=== PATIENT | female | born 2005 | race Caucasian/White ===

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

== ENCOUNTER 2024-01-24 20:18 | Emergency (ER) | payer OTHER, SELFPAY ==
[2024-01-24 20:23] VITALS: BP 124/86; PULSE 98; TEMP 37.2; O2SAT 97; BMI 41.1
--- OUTSIDE RECORDS SUMMARY | 2024-01-24 20:29 | XMS_ITS | CCD ---
Author Organization [facility]iniSyma Care Team Providers Care Entry Level Name Role Phone Martina Bedolla Attending Unavailable Hoy Claudia Valeriy Referring Unavailable Hoy, Claudia Valeriy Primary Care Unavailable Liss Aburto Attending Unav ailable Hoy, Claudia Valeriy Referring Unavailable Hoy, Claudia Valeriy Primary Care Unavailable Martina Bedolla Attending Unavailable Hoy, Claudia Valeriy Referring Unavailable Hoy, Claudia Valeriy Primary Care Unavailable Martina Bedolla Attending Unavailable Hoy, Claudia Valeriy Referring Unavailable Hoy, Claudia Valeriy Primary Care Unavailable Claudia Ellington Primary Care Physician MD Claudia Ellington Primary Care Provider [phone] MD Claudia Ellington Attending Provider [phone] CARL[address] ., DR TAYLOR Admitting Unavailable HOY ., [...] ., DR TAYLOR Primary Care Unavailable MARANDAHAIDER Attending Unavailable MARANDA, HAIDER Admitting Unavailable HAIDER LOW Consulting Unavailable HOY ., DR TYALOR Consulting Unavailable HOY ., DR TAYLOR Primary Care Unavailable HOY ., DR TAYLOR Attending Unavailable HOY ., DR TAYLOR Admdarwin Unavailable HOY ., DR TAYLOR Admdarwin Unavailable [...] Unavailable HOY ., DR TAYLOR Admdarwin Unavailable HOY, CLAUDIA M Primary Care Unavailable KATHRINE CARBALLO Attending Unavailable HOY, CLAUDIA M Referring Unavailable HOY, CLAUDIA M Referring Unavailable RADHA DANIEL Attending Unavailable HOY, CLAUDIA M Primary Care Unavailable JUAN MIGUEL HUYNH Attending Unavailable JESÚS BROWNE Referring Unavailable HOY, CLAUDIA M Primary Care Unavailable HOY, CLAUDIA M Referring Unavailable CARLOSCLAUDIA De La Cruz M Primary Care Unavailable RADHA DANIEL Attending Unavailable RAKELCLAUDIA M Primary Care Unavailable HAN BOLAÑOS Referring Unavailable STEVE BAUM Attending Unavailable RAKELCLAUDIA M Primary Care Unavailable JUAN MIGUEL HUYNH Attending Unavailable HAN BOLAÑOS Referring Unavailable MD Claudia Ellington Primary Care Provider [phone] MD John Monson Admit Provider MD John Monson Attending Provider Claudia Ellington MD Primary Care Provider [phone] VALORIE HANSEN Attending Unavailable RAKELCLAUDIA M Primary Care Unavailable CLADUIA ELLINGTON M Referring Unavailable Lawrence Reveles Attending Unavailable Ramiro, Melecio Consulting Unavailable Jennifer RETANA Admitting Unavailable Ramiro, MD Majano Consulting Unavailable Odell, Melecio Consulting Unavailable Odell, Melecio Consulting Unavailable Odell, Melecio Consulting Unavailable Odell, Melecio Consulting Unavailable Odell, Melecio Consulting Unavailable Odell, Melecio Consulting Unavailable Odell, Melecio Consulting Unavailable Radha Whipple Attending Unavailable Radha Whipple Attending Unavailable CHERYL SALCIDO Referring UnavailAkosua Moore Admitting Unavailable Akosua LR Attending Unavailable Ramiro, Melecio Consulting Unavailable Ramiro, MD Majano Consulting Unavailable Odell, Melecio Consulting Unavailable Odell, Melecio Consulting Unavailable Odell, Melecio Consulting Unavailable Odell, Melecio Consulting Unavailable Odell, Melecio Consulting Unavailable Odell, Melecio Consulting Unavailable Odell, Melecio Consulting Unavailable MISTY MACKEY Attending Unavailable MISTY MACKEY Admitting Unavailable Claudia Ellington M Primary Care Unavailable John Monson Attending Unavailable John Monson Admitting Unavailable Rakel Claudia M Primary Care Unavailable Robson White Attending Unavailab Robson Aj Admitting Unavailab le RakelClaudia M Primary Care Unavailable Noel Stratton Admitting UnavailPeyton Louie Attending Unavailable Migue Farrell Attending Unavailable Radha Whipple Attending Unavailable Migue Farrell Attending Unavailable Zenon Hernandez Attending Unavailable Medications Current Medications Medication Drug Class(es) Dates Sig (Normalized) Sig (Original) acetaminophen 325 mg / butalbital 50 mg / caffeine 40 mg oral tablet (5 sources) Barbiturate, Central Nervous System Stimulant, Methylxanthine Start: 03-16-2023 take 1 tablet by mouth every four hours for headache APAP/butalbital/ caffeine 325 mg-50 mg-40 mg Tab 1 tab(s), Oral, q4hr for headache, 15 tab(s), Refill(s) 0, [id number], 165.1, cm, 03/16/23 16:58:00 EDT, Height/Length Dosing, 118.1, kg, 03/16/23 16:58:00 EDT, Weight Dosing Start Date: 03/16/23 Status: Ordered acetaminophen 325 mg / HYDROcodone bitartrate 5 mg oral tablet (2 sources) Opioid Agonist Start: 01-13-2024 take 1 tablet by mouth every six hours as needed for pain and pain, then take 8 tablets by mouth every four to six hours as needed for pain and pain Rimforest 325 mg-5 mg oral tablet 1 tab(s), Oral, q6hr for pain, 8 tab(s), Refill(s) 0, 1 to 2 tabs every 4 to 6 hours as needed for pain, Pain, [id number], 165.1, cm, 01/13/24 18:35:00 EDT, Height/Length Dosing, 117.7, kg, 01/13/24 18:35:00 EDT, Weight Dosing Start Date: 01/13/24 Status: Ordered cefdinir (8 sources) Cephalosporin Antibacterial Start: 04-28-2019 Omnicef 250mg/5 mL oral suspension Oral, Refills(s) 0 Start Date: 04/28/19 Status: Ordered cetirizine hydrochloride 5 mg oral tablet (5 sources) Histamine-1 Receptor Antagonist Start: 05-11-2023 take 2 tablets by mouth once daily cetirizine 5 mg oral tablet 10 mg = 2 tab(s), Oral, Daily, # 30 tab(s), Refills(s) 0 Start Date: 05/11/23 Status: Ordered Start: 03-10-2023 take 20 mg by mouth once daily Cetirizine Active 20 MG PO Daily March 10, 2023 12:00am cloNIDine hydrochloride 0.1 mg oral tablet (6 sources) Central alpha-2 Adrenergic Agonist Start: 05-11-2023 take 1 tablet by mouth once daily cloNIDine 0.1 mg tab 0.1 mg = 1 tab(s), Oral, Daily, Refills(s) 0 Start Date: 05/11/23 Status: Ordered Start: 03-10-2023 End: 03-13-2023 take 0.15 mg by mouth at bedtime Clonidine Hcl Active 0.15 MG PO Bedtime March 13, 2023 9:40am Norethindrone-E.Estradiol-Ir on (8 sources) Estrogen Start: 03-10-2023 Norethindrone-E.Estradiol-Ir on (08/22 [...] 1 tablet by mouth daily. 0 Active famotidine 10 mg oral tablet (2 sources) Histamine-2 Receptor Antagonist Start: 01-13-2024 take 1 tablet by mouth twice daily as needed for pain Pepcid AC 10 mg oral tablet 10 mg = 1 tab(s), Oral, BID, PRN Pain, # 30 tab(s), Refills(s) 0, Pharmacy: [id number], 165.1, cm, 01/13/24 18:35:00 EDT, Height/Length Dosing, 117.7, kg, 01/13/24 18:35:00 EDT, Weight Dosing Start Date: 01/13/24 Status: Ordered fluocinolone acetonide 0.1 mg/ml topical cream (8 sources) Corticosteroid Start: 04-28-2019 fluocinolone Top 0.01% Crm 1 sean, Topical, BID, 30 gram, Refill(s) 0 Start Date: 04/28/19 Status: Ordered Start: 04-28-2019 fluocinolone T op 0.01% Crm 1 sean, Topical, BID, 30 gram, Refill(s) 0 Start Date: 04/28/19 Status: Ordered FLUoxetine 40 mg oral capsule (7 sources) Serotonin Reuptake Inhibitor Start: 12-19-2022 FLUoxetine [...] 0 Active lamoTRIgine 25 mg oral tablet (4 sources) Mood Stabilizer, Anti-epileptic Agent Start: 05-11-2023 take 1 tablet by mouth once daily Lamictal 25 mg Tab 25 mg = 1 tab(s), Oral, Daily, Refills(s) 0 Start Date: 05/11/23 Status: Ordered Start: 03-10-2023 take 25 mg by mouth once daily Lamotrigine Active 25 MG PO Daily March 10, 2023 12:00am levETIRAcetam 500 mg oral tablet (7 sources) Start: 05-13-2023 take 1 tablet by mouth twice daily Keppra 500 mg Tab 500 mg = 1 tab(s), Oral, BID, # 60 tab(s), Refills(s) 0, Pharmacy: [id number], 165.1, cm, 05/11/23 8:01:00 EDT, Height/Length [...] anxiety, # 15 tab(s), Refills(s) 0, Pharmacy: [id number], 165, cm, 07/04/22 18:11:00 EST, Height/Length Dosing, 103.4, kg, 07/04/22 18:11:00 EST, Weight Dosing Start Date: 07/04/22 Status: Ordered lurasidone hydrochloride 60 mg oral tablet (7 sources) Atypical Antipsychotic Start: 03-10-2023 take 60 [...] (1 source) Polyene Antifungal Start: 06-16-2023 nystatin [id number] UNIT/GM Powder powder Apply 1 Application topically. 0 06/16/2023 Active ondansetron 4 mg disintegrating oral tablet (1 source) Serotonin-3 Receptor Antagonist Start: 06-18-2023 End: 06-18-2023 take 1 tablet by mouth once Ondansetron 4 MG Tab Dispersible tablet Take 1 tablet by mouth once. 0 06/18/2023 Active pantoprazole 40 mg oral granules (7 sources) Proton Pump Inhibitor Start: 05-11-2023 pantoprazole Sodium (Protonix) 40 MG Pack Take 1 packet by mouth. 0 05/11/2023 Active Start: 05-11-2023 Protonix 40 mg tablet Refills(s) 0 Start Date: 05/11/23 Status: Ordered Start: 06-17-2017 End: 03-10-2023 take 40 mg by mouth once daily Pantoprazole Discontinu ed 40 MG PO Daily June 17, 2017 1:00am March 10, 2023 5:27pm traMADol hydrochloride 50 mg oral tablet (2 sources) Opioid Agonist Start: 01-12-2024 take 1-2 tablets by mouth every six hours as needed for pain traMADOL 50 mg Tab 1-2 tabs, Oral, q6hr, PRN Pain, # 8 tab(s), Refills(s) 0, Pharmacy: [id number], 165.1, cm, 01/12/24 15:00:00 EDT, Height/Length Dosing, 117.7, kg, 01/12/24 15:00:00 EDT, Weight Dosing Start Date: 01/12/24 Status: Ordered Zofran ODT 4 mg Tab-Dis (3 sources) Start: 01-12-2024 take 1 tablet by mouth every eight hours as needed for nausea Zofran ODT 4 mg Tab-Dis 4 mg = 1 tab(s), Oral, q8hr, PRN Nausea/Vomiting, # 12 tab(s), Refills(s) 0, Pharmacy: [id number], 165.1, cm, 01/12/24 15:00:00 EDT, Height/Length Dosing, 117.7, kg, 01/12/24 15:00:00 EDT, Weight Dosing Start Date: 01/12/24 Status: Ordered Completed/Discontinued Medications Medication Drug Class(es) Dates Sig (Normalized) Sig (Original) hyoscyamine sulfate 0.125 mg sublingual tablet (2 sources) Start: 06-17-2017 End: 03-10-2023 take 0.125 mg under the tongue at bedtime Hyoscyamine Sulfate Discontinued 0.125 MG SUBLINGUAL Before meals and at bedtime June 17, 2017 1:00am March 10, 2023 3:49pm melatonin 3 MG / pyridoxine hydrochloride 10 MG Extended Release Oral Tablet (6 sources) Start: 12-19-2022 take 1 tablet by [...] Classification Problem Date Documented Da te Episodic/Chronic Abdominal pain (1 source) Generalized abdominal pain; Translations: [Generalized abdominal pain] Onset: 4 Episodic Acute bronchitis (1 source) Acute bronchitis, unspecified; Translations: [ACUTE BRONCHITIS UNSPECIFIED] Onset: 3 Episodic Anxiety disorders (4 sources) Anxiety 05-11-2023 Chronic Conditions associated with dizziness [...] status epilepticus] Onset: 2 Chronic Epilepsy; convulsions (17 sources) Seizure; Translations: [Unspecified convulsions] Onset: 2 Episodic Fluid and electrolyte disorders (1 source) Hypokalemia; Translations: [Hypokalemia] Onset: 3 Episodic Menstrual disorders (4 sources) Excessive and frequent menstruation with irregular cycle; Translations: [EXCESS AND FREQ MEN W/IRREG CYCLE] Onset: 2 Chronic Mood disorders (10 sources) Depressive disorder; Translations: [Depression] Onset: 3 07-15-2017 Chronic Nausea and vomiting (3 sources) Nausea with vomiting, unspecified; Translations: [Nausea] Onset: 2 Episodic Noninfectious gastroenteritis (1 source) Gastroenteritis 01-20-2024 Episodic Nonmalignant breast conditions (1 source) Large breast; Translations: [Hypertrophy of breast] 06-30-2023 Episodic Other aftercare (1 source) Long-term current use of drug therapy; Translations: [Other usp (current) drug therapy] Onset: 3 Episodic Other gastrointestinal disorders (1 source) H/O: gastrointestinal disease; Translations: [Personal history of other diseases of the digestive system] Onset: 3 Episodic Other injuries and conditions due to external causes (1 source) Injury of head; Translations: [Unspecified injury of head, initial encounter] Onset: 3 Episodic Other liver diseases (1 source) Enzyme level - finding; Translations: [Abnormal levels of other serum enzymes] Onset: 4 Episodic Other nutritional; endocrine; and metabolic disorders [...] Translations: [ACUTE SINUSITIS UNSPECIFIED] Onset: 2 Episodic Pancreatic disorders (not diabetes) (3 sources) Acute pancreatitis; Translations: [Acute pancreatitis without necrosis or infection, unspecified] Onset: 4 Episodic Poisoning by other medications and drugs (2 sources) Accidental acetaminophen poisoning; Translations: [Poisoning by 4-Aminophenol derivatives, accidental (unintentional), initial encounter] Onset: 3 Episodic Residual codes; unclassified (1 source) Insomnia; Translations: [Insomnia, unspecified] Onset: 3 Episodic Residual codes; unclassified (1 source) FH: Gastrointestinal disease; Translations: [Family history of other diseases of the digestive system] Onset: 4 Episodic Residual codes; unclassified (1 source) Family history of disorder of pancreas 01-22-2024 Episodic Spondylosis; intervertebral disc disorders; other back problems (1 source) Pain in thoracic spine; Translations: [Pain in thoracic spine] 06-30-2023 Episodic Substance-related disorders (13 sources) Smoker; Translations: [Nicotine dependence] Onset: 4 05-24-2022 Chronic Comment on above: Added secondary [...] unspecified; Translations: [ANEMIA UNSPECIFIED] Onset: 04-30-2022 Episodic Other circulatory disease (1 source) Other [...] Test Name Value Interpretation Reference Range Facility Ambulatory Visit Summaryon 0 01-22-2024 Ambulatory Visit Summary [facility] SCHNEIDER :2005 Visit Date:01/22/2024 Ambulatory Visit Instructions Your Diagnosis Acute pancreatitis Smoker Family history of pancreatitis Your Care Team Attending Physician - Zenon Hernandez MD Primary Care Physician - Claudia Ellington MD This Is Your Medications List Contact prescribing physician if questions or concerns APAP/butalbital/caffeine (APAP/butalbital/caffeine 325 mg-50 mg-40 mg Tab) acetaminophen-hydrocodone (Rimforest 325 mg-5 mg oral tablet) cetirizine (cetirizine 5 mg oral tablet) clonidine (cloNIDine 0.1 mg tab) ethinyl estradiol-norethindrone (Junel Fe 08/22 oral tablet) famotidine (Pepcid AC 10 mg oral tablet) fluoxetine (FLUoxetine 40 mg Cap) lurasidone (lurasidone 60 mg oral tablet) melatonin-pyridoxine (melatonin-pyridoxine 3 mg-10 mg oral tablet, extended release) ondansetron (Zofran ODT 4 mg Tab-Dis) pantoprazole (Protonix 40 mg tablet) Procedures Performed Myringotomy and drainage of middle ear. Discharge Vitals Heart Rate (Peripheral) 94 Respiratory Rate 16 Blood Pressure 111/78 Height 165 cm Height 65 in Weight 116 kg Weight 255.2 lb BMI 42.61 What to do next You Need to Complete the Following CT Abdomen w/ Contrast, 01/22/24, Routine, Order for future visit, Transport Mode: Ambulatory, Reason: Pancreatitis, No, No, Acute pancreatitis Normal [facility] Gastroenterology Office/Clin ic Noteon 01-22-2024 Gastroenterology Office/Clinic Note Chief Complaint follow up to er, abdominal pain, pancreatitis HPI Staff This is a 18 year old female who presents today for a follow up from [facility] ER on 01/12/2024 and 01/13/2024 abdominal pain, generalized abd pain [facility] ED: 01/13/2024 Chief Complaint seen here yesterday told she was just shy of pancreatitis. states abdominal pain worse. 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 denies n/v History of Present Illness Patient is a 18-year-old female with a history of seizures who presents with worsening epigastric pain that began a couple days ago. Patient states she came to the ED yesterday for similar symptoms where she was diagnosed with an elevated lipase and prescribed tramadol for pain. Patient states she took 1 dose of tramadol 4 hours prior to arrival but has not had relief of pain. She denies any nausea or vomiting. She states she has also been constipated for the past 2 days. Patient denies any chest pain, shortness of breath, dysuria, hematuria, or fever. Patient states she was currently on control. Discharge Prescription List Prescriptions Rimforest 325 mg-5 mg oral tablet, 1 tab(s), Oral, q6hr, PRN Pepcid AC 10 mg oral tablet, 10 mg= 1 tab(s), Oral, BID, PRN [facility] ED: 01/12/2024 Chief Complaint abd pain all over worse today. currently menstruating. History of Present Illness Patient is 18-year-old female with history of GERD, bipolar, seizure disorder, MDD that presents to the ED with mother for evaluation of abdominal pain. Patient says she has been experiencing abdominal pain that was bearable for the past few days but today became unbearable . Pain is nonfocal and she says her entire abdomen hurts. It is worse with sitting and standing, better when lying flat. She has tried pantoprazole, Pepto, chocolate laxatives and 2 tabs of naproxen all without relief. She says it feels like the pain radiates into her back and her chest. She rates the pain 9.5/10. She endorses associated nausea without emesis. Says she has not eaten any food today. Ate [employer] last night. She is currently on her menses. Says she had a normal, nonbloody bowel movement this morning. Has not recently been on any antibiotics. No one else at home is experiencing similar symptoms. She endorses dysuria and foul-smelling urine but denies hematuria, vaginal discharge, urinary urgency or frequency. Patient denies fever, chills, chest pain, shortness of breath, palpitations, vomiting, diarrhea, changes in BMs, black or bloody stools. Is not concerned for STIs. Has never had abdominal surgery. Daily medications: Clonidine (mother states this is for bipolar), duloxetine, Latuda, pantoprazole, Zyrtec, melatonin CT Abdomen/Pelvis w/ Contrast: 01/13/2024 IMPRESSION: No acute process in the abdomen/pelvis. Laboratory Results CBC CMP PT PTT Basophil Absolute: 0 E9/L (01/13/24) A/G Ratio: 1 Low (01/13/24) INR: 1 (03/09/23) PTT: 32.2 second(s) (03/08/23) Basophil Auto: 0.6 % (01/13/24) AGAP: 9 mEq/L (01/13/24) PT: 10.6 second(s) (03/09/23) Eos Absolute: 0.2 E9/L (01/13/24) Albumin Lvl: 3.4 gm/dL (01/13/24) Eos Auto: 2.6 % (01/13/24) Alk Phos: 45 Int._Unit/L (01/13/24) Hct: 35.6 % (01/13/24) ALT: 11 Int._Unit/L (01/13/24) HGB: 11.8 gm/dL Low (01/13/24) AST: 12 Int._Unit/L (01/13/24) Lymph Absolute: 2.9 E9/L (01/13/24) Bili Total: 0.3 mg/dL (01/13/24) Lymph Auto: 40.4 % (01/13/24) BUN: 9 mg/dL (01/13/24) MCH: 28 pg (01/13/24) BUN/Creat Ratio: 11 (01/13/24) MCHC: 33.1 gm/dL (01/13/24) Calcium Lvl: 8.6 mg/dL Low (01/13/24) MCV: 84.7 fL (01/13/24) Chloride: 105 mmol/L (01/13/24) Becker Absolute: 0.5 E9/L (01/13/24) CO2: 27 mmol/L (01/13/24) Becker Auto: 7.4 % (01/13/24) Creatinine: 0.8 mg/dL (01/13/24) MPV: 8.1 fL (01/13/24) Globulin: 3.3 gm/dL (01/13/24) Neutro Absolute: 3.5 E9/L (01/13/24) Glucose Lvl: 96 mg/dL (01/13/24) Neutro Auto: 49 % (01/13/24) Potassium Lvl: 3.6 mmol/L (01/13/24) Platelet: 394 E9/L (01/13/24) Sodium Lvl: 137 mmol/L (01/13/24) RBC: 4.2 E12/L Low (01/13/24) Total Protein: 6.7 gm/dL (01/13/24) RDW: 13.8 % (01/13/24) WBC: 7.1 E9/L (01/13/24) History of Present Illness I have reviewed HPI staff note, most recent labs and imaging, more than 30 minutes spent reviewing the chart, during encounter, placing orders and counseling the patient. pt with recent pancreatitis used to have pain and diarrhea after eating greasy food pt does not drink alcohol mother with recurrent pancreatitis s/p melany back to regular diet Review of Systems All systems reviewed, negative except as mentioned above Physical Exam Vitals & Measurements HR: 94(Peripheral) RR: 16 BP: 111/78 HT: 65 in HT: 165 cm WT: 116 kg WT: 255.2 lb BMI: 42.61 General: alert, no acute distress HEENT: atraumatic normocephalic Cardiovascular: regular rate and rhythm, normal peripheral perfusion Respiratory: Lungs CTA, respirations non labored Extremities: no deformity, no trauma Abdomen: Benign, soft, nontender (more content not included)... Normal [facility] Comment on above: Result Comment: Elec tronically Signed By: David AMRCANO, Zenon Ratliff\.br\Date and Time Signed: 01/22/24 10:01 EDT ED Note-Physicianon 01-15-20 ED Note-Physician Basic Information Time Seen: Liss Schroeder PA-C 01/12/2024 14:53 Chief Complaint abd pain all over worse today. currently menstruating. History of Present Illness Patient is 18-year-old female with history of GERD, bipolar, seizure disorder, MDD that presents to the ED with mother for evaluation of abdominal pain. Patient says she has been experiencing abdominal pain that was bearable for the past few days but today became unbearable . Pain is nonfocal and she says her entire abdomen hurts. It is worse with sitting and standing, better when lying flat. She has tried pantoprazole, Pepto, chocolate laxatives and 2 tabs of naproxen all without relief. She says it feels like the pain radiates into her back and her chest. She rates the pain 9.5/10. She endorses associated nausea without emesis. Says she has not eaten any food today. Ate [employer] last night. She is currently on her menses. Says she had a normal, nonbloody bowel movement this morning. Has not recently been on any antibiotics. No one else at home is experiencing similar symptoms. She endorses dysuria and foul-smelling urine but denies hematuria, vaginal discharge, urinary urgency or frequency. Patient denies fever, chills, chest pain, shortness of breath, palpitations, vomiting, diarrhea, changes in BMs, black or bloody stools. Is not concerned for STIs. Has never had abdominal surgery. Daily medications: Clonidine (mother states this is for bipolar), duloxetine, Latuda, pantoprazole, Zyrtec, melatonin Review of Systems A 10 point review of systems is negative except as noted above. Medical and Surgical History: Reviewed and noted Social history: Lives at home Substance use: Vapes nicotine Physical Exam Vitals & Measurements T: 37 ?C(Oral) HR: 93(Peripheral) RR: 18 BP: 135/86 SpO2: 99% HT: 165.1 cm WT: 117.7 kg BMI: 43.18 Appearance: Evaded BMI. Nontoxic-appearing, alert and awake. Speaking in complete sentences. Calm. Cooperative. Vital signs reviewed, hypertensive otherwise WNL Skin: Warm, dry, intact. Eyes: PERRL. Vision grossly intact. ENT: Buccal mucosa pink and moist. Hearing grossly normal Respiratory: LCTA b/l with normal bilateral excursion. No wheezes, rhonchi, rales. Cardiovascular: Hypertensive. RRR, no murmurs. 2+ symmetrical radial and dorsalis pedis pulses. Normal cap refill. No LE edema. Chest wall: Normal chest wall appearance and motion. Abdomen/GI: Soft, nontender, nondistended. No guarding, rigidity, rebound tenderness. NABS x4. : No CVA tenderness Neuro: Alert and awake, speech Clear, cranial nerves grossly intact. Extremities: No deformity noted on exam. Patient spontaneously moves all 4 extremities. Medical Decision Making Limitations to history: None Nursing Notes: Reviewed and utilized the nursing notes. Previous records reviewed: Reviewed [facility]. No concerning findings. MDM: Patient is well-appearing 18-year-old female presents to the ED for evaluation of abdominal pain and nausea. On exam her abdomen is soft, nontender, nondistended. Negative Miranda's and no McBurney point tenderness. She has good peripheral perfusion. No CVA tenderness. No flank pain. Is endorsing UTI type symptoms. Will obtain labs, urine. Patient to be given Zofran, IV Toradol and 1 L normal saline for symptom management. We discussed obtaining CT imaging and through shared decision making decided against CT at this time due to increased risk of cancer from radiation and low suspicion for any acute surgical intra-abdominal pathology. Will obtain labs and treat symptoms with medication. If there are any glaringly abnormal labs can reconsider. I personally reviewed labs. CBC without abnormalities. CMP without abnormalities. Lipase elevated 2-1/2 times normal at 158, possible that this is early/developing pancreatitis. Patient denies alcohol use. Urine in process. Urine without signs of infection. On reassessment, patient's abdomen remains benign. She says pain has improved to a 4/10. She feels much better. I discussed lab findings with her. With we did talk about this could be an early pancreatitis. Decided against CT imaging as it will not change consultant. Patient will be sent home with pain control and I advised liquid diet for the next few days. Increasing to solid foods as tolerated. Advised that she follow-up with primary care provider within the next 2 to 5 days and return to ER for any new or worsening symptoms. She is agreeable with this plan. Discussions with other providers: Attending Sole Appropriate for: Outpatient mgmt Assessment/Plan 1. Generalized abdominal pain (R10.84: Generalized abdominal pain) 2. Nausea (R11.0: Nausea) Ordered: ondansetron, 4 mg = 1 tab(s), Oral, q8hr, PRN Nausea/Vomiting, # 12 tab(s), Refills(s) 0, Pharmacy: [facility]/pharmacy #[id number], 165.1, cm, 01/12/24 15:00:00 EDT, Height/Length Dosing, 117.7, kg, 01/12/24 15:00:00 EDT, Weight Dosing 3. Elevated lipase (R74.8: Abnormal levels of other serum enzymes) Ordered: tram (more content not included)... Normal [facility] Comment on above: Result Comment: Elec tronically Signed By: Liss [place] PA-C\.br\Date and Time Signed: 01/12/24 17:06 EDT\.br\Electronically Co-Signed By: Radha Whipple DO\.br\Date and Time Co-Signed: 01/15/24 07:[address] Abdomen/Pelvis w/ Contras ton 01-14-2024 CT Abdomen/Pelvis w/ Contrast Exam Date/Time: 01/13/2024 19:28 EDT Reason for Exam: Epigastric pain;Other (please specify) Report IMPRESSION: No acute process in the abdomen/pelvis. EXAMINATION: CT Abdomen/Pelvis w/ Contrast HISTORY: Epigastric pain. TECHNIQUE: CT of the abdomen and pelvis was performed using standard technique with intravenous contrast, scanning from just above the dome of the diaphragm to the symphysis pubis. Including delayed images through the kidneys. Including sagittal and coronal reconstructions on both phases. Unless otherwise stated, incidental findings identified in this report do not require routine follow-up imaging. All CT scans at this facility use dose modulation, iterative reconstruction, and/or weight based dosing when appropriate to reduce radiation dose to as low as reasonably achievable. COMPARISON: None. RESULT: Liver: No mass or lesion. Biliary: Gallbladder unremarkable. No biliary ductal dilation. Pancreas: No mass or duct dilation. Spleen: No mass or splenomegaly. Adrenals: No mass. Kidneys: No calculus or hydronephrosis. No suspicious renal lesions. Delayed phase images unremarkable. GI tract: No dilation or wall thickening. Normal appendix. Lymph nodes: No abdominal or pelvic lymphadenopathy. Mesentery/Peritoneum/Retr operitoneum: No ascites or mass. Vasculature: The celiac axis and SMA are patent. The portal vein and branches, splenic vein, SMV, and hepatic veins are patent. No abdominal aortic or iliac artery Report aneurysm. Pelvis: Trace free fluid, likely physiologic. Uterus unremarkable. Adnexal regions unremarkable. Incidental tampon. Bladder decompressed. Bones: No acute osseous findings. 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 Soft tissues: Unremarkable. Lower thorax: Unremarkable. Ordering Provider: Mirella Camilo FINAL REPORT Dictated: 01/14/2024 9:07 am Mina Botello MD Signed (Electronic Signature): 01/14/2024 9:07 am Signed by: Mina Botello MD Transcribed by: GARTH Technologist: SRF Technical Comments GFR (mL/min/1/73m2) n/a-age Contrast: Isovue 300 Contrast amount in ml's: 100 Normal [facility] ED Note-Physicianon 01-14-20 24 ED Note-Physician Basic Information Time Seen: Mirella Camilo PA-C 01/13/2024 18:36 Chief Complaint seen here yesterday told she was just shy of pancreatitis. states abdominal pain worse. 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 denies n/v History of Present Illness Patient is a 18-year-old female with a history of seizures who presents with worsening epigastric pain that began a couple days ago. Patient states she came to the ED yesterday for similar symptoms where she was diagnosed with an elevated lipase and prescribed tramadol for pain. Patient states she took 1 dose of tramadol 4 hours prior to arrival but has not had relief of pain. She denies any nausea or vomiting. She states she has also been constipated for the past 2 days. Patient denies any chest pain, shortness of breath, dysuria, hematuria, or fever. Patient states she was currently on control. Review of Systems A 10 point review of systems is negative except as noted above. Medical and Surgical History: Reviewed and noted Social history: Lives at home Family History: Reviewed. Tobacco: e-cigarette Physical Exam Vitals & Measurements T: 36.9 ?C(Oral) HR: 75(Peripheral) RR: 16 BP: 139/90 SpO2: 96% HT: 165.1 cm WT: 117.7 kg BMI: 43.18 General: The patient appears well and in no apparent distress. Patient is resting comfortably on cart. Skin: Warm, dry, no pallor noted. Head: Normocephalic, atraumatic Eye: PERRLA, EOMI ENT: Moist mucus membranes Cardiovascular: Regular rate normal peripheral perfusion Respiratory: No respiratory distress no accessory muscle use no obvious audible wheezing Musculoskeletal: normal ROM, no deformity, no swelling GI: Epigastric tenderness to palpation, soft, no obvious distention. No rebound or rigidity. No guarding. No CVA tenderness Neurological: A&O moves all extremities equal strength and symmetry Psychiatric: Cooperative and appropriate Medical Decision Making Patient is a 18-year-old female with a history of seizures who presents with worsening epigastric pain that began a couple days ago. Patient states she came to the ED yesterday for similar symptoms where she was diagnosed with an elevated lipase and prescribed tramadol for pain. A chart review was conducted and patient's lab work from yesterday was unremarkable aside from a lipase of 158. No imaging was conducted at this time. Patient received Zofran and Toradol while in the ED. Today's lab work reveals a lipase of 144. ALT, AST, and alk phos are within normal limits. Calcium is 8.6. Urinalysis showed WBC, squamous epithelium, RBC, and blood correlating with the patient being on her menstrual cycle. CT abdomen and pelvis is unremarkable, including the pancreas, with no acute intra-abdominal processes. The patient is being discharged with Rimforest and Pepcid for pain management. Patient states she has Zofran at home already for nausea. She will follow-up with GI for further management of care. She was advised to return to the ED with any worsening symptoms. Patient was agree with plan with all questions were answered. Assessment/Plan Acute pancreatitis (K85.90: Acute pancreatitis without necrosis or infection, unspecified) Mild nausea (R11.0: Nausea) Orders: acetaminophen-hydrocodone , 1 tab(s), Oral, q6hr for pain, 8 tab(s), Refill(s) 0, 1 to 2 tabs every 4 to 6 hours as needed for pain, Pain, [id number], 165.1, cm, 01/13/24 18:35:00 EDT, Height/Length Dosing, 117.7, kg, 01/13/24 18:35:00 EDT, Weight Dosing acetaminophen-hydrocodone , 5 mL, Soln-Oral, Oral, Once, Stop date 01/13/24 20:44:00 EDT, STAT, Start date 01/13/24 20:44:00 EDT famotidine, 10 mg = 1 tab(s), Oral, BID, PRN Pain, # 30 tab(s), Refills(s) 0, Pharmacy: [facility]/pharmacy #[id number], 165.1, cm, 01/13/24 18:35:00 EDT, Height/Length Dosing, 117.7, kg, 01/13/24 18:35:00 EDT, Weight Dosing ketorolac, 15 mg = 1 mL, Injection, IV Push, Once, Stop date 01/13/24 18:53:00 EDT, STAT, Start date 01/13/24 18:53:00 EDT, 01/13/24 18:53:00 EDT ondansetron, 4 mg = 2 mL, Injection, IV Push, Once, Stop date 01/13/24 20:18:00 EDT, STAT, Start date 01/13/24 20:18:00 EDT, 01/13/24 20:18:00 EDT Sodium Chloride 0.9% intravenous solution 1,000 mL, 1,000 mL, IV, bolus, STAT, Start date 01/13/24 18:55:00 EDT, Total volume (mL): 1,000, Bolus Dose: 1,000 mL, 117.7 kg, 2.32, m2 Basic Metabolic Panel CBC w/ Auto Diff CT Abdomen/Pelvis w/ Contrast eGFR Extra Blue Tube Extra SST Tube Hepatic Function Panel Lipase Level UA with Cult Rflx Medications Administered Given Sodium Chloride 0.9% IV Britney 1000 mL 1,000 mL, 1000 mL, IV acetaminophen-hydrocodone 325 mg-7.5 mg/15 mL oral solution, 5 mL, Oral ketorolac 15 mg/mL Inj, 15 mg, IV Push ondansetron 4 mg/2 mL Inj, 4 mg, IV Push Disposition Plan Patient Discharge Condition improved Discharge Disposition home Discharge Prescription List Prescriptions Rimforest 325 mg-5 mg oral tablet, 1 tab(s), Oral, q6hr, PRN Pepcid AC 10 mg oral tablet, 10 mg= 1 tab(s), Oral, BID, PRN Follow- (more content not included)... Normal [facility] Comment on above: Result Comment: Elec tronically Signed By: Mirella Camilo PA-C\.br\Date and Time Signed: 01/13/24 21:12 EDT\.br\Electronically Co-Signed By: Mirella Camilo PA-C\.br\Date and Time Co-Signed: 01/14/24 00:04 EDT\.br\Electronically Co-Signed By: Migue Farrell M.D.\.br\Date and Time Co-Signed: 01/14/24 07:02 EDT BMPon 01-13-2024 Anion gap [Moles/Vol] 9 mmol/L Normal 6-16 [facility] Comment on above: Performed By: #### 2 [id number] #### [facility] [address] [place] [address] Calcium [Mass/Vol] 8.6 mg/dL Low 8.9-11.1 [facility] Comment on above: Performed By: #### 2 [id number] #### [facility] [address] [place] [address] Chloride [Moles/Vol] 105 mmol/L Normal 101-111 [facility] Comment on above: Performed By: #### 2 [id number] #### [facility] [address] [place] [address] CO2 [Moles/Vol] 27 mmol/L Normal 21-31 [facility] Comment on above: Performed By: #### 2 [id number] #### [facility] [address] [place] [address] Creatinine [Mass/Vol] 0.8 mg/dL Normal 0.5-1.3 [facility] Comment on above: Performed By: #### 2 [id number] #### [facility] [address] [place] [address] Glucose [Mass/Vol] 96 mg/dL Normal 55-199 [facility] Comment on above: Performed By: #### 2 [id number] #### [facility] [address] [place] [address] Potassium [Moles/Vol] 3.6 mmol/L Normal 3.5-5.3 [facility] Comment on above: Performed By: #### 2 [id number] #### [facility] [address] [place] [address] Sodium [Moles/Vol] 137 mmol/L Normal 135-145 [facility] Comment on above: Performed By: #### 2 [id number] #### [facility] [address] [place] [address] Urea nitrogen [Mass/Vol] 9 mg/dL Normal 5-21 [facility] Comment on above: Performed By: #### 2 [id number] #### [facility] [address] [place] [address] Urea nitrogen/Creatinine [Mass ratio] 11 No Units Normal 10-20 [facility] Comment on above: Performed By: #### 2 [id number] #### [facility] [address] [place] [address] CBC w/ Auto Diffon 4 Basophils/100 WBC (Bld) 0.6 % Normal 0.0-2.0 [facility] Comment on above: Performed By: #### 2 [id number] #### [facility] [address] [place] [address] Basophils/Leukocytes Auto (Bld) [Pure # fraction] 0.0 E9/L Normal 0.0-0.2 [facility] Comment on above: Performed By: #### 2 [id number] #### [facility] [address] [place] [address] Eosinophils (Bld) [#/Vol] 0.2 E9/L Normal 0.0-0.5 [facility] Comment on above: Performed By: #### 2 [id number] #### [facility] [address] [place] [address] Eosinophils/100 WBC (Bld) 2.6 % Normal 0.0-8.0 [facility] Comment on above: Performed By: #### 2 [id number] #### [facility] [address] [place] [address] Erythrocyte distribution width (RBC) [Ratio] 13.8 % Normal 10.9-14.2 [facility] Comment on above: Performed By: #### 2 [id number] #### [facility] [address] [place] [address] Hematocrit (Bld) [Volume fraction] 35.6 % Normal 34.0-46.0 [facility] Comment on above: Performed By: #### 2 [id number] #### [facility] [address] [place] [address] Hemoglobin (Bld) [Mass/Vol] 11.8 g/dL Low 12.0-16.0 [facility] Comment on above: Performed By: #### 2 [id number] #### [facility] [address] [place] [address] Lymphocytes (Bld) [#/Vol] 2.9 E9/L Normal 1.0-4.0 [facility] Comment on above: Performed By: #### 2 [id number] #### [facility] [address] [place] [address] Lymphocytes/100 WBC (Bld) 40.4 % Normal 14.0-50.0 [facility] Comment on above: Performed By: #### 2 [id number] #### [facility] [address] [place] [address] MCH (RBC) [Entitic mass] 28.0 pg Normal 27.0-34.0 [facility] Comment on above: Performed By: #### 2 [id number] #### [facility] [address] [place] [address] MCHC (RBC) [Mass/Vol] 33.1 g/dL Normal 31.4-36.0 [facility] Comment on above: Performed By: #### 2 [id number] #### [facility] [address] [place] [address] MCV (RBC) [Entitic vol] 84.7 fL Normal 80.0-100.0 [facility] Comment on above: Performed By: #### 2 [id number] #### [facility] [address] [place] [address] Monocytes (Bld) [#/Vol] 0.5 E9/L Normal 0.2-1.0 [facility] Comment on above: Performed By: #### 2 [id number] #### [facility] [address] [place] [address] Neutrophils (Bld) [#/Vol] 3.5 E9/L Normal 2.0-7.5 [facility] Comment on above: Performed By: #### 2 [id number] #### [facility] [address] [place] [address] Neutrophils/100 WBC (Bld) 49.0 % Normal 36.0-75.0 [facility] Comment on above: Performed By: #### 2 [id number] #### [facility] [address] [place] [address] Platelet mean volume (Bld) [Entitic vol] 8.1 fL Normal 6.4-10.8 [facility] Comment on above: Performed By: #### 2 [id number] #### [facility] [address] [place] [address] Platelets (Bld) [#/Vol] 394.0 E9/L Normal 150.0-500.0 [facility] Comment on above: Performed By: #### 2 [id number] #### [facility] [address] [place] [address] RBC (Bld) [#/Vol] 4.2 E12/L Low 4.3-5.9 [facility] Comment on above: Performed By: #### 2 [id number] #### [facility] [address] [place] [address] WBC corrected for nucl RBC Auto (Bld) [#/Vol] 7.1 E9/L Normal 4.0-11.0 [facility] Comment on above: Performed By: #### 2 [id number] #### [facility] [address] [place] [address] CHEMISTRYOrdered By: SYSTEM SYSTEM on 01-13-2024 Albumin [Mass/Vol] 3.4 g/dL Normal 3.3 - 5.0 gm/dL Remisol Chem Albumin/Globulin [Mass ratio] 1.0 {ratio} Low 1.1 - 2.2 Rem[facility] Chem ALP [Catalytic activity/Vol] 45 [iU]/d Normal 21 - 98 Int._Unit/L Remisol Chem ALT No additional P-5'-P [Catalytic activity/Vol] 11 [iU]/d Normal 6 - 46 Int._Unit/L [facility] Anion gap [Moles/Vol] 9 mmol/L Normal 6 - 16 mEq/L [facility] AST [Catalytic activity/Vol] 12 [iU]/d Normal 5 - 43 Int._Unit/L [facility] Bilirubin [Mass/Vol] 0.3 mg/dL Normal 0.0 - 1 .1 mg/dL [facility] Bilirubin.direct [Mass/Vol] 0.0 mg/dL Normal 0.0 - 0.4 mg/dL [facility] Bilirubin.indirect [Mass or moles/Vol] 0.3 mg/dL Normal 0.1 - 0.9 mg/dL [facility] Calcium [Mass/Vol] 8.6 mg/dL Low 8.9 - 11. 1 mg/dL [facility] Chloride [Moles/Vol] 105 mmol/L Normal 101 - 1 11 mmol/L [facility] CO2 [Moles/Vol] 27 mmol/L Normal 21 - 31 mmol/L [facility] Creatinine [Mass/Vol] 0.8 mg/dL Normal 0.5 - 1.3 mg/dL [facility] eGFR 109 mL/min/1.73 m2 Normal >=59mL/mi n/ 1.73 m2 [facility] Globulin (S) [Mass/Vol] 3.3 g/dL Normal 1.4 - 4.0 gm/dL [facility] Glucose [Mass/Vol] 96 mg/dL Normal 55 - 199 mg/dL [facility] Lipase [Catalytic activity/Vol] 144 U/L High 13 - 58 unit/L [facility] Potassium [Moles/Vol] 3.6 mmol/L Normal 3.5 - 5.3 mmol/L [facility] Protein [Mass/Vol] 6.7 g/dL Normal 6.0 - 7.8 gm/dL [facility] Sodium [Moles/Vol] 137 mmol/L Normal 135 - 145 mmol/L [facility] Urea nitrogen [Mass/Vol] 9 mg/dL Normal 5 - 21 mg/dL [facility] Urea nitrogen/Creatinine [Mass ratio] 11 mg/mg Normal 10 - 20 Remisol Chem Consent for Treatmenton 01-01 Consent for Treatment [id number] Normal [facility] Discharge Instructionson Discharge Instructions [id number] Normal [facility] ED Clinical Summaryon 2023 ED Clinical Summary (Inserted Image. Nida ble to display) [address] [address] ED Clinical Summary Person Information Name: ROSE MARY SCHNEIDER Kimberly/Maria Luisa Age: 18 Years : 2005 Sex: Female Language: Honduran PCP: Claudia Ellington MD Marital Status: Single Phone: [phone] Visit Id: Visit Reason: Abdominal pain; AB PAIN Speciality: Acuity: 3 Enc Type: Emergency Med Service: Emergency Arrival: 01/13/2024 18:21:08 Discharge: 01/13/2024 21:12:28 LOS: 000 02:51 Checkin: 01/13/2024 18:21:08 Checkout: 01/13/2024 21:12:28 Dispo Type: Home (Routine DC) EVENTS: Event Name Event Status Request Date/Time Start Date/Time Complete Date/Time Arrive Complete 01/13/2024 18:21:08 01/13/2024 18:21:08 01/13/2024 18:21:08 Document Home Meds Request 01/13/2024 18:21:08 Triage Complete 01/13/2024 18:21:08 01/13/2024 18:35:15 01/13/2024 18:35:15 Registration Complete 01/13/2024 18:25:34 01/13/2024 18:25:34 01/13/2024 18:25:34 Reg Complete Request 01/13/2024 18:25:34 Reg Bed Request Complete 01/13/2024 18:25:34 01/13/2024 18:25:34 01/13/2024 18:25:34 Bed Assign Complete 01/13/2024 18:29:20 01/13/2024 18:29:20 01/13/2024 18:29:20 Dr Exam Complete 01/13/2024 18:29:20 01/13/2024 18:36:07 01/13/2024 18:36:07 RN Exam Complete 01/13/2024 18:29:20 01/13/2024 18:48:39 01/13/2024 18:48:39 Registration Request 01/13/2024 18:36:07 CT Cancel 01/13/2024 18:54:15 01/13/2024 18:59:13 Meds Admin Complete 01/13/2024 18:54:15 01/13/2024 19:00:20 Meds Admin Request 01/13/2024 18:55:30 Pending Labs Complete 01/13/2024 18:57:11 01/13/2024 19:55:13 Lab Complete 01/13/2024 18:57:11 01/13/2024 19:39:32 CT Complete 01/13/2024 18:59:12 01/13/2024 19:13:37 01/13/2024 19:28:49 Dr Exam Complete 01/13/2024 19:07:58 01/13/2024 19:07:58 01/13/2024 19:07:58 Pending Labs Complete 01/13/2024 19:10:54 01/13/2024 19:10:54 01/13/2024 19:39:32 Lab Complete 01/13/2024 19:10:54 01/13/2024 19:10:54 01/13/2024 19:39:32 Pending Labs Complete 01/13/2024 19:11:21 01/13/2024 19:11:21 01/13/2024 19:11:21 Meds Admin Complete 01/13/2024 20:18:49 01/13/2024 20:24:18 Meds Admin Complete 01/13/2024 20:44:25 01/13/2024 21:06:56 Discharge Complete 01/13/2024 20:49:10 01/13/2024 21:12:34 01/13/2024 21:12:34 Transfer Complete 01/13/2024 21:12:34 01/13/2024 21:12:34 01/13/2024 21:12:34 ADDRESS: [address] [place] [phone] PHYS DOC NOTES: MEDICAL INFORMATION: Prescriptions Given: New Medications [facility]/pharmacy #[id number], [address], [place] [id number], [phone] acetaminophen-hydrocodone (Rimforest 325 mg-5 mg oral tablet) 1 Tablets By Mouth every 6 hours as needed for pain. 1 to 2 tabs every 4 to 6 hours as needed for pain. Refills: 0. famotidine (Pepcid AC 10 mg oral tablet) 1 Tablets By Mouth 2 times a day as needed Pain. Refills: 0. Medications to Continue with No Changes Other Medications APAP/butalbital/caffeine (APAP/butalbital/caffeine 325 mg-50 mg-40 mg Tab) 1 Tablets By Mouth every 4 hours as needed for headache. Refills: 0. cetirizine (cetirizine 5 mg oral tablet) 2 Tablets By Mouth every day. clonidine (cloNIDine 0.1 mg tab) 1 Tablets By Mouth every day. ethinyl estradiol-norethindrone (Junel Fe 08/22 oral tablet) 28 EA, TAKE 1 TABLET BY MOUTH EVERY DAY. fluoxetine (FLUoxetine 40 mg Cap) lamotrigine (Lamictal 25 mg Tab) 1 Tablets By Mouth every day. levetiracetam (Keppra 500 mg Tab) 1 Tablets By Mouth 2 times a day. Refills: 0. lurasidone (lurasidone 60 mg oral tablet) 30 EA, TAKE 1 TABLET BY ORAL ROUTE 1 TIME PER DAY WITH FOOD (AT LEAST 350 CALORIES). melatonin-pyridoxine (melatonin-pyridoxine 3 mg-10 mg oral tablet, extended release) 30 EA, TAKE 1 TABLET BY ORAL ROUTE PER AT BEDTIME NEEDED FOR INSOMNIA. ondansetron (Zofran ODT 4 mg Tab-Dis) 1 Tablets By Mouth every 8 hours as needed Nausea/Vomiting. Refills: 0. pantoprazole (Protonix 40 mg tablet) tramadol (traMADOL 50 mg Tab) 1-2 tabs By Mouth every 6 hours as needed Pain. Refills: 0. PATIENT EDUCATION INFORMATION: Instructions: Acute Pancreatitis, [id number] Follow up: With: Address: When: Zenon Hernandez [address] [place] [id number] [phone] [facility] (1) In 3 days 01/16/2024 Comments: Call to schedule an appointment with the pipe fitter marine for further management of care With: Address: When: Claudia Ellington [address] [id number] [facility] (1) In 3 days DIAGNOSIS: Acute pancreatitis; Mild nausea Normal [facility] ED Patient Education Noteon 01-13-2024 ED Patient Education Note Gastroenterology Acute Pancreatitis Acute pancreatitis happens when there is sudden swelling and irritation of the pancreas. The pancreas is a gland in your body that helps to control blood sugar. This gland also helps to digest food. This condition can last a few days and cause serious problems. Some problems can be life-threatening. The lungs, heart, and kidneys may stop working. What are the causes? Causes may include: ? Heavy alcohol use. ? Drug use. ? Gallstones. ? An abnormal growth of tissue (tumor) in the pancreas. Other causes include: ? Some medicines or some chemicals. ? Diabetes or infection. ? High levels of a type of fat in your blood. ? High levels of calcium in your blood. ? Damage caused by: ? An accident. ? The poison (venom) from a scorpion sting. ? Belly (abdominal) surgery. ? The body's defense system (immune system) attacking the pancreas (autoimmune pancreatitis). ? Genes that are passed from parent to child (inherited). Sometimes, the cause is not known. What are the signs or symptoms? ? Pain in the upper belly that may be felt in the back. The pain may be very bad. It often gets worse after you eat. ? A tender and swollen belly. ? Feeling like you may vomit (nausea) and vomiting. ? Fever. How is this treated? ? A stay in the hospital, in many cases. ? Pain medicine. ? Fluid through an IV tube. ? Placing a tube in the stomach to take out the stomach contents. This also helps you stop vomiting. ? Not eating until you vomit less. ? Antibiotic medicines, if you have an infection. ? Steroid medicines, if your problem is caused by attacks on your body's own tissues by your defense system. ? Surgery, if your problem is caused by gallstones or other blockage. ? Treating other health problems that may be the cause. Follow these instructions at home: Medicines ? Take kqgg-oif-dodyjdn and prescription medicines only as told by your doctor. ? If you were prescribed an antibiotic medicine, take it as told by your doctor. Do not stop taking it even if you start to feel better. ? If told, take steps to prevent problems with pooping (constipation). You may need to: ? Take medicines. You will be told what medicines to take. ? Eat foods that are high in fiber. These include beans, whole grains, and fresh fruits and vegetables. ? Limit foods that are high in fat and sugar. These include fried or sweet foods. ? Ask your doctor if you should avoid driving or using machines while you are taking your medicine. Eating and drinking ? Follow instructions from your doctor about what to eat and drink. You may need to: ? Avoid alcohol. ? Eat foods that do not have a lot of fat in them. ? Eat small meals often. Do not eat big meals. ? Drink enough fluid to keep your pee (urine) pale yellow. ? Do not drink alcohol if it caused your condition. General instructions ? Do not smoke or use any products that contain nicotine or tobacco. If you need help quitting, ask your doctor. ? Get plenty of rest. ? Check your blood sugar at home if your doctor tells you to. ? Keep all follow-up visits. Contact a doctor if: ? You do not get better as fast as expected. ? Your symptoms get worse. ? You have new symptoms. ? You have pain or weakness that lasts a long time. ? You keep feeling like you may vomit. ? You get better and then pain comes back. ? You have a fever. Get help right away if: ? You vomit every time you eat or drink. ? Your pain gets very bad. ? Your skin or the white parts of your eyes turn yellow. ? You have sudden swelling in your belly. ? You feel dizzy or you faint. ? Your blood sugar is high (over 300 mg/dL). ? You vomit blood. These symptoms may be an emergency. Do not wait to see if the symptoms will go away. Get help right away. Call 911. Summary ? Acute pancreatitis happens when there is sudden swelling and irritation of the pancreas. ? This condition is often caused by heavy alcohol use, drug use, or gallstones. ? You will likely have to stay in the hospital for treatment. This information is not intended to replace advice given to you by your health care provider. Make sure you discuss any questions you have with your health care provider. Document Revised: 06/10/2022 Document Reviewed: 06/10/2022 [employer]-Bot Patient Education ? 2022 [employer]. Normal [facility] ED Patient Summaryon 024 ED Patient Summary (Inserted Image. Nida ble to display) [address] [address] Patient Discharge Instructions Person Information Name: ROSE MARY SCHNEIDER Age: 18 Years Arrival Date: 01/13/2024 18:21:08 Discharge Diagnosis: Acute pancreatitis; Mild nausea Primary Care Physician: Claudia Ellington MD Provider Information Primary Provider: Dokken DO, Kaylinn A Advanced High Lift Driver:Mirella Camilo PA-C The exam and treatment you received in the Emergency Department were for an urgent problem and are not intended as complete care. It is important that you follow up with a doctor, nurse practitioner, or physician?s dental assistant teacher for ongoing care. If your symptoms become worse or you do not improve as expected and you are unable to reach your usual health care provider, you should return to the Emergency Department. We are available 24 hours a day. 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 Patient Education Materials: Acute Pancreatitis, Qecs-rk-Hxcq A MESSAGE TO ALL PATIENTS REGARDING OPIOIDS PRESCRIPTION OPIOIDS: WHAT YOU NEED TO KNOW Prescription opioids can be used to help relieve rcckyywx-cd-qsjxfo pain and are often prescribed following a surgery or injury, or for certain health conditions. These medications can be an important part of the treatment but also come with serious risks. It is important to work with your healthcare provider to make sure you are getting the safest, most effective care. WHAT ARE THE RISKS AND SIDE EFFECTS OF OPIOID USE? Prescription opioids carry serious risks of addiction and overdose, especially with prolonged use. An opioid overdose, often marked by slowed breathing, can cause sudden . The use of prescription opioids can have a number of side effects as well, even when taken as directed: ? Tolerance?meaning you might need to take more of the medication for the same pain relief ? Physical dependence?meaning you have symptoms of withdrawal when a medication is stopped ? Increased sensitivity to pain ? Constipation ? Nausea, vomiting, and dry mouth ? Sleepiness and dizziness ? Confusion ? Depression ? Low levels of testosterone that can result in lower sex drive, energy, and strength ? Itching and sweating RISKS ARE GREATER WITH: ? History of drug misuse, substance use disorder, or overdose ? Mental health conditions (such as depression or anxiety) ? Sleep apnea ? Older age (65 years and older) ? Avoid alcohol while taking prescription opioids. Also, unless specifically advised by your health care provider, medications to avoid include: ? Benzodiazepines (such as Xanax or Valium) ? Muscle relaxants (such as Soma or Flexeril) ? Hypnotics (such as Ambien or Lunesta) ? Other prescription opioids KNOW YOUR OPTIONS Talk to your health care provider about ways to manage your pain that don?t involve prescription opioids. Some of these options may actually work better and have fewer risks and side effects. Options may include: ? Pain relievers such as acetaminophen, ibuprofen, and naproxen ? Some medication that are also used for depression or seizures ? Physical therapy and exercise ? Cognitive behavioral therapy, a psychological, goal-directed approach, in which patients learn how to modify physical, behavioral, and emotional triggers of pain and stress. IF YOU ARE PRESCRIBED OPIOIDS FOR PAIN: ? Never take opioids in greater amounts or more often than prescribed. ? Follow up with your primary health care provider. o Work together to create a plan on how to manage your pain. o Talk about ways to help manage your pain that don?t involve prescription opioids. o Talk about any and all concerns and side effects. ? Help prevent misuse and abuse o Never sell or share prescription opioids. o Never use another person?s prescription opioids. ? Store prescription opioids in a secure place and out of reach of others (this may include visitors, children, friends, and family). ? Safely dispose of unused prescription opioids: Find your community drug take-back program or your pharmacy mail-back program, or flush them down the toilet, following guidance from the Food and Drug Administration (www.fda.gov/Drugs/Resour cesForYou). ? Visit www.ShoutWire (more content not included)... Normal [facility] HEMATOLOGYOrdered By: SYSTEM SYSTEM on 01-13-2024 Basophils/100 WBC (Bld) 0.6 % Normal 0.0 - 2.0 % Remisol Heme Basophils/Leukocytes Auto (Bld) [Pure # fraction] 0.0 E9/L Normal 0.0 - 0.2 E9/L Remisol Heme Eosinophils (Bld) [#/Vol] 0.2 E9/L Normal 0.0 - 0.5 E9/L Remisol Heme Eosinophils/100 WBC (Bld) 2.6 % Normal 0.0 - 8.0 % Remisol Heme Erythrocyte distribution width (RBC) [Ratio] 13.8 % Normal 10.9 - 14.2 % Remisol Heme Hematocrit (Bld) [Volume fraction] 35.6 % Normal 34.0 - 46.0 % Remisol Heme Hemoglobin (Bld) [Mass/Vol] 11.8 g/dL Low 12.0 - 16.0 gm/dL Remisol Heme Lymphocytes (Bld) [#/Vol] 2.9 E9/L Normal 1.0 - 4.0 E9/L Remisol Heme Lymphocytes/100 WBC (Bld) 40.4 % Normal 14.0 - 50.0 % Remisol Heme MCH (RBC) [Entitic mass] 28.0 pg Normal 27.0 - 34.0 pg Remisol Heme MCHC (RBC) [Mass/Vol] 33.1 g/dL Normal 31.4 - 36.0 gm/dL Remisol Heme MCV (RBC) [Entitic vol] 84.7 fL Normal 80.0 - 100.0 fL Remisol Heme Monocytes (Bld) [#/Vol] 0.5 E9/L Normal 0.2 - 1.0 E9/L Remisol Heme Monocytes/100 WBC (Bld) 7.4 % Normal 4.0 - 14.0 % Remisol Heme Neutrophils (Bld) [#/Vol] 3.5 E9/L Normal 2.0 - 7.5 E9/L Remisol Heme Neutrophils/100 WBC (Bld) 49.0 % Normal 36.0 - 75.0 % Remisol Heme Platelet mean volume (Bld) [Entitic vol] 8.1 fL Normal 6.4 - 10.8 fL Remisol Heme Platelets (Bld) [#/Vol] 394.0 E9/L Normal 150.0 - 500.0 E9/L Remisol Heme RBC (Bld) [#/Vol] 4.2 E12/L Low 4.3 - 5.9 E12/L Remisol Heme WBC corrected for nucl RBC Auto (Bld) [#/Vol] 7.1 E9/L Normal 4.0 - 11.0 E9/L Remisol Heme Hep Func Panelon 01-13-2024 Albumin [Mass/Vol] 3.4 g/dL Normal 3.3-5.0 [facility] Comment on above: Performed By: #### 2 [id number] #### [facility] [address] [place] [address] Albumin/Globulin (S) [Mass conc ratio] 1.0 Low 1.1-2.2 [facility] Comment on above: Performed By: #### 2 [id number] #### [facility] [address] [place] [address] ALP [Catalytic activity/Vol] 45 Int._Unit/L Normal 21-98 [facility] Comment on above: Performed By: #### 2 [id number] #### [facility] [address] [place] [address] ALT No additional P-5'-P [Catalytic activity/Vol] 11 Int._Unit/L Normal 6-46 [facility] Comment on above: Performed By: #### 2 [id number] #### [facility] [address] [place] [address] AST [Catalytic activity/Vol] 12 Int._Unit/L Normal 5-43 [facility] Comment on above: Performed By: #### 2 [id number] #### [facility] [address] [place] [address] Bilirubin [Mass/Vol] 0.3 mg/dL Normal 0.0-1.1 [facility] Comment on above: Performed By: #### 2 [id number] #### [facility] [address] [place] [address] Bilirubin.direct [Mass/Vol] 0.0 mg/dL Normal 0.0-0.4 [facility] Comment on above: Performed By: #### 2 [id number] #### [facility] [address] [place] [address] Bilirubin.indirect [Mass or moles/Vol] 0.3 mg/dL Normal 0.1-0.9 [facility] Comment on above: Performed By: #### 2 [id number] #### [facility] [address] [place] [address] Globulin (S) [Mass/Vol] 3.3 g/dL Normal 1.4-4.0 [facility] Comment on above: Performed By: #### 2 [id number] #### [facility] [address] [place] [address] Protein [Mass/Vol] 6.7 g/dL Normal 6.0-7.8 [facility] Comment on above: Performed By: #### 2 [id number] #### [facility] [address] [place] [address] Lipase Levelon 01-13-2024 Lipase [Catalytic activity/Vol] 144 U/L High 13-58 [facility] Comment on above: Performed By: #### 2 [id number] #### [facility] [address] [place] [address] RAD - Preliminary Cat Scan R eporton 01-13-2024 RAD - Preliminary Cat Scan Report [id number] Normal [facility] UA with Cult Rflxon 01-13-20 24 Bilirubin Ql (U) Negative Normal Negative [facility] Comment on above: Performed By: #### 4 [id number] #### [facility] [address] [place] [address] Clarity (U) Clear Normal Clear [facility] Comment on above: Performed By: #### 4 [id number] #### [facility] [address] [place] [address] Color (U) Colorless Abnormal Yellow [facility] Comment on above: Result Comment: Micr oscopic readings are only performed on those samples that meet specific criteria set forth by [facility]. Performed By: #### 4 [id number] #### [facility] [address] [place] [address] Epithelial cells.squamous Auto (Urine sed) [#/Area] 0-2 Invalid Interpretation Code [facility] Comment on above: Performed By: #### 4 [id number] #### [facility] [address] [place] [address] Glucose Ql (U) Negative Normal Negative [facility] Comment on above: Performed By: #### 4 [id number] #### [facility] [address] [place] [address] Hemoglobin Auto test strip (U) [Mass/Vol] 1+ mg/dL Abnormal Negative [facility] Comment on above: Performed By: #### 4 [id number] #### [facility] [address] [place] [address] Ketones Auto test strip Ql (U) Negative Normal Negative [facility] Comment on above: Performed By: #### 4 [id number] #### [facility] [address] [place] [address] Leukocyte esterase Auto test strip Ql (U) Negative Normal Negative [facility] Comment on above: Performed By: #### 4 [id number] #### [facility] [address] [place] [address] Mucus Auto Ql (U) Negative Normal Negative [facility] Comment on above: Performed By: #### 4 [id number] #### [facility] [address] [place] [address] Nitrite Auto test strip Ql (U) Negative Normal Negative [facility] Comment on above: Performed By: #### 4 [id number] #### [facility] [address] [place] [address] pH (U) 6.5 [pH] Invalid Interpretation Code 5.0-9.0 [facility] Comment on above: Performed By: #### 4 [id number] #### [facility] [address] [place] [address] Protein Ql (U) Negative Normal Negative [facility] Comment on above: Performed By: #### 4 [id number] #### [facility] [address] [place] [address] RBC Ql (U) 0-3 Normal 0-3 [facility] Comment on above: Performed By: #### 4 [id number] #### [facility] [address] [place] [address] Specific gravity (U) [Rel density] 1.024 Invalid Interpretation Code 1.005-1.030 [facility] Comment on above: Performed By: #### 4 [id number] #### [facility] [address] [place] [address] Urobilinogen (U) [Mass/Vol] Negative Normal Negative [facility] Comment on above: Performed By: #### 4 [id number] #### [facility] [address] [place] [address] WBC Auto (Urine sed) [#/Area] 0-5 Normal 0-5 [facility] Comment on above: Performed By: #### 4 [id number] #### [facility] [address] [place] [address] Type of Urine collection method Clean Catch Normal [facility] Comment on above: Performed By: #### 4 [id number] #### [facility] [address] [place] [address] URINALYSISOrdered By: SYSTEM SYSTEM on 01-13-2024 Bilirubin Ql (U) Negative Normal Negativemg/ dL [facility] UA Auto SS Clarity (U) Clear (01/13/24 7:41 PM) Normal Clear [facility] UA Auto SS Color (U) Colorless 1 *ABN* (01/13/24 7:41 PM) Invalid Interpretation Code Yellow [facility] UA Auto SS Comment on above: Interpretive Data: M icroscopic readings are only performed on those samples that meet specific criteria set forth by [facility]. Epithelial cells.squamous Auto (Urine sed) [#/Area] 0-2 graded/HPF Invalid Interpretation Code [facility] UA Auto SS Glucose Ql (U) Negative Normal Negativemg/ dL [facility] UA Auto SS Hemoglobin Auto test strip (U) [Mass/Vol] 1+ mg/dL Invalid Interpretation Code Negativemg/ dL [facility] UA Auto SS Ketones Auto test strip Ql (U) Negative Normal Negativemg/ dL [facility] UA Auto SS Leukocyte esterase Auto test strip Ql (U) Negative Normal NegativeLeu /uL [facility] UA Auto SS Mucus Auto Ql (U) Negative Normal Negativegr a ded/LPF [facility] UA Auto SS Nitrite Auto test strip Ql (U) Negative Normal Negativemg/ dL [facility] UA Auto SS pH (U) 6.5 *NA* (01/13/24 7:41 PM) Invalid Interpretation Code 5.0 - 9.0 [facility] UA Auto SS Protein Ql (U) Negative Normal Negativemg/ dL [facility] UA Auto SS RBC Ql (U) 0-3 graded/HPF Normal 0-3graded/H PF [facility] UA Auto SS Specific gravity (U) [Rel density] 1.024 *NA* (01/13/24 7:41 PM) Invalid Interpretation Code 1.005 - 1.030 [facility] UA Auto SS Urobilinogen (U) [Mass/Vol] Negative Normal Negativemg/ dL [facility] UA Auto SS WBC Auto (Urine sed) [#/Area] 0-5 graded/HPF Normal 0-5graded/H PF [facility] UA Auto SS URINALYSISOrdered By: Mirella Camilo on 01-13-2024 UA Spec Desc Clean Catch (01/13/24 7:41 PM) Normal [facility] UA Auto SS Work Phone: eGFRon 01-13-2024 eGFR 109 mL/min/1.73 m2 Normal >=59 [facility] Comment on above: Order Comment: Order added by Discern Expert. Performed By: #### 1 [id number] #### [facility] [address] [place] [address] CBC w/ Auto Diffon 4 Basophils/100 WBC (Bld) 0.4 % Normal 0.0-2.0 [facility] Comment on above: Performed By: #### 2 [id number] #### [facility] [address] [place] [address] Basophils/Leukocytes Auto (Bld) [Pure # fraction] 0.0 E9/L Normal 0.0-0.2 [facility] Comment on above: Performed By: #### 2 [id number] #### [facility] [address] [place] [address] Eosinophils (Bld) [#/Vol] 0.2 E9/L Normal 0.0-0.5 [facility] Comment on above: Performed By: #### 2 [id number] #### [facility] [address] [place] [address] Eosinophils/100 WBC (Bld) 2.3 % Normal 0.0-8.0 [facility] Comment on above: Performed By: #### 2 [id number] #### [facility] [address] [place] [address] Erythrocyte distribution width (RBC) [Ratio] 13.9 % Normal 10.9-14.2 [facility] Comment on above: Performed By: #### 2 [id number] #### [facility] [address] [place] [address] Hematocrit (Bld) [Volume fraction] 37.3 % Normal 34.0-46.0 [facility] Comment on above: Performed By: #### 2 [id number] #### [facility] [address] [place] [address] Hemoglobin (Bld) [Mass/Vol] 12.7 g/dL Normal 12.0-16.0 [facility] Comment on above: Performed By: #### 2 [id number] #### [facility] [address] [place] [address] Lymphocytes (Bld) [#/Vol] 2.3 E9/L Normal 1.0-4.0 [facility] Comment on above: Performed By: #### 2 [id number] #### [facility] [address] [place] [address] Lymphocytes/100 WBC (Bld) 33.8 % Normal 14.0-50.0 [facility] Comment on above: Performed By: #### 2 [id number] #### [facility] [address] [place] [address] MCH (RBC) [Entitic mass] 28.5 pg Normal 27.0-34.0 [facility] Comment on above: Performed By: #### 2 [id number] #### [facility] [address] [place] [address] MCHC (RBC) [Mass/Vol] 34.0 g/dL Normal 31.4-36.0 [facility] Comment on above: Performed By: #### 2 [id number] #### [facility] [address] [place] [address] MCV (RBC) [Entitic vol] 83.9 fL Normal 80.0-100.0 [facility] Comment on above: Performed By: #### 2 [id number] #### [facility] [address] [place] [address] Monocytes (Bld) [#/Vol] 0.6 E9/L Normal 0.2-1.0 [facility] Comment on above: Performed By: #### 2 [id number] #### [facility] [address] [place] [address] Neutrophils (Bld) [#/Vol] 3.8 E9/L Normal 2.0-7.5 [facility] Comment on above: Performed By: #### 2 [id number] #### [facility] [address] [place] [address] Neutrophils/100 WBC (Bld) 55.0 % Normal 36.0-75.0 [facility] Comment on above: Performed By: #### 2 [id number] #### [facility] [address] [place] [address] Platelet 454.0 E9/L Normal 150.0-500.0 [facility] Comment on above: Performed By: #### 2 [id number] #### [facility] [address] [place] [address] Platelet mean volume (Bld) [Entitic vol] 7.5 fL Normal 6.4-10.8 [facility] Comment on above: Performed By: #### 2 [id number] #### [facility] [address] [place] [address] RBC (Bld) [#/Vol] 4.4 E12/L Normal 4.3-5.9 [facility] Comment on above: Performed By: #### 2 [id number] #### [facility] [address] [place] [address] WBC corrected for nucl RBC Auto (Bld) [#/Vol] 6.9 E9/L Normal 4.0-11.0 [facility] Comment on above: Performed By: #### 2 [id number] #### [facility] [address] [place] [address] CHEMISTRYOrdered By: SYSTEM SYSTEM on 01-12-2024 Albumin [Mass/Vol] 3.7 g/dL Normal 3.3 - 5.0 gm/dL Remisol Chem Albumin/Globulin [Mass ratio] 1.0 {ratio} Low 1.1 - 2.2 Rem[facility] Chem ALP [Catalytic activity/Vol] 49 [iU]/d Normal 21 - 98 Int._Unit/L Remisol Chem ALT No additional P-5'-P [Catalytic activity/Vol] 12 [iU]/d Normal 6 - 46 Int._Unit/L Remisol Chem Anion gap [Moles/Vol] 9 mmol/L Normal 6 - 16 mEq/L Rem[facility] Chem AST [Catalytic activity/Vol] 12 [iU]/d Normal 5 - 43 Int._Unit/L Remisol Chem Bilirubin [Mass/Vol] 0.3 mg/dL Normal 0.0 - 1 .1 mg/dL [facility] Chem Calcium [Mass/Vol] 9.2 mg/dL Normal 8.9 - 11. 1 mg/dL [facility] Chem Chloride [Moles/Vol] 105 mmol/L Normal 101 - 1 11 mmol/L [facility] Chem CO2 [Moles/Vol] 27 mmol/L Normal 21 - 31 mmol/L [facility] Chem Creatinine [Mass/Vol] 0.7 mg/dL Normal 0.5 - 1.3 mg/dL [facility] Chem eGFR 128 mL/min/1.73 m2 Normal >=59mL/mi n/ 1.73 m2 [facility] Chem Globulin (S) [Mass/Vol] 3.7 g/dL Normal 1.4 - 4.0 gm/dL [facility] Chem Glucose [Mass/Vol] 89 mg/dL Normal 55 - 199 mg/dL [facility] Chem Lipase [Catalytic activity/Vol] 158 U/L High 13 - 58 unit/L [facility] Chem Potassium [Moles/Vol] 3.7 mmol/L Normal 3.5 - 5.3 mmol/L Rem[facility] Chem Protein [Mass/Vol] 7.4 g/dL Normal 6.0 - 7.8 gm/dL [facility] Chem Sodium [Moles/Vol] 137 mmol/L Normal 135 - 145 mmol/L [facility] Chem Urea nitrogen [Mass/Vol] 8 mg/dL Normal 5 - 21 mg/dL [facility] Chem Urea nitrogen/Creatinine [Mass ratio] 11 mg/mg Normal 10 - 20 [facility] Chem CMPon 01-12-2024 Albumin [Mass/Vol] 3.7 g/dL Normal 3.3-5.0 [facility] Comment on above: Performed By: #### 2 [id number] #### [facility] [address] [place] [address] Albumin/Globulin (S) [Mass conc ratio] 1.0 Low 1.1-2.2 [facility] Comment on above: Performed By: #### 2 [id number] #### [facility] [address] [place] [address] ALP [Catalytic activity/Vol] 49 Int._Unit/L Normal 21-98 [facility] Comment on above: Performed By: #### 2 [id number] #### [facility] [address] [place] [address] ALT No additional P-5'-P [Catalytic activity/Vol] 12 Int._Unit/L Normal 6-46 [facility] Comment on above: Performed By: #### 2 [id number] #### [facility] [address] [place] [address] Anion gap [Moles/Vol] 9 mmol/L Normal 6-16 [facility] Comment on above: Performed By: #### 2 [id number] #### [facility] [address] [place] [address] AST [Catalytic activity/Vol] 12 Int._Unit/L Normal 5-43 [facility] Comment on above: Performed By: #### 2 [id number] #### [facility] [address] [place] [address] Bilirubin [Mass/Vol] 0.3 mg/dL Normal 0.0-1.1 [facility] Comment on above: Performed By: #### 2 [id number] #### [facility] [address] [place] [address] Calcium [Mass/Vol] 9.2 mg/dL Normal 8.9-11.1 [facility] Comment on above: Performed By: #### 2 [id number] #### [facility] [address] [place] [address] Chloride [Moles/Vol] 105 mmol/L Normal 101-111 [facility] Comment on above: Performed By: #### 2 [id number] #### [facility] [address] [place] [address] CO2 [Moles/Vol] 27 mmol/L Normal 21-31 [facility] Comment on above: Performed By: #### 2 [id number] #### [facility] [address] [place] [address] Creatinine [Mass/Vol] 0.7 mg/dL Normal 0.5-1.3 [facility] Comment on above: Performed By: #### 2 [id number] #### [facility] [address] [place] [address] Globulin (S) [Mass/Vol] 3.7 g/dL Normal 1.4-4.0 [facility] Comment on above: Performed By: #### 2 [id number] #### [facility] [address] [place] [address] Glucose [Mass/Vol] 89 mg/dL Normal 55-199 [facility] Comment on above: Performed By: #### 2 [id number] #### [facility] [address] [place] [address] Potassium [Moles/Vol] 3.7 mmol/L Normal 3.5-5.3 [facility] Comment on above: Performed By: #### 2 [id number] #### [facility] [address] [place] [address] Protein [Mass/Vol] 7.4 g/dL Normal 6.0-7.8 [facility] Comment on above: Performed By: #### 2 [id number] #### [facility] [address] [place] [address] Sodium [Moles/Vol] 137 mmol/L Normal 135-145 [facility] Comment on above: Performed By: #### 2 482109 #### [facility] [address] [place] [address] Urea nitrogen [Mass/Vol] 8 mg/dL Normal 5-21 [facility] Comment on above: Performed By: #### 2 [id number] #### [facility] [address] [place] [address] Urea nitrogen/Creatinine [Mass ratio] 11 No Units Normal 10-20 [facility] Comment on above: Performed By: #### 2 [id number] #### [facility] [address] [place] [address] Consent for Treatmenton 01-01 Consent for Treatment [id number] Normal [facility] Discharge Instructionson Discharge Instructions [id number]#[id number] Normal [facility] ED Clinical Summaryon 2023 ED Clinical Summary (Inserted Image. Nida ble to display) [address] [address] ED Clinical Summary Person Information Name: ROSE MARY SCHNEIDER Kimberly/New_Lenny Age: 18 Years : 2005 Sex: Female Language: Honduran PCP: Claudia Ellington MD Marital Status: Single Phone: [phone] Visit Id: Visit Reason: Abdominal pain; ABDOMINAL PAIN Speciality: Acuity: 3 Enc Type: Emergency Med Service: Emergency Arrival: 01/12/2024 14:42:50 Discharge: 01/12/2024 17:22:08 LOS: 000 02:40 Checkin: 01/12/2024 14:42:50 Checkout: 01/12/2024 17:22:08 Dispo Type: Home (Routine DC) EVENTS: Event Name Event Status Request Date/Time Start Date/Time Complete Date/Time Arrive Complete 01/12/2024 14:42:50 01/12/2024 14:42:50 01/12/2024 14:42:50 Document Home Meds Request 01/12/2024 14:42:50 Triage Complete 01/12/2024 14:42:50 01/12/2024 15:00:25 01/12/2024 15:00:25 Dr Exam Complete 01/12/2024 14:53:27 01/12/2024 14:53:27 01/12/2024 14:53:27 Registration Complete 01/12/2024 14:53:27 01/12/2024 15:25:40 01/12/2024 15:41:07 Pending Labs Complete 01/12/2024 15:15:02 01/12/2024 16:50:33 Lab Complete 01/12/2024 15:15:02 01/12/2024 16:43:04 Urine Collect Complete 01/12/2024 15:15:02 01/12/2024 16:43:04 Bed Assign Complete 01/12/2024 15:25:40 01/12/2024 15:25:40 01/12/2024 15:25:40 RN Exam Complete 01/12/2024 15:25:40 01/12/2024 16:59:36 01/12/2024 16:59:36 Dr Exam Complete 01/12/2024 15:32:09 01/12/2024 15:32:09 01/12/2024 15:32:09 Pending Labs Complete 01/12/2024 15:39:55 01/12/2024 16:10:05 Lab Complete 01/12/2024 15:39:55 01/12/2024 16:10:05 Meds Admin Request 01/12/2024 15:39:55 Reg Complete Request 01/12/2024 15:41:07 Reg Bed Request Complete 01/12/2024 15:41:07 01/12/2024 15:41:07 01/12/2024 15:41:07 Pending Labs Complete 01/12/2024 15:52:15 01/12/2024 15:52:15 01/12/2024 16:10:05 Lab Complete 01/12/2024 15:52:15 01/12/2024 15:52:15 01/12/2024 16:10:05 Discharge Complete 01/12/2024 17:06:50 01/12/2024 17:22:14 01/12/2024 17:22:14 Transfer Complete 01/12/2024 17:22:14 01/12/2024 17:22:14 01/12/2024 17:22:14 ADDRESS: [address] [place] [id number] PHYS DOC NOTES: MEDICAL INFORMATION: Prescriptions Given: New Medications [facility]/pharmacy #[id number], [address], [place] [id number], [phone] ondansetron (Zofran ODT 4 mg Tab-Dis) 1 Tablets By Mouth every 8 hours as needed Nausea/Vomiting. Refills: 0. tramadol (traMADOL 50 mg Tab) 1-2 tabs By Mouth every 6 hours as needed Pain. Refills: 0. Medications to Continue with No Changes Other Medications APAP/butalbital/caffeine (APAP/butalbital/caffeine 325 mg-50 mg-40 mg Tab) 1 Tablets By Mouth every 4 hours as needed for headache. Refills: 0. cetirizine (cetirizine 5 mg oral tablet) 2 Tablets By Mouth every day. clonidine (cloNIDine 0.1 mg tab) 1 Tablets By Mouth every day. ethinyl estradiol-norethindrone (Junel Fe 08/22 oral tablet) 28 EA, TAKE 1 TABLET BY MOUTH EVERY DAY. fluoxetine (FLUoxetine 40 mg Cap) lamotrigine (Lamictal 25 mg Tab) 1 Tablets By Mouth every day. levetiracetam (Keppra 500 mg Tab) 1 Tablets By Mouth 2 times a day. Refills: 0. lurasidone (lurasidone 60 mg oral tablet) 30 EA, TAKE 1 TABLET BY ORAL ROUTE 1 TIME PER DAY WITH FOOD (AT LEAST 350 CALORIES). melatonin-pyridoxine (melatonin-pyridoxine 3 mg-10 mg oral tablet, extended release) 30 EA, TAKE 1 TABLET BY ORAL ROUTE PER AT BEDTIME NEEDED FOR INSOMNIA. pantoprazole (Protonix 40 mg tablet) PATIENT EDUCATION INFORMATION: Instructions: Full Liquid Diet; Nausea, Adult, Outr-kf-Vwxm; Abdominal Pain, Adult, Easx-fw-Mcyo Follow up: With: Address: When: Rakel MARCANO, Claudia [facility] [place] [address] In 3 days 01/15/2024 DIAGNOSIS: 1:Generalized abdominal pain; 2:Nausea; 3:Elevated lipase Normal [facility] ED Note-Nursingon 01-12-2024 ED Note-Nursing MARIE Morales at [facility] to discuss poc. Normal [facility] ED Patient Education Noteon 01-12-2024 ED Patient Education Note Gastroenterology Full Liquid Diet A full liquid diet refers to fluids and foods that are liquid, or will become liquid, at room temperature. This diet should only be used for a short period of time to help you recover from illness or surgery. Your health care provider or dietitian will help determine when it is safe to eat regular foods again. What are tips for following this plan? Reading food labels ? Check food labels of nutrition shakes for the amount of protein. Look for nutrition shakes that have at least 8?10 grams of protein in each serving. ? Choose drinks, such as milks and juices, that are fortified or enriched. This means that vitamins and minerals have been added. Shopping ? Buy pre-made nutrition shakes to keep on hand. ? To vary your choices, buy different flavors of milks and shakes. Meal planning ? Choose flavors and foods that you enjoy. ? To make sure you get enough energy and calories from food: ? Have three full liquid meals each day. Have a liquid snack between each meal. ? Drink 6?8 oz (177?237 mL) of a nutritional supplement shake with meals or as snacks. ? Add protein powder, powdered milk, milk, or yogurt to shakes to increase the amount of protein. ? Drink at least one serving a day of citrus fruit juice or fruit juice that has vitamin C added. General guidelines ? Before starting the full liquid diet, check with your health care provider to know what foods you should avoid. These may include full-fat or high-fiber liquids. ? You may have any liquid or food that becomes a liquid at room temperature. The food is considered a liquid if it can be poured off a spoon at room temperature. ? Do not drink alcohol unless approved by your health care provider. ? This diet gives you most of the nutrients that you need for energy, but you may not get enough of certain vitamins, minerals, and fiber. Make sure to talk to your health care provider or dietitian about: ? How many calories you need to eat each day. ? How much fluid you should have each day. ? Taking a multivitamin or a nutritional supplement. What foods should I eat? Fruits Fruit juice without pulp. Strained fruit pur?es (seeds and skins removed). Vegetables Pulp-free tomato or vegetable juice. Vegetables pur?ed in soup. Grains Thin, hot cereal, such as farina. Soft-cooked pasta or rice pur?ed in soup. Meats and other proteins Beef, chicken, and fish broths. Powdered protein supplements. Dairy Milk and milk-based beverages, including milk shakes and instant breakfast mixes. Smooth yogurt. Pur?ed cottage cheese. Fats and oils Melted margarine and butter. Cream. Canola, almond, avocado, corn, grapeseed, sunflower, and sesame oils. Gravy. Beverages Water. Coffee and tea (caffeinated or decaffeinated). Logan. Liquid nutritional supplements. Soft drinks. Nondairy milks, such as almond, coconut, rice, or soy milk. Sweets and desserts Custard. Pudding. Flavored gelatin. Smooth ice cream (without nuts or candy pieces). Sherbet. Frozen ice pops. [place] ice. Pudding pops. Seasonings and condiments Salt and pepper. Spices. Vinegar. Ketchup. Yellow mustard. Smooth sauces, such as Hollandaise, cheese sauce, or white sauce. Soy sauce. Syrup. Honey. Jelly (without fruit pieces). Other foods Logan powder. Cream soups. Strained soups. The items listed above may not be a complete list of foods and beverages you can eat. Contact a dietitian for more information. What foods should I avoid? Fruits All whole fresh, frozen, or canned fruits. Vegetables All whole fresh, frozen, or canned vegetables. Grains Whole grains. Pasta. Rice. Cold cereal. Bread. Crackers. Meats and other proteins All cuts of meat, poultry, and fish. Eggs. Tofu and soy protein. Nuts and nut butters. Precooked or cured meat, such as sausages or meat loaves. Dairy Hard cheese. Yogurt with fruit chunks. Fats and oils Coconut oil. Palm oil. Lard. Cold butter. Sweets and desserts Ice cream or other frozen desserts that contain solids, such as nuts, chocolate chips, and pieces of cookies. Cakes. Cookies. Candy. Seasonings and condiments Stone-ground mustard. Other foods Soups with chunks or pieces. The items listed above may not be a complete list of foods and beverages you should avoid. Contact a dietitian for more information. Summary ? A full liquid diet refers to fluids and foods that are liquid or will become liquid at room temperature. ? This diet should only be used for a short period of time to help you recover from illness or surgery. Ask your health care provider or dietitian when it is safe for you to eat regular foods. ? To make sure you get enough calories and nutrients, eat three meals each day with snacks in between. Drink pre-made nutritional supplement shakes or add protein powder to homemade shakes. Talk to your health care provider about taking a vitamin and mineral supplement. This infor (more content not included)... Normal [facility] ED Patient Education Note Gastroenterology Nausea, Adult Nausea is feeling like you may vomit. Feeling like you may vomit is usually not serious, but it may be an early sign of a more serious medical problem. Vomiting is when stomach contents forcefully come out of your mouth. If you vomit, or if you are not able to drink enough fluids, you may not have enough water in your body (get dehydrated). If you do not have enough water in your body, you may: ? Feel tired. ? Feel thirsty. ? Have a dry mouth. ? Have cracked lips. ? Pee (urinate) less often. Older adults and people who have other diseases or a weak body defense system (immune system) have a higher risk of not having enough water in the body. The main goals of treating this condition are: ? To relieve your nausea. ? To ensure your nausea occurs less often. ? To prevent vomiting and losing too much fluid. Follow these instructions at home: Watch your symptoms for any changes. Tell your doctor about them. Eating and drinking ? Take an ORS (oral rehydration solution). This is a drink that is sold at pharmacies and stores. ? Drink clear fluids in small amounts as you are able. These include: ? Water. ? Ice chips. ? Fruit juice that has water added (diluted fruit juice). ? Low-calorie sports drinks. ? Eat bland, ties-sj-cuszrm foods in small amounts as you are able, such as: ? Bananas. ? Applesauce. ? Rice. ? Low-fat (lean) meats. ? Neopit. ? Crackers. ? Avoid drinking fluids that have a lot of sugar or caffeine in them. This includes energy drinks, sports drinks, and soda. ? Avoid alcohol. ? Avoid spicy or fatty foods. General instructions ? Take scyo-xkg-wpvtuzf and prescription medicines only as told by your doctor. ? Rest at home while you get better. ? Drink enough fluid to keep your pee (urine) pale yellow. ? Take slow and deep breaths when you feel like you may vomit. ? Avoid food or things that have strong smells. ? Wash your hands often with soap and water for at least 20 seconds. If you cannot use soap and water, use hand carpet installation specialist. ? Make sure that everyone in your home washes their hands well and often. ? Keep all follow-up visits. Contact a doctor if: ? You feel worse. ? You feel like you may vomit and this lasts for more than 2 days. ? You vomit. ? You are not able to drink fluids without vomiting. ? You have new symptoms. ? You have a fever. ? You have a headache. ? You have muscle cramps. ? You have a rash. ? You have pain while peeing. ? You feel light-headed or dizzy. Get help right away if: ? You have pain in your chest, neck, arm, or jaw. ? You feel very weak or you faint. ? You have vomit that is bright red or looks like coffee grounds. ? You have bloody or black poop (stools) or poop that looks like tar. ? You have a very bad headache, a stiff neck, or both. ? You have very bad pain, cramping, or bloating in your belly (abdomen). ? You have trouble breathing or you are breathing very quickly. ? Your heart is beating very quickly. ? Your skin feels cold and clammy. ? You feel confused. ? You have signs of losing too much water in your body, such as: ? Dark pee, very little pee, or no pee. ? Cracked lips. ? Dry mouth. ? Sunken eyes. ? Sleepiness. ? Weakness. These symptoms may be an emergency. Get help right away. Call 911. ? Do not wait to see if the symptoms will go away. ? Do not drive yourself to the hospital. Summary ? Nausea is feeling like you are about vomit. ? If you vomit, or if you are not able to drink enough fluids, you may not have enough water in your body (get dehydrated). ? Eat and drink what your doctor tells you. Take jgnf-syk-hbgwchz and prescription medicines only as told by your doctor. ? Contact a doctor right away if your symptoms get worse or you have new symptoms. ? Keep all follow-up visits. This information is not intended to replace advice given to you by your health care provider. Make sure you discuss any questions you have with your health care provider. Document Revised: 01/24/2022 Document Reviewed: 01/24/2022 [employer] Patient Education ? 2022 [employer] Abdominal Pain, Adult Many things can cause belly (abdominal) pain. Most times, belly pain is not dangerous. Many cases of belly pain can be watched and treated at home. Sometimes, though, belly pain is serious. Your doctor will try to find the cause of your belly pain. Follow these instructions at home: Medicines ? Take jvsv-rib-vmmeyxb and prescription medicines only as told by your doctor. ? Do not take medicines that help you poop (laxatives) unless told by your doctor. General instructions ? Watch your belly pain for any changes. ? Drink enough fluid to keep your pee (urine) pale yellow. ? Keep all follow-up visits as told by your doctor. This is important. Contact a doctor if: (more content not included)... Normal [facility] ED Patient Summaryon 024 ED Patient Summary (Inserted Image. Nida ble to display) [address] [address] Patient Discharge Instructions Person Information Name: ROSE MARY SCHNEIDER Age: 18 Years Arrival Date: 01/12/2024 14:42:50 Discharge Diagnosis: 1:Generalized abdominal pain; 2:Nausea; 3:Elevated lipase Primary Care Physician: Claudia Ellington MD Provider Information Primary Provider: Radha Whipple DO Advanced High Lift Driver:Liss [address] PA-C The exam and treatment you received in the Emergency Department were for an urgent problem and are not intended as complete care. It is important that you follow up with a doctor, nurse practitioner, or physician?s dental assistant teacher for ongoing care. If your symptoms become worse or you do not improve as expected and you are unable to reach your usual health care provider, you should return to the Emergency Department. We are available 24 hours a day. ROSE MARY SCHNEIDER has been given the following list of patient education materials, prescriptions and follow-up instructions: Follow-up Instructions: With: Address: When: Claudia Ellington MD [address] [place] [address] In 3 days 01/15/2024 In the event that this physician does not participate in your insurance network, please consult with your insurance company to find a nearby participating provider. Patient Education Materials: Full Liquid Diet; Nausea, Adult, Ohfm-tk-Thka; Abdominal Pain, Adult, Lpdp-aq-Hilo A MESSAGE TO ALL PATIENTS REGARDING OPIOIDS PRESCRIPTION OPIOIDS: WHAT YOU NEED TO KNOW Prescription opioids can be used to help relieve pgiywirt-tl-fkeywj pain and are often prescribed following a surgery or injury, or for certain health conditions. These medications can be an important part of the treatment but also come with serious risks. It is important to work with your healthcare provider to make sure you are getting the safest, most effective care. WHAT ARE THE RISKS AND SIDE EFFECTS OF OPIOID USE? Prescription opioids carry serious risks of addiction and overdose, especially with prolonged use. An opioid overdose, often marked by slowed breathing, can cause sudden . The use of prescription opioids can have a number of side effects as well, even when taken as directed: ? Tolerance?meaning you might need to take more of the medication for the same pain relief ? Physical dependence?meaning you have symptoms of withdrawal when a medication is stopped ? Increased sensitivity to pain ? Constipation ? Nausea, vomiting, and dry mouth ? Sleepiness and dizziness ? Confusion ? Depression ? Low levels of testosterone that can result in lower sex drive, energy, and strength ? Itching and sweating RISKS ARE GREATER WITH: ? History of drug misuse, substance use disorder, or overdose ? Mental health conditions (such as depression or anxiety) ? Sleep apnea ? Older age (65 years and older) ? Avoid alcohol while taking prescription opioids. Also, unless specifically advised by your health care provider, medications to avoid include: ? Benzodiazepines (such as Xanax or Valium) ? Muscle relaxants (such as Soma or Flexeril) ? Hypnotics (such as Ambien or Lunesta) ? Other prescription opioids KNOW YOUR OPTIONS Talk to your health care provider about ways to manage your pain that don?t involve prescription opioids. Some of these options may actually work better and have fewer risks and side effects. Options may include: ? Pain relievers such as acetaminophen, ibuprofen, and naproxen ? Some medication that are also used for depression or seizures ? Physical therapy and exercise ? Cognitive behavioral therapy, a psychological, goal-directed approach, in which patients learn how to modify physical, behavioral, and emotional triggers of pain and stress. IF YOU ARE PRESCRIBED OPIOIDS FOR PAIN: ? Never take opioids in greater amounts or more often than prescribed. ? Follow up with your primary health care provider. o Work together to create a plan on how to manage your pain. o Talk about ways to help manage your pain that don?t involve prescription opioids. o Talk about any and all concerns and side effects. ? Help prevent misuse and abuse o Never sell or share prescription opioids. o Never use another person?s prescription opioids. ? Store prescription opioids in a secure place and out of reach of others (this may include visitors, children, friends, and family). ? Safely dispose of unused prescription opioids: Find your community drug take-back program or your pharmacy mail-back program, or flush them down the toilet, following guidance from the Food and Drug Administration (www.fda.gov/Drugs/Resour cesForYou). ? Visit www.cdc.gov/drugoverdose to learn about the risks of opioids abuse and overdose. ? If you believe you may be struggling with addiction, tell your health care professiona (more content not included)... Normal [facility] HEMATOLOGYOrdered By: SYSTEM SYSTEM on 01-12-2024 Basophils/100 WBC (Bld) 0.4 % Normal 0.0 - 2.0 % Remisol Heme Basophils/Leukocytes Auto (Bld) [Pure # fraction] 0.0 E9/L Normal 0.0 - 0.2 E9/L Remisol Heme Eosinophils (Bld) [#/Vol] 0.2 E9/L Normal 0.0 - 0.5 E9/L Remisol Heme Eosinophils/100 WBC (Bld) 2.3 % Normal 0.0 - 8.0 % Remisol Heme Erythrocyte distribution width (RBC) [Ratio] 13.9 % Normal 10.9 - 14.2 % Remisol Heme Hematocrit (Bld) [Volume fraction] 37.3 % Normal 34.0 - 46.0 % Remisol Heme Hemoglobin (Bld) [Mass/Vol] 12.7 g/dL Normal 12.0 - 16.0 gm/dL Remisol Heme Lymphocytes (Bld) [#/Vol] 2.3 E9/L Normal 1.0 - 4.0 E9/L Remisol Heme Lymphocytes/100 WBC (Bld) 33.8 % Normal 14.0 - 50.0 % Remisol Heme MCH (RBC) [Entitic mass] 28.5 pg Normal 27.0 - 34.0 pg Remisol Heme MCHC (RBC) [Mass/Vol] 34.0 g/dL Normal 31.4 - 36.0 gm/dL Remisol Heme MCV (RBC) [Entitic vol] 83.9 fL Normal 80.0 - 100.0 fL Remisol Heme Monocytes (Bld) [#/Vol] 0.6 E9/L Normal 0.2 - 1.0 E9/L Remisol Heme Monocytes/100 WBC (Bld) 8.5 % Normal 4.0 - 14.0 % Remisol Heme Neutrophils (Bld) [#/Vol] 3.8 E9/L Normal 2.0 - 7.5 E9/L Remisol Heme Neutrophils/100 WBC (Bld) 55.0 % Normal 36.0 - 75.0 % Remisol Heme Platelet 454.0 E9/L Normal 150.0 - 500.0 E9/L Remisol Heme Platelet mean volume (Bld) [Entitic vol] 7.5 fL Normal 6.4 - 10.8 fL Remisol Heme RBC (Bld) [#/Vol] 4.4 E12/L Normal 4.3 - 5.9 E12/L Remisol Heme WBC corrected for nucl RBC Auto (Bld) [#/Vol] 6.9 E9/L Normal 4.0 - 11.0 E9/L Remisol Heme Lipase Levelon 01-12-2024 Lipase [Catalytic activity/Vol] 158 U/L High 13-58 [facility] Comment on above: Performed By: #### [id number] #### [facility] [address] [place] [address] Prescriptions/Work Noteson 0 01-12-2024 Prescriptions/Work Notes [id number] Normal [facility] SEROLOGYOrdered By: Alisha Smart on 01-12-2024 HCG.beta subunit (U) [Moles/Vol] Negative Normal [facility] Man Sero U BetaHcg Qualon 01-12-2024 HCG.beta subunit (U) [Moles/Vol] Negative Normal [facility] Comment on above: Performed By: #### 2 [id number] #### [facility] [address] [place] [address] UA with Cult Rflxon 01-12-20 24 Bilirubin Ql (U) Negative Normal Negative [facility] Comment on above: Performed By: #### 4 [id number] #### [facility] [address] [place] [address] Clarity (U) Clear Normal Clear [facility] Comment on above: Performed By: #### 4 [id number] #### [facility] [address] [place] [address] Color (U) Light-Yellow Normal Yellow [facility] Comment on above: Result Comment: Micr oscopic readings are only performed on those samples that meet specific criteria set forth by [facility]. Performed By: #### 4 [id number] #### [facility] [address] [place] [address] Epithelial cells.squamous Auto (Urine sed) [#/Area] 3-4 Invalid Interpretation Code [facility] Comment on above: Performed By: #### 4 [id number] #### [facility] [address] [place] [address] Glucose Ql (U) Negative Normal Negative [facility] Comment on above: Performed By: #### 4 [id number] #### [facility] [address] [place] [address] Hemoglobin Auto test strip (U) [Mass/Vol] 2+ mg/dL Abnormal Negative [facility] Comment on above: Performed By: #### 4 [id number] #### [facility] [address] [place] [address] Ketones Auto test strip Ql (U) Negative Normal Negative [facility] Comment on above: Performed By: #### 4 [id number] #### [facility] [address] [place] [address] Leukocyte esterase Auto test strip Ql (U) Negative Normal Negative [facility] Comment on above: Performed By: #### 4 [id number] #### [facility] [address] [place] [address] Mucus Auto Ql (U) Trace Normal Negative [facility] Comment on above: Performed By: #### 4 [id number] #### [facility] [address] [place] [address] Nitrite Auto test strip Ql (U) Negative Normal Negative [facility] Comment on above: Performed By: #### 4 [id number] #### [facility] [address] [place] [address] pH (U) 6.5 [pH] Invalid Interpretation Code 5.0-9.0 [facility] Comment on above: Performed By: #### 4 [id number] #### [facility] [address] [place] [address] Protein Ql (U) Negative Normal Negative [facility] Comment on above: Performed By: #### 4 [id number] #### [facility] [address] [place] [address] RBC Ql (U) 0-3 Normal 0-3 [facility] Comment on above: Performed By: #### 4 [id number] #### [facility] [address] [place] [address] Specific gravity (U) [Rel density] 1.021 Invalid Interpretation Code 1.005-1.030 [facility] Comment on above: Performed By: #### 4 [id number] #### [facility] [address] [place] [address] Urobilinogen (U) [Mass/Vol] Negative Normal Negative [facility] Comment on above: Performed By: #### 4 [id number] #### [facility] [address] [place] [address] WBC Auto (Urine sed) [#/Area] 0-5 Normal 0-5 [facility] Comment on above: Performed By: #### 4 [id number] #### [facility] [address] [place] [address] Type of Urine collection method Random Urine Normal [facility] Comment on above: Performed By: #### 4 [id number] #### [facility] [address] [place] [address] URINALYSISOrdered By: SYSTEM SYSTEM on 01-12-2024 Bilirubin Ql (U) Negative Normal Negativemg/ dL [facility] UA Auto SS Clarity (U) Clear (01/12/24 4:20 PM) Normal Clear [facility] UA Auto SS Color (U) Light-Yellow 1 (01/12/24 4:20 PM) Normal Yellow [facility] UA Auto SS Comment on above: Interpretive Data: M icroscopic readings are only performed on those samples that meet specific criteria set forth by [facility]. Epithelial cells.squamous Auto (Urine sed) [#/Area] 3-4 graded/HPF Invalid Interpretation Code FT UA Auto SS Glucose Ql (U) Negative Normal Negativemg/ dL FT UA Auto SS Hemoglobin Auto test strip (U) [Mass/Vol] 2+ mg/dL Invalid Interpretation Code Negativemg/ dL FT UA Auto SS Ketones Auto test strip Ql (U) Negative Normal Negativemg/ dL FT UA Auto SS Leukocyte esterase Auto test strip Ql (U) Negative Normal NegativeLeu /uL FT UA Auto SS Mucus Auto Ql (U) Trace graded/LPF Normal Negati vegra ded/LPF FT UA Auto SS Nitrite Auto test strip Ql (U) Negative Normal Negativemg/ dL FT UA Auto SS pH (U) 6.5 *NA* (01/12/24 4:20 PM) Invalid Interpretation Code 5.0 - 9.0 [facility] UA Auto SS Protein Ql (U) Negative Normal Negativemg/ dL FT UA Auto SS RBC Ql (U) 0-3 graded/HPF Normal 0-3graded/H PF FT UA Auto SS Specific gravity (U) [Rel density] 1.021 *NA* (01/12/24 4:20 PM) Invalid Interpretation Code 1.005 - 1.030 [facility] UA Auto SS Urobilinogen (U) [Mass/Vol] Negative Normal Negativemg/ dL [facility] UA Auto SS WBC Auto (Urine sed) [#/Area] 0-5 graded/HPF Normal 0-5graded/H PF FT UA Auto SS URINALYSISOrdered By: Aicha Schroeder on 01-12-2024 UA Spec Desc Random Urine (01/12/24 4:20 PM) Normal [facility] UA Auto SS Work Phone: eGFRon 01-12-2024 eGFR 128 mL/min/1.73 m2 Normal >=59 [facility] Comment on above: Order Comment: Order added by Discern Expert. Performed By: #### 1 [id number] #### [facility] [address] [place] [address] EEGon 05-23-2023 EEG This is a long-term continuous video electroencephalogram monitor performed on an 17-year-old female using standard 10/20 lead placement and a [employer] system. All data were obtained digitally and are available for reformatting and remontage. A simultaneous continuous video electroencephalogram monitor was performed during the record. There is a posterior dominant rhythm in the 9-11 hertz alpha range and 20-30 microvolt amplitude range recorded in the occipital leads symmetrically during restful wakefulness. This rhythm attenuates with eye opening. There is beta activity in the 15-20 hertz range and less than 20 microvolt amplitude range recorded in the frontocentral regions intermittently and symmetrically throughout the record. There is attenuation of the background rhythm, rolling eye movements, attenuation of muscle artifact, and generalized slowing consistent with stage I sleep. There is generalized slowing with superimposed spindle activity in the 12-14 hertz range recorded in the frontocentral regions intermittently and symmetrically during this time period consistent with stage II sleep. All sleep stages were intermixed and occurred during a fairly normal sleep-wake cycle over a 24-hour period. There was one marked episode which occurred during initiation of the video electroencephalogram with photic stimulation manifest as a myoclonic-type jerk and fluttering of the eyes which had no abnormal epileptiform electroencephalogram correlate. There is no epileptiform activity recorded during the record. There are no electroencephalogram seizures recorded during the record. IMPRESSION: This is a normal 24-hour continuous video electroencephalogram monitor. There was one event which was nonepileptic recorded during photic stimulation. Melecio Rubio M.D. ca Dictated: 05/15/2023 [id number] Typed: 05/15/2023 [facility] Comment on above: Result Comment: Elec tronically Signed By: Ramiro MARCANO, Melecio\.br\Date and Time Signed: 05/23/23 08:20 EDT EEG This is a continuati on of the previous 24-hour recording. This is a continuous video electroencephalogram performed on an 17-year-old female using standard 10/20 lead placement and a [employer] system. All data were available for reformatting and remontage. There is a posterior dominant rhythm in the 9-11 hertz alpha range and 20-30 microvolt amplitude range recorded in the occipital leads symmetrically during restful wakefulness. This rhythm attenuates with eye opening. There is beta activity in the 15-20 hertz range and less than 20 microvolt amplitude range recorded in the frontocentral regions intermittently and symmetrically throughout the record. There is attenuation of the background rhythm, rolling eye movements, attenuation of muscle artifact, and generalized slowing, consistent with stage I sleep. There is generalized slowing with superimposed spindle activity in the 12-14 hertz range recorded in the frontocentral regions intermittently and symmetrically during the record consistent with stage II sleep. All sleep stages were intermixed during the record and occurred during a fairly normal sleep-wake cycle over a 24-hour period. There were three events marked during the record with video confirmation of eye blinking and myoclonic-type body jerks which occurred during the record lasting approximately one minute each. These episodes had no abnormal background rhythm and maintained normal background rhythm during the events. There was no postictal slowing which occurred subsequent to the event, and the patient returned to baseline immediately. There was some muscle artifact which confounds portions of the events. There is no epileptiform activity recorded during the record. There are no electroencephalogram seizures recorded during the record. IMPRESSION: This is a normal 24-hour continuous video electroencephalogram monitor. There were three nonepileptic events recorded during the record which have no abnormal electroencephalogram correlate consistent with paroxysmal nonepileptic seizures. The patient reports these represent her typical events. Clinical correlation is required. Melecio Rubio M.D. ca Dictated: 05/15/2023 [id number] Typed: 05/15/2023 [facility] Comment on above: Result Comment: Elec tronically Signed By: Ramiro MARCANO, Melecio\.br\Date and Time Signed: 05/23/23 08:20 EDT Coding Queryon 05-18-2023 Coding Query - From: Pratik Kinsey RN To: Alicia Sidhu; Sent: 05/12/2023 12:11:38 EDT ! Subject: Coding Query Due Date/Time: 05/13/2023 12:11:00 EDT Caller Name: ROSE MARY SCHNEIDER; Caller Number: H Documentation in the medical record indicates that this patient has been admitted with the following BMI: BMI 42.81 While BMI may be coded from hotel controller or nursing documentation, the weight-related diagnosis must be coded from physician documentation. BMI is usually calculated as weight (in kg) divided by height (in meters) squared, or kg/m2. The following is also documented in the medical record: BMI 42.81 Based on your medical judgment, can you further clarify the following? Select all that apply: [___]Morbid (severe) obesity due to excess calories (BMI 40 or greater) [___]BMI 40.0 - 44.9 [___]Other: In responding to this request, please exercise your independent professional judgement. The fact that a question is asked does not imply that any particular answer is desired or expected. Thank you![id number] [id number] From: Alicia Sidhu To: Tio SHER, Pratik Villegas; Sent: 05/18/2023 16:27:44 EDT Subject: RE: Coding Query Caller Name: ROSE MARY SCHNEIDER; Caller Number: H please code as morbid obesity Normal [facility] Discharge Instructionson Discharge Instructions [id number] Normal [facility] Inpatient Clinical Summaryon 05-13-2023 Inpatient Clinical Summary [address] [address] Clinical Summary Person Information: Name: ROSE MARY SCHNEIDER Age: 17 Years : 2005 Sex: Female PCP: Claudia Ellington MD Marital Status: Single Phone: [phone] Race: White Ethnicity: Non- or Language: Honduran Visit Id: Visit Reason: R56.9 Unspecified convulsions Speciality: Acuity: Enc Type: Inpatient Med Service: Neurology Clinic Arrival: 05/11/2023 07:26:33 Discharge: Dispo Type: Address: [address] [place] [address] DR [facility] [id number] Provider Notes: Diagnosis: 1:Seizures; 2:History of gastroesophageal reflux (GERD); 3:Insomnia; 4:Depression; 5:Seasonal allergies; 6:Morbid obesity Problems Active Smoker Smoking Status: Never Smoker Functional Status: Sensory Deficits: History of Falls: Mobility Assistance Prior to Admission: ADLs: Independent Current Level of Assistance for Self-Care/Mobility: Cognitive Status: Oriented x 3 Allergies No Known Allergies Measurements: Height: 165.10 cm Weight: 114.7 kg Blood Pressure: 119 mmHg / 86 mmHg BMI: 42.81 kg/m2 Procedures No Procedures Documented Immunizations No Immunizations Documented This Visit Final Med List: APAP/butalbital/caffeine (APAP/butalbital/caffeine 325 mg-50 mg-40 mg Tab) 1 Tablets By Mouth every 4 hours as needed for headache. Refills: 0. cetirizine (cetirizine 5 mg oral tablet) 2 Tablets By Mouth every day. clonidine (cloNIDine 0.1 mg tab) 1 Tablets By Mouth every day. ethinyl estradiol-norethindrone (Junel Fe 08/22 oral tablet) 28 EA, TAKE 1 TABLET BY MOUTH EVERY DAY. fluoxetine (FLUoxetine 40 mg Cap) lamotrigine (Lamictal 25 mg Tab) 1 Tablets By Mouth every day. levetiracetam (Keppra 500 mg Tab) 1 Tablets By Mouth 2 times a day. Refills: 0. lurasidone (lurasidone 60 mg oral tablet) 30 EA, TAKE 1 TABLET BY ORAL ROUTE 1 TIME PER DAY WITH FOOD (AT LEAST 350 CALORIES). melatonin-pyridoxine (melatonin-pyridoxine 3 mg-10 mg oral tablet, extended release) 30 EA, TAKE 1 TABLET BY ORAL ROUTE PER AT BEDTIME NEEDED FOR INSOMNIA. pantoprazole (Protonix 40 mg tablet) Care Team Members: Attending Physician: Akosua LR MD Consulting Physician: Melecio Rubio MD Referring Physician: PEYTON SALCIDO CNP Follow up: With: Address: When: Joann Zamorano [facility], [address] [place] [id number] Business (1) Comments: Call for hospital followup appointment 2-3 weeks With: Address: When: Claudia Ellington [address] [facility], [place] [address] Business (1) Comments: Call for followup appointment Patient Education Information: Seizure, Adult Keppra Normal [facility] Inpatient Patient Summaryon 05-13-2023 Inpatient Patient Summary ROSE MARY SCHNEIDER :2005 Visit Date:05/11/2023 Inpatient Discharge Instructions Your Care Team Admitting Physician - ADELINE MARCANO, Akosua Consulting Physician - Ramiro MARCANO, Melecio Referring Physician - PEYTON SALCIDO CNP Reason for Your Visit LTME Your Diagnosis Seizures History of gastroesophageal reflux (GERD) Insomnia Depression Seasonal allergies Morbid obesity Tests Performed Automated Diff Capillary Glucose POC CBC w/ Auto Diff CMP eGFR Magnesium Level This Is Your Medications List APAP/butalbital/caffeine (APAP/butalbital/caffeine 325 mg-50 mg-40 mg Tab) cetirizine (cetirizine 5 mg oral tablet) clonidine (cloNIDine 0.1 mg tab) ethinyl estradiol-norethindrone (Junel Fe 08/22 oral tablet) fluoxetine (FLUoxetine 40 mg Cap) lamotrigine (Lamictal 25 mg Tab) levetiracetam (Keppra 500 mg Tab) lurasidone (lurasidone 60 mg oral tablet) melatonin-pyridoxine (melatonin-pyridoxine 3 mg-10 mg oral tablet, extended release) pantoprazole (Protonix 40 mg tablet) Procedure History Myringotomy and drainage of middle ear. Discharge Vitals Temperature (Oral) 36.8 ?C Heart Rate (Monitored) 76 Respiratory Rate 14 Blood Pressure 112/84 Weight 114.7 kg What to do next Instructions From Your Doctor Event Name Event Result Discharge Activity Activity as tolerated Discharge Restrictions No driving Discharge Diet(s) Fat Modified- Low cholesterol Pending Diagnostic Test Results None Pharmacy Information [facility] Discharge Instructions NO DRIVING until cleared by neurology New Follow Up Appointments after Discharge Follow Up with Joann Zamorano When: Comments: Call for hospital followup appointment 2-3 weeks Where: [facility] [address] [place] [address]- Business (1) Follow Up with Claudia Ellington When: Comments: Call for followup appointment Where: [address] [facility] [place] [address]- Business (1) Medications What How Much When Instructions Next Dose Changed levetiracetam (Keppra 500 mg Tab) 1 Tablets By Mouth 2 times a day Pickup at [facility]/pharmacy #[id number] 05/13 9pm Unchanged APAP/ butalbital/ caffeine (APAP/ butalbital/ caffeine 325 mg-50 mg-40 mg Tab) 1 Tablets By Mouth Every 4 hours as needed for for headache Resume Unchanged cetirizine (cetirizine 5 mg oral tablet) 2 Tablets By Mouth Every day Resume Unchanged clonidine (cloNIDine 0.1 mg tab) 1 Tablets By Mouth Every day 05/14 9am Unchanged ethinyl estradiol-norethindrone (Junel Fe oral tablet) 28 EA, TAKE 1 TABLET BY MOUTH EVERY DAY Resume Unchanged fluoxetine (FLUoxetine 40 mg Cap) 05/14 9am Unchanged lamotrigine (Lamictal 25 mg Tab) 1 Tablets By Mouth Every day 05/14 9am Unchanged lurasidone (lurasidone 60 mg oral tablet) 30 EA, TAKE 1 TABLET BY ORAL ROUTE 1 TIME PER DAY WITH FOOD (AT LEAST 350 CALORIES) 05/14 9am Unchanged melatonin-pyridoxine (melatonin-pyridoxine 3 mg-10 mg oral tablet, extended release) 30 EA, TAKE 1 TABLET BY ORAL ROUTE PER AT BEDTIME NEEDED FOR INSOMNIA Resume Unchanged pantoprazole (Protonix 40 mg tablet) Resume Pharmacy Information [facility]/pharmacy #[id number]: [address] [place], [place] [id number] [phone] Test Results CBC BMP WBC: 5.6 E9/L (05/12/23 05:50:00) Glucose Lvl: 93 mg/dL (05/12/23 05:50:00) RBC: 4.5 E12/L (05/12/23 05:50:00) BUN: 12 mg/dL (05/12/23 05:50:00) HGB: 13.2 gm/dL (05/12/23 05:50:00) Creatinine: 0.9 mg/dL (05/12/23 05:50:00) Hct: 38.5 % (05/12/23 05:50:00) BUN/Creat Ratio: 13 (05/12/23 05:50:00) MCV: 85.2 fL (05/12/23 05:50:00) Sodium Lvl: 136 mmol/L (05/12/23 05:50:00) MCH: 29.2 pg (05/12/23 05:50:00) Potassium Lvl: 3.7 mmol/L (05/12/23 05:50:00) MCHC: 34.3 gm/dL (05/12/23 05:50:00) Chloride: 108 mmol/L (05/12/23 05:50:00) RDW: 13.8 % (05/12/23 05:50:00) CO2: 24 mmol/L (05/12/23 05:50:00) Platelet: 332 E9/L (05/12/23 05:50:00) AGAP: 8 mEq/L (05/12/23 05:50:00) MPV: 8.2 fL (05/12/23 05:50:00) Calcium Lvl: 9 mg/dL (05/12/23 05:50:00) Allergies No Known Allergies Problems Ongoing - Any problem that you are currently receiving treatment for. Smoker Historical - Any problem that you are no longer receiving treatment for. Seizure Education Materials Seizure, Adult A seizure is a sudden [...] causes? Common causes of this condition include: ? Fever or infection. ? Brain injury, head trauma, bleeding in the brain, or a brain tumor. ? Low levels of blood sugar or salt (sodium). ? Kidney problems or liver problems. ? Metabolic (more content not included)... Normal [facility] Inpatient Patient Summary [place] [id number] Patient Discharge Instructions PERSON INFORMATION Name: ROSE MARY SCHNEIDER Date of : 2005 Current Date: 05/13/2023 12:04:22 PHYSICIANS Admitting Physician: Akosua LR MD Primary Care Physician: Claudia Ellington MD PCP Comment: Discharge Diagnosis: 1:Seizures; 2:History of gastroesophageal reflux (GERD); 3:Insomnia; 4:Depression; 5:Seasonal allergies; 6:Morbid obesity Condition at Discharge: Stable ROSE MARY SCHNEIDER has been given the following list of follow-up instructions, prescriptions, and patient education materials: PATIENT FOLLOW-UP INFORMATION Diet: Fat Modified- Low cholesterol Discharge Activity: Activity as tolerated Discharge Restrictions: No driving Wound Care Instructions: Remove Your Dressing In Days Call Your Doctor For: IF UNABLE TO CONTACT YOUR PHYSICIAN AND YOU FEEL IT IS AN EMERGENCY, GO TO THE NEAREST EMERGENCY ROOM OR CALL 911 Home Treatment: Devices/Equipment: None Special Services: Additional Instructions: NO DRIVING until cleared by neurology Primary Care Physician to provide the following pending test results: None Follow up: With: Address: When: Joann Zamorano [facility], [address] [place] [address] Business (1) Comments: Call for hospital followup appointment 2-3 weeks With: Address: When: Claudia Ellington [address] [place] [address], [place] [address] Business (1) Comments: Call for followup appointment In the event that this physician does not participate in your insurance network, please consult with your insurance company to find a nearby participating provider. Comment: JENNIE Chaudhari VERONICA R, have received the attached patient education materials/instructions and have verbalized understanding: Patient Signature ____ Date Clinican/Nurse Signature Date HERE ARE THE MEDICATION CHANGES THAT OCCURRED DURING YOUR HOSPITAL STAY Medications to Continue Taking That Have Changed [facility]/pharmacy #[id number], [address] [place] [id number], [phone] START: levetiracetam (Keppra 500 mg Tab) 1 Tablets By Mouth 2 times a day. Refills: 0. Last Dose: Next Dose: STOP: levetiracetam (Keppra) 1,000 Milligram By Mouth 2 times a day. Medications to Continue with No Changes Other Medications APAP/butalbital/caffeine (APAP/butalbital/caffeine 325 mg-50 mg-40 mg Tab) 1 Tablets By Mouth every 4 hours as needed for headache. Refills: 0. Last Dose: Next Dose: cetirizine (cetirizine 5 mg oral tablet) 2 Tablets By Mouth every day. Last Dose: Next Dose: clonidine (cloNIDine 0.1 mg tab) 1 Tablets By Mouth every day. Last Dose: Next Dose: ethinyl estradiol-norethindrone (08/22 oral tablet) 28 EA, TAKE 1 TABLET BY MOUTH EVERY DAY., Responsible Provider: DENEEN MEDRANO Last Dose: Next Dose: fluoxetine (FLUoxetine 40 mg Cap) Last Dose: Next Dose: lamotrigine (Lamictal 25 mg Tab) 1 Tablets By Mouth every day. Last Dose: Next Dose: lurasidone (lurasidone 60 mg oral tablet) 30 EA, TAKE 1 TABLET BY ORAL ROUTE 1 TIME PER DAY WITH FOOD (AT LEAST 350 CALORIES)., Responsible Provider: MISTY MACKEY Last Dose: Next Dose: melatonin-pyridoxine (melatonin-pyridoxine 3 mg-10 mg oral tablet, extended release) 30 EA, TAKE 1 TABLET BY ORAL ROUTE PER AT BEDTIME NEEDED FOR INSOMNIA., Responsible Provider: MISTY MACKEY Last Dose: Next Dose: pantoprazole (Protonix 40 mg tablet) Last Dose: Next Dose: Comment: MEDICATION LIST PROVIDED FOR YOU IS A LIST OF YOUR CURRENT MEDICATIONS. PLEASE CARRY THIS WITH YOU AT ALL TIMES. APAP/butalbital/caffeine (APAP/butalbital/caffeine 325 mg-50 mg-40 mg Tab) 1 Tablets By Mouth every 4 hours as needed for headache. Refills: 0. cetirizine (cetirizine 5 mg oral tablet) 2 Tablets By Mouth every day. clonidine (cloNIDine 0.1 mg tab) 1 Tablets By Mouth every day. ethinyl estradiol-norethindrone (Junel 08/22 oral tablet) 28 EA, TAKE 1 TABLET BY MOUTH EVERY DAY. fluoxetine (FLUoxetine 40 mg Cap) lamotrigine (Lamictal 25 mg Tab) 1 Tablets By Mouth every day. levetiracetam (Keppra 500 mg Tab) 1 Tablets By Mouth 2 times a day. Refills: 0. lurasidone (lurasidone 60 mg oral tablet) 30 EA, TAKE 1 TABLET BY ORAL ROUTE 1 TIME PER DAY WITH FOOD (AT LEAST 350 CALORIES). melatonin-pyridoxine (melatonin-pyridoxine 3 mg-10 (more content not included)... Normal [facility] Interdisciplinary Note - Binu e Manageron 05-13-2023 Interdisciplinary Note - Passenger Service Representative CRM entered the room to discuss dc planning. Pt is sleeping. Neuro following. ANt dc TBD. CRM to follow. Normal [facility] Comment on above: Result Comment: Elec tronically Signed By: Peyton Mccarty.hemant\Date and Time Signed: 05/13/23 09:22 EDT Monitor Recordon 05-13-2023 Monitor Record [id number] Normal [facility] Monitor Record [id number] Normal [facility] Progress Note-Physicianon Progress Note-Physician Basic Information The patient is an 17-year-old female admitted to the hospital for long-term video EEG monitoring. The patient has recurrent episodes of alteration of awareness sometimes induced by stress. The patient is amnestic of the events which occur. The patient states that he has had multiple episodes over the past year. The patient has had evaluated by Dr. Landin and had outpatient EEGs which were nondiagnostic. The patient currently denies any focal neurological findings. The patient is admitted for further work-up and evaluation. [1] [1] Assessment/Plan The patient is an 17-year-old female with recurrent episodes of alteration of [...] Seasonal allergies (J30.2: Other seasonal allergic rhinitis) Subjective Review of Systems Constitutional: no fever, no chills, no sweats, no weakness Respiratory: no shortness of breath, no cough, no orthopnea, no wheezing Cardiovascular: no chest pain, no palpitations, no edema Additional ROS info: Except as noted in the above Review of Systems and in the History of Present Illness all other systems have been reviewed and are negative or noncontributory. [3] [2] Objective Vitals & Measurements T: 36.6 ?C(Oral) TMIN: 36.6 ?C(Oral) TMAX: 36.8 ?C(Oral) HR: 75(Monitored) RR: 20 BP: 119/77 SpO2: 96% WT: 114.7 kg Intake & Output This visit (24 hour periods starting at 07:00 EDT) 05/13/23 * 05/12/23 05/11/23 Total Summary Intake mL 0.5 2 500 Output mL -- 740 -- Fluid Balance 0.5 -738 500 Intake (3) Oral Intake mL -- -- 500 ondansetron mL -- 2 -- promethazine mL 0.5 -- -- Total 0.5 2 500 Output (2) Emesis mL -- 300 -- Urine Voided mL -- 440 -- Total -- 740 -- Counts (2) Emesis mL -- 300 -- Urine Count -- 4 2 * This column has not completed the indicated time period. Physical Exam The patient is awake and alert. The patient is oriented x3. Language is intact including comprehension and fluency, fund of knowledge is intact, memory is intact. Cranial nerves: Pupils are equal round and reactive to light and accommodation, extraocular movements intact, visual lujan are full to confrontation, funduscopic exam is normal, face is symmetric bilaterally, sensations intact in the face, palate elevates bilaterally, tongue protrudes midline, hearing is intact to finger rub, shoulder shrug is symmetric. Motor exam: Strength testing is 5 out of 5 MRC scale strength in all 4 extremities. Deep tendon reflexes are 2+ and symmetric. Tone is normal throughout. Plantar reflexes flexor bilaterally. Sensory exam: Sensations intact to light touch and pinprick sensation in all 4 extremities. Cerebellar exam: [id number] reveals no ataxia. Gait is normal. [4] [3] Lab Results Glucose Cap: 84 mg/dL (05/12/23 21:54:00) POC Device SN: [id number] (05/12/23 21:54:00) POC User ID: [id number] (05/12/23 21:54:00) POC Username: NERY ALCALA (05/12/23 21:54:00) Problem List/Past Medical History Ongoing Smoker Historical Seizure Medications Inpatient acetaminophen 325 mg Tab, 650 mg= 2 tab(s), Oral, q6hr, PRN cloNIDine 0.1 mg tab, 0.1 mg= 1 tab(s), Oral, Daily drospirenone-ethinyl estradiol 3 mg-0.03 mg Tab, 1 tab(s), Oral, Daily FLUoxetine 20 mg Cap, 40 mg= 2 cap(s), Oral, Daily heparin 5000 units/mL Inj, 5000 unit(s)= 1 mL, SubCutaneous, q8hrFT loratadine 10 mg Tab, 10 mg= 1 tab(s), Oral, Daily lurasidone, 60 mg= 3 tab(s), Oral, Daily melatonin 3 mg Tab, 3 mg= 1 tab(s), Oral, Bedtime, PRN Phenergan 25 mg/mL Injection, 12.5 mg= 0.5 mL, IV Push, q6hr, PRN Protonix 40 mg Tab-DR, 40 mg= 1 tab(s), Oral, Daily Zofran 4 mg/2 mL Injection, 4 mg= 2 mL, IV Push, q6hr, PRN Home APAP/butalbital/caffeine 325 mg-50 mg-40 mg Tab, 1 tab(s), Oral, q4hr, PRN ceti (more content not included)... Normal [facility] Comment on above: Result Comment: Elec tronically Signed By: Riya Tidwell RN\.br\Date and Time Signed: 05/13/23 09:16 EDT\.br\Electronically Co-Signed By: Melecio Rubio MD\.br\Date and Time Co-Signed: 05/13/23 16:14 EDT Progress Note-Physician Assessment/Plan 1. Seizures (R56.9: Unspecified convulsions) Admitted for the purpose of LTME [...] Metabolic Panel eGFR Magnesium Level Regular Diet Subjective Seen and examined at 0840. Pleasant and conversive without any complaints with basic review of systems. No needs expressed at this time. Discussed this case directly with Dr. Rubio and primary nurse. Objective Vitals & Measurements T: 36.8 ?C(Oral) TMIN: 36.6 ?C(Oral) TMAX: 36.8 ?C(Oral) HR: 77(Monitored) RR: 15 BP: 96/74 SpO2: 97% WT: 114.9 kg Intake & Output This visit (24 hour periods starting at 07:00 EDT) 05/12/23 * 05/11/23 05/10/23 Total Summary Intake mL -- 500 -- Output mL -- -- -- Fluid Balance -- 500 -- Intake (1) Oral Intake mL -- 500 -- Total -- 500 -- Output (0) Counts (1) Urine Count -- 2 -- * This column has not completed the indicated time period. Physical Exam General: alert, no acute distress Skin: warm, dry Head: no trauma, normocephalic Neck: Trachea midline, no adenopathy, no tenderness Eye: normal conjunctiva, sclera clear ENMT: TM's clear, oral mucosa moist, no pharyngeal erythema or exudate Cardiovascular: regular rate and rhythm, normal peripheral perfusion Respiratory: Lungs CTA, respirations non labored Chest wall: no deformity. Gastrointestinal: soft, non distended, no tenderness, no guarding. Back: No tenderness, Normal ROM, Normal alignment. Extremities: no deformity, no trauma Neurological: oriented x 4, LOC appropriate for age, CN II-XII intact, motor strength equal & normal bilaterally, sensation equal & normal bilaterally, speech normal Psychiatric: cooperative, affect appropriate for age, normal judgement, normal psychiatric thoughts. Lab Results WBC: 5.6 E9/L (05/12/23 05:50:00) RBC: 4.5 E12/L (05/12/23 05:50:00) HGB: 13.2 gm/dL (05/12/23 05:50:00) Hct: 38.5 % (05/12/23 05:50:00) MCV: 85.2 fL (05/12/23 05:50:00) MCH: 29.2 pg (05/12/23 05:50:00) MCHC: 34.3 gm/dL (05/12/23 05:50:00) RDW: 13.8 % (05/12/23 05:50:00) Platelet: 332 E9/L (05/12/23 05:50:00) MPV: 8.2 fL (05/12/23 05:50:00) Neutro Auto: 46.4 % (05/12/23 05:50:00) Lymph Auto: 41.3 % (05/12/23 05:50:00) Becker Auto: 8.8 % (05/12/23 05:50:00) Eos Auto: 3.1 % (05/12/23 05:50:00) Basophil Auto: 0.4 % (05/12/23 05:50:00) Neutro Absolute: 2.6 E9/L (05/12/23 05:50:00) Lymph Absolute: 2.3 E9/L (05/12/23 05:50:00) Becker Absolute: 0.5 E9/L (05/12/23 05:50:00) Eos Absolute: 0.2 E9/L (05/12/23 05:50:00) Basophil Absolute: 0 E9/L (05/12/23 05:50:00) Glucose Lvl: 93 mg/dL (05/12/23 05:50:00) BUN: 12 mg/dL (05/12/23 05:50:00) Creatinine: 0.9 mg/dL (05/12/23 05:50:00) eGFR: 95 mL/min/1.73 m2 (05/12/23 05:50:00) BUN/Creat Ratio: 13 (05/12/23 05:50:00) Sodium Lvl: 136 mmol/L (05/12/23 05:50:00) Potassium Lvl: 3.7 mmol/L (05/12/23 05:50:00) Chloride: 108 mmol/L (05/12/23 05:50:00) CO2: 24 mmol/L (05/12/23 05:50:00) AGAP: 8 mEq/L (05/12/23 05:50:00) Calcium Lvl: 9 mg/dL (05/12/23 05:50:00) Alk Phos: 50 Int._Unit/L (05/12/23 05:50:00) ALT: 13 Int._Unit/L (05/12/23 05:50:00) AST: 16 Int._Unit/L (05/12/23 05:50:00) Total Protein: 7.4 gm/dL (05/12/23 05:50:00) Albumin Lvl: 3 gm/dL Low (05/12/23 05:50:00) Globulin: 4.4 gm/dL High (05/12/23 05:50:00) A/G Ratio: 0.7 Low (05/12/23 05:50:00) Bili Total: 0.4 mg/dL (05/12/23 05:50:00) Magnesium: 2 mg/dL (05/12/23 05:50:0 (more content not included)... Normal [facility] Comment on above: Result Comment: Elec tronically Signed By: Alicia Sidhu\.br\Date and Time Signed: 05/12/23 15:34 EDT\.br\Electronically Co-Signed By: ADELINE MARCANO, Akosua\.br\Date and Time Co-Signed: 05/13/23 07:06 EDT Auto Diffon 05-12-2023 Basophils/100 WBC (Bld) 0.4 % Normal 0.0-2.0 [facility] Comment on above: Order Comment: Order Added by Discern Expert. Performed By: #### 2 [id number], [id number] #### [facility] [address] [place] [address] Basophils/Leukocytes Auto (Bld) [Pure # fraction] 0.0 E9/L Normal 0.0-0.2 [facility] Comment on above: Order Comment: Order Added by Discern Expert. Performed By: #### 2 [id number], [id number] #### [facility] [address] [place] [address] Eosinophils/100 WBC (Bld) 3.1 % Normal 0.0-8.0 [facility] Comment on above: Order Comment: Order Added by Discern Expert. Performed By: #### 2 [id number], [id number] #### [facility] [address] [place] [address] Eosinophils/Leukocytes Auto (Bld) [Pure # fraction] 0.2 E9/L Normal 0.0-0.5 [facility] Comment on above: Order Comment: Order Added by Discern Expert. Performed By: #### 2 [id number], [id number] #### [facility] [address] [place] [address] Lymphocytes/100 WBC (Bld) 41.3 % Normal 14.0-50.0 [facility] Comment on above: Order Comment: Order Added by Discern Expert. Performed By: #### 2 [id number], [id number] #### [facility] [address] [place] [address] Lymphocytes/Leukocytes Auto (Bld) [Pure # fraction] 2.3 E9/L Normal 1.0-4.0 [facility] Comment on above: Order Comment: Order Added by Discern Expert. Performed By: #### 2 [id number], [id number] #### [facility] [address] [place] [address] Monocytes/100 WBC (Bld) 8.8 % Normal 4.0-14.0 [facility] Comment on above: Order Comment: Order Added by Discern Expert. Performed By: #### 2 [id number], [id number] #### [facility] [address] [place] [address] Monocytes/Leukocytes Auto (Bld) [Pure # fraction] 0.5 E9/L Normal 0.2-1.0 [facility] Comment on above: Order Comment: Order Added by Discern Expert. Performed By: #### 2 [id number], [id number] #### [facility] [address] [place] [address] Neutrophils/100 WBC (Bld) 46.4 % Normal 36.0-75.0 [facility] Comment on above: Order Comment: Order Added by Discern Expert. Performed By: #### 2 [id number], [id number] #### [facility] [address] [place] [address] Neutrophils/Leukocytes Auto (Bld) [Pure # fraction] 2.6 E9/L Normal 2.0-7.5 [facility] Comment on above: Order Comment: Order Added by Discern Expert. Performed By: #### 2 [id number], [id number] #### [facility] [address] [place] [address] CBC w/ Auto Diffon Erythrocyte distribution width (RBC) [Ratio] 13.8 % Normal 10.9-14.2 [facility] Comment on above: Performed By: #### 2 [id number], [id number] #### [facility] [address] [place] [address] Hematocrit (Bld) [Volume fraction] 38.5 % Normal 34.0-46.0 [facility] Comment on above: Performed By: #### 2 630903, [id number] #### [facility] [address] [place] [address] Hemoglobin (Bld) [Mass/Vol] 13.2 g/dL Normal 12.0-16.0 [facility] Comment on above: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 [id number]#[id number]:1 27 [facility] Monitor Record [id number]#[id number]:1 27 [facility] Progress Note-Physicianon Progress Note-Physician Subjective Doing well voicing no complaints overnight or this morning Review of Systems Constitutional: no fever, no chills, no sweats, no weakness Skin: no Jaundice, no rash, no lesions, nopetechiae ENMT: no ear pain, no sore throat, no congestion, no hoarseness Respiratory: no shortness of breath, no cough, no orthopnea, no wheezing Cardiovascular: no chest pain, no palpitations, no edema Gastrointestinal: no nausea, no vomiting, no diarrhea, no GI bleeding Genitourinary: no dysuria, no hematuria, no discharge, no pain Musculoskeletal: no back pain, no trauma Neurologic: no headache, no dizziness, no numbness, no weakness Psychiatric: no sleeping problems, no irritability, no mood swings/depression. Heme/Lymph: no bleeding tendency, no bruising tendency, no petechiae, no swollen nodes Allergy/Immunologic: no seasonal allergies, no food allergies, no recurrent infections, no impaired immunity Additional ROS info: Except as noted in the above Review of Systems and in the History of Present Illness all other systems have been reviewed and are negative or noncontributory. Objective Vitals & Measurements T: 36.6 ?C(Oral) TMIN: 36.6 ?C(Oral) TMAX: 36.9 ?C(Oral) HR: 87(Monitored) RR: 18 BP: 115/72 SpO2: 96% WT: 118.1 kg Intake & Output This visit (24 hour periods starting at 07:00 EDT) 03/10/23 * 03/09/23 03/08/23 Total Summary Intake mL -- 100 767.7 Output mL -- 50 725 Fluid Balance -- 50 42.7 Intake (4) Generic Diluent, levetiracetam mL -- -- 100 Oral Intake mL -- 100 660 Sodium Chloride 0.9% intravenous solution 1,000 mL mL -- -- 7.2 lorazepam mL -- -- 0.5 Total -- 100 767.7 Output (1) Urine Voided mL -- 50 725 Total -- 50 725 Counts (1) Urine Count 1 2 -- * This column has not completed the indicated time period. Physical Exam Constitutional: Awake and alert; oriented x3 with no apparent distress or respiratory distress Head/neck: Neck supple with no palpable lymphadenopathy, bruits or masses; trachea midline Chest/lungs: Clear to auscultation bilaterally no wheezes or rhonchi noted Cardiovascular: Regular rate and rhythm; normal S1-S2 with no murmur; no pitting edema and 2+ pulses bilaterally Gastrointestinal: Soft, nontender, nondistended, positive bowel sounds; obese Neurological: Nonfocal; cranial nerves II through XII are intact Psychological: Pleasant affect Lab Results No qualifying data available. Assessment/Plan 17-year-old female admitted for intentional overdose of [...] this morning are within normal limits Ordered: [facility] Care/Day Moderate 35 Minutes 27326 2. Hypokalemia, (E87.6: Hypokalemia)Hypokalemia Resolved Ordered: [facility] Care/Day Moderate 35 Minutes 58402 2. Suicidal ideation (R45.851: Suicidal ideations) No longer expressing suicidal ideation She was pink slipped yesterday; awaiting MHP Ordered: [facility] Care/Day Moderate 35 Minutes 66508 3. Antihistamines overdose (T45.0X1A: Poisoning by antiallergic and antiemetic drugs, accidental (unintentional), initial encounter) Ordered: [facility] Care/Day Moderate 35 Minutes 69945 5. Depression (F32.A: Depression, unspecified) Continue fluoxetine Ordered: [facility] Care/Day Moderate 35 Minutes 60937 6. Seizure (R56.9: Unspecified convulsions) Continue Keppra, Lamictal and lurasidone Seizure precautions Ordered: [facility] Care/Day Moderate 35 Minutes 97983 7. Obesity (E66.9: Obesity, unspecified) Ordered: [facility] Care/Day Moderate 35 Minutes 16475 8. On deep vein thrombosis (DVT) prophylaxis (Z79.899: Other usp (current) drug therapy) Early ambulation with SCDs Ordered: [facility] Care/Day Moderate 35 Minutes 79034 Orders: Transfer Patient to Transfer Patient to PLAN: 1. Continue current meds from home including her paroxetine for depression as well as her Keppra, Lamictal and lurasidone for her seizures 2. Seizure precautions in place 3. Patient pink slipped yesterday awaiting MHP 4. Discharge planning Problem List/Past Medical History Ongoing Smoker Historical Seizure Medications Inpatient Ativan 2 mg/mL Injection, 1 mg= 0.5 mL, IV Push, QID, PRN Benadryl 25 mg Cap, 25 mg= 1 cap(s), Oral, q6hr, PRN FLUoxetine 20 mg Cap, 40 mg= 2 cap(s), Oral, Daily hydrALAZINE (more content not included)... Normal [facility] Comment on above: Result Comment: Elec tronically Signed By: Lawrence Reveles DO\.br\Date and Time Signed: 03/10/23 11:16 EDT CHEMISTRYOrdered By: SYSTEM SYSTEM on 03-09-2023 Albumin [Mass/Vol] 3.1 g/dL Low 3.3 - 5.0 gm/dL FT Remisol Albumin/Globulin [Mass ratio] 0.8 {ratio} Low [...] mL/min/1.73 m2 Normal >=59mL/min/ 1.73 m2 [facility] Chem S Globulin (S) [Mass/Vol] 4.0 g/dL Normal 1.4 - 4.0 gm/dL [facility] Remisol Glucose [Mass/Vol] 93 mg/dL Normal 55 - 199 mg/dL [facility] Remisol Potassium [Moles/Vol] 4.0 mmol/L Normal 3.5 - 5.3 mmol/L [facility] Remisol Protein [Mass/Vol] 7.1 g/dL Normal 6.0 - 7.8 gm/dL [facility] Remisol Sodium [Moles/Vol] 137 mmol/L Normal 135 - 145 mmol/L [facility] Remisol Urea nitrogen [Mass/Vol] 11 mg/dL Normal 5 - 21 mg/dL [facility] Remisol Urea nitrogen/Creatinine [Mass ratio] 16 mg/mg Normal 10 - 20 [facility] Remisol CMPon 03-09-2023 Albumin [Mass/Vol] 3.1 g/dL Low 3.3-5.0 [facility] Comment on above: Order Comment: per p melani Brito wants us to wait till 0800 to draw labs [id number] 03/09/2023 06:41:32 EDT Performed By: #### 2 [id number], [id number] #### [facility] [address] [place] [address] Albumin/Globulin (S) [Mass conc ratio] 0.8 Low 1.1-2.2 [facility] Comment on above: Order Comment: per tejas Kauffman RN Alisha wants us to wait till 0800 to draw labs [id number] 03/09/2023 06:41:32 EDT Performed By: #### 2 [id number], [id number] #### [facility] [address] [place] [address] ALP [Catalytic activity/Vol] 47 Int._Unit/L Normal 21-98 [facility] Comment on above: Order Comment: per tejas Kauffman RN Alisha wants us to wait till 0800 to draw labs [id number] 03/09/2023 06:41:32 EDT Performed By: #### 2 [id number], [id number] #### [facility] [address] [place] [address] ALT No additional P-5'-P [Catalytic activity/Vol] 13 Int._Unit/L Normal 6-46 [facility] Comment on above: Order Comment: per tejas Kauffman RN Alisha wants us to wait till 0800 to draw labs [id number] 03/09/2023 06:41:32 EDT Performed By: #### 2 [id number], [id number] #### [facility] [address] [place] [address] Anion gap [Moles/Vol] 10 mmol/L Normal 6-16 [facility] Comment on above: Order Comment: per tejas Kauffman RN Alisha wants us to wait till 0800 to draw labs [id number] 03/09/2023 06:41:32 EDT Performed By: #### 2 [id number], [id number] #### [facility] [address] [place] [address] AST [Catalytic activity/Vol] 17 Int._Unit/L Normal 5-43 [facility] Comment on above: Order Comment: per tejas Kauffman RN Alisha wants us to wait till 0800 to draw labs [id number] 03/09/2023 06:41:32 EDT Performed By: #### 2 [id number], [id number] #### [facility] [address] [place] [address] Bilirubin [Mass/Vol] 0.3 mg/dL Normal 0.0-1.1 [facility] Comment on above: Order Comment: per tejas Brito wants us to wait till 0800 to draw labs [id number] 03/09/2023 06:41:32 EDT Performed By: #### 2 [id number], [id number] #### [facility] [address] [place] [address] Calcium [Mass/Vol] 9.1 mg/dL Normal 8.9-11.1 [facility] Comment on above: Order Comment: per tejas Conwayfer wants us to wait till 0800 to draw labs [id number] 03/09/2023 06:41:32 EDT Performed By: #### 2 [id number], [id number] #### [facility] [address] [place] [address] Chloride [Moles/Vol] 107 mmol/L Normal 101-111 [facility] Comment on above: Order Comment: per tejas Conwayfer wants us to wait till 0800 to draw labs [id number] 03/09/2023 06:41:32 EDT Performed By: #### 2 [id number], [id number] #### [facility] [address] [place] [address] CO2 [Moles/Vol] 24 mmol/L Normal 21-31 [facility] Comment on above: Order Comment: per tejas Kauffman RN Alisha wants us to wait till 0800 to draw labs [id number] 03/09/2023 06:41:32 EDT Performed By: #### 2 181702, [id number] #### [facility] [address] [place] [address] Creatinine [Mass/Vol] 0.7 mg/dL Normal 0.5-1.3 [facility] Comment on above: Order Comment: per tejas Kauffman RN Alisha wants us to wait till 0800 to draw labs [id number] 03/09/2023 06:41:32 EDT Performed By: #### 2 [id number], [id number] #### [facility] [address] [place] [address] Globulin (S) [Mass/Vol] 4.0 g/dL Normal 1.4-4.0 [facility] Comment on above: Order Comment: per tejas Kauffman RN Alisha wants us to wait till 0800 to draw labs [id number] 03/09/2023 06:41:32 EDT Performed By: #### 2 864267, [id number] #### [facility] [address] [place] [address] Glucose [Mass/Vol] 93 mg/dL Normal 55-199 [facility] Comment on above: Order Comment: per tejas Kauffman RN Alisha wants us to wait till 0800 to draw labs [id number] 03/09/2023 06:41:32 EDT Result Comment: If t his glucose result represents a fasting glucose, interpretation should refer to the following reference range: 55-99 mg/dL Performed By: #### 2 291603, [id number] #### [facility] [address] [place] [address] Potassium [Moles/Vol] 4.0 mmol/L Normal 3.5-5.3 [facility] Comment on above: Order Comment: per tejas Kauffman RN Alisha wants us to wait till 0800 to draw labs [id number] 03/09/2023 06:41:32 EDT Performed By: #### 2 [id number], [id number] #### [facility] [address] [place] [address] Protein [Mass/Vol] 7.1 g/dL Normal 6.0-7.8 [facility] Comment on above: Order Comment: per tejas Kauffman RN Alisha wants us to wait till 0800 to draw labs [id number] 03/09/2023 06:41:32 EDT Performed By: #### 2 [id number], [id number] #### [facility] [address] [place] [address] Sodium [Moles/Vol] 137 mmol/L Normal 135-145 [facility] Comment on above: Order Comment: per tejas Brito wants us to wait till 0800 to draw labs [id number] 03/09/2023 06:41:32 EDT Performed By: #### 2 [id number], [id number] #### [facility] [address] [place] [address] Urea nitrogen [Mass/Vol] 11 mg/dL Normal 5-21 [facility] Comment on above: Order Comment: per tejas Brito wants us to wait till 0800 to draw labs [id number] 03/09/2023 06:41:32 EDT Performed By: #### 2 [id number], [id number] #### [facility] [address] [place] [address] Urea nitrogen/Creatinine [Mass ratio] 16 No Units Normal 10-20 [facility] Comment on above: Order Comment: per tejas Kauffman RN Alisha wants us to wait till 0800 to draw labs [id number] 03/09/2023 06:41:32 EDT Performed By: #### 2 121724, [id number] #### [facility] [address] [place] [address] COAGULATIONOrdered By: Chepe Ragland on 03-09-2023 INR Coag (PPP) [Relative time] 1.0 {INR} Invalid Interpretation Code [facility] Auto Coag PT Coag (PPP) [Time] 10.6 s Normal 9.4 - 1 2.5 second(s) [facility] Auto Coag ECG Pediatricon 03-09-2023 ECG Pediatric The following ED Rev iew was created for ROSE MARY SCHNEIDER: SINUS TACHYCARDIA POSSIBLE LEFT ATRIAL ENLARGEMENT [-0.1mV P WAVE IN V1/V2] NONSPECIFIC T-WAVE ABNORMALITY ABNORMAL RHYTHM ECG Preliminary By: Justice Browne MD 03/07/2023 15:05:51 [employer] has Agreed this ED Review Normal [facility] Insurance Correspondence Off ice03-09-2023 Insurance Correspondence Office [id number]#1.00CD:1 27 Normal [facility] Interdisciplinary Note - Binu e Manageron 03-09-2023 Interdisciplinary Note - Passenger Service Representative Pt is in bed sleeping. According to juwan, pt has not been having SI. Dr Reveles will assess for need of Perdido slip and MHP. Nursing will have to call MHP if needed. Pending SW and Neurology. ANt dc TBD. CRM to follow. Normal [facility] Comment on above: Result Comment: Elec tronically Signed By: Peyton Mccarty\.br\Date and Time Signed: 03/09/23 09:25 EDT Interdisciplinary Note - Mayra singon 03-09-2023 Interdisciplinary Note - Nursing 1405 spoke with [facility] hotline. they requested chart be faxed to them. 1420 chart and pink slip faxed to [facility]. 1436 original fax did not go through. refaxed at this time. 1500 fax did not go trough. re attempted. Normal [facility] Interdisciplinary Note - Soc ial Workeron 03-09-2023 Interdisciplinary Note - Auditing Coder Consult received by SW regarding an intentional acetaminophen overdose / SI . Awaiting MHP consult. [facility]. Normal [facility] Monitor Recordon 03-09-2023 Monitor Record [id number]#[id number]:1 27 [facility] Monitor Record [id number]#[id number]:1 27 [facility] Monitor Record [id number]#[id number]:1 27 [facility] PTon 03-09-2023 INR Coag (PPP) [Relative time] 1.0 {INR} Invalid Interpretation Code [facility] Comment on above: Result Comment: INR results are specifically intended to assess patients stabilized on long-term Anticoagulation therapy suggested INR?s ?Less Intensive Anticoagulation? 2.0 ? 3.0 Conventional Range 3.0 ? 4.5 Performed By: #### 2 [id number], [id number] #### [facility] [address] [place] [address] PT Coag (PPP) [Time] 10.6 second(s) Normal 9.4-12.5 [facility] Comment on above: Result Comment: 15 [...] same coagulation reagent and instrumentation as [facility]. Currently there are no coagulation studies available worldwide for children to 14 days, and no normal ranges. Performed By: #### 2 725359, [id number] #### [facility] [address] [place] [address] Progress Note-Nurseon 2022 Progress Note-Nurse Dr. Eamon marie via Performance Indicator. Patient has PT and CMP 8/7 at 0600. Physician notified of current lab orders and no further orders received at this time. Normal [facility] Progress Note-Nurse Patient is afebrile, VS as documented, and patient in no distress. She denies pain, gi upset, and distress. Safety maintained and supervision continued. Normal [facility] Progress Note-Physicianon Progress Note-Physician Subjective Doing well voicing no complaints overnight or this morning Patient says she is no longer harm to herself or has any suicidal ideation Review of Systems Constitutional: no fever, no chills, no sweats, no weakness Skin: no Jaundice, no rash, no lesions, nopetechiae ENMT: no ear pain, no sore throat, no congestion, no hoarseness Respiratory: no shortness of breath, no cough, no orthopnea, no wheezing Cardiovascular: no chest pain, no palpitations, no edema Gastrointestinal: no nausea, no vomiting, no diarrhea, no GI bleeding Genitourinary: no dysuria, no hematuria, no discharge, no pain Musculoskeletal: no back pain, no trauma Neurologic: no headache, no dizziness, no numbness, no weakness Psychiatric: no sleeping problems, no irritability, no mood swings/depression. Heme/Lymph: no bleeding tendency, no bruising tendency, no petechiae, no swollen nodes Allergy/Immunologic: no seasonal allergies, no food allergies, no recurrent infections, no impaired immunity Additional ROS info: Except as noted in the above Review of Systems and in the History of Present Illness all other systems have been reviewed and are negative or noncontributory. Objective Vitals & Measurements T: 36.9 ?C(Oral) TMIN: 36.6 ?C(Axillary) TMAX: 36.9 ?C(Oral) HR: 90(Monitored) RR: 17 BP: 108/75 SpO2: 97% WT: 112.6 kg Intake & Output This visit (24 hour periods starting at 07:00 EDT) 03/09/23 * 03/08/23 03/07/23 Total Summary Intake mL 100 767.7 2,621.92 Output mL 50 725 -- Fluid Balance 50 42.7 2,621.92 Intake (7) Dextrose 5% in Water, acetylcysteine mL -- -- 1,243.51 Generic Diluent, levetiracetam mL -- 100 -- Oral Intake mL 100 660 450 Sodium Chloride 0.45% intravenous solution 1,000 mL mL -- -- 688.41 Sodium Chloride 0.9% intravenous solution 1,000 mL mL -- 7.2 -- charcoal-sorbitol mL -- -- 240 lorazepam mL -- 0.5 -- Total 100 767.7 2,621.92 Output (1) Urine Voided mL 50 725 -- Total 50 725 -- Counts (1) Urine Count 2 -- 5 * This column has not completed the indicated time period. Physical Exam Constitutional: Awake and alert; oriented x3 with no apparent distress or respiratory distress Head/neck: Neck supple with no palpable lymphadenopathy, bruits or masses; trachea midline Chest/lungs: Clear to auscultation bilaterally no wheezes or rhonchi noted Cardiovascular: Regular rate and rhythm; normal S1-S2 with no murmur; no pitting edema and 2+ pulses bilaterally Gastrointestinal: Soft, nontender, nondistended, positive bowel sounds; obese Neurological: Nonfocal; cranial nerves II through XII are intact Psychological: Pleasant affect Lab Results PT: 10.6 second(s) (03/09/23 07:08:00) INR: 1 (03/09/23 07:08:00) Glucose Lvl: 93 mg/dL (03/09/23 07:08:00) BUN: 11 mg/dL (03/09/23 07:08:00) Creatinine: 0.7 mg/dL (03/09/23 07:08:00) eGFR: 128 mL/min/1.73 m2 (03/09/23 07:08:00) BUN/Creat Ratio: 16 (03/09/23 07:08:00) Sodium Lvl: 137 mmol/L (03/09/23 07:08:00) Potassium Lvl: 4 mmol/L (03/09/23 07:08:00) Chloride: 107 mmol/L (03/09/23 07:08:00) CO2: 24 mmol/L (03/09/23 07:08:00) AGAP: 10 mEq/L (03/09/23 07:08:00) Calcium Lvl: 9.1 mg/dL (03/09/23 07:08:00) Alk Phos: 47 Int._Unit/L (03/09/23 07:08:00) ALT: 13 Int._Unit/L (03/09/23 07:08:00) AST: 17 Int._Unit/L (03/09/23 07:08:00) Total Protein: 7.1 gm/dL (03/09/23 07:08:00) Albumin Lvl: 3.1 gm/dL Low (03/09/23 07:08:00) Globulin: 4 gm/dL (03/09/23 07:08:00) A/G Ratio: 0.8 Low (03/09/23 07:08:00) Bili Total: 0.3 mg/dL (03/09/23 07:08:00) Assessment/Plan 17-year-old female admitted for intentional overdose of [...] lurasidone Continue seizure precautions 7. Obesity (E66.9: Obesi (more content not included)... Normal [facility] Comment on above: Result Comment: Elec tronically Signed By: Lawrence Reveles DO\.br\Date and Time Signed: 03/09/23 14:30 EDT eGFRon 03-09-2023 GFR/1.73 sq M.predicted among non-blacks MDRD (S/P/Bld) [Vol rate/Area] 128 mL/min/1.73 m2 Normal >=59 [facility] Comment on above: Order Comment: Order added by Discern Expert. Result Comment: Aqueduct And Reservoir Keeper marleny kidney disease could be indicated at eGFR's of less than 60 mL/min/1.73m2. Kidney failure is indicated at less than 15 mL/min/1.73m2. Performed By: #### 2 893472, [id number] #### [facility] [address] [place] [address] Acetamnphn Lvlon 03-08-2023 Acetaminophen [Mass/Vol] ug/mL Low 15-30 [facility] Comment on above: Performed By: #### 2 704474, 8157176 #### [facility] [address] [place] [address] Acetaminophen [Mass/Vol] 10 microgram/mL Low 15-30 [facility] Comment on above: Performed By: #### 2 627601, 3077176 #### [facility] [address] [place] [address] BMPon 03-08-2023 Anion gap [Moles/Vol] 13 mmol/L Normal 6-16 [facility] Comment on above: Performed By: #### 2 858959, 7410141, 1428800, 77279211, 42650822 ####[facility] [address] [place] [address] Calcium [Mass/Vol] 9.1 mg/dL Normal 8.9-11.1 [facility] Comment on above: Performed By: #### 2 676140, 9183153, 0519480, 33758505, 44666266 ####[facility] [address] [place] [address] Chloride [Moles/Vol] 105 mmol/L Normal 101-111 [facility] Comment on above: Performed By: #### 2 147040, 3109820, 0022077, 62854550, 32416584 ####[facility] [address] [place] [address] CO2 [Moles/Vol] 23 mmol/L Normal 21-31 [facility] Comment on above: Performed By: #### 2 801197, 5846761, 1296941, 14666959, 18539968 ####[facility] [address] [place] [address] Creatinine [Mass/Vol] 0.8 mg/dL Normal 0.5-1.3 [facility] Comment on above: Performed By: #### 2 892230, 3504225, 1007707, 62523899, 42315402 ####[facility] [address] [place] [address] Glucose [Mass/Vol] 103 mg/dL Normal 55-199 [facility] Comment on above: Result Comment: If t his glucose result represents a fasting glucose, interpretation should refer to the following reference range: 55-99 mg/dL Performed By: #### 2 981262, 0777545, 9274305, 86169042, 78286032 ####[facility] [address] [place] [address] Potassium [Moles/Vol] 3.3 mmol/L Low 3.5-5.3 [facility] Comment on above: Performed By: #### 2 552824, 6913976, 1828989, 58547885, 26370107 ####[facility] [address] [place] [address] Sodium [Moles/Vol] 138 mmol/L Normal 135-145 [facility] Comment on above: Performed By: #### 2 998631, 0079760, 5508358, 38602225, 74885055 ####[facility] [address] [place] [address] Urea nitrogen [Mass/Vol] 7 mg/dL Normal 5-21 [facility] Comment on above: Performed By: #### 2 190688, 4331069, 2778508, 57392156, 85282879 ####[facility] [address] [place] [address] Urea nitrogen/Creatinine [Mass ratio] 9 No Units Low 10-20 [facility] Comment on above: Performed By: #### 2 497250, 7451305, 8845023, 48936794, 72120538 ####[facility] [address] [place] [address] CHEMISTRYOrdered By: SYSTEM SYSTEM on 03-08-2023 Albumin [Mass/Vol] 3.0 g/dL Low 3.3 - 5.0 gm/dL [facility] Remisol Albumin/Globulin [Mass ratio] 0.7 {ratio} Low 1.1 - 2.2 [facility] ALP [Catalytic activity/Vol] 46 [iU]/d Normal [...] 109 mL/min/1.73 m2 Normal >=59mL/min/ 1.73 m2 FT Chem S Globulin (S) [Mass/Vol] 4.2 g/dL [...] 10 microgram/mL Low 15 - 30 mcg/mL [facility] Remisol Bilirubin.direct [Mass/Vol] mg/dL Normal 0.1 - 0.4 mg/dL [facility] Remisol Bilirubin.indirect [Mass or moles/Vol] Unable to Calculate mg/dL Invalid Interpretation Code 0.1 - 0.9 mg/dL [facility] Remisol COAGULATIONOrdered By: Paris Newby on 03-08-2023 aPTT Coag (PPP) [Time] 32.2 s Normal 25.1 - 36.5 second(s) [facility] Auto Coag INR Coag (PPP) [Relative time] 1.1 {INR} Invalid Interpretation Code [facility] Auto Coag PT Coag (PPP) [Time] 12.1 s Normal 9.4 - 1 2.5 second(s) [facility] Auto Coag GetWell Education Videoon GetWell Education Video Avoiding Infections in the Hospital Yes Patient Normal [facility] Hep Func Panelon 03-08-2023 Bilirubin.indirect [Mass or moles/Vol] UTC Abnormal 0.1-0.9 [facility] Comment on above: Result Comment: Resu lt verified by Discern Rule. Performed result UTC (Unable to Calculate) was sent as an Alpha code due the inability to calculate a valid numeric value. Performed By: #### 2 [id number] #### [facility] [address] [place] [address] Albumin [Mass/Vol] 3.0 g/dL Low 3.3-5.0 [facility] Comment on above: Performed By: #### 2 469896 #### [facility] [address] [place] [address] Albumin/Globulin (S) [Mass conc ratio] 0.7 Low 1.1-2.2 [facility] Comment on above: Performed By: #### 2 308804 #### [facility] [address] [place] [address] ALP [Catalytic activity/Vol] 46 Int._Unit/L Normal 21-98 [facility] Comment on above: Performed By: #### 2 618956 #### [facility] [address] [place] [address] ALT No additional P-5'-P [Catalytic activity/Vol] 14 Int._Unit/L Normal 6-46 [facility] Comment on above: Performed By: #### 2 204947 #### [facility] [address] [place] [address] AST [Catalytic activity/Vol] 17 Int._Unit/L Normal 5-43 [facility] Comment on above: Performed By: #### 2 449889 #### [facility] [address] [place] [address] Bilirubin [Mass/Vol] 0.3 mg/dL Normal 0.0-1.1 [facility] Comment on above: Performed By: #### 2 501424 #### [facility] [address] [place] [address] Globulin (S) [Mass/Vol] 4.2 g/dL High 1.4-4.0 [facility] Comment on above: Performed By: #### 2 251787 #### [facility] [address] [place] [address] Protein [Mass/Vol] 7.2 g/dL Normal 6.0-7.8 [facility] Comment on above: Performed By: #### 2 213516 #### [facility] [address] [place] [address] Bilirubin.direct [Mass/Vol] mg/dL Normal 0.1-0.4 [facility] Comment on above: Performed By: #### 2 160180 #### [facility] [address] [place] [address] Bilirubin.indirect [Mass or moles/Vol] UTC Abnormal 0.1-0.9 [facility] Comment on above: Result Comment: Resu lt verified by Discern Rule. Performed result UTC (Unable to Calculate) was sent as an Alpha code due the inability to calculate a valid numeric value. Performed By: #### 2 344199, 6005780, 7382244, 89252970, 17880088 ####[facility] [address] [place] [address] Albumin [Mass/Vol] 3.0 g/dL Low 3.3-5.0 [facility] Comment on above: Performed By: #### 2 554003, 4391379, 5119521, 75611142, 40943286 ####[facility] [address] [place] [address] Albumin/Globulin (S) [Mass conc ratio] 0.7 Low 1.1-2.2 [facility] Comment on above: Performed By: #### 2 938666, 9285325, 8619139, 12572444, 87801899 ####[facility] [address] [place] [address] ALP [Catalytic activity/Vol] 42 Int._Unit/L Normal 21-98 [facility] Comment on above: Performed By: #### 2 040298, 8163920, 2531610, 40705374, 14338468 ####[facility] [address] [place] [address] ALT No additional P-5'-P [Catalytic activity/Vol] 12 Int._Unit/L Normal 6-46 [facility] Comment on above: Performed By: #### 2 996021, 1577602, 3803229, 00967873, 53334116 ####[address] [place] [address] AST [Catalytic activity/Vol] 13 Int._Unit/L Normal 5-43 [facility] Comment on above: Performed By: #### 2 160528, 7249494, 2580927, 70028036, 16304985 ####[facility] [address] [place] [address] Bilirubin [Mass/Vol] 0.4 mg/dL Normal 0.0-1.1 [facility] Comment on above: Performed By: #### 2 835661, 9065062, 4571366, 00223103, 48496161 ####[address] [place] [address] Globulin (S) [Mass/Vol] 4.2 g/dL High 1.4-4.0 [facility] Comment on above: Performed By: #### 2 853574, 9269976, 7149456, 64580084, 44213739 ####[facility] [address] [place] [address] Protein [Mass/Vol] 7.2 g/dL Normal 6.0-7.8 [facility] Comment on above: Performed By: #### 2 051233, 6719220, 7662674, 69622471, 29288614 ####[facility] [address] [place] [address] Bilirubin.direct [Mass/Vol] mg/dL Normal 0.1-0.4 [facility] Comment on above: Performed By: #### 2 668893, 0354129, 9135100, 27360917, 22420221 ####[facility] [address] [place] [address] Bilirubin.indirect [Mass or moles/Vol] UTC Abnormal 0.1-0.9 [facility] Comment on above: Result Comment: Resu lt verified by Discern Rule. Performed result UTC (Unable to Calculate) was sent as an Alpha code due the inability to calculate a valid numeric value. Performed By: #### 2 266761, 3429366 #### [facility] [address] [place] [address] Albumin [Mass/Vol] 2.9 g/dL Low 3.3-5.0 [facility] Comment on above: Performed By: #### 2 188081, 0674351 #### [facility] [address] [place] [address] Albumin/Globulin (S) [Mass conc ratio] 0.7 Low 1.1-2.2 [facility] Comment on above: Performed By: #### 2 456566, 8677804 #### [facility] [address] [place] [address] ALP [Catalytic activity/Vol] 40 Int._Unit/L Normal 21-98 [facility] Comment on above: Performed By: #### 2 623740, 9222872 #### [facility] [address] [place] [address] ALT No additional P-5'-P [Catalytic activity/Vol] 11 Int._Unit/L Normal 6-46 [facility] Comment on above: Performed By: #### 2 986609, 8404409 #### [facility] [address] [place] [address] AST [Catalytic activity/Vol] 16 Int._Unit/L Normal 5-43 [facility] Comment on above: Performed By: #### 2 569053, 5896753 #### [facility] [address] [place] [address] Bilirubin [Mass/Vol] 0.3 mg/dL Normal 0.0-1.1 [facility] Comment on above: Performed By: #### 2 149590, 8380806 #### [facility] [address] [place] [address] Globulin (S) [Mass/Vol] 4.0 g/dL Normal 1.4-4.0 [facility] Comment on above: Performed By: #### 2 880068, 3872618 #### [facility] [address] [place] [address] Protein [Mass/Vol] 6.9 g/dL Normal 6.0-7.8 [facility] Comment on above: Performed By: #### 2 220644, 5783290 #### [facility] [address] [place] [address] Bilirubin.direct [Mass/Vol] mg/dL Normal 0.1-0.4 [facility] Comment on above: Performed By: #### 2 155944, 3630017 #### [facility] [address] [place] [address] Interdisciplinary Note - Binu e Manageron 03-08-2023 Interdisciplinary Note - Passenger Service Representative CRM spoke with patient and mother in room. Patient was previous rounded on by Dr Retana today, not medically ready for discharge. Patient will be pink slipped tomorrow and MHP will need to see. Patient did an intentional over dose. Mother states she has done similar in the past and has had INPT Psych admits in the past. Patient is alert and oriented. Whiteboard updated and CRM contact # provided. Patient verified PCP, insurance and DME. Patient is from home with mother and she will transport at discharge. Patient does admit to taking pills with intent to harm self. discussed dc plan is pending P eval and recommendations. Patient has a sitter in the room. Normal [facility] Comment on above: Result Comment: Elec tronically Signed By: Don SHER, Antoinette\.br\Date and Time Signed: 03/08/23 12:53 EDT Monitor Recordon 03-08-2023 Monitor Record [id number]:1 27 Normal [facility] Monitor Record [id number]#[id number]:1 27 Normal [facility] Monitor Record [id number]#1.00CD:1 27 Normal [facility] PT & PTTon 03-08-2023 aPTT Coag (PPP) [Time] 32.2 second(s) Normal 25.1-36.5 [facility] Comment on above: Result Comment: Para [...] same coagulation reagent and instrumentation as [facility]. Currently there are no coagulation studies available worldwide for children to 14 days, and no normal ranges. Heparin therapeutic range (represented by Anti-Factor Xa activity of 0.2 - 0.4 U/mL) corresponds to PTT of 56.6 - 109.0 sec. Performed By: #### 2 771166, 5814256, 7508522, 18851513, 92455174 ####[facility] [address] [place] [address] INR Coag (PPP) [Relative time] 1.1 {INR} Invalid Interpretation Code [facility] Comment on above: Result Comment: INR results are specifically intended to assess patients stabilized on long-term Anticoagulation therapy suggested INR?s ?Less Intensive Anticoagulation? 2.0 ? 3.0 Conventional Range 3.0 ? 4.5 Performed By: #### 2 939699, 4463207, 1473491, 55756644, 21001906 ####[facility] [address] [place] [address] PT Coag (PPP) [Time] 12.1 second(s) Normal 9.4-12.5 [facility] Comment on above: Result Comment: 15 [...] same coagulation reagent and instrumentation as [facility]. Currently there are no coagulation studies available worldwide for children to 14 days, and no normal ranges. Performed By: #### 2 353947, 0133231, 6174113, 58781478, 97363840 ####[facility] [address] [place] [address] Progress Note-Nurseon 2022 Progress Note-Nurse Patient assisted to BSC and voids a small amount of clear yellow urine. Patient also ate a 6 inch sub and tolerated it well. She denies GI upset and tolerated it well. Observation continued and safety maintained. Normal [facility] Progress Note-Nurse Report taken and bed side handoff complete. Patient assisted to the BSC and voids 200 ml of clear yellow urine. Patient is alert and oriented x4, denies pain, nausea, dizziness, GI upset, and dyspnea. She is calm, pleasant, appropriate, and cooperative at this time. Room cleared of all hazards and RN at the bedside within reach and in patient in constant view. Patient denies needs at this time. Seizure pads intact and safety maintained. Normal [facility] Progress Note-Nurse 1340: This RN contac gamaliel the provider and requested they come to the room as the patients eyes were fluttering. Patient was A&Ox4, and responded appropriately to questions while her eyes were fluttering. She could bring her eyes back to focus when asked. JOON Suarez in room to see patient. No further recommendations at this time. Mother present in room, mother arrived approximately 30 minutes prior to this. 1352: Pt. laying back in bed, eyes flutter and not responding to verbal stimuli. Approximately 30 seconds later patient is awake and talking easily with this RN and other staff members. Physician aware. 1355: Patient mother informed this RN she is leaving the floor and states, sometimes Rose Mary acts out for attention so I am going home. . 1400: JOON Suarez back to room to see patient. patient is sitting upright in bed, feeding herself macaroni and cheese while carrying on easy conversation with Dori echeverria. Patient resumed normal behavior AFTER MOTHER LEFT THE ROOM. VSS, A&Ox4, no complaints at this time. Per physician pt. will remain on regular nursing floor. Normal [facility] Progress Note-Physicianon Progress Note-Physician Assessment/Plan 17-year-old female with history of seizure disorder, anxiety, depression, seasonal allergies presented to the emergency room with complaints of dizziness, sleepiness, headache after she took about 100 pills of Tylenol PM in a suicide attempt and admitted with acetaminophen overdose, suicidal attempt, hypokalemia 1. Intentional acetaminophen overdose (T39.1X2A: Poisoning by 4-Aminophenol derivatives, intentional self-harm, initial encounter) Intentional drug overdose with Tylenol/diphenhydramine.? Secondary to suicide ideation/attempt. ticket worker evaluation. Acetaminophen level ekta to 40 but trended down to undetectable. Treating with IVF Thursday. LFTs within normal limit. Repeat LFTs and PT/INR in AM. Ordered: Basic Metabolic Panel Comprehensive Metabolic Panel Consult to Community Product Specialist eGFR Extra Lav Tube Hepatic Function Panel PT [facility] Care/Day Moderate 35 Minutes 90213 2. Suicidal ideation (R45.851: Suicidal ideations) Supportive care. ticket worker evaluation. Mental health evaluation in a.m. once medically stable. Ordered: Consult to Community Product Specialist [facility] Care/Day Moderate 35 Minutes 09722 3. Antihistamines overdose (T45.0X1A: Poisoning by antiallergic and antiemetic drugs, accidental (unintentional), initial encounter) Treated with charcoal. Respiratory status and circulation currently stable. Treated with IV fluid. Bladder scan?so far not retaining urine. Ordered: [facility] Care/Day Moderate 35 Minutes 65312 4. Hypokalemia (E87.6: Hypokalemia) Secondary to gastrointestinal loss and IV fluid. We will replace orally. Ordered: potassium chloride, 40 mEq = 2 tab(s), Tab-ER, Oral, BID for 2 dose(s), Stop date 03/09/23 8:59:00 EDT, Routine, Start date 03/08/23 9:00:00 EDT, 03/08/23 8:36:00 EDT Comprehensive Metabolic Panel [facility] Care/Day Moderate 35 Minutes 64518 5. Depression (F32.A: Depression, unspecified) On fluoxetine. Ordered: [facility] Care/Day Moderate 35 Minutes 17216 6. Seizure (R56.9: Unspecified convulsions) No reported seizure. On Lamictal and Keppra. Ordered: lorazepam, 1 mg = 0.5 mL, Injection, IV Push, QID PRN Seizure, Routine, Start date 03/07/23 18:04:00 EDT 7. Obesity (E66.9: Obesity, unspecified) Recommend therapeutic lifestyle modification changes. 8. On deep vein thrombosis (DVT) prophylaxis (Z79.899: Other usp (current) drug therapy) SCDs. Disposition: Pending mental health evaluation in AM. I discussed the diagnosis and plan of care with the patient at the bedside. Moderate level of MDM based on addressing above issues. This documentation was transcribed using voice recognition software. Several attempts were made to ensure accuracy. However inadvertent computerized ndt inspector errors may be present. Jennifer Retana. Hospitalist. [...] Precautions Up ad Dionne Vital Signs Weight Subjective Seen and examined. Doing well this morning. Denies any suicidal thoughts. Objective Vitals & Measurements T: 36.8 ?C(Axillary) TMIN: 36.2 ?C(Oral) TMAX: 37.0 ?C(Oral) HR: 82(Monitored) RR: 18 BP: 123/84 SpO2: 98% HT: 165.1 cm WT: 145.7 kg Intake & Output This visit (24 hour periods starting at 07:00 EDT) 03/08/23 * 03/07/23 03/06/23 Total Summary Intake mL -- 2,621.92 -- Output mL -- -- -- Fluid Balance -- 2,621.92 -- Intake (4) Dextrose 5% in Water, acetylcysteine mL -- 1,243.51 -- Oral Intake mL -- 450 -- Sodium Chloride 0.45% intravenous solution 1,000 mL mL -- 688.41 -- charco (more content not included)... Normal [facility] Comment on above: Result Comment: Elec tronically Signed By: DEBBIE MARCANO, Jennifer\.br\Date and Time Signed: 03/08/23 08:38 EDT Reference Laboratory Testing Ordered By: Mick DomainUser on 03-08-2023 lamoTRIgine [Mass/Vol] microgram/mL Low 2.0-2 0.0mcg /mL [facility] SendOutsSS Comment on above: Result Comment: Dete ction Limit = 1.0 Performed at: [facility] [id number] MD Jose Armando Feliz levETIRAcetam [Mass/Vol] 12.4 microgram/mL Invalid Interpretation Code 10.0-40.0mc g/mL [facility] Comment on above: Result Comment: Perf ormed at: [facility] [address] [id number] MD Jose Armando Feliz eGFRon 03-08-2023 GFR/1.73 sq M.predicted among non-blacks MDRD (S/P/Bld) [Vol rate/Area] 109 mL/min/1.73 m2 Normal >=59 [facility] Comment on above: Order Comment: Order added by Discern Expert. Result Comment: Aqueduct And Reservoir Keeper marleny kidney disease could be indicated at eGFR's of less than 60 mL/min/1.73m2. Kidney failure is indicated at less than 15 mL/min/1.73m2. Performed By: #### 2 952570, 5098106, 2060966, 70527291, 64487786 ####[facility] [address] [place] [address] Acetamnphn Lvlon 03-07-2023 Acetaminophen [Mass/Vol] 40 microgram/mL Abnormal 15-30 [facility] Comment on above: Result Comment: Crit ical Result verified by repeat analysis\Critical Result S_ACTM:40.1 Called to ALLEN ZENG AT by SANIYA NEWBY And Read Back For Confirmation at: 03/07/2023 18:17:47 Performed By: #### 2 681239, 3118828 #### [facility] [address] [place] [address] Acetaminophen [Mass/Vol] 35 microgram/mL High 15-30 [facility] Comment on above: Performed By: #### 1 8075322, 1277635, 1683383, 0901918, 22934271, 4693982, 6323487, 6962031, 4799348 #### [facility] [address] [place] [address] Auto Diffon 03-07-2023 Basophils/100 WBC (Bld) 0.5 % Normal 0.0-2.0 [facility] Comment on above: Order Comment: Order Added by Discern Expert. Performed By: #### 1 5852784, 5818098, 3033294, 4525738, 94265335, 3596624, 7905041, 9872067, 3336216 ####[facility] [address] [place] [address] Basophils/Leukocytes Auto (Bld) [Pure # fraction] 0.0 E9/L Normal 0.0-0.2 [facility] Comment on above: Order Comment: Order Added by Discern Expert. Performed By: #### 1 8834479, 5064102, 7782221, 8391213, 41734032, 2978641, 7013131, 0513680, 8024160 ####[facility] [address] [place] [address] Eosinophils/100 WBC (Bld) 1.9 % Normal 0.0-8.0 [facility] Comment on above: Order Comment: Order Added by Discern Expert. Performed By: #### 1 9439193, 2973574, 8150258, 9027785, 41106978, 3238193, 5893590, 9504845, 2214057 ####[facility] [address] [place] [address] Eosinophils/Leukocytes Auto (Bld) [Pure # fraction] 0.1 E9/L Normal 0.0-0.5 [facility] Comment on above: Order Comment: Order Added by Discern Expert. Performed By: #### 1 5360456, 1546770, 2878147, 3456634, 43966454, 6260608, 2925229, 7343834, 9209600 ####[address] [place] [address] Lymphocytes/100 WBC (Bld) 28.7 % Normal 14.0-50.0 [facility] Comment on above: Order Comment: Order Added by Discern Expert. Performed By: #### 1 [id number], 8680920, 8784907, 4776176, 67212016, 4211051, 0656075, 4070912, 8009646 ####[address] [address] Lymphocytes/Leukocytes Auto (Bld) [Pure # fraction] 2.0 E9/L Normal 1.0-4.0 [facility] Comment on above: Order Comment: Order Added by Samantha Expert. Performed By: #### 1 [id number], 0480896, 5207902, 8337932, 08873789, 6385250, 5545370, 8091710, 0474724 ####[address] [address] Monocytes/100 WBC (Bld) 8.6 % Normal 4.0-14.0 [facility] Comment on above: Order Comment: Order Added by Discern Expert. Performed By: #### 1 1961605, 5690955, 2626880, 1863276, 73491208, 9452275, 3898774, 1555443, 8082576 ####[address] [address] Monocytes/Leukocytes Auto (Bld) [Pure # fraction] 0.6 E9/L Normal 0.2-1.0 [facility] Comment on above: Order Comment: Order Added by Samantha Expert. Performed By: #### 1 1375204, 7237361, 9007368, 3844392, 62918806, 0762102, 8704348, 6160974, 0874439 ####[facility] [address] [place] [address] Neutrophils/100 WBC (Bld) 60.3 % Normal 36.0-75.0 [facility] Comment on above: Order Comment: Order Added by Discern Expert. Performed By: #### 1 3456845, 6325336, 8401952, 4694092, 64800701, 6906119, 0254942, 6214209, 3937061 ####[address] [place] [address] Neutrophils/Leukocytes Auto (Bld) [Pure # fraction] 4.1 E9/L Normal 2.0-7.5 [facility] Comment on above: Order Comment: Order Added by Discern Expert. Performed By: #### 1 9297929, 7597131, 7916112, 5522668, 34543104, 0407816, 1924603, 4523642, 4446284 ####[address] [address] B hCG Qualon 03-07-2023 Beta hCG Ql Negative Normal [facility] Comment on above: Performed By: #### 1 1738606, 7344471, 4524965, 8639400, 21855149, 9983383, 9880542, 7214958, 0369827 ####[address] [place] [address] BMPon 03-07-2023 Creatinine [Mass/Vol] 0.9 mg/dL Normal 0.5-1.3 [facility] Comment on above: Performed By: #### 1 8593451, 7421945, 4927384, 4891206, 54516755, 8178833, 8944243, 1529972, 7566075 ####[address] [place] [address] Urea nitrogen [Mass/Vol] 9 mg/dL Normal 5-21 [facility] Comment on above: Performed By: #### 1 0705516, 1349655, 3330658, 2341132, 83885919, 4989484, 3564278, 2149868, 1109371 ####[facility] [address] [place] [address] Urea nitrogen/Creatinine [Mass ratio] 10 No Units Normal 10-20 [facility] Comment on above: Performed By: #### 1 7190256, 9642457, 3502194, 2095378, 44550321, 6471641, 0141640, 1682981, 2649620 ####[facility] [address] [place] [address] Anion gap [Moles/Vol] 14 mmol/L Normal 6-16 [facility] Comment on above: Performed By: #### 1 6098835, 4530692, 0744559, 4521519, 49827544, 1227555, 9436027, 5220346, 0412849 ####[facility] [address] [place] [address] Calcium [Mass/Vol] 9.4 mg/dL Normal 8.9-11.1 [facility] Comment on above: Performed By: #### 1 4246358, 4266711, 0247810, 9601961, 66096834, 5072676, 9015440, 8809050, 0656513 ####[facility] [address] [place] [address] Chloride [Moles/Vol] 103 mmol/L Normal 101-111 [facility] Comment on above: Performed By: #### 1 1142914, 9468320, 1500669, 1079489, 98279363, 6772464, 4653618, 9340615, 5713680 ####[facility] [address] [place] [address] CO2 [Moles/Vol] 24 mmol/L Normal 21-31 [facility] Comment on above: Performed By: #### 1 1204130, 4232877, 2027029, 2148989, 88431257, 8592219, 8748985, 7420283, 0158465 ####[facility] [address] [place] [address] Glucose [Mass/Vol] 95 mg/dL Normal 55-199 [facility] Comment on above: Result Comment: If t his glucose result represents a fasting glucose, interpretation should refer to the following reference range: 55-99 mg/dL Performed By: #### 1 9888094, 0982546, 3456822, 7454709, 53923692, 6992265, 7554482, 3905187, 4267607 ####[facility] [address] [place] [address] Potassium [Moles/Vol] 3.6 mmol/L Normal 3.5-5.3 [facility] Comment on above: Performed By: #### 1 9334497, 1780495, 7924359, 7013419, 79433820, 6195441, 8596763, 5990923, 0030417 ####[facility] [address] [place] [address] Sodium [Moles/Vol] 137 mmol/L Normal 135-145 [facility] Comment on above: Performed By: #### 1 9172806, 1706371, 2169717, 8319134, 52596955, 3862018, 4039320, 5162187, 1082243 ####[facility] [address] [place] [address] CBC w/ Auto Diffon 3 Erythrocyte distribution width (RBC) [Ratio] 14.0 % Normal 10.9-14.2 [facility] Comment on above: Performed By: #### 1 9578172, 4648230, 6307620, 5494476, 25849161, 5028715, 6291217, 0541824, 0926996 ####[facility] [address] [place] [address] Hematocrit (Bld) [Volume fraction] 37.9 % Normal 34.0-46.0 [facility] Comment on above: Performed By: #### 1 8170336, 3016554, 9603477, 0203957, 93089496, 8816693, 5411716, 9981019, 6121101 ####[facility] [address] [place] [address] Hemoglobin (Bld) [Mass/Vol] 12.6 g/dL Normal 12.0-16.0 [facility] Comment on above: Performed By: #### 1 6395331, 5852678, 3314016, 1756558, 16908835, 9855805, 3789816, 3520532, 3606599 ####[facility] [address] [place] [address] MCH (RBC) [Entitic mass] 28.0 pg Normal 27.0-34.0 [facility] Comment on above: Performed By: #### 1 2425613, 9117036, 4728029, 2541299, 11388174, 3230984, 1597584, 1481693, 8122467 ####[address] [address] MCHC (RBC) [Mass/Vol] 33.3 g/dL Normal 31.4-36.0 [facility] Comment on above: Performed By: #### 1 9674242, 6220399, 2499524, 3711307, 41912590, 4992767, 7258874, 3969427, 0141263 ####[address] [address] MCV (RBC) [Entitic vol] 84.0 fL Normal 80.0-100.0 [facility] Comment on above: Performed By: #### 1 5493941, 2304262, 5207655, 4693229, 40131384, 5091438, 0802352, 3089904, 7773813 ####[address] [address] Platelet mean volume (Bld) [Entitic vol] 7.9 fL Normal 6.4-10.8 [facility] Comment on above: Performed By: #### 1 2092034, 8248682, 8003489, 4782249, 48156130, 0257127, 5699425, 5301908, 7833955 ####[address] [address] Platelets (Bld) [#/Vol] 442.0 E9/L Normal 150.0-500.0 [facility] Comment on above: Performed By: #### 1 7088901, 3600299, 9919863, 7925252, 80075910, 1580166, 7754394, 7519547, 8991174 ####[facility] [address] [place] [address] RBC (Bld) [#/Vol] 4.5 E12/L Normal 4.3-5.9 [facility] Comment on above: Performed By: #### 1 1893946, 8407214, 5862366, 6164448, 77988254, 7820319, 4672475, 6757637, 3438683 ####[facility] [address] [place] [address] WBC corrected for nucl RBC Auto (Bld) [#/Vol] 6.8 E9/L Normal 4.0-11.0 [facility] Comment on above: Performed By: #### 1 2279342, 2798109, 8325993, 9109203, 33997829, 5053334, 4590598, 2702602, 9485640 ####[facility] [address] CHEMISTRYOrdered By: Debby Cleveland on 03-07-2023 Acetaminophen [...] Normal Negative [facility] Remisol Consent for Treatmenton 0 Consent for Treatment [id number] Normal [facility] ED Clinical Summaryon 2022 ED Clinical Summary (Inserted Image. Nida ble to display) [address] [place] [id number] ED Clinical Summary Person Information Name: ROSE MARY SCHNEIDER/New_Lenny Age: 17 Years : 2005 Sex: Female Language: Honduran PCP: Claudia Ellington MD Marital Status: Single Phone: [phone] Visit Id: Visit Reason: Suicidal ideation; Intentional ingestion - overdose; SUICIDAL IDEATION Speciality: Acuity: 1 Enc Type: Observation Med Service: Emergency Arrival: 03/07/2023 14:06:45 Discharge: LOS: 000 04:36 Checkin: 03/07/2023 14:06:45 Checkout: 03/07/2023 18:42:28 Dispo Type: Admitted as IP to this [facility] EVENTS: Event Name Event Status Request Date/Time Start Date/Time Complete Date/Time Arrive Complete 03/07/2023 14:06:45 03/07/2023 14:06:45 03/07/2023 14:06:45 Document Home Meds Request 03/07/2023 14:06:45 Triage Complete 03/07/2023 14:06:45 03/07/2023 14:14:53 03/07/2023 14:14:53 Bed Assign Complete 03/07/2023 14:10:03 03/07/2023 14:10:03 03/07/2023 14:10:03 Dr Exam Complete 03/07/2023 14:10:03 03/07/2023 14:13:40 03/07/2023 14:13:40 RN Exam Complete 03/07/2023 14:10:03 03/07/2023 14:55:19 03/07/2023 14:55:19 Registration Complete 03/07/2023 14:11:50 03/07/2023 14:11:50 03/07/2023 14:11:50 Reg Complete Request 03/07/2023 14:11:50 Reg Bed Request Complete 03/07/2023 14:11:50 03/07/2023 14:11:50 03/07/2023 14:11:50 Registration Complete 03/07/2023 14:13:40 03/07/2023 17:49:20 03/07/2023 17:49:20 Meds Admin Request 03/07/2023 14:25:42 Patient Care Request 03/07/2023 14:25:42 RT Request 03/07/2023 14:25:42 Meds Admin Complete 03/07/2023 14:32:16 03/07/2023 16:12:41 Meds Admin Complete 03/07/2023 14:34:51 03/07/2023 15:19:55 Pending Labs Complete 03/07/2023 14:34:51 03/07/2023 15:58:20 Lab Complete 03/07/2023 14:34:51 03/07/2023 15:58:20 Urine Collect Complete 03/07/2023 14:34:51 03/07/2023 15:58:20 Patient Care Request 03/07/2023 14:34:51 X-Ray Complete 03/07/2023 14:34:51 03/07/2023 14:46:22 03/07/2023 14:48:19 RT Request 03/07/2023 14:34:51 EKG Complete 03/07/2023 14:34:51 03/07/2023 14:50:14 Meds Admin Cancel 03/07/2023 14:38:51 03/07/2023 15:19:55 Pending Labs Complete 03/07/2023 14:43:21 03/07/2023 14:43:21 03/07/2023 15:20:00 Lab Complete 03/07/2023 14:43:21 03/07/2023 14:43:21 03/07/2023 15:20:00 Wet Read Request 03/07/2023 14:48:19 Pending Labs Complete 03/07/2023 15:14:19 03/07/2023 15:14:19 03/07/2023 15:14:26 Lab Complete 03/07/2023 15:14:19 03/07/2023 15:14:19 03/07/2023 15:14:26 Pending Labs Complete 03/07/2023 16:00:08 03/07/2023 18:26:28 Lab Complete 03/07/2023 16:00:08 03/07/2023 18:26:28 Consult Request 03/07/2023 17:43:13 Hospitalist Consult Request 03/07/2023 17:43:13 Bed Request Request 03/07/2023 17:44:06 Reg Bed Request Complete 03/07/2023 17:44:06 03/07/2023 17:49:20 03/07/2023 17:49:20 Admit Request 03/07/2023 17:44:06 Patient Care Request 03/07/2023 17:49:21 Patient Care Request 03/07/2023 17:49:21 Patient Care Request 03/07/2023 17:49:21 Patient Care Request 03/07/2023 17:49:21 Pending Labs Request 03/07/2023 17:56:33 Lab Request 03/07/2023 17:56:33 Consult Request 03/07/2023 18:03:55 Patient Care Request 03/07/2023 18:03:55 Meds Admin Request 03/07/2023 18:03:55 RT Request 03/07/2023 18:03:55 Meds Admin Request 03/07/2023 18:05:01 Meds Admin Request 03/07/2023 18:11:05 Patient Care Request 03/07/2023 18:11:05 RT Request 03/07/2023 18:11:05 Pending Labs Request 03/07/2023 18:11:22 Pending Labs Request 03/07/2023 18:20:37 Lab Request 03/07/2023 18:20:37 Meds Admin Request 03/07/2023 18:41:27 Inpatient Bed Ready Complete 03/07/2023 18:42:28 03/07/2023 18:42:28 03/07/2023 18:42:28 ADDRESS: [address] [place] [id number] PHYS DOC NOTES: MEDICAL INFORMATION: Prescriptions Given: Medications to Continue with No Changes Other Medications ethinyl estradiol-norethindrone (08/22 oral tablet) 28 EA, TAKE 1 TABLET BY MOUTH EVERY DAY. fluoxetine (FLUoxetine 40 mg Cap) levetiracetam (Keppra) 2 times a day. lurasidone (lurasidone 60 mg oral tablet) 30 EA, TAKE 1 TABLET BY ORAL ROUTE 1 TIME PER DAY WITH FOOD (AT LEAST 350 CALORIES). melatonin-pyridoxine (melatonin-pyridoxine 3 mg-10 mg oral tablet, extended release) 30 EA, TAKE 1 TABLET BY ORAL ROUTE PER AT BEDTIME NEEDED FOR INSOMNIA. PATIENT EDUCATION INFORMATION: Instructions: Follow up: DIAGNOSIS: 1:Intentional acetaminophen overdose; 2:Suicidal ideation; 3:Antihistamines overdose; 4:Depression; 5:Seizure; 6:Obesity; 7:On deep vein thrombosis (DVT) prophylaxis [facility] ED Note-Physicianon 03-07-20 ED Note-Physician Basic Information Time Seen: Justice Browne MD 03/07/2023 14:13 Chief Complaint patient c/o dizziness, lethargy and LALA after intentionally taking an entire bottle of Tylenol PM- roughly 100 tablets (50,000 mg of tylenol and 2500 of benadryl). patient states her boyfriend recently broke up with her and she has been having SI History of Present Illness 17-year-old female with a history of depression and bipolar disorder presents after deliberate ingestion of Tylenol PM. She states that between 130 and 1:45 PM today she took the entire bottle. The bottle is listed as 100 tablets of 500 mg Tylenol with 25 mg Benadryl. Patient's only complaint at this point is feeling slightly dizzy. She denies any change in eyesight. She denies any nausea or abdominal pain. Patient has attempted suicide in the past. She was last hospitalized in October. She states she is on a control pill. She denies any illegal drug use. She has had no previous abdominal surgery. A 10 point review of systems is negative except as noted above. Medical and Surgical History: Reviewed and noted Social history: Lives at home Tobacco: Denies Physical Exam Vitals & Measurements T: 36.8 ?C(Oral) HR: 96(Monitored) RR: 16 BP: 117/70 SpO2: 98% HT: 165 cm WT: 115.4 kg BMI: 42.39 This is a overweight 17-year-old female she is awake attentive skin is warm and dry color is pink on room air. The pupils are 3 mm and equal. Extraocular muscles are intact. There is no facial flushing. The oral mucosa is moist. The heart is regular it is slightly accelerated. There is no murmur gallop or rub. Lungs are clear to auscultation. The abdomen is obese soft and nontender. Medical Decision Making As the stated ingestion occurred approximately 1 hour prior to admission we will administer activated charcoal. According to the stated ingestion she would be in a toxic range for acetaminophen so a loading dose in the first 4-hour treatment protocol for acetaminophen overdose will be started. Poison control was consulted and considering the stated dose of both antihistamines and Tylenol they recommended a 24-hour observation. Patient has no complaint of any abdominal discomfort or nausea. She has been able to take some liquids she did take some activated charcoal. The initial acetaminophen was 35. We have a 4-hour level pending. Patient has not shown significant signs of antihistamine toxicity. Pupils are not dilated the face is not flushed she is not particularly tachycardic. I discussed the case with our hospitalist and he will admit the patient for observation. He is aware of suicidal ideation Assessment/Plan 1. Intentional acetaminophen overdose (T39.1X2A: Poisoning by [...] Continuous Salicylate Level XR Chest Single View Medications Administered Given Sodium Chloride 0.9% IV Britney 1000 mL 1,000 mL, 1000 mL, IV charcoal-sorbitol 50 g Oral Susp 240 mL, 50 gm, Oral [id number] [F] 175 mL + acetylSoln-IV [F] 63073 mg, IV Piggyback Dextrose 5% in Water IV Britney 500 mL [F] 500 mL + acetylSoln-IV [F] 5000 mg, IV Piggyback Disposition Plan Patient Discharge Condition Guarded Discharge Disposition Admit to observation telemetry Discharge Prescription List Prescriptions No active prescription medications Follow-up No qualifying data available Attestation Critical care time 45 minutes Problem List/Past Medical History Ongoing Smoker Historical Seizure Procedure/ (more content not included)... Normal [facility] Comment on above: Result Comment: Elec tronically Signed By: Andrew MARCANO, Justice\.br\Date and Time Signed: 03/07/23 17:43 EDT ED Patient Education Noteon 03-07-2023 ED Patient Education Note Normal [facility] ED Patient Summaryon 023 ED Patient Summary (Inserted Image. Nida ble to display) [place] [id number] Patient Discharge Instructions Person Information Name: ROSE MARY SCHNEIDER Age: 17 Years Arrival Date: 03/07/2023 14:06:45 Discharge Diagnosis: 1:Intentional acetaminophen overdose; 2:Suicidal ideation; 3:Antihistamines overdose; 4:Depression; 5:Seizure; 6:Obesity; 7:On deep vein thrombosis (DVT) prophylaxis Primary Care Physician: Claudia Ellington MD Provider Information Primary Provider: Justice Browne MD Advanced High Lift Driver:None The exam and treatment you received in the Emergency Department were for an urgent problem and are not intended as complete care. It is important that you follow up with a doctor, nurse practitioner, or physician?s dental assistant teacher for ongoing care. If your symptoms become worse or you do not improve as expected and you are unable to reach your usual health care provider, you should return to the Emergency Department. We are available 24 hours a day. ROSE MARY SCHNEIDER has been given the following list of patient education materials, prescriptions and follow-up instructions: Follow-up Instructions: In the event that this physician does not participate in your insurance network, please consult with your insurance company to find a nearby participating provider. Patient Education Materials: A MESSAGE TO ALL PATIENTS REGARDING OPIOIDS PRESCRIPTION OPIOIDS: WHAT YOU NEED TO KNOW Prescription opioids can be used to help relieve obbnbwqt-xs-mzefbq pain and are often prescribed following a surgery or injury, or for certain health conditions. These medications can be an important part of the treatment but also come with serious risks. It is important to work with your healthcare provider to make sure you are getting the safest, most effective care. WHAT ARE THE RISKS AND SIDE EFFECTS OF OPIOID USE? Prescription opioids carry serious risks of addiction and overdose, especially with prolonged use. An opioid overdose, often marked by slowed breathing, can cause sudden . The use of prescription opioids can have a number of side effects as well, even when taken as directed: ? Tolerance?meaning you might need to take more of the medication for the same pain relief ? Physical dependence?meaning you have symptoms of withdrawal when a medication is stopped ? Increased sensitivity to pain ? Constipation ? Nausea, vomiting, and dry mouth ? Sleepiness and dizziness ? Confusion ? Depression ? Low levels of testosterone that can result in lower sex drive, energy, and strength ? Itching and sweating RISKS ARE GREATER WITH: ? History of drug misuse, substance use disorder, or overdose ? Mental health conditions (such as depression or anxiety) ? Sleep apnea ? Older age (65 years and older) ? Avoid alcohol while taking prescription opioids. Also, unless specifically advised by your health care provider, medications to avoid include: ? Benzodiazepines (such as Xanax or Valium) ? Muscle relaxants (such as Soma or Flexeril) ? Hypnotics (such as Ambien or Lunesta) ? Other prescription opioids KNOW YOUR OPTIONS Talk to your health care provider about ways to manage your pain that don?t involve prescription opioids. Some of these options may actually work better and have fewer risks and side effects. Options may include: ? Pain relievers such as acetaminophen, ibuprofen, and naproxen ? Some medication that are also used for depression or seizures ? Physical therapy and exercise ? Cognitive behavioral therapy, a psychological, goal-directed approach, in which patients learn how to modify physical, behavioral, and emotional triggers of pain and stress. IF YOU ARE PRESCRIBED OPIOIDS FOR PAIN: ? Never take opioids in greater amounts or more often than prescribed. ? Follow up with your primary health care provider. o Work together to create a plan on how to manage your pain. o Talk about ways to help manage your pain that don?t involve prescription opioids. o Talk about any and all concerns and side effects. ? Help prevent misuse and abuse o Never sell or share prescription opioids. o Never use another person?s prescription opioids. ? Store prescription opioids in a secure place and out of reach of others (this may include visitors, children, friends, and family). ? Safely dispose of unused prescription opioids: Find your community drug take-back program or your pharmacy mail-back program, or flush them down the toilet, following guidance from the Food and Drug Administration (www.fda.gov/Drugs/Resour cesForYou). ? Visit www.cdc.gov/drugoverdose to learn about the risks of opioids abuse and overdose. ? If you believe you may be struggling with addiction, tell your health healthcare market consultant and ask for guidance or call [facility] National Helpline at 8-782-957-IBHZ. v Source: [place] Department of Health and Human (more content not included)... Normal [facility] Ethanolon 03-07-2023 Ethanol [Mass/Vol] mg/dL Normal <=7 [facility] Comment on above: Performed By: #### 2 [id number] #### [facility] [address] [place] [address] HEMATOLOGYOrdered By: SYSTEM SYSTEM on 03-07-2023 Basophils/100 [...] 12.6 g/dL Normal 12.0 - 16.0 gm/dL [facility] HemeAutoSS MCH (RBC) [Entitic mass] 28.0 pg Normal 27.0 - 34.0 pg [facility] HemeAutoSS MCHC (RBC) [Mass/Vol] 33.3 g/dL Normal 31.4 - 36.0 gm/dL [facility] HemeAutoSS MCV (RBC) [Entitic vol] 84.0 fL Normal 80.0 - 100.0 fL [facility] HemeAutoSS Platelet mean volume (Bld) [Entitic vol] 7.9 fL Normal 6.4 - 10.8 fL [facility] HemeAutoSS Platelets (Bld) [#/Vol] 442.0 E9/L Normal 150.0 - 500.0 E9/L [facility] HemeAutoSS RBC (Bld) [#/Vol] 4.5 E12/L Normal 4.3 - 5.9 E12/L [facility] HemeAutoSS WBC corrected for nucl RBC Auto (Bld) [#/Vol] 6.8 E9/L Normal 4.0 - 11.0 E9/L [facility] HemeAutoSS Hep Func Panelon 03-07-2023 Albumin [Mass/Vol] 3.2 g/dL Low 3.3-5.0 [facility] Comment on above: Performed By: #### 2 071032, [id number] #### [facility] [address] [place] [address] Albumin/Globulin (S) [Mass conc ratio] 0.7 Low 1.1-2.2 [facility] Comment on above: Performed By: #### 2 792784, 8216312 #### [facility] [address] [place] [address] ALP [Catalytic activity/Vol] 45 Int._Unit/L Normal 21-98 [facility] Comment on above: Performed By: #### 2 101604, [id number] #### [facility] [address] [place] [address] ALT No additional P-5'-P [Catalytic activity/Vol] 12 Int._Unit/L Normal 6-46 [facility] Comment on above: Performed By: #### 2 780156, 6657210 #### [facility] [address] [place] [address] AST [Catalytic activity/Vol] 16 Int._Unit/L Normal 5-43 [facility] Comment on above: Performed By: #### 2 675362, 7560544 #### [facility] [address] [place] [address] Bilirubin [Mass/Vol] 0.2 mg/dL Normal 0.0-1.1 [facility] Comment on above: Performed By: #### 2 163904, 7359117 #### [facility] [address] [place] [address] Bilirubin.indirect [Mass or moles/Vol] UTC Abnormal 0.1-0.9 [facility] Comment on above: Result Comment: Resu lt verified by Discern Rule. Performed result UTC (Unable to Calculate) was sent as an Alpha code due the inability to calculate a valid numeric value. Performed By: #### 2 982268, [id number] #### [facility] [address] [place] [address] Globulin (S) [Mass/Vol] 4.6 g/dL High 1.4-4.0 [facility] Comment on above: Performed By: #### 2 141047, 4863651 #### [facility] [address] [place] [address] Protein [Mass/Vol] 7.8 g/dL Normal 6.0-7.8 [facility] Comment on above: Performed By: #### 2 384895, 4610422 #### [facility] [address] [place] [address] Bilirubin.direct [Mass/Vol] mg/dL Normal 0.1-0.4 [facility] Comment on above: Performed By: #### 2 153477, 1669311 #### [facility] [address] [place] [address] Bilirubin.indirect [Mass or moles/Vol] UTC Abnormal 0.1-0.9 [facility] Comment on above: Result Comment: Resu lt verified by Discern Rule. Performed result UTC (Unable to Calculate) was sent as an Alpha code due the inability to calculate a valid numeric value. Performed By: #### 1 1485345, 4811567, 1300029, 0541799, 93402955, 6425982, 0044853, 0080636, 9663559 ####[facility] [address] [place] [address] Albumin [Mass/Vol] 3.1 g/dL Low 3.3-5.0 [facility] Comment on above: Performed By: #### 1 2976676, 0895785, 1819800, 6006092, 51858757, 7861606, 2999224, 9578632, 2406255 ####[address] [place] [address] Albumin/Globulin (S) [Mass conc ratio] 0.7 Low 1.1-2.2 [facility] Comment on above: Performed By: #### 1 [id number], 9749038, 2075636, 0393611, 24430195, 6857684, 8472422, 2197503, 9510346 ####[address] [address] ALP [Catalytic activity/Vol] 48 Int._Unit/L Normal 21-98 [facility] Comment on above: Performed By: #### 1 [id number], 5703701, 5680144, 5746083, 34837041, 5446118, 3192622, 3343592, 6536522 ####[address] [address] ALT No additional P-5'-P [Catalytic activity/Vol] 11 Int._Unit/L Normal 6-46 [facility] Comment on above: Performed By: #### 1 1248071, 0664457, 0915094, 8863403, 13653752, 1485435, 8992536, 6259835, 5930818 ####[address] [place] [address] AST [Catalytic activity/Vol] 16 Int._Unit/L Normal 5-43 [facility] Comment on above: Performed By: #### 1 6623531, 5348901, 4069873, 7294918, 75746529, 1457244, 6182371, 0074388, 0957427 ####[address] [address] Bilirubin [Mass/Vol] 0.5 mg/dL Normal 0.0-1.1 [facility] Comment on above: Performed By: #### 1 6653872, 5504749, 2527138, 2379455, 19135189, 7488317, 9765156, 9088200, 3222069 ####[facility] [address] [place] [address] Globulin (S) [Mass/Vol] 4.4 g/dL High 1.4-4.0 [facility] Comment on above: Performed By: #### 1 3180152, 4954222, 5710973, 4313417, 32694953, 0646021, 1863144, 5463483, 5179116 ####[facility] [address] [place] [address] Protein [Mass/Vol] 7.5 g/dL Normal 6.0-7.8 [facility] Comment on above: Performed By: #### 1 9520815, 1476191, 1164186, 3560945, 31381866, 3762474, 4740386, 9621762, 4097373 ####[facility] [address] [place] [address] Bilirubin.direct [Mass/Vol] mg/dL Normal 0.1-0.4 [facility] Comment on above: Performed By: #### 1 9693587, 4610845, 9808454, 1684295, 21434435, 8465953, 9707420, 2858977, 8558086 ####[facility] [address] [place] [address] Lipase Levelon 03-07-2023 Lipase [Catalytic activity/Vol] 24 U/L Normal 13-58 [facility] Comment on above: Performed By: #### 1 3120890, 9066069, 0010358, 7152366, 49234503, 3007957, 2616075, 4999790, 0995098 #### [facility] [address] [place] [address] Monitor Recordon 03-07-2023 Monitor Record [id number]#[id number]:1 27 [facility] Monitor Record [id number]#[id number]:1 27 [facility] Monitor Record [id number]#[id number]:1 27 [facility] Pre-Arrival Noteon 3 Pre-Arrival Note Pre-Arrival Summary Name: , Current Date: 03/07/2023 14:11:15 EDT Gender: Date of : Age: 17 Pre-Arrival Type: EMS ETA: 03/07/2023 14:33:00 EDT Primary Care Physician: Presenting Problem: overdose tylenol PM Pre-Arrival User: Julianne Sanford RN Referring Source: Location: [place] Completion Date/Time: 03/07/2023 14:03:00 [facility] Emergency Department Pre-Hospital Report Form ____ Vital Signs: Pre-Hospital Report: Treatment in Route: Response to Treatment: Misc. Issues: [facility] Progress Note-Nurseon 2022 Progress Note-Nurse Poison Control aj d and spoke with Chiquis who verbalized [address] Andrew jauregui [facility] SEROLOGYOrdered By: Kizzy Newby on 03-07-2023 Beta hCG Ql Negative (03/07/23 2:43 PM) Normal [facility] Salicylateon 03-07-2023 Salicylates [Mass/Vol] mg/dL Low 6-29 [facility] Comment on above: Performed By: #### 1 2500555, 9269083, 4831263, 8442124, 20385190, 4507125, 6680019, 4787173, 4161018 #### [facility] [address] [place] [address] U Drug Screenon 03-07-2023 Amphetamines Screen method >1000 ng/mL Ql (U) Negative Normal Negative [facility] Comment on above: Result Comment: Nega tive Cutoff: <1000 ng/mL Performed By: #### 2 303817 #### [facility] [address] [place] [address] Barbiturates Screen Ql (U) Negative Normal Negative [facility] Comment on above: Result Comment: Nega tive Cutoff: <200 ng/mL Performed By: #### 2 607875 #### [facility] [address] [place] [address] Benzodiazepines Ql (U) Negative Normal Negative [facility] Comment on above: Result Comment: Nega tive Cutoff: <200 ng/mL Performed By: #### 2 510206 #### [facility] [address] [place] [address] Cocaine Ql (U) Negative Normal Negative [facility] Comment on above: Result Comment: Nega tive Cutoff: <300 ng/mL Performed By: #### 2 506347 #### [facility] [address] [place] [address] Opiates Screen Ql (U) Negative Normal Negative [facility] Comment on above: Result Comment: Nega tive Cutoff: <300 ng/mL Performed By: #### 2 400089 #### [facility] [address] [place] [address] Phencyclidine Screen method >25 ng/mL Ql (U) Negative Normal Negative [facility] Comment on above: Result Comment: Nega tive Cutoff: <25 ng/mL These drug screen results are to be used for medical (i.e., treatment) purposes only. Unconfirmed drug screening results must not be used for non-medical purposes (e.g., employment testing, legal testing). Performed By: #### 2 159865 #### [facility] [address] [place] [address] Tetrahydrocannabinol Screen method >50 ng/mL Ql (U) Negative Normal Negative [facility] Comment on above: Result Comment: Nega tive Cutoff: <50 ng/mL Performed By: #### 2 051661 #### [facility] [address] [place] [address] XR Chest Single Viewon 03-07 XR Chest Single View Exam Date/Time: 03/07/2023 14:48 EDT Reason for Exam: Overdose;Other (please specify) Report IMPRESSION: There are no acute cardiopulmonary changes. CLINICAL HISTORY: Overdose EXAMINATION: XR Chest Single View COMPARISON: Chest x-ray from 10/06/2022 FINDINGS: The cardiomediastinal silhouette is unremarkable. The lungs are free of infiltrates effusions or consolidations. There are no acute osseous changes. Ordering Provider: Justice Browne FINAL REPORT Dictated: 03/07/2023 3:38 pm Mars Mclain MD, V. Signed (Electronic Signature): 03/07/2023 3:38 pm Signed by: Mars Mclain MD, V. Transcribed by: GARTH Technologist: AJ, Technical Comments Radiation Dose: Ka,r in mGy = na DAP = na Normal [facility] eGFRon 03-07-2023 GFR/1.73 sq M.predicted among non-blacks MDRD (S/P/Bld) [Vol rate/Area] 95 mL/min/1.73 m2 Normal >=59 [facility] Comment on above: Order Comment: Order added by Discern Expert. Result Comment: [employer] K[employer] marleny kidney disease could be indicated at eGFR's of less than 60 mL/min/1.73m2. Kidney failure is indicated at less than 15 mL/min/1.73m2. Performed By: #### 1 [id number], 9412804, 8491545, 2457760, 33603886, 3141731, 2653202, 3059917, 9622263 ####[facility] [address] [place] [address] B hCG Qualon 02-27-2023 Beta hCG Ql Negative Normal [facility] Comment on above: Performed By: #### 2 244057, 6250451 #### [facility] [address] [place] [address] Consent for Treatmenton 02-01 Consent for Treatment [id number]#1.00CD:12 7 Normal [facility] Physician Orderon 02-27-2023 Physician Order [id number]#1.00CD:1 27 Normal [facility] CHEMISTRYOrdered By: SYSTEM SYSTEM on 11-13-2022 Acetaminophen [...] (11/13/22 2:29 PM) Normal Negative [facility] HEMATOLOGYOrdered By: SYSTEM SYSTEM on 11-13-2022 Basophils/100 [...] Normal 4.0 - 10.5 E9/L [facility] HemeAutoSS SEROLOGYOrdered By: Cyn ward on 11-13-2022 Beta hCG Ql Negative (11/13/22 2:56 PM) Normal [facility] URINALYSISOrdered By: Marilyn Rivas on 11-13-2022 Bacteria [...] PM) Normal Negative [facility] UA Auto SS Alix.plasma/Alix .RBC (Bld) [Mass ratio] 0-3 /HPF Normal [...] [facility] UA Auto SS Urobilinogen Qn (U) 0.5598038 {Ed'U}/dL Normal 0.0 - 1.0 EU/dL [facility] UA Auto SS WBC Auto Ql (U) Trace *ABN* (11/13/22 2:29 PM) Invalid Interpretation Code Negative [facility] UA Auto SS WBC LM.HPF (Urine sed) [#/Area] 0-5 /HPF Normal 0-5/HPF [facility] UA Auto SS CBC AUTO DIFFon 11-05-2022 BASO # 0.0 103/ul Normal 0.0-0.1 [facility] Comment on above: Performed By: #### C BC #### [facility] [address] [address] [address] Tara Jackson Basophils/100 WBC (Bld) 0.5 % Normal 0.2-2.0 [facility] Comment on above: Performed By: #### C BC #### [facility] [address] [place] [address] Dr. Tara Jackson EO # 0.3 103/ul Normal 0.0-0.7 [facility] Comment on above: Performed By: #### C BC #### [facility] [address] [address] [address] Tara Jackson Eosinophils/100 WBC (Bld) 4.9 % Normal 0.9-7.0 [facility] Comment on above: Performed By: #### C BC #### [facility] [address] [place] [address] Dr. Tara Jackson Erythrocyte distribution width (RBC) [Ratio] 12.8 % Normal 11.0-15.0 [facility] Comment on above: Performed By: #### C BC #### [facility] [address] [place] [address] Dr. Tara Jackson Hematocrit (Bld) [Volume fraction] 35.8 % Critically low 36.0-48.0 [facility] Comment on above: Performed By: #### C BC #### [facility] [address] [place] [address] Dr. Tara Jackson Hemoglobin (Bld) [Mass/Vol] 11.8 g/dL Critically low 12.0-16.0 [facility] Comment on above: Performed By: #### C BC #### [facility] [address] [place] [address] Dr. Tara Jackson IG # 0.01 10e3/ul Normal 0.00-0.03 [facility] Comment on above: Performed By: #### C BC #### [facility] [address] [place] [address] Dr. Tara Jackson IG % 0.2 % Normal 0.0-0.5 [facility] Comment on above: Performed By: #### C BC #### [facility] [address] [place] [address] Dr. Tara Jackson LYMPH # 1.7 103/ul Normal 1.2-3.8 [facility] Comment on above: Performed By: #### C BC #### [facility] [address] [place] [address] Dr. Tara Jackson Lymphocytes/100 WBC (Bld) 30.2 % Normal 20.5-60.0 [facility] Comment on above: Performed By: #### C BC #### [facility] [address] [place] [address] Dr. Tara Jackson MANUAL DIFF REQ NO Normal [facility] Comment on above: Performed By: #### C BC #### [facility] [address] [place] [address] Dr. Tara Jackson MCH (RBC) [Entitic mass] 27.6 pg Normal 26.7-34.0 [facility] Comment on above: Performed By: #### C BC #### [facility] [address] [place] [address] Dr. Tara Jackson MCHC (RBC) [Mass/Vol] 33.0 g/dL Normal 29.9-35.2 [facility] Comment on above: Performed By: #### C BC #### [facility] [address] [place] [address] Dr. Tara Jackson MCV (RBC) [Entitic vol] 83.8 fL Normal 79.1-95.6 [facility] Comment on above: Performed By: #### C BC #### [facility] [address] [place] [address] Dr. Tara Jackson MONO # 0.5 103/ul Normal 0.3-0.8 [facility] Comment on above: Performed By: #### C BC #### [facility] [address] [place] [address] Dr. Tara Jackson Monocytes/100 WBC (Bld) 7.9 % Normal 1.7-12.0 [facility] Comment on above: Performed By: #### C BC #### [facility] [address] [place] [address] Dr. Tara Jackson NEUT # 3.2 103/ul Normal 1.4-6.5 [facility] Comment on above: Performed By: #### C BC #### [facility] [address] [place] [address] Dr. Tara Jackson Neutrophils/100 WBC (Bld) 56.3 % Normal 43.0-75.0 [facility] Comment on above: Performed By: #### C BC #### [facility] [address] [place] [address] Dr. Tara Jackson Platelet mean volume (Bld) [Entitic vol] 9.0 fL Critically low 9.5-13.5 [facility] Comment on above: Performed By: #### C BC #### [facility] [address] [place] [address] Dr. Tara Jackson PLT 373 103/ul Normal 150-450 [facility] Comment on above: Performed By: #### C BC #### [facility] [address] [place] [address] Dr. Tara Jackson RBC 4.27 106/ul Normal 3.40-5.30 [facility] Comment on above: Performed By: #### C BC #### [facility] [address] [place] [address] Dr. Tara Jackson WBC 5.7 103/ul Normal 4.0-11.0 [facility] Comment on above: Performed By: #### C BC #### [facility] [address] [place] [address] Dr. 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 Admission #: [id number] Family : TEENA TRAN . Order #: [id number] CLICK HERE TO VIEW EXAM ECHOCARDIOGRAM REPORT [...] Tafoya M.D. on 11/06/2022 at 18:40 Normal [facility] QUALon 11-05-2022 , QUAL Negative Normal NEGATIVE [facility] Comment on above: Performed By: #### C BC #### [facility] [address] [place] [address] Dr. Tara Jackson PROF CHEM 8 (BAS METB)on Anion gap [Moles/Vol] 11.4 mmol/L Normal [facility] Comment on above: Performed By: #### C VDTBH #### [facility] [address] [place] [address] Dr. Tara Jackson Calcium [Mass/Vol] 8.5 mg/dL Normal 8.5-10.1 [facility] Comment on above: Performed By: #### C VDTBH #### [facility] [address] [place] [address] Dr. Tara Jackson Chloride [Moles/Vol] 103 mmol/L Normal 98-107 [facility] Comment on above: Performed By: #### C VDTBH #### [facility] [address] [place] [address] Dr. Tara Jackson CO2 [Moles/Vol] 27.5 mmol/L Normal 21.0-32.0 [facility] Comment on above: Performed By: #### C VDTBH #### [facility] [address] [place] [address] Dr. Tara Jackson Creatinine [Mass/Vol] 0.67 mg/dL Normal 0.55-1.02 [facility] Comment on above: Performed By: #### C VDTBH #### [facility] [address] [place] [address] Dr. Tara Jackson Glucose [Mass/Vol] 93 mg/dL Normal 74-106 [facility] Comment on above: Performed By: #### C VDTBH #### [facility] [address] [place] [address] Dr. Tara Jackson Potassium [Moles/Vol] 3.9 mmol/L Normal 3.5-5.1 [facility] Comment on above: Performed By: #### C VDTBH #### [facility] [address] Tara Jackson Sodium [Moles/Vol] 138 mmol/L Normal 136-145 [facility] Comment on above: Performed By: #### C VDTBH #### [facility] [address] Tara Jackson Urea nitrogen [Mass/Vol] 15.0 mg/dL Normal 6.4-19.3 [facility] Comment on above: Performed By: #### C VDTBH #### [facility] [address] Tara Jackson Urea nitrogen/Creatinine [Mass ratio] 22.4 mg/mg Normal [facility] Comment on above: Performed By: #### C VDTBH #### [facility] [address] [address] [address] Tara Jackson CHEMISTRYOrdered By: SYSTEM SYSTEM on 10-11-2022 Acetaminophen [Mass/Vol] 85 microgram/mL Invalid Interpretation Code 15 - 30 mcg/mL [facility] Comment on above: Result Comment: Crit ical Result verified by repeat analysis\Critical Result S_ACTM:85.[address] DRAPER AT ER by RUTH MILLER And Read Back For Confirmation at: 10/11/2022 01:41:50 CHEMISTRYOrdered By: SYSTEM SYSTEM on 10-10-2022 Amphetamines [...] - 1 2.5 second(s) [facility] Auto Coag HEMATOLOGYOrdered By: SYSTEM SYSTEM on 10-10-2022 Basophils/100 [...] NEG Ctl Pass (10/10/22 10:09 PM) Normal [facility] Rapid COV Int POS Ctl Pass (10/10/22 10:09 PM) Normal [facility] SARS-CoV+SARS-CoV-2 (COVID-19) Ag IA.rapid Ql (Resp) Not Detected (10/10/22 10:09 PM) Normal Not Detected [facility] SEROLOGYOrdered By: Ruth orellana on 10-10-2022 HCG.beta subunit (U) [Moles/Vol] Negative Normal [facility] CHEMISTRYOrdered By: SYSTEM SYSTEM on 10-06-2022 Anion [...] Normal 0.5 - 1.3 mg/dL [facility] Glucose [Mass/Vol] 119 mg/dL Normal 55 - 199 mg/dL [facility] Potassium [Moles/Vol] 3.6 mmol/L Normal 3.5 - 5.3 mmol/L [facility] Sodium [Moles/Vol] 135 mmol/L Normal 135 - 145 mmol/L [facility] Troponin I.cardiac [Mass/Vol] pg/mL Low 10.10 - 27.10 pg/mL [facility] Urea nitrogen [Mass/Vol] 12 mg/dL Normal 5 - 21 mg/dL [facility] Urea nitrogen/Creatinine [Mass ratio] 15 mg/mg Normal 10 - 20 [facility] COAGULATIONOrdered By: Brennon Cleveland on 10-06-2022 aPTT Coag (PPP) [Time] 35.1 s Normal 25.1 - 36.5 second(s) [facility] INR Coag (PPP) [Relative time] 1.0 {INR} Invalid Interpretation Code [facility] Auto Coag PT Coag (PPP) [Time] 11.0 s Normal 9.4 - 1 2.5 second(s) [facility] Auto Coag HEMATOLOGYOrdered By: SYSTEM SYSTEM on 10-06-2022 Basophils/100 [...] gm/dL [facility] MCV (RBC) [Entitic vol] 84.3 fL Normal 78.0 - 95.0 fL [facility] Platelet mean volume (Bld) [Entitic vol] 7.6 fL Normal 6.0 - 9.5 fL [facility] Platelets (Bld) [#/Vol] 356.0 E9/L Normal 150.0 - 450.0 E9/L [facility] RBC (Bld) [#/Vol] 4.2 E12/L Normal 4.1 - 5.3 E12/L [facility] WBC corrected for nucl RBC Auto (Bld) [#/Vol] 8.2 E9/L Normal 4.0 - 10.5 E9/L [facility] SEROLOGYOrdered By: Debby Cleveland on 10-06-2022 HCG.beta subunit (U) [Moles/Vol] Negative Normal [facility] URINALYSISOrdered By: Lady Cleveland on 10-06-2022 Bilirubin [...] AM) Normal Negative [facility] UA Auto SS Alix.plasma/Alix .RBC (Bld) [Mass ratio] 0-3 /HPF Normal 0-3/HPF [facility] UA Auto SS Mucus Ql (Urine sed) 2+ (10/06/22 1:20 AM) Normal [facility] UA Auto SS Nitrite Ql (U) Negative (10/06/22 1:20 AM) Normal Negative [facility] UA Auto SS pH (U) 6.0 *NA* (10/06/22 1:20 AM) Invalid Interpretation Code 5.0 - 9.0 [facility] UA Auto SS Protein (U) [Mass/Vol] Negative (10/06/22 1:20 AM) Normal Negative [facility] UA Auto SS Specific gravity (U) [Rel density] >=1.030 *NA* (10/06/22 1:20 AM) Invalid Interpretation Code 1.005 - 1.030 [facility] UA Auto SS UA Spec Desc Clean Catch (10/06/22 1:20 AM) Normal [facility] UA Auto SS Urobilinogen Qn (U) 0.6342752 {Ed'U}/dL Normal 0.0 - 1.0 EU/dL [facility] UA Auto SS WBC Auto Ql (U) Negative (10/06/22 1:20 AM) Normal Negative [facility] UA Auto SS WBC LM.HPF (Urine sed) [#/Area] 0-5 /HPF Normal 0-5/HPF [facility] UA Auto SS CHEMISTRYOrdered By: Anette ROP User on 10-05-2022 Glucose [Mass/Vol] 131 mg/dL High 55 - 99 mg/dL [facility] POC Subsection Comment on above: Result Comment: Shanique percy Meter POC Device SN [id number] Invalid Interpretation Code [facility] POC Subsection POC User ID [id number] Invalid Interpretation Code [facility] POC Subsection POC Username CHRISTIANO GARCIA Invalid Interpretation Code [facility] POC Subsection LEVETIRACETAM, SERUM OR PLAS MAon 09-27-2022 Levetiracetam, S 13.6 ug/mL Normal 10.0-40.0 [facility] Comment on above: Performed By: #### C BC #### [facility] [address] [place] [address] Dr. Tara Jackson INSULINon 09-26-2022 Insulin 21.0 uIU/mL Normal 2.6-24.9 [facility] Comment on above: Performed By: #### I NSULIN #### [facility] [address] [place] [address] Dr. Tara Jackson BILIRUBIN CONJUGATED (DIRECT )on 09-25-2022 BILI, CONJUGATED 0.1 mg/dL Normal 0.0-0.2 [facility] Comment on above: Performed By: #### C VDTBH #### [facility] [address] [place] [address] Dr. Tara Jackson CBC AUTO DIFFon 09-25-2022 BASO # 0.0 103/ul Normal 0.0-0.1 [facility] Comment on above: Performed By: #### C VDTBH #### [facility] [address] [place] [address] Dr. Tara Jackson Basophils/100 WBC (Bld) 0.6 % Normal 0.2-2.0 [facility] Comment on above: Performed By: #### C VDTBH #### [facility] [address] [place] [address] Dr. Tara Jackson EO # 0.3 103/ul Normal 0.0-0.7 [facility] Comment on above: Performed By: #### C VDTBH #### [facility] [address] [place] [address] Dr. Tara Jackson Eosinophils/100 WBC (Bld) 4.5 % Normal 0.9-7.0 [facility] Comment on above: Performed By: #### C VDTBH #### [facility] [address] [place] [address] Dr. Tara Jackson Erythrocyte distribution width (RBC) [Ratio] 12.2 % Normal 11.0-15.0 [facility] Comment on above: Performed By: #### C VDTBH #### [facility] [address] [place] [address] Dr. Tara Jackson Hematocrit (Bld) [Volume fraction] 38.4 % Normal 36.0-48.0 [facility] Comment on above: Performed By: #### C VDTBH #### [facility] [address] [place] [address] Dr. Tara Jackson Hemoglobin (Bld) [Mass/Vol] 13.0 g/dL Normal 12.0-16.0 [facility] Comment on above: Performed By: #### C VDTBH #### [facility] [address] [place] [address] Dr. Tara Jackson IG # 0.01 10e3/ul Normal 0.00-0.03 [facility] Comment on above: Performed By: #### C VDTBH #### [facility] [address] [place] [address] Dr. Tara Jackson IG % 0.2 % Normal 0.0-0.5 [facility] Comment on above: Performed By: #### C VDTBH #### [facility] [address] [place] [address] Dr. Taar Jackson LYMPH # 1.8 103/ul Normal 1.2-3.8 [facility] Comment on above: Performed By: #### C VDTBH #### [facility] [address] [place] [address] Dr. Tara Jackson Lymphocytes/100 WBC (Bld) 28.7 % Normal 20.5-60.0 [facility] Comment on above: Performed By: #### C VDTBH #### [facility] [address] [place] [address] Dr. Tara Jackson MANUAL DIFF REQ NO Normal [facility] Comment on above: Performed By: #### C VDTBH #### [facility] [address] [place] [address] Dr. Tara Jackson MCH (RBC) [Entitic mass] 28.6 pg Normal 26.7-34.0 [facility] Comment on above: Performed By: #### C VDTBH #### [facility] [address] [place] [address] Dr. Tara Jackson MCHC (RBC) [Mass/Vol] 33.9 g/dL Normal 29.9-35.2 [facility] Comment on above: Performed By: #### C VDTBH #### [facility] [address] [place] [address] Dr. Tara Jackson MCV (RBC) [Entitic vol] 84.4 fL Normal 79.1-95.6 [facility] Comment on above: Performed By: #### C VDTBH #### [facility] [address] [place] [address] Dr. Tara Jackson MONO # 0.4 103/ul Normal 0.3-0.8 [facility] Comment on above: Performed By: #### C VDTBH #### [facility] [address] [place] [address] Dr. Tara Jackson Monocytes/100 WBC (Bld) 6.5 % Normal 1.7-12.0 [facility] Comment on above: Performed By: #### C VDTBH #### [facility] [address] [place] [address] Dr. Tara Jackson NEUT # 3.7 103/ul Normal 1.4-6.5 [facility] Comment on above: Performed By: #### C VDTBH #### [facility] [address] [place] [address] Dr. Tara Jackson Neutrophils/100 WBC (Bld) 59.5 % Normal 43.0-75.0 [facility] Comment on above: Performed By: #### C VDTBH #### [facility] [address] [place] [address] Dr. Tara Jackson Platelet mean volume (Bld) [Entitic vol] 9.0 fL Critically low 9.5-13.5 [facility] Comment on above: Performed By: #### C VDTBH #### [facility] [address] [place] [address] Dr. Tara Jackson PLT 401 103/ul Normal 150-450 [facility] Comment on above: Performed By: #### C VDTBH #### [facility] [address] [place] [address] Dr. Tara Jackson RBC 4.55 106/ul Normal 3.40-5.30 [facility] Comment on above: Performed By: #### C VDTBH #### [facility] [address] [place] [address] Dr. Tara Jackson WBC 6.2 103/ul Normal 4.0-11.0 [facility] Comment on above: Performed By: #### C VDTBH #### [facility] [address] [place] [address] Dr. Tara Jackson FREE THYROXINE INDEX T7on FTI 2.77 Normal 1.30-4.50 [facility] Comment on above: Performed By: #### C BC #### [facility] [address] [place] [address] Dr. Tara Jackson T3U 36.0 % Normal 30.0-39.0 [facility] Comment on above: Performed By: #### C BC #### [facility] [address] [place] [address] Dr. Tara Jackson T4 [Mass/Vol] 7.70 ug/dL Normal 5.40-10.60 [facility] Comment on above: Performed By: #### C BC #### [facility] [address] [place] [address] Dr. Tara Jackson GLYCOHEMOGLOBIN A1Con 2022 ADA RECOMMENDATION SEE BELOW Normal [facility] Comment on above: Result Comment: ADA RECOMMENDED LIMIT 4.0 - 6.0 ADA THERAPEUTIC TARGET < 7.0 ACTION SUGGESTED > 7.0 Performed By: #### A 1C #### [facility] [address] [place] [address] Dr. Tara Jackson Glucose [Mass/Vol] 103 mg/dL Normal [facility] Comment on above: Performed By: #### A 1C #### [facility] [address] [place] [address] Dr. Tara Jackson HbA1c (Bld) [Mass fraction] 5.2 % Normal 4.5-6.2 [facility] Comment on above: Performed By: #### A 1C #### [facility] [address] [place] [address] Dr. Tara Jackson IRONon 09-25-2022 Iron [Mass/Vol] 33.0 ug/dL Critically low 50.0-170.0 [facility] Comment on above: Performed By: #### C VDTB #### [facility] [address] [place] [address] Dr. Tara Jackson LIPID PROFILEon 09-25-2022 CHOL-HDL RATIO NORM SEE BELOW Normal [facility] Comment on above: Result Comment: 3.3 - 4.4 LOW RISK 4.4 - 7.1 AVERAGE RISK 7.1 - 11.0 MODERATE RISK >11.0 HIGH RISK Performed By: #### C BC #### [facility] [address] [place] [address] Dr. Tara Jackson Cholesterol [Mass/Vol] 189 mg/dL Normal 104-[address] [facility] Comment on above: Performed By: #### C BC #### [facility] [address] [place] [address] Dr. Tara Jackson Cholesterol in HDL [Mass/Vol] 36 mg/dL Normal 29-69 [facility] Comment on above: Performed By: #### C BC #### [facility] [address] [place] [address] Dr. Tara Jackson Cholesterol in LDL [Mass/Vol] 128.4 mg/dL Normal 46.0-140.0 [facility] Comment on above: Performed By: #### C BC #### [facility] [address] [place] [address] Dr. Tara Jackson Cholesterol.total/Chol esterol in HDL [Mass ratio] 5.3 {ratio} Normal [facility] Comment on above: Performed By: #### C BC #### [facility] [address] [place] [address] Dr. Tara Jackson HDL NORMAL > or = 60 mg/dl - LO W CARDIOVASCULAR RISK <40 mg/dl - HIGH CARDIOVASCULAR RISK Normal [facility] Comment on above: Performed By: #### C BC #### [facility] [address] [place] [address] Dr. Tara Jackson LDL CALC NORMAL SEE BELOW Normal [facility] Comment on above: Result Comment: <100 mg/dl OPTIMAL 100 - 129 mg/dl NEAR OR ABOVE OPTIMAL 130 - 159 mg/dl BORDERLINE HIGH 160 - 189 mg/dl HIGH >190 mg/dl VERY HIGH Performed By: #### C BC #### [facility] [address] [place] [address] Dr. Tara Jackson Triglyceride [Mass/Vol] 123 mg/dL Normal 53-208 [facility] Comment on above: Performed By: #### C BC #### [facility] [address] [place] [address] Dr. Tara Jackson VLDL CALC 24.6 mg/dL Normal [facility] Comment on above: Performed By: #### C BC #### [facility] [address] [place] [address] Dr. Tara Jackson PROF 14(COMP METB)on 023 Albumin [Mass/Vol] 3.2 g/dL Critically low 3.4-5.[address] [facility] Comment on above: Performed By: #### C BC #### [facility] [address] [place] [address] Dr. Tara Jackson Albumin/Globulin [Mass ratio] 0.7 {ratio} Normal [facility] Comment on above: Performed By: #### C BC #### [facility] [address] [place] [address] Dr. Tara Jackson ALP [Catalytic activity/Vol] 80 U/L Normal 65-260 [facility] Comment on above: Performed By: #### C BC #### [facility] [address] [place] [address] Dr. Tara Jackson ALT [Catalytic activity/Vol] 18 U/L Normal 14-59 [facility] Comment on above: Performed By: #### C BC #### [facility] [address] [place] [address] Dr. Tara Jackson Anion gap [Moles/Vol] 9.0 mmol/L Normal [facility] Comment on above: Performed By: #### C BC #### [facility] [address] [place] [address] Dr. Tara Jackson AST [Catalytic activity/Vol] 18 U/L Normal 15-37 [facility] Comment on above: Performed By: #### C BC #### [facility] [address] [place] [address] Dr. Tara Jackson Bilirubin [Mass/Vol] 0.2 mg/dL Normal 0.2-1.0 [facility] Comment on above: Performed By: #### C BC #### [facility] [address] [place] [address] Dr. Tara Jackson Calcium [Mass/Vol] 9.1 mg/dL Normal 8.5-10.1 [facility] Comment on above: Performed By: #### C BC #### [facility] [address] [place] [address] Dr. Tara Jackson Chloride [Moles/Vol] 101 mmol/L Normal 98-107 [facility] Comment on above: Performed By: #### C BC #### [facility] [address] [place] [address] Dr. Tara Jackson CO2 [Moles/Vol] 30.2 mmol/L Normal 21.0-32.0 [facility] Comment on above: Performed By: #### C BC #### [facility] [address] [place] [address] Dr. Tara Jackson Creatinine [Mass/Vol] 0.80 mg/dL Normal 0.55-1.02 [facility] Comment on above: Performed By: #### C BC #### [facility] [address] [place] [address] Dr. Tara Jackson Globulin (S) [Mass/Vol] 4.3 g/dL Normal [facility] Comment on above: Performed By: #### C BC #### [facility] [address] [place] [address] Dr. Tara Jackson Glucose [Mass/Vol] 101 mg/dL Normal 74-106 [facility] Comment on above: Performed By: #### C BC #### [facility] [address] [place] [address] Dr. Tara Jackson Potassium [Moles/Vol] 4.2 mmol/L Normal 3.5-5.1 [facility] Comment on above: Performed By: #### C BC #### [facility] [address] [place] [address] Dr. Tara Jackson Protein [Mass/Vol] 7.5 g/dL Normal 6.4-8.2 [facility] Comment on above: Performed By: #### C BC #### [facility] [address] [place] [address] Dr. Tara Jackson Sodium [Moles/Vol] 136 mmol/L Normal 136-145 [facility] Comment on above: Performed By: #### C BC #### [facility] [address] [place] [address] Dr. Tara Jackson Urea nitrogen [Mass/Vol] 11.0 mg/dL Normal 6.4-19.3 [facility] Comment on above: Performed By: #### C BC #### [facility] [address] [place] [address] Dr. Tara Jackson Urea nitrogen/Creatinine [Mass ratio] 13.8 mg/mg Normal [facility] Comment on above: Performed By: #### C BC #### [facility] [address] [place] [address] Dr. Tara Jackson TSHon 09-25-2022 TSH 5.240 uIU/mL Critically high 0.516-4.130 [facility] Comment on above: Performed By: #### C BC #### [facility] [address] [place] [address] Dr. Tara Jackson Covid-19 PCR (CVDTB)on SARS-CoV-2 (COVID-19) RNA CHRISTIAN+probe Ql (Unsp spec) Not detected Normal NOT DETECTED [facility] Comment on above: Result Comment: This test is not yet approved or cleared by the [place] FDA. When there are no FDA-approved or cleared tests available, and other criteria are met, FDA can make tests available under an emergency access mechanism called an Emergency Use Authorization (EUA). The EUA for this test is supported by the [place] of Health and Human Service's (HHS's) declaration [...] consistent with SARS-CoV-2. Performed By: #### C VDTBH #### [facility] [address] [place] [address] Dr. Tara Jackson INFLUENZA A AND B AGon 09-11 [facility] SEE BELOW Normal [facility] Comment on above: Result Comment: Nega tive for Flu A protein angiten. Infection due to Flu A cannot be ruled out. Flu A angiten in the sample may be below the detection limit of the test. Performed By: #### I NFLUAB #### [facility] [address] [place] [address] Dr. Tara Jackson INFLUBNEG SEE BELOW Normal [facility] Comment on above: Result Comment: Nega tive for Flu B protein antigen. Infection due to Flu B cannot be ruled out. Flu B antigen in the sample may be below the detection limit of the test. Performed By: #### I NFLUAB #### [facility] [address] [place] [address] Dr. Tara Jackson INFLUENZA A AG Negative Normal NEGATIVE SEE COMMENT [facility] Comment on above: Performed By: #### I NFLUAB #### [facility] [address] [place] [address] Dr. Tara Jackson INFLUENZA B AG Negative Normal NEGATIVE SEE COMMENT [facility] Comment on above: Performed By: #### I NFLUAB #### [facility] [address] [place] [address] Dr. Tara Jackson Covid-19 PCR (CVDTB)on SARS-CoV-2 (COVID-19) RNA CHRISTIAN+probe Ql (Unsp spec) Not detected Normal NOT DETECTED [facility] Comment on above: Result Comment: When diagnostic [...] for this test is supported by the [place] of Health and Human Service's declaration that [...] used). Performed By: #### C VDTBH #### [facility] [address] [place] [address] Dr. Tara Jackson INFLUENZA A AND B AGon 08-05 INFLUANEGH SEE BELOW Normal [facility] Comment on above: Result Comment: Nega tive for Flu A protein angiten. Infection due to Flu A cannot be ruled out. Flu A angiten in the sample may be below the detection limit of the test. Performed By: #### I NFLUAB #### [facility] [address] [address] [address] Tara Jackson [facility] SEE BELOW Normal [facility] Comment on above: Result Comment: Nega tive for Flu B protein antigen. Infection due to Flu B cannot be ruled out. Flu B antigen in the sample may be below the detection limit of the test. Performed By: #### I NFLUAB #### [facility] [address] [address] [address] Tara Jackson INFLUENZA A AG Negative Normal NEGATIVE SEE COMMENT [facility] Comment on above: Performed By: #### I NFLUAB #### [facility] [address] [address] [address] Tara Jackson INFLUENZA B AG Negative Normal NEGATIVE SEE COMMENT [facility] Comment on above: Performed By: #### I NFLUAB #### [facility] [address] [place] [address] Dr. Tara Jackson Albumin [Mass/volume] in Ser um or PlasmaOrdered By: Claudia Ellington on 07-31-2022 Albumin [Mass/Vol] 3.2 g/dL 3.2-5.5 [facility] Basophils Auto (Bld) [#/Vol] Ordered By: Claudia Ellington on 07-31-2022 Basophils (Bld) [#/Vol] 0.0 10*3/uL 0.0-0.1 [facility] Basophils/100 WBC Auto (Bld) Ordered By: Claudia Ellington on 07-31-2022 Basophils/100 WBC (Bld) 0.4 % . [facility] Cholesterol [Mass/volume] in Serum or PlasmaOrdered By: Claudia Ellington on 07-31-2022 Cholesterol [Mass/Vol] 264 mg/dL 140-200 [facility] Comment on above: Chol less than 200 m g/dl low riskChol 201-239 mg/dl borderline riskChol 240 mg/dl and greater high risk Cholesterol in LDL Calc [Mas s/Vol]Ordered By: Claudia Ellington on 07-31-2022 Cholesterol in LDL [Mass/Vol] 168 mg/dL 0-100 [facility] Comment on above: LDL ATP III CLASSIFI CATIONLDL less than 100 mg/dL OptimalLDL 100-129 mg/dL Near or above optimalLDL 130-159 mg/dL Borderline highLDL 160-189 mg/dL HighLDL greater than 189 mg/dL Very high Cholesterol in VLDL Calc [Ma ss/Vol]Ordered By: Claudia Ellington on 07-31-2022 Cholesterol in VLDL [Mass/Vol] 17 mg/dL [facility] Creatinine and Glomerular fi ltration rate.predicted panel (S/P/Bld)Ordered By: Claudia Ellington on 07-31-2022 Creatinine [Mass/Vol] 0.87 mg/dL 0.44-1.03 [facility] Eosinophils Auto (Bld) [#/Vo l]Ordered By: Claudia Ellington on 07-31-2022 Eosinophils (Bld) [#/Vol] 0.0 10*3/uL 0.0-0.7 [facility] Eosinophils/100 WBC Auto (Bl d)Ordered By: Claudia Ellington on 07-31-2022 Eosinophils/100 WBC (Bld) 0.5 % . [facility] Erythrocyte distribution wid th Auto (RBC) [Ratio]Ordered By: Claudia Ellington on 07-31-2022 Erythrocyte distribution width (RBC) [Ratio] 13.2 % 11.9-15.3 [facility] Estimated glomerular filtrat ion rate (GFR) non- AmericanOrdered By: Claudia Ellington on 07-31-2022 GFR/1.73 sq M.predicted among non-blacks MDRD (S/P/Bld) [Vol rate/Area] N/A [facility] Globulin Calc (S) [Mass/Vol] Ordered By: Claudia Ellington on 07-31-2022 Globulin (S) [Mass/Vol] 3.3 g/dL [facility] Glucose mean value [Mass/vol ume] in Blood Estimated from glycated hemoglobinOrdered By: Claudia Ellington on 07-31-2022 Average glucose Estimated from glycated hemoglobin (Bld) [Mass/Vol] 114 mg/dL [facility] Hematocrit Auto (Bld) [Volum e fraction]Ordered By: Claudia Ellington on 07-31-2022 Hematocrit (Bld) [Volume fraction] 38.5 % 36.0-46.0 [facility] Hemoglobin A1c percentageOrd ered By: Claudia Ellington on 07-31-2022 HbA1c (Bld) [Mass fraction] 5.6 % 4.3-5.6 [facility] Comment on above: Increased risk for d iabetes: 5.7 - 6.4diabetes: >6.4glycemic control for adults with diabetes: <7.0 Hemoglobin [Mass/volume] in BloodOrdered By: Claudia Ellington on 07-31-2022 Hemoglobin (Bld) [Mass/Vol] 12.7 g/dL 12.0-16.0 [facility] Iron [Mass/volume] in Serum or PlasmaOrdered By: Claudia Ellington on 07-31-2022 Iron [Mass/Vol] 74 ug/dL 40-150 [facility] Leukocytes [#/volume] correc gamaliel for nucleated erythrocytes in Blood by Automated counOrdered By: Claudia Ellington on 07-31-2022 WBC corrected for nucl RBC Auto (Bld) [#/Vol] 8.3 10*3/uL 4.5-13.5 [facility] Lymphocytes Auto (Bld) [#/Vo l]Ordered By: Claudia Ellington on 07-31-2022 Lymphocytes (Bld) [#/Vol] 2.3 10*3/uL 1.20-4.8 [facility] Lymphocytes/100 WBC Auto (Bl d)Ordered By: Claudia Ellington on 07-31-2022 Lymphocytes/100 WBC (Bld) 27.9 % . [facility] MCH Auto (RBC) [Entitic mass ]Ordered By: Claudia Ellington on 07-31-2022 MCH (RBC) [Entitic mass] 28.4 pg 25.0-35.0 [facility] MCHC Auto (RBC) [Mass/Vol]Or dered By: Claudia Ellington on 07-31-2022 MCHC (RBC) [Mass/Vol] 32.9 g/dL 31.0-37.0 [facility] MCV Auto (RBC) [Entitic vol] Ordered By: Claudia Ellington on 07-31-2022 MCV (RBC) [Entitic vol] 86.6 fL 78-102 [facility] Monocytes Auto (Bld) [#/Vol] Ordered By: Claudia Ellington on 07-31-2022 Monocytes (Bld) [#/Vol] 0.4 10*3/uL 0.1-1.00 [facility] Monocytes/100 WBC Auto (Bld) Ordered By: Claudia Ellington on 07-31-2022 Monocytes/100 WBC (Bld) 5.0 % . [facility] Neutrophils Auto (Bld) [#/Vo l]Ordered By: Claudia Ellington on 07-31-2022 Neutrophils (Bld) [#/Vol] 5.5 10*3/uL 1.2-7.7 [facility] Neutrophils/100 WBC Auto (Bl d)Ordered By: Claudia Ellington on 07-31-2022 Neutrophils/100 WBC (Bld) 66.2 % . [facility] No Panel InformationOrdered By: Claudia Ellington on 07-31-2022 Estimated GFR () N/A [facility] Creatinine Clearance (Chem N/A [facility] Nucleated erythrocytes [Pres ence] in Blood by Automated countOrdered By: Claudia Ellington on 07-31-2022 Nucleated RBC Auto Ql (Bld) 0.1 /100{WBC} 0-0.5 [facility] Platelet mean volume Auto (B ld) [Entitic vol]Ordered By: Claudia Ellington on 07-31-2022 Platelet mean volume (Bld) [Entitic vol] 7.5 fL 6.3-10.7 [facility] Platelets Auto (Bld) [#/Vol] Ordered By: Claudia Ellington on 07-31-2022 Platelets (Bld) [#/Vol] 420 10*3/uL 150-450 [facility] Protein [Mass/volume] in Ser um or PlasmaOrdered By: Claudia Ellington on 07-31-2022 Protein [Mass/Vol] 6.5 g/dL 6.1-7.9 [facility] RBC Auto (Bld) [#/Vol]Ordere d By: Claudia Ellington on 07-31-2022 RBC (Bld) [#/Vol] 4.45 10*6/uL 4.10-5.10 [facility] Serum or plasma alanine lucas otransferase measurement without P-5'-P (enzymatic activiOrdered By: Claudia Ellington on 07-31-2022 ALT No additional P-5'-P [Catalytic activity/Vol] 12 U/L 10-60 [facility] Serum or plasma albumin/glob ulin mass ratioOrdered By: Claudia Ellington on 07-31-2022 Albumin/Globulin [Mass ratio] 1.0 {ratio} [facility] Serum or plasma alkaline rosmery sphatase measurement (enzymatic activity/volume)Ordered By: Claudia Ellington on 07-31-2022 ALP [Catalytic activity/Vol] 49 U/L 32-92 [facility] Serum or plasma anion gap de terminationOrdered By: Claudia Ellington on 07-31-2022 Anion gap [Moles/Vol] 11.2 mmol/L 6.0-15.0 [facility] Serum or plasma aspartate am inotransferase measurement (enzymatic activity/volume)Ordered By: Claudia Ellington on 07-31-2022 AST [Catalytic activity/Vol] 13 U/L 10-42 [facility] Serum or plasma calcium trish urement (mass/volume)Ordered By: lCaudia Ellington on 07-31-2022 Calcium [Mass/Vol] 9.2 mg/dL 8.2-10.2 [facility] Serum or plasma chloride klarissa surement (moles/volume)Ordered By: Claudia Ellington on 07-31-2022 Chloride [Moles/Vol] 104 mmol/L 95-[address] [facility] Serum or plasma glucose trish urement (mass/volume)Ordered By: Claudia Ellington on 07-31-2022 Glucose [Mass/Vol] 96 mg/dL 70-100 [facility] Comment on above: ADA recommended refe rence rangeRandom Glucose Reference Range is dependent on time and content of last meal. Glucose of more than 200 mg/dL in a nonstressed, ambulatory subject supports the diagnosis of Diabetes Mellitus. Serum or plasma high density lipoprotein (HDL) cholesterol measurementOrdered By: Claudia Ellington on 07-31-2022 Cholesterol in HDL [Mass/Vol] 78 mg/dL 35-85 [facility] Comment on above: HDL CHOL ATP-III CLA SSIFICATION Cardiovascular RiskHDL > or equal to 60 mg/dL LOWHDL < 40 mg/dL HIGH Serum or plasma potassium me asurement (moles/volume)Ordered By: Claudia Ellington on 07-31-2022 Potassium [Moles/Vol] 4.0 mmol/L 3.5-5.1 [facility] Serum or plasma sodium measu rement (moles/volume)Ordered By: Claudia Ellington on 07-31-2022 Sodium [Moles/Vol] 137 mmol/L 138-145 [facility] Serum or plasma total biliru bin measurement (mass/volume)Ordered By: Claudia Ellington on 07-31-2022 Bilirubin [Mass/Vol] 0.5 mg/dL 0.3-1.[address] [facility] Serum or plasma total carbon dioxide measurement (moles/volume)Ordered By: Claudia Ellington on 07-31-2022 CO2 [Moles/Vol] 25.8 mmol/L 22.0-30.0 [facility] Serum or plasma total choles terol/high density lipoprotein (HDL) cholesterol mass ratOrdered By: Claudia Ellington on 07-31-2022 Cholesterol.total/Chol esterol in HDL [Mass ratio] 3.4 {ratio} <5.0 [facility] Serum or plasma urea nitroge n measurement (mass/volume)Ordered By: Claudia Ellington on 07-31-2022 Urea nitrogen [Mass/Vol] 18 mg/dL 9-23 [facility] TSH DL <= 0.005 mIU/L QnOrde red By: Claudia Ellington on 07-31-2022 TSH Qn 3.47 m[IU]/L 0.45-5.33 [facility] Thyroxine (T4) free [Mass/vo lume] in Serum or PlasmaOrdered By: Claudia Ellington on 07-31-2022 Free T4 [Mass/Vol] 1.03 ng/dL 0.61-1.12 [facility] Triglyceride [Mass/volume] i n Serum or PlasmaOrdered By: Claudia Ellington on 07-31-2022 Triglyceride [Mass/Vol] 89 mg/dL 35-149 [facility] Comment on above: TRIG ATP III CLASSIF ICATIONTRIG less than 150 mg/dL NormalTRIG 150-199 mg/dL Borderline highTRIG 200-500 mg/dL High TRIG greater than 500 mg/dL Very highStandard traceable to the Center for Disease Conrtrol and Prevention (CDC) test method. WBC Auto (Bld) [#/Vol]Ordere d By: Claudia Ellington on 07-31-2022 WBC (Bld) [#/Vol] 8.3 10*3/uL 4.5-13.5 [facility] Covid-19 PCR (CVDTB)on 07-04 SARS-CoV-2 (COVID-19) RNA CHRISTIAN+probe Ql (Unsp spec) Not detected Normal NOT DETECTED [facility] Comment on above: Result Comment: When diagnostic [...] for this test is supported by the [place] of Health and Human Service's declaration that [...] used). Performed By: #### C VDTBH #### [facility] [address] [place] [address] Dr. Tara Jackson INFLUENZA A AND B AGon 07-23 INFLUENZA A AG Negative Normal NEGATIVE SEE COMMENT [facility] Comment on above: Performed By: #### I NFLUAB #### [facility] [address] [address] [address] Tara Jackson INFLUENZA B AG Negative Normal NEGATIVE SEE COMMENT [facility] Comment on above: Performed By: #### I NFLUAB #### [facility] [address] [address] [address] Tara Jackson INTERNAL CONTROLS Within Normal Limits Normal Wi thin Normal Limits [facility] Comment on above: Performed By: #### I NFLUAB #### [facility] [address] [place], [place] [address] Dr. Tara Jackson RSVon 07-23-2022 RSV AG Negative Normal NEGATIVE [facility] Comment on above: Performed By: #### R SV #### [facility] [address] [place], [place] [address] Dr. Tara Jackson CHEMISTRYOrdered By: SYSTEM SYSTEM on 07-08-2022 Amphetamines [...] mg/mg Normal 10 - 20 [facility]on SARS-CoV-2 (COVID-19) RNA CHRISTIAN+probe Ql (Unsp spec) Not detected Normal NOT DETECTED [facility] Comment on above: Result Comment: This test is not yet approved or cleared by the [place] FDA. When there are no FDA-approved or cleared tests available, and other criteria are met, FDA can make tests available under an emergency access mechanism called an Emergency Use Authorization (EUA). The EUA for this test is supported by the [place] of Health and Human Service's (HHS's) declaration [...] consistent with SARS-CoV-2. Performed By: #### C [facility] #### [facility] [address] [place] [address] Dr. Tara Jackson HEMATOLOGYOrdered By: SYSTEM SYSTEM on 07-08-2022 Basophils/100 [...] 53.9 % Normal 36.0 - 75.0 % [facility] HemeAutoSS Neutrophils/Leukocytes Auto (Bld) [Pure # fraction] 4.7 E9/L Normal 1.3 - 6.0 E9/L [facility] HemeAutoSS HEMATOLOGYOrdered By: Scottie Smart on 07-08-2022 Erythrocyte distribution width (RBC) [Ratio] 13.3 % Normal 11.5 - 14.0 % [facility] HemeAutoSS Hematocrit (Bld) [Volume fraction] 34.9 % Low 36.0 - 47.0 % [facility] HemeAutoSS Hemoglobin (Bld) [Mass/Vol] 11.6 g/dL Low 12.0 - 15.0 gm/dL [facility] HemeAutoSS MCH (RBC) [Entitic mass] 28.3 pg Normal 26.0 - 32.0 pg [facility] HemeAutoSS MCHC (RBC) [Mass/Vol] 33.1 g/dL Normal 32.0 - 36.0 gm/dL [facility] HemeAutoSS MCV (RBC) [Entitic vol] 85.5 fL Normal 78.0 - 95.0 fL [facility] HemeAutoSS Platelet mean volume (Bld) [Entitic vol] 7.2 fL Normal 6.0 - 9.5 fL [facility] HemeAutoSS Platelets (Bld) [#/Vol] 304.0 E9/L Normal 150.0 - 450.0 E9/L [facility] HemeAutoSS RBC (Bld) [#/Vol] 4.1 E12/L Normal 4.1 - 5.3 E12/L [facility] HemeAutoSS WBC corrected for nucl RBC Auto (Bld) [#/Vol] 8.7 E9/L Normal 4.0 - 10.5 E9/L [facility] HemeAutoSS INFLUENZA A AND B AGon 07-08 [facility]AN [facility] SEE BELOW Normal [facility] Comment on above: Result Comment: Nega tive for Flu A protein angiten. Infection due to Flu A cannot be ruled out. Flu A angiten in the sample may be below the detection limit of the test. Performed By: #### I NFLUAB #### [facility] [address] [place] [address] Dr. Tara Jackson [facility] SEE BELOW Normal [facility] Comment on above: Result Comment: Nega tive for Flu B protein antigen. Infection due to Flu B cannot be ruled out. Flu B antigen in the sample may be below the detection limit of the test. Performed By: #### I NFLUAB #### [facility] [address] [address] [address] Tara Jackson INFLUENZA A AG Negative Normal NEGATIVE SEE COMMENT [facility] Comment on above: Performed By: #### I NFLUAB #### [facility] [address] [place] [address] Dr. Tara Jackson INFLUENZA B AG Negative Normal NEGATIVE SEE COMMENT [facility] Comment on above: Performed By: #### I NFLUAB #### [facility] [address] [place] [address] Dr. Tara Jackson INTERNAL CONTROLS Within Normal Limits Normal Wi thin Normal Limits [facility] Comment on above: Performed By: #### I NFLUAB #### [facility] [address] [place] [address] Dr. Tara Jackson MICRO OTHER TESTSOrdered By: Chuck Jackson on 07-08-2022 S. pyogenes Ag IA.rapid Ql (Throat) Negative (07/08/22 8:55 PM) Normal Negative [facility] SEROLOGYOrdered By: Chuck harrison on 07-08-2022 HCG.beta subunit (U) [Moles/Vol] Negative Normal [facility] Man Sero URINALYSISOrdered By: Chuck hall on 07-08-2022 Bilirubin [...] PM) Normal Negative [facility] UA Auto SS Alix.plasma/Alix .RBC (Bld) [Mass ratio] 0-3 /HPF Normal 0-3/HPF [facility]A Auto SS Nitrite Ql (U) Negative (07/08/22 8:50 PM) Normal Negative [facility]A Auto SS pH (U) 6.5 *NA* (07/08/22 8:50 PM) Invalid Interpretation Code 5.0 - 9.0 [facility] UA Auto SS Protein (U) [Mass/Vol] Negative (07/08/22 8:50 PM) Normal Negative [facility] UA Auto SS Specific gravity (U) [Rel density] 1.015 *NA* (07/08/22 8:50 PM) Invalid Interpretation Code 1.005 - 1.030 [facility] UA Auto SS UA Spec Desc Clean Catch (07/08/22 8:50 PM) Normal [facility] UA Auto SS Urobilinogen Qn (U) [id number] {Ed'U}/dL Normal 0.0 - 1.0 EU/dL [facility]A Auto SS WBC Auto Ql (U) Negative (07/08/22 8:50 PM) Normal Negative [facility] Auto SS WBC LM.HPF (Urine sed) [#/Area] 0-5 /HPF Normal 0-5/HPF [facility] UA Auto SS CHEMISTRYOrdered By: SYSTEM SYSTEM on 07-02-2022 Anion gap [Moles/Vol] 10 mmol/L Normal 6 - 16 mEq/L [facility] Remisol Calcium [Mass/Vol] 8.7 mg/dL Low 8.9 - 11. 1 mg/dL [facility] Remisol Chloride [Moles/Vol] 100 mmol/L Low 101 - 1 11 mmol/L [facility] Remisol CO2 [Moles/Vol] 26 mmol/L Normal 21 - 31 mmol/L [facility] Remisol Creatinine [Mass/Vol] 0.6 mg/dL Normal 0.5 - 1.3 mg/dL [facility] Remisol Glucose [Mass/Vol] 96 mg/dL Normal 55 - 199 mg/dL [facility] Potassium [Moles/Vol] 4.0 mmol/L Normal 3.5 - 5.3 mmol/L [facility] Sodium [Moles/Vol] 132 mmol/L Low 135 - 145 mmol/L [facility] Remisol Urea nitrogen [Mass/Vol] 14 mg/dL Normal 5 - 21 mg/dL [facility] Urea nitrogen/Creatinine [Mass ratio] 23 mg/mg High 10 - 20 [facility] CHEMISTRYOrdered By: Lab ROP User on 07-02-2022 Glucose [Mass/Vol] 100 mg/dL High 55 - 99 mg/dL [facility] POC Subsection Comment on above: Result Comment: Shanique percy Meter POC Device SN [id number] Invalid Interpretation Code [facility] POC Subsection POC User ID [id number] Invalid Interpretation Code [facility] POC Subsection POC Username CAL NOLASCO Invalid Interpretation Code [facility] POC Subsection HEMATOLOGYOrdered By: SYSTEM SYSTEM on 07-02-2022 Basophils/100 [...] 35.4 % Low 36.0 - 47.0 % [facility] HemeAutoSS Hemoglobin (Bld) [Mass/Vol] 12.6 g/dL Normal 12.0 - 15.0 gm/dL [facility] HemeAutoSS MCH (RBC) [Entitic mass] 29.4 pg [...] 11.5 E9/L High 4.0 - 10.5 E9/L [facility] HemeAutoSS INFLUENZA A AND B AGon 06-25 [facility]FLUSAN [facility] SEE BELOW Normal [facility] Comment on above: Result Comment: Nega tive for Flu A protein angiten. Infection due to Flu A cannot be ruled out. Flu A angiten in the sample may be below the detection limit of the test. Performed By: #### C VDTB #### [facility] [address] [place] [address] Dr. T[facility] Normal [facility] Comment on above: Result Comment: Nega tive for Flu B protein antigen. Infection due to Flu B cannot be ruled out. Flu B antigen in the sample may be below the detection limit of the test. Performed By: #### C VDTBH #### [facility] [address] [place] [address] Dr. Tara Jackson INFLUENZA A AG Negative Normal NEGATIVE SEE COMMENT [facility] Comment on above: Performed By: #### C VDTBH #### [facility] [address] [place] [address] Dr. Tara Jackson INFLUENZA B AG Negative Normal NEGATIVE SEE COMMENT [facility] Comment on above: Performed By: #### C VDTBH #### [facility] [address] [place], [place] [address] Dr. Tara Jackson INTERNAL CONTROLS Within Normal Limits Normal Wi thin Normal Limits [facility] Comment on above: Performed By: #### C VDTBH #### [facility] [address] [place] [address] Dr. Tara Jackson Covid-19 PCR ([facility])on 06-03 SARS-CoV-2 (COVID-19) RNA CHRISTIAN+probe Ql (Unsp spec) Not detected Normal NOT DETECTED [facility] Comment on above: Result Comment: This test is not yet approved or cleared by the [place] FDA. When there are no FDA-approved or cleared tests available, and other criteria are met, FDA can make tests available under an emergency access mechanism called an Emergency Use Authorization (EUA). The EUA for this test is supported by the [place] of Health and Human Service's (HHS's) declaration [...] SARS-CoV-2. Performed By: #### I NFLUAB #### [facility] [address] [place] [address] Dr. Tara Jackson Covid-19 PCR ([facility])on 05-04 SARS-CoV-2 (COVID-19) RNA CHRISTIAN+probe Ql (Unsp spec) Not detected Normal NOT DETECTED [facility] Comment on above: Result Comment: This test is not yet approved or cleared by the [place] FDA. When there are no FDA-approved or cleared tests available, and other criteria are met, FDA can make tests available under an emergency access mechanism called an Emergency Use Authorization (EUA). The EUA for this test is supported by the [place] of Health and Human Service's (HHS's) declaration [...] SARS-CoV-2. Performed By: #### I NFLUAB #### [facility] [address] [place] [address] Dr. Tara Jackson AMYLASEon 04-26-2022 Amylase [Catalytic activity/Vol] 17 U/L Critically low 25-115 [facility] Comment on above: Performed By: #### I NFLUAB #### [facility] [address] [place] [address] Dr. Tara Jackson CBC AUTO DIFFon 04-26-2022 BASO # 0.0 103/ul Normal 0.0-0.1 [facility] Comment on above: Performed By: #### C VDTBH #### [facility] [address] [place] [address] Dr. Tara Jackson Basophils/100 WBC (Bld) 0.7 % Normal 0.2-2.0 [facility] Comment on above: Performed By: #### C VDTBH #### [facility] [address] [place] [address] Dr. Tara Jackson EO # 0.3 103/ul Normal 0.0-0.7 [facility] Comment on above: Performed By: #### C VDTBH #### [facility] [address] [place] [address] Dr. Tara Jackson Eosinophils/100 WBC (Bld) 5.1 % Normal 0.9-7.0 [facility] Comment on above: Performed By: #### C VDTBH #### [facility] [address] [place] [address] Dr. Tara Jackson Erythrocyte distribution width (RBC) [Ratio] 13.5 % Normal 11.0-15.0 [facility] Comment on above: Performed By: #### C VDTBH #### [facility] [address] [place] [address] Dr. Tara Jackson Hematocrit (Bld) [Volume fraction] 37.9 % Normal 36.0-48.0 [facility] Comment on above: Performed By: #### C VDTBH #### [facility] [address] [place] [address] Dr. Tara Jackson Hemoglobin (Bld) [Mass/Vol] 12.4 g/dL Normal 12.0-16.0 [facility] Comment on above: Performed By: #### C VDTBH #### [facility] [address] [place] [address] Dr. Tara Jackson IG # 0.01 10e3/ul Normal 0.00-0.03 [facility] Comment on above: Performed By: #### C VDTBH #### [facility] [address] [place] [address] Dr. Tara Jackson IG % 0.2 % Normal 0.0-0.5 [facility] Comment on above: Performed By: #### C VDTBH #### [facility] [address] [place] [address] Dr. Tara Jackson LYMPH # 1.6 103/ul Normal 1.2-3.8 [facility] Comment on above: Performed By: #### C VDTBH #### [facility] [address] [place] [address] Dr. Tara Jackson Lymphocytes/100 WBC (Bld) 28.8 % Normal 20.5-60.0 [facility] Comment on above: Performed By: #### C VDTBH #### [facility] [address] [place] [address] Dr. Tara Jackson MANUAL DIFF REQ NO Normal [facility] Comment on above: Performed By: #### C VDTBH #### [facility] [address] [place] [address] Dr. Tara Jackson MCH (RBC) [Entitic mass] 28.1 pg Normal 26.7-34.0 [facility] Comment on above: Performed By: #### C VDTBH #### [facility] [address] [place] [address] Dr. Tara Jackson MCHC (RBC) [Mass/Vol] 32.7 g/dL Normal 29.9-35.2 [facility] Comment on above: Performed By: #### C VDTBH #### [facility] [address] [place] [address] Dr. Tara Jackson MCV (RBC) [Entitic vol] 85.7 fL Normal 79.1-95.6 [facility] Comment on above: Performed By: #### C VDTBH #### [facility] [address] [place] [address] Dr. Tara Jackson MONO # 0.3 103/ul Normal 0.3-0.8 [facility] Comment on above: Performed By: #### C VDTBH #### [facility] [address] [place] [address] Dr. Tara Jackson Monocytes/100 WBC (Bld) 6.2 % Normal 1.7-12.0 [facility] Comment on above: Performed By: #### C VDTBH #### [facility] [address] [place] [address] Dr. Tara Jackson NEUT # 3.2 103/ul Normal 1.4-6.5 [facility] Comment on above: Performed By: #### C VDTBH #### [facility] [address] [place] [address] Dr. Tara Jackson Neutrophils/100 WBC (Bld) 59.0 % Normal 43.0-75.0 [facility] Comment on above: Performed By: #### C VDTBH #### [facility] [address] [place] [address] Dr. Tara Jackson Platelet mean volume (Bld) [Entitic vol] 9.7 fL Normal 9.5-13.5 [facility] Comment on above: Performed By: #### C VDTBH #### [facility] [address] [place] [address] Dr. Tara Jackson PLT 382 103/ul Normal 150-450 [facility] Comment on above: Performed By: #### C VDTBH #### [facility] [address] [place] [address] Dr. Tara Jackson RBC 4.42 106/ul Normal 3.40-5.30 [facility] Comment on above: Performed By: #### C VDTBH #### [facility] [address] [place] [address] Dr. Tara Jackson WBC 5.5 103/ul Normal 4.0-11.0 [facility] Comment on above: Performed By: #### C VDTBH #### [facility] [address] [place] [address] Dr. Tara Jackson IRONon 04-26-2022 Iron [Mass/Vol] 55.0 ug/dL Normal 50.0-170.0 [facility] Comment on above: Performed By: #### C VDTBH #### [facility] [address] [place] [address] Dr. Tara Jackson LIPASEon 04-26-2022 Lipase [Catalytic activity/Vol] 191.0 U/L Normal 73.0-393.0 [facility] Comment on above: Performed By: #### I NFLUAB #### [facility] [address] [place] [address] Dr. Tara Jackson PREG QUANT HCGon 04-26-2022 HCG QUANT <1 Normal [facility] Comment on above: Performed By: #### I NFLUAB #### [facility] [address] [place] [address] Dr. Tara Jackson HCG RANGE SEE BELOW Normal [facility] Comment on above: Result Comment: 5-50 0.2-1 WEEK 50-500 1-2 WEEKS 100-5,000 2-3 WEEKS 500-10,000 3-4 WEEKS 1,000-50,000 4-5 WEEKS 10,000-100,000 5-6 WEEKS 15,000-200,000 6-8 WEEKS 10,000-100,000 2-3 MONTHS Performed By: #### I NFLUAB #### [facility] [address] [address] [address] Tara Jackson PROF 14(COMP METB)on 022 Albumin [Mass/Vol] 3.0 g/dL Critically low 3.4-5.0 [facility] Comment on above: Performed By: #### I NFLUAB #### [facility] [address] [address] [address] Tara Jackson Albumin/Globulin [Mass ratio] 0.7 {ratio} Normal [facility] Comment on above: Performed By: #### I NFLUAB #### [facility] [address] [place] [address] Dr. Tara Jackson ALP [Catalytic activity/Vol] 58 U/L Critically low 65-260 [facility] Comment on above: Performed By: #### I NFLUAB #### [facility] [address] [address] [address] Tara Jackson ALT [Catalytic activity/Vol] 19 U/L Normal 14-59 [facility] Comment on above: Performed By: #### I NFLUAB #### [facility] [address] [address] [address] Tara Jackson Anion gap [Moles/Vol] 11.1 mmol/L Normal [facility] Comment on above: Performed By: #### I NFLUAB #### [facility] [address] [place] [address] Dr. Tara Jackson AST [Catalytic activity/Vol] 13 U/L Critically low 15-37 [facility] Comment on above: Performed By: #### I NFLUAB #### [facility] [address] [place] [address] Dr. Tara Jackson Bilirubin [Mass/Vol] 0.3 mg/dL Normal 0.2-1.0 [facility] Comment on above: Performed By: #### I NFLUAB #### [facility] [address] [address] [address] Tara Jackson Calcium [Mass/Vol] 8.7 mg/dL Normal 8.5-10.1 [facility] Comment on above: Performed By: #### I NFLUAB #### [facility] [address] [address] [address] Tara Jackson Chloride [Moles/Vol] 103 mmol/L Normal 98-107 [facility] Comment on above: Performed By: #### I NFLUAB #### [facility] [address] [address] [address] Tara Jackson CO2 [Moles/Vol] 25.0 mmol/L Normal 21.0-32.0 [facility] Comment on above: Performed By: #### I NFLUAB #### [facility] [address] [address] [address] Tara Jackson Creatinine [Mass/Vol] 0.88 mg/dL Normal 0.55-1.02 [facility] Comment on above: Performed By: #### I NFLUAB #### [facility] [address] [address] [address] Tara Jackson Globulin (S) [Mass/Vol] 4.6 g/dL Normal [facility] Comment on above: Performed By: #### I NFLUAB #### [facility] [address] [address] [address] Tara Jackson Glucose [Mass/Vol] 91 mg/dL Normal 74-106 [facility] Comment on above: Performed By: #### I NFLUAB #### [facility] [address] [address] [address] Tara Jackson Potassium [Moles/Vol] 4.1 mmol/L Normal 3.5-5.1 [facility] Comment on above: Performed By: #### I NFLUAB #### [facility] [address] [address] [address] Tara Jakcson Protein [Mass/Vol] 7.6 g/dL Normal 6.4-8.2 [facility] Comment on above: Performed By: #### I NFLUAB #### [facility] [address] [address] [address] Tara Jackson Sodium [Moles/Vol] 135 mmol/L Critically low 136-[address] [facility] Comment on above: Performed By: #### I NFLUAB #### [facility] [address] [address] [address] Tara Jackson Urea nitrogen [Mass/Vol] 9.0 mg/dL Normal 6.4-19.3 [facility] Comment on above: Performed By: #### I NFLUAB #### [facility] [address] [address] [address] Tara Jackson Urea nitrogen/Creatinine [Mass ratio] 10.2 mg/mg Normal [facility] Comment on above: Performed By: #### I NFLUAB #### [facility] [address] [address] [address] Tara Jackson CHEMISTRYOrdered By: SYSTEM SYSTEM on 04-04-2022 Cholesterol [Mass/Vol] 210 mg/dL High 120 - 200 mg/dL [facility] Remisol Cholesterol in HDL [Mass/Vol] 45 mg/dL Invalid Interpretation Code [facility] Remisol Cholesterol in LDL [Mass/Vol] 159 mg/dL High <=129mg/dL [facility] Cholesterol in VLDL [Mass/Vol] 20 mg/dL Normal 7 - 40 mg/dL [facility] Remisol Glucose post fast [Mass/Vol] 100 mg/dL High 55 - 99 mg/dL [facility] Remisol Triglyceride [Mass/Vol] 101 mg/dL Normal <=149mg/dL [facility] Remisol CHEMISTRYOrdered By: Valeriy Rivas on 04-04-2022 HbA1c (Bld) [Mass fraction] 5.3 % Normal <=5.9% [facility] ChemAutoSS Covid-19 PCR ([facility]VDTB[facility])on 03-03 SARS-CoV-2 (COVID-19) RNA CHRISTIAN+probe Ql (Unsp spec) Not detected Normal NOT DETECTED [facility] Comment on above: Result Comment: This test is not yet approved or cleared by the [place] FDA. When there are no FDA-approved or cleared tests available, and other criteria are met, FDA can make tests available under an emergency access mechanism called an Emergency Use Authorization (EUA). The EUA for this test is supported by the [place] of Health and Human Service's (HHS's) declaration [...] SARS-CoV-2. Performed By: #### I NFLUAB #### [facility] [address] [place] [address] Dr. Tara Jackson Covid-19 PCR ([facility])on SARS-CoV-2 (COVID-19) RNA CHRISTIAN+probe Ql (Unsp spec) Not detected Normal NOT DETECTED [facility] Comment on above: Result Comment: This test is not yet approved or cleared by the [place] FDA. When there are no FDA-approved or cleared tests available, and other criteria are met, FDA can make tests available under an emergency access mechanism called an Emergency Use Authorization (EUA). The EUA for this test is supported by the [place] of Health and Human Service's (HHS's) declaration [...] SARS-CoV-2. Performed By: #### I NFLUAB #### [facility] [address] [address] [address] Tara Jackson Covid-19 PCR (CVDTB)on 01-01 SARS-CoV-2 (COVID-19) RNA CHRISTIAN+probe Ql (Unsp spec) Not detected Normal NOT DETECTED [facility] Comment on above: Result Comment: This test is not yet approved or cleared by the [place] FDA. When there are no FDA-approved or cleared tests available, and other criteria are met, FDA can make tests available under an emergency access mechanism called an Emergency Use Authorization (EUA). The EUA for this test is supported by the Passenger [employer] of Health and Human Service's (HHS's) declaration [...] SARS-CoV-2. Performed By: #### I NFLUAB #### [facility] [address] [place] [address] Dr. Tara Jackson SYMPTOMATIC COVID-19 ANTIGEN on 01-17-2022 EUA Statement SEE BELOW Normal [facility] Comment on above: Result Comment: [...] sooner. Performed By: #### C VDAGS #### [facility] [address] [address] [address] Tara Jackson SARS-CoV-2 (COVID-19) RNA CHRISTIAN+probe Ql (Unsp spec) Negative Normal NEGATIVE [facility] Comment on above: Performed By: #### C VDAGS #### [facility] [address] [address] [address] Tara Jackson CHEMISTRYOrdered By: SYSTEM SYSTEM [...] 6.5 E9/L Normal 4.0 - 10.5 E9/L [facility] HemeAutoSS MICRO OTHER TESTSOrdered By: Debby Cleveland on 12-04-2021 Rapid COV Int NEG Ctl Pass (12/04/21 11:18 PM) Normal [facility] Man Sero Rapid COV Int POS Ctl Pass (12/04/21 11:18 PM) Normal [facility] Man [facility]ero SARS-CoV+SARS-CoV-2 (COVID-19) Ag IA.rapid Ql (Resp) Not Detected (12/04/21 11:18 PM) Normal Not Detected [facility] SEROLOGYOrdered By: Debby Cleveland on 12-04-2021 Beta hCG Ql Negative (12/04/21 6:06 PM) Normal [facility] Peds Pulmonary Medicine- Off ice [...] only phone number listed in the computer ([phone]) went straight to the mother's voicemail and it was not taking messages. Called back and requested to call another number - [phone] Today (10/24/2019) I did a telephone conference [...] update: no changes 1 Refills: yes Pharmacy: [facility] in [place] PCP: same 1 Amended By: Martina Bedolla; [...] moderate persistent; YANNA = N; Sent To: [facility]Y #6173 Asthma, moderate persistent, Chronic cough Renew: Cetirizine HCl - 10 MG Oral Tablet; TAKE 1 TABLET BY MOUTH DAILY Rx By: Martina Bedolla; Dispense: 0 Days ; #:1 X 30 Tablet Bottle; Refill: 3; For: Asthma, moderate persistent, Chronic cough; YANNA = N; Sent To: [facility]ARM[facility]Y #6173 Non-allergic rhinitis Renew: Fluticasone Propionate 50 MCG/ACT Nasal Suspension; USE 2 SPRAYS IN EACH NOSTRIL ONCE DAILY Rx By: Martina Bedolla; Dispense: 0 Days ; #:1 X 16 GM Bottle; Refill: 6; For: Non-allergic rhinitis; YANNA = N; Sent To: [facility] #6173 Signatures Electronically signed by : Martina Bedolla DO; Oct 26 2019 3:32PM EST (Author) Normal [facility] Peds Pulmonary Medicine- Off ice Visiton 06-02-2019 [...] or you have questions about the plan ([phone]). Please call us if you are having [...] HPI Family/Social history update: no changes Refills: janna dominguez Pharmacy: same PCP: same Flu vaccine?: has [...] Behavior appropriate for age. Results/Data Asthma Action [id number] 01:32PMartina Barron Test NameResultFlagReference See Scanned DocumetSee Scanned Document Summary / No summary entered : No summary entered Documents attached : [facility] Action Plan - Martina Bedolla; Enc: [id number] - Appointment - Martina Bedolla - (Pediatric Pulmonology) (Result Document) Spirometry loops personally reviewed. Test done today shows: rejected Orders Asthma, moderate persistent Renew: Dulera 200-5 MCG/ACT Inhalation Aerosol; Inhale 2 puffs twice daily with a spacer Rx By: Martina Bedolla; Dispense: 0 Days ; #:1 X 13 GM Inhaler; Refill: 6;For: Asthma, moderate persistent; YANNA = N; Ver[facility]; Last Updated By: [employer]; 05/30/2019 3:29:40 PM Renew: Ventolin HFA 108 (90 Base) MCG/ACT Inhalation Aerosol Solution; Inhale 2-4 puffs every 4-6 hours as needed for cough, wheezing and shortness of breath and prior to exercise Rx By: Martina Bedolla; Dispense: 0 Days ; #:1 X 18 GM Inhaler; Refill: 6;For: Asthma, moderate persistent; YANNA = N; Verified [facility]; Last Updated By: [employer]; 05/30/2019 3:29:35 PM Attending Note Attestation: Comments/Additional [...] Jun 01 2019 11:38PM EST (Author) Normal [employer] Peds Pulmonary Medicine- Off ice Visiton 02-13-2019 [...] or you have questions about the plan ([phone]). Please call us if you are having [...] none Pharmacy: [facility] PCP: Rakel Active Problems Allergic rhinitis (477.9) (J30.9) Asthma, [...] Plan; Status:Complete; Done: 26Jan2019 02:00PM Performed:In Office; Due:[id number]; Last Updated By:Monica Rowan; 01/26/2019 2:00:50 PM;Ordered; [...] Feb 13 2019 6:39PM EST (Author) Normal [facility] [employer] Peds Pulmonary Medicine- Off ice Visiton 11-24-2018 [...] update: not doing track this season. Refills: [facility] Pharmacy: same PCP: Dr. Ellington Flu vaccine?: [...] persistent; YANNA = N; Verified Transmission to [facility] #2966; Last Updated By: Duarte Orta; 01/25/2018 2:29:37 [...] SPRAYS IN EACH NOSTRIL ONCE DAILY; Therapy: [id number] to (Last Rx:02Sep2018) Requested for: 02Sep2018 Ordered Rx By: Martina Bedolla; Dispense: 0 Days ; #:1 X 16 GM Bottle; Refill: 5;For: Non-allergic rhinitis; YANNA = N; Print Rx Ibuprofen 800 MG Oral Tablet; Therapy: 26Jan2018 to Recorded Dispense: 20 Days ; #:60; Refill: 0; YANNA = N; Record; Last Updated By: Arminda Linda; 03/18/2018 2:27:47 PM 08/22 1-20 MG-MCG Oral Tablet; Therapy: [id number] to Recorded Dispense: 28 Days ; #:28; Refill: 0; YANNA = N; Record; Last Updated By: Arminda Linda; 03/18/2018 2:27:47 PM QUEtiapine Fumarate 200 MG Oral Tablet; TAKE 1 TABLET EVERY DAY AT BEDTIME; Therapy: [id number] to Recorded Rx By: PAZ; Dispense: 30 Days ; #:30; Refill: 0; YANNA = N; Record; Last Updated By: Martina Bedolla; 01/25/2018 2:11:18 PM Vitals Vital Signs Recorded: 29Oct2018 09:33AM Heart Rate78 Pqthukgmcoh88 Nejnzxui377 Vyvpwiinm97 Fcwaar876 cm 2-20 Stature Uouxnqdkci91 % Wibnlj94 kg 2-20 Weight Rmbaornczs72 % BMI Diyqdbctav99.84 BMI Lhboqhcjby09 % BSA Calculated1.71 O2 Aglmbmmrfi22 Physical Exam Constitutional: awake, alert and cooperative. [...] persistent; YANNA = N; Verified Transmission to [facility]; Last Updated By: Shana OrtaTravelZeeky; 10/29/2018 1:37:58 PM Provider Impressions Asthma Severity: [...] or you have questions about the plan ([phone]). Please call us if you are having [...] date of service which is 10/29/2018. Normal [facility] Vital Signs Date Time Vital Sign Value Performing Clinician Facility 01-22-2024 09:44-0400 Blood Pressure Location Zenon Hernandez [facility] 01-22-2024 09:44-0400 bodymassindex 2.28 kg/m2 Zenon Hernandez [facility] Comment on above: Result Comment: ^~:!ZScore Source -[facility] 01-22-2024 09:44-0400 Diastolic blood pressure 78 mm[Hg] Zenon Hernandez [facility] 01-22-2024 09:44-0400 Heart rate 94 /min Mohamad Mouchli [facility] 01-22-2024 09:44-0400 Height/Length Percentile 60.60 1 Zenon Simonli [facility] Comment on above: Result Comment: ^~:!Percentile Source -[facility] 01-22-2024 09:44-0400 Height/Length Z-Score 0.27 1 Zenon Simonli [facility] Comment on above: [facility] 01-22-2024 09:44-0400 Respiratory rate 16 /min Zenon Simonli [facility] 01-22-2024 09:44-0400 Systolic blood pressure 111 mm[Hg] Zenon Simonli [facility] 01-22-2024 09:44-0400 Weight Percentile 99.42 % Zenon Simonli [facility] Comment on above: Result Comment: ^~:!Percentile [facility] 01-22-2024 09:44-0400 Weight Z-Score 2.52 1 Zenon Simonli [facility] Comment on above: Result Comment: ^~:!ZScore [facility] 01-13-2024 21:06-0400 Body temperature 98.06 [degF] [facility] 01-13-2024 21:06-0400 Diastolic blood pressure 93 mm[Hg] [facility] 01-13-2024 21:06-0400 Heart rate 71 /min [facility] 01-13-2024 21:06-0400 Mean blood pressure 105 mm[Hg] [facility] 01-13-2024 21:06-0400 Respiratory rate 18 /min [facility] 01-13-2024 21:06-0400 SaO2% (BldA) [Mass fraction] 96 % [facility] 01-13-2024 21:06-0400 Systolic blood pressure 130 mm[Hg] [facility] 01-13-2024 20:40-0400 Diastolic blood pressure 90 mm[Hg] [facility] 01-13-2024 20:40-0400 Heart rate 74 /min [facility] 01-13-2024 20:40-0400 Mean blood pressure 112 mm[Hg] [facility] 01-13-2024 20:40-0400 Systolic blood pressure 156 mm[Hg] [facility] 01-13-2024 19:43-0400 Diastolic blood pressure 84 mm[Hg] [facility] 01-13-2024 19:43-0400 Heart rate 76 /min [facility] 01-13-2024 19:43-0400 Mean blood pressure 100 mm[Hg] [facility] 01-13-2024 19:43-0400 Respiratory rate 18 /min [facility] 01-13-2024 19:43-0400 SaO2% (BldA) [Mass fraction] 97 % [facility] 01-13-2024 19:43-0400 Systolic blood pressure 131 mm[Hg] [facility] 01-13-2024 19:01-0400 Respiratory rate 16 /min [facility] 01-13-2024 19:01-0400 SaO2% (BldA) [Mass fraction] 97 % [facility] 01-13-2024 18:29-0400 Body temperature 98.42 [degF] [facility] 01-13-2024 18:29-0400 bodymassindex 2.3 kg/m2 [facility] Comment on above: Result Comment: ^~:!ZScore [facility] 01-13-2024 18:29-0400 Heart rate 75 /min [facility] 01-13-2024 18:29-0400 Height/Length Percentile 61.20 1 [facility] Comment on above: Result Comment: ^~:!Percentile Source -[facility] 01-13-2024 18:29-0400 Height/Length Z-Score 0.28 1 [facility] Comment on above: Result Comment: ^~:!ZScore [facility] 01-13-2024 18:29-0400 Weight Percentile 99.46 % [facility] Comment on above: Result Comment: ^~:!Percentile Source [facility] 01-13-2024 18:29-0400 Weight Z-Score 2.55 1 [facility] Comment on above: Result Comment: ^~:!ZScore [facility] 01-12-2024 17:20-0400 Diastolic blood pressure 91 mm[Hg] Radha Whipple [facility] 01-12-2024 17:20-0400 Heart rate 74 /min Radha Whipple [facility] 01-12-2024 17:20-0400 Mean blood pressure 108 mm[Hg] Radha Chaparroe [facility] 01-12-2024 17:20-0400 Respiratory rate 16 /min Radha Chaparroe [facility] 01-12-2024 17:20-0400 SaO2% (BldA) [Mass fraction] 100 % Radha Chaparroe [facility] 01-12-2024 17:20-0400 Systolic blood pressure 143 mm[Hg] Radha Chaparroe [facility] 01-12-2024 16:59-0400 Blood Pressure Location Radha Chaparroe [facility] 01-12-2024 16:59-0400 Diastolic blood pressure 91 mm[Hg] Radha Chaparroe [facility] 01-12-2024 16:59-0400 Heart rate 82 /min Radha Chaparroe [facility] 01-12-2024 16:59-0400 Mean blood pressure 108 mm[Hg] Radha Chaparroe [facility] 01-12-2024 16:59-0400 Respiratory rate 16 /min Radha Chaparroe [facility] 01-12-2024 16:59-0400 SaO2% (BldA) [Mass fraction] 100 % Radha Chaparroe [facility] 01-12-2024 16:59-0400 Systolic blood pressure 143 mm[Hg] Radha Chaparroe [facility] 01-12-2024 14:56-0400 Body temperature 98.6 [degF] Radha Chaparroe [facility] 01-12-2024 14:56-0400 bodymassindex 2.3 kg/m2 Radha Whipple [facility] Comment on above: Result Comment: ^~:!ZScore Source -[facility] 01-12-2024 14:56-0400 Diastolic blood pressure 86 mm[Hg] Radha Chaparroe [facility] 01-12-2024 14:56-0400 Heart rate 93 /min Radha Chaparroe [facility] 01-12-2024 14:56-0400 Height/Length Percentile 61.20 1 Radha Chaparroe [facility] Comment on above: Result Comment: ^~:!Percentile Source -[facility] 01-12-2024 14:56-0400 Height/Length Z-Score 0.28 1 Radha Whipple [facility] Comment on above: Result Comment: ^~:!ZScore [facility] 01-12-2024 14:56-0400 Respiratory rate 18 /min Radha Whipple [facility] 01-12-2024 14:56-0400 SaO2% (BldA) [Mass fraction] 99 % Radha Whipple [facility] 01-12-2024 14:56-0400 Systolic blood pressure 135 mm[Hg] Radha Whipple [facility] 01-12-2024 14:56-0400 Weight Percentile 99.46 % Radha Whipple [facility] Comment on above: Result Comment: ^~:!Percentile Source -[facility] 01-12-2024 14:56-0400 Weight Z-Score 2.55 1 Radha Whipple [facility] Comment on above: Result Comment: ^~:!ZScore [facility] 06-30-2023 13:40-0500 Body height 165.1 cm Valorie Hansen MD Work Phone: [facility] 06-30-2023 13:40-0500 Body mass index (BMI) [Percentile] Per age and sex 99.59 % Valorie Hansen MD Work Phone: [facility] 06-30-2023 13:40-0500 Body mass index (BMI) [Ratio] 43.4 kg/m2 Valorie Hansen MD Work Phone: [facility] 06-30-2023 13:40-0500 Body weight 118.3 kg Valorie Hansen MD Work Phone: [facility] 06-30-2023 13:40-0500 Respiratory rate 16 /min Valorie Hansen MD Work Phone: [facility] 05-13-2023 13:00-0400 Hourly Rounding Hasan AMIR [facility] 05-13-2023 13:00-0400 Promise to Return Hasan AMIR [facility] 05-13-2023 12:00-0400 Body temperature 98.24 [degF] Hasan AMIR [facility] 05-13-2023 12:00-0400 Diastolic blood pressure 84 mm[Hg] Hasan AMIR [facility] 05-13-2023 12:00-0400 Heart rate 76 /min Hasan AMIR [facility] 05-13-2023 12:00-0400 Hourly Rounding Hasan AMIR [facility] 05-13-2023 12:00-0400 Mean blood pressure 93 mm[Hg] Hasan AMIR [facility] 05-13-2023 12:00-0400 Promise to Return Hasan AMIR [facility] 05-13-2023 12:00-0400 Respiratory rate 14 /min Hasan AMIR [facility] 05-13-2023 12:00-0400 SaO2% (BldA) [Mass fraction] 96 % Hasan AMIR [facility] 05-13-2023 12:00-0400 Systolic blood pressure 112 mm[Hg] Hasan AMIR [facility] 05-13-2023 11:00-0400 Diastolic blood pressure 71 mm[Hg] Hasan AMIR [facility] 05-13-2023 11:00-0400 Heart rate 90 /min Hasan AMIR [facility] 05-13-2023 11:00-0400 Hourly Rounding Hasan AMIR [facility] 05-13-2023 11:00-0400 Mean blood pressure 84 mm[Hg] Hasan AMIR [facility] 05-13-2023 11:00-0400 Promise to Return Hasan AMIR [facility] 05-13-2023 11:00-0400 Respiratory rate 13 /min Hasan AMIR [facility] 05-13-2023 11:00-0400 SaO2% (BldA) [Mass fraction] 97 % Hasan AMIR [facility] 05-13-2023 11:00-0400 Systolic blood pressure 111 mm[Hg] Hasan AMIR [facility] 05-13-2023 10:00-0400 Diastolic blood pressure 86 mm[Hg] Hasan AMIR [facility] 05-13-2023 10:00-0400 Heart rate 75 /min Hasan AMIR [facility] 05-13-2023 10:00-0400 Mean blood pressure 97 mm[Hg] Hasan AMIR [facility] 05-13-2023 10:00-0400 Systolic blood pressure 119 mm[Hg] Hasan AMIR [facility] 05-13-2023 08:00-0400 Body temperature 98.78 [degF] Hasan AMIR [facility] 05-13-2023 06:00-0400 Blood Pressure Location Hasan AMIR [facility] 05-13-2023 05:27-0400 weight 2.47 1 Hasan AMIR [facility] Comment on above: Result Comment: ^~:!ZScore Source [facility] 05-13-2023 05:27-0400 Weight Percentile 99.33 % Hasan AMIR [facility] Comment on above: Result Comment: ^~:!Percentile Source [facility] 05-13-2023 04:00-0400 Body temperature 97.88 [degF] Hasan AMIR [facility] 05-12-2023 09:00-0400 weight 2.48 1 Hasan AMIR [facility] Comment on above: Result Comment: ^~:!ZScore Source [facility] 05-12-2023 09:00-0400 Weight Percentile 99.34 % Hasan AMIR [facility] Comment on above: Result Comment: ^~:!Percentile Source -[facility] 05-12-2023 06:18-0400 weight 2.46 1 Hasan AMIR [facility] Comment on above: Result Comment: ^~:!ZScore Source -[facility] ^~:!ZScore Source [facility] 05-12-2023 06:18-0400 Weight Percentile 99.30 % Hasan AMIR [facility] Comment on above: Result Comment: ^~:!Percentile Source -[facility] ^~:!Percentile Source -[facility] 05-11-2023 20:00-0400 Body temperature 97.88 [degF] Hasan AMIR [facility] 05-11-2023 08:01-0400 bodymassindex 2.34 kg/m2 Hasan AMIR [facility] Comment on above: Result Comment: ^~:!ZScore Source -[facility] 05-11-2023 08:01-0400 Height/Length Percentile 61.66 1 Hasan AMIR [facility] Comment on above: Result Comment: ^~:!Percentile Cele [facility] 05-11-2023 08:01-0400 Height/Length Z-Score 0.30 1 Hasan AMIR [facility] Comment on above: Result Comment: ^~:!Debbie [facility] 05-11-2023 07:58-0400 bodymassindex 2.34 kg/m2 Hasan AMIR [facility] Comment on above: Result Comment: ^~:!Debbie [facility] 05-11-2023 07:58-0400 Height/Length Percentile 61.66 1 Hasan AMIR [facility] Comment on above: Result Comment: ^~:!Percentile [facility] 05-11-2023 07:58-0400 Height/Length Z-Score 0.30 1 Hasan AMIR [facility] Comment on above: Result Comment: ^~:!Debbie [facility] 03-16-2023 17:47-0400 Diastolic blood pressure 80 mm[Hg] Radha Whipple [facility] 03-16-2023 17:47-0400 Heart rate 84 /min Radha Whipple [facility] 03-16-2023 17:47-0400 Respiratory rate 17 /min Radha Whipple [facility] 03-16-2023 17:47-0400 SaO2% (BldA) [Mass fraction] 99 % Radha Whipple [facility] 03-16-2023 17:47-0400 Systolic blood pressure 133 mm[Hg] Radha Whipple [facility] 03-16-2023 16:52-0400 Body temperature 98.42 [degF] Radha Whipple [facility] 03-16-2023 16:52-0400 bodymassindex 2.36 Radha Whipple [facility] Comment on above: Result Comment: ^~:!ZScore [facility] 03-16-2023 16:52-0400 Diastolic blood pressure 92 mm[Hg] Radha Chaparroe [facility] 03-16-2023 16:52-0400 Heart rate 104 /min Radha Whipple [facility] 03-16-2023 16:52-0400 Height/Length Percentile 61.80 Radha Whipple [facility] Comment on above: Result Comment: ^~:![facility] 03-16-2023 16:52-0400 Height/Length Z-Score 0.30 Radha Whipple [facility] Comment on above: [facility] Comment: [facility] 03-16-2023 16:52-0400 Respiratory rate 17 /min Radha Whipple [facility] 03-16-2023 16:52-0400 SaO2% (BldA) [Mass fraction] 98 % Radha Whipple [facility] 03-16-2023 16:52-0400 Systolic blood pressure 118 mm[Hg] Radha Whipple [facility] 03-16-2023 16:52-0400 weight 2.52 Radha Chaparroe [facility] Comment on above: Result Comment: [facility] 03-16-2023 16:52-0400 Weight Percentile 99.41 % Radha Whipple [facility] Comment on above: Result Comment: ^~:!Percentile Source [facility] 03-13-2023 07:30-0400 Body temperature 98.1 [degF] MD Claudia Ellington Work Phone: [facility] 03-13-2023 07:30-0400 Diastolic blood pressure 65 mm[Hg] MD Claudia Ellington Work Phone: [facility] 03-13-2023 07:30-0400 Heart rate 60 /min MD Claudia Ellington Work Phone: [facility] 03-13-2023 07:30-0400 Respiratory rate 16 /min MD Claudia Ellington Work Phone: [facility] 03-13-2023 07:30-0400 SaO2% (BldA) [Mass fraction] 95 % MD Claudia Ellington Work Phone: [facility] 03-13-2023 07:30-0400 Systolic blood pressure 97 mm[Hg] MD Claudia Ellington Work Phone: [facility] 03-11-2023 15:15-0400 Body height 165.1 cm MD Claudia Ellington Work Phone: [facility] 03-10-2023 15:55-0400 Body weight 113.39 kg MD Claudia Ellington Work Phone: [facility] 03-10-2023 13:00-0400 Hourly Rounding Orlando Paster [facility] 03-10-2023 13:00-0400 Promise to Return Orlando Paster [facility] 03-10-2023 12:28-0400 Hourly Rounding Orlando Paster [facility] 03-10-2023 12:28-0400 Promise to Return Orlando Paster [facility] 03-10-2023 11:00-0400 Blood Pressure Location Orlando Paster [facility] 03-10-2023 11:00-0400 Body temperature 98.06 [degF] Orlando Paster [facility] 03-10-2023 11:00-0400 Diastolic blood pressure 73 mm[Hg] Orlando Paster [facility] 03-10-2023 11:00-0400 Heart rate 91 /min Orlando Paster [facility] 03-10-2023 11:00-0400 Hourly Rounding [place] Paster [facility] 03-10-2023 11:00-0400 Mean blood pressure 85 mm[Hg] [facility] Paster [facility] 03-10-2023 11:00-0400 Promise to Return [place] Paster [facility] 03-10-2023 11:00-0400 Respiratory rate 16 /min [facility] Paster [facility] 03-10-2023 11:00-0400 SaO2% (BldA) [Mass fraction] 97 % [facility] Paster [facility] 03-10-2023 11:00-0400 Systolic blood pressure 109 mm[Hg] [facility] Paster [facility] 03-10-2023 07:00-0400 Body temperature 97.88 [degF] [facility] Paster [facility] 03-10-2023 07:00-0400 Diastolic blood pressure 72 mm[Hg] [facility] Paster [facility] 03-10-2023 07:00-0400 Heart rate 87 /min Orlando Paster [facility] 03-10-2023 07:00-0400 Mean blood pressure 86 mm[Hg] Orlando Paster [facility] 03-10-2023 07:00-0400 Respiratory rate 18 /min Orlando Paster [facility] 03-10-2023 07:00-0400 SaO2% (BldA) [Mass fraction] 96 % [facility] Paster [facility] 03-10-2023 07:00-0400 Systolic blood pressure 115 mm[Hg] Orlando Paster [facility] 03-10-2023 05:04-0400 weight 2.52 [place] Paster [facility] Comment on above: Result Comment: ^~:!ZScore Source -[facility] 03-10-2023 05:04-0400 Weight Percentile 99.41 % Orlando Paster [facility] Comment on above: Result Comment: ^~:!Percentile Source -[facility] 03-10-2023 00:14-0400 Blood Pressure Location [place] Paster [facility] 03-10-2023 00:14-0400 Body temperature 98.06 [degF] Orlando Paster [facility] 03-10-2023 00:14-0400 Diastolic blood pressure 74 mm[Hg] Orlando Paster [facility] 03-10-2023 00:14-0400 Heart rate 79 /min Orlando Paster [facility] 03-10-2023 00:14-0400 Mean blood pressure 89 mm[Hg] Orlando Paster [facility] 03-10-2023 00:14-0400 Respiratory rate 16 /min Orlando Paster [facility] 03-10-2023 00:14-0400 Systolic blood pressure 118 mm[Hg] Orlando Paster [facility] 03-09-2023 19:28-0400 SaO2% (BldA) [Mass fraction] 95 % Orlando Paster [facility] 03-09-2023 19:28-0400 Mean blood pressure 91 mm[Hg] Orlando Paster [facility] 03-09-2023 19:27-0400 Body temperature 98.06 [degF] Orlando Paster [facility] 03-09-2023 12:39-0400 weight 2.44 Orlando Paster [facility] Comment on above: Result Comment: ^~:!ZScore [facility] 03-09-2023 12:39-0400 Weight Percentile 99.26 % Orlando Paster [facility] Comment on above: Result Comment: ^~:!Percentile Source -[facility] 03-08-2023 10:57-0400 Body temperature 97.88 [degF] Orlando Paster [facility] 03-08-2023 10:56-0400 Mean blood pressure 89 mm[Hg] Orlando Paster [facility] 03-08-2023 07:28-0400 Mean blood pressure 97 mm[Hg] Orlando Paster [facility] 03-08-2023 07:28-0400 Heart rate 81 /min Orlando Paster [facility] 03-08-2023 07:28-0400 Respiratory rate 21 /min Orlando Paster [facility] 03-08-2023 06:49-0400 weight 2.80 Orlando Paster [facility] Comment on above: Result Comment: ^~:!ZScore [facility] 03-08-2023 06:49-0400 Weight Percentile 99.74 % Orlando Paster [facility] Comment on above: Result Comment: ^~:!Percentile Source -[facility] [place] 03-07-2023 23:48-0400 Respiratory rate 18 /min Orlando Paster [facility] 03-07-2023 20:57-0400 Respiratory rate 18 /min Orlando Paster [facility] 03-07-2023 20:02-0400 bodymassindex 2.58 Orlando Paster [facility] Comment on above: Result Comment: ^~:!ZScore [facility] 03-07-2023 20:02-0400 Height/Length Percentile 61.80 Orlando Paster [facility] Comment on above: Result Comment: ^~:!Percentile Source -[facility] [place] 03-07-2023 20:02-0400 Height/Length Z-Score 0.30 Orlando Paster [facility] Comment on above: Result Comment: ^~:!ZScore [facility] 03-07-2023 18:52-0400 bodymassindex 2.58 Orlando Paster [facility] Comment on above: Result Comment: ^~:!ZScore [facility] 03-07-2023 18:52-0400 Heart rate 91 /min Orlando Paster [facility] 03-07-2023 18:52-0400 Height/Length Percentile 61.80 Orlando Paster [facility] Comment on above: Result Comment: ^~:!Percentile Source [facility] 03-07-2023 18:52-0400 Height/Length Z-Score 0.30 Orlando Paster [facility] Comment on above: Result Comment: ^~:!ZScore [facility] 03-07-2023 14:11-0400 bodymassindex 2.33 Orlando Paster [facility] Comment on above: Result Comment: ^~:!ZScore [facility] 03-07-2023 14:11-0400 Heart rate 105 /min Orlando Wade [facility] 03-07-2023 14:11-0400 Height/Length Percentile 61.21 Orlando Wade [facility] Comment on above: Result Comment: ^~:!Percentile Source -[facility] [place] 03-07-2023 14:11-0400 Height/Length Z-Score 0.28 Orlando Wade [facility] Comment on above: Result Comment: ^~:!ZScore [facility] 11-13-2022 13:56-0400 Body temperature 98.06 [degF] Wilfredo Villareal [facility] 11-13-2022 13:56-0400 bodymassindex 2.31 Wilfredo Villareal [facility] Comment on above: Result Comment: ^~:!ZScore [facility] 11-13-2022 13:56-0400 Diastolic blood pressure 85 mm[Hg] Wilrfedo Villareal [facility] 11-13-2022 13:56-0400 Heart rate 94 /min Wilfredo Villareal [facility] 11-13-2022 13:56-0400 Height/Length Percentile 61.53 Wilfredo Villareal [facility] Comment on above: Result Comment: ^~:!Percentile Source -[facility] [place] 11-13-2022 13:56-0400 Height/Length Z-Score 0.29 Wilfredo Villareal [facility] Comment on above: Result Comment: ^~:!ZScore Source [facility] 11-13-2022 13:56-0400 Respiratory rate 16 /min Wilfredo Villareal [facility] 11-13-2022 13:56-0400 SaO2% (BldA) [Mass fraction] 97 % Wilfredo Villareal [facility] 11-13-2022 13:56-0400 Systolic blood pressure 135 mm[Hg] Wilfredo Villareal [facility] 11-13-2022 13:56-0400 weight 2.42 Wilfredo Villareal [facility] Comment on above: Result Comment: ^~:!ZScore Source -[facility] 11-13-2022 13:56-0400 Weight Percentile 99.23 % Wilfredo Villareal [facility] Comment on above: Result Comment: ^~:!Percentile Source -[facility] 10-11-2022 01:10-0500 Diastolic blood pressure 74 mm[Hg] Kaylinn Dokken [facility] 10-11-2022 01:10-0500 Heart rate 85 /min Kaylinn Dokken [facility] 10-11-2022 01:10-0500 Respiratory rate 12 /min Kaylinn Dokken [facility] 10-11-2022 01:10-0500 SaO2% (BldA) [Mass fraction] 98 % Kaylinn Dokken [facility] 10-11-2022 01:10-0500 Systolic blood pressure 118 mm[Hg] Kaylinn Dokken [facility] 10-11-2022 00:04-0500 Diastolic blood pressure 74 mm[Hg] Kaylinn Dokken [facility] 10-11-2022 00:04-0500 Heart rate 74 /min Kaylinn Dokken [facility] 10-11-2022 00:04-0500 Respiratory rate 12 /min Kaylinn Dokken [facility] 10-11-2022 00:04-0500 SaO2% (BldA) [Mass fraction] 97 % Alexinn Dokken [facility] 10-11-2022 00:04-0500 Systolic blood pressure 101 mm[Hg] Kaylinn Dokken [facility] 10-10-2022 23:00-0500 Diastolic blood pressure 85 mm[Hg] Rockyylinn Dokken [facility] 10-10-2022 23:00-0500 Heart rate 87 /min Rockyylinn Dokken [facility] 10-10-2022 23:00-0500 Mean blood pressure 92 mm[Hg] Rockyylinn Dokken [facility] 10-10-2022 23:00-0500 Respiratory rate 20 /min Alexinn Dokken [facility] 10-10-2022 23:00-0500 Systolic blood pressure 105 mm[Hg] Rockyylinn Dokken [facility] 10-10-2022 21:54-0500 Body temperature 98.42 [degF] Alexinn Dokken [facility] 10-10-2022 21:54-0500 bodymassindex 2.32 Rockyylinn Dokken [facility] Comment on above: Result Comment: ^~:!ZScore Source -[facility] 10-10-2022 21:54-0500 Height/Length Percentile 62.20 Rockyylinn Dokken [facility] Comment on above: Result Comment: ^~:!Percentile Source -[facility] 10-10-2022 21:54-0500 Height/Length Z-Score 0.31 Kaylinn Dokken [facility] Comment on above: [facility] 21:54-0500 Respiratory rate 15 /min Ko Draepr [facility] 10-10-2022 21:54-0500 weight 2.43 Ko Draper [facility] Comment on above: Result Comment[facility]-10-[facility]22 21:54-0500 Weight Percentile 99.24 % Ko Draper [facility] Comment on above: Result Comment: ^~:!Percentile [facility] 10-06-2022 14:00-0500 Diastolic blood pressure 69 mm[Hg] Han Miky [facility] 10-06-2022 14:00-0500 Heart rate 79 /min Han Miky [facility] 10-06-2022 14:00-0500 Mean blood pressure 87 mm[Hg] Han Miky [facility] 10-06-2022 14:00-0500 Respiratory rate 18 /min Han Miky [facility] 10-06-2022 14:00-0500 SaO2% (BldA) [Mass fraction] 95 % Han Miky [facility] 10-06-2022 14:00-0500 Systolic blood pressure 122 mm[Hg] Han Miky [facility] 10-06-2022 00:30-0500 Diastolic blood pressure 60 mm[Hg] Han Miky [facility] 10-06-2022 00:30-0500 Heart rate 88 /min Han Miky [facility] 10-06-2022 00:30-0500 Respiratory rate 18 /min Han Miky [facility] 10-06-2022 00:30-0500 SaO2% (BldA) [Mass fraction] 96 % Han Miky [facility] 10-06-2022 00:30-0500 Systolic blood pressure 102 mm[Hg] Han Miky [facility] 10-05-2022 23:51-0500 Body temperature 97.7 [degF] Han Miky [facility] 10-05-2022 23:51-0500 bodymassindex 2.34 Han Miky [facility] Comment on above: Result Comment: ^~:!ZScore [facility] 10-05-2022 23:51-0500 Diastolic blood pressure 78 mm[Hg] Han Miky [facility] 10-05-2022 23:51-0500 Heart rate 89 /min Han Miky [facility] 10-05-2022 23:51-0500 Height/Length Percentile 61.61 Han Miky [facility] Comment on above: Result Comment: ^~:!Percentile Source -[facility] 10-05-2022 23:51-0500 Height/Length Z-Score 0.30 Han Miky [facility] Comment on above: Result Comment: ^~:!ZScore [facility] 10-05-2022 23:51-0500 Respiratory rate 18 /min Han Miky [facility] 10-05-2022 23:51-0500 SaO2% (BldA) [Mass fraction] 95 % Han Miky [facility] 10-05-2022 23:51-0500 Systolic blood pressure 171 mm[Hg] Han Miky [facility] 10-05-2022 23:51-0500 weight 2.45 Han Miky [facility] Comment on above: Result Comment: ^~:!ZScore Source -[facility] 10-05-2022 23:51-0500 Weight Percentile 99.29 % Han Miky [facility] Comment on above: Result Comment: ^~:!Percentile Source -[facility] 07-08-2022 22:00-0500 Body temperature 98.78 [degF] Kaylinn Dokken [facility] 07-08-2022 22:00-0500 Diastolic blood pressure 74 mm[Hg] Kaylinn Dokken [facility] 07-08-2022 22:00-0500 Heart rate 77 /min Kaylinn Dokken [facility] 07-08-2022 22:00-0500 Mean blood pressure 86 mm[Hg] Kaylinn Dokken [facility] 07-08-2022 22:00-0500 Respiratory rate 12 /min Kaylinn Dokken [facility] 07-08-2022 22:00-0500 SaO2% (BldA) [Mass fraction] 97 % Kaylinn Dokken [facility] 07-08-2022 22:00-0500 Systolic blood pressure 110 mm[Hg] Kaylinn Dokken [facility] 07-08-2022 21:44-0500 Body temperature 99.32 [degF] Kaylinn Dokken [facility] 07-08-2022 21:44-0500 Diastolic blood pressure 73 mm[Hg] Kaylinn Dokken [facility] 07-08-2022 21:44-0500 Heart rate 90 /min Kaylinn Dokken [facility] 07-08-2022 21:44-0500 Mean blood pressure 88 mm[Hg] Kaylinn Dokken [facility] 07-08-2022 21:44-0500 Respiratory rate 16 /min Kaylinn Dokken [facility] 07-08-2022 21:44-0500 SaO2% (BldA) [Mass fraction] 96 % Kaylinn Dokken [facility] 07-08-2022 21:44-0500 Systolic blood pressure 119 mm[Hg] Kaylinn Dokken [facility] 07-08-2022 21:00-0500 Diastolic blood pressure 67 mm[Hg] Kaylinn Dokken [facility] 07-08-2022 21:00-0500 Heart rate 80 /min Kaylinn Dokken [facility] 07-08-2022 21:00-0500 Mean blood pressure 83 mm[Hg] Kaylinn Dokken [facility] 07-08-2022 21:00-0500 SaO2% (BldA) [Mass fraction] 98 % Kaylinn Dokken [facility] 07-08-2022 21:00-0500 Systolic blood pressure 116 mm[Hg] Kaylinn Dokken [facility] 07-08-2022 18:52-0500 Body temperature 100.04 [degF] Alexinn Docmen [facility] 07-08-2022 18:52-0500 bodymassindex 2.38 Rockyylinn Dokken [facility] Comment on above: Result Comment: ^~:!ZScore [facility] 07-08-2022 18:52-0500 Heart rate 86 /min Ginan Dokken [facility] 07-08-2022 18:52-0500 Height/Length Percentile 61.90 % Ginan Docmen [facility] Comment on above: Result Comment: ^~:!Percentile Source [facility] 07-08-2022 18:52-0500 Height/Length Z-Score 0.30 Ginan Reaganen [facility] Comment on above: Result Comment: ^~:!ZScore [facility] 07-08-2022 18:52-0500 Respiratory rate 18 /min Ginan Reaganen [facility] 07-08-2022 18:52-0500 weight 2.47 Ginan kken [facility] Comment on above: Result Comment: ^~:!ZScore [facility] 07-08-2022 18:52-0500 Weight Percentile 99.33 % Ginan Reaganen [facility] Comment on above: Result Comment: ^~:!Percentile Source [facility] 07-04-2022 18:09-0500 Body temperature 98.06 [degF] Radha Whipple [facility] 07-04-2022 18:09-0500 bodymassindex 2.21 Radha Whipple [facility] Comment on above: Result Comment: ^~:!ZScore [facility] 07-04-2022 18:09-0500 Diastolic blood pressure 83 mm[Hg] Radha Whipple [facility] 07-04-2022 18:09-0500 Heart rate 99 /min Radha Whipple [facility] 07-04-2022 18:09-0500 Height/Length Percentile 61.90 % Radha Whipple [facility] Comment on above: Result Comment: ^~:!Percentile Source -[facility] 07-04-2022 18:09-0500 Height/Length Z-Score 0.30 Radha Whipple [facility] Comment on above: [facility] Comment[facility] 18:09-0500 Respiratory rate 18 /min Radha Whipple [facility] 07-04-2022 18:09-0500 SaO2% (BldA) [Mass fraction] 97 % Radha Whipple [facility] 07-04-2022 18:09-0500 Systolic blood pressure 121 mm[Hg] Radha Whipple [facility] 07-04-2022 18:09-0500 weight 2.29 Radha Whipple [facility] Comment on above: Result Comment: ^~:!ZSPLTech [facility] 07-04-2022 18:09-0500 Weight Percentile 98.88 % Radha Whipple [facility] Comment on above: Result Comment: ^~:!Percentile Source -[facility] 07-02-2022 16:02-0500 Diastolic blood pressure 64 mm[Hg] Wilfredokeysha Villareal [facility] 07-02-2022 16:02-0500 Heart rate 95 /min Wilfredo Mono [facility] 07-02-2022 16:02-0500 Respiratory rate 18 /min Wilfredo Mono [facility] 07-02-2022 16:02-0500 SaO2% (BldA) [Mass fraction] 95 % Wilfredo Mono [facility] 07-02-2022 16:02-0500 Systolic blood pressure 108 mm[Hg] Wilfredo Mono [facility] 07-02-2022 14:24-0500 Diastolic blood pressure 78 mm[Hg] Wilfredo Mono [facility] 07-02-2022 14:24-0500 Heart rate 95 /min Wilfredo Mono [facility] 07-02-2022 14:24-0500 Respiratory rate 18 /min Wilfredo Mono [facility] 07-02-2022 14:24-0500 SaO2% (BldA) [Mass fraction] 96 % Wilfredo Mono [facility] 07-02-2022 14:24-0500 Systolic blood pressure 137 mm[Hg] Wilfredo Mono [facility] 07-02-2022 13:28-0500 Body temperature 98.06 [degF] Wilfredo Villareal [facility] 07-02-2022 13:28-0500 bodymassindex 2.21 Wilfredo Mono [facility] Comment on above: Result Comment: [facility] 13:28-0500 Diastolic blood pressure 74 mm[Hg] Wilfredo Villareal [facility] 07-02-2022 13:28-0500 Heart rate 108 /min Wilfredo Mono [facility] 07-02-2022 13:28-0500 Height/Length Percentile 61.90 % Wilfredo Villareal [facility] Comment on above: Result Comment: ^~:!Percentile Source -[facility] [place] 07-02-2022 13:28-0500 Height/Length Z-Score 0.30 Wilfredo Villareal [facility] Comment on above: Result Comment[facility] 13:28-0500 Respiratory rate 18 /min Wilfredo Villareal [facility] 07-02-2022 13:28-0500 SaO2% (BldA) [Mass fraction] 98 % Wilfredo Villareal [facility] 07-02-2022 13:28-0500 Systolic blood pressure 130 mm[Hg] Wilfredo Villareal [facility] 07-02-2022 13:28-0500 weight 2.29 Wilfredo Villareal [facility] Comment on above: Result Comment: [facility] 13:28-0500 Weight Percentile 98.88 % Wilfredo Villareal [facility] Comment on above: Result Comment: ^~:!Percentile Source -[facility] [place] 12-05-2021 22:39-0400 Blood Pressure Location Wilfredo Villareal [facility] 12-05-2021 22:39-0400 Body temperature 98.42 [degF] Wilfredo Mono [facility] 12-05-2021 22:39-0400 Diastolic blood pressure 98 mm[Hg] Wilfredo Mono [facility] 12-05-2021 22:39-0400 Heart rate 114 /min Wilfredokeysha Villareal [facility] 12-05-2021 22:39-0400 Mean blood pressure 110 mm[Hg] Wilfredo Villareal [facility] 12-05-2021 22:39-0400 Respiratory rate 16 /min Wilfredo Mono [facility] 12-05-2021 22:39-0400 SaO2% (BldA) [Mass fraction] 95 % Wilfredo Mnoo [facility] 12-05-2021 22:39-0400 Systolic blood pressure 133 mm[Hg] Wilfredo Mono [facility] 12-05-2021 19:45-0400 Blood Pressure Location Wilfredo Villareal [facility] 12-05-2021 19:45-0400 Body temperature 99.68 [degF] Wilfredo Villareal [facility] 12-05-2021 19:45-0400 Diastolic blood pressure 91 mm[Hg] Wilfredo Mono [facility] 12-05-2021 19:45-0400 Heart rate 107 /min Wilfredo Mono [facility] 12-05-2021 19:45-0400 Mean blood pressure 101 mm[Hg] Wilfredo Villareal [facility] 12-05-2021 19:45-0400 Respiratory rate 16 /min Wilfredo Mono [facility] 12-05-2021 19:45-0400 SaO2% (BldA) [Mass fraction] 99 % Wilfredo Villareal [facility] 12-05-2021 19:45-0400 Systolic blood pressure 122 mm[Hg] Wilfredo Mono [facility] 12-05-2021 18:51-0400 Blood Pressure Location Wilfredo Mono [facility] 12-05-2021 18:51-0400 Diastolic blood pressure 64 mm[Hg] Wilfredo Villareal [facility] 12-05-2021 18:51-0400 Heart rate 74 /min Wilfredo Mono [facility] 12-05-2021 18:51-0400 Mean blood pressure 88 mm[Hg] Wilfredo Villareal [facility] 12-05-2021 18:51-0400 Respiratory rate 16 /min Wilfredo Mono [facility] 12-05-2021 18:51-0400 SaO2% (BldA) [Mass fraction] 99 % Wilrfedokeysha Villareal [facility] 12-05-2021 18:51-0400 Systolic blood pressure 137 mm[Hg] Wilfredo Villareal [facility] 12-05-2021 07:00-0400 Body temperature 98.6 [degF] Wilfredo Mono [facility] Encounters Encounter Date Encounter Type Care Provider Facility Start: 01-22-2024 End: 01-22-2024 ambulatory Zenon Hernandez Facility:[facility] Start: 01-22-2024 End: 01-22-2024 Patient encounter procedure Zenon Hernandez [facility] Start: 01-14-2024 ambulatory Claudia Ellington Facility: [facility] Start: 01-13-2024 End: 01-13-2024 Emergency department patient visit Daniepaul Lalate [facility] Start: 01-12-2024 End: 01-12-2024 Emergency department patient visit [facility] Facility:[facility] Start: 06-30-2023 ambulatory VALORIE Villegas [facility] Start: 06-30-2023 End: 06-30-2023 Office outpatient new 30 minutes Valorie Hansen MD Work Phone: [facility] Comment on above: Macromastia (Primary Dx); Thoracic spine pain Start: 05-13-2023 ambulatory [place] Start: 05-11-2023 End: 05-13-2023 Evaluation and management of inpatient Akosua LR [facility] Start: 04-27-2023 Evaluation and management of inpatient Claudia Ellington Facility:[facility] Start: 03-16-2023 End: 03-16-2023 Emergency department patient visit Radha Whipple [facility] Start: 03-10-2023 End: 03-13-2023 Evaluation and management of inpatient MD Claudia Ellington Work Phone: [address] Work Phone: Start: 03-10-2023 End: 03-10-2023 ambulatory CLAUDIA M Jono [facility] Start: 03-08-2023 End: 03-10-2023 Evaluation and management of inpatient Lawrence Reveles Facility:[facility] Start: 03-07-2023 End: 03-10-2023 Evaluation and management of inpatient Orlando Wade [facility] Start: 02-27-2023 End: 02-27-2023 ambulatory MISTY MACKEY Facility:[facility] Start: 11-14-2022 End: 11-14-2022 ambulatory CLAUDIA M Jono [facility] Start: 11-13-2022 End: 11-13-2022 Emergency department patient visit Wilfredo Villareal [facility] Start: 11-05-2022 End: 11-06-[address] CLAUDIA ELLINGTON . Facility:[facility] Start: 11-05-2022 End: 11-05-2022 ambulatory TEENA TRAN . Facility:[facility] Start: 10-15-2022 End: 10-15-2022 ambulatory JUAN MIGUEL HUYNH [facility] Start: 10-13-2022 End: 10-13-2022 ambulatory CLAUDIA ELLINGTON [facility] Start: 10-10-2022 End: 10-11-2022 Emergency department patient visit Ko Draper [facility] Start: 10-06-2022 End: 10-06-2022 ambulatory CLAUDIA ELLINGTON [facility] Start: 10-05-2022 End: 10-06-2022 Emergency department patient visit Han Bolaños [facility] Start: 10-03-[address] CLAUDIA ELLINGTON . Facili ty:[facility] Start: 09-25-2022 End: 09-26-[address] CLAUDIA ELLINGTON . Facility:[facility] Start: 09-24-2022 End: 09-25-[address] CLAUDIA ELLINGTON . Facility:[facility] Start: 09-11-2022 End: 09-11-[address] CLAUDIA ELLINGTON . Facility:[facility] Start: 08-05-2022 End: 08-05-[address] CLAUDIA ELLINGTON . Facility:[facility] Start: 07-31-2022 End: 07-31-2022 ambulatory MD Claudia Ellington Work Phone: [facility] Work Phone: Start: 07-31-2022 End: 07-31-2022 Patient encounter procedure MD Claudia Ellington Work Phone: [facility] [place] Work Phone: Start: 07-24-2022 End: 07-24-[address] CLAUDIA ELLINGTON . Facility:[facility] Start: 07-23-2022 End: 07-23-[address] CLAUDIA ELLINGTON . Facility:[facility] Start: 07-08-2022 End: 07-08-2022 Emergency department patient visit Ko Draper [facility] Start: 07-08-2022 End: 07-08-[address] CLAUDIA ELLINGTON . Facility:[facility] Start: 07-04-2022 End: 07-04-2022 Emergency department patient visit Radha Whipple [facility] Start: 07-02-2022 End: 07-02-2022 Emergency department patient visit Wilfredo Villareal [facility] Start: 06-25-2022 End: 06-25-[address] CLAUDIA ELLINGTON . Facility:[facility] Start: 06-20-2022 End: 06-20-[address] CLAUDIA ELLINGTON . Facility:[facility] Start: 05-26-2022 End: 05-26-[address] CLAUDIA ELLINGTON . Facility:[facility] Start: 05-14-2022 End: 05-14-2022 ambulatory CLAUDIA ELLINGTON [facility] Start: 04-26-2022 End: 04-27-[address] CLAUDIA ELLINGTON . Facility:[facility] Start: 04-04-2022 End: 04-04-2022 Patient encounter procedure MISTY MACKEY [facility] Start: 03-20-2022 End: 03-20-[address] CLAUDIA ELLINGTON . Facility:[facility] Start: 03-05-2022 End: 03-05-[address] CLAUDIA ELLINGTON . Facility:[facility] Start: 01-17-2022 End: 01-17-[address] CLAUDIA ELLINGTON . Facility:[facility] Start: 12-04-2021 End: 12-05-2021 Emergency department patient visit Wilfredo Villareal [facility] Start: 09-02-2018 Patient encounter procedure Martina Bedolla Facility:[id number] Start: 03-29-2018 Patient encounter procedure Martina Bedolla Facility:[id number] Start: 03-18-2018 Patient encounter procedure Liss Salvador Facility:[id number] Start: 01-25-2018 Patient encounter procedure Martina Bedolla Facility:[id number] Procedures Date Procedure Procedure Detail Performing Clinician Myringotomy and antwan strickland of middle ear Wilfredo Villareal Plan of Treatment Date Care Activity Detail Author Start: 01-29-2028 Tetanus vaccination TETANUS [facility] Start: 04-03-2023 COVID-19 VACCINE () COVID-19 VACCINE () [facility] Start: 03-13-2023 [facility] Start: 03-10-2023 Hospital admission [facility] Start: 03-10-2023 [facility] Start: 2020 Screening for Chlamy patricia trachomatis CHLAMYDIA SCREEN [facility] Start: 12-31-2019 HIV screening HIV SCREENING DISCUSSI ON [facility] Start: 2004 Hepatitis C screening HEPATITI S C VIRUS SCREENING [facility] Start: 2004 Screening for Chlamy patricia trachomatis GONORRHEA SCREEN [facility] Patient Education Depression, Ad ult (DC) [facility] [place] Instructions [facility] Work Phone: Patient referral [facility] Work Phone: Immunizations Immunization Date Immunization Notes Care Provider Hope ackerman 05-06-2023 influenza virus vaccine, unspecified formulation Zenon Hernandez [facility] 10-03-2022 SARS-CoV-2 (COVID-19 ) [id number] Orlando Wade [facility] 07-31-2022 meningococcal B vaccine, fully recombinant Orlando aWde [facility] 07-31-2022 SARS-CoV-2 (COVID-19 ) mRNA-1273 vaccine Orlando Paster [facility] 07-01-2022 influenza virus vaccine, unspecified formulation Orlando Paster [facility] 07-01-2022 meningococcal ACWY vaccine, unspecified formulation Orlando Paster [facility] 07-01-2022 meningococcal B vaccine, fully recombinant Orlando Paster [facility] 07-01-2022 SARS-CoV-2 (COVID-19 ) mRNA-1273 vaccine Orlando Paster [facility] 08-09-2019 HPV, unspecified formulation Orlando Paster [facility] 08-09-2019 influenza virus vaccine, unspecified formulation Orlando Paster [facility] 01-28-2018 meningococcal ACWY vaccine, unspecified formulation Orlando Paster [facility] 01-28-2018 tetanus toxoid, redu elisabeth diphtheria toxoid, and acellular pertussis vaccine, adsorbed Orlando Paster [facility] 01-26-2018 HPV, unspecified formulation Orlando Paster [facility] 07-21-2011 hepatitis A vaccine, unspecified formulation Orlando Paster [facility] 01-16-2011 Diphtheria, tetanus toxoids and acellular pertussis vaccine, and poliovirus vaccine, inactivated Orlando Paster [facility] 01-16-2011 hepatitis A vaccine, unspecified formulation Orlando Paster [facility] 01-16-2011 measles, mumps, rubella, and varicella virus vaccine Orlando Paster [facility] 04-20-2006 diphtheria, tetanus toxoids and acellular pertussis vaccine Orlando Paster [facility] 04-20-2006 varicella virus vaccine Will alexis Paster [facility] 01-28-2006 Hib, unspecified formulation Orlando Paster [facility] 01-28-2006 measles, mumps and rubella virus vaccine Orlando Paster [facility] 07-23-2005 DTaP-hepatitis B and poliovirus vaccine Orlando Paster [facility] 07-23-2005 haemophilus influenz ae type b vaccine, PRP-T conjugate Orlando Paster [facility] 05-28-2005 DTaP-hepatitis B and poliovirus vaccine Orlando Paster [facility] 05-28-2005 haemophilus influenz ae type b vaccine, PRP-T conjugate Orladno Paster [facility] 03-27-2005 DTaP-hepatitis B and poliovirus vaccine Orlando Paster [facility] 03-27-2005 haemophilus influenz ae type b vaccine, PRP-T conjugate Orlando Paster [facility] 2004 hepatitis B vaccine, pediatric or pediatric/adolescent dosage Orlando Paster [facility] Payers Date Payer Category Payer Unknown [facility] [id number] 2023-Present [address] [place] [address] [id number] 2022 Self-pay [id number] 2004 Unknown [id number] 2.16.840.1.125961.3.579.2.479 2004 Unknown [id number] 2.16.840.1.164474.3.579.2.983 2004 Unknown [id number] 2.16.840.1.305504.3.579.2.727 2004 Unknown [id number] 2.16.840.1.191815.3.579.2.727 2004 Unknown [id number] 2.16.840.1.414572.3.579.2.727 2004 Unknown [id number] 2.16.840.1.843305.3.579.2.727 2004 Unknown [id number] 2.16.840.1.227696.3.579.2.727 2004 Unknown [id number] 2.16.840.1.365907.3.579.2.727 2004 Unknown [id number] 2.16.840.1.346676.3.579.2.727 2004 Unknown [id number] 2.16.840.1.584879.3.579.2.727 2004 Unknown [id number] 2.16.840.1.777484.3.579.2.727 1979 Unknown [id number] 2.16.840.1.421379.3.579.2.356 1979 Unknown [id number] 2.16.840.1.151735.3.579.2.356 1979 Unknown [id number] 2.16.840.1.297619.3.579.2.356 1979 Unknown [id number] 2.16.840.1.216182.3.579.2.356 1979 Unknown [id number] 2.16.840.1.320118.3.579.2.593 1979 Unknown [id number] 2.16.840.1.323083.3.579.2.593 1979 Unknown [id number] 2.16.840.1.388899.3.579.2.593 1979 Unknown [id number] 2.16.840.1.762269.3.579.2.593 1979 Unknown [id number] 2.16.840.1.136626.3.579.2.593 1979 Unknown [id number] 2.16.840.1.125254.3.579.2.593 1979 Unknown [id number] 2.16.840.1.959174.3.579.2.59 1979 Unknown [id number] 2.16.840.1.034465.3.579.2.59 1979 Unknown [id number] 2.16.840.1.235061.3.579.2.593 1979 Unknown [id number] 2.16.840.1.772814.3.579.2.593 1979 Unknown [id number] 2.16.840.1.109090.3.579.2.593 1979 Unknown [id number] 2.16.840.1.309134.3.579.2.593 1979 Unknown [id number] 2.16.840.1.733081.3.579.2.593 1979 Unknown [id number] 2.16.840.1.874538.3.579.2.593 1979 Unknown [id number] 2.16.840.1.479401.3.579.2.593 1979 Unknown [id number] 2.16.840.1.723392.3.579.2.593 1979 Unknown [id number] 2.16.840.1.281237.3.579.2.593 1979 Unknown [id number] 2.16.840.1.614154.3.579.2.593 1979 Unknown [id number] 2.16.840.1.708087.3.579.2.479 1979 Unknown [id number] 2.16.840.1.719923.3.579.2.479 1979 Unknown [id number] 2.16.840.1.807618.3.579.2.479 1979 Unknown [id number] 2.16.840.1.300175.3.579.2.479 1979 Unknown [id number] 2.16.840.1.911811.3.579.2.479 1959 Unknown [id number] 1959 Unknown [id number] Unknown [id number] 2.16.840.1.462153.3.579.2.531 Unknown [id number] 2.16.840.1.822337.3.579.2.531 Unknown [id number] 2.16.840.1.439096.3.579.2.531 Social History Date Type Detail Facility Start: 12-04-2021 End: 01-22-2024 Tobacco smoking status Never smoked tobacco (finding) [facility] Start: 06-30-2023 Sex Assigned At Female F [facility] Tobacco [facility] Comment on above: denies Tobacco smoking status No Smokin g Status Entered [facility] Start: 2004 Sex Assigned At Female F [facility] Start: 06-30-2023 Tobacco smoking stat us NHIS Occasional tobacco smoker [facility] Start: 06-30-2023 History of Social function [facility] Start: 06-30-2023 Tobacco Comment vape [facility] Start: 2004 Sex Assigned At Not on file [facility] Goals Date Patient Goal Desired Activity /State Functional Status Date Assessment Result Facility 01-22-2024 Functional Status N/A [facility] 01-13-2024 Functional Status N/A [facility] 01-12-2024 Functional Status N/A [facility] 05-11-2023 Functional Status N/A [facility] 03-16-2023 Functional Status N/A [facility] 03-13-2023 Functional status Patient at Baseline [facility] Work Phone: 03-07-2023 Functional Status N/A [...] function Cognitive Sta tus Patient at Baseline [facility] Work Phone: Clinical Notes 07-02-2022 to 01-22-2024 RadiologyGregadam Hansen MD - 06/30/2023 2:00 PM EST Note Date & Type Note Facility 01-22-2024 Evaluation + Plan note Future Scheduled TestsCT Abdomen w/ Contrast 01/22/24 [facility] 01-13-2024 Hospital Discharge instructions Patient Education 01/13/2024 20:49:15 Acute Pancreatitis, Jkqg-xw-Pqen Acute Pancreatitis Acute pancreatitis happens when there is sudden swelling and irritation of the pancreas. The pancreas is a gland in your body that helps to control blood sugar. This gland also helps to digest food. This condition can last a few days and cause serious problems. Some problems can be life-threatening. The lungs, heart, and kidneys may stop working. What are the causes? Causes may include: Heavy alcohol use. Drug use. Gallstones. An abnormal growth of tissue (tumor) in the pancreas. Other causes include: Some medicines or some chemicals. Diabetes or infection. High levels of a type of fat in your blood. High levels of calcium in your blood. Damage caused by: ?An accident. ?The poison (venom) from a scorpion sting. Belly (abdominal) surgery. The body's defense system (immune system) attacking the pancreas (autoimmune pancreatitis). Genes that are passed from parent to child (inherited). Sometimes, the cause is not known. What are the signs or symptoms? Pain in the upper belly that may be felt in the back. The pain may be very bad. It often gets worse after you eat. A tender and swollen belly. Feeling like you may vomit (nausea) and vomiting. Fever. How is this treated? A stay in the hospital, in many cases. Pain medicine. Fluid through an IV tube. Placing a tube in the stomach to take out the stomach contents. This also helps you stop vomiting. Not eating until you vomit less. Antibiotic medicines, if you have an infection. Steroid medicines, if your problem is caused by attacks on your body's own tissues by your defense system. Surgery, if your problem is caused by gallstones or other blockage. Treating other health problems that may be the cause. Follow these instructions at home: Medicines Take qonm-ltz-hampmgf and prescription medicines only as told by your doctor. If you were prescribed an antibiotic medicine, take it as told by your doctor. Do not stop taking it even if you start to feel better. If told, take steps to prevent problems with pooping (constipation). You may need to: ? Take medicines. You will be told what medicines to take. ?Eat foods that are high in fiber. These include beans, whole grains, and fresh fruits and vegetables. ?Limit foods that are high in fat and sugar. These include fried or sweet foods. Ask your doctor if you should avoid driving or using machines while you are taking your medicine. Eating and drinking Follow instructions from your doctor about what to eat and drink. You may need to: ?Avoid alcohol. ?Eat foods that do not have a lot of fat in them. Eat small meals often. Do not eat big meals. Drink enough fluid to keep your pee (urine) pale yellow. Do not drink alcohol if it caused your condition. General instructions Do not smoke or use any products that contain nicotine or tobacco. If you need help quitting, ask your doctor. Get plenty of rest. Check your blood sugar at home if your doctor tells you to. Keep all follow-up visits. Contact a doctor if: You do not get better as fast as expected. Your symptoms get worse. You have new symptoms. You have pain or weakness that lasts a long time. You keep feeling like you may vomit. You get better and then pain comes back. You have a fever. Get help right away if: You vomit every time you eat or drink. Your pain gets very bad. Your skin or the white parts of your eyes turn yellow. You have sudden swelling in your belly. You feel dizzy or you faint. Your blood sugar is high (over 300 mg/dL). You vomit blood. These symptoms may be an emergency. Do not wait to see if the symptoms will go away. Get help right away. Call 911. Summary Acute pancreatitis happens when there is sudden swelling and irritation of the pancreas. This condition is often caused by heavy alcohol use, drug use, or gallstones. You will likely have to stay in the hospital for treatment. This information is not intended to replace advice given to you by your health care provider. Make sure you discuss any questions you have with your health care provider. Document Revised: 06/10/2022 Document Reviewed: 06/10/2022 [employer] Patient Education 2022 [employer]. Follow Up Care 01/13/2024 18:23:07 With:Zenon Hernandez Address: [address] [place] [phone] Business (1) When:01/16/2024 20:48:55 Comments:Call to schedule an appointment with the pipe fitter marine for further management of care With:Claudia Ellington Address: [address] [place] [address] [place] [address]- Business (1) When:Within 3 Day(s) [facility] 01-12-2024 Hospital Discharge instructions Patient Education 01/12/2024 17:04:35 Full Liquid Diet Full Liquid Diet A full liquid diet refers to fluids and foods that are liquid, or will become liquid, at room temperature. This diet should only be used for a short period of time to help you recover from illness or surgery. Your health care provider or dietitian will help determine when it is safe to eat regular foods again. What are tips for following this plan? Reading food labels Check food labels of nutrition shakes for the amount of protein. Look for nutrition shakes that have at least 8 10 grams of protein in each serving. Choose drinks, such as milks and juices, that are fortified or enriched. This means that vitamins and minerals have been added. Shopping Buy pre-made nutrition shakes to keep on hand. To vary your choices, buy different flavors of milks and shakes. Meal planning Choose flavors and foods that you enjoy. To make sure you get enough energy and calories from food: ?Have three full liquid meals each day. Have a liquid snack between each meal. ?Drink 6 8 oz (177 237 mL) of a nutritional supplement shake with meals or as snacks. ?Add protein powder, powdered milk, milk, or yogurt to shakes to increase the amount of protein. Drink at least one serving a day of citrus fruit juice or fruit juice that has vitamin C added. General guidelines Before starting the full liquid diet, check with your health care provider to know what foods you should avoid. These may include full-fat or high-fiber liquids. You may have any liquid or food that becomes a liquid at room temperature. The food is considered a liquid if it can be poured off a spoon at room temperature. Do not drink alcohol unless approved by your health care provider. This diet gives you most of the nutrients that you need for energy, but you may not get enough of certain vitamins, minerals, and fiber. Make sure to talk to your health care provider or dietitian about: ?How many calories you need to eat each day. ?How much fluid you should have each day. ?Taking a multivitamin or a nutritional supplement. What foods should I eat? Fruits Fruit juice without pulp. Strained fruit pur es (seeds and skins removed). Vegetables Pulp-free tomato or vegetable juice. Vegetables pur ed in soup. Grains Thin, hot cereal, such as farina. Soft-cooked pasta or rice pur ed in soup. Meats and other proteins Beef, chicken, and fish broths. Powdered protein supplements. Dairy Milk and milk-based beverages, including milk shakes and instant breakfast mixes. Smooth yogurt. Pur ed cottage cheese. Fats and oils Melted margarine and butter. Cream. Canola, almond, avocado, corn, grapeseed, sunflower, and sesame oils. Gravy. Beverages Water. Coffee and tea (caffeinated or decaffeinated). Logan. Liquid nutritional supplements. Soft drinks. Nondairy milks, such as almond, coconut, rice, or soy milk. Sweets and desserts Custard. Pudding. Flavored gelatin. Smooth ice cream (without nuts or candy pieces). Sherbet. Frozen ice pops. [place] ice. Pudding pops. Seasonings and condiments Salt and pepper. Spices. Vinegar. Ketchup. Yellow mustard. Smooth sauces, such as Hollandaise, cheese sauce, or white sauce. Soy sauce. Syrup. Honey. Jelly (without fruit pieces). Other foods Logan powder. Cream soups. Strained soups. The items listed above may not be a complete list of foods and beverages you can eat. Contact a dietitian for more information. What foods should I avoid? Fruits All whole fresh, frozen, or canned fruits. Vegetables All whole fresh, frozen, or canned vegetables. Grains Whole grains. Pasta. Rice. Cold cereal. Bread. Crackers. Meats and other proteins All cuts of meat, poultry, and fish. Eggs. Tofu and soy protein. Nuts and nut butters. Precooked or cured meat, such as sausages or meat loaves. Dairy Hard cheese. Yogurt with fruit chunks. Fats and oils Coconut oil. Palm oil. Lard. Cold butter. Sweets and desserts Ice cream or other frozen desserts that contain solids, such as nuts, chocolate chips, and pieces of cookies. Cakes. Cookies. Candy. Seasonings and condiments Stone-ground mustard. Other foods Soups with chunks or pieces. The items listed above may not be a complete list of foods and beverages you should avoid. Contact a dietitian for more information. Summary A full liquid diet refers to fluids and foods that are liquid or will become liquid at room temperature. This diet should only be used for a short period of time to help you recover from illness or surgery. Ask your health care provider or dietitian when it is safe for you to eat regular foods. To make sure you get enough calories and nutrients, eat three meals each day with snacks in between. Drink pre-made nutritional supplement shakes or add protein powder to homemade shakes. Talk to your health care provider about taking a vitamin and mineral supplement. This information is not intended to replace advice given to you by your health care provider. Make sure you discuss any questions you have with your health care provider. Document Revised: 05/07/2021 Document Reviewed: 05/07/2021 Q-Bot Patient Education 2022 [employer]. 01/12/2024 16:42:34 Nausea, Adult, Khxo-mi-Jmtr Nausea, Adult Nausea is feeling like you may vomit. Feeling like you may vomit is usually not serious, but it may be an early sign of a more serious medical problem. Vomiting is when stomach contents forcefully come out of your mouth. If you vomit, or if you are not able to drink enough fluids, you may not have enough water in your body (get dehydrated). If you do not have enough water in your body, you may: Feel tired. Feel thirsty. Have a dry mouth. Have cracked lips. Pee (urinate) less often. Older adults and people who have other diseases or a weak body defense system (immune system) have a higher risk of not having enough water in the body. The main goals of treating this condition are: To relieve your nausea. To ensure your nausea occurs less often. To prevent vomiting and losing too much fluid. Follow these instructions at home: Watch your symptoms for any changes. Tell your doctor about them. Eating and drinking Take an ORS (oral rehydration solution). This is a drink that is sold at pharmacies and stores. Drink clear fluids in small amounts as you are able. These include: ?Water. ?Ice chips. ?Fruit juice that has water added (diluted fruit juice). ?Low-calorie sports drinks. Eat bland, tlzq-wz-nbhryj foods in small amounts as you are able, such as: ?Bananas. ?Applesauce. ?Rice. ?Low-fat (lean) meats. ?Neopit. ?Crackers. Avoid drinking fluids that have a lot of sugar or caffeine in them. This includes energy drinks, sports drinks, and soda. Avoid alcohol. Avoid spicy or fatty foods. General instructions Take rbtz-ncc-veendex and prescription medicines only as told by your doctor. Rest at home while you get better. Drink enough fluid to keep your pee (urine) pale yellow. Take slow and deep breaths when you feel like you may vomit. Avoid food or things that have strong smells. Wash your hands often with soap and water for at least 20 seconds. If you cannot use soap and water, use hand carpet installation specialist. Make sure that everyone in your home washes their hands well and often. Keep all follow-up visits. Contact a doctor if: You feel worse. You feel like you may vomit and this lasts for more than 2 days. You vomit. You are not able to drink fluids without vomiting. You have new symptoms. You have a fever. You have a headache. You have muscle cramps. You have a rash. You have pain while peeing. You feel light-headed or dizzy. Get help right away if: You have pain in your chest, neck, arm, or jaw. You feel very weak or you faint. You have vomit that is bright red or looks like coffee grounds. You have bloody or black poop (stools) or poop that looks like tar. You have a very bad headache, a stiff neck, or both. You have very bad pain, cramping, or bloating in your belly (abdomen). You have trouble breathing or you are breathing very quickly. Your heart is beating very quickly. Your skin feels cold and clammy. You feel confused. You have signs of losing too much water in your body, such as: ?Dark pee, very little pee, or no pee. ?Cracked lips. ?Dry mouth. ?Sunken eyes. ?Sleepiness. ?Weakness. These symptoms may be an emergency. Get help right away. Call 911. Do not wait to see if the symptoms will go away. Do not drive yourself to the hospital. Summary Nausea is feeling like you are about vomit. If you vomit, or if you are not able to drink enough fluids, you may not have enough water in your body (get dehydrated). Eat and drink what your doctor tells you. Take sgwa-rka-gsxvhls and prescription medicines only as told by your doctor. Contact a doctor right away if your symptoms get worse or you have new symptoms. Keep all follow-up visits. This information is not intended to replace advice given to you by your health care provider. Make sure you discuss any questions you have with your health care provider. Document Revised: 01/24/2022 Document Reviewed: 01/24/2022 [employer]-Bot Patient Education 2022 [employer]. 01/12/2024 16:42:31 Abdominal Pain, Adult, Ciai-ws-Jffw Abdominal Pain, Adult Many things can cause belly (abdominal) pain. Most times, belly pain is not dangerous. Many cases of belly pain can be watched and treated at home. Sometimes, though, belly pain is serious. Your doctor will try to find the cause of your belly pain. Follow these instructions at home: Medicines Take ztgb-jck-tbypmpl and prescription medicines only as told by your doctor. Do not take medicines that help you poop (laxatives) unless told by your doctor. General instructions Watch your belly pain for any changes. Drink enough fluid to keep your pee (urine) pale yellow. Keep all follow-up visits as told by your doctor. This is important. Contact a doctor if: Your belly pain changes or gets worse. You are not hungry, or you lose weight without trying. You are having trouble pooping (constipated) or have watery poop (diarrhea) for more than 2 3 days. You have pain when you pee or poop. Your belly pain wakes you up at night. Your pain gets worse with meals, after eating, or with certain foods. You are vomiting and cannot keep anything down. You have a fever. You have blood in your pee. Get help right away if: Your pain does not go away as soon as your doctor says it should. You cannot stop vomiting. Your pain is only in areas of your belly, such as the right side or the left lower part of the belly. You have bloody or black poop, or poop that looks like tar. You have very bad pain, cramping, or bloating in your belly. You have signs of not having enough fluid or water in your body (dehydration), such as: ?Dark pee, very little pee, or no pee. ?Cracked lips. ?Dry mouth. ?Sunken eyes. ?Sleepiness. ?Weakness. You have trouble breathing or chest pain. Summary Many cases of belly pain can be watched and treated at home. Watch your belly pain for any changes. Take mdcg-ztf-wpekesl and prescription medicines only as told by your doctor. Contact a doctor if your belly pain changes or gets worse. Get help right away if you have very bad pain, cramping, or bloating in your belly. This information is not intended to replace advice given to you by your health care provider. Make sure you discuss any questions you have with your health care provider. Document Revised: 11/28/2019 Document Reviewed: 11/28/2019 [employer]-Bot Patient Education 2022 [employer]. Follow Up Care 01/12/2024 14:44:40 With:Claudia Ellington MD Address: [address] [place] [id number] When:01/15/2024 [facility] 06-30-2023 History of Present illness Narrative Referring Provider: Claudia Ellington MD [...] her perioperative risk. documented in this encounter [facility] 05-25-2023 Note Admission and Discha rge Information Admit Date/Time:05/11/2023 07:29 Admitting Physician - Akosua LR MD Referring Physician - PEYTON SALCIDO CNP Admitting Diagnoses: Discharge Diagnoses 1. Seizures, 05/11/2023 2. History of gastroesophageal reflux (GERD), 05/11/2023 3. Insomnia, 05/11/2023 4. Depression, 05/11/2023 5. Seasonal allergies, 05/11/2023 6. Morbid obesity, 05/13/2023 Procedure History Myringotomy and drainage of middle ear. Hospital Course 17-year-old female admitted to the hospital with the purpose of long-term video EEG monitoring per neurology was on consultation. Per neurology patient has had recurrent episodes of alteration of awareness sometimes induced by stress. Patient was treated with Keppra 1000 mg twice daily and monitored for 24 hours in ICU setting. It was thought that patient had 3 episodes on during the night however were deemed not associated with epileptiform activity and are nonepileptic in nature. Patient was cleared by neurology for discharge home with recommendation to continue Keppra 500 mg twice daily and will be weaned off in the outpatient setting by Dr. Zamorano who patient follows for neurology. Patient was instructed that she is not to drive until she is cleared by neurology to do so. Today on exam patient is doing well. Vitals and labs are stable. Patient is anxious to discharge home and will discharge home in stable condition. Physical Exam General: alert, no acute distress Skin: warm, dry Head: no trauma, normocephalic Neck: Trachea midline, no adenopathy, no tenderness Eye: normal conjunctiva, sclera clear Pupils 3-4 mm round and reactive. ENMT: TM's clear, oral mucosa moist, no pharyngeal erythema or exudate Cardiovascular: regular rate and rhythm, normal peripheral perfusion Respiratory: Lungs CTA, respirations non labored Chest wall: no deformity. Gastrointestinal: soft, non distended, no tenderness, no guarding. Back: No tenderness, Normal ROM, Normal alignment. Extremities: no deformity, no trauma Neurological: oriented x 4, LOC appropriate for age, CN II-XII intact, motor strength equal & normal bilaterally, sensation equal & normal bilaterally, speech normal Psychiatric: cooperative, flat affect Laboratory Results Automated Diff (05/12/2023) Neutro Auto - 46.4 % Lymph Auto - 41.3 % Becker Auto - 8.8 % Eos Auto - 3.1 % Basophil Auto - 0.4 % Neutro Absolute - 2.6 E9/L Lymph Absolute - 2.3 E9/L Becker Absolute - 0.5 E9/L Eos Absolute - 0.2 E9/L Basophil Absolute - 0.0 E9/L Capillary Glucose POC (05/12/2023) Glucose Cap - 84 mg/dL POC Device SN - [id number] POC User ID - [id number] POC Username - [email or web address] NERY CBC w/ Auto Diff (05/12/2023) WBC - 5.6 E9/L RBC - 4.5 E12/L Hgb - 13.2 gm/dL Hct - 38.5 % MCV - 85.2 fL MCH - 29.2 pg MCHC - 34.3 gm/dL RDW - 13.8 % Platelet - 332.0 E9/L MPV - 8.2 fL CMP (05/12/2023) Glucose Lvl - 93 mg/dL BUN - 12 mg/dL Creatinine - 0.9 mg/dL BUN/Creat Ratio - 13 Sodium Lvl - 136 mmol/L Potassium Lvl - 3.7 mmol/L Chloride - 108 mmol/L CO2 - 24 mmol/L AGAP - 8 mEq/L Calcium Lvl - 9.0 mg/dL Alk Phos - 50 Int._Unit/L ALT - 13 Int._Unit/L AST - 16 Int._Unit/L Total Protein - 7.4 gm/dL Albumin Lvl - 3.0 gm/dL Globulin - 4.4 gm/dL A/G Ratio - 0.7 Bili Total - 0.4 mg/dL eGFR (05/12/2023) eGFR - 95 mL/min/1.73 m2 Magnesium Level (05/12/2023) Magnesium - 2.0 mg/dL Tests Performed Automated Diff Capillary Glucose POC CBC w/ Auto Diff CMP eGFR Magnesium Level Discharge Plan Discharge Disposition Discharge To, Anticipated II - Home with responsible caregiver Discharged to - Home independently Discharge Diet Discharge Diet(s): Fat Modified- Low cholesterol (05/13/23 12:02:00) Discharge Medication List Prescriptions APAP/butalbital/caffeine 325 mg-50 mg-40 mg Tab, 1 tab(s), Oral, q4hr, PRN Keppra 500 mg Tab, 500 mg= 1 tab(s), Oral, BID Home cetirizine 5 mg oral tablet, 10 mg= 2 tab(s), Oral, Daily cloNIDine 0.1 mg tab, 0.1 mg= 1 tab(s), Oral, Daily FLUoxetine 40 mg Cap Junel Fe /20 oral tablet Lamictal 25 mg Tab, 25 mg= 1 tab(s), Oral, Daily lurasidone 60 mg oral tablet melatonin-pyridoxine 3 mg-10 mg oral tablet, extended release Protonix 40 mg tablet Follow-up With When Contact Information Joann Zamorano [address] [address]- Business (1) Additional Instructions: Call for hospital followup appointment 2-3 weeks Claudia Rakel [address] [place] [address]- Business (1) Additional Instructions: Call for followup appointment Patient Education Seizure, Adult [facility] Comment on above: Result Comment: Elec tronically Signed By: Shazia NUNES\.br\Date and Time Signed: 05/24/23 18:49 EDT\.br\Electronically Co-Signed By: Akosua LR MD\.br\Date and Time Co-Signed: 05/25/23 07:00 EDT 05-13-2023 Hospital Discharge instructions Patient Education 05/13/2023 12:04:21 Seizure, Adult [...] surroundings are moving when they are not. D j vu. This is a feeling of having seen [...] Follow these instructions at home: Medicines Take byxh-grn-yprxopa and prescription medicines only as told by [...] medicines are used to treat seizures. Take qdyc-jya-zsgihnc and prescription medicines only as told by your health care provider. This information is not intended to replace advice given to you by your health care provider. Make sure you discuss any questions you have with your health care provider. Document Revised: 01/25/2021 Document Reviewed: 01/25/2021 [employer]-Bot Patient Education 2022 [employer]. Follow Up Care 04/22/2023 12:48:03 With:Joann Zamorano Address: [place] [address] [address] [place] [phone]- Business (1) When: Unknown Comments:Call for hospital followup appointment 2-3 weeks With:Claudia Ellington Address: [facility] [place] [address] [place] [address]- Business (1) When: Unknown Comments:Call for followup appointment [facility] 05-13-2023 Evaluation + Plan note Extrac [...] rhinitis) Extracted from: Title:Admission H & P Author:Alicia Sidhu Date:05/11/23 1. Seizures (R56.9: Unspecif ied convulsions) [...] date 05/11/23 16:03:00 EDT, 05/11/23 16:03:00 EDT [facility] Prescription, lurasidone 60 mg oral tablet, Oral, [...] Signs Weight Extracted from: Title:Consult Note-neurology Author:Diann SHER, N ichole Date:05/11/23 The patient is an [...] on the hospitalization course and therapeutic plan. [facility] NoteChief Complaint LTME Reason for Consultation LTME monitoring History of Present Illness This is an 17-year-old female that was direct admitted to the hospital under neurology care for thepurpose of LTME monitoring. History significant for seizures, seasonal allergies, depression, insomnia, GERD, suicidal ideations, The patient is admitted for long-term video EEG monitoring to determine if recurrent episodes are epileptiform. The patient denies any episodes over the past 24 hours. Review of Systems Constitutional: no fever, no chills, no sweats, no weakness Respiratory: no shortness of breath, no cough, no orthopnea, no wheezing Cardiovascular: no chest pain, no palpitations, no edema Additional ROS info: Except as noted in the above Review of Systems and in the History of Present Illness all other systems have been reviewed and are negative or noncontributory. Physical Exam Vitals & Measurements T: 36.7 ?C(Oral) TMIN: 36.5 ?C(Oral) TMAX: 36.7 ?C(Oral) HR: 86(Monitored) RR: 19 BP: 124/90 SpO2: 97% HT: 165.10 cm WT: 83.7 kg The patient is awake and alert. The patient is oriented x3 Language is intact including comprehension and fluency, fund of knowledge is intact, memory is intact Cranial nerves: Pupils are equal round and reactive to light and accomodation, extraocular movements intact, visual lujan are full to confrontation, funduscopic exam is normal, face is symmetric bilaterally, sensations intact in the face, palate elevates bilaterally, tongue protrudes midline, hearing is intact to finger rub, shoulder shrug is symmetric Motor exam: Strength testing is 5 out of 5 MRC scale strength in all 4 extremities. Deep tendon reflexes are 2+ and symmetric. Tone is normal throughout. Plantar reflexes flexor bilaterally Sensory exam: Sensations intact to light touch and pinprick sensation in all 4 extremities Cerebellar exam: Tqywtq-cc-oeac reveals no ataxia. Gait is normal Assessment/Plan The patient is admitted for long-term video [...] Seasonal allergies (J30.2: Other seasonal allergic rhinitis) Problem List/Past Medical History Ongoing Smoker Historical Seizure Procedure/Surgical History Myringotomy and drainage of middle ear. Medications Inpatient acetaminophen 325 mg Tab, 650 mg= 2 tab(s), Oral, q6hr, PRN cloNIDine 0.1 mg tab, 0.1 mg= 1 tab(s), Oral, Daily drospirenone-ethinyl estradiol 3 mg-0.03 mg Tab, 1 tab(s), Oral, Daily FLUoxetine 20 mg Cap, 40 mg= 2 cap(s), Oral, Daily Keppra 500 mg Tab, 1000 mg= 2 tab(s), Oral, BID Lamictal 25 mg Tab, 25 mg= 1 tab(s), Oral, Daily loratadine 10 mg Tab, 10 mg= 1 tab(s), Oral, Daily lurasidone, 60 mg= 3 tab(s), Oral, Daily melatonin 3 mg Tab, 3 mg= 1 tab(s), Oral, Bedtime, PRN Phenergan 25 mg/mL Injection, 12.5 mg= 0.5 mL, IV Push, q6hr, PRN Protonix 40 mg Tab-DR, 40 mg= 1 tab(s), Oral, Daily Zofran 4 mg/2 mL Injection, 4 mg= 2 mL, IV Push, q6hr, PRN Home APAP/butalbital/caffeine 325 mg-50 mg-40 mg Tab, 1 tab(s), Oral, q4hr, PRN cetirizine 5 mg oral tablet, 10 mg= 2 tab(s), Oral, Daily cloNIDine 0.1 mg tab, 0.1 mg= 1 tab(s), Oral, Daily FLUoxetine 40 mg Cap Junel Fe 08/22 oral tablet Keppra, 1000 mg, Oral, BID Lamictal 25 mg Tab, 25 mg= 1 tab(s), Oral, Daily lurasidone 60 mg oral tablet melatonin-pyridoxine 3 mg-10 mg oral tablet, extended release Protonix 40 mg tablet Allergies No Known Allergies Social History Alcohol Substance Abuse Tobacco Current vaping or e-cigarette use Smokeless Tobacco Use:., 12/19/2022 Never (less than 100 in lifetime) Tobacco Use:., 12/04/2021 Immunizations Vaccine Date Status SARS-CoV-2 (COVID-19) mRNAMUL.ORD![id number] 10/03/2022 Recorded meningococcal group B vaccine 07/31/2022 Recorded SARS-CoV-2 (COVID-19) mRNA-1273 vaccine 07/31/2022 Recorded meningococcal group B vaccine 07/01/2022 Recorded meningococcal conjugate vaccine 07/01/2022 Recorded influenza virus vaccine, inactivated 07/01/2022 Recorded SARS-CoV-2 (COVID-19) mRNA-1273 vaccine 07/01/2022 Recorded influenza virus vaccine, inactivated 08/09/2019 Recorded human papillomavirus vaccine 08/09/2019 Recorded diphtheria/pertussis, acel/tetanus adult 01/28/2018 Recorded meningococcal conjugate vaccine 01/28/2018 Recorded human papillomavirus vaccine 01/26/2018 Recorded hepatitis A pediatric vaccine 07/21/2011 Recorded measles/mumps/rubella/varicella vaccine 01/16/2011 Recorded hepatitis A pediatric vaccine (more content not included)...[facility] Comment: Electronically Signed By: Constanza Landin LPN\.br\Date and Time Signed: 05/12/23 07:52 EDT\.br\Electronically Co- Signed By: Melecio Rubio MD\.br\Date and Time Co-Signed: 05/12/23 18:08 EDT 05-12-2023 NoteChief Complaint LTME Reason for Consultation LTME History of Present Illness The patient is an 17-year-old female admitted to the hospital for long-term video EEG monitoring. The patient has recurrent episodes of alteration of awareness sometimes induced by stress. The patient is amnestic of the events which occur. The patient states that he has had multiple episodes over the past year. The patient has had evaluated by Dr. Landin and had outpatient EEGs which were nondiagnostic. The patient currently denies any focal neurological findings. The patient is admitted for further work-up and evaluation. Review of Systems Constitutional: no fever, no chills, no sweats, no weakness Respiratory: no shortness of breath, no cough, no orthopnea, no wheezing Cardiovascular: no chest pain, no palpitations, no edema Additional ROS info: Except as noted in the above Review of Systems and in the History of Present Illness all other systems have been reviewed and are negative or noncontributory. Physical Exam Vitals & Measurements T: 36.5 ?C(Oral) HR: 82(Monitored) RR: 22 BP: 116/76 SpO2: 96% HT: 165.10 cm WT: 116.7 kg The patient is awake and alert. The patient is oriented x3. Language is intact including comprehension and fluency, fund of knowledge is intact, memory is intact. Cranial nerves: Pupils are equal round and reactive to light and accommodation, extraocular movements intact, visual lujan are full to confrontation, funduscopic exam is normal, face is symmetric bilaterally, sensations intact in the face, palate elevates bilaterally, tongue protrudes midline, hearing is intact to finger rub, shoulder shrug is symmetric. Motor exam: Strength testing is 5 out of 5 MRC scale strength in all 4 extremities. Deep tendon reflexes are 2+ and symmetric. Tone is normal throughout. Plantar reflexes flexor bilaterally. Sensory exam: Sensations intact to light touch and pinprick sensation in all 4 extremities. Cerebellar exam: Wjhbbt-kd-jwhs reveals no ataxia. Gait is normal. Assessment/Plan The patient is an 17-year-old female with recurrent episodes of alteration of awareness being admitted to the long-term video EEG monitor for possible diagnosis of seizure versus nonepileptic events.I will continue the patient on 1000 mg twice daily for now and we will continue to follow the patient clinically overt the next 24 hours. We will consider decreasing medications pending her clinical course. I counseled the patient on the hospitalization course and therapeutic plan. Problem List/Past Medical History Ongoing Smoker Historical Seizure Procedure/Surgical History Myringotomy and drainage of middle ear. Medications Inpatient acetaminophen 325 mg Tab, 650 mg= 2 tab(s), Oral, q6hr, PRN Phenergan 25 mg/mL Injection, 12.5 mg= 0.5 mL, IV Push, q6hr, PRN Zofran 4 mg/2 mL Injection, 4 mg= 2 mL, IV Push, q6hr, PRN Home APAP/butalbital/caffeine 325 mg-50 mg-40 mg Tab, 1 tab(s), Oral, q4hr, PRN cetirizine 5 mg oral tablet, 10 mg= 2 tab(s), Oral, Daily cloNIDine 0.1 mg tab, 0.1 mg= 1 tab(s), Oral, Daily FLUoxetine 40 mg Cap Junel Fe 08/22 oral tablet Keppra, 1000 mg, Oral, BID Lamictal 25 mg Tab, 25 mg= 1 tab(s), Oral, Daily lurasidone 60 mg oral tablet melatonin-pyridoxine 3 mg-10 mg oral tablet, extended release Protonix 40 mg tablet Allergies No Known Allergies Social History Alcohol Substance Abuse Tobacco Current vaping or e-cigarette use Smokeless Tobacco Use:., 12/19/2022 Never (less than 100 in lifetime) Tobacco Use:., 12/04/2021 Immunizations Vaccine Date Status SARS-CoV-2 (COVID-19) [id number] 10/03/2022 Recorded meningococcal group B vaccine 07/31/2022 Recorded SARS-CoV-2 (COVID-19) mRNA-1273 vaccine 07/31/2022 Recorded meningococcal group B vaccine 07/01/2022 Recorded meningococcal conjugate vaccine 07/01/2022 Recorded influenza virus vaccine, inactivated 07/01/2022 Recorded SARS-CoV-2 (COVID-19) mRNA-1273 vaccine 07/01/2022 Recorded influenza virus vaccine, inactivated 08/09/2019 Recorded human papillomavirus vaccine 08/09/2019 Recorded diphtheria/pertussis, acel/tetanus adult 01/28/2018 Recorded meningococcal conjugate vaccine 01/28/2018 Recorded human papillomavirus vaccine 01/26/2018 Recorded hepatitis A pediatric vaccine 07/21/2011 Recorded measles/mumps/rubella/varicella vaccine 01/16/2011 Recorded hepatitis A pediatric vaccine 01/16/2011 Recorded diphtheria/pertussis,acel/tetanus/polio 01/16/2011 Recorded varicella virus vaccine 04/20/2006 Recorded diphtheria/pertussis, acel/tetanus ped 04/20/2006 Recorded measles/mumps/rubella virus vaccine 01/28/2006 Recorded Hib, unspecified formulation 01/28/2006 Recorded haemophilus b conjugate (PRP-T) vaccine 07/23/2005 Recorded diphth/hepB/pertussis,acel/polio/tetanus 07/23/2005 Recorded haemophilus b conjugate (PRP-T) vaccine 05/28/2005 Recorded diphth/hepB/pertussis,acel/polio/tetanus 05/28/2005 Recorded haemophilus b (more content not included)...[facility]:Result Comment: Electronically Signed By: Riya Tidwell RN\.br\Date and Time Signed: 05/11/23 09:39 EDT\.br\Electronically Co-Signed By: Melecio Rubio MD\.br\Date and Time Co-Signed: 05/12/23 08:36 [id number] NoteBasic Information Admit Date/Time:05/11/2023 07:29 Chief Complaint LTME History of Present Illness This is an 17-year-old female that was direct admitted to the hospital under neurology care for thepurpose of LTME monitoring. History significant for seizures, seasonal allergies, depression, insomnia, GERD, suicidal ideations, Review of Systems Constitutional: no fever, no chills, no sweats, no weakness Skin: no Jaundice, no rash, no lesions, nopetechiae ENMT: no ear pain, no sore throat, no congestion, no hoarseness Respiratory: no shortness of breath, no cough, no orthopnea, no wheezing Cardiovascular: no chest pain, no palpitations, no edema Gastrointestinal: no nausea, no vomiting, no diarrhea, no GI bleeding Genitourinary: no dysuria, no hematuria, no discharge, no pain Musculoskeletal: no back pain, no trauma Neurologic: no headache, no dizziness, no numbness, no weakness Psychiatric: no sleeping problems, no irritability, no mood swings/depression. Heme/Lymph: no bleeding tendency, no bruising tendency, no petechiae, no swollen nodes Allergy/Immunologic: no seasonal allergies, no food allergies, no recurrent infections, no impairedimmunity Additional ROS info: Except as noted in the above Review of Systems and in the History of Present Illness all other systems have been reviewed and are negative or noncontributory. Scoring Rooney Fall Risk Score: 15 (05/11/23) Physical Exam Vitals & Measurements T: 36.5 ?C(Oral) HR: 66(Monitored) RR: 18 BP: 124/79 SpO2: 98% HT: 165.10 cm WT: 116.7 kg *Patient was evaluated at 0745 AM on 05/11/2023. General: alert, no acute distress Skin: warm, dry Head: no trauma, normocephalic Neck: Trachea midline, no adenopathy, no tenderness Eye: normal conjunctiva, sclera clear ENMT: TM's clear, oral mucosa moist, no pharyngeal erythema or exudate Cardiovascular: regular rate and rhythm, normal peripheral perfusion Respiratory: Lungs CTA, respirations non labored Chest wall: no deformity. Gastrointestinal: soft, non distended, no tenderness, no guarding. Back: No tenderness, Normal ROM, Normal alignment. Extremities: no deformity, no trauma Neurological: oriented x 4, LOC appropriate for age, CN II-XII intact, motor strength equal & normal bilaterally, sensation equal & normal bilaterally, speech normal Psychiatric: cooperative, affect appropriate for age, normal judgement, normal psychiatric thoughts. Lab Results No qualifying data available. Assessment/Plan 1. Seizures (R56.9: Unspecified convulsions) Admitted for the purpose of LTME [...] Daily, Routine, Start date 05/12/23 9:00:00 EDT, 05/11/2316:01:00 EDT levetiracetam, 1,000 mg = 2 tab(s), Tab, Oral, BID, Routine, Start date 05/11/23 21:00:00 EDT, 05/11/23 16:01:00 EDT loratadine, 10 mg = 1 tab(s), Tab, Oral, Daily, Routine, Start date 05/12/23 9:00:00 EDT, 05/11/23 16:00:00 EDT melatonin, 3 mg = 1 tab(s), Tab, Oral, Bedtime PRN Insomnia, Routine, Start date 05/11/23 16:03:00 EDT, 05/11/23 16:03:00 EDT [facility] Prescription, lurasidone 60 mg oral tablet, Oral, Daily, Routine, Start date 05/12/23 9:00:00 EDT ondansetron, 4 mg = 2 mL, Injection, IV Push, q6hr PRN Nausea, Routine, Start date 05/11/23 9:25:00EDT, 05/11/23 9:25:00 EDT pantoprazole, 40 mg = [...] Resuscitation Status - Full Vital Signs Weight Attestation Progress note sent to Dr. Lr for review, will provide additional updates as needed/requested, signature indicates that physician is in agreement with POC. P (more content not included)...[facility] on above: Result Comment: Electronically Signed By: Alicia Sidhu\.br\Date and Time Signed: 05/11/23 20:00 EDT\.br\Electronically Co-Signed By: Akosua LR MD\.br\Date and Time Co-Signed: 05/12/23 06:56 [id number] Hospital Discharge instructions Patient Education 03/16/2023 17:50:47 [...] Follow these instructions at home: Medicines Take iaxs-lni-wwdswdz and prescription medicines only as told by [...] and water are not available, use hand carpet installation specialist. ?Leave stitches (sutures), skin glue, or adhesive [...] provider. Document Revised: 10/24/2021 Document Reviewed: 10/24/2021 Q-Bot Patient Education 2022 [employer]. 03/16/2023 17:50:47 Head Injury, Adult Head Injury, [...] Ask your health care provider for a kzbq-td-muvc plan for gradually returning to activities. Ask [...] your friends, family, a trusted colleague, and ticket worker about your injury, symptoms, and restrictions. Have them watch for any new or worsening problems. General instructions Take gmvz-yge-gxdnsvy and prescription medicines only as told by [...] provider. Document Revised: 06/01/2020 Document Reviewed: 06/01/2020 Q-Bot Patient Education 2022 [employer]. Follow Up Care 03/16/2023 16:19:26 With:Claudia Ellington Address: [address] [place] [address] Business (1) When:03/19/2023 17:36:52 [facility] Discharge summary Author John Monson [facility] March 13, 2023 9:40am Note Date/Time March 13, 2023 9: 40am [facility] [address] [place] [address] Discharge Summary Signed Patient: Rose Mary Schneider MR#: [id number] : 2005 Acct:[id number] Age/Sex: 17 / F Adm Date: 3 Loc: Room: 8T5411-[address]: John Monson MD Copies to: [...] admission note),the patient was pink slipped from [employer] and acknowledged she attempted suicide by overdosing [...] No Activity Restrictions Instructions: Depression, Adult (DC), [facility] DC Instructions Prescriptions: Continued levetiracetam 750 mg tablet 750 mg PO BID fluoxetine 40 mg capsule 40 mg PO DAILY Patient Comments: TAKE 1 CAPSULE BY MOUTH EVERY DAY cetirizine 10 mg tablet 20 mg PO DAILY Patient Comments: TAKE 2 TABLETS BY MOUTH EVERY DAY norethindrone-e.estradiol-iron [08/22 ()] 1 mg-20 mcg (21)/75 mg (7)tablet 1 tab PO DAILY Patient Comments: TAKE 1 TABLET BY MOUTH EVERY DAY lamotrigine 25 mg tablet 25 mg PO DAILY Patient Comments: TAKE 1 TABLETS BY ORAL ROUTE PER DAILY melatonin 3 mg tablet extended release 3 mg PO HS Patient Comments: TAKE 1 TABLET BY MOUTH EVERY DAY AT BEDTIME NEEDED jhonatanidone 60 mg tablet 60 mg PO DAILY.WITH.JOHNIEER Patient Comments: TAKE 1 TABLET BY ORAL ROUTE 1 TIME PER DAY WITH FOOD (AT LEAST 350 CALORIES) clonidine HCl 0.1 mg tablet 0.15 mg PO HS 14 Days Qty: 21 0RF Follow Up: [facility] [Outside] [facility] [Outside] (Sees Dr. Mackey.) Joann Zamorano DO [Courtesy/Consulting Physician] - (Contact your neurologist with any needs related to history of seizures. ) Claudia Ellington MD [Primary Care Provider] - (Contact your primary care providerwith any medical needs. ) Documented By: John Monson MD 03/13/23937 Signed By: <Electronically signed by John Monson MD> 03/13/[address] [facility] Work Phone: 1(748) 412-390708-10-2023 Progress note Author John Monson [facility] March 12, 2023 1:37pm Note Date/Time March 12, 2023 1: 37pm [facility] [address] [place] [address] Psychiatry Progress Note Signed Patient: Rose Mary Schneider MR#: [id number] : 2005 Acct:[id number] Age/Sex: 17 / F Adm Date: 3 Loc: Room: [address] [place] [address] Type : ADM IN Attending Dr: John [...] therapy Documented By: John Monson MD 03/12/23 0930 Signed By: <Electronically signed by John Monson MD> 03/12/[address] [facility] Work Phone: 1(109) 404-376208-09-2023 History and physical note Author John Monson [facility] March 11, 2023 1:28pm Note Date/Time March 11, 2023 1:2 8pm [facility] [address] [place] [address] Psychiatry H&P Signed Patient: Rose Mary Schneider MR#: [id number] : 2005 Acct:[id number] Age/Sex: 17 / F Adm Date: 3 Loc: Room: [address] [place] [address] Type: ADM IN Attending Dr: John Monson MD Copies to: MD Claudia Avila MD~ Date of Service: 03/11/2023 HPI History of Present Illness History of present illness: This is a 17-year-old female with reported history of depression and suicidal ideation who presents for inpatient admission due to worsening of suicidal thoughts. Reportedly (per admission note),the patient was pink slipped from [employer] and acknowledged she attempted suicide by overdosing [...] denies working currently. Previously worked at a [employer] until October [...] and she stated that she was compliant. [facility] Vaccinated for COVID-19?: Yes Medical History (Updated [...] signed by John Monson MD> 03/11/[address] [facility] Work Phone: 1(200) 590-569908-08-2023 Hospital Discharge instructions Patient Education 03/10/2023 12:40:41 [...] services (911 in the [place] Call the [facility] and human services helpline (211 in the [place] Call or text a suicide hotline to speak with a trained counselor. The following suicide hotlines are available in the [place]: ?0-145-346-TALK ( or 063 in the [place] ?0-775-AWECBZY ( ). ?Text 730599. This is the Crisis Text Line in the [place] ? . This is a hotline for Chinese speakers. ? . This is a hotline for TTY users. ?7-437-8-U-ELIZA ( ). This is a hotline for lesbian, schultz, bisexual, transgender, or questioning youth. ?For a list of hotlines in [place], visit suicide.org/hotlines/international/qpdeib-plvhczx-qxyrfglf.html Contact a crisis center or a local [...] list of crisis centers in [place], visit: suicideprevention.hi How to help yourself feel better Promise [...] to anyone or being with other people. ?Nrea-ek-hkbg conversation is best to help them understand [...] physical and a mental health checkup. Take mixe-hmn-lpfazmr and prescription medicines only as told by [...] information National Suicide Prevention Lifeline: www.suicidepreventionlifeline.org Hopeline: www.Model Metricsline.BRAND-YOURSELF [place] Foundation for Suicide Prevention: www.afsp.org The Eliza Project (for lesbian, schultz, bisexual, transgender, or questioning youth): www.thetrevorproject.org National [place] of Mental Health: www.nimh.nih.gov/health/topics/suicide-prevention Suicide Prevention Resources: afsp.org/tqemxsg-vszwxfoyfo-omnbjelzi Contact a health care provider if: You [...] provider. Document Revised: 02/13/2022 Document Reviewed: 11/28/2021 Q-Bot Patient Education 2022 [employer]. Follow Up Care 03/07/2023 14:09:50 With:Claudia Ellington Address: [address] [place] [address] Business (1) When: Unknown Comments:Call for followup appointment With:Joann Zamorano DO, [facility] Address: When:2 to 4 weeks [facility] Evaluation + Plan noteExtracted from: Title:Discharge Note Author:Lawrence Reveles DO Date:03/10/23 stable Discharge To, Anticipated II - Psychiatric Unit Transported by, Anticipated - Family Discharge Diet(s): Regular (03/10/23 11:06:00) Prescriptions No active prescription medications Home FLUoxetine 40 mg Cap Junel Fe 08/22 oral tablet Keppra, BID lurasidone 60 mg oral tablet melatonin-pyridoxine 3 mg-10 mg oral tablet, extended release With When Contact Information Claudia Ellington [address] [place] [id number] RETC (1) Additional Instructions: Call for followup appointment [...] this morning are within normal limits Ordered: [facility] Care/Day Moderate 35 Minutes 78869 2. Hypokalemia, (E87.6: Hypokalemia)Hypokalemia Resolved Ordered: [facility] Care/Day Moderate 35 Minutes 02819 2. Suicidal ideation (R45.851: Suicidal ideations) No longer expressing suicidal ideation She was pink slipped yesterday; awaiting MHP Ordered: [facility] Care/Day Moderate 35 Minutes 71676 3. Antihistamines overdose (T45.0X1A: Poisoning by antiallergic and antiemetic drugs, accidental (unintentional), initial encounter) Ordered: [facility] Care/Day Moderate 35 Minutes 49376 5. Depression (F32.A: Depression, unspecified) Continue fluoxetine Ordered: [facility] Care/Day Moderate 35 Minutes 49813 6. Seizure (R56.9: Unspecified convulsions) Continue Keppra, Lamictal and lurasidone Seizure precautions Ordered: [facility] Care/Day Moderate 35 Minutes 29838 7. Obesity (E66.9: Obesity, unspecified) Ordered: [facility] Care/Day Moderate 35 Minutes 71974 8. On deep vein thrombosis (DVT) prophylaxis (Z79.899: Other manager intermediate (current) drug therapy) Early ambulation with SCDs Ordered: [facility] Care/Day Moderate 35 Minutes 17133 Orders: Transfer Patient to Transfer Patient to [...] deep vein thrombosis (DVT) prophylaxis (Z79.899: Other manager intermediate (current) drug therapy) Early ambulation and SCDs [...] deep vein thrombosis (DVT) prophylaxis (Z79.899: Other usp (current) drug therapy) Extracted from: Title:APSO Note [...] overdose with Tylenol/diphenhydramine. Secondary to suicide ideation/attempt. ticket worker evaluation. Acetaminophen level ekta to 40 but trended down to undetectable. Treating with IVF Thursday. LFTs within normal limit. Repeat LFTs and PT/INR in AM. Ordered: Basic Metabolic Panel Comprehensive Metabolic Panel Consult to Community Product Specialist eGFR Extra Lav Tube Hepatic Function Panel [facility] Hospital Care/Day Moderate 35 Minutes 34483 2. Suicidal ideation (R45.851: Suicidal ideations) Supportive care. ticket worker evaluation. Mental health evaluation in a.m. once medically stable. Ordered: Consult to Community Product Specialist [facility] Care/Day Moderate 35 Minutes 96897 3. Antihistamines overdose (T45.0X1A: Poisoning by antiallergic and antiemetic drugs, accidental (unintentional), initial encounter) Treated with charcoal. Respiratory status and circulation currently stable. Treated with IV fluid. Bladder scan so far not retaining urine. Ordered: [facility] Care/Day Moderate 35 Minutes 46185 4. Hypokalemia (E87.6: Hypokalemia) Secondary to gastrointestinal loss and IV fluid. We will replace orally. Ordered: potassium chloride, 40 mEq = 2 tab(s), Tab-ER, Oral, BID for 2 dose(s), Stop date 03/09/23 8:59:00 EDT, Routine, Start date 03/08/23 9:00:00 EDT, 03/08/23 8:36:00 EDT Comprehensive Metabolic Panel [facility] Care/Day Moderate 35 Minutes 05095 5. Depression (F32.A: Depression, unspecified) On fluoxetine. Ordered: [facility] Care/Day Moderate 35 Minutes 44709 6. Seizure (R56.9: Unspecified convulsions) No reported seizure. On Lamictal and Keppra. Ordered: lorazepam, 1 mg = 0.5 mL, Injection, IV Push, QID PRN Seizure, Routine, Start date 03/07/23 18:04:00 EDT 7. Obesity (E66.9: Obesity, unspecified) Recommend therapeutic lifestyle modification changes. 8. On deep vein thrombosis (DVT) prophylaxis (Z79.899: Other usp (current) drug therapy) SCDs. Disposition: Pending mental health evaluation in AM. I discussed the diagnosis and plan of care with the patient at the bedside. Moderate level of MDM based on addressing above issues. This documentation was transcribed using voice recognition software. Several attempts were made to ensure accuracy. However inadvertent computerized ndt inspector errors may be present. Jennifer Retana. Hospitalist. [...] from: Title:Admission H & P Author:DEBBIE MARCANO, Zainafo Date:03/07/23 17-year-old female with history of seizure [...] observation. Ordered: Basic Metabolic Panel Consult to Community Product Specialist Hepatic Function Panel Initial Hospital Care/Day High 75 Minutes 52234 2. Suicidal ideation (R45.851: Suicidal ideations) Supportive care. Social work evaluation. Mental health evaluation once medically stable. Ordered: Consult to Community Product Specialist Initial Hospital Care/Day High 75 Minutes 22073 3. Antihistamines overdose (T45.0X1A: Poisoning by antiallergic and antiemetic drugs, accidental (unintentional), initial encounter) Treated with charcoal. Currently sedated with secured and circulation stable. Monitor patient with end-tidal CO2 monitor. We will observe for delirium/agitation and may treat with physostigmine. Bladder scan every 6 hours to check for urinary retention. Ordered: Initial Hospital Care/Day High 75 Minutes 63346 4. Depression (F32.A: Depression, unspecified) On fluoxetine at home. Ordered: Initial Hospital Care/Day High 75 Minutes 45517 5. Seizure (R56.9: Unspecified convulsions) On Keppra and Lamictal. Ordered: lorazepam, 1 mg = 0.5 mL, Injection, IV Push, QID PRN Seizure, Routine, Start date 03/07/23 18:04:00 EDT, 03/07/23 18:04:00 EDT Initial Hospital Care/Day High 75 Minutes 13314 6. Obesity (E66.9: Obesity, unspecified) Recommend therapeutic lifestyle modification changes. 7. On deep vein thrombosis (DVT) prophylaxis (Z79.899: Other manager intermediate (current) drug therapy) SCDs. Disposition: The patient [...] made to ensure accuracy. However inadvertent computerized ndt inspector errors may be present. Jennifer Retana. Hospitalist. [...] Continuous Salicylate Level XR Chest Single View [facility] NoteAdmission and Discharge Information Admit Date/Time:03/08/2023 17:43 Admitting Physician - Orlando Wade DO Consulting Physician - Melecio Rubio MD Admitting Diagnoses: 1. Poisoning by 4-Aminophenol derivatives, intentional self-harm, initial encounter, 03/09/2023 2. Hypokalemia, 03/09/2023 Discharge Order Date Discharge Patient - Ordered -- 03/10/23 12:22:00 EDT, to [address] [place] [address] Discharge Diagnoses 1. Intentional acetaminophen overdose, Poisoning by 4-Aminophenol derivatives, intentional self-harm, initial encounter 2. Hypokalemia, Hypokalemia 2. Suicidal ideation, 03/07/2023 3. Antihistamines overdose, 03/07/2023 5. Depression, 03/07/2023 6. Seizure, 03/07/2023 7. Obesity, 03/07/2023 8. On deep vein thrombosis (DVT) prophylaxis, 03/07/2023 Intentional ingestion - overdose, 03/07/2023 Suicidal ideation, 03/07/2023 Procedure History Myringotomy and drainage of middle ear. Hospital Course Significant Findings Please refer to history and physical details of admission. Patient presented to the emergency room on March 07 because of dizziness and lethargy as well as a headache after intentionally taking an entire bottle of Tylenol PM (about 100 tablets) and having some suicidal ideation. She recently broke up with her boyfriend. It started 1:30 PM that day after she broke up with her boyfriend and was feeling sad and she attempted to hurt herself by taking the Tylenol PM. She had 1 episode of vomiting prior to coming in and has stopped since she came to the ER.In the emergency room she was tachycardic but the rest of her vitals were stable. Labs are unremarkable except her acetaminophen level was 35. The rest of her tox screen, CMP and CBC with differential were unremarkable. Ethanol level was normal as well as salicylate acid level. Beta hCG was negative. He is admitted to the medical service for further evaluation. On the medical service she was admitted for intentional drug overdose with Tylenol PM and suicidal ideation. She was continued on Acetadote and given supportive care. She was also given activated charcoal for the antihistamine overdose. With Acetadote, her Tylenol levels resolved and she was stable. She did have possible seizure activity on the sixth requiring transfer to ICU for IV Keppra. She is no longer expressing suicidal ideation. Her LFTs are normal. [facility] She is excepted to 1 S. Procedures and Treatment Provided Neurology consultation Services Consulted Consult to Neurology - Ordered -- 03/08/23 13:54:00 EDT, AMS in the setting of OD, Consult and Co-manage Community Product Specialist Consult - Completed -- 03/07/23 17:58:00 EDT, Suicide Risk Physical Exam Vitals & Measurements T: 36.7 ?C(Oral) TMIN: 36.6 ?C(Oral) TMAX: 36.7 ?C(Axillary) HR: 91(Monitored) RR: 16 BP: 109/73 SpO2: 97% WT: 118.1 kg See today's progress note Laboratory Results Acetaminophen Level (03/08/2023) Acetaminoph Lvl - <10 mcg/mL Aspirin Level (03/07/2023) Salicylate Lvl - <4 mg/dL Automated Diff (03/07/2023) Neutro Auto - 60.3 % Lymph Auto - 28.7 % Becker Auto - 8.6 % Eos Auto - 1.9 % Basophil Auto - 0.5 % Neutro Absolute - 4.1 E9/L Lymph Absolute - 2.0 E9/L Becker Absolute - 0.6 E9/L Eos Absolute - 0.1 E9/L Basophil Absolute - 0.0 E9/L Beta hCG Qual (03/07/2023) Beta hCG Ql - NEGATIVE1 BMP (03/08/2023) Glucose Lvl - 103 mg/dL BUN - 7 mg/dL Creatinine - 0.8 mg/dL BUN/Creat Ratio - 9 Sodium Lvl - 138 mmol/L Potassium Lvl - 3.3 mmol/L Chloride - 105 mmol/L CO2 - 23 mmol/L AGAP - 13 mEq/L Calcium Lvl - 9.1 mg/dL BMP (03/07/2023) Glucose Lvl - 95 mg/dL BUN - 9 mg/dL Creatinine - 0.9 mg/dL BUN/Creat Ratio - 10 Sodium Lvl - 137 mmol/L Potassium Lvl - 3.6 mmol/L Chloride - 103 mmol/L CO2 - 24 mmol/L AGAP - 14 mEq/L Calcium Lvl - 9.4 mg/dL CBC w/ Auto Diff (03/07/2023) WBC - 6.8 E9/L RBC - 4.5 E12/L Hgb - 12.6 gm/dL Hct - 37.9 % MCV - 84.0 fL MCH - 28.0 pg MCHC - 33.3 gm/dL RDW - 14.0 % Platelet - 442.0 E9/L MPV - 7.9 fL Comprehensive Metabolic Panel (03/09/2023) Glucose Lvl - 93 mg/dL BUN - 11 mg/dL Creatinine - 0.7 mg/dL BUN/Creat Ratio - 16 Sodium Lvl - 137 mmol/L Potassium Lvl - 4.0 mmol/L Chloride - 107 mmol/L CO2 - 24 mmol/L AGAP - 10 mEq/L Calcium Lvl - 9.1 mg/dL Alk Phos - 47 Int._Unit/L ALT - 13 Int._Unit/L AST - 17 Int._Unit/L Total Protein - 7.1 gm/dL Albumin Lvl - 3.1 gm/dL Globulin - 4.0 gm/dL A/G Ratio - 0.8 Bili Total - 0.3 mg/dL Drug Screen Urine (03/07/2023) U Amph Scr - Negative U Domonique Scr - Negative U Benzodia Scr - Negative U Cannab Scr - Negative U Cocaine Scr - Negative U Opiate Scr - NEG1 U PCP Scr - Negative eGFR (03/09/2023) eGFR - 128 mL/min/1.73 m2 ETOH Level (03/07/2023) Ethanol Lvl - <5 mg/dL Hepatic Function Panel (03/08/2023) Alk Phos - 46 Int._Unit/L ALT - 14 Int._Unit/L AST - 17 Int._Unit/L Total Protein - 7.2 gm/dL A (more content not included)...[facility]: Result Comment: Electronically Signed By: Lawrence Reveles DO\Date and Time Signed: 03/10/23 12:27 [id number] NoteCRM entered the room to discuss dc planning. PCP, DME and insurance discussed. Patient is alert andinvolved in plan of care. Contact information provided and whiteboard updated. CRM spoke to pt and mother about pink slip. Pt is agreeable to inpt psych stay. Pending MHP eval and bed. Perdido slip willexp at 2pm. SW is following up. Ant dc 03/10. CRM to follow. MHP will facilitate transport.[facility] HospitalComment on above:Result Comment: Electronically Signed By: Peyton Mccarty\Lauritabr\Date and Time Signed: 03/10/23 12:11 [id number] NoteChief Complaint I over dose of tylenol Reason for Consultation AMS History of Present Illness 17-year-old woman. Presented March 07 after ingesting numerous acetaminophen/diphenhydramine pills as a suicide attempt. Was here being treated for that. Has had a couple episodes where she has some fluttering eyelids and altered mentation without loss of consciousness. She says that can happen before her big seizures, which are more like generalized shaking events. She follows with Dr. Zamorano. She has had EEG before. It seems the seizures are usually stress-induced. It sounds like there is strong suspicion for psychogenic nonepileptic seizures, but as a safety precaution she has been on Keppra, most recently 750 mg twice daily at home. She has been started on Lamictal 25 mg daily as a moodstabilizer by her mental health care provider. Review of Systems GEN: No fevers or chills. CV/PULM: No chest pain. No shortness of breath. No palpitations. NEURO: No headaches. No loss of vision. No double vision. No dysphagia. No speech changes. No focalweakness. No sensory loss. Physical Exam Vitals & Measurements T: 36.9 ?C(Oral) TMIN: 36.6 ?C(Axillary) TMAX: 36.9 ?C(Oral) HR: 68(Monitored) RR: 14 BP: 108/67 SpO2: 98% GEN: General appearance normal. Well-kempt. No distress. No visualized deformities or trauma. CARDIO/VASC: Limbs without significant edema and appear well-perfused. PULM: Normal work of breathing. SKIN: Visualized skin is intact and without lesions aside from age-related findings. MS: Affect is normal. Patient is alert and generally oriented. Normal attention. LANG: Speech is fluent and non-dysarthric. EYES: Pupils equal/reactive/consensual. Ocular motility full. No pathologic nystagmus. CN: Facial sensation normal. Hearing acuity normal. Face without droop and with normal motor function. MOTOR: Muscle bulk normal. Muscle tone normal. Muscle strength normal. No tremors. REFLEXES: Reflexes normoactive throughout. No pathologic reflexes. SENSORY: Light touch normal. Vibratory sensation intact in distal extremities. CEREBELLAR: No limb ataxia. Assessment/Plan Reason for consult: Altered consciousness, eyelid fluttering, [...] stabilization purposes. If that dose can gradually beworked up above 100 to 200 mg total daily then it could replace the Keppra. To be done gradually asan outpatient. 3. No other recommendations at this [...] deep vein thrombosis (DVT) prophylaxis (Z79.899: Other manager intermediate (current) drug therapy) Problem List/Past Medical History Ongoing Smoker Historical Seizure Procedure/Surgical History Myringotomy and drainage of middle ear. Medications Inpatient Ativan 2 mg/mL Injection, 1 mg= 0.5 mL, IV Push, QID, PRN Benadryl 25 mg Cap, 25 mg= 1 cap(s), Oral, q6hr, PRN FLUoxetine 20 mg Cap, 40 mg= 2 cap(s), Oral, Daily hydrALAZINE 20 mg/mL Inj, 10 mg= 0.5 mL, IV Push, q6hr, PRN Keppra 500 mg Tab, 1000 mg= 2 tab(s), Oral, BID Lamictal 25 mg Tab, 25 mg= 1 tab(s), Oral, Daily lurasidone, 60 mg= 3 tab(s), Oral, Daily Sodium Chloride 0.9% IV Britney 1000 mL 1,000 mL, 1000 mL, IV Zofran 4 mg/2 mL Injection, 4 mg= 2 mL, IV Push, q6hr, PRN Home FLUoxetine 40 mg Cap Junel Fe 08/22 oral tablet Keppra, BID lurasidone 60 mg oral tablet melatonin-pyridoxine 3 mg-10 mg oral tablet, extended release Allergies No Known Allergies Social History Alcohol Substance Abuse Tobacco Current vaping or e-cigarette use Smokeless Tobacco Use:., 12/19/2022 Never (less than 100 in lifetime) Tobacco Use:., 12/04/2021 Immunizations Vaccine Date Status SARS-CoV-2 (COVID-19) mRNAMUL.ORD![id number] 10/03/2022 Recorded (more content not included)...[facility]:Result Comment: Electronically Signed By: Irene Harding RN\.br\Date and Time Signed: 03/09/23 11:35 EDT\.br\Electronically Co-Signed By: Daniel Reaves DO\.br\Date and Time Co-Signed: 03/09/23 11:52 [id number] Note13:50: Nursing requested patient evaluation at bedside, when I entered the room patient is in no acute distress, she has her b/l eyes looking up towards the ceiling, she is able to return her eyes tobaseline vision when speaking with me, she makes eye contact with me when asked, she is able to answer all 4 sphere questions appropriately, speech is clear, tongue is midline, she is able to move all 4 extremities to command. Nursing states that behavior started once patient's mother entered the room. After I left the room nursing states that patient had an additional episode of staring at the ceiling and would not respond to them, but then quickly started making eye contact and speaking with them. Will obtain Keppra and Lamictal levels?pending. Case reviewed with Dr. Lr in agreement to transfer patient to ICU for close monitoring, will add neuro consult for AMS. Patient's labs are normalizing, Tylenol level has been normal today, she remains on antidote therapy. Patient is hemodynamically stable. Several minutes later patient's mother states that she is leaving as patient always acts out when she is present. Dr. Lr aware, nursing to update Dr. House 14:21: I returned to the room to re-evaluate patient as her mother has left, patient is sitting up in bed, watching t.v. & feeding herself, while chatting with a POCT who is at bedside monitoringher, she is easily engaging with with me without any events of neuro focal deficit. I suspect this was all behavioral in relation to her mother's presence, I spoke with Dr. Lr will DC transfer to ICU unit and continue to monitoring on the floor. I spoke with the nursing staff who feel that patient can made on the floor in a safe manner. d/w Dr. Rubio of neurology who recommended transfer to ICU, give load of keppra 1000 mg IV x 1 and then change maintenance dose to 1000 mg po bid. EEG ordered, will be completed tomorrowFirsthealther [facility] MarylandComment on above: Result Comment: Electronically Signed By: ADELINE MARCANO, Akosua\.br\Date and Time Signed: 03/08/23 16:06 [id number] NoteChief Complaint patient c/o dizziness, lethargy and LALA after intentionally taking an entire bottle of Tylenol PM- roughly 100 tablets (50,000 mg of tylenol and 2500 of benadryl). patient states her boyfriend recently broke up with her and she has been having SI History of Present Illness 17-year-old female with history of seizure disorder, anxiety, depression, seasonal allergies presented to the emergency room with complaints of dizziness, sleepiness, headache after she took about 100 pills of Tylenol PM in a suicide attempt and is being admitted with acetaminophen overdose, suicidal attempt. According to the patient she was in her usual state of health until about 1:30PM today after she broke up with her boyfriend she was feeling sad and attempted to hurt herself bytaking unknown amounts of Tylenol PM?approximately 100 pills that are in the bottle. [place] very dizzy and sleepy was also having headache and had 1 episode of vomiting. Vomiting has since stopped. Shedenies any headache currently, denies any abdominal pain, nausea or vomiting. She had tried committing suicide once a few years ago. Review of Systems Constitutional: no fever, no chills, no sweats, no weakness Skin: no Jaundice, no rash, no lesions, nopetechiae ENMT: no ear pain, no sore throat, no congestion, no hoarseness Respiratory: no shortness of breath, no cough, no orthopnea, no wheezing Cardiovascular: no chest pain, no palpitations, no edema Gastrointestinal: mild nausea, mild vomiting, no diarrhea, no GI bleeding Genitourinary: no dysuria, no hematuria, no discharge, no pain Musculoskeletal: no back pain, no trauma Neurologic: mild headache, mild dizziness, no numbness, no weakness Psychiatric: no sleeping problems, no irritability, no mood swings/depression. Heme/Lymph: no bleeding tendency, no bruising tendency, no petechiae, no swollen nodes Allergy/Immunologic: no seasonal allergies, no food allergies, no recurrent infections, no impairedimmunity Additional ROS info: Except as noted in the above Review of Systems and in the History of Present Illness all other systems have been reviewed and are negative or noncontributory. Scoring Rooney Fall Risk Score: 35 (03/07/23) Detailed Depression Screen Score: 20 (03/07/23) Total Depression Screen Score: 26 (03/07/23) Physical Exam Vitals & Measurements T: 36.8 ?C(Oral) HR: 105(Monitored) RR: 16 BP: 120/82 SpO2: 97% HT: 165 cm WT: 115.4 kg General: alert, no acute distress Skin: warm, dry Head: no trauma, normocephalic Neck: Trachea midline, no adenopathy, no tenderness Eye: normal conjunctiva, sclera clear ENMT: TM's clear, oral mucosa moist, no pharyngeal erythema or exudate Cardiovascular: regular rate and rhythm, normal peripheral perfusion Respiratory: Lungs CTA, respirations non labored Chest wall: no deformity. Gastrointestinal: soft, non distended, no tenderness, no guarding. Obese. Bowel sounds intact. Back: No tenderness, Normal ROM, Normal alignment. Extremities: no deformity, no trauma Neurological: oriented x 4, LOC appropriate for age, CN II-XII intact, motor strength equal & normal bilaterally, sensation equal & normal bilaterally, speech normal Psychiatric: cooperative, affect appropriate for age, normal judgement, normal psychiatric thoughts. Lab Results WBC: 6.8 E9/L (03/07/23 14:43:00) RBC: 4.5 E12/L (03/07/23 14:43:00) HGB: 12.6 gm/dL (03/07/23 14:43:00) Hct: 37.9 % (03/07/23 14:43:00) MCV: 84 fL (03/07/23 14:43:00) MCH: 28 pg (03/07/23 14:43:00) MCHC: 33.3 gm/dL (03/07/23 14:43:00) RDW: 14 % (03/07/23 14:43:00) Platelet: 442 E9/L (03/07/23 14:43:00) MPV: 7.9 fL (03/07/23 14:43:00) Neutro Auto: 60.3 % (03/07/23 14:43:00) Lymph Auto: 28.7 % (03/07/23 14:43:00) Becker Auto: 8.6 % (03/07/23 14:43:00) Eos Auto: 1.9 % (03/07/23 14:43:00) Basophil Auto: 0.5 % (03/07/23 14:43:00) Neutro Absolute: 4.1 E9/L (03/07/23 14:43:00) Lymph Absolute: 2 E9/L (03/07/23 14:43:00) Becker Absolute: 0.6 E9/L (03/07/23 14:43:00) Eos Absolute: 0.1 E9/L (03/07/23 14:43:00) Basophil Absolute: 0 E9/L (03/07/23 14:43:00) Glucose Lvl: 95 mg/dL (03/07/23 14:43:00) BUN: 9 mg/dL (03/07/23 14:43:00) Creatinine: 0.9 mg/dL (03/07/23 14:43:00) eGFR: 95 mL/min/1.73 m2 (03/07/23 14:43:00) BUN/Creat Ratio: 10 (03/07/23 14:43:00) Sodium Lvl: 137 mmol/L (03/07/23 14:43:00) Potassium Lvl: 3.6 mmol/L (03/07/23 14:43:00) Chloride: 103 mmol/L (03/07/23 14:43:00) CO2: 24 mmol/L (03/07/23 14:43:00) AGAP: 14 mEq/L (03/07/23 14:43:00) Calcium Lvl: 9.4 mg/dL (03/07/23 14:43:00) Alk Phos: 48 Int._Unit/L (03/07/23 14:43:00) ALT: 11 Int._Unit/L (03/07/23 14:43:00) AST: 16 Int._Unit/L (03/07/23 14:43:00) Total Protein: 7.5 gm/dL (03/07/23 14:43:00) Albumin Lvl: 3.1 gm/dL Low (03/07/23 14:43:00) Globulin: 4.4 gm/dL High (03/07/23 14:43:00) A/G Ratio: 0.7 Low (03/07/23 14:43:00) Bili Total: 0.5 mg/dL (03/07/23 14:43:00) Bili Direct: <0.1 (03/07/23 14:43:00) Bili I (more content not included)...[facility] HospitalComment on above:Result Comment: Electronically Signed By: DEBBIE MARCANO, Jennifer\.br\Date and Time Signed: 03/07/23 18:12 [id number] Hospital Discharge instructions Patient Education 11/13/2022 18:45:15 [...] emergency services (911 in the [place] The [facility] and human services helpline (211 in the [place] Go to your nearest emergency department. Call a suicide hotline to speak with a trained counselor. The following suicide hotlines are available in the [place]: ?3-580-872-TALK ( ). ?9-674-VGBSWFN ( ). ? . This is a hotline for Chinese speakers. ? . This is a hotline for TTY users. ?9-446-9-U-ELIZA ( ). This is a hotline for lesbian, schultz, bisexual, transgender, or questioning youth. ?For a list of hotlines in [place], visit www.suicide.org/hotlines/international/rvbtfu-hxzvdbp-ccrtvukk.html Contact a crisis center or a local [...] list of crisis centers in [place], visit: suicideprevention.hi How to help yourself feel better Promise [...] day, even if you do notfeel sociable. Sumt-rq-eumv conversation is best to help them understand [...] day can help you feel better. Take kanr-hbl-cpjwqfg and prescription medicines only as told by [...] National Suicide Prevention Lifeline: www.suicidepreventionlifeline.org Hopeline: www.hopeline.com [place] Foundation for Suicide Prevention: www.afsp.org The Eliza [...] away. Call emergency services, go to your [facility] or crisis center, [...] 2004 Document Revised: 11/10/2019 Document Reviewed: 03/02/2018 [employer]-Bot Patient Education 2020 [employer] Follow Up Care 11/13/2022 13:37:26 With:[facility] Address:Unknown When:11/16/2022 18:44:48 Comments:Return should you have worsening symptoms or feel unsafe. Call 911 or mental health counseling at any time. With:Claudia Ellington Address: [address] [place], [place] [id number] [facility] (1) When:11/16/2022 18:44:44 Comments:Call the office of [...] you develop any new or worsening symptoms. [facility] Evaluation + Plan noteExtracted from: Title:ED Note Author:Mono GONZALEZ Wilfredo PikeLaurita Date: Suicidal ideation (R45.851: Suicidal ideations) Orders: Acetaminophen Level Automated Diff Beta hCG Qual CBC w/ Auto Diff Communication Order Comprehensive Metabolic Panel Consult to Mental Health Drug Screen Urine ECG Pediatric Ethanol Level Extra Blue Tube Salicylate Level UA With Cult Reflex [facility]03-11-2023 Hospital Discharge instructions Patient Education 10/11/2022 [...] what your health care provider or the tester vibrator equipment recommends for you. What are the signs [...] Follow these instructions at home: Medicines Take ldyp-xgx-mutkkjq and prescription medicines only as told by your health care provider. Avoid any medicines that contain acetaminophen for as long as told by your health care provider. Todo this: ?Check all medicine labels for the presence of acetaminophen. Acetaminophen is found in many yihr-buo-unbkwwp and prescription medicines. These include medicines for [...] the hospital. Call: Your local emergency services (943 in the [place] Your local poison control [...] 05/04/2015 Document Revised: 02/18/2019 Document Reviewed: 02/18/2019 Q-Bot Patient Education 2020 [employer]. Follow Up Care 10/10/2022 21:52:59 With:[facility] Address:Unknown When:10/14/2022 Comments:Please follow-up with your primary care doctor in addition to your counselor in the next 1 to 2 days. Return to the ED for any new or worsening symptoms. With:Claudia Rakel Address: [address] [place] [address] Business (1) When:10/14/2022 [facility]03-10-2023 Evaluation + Plan noteExtracted from: Title:ED [...] Level PT & PTT Rapid COVID Antigen ([facility]) Salicylate Level U Beta Hcg Qual [facility]03-06-2023 Evaluation + Plan noteExtracted from: Title:ED Note Author:Han Bolaños DO Date :10/06/22 Syncope (R55: Syncope and co llapse) Orders: Automated Diff Basic Metabolic Panel Capillary Glucose POC CBC w/ Auto Diff ECG Pediatric ED Cardiac Monitoring Oxygen Saturation Oxygen Therapy PT & PTT Saline Lock Insert Troponin 0 Hr. U Beta Hcg Qual UA With Cult Reflex XR Chest Single View [facility]03-06-2023 Hospital Discharge instructions Patient Education 10/06/2022 [...] your urine pale yellow. General instructions Take lvyu-nak-rcfgbzd and prescription medicines only as told by [...] 07/20/2006 Document Revised: 07/02/2018 Document Reviewed: 06/28/2018 [employer]-Bot Patient Education 2020 [employer] Follow Up Care 10/05/2022 23:50:01 With:Claudia Rakel Address: [address] [place], [place] [address]- Business (1) When:Within 3 Day(s) [facility]12-07-2022 Hospital Discharge instructions Patient Education 07/08/2022 [...] until he or she recovers. Medicines Give bnvt-tft-izzcrru and prescription medicines only as told by [...] check with your local DMV (department of AGC) to find out about local driving laws. [...] 07/20/2006 Document Revised: 10/07/2019 Document Reviewed: 10/07/2019 [employer]-Bot Patient Education 2020 [employer]. Follow Up Care 07/08/2022 18:51:22 With:Claudia Ellington Address: [address] [place], [place] [id number] Business (1) When:07/11/2022 [facility]12-06-2022 Evaluation + Plan note Diagnostic Tests Pending * Rapid COVID Antigen ([facility]) 07/08/22 * Influenza A&B Ag 07/08/22 * Group A Strep by PCR 07/08/22 [facility]12-02-2022 Hospital Discharge instructions Patient Education 07/04/2022 [...] and regular daily exercise. Give your child sdqu-xgw-aivhptg and prescription medicines only as told by [...] to find more information Epilepsy Foundation: www.epilepsy.com [place] Epilepsy Society: www.aesnet.org Contact a health care [...] 10/29/2017 Document Revised: 11/10/2019 Document Reviewed: 10/29/2017 [employer]Bot Patient Education 2020 [employer] 07/04/2022 19:27:04 Non-Epileptic Seizures, Pediatric Non-Epileptic Seizures, [...] of having had a new experience before (frank russell). After a non-epileptic seizure, your child [...] she has a seizure. Give your child dabb-glf-viiqmxf and prescription medicines only as told by [...] 10/26/2017 Document Revised: 07/02/2018 Document Reviewed: 10/26/2017 [employer] Patient Education 2020 [employer]. Follow Up Care 07/04/2022 18:04:21 With:Joann Zamorano Address: [facility] [address] [place] [address]- Business (1) When:07/07/2022 19:23:00 With:Claudia Ellington Address: [address] [place] [address] [place] [address]- Business (1) When:07/07/2022 19:22:49 Comments:Follow-up with your primary care provider in 3 to 5 days. If symptoms worsen, do not improve, or new symptoms arise please report back to emergency department for further evaluation. [facility]11[facility]30[facility]20[facility] Hospital Discharge instructions Patient Education 07/02/2022 [...] of having had a new experience before (frank russell). After a non-epileptic seizure, your child [...] she has a seizure. Give your child ibap-qcm-qjnuqpb and prescription medicines only as told by [...] 10/26/2017 Document Revised: 07/02/2018 Document Reviewed: 10/26/2017 [employer]Bot Patient Education 2020 [employer]. 07/02/2022 16:03:45 Helping Your Child Manage Non-Epileptic [...] and regular daily exercise. Give your child elye-dpe-sahpufx and prescription medicines only as told by [...] to find more information Epilepsy Foundation: www.epilepsy.com [place] Epilepsy Society: www.aesnet.org Contact a health care [...] department or call: Your local emergency services (971 in the [place] A suicide crisis helpline, [...] 10/29/2017 Document Revised: 11/10/2019 Document Reviewed: 10/29/2017 [employer] Patient Education 2020 [employer]. Follow Up Care 07/02/2022 13:18:31 With:Joann Zamorano Address:Unknown When:07/05/2022 15:30:57 Comments:Follow-up with Dr. Zamorano for further evaluation of your seizure-like activity. With:Claudia Ellington Address: [address] [place] [address] Business (1) When:07/05/2022 15:30:49 Comments:Follow-up with your primary care provider in 3 to 5 days. If symptoms worsen, do not improve, or new symptoms arise please report back to emergency department for further evaluation. [facility]11-30-2022 Evaluation + Plan noteExtracted from: Title:ED Note Author:Alexandru Barajas PA-C te:07/02/22 Seizure-like activity (R56.9 : Unspecified convulsions) Orders: Automated Diff Basic Metabolic Panel CBC w/ Auto Diff [facility] note No data available for this section [facility] noteNo assessment information available [facility] Work Phone: Evaluation note* Diagnosis Onset Date Resolution Status Depression acute Suicidal ideations acute [facility] Work Phone: Evaluation note* Diagnosis Macromastia- Primary Hypertrophy of breast Thoracic spine pain Pain in thoracic spine [facility] No data available for this section [facility] Additional Instructions Regular Diet No Activity [facility] Work Phone: Progress note No data available for this section [facility] Summary Purpose Family History No Family [...] for this section No Family History Records Found Advance Directives No [...] section and content) DATE CREATED AUTHOR 09/20/2018 [facility] DATE CREATED AUTHOR AUTHOR'S ORGANIZ ATION 10/27/2019 [employer] DATE CREATED AUTHOR AUTHOR'S ORGANIZ ATION 11/08/2022 [facility] DATE CREATED AUTHOR AUTHOR'S ORGANIZ ATION 03/11/2023 [facility] DATE CREATED AUTHOR AUTHOR'S ORGANIZ ATION 07/02/2023 [facility] DATE CREATED AUTHOR AUTHOR'S ORGANIZ ATION 07/10/2023 [place] DATE CREATED AUTHOR AUTHOR'S ORGANIZ ATION 01/13/2024 [facility] DATE CREATED AUTHOR AUTHOR'S ORGANIZ ATION 01/15/2024 [facility] DATE CREATED AUTHOR AUTHOR'S ORGANIZ ATION 01/15/2024 [facility] DATE CREATED AUTHOR AUTHOR'S ORGANIZ ATION 01/16/2024 [facility] DATE CREATED AUTHOR AUTHOR'S ORGANIZ ATION 01/23/2024 [facility] Care Team (unrecognized sect ion and content) Team Status: Inactive Member Role Status Dates Claudia Ellington MD Primary Care Provider, Attending Ksenia tello Active Team Status: Active Member Role Status Dates Claudia Ellington MD Primary Care Provider Active Team Status: Inactive Member Role Status Dates Claudia Ellington MD Primary Care Provider Active John Monson MD Admit Provider, Attending Provider Active Entry Level Relationship Specialty Start Date End Date Claudia Ellington MD [address] [facility] [place] [address] PCP - General Family Medicine 06/10/23 Goals (unrecognized section and content) Goals may be documented in a n alternate section Reason for Visit (unrecogniz ed section and content) Reason Comments Breast Reduction Back pain and hard t o get up out of bed Specialty Diagnoses / Procedures Referred By Contac t Referred To Contact Plastic Surgery Diagnoses breast reduction Procedures NEW PATIENT - LYNNETTE Claudia Ellington MD [address] [place] [address] Valorie Hansen MD [address] [place] [id number] Referral ID Status Reason Start Date Expiration Date V isits Requested Visits Authorized [id number] Pending Review 06/30/2023 07/24/2024 1 1 FOR [...] BE BASED ON THE PRIMARY CLINICAL RECORDS. [facility]. provides no warranty or guarantee of the accuracy or completeness of information in this document.
--- NOTE | 2024-01-24 22:01 | ED_ITS ---
HPI - Abdominal Pain General Chief Complaint: Abdominal Pain Stated Complaint: ABDOMINAL PAIN Time Seen by Provider: 01/24/24 21:54 Source: patient Mode of arrival: walk-in History of Present Illness HPI narrative: states she was seen at [facility] 1.5 weeks ago with abdominal pain and diagnosed with pancreatitis. Was seen by GI 3 days ago and informed of workup to see if may be her gallbladder is the problem. States she was vomiting today and now presents here. No longer nauseated. No fever . Did have diarrhea but this resolved 2 days ago Related Data Home Medications ?Medication ?Instructions ?Recorded ?Confirmed cetirizine 10 mg tablet 10 mg PO DAILY 10/14/23 01/24/24 fluoxetine 40 mg capsule 40 mg PO DAILY 10/14/23 01/24/24 lurasidone 60 mg tablet 60 mg PO DAILY 10/14/23 01/24/24 melatonin 3 mg tablet 3 mg PO QPM 10/14/23 01/24/24 famotidine 10 mg tablet (Acid 10 mg PO BID PRN pain 01/24/24 01/24/24 Controller) hydrocodone 5 mg-acetaminophen 325 1 tab PO Q4H PRN pain 01/24/24 01/24/24 mg tablet lurasidone 40 mg tablet 40 mg PO DAILY 01/24/24 01/24/24 naproxen 500 mg tablet 500 mg PO BID PRN pain 01/24/24 01/24/24 norethindrone 1 mg-ethinyl 1 tab PO DAILY 01/24/24 01/24/24 estradiol 20 mcg (21)-iron 75 mg (7) tablet (Aurovela Fe 1-20 (28)) pantoprazole 40 mg tablet,delayed 40 mg PO DAILY 01/24/24 01/24/24 release Allergies Allergy/AdvReac Type Severity Reaction Status Date / Time No Known Drug Allergies Allergy Verified 10/14/23 20:33 Review of Systems ROS Status of ROS 10 or more systems reviewed and unremark able except as noted in history and below [facility] Social History Smoking status: Never smoker Exam Constitutional Vital Signs, click to edit/add: Last Vital Signs Temp 98.9 F 01/24/24 20:23 Pulse 98 H 01/24/24 20:23 Resp 18 01/24/24 20:23 BP 124/86 01/24/24 20:23 Pulse Ox 97 01/24/24 20:23 O2 Del Method Room Air 01/24/24 20:23 Common normals: no apparent distress, average body habitus, oriented x3, no limitations and healthy appearing HENMT Common normals: normocephalic and head/scalp atraumatic Respiratory Common normals: normal respiratory effort, no retractions, no use of accessory muscles and clear to auscultation bilaterally Cardio Common normals: regular rate, regular rhythm, S1 normal heart sound and S2 normal heart sound GI Common normals: Normal to inspection, nondistended, normoactive bowel sounds present and soft to palpation Other: mild nonspecific generalized tenderness Extremity Common normals: normal to inspection and full ROM Neuro Common normals: oriented x3, CN's II-XII intact bilaterally, moves all extremities, no focal motor deficits and no sensory deficits noted Psych Appearance: grossly normal Course Vital Signs Vital signs: Vital Signs Temperature 98.9 F 01/24/24 20:23 Pulse Rate 98 H 01/24/24 20:23 Respiratory Rate 18 01/24/24 20:23 Blood Pressure 124/86 01/24/24 20:23 Pulse Oximetry 97 01/24/24 20:23 Oxygen Delivery Method Room Air 01/24/24 20:23 Temperature 98.9 F 01/24/24 20:23 Pulse Rate 98 H 01/24/24 20:23 Respiratory Rate 18 01/24/24 20:23 Blood Pressure 124/86 01/24/24 20:23 Pulse Oximetry 97 01/24/24 20:23 Oxygen Delivery Method Room Air 01/24/24 20:23 MDM - Abdominal Pain MDM Narrative Medical decision making narrative: patient presents complaining of abdominal pain. Was seen at [facility] and diagnosed as pancreatitis. Her lipase was mildly elevated at [address] of her abdomen was neg. Was seen by GI 3 days ago and plans for workup discussed with the patient. presents now complaining of continued pain but states she had vomited at home but now is better and not even nauseated. has gen. nonspecific tenderness of her abdomen. labs reveal mildly elevated lipase of 110 and normal amylase. Patient discharged and advised to continue workup as set up via GI Lab Data Labs: Lab Results 01/24/24 01/24/24 Range/Units 22:14 23:45 WBC 8.0 (4.0-11.0) 10^3/uL RBC 4.22 (4.20-5.40) 10^6/uL Hgb 11.9 L (12.0-16.0) g/dL Hct 36.1 (36.0-48.0) % MCV 85.5 (81.0-99.0) fL MCH 28.2 (26.7-34.0) pg MCHC 33.0 (29.9-35.2) g/dL RDW 13.3 (11.0-15.0) % Plt Count 394 (150-450) 10^3/uL MPV 9.5 (9.5-13.5) fL Neut % (Auto) 50.5 (43.0-75.0) % Lymph % (Auto) 37.2 (20.5-60.0) % [place] % (Auto) 8.9 (1.7-12.0) % Eos % (Auto) 2.6 (0.9-7.0) % Baso % (Auto) 0.5 (0.2-2.0) % Neut # (Auto) 4.0 (1.4-6.5) 10^3/uL Lymph # (Auto) 3.0 (1.2-3.8) 10^3/uL [place] # (Auto) 0.7 (0.3-0.8) 10^3/uL Eos # (Auto) 0.2 (0.0-0.7) 10^3/uL Baso # (Auto) 0.0 (0.0-0.1) 10^3/uL Abs Immat Gran (auto) 0.02 (0.00-0.03) 10^3/uL Imm/Tot Granulo (auto) 0.3 (0.0-0.5) % Sodium 139 (136-145) mmol/L Potassium 3.8 (3.5-5.1) mmol/L Chloride 103 (98-107) mmol/L Carbon Dioxide 29.5 (21.0-32.0) mmol/L Anion Gap 10.3 BUN 10.0 (6.4-19.3) mg/dL Creatinine 0.86 (0.55-1.02) mg/dL Est GFR ( Amer) >60 (>=60) Est GFR (Non-Af Amer) >60 (>=60) BUN/Creatinine Ratio 11.6 Glucose 97 (74-106) mg/dL Calcium 9.0 (8.5-10.1) mg/dL Total Bilirubin 0.2 (0.2-1.0) mg/dL AST 12 L (15-37) U/L ALT 19 (14-59) U/L Alkaline Phosphatase 63 (46-116) U/L Total Protein 7.3 (6.4-8.2) g/dL Albumin 2.8 L (3.4-5.0) g/dL Globulin 4.5 g/dL Albumin/Globulin Ratio 0.6 Amylase 21 L (25-115) U/L Lipase 110.0 H (16.0-77.0) U/L Urine Color Yellow (YELLOW) Urine Clarity Clear (CLEAR) Urine pH 6.0 (5.0-9.0) Ur Specific B[place] >=1.030 A (1.005-1.025) Urine Protein Negative (NEG/TRACE) mg/dL Urine Glucose (UA) Negative (NEGATIVE) mg/dL Urine Ketones Negative (NEGATIVE) mg/dL Urine Occult Blood Trace-i (NEGATIVE) Urine Nitrite Negative (NEGATIVE) Urine Bilirubin Negative (NEGATIVE) Urine Urobilinogen 0.2 (0.2-1.0) EU/dL Ur Leukocyte Esterase Negative (NEGATIVE) Urine RBC 0-2 (0-2) #/HPF Urine WBC 2-5 A (NONE SEEN) #/HPF Ur Squamous Epith Cells Many A (NONE/RARE) #/LPF Urine Crystals None seen (None Seen) #/HPF Urine Bacteria None seen (NONE SEEN) #/HPF Urine Casts None seen (NONE SEEN) #/LPF Urine Mucus Small A (NONE SEEN) Ur Culture Indicated? No Discharge Plan Discharge Stand Alone Forms: Portal Instructions Chief Complaint: Abdominal Pain Clinical Impression: Abdominal pain Patient Disposition: Home, Self-Care Prescriptions / Home Meds: No Action fluoxetine 40 mg capsule 40 mg PO DAILY cetirizine 10 mg tablet 10 mg PO DAILY melatonin 3 mg tablet 3 mg PO QPM lurasidone 60 mg tablet 60 mg PO DAILY famotidine [Acid Controller] 10 mg tablet 10 mg PO BID PRN (Reason: pain) hydrocodone-acetaminophen 5-325 mg tablet 1 tab PO Q4H PRN (Reason: pain) lurasidone 40 mg tablet 40 mg PO DAILY naproxen 500 mg tablet 500 mg PO BID PRN (Reason: pain) norethindrone-e.estradiol-iron [Aurovela Fe 1-20 (28)] 1 mg-20 mcg (21)/75 mg (7) tablet 1 tab PO DAILY pantoprazole 40 mg tablet,delayed release (DR/EC) 40 mg PO DAILY Print Language: Romanian Instructions: Abdominal Pain (ED) Additional Instructions: follow up with Gastroenterology to continue workup Referrals: Fredi Mcleod MD [Primary Care Provider] - 1 week
[2024-01-24 22:21] LABS: Basophils Percent Auto 0.5 % (0.2-2.0); Eosinophils Absolute Auto 0.2 10^3/uL (0.0-0.7); Eosinophils Percent Auto 2.6 % (0.9-7.0); Hematocrit 36.1 % (36.0-48.0); Hemoglobin 11.9 g/dL (12.0-16.0); Immature Granulocytes Abs Auto 0.02 10^3/uL (0.00-0.03); Immature Granulocytes Pct Auto 0.3 % (0.0-0.5); Lymphocytes Percent Auto 37.2 % (20.5-60.0); Mean Corpuscular Hemoglobin 28.2 pg (26.7-34.0); Mean Corpuscular Volume 85.5 fL (81.0-99.0); Mean Platelet Volume 9.5 fL (9.5-13.5); Monocytes Absolute Auto 0.7 10^3/uL (0.3-0.8); Monocytes Percent Auto 8.9 % (1.7-12.0); Neutrophils Percent Auto 50.5 % (43.0-75.0); Platelet Count 394 10^3/uL (150-450); Red Blood Count 4.22 10^6/uL (4.20-5.40); Red Cell Distribution Width 13.3 % (11.0-15.0)
[2024-01-24 22:36] LABS: Alanine Aminotransferase 19 U/L (14-59); Albumin Globulin Ratio 0.6; Albumin Level 2.8 g/dL (3.4-5.0); Alkaline Phosphatase 63 U/L (46-116); Amylase 21 U/L (25-115); Anion Gap 10.3; Aspartate Amino Transferase 12 U/L (15-37); BUN Creatinine Ratio 11.6; Bilirubin Total 0.2 mg/dL (0.2-1.0); Carbon Dioxide 29.5 mmol/L (21.0-32.0); Chloride 103 mmol/L (98-107); Estimated GFR (African America >60 (>=60); Estimated GFR (Non-African Ame >60 (>=60); Globulin 4.5 g/dL; Glucose 97 mg/dL (74-106); Potassium 3.8 mmol/L (3.5-5.1); Sodium 139 mmol/L (136-145); Total Protein 7.3 g/dL (6.4-8.2)
[2024-01-24 23:51] LABS: Bilirubin Urine NEGATIVE (NEGATIVE); Blood Urine TRACE-I (NEGATIVE); Clarity Urine CLEAR (CLEAR); Color Urine YELLOW (YELLOW); Glucose Urine UA NEGATIVE (NEGATIVE); Ketones Urine NEGATIVE (NEGATIVE); Leukocyte Esterase Urine NEGATIVE (NEGATIVE); Nitrite Urine NEGATIVE (NEGATIVE); Protein Urine NEGATIVE (NEG/TRACE); Specific Gravity Urine >=1.030 (1.005-1.025); Urobilinogen Urine 0.2 EU/dL (0.2-1.0)
[2024-01-24 23:53] LABS: Urine Microscopic Indicated YES
[2024-01-25 00:01] LABS: Bacteria Urine NONE SEEN #/HPF (NONE SEEN); Cast Seen? NONE SEEN #/LPF (NONE SEEN); Crystals Seen? None Seen #/HPF (None Seen); Mucus Urine SMALL (NONE SEEN); RBC Urine 0-2 #/HPF (0-2); Squamous Epithelial Cell Urine MANY #/LPF (NONE/RARE); Urine Culture Indicated NO
== END 2024-01-25 00:46 | disposition home or self-care (01) ==
PROVIDERS: Emergency Provider Internal Medicine; PCP Family Medicine
DX: R10.9 Unspecified abdominal pain (principal)
CPT/HCPCS: 36415; 80053; 81001; 82150; 83690; 85025; 99283

== ENCOUNTER 2024-01-27 17:07 | Outpatient (OUT) | payer OTHER, SELFPAY ==
--- NOTE | 2024-01-27 17:15 | XR_ITS ---
The [address] [address] Patient Name: VAL SCHNEIDER MRN: [id number] date: 2005 Sex: F Assigned Patient Location: [facility] Current Patient Location: [facility] Accession/Order Number: [id number] Exam Date: 01/27/2024 17:15 Report Date: 01/27/2024 20:06 At the request of: CLAUDIA ELLINGTON Procedure: XR chest 2V EXAM: XR chest 2V HISTORY: Acute bronchitis J20.9 COMPARISON: 10/16/2023 TECHNIQUE: Upright PA and lateral chest x-ray FINDINGS: The heart is not enlarged and the vasculature is not distended. No acute infiltrate, effusion or pneumothorax is identified. The osseous structures are grossly intact. XR/XR chest 2V IMPRESSION: No acute infiltrate or evidence of cardiac decompensation. The overall appearance of the chest is essentially unchanged. Electronically authenticated by: ARLETTE OBANDO Date: 01/27/2024 20:06
--- OUTSIDE RECORDS SUMMARY | 2024-01-27 17:22 | XMS_ITS | CCD ---
Author Organization [facility] Care Team Providers Care Steel Fixer Name Role Phone Martina Bedolla Attending Unavailable [...] Care Unavailable Claudia Ellington Primary Care Physician [phone] MD Claudia Ellington Primary Care Provider [phone] MD Claudia Ellington Attending Provider [phone] CARLOSY ., DR TAYLOR Admitting Unavailable HOY [...] DR TAYLOR Attending Unavailable HOY ., DR TAYOLR Admitting Unavailable HOY ., DR TAYLOR Primary [...] DR TAYLOR Consulting Unavailable HOY ., DR TALYOR Primary Care Unavailable HOY ., DR TAYLOR [...] Unavailable MD Claudia Ellington Primary Care Provider [phone] MD John Monson Admit Provider MD John Monson Attending Provider Claudia Ellington MD Primary Care Provider [phone] VALORIE HANSEN Attending Unavailable RAKELCLAUDIA M Primary Care Unavailable CALUDIA ELLINGTON M Referring Unavailable Lawrence Reveles Attending Unavailable Ramiro, Melecio Consulting Unavailable Jennifer RETANA Admitting Unavailable Ramiro, MD Majano Consulting Unavailable Roslyn, Melecio Consulting Unavailable Roslyn, Melecio Consulting Unavailable Roslyn, Melecio Consulting Unavailable Roslyn, Melecio Consulting Unavailable Roslyn, Melecio Consulting Unavailable Roslyn, Melecio Consulting Unavailable Roslyn, Melecio Consulting Unavailable Radha Whipple Attending Unavailable Radha Whipple Attending Unavailable CHERYL SALCIDO Referring UnavailAkosua Moore Admitting Unavailable Akosua LR Attending Unavailable Ramiro, Melecio Consulting Unavailable Ramiro, MD Majano Consulting Unavailable Roslyn, Melecio Consulting Unavailable Roslyn, Melecio Consulting Unavailable Roslyn, Melecio Consulting Unavailable Roslyn, Melecio Consulting Unavailable Roslyn, Melecio Consulting Unavailable Roslyn, Melecio Consulting Unavailable Roslyn, Melecio Consulting Unavailable MISTY MACKEY Attending Unavailable [...] Farrell Attending Unavailable Zenon Hernandez Attending Unavailable Zenon Hernandez Referring Unavailable Radha Cantor Attending Unavailable Medications Current Medications Medication Drug [...] hours as needed for pain and pain [place] 325 mg-5 mg oral tablet 1 tab(s), [...] (1 source) Polyene Antifungal Start: 06-16-2023 nystatin [id number] UNIT/GM Powder powder Apply 1 Application topically. 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] Onset: 3 Episodic Other [...] (APAP/butalbital/caffeine 325 mg-50 mg-40 mg Tab) acetaminophen-hydrocodone ([place] 325 mg-5 mg oral tablet) cetirizine (cetirizine [...] Reason: Pancreatitis, No, No, Acute pancreatitis Normal [facility] Gastroenterology Office/Clin ic Noteon 01-22-2024 Gastroenterology Office/Clinic Note Chief Complaint follow up to er, abdominal pain, pancreatitis HPI Staff This is a 18 year old female who presents today for a follow up from [facility] on 01/12/2024 and 01/13/2024 abdominal pain, generalized abd pain [facility] ED: 01/13/2024 Chief Complaint seen here yesterday told she was just shy of pancreatitis. states abdominal pain worse. 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 Discharge Prescription List Prescriptions [place] 325 mg-5 mg oral tablet, 1 tab(s), Oral, q6hr, PRN Pepcid AC 10 mg oral tablet, 10 mg= 1 tab(s), Oral, BID, PRN [facility] ED: 01/12/2024 Chief Complaint abd pain all [...] 84.7 fL (01/13/24) Chloride: 105 mmol/L (01/13/24) [place] Absolute: 0.5 E9/L (01/13/24) CO2: 27 mmol/L (01/13/24) [place]ana Auto: 7.4 % (01/13/24) Creatinine: 0.8 mg/dL [...] soft, nontender (more content not included)... Normal [facility] Comment on above: Result Comment: Elec tronically Signed By: David MARCANO, Zenon Ratliff\.br\Date and Time Signed: 01/22/24 10:01 EDT ED Note-Physicianon 01-15-20 ED Note-Physician Basic Information Time Seen: Alexandre MELÉNDEZ, Liss Bear 01/12/2024 14:53 Chief Complaint abd pain all [...] CT imaging as it will not change management expert. Patient will be sent home with pain [...] Ordered: tram (more content not included)... Normal [facility] Comment on above: Result Comment: [...] 300 Contrast amount in ml's: 100 Normal [facility] ED Note-Physicianon 01-14-20 ED Note-Physician Basic Information Time Seen: Mirella Camilo PA-C 01/13/2024 18:36 Chief Complaint seen here yesterday told she was just shy of pancreatitis. states abdominal pain worse. 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 The patient is being discharged with [place] and Pepcid for pain management. Patient states [...] 6 hours as needed for pain, Pain, [facility]/pharmacy #[id number], 165.1, cm, 01/13/24 [...] Discharge Disposition home Discharge Prescription List Prescriptions [place] 325 mg-5 mg oral tablet, 1 tab(s), Oral, q6hr, PRN Pepcid AC 10 mg oral tablet, 10 mg= 1 tab(s), Oral, BID, PRN Follow- (more content not included)... Normal [facility] Comment on above: Result Comment: Elec tronically Signed By: Mirella Camilo PA-C\.br\Date and Time Signed: 01/13/24 21:12 EDT\.br\Electronically Co-Signed By: Mirella Camilo PA-C\.br\Date and Time Co-Signed: 01/14/24 00:04 EDT\.br\Electronically Co-Signed By: Migue Farrell M.D.\.br\Date and Time Co-Signed: 01/14/24 07:02 EDT BMPon 01-13-2024 Anion gap [Moles/Vol] 9 mmol/L Normal 6-16 [facility] Comment on above: Performed By: #### 2 [id number] #### [facility] [address] [place] [address] Calcium [Mass/Vol] 8.6 mg/dL Low 8.9-11.1 [facility] Comment on above: Performed By: #### 2 [id number] #### [facility] [address] [place] [address] Chloride [Moles/Vol] 105 mmol/L Normal 101-111 [facility] Comment on above: Performed By: #### 2 [id number] #### [facility] [address] [place] [address] CO2 [Moles/Vol] 27 mmol/L Normal 21-31 [facility] Comment on above: Performed By: #### 2 154025 #### [facility] [address] [place] [address] Creatinine [Mass/Vol] 0.8 mg/dL Normal 0.5-1.3 [facility] Comment on above: Performed By: #### 2 903662 #### [facility] [address] [place] [address] Glucose [Mass/Vol] 96 mg/dL Normal 55-199 [facility] Comment on above: Performed By: #### 2 273206 #### [facility] [address] [place] [address] Potassium [Moles/Vol] 3.6 mmol/L Normal 3.5-5.3 [facility] Comment on above: Performed By: #### 2 977064 #### [facility] [address] [place] [address] Sodium [Moles/Vol] 137 mmol/L Normal 135-145 [facility] Comment on above: Performed By: #### 2 145904 #### [facility] [address] [place] [address] Urea nitrogen [Mass/Vol] 9 mg/dL Normal 5-21 [facility] Comment on above: Performed By: #### 2 916634 #### [facility] [address] [place] [address] Urea nitrogen/Creatinine [Mass ratio] 11 No Units Normal 10-20 [facility] Comment on above: Performed By: #### 2 773859 #### [facility] [address] [place] [address] CBC w/ Auto Diffon 4 Basophils/100 WBC (Bld) 0.6 % Normal 0.0-2.0 [facility] Comment on above: Performed By: #### 2 895646 #### [facility] [address] [place] [address] Basophils/Leukocytes Auto (Bld) [Pure # fraction] 0.0 E9/L Normal 0.0-0.2 [facility] Comment on above: Performed By: #### 2 732299 #### [facility] [address] [place] [address] Eosinophils (Bld) [#/Vol] 0.2 E9/L Normal 0.0-0.5 [facility] Comment on above: Performed By: #### 2 757193 #### [facility] [address] [place] [address] Eosinophils/100 WBC (Bld) 2.6 % Normal 0.0-8.0 [facility] Comment on above: Performed By: #### 2 622140 #### [facility] [address] [place] [address] Erythrocyte distribution width (RBC) [Ratio] 13.8 % Normal 10.9-14.2 [facility] Comment on above: Performed By: #### 2 605297 #### [facility] [address] [place] [address] Hematocrit (Bld) [Volume fraction] 35.6 % Normal 34.0-46.0 [facility] Comment on above: Performed By: #### 2 974533 #### [facility] [address] [place] [address] Hemoglobin (Bld) [Mass/Vol] 11.8 g/dL Low 12.0-16.0 [facility] Comment on above: Performed By: #### 2 482428 #### [facility] [address] [place] [address] Lymphocytes (Bld) [#/Vol] 2.9 E9/L Normal 1.0-4.0 [facility] Comment on above: Performed By: #### 2 133327 #### [facility] [address] [place] [address] Lymphocytes/100 WBC (Bld) 40.4 % Normal 14.0-50.0 [facility] Comment on above: Performed By: #### 2 102131 #### [facility] [address] [place] [address] MCH (RBC) [Entitic mass] 28.0 pg Normal 27.0-34.0 [facility] Comment on above: Performed By: #### 2 456298 #### [facility] [address] [place] [address] MCHC (RBC) [Mass/Vol] 33.1 g/dL Normal 31.4-36.0 [facility] Comment on above: Performed By: #### 2 866881 #### [facility] [address] [place] [address] MCV (RBC) [Entitic vol] 84.7 fL Normal 80.0-100.0 [facility] Comment on above: Performed By: #### 2 139296 #### [facility] [address] [place] [address] Monocytes (Bld) [#/Vol] 0.5 E9/L Normal 0.2-1.0 [facility] Comment on above: Performed By: #### 2 394250 #### [facility] [address] [place] [address] Neutrophils (Bld) [#/Vol] 3.5 E9/L Normal 2.0-7.5 [facility] Comment on above: Performed By: #### 2 886206 #### [facility] [address] [place] [address] Neutrophils/100 WBC (Bld) 49.0 % Normal 36.0-75.0 [facility] Comment on above: Performed By: #### 2 136921 #### [facility] [address] [place] [address] Platelet mean volume (Bld) [Entitic vol] 8.1 fL Normal 6.4-10.8 [facility] Comment on above: Performed By: #### 2 750075 #### [facility] [address] [place] [address] Platelets (Bld) [#/Vol] 394.0 E9/L Normal 150.0-500.0 [facility] Comment on above: Performed By: #### 2 001230 #### [facility] [address] [place] [address] RBC (Bld) [#/Vol] 4.2 E12/L Low 4.3-5.9 [facility] Comment on above: Performed By: #### 2 634334 #### [facility] [address] [place] [address] WBC corrected for nucl RBC Auto (Bld) [#/Vol] 7.1 E9/L Normal 4.0-11.0 [facility] Comment on above: Performed By: #### 2 196437 #### [facility] [address] [place] [address] CHEMISTRYOrdered By: SYSTEM SYSTEM on 01-13-2024 Albumin [...] Consent for Treatmenton 01-01 Consent for Treatment [id number] Normal [facility] Discharge Instructionson Discharge Instructions [id number] Normal [facility] ED Clinical Summaryon 2023 ED Clinical Summary (Inserted Image. Nida ble to display) [address] [address] ED Clinical Summary Person Information Name: ROSE MARY SCHNEIDER [facility]ly[facility]enny Age: 18 Years : 2005 Sex: Female Language: Swiss PCP: Claudia Ellington MD Marital Status: Single Phone: [phone] Visit Id: Visit Reason: Abdominal pain; AB [...] 01/13/2024 21:12:34 01/13/2024 21:12:34 01/13/2024 21:12:34 ADDRESS: [address] [place] [phone] PHYS DOC NOTES: MEDICAL INFORMATION: Prescriptions Given: New Medications [facility]/pharmacy #[id number], [address], [place] [id number], [phone] acetaminophen-hydrocodone ([place] 325 mg-5 mg oral tablet) 1 Tablets [...] 0. 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 [place] [phone] Cannae (1) In 3 days DIAGNOSIS: Acute pancreatitis; Mild nausea Normal [facility] ED Patient Education Noteon 01-13-2024 ED [...] these instructions at home: Medicines ? Take vfus-pcv-kofincl and prescription medicines only as told by [...] provider. Document Revised: 06/10/2022 Document Reviewed: 06/10/2022 Elsevier Patient Education ? 2022 [employer] Normal [facility] ED Patient Summaryon 024 ED Patient Summary (Inserted Image. Nida ble to display) [address] [address] Patient Discharge Instructions Person Information Name: ROSE MARY SCHNEIDER Age: 18 Years Arrival Date: 01/13/2024 18:21:08 Discharge Diagnosis: Acute pancreatitis; Mild nausea Primary Care Physician: Claudia Ellington MD Provider Information Primary Provider: Ko Draper DO [employer] Specialist:Mirella Camilo PA-C The exam and treatment you received in the Emergency Department were for an urgent problem and are not intended as complete care. It is important that you follow up with a doctor, nurse practitioner, or physician?s assistant superintendent for curriculum for ongoing care. 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 [place] [phone] Cannae (1) In 3 days In the event that this physician does not participate in your insurance network, please consult with your insurance company to find a nearby participating provider. Patient Education Materials: Acute Pancreatitis, Gyns-yn-Qgge A MESSAGE TO ALL PATIENTS REGARDING OPIOIDS PRESCRIPTION OPIOIDS: WHAT YOU NEED TO KNOW Prescription opioids can be used to help relieve uobkwtin-gd-mojxdx pain and are often prescribed following a [...] and Drug Administration (www.fda.gov/Drugs/Resour cesForYou). ? Visit www.[employer] (more content not included)... Normal [facility] HEMATOLOGYOrdered By: SYSTEM SYSTEM on 01-13-2024 [...] 01-13-2024 Albumin [Mass/Vol] 3.4 g/dL Normal 3.3-5.0 [facility] Comment on above: Performed By: #### 2 [id number] #### [facility] [address] [place] [address] Albumin/Globulin (S) [Mass conc ratio] 1.0 Low 1.1-2.2 [facility] Comment on above: Performed By: #### 2 017116 #### [facility] [address] [place] [address] ALP [Catalytic activity/Vol] 45 Int._Unit/L Normal 21-98 [facility] Comment on above: Performed By: #### 2 329686 #### [facility] [address] [place] [address] ALT No additional P-5'-P [Catalytic activity/Vol] 11 Int._Unit/L Normal 6-46 [facility] Comment on above: Performed By: #### 2 938403 #### [facility] [address] [place] [address] AST [Catalytic activity/Vol] 12 Int._Unit/L Normal 5-43 [facility] Comment on above: Performed By: #### 2 930459 #### [facility] [address] [place] [address] Bilirubin [Mass/Vol] 0.3 mg/dL Normal 0.0-1.1 [facility] Comment on above: Performed By: #### 2 618577 #### [facility] [address] [place] [address] Bilirubin.direct [Mass/Vol] 0.0 mg/dL Normal 0.0-0.4 [facility] Comment on above: Performed By: #### 2 647691 #### [facility] [address] [place] [address] Bilirubin.indirect [Mass or moles/Vol] 0.3 mg/dL Normal 0.1-0.9 [facility] Comment on above: Performed By: #### 2 938921 #### [facility] [address] [place] [address] Globulin (S) [Mass/Vol] 3.3 g/dL Normal 1.4-4.0 [facility] Comment on above: Performed By: #### 2 028915 #### [facility] [address] [place] [address] Protein [Mass/Vol] 6.7 g/dL Normal 6.0-7.8 [facility] Comment on above: Performed By: #### 2 942404 #### [facility] [address] [place] [address] Lipase Levelon 01-13-2024 Lipase [Catalytic activity/Vol] 144 U/L High 13-58 [facility] Comment on above: Performed By: #### 2 963135 #### [facility] [address] [place] [address] RAD - Preliminary Cat Scan R eporton 01-13-2024 RAD - Preliminary Cat Scan Report [id number] Normal [facility] UA with Cult Rflxon 01-13-20 24 Bilirubin Ql (U) Negative Normal Negative [facility] Comment on above: Performed By: #### 4 [id number] #### [facility] [address] [place] [address] Clarity (U) Clear Normal Clear [facility] Comment on above: Performed By: #### 4 [id number] #### [facility] [address] [place] [address] Color (U) Colorless Abnormal Yellow [facility] Comment on above: Result Comment: Micr oscopic readings are only performed on those samples that meet specific criteria set forth by [facility]. Performed By: #### 4 [id number] #### [facility] [address] [place] [address] Epithelial cells.squamous Auto (Urine sed) [#/Area] 0-2 Invalid Interpretation Code [facility] Comment on above: Performed By: #### 4 [id number] #### [facility] [address] [place] [address] Glucose Ql (U) Negative Normal Negative [facility] Comment on above: Performed By: #### 4 [id number] #### [facility] [address] [place] [address] Hemoglobin Auto test strip (U) [Mass/Vol] 1+ mg/dL Abnormal Negative [facility] Comment on above: Performed By: #### 4 [id number] #### [facility] [address] [place] [address] Ketones Auto test strip Ql (U) Negative Normal Negative [facility] Comment on above: Performed By: #### 4 [id number] #### [facility] [address] [place] [address] Leukocyte esterase Auto test strip Ql (U) Negative Normal Negative [facility] Comment on above: Performed By: #### 4 [id number] #### [facility] [address] [place] [address] Mucus Auto Ql (U) Negative Normal Negative [facility] Comment on above: Performed By: #### 4 [id number] #### [facility] [address] [place] [address] Nitrite Auto test strip Ql (U) Negative Normal Negative [facility] Comment on above: Performed By: #### 4 [id number] #### [facility] [address] [place] [address] pH (U) 6.5 [pH] Invalid Interpretation Code 5.0-9.0 [facility] Comment on above: Performed By: #### 4 [id number] #### [facility] [address] [place] [address] Protein Ql (U) Negative Normal Negative [facility] Comment on above: Performed By: #### 4 [id number] #### [facility] [address] [place] [address] RBC Ql (U) 0-3 Normal 0-3 [facility] Comment on above: Performed By: #### 4 [id number] #### [facility] [address] [place] [id number] Specific gravity (U) [Rel density] 1.024 Invalid Interpretation Code 1.005-1.030 [facility] Comment on above: Performed By: #### 4 [id number] #### [facility] [address] [place] [id number] Urobilinogen (U) [Mass/Vol] Negative Normal Negative [facility] Comment on above: Performed By: #### 4 [id number] #### [facility] [address] [place] [address] WBC Auto (Urine sed) [#/Area] 0-5 Normal 0-5 [facility] Comment on above: Performed By: #### 4 [id number] #### [facility] [address] [place] [address] Type of Urine collection method Clean Catch Normal [facility] Comment on above: Performed By: #### 4 [id number] #### [facility] [address] [place], [place] [id number] URINALYSISOrdered By: SYSTEM SYSTEM on 01-13-2024 Bilirubin Ql (U) Negative Normal Negativemg/ dL [facility] UA Auto SS Clarity (U) Clear (01/13/24 7:41 PM) Normal Clear [facility] UA Auto SS Color (U) Colorless 1 *ABN* (01/13/24 7:41 PM) Invalid Interpretation Code Yellow [facility] UA Auto SS Comment on above: Interpretive Data: M icroscopic readings are only performed on those samples that meet specific criteria set forth by [facility]. Epithelial cells.squamous Auto (Urine sed) [#/Area] 0-2 graded/HPF Invalid Interpretation Code FT UA Auto SS Glucose Ql (U) Negative Normal Negativemg/ dL FT UA Auto SS Hemoglobin Auto test strip (U) [Mass/Vol] 1+ mg/dL Invalid Interpretation Code Negativemg/ dL [facility] UA Auto SS Ketones Auto test strip [...] - 9.0 FT UA Auto SS Protein Ql (U) Negative Normal Negativemg/ dL FT UA Auto SS RBC Ql (U) 0-3 graded/HPF Normal 0-3graded/H PF FT UA Auto SS Specific gravity (U) [Rel density] 1.024 *NA* (01/13/24 7:41 PM) Invalid Interpretation Code 1.005 - 1.030 FT UA Auto SS Urobilinogen (U) [Mass/Vol] Negative Normal Negativemg/ dL [facility] UA Auto SS WBC Auto (Urine sed) [#/Area] 0-5 graded/HPF Normal 0-5graded/H PF FT UA Auto SS URINALYSISOrdered By: iMrella Camilo on 01-13-2024 UA Spec Desc Clean Catch (01/13/24 7:41 PM) Normal [facility] UA Auto SS Work Phone: eGFRon 01-13-2024 eGFR 109 mL/min/1.73 m2 Normal >=59 [facility] Comment on above: Order Comment: Order added by Discern Expert. Performed By: #### 1 [id number] #### [facility] [address] [place] [address] CBC w/ Auto Diffon 4 Basophils/100 WBC (Bld) 0.4 % Normal 0.0-2.0 [facility] Comment on above: Performed By: #### 2 092762 #### [facility] [address] [place] [address] Basophils/Leukocytes Auto (Bld) [Pure # fraction] 0.0 E9/L Normal 0.0-0.2 [facility] Comment on above: Performed By: #### 2 789144 #### [facility] [address] [place] [address] Eosinophils (Bld) [#/Vol] 0.2 E9/L Normal 0.0-0.5 [facility] Comment on above: Performed By: #### 2 754121 #### [facility] [address] [place] [address] Eosinophils/100 WBC (Bld) 2.3 % Normal 0.0-8.0 [facility] Comment on above: Performed By: #### 2 [id number] #### [facility] [address] [place] [address] Erythrocyte distribution width (RBC) [Ratio] 13.9 % Normal 10.9-14.2 [facility] Comment on above: Performed By: #### 2 548844 #### [facility] [address] [place] [address] Hematocrit (Bld) [Volume fraction] 37.3 % Normal 34.0-46.0 [facility] Comment on above: Performed By: #### 2 [id number] #### [facility] [address] [place] [address] Hemoglobin (Bld) [Mass/Vol] 12.7 g/dL Normal 12.0-16.0 [facility] Comment on above: Performed By: #### 2 [id number] #### [facility] [address] [place] [address] Lymphocytes (Bld) [#/Vol] 2.3 E9/L Normal 1.0-4.0 [facility] Comment on above: Performed By: #### 2 [id number] #### [facility] [address] [place] [address] Lymphocytes/100 WBC (Bld) 33.8 % Normal 14.0-50.0 [facility] Comment on above: Performed By: #### 2 [id number] #### [facility] [address] [place] [address] MCH (RBC) [Entitic mass] 28.5 pg Normal 27.0-34.0 [facility] Comment on above: Performed By: #### 2 [id number] #### [facility] [address] [place] [address] MCHC (RBC) [Mass/Vol] 34.0 g/dL Normal 31.4-36.0 [facility] Comment on above: Performed By: #### 2 [id number] #### [facility] [address] [place] [address] MCV (RBC) [Entitic vol] 83.9 fL Normal 80.0-100.0 [facility] Comment on above: Performed By: #### 2 [id number] #### [facility] [address] [place] [address] Monocytes (Bld) [#/Vol] 0.6 E9/L Normal 0.2-1.0 [facility] Comment on above: Performed By: #### 2 [id number] #### [facility] [address] [place] [address] Neutrophils (Bld) [#/Vol] 3.8 E9/L Normal 2.0-7.5 [facility] Comment on above: Performed By: #### 2 [id number] #### [facility] [address] [place] [address] Neutrophils/100 WBC (Bld) 55.0 % Normal 36.0-75.0 [facility] Comment on above: Performed By: #### 2 535293 #### [facility] [address] [place] [address] Platelet 454.0 E9/L Normal 150.0-500.0 [facility] Comment on above: Performed By: #### 2 [id number] #### [facility] [address] [place] [address] Platelet mean volume (Bld) [Entitic vol] 7.5 fL Normal 6.4-10.8 [facility] Comment on above: Performed By: #### 2 051174 #### [facility] [address] [place] [address] RBC (Bld) [#/Vol] 4.4 E12/L Normal 4.3-5.9 [facility] Comment on above: Performed By: #### 2 295394 #### [facility] [address] [place] [address] WBC corrected for nucl RBC Auto (Bld) [#/Vol] 6.9 E9/L Normal 4.0-11.0 [facility] Comment on above: Performed By: #### 2 446574 #### [facility] [address] [place] [address] CHEMISTRYOrdered By: SYSTEM SYSTEM on 01-12-2024 Albumin [...] 01-12-2024 Albumin [Mass/Vol] 3.7 g/dL Normal 3.3-5.0 [facility] Comment on above: Performed By: #### 2 924578 #### [facility] [address] [place] [address] Albumin/Globulin (S) [Mass conc ratio] 1.0 Low 1.1-2.2 [facility] Comment on above: Performed By: #### 2 052349 #### [facility] [address] [place] [address] ALP [Catalytic activity/Vol] 49 Int._Unit/L Normal 21-98 [facility] Comment on above: Performed By: #### 2 484590 #### [facility] [address] [place] [address] ALT No additional P-5'-P [Catalytic activity/Vol] 12 Int._Unit/L Normal 6-46 [facility] Comment on above: Performed By: #### 2 472735 #### [facility] [address] [place] [address] Anion gap [Moles/Vol] 9 mmol/L Normal 6-16 [facility] Comment on above: Performed By: #### 2 628839 #### [facility] [address] [place] [address] AST [Catalytic activity/Vol] 12 Int._Unit/L Normal 5-43 [facility] Comment on above: Performed By: #### 2 378432 #### [facility] [address] [place] [address] Bilirubin [Mass/Vol] 0.3 mg/dL Normal 0.0-1.1 [facility] Comment on above: Performed By: #### 2 050580 #### [facility] [address] [place] [address] Calcium [Mass/Vol] 9.2 mg/dL Normal 8.9-11.1 [facility] Comment on above: Performed By: #### 2 911612 #### [facility] [address] [place] [address] Chloride [Moles/Vol] 105 mmol/L Normal 101-111 [facility] Comment on above: Performed By: #### 2 855961 #### [facility] [address] [place] [address] CO2 [Moles/Vol] 27 mmol/L Normal 21-31 [facility] Comment on above: Performed By: #### 2 701790 #### [facility] [address] [place] [address] Creatinine [Mass/Vol] 0.7 mg/dL Normal 0.5-1.3 [facility] Comment on above: Performed By: #### 2 042973 #### [facility] [address] [place] [address] Globulin (S) [Mass/Vol] 3.7 g/dL Normal 1.4-4.0 [facility] Comment on above: Performed By: #### 2 100891 #### [facility] [address] [place] [address] Glucose [Mass/Vol] 89 mg/dL Normal 55-199 [facility] Comment on above: Performed By: #### 2 818465 #### [facility] [address] [place] [address] Potassium [Moles/Vol] 3.7 mmol/L Normal 3.5-5.3 [facility] Comment on above: Performed By: #### 2 117793 #### [facility] [address] [place] [address] Protein [Mass/Vol] 7.4 g/dL Normal 6.0-7.8 [facility] Comment on above: Performed By: #### 2 397889 #### [facility] [address] [place] [address] Sodium [Moles/Vol] 137 mmol/L Normal 135-145 [facility] Comment on above: Performed By: #### 2 980721 #### [facility] [address] [place] [address] Urea nitrogen [Mass/Vol] 8 mg/dL Normal 5-21 [facility] Comment on above: Performed By: #### 2 739335 #### [facility] [address] [place] [address] Urea nitrogen/Creatinine [Mass ratio] 11 No Units Normal 10-20 [facility] Comment on above: Performed By: #### 2 836527 #### [facility] [address] [place] [address] Consent for Treatmenton 01-01 Consent for Treatment [id number] Normal [facility] Discharge Instructionson Discharge Instructions [id number] Normal [facility] ED Clinical Summaryon 2023 ED Clinical Summary (Inserted Image. Nida ble to display) [address] [address] ED Clinical Summary Person Information Name: ROSE MARY SCHNEIDER/Derek_Lenny Age: 18 Years : 2005 Sex: Female Language: Swiss PCP: Claudia Ellington MD Marital Status: Single Phone: [phone] Visit Id: Visit Reason: Abdominal pain; ABDOMINAL [...] 01/12/2024 17:22:14 01/12/2024 17:22:14 01/12/2024 17:22:14 ADDRESS: [address] [place] [id number] PHYS DOC NOTES: MEDICAL INFORMATION: Prescriptions Given: New Medications [facility]/pharmacy #[id number], [address], [place] [id number], [phone] ondansetron (Zofran ODT 4 mg Tab-Dis) 1 [...] INFORMATION: Instructions: Full Liquid Diet; Nausea, Adult, Xzpm-cx-Ektv; Abdominal Pain, Adult, Biki-wy-Fvac Follow up: With: Address: When: Rakel MARCANO, Claudia [facility] [facility] [place] [id number] In 3 days 01/15/2024 DIAGNOSIS: 1:Generalized abdominal pain; 2:Nausea; 3:Elevated lipase Normal [facility] ED Note-Nursingon 01-12-2024 ED Note-Nursing MARIE Morales at [facility] to discuss poc. Normal [facility] ED Patient Education Noteon 01-12-2024 ED [...] Water. Coffee and tea (caffeinated or decaffeinated). [place]. Liquid nutritional supplements. Soft drinks. Nondairy milks, such as almond, coconut, rice, or soy milk. Sweets and desserts Custard. Pudding. Flavored gelatin. Smooth ice cream (without nuts or candy pieces). Sherbet. Frozen ice pops. Swiss ice. Pudding pops. Seasonings and condiments Salt and pepper. Spices. Vinegar. Ketchup. Yellow mustard. Smooth sauces, such as Hollandaise, cheese sauce, or white sauce. Soy sauce. Syrup. Honey. Jelly (without fruit pieces). Other foods [place] powder. Cream soups. Strained soups. The items [...] This infor (more content not included)... Normal [facility] ED Patient Education Note Gastroenterology Nausea, [...] ? Low-calorie sports drinks. ? Eat bland, qqqu-fx-jieghy foods in small amounts as you are able, such as: ? Bananas. ? Applesauce. ? Rice. ? Low-fat (lean) meats. ? [place]. ? Crackers. ? Avoid drinking fluids that have a lot of sugar or caffeine in them. This includes energy drinks, sports drinks, and soda. ? Avoid alcohol. ? Avoid spicy or fatty foods. General instructions ? Take rbop-lnd-bsuycdr and prescription medicines only as told by [...] cannot use soap and water, use hand biller. ? Make sure that everyone in your [...] drink what your doctor tells you. Take agfc-kfb-eakmszc and prescription medicines only as told by [...] provider. Document Revised: 01/24/2022 Document Reviewed: 01/24/2022 [employer] Patient Education ? 2022 [employer] Abdominal Pain, Adult Many things can cause belly (abdominal) pain. Most times, belly pain is not dangerous. Many cases of belly pain can be watched and treated at home. Sometimes, though, belly pain is serious. Your doctor will try to find the cause of your belly pain. Follow these instructions at home: Medicines ? Take gbkx-mpx-ywbycqp and prescription medicines only as told by [...] doctor if: (more content not included)... Normal [facility] ED Patient Summaryon 024 ED Patient Summary (Inserted Image. Nida ble to display) [address] [address] Patient Discharge Instructions Person Information Name: ROSE MARY SCHNEIDER Age: 18 Years Arrival Date: 01/12/2024 14:42:50 Discharge Diagnosis: 1:Generalized abdominal pain; 2:Nausea; 3:Elevated lipase Primary Care Physician: Claudia Ellington MD Provider Information Primary Provider: Radha Whipple DO [employer] Specialist:Liss Schroeder PA-C The exam and treatment you received in the Emergency Department were for an urgent problem and are not intended as complete care. It is important that you follow up with a doctor, nurse practitioner, or physician?s assistant superintendent for curriculum for ongoing care. If your symptoms become [...] Instructions: With: Address: When: Claudia Ellington MD [facility] [place] [address] In 3 days 01/15/2024 In the event that this physician does not participate in your insurance network, please consult with your insurance company to find a nearby participating provider. Patient Education Materials: Full Liquid Diet; Nausea, Adult, Adsu-yk-Mhdg; Abdominal Pain, Adult, Azie-eo-Plgk A MESSAGE TO ALL PATIENTS REGARDING OPIOIDS PRESCRIPTION OPIOIDS: WHAT YOU NEED TO KNOW Prescription opioids can be used to help relieve rpfwhexj-oo-bitjtl pain and are often prescribed following a [...] care professiona (more content not included)... Normal [facility] HEMATOLOGYOrdered By: SYSTEM SYSTEM on 01-12-2024 [...] Lipase [Catalytic activity/Vol] 158 U/L High 13-58 [facility] Comment on above: Performed By: #### 2 150656 #### [facility] [address] [place] [address] Prescriptions/Work Noteson 0 01-12-2024 Prescriptions/Work Notes [id number] Normal [facility] SEROLOGYOrdered By: Alisha Smart on 01-12-2024 HCG.beta subunit (U) [Moles/Vol] Negative Normal [facility] Man Sero U BetaHcg Qualon 01-12-2024 HCG.beta subunit (U) [Moles/Vol] Negative Normal [facility] Comment on above: Performed By: #### 2 [id number] #### [facility] [address] [place] [address] UA with Cult Rflxon 01-12-20 24 Bilirubin Ql (U) Negative Normal Negative [facility] Comment on above: Performed By: #### 4 [id number] #### [facility] [address] [place] [address] Clarity (U) Clear Normal Clear [facility] Comment on above: Performed By: #### 4 [id number] #### [facility] [address] [place] [address] Color (U) Light-Yellow Normal Yellow [facility] Comment on above: Result Comment: Micr oscopic readings are only performed on those samples that meet specific criteria set forth by [facility]. Performed By: #### 4 [id number] #### [facility] [address] [place] [address] Epithelial cells.squamous Auto (Urine sed) [#/Area] 3-4 Invalid Interpretation Code [facility] Comment on above: Performed By: #### 4 [id number] #### [facility] [address] [place] [address] Glucose Ql (U) Negative Normal Negative [facility] Comment on above: Performed By: #### 4 [id number] #### [facility] [address] [place] [address] Hemoglobin Auto test strip (U) [Mass/Vol] 2+ mg/dL Abnormal Negative [facility] Comment on above: Performed By: #### 4 [id number] #### [facility] [address] [place] [address] Ketones Auto test strip Ql (U) Negative Normal Negative [facility] Comment on above: Performed By: #### 4 [id number] #### [facility] [address] [place] [address] Leukocyte esterase Auto test strip Ql (U) Negative Normal Negative [facility] Comment on above: Performed By: #### 4 [id number] #### [facility] [address] [place] [address] Mucus Auto Ql (U) Trace Normal Negative [facility] Comment on above: Performed By: #### 4 [id number] #### [facility] [address] [place] [address] Nitrite Auto test strip Ql (U) Negative Normal Negative [facility] Comment on above: Performed By: #### 4 [id number] #### [facility] [address] [place] [address] pH (U) 6.5 [pH] Invalid Interpretation Code 5.0-9.0 [facility] Comment on above: Performed By: #### 4 [id number] #### [facility] [address] [place] [address] Protein Ql (U) Negative Normal Negative [facility] Comment on above: Performed By: #### 4 [id number] #### [facility] [address] [place], [place] [address] RBC Ql (U) 0-3 Normal 0-3 [facility] Comment on above: Performed By: #### 4 [id number] #### [facility] [address] [place], [place] [address] Specific gravity (U) [Rel density] 1.021 Invalid Interpretation Code 1.005-1.030 [facility] Comment on above: Performed By: #### 4 [id number] #### [facility] [address] [place], [place] [address] Urobilinogen (U) [Mass/Vol] Negative Normal Negative [facility] Comment on above: Performed By: #### 4 [id number] #### [facility] [address] [place], [place] [address] WBC Auto (Urine sed) [#/Area] 0-5 Normal 0-5 [facility] Comment on above: Performed By: #### 4 [id number] #### [facility] [address] [place], [place] [address] Type of Urine collection method Random Urine Normal [facility] Comment on above: Performed By: #### 4 [id number] #### [facility] [address] [place] [address] URINALYSISOrdered By: SYSTEM SYSTEM on 01-12-2024 Bilirubin Ql (U) Negative Normal Negativemg/ dL FT UA Auto SS Clarity (U) Clear (01/12/24 4:20 PM) Normal Clear [facility] UA Auto SS Color (U) Light-Yellow 1 (01/12/24 4:20 PM) Normal Yellow [facility] UA Auto SS Comment on above: Interpretive Data: M icroscopic readings are only performed on those samples that meet specific criteria set forth by [facility]. Epithelial cells.squamous Auto (Urine sed) [#/Area] 3-4 graded/HPF Invalid Interpretation Code [facility] UA Auto SS Glucose Ql (U) Negative Normal Negativemg/ dL FT UA Auto SS Hemoglobin Auto test strip (U) [Mass/Vol] 2+ mg/dL Invalid Interpretation Code Negativemg/ dL FT UA Auto SS Ketones Auto test strip Ql (U) Negative Normal Negativemg/ dL [facility] UA Auto SS Leukocyte esterase Auto test [...] - 9.0 FT UA Auto SS Protein Ql (U) Negative Normal Negativemg/ dL FT UA Auto SS RBC Ql (U) 0-3 graded/HPF Normal 0-3graded/H PF [facility] UA Auto SS Specific gravity (U) [Rel density] 1.021 *NA* (01/12/24 4:20 PM) Invalid Interpretation Code 1.005 - 1.030 [facility] UA Auto SS Urobilinogen (U) [Mass/Vol] Negative Normal Negativemg/ dL FT UA Auto SS WBC Auto (Urine sed) [#/Area] 0-5 graded/HPF Normal 0-5graded/H PF [facility] UA Auto SS URINALYSISOrdered By: Aicha Schroeder on 01-12-2024 UA Spec Desc Random Urine (01/12/24 4:20 PM) Normal [facility] UA Auto SS Work Phone: eGFRon 01-12-2024 eGFR 128 mL/min/1.73 m2 Normal >=59 [facility] Comment on above: Order Comment: Order added by Discern Expert. Performed By: #### 1 [id number] #### [facility] [address] [place] [address] EEGon 05-23-2023 EEG This is a long-term continuous video electroencephalogram monitor performed on an 17-year-old female using standard 10/20 lead placement and a [employer] system. All data were obtained digitally and [...] stimulation. Melecio Rubio M.D. ca Dictated: 05/15/2023 [id number] Typed: 05/15/[address] [facility] Comment on above: Result Comment: Elec tronically Signed By: Ramiro MARCANO, Melecio\.br\Date and Time Signed: 05/23/23 08:20 EDT EEG This is a continuati on of the previous 24-hour recording. This is a continuous video electroencephalogram performed on an 17-year-old female using standard 10/20 lead placement and a [employer] system. All data were available for reformatting [...] her typical events. Clinical correlation is required. Missy Rogers Dictated: 05/15/2023 [id number] Typed: 05/15/[address] [facility] Comment on above: Result Comment: [...] 42.81 While BMI may be coded from social problems specialist or nursing documentation, the weight-related diagnosis must [...] Thank you!pratik [id number] From: Alicia Sidhu To: Pratik Kinsey RN; Sent: 05/18/2023 16:27:44 EDT Subject: RE: Coding Query Caller Name: ROSE MARY SCHNEIDER; Caller Number: H please code as morbid obesity Normal [facility] Discharge Instructionson Discharge Instructions [id number] Normal [facility] Inpatient Clinical Summaryon 05-13-2023 Inpatient Clinical Summary [address] [address] Clinical Summary Person Information: Name: ROSE MARY SCHNEIDER Age: 17 Years : 2005 Sex: Female PCP: Claudia Ellington MD Marital Status: Single Phone: [phone] Race: White Ethnicity: Non- or Language: Swiss Visit Id: Visit Reason: R56.9 Unspecified convulsions Speciality: Acuity: Enc Type: Inpatient Med Service: Neurology Clinic Arrival: 05/11/2023 07:26:33 Discharge: Dispo Type: Address: [address] [place] [address] DR BERTHA Todd [facility] [id number] Provider Notes: Diagnosis: 1:Seizures; 2:History of gastroesophageal [...] CNP Follow up: With: Address: When: Joann MACK [facility], [address] [place] [address] Business (1) Comments: Call for hospital followup appointment 2-3 weeks With: Address: When: Claudia Ellington [address] [facility], [place] [address] Business (1) Comments: Call for followup appointment Patient Education Information: Seizure, Adult Keppra Normal [facility] Inpatient Patient Summaryon 05-13-2023 Inpatient Patient [...] Pending Diagnostic Test Results None Pharmacy Information [facility] Discharge Instructions NO DRIVING until cleared by neurology New Follow Up Appointments after Discharge Follow Up with Joann Zamorano When: Comments: Call for hospital followup appointment 2-3 weeks Where: [facility] [address] [place] [address]- Business (1) Follow Up with Claudia Ellington When: Comments: Call for followup appointment Where: [address] [facility] [place] [address] [place] [address]- Business (1) Medications What How Much When Instructions Next Dose Changed levetiracetam (Keppra 500 mg Tab) 1 Tablets By Mouth 2 times a day Pickup at [facility]/pharmacy #[id number] 10 9pm Unchanged APAP/ butalbital/ caffeine (APAP/ butalbital/ [...] Pharmacy Information [facility]/pharmacy #[id number]: [address] [place], [place] [id number] [phone] Test Results CBC BMP WBC: 5.6 E9/L [...] ? Metabolic (more content not included)... Normal [facility] Inpatient Patient Summary [place] [id number] Patient Discharge Instructions PERSON INFORMATION Name: ROSE [...] Follow up: With: Address: When: Joann Zamorano [facility], [address] [place] [address] Business (1) Comments: Call for hospital followup appointment 2-3 weeks With: Address: When: Claudia Redmondem [address] [place] [address], [place] [address] Business (1) Comments: Call for [...] Taking That Have Changed [facility]/pharmacy #[id number], [address] [place] [id number], [phone] START: levetiracetam (Keppra 500 mg Tab) 1 [...] Tablets By Mouth every day. ethinyl estradiol-norethindrone (08/22 oral tablet) 28 EA, [...] 3 mg-10 (more content not included)... Normal [facility] Interdisciplinary Note - Binu e Manageron 05-13-2023 Interdisciplinary Note - Amphibious Operations Officer CRM entered the room to discuss dc planning. Pt is sleeping. Neuro following. ANt dc TBD. CRM to follow. [facility] Comment on above: Result Comment: Elec tronically Signed By: Peyton Mccarty.hemant\Date and Time Signed: 05/13/23 09:22 EDT Monitor Recordon 05-13-2023 Monitor Record [id number] Normal [facility] Monitor Record [id number]#[id number] [facility] Progress Note-Physicianon Progress Note-Physician Basic Information The [...] sensation in all 4 extremities. Cerebellar exam: Wvuwfx-cn-klvq reveals no ataxia. Gait is normal. [4] [3] Lab Results Glucose Cap: 84 mg/dL (05/12/23 21:54:00) POC Device SN: [id number] (05/12/23 21:54:00) POC User ID: [id number] (05/12/23 21:54:00) POC Username: CARI NERY (05/12/23 21:54:00) Problem List/Past Medical History Ongoing [...] PRN ceti (more content not included)... Normal [facility] Comment on above: Result Comment: [...] 05:50:00) Lymph Auto: 41.3 % (05/12/23 05:50:00) [place] Auto: 8.8 % (05/12/23 05:50:00) Eos Auto: 3.1 % (05/12/23 05:50:00) Basophil Auto: 0.4 % (05/12/23 05:50:00) Neutro Absolute: 2.6 E9/L (05/12/23 05:50:00) Lymph Absolute: 2.3 E9/L (05/12/23 05:50:00) [place] Absolute: 0.5 E9/L (05/12/23 05:50:00) Eos Absolute: [...] (05/12/23 05:50:0 (more content not included)... Normal [facility] Comment on above: Result Comment: Elec tronically Signed By: Alicia Sidhu\.br\Date and Time Signed: 05/12/23 15:34 EDT\.br\Electronically Co-Signed By: Akosua LR MD\.br\Date and Time Co-Signed: 05/13/23 07:06 EDT Auto Diffon 05-12-2023 Basophils/100 WBC (Bld) 0.4 % Normal 0.0-2.0 [facility] Comment on above: Order Comment: Order Added by Discern Expert. Performed By: #### 2 [id number], [id number] #### [facility] [address] [place] [address] Basophils/Leukocytes Auto (Bld) [Pure # fraction] 0.0 E9/L Normal 0.0-0.2 [facility] Comment on above: Order Comment: Order Added by Discern Expert. Performed By: #### 2 [id number], [id number] #### [facility] [address] [place] [address] Eosinophils/100 WBC (Bld) 3.1 % Normal 0.0-8.0 [facility] Comment on above: Order Comment: Order Added by Discern Expert. Performed By: #### 2 [id number], [id number] #### [facility] [address] [place] [address] Eosinophils/Leukocytes Auto (Bld) [Pure # fraction] 0.2 E9/L Normal 0.0-0.5 [facility] Comment on above: Order Comment: Order Added by Discern Expert. Performed By: #### 2 [id number], [id number] #### [facility] [address] [place] [address] 30454 Lymphocytes/100 WBC (Bld) 41.3 % Normal 14.0-50.0 [facility] Comment on above: Order Comment: Order Added by Discern Expert. Performed By: #### 2 938929, [id number] #### [facility] [address] [place] [address] 62060 Lymphocytes/Leukocytes Auto (Bld) [Pure # fraction] 2.3 E9/L Normal 1.0-4.0 [facility] Comment on above: Order Comment: Order Added by Discern Expert. Performed By: #### 2 153954, [id number] #### [facility] [address] [place] [address] 03830 Monocytes/100 WBC (Bld) 8.8 % Normal 4.0-14.0 [facility] Comment on above: Order Comment: Order Added by Samantha Expert. Performed By: #### 2 560979, [id number] #### [facility] [address] [place] [address] 26289 Monocytes/Leukocytes Auto (Bld) [Pure # fraction] 0.5 E9/L Normal 0.2-1.0 [facility] Comment on above: Order Comment: Order Added by Discern Expert. Performed By: #### 2 141429, [id number] #### [facility] [address] [place] [address] 54766 Neutrophils/100 WBC (Bld) 46.4 % Normal 36.0-75.0 [facility] Comment on above: Order Comment: Order Added by Discern Expert. Performed By: #### 2 685756, [id number] #### [facility] [address] [place] [address] Neutrophils/Leukocytes Auto (Bld) [Pure # fraction] 2.6 E9/L Normal 2.0-7.5 [facility] Comment on above: Order Comment: Order Added by Discern Expert. Performed By: #### 2 617501, [id number] #### [facility] [address] [place] [address] CBC w/ Auto Diffon 3 Erythrocyte distribution width (RBC) [Ratio] 13.8 % Normal 10.9-14.2 [facility] Comment on above: Performed By: #### 2 658188, [id number] #### [facility] [address] [place] [address] Hematocrit (Bld) [Volume fraction] 38.5 % Normal 34.0-46.0 [facility] Comment on above: Performed By: #### 2 053869, [id number] #### [facility] [address] [place] [address] Hemoglobin (Bld) [Mass/Vol] 13.2 g/dL Normal 12.0-16.0 [facility] Comment on above: Performed By: #### 2 010439, [id number] #### [facility] [address] [place] [address] MCH (RBC) [Entitic mass] 29.2 pg Normal 27.0-34.0 [facility] Comment on above: Performed By: #### 2 343320, 5328009 #### [facility] [address] [place] [address] MCHC (RBC) [Mass/Vol] 34.3 g/dL Normal 31.4-36.0 [facility] Comment on above: Performed By: #### 2 538938, [id number] #### [facility] [address] [place] [address] MCV (RBC) [Entitic vol] 85.2 fL Normal 80.0-100.0 [facility] Comment on above: Performed By: #### 2 172614, 1022659 #### [facility] [address] [place] [address] Platelet mean volume (Bld) [Entitic vol] 8.2 fL Normal 6.4-10.8 [facility] Comment on above: Performed By: #### 2 078207, [id number] #### [facility] [address] [place] [address] Platelets (Bld) [#/Vol] 332.0 E9/L Normal 150.0-500.0 [facility] Comment on above: Performed By: #### 2 175993, 1605915 #### [facility] [address] [place] [address] RBC (Bld) [#/Vol] 4.5 E12/L Normal 4.3-5.9 [facility] Comment on above: Performed By: #### 2 971184, [id number] #### [facility] [address] [place] [address] 98700 WBC corrected for nucl RBC Auto (Bld) [#/Vol] 5.6 E9/L Normal 4.0-11.0 [facility] Comment on above: Performed By: #### 2 980907, [id number] #### [facility] [address] [place] [address] CHEMISTRYOrdered By: Lab ROP User on 05-12-2023 Glucose [Mass/Vol] 84 mg/dL Normal 55 - 99 mg/dL [facility] POC Subsection Comment on above: Result Comment: Drea kaur RN/ POC Device SN [id number] Invalid Interpretation Code [facility] POC Subsection POC Username NERY ALCALA Invalid Interpretation Code [facility] POC Subsection Sodium [Moles/Vol] 912882164 mmol/L Invalid Interpretation Code [facility] POC Subsection CHEMISTRYOrdered By: SYSTEM SYSTEM on 05-12-2023 Albumin [Mass/Vol] 3.0 g/dL Low 3.3 - 5.0 gm/dL [facility] Remisol Albumin/Globulin [Mass ratio] 0.7 {ratio} Low [...] 95 mL/min/1.73 m2 Normal >=59mL/min/ 1.73 m2 [facility] Chem S Comment on above: Interpretive Data: C hronic kidney disease could be indicated at eGFR's of less than 60 mL/min/1.73m2. Kidney failure is indicated at less than 15 mL/min/1.73m2. Globulin (S) [Mass/Vol] 4.4 g/dL High 1.4 - 4.0 gm/dL [facility] Remisol Glucose [Mass/Vol] 93 mg/dL Normal 55 - 199 mg/dL [facility] Remisol Comment on above: Interpretive Data: I f this glucose result represents a fasting glucose, interpretation should refer to the following reference range: 55-99 mg/dL Magnesium [Mass/Vol] 2.0 mg/dL Normal 1.3 - 2 .4 mg/dL [facility] Remisol Potassium [Moles/Vol] 3.7 mmol/L Normal 3.5 - 5.3 mmol/L [facility] Protein [Mass/Vol] 7.4 g/dL Normal 6.0 - 7.8 gm/dL [facility] Remisol Sodium [Moles/Vol] 136 mmol/L Normal 135 - 145 mmol/L [facility] Remisol Urea nitrogen [Mass/Vol] 12 mg/dL Normal 5 - 21 mg/dL [facility] Remisol Urea nitrogen/Creatinine [Mass ratio] 13 mg/mg Normal 10 - 20 [facility] Remisol CMPon 05-12-2023 Albumin [Mass/Vol] 3.0 g/dL Low 3.3-5.0 [facility] Comment on above: Performed By: #### 2 [id number] #### [facility] [address] [place] [address] Albumin/Globulin (S) [Mass conc ratio] 0.7 Low 1.1-2.2 [facility] Comment on above: Performed By: #### 2 298668 #### [facility] [address] [place] [address] ALP [Catalytic activity/Vol] 50 Int._Unit/L Normal 21-98 [facility] Comment on above: Performed By: #### 2 426647 #### [facility] [address] [place] [address] ALT No additional P-5'-P [Catalytic activity/Vol] 13 Int._Unit/L Normal 6-46 [facility] Comment on above: Performed By: #### 2 492058 #### [facility] [address] [place] [address] Anion gap [Moles/Vol] 8 mmol/L Normal 6-16 [facility] Comment on above: Performed By: #### 2 532015 #### [facility] [address] [place] [address] AST [Catalytic activity/Vol] 16 Int._Unit/L Normal 5-43 [facility] Comment on above: Performed By: #### 2 927453 #### [facility] [address] [place] [address] Bilirubin [Mass/Vol] 0.4 mg/dL Normal 0.0-1.1 [facility] Comment on above: Performed By: #### 2 451129 #### [facility] [address] [place] [address] Calcium [Mass/Vol] 9.0 mg/dL Normal 8.9-11.1 [facility] Comment on above: Performed By: #### 2 600912 #### [facility] [address] [place] [address] Chloride [Moles/Vol] 108 mmol/L Normal 101-111 [facility] Comment on above: Performed By: #### 2 069238 #### [facility] [address] [place] [address] CO2 [Moles/Vol] 24 mmol/L Normal 21-31 [facility] Comment on above: Performed By: #### 2 748905 #### [facility] [address] [place] [address] Creatinine [Mass/Vol] 0.9 mg/dL Normal 0.5-1.3 [facility] Comment on above: Performed By: #### 2 387469 #### [facility] [address] [place] [address] Globulin (S) [Mass/Vol] 4.4 g/dL High 1.4-4.0 [facility] Comment on above: Performed By: #### 2 303924 ####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 [Moles/Vol] 4.0 mmol/L Normal 3.5-5.3 [facility] Comment on above: Order Comment: per tejas Kauffman RN Alisha wants us to wait till 0800 to draw labs [id number] 03/09/2023 06:41:32 EDT Performed By: #### 2 867053, 5329061 #### [facility] [address] [place] [address] Protein [Mass/Vol] 7.1 g/dL Normal 6.0-7.8 [facility] Comment on above: Order Comment: per tejas Kauffman RN Alisha wants us to wait till 0800 to draw labs [id number] 03/09/2023 06:41:32 EDT Performed By: #### 2 161386, 0171121 #### [facility] [address] [place] [address] Sodium [Moles/Vol] 137 mmol/L Normal 135-145 [facility] Comment on above: Order Comment: per tejas Brito wants us to wait till 0800 to draw labs [id number] 03/09/2023 06:41:32 EDT Performed By: #### 2 745657, 5846513 #### [facility] [address] [place] [address] Urea nitrogen [Mass/Vol] 11 mg/dL Normal 5-21 [facility] Comment on above: Order Comment: per tejas Brito wants us to wait till 0800 to draw labs [id number] 03/09/2023 06:41:32 EDT Performed By: #### 2 654555, 7576603 #### [facility] [address] [place] [address] Urea nitrogen/Creatinine [Mass ratio] 16 No Units Normal 10-20 [facility] Comment on above: Order Comment: per tejas Brito wants us to wait till 0800 to draw labs [id number] 03/09/2023 06:41:32 EDT Performed By: #### 2 223183, 2591838 #### [facility] [address] [place] [address] COAGULATIONOrdered By: Chepe Ragland on 03-09-2023 INR Coag (PPP) [Relative time] 1.0 {INR} Invalid Interpretation Code [facility] Auto Coag PT Coag (PPP) [Time] 10.6 s Normal 9.4 - 1 2.5 second(s) [facility] Auto Coag ECG Pediatricon 03-09-2023 ECG Pediatric The following ED Rev iew was created for ROSE MARY SCHNEIDER: SINUS TACHYCARDIA POSSIBLE LEFT ATRIAL ENLARGEMENT [-0.1mV P WAVE IN V1/V2] NONSPECIFIC T-WAVE ABNORMALITY ABNORMAL RHYTHM ECG Preliminary By: Justice Browne MD 03/07/2023 15:05:51 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 Interdisciplinary Note - Binu e Manageron 03-09-2023 Interdisciplinary Note - Amphibious Operations Officer Pt is in bed sleeping. According to juwan, pt has not been having SI. Dr Reveles will assess for need of Chassell slip and MHP. Nursing will have to call MHP if needed. Pending SW and Neurology. ANt dc TBD. CRM to follow. [facility] Comment on above: Result Comment: Elec tronically Signed By: Peyton Mccarty.br\Date and Time Signed: 03/09/23 09:25 EDT Interdisciplinary Note - Mayra singon 03-09-2023 Interdisciplinary Note - Nursing 1405 spoke with p hotline. they requested chart be faxed to them. 1420 chart and pink slip faxed to p. [phone] original fax did not go through. refaxed at this time. 1500 fax did not go trough. re attempted. Normal [facility] Interdisciplinary Note - Soc ial Workeron 03-09-2023 Interdisciplinary Note - Pediatric Associate Consult received by SW regarding an intentional acetaminophen overdose / SI . Awaiting MHP consult. SW will follow [facility]'s plan moving forward. [facility] Monitor Recordon 03-09-2023 Monitor Record [id number]#1.00CD:[address] [facility] Monitor Record [id number]#[id number]:[address] [facility] Monitor Record [id number]#[id number]:[address] [facility] PTon 03-09-2023 INR Coag (PPP) [Relative time] 1.0 {INR} Invalid Interpretation Code [facility] Comment on above: Result Comment: INR results are specifically intended to assess patients stabilized on long-term Anticoagulation therapy suggested INR?s ?Less Intensive Anticoagulation? 2.0 ? 3.0 Conventional Range 3.0 ? 4.5 Performed By: #### 2 219020, 1834139 #### [facility] [address] [place] [address] PT Coag (PPP) [Time] 10.6 second(s) Normal 9.4-12.5 [facility] Comment on above: Result Comment: 15 [...] the same coagulation reagent and instrumentation as [facility]. Currently there are no coagulation studies available worldwide for children to 14 days, and no normal ranges. Performed By: #### 2 628475, 6794062 #### [facility] [address] [place] [address] Progress Note-Nurseon 2022 Progress Note-Nurse Dr. Eamon marie via [employer]. Patient has PT and CMP 8/7 at 0600. Physician notified of current lab orders and no further orders received at this time. Normal [facility] Progress Note-Nurse Patient is afebrile, VS as documented, and patient in no distress. She denies pain, gi upset, and distress. Safety maintained and supervision continued. Normal [facility] Progress Note-Physicianon Progress Note-Physician Subjective Doing [...] (E66.9: Obesi (more content not included)... Normal [facility] Comment on above: Result Comment: Elec tronically Signed By: Lawrence Reveles DO\.br\Date and Time Signed: 03/09/23 14:30 EDT eGFRon 03-09-2023 GFR/1.73 sq M.predicted among non-blacks MDRD (S/P/Bld) [Vol rate/Area] 128 mL/min/1.73 m2 Normal >=59 [facility] Comment on above: Order Comment: Order added by Discern Expert. Result Comment: Bulk Sealer marleny kidney disease could be indicated at eGFR's of less than 60 mL/min/1.73m2. Kidney failure is indicated at less than 15 mL/min/1.73m2. Performed By: #### 2 023598, 1261146 #### [facility] [address] [place] [address] Acetamnphn Lvlon 03-08-2023 Acetaminophen [Mass/Vol] ug/mL Low 15-30 [facility] Comment on above: Performed By: #### 2 228759, 1999746 #### [facility] [address] [place] [address] Acetaminophen [Mass/Vol] 10 microgram/mL Low 15-30 [facility] Comment on above: Performed By: #### 2 886178, 8680815 #### [facility] [address] [place] [address] BMPon 03-08-2023 Anion gap [Moles/Vol] 13 mmol/L Normal 6-16 [facility] Comment on above: Performed By: #### 2 514974, 7544789, 6117674, 04554747, 57219171 ####[facility] [address] [place] [address] Calcium [Mass/Vol] 9.1 mg/dL Normal 8.9-11.1 [facility] Comment on above: Performed By: #### 2 513767, 2506319, 1915343, 34559043, 52486351 ####[facility] [address] [place] [address] Chloride [Moles/Vol] 105 mmol/L Normal 101-111 [facility] Comment on above: Performed By: #### 2 674285, 3786412, 8101271, 88599772, 46351431 ####[facility] [address] [place] [address] CO2 [Moles/Vol] 23 mmol/L Normal 21-31 [facility] Comment on above: Performed By: #### 2 554118, 0583912, 8513680, 42445305, 96891643 ####[facility] [address] [place] [address] Creatinine [Mass/Vol] 0.8 mg/dL Normal 0.5-1.3 [facility] Comment on above: Performed By: #### 2 149037, 8821905, 4943664, 91178144, 94731091 ####[facility] [address] [place] [address] Glucose [Mass/Vol] 103 mg/dL Normal 55-199 [facility] Comment on above: Result Comment: If t his glucose result represents a fasting glucose, interpretation should refer to the following reference range: 55-99 mg/dL Performed By: #### 2 251528, 3135470, 0307067, 83137387, 52754316 ####[facility] [address] [place] [address] Potassium [Moles/Vol] 3.3 mmol/L Low 3.5-5.3 [facility] Comment on above: Performed By: #### 2 397997, 2778657, 2479830, 43886125, 05232723 ####[facility] [address] [place] [address] Sodium [Moles/Vol] 138 mmol/L Normal 135-145 [facility] Comment on above: Performed By: #### 2 403262, 2569115, 0497095, 78967814, 20699723 ####[facility] [address] [place] [address] Urea nitrogen [Mass/Vol] 7 mg/dL Normal 5-21 [facility] Comment on above: Performed By: #### 2 537905, 7096338, 0198731, 47491769, 79706590 ####[facility] [address] [place] [address] Urea nitrogen/Creatinine [Mass ratio] 9 No Units Low 10-20 [facility] Comment on above: Performed By: #### 2 062026, 0692158, 7007525, 03783729, 59305720 ####[facility] [address] [place] [address] CHEMISTRYOrdered By: SYSTEM SYSTEM on 03-08-2023 Albumin [Mass/Vol] 3.0 g/dL Low 3.3 - 5.0 gm/dL [facility] Remisol Albumin/Globulin [Mass ratio] 0.7 {ratio} Low [...] [Relative time] 1.1 {INR} Invalid Interpretation Code [facility] Auto Coag PT Coag (PPP) [Time] 12.1 s Normal 9.4 - 1 2.5 second(s) [facility] Auto Coag GetWell Education Videoon GetWell Education Video Avoiding Infections in the Hospital Yes Patient Normal [facility] Hep Func Panelon 03-08-2023 Bilirubin.indirect [Mass or moles/Vol] UTC Abnormal 0.1-0.9 [facility] Comment on above: Result Comment: Resu lt verified by Discern Rule. Performed result UTC (Unable to Calculate) was sent as an Alpha code due the inability to calculate a valid numeric value. Performed By: #### 2 535255 #### [facility] [address] [place] [address] Albumin [Mass/Vol] 3.0 g/dL Low 3.3-5.0 [facility] Comment on above: Performed By: #### 2 667745 #### [facility] [address] [place] [address] Albumin/Globulin (S) [Mass conc ratio] 0.7 Low 1.1-2.2 [facility] Comment on above: Performed By: #### 2 726028 #### [facility] [address] [place] [address] ALP [Catalytic activity/Vol] 46 Int._Unit/L Normal 21-98 [facility] Comment on above: Performed By: #### 2 472111 #### [facility] [address] [place] [address] ALT No additional P-5'-P [Catalytic activity/Vol] 14 Int._Unit/L Normal 6-46 [facility] Comment on above: Performed By: #### 2 258630 #### [facility] [address] [place] [address] AST [Catalytic activity/Vol] 17 Int._Unit/L Normal 5-43 [facility] Comment on above: Performed By: #### 2 857965 #### [facility] [address] [place] [address] Bilirubin [Mass/Vol] 0.3 mg/dL Normal 0.0-1.1 [facility] Comment on above: Performed By: #### 2 022048 #### [facility] [address] [place] [address] Globulin (S) [Mass/Vol] 4.2 g/dL High 1.4-4.0 [facility] Comment on above: Performed By: #### 2 890521 #### [facility] [address] [place] [address] Protein [Mass/Vol] 7.2 g/dL Normal 6.0-7.8 [facility] Comment on above: Performed By: #### 2 556978 #### [facility] [address] [place] [address] Bilirubin.direct [Mass/Vol] mg/dL Normal 0.1-0.4 [facility] Comment on above: Performed By: #### 2 231185 #### [facility] [address] [place] [address] Bilirubin.indirect [Mass or moles/Vol] UTC Abnormal 0.1-0.9 [facility] Comment on above: Result Comment: Resu lt verified by Discern Rule. Performed result UTC (Unable to Calculate) was sent as an Alpha code due the inability to calculate a valid numeric value. Performed By: #### 2 348995, 2191219, 2338332, 62367148, 12869046 ####[facility] [address] [place] [address] Albumin [Mass/Vol] 3.0 g/dL Low 3.3-5.0 [facility] Comment on above: Performed By: #### 2 218415, 4081029, 4805297, 80463967, 53272439 ####[facility] [address] [place] [address] Albumin/Globulin (S) [Mass conc ratio] 0.7 Low 1.1-2.2 [facility] Comment on above: Performed By: #### 2 073759, 7987003, 6633706, 20190645, 37107498 ####[address] [place] [address] ALP [Catalytic activity/Vol] 42 Int._Unit/L Normal 21-98 [facility] Comment on above: Performed By: #### 2 523954, 3683837, 1025628, 57337209, 44534127 ####[address] [address] ALT No additional P-5'-P [Catalytic activity/Vol] 12 Int._Unit/L Normal 6-46 [facility] Comment on above: Performed By: #### 2 835344, 6561774, 4867434, 56507529, 93434226 ####[address] [address] AST [Catalytic activity/Vol] 13 Int._Unit/L Normal 5-43 [facility] Comment on above: Performed By: #### 2 469515, 3266780, 7207527, 21045684, 19098570 ####[address] [place] [address] Bilirubin [Mass/Vol] 0.4 mg/dL Normal 0.0-1.1 [facility] Comment on above: Performed By: #### 2 906559, 8717481, 5396468, 25769585, 52198686 ####[address] [place] [address] Globulin (S) [Mass/Vol] 4.2 g/dL High 1.4-4.0 [facility] Comment on above: Performed By: #### 2 705378, 9343377, 9830220, 94723066, 30203991 ####[address] [place] [address] Protein [Mass/Vol] 7.2 g/dL Normal 6.0-7.8 [facility] Comment on above: Performed By: #### 2 235656, 9873134, 6871530, 23072124, 47861554 ####[facility] [address] [place] [address] Bilirubin.direct [Mass/Vol] mg/dL Normal 0.1-0.4 [facility] Comment on above: Performed By: #### 2 442807, 1023331, 0598448, 42862685, 49475793 ####[facility] [address] [place] [address] Bilirubin.indirect [Mass or moles/Vol] UTC Abnormal 0.1-0.9 [facility] Comment on above: Result Comment: Resu lt verified by Discern Rule. Performed result UTC (Unable to Calculate) was sent as an Alpha code due the inability to calculate a valid numeric value. Performed By: #### 2 533032, 1893934 #### [facility] [address] [place] [address] Albumin [Mass/Vol] 2.9 g/dL Low 3.3-5.0 [facility] Comment on above: Performed By: #### 2 073779, 5412804 #### [facility] [address] [place] [address] Albumin/Globulin (S) [Mass conc ratio] 0.7 Low 1.1-2.2 [facility] Comment on above: Performed By: #### 2 521748, 8977926 #### [facility] [address] [place] [address] ALP [Catalytic activity/Vol] 40 Int._Unit/L Normal 21-98 [facility] Comment on above: Performed By: #### 2 703933, 6021476 #### [facility] [address] [place] [address] ALT No additional P-5'-P [Catalytic activity/Vol] 11 Int._Unit/L Normal 6-46 [facility] Comment on above: Performed By: #### 2 317034, 3452309 #### [facility] [address] [place] [address] AST [Catalytic activity/Vol] 16 Int._Unit/L Normal 5-43 [facility] Comment on above: Performed By: #### 2 421341, 4368711 #### [facility] [address] [place] [address] Bilirubin [Mass/Vol] 0.3 mg/dL Normal 0.0-1.1 [facility] Comment on above: Performed By: #### 2 679166, 0444064 #### [facility] [address] [place] [address] Globulin (S) [Mass/Vol] 4.0 g/dL Normal 1.4-4.0 [facility] Comment on above: Performed By: #### 2 727739, 0781277 #### [facility] [address] [place] [address] Protein [Mass/Vol] 6.9 g/dL Normal 6.0-7.8 [facility] Comment on above: Performed By: #### 2 428370, 1794373 #### [facility] [address] [place] [address] Bilirubin.direct [Mass/Vol] mg/dL Normal 0.1-0.4 [facility] Comment on above: Performed By: #### 2 329234, 1446762 #### [facility] [address] [place] [address] Interdisciplinary Note - Binu e Manageron 03-08-2023 Interdisciplinary Note - Amphibious Operations Officer CRM spoke with patient and mother in [...] harm self. discussed dc plan is pending MHP eval and recommendations. Patient has a sitter in the room. Normal [facility] Comment on above: Result Comment: Elec tronically Signed By: Don SHER, Antoinette\.br\Date and Time Signed: 03/08/23 12:53 EDT Monitor Recordon 03-08-2023 Monitor Record [id number]#1.00CD:1 27 Normal [facility] Monitor Record [id number]#1.00CD:1 27 Normal [facility] Monitor Record [id number]#1.00CD:1 27 Normal [facility] PT & PTTon 03-08-2023 aPTT Coag (PPP) [Time] 32.2 second(s) Normal 25.1-36.5 [facility] Comment on above: Result Comment: Para [...] the same coagulation reagent and instrumentation as [facility]. Currently there are no coagulation studies available worldwide for children to 14 days, and no normal ranges. Heparin therapeutic range (represented by Anti-Factor Xa activity of 0.2 - 0.4 U/mL) corresponds to PTT of 56.6 - 109.0 sec. Performed By: #### 2 930898, 1775488, 6982221, 34710037, 54526300 ####[facility] [address] [place] [address] INR Coag (PPP) [Relative time] 1.1 {INR} Invalid Interpretation Code [facility] Comment on above: Result Comment: INR results are specifically intended to assess patients stabilized on long-term Anticoagulation therapy suggested INR?s ?Less Intensive Anticoagulation? 2.0 ? 3.0 Conventional Range 3.0 ? 4.5 Performed By: #### 2 170919, 0310073, 3251648, 44403708, 22871172 ####[facility] [address] [place] [address] PT Coag (PPP) [Time] 12.1 second(s) Normal 9.4-12.5 [facility] Comment on above: Result Comment: 15 [...] the same coagulation reagent and instrumentation as [facility]. Currently there are no coagulation studies available worldwide for children to 14 days, and no normal ranges. Performed By: #### 2 973413, 0113055, 2281953, 99422215, 05186165 ####[facility] [address] [place] [address] Progress Note-Nurseon 2022 Progress Note-Nurse Patient assisted to [facility] and voids a small amount of clear yellow urine. Patient also ate a 6 inch sub and tolerated it well. She denies GI upset and tolerated it well. Observation continued and safety maintained. Normal [facility] Progress Note-Nurse Report taken and bed side handoff complete. Patient assisted to the [facility] and voids 200 ml of clear yellow urine. Patient is alert and oriented x4, denies pain, nausea, dizziness, GI upset, and dyspnea. She is calm, pleasant, appropriate, and cooperative at this time. Room cleared of all hazards and RN at the bedside within reach and in patient in constant view. Patient denies needs at this time. Seizure pads intact and safety maintained. Normal [facility] Progress Note-Nurse 1340: This RN contac [...] will remain on regular nursing floor. Normal [facility] Progress Note-Physicianon Progress Note-Physician Assessment/Plan 17-year-old [...] overdose with Tylenol/diphenhydramine.? Secondary to suicide ideation/attempt. plate worker evaluation. Acetaminophen level ekta to 40 but trended down to undetectable. Treating with IVF Thursday. LFTs within normal limit. Repeat LFTs and PT/INR in AM. Ordered: Basic Metabolic Panel Comprehensive Metabolic Panel Consult to Supervisor Title eGFR Extra Lav Tube Hepatic Function Panel PT [facility] Care/Day Moderate 35 Minutes 55886 2. Suicidal ideation (R45.851: Suicidal ideations) Supportive care. plate worker evaluation. Mental health evaluation in a.m. once medically stable. Ordered: Consult to Supervisor Title [facility] Care/Day Moderate 35 Minutes 06436 3. Antihistamines overdose (T45.0X1A: Poisoning by antiallergic and antiemetic drugs, accidental (unintentional), initial encounter) Treated with charcoal. Respiratory status and circulation currently stable. Treated with IV fluid. Bladder scan?so far not retaining urine. Ordered: [facility] Care/Day Moderate 35 Minutes 12973 4. Hypokalemia (E87.6: Hypokalemia) Secondary to gastrointestinal loss and IV fluid. We will replace orally. Ordered: potassium chloride, 40 mEq = 2 tab(s), Tab-ER, Oral, BID for 2 dose(s), Stop date 03/09/23 8:59:00 EDT, Routine, Start date 03/08/23 9:00:00 EDT, 03/08/23 8:36:00 EDT Comprehensive Metabolic Panel [facility] Care/Day Moderate 35 Minutes 32070 5. Depression (F32.A: Depression, unspecified) On fluoxetine. Ordered: [facility] Care/Day Moderate 35 Minutes 62564 6. Seizure (R56.9: Unspecified convulsions) No reported seizure. On Lamictal and Keppra. Ordered: lorazepam, 1 mg = 0.5 mL, Injection, IV Push, QID PRN Seizure, Routine, Start date 03/07/23 18:04:00 EDT 7. Obesity (E66.9: Obesity, unspecified) Recommend therapeutic lifestyle modification changes. 8. 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 Disposition: Pending mental health evaluation in AM. I discussed the diagnosis and plan of care with the patient at the bedside. Moderate level of MDM based on addressing above issues. This documentation was transcribed using voice recognition software. Several attempts were made to ensure accuracy. However inadvertent computerized cancer genetic counselor errors may be present. Jennifer Retana. Hospitalist. [...] -- charco (more content not included)... Normal [facility] Comment on above: Result Comment: Elec tronically Signed By: DEBBIE MARCANO, Jennifer\.br\Date and Time Signed: 03/08/23 08:38 EDT Reference Laboratory Testing Ordered By: Generated DomainUser on 03-08-2023 lamoTRIgine [Mass/Vol] microgram/mL Low 2.0-2 0.0mcg /mL [facility] [employer] Comment on above: Result Comment: Dete ction Limit = 1.0 Performed at: [address] [id number] MD Jose Armando Feliz levETIRAcetam [Mass/Vol] 12.4 microgram/mL Invalid Interpretation Code 10.0-40.0mc g/mL [facility] [employer] Comment on above: Result Comment: Perf ormed at: [address] [id number] MD Jose Armando Feliz eGFRon 03-08-2023 GFR/1.73 sq M.predicted among non-blacks MDRD (S/P/Bld) [Vol rate/Area] 109 mL/min/1.73 m2 Normal >=59 [facility] Comment on above: Order Comment: Order added by Discern Expert. Result Comment: Bulk Sealer marleny kidney disease could be indicated at eGFR's of less than 60 mL/min/1.73m2. Kidney failure is indicated at less than 15 mL/min/1.73m2. Performed By: #### 2 922338, 5977421, 7911330, 18064155, 58993660 ####[facility] [address] [place] [address] Acetamnphn Lvlon 03-07-2023 Acetaminophen [Mass/Vol] 40 microgram/mL Abnormal 15-30 [facility] Comment on above: Result Comment: Crit ical Result verified by repeat analysis\Critical Result S_ACTM:40.1 Called to ALLEN ZENG AT by SANIYA NEWBY And Read Back For Confirmation at: 03/07/2023 18:17:47 Performed By: #### 2 747640, 4529153 #### [facility] [address] [place] [address] Acetaminophen [Mass/Vol] 35 microgram/mL High 15-30 [facility] Comment on above: Performed By: #### 1 1440443, 8634417, 1917427, 3922412, 49025693, 2531102, 1734994, 5045588, 1379385 #### [facility] [address] [place] [address] Auto Diffon 03-07-2023 Basophils/100 WBC (Bld) 0.5 % Normal 0.0-2.0 [facility] Comment on above: Order Comment: Order Added by Discern Expert. Performed By: #### 1 1292337, 3112391, 4705062, 3849478, 24404118, 3379842, 4539183, 9963713, 3301335 ####[facility] [address] [place] [address] Basophils/Leukocytes Auto (Bld) [Pure # fraction] 0.0 E9/L Normal 0.0-0.2 [facility] Comment on above: Order Comment: Order Added by Discern Expert. Performed By: #### 1 4085811, 6994468, 0008982, 4451019, 54815614, 4095974, 5563345, 3861551, 8135493 ####[facility] [address] [place] [address] Eosinophils/100 WBC (Bld) 1.9 % Normal 0.0-8.0 [facility] Comment on above: Order Comment: Order Added by Discern Expert. Performed By: #### 1 3795796, 1562569, 1021431, 2503094, 53389674, 5998555, 2715231, 6155366, 3090204 ####[facility] [address] [address] Eosinophils/Leukocytes Auto (Bld) [Pure # fraction] 0.1 E9/L Normal 0.0-0.5 [facility] Comment on above: Order Comment: Order Added by Discern Expert. Performed By: #### 1 4318360, 7115338, 7272894, 6990480, 99113804, 4593001, 2527676, 3741694, 9426582 ####[address] [address] Lymphocytes/100 WBC (Bld) 28.7 % Normal 14.0-50.0 [facility] Comment on above: Order Comment: Order Added by Discern Expert. Performed By: #### 1 9732089, 0465035, 1418312, 4713970, 76615296, 6539906, 7447582, 5921660, 4220169 ####[address] [address] Lymphocytes/Leukocytes Auto (Bld) [Pure # fraction] 2.0 E9/L Normal 1.0-4.0 [facility] Comment on above: Order Comment: Order Added by Discern Expert. Performed By: #### 1 9011278, 0196133, 2146181, 1846963, 45746948, 3366345, 0418593, 3369454, 7709511 ####[address] [address] Monocytes/100 WBC (Bld) 8.6 % Normal 4.0-14.0 [facility] Comment on above: Order Comment: Order Added by Discern Expert. Performed By: #### 1 8457284, 5417815, 2749937, 7523734, 82826842, 5214701, 1997780, 8899632, 0074245 ####[address] [address] Monocytes/Leukocytes Auto (Bld) [Pure # fraction] 0.6 E9/L Normal 0.2-1.0 [facility] Comment on above: Order Comment: Order Added by Discern Expert. Performed By: #### 1 2851140, 8725367, 1965390, 5683062, 97811068, 1892170, 2189101, 1051283, 5837216 ####[facility] [address] [place] [address] Neutrophils/100 WBC (Bld) 60.3 % Normal 36.0-75.0 [facility] Comment on above: Order Comment: Order Added by Discern Expert. Performed By: #### 1 2236352, 7190328, 0754714, 2834144, 72076942, 1317614, 9534550, 7154528, 1037084 ####[facility] [address] [place] [address] Neutrophils/Leukocytes Auto (Bld) [Pure # fraction] 4.1 E9/L Normal 2.0-7.5 [facility] Comment on above: Order Comment: Order Added by Discern Expert. Performed By: #### 1 0579028, 5806840, 1730471, 6526239, 13524849, 8385679, 3547107, 5496985, 0074097 ####[facility] [address] [place] [address] B hCG Qualon 03-07-2023 Beta hCG Ql Negative Normal [facility] Comment on above: Performed By: #### 1 5423689, 3690690, 8833974, 1057050, 14480422, 6253301, 3796999, 4093030, 7740438 ####[facility] [address] [place] [address] BMPon 03-07-2023 Creatinine [Mass/Vol] 0.9 mg/dL Normal 0.5-1.3 [facility] Comment on above: Performed By: #### 1 7017034, 2949834, 6361192, 8714564, 91679287, 2901292, 2450534, 1788488, 6952260 ####[facility] [address] [place] [address] Urea nitrogen [Mass/Vol] 9 mg/dL Normal 5-21 [facility] Comment on above: Performed By: #### 1 1011904, 4709946, 1287977, 8633974, 78074242, 5732179, 9453578, 9716662, 0392711 ####[facility] [address] [place] [address] Urea nitrogen/Creatinine [Mass ratio] 10 No Units Normal 10-20 [facility] Comment on above: Performed By: #### 1 9698376, 9086065, 5694603, 5613588, 27022083, 4551130, 1839830, 7665800, 8122083 ####[facility] [address] [place] [address] Anion gap [Moles/Vol] 14 mmol/L Normal 6-16 [facility] Comment on above: Performed By: #### 1 1541149, 6412633, 5246205, 8769939, 08432523, 7261300, 2264426, 7856706, 7568758 ####[facility] [address] [place] [address] Calcium [Mass/Vol] 9.4 mg/dL Normal 8.9-11.1 [facility] Comment on above: Performed By: #### 1 7782374, 4455627, 8316617, 5348405, 61987722, 5766927, 5600916, 5041515, 2424738 ####[address] [place] [address] Chloride [Moles/Vol] 103 mmol/L Normal 101-111 [facility] Comment on above: Performed By: #### 1 0101145, 2577317, 7185191, 0373148, 02078099, 4662458, 7475155, 0744119, 7274403 ####[facility] [address] [place] [address] CO2 [Moles/Vol] 24 mmol/L Normal 21-31 [facility] Comment on above: Performed By: #### 1 3650868, 1052666, 4870772, 5562919, 49576930, 3908308, 0193250, 7851286, 1038888 ####[facility] [address] [place] [address] Glucose [Mass/Vol] 95 mg/dL Normal 55-199 [facility] Comment on above: Result Comment: If t his glucose result represents a fasting glucose, interpretation should refer to the following reference range: 55-99 mg/dL Performed By: #### 1 5246824, 9624185, 0476581, 9339189, 77570869, 2575999, 0874410, 4531975, 7850183 ####[facility] [address] [place] [address] Potassium [Moles/Vol] 3.6 mmol/L Normal 3.5-5.3 [facility] Comment on above: Performed By: #### 1 1048627, 7911647, 9620673, 1707770, 70814018, 1226323, 2064389, 9240689, 0566188 ####[address] [place] [address] Sodium [Moles/Vol] 137 mmol/L Normal 135-145 [facility] Comment on above: Performed By: #### 1 8832897, 6481177, 2045496, 4251562, 61131689, 7769446, 2991919, 2162805, 2889144 ####[facility] [address] [place] [address] CBC w/ Auto Diffon 3 Erythrocyte distribution width (RBC) [Ratio] 14.0 % Normal 10.9-14.2 [facility] Comment on above: Performed By: #### 1 0912136, 3596631, 2809690, 8639245, 14547729, 3933494, 8373301, 4262591, 2797274 ####[address] [place] [address] Hematocrit (Bld) [Volume fraction] 37.9 % Normal 34.0-46.0 [facility] Comment on above: Performed By: #### 1 7344384, 0940823, 2270049, 4697774, 40852654, 0610878, 1259230, 3025549, 3389244 ####[address] [address] Hemoglobin (Bld) [Mass/Vol] 12.6 g/dL Normal 12.0-16.0 [facility] Comment on above: Performed By: #### 1 6985115, 7191591, 0246018, 0087818, 11780979, 0059861, 8016344, 7092481, 7880407 ####[place] [address] MCH (RBC) [Entitic mass] 28.0 pg Normal 27.0-34.0 [facility] Comment on above: Performed By: #### 1 9058088, 3437522, 7335240, 5481535, 54520259, 8001928, 2858980, 3633796, 1304937 ####[place] [address] MCHC (RBC) [Mass/Vol] 33.3 g/dL Normal 31.4-36.0 [facility] Comment on above: Performed By: #### 1 8250500, 6789489, 7405115, 1757546, 66578946, 0823330, 7545043, 2448404, 1940353 ####[address] [address] MCV (RBC) [Entitic vol] 84.0 fL Normal 80.0-100.0 [facility] Comment on above: Performed By: #### 1 0901550, 4906172, 2622389, 6605829, 95740595, 7403583, 9246473, 3113245, 9775406 ####[address] [address] Platelet mean volume (Bld) [Entitic vol] 7.9 fL Normal 6.4-10.8 [facility] Comment on above: Performed By: #### 1 5192568, 4378930, 6529812, 1099458, 42068013, 3171667, 6189295, 2357851, 7436214 ####[address] [place] [address] Platelets (Bld) [#/Vol] 442.0 E9/L Normal 150.0-500.0 [facility] Comment on above: Performed By: #### 1 7046225, 8893880, 9039820, 7637904, 05456440, 8688744, 6365113, 2921064, 1662064 ####[facility] [address] [place] [address] RBC (Bld) [#/Vol] 4.5 E12/L Normal 4.3-5.9 [facility] Comment on above: Performed By: #### 1 9722886, 4295610, 9052873, 8512876, 86342772, 2149134, 1277182, 5609193, 1555242 ####[facility] [address] [place] [address] WBC corrected for nucl RBC Auto (Bld) [#/Vol] 6.8 E9/L Normal 4.0-11.0 [facility] Comment on above: Performed By: #### 1 6006344, 6991414, 1310533, 6370406, 57963448, 2062465, 7287120, 6269236, 8026698 ####[facility] [address] [place] [address] CHEMISTRYOrdered By: Debby Cleveland on 03-07-2023 Acetaminophen [...] 95 mL/min/1.73 m2 Normal >=59mL/min/ 1.73 m2 [facility] Chem S Glucose [Mass/Vol] 95 mg/dL Normal [...] Remisol Consent for Treatmenton Consent for Treatment [id number]:12 7 Normal [facility] ED Clinical Summaryon 2022 ED Clinical Summary (Inserted Image. Nida ble to display) [place] [id number] ED Clinical Summary Person Information Name: ROSE MARY SCHNEIDER/New_Lenny Age: 17 Years : 2005 Sex: Female Language: Swiss PCP: Claudia Ellington MD Marital Status: Single Phone: [phone] Visit Id: Visit Reason: Suicidal ideation; Intentional ingestion - overdose; SUICIDAL IDEATION Speciality: Acuity: 1 Enc Type: Observation Med Service: Emergency Arrival: 03/07/2023 14:06:45 Discharge: LOS: 000 04:36 Checkin: 03/07/2023 14:06:45 Checkout: 03/07/2023 18:42:28 Dispo Type: Admitted as IP to this [facility] EVENTS: Event Name Event Status Request Date/Time [...] 03/07/2023 18:42:28 03/07/2023 18:42:28 03/07/2023 18:42:28 ADDRESS: [address] [place] [address] [address] [place] [id number] [facility] DOC NOTES: MEDICAL INFORMATION: Prescriptions Given: Medications [...] 6:Obesity; 7:On deep vein thrombosis (DVT) prophylaxis [facility] ED Note-Physicianon 03-07-20 ED Note-Physician Basic Information Time Seen: Justice Browne MD 03/07/2023 14:13 Chief Complaint patient c/o dizziness, lethargy and GLASER after intentionally taking an entire bottle of [...] Oral Susp 240 mL, 50 gm, Oral Zffamr134-IA [F] 175 mL + acetylSoln-IV [F] 96131 mg, IV Piggyback Dextrose 5% in Water [...] Seizure Procedure/ (more content not included)... Normal [facility] Comment on above: Result Comment: Elec tronically Signed By: Andrew MARCANO, Justice\.br\Date and Time Signed: 03/07/23 17:43 EDT ED Patient Education Noteon 03-07-2023 ED Patient Education Note Normal [facility] ED Patient Summaryon 023 ED Patient Summary (Inserted Image. Nida ble to display) [place] [id number] Patient Discharge Instructions Person Information Name: ROSE MARY SCHNEIDER Age: 17 Years Arrival Date: 03/07/2023 14:06:45 Discharge Diagnosis: 1:Intentional acetaminophen overdose; 2:Suicidal ideation; 3:Antihistamines overdose; 4:Depression; 5:Seizure; 6:Obesity; 7:On deep vein thrombosis (DVT) prophylaxis Primary Care Physician: Claudia Ellingtno MD Provider Information Primary Provider: Justice Browne MD [employer] Specialist:None The exam and treatment you received in the Emergency Department were for an urgent problem and are not intended as complete care. It is important that you follow up with a doctor, nurse practitioner, or physician?s assistant superintendent for curriculum for ongoing care. If your symptoms become [...] opioids can be used to help relieve vexbnjih-rp-bnrqdn pain and are often prescribed following a [...] struggling with addiction, tell your health healthcare liaison and ask for guidance or call [employer]?S National Helpline at 9-547-334-HELP. v Source: [place] Department of Health and Human (more content not included)... Normal [facility] Ethanolon 03-07-2023 Ethanol [Mass/Vol] mg/dL Normal <=7 [facility] Comment on above: Performed By: #### 2 809180 #### [facility] [address] [place] [address] HEMATOLOGYOrdered By: SYSTEM SYSTEM on 03-07-2023 Basophils/100 [...] 6.8 E9/L Normal 4.0 - 11.0 E9/L [facility] HemeAutoSS Hep Func Panelon 03-07-2023 Albumin [Mass/Vol] 3.2 g/dL Low 3.3-5.0 [facility] Comment on above: Performed By: #### 2 321966, 7227888 #### [facility] [address] [place] [address] Albumin/Globulin (S) [Mass conc ratio] 0.7 Low 1.1-2.2 [facility] Comment on above: Performed By: #### 2 197261, 4267639 #### [facility] [address] [place] [address] ALP [Catalytic activity/Vol] 45 Int._Unit/L Normal 21-98 [facility] Comment on above: Performed By: #### 2 286181, 5807409 #### [facility] [address] [place] [address] ALT No additional P-5'-P [Catalytic activity/Vol] 12 Int._Unit/L Normal 6-46 [facility] Comment on above: Performed By: #### 2 403049, 1084018 #### [facility] [address] [place] [address] AST [Catalytic activity/Vol] 16 Int._Unit/L Normal 5-43 [facility] Comment on above: Performed By: #### 2 [id number], [id number] #### [facility] [address] [place] [address] Bilirubin [Mass/Vol] 0.2 mg/dL Normal 0.0-1.1 [facility] Comment on above: Performed By: #### 2 [id number], [id number] #### [facility] [address] [place] [address] Bilirubin.indirect [Mass or moles/Vol] UTC Abnormal 0.1-0.9 [facility] Comment on above: Result Comment: Resu lt verified by Discern Rule. Performed result UTC (Unable to Calculate) was sent as an Alpha code due the inability to calculate a valid numeric value. Performed By: #### 2 [id number], [id number] #### [facility] [address] [place] [address] Globulin (S) [Mass/Vol] 4.6 g/dL High 1.4-4.0 [facility] Comment on above: Performed By: #### 2 840887, [id number] #### [facility] [address] [place] [address] Protein [Mass/Vol] 7.8 g/dL Normal 6.0-7.8 [facility] Comment on above: Performed By: #### 2 400569, 6662754 #### [facility] [address] [place] [address] Bilirubin.direct [Mass/Vol] mg/dL Normal 0.1-0.4 [facility] Comment on above: Performed By: #### 2 698127, 2348768 #### [facility] [address] [place] [address] Bilirubin.indirect [Mass or moles/Vol] UTC Abnormal 0.1-0.9 [facility] Comment on above: Result Comment: Resu lt verified by Discern Rule. Performed result UTC (Unable to Calculate) was sent as an Alpha code due the inability to calculate a valid numeric value. Performed By: #### 1 8531155, 8447919, 0149772, 9659874, 71640345, 4760997, 7527264, 9136754, 2766652 ####[address] [place] [address] Albumin [Mass/Vol] 3.1 g/dL Low 3.3-5.0 [facility] Comment on above: Performed By: #### 1 5069507, 4790664, 6755681, 3956244, 64717628, 4302459, 8182751, 9334175, 4443660 ####[address] [place] [address] Albumin/Globulin (S) [Mass conc ratio] 0.7 Low 1.1-2.2 [facility] Comment on above: Performed By: #### 1 7804886, 0498883, 8381397, 3005478, 41221540, 8595820, 0385724, 1692137, 9329477 ####[address] [address] ALP [Catalytic activity/Vol] 48 Int._Unit/L Normal 21-98 [facility] Comment on above: Performed By: #### 1 1776523, 3864377, 9998197, 4356315, 36393056, 1689429, 3593456, 8839193, 1831271 ####[address] [address] ALT No additional P-5'-P [Catalytic activity/Vol] 11 Int._Unit/L Normal 6-46 [facility] Comment on above: Performed By: #### 1 3330341, 0928313, 6534150, 7655026, 90055795, 5505194, 1675899, 4769225, 0055112 ####[address] [place] [address] AST [Catalytic activity/Vol] 16 Int._Unit/L Normal 5-43 [facility] Comment on above: Performed By: #### 1 7686029, 0562303, 2183626, 1291173, 13683071, 4347525, 9950235, 8474002, 7872950 ####[address] [place] [address] Bilirubin [Mass/Vol] 0.5 mg/dL Normal 0.0-1.1 [facility] Comment on above: Performed By: #### 1 9623677, 5729391, 2861896, 7978544, 87229510, 7447280, 9354132, 4650373, 1457189 ####[facility] [address] [place] [address] Globulin (S) [Mass/Vol] 4.4 g/dL High 1.4-4.0 [facility] Comment on above: Performed By: #### 1 3271293, 4309842, 0174691, 6531990, 34031369, 6358931, 7951149, 0064983, 2498548 ####[facility] [address] [place] [address] Protein [Mass/Vol] 7.5 g/dL Normal 6.0-7.8 [facility] Comment on above: Performed By: #### 1 5916119, 3642326, 1698189, 8323177, 83226148, 8228409, 4975051, 2767811, 4239875 ####[facility] [address] [place] [address] Bilirubin.direct [Mass/Vol] mg/dL Normal 0.1-0.4 [facility] Comment on above: Performed By: #### 1 6455547, 7094673, 0335383, 0097628, 78883718, 1357749, 0306923, 7385112, 0623003 ####[facility] [address] [place] [address] Lipase Levelon 03-07-2023 Lipase [Catalytic activity/Vol] 24 U/L Normal 13-58 [facility] Comment on above: Performed By: #### 1 5062104, 1352062, 2926832, 4535749, 94645652, 7838904, 2320902, 7538582, 0263390 #### [facility] [address] [place] [address] Monitor Recordon 03-07-2023 Monitor Record [id number]#[id number]:[address] [facility] Monitor Record [id number]#[id number]:[address] [facility] Monitor Record [id number]#[id number]:[address] [facility] Pre-Arrival Noteon 3 Pre-Arrival Note Pre-Arrival Summary Name: , Current Date: 03/07/2023 14:11:15 EDT Gender: Date of : Age: 17 Pre-Arrival Type: EMS ETA: 03/07/2023 14:33:00 EDT Primary Care Physician: Presenting Problem: overdose tylenol PM Pre-Arrival User: Julianne Sanford RN Referring Source: Location: [place] Completion Date/Time: 03/07/2023 14:03:00 [facility] Emergency Department Pre-Hospital Report Form ____ Vital Signs: Pre-Hospital Report: Treatment in Route: Response to Treatment: Misc. Issues: [facility] Progress Note-Nurseon 2022 Progress Note-Nurse Poison Control aj d and spoke with Chiquis who verbalized [address] Andrew jauregui [facility] SEROLOGYOrdered By: Kizzy Newby on 03-07-2023 Beta hCG Ql Negative (03/07/23 2:43 PM) [facility] Man Sero Salicylateon 03-07-2023 Salicylates [Mass/Vol] mg/dL Low 6-29 [facility] Comment on above: Performed By: #### 1 9538791, 1763640, 7329692, 2769434, 06812264, 5194100, 2715483, 4067488, 9462823 #### [facility] [address] [place] [address] U Drug Screenon 03-07-2023 Amphetamines Screen method >1000 ng/mL Ql (U) Negative Normal Negative [facility] Comment on above: Result Comment: Nega tive Cutoff: <1000 ng/mL Performed By: #### 2 628375 #### [facility] [address] [place] [address] Barbiturates Screen Ql (U) Negative Normal Negative [facility] Comment on above: Result Comment: Nega tive Cutoff: <200 ng/mL Performed By: #### 2 009328 #### [facility] [address] [place] [address] Benzodiazepines Ql (U) Negative Normal Negative [facility] Comment on above: Result Comment: Nega tive Cutoff: <200 ng/mL Performed By: #### 2 739300 #### [facility] [address] [place] [address] Cocaine Ql (U) Negative Normal Negative [facility] Comment on above: Result Comment: Nega tive Cutoff: <300 ng/mL Performed By: #### 2 050853 #### [facility] [address] [place] [address] Opiates Screen Ql (U) Negative Normal Negative [facility] Comment on above: Result Comment: Nega tive Cutoff: <300 ng/mL Performed By: #### 2 810460 #### [facility] [address] [place] [address] Phencyclidine Screen method >25 ng/mL Ql (U) Negative Normal Negative [facility] Comment on above: Result Comment: Nega tive Cutoff: <25 ng/mL These drug screen results are to be used for medical (i.e., treatment) purposes only. Unconfirmed drug screening results must not be used for non-medical purposes (e.g., employment testing, legal testing). Performed By: #### 2 157123 #### [facility] [address] [place] [address] Tetrahydrocannabinol Screen method >50 ng/mL Ql (U) Negative Normal Negative [facility] Comment on above: Result Comment: Nega tive Cutoff: <50 ng/mL Performed By: #### 2 471723 #### [facility] [address] [place] [address] XR Chest Single Viewon 03-07 XR Chest [...] mGy = na DAP = na Normal [facility] eGFRon 03-07-2023 GFR/1.73 sq M.predicted among non-blacks MDRD (S/P/Bld) [Vol rate/Area] 95 mL/min/1.73 m2 Normal >=59 [facility] Comment on above: Order Comment: Order added by Discern Expert. Result Comment: Bulk Sealer marleny kidney disease could be indicated at eGFR's of less than 60 mL/min/1.73m2. Kidney failure is indicated at less than 15 mL/min/1.73m2. Performed By: #### 1 0508764, 7382218, 9390288, 1036222, 40662303, 3732973, 6647714, 2409027, 6357174 ####[facility] [address] [place] [address] B hCG Qualon 02-27-2023 Beta hCG Ql Negative Normal [facility] Comment on above: Performed By: #### 2 243537, 3686291 #### [facility] [address] [place] [address] Consent for Treatmenton 02-01 Consent for Treatment [id number]#1.00CD:12 7 Normal [facility] Physician Orderon 02-27-2023 Physician Order [id number]#1.00CD:1 27 Normal [facility] CHEMISTRYOrdered By: SYSTEM SYSTEM on 11-13-2022 [...] 7.1 E9/L Normal 4.0 - 10.5 E9/L [facility] HemeAutoSS SEROLOGYOrdered By: Cyn ward on 11-13-2022 Beta hCG Ql Negative (11/13/22 2:56 PM) Normal [facility] Man Sero URINALYSISOrdered By: Marilyn Rivas on [...] (Urine sed) [#/Area] 5-8 /HPF Normal 0-2/HPF [facility] Auto SS Glucose Test strip (U) [Mass/Vol] Negative (11/13/22 2:29 PM) Normal Negative [facility] UA Auto SS Hemoglobin Ql (U) Negative (11/13/22 2:29 PM) Normal Negative [facility] UA Auto SS Ketones (U) [Mass/Vol] Negative (11/13/22 2:29 PM) Normal Negative [facility] UA Auto SS [place].plasma/[place] .RBC (Bld) [Mass ratio] 0-3 /HPF Normal [...] [facility] UA Auto SS Urobilinogen Qn (U) 0.3205799 {Ed'U}/dL Normal 0.0 - 1.0 EU/dL [facility] UA Auto SS WBC Auto Ql (U) Trace *ABN* (11/13/22 2:29 PM) Invalid Interpretation Code Negative [facility] UA Auto SS WBC LM.HPF (Urine sed) [#/Area] 0-5 /HPF Normal 0-5/HPF [facility] UA Auto SS CBC AUTO DIFFon 11-05-2022 BASO # 0.0 103/ul Normal 0.0-0.1 [facility] Comment on above: Performed By: #### C BC #### [facility] [address] [place] [address] Dr. Tara Jackson Basophils/100 WBC (Bld) 0.5 % Normal 0.2-2.0 [facility] Comment on above: Performed By: #### C BC #### [facility] [address] [place] [address] Dr. Tara Jackson EO # 0.3 103/ul Normal 0.0-0.7 [facility] Comment on above: Performed By: #### C BC #### [facility] [address] [place] [address] Dr. Tara Jackson Eosinophils/100 WBC (Bld) 4.9 % Normal 0.9-7.0 [facility] Comment on above: Performed By: #### C BC #### [facility] [address] [place] [address] Dr. Tara Jackson Erythrocyte distribution width (RBC) [Ratio] 12.8 % Normal 11.0-15.0 [facility] Comment on above: Performed By: #### C BC #### [facility] [address] [place] [address] Dr. Tara Jackson Hematocrit (Bld) [Volume fraction] 35.8 % Critically low 36.0-48.0 [facility] Comment on above: Performed By: #### C BC #### [facility] [address] [place] [address] Dr. Tara Jackson Hemoglobin (Bld) [Mass/Vol] 11.8 g/dL Critically low 12.0-16.0 [facility] Comment on above: Performed By: #### C BC #### [facility] [address] [place] [address] Dr. Tara Jackson IG # 0.01 10e3/ul Normal 0.00-0.03 [facility] Comment on above: Performed By: #### C BC #### [facility] [address] [place] [address] Dr. Tara Jackson IG % 0.2 % Normal 0.0-0.5 [facility] Comment on above: Performed By: #### C BC #### [facility] [address] [place] [address] Dr. Tara Jackson LYMPH # 1.7 103/ul Normal 1.2-3.8 [facility] Comment on above: Performed By: #### C BC #### [facility] [address] [place] [address] Dr. Tara Jackson Lymphocytes/100 WBC (Bld) 30.2 % Normal 20.5-60.0 [facility] Comment on above: Performed By: #### C BC #### [facility] [address] [place] [address] Dr. Tara Jackson MANUAL DIFF REQ NO Normal [facility] Comment on above: Performed By: #### C BC #### [facility] [address] [place] [address] Dr. Tara Jackson MCH (RBC) [Entitic mass] 27.6 pg Normal 26.7-34.0 [facility] Comment on above: Performed By: #### C BC #### [facility] [address] [place] [address] Dr. Tara Jackson MCHC (RBC) [Mass/Vol] 33.0 g/dL Normal 29.9-35.2 [facility] Comment on above: Performed By: #### C BC #### [facility] [address] [place] [address] Dr. Tara Jackson MCV (RBC) [Entitic vol] 83.8 fL Normal 79.1-95.6 [facility] Comment on above: Performed By: #### C BC #### [facility] [address] [place] [address] Dr. Tara Jackson MONO # 0.5 103/ul Normal 0.3-0.8 [facility] Comment on above: Performed By: #### C BC #### [facility] [address] [place] [address] Dr. Tara Jackson Monocytes/100 WBC (Bld) 7.9 % Normal 1.7-12.0 [facility] Comment on above: Performed By: #### C BC #### [facility] [address] [place] [address] Dr. Tara Jackson NEUT # 3.2 103/ul Normal 1.4-6.5 [facility] Comment on above: Performed By: #### C BC #### [facility] [address] [place] [address] Dr. Tara Jackson Neutrophils/100 WBC (Bld) 56.3 % Normal 43.0-75.0 [facility] Comment on above: Performed By: #### C BC #### [facility] [address] [place] [address] Dr. Tara Jackson Platelet mean volume (Bld) [Entitic vol] 9.0 fL Critically low 9.5-13.5 [facility] Comment on above: Performed By: #### C BC #### [facility] [address] [place] [address] Dr. Tara Jackson PLT 373 103/ul Normal 150-450 [facility] Comment on above: Performed By: #### C BC #### [facility] [address] [place] [address] Dr. Tara Jackson RBC 4.27 106/ul Normal 3.40-5.30 [facility] Comment on above: Performed By: #### C BC #### [facility] [address] [place] [address] Dr. Tara Jackson WBC 5.7 103/ul Normal 4.0-11.0 [facility] Comment on above: Performed By: #### C BC #### [facility] [address] [place] [address] Dr. 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 Admission #: [id number] Family : TEENA TRAN . Order #: [id number] CLICK HERE TO VIEW EXAM ECHOCARDIOGRAM REPORT [...] Tafoya M.D. on 11/06/2022 at 18:40 Normal [facility] PREG HCG QUALon 11-05-2022 , QUAL Negative Normal NEGATIVE [facility] Comment on above: Performed By: #### C BC #### [facility] [address] [address] [address] Tara Jackson PROF CHEM 8 (BAS METB)on Anion gap [Moles/Vol] 11.4 mmol/L Normal [facility] Comment on above: Performed By: #### C VDTBH #### [facility] [address] [address] [address] Tara Jackson Calcium [Mass/Vol] 8.5 mg/dL Normal 8.5-10.1 [facility] Comment on above: Performed By: #### C VDTBH #### [facility] [address] [place] [address] Dr. Tara Jackson Chloride [Moles/Vol] 103 mmol/L Normal 98-107 [facility] Comment on above: Performed By: #### C VDTBH #### [facility] [address] [address] [address] Tara Jackson CO2 [Moles/Vol] 27.5 mmol/L Normal 21.0-32.0 [facility] Comment on above: Performed By: #### C VDTBH #### [facility] [address] [address] [address] Tara Jackson Creatinine [Mass/Vol] 0.67 mg/dL Normal 0.55-1.02 [facility] Comment on above: Performed By: #### C VDTBH #### [facility] [address] [address] [address] Tara Jackson Glucose [Mass/Vol] 93 mg/dL Normal 74-106 [facility] Comment on above: Performed By: #### C VDTBH #### [facility] [address] [address] [address] Tara Jackson Potassium [Moles/Vol] 3.9 mmol/L Normal 3.5-5.1 [facility] Comment on above: Performed By: #### C VDTBH #### [facility] [address] [place], [place] [address] Dr. Tara Jackson Sodium [Moles/Vol] 138 mmol/L Normal 136-145 [facility] Comment on above: Performed By: #### C VDTBH #### [facility] [address] [place], [place] [address] Dr. Tara Jackson Urea nitrogen [Mass/Vol] 15.0 mg/dL Normal 6.4-19.3 [facility] Comment on above: Performed By: #### C VDTBH #### [facility] [address] [address] [address] Tara Jackson Urea nitrogen/Creatinine [Mass ratio] 22.4 mg/mg Normal [facility] Comment on above: Performed By: #### C VDTBH #### [facility] [address] [address] [address] Tara Jackson CHEMISTRYOrdered By: SYSTEM SYSTEM [...] NEG Ctl Pass (10/10/22 10:09 PM) Normal [facility] Man Sero Rapid COV Int POS Ctl Pass (10/10/22 10:09 PM) Normal [facility] Man [facility]ero SARS-CoV+SARS-CoV-2 (COVID-19) Ag IA.rapid Ql (Resp) Not Detected (10/10/22 10:09 PM) Normal Not Detected [facility] SEROLOGYOrdered By: Ruth orellana on 10-10-2022 HCG.beta subunit (U) [Moles/Vol] Negative Normal [facility] CHEMISTRYOrdered By: SYSTEM SYSTEM on 10-06-2022 Anion gap [Moles/Vol] 12 mmol/L Normal 6 - 16 mEq/L [facility] Remisol Calcium [Mass/Vol] 8.5 mg/dL Low 8.9 [...] 10-06-2022 HCG.beta subunit (U) [Moles/Vol] Negative Normal [facility] Man Sero URINALYSISOrdered By: Lady Cleveland on 10-06-2022 Bilirubin Ql (U) Negative (10/06/22 1:20 AM) Normal Negative [facility] UA Auto SS Clarity (U) Clear (10/06/22 1:20 AM) Normal Clear [facility] UA Auto SS Color (U) Yellow (10/06/22 1:20 AM) Normal Yellow [facility] UA Auto SS Epithelial cells.squamous LM.HPF (Urine sed) [#/Area] 0-2 /HPF Normal 0-2/HPF [facility] Auto SS Glucose Test strip (U) [Mass/Vol] Negative (10/06/22 1:20 AM) Normal Negative [facility] UA Auto SS Hemoglobin Ql (U) Trace *ABN* (10/06/22 1:20 AM) Invalid Interpretation Code Negative [facility] Auto SS Ketones (U) [Mass/Vol] Negative (10/06/22 1:20 AM) Normal Negative [facility] UA Auto SS [place].plasma/[place] .RBC (Bld) [Mass ratio] 0-3 /HPF Normal 0-3/HPF [facility] UA Auto SS Mucus Ql (Urine sed) 2+ (10/06/22 1:20 AM) Normal [facility] UA Auto SS Nitrite Ql (U) Negative (10/06/22 1:20 AM) Normal Negative [facility] Auto SS pH (U) 6.0 *NA* (10/06/22 1:20 AM) Invalid Interpretation Code 5.0 - 9.0 [facility] UA Auto SS Protein (U) [Mass/Vol] Negative (10/06/22 1:20 AM) Normal Negative [facility] Auto SS Specific gravity (U) [Rel density] >=1.030 *NA* (10/06/22 1:20 AM) Invalid Interpretation Code 1.005 - 1.030 [facility] UA Auto SS UA Spec Desc Clean Catch (10/06/22 1:20 AM) Normal [facility] UA Auto SS Urobilinogen Qn (U) 0.0218670 {Ed'U}/dL Normal 0.0 - 1.0 EU/dL [facility] Auto SS WBC Auto Ql (U) Negative (10/06/22 1:20 AM) Normal Negative [facility] UA Auto SS WBC LM.HPF (Urine sed) [#/Area] 0-5 /HPF Normal 0-5/HPF [facility] UA Auto SS CHEMISTRYOrdered By: Anette ROP User on 10-05-2022 Glucose [Mass/Vol] 131 mg/dL High 55 - 99 mg/dL [facility] POC Subsection Comment on above: Result Comment: Shanique percy Meter POC Device SN [id number] Invalid Interpretation Code [facility] POC Subsection POC User ID [id number] Invalid Interpretation Code [facility] POC Subsection POC Username CHRISTIANO GARCIA Invalid Interpretation Code [facility] POC Subsection LEVETIRACETAM, SERUM OR PLAS MAon 09-27-2022 Levetiracetam, S 13.6 ug/mL Normal 10.0-40.0 [facility] Comment on above: Performed By: #### C BC #### [facility] [address] [place] [address] Dr. Tara Jackson INSULINon 09-26-2022 Insulin 21.0 uIU/mL Normal 2.6-24.9 [facility] Comment on above: Performed By: #### I NSULIN #### [facility] [address] [place] [address] Dr. Tara Jackson BILIRUBIN CONJUGATED (DIRECT )on 09-25-2022 BILI, CONJUGATED 0.1 mg/dL Normal 0.0-0.2 [facility] Comment on above: Performed By: #### C VDTBH #### [facility] [address] [place] [address] Dr. Tara Jackson CBC AUTO DIFFon 09-25-2022 BASO # 0.0 103/ul Normal 0.0-0.1 [facility] Comment on above: Performed By: #### C VDTBH #### [facility] [address] [place] [address] Dr. Tara Jackson Basophils/100 WBC (Bld) 0.6 % Normal 0.2-2.0 [facility] Comment on above: Performed By: #### C VDTBH #### [facility] [address] [place] [address] Dr. Tara Jackson EO # 0.3 103/ul Normal 0.0-0.7 [facility] Comment on above: Performed By: #### C VDTBH #### [facility] [address] [place] [address] Dr. Tara Jackson Eosinophils/100 WBC (Bld) 4.5 % Normal 0.9-7.0 [facility] Comment on above: Performed By: #### C VDTBH #### [facility] [address] [place] [address] Dr. Tara Jackson Erythrocyte distribution width (RBC) [Ratio] 12.2 % Normal 11.0-15.0 [facility] Comment on above: Performed By: #### C VDTBH #### [facility] [address] [place] [address] Dr. Tara Jackson Hematocrit (Bld) [Volume fraction] 38.4 % Normal 36.0-48.0 [facility] Comment on above: Performed By: #### C VDTBH #### [facility] [address] [place] [address] Dr. Tara Jackson Hemoglobin (Bld) [Mass/Vol] 13.0 g/dL Normal 12.0-16.0 [facility] Comment on above: Performed By: #### C VDTBH #### [facility] [address] [place] [address] Dr. Tara Jackson IG # 0.01 10e3/ul Normal 0.00-0.03 [facility] Comment on above: Performed By: #### C VDTBH #### [facility] [address] [place] [address] Dr. Tara Jackson IG % 0.2 % Normal 0.0-0.5 [facility] Comment on above: Performed By: #### C VDTBH #### [facility] [address] [place] [address] Dr. Tara Jackson LYMPH # 1.8 103/ul Normal 1.2-3.8 [facility] Comment on above: Performed By: #### C VDTBH #### [facility] [address] [place] [address] Dr. Tara Jackson Lymphocytes/100 WBC (Bld) 28.7 % Normal 20.5-60.0 [facility] Comment on above: Performed By: #### C VDTBH #### [facility] [address] [place] [address] Dr. Tara Jackson MANUAL DIFF REQ NO Normal [facility] Comment on above: Performed By: #### C VDTBH #### [facility] [address] [place] [address] Dr. Tara Jackson MCH (RBC) [Entitic mass] 28.6 pg Normal 26.7-34.0 [facility] Comment on above: Performed By: #### C VDTBH #### [facility] [address] [place] [address] Dr. Tara Jackson MCHC (RBC) [Mass/Vol] 33.9 g/dL Normal 29.9-35.2 [facility] Comment on above: Performed By: #### C VDTBH #### [facility] [address] [place] [address] Dr. Tara Jackson MCV (RBC) [Entitic vol] 84.4 fL Normal 79.1-95.6 [facility] [facility] Comment on above: Performed By: #### C VDTBH #### [facility] [address] [place] [address] Dr. Tara Jackson MONO # 0.4 103/ul Normal 0.3-0.8 [facility] Comment on above: Performed By: #### C VDTBH #### [facility] [address] [place] [address] Dr. Tara Jackson Monocytes/100 WBC (Bld) 6.5 % Normal 1.7-12.0 [facility] Comment on above: Performed By: #### C VDTBH #### [facility] [address] [place] [address] Dr. Tara Jackson NEUT # 3.7 103/ul Normal 1.4-6.5 [facility] Comment on above: Performed By: #### C VDTBH #### [facility] [address] [address] [address] Tara Jackson Neutrophils/100 WBC (Bld) 59.5 % Normal 43.0-75.0 [facility] Comment on above: Performed By: #### C VDTBH #### [facility] [address] [place] [address] Dr. Tara Jackson Platelet mean volume (Bld) [Entitic vol] 9.0 fL Critically low 9.5-13.5 [facility] Comment on above: Performed By: #### C VDTBH #### [facility] [address] [place] [address] Dr. Taar Jackson PLT 401 103/ul Normal 150-450 [facility] Comment on above: Performed By: #### C VDTBH #### [facility] [address] [place] [address] Dr. Tara Jackson RBC 4.55 106/ul Normal 3.40-5.30 [facility] Comment on above: Performed By: #### C VDTBH #### [facility] [address] [place] [address] Dr. Tara Jackson WBC 6.2 103/ul Normal 4.0-11.0 [facility] Comment on above: Performed By: #### C VDTBH #### [facility] [address] [place] [address] Dr. Tara Jackson FREE THYROXINE INDEX T7on FTI 2.77 Normal 1.30-4.50 [facility] Comment on above: Performed By: #### C BC #### [facility] [address] [place] [address] Dr. Tara Jackson T3U 36.0 % Normal 30.0-39.0 [facility] Comment on above: Performed By: #### C BC #### [facility] [address] [place] [address] Dr. Tara Jackson T4 [Mass/Vol] 7.70 ug/dL Normal 5.40-10.60 [facility] Comment on above: Performed By: #### C BC #### [facility] [address] [place] [address] Dr. Tara Jackson GLYCOHEMOGLOBIN A1Con 2022 ADA RECOMMENDATION SEE BELOW Normal [facility] Comment on above: Result Comment: ADA RECOMMENDED LIMIT 4.0 - 6.0 ADA THERAPEUTIC TARGET < 7.0 ACTION SUGGESTED > 7.0 Performed By: #### A 1C #### [facility] [address] [place] [address] Dr. Tara Jackson Glucose [Mass/Vol] 103 mg/dL Normal [facility] Comment on above: Performed By: #### A 1C #### [facility] [address] [place] [address] Dr. Tara Jackson HbA1c (Bld) [Mass fraction] 5.2 % Normal 4.5-6.2 [facility] Comment on above: Performed By: #### A 1C #### [facility] [address] [place] [address] Dr. Tara Jackson IRONon 09-25-2022 Iron [Mass/Vol] 33.0 ug/dL Critically low 50.0-170.0 [facility] Comment on above: Performed By: #### C VDTB #### [facility] [address] [place] [address] Dr. Tara Jackson LIPID PROFILEon 09-25-2022 CHOL-HDL RATIO NORM SEE BELOW Normal [facility] Comment on above: Result Comment: 3.3 - 4.4 LOW RISK 4.4 - 7.1 AVERAGE RISK 7.1 - 11.0 MODERATE RISK >11.0 HIGH RISK Performed By: #### C BC #### [facility] [address] [place] [address] Dr. Tara Jackson Cholesterol [Mass/Vol] 189 mg/dL Normal 104-227 [facility] Comment on above: Performed By: #### C BC #### [facility] [address] [place] [address] Dr. Tara Jackson Cholesterol in HDL [Mass/Vol] 36 mg/dL Normal 29-69 [facility] Comment on above: Performed By: #### C BC #### [facility] [address] [place] [address] Dr. Tara Jackson Cholesterol in LDL [Mass/Vol] 128.4 mg/dL Normal 46.0-140.0 [facility] Comment on above: Performed By: #### C BC #### [facility] [address] [address] [address] Tara Jackson Cholesterol.total/Chol esterol in HDL [Mass ratio] 5.3 {ratio} Normal [facility] Comment on above: Performed By: #### C BC #### [facility] [address] [address] [address] Tara Jackson HDL NORMAL > or = 60 mg/dl - LO W CARDIOVASCULAR RISK <40 mg/dl - HIGH CARDIOVASCULAR RISK Normal [facility] Comment on above: Performed By: #### C BC #### [facility] [address] [address] [address] Tara Jackson LDL CALC NORMAL SEE BELOW Normal [facility] Comment on above: Result Comment: <100 mg/dl OPTIMAL 100 - 129 mg/dl NEAR OR ABOVE OPTIMAL 130 - 159 mg/dl BORDERLINE HIGH 160 - 189 mg/dl HIGH >190 mg/dl VERY HIGH Performed By: #### C BC #### [facility] [address] [address] [address] Tara Jackson Triglyceride [Mass/Vol] 123 mg/dL Normal 53-208 [facility] Comment on above: Performed By: #### C BC #### [facility] [address] [place] [address] Dr. Tara Jackson VLDL CALC 24.6 mg/dL Normal [facility] Comment on above: Performed By: #### C BC #### [facility] [address] [address] [address] Tara Jackson PROF 14(COMP METB)on 023 Albumin [Mass/Vol] 3.2 g/dL Critically low 3.4-5.0 [facility] Comment on above: Performed By: #### C BC #### [facility] [address] [place] [address] Dr. Tara Jackson Albumin/Globulin [Mass ratio] 0.7 {ratio} Normal [facility] Comment on above: Performed By: #### C BC #### [facility] [address] [address] [address] Tara Jackson ALP [Catalytic activity/Vol] 80 U/L Normal 65-260 [facility] Comment on above: Performed By: #### C BC #### [facility] [address] [place] [address] Dr. Tara Jackson ALT [Catalytic activity/Vol] 18 U/L Normal 14-59 [facility] Comment on above: Performed By: #### C BC #### [facility] [address] [place] [address] Dr. Tara Jackson Anion gap [Moles/Vol] 9.0 mmol/L Normal [facility] Comment on above: Performed By: #### C BC #### [facility] [address] [place] [address] Dr. Tara Jackson AST [Catalytic activity/Vol] 18 U/L Normal 15-37 [facility] Comment on above: Performed By: #### C BC #### [facility] [address] [place] [address] Dr. Tara Jackson Bilirubin [Mass/Vol] 0.2 mg/dL Normal 0.2-1.0 [facility] Comment on above: Performed By: #### C BC #### [facility] [address] [place] [address] Dr. Tara Jackson Calcium [Mass/Vol] 9.1 mg/dL Normal 8.5-10.1 [facility] Comment on above: Performed By: #### C BC #### [facility] [address] [place] [address] Dr. Tara Jackson Chloride [Moles/Vol] 101 mmol/L Normal 98-107 [facility] Comment on above: Performed By: #### C BC #### [facility] [address] [place] [address] Dr. Tara Jackson CO2 [Moles/Vol] 30.2 mmol/L Normal 21.0-32.0 [facility] Comment on above: Performed By: #### C BC #### [facility] [address] [address] [address] Tara Jackson Creatinine [Mass/Vol] 0.80 mg/dL Normal 0.55-1.02 [facility] Comment on above: Performed By: #### C BC #### [facility] [address] [address] [address] Tara Jackson Globulin (S) [Mass/Vol] 4.3 g/dL Normal [facility] Comment on above: Performed By: #### C BC #### [facility] [address] [address] [address] Tara Jackson Glucose [Mass/Vol] 101 mg/dL Normal 74-106 [facility] Comment on above: Performed By: #### C BC #### [facility] [address] [place] [address] Dr. Tara Jackson Potassium [Moles/Vol] 4.2 mmol/L Normal 3.5-5.1 [facility] Comment on above: Performed By: #### C BC #### [facility] [address] [place] [address] Dr. Tara Jackson Protein [Mass/Vol] 7.5 g/dL Normal 6.4-8.2 [facility] Comment on above: Performed By: #### C BC #### [facility] [address] [place] [address] Dr. Tara Jackson Sodium [Moles/Vol] 136 mmol/L Normal 136-145 [facility] Comment on above: Performed By: #### C BC #### [facility] [address] [place] [address] Dr. Tara Jackson Urea nitrogen [Mass/Vol] 11.0 mg/dL Normal 6.4-19.3 [facility] Comment on above: Performed By: #### C BC #### [facility] [address] [place] [address] Dr. Tara Jackson Urea nitrogen/Creatinine [Mass ratio] 13.8 mg/mg Normal [facility] Comment on above: Performed By: #### C BC #### [facility] [address] [place] [address] Dr. Tara Jackson TSHon 09-25-2022 TSH 5.240 uIU/mL Critically high 0.516-4.130 [facility] Comment on above: Performed By: #### C BC #### [facility] [address] [place] [address] Dr. Tara Jackson Covid-19 PCR ([facility])on SARS-CoV-2 (COVID-19) RNA CHRISTIAN+probe Ql (Unsp spec) Not detected Normal NOT DETECTED [facility] Comment on above: Result Comment: This test is not yet approved or cleared by the [place] FDA. When there are no FDA-approved or cleared tests available, and other criteria are met, FDA can make tests available under an emergency access mechanism called an Emergency Use Authorization (EUA). The EUA for this test is supported by the [place] of Health and Human Service's (HHS's) declaration [...] SARS-CoV-2. Performed By: #### C VDTBH #### [facility] [address] [place] [address] Dr. Tara Jackson INFLUENZA A AND B AGon 09-11 INFLUANEGH SEE BELOW Normal [facility] Comment on above: Result Comment: Nega tive for Flu A protein angiten. Infection due to Flu A cannot be ruled out. Flu A angiten in the sample may be below the detection limit of the test. Performed By: #### I NFLUAB #### [facility] [address] [place] [address] Dr. Tara Jackson INFLUBNEGH SEE BELOW Normal [facility] Comment on above: Result Comment: Nega tive for Flu B protein antigen. Infection due to Flu B cannot be ruled out. Flu B antigen in the sample may be below the detection limit of the test. Performed By: #### I NFLUAB #### [facility] [address] [place] [address] Dr. Tara Jackson INFLUENZA A AG Negative Normal NEGATIVE SEE COMMENT [facility] Comment on above: Performed By: #### I NFLUAB #### [facility] [address] [place] [address] Dr. Tara Jackson INFLUENZA B AG Negative Normal NEGATIVE SEE COMMENT [facility] Comment on above: Performed By: #### I NFLUAB #### [facility] [address] [place] [address] Dr. Tara Jackson Covid-19 PCR ([facility])on SARS-CoV-2 (COVID-19) RNA CHRISTIAN+probe Ql (Unsp spec) Not detected Normal NOT DETECTED [facility] Comment on above: Result Comment: When [...] for this test is supported by the [place] Health and Human Service's declaration that [...] used). Performed By: #### C VDTBH #### [facility] [address] [place] [address] Dr. Tara Jackson INFLUENZA A AND B AGon 08-05 INFLUANEGH SEE BELOW Normal [facility] Comment on above: Result Comment: Nega tive for Flu A protein angiten. Infection due to Flu A cannot be ruled out. Flu A angiten in the sample may be below the detection limit of the test. Performed By: #### I NFLUAB #### [facility] [address] [place] [address] Dr. Tara Jackson [facility] SEE BELOW Normal [facility] Comment on above: Result Comment: Nega tive for Flu B protein antigen. Infection due to Flu B cannot be ruled out. Flu B antigen in the sample may be below the detection limit of the test. Performed By: #### I NFLUAB #### [facility] [address] [place] [address] Dr. Tara Jackson INFLUENZA A AG Negative Normal NEGATIVE SEE COMMENT [facility] Comment on above: Performed By: #### I NFLUAB #### [facility] [address] [place] [address] Dr. Tara Jackson INFLUENZA B AG Negative Normal NEGATIVE SEE COMMENT [facility] Comment on above: Performed By: #### I NFLUAB #### [facility] [address] [place] [address] Dr. Tara Jackson Albumin [Mass/volume] in Ser um or PlasmaOrdered By: Claudia Ellington on 07-31-2022 Albumin [Mass/Vol] 3.2 g/dL 3.2-5.5 [facility] Basophils Auto (Bld) [#/Vol] Ordered By: Claudia Ellington on 07-31-2022 Basophils (Bld) [#/Vol] 0.0 10*3/uL 0.0-0.1 [facility] Basophils/100 WBC Auto (Bld) Ordered By: Claudia Ellington on 07-31-2022 Basophils/100 WBC (Bld) 0.4 % . [facility] Cholesterol [Mass/volume] in Serum or PlasmaOrdered By: Claudia Ellington on 07-31-2022 Cholesterol [Mass/Vol] 264 mg/dL 140-200 [facility] Comment on above: Chol less than 200 m g/dl low riskChol 201-239 mg/dl borderline riskChol 240 mg/dl and greater high risk Cholesterol in LDL Calc [Mas s/Vol]Ordered By: Claudia Ellington on 07-31-2022 Cholesterol in LDL [Mass/Vol] 168 mg/dL 0-100 [facility] Comment on above: LDL ATP III CLASSIFI CATIONLDL less than 100 mg/dL OptimalLDL 100-129 mg/dL Near or above optimalLDL 130-159 mg/dL Borderline highLDL 160-189 mg/dL HighLDL greater than 189 mg/dL Very high Cholesterol in VLDL Calc [Ma ss/Vol]Ordered By: Claudia Ellington on 07-31-2022 Cholesterol in VLDL [Mass/Vol] 17 mg/dL [facility] Creatinine and Glomerular fi ltration rate.predicted panel (S/P/Bld)Ordered By: Claudia Ellington on 07-31-2022 Creatinine [Mass/Vol] 0.87 mg/dL 0.44-1.03 [facility] Eosinophils Auto (Bld) [#/Vo l]Ordered By: Claudia Ellington on 07-31-2022 Eosinophils (Bld) [#/Vol] 0.0 10*3/uL 0.0-0.7 [facility] Eosinophils/100 WBC Auto (Bl d)Ordered By: Claudia Ellington on 07-31-2022 Eosinophils/100 WBC (Bld) 0.5 % . [facility] Erythrocyte distribution wid th Auto (RBC) [Ratio]Ordered By: Claudia Ellington on 07-31-2022 Erythrocyte distribution width (RBC) [Ratio] 13.2 % 11.9-15.3 [facility] Estimated glomerular filtrat ion rate (GFR) non- AmericanOrdered By: Claudia Ellington on 07-31-2022 GFR/1.73 sq M.predicted among non-blacks MDRD (S/P/Bld) [Vol rate/Area] N/A [facility] Globulin Calc (S) [Mass/Vol] Ordered By: Claudia Ellington on 07-31-2022 Globulin (S) [Mass/Vol] 3.3 g/dL [facility] Glucose mean value [Mass/vol ume] in Blood Estimated from glycated hemoglobinOrdered By: Claudia Ellnigton on 07-31-2022 Average glucose Estimated from glycated hemoglobin (Bld) [Mass/Vol] 114 mg/dL [facility] Hematocrit Auto (Bld) [Volum e fraction]Ordered By: Claudia Ellington on 07-31-2022 Hematocrit (Bld) [Volume fraction] 38.5 % 36.0-46.0 [facility] Hemoglobin A1c percentageOrd ered By: Claudia Ellington on 07-31-2022 HbA1c (Bld) [Mass fraction] 5.6 % 4.3-5.6 [facility] Comment on above: Increased risk for d iabetes: 5.7 - 6.4diabetes: >6.4glycemic control for adults with diabetes: <7.0 Hemoglobin [Mass/volume] in BloodOrdered By: Claudia Ellington on 07-31-2022 Hemoglobin (Bld) [Mass/Vol] 12.7 g/dL 12.0-16.0 [facility] Iron [Mass/volume] in Serum or PlasmaOrdered By: Claudia Ellington on 07-31-2022 Iron [Mass/Vol] 74 ug/dL 40-150 [facility] Leukocytes [#/volume] correc gamaliel for nucleated erythrocytes in Blood by Automated counOrdered By: Claudia Ellington on 07-31-2022 WBC corrected for nucl RBC Auto (Bld) [#/Vol] 8.3 10*3/uL 4.5-13.5 [facility] Lymphocytes Auto (Bld) [#/Vo l]Ordered By: Claudia Ellington on 07-31-2022 Lymphocytes (Bld) [#/Vol] 2.3 10*3/uL 1.20-4.8 [facility] Lymphocytes/100 WBC Auto (Bl d)Ordered By: Claudia Ellington on 07-31-2022 Lymphocytes/100 WBC (Bld) 27.9 % . [facility] MCH Auto (RBC) [Entitic mass ]Ordered By: Claudia Ellington on 07-31-2022 MCH (RBC) [Entitic mass] 28.4 pg 25.0-35.0 [facility] MCHC Auto (RBC) [Mass/Vol]Or dered By: Claudia Ellington on 07-31-2022 MCHC (RBC) [Mass/Vol] 32.9 g/dL 31.0-37.0 [facility] MCV Auto (RBC) [Entitic vol] Ordered By: Claudia Ellington on 07-31-2022 MCV (RBC) [Entitic vol] 86.6 fL 78-102 [facility] Monocytes Auto (Bld) [#/Vol] Ordered By: Claudia Ellington on 07-31-2022 Monocytes (Bld) [#/Vol] 0.4 10*3/uL 0.1-1.00 [facility] Monocytes/100 WBC Auto (Bld) Ordered By: Claudia Ellington on 07-31-2022 Monocytes/100 WBC (Bld) 5.0 % . [facility] Neutrophils Auto (Bld) [#/Vo l]Ordered By: Claudia Ellington on 07-31-2022 Neutrophils (Bld) [#/Vol] 5.5 10*3/uL 1.2-7.7 [facility] Neutrophils/100 WBC Auto (Bl d)Ordered By: Claudia Ellington on 07-31-2022 Neutrophils/100 WBC (Bld) 66.2 % . [facility] No Panel InformationOrdered By: Claudia Ellington on 07-31-2022 Estimated GFR () N/A [facility] Creatinine Clearance (Chem N/A [facility] Nucleated erythrocytes [Pres ence] in Blood by Automated countOrdered By: Claudia Ellington on 07-31-2022 Nucleated RBC Auto Ql (Bld) 0.1 /100{WBC} 0-0.5 [facility] Platelet mean volume Auto (B ld) [Entitic vol]Ordered By: Claudia Ellington on 07-31-2022 Platelet mean volume (Bld) [Entitic vol] 7.5 fL 6.3-10.7 [facility] Platelets Auto (Bld) [#/Vol] Ordered By: Claudia Ellington on 07-31-2022 Platelets (Bld) [#/Vol] 420 10*3/uL 150-450 [facility] Protein [Mass/volume] in Ser um or PlasmaOrdered By: Claudia Ellington on 07-31-2022 Protein [Mass/Vol] 6.5 g/dL 6.1-7.9 [facility] RBC Auto (Bld) [#/Vol]Ordere d By: Claudia Ellington on 07-31-2022 RBC (Bld) [#/Vol] 4.45 10*6/uL 4.10-5.10 [facility] Serum or plasma alanine lucas otransferase measurement without P-5'-P (enzymatic activiOrdered By: Claudia Ellington on 07-31-2022 ALT No additional P-5'-P [Catalytic activity/Vol] 12 U/L 10-60 [facility] Serum or plasma albumin/glob ulin mass ratioOrdered By: Claudia Ellington on 07-31-2022 Albumin/Globulin [Mass ratio] 1.0 {ratio} [facility] Serum or plasma alkaline rosmery sphatase measurement (enzymatic activity/volume)Ordered By: Claudia Ellington on 07-31-2022 ALP [Catalytic activity/Vol] 49 U/L 32-92 [facility] Serum or plasma anion gap de terminationOrdered By: Claudia Ellington on 07-31-2022 Anion gap [Moles/Vol] 11.2 mmol/L 6.0-15.0 [facility] Serum or plasma aspartate am inotransferase measurement (enzymatic activity/volume)Ordered By: Claudia Ellington on 07-31-2022 AST [Catalytic activity/Vol] 13 U/L 10-42 [facility] Serum or plasma calcium trish urement (mass/volume)Ordered By: Claudia Ellington on 07-31-2022 Calcium [Mass/Vol] 9.2 mg/dL 8.2-10.2 [facility] Serum or plasma chloride klarissa surement (moles/volume)Ordered By: Claudia Ellington on 07-31-2022 Chloride [Moles/Vol] 104 mmol/L 95-114 [facility] Serum or plasma glucose trish urement (mass/volume)Ordered By: Claudia Ellington on 07-31-2022 Glucose [Mass/Vol] 96 mg/dL 70-100 [facility] Comment on above: ADA recommended refe rence rangeRandom Glucose Reference Range is dependent on time and content of last meal. Glucose of more than 200 mg/dL in a nonstressed, ambulatory subject supports the diagnosis of Diabetes Mellitus. Serum or plasma high density lipoprotein (HDL) cholesterol measurementOrdered By: Claudia Ellington on 07-31-2022 Cholesterol in HDL [Mass/Vol] 78 mg/dL 35-85 [facility] Comment on above: HDL CHOL ATP-III CLA SSIFICATION Cardiovascular RiskHDL > or equal to 60 mg/dL LOWHDL < 40 mg/dL HIGH Serum or plasma potassium me asurement (moles/volume)Ordered By: Claudia Ellington on 07-31-2022 Potassium [Moles/Vol] 4.0 mmol/L 3.5-5.1 [facility] Serum or plasma sodium measu rement (moles/volume)Ordered By: Claudia Ellington on 07-31-2022 Sodium [Moles/Vol] 137 mmol/L 138-145 [facility] Serum or plasma total biliru bin measurement (mass/volume)Ordered By: Claudia Ellington on 07-31-2022 Bilirubin [Mass/Vol] 0.5 mg/dL 0.3-1.2 [facility] Serum or plasma total carbon dioxide measurement (moles/volume)Ordered By: Claudia Ellington on 07-31-2022 CO2 [Moles/Vol] 25.8 mmol/L 22.0-30.0 [facility] Serum or plasma total choles terol/high density lipoprotein (HDL) cholesterol mass ratOrdered By: Claudia Ellington on 07-31-2022 Cholesterol.total/Chol esterol in HDL [Mass ratio] 3.4 {ratio} <5.0 [facility] Serum or plasma urea nitroge n measurement (mass/volume)Ordered By: Claudia Ellington on 07-31-2022 Urea nitrogen [Mass/Vol] 18 mg/dL 9- [facility] TSH DL <= 0.005 mIU/L QnOrde red By: Claudia Ellington on 07-31-2022 TSH Qn 3.47 m[IU]/L 0.45-5.33 [facility] Thyroxine (T4) free [Mass/vo lume] in Serum or PlasmaOrdered By: Claudia Ellington on 07-31-2022 Free T4 [Mass/Vol] 1.03 ng/dL 0.61-1.12 [facility] Triglyceride [Mass/volume] i n Serum or PlasmaOrdered By: Claudia Ellington on 07-31-2022 Triglyceride [Mass/Vol] 89 mg/dL 35-149 [facility] Comment on above: TRIG ATP III CLASSIF ICATIONTRIG less than 150 mg/dL NormalTRIG 150-199 mg/dL Borderline highTRIG 200-500 mg/dL High TRIG greater than 500 mg/dL Very highStandard traceable to the Center for Disease Conrtrol and Prevention (CDC) test method. WBC Auto (Bld) [#/Vol]Ordere d By: Claudia Ellington on 07-31-2022 WBC (Bld) [#/Vol] 8.3 10*3/uL 4.5-13.5 [facility] Covid-19 PCR ([facility])on 07-04 SARS-CoV-2 (COVID-19) RNA CHRISTIAN+probe Ql (Unsp spec) Not detected Normal NOT DETECTED [facility] Comment on above: Result Comment: When [...] for this test is supported by the [place] of Health and Human Service's declaration that [...] used). Performed By: #### C VDTBH #### [facility] [address] [place] [address] Dr. Tara Jackson INFLUENZA A AND B AGon 07-23 INFLUENZA A AG Negative Normal NEGATIVE SEE COMMENT [facility] Comment on above: Performed By: #### I NFLUAB #### [facility] [address] [address] [address] Tara Jackson INFLUENZA B AG Negative Normal NEGATIVE SEE COMMENT [facility] Comment on above: Performed By: #### I NFLUAB #### [facility] [address] [address] [address] Tara Jackson INTERNAL CONTROLS Within Normal Limits Normal Wi thin Normal Limits [facility] Comment on above: Performed By: #### I NFLUAB #### [facility] [address] [address] [address] Tara Jackson RSVon 07-23-2022 RSV AG Negative Normal NEGATIVE [facility] Comment on above: Performed By: #### R SV #### [facility] [address] [address] [address] Tara Jackson CHEMISTRYOrdered By: SYSTEM SYSTEM [...] 10 - 20 [facility] 12 SARS-CoV-2 (COVID-19) RNA CHRISTIAN+probe Ql (Unsp spec) Not detected Normal NOT DETECTED [facility] Comment on above: Result Comment: This test is not yet approved or cleared by the [place] FDA. When there are no FDA-approved or cleared tests available, and other criteria are met, FDA can make tests available under an emergency access mechanism called an Emergency Use Authorization (EUA). The EUA for this test is supported by the [place] of Health and Human Service's (HHS's) declaration [...] consistent with SARS-CoV-2. Performed By: #### C [facility] #### [facility] [address] [place] [address] Dr. Tara Jackson HEMATOLOGYOrdered By: SYSTEM SYSTEM [...] 33.1 g/dL Normal 32.0 - 36.0 gm/dL [facility] HemeAutoSS MCV (RBC) [Entitic vol] 85.5 fL Normal 78.0 - 95.0 fL [facility] HemeAutoSS Platelet mean volume (Bld) [Entitic vol] 7.2 fL Normal 6.0 - 9.5 fL [facility] HemeAutoSS Platelets (Bld) [#/Vol] 304.0 E9/L Normal 150.0 - 450.0 E9/L [facility] HemeAutoSS RBC (Bld) [#/Vol] 4.1 E12/L Normal 4.1 - 5.3 E12/L [facility] HemeAutoSS WBC corrected for nucl RBC Auto (Bld) [#/Vol] 8.7 E9/L Normal 4.0 - 10.5 E9/L [facility] HemeAutoSS INFLUENZA A AND B AGon 07-08 [facility] SEE BELOW Normal [facility] Comment on above: Result Comment: Nega tive for Flu A protein angiten. Infection due to Flu A cannot be ruled out. Flu A angiten in the sample may be below the detection limit of the test. Performed By: #### I NFLUAB #### [facility] [address] [place] [address] Dr. Tara Jackson INFLUBNEGH SEE BELOW Normal [facility] Comment on above: Result Comment: Nega tive for Flu B protein antigen. Infection due to Flu B cannot be ruled out. Flu B antigen in the sample may be below the detection limit of the test. Performed By: #### I NFLUAB #### [facility] [address] [address] [address] Tara Jackson INFLUENZA A AG Negative Normal NEGATIVE SEE COMMENT [facility] Comment on above: Performed By: #### I NFLUAB #### [facility] [address] [address] [address] Tara Jackson INFLUENZA B AG Negative Normal NEGATIVE SEE COMMENT [facility] Comment on above: Performed By: #### I NFLUAB #### [facility] [address] [place] [address] Dr. Tara Jackson INTERNAL CONTROLS Within Normal Limits Normal Wi thin Normal Limits [facility] Comment on above: Performed By: #### I NFLUAB #### [facility] [address] [place] [address] Dr. Tara Jackson MICRO OTHER TESTSOrdered By: Chuck Jackson on 07-08-2022 S. pyogenes Ag IA.rapid Ql (Throat) Negative (07/08/22 8:55 PM) Normal Negative [facility] Man Sero SEROLOGYOrdered By: Chuck harrison on 07-08-2022 HCG.beta subunit (U) [Moles/Vol] Negative Normal [facility] Man Sero URINALYSISOrdered By: Chuck hall on 07-08-2022 Bilirubin Ql (U) Negative (07/08/22 8:50 PM) Normal Negative [facility] UA Auto SS Clarity (U) Clear (07/08/22 8:50 PM) Normal Clear [facility] UA Auto SS Color (U) Yellow (07/08/22 8:50 PM) Normal Yellow [facility] UA Auto SS Epithelial cells.squamous LM.HPF (Urine sed) [#/Area] 0-2 /HPF Normal 0-2/HPF [facility] UA Auto SS Glucose Test strip (U) [Mass/Vol] Negative (07/08/22 8:50 PM) Normal Negative [facility] UA Auto SS Hemoglobin Ql (U) Negative (07/08/22 8:50 PM) Normal Negative [facility] UA Auto SS Ketones (U) [Mass/Vol] Negative (07/08/22 8:50 PM) Normal Negative [facility] UA Auto SS [place].plasma/[place] .RBC (Bld) [Mass ratio] 0-3 /HPF Normal [...] Desc Clean Catch (07/08/22 8:50 PM) Normal [facility] UA Auto SS Urobilinogen Qn (U) [id number] {Ed'U}/dL Normal 0.0 - 1.0 EU/dL [facility] UA Auto SS WBC Auto Ql (U) Negative (07/08/22 8:50 PM) Normal Negative [facility] UA Auto SS WBC LM.HPF (Urine sed) [#/Area] 0-5 /HPF Normal 0-5/HPF [facility] UA Auto SS CHEMISTRYOrdered By: SYSTEM SYSTEM on 07-02-2022 Anion gap [Moles/Vol] 10 mmol/L Normal 6 - 16 mEq/L [facility] Remisol Calcium [Mass/Vol] 8.7 mg/dL Low 8.9 - 11. 1 mg/dL [facility] Remisol Chloride [Moles/Vol] 100 mmol/L Low 101 [...] 132 mmol/L Low 135 - 145 mmol/L [facility] Remisol Urea nitrogen [Mass/Vol] 14 mg/dL Normal 5 - 21 mg/dL [facility] Remisol Urea nitrogen/Creatinine [Mass ratio] 23 mg/mg High 10 - 20 [facility] Remisol CHEMISTRYOrdered By: Lab ROP User on 07-02-2022 Glucose [Mass/Vol] 100 mg/dL High 55 - 99 mg/dL [facility] POC Subsection Comment on above: Result Comment: Shanique percy Meter POC Device SN [id number] Invalid Interpretation Code [facility] POC Subsection POC User ID [id number] Invalid Interpretation Code [facility] POC Subsection POC Username CAL NOLASCO Invalid Interpretation Code [facility] POC Subsection HEMATOLOGYOrdered By: SYSTEM SYSTEM on [...] 13.5 % Normal 11.5 - 14.0 % [facility] HemeAutoSS Hematocrit (Bld) [Volume fraction] 35.4 % Low 36.0 - 47.0 % [facility] HemeAutoSS Hemoglobin (Bld) [Mass/Vol] 12.6 g/dL Normal 12.0 - 15.0 gm/dL [facility] HemeAutoSS MCH (RBC) [Entitic mass] 29.4 pg Normal 26.0 - 32.0 pg [facility] HemeAutoSS MCHC (RBC) [Mass/Vol] 35.7 g/dL Normal 32.0 - 36.0 gm/dL [facility] HemeAutoSS MCV (RBC) [Entitic vol] 82.4 fL Normal 78.0 - 95.0 fL [facility] HemeAutoSS Platelet mean volume (Bld) [Entitic vol] 7.1 fL Normal 6.0 - 9.5 fL [facility] HemeAutoSS Platelets (Bld) [#/Vol] 303.0 E9/L Normal 150.0 - 450.0 E9/L [facility] HemeAutoSS RBC (Bld) [#/Vol] 4.3 E12/L Normal 4.1 - 5.3 E12/L [facility] HemeAutoSS WBC corrected for nucl RBC Auto (Bld) [#/Vol] 11.5 E9/L High 4.0 - 10.5 E9/L [facility] HemeAutoSS INFLUENZA A AND B AGon 06-25 [facility] SEE BELOW Normal [facility] Comment on above: Result Comment: Nega tive for Flu A protein angiten. Infection due to Flu A cannot be ruled out. Flu A angiten in the sample may be below the detection limit of the test. Performed By: #### C VDTB #### [facility] [address] [place] [address] Dr. Tara Jackson [facility] SEE BELOW Normal [facility] Comment on above: Result Comment: Nega tive for Flu B protein antigen. Infection due to Flu B cannot be ruled out. Flu B antigen in the sample may be below the detection limit of the test. Performed By: #### C VDTBH #### [facility] [address] [place] [address] Dr. Tara Jackson INFLUENZA A AG Negative Normal NEGATIVE SEE COMMENT [facility] Comment on above: Performed By: #### C VDTBH #### [facility] [address] [place] [address] Dr. Tara Jackson INFLUENZA B AG Negative Normal NEGATIVE SEE COMMENT [facility] Comment on above: Performed By: #### C VDTBH #### [facility] [address] [address] [address] Tara Jackson INTERNAL CONTROLS Within Normal Limits Normal Wi thin Normal Limits [facility] Comment on above: Performed By: #### C VDTBH #### [facility] [address] [address] [address] Tara Jackson Covid-19 PCR (CVDTBH)on 06-03 SARS-CoV-2 (COVID-19) RNA CHRISTIAN+probe Ql (Unsp spec) Not detected Normal NOT DETECTED [facility] Comment on above: Result Comment: This test is not yet approved or cleared by the [place] FDA. When there are no FDA-approved or cleared tests available, and other criteria are met, FDA can make tests available under an emergency access mechanism called an Emergency Use Authorization (EUA). The EUA for this test is supported by the [place] of Health and Human Service's (HHS's) declaration [...] SARS-CoV-2. Performed By: #### I NFLUAB #### [facility] [address] [place] [address] Dr. Tara Jackson Covid-19 PCR (CVDTBH)on 05-04 SARS-CoV-2 (COVID-19) RNA CHRISTIAN+probe Ql (Unsp spec) Not detected Normal NOT DETECTED [facility] Comment on above: Result Comment: This test is not yet approved or cleared by the [place] FDA. When there are no FDA-approved or cleared tests available, and other criteria are met, FDA can make tests available under an emergency access mechanism called an Emergency Use Authorization (EUA). The EUA for this test is supported by the [place] of Health and Human Service's (HHS's) declaration [...] SARS-CoV-2. Performed By: #### I NFLUAB #### [facility] [address] [place] [address] Dr. Tara Jackson AMYLASEon 04-26-2022 Amylase [Catalytic activity/Vol] 17 U/L Critically low 25-115 [facility] Comment on above: Performed By: #### I NFLUAB #### [facility] [address] [place] [address] Dr. Tara Jackson CBC AUTO DIFFon 04-26-2022 BASO # 0.0 103/ul Normal 0.0-0.1 [facility] Comment on above: Performed By: #### C VDTBH #### [facility] [address] [place] [address] Dr. Tara Jackson Basophils/100 WBC (Bld) 0.7 % Normal 0.2-2.0 [facility] Comment on above: Performed By: #### C VDTBH #### [facility] [address] [place] [address] Dr. Tara Jackson EO # 0.3 103/ul Normal 0.0-0.7 [facility] Comment on above: Performed By: #### C VDTBH #### [facility] [address] [place] [address] Dr. Tara Jackson Eosinophils/100 WBC (Bld) 5.1 % Normal 0.9-7.0 [facility] Comment on above: Performed By: #### C VDTBH #### [facility] [address] [place] [address] Dr. Tara Jackson Erythrocyte distribution width (RBC) [Ratio] 13.5 % Normal 11.0-15.0 [facility] Comment on above: Performed By: #### C VDTBH #### [facility] [address] [place] [address] Dr. Tara Jackson Hematocrit (Bld) [Volume fraction] 37.9 % Normal 36.0-48.0 [facility] Comment on above: Performed By: #### C VDTBH #### [facility] [address] [place] [address] Dr. Tara Jackson Hemoglobin (Bld) [Mass/Vol] 12.4 g/dL Normal 12.0-16.0 [facility] Comment on above: Performed By: #### C VDTBH #### [facility] [address] [place] [address] Dr. Tara Jackson IG # 0.01 10e3/ul Normal 0.00-0.03 [facility] Comment on above: Performed By: #### C VDTBH #### [facility] [address] [place] [address] Dr. Tara Jackson IG % 0.2 % Normal 0.0-0.5 [facility] Comment on above: Performed By: #### C VDTBH #### [facility] [address] [place] [address] Dr. Tara Jackson LYMPH # 1.6 103/ul Normal 1.2-3.8 [facility] Comment on above: Performed By: #### C VDTBH #### [facility] [address] [place] [address] Dr. Tara Jackson Lymphocytes/100 WBC (Bld) 28.8 % Normal 20.5-60.0 [facility] Comment on above: Performed By: #### C VDTBH #### [facility] [address] [place] [address] Dr. Tara Jackson MANUAL DIFF REQ NO Normal [facility] Comment on above: Performed By: #### C VDTBH #### [facility] [address] [place] [address] Dr. Tara Jackson MCH (RBC) [Entitic mass] 28.1 pg Normal 26.7-34.0 [facility] Comment on above: Performed By: #### C VDTBH #### [facility] [address] [place] [address] Dr. Tara Jackson MCHC (RBC) [Mass/Vol] 32.7 g/dL Normal 29.9-35.2 [facility] Comment on above: Performed By: #### C VDTBH #### [facility] [address] [place] [address] Dr. Tara Jackson MCV (RBC) [Entitic vol] 85.7 fL Normal 79.1-95.6 [facility] Comment on above: Performed By: #### C VDTBH #### [facility] [address] [place] [address] Dr. Tara Jackson MONO # 0.3 103/ul Normal 0.3-0.8 [facility] Comment on above: Performed By: #### C VDTBH #### [facility] [address] [place] [address] Dr. Tara Jackson Monocytes/100 WBC (Bld) 6.2 % Normal 1.7-12.0 [facility] Comment on above: Performed By: #### C VDTBH #### [facility] [address] [place] [address] Dr. Tara Jackson NEUT # 3.2 103/ul Normal 1.4-6.5 [facility] Comment on above: Performed By: #### C VDTBH #### [facility] [address] [place] [address] Dr. Tara Jackson Neutrophils/100 WBC (Bld) 59.0 % Normal 43.0-75.0 [facility] Comment on above: Performed By: #### C VDTBH #### [facility] [address] [place] [address] Dr. Tara Jackson Platelet mean volume (Bld) [Entitic vol] 9.7 fL Normal 9.5-13.5 [facility] Comment on above: Performed By: #### C VDTBH #### [facility] [address] [place] [address] Dr. Tara Jackson PLT 382 103/ul Normal 150-450 [facility] Comment on above: Performed By: #### C VDTBH #### [facility] [address] [place] [address] Dr. Tara Jackson RBC 4.42 106/ul Normal 3.40-5.30 [facility] Comment on above: Performed By: #### C VDTBH #### [facility] [address] [place] [address] Dr. Tara Jackson WBC 5.5 103/ul Normal 4.0-11.0 [facility] Comment on above: Performed By: #### C VDTBH #### [facility] [address] [place] [address] Dr. Tara Jackson IRONon 04-26-2022 Iron [Mass/Vol] 55.0 ug/dL Normal 50.0-170.0 [facility] Comment on above: Performed By: #### C VDTBH #### [facility] [address] [place] [address] Dr. Tara Jackson LIPASEon 04-26-2022 Lipase [Catalytic activity/Vol] 191.0 U/L Normal 73.0-393.0 [facility] Comment on above: Performed By: #### I NFLUAB #### [facility] [address] [place] [address] Dr. Tara Jackson PREG QUANT HCGon 04-26-2022 HCG QUANT <1 Normal [facility] Comment on above: Performed By: #### I NFLUAB #### [facility] [address] [place] [address] Dr. Tara Jackson HCG RANGE SEE BELOW Normal [facility] Comment on above: Result Comment: 5-50 0.2-1 WEEK 50-500 1-2 WEEKS 100-5,000 2-3 WEEKS 500-10,000 3-4 WEEKS 1,000-50,000 4-5 WEEKS 10,000-100,000 5-6 WEEKS 15,000-200,000 6-8 WEEKS 10,000-100,000 2-3 MONTHS Performed By: #### I NFLUAB #### [facility] [address] [place] [address] Dr. Tara Jackson PROF 14(COMP METB)on 022 Albumin [Mass/Vol] 3.0 g/dL Critically low 3.4-5.0 [facility] Comment on above: Performed By: #### I NFLUAB #### [facility] [address] [place] [address] Dr. Tara Jackson Albumin/Globulin [Mass ratio] 0.7 {ratio} Normal [facility] Comment on above: Performed By: #### I NFLUAB #### [facility] [address] [place] [address] Dr. Tara Jackson ALP [Catalytic activity/Vol] 58 U/L Critically low 65-260 [facility] Comment on above: Performed By: #### I NFLUAB #### [facility] [address] [place] [address] Dr. Tara Jackson ALT [Catalytic activity/Vol] 19 U/L Normal 14-59 [facility] Comment on above: Performed By: #### I NFLUAB #### [facility] [address] [place] [address] Dr. Tara Jackson Anion gap [Moles/Vol] 11.1 mmol/L Normal [facility] Comment on above: Performed By: #### I NFLUAB #### [facility] [address] [place] [address] Dr. Tara Jackson AST [Catalytic activity/Vol] 13 U/L Critically low 15-37 [facility] Comment on above: Performed By: #### I NFLUAB #### [facility] [address] [place] [address] Dr. Tara Jackson Bilirubin [Mass/Vol] 0.3 mg/dL Normal 0.2-1.0 [facility] Comment on above: Performed By: #### I NFLUAB #### [facility] [address] [place] [address] Dr. Tara Jackson Calcium [Mass/Vol] 8.7 mg/dL Normal 8.5-10.1 [facility] Comment on above: Performed By: #### I NFLUAB #### [facility] [address] [place] [address] Dr. Tara Jackson Chloride [Moles/Vol] 103 mmol/L Normal 98-107 [facility] Comment on above: Performed By: #### I NFLUAB #### [facility] [address] [place] [address] Dr. Tara Jackson CO2 [Moles/Vol] 25.0 mmol/L Normal 21.0-32.0 [facility] Comment on above: Performed By: #### I NFLUAB #### [facility] [address] [place] [address] Dr. Tara Jackson Creatinine [Mass/Vol] 0.88 mg/dL Normal 0.55-1.02 [facility] Comment on above: Performed By: #### I NFLUAB #### [facility] [address] [place] [address] Dr. Tara Jackson Globulin (S) [Mass/Vol] 4.6 g/dL Normal [facility] Comment on above: Performed By: #### I NFLUAB #### [facility] [address] [place] [address] Dr. Tara Jackson Glucose [Mass/Vol] 91 mg/dL Normal 74-106 [facility] Comment on above: Performed By: #### I NFLUAB #### [facility] [address] [place] [address] Dr. Tara Jackson Potassium [Moles/Vol] 4.1 mmol/L Normal 3.5-5.1 [facility] Comment on above: Performed By: #### I NFLUAB #### [facility] [address] [place] [address] Dr. Tara Jackson Protein [Mass/Vol] 7.6 g/dL Normal 6.4-8.2 [facility] Comment on above: Performed By: #### I NFLUAB #### [facility] [address] [address] [address] Tara Jackson Sodium [Moles/Vol] 135 mmol/L Critically low 136-145 [facility] Comment on above: Performed By: #### I NFLUAB #### [facility] [address] [address] [address] Tara Jackson Urea nitrogen [Mass/Vol] 9.0 mg/dL Normal 6.4-19.3 [facility] Comment on above: Performed By: #### I NFLUAB #### [facility] [address] [address] [address] Tara Jackson Urea nitrogen/Creatinine [Mass ratio] 10.2 mg/mg Normal [facility] Comment on above: Performed By: #### I NFLUAB #### [facility] [address] [address] [address] Tara Jackson CHEMISTRYOrdered By: SYSTEM SYSTEM on 04-04-2022 Cholesterol [Mass/Vol] 210 mg/dL High 120 - 200 mg/dL [facility] Remisol Cholesterol in HDL [Mass/Vol] 45 mg/dL Invalid Interpretation Code [facility] Remisol Cholesterol in LDL [Mass/Vol] 159 mg/dL High <=129mg/dL [facility] Remisol Cholesterol in VLDL [Mass/Vol] 20 mg/dL Normal 7 - 40 mg/dL [facility] Remisol Glucose post fast [Mass/Vol] 100 mg/dL High 55 - 99 mg/dL [facility] Triglyceride [Mass/Vol] 101 mg/dL Normal <=149mg/dL [facility] Remisol CHEMISTRYOrdered By: Valeriy Rivas on 04-04-2022 HbA1c (Bld) [Mass fraction] 5.3 % Normal <=5.9% [facility] ChemAutoSS Covid-19 PCR (CVDTBH)on 03-03 SARS-CoV-2 (COVID-19) RNA CHRISTIAN+probe Ql (Unsp spec) Not detected Normal NOT DETECTED [facility] Comment on above: Result Comment: This test is not yet approved or cleared by the [place] FDA. When there are no FDA-approved or cleared tests available, and other criteria are met, FDA can make tests available under an emergency access mechanism called an Emergency Use Authorization (EUA). The EUA for this test is supported by the [place] of Health and Human Service's (HHS's) declaration [...] SARS-CoV-2. Performed By: #### I NFLUAB #### [facility] [address] [place] [address] Dr. Tara Jackson Covid-19 PCR [facility]on SARS-CoV-2 (COVID-19) RNA CHRISTIAN+probe Ql (Unsp spec) Not detected Normal NOT DETECTED [facility] Comment on above: Result Comment: This test is not yet approved or cleared by the [place] FDA. When there are no FDA-approved or cleared tests available, and other criteria are met, FDA can make tests available under an emergency access mechanism called an Emergency Use Authorization (EUA). The EUA for this test is supported by the [place] of Health and Human Service's (HHS's) declaration [...] SARS-CoV-2. Performed By: #### I NFLUAB #### [facility] [address] [place], [place] [address] Dr. Tara Jackson Covid-19 PCR ([facility])on 01-01 SARS-CoV-2 (COVID-19) RNA CHRISTIAN+probe Ql (Unsp spec) Not detected Normal NOT DETECTED [facility] Comment on above: Result Comment: This test is not yet approved or cleared by the [place] FDA. When there are no FDA-approved or cleared tests available, and other criteria are met, FDA can make tests available under an emergency access mechanism called an Emergency Use Authorization (EUA). The EUA for this test is supported by the [place] of Health and Human Service's (HHS's) declaration [...] SARS-CoV-2. Performed By: #### I NFLUAB #### [facility] [address] [place], [place] [id number] Dr. Tara Jackson SYMPTOMATIC COVID-19 ANTIGEN on 01-17-2022 EUA Statement SEE BELOW Normal [facility] Comment on above: Result Comment: This [...] sooner. Performed By: #### C VDAGS #### [facility] [address] [place] [address] Dr. Tara Jackson SARS-CoV-2 (COVID-19) RNA CHRISTIAN+probe Ql (Unsp spec) Negative Normal NEGATIVE [facility] Comment on above: Performed By: #### C VDAGS #### [facility] [address] [place] [address] Dr. Tara Jackson CHEMISTRYOrdered By: SYSTEM SYSTEM [...] 4.4 E12/L Normal 4.1 - 5.3 E12/L [facility] HemeAutoSS WBC corrected for nucl RBC Auto (Bld) [#/Vol] 6.5 E9/L Normal 4.0 - 10.5 E9/L [facility] HemeAutoSS MICRO OTHER TESTSOrdered By: Debby Cleveland on 12-04-2021 Rapid COV Int NEG Ctl Pass (12/04/21 11:18 PM) Normal [facility] Man Sero Rapid COV Int POS Ctl Pass (12/04/21 11:18 PM) Normal [facility] Man Sero SARS-CoV+SARS-CoV-2 (COVID-19) Ag IA.rapid Ql (Resp) Not Detected (12/04/21 11:18 PM) Normal Not Detected [facility] Man Sero SEROLOGYOrdered By: Debby Cleveland on 12-04-2021 Beta hCG Ql Negative (12/04/21 6:06 PM) Normal [facility] Man Sero Peds Pulmonary Medicine- Off ice [...] only phone number listed in the computer ([phone]) went straight to the mother's voicemail and it was not taking messages. Called back and requested to call another number - [phone] Today (10/24/2019) I did a telephone conference [...] Refills: yes Pharmacy: [facility] in [place] PCP: same 1 Amended By: Martina Bedolla; [...] = N; Sent To: [facility]/PHARMACY #6146 Asthma, moderate persistent, Chronic cough Renew: Cetirizine HCl - 10 MG Oral Tablet; TAKE 1 TABLET BY MOUTH DAILY Rx By: Martina Bedolla; Dispense: 0 Days ; #:1 X 30 Tablet Bottle; Refill: 3; For: Asthma, moderate persistent, Chronic cough; YANNA = N; Sent To: [facility]AC[facility] #6136 Non-allergic rhinitis Renew: Fluticasone Propionate 50 MCG/ACT Nasal Suspension; USE 2 SPRAYS IN EACH NOSTRIL ONCE DAILY Rx By: Martina Bedolla; Dispense: 0 Days ; #:1 X 16 GM Bottle; Refill: 6; For: Non-allergic rhinitis; YANNA = N; Sent To: [facility]/PHARMACY #6116 Signatures Electronically signed by : Martina Bedolla DO; Oct 26 2019 3:32PM EST (Author) Normal [facility]- Off ice Visiton 06-02-2019 [...] or you have questions about the plan ([phone]). Please call us if you are having [...] HPI Family/Social history update: no changes Refills: zachera ventolin Pharmacy: same PCP: same Flu vaccine?: [...] Behavior appropriate for age. Results/Data Asthma Action [id number] 01:32PMartina Barron Test NameResultFlagReference See Scanned DocumetSee Scanned Document Summary / No summary entered : No summary entered Documents attached : [facility] Action Plan - Martina Bedolla; Enc: [id number] - Appointment - Martina Bedolla - (Pediatric Pulmonology) (Result Document) Spirometry loops personally reviewed. Test done today shows: rejected Orders Asthma, moderate persistent Renew: Dulera 200-5 MCG/ACT Inhalation Aerosol; Inhale 2 puffs twice daily with a spacer Rx By: Martina Bedolla; Dispense: 0 Days ; #:1 X 13 GM Inhaler; Refill: 6;For: Asthma, moderate persistent; YANNA = N; Verified [facility]; Last Updated By: Venafi; 05/30/2019 3:29:40 PM Renew: Ventolin HFA 108 (90 Base) MCG/ACT Inhalation Aerosol Solution; Inhale 2-4 puffs every 4-6 hours as needed for cough, wheezing and shortness of breath and prior to exercise Rx By: Martina Bedolla; Dispense: 0 Days ; #:1 X 18 GM Inhaler; Refill: 6;For: Asthma, moderate persistent; YANNA = N; Verified Transmission to [id number]; Last Updated By: Venafi; 05/30/2019 3:29:35 PM Attending Note Attestation: Comments/Additional [...] Jun 01 2019 11:38PM EST (Author) [facility] Off ice Visiton 02-13-2019 [...] or you have questions about the plan ([phone]). Please call us if you are having [...] Plan; Status:Complete; Done: 26Jan2019 02:00PM Performed:In Office; Due:[id number]; Last Updated By:Monica Rowan; 01/26/2019 2:00:50 PM;Ordered; [...] Feb 13 2019 6:39PM EST (Author) [facility] Off ice Visiton 11-24-2018 [...] N; Verified Transmission to [facility][id number]; Last Updated By: Duarte Orta; 01/25/2018 2:29:37 [...] SPRAYS IN EACH NOSTRIL ONCE DAILY; Therapy: [id number] to (Last Rx:02Sep2018) Requested for: 02Sep2018 Ordered Rx By: Martina Bedolla; Dispense: 0 Days ; #:1 X 16 GM Bottle; Refill: 5;For: Non-allergic rhinitis; YANNA = N; Print Rx Ibuprofen 800 MG Oral Tablet; Therapy: 26Jan2018 to Recorded Dispense: 20 Days ; #:60; Refill: 0; YANNA = N; Record; Last Updated By: Arminda Linda; 03/18/2018 2:27:47 PM 08/22 1-20 MG-MCG Oral Tablet; Therapy: [id number] to Recorded Dispense: 28 Days ; #:28; Refill: 0; YANNA = N; Record; Last Updated By: Arminda Linda; 03/18/2018 2:27:47 PM QUEtiapine Fumarate 200 MG Oral Tablet; TAKE 1 TABLET EVERY DAY AT BEDTIME; Therapy: [id number] to Recorded Rx By: PAZ; Dispense: 30 Days ; #:30; Refill: 0; YANNA = N; Record; Last Updated By: Martina Bedolla; 01/25/2018 2:11:18 PM Vitals Vital Signs Recorded: 29Oct2018 09:33AM Heart Rate78 Gfkiololiaj11 Zpqjcuvb812 Gnwkwqscn96 Afouiz824 cm 2-20 Stature Cxrhndzdjn81 % Xvhlce05 kg 2-20 Weight Qwrvfdkzus70 % BMI Dslckfzzql43.84 BMI Qxzlzvrarv43 % BSA Calculated1.71 O2 Ipzbarqrar62 Physical Exam Constitutional: awake, alert and cooperative. [...] persistent; YANNA = N; Verified Transmission to [id number]; Last Updated By: [employer]; 10/29/2018 1:37:58 PM Provider Impressions Asthma Severity: [...] or you have questions about the plan ([phone]). Please call us if you are having [...] date of service which is 10/29/2018. Normal [facility] Vital Signs Date Time Vital Sign Value Performing Clinician Facility 01-22-2024 09:44-0400 Blood Pressure Location Zenon Hernandez [facility] 01-22-2024 09:44-0400 bodymassindex 2.28 kg/m2 Zenon Hernandez [facility] Comment on above: Result Comment: ^~:!ZScore Source [facility] 01-22-2024 09:44-0400 Diastolic blood pressure 78 mm[Hg] Zenon Hernandez [facility] 01-22-2024 09:44-0400 Heart rate 94 /min Mohashleyd Mouchli [facility] 01-22-2024 09:44-0400 Height/Length Percentile 60.60 1 Mohamad Mouchli [facility] Comment on above: Result Comment: ^~:!Percentile Source [facility] 01-22-2024 09:44-0400 Height/Length Z-Score 0.27 1 Mohamad Mouchli [facility] Comment on above: Result Comment: ^~:!ZScore [facility] 01-22-2024 09:44-0400 Respiratory rate 16 /min Mohamad Mouchli [facility] 01-22-2024 09:44-0400 Systolic blood pressure 111 mm[Hg] Mohamad Mouchli [facility] 01-22-2024 09:44-0400 Weight Percentile 99.42 % Mohashleyd Mouchli [facility] Comment on above: Result Comment: ^~:!Percentile Source [facility] 01-22-2024 09:44-0400 Weight Z-Score 2.52 1 Ritud Mouchli [facility] Comment on above: Result Comment: ^~:!ZScore [facility] 01-13-2024 21:06-0400 Body temperature 98.06 [degF] [facility] 01-13-2024 21:06-0400 Diastolic blood pressure 93 mm[Hg] [facility] 01-13-2024 21:06-0400 Heart rate 71 /min [facility] 01-13-2024 21:06-0400 Mean blood pressure 105 mm[Hg] [facility] 01-13-2024 21:06-0400 Respiratory rate 18 /min [facility] 01-13-2024 21:06-0400 SaO2% (BldA) [Mass fraction] 96 % [facility] 01-13-2024 21:06-0400 Systolic blood pressure 130 mm[Hg] [facility] 01-13-2024 20:40-0400 Diastolic blood pressure 90 mm[Hg] [facility] 01-13-2024 20:40-0400 Heart rate 74 /min [facility] 01-13-2024 20:40-0400 Mean blood pressure 112 mm[Hg] [facility] 01-13-2024 20:40-0400 Systolic blood pressure 156 mm[Hg] [facility] 01-13-2024 19:43-0400 Diastolic blood pressure 84 mm[Hg] [facility] 01-13-2024 19:43-0400 Heart rate 76 /min [facility] 01-13-2024 19:43-0400 Mean blood pressure 100 mm[Hg] [facility] 01-13-2024 19:43-0400 Respiratory rate 18 /min [facility] 01-13-2024 19:43-0400 SaO2% (BldA) [Mass fraction] 97 % [facility] 01-13-2024 19:43-0400 Systolic blood pressure 131 mm[Hg] [facility] 01-13-2024 19:01-0400 Respiratory rate 16 /min [facility] 01-13-2024 19:01-0400 SaO2% (BldA) [Mass fraction] 97 % [facility] 01-13-2024 18:29-0400 Body temperature 98.42 [degF] [facility] 01-13-2024 18:29-0400 bodymassindex 2.3 kg/m2 [facility] Comment on above: Result Comment: ^~:!ZScore [facility] 01-13-2024 18:29-0400 Heart rate 75 /min [facility] 01-13-2024 18:29-0400 Height/Length Percentile 61.20 1 [facility] Comment on above: Result Comment: ^~:!Percentile Source [facility] 01-13-2024 18:29-0400 Height/Length Z-Score 0.28 1 [facility] Comment on above: Result Comment: ^~:!ZScore [facility] 01-13-2024 18:29-0400 Weight Percentile 99.46 % [facility] Comment on above: Result Comment: ^~:!Percentile [facility] 01-13-2024 18:29-0400 Weight Z-Score 2.55 1 [facility] Comment on above: [facility]: [facility] 01-12-[facility] 17:20-0400 Diastolic blood pressure 91 mm[Hg] Radha Chaparroe [facility] 01-12-2024 17:20-0400 Heart rate 74 /min Radha Chaparroe [facility] 01-12-2024 17:20-0400 Mean blood pressure 108 mm[Hg] Radha Chaparroe [facility] 01-12-2024 17:20-0400 Respiratory rate 16 /min Radha Chaparroe [facility] 01-12-2024 17:20-0400 SaO2% (BldA) [Mass fraction] 100 % Radha Chaparroe [facility] 01-12-2024 17:20-0400 Systolic blood pressure 143 mm[Hg] Radha Chaparroe [facility] 01-12-2024 16:59-0400 Blood Pressure Location Radha Chaaprroe [facility] 01-12-2024 16:59-0400 Diastolic blood pressure 91 mm[Hg] Radha Chaparroe [facility] 01-12-2024 16:59-0400 Heart rate 82 /min Radha Chaparroe [facility] 01-12-2024 16:59-0400 Mean blood pressure 108 mm[Hg] Radha Chaparroe [facility] 01-12-2024 16:59-0400 Respiratory rate 16 /min Radha Chaparroe [facility] 01-12-2024 16:59-0400 SaO2% (BldA) [Mass fraction] 100 % Radha Chaparroe [facility] 01-12-2024 16:59-0400 Systolic blood pressure 143 mm[Hg] Radha Chaparroe [facility] 01-12-2024 14:56-0400 Body temperature 98.6 [degF] Radha Chaparroe [facility] 01-12-2024 14:56-0400 bodymassindex 2.3 kg/m2 Radha Chaparroe [facility] Comment on above: Result Comment: ^~:!ZScore Source [facility] 01-12-2024 14:56-0400 Diastolic blood pressure 86 mm[Hg] Radha Chaparroe [facility] 01-12-2024 14:56-0400 Heart rate 93 /min Radha Chaparroe [facility] 01-12-2024 14:56-0400 Height/Length Percentile 61.20 1 Radha Chaparroe [facility] Comment on above: Result Comment: ^~:!Percentile Source -[facility] 01-12-2024 14:56-0400 Height/Length Z-Score 0.28 1 Radha Whipple [facility] Comment on above: Result Comment: ^~:!ZScore [facility] 01-12-2024 14:56-0400 Respiratory rate 18 /min Radha Whipple [facility] 01-12-2024 14:56-0400 SaO2% (BldA) [Mass fraction] 99 % Radha Whipple [facility] 01-12-2024 14:56-0400 Systolic blood pressure 135 mm[Hg] Radha Whipple [facility] 01-12-2024 14:56-0400 Weight Percentile 99.46 % Radha Whipple [facility] Comment on above: Result Comment: ^~:!Percentile Source -[facility] 01-12-2024 14:56-0400 Weight Z-Score 2.55 1 Radha Whipple [facility] Comment on above: Result Comment: ^~:!ZScore [facility] 06-30-2023 13:40-0500 Body height 165.1 cm Valorie Hansen MD Work Phone: [facility] 06-30-2023 13:40-0500 Body mass index (BMI) [Percentile] Per age and sex 99.59 % Valorie Hansen MD Work Phone: [facility] 06-30-2023 13:40-0500 Body mass index (BMI) [Ratio] 43.4 kg/m2 Valorie Hansen MD Work Phone: [facility] 06-30-2023 13:40-0500 Body weight 118.3 kg Valorie Hansen MD Work Phone: [facility] 06-30-2023 13:40-0500 Respiratory rate 16 /min Valorie Hansen MD Work Phone: [facility] 05-13-2023 13:00-0400 Hourly Rounding Hasan AMIR [facility] 05-13-2023 13:00-0400 Promise to Return Hasan AMIR [facility] 05-13-2023 12:00-0400 Body temperature 98.24 [degF] Hasan AMIR [facility] 05-13-2023 12:00-0400 Diastolic blood pressure 84 mm[Hg] Hasan AMIR [facility] 05-13-2023 12:00-0400 Heart rate 76 /min Hasan AMIR [facility] 05-13-2023 12:00-0400 Hourly Rounding Hasan AMIR [facility] 05-13-2023 12:00-0400 Mean blood pressure 93 mm[Hg] Hasan AMIR [facility] 05-13-2023 12:00-0400 Promise to Return Hasan AMIR [facility] 05-13-2023 12:00-0400 Respiratory rate 14 /min Hasan AMIR [facility] 05-13-2023 12:00-0400 SaO2% (BldA) [Mass fraction] 96 % Hasan AMIR [facility] 05-13-2023 12:00-0400 Systolic blood pressure 112 mm[Hg] Hasan AMIR [facility] 05-13-2023 11:00-0400 Diastolic blood pressure 71 mm[Hg] Hasan AMIR [facility] 05-13-2023 11:00-0400 Heart rate 90 /min Hasan AMIR [facility] 05-13-2023 11:00-0400 Hourly Rounding Hasan AMIR [facility] 05-13-2023 11:00-0400 Mean blood pressure 84 mm[Hg] Hasan AMIR [facility] 05-13-2023 11:00-0400 Promise to Return Hasan AMIR [facility] 05-13-2023 11:00-0400 Respiratory rate 13 /min Hasan AMIR [facility] 05-13-2023 11:00-0400 SaO2% (BldA) [Mass fraction] 97 % Hasan AMIR [facility] 05-13-2023 11:00-0400 Systolic blood pressure 111 mm[Hg] Hasan AMIR [facility] 05-13-2023 10:00-0400 Diastolic blood pressure 86 mm[Hg] Hasan AMIR [facility] 05-13-2023 10:00-0400 Heart rate 75 /min Hasan AMIR [facility] 05-13-2023 10:00-0400 Mean blood pressure 97 mm[Hg] Hasan AMIR [facility] 05-13-2023 10:00-0400 Systolic blood pressure 119 mm[Hg] Hasan AMIR [facility] 05-13-2023 08:00-0400 Body temperature 98.78 [degF] Hasan AMIR [facility] 05-13-2023 06:00-0400 Blood Pressure Location Hasan AMIR [facility] 05-13-2023 05:27-0400 weight 2.47 1 Hasan AMIR [facility] Comment on above: Result Comment: ^~:!SURYcore [facility] 05-13-2023 05:27-0400 Weight Percentile 99.33 % Hasan AMIR [facility] Comment on above: Result Comment: ^~:!Percentile Source [facility] 05-13-2023 04:00-0400 Body temperature 97.88 [degF] Hasan AMIR [facility] 05-12-2023 09:00-0400 weight 2.48 1 Hasan AMIR [facility] Comment on above: [facility]-12-[facility] 09:00-0400 Weight Percentile 99.34 % Hasan AMIR [facility] Comment on above: Result Comment: ^~:!Percentile Source [facility] 05-12-2023 06:18-0400 weight 2.46 1 Hasan AMIR [facility] Comment on above: Result Comment: ^[facility] [place] [facility] 05-12-2023 06:18-0400 Weight Percentile 99.30 % Hasan AMIR [facility] Comment on above: Result Comment: ^~:!Percentile Source [facility] [place] ^~:!Percentile Source [facility] 05-11-2023 20:00-0400 Body temperature 97.88 [degF] Hasan AMIR [facility] 05-11-2023 08:01-0400 bodymassindex 2.34 kg/m2 Hasan AMIR [facility] Comment on above: Result Comment: ^~:!ZScore [facility] 05-11-2023 08:01-0400 Height/Length Percentile 61.66 1 Hasan AMIR [facility] Comment on above: Result Comment: ^~:!Percentile Source [facility] 05-11-2023 08:01-0400 Height/Length Z-Score 0.30 1 Hasan AMIR [facility] Comment on above: Result Comment: ^~:!ZScore [facility] 05-11-2023 07:58-0400 bodymassindex 2.34 kg/m2 Hasan AMIR [facility] Comment on above: Result Comment: ^~:!ZScore [facility] 05-11-2023 07:58-0400 Height/Length Percentile 61.66 1 Hasan AMIR [facility] Comment on above: Result Comment: ^~:!Percentile [facility] 05-11-2023 07:58-0400 Height/Length Z-Score 0.30 1 Hasan AMIR [facility] Comment on above: Result Comment: ^~:!ZScore [facility] 03-16-2023 17:47-0400 Diastolic blood pressure 80 mm[Hg] Radha Whipple [facility] 03-16-2023 17:47-0400 Heart rate 84 /min Radha Whipple [facility] 03-16-2023 17:47-0400 Respiratory rate 17 /min Radha Whipple [facility] 03-16-2023 17:47-0400 SaO2% (BldA) [Mass fraction] 99 % Radha Whipple [facility] 03-16-2023 17:47-0400 Systolic blood pressure 133 mm[Hg] Radha Whipple [facility] 03-16-2023 16:52-0400 Body temperature 98.42 [degF] Radha Whipple [facility] 03-16-2023 16:52-0400 bodymassindex 2.36 Radha Whipple [facility] Comment on above: Result Comment: ^~:!ZScore [facility] 03-16-2023 16:52-0400 Diastolic blood pressure 92 mm[Hg] Radha Whipple [facility] 03-16-2023 16:52-0400 Heart rate 104 /min Radha Whipple [facility] 03-16-2023 16:52-0400 Height/Length Percentile 61.80 Radha Whipple [facility] Comment on above: Result Comment: ^~:![facility] 03-16-2023 16:52-0400 Height/Length Z-Score 0.30 Radha Whipple [facility] Comment on above: Result Comment: ^~:!ZScore [facility] 03-16-2023 16:52-0400 Respiratory rate 17 /min Radha Whipple [facility] 03-16-2023 16:52-0400 SaO2% (BldA) [Mass fraction] 98 % Radha Whipple [facility] 03-16-2023 16:52-0400 Systolic blood pressure 118 mm[Hg] Radha Whipple [facility] 03-16-2023 16:52-0400 weight 2.52 Radha Chaparroe [facility] Comment on above: Result Comment: ^~:!ZScore [facility] 03-16-2023 16:52-0400 Weight Percentile 99.41 % Radha Whipple [facility] Comment on above: Result Comment: ^~:!Percentile Source [facility] 03-13-2023 07:30-0400 Body temperature 98.1 [degF] MD Claudia Ellington Work Phone: [facility] 03-13-2023 07:30-0400 Diastolic blood pressure 65 mm[Hg] MD Claudia Ellington Work Phone: [facility] 03-13-2023 07:30-0400 Heart rate 60 /min MD Claudia Ellington Work Phone: [facility] 03-13-2023 07:30-0400 Respiratory rate 16 /min MD Claudia Ellington Work Phone: [facility] 03-13-2023 07:30-0400 SaO2% (BldA) [Mass fraction] 95 % MD Claudia Ellington Work Phone: [facility] 03-13-2023 07:30-0400 Systolic blood pressure 97 mm[Hg] MD Claudia Ellington Work Phone: [facility] 03-11-2023 15:15-0400 Body height 165.1 cm MD Claudia Ellington Work Phone: [facility] 03-10-2023 15:55-0400 Body weight 113.39 kg MD Claudia Ellington Work Phone: [facility] 03-10-2023 13:00-0400 Hourly Rounding Orladno Espinor [facility] 03-10-2023 13:00-0400 Promise to Return Orlando Espinor [facility] 03-10-2023 12:28-0400 Hourly Rounding Orlando Espinor [facility] 03-10-2023 12:28-0400 Promise to Return Orlando Espinor [facility] 03-10-2023 11:00-0400 Blood Pressure Location Orlando Paster [facility] 03-10-2023 11:00-0400 Body temperature 98.06 [degF] Orlando Paster [facility] 03-10-2023 11:00-0400 Diastolic blood pressure 73 mm[Hg] Orlando Paster [facility] 03-10-2023 11:00-0400 Heart rate 91 /min Orlando Paster [facility] 03-10-2023 11:00-0400 Hourly Rounding Orlando Paster [facility] 03-10-2023 11:00-0400 Mean blood pressure 85 mm[Hg] Orlando Paster [facility] 03-10-2023 11:00-0400 Promise to Return Orlando Paster [facility] 03-10-2023 11:00-0400 Respiratory rate 16 /min Orlando Paster [facility] 03-10-2023 11:00-0400 SaO2% (BldA) [Mass fraction] 97 % Orlando Paster [facility] 03-10-2023 11:00-0400 Systolic blood pressure 109 mm[Hg] Orlando Paster [facility] 03-10-2023 07:00-0400 Body temperature 97.88 [degF] Orlando Paster [facility] 03-10-2023 07:00-0400 Diastolic blood pressure 72 mm[Hg] Orlando Paster [facility] 03-10-2023 07:00-0400 Heart rate 87 /min Orlando Paster [facility] 03-10-2023 07:00-0400 Mean blood pressure 86 mm[Hg] Orlando Paster [facility] 03-10-2023 07:00-0400 Respiratory rate 18 /min Orlando Paster [facility] 03-10-2023 07:00-0400 SaO2% (BldA) [Mass fraction] 96 % Orlando Paster [facility] 03-10-2023 07:00-0400 Systolic blood pressure 115 mm[Hg] Orlando Paster [facility] 03-10-2023 05:04-0400 weight 2.52 Orlando Paster [facility] Comment on above: Result Comment: ^~:!ZScore [facility] 03-10-2023 05:04-0400 Weight Percentile 99.41 % Orlando Paster [facility] Comment on above: Result Comment: ^~:!Percentile Source [facility] 03-10-2023 00:14-0400 Blood Pressure Location Orlando Paster [facility] 03-10-2023 00:14-0400 Body temperature 98.06 [degF] Orlando Paster [facility] 03-10-2023 00:14-0400 Diastolic blood pressure 74 mm[Hg] Orlando Paster [facility] 03-10-2023 00:14-0400 Heart rate 79 /min Orlando Paster [facility] 03-10-2023 00:14-0400 Mean blood pressure 89 mm[Hg] Orlando Paster [facility] 03-10-2023 00:14-0400 Respiratory rate 16 /min Orlando Paster [facility] 03-10-2023 00:14-0400 Systolic blood pressure 118 mm[Hg] Orlando Paster [facility] 03-09-2023 19:28-0400 SaO2% (BldA) [Mass fraction] 95 % Orlando Paster [facility] 03-09-2023 19:28-0400 Mean blood pressure 91 mm[Hg] Orlando Paster [facility] 03-09-2023 19:27-0400 Body temperature 98.06 [degF] Orlando Paster [facility] 03-09-2023 12:39-0400 weight 2.44 Orlando Paster [facility] Comment on above: Result Comment: ^~:![facility] 03-09-2023 12:39-0400 Weight Percentile 99.26 % Orlando Paster [facility] Comment on above: Result Comment: ^~:![facility] 03-08-2023 10:57-0400 Body temperature 97.88 [degF] Orlando Paster [facility] 03-08-2023 10:56-0400 Mean blood pressure 89 mm[Hg] Orlando Paster [facility] 03-08-2023 07:28-0400 Mean blood pressure 97 mm[Hg] Orlando Paster [facility] 03-08-2023 07:28-0400 Heart rate 81 /min Orlando Paster [facility] 03-08-2023 07:28-0400 Respiratory rate 21 /min Orlando Paster [facility] 03-08-2023 06:49-0400 weight 2.80 Orlando Paster [facility] Comment on above: Result Comment: ^~:![facility] 03-08-2023 06:49-0400 Weight Percentile 99.74 % Orlando Paster [facility] Comment on above: Result Comment: ^~:!Percentile Source -[facility] 03-07-2023 23:48-0400 Respiratory rate 18 /min Orlando Paster [facility] 03-07-2023 20:57-0400 Respiratory rate 18 /min Orlando Paster [facility] 03-07-2023 20:02-0400 bodymassindex 2.58 Orlando Paster [facility] Comment on above: Result Comment: ^~:!ZScore [facility] 03-07-2023 20:02-0400 Height/Length Percentile 61.80 Orlando Paster [facility] Comment on above: Result Comment: ^~:!Percentile Source [facility] 03-07-2023 20:02-0400 Height/Length Z-Score 0.30 Orlando Paster [facility] Comment on above: Result Comment: ^~:!ZScore [facility] 03-07-2023 18:52-0400 bodymassindex 2.58 Orlando Paster [facility] Comment on above: Result Comment: ^~:!ZScore [facility] 03-07-2023 18:52-0400 Heart rate 91 /min Orlando Paster [facility] 03-07-2023 18:52-0400 Height/Length Percentile 61.80 Orlando Paster [facility] Comment on above: Result Comment: ^~:!Percentile Source [facility] 03-07-2023 18:52-0400 Height/Length Z-Score 0.30 Orlando Paster [facility] Comment on above: Result Comment: ^~:!ZScore [facility] 03-07-2023 14:11-0400 bodymassindex 2.33 Orlando Paster [facility] Comment on above: Result Comment: ^~:!Debbie [facility] 03-07-2023 14:11-0400 Heart rate 105 /min Orlando Wade [facility] 03-07-2023 14:11-0400 Height/Length Percentile 61.21 Orlando Wade [facility] Comment on above: Result Comment: ^~:!Percentile Source [facility] [place] 03-07-2023 14:11-0400 Height/Length Z-Score 0.28 Orlando Wade [facility] Comment on above: Result Comment: ^~:![facility] 11-13-2022 13:56-0400 Body temperature 98.06 [degF] Wilfredo Mono [facility] 11-13-2022 13:56-0400 bodymassindex 2.31 Wilfredo Villareal [facility] Comment on above: Result Comment: [facility]-13[facility]22 13:56-0400 Diastolic blood pressure 85 mm[Hg] Wilfredo Villareal [facility] 11-13-2022 13:56-0400 Heart rate 94 /min Wilfredo Villareal [facility] 11-13-2022 13:56-0400 Height/Length Percentile 61.53 Wilfredo Villareal [facility] Comment on above: Result Comment: ^~:!Percentile Source [place] 11-13-2022 13:56-0400 Height/Length Z-Score 0.29 Wilfredo Villareal [facility] Comment on above: Result Comment: [facility] 11-13-2022 13:56-0400 Respiratory rate 16 /min Wilfredo Mono [facility] 11-13-2022 13:56-0400 SaO2% (BldA) [Mass fraction] 97 % Wilfredo Villareal [facility] 11-13-2022 13:56-0400 Systolic blood pressure 135 mm[Hg] Wilfredo Villareal [facility] 11-13-2022 13:56-0400 weight 2.42 Wilfredo Villareal [facility] Comment on above: Result Comment: ^~:!ZScore [facility] 11-13-2022 13:56-0400 Weight Percentile 99.23 % Wilfredo Villareal [facility] Comment on above: Result Comment: ^~:!Percentile Source [facility] 10-11-2022 01:10-0500 Diastolic blood pressure 74 mm[Hg] Kaylinn Dokken [facility] 10-11-2022 01:10-0500 Heart rate 85 /min Kaylinn Dokken [facility] 10-11-2022 01:10-0500 Respiratory rate 12 /min Kaylinn Dokken [facility] 10-11-2022 01:10-0500 SaO2% (BldA) [Mass fraction] 98 % Kaylinn Dokken [facility] 10-11-2022 01:10-0500 Systolic blood pressure 118 mm[Hg] Kaylinn Dokken [facility] 10-11-2022 00:04-0500 Diastolic blood pressure 74 mm[Hg] Kaylinn Dokken [facility] 10-11-2022 00:04-0500 Heart rate 74 /min Kaylinn Dokken [facility] 10-11-2022 00:04-0500 Respiratory rate 12 /min Kaylinn Dokken [facility] 10-11-2022 00:04-0500 SaO2% (BldA) [Mass fraction] 97 % Rockyylinn Dokken [facility] 10-11-2022 00:04-0500 Systolic blood pressure 101 mm[Hg] Rockyylinn Dokken [facility] 10-10-2022 23:00-0500 Diastolic blood pressure 85 mm[Hg] Alexinn Dokken [facility] 10-10-2022 23:00-0500 Heart rate 87 /min Rockyylinn Dokken [facility] 10-10-2022 23:00-0500 Mean blood pressure 92 mm[Hg] Alexinn Dokken [facility] 10-10-2022 23:00-0500 Respiratory rate 20 /min Alexinn Dokken [facility] 10-10-2022 23:00-0500 Systolic blood pressure 105 mm[Hg] Rockyylinn Dokken [facility] 10-10-2022 21:54-0500 Body temperature 98.42 [degF] Alexinn Dokken [facility] 10-10-2022 21:54-0500 bodymassindex 2.32 Rockyylinn Dokken [facility] Comment on above: Result Comment: ^~:!ZScore Source -[facility] 10-10-2022 21:54-0500 Height/Length Percentile 62.20 Rockyylinn Dokken [facility] Comment on above: Result Comment: ^~:!Percentile Source -[facility] 10-10-2022 21:54-0500 Height/Length Z-Score 0.31 Ko Draper [facility] Comment on above: Result Comment: ^[facility] 10-10-2022 21:54-0500 Respiratory rate 15 /min Ko Draper [facility] 10-10-2022 21:54-0500 weight 2.43 Ko Draper [facility] Comment on above: Result Comment: ^~:![facility] 10-10-2022 21:54-0500 Weight Percentile 99.24 % Ko Draper [facility] Comment on above: Result Comment: ^~:!Percentile [facility] 10-06-2022 14:00-0500 Diastolic blood pressure 69 mm[Hg] Han Miky [facility] 10-06-2022 14:00-0500 Heart rate 79 /min Han Miky [facility] 10-06-2022 14:00-0500 Mean blood pressure 87 mm[Hg] Han Miky [facility] 10-06-2022 14:00-0500 Respiratory rate 18 /min Han Miky [facility] 10-06-2022 14:00-0500 SaO2% (BldA) [Mass fraction] 95 % Han Miky [facility] 10-06-2022 14:00-0500 Systolic blood pressure 122 mm[Hg] Han Miky [facility] 10-06-2022 00:30-0500 Diastolic blood pressure 60 mm[Hg] Han Miky [facility] 03-06-2023 00:30-0500 Heart rate 88 /min Han Miky [facility] 10-06-2022 00:30-0500 Respiratory rate 18 /min Han Miky [facility] 10-06-2022 00:30-0500 SaO2% (BldA) [Mass fraction] 96 % Han Miky [facility] 10-06-2022 00:30-0500 Systolic blood pressure 102 mm[Hg] Han Miky [facility] 10-05-2022 23:51-0500 Body temperature 97.7 [degF] Han Miky [facility] 10-05-2022 23:51-0500 bodymassindex 2.34 Han Miky [facility] Comment on above: Result Comment: ^~:!ZScore [facility] 10-05-2022 23:51-0500 Diastolic blood pressure 78 mm[Hg] Han Miky [facility] 10-05-2022 23:51-0500 Heart rate 89 /min Han Miyk [facility] 10-05-2022 23:51-0500 Height/Length Percentile 61.61 Han Miky [facility] Comment on above: Result Comment: ^~:!Percentile Source -[facility] 10-05-2022 23:51-0500 Height/Length Z-Score 0.30 Han Miky [facility] Comment on above: Result Comment: ^~:!ZScore [facility] 10-05-2022 23:51-0500 Respiratory rate 18 /min Han Miky [facility] 10-05-2022 23:51-0500 SaO2% (BldA) [Mass fraction] 95 % Han Miky [facility] 10-05-2022 23:51-0500 Systolic blood pressure 171 mm[Hg] Han Mkiy [facility] 10-05-2022 23:51-0500 weight 2.45 Han Miky [facility] Comment on above: Result Comment: ^~:!ZScore Source [facility] 10-05-2022 23:51-0500 Weight Percentile 99.29 % Han Miky [facility] Comment on above: Result Comment: ^~:!Percentile Source [facility] 07-08-2022 22:00-0500 Body temperature 98.78 [degF] Kaylinn Dokken [facility] 07-08-2022 22:00-0500 Diastolic blood pressure 74 mm[Hg] Kaylinn Dokken [facility] 07-08-2022 22:00-0500 Heart rate 77 /min Kaylinn Dokken [facility] 07-08-2022 22:00-0500 Mean blood pressure 86 mm[Hg] Kaylinn Dokken [facility] 07-08-2022 22:00-0500 Respiratory rate 12 /min Kaylinn Dokken [facility] 07-08-2022 22:00-0500 SaO2% (BldA) [Mass fraction] 97 % Kaylinn Dokken [facility] 07-08-2022 22:00-0500 Systolic blood pressure 110 mm[Hg] Kaylinn Dokken [facility] 07-08-2022 21:44-0500 Body temperature 99.32 [degF] Kaylinn Dokken [facility] 07-08-2022 21:44-0500 Diastolic blood pressure 73 mm[Hg] Kaylinn Dokken [facility] 07-08-2022 21:44-0500 Heart rate 90 /min Kaylinn Dokken [facility] 07-08-2022 21:44-0500 Mean blood pressure 88 mm[Hg] Kaylinn Dokken [facility] 07-08-2022 21:44-0500 Respiratory rate 16 /min Kaylinn Dokken [facility] 07-08-2022 21:44-0500 SaO2% (BldA) [Mass fraction] 96 % Kaylinn Dokken [facility] 07-08-2022 21:44-0500 Systolic blood pressure 119 mm[Hg] Kaylinn Dokken [facility] 07-08-2022 21:00-0500 Diastolic blood pressure 67 mm[Hg] Kaylinn Dokken [facility] 07-08-2022 21:00-0500 Heart rate 80 /min Kaylinn Dokken [facility] 07-08-2022 21:00-0500 Mean blood pressure 83 mm[Hg] Kaylinn Dokken [facility] 07-08-2022 21:00-0500 SaO2% (BldA) [Mass fraction] 98 % Kaylinn Dokken [facility] 07-08-2022 21:00-0500 Systolic blood pressure 116 mm[Hg] Kaylinn Dokken [facility] 07-08-2022 18:52-0500 Body temperature 100.04 [degF] Ko Draper [facility] 07-08-2022 18:52-0500 bodymassindex 2.38 Ko Draper [facility] Comment on above: Result Comment: ^~:!ZScore [facility] 07-08-2022 18:52-0500 Heart rate 86 /min Ko Draper [facility] 07-08-2022 18:52-0500 Height/Length Percentile 61.90 % Ginan Baron [facility] Comment on above: Result Comment: ^~:!Percentile Source [facility] 07-08-2022 18:52-0500 Height/Length Z-Score 0.30 Ko Draper [facility] Comment on above: Result Comment: ^~:!ZScore [facility] 07-08-2022 18:52-0500 Respiratory rate 18 /min Ko Draper [facility] 07-08-2022 18:52-0500 weight 2.47 Ko Draper [facility] Comment on above: Result Comment: ^~:!ZScore [facility] 07-08-2022 18:52-0500 Weight Percentile 99.33 % Ko Draper [facility] Comment on above: Result Comment: ^~:!Percentile Source [facility] 07-04-2022 18:09-0500 Body temperature 98.06 [degF] Radha Whipple [facility] 07-04-2022 18:09-0500 bodymassindex 2.21 Radha Whipple [facility] Comment on above: Result Comment: ^~:!ZScore [facility] 07-04-2022 18:09-0500 Diastolic blood pressure 83 mm[Hg] Radha Whipple [facility] 07-04-2022 18:09-0500 Heart rate 99 /min Radha Whipple [facility] 07-04-2022 18:09-0500 Height/Length Percentile 61.90 % Radha Whipple [facility] Comment on above: Result Comment: ^~:!Percentile Source -[facility] 07-04-2022 18:09-0500 Height/Length Z-Score 0.30 Radha Whipple [facility] Comment on above: Result Comment: ^~:!ZScore [facility] 07-04-2022 18:09-0500 Respiratory rate 18 /min Rdaha Whipple [facility] 07-04-2022 18:09-0500 SaO2% (BldA) [Mass fraction] 97 % Radha Whipple [facility] 07-04-2022 18:09-0500 Systolic blood pressure 121 mm[Hg] Radha Whipple [facility] 07-04-2022 18:09-0500 weight 2.29 Radha Whipple [facility] Comment on above: Result Comment: ^~:!ZScore [facility] 07-04-2022 18:09-0500 Weight Percentile 98.88 % Radha Whipple [facility] Comment on above: Result Comment: ^~:!Percentile Source -[facility] 07-02-2022 16:02-0500 Diastolic blood pressure 64 mm[Hg] Wilfredo Villareal [facility] 07-02-2022 16:02-0500 Heart rate 95 /min Wilfredo Mono [facility] 07-02-2022 16:02-0500 Respiratory rate 18 /min Wilfredo Mono [facility] 07-02-2022 16:02-0500 SaO2% (BldA) [Mass fraction] 95 % Wilfredo Mono [facility] 07-02-2022 16:02-0500 Systolic blood pressure 108 mm[Hg] Wilfredo Mono [facility] 07-02-2022 14:24-0500 Diastolic blood pressure 78 mm[Hg] Wilfredo Mono [facility] 07-02-2022 14:24-0500 Heart rate 95 /min Wilfredo Mono [facility] 07-02-2022 14:24-0500 Respiratory rate 18 /min Wilfredo Mono [facility] 07-02-2022 14:24-0500 SaO2% (BldA) [Mass fraction] 96 % Wilfredo Villareal [facility] 07-02-2022 14:24-0500 Systolic blood pressure 137 mm[Hg] Wilfredo Villareal [facility] 07-02-2022 13:28-0500 Body temperature 98.06 [degF] Wilfredo Villareal [facility] 07-02-2022 13:28-0500 bodymassindex 2.21 Wilfredokeysha Villareal [facility] Comment on above: Result Comment: [facility] 07-02-2022 13:28-0500 Diastolic blood pressure 74 mm[Hg] Wilfredo Villareal [facility] 07-02-2022 13:28-0500 Heart rate 108 /min Wilfredo Villareal [facility] 07-02-2022 13:28-0500 Height/Length Percentile 61.90 % Wilfredo Villareal [facility] Comment on above: Result Comment: ^~:!Percentile Source [place] 07-02-2022 13:28-0500 Height/Length Z-Score 0.30 Wilfredo Villareal [facility] Comment on above: Result Comment: ^~:![facility] 07-02-2022 13:28-0500 Respiratory rate 18 /min Wilfredo Villareal [facility] 07-02-2022 13:28-0500 SaO2% (BldA) [Mass fraction] 98 % Wilfredo Villareal [facility] 07-02-2022 13:28-0500 Systolic blood pressure 130 mm[Hg] Wilfredo Villareal [facility] 07-02-2022 13:28-0500 weight 2.29 Wilfredo Villareal [facility] Comment on above: Result Comment: ^~:![facility] 07-02-2022 13:28-0500 Weight Percentile 98.88 % Wilfredo Villareal [facility] Comment on above: Result Comment: ^~:!Percentile Source [place] 12-05-2021 22:39-0400 Blood Pressure Location Wilfredo Villareal [facility] 12-05-2021 22:39-0400 Body temperature 98.42 [degF] Wilfredokeysha Villareal [facility] 12-05-2021 22:39-0400 Diastolic blood pressure 98 mm[Hg] Wilfredo Villareal [facility] 12-05-2021 22:39-0400 Heart rate 114 /min Wilfredo Villareal [facility] 12-05-2021 22:39-0400 Mean blood pressure 110 mm[Hg] Wilfredo Villareal [facility] 12-05-2021 22:39-0400 Respiratory rate 16 /min Wilfredo Villareal [facility] 12-05-2021 22:39-0400 SaO2% (BldA) [Mass fraction] 95 % Wilfredo Villareal [facility] 12-05-2021 22:39-0400 Systolic blood pressure 133 mm[Hg] Wilfredo Villareal [facility] 12-05-2021 19:45-0400 Blood Pressure Location Wilfredo Villareal [facility] 12-05-2021 19:45-0400 Body temperature 99.68 [degF] Wilfredo Villareal [facility] 12-05-2021 19:45-0400 Diastolic blood pressure 91 mm[Hg] Wilfredo Villareal [facility] 12-05-2021 19:45-0400 Heart rate 107 /min Wilfredo Villareal [facility] 12-05-2021 19:45-0400 Mean blood pressure 101 mm[Hg] Wilfredo Villareal [facility] 12-05-2021 19:45-0400 Respiratory rate 16 /min Wilfredo Villareal [facility] 12-05-2021 19:45-0400 SaO2% (BldA) [Mass fraction] 99 % Wilfredo Villareal [facility] 12-05-2021 19:45-0400 Systolic blood pressure 122 mm[Hg] Wilfredo Mono [facility] 12-05-2021 18:51-0400 Blood Pressure Location Wilfredo Villareal [facility] 12-05-2021 18:51-0400 Diastolic blood pressure 64 mm[Hg] Wilfredo Villareal [facility] 12-05-2021 18:51-0400 Heart rate 74 /min Wilfredo Villareal [facility] 12-05-2021 18:51-0400 Mean blood pressure 88 mm[Hg] Wilfredo Villareal [facility] 12-05-2021 18:51-0400 Respiratory rate 16 /min Wilfredo Villareal [facility] 12-05-2021 18:51-0400 SaO2% (BldA) [Mass fraction] 99 % Wilfredo Mono [facility] 12-05-2021 18:51-0400 Systolic blood pressure 137 mm[Hg] Wilfredo Villareal [facility] 12-05-2021 07:00-0400 Body temperature 98.6 [degF] Wilfredo Villareal [facility] Encounters Encounter Date Encounter Type Care Provider Facility Start: 02-09-2024 ambulatory Zenon Hernandez Faci lity:[facility] Start: 01-25-2024 ambulatory Migue Farrell Facility :[facility] Start: 01-22-2024 End: 01-22-2024 ambulatory Zenon Hernandez Facility:[facility] Start: 01-22-2024 End: 01-22-2024 Patient encounter procedure Zenon Hernandez [facility] Start: 01-14-2024 ambulatory Claudia Ellington Facility: [facility] Start: 01-13-2024 End: 01-13-2024 Emergency department patient visit Migue Farrell [facility] Start: 01-12-2024 End: 01-12-2024 Emergency department patient visit Radha Whipple Facility:[facility] Start: 06-30-2023 ambulatory VALORIE HANSEN [facility] Start: 06-30-2023 End: 06-30-2023 Office outpatient new 30 minutes Valorie Hansen MD Work Phone: [facility] Comment on above: Macromastia (Primary Dx); Thoracic spine pain Start: 05-13-2023 ambulatory [place] Start: 05-11-2023 End: 05-13-2023 Evaluation and management of inpatient Akosua LR [facility] Start: 04-27-2023 Evaluation and management of inpatient Claudia Ellington Facility:[facility] Start: 03-16-2023 End: 03-16-2023 Emergency department patient visit Radha Whipple [facility] Start: 03-10-2023 End: 03-13-2023 Evaluation and management of inpatient MD Claudia Ellington Work Phone: [address] Work Phone: Start: 03-10-2023 End: 03-10-2023 ambulatory CLAUDIA ELLINGTON [facility] Start: 03-08-2023 End: 03-10-2023 Evaluation and management of inpatient Lawrence Reveles Facility:[facility] Start: 03-07-2023 End: 03-10-2023 Evaluation and management of inpatient Orlando Wade [facility] Start: 02-27-2023 End: 02-27-2023 ambulatory MISTY MACKEY Facility:[facility] Start: 11-14-2022 End: 11-14-2022 ambulatory CLAUDIASTONEY ELLINGTON [facility] Start: 11-13-2022 End: 11-13-2022 Emergency department patient visit Wilfredo Villareal [facility] Start: 11-05-2022 End: 11-06-[address] CLAUDIA ELLINGTON . Facility:[facility] Start: 11-05-2022 End: 11-05-2022 ambulatory TEENA TRAN . Facility:[facility] Start: 10-15-2022 End: 10-15-2022 ambulatory JUAN MIGUEL HUYNH [facility] Start: 10-13-2022 End: 10-13-2022 ambulatory CLAUDIA Pike Em [facility] Start: 10-10-2022 End: 10-11-2022 Emergency department patient visit Ko Villegas Baron [facility] Start: 10-06-2022 End: 10-06-2022 ambulatory CLAUDIA Pike Em [facility] Start: 10-05-2022 End: 10-06-2022 Emergency department patient visit Han IbrahimLaurita Bolaños [facility] Start: 10-03-[address] CLAUDIA ELLINGTON . Facili ty:[facility] Start: 09-25-2022 End: 09-26-[address] CLAUDIA ELLINGTON . Facility:[facility] Start: 09-24-2022 End: 09-25-[address] CLAUDIA ELLINGTON . Facility:[facility] Start: 09-11-2022 End: 09-11-[address] CLAUDIA ELLINGTON . Facility:[facility] Start: 08-05-2022 End: 08-05-[address] CLAUDIA ELLINGTON . Facility:[facility] Start: 07-31-2022 End: 07-31-2022 ambulatory MD Claudia Ellington Work Phone: [facility] Work Phone: Start: 07-31-2022 End: 07-31-2022 Patient encounter procedure MD Claudia Ellington Work Phone: [facility] [place] Work Phone: Start: 07-24-2022 End: 07-24-[address] CLAUDIA ELLINGTON . Facility:[facility] Start: 07-23-2022 End: 07-23-[address] CLAUDIA ELLINGTON . Facility:[facility] Start: 07-08-2022 End: 07-08-2022 Emergency department patient visit Ko Draper [facility] Start: 07-08-2022 End: 07-08-[address] CLAUDIA ELLINGTON . Facility:[facility] Start: 07-04-2022 End: 07-04-2022 Emergency department patient visit Radha Whipple [facility] Start: 07-02-2022 End: 07-02-2022 Emergency department patient visit Wilfredo Villareal [facility] Start: 06-25-2022 End: 06-25-[address] CLAUDIA ELLINGTON . Facility:[facility] Start: 06-20-2022 End: 06-20-[address] CLAUDIA ELLINGTON . Facility:[facility] Start: 05-26-2022 End: 05-26-[address] CLAUDIA ELLINGTON . Facility:[facility] Start: 05-14-2022 End: 05-14-2022 ambulatory CLAUDIA ELLINGTON [facility] Start: 04-26-2022 End: 04-27-[address] CLAUDIA ELLINGTON . Facility:[facility] Start: 04-04-2022 End: 04-04-2022 Patient encounter procedure MISTY MACKEY [facility] Start: 03-20-2022 End: 03-20-[address] CLAUDIA ELLINGTON . Facility:[facility] Start: 03-05-2022 End: 03-05-[address] CLAUDIA ELLINGTON . Facility:[facility] Start: 01-17-2022 End: 01-17-[address] CLAUDIA ELLINGTON . Facility:[facility] Start: 12-04-2021 End: 12-05-2021 Emergency department patient visit Wilfredo Villareal [facility] Start: 09-02-2018 Patient encounter procedure Martina Bedolla Facility:[id number] Start: 03-29-2018 Patient encounter procedure Martina Bedolla Facility:[id number] Start: 03-18-2018 Patient encounter procedure Liss Salvador Facility:[id number] Start: 01-25-2018 Patient encounter procedure Martina Bedolla Facility:[id number] Procedures Date Procedure Procedure Detail Performing Clinician Myringotomy and antwan strickland of middle ear Wilfredo Villareal Plan of Treatment Date Care Activity Detail Author Start: 01-29-2028 Tetanus vaccination TETANUS [facility] Start: 04-03-2023 COVID-19 VACCINE () COVID-19 VACCINE () [facility] Start: 03-13-2023 [facility] Start: 03-10-2023 Hospital admission [facility] Start: 03-10-2023 [facility] Start: 2020 Screening for Chlamy patricia trachomatis CHLAMYDIA SCREEN [facility] Start: 12-31-2019 HIV screening HIV SCREENING DISCUSSI ON [facility] Start: 2004 Hepatitis C screening HEPATITI S C VIRUS SCREENING [facility] Start: 2004 Screening for Chlamy patricia trachomatis GONORRHEA SCREEN [facility] Patient Education Depression, Ad ult (DC) [facility] [place] [place] [facility] [place] Instructions [facility] Work Phone: Patient referral [facility] Work Phone: Immunizations Immunization Date Immunization Notes Care Provider Hope ackerman 05-06-2023 influenza virus vaccine, unspecified formulation Zenon Hernandez [facility] 10-03-2022 SARS-CoV-2 (COVID-19 ) [id number] Orlando Wade [facility] 07-31-2022 meningococcal B vaccine, fully recombinant Orlando Paster [facility] [facility]22 SARS-CoV-2 (COVID-19 ) mRNA-1273 vaccine [facility] 07-01-2022 influenza virus vaccine, unspecified formulation [facility] 07-01-2022 meningococcal ACWY vaccine, unspecified formulation [facility] 07-01-2022 meningococcal B vaccine, fully recombinant [facility] 07-01-2022 SARS-CoV-2 (COVID-19 ) mRNA-1273 vaccine [facility] 08-09-2019 HPV, unspecified formulation [facility] 08-09-2019 influenza virus vaccine, unspecified formulation [facility] 01-28-2018 meningococcal ACWY vaccine, unspecified formulation [facility] 01-28-2018 tetanus toxoid, redu elisabeth diphtheria toxoid, and acellular pertussis vaccine, adsorbed [facility] 01-26-2018 HPV, unspecified formulation [facility] 07-21-2011 hepatitis A vaccine, unspecified formulation [facility] 01-16-2011 Diphtheria, tetanus toxoids and acellular pertussis vaccine, and poliovirus vaccine, inactivated [facility] 01-16-2011 hepatitis A vaccine, unspecified formulation [facility] 01-16-2011 measles, mumps, rubella, and varicella virus vaccine [facility] 04-20-2006 diphtheria, tetanus toxoids and acellular pertussis vaccine [facility] 04-20-2006 varicella virus vaccine Will alexis [facility] 01-28-2006 Hib, unspecified formulation [facility] 01-28-2006 measles, mumps and rubella virus vaccine [facility] 07-23-2005 DTaP-hepatitis B and poliovirus vaccine [facility] 07-23-2005 haemophilus influenz ae type b vaccine, PRP-T conjugate [facility] 05-28-2005 DTaP-hepatitis B and poliovirus vaccine [facility] 05-28-2005 haemophilus influenz ae type b vaccine, PRP-T conjugate [facility] 03-27-2005 DTaP-hepatitis B and poliovirus vaccine [facility] 03-27-2005 haemophilus influenz ae type b vaccine, PRP-T conjugate [facility] 2004 hepatitis B vaccine, pediatric or pediatric/adolescent dosage [facility] Payers Date Payer Category Payer Unknown [facility] [id number] 2023-Present [address] [place] [address] [id number] 2022 [facility] [id number] 2004 Unknown [id number] 2.16.840.1.512292.3.579.2.479 2004 Unknown [id number] 2.16.840.1.884083.3.579.2.983 2004 Unknown [id number] 2.16.840.1.755548.3.579.2.727 2004 Unknown [id number] 2.16.840.1.842185.3.579.2.727 2004 Unknown [id number] 2.16.840.1.984497.3.579.2.727 2004 Unknown [id number] 2.16.840.1.500885.3.579.2.727 2004 Unknown [id number] 2.16.840.1.536827.3.579.2.727 2004 Unknown [id number] 2.16.840.1.844411.3.579.2.727 2004 Unknown [id number] 2.16.840.1.814620.3.579.2.727 2004 Unknown [id number] 2.16.840.1.959067.3.579.2.727 2004 Unknown [id number] 2.16.840.1.606893.3.579.2.727 2004 Unknown [id number] 2.16.840.1.551110.3.579.2.727 1979 Unknown [id number] 2.16.840.1.255946.3.579.2.356 1979 Unknown [id number] 2.16.840.1.949608.3.579.2.356 1979 Unknown [id number] 2.16.840.1.664552.3.579.2.356 1979 Unknown [id number] 2.16.840.1.196800.3.579.2.356 1979 Unknown [id number] 2.16.840.1.189382.3.579.2.593 1979 Unknown [id number] 2.16.840.1.194900.3.579.2.593 1979 Unknown [id number] 2.16.840.1.814386.3.579.2.593 1979 Unknown [id number] 2.16.840.1.541532.3.579.2.593 1979 Unknown [id number] 2.16.840.1.429003.3.579.2.593 1979 Unknown [id number] 2.16.840.1.561971.3.579.2.593 1979 Unknown [id number] 2.16.840.1.847684.3.579.2.593 1979 Unknown [id number] 2.16.840.1.190899.3.579.2.593 1979 Unknown [id number] 2.16.840.1.440730.3.579.2.593 1979 Unknown [id number] 2.16.840.1.109121.3.579.2.593 1979 Unknown [id number] 2.16.840.1.857049.3.579.2.593 1979 Unknown [id number] 2.16.840.1.625961.3.579.2.593 1979 Unknown [id number] 2.16.840.1.836299.3.579.2.593 1979 Unknown [id number] 2.16.840.1.799057.3.579.2.59 1979 Unknown [id number] 2.16.840.1.388191.3.579.2.593 1979 Unknown [id number] 2.16.840.1.714139.3.579.2.593 1979 Unknown [id number] 2.16.840.1.275069.3.579.2.593 1979 Unknown [id number] 2.16.840.1.388069.3.579.2.593 1979 Unknown [id number] 2.16.840.1.821821.3.579.2.479 1979 Unknown [id number] 2.16.840.1.071757.3.579.2.479 1979 Unknown [id number] 2.16.840.1.517345.3.579.2.479 1979 Unknown [id number] 2.16.840.1.507420.3.579.2.479 1979 Unknown [id number] 2.16.840.1.683933.3.579.2.479 1959 Unknown [id number] 1959 Unknown [id number] Unknown [id number] 2.16840.1.007454.3.579.2.531 Unknown [id number] 2.840.1.731395.3.579.2.531 Unknown [id number] 2.16840.1.344544.3.579.2.531 Social History Date Type Detail Facility Start: 12-04-2021 End: 01-22-2024 Tobacco smoking status Never smoked tobacco (finding) [facility] Start: 06-30-2023 Sex Assigned At Female F [facility] Tobacco [facility] Comment on above: denies Tobacco smoking status No Smokin g Status Entered [facility] Start: 2005 Sex Assigned At Female F [facility] Start: 06-30-2023 Tobacco smoking stat NHIS Occasional tobacco smoker [facility] Start: 06-30-2023 History of [address] function [facility] Start: 06-30-2023 [email or web address] Start: 2004 Sex Assigned At Not on file A [employer] [facility] Goals Date Patient Goal Desired Activity /State Functional Status Date Assessment Result Facility 01-22-2024 Functional Status N/A [facility] 01-13-2024 Functional Status N/A [facility] 01-12-2024 Functional Status N/A [facility] 05-11-2023 Functional Status N/A [facility] 03-16-2023 Functional Status N/A [facility] 03-13-2023 Functional status Patient at [facility] Work Phone: 03-07-2023 Functional Status N/A [facility] 03-07-2023 Functional Status [facility] 11-13-2022 Functional Status N/A [facility] 10-10-2022 Functional Status N/A [facility] 10-05-2022 Functional Status N/A [facility] 07-08-2022 Functional Status N/A [facility] 07-04-2022 Functional Status N/A [facility] 07-02-2022 Functional Status N/A [facility] Mental Status Date Assessment Result Facility 03-13-2023 Cognitive function Cognitive Sta tus Patient at [facility] Work Phone: Clinical Notes 07-02-2022 to 01-22-2024 RadiologyValorie Hansen MD - 06/30/2023 2:00 PM EST Note Date & Type Note Facility 01-22-2024 Evaluation + Plan note Future Scheduled TestsCT Abdomen w/ Contrast 01/22/24 [facility] 01-13-2024 Hospital Discharge instructions Patient Education 01/13/2024 20:49:15 Acute Pancreatitis, Vhzz-wk-Wene Acute Pancreatitis Acute pancreatitis happens when there [...] Follow these instructions at home: Medicines Take yiav-tvo-fzpotqe and prescription medicines only as told by [...] provider. Document Revised: 06/10/2022 Document Reviewed: 06/10/2022 [employer] Patient Education 2022 [employer]. 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 Coffee and tea (caffeinated or decaffeinated). [place]. Liquid nutritional supplements. Soft drinks. Nondairy milks, such as almond, coconut, rice, or soy milk. Sweets and desserts Custard. Pudding. Flavored gelatin. Smooth ice cream (without nuts or candy pieces). Sherbet. Frozen ice pops. Swiss ice. Pudding pops. Seasonings and condiments Salt and pepper. Spices. Vinegar. Ketchup. Yellow mustard. Smooth sauces, such as Hollandaise, cheese sauce, or white sauce. Soy sauce. Syrup. Honey. Jelly (without fruit pieces). Other foods [place] powder. Cream soups. Strained soups. The items [...] provider. Document Revised: 05/07/2021 Document Reviewed: 05/07/2021 [employer] Patient Education 2022 Game [employer]. 01/12/2024 16:42:34 Nausea, Adult, Yqbq-sv-Ghrx Nausea, Adult Nausea is feeling like you [...] fruit juice). ?Low-calorie sports drinks. Eat bland, zoct-cg-nrsysy foods in small amounts as you are able, such as: ?Bananas. ?Applesauce. ?Rice. ?Low-fat (lean) meats. ?[place]. ?Crackers. Avoid drinking fluids that have a lot of sugar or caffeine in them. This includes energy drinks, sports drinks, and soda. Avoid alcohol. Avoid spicy or fatty foods. General instructions Take szym-fvc-bbbvjak and prescription medicines only as told by [...] cannot use soap and water, use hand biller. Make sure that everyone in your home [...] drink what your doctor tells you. Take aacy-pig-mrritoc and prescription medicines only as told by your doctor. Contact a doctor right away if your symptoms get worse or you have new symptoms. Keep all follow-up visits. This information is not intended to replace advice given to you by your health care provider. Make sure you discuss any questions you have with your health care provider. Document Revised: 01/24/2022 Document Reviewed: 01/24/2022 [employer] Patient Education 2022 Game [employer]. 01/12/2024 16:42:31 Abdominal Pain, Adult, Roqv-cs-Yogr Abdominal Pain, Adult Many things can cause belly (abdominal) pain. Most times, belly pain is not dangerous. Many cases of belly pain can be watched and treated at home. Sometimes, though, belly pain is serious. Your doctor will try to find the cause of your belly pain. Follow these instructions at home: Medicines Take tfip-muy-wzimjkl and prescription medicines only as told by [...] your belly pain for any changes. Take lfsm-ghc-mfximuo and prescription medicines only as told by [...] provider. Document Revised: 11/28/2019 Document Reviewed: 11/28/2019 [employer] Patient Education 2022 Game [employer]. Follow Up Care 01/12/2024 14:44:40 With:Claudia Ellington MD Address: [address] [place] [address]- When:01/15/2024 [facility] 06-30-2023 History of Present illness Narrative [...] her perioperative risk. documented in this encounter [facility] 05-25-2023 Note Admission and Discha rge Information [...] 46.4 % Lymph Auto - 41.3 % Oceana Auto - 8.8 % Eos Auto - 3.1 % Basophil Auto - 0.4 % Neutro Absolute - 2.6 E9/L Lymph Absolute - 2.3 E9/L [place]ceana Absolute - 0.5 E9/L Eos Absolute - 0.2 E9/L Basophil Absolute - 0.0 E9/L Capillary Glucose POC (05/12/2023) Glucose Cap - 84 mg/dL POC Device SN - [id number] POC User ID - [id number] POC Username - NERY ALCALA CBC w/ Auto Diff (05/12/2023) WBC - [...] mg Cap Junel Fe 08/22 oral tablet Lamictal 25 mg Tab, 25 mg= 1 tab(s), Oral, Daily lurasidone 60 mg oral tablet melatonin-pyridoxine 3 mg-10 mg oral tablet, extended release Protonix 40 mg tablet Follow-up With When Contact Information Joann MACK [address] [phone]- Business (1) Additional Instructions: Call for hospital followup appointment 2-3 weeks Claudia Ellington [facility] [address]- Business (1) Additional Instructions: Call for followup appointment Patient Education Seizure, Adult [facility] Comment on above: Result Comment: [...] Follow these instructions at home: Medicines Take pnms-mkc-pbsmpkt and prescription medicines only as told by [...] medicines are used to treat seizures. Take qqpc-gqi-vweuevo and prescription medicines only as told by your health care provider. This information is not intended to replace advice given to you by your health care provider. Make sure you discuss any questions you have with your health care provider. Document Revised: 01/25/2021 Document Reviewed: 01/25/2021 [employer] Patient Education 2022 iKnowl Follow Up Care 04/22/2023 12:48:03 With:Joann Zamorano Address: [address] [address] Business (1) When: Unknown Comments:Call for hospital followup appointment 2-3 weeks With:Claudia Ellington Address: [address] [place] [phone] Business (1) When: Unknown Comments:Call for followup appointment [facility] 05-13-2023 Evaluation + Plan note Extrac [...] allergic rhinitis) Extracted from: Title:APSO Note [facility] Alicia PikeLaurita Date:05/12/23 1. Seizures (R56.9: Unspecif ied convulsions) [...] date 05/11/23 16:03:00 EDT, 05/11/23 16:03:00 EDT [facility] Prescription, lurasidone 60 mg oral tablet, Oral, [...] on the hospitalization course and therapeutic plan. [facility]10-10-2023 NoteChief Complaint LTME Reason for Consultation [...] sensation in all 4 extremities Cerebellar exam: Fbkqel-iz-herm reveals no ataxia. Gait is normal Assessment/Plan [...] tab(s), Oral, Daily FLUoxetine 40 mg Cap 08/22 oral tablet Keppra, 1000 mg, Oral, [...] 12/04/2021 Immunizations Vaccine Date Status SARS-CoV-2 (COVID-19) [id number].[id number] 10/03/2022 Recorded meningococcal group B vaccine 07/31/2022 [...] hepatitis A pediatric vaccine (more content not included)...[facility] Comment: Electronically Signed By: [...] sensation in all 4 extremities. Cerebellar exam: Wfldgx-di-lxeu reveals no ataxia. Gait is normal. Assessment/Plan [...] 12/04/2021 Immunizations Vaccine Date Status SARS-CoV-2 (COVID-19) [id number].ORD![id number] 10/03/2022 Recorded meningococcal group B vaccine 07/31/2022 [...] 05/28/2005 Recorded haemophilus b (more content not included)...[facility]Result Comment: Electronically Signed By: Riya Tidwell RN\.br\Date and Time Signed: 05/11/23 09:39 EDT\.br\Electronically Co-Signed By: Melecio Rubio MD\.br\Date and Time Co-Signed: 05/12/23 08:36 [id number] NoteBasic Information Admit Date/Time:05/11/2023 07:29 Chief Complaint [...] date 05/11/23 16:03:00 EDT, 05/11/23 16:03:00 EDT [facility] Prescription, lurasidone 60 mg oral tablet, Oral, [...] agreement with POC. P (more content not included)...[facility]: Result Comment: Electronically Signed By: Alicia Sidhu\.br\Date and Time Signed: 05/11/23 20:00 EDT\.br\Electronically Co-Signed By: Akosua LR MD\.br\Date and Time Co-Signed: 05/12/23 06:56 [id number] Hospital Discharge instructions Patient Education 03/16/2023 17:50:47 [...] Follow these instructions at home: Medicines Take oysi-tkv-fzyornc and prescription medicines only as told by [...] and water are not available, use hand biller. ?Leave stitches (sutures), skin glue, or adhesive [...] provider. Document Revised: 10/24/2021 Document Reviewed: 10/24/2021 [employer] Patient Education 2022 Game [employer]. 03/16/2023 17:50:47 Head Injury, Adult Head Injury, [...] Ask your health care provider for a zgxq-la-zpdv plan for gradually returning to activities. Ask [...] your friends, family, a trusted colleague, and networking technology instructor about your injury, symptoms, and restrictions. Have them watch for any new or worsening problems. General instructions Take psft-jsu-ajwmmtv and prescription medicines only as told by [...] provider. Document Revised: 06/01/2020 Document Reviewed: 06/01/2020 [employer] Patient Education 2022 Game [employer]. Follow Up Care 03/16/2023 16:19:26 With:Claudia Ellington Address: [address] [place] [address] Business (1) When:03/19/2023 17:36:52 [facility]08-11-2023 Discharge summary Author John Monson [facility] March 13, 2023 9:40am Note Date/Time March 13, 2023 9: 40am [facility] [address] [place], [place] [id number] Discharge Summary Signed Patient: Rose Mary Schneider MR#: [id number] : 2005 Acct:[id number] Age/Sex: 17 / F Adm Date: 3 Loc: Room: [address] [place] [address]: John Monson MD Copies to: [...] admission note),the patient was pink slipped from [employer] and acknowledged she attempted suicide by overdosing [...] No Activity Restrictions Instructions: Depression, Adult (DC), [facility] [place] [facility] [place] Instructions Prescriptions: Continued levetiracetam 750 mg tablet 750 mg PO BID fluoxetine 40 mg capsule 40 mg PO DAILY Patient Comments: TAKE 1 CAPSULE BY MOUTH EVERY DAY cetirizine 10 mg tablet 20 mg PO DAILY Patient Comments: TAKE 2 TABLETS BY MOUTH EVERY DAY norethindrone-e.estradiol-iron [ FE 08/22 (28)] 1 mg-20 mcg (21)/75 mg (7)tablet [...] 14 Days Qty: 21 0RF Follow Up: [facility] [Outside] [facility] [Outside] (Sees Dr. Mackey.) Joann Zamorano DO [Courtesy/Consulting Physician] - (Contact your neurologist with any needs related to history of seizures. ) Claudia Ellington MD [Primary Care Provider] - (Contact your primary care providerwith any medical needs. ) Documented By: John Monson MD 03/13/23937 Signed By: <Electronically signed by John Monson MD> 03/13/23939 [facility] Work Phone: 1(720) 563-633908-10-2023 Progress note Author John Monson [facility] March 12, 2023 1:37pm Note Date/Time March 12, 2023 1: 37pm [facility] [address] [place] [address] Psychiatry Progress Note Signed Patient: Rose Mary Schneider MR#: [id number] : 2005 Acct:[id number] Age/Sex: 17 / F Adm Date: 3 Loc: Room: [address] [place] [address] Type : ADM IN Attending Dr: John [...] therapy Documented By: John Monson MD 03/12/23 4282 Signed By: <Electronically signed by John Monson MD> 03/12/23 1335 [facility] Work Phone: 1(488) 700-939208-09-2023 History and physical note Author John Monson [facility] March 11, 2023 1:28pm Note Date/Time March 11, 2023 1:2 8pm [facility] [address] [place] [address] Psychiatry H&P Signed Patient: Rose Mary Schneider MR#: [id number] : 2005 Acct:[id number] Age/Sex: 17 / F Adm Date: 3 Loc: Room: [address] [place] [address] Type: ADM IN Attending Dr: John Monson MD Copies to: MD Claudia Avila MD~ Date of Service: 03/11/2023 HPI History of Present Illness History of present illness: This is a 17-year-old female with reported history of depression and suicidal ideation who presents for inpatient admission due to worsening of suicidal thoughts. Reportedly (per admission note),the patient was pink slipped from [employer] and acknowledged she attempted suicide by overdosing [...] denies working currently. Previously worked at a [employer] until October of this year. Relationships: Reports [...] John Monson MD> 03/11/23 1328 [facility] Work Phone: 1(340) 172-257708-08-2023 Hospital Discharge instructions Patient Education 03/10/2023 12:40:41 [...] services (911 in the [place] Call the [facility] and human services helpline (211 in the [place] Call or text a suicide hotline to speak with a trained counselor. The following suicide hotlines are available in the [place]: ?6-430-646-TALK ( or 851 in the [place] ?6-107-ZCOUXTX ( ). ?Text 631935. This is the Crisis Text Line in the [place] ? . This is a hotline for Sri Lankan speakers. ? . This is a hotline for TTY users. ?2-471-2-U-ELIZA ( ). This is a hotline for lesbian, schultz, bisexual, transgender, or questioning youth. ?For a list of hotlines in [place], visit suicide.org/hotlines/international/tbmnua-gruxxmb-zxwpmmcp.html Contact a crisis center or a local [...] to anyone or being with other people. ?Tnqx-nn-eugz conversation is best to help them understand [...] physical and a mental health checkup. Take kxfc-vsb-pumdsey and prescription medicines only as told by [...] National Suicide Prevention Lifeline: www.suicidepreventionlifeline.org Hopeline: www.hopeline.com [place] Foundation for Suicide Prevention: www.afsp.org The Eliza Project (for lesbian, schultz, bisexual, transgender, or questioning youth): www.thetrevorproject.org National [place] of Mental Health: www.nimh.nih.gov/health/topics/suicide-prevention Suicide Prevention Resources: afsp.org/mwjzrpm-hfdfizddhz-lhgmzevkc Contact a health care provider if: You [...] provider. Document Revised: 02/13/2022 Document Reviewed: 11/28/2021 [employer] Patient Education 2022 Game Digital. Follow Up Care 03/07/2023 14:09:50 With:Claudia Ellington Address: [address] [place] [phone]- Business (1) When: Unknown Comments:Call for followup appointment With:Joann Zamorano DO, [facility] Address: When:2 to 4 weeks [facility]08-08-2023 Evaluation + Plan noteExtracted from: Title:Discharge [...] release With When Contact Information Claudia Ellington [address] [place] [phone]- [place] (1) Additional Instructions: Call for followup appointment [...] this morning are within normal limits Ordered: [facility] Care/Day Moderate 35 Minutes 08506 2. Hypokalemia, (E87.6: Hypokalemia)Hypokalemia Resolved Ordered: [facility] Care/Day Moderate 35 Minutes 69241 2. Suicidal ideation (R45.851: Suicidal ideations) No longer expressing suicidal ideation She was pink slipped yesterday; awaiting MHP Ordered: [facility] Care/Day Moderate 35 Minutes 24563 3. Antihistamines overdose (T45.0X1A: Poisoning by antiallergic and antiemetic drugs, accidental (unintentional), initial encounter) Ordered: [facility] Care/Day Moderate 35 Minutes 09579 5. Depression (F32.A: Depression, unspecified) Continue fluoxetine Ordered: [facility] Care/Day Moderate 35 Minutes 36512 6. Seizure (R56.9: Unspecified convulsions) Continue Keppra, Lamictal and lurasidone Seizure precautions Ordered: [facility] Care/Day Moderate 35 Minutes 59310 7. Obesity (E66.9: Obesity, unspecified) Ordered: [facility] Care/Day Moderate 35 Minutes 63115 8. 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 Care/Day Moderate 35 Minutes 36918 Orders: Transfer Patient to Transfer Patient to PLAN: 1. Continue current meds from home including her paroxetine for depression as well as her Keppra, Lamictal and lurasidone for her seizures 2. Seizure precautions in place 3. Patient pink slipped yesterday awaiting [facility] 4. Discharge planning Extracted from: Title:Progress/SOAP Note Author:Abdirizak GONZALEZ Cynthia gonzalez Shahzad. 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 Secondary to suicide ideation/attempt. plate worker evaluation. Acetaminophen level ekta to 40 but trended down to undetectable. Treating with IVF Thursday. LFTs within normal limit. Repeat LFTs and PT/INR in AM. Ordered: Basic Metabolic Panel Comprehensive Metabolic Panel Consult to Supervisor Title eGFR Extra Lav Tube Hepatic Function Panel PT [facility] Care/Day Moderate 35 Minutes 60968 2. Suicidal ideation (R45.851: Suicidal ideations) Supportive care. plate worker evaluation. Mental health evaluation in a.m. once medically stable. Ordered: Consult to Supervisor Title [facility] Care/Day Moderate 35 Minutes 07603 3. Antihistamines overdose (T45.0X1A: Poisoning by antiallergic and antiemetic drugs, accidental (unintentional), initial encounter) Treated with charcoal. Respiratory status and circulation currently stable. Treated with IV fluid. Bladder scan so far not retaining urine. Ordered: [facility] Care/Day Moderate 35 Minutes 95545 4. Hypokalemia (E87.6: Hypokalemia) Secondary to gastrointestinal loss and IV fluid. We will replace orally. Ordered: potassium chloride, 40 mEq = 2 tab(s), Tab-ER, Oral, BID for 2 dose(s), Stop date 03/09/23 8:59:00 EDT, Routine, Start date 03/08/23 9:00:00 EDT, 03/08/23 8:36:00 EDT Comprehensive Metabolic Panel [facility] Care/Day Moderate 35 Minutes 14746 5. Depression (F32.A: Depression, unspecified) On fluoxetine. Ordered: [facility]/Day Moderate 35 Minutes 85596 6. Seizure (R56.9: Unspecified convulsions) No reported seizure. On Lamictal and Keppra. Ordered: lorazepam, 1 mg = 0.5 mL, Injection, IV Push, QID PRN Seizure, Routine, Start date 03/07/23 18:04:00 EDT 7. Obesity (E66.9: Obesity, unspecified) Recommend therapeutic lifestyle modification changes. 8. On deep vein thrombosis (DVT) prophylaxis (Z79.899: Other shelter (current) drug therapy) SCDs. Disposition: Pending mental health evaluation in AM. I discussed the diagnosis and plan of care with the patient at the bedside. Moderate level of MDM based on addressing above issues. This documentation was transcribed using voice recognition software. Several attempts were made to ensure accuracy. However inadvertent computerized cancer genetic counselor errors may be present. Jennifer Retana. Hospitalist. [...] Weight Extracted from: Title:Admission H & P Author:Jennifer RETANA MD Date:03/07/23 17-year-old female with history of seizure [...] observation. Ordered: Basic Metabolic Panel Consult to Supervisor Title Hepatic Function Panel [facility] Care/Day High 75 Minutes 91700 2. Suicidal ideation (R45.851: Suicidal ideations) Supportive care. Social work evaluation. Mental health evaluation once medically stable. Ordered: Consult to Supervisor Title [facility] Care/Day High 75 Minutes 94841 3. Antihistamines overdose (T45.0X1A: Poisoning by antiallergic and antiemetic drugs, accidental (unintentional), initial encounter) Treated with charcoal. Currently sedated with secured and circulation stable. Monitor patient with end-tidal CO2 monitor. We will observe for delirium/agitation and may treat with physostigmine. Bladder scan every 6 hours to check for urinary retention. Ordered: [facility] Hospital Care/Day High 75 Minutes 80661 4. Depression (F32.A: Depression, unspecified) On fluoxetine at home. Ordered: [facility] Hospital Care/Day High 75 Minutes 23106 5. Seizure (R56.9: Unspecified convulsions) On Keppra and Lamictal. Ordered: lorazepam, 1 mg = 0.5 mL, Injection, IV Push, QID PRN Seizure, Routine, Start date 03/07/23 18:04:00 EDT, 03/07/23 18:04:00 EDT Initial Hospital Care/Day High 75 Minutes 82799 6. Obesity (E66.9: Obesity, unspecified) Recommend therapeutic lifestyle modification changes. 7. On deep vein thrombosis (DVT) prophylaxis (Z79.899: Other shelter (current) drug therapy) SCDs. Disposition: The patient [...] made to ensure accuracy. However inadvertent computerized cancer genetic counselor errors may be present. Jennifer Retana. Hospitalist. [...] Continuous Salicylate Level XR Chest Single View [facility]08-08-2023 NoteAdmission and Discharge Information Admit Date/Time:03/08/2023 17:43 Admitting Physician - Orlando Wade DO Consulting Physician - Melecio Rubio MD Admitting Diagnoses: 1. Poisoning by 4-Aminophenol derivatives, intentional self-harm, initial encounter, 03/09/2023 2. Hypokalemia, 03/09/2023 Discharge Order Date Discharge Patient - Ordered -- 03/10/23 12:22:00 EDT, [address] Discharge Diagnoses 1. Intentional acetaminophen overdose, Poisoning [...] normal. We did pink slip her for [facility] to evaluate her. She is excepted to 1 S. Procedures and Treatment Provided Neurology consultation Services Consulted Consult to Neurology - Ordered -- 03/08/23 13:54:00 EDT, AMS in the setting of OD, Consult and Co-manage Supervisor Title Consult - Completed -- 03/07/23 17:58:00 EDT, [...] 60.3 % Lymph Auto - 28.7 % Oceana Auto - 8.6 % Eos Auto - 1.9 % Basophil Auto - 0.5 % Neutro Absolute - 4.1 E9/L Lymph Absolute - 2.0 E9/L Oceana Absolute - 0.6 E9/L Eos Absolute - [...] - 7.2 gm/dL A (more content not included)...[facility]: Result Comment: Electronically Signed By: Lawrence Reveles DO\Date and Time Signed: 03/10/23 12:27 [id number] NoteCRM entered the room to discuss dc planning. PCP, DME and insurance discussed. Patient is alert andinvolved in plan of care. Contact information provided and whiteboard updated. CRM spoke to pt and mother about pink slip. Pt is agreeable to inpt psych stay. Pending MHP eval and bed. Chassell slip willexp at 2pm. SW is following up. Ant dc 03/10. CRM to follow. [facility] will facilitate transport.[facility] HospitalComment on above:Result Comment: Electronically Signed By: Peyton Mccarty\Date and Time Signed: 03/10/23 12:11 [id number] NoteChief Complaint I over dose of tylenol [...] deep vein thrombosis (DVT) prophylaxis (Z79.899: Other shelter (current) drug therapy) Problem List/Past Medical History [...] 12/04/2021 Immunizations Vaccine Date Status SARS-CoV-2 (COVID-19) [id number] 10/03/2022 Recorded (more content not included)...[facility] on above:Result Comment: Electronically Signed By: Irene Harding RN\.br\Date and Time Signed: 03/09/23 11:35 EDT\.br\Electronically Co-Signed By: Daniel Reaves DO\.br\Date and Time Co-Signed: 03/09/23 11:52 [id number] Note13:50: Nursing requested patient evaluation at bedside, [...] po bid. EEG ordered, will be completed tomorrowNorwalk [facility] HospitalComment on above: Result Comment: Electronically Signed By: ADELINE MARCANO, Akosua\.br\Date and Time Signed: 03/08/23 16:06 [id number] NoteChief Complaint patient c/o dizziness, lethargy and GLASER after intentionally taking an entire bottle of [...] 100 pills that are in the bottle. [place] very dizzy and sleepy was also having [...] 14:43:00) Lymph Auto: 28.7 % (03/07/23 14:43:00) Oceana Auto: 8.6 % (03/07/23 14:43:00) Eos Auto: 1.9 % (03/07/23 14:43:00) Basophil Auto: 0.5 % (03/07/23 14:43:00) Neutro Absolute: 4.1 E9/L (03/07/23 14:43:00) Lymph Absolute: 2 E9/L (03/07/23 14:43:00) Oceana Absolute: 0.6 E9/L (03/07/23 14:43:00) Eos Absolute: [...] (03/07/23 14:43:00) Bili I (more content not included)...[facility] HospitalComment on above:Result Comment: Electronically Signed By: DEBBIE MARCANO, Jennifer\.br\Date and Time Signed: 03/07/23 18:12 [id number] Hospital Discharge instructions Patient Education 11/13/2022 18:45:15 [...] emergency services (911 in the [place] The [facility] services helpline (211 in the [place] Go to your nearest emergency department. Call a suicide hotline to speak with a trained counselor. The following suicide hotlines are available in the [place]: ?8-297-626-TALK ( ). ?6-816-CVIWXKQ ( ). ? . This is a hotline for Sri Lankan speakers. ? . This is a hotline for TTY users. ?7-691-4-U-ELIZA ( ). This is a hotline for lesbian, schultz, bisexual, transgender, or questioning youth. ?For a list of hotlines in [place], visit www.suicide.org/hotlines/international/vsnynn-zzxphpq-swyowvex.html Contact a crisis center or a local [...] day, even if you do notfeel sociable. Qwon-sq-mjzz conversation is best to help them understand [...] day can help you feel better. Take ejzg-mis-hdtlbqn and prescription medicines only as told by [...] National Suicide Prevention Lifeline: www.suicidepreventionlifeline.org Hopeline: www.hopeline.com [place] Foundation for Suicide Prevention: www.afsp.org The Eliza [...] away. Call emergency services, go to your [facility] or crisis center, [...] 2004 Document Revised: 11/10/2019 Document Reviewed: 03/02/2018 [employer] Patient Education 2020 [employer]. Follow Up Care 11/13/2022 13:37:26 With:[facility] Address:Unknown When:11/16/2022 18:44:48 Comments:Return should you have worsening symptoms or feel unsafe. Call 911 or mental health counseling at any time. With:Claudia Ellington Address: [address] [place] [id number]- Business (1) When:11/16/2022 18:44:44 Comments:Call the office [...] you develop any new or worsening symptoms. [facility]04-13-2023 Evaluation + Plan noteExtracted from: Title:ED Note Author:Wilfredo Villareal DO Date: Suicidal ideation (R45.851: Suicidal ideations) Orders: Acetaminophen Level Automated Diff Beta hCG Qual CBC w/ Auto Diff Communication Order Comprehensive Metabolic Panel Consult to Mental Health Drug Screen Urine ECG Pediatric Ethanol Level Extra Blue Tube Salicylate Level UA With Cult Reflex [facility]03-11-2023 Hospital Discharge instructions Patient Education 10/11/2022 [...] what your health care provider or the pharmacist recommends for you. What are the signs [...] Follow these instructions at home: Medicines Take asrp-muv-wchbsuc and prescription medicines only as told by your health care provider. Avoid any medicines that contain acetaminophen for as long as told by your health care provider. Todo this: ?Check all medicine labels for the presence of acetaminophen. Acetaminophen is found in many lsqe-aup-unzblof and prescription medicines. These include medicines for [...] the hospital. Call: Your local emergency services (228 in the [place] Your local poison control [...] 05/04/2015 Document Revised: 02/18/2019 Document Reviewed: 02/18/2019 [employer]rian Patient Education [employer]. Follow Up Care 10/10/2022 21:52:59 With:[facility] Address:Unknown When:10/14/2022 Comments:Please follow-up with your primary care doctor in addition to your counselor in the next 1 to 2 days. Return to the ED for any new or worsening symptoms. With:Claudia Ellington Address: [address] [place], [place] [id number] Business (1) When:10/14/2022 [facility]03-10-2023 Evaluation + Plan noteExtracted from: Title:ED [...] Level PT & PTT Rapid COVID Antigen ([facility]) Salicylate Level U Beta Hcg Qual [facility]03-06-2023 Evaluation + Plan noteExtracted from: Title:ED Note Author:Miky Han IbrahimLaurita Date :10/06/22 Syncope (R55: Syncope and co llapse) Orders: Automated Diff Basic Metabolic Panel Capillary Glucose POC CBC w/ Auto Diff ECG Pediatric ED Cardiac Monitoring Oxygen Saturation Oxygen Therapy PT & PTT Saline Lock Insert Troponin 0 Hr. U Beta Hcg Qual UA With Cult Reflex XR Chest Single View [facility]03-06-2023 Hospital Discharge instructions Patient Education 10/06/2022 [...] your urine pale yellow. General instructions Take qjax-rpr-ztjgtiz and prescription medicines only as told by [...] 07/20/2006 Document Revised: 07/02/2018 Document Reviewed: 06/28/2018 [employer] Patient Education 2019 [employer]. Follow Up Care 10/05/2022 23:50:01 With:Claudia Ellington Address: [address] [place], [place] [id number]- Business (1) When:Within 3 Day(s) [facility]12-07-2022 Hospital Discharge instructions Patient Education 07/08/2022 [...] until he or she recovers. Medicines Give owup-wqd-cnxzors and prescription medicines only as told by [...] 07/20/2006 Document Revised: 10/07/2019 Document Reviewed: 10/07/2019 [employer] Patient Education 2020 [employer]. Follow Up Care 07/08/2022 18:51:22 With:Claudia Rakel Address: [address] [place] [phone]- Business (1) When:07/11/2022 [facility]12-06-2022 Evaluation + Plan note Diagnostic Tests Pending * Rapid COVID Antigen ([facility]) 07/08/22 * Influenza A&B Ag 07/08/22 * Group A Strep by PCR 07/08/22 [facility]12-02-2022 Hospital Discharge instructions Patient Education 07/04/2022 [...] and regular daily exercise. Give your child tjba-ksi-awsfpxa and prescription medicines only as told by [...] to find more information Epilepsy Foundation: www.epilepsy.com [place] Epilepsy Society: www.aesnet.org Contact a health care [...] 10/29/2017 Document Revised: 11/10/2019 Document Reviewed: 10/29/2017 [employer] Patient Education 2020 [employer] 07/04/2022 19:27:04 Non-Epileptic Seizures, Pediatric Non-Epileptic [...] she has a seizure. Give your child rktf-mel-unfjiwl and prescription medicines only as told by [...] 10/26/2017 Document Revised: 07/02/2018 Document Reviewed: 10/26/2017 [employer] Patient Education 2020 [employer]. Follow Up Care 07/04/2022 18:04:21 With:Joann Zamorano Address: [facility] [address] [place] [address]- Business (1) When:07/07/2022 19:23:00 With:Claudia Ellington Address: [address] [place] [address] [place] [address]- Business (1) When:07/07/2022 19:22:49 Comments:Follow-up with your primary care provider in 3 to 5 days. If symptoms worsen, do not improve, or new symptoms arise please report back to emergency department for further evaluation. [facility]11-30-2022 Hospital Discharge instructions Patient Education 07/02/2022 [...] she has a seizure. Give your child nrzn-meo-kkiiedc and prescription medicines only as told by [...] 10/26/2017 Document Revised: 07/02/2018 Document Reviewed: 10/26/2017 [employer] Patient Education 2020 [employer]. 07/02/2022 16:03:45 Helping Your Child Manage Non-Epileptic [...] and regular daily exercise. Give your child faxv-xhb-kaaknun and prescription medicines only as told by [...] to find more information Epilepsy Foundation: www.epilepsy.com [place] Epilepsy Society: www.aesnet.org Contact a health care [...] 10/29/2017 Document Revised: 11/10/2019 Document Reviewed: 10/29/2017 [employer] Patient Education 2020 [employer]. Follow Up Care 07/02/2022 13:18:31 With:Joann Zamorano Address:Unknown When:07/05/2022 15:30:57 Comments:Follow-up with Dr. Zamorano for further evaluation of your seizure-like activity. With:Claudia Ellington Address: [address] [place], [place] [phone] [facility] (1) When:07/05/2022 15:30:49 Comments:Follow-up with your primary care provider in 3 to 5 days. If symptoms worsen, do not improve, or new symptoms arise please report back to emergency department for further evaluation. [facility]11-30-2022 Evaluation + Plan noteExtracted from: Title:ED Note Author:Karl MELÉNDEZ, Alexandru Kendall te:07/02/22 Seizure-like activity (R56.9 : Unspecified convulsions) Orders: Automated Diff Basic Metabolic Panel CBC w/ Auto Diff [facility] note No data available for this section [facility] HospitalEvaluation noteNo assessment information available [facility] Work Phone: Evaluation note* Diagnosis Onset Date Resolution Status Depression acute Suicidal ideations acute [facility] Work Phone: Evaluation note* Diagnosis Macromastia- Primary Hypertrophy of breast Thoracic spine pain Pain in thoracic spine [facility] No data available for this section [facility] Additional Instructions Regular Diet No Activity [facility] Work Phone: Progress note No data available for this section [facility] Summary Purpose Family History No Family [...] section and content) DATE CREATED AUTHOR 09/20/2018 [facility] DATE CREATED AUTHOR AUTHOR'S ORGANIZ ATION 10/27/2019 [facility] DATE CREATED AUTHOR AUTHOR'S ORGANIZ ATION 11/08/2022 [facility] DATE CREATED AUTHOR AUTHOR'S ORGANIZ ATION 03/11/2023 [facility] DATE CREATED AUTHOR AUTHOR'S ORGANIZ ATION 07/02/2023 [facility] DATE CREATED AUTHOR AUTHOR'S ORGANIZ ATION 07/10/2023 [place] DATE CREATED AUTHOR AUTHOR'S ORGANIZ ATION 01/13/2024 [facility] DATE CREATED AUTHOR AUTHOR'S ORGANIZ ATION 01/15/2024 [facility] DATE CREATED AUTHOR AUTHOR'S ORGANIZ ATION 01/15/2024 [facility] DATE CREATED AUTHOR AUTHOR'S ORGANIZ ATION 01/16/2024 [facility] DATE CREATED AUTHOR AUTHOR'S ORGANIZ ATION 01/26/2024 [facility] Care Team (unrecognized sect ion and content) Team Status: Inactive Member Role Status Dates Claudia Ellington MD Primary Care Provider, Attending Pr omer Active Team Status: Active Member Role Status Dates Claudia Ellington MD Primary Care Provider Active Team Status: Inactive Member Role Status Dates Claudia Ellington MD Primary Care Provider Active John Monson MD Admit Provider, Attending Provider Active 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 [employer] [facility]. provides no warranty or guarantee of the accuracy or completeness of information in this document.
== END 2024-01-27 17:08 | disposition home or self-care (01) ==
PROVIDERS: PCP Family Medicine; Visit Provider Family Medicine
DX: J20.9 Acute bronchitis, unspecified (principal)
CPT/HCPCS: 71046

== ENCOUNTER 2024-03-11 09:40 | Outpatient (REF) | payer OTHER, SELFPAY ==
--- OUTSIDE RECORDS SUMMARY | 2024-03-11 09:59 | XMS_ITS | CCD ---
Author Organization [facility] Care Team Providers Care Shop Coordinator Name Role Phone Martina Bedolla Attending Unavailable HoyPatrickClaudia Valeriy Referring Unavailable Hoy Claudia Valeriy Primary Care Unavailable Liss Aburto Attending Unav ailable HoyClaudia Referring Unavailable Hoy, Claudia Valeriy Primary Care Unavailable Martina Bedolla Attending Unavailable Hoy Claudia Valeriy Referring Unavailable Hoy, Claudia Valeriy Primary Care Unavailable Martina Bedolla Attending Unavailable Hoy, Claudia Valeriy Referring Unavailable Hoy, Claudia Valeriy Primary Care Unavailable Claudia Ellington Primary Care Physician MD Claudia Ellington Primary Care Provider [phone] MD Claudia Ellington Attending Provider RAKEL ., [...] DR TAYLOR Admdarwin Unavailable HOY ., DR TAYLRO Admdarwin Unavailable HOY ., DR TAYLOR Primary [...] Unavailable HOY, CLAUDIA M Primary Care Unavailable RAKELCLAUDIA M Referring Unavailable RAKELCLAUDIA M Primary Care Unavailable RADHA DANIEL Attending Unavailable RAKEL CLAUDIA M Primary Care Unavailable HAN BOLAÑOS Referring Unavailable STEVE BAUM Attending Unavailable RAKELCLAUDIA M Primary Care Unavailable JUAN MIGUEL HUYNH Attending Unavailable HAN BOLAÑOS Referring Unavailable MD Claudia Ellington Primary Care Provider [phone] MD John Monson Admit Provider MD John Monson Attending Provider Claudia Ellington MD Primary Care Provider [phone] VALORIE HANSEN Attending Unavailable RAKEL CLAUDIA M Primary Care Unavailable RAKEL CLAUDIA Pike Referring Unavailable Lawrence Reveles Attending Unavailable [place], Melecio Consulting Unavailable Jennifer RETANA Admitting Unavailable Ramiro, MD Majano Consulting Unavailable [place], Melecio Consulting Unavailable [place], Melecio Consulting Unavailable [place], Melecio Consulting Unavailable [place], Melecio Consulting Unavailable [place], Melecio Consulting Unavailable [place], Melecio Consulting Unavailable [place], Melecio Consulting Unavailable Radha Whipple Attending Unavailable Sole, Radha Attending Unavailable CHERYL QUIROZ Referring Unavailabl e Akosua LR Admitting Unavailable AMIAkosua Stokes Attending Unavailable Ramiro, Melecio Consulting Unavailable Ramiro, MD Majano Consulting Unavailable [place], Melecio Consulting Unavailable [place], Melecio Consulting Unavailable [place], Melecio Consulting Unavailable [place], Melecio Consulting Unavailable [place], Melecio Consulting Unavailable [place], Melecio Consulting Unavailable [place], Melecio Consulting Unavailable MISTY MACKEY Attending Unavailable MISTY MACKEY Admitting Unavailable Migue Farrell Attending Unavailable Radha Whipple Attending Unavailable PEYTON QUIROZ Attending Unavailable Rakel Claudia M Primary Care Unavailable John Monson Admitting Unavailable John Monson Attending Unavailable Claudia Ellington Primary Care Unavailable Robson White Admitting Unavailab Robson Aj Attending Unavailab Noel Manning Admitting Unavailabl e Hoy, Claudia M Primary Care Unavailable Peyton Quiroz Attending Unavailable Migue Farrell Attending Unavailable Zenon Hernandez Attending Unavailable Zenno Hernandez Referring Unavailable Radha Cantor Attending Unavailable Zenon Hernandez Admitting Unavailable Zenon Hernandez Attending Unavailable Zenon Hernandez Referring Unavailable Radha Cantor Admitting Unavailable Radha Cantor Attending Unavailable Radha Cantor Referring Unavailable MISTY MACKEY Admitting Unavailable MISTY MACKEY Attending Unavailable MISTY MACKEY Attending Unavailable MISTY MACKEY Admitting Unavailable Medications Current Medications Medication Drug Class(es) Dates Sig (Normalized) Sig (Original) acetaminophen 325 mg / butalbital 50 mg / caffeine 40 mg oral tablet (9 sources) Barbiturate, Central Nervous System Stimulant, Methylxanthine [...] / HYDROcodone bitartrate 5 mg oral tablet (6 sources) Opioid Agonist Start: 01-13-2024 take 1 tablet by mouth every six hours as needed for pain and pain, then take 8 tablets by mouth every four to six hours as needed for pain and pain State Line 325 mg-5 mg oral tablet 1 tab(s), [...] Ordered cetirizine hydrochloride 5 mg oral tablet (9 sources) Histamine-1 Receptor Antagonist Start: 05-11-2023 take 2 tablets by mouth once daily cetirizine 5 mg oral tablet 10 mg = 2 tab(s), Oral, Daily, # 30 tab(s), Refills(s) 0 Start Date: 05/11/23 Status: Ordered Start: 03-10-2023 take 20 mg by mouth once daily Cetirizine Active 20 MG PO Daily March 10, 2023 12:00am cloNIDine hydrochloride 0.1 mg oral tablet (10 sources) Central alpha-2 Adrenergic Agonist Start: 05-11-2023 take 1 tablet by mouth once daily cloNIDine 0.1 mg tab 0.1 mg = 1 tab(s), Oral, Daily, Refills(s) 0 Start Date: 05/11/23 Status: Ordered Start: 03-10-2023 End: 03-13-2023 take 0.15 mg by mouth at bedtime Clonidine Hcl Active 0.15 MG PO Bedtime March 13, 2023 9:40am Norethindrone-E.Estradiol-Ir on (12 sources) Estrogen Start: 03-10-2023 Norethindrone-E.Estradiol-Ir on (08/22 [...] 0 Active famotidine 10 mg oral tablet (6 sources) Histamine-2 Receptor Antagonist Start: 01-13-2024 take 1 tablet by mouth twice daily as needed for pain Pepcid AC 10 mg oral tablet 10 mg = 1 tab(s), Oral, BID, PRN Pain, # 30 tab(s), Refills(s) 0, Pharmacy: [facility]/pharmacy #[id number], 165.1, cm, 01/13/24 18:35:00 EDT, Height/Length [...] Status: Ordered FLUoxetine 40 mg oral capsule (11 sources) Serotonin Reuptake Inhibitor Start: 12-19-2022 FLUoxetine [...] BID, # 60 tab(s), Refills(s) 0, Pharmacy: [facility]/pharmacy #[id number], 165.1, cm, 05/11/23 8:01:00 EDT, [...] anxiety, # 15 tab(s), Refills(s) 0, Pharmacy: [facility]/pharmacy #[id number], 165, cm, 07/04/22 18:11:00 EST, Height/Length Dosing, 103.4, kg, 07/04/22 18:11:00 EST, Weight Dosing Start Date: 07/04/22 Status: Ordered lurasidone hydrochloride 60 mg oral tablet (11 sources) Atypical Antipsychotic Start: 03-10-2023 take 60 [...] (1 source) Polyene Antifungal Start: 06-16-2023 nystatin [id number] UNIT/GM Powder powder Apply 1 Application topically. 0 06/16/2023 Active ondansetron 4 mg disintegrating oral tablet (1 source) Serotonin-3 Receptor Antagonist Start: 06-18-2023 End: 06-18-2023 take 1 tablet by mouth once Ondansetron 4 MG Tab Dispersible tablet Take 1 tablet by mouth once. 0 06/18/2023 Active pantoprazole 40 mg oral granules (11 sources) Proton Pump Inhibitor Start: 05-11-2023 pantoprazole [...] Pain, # 8 tab(s), Refills(s) 0, Pharmacy: [facility]/pharmacy #[id number], 165.1, cm, 01/12/24 15:00:00 EDT, Height/Length Dosing, 117.7, kg, 01/12/24 15:00:00 EDT, Weight Dosing Start Date: 01/12/24 Status: Ordered Zofran ODT 4 mg Tab-Dis (7 sources) Start: 01-12-2024 take 1 tablet by mouth every eight hours as needed for nausea Zofran ODT 4 mg Tab-Dis 4 mg = 1 tab(s), Oral, q8hr, PRN Nausea/Vomiting, # 12 tab(s), Refills(s) 0, Pharmacy: [facility]/pharmacy #[id number], 165.1, cm, 01/12/24 15:00:00 EDT, Height/Length [...] hydrochloride 10 MG Extended Release Oral Tablet (10 sources) Start: 12-19-2022 take 1 tablet by [...] Date Documented Da te Episodic/Chronic Abdominal pain (6 sources) Generalized abdominal pain; Translations: [Generalized abdominal pain] Onset: 4 Episodic Acute bronchitis (1 source) Acute bronchitis, unspecified; Translations: [ACUTE BRONCHITIS UNSPECIFIED] Onset: 3 Episodic Anxiety disorders (8 sources) Anxiety 05-11-2023 Chronic Conditions associated with [...] status epilepticus] Onset: 2 Chronic Epilepsy; convulsions (20 sources) Seizure; Translations: [Unspecified convulsions] Onset: 2 Episodic Fluid and electrolyte disorders (1 source) Hypokalemia; Translations: [Hypokalemia] Onset: 3 Episodic Menstrual disorders (4 sources) Excessive and frequent menstruation with irregular cycle; Translations: [EXCESS AND FREQ MEN W/IRREG CYCLE] Onset: 2 Chronic Mood disorders (14 sources) Depressive disorder; Translations: [Depression] Onset: 3 07-15-2017 Chronic Nausea and vomiting (3 sources) Nausea with vomiting, unspecified; Translations: [Nausea] Onset: 2 Episodic Noninfectious gastroenteritis (5 sources) Gastroenteritis 01-20-2024 Episodic Nonmalignant breast conditions (1 source) Large breast; Translations: [Hypertrophy of breast] 06-30-2023 Episodic Other aftercare (1 source) Long-term current use of drug therapy; Translations: [Other termite control service representative (current) drug therapy] Onset: 3 Episodic Other gastrointestinal disorders (1 source) H/O: gastrointestinal disease; Translations: [Personal history of other diseases of the digestive system] Onset: 3 Episodic Other liver diseases (1 source) Enzyme level - finding; Translations: [Abnormal levels of other serum enzymes] Onset: 4 Episodic Other nutritional; endocrine; and metabolic disorders (2 sources) Obesity; Translations: [Obesity, unspecified] Onset: 3 Chronic Other nutritional; endocrine; and metabolic disorders (1 source) Morbid obesity; Translations: [Morbid (severe) obesity due to excess calories] Onset: 3 Chronic Other nutritional; endocrine; and metabolic disorders (6 sources) Body mass index 40+ - severely obese; Translations: [Morbid (severe) obesity due to excess calories] Onset: 3 06-30-2023 Chronic Other nutritional; endocrine; and metabolic disorders (4 sources) Obesity caused by energy imbalance 02-09-2024 Chronic Other screening for suspected conditions (not mental disorders or infectious disease) (2 sources) Encounter for observation for other suspected diseases and conditions ruled out; Translations: [Encounter for observation for other suspected diseases and conditions ruled out] Onset: 4 Episodic Other upper respiratory disease (1 source) Seasonal allergic rhinitis; Translations: [Other seasonal allergic rhinitis] Onset: 3 Chronic Other upper respiratory infections (5 sources) Acute sinusitis, unspecified; Translations: [ACUTE SINUSITIS UNSPECIFIED] Onset: 2 Episodic Pancreatic disorders (not diabetes) (7 sources) Acute pancreatitis; Translations: [Acute pancreatitis without necrosis or infection, unspecified] Onset: 4 Episodic Poisoning by other medications and drugs (2 sources) Accidental acetaminophen poisoning; Translations: [Poisoning by 4-Aminophenol derivatives, accidental (unintentional), initial encounter] Onset: 3 Episodic Residual codes; unclassified (1 source) FH: Gastrointestinal disease; Translations: [Family history of other diseases of the digestive system] Onset: 4 Episodic Residual codes; unclassified (5 sources) Family history of disorder of pancreas 01-22-2024 Episodic Spondylosis; intervertebral disc disorders; other back problems (1 source) Pain in thoracic spine; Translations: [Pain in thoracic spine] 06-30-2023 Episodic Substance-related disorders (18 sources) Smoker; Translations: [Nicotine dependence] Onset: 4 [...] INVLV CIRC RS] Onset: 07-31-2022 Episodic Other injuries and conditions due to external causes (5 sources) Injury of head; Translations: [Unspecified injury of head, initial encounter] Onset: 03-16-2023 Episodic Other upper respiratory disease (1 source) Nasal congestion; Translations: [NASAL CONGESTION] Onset: 08-08-2022 Episodic Residual codes; unclassified (1 source) Pain, unspecified; Translations: [PAIN UNSPECIFIED] Onset: 03-08-2022 Episodic Residual codes; unclassified (5 sources) Insomnia; Translations: [Insomnia, unspecified] Onset: 05-11-2023 Episodic Suicide and intentional self-inflicted injury (11 sources) Suicidal thoughts; Translations: [Suicidal ideations] Onset: 12-05-2021 Episodic Unclassified (1 source) CONTACT W/AND (SUSP) EXPOS COVID-19; Translations: [CONTACT W/AND (SUSP) EXPOS COVID-19] Onset: 09-11-2022 Unclassified (1 source) COUGH, UNSPECIFIED; Translations: [COUGH, UNSPECIFIED] Onset: 07-24-2022 Results Test Name Value Interpretation Reference Range Facility CT Abdomen w/ Contraston CT Abdomen w/ Contrast Exam Date/Time: 03/03/2024 08:22 EDT Reason for Exam: K85.90;Pancreatitis Report IMPRESSION: CONSTIPATION. CT OF THE ABDOMEN WITHOUT INTRAVENOUS CONTRAST MEDIUM. History: Pancreatitis, K85.90. Right-sided abdominal pain for one month. Technical Factors: CT imaging of the abdomen were obtained and formatted as 5 mm contiguous axial images from the domes of the diaphragm to the pelvic brim. Sagittal and coronal reconstructions were also obtained. Oral contrast medium: Barium sulfate, 900 mL. Intravenous contrast medium: None. Comparison: CT abdomen, January 13, 2024. Findings: Lower chest: Cardiac size normal. No pericardial effusion. No coronary artery calcification. Lung bases are clear. Liver: Normal in size, shape, and attenuation. Bile Ducts: Normal in caliber. Gallbladder: No stones or wall thickening. Pancreas: Normal without masses, cysts, ductal dilatation or calcification. No peripancreatic fluid collections. No peripancreatic fat stranding. Spleen: Normal in size without masses or calcifications. No splenules. Kidneys: Normal in size. No hydronephrosis, masses, or stones. Adrenals: Normal. Small bowel: Normal in caliber. Appendix: Normal. Colon: Normal in caliber. Copious stool throughout colon, greatest in ascending and transverse colon. Report Peritoneum: No ascites, free air, or fluid collections. Vessels: Aorta normal in course and caliber. Lymph nodes: Retroperitoneal: No enlarged retroperitoneal lymph nodes. Mesenteric: No enlarged mesenteric lymph nodes. Ureters: Image ureters normal in course and caliber. No calcifications. Abdominal Wall: 1.2 cm fat-containing periumbilical anterior abdominal wall defect. No diastasis of rectus musculature. No edema or masses. Bones: No bone lesions. No degenerative changes. No post operative changes. All CT scans at this facility use dose modulation, iterative reconstruction, and/or weight based dosing when appropriate to reduce radiation dose to as low as reasonably achievable. Ordering Provider: Zenon Hernandez FINAL REPORT Dictated: 03/04/2024 7:13 pm Thierry Mcknight MD Signed (Electronic Signature): 03/04/2024 7:13 pm Signed by: Thierry Mcknight MD Transcribed by: GARTH Technologist: CALLI Technical Comments GFR (mL/min/1/73m2) na Contrast: Isovue 300 Contrast amount in ml's: 100 Rectal Contrast Given? No Oral contrast amount in ml's: 900 Normal [facility] CHEMISTRYOrdered By: SYSTEM SYSTEM on 03-03-2024 25-hydroxyvitamin D3 [Mass/Vol] 18.5 ng/mL Low 30.0 - 100.0 ng/mL Remisol Chem Cholesterol [Mass/Vol] 225 mg/dL High 120 - 200 mg/dL Remisol Chem Cholesterol in HDL [Mass/Vol] 53 mg/dL Invalid Interpretation Code Remisol Chem Comment on above: Result Comment: '>= 60 LOW RISK' '<= 40 HIGH RISK' Cholesterol in LDL [Mass/Vol] 165 mg/dL High <=129mg/dL Remisol Chem Cholesterol in VLDL [Mass/Vol] 35 mg/dL Normal 7 - 40 mg/dL Remisol Chem Glucose [Mass/Vol] 91 mg/dL Normal 55 - 99 mg/dL Remisol Chem Triglyceride [Mass/Vol] 173 mg/dL High <=149mg/dL Remisol Chem CHEMISTRYOrdered By: Tiesha Newby on 03-03-2024 HbA1c (Bld) [Mass fraction] 5.3 % Normal <=5.9% [facility] ChemAutoSS Glu Fastingon 03-03-2024 Glucose [Mass/Vol] 91 mg/dL Normal 55-99 [facility] Comment on above: Performed By: #### 2 [id number] #### [facility] [address] [place] [address] [id number] 03-03-2024 HbA1c (Bld) [Mass fraction] 5.3 % Normal <=5.9 [facility] Comment on above: Performed By: #### [id number] #### [facility] [address] [place] [address] Lipid Panelon 03-03-2024 Cholesterol [Mass/Vol] 225 mg/dL High 120-200 [facility] Comment on above: Performed By: #### 2 [id number] #### [facility] [address] [place] [address] Cholesterol in HDL [Mass/Vol] 53 mg/dL Invalid Interpretation Code [facility] Comment on above: Result Comment: '>= 60 LOW RISK' '<= 40 HIGH RISK' Performed By: #### 2 [id number] #### [facility] [address] [place] [address] Cholesterol in LDL [Mass/Vol] 165 mg/dL High <=129 [facility] Comment on above: Performed By: #### 2 [id number] #### [facility] [address] [place] [address] Cholesterol in VLDL [Mass/Vol] 35 mg/dL Normal 7-40 [facility] Comment on above: Performed By: #### 2 [id number] #### [facility] [address] [place] [address] Triglyceride [Mass/Vol] 173 mg/dL High <=149 [facility] Comment on above: Performed By: #### 2 [id number] #### [facility] [address] [place] [address] Vitamin D 25 Hydroxyon 03-03 25-hydroxyvitamin D3 [Mass/Vol] 18.5 ng/mL Low 30.0-100.0 [facility] Comment on above: Performed By: #### 5 [id number] #### [facility] [address] [place] [address] US Gallbladderon 02-17-2024 US Gallbladder Exam Date/Time: 02/16/2024 10:40 EDT Reason for Exam: Right upper quadrant pain;Abdominal pain Report IMPRESSION: NO ACUTE FRACTURES EXAMINATION: Gallbladder ultrasound CLINICAL HISTORY: Abdominal pain COMPARISONS: None FINDINGS: The exam is limited due to patient body habitus The liver shows no focal parenchymal abnormality or intrahepatic biliary dilatation. The gallbladder shows no surrounding pericholecystic fluid. The wall is not thickened and measures 2.0 mm. Common bile duct measures 3.2 mm. The visualized portions of pancreas unremarkable. The kidney shows no surrounding perinephric fluid collection. No hydronephrosis. Ordering Provider: Radha Cantor FINAL REPORT Dictated: 02/17/2024 7:46 pm Mika Devine Signed (Electronic Signature): 02/17/2024 7:46 pm Signed by: Mika Devine Transcribed by: GARTH Technologist: LI Iqbal [facility] General Surgery Office/Clini c Noteon 02-09-2024 General Surgery Office/Clinic Note General Surgery Office/Clinic Note Chief Complaint REFERENCE LIBRARY ASSISTANT Right sided pain HPI Staff REFERENCE LIBRARY ASSISTANT Rose Mary is a 18 y.o. female here for surgical consult Dr. Hernandez referring Patient has a hx of pancreatitis and family hx of pancreatitis. Last flare up CT abd/pel done 01/13/2024 She is having right sided pain History of Present Illness Consent: The patient or their guardian verbally consented to allow Rhina Justina Red to record this visit. Rose Mary Schneider is a 18-year-old female who was referred to us for evaluation of right upper quadrant pain. The patient reports a history of multiple hospital admissions due to right upper quadrant pain. Her most recent visit to our emergency room was on 01/13/2024, during which there was a concern for acute pancreatitis, although imaging was negative at that time. There was only a mild elevation of lipase to 158. Upon inquiry about the location of pain, the patient reports right upper quadrant pain radiating to the right flank. She also experiences pain following consumption of fatty, greasy foods, and milkshakes. Upon evaluation in the ER, her white blood cell count and hepatic function panel were within normal limits, with the exception of a slightly elevated lipase. Review of Systems ROS - Provider Constitutional: No fever, no sweats, no weight loss. Eyes: No glasses, no blurred vision, no visual loss. ENMT: No dentures, no hoarseness, no swallowing difficulties, no hearing loss, no ear infection(s), no nose bleeds. Cardiovascular: Normal blood pressure, no chest pain, regular heartbeat, no heart murmur. Respiratory: No shortness of breath, no cough, no asthma, no wheezing. Gastrointestinal: No nausea, no vomiting, no diarrhea, no constipation, no blood in stool, no change in bowel habits, no abdominal pain, no hepatitis. Genitourinary: No kidney stones, no urine infection, no dysuria. Musculoskeletal: No pain, no weakness. Skin: No changing moles, no rash, no skin lumps. Neurologic: No seizures, no epilepsy, no headache. Psychiatric: No emotional or psychiatric problem. Heme/Lymph: No bleeding problems, no anemia, no blood clots, no transfusions. Allergy/Immunologic: No swollen lymph nodes/glands, no IV drug abuse. Other: Additional ROS info: Except as noted in the above Review of Systems and in the History of Present Illness, all other systems have been reviewed and are negative or noncontributory. Physical Exam Vitals & Measurements HR: 92(Peripheral) BP: 110/80 HT: 65 in HT: 165 cm WT: 115 kg WT: 253 lb BMI: 42.24 General: No acute distress Eyes: Normal conjunctiva, sclera clear, no scleral icterus, EOM intact, PERRLA. Neck: Trachea midline Respiratory: Respirations non labored. Cardiovascular: Regular rate and rhythm, Gastrointestinal: She has right upper quadrant tenderness that is minimal. However, she is nontender elsewhere. Musculoskeletal: Normal gait, digits and nails without infection, nodes, cyanosis, clubbing. Skin: No rashes, no lesions, no ulcers, no subcutaneous nodules, induration. Psychiatric/Neuro: Oriented to time, place, person, judgement normal, affect appropriate for age, insight intact, no focal deficits. Lymphatic: No cervical lymphadenopathy Assessment/Plan The patient is a 18-year-old female with right upper quadrant pain. 1. Right upper quadrant pain (R10.11: Right upper quadrant pain) A right upper quadrant ultrasound will be obtained to evaluate for cholelithiasis. Should the ultrasound yield negative results, a reevaluation with a HIDA scan will be conducted. 2. BMI 40.0-44.9, adult (Z68.41: Body mass index [BMI] 40.0-44.9, adult) 3. Obesity due to excess calories (E66.09: Other obesity due to excess calories) 4. Smoker (F17.200: Nicotine dependence, unspecified, uncomplicated) Portions of this record may have been created with voice recognition artificial intelligence software, specifically Client Outlook, Phase Eight and or [place]. Substitutions may have occurred due to the inherent limitations of voice recognition and artificial intelligence software. ATTESTATION: Documentation services were performed after patient or guardian consented to allow [employer] to record this visit. CORINNE e learning specialist and provider reviewed before signing. CORINNE: Martin Porter. Follow-up No qualifying data available Problem List/Past Medical History Ongoing Acute pancreatitis BMI 40.0-44.9, adult Family history of pancreatitis Gastroenteritis Injury of head Insomnia Obesity due to excess calories Right upper quadrant pain Smoker Historical Seizure Procedure/Surgical History Myringotomy and drainage of middle ear. Medications APAP/butalbital/caffeine 325 mg-50 mg-40 mg Tab, 1 tab(s), Oral, q4hr, PRN cetirizine 5 mg oral tablet, 10 mg= 2 tab(s), Oral, Daily cloNIDine 0.1 mg tab, 0.1 mg= 1 tab(s), Oral, Daily FLUoxetine 40 mg Cap 08/04 (more content not included)... 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 Visit Date:01/22/2024 Ambulatory Visit Instructions Your Diagnosis Acute pancreatitis Smoker Family history of pancreatitis Your Care Team Attending Physician - Zenon Hernandez MD Primary Care Physician - Claudia Ellington MD This Is Your Medications List Contact prescribing physician if questions or concerns APAP/butalbital/caffeine (APAP/butalbital/caffeine 325 mg-50 mg-40 mg Tab) acetaminophen-hydrocodone ([place] 325 mg-5 mg oral tablet) cetirizine (cetirizine 5 mg oral tablet) clonidine (cloNIDine 0.1 mg tab) ethinyl estradiol-norethindrone (08/22 oral tablet) famotidine (Pepcid AC 10 mg [...] Ambulatory, Reason: Pancreatitis, No, No, Acute pancreatitis [facility] Gastroenterology Office/Clin ic Noteon 01-22-2024 Gastroenterology Office/Clinic Note Chief Complaint follow up to er, abdominal pain, pancreatitis HPI Staff This is a 18 year old female who presents today for a follow up from [facility] [facility] on 01/12/2024 and 01/13/2024 abdominal pain, generalized abd pain [facility] ED: 01/13/2024 Chief Complaint seen here yesterday told she was just shy of pancreatitis. states abdominal pain worse. 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 denies n/v History of Present Illness [...] currently on control. Discharge Prescription List Prescriptions [place] 325 mg-5 mg oral tablet, 1 tab(s), Oral, q6hr, PRN Pepcid AC 10 mg oral tablet, 10 mg= 1 tab(s), Oral, BID, PRN [facility] ED: 01/12/2024 Chief Complaint abd pain all [...] 84.7 fL (01/13/24) Chloride: 105 mmol/L (01/13/24) [place] Absolute: 0.5 E9/L (01/13/24) CO2: 27 mmol/L (01/13/24) [place] Auto: 7.4 % (01/13/24) Creatinine: 0.8 mg/dL [...] soft, nontender (more content not included)... 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 Patient will be sent home with pain [...] Nausea/Vomiting, # 12 tab(s), Refills(s) 0, Pharmacy: [facility]/pharmacy #[id number], 165.1, cm, 01/12/24 15:00:00 EDT, Height/Length Dosing, 117.7, kg, 01/12/24 15:00:00 EDT, Weight Dosing 3. Elevated lipase (R74.8: Abnormal levels of other serum enzymes) Ordered: tram (more content not included)... Normal [facility] Comment on above: Result Comment: Elec tronically Signed By: Liss Schroeder PA-C\.br\Date and Time Signed: 01/12/24 17:06 EDT\.br\Electronically Co-Signed By: Radha Whipple DO\.br\Date and Time Co-Signed: 01/15/24 07:[address] Abdomen/Pelvis w/ Kranthi hayward 01-14-2024 CT Abdomen/Pelvis w/ Contrast Exam Date/Time: [...] 300 Contrast amount in ml's: 100 Normal [facility] ED Note-Physicianon 01-14-20 ED Note-Physician Basic Information Time Seen: Mirella Camilo PA-C 01/13/2024 18:36 Chief Complaint seen here yesterday told she was just shy of pancreatitis. states abdominal pain worse. 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 denies n/v History of Present Illness [...] processes. The patient is being discharged with [place] and Pepcid for pain management. Patient states [...] Pain, # 30 tab(s), Refills(s) 0, Pharmacy: [facility]/pharmacy #[id number], 165.1, cm, 01/13/24 18:35:00 EDT, Height/Length [...] Discharge Disposition home Discharge Prescription List Prescriptions State Line 325 mg-5 mg oral tablet, 1 tab(s), Oral, q6hr, PRN Pepcid AC 10 mg oral tablet, 10 mg= 1 tab(s), Oral, BID, PRN Follow- (more content not included)... Normal [facility] Comment on above: Result Comment: Elec tronically Signed By: Mirella Camilo PA-C\.br\Date and Time Signed: 01/13/24 21:12 EDT\.br\Electronically Co-Signed By: Mirella Camilo PA-C\.br\Date and Time Co-Signed: 01/14/24 00:04 EDT\.br\Electronically Co-Signed By: Migue Farrell M.D.\.br\Date and Time Co-Signed: 01/14/24 07:02 EDT BMPon 01-13-2024 Anion gap [Moles/Vol] 9 mmol/L Normal 6-16 [facility] Comment on above: Performed By: #### 2 [id number] #### [facility] [address] [place] [address] Calcium [Mass/Vol] 8.6 mg/dL Low 8.9-11.1 [facility] Comment on above: Performed By: #### 2 [id number] #### [facility] [address] [place] [address] Chloride [Moles/Vol] 105 mmol/L Normal 101-111 [facility] Comment on above: Performed By: #### 2 [id number] #### [facility] [address] [place] [address] CO2 [Moles/Vol] 27 mmol/L Normal 21-31 [facility] Comment on above: Performed By: #### 2 [id number] #### [facility] [address] [place] [address] Creatinine [Mass/Vol] 0.8 mg/dL Normal 0.5-1.3 [facility] Comment on above: Performed By: #### 2 [id number] #### [facility] [address] [place] [address] Glucose [Mass/Vol] 96 mg/dL Normal 55-199 [facility] Comment on above: Performed By: #### 2 923883 #### [facility] [address] [place] [address] Potassium [Moles/Vol] 3.6 mmol/L Normal 3.5-5.3 [facility] Comment on above: Performed By: #### 2 167383 #### [facility] [address] [place] [address] Sodium [Moles/Vol] 137 mmol/L Normal 135-145 [facility] Comment on above: Performed By: #### 2 458143 #### [facility] [address] [place] [address] Urea nitrogen [Mass/Vol] 9 mg/dL Normal 5-21 [facility] Comment on above: Performed By: #### 2 [id number] #### [facility] [address] [place] [address] Urea nitrogen/Creatinine [Mass ratio] 11 No Units Normal 10-20 [facility] Comment on above: Performed By: #### 2 [id number] #### [facility] [address] [place] [address] CBC w/ Auto Diffon 4 Basophils/100 WBC (Bld) 0.6 % Normal 0.0-2.0 [facility] Comment on above: Performed By: #### 2 [id number] #### [facility] [address] [place] [address] Basophils/Leukocytes Auto (Bld) [Pure # fraction] 0.0 E9/L Normal 0.0-0.2 [facility] Comment on above: Performed By: #### 2 066070 #### [facility] [address] [place] [address] Eosinophils (Bld) [#/Vol] 0.2 E9/L Normal 0.0-0.5 [facility] Comment on above: Performed By: #### 2 683129 #### [facility] [address] [place] [address] Eosinophils/100 WBC (Bld) 2.6 % Normal 0.0-8.0 [facility] Comment on above: Performed By: #### 2 973997 #### [facility] [address] [place] [address] Erythrocyte distribution width (RBC) [Ratio] 13.8 % Normal 10.9-14.2 [facility] Comment on above: Performed By: #### 2 150047 #### [facility] [address] [place] [address] Hematocrit (Bld) [Volume fraction] 35.6 % Normal 34.0-46.0 [facility] Comment on above: Performed By: #### 2 648893 #### [facility] [address] [place] [address] Hemoglobin (Bld) [Mass/Vol] 11.8 g/dL Low 12.0-16.0 [facility] Comment on above: Performed By: #### 2 069092 #### [facility] [address] [place] [address] Lymphocytes (Bld) [#/Vol] 2.9 E9/L Normal 1.0-4.0 [facility] Comment on above: Performed By: #### 2 525559 #### [facility] [address] [place] [address] Lymphocytes/100 WBC (Bld) 40.4 % Normal 14.0-50.0 [facility] Comment on above: Performed By: #### 2 361414 #### [facility] [address] [place] [address] MCH (RBC) [Entitic mass] 28.0 pg Normal 27.0-34.0 [facility] Comment on above: Performed By: #### 2 994354 #### [facility] [address] [place] [address] MCHC (RBC) [Mass/Vol] 33.1 g/dL Normal 31.4-36.0 [facility] Comment on above: Performed By: #### 2 739685 #### [facility] [address] [place] [address] MCV (RBC) [Entitic vol] 84.7 fL Normal 80.0-100.0 [facility] Comment on above: Performed By: #### 2 458841 #### [facility] [address] [place] [address] Monocytes (Bld) [#/Vol] 0.5 E9/L Normal 0.2-1.0 [facility] Comment on above: Performed By: #### 2 507158 #### [facility] [address] [place] [address] Neutrophils (Bld) [#/Vol] 3.5 E9/L Normal 2.0-7.5 [facility] Comment on above: Performed By: #### 2 255682 #### [facility] [address] [place] [address] Neutrophils/100 WBC (Bld) 49.0 % Normal 36.0-75.0 [facility] Comment on above: Performed By: #### 2 948068 #### [facility] [address] [place] [address] Platelet mean volume (Bld) [Entitic vol] 8.1 fL Normal 6.4-10.8 [facility] Comment on above: Performed By: #### 2 889182 #### [facility] [address] [place] [address] Platelets (Bld) [#/Vol] 394.0 E9/L Normal 150.0-500.0 [facility] Comment on above: Performed By: #### 2 506658 #### [facility] [address] [place] [address] RBC (Bld) [#/Vol] 4.2 E12/L Low 4.3-5.9 [facility] Comment on above: Performed By: #### 2 520628 #### [facility] [address] [place] [address] WBC corrected for nucl RBC Auto (Bld) [#/Vol] 7.1 E9/L Normal 4.0-11.0 [facility] Comment on above: Performed By: #### 2 795468 #### [facility] [address] [place] [address] CHEMISTRYOrdered By: SYSTEM SYSTEM on 01-13-2024 Albumin [...] Consent for Treatmenton 01-01 Consent for Treatment [id number] Normal [facility] Discharge Instructionson Discharge Instructions [id number] Normal [facility] ED Clinical Summaryon 2023 ED Clinical Summary (Inserted Image. Nida ble to display) [place] [id number] ED Clinical Summary Person Information Name: ROES MARY SCHNEIDER/[place] Age: 18 Years : 2005 Sex: Female Language: Guatemalan PCP: Claudia Ellington MD Marital Status: Single Phone: [phone] Visit Id: Visit Reason: Abdominal pain; AB [...] 01/13/2024 21:12:34 01/13/2024 21:12:34 01/13/2024 21:12:34 ADDRESS: [address] [place] [phone] PHYS DOC NOTES: MEDICAL INFORMATION: Prescriptions Given: New Medications [facility]/pharmacy #[id number], [address], [place] [id number], [phone] acetaminophen-hydrocodone ([place] 325 mg-5 mg oral tablet) 1 Tablets [...] 0. PATIENT EDUCATION INFORMATION: Instructions: Acute Pancreatitis, Bqnr-qv-Soib Follow up: With: Address: When: Zenon Hernandez [address] [place] [address] [address] [place] [id number] [phone] MR Presta (1) In 3 days 01/16/2024 Comments: Call to schedule an appointment with the director business travel for further management of care With: Address: When: Claudia Rakel [facility] [place] [phone] MR Presta (1) In 3 days DIAGNOSIS: Acute pancreatitis; Mild nausea Normal [facility] ED Patient Education Noteon 01-13-2024 ED [...] these instructions at home: Medicines ? Take tjut-wsv-etuumlq and prescription medicines only as told by [...] provider. Document Revised: 06/10/2022 Document Reviewed: 06/10/2022 [employer] Patient Education ? 2022 [employer]. Normal [facility] ED Patient Summaryon 024 ED Patient Summary (Inserted Image. Nida ble to display) [place] [id number] Patient Discharge Instructions Person Information Name: ROSE MARY SCHNEIDER Age: 18 Years Arrival Date: 01/13/2024 18:21:08 Discharge Diagnosis: Acute pancreatitis; Mild nausea Primary Care Physician: Claudia Ellington MD Provider Information Primary Provider: Ko Draper DO [employer] Partner:Mirella Camilo PA-C The exam and treatment you received in the Emergency Department were for an urgent problem and are not intended as complete care. It is important that you follow up with a doctor, nurse practitioner, or physician?s research assistant member for ongoing care. If your symptoms become [...] Follow-up Instructions: With: Address: When: Zenon Hernandez [address] [place] [address], [address] [place] [phone] Business (1) In 3 days 01/16/2024 Comments: Call to schedule an appointment with the director business travel for further management of care With: Address: When: Claudia Ellington [address] [place] [address], [place] [address] Business (1) In 3 days In the event that this physician does not participate in your insurance network, please consult with your insurance company to find a nearby participating provider. Patient Education Materials: Acute Pancreatitis, Qlkv-as-Vhsg A MESSAGE TO ALL PATIENTS REGARDING OPIOIDS PRESCRIPTION OPIOIDS: WHAT YOU NEED TO KNOW Prescription opioids can be used to help relieve lucweenw-ti-mpsegt pain and are often prescribed following a [...] and Drug Administration (www.fda.gov/Drugs/Resour cesForYou). ? Visit www.Mercora (more content not included)... Normal [facility] HEMATOLOGYOrdered By: SYSTEM SYSTEM on 01-13-2024 [...] 01-13-2024 Albumin [Mass/Vol] 3.4 g/dL Normal 3.3-5.0 [facility] Comment on above: Performed By: #### 2 [id number] #### [facility] [address] [place] [address] Albumin/Globulin (S) [Mass conc ratio] 1.0 Low 1.1-2.2 [facility] Comment on above: Performed By: #### 2 541363 #### [facility] [address] [place] [address] ALP [Catalytic activity/Vol] 45 Int._Unit/L Normal 21-98 [facility] Comment on above: Performed By: #### 2 738268 #### [facility] [address] [place] [address] ALT No additional P-5'-P [Catalytic activity/Vol] 11 Int._Unit/L Normal 6-46 [facility] Comment on above: Performed By: #### 2 822484 #### [facility] [address] [place] [address] AST [Catalytic activity/Vol] 12 Int._Unit/L Normal 5-43 [facility] Comment on above: Performed By: #### 2 434021 #### [facility] [address] [place] [address] Bilirubin [Mass/Vol] 0.3 mg/dL Normal 0.0-1.1 [facility] Comment on above: Performed By: #### 2 454876 #### [facility] [address] [place] [address] Bilirubin.direct [Mass/Vol] 0.0 mg/dL Normal 0.0-0.4 [facility] Comment on above: Performed By: #### 2 874648 #### [facility] [address] [place] [address] Bilirubin.indirect [Mass or moles/Vol] 0.3 mg/dL Normal 0.1-0.9 [facility] Comment on above: Performed By: #### 2 679183 #### [facility] [address] [place] [address] Globulin (S) [Mass/Vol] 3.3 g/dL Normal 1.4-4.0 [facility] Comment on above: Performed By: #### 2 640356 #### [facility] [address] [place] [address] Protein [Mass/Vol] 6.7 g/dL Normal 6.0-7.8 [facility] Comment on above: Performed By: #### 2 517116 #### [facility] [address] [place] [address] Lipase Levelon 01-13-2024 Lipase [Catalytic activity/Vol] 144 U/L High 13-58 [facility] Comment on above: Performed By: #### 2 762530 #### [facility] [address] [place] [address] RAD - Preliminary Cat Scan R eporton 01-13-2024 RAD - Preliminary Cat Scan Report [id number] Normal [facility] UA with Cult Rflxon 01-13-20 24 Bilirubin Ql (U) Negative Normal Negative [facility] Comment on above: Performed By: #### 4 [id number] ####[place] [id number] Clarity (U) Clear Normal Clear [facility] Comment on above: Performed By: #### 4 [id number] ####[facility] [address] [place] [address] Color (U) Colorless Abnormal Yellow [facility] Comment on above: Result Comment: Micr oscopic readings are only performed on those samples that meet specific criteria set forth by [facility]. Performed By: #### 4 [id number] ####[place] [address] [place] [address] Epithelial cells.squamous Auto (Urine sed) [#/Area] 0-2 Invalid Interpretation Code [facility] Comment on above: Performed By: #### 4 [id number] ####[facility] [address] [place] [address] Glucose Ql (U) Negative Normal Negative [facility] Comment on above: Performed By: #### 4 [id number] ####[place] [address] [place] [address] Hemoglobin Auto test strip (U) [Mass/Vol] 1+ mg/dL Abnormal Negative [facility] Comment on above: Performed By: #### 4 [id number] ####[facility] [address] [place] [address] Ketones Auto test strip Ql (U) Negative Normal Negative [facility] Comment on above: Performed By: #### 4 [id number] ####[facility] [address] [facility] [place] [address] Leukocyte esterase Auto test strip Ql (U) Negative Normal Negative [facility] Comment on above: Performed By: #### 4 [id number] ####[address] [place] [address] Mucus Auto Ql (U) Negative Normal Negative [facility] Comment on above: Performed By: #### 4 [id number] ####[address] [address] Nitrite Auto test strip Ql (U) Negative Normal Negative [facility] Comment on above: Performed By: #### 4 [id number] ####[address] [place] [address] pH (U) 6.5 [pH] Invalid Interpretation Code 5.0-9.0 [facility] Comment on above: Performed By: #### 4 [id number] ####[address] [place] [address] Protein Ql (U) Negative Normal Negative [facility] Comment on above: Performed By: #### 4 [id number] ####[place] [address] [facility] [place] [address] RBC Ql (U) 0-3 Normal 0-3 [facility] Comment on above: Performed By: #### 4 [id number] ####[address] [address] Specific gravity (U) [Rel density] 1.024 Invalid Interpretation Code 1.005-1.030 [facility] Comment on above: Performed By: #### 4 [id number] ####[address] [place] [address] Urobilinogen (U) [Mass/Vol] Negative Normal Negative [facility] Comment on above: Performed By: #### 4 [id number] ####[facility] [address] [place] [address] WBC Auto (Urine sed) [#/Area] 0-5 Normal 0-5 [facility] Comment on above: Performed By: #### 4 [id number] ####[facility] [address] [place] [address] Type of Urine collection method Clean Catch Normal [facility] Comment on above: Performed By: #### 4 [id number] ####[facility] [address] [place], [place] [address] URINALYSISOrdered By: SYSTEM SYSTEM on 01-13-2024 Bilirubin Ql (U) Negative Normal Negativemg/ dL FT UA Auto SS Clarity (U) Clear (01/13/24 7:41 PM) Normal Clear [facility] UA Auto SS Color (U) Colorless 1 *ABN* (01/13/24 7:41 PM) Invalid Interpretation Code Yellow [facility] UA Auto SS Comment on above: Interpretive Data: M icroscopic readings are only performed on those samples that meet specific criteria set forth by [facility]. Epithelial cells.squamous Auto (Urine sed) [...] strip Ql (U) Negative Normal NegativeLeu /uL [facility] UA Auto SS Mucus Auto Ql (U) Negative Normal Negativegr a ded/LPF [facility] UA Auto SS Nitrite Auto test strip Ql (U) Negative Normal Negativemg/ dL [facility] UA Auto SS pH (U) 6.5 *NA* (01/13/24 7:41 PM) Invalid Interpretation Code 5.0 - 9.0 [facility] UA Auto SS Protein Ql (U) Negative Normal Negativemg/ dL FT UA Auto SS RBC Ql (U) 0-3 graded/HPF Normal 0-3graded/H PF [facility] UA Auto SS Specific gravity (U) [Rel density] 1.024 *NA* (01/13/24 7:41 PM) Invalid Interpretation Code 1.005 - 1.030 [facility] UA Auto SS Urobilinogen (U) [Mass/Vol] Negative Normal Negativemg/ dL [facility] UA Auto SS WBC Auto (Urine sed) [#/Area] 0-5 graded/HPF Normal 0-5graded/H PF [facility] UA Auto SS URINALYSISOrdered By: Mirella Camilo on 01-13-2024 UA Spec Desc Clean Catch (01/13/24 7:41 PM) Normal [facility] UA Auto SS Work Phone: eGFRon 01-13-2024 eGFR 109 mL/min/1.73 m2 Normal >=59 [facility] Comment on above: Order Comment: Order added by Discern Expert. Performed By: #### 1 [id number] #### [facility] [address] [place] [address] CBC w/ Auto Diffon 4 Basophils/100 WBC (Bld) 0.4 % Normal 0.0-2.0 [facility] Comment on above: Performed By: #### 2 [id number] #### [facility] [address] [place] [address] Basophils/Leukocytes Auto (Bld) [Pure # fraction] 0.0 E9/L Normal 0.0-0.2 [facility] Comment on above: Performed By: #### 2 095447 #### [facility] [address] [place] [address] Eosinophils (Bld) [#/Vol] 0.2 E9/L Normal 0.0-0.5 [facility] Comment on above: Performed By: #### 2 [id number] #### [facility] [address] [place] [address] Eosinophils/100 WBC (Bld) 2.3 % Normal 0.0-8.0 [facility] Comment on above: Performed By: #### 2 644110 #### [facility] [address] [place] [address] Erythrocyte distribution width (RBC) [Ratio] 13.9 % Normal 10.9-14.2 [facility] Comment on above: Performed By: #### 2 104642 #### [facility] [address] [place] [address] Hematocrit (Bld) [Volume fraction] 37.3 % Normal 34.0-46.0 [facility] Comment on above: Performed By: #### 2 [id number] #### [facility] [address] [place] [address] Hemoglobin (Bld) [Mass/Vol] 12.7 g/dL Normal 12.0-16.0 [facility] Comment on above: Performed By: #### 2 [id number] #### [facility] [address] [place] [address] Lymphocytes (Bld) [#/Vol] 2.3 E9/L Normal 1.0-4.0 [facility] Comment on above: Performed By: #### 2 [id number] #### [facility] [address] [place] [address] Lymphocytes/100 WBC (Bld) 33.8 % Normal 14.0-50.0 [facility] Comment on above: Performed By: #### 2 [id number] #### [facility] [address] [place] [address] MCH (RBC) [Entitic mass] 28.5 pg Normal 27.0-34.0 [facility] Comment on above: Performed By: #### 2 580346 #### [facility] [address] [place] [address] MCHC (RBC) [Mass/Vol] 34.0 g/dL Normal 31.4-36.0 [facility] Comment on above: Performed By: #### 2 [id number] #### [facility] [address] [place] [address] MCV (RBC) [Entitic vol] 83.9 fL Normal 80.0-100.0 [facility] Comment on above: Performed By: #### 2 891101 #### [facility] [address] [place] [address] Monocytes (Bld) [#/Vol] 0.6 E9/L Normal 0.2-1.0 [facility] Comment on above: Performed By: #### 2 [id number] #### [facility] [address] [place] [address] Neutrophils (Bld) [#/Vol] 3.8 E9/L Normal 2.0-7.5 [facility] Comment on above: Performed By: #### 2 500484 #### [facility] [address] [place] [address] Neutrophils/100 WBC (Bld) 55.0 % Normal 36.0-75.0 [facility] Comment on above: Performed By: #### 2 [id number] #### [facility] [address] [place] [address] Platelet 454.0 E9/L Normal 150.0-500.0 [facility] Comment on above: Performed By: #### 2 [id number] #### [facility] [address] [place] [address] Platelet mean volume (Bld) [Entitic vol] 7.5 fL Normal 6.4-10.8 [facility] Comment on above: Performed By: #### 2 [id number] #### [facility] [address] [place] [address] RBC (Bld) [#/Vol] 4.4 E12/L Normal 4.3-5.9 [facility] Comment on above: Performed By: #### 2 [id number] #### [facility] [address] [place] [address] WBC corrected for nucl RBC Auto (Bld) [#/Vol] 6.9 E9/L Normal 4.0-11.0 [facility] Comment on above: Performed By: #### 2 [id number] #### [facility] [address] [place] [address] CHEMISTRYOrdered By: SYSTEM SYSTEM on 01-12-2024 Albumin [...] 01-12-2024 Albumin [Mass/Vol] 3.7 g/dL Normal 3.3-5.0 [facility] Comment on above: Performed By: #### 2 [id number] #### [facility] [address] [place] [address] Albumin/Globulin (S) [Mass conc ratio] 1.0 Low 1.1-2.2 [facility] Comment on above: Performed By: #### 2 [id number] #### [facility] [address] [place] [address] ALP [Catalytic activity/Vol] 49 Int._Unit/L Normal 21-98 [facility] Comment on above: Performed By: #### 2 [id number] #### [facility] [address] [place] [address] ALT No additional P-5'-P [Catalytic activity/Vol] 12 Int._Unit/L Normal 6-46 [facility] Comment on above: Performed By: #### 2 [id number] #### [facility] [address] [place] [address] Anion gap [Moles/Vol] 9 mmol/L Normal 6-16 [facility] Comment on above: Performed By: #### 2 713071 #### [facility] [address] [place] [address] AST [Catalytic activity/Vol] 12 Int._Unit/L Normal 5-43 [facility] Comment on above: Performed By: #### 2 [id number] #### [facility] [address] [place] [address] Bilirubin [Mass/Vol] 0.3 mg/dL Normal 0.0-1.1 [facility] Comment on above: Performed By: #### 2 [id number] #### [facility] [address] [place] [address] Calcium [Mass/Vol] 9.2 mg/dL Normal 8.9-11.1 [facility] Comment on above: Performed By: #### 2 [id number] #### [facility] [address] [place] [address] Chloride [Moles/Vol] 105 mmol/L Normal 101-111 [facility] Comment on above: Performed By: #### 2 111420 #### [facility] [address] [place] [address] CO2 [Moles/Vol] 27 mmol/L Normal 21-31 [facility] Comment on above: Performed By: #### 2 562529 #### [facility] [address] [place] [address] Creatinine [Mass/Vol] 0.7 mg/dL Normal 0.5-1.3 [facility] Comment on above: Performed By: #### 2 [id number] #### [facility] [address] [place] [address] Globulin (S) [Mass/Vol] 3.7 g/dL Normal 1.4-4.0 [facility] Comment on above: Performed By: #### 2 286973 #### [facility] [address] [place] [address] Glucose [Mass/Vol] 89 mg/dL Normal 55-199 [facility] Comment on above: Performed By: #### 2 214167 #### [facility] [address] [place] [address] Potassium [Moles/Vol] 3.7 mmol/L Normal 3.5-5.3 [facility] Comment on above: Performed By: #### 2 [id number] #### [facility] [address] [place] [address] Protein [Mass/Vol] 7.4 g/dL Normal 6.0-7.8 [facility] Comment on above: Performed By: #### 2 833844 #### [facility] [address] [place] [address] Sodium [Moles/Vol] 137 mmol/L Normal 135-145 [facility] Comment on above: Performed By: #### 2 [id number] #### [facility] [address] [place] [address] Urea nitrogen [Mass/Vol] 8 mg/dL Normal 5-21 [facility] Comment on above: Performed By: #### 2 196033 #### [facility] [address] [place] [address] Urea nitrogen/Creatinine [Mass ratio] 11 No Units Normal 10-20 [facility] Comment on above: Performed By: #### 2 [id number] #### [facility] [address] [place] [address] Consent for Treatmenton 01-01 Consent for Treatment [id number] Normal [facility] Discharge Instructionson Discharge Instructions [id number] Normal [facility] ED Clinical Summaryon 2023 ED Clinical Summary (Inserted Image. Nida ble to display) [address] [address] ED Clinical Summary Person Information Name: ROSE MARY SCHNEIDER [facility] Age[facility] 18 Years : 2005 Sex: Female Language: Guatemalan PCP: Claudia Ellington MD Marital Status: Single Phone: [phone] Visit Id: Visit Reason: Abdominal pain; ABDOMINAL [...] 01/12/2024 17:22:14 01/12/2024 17:22:14 01/12/2024 17:22:14 ADDRESS: [address] [facility] [id number] PHYS DOC NOTES: MEDICAL INFORMATION: Prescriptions Given: New Medications [facility]/pharmacy #[id number], [address] [place], [place] [id number], [phone] ondansetron (Zofran ODT 4 mg Tab-Dis) 1 [...] INFORMATION: Instructions: Full Liquid Diet; Nausea, Adult, Njqb-su-Tiqx; Abdominal Pain, Adult, Sfum-oo-Rdmo Follow up: With: Address: When: Claudia Ellington MD [facility] [place] [address] In 3 days 01/15/2024 DIAGNOSIS: 1:Generalized abdominal pain; 2:Nausea; 3:Elevated lipase Normal [facility] ED Note-Nursingon 01-12-2024 ED Note-Nursing MARIE Morales at [facility] to discuss poc. Normal [facility] ED Patient Education Noteon 01-12-2024 ED [...] Water. Coffee and tea (caffeinated or decaffeinated). [place]. Liquid nutritional supplements. Soft drinks. Nondairy milks, such as almond, coconut, rice, or soy milk. Sweets and desserts Custard. Pudding. Flavored gelatin. Smooth ice cream (without nuts or candy pieces). Sherbet. Frozen ice pops. Romansh ice. Pudding pops. Seasonings and condiments Salt and pepper. Spices. Vinegar. Ketchup. Yellow mustard. Smooth sauces, such as Hollandaise, cheese sauce, or white sauce. Soy sauce. Syrup. Honey. Jelly (without fruit pieces). Other foods [place] powder. Cream soups. Strained soups. The items [...] This infor (more content not included)... Normal [facility] ED Patient Education Note Gastroenterology Nausea, [...] ? Low-calorie sports drinks. ? Eat bland, qaje-bp-pvoela foods in small amounts as you are able, such as: ? Bananas. ? Applesauce. ? Rice. ? Low-fat (lean) meats. ? [place]. ? Crackers. ? Avoid drinking fluids that have a lot of sugar or caffeine in them. This includes energy drinks, sports drinks, and soda. ? Avoid alcohol. ? Avoid spicy or fatty foods. General instructions ? Take ayzo-zms-zexgsom and prescription medicines only as told by [...] cannot use soap and water, use hand receiving inspector. ? Make sure that everyone in your [...] drink what your doctor tells you. Take bbkk-lrq-kodnggh and prescription medicines only as told by [...] provider. Document Revised: 01/24/2022 Document Reviewed: 01/24/2022 [employer] Patient Education ? 2022 [employer]. Abdominal Pain, Adult Many things can cause belly (abdominal) pain. Most times, belly pain is not dangerous. Many cases of belly pain can be watched and treated at home. Sometimes, though, belly pain is serious. Your doctor will try to find the cause of your belly pain. Follow these instructions at home: Medicines ? Take qhsn-ljy-xoedrqn and prescription medicines only as told by [...] doctor if: (more content not included)... Normal [facility] ED Patient Summaryon 024 ED Patient Summary (Inserted Image. Nida ble to display) [place] [id number] Patient Discharge Instructions Person Information Name: ROSE MARY SCHNEIDER Age: 18 Years Arrival Date: 01/12/2024 14:42:50 Discharge Diagnosis: 1:Generalized abdominal pain; 2:Nausea; 3:Elevated lipase Primary Care Physician: Claudia Ellington MD Provider Information Primary Provider: Radha Whipple DO [employer] Partner:Liss Schroeder PA-C The exam and treatment you received in the Emergency Department were for an urgent problem and are not intended as complete care. It is important that you follow up with a doctor, nurse practitioner, or physician?s research assistant member for ongoing care. If your symptoms become [...] Instructions: With: Address: When: Claudia Ellington MD [address] [place], [place] [id number] In 3 days 01/15/2024 In the event that this physician does not participate in your insurance network, please consult with your insurance company to find a nearby participating provider. Patient Education Materials: Full Liquid Diet; Nausea, Adult, Volu-mq-Gvwk; Abdominal Pain, Adult, Ypsj-zq-Maoy A MESSAGE TO ALL PATIENTS REGARDING OPIOIDS PRESCRIPTION OPIOIDS: WHAT YOU NEED TO KNOW Prescription opioids can be used to help relieve byexahwe-aw-rgxdrd pain and are often prescribed following a [...] care professiona (more content not included)... Normal [facility] HEMATOLOGYOrdered By: SYSTEM SYSTEM on 01-12-2024 [...] Lipase [Catalytic activity/Vol] 158 U/L High 13-58 [facility] Comment on above: Performed By: #### 2 [id number] #### [facility] [address] [place] [address] Prescriptions/Work Noteson 0 01-12-2024 Prescriptions/Work Notes [id number] Normal [facility] SEROLOGYOrdered By: Alisha Smart on 01-12-2024 HCG.beta subunit (U) [Moles/Vol] Negative Normal [facility] Man Sero U BetaHcg Qualon 01-12-2024 HCG.beta subunit (U) [Moles/Vol] Negative Normal [facility] Comment on above: Performed By: #### 2 [id number] #### [facility] [address] [place] [address] UA with Cult Rflxon 01-12-20 24 Bilirubin Ql (U) Negative Normal Negative [facility] Comment on above: Performed By: #### 4 [id number] #### [facility] [address] [place] [address] Clarity (U) Clear Normal Clear [facility] Comment on above: Performed By: #### 4 [id number] #### [facility] [address] [place] [address] Color (U) Light-Yellow Normal Yellow [facility] Comment on above: Result Comment: Micr oscopic readings are only performed on those samples that meet specific criteria set forth by [facility]. Performed By: #### 4 [id number] #### [facility] [address] [place] [address] Epithelial cells.squamous Auto (Urine sed) [#/Area] 3-4 Invalid Interpretation Code [facility] Comment on above: Performed By: #### 4 [id number] #### [facility] [address] [place] [address] Glucose Ql (U) Negative Normal Negative [facility] Comment on above: Performed By: #### 4 [id number] #### [facility] [address] [place] [address] Hemoglobin Auto test strip (U) [Mass/Vol] 2+ mg/dL Abnormal Negative [facility] Comment on above: Performed By: #### 4 [id number] #### [facility] [address] [place] [address] Ketones Auto test strip Ql (U) Negative Normal Negative [facility] Comment on above: Performed By: #### 4 [id number] #### [facility] [address] [place] [address] Leukocyte esterase Auto test strip Ql (U) Negative Normal Negative [facility] Comment on above: Performed By: #### 4 [id number] #### [facility] [address] [place] [address] Mucus Auto Ql (U) Trace Normal Negative [facility] Comment on above: Performed By: #### 4 [id number] #### [facility] [address] [place] [address] Nitrite Auto test strip Ql (U) Negative Normal Negative [facility] Comment on above: Performed By: #### 4 [id number] #### [facility] [address] [place] [address] pH (U) 6.5 [pH] Invalid Interpretation Code 5.0-9.0 [facility] Comment on above: Performed By: #### 4 [id number] #### [facility] [address] [place] [address] Protein Ql (U) Negative Normal Negative [facility] Comment on above: Performed By: #### 4 [id number] #### [facility] [address] [place] [address] RBC Ql (U) 0-3 Normal 0-3 [facility] Comment on above: Performed By: #### 4 [id number] #### [facility] [address] [place] [address] Specific gravity (U) [Rel density] 1.021 Invalid Interpretation Code 1.005-1.030 [facility] Comment on above: Performed By: #### 4 [id number] #### [facility] [address] [place] [id number] Urobilinogen (U) [Mass/Vol] Negative Normal Negative [facility] Comment on above: Performed By: #### 4 [id number] #### [facility] [address] [place] [id number] WBC Auto (Urine sed) [#/Area] 0-5 Normal 0-5 [facility] Comment on above: Performed By: #### 4 [id number] #### [facility] [address] [place] [address] Type of Urine collection method Random Urine Normal [facility] Comment on above: Performed By: #### 4 [id number] #### [facility] [address] [place] [id number] URINALYSISOrdered By: SYSTEM SYSTEM on 01-12-2024 Bilirubin Ql (U) Negative Normal Negativemg/ dL [facility] UA Auto SS Clarity (U) Clear (01/12/24 4:20 PM) Normal Clear [facility] UA Auto SS Color (U) Light-Yellow 1 (01/12/24 4:20 PM) Normal Yellow [facility] UA Auto SS Comment on above: Interpretive Data: M icroscopic readings are only performed on those samples that meet specific criteria set forth by [facility]. Epithelial cells.squamous Auto (Urine sed) [#/Area] 3-4 graded/HPF Invalid Interpretation Code [facility] UA Auto SS Glucose Ql (U) Negative Normal Negativemg/ dL [facility] UA Auto SS Hemoglobin Auto test strip (U) [Mass/Vol] 2+ mg/dL Invalid Interpretation Code Negativemg/ dL [facility] UA Auto SS Ketones Auto test strip Ql (U) Negative Normal Negativemg/ dL [facility] UA Auto SS Leukocyte esterase Auto test strip Ql (U) Negative Normal NegativeLeu /uL [facility] UA Auto SS Mucus Auto Ql (U) Trace graded/LPF Normal Negati vegra ded/LPF [facility] UA Auto SS Nitrite Auto test strip Ql (U) Negative Normal Negativemg/ dL [facility] UA Auto SS pH (U) 6.5 *NA* (01/12/24 4:20 PM) Invalid Interpretation Code 5.0 - 9.0 [facility] UA Auto SS Protein Ql (U) Negative Normal Negativemg/ dL [facility] UA Auto SS RBC Ql (U) 0-3 graded/HPF Normal 0-3graded/H PF [facility] UA Auto SS Specific gravity (U) [Rel density] 1.021 *NA* (01/12/24 4:20 PM) Invalid Interpretation Code 1.005 - 1.030 [facility] UA Auto SS Urobilinogen (U) [Mass/Vol] Negative Normal Negativemg/ dL [facility] UA Auto SS WBC Auto (Urine sed) [#/Area] 0-5 graded/HPF Normal 0-5graded/H PF [facility] UA Auto SS URINALYSISOrdered By: Aicha Schroeder on 01-12-2024 UA Spec Desc Random Urine (01/12/24 4:20 PM) Normal [facility] UA Auto SS Work Phone: eGFRon 01-12-2024 eGFR 128 mL/min/1.73 m2 Normal >=59 [facility] Comment on above: Order Comment: Order added by Discern Expert. Performed By: #### 1 [id number] #### [facility] [address] [place] [address] EEGon 05-23-2023 EEG This is a long-term continuous video electroencephalogram monitor performed on an 17-year-old female using standard 10/20 lead placement and a [employer]My[employer] system. All data were obtained digitally and [...] stimulation. Melecio Rubio M.D. ca Dictated: 05/15/2023 [id number] Typed: 05/15/2023 [facility] Comment on above: Result Comment: Elec tronically Signed By: Ramiro MARCANO, Melecio\.br\Date and Time Signed: 05/23/23 08:20 EDT EEG This is a continuati on of the previous 24-hour recording. This is a continuous video electroencephalogram performed on an 17-year-old female using standard 10/20 lead placement and a [employer]-MyScreen system. All data were available for reformatting [...] required. Melecio Rubio M.D. ca Dictated: 05/15/2023 [id number] Typed: 05/15/2023 [facility] Comment on above: Result Comment: Elec [...] 42.81 While BMI may be coded from bobbin marker or nursing documentation, the weight-related diagnosis must [...] H please code as morbid obesity Normal [facility] Discharge Instructionson Discharge Instructions [id number] Normal [facility] Inpatient Clinical Summaryon 05-13-2023 Inpatient Clinical Summary [address] [address] Clinical Summary Person Information: Name: ROSE MARY SCHNEIDER Age: 17 Years : 2005 Sex: Female PCP: Claudia Ellington MD Marital Status: Single Phone: [phone] Race: White Ethnicity: Non- or Language: Guatemalan Visit Id: Visit Reason: R56.9 Unspecified convulsions Speciality: Acuity: Enc Type: Inpatient Med Service: Neurology Clinic Arrival: 05/11/2023 07:26:33 Discharge: Dispo Type: Address: [address] [place] [address] [address] BERTHA Todd [facility] [id number] Provider Notes: Diagnosis: 1:Seizures; 2:History of gastroesophageal [...] Physician: Melecio Rubio MD Referring Physician: PEYTON QUIROZ CNP Follow up: With: Address: When: Joann Zamorano [address] [address] Business (1) Comments: Call for hospital followup appointment 2-3 weeks With: Address: When: Claudia Ellington [facility] [facility] [address] [place] [phone] Business (1) Comments: Call for followup appointment Patient Education Information: Seizure, Adult Keppra Normal [facility] Inpatient Patient Summaryon 05-13-2023 Inpatient Patient Summary ROSE MARY SCHNEIDER :2005 Visit Date:05/11/2023 Inpatient Discharge Instructions Your Care Team Admitting Physician - ADELINE MARCANO, [place] Consulting Physician - Ramiro MARCANO, Melecio Referring Physician - PEYTON QUIROZ CNP Reason for Your Visit LTME Your [...] Pending Diagnostic Test Results None Pharmacy Information [facility] Discharge Instructions NO DRIVING until cleared by neurology New Follow Up Appointments after Discharge Follow Up with Joann Zamorano When: Comments: Call for hospital followup appointment 2-3 weeks Where: [facility] [place] [address] [place] [address]- Business (1) Follow Up with Claudia Ellington When: Comments: Call for followup appointment Where: [facility] [place] [address]- Business (1) Medications What How Much When Instructions Next Dose Changed levetiracetam (Keppra 500 mg Tab) 1 Tablets By Mouth 2 times a day Pickup at [facility]/pharmacy #[id number] 05/13 9pm Unchanged APAP/ butalbital/ caffeine (APAP/ [...] (Protonix 40 mg tablet) Resume Pharmacy Information [facility]/pharmacy #[id number]: [address] [place], [place] [id number] [phone] Test Results CBC BMP WBC: 5.6 E9/L [...] ? Metabolic (more content not included)... Normal [facility] Inpatient Patient Summary [place] [address] Patient Discharge Instructions PERSON INFORMATION Name: ROSE [...] results: None Follow up: With: Address: When: oJann MACK [place], [address] [place] [address] Business (1) Comments: Call for hospital followup appointment 2-3 weeks With: Address: When: Claudia Ellington [address] [facility], [place] [address] Business (1) Comments: Call for followup [...] Medications to Continue Taking That Have Changed [facility][id number], [address] [place], [place] [id number], [phone] START: levetiracetam (Keppra 500 mg Tab) 1 [...] (melatonin-pyridoxine 3 mg-10 (more content not included)... [facility] Interdisciplinary Note - Binu e Manageron 05-13-2023 Interdisciplinary Note - Tape Machine Tailer CRM entered the room to discuss dc planning. Pt is sleeping. Neuro following. ANt dc TBD. CRM to follow. [facility] Comment on above: Result Comment: Elec karlaally Signed By: Peyton Mccarty\Date and Time Signed: 05/13/23 09:22 EDT Monitor Recordon 05-13-2023 Monitor Record [id number]#[id number] [facility] Monitor Record [id number]#[id number] Normal [facility] Progress Note-Physicianon Progress Note-Physician Basic Information [...] sensation in all 4 extremities. Cerebellar exam: Gvhqjj-ft-dson reveals no ataxia. Gait is normal. [4] [3] Lab Results Glucose Cap: 84 mg/dL (05/12/23 21:54:00) POC Device SN: [id number] (05/12/23 21:54:00) POC User ID: [id number] (05/12/23 21:54:00) POC Username: NERY ALCALA (05/12/23 [...] PRN ceti (more content not included)... Normal [facility] Comment on above: Result Comment: Elec tronically Signed By: Riya Tidwell RN\.br\Date and Time Signed: 05/13/23 09:16 EDT\.br\Electronically Co-Signed By: eMlecio Rubio MD\.br\Date and Time Co-Signed: 05/13/23 16:14 [...] 05:50:00) Lymph Auto: 41.3 % (05/12/23 05:50:00) [place] Auto: 8.8 % (05/12/23 05:50:00) Eos Auto: 3.1 % (05/12/23 05:50:00) Basophil Auto: 0.4 % (05/12/23 05:50:00) Neutro Absolute: 2.6 E9/L (05/12/23 05:50:00) Lymph Absolute: 2.3 E9/L (05/12/23 05:50:00) [place] Absolute: 0.5 E9/L (05/12/23 05:50:00) Eos Absolute: [...] (05/12/23 05:50:0 (more content not included)... Normal [facility] Comment on above: Result Comment: Elec tronically Signed By: Alicia Sidhu\.br\Date and Time Signed: 05/12/23 15:34 EDT\.br\Electronically Co-Signed By: ADELINE MARCANO, [place]\.br\Date and Time Co-Signed: 05/13/23 07:06 EDT Auto Diffon 05-12-2023 Basophils/100 WBC (Bld) 0.4 % Normal 0.0-2.0 [facility] Comment on above: Order Comment: Order Added by Discern Expert. Performed By: #### 2 [id number], [id number] #### [facility] [address] [place] [address] Basophils/Leukocytes Auto (Bld) [Pure # fraction] 0.0 E9/L Normal 0.0-0.2 [facility] Comment on above: Order Comment: Order Added by Discern Expert. Performed By: #### 2 [id number], [id number] #### [facility] [address] [place] [address] Eosinophils/100 WBC (Bld) 3.1 % Normal 0.0-8.0 [facility] Comment on above: Order Comment: Order Added by Discern Expert. Performed By: #### 2 [id number], [id number] #### [facility] [address] [place] [address] Eosinophils/Leukocytes Auto (Bld) [Pure # fraction] 0.2 E9/L Normal 0.0-0.5 [facility] Comment on above: Order Comment: Order Added by Discern Expert. Performed By: #### 2 [id number], [id number] #### [facility] [address] [place] [address] Lymphocytes/100 WBC (Bld) 41.3 % Normal 14.0-50.0 [facility] Comment on above: Order Comment: Order Added by Discern Expert. Performed By: #### 2 [id number], [id number] #### [facility] Laboratory [address] [place] [address] 17718 Lymphocytes/Leukocytes Auto (Bld) [Pure # fraction] 2.3 E9/L Normal 1.0-4.0 [facility] Comment on above: Order Comment: Order Added by Discern Expert. Performed By: #### 2 [id number], [id number] #### [facility] Laboratory [address] [place] [address] 60012 Monocytes/100 WBC (Bld) 8.8 % Normal 4.0-14.0 [facility] Comment on above: Order Comment: Order Added by Discern Expert. Performed By: #### 2 [id number], [id number] #### [facility] Laboratory [address] [place] [address] 13339 Monocytes/Leukocytes Auto (Bld) [Pure # fraction] 0.5 E9/L Normal 0.2-1.0 [facility] Comment on above: Order Comment: Order Added by Discern Expert. Performed By: #### 2 085798, [id number] #### [facility] Laboratory [address] [place] [address] 10119 Neutrophils/100 WBC (Bld) 46.4 % Normal 36.0-75.0 [facility] Comment on above: Order Comment: Order Added by Discern Expert. Performed By: #### 2 [id number], [id number] #### [facility] Laboratory [address] [place] [address] 60535 Neutrophils/Leukocytes Auto (Bld) [Pure # fraction] 2.6 E9/L Normal 2.0-7.5 [facility] Comment on above: Order Comment: Order Added by Discern Expert. Performed By: #### 2 [id number], [id number] #### [facility] Laboratory [address] [place] [address] 43954 CBC w/ Auto Diffon 202 3 Erythrocyte distribution width (RBC) [Ratio] 13.8 % Normal 10.9-14.2 [facility] Comment on above: Performed By: #### 2 454772, [id number] #### [facility] Laboratory [address] [place] [address] Hematocrit (Bld) [Volume fraction] 38.5 % Normal 34.0-46.0 [facility] Comment on above: Performed By: #### 2 389100, [id number] #### [facility] Laboratory [address] [place] [address] Hemoglobin (Bld) [Mass/Vol] 13.2 g/dL Normal 12.0-16.0 [facility] Comment on above: Performed By: #### 2 088196, [id number] #### [facility] Laboratory [address] [place] [address] 51361 MCH (RBC) [Entitic mass] 29.2 pg Normal 27.0-34.0 [facility] Comment on above: Performed By: #### 2 270523, [id number] #### [facility] Laboratory [address] [place] [address] MCHC (RBC) [Mass/Vol] 34.3 g/dL Normal 31.4-36.0 [facility] Comment on above: Performed By: #### 2 161157, [id number] #### [facility] Laboratory [address] [place] [address] 89297 MCV (RBC) [Entitic vol] 85.2 fL Normal 80.0-100.0 [facility] Comment on above: Performed By: #### 2 915410, 3945873 #### [facility] Laboratory [address] [place] [address] Platelet mean volume (Bld) [Entitic vol] 8.2 fL Normal 6.4-10.8 [facility] Comment on above: Performed By: #### 2 978490, [id number] #### [facility] Laboratory [address] [place] [address] Platelets (Bld) [#/Vol] 332.0 E9/L Normal 150.0-500.0 [facility] Comment on above: Performed By: #### 2 125596, [id number] #### [facility] Laboratory [address] [place] [address] RBC (Bld) [#/Vol] 4.5 E12/L Normal 4.3-5.9 [facility] Comment on above: Performed By: #### 2 918755, [id number] #### [facility] Laboratory [address] [place] [address] WBC corrected for nucl RBC Auto (Bld) [#/Vol] 5.6 E9/L Normal 4.0-11.0 [facility] Comment on above: Performed By: #### 2 898574, [id number] #### [facility] Laboratory [address] [place] [address] CHEMISTRYOrdered By: Lab ROP User on 05-12-2023 Glucose [Mass/Vol] 84 mg/dL Normal 55 - 99 mg/dL [facility] POC Subsection Comment on above: Result Comment: Drea kaur RN/ POC Device SN [id number] Invalid Interpretation Code [facility] POC Subsection POC Username NERY ALCALA Invalid Interpretation Code [facility] POC Subsection Sodium [Moles/Vol] [id number] mmol/L Invalid Interpretation Code [facility] POC Subsection CHEMISTRYOrdered By: SYSTEM SYSTEM on [...] 95 mL/min/1.73 m2 Normal >=59mL/min/ 1.73 m2 [facility] Chem S Comment on above: Interpretive Data: [...] 136 mmol/L Normal 135 - 145 mmol/L [facility] Remisol Urea nitrogen [Mass/Vol] 12 mg/dL Normal 5 - 21 mg/dL [facility] Remisol Urea nitrogen/Creatinine [Mass ratio] 13 mg/mg Normal 10 - 20 [facility] Remisol CMPon 05-12-2023 Albumin [Mass/Vol] 3.0 g/dL Low 3.3-5.0 [facility] Comment on above: Performed By: #### 2 [id number] #### [facility] Laboratory [address] [place] [address] Albumin/Globulin (S) [Mass conc ratio] 0.7 Low 1.1-2.2 [facility] Comment on above: Performed By: #### 2 956397 #### [facility] Laboratory [address] [place] [address] ALP [Catalytic activity/Vol] 50 Int._Unit/L Normal 21-98 [facility] Comment on above: Performed By: #### 2 722823 #### [facility] Laboratory [address] [place] [address] ALT No additional P-5'-P [Catalytic activity/Vol] 13 Int._Unit/L Normal 6-46 [facility] Comment on above: Performed By: #### 2 454889 #### [facility] Laboratory [address] [place] [address] Anion gap [Moles/Vol] 8 mmol/L Normal 6-16 [facility] Comment on above: Performed By: #### 2 065650 #### [facility] Laboratory [address] [place] [address] AST [Catalytic activity/Vol] 16 Int._Unit/L Normal 5-43 [facility] Comment on above: Performed By: #### 2 729614 #### [facility] Laboratory [address] [place] [address] Bilirubin [Mass/Vol] 0.4 mg/dL Normal 0.0-1.1 [facility] Comment on above: Performed By: #### 2 137798 #### [facility] Laboratory [address] [place] [address] Calcium [Mass/Vol] 9.0 mg/dL Normal 8.9-11.1 [facility] Comment on above: Performed By: #### 2 536881 #### [facility] Laboratory [address] [place] [address] Chloride [Moles/Vol] 108 mmol/L Normal 101-111 [facility] Comment on above: Performed By: #### 2 344898 #### [facility] Laboratory [address] [place] [address] CO2 [Moles/Vol] 24 mmol/L Normal 21-31 [facility] Comment on above: Performed By: #### 2 368495 #### [facility] Laboratory [address] [place] [address] Creatinine [Mass/Vol] 0.9 mg/dL Normal 0.5-1.3 [facility] Comment on above: Performed By: #### 2 831403 #### [facility] Laboratory [address] [place] [address] Globulin (S) [Mass/Vol] 4.4 g/dL High 1.4-4.0 [facility] Comment on above: Performed By: #### 2 876611 #### [facility] Laboratory [address] [place] [address] Glucose [Mass/Vol] 93 mg/dL Normal 55-199 [facility] Comment on above: Result Comment: If t his glucose result represents a fasting glucose, interpretation should refer to the following reference range: 55-99 mg/dL Performed By: #### 2 937642 #### [facility] Laboratory [address] [place] [address] Potassium [Moles/Vol] 3.7 mmol/L Normal 3.5-5.3 [facility] Comment on above: Performed By: #### 2 935694 #### [facility] Laboratory [address] [place] [address] Protein [Mass/Vol] 7.4 g/dL Normal 6.0-7.8 [facility] Comment on above: Performed By: #### 2 190468 #### [facility] Laboratory [address] [place] [address] Sodium [Moles/Vol] 136 mmol/L Normal 135-145 [facility] Comment on above: Performed By: #### 2 885160 #### [facility] Laboratory [address] [place] [address] Urea nitrogen [Mass/Vol] 12 mg/dL Normal 5-21 [facility] Comment on above: Performed By: #### 2 369120 #### [facility] Laboratory [address] [place] [address] Urea nitrogen/Creatinine [Mass ratio] 13 No Units Normal 05-22 [facility] Comment on above: Performed By: #### 2 154523 #### [facility] Laboratory [address] [place] [address] Capillary Glucose POCon 05-03 Glucose [Mass/Vol] 84 mg/dL Normal 55-99 [facility] Comment on above: Result Comment: Drea kaur RN/MD Performed By: #### 2 560311, [id number] #### [facility] Laboratory [address] [place] [address] HEMATOLOGYOrdered By: Change Lane SYSTEM on 05-12-2023 Basophils/100 WBC (Bld) 0.4 [...] Binu e Manageron 05-12-2023 Interdisciplinary Note - Tape Machine Tailer Pt actively having LTME. CRM will continue to follow. Normal [facility] Comment on above: Result Comment: Elec tronically Signed By: Peyton Mccarty\Date and Time Signed: 05/12/23 10:00 EDT Magnesiumon 05-12-2023 Magnesium [Mass/Vol] 2.0 mg/dL Normal 1.3-2.4 [facility] Comment on above: Performed By: #### 2 622964 #### [facility] Laboratory [address] [place] [address] Monitor Recordon 05-12-2023 Monitor Record [id number]#1.00TIFF Normal [facility] Monitor Record [id number]#1.00TIFF Normal [facility] Progress Note-Nurseon 2022 Progress Note-Nurse patient [...] wants to rest as of now. Normal [facility] Progress Note-Physicianon Progress Note-Physician Basic Information [...] sensation in all 4 extremities. Cerebellar exam: Kifgra-yw-druq reveals no ataxia. Gait is normal. [4] [...] 05:50:00) Lymph Auto: 41.3 % (05/12/23 05:50:00) [place] Auto: 8.8 % (05/12/23 05:50:00) Eos Auto: 3.1 % (05/12/23 05:50:00) Basophil Auto: 0.4 % (05/12/23 05:50:00) Neutro Absolute: 2.6 E9/L (05/12/23 05:50:00) Lymph Absolute: 2.3 E9/L (05/12/23 05:50:00) [place] Absolute: 0.5 E9/L (05/12/23 05:50:00) Eos Absolute: [...] (05/12/23 0 (more content not included)... Normal [facility] Comment on above: Result Comment: Elec tronically Signed By: Constanza Landin LPN\.br\Date and Time Signed: 05/12/23 09:21 EDT\.br\Electronically Co-Signed By: Melecio Rubio MD\.br\Date and Time Co-Signed: 05/12/23 13:57 EDT eGFRon 05-12-2023 GFR/1.73 sq M.predicted among non-blacks MDRD (S/P/Bld) [Vol rate/Area] 95 mL/min/1.73 m2 Normal >=59 [facility] Comment on above: Order Comment: Order added by Discern Expert. Result Comment: Inside Barrel Polisher marleny kidney disease could be indicated at eGFR's of less than 60 mL/min/1.73m2. Kidney failure is indicated at less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#[id number]:1 27 Normal [facility] Monitor Record [id number]#[id number]:1 27 Normal [facility] PTon 03-09-2023 INR Coag (PPP) [Relative time] 1.0 {INR} Invalid Interpretation Code [facility] Comment on above: Result Comment: INR results are specifically intended to assess patients stabilized on long-term Anticoagulation therapy suggested INR?s ?Less Intensive Anticoagulation? 2.0 ? 3.0 Conventional Range 3.0 ? 4.5 Performed By: #### 2 114146, [id number] #### [facility] [address] [place] [address] PT Coag (PPP) [Time] 10.6 second(s) Normal 9.4-12.5 [facility] Comment on above: Result Comment: 15 [...] the same coagulation reagent and instrumentation as [facility]. Currently there are no coagulation studies available worldwide for children to 14 days, and no normal ranges. Performed By: #### 2 183978, 3943125 #### [facility] [address] [place] [address] Progress Note-Nurseon 2022 Progress Note-Nurse Dr. Eamon marie via Red e App. Patient has PT and CMP 8/7 at 0600. Physician notified of current lab orders and no further orders received at this time. Normal [facility] Progress Note-Nurse Patient is afebrile, VS as documented, and patient in no distress. She denies pain, gi upset, and distress. Safety maintained and supervision continued. Normal [facility] Progress Note-Physicianon Progress Note-Physician Subjective Doing [...] (E66.9: Obesi (more content not included)... Normal [facility] Comment on above: Result Comment: Elec tronically Signed By: Lawrence Reveles DO\.br\Date and Time Signed: 03/09/23 14:30 EDT eGFRon 03-09-2023 GFR/1.73 sq M.predicted among non-blacks MDRD (S/P/Bld) [Vol rate/Area] 128 mL/min/1.73 m2 Normal >=59 [facility] Comment on above: Order Comment: Order added by Discern Expert. Result Comment: Inside Barrel Polisher marleny kidney disease could be indicated at eGFR's of less than 60 mL/min/1.73m2. Kidney failure is indicated at less than 15 mL/min/1.73m2. Performed By: #### 2 928824, 4002344 #### [facility] [address] [place] [address] Acetamnphn Lvlon 03-08-2023 Acetaminophen [Mass/Vol] ug/mL Low 15-30 [facility] Comment on above: Performed By: #### 2 956309, 0128050 #### [facility] [address] [place] [address] Acetaminophen [Mass/Vol] 10 microgram/mL Low -30 [facility] Comment on above: Performed By: #### 2 143899, 1637238 #### [facility] [address] [place] [address] BMPon 03-08-2023 Anion gap [Moles/Vol] 13 mmol/L Normal 6-16 [facility] Comment on above: Performed By: #### 2 580494, 6987097, 9869977, 47499394, 72197099 ####[facility] [address] [place] [address] Calcium [Mass/Vol] 9.1 mg/dL Normal 8.9-11.1 [facility] Comment on above: Performed By: #### 2 969690, 3039561, 8296089, 63292235, 91539333 ####[facility] [address] [place] [address] Chloride [Moles/Vol] 105 mmol/L Normal 101-111 [facility] Comment on above: Performed By: #### 2 058126, 0831598, 3867532, 91407336, 90652867 ####[facility] [address] [place] [address] CO2 [Moles/Vol] 23 mmol/L Normal 21-31 [facility] Comment on above: Performed By: #### 2 080097, 2892191, 4601211, 13836488, 19202274 ####[facility] [address] [facility] [place] [address] Creatinine [Mass/Vol] 0.8 mg/dL Normal 0.5-1.3 [facility] Comment on above: Performed By: #### 2 257286, 2326722, 4729719, 67864126, 71870887 ####[facility] [address] [facility] [place] [address] Glucose [Mass/Vol] 103 mg/dL Normal 55-199 [facility] Comment on above: Result Comment: If t his glucose result represents a fasting glucose, interpretation should refer to the following reference range: 55-99 mg/dL Performed By: #### 2 755824, 3579131, 9542014, 34605642, 26304622 ####[facility] [address] [place] [address] Potassium [Moles/Vol] 3.3 mmol/L Low 3.5-5.3 [facility] Comment on above: Performed By: #### 2 575817, 0130929, 2789118, 69081049, 16672988 ####[facility] [address] [place] [address] Sodium [Moles/Vol] 138 mmol/L Normal 135-145 [facility] Comment on above: Performed By: #### 2 534964, 0805250, 7216200, 38070653, 19388227 ####[facility] [address] [place] [address] Urea nitrogen [Mass/Vol] 7 mg/dL Normal 5-21 [facility] Comment on above: Performed By: #### 2 169953, 1257812, 0904965, 65058804, 93958898 ####[facility] [address] [place] [address] Urea nitrogen/Creatinine [Mass ratio] 9 No Units Low 10-20 [facility] Comment on above: Performed By: #### 2 675583, 3379022, 2601626, 56681165, 25020478 ####[facility] [address] [place] [address] CHEMISTRYOrdered By: SYSTEM SYSTEM on 03-08-2023 Albumin [...] 32.2 s Normal 25.1 - 36.5 second(s) [facility] Auto Coag INR Coag (PPP) [Relative time] 1.1 {INR} Invalid Interpretation Code [facility] Auto Coag PT Coag (PPP) [Time] 12.1 s Normal 9.4 - 1 2.5 second(s) [facility] Auto Coag GetWell Education Videoon GetWell Education Video Avoiding Infections in the Hospital Yes Patient Normal [facility] Hep Func Panelon 03-08-2023 Bilirubin.indirect [Mass or moles/Vol] UTC Abnormal 0.1-0.9 [facility] Comment on above: Result Comment: Resu lt verified by Discern Rule. Performed result UTC (Unable to Calculate) was sent as an Alpha code due the inability to calculate a valid numeric value. Performed By: #### 2 817871 #### [facility] [address] [place] [address] Albumin [Mass/Vol] 3.0 g/dL Low 3.3-5.0 [facility] Comment on above: Performed By: #### 2 624765 #### [facility] [address] [place] [address] Albumin/Globulin (S) [Mass conc ratio] 0.7 Low 1.1-2.2 [facility] Comment on above: Performed By: #### 2 639535 #### [facility] [address] [place] [address] ALP [Catalytic activity/Vol] 46 Int._Unit/L Normal 21-98 [facility] Comment on above: Performed By: #### 2 204984 #### [facility] [address] [place] [address] ALT No additional P-5'-P [Catalytic activity/Vol] 14 Int._Unit/L Normal 6-46 [facility] Comment on above: Performed By: #### 2 399297 #### [facility] [address] [place] [address] AST [Catalytic activity/Vol] 17 Int._Unit/L Normal 5-43 [facility] Comment on above: Performed By: #### 2 467772 #### [facility] [address] [place] [address] Bilirubin [Mass/Vol] 0.3 mg/dL Normal 0.0-1.1 [facility] Comment on above: Performed By: #### 2 573627 #### [facility] [address] [place] [address] Globulin (S) [Mass/Vol] 4.2 g/dL High 1.4-4.0 [facility] Comment on above: Performed By: #### 2 265633 #### [facility] [address] [place] [address] Protein [Mass/Vol] 7.2 g/dL Normal 6.0-7.8 [facility] Comment on above: Performed By: #### 2 114473 #### [facility] [address] [place] [address] Bilirubin.direct [Mass/Vol] mg/dL Normal 0.1-0.4 [facility] Comment on above: Performed By: #### 2 397500 #### [facility] [address] [place] [address] Bilirubin.indirect [Mass or moles/Vol] UTC Abnormal 0.1-0.9 [facility] Comment on above: Result Comment: Resu lt verified by Discern Rule. Performed result UTC (Unable to Calculate) was sent as an Alpha code due the inability to calculate a valid numeric value. Performed By: #### 2 088573, 4710276, 0836863, 32545625, 61473411 ####[facility] [address] [place] [address] Albumin [Mass/Vol] 3.0 g/dL Low 3.3-5.0 [facility] Comment on above: Performed By: #### 2 925550, 0826579, 4304035, 05475647, 30593342 ####[facility] [address] [place] [address] Albumin/Globulin (S) [Mass conc ratio] 0.7 Low 1.1-2.2 [facility] Comment on above: Performed By: #### 2 692133, 5588617, 4181975, 70279378, 68498678 ####[facility] [address] [place] [address] ALP [Catalytic activity/Vol] 42 Int._Unit/L Normal 21-98 [facility] Comment on above: Performed By: #### 2 385461, 6987511, 1577954, 96318264, 61450637 ####[facility] [address] [place] [address] ALT No additional P-5'-P [Catalytic activity/Vol] 12 Int._Unit/L Normal 6-46 [facility] Comment on above: Performed By: #### 2 512227, 4495442, 3970373, 64692958, 15169001 ####[facility] [facility] [address] [place] [address] AST [Catalytic activity/Vol] 13 Int._Unit/L Normal 5-43 [facility] Comment on above: Performed By: #### 2 684667, 2160652, 8439418, 42387695, 80819412 ####[facility] [address] [place] [address] Bilirubin [Mass/Vol] 0.4 mg/dL Normal 0.0-1.1 [facility] Comment on above: Performed By: #### 2 513459, 0337169, 4076420, 97069964, 93282618 ####[facility] [address] [place] [address] Globulin (S) [Mass/Vol] 4.2 g/dL High 1.4-4.0 [facility] Comment on above: Performed By: #### 2 878095, 5558732, 5840193, 95144714, 12428092 ####[facility] [address] [place] [address] Protein [Mass/Vol] 7.2 g/dL Normal 6.0-7.8 [facility] Comment on above: Performed By: #### 2 793877, 5589585, 9407683, 85655840, 37951905 ####[facility] [address] [place] [address] Bilirubin.direct [Mass/Vol] mg/dL Normal 0.1-0.4 [facility] Comment on above: Performed By: #### 2 434721, 1553930, 2985822, 74018858, 36052663 ####[facility] [address] [place] [address] Bilirubin.indirect [Mass or moles/Vol] UTC Abnormal 0.1-0.9 [facility] Comment on above: Result Comment: Resu lt verified by Discern Rule. Performed result UTC (Unable to Calculate) was sent as an Alpha code due the inability to calculate a valid numeric value. Performed By: #### 2 227449, 8453011 #### [facility] [address] [place] [address] Albumin [Mass/Vol] 2.9 g/dL Low 3.3-5.0 [facility] Comment on above: Performed By: #### 2 778490, 2662707 #### [facility] [address] [place] [address] Albumin/Globulin (S) [Mass conc ratio] 0.7 Low 1.1-2.2 [facility] Comment on above: Performed By: #### 2 538784, 5933499 #### [facility] [address] [place] [address] ALP [Catalytic activity/Vol] 40 Int._Unit/L Normal 21-98 [facility] Comment on above: Performed By: #### 2 559718, 7594529 #### [facility] [address] [place] [address] ALT No additional P-5'-P [Catalytic activity/Vol] 11 Int._Unit/L Normal 6-46 [facility] Comment on above: Performed By: #### 2 208001, 6942777 #### [facility] [address] [place] [address] AST [Catalytic activity/Vol] 16 Int._Unit/L Normal 5-43 [facility] Comment on above: Performed By: #### 2 865289, 6226460 #### [facility] [address] [place] [address] Bilirubin [Mass/Vol] 0.3 mg/dL Normal 0.0-1.1 [facility] Comment on above: Performed By: #### 2 076387, 8051137 #### [facility] [address] [place] [address] Globulin (S) [Mass/Vol] 4.0 g/dL Normal 1.4-4.0 [facility] Comment on above: Performed By: #### 2 984795, 6608167 #### [facility] [address] [place] [address] Protein [Mass/Vol] 6.9 g/dL Normal 6.0-7.8 [facility] Comment on above: Performed By: #### 2 396275, 9896514 #### [facility] [address] [place] [address] Bilirubin.direct [Mass/Vol] mg/dL Normal 0.1-0.4 [facility] Comment on above: Performed By: #### 2 033830, 2595866 #### [facility] [address] [place] [address] Interdisciplinary Note - Binu e Manageron 03-08-2023 Interdisciplinary Note - Tape Machine Tailer CRM spoke with patient and mother in [...] has a sitter in the room. Normal [facility] Comment on above: Result Comment: Elec tronically Signed By: Don SHER, Antoinette\.br\Date and Time Signed: 03/08/23 12:53 EDT Monitor Recordon 03-08-2023 Monitor Record [id number]:1 27 Normal [facility] Monitor Record [id number]#[id number]:1 27 Normal [facility] Monitor Record [id number]:1 27 Normal [facility] PT & PTTon 03-08-2023 aPTT Coag (PPP) [Time] 32.2 second(s) Normal 25.1-36.5 [facility] Comment on above: Result Comment: Para [...] the same coagulation reagent and instrumentation as [facility]. Currently there are no coagulation studies available worldwide for children to 14 days, and no normal ranges. Heparin therapeutic range (represented by Anti-Factor Xa activity of 0.2 - 0.4 U/mL) corresponds to PTT of 56.6 - 109.0 sec. Performed By: #### 2 338258, 0225060, 1823815, 90267375, 26180571 ####[facility] [address] [place] [address] INR Coag (PPP) [Relative time] 1.1 {INR} Invalid Interpretation Code [facility] Comment on above: Result Comment: INR results are specifically intended to assess patients stabilized on long-term Anticoagulation therapy suggested INR?s ?Less Intensive Anticoagulation? 2.0 ? 3.0 Conventional Range 3.0 ? 4.5 Performed By: #### 2 675499, 2639580, 5437947, 15602570, 20635522 ####[facility] [address] [place] [address] PT Coag (PPP) [Time] 12.1 second(s) Normal 9.4-12.5 [facility] Comment on above: Result Comment: 15 [...] the same coagulation reagent and instrumentation as [facility]. Currently there are no coagulation studies available worldwide for children to 14 days, and no normal ranges. Performed By: #### 2 848109, 0157930, 6062852, 64246603, 90126188 ####[facility] [address] [place] [address] Progress Note-Nurseon 2022 Progress Note-Nurse Patient assisted to BSC and voids a small amount of clear yellow urine. Patient also ate a 6 inch sub and tolerated it well. She denies GI upset and tolerated it well. Observation continued and safety maintained. Normal [facility] Progress Note-Nurse Report taken and bed [...] Seizure pads intact and safety maintained. Normal [facility] Progress Note-Nurse 1340: This RN contac [...] will remain on regular nursing floor. Normal [facility] Progress Note-Physicianon Progress Note-Physician Assessment/Plan 17-year-old [...] overdose with Tylenol/diphenhydramine.? Secondary to suicide ideation/attempt. community mental health worker evaluation. Acetaminophen level ekta to 40 but trended down to undetectable. Treating with IVF Thursday. LFTs within normal limit. Repeat LFTs and PT/INR in AM. Ordered: Basic Metabolic Panel Comprehensive Metabolic Panel Consult to Capsule Inspector eGFR Extra Lav Tube Hepatic Function Panel PT [facility] Hospital Care/Day Moderate 35 Minutes 71084 2. Suicidal ideation (R45.851: Suicidal ideations) Supportive care. community mental health worker evaluation. Mental health evaluation in a.m. once medically stable. Ordered: Consult to Capsule Inspector [facility] Hospital Care/Day Moderate 35 Minutes 83702 3. Antihistamines overdose (T45.0X1A: Poisoning by antiallergic and antiemetic drugs, accidental (unintentional), initial encounter) Treated with charcoal. Respiratory status and circulation currently stable. Treated with IV fluid. Bladder scan?so far not retaining urine. Ordered: [facility] Hospital Care/Day Moderate 35 Minutes 29484 4. Hypokalemia (E87.6: Hypokalemia) Secondary to gastrointestinal loss and IV fluid. We will replace orally. Ordered: potassium chloride, 40 mEq = 2 tab(s), Tab-ER, Oral, BID for 2 dose(s), Stop date 03/09/23 8:59:00 EDT, Routine, Start date 03/08/23 9:00:00 EDT, 03/08/23 8:36:00 EDT Comprehensive Metabolic Panel [facility] Hospital Care/Day Moderate 35 Minutes 16374 5. Depression (F32.A: Depression, unspecified) On fluoxetine. Ordered: [facility] Hospital Care/Day Moderate 35 Minutes 90866 6. Seizure (R56.9: Unspecified convulsions) No reported seizure. On Lamictal and Keppra. Ordered: lorazepam, 1 mg = 0.5 mL, Injection, IV Push, QID PRN Seizure, Routine, Start date 03/07/23 18:04:00 EDT 7. Obesity (E66.9: Obesity, unspecified) Recommend therapeutic lifestyle modification changes. 8. 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 Disposition: Pending mental health evaluation in AM. I discussed the diagnosis and plan of care with the patient at the bedside. Moderate level of MDM based on addressing above issues. This documentation was transcribed using voice recognition software. Several attempts were made to ensure accuracy. However inadvertent computerized arabic teacher errors may be present. Jennifer Retana. Hospitalist. [...] -- charco (more content not included)... Normal [facility] Comment on above: Result Comment: Elec tronically Signed By: DEBBIE MARCANO, Zainafo\.br\Date and Time Signed: 03/08/23 08:38 EDT Reference Laboratory Testing Ordered By: Generated DomainUser on 03-08-2023 lamoTRIgine [Mass/Vol] microgram/mL Low 2.0-2 0.0mcg /mL [facility] SendOutsSS Comment on above: Result Comment: Dete ction Limit = 1.0 Performed at: [address] [id number] MD Jose Armando Feliz levETIRAcetam [Mass/Vol] 12.4 microgram/mL Invalid Interpretation Code 10.0-40.0mc g/mL [facility] [employer]Out[employer] Comment on above: Result Comment: Perf ormed at: [address] [id number] MD Jose Armando Feliz eGFRon 03-08-2023 GFR/1.73 sq M.predicted among non-blacks MDRD (S/P/Bld) [Vol rate/Area] 109 mL/min/1.73 m2 Normal >=59 [facility] Comment on above: Order Comment: Order added by Discern Expert. Result Comment: Inside Barrel Polisher marleny kidney disease could be indicated at eGFR's of less than 60 mL/min/1.73m2. Kidney failure is indicated at less than 15 mL/min/1.73m2. Performed By: #### 2 850752, 7674361, 8142307, 49847875, 51925316 ####[facility] [address] [place] [address] Acetamnphn Lvlon 03-07-2023 Acetaminophen [Mass/Vol] 40 microgram/mL Abnormal 15-30 [facility] Comment on above: Result Comment: Crit ical Result verified by repeat analysis\Critical Result S_ACTM:40.1 Called to ALLEN ZENG AT ER by SANIYA NEWBY And Read Back For Confirmation at: 03/07/2023 18:17:47 Performed By: #### 2 682722, 7121449 #### [facility] [address] [place] [address] Acetaminophen [Mass/Vol] 35 microgram/mL High 15-30 [facility] Comment on above: Performed By: #### 1 8813078, 3791327, 5035488, 4114401, 12977572, 3112483, 8084207, 8307565, 3481112 #### [facility] [address] [place] [address] Auto Diffon 03-07-2023 Basophils/100 WBC (Bld) 0.5 % Normal 0.0-2.0 [facility] Comment on above: Order Comment: Order Added by Discern Expert. Performed By: #### 1 4259858, 8568079, 9014138, 4955209, 01358526, 9279941, 1972843, 8722618, 2174266 ####[address] [place] [address] Basophils/Leukocytes Auto (Bld) [Pure # fraction] 0.0 E9/L Normal 0.0-0.2 [facility] Comment on above: Order Comment: Order Added by Discern Expert. Performed By: #### 1 1648905, 6469245, 3369049, 4971140, 59922399, 3160290, 4929078, 7943671, 6179155 ####[address] [place] [address] Eosinophils/100 WBC (Bld) 1.9 % Normal 0.0-8.0 [facility] Comment on above: Order Comment: Order Added by Discern Expert. Performed By: #### 1 0176615, 8889370, 7922235, 2857680, 71910792, 9646835, 4349260, 5523040, 4299767 ####[address] [place] [address] Eosinophils/Leukocytes Auto (Bld) [Pure # fraction] 0.1 E9/L Normal 0.0-0.5 [facility] Comment on above: Order Comment: Order Added by Discern Expert. Performed By: #### 1 9275794, 0737111, 6831950, 9055060, 92366564, 6559952, 3064158, 5136751, 3918708 ####[address] [address] Lymphocytes/100 WBC (Bld) 28.7 % Normal 14.0-50.0 [facility] Comment on above: Order Comment: Order Added by Discern Expert. Performed By: #### 1 6893062, 7074210, 8532687, 5542606, 08879121, 7345129, 7688814, 4485208, 4772450 ####[facility] [address] [place] [address] Lymphocytes/Leukocytes Auto (Bld) [Pure # fraction] 2.0 E9/L Normal 1.0-4.0 [facility] Comment on above: Order Comment: Order Added by Discern Expert. Performed By: #### 1 6205910, 1284551, 8594193, 8371300, 13027066, 3976490, 3282053, 5787441, 7339827 ####[facility] [address] [place] [address] Monocytes/100 WBC (Bld) 8.6 % Normal 4.0-14.0 [facility] Comment on above: Order Comment: Order Added by Discern Expert. Performed By: #### 1 0976601, 2306764, 3324222, 7069922, 08736399, 0452523, 9772131, 7974961, 5881305 ####[address] [address] Monocytes/Leukocytes Auto (Bld) [Pure # fraction] 0.6 E9/L Normal 0.2-1.0 [facility] Comment on above: Order Comment: Order Added by Discern Expert. Performed By: #### 1 3654409, 7549357, 3408354, 5774479, 01833999, 1707132, 9752351, 9349056, 0007727 ####[facility] [address] [place] [address] Neutrophils/100 WBC (Bld) 60.3 % Normal 36.0-75.0 [facility] Comment on above: Order Comment: Order Added by Samantha Expert. Performed By: #### 1 1770909, 7953596, 6334797, 2117691, 56550011, 3374940, 4506853, 1827302, 2368800 ####[facility] [address] [place] [address] Neutrophils/Leukocytes Auto (Bld) [Pure # fraction] 4.1 E9/L Normal 2.0-7.5 [facility] Comment on above: Order Comment: Order Added by Discern Expert. Performed By: #### 1 9159452, 2715178, 4172630, 0223634, 34062783, 6694836, 1742734, 4549846, 1216949 ####[facility] [address] [place] [address] B hCG Qualon 03-07-2023 Beta hCG Ql Negative Normal [facility] Comment on above: Performed By: #### 1 2975922, 4968390, 2620612, 3547974, 45435417, 5451096, 6451130, 1751600, 2552822 ####[facility] [address] [place] [address] BMPon 03-07-2023 Creatinine [Mass/Vol] 0.9 mg/dL Normal 0.5-1.3 [facility] Comment on above: Performed By: #### 1 2778894, 1216316, 2629312, 7123336, 37635893, 8583769, 7561313, 6974053, 8554557 ####[facility] [address] [place] [address] Urea nitrogen [Mass/Vol] 9 mg/dL Normal 5-21 [facility] Comment on above: Performed By: #### 1 9789807, 6801548, 8472793, 4928488, 87825070, 3380728, 2021357, 9871050, 0190228 ####[facility] [address] [place] [address] Urea nitrogen/Creatinine [Mass ratio] 10 No Units Normal 10-20 [facility] Comment on above: Performed By: #### 1 5659337, 4821043, 2437460, 7044265, 65740739, 7300434, 7468471, 5305475, 1287535 ####[facility] [address] [place] [address] Anion gap [Moles/Vol] 14 mmol/L Normal 6-16 [facility] Comment on above: Performed By: #### 1 2927229, 6915784, 3097854, 9311632, 40507363, 9330120, 0848047, 7739899, 4799611 ####[facility] [address] [place] [address] Calcium [Mass/Vol] 9.4 mg/dL Normal 8.9-11.1 [facility] Comment on above: Performed By: #### 1 1868033, 2166892, 4974212, 4986923, 17970057, 6908006, 3042990, 4572298, 9048838 ####[facility] [address] [place] [address] Chloride [Moles/Vol] 103 mmol/L Normal 101-111 [facility] Comment on above: Performed By: #### 1 3586117, 5389951, 8124541, 7090247, 11638552, 3012825, 5200788, 8294582, 9583007 ####[facility] [address] [place] [address] CO2 [Moles/Vol] 24 mmol/L Normal 21-31 [facility] Comment on above: Performed By: #### 1 6412697, 5120381, 5066295, 4536985, 83272047, 0541882, 1071031, 8391245, 8088337 ####[facility] [address] [place] [address] Glucose [Mass/Vol] 95 mg/dL Normal 55-199 [facility] Comment on above: Result Comment: If t his glucose result represents a fasting glucose, interpretation should refer to the following reference range: 55-99 mg/dL Performed By: #### 1 9599131, 2004355, 2578160, 1886714, 90881139, 4895093, 5055100, 3756499, 2953885 ####[facility] [address] [place] [address] Potassium [Moles/Vol] 3.6 mmol/L Normal 3.5-5.3 [facility] Comment on above: Performed By: #### 1 6746263, 3201548, 7536982, 3061181, 37843780, 6812139, 5954878, 7494550, 8312928 ####[facility] [address] [place] [address] Sodium [Moles/Vol] 137 mmol/L Normal 135-145 [facility] Comment on above: Performed By: #### 1 7373133, 3480538, 7718644, 3496821, 83754926, 1615197, 1775499, 3164820, 1226752 ####[facility] [address] [place] [address] CBC w/ Auto Diffon Erythrocyte distribution width (RBC) [Ratio] 14.0 % Normal 10.9-14.2 [facility] Comment on above: Performed By: #### 1 6746292, 6760926, 2333678, 4129023, 95783242, 1560917, 7692084, 3517058, 5647541 ####[address] [place] [address] Hematocrit (Bld) [Volume fraction] 37.9 % Normal 34.0-46.0 [facility] Comment on above: Performed By: #### 1 8631512, 5796480, 7033611, 7735051, 24679171, 1144698, 1185667, 8970484, 0678135 ####[facility] [address] [place] [address] Hemoglobin (Bld) [Mass/Vol] 12.6 g/dL Normal 12.0-16.0 [facility] Comment on above: Performed By: #### 1 3623257, 2541832, 4789209, 8106750, 49631763, 6168552, 0935255, 3960166, 8095923 ####[facility] [address] [place] [address] MCH (RBC) [Entitic mass] 28.0 pg Normal 27.0-34.0 [facility] Comment on above: Performed By: #### 1 8394518, 8119179, 5818478, 4304389, 84602378, 8318549, 9047376, 5911778, 1671661 ####[facility] [address] [place] [address] MCHC (RBC) [Mass/Vol] 33.3 g/dL Normal 31.4-36.0 [facility] Comment on above: Performed By: #### 1 5052210, 6326744, 2615699, 8622605, 70050760, 6868371, 7422086, 1531423, 3817577 ####[address] [place] [address] MCV (RBC) [Entitic vol] 84.0 fL Normal 80.0-100.0 [facility] Comment on above: Performed By: #### 1 9276842, 6551006, 3599657, 9984606, 62617958, 4937657, 0210744, 0691259, 7007896 ####[facility] [address] [place] [address] Platelet mean volume (Bld) [Entitic vol] 7.9 fL Normal 6.4-10.8 [facility] Comment on above: Performed By: #### 1 3516245, 0813420, 8280405, 9776810, 69122569, 4423204, 1574427, 3303007, 9944780 ####[address] [address] Platelets (Bld) [#/Vol] 442.0 E9/L Normal 150.0-500.0 [facility] Comment on above: Performed By: #### 1 6556542, 4579212, 1483938, 8820494, 57773636, 3446947, 9752132, 2584651, 1233646 ####[address] [place] [address] RBC (Bld) [#/Vol] 4.5 E12/L Normal 4.3-5.9 [facility] Comment on above: Performed By: #### 1 5247708, 0894611, 6080860, 4877756, 49573502, 8269980, 6237232, 5766902, 7348740 ####[facility] [address] [place] [address] WBC corrected for nucl RBC Auto (Bld) [#/Vol] 6.8 E9/L Normal 4.0-11.0 [facility] Comment on above: Performed By: #### 1 6984903, 7578395, 6395572, 7381138, 89063828, 2516696, 0581690, 4870076, 8712150 ####[facility] [address] [place] [address] CHEMISTRYOrdered By: Debby Cleveland on 03-07-2023 Acetaminophen [...] 14 mmol/L Normal 6 - 16 mEq/L [facility] Calcium [Mass/Vol] 9.4 mg/dL Normal 8.9 - 11. 1 mg/dL [facility] Chloride [Moles/Vol] 103 mmol/L Normal 101 - 1 11 mmol/L [facility] CO2 [Moles/Vol] 24 mmol/L Normal 21 - 31 mmol/L [facility]isol Creatinine [Mass/Vol] 0.9 mg/dL Normal 0.5 - 1.3 mg/dL [facility] Ethanol [Mass/Vol] mg/dL Normal <=7mg/dL [facility] GFR/1.73 sq M.predicted among non-blacks MDRD (S/P/Bld) [Vol rate/Area] 95 mL/min/1.73 m2 Normal >=59mL/min/ 1.73 m2 [facility] Chem S Glucose [Mass/Vol] 95 mg/dL Normal [...] Remisol Consent for Treatmenton Consent for Treatment [id number]:12 7 Normal [facility] ED Clinical Summaryon 2022 ED Clinical Summary (Inserted Image. Nida ble to display) [address] [address] ED Clinical Summary Person Information Name: ROSE MARY SCHNEIDER Kimberly[facility]Lenny Age: 17 Years : 2005 Sex: Female Language: Guatemalan PCP: Claudia Ellington MD Marital Status: Single Phone: [phone] Visit Id: Visit Reason: Suicidal ideation; Intentional ingestion - overdose; SUICIDAL IDEATION Speciality: Acuity: 1 Enc Type: Observation Med Service: Emergency Arrival: 03/07/2023 14:06:45 Discharge: LOS: 000 04:36 Checkin: 03/07/2023 14:06:45 Checkout: 03/07/2023 18:42:28 Dispo Type: Admitted as IP to this [facility] EVENTS: Event Name Event Status Request Date/Time [...] 03/07/2023 18:42:28 03/07/2023 18:42:28 03/07/2023 18:42:28 ADDRESS: [address] [place] [address] [address] [place] [id number] [facility] DOC NOTES: MEDICAL INFORMATION: Prescriptions Given: [...] 6:Obesity; 7:On deep vein thrombosis (DVT) prophylaxis Normal [facility] ED Note-Physicianon 03-07-20 ED Note-Physician Basic [...] Oral Susp 240 mL, 50 gm, Oral Ywlblc091-TD [F] 175 mL + acetylSoln-IV [F] 61907 mg, IV Piggyback Dextrose 5% in Water [...] Seizure Procedure/ (more content not included)... Normal [facility] Comment on above: Result Comment: Elec tronically Signed By: Justice Browne MD\.br\Date and Time Signed: 03/07/23 17:43 EDT ED Patient Education Noteon 03-07-2023 ED Patient Education Note Normal [facility] ED Patient Summaryon 023 ED Patient Summary (Inserted Image. Nida ble to display) [address] [address] Patient Discharge Instructions Person Information Name: ROSE MARY SCHNEIDER Age: 17 Years Arrival Date: 03/07/2023 14:06:45 Discharge Diagnosis: 1:Intentional acetaminophen overdose; 2:Suicidal ideation; 3:Antihistamines overdose; 4:Depression; 5:Seizure; 6:Obesity; 7:On deep vein thrombosis (DVT) prophylaxis Primary Care Physician: Claudia Ellington MD Provider Information Primary Provider: Justice Browne MD Advanced [employer] Ac[employer] Partner:None The exam and treatment you received in the Emergency Department were for an urgent problem and are not intended as complete care. It is important that you follow up with a doctor, nurse practitioner, or physician?s research assistant member for ongoing care. If your symptoms become [...] opioids can be used to help relieve fwddtann-xy-xhkjgd pain and are often prescribed following a [...] be struggling with addiction, tell your health point of care specialist and ask for guidance or call [facility] National Helpline at 1-199-961-BYLC. v Source: [place] Department of Health and Human (more content not included)... Normal [facility] Ethanolon 03-07-2023 Ethanol [Mass/Vol] mg/dL Normal <=7 [facility] Comment on above: Performed By: #### 2 567524 #### [facility] [address] [place] [address] HEMATOLOGYOrdered By: SYSTEM SYSTEM on 03-07-2023 Basophils/100 [...] 84.0 fL Normal 80.0 - 100.0 fL [facility] HemeAutoSS Platelet mean volume (Bld) [Entitic vol] 7.9 fL Normal 6.4 - 10.8 fL [facility] HemeAutoSS Platelets (Bld) [#/Vol] 442.0 E9/L Normal 150.0 - 500.0 E9/L [facility] HemeAutoSS RBC (Bld) [#/Vol] 4.5 E12/L Normal 4.3 - 5.9 E12/L [facility] HemeAutoSS WBC corrected for nucl RBC Auto (Bld) [#/Vol] 6.8 E9/L Normal 4.0 - 11.0 E9/L [facility] HemeAutoSS Hep Func Panelon 03-07-2023 Albumin [Mass/Vol] 3.2 g/dL Low 3.3-5.0 [facility] Comment on above: Performed By: #### 2 [id number], [id number] #### [facility] [address] [place] [address] Albumin/Globulin (S) [Mass conc ratio] 0.7 Low 1.1-2.2 [facility] Comment on above: Performed By: #### 2 245018, [id number] #### [facility] [address] [place] [address] ALP [Catalytic activity/Vol] 45 Int._Unit/L Normal 21-98 [facility] Comment on above: Performed By: #### 2 [id number], [id number] #### [facility] [address] [place] [address] ALT No additional P-5'-P [Catalytic activity/Vol] 12 Int._Unit/L Normal 6-46 [facility] Comment on above: Performed By: #### 2 981752, [id number] #### [facility] [address] [place] [address] AST [Catalytic activity/Vol] 16 Int._Unit/L Normal 5-43 [facility] Comment on above: Performed By: #### 2 888955, 2478074 #### [facility] [address] [place] [address] Bilirubin [Mass/Vol] 0.2 mg/dL Normal 0.0-1.1 [facility] Comment on above: Performed By: #### 2 648363, 5881098 #### [facility] [address] [place] [address] Bilirubin.indirect [Mass or moles/Vol] UTC Abnormal 0.1-0.9 [facility] Comment on above: Result Comment: Resu lt verified by Discern Rule. Performed result UTC (Unable to Calculate) was sent as an Alpha code due the inability to calculate a valid numeric value. Performed By: #### 2 [id number], [id number] #### [facility] [address] [place] [address] Globulin (S) [Mass/Vol] 4.6 g/dL High 1.4-4.0 [facility] Comment on above: Performed By: #### 2 926272, 9229763 #### [facility] [address] [place] [address] Protein [Mass/Vol] 7.8 g/dL Normal 6.0-7.8 [facility] Comment on above: Performed By: #### 2 927622, 5680574 #### [facility] [address] [place] [address] Bilirubin.direct [Mass/Vol] mg/dL Normal 0.1-0.4 [facility] Comment on above: Performed By: #### 2 243945, 8623169 #### [facility] [address] [place] [address] Bilirubin.indirect [Mass or moles/Vol] UTC Abnormal 0.1-0.9 [facility] Comment on above: Result Comment: Resu lt verified by Discern Rule. Performed result UTC (Unable to Calculate) was sent as an Alpha code due the inability to calculate a valid numeric value. Performed By: #### 1 [id number], 4627699, 7435007, 5968781, 26215860, 7661986, 8403056, 9188472, 5087085 ####[facility] [address] [place] [address] Albumin [Mass/Vol] 3.1 g/dL Low 3.3-5.0 [facility] Comment on above: Performed By: #### 1 7488391, 9071266, 7522916, 2752959, 83017506, 5650174, 6249174, 1253596, 5546708 ####[facility] [address] [place] [address] Albumin/Globulin (S) [Mass conc ratio] 0.7 Low 1.1-2.2 [facility] Comment on above: Performed By: #### 1 0559066, 1546057, 4014721, 6543997, 85244007, 8111159, 4154515, 2288406, 5828608 ####[facility] [address] [place] [address] ALP [Catalytic activity/Vol] 48 Int._Unit/L Normal 21-98 [facility] Comment on above: Performed By: #### 1 3395374, 2358795, 4019017, 0736751, 52651568, 8155431, 0952634, 1935053, 5213986 ####[address] [place] [address] ALT No additional P-5'-P [Catalytic activity/Vol] 11 Int._Unit/L Normal 6-46 [facility] Comment on above: Performed By: #### 1 7810056, 8173454, 8104994, 9065488, 26975360, 7484271, 4251996, 8884109, 4688801 ####[address] [place] [address] AST [Catalytic activity/Vol] 16 Int._Unit/L Normal 5-43 [facility] Comment on above: Performed By: #### 1 7630227, 2771369, 2444066, 6644989, 94739287, 2670582, 6416283, 2352163, 3646933 ####[facility] [address] [place] [address] Bilirubin [Mass/Vol] 0.5 mg/dL Normal 0.0-1.1 [facility] Comment on above: Performed By: #### 1 5166454, 5460577, 4324598, 4284457, 86470832, 8660555, 9620198, 0049707, 3713629 ####[facility] [address] [place] [address] Globulin (S) [Mass/Vol] 4.4 g/dL High 1.4-4.0 [facility] Comment on above: Performed By: #### 1 9540207, 4655617, 3371378, 2297570, 08179586, 8407332, 8629266, 1282253, 6118219 ####[facility] [address] [place] [address] Protein [Mass/Vol] 7.5 g/dL Normal 6.0-7.8 [facility] Comment on above: Performed By: #### 1 2602682, 6312441, 2276134, 8790401, 57612999, 3369015, 7678346, 8599998, 0530127 ####[facility] [address] [place] [address] Bilirubin.direct [Mass/Vol] mg/dL Normal 0.1-0.4 [facility] Comment on above: Performed By: #### 1 4487621, 6646668, 5882244, 6333390, 52870437, 0004235, 8932633, 2345774, 4439770 ####[facility] [address] [place] [address] Lipase Levelon 03-07-2023 Lipase [Catalytic activity/Vol] 24 U/L Normal 13-58 [facility] Comment on above: Performed By: #### 1 3506445, 7620110, 8499635, 6599433, 77984471, 6212214, 0140645, 2334574, 2568642 #### [facility] [address] [place] [address] Monitor Recordon 03-07-2023 Monitor Record [id number]#[id number]:1 27 Normal [facility] Monitor Record [id number]:1 27 Normal [facility] Monitor Record [id number]#[id number]:1 27 Normal [facility] Pre-Arrival Noteon 3 Pre-Arrival Note Pre-Arrival Summary Name: , Current Date: 03/07/2023 14:11:15 EDT Gender: Date of : Age: 17 Pre-Arrival Type: EMS ETA: 03/07/2023 14:33:00 EDT Primary Care Physician: Presenting Problem: overdose tylenol PM Pre-Arrival User: Julianne Sanford RN Referring Source: Location: [place] Completion Date/Time: 03/07/2023 14:03:00 [facility] Emergency Department Pre-Hospital Report Form ____ Vital Signs: Pre-Hospital Report: Treatment in Route: Response to Treatment: Misc. Issues: Normal [facility] Progress Note-Nurseon 2022 Progress Note-Nurse Poison Control aj d and spoke with Chiquis who verbalized [address] Browne aware Normal [facility] SEROLOGYOrdered By: Kizzy Newby on 03-07-2023 Beta hCG Ql Negative (03/07/23 2:43 PM) Normal [facility] Man Sero Salicylateon 03-07-2023 Salicylates [Mass/Vol] mg/dL Low 6-29 [facility] Comment on above: Performed By: #### 1 [id number], 4760081, 8149773, 0389661, 15945292, 9640329, 9232582, 8883467, 5741874 #### [facility] [address] [place] [address] U Drug Screenon 03-07-2023 Amphetamines Screen method >1000 ng/mL Ql (U) Negative Normal Negative [facility] Comment on above: Result Comment: Nega tive Cutoff: <1000 ng/mL Performed By: #### 2 992326 #### [facility] [address] [place] [address] Barbiturates Screen Ql (U) Negative Normal Negative [facility] Comment on above: Result Comment: Nega tive Cutoff: <200 ng/mL Performed By: #### 2 275703 #### [facility] [address] [place] [address] Benzodiazepines Ql (U) Negative Normal Negative [facility] Comment on above: Result Comment: Nega tive Cutoff: <200 ng/mL Performed By: #### 2 339541 #### [facility] [address] [place] [address] Cocaine Ql (U) Negative Normal Negative [facility] Comment on above: Result Comment: Nega tive Cutoff: <300 ng/mL Performed By: #### 2 524294 #### [facility] [address] [place] [address] Opiates Screen Ql (U) Negative Normal Negative [facility] Comment on above: Result Comment: Nega tive Cutoff: <300 ng/mL Performed By: #### 2 969109 #### [facility] [address] [place] [address] Phencyclidine Screen method >25 ng/mL Ql (U) Negative Normal Negative [facility] Comment on above: Result Comment: Nega tive Cutoff: <25 ng/mL These drug screen results are to be used for medical (i.e., treatment) purposes only. Unconfirmed drug screening results must not be used for non-medical purposes (e.g., employment testing, legal testing). Performed By: #### 2 621538 #### [facility] [address] [place] [address] Tetrahydrocannabinol Screen method >50 ng/mL Ql (U) Negative Normal Negative [facility] Comment on above: Result Comment: Nega tive Cutoff: <50 ng/mL Performed By: #### 2 986452 #### [facility] [address] [place] [address] XR Chest Single Viewon 03-07 XR Chest [...] mGy = na DAP = na Normal [facility] eGFRon 03-07-2023 GFR/1.73 sq M.predicted among non-blacks MDRD (S/P/Bld) [Vol rate/Area] 95 mL/min/1.73 m2 Normal >=59 [facility] Comment on above: Order Comment: Order added by Discern Expert. Result Comment: Inside Barrel Polisher marleny kidney disease could be indicated at eGFR's of less than 60 mL/min/1.73m2. Kidney failure is indicated at less than 15 mL/min/1.73m2. Performed By: #### 1 8310210, 5021212, 4237524, 0010294, 99754737, 9402857, 0721115, 9229162, 1063062 ####[facility] [address] [place] [address] B hCG Qualon 02-27-2023 Beta hCG Ql Negative Normal [facility] Comment on above: Performed By: #### 2 898264, 6961820 #### [facility] [address] [place] [address] Consent for Treatmenton 02-01 Consent for Treatment [id number]#[id number]:12 7 Normal [facility] Physician Orderon 02-27-2023 Physician Order [id number]#[id number]:1 27 Normal [facility] CHEMISTRYOrdered By: SYSTEM SYSTEM on 11-13-2022 [...] hCG Ql Negative (11/13/22 2:56 PM) Normal [facility] Man Sero URINALYSISOrdered By: Marilyn Rivas on 11-13-2022 Bacteria LM Ql (Urine sed) 1+ /HPF Invalid Interpretation Code Trace/HPF [facility] Auto SS Bilirubin Ql (U) Negative [...] PM) Normal Negative [facility] UA Auto SS Hagan.plasma/Hagan .RBC (Bld) [Mass ratio] 0-3 /HPF Normal [...] [facility] UA Auto SS Urobilinogen Qn (U) 0.9403751 {Ed'U}/dL Normal 0.0 - 1.0 EU/dL [facility] Auto SS WBC Auto Ql (U) Trace *ABN* (11/13/22 2:29 PM) Invalid Interpretation Code Negative [facility] UA Auto SS WBC LM.HPF (Urine sed) [#/Area] 0-5 /HPF Normal 0-5/HPF [facility] UA Auto SS CBC AUTO DIFFon 11-05-2022 BASO # 0.0 103/ul Normal 0.0-0.1 [facility] Comment on above: Performed By: #### C BC #### [facility] [address] [address] [address] Tara Jackson Basophils/100 WBC (Bld) 0.5 % Normal 0.2-2.0 [facility] Comment on above: Performed By: #### C BC #### [facility] [address] [address] [address] Tara Jackson EO # 0.3 103/ul Normal 0.0-0.7 [facility] Comment on above: Performed By: #### C BC #### [facility] [address] [address] [address] Tara Jackson Eosinophils/100 WBC (Bld) 4.9 % Normal 0.9-7.0 [facility] Comment on above: Performed By: #### C BC #### [facility] [address] [place] [address] Dr. Tara Jackson Erythrocyte distribution width (RBC) [Ratio] 12.8 % Normal 11.0-15.0 [facility] Comment on above: Performed By: #### C BC #### [facility] [address] [place] [address] Dr. Tara Jackson Hematocrit (Bld) [Volume fraction] 35.8 % Critically low 36.0-48.0 [facility] Comment on above: Performed By: #### C BC #### [facility] [address] [place] [address] Dr. Tara Jackson Hemoglobin (Bld) [Mass/Vol] 11.8 g/dL Critically low 12.0-16.0 [facility] Comment on above: Performed By: #### C BC #### [facility] [address] [place] [address] Dr. Tara Jackson IG # 0.01 10e3/ul Normal 0.00-0.03 [facility] Comment on above: Performed By: #### C BC #### [facility] [address] [address] [address] Tara Jackson IG % 0.2 % Normal 0.0-0.5 [facility] Comment on above: Performed By: #### C BC #### [facility] [address] [place] [address] Dr. Tara Jackson LYMPH # 1.7 103/ul Normal 1.2-3.8 [facility] Comment on above: Performed By: #### C BC #### [facility] [address] [place] [address] Dr. Tara Jackson Lymphocytes/100 WBC (Bld) 30.2 % Normal 20.5-60.0 [facility] Comment on above: Performed By: #### C BC #### [facility] [address] [place] [address] Dr. Tara Jackson MANUAL DIFF REQ NO Normal [facility] Comment on above: Performed By: #### C BC #### [facility] [address] [place] [address] Dr. Tara Jackson MCH (RBC) [Entitic mass] 27.6 pg Normal 26.7-34.0 [facility] Comment on above: Performed By: #### C BC #### [facility] [address] [place] [address] Dr. Tara Jackson MCHC (RBC) [Mass/Vol] 33.0 g/dL Normal 29.9-35.2 [facility] Comment on above: Performed By: #### C BC #### [facility] [address] [place] [address] Dr. Tara Jackson MCV (RBC) [Entitic vol] 83.8 fL Normal 79.1-95.6 [facility] Comment on above: Performed By: #### C BC #### [facility] [address] [place] [address] Dr. Tara Jackson MONO # 0.5 103/ul Normal 0.3-0.8 [facility] Comment on above: Performed By: #### C BC #### [facility] [address] [place] [address] Dr. Tara Jackson Monocytes/100 WBC (Bld) 7.9 % Normal 1.7-12.0 [facility] Comment on above: Performed By: #### C BC #### [facility] [address] [place] [address] Dr. Tara Jackson NEUT # 3.2 103/ul Normal 1.4-6.5 [facility] Comment on above: Performed By: #### C BC #### [facility] [address] [place] [address] Dr. Tara Jackson Neutrophils/100 WBC (Bld) 56.3 % Normal 43.0-75.0 [facility] Comment on above: Performed By: #### C BC #### [facility] [address] [place] [address] Dr. Tara Jackson Platelet mean volume (Bld) [Entitic vol] 9.0 fL Critically low 9.5-13.5 [facility] Comment on above: Performed By: #### C BC #### [facility] [address] [place] [address] Dr. Tara Jackson PLT 373 103/ul Normal 150-450 [facility] Comment on above: Performed By: #### C BC #### [facility] [address] [place] [address] Dr. Tara Jackson RBC 4.27 106/ul Normal 3.40-5.30 [facility] Comment on above: Performed By: #### C BC #### [facility] [address] [place] [address] Dr. Tara Jackson WBC 5.7 103/ul Normal 4.0-11.0 [facility] Comment on above: Performed By: #### C BC #### [facility] [address] [place] [address] Dr. 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 Admission #: [id number] Family : TEENA TRAN . Order #: [id number] CLICK HERE TO VIEW EXAM ECHOCARDIOGRAM REPORT [...] Tafoya M.D. on 11/06/2022 at 18:40 Normal [facility] PREG HCG QUALon 11-05-2022 , QUAL Negative Normal NEGATIVE [facility] Comment on above: Performed By: #### C BC #### [facility] [address] [place] [address] Dr. Tara Jackson PROF CHEM 8 (BAS METB)on Anion gap [Moles/Vol] 11.4 mmol/L Normal [facility] Comment on above: Performed By: #### C VDTBH #### [facility] [address] [address] [address] Tara Jackson Calcium [Mass/Vol] 8.5 mg/dL Normal 8.5-10.1 [facility] Comment on above: Performed By: #### C VDTBH #### [facility] [address] [address] [address] Tara Jackson Chloride [Moles/Vol] 103 mmol/L Normal 98-107 [facility] Comment on above: Performed By: #### C VDTBH #### [facility] [address] [place] [address] Dr. Tara Jackson CO2 [Moles/Vol] 27.5 mmol/L Normal 21.0-32.0 [facility] Comment on above: Performed By: #### C VDTBH #### [facility] [address] [place] [address] Dr. Tara Jackson Creatinine [Mass/Vol] 0.67 mg/dL Normal 0.55-1.02 [facility] Comment on above: Performed By: #### C VDTBH #### [facility] [address] [place] [address] Dr. Tara Jackson Glucose [Mass/Vol] 93 mg/dL Normal 74-106 [facility] Comment on above: Performed By: #### C VDTBH #### [facility] [address] [place] [address] Dr. Tara Jackson Potassium [Moles/Vol] 3.9 mmol/L Normal 3.5-5.1 [facility] Comment on above: Performed By: #### C VDTBH #### [facility] [address] [place] [address] Dr. Tara Jackson Sodium [Moles/Vol] 138 mmol/L Normal 136-145 [facility] Comment on above: Performed By: #### C VDTBH #### [facility] [address] [place] [address] Dr. Tara Jackson Urea nitrogen [Mass/Vol] 15.0 mg/dL Normal 6.4-19.3 [facility] Comment on above: Performed By: #### C VDTBH #### [facility] [address] [place], [place] [address] Dr. Tara Jackson Urea nitrogen/Creatinine [Mass ratio] 22.4 mg/mg Normal [facility] Comment on above: Performed By: #### C VDTBH #### [facility] [address] [place], [place] [address] Dr. Tara Jackson CHEMISTRYOrdered By: SYSTEM SYSTEM [...] 2.5 second(s) [facility] Auto Coag HEMATOLOGYOrdered By: Change Lane SYSTEM on 10-10-2022 Basophils/100 WBC (Bld) 0.5 [...] NEG Ctl Pass (10/10/22 10:09 PM) Normal [facility] Man Sero Rapid COV Int POS Ctl Pass (10/10/22 10:09 PM) Normal [facility] Man Sero SARS-CoV+SARS-CoV-2 (COVID-19) Ag IA.rapid Ql (Resp) Not Detected (10/10/22 10:09 PM) Normal Not Detected [facility] Man Sero SEROLOGYOrdered By: Ruth orellana on 10-10-2022 HCG.beta subunit (U) [Moles/Vol] Negative Normal [facility] Man Sero CHEMISTRYOrdered By: SYSTEM SYSTEM on [...] 10 - 20 [facility] Remisol COAGULATIONOrdered By: Allis on Megha on 10-06-2022 aPTT Coag (PPP) [Time] 35.1 [...] (Urine sed) [#/Area] 0-2 /HPF Normal 0-2/HPF [facility] UA Auto SS Glucose Test strip (U) [Mass/Vol] Negative (10/06/22 1:20 AM) Normal Negative [facility]A Auto SS Hemoglobin Ql (U) Trace *ABN* (10/06/22 1:20 AM) Invalid Interpretation Code Negative [facility] UA Auto SS Ketones (U) [Mass/Vol] Negative (10/06/22 1:20 AM) Normal Negative [facility] UA Auto SS Hagan.plasma/Hagan .RBC (Bld) [Mass ratio] 0-3 /HPF Normal 0-3/HPF [facility]A Auto SS Mucus Ql (Urine sed) 2+ (10/06/22 1:20 AM) Normal [facility] UA Auto SS Nitrite Ql (U) Negative (10/06/22 1:20 AM) Normal Negative [facility] UA Auto SS pH (U) 6.0 *NA* (10/06/22 1:20 AM) Invalid Interpretation Code 5.0 - 9.0 [facility] UA Auto SS Protein (U) [Mass/Vol] Negative (10/06/22 1:20 AM) Normal Negative [facility] UA Auto SS Specific gravity (U) [Rel density] >=1.030 *NA* (10/06/22 1:20 AM) Invalid Interpretation Code 1.005 - 1.030 [facility] UA Auto SS UA Spec Desc Clean Catch (10/06/22 1:20 AM) Normal [facility] UA Auto SS Urobilinogen Qn (U) 0.9043430 {Ed'U}/dL Normal 0.0 - 1.0 EU/dL [facility] UA Auto SS WBC Auto Ql (U) Negative (10/06/22 1:20 AM) Normal Negative [facility] UA Auto SS WBC LM.HPF (Urine sed) [#/Area] 0-5 /HPF Normal 0-5/HPF [facility] UA Auto SS CHEMISTRYOrdered By: Lab ROP User on 10-05-2022 Glucose [Mass/Vol] 131 mg/dL High 55 - 99 mg/dL [facility] POC Subsection Comment on above: Result Comment: Shanique percy Meter POC Device SN [id number] Invalid Interpretation Code [facility] POC Subsection POC User ID [id number] Invalid Interpretation Code [facility] POC Subsection POC Username CHRISTIANO GARCIA Invalid Interpretation Code [facility] POC Subsection LEVETIRACETAM, SERUM OR PLAS MAon 09-27-2022 Levetiracetam, S 13.6 ug/mL Normal 10.0-40.0 [facility] Comment on above: Performed By: #### C BC #### [facility] [address] [place] [address] Dr. Tara Jackson INSULINon 09-26-2022 Insulin 21.0 uIU/mL Normal 2.6-24.9 [facility] [facility] Comment on above: Performed By: #### I NSULIN #### [facility] [address] [place] [address] Dr. Tara Jackson BILIRUBIN CONJUGATED (DIRECT )on 09-25-2022 BILI, CONJUGATED 0.1 mg/dL Normal 0.0-0.2 [facility] Comment on above: Performed By: #### C VDTBH #### [facility] [address] [place] [address] Dr. Tara Jackson CBC AUTO DIFFon 09-25-2022 BASO # 0.0 103/ul Normal 0.0-0.1 [facility] Comment on above: Performed By: #### C VDTBH #### [facility] [address] [place] [address] Dr. Tara Jackson Basophils/100 WBC (Bld) 0.6 % Normal 0.2-2.0 [facility] Comment on above: Performed By: #### C VDTBH #### [facility] [address] [place] [address] Dr. Tara Jackson EO # 0.3 103/ul Normal 0.0-0.7 [facility] Comment on above: Performed By: #### C VDTBH #### [facility] [address] [place] [address] Dr. Tara Jackson Eosinophils/100 WBC (Bld) 4.5 % Normal 0.9-7.0 [facility] Comment on above: Performed By: #### C VDTBH #### [facility] [address] [place] [address] Dr. Taar Jackson Erythrocyte distribution width (RBC) [Ratio] 12.2 % Normal 11.0-15.0 [facility] Comment on above: Performed By: #### C VDTBH #### [facility] [address] [place] [address] Dr. Tara Jackson Hematocrit (Bld) [Volume fraction] 38.4 % Normal 36.0-48.0 [facility] Comment on above: Performed By: #### C VDTBH #### [facility] [address] [place] [address] Dr. Tara Jackson Hemoglobin (Bld) [Mass/Vol] 13.0 g/dL Normal 12.0-16.0 [facility] Comment on above: Performed By: #### C VDTBH #### [facility] [address] [place] [address] Dr. Tara Jackson IG # 0.01 10e3/ul Normal 0.00-0.03 [facility] Comment on above: Performed By: #### C VDTBH #### [facility] [address] [place] [address] Dr. Tara Jackson IG % 0.2 % Normal 0.0-0.5 [facility] Comment on above: Performed By: #### C VDTBH #### [facility] [address] [place] [address] Dr. Tara Jackson LYMPH # 1.8 103/ul Normal 1.2-3.8 [facility] Comment on above: Performed By: #### C VDTBH #### [facility] [address] [place] [address] Dr. Tara Jackson Lymphocytes/100 WBC (Bld) 28.7 % Normal 20.5-60.0 [facility] Comment on above: Performed By: #### C VDTBH #### [facility] [address] [place] [address] Dr. Tara Jackson MANUAL DIFF REQ NO Normal [facility] Comment on above: Performed By: #### C VDTBH #### [facility] [address] [place] [address] Dr. Tara Jackson MCH (RBC) [Entitic mass] 28.6 pg Normal 26.7-34.0 [facility] Comment on above: Performed By: #### C VDTBH #### [facility] [address] [place] [address] Dr. Tara Jackson MCHC (RBC) [Mass/Vol] 33.9 g/dL Normal 29.9-35.2 [facility] Comment on above: Performed By: #### C VDTBH #### [facility] [address] [place] [address] Dr. Tara Jackson MCV (RBC) [Entitic vol] 84.4 fL Normal 79.1-95.6 [facility] Comment on above: Performed By: #### C VDTBH #### [facility] [address] [place] [address] Dr. Tara Jackson MONO # 0.4 103/ul Normal 0.3-0.8 [facility] Comment on above: Performed By: #### C VDTBH #### [facility] [address] [place] [address] Dr. Tara Jackson Monocytes/100 WBC (Bld) 6.5 % Normal 1.7-12.0 [facility] Comment on above: Performed By: #### C VDTBH #### [facility] [address] [place] [address] Dr. Tara Jackson NEUT # 3.7 103/ul Normal 1.4-6.5 [facility] Comment on above: Performed By: #### C VDTBH #### [facility] [address] [place] [address] Dr. Tara Jackson Neutrophils/100 WBC (Bld) 59.5 % Normal 43.0-75.0 [facility] Comment on above: Performed By: #### C VDTBH #### [facility] [address] [place] [address] Dr. Tara Jackson Platelet mean volume (Bld) [Entitic vol] 9.0 fL Critically low 9.5-13.5 [facility] Comment on above: Performed By: #### C VDTBH #### [facility] [address] [address] [address] Tara Jackson PLT 401 103/ul Normal 150-450 [facility] Comment on above: Performed By: #### C VDTBH #### [facility] [address] [place] [address] Dr. Tara Jackson RBC 4.55 106/ul Normal 3.40-5.30 [facility] Comment on above: Performed By: #### C VDTBH #### [facility] [address] [place] [address] Dr. Tara Jackson WBC 6.2 103/ul Normal 4.0-11.0 [facility] Comment on above: Performed By: #### C VDTBH #### [facility] [address] [place] [address] Dr. Tara Jackson FREE THYROXINE INDEX T7on FTI 2.77 Normal 1.30-4.50 [facility] Comment on above: Performed By: #### C BC #### [facility] [address] [place] [address] Dr. Tara Jackson T3U 36.0 % Normal 30.0-39.0 [facility] Comment on above: Performed By: #### C BC #### [facility] [address] [place] [address] Dr. Tara Jackson T4 [Mass/Vol] 7.70 ug/dL Normal 5.40-10.60 [facility] Comment on above: Performed By: #### C BC #### [facility] [address] [place] [address] Dr. Tara Jackson GLYCOHEMOGLOBIN A1Con 2022 ADA RECOMMENDATION SEE BELOW Normal [facility] Comment on above: Result Comment: ADA RECOMMENDED LIMIT 4.0 - 6.0 ADA THERAPEUTIC TARGET < 7.0 ACTION SUGGESTED > 7.0 Performed By: #### A 1C #### [facility] [address] [place] [address] Dr. Tara Jackson Glucose [Mass/Vol] 103 mg/dL Normal [facility] Comment on above: Performed By: #### A 1C #### [facility] [address] [place] [address] Dr. Tara Jackson HbA1c (Bld) [Mass fraction] 5.2 % Normal 4.5-6.2 [facility] Comment on above: Performed By: #### A 1C #### [facility] [address] [place] [address] Dr. Tara Jackson IRONon 09-25-2022 Iron [Mass/Vol] 33.0 ug/dL Critically low 50.0-170.0 [facility] Comment on above: Performed By: #### C VDTB #### [facility] [address] [place] [address] Dr. Tara Jackson LIPID PROFILEon 09-25-2022 CHOL-HDL RATIO NORM SEE BELOW Normal [facility] Comment on above: Result Comment: 3.3 - 4.4 LOW RISK 4.4 - 7.1 AVERAGE RISK 7.1 - 11.0 MODERATE RISK >11.0 HIGH RISK Performed By: #### C BC #### [facility] [address] [place] [address] Dr. Tara Jackson Cholesterol [Mass/Vol] 189 mg/dL Normal 104-227 [facility] Comment on above: Performed By: #### C BC #### [facility] [address] [place] [address] Dr. Tara Jackson Cholesterol in HDL [Mass/Vol] 36 mg/dL Normal 29-69 [facility] Comment on above: Performed By: #### C BC #### [facility] [address] [place] [address] Dr. Tara Jackson Cholesterol in LDL [Mass/Vol] 128.4 mg/dL Normal 46.0-140.0 [facility] Comment on above: Performed By: #### C BC #### [facility] [address] [place] [address] Dr. Tara Jackson Cholesterol.total/Chol esterol in HDL [Mass ratio] 5.3 {ratio} Normal [facility] Comment on above: Performed By: #### C BC #### [facility] [address] [place] [address] Dr. Tara Jackson HDL NORMAL > or = 60 mg/dl - LO W CARDIOVASCULAR RISK <40 mg/dl - HIGH CARDIOVASCULAR RISK Normal [facility] Comment on above: Performed By: #### C BC #### [facility] [address] [address] [address] Tara Jackson LDL CALC NORMAL SEE BELOW Normal [facility] Comment on above: Result Comment: <100 mg/dl OPTIMAL 100 - 129 mg/dl NEAR OR ABOVE OPTIMAL 130 - 159 mg/dl BORDERLINE HIGH 160 - 189 mg/dl HIGH >190 mg/dl VERY HIGH Performed By: #### C BC #### [facility] [address] [address] [address] Tara Jackson Triglyceride [Mass/Vol] 123 mg/dL Normal 53-208 [facility] Comment on above: Performed By: #### C BC #### [facility] [address] [place] [address] Dr. Tara Jackson VLDL CALC 24.6 mg/dL Normal [facility] Comment on above: Performed By: #### C BC #### [facility] [address] [address] [address] Tara Jackson PROF 14(COMP METB)on 023 Albumin [Mass/Vol] 3.2 g/dL Critically low 3.4-5.0 [facility] Comment on above: Performed By: #### C BC #### [facility] [address] [place] [address] Dr. Tara Jackson Albumin/Globulin [Mass ratio] 0.7 {ratio} Normal [facility] Comment on above: Performed By: #### C BC #### [facility] [address] [place] [address] Dr. Tara Jackson ALP [Catalytic activity/Vol] 80 U/L Normal 65-260 [facility] Comment on above: Performed By: #### C BC #### [facility] [address] [address] [address] Tara Jackson ALT [Catalytic activity/Vol] 18 U/L Normal 14-59 [facility] Comment on above: Performed By: #### C BC #### [facility] [address] [place] [address] Dr. Tara Jackson Anion gap [Moles/Vol] 9.0 mmol/L Normal [facility] Comment on above: Performed By: #### C BC #### [facility] [address] [place] [address] Dr. Tara Jackson AST [Catalytic activity/Vol] 18 U/L Normal 15-37 [facility] Comment on above: Performed By: #### C BC #### [facility] [address] [place] [address] Dr. Tara Jackson Bilirubin [Mass/Vol] 0.2 mg/dL Normal 0.2-1.0 [facility] Comment on above: Performed By: #### C BC #### [facility] [address] [place] [address] Dr. Tara Jackson Calcium [Mass/Vol] 9.1 mg/dL Normal 8.5-10.1 [facility] Comment on above: Performed By: #### C BC #### [facility] [address] [place] [address] Dr. Tara Jackson Chloride [Moles/Vol] 101 mmol/L Normal 98-107 [facility] Comment on above: Performed By: #### C BC #### [facility] [address] [place] [address] Dr. Tara Jackson CO2 [Moles/Vol] 30.2 mmol/L Normal 21.0-32.0 [facility] Comment on above: Performed By: #### C BC #### [facility] [address] [place] [address] Dr. Tara Jackson Creatinine [Mass/Vol] 0.80 mg/dL Normal 0.55-1.02 [facility] Comment on above: Performed By: #### C BC #### [facility] [address] [place] [address] Dr. Tara Jackson Globulin (S) [Mass/Vol] 4.3 g/dL Normal [facility] Comment on above: Performed By: #### C BC #### [facility] [address] [place] [address] Dr. Tara Jackson Glucose [Mass/Vol] 101 mg/dL Normal 74-106 [facility] Comment on above: Performed By: #### C BC #### [facility] [address] [place] [address] Dr. Tara Jackson Potassium [Moles/Vol] 4.2 mmol/L Normal 3.5-5.1 [facility] Comment on above: Performed By: #### C BC #### [facility] [address] [address] [address] Tara Jackson Protein [Mass/Vol] 7.5 g/dL Normal 6.4-8.2 [facility] Comment on above: Performed By: #### C BC #### [facility] [address] [place] [address] Dr. Tara Jackson Sodium [Moles/Vol] 136 mmol/L Normal 136-145 [facility] Comment on above: Performed By: #### C BC #### [facility] [address] [place] [address] Dr. Tara Jackson Urea nitrogen [Mass/Vol] 11.0 mg/dL Normal 6.4-19.3 [facility] Comment on above: Performed By: #### C BC #### [facility] [address] [place] [address] Dr. Tara Jackson Urea nitrogen/Creatinine [Mass ratio] 13.8 mg/mg Normal [facility] Comment on above: Performed By: #### C BC #### [facility] [address] [place] [address] Dr. Tara Jackson TSHon 09-25-2022 TSH 5.240 uIU/mL Critically high 0.516-4.130 [facility] Comment on above: Performed By: #### C BC #### [facility] [address] [place] [address] Dr. Tara Jackson [facility]on SARS-CoV-2 (COVID-19) RNA CHRISTIAN+probe Ql (Unsp spec) Not detected Normal NOT DETECTED [facility] Comment on above: Result Comment: This test is not yet approved or cleared by the [place] FDA. When there are no FDA-approved or cleared tests available, and other criteria are met, FDA can make tests available under an emergency access mechanism called an Emergency Use Authorization (EUA). The EUA for this test is supported by the [place] of Health and Human Service's (HHS's) declaration [...] SARS-CoV-2. Performed By: #### C VDTB #### [facility] [address] [place] [address] Dr. Tara Jackson INFLUENZA A AND B AGon 09[facility] Normal [facility] Comment on above: Result Comment: Nega tive for Flu A protein angiten. Infection due to Flu A cannot be ruled out. Flu A angiten in the sample may be below the detection limit of the test. Performed By: #### I NFLUAB #### [facility] [address] [place] [address] Dr. [facility] SEE BELOW Normal [facility] Comment on above: Result Comment: Nega tive for Flu B protein antigen. Infection due to Flu B cannot be ruled out. Flu B antigen in the sample may be below the detection limit of the test. Performed By: #### I NFLUAB #### [facility] [address] [place] [address] Dr. Tara Jackson INFLUENZA A AG Negative Normal NEGATIVE SEE COMMENT [facility] Comment on above: Performed By: #### I NFLUAB #### [facility] [address] [place] [address] Dr. Tara Jackson INFLUENZA B AG Negative Normal NEGATIVE SEE COMMENT [facility] Comment on above: Performed By: #### I NFLUAB #### [facility] [address] [place] [address] Dr. Tara Jackson Covid-19 PCR (CVDTB)on SARS-CoV-2 (COVID-19) RNA CHRISTIAN+probe Ql (Unsp spec) Not detected Normal NOT DETECTED [facility] Comment on above: Result Comment: When [...] for this test is supported by the [place] of Health and Human Service's declaration that [...] used). Performed By: #### C VDTBH #### [facility] [address] [place] [address] Dr. Tara Jackson INFLUENZA A AND B AGon 08-05 [facility] SEE BELOW Normal [facility] Comment on above: Result Comment: Nega tive for Flu A protein angiten. Infection due to Flu A cannot be ruled out. Flu A angiten in the sample may be below the detection limit of the test. Performed By: #### I NFLUAB #### [facility] [address] [place] [address] Dr. Tara Jackson INFLUBNEG SEE BELOW Normal [facility] Comment on above: Result Comment: Nega tive for Flu B protein antigen. Infection due to Flu B cannot be ruled out. Flu B antigen in the sample may be below the detection limit of the test. Performed By: #### I NFLUAB #### [facility] [address] [place] [address] Dr. Tara Jackson INFLUENZA A AG Negative Normal NEGATIVE SEE COMMENT [facility] Comment on above: Performed By: #### I NFLUAB #### [facility] [address] [address] [address] Tara Jackson INFLUENZA B AG Negative Normal NEGATIVE SEE COMMENT [facility] Comment on above: Performed By: #### I NFLUAB #### [facility] [address] [address] [address] Tara Jackson Albumin [Mass/volume] in Ser um or PlasmaOrdered By: Claudia Ellington on 07-31-2022 Albumin [Mass/Vol] 3.2 g/dL 3.2-5.5 [facility] Basophils Auto (Bld) [#/Vol] Ordered By: Claudia Ellington on 07-31-2022 Basophils (Bld) [#/Vol] 0.0 10*3/uL 0.0-0.1 [facility] Basophils/100 WBC Auto (Bld) Ordered By: Claudia Ellington on 07-31-2022 Basophils/100 WBC (Bld) 0.4 % . [facility] Cholesterol [Mass/volume] in Serum or PlasmaOrdered By: Claudia Ellington on 07-31-2022 Cholesterol [Mass/Vol] 264 mg/dL 140-200 [facility] Comment on above: Chol less than 200 m g/dl low riskChol 201-239 mg/dl borderline riskChol 240 mg/dl and greater high risk Cholesterol in LDL Calc [Mas s/Vol]Ordered By: Claudia Ellington on 07-31-2022 Cholesterol in LDL [Mass/Vol] 168 mg/dL 0-100 [facility] Comment on above: LDL ATP III CLASSIFI CATIONLDL less than 100 mg/dL OptimalLDL 100-129 mg/dL Near or above optimalLDL 130-159 mg/dL Borderline highLDL 160-189 mg/dL HighLDL greater than 189 mg/dL Very high Cholesterol in VLDL Calc [Ma ss/Vol]Ordered By: Claudia Ellington on 07-31-2022 Cholesterol in VLDL [Mass/Vol] 17 mg/dL [facility] Creatinine and Glomerular fi ltration rate.predicted panel (S/P/Bld)Ordered By: Claudia Ellington on 07-31-2022 Creatinine [Mass/Vol] 0.87 mg/dL 0.44-1.03 [facility] Eosinophils Auto (Bld) [#/Vo l]Ordered By: Claudia Ellington on 07-31-2022 Eosinophils (Bld) [#/Vol] 0.0 10*3/uL 0.0-0.7 [facility] Eosinophils/100 WBC Auto (Bl d)Ordered By: Claudia Ellington on 07-31-2022 Eosinophils/100 WBC (Bld) 0.5 % . [facility] Erythrocyte distribution wid th Auto (RBC) [Ratio]Ordered By: Claudia Ellington on 07-31-2022 Erythrocyte distribution width (RBC) [Ratio] 13.2 % 11.9-15.3 [facility] Estimated glomerular filtrat ion rate (GFR) non- AmericanOrdered By: Claudia Ellington on 07-31-2022 GFR/1.73 sq M.predicted among non-blacks MDRD (S/P/Bld) [Vol rate/Area] N/A [facility] Globulin Calc (S) [Mass/Vol] Ordered By: Claduia Ellington on 07-31-2022 Globulin (S) [Mass/Vol] 3.3 g/dL [facility] Glucose mean value [Mass/vol ume] in Blood Estimated from glycated hemoglobinOrdered By: Claudia Ellington on 07-31-2022 Average glucose Estimated from glycated hemoglobin (Bld) [Mass/Vol] 114 mg/dL [facility] Hematocrit Auto (Bld) [Volum e fraction]Ordered By: Claudia Ellington on 07-31-2022 Hematocrit (Bld) [Volume fraction] 38.5 % 36.0-46.0 [facility] Hemoglobin A1c percentageOrd ered By: Claudia Ellington on 07-31-2022 HbA1c (Bld) [Mass fraction] 5.6 % 4.3-5.6 [facility] Comment on above: Increased risk for d iabetes: 5.7 - 6.4diabetes: >6.4glycemic control for adults with diabetes: <7.0 Hemoglobin [Mass/volume] in BloodOrdered By: Claudia Ellington on 07-31-2022 Hemoglobin (Bld) [Mass/Vol] 12.7 g/dL 12.0-16.0 [facility] Iron [Mass/volume] in Serum or PlasmaOrdered By: Claudia Ellington on 07-31-2022 Iron [Mass/Vol] 74 ug/dL 40-150 [facility] Leukocytes [#/volume] correc gamaliel for nucleated erythrocytes in Blood by Automated counOrdered By: Claudia Ellington on 07-31-2022 WBC corrected for nucl RBC Auto (Bld) [#/Vol] 8.3 10*3/uL 4.5-13.5 [facility] Lymphocytes Auto (Bld) [#/Vo l]Ordered By: Claudia Ellington on 07-31-2022 Lymphocytes (Bld) [#/Vol] 2.3 10*3/uL 1.20-4.8 [facility] Lymphocytes/100 WBC Auto (Bl d)Ordered By: Claudia Ellington on 07-31-2022 Lymphocytes/100 WBC (Bld) 27.9 % . [facility] MCH Auto (RBC) [Entitic mass ]Ordered By: Claudia Ellington on 07-31-2022 MCH (RBC) [Entitic mass] 28.4 pg 25.0-35.0 [facility] MCHC Auto (RBC) [Mass/Vol]Or dered By: Claudia Ellington on 07-31-2022 MCHC (RBC) [Mass/Vol] 32.9 g/dL 31.0-37.0 [facility] MCV Auto (RBC) [Entitic vol] Ordered By: Claudia Ellington on 07-31-2022 MCV (RBC) [Entitic vol] 86.6 fL 78-102 [facility] Monocytes Auto (Bld) [#/Vol] Ordered By: Claudia Ellington on 07-31-2022 Monocytes (Bld) [#/Vol] 0.4 10*3/uL 0.1-1.00 [facility] Monocytes/100 WBC Auto (Bld) Ordered By: Claudia Ellington on 07-31-2022 Monocytes/100 WBC (Bld) 5.0 % . [facility] Neutrophils Auto (Bld) [#/Vo l]Ordered By: Claudia Ellington on 07-31-2022 Neutrophils (Bld) [#/Vol] 5.5 10*3/uL 1.2-7.7 [facility] Neutrophils/100 WBC Auto (Bl d)Ordered By: Claudia Ellington on 07-31-2022 Neutrophils/100 WBC (Bld) 66.2 % . [facility] No Panel InformationOrdered By: Claudia Ellington on 07-31-2022 Estimated GFR () N/A [facility] Creatinine Clearance (Chem N/A [facility] Nucleated erythrocytes [Pres ence] in Blood by Automated countOrdered By: Claudia Ellington on 07-31-2022 Nucleated RBC Auto Ql (Bld) 0.1 /100{WBC} 0-0.5 [facility] Platelet mean volume Auto (B ld) [Entitic vol]Ordered By: Claudia Ellington on 07-31-2022 Platelet mean volume (Bld) [Entitic vol] 7.5 fL 6.3-10.7 [facility] Platelets Auto (Bld) [#/Vol] Ordered By: Claudia Ellington on 07-31-2022 Platelets (Bld) [#/Vol] 420 10*3/uL 150-450 [facility] Protein [Mass/volume] in Ser um or PlasmaOrdered By: Claudia Ellington on 07-31-2022 Protein [Mass/Vol] 6.5 g/dL 6.1-7.9 [facility] RBC Auto (Bld) [#/Vol]Ordere d By: Claudia Ellington on 07-31-2022 RBC (Bld) [#/Vol] 4.45 10*6/uL 4.10-5.10 [facility] Serum or plasma alanine lucas otransferase measurement without P-5'-P (enzymatic activiOrdered By: Claudia Ellington on 07-31-2022 ALT No additional P-5'-P [Catalytic activity/Vol] 12 U/L 10-60 [facility] Serum or plasma albumin/glob ulin mass ratioOrdered By: Claudia Ellington on 07-31-2022 Albumin/Globulin [Mass ratio] 1.0 {ratio} [facility] Serum or plasma alkaline rosmery sphatase measurement (enzymatic activity/volume)Ordered By: Claudia Ellington on 07-31-2022 ALP [Catalytic activity/Vol] 49 U/L 32-92 [facility] Serum or plasma anion gap de terminationOrdered By: Claudia Ellington on 07-31-2022 Anion gap [Moles/Vol] 11.2 mmol/L 6.0-15.0 [facility] Serum or plasma aspartate am inotransferase measurement (enzymatic activity/volume)Ordered By: Claudia Ellington on 07-31-2022 AST [Catalytic activity/Vol] 13 U/L 10-42 [facility] Serum or plasma calcium trish urement (mass/volume)Ordered By: Claudia Ellington on 07-31-2022 Calcium [Mass/Vol] 9.2 mg/dL 8.2-10.2 [facility] Serum or plasma chloride klarissa surement (moles/volume)Ordered By: Claudia Ellington on 07-31-2022 Chloride [Moles/Vol] 104 mmol/L 95-114 [facility] Serum or plasma glucose trish urement (mass/volume)Ordered By: Claudia Ellington on 07-31-2022 Glucose [Mass/Vol] 96 mg/dL 70-100 [facility] Comment on above: ADA recommended refe rence rangeRandom Glucose Reference Range is dependent on time and content of last meal. Glucose of more than 200 mg/dL in a nonstressed, ambulatory subject supports the diagnosis of Diabetes Mellitus. Serum or plasma high density lipoprotein (HDL) cholesterol measurementOrdered By: Claudia Ellington on 07-31-2022 Cholesterol in HDL [Mass/Vol] 78 mg/dL 35-85 [facility] Comment on above: HDL CHOL ATP-III CLA SSIFICATION Cardiovascular RiskHDL > or equal to 60 mg/dL LOWHDL < 40 mg/dL HIGH Serum or plasma potassium me asurement (moles/volume)Ordered By: Claudia Ellington on 07-31-2022 Potassium [Moles/Vol] 4.0 mmol/L 3.5-5.1 [facility] Serum or plasma sodium measu rement (moles/volume)Ordered By: Claudia Ellington on 07-31-2022 Sodium [Moles/Vol] 137 mmol/L 138-145 [facility] Serum or plasma total biliru bin measurement (mass/volume)Ordered By: Claudia Ellington on 07-31-2022 Bilirubin [Mass/Vol] 0.5 mg/dL 0.3-1.2 [facility] Serum or plasma total carbon dioxide measurement (moles/volume)Ordered By: Claudia Ellington on 07-31-2022 CO2 [Moles/Vol] 25.8 mmol/L 22.0-30.0 [facility] Serum or plasma total choles terol/high density lipoprotein (HDL) cholesterol mass ratOrdered By: Claudia Ellington on 07-31-2022 Cholesterol.total/Chol esterol in HDL [Mass ratio] 3.4 {ratio} <5.0 [facility] Serum or plasma urea nitroge n measurement (mass/volume)Ordered By: Claudia Ellington on 07-31-2022 Urea nitrogen [Mass/Vol] 18 mg/dL 9-23 [facility] TSH DL <= 0.005 mIU/L QnOrde red By: Claudia Ellington on 07-31-2022 TSH Qn 3.47 m[IU]/L 0.45-5.33 [facility] Thyroxine (T4) free [Mass/vo lume] in Serum or PlasmaOrdered By: Claudia Ellington on 07-31-2022 Free T4 [Mass/Vol] 1.03 ng/dL 0.61-1.12 [facility] Triglyceride [Mass/volume] i n Serum or PlasmaOrdered By: Claudia Ellington on 07-31-2022 Triglyceride [Mass/Vol] 89 mg/dL 35-149 [facility] Comment on above: TRIG ATP III CLASSIF ICATIONTRIG less than 150 mg/dL NormalTRIG 150-199 mg/dL Borderline highTRIG 200-500 mg/dL High TRIG greater than 500 mg/dL Very highStandard traceable to the Center for Disease Conrtrol and Prevention (CDC) test method. WBC Auto (Bld) [#/Vol]Ordere d By: Claudia Ellington on 07-31-2022 WBC (Bld) [#/Vol] 8.3 10*3/uL 4.5-13.5 [facility] Covid-19 PCR (CVDTBH)on 07-04 SARS-CoV-2 (COVID-19) RNA CHRISTIAN+probe Ql (Unsp spec) Not detected Normal NOT DETECTED [facility] Comment on above: Result Comment: When [...] for this test is supported by the [place] of Health and Human Service's declaration that [...] used). Performed By: #### C VDTBH #### [facility] [address] [place] [address] Dr. Tara Jackson INFLUENZA A AND B AGon 07-23 INFLUENZA A AG Negative Normal NEGATIVE SEE COMMENT [facility] Comment on above: Performed By: #### I NFLUAB #### [facility] [address] [place] [address] Dr. Tara Jackson INFLUENZA B AG Negative Normal NEGATIVE SEE COMMENT [facility] Comment on above: Performed By: #### I NFLUAB #### [facility] [address] [place] [address] Dr. Tara Jackson INTERNAL CONTROLS Within Normal Limits Normal Wi thin Normal Limits [facility] Comment on above: Performed By: #### I NFLUAB #### [facility] [address] [place] [address] Dr. Tara Jackson RSVon 07-23-2022 RSV AG Negative Normal NEGATIVE [facility] Comment on above: Performed By: #### R SV #### [facility] [address] [address] [address] Tara Jackson CHEMISTRYOrdered By: SYSTEM SYSTEM [...] 10 - 20 [facility] Covid-19 PCR ([facility])on SARS-CoV-2 (COVID-19) RNA CHRISTIAN+probe Ql (Unsp spec) Not detected Normal NOT DETECTED [facility] Comment on above: Result Comment: This test is not yet approved or cleared by the [place] FDA. When there are no FDA-approved or cleared tests available, and other criteria are met, FDA can make tests available under an emergency access mechanism called an Emergency Use Authorization (EUA). The EUA for this test is supported by the [place] of Health and Human Service's (HHS's) declaration [...] consistent with SARS-CoV-2. Performed By: #### C [facility] #### [facility] [address] [place] [address] Dr. Tara Jackson HEMATOLOGYOrdered By: SYSTEM SYSTEM [...] 8.7 E9/L Normal 4.0 - 10.5 E9/L [facility] HemeAutoSS INFLUENZA A AND B AGon 07-08 INFLUANE SEE BELOW Normal [facility] Comment on above: Result Comment: Nega tive for Flu A protein angiten. Infection due to Flu A cannot be ruled out. Flu A angiten in the sample may be below the detection limit of the test. Performed By: #### I NFLUAB #### [facility] [address] [place] [address] Dr. [facility] Normal [facility] Comment on above: Result Comment: Nega tive for Flu B protein antigen. Infection due to Flu B cannot be ruled out. Flu B antigen in the sample may be below the detection limit of the test. Performed By: #### I NFLUAB #### [facility] [address] [place] [address] Dr. Tara Jackson INFLUENZA A AG Negative Normal NEGATIVE SEE COMMENT [facility] Comment on above: Performed By: #### I NFLUAB #### [facility] [address] [place] [address] Dr. Tara Jackson INFLUENZA B AG Negative Normal NEGATIVE SEE COMMENT [facility] Comment on above: Performed By: #### I NFLUAB #### [facility] [address] [address] [address] Tara Jackson INTERNAL CONTROLS Within Normal Limits Normal Wi thin Normal Limits [facility] Comment on above: Performed By: #### I NFLUAB #### [facility] [address] [address] [address] Tara Jackson MICRO OTHER TESTSOrdered By: Chuck Jackson on 07-08-2022 S. pyogenes Ag IA.rapid Ql (Throat) Negative (07/08/22 8:55 PM) Normal Negative [facility] Sero SEROLOGYOrdered By: Chuck harrison on 07-08-2022 HCG.beta subunit (U) [Moles/Vol] Negative Normal [facility] URINALYSISOrdered By: Chuck hall on [...] PM) Normal Negative [facility] UA Auto SS Hagan.plasma/Hagan .RBC (Bld) [Mass ratio] 0-3 /HPF Normal 0-3/HPF [facility] UA Auto SS Nitrite Ql (U) Negative (07/08/22 8:50 PM) Normal Negative [facility] UA Auto SS pH (U) 6.5 *NA* (07/08/22 8:50 PM) Invalid Interpretation Code 5.0 - 9.0 [facility] UA Auto SS Protein (U) [Mass/Vol] Negative (07/08/22 8:50 PM) Normal Negative [facility] UA Auto SS Specific gravity (U) [Rel density] 1.015 *NA* (07/08/22 8:50 PM) Invalid Interpretation Code 1.005 - 1.030 [facility] UA Auto SS UA Spec Desc Clean Catch (07/08/22 8:50 PM) Normal [facility] UA Auto SS Urobilinogen Qn (U) 0.3234669 {Ed'U}/dL Normal 0.0 - 1.0 EU/dL [facility] UA Auto SS WBC Auto Ql (U) Negative (07/08/22 8:50 PM) Normal Negative [facility] UA Auto SS WBC LM.HPF (Urine sed) [#/Area] 0-5 /HPF Normal 0-5/HPF [facility] UA Auto SS CHEMISTRYOrdered By: SYSTEM SYSTEM [...] 0.6 mg/dL Normal 0.5 - 1.3 mg/dL [facility] Glucose [Mass/Vol] 96 mg/dL Normal 55 - 199 mg/dL [facility] Potassium [Moles/Vol] 4.0 mmol/L Normal 3.5 - 5.3 mmol/L [facility] Sodium [Moles/Vol] 132 mmol/L Low 135 - 145 mmol/L [facility] Urea nitrogen [Mass/Vol] 14 mg/dL Normal 5 - 21 mg/dL [facility] Urea nitrogen/Creatinine [Mass ratio] 23 mg/mg High 10 - 20 [facility] CHEMISTRYOrdered By: Lab ROP User on 07-02-2022 Glucose [Mass/Vol] 100 mg/dL High 55 - 99 mg/dL [facility] POC Subsection Comment on above: Result Comment: Shanique percy Meter POC Device SN [id number] Invalid Interpretation Code [facility] POC Subsection POC User ID [id number] Invalid Interpretation Code [facility] POC Subsection POC Username CAL NOLASCO Invalid Interpretation Code [facility] POC Subsection HEMATOLOGYOrdered By: SYSTEM SYSTEM on [...] 35.7 g/dL Normal 32.0 - 36.0 gm/dL [facility] HemeAutoSS MCV (RBC) [Entitic vol] 82.4 fL Normal 78.0 - 95.0 fL [facility] HemeAutoSS Platelet mean volume (Bld) [Entitic vol] 7.1 fL Normal 6.0 - 9.5 fL [facility] HemeAutoSS Platelets (Bld) [#/Vol] 303.0 E9/L Normal 150.0 - 450.0 E9/L [facility] HemeAutoSS RBC (Bld) [#/Vol] 4.3 E12/L Normal 4.1 - 5.3 E12/L [facility] HemeAutoSS WBC corrected for nucl RBC Auto (Bld) [#/Vol] 11.5 E9/L High 4.0 - 10.5 E9/L [facility] HemeAutoSS INFLUENZA A AND B AGon 06-25 [facility] SEE BELOW Normal [facility] Comment on above: Result Comment: Nega tive for Flu A protein angiten. Infection due to Flu A cannot be ruled out. Flu A angiten in the sample may be below the detection limit of the test. Performed By: #### C VDTBH #### [facility] [address] [place] [address] Dr. Tara Jackson [facility] SEE BELOW Normal [facility] Comment on above: Result Comment: Nega tive for Flu B protein antigen. Infection due to Flu B cannot be ruled out. Flu B antigen in the sample may be below the detection limit of the test. Performed By: #### C VDTBH #### [facility] [address] [place] [address] Dr. Tara Jackson INFLUENZA A AG Negative Normal NEGATIVE SEE COMMENT [facility] Comment on above: Performed By: #### C VDTBH #### [facility] [address] [place] [address] Dr. Tara Jackson INFLUENZA B AG Negative Normal NEGATIVE SEE COMMENT [facility] Comment on above: Performed By: #### C VDTBH #### [facility] [address] [place] [address] Dr. Tara Jackson INTERNAL CONTROLS Within Normal Limits Normal Wi thin Normal Limits [facility] Comment on above: Performed By: #### C VDTBH #### [facility] [address] [place] [address] Dr. Tara Jackson Covid-19 PCR (CVDTB)on 06-03 SARS-CoV-2 (COVID-19) RNA CHRISTIAN+probe Ql (Unsp spec) Not detected Normal NOT DETECTED [facility] Comment on above: Result Comment: This test is not yet approved or cleared by the [place] FDA. When there are no FDA-approved or cleared tests available, and other criteria are met, FDA can make tests available under an emergency access mechanism called an Emergency Use Authorization (EUA). The EUA for this test is supported by the [place] of Health and Human Service's (HHS's) declaration [...] SARS-CoV-2. Performed By: #### I NFLUAB #### [facility] [address] [place] [address] Dr. Tara Jackson Covid-19 PCR (CVDTB)on 05-04 SARS-CoV-2 (COVID-19) RNA CHRISTIAN+probe Ql (Unsp spec) Not detected Normal NOT DETECTED [facility] Comment on above: Result Comment: This test is not yet approved or cleared by the [place] FDA. When there are no FDA-approved or cleared tests available, and other criteria are met, FDA can make tests available under an emergency access mechanism called an Emergency Use Authorization (EUA). The EUA for this test is supported by the [place] of Health and Human Service's (HHS's) declaration [...] SARS-CoV-2. Performed By: #### I NFLUAB #### [facility] [address] [place] [address] Dr. Tara Jackson AMYLASEon 04-26-2022 Amylase [Catalytic activity/Vol] 17 U/L Critically low 25-115 [facility] Comment on above: Performed By: #### I NFLUAB #### [facility] [address] [place] [address] Dr. Tara Jackson CBC AUTO DIFFon 04-26-2022 BASO # 0.0 103/ul Normal 0.0-0.1 [facility] Comment on above: Performed By: #### C VDTBH #### [facility] [address] [place] [address] Dr. Tara Jackson Basophils/100 WBC (Bld) 0.7 % Normal 0.2-2.0 [facility] Comment on above: Performed By: #### C VDTBH #### [facility] [address] [place] [address] Dr. Tara Jackson EO # 0.3 103/ul Normal 0.0-0.7 [facility] Comment on above: Performed By: #### C VDTBH #### [facility] [address] [place] [address] Dr. Tara Jackson Eosinophils/100 WBC (Bld) 5.1 % Normal 0.9-7.0 [facility] Comment on above: Performed By: #### C VDTBH #### [facility] [address] [place] [address] Dr. Tara Jackson Erythrocyte distribution width (RBC) [Ratio] 13.5 % Normal 11.0-15.0 [facility] Comment on above: Performed By: #### C VDTBH #### [facility] [address] [place] [address] Dr. Tara Jackson Hematocrit (Bld) [Volume fraction] 37.9 % Normal 36.0-48.0 [facility] Comment on above: Performed By: #### C VDTBH #### [facility] [address] [place] [address] Dr. Tara Jackson Hemoglobin (Bld) [Mass/Vol] 12.4 g/dL Normal 12.0-16.0 [facility] Comment on above: Performed By: #### C VDTBH #### [facility] [address] [place] [address] Dr. Tara Jackson IG # 0.01 10e3/ul Normal 0.00-0.03 [facility] Comment on above: Performed By: #### C VDTBH #### [facility] [address] [place] [address] Dr. Tara Jackson IG % 0.2 % Normal 0.0-0.5 [facility] Comment on above: Performed By: #### C VDTBH #### [facility] [address] [place] [address] Dr. Tara Jackson LYMPH # 1.6 103/ul Normal 1.2-3.8 [facility] Comment on above: Performed By: #### C VDTBH #### [facility] [address] [place] [address] Dr. Tara Jackson Lymphocytes/100 WBC (Bld) 28.8 % Normal 20.5-60.0 [facility] Comment on above: Performed By: #### C VDTBH #### [facility] [address] [place] [address] Dr. Tara Jackson MANUAL DIFF REQ NO Normal [facility] Comment on above: Performed By: #### C VDTBH #### [facility] [address] [place] [address] Dr. Tara Jackson MCH (RBC) [Entitic mass] 28.1 pg Normal 26.7-34.0 [facility] Comment on above: Performed By: #### C VDTBH #### [facility] [address] [place] [address] Dr. Tara Jackson MCHC (RBC) [Mass/Vol] 32.7 g/dL Normal 29.9-35.2 [facility] Comment on above: Performed By: #### C VDTBH #### [facility] [address] [place] [address] Dr. Tara Jackson MCV (RBC) [Entitic vol] 85.7 fL Normal 79.1-95.6 [facility] Comment on above: Performed By: #### C VDTBH #### [facility] [address] [place] [address] Dr. Tara Jackson MONO # 0.3 103/ul Normal 0.3-0.8 [facility] Comment on above: Performed By: #### C VDTBH #### [facility] [address] [place] [address] Dr. Tara Jackson Monocytes/100 WBC (Bld) 6.2 % Normal 1.7-12.0 [facility] Comment on above: Performed By: #### C VDTBH #### [facility] [address] [place] [address] Dr. Tara Jackson NEUT # 3.2 103/ul Normal 1.4-6.5 [facility] Comment on above: Performed By: #### C VDTBH #### [facility] [address] [place] [address] Dr. Tara Jackson Neutrophils/100 WBC (Bld) 59.0 % Normal 43.0-75.0 [facility] Comment on above: Performed By: #### C VDTBH #### [facility] [address] [place] [address] Dr. Tara Jackson Platelet mean volume (Bld) [Entitic vol] 9.7 fL Normal 9.5-13.5 [facility] Comment on above: Performed By: #### C VDTBH #### [facility] [address] [place] [address] Dr. Tara Jackson PLT 382 103/ul Normal 150-450 [facility] Comment on above: Performed By: #### C VDTBH #### [facility] [address] [place] [address] Dr. Tara Jackson RBC 4.42 106/ul Normal 3.40-5.30 [facility] Comment on above: Performed By: #### C VDTBH #### [facility] [address] [place] [address] Dr. Tara Jackson WBC 5.5 103/ul Normal 4.0-11.0 [facility] Comment on above: Performed By: #### C VDTBH #### [facility] [address] [place] [address] Dr. Tara Jackson IRONon 04-26-2022 Iron [Mass/Vol] 55.0 ug/dL Normal 50.0-170.0 [facility] Comment on above: Performed By: #### C VDTBH #### [facility] [address] [place] [address] Dr. Tara Jackson LIPASEon 04-26-2022 Lipase [Catalytic activity/Vol] 191.0 U/L Normal 73.0-393.0 [facility] Comment on above: Performed By: #### I NFLUAB #### [facility] [address] [place] [address] Dr. Tara Jackson PREG QUANT HCGon 04-26-2022 HCG QUANT <1 Normal [facility] Comment on above: Performed By: #### I NFLUAB #### [facility] [address] [place] [address] Dr. Tara Jackson HCG RANGE SEE BELOW Normal [facility] Comment on above: Result Comment: 5-50 0.2-1 WEEK 50-500 1-2 WEEKS 100-5,000 2-3 WEEKS 500-10,000 3-4 WEEKS 1,000-50,000 4-5 WEEKS 10,000-100,000 5-6 WEEKS 15,000-200,000 6-8 WEEKS 10,000-100,000 2-3 MONTHS Performed By: #### I NFLUAB #### [facility] [address] [place] [address] Dr. Tara Jackson PROF 14(COMP METB)on 022 Albumin [Mass/Vol] 3.0 g/dL Critically low 3.4-5.0 [facility] Comment on above: Performed By: #### I NFLUAB #### [facility] [address] [place] [address] Dr. Tara Jackson Albumin/Globulin [Mass ratio] 0.7 {ratio} Normal [facility] Comment on above: Performed By: #### I NFLUAB #### [facility] [address] [place] [address] Dr. Tara Jackson ALP [Catalytic activity/Vol] 58 U/L Critically low 65-260 [facility] Comment on above: Performed By: #### I NFLUAB #### [facility] [address] [place] [address] Dr. Tara Jackson ALT [Catalytic activity/Vol] 19 U/L Normal 14-59 [facility] Comment on above: Performed By: #### I NFLUAB #### [facility] [address] [place] [address] Dr. Tara Jackson Anion gap [Moles/Vol] 11.1 mmol/L Normal [facility] Comment on above: Performed By: #### I NFLUAB #### [facility] [address] [place] [address] Dr. Tara Jackson AST [Catalytic activity/Vol] 13 U/L Critically low 15-37 [facility] Comment on above: Performed By: #### I NFLUAB #### [facility] [address] [place] [address] Dr. Tara Jackson Bilirubin [Mass/Vol] 0.3 mg/dL Normal 0.2-1.0 [facility] Comment on above: Performed By: #### I NFLUAB #### [facility] [address] [place] [address] Dr. Tara Jackson Calcium [Mass/Vol] 8.7 mg/dL Normal 8.5-10.1 [facility] Comment on above: Performed By: #### I NFLUAB #### [facility] [address] [place] [address] Dr. Tara Jackson Chloride [Moles/Vol] 103 mmol/L Normal 98-107 [facility] Comment on above: Performed By: #### I NFLUAB #### [facility] [address] [address] [address] Tara Jackson CO2 [Moles/Vol] 25.0 mmol/L Normal 21.0-32.0 [facility] Comment on above: Performed By: #### I NFLUAB #### [facility] [address] [place] [address] Dr. Tara Jackson Creatinine [Mass/Vol] 0.88 mg/dL Normal 0.55-1.02 [facility] Comment on above: Performed By: #### I NFLUAB #### [facility] [address] [place] [address] Dr. Tara Jackson Globulin (S) [Mass/Vol] 4.6 g/dL Normal [facility] Comment on above: Performed By: #### I NFLUAB #### [facility] [address] [place] [address] Dr. Tara Jackson Glucose [Mass/Vol] 91 mg/dL Normal 74-106 [facility] Comment on above: Performed By: #### I NFLUAB #### [facility] [address] [place] [address] Dr. Tara Jackson Potassium [Moles/Vol] 4.1 mmol/L Normal 3.5-5.1 [facility] Comment on above: Performed By: #### I NFLUAB #### [facility] [address] [place] [address] Dr. Tara Jackson Protein [Mass/Vol] 7.6 g/dL Normal 6.4-8.2 [facility] Comment on above: Performed By: #### I NFLUAB #### [facility] [address] [place] [address] Dr. Tara Jackson Sodium [Moles/Vol] 135 mmol/L Critically low 136-145 [facility] Comment on above: Performed By: #### I NFLUAB #### [facility] [address] [place] [address] Dr. Tara Jackson Urea nitrogen [Mass/Vol] 9.0 mg/dL Normal 6.4-19.3 [facility] Comment on above: Performed By: #### I NFLUAB #### [facility] [address] [address] [address] Tara Jackson Urea nitrogen/Creatinine [Mass ratio] 10.2 mg/mg Normal [facility] Comment on above: Performed By: #### I NFLUAB #### [facility] [id number] Tara Jackson CHEMISTRYOrdered By: SYSTEM SYSTEM on 04-04-2022 Cholesterol [Mass/Vol] 210 mg/dL High 120 - 200 mg/dL [facility]isol Cholesterol in HDL [Mass/Vol] 45 mg/dL Invalid Interpretation Code [facility] Cholesterol in LDL [Mass/Vol] 159 mg/dL High <=129mg/dL [facility] Cholesterol in VLDL [Mass/Vol] 20 mg/dL Normal 7 - 40 mg/dL [facility] Glucose post fast [Mass/Vol] 100 mg/dL High 55 - 99 mg/dL [facility] Triglyceride [Mass/Vol] 101 mg/dL Normal <=149mg/dL [facility] CHEMISTRYOrdered By: Valeriy Rivas on 04-04-2022 HbA1c (Bld) [Mass fraction] 5.3 % Normal <=5.9% [facility] Covid-19 PCR (CVDTBH)on 03-03 SARS-CoV-2 (COVID-19) RNA CHRISTIAN+probe Ql (Unsp spec) Not detected Normal NOT DETECTED [facility] Comment on above: Result Comment: This test is not yet approved or cleared by the [place] FDA. When there are no FDA-approved or cleared tests available, and other criteria are met, FDA can make tests available under an emergency access mechanism called an Emergency Use Authorization (EUA). The EUA for this test is supported by the [place] of Health and Human Service's (HHS's) declaration [...] SARS-CoV-2. Performed By: #### I NFLUAB #### [facility] [address] [place], [place] [address] Dr. Tara Jackson Covid-19 PCR (CVDTBH)on SARS-CoV-2 (COVID-19) RNA CHRISTIAN+probe Ql (Unsp spec) Not detected Normal NOT DETECTED [facility] Comment on above: Result Comment: This test is not yet approved or cleared by the [place] FDA. When there are no FDA-approved or cleared tests available, and other criteria are met, FDA can make tests available under an emergency access mechanism called an Emergency Use Authorization (EUA). The EUA for this test is supported by the [place] of Health and Human Service's (HHS's) declaration [...] SARS-CoV-2. Performed By: #### I NFLUAB #### [facility] [address] [place], [place] [address] Dr. Tara Jackson Covid-19 PCR (CVDTBH)on 01-01 SARS-CoV-2 (COVID-19) RNA CHRISTIAN+probe Ql (Unsp spec) Not detected Normal NOT DETECTED [facility] Comment on above: Result Comment: This test is not yet approved or cleared by the [place] FDA. When there are no FDA-approved or cleared tests available, and other criteria are met, FDA can make tests available under an emergency access mechanism called an Emergency Use Authorization (EUA). The EUA for this test is supported by the [place] of Health and Human Service's (HHS's) declaration [...] SARS-CoV-2. Performed By: #### I NFLUAB #### [facility] [address] [place] [address] Dr. Tara Jackson SYMPTOMATIC COVID-19 ANTIGEN on 01-17-2022 EUA Statement SEE BELOW Normal [facility] Comment on above: Result Comment: [...] sooner. Performed By: #### C VDAGS #### [facility] [address] [place] [address] Dr. Tara Jackson SARS-CoV-2 (COVID-19) RNA CHRISTIAN+probe Ql (Unsp spec) Negative Normal NEGATIVE [facility] Comment on above: Performed By: #### C VDAGS #### [facility] [address] [address] [address] Tara Jackson CHEMISTRYOrdered By: SYSTEM SYSTEM [...] 0.5 E9/L Normal 0.0 - 1.0 E9/L [facility] Neutrophils/100 WBC (Bld) 64.7 % Normal 36.0 - 75.0 % [facility] Neutrophils/Leukocytes Auto (Bld) [Pure # fraction] 4.2 E9/L Normal 1.3 - 6.0 E9/L [facility] HEMATOLOGYOrdered By: Mirella Partida on 12-04-2021 Erythrocyte distribution width (RBC) [Ratio] 13.2 % Normal 11.5 - 14.0 % [facility] Hematocrit (Bld) [Volume fraction] 37.8 % Normal 36.0 - 47.0 % [facility] Hemoglobin (Bld) [Mass/Vol] 12.7 g/dL Normal 12.0 - 15.0 gm/dL [facility] MCH (RBC) [Entitic mass] 28.9 pg Normal 26.0 - 32.0 pg FT [facility] MCHC (RBC) [Mass/Vol] 33.5 g/dL Normal 32.0 - 36.0 gm/dL [facility] MCV (RBC) [Entitic vol] 86.3 fL Normal 78.0 - 95.0 fL [facility] Platelet mean volume (Bld) [Entitic vol] 7.7 fL Normal 6.0 - 9.5 fL [facility] HemeAutoSS Platelets (Bld) [#/Vol] 382.0 E9/L Normal 150.0 - 450.0 E9/L [facility] RBC (Bld) [#/Vol] 4.4 E12/L Normal 4.1 - 5.3 E12/L [facility] WBC corrected for nucl RBC Auto (Bld) [#/Vol] 6.5 E9/L Normal 4.0 - 10.5 E9/L [facility] MICRO OTHER TESTSOrdered By: Debby Cleveland on 12-04-2021 Rapid COV Int NEG Ctl Pass (12/04/21 11:18 PM) Normal [facility] Man Sero Rapid COV Int POS Ctl Pass (12/04/21 11:18 PM) Normal [facility] Man Sero SARS-CoV+SARS-CoV-2 (COVID-19) Ag IA.rapid Ql (Resp) Not Detected (12/04/21 11:18 PM) Normal Not Detected [facility] Man Sero SEROLOGYOrdered By: Debby Cleveland on 12-04-2021 Beta hCG Ql Negative (12/04/21 6:06 PM) Normal [facility] Peds Pulmonary Medicine- Off ice [...] only phone number listed in the computer ([phone]) went straight to the mother's voicemail and it was not taking messages. Called back and requested to call another number - [phone] Today (10/24/2019) I did a telephone conference [...] update: no changes 1 Refills: yes Pharmacy: [facility] in [place] PCP: same 1 Amended By: Martina Bedolla; [...] moderate persistent; YANNA = N; Sent To: [facility] Asthma, moderate persistent, Chronic cough Renew: Cetirizine HCl - 10 MG Oral Tablet; TAKE 1 TABLET BY MOUTH DAILY Rx By: Martina Bedolla; Dispense: 0 Days ; #:1 X 30 Tablet Bottle; Refill: 3; For: Asthma, moderate persistent, Chronic cough; YANNA = N; Sent To: [facility] Non-allergic rhinitis Renew: Fluticasone Propionate 50 MCG/ACT Nasal Suspension; USE 2 SPRAYS IN EACH NOSTRIL ONCE DAILY Rx By: Martina Bedolla; Dispense: 0 Days ; #:1 X 16 GM Bottle; Refill: 6; For: Non-allergic rhinitis; YANNA = N; Sent To: [facility] Signatures Electronically signed by : Martina Bedolla DO; Oct 26 2019 3:32PM EST (Author) Normal [facility]- Off ice Visiton 06-02-2019 [...] or you have questions about the plan ([phone]). Please call us if you are having [...] Behavior appropriate for age. Results/Data Asthma Action [id number] 01:32PMDMartina Sepulveda Test NameResultFlagReference See Scanned DocumetSee Scanned Document Summary / No summary entered : No summary entered Documents attached : Ervinmd Action Plan - Martina Bedolla; Enc: [id number] - Appointment - Martina Bedolla - (Pediatric Pulmonology) (Result Document) Spirometry loops personally reviewed. Test done today shows: rejected Orders Asthma, moderate persistent Renew: Dulera 200-5 MCG/ACT Inhalation Aerosol; Inhale 2 puffs twice daily with a spacer Rx By: Martina Bedolla; Dispense: 0 Days ; #:1 X 13 GM Inhaler; Refill: 6;For: Asthma, moderate persistent; YANNA = N; Verified Transmission to [facility]; Last Updated By: [employer]; 05/30/2019 3:29:40 PM Renew: Ventolin HFA 108 (90 Base) MCG/ACT Inhalation Aerosol Solution; Inhale 2-4 puffs every 4-6 hours as needed for cough, wheezing and shortness of breath and prior to exercise Rx By: Martina Bedolla; Dispense: 0 Days ; #:1 X 18 GM Inhaler; Refill: 6;For: Asthma, moderate persistent; YANNA = N; Verified Transmission to [facility]; Last Updated By: [employer]; 05/30/2019 3:29:35 PM Attending Note Attestation: Comments/Additional [...] Jun 01 2019 11:38PM EST (Author) Normal [facility]- Off ice Visiton 02-13-2019 [...] or you have questions about the plan ([phone]). Please call us if you are having [...] history update: no changes Refills: none Pharmacy: [facility] PCP: Rakel Active Problems Allergic rhinitis (477.9) [...] Plan; Status:Complete; Done: 26Jan2019 02:00PM Performed:In Office; Due:[id number]; Last Updated By:Monica Rowan; 01/26/2019 2:00:50 PM;Ordered; [...] Feb 13 2019 6:39PM EST (Author) Normal [facility]- Off ice Visiton 11-24-2018 [...] update: not doing track this season. Refills: Dulera Pharmacy: same PCP: Dr. Ellington Flu vaccine?: [...] persistent; YANNA = N; Verified Transmission to [facility] #[id number]; Last Updated By: Duarte Orta; 01/25/2018 2:29:37 [...] SPRAYS IN EACH NOSTRIL ONCE DAILY; Therapy: [id number] to (Last Rx:02Sep2018) Requested for: 02Sep2018 Ordered Rx By: Martina Bedolla; Dispense: 0 Days ; #:1 X 16 GM Bottle; Refill: 5;For: Non-allergic rhinitis; YANNA = N; Print Rx Ibuprofen 800 MG Oral Tablet; Therapy: 26Jan2018 to Recorded Dispense: 20 Days ; #:60; Refill: 0; YANNA = N; Record; Last Updated By: Arminda Linda; 03/18/2018 2:27:47 PM 08/22 1-20 MG-MCG Oral Tablet; Therapy: [id number] to Recorded Dispense: 28 Days ; #:28; Refill: 0; YANNA = N; Record; Last Updated By: Arminda Linda; 03/18/2018 2:27:47 PM QUEtiapine Fumarate 200 MG Oral Tablet; TAKE 1 TABLET EVERY DAY AT BEDTIME; Therapy: [id number] to Recorded Rx By: PAZ; Dispense: 30 Days ; #:30; Refill: 0; YANNA = N; Record; Last Updated By: Martina Bedolla; 01/25/2018 2:11:18 PM Vitals Vital Signs Recorded: 29Oct2018 09:33AM Heart Rate78 Mytwfvepyxc60 Tdsngasl016 Upphibwow29 Pzxvpi833 cm 2-20 Stature Jheavyrdfr27 % Orzfox85 kg 2-20 Weight Suxbztuayq19 % BMI Cccotymlap15.84 BMI Gxxqkonnov54 % BSA Calculated1.71 O2 Ejujwgzurg54 Physical Exam Constitutional: awake, alert and cooperative. [...] persistent; YANNA = N; Verified Transmission to [id number]; Last Updated By: [employer]; 10/29/2018 1:37:58 PM Provider Impressions Asthma Severity: [...] or you have questions about the plan ([phone]). Please call us if you are having [...] date of service which is 10/29/2018. Normal [facility] Vital Signs Date Time Vital Sign Value Performing Clinician Facility 02-09-2024 14:30-0400 Blood Pressure Location Radha Cantor [facility] 02-09-2024 14:30-0400 bodymassindex 2.26 kg/m2 Radha Cantor [facility] Comment on above: Result Comment: ^~:!ZScore Source -[facility] 02-09-2024 14:30-0400 Diastolic blood pressure 80 mm[Hg] Radha Cantor [facility] 02-09-2024 14:30-0400 Heart rate 92 /min Radha Cantor [facility] 02-09-2024 14:30-0400 Height/Length Percentile 60.56 1 Radha Cantor [facility] Comment on above: Result Comment: ^~:!Percentile Source -[facility] 02-09-2024 14:30-0400 Height/Length Z-Score 0.27 1 Radha Cantor [facility] Comment on above: Result Comment: ^~:!ZScore [facility] 02-09-2024 14:30-0400 Systolic blood pressure 110 mm[Hg] Radha Cantor [facility] [place] 02-09-2024 14:30-0400 Weight Percentile 99.39 % Radha Cantor [facility] Comment on above: Result Comment: ^~:!Percentile Source -[facility] 02-09-2024 14:30-0400 Weight Z-Score 2.51 1 Radha Cantor [facility] Comment on above: Result Comment: ^~:!ZScore [facility] 01-22-2024 09:44-0400 Blood Pressure Location [employer]c [employer]ashleyfrank Simonli [facility] 01-22-2024 09:44-0400 bodymassindex 2.28 kg/m2 VLinks [employer]frank [employer] [facility] Comment on above: Result Comment: ^~:!ZScore [facility] 01-22-2024 09:44-0400 Diastolic blood pressure 78 mm[Hg] Edgargray Vizcainouchli [facility] 01-22-2024 09:44-0400 Heart rate 94 /min Mohamafrank Mouchli [facility] 01-22-2024 09:44-0400 Height/Length Percentile 60.60 1 VLinks Mediad Mouchli [facility] Comment on above: Result Comment: ^~:!Percentile Source -[facility] 01-22-2024 09:44-0400 Height/Length Z-Score 0.27 1 Alc Holdingsgray Mouchli [facility] Comment on above: Result Comment: ^~:!ZScore [facility] 01-22-2024 09:44-0400 Respiratory rate 16 /min Ritud Mouchli [facility] 01-22-2024 09:44-0400 Systolic blood pressure 111 mm[Hg] Mohashleyd Mouchli [facility] 01-22-2024 09:44-0400 Weight Percentile 99.42 % [employer] Holdingsashleyd Mouchli [facility] Comment on above: Result Comment: ^~:!Percentile [facility] 01-22-2024 09:44-0400 Weight Z-Score 2.52 1 [employer]gray Simonli [facility] Comment on above: [facility] 21:06-0400 Body temperature 98.06 [degF] [facility] 01-13-2024 21:06-0400 Diastolic blood pressure 93 mm[Hg] [facility] 01-13-2024 21:06-0400 Heart rate 71 /min [facility] 01-13-2024 21:06-0400 Mean blood pressure 105 mm[Hg] [facility] 01-13-2024 21:06-0400 Respiratory rate 18 /min [facility] 01-13-2024 21:06-0400 SaO2% (BldA) [Mass fraction] 96 % [facility] 01-13-2024 21:06-0400 Systolic blood pressure 130 mm[Hg] [facility] 01-13-2024 20:40-0400 Diastolic blood pressure 90 mm[Hg] [facility] 01-13-2024 20:40-0400 Heart rate 74 /min [facility] 01-13-2024 20:40-0400 Mean blood pressure 112 mm[Hg] [facility] 01-13-2024 20:40-0400 Systolic blood pressure 156 mm[Hg] [facility] 01-13-2024 19:43-0400 Diastolic blood pressure 84 mm[Hg] [facility] 01-13-2024 19:43-0400 Heart rate 76 /min [facility] 01-13-2024 19:43-0400 Mean blood pressure 100 mm[Hg] [facility] 01-13-2024 19:43-0400 Respiratory rate 18 /min [facility] 01-13-2024 19:43-0400 SaO2% (BldA) [Mass fraction] 97 % [facility] 01-13-2024 19:43-0400 Systolic blood pressure 131 mm[Hg] [facility] 01-13-2024 19:01-0400 Respiratory rate 16 /min [facility] 01-13-2024 19:01-0400 SaO2% (BldA) [Mass fraction] 97 % [facility] 01-13-2024 18:29-0400 Body temperature 98.42 [degF] [facility] 01-13-2024 18:29-0400 bodymassindex 2.3 kg/m2 [facility] Comment on above: Result Comment: ^~:!ZScore Source -[facility] 01-13-2024 18:29-0400 Heart rate 75 /min [facility] 01-13-2024 18:29-0400 Height/Length Percentile 61.[address] [facility] Comment on above: Result Comment: ^~:!Percentile Source -[facility] 01-13-2024 18:29-0400 Height/Length Z-Score 0.28 1 [facility] Comment on above: Result Comment: ^~:!ZScore [facility] 01-13-2024 18:29-0400 Weight Percentile 99.46 % [facility] Comment on above: Result Comment: ^~:!Percentile [facility] 01-13-2024 18:29-0400 Weight Z-Score 2.[address] [facility] Comment on above: Result Comment: ^~:!ZScore [facility] 01-12-2024 17:20-0400 Diastolic blood pressure 91 mm[Hg] Radah Chaparroe [facility] 01-12-2024 17:20-0400 Heart rate 74 /min Radha Chaparroe [facility] 01-12-2024 17:20-0400 Mean blood pressure 108 mm[Hg] Radha Sole [facility] 01-12-2024 17:20-0400 Respiratory rate 16 /min Radha Sole [facility] 01-12-2024 17:20-0400 SaO2% (BldA) [Mass fraction] 100 % Radha Sole [facility] 01-12-2024 17:20-0400 Systolic blood pressure 143 mm[Hg] Radha Sole [facility] 01-12-2024 16:59-0400 Blood Pressure Location Radha Sole [facility] 01-12-2024 16:59-0400 Diastolic blood pressure 91 mm[Hg] Radha Sole [facility] 01-12-2024 16:59-0400 Heart rate 82 /min Radha Sole [facility] 01-12-2024 16:59-0400 Mean blood pressure 108 mm[Hg] Radha Sole [facility] 01-12-2024 16:59-0400 Respiratory rate 16 /min Radha Whipple [facility] 01-12-2024 16:59-0400 SaO2% (BldA) [Mass fraction] 100 % Radha Chaparroe [facility] 01-12-2024 16:59-0400 Systolic blood pressure 143 mm[Hg] Radha Chaparroe [facility] 01-12-2024 14:56-0400 Body temperature 98.6 [degF] Radha Chaparroe [facility] 01-12-2024 14:56-0400 bodymassindex 2.3 kg/m2 Radha Chaparroe [facility] Comment on above: Result Comment: ^~:!ZScore [facility] 01-12-2024 14:56-0400 Diastolic blood pressure 86 mm[Hg] Radha Whipple [facility] 01-12-2024 14:56-0400 Heart rate 93 /min Radha Whipple [facility] 01-12-2024 14:56-0400 Height/Length Percentile 61.20 1 Radha Whipple [facility] Comment on above: Result Comment: ^~:!Percentile Source -[facility] 01-12-2024 14:56-0400 Height/Length Z-Score 0.28 1 Radha Whipple [facility] Comment on above: Result Comment: ^~:!ZScore [facility] 01-12-2024 14:56-0400 Respiratory rate 18 /min Radha Whipple [facility] 01-12-2024 14:56-0400 SaO2% (BldA) [Mass fraction] 99 % Radha Whipple [facility] 01-12-2024 14:56-0400 Systolic blood pressure 135 mm[Hg] Radha Whipple [facility] 01-12-2024 14:56-0400 Weight Percentile 99.46 % Radha Whipple [facility] Comment on above: Result Comment: ^~:!Percentile Source -[facility] 01-12-2024 14:56-0400 Weight Z-Score 2.55 1 Radha Whipple [facility] Comment on above: Result Comment: ^~:!ZScore Source [facility] 06-30-2023 13:40-0500 Body height 165.1 cm Valorie Hansen MD Work Phone: [facility] 06-30-2023 13:40-0500 Body mass index (BMI) [Percentile] Per age and sex 99.59 % Valorie Hansen MD Work Phone: [facility] 06-30-2023 13:40-0500 Body mass index (BMI) [Ratio] 43.4 kg/m2 Valorie Hansen MD Work Phone: [facility] 06-30-2023 13:40-0500 Body weight 118.3 kg Valorie Hansen MD Work Phone: [facility] 06-30-2023 13:40-0500 Respiratory rate 16 /min Valorie Hansen MD Work Phone: [facility] 05-13-2023 13:00-0400 Hourly Rounding Hasan AMIR [facility] 05-13-2023 13:00-0400 Promise to Return Hasan AMIR [facility] 05-13-2023 12:00-0400 Body temperature 98.24 [degF] Hasan AMIR [facility] 05-13-2023 12:00-0400 Diastolic blood pressure 84 mm[Hg] Hasan AMIR [facility] 05-13-2023 12:00-0400 Heart rate 76 /min Hasan AMIR [facility] 05-13-2023 12:00-0400 Hourly Rounding Hasan AMIR [facility] 05-13-2023 12:00-0400 Mean blood pressure 93 mm[Hg] Hasan AMIR [facility] 05-13-2023 12:00-0400 Promise to Return Hasan AMIR [facility] 05-13-2023 12:00-0400 Respiratory rate 14 /min Hasan AMIR [facility] 05-13-2023 12:00-0400 SaO2% (BldA) [Mass fraction] 96 % Hasan AMIR [facility] 05-13-2023 12:00-0400 Systolic blood pressure 112 mm[Hg] Hasan AMIR [facility] 05-13-2023 11:00-0400 Diastolic blood pressure 71 mm[Hg] Hasan AMIR [facility] 05-13-2023 11:00-0400 Heart rate 90 /min Hasan AMIR [facility] 05-13-2023 11:00-0400 Hourly Rounding Hasan AMIR [facility] 05-13-2023 11:00-0400 Mean blood pressure 84 mm[Hg] Hasan AMIR [facility] 05-13-2023 11:00-0400 Promise to Return Hasan AMIR [facility] 05-13-2023 11:00-0400 Respiratory rate 13 /min Hasan AMIR [facility] 05-13-2023 11:00-0400 SaO2% (BldA) [Mass fraction] 97 % Hasan AMIR [facility] 05-13-2023 11:00-0400 Systolic blood pressure 111 mm[Hg] Hasan AMIR [facility] 05-13-2023 10:00-0400 Diastolic blood pressure 86 mm[Hg] Hasan AMIR [facility] 05-13-2023 10:00-0400 Heart rate 75 /min Hasan AMIR [facility] 05-13-2023 10:00-0400 Mean blood pressure 97 mm[Hg] Hasan AMIR [facility] 05-13-2023 10:00-0400 Systolic blood pressure 119 mm[Hg] Hasan AMIR [facility] 05-13-2023 08:00-0400 Body temperature 98.78 [degF] Hasan AMIR [facility] 05-13-2023 06:00-0400 Blood Pressure Location Hasan AMIR [facility] 05-13-2023 05:27-0400 weight 2.47 1 Hasan AMIR [facility] Comment on above: Result Comment: ^~:!ZScore Source -[facility] 05-13-2023 05:27-0400 Weight Percentile 99.33 % Hasan AMIR [facility] Comment on above: Result Comment: ^~:!Percentile Source -[facility] 05-13-2023 04:00-0400 Body temperature 97.88 [degF] Hasan AMIR [facility] 05-12-2023 09:00-0400 weight 2.48 1 Hasan AMIR [facility] Comment on above: Result Comment: ^~:!SURYcore Source [facility] 05-12-2023 09:00-0400 Weight Percentile 99.34 % Hasan AMIR [facility] Comment on above: Result Comment: ^~:!Percentile Source -[facility] 05-12-2023 06:18-0400 weight 2.46 1 Hasan AMIR [facility] Comment on above: Result Comment: ^~:!ZScore Source [facility] ^~:!ZScore [facility] 05-12-2023 06:18-0400 Weight Percentile 99.30 % Hasan AMIR [facility] Comment on above: Result Comment: ^~:!Percentile Source -[facility] ^~:!Percentile [facility] 05-11-2023 20:00-0400 Body temperature 97.88 [degF] Hasan AMIR [facility] 05-11-2023 08:01-0400 bodymassindex 2.34 kg/m2 Hasan AMIR [facility] Comment on above: [facility] 08:01-0400 Height/Length Percentile 61.66 1 Hasan AMIR [facility] Comment on above: Result Comment: ^~:!Percentile Source -[facility] 05-11-2023 08:01-0400 Height/Length Z-Score 0.30 1 Hasan AMIR [facility] Comment on above: [facility]: [facility] 07:58-0400 bodymassindex 2.34 kg/m2 Hasan AMIR [facility] Comment on above: Result Comment: [facility]-11-[facility] 07:58-0400 Height/Length Percentile 61.66 1 Hasan AMIR [facility] Comment on above: Result Comment: ^~:![facility] 05-11-2023 07:58-0400 Height/Length Z-Score 0.30 1 Hasan AMIR [facility] Comment on above: Result Comment: [facility]-16-[facility]23 17:47-0400 Diastolic blood pressure 80 mm[Hg] Radha Whipple [facility] 03-16-2023 17:47-0400 Heart rate 84 /min Radha Whipple [facility] 03-16-2023 17:47-0400 Respiratory rate 17 /min Radha Whipple [facility] 03-16-2023 17:47-0400 SaO2% (BldA) [Mass fraction] 99 % Radha Whipple [facility] 03-16-2023 17:47-0400 Systolic blood pressure 133 mm[Hg] Radha Whipple [facility] 03-16-2023 16:52-0400 Body temperature 98.42 [degF] Radha Whipple [facility] 03-16-2023 16:52-0400 bodymassindex 2.36 Radha Whipple [facility] Comment on above: Result Comment: [facility] 03-16-[facility]23 16:52-0400 Diastolic blood pressure 92 mm[Hg] Radha Whipple [facility] 03-16-2023 16:52-0400 Heart rate 104 /min Radha Whipple [facility] 03-16-2023 16:52-0400 Height/Length Percentile 61.80 Radha Whipple [facility] Comment on above: Result Comment: ^~:!Percentile Source -[facility] 03-16-2023 16:52-0400 Height/Length Z-Score 0.30 Radha Whipple [facility] Comment on above: Result Comment: ^~:!ZScore [facility] 03-16-2023 16:52-0400 Respiratory rate 17 /min Radha Whipple [facility] 03-16-2023 16:52-0400 SaO2% (BldA) [Mass fraction] 98 % Radha Whipple [facility] 03-16-2023 16:52-0400 Systolic blood pressure 118 mm[Hg] Radha Whipple [facility] 03-16-2023 16:52-0400 weight 2.52 Radha Whipple [facility] Comment on above: Result Comment: ^~:!ZScore [facility] 03-16-2023 16:52-0400 Weight Percentile 99.41 % Radha Whipple [facility] Comment on above: Result Comment: ^~:!Percentile Source -[facility] 03-13-2023 07:30-0400 Body temperature 98.1 [degF] MD Claudia Ellington Work Phone: [facility] 03-13-2023 07:30-0400 Diastolic blood pressure 65 mm[Hg] MD Claudia Ellington Work Phone: [facility] 03-13-2023 07:30-0400 Heart rate 60 /min MD Claudia Ellington Work Phone: [facility] 03-13-2023 07:30-0400 Respiratory rate 16 /min MD Claudia Ellington Work Phone: [facility] 03-13-2023 07:30-0400 SaO2% (BldA) [Mass fraction] 95 % MD Claudia Ellington Work Phone: [facility] 03-13-2023 07:30-0400 Systolic blood pressure 97 mm[Hg] MD Claudia Ellington Work Phone: [facility] 03-11-2023 15:15-0400 Body height 165.1 cm MD Claudia Ellington Work Phone: [facility] 03-10-2023 15:55-0400 Body weight 113.39 kg MD Claudia Ellington Work Phone: [facility] 03-10-2023 13:00-0400 Hourly Rounding Orlando Paster [facility] 03-10-2023 13:00-0400 Promise to Return Orlando Paster [facility] 03-10-2023 12:28-0400 Hourly Rounding Orlando Paster [facility] 03-10-2023 12:28-0400 Promise to Return Orlando Paster [facility] 03-10-2023 11:00-0400 Blood Pressure Location Orlando Paster [facility] 03-10-2023 11:00-0400 Body temperature 98.06 [degF] Orlando Paster [facility] 03-10-2023 11:00-0400 Diastolic blood pressure 73 mm[Hg] Orlando Paster [facility] 03-10-2023 11:00-0400 Heart rate 91 /min Orlando Paster [facility] 03-10-2023 11:00-0400 Hourly Rounding Orlando Paster [facility] 03-10-2023 11:00-0400 Mean blood pressure 85 mm[Hg] Orlando Paster [facility] 03-10-2023 11:00-0400 Promise to Return Orlando Paster [facility] 03-10-2023 11:00-0400 Respiratory rate 16 /min Orlando Paster [facility] 03-10-2023 11:00-0400 SaO2% (BldA) [Mass fraction] 97 % Orlando Paster [facility] 03-10-2023 11:00-0400 Systolic blood pressure 109 mm[Hg] Orlando Paster [facility] 03-10-2023 07:00-0400 Body temperature 97.88 [degF] Orlando Paster [facility] 03-10-2023 07:00-0400 Diastolic blood pressure 72 mm[Hg] Orlando Paster [facility] 03-10-2023 07:00-0400 Heart rate 87 /min Orlando Paster [facility] 03-10-2023 07:00-0400 Mean blood pressure 86 mm[Hg] Orlando Paster [facility] 03-10-2023 07:00-0400 Respiratory rate 18 /min Orlando Paster [facility] 03-10-2023 07:00-0400 SaO2% (BldA) [Mass fraction] 96 % Orlando Paster [facility] 03-10-2023 07:00-0400 Systolic blood pressure 115 mm[Hg] Orlando Paster [facility] 03-10-2023 05:04-0400 weight 2.52 Orlando Paster [facility] Comment on above: Result Comment: ^~:!ZScore Source -[facility] 03-10-2023 05:04-0400 Weight Percentile 99.41 % Orlando Paster [facility] Comment on above: Result Comment: ^~:!Percentile Source -[facility] 03-10-2023 00:14-0400 Blood Pressure Location Orlando Paster [facility] 03-10-2023 00:14-0400 Body temperature 98.06 [degF] Orlando Paster [facility] 03-10-2023 00:14-0400 Diastolic blood pressure 74 mm[Hg] Orlando Paster [facility] 03-10-2023 00:14-0400 Heart rate 79 /min Orlando Paster [facility] 03-10-2023 00:14-0400 Mean blood pressure 89 mm[Hg] Orlando Paster [facility] 03-10-2023 00:14-0400 Respiratory rate 16 /min Orlando Paster [facility] 03-10-2023 00:14-0400 Systolic blood pressure 118 mm[Hg] Orlando Paster [facility] 03-09-2023 19:28-0400 SaO2% (BldA) [Mass fraction] 95 % Orlando Paster [facility] 03-09-2023 19:28-0400 Mean blood pressure 91 mm[Hg] Orlando Paster [facility] 03-09-2023 19:27-0400 Body temperature 98.06 [degF] Orlando Paster [facility] 03-09-2023 12:39-0400 weight 2.44 Orlando Paster [facility] Comment on above: Result Comment: ^~:!ZScore [facility] 03-09-2023 12:39-0400 Weight Percentile 99.26 % Orlando Paster [facility] Comment on above: Result Comment: ^~:!Percentile Source -[facility] 03-08-2023 10:57-0400 Body temperature 97.88 [degF] Orlando Paster [facility] 03-08-2023 10:56-0400 Mean blood pressure 89 mm[Hg] Orlando Paster [facility] 03-08-2023 07:28-0400 Mean blood pressure 97 mm[Hg] Orlando Paster [facility] 03-08-2023 07:28-0400 Heart rate 81 /min Orlando Paster [facility] 03-08-2023 07:28-0400 Respiratory rate 21 /min Orlando Paster [facility] 03-08-2023 06:49-0400 weight 2.80 Orlando Paster [facility] Comment on above: [facility]: [facility]08-[facility] 06:49-0400 Weight Percentile 99.74 % Orlando Paster [facility] Comment on above: Result Comment: ^~:!Percentile Source -[facility] 03-07-2023 23:48-0400 Respiratory rate 18 /min Orlando Paster [facility] 03-07-2023 20:57-0400 Respiratory rate 18 /min Orlando Paster [facility] 03-07-2023 20:02-0400 bodymassindex 2.58 Orlando Paster [facility] Comment on above: Result Comment: ^~:!ZScore [facility] 03-07-2023 20:02-0400 Height/Length Percentile 61.80 Orlando Paster [facility] Comment on above: Result Comment: ^~:!Percentile Source -[facility] 03-07-2023 20:02-0400 Height/Length Z-Score 0.30 Orlando Paster [facility] Comment on above: Result Comment: ^~:!ZScore [facility] 03-07-2023 18:52-0400 bodymassindex 2.58 Orlando Paster [facility] Comment on above: Result Comment: ^~:!SURYcore [facility] 03-07-2023 18:52-0400 Heart rate 91 /min Orlando Paster [facility] 03-07-2023 18:52-0400 Height/Length Percentile 61.80 Orlando Paster [facility] Comment on above: Result Comment: ^~:!Percentile Source [facility] 03-07-2023 18:52-0400 Height/Length Z-Score 0.30 Orlando Paster [facility] Comment on above: Result Comment: ^~:!Debbie [facility] 03-07-2023 14:11-0400 bodymassindex 2.33 Orlando Paster [facility] Comment on above: Result Comment: ^~:!ZSmicah [facility] 03-07-2023 14:11-0400 Heart rate 105 /min Orlando Paster [facility] 03-07-2023 14:11-0400 Height/Length Percentile 61.21 Orlando Paster [facility] Comment on above: Result Comment: ^~:!Percentile Source [facility] 03-07-2023 14:11-0400 Height/Length Z-Score 0.28 Orlando Paster [facility] Comment on above: Result Comment: [facility]-13-[facility] 13:56-0400 Body temperature 98.06 [degF] Wilfredokeysha Villareal [facility] 11-13-2022 13:56-0400 bodymassindex 2.31 Wilfredokeysha Villareal [facility] Comment on above: Result Comment: ^~:![facility] 11-13-2022 13:56-0400 Diastolic blood pressure 85 mm[Hg] Wilfredokeysha Villareal [facility] 11-13-2022 13:56-0400 Heart rate 94 /min Wilfredokeysha Villareal [facility] 11-13-2022 13:56-0400 Height/Length Percentile 61.53 Wilfredo Villareal [facility] Comment on above: Result Comment: ^~:![facility] 11-13-2022 13:56-0400 Height/Length Z-Score 0.29 Wilfredokeysha Villareal [facility] Comment on above: Result Comment: ^~:![facility] 11-13-2022 13:56-0400 Respiratory rate 16 /min Wilfredokeysha Villareal [facility] 11-13-2022 13:56-0400 SaO2% (BldA) [Mass fraction] 97 % Wilfredo Villareal [facility] 11-13-2022 13:56-0400 Systolic blood pressure 135 mm[Hg] Wilfredo Villareal [facility] 11-13-2022 13:56-0400 weight 2.42 Wilfredo Villareal [facility] Comment on above: Result Comment: ^~:![facility] 11-13-2022 13:56-0400 Weight Percentile 99.23 % Wilfredo Villareal [facility] Comment on above: Result Comment: ^~:!Percentile Source -[facility] 10-11-2022 01:10-0500 Diastolic blood pressure 74 mm[Hg] Kaylinn Dokken [facility] 10-11-2022 01:10-0500 Heart rate 85 /min Kaylinn Dokken [facility] 10-11-2022 01:10-0500 Respiratory rate 12 /min Kaylinn Dokken [facility] 10-11-2022 01:10-0500 SaO2% (BldA) [Mass fraction] 98 % Kaylinn Dokken [facility] 10-11-2022 01:10-0500 Systolic blood pressure 118 mm[Hg] Kaylinn Dokken [facility] 10-11-2022 00:04-0500 Diastolic blood pressure 74 mm[Hg] Kaylinn Dokken [facility] 10-11-2022 00:04-0500 Heart rate 74 /min Kaylinn Dokken [facility] 10-11-2022 00:04-0500 Respiratory rate 12 /min Kaylinn Dokken [facility] 10-11-2022 00:04-0500 SaO2% (BldA) [Mass fraction] 97 % Kaylinn Dokken [facility] 10-11-2022 00:04-0500 Systolic blood pressure 101 mm[Hg] Kaylinn Dokken [facility] 10-10-2022 23:00-0500 Diastolic blood pressure 85 mm[Hg] Kaylinn Dokken [facility] 10-10-2022 23:00-0500 Heart rate 87 /min Alexinn Dokken [facility] 10-10-2022 23:00-0500 Mean blood pressure 92 mm[Hg] Rockyylinn Dokken [facility] 10-10-2022 23:00-0500 Respiratory rate 20 /min Alexinn Dokken [facility] 10-10-2022 23:00-0500 Systolic blood pressure 105 mm[Hg] Alexinn Dokken [facility] 10-10-2022 21:54-0500 Body temperature 98.42 [degF] Alexinn Dokken [facility] 10-10-2022 21:54-0500 bodymassindex 2.32 Ginan Dokken [facility] Comment on above: Result Comment: [facility] 21:54-0500 Height/Length Percentile 62.20 Ginan Dokken [facility] Comment on above: Result Comment: ^~:!Percentile [facility] 10-10-2022 21:54-0500 Height/Length Z-Score 0.31 Ginan Dokken [facility] Comment on above: Result Comment: ^[facility] 10-10-[facility]22 21:54-0500 Respiratory rate 15 /min Alexinn Dokken [facility] 10-10-2022 21:54-0500 weight 2.43 Rockyylinn Dokken [facility] Comment on above: Result Comment: ^~:!ZScore [facility] 10-10-2022 21:54-0500 Weight Percentile 99.24 % Ko Draper [facility] Comment on above: Result Comment: ^~:!Percentile Source -[facility] 10-06-2022 14:00-0500 Diastolic blood pressure 69 mm[Hg] Han Miky [facility] 10-06-2022 14:00-0500 Heart rate 79 /min Han Miky [facility] 10-06-2022 14:00-0500 Mean blood pressure 87 mm[Hg] Han Miky [facility] 10-06-2022 14:00-0500 Respiratory rate 18 /min Han Miky [facility] 10-06-2022 14:00-0500 SaO2% (BldA) [Mass fraction] 95 % Han Miky [facility] 10-06-2022 14:00-0500 Systolic blood pressure 122 mm[Hg] Han Miky [facility] 10-06-2022 00:30-0500 Diastolic blood pressure 60 mm[Hg] Han Miky [facility] 10-06-2022 00:30-0500 Heart rate 88 /min Han Miky [facility] 10-06-2022 00:30-0500 Respiratory rate 18 /min Han Miky [facility] 10-06-2022 00:30-0500 SaO2% (BldA) [Mass fraction] 96 % Han Miky [facility] 10-06-2022 00:30-0500 Systolic blood pressure 102 mm[Hg] Han Miky [facility] 10-05-2022 23:51-0500 Body temperature 97.7 [degF] Han Miky [facility] 10-05-2022 23:51-0500 bodymassindex 2.34 Han Miky [facility] Comment on above: Result Comment: ^~:!ZScore [facility] 10-05-2022 23:51-0500 Diastolic blood pressure 78 mm[Hg] Han Miky [facility] 10-05-2022 23:51-0500 Heart rate 89 /min Han Miky [facility] 10-05-2022 23:51-0500 Height/Length Percentile 61.61 Han Miky [facility] Comment on above: Result Comment: ^~:![facility] 10-05-2022 23:51-0500 Height/Length Z-Score 0.30 Han Miky [facility] Comment on above: Result Comment: ^[facility] 10-05-[facility]22 23:51-0500 Respiratory rate 18 /min Han Miky [facility] 10-05-2022 23:51-0500 SaO2% (BldA) [Mass fraction] 95 % Han Miky [facility] 10-05-2022 23:51-0500 Systolic blood pressure 171 mm[Hg] Han Miky [facility] 10-05-2022 23:51-0500 weight 2.45 Han Miky [facility] Comment on above: Result Comment: ^[facility] 10-05-[facility]22 23:51-0500 Weight Percentile 99.29 % Han Miky [facility] Comment on above: Result Comment: ^~:!Percentile Source -[facility] 07-08-2022 22:00-0500 Body temperature 98.78 [degF] Kaylinn Dokken [facility] 07-08-2022 22:00-0500 Diastolic blood pressure 74 mm[Hg] Kaylinn Dokken [facility] 07-08-2022 22:00-0500 Heart rate 77 /min Kaylinn Dokken [facility] 07-08-2022 22:00-0500 Mean blood pressure 86 mm[Hg] Kaylinn Dokken [facility] 07-08-2022 22:00-0500 Respiratory rate 12 /min Kaylinn Dokken [facility] 07-08-2022 22:00-0500 SaO2% (BldA) [Mass fraction] 97 % Kaylinn Dokken [facility] 07-08-2022 22:00-0500 Systolic blood pressure 110 mm[Hg] Kaylinn Dokken [facility] 07-08-2022 21:44-0500 Body temperature 99.32 [degF] Kaylinn Dokken [facility] 07-08-2022 21:44-0500 Diastolic blood pressure 73 mm[Hg] Kaylinn Dokken [facility] 07-08-2022 21:44-0500 Heart rate 90 /min Kaylinn Dokken [facility] 07-08-2022 21:44-0500 Mean blood pressure 88 mm[Hg] Kaylinn Dokken [facility] 07-08-2022 21:44-0500 Respiratory rate 16 /min Kaylinn Dokken [facility] 07-08-2022 21:44-0500 SaO2% (BldA) [Mass fraction] 96 % Kaylinn Dokken [facility] 07-08-2022 21:44-0500 Systolic blood pressure 119 mm[Hg] Kaylinn Dokken [facility] 07-08-2022 21:00-0500 Diastolic blood pressure 67 mm[Hg] Kaylinn Dokken [facility] 07-08-2022 21:00-0500 Heart rate 80 /min Kaylinn Dokken [facility] 07-08-2022 21:00-0500 Mean blood pressure 83 mm[Hg] Kaylinn Dokken [facility] 07-08-2022 21:00-0500 SaO2% (BldA) [Mass fraction] 98 % Kaylinn Dokken [facility] 07-08-2022 21:00-0500 Systolic blood pressure 116 mm[Hg] Kaylinn Dokken [facility] 07-08-2022 18:52-0500 Body temperature 100.04 [degF] Kaylinn Dokken [facility] 07-08-2022 18:52-0500 bodymassindex 2.38 Kaylinn Dokken [facility] Comment on above: Result Comment: [facility] 07-08-2022 18:52-0500 Heart rate 86 /min Kaylinn Dokken [facility] 07-08-2022 18:52-0500 Height/Length Percentile 61.90 % Ko Draper [facility] Comment on above: Result Comment: ^~:!Percentile [facility] 07-08-2022 18:52-0500 Height/Length Z-Score 0.30 Ko Draper [facility] Comment on above: Result Comment: ^~:!ZScore [facility] 07-08-2022 18:52-0500 Respiratory rate 18 /min Ko Draper [facility] 07-08-2022 18:52-0500 weight 2.47 Ko Draper [facility] Comment on above: Result Comment: ^~:!ZScore [facility] 07-08-2022 18:52-0500 Weight Percentile 99.33 % Ko Draper [facility] Comment on above: Result Comment: ^~:!Percentile [facility] 07-04-2022 18:09-0500 Body temperature 98.06 [degF] Radha Whipple [facility] 07-04-2022 18:09-0500 bodymassindex 2.21 Radha Whipple [facility] Comment on above: Result Comment: ^~:!ZScore [facility] 07-04-2022 18:09-0500 Diastolic blood pressure 83 mm[Hg] Radah Chaparroe [facility] 07-04-2022 18:09-0500 Heart rate 99 /min Radha Whipple [facility] 07-04-2022 18:09-0500 Height/Length Percentile 61.90 % Radha Whipple [facility] Comment on above: Result Comment: ^~:!Percentile Source -[facility] 07-04-2022 18:09-0500 Height/Length Z-Score 0.30 Radha Whipple [facility] Comment on above: Result Comment: [facility]-04-[facility] 18:09-0500 Respiratory rate 18 /min Radha Whipple [facility] 07-04-2022 18:09-0500 SaO2% (BldA) [Mass fraction] 97 % Radha Whipple [facility] 07-04-2022 18:09-0500 Systolic blood pressure 121 mm[Hg] Radha Whipple [facility] 07-04-2022 18:09-0500 weight 2.29 Radha Whipple [facility] Comment on above: Result Comment: ^~:![facility] 07-04-2022 18:09-0500 Weight Percentile 98.88 % Radha Whipple [facility] Comment on above: Result Comment: ^~:!Percentile Source [facility] 07-02-2022 16:02-0500 Diastolic blood pressure 64 mm[Hg] Wilfredo Mono [facility] 07-02-2022 16:02-0500 Heart rate 95 /min Wilfredokeysha Villareal [facility] 07-02-2022 16:02-0500 Respiratory rate 18 /min Wilfredo Mono [facility] 07-02-2022 16:02-0500 SaO2% (BldA) [Mass fraction] 95 % Wilfredo Villareal [facility] 07-02-2022 16:02-0500 Systolic blood pressure 108 mm[Hg] Wilfredo Villareal [facility] 07-02-2022 14:24-0500 Diastolic blood pressure 78 mm[Hg] Wilfredo Villareal [facility] 07-02-2022 14:24-0500 Heart rate 95 /min Wilfredo Villareal [facility] 07-02-2022 14:24-0500 Respiratory rate 18 /min Wilfredo Villareal [facility] 07-02-2022 14:24-0500 SaO2% (BldA) [Mass fraction] 96 % Wilfredo Villareal [facility] 07-02-2022 14:24-0500 Systolic blood pressure 137 mm[Hg] Wilfredo Villareal [facility] 07-02-2022 13:28-0500 Body temperature 98.06 [degF] Wilfredo Villareal [facility] 07-02-2022 13:28-0500 bodymassindex 2.21 Wilfredo Villareal [facility] Comment on above: Result Comment: [facility] 13:28-0500 Diastolic blood pressure 74 mm[Hg] Wilfredo Villareal [facility] 07-02-2022 13:28-0500 Heart rate 108 /min Wilfredo Villareal [facility] 07-02-2022 13:28-0500 Height/Length Percentile 61.90 % Wilfredo Villareal [facility] Comment on above: Result Comment: ^~:!Percentile Source [facility] 07-02-2022 13:28-0500 Height/Length Z-Score 0.30 Wilfredo Villareal [facility] Comment on above: Result Comment: ^~:!ZScore [facility] 07-02-2022 13:28-0500 Respiratory rate 18 /min Wilfredo Villareal [facility] 07-02-2022 13:28-0500 SaO2% (BldA) [Mass fraction] 98 % Wilfredo Villareal [facility] 07-02-2022 13:28-0500 Systolic blood pressure 130 mm[Hg] Wilfredo Villareal [facility] 07-02-2022 13:28-0500 weight 2.29 Wilfredo Villareal [facility] Comment on above: Result Comment: ^~:!ZScore [facility] 07-02-2022 13:28-0500 Weight Percentile 98.88 % Wilfredo Villareal [facility] Comment on above: Result Comment: ^~:!Percentile Source [facility] 12-05-2021 22:39-0400 Blood Pressure Location Wilfredo Villareal [facility] 12-05-2021 22:39-0400 Body temperature 98.42 [degF] Wilfredo Villareal [facility] 12-05-2021 22:39-0400 Diastolic blood pressure 98 mm[Hg] Wilfredo Villraeal [facility] 12-05-2021 22:39-0400 Heart rate 114 /min Wilfredo Villareal [facility] 12-05-2021 22:39-0400 Mean blood pressure 110 mm[Hg] Wilfredo Villareal [facility] 12-05-2021 22:39-0400 Respiratory rate 16 /min Wilfredo Villareal [facility] 12-05-2021 22:39-0400 SaO2% (BldA) [Mass fraction] 95 % Wilfredo Villareal [facility] 12-05-2021 22:39-0400 Systolic blood pressure 133 mm[Hg] Wilfredo Villareal [facility] 12-05-2021 19:45-0400 Blood Pressure Location Wilfredo Villareal [facility] 12-05-2021 19:45-0400 Body temperature 99.68 [degF] Wilfredo Villareal [facility] 12-05-2021 19:45-0400 Diastolic blood pressure 91 mm[Hg] Wilfredo Mono [facility] 12-05-2021 19:45-0400 Heart rate 107 /min Wilfredo Mono [facility] 12-05-2021 19:45-0400 Mean blood pressure 101 mm[Hg] Wilfredo Villareal [facility] 12-05-2021 19:45-0400 Respiratory rate 16 /min Wilfredo Villareal [facility] 12-05-2021 19:45-0400 SaO2% (BldA) [Mass fraction] 99 % Wilfredo Villareal [facility] 12-05-2021 19:45-0400 Systolic blood pressure 122 mm[Hg] Wilfredo Villareal [facility] 12-05-2021 18:51-0400 Blood Pressure Location Wilfredo Villareal [facility] 12-05-2021 18:51-0400 Diastolic blood pressure 64 mm[Hg] Wilfredo Mono [facility] 12-05-2021 18:51-0400 Heart rate 74 /min Wilfredo Mono [facility] 12-05-2021 18:51-0400 Mean blood pressure 88 mm[Hg] Wilfredo Mono [facility] 12-05-2021 18:51-0400 Respiratory rate 16 /min Wilfredo Mono [facility] 12-05-2021 18:51-0400 SaO2% (BldA) [Mass fraction] 99 % Wilfredo Mono [facility] 12-05-2021 18:51-0400 Systolic blood pressure 137 mm[Hg] Wilfredo Villareal [facility] 12-05-2021 07:00-0400 Body temperature 98.6 [degF] Wilfredo Mono [facility] Encounters Encounter Date Encounter Type Care Provider Facility Start: 03-03-2024 End: 03-03-2024 ambulatory Zenon Hernandez Facility:[facility] Start: 03-03-2024 End: 03-03-2024 Patient encounter procedure Zenon Hernandez [facility] Start: 03-02-2024 ambulatory Claudia Ellington Facility: [facility] Start: 03-01-2024 End: 03-01-2024 ambulatory PEYTON QUIROZ Not Available Start: 02-16-2024 End: 02-16-2024 ambulatory Radha Cantor Facility:[facility] Start: 02-16-2024 End: 02-16-2024 Patient encounter procedure Radha Cantor [facility] Start: 02-09-2024 End: 02-09-2024 ambulatory Zenon Hernandez Facility:[facility] Start: 02-09-2024 End: 02-09-2024 Patient encounter procedure Radha Cantor [facility] [place] Start: 01-28-2024 ambulatory Washam Start: 01-25-2024 ambulatory Migue Farrell Facility :[facility] Start: 01-22-2024 End: 01-22-2024 ambulatory Zenon Hernandez Facility:[facility] Start: 01-22-2024 End: 01-22-2024 Patient encounter procedure Zenon Hernandez [facility] Start: 01-14-2024 ambulatory [facility]igue [facility]rell [facility] Start: 01-13-2024 End: 01-13-2024 Emergency department patient visit Migue Farrell [facility] Start: 01-12-2024 End: 01-12-2024 Emergency department patient visit Radha Whipple Facility:[facility] Start: 06-30-2023 ambulatory VALORIE HANSEN [facility] Start: 06-30-2023 End: 06-30-2023 Office outpatient new 30 minutes Valorie Hansen MD Work Phone: [facility] Comment on above: Macromastia (Primary Dx); Thoracic spine pain Start: 05-11-2023 End: 05-13-2023 Evaluation and management of inpatient Akosua LR [facility] Start: 04-27-2023 Evaluation and management of inpatient Noel Stratton Facility:[facility] Start: 03-16-2023 End: 03-16-2023 Emergency department patient visit Radha Whipple [facility] Start: 03-10-2023 End: 03-13-2023 Evaluation and management of inpatient MD Claudia Ellington Work Phone: [address] Work Phone: Start: 03-10-2023 End: 03-10-2023 ambulatory CLAUDIA ELLINGTON [facility] Start: 03-08-2023 End: 03-10-2023 Evaluation and management of inpatient Lawrence Reveles Facility:[facility] Start: 03-07-2023 End: 03-10-2023 Evaluation and management of inpatient Orlando HiLaurita Wade [facility] Start: 02-27-2023 End: 02-27-2023 ambulatory MISTY MACKEY Facility:[facility] Start: 11-14-2022 End: 11-14-[address] [facility] Start: 11-13-2022 End: 11-13-2022 Emergency department patient visit Wilfredo Villareal [facility] Start: 11-05-2022 End: 11-06-[address] CLAUDIA ELLINGTON . Facility: Start: 11-05-2022 End: 11-05-2022 ambulatory TEENA TRAN . Facility: Start: 10-15-2022 End: 10-15-2022 ambulatory JUAN MIGUEL HUYNH [facility] Start: 10-13-2022 End: 10-13-[address] [facility] Start: 10-10-2022 End: 10-11-2022 Emergency department patient visit Ko Draper [facility] Start: 10-06-2022 End: 10-06-[address] [facility] Start: 10-05-2022 End: 10-06-2022 Emergency department patient visit Han Bolaños [facility] Start: 10-03-[address] CLAUDIA ELLINGTON . Facili ty:[facility]1 Start: 09-25-2022 End: 09-26-[address] CLAUDIA ELLINGTON . Facility:[facility] Start: 09-24-2022 End: 09-25-[address] CLAUDIA ELLINGTON . Facility:[facility] Start: 09-11-2022 End: 09-11-[address] CLAUDIA ELLINGTON . Facility:[facility] Start: 08-05-2022 End: 08-05-[address] CLAUDIA ELLINGTON . Facility:[facility] Start: 07-31-2022 End: 07-31-2022 ambulatory MD Claudia Ellington Work Phone: [facility] Work Phone: Start: 07-31-2022 End: 07-31-2022 Patient encounter procedure MD Claudia Ellington Work Phone: [facility] [place] Work Phone: Start: 07-24-2022 End: 07-24-[address] CLAUDIA ELLINGTON . Facility:[facility] Start: 07-23-2022 End: 07-23-[address] CLAUDIA ELLINGTON . Facility:[facility] Start: 07-08-2022 End: 07-08-2022 Emergency department patient visit Ko Draepr [facility] Start: 07-08-2022 End: 07-08-[address] CLAUDIA ELLINGTON . Facility:[facility] Start: 07-04-2022 End: 07-04-2022 Emergency department patient visit Radha Whipple [facility] Start: 07-02-2022 End: 07-02-2022 Emergency department patient visit Wilfredo Villareal [facility] Start: 06-25-2022 End: 06-25-[address] CLAUDIA ELLINGTON . Facility:[facility] Start: 06-20-2022 End: 06-20-[address] CLAUDIA ELLINGTON . Facility:[facility] Start: 05-26-2022 End: 05-26-[address] CLAUDIA ELLINGTON . Facility:[facility] Start: 05-14-2022 End: 05-14-2022 ambulatory CALUDIA ELLINGTON [facility] Start: 04-26-2022 End: 04-27-[address] CLAUDIA ELLINGTON . Facility:[facility] Start: 04-04-2022 End: 04-04-2022 Patient encounter procedure MISTY MACKEY [facility] Start: 03-20-2022 End: 03-20-[address] CLAUDIA ELLINGTON . Facility:[facility] Start: 03-05-2022 End: 03-05-[address] CLAUDIA ELLINGTON . Facility:[facility] Start: 01-17-2022 End: 01-17-[address] CLAUDIA ELLINGTON . Facility:[facility] Start: 12-04-2021 End: 12-05-2021 Emergency department patient visit Wilfredo Villareal [facility] Start: 09-02-2018 Patient encounter procedure Martina Bedolla Facility:[id number] Start: 03-29-2018 Patient encounter procedure Martina Bedolla Facility:[id number] Start: 03-18-2018 Patient encounter procedure Liss Salvadro Facility:[id number] Start: 01-25-2018 Patient encounter procedure Martina Bedolla Facility:[id number] Procedures Date Procedure Procedure Detail Performing Clinician Myringotomy and antwan strickland of middle ear Wilfredo Villareal Plan of Treatment Date Care Activity Detail Author Start: 01-29-2028 Tetanus vaccination TETANUS [facility] Start: 04-03-2023 COVID-19 VACCINE ( season) COVID-19 VACCINE () [facility] Start: 03-13-2023 [facility] Start: 03-10-2023 Hospital admission [facility] Start: 03-10-2023 [facility] Start: 2020 Screening for Chlamy patricia trachomatis CHLAMYDIA SCREEN [facility] Start: 12-31-2019 HIV screening HIV SCREENING DISCUSSI ON [facility] Start: 2004 Hepatitis C screening HEPATITI S C VIRUS SCREENING [facility] Start: 2004 Screening for Chlamy patricia trachomatis GONORRHEA SCREEN [facility] Patient Education Depression, Ad ult (DC) [facility] [place] Instructions [facility] Work Phone: Patient referral [facility] Work Phone: Immunizations Immunization Date Immunization Notes Care Provider Hope ackerman 05-06-2023 influenza virus vaccine, unspecified formulation Zenon Vizcainowei [facility] 10-03-2022 SARS-CoV-2 (COVID-19 ) mRNAMUL.[id number] Orlando Paster [facility] 07-31-2022 meningococcal B vaccine, fully recombinant Orlando Paster [facility] 07-31-2022 SARS-CoV-2 (COVID-19 ) mRNA-1273 vaccine Orlando Paster [facility] 07-01-2022 influenza virus vaccine, unspecified formulation Orlando Paster [facility] 07-01-2022 meningococcal ACWY vaccine, unspecified formulation Orlando Paster [facility] 07-01-2022 meningococcal B vaccine, fully recombinant Orlando Paster [facility] 07-01-2022 SARS-CoV-2 (COVID-19 ) mRNA-1273 vaccine Orlando Paster [facility] 08-09-2019 HPV, unspecified formulation Orlando Paster [facility] 08-09-2019 influenza virus vaccine, unspecified formulation Orlando Paster [facility] 01-28-2018 meningococcal ACWY vaccine, unspecified formulation Orlando Paster [facility] 01-28-2018 tetanus toxoid, redu elisabeth diphtheria toxoid, and acellular pertussis vaccine, adsorbed Orlando Paster [facility] 01-26-2018 HPV, unspecified formulation Orlando Paster [facility] 07-21-2011 hepatitis A vaccine, unspecified formulation Orlando Paster [facility] 01-16-2011 Diphtheria, tetanus toxoids and acellular pertussis vaccine, and poliovirus vaccine, inactivated Orlando Paster [facility] 01-16-2011 hepatitis A vaccine, unspecified formulation Orlando Paster [facility] 01-16-2011 measles, mumps, rubella, and varicella virus vaccine Orlando Paster [facility] 04-20-2006 diphtheria, tetanus toxoids and acellular pertussis vaccine Orlando Paster [facility] 04-20-2006 varicella virus vaccine Will alexis Paster [facility] 01-28-2006 Hib, unspecified formulation Orlando Paster [facility] 01-28-2006 measles, mumps and rubella virus vaccine Orlando Paster [facility] 07-23-2005 DTaP-hepatitis B and poliovirus vaccine Orlando Paster [facility] 07-23-2005 haemophilus influenz ae type b vaccine, PRP-T conjugate Orlando Paster [facility] 05-28-2005 DTaP-hepatitis B and poliovirus vaccine Orlando Paster [facility] 05-28-2005 haemophilus influenz ae type b vaccine, PRP-T conjugate Orlando Paster [facility] 03-27-2005 DTaP-hepatitis B and poliovirus vaccine Orlando Paster [facility] 03-27-2005 haemophilus influenz ae type b vaccine, PRP-T conjugate Orlando Wade [facility] 2004 hepatitis B vaccine, pediatric or pediatric/adolescent dosage Orlando Wade [facility] Payers Date Payer Category Payer Unknown ANU CALIXTO [id number] 2023-Present [address] [place] [address] [id number] 2022 Self-pay [id number] 2004 Unknown [id number] 2.16.840.1.727904.3.579.2.479 2004 Unknown [id number] 2.16.840.1.758916.3.579.2.983 2004 Unknown [id number] 2.16.840.1.230588.3.579.2.727 2004 Unknown [id number] 2.16.840.1.821172.3.579.2.727 2004 Unknown [id number] 2.16.840.1.024689.3.579.2.727 2004 Unknown [id number] 2.16.840.1.351062.3.579.2.727 2004 Unknown [id number] 2.16.840.1.767331.3.579.2.727 2004 Unknown [id number] 2.16.840.1.359229.3.579.2.727 2004 Unknown [id number] 2.16.840.1.575448.3.579.2.727 2004 Unknown [id number] 2.16.840.1.214941.3.579.2.1259 2004 Unknown [id number] 2.16.840.1.298084.3.579.2.727 2004 Unknown [id number] 2.16.840.1.404448.3.579.2.727 2004 Unknown [id number] 2.16.840.1.342674.3.579.2.727 2004 Unknown [id number] 2.16.840.1.807036.3.579.2.727 2004 Unknown [id number] 2.16.840.1.614269.3.579.2.727 2004 Unknown [id number] 2.16.840.1.154051.3.579.2.727 1979 Unknown [id number] 2.16.840.1.744722.3.579.2.356 1979 Unknown [id number] 2.16.840.1.730540.3.579.2.356 1979 Unknown [id number] 2.16.840.1.108253.3.579.2.356 1979 Unknown [id number] 2.16.840.1.713887.3.579.2.356 1979 Unknown [id number] 2.16.840.1.092013.3.579.2.593 1979 Unknown [id number] 2.16.840.1.659161.3.579.2.593 1979 Unknown [id number] 2.16.840.1.190541.3.579.2.593 1979 Unknown [id number] 2.16.840.1.976635.3.579.2.593 1979 Unknown [id number] 2.16.840.1.555070.3.579.2.593 1979 Unknown [id number] 2.16.840.1.073901.3.579.2.593 1979 Unknown [id number] 2.16.840.1.130776.3.579.2.593 1979 Unknown [id number] 2.16.840.1.948032.3.579.2.593 1979 Unknown [id number] 2.16.840.1.778902.3.579.2.593 1979 Unknown [id number] 2.16.840.1.835815.3.579.2.593 1979 Unknown [id number] 2.16.840.1.118721.3.579.2.593 1979 Unknown [id number] 2.16.840.1.936665.3.579.2.593 1979 Unknown [id number] 2.16.840.1.587171.3.579.2.593 1979 Unknown [id number] 2.16.840.1.077205.3.579.2.593 1979 Unknown [id number] 2.16.840.1.861979.3.579.2.593 1979 Unknown [id number] 2.16.840.1.156000.3.579.2.593 1979 Unknown [id number] 2.16.840.1.164426.3.579.2.593 1979 Unknown [id number] 2.16.840.1.462176.3.579.2.593 1979 Unknown [id number] 2.16.840.1.344578.3.579.2.479 1979 Unknown [id number] 2.16.840.1.333540.3.579.2.479 1979 Unknown [id number] 2.16.840.1.643531.3.579.2.479 1979 Unknown [id number] 2.16.840.1.970227.3.579.2.479 1979 Unknown [id number] 2.16.840.1.432836.3.579.2.479 1959 Unknown [id number] 1959 Unknown [id number] Unknown [id number] 2.16.840.1.862528.3.579.2.531 Unknown [id number] 2.16.840.1.033583.3.579.2.531 Unknown [id number] 2.16.840.1.096157.3.579.2.531 Social History Date Type Detail Facility Start: 12-04-2021 End: 02-09-2024 Tobacco smoking status Never smoked tobacco (finding) [facility] Start: 06-30-2023 Sex Assigned At Female [facility] Tobacco [facility] Comment on above: denies Tobacco smoking status No Smokin g Status Entered [facility] Start: 2004 Sex Assigned At Female F [facility] Start: 06-30-2023 [facility] sm[facility] Start: 06-30-2023 History of Social function [facility] Start: 06-30-2023 Tobacco Comment vape [facility] Start: 2004 Sex Assigned At Not on file [facility] [employer] Goals Date Patient Goal Desired Activity /State Functional Status Date Assessment Result Facility 01-22-2024 Functional Status N/A [facility] 01-13-2024 Functional Status N/A [facility] 01-12-2024 Functional Status N/A [facility] 05-11-2023 Functional Status N/A [facility] 03-16-2023 Functional Status N/A [facility] 03-13-2023 Functional status Patient at Baseline [facility] Work Phone: 03-07-2023 Functional Status N/A [facility] 03-07-2023 Functional Status [facility] 11-13-2022 Functional Status N/A [facility] 10-10-2022 Functional Status N/A [facility] 10-05-2022 Functional Status N/A [facility] 07-08-2022 Functional Status N/A [facility] 07-04-2022 Functional Status N/A [facility] 07-02-2022 Functional Status N/A [facility] Mental Status Date Assessment Result Facility 03-13-2023 Cognitive function Cognitive Sta tus Patient at Baseline [facility] Work Phone: Clinical Notes 07-02-2022 to 02-16-2024 RadiologyRadiologyValorie Hansen MD - 06/30/2023 2:00 PM EST Note Date & Type Note Facility 02-16-2024 Evaluation + Plan note Future Scheduled TestsCT Abdomen w/ Contrast 02/16/24 [facility] 01-22-2024 Evaluation + Plan note Future Scheduled TestsCT Abdomen w/ Contrast 01/22/24 [facility] 01-13-2024 Hospital Discharge instructions Patient Education 01/13/2024 20:49:15 Acute Pancreatitis, Zclh-th-Mbpy Acute Pancreatitis Acute pancreatitis happens when there [...] Follow these instructions at home: Medicines Take qahw-rdt-xbiyphb and prescription medicines only as told by [...] provider. Document Revised: 06/10/2022 Document Reviewed: 06/10/2022 [employer] Patient Education 2022 [employer]. Follow Up Care 01/13/2024 18:23:07 With:Zenon Hernandez Address: [address] [address] [phone] Business (1) When:01/16/2024 20:48:55 Comments:Call to schedule an appointment with the director business travel for further management of care With:Claudia Ellington Address: [address] [place] [address] [place] [place] [address]- Business (1) When:Within 3 Day(s) [facility] 01-12-2024 Hospital Discharge instructions Patient Education [...] Water. Coffee and tea (caffeinated or decaffeinated). [place]. Liquid nutritional supplements. Soft drinks. Nondairy milks, such as almond, coconut, rice, or soy milk. Sweets and desserts Custard. Pudding. Flavored gelatin. Smooth ice cream (without nuts or candy pieces). Sherbet. Frozen ice pops. Romansh ice. Pudding pops. Seasonings and condiments Salt and pepper. Spices. Vinegar. Ketchup. Yellow mustard. Smooth sauces, such as Hollandaise, cheese sauce, or white sauce. Soy sauce. Syrup. Honey. Jelly (without fruit pieces). Other foods [place] powder. Cream soups. Strained soups. The items [...] provider. Document Revised: 05/07/2021 Document Reviewed: 05/07/2021 Elsevier Patient Education 2022 [employer]. 01/12/2024 16:42:34 Nausea, Adult, Rejn-sh-Bovj Nausea, Adult Nausea is feeling like you [...] fruit juice). ?Low-calorie sports drinks. Eat bland, utsc-nw-mrhyfv foods in small amounts as you are able, such as: ?Bananas. ?Applesauce. ?Rice. ?Low-fat (lean) meats. ?[place]. ?Crackers. Avoid drinking fluids that have a lot of sugar or caffeine in them. This includes energy drinks, sports drinks, and soda. Avoid alcohol. Avoid spicy or fatty foods. General instructions Take qapt-lel-xpotkos and prescription medicines only as told by [...] cannot use soap and water, use hand receiving inspector. Make sure that everyone in your home [...] drink what your doctor tells you. Take ddxw-omh-rrmkwgj and prescription medicines only as told by your doctor. Contact a doctor right away if your symptoms get worse or you have new symptoms. Keep all follow-up visits. This information is not intended to replace advice given to you by your health care provider. Make sure you discuss any questions you have with your health care provider. Document Revised: 01/24/2022 Document Reviewed: 01/24/2022 [employer] Patient Education 2022 [employer]. 01/12/2024 16:42:31 Abdominal Pain, Adult, Gops-vh-Adhv Abdominal Pain, Adult Many things can cause belly (abdominal) pain. Most times, belly pain is not dangerous. Many cases of belly pain can be watched and treated at home. Sometimes, though, belly pain is serious. Your doctor will try to find the cause of your belly pain. Follow these instructions at home: Medicines Take tmaa-dpg-rttbjjl and prescription medicines only as told by [...] your belly pain for any changes. Take uzgw-cpg-uahbsyo and prescription medicines only as told by [...] provider. Document Revised: 11/28/2019 Document Reviewed: 11/28/2019 [employer] Patient Education 2022 [employer]. Follow Up Care 01/12/2024 14:44:40 With:Claudia Ellington MD Address: [address] [place] [address] [place] [address]- When:01/15/2024 [facility] 06-30-2023 History of Present illness Narrative [...] her perioperative risk. documented in this encounter [facility] 05-25-2023 Note Admission and Discha rge Information Admit Date/Time:05/11/2023 07:29 Admitting Physician - ADELINE MARCANO, Akosua Referring Physician - PEYTON QUIROZ CNP Admitting Diagnoses: Discharge Diagnoses 1. Seizures, [...] 46.4 % Lymph Auto - 41.3 % [place] Auto - 8.8 % Eos Auto - 3.1 % Basophil Auto - 0.4 % Neutro Absolute - 2.6 E9/L Lymph Absolute - 2.3 E9/L [place] Absolute - 0.5 E9/L Eos Absolute - 0.2 E9/L Basophil Absolute - 0.0 E9/L Capillary Glucose POC (05/12/2023) Glucose Cap - 84 mg/dL POC Device SN - [id number] POC User ID - [id number] POC Username - NERY ALCALA CBC w/ [...] Follow-up With When Contact Information Joann Zamorano [address] [address]- Business (1) Additional Instructions: Call for hospital followup appointment 2-3 weeks Claudia Ellington [address] [place] [phone]- Business (1) Additional Instructions: Call for followup appointment Patient Education Seizure, Adult [facility] Comment on above: Result Comment: Elec [...] are moving when they are not. D eldon vu. This is a feeling of having [...] Follow these instructions at home: Medicines Take jigf-ivb-tixxbwt and prescription medicines only as told by [...] medicines are used to treat seizures. Take xgvc-jec-imnriqw and prescription medicines only as told by your health care provider. This information is not intended to replace advice given to you by your health care provider. Make sure you discuss any questions you have with your health care provider. Document Revised: 01/25/2021 Document Reviewed: 01/25/2021 [employer] Patient Education 2022 [employer]. Follow Up Care 04/22/2023 12:48:03 With:Joann Zamorano Address: [address] [phone]- Business (1) When: Unknown Comments:Call for hospital followup appointment 2-3 weeks With:Claudia Ellington Address: [address] [place] [phone] Business (1) When: Unknown Comments:Call for followup appointment [facility] 05-13-2023 Evaluation + Plan note Extrac gamaliel from: Title:APSO Note-neurology Author:Diann SHER, George lefty Date:05/13/23 The patient is an 17-year-ol d [...] allergic rhinitis) Extracted from: Title:APSO Note Author:Alicia Sidhu. Date:05/12/23 1. Seizures (R56.9: Unspecif ied convulsions) [...] date 05/11/23 16:03:00 EDT, 05/11/23 16:03:00 EDT [facility] Prescription, lurasidone 60 mg oral tablet, Oral, [...] on the hospitalization course and therapeutic plan. [facility]10-10-2023 NoteChief Complaint LTME Reason for Consultation [...] sensation in all 4 extremities Cerebellar exam: Gkxria-xc-xlsm reveals no ataxia. Gait is normal Assessment/Plan [...] 12/04/2021 Immunizations Vaccine Date Status SARS-CoV-2 (COVID-19) mRNAMUL.ORD![id number] 10/03/2022 Recorded meningococcal group B vaccine 07/31/2022 [...] hepatitis A pediatric vaccine (more content not included)...[facility]:Result Comment: Electronically Signed By: [...] sensation in all 4 extremities. Cerebellar exam: Rhacsl-vh-xfmn reveals no ataxia. Gait is normal. Assessment/Plan [...] 12/04/2021 Immunizations Vaccine Date Status SARS-CoV-2 (COVID-19) mRNAMUL.ORD![id number] 10/03/2022 Recorded meningococcal group B vaccine 07/31/2022 [...] 05/28/2005 Recorded haemophilus b (more content not included)...[facility]Comment on above:Result Comment: Electronically Signed By: Diann SHER, Riya\.br\Date and Time Signed: 05/11/23 09:39 EDT\.br\Electronically Co-Signed By: Melecio Rubio MD\.br\Date and Time Co-Signed: 05/12/23 08:36 [id number] NoteBasic Information Admit Date/Time:05/11/2023 07:29 Chief Complaint [...] date 05/11/23 16:03:00 EDT, 05/11/23 16:03:00 EDT [facility] Prescription, lurasidone 60 mg oral tablet, Oral, [...] agreement with POC. P (more content not included)...[facility] HospitalComment on above: Result Comment: Electronically Signed By: Alicia Sidhu\.br\Date and Time Signed: 05/11/23 20:00 EDT\.br\Electronically Co-Signed By: Akosua LR MD\.br\Date and Time Co-Signed: 05/12/23 06:56 [id number] Hospital Discharge instructions Patient Education 03/16/2023 17:50:47 [...] Follow these instructions at home: Medicines Take qtsd-ifm-drfltwx and prescription medicines only as told by [...] and water are not available, use hand receiving inspector. ?Leave stitches (sutures), skin glue, or adhesive [...] provider. Document Revised: 10/24/2021 Document Reviewed: 10/24/2021 IntelliFlo Patient Education 2022 [employer]. 03/16/2023 17:50:47 Head Injury, Adult Head Injury, [...] Ask your health care provider for a axjp-la-buzj plan for gradually returning to activities. Ask [...] your friends, family, a trusted colleague, and dry dip worker about your injury, symptoms, and restrictions. Have them watch for any new or worsening problems. General instructions Take gkle-med-npcrdqy and prescription medicines only as told by [...] provider. Document Revised: 06/01/2020 Document Reviewed: 06/01/2020 IntelliFlo Patient Education 2022 [employer]. Follow Up Care 03/16/2023 16:19:26 With:Claudia Ellington Address: [address] [place], [place] [phone] Business (1) When:03/19/2023 17:36:52 [facility]08-11-2023 Discharge summary Author John Monson [facility] March 13, 2023 9:40am Note Date/Time March 13, 2023 9: 40am [facility] [address] [place] [id number] Discharge Summary Signed Patient: Rose Mary Schneider MR#: [id number] : 2005 Acct:[id number] Age/Sex: 17 / F Adm Date: 3 Loc: Room: [address] [place] [address]: John Monson MD Copies to: [...] admission note),the patient was pink slipped from [employer] and acknowledged she attempted suicide by overdosing [...] No Activity Restrictions Instructions: Depression, Adult (DC), [facility] DC Instructions Prescriptions: Continued levetiracetam [...] 14 Days Qty: 21 0RF Follow Up[facility] [Outside] (Sees Dr. Mackey.) Joann Zamorano DO [Courtesy/Consulting Physician] - (Contact your neurologist with any needs related to history of seizures. ) Claudia Ellington MD [Primary Care Provider] - (Contact your primary care providerwith any medical needs. ) Documented By: John Monson MD 03/13/2338 Signed By: <Electronically signed by John Monson MD> 03/13/2340 [facility] Work Phone: 1(255) 362-828908-10-2023 Progress note Author John Monson [facility] March 12, 2023 1:37pm Note Date/Time March 12, 2023 1: 37pm [facility] [address] [place] [address] Psychiatry Progress Note Signed Patient: Rose Mary Schneider MR#: [id number] : 2005 Acct:[id number] Age/Sex: 17 / F Adm Date: 3 Loc: Room: [address] [place] [address] Type : ADM IN Attending Dr: John [...] therapy Documented By: John Monson MD 03/12/23 115 Signed By: <Electronically signed by John Monson MD> 03/12/23 2534 [facility] Work Phone: 1(860) 789-479008-09-2023 History and physical note Author John Monson [facility] March 11, 2023 1:28pm Note Date/Time March 11, 2023 1:2 8pm [facility] [address] [place] [address] Psychiatry H&P Signed Patient: Rose Mary Schneider MR#: [id number] : 2005 Acct:[id number] Age/Sex: 17 / F Adm Date: 3 Loc: Room: [address] [place] [address] Type: ADM IN Attending Dr: John Monson MD Copies to: MD Claudia Avila MD~ Date of Service: 03/11/2023 HPI History of Present Illness History of present illness: This is a 17-year-old female with reported history of depression and suicidal ideation who presents for inpatient admission due to worsening of suicidal thoughts. Reportedly (per admission note),the patient was pink slipped from [employer] and acknowledged she attempted suicide by overdosing [...] and she stated that she was compliant. [facility] Vaccinated for COVID-19?: Yes Medical History (Updated [...] signed by John Monson MD> 03/11/23 1328 [facility] Work Phone: 1(175) 380-652008-08-2023 Hospital Discharge instructions Patient Education 03/10/2023 12:40:41 [...] services (911 in the [place] Call the [facility] and [facility] services helpline (211 in the [place] Call or text a suicide hotline to speak with a trained counselor. The following suicide hotlines are available in the [place]: ?4-964-860-TALK ( or 101 in the [place] ?2-986-NPDHAVF ( ). ?Text 724758. This is the Crisis Text Line in the [place].S. ? . This is a hotline for Beninese speakers. ? . This is a hotline for TTY users. ?3-345-6-U-ELIZA ( ). This is a hotline for lesbian, schultz, bisexual, transgender, or questioning youth. ?For a list of hotlines in [place], visit suicide.org/hotlines/international/ppgmvh-sjghjgm-nvacjkiu.html Contact a crisis center or a local [...] to anyone or being with other people. ?Ckzw-xb-blwi conversation is best to help them understand [...] physical and a mental health checkup. Take lzex-krk-piegvfc and prescription medicines only as told by [...] information National Suicide Prevention Lifeline: www.suicidepreventionlifeline.org Hopeline: www.hopeline.[employer] Tongan Foundation for Suicide Prevention: www.afsp.org The Eliza Project (for lesbian, schultz, bisexual, transgender, or questioning youth): www.thetrevorproject.org National [place] of Mental Health: www.nimh.nih.gov/health/topics/suicide-prevention Suicide Prevention Resources: afsp.org/akjakfg-yzpebeloor-udcshcbvl Contact a health care provider if: You [...] provider. Document Revised: 02/13/2022 Document Reviewed: 11/28/2021 ElseAvista Patient Education 2022 Elsevier Inc. Follow Up Care 03/07/2023 14:09:50 With:Claudia Ellington Address: [address] [place] [address] Business (1) When: Unknown Comments:Call for followup appointment With:Joann Zamorano DO, [facility] Address: When:2 to 4 weeks [facility]08-08-2023 Evaluation + Plan noteExtracted from: Title:Discharge [...] release With When Contact Information Claudia Ellington [address] [place] [address] Business (1) Additional Instructions: Call for followup [...] this morning are within normal limits Ordered: [facility] Hospital Care/Day Moderate 35 Minutes 74866 2. Hypokalemia, (E87.6: Hypokalemia)Hypokalemia Resolved [facility]Day Moderate 35 Minutes 60737 2. Suicidal ideation (R45.851: Suicidal ideations) No longer expressing suicidal ideation She was pink slipped yesterday; awaiting MHP Ordered: [facility]bs[facility] Hospital Care/Day Moderate 35 Minutes 60746 3. Antihistamines overdose (T45.0X1A: Poisoning by antiallergic and antiemetic drugs, accidental (unintentional), initial encounter) Ordered: [facility] Hospital Care/Day Moderate 35 Minutes 49815 5. Depression (F32.A: Depression, unspecified) Continue fluoxetine Ordered: [facility] Hospital Care/Day Moderate 35 Minutes 08940 6. Seizure (R56.9: Unspecified convulsions) Continue Keppra, Lamictal and lurasidone Seizure precautions Ordered: [facility] Hospital Care/Day Moderate 35 Minutes 89439 7. Obesity (E66.9: Obesity, unspecified) Ordered: [facility] Hospital Care/Day Moderate 35 Minutes 62666 8. On deep vein thrombosis (DVT) prophylaxis (Z79.899: Other termite control service representative (current) drug therapy) Early ambulation with SCDs Ordered: [facility] Hospital Care/Day Moderate 35 Minutes 42548 Orders: Transfer Patient to Transfer Patient to [...] deep vein thrombosis (DVT) prophylaxis (Z79.899: Other skilled nursing (current) drug therapy) Early ambulation and SCDs [...] deep vein thrombosis (DVT) prophylaxis (Z79.899: Other termite control service representative (current) drug therapy) Extracted from: Title:APSO Note [...] overdose with Tylenol/diphenhydramine. Secondary to suicide ideation/attempt. community mental health worker evaluation. Acetaminophen level ekta to 40 but trended down to undetectable. Treating with IVF Thursday. LFTs within normal limit. Repeat LFTs and PT/INR in AM. Ordered: Basic Metabolic Panel Comprehensive Metabolic Panel Consult to Capsule Inspector eGFR Extra Lav Tube Hepatic Function Panel PT [facility] Hospital Care/Day Moderate 35 Minutes 86861 2. Suicidal ideation (R45.851: Suicidal ideations) Supportive care. community mental health worker evaluation. Mental health evaluation in a.m. once medically stable. Ordered: Consult to Capsule Inspector [facility] Hospital Care/Day Moderate 35 Minutes 89136 3. Antihistamines overdose (T45.0X1A: Poisoning by antiallergic and antiemetic drugs, accidental (unintentional), initial encounter) Treated with charcoal. Respiratory status and circulation currently stable. Treated with IV fluid. Bladder scan so far not retaining urine. Ordered: [facility] Hospital Care/Day Moderate 35 Minutes 46440 4. Hypokalemia (E87.6: Hypokalemia) Secondary to gastrointestinal loss and IV fluid. We will replace orally. Ordered: potassium chloride, 40 mEq = 2 tab(s), Tab-ER, Oral, BID for 2 dose(s), Stop date 03/09/23 8:59:00 EDT, Routine, Start date 03/08/23 9:00:00 EDT, 03/08/23 8:36:00 EDT Comprehensive Metabolic Panel [facility] Hospital Care/Day Moderate 35 Minutes 23576 5. Depression (F32.A: Depression, unspecified) On fluoxetine. Ordered: [facility] Hospital Care/Day Moderate 35 Minutes 47953 6. Seizure (R56.9: Unspecified convulsions) No reported seizure. On Lamictal and Keppra. Ordered: lorazepam, 1 mg = 0.5 mL, Injection, IV Push, QID PRN Seizure, Routine, Start date 03/07/23 18:04:00 EDT 7. Obesity (E66.9: Obesity, unspecified) Recommend therapeutic lifestyle modification changes. 8. On deep vein thrombosis (DVT) prophylaxis (Z79.899: Other skilled nursing (current) drug therapy) SCDs. Disposition: Pending mental health evaluation in AM. I discussed the diagnosis and plan of care with the patient at the bedside. Moderate level of MDM based on addressing above issues. This documentation was transcribed using voice recognition software. Several attempts were made to ensure accuracy. However inadvertent computerized arabic teacher errors may be present. Jennifer Retana. Hospitalist. [...] from: Title:Admission H & P Author:DEBBIE MARCANO, Tejasanefo Date:03/07/23 17-year-old female with history of seizure [...] observation. Ordered: Basic Metabolic Panel Consult to Capsule Inspector Hepatic Function Panel Initial Hospital Care/Day High 75 Minutes 72843 2. Suicidal ideation (R45.851: Suicidal ideations) Supportive care. Social work evaluation. Mental health evaluation once medically stable. Ordered: Consult to Capsule Inspector Initial Hospital Care/Day High 75 Minutes 56216 3. Antihistamines overdose (T45.0X1A: Poisoning by antiallergic and antiemetic drugs, accidental (unintentional), initial encounter) Treated with charcoal. Currently sedated with secured and circulation stable. Monitor patient with end-tidal CO2 monitor. We will observe for delirium/agitation and may treat with physostigmine. Bladder scan every 6 hours to check for urinary retention. Ordered: Initial Hospital Care/Day High 75 Minutes 69270 4. Depression (F32.A: Depression, unspecified) On fluoxetine at home. Ordered: Initial Hospital Care/Day High 75 Minutes 69641 5. Seizure (R56.9: Unspecified convulsions) On Keppra and Lamictal. Ordered: lorazepam, 1 mg = 0.5 mL, Injection, IV Push, QID PRN Seizure, Routine, Start date 03/07/23 18:04:00 EDT, 03/07/23 18:04:00 EDT Initial Hospital Care/Day High 75 Minutes 04847 6. Obesity (E66.9: Obesity, unspecified) Recommend therapeutic lifestyle modification changes. 7. 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 Disposition: The patient [...] made to ensure accuracy. However inadvertent computerized arabic teacher errors may be present. Jennifer Retana. Hospitalist. [...] Itching, Routine, Start date 03/07/23 18:02:00 EDT, 08/05/23 18:02:00 EDT hydrALAZINE, 10 mg = 0.5 [...] Vital Signs Weight Extracted from: Title:ED Note Author:Romero MARCANO, Justice Date: 3 1. Intentional acetaminophen overdose (T39.1X2A: [...] Continuous Salicylate Level XR Chest Single View [facility]08-08-2023 NoteAdmission and Discharge Information Admit Date/Time:03/08/2023 17:43 Admitting Physician - Orlando Wade DO Consulting Physician - Melecio Rubio MD Admitting Diagnoses: 1. Poisoning by 4-Aminophenol derivatives, intentional self-harm, initial encounter, 03/09/2023 2. Hypokalemia, 03/09/2023 Discharge Order Date Discharge Patient - Ordered -- 03/10/23 12:22:00 EDT, to [address] [place] [address] Discharge Diagnoses 1. Intentional acetaminophen overdose, Poisoning [...] normal. We did pink slip her for MHP to evaluate her. She is excepted to 1 S. Procedures and Treatment Provided Neurology consultation Services Consulted Consult to Neurology - Ordered -- 03/08/23 13:54:00 EDT, AMS in the setting of OD, Consult and Co-manage Capsule Inspector Consult - Completed -- 03/07/23 17:58:00 EDT, [...] 60.3 % Lymph Auto - 28.7 % [place] Auto - 8.6 % Eos Auto - 1.9 % Basophil Auto - 0.5 % Neutro Absolute - 4.1 E9/L Lymph Absolute - 2.0 E9/L [place] Absolute - 0.6 E9/L Eos Absolute - [...] - 7.2 gm/dL A (more content not included)...[facility]: Result Comment: Electronically Signed By: Lawrence Reveles DO\.br\Date and Time Signed: 03/10/23 12:27 [id number] NoteCRM entered the room to discuss dc planning. PCP, DME and insurance discussed. Patient is alert andinvolved in plan of care. Contact information provided and whiteboard updated. CRM spoke to pt and mother about pink slip. Pt is agreeable to inpt psych stay. Pending MHP eval and bed. [place] slip willexp at 2pm. SW is following up. Ant dc 03/10. CRM to follow. MHP will facilitate transport.[facility] HospitalComment on above:Result Comment: Electronically Signed By: Peyton Mccarty\.br\Date and Time Signed: 03/10/23 12:11 [id number] NoteChief Complaint I over dose of tylenol [...] deep vein thrombosis (DVT) prophylaxis (Z79.899: Other skilled nursing (current) drug therapy) Problem List/Past Medical History [...] 12/04/2021 Immunizations Vaccine Date Status SARS-CoV-2 (COVID-19) mRNAMUL.ORD![id number] 10/03/2022 Recorded (more content not included)...[facility] on above:Result Comment: Electronically Signed By: Mehdi SHER, Irene Villegas\.br\Date and Time Signed: 03/09/23 11:35 EDT\.br\Electronically Co-Signed By: Daniel Reaves DO\.br\Date and Time Co-Signed: 03/09/23 11:52 [id number] Note13:50: Nursing requested patient evaluation at bedside, [...] po bid. EEG ordered, will be completed tomorrowFormerly [facility] above: Result Comment: Electronically Signed By: ADELINE MARCANO, Akosua\.br\Date and Time Signed: 03/08/23 16:06 [id number] NoteChief Complaint patient c/o dizziness, lethargy and [...] 100 pills that are in the bottle. Grannis very dizzy and sleepy was also having [...] 14:43:00) Lymph Auto: 28.7 % (03/07/23 14:43:00) [place] Auto: 8.6 % (03/07/23 14:43:00) Eos Auto: 1.9 % (03/07/23 14:43:00) Basophil Auto: 0.5 % (03/07/23 14:43:00) Neutro Absolute: 4.1 E9/L (03/07/23 14:43:00) Lymph Absolute: 2 E9/L (03/07/23 14:43:00) [place] Absolute: 0.6 E9/L (03/07/23 14:43:00) Eos Absolute: [...] (03/07/23 14:43:00) Bili I (more content not included)...[facility] HospitalComment on above:Result Comment: Electronically Signed By: DEBBIE MARCANO, Jennifer\.br\Date and Time Signed: 03/07/23 18:12 [id number] Hospital Discharge instructions Patient Education 11/13/2022 18:45:15 [...] emergency services (911 in the [place].). The [facility] and human services helpline (211 in the [place] Go to your nearest emergency department. Call a suicide hotline to speak with a trained counselor. The following suicide hotlines are available in the [place]: ?3-532-860-TALK ( ). ?2-748-YWZBECD ( ). ? . This is a hotline for Beninese speakers. ? . This is a hotline for TTY users. ?8-975-9-U-ELIZA ( ). This is a hotline for lesbian, schultz, bisexual, transgender, or questioning youth. ?For a list of hotlines in [place], visit www.suicide.org/hotlines/international/zohwvo-iqgjpkz-oaloatln.html Contact a crisis center or a local [...] day, even if you do notfeel sociable. Urpt-xb-nqao conversation is best to help them understand [...] day can help you feel better. Take adgr-fnl-aogivaq and prescription medicines only as told by [...] National Suicide Prevention Lifeline: www.suicidepreventionlifeline.org Hopeline: www.hopeline.com Tongan Foundation for Suicide Prevention: www.afsp.org The Eliza [...] away. Call emergency services, go to your [facility] or crisis center, or call [...] 2004 Document Revised: 11/10/2019 Document Reviewed: 03/02/2018 IntelliFlo Patient Education 2020 [employer] Follow Up Care 11/13/2022 13:37:26 With:[facility] Address:Unknown When:11/16/2022 18:44:48 Comments:Return should you have worsening symptoms or feel unsafe. Call 911 or mental health counseling at any time. With:Claudia Ellington Address: [address] [place], [place] [phone] Business (1) When:11/16/2022 18:44:44 Comments:Call the office [...] you develop any new or worsening symptoms. [facility]04-13-2023 Evaluation + Plan noteExtracted from: Title:ED Note Author:Wilfredo Villareal DO Date: Suicidal ideation (R45.851: Suicidal ideations) Orders: Acetaminophen Level Automated Diff Beta hCG Qual CBC w/ Auto Diff Communication Order Comprehensive Metabolic Panel Consult to Mental Health Drug Screen Urine ECG Pediatric Ethanol Level Extra Blue Tube Salicylate Level UA With Cult Reflex [facility]03-11-2023 Hospital Discharge instructions Patient Education 10/11/2022 [...] what your health care provider or the sales floor manager recommends for you. What are the [...] Follow these instructions at home: Medicines Take ztjb-rlz-tmhgjqd and prescription medicines only as told by your health care provider. Avoid any medicines that contain acetaminophen for as long as told by your health care provider. Todo this: ?Check all medicine labels for the presence of acetaminophen. Acetaminophen is found in many mzta-jxm-iddgecg and prescription medicines. These include medicines for [...] the hospital. Call: Your local emergency services (778 in the [place] Your local poison control [...] 05/04/2015 Document Revised: 02/18/2019 Document Reviewed: 02/18/2019 IntelliFlo Patient Education 2020 [employer]. Follow Up Care 10/10/2022 21:52:59 With:[facility] Address:Unknown When:10/14/2022 Comments:Please follow-up with your primary care doctor in addition to your counselor in the next 1 to 2 days. Return to the ED for any new or worsening symptoms. With:Claudia Ellington Address: [address] [place] [address] [place] [address] Business (1) When:10/14/2022 [facility]03-10-2023 Evaluation + Plan noteExtracted from: Title:ED [...] Level PT & PTT Rapid COVID Antigen (FT) Salicylate Level U Beta Hcg Qual [facility]03-06-2023 Evaluation + Plan noteExtracted from: Title:ED Note Author:Han Bolaños DO Date :10/06/22 Syncope (R55: Syncope and co llapse) Orders: Automated Diff Basic Metabolic Panel Capillary Glucose POC CBC w/ Auto Diff ECG Pediatric ED Cardiac Monitoring Oxygen Saturation Oxygen Therapy PT & PTT Saline Lock Insert Troponin 0 Hr. U Beta Hcg Qual UA With Cult Reflex XR Chest Single View [facility]03-06-2023 Hospital Discharge instructions Patient Education 10/06/2022 [...] right away. Call your local emergency services (081 in the [place].S.). Donot drive yourself to [...] your urine pale yellow. General instructions Take tdrc-xqm-btidgvt and prescription medicines only as told by [...] right away. Call your local emergency services (681 in the [place].S.). Do not drive yourself [...] 07/20/2006 Document Revised: 07/02/2018 Document Reviewed: 06/28/2018 IntelliFlo Patient Education 2019 [employer] Follow Up Care 10/05/2022 23:50:01 With:Claudia Ellington Address: [address] [place], [place] [phone]- Business (1) When:Within 3 Day(s) [facility]12-07-2022 Hospital Discharge instructions Patient Education 07/08/2022 [...] until he or she recovers. Medicines Give vpsx-mpz-xkoicjw and prescription medicines only as told by [...] check with your local DMV (department of [employer]) to find out about local driving laws. [...] 07/20/2006 Document Revised: 10/07/2019 Document Reviewed: 10/07/2019 Elsevier Patient Education 2019 [employer]. Follow Up Care 07/08/2022 18:51:22 With:Claudia Ellington Address: [address] [place] [address] [place] [address] Business (1) When:07/11/2022 [facility]12-06-2022 Evaluation + Plan note Diagnostic Tests Pending * Rapid COVID Antigen ([facility]) 07/08/22 * Influenza A&B Ag 07/08/22 * Group A Strep by PCR 07/08/22 [facility]12-02-2022 Hospital Discharge instructions Patient Education 07/04/2022 [...] and regular daily exercise. Give your child camh-tma-mezicvn and prescription medicines only as told by [...] to find more information Epilepsy Foundation: www.epilepsy.com [place] Epilepsy Society: www.aesnet.org Contact a health care [...] 10/29/2017 Document Revised: 11/10/2019 Document Reviewed: 10/29/2017 IntelliFlo Patient Education 2020 [employer]. 07/04/2022 19:27:04 Non-Epileptic Seizures, Pediatric Non-Epileptic Seizures, [...] she has a seizure. Give your child iaqu-oaf-jlijjeo and prescription medicines only as told by [...] 10/26/2017 Document Revised: 07/02/2018 Document Reviewed: 10/26/2017 IntelliFlo Patient Education 2020 [employer]. Follow Up Care 07/04/2022 18:04:21 With:Joann Zamorano Address: [facility] [address] [place] [address] Business (1) When:07/07/2022 19:23:00 With:Claudia Rakel Address: [address] [place], [place] [phone]- Business (1) When:07/07/2022 19:22:49 Comments:Follow-up with your primary care provider in 3 to 5 days. If symptoms worsen, do not improve, or new symptoms arise please report back to emergency department for further evaluation. [facility]11-30-2022 Hospital Discharge instructions Patient Education 07/02/2022 [...] she has a seizure. Give your child hoae-mhv-rnvhico and prescription medicines only as told by [...] 10/26/2017 Document Revised: 07/02/2018 Document Reviewed: 10/26/2017 [employer] Patient Education 2020 [employer]. 07/02/2022 16:03:45 Helping Your Child Manage Non-Epileptic [...] and regular daily exercise. Give your child [id number] and prescription medicines only as told by [...] to find more information Epile[employer] Foundation: www.epilepsy.com [place] [employer]: www.aesnet.org Contact a health care [...] 10/29/2017 Document Revised: 11/10/2019 Document Reviewed: 10/29/2017 [employer] Patient Education 2020 [employer]. Follow Up Care 07/02/2022 13:18:31 With:Joann Zamorano Address:Unknown When:07/05/2022 15:30:57 Comments:Follow-up with Dr. Zamorano for further evaluation of your seizure-like activity. With:Claudia Ellington Address: [address] [place] [address] Business (1) When:07/05/2022 15:30:49 Comments:Follow-up with your primary care provider in 3 to 5 days. If symptoms worsen, do not improve, or new symptoms arise please report back to emergency department for further evaluation. [facility]11-30-2022 Evaluation + Plan noteExtracted from: Title:ED Note Author:Alexandru Barajas PA-C te:07/02/22 Seizure-like activity (R56.9 : Unspecified convulsions) Orders: Automated Diff Basic Metabolic Panel CBC w/ Auto Diff [facility] No data available for this section [facility] Future Appointments Appointment Date:02/16/2024 10:30:00 AM Scheduled Provider: Location:.[facility] Appointment Type:US Abdominal/Pelvis (FT) Future Scheduled Tests Radiology* US Gallbladder 02/16/24 * CT Abdomen w/ Contrast 02/16/24 [facility] [place] Evaluation noteNo assessment information available [facility] Work Phone: Evaluation note* Diagnosis Onset Date Resolution Status Depression acute Suicidal ideations acute [facility] Work Phone: Evaluation note* Diagnosis Macromastia- Primary Hypertrophy of breast Thoracic spine pain Pain in thoracic spine [facility] No data available for this section [facility] Additional Instructions Regular Diet [facility] Work [facility]: Progress note No data available for this section [facility] Summary Purpose Family History No Family [...] No data available for this section No data available for this section No data available for this section No Family History Records FoundNo Family History Records Found No data available for this section No data available for this section No [...] section and content) DATE CREATED AUTHOR 09/20/2018 [facility] DATE CREATED AUTHOR AUTHOR'S ORGANIZ ATION 10/27/2019 [employer] DATE CREATED AUTHOR AUTHOR'S ORGANIZ ATION 11/08/2022 [facility] DATE CREATED AUTHOR AUTHOR'S ORGANIZ ATION 03/11/2023 [facility] DATE CREATED AUTHOR AUTHOR'S ORGANIZ ATION 07/02/2023 [facility] DATE CREATED AUTHOR AUTHOR'S ORGANIZ ATION 01/13/2024 [facility] DATE CREATED AUTHOR AUTHOR'S ORGANIZ ATION 01/15/2024 [facility] DATE CREATED AUTHOR AUTHOR'S ORGANIZ ATION 01/16/2024 [facility] DATE CREATED AUTHOR AUTHOR'S ORGANIZ ATION 02/24/2024 [facility] DATE CREATED AUTHOR AUTHOR'S ORGANIZ ATION 03/03/2024 [facility] DATE CREATED AUTHOR AUTHOR'S ORGANIZ ATION 03/04/2024 [facility] DATE CREATED AUTHOR AUTHOR'S ORGANIZ ATION 03/05/2024 [facility] DATE CREATED AUTHOR AUTHOR'S ORGANIZ ATION 03/09/2024 [facility] Care Team (unrecognized sect ion and content) Team Status: Inactive Member Role Status Dates Claudia Ellington MD Primary Care Provider, Attending Pr omer Active Team Status: Active Member Role Status Dates Claudia Ellington MD Primary Care Provider Active Team Status: Inactive Member Role Status Dates Claudia Ellington MD Primary Care Provider Active John Monson MD Admit Provider, Attending Provider Active Shop Coordinator Relationship Specialty Start Date End Date Claudia Ellington MD [address] [id number] PCP - General Family Medicine 06/10/23 Goals (unrecognized section and content) Goals may be documented in a n alternate section Reason for Visit (unrecogniz ed section and content) Reason Comments Breast Reduction Back pain and hard t o get up out of bed Specialty Diagnoses / Procedures Referred By Contmilton t Referred To Contact Plastic Surgery Diagnoses breast reduction Procedures NEW PATIENT - Claudia Santacruz MD [address] [place] [address] Valorie Hansen MD [address] [place], [place] [id number] Referral ID Status Reason Start Date Expiration Date V isits Requested Visits Authorized [id number] Pending Review 06/30/2023 07/24/2024 1 1 FOR [...] BE BASED ON THE PRIMARY CLINICAL RECORDS. [facility] [employer] [facility]. provides no warranty or guarantee of the accuracy or completeness of information in this document.
--- OUTSIDE RECORDS SUMMARY | 2024-03-11 10:00 | XMS_ITS | CCD ---
Author Organization [facility] CliniSyms Care Team Providers Care Electronic Equipment Set Up Operator Name Role Phone Martina Bedolla Attending Unavailable [...] Unavailable MD Claudia Ellington Primary Care Provider [phone] MD John Monson Admit Provider MD John Monson Attending Provider Claudia Ellington MD Primary Care Provider [phone] VALORIE HANSEN Attending Unavailable RAKEL CLAUDIA M Primary Care Unavailable RAKEL CLAUDIA Pike Referring Unavailable Lawrence Reveles Attending Unavailable [place], Melecio Consulting Unavailable Jennifer RETANA Admitting Unavailable Ramiro, MD Majano Consulting Unavailable [place], Melecio Consulting Unavailable [place], Melecio Consulting Unavailable [place], Melecio Consulting Unavailable [place], Melecio Consulting Unavailable [place], Melecio Consulting Unavailable [place], Melecio Consulting Unavailable [place], Melecio Consulting Unavailable Radha Whipple Attending Unavailable Sole, Radha Attending Unavailable CHERYL QUIROZ Referring Unavailabl e Akosua LR Admitting Unavailable AMIAkosua Stokes Attending Unavailable Ramiro, Melecio Consulting Unavailable Ramiro, MD Majano Consulting Unavailable [place], Melecio Consulting Unavailable [place], Melecio Consulting Unavailable [place], Melecio Consulting Unavailable [place], Melecio Consulting Unavailable [place], Melecio Consulting Unavailable [place], Melecio Consulting Unavailable [place], Melecio Consulting Unavailable MISTY MACKEY Attending Unavailable [...] hours as needed for pain and pain Caldwell 325 mg-5 mg oral tablet 1 tab(s), [...] Pain, # 30 tab(s), Refills(s) 0, Pharmacy: [facility]/pharmacy #[id number], 165.1, cm, 01/13/24 18:35:00 EDT, [...] BID, # 60 tab(s), Refills(s) 0, Pharmacy: [facility]/pharmacy #[id number], 165.1, cm, 05/11/23 8:01:00 EDT, [...] anxiety, # 15 tab(s), Refills(s) 0, Pharmacy: [facility]/pharmacy #[id number], 165, cm, 07/04/22 18:11:00 EST, [...] (1 source) Polyene Antifungal Start: 06-16-2023 nystatin [id number] UNIT/GM Powder powder Apply 1 Application topically. 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 No Oral contrast amount in ml's: [address] [facility] CHEMISTRYOrdered By: SYSTEM SYSTEM on 03-03-2024 [...] [Mass fraction] 5.3 % Normal <=5.9% [facility] ChemAutoSS Glu Fastingon 03-03-2024 Glucose [Mass/Vol] 91 mg/dL Normal 55-[address] [facility] Comment on above: Performed By: #### 2 [id number] #### [facility] [address] [place] [address] [id number] 03-03-2024 HbA1c (Bld) [Mass fraction] 5.3 % Normal <=5.[address] [facility] Comment on above: Performed By: #### 7 [id number] #### [facility] [address] [place] [address] Lipid Panelon 03-03-2024 Cholesterol [Mass/Vol] 225 mg/dL High 120-200 [facility] Comment on above: Performed By: #### 2 [id number] #### [facility] [address] [place] [address] Cholesterol in HDL [Mass/Vol] 53 mg/dL Invalid Interpretation Code [facility] Comment on above: Result Comment: '>= 60 LOW RISK' '<= 40 HIGH RISK' Performed By: #### 2 [id number] #### [facility] [address] [place] [address] Cholesterol in LDL [Mass/Vol] 165 mg/dL High <=[address] [facility] Comment on above: Performed By: #### 2 [id number] #### [facility] [address] [place] [address] Cholesterol in VLDL [Mass/Vol] 35 mg/dL Normal 7-[address] [facility] Comment on above: Performed By: #### 2 [id number] #### [facility] [address] [place] [address] Triglyceride [Mass/Vol] 173 mg/dL High <=[address] [facility] Comment on above: Performed By: #### 2 [id number] #### [facility] [address] [place] [address] Vitamin D 25 Hydroxyon 03-03 25-hydroxyvitamin D3 [Mass/Vol] 18.5 ng/mL Low 30.0-100.[address] [facility] Comment on above: Performed By: #### 5 [id number] #### [facility] [address] [place] [address] US Gallbladderon 02-17-2024 US Gallbladder Exam Date/Time: [...] Devine Transcribed by: GARTH Technologist: LI Iqbal [facility] General Surgery Office/Clini c Noteon 02-09-2024 General Surgery Office/Clinic Note General Surgery Office/Clinic Note 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 female here for surgical consult Dr. Hernandez referring Patient has a hx of pancreatitis and family hx of pancreatitis. Last flare up CT abd/pel done 01/13/2024 She is having right sided pain History of Present Illness Consent: The patient or their guardian verbally consented to allow Rhina [employer] to record this visit. Rose Mary [...] with voice recognition artificial intelligence software, specifically Kuli Kuli, [employer] (HDS) and or [employer]. Substitutions may have occurred due to the inherent limitations of voice recognition and artificial intelligence software. ATTESTATION: Documentation services were performed after patient or guardian consented to allow Collaaj to record this visit. CORINNE specialist physician and provider reviewed before signing. CORINNE: Martin [...] mg Cap 08/04 (more content not included)... [facility] Comment on above: Result Comment: Elec [...] (APAP/butalbital/caffeine 325 mg-50 mg-40 mg Tab) acetaminophen-hydrocodone (Caldwell 325 mg-5 mg oral tablet) cetirizine (cetirizine [...] Ambulatory, Reason: Pancreatitis, No, No, Acute pancreatitis [facility] Gastroenterology Office/Clin ic Noteon 01-22-2024 Gastroenterology Office/Clinic Note Chief Complaint follow up to er, abdominal pain, pancreatitis HPI Staff This is a 18 year old female who presents today for a follow up from [facility] ER on 01/12/2024 and 01/13/2024 abdominal pain, generalized abd pain [facility] ED: 01/13/2024 Chief Complaint seen here yesterday told she was just shy of pancreatitis. states abdominal pain worse. 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 Discharge Prescription List Prescriptions Caldwell 325 mg-5 mg oral tablet, 1 tab(s), Oral, q6hr, PRN Pepcid AC 10 mg oral tablet, 10 mg= 1 tab(s), Oral, BID, PRN [facility] ED: 01/12/2024 Chief Complaint abd pain all [...] 84.7 fL (01/13/24) Chloride: 105 mmol/L (01/13/24) Chicot Absolute: 0.5 E9/L (01/13/24) CO2: 27 mmol/L (01/13/24) Chicot Auto: 7.4 % (01/13/24) Creatinine: 0.8 mg/dL [...] soft, nontender (more content not included)... 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 Patient will be sent home with pain [...] Nausea/Vomiting, # 12 tab(s), Refills(s) 0, Pharmacy: [facility]/pharmacy #[id number], 165.1, cm, 01/12/24 15:00:00 EDT, Height/Length Dosing, 117.7, kg, 01/12/24 15:00:00 EDT, Weight Dosing 3. Elevated lipase (R74.8: Abnormal levels of other serum enzymes) Ordered: tram (more content not included)... Normal [facility] Comment on above: Result Comment: Elec [...] Contrast amount in ml's: 100 Normal [facility] ED Note-Physicianon 01-14-20 ED Note-Physician Basic Information Time Seen: Mirella Camilo PA-C 01/13/2024 18:36 Chief Complaint seen here yesterday told she was just shy of pancreatitis. states abdominal pain worse. 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 The patient is being discharged with Caldwell and Pepcid for pain management. Patient states [...] Pain, # 30 tab(s), Refills(s) 0, Pharmacy: [facility]/pharmacy #[id number], 165.1, cm, 01/13/24 18:35:00 EDT, [...] Discharge Disposition home Discharge Prescription List Prescriptions Caldwell 325 mg-5 mg oral tablet, 1 tab(s), Oral, q6hr, PRN Pepcid AC 10 mg oral tablet, 10 mg= 1 tab(s), Oral, BID, PRN Follow- (more content not included)... Normal [facility] Comment on above: Result Comment: Elec tronically Signed By: Mirella Camilo PA-C\.br\Date and Time Signed: 01/13/24 21:12 EDT\.br\Electronically Co-Signed By: Mirella Camilo PA-C\.br\Date and Time Co-Signed: 01/14/24 00:04 EDT\.br\Electronically Co-Signed By: Migue Farrell M.D.\.br\Date and Time Co-Signed: 01/14/24 07:02 EDT BMPon 01-13-2024 Anion gap [Moles/Vol] 9 mmol/L Normal 6-16 [facility] Comment on above: Performed By: #### 2 [id number] #### [facility] [address] [place] [address] Calcium [Mass/Vol] 8.6 mg/dL Low 8.9-11.[address] [facility] Comment on above: Performed By: #### 2 [id number] #### [facility] [address] [place] [address] Chloride [Moles/Vol] 105 mmol/L Normal 101-111 [facility] Comment on above: Performed By: #### 2 [id number] #### [facility] [address] [address] CO2 [Moles/Vol] 27 mmol/L Normal 21-[address] [facility] Comment on above: Performed By: #### 2 625754 #### [facility] [address] [place] [address] Creatinine [Mass/Vol] 0.8 mg/dL Normal 0.5-1.3 [facility] Comment on above: Performed By: #### 2 [id number] #### [facility] [address] [place] [address] Glucose [Mass/Vol] 96 mg/dL Normal 55-[address] [facility] Comment on above: Performed By: #### 2 141152 #### [facility] [address] [place] [address] Potassium [Moles/Vol] 3.6 mmol/L Normal 3.5-5.3 [facility] Comment on above: Performed By: #### 2 628783 #### [facility] [address] [place] [address] Sodium [Moles/Vol] 137 mmol/L Normal 135-[address] [facility] Comment on above: Performed By: #### 2 231911 #### [facility] [address] [place] [address] Urea nitrogen [Mass/Vol] 9 mg/dL Normal 5-[address] [facility] Comment on above: Performed By: #### 2 110057 #### [facility] [address] [place] [address] Urea nitrogen/Creatinine [Mass ratio] 11 No Units Normal 10-[address] [facility] Comment on above: Performed By: #### 2 601074 #### [facility] [address] [place] [address] CBC w/ Auto Diffon 4 Basophils/100 WBC (Bld) 0.6 % Normal 0.0-2.[address] [facility] Comment on above: Performed By: #### 2 365616 #### [facility] [address] [place] [address] Basophils/Leukocytes Auto (Bld) [Pure # fraction] 0.0 E9/L Normal 0.0-0.[address] [facility] Comment on above: Performed By: #### 2 566946 #### [facility] [address] [place] [address] Eosinophils (Bld) [#/Vol] 0.2 E9/L Normal 0.0-0.[address] [facility] Comment on above: Performed By: #### 2 044093 #### [facility] [address] [place] [address] Eosinophils/100 WBC (Bld) 2.6 % Normal 0.0-8.[address] [facility] Comment on above: Performed By: #### 2 437030 #### [facility] [address] [place] [address] Erythrocyte distribution width (RBC) [Ratio] 13.8 % Normal 10.9-14.[address] [facility] Comment on above: Performed By: #### 2 038100 #### [facility] [address] [place] [address] Hematocrit (Bld) [Volume fraction] 35.6 % Normal 34.0-46.[address] [facility] Comment on above: Performed By: #### 2 493799 #### [facility] [address] [place] [address] Hemoglobin (Bld) [Mass/Vol] 11.8 g/dL Low 12.0-16.[address] [facility] Comment on above: Performed By: #### 2 242203 #### [facility] [address] [place] [address] Lymphocytes (Bld) [#/Vol] 2.9 E9/L Normal 1.0-4.[address] [facility] Comment on above: Performed By: #### 2 535703 #### [facility] [address] [place] [address] Lymphocytes/100 WBC (Bld) 40.4 % Normal 14.0-50.[address] [facility] Comment on above: Performed By: #### 2 886656 #### [facility] [address] [place] [address] MCH (RBC) [Entitic mass] 28.0 pg Normal 27.0-34.[address] [facility] Comment on above: Performed By: #### 2 559557 #### [facility] [address] [place] [address] MCHC (RBC) [Mass/Vol] 33.1 g/dL Normal 31.4-36.0 [facility] Comment on above: Performed By: #### 2 459783 #### [facility] [address] [place] [address] MCV (RBC) [Entitic vol] 84.7 fL Normal 80.0-100.[address] [facility] Comment on above: Performed By: #### 2 057509 #### [facility] [address] [place] [address] Monocytes (Bld) [#/Vol] 0.5 E9/L Normal 0.2-1.[address] [facility] Comment on above: Performed By: #### 2 737897 #### [facility] [address] [place] [address] Neutrophils (Bld) [#/Vol] 3.5 E9/L Normal 2.0-7.[address] [facility] Comment on above: Performed By: #### 2 606445 #### [facility] [address] [place] [address] Neutrophils/100 WBC (Bld) 49.0 % Normal 36.0-75.[address] [facility] Comment on above: Performed By: #### 2 948754 #### [facility] [address] [place] [address] Platelet mean volume (Bld) [Entitic vol] 8.1 fL Normal 6.4-10.[address] [facility] Comment on above: Performed By: #### 2 095371 #### [facility] [address] [place] [address] Platelets (Bld) [#/Vol] 394.0 E9/L Normal 150.0-500.[address] [facility] Comment on above: Performed By: #### 2 986644 #### [facility] [address] [place] [address] RBC (Bld) [#/Vol] 4.2 E12/L Low 4.3-5.[address] [facility] Comment on above: Performed By: #### 2 290247 #### [facility] [address] [place] [address] WBC corrected for nucl RBC Auto (Bld) [#/Vol] 7.1 E9/L Normal 4.0-11.0 [facility] Comment on above: Performed By: #### 2 159249 #### [facility] [address] [place] [address] CHEMISTRYOrdered By: SYSTEM SYSTEM on 01-13-2024 Albumin [...] Consent for Treatmenton 01-01 Consent for Treatment [id number]#[id number] Normal [facility] Discharge Instructionson Discharge Instructions [id number] Normal [facility] ED Clinical Summaryon 2023 ED Clinical Summary (Inserted Image. Nida ble to display) [place] [id number] ED Clinical Summary Person Information Name: ROSE MARY SCHNEIDER/[facility] Age: 18 Years : 2005 Sex: Female Language: [place] Citizen PCP: Claudia Ellington MD Marital Status: Single Phone: [phone] Visit Id: Visit Reason: Abdominal pain; AB [...] 01/13/2024 21:12:34 01/13/2024 21:12:34 01/13/2024 21:12:34 ADDRESS: [address] [place] [phone] PHYS DOC NOTES: MEDICAL INFORMATION: Prescriptions Given: New Medications [facility]/pharmacy #[id number], [address] [place], [place] [id number], [phone] acetaminophen-hydrocodone (Caldwell 325 mg-5 mg oral tablet) 1 Tablets [...] 0. PATIENT EDUCATION INFORMATION: Instructions: Acute Pancreatitis, Rjgg-ff-Mhsb Follow up: With: Address: When: Zenon Hernandez [address] [place] [address] [address] [place] [id number] [phone] [place] (1) In 3 days 01/16/2024 Comments: Call to schedule an appointment with the demonstrator knitting for further management of care With: Address: When: Claudia Rakel [employer] [place] [phone] [place] (1) In 3 days DIAGNOSIS: Acute pancreatitis; Mild nausea Normal [facility] ED Patient Education Noteon 01-13-2024 ED [...] these instructions at home: Medicines ? Take dvpq-ewj-uwwsjuy and prescription medicines only as told by [...] provider. Document Revised: 06/10/2022 Document Reviewed: 06/10/2022 [employer] Patient Education ? [address] [employer] [facility] ED Patient Summaryon 024 ED Patient Summary (Inserted Image. Nida ble to display) [place] [id number] Patient Discharge Instructions Person Information Name: ROSE MARY SCHNEIDER Age: 18 Years Arrival Date: 01/13/2024 18:21:08 Discharge Diagnosis: Acute pancreatitis; Mild nausea Primary Care Physician: Claudia Ellington MD Provider Information Primary Provider: oK Draper DO Advanced Casket Assembler:Mirella Camilo PA-C The exam and treatment you received in the Emergency Department were for an urgent problem and are not intended as complete care. It is important that you follow up with a doctor, nurse practitioner, or physician?s health care legal assistant for ongoing care. If your symptoms become [...] Follow-up Instructions: With: Address: When: Zenon Hernandez [address] [place] [address], [address] [place] [phone] Business (1) In 3 days 01/16/2024 Comments: Call to schedule an appointment with the demonstrator knitting for further management of care With: Address: When: Claudia Ellington [address] [place] [address], [facility] [place] [address] Business (1) In 3 days In the event that this physician does not participate in your insurance network, please consult with your insurance company to find a nearby participating provider. Patient Education Materials: Acute Pancreatitis, Ezkn-fd-Gzqx A MESSAGE TO ALL PATIENTS REGARDING OPIOIDS PRESCRIPTION OPIOIDS: WHAT YOU NEED TO KNOW Prescription opioids can be used to help relieve sohmkuxi-ur-rjymfy pain and are often prescribed following a [...] and Drug Administration (www.fda.gov/Drugs/Resour cesForYou). ? Visit www.Adteractive (more content not included)... Normal [facility] HEMATOLOGYOrdered By: SYSTEM SYSTEM on 01-13-2024 [...] 01-13-2024 Albumin [Mass/Vol] 3.4 g/dL Normal 3.3-5.[address] [facility] Comment on above: Performed By: #### 2 [id number] #### [facility] [address] [place] [address] Albumin/Globulin (S) [Mass conc ratio] 1.0 Low 1.1-2.[address] [facility] Comment on above: Performed By: #### 2 [id number] #### [facility] [address] [place] [address] ALP [Catalytic activity/Vol] 45 Int._Unit/L Normal 21-[address] [facility] Comment on above: Performed By: #### 2 082930 #### [facility] [address] [place] [address] ALT No additional P-5'-P [Catalytic activity/Vol] 11 Int._Unit/L Normal 6-[address] [facility] Comment on above: Performed By: #### 2 781773 #### [facility] [address] [place] [address] AST [Catalytic activity/Vol] 12 Int._Unit/L Normal 5-[address] [facility] Comment on above: Performed By: #### 2 357749 #### [facility] [address] [place] [address] Bilirubin [Mass/Vol] 0.3 mg/dL Normal 0.0-1.1 [facility] Comment on above: Performed By: #### 2 071049 #### [facility] [address] [place] [address] Bilirubin.direct [Mass/Vol] 0.0 mg/dL Normal 0.0-0.[address] [facility] Comment on above: Performed By: #### 2 973894 #### [facility] [address] [place] [address] Bilirubin.indirect [Mass or moles/Vol] 0.3 mg/dL Normal 0.1-0.[address] [facility] Comment on above: Performed By: #### 2 246482 #### [facility] [address] [place] [address] Globulin (S) [Mass/Vol] 3.3 g/dL Normal 1.4-4.[address] [facility] Comment on above: Performed By: #### 2 950108 #### [facility] [address] [place] [address] Protein [Mass/Vol] 6.7 g/dL Normal 6.0-7.[address] [facility] Comment on above: Performed By: #### 2 091649 #### [facility] [address] [place] [address] Lipase Levelon 01-13-2024 Lipase [Catalytic activity/Vol] 144 U/L High 13-[address] [facility] Comment on above: Performed By: #### 2 218003 #### [facility] [address] [place] [address] RAD - Preliminary Cat Scan R eporton 01-13-2024 RAD - Preliminary Cat Scan Report [id number]#1.00TIFF Normal [facility] UA with Cult Rflxon 01-13-20 24 Bilirubin Ql (U) Negative Normal Negative [facility] Comment on above: Performed By: #### 4 [id number] ####[place] [id number] Clarity (U) Clear Normal Clear [facility] Comment on above: Performed By: #### 4 [id number] ####[facility] [address] [place] [address] Color (U) Colorless Abnormal Yellow [facility] Comment on above: Result Comment: Micr oscopic readings are only performed on those samples that meet specific criteria set forth by [facility]. Performed By: #### 4 [id number] ####[place] [address] [place] [address] Epithelial cells.squamous Auto (Urine sed) [#/Area] 0-2 Invalid Interpretation Code [facility] Comment on above: Performed By: #### 4 [id number] ####[facility] [address] [place] [address] Glucose Ql (U) Negative Normal Negative [facility] Comment on above: Performed By: #### 4 [id number] ####[place] [address] [place] [address] Hemoglobin Auto test strip (U) [Mass/Vol] 1+ mg/dL Abnormal Negative [facility] Comment on above: Performed By: #### 4 [id number] ####[facility] [address] [place] [address] Ketones Auto test strip Ql (U) Negative Normal Negative [facility] Comment on above: Performed By: #### 4 [id number] ####[facility] [address] [facility] [place] [address] Leukocyte esterase Auto test strip Ql (U) Negative Normal Negative [facility] Comment on above: Performed By: #### 4 [id number] ####[address] [place] [address] Mucus Auto Ql (U) Negative Normal Negative [facility] Comment on above: Performed By: #### 4 [id number] ####[address] [address] Nitrite Auto test strip Ql (U) Negative Normal Negative [facility] Comment on above: Performed By: #### 4 [id number] ####[address] [place] [address] pH (U) 6.5 [pH] Invalid Interpretation Code 5.0-9.[address] [facility] Comment on above: Performed By: #### 4 [id number] ####[address] [place] [address] Protein Ql (U) Negative Normal Negative [facility] Comment on above: Performed By: #### 4 [id number] ####[place] [address] [facility] [place] [address] RBC Ql (U) 0-3 Normal 0-[address] [facility] Comment on above: Performed By: #### 4 [id number] ####[address] [address] Specific gravity (U) [Rel density] 1.024 Invalid Interpretation Code 1.005-1.[address] [facility] Comment on above: Performed By: #### 4 [id number] ####[address] [place] [address] Urobilinogen (U) [Mass/Vol] Negative Normal Negative [facility] Comment on above: Performed By: #### 4 [id number] ####[facility] [address] [place] [address] WBC Auto (Urine sed) [#/Area] 0-5 Normal 0-[address] [facility] Comment on above: Performed By: #### 4 [id number] ####[facility] [address] [place] [id number] Type of Urine collection method Clean Catch Normal [facility] Comment on above: Performed By: #### 4 [id number] ####[address] [facility] [address] [place], [place] [id number] URINALYSISOrdered By: SYSTEM SYSTEM on 01-13-2024 Bilirubin Ql (U) Negative Normal Negativemg/ dL [facility] UA Auto SS Clarity (U) Clear (01/13/24 7:41 PM) Normal Clear [facility] UA Auto SS Color (U) Colorless 1 *ABN* (01/13/24 7:41 PM) Invalid Interpretation Code Yellow [facility] UA Auto SS Comment on above: Interpretive Data: M icroscopic readings are only performed on those samples that meet specific criteria set forth by [facility]. Epithelial cells.squamous Auto (Urine sed) [...] (U) 0-3 graded/HPF Normal 0-3graded/H PF [facility] UA Auto SS Specific gravity (U) [Rel density] 1.024 *NA* (01/13/24 7:41 PM) Invalid Interpretation Code 1.005 - 1.030 [facility] UA Auto SS Urobilinogen (U) [Mass/Vol] Negative Normal Negativemg/ dL [facility] UA Auto SS WBC Auto (Urine sed) [#/Area] 0-5 graded/HPF Normal 0-5graded/H PF [facility] UA Auto SS URINALYSISOrdered By: Mirella Camilo on 01-13-2024 UA Spec Desc Clean Catch (01/13/24 7:41 PM) Normal [facility] UA Auto SS Work Phone: eGFRon 01-13-2024 eGFR 109 mL/min/1.73 m2 Normal >=[address] [facility] Comment on above: Order Comment: Order added by Discern Expert. Performed By: #### 1 [id number] #### [facility] [address] [place] [address] CBC w/ Auto Diffon 4 Basophils/100 WBC (Bld) 0.4 % Normal 0.0-2.[address] [facility] Comment on above: Performed By: #### 2 [id number] #### [facility] [address] [place] [address] Basophils/Leukocytes Auto (Bld) [Pure # fraction] 0.0 E9/L Normal 0.0-0.[address] [facility] Comment on above: Performed By: #### 2 [id number] #### [facility] [address] [place] [address] Eosinophils (Bld) [#/Vol] 0.2 E9/L Normal 0.0-0.[address] [facility] Comment on above: Performed By: #### 2 [id number] #### [facility] [address] [place] [address] Eosinophils/100 WBC (Bld) 2.3 % Normal 0.0-8.[address] [facility] Comment on above: Performed By: #### 2 [id number] #### [facility] [address] [place] [address] Erythrocyte distribution width (RBC) [Ratio] 13.9 % Normal 10.9-14.[address] [facility] Comment on above: Performed By: #### 2 [id number] #### [facility] [address] [place] [address] Hematocrit (Bld) [Volume fraction] 37.3 % Normal 34.0-46.[address] [facility] Comment on above: Performed By: #### 2 643180 #### [facility] [address] [place] [address] Hemoglobin (Bld) [Mass/Vol] 12.7 g/dL Normal 12.0-16.[address] [facility] Comment on above: Performed By: #### 2 [id number] #### [facility] [address] [place] [address] Lymphocytes (Bld) [#/Vol] 2.3 E9/L Normal 1.0-4.[address] [facility] Comment on above: Performed By: #### 2 [id number] #### [facility] [address] [place] [address] Lymphocytes/100 WBC (Bld) 33.8 % Normal 14.0-50.[address] [facility] Comment on above: Performed By: #### 2 296111 #### [facility] [address] [place] [address] MCH (RBC) [Entitic mass] 28.5 pg Normal 27.0-34.[address] [facility] Comment on above: Performed By: #### 2 363243 #### [facility] [address] [place] [address] MCHC (RBC) [Mass/Vol] 34.0 g/dL Normal 31.4-36.0 [facility] Comment on above: Performed By: #### 2 025256 #### [facility] [address] [place] [address] MCV (RBC) [Entitic vol] 83.9 fL Normal 80.0-100.[address] [facility] Comment on above: Performed By: #### 2 652710 #### [facility] [address] [place] [address] Monocytes (Bld) [#/Vol] 0.6 E9/L Normal 0.2-1.[address] [facility] Comment on above: Performed By: #### 2 346989 #### [facility] [address] [place] [address] Neutrophils (Bld) [#/Vol] 3.8 E9/L Normal 2.0-7.[address] [facility] Comment on above: Performed By: #### 2 388346 #### [facility] [address] [place] [address] Neutrophils/100 WBC (Bld) 55.0 % Normal 36.0-75.[address] [facility] Comment on above: Performed By: #### 2 147062 #### [facility] [address] [place] [address] Platelet 454.0 E9/L Normal 150.0-500.[address] [facility] Comment on above: Performed By: #### 2 638019 #### [facility] [address] [place] [address] Platelet mean volume (Bld) [Entitic vol] 7.5 fL Normal 6.4-10.[address] [facility] Comment on above: Performed By: #### 2 153400 #### [facility] [address] [place] [address] RBC (Bld) [#/Vol] 4.4 E12/L Normal 4.3-5.[address] [facility] Comment on above: Performed By: #### 2 [id number] #### [facility] [address] [place] [address] WBC corrected for nucl RBC Auto (Bld) [#/Vol] 6.9 E9/L Normal 4.0-11.[address] [facility] Comment on above: Performed By: #### 2 546087 #### [facility] [address] [place] [address] CHEMISTRYOrdered By: SYSTEM SYSTEM on 01-12-2024 Albumin [...] 01-12-2024 Albumin [Mass/Vol] 3.7 g/dL Normal 3.3-5.[address] [facility] Comment on above: Performed By: #### 2 531373 #### [facility] [address] [place] [address] Albumin/Globulin (S) [Mass conc ratio] 1.0 Low 1.1-2.[address] [facility] Comment on above: Performed By: #### 2 203034 #### [facility] [address] [place] [address] ALP [Catalytic activity/Vol] 49 Int._Unit/L Normal 21-[address] [facility] Comment on above: Performed By: #### 2 418012 #### [facility] [address] [place] [address] ALT No additional P-5'-P [Catalytic activity/Vol] 12 Int._Unit/L Normal 6-[address] [facility] Comment on above: Performed By: #### 2 [id number] #### [facility] [address] [place] [address] Anion gap [Moles/Vol] 9 mmol/L Normal 6-16 [facility] Comment on above: Performed By: #### 2 466396 #### [facility] [address] [place] [address] AST [Catalytic activity/Vol] 12 Int._Unit/L Normal 5-[address] [facility] Comment on above: Performed By: #### 2 176961 #### [facility] [address] [place] [address] Bilirubin [Mass/Vol] 0.3 mg/dL Normal 0.0-1.1 [facility] Comment on above: Performed By: #### 2 157202 #### [facility] [address] [place] [address] Calcium [Mass/Vol] 9.2 mg/dL Normal 8.9-11.[address] [facility] Comment on above: Performed By: #### 2 290079 #### [facility] [address] [place] [address] Chloride [Moles/Vol] 105 mmol/L Normal 101-111 [facility] Comment on above: Performed By: #### 2 363442 #### [facility] [address] [place] [address] CO2 [Moles/Vol] 27 mmol/L Normal 21-[address] [facility] Comment on above: Performed By: #### 2 603244 #### [facility] [address] [place] [address] Creatinine [Mass/Vol] 0.7 mg/dL Normal 0.5-1.3 [facility] Comment on above: Performed By: #### 2 122908 #### [facility] [address] [place] [address] Globulin (S) [Mass/Vol] 3.7 g/dL Normal 1.4-4.[address] [facility] Comment on above: Performed By: #### 2 322474 #### [facility] [address] [place] [address] Glucose [Mass/Vol] 89 mg/dL Normal 55-[address] [facility] Comment on above: Performed By: #### 2 575427 #### [facility] [address] [place] [address] Potassium [Moles/Vol] 3.7 mmol/L Normal 3.5-5.3 [facility] Comment on above: Performed By: #### 2 225376 #### [facility] [address] [place] [address] Protein [Mass/Vol] 7.4 g/dL Normal 6.0-7.[address] [facility] Comment on above: Performed By: #### 2 275771 #### [facility] [address] [place] [address] Sodium [Moles/Vol] 137 mmol/L Normal 135-145 [facility] Comment on above: Performed By: #### 2 351344 #### [facility] [address] [place] [address] Urea nitrogen [Mass/Vol] 8 mg/dL Normal 5-[address] [facility] Comment on above: Performed By: #### 2 740559 #### [facility] [address] [place] [address] Urea nitrogen/Creatinine [Mass ratio] 11 No Units Normal 10-[address] [facility] Comment on above: Performed By: #### 2 084330 #### [facility] [address] [place] [address] Consent for Treatmenton 01-01 Consent for Treatment [id number]#1.00TIFF Normal [facility] Discharge Instructionson Discharge Instructions [id number]#[id number] Normal [facility] ED Clinical Summaryon 2023 ED Clinical Summary (Inserted Image. Nida ble to display) [address] [address] ED Clinical Summary Person Information Name: ROSE MARY SCHNEIDER [facility] Age[facility] 18 Years : 2005 Sex: Female Language: [place] Citizen PCP: Claudia Ellington MD Marital Status: Single Phone: [phone] Visit Id: Visit Reason: Abdominal pain; ABDOMINAL [...] 17:22:14 01/12/2024 17:22:14 01/12/2024 17:22:14 AD[address]ESS: [address] [facility] [id number] PHYS DOC NOTES: MEDICAL INFORMATION: Prescriptions Given: New Medications [facility]/pharmacy #[id number], [address] [place], [place] [id number], [phone] ondansetron (Zofran ODT 4 mg Tab-Dis) 1 [...] INFORMATION: Instructions: Full Liquid Diet; Nausea, Adult, Aucd-om-Iccr; Abdominal Pain, Adult, Cecc-ko-Ejqd Follow up: With: Address: When: Claudia Ellington MD [employer] [place] [address] In 3 days 01/15/2024 DIAGNOSIS: 1:Generalized abdominal pain; 2:Nausea; 3:Elevated lipase Normal [facility] ED Note-Nursingon 01-12-2024 ED Note-Nursing MARIE Morales at [facility] to discuss poc. Normal [facility] ED Patient Education Noteon 01-12-2024 ED [...] Water. Coffee and tea (caffeinated or decaffeinated). Totz. Liquid nutritional supplements. Soft drinks. Nondairy milks, such as almond, coconut, rice, or soy milk. Sweets and desserts Custard. Pudding. Flavored gelatin. Smooth ice cream (without nuts or candy pieces). Sherbet. Frozen ice pops. Romanian ice. Pudding pops. Seasonings and condiments Salt and pepper. Spices. Vinegar. Ketchup. Yellow mustard. Smooth sauces, such as Hollandaise, cheese sauce, or white sauce. Soy sauce. Syrup. Honey. Jelly (without fruit pieces). Other foods Totz powder. Cream soups. Strained soups. The items [...] This infor (more content not included)... Normal [facility] ED Patient Education Note Gastroenterology Nausea, [...] ? Low-calorie sports drinks. ? Eat bland, izhm-jt-miuqqa foods in small amounts as you are able, such as: ? Bananas. ? Applesauce. ? Rice. ? Low-fat (lean) meats. ? Rodey. ? Crackers. ? Avoid drinking fluids that have a lot of sugar or caffeine in them. This includes energy drinks, sports drinks, and soda. ? Avoid alcohol. ? Avoid spicy or fatty foods. General instructions ? 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 ? Make sure that everyone in your [...] drink what your doctor tells you. Take rulm-cdv-ftnqxxo and prescription medicines only as told by [...] provider. Document Revised: 01/24/2022 Document Reviewed: 01/24/2022 [employer] Patient Education ? 2022 [employer]. Abdominal Pain, Adult Many things can cause belly (abdominal) pain. Most times, belly pain is not dangerous. Many cases of belly pain can be watched and treated at home. Sometimes, though, belly pain is serious. Your doctor will try to find the cause of your belly pain. Follow these instructions at home: Medicines ? Take tors-qgq-azcqkgz and prescription medicines only as told by [...] doctor if: (more content not included)... Normal [facility] ED Patient Summaryon 024 ED Patient Summary (Inserted Image. Nida ble to display) [place] [id number] Patient Discharge Instructions Person Information Name: ROSE MARY SCHNEIDER Age: 18 Years Arrival Date: 01/12/2024 14:42:50 Discharge Diagnosis: 1:Generalized abdominal pain; 2:Nausea; 3:Elevated lipase Primary Care Physician: Claudia Ellington MD Provider Information Primary Provider: Radha Whipple DO Advanced Casket Assembler:Liss Schroeder PA-C The exam and treatment you received in the Emergency Department were for an urgent problem and are not intended as complete care. It is important that you follow up with a doctor, nurse practitioner, or physician?s health care legal assistant for ongoing care. If your symptoms become [...] Instructions: With: Address: When: Claudia Ellington MD [address] [place], [place] [id number] In 3 days 01/15/2024 In the event that this physician does not participate in your insurance network, please consult with your insurance company to find a nearby participating provider. Patient Education Materials: Full Liquid Diet; Nausea, Adult, Zkul-hu-Panq; Abdominal Pain, Adult, Auhz-ne-Espe A MESSAGE TO ALL PATIENTS REGARDING OPIOIDS PRESCRIPTION OPIOIDS: WHAT YOU NEED TO KNOW Prescription opioids can be used to help relieve lyuhllcl-nr-igdfsi pain and are often prescribed following a [...] care professiona (more content not included)... Normal [facility] HEMATOLOGYOrdered By: SYSTEM SYSTEM on 01-12-2024 [...] Lipase [Catalytic activity/Vol] 158 U/L High 13-[address] [facility] Comment on above: Performed By: #### 2 [id number] #### [facility] [address] [place] [address] Prescriptions/Work Noteson 0 01-12-2024 Prescriptions/Work Notes [id number]#1.00TIFF Normal [facility] SEROLOGYOrdered By: Alisha Smart on 01-12-2024 HCG.beta subunit (U) [Moles/Vol] Negative Normal [facility] Man Sero U BetaHcg Qualon 01-12-2024 HCG.beta subunit (U) [Moles/Vol] Negative Normal [facility] Comment on above: Performed By: #### 2 [id number] #### [facility] [address] [place] [address] UA with Cult Rflxon 01-12-20 24 Bilirubin Ql (U) Negative Normal Negative [facility] Comment on above: Performed By: #### 4 [id number] #### [facility] [address] [place] [address] Clarity (U) Clear Normal Clear [facility] Comment on above: Performed By: #### 4 [id number] #### [facility] [address] [place] [address] Color (U) Light-Yellow Normal Yellow [facility] Comment on above: Result Comment: Micr oscopic readings are only performed on those samples that meet specific criteria set forth by [facility]. Performed By: #### 4 [id number] #### [facility] [address] [place] [address] Epithelial cells.squamous Auto (Urine sed) [#/Area] 3-4 Invalid Interpretation Code [facility] Comment on above: Performed By: #### 4 [id number] #### [facility] [address] [place] [address] Glucose Ql (U) Negative Normal Negative [facility] Comment on above: Performed By: #### 4 [id number] #### [facility] [address] [place] [address] Hemoglobin Auto test strip (U) [Mass/Vol] 2+ mg/dL Abnormal Negative [facility] Comment on above: Performed By: #### 4 [id number] #### [facility] [address] [place] [address] Ketones Auto test strip Ql (U) Negative Normal Negative [facility] Comment on above: Performed By: #### 4 [id number] #### [facility] [address] [place] [address] Leukocyte esterase Auto test strip Ql (U) Negative Normal Negative [facility] Comment on above: Performed By: #### 4 [id number] #### [facility] [address] [place] [address] Mucus Auto Ql (U) Trace Normal Negative [facility] Comment on above: Performed By: #### 4 [id number] #### [facility] [address] [place] [address] Nitrite Auto test strip Ql (U) Negative Normal Negative [facility] Comment on above: Performed By: #### 4 [id number] #### [facility] [address] [place] [address] pH (U) 6.5 [pH] Invalid Interpretation Code 5.0-9.[address] [facility] Comment on above: Performed By: #### 4 [id number] #### [facility] [address] [place] [address] Protein Ql (U) Negative Normal Negative [facility] Comment on above: Performed By: #### 4 [id number] #### [facility] [address] [place] [address] RBC Ql (U) 0-3 Normal 0-[address] [facility] Comment on above: Performed By: #### 4 [id number] #### [facility] [address] [place] [address] Specific gravity (U) [Rel density] 1.021 Invalid Interpretation Code 1.005-1.[address] [facility] Comment on above: Performed By: #### 4 [id number] #### [facility] [address] [place] [id number] Urobilinogen (U) [Mass/Vol] Negative Normal Negative [facility] Comment on above: Performed By: #### 4 [id number] #### [facility] [address] [place] [address] WBC Auto (Urine sed) [#/Area] 0-5 Normal 0-[address] [facility] Comment on above: Performed By: #### 4 [id number] #### [facility] [address] [place] [address] Type of Urine collection method Random Urine Normal [facility] Comment on above: Performed By: #### 4 [id number] #### [facility] [address] [place] [id number] URINALYSISOrdered By: SYSTEM SYSTEM on 01-12-2024 Bilirubin Ql (U) Negative Normal Negativemg/ dL [facility] UA Auto SS Clarity (U) Clear (01/12/24 4:20 PM) Normal Clear [facility] UA Auto SS Color (U) Light-Yellow 1 (01/12/24 4:20 PM) Normal Yellow [facility] UA Auto SS Comment on above: Interpretive Data: M icroscopic readings are only performed on those samples that meet specific criteria set forth by [facility]. Epithelial cells.squamous Auto (Urine sed) [...] strip Ql (U) Negative Normal Negativemg/ dL [facility] UA Auto SS pH (U) 6.5 *NA* (01/12/24 4:20 PM) Invalid Interpretation Code 5.0 - 9.0 [facility] Auto SS Protein Ql (U) Negative Normal Negativemg/ dL [facility] Auto SS RBC Ql (U) 0-3 graded/HPF Normal 0-3graded/H PF [facility] UA Auto SS Specific gravity (U) [Rel density] 1.021 *NA* (01/12/24 4:20 PM) Invalid Interpretation Code 1.005 - 1.030 [facility] UA Auto SS Urobilinogen (U) [Mass/Vol] Negative Normal Negativemg/ dL [facility] UA Auto SS WBC Auto (Urine sed) [#/Area] 0-5 graded/HPF Normal 0-5graded/H PF [facility] UA Auto SS URINALYSISOrdered By: Aicha Schroeder on 01-12-2024 UA Spec Desc Random Urine (01/12/24 4:20 PM) Normal [facility] UA Auto SS Work Phone: eGFRon 01-12-2024 eGFR 128 mL/min/1.73 m2 Normal >=[address] [facility] Comment on above: Order Comment: Order added by Discern Expert. Performed By: #### 1 [id number] #### [facility] [address] [place] [address] EEGon 05-23-2023 EEG This is a long-term continuous video electroencephalogram monitor performed on an 17-year-old female using standard 10/20 lead placement and a [employer]-SubC Control system. All data were obtained digitally and [...] stimulation. Melecio Rubio M.D. ca Dictated: 05/15/2023 [id number] Typed: 05/15/2023 [facility] Comment on above: Result Comment: Elec tronically Signed By: Ramiro MARCANO, Melecio\.br\Date and Time Signed: 05/23/23 08:20 EDT EEG This is a continuati on of the previous 24-hour recording. This is a continuous video electroencephalogram performed on an 17-year-old female using standard 10/20 lead placement and a [employer]-SubC Control system. All data were available for reformatting [...] required. Melecio Rubio M.D. ca Dictated: 05/15/2023 [id number] Typed: 05/15/2023 [facility] Comment on above: Result Comment: Elec [...] 42.81 While BMI may be coded from library circulation assistant or nursing documentation, the weight-related diagnosis must [...] H please code as morbid obesity Normal [facility] Discharge Instructionson Discharge Instructions [id number]#[id number] Normal [facility] Inpatient Clinical Summaryon 05-13-2023 Inpatient Clinical Summary [address] [address] Clinical Summary Person Information: Name: ROSE MARY SCHNEIDER Age: 17 Years : 2005 Sex: Female PCP: Claudia Ellington MD Marital Status: Single Phone: [phone] Race: White Ethnicity: Non- or Language: [place] Citizen Visit Id: Visit Reason: R56.9 Unspecified convulsions Speciality: Acuity: Enc Type: Inpatient Med Service: Neurology Clinic Arrival: 05/11/2023 07:26:33 Discharge: Dispo Type: Address: [address] [place] [address] DR BERTHA Todd [facility] [id number] Provider Notes: Diagnosis: 1:Seizures; 2:History of gastroesophageal [...] Follow up: With: Address: When: Joann Zamorano [address] [address] Business (1) Comments: Call for hospital followup appointment 2-3 weeks With: Address: When: Claudia Ellington [employer] [place] [id number] Business (1) Comments: Call for followup appointment Patient Education Information: Seizure, Adult Keppra Normal [facility] Inpatient Patient Summaryon 05-13-2023 Inpatient Patient [...] Pending Diagnostic Test Results None Pharmacy Information [facility] Discharge Instructions NO DRIVING until cleared by neurology New Follow Up Appointments after Discharge Follow Up with Joann Zamorano When: Comments: Call for hospital followup appointment 2-3 weeks Where: [facility] [place] [address] [place] [address]- Business (1) Follow Up with Claudia Ellington When: Comments: Call for followup appointment Where: [employer] [facility] [place] [address]- Business (1) Medications What How Much When Instructions Next Dose Changed levetiracetam (Keppra 500 mg Tab) 1 Tablets By Mouth 2 times a day Pickup at [facility]/pharmacy #[id number] 05/13 9pm Unchanged APAP/ butalbital/ caffeine (APAP/ [...] (Protonix 40 mg tablet) Resume Pharmacy Information [facility]/pharmacy #[id number]: [address] [place], [place] [id number] [phone] Test Results CBC BMP WBC: 5.6 E9/L [...] ? Metabolic (more content not included)... Normal [facility] Inpatient Patient Summary [place] [address] Patient Discharge Instructions PERSON INFORMATION Name: ROSE [...] None Follow up: With: Address: When: Joann MACK [place], [address] [place] [address] Business (1) Comments: Call for hospital followup appointment 2-3 weeks With: Address: When: Claudia Ellington [address] [facility] [place] [address] [place] [address] Business (1) Comments: Call for followup [...] Changed [id number], [address] [place], [place] [id number], [phone] START: levetiracetam (Keppra 500 mg Tab) 1 [...] (melatonin-pyridoxine 3 mg-10 (more content not included)... [facility] Interdisciplinary Note - Binu e Manageron 05-13-2023 Interdisciplinary Note - Bat Lathe Operator CRM entered the room to discuss dc planning. Pt is sleeping. Neuro following. ANt dc TBD. CRM to follow. [facility] Comment on above: Result Comment: Elec karlaally Signed By: Peyton Mccarty\Date and Time Signed: 05/13/23 09:22 EDT Monitor Recordon 05-13-2023 Monitor Record [id number]#1.00TIFF [facility] Monitor Record [id number]#1.00TIFF Normal [facility] Progress Note-Physicianon Progress Note-Physician Basic Information [...] sensation in all 4 extremities. Cerebellar exam: Kagxkr-eo-eciw reveals no ataxia. Gait is normal. [4] [3] Lab Results Glucose Cap: 84 mg/dL (05/12/23 21:54:00) POC Device SN: [id number] (05/12/23 21:54:00) POC User ID: [id number] (05/12/23 21:54:00) POC Username: NERY ALCALA (05/12/23 [...] PRN ceti (more content not included)... Normal [facility] Comment on above: Result Comment: Elec [...] 05:50:00) Lymph Auto: 41.3 % (05/12/23 05:50:00) Chicot Auto: 8.8 % (05/12/23 05:50:00) Eos Auto: 3.1 % (05/12/23 05:50:00) Basophil Auto: 0.4 % (05/12/23 05:50:00) Neutro Absolute: 2.6 E9/L (05/12/23 05:50:00) Lymph Absolute: 2.3 E9/L (05/12/23 05:50:00) Chicot Absolute: 0.5 E9/L (05/12/23 05:50:00) Eos Absolute: [...] (05/12/23 05:50:0 (more content not included)... Normal [facility] Comment on above: Result Comment: Elec tronically Signed By: Alicia Sidhu\.br\Date and Time Signed: 05/12/23 15:34 EDT\.br\Electronically Co-Signed By: ADELINE MARCANO, Akosua\.br\Date and Time Co-Signed: 05/13/23 07:06 EDT Auto Diffon 05-12-2023 Basophils/100 WBC (Bld) 0.4 % Normal 0.0-2.[address] [facility] Comment on above: Order Comment: Order Added by Discern Expert. Performed By: #### 2 [id number], [id number] #### [facility] [address] [place] [address] Basophils/Leukocytes Auto (Bld) [Pure # fraction] 0.0 E9/L Normal 0.0-0.[address] [facility] Comment on above: Order Comment: Order Added by Discern Expert. Performed By: #### 2 [id number], [id number] #### [facility] [address] [place] [address] Eosinophils/100 WBC (Bld) 3.1 % Normal 0.0-8.[address] [facility] Comment on above: Order Comment: Order Added by Discern Expert. Performed By: #### 2 344453, [id number] #### [facility] [address] [place] [address] Eosinophils/Leukocytes Auto (Bld) [Pure # fraction] 0.2 E9/L Normal 0.0-0.[address] [facility] Comment on above: Order Comment: Order Added by Discern Expert. Performed By: #### 2 817888, [id number] #### [facility] [address] [place] [address] Lymphocytes/100 WBC (Bld) 41.3 % Normal 14.0-50.[address] [facility] Comment on above: Order Comment: Order Added by Discern Expert. Performed By: #### 2 463559, [id number] #### [facility] [address] [place] [address] Lymphocytes/Leukocytes Auto (Bld) [Pure # fraction] 2.3 E9/L Normal 1.0-4.[address] [facility] Comment on above: Order Comment: Order Added by Discern Expert. Performed By: #### 2 524625, [id number] #### [facility] [address] [place] [address] Monocytes/100 WBC (Bld) 8.8 % Normal 4.0-14.[address] [facility] Comment on above: Order Comment: Order Added by Discern Expert. Performed By: #### 2 286075, [id number] #### [facility] [address] [place] [address] Monocytes/Leukocytes Auto (Bld) [Pure # fraction] 0.5 E9/L Normal 0.2-1.[address] [facility] Comment on above: Order Comment: Order Added by Discern Expert. Performed By: #### 2 744160, [id number] #### [facility] [address] [place] [address] Neutrophils/100 WBC (Bld) 46.4 % Normal 36.0-75.[address] [facility] Comment on above: Order Comment: Order Added by Discern Expert. Performed By: #### 2 994336, [id number] #### [facility] [address] [place] [address] Neutrophils/Leukocytes Auto (Bld) [Pure # fraction] 2.6 E9/L Normal 2.0-7.[address] [facility] Comment on above: Order Comment: Order Added by Discern Expert. Performed By: #### 2 658937, [id number] #### [facility] [address] [place] [address] CBC w/ Auto Diffon 202 3 Erythrocyte distribution width (RBC) [Ratio] 13.8 % Normal 10.9-14.[address] [facility] Comment on above: Performed By: #### 2 823738, [id number] #### [facility] [address] [place] [address] Hematocrit (Bld) [Volume fraction] 38.5 % Normal 34.0-46.[address] [facility] Comment on above: Performed By: #### 2 898286, [id number] #### [facility] [address] [place] [address] Hemoglobin (Bld) [Mass/Vol] 13.2 g/dL Normal 12.0-16.[address] [facility] Comment on above: Performed By: #### 2 895117, [id number] #### [facility] [address] [place] [address] MCH (RBC) [Entitic mass] 29.2 pg Normal 27.0-34.[address] [facility] Comment on above: Performed By: #### 2 806598, 8502086 #### [facility] [address] [place] [address] MCHC (RBC) [Mass/Vol] 34.3 g/dL Normal 31.4-36.0 [facility] Comment on above: Performed By: #### 2 937594, [id number] #### [facility] [address] [place] [address] MCV (RBC) [Entitic vol] 85.2 fL Normal 80.0-100.[address] [facility] Comment on above: Performed By: #### 2 944985, [id number] #### [facility] [address] [place] [address] Platelet mean volume (Bld) [Entitic vol] 8.2 fL Normal 6.4-10.[address] [facility] Comment on above: Performed By: #### 2 976583, 0476594 #### [facility] [address] [place] [address] Platelets (Bld) [#/Vol] 332.0 E9/L Normal 150.0-500.[address] [facility] Comment on above: Performed By: #### 2 669200, 0336564 #### [facility] [address] [place] [address] RBC (Bld) [#/Vol] 4.5 E12/L Normal 4.3-5.[address] [facility] Comment on above: Performed By: #### 2 710120, 4933056 #### [facility] [address] [place] [address] WBC corrected for nucl RBC Auto (Bld) [#/Vol] 5.6 E9/L Normal 4.0-11.[address] [facility] Comment on above: Performed By: #### 2 631979, 6671332 #### [facility] [address] [place] [address] CHEMISTRYOrdered By: Lab ROP User on 05-12-2023 Glucose [Mass/Vol] 84 mg/dL Normal 55 - 99 mg/dL [facility] POC Subsection Comment on above: Result Comment: Drea kaur RN/ POC Device SN [id number] Invalid Interpretation Code [facility] POC Subsection POC Username NERY ALCALA Invalid Interpretation Code [facility] POC Subsection Sodium [Moles/Vol] [id number]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 to draw labs [id number] 03/09/2023 06:41:32 EDT Performed By: #### 2 126550, [id number] #### [facility] [address] [place] [address] Calcium [Mass/Vol] 9.1 mg/dL Normal 8.9-11.[address] [facility] Comment on above: Order Comment: per tejas Brito wants us to wait till 0800 to draw labs [id number] 03/09/2023 06:41:32 EDT Performed By: #### 2 593914, 8999845 #### [facility] [address] [place] [address] Chloride [Moles/Vol] 107 mmol/L Normal 101-111 [facility] Comment on above: Order Comment: per tejas Brito wants us to wait till 0800 to draw labs [id number] 03/09/2023 06:41:32 EDT Performed By: #### 2 995940, 8296115 #### [facility] [address] [place] [address] CO2 [Moles/Vol] 24 mmol/L Normal 21-[address] [facility] Comment on above: Order Comment: per tejas Brito wants us to wait till 0800 to draw labs [id number] 03/09/2023 06:41:32 EDT Performed By: #### 2 633070, 1862705 #### [facility] [address] [place] [address] Creatinine [Mass/Vol] 0.7 mg/dL Normal 0.5-1.3 [facility] Comment on above: Order Comment: per tejas Brito wants us to wait till 0800 to draw labs [id number] 03/09/2023 06:41:32 EDT Performed By: #### 2 936973, 6498908 #### [facility] [address] [place] [address] Globulin (S) [Mass/Vol] 4.0 g/dL Normal 1.4-4.[address] [facility] Comment on above: Order Comment: per tejas Brito wants us to wait till 0800 to draw labs [id number] 03/09/2023 06:41:32 EDT Performed By: #### 2 142134, 7608392 #### [facility] [address] [place] [address] Glucose [Mass/Vol] 93 mg/dL Normal 55-[address] [facility] Comment on above: Order Comment: per tejas Kauffman RN Alisha wants us to wait till 0800 to draw labs [id number] 03/09/2023 06:41:32 EDT Result Comment: If t his glucose result represents a fasting glucose, interpretation should refer to the following reference range: 55-99 mg/dL Performed By: #### 2 934802, 2135959 #### [facility] [address] [place] [address] Potassium [Moles/Vol] 4.0 mmol/L Normal 3.5-5.3 [facility] Comment on above: Order Comment: per tejas Kauffman RN Alisha wants us to wait till 0800 to draw labs [id number] 03/09/2023 06:41:32 EDT Performed By: #### 2 791228, 8477156 #### [facility] [address] [place] [address] Protein [Mass/Vol] 7.1 g/dL Normal 6.0-7.[address] [facility] Comment on above: Order Comment: per tejas Kauffman RN Alisha wants us to wait till 0800 to draw labs [id number] 03/09/2023 06:41:32 EDT Performed By: #### 2 628244, 6836703 #### [facility] [address] [place] [address] Sodium [Moles/Vol] 137 mmol/L Normal 135-[address] [facility] Comment on above: Order Comment: per tejas Kauffman RN Alisha wants us to wait till 0800 to draw labs [id number] 03/09/2023 06:41:32 EDT Performed By: #### 2 709561, 3372921 #### [facility] [address] [place] [address] Urea nitrogen [Mass/Vol] 11 mg/dL Normal 5-[address] [facility] Comment on above: Order Comment: per tejas Conwayfer wants us to wait till 0800 to draw labs [id number] 03/09/2023 06:41:32 EDT Performed By: #### 2 919006, 2864461 #### [facility] [address] [place] [address] Urea nitrogen/Creatinine [Mass ratio] 16 No Units Normal 10-[address] [facility] Comment on above: Order Comment: per tejas Kauffman RN Alisha wants us to wait till 0800 to draw labs [id number] 03/09/2023 06:41:32 EDT Performed By: #### 2 317572, 2737215 #### [facility] [address] [place] [address] COAGULATIONOrdered By: Chepe Ragland on 03-09-2023 INR Coag (PPP) [Relative time] 1.0 {INR} Invalid Interpretation Code [facility] Auto Coag PT Coag (PPP) [Time] 10.6 s Normal 9.4 - 1 2.5 second(s) [facility] Auto Coag ECG Pediatricon 03-09-2023 ECG Pediatric The following ED Rev iew was created for ROSE MARY SCHNEIDER: SINUS TACHYCARDIA POSSIBLE LEFT ATRIAL ENLARGEMENT [-0.1mV P WAVE IN V1/V2] NONSPECIFIC T-WAVE ABNORMALITY ABNORMAL RHYTHM ECG Preliminary By: Romero MARCANO, Justice 03/07/2023 15:05:51 Pipelines Manager has Agreed this ED Review Normal [facility] Insurance Correspondence Off ice03-09-2023 Insurance Correspondence Office [id number]#[id number]:[address] [facility] Interdisciplinary Note - Binu e Manageron 03-09-2023 Interdisciplinary Note - Bat Lathe Operator Pt is in bed sleeping. According to teoter, pt has not been having SI. Dr Reveles will assess for need of [place] slip and [facility]. Nursing will have to call [facility] if needed. Pending SW and Neurology. ANt dc TBD. CRM to follow. [facility] Comment on above: Result Comment: Elec tronically Signed By: Peyton Mccarty.br\Date and Time Signed: 03/09/23 09:25 EDT Interdisciplinary Note - Mayra singon 03-09-2023 Interdisciplinary Note - Nursing 1405 spoke with [facility] hotline. they requested chart be faxed to them. 1420 chart and pink slip faxed to [facility]. 1436 original fax did not go through. refaxed at this time. 1500 fax did not go trough. re attempted. Normal [facility] Interdisciplinary Note - Soc ial Workeron 03-09-2023 Interdisciplinary Note - Outbound Sales Advisor Consult received by regarding an intentional acetaminophen overdose / SI . Awaiting [facility] consult. SW will follow [facility]'s plan moving forward. [facility] Monitor Recordon 03-09-2023 Monitor Record [id number]#[id number]:[address] [facility] Monitor Record [id number]#[id number]:[address] [facility] Monitor Record [id number]#[id number]:[address] [facility] PTon 03-09-2023 INR Coag (PPP) [Relative time] 1.0 {INR} Invalid Interpretation Code [facility] Comment on above: Result Comment: INR results are specifically intended to assess patients stabilized on long-term Anticoagulation therapy suggested INR?s ?Less Intensive Anticoagulation? 2.0 ? 3.0 Conventional Range 3.0 ? 4.5 Performed By: #### 2 715437, 8950408 #### [facility] [address] [place] [address] PT Coag (PPP) [Time] 10.6 second(s) Normal 9.4-12.[address] [facility] Comment on above: Result Comment: 15 [...] same coagulation reagent and instrumentation as [facility]. Currently there are no coagulation studies available worldwide for children to 14 days, and no normal ranges. Performed By: #### 2 373955, 2675730 #### [facility] [address] [place] [address] Progress Note-Nurseon 2022 Progress Note-Nurse Dr. Eamon marie via [employer]. Patient has PT and CMP 8/7 at 0600. Physician notified of current lab orders and no further orders received at this time. Normal [facility] Progress Note-Nurse Patient is afebrile, VS as documented, and patient in no distress. She denies pain, gi upset, and distress. Safety maintained and supervision continued. Normal [facility] Progress Note-Physicianon Progress Note-Physician Subjective Doing [...] (E66.9: Obesi (more content not included)... Normal [facility] Comment on above: Result Comment: Elec tronically Signed By: Lawrence Reveles DO\.br\Date and Time Signed: 03/09/23 14:30 EDT eGFRon 03-09-2023 GFR/1.73 sq M.predicted among non-blacks MDRD (S/P/Bld) [Vol rate/Area] 128 mL/min/1.73 m2 Normal >=[address] [facility] Comment on above: Order Comment: Order added by Discern Expert. Result Comment: Corporate Quality Assurance Manager marleny kidney disease could be indicated at eGFR's of less than 60 mL/min/1.73m2. Kidney failure is indicated at less than 15 mL/min/1.73m2. Performed By: #### 2 326787, 2517651 #### [facility] [address] [place] [address] Acetamnphn Lvlon 03-08-2023 Acetaminophen [Mass/Vol] ug/mL Low 15-[address] [facility] Comment on above: Performed By: #### 2 849958, 4224773 #### [facility] [address] [place] [address] Acetaminophen [Mass/Vol] 10 microgram/mL Low -[address] [facility] Comment on above: Performed By: #### 2 319637, 6523913 #### [facility] [address] [place] [address] BMPon 03-08-2023 Anion gap [Moles/Vol] 13 mmol/L Normal 6-16 [facility] Comment on above: Performed By: #### 2 299196, 7950199, 7880169, 08600094, 61719898 ####[facility] [address] [facility] [place] [address] Calcium [Mass/Vol] 9.1 mg/dL Normal 8.9-11.[address] [facility] Comment on above: Performed By: #### 2 253533, 2703272, 2119640, 50274735, 35620116 ####[facility] [address] [place] [address] Chloride [Moles/Vol] 105 mmol/L Normal 101-111 [facility] Comment on above: Performed By: #### 2 460565, 4232667, 0923962, 90244744, 68180136 ####[facility] [address] [place] [address] CO2 [Moles/Vol] 23 mmol/L Normal 21-[address] [facility] Comment on above: Performed By: #### 2 494200, 1048492, 0580126, 01836311, 61153028 ####[facility] [address] [facility] [place] [address] Creatinine [Mass/Vol] 0.8 mg/dL Normal 0.5-1.3 [facility] Comment on above: Performed By: #### 2 699232, 2184100, 4739510, 09634166, 53514010 ####[facility] [address] [facility] [place] [address] Glucose [Mass/Vol] 103 mg/dL Normal 55-[address] [facility] Comment on above: Result Comment: If t his glucose result represents a fasting glucose, interpretation should refer to the following reference range: 55-99 mg/dL Performed By: #### 2 586669, 0946603, 1844433, 88589947, 35786131 ####[facility] [address] [place] [address] Potassium [Moles/Vol] 3.3 mmol/L Low 3.5-5.3 [facility] Comment on above: Performed By: #### 2 800029, 8180986, 4942478, 87185197, 25114798 ####[facility] [address] [place] [address] Sodium [Moles/Vol] 138 mmol/L Normal 135-[address] [facility] Comment on above: Performed By: #### 2 047335, 2418298, 1917135, 13528500, 41057546 ####[facility] [address] [place] [address] Urea nitrogen [Mass/Vol] 7 mg/dL Normal 5-[address] [facility] Comment on above: Performed By: #### 2 757048, 8622140, 6708574, 32755364, 13995845 ####[facility] [address] [place] [address] Urea nitrogen/Creatinine [Mass ratio] 9 No Units Low 10-[address] [facility] Comment on above: Performed By: #### 2 828700, 5166845, 9469200, 95974184, 52297045 ####[facility] [address] [place] [address] CHEMISTRYOrdered By: SYSTEM SYSTEM on 03-08-2023 Albumin [...] s Normal 25.1 - 36.5 second(s) [facility] Auto Coag INR Coag (PPP) [Relative time] 1.1 {INR} Invalid Interpretation Code [facility] Auto Coag PT Coag (PPP) [Time] 12.1 s Normal 9.4 - 1 2.5 second(s) [facility] Auto Coag GetWell Education Videoon GetWell Education Video Avoiding Infections in the Hospital Yes Patient Normal [facility] Hep Func Panelon 03-08-2023 Bilirubin.indirect [Mass or moles/Vol] UTC Abnormal 0.1-0.[address] [facility] Comment on above: Result Comment: Resu lt verified by Discern Rule. Performed result UTC (Unable to Calculate) was sent as an Alpha code due the inability to calculate a valid numeric value. Performed By: #### 2 483956 #### [facility] [address] [place] [address] Albumin [Mass/Vol] 3.0 g/dL Low 3.3-5.[address] [facility] Comment on above: Performed By: #### 2 116401 #### [facility] [address] [place] [address] Albumin/Globulin (S) [Mass conc ratio] 0.7 Low 1.1-2.[address] [facility] Comment on above: Performed By: #### 2 666752 #### [facility] [address] [place] [address] ALP [Catalytic activity/Vol] 46 Int._Unit/L Normal 21-[address] [facility] Comment on above: Performed By: #### 2 339958 #### [facility] [address] [place] [address] ALT No additional P-5'-P [Catalytic activity/Vol] 14 Int._Unit/L Normal 6-[address] [facility] Comment on above: Performed By: #### 2 030796 #### [facility] [address] [place] [address] AST [Catalytic activity/Vol] 17 Int._Unit/L Normal 5-[address] [facility] Comment on above: Performed By: #### 2 030745 #### [facility] [address] [place] [address] Bilirubin [Mass/Vol] 0.3 mg/dL Normal 0.0-1.1 [facility] Comment on above: Performed By: #### 2 356758 #### [facility] [address] [place] [address] Globulin (S) [Mass/Vol] 4.2 g/dL High 1.4-4.[address] [facility] Comment on above: Performed By: #### 2 048400 #### [facility] [address] [place] [address] Protein [Mass/Vol] 7.2 g/dL Normal 6.0-7.[address] [facility] Comment on above: Performed By: #### 2 577233 #### [facility] [address] [place] [address] Bilirubin.direct [Mass/Vol] mg/dL Normal 0.1-0.[address] [facility] Comment on above: Performed By: #### 2 663647 #### [facility] [address] [place] [address] Bilirubin.indirect [Mass or moles/Vol] UTC Abnormal 0.1-0.[address] [facility] Comment on above: Result Comment: Resu lt verified by Discern Rule. Performed result UTC (Unable to Calculate) was sent as an Alpha code due the inability to calculate a valid numeric value. Performed By: #### 2 822802, 0814833, 1080557, 91860217, 08345750 ####[facility] [address] [place] [address] Albumin [Mass/Vol] 3.0 g/dL Low 3.3-5.[address] [facility] Comment on above: Performed By: #### 2 912061, 6976623, 3213943, 12710862, 78553323 ####[facility] [address] [place] [address] Albumin/Globulin (S) [Mass conc ratio] 0.7 Low 1.1-2.[address] [facility] Comment on above: Performed By: #### 2 793765, 9340118, 8684480, 43945957, 83569145 ####[facility] [address] [place] [address] ALP [Catalytic activity/Vol] 42 Int._Unit/L Normal 21-[address] [facility] Comment on above: Performed By: #### 2 557108, 1542282, 8968505, 59941489, 24487962 ####[facility] [address] [place] [address] ALT No additional P-5'-P [Catalytic activity/Vol] 12 Int._Unit/L Normal 6-[address] [facility] Comment on above: Performed By: #### 2 133996, 1909396, 4482544, 84499238, 97761606 ####[facility] [address] [place] [address] AST [Catalytic activity/Vol] 13 Int._Unit/L Normal 5-[address] [facility] Comment on above: Performed By: #### 2 523030, 0452405, 9702447, 59306434, 51433460 ####[facility] [address] [place] [address] Bilirubin [Mass/Vol] 0.4 mg/dL Normal 0.0-1.1 [facility] Comment on above: Performed By: #### 2 089300, 2014637, 8669837, 17322404, 07773202 ####[facility] [address] [place] [address] Globulin (S) [Mass/Vol] 4.2 g/dL High 1.4-4.[address] [facility] Comment on above: Performed By: #### 2 388507, 6007028, 5319190, 05646970, 38340479 ####[facility] [address] [place] [address] Protein [Mass/Vol] 7.2 g/dL Normal 6.0-7.[address] [facility] Comment on above: Performed By: #### 2 140047, 9315353, 0536101, 87421942, 69052337 ####[facility] [address] [place] [address] Bilirubin.direct [Mass/Vol] mg/dL Normal 0.1-0.[address] [facility] Comment on above: Performed By: #### 2 649138, 7981455, 0545954, 39364998, 94118302 ####[facility] [address] [place] [address] Bilirubin.indirect [Mass or moles/Vol] UTC Abnormal 0.1-0.[address] [facility] Comment on above: Result Comment: Resu lt verified by Discern Rule. Performed result UTC (Unable to Calculate) was sent as an Alpha code due the inability to calculate a valid numeric value. Performed By: #### 2 684312, 1365604 #### [facility] [address] [place] [address] Albumin [Mass/Vol] 2.9 g/dL Low 3.3-5.[address] [facility] Comment on above: Performed By: #### 2 817379, 0884538 #### [facility] [address] [place] [address] Albumin/Globulin (S) [Mass conc ratio] 0.7 Low 1.1-2.[address] [facility] Comment on above: Performed By: #### 2 493332, 5482909 #### [facility] [address] [place] [address] ALP [Catalytic activity/Vol] 40 Int._Unit/L Normal 21-[address] [facility] Comment on above: Performed By: #### 2 306177, 6157888 #### [facility] [address] [place] [address] ALT No additional P-5'-P [Catalytic activity/Vol] 11 Int._Unit/L Normal 6-[address] [facility] Comment on above: Performed By: #### 2 733589, 4992000 #### [facility] [address] [place] [address] AST [Catalytic activity/Vol] 16 Int._Unit/L Normal 5-[address] [facility] Comment on above: Performed By: #### 2 435758, 7635346 #### [facility] [address] [place] [address] Bilirubin [Mass/Vol] 0.3 mg/dL Normal 0.0-1.1 [facility] Comment on above: Performed By: #### 2 226867, 0494797 #### [facility] [address] [place] [address] Globulin (S) [Mass/Vol] 4.0 g/dL Normal 1.4-4.[address] [facility] Comment on above: Performed By: #### 2 135252, 2839600 #### [facility] [address] [place] [address] Protein [Mass/Vol] 6.9 g/dL Normal 6.0-7.[address] [facility] Comment on above: Performed By: #### 2 602739, 2055104 #### [facility] [address] [place] [address] Bilirubin.direct [Mass/Vol] mg/dL Normal 0.1-0.[address] [facility] Comment on above: Performed By: #### 2 007388, 1578812 #### [facility] [address] [place] [address] Interdisciplinary Note - Binu e Manageron 03-08-2023 Interdisciplinary Note - Bat Lathe Operator CRM spoke with patient and mother in [...] has a sitter in the room. Normal [facility] Comment on above: Result Comment: Elec tronically Signed By: Don SHER, Antoinette\.br\Date and Time Signed: 03/08/23 12:53 EDT Monitor Recordon 03-08-2023 Monitor Record [id number]#1.00CD:[address] [facility] Monitor Record [id number]#1.00CD:[address] [facility] Monitor Record [id number]#1.00CD:[address] [facility] PT & PTTon 03-08-2023 aPTT Coag (PPP) [Time] 32.2 second(s) Normal 25.1-36.[address] [facility] Comment on above: Result Comment: Para [...] same coagulation reagent and instrumentation as [facility]. Currently there are no coagulation studies available worldwide for children to 14 days, and no normal ranges. Heparin therapeutic range (represented by Anti-Factor Xa activity of 0.2 - 0.4 U/mL) corresponds to PTT of 56.6 - 109.0 sec. Performed By: #### 2 682803, 7239028, 5666367, 97319857, 58802536 ####[facility] [address] [place] [address] INR Coag (PPP) [Relative time] 1.1 {INR} Invalid Interpretation Code [facility] Comment on above: Result Comment: INR results are specifically intended to assess patients stabilized on long-term Anticoagulation therapy suggested INR?s ?Less Intensive Anticoagulation? 2.0 ? 3.0 Conventional Range 3.0 ? 4.5 Performed By: #### 2 034615, 2045692, 0570146, 41936709, 70061514 ####[facility] [address] [place] [address] PT Coag (PPP) [Time] 12.1 second(s) Normal 9.4-12.[address] [facility] Comment on above: Result Comment: 15 [...] same coagulation reagent and instrumentation as [facility]. Currently there are no coagulation studies available worldwide for children to 14 days, and no normal ranges. Performed By: #### 2 549722, 8452734, 7910478, 10955319, 90044637 ####[facility] [address] [place] [address] Progress Note-Nurseon 2022 Progress Note-Nurse Patient assisted to BSC and voids a small amount of clear yellow urine. Patient also ate a 6 inch sub and tolerated it well. She denies GI upset and tolerated it well. Observation continued and safety maintained. Normal [facility] Progress Note-Nurse Report taken and bed [...] Seizure pads intact and safety maintained. Normal [facility] Progress Note-Nurse 1340: This RN contac [...] will remain on regular nursing floor. Normal [facility] Progress Note-Physicianon Progress Note-Physician Assessment/Plan 17-year-old [...] overdose with Tylenol/diphenhydramine.? Secondary to suicide ideation/attempt. 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 Acetaminophen level ekta to 40 but trended down to undetectable. Treating with IVF Thursday. LFTs within normal limit. Repeat LFTs and PT/INR in AM. Ordered: Basic Metabolic Panel Comprehensive Metabolic Panel Consult to Credit Cashier eGFR Extra Lav Tube Hepatic Function Panel PT [facility] Hospital Care/Day Moderate 35 Minutes 32052 2. Suicidal ideation (R45.851: Suicidal ideations) Supportive care. 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 Mental health evaluation in a.m. once medically stable. Ordered: Consult to Credit Cashier [facility] Hospital Care/Day Moderate 35 Minutes 35458 3. Antihistamines overdose (T45.0X1A: Poisoning by antiallergic and antiemetic drugs, accidental (unintentional), initial encounter) Treated with charcoal. Respiratory status and circulation currently stable. Treated with IV fluid. Bladder scan?so far not retaining urine. Ordered: [facility] Hospital Care/Day Moderate 35 Minutes 86667 4. Hypokalemia (E87.6: Hypokalemia) Secondary to gastrointestinal loss and IV fluid. We will replace orally. Ordered: potassium chloride, 40 mEq = 2 tab(s), Tab-ER, Oral, BID for 2 dose(s), Stop date 03/09/23 8:59:00 EDT, Routine, Start date 03/08/23 9:00:00 EDT, 03/08/23 8:36:00 EDT Comprehensive Metabolic Panel [facility] Hospital Care/Day Moderate 35 Minutes 89301 5. Depression (F32.A: Depression, unspecified) On fluoxetine. Ordered: [facility] Hospital Care/Day Moderate 35 Minutes 76874 6. Seizure (R56.9: Unspecified convulsions) No reported seizure. On Lamictal and Keppra. Ordered: lorazepam, 1 mg = 0.5 mL, Injection, IV Push, QID PRN Seizure, Routine, Start date 03/07/23 18:04:00 EDT 7. Obesity (E66.9: Obesity, unspecified) Recommend therapeutic lifestyle modification changes. 8. On deep vein thrombosis (DVT) prophylaxis (Z79.899: Other lobsterman (current) drug therapy) SCDs. Disposition: Pending mental health evaluation in AM. I discussed the diagnosis and plan of care with the patient at the bedside. Moderate level of MDM based on addressing above issues. This documentation was transcribed using voice recognition software. Several attempts were made to ensure accuracy. However inadvertent computerized property underwriter errors may be present. Jennifer Retana. Hospitalist. [...] -- charco (more content not included)... Normal [facility] Comment on above: Result Comment: Elec tronically Signed By: DEBBIE MARCANO, Zainafo\.br\Date and Time Signed: 03/08/23 08:38 EDT Reference Laboratory Testing Ordered By: Generated DomainUser on 03-08-2023 lamoTRIgine [Mass/Vol] microgram/mL Low 2.0-2 0.0mcg /mL [facility] [employer] Comment on above: Result Comment: Dete ction Limit = 1.0 Performed at: [address] [id number] MD Jose Armando Feliz levETIRAcetam [Mass/Vol] 12.4 microgram/mL Invalid Interpretation Code 10.0-40.0mc g/mL [facility] [employer] Comment on above: Result Comment: Perf ormed at: [address] [id number] MD Jose Armando Feliz eGFRon 03-08-2023 GFR/1.73 sq M.predicted among non-blacks MDRD (S/P/Bld) [Vol rate/Area] 109 mL/min/1.73 m2 Normal >=[address] [facility] Comment on above: Order Comment: Order added by Discern Expert. Result Comment: Corporate Quality Assurance Manager marleny kidney disease could be indicated at eGFR's of less than 60 mL/min/1.73m2. Kidney failure is indicated at less than 15 mL/min/1.73m2. Performed By: #### 2 469122, 4938436, 2662066, 68861708, 66107972 ####[facility] [address] [place] [address] Acetamnphn Lvlon 03-07-2023 Acetaminophen [Mass/Vol] 40 microgram/mL Abnormal 15-[address] [facility] Comment on above: Result Comment: Crit ical Result verified by repeat analysis\Critical Result S_ACTM:40.1 Called to ALLEN ZENG AT ER by SANIYA NEWBY And Read Back For Confirmation at: 03/07/2023 18:17:47 Performed By: #### 2 631900, 7572308 #### [facility] [address] [place] [address] Acetaminophen [Mass/Vol] 35 microgram/mL High 15-[address] [facility] Comment on above: Performed By: #### 1 5317341, 7968860, 0582111, 6621442, 27154104, 6512588, 9761037, 3305279, 7978661 #### [facility] [address] [place] [address] Auto Diffon 03-07-2023 Basophils/100 WBC (Bld) 0.5 % Normal 0.0-2.[address] [facility] Comment on above: Order Comment: Order Added by Discern Expert. Performed By: #### 1 8585165, 6321131, 3333917, 7547612, 77878553, 3071790, 5217056, 0837715, 1295609 ####[place] [address] [place] [address] Basophils/Leukocytes Auto (Bld) [Pure # fraction] 0.0 E9/L Normal 0.0-0.[address] [facility] Comment on above: Order Comment: Order Added by Discern Expert. Performed By: #### 1 1010600, 8568065, 6033385, 9779223, 16174736, 6037832, 4513362, 3104514, 1270528 ####[address] [place] [place] [address] Eosinophils/100 WBC (Bld) 1.9 % Normal 0.0-8.[address] [facility] Comment on above: Order Comment: Order Added by Discern Expert. Performed By: #### 1 2557987, 2483996, 4441241, 8120947, 16598442, 6061357, 5952114, 1758805, 0014279 ####[place] [place] [address] Eosinophils/Leukocytes Auto (Bld) [Pure # fraction] 0.1 E9/L Normal 0.0-0.[address] [facility] Comment on above: Order Comment: Order Added by Discern Expert. Performed By: #### 1 6118664, 6694228, 3767643, 9338418, 18912212, 6401261, 2967257, 7148878, 2059592 ####[address] [address] Lymphocytes/100 WBC (Bld) 28.7 % Normal 14.0-50.[address] [facility] Comment on above: Order Comment: Order Added by Discern Expert. Performed By: #### 1 4475386, 0379817, 7799837, 8845746, 24024854, 0421610, 7524084, 9900279, 0167611 ####[facility] [address] [place] [address] Lymphocytes/Leukocytes Auto (Bld) [Pure # fraction] 2.0 E9/L Normal 1.0-4.[address] [facility] Comment on above: Order Comment: Order Added by Discern Expert. Performed By: #### 1 6548538, 6028409, 4898754, 9837997, 99090082, 2363361, 1632451, 8781250, 3069011 ####[facility] [address] [place] [address] Monocytes/100 WBC (Bld) 8.6 % Normal 4.0-14.[address] [facility] Comment on above: Order Comment: Order Added by Discern Expert. Performed By: #### 1 1206190, 0130843, 8740912, 4552191, 44135571, 2414631, 8624097, 4083809, 7949882 ####[address] [address] Monocytes/Leukocytes Auto (Bld) [Pure # fraction] 0.6 E9/L Normal 0.2-1.[address] [facility] Comment on above: Order Comment: Order Added by Discern Expert. Performed By: #### 1 5303222, 4247149, 0415864, 1579761, 15372096, 8897980, 3195200, 2367948, 2067179 ####[facility] [address] [place] [address] Neutrophils/100 WBC (Bld) 60.3 % Normal 36.0-75.[address] [facility] Comment on above: Order Comment: Order Added by Samantha Expert. Performed By: #### 1 0208307, 1367864, 8401044, 5687037, 22253840, 5413417, 1160151, 7104037, 6835437 ####[facility] [address] [place] [address] Neutrophils/Leukocytes Auto (Bld) [Pure # fraction] 4.1 E9/L Normal 2.0-7.[address] [facility] Comment on above: Order Comment: Order Added by Discern Expert. Performed By: #### 1 9282587, 3833712, 0433644, 4018986, 59154530, 2039824, 6377029, 2652796, 9557477 ####[facility] [address] [place] [address] B hCG Qualon 03-07-2023 Beta hCG Ql Negative Normal [facility] Comment on above: Performed By: #### 1 4806869, 9364938, 4803278, 9754672, 43287936, 6437700, 3572842, 3282283, 7009648 ####[facility] [address] [place] [address] BMPon 03-07-2023 Creatinine [Mass/Vol] 0.9 mg/dL Normal 0.5-1.3 [facility] Comment on above: Performed By: #### 1 5808080, 0499044, 9883316, 7976998, 08386332, 4921419, 1967615, 5947074, 4246567 ####[facility] [address] [place] [address] Urea nitrogen [Mass/Vol] 9 mg/dL Normal 5-[address] [facility] Comment on above: Performed By: #### 1 2362082, 5452945, 1764372, 1921549, 06485227, 2812614, 4507681, 1612363, 1606462 ####[facility] [address] [place] [address] Urea nitrogen/Creatinine [Mass ratio] 10 No Units Normal 10-[address] [facility] Comment on above: Performed By: #### 1 0382014, 5166240, 0312223, 6529252, 57440764, 6811961, 5981037, 1088147, 4515917 ####[facility] [address] [place] [address] Anion gap [Moles/Vol] 14 mmol/L Normal 6-16 [facility] Comment on above: Performed By: #### 1 9124918, 6042439, 1414149, 9298975, 47981848, 7360722, 8200624, 5088667, 4515379 ####[facility] [address] [place] [address] Calcium [Mass/Vol] 9.4 mg/dL Normal 8.9-11.[address] [facility] Comment on above: Performed By: #### 1 5471074, 1434251, 9317285, 4924825, 68467570, 3788413, 7913357, 2373889, 0620146 ####[facility] [address] [place] [address] Chloride [Moles/Vol] 103 mmol/L Normal 101-111 [facility] Comment on above: Performed By: #### 1 1059768, 1761329, 5499552, 6558235, 71955431, 3706117, 4175935, 7304737, 6618112 ####[facility] [address] [place] [address] CO2 [Moles/Vol] 24 mmol/L Normal 21-[address] [facility] Comment on above: Performed By: #### 1 3347635, 1483518, 0160760, 3277431, 94366449, 9679055, 1060508, 7295963, 3739449 ####[facility] [address] [place] [address] Glucose [Mass/Vol] 95 mg/dL Normal 55-[address] [facility] Comment on above: Result Comment: If t his glucose result represents a fasting glucose, interpretation should refer to the following reference range: 55-99 mg/dL Performed By: #### 1 3325815, 2096746, 1415789, 8005039, 69121552, 0470775, 8647130, 3801218, 6681898 ####[facility] [address] [place] [address] Potassium [Moles/Vol] 3.6 mmol/L Normal 3.5-5.3 [facility] Comment on above: Performed By: #### 1 0059679, 6258500, 7648493, 5756476, 16631647, 8568597, 9524668, 0023311, 7543561 ####[facility] [address] [place] [address] Sodium [Moles/Vol] 137 mmol/L Normal 135-[address] [facility] Comment on above: Performed By: #### 1 7763664, 5053775, 9586248, 3805038, 47988279, 0091510, 2341355, 0169184, 4026181 ####[facility] [address] [place] [address] CBC w/ Auto Diffon Erythrocyte distribution width (RBC) [Ratio] 14.0 % Normal 10.9-14.[address] [facility] Comment on above: Performed By: #### 1 3172272, 7619661, 0646098, 7316923, 78741307, 9756140, 2457024, 3180849, 3864903 ####[place] [place] [address] Hematocrit (Bld) [Volume fraction] 37.9 % Normal 34.0-46.[address] [facility] Comment on above: Performed By: #### 1 8871804, 0442562, 5513698, 6005267, 06018625, 0268862, 2914799, 7762975, 8173904 ####[facility] [address] [place] [address] Hemoglobin (Bld) [Mass/Vol] 12.6 g/dL Normal 12.0-16.[address] [facility] Comment on above: Performed By: #### 1 5989421, 2229455, 5402456, 2471086, 28613075, 9139669, 2968337, 8142083, 8301414 ####[facility] [address] [place] [address] MCH (RBC) [Entitic mass] 28.0 pg Normal 27.0-34.[address] [facility] Comment on above: Performed By: #### 1 7879614, 5351296, 3387157, 2565488, 74798663, 6664674, 9913307, 0171576, 5042949 ####[facility] [address] [place] [address] MCHC (RBC) [Mass/Vol] 33.3 g/dL Normal 31.4-36.0 [facility] Comment on above: Performed By: #### 1 7049962, 3182418, 6435102, 0734815, 02386303, 0922333, 5342163, 1622472, 2069614 ####[address] [place] [place] [address] MCV (RBC) [Entitic vol] 84.0 fL Normal 80.0-100.[address] [facility] Comment on above: Performed By: #### 1 0056189, 5632819, 9567617, 2323821, 14773960, 9485619, 3900619, 3653704, 8939114 ####[facility] [address] [place] [address] Platelet mean volume (Bld) [Entitic vol] 7.9 fL Normal 6.4-10.[address] [facility] Comment on above: Performed By: #### 1 8379728, 1717966, 9001415, 6574648, 72570234, 1257441, 7788557, 2323452, 6963566 ####[address] [address] Platelets (Bld) [#/Vol] 442.0 E9/L Normal 150.0-500.[address] [facility] Comment on above: Performed By: #### 1 1004099, 3789988, 0151871, 6981672, 38687744, 4843828, 3495889, 7790250, 8934835 ####[address] [place] [place] [address] RBC (Bld) [#/Vol] 4.5 E12/L Normal 4.3-5.[address] [facility] Comment on above: Performed By: #### 1 5182468, 2697016, 2493079, 6551731, 48731802, 5598886, 2128782, 6285359, 5104129 ####[facility] [address] [place] [address] WBC corrected for nucl RBC Auto (Bld) [#/Vol] 6.8 E9/L Normal 4.0-11.[address] [facility] Comment on above: Performed By: #### 1 2476434, 7420402, 7612063, 1147915, 72478577, 6844636, 8286069, 3809827, 7135372 ####[facility] [address] [place] [address] CHEMISTRYOrdered By: Debby Cleveland on 03-07-2023 Acetaminophen [...] mL/min/1.73 m2 Normal >=59mL/min/ 1.73 m2 [facility] Chem S Glucose [Mass/Vol] 95 mg/dL Normal [...] Remisol Consent for Treatmenton Consent for Treatment [id number]:[address] [facility] ED Clinical Summaryon 2022 ED Clinical Summary (Inserted Image. Nida ble to display) [address] [address] ED Clinical Summary Person Information Name: ROSE MARY SCHNEIDER Kimberly/[facility]_Lenny Age: 17 Years : 2005 Sex: Female Language: [place] Citizen PCP: Claudia Ellington MD Marital Status: Single Phone: [phone] Visit Id: Visit Reason: Suicidal ideation; Intentional ingestion - overdose; SUICIDAL IDEATION Speciality: Acuity: 1 Enc Type: Observation Med Service: Emergency Arrival: 03/07/2023 14:06:45 Discharge: LOS: 000 04:36 Checkin: 03/07/2023 14:06:45 Checkout: 03/07/2023 18:42:28 Dispo Type: Admitted as IP to this [facility] EVENTS: Event Name Event Status Request [...] 03/07/2023 18:42:28 03/07/2023 18:42:28 03/07/2023 18:42:28 ADDRESS: [address] [place] [address] [address] [place] [id number] [facility] DOC NOTES: MEDICAL INFORMATION: Prescriptions Given: Medications [...] 7:On deep vein thrombosis (DVT) prophylaxis Normal [facility] ED Note-Physicianon 03-07-20 ED Note-Physician Basic [...] Oral Susp 240 mL, 50 gm, Oral Sklvvo852-YC [F] 175 mL + acetylSoln-IV [F] 65844 mg, IV Piggyback Dextrose 5% in Water [...] Seizure Procedure/ (more content not included)... Normal [facility] Comment on above: Result Comment: Elec tronically Signed By: Justice Browne MD\.br\Date and Time Signed: 03/07/23 17:43 EDT ED Patient Education Noteon 03-07-2023 ED Patient Education Note Normal [facility] ED Patient Summaryon 023 ED Patient Summary (Inserted Image. Nida ble to display) [place] [address] Patient Discharge Instructions Person Information Name: ROSE MARY SCHNEIDER Age: 17 Years Arrival Date: 03/07/2023 14:06:45 Discharge Diagnosis: 1:Intentional acetaminophen overdose; 2:Suicidal ideation; 3:Antihistamines overdose; 4:Depression; 5:Seizure; 6:Obesity; 7:On deep vein thrombosis (DVT) prophylaxis Primary Care Physician: Claudia Ellington MD Provider Information Primary Provider: Justice Browne MD Advanced Casket Assembler:None The exam and treatment you received in the Emergency Department were for an urgent problem and are not intended as complete care. It is important that you follow up with a doctor, nurse practitioner, or physician?s health care legal assistant for ongoing care. If your symptoms become [...] opioids can be used to help relieve vilgoxgg-rf-jnzhfl pain and are often prescribed following a [...] be struggling with addiction, tell your health child care teacher and ask for guidance or call [facility] National Helpline at 1-636-676-BWJA. v Source: [place] Department of Health and Human (more content not included)... Normal [facility] Ethanolon 03-07-2023 Ethanol [Mass/Vol] mg/dL Normal <=[address] [facility] Comment on above: Performed By: #### 2 279755 #### [facility] [address] [place] [address] HEMATOLOGYOrdered By: SYSTEM SYSTEM on 03-07-2023 Basophils/100 [...] E9/L Normal 4.0 - 11.0 E9/L [facility] HemeAutoSS Hep Func Panelon 03-07-2023 Albumin [Mass/Vol] 3.2 g/dL Low 3.3-5.[address] [facility] Comment on above: Performed By: #### 2 810070, 4825873 #### [facility] [address] [place] [address] Albumin/Globulin (S) [Mass conc ratio] 0.7 Low 1.1-2.[address] [facility] Comment on above: Performed By: #### 2 119698, 9746939 #### [facility] [address] [place] [address] ALP [Catalytic activity/Vol] 45 Int._Unit/L Normal 21-[address] [facility] Comment on above: Performed By: #### 2 155159, 4351833 #### [facility] [address] [place] [address] ALT No additional P-5'-P [Catalytic activity/Vol] 12 Int._Unit/L Normal 6-[address] [facility] Comment on above: Performed By: #### 2 519449, 2647866 #### [facility] [address] [place] [address] AST [Catalytic activity/Vol] 16 Int._Unit/L Normal 5-[address] [facility] Comment on above: Performed By: #### 2 521689, 2539660 #### [facility] [address] [place] [address] Bilirubin [Mass/Vol] 0.2 mg/dL Normal 0.0-1.1 [facility] Comment on above: Performed By: #### 2 064112, 1085778 #### [facility] [address] [place] [address] Bilirubin.indirect [Mass or moles/Vol] UTC Abnormal 0.1-0.[address] [facility] Comment on above: Result Comment: Resu lt verified by Discern Rule. Performed result UTC (Unable to Calculate) was sent as an Alpha code due the inability to calculate a valid numeric value. Performed By: #### 2 710593, 6099631 #### [facility] [address] [place] [address] Globulin (S) [Mass/Vol] 4.6 g/dL High 1.4-4.[address] [facility] Comment on above: Performed By: #### 2 271936, 6423852 #### [facility] [address] [place] [address] Protein [Mass/Vol] 7.8 g/dL Normal 6.0-7.[address] [facility] Comment on above: Performed By: #### 2 412198, 1692322 #### [facility] [address] [place] [address] Bilirubin.direct [Mass/Vol] mg/dL Normal 0.1-0.[address] [facility] Comment on above: Performed By: #### 2 627486, 1277628 #### [facility] [address] [place] [address] Bilirubin.indirect [Mass or moles/Vol] UTC Abnormal 0.1-0.[address] [facility] Comment on above: Result Comment: Resu lt verified by Discern Rule. Performed result UTC (Unable to Calculate) was sent as an Alpha code due the inability to calculate a valid numeric value. Performed By: #### 1 [id number], 2958931, 7413841, 8654079, 92327903, 2514531, 2839771, 7957200, 8940563 ####[facility] [address] [place] [address] Albumin [Mass/Vol] 3.1 g/dL Low 3.3-5.[address] [facility] Comment on above: Performed By: #### 1 [id number], 8678484, 0926427, 6350552, 52520079, 3354620, 4489597, 2137082, 3918341 ####[facility] [address] [place] [address] Albumin/Globulin (S) [Mass conc ratio] 0.7 Low 1.1-2.[address] [facility] Comment on above: Performed By: #### 1 6757566, 4044771, 8447809, 9944904, 06573280, 3204995, 7761188, 9533524, 5618743 ####[facility] [address] [place] [address] ALP [Catalytic activity/Vol] 48 Int._Unit/L Normal 21-[address] [facility] Comment on above: Performed By: #### 1 2418783, 2874955, 7807424, 9968376, 07841337, 5674611, 0419265, 2225727, 7112079 ####[address] [place] [address] ALT No additional P-5'-P [Catalytic activity/Vol] 11 Int._Unit/L Normal 6-[address] [facility] Comment on above: Performed By: #### 1 6989598, 0218382, 5452724, 4693906, 32891558, 5917546, 0589963, 2687531, 8650576 ####[address] [place] [address] AST [Catalytic activity/Vol] 16 Int._Unit/L Normal 5-[address] [facility] Comment on above: Performed By: #### 1 4971397, 4179101, 3892182, 8985119, 40036842, 8943876, 8632831, 0644424, 8583888 ####[facility] [address] [place] [address] Bilirubin [Mass/Vol] 0.5 mg/dL Normal 0.0-1.1 [facility] Comment on above: Performed By: #### 1 8224369, 4307597, 0412441, 3463168, 84319843, 0024193, 3244084, 9865218, 8108945 ####[facility] [address] [place] [address] Globulin (S) [Mass/Vol] 4.4 g/dL High 1.4-4.[address] [facility] Comment on above: Performed By: #### 1 4611983, 8256978, 3954862, 5668906, 18475829, 9756686, 6970211, 4633089, 4008014 ####[facility] [address] [place] [address] Protein [Mass/Vol] 7.5 g/dL Normal 6.0-7.[address] [facility] Comment on above: Performed By: #### 1 7047703, 7872105, 0839485, 7854141, 54544155, 0912799, 9503548, 5919418, 5377451 ####[facility] [address] [place] [address] Bilirubin.direct [Mass/Vol] mg/dL Normal 0.1-0.[address] [facility] Comment on above: Performed By: #### 1 0380553, 0925486, 6004887, 2638209, 51922269, 6704277, 0117788, 0209026, 2979624 ####[facility] [address] [place] [address] Lipase Levelon 03-07-2023 Lipase [Catalytic activity/Vol] 24 U/L Normal 13-[address] [facility] Comment on above: Performed By: #### 1 4985447, 1429754, 9395680, 8267249, 86550992, 7021542, 2995394, 2447750, 6898232 #### [facility] [address] [place] [address] Monitor Recordon 03-07-2023 Monitor Record [id number]#[id number]:[address] [facility] Monitor Record [id number]#[id number]:[address] [facility] Monitor Record [id number]#[id number]:[address] [facility] Pre-Arrival Noteon 3 Pre-Arrival Note Pre-Arrival Summary Name: , Current Date: 03/07/2023 14:11:15 EDT Gender: Date of : Age: 17 Pre-Arrival Type: EMS ETA: 03/07/2023 14:33:00 EDT Primary Care Physician: Presenting Problem: overdose tylenol PM Pre-Arrival User: Julianne Sanford RN Referring Source: Location: [place] Completion Date/Time: 03/07/2023 14:03:00 [facility] Emergency Department Pre-Hospital Report Form ____ Vital Signs: Pre-Hospital Report: Treatment in Route: Response to Treatment: Misc. Issues: Normal [facility] Progress Note-Nurseon 2022 Progress Note-Nurse Poison Control aj d and spoke with Chiquis who verbalized [address] Browne aware Normal [facility] SEROLOGYOrdered By: Kizzy Newby on 03-07-2023 Beta hCG Ql Negative (03/07/23 2:43 PM) Normal [facility] Man Sero Salicylateon 03-07-2023 Salicylates [Mass/Vol] mg/dL Low 6-29 [facility] Comment on above: Performed By: #### 1 1708818, 2318327, 6912415, 5309829, 61543334, 0974844, 9511196, 4106640, 6808940 #### [facility] [address] [place] [address] U Drug Screenon 03-07-2023 Amphetamines Screen method >1000 ng/mL Ql (U) Negative Normal Negative [facility] Comment on above: Result Comment: Nega tive Cutoff: <1000 ng/mL Performed By: #### 2 713476 #### [facility] [address] [place] [address] Barbiturates Screen Ql (U) Negative Normal Negative [facility] Comment on above: Result Comment: Nega tive Cutoff: <200 ng/mL Performed By: #### 2 521548 #### [facility] [address] [place] [address] Benzodiazepines Ql (U) Negative Normal Negative [facility] Comment on above: Result Comment: Nega tive Cutoff: <200 ng/mL Performed By: #### 2 939918 #### [facility] [address] [place] [address] Cocaine Ql (U) Negative Normal Negative [facility] Comment on above: Result Comment: Nega tive Cutoff: <300 ng/mL Performed By: #### 2 633851 #### [facility] [address] [place] [address] Opiates Screen Ql (U) Negative Normal Negative [facility] Comment on above: Result Comment: Nega tive Cutoff: <300 ng/mL Performed By: #### 2 778246 #### [facility] [address] [place] [address] Phencyclidine Screen method >25 ng/mL Ql (U) Negative Normal Negative [facility] Comment on above: Result Comment: Nega tive Cutoff: <25 ng/mL These drug screen results are to be used for medical (i.e., treatment) purposes only. Unconfirmed drug screening results must not be used for non-medical purposes (e.g., employment testing, legal testing). Performed By: #### 2 611199 #### [facility] [address] [place] [address] Tetrahydrocannabinol Screen method >50 ng/mL Ql (U) Negative Normal Negative [facility] Comment on above: Result Comment: Nega tive Cutoff: <50 ng/mL Performed By: #### 2 349562 #### [facility] [address] [place] [address] XR Chest Single Viewon 03-07 XR Chest [...] mGy = na DAP = na Normal [facility] eGFRon 03-07-2023 GFR/1.73 sq M.predicted among non-blacks MDRD (S/P/Bld) [Vol rate/Area] 95 mL/min/1.73 m2 Normal >=[address] [facility] Comment on above: Order Comment: Order added by Discern Expert. Result Comment: Corporate Quality Assurance Manager marleny kidney disease could be indicated at eGFR's of less than 60 mL/min/1.73m2. Kidney failure is indicated at less than 15 mL/min/1.73m2. Performed By: #### 1 7050134, 6770789, 9643691, 4191522, 08740700, 7544463, 7638982, 0595641, 0226695 ####[facility] [address] [place] [address] B hCG Qualon 02-27-2023 Beta hCG Ql Negative Normal [facility] Comment on above: Performed By: #### 2 247625, 2105422 #### [facility] [address] [place] [address] Consent for Treatmenton 02-01 Consent for Treatment [id number]#1.00CD:[address] [facility] Physician Orderon 02-27-2023 Physician Order [id number]#1.00CD:[address] [facility] CHEMISTRYOrdered By: SYSTEM SYSTEM on 11-13-2022 [...] hCG Ql Negative (11/13/22 2:56 PM) Normal [facility] Man Sero URINALYSISOrdered By: Marilyn Rivas on [...] PM) Normal Negative [facility] UA Auto SS [place].plasma/[place] .RBC (Bld) [Mass ratio] 0-3 /HPF Normal [...] [facility] UA Auto SS Urobilinogen Qn (U) 0.9653278 {Ed'U}/dL Normal 0.0 - 1.0 EU/dL [facility] Auto SS WBC Auto Ql (U) Trace *ABN* (11/13/22 2:29 PM) Invalid Interpretation Code Negative [facility] UA Auto SS WBC LM.HPF (Urine sed) [#/Area] 0-5 /HPF Normal 0-5/HPF [facility] UA Auto SS CBC AUTO DIFFon 11-05-2022 BASO # 0.0 103/ul Normal 0.0-0.1 [facility] Comment on above: Performed By: #### C BC #### [facility] [address] [address] [address] Tara Jackson Basophils/100 WBC (Bld) 0.5 % Normal 0.2-2.0 [facility] Comment on above: Performed By: #### C BC #### [facility] [address] [address] [address] Tara Jackson EO # 0.3 103/ul Normal 0.0-0.7 [facility] Comment on above: Performed By: #### C BC #### [facility] [address] [address] [address] Tara Jackson Eosinophils/100 WBC (Bld) 4.9 % Normal 0.9-7.0 [facility] Comment on above: Performed By: #### C BC #### [facility] [address] [place] [address] Dr. Tara Jackson Erythrocyte distribution width (RBC) [Ratio] 12.8 % Normal 11.0-15.0 [facility] Comment on above: Performed By: #### C BC #### [facility] [address] [place] [address] Dr. Tara Jackson Hematocrit (Bld) [Volume fraction] 35.8 % Critically low 36.0-48.0 [facility] Comment on above: Performed By: #### C BC #### [facility] [address] [place] [address] Dr. Tara Jackson Hemoglobin (Bld) [Mass/Vol] 11.8 g/dL Critically low 12.0-16.0 [facility] Comment on above: Performed By: #### C BC #### [facility] [address] [place] [address] Dr. Tara Jackson IG # 0.01 10e3/ul Normal 0.00-0.03 [facility] Comment on above: Performed By: #### C BC #### [facility] [address] [address] [address] Tara Jackson IG % 0.2 % Normal 0.0-0.5 [facility] Comment on above: Performed By: #### C BC #### [facility] [address] [place] [address] Dr. Tara Jackson LYMPH # 1.7 103/ul Normal 1.2-3.8 [facility] Comment on above: Performed By: #### C BC #### [facility] [address] [place] [address] Dr. Tara Jackson Lymphocytes/100 WBC (Bld) 30.2 % Normal 20.5-60.0 [facility] Comment on above: Performed By: #### C BC #### [facility] [address] [place] [address] Dr. Tara Jackson MANUAL DIFF REQ NO Normal [facility] Comment on above: Performed By: #### C BC #### [facility] [address] [place] [address] Dr. Tara Jackson MCH (RBC) [Entitic mass] 27.6 pg Normal 26.7-34.0 [facility] Comment on above: Performed By: #### C BC #### [facility] [address] [place] [address] Dr. Tara Jackson MCHC (RBC) [Mass/Vol] 33.0 g/dL Normal 29.9-35.2 [facility] Comment on above: Performed By: #### C BC #### [facility] [address] [place] [address] Dr. Tara Jackson MCV (RBC) [Entitic vol] 83.8 fL Normal 79.1-95.6 [facility] Comment on above: Performed By: #### C BC #### [facility] [address] [place] [address] Dr. Tara Jackson MONO # 0.5 103/ul Normal 0.3-0.8 [facility] Comment on above: Performed By: #### C BC #### [facility] [address] [place] [address] Dr. Tara Jackson Monocytes/100 WBC (Bld) 7.9 % Normal 1.7-12.0 [facility] Comment on above: Performed By: #### C BC #### [facility] [address] [place] [address] Dr. Tara Jackson NEUT # 3.2 103/ul Normal 1.4-6.5 [facility] Comment on above: Performed By: #### C BC #### [facility] [address] [place] [address] Dr. Tara Jackson Neutrophils/100 WBC (Bld) 56.3 % Normal 43.0-75.0 [facility] Comment on above: Performed By: #### C BC #### [facility] [address] [place] [address] Dr. Tara Jackson Platelet mean volume (Bld) [Entitic vol] 9.0 fL Critically low 9.5-13.5 [facility] Comment on above: Performed By: #### C BC #### [facility] [address] [place] [address] Dr. Tara Jackson PLT 373 103/ul Normal 150-450 [facility] Comment on above: Performed By: #### C BC #### [facility] [address] [place] [address] Dr. Tara Jackson RBC 4.27 106/ul Normal 3.40-5.30 [facility] Comment on above: Performed By: #### C BC #### [facility] [address] [place] [address] Dr. Tara Jackson WBC 5.7 103/ul Normal 4.0-11.0 [facility] Comment on above: Performed By: #### C BC #### [facility] [address] [place] [address] Dr. 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 Admission #: [id number] Family : TEENA TRAN . Order #: [id number] CLICK HERE TO VIEW EXAM ECHOCARDIOGRAM REPORT [...] Tafoya M.D. on 11/06/2022 at 18:40 Normal [facility] PREG HCG QUALon 11-05-2022 , QUAL Negative Normal NEGATIVE [facility] Comment on above: Performed By: #### C BC #### [facility] [address] [place] [address] Dr. Tara Jackson PROF CHEM 8 (BAS METB)on Anion gap [Moles/Vol] 11.4 mmol/L Normal [facility] Comment on above: Performed By: #### C VDTBH #### [facility] [address] [address] [address] Tara Jackson Calcium [Mass/Vol] 8.5 mg/dL Normal 8.5-10.1 [facility] Comment on above: Performed By: #### C VDTBH #### [facility] [address] [address] [address] Tara Jackson Chloride [Moles/Vol] 103 mmol/L Normal 98-107 [facility] Comment on above: Performed By: #### C VDTBH #### [facility] [address] [place] [address] Dr. Tara Jackson CO2 [Moles/Vol] 27.5 mmol/L Normal 21.0-32.0 [facility] Comment on above: Performed By: #### C VDTBH #### [facility] [address] [place] [address] Dr. Tara Jackson Creatinine [Mass/Vol] 0.67 mg/dL Normal 0.55-1.02 [facility] Comment on above: Performed By: #### C VDTBH #### [facility] [address] [place] [address] Dr. Tara Jackson Glucose [Mass/Vol] 93 mg/dL Normal 74-106 [facility] Comment on above: Performed By: #### C VDTBH #### [facility] [address] [place] [address] Dr. Tara Jackson Potassium [Moles/Vol] 3.9 mmol/L Normal 3.5-5.1 [facility] Comment on above: Performed By: #### C VDTBH #### [facility] [address] [place] [address] Dr. Tara Jackson Sodium [Moles/Vol] 138 mmol/L Normal 136-145 [facility] Comment on above: Performed By: #### C VDTBH #### [facility] [address] [place] [address] Dr. Tara Jackson Urea nitrogen [Mass/Vol] 15.0 mg/dL Normal 6.4-19.3 [facility] Comment on above: Performed By: #### C VDTBH #### [facility] [address] [place], [place] [address] Dr. Tara Jackson Urea nitrogen/Creatinine [Mass ratio] 22.4 mg/mg Normal [facility] Comment on above: Performed By: #### C VDTBH #### [facility] [address] [place], [place] [address] Dr. Tara Jackson CHEMISTRYOrdered By: SYSTEM SYSTEM [...] 2.5 second(s) [facility] Auto Coag HEMATOLOGYOrdered By: [place] SYSTEM on 10-10-2022 Basophils/100 WBC (Bld) 0.5 [...] [place] (10/10/22 10:09 PM) Normal [facility] Man Sero Rapid COV Int POS [place]l [place] (10/10/22 10:09 PM) Normal [facility] Man Sero SARS-CoV+SARS-CoV-2 (COVID-19) Ag IA.rapid Ql (Resp) Not Detected (10/10/22 10:09 PM) Normal Not Detected [facility] Man Sero SEROLOGYOrdered By: Ruth orellana on 10-10-2022 HCG.beta subunit (U) [Moles/Vol] Negative Normal [facility] Man Sero CHEMISTRYOrdered By: SYSTEM SYSTEM on [...] (Urine sed) [#/Area] 0-2 /HPF Normal 0-2/HPF [facility] UA Auto SS Glucose Test strip (U) [Mass/Vol] Negative (10/06/22 1:20 AM) Normal Negative [facility] Auto SS Hemoglobin Ql (U) Trace *ABN* (10/06/22 1:20 AM) Invalid Interpretation Code Negative [facility] UA Auto SS Ketones (U) [Mass/Vol] Negative (10/06/22 1:20 AM) Normal Negative [facility] UA Auto SS [place].plasma/[place] .RBC (Bld) [Mass ratio] 0-3 /HPF Normal 0-3/HPF [facility]A Auto SS Mucus Ql (Urine sed) 2+ (10/06/22 1:20 AM) Normal [facility] UA Auto SS Nitrite Ql (U) Negative (10/06/22 1:20 AM) Normal Negative [facility] UA Auto SS pH (U) 6.0 *NA* (10/06/22 1:20 AM) Invalid Interpretation Code 5.0 - 9.0 [facility] UA Auto SS Protein (U) [Mass/Vol] Negative (10/06/22 1:20 AM) Normal Negative [facility] UA Auto SS Specific gravity (U) [Rel density] >=1.030 *NA* (10/06/22 1:20 AM) Invalid Interpretation Code 1.005 - 1.030 [facility] UA Auto SS UA Spec Desc Clean Catch (10/06/22 1:20 AM) Normal [facility] UA Auto SS Urobilinogen Qn (U) 0.3069890 {Ed'U}/dL Normal 0.0 - 1.0 EU/dL [facility] UA Auto SS WBC Auto Ql (U) Negative (10/06/22 1:20 AM) Normal Negative [facility] UA Auto SS WBC LM.HPF (Urine sed) [#/Area] 0-5 /HPF Normal 0-5/HPF [facility] UA Auto SS CHEMISTRYOrdered By: Lab ROP User on 10-05-2022 Glucose [Mass/Vol] 131 mg/dL High 55 - 99 mg/dL [facility] POC Subsection Comment on above: Result Comment: Shanique percy Meter POC Device SN [id number] Invalid Interpretation Code [facility] POC Subsection POC User ID [id number] Invalid Interpretation Code [facility] POC Subsection POC Username CHRISTIANO GARCIA Invalid Interpretation Code [facility] POC Subsection LEVETIRACETAM, SERUM OR PLAS MAon 09-27-2022 Levetiracetam, S 13.6 ug/mL Normal 10.0-40.0 [facility] Comment on above: Performed By: #### C BC #### [facility] [address] [place] [address] Dr. Tara Jackson INSULINon 09-26-2022 Insulin 21.0 uIU/mL Normal 2.6-24.9 [facility] Comment on above: Performed By: #### I NSULIN #### [facility] [address] [place] [address] Dr. Tara Jackson BILIRUBIN CONJUGATED (DIRECT )on 09-25-2022 BILI, CONJUGATED 0.1 mg/dL Normal 0.0-0.2 [facility] Comment on above: Performed By: #### C VDTBH #### [facility] [address] [place] [address] Dr. Tara Jackson CBC AUTO DIFFon 09-25-2022 BASO # 0.0 103/ul Normal 0.0-0.1 [facility] Comment on above: Performed By: #### C VDTBH #### [facility] [address] [place] [address] Dr. Tara Jackson Basophils/100 WBC (Bld) 0.6 % Normal 0.2-2.0 [facility] Comment on above: Performed By: #### C VDTBH #### [facility] [address] [place] [address] Dr. Tara Jackson EO # 0.3 103/ul Normal 0.0-0.7 [facility] Comment on above: Performed By: #### C VDTBH #### [facility] [address] [place] [address] Dr. Tara Jackson Eosinophils/100 WBC (Bld) 4.5 % Normal 0.9-7.0 [facility] Comment on above: Performed By: #### C VDTBH #### [facility] [address] [place] [address] Dr. Tara Jackson Erythrocyte distribution width (RBC) [Ratio] 12.2 % Normal 11.0-15.0 [facility] Comment on above: Performed By: #### C VDTBH #### [facility] [address] [place] [address] Dr. Tara Jackson Hematocrit (Bld) [Volume fraction] 38.4 % Normal 36.0-48.0 [facility] Comment on above: Performed By: #### C VDTBH #### [facility] [address] [place] [address] Dr. Tara Jackson Hemoglobin (Bld) [Mass/Vol] 13.0 g/dL Normal 12.0-16.0 [facility] Comment on above: Performed By: #### C VDTBH #### [facility] [address] [place] [address] Dr. Tara Jackson IG # 0.01 10e3/ul Normal 0.00-0.03 [facility] Comment on above: Performed By: #### C VDTBH #### [facility] [address] [place] [address] Dr. Tara Jackson IG % 0.2 % Normal 0.0-0.5 [facility] Comment on above: Performed By: #### C VDTBH #### [facility] [address] [place] [address] Dr. Tara Jackson LYMPH # 1.8 103/ul Normal 1.2-3.8 [facility] Comment on above: Performed By: #### C VDTBH #### [facility] [address] [place] [address] Dr. Tara Jackson Lymphocytes/100 WBC (Bld) 28.7 % Normal 20.5-60.0 [facility] Comment on above: Performed By: #### C VDTBH #### [facility] [address] [place] [address] Dr. Tara Jackson MANUAL DIFF REQ NO Normal [facility] Comment on above: Performed By: #### C VDTBH #### [facility] [address] [place] [address] Dr. Tara Jackson MCH (RBC) [Entitic mass] 28.6 pg Normal 26.7-34.0 [facility] Comment on above: Performed By: #### C VDTBH #### [facility] [address] [place] [address] Dr. Tara Jackson MCHC (RBC) [Mass/Vol] 33.9 g/dL Normal 29.9-35.2 [facility] Comment on above: Performed By: #### C VDTBH #### [facility] [address] [place] [address] Dr. Tara Jackson MCV (RBC) [Entitic vol] 84.4 fL Normal 79.1-95.6 [facility] Comment on above: Performed By: #### C VDTBH #### [facility] [address] [place] [address] Dr. Tara Jackson MONO # 0.4 103/ul Normal 0.3-0.8 [facility] [facility] Comment on above: Performed By: #### C VDTBH #### [facility] [address] [place] [address] Dr. Tara Jackson Monocytes/100 WBC (Bld) 6.5 % Normal 1.7-12.0 [facility] Comment on above: Performed By: #### C VDTBH #### [facility] [address] [place] [address] Dr. Tara Jackson NEUT # 3.7 103/ul Normal 1.4-6.5 [facility] Comment on above: Performed By: #### C VDTBH #### [facility] [address] [place] [address] Dr. Tara Jackson Neutrophils/100 WBC (Bld) 59.5 % Normal 43.0-75.0 [facility] Comment on above: Performed By: #### C VDTBH #### [facility] [address] [place] [address] Dr. Tara Jackson Platelet mean volume (Bld) [Entitic vol] 9.0 fL Critically low 9.5-13.5 [facility] Comment on above: Performed By: #### C VDTBH #### [facility] [address] [address] [address] Tara Jackson PLT 401 103/ul Normal 150-450 [facility] Comment on above: Performed By: #### C VDTBH #### [facility] [address] [place] [address] Dr. Tara Jackson RBC 4.55 106/ul Normal 3.40-5.30 [facility] Comment on above: Performed By: #### C VDTBH #### [facility] [address] [place] [address] Dr. Tara Jackson WBC 6.2 103/ul Normal 4.0-11.0 [facility] Comment on above: Performed By: #### C VDTBH #### [facility] [address] [place] [address] Dr. Tara Jackson FREE THYROXINE INDEX T7on FTI 2.77 Normal 1.30-4.50 [facility] Comment on above: Performed By: #### C BC #### [facility] [address] [place] [address] Dr. Tara Jackson T3U 36.0 % Normal 30.0-39.0 [facility] Comment on above: Performed By: #### C BC #### [facility] [address] [place] [address] Dr. Tara Jackson T4 [Mass/Vol] 7.70 ug/dL Normal 5.40-10.60 [facility] Comment on above: Performed By: #### C BC #### [facility] [address] [place] [address] Dr. Tara Jackson GLYCOHEMOGLOBIN A1Con 2022 ADA RECOMMENDATION SEE BELOW Normal [facility] Comment on above: Result Comment: ADA RECOMMENDED LIMIT 4.0 - 6.0 ADA THERAPEUTIC TARGET < 7.0 ACTION SUGGESTED > 7.0 Performed By: #### A 1C #### [facility] [address] [place] [address] Dr. Tara Jackson Glucose [Mass/Vol] 103 mg/dL Normal [facility] Comment on above: Performed By: #### A 1C #### [facility] [address] [place] [address] Dr. Tara Jackson HbA1c (Bld) [Mass fraction] 5.2 % Normal 4.5-6.2 [facility] Comment on above: Performed By: #### A 1C #### [facility] [address] [place] [address] Dr. Tara Jackson IRONon 09-25-2022 Iron [Mass/Vol] 33.0 ug/dL Critically low 50.0-170.0 [facility] Comment on above: Performed By: #### C VDTB #### [facility] [address] [place] [address] Dr. Tara Jackson LIPID PROFILEon 09-25-2022 CHOL-HDL RATIO NORM SEE BELOW Normal [facility] Comment on above: Result Comment: 3.3 - 4.4 LOW RISK 4.4 - 7.1 AVERAGE RISK 7.1 - 11.0 MODERATE RISK >11.0 HIGH RISK Performed By: #### C BC #### [facility] [address] [place] [address] Dr. Tara Jackson Cholesterol [Mass/Vol] 189 mg/dL Normal 104-227 [facility] Comment on above: Performed By: #### C BC #### [facility] [address] [place] [address] Dr. Tara Jackson Cholesterol in HDL [Mass/Vol] 36 mg/dL Normal 29-69 [facility] Comment on above: Performed By: #### C BC #### [facility] [address] [place] [address] Dr. Tara Jackson Cholesterol in LDL [Mass/Vol] 128.4 mg/dL Normal 46.0-140.0 [facility] Comment on above: Performed By: #### C BC #### [facility] [address] [place] [address] Dr. Tara Jackson Cholesterol.total/Chol esterol in HDL [Mass ratio] 5.3 {ratio} Normal [facility] Comment on above: Performed By: #### C BC #### [facility] [address] [place] [address] Dr. Tara Jackson HDL NORMAL > or = 60 mg/dl - LO W CARDIOVASCULAR RISK <40 mg/dl - HIGH CARDIOVASCULAR RISK Normal [facility] Comment on above: Performed By: #### C BC #### [facility] [address] [address] [address] Tara Jackson LDL CALC NORMAL SEE BELOW Normal [facility] Comment on above: Result Comment: <100 mg/dl OPTIMAL 100 - 129 mg/dl NEAR OR ABOVE OPTIMAL 130 - 159 mg/dl BORDERLINE HIGH 160 - 189 mg/dl HIGH >190 mg/dl VERY HIGH Performed By: #### C BC #### [facility] [address] [address] [address] Tara Jackson Triglyceride [Mass/Vol] 123 mg/dL Normal 53-208 [facility] Comment on above: Performed By: #### C BC #### [facility] [address] [place] [address] Dr. Tara Jackson VLDL CALC 24.6 mg/dL Normal [facility] Comment on above: Performed By: #### C BC #### [facility] [address] [address] [address] Tara Jackson PROF 14(COMP METB)on 023 Albumin [Mass/Vol] 3.2 g/dL Critically low 3.4-5.0 [facility] Comment on above: Performed By: #### C BC #### [facility] [address] [place] [address] Dr. Tara Jackson Albumin/Globulin [Mass ratio] 0.7 {ratio} Normal [facility] Comment on above: Performed By: #### C BC #### [facility] [address] [place] [address] Dr. Tara Jackson ALP [Catalytic activity/Vol] 80 U/L Normal 65-260 [facility] Comment on above: Performed By: #### C BC #### [facility] [address] [address] [address] Tara Jackson ALT [Catalytic activity/Vol] 18 U/L Normal 14-59 [facility] Comment on above: Performed By: #### C BC #### [facility] [address] [place] [address] Dr. Tara Jackson Anion gap [Moles/Vol] 9.0 mmol/L Normal [facility] Comment on above: Performed By: #### C BC #### [facility] [address] [place] [address] Dr. Tara Jackson AST [Catalytic activity/Vol] 18 U/L Normal 15-37 [facility] Comment on above: Performed By: #### C BC #### [facility] [address] [place] [address] Dr. Tara Jackson Bilirubin [Mass/Vol] 0.2 mg/dL Normal 0.2-1.0 [facility] Comment on above: Performed By: #### C BC #### [facility] [address] [place] [address] Dr. Tara Jackson Calcium [Mass/Vol] 9.1 mg/dL Normal 8.5-10.1 [facility] Comment on above: Performed By: #### C BC #### [facility] [address] [place] [address] Dr. Tara Jackson Chloride [Moles/Vol] 101 mmol/L Normal 98-107 [facility] Comment on above: Performed By: #### C BC #### [facility] [address] [place] [address] Dr. Tara Jackson CO2 [Moles/Vol] 30.2 mmol/L Normal 21.0-32.0 [facility] Comment on above: Performed By: #### C BC #### [facility] [address] [place] [address] Dr. Tara Jackson Creatinine [Mass/Vol] 0.80 mg/dL Normal 0.55-1.02 [facility] Comment on above: Performed By: #### C BC #### [facility] [address] [place] [address] Dr. Tara Jackson Globulin (S) [Mass/Vol] 4.3 g/dL Normal [facility] Comment on above: Performed By: #### C BC #### [facility] [address] [place] [address] Dr. Tara Jackson Glucose [Mass/Vol] 101 mg/dL Normal 74-106 [facility] Comment on above: Performed By: #### C BC #### [facility] [address] [place] [address] Dr. Tara Jackson Potassium [Moles/Vol] 4.2 mmol/L Normal 3.5-5.1 [facility] Comment on above: Performed By: #### C BC #### [facility] [address] [address] [address] Tara Jackson Protein [Mass/Vol] 7.5 g/dL Normal 6.4-8.2 [facility] Comment on above: Performed By: #### C BC #### [facility] [address] [place] [address] Dr. Tara Jackson Sodium [Moles/Vol] 136 mmol/L Normal 136-145 [facility] Comment on above: Performed By: #### C BC #### [facility] [address] [place] [address] Dr. Tara Jackson Urea nitrogen [Mass/Vol] 11.0 mg/dL Normal 6.4-19.3 [facility] Comment on above: Performed By: #### C BC #### [facility] [address] [place] [address] Dr. Tara Jackson Urea nitrogen/Creatinine [Mass ratio] 13.8 mg/mg Normal [facility] Comment on above: Performed By: #### C BC #### [facility] [address] [place] [address] Dr. Tara Jackson TSHon 09-25-2022 TSH 5.240 uIU/mL Critically high 0.516-4.130 [facility] Comment on above: Performed By: #### C BC #### [facility] [address] [place] [address] Dr. Tara Jackson [facility]on SARS-CoV-2 (COVID-19) RNA CHRISTIAN+probe Ql (Unsp spec) Not detected Normal NOT DETECTED [facility] Comment on above: Result Comment: This test is not yet approved or cleared by the [place] FDA. When there are no FDA-approved or cleared tests available, and other criteria are met, FDA can make tests available under an emergency access mechanism called an Emergency Use Authorization (EUA). The EUA for this test is supported by the [place] of Health and Human Service's (HHS's) declaration [...] SARS-CoV-2. Performed By: #### C VDTB #### [facility] [address] [place] [address] Dr. Tara Jackson INFLUENZA A [facility] B [facility]on 09-[facility] Normal [facility] Comment on above: Result Comment: Nega tive for Flu A protein angiten. Infection due to Flu A cannot be ruled out. Flu A angiten in the sample may be below the detection limit of the test. Performed By: #### I NFLUAB #### [facility] [address] [place] [address] Dr. T[facility] Normal [facility] Comment on above: Result Comment: Nega tive for Flu B protein antigen. Infection due to Flu B cannot be ruled out. Flu B antigen in the sample may be below the detection limit of the test. Performed By: #### I NFLUAB #### [facility] [address] [place] [address] Dr. Tara Jackson INFLUENZA A AG Negative Normal NEGATIVE SEE COMMENT [facility] Comment on above: Performed By: #### I NFLUAB #### [facility] [address] [place] [address] Dr. Tara Jakcson INFLUENZA B AG Negative Normal NEGATIVE SEE COMMENT [facility] Comment on above: Performed By: #### I NFLUAB #### [facility] [address] [place] [address] Dr. Tara Jackson Covid-19 PCR (CVDTB)on SARS-CoV-2 (COVID-19) RNA CHRISTIAN+probe Ql (Unsp spec) Not detected Normal NOT DETECTED [facility] Comment on above: Result Comment: [...] for this test is supported by the [place] of Health and Human Service's declaration that [...] By: #### C VDTBH #### [facility] [address] [place] [address] Dr. Tara Jackson INFLUENZA A AND B AGon 08-05 [facility] SEE BELOW Normal [facility] Comment on above: Result Comment: Nega tive for Flu A protein angiten. Infection due to Flu A cannot be ruled out. Flu A angiten in the sample may be below the detection limit of the test. Performed By: #### I NFLUAB #### [facility] [address] [place] [address] Dr. Tara Jackson INFLUBNEG SEE BELOW Normal [facility] Comment on above: Result Comment: Nega tive for Flu B protein antigen. Infection due to Flu B cannot be ruled out. Flu B antigen in the sample may be below the detection limit of the test. Performed By: #### I NFLUAB #### [facility] [address] [place] [address] Dr. Tara Jackson INFLUENZA A AG Negative Normal NEGATIVE SEE COMMENT [facility] Comment on above: Performed By: #### I NFLUAB #### [facility] [address] [address] [address] Tara Jackson INFLUENZA B AG Negative Normal NEGATIVE SEE COMMENT [facility] Comment on above: Performed By: #### I NFLUAB #### [facility] [address] [address] [address] Tara Jackson Albumin [Mass/volume] in Ser um or PlasmaOrdered By: Claudia Ellington on 07-31-2022 Albumin [Mass/Vol] 3.2 g/dL 3.2-5.5 [facility] Basophils Auto (Bld) [#/Vol] Ordered By: Claudia Ellington on 07-31-2022 Basophils (Bld) [#/Vol] 0.0 10*3/uL 0.0-0.1 [facility] Basophils/100 WBC Auto (Bld) Ordered By: Claudia Ellington on 07-31-2022 Basophils/100 WBC (Bld) 0.4 % . [facility] Cholesterol [Mass/volume] in Serum or PlasmaOrdered By: Claudia Ellington on 07-31-2022 Cholesterol [Mass/Vol] 264 mg/dL 140-200 [facility] Comment on above: Chol less than 200 m g/dl low riskChol 201-239 mg/dl borderline riskChol 240 mg/dl and greater high risk Cholesterol in LDL Calc [Mas s/Vol]Ordered By: Claudia Ellington on 07-31-2022 Cholesterol in LDL [Mass/Vol] 168 mg/dL 0-100 [facility] Comment on above: LDL ATP III CLASSIFI CATIONLDL less than 100 mg/dL OptimalLDL 100-129 mg/dL Near or above optimalLDL 130-159 mg/dL Borderline highLDL 160-189 mg/dL HighLDL greater than 189 mg/dL Very high Cholesterol in VLDL Calc [Ma ss/Vol]Ordered By: Claudia Ellington on 07-31-2022 Cholesterol in VLDL [Mass/Vol] 17 mg/dL [facility] Creatinine and Glomerular fi ltration rate.predicted panel (S/P/Bld)Ordered By: Claudia Ellington on 07-31-2022 Creatinine [Mass/Vol] 0.87 mg/dL 0.44-1.03 [facility] Eosinophils Auto (Bld) [#/Vo l]Ordered By: Claudia Ellington on 07-31-2022 Eosinophils (Bld) [#/Vol] 0.0 10*3/uL 0.0-0.7 [facility] Eosinophils/100 WBC Auto (Bl d)Ordered By: Claudia Ellington on 07-31-2022 Eosinophils/100 WBC (Bld) 0.5 % . [facility] Erythrocyte distribution wid th Auto (RBC) [Ratio]Ordered By: Claudia Ellington on 07-31-2022 Erythrocyte distribution width (RBC) [Ratio] 13.2 % 11.9-15.3 [facility] Estimated glomerular filtrat ion rate (GFR) non- AmericanOrdered By: Claudia Ellington on 07-31-2022 GFR/1.73 sq M.predicted among non-blacks MDRD (S/P/Bld) [Vol rate/Area] N/A [facility] Globulin Calc (S) [Mass/Vol] Ordered By: Claudia Ellington on 07-31-2022 Globulin (S) [Mass/Vol] 3.3 g/dL [facility] Glucose mean value [Mass/vol ume] in Blood Estimated from glycated hemoglobinOrdered By: Claudia Ellington on 07-31-2022 Average glucose Estimated from glycated hemoglobin (Bld) [Mass/Vol] 114 mg/dL [facility] Hematocrit Auto (Bld) [Volum e fraction]Ordered By: Claudia Ellington on 07-31-2022 Hematocrit (Bld) [Volume fraction] 38.5 % 36.0-46.0 [facility] Hemoglobin A1c percentageOrd ered By: Claudia Ellington on 07-31-2022 HbA1c (Bld) [Mass fraction] 5.6 % 4.3-5.6 [facility] Comment on above: Increased risk for d iabetes: 5.7 - 6.4diabetes: >6.4glycemic control for adults with diabetes: <7.0 Hemoglobin [Mass/volume] in BloodOrdered By: Claudia Ellington on 07-31-2022 Hemoglobin (Bld) [Mass/Vol] 12.7 g/dL 12.0-16.0 [facility] Iron [Mass/volume] in Serum or PlasmaOrdered By: Claudia Ellington on 07-31-2022 Iron [Mass/Vol] 74 ug/dL 40-150 [facility] Leukocytes [#/volume] correc gamaliel for nucleated erythrocytes in Blood by Automated counOrdered By: Claudia Ellington on 07-31-2022 WBC corrected for nucl RBC Auto (Bld) [#/Vol] 8.3 10*3/uL 4.5-13.5 [facility] Lymphocytes Auto (Bld) [#/Vo l]Ordered By: Claudia Ellington on 07-31-2022 Lymphocytes (Bld) [#/Vol] 2.3 10*3/uL 1.20-4.8 [facility] Lymphocytes/100 WBC Auto (Bl d)Ordered By: Claudia Ellington on 07-31-2022 Lymphocytes/100 WBC (Bld) 27.9 % . [facility] MCH Auto (RBC) [Entitic mass ]Ordered By: Claudia Ellington on 07-31-2022 MCH (RBC) [Entitic mass] 28.4 pg 25.0-35.0 [facility] MCHC Auto (RBC) [Mass/Vol]Or dered By: Claudia Ellington on 07-31-2022 MCHC (RBC) [Mass/Vol] 32.9 g/dL 31.0-37.0 [facility] MCV Auto (RBC) [Entitic vol] Ordered By: Claudia Ellington on 07-31-2022 MCV (RBC) [Entitic vol] 86.6 fL 78-102 [facility] Monocytes Auto (Bld) [#/Vol] Ordered By: Claudia Ellington on 07-31-2022 Monocytes (Bld) [#/Vol] 0.4 10*3/uL 0.1-1.00 [facility] Monocytes/100 WBC Auto (Bld) Ordered By: Claudia Ellington on 07-31-2022 Monocytes/100 WBC (Bld) 5.0 % . [facility] Neutrophils Auto (Bld) [#/Vo l]Ordered By: Claudia Ellington on 07-31-2022 Neutrophils (Bld) [#/Vol] 5.5 10*3/uL 1.2-7.7 [facility] Neutrophils/100 WBC Auto (Bl d)Ordered By: Claudia Ellington on 07-31-2022 Neutrophils/100 WBC (Bld) 66.2 % . [facility] No Panel InformationOrdered By: Claudia Ellington on 07-31-2022 Estimated GFR () N/A [facility] Creatinine Clearance (Chem N/A [facility] Nucleated erythrocytes [Pres ence] in Blood by Automated countOrdered By: Claudia Ellington on 07-31-2022 Nucleated RBC Auto Ql (Bld) 0.1 /100{WBC} 0-0.5 [facility] Platelet mean volume Auto (B ld) [Entitic vol]Ordered By: Claudia Ellington on 07-31-2022 Platelet mean volume (Bld) [Entitic vol] 7.5 fL 6.3-10.7 [facility] Platelets Auto (Bld) [#/Vol] Ordered By: Claudia Ellington on 07-31-2022 Platelets (Bld) [#/Vol] 420 10*3/uL 150-450 [facility] Protein [Mass/volume] in Ser um or PlasmaOrdered By: Claudia Ellington on 07-31-2022 Protein [Mass/Vol] 6.5 g/dL 6.1-7.9 [facility] RBC Auto (Bld) [#/Vol]Ordere d By: Claudia Ellington on 07-31-2022 RBC (Bld) [#/Vol] 4.45 10*6/uL 4.10-5.10 [facility] Serum or plasma alanine lucas otransferase measurement without P-5'-P (enzymatic activiOrdered By: Claudia Ellington on 07-31-2022 ALT No additional P-5'-P [Catalytic activity/Vol] 12 U/L 10-60 [facility] Serum or plasma albumin/glob ulin mass ratioOrdered By: Claudia Ellington on 07-31-2022 Albumin/Globulin [Mass ratio] 1.0 {ratio} [facility] Serum or plasma alkaline rosmery sphatase measurement (enzymatic activity/volume)Ordered By: Claudia Ellington on 07-31-2022 ALP [Catalytic activity/Vol] 49 U/L 32-92 [facility] Serum or plasma anion gap de terminationOrdered By: Claudia Ellington on 07-31-2022 Anion gap [Moles/Vol] 11.2 mmol/L 6.0-15.0 [facility] Serum or plasma aspartate am inotransferase measurement (enzymatic activity/volume)Ordered By: Claudia Ellington on 07-31-2022 AST [Catalytic activity/Vol] 13 U/L 10-42 [facility] Serum or plasma calcium trish urement (mass/volume)Ordered By: Claudia Ellington on 07-31-2022 Calcium [Mass/Vol] 9.2 mg/dL 8.2-10.2 [facility] Serum or plasma chloride klarissa surement (moles/volume)Ordered By: Claudia Ellington on 07-31-2022 Chloride [Moles/Vol] 104 mmol/L 95-114 [facility] Serum or plasma glucose trish urement (mass/volume)Ordered By: Claudia Ellington on 07-31-2022 Glucose [Mass/Vol] 96 mg/dL 70-100 [facility] Comment on above: ADA recommended refe rence rangeRandom Glucose Reference Range is dependent on time and content of last meal. Glucose of more than 200 mg/dL in a nonstressed, ambulatory subject supports the diagnosis of Diabetes Mellitus. Serum or plasma high density lipoprotein (HDL) cholesterol measurementOrdered By: Claudia Ellington on 07-31-2022 Cholesterol in HDL [Mass/Vol] 78 mg/dL 35-85 [facility] Comment on above: HDL CHOL ATP-III CLA SSIFICATION Cardiovascular RiskHDL > or equal to 60 mg/dL LOWHDL < 40 mg/dL HIGH Serum or plasma potassium me asurement (moles/volume)Ordered By: Claudia Ellington on 07-31-2022 Potassium [Moles/Vol] 4.0 mmol/L 3.5-5.1 [facility] Serum or plasma sodium measu rement (moles/volume)Ordered By: Claudia Ellington on 07-31-2022 Sodium [Moles/Vol] 137 mmol/L 138-145 [facility] Serum or plasma total biliru bin measurement (mass/volume)Ordered By: Claudia Ellington on 07-31-2022 Bilirubin [Mass/Vol] 0.5 mg/dL 0.3-1.2 [facility] Serum or plasma total carbon dioxide measurement (moles/volume)Ordered By: Claudia Ellington on 07-31-2022 CO2 [Moles/Vol] 25.8 mmol/L 22.0-30.0 [facility] Serum or plasma total choles terol/high density lipoprotein (HDL) cholesterol mass ratOrdered By: Claudia Ellington on 07-31-2022 Cholesterol.total/Chol esterol in HDL [Mass ratio] 3.4 {ratio} <5.0 [facility] Serum or plasma urea nitroge n measurement (mass/volume)Ordered By: Claudia Ellington on 07-31-2022 Urea nitrogen [Mass/Vol] 18 mg/dL 9-23 [facility] TSH DL <= 0.005 mIU/L QnOrde red By: Claudia Ellington on 07-31-2022 TSH Qn 3.47 m[IU]/L 0.45-5.33 [facility] Thyroxine (T4) free [Mass/vo lume] in Serum or PlasmaOrdered By: Claudia Ellington on 07-31-2022 Free T4 [Mass/Vol] 1.03 ng/dL 0.61-1.12 [facility] Triglyceride [Mass/volume] i n Serum or PlasmaOrdered By: Claudia Ellington on 07-31-2022 Triglyceride [Mass/Vol] 89 mg/dL 35-149 [facility] Comment on above: TRIG ATP III CLASSIF ICATIONTRIG less than 150 mg/dL NormalTRIG 150-199 mg/dL Borderline highTRIG 200-500 mg/dL High TRIG greater than 500 mg/dL Very highStandard traceable to the Center for Disease Conrtrol and Prevention (CDC) test method. WBC Auto (Bld) [#/Vol]Ordere d By: Claudia Ellington on 07-31-2022 WBC (Bld) [#/Vol] 8.3 10*3/uL 4.5-13.5 [facility] Covid-19 PCR (CVDTBH)on 07-04 SARS-CoV-2 (COVID-19) RNA CHRISTIAN+probe Ql (Unsp spec) Not detected Normal NOT DETECTED [facility] Comment on above: Result Comment: [...] for this test is supported by the [employer] of Health and Human Service's declaration that [...] By: #### C VDTBH #### [facility] [address] [place] [address] Dr. Tara Jackson INFLUENZA A AND B AGon 07-23 INFLUENZA A AG Negative Normal NEGATIVE SEE COMMENT [facility] Comment on above: Performed By: #### I NFLUAB #### [facility] [address] [place] [address] Dr. Tara Jackson INFLUENZA B AG Negative Normal NEGATIVE SEE COMMENT [facility] Comment on above: Performed By: #### I NFLUAB #### [facility] [address] [place] [address] Dr. Tara Jackson INTERNAL CONTROLS Within Normal Limits Normal Wi thin Normal Limits [facility] Comment on above: Performed By: #### I NFLUAB #### [facility] [address] [place] [address] Dr. Tara Jackson RSVon 07-23-2022 RSV AG Negative Normal NEGATIVE [facility] Comment on above: Performed By: #### R SV #### [facility] [address] [address] [address] Tara Jackson CHEMISTRYOrdered By: SYSTEM SYSTEM [...] 10 - 20 [facility] Remisol Covid-19 PCR ([facility])on SARS-CoV-2 (COVID-19) RNA CHRISTIAN+probe Ql (Unsp spec) Not detected Normal NOT DETECTED [facility] Comment on above: Result Comment: This test is not yet approved or cleared by the [place] FDA. When there are no FDA-approved or cleared tests available, and other criteria are met, FDA can make tests available under an emergency access mechanism called an Emergency Use Authorization (EUA). The EUA for this test is supported by the [place] [employer] of Health and Human Service's (HHS's) declaration [...] consistent with SARS-CoV-2. Performed By: #### C [facility] #### [facility] [address] [place] [address] Dr. Tara Jackson HEMATOLOGYOrdered By: SYSTEM SYSTEM [...] AGon 07-08 INFLUANE SEE BELOW Normal [facility] Comment on above: Result Comment: Nega tive for Flu A protein angiten. Infection due to Flu A cannot be ruled out. Flu A angiten in the sample may be below the detection limit of the test. Performed By: #### I NFLUAB #### [facility] [address] [place] [address] Dr. [facility] BEL[facility] Normal [facility] Comment on above: Result Comment: Nega tive for Flu B protein antigen. Infection due to Flu B cannot be ruled out. Flu B antigen in the sample may be below the detection limit of the test. Performed By: #### I NFLUAB #### [facility] [address] [place] [address] Dr. Tara Jackson INFLUENZA A AG Negative Normal NEGATIVE SEE COMMENT [facility] Comment on above: Performed By: #### I NFLUAB #### [facility] [address] [place] [address] Dr. Tara Jackson INFLUENZA B AG Negative Normal NEGATIVE SEE COMMENT [facility] Comment on above: Performed By: #### I NFLUAB #### [facility] [address] [address] [address] Tara Jackson INTERNAL CONTROLS Within Normal Limits Normal Wi thin Normal Limits [facility] Comment on above: Performed By: #### I NFLUAB #### [facility] [address] [address] [address] Tara Jackson MICRO OTHER TESTSOrdered By: [...] PM) Normal Negative [facility] UA Auto SS [place].plasma/[place] .RBC (Bld) [Mass ratio] 0-3 /HPF Normal 0-3/HPF [facility] UA Auto SS Nitrite Ql (U) Negative (07/08/22 8:50 PM) Normal Negative [facility] UA Auto SS pH (U) 6.5 *NA* (07/08/22 8:50 PM) Invalid Interpretation Code 5.0 - 9.0 [facility] UA Auto SS Protein (U) [Mass/Vol] Negative (07/08/22 8:50 PM) Normal Negative [facility] UA Auto SS Specific gravity (U) [Rel density] 1.015 *NA* (07/08/22 8:50 PM) Invalid Interpretation Code 1.005 - 1.030 [facility] UA Auto SS UA Spec Desc Clean Catch (07/08/22 8:50 PM) Normal [facility] UA Auto SS Urobilinogen Qn (U) [id number] {Ed'U}/dL Normal 0.0 - 1.0 EU/dL [facility]A Auto SS WBC Auto Ql (U) Negative (07/08/22 8:50 PM) Normal Negative [facility] UA Auto SS WBC LM.HPF (Urine sed) [#/Area] 0-5 /HPF Normal 0-5/HPF [facility] UA Auto SS CHEMISTRYOrdered By: SYSTEM SYSTEM [...] mg/dL High 55 - 99 mg/dL [facility] POC Subsection Comment on above: Result Comment: Shanique percy Meter POC Device SN [id number] Invalid Interpretation Code [facility] POC Subsection POC User ID [id number] Invalid Interpretation Code [facility] POC Subsection POC Username CAL NOLASCO Invalid Interpretation Code [facility] POC Subsection HEMATOLOGYOrdered By: SYSTEM SYSTEM on [...] 35.7 g/dL Normal 32.0 - 36.0 gm/dL [facility] HemeAutoSS MCV (RBC) [Entitic vol] 82.4 fL Normal 78.0 - 95.0 fL [facility] HemeAutoSS Platelet mean volume (Bld) [Entitic vol] 7.1 fL Normal 6.0 - 9.5 fL [facility] HemeAutoSS Platelets (Bld) [#/Vol] 303.0 E9/L Normal 150.0 - 450.0 E9/L [facility] HemeAutoSS RBC (Bld) [#/Vol] 4.3 E12/L Normal 4.1 - 5.3 E12/L [facility] HemeAutoSS WBC corrected for nucl RBC Auto (Bld) [#/Vol] 11.5 E9/L High 4.0 - 10.5 E9/L [facility] HemeAutoSS INFLUENZA A AND B AGon 06-25 [facility] SEE BELOW Normal [facility] Comment on above: Result Comment: Nega tive for Flu A protein angiten. Infection due to Flu A cannot be ruled out. Flu A angiten in the sample may be below the detection limit of the test. Performed By: #### C VDTBH #### [facility] [address] [place] [address] Dr. Tara Jackson [facility] SEE BELOW Normal [facility] Comment on above: Result Comment: Nega tive for Flu B protein antigen. Infection due to Flu B cannot be ruled out. Flu B antigen in the sample may be below the detection limit of the test. Performed By: #### C VDTBH #### [facility] [address] [place] [address] Dr. Tara Jackson INFLUENZA A AG Negative Normal NEGATIVE SEE COMMENT [facility] Comment on above: Performed By: #### C VDTBH #### [facility] [address] [place] [address] Dr. Tara Jackson INFLUENZA B AG Negative Normal NEGATIVE SEE COMMENT [facility] Comment on above: Performed By: #### C VDTBH #### [facility] [address] [place] [address] Dr. Tara Jackson INTERNAL CONTROLS Within Normal Limits Normal Wi thin Normal Limits [facility] Comment on above: Performed By: #### C VDTBH #### [facility] [address] [place] [address] Dr. Tara Jackson Covid-19 PCR (CVDTB)on 06-03 SARS-CoV-2 (COVID-19) RNA CHRISTIAN+probe Ql (Unsp spec) Not detected Normal NOT DETECTED [facility] Comment on above: Result Comment: This test is not yet approved or cleared by the [place] FDA. When there are no FDA-approved or cleared tests available, and other criteria are met, FDA can make tests available under an emergency access mechanism called an Emergency Use Authorization (EUA). The EUA for this test is supported by the [employer] S[employer] of Health and Human Service's (HHS's) declaration [...] By: #### I NFLUAB #### [facility] [address] [place] [address] Dr. Tara Jackson Covid-19 PCR (CVDTB)on 05-04 SARS-CoV-2 (COVID-19) RNA CHRISTIAN+probe Ql (Unsp spec) Not detected Normal NOT DETECTED [facility] Comment on above: Result Comment: This test is not yet approved or cleared by the [place] FDA. When there are no FDA-approved or cleared tests available, and other criteria are met, FDA can make tests available under an emergency access mechanism called an Emergency Use Authorization (EUA). The EUA for this test is supported by the [place] of Health and Human Service's (HHS's) declaration [...] By: #### I NFLUAB #### [facility] [address] [place] [address] Dr. Tara Jackson AMYLASEon 04-26-2022 Amylase [Catalytic activity/Vol] 17 U/L Critically low 25-115 [facility] Comment on above: Performed By: #### I NFLUAB #### [facility] [address] [place] [address] Dr. Tara Jackson CBC AUTO DIFFon 04-26-2022 BASO # 0.0 103/ul Normal 0.0-0.1 [facility] Comment on above: Performed By: #### C VDTBH #### [facility] [address] [place] [address] Dr. Tara Jackson Basophils/100 WBC (Bld) 0.7 % Normal 0.2-2.0 [facility] Comment on above: Performed By: #### C VDTBH #### [facility] [address] [place] [address] Dr. Tara Jackson EO # 0.3 103/ul Normal 0.0-0.7 [facility] Comment on above: Performed By: #### C VDTBH #### [facility] [address] [place] [address] Dr. Tara Jakcson Eosinophils/100 WBC (Bld) 5.1 % Normal 0.9-7.0 [facility] Comment on above: Performed By: #### C VDTBH #### [facility] [address] [place] [address] Dr. Tara Jackson Erythrocyte distribution width (RBC) [Ratio] 13.5 % Normal 11.0-15.0 [facility] Comment on above: Performed By: #### C VDTBH #### [facility] [address] [place] [address] Dr. Tara Jackson Hematocrit (Bld) [Volume fraction] 37.9 % Normal 36.0-48.0 [facility] Comment on above: Performed By: #### C VDTBH #### [facility] [address] [place] [address] Dr. Tara Jackson Hemoglobin (Bld) [Mass/Vol] 12.4 g/dL Normal 12.0-16.0 [facility] Comment on above: Performed By: #### C VDTBH #### [facility] [address] [place] [address] Dr. Tara Jackson IG # 0.01 10e3/ul Normal 0.00-0.03 [facility] Comment on above: Performed By: #### C VDTBH #### [facility] [address] [place] [address] Dr. Tara Jackson IG % 0.2 % Normal 0.0-0.5 [facility] Comment on above: Performed By: #### C VDTBH #### [facility] [address] [place] [address] Dr. Tara Jackson LYMPH # 1.6 103/ul Normal 1.2-3.8 [facility] Comment on above: Performed By: #### C VDTBH #### [facility] [address] [place] [address] Dr. Tara Jackson Lymphocytes/100 WBC (Bld) 28.8 % Normal 20.5-60.0 [facility] Comment on above: Performed By: #### C VDTBH #### [facility] [address] [place] [address] Dr. Tara Jackson MANUAL DIFF REQ NO Normal [facility] Comment on above: Performed By: #### C VDTBH #### [facility] [address] [place] [address] Dr. Tara Jackson MCH (RBC) [Entitic mass] 28.1 pg Normal 26.7-34.0 [facility] Comment on above: Performed By: #### C VDTBH #### [facility] [address] [place] [address] Dr. Tara Jackson MCHC (RBC) [Mass/Vol] 32.7 g/dL Normal 29.9-35.2 [facility] Comment on above: Performed By: #### C VDTBH #### [facility] [address] [place] [address] Dr. Tara Jackson MCV (RBC) [Entitic vol] 85.7 fL Normal 79.1-95.6 [facility] Comment on above: Performed By: #### C VDTBH #### [facility] [address] [place] [address] Dr. Tara Jackson MONO # 0.3 103/ul Normal 0.3-0.8 [facility] Comment on above: Performed By: #### C VDTBH #### [facility] [address] [place] [address] Dr. Tara Jackson Monocytes/100 WBC (Bld) 6.2 % Normal 1.7-12.0 [facility] Comment on above: Performed By: #### C VDTBH #### [facility] [address] [place] [address] Dr. Tara Jackson NEUT # 3.2 103/ul Normal 1.4-6.5 [facility] Comment on above: Performed By: #### C VDTBH #### [facility] [address] [place] [address] Dr. Tara Jackson Neutrophils/100 WBC (Bld) 59.0 % Normal 43.0-75.0 [facility] Comment on above: Performed By: #### C VDTBH #### [facility] [address] [place] [address] Dr. Tara Jackson Platelet mean volume (Bld) [Entitic vol] 9.7 fL Normal 9.5-13.5 [facility] Comment on above: Performed By: #### C VDTBH #### [facility] [address] [place] [address] Dr. Tara Jackson PLT 382 103/ul Normal 150-450 [facility] Comment on above: Performed By: #### C VDTBH #### [facility] [address] [place] [address] Dr. Tara Jackson RBC 4.42 106/ul Normal 3.40-5.30 [facility] Comment on above: Performed By: #### C VDTBH #### [facility] [address] [place] [address] Dr. Tara Jackson WBC 5.5 103/ul Normal 4.0-11.0 [facility] Comment on above: Performed By: #### C VDTBH #### [facility] [address] [place] [address] Dr. Tara Jackson IRONon 04-26-2022 Iron [Mass/Vol] 55.0 ug/dL Normal 50.0-170.0 [facility] Comment on above: Performed By: #### C VDTBH #### [facility] [address] [place] [address] Dr. Tara Jackson LIPASEon 04-26-2022 Lipase [Catalytic activity/Vol] 191.0 U/L Normal 73.0-393.0 [facility] Comment on above: Performed By: #### I NFLUAB #### [facility] [address] [place] [address] Dr. Tara Jackson PREG QUANT HCGon 04-26-2022 HCG QUANT <1 Normal [facility] Comment on above: Performed By: #### I NFLUAB #### [facility] [address] [place] [address] Dr. Tara Jackson HCG RANGE SEE BELOW Normal [facility] Comment on above: Result Comment: 5-50 0.2-1 WEEK 50-500 1-2 WEEKS 100-5,000 2-3 WEEKS 500-10,000 3-4 WEEKS 1,000-50,000 4-5 WEEKS 10,000-100,000 5-6 WEEKS 15,000-200,000 6-8 WEEKS 10,000-100,000 2-3 MONTHS Performed By: #### I NFLUAB #### [facility] [address] [place] [address] Dr. Tara Jackson PROF 14(COMP METB)on 022 Albumin [Mass/Vol] 3.0 g/dL Critically low 3.4-5.0 [facility] Comment on above: Performed By: #### I NFLUAB #### [facility] [address] [place] [address] Dr. Tara Jackson Albumin/Globulin [Mass ratio] 0.7 {ratio} Normal [facility] Comment on above: Performed By: #### I NFLUAB #### [facility] [address] [place] [address] Dr. Tara Jackson ALP [Catalytic activity/Vol] 58 U/L Critically low 65-260 [facility] Comment on above: Performed By: #### I NFLUAB #### [facility] [address] [place] [address] Dr. Tara Jackson ALT [Catalytic activity/Vol] 19 U/L Normal 14-59 [facility] Comment on above: Performed By: #### I NFLUAB #### [facility] [address] [place] [address] Dr. Tara Jackson Anion gap [Moles/Vol] 11.1 mmol/L Normal [facility] Comment on above: Performed By: #### I NFLUAB #### [facility] [address] [place] [address] Dr. Tara Jackson AST [Catalytic activity/Vol] 13 U/L Critically low 15-37 [facility] Comment on above: Performed By: #### I NFLUAB #### [facility] [address] [place] [address] Dr. Tara Jackson Bilirubin [Mass/Vol] 0.3 mg/dL Normal 0.2-1.0 [facility] Comment on above: Performed By: #### I NFLUAB #### [facility] [address] [place] [address] Dr. Tara Jackson Calcium [Mass/Vol] 8.7 mg/dL Normal 8.5-10.1 [facility] Comment on above: Performed By: #### I NFLUAB #### [facility] [address] [place] [address] Dr. Tara Jackson Chloride [Moles/Vol] 103 mmol/L Normal 98-107 [facility] Comment on above: Performed By: #### I NFLUAB #### [facility] [address] [address] [address] Tara Jackson CO2 [Moles/Vol] 25.0 mmol/L Normal 21.0-32.0 [facility] Comment on above: Performed By: #### I NFLUAB #### [facility] [address] [place] [address] Dr. Tara Jackson Creatinine [Mass/Vol] 0.88 mg/dL Normal 0.55-1.02 [facility] Comment on above: Performed By: #### I NFLUAB #### [facility] [address] [place] [address] Dr. Tara Jackson Globulin (S) [Mass/Vol] 4.6 g/dL Normal [facility] Comment on above: Performed By: #### I NFLUAB #### [facility] [address] [place] [address] Dr. Tara Jackson Glucose [Mass/Vol] 91 mg/dL Normal 74-106 [facility] Comment on above: Performed By: #### I NFLUAB #### [facility] [address] [place] [address] Dr. Tara Jackson Potassium [Moles/Vol] 4.1 mmol/L Normal 3.5-5.1 [facility] Comment on above: Performed By: #### I NFLUAB #### [facility] [address] [place] [address] Dr. Tara Jackson Protein [Mass/Vol] 7.6 g/dL Normal 6.4-8.2 [facility] Comment on above: Performed By: #### I NFLUAB #### [facility] [address] [place] [address] Dr. Tara Jackson Sodium [Moles/Vol] 135 mmol/L Critically low 136-145 [facility] Comment on above: Performed By: #### I NFLUAB #### [facility] [address] [place] [address] Dr. Tara Jackson Urea nitrogen [Mass/Vol] 9.0 mg/dL Normal 6.4-19.3 [facility] Comment on above: Performed By: #### I NFLUAB #### [facility] [address] [address] [address] Tara Jackson Urea nitrogen/Creatinine [Mass ratio] 10.2 mg/mg Normal [facility] Comment on above: Performed By: #### I NFLUAB #### [facility] [id number] Tara Jackson CHEMISTRYOrdered By: SYSTEM SYSTEM [...] detected Normal NOT DETECTED [facility] Comment on above: Result Comment: This test is not yet approved or cleared by the [place] FDA. When there are no FDA-approved or cleared tests available, and other criteria are met, FDA can make tests available under an emergency access mechanism called an Emergency Use Authorization (EUA). The EUA for this test is supported by the [place] of Health and Human Service's (HHS's) declaration [...] By: #### I NFLUAB #### [facility] [address] [place], [place] [address] Dr. Tara Jackson Covid-19 PCR (CVDTBH)on SARS-CoV-2 (COVID-19) RNA CHRISTIAN+probe Ql (Unsp spec) Not detected Normal NOT DETECTED [facility] Comment on above: Result Comment: This test is not yet approved or cleared by the [place] FDA. When there are no FDA-approved or cleared tests available, and other criteria are met, FDA can make tests available under an emergency access mechanism called an Emergency Use Authorization (EUA). The EUA for this test is supported by the [place] of Health and Human Service's (HHS's) declaration [...] By: #### I NFLUAB #### [facility] [address] [place], [place] [address] Dr. Tara Jackson Covid-19 PCR (CVDTBH)on 01-01 SARS-CoV-2 (COVID-19) RNA CHRISTIAN+probe Ql (Unsp spec) Not detected Normal NOT DETECTED [facility] Comment on above: Result Comment: This test is not yet approved or cleared by the [place] FDA. When there are no FDA-approved or cleared tests available, and other criteria are met, FDA can make tests available under an emergency access mechanism called an Emergency Use Authorization (EUA). The EUA for this test is supported by the [place] of Health and Human Service's (HHS's) declaration [...] By: #### I NFLUAB #### [facility] [address] [place] [address] Dr. Tara Jackson SYMPTOMATIC COVID-19 ANTIGEN on 01-17-2022 EUA Statement SEE BELOW Normal [facility] Comment on above: Result Comment: This [...] By: #### C VDAGS #### [facility] [address] [place] [address] Dr. Tara Jackson SARS-CoV-2 (COVID-19) RNA CHRISTIAN+probe Ql (Unsp spec) Negative Normal NEGATIVE [facility] Comment on above: Performed By: #### C VDAGS #### [facility] [address] [address] [address] Tara Jackson CHEMISTRYOrdered By: SYSTEM SYSTEM [...] 7.7 fL Normal 6.0 - 9.5 fL [facility] HemeAutoSS Platelets (Bld) [#/Vol] 382.0 E9/L Normal 150.0 - 450.0 E9/L [facility] HemeAutoSS RBC (Bld) [#/Vol] 4.4 E12/L Normal 4.1 - 5.3 E12/L [facility] HemeAutoSS WBC corrected for nucl RBC Auto (Bld) [#/Vol] 6.5 E9/L Normal 4.0 - 10.5 E9/L [facility] HemeAutoSS MICRO OTHER TESTSOrdered By: Debby Cleveland on 12-04-2021 Rapid COV Int NEG Ctl Pass (12/04/21 11:18 PM) Normal [facility] Man Sero Rapid COV Int POS Ctl Pass (12/04/21 11:18 PM) Normal [facility] Man Sero SARS-CoV+SARS-CoV-2 (COVID-19) Ag IA.rapid Ql (Resp) Not Detected (12/04/21 11:18 PM) Normal Not Detected [facility] SEROLOGYOrdered By: Debby Cleveland on 12-04-2021 Beta hCG Ql Negative (12/04/21 6:06 PM) Normal [facility] Peds Pulmonary Medicine- Off ice [...] only phone number listed in the computer ([phone]) went straight to the mother's voicemail and it was not taking messages. Called back and requested to call another number - [phone] Today (10/24/2019) I did a telephone conference [...] update: no changes 1 Refills: yes Pharmacy: [facility] in [place] PCP: same 1 Amended By: Martina Bedolla; [...] moderate persistent; YANNA = N; Sent To: [facility]Y #[id number] Asthma, moderate persistent, Chronic cough Renew: Cetirizine HCl - 10 MG Oral Tablet; TAKE 1 TABLET BY MOUTH DAILY Rx By: Martina Bedolla; Dispense: 0 Days ; #:1 X 30 Tablet Bottle; Refill: 3; For: Asthma, moderate persistent, Chronic cough; YANNA = N; Sent To: [facility]ARMACY #6173 Non-allergic rhinitis Renew: Fluticasone Propionate 50 MCG/ACT Nasal Suspension; USE 2 SPRAYS IN EACH NOSTRIL ONCE DAILY Rx By: Martina Bedolla; Dispense: 0 Days ; #:1 X 16 GM Bottle; Refill: 6; For: Non-allergic rhinitis; YANNA = N; Sent To: [facility] #[id number] Signatures Electronically signed by : Martina Bedolla DO; Oct 26 2019 3:32PM EST (Author) Normal [facility]- Off ice Visiton 06-02-2019 [...] or you have questions about the plan ([phone]). Please call us if you are having [...] Behavior appropriate for age. Results/Data Asthma Action [id number] 01:32PMDMartina Sepulveda Test NameResultFlagReference See Scanned DocumetSee Scanned Document Summary / No summary entered : No summary entered Documents attached : Ervinpr Action Plan - Martina Bedolla; Enc: [id number] - Appointment - Martina Bedolla - (Pediatric Pulmonology) (Result Document) Spirometry loops personally reviewed. Test done today shows: rejected Orders Asthma, moderate persistent Renew: Dulera 200-5 MCG/ACT Inhalation Aerosol; Inhale 2 puffs twice daily with a spacer Rx By: Martina Bedolla; Dispense: 0 Days ; #:1 X 13 GM Inhaler; Refill: 6;For: Asthma, moderate persistent; YANNA = N; Verified Transmission to [facility]ARMACY #[id number]; Last Updated By: You [employer]; 05/30/2019 3:29:40 PM Renew: Ventolin HFA 108 (90 Base) MCG/ACT Inhalation Aerosol Solution; Inhale 2-4 puffs every 4-6 hours as needed for cough, wheezing and shortness of breath and prior to exercise Rx By: Martina Bedolla; Dispense: 0 Days ; #:1 X 18 GM Inhaler; Refill: 6;For: Asthma, moderate persistent; YANNA = N; Verified Transmission to [facility]ARM[facility]Y #6173; Last Updated By: Seen; 05/30/2019 3:29:35 PM Attending Note Attestation: Comments/Additional [...] Jun 01 2019 11:38PM EST (Author) [facility]- Off ice Visiton 02-13-2019 [...] or you have questions about the plan ([phone]). Please call us if you are having [...] history update: no changes Refills: none Pharmacy: [facility] PCP: Rakel Active Problems Allergic rhinitis [...] Plan; Status:Complete; Done: 26Jan2019 02:00PM Performed:In Office; Due:[id number]; Last Updated By:Monica Rowan; 01/26/2019 2:00:50 PM;Ordered; [...] persistent; YANNA = N; Verified Transmission to [facility]/PHARMACY #[id number]; Last Updated By: Duarte Orta; [...] SPRAYS IN EACH NOSTRIL ONCE DAILY; Therapy: [id number] to (Last Rx:02Sep2018) Requested for: 02Sep2018 Ordered Rx By: Martina Bedolla; Dispense: 0 Days ; #:1 X 16 GM Bottle; Refill: 5;For: Non-allergic rhinitis; YANNA = N; Print Rx Ibuprofen 800 MG Oral Tablet; Therapy: 26Jan2018 to Recorded Dispense: 20 Days ; #:60; Refill: 0; YANNA = N; Record; Last Updated By: Arminda Linda; 03/18/2018 2:27:47 PM 08/22 1-20 MG-MCG Oral Tablet; Therapy: [id number] to Recorded Dispense: 28 Days ; #:28; Refill: 0; YANNA = N; Record; Last Updated By: Arminda Linda; 03/18/2018 2:27:47 PM QUEtiapine Fumarate 200 MG Oral Tablet; TAKE 1 TABLET EVERY DAY AT BEDTIME; Therapy: [id number] to Recorded Rx By: PAZ; Dispense: 30 Days ; #:30; Refill: 0; YANNA = N; Record; Last Updated By: Martina Bedolla; 01/25/2018 2:11:18 PM Vitals Vital Signs Recorded: 29Oct2018 09:33AM Heart Rate78 Daztavykiuf09 Ofzspqbp712 Fopwplvrv97 Dnuuev909 cm 2-20 Stature Xhrropicjc64 % Wjgfhx70 kg 2-20 Weight Jzokapmoda60 % BMI Qohvzlydhy64.84 BMI Hbuuqdrwgq21 % BSA Calculated1.71 O2 Aspnlwyvri02 Physical Exam Constitutional: awake, alert and cooperative. [...] persistent; YANNA = N; Verified Transmission to [facility] #[id number]; Last Updated By: [employer]; 10/29/2018 1:37:58 PM Provider Impressions Asthma Severity: [...] or you have questions about the plan ([phone]). Please call us if you are having [...] date of service which is 10/29/2018. [facility] Vital Signs Date Time Vital Sign Value Performing Clinician Facility 02-09-2024 14:30-0400 Blood Pressure Location Radha Cantor [facility] 02-09-2024 14:30-0400 bodymassindex 2.26 kg/m2 Radha Cantor fotobab[employer] [facility] Comment on above: Result Comment: ^~:!ZScore Source -[facility] 02-09-2024 14:30-0400 Diastolic blood pressure 80 mm[Hg] Radha Cantor [facility] 02-09-2024 14:30-0400 Heart rate 92 /min Radha Cantor [facility] 02-09-2024 14:30-0400 Height/Length Percentile 60.56 1 Radha Cantor [employer] [facility] Comment on above: Result Comment: ^~:!Percentile Source -[facility] 02-09-2024 14:30-0400 Height/Length Z-Score 0.27 1 Radha Cantor [facility] Comment on above: Result Comment: ^~:!ZScore [facility] 02-09-2024 14:30-0400 Systolic blood pressure 110 mm[Hg] Radha Cantor [facility] [place] 02-09-2024 14:30-0400 Weight Percentile 99.39 % Radha Cantor [facility] Comment on above: Result Comment: ^~:!Percentile Source -[facility] 02-09-2024 14:30-0400 Weight Z-Score 2.51 1 Radha Cantor [facility] Comment on above: Result Comment: ^~:!ZScore [facility] 01-22-2024 09:44-0400 Blood Pressure Location Falcon Socialashley[employer]ank Simonli [facility] 01-22-2024 09:44-0400 bodymassindex 2.28 kg/m2 Grid Netfrank [employer] [facility] Comment on above: Result Comment: ^~:!ZScore [facility] 01-22-2024 09:44-0400 Diastolic blood pressure 78 mm[Hg] Edgargray Vizcainouchli [facility] 01-22-2024 09:44-0400 Heart rate 94 /min Mohamafrank Mouchli [facility] 01-22-2024 09:44-0400 Height/Length Percentile 60.60 1 Grid Netd Mouchli [facility] Comment on above: Result Comment: ^~:!Percentile Source -[facility] 01-22-2024 09:44-0400 Height/Length Z-Score 0.27 1 Falcon Socialgray Mouchli [facility] Comment on above: Result Comment: ^~:!ZScore [facility] 01-22-2024 09:44-0400 Respiratory rate 16 /min Ritud Mouchli [facility] 01-22-2024 09:44-0400 Systolic blood pressure 111 mm[Hg] Mohashleyd Mouchli [facility] 01-22-2024 09:44-0400 Weight Percentile 99.42 % Falcon Socialashleyd Mouchli [facility] Comment on above: Result Comment: ^~:!Percentile [facility] 01-22-2024 09:44-0400 Weight Z-Score 2.52 1 Falcon Social[employer] Simonli [facility] Comment on above: [facility] 21:06-0400 Body temperature 98.06 [degF] [facility] 01-13-2024 21:06-0400 Diastolic blood pressure 93 mm[Hg] [facility] 01-13-2024 21:06-0400 Heart rate 71 /min [facility] 01-13-2024 21:06-0400 Mean blood pressure 105 mm[Hg] [facility] 01-13-2024 21:06-0400 Respiratory rate 18 /min [facility] 01-13-2024 21:06-0400 SaO2% (BldA) [Mass fraction] 96 % [facility] 01-13-2024 21:06-0400 Systolic blood pressure 130 mm[Hg] [facility] 01-13-2024 20:40-0400 Diastolic blood pressure 90 mm[Hg] [facility] 01-13-2024 20:40-0400 Heart rate 74 /min [facility] 01-13-2024 20:40-0400 Mean blood pressure 112 mm[Hg] [facility] 01-13-2024 20:40-0400 Systolic blood pressure 156 mm[Hg] [facility] 01-13-2024 19:43-0400 Diastolic blood pressure 84 mm[Hg] [facility] 01-13-2024 19:43-0400 Heart rate 76 /min [facility] 01-13-2024 19:43-0400 Mean blood pressure 100 mm[Hg] [facility] 01-13-2024 19:43-0400 Respiratory rate 18 /min [facility] 01-13-2024 19:43-0400 SaO2% (BldA) [Mass fraction] 97 % [facility] 01-13-2024 19:43-0400 Systolic blood pressure 131 mm[Hg] [facility] 01-13-2024 19:01-0400 Respiratory rate 16 /min [facility] 01-13-2024 19:01-0400 SaO2% (BldA) [Mass fraction] 97 % [facility] 01-13-2024 18:29-0400 Body temperature 98.42 [degF] [facility] 01-13-2024 18:29-0400 bodymassindex 2.3 kg/m2 [facility] Comment on above: Result Comment: ^~:!ZScore Source -[facility] 01-13-2024 18:29-0400 Heart rate 75 /min [facility] 01-13-2024 18:29-0400 Height/Length Percentile 61.20 1 [facility] Comment on above: Result Comment: ^~:!Percentile Source -[facility] 01-13-2024 18:29-0400 Height/Length Z-Score 0.28 1 [facility] Comment on above: Result Comment: ^~:!ZScore [facility] 01-13-2024 18:29-0400 Weight Percentile 99.46 % [facility] Comment on above: Result Comment: ^~:!Percentile Cele [facility] 01-13-2024 18:29-0400 Weight Z-Score 2.55 1 [facility] Comment on above: Result Comment: ^~:!ZScore [facility] 01-12-2024 17:20-0400 Diastolic blood pressure 91 mm[Hg] Radha Chaparroe [facility] 01-12-2024 17:20-0400 Heart rate 74 /min Radha Chaparroe [facility] 01-12-2024 17:20-0400 Mean blood pressure 108 mm[Hg] Radha Sole [facility] 01-12-2024 17:20-0400 Respiratory rate 16 /min Radha Sole [facility] 01-12-2024 17:20-0400 SaO2% (BldA) [Mass fraction] 100 % Radha Sole [facility] 01-12-2024 17:20-0400 Systolic blood pressure 143 mm[Hg] Radha Sole [facility] 01-12-2024 16:59-0400 Blood Pressure Location Radha Sole [facility] 01-12-2024 16:59-0400 Diastolic blood pressure 91 mm[Hg] Radha Sole [facility] 01-12-2024 16:59-0400 Heart rate 82 /min Radha Sole [facility] 01-12-2024 16:59-0400 Mean blood pressure 108 mm[Hg] Radha Sole [facility] 01-12-2024 16:59-0400 Respiratory rate 16 /min Radha Whipple [facility] 01-12-2024 16:59-0400 SaO2% (BldA) [Mass fraction] 100 % Radha Chaparroe [facility] 01-12-2024 16:59-0400 Systolic blood pressure 143 mm[Hg] Radha Chaparroe [facility] 01-12-2024 14:56-0400 Body temperature 98.6 [degF] Radha Chaparroe [facility] 01-12-2024 14:56-0400 bodymassindex 2.3 kg/m2 Radha Chaparroe [facility] Comment on above: Result Comment: ^~:!ZScore [facility] 01-12-2024 14:56-0400 Diastolic blood pressure 86 mm[Hg] Radha Whipple [facility] 01-12-2024 14:56-0400 Heart rate 93 /min Radha Whipple [facility] 01-12-2024 14:56-0400 Height/Length Percentile 61.20 1 Radha Whipple [facility] Comment on above: Result Comment: ^~:!Percentile Source -[facility] 01-12-2024 14:56-0400 Height/Length Z-Score 0.28 1 Radha Whipple [facility] Comment on above: Result Comment: ^~:!ZScore [facility] 01-12-2024 14:56-0400 Respiratory rate 18 /min Radha Whipple [facility] 01-12-2024 14:56-0400 SaO2% (BldA) [Mass fraction] 99 % Radha Whipple [facility] 01-12-2024 14:56-0400 Systolic blood pressure 135 mm[Hg] Radha Whipple [facility] 01-12-2024 14:56-0400 Weight Percentile 99.46 % Radha Whipple [facility] Comment on above: Result Comment: ^~:!Percentile Source -[facility] 01-12-2024 14:56-0400 Weight Z-Score 2.55 1 Radha Whipple [facility] Comment on above: Result Comment: ^~:!ZScore Source [facility] 06-30-2023 13:40-0500 Body height 165.1 cm Valorie Hansen MD Work Phone: [facility] 06-30-2023 13:40-0500 Body mass index (BMI) [Percentile] Per age and sex 99.59 % Valorie aHnsen MD Work Phone: [facility] 06-30-2023 13:40-0500 Body mass index (BMI) [Ratio] 43.4 kg/m2 Valorie Hansen MD Work Phone: [facility] 06-30-2023 13:40-0500 Body weight 118.3 kg Valorie Hansen MD Work Phone: [facility] 06-30-2023 13:40-0500 Respiratory rate 16 /min Valorie Hansen MD Work Phone: [facility] 05-13-2023 13:00-0400 Hourly Rounding Hasan [facility] 05-13-2023 13:00-0400 Promise to Return Hasan [facility] 05-13-2023 12:00-0400 Body temperature 98.24 [degF] Hasan [facility] 05-13-2023 12:00-0400 Diastolic blood pressure 84 mm[Hg] Hasan [facility] 05-13-2023 12:00-0400 Heart rate 76 /min Hasan [facility] 05-13-2023 12:00-0400 Hourly Rounding Hasan [facility] 05-13-2023 12:00-0400 Mean blood pressure 93 mm[Hg] Hasan [facility] 05-13-2023 12:00-0400 Promise to Return Hasan [facility] 05-13-2023 12:00-0400 Respiratory rate 14 /min Hasan [facility] 05-13-2023 12:00-0400 SaO2% (BldA) [Mass fraction] 96 % Hasan [facility] 05-13-2023 12:00-0400 Systolic blood pressure 112 mm[Hg] Hasan [facility] 05-13-2023 11:00-0400 Diastolic blood pressure 71 mm[Hg] Hasan [facility] 05-13-2023 11:00-0400 Heart rate 90 /min Hasan [facility]IR [facility] 05-13-2023 11:00-0400 Hourly Rounding Hasan [facility] 05-13-2023 11:00-0400 Mean blood pressure 84 mm[Hg] Hasan [facility] 05-13-2023 11:00-0400 Promise to Return Hasan [facility] 05-13-2023 11:00-0400 Respiratory rate 13 /min Hasan [facility] 05-13-2023 11:00-0400 SaO2% (BldA) [Mass fraction] 97 % Hasan [facility] 05-13-2023 11:00-0400 Systolic blood pressure 111 mm[Hg] Hasan [facility] 05-13-2023 10:00-0400 Diastolic blood pressure 86 mm[Hg] Hasan [facility] 05-13-2023 10:00-0400 Heart rate 75 /min Hasan [facility] 05-13-2023 10:00-0400 Mean blood pressure 97 mm[Hg] Hasan [facility] 05-13-2023 10:00-0400 Systolic blood pressure 119 mm[Hg] Hasan [facility] 05-13-2023 08:00-0400 Body temperature 98.78 [degF] Hasan [facility] 05-13-2023 06:00-0400 Blood Pressure Location Hasan [facility] 05-13-2023 05:27-0400 weight 2.47 1 Hasan [facility] Comment on above: Result Comment: ^~:!ZScore Source -[facility] 05-13-2023 05:27-0400 Weight Percentile 99.33 % Hasan [facility] Comment on above: Result Comment: ^~:!Percentile Source -[facility] 05-13-2023 04:00-0400 Body temperature 97.88 [degF] Hasan [facility] 05-12-2023 09:00-0400 weight 2.48 1 Hasan [facility] Comment on above: Result Comment: ^~:!SURYcore Source [facility] 05-12-2023 09:00-0400 Weight Percentile 99.34 % Hasan [facility] Comment on above: Result Comment: ^~:!Percentile Source -[facility] [place] 05-12-2023 06:18-0400 weight 2.46 1 Hasan [facility] Comment on above: Result Comment: ^~:!ZScore Source [facility] ^~:!ZScore [facility] 05-12-2023 06:18-0400 Weight Percentile 99.30 % Hasan [facility] Comment on above: Result Comment: ^~:!Percentile Source -[facility] [place] ^~:!Percentile [facility] 05-11-2023 20:00-0400 Body temperature 97.88 [degF] Hasan [facility] 05-11-2023 08:01-0400 bodymassindex 2.34 kg/m2 Hasan [facility] Comment on above: [facility]: [facility] 08:01-0400 Height/Length Percentile 61.66 1 Hasan [facility]IR [facility] Comment on above: Result Comment: ^~:!Percentile Source [facility] 05-11-2023 08:01-0400 Height/Length Z-Score 0.30 1 Hasan [facility] Comment on above: Result Comment: [facility] 05-11-2023 07:58-0400 bodymassindex 2.34 kg/m2 Hasan [facility]IR [facility] Comment on above: Result Comment: [facility] 05-11-2023 07:58-0400 Height/Length Percentile 61.66 1 Hasan [facility] Comment on above: Result Comment: ^~:![facility] 05-11-2023 07:58-0400 Height/Length Z-Score 0.30 1 Hasan [facility] Comment on above: Result Comment: [facility] 03-16-2023 17:47-0400 Diastolic blood pressure 80 mm[Hg] Radha Whipple [facility] 03-16-2023 17:47-0400 Heart rate 84 /min Radha Whipple [facility] 03-16-2023 17:47-0400 Respiratory rate 17 /min Radha Whipple [facility] 03-16-2023 17:47-0400 SaO2% (BldA) [Mass fraction] 99 % Radha Whipple [facility] 03-16-2023 17:47-0400 Systolic blood pressure 133 mm[Hg] Radha Whipple [facility] 03-16-2023 16:52-0400 Body temperature 98.42 [degF] Radha Whipple [facility] 03-16-2023 16:52-0400 bodymassindex 2.36 Radha Whipple [facility] Comment on above: Result Comment: [facility] 03-16-[facility]23 16:52-0400 Diastolic blood pressure 92 mm[Hg] Radha Whipple [facility] 03-16-2023 16:52-0400 Heart rate 104 /min Radha Whipple [facility] 03-16-2023 16:52-0400 Height/Length Percentile 61.80 Radha Whipple [facility] Comment on above: Result Comment: ^~:!Percentile Source -[facility] [place] 03-16-2023 16:52-0400 Height/Length Z-Score 0.30 Radha Whipple [facility] Comment on above: Result Comment: ^~:!ZScore [facility] 03-16-2023 16:52-0400 Respiratory rate 17 /min Radha Whipple [facility] 03-16-2023 16:52-0400 SaO2% (BldA) [Mass fraction] 98 % Radha Whipple [facility] 03-16-2023 16:52-0400 Systolic blood pressure 118 mm[Hg] Radha Whipple [facility] 03-16-2023 16:52-0400 weight 2.52 Radha Whipple [facility] Comment on above: Result Comment: ^~:!ZScore [facility] 03-16-2023 16:52-0400 Weight Percentile 99.41 % Radha Whipple [facility] Comment on above: Result Comment: ^~:!Percentile Source [facility] 03-13-2023 07:30-0400 Body temperature 98.1 [degF] MD Claudia Ellington Work Phone: [facility] 03-13-2023 07:30-0400 Diastolic blood pressure 65 mm[Hg] MD Claudia Ellington Work Phone: [facility] 03-13-2023 07:30-0400 Heart rate 60 /min MD Claudia Ellington Work Phone: [facility] 03-13-2023 07:30-0400 Respiratory rate 16 /min MD Claudia Ellington Work Phone: [facility] 03-13-2023 07:30-0400 SaO2% (BldA) [Mass fraction] 95 % MD Claudia Ellington Work Phone: [facility] 03-13-2023 07:30-0400 Systolic blood pressure 97 mm[Hg] MD Claudia Ellington Work Phone: [facility] 03-11-2023 15:15-0400 Body height 165.1 cm MD Claudia Ellington Work Phone: [facility] 03-10-2023 15:55-0400 Body weight 113.39 kg MD Claudia Ellington Work Phone: [facility] 03-10-2023 13:00-0400 Hourly Rounding [facility] 03-10-2023 13:00-0400 Promise to Return [facility] 03-10-2023 12:28-0400 Hourly Rounding [facility] 03-10-2023 12:28-0400 Promise to Return [facility] 03-10-2023 11:00-0400 Blood Pressure Location [facility] 03-10-2023 11:00-0400 Body temperature 98.06 [degF] [facility] 03-10-2023 11:00-0400 Diastolic blood pressure 73 mm[Hg] [facility] 03-10-2023 11:00-0400 Heart rate 91 /min [facility] 03-10-2023 11:00-0400 Hourly Rounding [facility] 03-10-2023 11:00-0400 Mean blood pressure 85 mm[Hg] [facility] 03-10-2023 11:00-0400 Promise to Return [facility] 03-10-2023 11:00-0400 Respiratory rate 16 /min [facility] 03-10-2023 11:00-0400 SaO2% (BldA) [Mass fraction] 97 % [facility] 03-10-2023 11:00-0400 Systolic blood pressure 109 mm[Hg] [facility] 03-10-2023 07:00-0400 Body temperature 97.88 [degF] [facility] 03-10-2023 07:00-0400 Diastolic blood pressure 72 mm[Hg] [facility] 03-10-2023 07:00-0400 Heart rate 87 /min [facility] 03-10-2023 07:00-0400 Mean blood pressure 86 mm[Hg] [facility] 03-10-2023 07:00-0400 Respiratory rate 18 /min [facility] 03-10-2023 07:00-0400 SaO2% (BldA) [Mass fraction] 96 % [facility] 03-10-2023 07:00-0400 Systolic blood pressure 115 mm[Hg] [facility] 03-10-2023 05:04-0400 weight 2.52 [facility] Comment on above: Result Comment: ^~:!ZScore Source -[facility] 03-10-2023 05:04-0400 Weight Percentile 99.41 % [facility] Comment on above: Result Comment: ^~:!Percentile Source -[facility] 03-10-2023 00:14-0400 Blood Pressure Location [facility] 03-10-2023 00:14-0400 Body temperature 98.06 [degF] [facility] 03-10-2023 00:14-0400 Diastolic blood pressure 74 mm[Hg] [facility] 03-10-2023 00:14-0400 Heart rate 79 /min [facility] 03-10-2023 00:14-0400 Mean blood pressure 89 mm[Hg] [facility] 03-10-2023 00:14-0400 Respiratory rate 16 /min [facility] P[facility] 03-10-2023 00:14-0400 Systolic blood pressure 118 mm[Hg] [facility] 03-09-2023 19:28-0400 SaO2% (BldA) [Mass fraction] 95 % [facility] 03-09-2023 19:28-0400 Mean blood pressure 91 mm[Hg] [facility] 03-09-2023 19:27-0400 Body temperature 98.06 [degF] [facility] 03-09-2023 12:39-0400 weight 2.44 [facility] Comment on above: Result Comment: ^~:!ZScore [facility] 03-09-2023 12:39-0400 Weight Percentile 99.26 % [facility] Comment on above: Result Comment: ^~:!Percentile Source -[facility] [place] 03-08-2023 10:57-0400 Body temperature 97.88 [degF] [facility] 03-08-2023 10:56-0400 Mean blood pressure 89 mm[Hg] [facility] 03-08-2023 07:28-0400 Mean blood pressure 97 mm[Hg] [facility] 03-08-2023 07:28-0400 Heart rate 81 /min [facility] 03-08-2023 07:28-0400 Respiratory rate 21 /min [facility] 03-08-2023 06:49-0400 weight 2.80 [facility] Comment on above: Result Comment: [facility]-08-[facility] 06:49-0400 Weight Percentile 99.74 % [facility] Comment on above: Result Comment: ^~:!Percentile Source -[facility] 03-07-2023 23:48-0400 Respiratory rate 18 /min [facility] 03-07-2023 20:57-0400 Respiratory rate 18 /min [facility] 03-07-2023 20:02-0400 bodymassindex 2.58 [facility] Comment on above: Result Comment: ^~:!ZScore [facility] 03-07-2023 20:02-0400 Height/Length Percentile 61.80 [facility] Comment on above: Result Comment: ^~:!Percentile Source -[facility] [place] 03-07-2023 20:02-0400 Height/Length Z-Score 0.30 [facility] Comment on above: Result Comment: ^~:!ZScore [facility] 03-07-2023 18:52-0400 bodymassindex 2.58 [facility] Comment on above: Result Comment: ^~:!SURYcore [facility] 03-07-2023 18:52-0400 Heart rate 91 /min [facility] 03-07-2023 18:52-0400 Height/Length Percentile 61.80 [facility] Comment on above: Result Comment: ^~:!Percentile Source [facility] 03-07-2023 18:52-0400 Height/Length Z-Score 0.30 [facility] Comment on above: Result Comment: ^~:!Debbie [facility] 03-07-2023 14:11-0400 bodymassindex 2.33 [facility] [facility] Comment on above: Result Comment: ^~:![facility] 03-07-2023 14:11-0400 Heart rate 105 /min [facility] 03-07-2023 14:11-0400 Height/Length Percentile 61.21 [facility] Comment on above: Result Comment: ^~:!Percentile Source [facility] 03-07-2023 14:11-0400 Height/Length Z-Score 0.28 [facility] Comment on above: [facility]: [facility] 13[facility]56-0400 Body temperature 98.06 [degF] Wilfredokeysha Villareal [facility] 11-13-2022 13:56-0400 bodymassindex 2.31 Wilfredokeysha Villareal [facility] Comment on above: Result Comment: ^~:![facility] 11-13-2022 13:56-0400 Diastolic blood pressure 85 mm[Hg] Wilfredokeysha Villareal [facility] 11-13-2022 13:56-0400 Heart rate 94 /min Wilrfedokeysha Villareal [facility] 11-13-2022 13:56-0400 Height/Length Percentile 61.53 Wilfredo [facility] Comment on above: Result Comment: ^~:![facility] Cele [facility] 11-13-2022 13:56-0400 Height/Length Z-Score 0.29 Wilfredokeysha Villareal [facility] Comment on above: Result Comment: ^~:![facility] 11-13-2022 13:56-0400 Respiratory rate 16 /min Wilfredokeysha Villareal [facility] 11-13-2022 13:56-0400 SaO2% (BldA) [Mass fraction] 97 % Wilfredo [facility] 11-13-2022 13:56-0400 Systolic blood pressure 135 mm[Hg] Wilfredo [facility] 11-13-2022 13:56-0400 weight 2.42 Wilfredo Villareal [facility] Comment on above: Result Comment: ^~:![facility] 11-13-2022 13:56-0400 Weight Percentile 99.23 % Wilfredo Villareal [facility] Comment on above: Result Comment: ^~:!Percentile Source -[facility] 10-11-2022 01:10-0500 Diastolic blood pressure 74 mm[Hg] Kaylinn Dokken [facility] 10-11-2022 01:10-0500 Heart rate 85 /min Kaylinn Dokken [facility] 10-11-2022 01:10-0500 Respiratory rate 12 /min Kaylinn Dokken [facility] 10-11-2022 01:10-0500 SaO2% (BldA) [Mass fraction] 98 % Kaylinn Dokken [facility] 10-11-2022 01:10-0500 Systolic blood pressure 118 mm[Hg] Kaylinn Dokken [facility] 10-11-2022 00:04-0500 Diastolic blood pressure 74 mm[Hg] Kaylinn Dokken [facility] 10-11-2022 00:04-0500 Heart rate 74 /min Kaylinn Dokken [facility] 10-11-2022 00:04-0500 Respiratory rate 12 /min Kaylinn Dokken [facility] 10-11-2022 00:04-0500 SaO2% (BldA) [Mass fraction] 97 % Kaylinn Dokken [facility] 10-11-2022 00:04-0500 Systolic blood pressure 101 mm[Hg] Kaylinn Dokken [facility] 10-10-2022 23:00-0500 Diastolic blood pressure 85 mm[Hg] Kaylinn Dokken [facility] 10-10-2022 23:00-0500 Heart rate 87 /min Alexinn Dok[facility] 10-10-2022 23:00-0500 Mean blood pressure 92 mm[Hg] Rockyylinn Dokken [facility] 10-10-2022 23:00-0500 Respiratory rate 20 /min Aelxinn Dokken [facility] 10-10-2022 23:00-0500 Systolic blood pressure 105 mm[Hg] Alexinn Dokken [facility] 10-10-2022 21:54-0500 Body temperature 98.42 [degF] Alexinn Dokken [facility] 10-10-2022 21:54-0500 bodymassindex 2.32 Ginan Dokken [facility] Comment on above: Result Comment: [facility] 21:54-0500 Height/Length Percentile 62.20 Ginan Dokken [facility] Comment on above: Result Comment: ^~:!Percentile [facility] 10-10-2022 21:54-0500 Height/Length Z-Score 0.31 Ginan Dokken [facility] Comment on above: Result Comment: ^[facility] 10-10-2022 21:54-0500 Respiratory rate 15 /min Alexinn Dokken [facility] 10-10-2022 21:54-0500 weight 2.43 Rockyylinn Dokken [facility] Comment on above: Result Comment: ^~:![facility] 10-10-2022 21:54-0500 Weight Percentile 99.24 % Ko Draper [facility] Comment on above: Result Comment: ^~:!Percentile Source [facility] 10-06-2022 14:00-0500 Diastolic blood pressure 69 mm[Hg] Han Miky [facility] 10-06-2022 14:00-0500 Heart rate 79 /min Han Miky [facility] 10-06-2022 14:00-0500 Mean blood pressure 87 mm[Hg] Han Miky [facility] 10-06-2022 14:00-0500 Respiratory rate 18 /min Han Miky [facility] 10-06-2022 14:00-0500 SaO2% (BldA) [Mass fraction] 95 % Han Miky [facility] 10-06-2022 14:00-0500 Systolic blood pressure 122 mm[Hg] Han Miky [facility] 10-06-2022 00:30-0500 Diastolic blood pressure 60 mm[Hg] Han Miky [facility] 10-06-2022 00:30-0500 Heart rate 88 /min Han Miky [facility] 10-06-2022 00:30-0500 Respiratory rate 18 /min Han Miky [facility] 10-06-2022 00:30-0500 SaO2% (BldA) [Mass fraction] 96 % Han Miky [facility] 10-06-2022 00:30-0500 Systolic blood pressure 102 mm[Hg] Han Miky [facility] 10-05-2022 23:51-0500 Body temperature 97.7 [degF] Han Miky [facility] 10-05-2022 23:51-0500 bodymassindex 2.34 Han Miky [facility] Comment on above: Result Comment: ^~:![facility] 10-05-2022 23:51-0500 Diastolic blood pressure 78 mm[Hg] Han Miky [facility] 10-05-2022 23:51-0500 Heart rate 89 /min Han Miky [facility] 10-05-2022 23:51-0500 Height/Length Percentile 61.61 Han Miky [facility] Comment on above: Result Comment: ^~:![facility] 10-05-2022 23:51-0500 Height/Length Z-Score 0.30 Han Miky [facility] Comment on above: Result Comment: ^[facility] 10-05-[facility] 23:51-0500 Respiratory rate 18 /min Han Miky [facility] 10-05-2022 23:51-0500 SaO2% (BldA) [Mass fraction] 95 % Han Miky [facility] 10-05-2022 23:51-0500 Systolic blood pressure 171 mm[Hg] Han Miky [facility] 10-05-2022 23:51-0500 weight 2.45 Han Miky [facility] Comment on above: Result Comment: ^[facility] 10-05-[facility]22 23:51-0500 Weight Percentile 99.29 % Han Miky [facility] Comment on above: Result Comment: ^~:!Percentile Source -[facility] [place] 07-08-2022 22:00-0500 Body temperature 98.78 [degF] Kaylinn Dokken [facility] 07-08-2022 22:00-0500 Diastolic blood pressure 74 mm[Hg] Kaylinn Dokken [facility] 07-08-2022 22:00-0500 Heart rate 77 /min Kaylinn Dokken [facility] 07-08-2022 22:00-0500 Mean blood pressure 86 mm[Hg] Kaylinn Dokken [facility] 07-08-2022 22:00-0500 Respiratory rate 12 /min Kaylinn Dokken [facility] 07-08-2022 22:00-0500 SaO2% (BldA) [Mass fraction] 97 % Kaylinn Dokken [facility] 07-08-2022 22:00-0500 Systolic blood pressure 110 mm[Hg] Kaylinn Dokken [facility] 07-08-2022 21:44-0500 Body temperature 99.32 [degF] Kaylinn Dokken [facility] 07-08-2022 21:44-0500 Diastolic blood pressure 73 mm[Hg] Kaylinn Dokken [facility] 07-08-2022 21:44-0500 Heart rate 90 /min Kaylinn Dokken [facility] 07-08-2022 21:44-0500 Mean blood pressure 88 mm[Hg] Kaylinn Dokken [facility] 07-08-2022 21:44-0500 Respiratory rate 16 /min Kaylinn Dokken [facility] 07-08-2022 21:44-0500 SaO2% (BldA) [Mass fraction] 96 % Kaylinn Dokken [facility] 07-08-2022 21:44-0500 Systolic blood pressure 119 mm[Hg] Kaylinn Dokken [facility] 07-08-2022 21:00-0500 Diastolic blood pressure 67 mm[Hg] Kaylinn Dokken [facility] 07-08-2022 21:00-0500 Heart rate 80 /min Kaylinn Dokken [facility] 07-08-2022 21:00-0500 Mean blood pressure 83 mm[Hg] Kaylinn Dokken [facility] 07-08-2022 21:00-0500 SaO2% (BldA) [Mass fraction] 98 % Kaylinn Dokken [facility] 07-08-2022 21:00-0500 Systolic blood pressure 116 mm[Hg] Kaylinn Dokken [facility] 07-08-2022 18:52-0500 Body temperature 100.04 [degF] Kaylinn Dokken [facility] 07-08-2022 18:52-0500 bodymassindex 2.38 Kaylinn Dokken [facility] Comment on above: Result Comment: ^[facility] 07-08-2022 18:52-0500 Heart rate 86 /min Kaylinn Dokken [facility] 07-08-2022 18:52-0500 Height/Length Percentile 61.90 % Ko Draper [facility] Comment on above: Result Comment: ^~:!Percentile [facility] 07-08-2022 18:52-0500 Height/Length Z-Score 0.30 Ko Draper [facility] Comment on above: Result Comment: ^~:![facility] 07-08-2022 18:52-0500 Respiratory rate 18 /min Ko Draper [facility] 07-08-2022 18:52-0500 weight 2.47 Ko Draper [facility] Comment on above: Result Comment: ^~:![facility] 07-08-2022 18:52-0500 Weight Percentile 99.33 % Ko Draper [facility] Comment on above: Result Comment: ^~:!Percentile [facility] 07-04-2022 18:09-0500 Body temperature 98.06 [degF] Radha Whipple [facility] 07-04-2022 18:09-0500 bodymassindex 2.21 Radha Whipple [facility] Comment on above: Result Comment: ^~:![facility] 07-04-2022 18:09-0500 Diastolic blood pressure 83 mm[Hg] Radha Chaparroe [facility] 07-04-2022 18:09-0500 Heart rate 99 /min Radha Whipple [facility] 07-04-2022 18:09-0500 Height/Length Percentile 61.90 % Radha Whipple [facility] Comment on above: Result Comment: ^~:!Percentile Source [facility] 07-04-2022 18:09-0500 Height/Length Z-Score 0.30 Radha Whipple [facility] Comment on above: Result Comment: ^[facility] 18:09-0500 Respiratory rate 18 /min Radha Whipple [facility] 07-04-2022 18:09-0500 SaO2% (BldA) [Mass fraction] 97 % Radha Whipple [facility] 07-04-2022 18:09-0500 Systolic blood pressure 121 mm[Hg] Radha Whippel [facility] 07-04-2022 18:09-0500 weight 2.29 Radha Whipple [facility] Comment on above: Result Comment: ^~:![facility] 07-04-2022 18:09-0500 Weight Percentile 98.88 % Radha Whipple [facility] Comment on above: Result Comment: ^~:!Percentile Source [facility] 07-02-2022 16:02-0500 Diastolic blood pressure 64 mm[Hg] Wilfredo Mono [facility] 07-02-2022 16:02-0500 Heart rate 95 /min Wilfredokeysha Villareal [facility] 07-02-2022 16:02-0500 Respiratory rate 18 /min Iwlfredo Mono [facility] 07-02-2022 16:02-0500 SaO2% (BldA) [Mass fraction] 95 % Wilfredo Villareal [facility] 07-02-2022 16:02-0500 Systolic blood pressure 108 mm[Hg] Wilfredo Villareal [facility] 07-02-2022 14:24-0500 Diastolic blood pressure 78 mm[Hg] Wilfredo Villareal [facility] 07-02-2022 14:24-0500 Heart rate 95 /min Wilfredo Villareal [facility] 07-02-2022 14:24-0500 Respiratory rate 18 /min Wilfredo Villareal [facility] 07-02-2022 14:24-0500 SaO2% (BldA) [Mass fraction] 96 % Wilfredo Villareal [facility] 07-02-2022 14:24-0500 Systolic blood pressure 137 mm[Hg] Wilfredo Villareal [facility] 07-02-2022 13:28-0500 Body temperature 98.06 [degF] Wilfredo Villareal [facility] 07-02-2022 13:28-0500 bodymassindex 2.21 Wilfredo Villareal [facility] Comment on above: Result Comment: [facility] 13:28-0500 Diastolic blood pressure 74 mm[Hg] Wilfredo Villareal [facility] 07-02-2022 13:28-0500 Heart rate 108 /min Wilfredo Villareal [facility] 07-02-2022 13:28-0500 Height/Length Percentile 61.90 % Wilfredo Villareal [facility] Comment on above: Result Comment: ^~:!Percentile Source [facility] 07-02-2022 13:28-0500 Height/Length Z-Score 0.30 Wilfredo Villareal [facility] Comment on above: Result Comment: ^~:![facility] 07-02-2022 13:28-0500 Respiratory rate 18 /min Wilfredo Villareal [facility] 07-02-2022 13:28-0500 SaO2% (BldA) [Mass fraction] 98 % Wilfredo Villareal [facility] 07-02-2022 13:28-0500 Systolic blood pressure 130 mm[Hg] Wilfredo Villareal [facility] 07-02-2022 13:28-0500 weight 2.29 Wilfredo Villareal [facility] Comment on above: Result Comment: ^~:![facility] 07-02-2022 13:28-0500 Weight Percentile 98.88 % Wilfredo Villareal [facility] Comment on above: Result Comment: ^~:!Percentile Source [facility] 12-05-2021 22:39-0400 Blood Pressure Location Wilfredo Villareal [facility] 12-05-2021 22:39-0400 Body temperature 98.42 [degF] Wilfredo Vill[facility] 12-05-2021 22:39-0400 Diastolic blood pressure 98 mm[Hg] Wilfredo Villareal [facility] 12-05-2021 22:39-0400 Heart rate 114 /min Wilfredo Villareal [facility] 12-05-2021 22:39-0400 Mean blood pressure 110 mm[Hg] Wilfredo Villare[facility] 12-05-2021 22:39-0400 Respiratory rate 16 /min Wilfredo Villareal [facility] 12-05-2021 22:39-0400 SaO2% (BldA) [Mass fraction] 95 % Wilfredo Villareal [facility] 12-05-2021 22:39-0400 Systolic blood pressure 133 mm[Hg] Wilfredo Villare[facility] 12-05-2021 19:45-0400 Blood Pressure Location Wilfredo Villareal [facility] 12-05-2021 19:45-0400 Body temperature 99.68 [degF] Wilfredo Villareal [facility] 12-05-2021 19:45-0400 Diastolic blood pressure 91 mm[Hg] Wilfredo Mono [facility] 12-05-2021 19:45-0400 Heart rate 107 /min Wilfredo Mono [facility] 12-05-2021 19:45-0400 Mean blood pressure 101 mm[Hg] Wilfredo Villareal [facility] 12-05-2021 19:45-0400 Respiratory rate 16 /min Wilfredo Villareal [facility] 12-05-2021 19:45-0400 SaO2% (BldA) [Mass fraction] 99 % Wilfredo Villareal [facility] 12-05-2021 19:45-0400 Systolic blood pressure 122 mm[Hg] Wilfredo Villareal [facility] 12-05-2021 18:51-0400 Blood Pressure Location Wilfredo Villareal [facility] 12-05-2021 18:51-0400 Diastolic blood pressure 64 mm[Hg] Wilfredo Mono [facility] 12-05-2021 18:51-0400 Heart rate 74 /min Wilfredo Mono [facility] 12-05-2021 18:51-0400 Mean blood pressure 88 mm[Hg] Wilfredo Mono [facility] 12-05-2021 18:51-0400 Respiratory rate 16 /min Wilfredo Mono [facility] 12-05-2021 18:51-0400 SaO2% (BldA) [Mass fraction] 99 % Wilfredo Mono [facility] 12-05-2021 18:51-0400 Systolic blood pressure 137 mm[Hg] Wilfredo Villareal [facility] 12-05-2021 07:00-0400 Body temperature 98.6 [degF] Wilfredo Mono [facility] Encounters Encounter Date Encounter Type Care Provider Facility Start: 03-03-2024 End: 03-03-2024 ambulatory Zenon Hernandez Facility:[facility] Start: 03-03-2024 End: 03-03-2024 Patient encounter procedure Zenon Hernandez [facility] Start: 03-02-2024 ambulatory Claudia Ellington Facility: [facility] Start: 03-01-2024 End: 03-01-2024 ambulatory PEYTON QUIROZ Not Available Start: 02-16-2024 End: 02-16-2024 ambulatory Radha Cantor Facility:[facility] Start: 02-16-2024 End: 02-16-2024 Patient encounter procedure Radha Cantor [facility] Start: 02-09-2024 End: 02-09-2024 ambulatory Zenon Hernandez Facility:[facility] Start: 02-09-2024 End: 02-09-2024 Patient encounter procedure Radha Cantor [facility] Start: 01-28-2024 ambulatory [place] Start: 01-25-2024 ambulatory Migue Farrell Facility :[facility] Start: 01-22-2024 End: 01-22-2024 ambulatory Zenon Hernandez Facility:[facility] Start: 01-22-2024 End: 01-22-2024 Patient encounter procedure Zenon Hernandez [facility] Start: 01-14-2024 [facility]ulatory [facility] Start: 01-13-2024 End: 01-13-2024 Emergency department patient visit Migue Farrell [facility] Start: 01-12-2024 End: 01-12-2024 Emergency department patient visit Radha Whipple Facility:[facility] Start: 06-30-2023 ambulatory VALORIE HANSEN [facility] Start: 06-30-2023 End: 06-30-2023 Office outpatient new 30 minutes Valorie Hansen MD Work Phone: [facility] Comment on above: Macromastia (Primary Dx); Thoracic spine pain Start: 05-11-2023 End: 05-13-2023 Evaluation and management of inpatient Akosua LR [facility] Start: 04-27-2023 Evaluation and management of inpatient Noel Stratton Facility:[facility] Start: 03-16-2023 End: 03-16-2023 Emergency department patient visit Radha Whipple [facility] Start: 03-10-2023 End: 03-13-2023 Evaluation and management of inpatient MD Claudia Ellington Work Phone: [address] Work Phone: Start: 03-10-2023 End: 03-10-2023 ambulatory CLAUDIA ELLINGTON [facility] Start: 03-08-2023 End: 03-10-2023 Evaluation and management of inpatient Lawrence Reveles Facility:[facility] Start: 03-07-2023 End: 03-10-2023 Evaluation and management of inpatient Orlando HiLaurita Wade [facility] Start: 02-27-2023 End: 02-27-2023 ambulatory MISTY MACKEY Facility:[facility] Start: 11-14-2022 End: 11-14-2022 ambulatory [facility] Start: 11-13-2022 End: 11-13-2022 Emergency department patient visit Wilfredo Villareal [facility] Start: 11-05-2022 End: 11-06-[address] CLAUDIA ELLINGTON . Facility: Start: 11-05-2022 End: 11-05-2022 ambulatory TEENA TRAN . Facility: Start: 10-15-2022 End: 10-15-2022 ambulatory JUAN MIGUEL HUYNH [facility] Start: 10-13-2022 End: 10-13-2022 ambulatory [facility] Start: 10-10-2022 End: 10-11-2022 Emergency department patient visit Ko Draper [facility] Start: 10-06-2022 End: 10-06-2022 ambulatory [facility] Start: 10-05-2022 End: 10-06-2022 Emergency department patient visit Han Bolaños [facility] Start: 10-03-[address] CLAUDIA ELLINGTON . Facili ty:[facility] Start: 09-25-2022 End: 09-26-[address] CLAUDIA ELLINGTON . Facility:[facility] Start: 09-24-2022 End: 09-25-[address] CLAUDIA ELLINGTON . Facility:[facility] Start: 09-11-2022 End: 09-11-[address] CLAUDIA ELLINGTON . Facility:[facility] Start: 08-05-2022 End: 08-05-[address] CLAUDIA ELLINGTON . Facility:[facility] Start: 07-31-2022 End: 07-31-2022 ambulatory MD Claudia Ellington Work Phone: [facility] Work Phone: Start: 07-31-2022 End: 07-31-2022 Patient encounter procedure MD Claudia Ellington Work Phone: [facility] [place] Work Phone: Start: 07-24-2022 End: 07-24-[address] CLAUDIA ELLINGTON . Facility:[facility] Start: 07-23-2022 End: 07-23-[address] CLAUDIA ELLINGTON . Facility:[facility] Start: 07-08-2022 End: 07-08-2022 Emergency department patient visit Ko Draper [facility] Start: 07-08-2022 End: 07-08-[address] CLAUDIA ELLINGTON . Facility:[facility] Start: 07-04-2022 End: 07-04-2022 Emergency department patient visit Radha Whipple [facility] Start: 07-02-2022 End: 07-02-2022 Emergency department patient visit Wilfredo Villareal [facility] Start: 06-25-2022 End: 06-25-[address] CLAUDIA ELLINGTON . Facility:[facility] Start: 06-20-2022 End: 06-20-[address] CLAUDIA ELLINGTON . Facility:[facility] Start: 05-26-2022 End: 05-26-[address] CLAUDIA ELLINGTON . Facility:[facility] Start: 05-14-2022 End: 05-14-2022 ambulatory CLAUDIA ELLINGTON [facility] Start: 04-26-2022 End: 04-27-[address] CLAUDIA ELLINGTON . Facility:[facility] Start: 04-04-2022 End: 04-04-2022 Patient encounter procedure MISTY MACKEY [facility] Start: 03-20-2022 End: 03-20-[address] CLAUDIA ELLINGTON . Facility:[facility] Start: 03-05-2022 End: 03-05-[address] CLAUDIA ELLINGTON . Facility:[facility] Start: 01-17-2022 End: 01-17-[address] CLAUDIA ELLINGTON . Facility:[facility] Start: 12-04-2021 End: 12-05-2021 Emergency department patient visit Wilfredo Villareal [facility] Start: 09-02-2018 Patient encounter procedure Martina Bedolla Facility:[id number] Start: 03-29-2018 Patient encounter procedure Martina Bedolla Facility:[id number] Start: 03-18-2018 Patient encounter procedure Liss Salvador Facility:[id number] Start: 01-25-2018 Patient encounter procedure Martina Bedolla Facility:[id number] Procedures Date Procedure Procedure Detail Performing Clinician Myringotomy and antwan strickland of middle ear Wilfredo Villareal Plan of Treatment Date Care Activity Detail Author Start: 01-29-2028 Tetanus vaccination TETANUS [facility] Start: 04-03-2023 COVID-19 VACCINE ( season) COVID-19 VACCINE () [facility] Start: 03-13-2023 [facility] Start: 03-10-2023 Hospital admission [facility] Start: 03-10-2023 [facility] Start: 2020 Screening for Chlamy patricia trachomatis CHLAMYDIA SCREEN [facility] Start: 12-31-2019 HIV screening HIV SCREENING DISCUSSI ON [facility] Start: 2004 Hepatitis C screening HEPATITI S C VIRUS SCREENING [facility] Start: 2004 Screening for Chlamy patricia trachomatis GONORRHEA SCREEN [facility] Patient Education Depression, Ad ult (DC) [facility] DC Instructions [facility] Work Phone: Patient referral [facility] Work Phone: Immunizations Immunization Date Immunization Notes Care Provider Hope ackerman 05-06-2023 influenza virus vaccine, unspecified formulation Zenon Vizcainowei [facility] 10-03-2022 SARS-CoV-2 (COVID-19 ) [id number] [facility] 07-31-2022 meningococcal B vaccine, fully recombinant Orlando Paster [facility] 07-31-2022 SARS-CoV-2 (COVID-19 ) [id number] vaccine Orlando Paster [facility] 07-01-2022 influenza virus vaccine, unspecified formulation Orlando Paster [facility] 07-01-2022 meningococcal ACWY vaccine, unspecified formulation Orlando Paster [facility] 07-01-2022 meningococcal B vaccine, fully recombinant Orlando Paster [facility] 07-01-2022 SARS-CoV-2 (COVID-19 ) mRNA-[id number] vaccine Orlando Paster [facility] 08-09-2019 HPV, unspecified formulation Orlando Paster [facility] 08-09-2019 influenza virus vaccine, unspecified formulation Orlando Paster [facility] 01-28-2018 meningococcal ACWY vaccine, unspecified formulation Orlando Paster [facility] 01-28-2018 tetanus toxoid, redu elisabeth diphtheria toxoid, and acellular pertussis vaccine, adsorbed Orlando Paster [facility] 01-26-2018 HPV, unspecified formulation Orlando Paster [facility] 07-21-2011 hepatitis A vaccine, unspecified formulation Orlando Paster [facility] 01-16-2011 Diphtheria, tetanus toxoids and acellular pertussis vaccine, and poliovirus vaccine, inactivated Orlando Paster [facility] 01-16-2011 hepatitis A vaccine, unspecified formulation Orlando Paster [facility] 01-16-2011 measles, mumps, rubella, and varicella virus vaccine Orlando Paster [facility] 04-20-2006 diphtheria, tetanus toxoids and acellular pertussis vaccine Orlando Paster [facility] 04-20-2006 varicella virus vaccine Will alexis Paster [facility] 01-28-2006 Hib, unspecified formulation Orlando Paster [facility] 01-28-2006 measles, mumps and rubella virus vaccine Orlando Paster [facility] 07-23-2005 DTaP-hepatitis B and poliovirus vaccine Orlando Paster [facility] 07-23-2005 haemophilus influenz ae type b vaccine, PRP-T conjugate Orlando Paster [facility] 05-28-2005 DTaP-hepatitis B and poliovirus vaccine [facility] 05-28-2005 haemophilus influenz ae type b vaccine, PRP-T conjugate [facility] 03-27-2005 DTaP-hepatitis B and poliovirus vaccine [facility] 03-27-2005 haemophilus influenz ae type b vaccine, PRP-T conjugate [facility] 2004 hepatitis B vaccine, pediatric or pediatric/adolescent dosage [facility] Payers Date Payer Category Payer Unknown [employer] [id number] 2023-Present [address] [place] [address] [id number] 2022 Self-pay [id number] 2004 Unknown [id number] 2.16.840.1.514672.3.579.2.479 2004 Unknown [id number] 2.16.840.1.015154.3.579.2.983 2004 Unknown [id number] 2.16.840.1.026900.3.579.2.727 2004 Unknown [id number] 2.16.840.1.058621.3.579.2.727 2004 Unknown [id number] 2.16.840.1.821591.3.579.2.727 2004 Unknown [id number] 2.16.840.1.719352.3.579.2.727 2004 Unknown [id number] 2.16.840.1.452290.3.579.2.727 2004 Unknown [id number] 2.16.840.1.264747.3.579.2.727 2004 Unknown [id number] 2.16.840.1.481913.3.579.2.727 2004 Unknown [id number] 2.16.840.1.985265.3.579.2.1259 2004 Unknown [id number] 2.16.840.1.464350.3.579.2.727 2004 Unknown [id number] 2.16.840.1.638934.3.579.2.727 2004 Unknown [id number] 2.16.840.1.314872.3.579.2.727 2004 Unknown [id number] 2.16.840.1.779238.3.579.2.727 2004 Unknown [id number] 2.16.840.1.615342.3.579.2.727 2004 Unknown [id number] 2.16.840.1.550661.3.579.2.727 1979 Unknown [id number] 2.16.840.1.576531.3.579.2.356 1979 Unknown [id number] 2.16.840.1.139556.3.579.2.356 1979 Unknown [id number] 2.16.840.1.972379.3.579.2.356 1979 Unknown [id number] 2.16.840.1.889699.3.579.2.356 1979 Unknown [id number] 2.16.840.1.560662.3.579.2.593 1979 Unknown [id number] 2.16.840.1.850620.3.579.2.593 1979 Unknown [id number] 2.16.840.1.183317.3.579.2.593 1979 Unknown [id number] 2.16.840.1.666168.3.579.2.593 1979 Unknown [id number] 2.16.840.1.465429.3.579.2.593 1979 Unknown [id number] 2.16.840.1.193360.3.579.2.593 1979 Unknown [id number] 2.16.840.1.352215.3.579.2.593 1979 Unknown [id number] 2.16.840.1.177787.3.579.2.593 1979 Unknown [id number] 2.16.840.1.279750.3.579.2.593 1979 Unknown [id number] 2.16.840.1.171123.3.579.2.593 1979 Unknown [id number] 2.16.840.1.061408.3.579.2.593 1979 Unknown [id number] 2.16.840.1.828862.3.579.2.593 1979 Unknown [id number] 2.16.840.1.479416.3.579.2.593 1979 Unknown [id number] 2.16.840.1.515530.3.579.2.593 1979 Unknown [id number] 2.16.840.1.574899.3.579.2.593 1979 Unknown [id number] 2.16.840.1.944087.3.579.2.593 1979 Unknown [id number] 2.16.840.1.793531.3.579.2.593 1979 Unknown [id number] 2.16.840.1.714392.3.579.2.593 1979 Unknown [id number] 2.16.840.1.848292.3.579.2.479 1979 Unknown [id number] 2.16.840.1.240441.3.579.2.479 1979 Unknown [id number] 2.16.840.1.498873.3.579.2.479 1979 Unknown [id number] 2.16.840.1.406666.3.579.2.479 1979 Unknown [id number] 2.16.840.1.759627.3.579.2.479 1959 Unknown [id number] 1959 Unknown [id number] Unknown [id number] 2.16.840.1.014316.3.579.2.531 Unknown [id number] 2.16.840.1.402656.3.579.2.531 Unknown [id number] 2.16.840.1.702714.3.579.2.531 Social History Date Type Detail Facility Start: 12-04-2021 End: 02-09-2024 Tobacco smoking status Never smoked tobacco (finding) [facility] Start: 06-30-2023 Sex Assigned At Female F [facility] Tobacco [facility] Comment on above: denies Tobacco smoking status No Smokin g Status Entered [facility] Start: 2005 Sex Assigned At Female F [facility] Start: 06-30-2023 [facility] Start: 06-30-2023 History of Social function [facility] Start: 06-30-2023 Tobacco Comment vape [facility] Start: 2005 Sex Assigned At Not on file [facility] Goals Date Patient Goal Desired Activity /State Functional Status Date Assessment Result Facility 01-22-2024 Functional Status N/A [facility] 01-13-2024 Functional Status N/A [facility] 01-12-2024 Functional Status N/A [facility] 05-11-2023 Functional Status N/A [facility] 03-16-2023 Functional Status N/A [facility] 03-13-2023 Functional status Patient at Baseline [facility] Work Phone: 03-07-2023 Functional Status N/A [facility] 03-07-2023 Functional Status [facility] 11-13-2022 Functional Status N/A [facility] 10-10-2022 Functional Status N/A [facility] 10-05-2022 Functional Status N/A [facility] 07-08-2022 Functional Status N/A [facility] 07-04-2022 Functional Status N/A [facility] 07-02-2022 Functional Status N/A [facility] Mental Status Date Assessment Result Facility 03-13-2023 Cognitive function Cognitive Sta tus Patient at Baseline [facility] Work Phone: Clinical Notes 07-02-2022 to 02-16-2024 RadiologyRadiologyValorie Hansen MD - 06/30/2023 2:00 PM EST Note Date & Type Note Facility 02-16-2024 Evaluation + Plan note Future Scheduled TestsCT Abdomen w/ Contrast 02/16/24 [facility] 01-22-2024 Evaluation + Plan note Future Scheduled TestsCT Abdomen w/ Contrast 01/22/24 [facility] 01-13-2024 Hospital Discharge instructions Patient Education 01/13/2024 20:49:15 Acute Pancreatitis, Qmra-ur-Pfjp Acute Pancreatitis Acute pancreatitis happens when there [...] Follow these instructions at home: Medicines Take gewc-poj-dfayftg and prescription medicines only as told by [...] provider. Document Revised: 06/10/2022 Document Reviewed: 06/10/2022 Zecco Patient Education 2022 [employer]. Follow Up Care 01/13/2024 18:23:07 With:Zenon Hernandez Address: [address] [phone] Business (1) When:01/16/2024 20:48:55 Comments:Call to schedule an appointment with the demonstrator knitting for further management of care With:Claudia Ellington Address: [address] [place] [address] [address] [place] [address]- Business (1) When:Within 3 Day(s) [facility] 01-12-2024 Hospital Discharge instructions Patient Education [...] Water. Coffee and tea (caffeinated or decaffeinated). Totz. Liquid nutritional supplements. Soft drinks. Nondairy milks, such as almond, coconut, rice, or soy milk. Sweets and desserts Custard. Pudding. Flavored gelatin. Smooth ice cream (without nuts or candy pieces). Sherbet. Frozen ice pops. Romanian ice. Pudding pops. Seasonings and condiments Salt and pepper. Spices. Vinegar. Ketchup. Yellow mustard. Smooth sauces, such as Hollandaise, cheese sauce, or white sauce. Soy sauce. Syrup. Honey. Jelly (without fruit pieces). Other foods Totz powder. Cream soups. Strained soups. The items [...] Document Reviewed: 05/07/2021 Elsevier Patient Education 2022 [employer]. 01/12/2024 16:42:34 Nausea, Adult, Nxnh-lm-Vyvd Nausea, Adult Nausea is feeling like you [...] fruit juice). ?Low-calorie sports drinks. Eat bland, afdi-oj-gdudav foods in small amounts as you are able, such as: ?Bananas. ?Applesauce. ?Rice. ?Low-fat (lean) meats. ?Rodey. ?Crackers. Avoid drinking fluids that have a lot of sugar or caffeine in them. This includes energy drinks, sports drinks, and soda. Avoid alcohol. Avoid spicy or fatty foods. General instructions Take dybi-rys-vodjxao and prescription medicines only as told by [...] cannot use soap and water, use hand apartment community assistant manager. Make sure that everyone in your home [...] drink what your doctor tells you. Take dxqd-mxt-xnvimcb and prescription medicines only as told by your doctor. Contact a doctor right away if your symptoms get worse or you have new symptoms. Keep all follow-up visits. This information is not intended to replace advice given to you by your health care provider. Make sure you discuss any questions you have with your health care provider. Document Revised: 01/24/2022 Document Reviewed: 01/24/2022 [employer] Patient Education 2022 [employer]. 01/12/2024 16:42:31 Abdominal Pain, Adult, Hzcx-cb-Cnun Abdominal Pain, Adult Many things can cause belly (abdominal) pain. Most times, belly pain is not dangerous. Many cases of belly pain can be watched and treated at home. Sometimes, though, belly pain is serious. Your doctor will try to find the cause of your belly pain. Follow these instructions at home: Medicines Take brrs-jgc-bxqkirw and prescription medicines only as told by [...] your belly pain for any changes. Take mkff-rxt-tjctqmb and prescription medicines only as told by [...] provider. Document Revised: 11/28/2019 Document Reviewed: 11/28/2019 Zecco Patient Education 2022 [employer]. Follow Up Care 01/12/2024 14:44:40 With:Claudia Ellington MD Address: [address] [place] [address] [place] [address]- When:01/15/2024 [facility] 06-30-2023 History of Present illness Narrative [...] her perioperative risk. documented in this encounter [facility] 05-25-2023 Note Admission and Discha rge Information [...] 46.4 % Lymph Auto - 41.3 % Chicot Auto - 8.8 % Eos Auto - 3.1 % Basophil Auto - 0.4 % Neutro Absolute - 2.6 E9/L Lymph Absolute - 2.3 E9/L Chicot Absolute - 0.5 E9/L Eos Absolute - 0.2 E9/L Basophil Absolute - 0.0 E9/L Capillary Glucose POC (05/12/2023) Glucose Cap - 84 mg/dL POC Device SN - [id number] POC User ID - [id number] POC Username - NERY ALCALA CBC w/ [...] Follow-up With When Contact Information Joann Zamorano [address] [address]- Business (1) Additional Instructions: Call for hospital followup appointment 2-3 weeks Claudia Ellington [address] [place] [phone]- Business (1) Additional Instructions: Call for followup appointment Patient Education Seizure, Adult [facility] Comment on above: Result Comment: Elec [...] Follow these instructions at home: Medicines Take tcrj-nrl-pkswucz and prescription medicines only as told by [...] medicines are used to treat seizures. Take xkgw-pge-mnnjuwg and prescription medicines only as told by your health care provider. This information is not intended to replace advice given to you by your health care provider. Make sure you discuss any questions you have with your health care provider. Document Revised: 01/25/2021 Document Reviewed: 01/25/2021 Zecco Patient Education 2022 [employer]. Follow Up Care 04/22/2023 12:48:03 With:Joann Zamorano Address: [address] [address]- Business (1) When: Unknown Comments:Call for hospital followup appointment 2-3 weeks With:Claudia Ellingotn Address: [address] [place] [phone]- Business (1) When: Unknown Comments:Call for followup appointment [facility] 05-13-2023 Evaluation + Plan note Extrac [...] date 05/11/23 16:03:00 EDT, 05/11/23 16:03:[address] [facility] [place], lurasidone 60 mg oral tablet, Oral, [...] on the hospitalization course and therapeutic plan. [facility]10-10-2023 NoteChief Complaint LTME Reason for Consultation [...] sensation in all 4 extremities Cerebellar exam: Hoesuc-nm-jirq reveals no ataxia. Gait is normal Assessment/Plan [...] 12/04/2021 Immunizations Vaccine Date Status SARS-CoV-2 (COVID-19) [id number].[id number] 10/03/2022 Recorded meningococcal group B vaccine 07/31/2022 [...] hepatitis A pediatric vaccine (more content not included)...[facility] Comment: Electronically Signed By: [...] sensation in all 4 extremities. Cerebellar exam: Gnhgib-dk-fytn reveals no ataxia. Gait is normal. Assessment/Plan [...] 12/04/2021 Immunizations Vaccine Date Status SARS-CoV-2 (COVID-19) mRNAMUL.[id number] 10/03/2022 Recorded meningococcal group B vaccine 07/31/2022 [...] 05/28/2005 Recorded haemophilus b (more content not included)...[facility]Result Comment: Electronically Signed By: Diann SHER, Riya\.br\Date and Time Signed: 05/11/23 09:39 EDT\.br\Electronically Co-Signed By: Melecio Rubio MD\.br\Date and Time Co-Signed: 05/12/23 08:36 [id number] NoteBasic Information Admit Date/Time:05/11/2023 07:29 Chief Complaint [...] date 05/11/23 16:03:00 EDT, 05/11/23 16:03:[address] [facility] [place], lurasidone 60 mg oral tablet, Oral, [...] agreement with POC. P (more content not included)...[facility] Result Comment: Electronically Signed By: Alicia Sidhu\.br\Date and Time Signed: 05/11/23 20:00 EDT\.br\Electronically Co-Signed By: Akosua LR MD\.br\Date and Time Co-Signed: 05/12/23 06:56 [id number] Hospital Discharge instructions Patient Education 03/16/2023 17:50:47 [...] Follow these instructions at home: Medicines Take vupj-rgc-htywcex and prescription medicines only as told by [...] and water are not available, use hand apartment community assistant manager. ?Leave stitches (sutures), skin glue, or adhesive [...] provider. Document Revised: 10/24/2021 Document Reviewed: 10/24/2021 Zecco Patient Education 2022 [employer]. 03/16/2023 17:50:47 Head Injury, Adult Head Injury, [...] Ask your health care provider for a rfjz-yd-tids plan for gradually returning to activities. Ask [...] your friends, family, a trusted colleague, and chamber worker about your injury, symptoms, and restrictions. Have them watch for any new or worsening problems. General instructions Take pyxu-gay-dqwmggk and prescription medicines only as told by [...] provider. Document Revised: 06/01/2020 Document Reviewed: 06/01/2020 Zecco Patient Education 2022 [employer]. Follow Up Care 03/16/2023 16:19:26 With:Claudia Ellington Address: [address] [place], [place] [phone] Business (1) When:03/19/2023 17:36:52 [facility]08-11-2023 Discharge summary Author John Monson [facility] March 13, 2023 9:40am Note Date/Time March 13, 2023 9: 40am [facility] [address] [place] [address] Discharge Summary Signed Patient: Rose Mary Schneider MR#: [id number] : 2005 Acct:[id number] Age/Sex: 17 / F Adm Date: 3 Loc: Room: [address] [place] [address]: John Monson MD Copies to: [...] admission note),the patient was pink slipped from [employer] and acknowledged she attempted suicide by overdosing [...] No Activity Restrictions Instructions: Depression, Adult (DC), [facility] DC Instructions Prescriptions: Continued levetiracetam [...] 14 Days Qty: 21 0RF Follow Up: [facility] [Outside] (Sees Dr. Mackey.) Joann Zamorano DO [Courtesy/Consulting Physician] - (Contact your neurologist with any needs related to history of seizures. ) Claudia Ellington MD [Primary Care Provider] - (Contact your primary care providerwith any medical needs. ) Documented By: John Monson MD 03/13/2338 Signed By: <Electronically signed by John Monson MD> 03/13/2340 [facility] Work Phone: 1(257) 827-815908-10-2023 Progress note Author John Monson [facility] March 12, 2023 1:37pm Note Date/Time March 12, 2023 1: 37pm [facility] [address] [place] [address] Psychiatry Progress Note Signed Patient: Rose Mary Schneider MR#: [id number] : 2005 Acct:[id number] Age/Sex: 17 / F Adm Date: 3 Loc: Room: [address] [place] [address] Type : ADM IN Attending Dr: John [...] therapy Documented By: John Monson MD 03/12/23 1154 Signed By: <Electronically signed by John Monson MD> 03/12/23 3822 [facility] Work Phone: 1(383) 595-174808-09-2023 History and physical note Author John Monson [facility] March 11, 2023 1:28pm Note Date/Time March 11, 2023 1:2 8pm [facility] [address] [place] [address] Psychiatry H&P Signed Patient: Rose Mary Schneider MR#: [id number] : 2005 Acct:[id number] Age/Sex: 17 / F Adm Date: 3 Loc: Room: [address] [place] [address] Type: ADM IN Attending Dr: John Monson MD Copies to: MD Claudia Avila MD~ Date of Service: 03/11/2023 HPI History of Present Illness History of present illness: This is a 17-year-old female with reported history of depression and suicidal ideation who presents for inpatient admission due to worsening of suicidal thoughts. Reportedly (per admission note),the patient was pink slipped from [employer] and acknowledged she attempted suicide by overdosing [...] and she stated that she was compliant. [facility] Vacc[facility] for COVID-19?: Yes Medical [...] signed by John Monson MD> 03/11/23 1328 [facility] Work Phone: 1(805) 759-773908-08-2023 Hospital Discharge instructions Patient Education 03/10/2023 12:40:41 [...] in the [place] Call the [facility] services helpline (211 in the [place] Call or text a suicide hotline to speak with a trained counselor. The following suicide hotlines are available in the [place]: ?4-993-966-TALK ( or 805 in the [place] ?6-508-UMONZXU ( ). ?Text 943511. This is the Crisis Text Line in the [place] ? . This is a hotline for South African speakers. ? . This is a hotline for TTY users. ?5-332-7-U-ELIZA ( ). This is a hotline for lesbian, schultz, bisexual, transgender, or questioning youth. ?For a list of hotlines in [place], visit suicide.org/hotlines/international/ubjxvq-odfimou-daunyode.html Contact a crisis center or a local [...] to anyone or being with other people. ?Jmvv-ml-lkkb conversation is best to help them understand [...] physical and a mental health checkup. Take peqm-qkq-urpagic and prescription medicines only as told by [...] information National Suicide Prevention Lifeline: www.suicidepreventionlifeline.org Hopeline: www.hopeline.Microinox [place] Foundation for Suicide Prevention: www.afsp.org The Eliza Project (for lesbian, schultz, bisexual, transgender, or questioning youth): www.thetrevorproject.org National [place] of Mental Health: www.nimh.nih.gov/health/topics/suicide-prevention Suicide Prevention Resources: afsp.org/xiyircr-iyauvvfxof-yywipgett Contact a health care provider if: You [...] provider. Document Revised: 02/13/2022 Document Reviewed: 11/28/2021 [employer] Patient Education 2022 [employer]. Follow Up Care 03/07/2023 14:09:50 With:Claudia Ellington Address: [address] [place] [phone] Business (1) When: Unknown Comments:Call for followup appointment With:Joann Zamorano DO, [facility] Address: When:2 to 4 weeks [facility]08-08-2023 Evaluation + Plan noteExtracted from: Title:Discharge [...] release With When Contact Information Claudia Ellington [address] [place] [id number] Business (1) Additional Instructions: Call for followup [...] Ordered: [facility] Hospital Care/Day Moderate 35 Minutes 84550 2. Hypokalemia, (E87.6: Hypokalemia)Hypokalemia Resolved [facility] Moderate 35 Minutes 73215 2. Suicidal ideation (R45.851: Suicidal ideations) No longer expressing suicidal ideation She was pink slipped yesterday; awaiting MHP Ordered: [facility] Hospital Care/Day Moderate 35 Minutes 04439 3. Antihistamines overdose (T45.0X1A: Poisoning by antiallergic and antiemetic drugs, accidental (unintentional), initial encounter) Ordered: [facility] Hospital Care/Day Moderate 35 Minutes 56083 5. Depression (F32.A: Depression, unspecified) Continue fluoxetine Ordered: [facility] Hospital Care/Day Moderate 35 Minutes 04279 6. Seizure (R56.9: Unspecified convulsions) Continue Keppra, Lamictal and lurasidone Seizure precautions Ordered: [facility] Hospital Care/Day Moderate 35 Minutes 50553 7. Obesity (E66.9: Obesity, unspecified) Ordered: [facility] Hospital Care/Day Moderate 35 Minutes 04555 8. On deep vein thrombosis (DVT) prophylaxis (Z79.899: Other lobsterman (current) drug therapy) Early ambulation with SCDs Ordered: [facility] Hospital Care/Day Moderate 35 Minutes 32367 Orders: Transfer Patient to Transfer Patient to [...] deep vein thrombosis (DVT) prophylaxis (Z79.899: Other senior living (current) drug therapy) Early ambulation and SCDs [...] deep vein thrombosis (DVT) prophylaxis (Z79.899: Other lobsterman (current) drug therapy) Extracted from: Title:APSO Note [...] overdose with Tylenol/diphenhydramine. Secondary to suicide ideation/attempt. 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 Acetaminophen level ekta to 40 but trended down to undetectable. Treating with IVF Thursday. LFTs within normal limit. Repeat LFTs and PT/INR in AM. Ordered: Basic Metabolic Panel Comprehensive Metabolic Panel Consult to Credit Cashier eGFR Extra Lav Tube Hepatic Function Panel PT [facility] Hospital Care/Day Moderate 35 Minutes 92661 2. Suicidal ideation (R45.851: Suicidal ideations) Supportive care. 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 Mental health evaluation in a.m. once medically stable. Ordered: Consult to Credit Cashier [facility] Hospital Care/Day Moderate 35 Minutes 67015 3. Antihistamines overdose (T45.0X1A: Poisoning by antiallergic and antiemetic drugs, accidental (unintentional), initial encounter) Treated with charcoal. Respiratory status and circulation currently stable. Treated with IV fluid. Bladder scan so far not retaining urine. Ordered: [facility] Hospital Care/Day Moderate 35 Minutes 96233 4. Hypokalemia (E87.6: Hypokalemia) Secondary to gastrointestinal loss and IV fluid. We will replace orally. Ordered: potassium chloride, 40 mEq = 2 tab(s), Tab-ER, Oral, BID for 2 dose(s), Stop date 03/09/23 8:59:00 EDT, Routine, Start date 03/08/23 9:00:00 EDT, 03/08/23 8:36:00 EDT Comprehensive Metabolic Panel [facility] Hospital Care/Day Moderate 35 Minutes 05042 5. Depression (F32.A: Depression, unspecified) On fluoxetine. Ordered: [facility] Hospital Care/Day Moderate 35 Minutes 41161 6. Seizure (R56.9: Unspecified convulsions) No reported seizure. On Lamictal and Keppra. Ordered: lorazepam, 1 mg = 0.5 mL, Injection, IV Push, QID PRN Seizure, Routine, Start date 03/07/23 18:04:00 EDT 7. Obesity (E66.9: Obesity, unspecified) Recommend therapeutic lifestyle modification changes. 8. On deep vein thrombosis (DVT) prophylaxis (Z79.899: Other senior living (current) drug therapy) SCDs. Disposition: Pending mental health evaluation in AM. I discussed the diagnosis and plan of care with the patient at the bedside. Moderate level of MDM based on addressing above issues. This documentation was transcribed using voice recognition software. Several attempts were made to ensure accuracy. However inadvertent computerized property underwriter errors may be present. Jennifer Retana. Hospitalist. [...] observation. Ordered: Basic Metabolic Panel Consult to Credit Cashier Hepatic Function Panel Initial Hospital Care/Day High 75 Minutes 40539 2. Suicidal ideation (R45.851: Suicidal ideations) Supportive care. Social work evaluation. Mental health evaluation once medically stable. Ordered: Consult to Credit Cashier Initial Hospital Care/Day High 75 Minutes 84308 3. Antihistamines overdose (T45.0X1A: Poisoning by antiallergic and antiemetic drugs, accidental (unintentional), initial encounter) Treated with charcoal. Currently sedated with secured and circulation stable. Monitor patient with end-tidal CO2 monitor. We will observe for delirium/agitation and may treat with physostigmine. Bladder scan every 6 hours to check for urinary retention. Ordered: Initial Hospital Care/Day High 75 Minutes 73131 4. Depression (F32.A: Depression, unspecified) On fluoxetine at home. Ordered: Initial Hospital Care/Day High 75 Minutes [id number] 5. Seizure (R56.9: Unspecified convulsions) On Keppra and Lamictal. Ordered: lorazepam, 1 mg = 0.5 mL, Injection, IV Push, QID PRN Seizure, Routine, Start date 03/07/23 18:04:00 EDT, 03/07/23 18:04:00 EDT Initial Hospital Care/Day High 75 Minutes 33894 6. Obesity (E66.9: Obesity, unspecified) Recommend therapeutic lifestyle modification changes. 7. On deep vein thrombosis (DVT) prophylaxis (Z79.899: Other lobsterman (current) drug therapy) SCDs. Disposition: The patient [...] made to ensure accuracy. However inadvertent computerized property underwriter errors may be present. Jennifer Retana. Hospitalist. [...] Diet Resuscitation Status - Full Up ad Dionen Vital Signs Weight Extracted from: Title:ED Note [...] Continuous Salicylate Level XR Chest [facility]08[facility]23 NoteAdmission and Discharge Information Admit Date/Time:03/08/2023 17:43 Admitting Physician - Orlando Wade DO Consulting Physician - Melecio Rubio MD Admitting Diagnoses: 1. Poisoning by 4-Aminophenol derivatives, intentional self-harm, initial encounter, 03/09/2023 2. Hypokalemia, 03/09/2023 Discharge Order Date Discharge Patient - Ordered -- 03/10/23 12:22:00 EDT, to [address] [place] [address] Discharge Diagnoses 1. Intentional acetaminophen overdose, Poisoning [...] the setting of OD, Consult and Co-manage Credit Cashier Consult - Completed -- 03/07/23 17:58:00 EDT, [...] 60.3 % Lymph Auto - 28.7 % Chicot Auto - 8.6 % Eos Auto - 1.9 % Basophil Auto - 0.5 % Neutro Absolute - 4.1 E9/L Lymph Absolute - 2.0 E9/L Chicot Absolute - 0.6 E9/L Eos Absolute - [...] - 7.2 gm/dL A (more content not included)...[facility]: Result Comment: Electronically Signed By: Lawrence Reveles DO\.br\Date and Time Signed: 03/10/23 12:27 [id number] NoteCRM entered the room to discuss dc planning. PCP, DME and insurance discussed. Patient is alert andinvolved in plan of care. Contact information provided and whiteboard updated. CRM spoke to pt and mother about pink slip. Pt is agreeable to inpt psych stay. Pending [facility] eval and bed. [place] slip willexp at 2pm. SW is following up. Ant dc 03/10. CRM to follow. [facility] will facilitate transport.[facility] on [facility]:Result Comment: Electronically Signed By: Peyton Mccarty\.br\Date and Time Signed: 03/10/23 12:11 [id number] NoteChief Complaint I over dose of tylenol [...] deep vein thrombosis (DVT) prophylaxis (Z79.899: Other senior living (current) drug therapy) Problem List/Past Medical History [...] 12/04/2021 Immunizations Vaccine Date Status SARS-CoV-2 (COVID-19) mRNAMUL.ORD![id number] 10/03/2022 Recorded (more content not included)...[facility]:Result Comment: Electronically Signed By: Mehdi SHER, Irene Villegas\.br\Date and Time Signed: 03/09/23 11:35 EDT\.br\Electronically Co-Signed By: Daniel Reaves DO\.br\Date and Time Co-Signed: 03/09/23 11:52 [id number] Note13:50: Nursing requested patient evaluation at bedside, [...] po bid. EEG ordered, will [facility] tomorrow[facility]Comment on above: Result Comment: Electronically Signed By: ADELINE MARCANO, Akosua\.br\Date and Time Signed: 03/08/23 16:06 [id number] NoteChief Complaint patient c/o dizziness, lethargy and [...] 100 pills that are in the bottle. [employer] very dizzy and sleepy was also having [...] 14:43:00) Lymph Auto: 28.7 % (03/07/23 14:43:00) Chicot Auto: 8.6 % (03/07/23 14:43:00) Eos Auto: 1.9 % (03/07/23 14:43:00) Basophil Auto: 0.5 % (03/07/23 14:43:00) Neutro Absolute: 4.1 E9/L (03/07/23 14:43:00) Lymph Absolute: 2 E9/L (03/07/23 14:43:00) Chicot Absolute: 0.6 E9/L (03/07/23 14:43:00) Eos Absolute: [...] (03/07/23 14:43:00) Bili I (more content not included)...[facility] HospitalComment on above:Result Comment: Electronically Signed By: DEBBIE MARCANO, Jennifer\.br\Date and Time Signed: 03/07/23 18:12 [id number] Hospital Discharge instructions Patient Education 11/13/2022 18:45:15 [...] (911 in the [place] The [facility] and human services helpline (211 in the [place] Go to your nearest emergency department. Call a suicide hotline to speak with a trained counselor. The following suicide hotlines are available in the [place]: ?0-580-352-TALK ( ). ?6-776-KYOXDMC ( ). ? . This is a hotline for [place] African speakers. ? . This is a hotline for TTY users. ?3-092-1-U-ELIZA ( ). This is a hotline for lesbian, schultz, bisexual, transgender, or questioning youth. ?For a list of hotlines in [place], visit www.suicide.org/hotlines/international/nzxjcu-xklfhjy-nsmwkunr.html Contact a crisis center or a local [...] day, even if you do notfeel sociable. Pwue-jf-rtsr conversation is best to help them understand [...] day can help you feel better. Take oqfv-vie-eacwxoy and prescription medicines only as told by [...] National Suicide Prevention Lifeline: www.suicidepreventionlifeline.org Hopeline: www.hopeline.com [place] Foundation for Suicide Prevention: www.afsp.org The Elzia Project (for lesbian, schultz, bisexual, transgender, or [...] away. Call emergency services, go to your nearest[facility] department or crisis center, or [...] 2004 Document Revised: 11/10/2019 Document Reviewed: 03/02/2018 [employer] Patient Education 2020 [employer] Follow Up Care 11/13/2022 13:37:26 With:[facility] Address:Unknown When:11/16/2022 18:44:48 Comments:Return should you have worsening symptoms or feel unsafe. Call 911 or mental health counseling at any time. With:Claudia Ellington Address: [address] [place], [place] [id number] Business (1) When:11/16/2022 18:44:44 Comments:Call the office [...] you develop any new or worsening symptoms. [facility]04-13-[facility] Evaluation + Plan noteExtracted from: Title:ED Note Author:Wilfredo Villareal DO Date: Suicidal ideation (R45.851: Suicidal ideations) Orders: Acetaminophen Level Automated Diff Beta hCG Qual CBC w/ Auto Diff Communication Order Comprehensive Metabolic Panel Consult to Mental Health Drug Screen Urine ECG Pediatric Ethanol Level Extra Blue Tube Salicylate Level UA With Cult Reflex [facility]03-11-2023 Hospital Discharge instructions Patient Education 10/11/2022 [...] what your health care provider or the communications and signals supervisor recommends for you. What are the signs [...] Follow these instructions at home: Medicines Take vxjk-xku-sajguns and prescription medicines only as told by your health care provider. Avoid any medicines that contain acetaminophen for as long as told by your health care provider. Todo this: ?Check all medicine labels for the presence of acetaminophen. Acetaminophen is found in many teno-igx-konfojy and prescription medicines. These include medicines for [...] the hospital. Call: Your local emergency services (980 in the [place] Your local poison control [...] 05/04/2015 Document Revised: 02/18/2019 Document Reviewed: 02/18/2019 [employer] Patient Education 2020 [employer]. Follow Up Care 10/10/2022 21:52:59 With:[facility] Address:Unknown When:10/14/2022 Comments:Please follow-up with your primary care doctor in addition to your counselor in the next 1 to 2 days. Return to the ED for any new or worsening symptoms. With:Claudia Ellington Address: [address] [place] [address] [place] [address]- Business (1) When:10/14/2022 [facility]03-10-[facility] Evaluation + Plan noteExtracted from: Title:ED [...] (FT) Salicylate Level U Beta Hcg Qual [facility]03-06-2023 Evaluation + Plan noteExtracted from: Title:ED Note Author:Han Bolaños DO Date :10/06/22 Syncope (R55: Syncope and co llapse) Orders: Automated Diff Basic Metabolic Panel Capillary Glucose POC CBC w/ Auto Diff ECG Pediatric ED Cardiac Monitoring Oxygen Saturation Oxygen Therapy PT & PTT Saline Lock Insert Troponin 0 Hr. U Beta Hcg Qual UA With Cult Reflex XR Chest Single [facility]03-[facility] Hospital Discharge instructions Patient Education 10/06/2022 [...] right away. Call your local emergency services (121 in the [place] Donot drive yourself to [...] your urine pale yellow. General instructions Take ojxq-aws-mbmitxu and prescription medicines only as told by [...] right away. Call your local emergency services (091 in the [place] Do not drive yourself [...] 07/20/2006 Document Revised: 07/02/2018 Document Reviewed: 06/28/2018 [employer] Patient Education 2019 [employer] Follow Up Care 10/05/2022 23:50:01 With:Claudia Ellington Address: [address] [place], [place] [id number]- Business (1) When:Within 3 Day(s) [facility]12-07[facility]22 Hospital Discharge instructions Patient Education 07/08/2022 [...] until he or she recovers. Medicines Give lrgj-lcp-lllasll and prescription medicines only as told by [...] check with your local DMV (department of [employer]) to find out about local driving laws. [...] Document Reviewed: 10/07/2019 Elsevier Patient Education 2019 [employer]. Follow Up Care 07/08/2022 18:51:22 With:Claudia Ellington Address: [address] [place] [address] [place] [address] Business (1) When:07/11/2022 [facility] Evaluation + Plan note Diagnostic Tests Pending * Rapid COVID Antigen ([facility]) 07/08/22 * Influenza A&B Ag 07/08/22 * Group A Strep by PCR 07/08/22 [facility]12-02-[facility]22 Hospital Discharge instructions Patient Education 07/04/2022 [...] and regular daily exercise. Give your child bpxw-mpj-zhyvxvw and prescription medicines only as told by [...] to find more information Epilepsy Foundation: www.epilepsy.com [place] Epilepsy Society: www.aesnet.org Contact a health care [...] 10/29/2017 Document Revised: 11/10/2019 Document Reviewed: 10/29/2017 [employer] Patient Education 2020 [employer]. 07/04/2022 19:27:04 Non-Epileptic Seizures, Pediatric Non-Epileptic Seizures, [...] she has a seizure. Give your child tlst-jhe-wbdbmet and prescription medicines only as told by [...] 10/26/2017 Document Revised: 07/02/2018 Document Reviewed: 10/26/2017 [employer] Patient Education 2020 [employer]. Follow Up Care 07/04/2022 18:04:21 With:Joann Zamorano Address: [facility] [address] [place] [address]- Business (1) When:07/07/2022 19:23:00 With:Claudia Rakel Address: [address] [facility] [address] [place], [place] [phone]- Business (1) When:07/07/2022 19:22:49 Comments:Follow-up with your primary care provider in 3 to 5 days. If symptoms worsen, do not improve, or new symptoms arise please report back to emergency department for further evaluation. [facility] Hospital Discharge instructions Patient Education 07/02/2022 [...] she has a seizure. Give your child fahh-dkx-koicivs and prescription medicines only as told by [...] 10/26/2017 Document Revised: 07/02/2018 Document Reviewed: 10/26/2017 [employer] Patient Education 2020 [employer]. 07/02/2022 16:03:45 Helping Your Child Manage Non-Epileptic [...] and regular daily exercise. Give your child prdn-rbf-ykhxzyw and prescription medicines only as told by [...] to find more information Epilepsy Foundation: www.epilepsy.com [place] Epilepsy Society: www.aesnet.org Contact a health care [...] 10/29/2017 Document Revised: 11/10/2019 Document Reviewed: 10/29/2017 [employer] Patient Education 2020 [employer]. Follow Up Care 07/02/2022 13:18:31 With:Joann Zamorano Address:Unknown When:07/05/2022 15:30:57 Comments:Follow-up with Dr. Zamorano for further evaluation of your seizure-like activity. With:Claudia Ellington Address: [address] [place] [address] Business (1) When:07/05/2022 15:30:49 Comments:Follow-up with your primary care provider in 3 to 5 days. If symptoms worsen, do not improve, or new symptoms arise please report back to emergency department for further evaluation. [facility]11[facility]30[facility] Evaluation + Plan noteExtracted from: Title:ED Note Author:Alexandru Barajas PA-C te:07/02/22 Seizure-like activity (R56.9 : Unspecified convulsions) Orders: Automated Diff Basic Metabolic Panel CBC w/ Auto Diff [facility] No data available for this section [facility] Future Appointments Appointment Date:02/16/2024 10:30:00 AM Scheduled Provider: Location:.[facility] Appointment Type:US Abdominal/Pelvis (FT) Future Scheduled Tests Radiology* US Gallbladder 02/16/24 * CT Abdomen w/ Contrast 02/16/24 [facility] [place] Evaluation noteNo assessment information available [facility] Work Phone: Evaluation note* Diagnosis Onset Date Resolution Status Depression acute Suicidal ideations acute [facility] Work Phone: Evaluation note* Diagnosis Macromastia- Primary Hypertrophy of breast Thoracic spine pain Pain in thoracic spine [facility] No data available for this section [facility] Additional Instructions Regular Diet No [facility] Work Phone: Progress note No data available for this section [facility] Summary Purpose Family History No Family [...] section and content) DATE CREATED AUTHOR 09/20/2018 [facility] DATE CREATED AUTHOR AUTHOR'S ORGANIZ ATION 10/27/2019 [employer] DATE CREATED AUTHOR AUTHOR'S ORGANIZ ATION 11/08/2022 [facility] DATE CREATED AUTHOR AUTHOR'S ORGANIZ ATION 03/11/2023 [facility] DATE CREATED AUTHOR AUTHOR'S ORGANIZ ATION 07/02/2023 [facility] DATE CREATED AUTHOR AUTHOR'S ORGANIZ ATION 01/13/2024 [facility] DATE CREATED AUTHOR AUTHOR'S ORGANIZ ATION 01/15/2024 [facility] DATE CREATED AUTHOR AUTHOR'S ORGANIZ ATION 01/16/2024 [facility] DATE CREATED AUTHOR AUTHOR'S ORGANIZ ATION 02/24/2024 [place] DATE CREATED AUTHOR AUTHOR'S ORGANIZ ATION 03/03/2024 [facility] DATE CREATED AUTHOR AUTHOR'S ORGANIZ ATION 03/04/2024 [facility] DATE CREATED AUTHOR AUTHOR'S ORGANIZ ATION 03/05/2024 [facility] DATE CREATED AUTHOR AUTHOR'S ORGANIZ ATION 03/09/2024 [facility] Care Team (unrecognized sect ion and content) Team Status: Inactive Member Role Status Dates Claudia Ellington MD Primary Care Provider, Attending Pr omer Active Team Status: Active Member Role Status Dates Claudia Ellington MD Primary Care Provider Active Team Status: Inactive Member Role Status Dates Claudia Ellington MD Primary Care Provider Active John Monson MD Admit Provider, Attending Provider Active Electronic Equipment Set Up Operator Relationship Specialty Start Date End Date Claudia Ellington MD [address] [phone] PCP - General Family Medicine 06/10/23 Goals [...] PATIENT - Claudia Santacruz MD [address] [place] [address] Valorie Hansen MD [address] [place], [place] [id number] Referral ID Status Reason Start Date Expiration Date V isits Requested Visits Authorized [id number] Pending Review 06/30/2023 07/24/2024 1 1 FOR [...] BE BASED ON THE PRIMARY CLINICAL RECORDS. [facility]. provides no warranty or guarantee of the accuracy or completeness of information in this document.
[2024-03-11 15:27] LABS: C. Difficile PCR NEGATIVE (NEGATIVE)
== END 2024-03-11 09:41 | disposition home or self-care (01) ==
LOC: LAB 09:40
PROVIDERS: PCP Family Medicine; Visit Provider Family Medicine
DX: K52.9 Noninfective gastroenteritis and colitis, unspecified (principal)
CPT/HCPCS: 87045; 87046; 87427; 87493

== ENCOUNTER 2024-03-13 12:32 | Emergency (ER) | payer OTHER, SELFPAY ==
[2024-03-13 12:37] VITALS: BP 118/88; PULSE 82; TEMP 36.8; O2SAT 96; BMI 39.8
--- OUTSIDE RECORDS SUMMARY | 2024-03-13 12:38 | XMS_ITS | CCD ---
Author Organization [facility] CliniSytn Care Team Providers Care Outdoor Studies Director Name Role Phone Martina Bedolla Attending Unavailable [...] DR TAYLOR Admitting Unavailable HOY ., DR TYALOR Attending Unavailable HOY ., DR TAYLOR Primary [...] Unavailable MD Claudia Ellington Primary Care Provider [phone] MD John Monson Admit Provider MD John Monson Attending Provider Claudia Ellington MD Primary Care Provider [phone] VALORIE HANSEN Attending Unavailable RAKEL CLAUDIA M Primary Care Unavailable RAKEL CLAUDIA Pike Referring Unavailable Lawrence Reveles Attending Unavailable Mantador, Melecio Consulting Unavailable Jennifer RETANA Admitting Unavailable Ramiro, MD Majano Consulting Unavailable Mantador, Melecio Consulting Unavailable Mantador, Melecio Consulting Unavailable Mantador, Melecio Consulting Unavailable Mantador, Melecio Consulting Unavailable Mantador, Melecio Consulting Unavailable Mantador, Melecio Consulting Unavailable Mantador, Melecio Consulting Unavailable Radha Whipple Attending Unavailable Sole, Radha Attending Unavailable CHERYL QUIROZ Referring Unavailabl e Akosua LR Admitting Unavailable AMIAkosua Stokes Attending Unavailable Ramiro, Melecio Consulting Unavailable Ramiro, MD Majano Consulting Unavailable Mantador, Melecio Consulting Unavailable Mantador, Melecio Consulting Unavailable Mantador, Melecio Consulting Unavailable Mantador, Melecio Consulting Unavailable Mantador, Melecio Consulting Unavailable Mantador, Melecio Consulting Unavailable Mantador, Melecio Consulting Unavailable MISTY MACKEY Attending Unavailable [...] hours as needed for pain and pain [place] 325 mg-5 mg oral tablet 1 tab(s), [...] Pain, # 30 tab(s), Refills(s) 0, Pharmacy: [facility]/pharmacy #[id number], 165.1, cm, 01/13/24 18:35:00 EDT, [...] BID, # 60 tab(s), Refills(s) 0, Pharmacy: [facility]/pharmacy #[id number], 165.1, cm, 05/11/23 8:01:00 EDT, [...] anxiety, # 15 tab(s), Refills(s) 0, Pharmacy: [facility]/pharmacy #[id number], 165, cm, 07/04/22 18:11:00 EST, [...] (1 source) Polyene Antifungal Start: 06-16-2023 nystatin [id number] UNIT/GM Powder powder Apply 1 Application topically. [...] Pain, # 8 tab(s), Refills(s) 0, Pharmacy: [facility]/pharmacy #[id number], 165.1, cm, 01/12/24 15:00:00 EDT, Height/Length Dosing, 117.7, kg, 01/12/24 15:00:00 EDT, Weight Dosing Start Date: 01/12/24 Status: Ordered Zofran ODT 4 mg Tab-Dis (7 sources) Start: 01-12-2024 take 1 tablet by mouth every eight hours as needed for nausea Zofran ODT 4 mg Tab-Dis 4 mg = 1 tab(s), Oral, q8hr, PRN Nausea/Vomiting, # 12 tab(s), Refills(s) 0, Pharmacy: [facility]/pharmacy #[id number], 165.1, cm, 01/12/24 15:00:00 EDT, [...] current use of drug therapy; Translations: [Other snf (current) drug therapy] Onset: 3 Episodic Other [...] Oral contrast amount in ml's: 900 Normal [facility] CHEMISTRYOrdered By: SYSTEM SYSTEM on 03-03-2024 [...] (Bld) [Mass fraction] 5.3 % Normal <=5.9% [facility] ChemAutoSS Glu Fastingon 03-03-2024 Glucose [Mass/Vol] 91 mg/dL Normal 55-99 [facility] Comment on above: Performed By: #### 2 [id number] #### [facility] [address] [place] [address] AlaH7mom 03-03-2024 HbA1c (Bld) [Mass fraction] 5.3 % Normal <=5.9 [facility] Comment on above: Performed By: #### 7 [id number] #### [facility] [address] [place] [address] Lipid Panelon 03-03-2024 Cholesterol [Mass/Vol] 225 mg/dL High 120-200 [facility] Comment on above: Performed By: #### 2 [id number] #### [facility] [address] [place] [address] Cholesterol in HDL [Mass/Vol] 53 mg/dL Invalid Interpretation Code [facility] Comment on above: Result Comment: '>= 60 LOW RISK' '<= 40 HIGH RISK' Performed By: #### 2 [id number] #### [facility] [address] [place] [address] Cholesterol in LDL [Mass/Vol] 165 mg/dL High <=129 [facility] Comment on above: Performed By: #### 2 [id number] #### [facility] [address] [place] [address] Cholesterol in VLDL [Mass/Vol] 35 mg/dL Normal 7-40 [facility] Comment on above: Performed By: #### 2 [id number] #### [facility] [address] [place] [address] Triglyceride [Mass/Vol] 173 mg/dL High <=149 [facility] Comment on above: Performed By: #### 2 [id number] #### [facility] [address] [place] [address] Vitamin D 25 Hydroxyon 03-03 25-hydroxyvitamin D3 [Mass/Vol] 18.5 ng/mL Low 30.0-100.0 [facility] Comment on above: Performed By: #### 5 [id number] #### [facility] [address] [place] [address] US Gallbladderon 02-17-2024 US Gallbladder Exam Date/Time: [...] Devine Transcribed by: GARTH Technologist: LI Iqbal [facility] General Surgery Office/Clini c Noteon 02-09-2024 General Surgery Office/Clinic Note General Surgery Office/Clinic Note 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 female [...] with voice recognition artificial intelligence software, specifically [employer], [employer] and or [employer]. Substitutions may have occurred due to the inherent limitations of voice recognition and artificial intelligence software. ATTESTATION: Documentation services were performed after patient or guardian consented to allow [employer] to record this visit. CORINNE financial specialist and provider reviewed before signing. CORINNE: [...] mg Cap 08/04 (more content not included)... [facility] Comment on above: Result Comment: Elec [...] (APAP/butalbital/caffeine 325 mg-50 mg-40 mg Tab) acetaminophen-hydrocodone ([place] 325 mg-5 mg oral tablet) cetirizine (cetirizine [...] Ambulatory, Reason: Pancreatitis, No, No, Acute pancreatitis [facility] Gastroenterology Office/Clin ic Noteon 01-22-2024 Gastroenterology Office/Clinic Note Chief Complaint follow up to er, abdominal pain, pancreatitis HPI Staff This is a 18 year old female who presents today for a follow up from [facility] ER on 01/12/2024 and 01/13/2024 abdominal pain, generalized abd pain [facility] ED: 01/13/2024 Chief Complaint seen here yesterday [...] currently on control. Discharge Prescription List Prescriptions [place] 325 mg-5 mg oral tablet, 1 tab(s), Oral, q6hr, PRN Pepcid AC 10 mg oral tablet, 10 mg= 1 tab(s), Oral, BID, PRN [facility] ED: 01/12/2024 Chief Complaint abd pain all [...] 84.7 fL (01/13/24) Chloride: 105 mmol/L (01/13/24) [place] Absolute: 0.5 E9/L (01/13/24) CO2: 27 mmol/L (01/13/24) [place] Auto: 7.4 % (01/13/24) Creatinine: 0.8 mg/dL [...] soft, nontender (more content not included)... Normal [facility] Comment on above: Result Comment: Elec [...] against CT imaging as it will not private branch exchange operator. Patient will be sent home with pain [...] Nausea/Vomiting, # 12 tab(s), Refills(s) 0, Pharmacy: [facility]/pharmacy #[id number], 165.1, cm, 01/12/24 15:00:00 EDT, Height/Length Dosing, 117.7, kg, 01/12/24 15:00:00 EDT, Weight Dosing 3. Elevated lipase (R74.8: Abnormal levels of other serum enzymes) Ordered: tram (more content not included)... Normal [facility] Comment on above: Result Comment: Elec [...] processes. The patient is being discharged with [place] and Pepcid for pain management. Patient states [...] Pain, # 30 tab(s), Refills(s) 0, Pharmacy: [facility]/pharmacy #[id number], 165.1, cm, 01/13/24 18:35:00 EDT, [...] Discharge Disposition home Discharge Prescription List Prescriptions [place] 325 mg-5 mg oral tablet, 1 tab(s), Oral, q6hr, PRN Pepcid AC 10 mg oral tablet, 10 mg= 1 tab(s), Oral, BID, PRN Follow- (more content not included)... Normal [facility] Comment on above: Result Comment: Elec tronically Signed By: Mirella Camilo PA-C\.br\Date and Time Signed: 01/13/24 21:12 EDT\.br\Electronically Co-Signed By: Mirella Camilo PA-C\.br\Date and Time Co-Signed: 01/14/24 00:04 EDT\.br\Electronically Co-Signed By: Migue Farrell M.D.\.br\Date and Time Co-Signed: 01/14/24 07:02 EDT BMPon 01-13-2024 Anion gap [Moles/Vol] 9 mmol/L Normal 6-16 [facility] Comment on above: Performed By: #### 2 [id number] #### [facility] [address] [place] [address] Calcium [Mass/Vol] 8.6 mg/dL Low 8.9-11.1 [facility] Comment on above: Performed By: #### 2 [id number] #### [facility] [address] [place] [address] Chloride [Moles/Vol] 105 mmol/L Normal 101-111 [facility] Comment on above: Performed By: #### 2 [id number] #### [facility] [address] [facility] [place] [address] CO2 [Moles/Vol] 27 mmol/L Normal 21-31 [facility] Comment on above: Performed By: #### 2 081512 #### [facility] [address] [place] [address] Creatinine [Mass/Vol] 0.8 mg/dL Normal 0.5-1.3 [facility] Comment on above: Performed By: #### 2 [id number] #### [facility] [address] [place] [address] Glucose [Mass/Vol] 96 mg/dL Normal 55-199 [facility] Comment on above: Performed By: #### 2 014096 #### [facility] [address] [place] [address] Potassium [Moles/Vol] 3.6 mmol/L Normal 3.5-5.3 [facility] Comment on above: Performed By: #### 2 109283 #### [facility] [address] [place] [address] Sodium [Moles/Vol] 137 mmol/L Normal 135-145 [facility] Comment on above: Performed By: #### 2 [id number] #### [facility] [address] [place] [address] Urea nitrogen [Mass/Vol] 9 mg/dL Normal 5-21 [facility] Comment on above: Performed By: #### 2 142210 #### [facility] [address] [place] [address] Urea nitrogen/Creatinine [Mass ratio] 11 No Units Normal 10-20 [facility] Comment on above: Performed By: #### 2 771283 #### [facility] [address] [place] [address] CBC w/ Auto Diffon 4 Basophils/100 WBC (Bld) 0.6 % Normal 0.0-2.0 [facility] Comment on above: Performed By: #### 2 328363 #### [facility] [address] [place] [address] Basophils/Leukocytes Auto (Bld) [Pure # fraction] 0.0 E9/L Normal 0.0-0.2 [facility] Comment on above: Performed By: #### 2 [id number] #### [facility] [address] [place] [address] Eosinophils (Bld) [#/Vol] 0.2 E9/L Normal 0.0-0.5 [facility] Comment on above: Performed By: #### 2 [id number] #### [facility] [address] [place] [address] Eosinophils/100 WBC (Bld) 2.6 % Normal 0.0-8.0 [facility] Comment on above: Performed By: #### 2 887035 #### [facility] [address] [place] [address] Erythrocyte distribution width (RBC) [Ratio] 13.8 % Normal 10.9-14.2 [facility] Comment on above: Performed By: #### 2 718598 #### [facility] [address] [place] [address] Hematocrit (Bld) [Volume fraction] 35.6 % Normal 34.0-46.0 [facility] Comment on above: Performed By: #### 2 722915 #### [facility] [address] [place] [address] Hemoglobin (Bld) [Mass/Vol] 11.8 g/dL Low 12.0-16.0 [facility] Comment on above: Performed By: #### 2 884298 #### [facility] [address] [place] [address] Lymphocytes (Bld) [#/Vol] 2.9 E9/L Normal 1.0-4.0 [facility] Comment on above: Performed By: #### 2 219362 #### [facility] [address] [place] [address] Lymphocytes/100 WBC (Bld) 40.4 % Normal 14.0-50.0 [facility] Comment on above: Performed By: #### 2 041029 #### [facility] [address] [place] [address] MCH (RBC) [Entitic mass] 28.0 pg Normal 27.0-34.0 [facility] Comment on above: Performed By: #### 2 048126 #### [facility] [address] [place] [address] MCHC (RBC) [Mass/Vol] 33.1 g/dL Normal 31.4-36.0 [facility] Comment on above: Performed By: #### 2 267903 #### [facility] [address] [place] [address] MCV (RBC) [Entitic vol] 84.7 fL Normal 80.0-100.0 [facility] Comment on above: Performed By: #### 2 824852 #### [facility] [address] [place] [address] Monocytes (Bld) [#/Vol] 0.5 E9/L Normal 0.2-1.0 [facility] Comment on above: Performed By: #### 2 900366 #### [facility] [address] [place] [address] Neutrophils (Bld) [#/Vol] 3.5 E9/L Normal 2.0-7.5 [facility] Comment on above: Performed By: #### 2 [id number] #### [facility] [address] [place] [address] Neutrophils/100 WBC (Bld) 49.0 % Normal 36.0-75.0 [facility] Comment on above: Performed By: #### 2 013739 #### [facility] [address] [place] [address] Platelet mean volume (Bld) [Entitic vol] 8.1 fL Normal 6.4-10.8 [facility] Comment on above: Performed By: #### 2 709977 #### [facility] [address] [place] [address] Platelets (Bld) [#/Vol] 394.0 E9/L Normal 150.0-500.0 [facility] Comment on above: Performed By: #### 2 128622 #### [facility] [address] [place] [address] RBC (Bld) [#/Vol] 4.2 E12/L Low 4.3-5.9 [facility] Comment on above: Performed By: #### 2 867149 #### [facility] [address] [place] [address] WBC corrected for nucl RBC Auto (Bld) [#/Vol] 7.1 E9/L Normal 4.0-11.0 [facility] Comment on above: Performed By: #### 2 555424 #### [facility] [address] [place] [address] CHEMISTRYOrdered By: SYSTEM SYSTEM on 01-13-2024 Albumin [...] Consent for Treatmenton 01-01 Consent for Treatment [id number] Normal [facility] Discharge Instructionson Discharge Instructions [id number] Normal [facility] ED Clinical Summaryon 2023 ED Clinical Summary (Inserted Image. Nida ble to display) [place] [id number] ED Clinical Summary Person Information Name: ROSE MARY SCHNEIDER/[facility] Age: 18 Years : 2005 Sex: Female Language: Djiboutian PCP: Claudia Ellington MD Marital Status: Single Phone: [phone] Visit Id: Visit Reason: Abdominal pain; AB [...] 01/13/2024 21:12:34 01/13/2024 21:12:34 01/13/2024 21:12:34 ADDRESS: [address] [place] [phone] PHYS DOC NOTES: MEDICAL INFORMATION: Prescriptions Given: New Medications [facility]/pharmacy #[id number], [address], [place] [id number], [phone] acetaminophen-hydrocodone ([place] 325 mg-5 mg oral tablet) 1 Tablets [...] 0. PATIENT EDUCATION INFORMATION: Instructions: Acute Pancreatitis, Lbkj-vx-Ywbz Follow up: With: Address: When: Zenon Hernandez [address] [place] [address] [address] [place] [phone] [place] (1) In 3 days 01/16/2024 Comments: Call to schedule an appointment with the landscaping supervisor for further management of care With: Address: When: Claudia Rakel [facility] [place] [phone] [place] (1) In 3 days DIAGNOSIS: Acute pancreatitis; Mild nausea Normal [facility] ED Patient Education Noteon 01-13-2024 ED [...] these instructions at home: Medicines ? Take ffri-ezu-nyxwnvr and prescription medicines only as told by [...] provider. Document Revised: 06/10/2022 Document Reviewed: 06/10/2022 [employer] Patient Education ? 2022 [employer]. Normal [facility] ED Patient Summaryon 024 ED Patient Summary (Inserted Image. Nida ble to display) [place] [id number] Patient Discharge Instructions Person Information Name: ROSE MARY SCHNEIDER Age: 18 Years Arrival Date: 01/13/2024 18:21:08 Discharge Diagnosis: Acute pancreatitis; Mild nausea Primary Care Physician: Claudia Ellington MD Provider Information Primary Provider: Ko Draper DO Advanced Inclusion Intern:Mirella Camilo PA-C The exam and treatment you received in the Emergency Department were for an urgent problem and are not intended as complete care. It is important that you follow up with a doctor, nurse practitioner, or physician?s automobile mechanic assistant for ongoing care. If your symptoms [...] Follow-up Instructions: With: Address: When: Zenon Hernandez [address] [place] [address], [address] [place] [phone] Business (1) In 3 days 01/16/2024 Comments: Call to schedule an appointment with the landscaping supervisor for further management of care With: Address: When: Claudia Ellington [address] [place] [address], [facility] [address] Business (1) In 3 days In the event that this physician does not participate in your insurance network, please consult with your insurance company to find a nearby participating provider. Patient Education Materials: Acute Pancreatitis, Xuxs-bf-Thnb A MESSAGE TO ALL PATIENTS REGARDING OPIOIDS PRESCRIPTION OPIOIDS: WHAT YOU NEED TO KNOW Prescription opioids can be used to help relieve wxjbbapb-kh-blfxfo pain and are often prescribed following a [...] and Drug Administration (www.fda.gov/Drugs/Resour cesForYou). ? Visit www.[employer] (more content not included)... Normal [facility] HEMATOLOGYOrdered By: SYSTEM SYSTEM on 01-13-2024 [...] 01-13-2024 Albumin [Mass/Vol] 3.4 g/dL Normal 3.3-5.0 [facility] Comment on above: Performed By: #### 2 [id number] #### [facility] [address] [place] [address] Albumin/Globulin (S) [Mass conc ratio] 1.0 Low 1.1-2.2 [facility] Comment on above: Performed By: #### 2 459414 #### [facility] [address] [place] [address] ALP [Catalytic activity/Vol] 45 Int._Unit/L Normal 21-98 [facility] Comment on above: Performed By: #### 2 [id number] #### [facility] [address] [place] [address] ALT No additional P-5'-P [Catalytic activity/Vol] 11 Int._Unit/L Normal 6-46 [facility] Comment on above: Performed By: #### 2 414930 #### [facility] [address] [place] [address] AST [Catalytic activity/Vol] 12 Int._Unit/L Normal 5-43 [facility] Comment on above: Performed By: #### 2 625124 #### [facility] [address] [place] [address] Bilirubin [Mass/Vol] 0.3 mg/dL Normal 0.0-1.1 [facility] Comment on above: Performed By: #### 2 893493 #### [facility] [address] [place] [address] Bilirubin.direct [Mass/Vol] 0.0 mg/dL Normal 0.0-0.4 [facility] Comment on above: Performed By: #### 2 922573 #### [facility] [address] [place] [address] Bilirubin.indirect [Mass or moles/Vol] 0.3 mg/dL Normal 0.1-0.9 [facility] Comment on above: Performed By: #### 2 023749 #### [facility] [address] [place] [address] Globulin (S) [Mass/Vol] 3.3 g/dL Normal 1.4-4.0 [facility] Comment on above: Performed By: #### 2 320032 #### [facility] [address] [place] [address] Protein [Mass/Vol] 6.7 g/dL Normal 6.0-7.8 [facility] Comment on above: Performed By: #### 2 521708 #### [facility] [address] [place] [address] Lipase Levelon 01-13-2024 Lipase [Catalytic activity/Vol] 144 U/L High 13-58 [facility] Comment on above: Performed By: #### 2 879431 #### [facility] [address] [place] [address] RAD - Preliminary Cat Scan R eporton 01-13-2024 RAD - Preliminary Cat Scan Report [id number] Normal [facility] UA with Cult Rflxon 01-13-20 24 Bilirubin Ql (U) Negative Normal Negative [facility] Comment on above: Performed By: #### 4 [id number] ####[place] [id number] Clarity (U) Clear Normal Clear [facility] Comment on above: Performed By: #### 4 [id number] ####[facility] [address] [place] [address] Color (U) Colorless Abnormal Yellow [facility] Comment on above: Result Comment: Micr oscopic readings are only performed on those samples that meet specific criteria set forth by [facility]. Performed By: #### 4 [id number] ####[place] [address] [place] [address] Epithelial cells.squamous Auto (Urine sed) [#/Area] 0-2 Invalid Interpretation Code [facility] Comment on above: Performed By: #### 4 [id number] ####[facility] [address] [place] [address] Glucose Ql (U) Negative Normal Negative [facility] Comment on above: Performed By: #### 4 [id number] ####[place] [address] [place] [address] Hemoglobin Auto test strip (U) [Mass/Vol] 1+ mg/dL Abnormal Negative [facility] Comment on above: Performed By: #### 4 [id number] ####[facility] [address] [place] [address] Ketones Auto test strip Ql (U) Negative Normal Negative [facility] Comment on above: Performed By: #### 4 [id number] ####[facility] [address] [place] [address] Leukocyte esterase Auto test strip Ql (U) Negative Normal Negative [facility] Comment on above: Performed By: #### 4 [id number] ####[address] [place] [address] Mucus Auto Ql (U) Negative Normal Negative [facility] Comment on above: Performed By: #### 4 [id number] ####[address] [address] Nitrite Auto test strip Ql (U) Negative Normal Negative [facility] Comment on above: Performed By: #### 4 [id number] ####[address] [place] [address] pH (U) 6.5 [pH] Invalid Interpretation Code 5.0-9.0 [facility] Comment on above: Performed By: #### 4 [id number] ####[address] [place] [address] Protein Ql (U) Negative Normal Negative [facility] Comment on above: Performed By: #### 4 [id number] ####[place] [address] [place] [address] RBC Ql (U) 0-3 Normal 0-3 [facility] Comment on above: Performed By: #### 4 [id number] ####[address] [address] Specific gravity (U) [Rel density] 1.024 Invalid Interpretation Code 1.005-1.030 [facility] Comment on above: Performed By: #### 4 [id number] ####[address] [place] [address] Urobilinogen (U) [Mass/Vol] Negative Normal Negative [facility] Comment on above: Performed By: #### 4 [id number] ####[facility] [address] [place] [address] WBC Auto (Urine sed) [#/Area] 0-5 Normal 0-5 [facility] Comment on above: Performed By: #### 4 [id number] ####[facility] [address] [place] [id number] Type of Urine collection method Clean Catch Normal [facility] Comment on above: Performed By: #### 4 [id number] ####[facility] [address] [place], [place] [id number] URINALYSISOrdered By: SYSTEM SYSTEM on 01-13-2024 Bilirubin Ql (U) Negative Normal Negativemg/ dL FT UA Auto SS Clarity (U) Clear (01/13/24 7:41 PM) Normal Clear [facility] UA Auto SS Color (U) Colorless 1 *ABN* (01/13/24 7:41 PM) Invalid Interpretation Code Yellow [facility] UA Auto SS Comment on above: Interpretive Data: M icroscopic readings are only performed on those samples that meet specific criteria set forth by [facility]. Epithelial cells.squamous Auto (Urine sed) [...] Ql (U) 0-3 graded/HPF Normal 0-3graded/H PF [facility] UA Auto SS Specific gravity (U) [Rel density] 1.024 *NA* (01/13/24 7:41 PM) Invalid Interpretation Code 1.005 - 1.030 [facility] UA Auto SS Urobilinogen (U) [Mass/Vol] Negative Normal Negativemg/ dL [facility] [place]A Auto SS WBC Auto (Urine sed) [#/Area] 0-5 graded/HPF Normal 0-5graded/H PF [facility] UA Auto SS URINALYSISOrdered By: Mirella Camilo on 01-13-2024 UA Spec Desc Clean Catch (01/13/24 7:41 PM) Normal [facility] UA Auto SS Work Phone: eGFRon 01-13-2024 eGFR 109 mL/min/1.73 m2 Normal >=59 [facility] Comment on above: Order Comment: Order added by Discern Expert. Performed By: #### 1 [id number] #### [facility] [address] [place] [address] CBC w/ Auto Diffon 4 Basophils/100 WBC (Bld) 0.4 % Normal 0.0-2.0 [facility] Comment on above: Performed By: #### 2 [id number] #### [facility] [address] [place] [address] Basophils/Leukocytes Auto (Bld) [Pure # fraction] 0.0 E9/L Normal 0.0-0.2 [facility] Comment on above: Performed By: #### 2 [id number] #### [facility] [address] [place] [address] Eosinophils (Bld) [#/Vol] 0.2 E9/L Normal 0.0-0.5 [facility] Comment on above: Performed By: #### 2 [id number] #### [facility] [address] [place] [address] Eosinophils/100 WBC (Bld) 2.3 % Normal 0.0-8.0 [facility] Comment on above: Performed By: #### 2 [id number] #### [facility] [address] [place] [address] Erythrocyte distribution width (RBC) [Ratio] 13.9 % Normal 10.9-14.2 [facility] Comment on above: Performed By: #### 2 [id number] #### [facility] [address] [place] [address] Hematocrit (Bld) [Volume fraction] 37.3 % Normal 34.0-46.0 [facility] Comment on above: Performed By: #### 2 084634 #### [facility] [address] [place] [address] Hemoglobin (Bld) [Mass/Vol] 12.7 g/dL Normal 12.0-16.0 [facility] Comment on above: Performed By: #### 2 330796 #### [facility] [address] [place] [address] Lymphocytes (Bld) [#/Vol] 2.3 E9/L Normal 1.0-4.0 [facility] Comment on above: Performed By: #### 2 714041 #### [facility] [address] [place] [address] Lymphocytes/100 WBC (Bld) 33.8 % Normal 14.0-50.0 [facility] Comment on above: Performed By: #### 2 972144 #### [facility] [address] [place] [address] MCH (RBC) [Entitic mass] 28.5 pg Normal 27.0-34.0 [facility] Comment on above: Performed By: #### 2 398248 #### [facility] [address] [place] [address] MCHC (RBC) [Mass/Vol] 34.0 g/dL Normal 31.4-36.0 [facility] Comment on above: Performed By: #### 2 863953 #### [facility] [address] [place] [address] MCV (RBC) [Entitic vol] 83.9 fL Normal 80.0-100.0 [facility] Comment on above: Performed By: #### 2 299755 #### [facility] [address] [place] [address] Monocytes (Bld) [#/Vol] 0.6 E9/L Normal 0.2-1.0 [facility] Comment on above: Performed By: #### 2 072753 #### [facility] [address] [place] [address] Neutrophils (Bld) [#/Vol] 3.8 E9/L Normal 2.0-7.5 [facility] Comment on above: Performed By: #### 2 785825 #### [facility] [address] [place] [address] Neutrophils/100 WBC (Bld) 55.0 % Normal 36.0-75.0 [facility] Comment on above: Performed By: #### 2 553851 #### [facility] [address] [place] [address] Platelet 454.0 E9/L Normal 150.0-500.0 [facility] Comment on above: Performed By: #### 2 910739 #### [facility] [address] [place] [address] Platelet mean volume (Bld) [Entitic vol] 7.5 fL Normal 6.4-10.8 [facility] Comment on above: Performed By: #### 2 141364 #### [facility] [address] [place] [address] RBC (Bld) [#/Vol] 4.4 E12/L Normal 4.3-5.9 [facility] Comment on above: Performed By: #### 2 965890 #### [facility] [address] [place] [address] WBC corrected for nucl RBC Auto (Bld) [#/Vol] 6.9 E9/L Normal 4.0-11.0 [facility] Comment on above: Performed By: #### 2 697316 #### [facility] [address] [place] [address] CHEMISTRYOrdered By: SYSTEM SYSTEM on 01-12-2024 Albumin [...] 01-12-2024 Albumin [Mass/Vol] 3.7 g/dL Normal 3.3-5.0 [facility] Comment on above: Performed By: #### 2 395613 #### [facility] [address] [place] [address] Albumin/Globulin (S) [Mass conc ratio] 1.0 Low 1.1-2.2 [facility] Comment on above: Performed By: #### 2 619296 #### [facility] [address] [place] [address] ALP [Catalytic activity/Vol] 49 Int._Unit/L Normal 21-98 [facility] Comment on above: Performed By: #### 2 754605 #### [facility] [address] [place] [address] ALT No additional P-5'-P [Catalytic activity/Vol] 12 Int._Unit/L Normal 6-46 [facility] Comment on above: Performed By: #### 2 578198 #### [facility] [address] [place] [address] Anion gap [Moles/Vol] 9 mmol/L Normal 6-16 [facility] Comment on above: Performed By: #### 2 923354 #### [facility] [address] [place] [address] AST [Catalytic activity/Vol] 12 Int._Unit/L Normal 5-43 [facility] Comment on above: Performed By: #### 2 422238 #### [facility] [address] [place] [address] Bilirubin [Mass/Vol] 0.3 mg/dL Normal 0.0-1.1 [facility] Comment on above: Performed By: #### 2 976134 #### [facility] [address] [place] [address] Calcium [Mass/Vol] 9.2 mg/dL Normal 8.9-11.1 [facility] Comment on above: Performed By: #### 2 315800 #### [facility] [address] [place] [address] Chloride [Moles/Vol] 105 mmol/L Normal 101-111 [facility] Comment on above: Performed By: #### 2 464184 #### [facility] [address] [place] [address] CO2 [Moles/Vol] 27 mmol/L Normal 21-31 [facility] Comment on above: Performed By: #### 2 970275 #### [facility] [address] [place] [address] Creatinine [Mass/Vol] 0.7 mg/dL Normal 0.5-1.3 [facility] Comment on above: Performed By: #### 2 883657 #### [facility] [address] [place] [address] Globulin (S) [Mass/Vol] 3.7 g/dL Normal 1.4-4.0 [facility] Comment on above: Performed By: #### 2 626521 #### [facility] [address] [place] [address] Glucose [Mass/Vol] 89 mg/dL Normal 55-199 [facility] Comment on above: Performed By: #### 2 039518 #### [facility] [address] [place] [address] Potassium [Moles/Vol] 3.7 mmol/L Normal 3.5-5.3 [facility] Comment on above: Performed By: #### 2 461127 #### [facility] [address] [place] [address] Protein [Mass/Vol] 7.4 g/dL Normal 6.0-7.8 [facility] Comment on above: Performed By: #### 2 925482 #### [facility] [address] [place] [address] Sodium [Moles/Vol] 137 mmol/L Normal 135-145 [facility] Comment on above: Performed By: #### 2 148979 #### [facility] [address] [place] [address] Urea nitrogen [Mass/Vol] 8 mg/dL Normal 5-21 [facility] Comment on above: Performed By: #### 2 215308 #### [facility] [address] [place] [address] Urea nitrogen/Creatinine [Mass ratio] 11 No Units Normal 10-20 [facility] Comment on above: Performed By: #### 2 101151 #### [facility] [address] [place] [address] Consent for Treatmenton 01-01 Consent for Treatment [id number] Normal [facility] Discharge Instructionson Discharge Instructions [id number] Normal [facility] ED Clinical Summaryon 2023 ED Clinical Summary (Inserted Image. Nida ble to display) [address] [address] ED Clinical Summary Person Information Name: ROSE MARY SCHNEIDER [facility] Age[facility] 18 Years : 2005 Sex: Female Language: Djiboutian PCP: Claudia Ellington MD Marital Status: Single Phone: [phone] Visit Id: Visit Reason: Abdominal pain; ABDOMINAL [...] 17:22:14 01/12/2024 17:22:14 01/12/2024 17:22:14 AD[address]: [address] [facility] [id number] PHYS DOC NOTES: MEDICAL INFORMATION: Prescriptions Given: New Medications [facility]/pharmacy #[id number], [address] [place], [place] [id number], [phone] ondansetron (Zofran ODT 4 mg Tab-Dis) 1 [...] INFORMATION: Instructions: Full Liquid Diet; Nausea, Adult, Ayil-fs-Eufq; Abdominal Pain, Adult, Zpmr-ic-Gjrn Follow up: With: Address: When: Claudia Ellington MD [facility] [place] [address] In 3 days 01/15/2024 DIAGNOSIS: 1:Generalized abdominal pain; 2:Nausea; 3:Elevated lipase Normal [facility] ED Note-Nursingon 01-12-2024 ED Note-Nursing MARIE Morales at [facility] to discuss poc. Normal [facility] ED Patient Education Noteon 01-12-2024 ED [...] Water. Coffee and tea (caffeinated or decaffeinated). [place]. Liquid nutritional supplements. Soft drinks. Nondairy milks, such as almond, coconut, rice, or soy milk. Sweets and desserts Custard. Pudding. Flavored gelatin. Smooth ice cream (without nuts or candy pieces). Sherbet. Frozen ice pops. Slovenian ice. Pudding pops. Seasonings and condiments Salt and pepper. Spices. Vinegar. Ketchup. Yellow mustard. Smooth sauces, such as Hollandaise, cheese sauce, or white sauce. Soy sauce. Syrup. Honey. Jelly (without fruit pieces). Other foods [place] powder. Cream soups. Strained soups. The items [...] This infor (more content not included)... Normal [facility] ED Patient Education Note Gastroenterology Nausea, [...] ? Low-calorie sports drinks. ? Eat bland, ztgo-zd-maivsz foods in small amounts as you are able, such as: ? Bananas. ? Applesauce. ? Rice. ? Low-fat (lean) meats. ? Festus. ? Crackers. ? Avoid drinking fluids that have a lot of sugar or caffeine in them. This includes energy drinks, sports drinks, and soda. ? Avoid alcohol. ? Avoid spicy or fatty foods. General instructions ? Take ehsf-tvl-wptzkql and prescription medicines only as told by [...] cannot use soap and water, use hand piccoloist. ? Make sure that everyone in your [...] drink what your doctor tells you. Take bvzm-eki-lhimjpp and prescription medicines only as told by [...] provider. Document Revised: 01/24/2022 Document Reviewed: 01/24/2022 [employer] Patient Education ? 2022 [employer]. Abdominal Pain, Adult Many things can cause belly (abdominal) pain. Most times, belly pain is not dangerous. Many cases of belly pain can be watched and treated at home. Sometimes, though, belly pain is serious. Your doctor will try to find the cause of your belly pain. Follow these instructions at home: Medicines ? Take qjue-usi-neltazg and prescription medicines only as told by [...] doctor if: (more content not included)... Normal [facility] ED Patient Summaryon 024 ED Patient Summary (Inserted Image. Nida ble to display) [place] [id number] Patient Discharge Instructions Person Information Name: ROSE MARY SCHNEIDER Age: 18 Years Arrival Date: 01/12/2024 14:42:50 Discharge Diagnosis: 1:Generalized abdominal pain; 2:Nausea; 3:Elevated lipase Primary Care Physician: Claudia Ellington MD Provider Information Primary Provider: Radha Whipple DO Advanced Inclusion Intern:Liss Schroeder PA-C The exam and treatment you received in the Emergency Department were for an urgent problem and are not intended as complete care. It is important that you follow up with a doctor, nurse practitioner, or physician?s automobile mechanic assistant for ongoing care. If your symptoms [...] Instructions: With: Address: When: Claudia Ellington MD [address] [place], [place] [address] In 3 days 01/15/2024 In the event that this physician does not participate in your insurance network, please consult with your insurance company to find a nearby participating provider. Patient Education Materials: Full Liquid Diet; Nausea, Adult, Uamx-mu-Ppra; Abdominal Pain, Adult, Ztzj-vk-Ifxu A MESSAGE TO ALL PATIENTS REGARDING OPIOIDS PRESCRIPTION OPIOIDS: WHAT YOU NEED TO KNOW Prescription opioids can be used to help relieve sekzxsbv-xg-bauutb pain and are often prescribed following a [...] care professiona (more content not included)... Normal [facility] HEMATOLOGYOrdered By: SYSTEM SYSTEM on 01-12-2024 [...] Lipase [Catalytic activity/Vol] 158 U/L High 13-58 [facility] Comment on above: Performed By: #### 2 [id number] #### [facility] [address] [place] [address] Prescriptions/Work Noteson 0 01-12-2024 Prescriptions/Work Notes [id number]#[id number] Normal [facility] SEROLOGYOrdered By: Alisha Smart on 01-12-2024 HCG.beta subunit (U) [Moles/Vol] Negative Normal [facility] Man Sero U BetaHcg Qualon 01-12-2024 HCG.beta subunit (U) [Moles/Vol] Negative Normal [facility] Comment on above: Performed By: #### 2 [id number] #### [facility] [address] [place] [address] UA with Cult Rflxon 01-12-20 24 Bilirubin Ql (U) Negative Normal Negative [facility] Comment on above: Performed By: #### 4 [id number] #### [facility] [address] [place] [address] Clarity (U) Clear Normal Clear [facility] Comment on above: Performed By: #### 4 [id number] #### [facility] [address] [place] [address] Color (U) Light-Yellow Normal Yellow [facility] Comment on above: Result Comment: Micr oscopic readings are only performed on those samples that meet specific criteria set forth by [facility]. Performed By: #### 4 [id number] #### [facility] [address] [place] [address] Epithelial cells.squamous Auto (Urine sed) [#/Area] 3-4 Invalid Interpretation Code [facility] Comment on above: Performed By: #### 4 [id number] #### [facility] [address] [place] [address] Glucose Ql (U) Negative Normal Negative [facility] Comment on above: Performed By: #### 4 [id number] #### [facility] [address] [place] [address] Hemoglobin Auto test strip (U) [Mass/Vol] 2+ mg/dL Abnormal Negative [facility] Comment on above: Performed By: #### 4 [id number] #### [facility] [address] [place] [address] Ketones Auto test strip Ql (U) Negative Normal Negative [facility] Comment on above: Performed By: #### 4 [id number] #### [facility] [address] [place] [address] Leukocyte esterase Auto test strip Ql (U) Negative Normal Negative [facility] Comment on above: Performed By: #### 4 [id number] #### [facility] [address] [place] [address] Mucus Auto Ql (U) Trace Normal Negative [facility] Comment on above: Performed By: #### 4 [id number] #### [facility] [address] [place] [address] Nitrite Auto test strip Ql (U) Negative Normal Negative [facility] Comment on above: Performed By: #### 4 [id number] #### [facility] [address] [place] [address] pH (U) 6.5 [pH] Invalid Interpretation Code 5.0-9.0 [facility] Comment on above: Performed By: #### 4 [id number] #### [facility] [address] [place] [address] Protein Ql (U) Negative Normal Negative [facility] Comment on above: Performed By: #### 4 [id number] #### [facility] [address] [place] [address] RBC Ql (U) 0-3 Normal 0-3 [facility] Comment on above: Performed By: #### 4 [id number] #### [facility] [address] [place] [address] Specific gravity (U) [Rel density] 1.021 Invalid Interpretation Code 1.005-1.030 [facility] Comment on above: Performed By: #### 4 [id number] #### [facility] [address] [place] [address] Urobilinogen (U) [Mass/Vol] Negative Normal Negative [facility] Comment on above: Performed By: #### 4 [id number] #### [facility] [address] [place] [address] WBC Auto (Urine sed) [#/Area] 0-5 Normal 0-5 [facility] Comment on above: Performed By: #### 4 [id number] #### [facility] [address] [place] [address] Type of Urine collection method Random Urine Normal [facility] Comment on above: Performed By: #### 4 [id number] #### [facility] [address] [place] [id number] URINALYSISOrdered By: SYSTEM SYSTEM on 01-12-2024 Bilirubin Ql (U) Negative Normal Negativemg/ dL [facility] UA Auto SS Clarity (U) Clear (01/12/24 4:20 PM) Normal Clear [facility] UA Auto SS Color (U) Light-Yellow 1 (01/12/24 4:20 PM) Normal Yellow [facility] UA Auto SS Comment on above: Interpretive Data: M icroscopic readings are only performed on those samples that meet specific criteria set forth by [facility]. Epithelial cells.squamous Auto (Urine sed) [...] strip Ql (U) Negative Normal Negativemg/ dL [facility] UA Auto SS pH (U) 6.5 *NA* (01/12/24 4:20 PM) Invalid Interpretation Code 5.0 - 9.0 [facility] UA Auto SS Protein Ql (U) Negative Normal Negativemg/ dL [facility] UA Auto SS RBC Ql (U) 0-3 graded/HPF Normal 0-3graded/H PF [facility] UA Auto SS Specific gravity (U) [Rel density] 1.021 *NA* (01/12/24 4:20 PM) Invalid Interpretation Code 1.005 - 1.030 [facility] UA Auto SS Urobilinogen (U) [Mass/Vol] Negative Normal Negativemg/ dL [facility] UA Auto SS WBC Auto (Urine sed) [#/Area] 0-5 graded/HPF Normal 0-5graded/H PF [facility] UA Auto SS URINALYSISOrdered By: Aicha Schroeder on 01-12-2024 UA Spec Desc Random Urine (01/12/24 4:20 PM) Normal [facility] UA Auto SS Work Phone: eGFRon 01-12-2024 eGFR 128 mL/min/1.73 m2 Normal >=59 [facility] Comment on above: Order Comment: Order added by Discern Expert. Performed By: #### 1 [id number] #### [facility] [address] [place] [address] EEGon 05-23-2023 EEG This is a long-term continuous video electroencephalogram monitor performed on an 17-year-old female using standard 10/20 lead placement and a Spongecell-Cinpost system. All data were obtained digitally and [...] stimulation. Melecio Rubio M.D. ca Dictated: 05/15/2023 [id number] Typed: 05/15/[address] [facility] Comment on above: Result Comment: Elec tronically Signed By: Ramiro MARCANO, Melecio\.br\Date and Time Signed: 05/23/23 08:20 EDT EEG This is a continuati on of the previous 24-hour recording. This is a continuous video electroencephalogram performed on an 17-year-old female using standard 10/20 lead placement and a Nihon-Cinpost system. All data were available for reformatting [...] required. Melecio Rubio M.D. ca Dictated: 05/15/2023 [id number] Typed: 05/15/[address] [facility] Comment on above: Result Comment: Elec [...] 42.81 While BMI may be coded from windows systems administrator or nursing documentation, the weight-related diagnosis must [...] H please code as morbid obesity Normal [facility] Discharge Instructionson Discharge Instructions [id number] Normal [facility] Inpatient Clinical Summaryon 05-13-2023 Inpatient Clinical Summary [address] [address] Clinical Summary Person Information: Name: ROSE MARY SCHNEIDER Age: 17 Years : 2005 Sex: Female PCP: Claudia Ellington MD Marital Status: Single Phone: [phone] Race: White Ethnicity: Non- or Language: Djiboutian Visit Id: Visit Reason: R56.9 Unspecified convulsions Speciality: Acuity: Enc Type: Inpatient Med Service: Neurology Clinic Arrival: 05/11/2023 07:26:33 Discharge: Dispo Type: Address: [address] [place] [address] DR BERTHA Todd [facility] [id number] Provider Notes: Diagnosis: 1:Seizures; 2:History of gastroesophageal [...] Follow up: With: Address: When: Joann Zamorano [address] [address] Business (1) Comments: Call for hospital followup appointment 2-3 weeks With: Address: When: Claudia Ellington [facility] [place] [id number] Business (1) Comments: Call for followup appointment Patient Education Information: Seizure, Adult Keppra Normal [facility] Inpatient Patient Summaryon 05-13-2023 Inpatient Patient [...] Pending Diagnostic Test Results None Pharmacy Information [facility] Discharge Instructions NO DRIVING until cleared by neurology New Follow Up Appointments after Discharge Follow Up with Joann Zamorano When: Comments: Call for hospital followup appointment 2-3 weeks Where: [facility] [place] [address] [place] [address]- Business (1) Follow Up with Claudia Ellington When: Comments: Call for followup appointment Where: [facility] [place] [address]- Business (1) Medications What How Much When Instructions Next Dose Changed levetiracetam (Keppra 500 mg Tab) 1 Tablets By Mouth 2 times a day Pickup at [facility]/pharmacy #[id number] 05/13 9pm Unchanged APAP/ butalbital/ caffeine (APAP/ [...] (Protonix 40 mg tablet) Resume Pharmacy Information [facility]/pharmacy #[id number]: [address] [place], [place] [id number] [phone] Test Results CBC BMP WBC: 5.6 E9/L [...] ? Metabolic (more content not included)... Normal [facility] Inpatient Patient Summary [place] [address] Patient Discharge Instructions PERSON INFORMATION Name: ROSE [...] MACK [place], [address] [place] [address] Business (1) Comments: Call for hospital followup appointment 2-3 weeks With: Address: When: Claudia Ellington [address] [facility] [place] [address] Business (1) [...] [id number], [address] [place], [place] [id number], [phone] START: levetiracetam (Keppra 500 mg Tab) 1 [...] (melatonin-pyridoxine 3 mg-10 (more content not included)... [facility] Interdisciplinary Note - Binu e Manageron 05-13-2023 Interdisciplinary Note - Roll Over Loader CRM entered the room to discuss dc planning. Pt is sleeping. Neuro following. ANt dc TBD. CRM to follow. [facility] Comment on above: Result Comment: Elec karlaally Signed By: Peyton Mccarty\Date and Time Signed: 05/13/23 09:22 EDT Monitor Recordon 05-13-2023 Monitor Record [id number]#1.00TIFF [facility] Monitor Record [id number]#[id number] Normal [facility] Progress Note-Physicianon Progress Note-Physician Basic Information [...] sensation in all 4 extremities. Cerebellar exam: Ejtoej-cv-lxob reveals no ataxia. Gait is normal. [4] [3] Lab Results Glucose Cap: 84 mg/dL (05/12/23 21:54:00) POC Device SN: [id number] (05/12/23 21:54:00) POC User ID: [id number] (05/12/23 21:54:00) POC Username: NERY ALCALA (05/12/23 [...] PRN ceti (more content not included)... Normal [facility] Comment on above: Result Comment: Elec [...] 05:50:00) Lymph Auto: 41.3 % (05/12/23 05:50:00) [place] Auto: 8.8 % (05/12/23 05:50:00) Eos Auto: 3.1 % (05/12/23 05:50:00) Basophil Auto: 0.4 % (05/12/23 05:50:00) Neutro Absolute: 2.6 E9/L (05/12/23 05:50:00) Lymph Absolute: 2.3 E9/L (05/12/23 05:50:00) [place] Absolute: 0.5 E9/L (05/12/23 05:50:00) Eos Absolute: [...] (05/12/23 05:50:0 (more content not included)... Normal [facility] Comment on above: Result Comment: Elec tronically Signed By: Alicia Sidhu\.br\Date and Time Signed: 05/12/23 15:34 EDT\.br\Electronically Co-Signed By: ADELINE MARCANO, Akosua\.br\Date and Time Co-Signed: 05/13/23 07:06 EDT Auto Diffon 05-12-2023 Basophils/100 WBC (Bld) 0.4 % Normal 0.0-2.0 [facility] Comment on above: Order Comment: Order Added by Discern Expert. Performed By: #### 2 [id number], [id number] #### [facility] [address] [place] [address] Basophils/Leukocytes Auto (Bld) [Pure # fraction] 0.0 E9/L Normal 0.0-0.2 [facility] Comment on above: Order Comment: Order Added by Discern Expert. Performed By: #### 2 [id number], [id number] #### [facility] [address] [place] [address] Eosinophils/100 WBC (Bld) 3.1 % Normal 0.0-8.0 [facility] Comment on above: Order Comment: Order Added by Discern Expert. Performed By: #### 2 459915, [id number] #### [facility] [address] [place] [address] Eosinophils/Leukocytes Auto (Bld) [Pure # fraction] 0.2 E9/L Normal 0.0-0.5 [facility] Comment on above: Order Comment: Order Added by Discern Expert. Performed By: #### 2 [id number], [id number] #### [facility] [address] [place] [address] Lymphocytes/100 WBC (Bld) 41.3 % Normal 14.0-50.0 [facility] Comment on above: Order Comment: Order Added by Discern Expert. Performed By: #### 2 380415, [id number] #### [facility] [address] [place] [address] Lymphocytes/Leukocytes Auto (Bld) [Pure # fraction] 2.3 E9/L Normal 1.0-4.0 [facility] Comment on above: Order Comment: Order Added by Discern Expert. Performed By: #### 2 734560, 0004955 #### [facility] [address] [place] [address] Monocytes/100 WBC (Bld) 8.8 % Normal 4.0-14.0 [facility] Comment on above: Order Comment: Order Added by Discern Expert. Performed By: #### 2 470267, [id number] #### [facility] [address] [place] [address] Monocytes/Leukocytes Auto (Bld) [Pure # fraction] 0.5 E9/L Normal 0.2-1.0 [facility] Comment on above: Order Comment: Order Added by Discern Expert. Performed By: #### 2 405996, [id number] #### [facility] [address] [place] [address] Neutrophils/100 WBC (Bld) 46.4 % Normal 36.0-75.0 [facility] Comment on above: Order Comment: Order Added by Discern Expert. Performed By: #### 2 394756, [id number] #### [facility] [address] [place] [address] Neutrophils/Leukocytes Auto (Bld) [Pure # fraction] 2.6 E9/L Normal 2.0-7.5 [facility] Comment on above: Order Comment: Order Added by Discern Expert. Performed By: #### 2 969694, [id number] #### [facility] [address] [place] [address] CBC w/ Auto Diffon 202 3 Erythrocyte distribution width (RBC) [Ratio] 13.8 % Normal 10.9-14.2 [facility] Comment on above: Performed By: #### 2 049461, [id number] #### [facility] [address] [place] [address] Hematocrit (Bld) [Volume fraction] 38.5 % Normal 34.0-46.0 [facility] Comment on above: Performed By: #### 2 258798, 1411887 #### [facility] [address] [place] [address] Hemoglobin (Bld) [Mass/Vol] 13.2 g/dL Normal 12.0-16.0 [facility] Comment on above: Performed By: #### 2 967198, 2406553 #### [facility] [address] [place] [address] MCH (RBC) [Entitic mass] 29.2 pg Normal 27.0-34.0 [facility] Comment on above: Performed By: #### 2 096608, 8027061 #### [facility] [address] [place] [address] MCHC (RBC) [Mass/Vol] 34.3 g/dL Normal 31.4-36.0 [facility] Comment on above: Performed By: #### 2 875956, 6928133 #### [facility] [address] [place] [address] MCV (RBC) [Entitic vol] 85.2 fL Normal 80.0-100.0 [facility] Comment on above: Performed By: #### 2 481492, 2670009 #### [facility] [address] [place] [address] Platelet mean volume (Bld) [Entitic vol] 8.2 fL Normal 6.4-10.8 [facility] Comment on above: Performed By: #### 2 975369, 3754147 #### [facility] [address] [place] [address] Platelets (Bld) [#/Vol] 332.0 E9/L Normal 150.0-500.0 [facility] Comment on above: Performed By: #### 2 689596, 3146414 #### [facility] [address] [place] [address] RBC (Bld) [#/Vol] 4.5 E12/L Normal 4.3-5.9 [facility] Comment on above: Performed By: #### 2 534470, 0831182 #### [facility] [address] [place] [address] WBC corrected for nucl RBC Auto (Bld) [#/Vol] 5.6 E9/L Normal 4.0-11.0 [facility] Comment on above: Performed By: #### 2 090798, 5085610 #### [facility] [address] [place] [address] CHEMISTRYOrdered By: Lab ROP User on 05-12-2023 Glucose [Mass/Vol] 84 mg/dL Normal 55 - 99 mg/dL [facility] [place] Subsection Comment on above: Result Comment: Drea kaur RN/ POC Device SN [id number] Invalid Interpretation Code [facility] Subsection POC Username NERY ALCALA Invalid Interpretation Code [facility] Subsection Sodium [Moles/Vol] [id number] mmol/L Invalid Interpretation Code [facility] [place] Subsection CHEMISTRYOrdered By: SYSTEM SYSTEM on [...] 95 mL/min/1.73 m2 Normal >=59mL/min/ 1.73 m2 [facility] Chem S Comment on above: Interpretive Data: [...] 05-12-2023 Albumin [Mass/Vol] 3.0 g/dL Low 3.3-5.0 [facility] Comment on above: Performed By: #### 2 891850 #### [facility] [address] [place] [address] Albumin/Globulin (S) [Mass conc ratio] 0.7 Low 1.1-2.2 [facility] Comment on above: Performed By: #### 2 303501 #### [facility] [address] [place] [address] ALP [Catalytic activity/Vol] 50 Int._Unit/L Normal 21-98 [facility] Comment on above: Performed By: #### 2 513209 #### [facility] [address] [place] [address] ALT No additional P-5'-P [Catalytic activity/Vol] 13 Int._Unit/L Normal 6-46 [facility] Comment on above: Performed By: #### 2 116442 #### [facility] [address] [place] [address] Anion gap [Moles/Vol] 8 mmol/L Normal 6-16 [facility] Comment on above: Performed By: #### 2 350252 #### [facility] [address] [place] [address] AST [Catalytic activity/Vol] 16 Int._Unit/L Normal 5-43 [facility] Comment on above: Performed By: #### 2 098237 #### [facility] [address] [place] [address] Bilirubin [Mass/Vol] 0.4 mg/dL Normal 0.0-1.1 [facility] Comment on above: Performed By: #### 2 547520 #### [facility] [address] [place] [address] Calcium [Mass/Vol] 9.0 mg/dL Normal 8.9-11.1 [facility] Comment on above: Performed By: #### 2 419581 #### [facility] [address] [place] [address] Chloride [Moles/Vol] 108 mmol/L Normal 101-111 [facility] Comment on above: Performed By: #### 2 365941 #### [facility] [address] [place] [address] CO2 [Moles/Vol] 24 mmol/L Normal 21-31 [facility] Comment on above: Performed By: #### 2 583977 #### [facility] [address] [place] [address] Creatinine [Mass/Vol] 0.9 mg/dL Normal 0.5-1.3 [facility] Comment on above: Performed By: #### 2 260617 #### [facility] [address] [place] [address] Globulin (S) [Mass/Vol] 4.4 g/dL High 1.4-4.0 [facility] Comment on above: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 [address] [place] [address] Urea nitrogen [Mass/Vol] 11 mg/dL Normal 5-21 [facility] Comment on above: Order Comment: per tejas Conwayfer wants us to wait till 0800 to draw labs [id number] 03/09/2023 06:41:32 EDT Performed By: #### 2 725146, 1090795 #### [facility] [address] [place] [address] Urea nitrogen/Creatinine [Mass ratio] 16 No Units Normal 10-20 [facility] Comment on above: Order Comment: per tejas Kauffman RN Alisha wants us to wait till 0800 to draw labs [id number] 03/09/2023 06:41:32 EDT Performed By: #### 2 658091, 9790257 #### [facility] [address] [place] [address] COAGULATIONOrdered By: Chepe Ragland on 03-09-2023 INR Coag (PPP) [Relative time] 1.0 {INR} Invalid Interpretation Code [facility] Auto Coag PT Coag (PPP) [Time] 10.6 s Normal 9.4 - 1 2.5 second(s) [facility] Auto Coag ECG Pediatricon 03-09-2023 ECG Pediatric The following ED Rev iew was created for ROSE MARY SCHNEIDER: SINUS TACHYCARDIA POSSIBLE LEFT ATRIAL ENLARGEMENT [-0.1mV P WAVE IN V1/V2] NONSPECIFIC T-WAVE ABNORMALITY ABNORMAL RHYTHM ECG Preliminary By: Romero MARCANO, Justice 03/07/2023 15:05:51 Cop Winder has Agreed this ED Review Normal [facility] Insurance Correspondence Off ice03-09-2023 Insurance Correspondence Office [id number]#1.00CD:1 27 Normal [facility] Interdisciplinary Note - Binu e Manageron 03-09-2023 Interdisciplinary Note - Roll Over Loader Pt is in bed sleeping. According to teoter, pt has not been having SI. Dr Reveles will assess for need of [place] slip and [facility]. Nursing will have to call [facility] if needed. Pending SW and Neurology. ANt dc TBD. CRM to follow. Normal [facility] Comment on above: Result Comment: Elec tronically Signed By: Peyton Mccarty.br\Date and Time Signed: 03/09/23 09:25 EDT Interdisciplinary Note - Mayra singon 03-09-2023 Interdisciplinary Note - Nursing 1405 spoke with [facility] hotline. they requested chart be faxed to them. 1420 chart and pink slip faxed to [facility]. 1436 original fax did not go through. refaxed at this time. 1500 fax did not go trough. re attempted. Normal [facility] Interdisciplinary Note - Soc ial Workeron 03-09-2023 Interdisciplinary Note - Bulk Clerk Consult received by regarding an intentional acetaminophen overdose / SI . Awaiting [facility] consult. SW will follow [facility]'s plan moving forward. Normal [facility] Monitor Recordon 03-09-2023 Monitor Record [id number]#1.00CD:1 27 Normal [facility] Monitor Record [id number]#1.00CD:1 27 Normal [facility] Monitor Record [id number]#1.00CD:1 27 Normal [facility] PTon 03-09-2023 INR Coag (PPP) [Relative time] 1.0 {INR} Invalid Interpretation Code [facility] Comment on above: Result Comment: INR results are specifically intended to assess patients stabilized on long-term Anticoagulation therapy suggested INR?s ?Less Intensive Anticoagulation? 2.0 ? 3.0 Conventional Range 3.0 ? 4.5 Performed By: #### 2 466091, 1637596 #### [facility] [address] [place] [address] PT Coag (PPP) [Time] 10.6 second(s) Normal 9.4-12.5 [facility] Comment on above: Result Comment: 15 [...] the same coagulation reagent and instrumentation as [facility]. Currently there are no coagulation studies available worldwide for children to 14 days, and no normal ranges. Performed By: #### 2 575653, 4646785 #### [facility] [address] [place] [address] Progress Note-Nurseon 2022 Progress Note-Nurse Dr. Eamon marie via [employer]. Patient has PT and CMP 8/7 at 0600. Physician notified of current lab orders and no further orders received at this time. Normal [facility] Progress Note-Nurse Patient is afebrile, VS as documented, and patient in no distress. She denies pain, gi upset, and distress. Safety maintained and supervision continued. Normal [facility] Progress Note-Physicianon Progress Note-Physician Subjective Doing [...] (E66.9: Obesi (more content not included)... Normal [facility] Comment on above: Result Comment: Elec tronically Signed By: Lawrence Reveles DO\.br\Date and Time Signed: 03/09/23 14:30 EDT eGFRon 03-09-2023 GFR/1.73 sq M.predicted among non-blacks MDRD (S/P/Bld) [Vol rate/Area] 128 mL/min/1.73 m2 Normal >=59 [facility] Comment on above: Order Comment: Order added by Discern Expert. Result Comment: Harness Inspector marleny kidney disease could be indicated at eGFR's of less than 60 mL/min/1.73m2. Kidney failure is indicated at less than 15 mL/min/1.73m2. Performed By: #### 2 831604, 0546201 #### [facility] [address] [place] [address] Acetamnphn Lvlon 03-08-2023 Acetaminophen [Mass/Vol] ug/mL Low 15-30 [facility] Comment on above: Performed By: #### 2 543359, 4220758 #### [facility] [address] [place] [address] Acetaminophen [Mass/Vol] 10 microgram/mL Low -30 [facility] Comment on above: Performed By: #### 2 756131, 8469393 #### [facility] [address] [place] [address] BMPon 03-08-2023 Anion gap [Moles/Vol] 13 mmol/L Normal 6-16 [facility] Comment on above: Performed By: #### 2 468085, 3274664, 8201021, 83466916, 48957721 ####[facility] [address] [place] [address] Calcium [Mass/Vol] 9.1 mg/dL Normal 8.9-11.1 [facility] Comment on above: Performed By: #### 2 545794, 6770063, 0237484, 12370865, 85989245 ####[facility] [address] [place] [address] Chloride [Moles/Vol] 105 mmol/L Normal 101-111 [facility] Comment on above: Performed By: #### 2 327801, 8212010, 9267097, 84165282, 69424095 ####[facility] [address] [place] [address] CO2 [Moles/Vol] 23 mmol/L Normal 21-31 [facility] Comment on above: Performed By: #### 2 646641, 6894439, 1778960, 51795107, 25952884 ####[facility] [address] [place] [address] Creatinine [Mass/Vol] 0.8 mg/dL Normal 0.5-1.3 [facility] Comment on above: Performed By: #### 2 737256, 5596154, 7824273, 40348593, 35002744 ####[facility] [address] [place] [address] Glucose [Mass/Vol] 103 mg/dL Normal 55-199 [facility] Comment on above: Result Comment: If t his glucose result represents a fasting glucose, interpretation should refer to the following reference range: 55-99 mg/dL Performed By: #### 2 782436, 1087816, 1936753, 35289055, 40669804 ####[facility] [address] [place] [address] Potassium [Moles/Vol] 3.3 mmol/L Low 3.5-5.3 [facility] Comment on above: Performed By: #### 2 145115, 3912863, 0096975, 66063395, 40801868 ####[facility] [address] [place] [address] Sodium [Moles/Vol] 138 mmol/L Normal 135-145 [facility] Comment on above: Performed By: #### 2 253956, 6312160, 5684464, 37592277, 51761375 ####[facility] [address] [place] [address] Urea nitrogen [Mass/Vol] 7 mg/dL Normal 5-21 [facility] Comment on above: Performed By: #### 2 698775, 5616461, 5596602, 35328927, 80947940 ####[facility] [address] [place] [address] Urea nitrogen/Creatinine [Mass ratio] 9 No Units Low 10-20 [facility] Comment on above: Performed By: #### 2 332534, 7185894, 0939066, 60327029, 39156011 ####[facility] [address] [place] [address] CHEMISTRYOrdered By: SYSTEM SYSTEM on 03-08-2023 Albumin [...] 32.2 s Normal 25.1 - 36.5 second(s) [facility] Auto Coag INR Coag (PPP) [Relative time] 1.1 {INR} Invalid Interpretation Code [facility] Auto Coag PT Coag (PPP) [Time] 12.1 s Normal 9.4 - 1 2.5 second(s) [facility] Auto Coag GetWell Education Videoon GetWell Education Video Avoiding Infections in the Hospital Yes Patient Normal [facility] Hep Func Panelon 03-08-2023 Bilirubin.indirect [Mass or moles/Vol] UTC Abnormal 0.1-0.9 [facility] Comment on above: Result Comment: Resu lt verified by Discern Rule. Performed result UTC (Unable to Calculate) was sent as an Alpha code due the inability to calculate a valid numeric value. Performed By: #### 2 512807 #### [facility] [address] [place] [address] Albumin [Mass/Vol] 3.0 g/dL Low 3.3-5.0 [facility] Comment on above: Performed By: #### 2 839437 #### [facility] [address] [place] [address] Albumin/Globulin (S) [Mass conc ratio] 0.7 Low 1.1-2.2 [facility] Comment on above: Performed By: #### 2 151127 #### [facility] [address] [place] [address] ALP [Catalytic activity/Vol] 46 Int._Unit/L Normal 21-98 [facility] Comment on above: Performed By: #### 2 137739 #### [facility] [address] [place] [address] ALT No additional P-5'-P [Catalytic activity/Vol] 14 Int._Unit/L Normal 6-46 [facility] Comment on above: Performed By: #### 2 105549 #### [facility] [address] [place] [address] AST [Catalytic activity/Vol] 17 Int._Unit/L Normal 5-43 [facility] Comment on above: Performed By: #### 2 264859 #### [facility] [address] [place] [address] Bilirubin [Mass/Vol] 0.3 mg/dL Normal 0.0-1.1 [facility] Comment on above: Performed By: #### 2 745209 #### [facility] [address] [place] [address] Globulin (S) [Mass/Vol] 4.2 g/dL High 1.4-4.0 [facility] Comment on above: Performed By: #### 2 522256 #### [facility] [address] [place] [address] Protein [Mass/Vol] 7.2 g/dL Normal 6.0-7.8 [facility] Comment on above: Performed By: #### 2 899227 #### [facility] [address] [place] [address] Bilirubin.direct [Mass/Vol] mg/dL Normal 0.1-0.4 [facility] Comment on above: Performed By: #### 2 061590 #### [facility] [address] [place] [address] Bilirubin.indirect [Mass or moles/Vol] UTC Abnormal 0.1-0.9 [facility] Comment on above: Result Comment: Resu lt verified by Discern Rule. Performed result UTC (Unable to Calculate) was sent as an Alpha code due the inability to calculate a valid numeric value. Performed By: #### 2 859767, 2691283, 8538009, 49561557, 90917790 ####[facility] [address] [place] [address] Albumin [Mass/Vol] 3.0 g/dL Low 3.3-5.0 [facility] Comment on above: Performed By: #### 2 463462, 5577270, 5469680, 77755261, 65309286 ####[facility] [address] [place] [address] Albumin/Globulin (S) [Mass conc ratio] 0.7 Low 1.1-2.2 [facility] Comment on above: Performed By: #### 2 466729, 7874045, 5488586, 30007156, 65858389 ####[facility] [address] [place] [address] ALP [Catalytic activity/Vol] 42 Int._Unit/L Normal 21-98 [facility] Comment on above: Performed By: #### 2 961062, 1317917, 0547327, 66276448, 82368336 ####[facility] [address] [place] [address] ALT No additional P-5'-P [Catalytic activity/Vol] 12 Int._Unit/L Normal 6-46 [facility] Comment on above: Performed By: #### 2 403365, 1451545, 1011490, 69402910, 27880676 ####[facility] [address] [place] [address] AST [Catalytic activity/Vol] 13 Int._Unit/L Normal 5-43 [facility] Comment on above: Performed By: #### 2 053314, 9384459, 4923245, 42920285, 08865628 ####[facility] [address] [place] [address] Bilirubin [Mass/Vol] 0.4 mg/dL Normal 0.0-1.1 [facility] Comment on above: Performed By: #### 2 412154, 2333072, 5768844, 77134967, 38773161 ####[facility] [address] [place] [address] Globulin (S) [Mass/Vol] 4.2 g/dL High 1.4-4.0 [facility] Comment on above: Performed By: #### 2 132716, 6085997, 5072776, 84466388, 56812267 ####[facility] [address] [place] [address] Protein [Mass/Vol] 7.2 g/dL Normal 6.0-7.8 [facility] Comment on above: Performed By: #### 2 487972, 5614090, 9073672, 97450655, 19318449 ####[facility] [address] [place] [address] Bilirubin.direct [Mass/Vol] mg/dL Normal 0.1-0.4 [facility] Comment on above: Performed By: #### 2 186084, 4460978, 1681372, 20389988, 09565432 ####[facility] [address] [place] [address] Bilirubin.indirect [Mass or moles/Vol] UTC Abnormal 0.1-0.9 [facility] Comment on above: Result Comment: Resu lt verified by Discern Rule. Performed result UTC (Unable to Calculate) was sent as an Alpha code due the inability to calculate a valid numeric value. Performed By: #### 2 953860, 8235938 #### [facility] [address] [place] [address] Albumin [Mass/Vol] 2.9 g/dL Low 3.3-5.0 [facility] Comment on above: Performed By: #### 2 538833, 3107641 #### [facility] [address] [place] [address] Albumin/Globulin (S) [Mass conc ratio] 0.7 Low 1.1-2.2 [facility] Comment on above: Performed By: #### 2 897279, 0258343 #### [facility] [address] [place] [address] ALP [Catalytic activity/Vol] 40 Int._Unit/L Normal 21-98 [facility] Comment on above: Performed By: #### 2 280308, 2220654 #### [facility] [address] [place] [address] ALT No additional P-5'-P [Catalytic activity/Vol] 11 Int._Unit/L Normal 6-46 [facility] Comment on above: Performed By: #### 2 908688, 7303484 #### [facility] [address] [place] [address] AST [Catalytic activity/Vol] 16 Int._Unit/L Normal 5-43 [facility] Comment on above: Performed By: #### 2 459490, 9061516 #### [facility] [address] [place] [address] Bilirubin [Mass/Vol] 0.3 mg/dL Normal 0.0-1.1 [facility] Comment on above: Performed By: #### 2 399764, 7250354 #### [facility] [address] [place] [address] Globulin (S) [Mass/Vol] 4.0 g/dL Normal 1.4-4.0 [facility] Comment on above: Performed By: #### 2 919896, 9040056 #### [facility] [address] [place] [address] Protein [Mass/Vol] 6.9 g/dL Normal 6.0-7.8 [facility] Comment on above: Performed By: #### 2 918881, 6775766 #### [facility] [address] [place] [address] Bilirubin.direct [Mass/Vol] mg/dL Normal 0.1-0.4 [facility] Comment on above: Performed By: #### 2 034287, 4982974 #### [facility] [address] [place] [address] Interdisciplinary Note - Binu e Manageron 03-08-2023 Interdisciplinary Note - Roll Over Loader CRM spoke with patient and mother in [...] has a sitter in the room. Normal [facility] Comment on above: Result Comment: Elec tronically Signed By: Don SHER, Antoinette\.br\Date and Time Signed: 03/08/23 12:53 EDT Monitor Recordon 03-08-2023 Monitor Record [id number]:1 27 Normal [facility] Monitor Record [id number]#1.00CD:1 27 Normal [facility] Monitor Record [id number]#1.00CD:1 27 Normal [facility] PT & PTTon 03-08-2023 aPTT Coag (PPP) [Time] 32.2 second(s) Normal 25.1-36.5 [facility] Comment on above: Result Comment: Para [...] the same coagulation reagent and instrumentation as [facility]. Currently there are no coagulation studies available worldwide for children to 14 days, and no normal ranges. Heparin therapeutic range (represented by Anti-Factor Xa activity of 0.2 - 0.4 U/mL) corresponds to PTT of 56.6 - 109.0 sec. Performed By: #### 2 697225, 0795601, 3714909, 84649256, 47021588 ####[facility] [address] [place] [address] INR Coag (PPP) [Relative time] 1.1 {INR} Invalid Interpretation Code [facility] Comment on above: Result Comment: INR results are specifically intended to assess patients stabilized on long-term Anticoagulation therapy suggested INR?s ?Less Intensive Anticoagulation? 2.0 ? 3.0 Conventional Range 3.0 ? 4.5 Performed By: #### 2 659145, 8332195, 4954884, 38070692, 56556004 ####[facility] [address] [place] [address] PT Coag (PPP) [Time] 12.1 second(s) Normal 9.4-12.5 [facility] Comment on above: Result Comment: 15 [...] the same coagulation reagent and instrumentation as [facility]. Currently there are no coagulation studies available worldwide for children to 14 days, and no normal ranges. Performed By: #### 2 256338, 9301489, 2738156, 56495264, 78368810 ####[facility] [address] [place] [address] Progress Note-Nurseon 2022 Progress Note-Nurse Patient assisted to BSC and voids a small amount of clear yellow urine. Patient also ate a 6 inch sub and tolerated it well. She denies GI upset and tolerated it well. Observation continued and safety maintained. Normal [facility] Progress Note-Nurse Report taken and bed [...] Seizure pads intact and safety maintained. Normal [facility] Progress Note-Nurse 1340: This RN contac [...] will remain on regular nursing floor. Normal [facility] Progress Note-Physicianon Progress Note-Physician Assessment/Plan 17-year-old [...] overdose with Tylenol/diphenhydramine.? Secondary to suicide ideation/attempt. 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 Acetaminophen level ekta to 40 but trended down to undetectable. Treating with IVF Thursday. LFTs within normal limit. Repeat LFTs and PT/INR in AM. Ordered: Basic Metabolic Panel Comprehensive Metabolic Panel Consult to Superintendent Sales eGFR Extra Lav Tube Hepatic Function Panel PT [facility] Care/Day Moderate 35 Minutes 52643 2. Suicidal ideation (R45.851: Suicidal ideations) Supportive care. 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 Mental health evaluation in a.m. once medically stable. Ordered: Consult to Superintendent Sales [facility] Care/Day Moderate 35 Minutes 89620 3. Antihistamines overdose (T45.0X1A: Poisoning by antiallergic and antiemetic drugs, accidental (unintentional), initial encounter) Treated with charcoal. Respiratory status and circulation currently stable. Treated with IV fluid. Bladder scan?so far not retaining urine. Ordered: [facility] Care/Day Moderate 35 Minutes 76339 4. Hypokalemia (E87.6: Hypokalemia) Secondary to gastrointestinal loss and IV fluid. We will replace orally. Ordered: potassium chloride, 40 mEq = 2 tab(s), Tab-ER, Oral, BID for 2 dose(s), Stop date 03/09/23 8:59:00 EDT, Routine, Start date 03/08/23 9:00:00 EDT, 03/08/23 8:36:00 EDT Comprehensive Metabolic Panel [facility] Care/Day Moderate 35 Minutes 58486 5. Depression (F32.A: Depression, unspecified) On fluoxetine. Ordered: [facility] Care/Day Moderate 35 Minutes 96996 6. Seizure (R56.9: Unspecified convulsions) No reported seizure. On Lamictal and Keppra. Ordered: lorazepam, 1 mg = 0.5 mL, Injection, IV Push, QID PRN Seizure, Routine, Start date 03/07/23 18:04:00 EDT 7. Obesity (E66.9: Obesity, unspecified) Recommend therapeutic lifestyle modification changes. 8. 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 Disposition: Pending mental health evaluation in AM. I discussed the diagnosis and plan of care with the patient at the bedside. Moderate level of MDM based on addressing above issues. This documentation was transcribed using voice recognition software. Several attempts were made to ensure accuracy. However inadvertent computerized direct service provider errors may be present. Jennifer Retana. Hospitalist. [...] -- charco (more content not included)... Normal [facility] Comment on above: Result Comment: Elec tronically Signed By: DEBBIE MARCANO, Zainafo\.br\Date and Time Signed: 03/08/23 08:38 EDT Reference Laboratory Testing Ordered By: Generated DomainUser on 03-08-2023 lamoTRIgine [Mass/Vol] microgram/mL Low 2.0-2 0.0mcg /mL [facility] SendOutsSS Comment on above: Result Comment: Dete ction Limit = 1.0 Performed at: [address] [id number] MD Jose Armando Feliz levETIRAcetam [Mass/Vol] 12.4 microgram/mL Invalid Interpretation Code 10.0-40.0mc g/mL [facility] Comment on above: Result Comment: Perf ormed at: [address] [id number] MD Jose Armando Feliz eGFRon 03-08-2023 GFR/1.73 sq M.predicted among non-blacks MDRD (S/P/Bld) [Vol rate/Area] 109 mL/min/1.73 m2 Normal >=59 [facility] Comment on above: Order Comment: Order added by Discern Expert. Result Comment: Harness Inspector marleny kidney disease could be indicated at eGFR's of less than 60 mL/min/1.73m2. Kidney failure is indicated at less than 15 mL/min/1.73m2. Performed By: #### 2 018133, 2685659, 1639599, 73626040, 82263531 ####[facility] [address] [place] [address] Acetamnphn Lvlon 03-07-2023 Acetaminophen [Mass/Vol] 40 microgram/mL Abnormal 15-30 [facility] Comment on above: Result Comment: Crit ical Result verified by repeat analysis\Critical Result S_ACTM:40.1 Called to ALLEN ZENG AT ER by SANIYA NEWBY And Read Back For Confirmation at: 03/07/2023 18:17:47 Performed By: #### 2 464807, 9852459 #### [facility] [address] [place] [address] Acetaminophen [Mass/Vol] 35 microgram/mL High 15-30 [facility] Comment on above: Performed By: #### 1 1448491, 4268643, 5113806, 7591068, 92533126, 5386672, 2167047, 8488674, 9942155 #### [facility] [address] [place] [address] Auto Diffon 03-07-2023 Basophils/100 WBC (Bld) 0.5 % Normal 0.0-2.0 [facility] Comment on above: Order Comment: Order Added by Discern Expert. Performed By: #### 1 6807364, 4835241, 3646435, 9522447, 20463073, 8104479, 4125016, 8522546, 4006719 ####[address] [place] [address] Basophils/Leukocytes Auto (Bld) [Pure # fraction] 0.0 E9/L Normal 0.0-0.2 [facility] Comment on above: Order Comment: Order Added by Discern Expert. Performed By: #### 1 8170527, 9936670, 8999483, 7364830, 21689856, 2568287, 5740126, 7588256, 6041004 ####[address] [place] [address] Eosinophils/100 WBC (Bld) 1.9 % Normal 0.0-8.0 [facility] Comment on above: Order Comment: Order Added by Discern Expert. Performed By: #### 1 4718956, 7984887, 1702244, 0426839, 71165190, 2015675, 3960689, 6937944, 2432525 ####[address] [place] [address] Eosinophils/Leukocytes Auto (Bld) [Pure # fraction] 0.1 E9/L Normal 0.0-0.5 [facility] Comment on above: Order Comment: Order Added by Discern Expert. Performed By: #### 1 0460374, 4840696, 6834087, 6116777, 02476278, 5681941, 3558015, 9944051, 0450326 ####[address] [address] Lymphocytes/100 WBC (Bld) 28.7 % Normal 14.0-50.0 [facility] Comment on above: Order Comment: Order Added by Discern Expert. Performed By: #### 1 9465541, 7172964, 0423541, 2329835, 27689284, 9203364, 6811314, 1768797, 9939921 ####[facility] [address] [place] [address] Lymphocytes/Leukocytes Auto (Bld) [Pure # fraction] 2.0 E9/L Normal 1.0-4.0 [facility] Comment on above: Order Comment: Order Added by Discern Expert. Performed By: #### 1 8883456, 6759005, 9351147, 6520065, 90234294, 6202085, 5159208, 6390597, 7621133 ####[facility] [address] [place] [address] Monocytes/100 WBC (Bld) 8.6 % Normal 4.0-14.0 [facility] Comment on above: Order Comment: Order Added by Discern Expert. Performed By: #### 1 5504916, 7435021, 3639020, 7201494, 52336590, 5109341, 4080237, 9044265, 8990489 ####[address] [address] Monocytes/Leukocytes Auto (Bld) [Pure # fraction] 0.6 E9/L Normal 0.2-1.0 [facility] Comment on above: Order Comment: Order Added by Discern Expert. Performed By: #### 1 0555875, 4362222, 7540280, 3841347, 94756131, 6255073, 1667849, 2333430, 3342723 ####[facility] [address] [place] [address] Neutrophils/100 WBC (Bld) 60.3 % Normal 36.0-75.0 [facility] Comment on above: Order Comment: Order Added by Samantha Expert. Performed By: #### 1 1149815, 9954613, 6995459, 8264240, 63084846, 7690308, 5909265, 7848710, 5058259 ####[facility] [address] [place] [address] Neutrophils/Leukocytes Auto (Bld) [Pure # fraction] 4.1 E9/L Normal 2.0-7.5 [facility] Comment on above: Order Comment: Order Added by Discern Expert. Performed By: #### 1 7508591, 3645552, 5264006, 7918349, 69173460, 0339294, 1319650, 9438546, 9477713 ####[facility] [address] [place] [address] B hCG Qualon 03-07-2023 Beta hCG Ql Negative Normal [facility] Comment on above: Performed By: #### 1 9518975, 9732557, 3934829, 8853362, 95596865, 8166553, 7152539, 4797100, 0557378 ####[facility] [address] [place] [address] BMPon 03-07-2023 Creatinine [Mass/Vol] 0.9 mg/dL Normal 0.5-1.3 [facility] Comment on above: Performed By: #### 1 1369520, 3117752, 5223549, 6418461, 72617647, 8391370, 1694636, 4817353, 1890030 ####[facility] [address] [place] [address] Urea nitrogen [Mass/Vol] 9 mg/dL Normal 5-21 [facility] Comment on above: Performed By: #### 1 5495092, 9882613, 5250000, 4708566, 88637505, 7634422, 3768259, 4174739, 8069320 ####[facility] [address] [place] [address] Urea nitrogen/Creatinine [Mass ratio] 10 No Units Normal 10-20 [facility] Comment on above: Performed By: #### 1 6739739, 1893018, 8813266, 4456562, 80818738, 6735304, 2591299, 6274306, 9000214 ####[facility] [address] [place] [address] Anion gap [Moles/Vol] 14 mmol/L Normal 6-16 [facility] Comment on above: Performed By: #### 1 3128744, 2494006, 0597972, 9900448, 11153506, 4339241, 0026648, 9396585, 4725039 ####[facility] [address] [place] [address] Calcium [Mass/Vol] 9.4 mg/dL Normal 8.9-11.1 [facility] Comment on above: Performed By: #### 1 5072246, 4380557, 4517071, 7961334, 33553952, 6007691, 7659276, 6754031, 7342839 ####[facility] [address] [place] [address] Chloride [Moles/Vol] 103 mmol/L Normal 101-111 [facility] Comment on above: Performed By: #### 1 5197989, 4646719, 6991223, 4956458, 72674850, 0124753, 6914555, 4664751, 8538376 ####[facility] [address] [place] [address] CO2 [Moles/Vol] 24 mmol/L Normal 21-31 [facility] Comment on above: Performed By: #### 1 9562206, 2537442, 0637498, 8165229, 97117923, 7503065, 7708837, 5872793, 1528670 ####[facility] [address] [place] [address] Glucose [Mass/Vol] 95 mg/dL Normal 55-199 [facility] Comment on above: Result Comment: If t his glucose result represents a fasting glucose, interpretation should refer to the following reference range: 55-99 mg/dL Performed By: #### 1 9520963, 8754149, 6373987, 6579480, 44937298, 4499732, 1365241, 2391471, 7941726 ####[facility] [address] [place] [address] Potassium [Moles/Vol] 3.6 mmol/L Normal 3.5-5.3 [facility] Comment on above: Performed By: #### 1 5957054, 5714693, 0897192, 2590787, 78163133, 7333560, 9333076, 3724429, 6753377 ####[facility] [address] [place] [address] Sodium [Moles/Vol] 137 mmol/L Normal 135-145 [facility] Comment on above: Performed By: #### 1 6513717, 5048644, 4341979, 2694963, 54113607, 4969625, 7942693, 5114390, 3846557 ####[facility] [address] [place] [address] CBC w/ Auto Diffon Erythrocyte distribution width (RBC) [Ratio] 14.0 % Normal 10.9-14.2 [facility] Comment on above: Performed By: #### 1 7362006, 2994263, 7484970, 5468736, 46001094, 5971139, 6853256, 4804964, 9329094 ####[address] [place] [address] Hematocrit (Bld) [Volume fraction] 37.9 % Normal 34.0-46.0 [facility] Comment on above: Performed By: #### 1 6963029, 8131825, 0178545, 2230888, 84894758, 4282808, 3312621, 8821298, 4348143 ####[facility] [address] [place] [address] Hemoglobin (Bld) [Mass/Vol] 12.6 g/dL Normal 12.0-16.0 [facility] Comment on above: Performed By: #### 1 0557419, 7107231, 2340212, 0610304, 58904980, 7133237, 5683094, 4740894, 1619369 ####[facility] [address] [place] [address] MCH (RBC) [Entitic mass] 28.0 pg Normal 27.0-34.0 [facility] Comment on above: Performed By: #### 1 3986713, 6340460, 9818891, 7412257, 22172491, 3992490, 2931086, 2730212, 8248301 ####[facility] [address] [place] [address] MCHC (RBC) [Mass/Vol] 33.3 g/dL Normal 31.4-36.0 [facility] Comment on above: Performed By: #### 1 3353674, 2706197, 2738434, 6782479, 29748195, 4924013, 8115714, 4614336, 0135500 ####[address] [place] [address] MCV (RBC) [Entitic vol] 84.0 fL Normal 80.0-100.0 [facility] Comment on above: Performed By: #### 1 9915467, 9739986, 1593283, 4391821, 87086133, 0023278, 4041472, 7728183, 1020960 ####[facility] [address] [place] [address] Platelet mean volume (Bld) [Entitic vol] 7.9 fL Normal 6.4-10.8 [facility] Comment on above: Performed By: #### 1 3008800, 7388493, 4834582, 8534568, 16846329, 2315434, 1217644, 2015917, 8721486 ####[address] [address] Platelets (Bld) [#/Vol] 442.0 E9/L Normal 150.0-500.0 [facility] Comment on above: Performed By: #### 1 0590867, 9615027, 0362074, 6459685, 00641745, 8420185, 1630262, 7531596, 0140808 ####[address] [place] [address] RBC (Bld) [#/Vol] 4.5 E12/L Normal 4.3-5.9 [facility] Comment on above: Performed By: #### 1 6474061, 2872056, 3037534, 0168523, 33444265, 3794846, 4056362, 6911138, 5821782 ####[facility] [address] [place] [address] WBC corrected for nucl RBC Auto (Bld) [#/Vol] 6.8 E9/L Normal 4.0-11.0 [facility] Comment on above: Performed By: #### 1 1703758, 5897973, 1984409, 4150399, 09963398, 3549748, 5180210, 1527953, 7541970 ####[facility] [address] [place] [address] CHEMISTRYOrdered By: Debby Cleveland on 03-07-2023 Acetaminophen [...] 95 mL/min/1.73 m2 Normal >=59mL/min/ 1.73 m2 [facility] Chem S Glucose [Mass/Vol] 95 mg/dL Normal [...] Remisol Consent for Treatmenton Consent for Treatment [id number]:12 7 Normal [facility] ED Clinical Summaryon 2022 ED Clinical Summary (Inserted Image. Nida ble to display) [address] [address] ED Clinical Summary Person Information Name: ROSE MARY SCHNEIDER [facility] Age: 17 Years : 2005 Sex: Female Language: Djiboutian PCP: Claudia Ellington MD Marital Status: Single Phone: [phone] Visit Id: Visit Reason: Suicidal ideation; Intentional ingestion - overdose; SUICIDAL IDEATION Speciality: Acuity: 1 Enc Type: Observation Med Service: Emergency Arrival: 03/07/2023 14:06:45 Discharge: LOS: 000 04:36 Checkin: 03/07/2023 14:06:45 Checkout: 03/07/2023 18:42:28 Dispo Type: Admitted as IP to this [facility] EVENTS: Event Name Event Status [...] 03/07/2023 18:42:28 03/07/2023 18:42:28 03/07/2023 18:42:28 ADDRESS: [address] [place] [address] [address] [place] [id number] [facility] DOC NOTES: MEDICAL INFORMATION: Prescriptions Given: [...] 7:On deep vein thrombosis (DVT) prophylaxis Normal [facility] ED Note-Physicianon 03-07-20 ED Note-Physician Basic [...] Oral Susp 240 mL, 50 gm, Oral [id number] [F] 175 mL + acetylSoln-IV [F] 49256 mg, IV Piggyback Dextrose 5% in Water [...] Seizure Procedure/ (more content not included)... Normal [facility] Comment on above: Result Comment: Elec tronically Signed By: Justice Browne MD\.br\Date and Time Signed: 03/07/23 17:43 EDT ED Patient Education Noteon 03-07-2023 ED Patient Education Note Normal [facility] ED Patient Summaryon 023 ED Patient Summary (Inserted Image. Nida ble to display) [place] [address] Patient Discharge Instructions Person Information Name: ROSE MARY SCHNEIDER Age: 17 Years Arrival Date: 03/07/2023 14:06:45 Discharge Diagnosis: 1:Intentional acetaminophen overdose; 2:Suicidal ideation; 3:Antihistamines overdose; 4:Depression; 5:Seizure; 6:Obesity; 7:On deep vein thrombosis (DVT) prophylaxis Primary Care Physician: Claudia Ellington MD Provider Information Primary Provider: Justice Browne MD Advanced Inclusion Intern:None The exam and treatment you received in the Emergency Department were for an urgent problem and are not intended as complete care. It is important that you follow up with a doctor, nurse practitioner, or physician?s automobile mechanic assistant for ongoing care. If your symptoms [...] opioids can be used to help relieve aktxsbeo-el-vxsrzp pain and are often prescribed following a [...] be struggling with addiction, tell your health assurance services manager health care and ask for guidance or call [facility] National Helpline at 9-713-831-VBTM. v Source: [place] Department of Health and Human (more content not included)... Normal [facility] Ethanolon 03-07-2023 Ethanol [Mass/Vol] mg/dL Normal <=7 [facility] Comment on above: Performed By: #### 2 114058 #### [facility] [address] [place] [address] HEMATOLOGYOrdered By: SYSTEM SYSTEM on 03-07-2023 Basophils/100 [...] 6.8 E9/L Normal 4.0 - 11.0 E9/L [facility] HemeAutoSS Hep Func Panelon 03-07-2023 Albumin [Mass/Vol] 3.2 g/dL Low 3.3-5.0 [facility] Comment on above: Performed By: #### 2 051888, 3409001 #### [facility] [address] [place] [address] Albumin/Globulin (S) [Mass conc ratio] 0.7 Low 1.1-2.2 [facility] Comment on above: Performed By: #### 2 712925, 5210615 #### [facility] [address] [place] [address] ALP [Catalytic activity/Vol] 45 Int._Unit/L Normal 21-98 [facility] Comment on above: Performed By: #### 2 455380, 2952190 #### [facility] [address] [place] [address] ALT No additional P-5'-P [Catalytic activity/Vol] 12 Int._Unit/L Normal 6-46 [facility] Comment on above: Performed By: #### 2 691571, 8023988 #### [facility] [address] [place] [address] AST [Catalytic activity/Vol] 16 Int._Unit/L Normal 5-43 [facility] Comment on above: Performed By: #### 2 128337, 7252728 #### [facility] [address] [place] [address] Bilirubin [Mass/Vol] 0.2 mg/dL Normal 0.0-1.1 [facility] Comment on above: Performed By: #### 2 211147, 9791036 #### [facility] [address] [place] [address] Bilirubin.indirect [Mass or moles/Vol] UTC Abnormal 0.1-0.9 [facility] Comment on above: Result Comment: Resu lt verified by Discern Rule. Performed result UTC (Unable to Calculate) was sent as an Alpha code due the inability to calculate a valid numeric value. Performed By: #### 2 882828, 6363941 #### [facility] [address] [place] [address] Globulin (S) [Mass/Vol] 4.6 g/dL High 1.4-4.0 [facility] Comment on above: Performed By: #### 2 189733, 4033273 #### [facility] [address] [place] [address] Protein [Mass/Vol] 7.8 g/dL Normal 6.0-7.8 [facility] Comment on above: Performed By: #### 2 898657, 2287304 #### [facility] [address] [place] [address] Bilirubin.direct [Mass/Vol] mg/dL Normal 0.1-0.4 [facility] Comment on above: Performed By: #### 2 037691, 5097989 #### [facility] [address] [place] [address] Bilirubin.indirect [Mass or moles/Vol] UTC Abnormal 0.1-0.9 [facility] Comment on above: Result Comment: Resu lt verified by Discern Rule. Performed result UTC (Unable to Calculate) was sent as an Alpha code due the inability to calculate a valid numeric value. Performed By: #### 1 6112857, 9501458, 4372423, 7084384, 89628512, 6716105, 6379739, 1781396, 5463646 ####[facility] [address] [place] [id number] Albumin [Mass/Vol] 3.1 g/dL Low 3.3-5.0 [facility] Comment on above: Performed By: #### 1 [id number], 4714430, 2354029, 6948409, 00243562, 1779049, 3626864, 0758209, 6684571 ####[facility] [address] [place] [address] Albumin/Globulin (S) [Mass conc ratio] 0.7 Low 1.1-2.2 [facility] Comment on above: Performed By: #### 1 [id number], 0800538, 7806122, 8444308, 69772719, 9255541, 1263130, 4247413, 1702391 ####[facility] [address] [place] [address] ALP [Catalytic activity/Vol] 48 Int._Unit/L Normal 21-98 [facility] Comment on above: Performed By: #### 1 3936295, 1849734, 0819879, 7659670, 97049656, 5091623, 9931774, 1822153, 1234830 ####[address] [place] [address] ALT No additional P-5'-P [Catalytic activity/Vol] 11 Int._Unit/L Normal 6-46 [facility] Comment on above: Performed By: #### 1 3287833, 6424086, 3602351, 9077041, 14312250, 3514023, 7459326, 8380336, 4264938 ####[address] [place] [address] AST [Catalytic activity/Vol] 16 Int._Unit/L Normal 5-43 [facility] Comment on above: Performed By: #### 1 8722010, 7516535, 2935984, 4243808, 65356231, 3220541, 1524865, 3361429, 2558040 ####[facility] [address] [place] [address] Bilirubin [Mass/Vol] 0.5 mg/dL Normal 0.0-1.1 [facility] Comment on above: Performed By: #### 1 7084610, 1157862, 4240335, 6620548, 51201634, 6858162, 9180200, 9693227, 9089414 ####[facility] [address] [place] [address] Globulin (S) [Mass/Vol] 4.4 g/dL High 1.4-4.0 [facility] Comment on above: Performed By: #### 1 4255875, 1940094, 7123250, 3088336, 19139472, 9434027, 0168029, 9990456, 7503762 ####[facility] [address] [place] [address] Protein [Mass/Vol] 7.5 g/dL Normal 6.0-7.8 [facility] Comment on above: Performed By: #### 1 5413447, 1890721, 3426603, 7563940, 98374007, 4458524, 6057187, 0114784, 0606016 ####[facility] [address] [place] [address] Bilirubin.direct [Mass/Vol] mg/dL Normal 0.1-0.4 [facility] Comment on above: Performed By: #### 1 1233978, 2452479, 4115768, 7441941, 68281250, 0458571, 1967777, 9587028, 7755933 ####[facility] [address] [place] [address] Lipase Levelon 03-07-2023 Lipase [Catalytic activity/Vol] 24 U/L Normal 13-58 [facility] Comment on above: Performed By: #### 1 7038385, 1642249, 2542544, 0347546, 65583068, 3011579, 5822213, 9580404, 7406621 #### [facility] [address] [place] [address] Monitor Recordon 03-07-2023 Monitor Record [id number]#1.00CD:1 27 Normal [facility] Monitor Record [id number]#1.00CD:1 27 Normal [facility] Monitor Record [id number]#1.00CD:1 27 Normal [facility] Pre-Arrival Noteon 3 Pre-Arrival Note Pre-Arrival Summary Name: , Current Date: 03/07/2023 14:11:15 EDT Gender: Date of : Age: 17 Pre-Arrival Type: EMS ETA: 03/07/2023 14:33:00 EDT Primary Care Physician: Presenting Problem: overdose tylenol PM Pre-Arrival User: Julianne Sanford RN Referring Source: Location: [place] Completion Date/Time: 03/07/2023 14:03:00 [facility] Emergency Department Pre-Hospital Report Form ____ Vital Signs: Pre-Hospital Report: Treatment in Route: Response to Treatment: Misc. Issues: Normal [facility] Progress Note-Nurseon 2022 Progress Note-Nurse Poison Control aj d and spoke with Chiquis who verbalized [address] Browne aware Normal [facility] SEROLOGYOrdered By: Kizzy Newby on 03-07-2023 Beta hCG Ql Negative (03/07/23 2:43 PM) Normal [facility] [place] Sero Salicylateon 03-07-2023 Salicylates [Mass/Vol] mg/dL Low 6-29 [facility] Comment on above: Performed By: #### 1 [id number], 0384547, 5943299, 8214916, 12246217, 7364325, 9944785, 2305846, 5742099 #### [facility] [address] [place] [address] U Drug Screenon 03-07-2023 Amphetamines Screen method >1000 ng/mL Ql (U) Negative Normal Negative [facility] Comment on above: Result Comment: Nega tive Cutoff: <1000 ng/mL Performed By: #### 2 045557 #### [facility] [address] [place] [address] Barbiturates Screen Ql (U) Negative Normal Negative [facility] Comment on above: Result Comment: Nega tive Cutoff: <200 ng/mL Performed By: #### 2 525357 #### [facility] [address] [place] [address] Benzodiazepines Ql (U) Negative Normal Negative [facility] Comment on above: Result Comment: Nega tive Cutoff: <200 ng/mL Performed By: #### 2 934387 #### [facility] [address] [place] [address] Cocaine Ql (U) Negative Normal Negative [facility] Comment on above: Result Comment: Nega tive Cutoff: <300 ng/mL Performed By: #### 2 179194 #### [facility] [address] [place] [address] Opiates Screen Ql (U) Negative Normal Negative [facility] Comment on above: Result Comment: Nega tive Cutoff: <300 ng/mL Performed By: #### 2 887672 #### [facility] [address] [place] [address] Phencyclidine Screen method >25 ng/mL Ql (U) Negative Normal Negative [facility] Comment on above: Result Comment: Nega tive Cutoff: <25 ng/mL These drug screen results are to be used for medical (i.e., treatment) purposes only. Unconfirmed drug screening results must not be used for non-medical purposes (e.g., employment testing, legal testing). Performed By: #### 2 615729 #### [facility] [address] [place] [address] Tetrahydrocannabinol Screen method >50 ng/mL Ql (U) Negative Normal Negative [facility] Comment on above: Result Comment: Nega tive Cutoff: <50 ng/mL Performed By: #### 2 894018 #### [facility] [address] [place] [address] XR Chest Single Viewon 03-07 XR Chest [...] mGy = na DAP = na Normal [facility] eGFRon 03-07-2023 GFR/1.73 sq M.predicted among non-blacks MDRD (S/P/Bld) [Vol rate/Area] 95 mL/min/1.73 m2 Normal >=59 [facility] Comment on above: Order Comment: Order added by Discern Expert. Result Comment: Harness Inspector marleny kidney disease could be indicated at eGFR's of less than 60 mL/min/1.73m2. Kidney failure is indicated at less than 15 mL/min/1.73m2. Performed By: #### 1 [id number], 7241729, 7449009, 8899072, 69562269, 6856836, 4640618, 9927400, 0009621 ####[facility] [address] [place] [address] B hCG Qualon 02-27-2023 Beta hCG Ql Negative Normal [facility] Comment on above: Performed By: #### 2 575419, 1248416 #### [facility] [address] [place] [address] Consent for Treatmenton 02-01 Consent for Treatment [id number]#1.00CD:12 7 Normal [facility] Physician Orderon 02-27-2023 Physician Order [id number]#1.00CD:1 27 Normal [facility] CHEMISTRYOrdered By: SYSTEM SYSTEM on 11-13-2022 [...] hCG Ql Negative (11/13/22 2:56 PM) Normal [facility] URINALYSISOrdered By: Marilyn Rivas on [...] PM) Normal Negative [facility] UA Auto SS [place].plasma/[place] .RBC (Bld) [Mass ratio] 0-3 /HPF Normal [...] [facility] UA Auto SS Urobilinogen Qn (U) 0.9843458 {Ed'U}/dL Normal 0.0 - 1.0 EU/dL [facility] Auto SS WBC Auto Ql (U) Trace *ABN* (11/13/22 2:29 PM) Invalid Interpretation Code Negative [facility] UA Auto SS WBC LM.HPF (Urine sed) [#/Area] 0-5 /HPF Normal 0-5/HPF [facility] UA Auto SS CBC AUTO DIFFon 11-05-2022 BASO # 0.0 103/ul Normal 0.0-0.[address] [facility] Comment on above: Performed By: #### C BC #### [facility] [address] [address] [address] Tara Jackson Basophils/100 WBC (Bld) 0.5 % Normal 0.2-2.0 [facility] Comment on above: Performed By: #### C BC #### [facility] [address] [address] [address] Tara Jackson EO # 0.3 103/ul Normal 0.0-0.[address] [facility] Comment on above: Performed By: #### C BC #### [facility] [address] [address] [address] Tara Jackson Eosinophils/100 WBC (Bld) 4.9 % Normal 0.9-7.[address] [facility] Comment on above: Performed By: #### C BC #### [facility] [address] [place] [address] Dr. Tara Jackson Erythrocyte distribution width (RBC) [Ratio] 12.8 % Normal 11.0-15.0 [facility] Comment on above: Performed By: #### C BC #### [facility] [address] [place] [address] Dr. Tara Jackson Hematocrit (Bld) [Volume fraction] 35.8 % Critically low 36.0-48.0 [facility] Comment on above: Performed By: #### C BC #### [facility] [address] [place] [address] Dr. Tara Jackson Hemoglobin (Bld) [Mass/Vol] 11.8 g/dL Critically low 12.0-16.[address] [facility] Comment on above: Performed By: #### C BC #### [facility] [address] [place] [address] Dr. Tara Jakcson IG # 0.01 10e3/ul Normal 0.00-0.[address] [facility] Comment on above: Performed By: #### C BC #### [facility] [address] [address] [address] Tara Jackson IG % 0.2 % Normal 0.0-0.[address] [facility] Comment on above: Performed By: #### C BC #### [facility] [address] [place] [address] Dr. Tara Jackson LYMPH # 1.7 103/ul Normal 1.2-3.[address] [facility] Comment on above: Performed By: #### C BC #### [facility] [address] [place] [address] Dr. Taar Jackson Lymphocytes/100 WBC (Bld) 30.2 % Normal 20.5-60.0 [facility] Comment on above: Performed By: #### C BC #### [facility] [address] [place] [address] Dr. Tara Jackson MANUAL DIFF REQ NO Normal [facility] Comment on above: Performed By: #### C BC #### [facility] [address] [place] [address] Dr. Tara Jackson MCH (RBC) [Entitic mass] 27.6 pg Normal 26.7-34.0 [facility] Comment on above: Performed By: #### C BC #### [facility] [address] [place] [address] Dr. Tara Jackson MCHC (RBC) [Mass/Vol] 33.0 g/dL Normal 29.9-35.[address] [facility] Comment on above: Performed By: #### C BC #### [facility] [address] [place] [address] Dr. Tara Jackson MCV (RBC) [Entitic vol] 83.8 fL Normal 79.1-95.[address] [facility] Comment on above: Performed By: #### C BC #### [facility] [address] [place] [address] Dr. Tara Jackson MONO # 0.5 103/ul Normal 0.3-0.[address] [facility] Comment on above: Performed By: #### C BC #### [facility] [address] [place] [address] Dr. Tara Jackson Monocytes/100 WBC (Bld) 7.9 % Normal 1.7-12.[address] [facility] Comment on above: Performed By: #### C BC #### [facility] [address] [place] [address] Dr. Tara Jackson NEUT # 3.2 103/ul Normal 1.4-6.5 [facility] Comment on above: Performed By: #### C BC #### [facility] [address] [place] [address] Dr. Tara Jackson Neutrophils/100 WBC (Bld) 56.3 % Normal 43.0-75.0 [facility] Comment on above: Performed By: #### C BC #### [facility] [address] [place] [address] Dr. Tara Jackson Platelet mean volume (Bld) [Entitic vol] 9.0 fL Critically low 9.5-13.5 [facility] Comment on above: Performed By: #### C BC #### [facility] [address] [place] [address] Dr. Tara Jackson PLT 373 103/ul Normal 150-450 [facility] Comment on above: Performed By: #### C BC #### [facility] [address] [place] [address] Dr. Tara Jackson RBC 4.27 106/ul Normal 3.40-5.30 [facility] Comment on above: Performed By: #### C BC #### [facility] [address] [place] [address] Dr. Tara Jackson WBC 5.7 103/ul Normal 4.0-11.0 [facility] Comment on above: Performed By: #### C BC #### [facility] [address] [place] [address] Dr. 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 Admission #: [id number] Family : TEENA TRAN . Order #: [id number] CLICK HERE TO VIEW EXAM ECHOCARDIOGRAM REPORT [...] Tafoya M.D. on 11/06/2022 at 18:40 Normal [facility] PREG HCG QUALon 11-05-2022 , QUAL Negative Normal NEGATIVE [facility] Comment on above: Performed By: #### C BC #### [facility] [address] [place] [address] Dr. Tara Jackson PROF CHEM 8 (BAS METB)on Anion gap [Moles/Vol] 11.4 mmol/L Normal [facility] Comment on above: Performed By: #### C VDTBH #### [facility] [address] [address] [address] Tara Jackson Calcium [Mass/Vol] 8.5 mg/dL Normal 8.5-10.[address] [facility] Comment on above: Performed By: #### C VDTBH #### [facility] [address] [address] [address] Tara Jackson Chloride [Moles/Vol] 103 mmol/L Normal 98-[address] [facility] Comment on above: Performed By: #### C VDTBH #### [facility] [address] [place] [address] Dr. Tara Jackson CO2 [Moles/Vol] 27.5 mmol/L Normal 21.0-32.[address] [facility] Comment on above: Performed By: #### C VDTBH #### [facility] [address] [place] [address] Dr. Tara Jackson Creatinine [Mass/Vol] 0.67 mg/dL Normal 0.55-1.02 [facility] Comment on above: Performed By: #### C VDTBH #### [facility] [address] [place] [address] Dr. Tara Jackson Glucose [Mass/Vol] 93 mg/dL Normal 74-[address] [facility] Comment on above: Performed By: #### C VDTBH #### [facility] [address] [place] [address] Dr. Tara Jackson Potassium [Moles/Vol] 3.9 mmol/L Normal 3.5-5.[address] [facility] Comment on above: Performed By: #### C VDTBH #### [facility] [address] [place] [address] Dr. Tara Jackson Sodium [Moles/Vol] 138 mmol/L Normal 136-[address] [facility] Comment on above: Performed By: #### C VDTBH #### [facility] [address] [place] [address] Dr. Tara Jackson Urea nitrogen [Mass/Vol] 15.0 mg/dL Normal 6.4-19.[address] [facility] Comment on above: Performed By: #### C VDTBH #### [facility] [address] [place], [place] [address] Dr. Tara Jackson Urea nitrogen/Creatinine [Mass ratio] 22.4 mg/mg Normal [facility] Comment on above: Performed By: #### C VDTBH #### [facility] [address] [place], [place] [address] Dr. Taar Jackson CHEMISTRYOrdered By: SYSTEM SYSTEM on 10-11-2022 [...] 2.5 second(s) [facility] Auto Coag HEMATOLOGYOrdered By: Expo[employer] SYSTEM on 10-10-2022 Basophils/100 WBC (Bld) 0.5 [...] NEG [place] (10/10/22 10:09 PM) Normal [facility] S[place] Rapid COV Int POS [place] (10/10/22 10:09 PM) Normal [facility] SARS-CoV+SARS-CoV-2 (COVID-19) Ag IA.rapid Ql (Resp) Not Detected (10/10/22 10:09 PM) Normal Not Detected [facility] SEROLOGYOrdered By: Ruth orellana on 10-10-2022 HCG.beta subunit (U) [Moles/Vol] Negative Normal [facility] CHEMISTRYOrdered By: SYSTEM SYSTEM on [...] (Urine sed) [#/Area] 0-2 /HPF Normal 0-2/HPF [facility] UA Auto SS Glucose Test strip (U) [Mass/Vol] Negative (10/06/22 1:20 AM) Normal Negative [facility] Auto SS Hemoglobin Ql (U) Trace *ABN* (10/06/22 1:20 AM) Invalid Interpretation Code Negative [facility] UA Auto SS Ketones (U) [Mass/Vol] Negative (10/06/22 1:20 AM) Normal Negative [facility] UA Auto SS [place].plasma/[place] .RBC (Bld) [Mass ratio] 0-3 /HPF Normal 0-3/HPF [facility]A Auto SS Mucus Ql (Urine sed) 2+ (10/06/22 1:20 AM) Normal [facility] UA Auto SS Nitrite Ql (U) Negative (10/06/22 1:20 AM) Normal Negative [facility] UA Auto SS pH (U) 6.0 *NA* (10/06/22 1:20 AM) Invalid Interpretation Code 5.0 - 9.0 [facility] UA Auto SS Protein (U) [Mass/Vol] Negative (10/06/22 1:20 AM) Normal Negative [facility] UA Auto SS Specific gravity (U) [Rel density] >=1.030 *NA* (10/06/22 1:20 AM) Invalid Interpretation Code 1.005 - 1.030 [facility] UA Auto SS UA Spec Desc Clean Catch (10/06/22 1:20 AM) Normal [facility] UA Auto SS Urobilinogen Qn (U) 0.7327624 {Ed'U}/dL Normal 0.0 - 1.0 EU/dL [facility] UA Auto SS WBC Auto Ql (U) Negative (10/06/22 1:20 AM) Normal Negative [facility] UA Auto SS WBC LM.HPF (Urine sed) [#/Area] 0-5 /HPF Normal 0-5/HPF [facility] UA Auto SS CHEMISTRYOrdered By: Lab ROP User on 10-05-2022 Glucose [Mass/Vol] 131 mg/dL High 55 - 99 mg/dL [facility] POC Subsection Comment on above: Result Comment: Shanique percy Meter POC Device SN [id number] Invalid Interpretation Code [facility] POC Subsection POC User ID [id number] Invalid Interpretation Code [facility] POC Subsection POC Username CHRISTIANO GARCIA Invalid Interpretation Code [facility] POC Subsection LEVETIRACETAM, SERUM OR PLAS MAon 09-27-2022 Levetiracetam, S 13.6 ug/mL Normal 10.0-40.0 [facility] Comment on above: Performed By: #### C BC #### [facility] [address] [place] [address] Dr. Tara Jackson INSULINon 09-26-2022 Insulin 21.0 uIU/mL Normal 2.6-24.[address] [facility] Comment on above: Performed By: #### I NSULIN #### [facility] [address] [place] [address] Dr. Tara Jackson BILIRUBIN CONJUGATED (DIRECT )on 09-25-2022 BILI, CONJUGATED 0.1 mg/dL Normal 0.0-0.2 [facility] Comment on above: Performed By: #### C VDTBH #### [facility] [address] [place] [address] Dr. Tara Jackson CBC AUTO DIFFon 09-25-2022 BASO # 0.0 103/ul Normal 0.0-0.1 [facility] Comment on above: Performed By: #### C VDTBH #### [facility] [address] [place] [address] Dr. Tara Jackson Basophils/100 WBC (Bld) 0.6 % Normal 0.2-2.0 [facility] Comment on above: Performed By: #### C VDTBH #### [facility] [address] [place] [address] Dr. Tara Jackson EO # 0.3 103/ul Normal 0.0-0.[address] [facility] Comment on above: Performed By: #### C VDTBH #### [facility] [address] [place] [address] Dr. Tara Jackson Eosinophils/100 WBC (Bld) 4.5 % Normal 0.9-7.[address] [facility] Comment on above: Performed By: #### C VDTBH #### [facility] [address] [place] [address] Dr. Tara Jackson Erythrocyte distribution width (RBC) [Ratio] 12.2 % Normal 11.0-15.0 [facility] Comment on above: Performed By: #### C VDTBH #### [facility] [address] [place] [address] Dr. Tara Jackson Hematocrit (Bld) [Volume fraction] 38.4 % Normal 36.0-48.0 [facility] Comment on above: Performed By: #### C VDTBH #### [facility] [address] [place] [address] Dr. Tara Jackson Hemoglobin (Bld) [Mass/Vol] 13.0 g/dL Normal 12.0-16.0 [facility] Comment on above: Performed By: #### C VDTBH #### [facility] [address] [place] [address] Dr. Tara Jackson IG # 0.01 10e3/ul Normal 0.00-0.03 [facility] Comment on above: Performed By: #### C VDTBH #### [facility] [address] [place] [address] Dr. Tara Jackson IG % 0.2 % Normal 0.0-0.5 [facility] Comment on above: Performed By: #### C VDTBH #### [facility] [address] [place] [address] Dr. Tara Jackson LYMPH # 1.8 103/ul Normal 1.2-3.[address] [facility] Comment on above: Performed By: #### C VDTBH #### [facility] [address] [place] [address] Dr. Tara Jackson Lymphocytes/100 WBC (Bld) 28.7 % Normal 20.5-60.[address] [facility] Comment on above: Performed By: #### C VDTBH #### [facility] [address] [place] [address] Dr. Tara Jackson MANUAL DIFF REQ NO Normal [facility] Comment on above: Performed By: #### C VDTBH #### [facility] [address] [place] [address] Dr. Tara Jackson MCH (RBC) [Entitic mass] 28.6 pg Normal 26.7-34.[address] [facility] Comment on above: Performed By: #### C VDTBH #### [facility] [address] [place] [address] Dr. Tara Jackson MCHC (RBC) [Mass/Vol] 33.9 g/dL Normal 29.9-35.[address] [facility] Comment on above: Performed By: #### C VDTBH #### [facility] [address] [place] [address] Dr. Tara Jackson MCV (RBC) [Entitic vol] 84.4 fL Normal 79.1-95.[address] [facility] Comment on above: Performed By: #### C VDTBH #### [facility] [address] [place] [address] Dr. Tara Jackson MONO # 0.4 103/ul Normal 0.3-0.[address] [facility] Comment on above: Performed By: #### C VDTBH #### [facility] [address] [place] [address] Dr. Tara Jackson Monocytes/100 WBC (Bld) 6.5 % Normal 1.7-12.[address] [facility] Comment on above: Performed By: #### C VDTBH #### [facility] [address] [place] [address] Dr. Tara Jackson NEUT # 3.7 103/ul Normal 1.4-6.[address] [facility] Comment on above: Performed By: #### C VDTBH #### [facility] [address] [place] [address] Dr. Tara Jackson Neutrophils/100 WBC (Bld) 59.5 % Normal 43.0-75.[address] [facility] Comment on above: Performed By: #### C VDTBH #### [facility] [address] [place] [address] Dr. Tara Jackson Platelet mean volume (Bld) [Entitic vol] 9.0 fL Critically low 9.5-13.[address] [facility] Comment on above: Performed By: #### C VDTBH #### [facility] [address] [address] [address] Tara Jackson PLT 401 103/ul Normal 150-[address] [facility] Comment on above: Performed By: #### C VDTBH #### [facility] [address] [place] [address] Dr. Tara Jackson RBC 4.55 106/ul Normal 3.40-5.30 [facility] Comment on above: Performed By: #### C VDTBH #### [facility] [address] [place] [address] Dr. Tara Jackson WBC 6.2 103/ul Normal 4.0-11.0 [facility] Comment on above: Performed By: #### C VDTBH #### [facility] [address] [place] [address] Dr. Tara Jackson FREE THYROXINE INDEX T7on FTI 2.77 Normal 1.30-4.50 [facility] Comment on above: Performed By: #### C BC #### [facility] [address] [place] [address] Dr. Tara Jackson T3U 36.0 % Normal 30.0-39.0 [facility] Comment on above: Performed By: #### C BC #### [facility] [address] [place] [address] Dr. Tara Jackson T4 [Mass/Vol] 7.70 ug/dL Normal 5.40-10.60 [facility] Comment on above: Performed By: #### C BC #### [facility] [address] [place] [address] Dr. Tara Jackson GLYCOHEMOGLOBIN A1Con 2022 ADA RECOMMENDATION SEE BELOW Normal [facility] Comment on above: Result Comment: ADA RECOMMENDED LIMIT 4.0 - 6.0 ADA THERAPEUTIC TARGET < 7.0 ACTION SUGGESTED > 7.0 Performed By: #### A 1C #### [facility] [address] [place] [address] Dr. Tara Jackson Glucose [Mass/Vol] 103 mg/dL Normal [facility] Comment on above: Performed By: #### A 1C #### [facility] [address] [place] [address] Dr. Tara Jackson HbA1c (Bld) [Mass fraction] 5.2 % Normal 4.5-6.2 [facility] Comment on above: Performed By: #### A 1C #### [facility] [address] [place] [address] Dr. Tara Jackson IRONon 09-25-2022 Iron [Mass/Vol] 33.0 ug/dL Critically low 50.0-170.0 [facility] Comment on above: Performed By: #### C VDTB #### [facility] [address] [place] [address] Dr. Tara Jackson LIPID PROFILEon 09-25-2022 CHOL-HDL RATIO NORM SEE BELOW Normal [facility] Comment on above: Result Comment: 3.3 - 4.4 LOW RISK 4.4 - 7.1 AVERAGE RISK 7.1 - 11.0 MODERATE RISK >11.0 HIGH RISK Performed By: #### C BC #### [facility] [address] [place] [address] Dr. Tara Jackson Cholesterol [Mass/Vol] 189 mg/dL Normal 104-227 [facility] Comment on above: Performed By: #### C BC #### [facility] [address] [place] [address] Dr. Tara Jackson Cholesterol in HDL [Mass/Vol] 36 mg/dL Normal 29-69 [facility] Comment on above: Performed By: #### C BC #### [facility] [address] [place] [address] Dr. Tara Jackson Cholesterol in LDL [Mass/Vol] 128.4 mg/dL Normal 46.0-140.0 [facility] Comment on above: Performed By: #### C BC #### [facility] [address] [place] [address] Dr. Tara Jackson Cholesterol.total/Chol esterol in HDL [Mass ratio] 5.3 {ratio} Normal [facility] Comment on above: Performed By: #### C BC #### [facility] [address] [place] [address] Dr. Tara Jackson HDL NORMAL > or = 60 mg/dl - LO W CARDIOVASCULAR RISK <40 mg/dl - HIGH CARDIOVASCULAR RISK Normal [facility] Comment on above: Performed By: #### C BC #### [facility] [address] [address] [address] Tara Jackson LDL CALC NORMAL SEE BELOW Normal [facility] Comment on above: Result Comment: <100 mg/dl OPTIMAL 100 - 129 mg/dl NEAR OR ABOVE OPTIMAL 130 - 159 mg/dl BORDERLINE HIGH 160 - 189 mg/dl HIGH >190 mg/dl VERY HIGH Performed By: #### C BC #### [facility] [address] [address] [address] Tara Jackson Triglyceride [Mass/Vol] 123 mg/dL Normal 53-208 [facility] Comment on above: Performed By: #### C BC #### [facility] [address] [place] [address] Dr. Tara Jackson VLDL CALC 24.6 mg/dL Normal [facility] Comment on above: Performed By: #### C BC #### [facility] [address] [address] [address] Tara Jackson PROF 14(COMP METB)on 023 Albumin [Mass/Vol] 3.2 g/dL Critically low 3.4-5.0 [facility] Comment on above: Performed By: #### C BC #### [facility] [address] [place] [address] Dr. Tara Jackson Albumin/Globulin [Mass ratio] 0.7 {ratio} Normal [facility] Comment on above: Performed By: #### C BC #### [facility] [address] [place] [address] Dr. Tara Jackson ALP [Catalytic activity/Vol] 80 U/L Normal 65-260 [facility] Comment on above: Performed By: #### C BC #### [facility] [address] [address] [address] Tara Jackson ALT [Catalytic activity/Vol] 18 U/L Normal 14-59 [facility] Comment on above: Performed By: #### C BC #### [facility] [address] [place] [address] Dr. Tara Jackson Anion gap [Moles/Vol] 9.0 mmol/L Normal [facility] Comment on above: Performed By: #### C BC #### [facility] [address] [place] [address] Dr. Tara Jackson AST [Catalytic activity/Vol] 18 U/L Normal 15-[address] [facility] Comment on above: Performed By: #### C BC #### [facility] [address] [place] [address] Dr. Tara Jackson Bilirubin [Mass/Vol] 0.2 mg/dL Normal 0.2-1.[address] [facility] Comment on above: Performed By: #### C BC #### [facility] [address] [place] [address] Dr. Tara Jackson Calcium [Mass/Vol] 9.1 mg/dL Normal 8.5-10.[address] [facility] Comment on above: Performed By: #### C BC #### [facility] [address] [place] [address] Dr. Tara Jackson Chloride [Moles/Vol] 101 mmol/L Normal 98-[address] [facility] Comment on above: Performed By: #### C BC #### [facility] [address] [place] [address] Dr. Tara Jackson CO2 [Moles/Vol] 30.2 mmol/L Normal 21.0-32.[address] [facility] Comment on above: Performed By: #### C BC #### [facility] [address] [place] [address] Dr. Tara Jackson Creatinine [Mass/Vol] 0.80 mg/dL Normal 0.55-1.[address] [facility] Comment on above: Performed By: #### C BC #### [facility] [address] [place] [address] Dr. Tara Jackson Globulin (S) [Mass/Vol] 4.3 g/dL Normal [facility] Comment on above: Performed By: #### C BC #### [facility] [address] [place] [address] Dr. Tara Jackson Glucose [Mass/Vol] 101 mg/dL Normal 74-106 [facility] Comment on above: Performed By: #### C BC #### [facility] [address] [place] [address] Dr. Tara Jackson Potassium [Moles/Vol] 4.2 mmol/L Normal 3.5-5.1 [facility] Comment on above: Performed By: #### C BC #### [facility] [address] [address] [address] Tara Jackson Protein [Mass/Vol] 7.5 g/dL Normal 6.4-8.[address] [facility] Comment on above: Performed By: #### C BC #### [facility] [address] [place] [address] Dr. Tara Jackson Sodium [Moles/Vol] 136 mmol/L Normal 136-145 [facility] Comment on above: Performed By: #### C BC #### [facility] [address] [place] [address] Dr. Tara Jackson Urea nitrogen [Mass/Vol] 11.0 mg/dL Normal 6.4-19.[address] [facility] Comment on above: Performed By: #### C BC #### [facility] [address] [place] [address] Dr. Tara Jackson Urea nitrogen/Creatinine [Mass ratio] 13.8 mg/mg Normal [facility] Comment on above: Performed By: #### C BC #### [facility] [address] [place] [address] Dr. Tara Jackson TSHon 09-25-2022 TSH 5.240 uIU/mL Critically high 0.516-4.[address] [facility] Comment on above: Performed By: #### C BC #### [facility] [address] [place] [address] Dr. Tara Jackson [facility]19 [facility]on SARS-CoV-2 (COVID-19) RNA CHRISTIAN+probe Ql (Unsp spec) Not detected Normal NOT DETECTED [facility] Comment on above: Result Comment: This test is not yet approved or cleared by the [place] FDA. When there are no FDA-approved or cleared tests available, and other criteria are met, FDA can make tests available under an emergency access mechanism called an Emergency Use Authorization (EUA). The EUA for this test is supported by the [place] [employer] of Health and Human Service's (HHS's) declaration [...] SARS-CoV-2. Performed By: #### C VDTB #### [facility] [address] [place] [address] Dr. Tara Jackson INFLUENZA A AND B AGon 09[facility] Normal [facility] Comment on above: Result Comment: Nega tive for Flu A protein angiten. Infection due to Flu A cannot be ruled out. Flu A angiten in the sample may be below the detection limit of the test. Performed By: #### I NFLUAB #### [facility] [address] [place] [address] Dr. [facility] SEE BELOW Normal [facility] Comment on above: Result Comment: Nega tive for Flu B protein antigen. Infection due to Flu B cannot be ruled out. Flu B antigen in the sample may be below the detection limit of the test. Performed By: #### I NFLUAB #### [facility] [address] [place] [address] Dr. Tara Jackson INFLUENZA A AG Negative Normal NEGATIVE SEE COMMENT [facility] Comment on above: Performed By: #### I NFLUAB #### [facility] [address] [place] [address] Dr. Tara Jackson INFLUENZA B AG Negative Normal NEGATIVE SEE COMMENT [facility] Comment on above: Performed By: #### I NFLUAB #### [facility] [address] [place] [address] Dr. Tara Jackson Covid-19 PCR (CVDTB)on SARS-CoV-2 (COVID-19) RNA CHRISTIAN+probe Ql (Unsp spec) Not detected Normal NOT DETECTED [facility] Comment on above: Result Comment: When [...] for this test is supported by the [place] of Health and Human Service's declaration that [...] used). Performed By: #### C VDTBH #### [facility] [address] [place] [address] Dr. Tara Jackson INFLUENZA A AND B AGon 08-05 [facility] SEE BELOW Normal [facility] Comment on above: Result Comment: Nega tive for Flu A protein angiten. Infection due to Flu A cannot be ruled out. Flu A angiten in the sample may be below the detection limit of the test. Performed By: #### I NFLUAB #### [facility] [address] [place] [address] Dr. Tara Jackson INFLUBNEG SEE BELOW Normal [facility] Comment on above: Result Comment: Nega tive for Flu B protein antigen. Infection due to Flu B cannot be ruled out. Flu B antigen in the sample may be below the detection limit of the test. Performed By: #### I NFLUAB #### [facility] [address] [place] [address] Dr. Tara Jackson INFLUENZA A AG Negative Normal NEGATIVE SEE COMMENT [facility] Comment on above: Performed By: #### I NFLUAB #### [facility] [address] [address] [address] Tara Jackson INFLUENZA B AG Negative Normal NEGATIVE SEE COMMENT [facility] Comment on above: Performed By: #### I NFLUAB #### [facility] [address] [address] [address] Tara Jackson Albumin [Mass/volume] in Ser um or PlasmaOrdered By: Claudia Ellington on 07-31-2022 Albumin [Mass/Vol] 3.2 g/dL 3.2-5.5 [facility] Basophils Auto (Bld) [#/Vol] Ordered By: Claudia Ellington on 07-31-2022 Basophils (Bld) [#/Vol] 0.0 10*3/uL 0.0-0.1 [facility] Basophils/100 WBC Auto (Bld) Ordered By: Claudia Ellington on 07-31-2022 Basophils/100 WBC (Bld) 0.4 % . [facility] Cholesterol [Mass/volume] in Serum or PlasmaOrdered By: Claudia Ellington on 07-31-2022 Cholesterol [Mass/Vol] 264 mg/dL 140-200 [facility] Comment on above: Chol less than 200 m g/dl low riskChol 201-239 mg/dl borderline riskChol 240 mg/dl and greater high risk Cholesterol in LDL Calc [Mas s/Vol]Ordered By: Claudia Ellington on 07-31-2022 Cholesterol in LDL [Mass/Vol] 168 mg/dL 0-100 [facility] Comment on above: LDL ATP III CLASSIFI CATIONLDL less than 100 mg/dL OptimalLDL 100-129 mg/dL Near or above optimalLDL 130-159 mg/dL Borderline highLDL 160-189 mg/dL HighLDL greater than 189 mg/dL Very high Cholesterol in VLDL Calc [Ma ss/Vol]Ordered By: Claudia Ellington on 07-31-2022 Cholesterol in VLDL [Mass/Vol] 17 mg/dL [facility] Creatinine and Glomerular fi ltration rate.predicted panel (S/P/Bld)Ordered By: Claudia Ellington on 07-31-2022 Creatinine [Mass/Vol] 0.87 mg/dL 0.44-1.03 [facility] Eosinophils Auto (Bld) [#/Vo l]Ordered By: Claudia Ellington on 07-31-2022 Eosinophils (Bld) [#/Vol] 0.0 10*3/uL 0.0-0.7 [facility] Eosinophils/100 WBC Auto (Bl d)Ordered By: Claudia Ellington on 07-31-2022 Eosinophils/100 WBC (Bld) 0.5 % . [facility] Erythrocyte distribution wid th Auto (RBC) [Ratio]Ordered By: Claudia Ellington on 07-31-2022 Erythrocyte distribution width (RBC) [Ratio] 13.2 % 11.9-15.3 [facility] Estimated glomerular filtrat ion rate (GFR) non- AmericanOrdered By: Claudia Ellington on 07-31-2022 GFR/1.73 sq M.predicted among non-blacks MDRD (S/P/Bld) [Vol rate/Area] N/A [facility] Globulin Calc (S) [Mass/Vol] Ordered By: Claudia Ellington on 07-31-2022 Globulin (S) [Mass/Vol] 3.3 g/dL [facility] Glucose mean value [Mass/vol ume] in Blood Estimated from glycated hemoglobinOrdered By: Claudia Ellington on 07-31-2022 Average glucose Estimated from glycated hemoglobin (Bld) [Mass/Vol] 114 mg/dL [facility] Hematocrit Auto (Bld) [Volum e fraction]Ordered By: Claudia Ellington on 07-31-2022 Hematocrit (Bld) [Volume fraction] 38.5 % 36.0-46.0 [facility] Hemoglobin A1c percentageOrd ered By: Claudia Ellington on 07-31-2022 HbA1c (Bld) [Mass fraction] 5.6 % 4.3-5.6 [facility] Comment on above: Increased risk for d iabetes: 5.7 - 6.4diabetes: >6.4glycemic control for adults with diabetes: <7.0 Hemoglobin [Mass/volume] in BloodOrdered By: Claudia Ellington on 07-31-2022 Hemoglobin (Bld) [Mass/Vol] 12.7 g/dL 12.0-16.0 [facility] Iron [Mass/volume] in Serum or PlasmaOrdered By: Claudia Ellington on 07-31-2022 Iron [Mass/Vol] 74 ug/dL 40-150 [facility] Leukocytes [#/volume] correc gamaliel for nucleated erythrocytes in Blood by Automated counOrdered By: Claudia Ellington on 07-31-2022 WBC corrected for nucl RBC Auto (Bld) [#/Vol] 8.3 10*3/uL 4.5-13.5 [facility] Lymphocytes Auto (Bld) [#/Vo l]Ordered By: Claudia Ellington on 07-31-2022 Lymphocytes (Bld) [#/Vol] 2.3 10*3/uL 1.20-4.8 [facility] Lymphocytes/100 WBC Auto (Bl d)Ordered By: Claudia Ellington on 07-31-2022 Lymphocytes/100 WBC (Bld) 27.9 % . [facility] MCH Auto (RBC) [Entitic mass ]Ordered By: Claudia Ellington on 07-31-2022 MCH (RBC) [Entitic mass] 28.4 pg 25.0-35.0 [facility] MCHC Auto (RBC) [Mass/Vol]Or dered By: Claudia lElington on 07-31-2022 MCHC (RBC) [Mass/Vol] 32.9 g/dL 31.0-37.0 [facility] MCV Auto (RBC) [Entitic vol] Ordered By: Claudia Ellington on 07-31-2022 MCV (RBC) [Entitic vol] 86.6 fL 78-102 [facility] Monocytes Auto (Bld) [#/Vol] Ordered By: Claudia Ellington on 07-31-2022 Monocytes (Bld) [#/Vol] 0.4 10*3/uL 0.1-1.00 [facility] Monocytes/100 WBC Auto (Bld) Ordered By: Claudia Ellington on 07-31-2022 Monocytes/100 WBC (Bld) 5.0 % . [facility] Neutrophils Auto (Bld) [#/Vo l]Ordered By: Claudia Ellington on 07-31-2022 Neutrophils (Bld) [#/Vol] 5.5 10*3/uL 1.2-7.7 [facility] Neutrophils/100 WBC Auto (Bl d)Ordered By: Claudia Ellington on 07-31-2022 Neutrophils/100 WBC (Bld) 66.2 % . [facility] No Panel InformationOrdered By: Claudia Ellington on 07-31-2022 Estimated GFR () N/A [facility] Creatinine Clearance (Chem N/A [facility] Nucleated erythrocytes [Pres ence] in Blood by Automated countOrdered By: Claudia Ellington on 07-31-2022 Nucleated RBC Auto Ql (Bld) 0.1 /100{WBC} 0-0.5 [facility] Platelet mean volume Auto (B ld) [Entitic vol]Ordered By: Claudia Ellington on 07-31-2022 Platelet mean volume (Bld) [Entitic vol] 7.5 fL 6.3-10.7 [facility] Platelets Auto (Bld) [#/Vol] Ordered By: Claudia Ellington on 07-31-2022 Platelets (Bld) [#/Vol] 420 10*3/uL 150-450 [facility] Protein [Mass/volume] in Ser um or PlasmaOrdered By: Claudia Ellington on 07-31-2022 Protein [Mass/Vol] 6.5 g/dL 6.1-7.9 [facility] RBC Auto (Bld) [#/Vol]Ordere d By: Claudia Ellington on 07-31-2022 RBC (Bld) [#/Vol] 4.45 10*6/uL 4.10-5.10 [facility] Serum or plasma alanine lucas otransferase measurement without P-5'-P (enzymatic activiOrdered By: Claudia Ellington on 07-31-2022 ALT No additional P-5'-P [Catalytic activity/Vol] 12 U/L 10-60 [facility] Serum or plasma albumin/glob ulin mass ratioOrdered By: Claudia Ellington on 07-31-2022 Albumin/Globulin [Mass ratio] 1.0 {ratio} [facility] Serum or plasma alkaline rosmery sphatase measurement (enzymatic activity/volume)Ordered By: Claudia Ellington on 07-31-2022 ALP [Catalytic activity/Vol] 49 U/L 32-92 [facility] Serum or plasma anion gap de terminationOrdered By: Claudia Ellington on 07-31-2022 Anion gap [Moles/Vol] 11.2 mmol/L 6.0-15.0 [facility] Serum or plasma aspartate am inotransferase measurement (enzymatic activity/volume)Ordered By: Claudia Ellington on 07-31-2022 AST [Catalytic activity/Vol] 13 U/L 10-42 [facility] Serum or plasma calcium trish urement (mass/volume)Ordered By: Claudia Ellington on 07-31-2022 Calcium [Mass/Vol] 9.2 mg/dL 8.2-10.2 [facility] Serum or plasma chloride klarissa surement (moles/volume)Ordered By: Claudia Ellington on 07-31-2022 Chloride [Moles/Vol] 104 mmol/L 95-114 [facility] Serum or plasma glucose trish urement (mass/volume)Ordered By: Claudia Ellington on 07-31-2022 Glucose [Mass/Vol] 96 mg/dL 70-100 [facility] Comment on above: ADA recommended refe rence rangeRandom Glucose Reference Range is dependent on time and content of last meal. Glucose of more than 200 mg/dL in a nonstressed, ambulatory subject supports the diagnosis of Diabetes Mellitus. Serum or plasma high density lipoprotein (HDL) cholesterol measurementOrdered By: Claudia Ellington on 07-31-2022 Cholesterol in HDL [Mass/Vol] 78 mg/dL 35-85 [facility] Comment on above: HDL CHOL ATP-III CLA SSIFICATION Cardiovascular RiskHDL > or equal to 60 mg/dL LOWHDL < 40 mg/dL HIGH Serum or plasma potassium me asurement (moles/volume)Ordered By: Claudia Ellington on 07-31-2022 Potassium [Moles/Vol] 4.0 mmol/L 3.5-5.1 [facility] Serum or plasma sodium measu rement (moles/volume)Ordered By: Claudia Ellington on 07-31-2022 Sodium [Moles/Vol] 137 mmol/L 138-145 [facility] Serum or plasma total biliru bin measurement (mass/volume)Ordered By: Claudia Ellington on 07-31-2022 Bilirubin [Mass/Vol] 0.5 mg/dL 0.3-1.2 [facility] Serum or plasma total carbon dioxide measurement (moles/volume)Ordered By: Claudia Ellington on 07-31-2022 CO2 [Moles/Vol] 25.8 mmol/L 22.0-30.0 [facility] Serum or plasma total choles terol/high density lipoprotein (HDL) cholesterol mass ratOrdered By: Claudia Ellington on 07-31-2022 Cholesterol.total/Chol esterol in HDL [Mass ratio] 3.4 {ratio} <5.0 [facility] Serum or plasma urea nitroge n measurement (mass/volume)Ordered By: Claudia Ellington on 07-31-2022 Urea nitrogen [Mass/Vol] 18 mg/dL 9-23 [facility] TSH DL <= 0.005 mIU/L QnOrde red By: Claudia Ellington on 07-31-2022 TSH Qn 3.47 m[IU]/L 0.45-5.33 [facility] Thyroxine (T4) free [Mass/vo lume] in Serum or PlasmaOrdered By: Claudia Ellington on 07-31-2022 Free T4 [Mass/Vol] 1.03 ng/dL 0.61-1.12 [facility] Triglyceride [Mass/volume] i n Serum or PlasmaOrdered By: Claudia Ellington on 07-31-2022 Triglyceride [Mass/Vol] 89 mg/dL 35-149 [facility] Comment on above: TRIG ATP III CLASSIF ICATIONTRIG less than 150 mg/dL NormalTRIG 150-199 mg/dL Borderline highTRIG 200-500 mg/dL High TRIG greater than 500 mg/dL Very highStandard traceable to the Center for Disease Conrtrol and Prevention (CDC) test method. WBC Auto (Bld) [#/Vol]Ordere d By: Claudia Ellington on 07-31-2022 WBC (Bld) [#/Vol] 8.3 10*3/uL 4.5-13.5 [facility] Covid-19 PCR (CVDTBH)on 07-04 SARS-CoV-2 (COVID-19) RNA CHRISTIAN+probe Ql (Unsp spec) Not detected Normal NOT DETECTED [facility] Comment on above: Result Comment: When [...] for this test is supported by the [place] of Health and Human Service's declaration that [...] used). Performed By: #### C VDTBH #### [facility] [address] [place] [address] Dr. Tara Jackson INFLUENZA A AND B AGon 07-23 INFLUENZA A AG Negative Normal NEGATIVE SEE COMMENT [facility] Comment on above: Performed By: #### I NFLUAB #### [facility] [address] [place] [address] Dr. Tara Jackson INFLUENZA B AG Negative Normal NEGATIVE SEE COMMENT [facility] Comment on above: Performed By: #### I NFLUAB #### [facility] [address] [place] [address] Dr. Tara Jackson INTERNAL CONTROLS Within Normal Limits Normal Wi thin Normal Limits [facility] Comment on above: Performed By: #### I NFLUAB #### [facility] [address] [place] [address] Dr. Tara Jackson RSVon 07-23-2022 RSV AG Negative Normal NEGATIVE [facility] Comment on above: Performed By: #### R SV #### [facility] [address] [address] [address] Tara Jackson CHEMISTRYOrdered By: SYSTEM SYSTEM [...] 10 - 20 [facility] Remisol Covid-19 PCR ([facility])on SARS-CoV-2 (COVID-19) RNA CHRISTIAN+probe Ql (Unsp spec) Not detected Normal NOT DETECTED [facility] Comment on above: Result Comment: This test is not yet approved or cleared by the [place] FDA. When there are no FDA-approved or cleared tests available, and other criteria are met, FDA can make tests available under an emergency access mechanism called an Emergency Use Authorization (EUA). The EUA for this test is supported by the [place] of Health and Human Service's (HHS's) declaration [...] consistent with SARS-CoV-2. Performed By: #### C [facility] #### [facility] [address] [place] [address] Dr. Tara Jackson HEMATOLOGYOrdered By: SYSTEM SYSTEM [...] AGon 07-08 INFLUANE SEE BELOW Normal [facility] Comment on above: Result Comment: Nega tive for Flu A protein angiten. Infection due to Flu A cannot be ruled out. Flu A angiten in the sample may be below the detection limit of the test. Performed By: #### I NFLUAB #### [facility] [address] [place] [address] Dr. T[facility] SEE BELOW Normal [facility] Comment on above: Result Comment: Nega tive for Flu B protein antigen. Infection due to Flu B cannot be ruled out. Flu B antigen in the sample may be below the detection limit of the test. Performed By: #### I NFLUAB #### [facility] [address] [place] [address] Dr. Tara Jackson INFLUENZA A AG Negative Normal NEGATIVE SEE COMMENT [facility] Comment on above: Performed By: #### I NFLUAB #### [facility] [address] [place] [address] Dr. Tara Jackson INFLUENZA B AG Negative Normal NEGATIVE SEE COMMENT [facility] Comment on above: Performed By: #### I NFLUAB #### [facility] [address] [address] [address] Tara Jackson INTERNAL CONTROLS Within Normal Limits Normal Wi thin Normal Limits [facility] Comment on above: Performed By: #### I NFLUAB #### [facility] [address] [address] [address] Tara Jackson MICRO OTHER TESTSOrdered By: [...] PM) Normal Negative [facility] UA Auto SS [place].plasma/[place] .RBC (Bld) [Mass ratio] 0-3 /HPF Normal 0-3/HPF [facility] UA Auto SS Nitrite Ql (U) Negative (07/08/22 8:50 PM) Normal Negative [facility] UA Auto SS pH (U) 6.5 *NA* (07/08/22 8:50 PM) Invalid Interpretation Code 5.0 - 9.0 [facility] UA Auto SS Protein (U) [Mass/Vol] Negative (07/08/22 8:50 PM) Normal Negative [facility] [place] Auto SS Specific gravity (U) [Rel density] 1.015 *NA* (07/08/22 8:50 PM) Invalid Interpretation Code 1.005 - 1.030 [facility] UA Auto SS UA Spec Desc Clean Catch (07/08/22 8:50 PM) Normal [facility] UA Auto SS Urobilinogen Qn (U) 0.2342016 {Ed'U}/dL Normal 0.0 - 1.0 EU/dL [facility] Auto SS WBC Auto Ql (U) Negative (07/08/22 8:50 PM) Normal Negative [facility] UA Auto SS WBC LM.HPF (Urine sed) [#/Area] 0-5 /HPF Normal 0-5/HPF [facility] UA Auto SS CHEMISTRYOrdered By: SYSTEM SYSTEM [...] 100 mg/dL High 55 - 99 mg/dL [facility] POC Subsection Comment on above: Result Comment: Shanique percy Meter POC Device SN [id number] Invalid Interpretation Code [facility] POC Subsection POC User ID [id number] Invalid Interpretation Code [facility] POC Subsection POC Username CAL NOLASCO Invalid Interpretation Code [facility] POC Subsection HEMATOLOGYOrdered By: SYSTEM SYSTEM on [...] 35.7 g/dL Normal 32.0 - 36.0 gm/dL [facility] HemeAutoSS MCV (RBC) [Entitic vol] 82.4 fL Normal 78.0 - 95.0 fL [facility] HemeAutoSS Platelet mean volume (Bld) [Entitic vol] 7.1 fL Normal 6.0 - 9.5 fL [facility] HemeAutoSS Platelets (Bld) [#/Vol] 303.0 E9/L Normal 150.0 - 450.0 E9/L [facility] HemeAutoSS RBC (Bld) [#/Vol] 4.3 E12/L Normal 4.1 - 5.3 E12/L [facility] HemeAutoSS WBC corrected for nucl RBC Auto (Bld) [#/Vol] 11.5 E9/L High 4.0 - 10.5 E9/L [facility] HemeAutoSS INFLUENZA A AND B AGon 06-25 [facility] SEE BELOW Normal [facility] Comment on above: Result Comment: Nega tive for Flu A protein angiten. Infection due to Flu A cannot be ruled out. Flu A angiten in the sample may be below the detection limit of the test. Performed By: #### C VDTBH #### [facility] [address] [place] [address] Dr. Tara Jackson [facility] SEE BELOW Normal [facility] Comment on above: Result Comment: Nega tive for Flu B protein antigen. Infection due to Flu B cannot be ruled out. Flu B antigen in the sample may be below the detection limit of the test. Performed By: #### C VDTBH #### [facility] [address] [place] [address] Dr. Tara Jackson INFLUENZA A AG Negative Normal NEGATIVE SEE COMMENT [facility] Comment on above: Performed By: #### C VDTBH #### [facility] [address] [place] [address] Dr. Tara Jackson INFLUENZA B AG Negative Normal NEGATIVE SEE COMMENT [facility] Comment on above: Performed By: #### C VDTBH #### [facility] [address] [place] [address] Dr. Tara Jackson INTERNAL CONTROLS Within Normal Limits Normal Wi thin Normal Limits [facility] Comment on above: Performed By: #### C VDTBH #### [facility] [address] [place] [address] Dr. Tara Jackson Covid-19 PCR (CVDTB)on 06-03 SARS-CoV-2 (COVID-19) RNA CHRISTIAN+probe Ql (Unsp spec) Not detected Normal NOT DETECTED [facility] Comment on above: Result Comment: This test is not yet approved or cleared by the [place] FDA. When there are no FDA-approved or cleared tests available, and other criteria are met, FDA can make tests available under an emergency access mechanism called an Emergency Use Authorization (EUA). The EUA for this test is supported by the [place] [employer] of Health and Human Service's (HHS's) declaration [...] SARS-CoV-2. Performed By: #### I NFLUAB #### [facility] [address] [place] [address] Dr. Tara Jackson Covid-19 PCR (CVDTB)on 05-04 SARS-CoV-2 (COVID-19) RNA CHRISTIAN+probe Ql (Unsp spec) Not detected Normal NOT DETECTED [facility] Comment on above: Result Comment: This test is not yet approved or cleared by the [place] FDA. When there are no FDA-approved or cleared tests available, and other criteria are met, FDA can make tests available under an emergency access mechanism called an Emergency Use Authorization (EUA). The EUA for this test is supported by the [place] of Health and Human Service's (HHS's) declaration [...] SARS-CoV-2. Performed By: #### I NFLUAB #### [facility] [address] [place] [address] Dr. Tara Jackson AMYLASEon 04-26-2022 Amylase [Catalytic activity/Vol] 17 U/L Critically low 25-[address] [facility] Comment on above: Performed By: #### I NFLUAB #### [facility] [address] [place] [address] Dr. Tara Jackson CBC AUTO DIFFon 04-26-2022 BASO # 0.0 103/ul Normal 0.0-0.1 [facility] Comment on above: Performed By: #### C VDTBH #### [facility] [address] [place] [address] Dr. Tara Jackson Basophils/100 WBC (Bld) 0.7 % Normal 0.2-2.0 [facility] Comment on above: Performed By: #### C VDTBH #### [facility] [address] [place] [address] Dr. Tara Jackson EO # 0.3 103/ul Normal 0.0-0.7 [facility] Comment on above: Performed By: #### C VDTBH #### [facility] [address] [place] [address] Dr. Tara Jackson Eosinophils/100 WBC (Bld) 5.1 % Normal 0.9-7.0 [facility] Comment on above: Performed By: #### C VDTBH #### [facility] [address] [place] [address] Dr. Tara Jackson Erythrocyte distribution width (RBC) [Ratio] 13.5 % Normal 11.0-15.0 [facility] Comment on above: Performed By: #### C VDTBH #### [facility] [address] [place] [address] Dr. Tara Jackson Hematocrit (Bld) [Volume fraction] 37.9 % Normal 36.0-48.0 [facility] Comment on above: Performed By: #### C VDTBH #### [facility] [address] [place] [address] Dr. Tara Jackson Hemoglobin (Bld) [Mass/Vol] 12.4 g/dL Normal 12.0-16.0 [facility] Comment on above: Performed By: #### C VDTBH #### [facility] [address] [place] [address] Dr. Tara Jackson IG # 0.01 10e3/ul Normal 0.00-0.03 [facility] Comment on above: Performed By: #### C VDTBH #### [facility] [address] [place] [address] Dr. Tara Jackson IG % 0.2 % Normal 0.0-0.5 [facility] Comment on above: Performed By: #### C VDTBH #### [facility] [address] [place] [address] Dr. Tara Jackson LYMPH # 1.6 103/ul Normal 1.2-3.8 [facility] Comment on above: Performed By: #### C VDTBH #### [facility] [address] [place] [address] Dr. Tara Jackson Lymphocytes/100 WBC (Bld) 28.8 % Normal 20.5-60.0 [facility] Comment on above: Performed By: #### C VDTBH #### [facility] [address] [place] [address] Dr. Tara Jackson MANUAL DIFF REQ NO Normal [facility] Comment on above: Performed By: #### C VDTBH #### [facility] [address] [place] [address] Dr. Tara Jackson MCH (RBC) [Entitic mass] 28.1 pg Normal 26.7-34.0 [facility] Comment on above: Performed By: #### C VDTBH #### [facility] [address] [place] [address] Dr. Tara Jackson MCHC (RBC) [Mass/Vol] 32.7 g/dL Normal 29.9-35.[address] [facility] Comment on above: Performed By: #### C VDTBH #### [facility] [address] [place] [address] Dr. Tara Jackson MCV (RBC) [Entitic vol] 85.7 fL Normal 79.1-95.[address] [facility] Comment on above: Performed By: #### C VDTBH #### [facility] [address] [place] [address] Dr. Tara Jackson MONO # 0.3 103/ul Normal 0.3-0.[address] [facility] Comment on above: Performed By: #### C VDTBH #### [facility] [address] [place] [address] Dr. Tara Jackson Monocytes/100 WBC (Bld) 6.2 % Normal 1.7-12.[address] [facility] Comment on above: Performed By: #### C VDTBH #### [facility] [address] [place] [address] Dr. Tara Jackson NEUT # 3.2 103/ul Normal 1.4-6.[address] [facility] Comment on above: Performed By: #### C VDTBH #### [facility] [address] [place] [address] Dr. Tara Jackson Neutrophils/100 WBC (Bld) 59.0 % Normal 43.0-75.[address] [facility] Comment on above: Performed By: #### C VDTBH #### [facility] [address] [place] [address] Dr. Tara Jackson Platelet mean volume (Bld) [Entitic vol] 9.7 fL Normal 9.5-13.[address] [facility] Comment on above: Performed By: #### C VDTBH #### [facility] [address] [place] [address] Dr. Tara Jackson PLT 382 103/ul Normal 150-[address] [facility] Comment on above: Performed By: #### C VDTBH #### [facility] [address] [place] [address] Dr. Tara Jackson RBC 4.42 106/ul Normal 3.40-5.[address] [facility] Comment on above: Performed By: #### C VDTBH #### [facility] [address] [place] [address] Dr. Tara Jackson WBC 5.5 103/ul Normal 4.0-11.[address] [facility] Comment on above: Performed By: #### C VDTBH #### [facility] [address] [place] [address] Dr. Tara Jackson IRONon 04-26-2022 Iron [Mass/Vol] 55.0 ug/dL Normal 50.0-170.[address] [facility] Comment on above: Performed By: #### C VDTBH #### [facility] [address] [place] [address] Dr. Tara Jackson LIPASEon 04-26-2022 Lipase [Catalytic activity/Vol] 191.0 U/L Normal 73.0-393.0 [facility] Comment on above: Performed By: #### I NFLUAB #### [facility] [address] [place] [address] Dr. Tara Jackson PREG QUANT HCGon 04-26-2022 HCG QUANT <[address] [facility] Comment on above: Performed By: #### I NFLUAB #### [facility] [address] [place] [address] Dr. Tara Jackson HCG RANGE SEE BELOW Normal [facility] Comment on above: Result Comment: 5-50 0.2-1 WEEK 50-500 1-2 WEEKS 100-5,000 2-3 WEEKS 500-10,000 3-4 WEEKS 1,000-50,000 4-5 WEEKS 10,000-100,000 5-6 WEEKS 15,000-200,000 6-8 WEEKS 10,000-100,000 2-3 MONTHS Performed By: #### I NFLUAB #### [facility] [address] [place] [address] Dr. Tara Jackson PROF 14(COMP METB)on 022 Albumin [Mass/Vol] 3.0 g/dL Critically low 3.4-5.0 [facility] Comment on above: Performed By: #### I NFLUAB #### [facility] [address] [place] [address] Dr. Tara Jackson Albumin/Globulin [Mass ratio] 0.7 {ratio} Normal [facility] Comment on above: Performed By: #### I NFLUAB #### [facility] [address] [place] [address] Dr. Tara Jackson ALP [Catalytic activity/Vol] 58 U/L Critically low 65-260 [facility] Comment on above: Performed By: #### I NFLUAB #### [facility] [address] [place] [address] Dr. Tara Jackson ALT [Catalytic activity/Vol] 19 U/L Normal 14-59 [facility] Comment on above: Performed By: #### I NFLUAB #### [facility] [address] [place] [address] Dr. Tara Jackson Anion gap [Moles/Vol] 11.1 mmol/L Normal [facility] Comment on above: Performed By: #### I NFLUAB #### [facility] [address] [place] [address] Dr. Tara Jackson AST [Catalytic activity/Vol] 13 U/L Critically low 15-37 [facility] Comment on above: Performed By: #### I NFLUAB #### [facility] [address] [place] [address] Dr. Tara Jackson Bilirubin [Mass/Vol] 0.3 mg/dL Normal 0.2-1.0 [facility] Comment on above: Performed By: #### I NFLUAB #### [facility] [address] [place] [address] Dr. Tara Jackson Calcium [Mass/Vol] 8.7 mg/dL Normal 8.5-10.1 [facility] Comment on above: Performed By: #### I NFLUAB #### [facility] [address] [place] [address] Dr. Tara Jackson Chloride [Moles/Vol] 103 mmol/L Normal 98-107 [facility] Comment on above: Performed By: #### I NFLUAB #### [facility] [address] [address] [address] Tara Jackson CO2 [Moles/Vol] 25.0 mmol/L Normal 21.0-32.0 [facility] Comment on above: Performed By: #### I NFLUAB #### [facility] [address] [place] [address] Dr. Tara Jackson Creatinine [Mass/Vol] 0.88 mg/dL Normal 0.55-1.02 [facility] Comment on above: Performed By: #### I NFLUAB #### [facility] [address] [place] [address] Dr. Tara Jackson Globulin (S) [Mass/Vol] 4.6 g/dL Normal [facility] Comment on above: Performed By: #### I NFLUAB #### [facility] [address] [place] [address] Dr. Tara Jackson Glucose [Mass/Vol] 91 mg/dL Normal 74-106 [facility] Comment on above: Performed By: #### I NFLUAB #### [facility] [address] [place] [address] Dr. Tara Jackson Potassium [Moles/Vol] 4.1 mmol/L Normal 3.5-5.1 [facility] Comment on above: Performed By: #### I NFLUAB #### [facility] [address] [place] [address] Dr. Tara Jackson Protein [Mass/Vol] 7.6 g/dL Normal 6.4-8.2 [facility] Comment on above: Performed By: #### I NFLUAB #### [facility] [address] [place] [address] Dr. Tara Jackson Sodium [Moles/Vol] 135 mmol/L Critically low 136-145 [facility] Comment on above: Performed By: #### I NFLUAB #### [facility] [address] [place] [address] Dr. Tara Jackson Urea nitrogen [Mass/Vol] 9.0 mg/dL Normal 6.4-19.[address] [facility] Comment on above: Performed By: #### I NFLUAB #### [facility] [address] [address] [address] Tara Jackson Urea nitrogen/Creatinine [Mass ratio] 10.2 mg/mg Normal [facility] Comment on above: Performed By: #### I NFLUAB #### [facility] [id number] Tara Jcakson CHEMISTRYOrdered By: SYSTEM SYSTEM on 04-04-2022 Cholesterol [...] spec) Not detected Normal NOT DETECTED [facility] Comment on above: Result Comment: This test is not yet approved or cleared by the [place] FDA. When there are no FDA-approved or cleared tests available, and other criteria are met, FDA can make tests available under an emergency access mechanism called an Emergency Use Authorization (EUA). The EUA for this test is supported by the [place] of Health and Human Service's (HHS's) declaration [...] SARS-CoV-2. Performed By: #### I NFLUAB #### [facility] [address] [place], [place] [address] Dr. Tara Jackson Covid-19 PCR (CVDTBH)on SARS-CoV-2 (COVID-19) RNA CHRISTIAN+probe Ql (Unsp spec) Not detected Normal NOT DETECTED [facility] Comment on above: Result Comment: This test is not yet approved or cleared by the [place] FDA. When there are no FDA-approved or cleared tests available, and other criteria are met, FDA can make tests available under an emergency access mechanism called an Emergency Use Authorization (EUA). The EUA for this test is supported by the [place] [employer] of Health and Human Service's (HHS's) declaration [...] SARS-CoV-2. Performed By: #### I NFLUAB #### [facility] [address] [place], [place] [address] Dr. Tara Jackson Covid-19 PCR (CVDTBH)on 01-01 SARS-CoV-2 (COVID-19) RNA CHRISTIAN+probe Ql (Unsp spec) Not detected Normal NOT DETECTED [facility] Comment on above: Result Comment: This test is not yet approved or cleared by the [place] FDA. When there are no FDA-approved or cleared tests available, and other criteria are met, FDA can make tests available under an emergency access mechanism called an Emergency Use Authorization (EUA). The EUA for this test is supported by the [place] of Health and Human Service's (HHS's) declaration [...] SARS-CoV-2. Performed By: #### I NFLUAB #### [facility] [address] [place] [address] Dr. Tara Jackson SYMPTOMATIC COVID-19 ANTIGEN on 01-17-2022 EUA Statement SEE BELOW Normal [facility] Comment on above: Result [...] sooner. Performed By: #### C VDAGS #### [facility] [address] [place] [address] Dr. Tara Jackson SARS-CoV-2 (COVID-19) RNA CHRISTIAN+probe Ql (Unsp spec) Negative Normal NEGATIVE [facility] Comment on above: Performed By: #### C VDAGS #### [facility] [address] [address] [address] Tara Jackson CHEMISTRYOrdered By: SYSTEM SYSTEM [...] 7.7 fL Normal 6.0 - 9.5 fL [facility] HemeAutoSS Platelets (Bld) [#/Vol] 382.0 E9/L Normal 150.0 - 450.0 E9/L [facility] HemeAutoSS RBC (Bld) [#/Vol] 4.4 E12/L Normal 4.1 - 5.3 E12/L [facility] HemeAutoSS WBC corrected for nucl RBC Auto (Bld) [#/Vol] 6.5 E9/L Normal 4.0 - 10.5 E9/L [facility] HemeAutoSS MICRO OTHER TESTSOrdered By: Debby Cleveland on 12-04-2021 Rapid COV Int NEG Ctl Pass (12/04/21 11:18 PM) Normal [facility]ero Rapid COV Int POS Ctl Pass (12/04/21 11:18 PM) Normal [facility] SARS-CoV+SARS-CoV-2 (COVID-19) Ag IA.rapid Ql (Resp) Not Detected (12/04/21 11:18 PM) Normal Not Detected [facility] SEROLOGYOrdered By: Debby Cleveland on 12-04-2021 Beta hCG Ql Negative (12/04/21 6:06 PM) Normal [facility] Peds Pulmonary Medicine- Off ice [...] only phone number listed in the computer ([phone]) went straight to the mother's voicemail and it was not taking messages. Called back and requested to call another number - [phone] Today (10/24/2019) I did a telephone conference [...] update: no changes 1 Refills: yes Pharmacy: [facility] in [place] PCP: same 1 Amended By: Martina Bedolla; [...] moderate persistent; YANNA = N; Sent To: [email or web address][id number] Asthma, moderate persistent, Chronic cough Renew: Cetirizine HCl - 10 MG Oral Tablet; TAKE 1 TABLET BY MOUTH DAILY Rx By: Martina Bedolla; Dispense: 0 Days ; #:1 X 30 Tablet Bottle; Refill: 3; For: Asthma, moderate persistent, Chronic cough; YANNA = N; Sent To: [email or web address]6173 Non-allergic rhinitis Renew: Fluticasone Propionate 50 MCG/ACT Nasal Suspension; USE 2 SPRAYS IN EACH NOSTRIL ONCE DAILY Rx By: Martina Bedolla; Dispense: 0 Days ; #:1 X 16 GM Bottle; Refill: 6; For: Non-allergic rhinitis; YANNA = N; Sent To: [email or web address][id number] Signatures Electronically signed by : Martina Bedolla DO; Oct 26 2019 3:32PM EST (Author) Normal [facility]- Off ice [facility] 06-02-2019 [...] or you have questions about the plan ([phone]). Please call us if you are having [...] Behavior appropriate for age. Results/Data Asthma Action [id number] 01:32PMDMartina Sepulveda Test NameResultFlagReference See Scanned DocumetSee Scanned Document Summary / No summary entered : No summary entered Documents attached : Ervinde Action Plan - Martina Bedolla; Enc: [id number] - Appointment - Martina Bedolla - (Pediatric Pulmonology) (Result Document) Spirometry loops personally reviewed. Test done today shows: rejected Orders Asthma, moderate persistent Renew: Dulera 200-5 MCG/ACT Inhalation Aerosol; Inhale 2 puffs twice daily with a spacer Rx By: Martina Bedolla; Dispense: 0 Days ; #:1 X 13 GM Inhaler; Refill: 6;For: Asthma, moderate persistent; YANNA = N; Verified Transmission to [email or web address] #[id number]; Last Updated By: You CampaignAmp; 05/30/2019 3:29:40 PM Renew: Ventolin HFA 108 (90 Base) MCG/ACT Inhalation Aerosol Solution; Inhale 2-4 puffs every 4-6 hours as needed for cough, wheezing and shortness of breath and prior to exercise Rx By: Martina Bedolla; Dispense: 0 Days ; #:1 X 18 GM Inhaler; Refill: 6;For: Asthma, moderate persistent; YANNA = N; Verified Transmission to [email or web address][id number]; Last Updated By: Icanbesponsored; 05/30/2019 3:29:35 PM Attending Note Attestation: Comments/Additional [...] Jun 01 2019 11:38PM EST (Author) Normal [facility] Vis[facility] 02-13-2019 [...] or you have questions about the plan ([phone]). Please call us if you are having [...] history update: no changes Refills: none Pharmacy: [facility] PCP: Rakel Active Problems Allergic rhinitis [...] Plan; Status:Complete; Done: 26Jan2019 02:00PM Performed:In Office; Due:[id number]; Last Updated By:Monica Rowan; 01/26/2019 2:00:50 PM;Ordered; [...] persistent; YANNA = N; Verified Transmission to [facility] #[id number]; Last Updated By: Duarte Orta; [...] SPRAYS IN EACH NOSTRIL ONCE DAILY; Therapy: [id number] to (Last Rx:02Sep2018) Requested for: 02Sep2018 Ordered Rx By: Martina Bedolla; Dispense: 0 Days ; #:1 X 16 GM Bottle; Refill: 5;For: Non-allergic rhinitis; YANNA = N; Print Rx Ibuprofen 800 MG Oral Tablet; Therapy: 26Jan2018 to Recorded Dispense: 20 Days ; #:60; Refill: 0; YANNA = N; Record; Last Updated By: Arminda Linda; 03/18/2018 2:27:47 PM 08/22 1-20 MG-MCG Oral Tablet; Therapy: [id number] to Recorded Dispense: 28 Days ; #:28; Refill: 0; YANNA = N; Record; Last Updated By: Arminda Linda; 03/18/2018 2:27:47 PM QUEtiapine Fumarate 200 MG Oral Tablet; TAKE 1 TABLET EVERY DAY AT BEDTIME; Therapy: [id number] to Recorded Rx By: PAZ; Dispense: 30 Days ; #:30; Refill: 0; YANNA = N; Record; Last Updated By: Martina Bedolla; 01/25/2018 2:11:18 PM Vitals Vital Signs Recorded: 29Oct2018 09:33AM Heart Rate78 Vvhjwayjsnp43 Hehhvfik438 Fyftyxqee08 Hiidgb849 cm 2-20 Stature Oejnbxywac12 % Yidpqu16 kg 2-20 Weight Kruecjwkui06 % BMI Updlpquxzq98.84 BMI Olahjpctqi35 % BSA Calculated1.71 O2 Kdvtkaqefl31 Physical Exam Constitutional: awake, alert and cooperative. [...] twice daily with a spacer Rx By: Mratina Bedolla; Dispense: 0 Days ; #:1 X 13 GM Inhaler; Refill: 6;For: Asthma, moderate persistent; YANNA = N; Verified Transmission to [id number]; Last Updated By: YouOvertone; 10/29/2018 1:37:58 PM Provider Impressions Asthma Severity: [...] or you have questions about the plan ([phone]). Please call us if you are having [...] date of service which is 10/29/2018. [facility] Vital Signs Date Time Vital Sign Value Performing Clinician Facility 02-09-2024 14:30-0400 Blood Pressure Location Radha Cantor [facility] 02-09-2024 14:30-0400 bodymassindex 2.26 kg/m2 Radha Cantor [facility] Comment on above: Result Comment: ^~:!ZScore Source -[facility] 02-09-2024 14:30-0400 Diastolic blood pressure 80 mm[Hg] Radha Cantor [facility] 02-09-2024 14:30-0400 Heart rate 92 /min Radha Cantor [facility] 02-09-2024 14:30-0400 Height/Length Percentile 60.56 1 Radha Cantor [facility] Comment on above: Result Comment: ^~:!Percentile Source -[facility] 02-09-2024 14:30-0400 Height/Length Z-Score 0.27 1 Radha Cantor [facility] Comment on above: Result Comment: ^~:!ZScore [facility] 02-09-2024 14:30-0400 Systolic blood pressure 110 mm[Hg] Radha Cantor [facility] [place] 02-09-2024 14:30-0400 Weight Percentile 99.39 % Radha Cantor [facility] Comment on above: Result Comment: ^~:!Percentile Source [place] [place] 02-09-2024 14:30-0400 Weight Z-Score 2.51 1 Radha Cantor [facility] Comment on above: Result Comment: ^~:!ZScore [facility] 01-22-2024 09:44-0400 Blood Pressure Location Scopial Fashionashleyfrank Simonli [facility] 01-22-2024 09:44-0400 bodymassindex 2.28 kg/m2 Lineagenfrank Nuovo Winduchli [facility] Comment on above: Result Comment: ^~:!ZScore [facility] 01-22-2024 09:44-0400 Diastolic blood pressure 78 mm[Hg] Edgargray Vizcainouchli [facility] 01-22-2024 09:44-0400 Heart rate 94 /min Mohamafrank Mouchli [facility] 01-22-2024 09:44-0400 Height/Length Percentile 60.60 1 Lineagend Mouchli [facility] Comment on above: Result Comment: ^~:!Percentile Source [place] [place] 01-22-2024 09:44-0400 Height/Length Z-Score 0.27 1 Scopial Fashiongray Mouchli [facility] Comment on above: Result Comment: ^~:!ZScore [facility] 01-22-2024 09:44-0400 Respiratory rate 16 /min Ritud Mouchli [facility] 01-22-2024 09:44-0400 Systolic blood pressure 111 mm[Hg] Mohashleyd Mouchli [facility] 01-22-2024 09:44-0400 Weight Percentile 99.42 % Scopial Fashionashleyd Mouchli [facility] Comment on above: Result Comment: ^~:!Percentile [facility] 01-22-2024 09:44-0400 Weight Z-Score 2.52 1 Scopial Fashiongray Simonli [facility] Comment on above: [facility]: [facility] 01-13-[facility] 21:06-0400 Body temperature 98.06 [degF] [facility] 01-13-2024 21:06-0400 Diastolic blood pressure 93 mm[Hg] [facility] 01-13-2024 21:06-0400 Heart rate 71 /min [facility] 01-13-2024 21:06-0400 Mean blood pressure 105 mm[Hg] [facility] 01-13-2024 21:06-0400 Respiratory rate 18 /min [facility] 01-13-2024 21:06-0400 SaO2% (BldA) [Mass fraction] 96 % [facility] 01-13-2024 21:06-0400 Systolic blood pressure 130 mm[Hg] [facility] 01-13-2024 20:40-0400 Diastolic blood pressure 90 mm[Hg] [facility] 01-13-2024 20:40-0400 Heart rate 74 /min [facility] 01-13-2024 20:40-0400 Mean blood pressure 112 mm[Hg] [facility] 01-13-2024 20:40-0400 Systolic blood pressure 156 mm[Hg] [facility] 01-13-2024 19:43-0400 Diastolic blood pressure 84 mm[Hg] [facility] 01-13-2024 19:43-0400 Heart rate 76 /min [facility] 01-13-2024 19:43-0400 Mean blood pressure 100 mm[Hg] [facility] 01-13-2024 19:43-0400 Respiratory rate 18 /min [facility] 01-13-2024 19:43-0400 SaO2% (BldA) [Mass fraction] 97 % [facility] 01-13-2024 19:43-0400 Systolic blood pressure 131 mm[Hg] [facility] 01-13-2024 19:01-0400 Respiratory rate 16 /min [facility] 01-13-2024 19:01-0400 SaO2% (BldA) [Mass fraction] 97 % [facility] 01-13-2024 18:29-0400 Body temperature 98.42 [degF] [facility] 01-13-2024 18:29-0400 bodymassindex 2.3 kg/m2 [facility] Comment on above: Result Comment: ^~:!ZScore Source -[facility] 01-13-2024 18:29-0400 Heart rate 75 /min [facility] 01-13-2024 18:29-0400 Height/Length Percentile 61.20 1 [facility] Comment on above: Result Comment: ^~:!Percentile Source [place] [place] 01-13-2024 18:29-0400 Height/Length Z-Score 0.28 1 [facility] Comment on above: Result Comment: ^~:!ZScore [facility] 01-13-2024 18:29-0400 Weight Percentile 99.46 % [facility] Comment on above: Result Comment: ^~:!Percentile Cele [facility] 01-13-2024 18:29-0400 Weight Z-Score 2.55 1 [facility] Comment on above: Result Comment: ^~:!ZScore [facility] 01-12-2024 17:20-0400 Diastolic blood pressure 91 [...] Comment on above: Result Comment: ^~:!ZScore [facility] 01-12-2024 14:56-0400 Diastolic blood pressure 86 mm[Hg] Radha Whipple [facility] 01-12-2024 14:56-0400 Heart rate 93 /min Radha Whipple [facility] 01-12-2024 14:56-0400 Height/Length Percentile 61.20 1 Radha Whipple [facility] Comment on above: Result Comment: ^~:!Percentile Source [facility] [place] 01-12-2024 14:56-0400 Height/Length Z-Score 0.28 1 Radha Whipple [facility] Comment on above: Result Comment: ^~:!ZScore [facility] 01-12-2024 14:56-0400 Respiratory rate 18 /min Radha Whipple [facility] 01-12-2024 14:56-0400 SaO2% (BldA) [Mass fraction] 99 % Radha Whipple [facility] 01-12-2024 14:56-0400 Systolic blood pressure 135 mm[Hg] Radha Whipple [facility] 01-12-2024 14:56-0400 Weight Percentile 99.46 % Radha Whipple [facility] Comment on above: Result Comment: ^~:!Percentile Source [place] [place] 01-12-2024 14:56-0400 Weight Z-Score 2.55 1 Radha Whipple [facility] Comment on above: Result Comment: ^~:!ZScore Source [facility] 06-30-2023 13:40-0500 Body height 165.1 cm Valorie Hansen MD Work Phone: [facility] 06-30-2023 13:40-0500 Body mass index (BMI) [Percentile] Per age and sex 99.59 % Valorie Hansen MD Work Phone: [facility] 06-30-2023 13:40-0500 Body mass index (BMI) [Ratio] 43.4 kg/m2 Valorie Hansen MD Work Phone: [facility] 06-30-2023 13:40-0500 Body weight 118.3 kg Valorie Hansen MD Work Phone: [facility] 06-30-2023 13:40-0500 Respiratory rate 16 /min Valorie Hansen MD Work Phone: [facility] 05-13-2023 13:00-0400 Hourly Rounding Hasan AMIR [facility] [...] on above: Result Comment: ^~:!ZScore Source -[facility] 05-13-2023 05:27-0400 Weight Percentile 99.33 % Hasan AMIR [facility] Comment on above: Result Comment: ^~:!Percentile Source [place] [place] 05-13-2023 04:00-0400 Body temperature 97.88 [degF] Hasan AMIR [facility] 05-12-2023 09:00-0400 weight 2.48 1 Hasan AMIR [facility] Comment on above: Result Comment: ^~:!SURYcore Source [facility] 05-12-2023 09:00-0400 Weight Percentile 99.34 % Hasan AMIR [facility] Comment on above: Result Comment: ^~:!Percentile Source -[place] 05-12-2023 06:18-0400 weight 2.46 1 Hasan AMIR [facility] Comment on above: Result Comment: ^~:!ZScore Source [facility] ^~:!ZScore [facility] 05-12-2023 06:18-0400 Weight Percentile 99.30 % Hasan AMIR [facility] Comment on above: Result Comment: ^~:!Percentile Source -[place] ^~:!Percentile [facility] 05-11-2023 20:00-0400 Body temperature 97.88 [degF] Hasan AMIR [facility] 05-11-2023 08:01-0400 bodymassindex 2.34 kg/m2 Hasan AMIR [facility] Comment on above: Result Comment: [facility] 05-11-2023 08:01-0400 Height/Length Percentile 61.66 1 Hasan AMIR [facility] Comment on above: Result Comment: ^~:!Percentile Source -[place] 05-11-2023 08:01-0400 Height/Length Z-Score 0.30 1 Hasan AMIR [facility] Comment on above: Result Comment: [facility] 05-11-2023 07:58-0400 bodymassindex 2.34 kg/m2 Hasan AMIR [facility] Comment on above: Result Comment: [facility] 05-11-2023 07:58-0400 Height/Length Percentile 61.66 1 Hasan AMIR [facility] Comment on above: Result Comment: ^~:![facility] 05-11-2023 07:58-0400 Height/Length Z-Score 0.30 1 Hasan AMIR [facility] Comment on above: Result Comment: [facility] 03-16-2023 17:47-0400 Diastolic blood pressure 80 [...] [facility] Comment on above: Result Comment: ^[facility] 03-16-2023 16:52-0400 Diastolic blood pressure 92 mm[Hg] Radha Whipple [facility] 03-16-2023 16:52-0400 Heart rate 104 /min Radha Whipple [facility] 03-16-2023 16:52-0400 Height/Length Percentile 61.80 Radha Whipple [facility] Comment on above: Result Comment: ^~:!Percentile Source -[place] 03-16-2023 16:52-0400 Height/Length Z-Score 0.30 Radha Whipple [facility] Comment on above: Result Comment: ^~:!ZScore [facility] 03-16-2023 16:52-0400 Respiratory rate 17 /min Radha Whipple [facility] 03-16-2023 16:52-0400 SaO2% (BldA) [Mass fraction] 98 % Radha Whipple [facility] 03-16-2023 16:52-0400 Systolic blood pressure 118 mm[Hg] Radha Whipple [facility] 03-16-2023 16:52-0400 weight 2.52 Radha Whipple [facility] Comment on above: Result Comment: ^~:!ZScore [facility] 03-16-2023 16:52-0400 Weight Percentile 99.41 % Radha Whipple [facility] Comment on above: Result Comment: ^~:!Percentile Source -[place] 03-13-2023 07:30-0400 Body temperature 98.1 [degF] MD Claudia Ellington Work Phone: [facility] 03-13-2023 07:30-0400 Diastolic blood pressure 65 mm[Hg] MD Caludia Ellington Work Phone: [facility] 03-13-2023 07:30-0400 Heart rate 60 /min MD Claudia Ellington Work Phone: [facility] 03-13-2023 07:30-0400 Respiratory rate 16 /min MD Claudia Ellington Work Phone: [facility] 03-13-2023 07:30-0400 SaO2% (BldA) [Mass fraction] 95 % MD Claudia Ellington Work Phone: [facility] 03-13-2023 07:30-0400 Systolic blood pressure 97 mm[Hg] MD Claudia Ellington Work Phone: [facility] 03-11-2023 15:15-0400 Body height 165.1 cm MD Claudia Ellington Work Phone: [facility] 03-10-2023 15:55-0400 Body weight 113.39 kg MD Claudia Ellington Work Phone: [facility] 03-10-2023 13:00-0400 Hourly Rounding Orlando Paster [facility] [...] on above: Result Comment: ^~:!ZScore Source -[facility] 03-10-2023 05:04-0400 Weight Percentile 99.41 % Orlando Paster [facility] Comment on above: Result Comment: ^~:!Percentile Source [place] [place] 03-10-2023 00:14-0400 Blood Pressure Location Orlando Paster [...] Comment on above: Result Comment: ^~:!ZScore [facility] 03-09-2023 12:39-0400 Weight Percentile 99.26 % Orlando Paster [facility] Comment on above: Result Comment: ^~:!Percentile Source -[place] 03-08-2023 10:57-0400 Body temperature 97.88 [degF] Orlando [...] [facility] Comment on above: Result Comment: [facility] 03-08-2023 06:49-0400 Weight Percentile 99.74 % Orlando Paster [facility] Comment on above: Result Comment: ^~:!Percentile Source [facility] [place] 03-07-2023 23:48-0400 Respiratory rate 18 /min Orlando Paster [facility] 03-07-2023 20:57-0400 Respiratory rate 18 /min Orlando Paster [facility] 03-07-2023 20:02-0400 bodymassindex 2.58 Orlando Paster [facility] Comment on above: Result Comment: ^~:!ZScore [facility] 03-07-2023 20:02-0400 Height/Length Percentile 61.80 Orlando Paster [facility] Comment on above: Result Comment: ^~:!Percentile Source -[place] 03-07-2023 20:02-0400 Height/Length Z-Score 0.30 Orlando Paster [facility] Comment on above: Result Comment: ^~:!ZScore [facility] 03-07-2023 18:52-0400 bodymassindex 2.58 Orlando Paster [facility] Comment on above: Result Comment: ^~:!SURYcore [facility] 03-07-2023 18:52-0400 Heart rate 91 /min Orlando Paster [facility] 03-07-2023 18:52-0400 Height/Length Percentile 61.80 Orlando Paster [facility] Comment on above: Result Comment: ^~:!Percentile Source [facility] 03-07-2023 18:52-0400 Height/Length Z-Score 0.30 Orlando Paster [facility] Comment on above: Result Comment: ^~:!Debbie [facility] 03-07-2023 14:11-0400 bodymassindex 2.33 Orlando Paster [facility] Comment on above: Result Comment: ^~:!ZSmicah [facility] 03-07-2023 14:11-0400 Heart rate 105 /min Orlando Paster [facility] 03-07-2023 14:11-0400 Height/Length Percentile 61.21 Orlando Paster [facility] Comment on above: Result Comment: ^~:!Percentile Source [facility] 03-07-2023 14:11-0400 Height/Length Z-Score 0.28 Orlando Paster [facility] Comment on above: Result Comment: [facility] 11-13-2022 13:56-0400 Body temperature 98.06 [degF] Wilfredokeysha Villareal [facility] 11-13-2022 13:56-0400 bodymassindex 2.31 Wilfredokeysha Villareal [facility] Comment on above: Result Comment: ^~:![facility] 11-13-2022 13:56-0400 Diastolic blood pressure 85 mm[Hg] Wilfredokeysha Villareal [facility] 11-13-2022 13:56-0400 Heart rate 94 /min Wilfredokeysha Villareal [facility] 11-13-2022 13:56-0400 Height/Length Percentile 61.53 Wilfredo Villareal [facility] Comment on above: Result Comment: ^~:![facility] Cele [facility] 11-13-2022 13:56-0400 Height/Length Z-Score 0.29 Wilfredokeysha Villareal [facility] Comment on above: Result Comment: ^~:![facility] 11-13-2022 13:56-0400 Respiratory rate 16 /min Wilfredokeysha Villareal [facility] 11-13-2022 13:56-0400 SaO2% (BldA) [Mass fraction] 97 % Wilfredo Villareal [facility] 11-13-2022 13:56-0400 Systolic blood pressure 135 mm[Hg] Wilfredo Villareal [facility] 11-13-2022 13:56-0400 weight 2.42 Wilfredo Villareal [facility] Comment on above: Result Comment: ^~:![facility] 11-13-2022 13:56-0400 Weight Percentile 99.23 % [...] 23:00-0500 Respiratory rate 20 /min Alexinn Dokken [facility] 10-10-2022 23:00-0500 Systolic blood pressure 105 mm[Hg] Alexinn Dokken [facility] 10-10-2022 21:54-0500 Body temperature 98.42 [degF] Alexinn Dokken [facility] 10-10-2022 21:54-0500 bodymassindex 2.32 Ginan Dokken [facility] Comment on above: Result Comment: [facility] 10-10-2022 21:54-0500 Height/Length Percentile 62.20 Ginan Dokken [facility] Comment on above: Result Comment: ^~:!Percentile [facility] 10-10-2022 21:54-0500 Height/Length Z-Score 0.31 Ginan Dokken [facility] Comment on above: Result Comment: ^[facility] 10-10-2022 21:54-0500 Respiratory rate 15 /min Alexinn Dokken [facility] 10-10-2022 21:54-0500 weight 2.43 Rockyylinn Dokken [facility] Comment on above: Result Comment: ^~:!ZScore [facility] 10-10-2022 21:54-0500 Weight Percentile 99.24 % Ko Draper [facility] Comment on above: Result Comment: ^~:!Percentile Source [facility] [place] 10-06-2022 14:00-0500 Diastolic blood pressure 69 mm[Hg] [...] Comment on above: Result Comment: ^~:!ZScore [facility] 10-05-2022 23:51-0500 Diastolic blood pressure 78 mm[Hg] Han Miky [facility] 10-05-2022 23:51-0500 Heart rate 89 /min Han Miky [facility] 10-05-2022 23:51-0500 Height/Length Percentile 61.61 Han Miky [facility] Comment on above: Result Comment: ^~:![facility] 10-05-2022 23:51-0500 Height/Length Z-Score 0.30 Han Miky [facility] Comment on above: Result Comment: ^[facility] 10-05-2022 23:51-0500 Respiratory rate 18 /min Han Miky [facility] 10-05-2022 23:51-0500 SaO2% (BldA) [Mass fraction] 95 % Han Miky [facility] 10-05-2022 23:51-0500 Systolic blood pressure 171 mm[Hg] Han Miky [facility] 10-05-2022 23:51-0500 weight 2.45 Han Miky [facility] Comment on above: Result Comment: ^[facility] 10-05-2022 23:51-0500 Weight Percentile 99.29 % Han Miky [facility] Comment on above: Result Comment: ^~:!Percentile Source -[place] 07-08-2022 22:00-0500 Body temperature 98.78 [degF] Kaylinn [...] [facility] Comment on above: Result Comment: ^[facility] 07-08-2022 18:52-0500 Heart rate 86 /min Kaylinn Dokken [facility] 07-08-2022 18:52-0500 Height/Length Percentile 61.90 % Ko Draper [facility] Comment on above: Result Comment: ^~:!Percentile [facility] 07-08-2022 18:52-0500 Height/Length Z-Score 0.30 Ko Draper [facility] Comment on above: Result Comment: ^~:!ZScore [facility] 07-08-2022 18:52-0500 Respiratory rate 18 /min Ko Draper [facility] 07-08-2022 18:52-0500 weight 2.47 Ko Draper [facility] Comment on above: Result Comment: ^~:!ZScore [facility] 07-08-2022 18:52-0500 Weight Percentile 99.33 % Ko Draper [facility] Comment on above: Result Comment: ^~:!Percentile [facility] 07-04-2022 18:09-0500 Body temperature 98.06 [degF] Radha Whipple [facility] 07-04-2022 18:09-0500 bodymassindex 2.21 Radha Whipple [facility] Comment on above: Result Comment: ^~:!ZScore [facility] 07-04-2022 18:09-0500 Diastolic blood pressure 83 mm[Hg] Radha Chaparroe [facility] 07-04-2022 18:09-0500 Heart rate 99 /min Radha Whipple [facility] 07-04-2022 18:09-0500 Height/Length Percentile 61.90 % Radha Whipple [facility] Comment on above: Result Comment: ^~:!Percentile Source [facility] [place] 07-04-2022 18:09-0500 Height/Length Z-Score 0.30 Radha Whipple [facility] Comment on above: Result Comment: [facility] 07-04-2022 18:09-0500 Respiratory rate 18 /min Radha Whipple [facility] 07-04-2022 18:09-0500 SaO2% (BldA) [Mass fraction] 97 % Radha Whipple [facility] 07-04-2022 18:09-0500 Systolic blood pressure 121 mm[Hg] Radha Whipple [facility] 07-04-2022 18:09-0500 weight 2.29 Radha Whipple [facility] Comment on above: Result Comment: ^~:![facility] 07-04-2022 18:09-0500 Weight Percentile 98.88 % Radha Whipple [facility] Comment on above: Result Comment: ^~:!Percentile Source [facility] 07-02-2022 16:02-0500 Diastolic blood pressure 64 mm[Hg] Wilfredo Mono [facility] 07-02-2022 16:02-0500 Heart rate 95 /min Wilfredokeysha Villareal [facility] 07-02-2022 16:02-0500 Respiratory rate 18 /min Wilfredo Mono [facility] 07-02-2022 16:02-0500 SaO2% (BldA) [...] [facility] Comment on above: Result Comment: [facility] 07-02-2022 13:28-0500 Diastolic blood pressure 74 mm[Hg] Wilfredo Villareal [facility] 07-02-2022 13:28-0500 Heart rate 108 /min Wilfredo Villareal [facility] 07-02-2022 13:28-0500 Height/Length Percentile 61.90 % Wilfredo Villareal [facility] Comment on above: Result Comment: ^~:!Percentile Source [facility] 07-02-2022 13:28-0500 Height/Length Z-Score 0.30 Wilfredo Villareal [facility] Comment on above: Result Comment: ^~:!ZScore [facility] 07-02-2022 13:28-0500 Respiratory rate 18 /min Wilfredo Villareal [facility] 07-02-2022 13:28-0500 SaO2% (BldA) [Mass fraction] 98 % Wilfredo Villareal [facility] 07-02-2022 13:28-0500 Systolic blood pressure 130 mm[Hg] Wilfredo Villareal [facility] 07-02-2022 13:28-0500 weight 2.29 Wilfredo Villareal [facility] Comment on above: Result Comment: ^~:!ZScore [facility] 07-02-2022 13:28-0500 Weight Percentile 98.88 % Wilfredo Villareal [facility] Comment on above: Result Comment: ^~:!Percentile Source [facility] 12-05-2021 22:39-0400 Blood Pressure Location Wilfredo Villareal [...] Start: 03-03-2024 End: 03-03-2024 ambulatory Zenon Hernandez [facility] Start: 03-03-2024 End: 03-03-2024 Patient encounter procedure Zenon Hernandez [facility] Start: 03-02-2024 ambulatory Claudia Ellington Facility: [facility] Start: 03-01-2024 End: 03-01-2024 ambulatory PEYTON QUIROZ Not Available Start: 02-16-2024 End: 02-16-2024 ambulatory Radha Cantor Facility[facility] Start: 02-16-2024 End: 02-16-2024 Patient encounter procedure Rdaha Cantor [facility] Start: 02-09-2024 End: 02-09-2024 ambulatory Zenon Hernandez Facility:[facility] Start: 02-09-2024 End: 02-09-2024 Patient encounter procedure Radha Cantor [facility] [place] Start: 01-28-2024 ambulatory [place] Start: 01-25-2024 ambulatory Migue Farrell Facility :[facility] Start: 01-22-2024 End: 01-22-2024 ambulatory Zenon Hernandez Facility:[facility] Start: 01-22-2024 End: 01-22-2024 Patient encounter procedure Zenon Hernandez [facility] Start: 01-14-2024 ambulatory [facility]igue Farrell [facility] Start: 01-13-2024 End: 01-13-2024 Emergency department patient visit Migue Farrell [facility] Start: 01-12-2024 End: 01-12-2024 Emergency department patient visit Radha Whipple Facility:[facility] Start: 06-30-2023 ambulatory VALORIE HANSEN [facility] Start: 06-30-2023 End: 06-30-2023 Office outpatient new 30 minutes Valorie Hansen MD Work Phone: [facility] Comment on above: Macromastia (Primary Dx); Thoracic spine pain Start: 05-11-2023 End: 05-13-2023 Evaluation and management of inpatient Akosua LR [facility] Start: 04-27-2023 Evaluation and management of inpatient Noel Stratton Facility:[facility] Start: 03-16-2023 End: 03-16-2023 Emergency department patient visit Radha Whipple [facility] Start: 03-10-2023 End: 03-13-2023 Evaluation and management of inpatient MD Claudia Ellington Work Phone: [address] Work Phone: Start: 03-10-2023 End: 03-10-2023 ambulatory CLAUDIA ELLINGTON [facility] Start: 03-08-2023 End: 03-10-2023 Evaluation and management of inpatient Lawrence Reveles Facility:[facility] Start: 03-07-2023 End: 03-10-2023 Evaluation and management of inpatient Orlando HiLaurita Wade [facility] Start: 02-27-2023 End: 02-27-2023 ambulatory MISTY MACKEY Facility:[facility] Start: 11-14-2022 End: 11-14-2022 ambulatory [facility] Start: 11-13-2022 End: 11-13-2022 Emergency department patient visit Wilfredo Villareal [facility] Start: 11-05-2022 End: 11-06-[address] CLAUDIA ELLINGTON . Facility: Start: 11-05-2022 End: 11-05-2022 ambulatory TEENA TRAN . Facility: Start: 10-15-2022 End: 10-15-2022 ambulatory JUA NMIGUEL HUYNH [facility] Start: 10-13-2022 End: 10-13-2022 ambulatory [facility] Start: 10-10-2022 End: 10-11-2022 Emergency department patient visit Ko Draper [facility] Start: 10-06-2022 End: 10-06-2022 ambulatory [facility] Start: 10-05-2022 End: 10-06-2022 Emergency department [...] 07-31-2022 ambulatory MD Claudia Ellington Work Phone: [facility] Work Phone: Start: 07-31-2022 End: 07-31-2022 Patient encounter procedure MD Claudia Ellington Work Phone: [facility] [place] Work Phone: Start: 07-24-2022 End: 07-24-2022 ambulatory [...] Start: 05-14-2022 End: 05-14-2022 ambulatory CLAUDIA ELLINGTON [facility] Start: 04-26-2022 End: 04-27-[address] [...] Start: 09-02-2018 Patient encounter procedure Martina Bedolla Facility:[id number] Start: 03-29-2018 Patient encounter procedure Martina Bedolla Facility:[id number] Start: 03-18-2018 Patient encounter procedure Liss Salvador Facility:[id number] Start: 01-25-2018 Patient encounter procedure Martina Bedolla Facility:[id number] Procedures Date Procedure Procedure Detail Performing Clinician Myringotomy and antwan strickland of middle ear Wilfredo Villareal Plan of Treatment Date Care Activity Detail Author Start: 01-29-2028 Tetanus vaccination TETANUS [facility] Start: 04-03-2023 COVID-19 VACCINE ( season) COVID-19 VACCINE () [facility] Start: 03-13-2023 [facility] Start: 03-10-2023 Hospital admission [facility] Start: 03-10-2023 [facility] Start: 2020 Screening for Chlamy patricia trachomatis CHLAMYDIA SCREEN [facility] Start: 12-31-2019 HIV screening HIV SCREENING DISCUSSI ON [facility] Start: 2004 Hepatitis C screening HEPATITI S C VIRUS SCREENING [facility] Start: 2004 Screening for Chlamy patricia trachomatis GONORRHEA SCREEN [facility] Patient Education Depression, Ad ult (DC) [facility] DC Instructions [facility] Work Phone: Patient referral [facility] Work Phone: Immunizations Immunization Date Immunization Notes Care Provider Hope ackerman 05-06-2023 influenza virus vaccine, unspecified formulation Zenon Vizcainowei [facility] 10-03-2022 SARS-CoV-2 (COVID-19 ) mRNAMUL.ORD![id number] Orlando Paster [facility] 07-31-2022 meningococcal B vaccine, fully recombinant Orlando Paster [facility] 07-31-2022 [...] type b vaccine, PRP-T conjugate Orlando Wade [facility] 2004 hepatitis B vaccine, pediatric or pediatric/adolescent dosage Orlando Wade [facility] Payers Date Payer Category Payer Unknown ANU CALIXTO [id number] 2023-Present [address] [place] [address] [id number] 2022 Self-pay [id number] 2004 Unknown [id number] 2.16.840.1.978218.3.579.2.479 2004 Unknown [id number] 2.16.840.1.939370.3.579.2.983 2004 Unknown [id number] 2.16.840.1.001332.3.579.2.727 2004 Unknown [id number] 2.16.840.1.657267.3.579.2.727 2004 Unknown [id number] 2.16.840.1.404904.3.579.2.727 2004 Unknown [id number] 2.16.840.1.274140.3.579.2.727 2004 Unknown [id number] 2.16.840.1.331656.3.579.2.727 2004 Unknown [id number] 2.16.840.1.429706.3.579.2.727 2004 Unknown [id number] 2.16.840.1.967365.3.579.2.727 2004 Unknown [id number] 2.16.840.1.782723.3.579.2.1259 2004 Unknown [id number] 2.16.840.1.370449.3.579.2.727 2004 Unknown [id number] 2.16.840.1.039280.3.579.2.727 2004 Unknown [id number] 2.16.840.1.187547.3.579.2.727 2004 Unknown [id number] 2.16.840.1.673780.3.579.2.727 2004 Unknown [id number] 2.16.840.1.272758.3.579.2.727 2004 Unknown [id number] 2.16.840.1.316267.3.579.2.727 1979 Unknown [id number] 2.16.840.1.645660.3.579.2.356 1979 Unknown [id number] 2.16.840.1.730861.3.579.2.356 1979 Unknown [id number] 2.16.840.1.400603.3.579.2.356 1979 Unknown [id number] 2.16.840.1.876342.3.579.2.356 1979 Unknown [id number] 2.16.840.1.408684.3.579.2.593 1979 Unknown [id number] 2.16.840.1.967912.3.579.2.593 1979 Unknown [id number] 2.16.840.1.348163.3.579.2.593 1979 Unknown [id number] 2.16.840.1.244656.3.579.2.593 1979 Unknown [id number] 2.16.840.1.654226.3.579.2.593 1979 Unknown [id number] 2.16.840.1.552044.3.579.2.593 1979 Unknown [id number] 2.16.840.1.761866.3.579.2.593 1979 Unknown [id number] 2.16.840.1.000821.3.579.2.593 1979 Unknown [id number] 2.16.840.1.968070.3.579.2.593 1979 Unknown [id number] 2.16.840.1.510603.3.579.2.593 1979 Unknown [id number] 2.16.840.1.284091.3.579.2.593 1979 Unknown [id number] 2.16.840.1.516480.3.579.2.593 1979 Unknown [id number] 2.16.840.1.594048.3.579.2.593 1979 Unknown [id number] 2.16.840.1.401329.3.579.2.593 1979 Unknown [id number] 2.16.840.1.506717.3.579.2.593 1979 Unknown [id number] 2.16.840.1.198720.3.579.2.593 1979 Unknown [id number] 2.16.840.1.396161.3.579.2.593 1979 Unknown [id number] 2.16.840.1.799057.3.579.2.593 1979 Unknown [id number] 2.16.840.1.579638.3.579.2.479 1979 Unknown [id number] 2.16.840.1.677471.3.579.2.479 1979 Unknown [id number] 2.16.840.1.092042.3.579.2.479 1979 Unknown [id number] 2.16.840.1.823422.3.579.2.479 1979 Unknown [id number] 2.16.840.1.527107.3.579.2.479 1959 Unknown [id number] 1959 Unknown [id number] Unknown [id number] 2.16.840.1.558422.3.579.2.531 Unknown [id number] 2.16.840.1.929684.3.579.2.531 Unknown [id number] 2.16.840.1.200971.3.579.2.531 Social History Date Type Detail Facility Start: 12-04-2021 End: 02-09-2024 Tobacco smoking status Never smoked tobacco (finding) [facility] Start: 06-30-2023 Sex Assigned At Female [facility] Tobacco [facility] Comment on above: denies Tobacco smoking status No Smokin g Status Entered [facility] Start: 2004 Sex Assigned At Female F [facility] Start: 06-30-2023 [facility]as[facility] tobacco smoker [facility] Start: 06-30-2023 History of Social function [facility] Start: 06-30-2023 Tobacco Comment vape [facility] Start: 2004 Sex Assigned At Not on file [facility] [employer] [facility] [facility] Goals Date Patient Goal Desired Activity /State Functional Status Date Assessment Result Facility 01-22-2024 Functional Status N/A [facility] 01-13-2024 Functional Status N/A [facility] 01-12-2024 Functional Status N/A [facility] 05-11-2023 Functional Status N/A [facility] 03-16-2023 Functional Status N/A [facility] 03-13-2023 Functional status Patient at [facility] Work Phone: 03-07-2023 Functional Status N/A [facility] 03-07-2023 Functional Status [facility] 11-13-2022 Functional Status N/A [facility] 10-10-2022 Functional Status N/A [facility] 10-05-2022 Functional Status N/A [facility] 07-08-2022 Functional Status N/A [facility] 07-04-2022 Functional Status N/A [facility] 07-02-2022 Functional Status N/A [facility] Mental Status Date Assessment Result Facility 03-13-2023 Cognitive function Cognitive Sta tus Patient at Baseline [facility] Work Phone: Clinical Notes 07-02-2022 to [...] instructions Patient Education 01/13/2024 20:49:15 Acute Pancreatitis, Txwg-kn-Hsxu Acute Pancreatitis Acute pancreatitis happens when there [...] Follow these instructions at home: Medicines Take jjpz-hxk-kkpxvhz and prescription medicines only as told by [...] provider. Document Revised: 06/10/2022 Document Reviewed: 06/10/2022 [employer] Patient Education 2022 Wedivite. 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 Coffee and tea (caffeinated or decaffeinated). [place]. Liquid nutritional supplements. Soft drinks. Nondairy milks, such as almond, coconut, rice, or soy milk. Sweets and desserts Custard. Pudding. Flavored gelatin. Smooth ice cream (without nuts or candy pieces). Sherbet. Frozen ice pops. Slovenian ice. Pudding pops. Seasonings and condiments Salt and pepper. Spices. Vinegar. Ketchup. Yellow mustard. Smooth sauces, such as Hollandaise, cheese sauce, or white sauce. Soy sauce. Syrup. Honey. Jelly (without fruit pieces). Other foods [place] powder. Cream soups. Strained soups. The items [...] Document Reviewed: 05/07/2021 Elsevier Patient Education 2022 Wedivite. 01/12/2024 16:42:34 Nausea, Adult, Sojw-iw-Kdwp Nausea, Adult Nausea is feeling like you [...] fruit juice). ?Low-calorie sports drinks. Eat bland, xzfa-wo-qvzmhd foods in small amounts as you are able, such as: ?Bananas. ?Applesauce. ?Rice. ?Low-fat (lean) meats. ?Festus. ?Crackers. Avoid drinking fluids that have a lot of sugar or caffeine in them. This includes energy drinks, sports drinks, and soda. Avoid alcohol. Avoid spicy or fatty foods. General instructions Take cild-cbb-crbcore and prescription medicines only as told by [...] cannot use soap and water, use hand piccoloist. Make sure that everyone in your home [...] drink what your doctor tells you. Take oloy-dte-uklyzlq and prescription medicines only as told by your doctor. Contact a doctor right away if your symptoms get worse or you have new symptoms. Keep all follow-up visits. This information is not intended to replace advice given to you by your health care provider. Make sure you discuss any questions you have with your health care provider. Document Revised: 01/24/2022 Document Reviewed: 01/24/2022 [employer] Patient Education 2022 Wedivite. 01/12/2024 16:42:31 Abdominal Pain, Adult, Zqim-ym-Elmx Abdominal Pain, Adult Many things can cause belly (abdominal) pain. Most times, belly pain is not dangerous. Many cases of belly pain can be watched and treated at home. Sometimes, though, belly pain is serious. Your doctor will try to find the cause of your belly pain. Follow these instructions at home: Medicines Take fglp-chu-alddgyw and prescription medicines only as told by [...] your belly pain for any changes. Take bncr-ndg-blrmpaz and prescription medicines only as told by [...] provider. Document Revised: 11/28/2019 Document Reviewed: 11/28/2019 [employer] Patient Education 2022 Wedivite. Follow Up Care 01/12/2024 14:44:40 With:Claudia Ellington MD Address: [address] [place] [address] [place] [address]- When:01/15/2024 [facility] 06-30-2023 History of Present [...] her perioperative risk. documented in this encounter [facility] 05-25-2023 Note Admission and Discha rge Information Admit Date/Time:05/11/2023 07:29 Admitting Physician - ADELINE MARCANO, Akosua Referring Physician - PEYTON QUIORZ CNP Admitting Diagnoses: Discharge Diagnoses 1. Seizures, [...] 46.4 % Lymph Auto - 41.3 % [place] Auto - 8.8 % Eos Auto - 3.1 % Basophil Auto - 0.4 % Neutro Absolute - 2.6 E9/L Lymph Absolute - 2.3 E9/L [place] Absolute - 0.5 E9/L Eos Absolute - 0.2 E9/L Basophil Absolute - 0.0 E9/L Capillary Glucose POC (05/12/2023) Glucose Cap - 84 mg/dL POC Device SN - [id number] POC User ID - [id number] POC Username - NERY ALCALA CBC w/ [...] Follow-up With When Contact Information Joann Zamorano [address] [address]- Business (1) Additional Instructions: Call for hospital followup appointment 2-3 weeks Claudia Ellington [address] [place] [phone]- Business (1) Additional Instructions: Call for followup appointment Patient Education Seizure, Adult [facility] Comment on above: Result Comment: Elec [...] Follow these instructions at home: Medicines Take okvs-vsj-fjxsisl and prescription medicines only as told by [...] medicines are used to treat seizures. Take yxqi-tjd-wuqerth and prescription medicines only as told by your health care provider. This information is not intended to replace advice given to you by your health care provider. Make sure you discuss any questions you have with your health care provider. Document Revised: 01/25/2021 Document Reviewed: 01/25/2021 [employer] Patient Education 2022 Wedivite. Follow Up Care 04/22/2023 12:48:03 With:Joann Zamorano Address: [address] [phone]- Business (1) When: Unknown Comments:Call for hospital followup appointment 2-3 weeks With:Claudia Ellington Address: [address] [place] [phone]- Business (1) When: Unknown Comments:Call for followup [...] date 05/11/23 16:03:00 EDT, 05/11/23 16:03:00 EDT [facility] Prescription, lurasidone 60 mg oral tablet, [...] sensation in all 4 extremities Cerebellar exam: Qaqycm-yw-ztyd reveals no ataxia. Gait is normal Assessment/Plan [...] 12/04/2021 Immunizations Vaccine Date Status SARS-CoV-2 (COVID-19) mRNAMUL.ORD![id number] 10/03/2022 Recorded meningococcal group B vaccine 07/31/2022 [...] hepatitis A pediatric vaccine (more content not included)...[facility]Result Comment: Electronically Signed By: [...] sensation in all 4 extremities. Cerebellar exam: Lrfegd-zo-lzpk reveals no ataxia. Gait is normal. Assessment/Plan [...] 12/04/2021 Immunizations Vaccine Date Status SARS-CoV-2 (COVID-19) mRNAMUL.ORD![id number] 10/03/2022 Recorded meningococcal group B vaccine 07/31/2022 [...] 05/28/2005 Recorded haemophilus b (more content not included)...[facility]:Result Comment: Electronically Signed By: Diann SHER, Riya\.br\Date and Time Signed: 05/11/23 09:39 EDT\.br\Electronically Co-Signed By: Melecio Rubio MD\.br\Date and Time Co-Signed: 05/12/23 08:36 [id number] NoteBasic Information Admit Date/Time:05/11/2023 07:29 Chief Complaint [...] date 05/11/23 16:03:00 EDT, 05/11/23 16:03:00 EDT [facility] Prescription, lurasidone 60 mg oral tablet, [...] agreement with POC. P (more content not included)...[facility]: Result Comment: Electronically Signed By: Alicia Sidhu\.br\Date and Time Signed: 05/11/23 20:00 EDT\.br\Electronically Co-Signed By: Akosua LR MD\.br\Date and Time Co-Signed: 05/12/23 06:56 [id number] Hospital Discharge instructions Patient Education 03/16/2023 17:50:47 [...] Follow these instructions at home: Medicines Take alrt-eja-jabdbsh and prescription medicines only as told by [...] and water are not available, use hand piccoloist. ?Leave stitches (sutures), skin glue, or adhesive [...] provider. Document Revised: 10/24/2021 Document Reviewed: 10/24/2021 [employer] Patient Education 2022 Wedivite. 03/16/2023 17:50:47 Head Injury, Adult Head Injury, [...] Ask your health care provider for a czqj-yn-hxhm plan for gradually returning to activities. Ask [...] your friends, family, a trusted colleague, and best worker about your injury, symptoms, and restrictions. Have them watch for any new or worsening problems. General instructions Take ffnb-rlz-cfwlati and prescription medicines only as told by [...] provider. Document Revised: 06/01/2020 Document Reviewed: 06/01/2020 [employer] Patient Education 2022 Wedivite. Follow Up Care 03/16/2023 16:19:26 With:Claudia Ellington Address: [address] [place], [place] [phone] Business (1) When:03/19/2023 17:36:52 [facility]08-11-2023 Discharge summary Author John Monson [facility] March 13, 2023 9:40am Note Date/Time March 13, 2023 9: 40am [facility] [address] [place] [address] Discharge Summary Signed Patient: Rose Mary Schneider MR#: [id number] : 2005 Acct:[id number] Age/Sex: 17 / F Adm Date: 3 Loc: Room: [address] [place] [address]: John Monson MD Copies to: [...] admission note),the patient was pink slipped from [employer] and acknowledged she attempted suicide by overdosing [...] No Activity Restrictions Instructions: Depression, Adult (DC), [facility] DC Instructions Prescriptions: Continued levetiracetam [...] 14 Days Qty: 21 0RF Follow Up: [facility] [Outside] [facility] [Outside] (Sees Dr. Mackey.) Joann Zamorano DO [Courtesy/Consulting Physician] - (Contact your neurologist with any needs related to history of seizures. ) Claudia Ellington MD [Primary Care Provider] - (Contact your primary care providerwith any medical needs. ) Documented By: John Monson MD 03/13/2338 Signed By: <Electronically signed by John Monson MD> 03/13/2340 [facility] Work Phone: 1(391) 564-923108-10-2023 Progress note Author John Monson [facility] March 12, 2023 1:37pm Note Date/Time March 12, 2023 1: 37pm [facility] [address] [place] [address] Psychiatry Progress Note Signed Patient: Rose Mary Schneider MR#: [id number] : 2005 Acct:[id number] Age/Sex: 17 / F Adm Date: 3 Loc: Room: [address] [place] [address] Type : ADM IN Attending Dr: John [...] therapy Documented By: John Monson MD 03/12/23 1158 Signed By: <Electronically signed by John Monson MD> 03/12/23 4669 [facility] Work Phone: 1(453) 487-454808-09-2023 History and physical note Author John Monson [facility] March 11, 2023 1:28pm Note Date/Time March 11, 2023 1:2 8pm [facility] [address] [place] [address] Psychiatry H&P Signed Patient: Rose Mary Schneider MR#: [id number] : 2005 Acct:[id number] Age/Sex: 17 / F Adm Date: 3 Loc: Room: [address] [place] [address] Type: ADM IN Attending Dr: John Monson MD Copies to: MD Claudia Avila MD~ Date of Service: 03/11/2023 HPI History of Present Illness History of present illness: This is a 17-year-old female with reported history of depression and suicidal ideation who presents for inpatient admission due to worsening of suicidal thoughts. Reportedly (per admission note),the patient was pink slipped from [employer] and acknowledged she attempted suicide by overdosing [...] and she stated that she was compliant. [facility] Vaccinated for COVID-19?: Yes Medical History (Updated [...] signed by John Monson MD> 03/11/23 1328 [facility] Work Phone: 1(948) 872-606908-08-2023 Hospital Discharge instructions Patient Education 03/10/2023 12:40:41 [...] services (911 in the [place] Call the [facility] services helpline (211 in the [place] Call or text a suicide hotline to speak with a trained counselor. The following suicide hotlines are available in the [place]: ?6-519-200-TALK ( or 857 in the [place] ?5-154-BWBKIXL ( ). ?Text 642092. This is the Crisis Text Line in the [place] ? . This is a hotline for Palauan speakers. ? . This is a hotline for TTY users. ?3-544-3-U-ELIZA ( ). This is a hotline for lesbian, schultz, bisexual, transgender, or questioning youth. ?For a list of hotlines in [place], visit suicide.org/hotlines/international/hoxtdo-xbyjaev-thrdksze.html Contact a crisis center or a local [...] to anyone or being with other people. ?Acbk-lv-jbea conversation is best to help them understand [...] physical and a mental health checkup. Take uwwd-hew-xizsdig and prescription medicines only as told by [...] information National Suicide Prevention Lifeline: www.suicidepreventionlifeline.org Hopeline: www.hopeline.[employer] [place] Foundation for Suicide Prevention: www.afsp.org The Eliza Project (for lesbian, schultz, bisexual, transgender, or questioning youth): www.thetrevorproject.org National Anderson of Mental Health: www.nimh.nih.gov/health/topics/suicide-prevention Suicide Prevention Resources: afsp.org/qgkpjwm-rcucrlahtm-udacrsski Contact a health care provider if: You [...] provider. Document Revised: 02/13/2022 Document Reviewed: 11/28/2021 [employer] Patient Education 2022 [employer] Inc[employer] Follow Up Care 03/07/2023 14:09:50 With:Claudia Ellington Address: [address] [place] [phone] Business (1) When: Unknown Comments:Call for followup [...] release With When Contact Information Claudia Ellington [address] [place] [phone] Business (1) Additional Instructions: Call for followup [...] Ordered: [facility] Hospital Care/Day Moderate 35 Minutes 22982 2. Hypokalemia, (E87.6: Hypokalemia)Hypokalemia Resolved [facility] Moderate 35 Minutes 68767 2. Suicidal ideation (R45.851: Suicidal ideations) No longer expressing suicidal ideation She was pink slipped yesterday; awaiting MHP Ordered: [facility] Hospital Care/Day Moderate 35 Minutes 51912 3. Antihistamines overdose (T45.0X1A: Poisoning by antiallergic and antiemetic drugs, accidental (unintentional), initial encounter) Ordered: [facility] Hospital Care/Day Moderate 35 Minutes 77341 5. Depression (F32.A: Depression, unspecified) Continue fluoxetine Ordered: [facility] Hospital Care/Day Moderate 35 Minutes 38858 6. Seizure (R56.9: Unspecified convulsions) Continue Keppra, Lamictal and lurasidone Seizure precautions Ordered: [facility] Hospital Care/Day Moderate 35 Minutes 73795 7. Obesity (E66.9: Obesity, unspecified) Ordered: [facility] Hospital Care/Day Moderate 35 Minutes 83893 8. 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 Secondary to suicide ideation/attempt. 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 Acetaminophen level ekta to 40 but trended down to undetectable. Treating with IVF Thursday. LFTs within normal limit. Repeat LFTs and PT/INR in AM. Ordered: Basic Metabolic Panel Comprehensive Metabolic Panel Consult to Superintendent Sales eGFR Extra Lav Tube Hepatic Function Panel PT [facility] Hospital Care/Day Moderate 35 Minutes 52197 2. Suicidal ideation (R45.851: Suicidal ideations) Supportive care. 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 Mental health evaluation in a.m. once medically stable. Ordered: Consult to Superintendent Sales [facility] Hospital Care/Day Moderate 35 Minutes 24483 3. Antihistamines overdose (T45.0X1A: Poisoning by antiallergic and antiemetic drugs, accidental (unintentional), initial encounter) Treated with charcoal. Respiratory status and circulation currently stable. Treated with IV fluid. Bladder scan so far not retaining urine. Ordered: [facility] Hospital Care/Day Moderate 35 Minutes 15635 4. Hypokalemia (E87.6: Hypokalemia) Secondary to gastrointestinal loss and IV fluid. We will replace orally. Ordered: potassium chloride, 40 mEq = 2 tab(s), Tab-ER, Oral, BID for 2 dose(s), Stop date 03/09/23 8:59:00 EDT, Routine, Start date 03/08/23 9:00:00 EDT, 03/08/23 8:36:00 EDT Comprehensive Metabolic Panel [facility] Hospital Care/Day Moderate 35 Minutes 70049 5. Depression (F32.A: Depression, unspecified) On fluoxetine. Ordered: [facility] Hospital Care/Day Moderate 35 Minutes 32343 6. Seizure (R56.9: Unspecified convulsions) No reported seizure. On Lamictal and Keppra. Ordered: lorazepam, 1 mg = 0.5 mL, Injection, IV Push, QID PRN Seizure, Routine, Start date 03/07/23 18:04:00 EDT 7. Obesity (E66.9: Obesity, unspecified) Recommend therapeutic lifestyle modification changes. 8. On deep vein thrombosis (DVT) prophylaxis (Z79.899: Other snf (current) drug therapy) SCDs. Disposition: Pending mental health evaluation in AM. I discussed the diagnosis and plan of care with the patient at the bedside. Moderate level of MDM based on addressing above issues. This documentation was transcribed using voice recognition software. Several attempts were made to ensure accuracy. However inadvertent computerized direct service provider errors may be present. Jennifer Retana. Hospitalist. [...] observation. Ordered: Basic Metabolic Panel Consult to Superintendent Sales Hepatic Function Panel Initial Hospital Care/Day High 75 Minutes 29735 2. Suicidal ideation (R45.851: Suicidal ideations) Supportive care. Social work evaluation. Mental health evaluation once medically stable. Ordered: Consult to Superintendent Sales Initial Hospital Care/Day High 75 Minutes 36940 3. Antihistamines overdose (T45.0X1A: Poisoning by antiallergic and antiemetic drugs, accidental (unintentional), initial encounter) Treated with charcoal. Currently sedated with secured and circulation stable. Monitor patient with end-tidal CO2 monitor. We will observe for delirium/agitation and may treat with physostigmine. Bladder scan every 6 hours to check for urinary retention. Ordered: Initial Hospital Care/Day High 75 Minutes 72578 4. Depression (F32.A: Depression, unspecified) On fluoxetine at home. Ordered: Initial Hospital Care/Day High 75 Minutes 49012 5. Seizure (R56.9: Unspecified convulsions) On Keppra and Lamictal. Ordered: lorazepam, 1 mg = 0.5 mL, Injection, IV Push, QID PRN Seizure, Routine, Start date 03/07/23 18:04:00 EDT, 03/07/23 18:04:00 EDT Initial Hospital Care/Day High 75 Minutes 09607 6. Obesity (E66.9: Obesity, unspecified) Recommend therapeutic lifestyle modification changes. 7. On deep vein thrombosis (DVT) prophylaxis (Z79.899: Other snf (current) drug therapy) SCDs. Disposition: The patient [...] made to ensure accuracy. However inadvertent computerized direct service provider errors may be present. Jennifer Retana. Hospitalist. [...] - Ordered -- 03/10/23 12:22:00 EDT, to [address] [place] [address] Discharge Diagnoses 1. Intentional acetaminophen overdose, Poisoning [...] the setting of OD, Consult and Co-manage Superintendent Sales Consult - Completed -- 03/07/23 17:58:00 EDT, [...] 60.3 % Lymph Auto - 28.7 % [place] Auto - 8.6 % Eos Auto - 1.9 % Basophil Auto - 0.5 % Neutro Absolute - 4.1 E9/L Lymph Absolute - 2.0 E9/L [place] Absolute - 0.6 E9/L Eos Absolute - [...] - 7.2 gm/dL A (more content not included)...[facility]: Result Comment: Electronically Signed By: Lawrence Reveles DO\.br\Date and Time Signed: 03/10/23 12:27 [id number] NoteCRM entered the room to discuss dc planning. PCP, DME and insurance discussed. Patient is alert andinvolved in plan of care. Contact information provided and whiteboard updated. CRM spoke to pt and mother about pink slip. Pt is agreeable to inpt psych stay. Pending [facility] eval and bed. Narka slip willexp at 2pm. SW is following up. Ant dc 03/10. CRM to follow. [facility] will facilitate transport.[facility] above:Result Comment: Electronically Signed By: Peyton Mccarty\.br\Date and Time Signed: 03/10/23 12:11 [id number] NoteChief Complaint I over dose of tylenol [...] deep vein thrombosis (DVT) prophylaxis (Z79.899: Other longwall headgate operator (current) drug therapy) Problem List/Past Medical History [...] 12/04/2021 Immunizations Vaccine Date Status SARS-CoV-2 (COVID-19) mRNAMUL.ORD![id number] 10/03/2022 Recorded (more content not included)...[facility]:Result Comment: Electronically Signed By: Mehdi SHER, Irene Villegas\.br\Date and Time Signed: 03/09/23 11:35 EDT\.br\Electronically Co-Signed By: Daniel Reaves DO\.br\Date and Time Co-Signed: 03/09/23 11:52 [id number] Note13:50: Nursing requested patient evaluation at bedside, [...] Dr. Lr aware, nursing to update Dr. Hosue 14:21: I returned to the room to [...] po bid. EEG ordered, [facility]: Result Comment: Electronically Signed By: ADELINE MARCANO, Akosua\.br\Date and Time Signed: 03/08/23 16:06 [id number] NoteChief Complaint patient c/o dizziness, lethargy and [...] 100 pills that are in the bottle. [place] very dizzy and sleepy was also having [...] 14:43:00) Lymph Auto: 28.7 % (03/07/23 14:43:00) [place] Auto: 8.6 % (03/07/23 14:43:00) Eos Auto: 1.9 % (03/07/23 14:43:00) Basophil Auto: 0.5 % (03/07/23 14:43:00) Neutro Absolute: 4.1 E9/L (03/07/23 14:43:00) Lymph Absolute: 2 E9/L (03/07/23 14:43:00) [place] Absolute: 0.6 E9/L (03/07/23 14:43:00) Eos Absolute: [...] (03/07/23 14:43:00) Bili I (more content not included)...[facility]:Result Comment: Electronically Signed By: DEBBIE MARCANO, Jennifer\.br\Date and Time Signed: 03/07/23 18:12 [id number] Hospital Discharge instructions Patient Education 11/13/2022 18:45:15 [...] emergency services (911 in the [place] The [facility] and human services helpline (211 in the [place] Go to your nearest emergency department. Call a suicide hotline to speak with a trained counselor. The following suicide hotlines are available in the [place]: ?5-744-533-TALK ( ). ?5-128-NVPJTFI ( ). ? . This is a hotline for Palauan speakers. ? . This is a hotline for TTY users. ?0-389-5-U-ELIZA ( ). This is a hotline for lesbian, schultz, bisexual, transgender, or questioning youth. ?For a list of hotlines in [place], visit www.suicide.org/hotlines/international/sgqlmk-gdoxamq-xkhnlyew.html Contact a crisis center or a local [...] day, even if you do notfeel sociable. Zgmi-ec-ejoe conversation is best to help them understand [...] day can help you feel better. Take mcsr-srj-yfalqlr and prescription medicines only as told by [...] National Suicide Prevention Lifeline: www.suicidepreventionlifeline.org Hopeline: www.hopeline.com [place] Foundation for Suicide Prevention: www.afsp.org The Eliza [...] away. Call emergency services, go to your nearestwestern state hospitalcy department or crisis center, or call [...] 2004 Document Revised: 11/10/2019 Document Reviewed: 03/02/2018 [employer] Patient Education 2020 [employer]into Follow Up Care 11/13/2022 13:37:26 With:[facility] Address:Unknown When:11/16/2022 18:44:48 Comments:Return should you have worsening symptoms or feel unsafe. Call 911 or mental health counseling at any time. With:Claudia Ellington Address: [address] [place], [place] [id number] Business (1) When:11/16/2022 18:44:44 Comments:Call the office [...] what your health care provider or the window glazier helper recommends for you. What are the signs [...] Follow these instructions at home: Medicines Take ihyq-hnx-pclxkey and prescription medicines only as told by your health care provider. Avoid any medicines that contain acetaminophen for as long as told by your health care provider. Todo this: ?Check all medicine labels for the presence of acetaminophen. Acetaminophen is found in many hhtc-bfe-fpqorsd and prescription medicines. These include medicines for [...] the hospital. Call: Your local emergency services (607 in the [place] Your local poison control [...] 05/04/2015 Document Revised: 02/18/2019 Document Reviewed: 02/18/2019 [employer] Patient Education 2020 Wedivite. Follow Up Care 10/10/2022 21:52:59 With:[facility] Address:Unknown When:10/14/2022 Comments:Please follow-up with your primary care doctor in addition to your counselor in the next 1 to 2 days. Return to the ED for any new or worsening symptoms. With:Claudia Ellington Address: [address] [place] [address] [place] [address]- Business (1) When:10/14/2022 [facility]03-10-2023 Evaluation + [...] right away. Call your local emergency services (561 in the [place].S.). Donot drive yourself to [...] your urine pale yellow. General instructions Take bqdf-yrv-xituhus and prescription medicines only as told by [...] right away. Call your local emergency services (251 in the [place].S[place] Do not drive yourself [...] 07/20/2006 Document Revised: 07/02/2018 Document Reviewed: 06/28/2018 [employer] Patient Education 2019 Flinto Follow Up Care 10/05/2022 23:50:01 With:Claudia Ellington Address: [address] [place], [place] [id number]- Business (1) When:Within 3 Day(s) [facility]12-07-2022 [...] until he or she recovers. Medicines Give tuae-jts-zjxxelv and prescription medicines only as told by [...] check with your local DMV (department of [place]) to find out about local driving laws. [...] Document Reviewed: 10/07/2019 Elsevier Patient Education 2019 Wedivite. Follow Up Care 07/08/2022 18:51:22 With:Claudia Ellington Address: [address] [place] [address] [place] [address] Business (1) When:07/11/2022 [facility]12-06-2022 Evaluation + [...] and regular daily exercise. Give your child tygs-dih-bnxnskb and prescription medicines only as told by [...] to find more information Epilepsy Foundation: www.epilepsy.com [place] Epilepsy Society: www.aesnet.org Contact a health care [...] 10/29/2017 Document Revised: 11/10/2019 Document Reviewed: 10/29/2017 [employer] Patient Education 2020 Wedivite. 07/04/2022 19:27:04 Non-Epileptic Seizures, Pediatric Non-Epileptic Seizures, [...] she has a seizure. Give your child sczw-qji-ldylmrt and prescription medicines only as told by [...] 10/26/2017 Document Revised: 07/02/2018 Document Reviewed: 10/26/2017 [employer] Patient Education 2020 Wedivite. Follow Up Care 07/04/2022 18:04:21 With:Joann Zamorano Address: [facility] [address] [place] [address]- Business (1) When:07/07/2022 19:23:00 With:Claudia Rakel Address: [address] [facility] [facility] [address] [place], [place] [id number]- Business (1) When:07/07/2022 19:22:49 Comments:Follow-up with your [...] she has a seizure. Give your child ruek-phy-jnpdvjv and prescription medicines only as told by [...] 10/26/2017 Document Revised: 07/02/2018 Document Reviewed: 10/26/2017 [employer] Patient Education 2020 Wedivite. 07/02/2022 16:03:45 Helping Your Child Manage Non-Epileptic [...] and regular daily exercise. Give your child ccry-bhm-wqqycnv and prescription medicines only as told by [...] to find more information Epilepsy Foundation: www.epilepsy.com [place] Epilepsy Society: www.aesnet.org Contact a health care [...] 10/29/2017 Document Revised: 11/10/2019 Document Reviewed: 10/29/2017 [employer] Patient Education 2020 Wedivite. Follow Up Care 07/02/2022 13:18:31 With:Joann Zamorano Address:Unknown When:07/05/2022 15:30:57 Comments:Follow-up with Dr. Zamorano for further evaluation of your seizure-like activity. With:Claudia Ellington Address: [address] [place] [address] Business (1) When:07/05/2022 15:30:49 Comments:Follow-up with your [...] 02/16/24 * CT Abdomen w/ Contrast 02/16/24 [facility] General Surgery [place] Evaluation noteNo assessment information available [facility] Work Phone: Evaluation note* Diagnosis Onset Date Resolution Status Depression acute Suicidal ideations acute [facility] Work Phone: Evaluation note* Diagnosis Macromastia- Primary Hypertrophy of breast Thoracic spine pain Pain in thoracic spine documented in this [facility] No data available for this section [facility] Additional Instructions Regular Diet [facility] Work Phone: Progress note No data [...] section and content) DATE CREATED AUTHOR 09/20/2018 [facility] DATE CREATED AUTHOR AUTHOR'S ORGANIZ ATION 10/27/2019 [employer] DATE CREATED AUTHOR AUTHOR'S ORGANIZ ATION 11/08/2022 [facility] DATE CREATED AUTHOR AUTHOR'S ORGANIZ ATION 03/11/2023 [facility] DATE CREATED AUTHOR AUTHOR'S ORGANIZ ATION 07/02/2023 [facility] DATE CREATED AUTHOR AUTHOR'S ORGANIZ ATION 01/13/2024 [facility] DATE CREATED AUTHOR AUTHOR'S ORGANIZ ATION 01/15/2024 [facility] DATE CREATED AUTHOR AUTHOR'S ORGANIZ ATION 01/16/2024 [facility] DATE CREATED AUTHOR AUTHOR'S ORGANIZ ATION 02/24/2024 [place] DATE CREATED AUTHOR AUTHOR'S ORGANIZ ATION 03/03/2024 [facility] DATE CREATED AUTHOR AUTHOR'S ORGANIZ ATION 03/04/2024 [facility] DATE CREATED AUTHOR AUTHOR'S ORGANIZ ATION 03/05/2024 [facility] DATE CREATED AUTHOR AUTHOR'S ORGANIZ ATION 03/09/2024 [facility] Care Team (unrecognized sect ion and content) Team Status: Inactive Member Role Status Dates Claudia Ellington MD Primary Care Provider, Attending Pr omer Active Team Status: Active Member Role Status Dates Claudia Ellington MD Primary Care Provider Active Team Status: Inactive Member Role Status Dates Claudia Ellington MD Primary Care Provider Active John Monson MD Admit Provider, Attending Provider Active Outdoor Studies Director Relationship Specialty Start Date End Date Claudia Ellington MD [address] [phone] PCP - General Family Medicine 06/10/23 Goals [...] PATIENT - Claudia Santacruz MD [address] [place] [address] Valorie Hansen MD [address] [place], [place] [id number] Referral ID Status Reason Start Date Expiration Date V isits Requested Visits Authorized [id number] Pending Review 06/30/2023 07/24/2024 1 1 FOR [...] BE BASED ON THE PRIMARY CLINICAL RECORDS. [facility] [employer] [facility]. provides no warranty or guarantee of the accuracy or completeness of information in this document.
--- NOTE | 2024-03-13 12:46 | ED.GENADUL1 ---
HPI HPI - General Adult General Chief complaint: Nausea/Vomiting/Diarrhea Stated complaint: FEVER, STOMACH ACHE Time Seen by Provider: 03/13/24 12:36 Source: patient Mode of arrival: walk-in Limitations: no limitations History of Present Illness HPI narrative: 18-year-old female presents for abdominal pain and nausea and vomiting. She states the abdominal pain started a month ago and she had a CAT scan and an ultrasound at another facility about a week ago. She threw up 6 times today. Related Data Home Medications ?Medication ?Instructions ?Recorded ?Confirmed cetirizine 10 mg tablet 10 mg PO DAILY 10/14/23 01/24/24 fluoxetine 40 mg capsule 40 mg PO DAILY 10/14/23 01/24/24 lurasidone 60 mg tablet 60 mg PO DAILY 10/14/23 01/24/24 melatonin 3 mg tablet 3 mg PO QPM 10/14/23 01/24/24 famotidine 10 mg tablet (Acid 10 mg PO BID PRN pain 01/24/24 01/24/24 Controller) hydrocodone 5 mg-acetaminophen 325 1 tab PO Q4H PRN pain 01/24/24 01/24/24 mg tablet lurasidone 40 mg tablet 40 mg PO DAILY 01/24/24 01/24/24 naproxen 500 mg tablet 500 mg PO BID PRN pain 01/24/24 01/24/24 norethindrone 1 mg-ethinyl 1 tab PO DAILY 01/24/24 01/24/24 estradiol 20 mcg (21)-iron 75 mg (7) tablet (Aurovela Fe 1-20 (28)) pantoprazole 40 mg tablet,delayed 40 mg PO DAILY 01/24/24 01/24/24 release Previous Rx's ?Medication ?Instructions ?Recorded ondansetron 4 mg disintegrating 4 mg PO Q6H PRN nausea and 03/13/24 tablet vomiting #20 tabs Allergies Allergy/AdvReac Type Severity Reaction Status Date / Time No Known Drug Allergies Allergy Verified 03/13/24 12:37 Opioid HPI Opioid Management Most Recent Opioid Data: Last ED Pain Assessment 03/13/24 12:58 Review of Systems ROS Narrative A ten point review of systems is negative except as noted above. PFSH PFSH Social History Smoking status: Never smoker Exam Narrative Exam Narrative: Nurses note and vital signs reviewed and patient is not hypoxic. General: The patient appears well and in no apparent distress. Patient is resting comfortably on cart. Skin: Warm, dry, no pallor noted. There is no rash noted. Head: Normocephalic, atraumatic Eye: Normal conjunctiva, no drainage Ears, Nose, Mouth, and Throat: oral mucosa is moist. Nares patent. Cardiovascular: Regular Rate and Rhythm Respiratory: Patient is in no distress, no accessory muscle use, lungs are clear to auscultation, no wheezing, rales or rhonchi Back: non-tender GI: Normal bowel sounds, mild diffuse tenderness, no distention or mass or guarding. Musculoskeletal: The patient has no evidence of calf tenderness, no pitting edema, symmetrical pulses noted bilaterally Neurological: A&O, normal speech Psychiatric: Cooperative Constitutional Vital Signs, click to edit/add: Last Vital Signs Temp 98.3 F 03/13/24 14:57 Pulse 68 03/13/24 14:57 Resp 18 03/13/24 14:57 BP 127/92 H 03/13/24 14:57 Pulse Ox 98 03/13/24 14:57 O2 Del Method Room Air 03/13/24 12:37 Course Vital Signs Vital signs: Vital Signs Temperature 98.3 F 03/13/24 12:37 Pulse Rate 82 03/13/24 12:37 Respiratory Rate 20 03/13/24 12:37 Blood Pressure 118/88 03/13/24 12:37 Pulse Oximetry 96 03/13/24 12:37 Oxygen Delivery Method Room Air 03/13/24 12:37 Temperature 98.3 F 03/13/24 14:57 Pulse Rate 68 03/13/24 14:57 Respiratory Rate 18 03/13/24 14:57 Blood Pressure 127/92 H 03/13/24 14:57 Pulse Oximetry 98 03/13/24 14:57 Oxygen Delivery Method Room Air 03/13/24 12:37 Medical Decision Making MDM Narrative Medical decision making narrative: Laboratory analysis is negative here. She is not . She had a CAT scan of her abdomen on March 03, 2010 days ago and it was negative and she had a gallbladder ultrasound on February 15 which also was normal. She was referred to a GI specialist and she will follow-up with him. Treatment diagnosis and follow-up were discussed with the patient Differential Diagnosis Differential Diagnosis: Nonspecific abdominal pain, , pancreatitis, UTI Medical Records Medical records reviewed: Yes I reviewed the patient's medical records Lab Data Lab results reviewed: Yes I reviewed the patient's lab results Labs: Lab Results 03/13/24 03/13/24 Range/Units 12:51 12:54 WBC 4.9 (4.0-11.0) 10^3/uL RBC 4.43 (4.20-5.40) 10^6/uL Hgb 12.3 (12.0-16.0) g/dL Hct 37.8 (36.0-48.0) % MCV 85.3 (81.0-99.0) fL MCH 27.8 (26.7-34.0) pg MCHC 32.5 (29.9-35.2) g/dL RDW 13.3 (11.0-15.0) % Plt Count 401 (150-450) 10^3/uL MPV 9.9 (9.5-13.5) fL Neut % (Auto) 38.9 L (43.0-75.0) % Lymph % (Auto) 50.0 (20.5-60.0) % [place] % (Auto) 8.0 (1.7-12.0) % Eos % (Auto) 2.3 (0.9-7.0) % Baso % (Auto) 0.6 (0.2-2.0) % Neut # (Auto) 1.9 (1.4-6.5) 10^3/uL Lymph # (Auto) 2.4 (1.2-3.8) 10^3/uL [place] # (Auto) 0.4 (0.3-0.8) 10^3/uL Eos # (Auto) 0.1 (0.0-0.7) 10^3/uL Baso # (Auto) 0.0 (0.0-0.1) 10^3/uL Abs Immat Gran (auto) 0.01 (0.00-0.03) 10^3/uL Imm/Tot Granulo (auto) 0.2 (0.0-0.5) % Sodium 141 (136-145) mmol/L Potassium 3.6 (3.5-5.1) mmol/L Chloride 105 (98-107) mmol/L Carbon Dioxide 28.0 (21.0-32.0) mmol/L Anion Gap 11.6 BUN 9.0 (6.4-19.3) mg/dL Creatinine 0.86 (0.55-1.02) mg/dL Est GFR ( Amer) >60 (>=60) Est GFR (Non-Af Amer) >60 (>=60) BUN/Creatinine Ratio 10.5 Glucose 93 (74-106) mg/dL Calcium 8.5 (8.5-10.1) mg/dL Total Bilirubin 0.3 (0.2-1.0) mg/dL Direct Bilirubin 0.1 (0.0-0.2) mg/dL AST 23 (15-37) U/L ALT 35 (14-59) U/L Alkaline Phosphatase 50 (46-116) U/L Total Protein 6.7 (6.4-8.2) g/dL Albumin 2.8 L (3.4-5.0) g/dL Globulin 3.9 g/dL Albumin/Globulin Ratio 0.7 Amylase 11 L (25-115) U/L Lipase 36.0 (16.0-77.0) U/L Serum HCG, Qual Negative (NEGATIVE) Urine Color Yellow (YELLOW) Urine Clarity Sl cloudy (CLEAR) Urine pH 6.0 (5.0-9.0) Ur Specific [place] >=1.030 A (1.005-1.025) Urine Protein Negative (NEG/TRACE) mg/dL Urine Glucose (UA) Negative (NEGATIVE) mg/dL Urine Ketones Negative (NEGATIVE) mg/dL Urine Occult Blood Moderate A (NEGATIVE) Urine Nitrite Negative (NEGATIVE) Urine Bilirubin Negative (NEGATIVE) Urine Urobilinogen 0.2 (0.2-1.0) EU/dL Ur Leukocyte Esterase Negative (NEGATIVE) Urine RBC 2-5 A (0-2) #/HPF Urine WBC None seen (NONE SEEN) #/HPF Ur Squamous Epith Cells Many A (NONE/RARE) #/LPF Urine Crystals None seen (None Seen) #/HPF Urine Bacteria Trace A (NONE SEEN) #/HPF Urine Casts None seen (NONE SEEN) #/LPF Urine Mucus Trace A (NONE SEEN) Ur Culture Indicated? No Discharge Plan Discharge Stand Alone Forms: Portal Instructions Chief Complaint: Nausea/Vomiting/Diarrhea Clinical Impression: Abdominal pain Patient Disposition: Home, Self-Care Time of Disposition Decision: 15:15 Condition: Good Mode of Transportation: Private Vehicle Prescriptions / Home Meds: New ondansetron 4 mg tablet,disintegrating 4 mg PO Q6H PRN (Reason: nausea and vomiting) Qty: 20 0RF No Action fluoxetine 40 mg capsule 40 mg PO DAILY cetirizine 10 mg tablet 10 mg PO DAILY melatonin 3 mg tablet 3 mg PO QPM lurasidone 60 mg tablet 60 mg PO DAILY famotidine [Acid Controller] 10 mg tablet 10 mg PO BID PRN (Reason: pain) hydrocodone-acetaminophen 5-325 mg tablet 1 tab PO Q4H PRN (Reason: pain) lurasidone 40 mg tablet 40 mg PO DAILY naproxen 500 mg tablet 500 mg PO BID PRN (Reason: pain) norethindrone-e.estradiol-iron [Aurovela Fe 1-20 (28)] 1 mg-20 mcg (21)/75 mg (7) tablet 1 tab PO DAILY pantoprazole 40 mg tablet,delayed release (DR/EC) 40 mg PO DAILY Print Language: Tajik Instructions: Abdominal Pain (ED) Referrals: Fredi Mcleod MD [Primary Care Provider] - 1 week
[2024-03-13] MEDS: 0.9 % SODIUM CHLORIDE 1,000 ML 1000 ML IV (13:03)
[2024-03-13] MEDS: ONDANSETRON PF 4 MG/2 ML VIAL IV (13:03)
[2024-03-13 13:10] LABS: Bilirubin Urine NEGATIVE (NEGATIVE); Blood Urine MODERATE (NEGATIVE); Clarity Urine SL CLOUDY (CLEAR); Color Urine YELLOW (YELLOW); Glucose Urine UA NEGATIVE (NEGATIVE); Ketones Urine NEGATIVE (NEGATIVE); Leukocyte Esterase Urine NEGATIVE (NEGATIVE); Nitrite Urine NEGATIVE (NEGATIVE); Protein Urine NEGATIVE (NEG/TRACE); Specific Gravity Urine >=1.030 (1.005-1.025); Urobilinogen Urine 0.2 EU/dL (0.2-1.0)
[2024-03-13 13:10] LABS: Basophils Percent Auto 0.6 % (0.2-2.0); Eosinophils Absolute Auto 0.1 10^3/uL (0.0-0.7); Eosinophils Percent Auto 2.3 % (0.9-7.0); Hematocrit 37.8 % (36.0-48.0); Hemoglobin 12.3 g/dL (12.0-16.0); Immature Granulocytes Abs Auto 0.01 10^3/uL (0.00-0.03); Immature Granulocytes Pct Auto 0.2 % (0.0-0.5); Lymphocytes Absolute Auto 2.4 10^3/uL (1.2-3.8); Mean Corpuscular HGB Conc 32.5 g/dL (29.9-35.2); Mean Corpuscular Hemoglobin 27.8 pg (26.7-34.0); Mean Corpuscular Volume 85.3 fL (81.0-99.0); Mean Platelet Volume 9.9 fL (9.5-13.5); Monocytes Absolute Auto 0.4 10^3/uL (0.3-0.8); Neutrophils Absolute Auto 1.9 10^3/uL (1.4-6.5); Neutrophils Percent Auto 38.9 % (43.0-75.0); Platelet Count 401 10^3/uL (150-450); Red Blood Count 4.43 10^6/uL (4.20-5.40); Red Cell Distribution Width 13.3 % (11.0-15.0); White Blood Count 4.9 10^3/uL (4.0-11.0)
[2024-03-13 13:18] LABS: Bacteria Urine TRACE #/HPF (NONE SEEN); Cast Seen? NONE SEEN #/LPF (NONE SEEN); Crystals Seen? None Seen #/HPF (None Seen); Mucus Urine TRACE (NONE SEEN); Squamous Epithelial Cell Urine MANY #/LPF (NONE/RARE); Urine Culture Indicated NO; WBC Urine NONE SEEN #/HPF (NONE SEEN)
[2024-03-13 13:20] LABS: HCG Qualitative NEGATIVE (NEGATIVE); Internal Control Within Normal Limits
[2024-03-13 13:29] LABS: Amylase 11 U/L (25-115); Bilirubin Direct 0.1 mg/dL (0.0-0.2)
[2024-03-13 13:30] LABS: Alanine Aminotransferase 35 U/L (14-59); Albumin Globulin Ratio 0.7; Albumin Level 2.8 g/dL (3.4-5.0); Alkaline Phosphatase 50 U/L (46-116); Anion Gap 11.6; Aspartate Amino Transferase 23 U/L (15-37); BUN Creatinine Ratio 10.5; Bilirubin Total 0.3 mg/dL (0.2-1.0); Calcium 8.5 mg/dL (8.5-10.1); Chloride 105 mmol/L (98-107); Estimated GFR (African America >60 (>=60); Estimated GFR (Non-African Ame >60 (>=60); Globulin 3.9 g/dL; Glucose 93 mg/dL (74-106); Potassium 3.6 mmol/L (3.5-5.1); Sodium 141 mmol/L (136-145); Total Protein 6.7 g/dL (6.4-8.2)
[2024-03-13 13:50] VITALS: BP 126/74; PULSE 74; O2SAT 98
[2024-03-13 14:57] VITALS: BP 127/92; PULSE 68; TEMP 36.8; O2SAT 98
== END 2024-03-13 15:21 | disposition home or self-care (01) ==
PROVIDERS: Emergency Provider Emergency Medicine; PCP Family Medicine
DX: R10.9 Unspecified abdominal pain (principal)
CPT/HCPCS: 36415; 80048; 80076; 81001; 82150; 83690; 84703; 85025; 96361; 96374; 99285; J2405

== ENCOUNTER 2024-03-19 11:09 | Emergency (ER) | payer OTHER, SELFPAY ==
[2024-03-19 11:13] VITALS: BP 128/88; PULSE 88; TEMP 37.2; O2SAT 94; BMI 39.8
--- OUTSIDE RECORDS SUMMARY | 2024-03-19 11:13 | XMS_ITS ---
Author Name Auto Generated Organization [facility] Care Team Providers Care Manager Programming Name Role Phone PEYTON QUIROZ Attending Unavailable Zenon Hernandez Attending Unavailable Zenon Hernandez Referring Unavailable Markus Cantor Attending Unavailable Refugio Bolaños Attending Unavailable Markus Whipple Attending Unavailable Bud, Astrpaul H Attending Unavailable Markus Whipple Attending Unavailable Bud, Astrit H Attending Unavailable Akosua ROSAS Admitting Unavailable Akosua ROSAS Attending Unavailable Melecio Rubio Consulting Unavailable PEYTON QUIROZ Referring Unavailable MD Melecio Rubio Consulting Unavailable Melecio Rubio Consulting Unavailable Melecio Rubio Consulting Unavailable Melecio Rubio Consulting Unavailable Melecio Rubio Consulting Unavailable Melecio Rubio Consulting Unavailable Melecio Rubio Consulting Unavailable Melecio Rubio Consulting Unavailable Zenon Hernandez Admitting Unavailable Zenon Hernandez Attending Unavailable Zenon Hernandez Referring Unavailable Markus Cantor Admitting Unavailable Markus Cantro Attending Unavailable Markus Cantor Referring Unavailable KEY, MISTY E Admitting Unavailable SCHULKERRY, MISTY E Attending Unavailable KEY, MISTY E Admitting Unavailable SCHULKERRY, MISTY E Attending Unavailable Refugio Bolaños Attending Unavailable Markus Whipple Attending Unavailable FREDI MCLEOD Referring Unavailable FREDI MCLEOD Primary Care Unavailable VALORIE MORLEY Attending Unavailable Robson White Admitting Unavailab Robson Aj Attending Unavailab Fredi Whitfield Primary Care Unavailable Peyton Quiroz Attending Unavailable Noel Stratton Admitting UnavailFredi Delgado Primary Care Unavailable PROBLEMS DATE TYPE CONDITION / CODE ATTENDING STATUS [place] RCE 01/28/2024 Admitting diagnosis Encounter fo r observation for other suspected diseases and conditions ruled out / Z03.89(ICD-10) NA [facility] PROCEDURES No Procedure Records Found RESULTS ED PATIENT EDUCATION NOTE Observed: 03/03 1:11 AM Status: F Source: [facility] REPOSITORY ED Patient Education Note Mental and Behavioral Health Suicidal Feelings: How to Help Yourself Suicide [...] (911 in the [place] ? Call the [facility] health and human services helpline (211 in the [place] ? Call or text a suicide hotline to speak with a trained counselor. The following suicide hotlines are available in the [place]: ? 4-966-272-TALK ( or 171 in the [place] ? 5-102-ZTCZJFI ( ). ? Text 762501. This is the Crisis Text Line in the [place] ? . This is a hotline for Stateless speakers. ? . This is a hotline for TTY users. ? 6-652-0-USOREN ( ). This is a hotline for lesbian, schultz, bisexual, transgender, or questioning youth. ? For a list of hotlines in [place], visit suicide.org/hotlines/international/kahmdy-pltvioc-cwcrjxxx.html ? Contact a crisis center or a local suicide prevention center. To find a crisis center or suicide prevention center: ? Call your local hospital, clinic, community service organization, mental health center, social service provider, or health department. Ask for help with connecting to a crisis center. ? For a list of crisis centers in the [place], visit: suicidepreventionlifeline.org ? For a list of crisis centers in [place], visit: suicideprevention.ca How to help yourself feel better ? Promise yourself that you will not do anything bad or extreme when you have suicidal feelings. Remember the times you have felt hopeful. ? Many people have gotten through suicidal thoughts and feelings, and you can too. ? If you have had these feelings before, remind yourself that you can get through them again. ? Let family, friends, teachers, or counselors know how you are feeling. Do not separate yourself from those who care about you and want to help you. ? Talk with someone every day, even if you do not feel like talking to anyone or being with other people. ? Ldpb-nh-ypgj conversation is best to help them understand your feelings. ? Contact a mental health care provider and work with this person regularly. ? Make a safety plan that you can follow during a crisis. ? Include phone numbers of suicide prevention hotlines, mental health professionals, and trusted friends and family members you can call during an emergency. ? Save these numbers on your phone. ? If you are thinking of taking a lot of medicine, give your medicine to someone who can give it to you as prescribed. ? If you are on antidepressants and are concerned you will overdose, tell your health care provider so that he or she can give you safer medicines. ? Try to stick to your routines and follow a schedule every day. Make self-care a priority. ? Make a list of realistic goals, and cross them off when you achieve them. Accomplishments can give you a sense of worth. ? Wait until you are feeling better before doing things that you find difficult or unpleasant. ? Do things that you have always enjoyed to take your mind off your feelings. ? Try reading a book, or listening to or playing music. ? Spending time outside, in nature, may help you feel better. Follow these instructions at home: ? Visit your primary health care provider every year for a physical and a mental health checkup. ? Take ewbj-unb-jajgyxi and prescription medicines only as told by your health care provider. ? Ask your health care provider about the possible side effects of any medicines you are taking. ? Ask your health care provider about whether suicidal ideation is a possible side effect of any of your medicines. ? Learn about suicidal ideation and what increases the risk for the development of suicidal thoughts. ? Eat a well-balanced diet, and eat regular meals. ? Get plenty of rest. ? Exercise if you are able. Just 30 minutes of exercise each day can help you feel better. ? Keep your living space well lit. ? Do not use alcohol or drugs. Remove these substances from your home. General recommendations ? Remove weapons, poisons, knives, and other deadly items from your home. ? Work with a mental health care provider as needed. ? When you are feeling well, write yourself a letter with tips and support that you can read when you are not feeling well. ? Remember that life's difficulties can be sorted out with help. Conditions can be treated, and you can learn behaviors and ways of thinking that will help you. ? Work with your health care provider or counselor to learn ways of coping with your thoughts and feelings. Where to find more information ? National Suicide Prevention Lifeline: www.suicidepreventionlifeline.org ? Hopeline: www.hopeline.com ? [place] Foundation for Suicide Prevention: www.afsp.org ? The Eliza Project (for lesbian, schultz, bisexual, transgender, or questioning youth): www.thetrevorproject.org ? National [place] of Mental Health: www.nimh.nih.gov/health/topics/suicide-prevention ? Suicide Prevention Resources: afsp.org/nvidjxj-tfcresyvdw-mhnremmfn Contact a health care provider if: ? You feel as though you are a burden to others. ? You feel agitated, angry, vengeful, or have extreme mood swings. ? You have withdrawn from family and friends. ? You are frequently using drugs or alcohol. Get help right away if: ? You are talking about suicide or wishing to . ? You start making plans for how to commit suicide. ? You feel that you have no reason to live. ? You start making plans for putting your affairs in order, saying goodbye, or giving your possessions away. ? You feel guilt, shame, or unbearable pain, and it seems like there is no way out. ? You are engaging in risky behaviors that could lead to . If you have any of these thoughts or symptoms, get help right away: ? Go to your nearest emergency department or crisis center. ? Call emergency services (911 in the [place] ? Call or text a suicide crisis helpline. Summary ? Suicide is when you take your own life. Suicidal feelings are thoughts about ending your own life. ? Promise yourself that you will not do anything bad or extreme when you have suicidal feelings. ? Let family, friends, teachers, or counselors know how you are feeling. ? Get help right away if you start making plans for how to commit suicide. This information is not intended to replace advice given to you by your health care provider. Make sure you discuss any questions you have with your health care provider. Document Revised: 02/13/2022 Document Reviewed: 11/28/2021 [employer] Patient Education ? 2022 [employer]. ED PATIENT SUMMARY Observed: 03/15/2024 1:11 AM Status: F Source: [facility] REPOSITORY ED Patient Summary [place] [id number] Patient Discharge Instructions Person Information Name: ROSE MARY SCHNEIDER Age: 18 Years Arrival Date: 03/14/2024 21:06:23 Discharge Diagnosis: Ibuprofen overdose Primary Care Physician: Fredi Mcleod MD Provider Information Primary Provider: Refugio Bolaños DO Advanced Ice Cream Dispenser:None The exam and treatment you received in the Emergency Department were for an urgent problem and are not intended as complete care. It is important that you follow up with a doctor, nurse practitioner, or physician?s assistant professor of criminal justice for ongoing care. If your symptoms become worse or you do not improve as expected and you are unable to reach your usual health care provider, you should return to the Emergency Department. We are available 24 hours a day. JENNIE ROSE MARY R has been given the following list of patient education materials, prescriptions and follow-up instructions: Follow-up Instructions: With: Address: When: [facility] In 1 day 03/16/2024 With: Address: When: Fredi Mcleod [facility] [facility], [address] [place] [id number] Business (1) In 3 days In the event that this physician does not participate in your insurance network, please consult with your insurance company to find a nearby participating provider. Patient Education Materials: Suicidal Feelings: How to Help Yourself A MESSAGE TO ALL PATIENTS REGARDING OPIOIDS PRESCRIPTION OPIOIDS: WHAT YOU NEED TO KNOW Prescription opioids can be used to help relieve hvgpvnfo-ay-wnsrhf pain and are often prescribed following a [...] unused prescription opioids: Find your community drug take- back program or your pharmacy mail-back program, or flush them down the toilet, following guidance from the Food and Drug Administration (www.fda.gov/Drugs/ResourcesForYou). ? Visit www.cdc.gov/drugoverdose to learn about the risks of opioids abuse and overdose. ? If you believe you may be struggling with addiction, tell your health long term care social worker and ask for guidance or call SAMHSA?S National Helpline at 2-630-506-ZKFK. v Source: US Department of Health and Human Services/Center for Disease Control & Prevention [facility] Medications Given: Medication Dose Route No medications found. Medication Information: Medications to Continue with No Changes Other Medications acetaminophen-hydrocodone ([place] 325 mg-5 mg oral tablet) 1 Tablets By Mouth every 6 hours as needed for pain. 1 to 2 tabs every 4 to 6 hours as needed for pain. Refills: 0. APAP/butalbital/caffeine (APAP/butalbital/caffeine 325 mg-50 mg-40 mg Tab) 1 Tablets By Mouth every 4 hours as needed for headache. Refills: 0. cetirizine (cetirizine 5 mg oral tablet) 2 Tablets By Mouth every day. clonidine (cloNIDine 0.1 mg tab) 1 Tablets By Mouth every day. famotidine (Pepcid AC 10 mg oral tablet) 1 Tablets By Mouth 2 times a day as needed Pain. Refills: 0. ondansetron (Zofran ODT 4 mg Tab-Dis) 1 Tablets By Mouth every 8 hours as needed Nausea/Vomiting. Refills: 0. pantoprazole (Protonix 40 mg tablet) Comment: Pharmacy Information: Patient Portal You may access all of your results and other medical record information on our secure patient portal. If you are not signed up for this yet, please contact [employer] at [phone] to get signed up today. SONJA Award Nomination The SONJA (Diseases Attacking the Immune SYstem) Award is an international recognition program that honors and celebrates the skillful, compassionate care nurses provide every day. Anyone who experiences or observes amazing care being provided by a nurse is encouraged to submit a nomination. To nominate your nurse, use your smart phone to scan the QR code below. You may receive a survey from José Miguel Matthew asking you to rate your care experience. Your feedback is important and will help us understand what we do well and how we can improve the quality of care we provide to you, your loved ones and our community. It?s an honor to serve you. Thank you for choosing [facility] Patient Education Materials: Suicidal Feelings: How to Help Yourself Suicide [...] (911 in the [place] ? Call the [facility] helpline (211 in the [place] ? Call or text a suicide hotline to speak with a trained counselor. The following suicide hotlines are available in the [place]: ? 7-892-757-TALK ( or 104 in the [place] ? 0-352-VMZVLQI ( ). ? Text 438925. This is the Crisis Text Line in the [place] ? . This is a hotline for Stateless speakers. ? . This is a hotline for TTY users. ? 3-045-4-U-ELIZA ( ). This is a hotline for lesbian, schultz, bisexual, transgender, or questioning youth. ? For a list of hotlines in [place], visit suicide.org/hotlines/international/dadveo-zfqmlvd-evkvycjg.html ? Contact a crisis center or a local suicide prevention center. To find a crisis center or suicide prevention center: ? Call your local hospital, clinic, community service organization, mental health center, social service provider, or health department. Ask for help with connecting to a crisis center. ? For a list of crisis centers in the [place], visit: suicidepreventionlifeline.org ? For a list of crisis centers in [place], visit: suicideprevention.ca How to help yourself feel better ? Promise yourself that you will not do anything bad or extreme when you have suicidal feelings. Remember the times you have felt hopeful. ? Many people have gotten through suicidal thoughts and feelings, and you can too. ? If you have had these feelings before, remind yourself that you can get through them again. ? Let family, friends, teachers, or counselors know how you are feeling. Do not separate yourself from those who care about you and want to help you. ? Talk with someone every day, even if you do not feel like talking to anyone or being with other people. ? Cdlz-cb-hiil conversation is best to help them understand your feelings. ? Contact a mental health care provider and work with this person regularly. ? Make a safety plan that you can follow during a crisis. ? Include phone numbers of suicide prevention hotlines, mental health professionals, and trusted friends and family members you can call during an emergency. ? Save these numbers on your phone. ? If you are thinking of taking a lot of medicine, give your medicine to someone who can give it to you as prescribed. ? If you are on antidepressants and are concerned you will overdose, tell your health care provider so that he or she can give you safer medicines. ? Try to stick to your routines and follow a schedule every day. Make self-care a priority. ? Make a list of realistic goals, and cross them off when you achieve them. Accomplishments can give you a sense of worth. ? Wait until you are feeling better before doing things that you find difficult or unpleasant. ? Do things that you have always enjoyed to take your mind off your feelings. ? Try reading a book, or listening to or playing music. ? Spending time outside, in nature, may help you feel better. Follow these instructions at home: ? Visit your primary health care provider every year for a physical and a mental health checkup. ? Take eizj-vkx-gelmsrr and prescription medicines only as told by your health care provider. ? Ask your health care provider about the possible side effects of any medicines you are taking. ? Ask your health care provider about whether suicidal ideation is a possible side effect of any of your medicines. ? Learn about suicidal ideation and what increases the risk for the development of suicidal thoughts. ? Eat a well-balanced diet, and eat regular meals. ? Get plenty of rest. ? Exercise if you are able. Just 30 minutes of exercise each day can help you feel better. ? Keep your living space well lit. ? Do not use alcohol or drugs. Remove these substances from your home. General recommendations ? Remove weapons, poisons, knives, and other deadly items from your home. ? Work with a mental health care provider as needed. ? When you are feeling well, write yourself a letter with tips and support that you can read when you are not feeling well. ? Remember that life's difficulties can be sorted out with help. Conditions can be treated, and you can learn behaviors and ways of thinking that will help you. ? Work with your health care provider or counselor to learn ways of coping with your thoughts and feelings. Where to find more information ? National Suicide Prevention Lifeline: www.suicidepreventionlifeline.org ? Hopeline: www.hopeline.com ? [place] Foundation for Suicide Prevention: www.afsp.org ? The Eliza Project (for lesbian, schultz, bisexual, transgender, or questioning youth): www.thePathfirevorproject.org ? National [place] of Mental Health: www.nimh.nih.gov/health/topics/suicide-prevention ? Suicide Prevention Resources: afsp.org/acrgcgr-khxkjowcsk-feywusznh Contact a health care provider if: ? You feel as though you are a burden to others. ? You feel agitated, angry, vengeful, or have extreme mood swings. ? You have withdrawn from family and friends. ? You are frequently using drugs or alcohol. Get help right away if: ? You are talking about suicide or wishing to . ? You start making plans for how to commit suicide. ? You feel that you have no reason to live. ? You start making plans for putting your affairs in order, saying goodbye, or giving your possessions away. ? You feel guilt, shame, or unbearable pain, and it seems like there is no way out. ? You are engaging in risky behaviors that could lead to . If you have any of these thoughts or symptoms, get help right away: ? Go to your nearest emergency department or crisis center. ? Call emergency services (911 in the [place] ? Call or text a suicide crisis helpline. Summary ? Suicide is when you take your own life. Suicidal feelings are thoughts about ending your own life. ? Promise yourself that you will not do anything bad or extreme when you have suicidal feelings. ? Let family, friends, teachers, or counselors know how you are feeling. ? Get help right away if you start making plans for how to commit suicide. This information is not intended to replace advice given to you by your health care provider. Make sure you discuss any questions you have with your health care provider. Document Revised: 02/13/2022 Document Reviewed: 11/28/2021 [employer] Patient Education ? 2022 [employer] I, ROSE MARY SCHNEIDER , have received the following patient education materials/instructions and have verbalized understanding: Patient Education Materials: Suicidal Feelings: How to Help Yourself Follow-up Instructions: With: Address: When: [facility] In 1 day 03/16/2024 With: Address: When: Fredi Mcleod [address] [place] [address], [facility] [place] [address] Business (1) In 3 days Patient Signature Date Clinician/Nurse Signature Date 03/15/2024 01:11:01 ED CLINICAL SUMMARY Observed: 03/15/2024 1:11 AM Status: F Source: [facility] REPOSITORY ED Clinical Summary [address] [address] ED Clinical Summary Person Information Name: ROSE MARY SCHNEIDER [facility] Age: 18 Years : 2005 Sex: Female Language: Khmer PCP: Fredi Mcleod MD Marital Status: Single Visit Id: Visit Reason: Medication overdose; Suicidal ideation; MENTAL HEALTH EVAL Speciality: Acuity: 2 Enc Type: Emergency Med Service: Emergency Arrival: 03/14/2024 21:06:23 Discharge: 03/15/2024 01:10:52 LOS: 000 04:04 Checkin: 03/14/2024 21:06:23 Checkout: 03/15/2024 01:10:52 Dispo Type: Home (Routine DC) EVENTS: Event Name Event Status Request Date/Time Start Date/Time Complete Date/Time Arrive Complete 03/14/2024 21:06:23 03/14/2024 21:06:23 03/14/2024 21:06:23 Document Home Meds Request 03/14/2024 21:06:23 Triage Complete 03/14/2024 21:06:23 03/14/2024 21:44:07 03/14/2024 21:44:07 Bed Assign Complete 03/14/2024 21:46:08 03/14/2024 21:46:08 03/14/2024 21:46:08 Dr Exam Complete 03/14/2024 21:46:08 03/14/2024 21:47:17 03/14/2024 21:47:17 RN Exam Complete 03/14/2024 21:46:08 03/14/2024 22:38:08 03/14/2024 22:38:08 Registration Complete 03/14/2024 21:47:17 03/14/2024 21:48:30 03/14/2024 21:48:30 Reg Complete Request 03/14/2024 21:48:30 Reg Bed Request Complete 03/14/2024 21:48:30 03/14/2024 21:48:30 03/14/2024 21:48:30 EKG Complete 03/14/2024 21:51:20 03/14/2024 21:57:23 Consult Request 03/14/2024 21:51:33 Pending Labs Complete 03/14/2024 21:51:33 03/14/2024 22:57:34 Lab Complete 03/14/2024 21:51:33 03/14/2024 22:57:34 Urine Collect Complete 03/14/2024 21:51:33 03/14/2024 22:57:34 Patient Care Request 03/14/2024 21:51:33 Pending Labs Complete 03/14/2024 22:10:15 03/14/2024 22:10:15 03/14/2024 22:49:51 Lab Complete 03/14/2024 22:10:15 03/14/2024 22:10:15 03/14/2024 22:49:51 Pending Labs Complete 03/14/2024 22:11:14 03/14/2024 22:11:14 03/14/2024 22:34:28 Lab Complete 03/14/2024 22:11:14 03/14/2024 22:11:14 03/14/2024 22:34:28 Pending Labs Inlab 03/14/2024 22:56:32 03/14/2024 22:56:32 Lab Inlab 03/14/2024 22:56:32 03/14/2024 22:56:32 Discharge Complete 03/15/2024 00:56:19 03/15/2024 01:10:59 03/15/2024 01:10:59 Transfer Complete 03/15/2024 01:10:59 03/15/2024 01:10:59 03/15/2024 01:10:59 ADDRESS: [address] [place] [id number] [facility] DOC NOTES: MEDICAL INFORMATION: Prescriptions Given: Medications to Continue with No Changes Other Medications acetaminophen-hydrocodone ([place] 325 mg-5 mg oral tablet) 1 Tablets By Mouth every 6 hours as needed for pain. 1 to 2 tabs every 4 to 6 hours as needed for pain. Refills: 0. APAP/butalbital/caffeine (APAP/butalbital/caffeine 325 mg-50 mg-40 mg Tab) 1 Tablets By Mouth every 4 hours as needed for headache. Refills: 0. cetirizine (cetirizine 5 mg oral tablet) 2 Tablets By Mouth every day. clonidine (cloNIDine 0.1 mg tab) 1 Tablets By Mouth every day. famotidine (Pepcid AC 10 mg oral tablet) 1 Tablets By Mouth 2 times a day as needed Pain. Refills: 0. ondansetron (Zofran ODT 4 mg Tab-Dis) 1 Tablets By Mouth every 8 hours as needed Nausea/Vomiting. Refills: 0. pantoprazole (Protonix 40 mg tablet) PATIENT EDUCATION INFORMATION: Instructions: Suicidal Feelings: How to Help Yourself Follow up: With: Address: When: [facility] In 1 day 03/16/2024 With: Address: When: Fredi Mcleod [address] [facility] [place] [address] Business (1) In 3 days DIAGNOSIS: Ibuprofen overdose C URINE Observed: 03/14/2024 10:22 PM Status: F Source: [facility] REPOSITORY Microbiology PROCEDURE: Urine Culture [R1] SOURCE: U CleanCatch BODY SITE: COLLECTED DATE/TIME: 03/14/2024 22:22 EDT RECEIVED DATE/TIME: 03/14/2024 23:41 EDT START DATE/TIME: 03/14/2024 23:41 EDT FREE TEXT SOURCE: Refugio Bolaños DO, DO, Noah S. FINAL REPORTS Final Report [] Verified Date/Time: 03/16/2024 09:28 EDT 1,000 cfu/ml Mixed skin contaminants Performing Locations R1: This test was performed at: [facility], [address] [place] [address], [address] [place] [address], Performed By: #### [id number] # ### [facility] [address] [place] [address] UA WITH CULT RFLX Collected: 10:22 PM Status: F Source: [facility] REPOSITORY TYPE CODE TESTS RESULT OUT OF RANGE REFERENCE UNITS LAB [id number]([facility]) CLASS:TYPE:PT :URINE COLLECTION METHOD:NOM:* Clean Catch Normal LAB [id number]([facility] ) COLOR:TYPE:PT :URINE:NOM:AU TO Light-Yellow Normal Yellow Result Comment: Microscopic readings are only performed on those samples that meet specific criteria set forth by [facility]. LAB 72840-8([facility] ) CLARITY:TYPE: PT:URINE:NOM: Clear Normal Clear LAB 5811-5([facility]) SPECIFIC GRAVITY:RDEN: PT:URINE:SEMI QN:TEST STRIP 1.036 Unknown 1.005-1.030 LAB 5803-2([facility]) PH:LSCNC:PT:U RINE:SEMIQN:T EST STRIP 6.0 Unknown 5.0-9.0 LAB 84632-4(LOINC ) PROTEIN:PRTHR :PT:URINE:ORD :TEST STRIP Trace Abnormal Negative mg/dL LAB 03717-7(LOINC ) GLUCOSE:PRTHR :PT:URINE:ORD :TEST STRIP Negative Normal Negative mg/dL LAB 45147-3(LOINC ) KETONES:PRTHR :PT:URINE:ORD :TEST STRIP.AUTOMAT ED 1+ Abnormal Negative mg/dL LAB 94882-7(LOINC ) BILIRUBIN:PRT HR:PT:URINE:O RD:TEST STRIP.AUTOMAT ED Negative Normal Negative mg/dL LAB 90615-6(LOINC ) HEMOGLOBIN:MC NC:PT:URINE:S EMIQN:TEST STRIP.AUTOMAT ED Negative Normal Negative LAB 76070-3(LOINC ) NITRITE:PRTHR :PT:URINE:ORD :TEST STRIP.AUTOMAT ED Negative Normal Negative mg/dL LAB 76213-3(LOINC ) UROBILINOGEN: MCNC:PT:URINE :SEMIQN:TEST STRIP Negative Normal Negative mg/dL LAB 97873-6(LOINC ) LEUKOCYTE ESTERASE:PRTH R:PT:URINE:OR D:TEST STRIP.AUTOMAT ED 75 Uzair/uL Abnormal Negative LAB 96968-3(LOINC ) LEUKOCYTES:NA EPHRAIM:PT:URINE SED:QN:AUTOMA ULYSSES COUNT 0-5 Normal 0-5 CD:[id number] [id number] LAB 81298-5(LOINC ) ERYTHROCYTES: PRTHR:PT:URIN E SED:ORD:MICRO SCOPY.LIGHT 0-3 Normal 0-3 CD:23539 75580 LAB 85574-8(LOINC ) EPITHELIAL CELLS.SQUAMOU S:NARIC:PT:UR INE SED:QN:AUTOMA ULYSSES COUNT 5-8 Unknown CD:40569 34801 LAB 43758-9(LOINC ) MUCUS:PRTHR:P T:URINE:ORD:A UTOMATED Negative Normal Negative LAB 64819-4(LOINC ) HYALINE CASTS:PRTHR:P T:URINE SED:ORD:MICRO SCOPY.LIGHT 0-3 Normal 0-3 CD:31585 20087 Performed By: #### [id number] #### [facility] [address] [place] [address] U DRUG SCREEN Collected: 4 10:22 PM Status: F Source: [facility] REPOSITORY TYPE CODE TESTS RESULT OUT OF RANGE REFERENCE UNITS LAB 46457-1([facility]) AMPHETAMINES: PRTHR:PT:URIN E:ORD:SCREEN> 1000 NG/ML NEGATIVE Normal NEGATIVE Result Comment: Negative Cut off: <1000 ng/mL LAB 79280-0([facility]) BARBITURATES: PRTHR:PT:URIN E:ORD:SCREEN NEGATIVE Normal NEGATIVE Result Comment: Negative Cut off: <200 ng/mL LAB 93864-6(INC) BENZODIAZEPIN ES:PRTHR:PT:U RINE:ORD:SCRE EN NEGATIVE Normal NEGATIVE Result Comment: Negative Cut off: <200 ng/mL LAB 39187-4([facility]) CANNABINOIDS: PRTHR:PT:URIN E:ORD:SCREEN NEGATIVE Normal NEGATIVE Result Comment: Negative Cut off: <50 ng/mL LAB 3397-7([facility]) COCAINE:PRTHR :PT:URINE:ORD : NEGATIVE Normal NEGATIVE Result Comment: Negative Cut off: <300 ng/mL LAB 74027-6([facility]) OPIATES:PRTHR :PT:URINE:ORD :SCREEN NEGATIVE Normal NEGATIVE Result Comment: Negative Cut off: <300 ng/mL LAB 39684-0([facility]) PHENCYCLIDINE :PRTHR:PT:URI NE:ORD:SCREEN >25 NG/ML NEGATIVE Normal NEGATIVE Result Comment: Negative Cut off: <25 ng/mL These drug screen results are to be used for medical (i.e., treatment) purposes only. Unconfirmed drug screening results must not be used for non-medical purposes (e.g., employment testing, legal testing). LAB CD:[id number](L OINC) U Fentanyl NEGATIVE Normal NEGATIVE Result Comment: Negative Cut off: <5 ng/mL These drug screen results are to be used for medical (i.e., treatment) purposes only. Unconfirmed drug screening results must not be used for non-medical purposes (e.g., employment testing, legal testing). Performed By: #### [id number] # ### [facility] [address] [place] [address] U BETAHCG QUAL Collected: 4 10:22 PM Status: F Source: [facility] REPOSITORY TYPE CODE TESTS RESULT OUT OF RANGE REFERENCE UNITS LAB 2114-7([facility]) CHORIOGONADO TROPIN.BETA SUBUNIT:SCNC :PT:URINE:QN : Negative Normal Performed By: #### [id number] #### [facility] [address] [place] [address] ED NOTE-PHYSICIAN Observed: 03/14/2024 10:08 PM Status: F Source: [facility] REPOSITORY ED Note-Physician Basic Information Time Seen: Refugio Bolaños DOLaurita 03/14/2024 21:47 Chief Complaint Took bottle of ibuprofen at 1915. 50 tabs of 200 mg tabs. States suicidal. States some ABD pain. History of Present Illness HPI: Patient is a 18-year-old female with past medical history of seizures and pancreatitis who presents the ED for suicide attempt. Patient states that at 1950 tonight she took 50 odna-aex-lzhxzty ibuprofen of the 200 mg strength. She states that she did not attempt to kill herself. She has had suicide attempts in the past. She denies any Co. ingestion. She has some mild upper abdominal discomfort but denies any other symptoms at this time. ROS: Pertinent review of systems conducted and is negative except as noted above. Physical exam: General: nontoxic appearing and in no distress HEENT: Mucous membranes moist Neuro: awake and alert Neck: supple, trachea midline Card: Heart regular rate and rhythm no murmur Resp: Lungs clear to auscultation no wheeze or rhonchi Abd: Soft and nondistended. No tenderness to palpation with no rebound or guarding. Ext: No gross deformity or edema Psych: Admits to suicidal ideation, denies homicidal ideation or hallucinations. Physical Exam Vitals & Measurements T: 36.6 ?C(Oral) HR: 92(Peripheral) RR: 16 BP: 123/76 SpO2: 97% HT: 170.1 cm WT: 117.3 kg BMI: 40.54 Medical Decision Making MEDICAL DECISION MAKING Number and Complexity of Problems Differential Diagnosis: [] [facility] Data External documents reviewed: N/A My EKG interpretation: Noted in chart if applicable My CT interpretation: N/A My X-ray interpretation: Noted in chart if applicable My Ultrasound interpretation: N/A Decision rules/scores evaluated: N/A Discussed with: N/A Treatment and Disposition ED Course: Is nontoxic-appearing no distress. She did admit to taking ibuprofen suicide attempt tonight. Poison control was contacted and initial toxicology workup was obtained. Initial workup is as noted. Poison control recommended observation of the patient until 0 100. Patient was evaluated by [facility] and after speaking with the patient and mother they are in agreement with the plan of safety plan of the patient with outpatient follow- up with for psychiatry. Patient remained stable here in the ED. Patient was discharged in the care of her mother. Shared decision making: As above Code status: N/A Assessment/Plan Ibuprofen overdose (T39.311A: Poisoning by propionic acid derivatives, accidental (unintentional), initial encounter) Orders: Acetaminophen Level CBC w/ Auto Diff Communication Order Comprehensive Metabolic Panel Consult to Mental Health Drug Screen Urine ECG 12 Lead Adult eGFR Ethanol Level Salicylate Level U Beta Hcg Qual UA with Cult Rflx Urine Culture Disposition Plan Discharge Prescription List Prescriptions No active prescription medications Follow-up With When Contact Information [facility] In 1 day 03/16/2024 EDT Additional Instructions: Fredi Mcleod In 3 days [address] [facility] [place] [id number]- [facility] (1) Additional Instructions: Patient Education Suicidal Feelings: How to Help Yourself Problem List/Past Medical History Ongoing Acute pancreatitis BMI 40.0-44.9, adult Family history of pancreatitis Gastroenteritis Injury of head Insomnia Obesity due to excess calories Right upper quadrant pain Smoker Historical Seizure Procedure/Surgical History Myringotomy and drainage of middle ear. Medications Inpatient No active inpatient medications Home APAP/butalbital/caffeine 325 mg-50 mg-40 mg Tab, 1 tab(s), Oral, q4hr, PRN cetirizine 5 mg oral tablet, 10 mg= 2 tab(s), Oral, Daily cloNIDine 0.1 mg tab, 0.1 mg= 1 tab(s), Oral, Daily FLUoxetine 40 mg Cap Junel Fe 08/22 oral tablet lurasidone 60 mg oral tablet melatonin-pyridoxine 3 mg-10 mg oral tablet, extended release [place] 325 mg-5 mg oral tablet, 1 tab(s), Oral, q6hr, PRN Pepcid AC 10 mg oral tablet, 10 mg= 1 tab(s), Oral, BID, PRN Protonix 40 mg tablet Zofran ODT 4 mg Tab-Dis, 4 mg= 1 tab(s), Oral, q8hr, PRN Allergies No Known Allergies Social History Alcohol Substance Abuse Tobacco Never (less than 100 in lifetime) Tobacco Use:., 02/09/2024 Family History Family history is negative Lab Results WBC: 6.4 E9/L (03/14/24 22:04:00) RBC: 4.2 E12/L Low (03/14/24 22:04:00) HGB: 12.2 gm/dL (03/14/24 22:04:00) Hct: 35.4 % (03/14/24 22:04:00) MCV: 83.5 fL (03/14/24 22:04:00) MCH: 28.7 pg (03/14/24 22:04:00) MCHC: 34.3 gm/dL (03/14/24 22:04:00) RDW: 13.8 % (03/14/24 22:04:00) Platelet: 404 E9/L (03/14/24 22:04:00) MPV: 7.4 fL (03/14/24 22:04:00) Neutro Auto: 35.5 % Low (03/14/24 22:04:00) Lymph Auto: 52.2 % High (03/14/24 22:04:00) Fulton Auto: 9.6 % (03/14/24 22:04:00) Eos Auto: 2.3 % (03/14/24 22:04:00) Basophil Auto: 0.4 % (03/14/24 22:04:00) Neutro Absolute: 2.3 E9/L (03/14/24 22:04:00) Lymph Absolute: 3.4 E9/L (03/14/24 22:04:00) Fulton Absolute: 0.6 E9/L (03/14/24 22:04:00) Eos Absolute: 0.2 E9/L (03/14/24 22:04:00) Basophil Absolute: 0 E9/L (03/14/24 22:04:00) Glucose Lvl: 86 mg/dL (03/14/24 22:04:00) BUN: 8 mg/dL (03/14/24 22:04:00) Creatinine: 0.8 mg/dL (03/14/24 22:04:00) eGFR: 109 mL/min/1.73 m2 (03/14/24 22:04:00) BUN/Creat Ratio: 10 (03/14/24 22:04:00) Sodium Lvl: 138 mmol/L (03/14/24 22:04:00) Potassium Lvl: 3.7 mmol/L (03/14/24 22:04:00) Chloride: 104 mmol/L (03/14/24 22:04:00) CO2: 25 mmol/L (03/14/24 22:04:00) AGAP: 13 mEq/L (03/14/24 22:04:00) Calcium Lvl: 8.5 mg/dL Low (03/14/24 22:04:00) Alk Phos: 37 Int._Unit/L (03/14/24 22:04:00) ALT: 19 Int._Unit/L (03/14/24 22:04:00) AST: 18 Int._Unit/L (03/14/24 22:04:00) Total Protein: 6.5 gm/dL (03/14/24 22:04:00) Albumin Lvl: 3.5 gm/dL (03/14/24 22:04:00) Globulin: 3 gm/dL (03/14/24 22:04:00) A/G Ratio: 1.2 (03/14/24 22:04:00) Bili Total: 0.2 mg/dL (03/14/24 22:04:00) Acetaminoph Lvl: <.1 Low (03/14/24 22:04:00) Salicylate Lvl: <2 Low (03/14/24 22:04:00) U Amph Scr: NEGATIVE (03/14/24 22:22:00) U Domonique Scr: NEGATIVE (03/14/24 22:22:00) U Benzodia Scr: NEGATIVE (03/14/24 22:22:00) U Cannab Scr: NEGATIVE (03/14/24 22:22:00) U Cocaine Scr: NEGATIVE (03/14/24 22:22:00) U Opiate Scr: NEGATIVE (03/14/24 22:22:00) U PCP Scr: NEGATIVE (03/14/24 22:22:00) U Fentanyl: NEGATIVE (03/14/24 22:22:00) Ethanol Lvl: <10 (03/14/24 22:04:00) UA Spec Desc: Clean Catch (03/14/24 22:22:00) UA Color: Light-Yellow (03/14/24 22:22:00) UA Clarity: Clear (03/14/24 22:22:00) UA Spec Grav: 1.036 (03/14/24 22:22:00) UA pH: 6.0 (03/14/24 22:22:00) UA Protein: Trace Abnormal (03/14/24 22:22:00) UA Glucose: Negat (03/14/24 22:22:00) UA Ketones: 1+ Abnormal (03/14/24 22:22:00) UA Bili: Negat (03/14/24 22:22:00) UA Blood: Negat (03/14/24 22:22:00) UA Nitrite: Negat (03/14/24 22:22:00) UA Urobilinogen: Negat (03/14/24 22:22:00) UA Leuk Est: 75 Uzair/uL Abnormal (03/14/24 22:22:00) UA RBC: 0-3 (03/14/24 22:22:00) UA Squam Epithelial: 5-8 (03/14/24 22:22:00) UA WBC: 0-5 (03/14/24 22:22:00) UA Hyal Cast: 0-3 (03/14/24 22:22:00) UA Mucous: Negat (03/14/24 22:22:00) U beta hCG Ql: Negative (03/14/24 22:22:00) Diagnostic Results No qualifying data available. EKG Results EC03/15/24: SINUS RHYTHM NORMAL ECG Signed By: Refugio Bolaños DO 03/14/2024 21:59:48 Result Comment: Electronical ly Signed By: Refugio Bolaños DO\.br\Date and Time Signed: 03/15/24 00:56 EDT EGFR Collected: 4 10:04 PM Status: F Source: [facility] REPOSITORY Order Comment: Order added b y Discern Expert. TYPE CODE TESTS RESULT OUT OF RANGE REFERENCE UNITS LAB [id number](LOINC) eGFR 109 Normal >=59 mL/min/1 . 73 m2 Performed By: #### [id number] #### [facility] [address] [place] [address] CBC W/ AUTO DIFF Collected: 03/14/2024 10:04 PM Stat us: F Source: [facility] REPOSITORY TYPE CODE TESTS RESULT OUT OF RANGE REFERENCE UNITS LAB 30836-8([facility]) LEUKOCYTES^^SID ECTED FOR NUCLEATED ERYTHROCYTES:NCN C:PT:BLD:QN:AUTO MATED COUNT 6.4 Normal 4.0-11.0 E9/L LAB 789-8(LOINC) ERYTHROCYTES:NCN C:PT:BLD:QN:AUTO MATED COUNT 4.2 Low 4.3-5.9 E12/L LAB 718-7(INC) HEMOGLOBIN:MCNC: PT:BLD:QN: 12.2 Normal 12.0-16.0 gm/dL LAB 4544-3(LOINC) HEMATOCRIT:VFR:P T:BLD:QN:AUTOMAT ED COUNT 35.4 Normal 34.0-46.0 % LAB 788-0(INC) ERYTHROCYTE DISTRIBUTION WIDTH:RATIO:PT:R BC:QN:AUTOMATED COUNT 13.8 Normal 10.9-14.2 % LAB 785-6(LOINC) ERYTHROCYTE MEAN CORPUSCULAR HEMOGLOBIN:ENTMA SS:PT:RBC:QN:AUT OMATED COUNT 28.7 Normal 27.0-34.0 pg LAB 786-4(LOINC) ERYTHROCYTE MEAN CORPUSCULAR HEMOGLOBIN CONCENTRATION:MC NC:PT:RBC:QN:AUT OMATED COUNT 34.3 Normal 31.4-36.0 gm/dL LAB 787-2(LOINC) ERYTHROCYTE MEAN CORPUSCULAR VOLUME:ENTVOL:PT :RBC:QN:AUTOMATE D COUNT 83.5 Normal 80.0-100.0 fL LAB 78394-8(LOINC) PLATELET MEAN VOLUME:ENTVOL:PT :BLD:QN:AUTOMATE D COUNT 7.4 Normal 6.4-10.8 fL LAB 77965473(INC ) Platelet 404.0 Normal 150.0-500.0 E9/L LAB 39272-7([facility]) NEUTROPHILS/100 LEUKOCYTES:NFR:P T:BLD:QN: 35.5 Low 36.0-75.0 % LAB 731-0([facility]) LYMPHOCYTES:NCNC :PT:BLD:QN:AUTOM ATED COUNT 52.2 High 14.0-50.0 % LAB 742-7([facility]) MONOCYTES:NCNC:P T:BLD:QN:AUTOMAT ED COUNT 0.6 Normal 0.2-1.0 E9/L LAB 713-8([facility]) EOSINOPHILS/100 LEUKOCYTES:NFR:P T:BLD:QN:AUTOMAT ED COUNT 2.3 Normal 0.0-8.0 % LAB 704-7([facility]) BASOPHILS:NCNC:P T:BLD:QN:AUTOMAT ED COUNT 0.4 Normal 0.0-2.0 % LAB 751-8([facility]) NEUTROPHILS:NCNC :PT:BLD:QN:AUTOM ATED COUNT 2.3 Normal 2.0-7.5 E9/L LAB 52587-7([facility]) LYMPHOCYTES:NCNC :PT:BLD:QN: 3.4 Normal 1.0-4.0 E9/L LAB 90382-0([facility]) EOSINOPHILS:NCNC :PT:BLD:QN: 0.2 Normal 0.0-0.5 E9/L LAB 60361-6([facility]) BASOPHILS/LEUKOC YTES:NFR.DF:PT:B LD:QN:AUTOMATED COUNT 0.0 Normal 0.0-0.2 E9/L Performed By: #### [id number] # ### [facility] [address] [place] [address] ETHANOL Collected: 4 10:04 PM Status: F Source: [facility] REPOSITORY TYPE CODE TESTS RESULT OUT OF RANGE REFERENCE UNITS LAB 65074616([facility]) Ethanol Lvl <10 Normal <=11 mg/d L Performed By: #### [id number] # ### [facility] [address] [place] [address] ACETAMNPHN LVL Collected: 4 10:04 PM Status: F Source: [facility] REPOSITORY TYPE CODE TESTS RESULT OUT OF RANGE REFERENCE UNITS LAB 17259629([facility] ) Acetaminoph Lvl <.1 Low 15.0-30.0 microgram /mL Performed By: #### [id number] # ### [facility] [address] [place] [address] SALICYLATE Collected: 03/14/2024 10:04 PM Status: F Source: [facility] REPOSITORY TYPE CODE TESTS RESULT OUT OF RANGE REFERENCE UNITS LAB 68055593([facility]) Salicylate Lvl <2 Low 6-29 m g/dL Performed By: #### [id number] # ### [facility] [address] [place] [address] CMP Collected: 10:04 PM Status: F Source: [facility] REPOSITORY TYPE CODE TESTS RESULT OUT OF RANGE REFERENCE UNITS LAB 2345-7([facility]) GLUCOSE:MCNC: PT:SER/PLAS:Q N: 86 Normal 55-199 mg/dL LAB 3094-0([facility]) UREA NITROGEN:MCNC :PT:SER/PLAS: QN: 8 Normal 5-21 mg/dL LAB 2160-0([facility]) CREATININE:MC NC:PT:SER/RAPHAEL S:QN: 0.8 Normal 0.5-1.3 mg/dL LAB 95266-3([facility]) CALCIUM:MCNC: PT:SER/PLAS:Q N: 8.5 Low 8.9-11.1 mg/dL LAB 2951-2([facility]) SODIUM:SCNC:P T:SER/PLAS:QN : 138 Normal 135-145 mmol/L LAB 2823-3([facility]) POTASSIUM:SCN C:PT:SER/PLAS :QN: 3.7 Normal 3.5-5.3 mmol/L LAB 2075-0([facility]) CHLORIDE:SCNC :PT:SER/PLAS: QN: 104 Normal 101-111 mmol/L LAB 8-9([facility]) CARBON DIOXIDE:SCNC: PT:SER/PLAS:Q N: 25 Normal 21-31 mmol/L LAB 6768-6([facility]) ALKALINE PHOSPHATASE:C CNC:PT:SER/PL :QN: 37 Normal 21-98 Int._Unit /L LAB 1975-([facility]) BILIRUBIN:MCN C:PT:SER/PLAS :QN: 0.2 Normal 0.0-1.1 mg/dL LAB 1751-7([facility]) ALBUMIN:MCNC: PT:SER/PLAS:Q N: 3.5 Normal 3.3-5.0 gm/dL LAB 2885-2([facility]) PROTEIN:MCNC: PT:SER/PLAS:Q N: 6.5 Normal 6.0-7.8 gm/dL LAB 1744-2([facility]) ALANINE AMINOTRANSFER ASE:CCNC:PT:S ER/PLAS:QN:NO ADDITION OF P-5'-P 19 Normal 6-46 Int._Unit /L LAB 192-8([facility]) ASPARTATE AMINOTRANSFER ASE:CCNC:PT:S ER/PLAS:QN: 18 Normal 5-43 Int._Unit /L LAB 3097-3([facility]) UREA NITROGEN/CREA TININE:MRTO:P T:SER/PLAS:QN : 10 Normal 10-20 No Units LAB 11563-9([facility]) ANION GAP:SCNC:PT:S ER/PLAS:QN: 13 Normal 6-16 mEq/L LAB 82386-8([facility]) GLOBULIN:MCNC :PT:SER:QN:CA LCULATED 3.0 Normal 1.4-4.0 gm/dL LAB 78213-2([facility]) ALBUMIN/GLOBU CHARLES:MCRTO:PT: SER:QN: 1.2 Normal 1.1-2.2 Performed By: #### [id number] # ### [facility] [address] [place] [address] LIPID PANEL Collected: 4 8:30 AM Status: F Source: [facility] REPOSITORY TYPE CODE TESTS RESULT OUT OF RANGE REFERENCE UNITS LAB 2092-10([facility]) CHOLESTEROL: MCNC:PT:SER/ PLAS:QN: 225 High 120-200 mg/dL LAB 2085-04([facility]) CHOLESTEROL. IN HDL:MCNC:PT: SER/PLAS:QN: 53 Unknown mg/dL Result Comment: '>= 60 LOW R ISK' '<= 40 HIGH RISK' LAB 1([facility]) CHOLESTEROL. IN LDL:MCNC:PT: SER/PLAS:QN: 165 High <=129 mg/dL LAB 2571-8([facility]) TRIGLYCERIDE :MCNC:PT:SER /PLAS:QN: 173 High <=149 mg/dL LAB 85771-2([facility]) CHOLESTEROL. IN VLDL:MCNC:PT :SER/PLAS:QN :CALCULATED 35 Normal 7-40 mg/dL Performed By: #### [id number] # ### [facility] [address] [place] [address] HGBA1C Collected: 03/03/2024 8:30 AM Status: F Source: [facility] REPOSITORY TYPE CODE TESTS RESULT OUT OF RANGE REFERENCE UNITS LAB 4548-4([facility]) HEMOGLOBIN A1C/HEMOGLOBIN. TOTAL:MFR:PT:BL D:QN: 5.3 Normal <=5.9 % Performed By: #### [id number] #### [facility] [address] [place] [address] VITAMIN D 25 HYDROXY Collected: 024 8:30 AM Status: F Source: [facility] REPOSITORY TYPE CODE TESTS RESULT OUT OF RANGE REFERENCE UNITS LAB 1989-3([facility]) CALCIDIOL:MC NC:PT:SER/PL :QN: 18.5 Low 30.0-100.0 ng/mL Performed By: #### [id number] #### [facility] [address] [place] [address] GLU FASTING Collected: 8:30 AM Status: F Source: [facility] REPOSITORY TYPE CODE TESTS RESULT OUT OF RANGE REFERENCE UNITS LAB 92277391([facility]) Glucose Fasting 91 Normal 55-99 mg/dL Performed By: #### [id number] # ### [facility] [address] [place] [address] ABDOMEN W/ CONTRAST Observed: 024 7:49 AM Status: F Source: [facility] REPOSITORY Exam Date/Time: 03/03/2024 08:22 EDT Reason for [...] No Oral contrast amount in ml's: 900 US GALLBLADDER Observed: 02/16/2024 10:25 AM Status: F Source: [facility] REPOSITORY Exam Date/Time: 02/16/2024 10:40 EDT Reason for [...] perinephric fluid collection. No hydronephrosis. 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 female here for surgical consult Dr. Hernandez referring Patient has a hx of pancreatitis and family hx of pancreatitis. Last flare up CT abd/pel done 01/13/2024 She is having right sided pain History of Present Illness Consent: The patient or their guardian verbally consented to allow [employer] to record this visit. Rose Mary Schneider [...] with voice recognition artificial intelligence software, specifically [employer], [employer] and or [employer]. Substitutions may have occurred due to the inherent limitations of voice recognition and artificial intelligence software. ATTESTATION: Documentation services were performed after patient or guardian consented to allow [employer] to record this visit. CORINNE family reunification specialist and provider reviewed before signing. CORINNE: [...] mg Cap Junel Fe 08/22 oral tablet lurasidone 60 mg oral tablet melatonin-pyridoxine 3 mg-10 mg oral tablet, extended release [place] 325 mg-5 mg oral tablet, 1 tab(s), Oral, q6hr, PRN Pepcid AC 10 mg oral tablet, 10 mg= 1 tab(s), Oral, BID, PRN Protonix 40 mg tablet Zofran ODT 4 mg Tab-Dis, 4 mg= 1 tab(s), Oral, q8hr, PRN Allergies No Known Allergies Social History Alcohol Substance Abuse Tobacco Never (less than 100 in lifetime) Tobacco Use:., 02/09/2024 Family History Family history is negative Immunizations Vaccine Date Status influenza virus vaccine, inactivated 05/06/2023 Recorded SARS-CoV-2 (COVID-19) mRNAMUL.ORD![id number] 10/03/2022 Recorded meningococcal group B vaccine 07/31/2022 [...] 05/28/2005 Recorded diphth/hepB/pertussis,acel/polio/tetanus 05/28/2005 Recorded haemophilus b conjugate (PRP-T) vaccine 03/27/2005 Recorded diphth/hepB/pertussis,acel/polio/tetanus 03/27/2005 Recorded hepatitis B pediatric vaccine 2004 Recorded Lab Results Labs reviewed. Diagnostic Results X-rays reviewed. Result Comment: Electronical ly Signed By: Markus Cantor MD\.br\Date and Time Signed: 02/09/24 16:26 EDT\.br\Electronically Co-Signed By: Kelsie Bill\.br\Date and Time Co-Signed: 02/09/24 15:44 EDT AMBULATORY VISIT SUMMARY Observed: 01/21 10:04 AM Status: F Source: [facility] REPOSITORY ROSE MARY SCHNEIDER :2005 Visit Date:01/22/2024 Ambulatory Visit Instructions Your Diagnosis Acute pancreatitis Smoker Family history of pancreatitis Your Care Team Attending Physician - David MARCANO, Zenon Ratliff Primary Care Physician - Fredi Mcleod MD This Is Your Medications List Contact prescribing physician if questions or concerns APAP/butalbital/caffeine (APAP/butalbital/caffeine 325 mg-50 mg-40 mg Tab) acetaminophen-hydrocodone ([place] 325 mg-5 mg oral tablet) cetirizine (cetirizine [...] Ambulatory, Reason: Pancreatitis, No, No, Acute pancreatitis GASTROENTEROLOGY OFFICE/CLINIC NOTE Observed: 01/22/2024 10:00 AM Status: C Source: [facility] REPOSITORY Chief Complaint follow up to er, abdominal pain, pancreatitis HPI Staff This is a 18 year old female who presents today for a follow up from [facility] on 01/12/2024 and 01/13/2024 abdominal pain, generalized abd pain [facility] [place]: 01/13/2024 Chief Complaint seen here yesterday told she was just shy of pancreatitis. states abdominal pain worse. 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 denies n/v History of Present Illness [...] currently on control. Discharge Prescription List Prescriptions [place] 325 mg-5 mg oral tablet, 1 tab(s), Oral, q6hr, PRN Pepcid AC 10 mg oral tablet, 10 mg= 1 tab(s), Oral, BID, PRN [facility] [place]: 01/12/2024 Chief Complaint abd pain all [...] 84.7 fL (01/13/24) Chloride: 105 mmol/L (01/13/24) [place] Absolute: 0.5 E9/L (01/13/24) CO2: 27 mmol/L (01/13/24) [place] Auto: 7.4 % (01/13/24) Creatinine: 0.8 mg/dL [...] deformity, no trauma Abdomen: Benign, soft, nontender nondistended Assessment/Plan 1. Acute pancreatitis (K85.90: Acute pancreatitis without necrosis or infection, unspecified) Ordered: CT Abdomen w/ Contrast [facility] Internal Ambulatory Referral 2. Smoker (F17.200: Nicotine dependence, unspecified, uncomplicated) Ordered: CT Abdomen w/ Contrast 3. Family history of pancreatitis (Z83.79: Family history of other diseases of the digestive system) Repeat CT scan after 4 weeks to assess the pancreas after acute flare of pancreatitis Patient might benefit from cholecystectomy given idiopathic pancreatitis family history of pancreatitis in her mother requiring cholecystectomy. Will refer her to surgery might benefit from seeing advanced endoscopy Pancreatitis could be medication related versus idiopathic. She will benefit from further workup if she continues to have flares Follow-up No qualifying data available Problem List/Past Medical History Ongoing Acute pancreatitis Family history of pancreatitis Gastroenteritis Smoker Historical Seizure Procedure/Surgical History Myringotomy and drainage of middle ear. Medications APAP/butalbital/caffeine 325 mg-50 mg-40 mg Tab, 1 tab(s), Oral, q4hr, PRN cetirizine 5 mg oral tablet, 10 mg= 2 tab(s), Oral, Daily cloNIDine 0.1 mg tab, 0.1 mg= 1 tab(s), Oral, Daily FLUoxetine 40 mg Cap Junel Fe 08/22 oral tablet lurasidone 60 mg oral tablet melatonin-pyridoxine 3 mg-10 mg oral tablet, extended release [place] 325 mg-5 mg oral tablet, 1 tab(s), Oral, q6hr, PRN Pepcid AC 10 mg oral tablet, 10 mg= 1 tab(s), Oral, BID, PRN Protonix 40 mg tablet Zofran ODT 4 mg Tab-Dis, 4 mg= 1 tab(s), Oral, q8hr, PRN Allergies No Known Allergies Social History Alcohol Substance Abuse Tobacco Never (less than 100 in lifetime) Tobacco Use:., 01/22/2024 Current vaping or e-cigarette use Smokeless Tobacco Use:., 12/19/2022 Never (less than 100 in lifetime) Tobacco Use:., 12/04/2021 Family History Family history is negative Immunizations Vaccine Date Status influenza virus vaccine, inactivated 05/06/2023 Recorded SARS-CoV-2 (COVID-19) mRNAMUL.ORD![id number] 10/03/2022 Recorded meningococcal group B vaccine 07/31/2022 [...] 05/28/2005 Recorded diphth/hepB/pertussis,acel/polio/tetanus 05/28/2005 Recorded haemophilus b conjugate (PRP-T) vaccine 03/27/2005 Recorded diphth/hepB/pertussis,acel/polio/tetanus 03/27/2005 Recorded hepatitis B pediatric vaccine 2004 Recorded Abdomen is tender in the epigastric area Might benefit from seeing advise endoscopy in the future for EUS Result Comment: Electronical ly Signed By: David MARCANO, Zenon Rodriguez.br\Date and Time Signed: 01/22/24 10:01 EDT DISCHARGE INSTRUCTIONS Observed: 024 9:13 PM Status: F Source: [facility] REPOSITORY [id number]#1.00TIFF ED PATIENT EDUCATION NOTE Observed: 01/01 9:12 PM Status: C Source: [facility] REPOSITORY Gastroenterology Acute Pancreatitis Acute pancreatitis happens when [...] these instructions at home: Medicines ? Take bkeb-pbc-ldzumyl and prescription medicines only as told by [...] provider. Document Revised: 06/10/2022 Document Reviewed: 06/10/2022 [employer] Patient Education ? 2022 Nextnav. ED PATIENT SUMMARY Observed: 01/13/2024 9:12 PM Status: C Source: [facility] REPOSITORY (Inserted Image. Unable to d isplay) [place] [id number] Patient Discharge Instructions Person Information Name: ROSE MARY SCHNEIDER Age: 18 Years Arrival Date: 01/13/2024 18:21:08 Discharge Diagnosis: Acute pancreatitis; Mild nausea Primary Care Physician: Fredi Mcleod MD Provider Information Primary Provider: Ko Draper DO Advanced [employer] Cream Dispenser:Mirella Camilo PA-C The exam and treatment you received in the Emergency Department were for an urgent problem and are not intended as complete care. It is important that you follow up with a doctor, nurse practitioner, or physician?s assistant professor of criminal justice for ongoing care. If your symptoms become [...] Follow-up Instructions: With: Address: When: Zenon Hernandez [address], [address] [place] [phone] Business (1) In 3 days 01/16/2024 Comments: Call to schedule an appointment with the addictions counselor for further management of care With: Address: When: Fredi Mcleod [address], [place] [address] Business (1) In 3 days In the event that this physician does not participate in your insurance network, please consult with your insurance company to find a nearby participating provider. Patient Education Materials: Acute Pancreatitis, Xdxc-hx-Spji A MESSAGE TO ALL PATIENTS REGARDING OPIOIDS PRESCRIPTION OPIOIDS: WHAT YOU NEED TO KNOW Prescription opioids can be used to help relieve dibnwjbd-cw-fbchsm pain and are often prescribed following a [...] unused prescription opioids: Find your community drug take- back program or your pharmacy mail-back program, or flush them down the toilet, following guidance from the Food and Drug Administration (www.fda.gov/Drugs/ResourcesForYou). ? Visit www.cdc.gov/drugoverdose to learn about the risks of opioids abuse and overdose. ? If you believe you may be struggling with addiction, tell your health long term care social worker and ask for guidance or call SAMHSA?S National Helpline at 3-124-803-HWSK. v Source: US Department of Health and Human Services/Center for Disease Control & Prevention [facility] Medications Given: Medication Dose Route ketorolac 15.00 mg IV Push Right Antecubit [place] Sodium Chloride 0.9% intravenous solution 1000.00 mL Initial Volume 999.00 mL/hr IV Right Antecubit [place] ondansetron 4.00 mg IV Push Left Antecubital [place] acetaminophen-hydrocodone 5.00 mL Oral Medication Information: New Medications [facility]/pharmacy #[id number], [address] [place], [place] [id number], [phone] acetaminophen-hydrocodone (S[place] Brook 325 mg-5 mg oral tablet) 1 Tablets [...] 6 hours as needed Pain. Refills: 0. Comment: Pharmacy Information: Patient Portal You may access all of your results and other medical record information on our secure patient portal. If you are not signed up for this yet, please contact [employer] at [phone] to get signed up today. SONJA Award Nomination The SONJA (Diseases Attacking the Immune SYstem) Award is an international recognition program that honors and celebrates the skillful, compassionate care nurses provide every day. Anyone who experiences or observes amazing care being provided by a nurse is encouraged to submit a nomination. To nominate your nurse, use your smart phone to scan the QR code below. You may receive a survey from [employer] asking you to rate your care experience. Your feedback is important and will help us understand what we do well and how we can improve the quality of care we provide to you, your loved ones and our community. It?s an honor to serve you. Thank you for choosing [facility] Patient Education Materials: Acute Pancreatitis Acute pancreatitis happens when there [...] these instructions at home: Medicines ? Take tljf-dyu-bjcswgs and prescription medicines only as told by [...] provider. Document Revised: 06/10/2022 Document Reviewed: 06/10/2022 [employer] Patient Education ? 2022 [employer]nav. JENNIE Chaudhari VERONICA R , have received the following patient education materials/instructions and have verbalized understanding: Patient Education Materials: Acute Pancreatitis, Tyqq-ft-Ktpl Follow-up Instructions: With: Address: When: Zenon Hernandez [address] [place] [address] [address] [place] [phone] [email or web address] (1) In 3 days 01/16/2024 Comments: Call to schedule an appointment with the addictions counselor for further management of care With: Address: When: Fredi Harsha [address] [place] [address], [facility] [place] [address] [email or web address] (1) In 3 days Patient Signature Date Clinician/Nurse Signature Date 01/13/2024 21:12:36 ED CLINICAL SUMMARY Observed: 01/13/2024 9:12 PM Status: C Source: [facility] REPOSITORY (Inserted Image. Unable to d isplay) [address] [address] ED Clinical Summary Person Information Name: ROSE MARY SCHNEIDER/Maria Luisa Age: 18 Years : 2005 Sex: Female Language: Khmer PCP: Fredi Mcleod MD Marital Status: Single Phone: [phone] Visit Id: Visit Reason: Abdominal pain; AB [...] 01/13/2024 21:12:34 01/13/2024 21:12:34 01/13/2024 21:12:34 ADDRESS: [address] [place] [phone] PHYS DOC NOTES: MEDICAL INFORMATION: Prescriptions Given: New Medications [id number], [address] [place] [id number], [phone] acetaminophen-hydrocodone (S[place] 325 mg-5 mg oral tablet) 1 Tablets [...] 0. PATIENT EDUCATION INFORMATION: Instructions: Acute Pancreatitis, Itcv-cb-Qitn Follow up: With: Address: When: Zenon Hernandez [address] [place] [address] [address] [place] [phone] [facility] (1) In 3 days 01/16/2024 Comments: Call to schedule an appointment with the addictions counselor for further management of care With: Address: When: Fredi Mcleod [address], [facility] [place] [address] Business (1) In 3 days DIAGNOSIS: Acute pancreatitis; Mild nausea RAD - PRELIMINARY CAT SCAN REPORT Observed: 01/13/2024 8:47 PM Status: F Source: [facility] REPOSITORY [id number]#1.00TIFF UA WITH CULT RFLX Collected: 7:41 PM Status: F Source: [facility] REPOSITORY TYPE CODE TESTS RESULT OUT OF RANGE REFERENCE UNITS LAB 9194-2([facility]) CLASS:TYPE:PT :URINE COLLECTION METHOD:NOM:* Clean Catch Normal LAB 10407-9([facility] ) COLOR:TYPE:PT :URINE:NOM:AU TO Colorless Abnormal Yellow Result Comment: Microscopic readings are only performed on those samples that meet specific criteria set forth by [facility]. LAB 61746-0([facility] ) CLARITY:TYPE: PT:URINE:NOM: Clear Normal Clear LAB 5811-5([facility]) SPECIFIC GRAVITY:RDEN: PT:URINE:SEMI QN:TEST STRIP 1.024 Unknown 1.005-1.030 LAB 5803-2([facility]) PH:LSCNC:PT:U RINE:SEMIQN:T EST STRIP 6.5 Unknown 5.0-9.0 LAB 60406-1([facility] ) PROTEIN:PRTHR :PT:URINE:ORD :TEST STRIP Negative Normal Negative mg/dL LAB 82676-6(INC ) GLUCOSE:PRTHR :PT:URINE:ORD :TEST STRIP Negative Normal Negative mg/dL LAB 52466-2(INC ) KETONES:PRTHR :PT:URINE:ORD :TEST STRIP.AUTOMAT ED Negative Normal Negative mg/dL LAB 42908-8(LOINC ) BILIRUBIN:PRT HR:PT:URINE:O RD:TEST STRIP.AUTOMAT ED Negative Normal Negative mg/dL LAB 45801-6(LOINC ) HEMOGLOBIN:MC NC:PT:URINE:S EMIQN:TEST STRIP.AUTOMAT ED 1+ Abnormal Negative mg/dL LAB 44254-1(LOINC ) NITRITE:PRTHR :PT:URINE:ORD :TEST STRIP.AUTOMAT ED Negative Normal Negative mg/dL LAB 10195-2(LOINC ) UROBILINOGEN: MCNC:PT:URINE :SEMIQN:TEST STRIP Negative Normal Negative mg/dL LAB 96773-9(LOINC ) LEUKOCYTE ESTERASE:PRTH R:PT:URINE:OR D:TEST STRIP.AUTOMAT ED Negative Normal Negative CD:[id number] LAB 95705-0(LOINC ) LEUKOCYTES:NA EPHRAIM:PT:URINE SED:QN:AUTOMA [place]LY[place] COUNT 0-5 Normal 0-5 CD:52015 31677 LAB 86488-5(LOINC ) ERYTHROCYTES: PRTHR:PT:URIN E SED:ORD:MICRO SCOPY.LIGHT 0-3 Normal 0-3 CD:69568 33428 LAB 76504-7(LOINC ) EPITHELIAL CELLS.SQUAMOU S:NARIC:PT:UR INE SED:QN:AUTOMA ULY[place] COUNT 0-2 Unknown CD:49707 65107 LAB 25331-4(LOINC ) MUCUS:PRTHR:P T:URINE:ORD:A UTOMATED Negative Normal Negative CD:89019 22893 Performed By: #### [id number] #### [facility] [address] [place] [address] CT ABDOMEN/PELVIS W/ CONTRAST Observed: 01/13/2024 7:13 PM Status: F Source: [facility] REPOSITORY Exam Date/Time: 01/13/2024 19:28 EDT Reason for [...] Lymph nodes: No abdominal or pelvic lymphadenopathy. Mesentery/Peritoneum/Retroperitoneum: No ascites or mass. Vasculature: The celiac [...] REPORT Dictated: 01/14/2024 9:07 am Mina Botello MD. Signed (Electronic Signature): 01/14/2024 9:07 am Signed by: Mina Botello MD Transcribed by: GARTH Technologist: MATHEW Technical Comments GFR (mL/min/1/73m2) n/a-age Contrast: Isovue 300 Contrast amount in ml's: 100 ED NOTE-PHYSICIAN Observed: 01/13/2024 6:58 PM Status: F Source: [facility] REPOSITORY Basic Information Time Seen: Mirella Camilo PA-C 01/13/2024 18:36 Chief Complaint seen here yesterday told she was just shy of pancreatitis. states abdominal pain worse. 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 denies n/v History of Present Illness [...] processes. The patient is being discharged with S[place] and Pepcid for pain management. Patient states she has Zofran at home already for nausea. She will follow-up with GI for further management of care. She was advised to return to the ED with any worsening symptoms. Patient was agree with plan with all questions were answered. Assessment/Plan Acute pancreatitis (K85.90: Acute pancreatitis without necrosis or infection, unspecified) Mild nausea (R11.0: Nausea) Orders: acetaminophen-hydrocodone, 1 tab(s), Oral, q6hr for pain, 8 tab(s), Refill(s) 0, 1 to 2 tabs every 4 to 6 hours as needed for pain, Pain, [id number], 165.1, cm, 01/13/24 18:35:00 EDT, Height/Length Dosing, 117.7, kg, 01/13/24 18:35:00 EDT, Weight Dosing acetaminophen-hydrocodone, 5 mL, Soln-Oral, Oral, Once, Stop date 01/13/24 20:44:00 EDT, STAT, Start date 01/13/24 20:44:00 EDT famotidine, 10 mg = 1 tab(s), Oral, BID, PRN Pain, # 30 tab(s), Refills(s) 0, Pharmacy: [facility]/pharmacy #[id number], 165.1, cm, 01/13/24 18:35:00 EDT, Height/Length [...] Discharge Disposition home Discharge Prescription List Prescriptions S[place] 325 mg-5 mg oral tablet, 1 tab(s), Oral, q6hr, PRN Pepcid AC 10 mg oral tablet, 10 mg= 1 tab(s), Oral, BID, PRN Follow-up With When Contact Information Zenon Hernandez In 3 days 01/16/2024 EDT [address], [address] [place] [address]- [phone] Business (1) Additional Instructions: Call to schedule an appointment with the addictions counselor for further management of care Fredi Mcleod In [address] [place] [place] [address]- Business (1) Additional Instructions: Patient Education Acute Pancreatitis, Mqzu-wl-Vupr Attestation Patient seen and evaluated by the physician assistant professor of criminal justice. Attending physician was present in the emergency department and supervised care. This visit was performed by both the physician and an APC. I performed all aspects of the MDM as documented. This report was transcribed using voice recognition software. Every effort was made to ensure accuracy, however, inadvertently computerized senior financial reporting analyst mistakes may be present. Appropriate healthcare PPE was used in evaluating this patient. The patient was placed in a mask. The healthcare provider was wearing mask, gloves, and utilizing proper hand hygiene. All equipment was properly cleansed. I performed a substantive part of the MDM during the patient?s E/M visit. I personally made or approved the documented management plan and acknowledge its risk of complications. (Independent Interpretation) My (EKG/X-Ray/US/CT as applicable) interpretation as above. (Discussion) Management/test interpretation discussed with APC. Problem List/Past Medical History Ongoing Smoker Historical Seizure Procedure/Surgical History Myringotomy and drainage of middle ear. Medications Inpatient ketorolac 15 mg/mL Inj, 15 mg= 1 mL, IV Push, Once Sodium Chloride 0.9% IV Britney 1000 mL 1,000 mL, 1000 mL, IV Home APAP/butalbital/caffeine 325 mg-50 mg-40 mg Tab, 1 tab(s), Oral, q4hr, PRN cetirizine 5 mg oral tablet, 10 mg= 2 tab(s), Oral, Daily cloNIDine 0.1 mg tab, 0.1 mg= 1 tab(s), Oral, Daily FLUoxetine 40 mg Cap Junel Fe 08/22 oral tablet Keppra 500 mg Tab, 500 mg= 1 tab(s), Oral, BID Lamictal 25 mg Tab, 25 mg= 1 tab(s), Oral, Daily lurasidone 60 mg oral tablet melatonin-pyridoxine 3 mg-10 mg oral tablet, extended release Protonix 40 mg tablet traMADOL 50 mg Tab, 1-2 tabs, Oral, q6hr, PRN Zofran ODT 4 mg Tab-Dis, 4 mg= 1 tab(s), Oral, q8hr, PRN Allergies No Known Allergies Social History Alcohol Substance Abuse Tobacco Current vaping or e-cigarette use Smokeless Tobacco Use:., 12/19/2022 Never (less than 100 in lifetime) Tobacco Use:., 12/04/2021 Lab Results WBC: 7.1 E9/L (01/13/24 18:56:00) RBC: 4.2 E12/L Low (01/13/24 18:56:00) HGB: 11.8 gm/dL Low (01/13/24 18:56:00) Hct: 35.6 % (01/13/24 18:56:00) MCV: 84.7 fL (01/13/24 18:56:00) MCH: 28 pg (01/13/24 18:56:00) MCHC: 33.1 gm/dL (01/13/24 18:56:00) RDW: 13.8 % (01/13/24 18:56:00) Platelet: 394 E9/L (01/13/24 18:56:00) MPV: 8.1 fL (01/13/24 18:56:00) Neutro Auto: 49 % (01/13/24 18:56:00) Lymph Auto: 40.4 % (01/13/24 18:56:00) Fulton Auto: 7.4 % (01/13/24 18:56:00) Eos Auto: 2.6 % (01/13/24 18:56:00) Basophil Auto: 0.6 % (01/13/24 18:56:00) Neutro Absolute: 3.5 E9/L (01/13/24 18:56:00) Lymph Absolute: 2.9 E9/L (01/13/24 18:56:00) [place]on Absolute: 0.5 E9/L (01/13/24 18:56:00) Eos Absolute: 0.2 E9/L (01/13/24 18:56:00) Basophil Absolute: 0 E9/L (01/13/24 18:56:00) Glucose Lvl: 96 mg/dL (01/13/24 18:56:00) BUN: 9 mg/dL (01/13/24 18:56:00) Creatinine: 0.8 mg/dL (01/13/24 18:56:00) eGFR: 109 mL/min/1.73 m2 (01/13/24 18:56:00) BUN/Creat Ratio: 11 (01/13/24 18:56:00) Sodium Lvl: 137 mmol/L (01/13/24 18:56:00) Potassium Lvl: 3.6 mmol/L (01/13/24 18:56:00) Chloride: 105 mmol/L (01/13/24 18:56:00) CO2: 27 mmol/L (01/13/24 18:56:00) AGAP: 9 mEq/L (01/13/24 18:56:00) Calcium Lvl: 8.6 mg/dL Low (01/13/24 18:56:00) Alk Phos: 45 Int._Unit/L (01/13/24 18:56:00) ALT: 11 Int._Unit/L (01/13/24 18:56:00) AST: 12 Int._Unit/L (01/13/24 18:56:00) Total Protein: 6.7 gm/dL (01/13/24 18:56:00) Albumin Lvl: 3.4 gm/dL (01/13/24 18:56:00) Globulin: 3.3 gm/dL (01/13/24 18:56:00) A/G Ratio: 1 Low (01/13/24 18:56:00) Bili Total: 0.3 mg/dL (01/13/24 18:56:00) Bili Direct: 0 mg/dL (01/13/24 18:56:00) Bili Indirect: 0.3 mg/dL (01/13/24 18:56:00) Lipase Lvl: 144 unit/L High (01/13/24 18:56:00) UA Spec Desc: Clean Catch (01/13/24 19:41:00) UA Color: Colorless Abnormal (01/13/24 19:41:00) UA Clarity: Clear (01/13/24 19:41:00) UA Spec Grav: 1.024 (01/13/24 19:41:00) UA pH: 6.5 (01/13/24 19:41:00) UA Protein: Negat (01/13/24 19:41:00) UA Glucose: Negat (01/13/24 19:41:00) UA Ketones: Negat (01/13/24 19:41:00) UA Bili: Negat (01/13/24 19:41:00) UA Blood: 1+ Abnormal (01/13/24 19:41:00) UA Nitrite: Negat (01/13/24 19:41:00) UA Urobilinogen: Negat (01/13/24 19:41:00) UA Leuk Est: Negat (01/13/24 19:41:00) UA RBC: 0-3 (01/13/24 19:41:00) UA Squam Epithelial: 0-2 (01/13/24 19:41:00) UA WBC: 0-5 (01/13/24 19:41:00) UA Mucous: Negat (01/13/24 19:41:00) Diagnostic Results No qualifying data available. Result Comment: Electronical ly Signed By: Mirella Camilo PA-C\.br\Date and Time Signed: 01/13/24 21:12 EDT\.br\Electronically Co-Signed By: Mirella Camilo PA-C\.br\Date and Time Co-Signed: 01/14/24 00:04 EDT\.br\Electronically Co-Signed By: Migue Farrell M.D.\.br\Date and Time Co-Signed: 01/14/24 07:02 EDT CBC W/ AUTO DIFF Collected: 01/13/2024 6:56 PM Statu s: F Source: [facility] REPOSITORY TYPE CODE TESTS RESULT OUT OF RANGE REFERENCE UNITS LAB 60399-7(LOINC) LEUKOCYTES 7.1 Normal 4.0-11.0 E9/L LAB 789-8(LOINC) ERYTHROCYTES:NCN C:PT:BLD:QN:AUTO MATED COUNT 4.2 Low 4.3-5.9 E12/L LAB 718-7([facility]) HEMOGLOBIN:MCNC: PT:BLD:QN: 11.8 Low 12.0-16.0 gm/dL LAB 4544-3([facility]) HEMATOCRIT:VFR:P T:BLD:QN:AUTOMAT ED COUNT 35.6 Normal 34.0-46.0 % LAB 788-0([facility]) ERYTHROCYTE DISTRIBUTION WIDTH:RATIO:PT:R BC:QN:AUTOMATED COUNT 13.8 Normal 10.9-14.2 % LAB 785-6([facility]) ERYTHROCYTE MEAN CORPUSCULAR HEMOGLOBIN:ENTMA SS:PT:RBC:QN:AUT OMATED COUNT 28.0 Normal 27.0-34.0 pg LAB 786-4([facility]) ERYTHROCYTE MEAN CORPUSCULAR HEMOGLOBIN CONCENTRATION:MC NC:PT:RBC:QN:AUT OMATED COUNT 33.1 Normal 31.4-36.0 gm/dL LAB 787-2([facility]) ERYTHROCYTE MEAN CORPUSCULAR VOLUME:ENTVOL:PT :RBC:QN:AUTOMATE D COUNT 84.7 Normal 80.0-100.0 fL LAB 70240-4([facility]) PLATELET MEAN VOLUME:ENTVOL:PT :BLD:QN:AUTOMATE D COUNT 8.1 Normal 6.4-10.8 fL LAB 777-3([facility]) PLATELETS:NCNC:P T:BLD:QN:AUTOMAT ED COUNT 394.0 Normal 150.0-500.0 E9/L LAB 27764-8([facility]) NEUTROPHILS/100 LEUKOCYTES:NFR:P T:BLD:QN: 49.0 Normal 36.0-75.0 % LAB 731-0([facility]) LYMPHOCYTES:NCNC :PT:BLD:QN:AUTOM ATED COUNT 40.4 Normal 14.0-50.0 % LAB 742-7([facility]) MONOCYTES:NCNC:P T:BLD:QN:AUTOMAT ED COUNT 0.5 Normal 0.2-1.0 E9/L LAB 713-8([facility]) EOSINOPHILS/100 LEUKOCYTES:NFR:P T:BLD:QN:AUTOMAT ED COUNT 2.6 Normal 0.0-8.0 % LAB 704-7(LOINC) BASOPHILS:NCNC:P T:BLD:QN:AUTOMAT ED COUNT 0.6 Normal 0.0-2.0 % LAB 751-8(LOINC) NEUTROPHILS:NCNC :PT:BLD:QN:AUTOM ATED COUNT 3.5 Normal 2.0-7.5 E9/L LAB 62610-6(LOINC) LYMPHOCYTES:NCNC :PT:BLD:QN: 2.9 Normal 1.0-4.0 E9/L LAB 01172-8(LOINC) EOSINOPHILS:NCNC :PT:BLD:QN: 0.2 Normal 0.0-0.5 E9/L LAB 30559-1([facility]) BASOPHILS/LEUKOC YTES:NFR.DF:PT:B LD:QN:AUTOMATED COUNT 0.0 Normal 0.0-0.2 E9/L Performed By: #### [id number] # ### [facility] [address] [place] [address] EGFR Collected: 6:56 PM Status: F Source: [facility] REPOSITORY Order Comment: Order added b y Discern Expert. TYPE CODE TESTS RESULT OUT OF RANGE REFERENCE UNITS LAB 20065938([facility]) eGFR 109 Normal >=59 mL/min/1 . 73 m2 Performed By: #### [id number] #### [facility] [address] [place] [address] LIPASE LEVEL Collected: 01/13/2024 6:56 PM Status: F Source: [facility] REPOSITORY TYPE CODE TESTS RESULT OUT OF RANGE REFERENCE UNITS LAB 3040-3([facility]) TRIACYLGLYCEROL LIPASE:CCNC:PT:SER/ PLAS:QN: 144 High 13-58 unit/L Performed By: #### [id number] # ### [facility] [address] [place] [address] HEP FUNC PANEL Collected: 6:56 PM Status: F Source: [facility] REPOSITORY TYPE CODE TESTS RESULT OUT OF RANGE REFERENCE UNITS LAB 1744-2([facility]) ALANINE AMINOTRANSFER ASE:CCNC:PT:S ER/PLAS:QN:NO ADDITION OF P-5'-P 11 Normal 6-46 Int._Unit /L LAB 1920-8([facility]) ASPARTATE AMINOTRANSFER ASE:CCNC:PT:S ER/PLAS:QN: 12 Normal 5-43 Int._Unit /L LAB 1751-7([facility]) ALBUMIN:MCNC: PT:SER/PLAS:Q N: 3.4 Normal 3.3-5.0 gm/dL LAB 03326-4([facility]) GLOBULIN:MCNC :PT:SER:QN:CA LCULATED 3.3 Normal 1.4-4.0 gm/dL LAB 53150-6([facility]) ALBUMIN/GLOBU CHARLES:MCRTO:PT: SER:QN: 1.0 Low 1.1-2.2 LAB 6768-6([facility]) ALKALINE PHOSPHATASE:C CNC:PT:SER/PL :QN: 45 Normal 21-98 Int._Unit /L LAB 1968-7([facility]) BILIRUBIN.GLU CURONIDATED+B ILIRUBIN.ALBU MIN BOUND:MCNC:PT :SER/PLAS:QN: 0.0 Normal 0.0-0.4 mg/dL LAB 50044-6([facility]) BILIRUBIN.NON -GLUCURONIDAT ED:MSCNC:PT:S ER/PLAS:QN: 0.3 Normal 0.1-0.9 mg/dL LAB 1975-2([facility]) BILIRUBIN:MCN C:PT:SER/PLAS :QN: 0.3 Normal 0.0-1.1 mg/dL LAB 2885-2([facility]) PROTEIN:MCNC: PT:SER/PLAS:Q N: 6.7 Normal 6.0-7.8 gm/dL Performed By: #### [id number] # ### [facility] [address] [place] [address] [facility] Collected: 4 6:56 PM Status: F Source: [facility] REPOSITORY TYPE CODE TESTS RESULT OUT OF RANGE REFERENCE UNITS LAB 2345-7([facility]) GLUCOSE:MCNC :PT:SER/PLAS :QN: 96 Normal 55-199 mg/dL LAB 3094-0([facility]) UREA NITROGEN:MCN C:PT:SER/RAPHAEL S:QN: 9 Normal 5-21 mg/dL LAB 2160-0([facility]) CREATININE:M CNC:PT:SER/P LAS:QN: 0.8 Normal 0.5-1.3 mg/dL LAB 3097-3([facility]) UREA NITROGEN/CRE ATININE:MRTO :PT:SER/PLAS :QN: 11 Normal 10-20 No Units LAB 64182-1([facility]) CALCIUM:MCNC :PT:SER/PLAS :QN: 8.6 Low 8.9-11.1 mg/dL LAB 2951-2([facility]) SODIUM:SCNC: PT:SER/PLAS: QN: 137 Normal 135-145 mmol/L LAB 2823-3([facility]) POTASSIUM:SC NC:PT:SER/PL :QN: 3.6 Normal 3.5-5.3 mmol/L LAB 2075-0([facility]) CHLORIDE:SCN C:PT:SER/RAPHAEL S:QN: 105 Normal 101-111 mmol/L LAB 2028-9([facility]) CARBON DIOXIDE:SCNC :PT:SER/PLAS :QN: 27 Normal 21-31 mmol/L LAB 54574-1([facility]) ANION GAP:SCNC:PT: SER/PLAS:QN: 9 Normal 6-16 mEq/L Performed By: #### [id number] # ### [facility] [address] [place] [address] CONSENT FOR TREATMENT Observed: 01/13/20 24 6:22 PM Status: F Source: [facility] REPOSITORY [id number]#1.00TIFF DISCHARGE INSTRUCTIONS Observed: 024 6:44 PM Status: F Source: [facility] REPOSITORY [id number]#1.00TIFF PRESCRIPTIONS/WORK NOTES Observed: 01/11 5:45 PM Status: F Source: [facility] REPOSITORY [id number]#1.00TIFF ED PATIENT EDUCATION NOTE Observed: 06/1 08/2023 5:22 PM Status: C Source: [facility] REPOSITORY Gastroenterology Full Liquid Diet A full liquid [...] Water. Coffee and tea (caffeinated or decaffeinated). [place]street. Liquid nutritional supplements. Soft drinks. Nondairy milks, such as almond, coconut, rice, or soy milk. Sweets and desserts Custard. Pudding. Flavored gelatin. Smooth ice cream (without nuts or candy pieces). Sherbet. Frozen ice pops. Cymraes ice. Pudding pops. Seasonings and condiments Salt and pepper. Spices. Vinegar. Ketchup. Yellow mustard. Smooth sauces, such as Hollandaise, cheese sauce, or white sauce. Soy sauce. Syrup. Honey. Jelly (without fruit pieces). Other foods Silverstreet powder. Cream soups. Strained soups. The items [...] provider. Document Revised: 05/07/2021 Document Reviewed: 05/07/2021 [employer] Patient Education ? 2022 Nextnav.Nausea, Adult Nausea is feeling like you may [...] ? Low-calorie sports drinks. ? Eat bland, ltoc-jf-paxbst foods in small amounts as you are able, such as: ? Bananas. ? Applesauce. ? Rice. ? Low-fat (lean) meats. ? Revere. ? Crackers. ? Avoid drinking fluids that have a lot of sugar or caffeine in them. This includes energy drinks, sports drinks, and soda. ? Avoid alcohol. ? Avoid spicy or fatty foods. General instructions ? Take knnj-jjj-vnhhmms and prescription medicines only as told by [...] cannot use soap and water, use hand stucco worker. ? Make sure that everyone in your [...] drink what your doctor tells you. Take doae-lqh-enlcvgd and prescription medicines only as told by [...] provider. Document Revised: 01/24/2022 Document Reviewed: 01/24/2022 [employer] Patient Education ? 2022 Nextnav.Abdominal Pain, Adult Many things can cause belly (abdominal) pain. Most times, belly pain is not dangerous. Many cases of belly pain can be watched and treated at home. Sometimes, though, belly pain is serious. Your doctor will try to find the cause of your belly pain. Follow these instructions at home: Medicines ? Take nyme-wof-hcbmpsf and prescription medicines only as told by your doctor. ? Do not take medicines that help you poop (laxatives) unless told by your doctor. General instructions ? Watch your belly pain for any changes. ? Drink enough fluid to keep your pee (urine) pale yellow. ? Keep all follow-up visits as told by your doctor. This is important. Contact a doctor if: ? Your belly pain changes or gets worse. ? You are not hungry, or you lose weight without trying. ? You are having trouble pooping (constipated) or have watery poop (diarrhea) for more than 2?3 days. ? You have pain when you pee or poop. ? Your belly pain wakes you up at night. ? Your pain gets worse with meals, after eating, or with certain foods. ? You are vomiting and cannot keep anything down. ? You have a fever. ? You have blood in your pee. Get help right away if: ? Your pain does not go away as soon as your doctor says it should. ? You cannot stop vomiting. ? Your pain is only in areas of your belly, such as the right side or the left lower part of the belly. ? You have bloody or black poop, or poop that looks like tar. ? You have very bad pain, cramping, or bloating in your belly. ? You have signs of not having enough fluid or water in your body (dehydration), such as: ? Dark pee, very little pee, or no pee. ? Cracked lips. ? Dry mouth. ? Sunken eyes. ? Sleepiness. ? Weakness. ? You have trouble breathing or chest pain. Summary ? Many cases of belly pain can be watched and treated at home. ? Watch your belly pain for any changes. ? Take vpxe-qoo-cjnanpg and prescription medicines only as told by your doctor. ? Contact a doctor if your belly pain changes or gets worse. ? Get help right away if you have very bad pain, cramping, or bloating in your belly. This information is not intended to replace advice given to you by your health care provider. Make sure you discuss any questions you have with your health care provider. Document Revised: 11/28/2019 Document Reviewed: 11/28/2019 [employer] Patient Education ? 2022 Nextnav. ED PATIENT SUMMARY Observed: 01/12/2024 5:22 PM Status: F Source: [facility] REPOSITORY (Inserted Image. Unable to d isplay) [place] [address] Patient Discharge Instructions Person Information Name: ROSE MARY SCHNEIDER Age: 18 Years Arrival Date: 01/12/2024 14:42:50 Discharge Diagnosis: 1:Generalized abdominal pain; 2:Nausea; 3:Elevated lipase Primary Care Physician: Fredi Mcleod MD Provider Information Primary Provider: Markus Whipple DO Advanced [employer] Cream Dispenser:Liss Schroeder PA-C The exam and treatment you received in the Emergency Department were for an urgent problem and are not intended as complete care. It is important that you follow up with a doctor, nurse practitioner, or physician?s assistant professor of criminal justice for ongoing care. If your symptoms become worse or you do not improve as expected and you are unable to reach your usual health care provider, you should return to the Emergency Department. We are available 24 hours a day. ROSE MARY SCHNEIDER has been given the following list of patient education materials, prescriptions and follow-up instructions: Follow-up Instructions: With: Address: When: Harsha MARCANO, Fredi [address] [place], [place] [id number] In 3 days 01/15/2024 In the event that this physician does not participate in your insurance network, please consult with your insurance company to find a nearby participating provider. Patient Education Materials: Full Liquid Diet; Nausea, Adult, Fixg-ky-Sejz; Abdominal Pain, Adult, Eofd-ld-Apru A MESSAGE TO ALL PATIENTS REGARDING OPIOIDS PRESCRIPTION OPIOIDS: WHAT YOU NEED TO KNOW Prescription opioids can be used to help relieve akpbknxs-me-fczzta pain and are often prescribed following a [...] unused prescription opioids: Find your community drug take- back program or your pharmacy mail-back program, or flush them down the toilet, following guidance from the Food and Drug Administration (www.fda.gov/Drugs/ResourcesForYou). ? Visit www.cdc.gov/drugoverdose to learn about the risks of opioids abuse and overdose. ? If you believe you may be struggling with addiction, tell your health long term care social worker and ask for guidance or call [facility]?S National Helpline at 1-178-706-PXLX. v Source: US Department of Health and Human Services/Center for Disease Control & Prevention [facility] Medications Given: Medication Dose Route Sodium Chloride 0.9% intravenous solution 1000.00 mL Initial Volume 999.00 mL/hr IV Right Arm ondansetron 4.00 mg IV Push Right Arm ketorolac 30.00 mg IV Push Right Arm Medication Information: New Medications [id number], [address] [place], [place] [id number], [phone] ondansetron (Zofran ODT 4 mg Tab-Dis) 1 [...] FOR INSOMNIA. pantoprazole (Protonix 40 mg tablet) Comment: Pharmacy Information: Patient Portal You may access all of your results and other medical record information on our secure patient portal. If you are not signed up for this yet, please contact [employer] at [phone] to get signed up today. SONJA Award Nomination The SONJA (Diseases Attacking the Immune SYstem) Award is an international recognition program that honors and celebrates the skillful, compassionate care nurses provide every day. Anyone who experiences or observes amazing care being provided by a nurse is encouraged to submit a nomination. To nominate your nurse, use your smart phone to scan the QR code below. You may receive a survey from [employer] asking you to rate your care experience. Your feedback is important and will help us understand what we do well and how we can improve the quality of care we provide to you, your loved ones and our community. It?s an honor to serve you. Thank you for choosing [facility] Patient Education Materials: Full Liquid Diet A full liquid diet [...] Water. Coffee and tea (caffeinated or decaffeinated). Silverstreet. Liquid nutritional supplements. Soft drinks. Nondairy milks, such as almond, coconut, rice, or soy milk. Sweets and desserts Custard. Pudding. Flavored gelatin. Smooth ice cream (without nuts or candy pieces). Sherbet. Frozen ice pops. Cymraes ice. Pudding pops. Seasonings and condiments Salt and pepper. Spices. Vinegar. Ketchup. Yellow mustard. Smooth sauces, such as Hollandaise, cheese sauce, or white sauce. Soy sauce. Syrup. Honey. Jelly (without fruit pieces). Other foods Silverstreet powder. Cream soups. Strained soups. The items [...] provider. Document Revised: 05/07/2021 Document Reviewed: 05/07/2021 [employer] Patient Education ? 2022 Nextnav. Nausea, Adult Nausea is feeling like you [...] ? Low-calorie sports drinks. ? Eat bland, yipw-co-zekxwt foods in small amounts as you are able, such as: ? Bananas. ? Applesauce. ? Rice. ? Low-fat (lean) meats. ? Revere. ? Crackers. ? Avoid drinking fluids that have a lot of sugar or caffeine in them. This includes energy drinks, sports drinks, and soda. ? Avoid alcohol. ? Avoid spicy or fatty foods. General instructions ? Take rnvy-sax-akmxlwv and prescription medicines only as told by [...] cannot use soap and water, use hand stucco worker. ? Make sure that everyone in your [...] drink what your doctor tells you. Take lfoo-fyw-omebvzd and prescription medicines only as told by [...] provider. Document Revised: 01/24/2022 Document Reviewed: 01/24/2022 [employer] Patient Education ? 2022 [employer] Abdominal Pain, Adult Many things can cause belly (abdominal) pain. Most times, belly pain is not dangerous. Many cases of belly pain can be watched and treated at home. Sometimes, though, belly pain is serious. Your doctor will try to find the cause of your belly pain. Follow these instructions at home: Medicines ? Take vfuv-ihv-qpmdjmh and prescription medicines only as told by your doctor. ? Do not take medicines that help you poop (laxatives) unless told by your doctor. General instructions ? Watch your belly pain for any changes. ? Drink enough fluid to keep your pee (urine) pale yellow. ? Keep all follow-up visits as told by your doctor. This is important. Contact a doctor if: ? Your belly pain changes or gets worse. ? You are not hungry, or you lose weight without trying. ? You are having trouble pooping (constipated) or have watery poop (diarrhea) for more than 2?3 days. ? You have pain when you pee or poop. ? Your belly pain wakes you up at night. ? Your pain gets worse with meals, after eating, or with certain foods. ? You are vomiting and cannot keep anything down. ? You have a fever. ? You have blood in your pee. Get help right away if: ? Your pain does not go away as soon as your doctor says it should. ? You cannot stop vomiting. ? Your pain is only in areas of your belly, such as the right side or the left lower part of the belly. ? You have bloody or black poop, or poop that looks like tar. ? You have very bad pain, cramping, or bloating in your belly. ? You have signs of not having enough fluid or water in your body (dehydration), such as: ? Dark pee, very little pee, or no pee. ? Cracked lips. ? Dry mouth. ? Sunken eyes. ? Sleepiness. ? Weakness. ? You have trouble breathing or chest pain. Summary ? Many cases of belly pain can be watched and treated at home. ? Watch your belly pain for any changes. ? Take blxw-qty-mmvaqhc and prescription medicines only as told by your doctor. ? Contact a doctor if your belly pain changes or gets worse. ? Get help right away if you have very bad pain, cramping, or bloating in your belly. This information is not intended to replace advice given to you by your health care provider. Make sure you discuss any questions you have with your health care provider. Document Revised: 11/28/2019 Document Reviewed: 11/28/2019 [employer] Patient Education ? 2022 [employer] JENNIE Chaudhari VERONICA R , have received the following patient education materials/instructions and have verbalized understanding: Patient Education Materials: Full Liquid Diet; Nausea, Adult, Cpze-go-Cgcp; Abdominal Pain, Adult, Qkye-ro-Tgae Follow-up Instructions: With: Address: When: Harsha MARCANO, Fredi [facility] [place] [id number] In 3 days 01/15/2024 Patient Signature Date Clinician/Nurse Signature Date 01/12/2024 17:22:15 ED CLINICAL SUMMARY Observed: 01/12/2024 5:22 PM Status: F Source: [facility] REPOSITORY (Inserted Image. Unable to d isplay) [place] [id number] ED Clinical Summary Person Information Name: ROSE MARY SCHNEIDER [facility] Age: 18 Years : 2005 Sex: Female Language: Khmer PCP: Fredi Mcleod MD Marital Status: Single Phone: [phone] Visit Id: Visit Reason: Abdominal pain; ABDOMINAL [...] 01/12/2024 17:22:14 01/12/2024 17:22:14 01/12/2024 17:22:14 ADDRESS: [address] [place] [phone] PHYS DOC NOTES: MEDICAL INFORMATION: Prescriptions Given: New Medications [id number], [address] [place], [place] [id number], [phone] ondansetron (Zofran ODT 4 mg Tab-Dis) 1 [...] INFORMATION: Instructions: Full Liquid Diet; Nausea, Adult, Ybof-lq-Wmfl; Abdominal Pain, Adult, Iebv-gn-Rhjs Follow up: With: Address: When: Harsha MARCANO, Fredi [address] [place] [address] [place] [address] In 3 days 01/15/2024 DIAGNOSIS: 1:Generalized abdominal pain; 2:Nausea; 3:Elevated lipase ED NOTE-NURSING Observed: 01/12/2024 5:01 PM Status: F Source: [facility] REPOSITORY [facility] ED PATIENT EDUCATION NOTE Observed: 01/01 4:42 PM Status: C Source: [facility] REPOSITORY Gastroenterology Nausea, Adult Nausea is feeling like [...] ? Low-calorie sports drinks. ? Eat bland, wkwq-yv-awbvnd foods in small amounts as you are able, such as: ? Bananas. ? Applesauce. ? Rice. ? Low-fat (lean) meats. ? Revere. ? Crackers. ? Avoid drinking fluids that have a lot of sugar or caffeine in them. This includes energy drinks, sports drinks, and soda. ? Avoid alcohol. ? Avoid spicy or fatty foods. General instructions ? Take rbyn-jlg-lfvotpd and prescription medicines only as told by [...] cannot use soap and water, use hand stucco worker. ? Make sure that everyone in your [...] drink what your doctor tells you. Take nlaj-ayh-dlctfow and prescription medicines only as told by [...] provider. Document Revised: 01/24/2022 Document Reviewed: 01/24/2022 [employer] Patient Education ? 2022 Elsevier Inc.Abdominal Pain, Adult Many things can cause belly (abdominal) pain. Most times, belly pain is not dangerous. Many cases of belly pain can be watched and treated at home. Sometimes, though, belly pain is serious. Your doctor will try to find the cause of your belly pain. Follow these instructions at home: Medicines ? Take exsk-air-eallydv and prescription medicines only as told by your doctor. ? Do not take medicines that help you poop (laxatives) unless told by your doctor. General instructions ? Watch your belly pain for any changes. ? Drink enough fluid to keep your pee (urine) pale yellow. ? Keep all follow-up visits as told by your doctor. This is important. Contact a doctor if: ? Your belly pain changes or gets worse. ? You are not hungry, or you lose weight without trying. ? You are having trouble pooping (constipated) or have watery poop (diarrhea) for more than 2?3 days. ? You have pain when you pee or poop. ? Your belly pain wakes you up at night. ? Your pain gets worse with meals, after eating, or with certain foods. ? You are vomiting and cannot keep anything down. ? You have a fever. ? You have blood in your pee. Get help right away if: ? Your pain does not go away as soon as your doctor says it should. ? You cannot stop vomiting. ? Your pain is only in areas of your belly, such as the right side or the left lower part of the belly. ? You have bloody or black poop, or poop that looks like tar. ? You have very bad pain, cramping, or bloating in your belly. ? You have signs of not having enough fluid or water in your body (dehydration), such as: ? Dark pee, very little pee, or no pee. ? Cracked lips. ? Dry mouth. ? Sunken eyes. ? Sleepiness. ? Weakness. ? You have trouble breathing or chest pain. Summary ? Many cases of belly pain can be watched and treated at home. ? Watch your belly pain for any changes. ? Take quat-nsn-unylmmr and prescription medicines only as told by your doctor. ? Contact a doctor if your belly pain changes or gets worse. ? Get help right away if you have very bad pain, cramping, or bloating in your belly. This information is not intended to replace advice given to you by your health care provider. Make sure you discuss any questions you have with your health care provider. Document Revised: 11/28/2019 Document Reviewed: 11/28/2019 Elsevier Patient Education ? 2022 Elsevier Inc. U BETAHCG QUAL Collected: 4 4:20 PM Status: F Source: [facility] REPOSITORY TYPE CODE TESTS RESULT OUT OF RANGE REFERENCE UNITS LAB 2114-7([facility]) CHORIOGONADO TROPIN.BETA SUBUNIT:SCNC :PT:URINE:QN : Negative Normal Performed By: #### [id number] #### [facility] [address] [place] [address] UA WITH CULT RFLX Collected: 4 4:20 PM Status: F Source: [facility] REPOSITORY TYPE CODE TESTS RESULT OUT OF RANGE REFERENCE UNITS LAB 9194-2([facility]) CLASS:TYPE:PT :URINE COLLECTION METHOD:NOM:* Random Urine Normal LAB 21781-4([facility] ) COLOR:TYPE:PT :URINE:NOM:AU TO Light-Yellow Normal Yellow Result Comment: Microscopic readings are only performed on those samples that meet specific criteria set forth by [facility]. LAB 51688-3([facility] ) CLARITY:TYPE: PT:URINE:NOM: Clear Normal Clear LAB 5811-5([facility]) SPECIFIC GRAVITY:RDEN: PT:URINE:SEMI QN:TEST STRIP 1.021 Unknown 1.005-1.030 LAB 5803-2([facility]) PH:LSCNC:PT:U RINE:SEMIQN:T EST STRIP 6.5 Unknown 5.0-9.0 LAB 96031-2([facility] ) PROTEIN:PRTHR :PT:URINE:ORD :TEST STRIP Negative Normal Negative mg/dL LAB 01963-0(LOINC ) GLUCOSE:PRTHR :PT:URINE:ORD :TEST STRIP Negative Normal Negative mg/dL LAB 86562-3(LOINC ) KETONES:PRTHR :PT:URINE:ORD :TEST STRIP.AUTOMAT ED Negative Normal Negative mg/dL LAB 43980-1(LOINC ) BILIRUBIN:PRT HR:PT:URINE:O RD:TEST STRIP.AUTOMAT ED Negative Normal Negative mg/dL LAB 69410-3(LOINC ) HEMOGLOBIN:MC NC:PT:URINE:S EMIQN:TEST STRIP.AUTOMAT ED 2+ Abnormal Negative mg/dL LAB 23069-2(INC ) NITRITE:PRTHR :PT:URINE:ORD :TEST STRIP.AUTOMAT ED Negative Normal Negative mg/dL LAB 60998-1([facility] ) UROBILINOGEN: MCNC:PT:URINE :SEMIQN:TEST STRIP Negative Normal Negative mg/dL LAB 45574-5([facility] ) LEUKOCYTE ESTERASE:PRTH R:PT:URINE:OR D:TEST STRIP.AUTOMAT ED Negative Normal Negative CD:35219 13196 LAB 30786-5([facility] ) LEUKOCYTES:NA EPHRAIM:PT:URINE SED:QN:AUTOMA ULYSSES COUNT 0-5 Normal 0-5 CD:49121 40209 LAB 28061-9([facility] ) ERYTHROCYTES: PRTHR:PT:URIN E SED:ORD:MICRO SCOPY.LIGHT 0-3 Normal 0-3 CD:01482 54115 LAB 24206-9([facility] ) EPITHELIAL CELLS.SQUAMOU S:NARIC:PT:UR INE SED:QN:AUTOMA ULYSSES COUNT 3-4 Unknown CD:60604 44205 LAB 57111-3([facility] ) MUCUS:PRTHR:P T:URINE:ORD:A UTOMATED Trace Normal Negative CD:92191 41276 Performed By: #### [id number] #### [facility] [address] [place] [address] EGFR Collected: 3:49 PM Status: F Source: [facility] REPOSITORY Order Comment: Order added b y Discern Expert. TYPE CODE TESTS RESULT OUT OF RANGE REFERENCE UNITS LAB 35640275([facility]) eGFR 128 Normal >=59 mL/min/1 . 73 m2 Performed By: #### [id number] #### [facility] [address] [place] [address] CBC W/ AUTO DIFF Collected: 01/12/2024 3:49 PM Statu s: F Source: [facility] REPOSITORY TYPE CODE TESTS RESULT OUT OF RANGE REFERENCE UNITS LAB 84229-0([facility]) LEUKOCYTES 6.9 Normal 4.0-11.0 E9/L LAB 789-8([facility]) ERYTHROCYTES:NCN C:PT:BLD:QN:AUTO MATED COUNT 4.4 Normal 4.3-5.9 E12/L LAB 718-7([facility]) HEMOGLOBIN:MCNC: PT:BLD:QN: 12.7 Normal 12.0-16.0 gm/dL LAB 4544-3([facility]) HEMATOCRIT:VFR:P T:BLD:QN:AUTOMAT ED COUNT 37.3 Normal 34.0-46.0 % LAB 788-0([facility]) ERYTHROCYTE DISTRIBUTION WIDTH:RATIO:PT:R BC:QN:AUTOMATED COUNT 13.9 Normal 10.9-14.2 % LAB 785-6([facility]) ERYTHROCYTE MEAN CORPUSCULAR HEMOGLOBIN:ENTMA SS:PT:RBC:QN:AUT OMATED COUNT 28.5 Normal 27.0-34.0 pg LAB 786-4([facility]) ERYTHROCYTE MEAN CORPUSCULAR HEMOGLOBIN CONCENTRATION:MC NC:PT:RBC:QN:AUT OMATED COUNT 34.0 Normal 31.4-36.0 gm/dL LAB 787-2([facility]) ERYTHROCYTE MEAN CORPUSCULAR VOLUME:ENTVOL:PT :RBC:QN:AUTOMATE D COUNT 83.9 Normal 80.0-100.0 fL LAB 73388-7([facility]) PLATELET MEAN VOLUME:ENTVOL:PT :BLD:QN:AUTOMATE D COUNT 7.5 Normal 6.4-10.8 fL LAB 02597358([facility] ) Platelet 454.0 Normal 150.0-500.0 E9/L LAB 06467-3([facility]) NEUTROPHILS/100 LEUKOCYTES:NFR:P T:BLD:QN: 55.0 Normal 36.0-75.0 % LAB 731-0(INC) LYMPHOCYTES:NCNC :PT:BLD:QN:AUTOM ATED COUNT 33.8 Normal 14.0-50.0 % LAB 742-7([facility]) MONOCYTES:NCNC:P T:BLD:QN:AUTOMAT ED COUNT 0.6 Normal 0.2-1.0 E9/L LAB 713-8([facility]) EOSINOPHILS/100 LEUKOCYTES:NFR:P T:BLD:QN:AUTOMAT ED COUNT 2.3 Normal 0.0-8.0 % LAB 704-7([facility]) BASOPHILS:NCNC:P T:BLD:QN:AUTOMAT ED COUNT 0.4 Normal 0.0-2.0 % LAB 751-8([facility]) NEUTROPHILS:NCNC :PT:BLD:QN:AUTOM ATED COUNT 3.8 Normal 2.0-7.5 E9/L LAB 53167-5([facility]) LYMPHOCYTES:NCNC :PT:BLD:QN: 2.3 Normal 1.0-4.0 E9/L LAB 26519-5([facility]) EOSINOPHILS:NCNC :PT:BLD:QN: 0.2 Normal 0.0-0.5 E9/L LAB 11882-9([facility]) BASOPHILS/LEUKOC YTES:NFR.DF:PT:B LD:QN:AUTOMATED COUNT 0.0 Normal 0.0-0.2 E9/L Performed By: #### [id number] # ### [facility] [address] [place] [address] CMP Collected: 4 3:49 PM Status: F Source: [facility] REPOSITORY TYPE CODE TESTS RESULT OUT OF RANGE REFERENCE UNITS LAB 2345-7([facility]) GLUCOSE:MCNC: PT:SER/PLAS:Q N: 89 Normal 55-199 mg/dL LAB 3094-0([facility]) UREA NITROGEN:MCNC :PT:SER/PLAS: QN: 8 Normal 5-21 mg/dL LAB 2160-0([facility]) CREATININE:MC NC:PT:SER/RAPHAEL S:QN: 0.7 Normal 0.5-1.3 mg/dL LAB 83033-7([facility]) CALCIUM:MCNC: PT:SER/PLAS:Q N: 9.2 Normal 8.9-11.1 mg/dL LAB 2951-2([facility]) SODIUM:SCNC:P T:SER/PLAS:QN : 137 Normal 135-145 mmol/L LAB 2823-3([facility]) POTASSIUM:SCN C:PT:SER/PLAS :QN: 3.7 Normal 3.5-5.3 mmol/L LAB 2075-0([facility]) CHLORIDE:SCNC :PT:SER/PLAS: QN: 105 Normal 101-111 mmol/L LAB 2027-9([facility]) CARBON DIOXIDE:SCNC: PT:SER/PLAS:Q N: 27 Normal 21-31 mmol/L LAB 6768-6([facility]) ALKALINE PHOSPHATASE:C CNC:PT:SER/PL :QN: 49 Normal 21-98 Int._Unit /L LAB 1974-2([facility]) BILIRUBIN:MCN C:PT:SER/PLAS :QN: 0.3 Normal 0.0-1.1 mg/dL LAB 1751-7([facility]) ALBUMIN:MCNC: PT:SER/PLAS:Q N: 3.7 Normal 3.3-5.0 gm/dL LAB 2885-2([facility]) PROTEIN:MCNC: PT:SER/PLAS:Q N: 7.4 Normal 6.0-7.8 gm/dL LAB 1744-2([facility]) ALANINE AMINOTRANSFER ASE:CCNC:PT:S ER/PLAS:QN:NO ADDITION OF P-5'-P 12 Normal 6-46 Int._Unit /L LAB 1920-8([facility]) ASPARTATE AMINOTRANSFER ASE:CCNC:PT:S ER/PLAS:QN: 12 Normal 5-43 Int._Unit /L LAB 3097-3([facility]) UREA NITROGEN/CREA TININE:MRTO:P T:SER/PLAS:QN : 11 Normal 10-20 No Units LAB 93214-8([facility]) ANION GAP:SCNC:PT:S ER/PLAS:QN: 9 Normal 6-16 mEq/L LAB 46715-6([facility]) GLOBULIN:MCNC :PT:SER:QN:CA LCULATED 3.7 Normal 1.4-4.0 gm/dL LAB 24590-8([facility]) ALBUMIN/GLOBU CHARLES:MCRTO:PT: SER:QN: 1.0 Low 1.1-2.2 Performed By: #### [id number] # ### [facility] [address] [place] [address] LIPASE LEVEL Collected: 01/12/2024 3:49 PM Status: F Source: [facility] REPOSITORY TYPE CODE TESTS RESULT OUT OF RANGE REFERENCE UNITS LAB 3040-3(LOINC) TRIACYLGLYCEROL LIPASE:CCNC:PT:SER/ PLAS:QN: 158 High 13-58 unit/L Performed By: #### [id number] # ### [facility] [address] [place] [address] ED NOTE-PHYSICIAN Observed: 01/12/2024 3:01 PM Status: F Source: [facility] REPOSITORY Basic Information Time Seen: Alexandre MELÉNDEZ, Liss [...] against CT imaging as it will not ticket dispenser changer. Patient will be sent home with pain [...] Nausea/Vomiting, # 12 tab(s), Refills(s) 0, Pharmacy: [facility] #[id number], 165.1, cm, 01/12/24 15:00:00 EDT, Height/Length Dosing, 117.7, kg, 01/12/24 15:00:00 EDT, Weight Dosing 3. Elevated lipase (R74.8: Abnormal levels of other serum enzymes) Ordered: tramadol, 1-2 tabs, Oral, q6hr, PRN Pain, # 8 tab(s), Refills(s) 0, Pharmacy: [facility] #[id number], 165.1, cm, 01/12/24 15:00:00 EDT, Height/Length Dosing, 117.7, kg, 01/12/24 15:00:00 EDT, Weight Dosing Orders: ketorolac, 30 mg = 1 mL, Injection, IV Push, Once, Stop date 01/12/24 15:39:00 EDT, STAT, Start date 01/12/24 15:39:00 EDT, 01/12/24 15:39:00 EDT ondansetron, 4 mg = 2 mL, Injection, IV Push, Once, Stop date 01/12/24 15:39:00 EDT, STAT, Start date 01/12/24 15:39:00 EDT, 01/12/24 15:39:00 EDT Sodium Chloride 0.9% intravenous solution 1,000 mL, 1,000 mL, IV, bolus, STAT, Start date 01/12/24 15:39:00 EDT, Total volume (mL): 1,000, Bolus Dose: 1,000 mL, 117.7 kg, 2.32, m2 CBC w/ Auto Diff Comprehensive Metabolic Panel eGFR Lipase Level U Beta Hcg Qual UA with Cult Rflx Medications Administered Given Sodium Chloride 0.9% IV Britney 1000 mL 1,000 mL, 1000 mL, IV ketorolac 30 mg/mL Inj 1 mL, 30 mg, IV Push ondansetron 4 mg/2 mL Inj, 4 mg, IV Push Disposition Plan Patient Discharge Condition Improved Discharge Disposition Home Discharge Prescription List Prescriptions traMADOL 50 mg Tab, 1-2 tabs, Oral, q6hr, PRN Zofran ODT 4 mg Tab-Dis, 4 mg= 1 tab(s), Oral, q8hr, PRN Follow-up With When Contact Information Fredi Mcleod MD In 3 days 01/15/2024 EDT [address] [place] [address]- Additional Instructions: Additional Instructions: Call the office of your primary care doctor to arrange for follow-up within the above-stated timeframe. Follow- up with your primary care doctor about this ED visit. You should review your labs, imaging, and diagnoses from this ED visit with your primary care physician. If you were prescribed medications you should discuss possible side-effects and drug interactions with your pharmacist. Call 911 or go to the nearest Emergency Department if you develop any new or worsening symptoms. Patient Education Full Liquid Diet Nausea, Adult, Fvpq-iy-Dohv Abdominal Pain, Adult, Qdcq-iu-Yhqk Attestation I performed a substantive part of the MDM during the patient?s E/M visit. I personally made or approved the documented management plan and acknowledge its risk of complications. This report was transcribed using voice recognition software. Every effort was made to ensure accuracy, however, inadvertently computerized senior financial reporting analyst management be present. Problem List/Past Medical History Ongoing Smoker Historical Seizure Procedure/Surgical History Myringotomy and drainage of middle ear. Medications Inpatient Sodium Chloride 0.9% IV Britney 1000 mL 1,000 mL, 1000 mL, IV Home APAP/butalbital/caffeine 325 mg-50 mg-40 mg Tab, 1 tab(s), Oral, q4hr, PRN cetirizine 5 mg oral tablet, 10 mg= 2 tab(s), Oral, Daily cloNIDine 0.1 mg tab, 0.1 mg= 1 tab(s), Oral, Daily FLUoxetine 40 mg Cap Junel Fe 08/22 oral tablet Keppra 500 mg Tab, 500 mg= 1 tab(s), Oral, BID Lamictal 25 mg Tab, 25 mg= 1 tab(s), Oral, Daily lurasidone 60 mg oral tablet melatonin-pyridoxine 3 mg-10 mg oral tablet, extended release Protonix 40 mg tablet Allergies No Known Allergies Social History Alcohol Substance Abuse Tobacco Current vaping or e-cigarette use Smokeless Tobacco Use:., 12/19/2022 Never (less than 100 in lifetime) Tobacco Use:., 12/04/2021 Lab Results WBC: 6.9 E9/L (01/12/24 15:49:00) RBC: 4.4 E12/L (01/12/24 15:49:00) HGB: 12.7 gm/dL (01/12/24 15:49:00) Hct: 37.3 % (01/12/24 15:49:00) MCV: 83.9 fL (01/12/24 15:49:00) MCH: 28.5 pg (01/12/24 15:49:00) MCHC: 34 gm/dL (01/12/24 15:49:00) RDW: 13.9 % (01/12/24 15:49:00) Platelet: 454 E9/L (01/12/24 15:49:00) MPV: 7.5 fL (01/12/24 15:49:00) Neutro Auto: 55 % (01/12/24 15:49:00) Lymph Auto: 33.8 % (01/12/24 15:49:00) Fulton Auto: 8.5 % (01/12/24 15:49:00) Eos Auto: 2.3 % (01/12/24 15:49:00) Basophil Auto: 0.4 % (01/12/24 15:49:00) Neutro Absolute: 3.8 E9/L (01/12/24 15:49:00) Lymph Absolute: 2.3 E9/L (01/12/24 15:49:00) Fulton Absolute: 0.6 E9/L (01/12/24 15:49:00) Eos Absolute: 0.2 E9/L (01/12/24 15:49:00) Basophil Absolute: 0 E9/L (01/12/24 15:49:00) Glucose Lvl: 89 mg/dL (01/12/24 15:49:00) BUN: 8 mg/dL (01/12/24 15:49:00) Creatinine: 0.7 mg/dL (01/12/24 15:49:00) eGFR: 128 mL/min/1.73 m2 (01/12/24 15:49:00) BUN/Creat Ratio: 11 (01/12/24 15:49:00) Sodium Lvl: 137 mmol/L (01/12/24 15:49:00) Potassium Lvl: 3.7 mmol/L (01/12/24 15:49:00) Chloride: 105 mmol/L (01/12/24 15:49:00) CO2: 27 mmol/L (01/12/24 15:49:00) AGAP: 9 mEq/L (01/12/24 15:49:00) Calcium Lvl: 9.2 mg/dL (01/12/24 15:49:00) Alk Phos: 49 Int._Unit/L (01/12/24 15:49:00) ALT: 12 Int._Unit/L (01/12/24 15:49:00) AST: 12 Int._Unit/L (01/12/24 15:49:00) Total Protein: 7.4 gm/dL (01/12/24 15:49:00) Albumin Lvl: 3.7 gm/dL (01/12/24 15:49:00) Globulin: 3.7 gm/dL (01/12/24 15:49:00) A/G Ratio: 1 Low (01/12/24 15:49:00) Bili Total: 0.3 mg/dL (01/12/24 15:49:00) Lipase Lvl: 158 unit/L High (01/12/24 15:49:00) UA Spec Desc: Random Urine (01/12/24 16:20:00) UA Color: Light-Yellow (01/12/24 16:20:00) UA Clarity: Clear (01/12/24 16:20:00) UA Spec Grav: 1.021 (01/12/24 16:20:00) UA pH: 6.5 (01/12/24 16:20:00) UA Protein: Negat (01/12/24 16:20:00) UA Glucose: Negat (01/12/24 16:20:00) UA Ketones: Negat (01/12/24 16:20:00) UA Bili: Negat (01/12/24 16:20:00) UA Blood: 2+ Abnormal (01/12/24 16:20:00) UA Nitrite: Negat (01/12/24 16:20:00) UA Urobilinogen: Negat (01/12/24 16:20:00) UA Leuk Est: Negat (01/12/24 16:20:00) UA RBC: 0-3 (01/12/24 16:20:00) UA Squam Epithelial: 3-4 (01/12/24 16:20:00) UA WBC: 0-5 (01/12/24 16:20:00) UA Mucous: Trace (01/12/24 16:20:00) U beta hCG Ql: Negative (01/12/24 16:20:00) Diagnostic Results No qualifying data available. Result Comment: Electronical ly Signed By: Liss Schroeder PA-C\.br\Date and Time Signed: 01/12/24 17:06 EDT\.br\Electronically Co-Signed By: Markus Whipple DO\.br\Date and Time Co-Signed: 01/15/24 07:02 EDT CONSENT FOR TREATMENT Observed: 01/12/20 2:43 PM Status: F Source: [facility] REPOSITORY [id number]#[id number] EEG Observed: 05/15/2023 12:46 PM Status: F Source: [facility] REPOSITORY This is a continuation of previous 24-hour recording. This is a continuous video electroencephalogram performed on an 17-year-old female using standard 10/20 lead placement and a [employer] system. All data were available for reformatting [...] required. Melecio Rubio M.D. ca Dictated: 05/15/2023 [id number] Typed: 05/15/2023 Result Comment: Electronical ly Signed By: Melecio Rubio MD\.br\Date and Time Signed: 05/23/23 08:20 EDT EEG Observed: 05/15/2023 12:42 PM Status: F Source: [facility] REPOSITORY This is a long-term continuo us video electroencephalogram monitor performed on an 17-year-old female using standard 10/20 lead placement and a [employer] system. All data were obtained digitally and [...] stimulation. Melecio Rubio M.D. ca Dictated: 05/15/2023 [id number] Typed: 05/15/2023 Result Comment: Electronical ly Signed By: Ramiro MARCANO, Melecio\.br\Date and Time Signed: 05/23/23 08:20 EDT DISCHARGE SUMMARY Observed: 05/14/2023 6:52 AM Status: F Source: [facility] REPOSITORY Admission and Discharge Info rmation Admit Date/Time:05/11/2023 07:29 Admitting Physician - Akosua ROSAS MD Referring Physician - PEYTON QUIROZ CNP Admitting [...] 46.4 % Lymph Auto - 41.3 % Fulton Auto - 8.8 % Eos Auto - 3.1 % Basophil Auto - 0.4 % Neutro Absolute - 2.6 E9/L Lymph Absolute - 2.3 E9/L Fulton Absolute - 0.5 E9/L Eos Absolute - 0.2 E9/L Basophil Absolute - 0.0 E9/L Capillary Glucose POC (05/12/2023) Glucose Cap - 84 mg/dL POC Device SN - [id number] POC User ID - [id number] POC Username - NERY ALCALA CBC w/ [...] Follow-up With When Contact Information Joann MACK [facility] [address] [place] [address]- Business (1) Additional Instructions: Call for hospital followup appointment 2-3 weeks Fredi [address] [place] [address]- Business (1) Additional Instructions: Call for followup appointment Patient Education Seizure, Adult Result Comment: Electronical ly Signed By: Shazia NUNES\.br\Date and Time Signed: 05/24/23 18:49 EDT\.br\Electronically Co-Signed By: Akosua ROSAS MD\.br\Date and Time Co-Signed: 05/25/23 07:00 EDT DISCHARGE INSTRUCTIONS Observed: 023 3:52 PM Status: F Source: [facility] REPOSITORY [id number] MONITOR RECORD Observed: 05/13/2023 1:25 PM Status: F Source: [facility] REPOSITORY [id number]#[id number] INPATIENT PATIENT SUMMARY Observed: 05/03 12:40 PM Status: F Source: [facility] REPOSITORY ROSE MARY SCHNEIDER :2005 Visit Date:05/11/2023 Inpatient [...] Pending Diagnostic Test Results None Pharmacy Information [facility] Discharge Instructions NO DRIVING until cleared by neurology New Follow Up Appointments after Discharge Follow Up with Joann Zamorano When: Comments: Call for hospital followup appointment 2-3 weeks Where: [facility] [place] [address] [place] [address]- Business (1) Follow Up with Fredi Mcleod When: Comments: Call for followup appointment Where: [address] [facility] [place] [place] [address]- Business (1) Medications What How Much When Instructions Next Dose Changed levetiracetam (Keppra 500 mg Tab) 1 Tablets By Mouth 2 times a day Pickup at [facility]/pharmacy #[id number] 10 9pm Unchanged APAP/ butalbital/ caffeine (APAP/ [...] (Protonix 40 mg tablet) Resume Pharmacy Information [facility]/pharmacy #[id number]: [address] [place] [phone] Test Results CBC BMP WBC: 5.6 E9/L [...] Kidney problems or liver problems. ? Metabolic disorders or other conditions that are passed from parent to child (are inherited). ? Reaction to a substance, such as a drug or a medicine, or suddenly stopping the use of a substance (withdrawal). ? A stroke. ? Developmental disorders such as autism spectrum disorder or cerebral palsy. In some cases, the cause of a seizure may not be known. Some people who have a seizure never have another one. A person who has repeated seizures over time without a clear cause has a condition called epilepsy. What increases the risk? You are more likely to develop this condition if: ? You have a family history of epilepsy. ? You have had a tonic?clonic seizure before. This type of seizure causes tightening (contraction) of the muscles of the whole body and loss of consciousness. ? You have a history of head trauma, [...] include the following: Symptoms during a seizure ? Uncontrollable shaking (convulsions) with fast, jerky movements of muscles. ? Stiffening of the body. ? Breathing problems. ? Confusion, staring, or unresponsiveness. ? Head nodding, eye blinking or fluttering, or rapid eye movements. ? Drooling, grunting, or making clicking sounds with your mouth. ? Loss of bladder control and bowel control. Symptoms before a seizure ? Fear or anxiety. ? Nausea. ? Vertigo. This is a feeling like: ? You are moving when you are not. ? Your surroundings are moving when they are not. ? D?j? vu. This is a feeling of having seen or heard something before. ? Odd tastes or smells. ? Changes in vision, such as seeing flashing lights or spots. Symptoms after a seizure ? Confusion. ? Sleepiness. ? Headache. ? Sore muscles. How is this diagnosed? This condition may be diagnosed based on: ? A description of your symptoms. Video of your seizures can be helpful. ? Your medical history. ? A physical exam. You may also have tests, including: ? Blood tests. ? CT scan. ? MRI. ? Electroencephalogram (EEG). This test measures electrical activity in the brain. An EEG can predict whether seizures will return. ? A spinal tap, also called a lumbar puncture. This is the removal and testing of fluid that surrounds the brain and spinal cord. How is this treated? Most seizures will stop on their own in less than 5 minutes, and no treatment is needed. Seizures that last longer than 5 minutes will usually need treatment. Seizures may be treated with: ? Medicines given through an IV. ? Avoiding known triggers, such as medicines that you take for another condition. ? Medicines to control seizures or prevent future seizures (antiepileptics), if epilepsy caused your seizures. ? Medical devices to prevent and control seizures. ? Surgery to stop seizures or to reduce how often seizures happen, if you have epilepsy that does not respond to medicines. ? A diet low in carbohydrates and high in fat (ketogenic diet). Follow these instructions at home: Medicines ? Take zsmp-jaj-uboamtt and prescription medicines only as told by your health care provider. ? Avoid any substances that may prevent your medicine from working properly, such as alcohol. Activity ? Follow instructions about activities, such as driving or swimming, that would be dangerous if you had another seizure. Wait until your health care provider says it is safe to do them. ? If you live in the [place] check with your local department of motor vehicles (DMV) to find out about local driving laws. Each state has specific rules about when you can legally drive again. ? Get enough rest. Lack of sleep can make seizures more likely to occur. Educating others ? Teach friends and family what to do if you have a seizure. They should: ? Help you get down to the ground, to prevent a fall. ? Cushion your head and move items away from your body. ? Loosen any tight clothing around your neck. ? Turn you on your side. If you vomit, this helps keep your airway clear. ? Know whether or not you need emergency care. ? Stay with you until you recover. ? Also, tell them what not to do if you have a seizure. Tell them: ? They should not hold you down. Holding you down will not stop the seizure. ? They should not put anything in your mouth. General instructions ? Avoid anything that has ever triggered a seizure for you. ? Keep a seizure diary. Record what you remember about each seizure, especially anything that might have triggered it. ? Keep all follow-up visits. This is important. Contact a health care provider if: ? You have another seizure or seizures. Call each time you have a seizure. ? Your seizure pattern changes. ? You continue to have seizures with treatment. ? You have symptoms of an infection or illness. Either of these might increase your risk of having a seizure. ? You are unable to take your medicine. Get help right away if: ? You have: ? A seizure that does not stop after 5 minutes. ? Several seizures in a row without a complete recovery between seizures. ? A seizure that makes it harder to breathe. ? A seizure that leaves you unable to speak or use a part of your body. ? You do not wake up right away after a seizure. ? You injure yourself during a seizure. ? You have confusion or pain right after a seizure. These symptoms may represent a serious problem that is an emergency. Do not wait to see if the symptoms will go away. Get medical help right away. Call your local emergency services (911 in the [place] Do not drive yourself to the hospital. Summary ? Seizures are caused by abnormal electrical and chemical activity in the brain. The activity disrupts normal brain function and can cause various symptoms. ? Seizures have many causes, including illness, head injuries, low levels of blood sugar or salt, and certain conditions. ? Most seizures will stop on their own in less than 5 minutes. Seizures that last longer than 5 minutes are a medical emergency and need treatment right away. ? Many medicines are used to treat seizures. Take jele-lvi-qtvmskr and prescription medicines only as told by your health care provider. This information is not intended to replace advice given to you by your health care provider. Make sure you discuss any questions you have with your health care provider. Document Revised: 01/25/2021 Document Reviewed: 01/25/2021 [employer] Patient Education ? 2022 [employer] Medication Education levetiracetam (oral/injection) (RAMILA rogers) Elepsia XR, Keppra, Keppra XR, Roweepra, Spritam What is the most important information I should know about levetiracetam? Some people have thoughts about suicide while taking levetiracetam. Stay alert to changes in your mood or symptoms. Report any new or worsening symptoms to your doctor. Seizures may increase if you stop using levetiracetam suddenly. What is levetiracetam? Levetiracetam is used to treat certain types of seizures in people with epilepsy, including partial onset seizures, myoclonic seizures, and tonic-clonic seizures. When used for partial onset seizures: ? Extended-release (XR) levetiracetam is for adults and children at least 12 years old. ? Spritam is for children at least 4 years old who weigh at least 44 pounds (20 kilograms). ? Roweepra and Keppra may be used in children as young as 1 month old. Levetiracetam is also used with other seizure medications to treat tonic-clonic seizures in people who are at least 6 years old, and myoclonic seizures in people at least 12 years old. Levetiracetam injection is for use only in people who are least 16 years old. Levetiracetam may also be used for purposes not listed in this medication guide. What should I discuss with my healthcare provider before taking levetiracetam? You should not use levetiracetam if you are allergic to it. Tell your doctor if you have ever had: ? kidney disease (or if you are on dialysis); ? depression or other mood problems; ? mental illness or psychosis; or ? suicidal thoughts or actions. Do not give this medicine to a child without medical advice. Different brands of this medicine are for use only in children of certain ages. Some people have thoughts about suicide while taking levetiracetam. Your doctor will need to check your progress at regular visits. Your family or other caregivers should also be alert to changes in your mood or symptoms. Do not start or stop seizure medication during without your doctor's advice. Having a seizure during could harm both mother and baby. Tell your doctor if you become . Your dose needs may be different during . If you are , your name may be listed on a registry to track the effects of levetiracetam on the baby. Ask a doctor if it is safe to breastfeed while using this medicine. How should I take levetiracetam? Follow all directions on your prescription label and read all medication guides or instruction sheets. Your doctor may occasionally change your dose. Use the medicine exactly as directed. Levetiracetam oral is taken by mouth at the same time each day, with or without food. Levetiracetam injection is given in a vein if you are unable to take the medicine by mouth. Your dose needs may change if you switch to a different brand, strength, or form of this medicine. A child's dose needs may change if the child gains or loses weight. Avoid medication errors by using only the brand, form, and strength your doctor prescribes. Read and carefully follow any Instructions for Use provided with your medicine. Ask your doctor or pharmacist if you do not understand these instructions. Measure liquid medicine with the supplied syringe or a dose-measuring device (not a kitchen spoon). Swallow the extended-release tablet whole and do not crush, chew, or break it. Do not swallow or chew a Spritam dispersible tablet for oral suspension. Place the tablet on your tongue and take a sip of liquid. Do not swallow until the tablet has completely dissolved on your tongue. Your kidney function may need to be tested. Use all seizure medications as directed. Do not change your dose or stop using a medicine without your doctor's advice. Seizures may increase if you stop using levetiracetam suddenly.. Ask your doctor before stopping the medicine. Wear a medical alert tag or carry an ID card to let others know you have seizures. Store at room temperature away from moisture, heat, and light. What happens if I miss a dose? Take the medicine as soon as you can, but skip the missed dose if it is almost time for your next dose. Do not take two doses at one time. Get your prescription refilled before you run out of medicine completely. What happens if I overdose? Seek emergency medical attention or call the Poison Help line at . Overdose symptoms may include extreme drowsiness, agitation, aggression, shallow breathing, weakness, or fainting. What should I avoid while taking levetiracetam? Avoid driving or hazardous activity until you know how this medicine will affect you. Dizziness or drowsiness can cause falls, accidents, or severe injuries. What are the possible side effects of levetiracetam? Get emergency medical help if you have signs of an allergic reaction (hives, difficult breathing, swelling in your face or throat) or a severe skin reaction (fever, sore throat, burning in your eyes, skin pain, red or purple skin rash that spreads and causes blistering and peeling). Report any new or worsening symptoms to your doctor, such as: mood or behavior changes, depression, anxiety, panic attacks, trouble sleeping, or if you feel agitated, hostile, irritable, hyperactive (mentally or physically), or have thoughts about suicide or hurting yourself. Call your doctor at once if you have: ? unusual changes in mood or behavior (unusual risk-taking behavior, being irritable or talkative); ? confusion, hallucinations, extreme drowsiness, feeling very weak or tired; ? loss of balance or coordination, problems with walking or movement; ? a skin rash, no matter how mild; ? easy bruising, unusual bleeding; or ? fever, chills, weakness, or other signs of infection. Common side effects may include: ? dizziness, drowsiness, tiredness, weakness; ? feeling aggressive or irritable; ? loss of appetite; ? stuffy nose; or ? infection. This is not a complete list of side effects and others may occur. Call your doctor for medical advice about side effects. You may report side effects to FDA at 3-387-TDG-0131. What other drugs will affect levetiracetam? Other drugs may affect levetiracetam, including prescription and fmdf-axk-whflzsx medicines, vitamins, and herbal products. Tell your doctor about all other medicines you use. Where can I get more information? Your pharmacist can provide more information about levetiracetam. Remember, keep this and all other medicines out of the reach of children, never share your medicines with others, and use this medication only for the indication prescribed. Every effort has been made to ensure that the information provided by [employer] is accurate, up-to-date, and complete, but no guarantee is made to that effect. Drug information contained herein may be time sensitive. [employer] information has been compiled for use by healthcare practitioners and consumers in the [place] and therefore [employer] does not warrant that uses outside of the [place] are appropriate, unless specifically indicated otherwise. [employer] drug information does not endorse drugs, diagnose patients or recommend therapy. [employer] drug information is an informational resource designed to assist licensed healthcare practitioners in caring for their patients and/or to serve consumers viewing this service as a supplement to, and not a substitute for, the expertise, skill, knowledge and judgment of healthcare practitioners. The absence of a warning for a given drug or drug combination in no way should be construed to indicate that the drug or drug combination is safe, effective or appropriate for any given patient. [employer] does not assume any responsibility for any aspect of healthcare administered with the aid of information [employer] provides. The information contained herein is not intended to cover all possible uses, directions, precautions, warnings, drug interactions, allergic reactions, or adverse effects. If you have questions about the drugs you are taking, check with your doctor, nurse or pharmacist. Copyright 9598-7933 [employer]. Version: 14.01. Revision Date: 01/04/2021. Common Emergency Awareness Tips IS IT A STROKE? Act FAST and Check for these signs: FACE Does the face look uneven? ARM Does one arm drift down? SPEECH Does their speech sound strange? TIME Call at any sign of stroke Heart Attack Signs Chest discomfort: Most heart attacks involve discomfort in the center of the chest and lasts more than a few minutes, or goes away and comes back. It can feel like uncomfortable pressure, squeezing, fullness or pain. Discomfort in upper body: Symptoms can include pain or discomfort in one or both arms, back, neck, jaw or stomach. Shortness of breath: With or without discomfort. Other signs: Breaking out in a cold sweat, nausea, or lightheaded. Remember, MINUTES DO MATTER. If you experience any of these heart attack warning signs, call to get immediate medical attention! Patient Survey You may receive a survey in the mail asking you about your stay with us. We want to hear from you, please share your experience with us by completing your survey. Thank you for choosing [facility]. Patient Portal You may access all of your results and other medical record information on our secure patient portal. If you are not signed up for this yet, please contact [facility] at [phone] to get signed up today. Patient Name: ROSE MARY SCHNEIDER I have received this information and my questions have been answered. 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 Unable to d isplay) [place] [address] Patient Discharge Instructions PERSON INFORMATION Name: ROSE MARY SCHNEIDER Date of : 2005 Current Date: 05/13/2023 12:04:22 PHYSICIANS Admitting Physician: Akosua ROSAS MD Primary Care Physician: Fredi Mcleod MD PCP Comment: Discharge Diagnosis: 1:Seizures; 2:History [...] Follow up: With: Address: When: Joann Zamorano [facility], [address] [place] [address] Business (1) Comments: Call for hospital followup appointment 2-3 weeks With: Address: When: Fredi Mcleod [facility] [facility], [place] [address] Business (1) Comments: Call for followup appointment In the event that this physician does not participate in your insurance network, please consult with your insurance company to find a nearby participating provider. Comment: JENNIE Chaudhari VERONICA R, have received the attached patient education materials/instructions and have verbalized understanding: Patient Signature Date Clinican/Nurse Signature Date HERE ARE THE MEDICATION CHANGES THAT OCCURRED DURING YOUR HOSPITAL STAY Medications to Continue Taking That Have Changed [facility]/pharmacy #[id number], [address] [place], [place] [id number], [phone] START: levetiracetam (Keppra 500 mg Tab) 1 [...] FOR INSOMNIA. pantoprazole (Protonix 40 mg tablet) Pharmacy Information: [facility] [place] Comment: PATIENT EDUCATION INFORMATION Instructions: Seizure, Adult A seizure is a sudden [...] Kidney problems or liver problems. ? Metabolic disorders or other conditions that are passed from parent to child (are inherited). ? Reaction to a substance, such as a drug or a medicine, or suddenly stopping the use of a substance (withdrawal). ? A stroke. ? Developmental disorders such as autism spectrum disorder or cerebral palsy. In some cases, the cause of a seizure may not be known. Some people who have a seizure never have another one. A person who has repeated seizures over time without a clear cause has a condition called epilepsy. What increases the risk? You are more likely to develop this condition if: ? You have a family history of epilepsy. ? You have had a tonic?clonic seizure before. This type of seizure causes tightening (contraction) of the muscles of the whole body and loss of consciousness. ? You have a history of head trauma, [...] include the following: Symptoms during a seizure ? Uncontrollable shaking (convulsions) with fast, jerky movements of muscles. ? Stiffening of the body. ? Breathing problems. ? Confusion, staring, or unresponsiveness. ? Head nodding, eye blinking or fluttering, or rapid eye movements. ? Drooling, grunting, or making clicking sounds with your mouth. ? Loss of bladder control and bowel control. Symptoms before a seizure ? Fear or anxiety. ? Nausea. ? Vertigo. This is a feeling like: ? You are moving when you are not. ? Your surroundings are moving when they are not. ? D?j? vu. This is a feeling of having seen or heard something before. ? Odd tastes or smells. ? Changes in vision, such as seeing flashing lights or spots. Symptoms after a seizure ? Confusion. ? Sleepiness. ? Headache. ? Sore muscles. How is this diagnosed? This condition may be diagnosed based on: ? A description of your symptoms. Video of your seizures can be helpful. ? Your medical history. ? A physical exam. You may also have tests, including: ? Blood tests. ? CT scan. ? MRI. ? Electroencephalogram (EEG). This test measures electrical activity in the brain. An EEG can predict whether seizures will return. ? A spinal tap, also called a lumbar puncture. This is the removal and testing of fluid that surrounds the brain and spinal cord. How is this treated? Most seizures will stop on their own in less than 5 minutes, and no treatment is needed. Seizures that last longer than 5 minutes will usually need treatment. Seizures may be treated with: ? Medicines given through an IV. ? Avoiding known triggers, such as medicines that you take for another condition. ? Medicines to control seizures or prevent future seizures (antiepileptics), if epilepsy caused your seizures. ? Medical devices to prevent and control seizures. ? Surgery to stop seizures or to reduce how often seizures happen, if you have epilepsy that does not respond to medicines. ? A diet low in carbohydrates and high in fat (ketogenic diet). Follow these instructions at home: Medicines ? Take dvzb-smq-xqrzrds and prescription medicines only as told by your health care provider. ? Avoid any substances that may prevent your medicine from working properly, such as alcohol. Activity ? Follow instructions about activities, such as driving or swimming, that would be dangerous if you had another seizure. Wait until your health care provider says it is safe to do them. ? If you live in the [place] check with your local department of motor vehicles (DMV) to find out about local driving laws. Each state has specific rules about when you can legally drive again. ? Get enough rest. Lack of sleep can make seizures more likely to occur. Educating others ? Teach friends and family what to do if you have a seizure. They should: ? Help you get down to the ground, to prevent a fall. ? Cushion your head and move items away from your body. ? Loosen any tight clothing around your neck. ? Turn you on your side. If you vomit, this helps keep your airway clear. ? Know whether or not you need emergency care. ? Stay with you until you recover. ? Also, tell them what not to do if you have a seizure. Tell them: ? They should not hold you down. Holding you down will not stop the seizure. ? They should not put anything in your mouth. General instructions ? Avoid anything that has ever triggered a seizure for you. ? Keep a seizure diary. Record what you remember about each seizure, especially anything that might have triggered it. ? Keep all follow-up visits. This is important. Contact a health care provider if: ? You have another seizure or seizures. Call each time you have a seizure. ? Your seizure pattern changes. ? You continue to have seizures with treatment. ? You have symptoms of an infection or illness. Either of these might increase your risk of having a seizure. ? You are unable to take your medicine. Get help right away if: ? You have: ? A seizure that does not stop after 5 minutes. ? Several seizures in a row without a complete recovery between seizures. ? A seizure that makes it harder to breathe. ? A seizure that leaves you unable to speak or use a part of your body. ? You do not wake up right away after a seizure. ? You injure yourself during a seizure. ? You have confusion or pain right after a seizure. These symptoms may represent a serious problem that is an emergency. Do not wait to see if the symptoms will go away. Get medical help right away. Call your local emergency services (911 in the [place] Do not drive yourself to the hospital. Summary ? Seizures are caused by abnormal electrical and chemical activity in the brain. The activity disrupts normal brain function and can cause various symptoms. ? Seizures have many causes, including illness, head injuries, low levels of blood sugar or salt, and certain conditions. ? Most seizures will stop on their own in less than 5 minutes. Seizures that last longer than 5 minutes are a medical emergency and need treatment right away. ? Many medicines are used to treat seizures. Take juil-miw-hjnoycw and prescription medicines only as told by your health care provider. This information is not intended to replace advice given to you by your health care provider. Make sure you discuss any questions you have with your health care provider. Document Revised: 01/25/2021 Document Reviewed: 01/25/2021 [employer] Patient Education ? 2022 [employer] Inc. Medication Leaflets: levetiracetam (oral/injection) (RAMILA rogers) Elepsia XR, Keppra, Keppra XR, Roweepra, Spritam What is the most important information I should know about levetiracetam? Some people have thoughts about suicide while taking levetiracetam. Stay alert to changes in your mood or symptoms. Report any new or worsening symptoms to your doctor. Seizures may increase if you stop using levetiracetam suddenly. What is levetiracetam? Levetiracetam is used to treat certain types of seizures in people with epilepsy, including partial onset seizures, myoclonic seizures, and tonic-clonic seizures. When used for partial onset seizures: ?? Extended-release (XR) levetiracetam is for adults and children at least 12 years old. ? Spritam is for children at least 4 years old who weigh at least 44 pounds (20 kilograms). ? Roweepra and Keppra may be used in children as young as 1 month old. Levetiracetam is also used with other seizure medications to treat tonic-clonic seizures in people who are at least 6 years old, and myoclonic seizures in people at least 12 years old. Levetiracetam injection is for use only in people who are least 16 years old. Levetiracetam may also be used for purposes not listed in this medication guide. What should I discuss with my healthcare provider before taking levetiracetam? You should not use levetiracetam if you are allergic to it. Tell your doctor if you have ever had: ?? kidney disease (or if you are on dialysis); ? depression or other mood problems; ? mental illness or psychosis; or ? suicidal thoughts or actions. Do not give this medicine to a child without medical advice. Different brands of this medicine are for use only in children of certain ages. Some people have thoughts about suicide while taking levetiracetam. Your doctor will need to check your progress at regular visits. Your family or other caregivers should also be alert to changes in your mood or symptoms. Do not start or stop seizure medication during without your doctor's advice. Having a seizure during could harm both mother and baby. Tell your doctor if you become . Your dose needs may be different during . If you are , your name may be listed on a registry to track the effects of levetiracetam on the baby. Ask a doctor if it is safe to breastfeed while using this medicine. How should I take levetiracetam? Follow all directions on your prescription label and read all medication guides or instruction sheets. Your doctor may occasionally change your dose. Use the medicine exactly as directed. Levetiracetam oral is taken by mouth at the same time each day, with or without food. Levetiracetam injection is given in a vein if you are unable to take the medicine by mouth. Your dose needs may change if you switch to a different brand, strength, or form of this medicine. A child's dose needs may change if the child gains or loses weight. Avoid medication errors by using only the brand, form, and strength your doctor prescribes. Read and carefully follow any Instructions for Use provided with your medicine. Ask your doctor or pharmacist if you do not understand these instructions. Measure liquid medicine with the supplied syringe or a dose-measuring device (not a kitchen spoon). Swallow the extended-release tablet whole and do not crush, chew, or break it. Do not swallow or chew a Spritam dispersible tablet for oral suspension. Place the tablet on your tongue and take a sip of liquid. Do not swallow until the tablet has completely dissolved on your tongue. Your kidney function may need to be tested. Use all seizure medications as directed. Do not change your dose or stop using a medicine without your doctor's advice. Seizures may increase if you stop using levetiracetam suddenly.. Ask your doctor before stopping the medicine. Wear a medical alert tag or carry an ID card to let others know you have seizures. Store at room temperature away from moisture, heat, and light. What happens if I miss a dose? Take the medicine as soon as you can, but skip the missed dose if it is almost time for your next dose. Do not take two doses at one time. Get your prescription refilled before you run out of medicine completely. What happens if I overdose? Seek emergency medical attention or call the Poison Help line at . Overdose symptoms may include extreme drowsiness, agitation, aggression, shallow breathing, weakness, or fainting. What should I avoid while taking levetiracetam? Avoid driving or hazardous activity until you know how this medicine will affect you. Dizziness or drowsiness can cause falls, accidents, or severe injuries. What are the possible side effects of levetiracetam? Get emergency medical help if you have signs of an allergic reaction (hives, difficult breathing, swelling in your face or throat) or a severe skin reaction (fever, sore throat, burning in your eyes, skin pain, red or purple skin rash that spreads and causes blistering and peeling). Report any new or worsening symptoms to your doctor, such as: mood or behavior changes, depression, anxiety, panic attacks, trouble sleeping, or if you feel agitated, hostile, irritable, hyperactive (mentally or physically), or have thoughts about suicide or hurting yourself. Call your doctor at once if you have: ?? unusual changes in mood or behavior (unusual risk-taking behavior, being irritable or talkative); ? confusion, hallucinations, extreme drowsiness, feeling very weak or tired; ? loss of balance or coordination, problems with walking or movement; ? a skin rash, no matter how mild; ? easy bruising, unusual bleeding; or ? fever, chills, weakness, or other signs of infection. Common side effects may include: ?? dizziness, drowsiness, tiredness, weakness; ? feeling aggressive or irritable; ? loss of appetite; ? stuffy nose; or ? infection. This is not a complete list of side effects and others may occur. Call your doctor for medical advice about side effects. You may report side effects to FDA at 9-610-BGY-9943. What other drugs will affect levetiracetam? Other drugs may affect levetiracetam, including prescription and ulmv-xqo-ozivnle medicines, vitamins, and herbal products. Tell your doctor about all other medicines you use. Where can I get more information? Your pharmacist can provide more information about levetiracetam. Remember, keep this and all other medicines out of the reach of children, never share your medicines with others, and use this medication only for the indication prescribed. Every effort has been made to ensure that the information provided by Lindsey Shell, [employer] ('[employer]') is accurate, up-to-date, and complete, but no guarantee is made to that effect. Drug information contained herein may be time sensitive. [employer] information has been compiled for use by healthcare practitioners and consumers in the [place] and therefore [employer] does not warrant that uses outside of the [place] are appropriate, unless specifically indicated otherwise. [facility]'s drug information does not endorse drugs, diagnose patients or recommend therapy. [facility] drug information is an informational resource designed to assist licensed healthcare practitioners in caring for their patients and/or to serve consumers viewing this service as a supplement to, and not a substitute for, the expertise, skill, knowledge and judgment of healthcare practitioners. The absence of a warning for a given drug or drug combination in no way should be construed to indicate that the drug or drug combination is safe, effective or appropriate for any given patient. [facility] does not assume any responsibility for any aspect of healthcare administered with the aid of information [employer] provides. The information contained herein is not intended to cover all possible uses, directions, precautions, warnings, drug interactions, allergic reactions, or adverse effects. If you have questions about the drugs you are taking, check with your doctor, nurse or pharmacist. Copyright 0271-4451 [facility] [employer]. Version: 14.01. Revision Date: 01/04/2021. You may receive a survey from [employer] asking you to rate your care experience. Your feedback is important and will help us understand what we do well and how we can improve the quality of care we provide to you, your loved ones and our community. It?s an honor to serve you. Thank you for choosing [facility] INPATIENT CLINICAL SUMMARY Observed: 06/2023 12:04 PM Status: F Source: [facility] REPOSITORY (Inserted Image. Unable to d isplay) [address] [address] Clinical Summary Person Information: Name: ROSE MARY SCHNEIDER Age: 17 Years : 2005 Sex: Female PCP: Fredi Mcleod MD Marital Status: Single Phone: [phone] Race: White Ethnicity: Non- or Language: Khmer Visit Id: Visit Reason: R56.9 Unspecified convulsions Speciality: Acuity: Enc Type: Inpatient Med Service: Neurology Clinic Arrival: 05/11/2023 07:26:33 Discharge: Dispo Type: Address: [address] [place] [address] [address]ETH [facility] [id number] Provider Notes: Diagnosis: 1:Seizures; 2:History of gastroesophageal [...] mg tablet) Care Team Members: Attending Physician: ADELINE MARCANO, Akosua Consulting Physician: Melecio Rubio MD Referring Physician: PEYTON QUIROZ CNP Follow up: With: Address: When: Joann Zamorano [facility], [address] [place] [address] Business (1) Comments: Call for hospital followup appointment 2-3 weeks With: Address: When: Fredi Mcleod [facility] [facility], [place] [address] Business (1) Comments: Call for followup appointment Patient Education Information: Seizure, Adult Keppra INTERDISCIPLINARY NOTE - ARIS E COTTON SEED CULLER Observed: 05/13/2023 9:22 AM Status: F Source: [facility] REPOSITORY CRM entered the room to disc uss dc planning. Pt is sleeping. Neuro following. ANt dc TBD. CRM to follow. Result Comment: Electronical ly Signed By: Peyton Mccarty\.br\Date and Time Signed: 05/13/23 09:22 EDT MONITOR RECORD Observed: 05/13/2023 8:00 AM Status: F Source: [facility] REPOSITORY [id number]#[id number] PROGRESS NOTE-PHYSICIAN Observed: 2022 7:46 AM Status: F Source: [facility] REPOSITORY Basic Information The patient is an 17-year-old [...] sensation in all 4 extremities. Cerebellar exam: Tcfzqp-ks-vaga reveals no ataxia. Gait is normal. [4] [3] Lab Results Glucose Cap: 84 mg/dL (05/12/23 21:54:00) POC Device SN: [id number] (05/12/23 21:54:00) POC User ID: [id number] (05/12/23 21:54:00) POC Username: NERY ALCALA (05/12/23 [...] tablet, extended release Protonix 40 mg tablet [1] APSO Note- Neurology; Constanza Landin LPN 05/12/2023 09:21 EDT [2] APSO Note- Neurology; Constanza Landin LPN 05/12/2023 09:21 EDT [3] APSO Note- Neurology; Constanza Landin LPN 05/12/2023 09:21 EDT Result Comment: Electronical ly Signed By: Riya Tidwell RN\.br\Date and Time Signed: 05/13/23 09:16 EDT\.br\Electronically Co-Signed By: Melecio Rubio MD\.br\Date and Time Co-Signed: 05/13/23 16:14 EDT PROGRESS NOTE-NURSE Observed: 05/12/2023 10:08 PM Status: F Source: [facility] REPOSITORY patient had three seizure ep isodes (please see below). After each episode, she [...] she wants to rest as of now. CAPILLARY GLUCOSE POC Collected: 2022 9:54 PM Status: F Source: [facility] REPOSITORY TYPE CODE TESTS RESULT OUT OF RANGE REFERENCE UNITS LAB [id number](LOINC) Glucose Cap 84 Normal 55-99 mg/d L Result Comment: Notified RN/ MD Performed By: #### [id number] #### [facility] [address] [place] [address] PROGRESS NOTE-PHYSICIAN Observed: 2022 3:33 PM Status: F Source: [facility] REPOSITORY Assessment/Plan 1. Seizures (R56.9: Unspecified convulsions) Admitted [...] 05:50:00) Lymph Auto: 41.3 % (05/12/23 05:50:00) Fulton Auto: 8.8 % (05/12/23 05:50:00) Eos Auto: 3.1 % (05/12/23 05:50:00) Basophil Auto: 0.4 % (05/12/23 05:50:00) Neutro Absolute: 2.6 E9/L (05/12/23 05:50:00) Lymph Absolute: 2.3 E9/L (05/12/23 05:50:00) Fulton Absolute: 0.5 E9/L (05/12/23 05:50:00) Eos Absolute: [...] mg/dL (05/12/23 05:50:00) Magnesium: 2 mg/dL (05/12/23 05:50:00) Attestation Progress note sent to Dr. Rosas for review, will provide additional updates as needed/requested, signature indicates that physician is in agreement with POC. Problem List/Past Medical History Ongoing Smoker Historical [...] Tab, 10 mg= 1 tab(s), Oral, Daily melatonin 3 mg Tab, [...] tablet, extended release Protonix 40 mg tablet Result Comment: Electronical ly Signed By: Alicia Sidhu\.br\Date and Time Signed: 05/12/23 15:34 EDT\.br\Electronically Co-Signed By: Akosua ROSAS MD\.br\Date and Time Co-Signed: 05/13/23 07:06 EDT MONITOR RECORD Observed: 05/12/2023 1:09 PM Status: F Source: [facility] REPOSITORY [id number]#[id number] CODING QUERY Observed: 05/12/2023 12:11 PM Status: C Source: [facility] REPOSITORY From: Pratik Kinsey RN To: Alicia Sidhu; Sent: 05/12/2023 12:11:38 EDT ! Subject: Coding Query Due Date/Time: 05/13/2023 12:11:00 EDT Caller Name: ROSE MARY SCHNEIDER; Caller Number: H Documentation in the medical record indicates that this patient has been admitted with the following BMI: BMI 42.81 While BMI may be coded from branch account executive or nursing documentation, the weight- related diagnosis must be coded from physician documentation. [...] Number: H please code as morbid obesity MONITOR RECORD Observed: 05/12/2023 11:22 AM Status: F Source: [facility] REPOSITORY [id number]#[id number] INTERDISCIPLINARY NOTE - ARIS E COTTON SEED CULLER Observed: 05/12/2023 9:58 AM Status: F Source: [facility] REPOSITORY Pt actively having LTME. CRM will continue to follow. Result Comment: Electronical ly Signed By: Peyton Mccarty.hemant\Date and Time Signed: 05/12/23 10:00 EDT PROGRESS NOTE-PHYSICIAN Observed: 2022 9:21 AM Status: F Source: [facility] REPOSITORY Basic Information The patient is an 17-year-old [...] sensation in all 4 extremities. Cerebellar exam: Dyzjzk-gl-qleh reveals no ataxia. Gait is normal. [4] [...] 05:50:00) Lymph Auto: 41.3 % (05/12/23 05:50:00) Fulton Auto: 8.8 % (05/12/23 05:50:00) Eos Auto: 3.1 % (05/12/23 05:50:00) Basophil Auto: 0.4 % (05/12/23 05:50:00) Neutro Absolute: 2.6 E9/L (05/12/23 05:50:00) Lymph Absolute: 2.3 E9/L (05/12/23 05:50:00) Fulton Absolute: 0.5 E9/L (05/12/23 05:50:00) Eos Absolute: [...] mg/dL (05/12/23 05:50:00) Magnesium: 2 mg/dL (05/12/23 05:50:00) Problem List/Past Medical History Ongoing Smoker Historical Seizure Medications Inpatient acetaminophen 325 mg Tab, 650 mg= 2 tab(s), Oral, q6hr, PRN cloNIDine 0.1 mg tab, 0.1 mg= 1 tab(s), Oral, Daily drospirenone-ethinyl estradiol 3 mg-0.03 mg Tab, 1 tab(s), Oral, Daily FLUoxetine 20 mg Cap, 40 mg= 2 cap(s), Oral, Daily heparin 5000 units/mL Inj, 5000 unit(s)= 1 mL, SubCutaneous, BID Keppra 500 mg Tab, 1000 mg= 2 [...] tablet, extended release Protonix 40 mg tablet [1] Consult Note-neurology; Riya Tidwell RN 05/11/2023 09:38 EDT [2] Consult Note-neurology; Riya Tidwell RN 05/11/2023 09:38 EDT [3] Consult Note-neurology; Riya Tidwell RN 05/11/2023 09:38 EDT [4] Consult Note-neurology; Riya Tidwell RN 05/11/2023 09:38 EDT Result Comment: Electronical ly Signed By: Constanza Landin LPN\.br\Date and Time Signed: 05/12/23 09:21 EDT\.br\Electronically Co-Signed By: Melecio Rubio MD\.br\Date and Time Co-Signed: 05/12/23 13:57 EDT CONSULTATION NOTE Observed: 05/12/2023 7:50 AM Status: F Source: [facility] REPOSITORY Chief Complaint LTME Reason for Consultation LTME monitoring History of Present Illness This is an 17-year-old female that was direct admitted to the hospital under neurology care for the purpose of LTME monitoring. History significant for seizures, [...] sensation in all 4 extremities Cerebellar exam: Wifqml-up-pnmu reveals no ataxia. Gait is normal Assessment/Plan [...] 12/04/2021 Immunizations Vaccine Date Status SARS-CoV-2 (COVID-19) mRNAMUL.ORD![id number] 10/03/2022 Recorded meningococcal group B vaccine 07/31/2022 [...] 05/28/2005 Recorded diphth/hepB/pertussis,acel/polio/tetanus 05/28/2005 Recorded haemophilus b conjugate (PRP-T) vaccine 03/27/2005 Recorded diphth/hepB/pertussis,acel/polio/tetanus 03/27/2005 Recorded hepatitis B pediatric vaccine 2004 Recorded Lab Results WBC: 5.6 E9/L (05/12/23 05:50:00) [...] 05:50:00) Lymph Auto: 41.3 % (05/12/23 05:50:00) Fulton Auto: 8.8 % (05/12/23 05:50:00) Eos Auto: 3.1 % (05/12/23 05:50:00) Basophil Auto: 0.4 % (05/12/23 05:50:00) Neutro Absolute: 2.6 E9/L (05/12/23 05:50:00) Lymph Absolute: 2.3 E9/L (05/12/23 05:50:00) [place]ulton Absolute: 0.5 E9/L (05/12/23 05:50:00) Eos Absolute: [...] mg/dL (05/12/23 05:50:00) Magnesium: 2 mg/dL (05/12/23 05:50:00) [1] Admission H & P; Stygles AGACNP-BCAlicia 05/11/2023 16:11 EDT Result Comment: Electronical ly Signed By: Constanza Landin LPN\.br\Date and Time Signed: 05/12/23 07:52 EDT\.br\Electronically Co-Signed By: Ramiro MARCANO, Melecio\.br\Date and Time Co-Signed: 10/10/23 18:08 EDT CMP Collected: 3 5:50 AM Status: F Source: [facility] REPOSITORY TYPE CODE TESTS RESULT OUT OF RANGE REFERENCE UNITS LAB 2339-0([facility]) GLUCOSE:MCNC: PT:BLD:QN: 93 Normal 55-199 mg/dL Result Comment: If this gluc ose result represents a fasting glucose, interpretation should refer to the following reference range: 55-99 mg/dL LAB 3094-0([facility]) UREA NITROGEN:MCNC :PT:SER/PLAS: QN: 12 Normal 5-21 mg/dL LAB 2160-0([facility]) CREATININE:MC NC:PT:SER/RAPHAEL S:QN: 0.9 Normal 0.5-1.3 mg/dL LAB 54369-5([facility]) CALCIUM:MCNC: PT:SER/PLAS:Q N: 9.0 Normal 8.9-11.1 mg/dL LAB 2951-2([facility]) SODIUM:SCNC:P T:SER/PLAS:QN : 136 Normal 135-145 mmol/L LAB 2823-3([facility]) POTASSIUM:SCN C:PT:SER/PLAS :QN: 3.7 Normal 3.5-5.3 mmol/L LAB 2075-0([facility]) CHLORIDE:SCNC :PT:SER/PLAS: QN: 108 Normal 101-111 mmol/L LAB 2028-9([facility]) CARBON DIOXIDE:SCNC: PT:SER/PLAS:Q N: 24 Normal 21-31 mmol/L LAB 6768-6([facility]) ALKALINE PHOSPHATASE:C CNC:PT:SER/PL :QN: 50 Normal 21-98 Int._Uni t/L LAB 1975-2([facility]) BILIRUBIN:MCN C:PT:SER/PLAS :QN: 0.4 Normal 0.0-1.1 mg/dL LAB 1751-7([facility]) ALBUMIN:MCNC: PT:SER/PLAS:Q N: 3.0 Low 3.3-5.0 gm/dL LAB 2885-2([facility]) PROTEIN:MCNC: PT:SER/PLAS:Q N: 7.4 Normal 6.0-7.8 gm/dL LAB 1744-2([facility]) ALANINE AMINOTRANSFER ASE:CCNC:PT:S ER/PLAS:QN:NO ADDITION OF P-5'-P 13 Normal 6-46 Int._Uni t/L LAB 1920-8([facility]) ASPARTATE AMINOTRANSFER ASE:CCNC:PT:S ER/PLAS:QN: 16 Normal 5-43 Int._Uni t/L LAB 3097-3([facility]) UREA NITROGEN/CREA TININE:MRTO:P T:SER/PLAS:QN : 13 Normal 10-20 No Units LAB 20421-9([facility]) ANION GAP:SCNC:PT:S ER/PLAS:QN: 8 Normal 6-16 mEq/L LAB 11490-1([facility]) GLOBULIN:MCNC :PT:SER:QN:CA LCULATED 4.4 High 1.4-4.0 gm/dL LAB 76903-9([facility]) ALBUMIN/GLOBU CHARLES:MCRTO:PT: SER:QN: 0.7 Low 1.1-2.2 Performed By: #### [id number], [id number], [id number], [id number], [id number] #### [facility] [address] [place] [address] EGFR Collected: 3 5:50 AM Status: F Source: [facility] REPOSITORY Order Comment: Order added b y Discern Expert. TYPE CODE TESTS RESULT OUT OF RANGE REFERENCE UNITS LAB 98186-3([facility]) GLOMERULAR FILTRATION RATE/1.73 SQ M.PREDICTED.NO N BLACK:ARVRAT:P T:SER/PLAS/BLD :QN:CREATININE -BASED FORMULA (MDRD) 95 Normal >=59 mL/min/1. 73 m2 Result Comment: Chronic kidn ey disease could be indicated at eGFR's of less than 60 mL/min/1.73m2. Kidney failure is indicated at less than 15 mL/min/1.73m2. Performed By: #### [id number], [id number], [id number], [id number], [id number] #### [facility] [address] [place] [address] MAGNESIUM Collected: 3 5:50 AM Status: F Source: [facility] REPOSITORY TYPE CODE TESTS RESULT OUT OF RANGE REFERENCE UNITS LAB 49981-2([facility]) MAGNESIUM:MC NC:PT:SER/PL :QN: 2.0 Normal 1.3-2.4 mg/dL Performed By: #### [id number], [id number], [id number], [id number], [id number] #### [facility] [address] [place] [address] CBC W/ AUTO DIFF Collected: 05/12/2023 5:50 AM Statu s: F Source: [facility] REPOSITORY TYPE CODE TESTS RESULT OUT OF RANGE REFERENCE UNITS LAB 56961-0([facility]) LEUKOCYTES 5.6 Normal 4.0-11.0 E9/L LAB 789-8([facility]) ERYTHROCYTES:NCN C:PT:BLD:QN:AUTO MATED COUNT 4.5 Normal 4.3-5.9 E12/L LAB 718-7([facility]) HEMOGLOBIN:MCNC: PT:BLD:QN: 13.2 Normal 12.0-16.0 gm/dL LAB 4544-3([facility]) HEMATOCRIT:VFR:P T:BLD:QN:AUTOMAT ED COUNT 38.5 Normal 34.0-46.0 % LAB 788-0([facility]) ERYTHROCYTE DISTRIBUTION WIDTH:RATIO:PT:R BC:QN:AUTOMATED COUNT 13.8 Normal 10.9-14.2 % LAB 785-6([facility]) ERYTHROCYTE MEAN CORPUSCULAR HEMOGLOBIN:ENTMA SS:PT:RBC:QN:AUT OMATED COUNT 29.2 Normal 27.0-34.0 pg LAB 786-4([facility]) ERYTHROCYTE MEAN CORPUSCULAR HEMOGLOBIN CONCENTRATION:MC NC:PT:RBC:QN:AUT OMATED COUNT 34.3 Normal 31.4-36.0 gm/dL LAB 787-2([facility]) ERYTHROCYTE MEAN CORPUSCULAR VOLUME:ENTVOL:PT :RBC:QN:AUTOMATE D COUNT 85.2 Normal 80.0-100.0 fL LAB 61414-4([facility]) PLATELET MEAN VOLUME:ENTVOL:PT :BLD:QN:AUTOMATE D COUNT 8.2 Normal 6.4-10.8 fL LAB 777-3([facility]) PLATELETS:NCNC:P T:BLD:QN:AUTOMAT ED COUNT 332.0 Normal 150.0-500.0 E9/L Performed By: #### [id number], [id number], 9937042, 87776120, [id number] #### [facility] [address] [place] [address] AUTO DIFF Collected: 3 5:50 AM Status: F Source: [facility] REPOSITORY Order Comment: Order Added b y Discern Expert. TYPE CODE TESTS RESULT OUT OF RANGE REFERENCE UNITS LAB 751-8([facility]) NEUTROPHILS: NCNC:PT:BLD: QN:AUTOMATED COUNT 46.4 Normal 36.0-75.0 % LAB 731-0([facility]) LYMPHOCYTES: NCNC:PT:BLD: QN:AUTOMATED COUNT 41.3 Normal 14.0-50.0 % LAB 742-7([facility]) MONOCYTES:NC NC:PT:BLD:QN :AUTOMATED COUNT 8.8 Normal 4.0-14.0 % LAB 711-2([facility]) EOSINOPHILS: NCNC:PT:BLD: QN:AUTOMATED COUNT 3.1 Normal 0.0-8.0 % LAB 704-7([facility]) BASOPHILS:NC NC:PT:BLD:QN :AUTOMATED COUNT 0.4 Normal 0.0-2.0 % LAB 22503-1([facility]) NEUTROPHILS/ LEUKOCYTES:N FR.DF:PT:BLD :QN:AUTOMATE D COUNT 2.6 Normal 2.0-7.5 E9/L LAB 94545-0([facility]) LYMPHOCYTES/ LEUKOCYTES:N FR.DF:PT:BLD :QN:AUTOMATE D COUNT 2.3 Normal 1.0-4.0 E9/L LAB 39604-8([facility]) MONOCYTES/LE UKOCYTES:NFR .DF:PT:BLD:Q N:AUTOMATED COUNT 0.5 Normal 0.2-1.0 E9/L LAB 71849-1([facility]) EOSINOPHILS/ LEUKOCYTES:N FR.DF:PT:BLD :QN:AUTOMATE D COUNT 0.2 Normal 0.0-0.5 E9/L LAB 56181-4([facility]) BASOPHILS/LE UKOCYTES:NFR .DF:PT:BLD:Q N:AUTOMATED COUNT 0.0 Normal 0.0-0.2 E9/L Performed By: #### [id number], 1282406, 1174797, [id number], [id number] #### [facility] [address] [place] [address] MONITOR RECORD Observed: 05/11/2023 7:29 PM Status: F Source: [facility] REPOSITORY [id number]#1.00TIFF HISTORY AND PHYSICAL Observed: 4:11 PM Status: F Source: [facility] REPOSITORY Basic Information Admit Date/Time:05/11/2023 07:29 Chief Complaint LTME History of Present Illness This is an 17-year-old female that was direct admitted to the hospital under neurology care for the purpose of LTME monitoring. History significant for seizures, [...] date 05/11/23 16:03:00 EDT, 05/11/23 16:03:00 EDT [facility] Pres[place], lurasidone 60 mg oral [...] Weight Attestation Progress note sent to Dr. Rosas for review, will provide additional updates as needed/requested, signature indicates that physician is in agreement with POC. Problem List/Past Medical History Ongoing Smoker Historical [...] Tab, 10 mg= 1 tab(s), Oral, Daily lurasidone 60 mg oral tablet, 60 mg, Oral, Daily melatonin 3 mg Tab, 3 [...] 12/04/2021 Immunizations Vaccine Date Status SARS-CoV-2 (COVID-19) mRNAMUL.ORD![id number] 10/03/2022 Recorded meningococcal group B vaccine 07/31/2022 [...] 05/28/2005 Recorded diphth/hepB/pertussis,acel/polio/tetanus 05/28/2005 Recorded haemophilus b conjugate (PRP-T) vaccine 03/27/2005 Recorded diphth/hepB/pertussis,acel/polio/tetanus 03/27/2005 Recorded hepatitis B pediatric vaccine 2004 Recorded Result Comment: Electronical ly Signed By: Alicia Sidhu\.br\Date and Time Signed: 05/11/23 20:00 EDT\.br\Electronically Co-Signed By: Akosua ROSAS MD\.br\Date and Time Co-Signed: 05/12/23 06:56 EDT MONITOR RECORD Observed: 05/11/2023 2:04 PM Status: F Source: [facility] REPOSITORY [id number]#1.00TIFF CONSULTATION NOTE Observed: 05/11/2023 9:38 AM Status: F Source: [facility] REPOSITORY Chief Complaint LTME Reason for Consultation [facility] History of Present Illness The patient is [...] sensation in all 4 extremities. Cerebellar exam: Wkcfwh-os-cogg reveals no ataxia. Gait is normal. Assessment/Plan [...] 12/04/2021 Immunizations Vaccine Date Status SARS-CoV-2 (COVID-19) mRNAMUL.ORD![id number] 10/03/2022 Recorded meningococcal group B vaccine 07/31/2022 [...] 05/28/2005 Recorded diphth/hepB/pertussis,acel/polio/tetanus 05/28/2005 Recorded haemophilus b conjugate (PRP-T) vaccine 03/27/2005 Recorded diphth/hepB/pertussis,acel/polio/tetanus 03/27/2005 Recorded hepatitis B pediatric vaccine 2004 Recorded Lab Results No qualifying data available. Result Comment: Electronical ly Signed By: Riya Tidwell RN\.br\Date and Time Signed: 05/11/23 09:39 EDT\.br\Electronically Co-Signed By: Melecio Rubio MD\.br\Date and Time Co-Signed: 05/12/23 08:36 EDT MONITOR RECORD Observed: 05/11/2023 9:36 AM Status: F Source: [facility] REPOSITORY [id number]#1.00TIFF CONSENT FOR TREATMENT Observed: 05/11/20 7:34 AM Status: F Source: [facility] REPOSITORY [id number]#1.00TIFF NEUROLOGY OFFICE/CLINIC NOTE Observed: 04/29/2023 8:20 AM Status: F Source: [facility] REPOSITORY [id number]#1.00CD:127 INSURANCE CORRESPONDENCE Observed: 04/29 8:19 AM Status: F Source: [facility] REPOSITORY [id number]#1.00CD:127 PHYSICIAN ORDER Observed: 04/22/2023 12:51 PM Status: F Source: [facility] REPOSITORY [id number]#1.00CD:127 INSURANCE CORRESPONDENCE Observed: 04/08 3:18 PM Status: F Source: [facility] REPOSITORY [id number]#1.00CD:127 ALLERGIES DATE TYPE / CODE NAME / CODE REACTION SEVERITY SOURCE 06/17/2017 Drug Allergy/[id number] 2(SNOMED CT) No Known Allergies/[id number] (RXNORM) Unknown [facility] /[id number](SNO MED CT) No Known Allergies [facility] ENCOUNTERS ADMIT/DISCHARGE ACCOUNT NUMBER ADMITTING ENCOUNTER CLASS LOCATION SOURCE 03/17/2024 [id number] Robson White [facility] 03/14/2024/ 024 [id number] [facility]: ED-01Bed: 01 [facility] 03/14/2024 [id number] [facility]EDRoom: ED-01Bed: 01 [facility] 03/03/2024/ 024 [id number] Zenon Hernandez Ambulatory [facility]FT [facility] 03/03/2024 [id number] MISTY MACKEY Ambulatory [facility] :FT LAB [facility] 03/03/2024/ 024 [id number] MISTY MACKEY [facility]ulatory [facility] :FT LAB [facility] 03/01/2024/ 024 [id number] Ambulatory Building:[facility] 02/16/2024/ 024 [id number] Markus Cantor Ambulatory [facility] 02/09/2024/ 024 [id number] Ambulatory Donya ing: Eboni [facility] 01/28/2024 [id number] Ambulatory Building:[facility] OfficeRoom: CME OfficeBed: [facility] 01/25/2024 [id number] Ambulatory ANGELA Naqvi ing:GS Eboni [facility] 01/22/2024/ 024 [id number] Ambulatory [facility] DHBuilding:[facility] DHRoom: CD:[id number] 3 [facility] 01/14/2024 [id number] Ambulatory [facility] 01/13/2024/ 024 [id number] [facility] :EDRoom: ED-11Bed: CD:[id number] [facility] 01/13/2024 [id number] [facility] :EDRoom: ED-11Bed: CD:[id number] [facility] 01/12/2024 [id number] [facility] :EDRoom: ED-04Bed: CD:[id number] [facility] 01/12/2024/ 024 [id number] Emergency [facility] :EDRoom: ED-04Bed: CD:[id number] [facility] 06/30/2023 [id number] [address] [place] [address] 05/11/2023/ 023 [id number] Akosua ROSAS Inpatient Encounter [facility] :ICRoom: EF51Rdw: 01 [facility] 04/27/2023 [id number] Noel Stratton [facility] 03/16/2023/ 023 [id number] Emergency [facility] :EDRoom: ED-15Bed: 01 [facility] PAYERS ENCOUNTER GUARANTOR PAYER SUBSCRIBER SOURCE 03/17/2024 [place] [address]Cow: () Primary Insurance:Self PayPolicy Number: Effective Date:2022-11-21 [facility]24 ROSE MARY SCHNEIDERDOB: [address]Tel: ~([phone] (HP) Primary Insurance:CARESOURCEPo licy Number: [id number] Date:4588-93-86AL [address] [address]KU: [address] [facility] 03/14/2024 ROSE MARY Stokes JENNIEDOB: [address]Tel: ~[phone] (HP) Primary Insurance:CARESOURCEPo licy Number: [id number] Date:1796-89-67MO [address] [address]JQ: ROSE MARY Divya SEAMUS [facility] 03/03/2024 ROSE MARY Divya SCHNEIDERDOB: [address]Tel: ~[phone] (HP) Primary Insurance:CARESOURCEPo licy Number: [id number] Date:5135-17-81DV [address] [address]VG: [address] [facility] 03/03/2024 ROSE MARY Divya SCHNEIDERDOB: [address]Tel: ~[phone] (HP) Primary Insurance:CARESOURCEPo licy Number: [id number] Date:5678-53-10YJ [address] [place] [address]QO: R[address] [facility] 03/01/2024 ROSE MARY Divya SCHNEIDERDOB: [address], [place] [address]Dut: (HP) Primary Insurance:CARESOURCE MEDICAIDPolicy Number: [id number] Date:2023-10-02 ROSE MARY SCHNEIDERDOB: [id number], [place] [address] [facility] 02/16/2024 ROSE MARY SCHNEIDERDOB: [address]Tel: ~[phone] (HP) Primary Insurance:CARESOURCEPo licy Number: [id number] Date:5740-36-65YD[address] [address]TJ: [address] [facility] 02/09/2024 ROSE MARY CREWSB: [address]Tel: ~[phone] (HP) Primary Insurance:CARESOURCEPo licy Number: [id number] Date:0506-29-07FY [address] [address]AI: [address] [facility] 01/28/2024 [facility] ([facility]Policy Number: [id number] Date:2023-07-08 ROSE MARY SCHNEIDERDOB: [birth year], [place] [id number] [place] [address] 01/28/2024 [facility]Policy Number: [id number] Date:2023-07-08 ROSE MARY SCHNEIDERDOB: [birth year], [place] [address] [facility] 01/22/2024 ROSE MARY SCHNEIDERDOB: [address]Tel: (HP) Primary Insurance:CARESOURCEPo licy Number: [id number] Date:9430-49-63ZC [address] [address]VR: [address] [facility] 01/13/2024 ROSE MARY CREWSB: [facility] (HP) Primary Insurance:CARESOURCEPo licy Number: [id number] Date:1721-83-15LK [address] [address]EV: ROSE MARY Divya SEAMUS [facility] 01/13/2024 ROSE MARY SCHNEIDERDOB: [facility]: (HP) Primary Insurance:CARESOURCEPo licy Number: [id number] Date:0076-99-26ZY [address] [address]GC: ROSE MARY Divya SEAMUS [facility] 01/12/2024 ROSE MARYAPRIL CREWSB: [facility]: (HP) Primary Insurance:CARESOURCEPo licy Number: [id number] Date:1177-33-55BJ [address] [address]DE: ROSE MARY Divya JENNIECELI [facility] 01/12/2024 RO[address]ARYAPRIL CREWSB: [facility]: (HP) Primary Insurance:CARESOURCEPo licy Number: [id number] Date:8886-24-07IK[address] [address]JT: [address] [facility] 06/30/2023 ROSE MARY CREWSB: [place], [place] [address]Vcl: (HP) Primary Insurance:CARESOURCEPo licy Number: [id number] Date:0430-24-16Rzed Name:BROOK[place]N VIRAMONTES: [id number] [place], [place] [address]Mis: (HP) [facility]3] 05/11/2023 ROSE MARY VIRAMONTES: [address]ABETH [place]: (HP) Primary Insurance:CARESOURCEPo licy Number: [id number] Date:9836-21-32XD [address] [place] [address]QE: [address] [facility] 04/27/2023 [address] [place] [address]Rps: (HP) Primary Insurance:[facility] PlanPolicy Number: [id number] Date:2156-49-24Jvheewi d [facility] [address] [place] [address]SL: Rose Mary Viramontes: [id number] [place] [address]Fyt: (HP) [facility] 04/27/2023 Secondary Insurance:Self PayPolicy Number: Effective Date:2023-02-26 [facility] 03/16/2023 ROSE MARY VIRAMONTES: SYMICHELLE [place]: (HP) Primary Insurance:CARESOURCEPo licy Number: [id number] Date:4070-36-33WP [address] [place] [address]DJ: [address] [facility]
--- NOTE | 2024-03-19 11:19 | ED_ITS ---
HPI - SOB/Dyspnea General Chief Complaint: Shortness of Breath/Dyspnea Stated Complaint: SORE THROAT Time Seen by Provider: 03/19/24 11:16 Source: patient Mode of arrival: walk-in Limitations: no limitations History of Present Illness HPI Narrative: asthmatic developed a cough yesterday and some associated shortness of breath. She is out of her Albuterol MDI, which she said is prescribed by a broommaker out of [facility] office in [place], rather than her PCP, Dr Mcleod. No ear pain, fever or chills. Had some sore throat. No GI or symptoms. Related Data Home Medications ?Medication ?Instructions ?Recorded ?Confirmed cetirizine 10 mg tablet 10 mg PO DAILY 10/14/23 01/24/24 fluoxetine 40 mg capsule 40 mg PO DAILY 10/14/23 01/24/24 lurasidone 60 mg tablet 60 mg PO DAILY 10/14/23 01/24/24 melatonin 3 mg tablet 3 mg PO QPM 10/14/23 01/24/24 famotidine 10 mg tablet (Acid 10 mg PO BID PRN pain 01/24/24 01/24/24 Controller) hydrocodone 5 mg-acetaminophen 325 1 tab PO Q4H PRN pain 01/24/24 01/24/24 mg tablet lurasidone 40 mg tablet 40 mg PO DAILY 01/24/24 01/24/24 naproxen 500 mg tablet 500 mg PO BID PRN pain 01/24/24 01/24/24 norethindrone 1 mg-ethinyl 1 tab PO DAILY 01/24/24 01/24/24 estradiol 20 mcg (21)-iron 75 mg (7) tablet (Aurovela Fe 1-20 (28)) pantoprazole 40 mg tablet,delayed 40 mg PO DAILY 01/24/24 01/24/24 release Previous Rx's ?Medication ?Instructions ?Recorded ondansetron 4 mg disintegrating 4 mg PO Q6H PRN nausea and 03/13/24 tablet vomiting #20 tabs albuterol sulfate 90 mcg/actuation 2 inh inhalation Q6H PRN shortness 03/19/24 aerosol inhaler of breath or wheezing #8.5 grams Allergies Allergy/AdvReac Type Severity Reaction Status Date / Time No Known Drug Allergies Allergy Verified 03/13/24 12:37 PFSH PFSH Social History Smoking status: Never smoker Exam Narrative Exam Narrative: Nurses notes and vital signs reviewed and patient is not hypoxic. afebrile General: Well-appearing and in no apparent distress. Skin: Warm, dry, no pallor noted. No rash. Head: Normocephalic, atraumatic. Neck: Supple, non-tender. No cervical lymphadenopathy Eye: Pupils are equal, round and EOMI. No scleral icterus. Ears, Nose, Mouth, and Throat: TM are clear, no posterior oropharynx erythema or nasal mucosal hypertrophy, uvula is mid-line Oral mucosa is moist Cardiovascular: Regular Rate and Rhythm without murmur, gallop or rub. Respiratory: No accessory muscle use or respiratory distress. Lungs With very faint, scattered, minimal wheezing Musculoskeletal: normal ROM Neurological: A&O x4. No cranial nerve dysfunction observed. No truncal ataxia. Moves all extremities. Sensation intact. Psychiatric: Cooperative and interactive. Normal mood and affect. Constitutional Vital Signs, click to edit/add: Last Vital Signs Temp 98.9 F 03/19/24 11:13 Pulse 75 03/19/24 12:05 Resp 18 03/19/24 11:13 BP 128/88 03/19/24 11:13 Pulse Ox 95 03/19/24 12:05 O2 Del Method Room Air 03/19/24 12:05 Course Vital Signs Vital signs: Vital Signs Temperature 98.9 F 03/19/24 11:13 Pulse Rate 88 03/19/24 11:13 Respiratory Rate 18 03/19/24 11:13 Blood Pressure 128/88 03/19/24 11:13 Pulse Oximetry 94 L 03/19/24 11:13 Oxygen Delivery Method Room Air 03/19/24 11:13 Temperature 98.9 F 03/19/24 11:13 Pulse Rate 75 03/19/24 12:05 Respiratory Rate 18 03/19/24 11:13 Blood Pressure 128/88 03/19/24 11:13 Pulse Oximetry 95 03/19/24 12:05 Oxygen Delivery Method Room Air 03/19/24 12:05 MDM - SOB/Dyspnea MDM Narrative Medical decision making narrative: Patient swabbed for strep and COVID. She was ordered to receive an albuterol nebulizer treatment in the ED. She is moving air well and oxygenating appropriately and I do not appreciate anything on physical examination to suggest acute pneumonia. Strep negative Pt tested positive for Covid. She and mother were informed. She felt better after ED treatment and was discharged home. I prescribed additional albuterol MDI for this patient to use at home. She can see her primary care provider, Dr. Mcleod, for follow-up in this instance. Lab Data Attestation: I reviewed the patient's lab results. Labs: Lab Results 03/19/24 Range/Units 11:20 SARS-CoV-2 Ag (CV2AG) Positive A (NEGATIVE) Streptococcus Screen Negative Discharge Plan Discharge Stand Alone Forms: Portal Instructions Chief Complaint: Shortness of Breath/Dyspnea Clinical Impression: COVID, Asthma with acute exacerbation Patient Disposition: Home, Self-Care Time of Disposition Decision: 11:22 Prescriptions / Home Meds: New albuterol sulfate 90 mcg/actuation HFA aerosol inhaler 2 inh inhalation Q6H PRN (Reason: shortness of breath or wheezing) Qty: 8.5 0RF No Action fluoxetine 40 mg capsule 40 mg PO DAILY cetirizine 10 mg tablet 10 mg PO DAILY melatonin 3 mg tablet 3 mg PO QPM lurasidone 60 mg tablet 60 mg PO DAILY ondansetron 4 mg tablet,disintegrating 4 mg PO Q6H PRN (Reason: nausea and vomiting) Qty: 20 0RF famotidine [Acid Controller] 10 mg tablet 10 mg PO BID PRN (Reason: pain) hydrocodone-acetaminophen 5-325 mg tablet 1 tab PO Q4H PRN (Reason: pain) lurasidone 40 mg tablet 40 mg PO DAILY naproxen 500 mg tablet 500 mg PO BID PRN (Reason: pain) norethindrone-e.estradiol-iron [Aurovela Fe 1-20 (28)] 1 mg-20 mcg (21)/75 mg (7) tablet 1 tab PO DAILY pantoprazole 40 mg tablet,delayed release (DR/EC) 40 mg PO DAILY Print Language: Romansh Instructions: Asthma (ED), COVID-19 (Coronavirus Disease 2019) (ED) Referrals: Fredi Mcleod MD [Primary Care Provider] - 1 week
[2024-03-19] MEDS: ALBUTEROL SULFATE 2.5 MG/3 ML VIAL NEB IH (12:04)
[2024-03-19 12:05] VITALS: PULSE 75; O2SAT 95
[2024-03-19 12:25] LABS: Internal Control Within Normal Limits; SARS-CoV-2 Ag POSITIVE (NEGATIVE)
[2024-03-19 12:26] LABS: Internal Control Within Normal Limits; Strep A Antigen Screen Negative
[2024-03-19 12:42] VITALS: PULSE 91; O2SAT 98
== END 2024-03-19 12:44 | disposition home or self-care (01) ==
PROVIDERS: Emergency Provider Emergency Medicine; PCP Family Medicine
DX: U07.1 COVID-19 (principal); J45.901 Unspecified asthma with (acute) exacerbation
CPT/HCPCS: 87070; 87811; 87880; 94640; 99283

== ENCOUNTER 2024-08-31 14:46 | Outpatient (OUT) | payer OTHER, SELFPAY ==
[2024-08-31 15:21] LABS: Basophils Percent Auto 0.4 % (0.2-2.0); Eosinophils Absolute Auto 0.3 10^3/uL (0.0-0.7); Eosinophils Percent Auto 4.3 % (0.9-7.0); Hematocrit 38.8 % (36.0-48.0); Hemoglobin 12.8 g/dL (12.0-16.0); Immature Granulocytes Abs Auto 0.01 10^3/uL (0.00-0.03); Immature Granulocytes Pct Auto 0.1 % (0.0-0.5); Lymphocytes Absolute Auto 1.8 10^3/uL (1.2-3.8); Lymphocytes Percent Auto 25.9 % (20.5-60.0); Mean Corpuscular Hemoglobin 27.6 pg (26.7-34.0); Mean Corpuscular Volume 83.6 fL (81.0-99.0); Mean Platelet Volume 9.4 fL (9.5-13.5); Monocytes Absolute Auto 0.5 10^3/uL (0.3-0.8); Monocytes Percent Auto 6.6 % (1.7-12.0); Neutrophils Absolute Auto 4.4 10^3/uL (1.4-6.5); Neutrophils Percent Auto 62.7 % (43.0-75.0); Platelet Count 390 10^3/uL (150-450); Red Blood Count 4.64 10^6/uL (4.20-5.40); Red Cell Distribution Width 14.8 % (11.0-15.0)
[2024-08-31 15:26] LABS: BOX Test Reference Lab UNITY; BOX Test Sent Out UNITY
[2024-08-31 15:28] LABS: Cannabinoid Screen Urine NEGATIVE (NEGATIVE); Phencyclidine Screen Urine NEGATIVE (NEGATIVE)
[2024-08-31 15:29] LABS: Amphetamine Screen Urine NEGATIVE (NEGATIVE); Barbiturates Screen Urine NEGATIVE (NEGATIVE); Benzodiazepines Screen Urine POSITIVE (NEGATIVE); Buprenorphine Screen Urine NEGATIVE (NEGATIVE); Cocaine Screen Urine NEGATIVE (NEGATIVE); Methadone Screen Urine NEGATIVE (NEGATIVE); Methamphetamines Screen Urine NEGATIVE (NEGATIVE); Opiate Screen Urine NEGATIVE (NEGATIVE); Oxycodone Screen Urine NEGATIVE (NEGATIVE); Tricyclic Antidepressant Urine NEGATIVE (NEGATIVE)
[2024-08-31 15:31] LABS: Estimated Average Glucose 94 mg/dL; Glycohemoglobin A1C 4.9 % (4.5-6.2)
[2024-09-01 06:08] LABS: HBsAg Screen Negative (Negative); HCV Ab Non Reactive (Non Reactive); HIV Ab/p24 Ag Screen Non Reactive (Non Reactive)
[2024-09-01 07:08] LABS: Rubella Antibodies, IgG 1.09 index (Immune >0.99)
[2024-09-01 12:08] LABS: Rapid Plasma Reagin, Quant Non Reactive titer (NonRea<1:1)
[2024-09-02 22:07] LABS: Benzodiazepines Negative (Cutoff=300)
== END 2024-08-31 14:47 | disposition home or self-care (01) ==
LOC: LAB 14:48
PROVIDERS: PCP Family Medicine; Visit Provider Obstetrics & Gynecology
DX: Z34.01 Encounter for supervision of normal first pregnancy, first trimester (principal); Z36.0 Encounter for antenatal screening for chromosomal anomalies; N92.6 Irregular menstruation, unspecified
CPT/HCPCS: 36415; 80307; 80346; 83036; 85025; 86592; 86762; 86803; 86850; 86900; 86901; 87086; 87340; 87389

== ENCOUNTER 2024-10-04 10:34 | Outpatient (OUT) | payer OTHER, SELFPAY ==
--- NOTE | 2024-10-04 10:55 | XR_ITS ---
The [address] [address] Patient Name: VAL SCHNEIDER MRN: [id number] date: 2005 Sex: F Assigned Patient Location: [facility] Current Patient Location: [facility] Accession/Order Number: [id number] Exam Date: 10/04/2024 15:18 Report Date: 10/04/2024 15:20 At the request of: HAIDER LOW Procedure: XR cervical spine 2-3V CERVICAL SPINE - 3 views: CLINICAL HISTORY: Posterior neck pain since fall 2 weeks ago COMPARISON: None AP lateral and odontoid views were obtained. There is straightening of the normal cervical lordosis. There is minimal anterolisthesis of C2 on C3 and C3 on C4. No acute fractures are identified. No disproportionate disc space narrowing or hypertrophy is seen. The atlantoaxial relationship is maintained. There is no prevertebral soft tissue swelling. XR/XR cervical spine 2-3V IMPRESSION: LOSS OF THE NORMAL CERVICAL LORDOSIS. NO ACUTE BONY FINDINGS. Impression dictated by: Kaila Naqvi M.D.10/04/2024 3:20 PM Dictation Location: [facility] Electronically authenticated by: [id number] Y Date: 10/04/2024 15:20
== END 2024-10-04 10:35 | disposition home or self-care (01) ==
LOC: RAD 10:36
PROVIDERS: PCP Family Medicine; Visit Provider Nurse Practitioner Family
DX: M54.2 Cervicalgia (principal)
CPT/HCPCS: 72040

== ENCOUNTER 2024-12-01 07:34 | Outpatient (OUT) | payer OTHER, SELFPAY ==
[2024-12-01 08:48] LABS: Basophils Percent Auto 0.2 % (0.2-2.0); Eosinophils Absolute Auto 0.2 10^3/uL (0.0-0.7); Eosinophils Percent Auto 2.3 % (0.9-7.0); Hematocrit 32.7 % (36.0-48.0); Immature Granulocytes Abs Auto 0.03 10^3/uL (0.00-0.03); Immature Granulocytes Pct Auto 0.3 % (0.0-0.5); Lymphocytes Absolute Auto 2.2 10^3/uL (1.2-3.8); Mean Corpuscular HGB Conc 33.6 g/dL (29.9-35.2); Mean Corpuscular Hemoglobin 28.7 pg (26.7-34.0); Mean Corpuscular Volume 85.4 fL (81.0-99.0); Mean Platelet Volume 9.7 fL (9.5-13.5); Monocytes Absolute Auto 0.5 10^3/uL (0.3-0.8); Monocytes Percent Auto 5.3 % (1.7-12.0); Neutrophils Absolute Auto 5.9 10^3/uL (1.4-6.5); Neutrophils Percent Auto 66.9 % (43.0-75.0); Platelet Count 359 10^3/uL (150-450); Red Blood Count 3.83 10^6/uL (4.20-5.40); Red Cell Distribution Width 13.5 % (11.0-15.0); White Blood Count 8.8 10^3/uL (4.0-11.0)
[2024-12-01 09:12] LABS: Glucose 1 Hour 129 mg/dL (<130)
== END 2024-12-01 07:35 | disposition home or self-care (01) ==
LOC: LAB 07:35
PROVIDERS: PCP Family Medicine; Visit Provider Obstetrics & Gynecology
DX: Z13.1 Encounter for screening for diabetes mellitus (principal)
CPT/HCPCS: 36415; 82105; 82950; 85025

== ENCOUNTER 2024-12-01 07:38 | Outpatient (OUT) | payer OTHER, SELFPAY ==
[2024-12-03 00:08] LABS: AFP Value 56.8 ng/mL (.); Insulin Dep Diabetes No (.); Maternal Age At EDD 20.2 yr (.); OSBR Risk 1 IN 10000 (.); Results Report (.)
== END 2024-12-01 07:39 | disposition home or self-care (01) ==
LOC: LAB 07:39
PROVIDERS: PCP Family Medicine; Visit Provider Physician Assistant
DX: Z34.92 Encounter for supervision of normal pregnancy, unspecified, second trimester (principal)
CPT/HCPCS: 36415; 82105

== ENCOUNTER 2025-03-02 19:30 | Outpatient (REF) | payer OTHER, SELFPAY | END 2025-03-02 19:31 | disposition home or self-care (01) | LOC: LAB 19:30 | PROVIDERS: PCP Family Medicine; Visit Provider Physician Assistant | DX: Z34.93 Encounter for supervision of normal pregnancy, unspecified, third trimester (principal) | CPT/HCPCS: 87081 ==

== ENCOUNTER 2025-03-15 10:15 | Outpatient (OUT) | payer OTHER, SELFPAY ==
--- OUTSIDE RECORDS SUMMARY | 2025-03-15 10:34 | XMS_ITS | CCD ---
Author Organization [facility] Care Team Providers Care Sander Portable Machine Name Role Phone Martina Bedolla Attending Unavailable RuyyFredi Valeriy Referring Unavailable Hoy Fredi Valeriy Primary Care Unavailable Liss Aburto Attending Unav ailable RuyyFredi Referring Unavailable Hoy, Fredi Valeriy Primary Care Unavailable Martina Bedolla Attending Unavailable Hoy, Fredi Valeriy Referring Unavailable Hoy, Fredi Valeriy Primary Care Unavailable Martina Bedolla Attending Unavailable Hoy, Fredi Valeriy Referring Unavailable Hoy, Fredi Valeriy Primary Care Unavailable Fredi Ellington Primary Care Physician MD Fredi Ellington Primary Care Provider MD Fredi Ellington Attending Provider RAKEL ., DR TAYLOR [...] Primary Care Unavailable HAIDER LOW Attending Unavailable HAIDER LOW Admitting Unavailable HAIDER LOW Consulting Unavailable HOY ., DR TAYLOR Consulting Unavailable HOY ., DR TAYLOR Primary Care Unavailable HOY ., DR TAYLOR Attending Unavailable HOY ., DR TAYLOR Admitting Unavailable HOY ., DR TAYLOR Admdarwin Unavailable [...] Unavailable HOY ., DR TAYLOR Admitting Unavailable HOY, FREDI M Primary Care Unavailable KATHRINE CARBALLO Attending Unavailable HOY, FREDI M Referring Unavailable HOY, FREDI M Referring Unavailable RADHA DANIEL Attending Unavailable HOY, FREDI M Primary Care Unavailable JUAN MIGUEL HUYNH Attending Unavailable JESÚS BROWNE Referring Unavailable HOY, FREDI M Primary Care Unavailable FREDI ELLINGTON M Referring Unavailable FREDI ELLINGTON M Primary Care Unavailable RADHA DANIEL Attending Unavailable RAKELFREDI M Primary Care Unavailable HAN BOLAÑOS Referring Unavailable STEVE BAUM Attending Unavailable FREDI ELLINGTON M Primary Care Unavailable JUAN MIGUEL HUYNH Attending Unavailable HAN BOLAÑOS Referring Unavailable MD Fredi Ellington Primary Care Provider [phone] MD Ermias John Admit Provider [phone] MD John Monson Attending Provider Fredi Ellington MD Primary Care Provider [phone] VALORIE HANSEN Attending Unavailable FREDI ELILNGTON M Primary Care Unavailable FREDI ELLINGTON M Referring Unavailable Lawrence Reveles. Attending Unavailable Millington, Melecio Consulting Unavailable Jennifer RETANA Admitting Unavailable MD Melecio Rubio Consulting Unavailable Millington, Melecio Consulting Unavailable Millington, Melecio Consulting Unavailable Millington, Melecio Consulting Unavailable Millington, Melecio Consulting Unavailable Millington, Melecio Consulting Unavailable Millington, Melecio Consulting Unavailable Millington, Melecio Consulting Unavailable Radha Whipple Attending Unavailable Radha Whipple Attending Unavailable DAYNAMOCHERYL Stokes Referring UnavailAkosua Moore Admitting Unavailable Akosua LR Attending Unavailable Ramiro, Melecio Consulting Unavailable MD Melecio Rubio Consulting Unavailable Millington, Melecio Consulting Unavailable Millington, Melecio Consulting Unavailable Millington, Melecio Consulting Unavailable Millington, Melecio Consulting Unavailable Millington, Melecio Consulting Unavailable Millington, Melecio Consulting Unavailable Millington, Melecio Consulting Unavailable MISTY MACKEY Attending Unavailable MISTY MACKEY Admitting Unavailable Bud, Astrit H Attending Unavailable Radha Whipple Attending Unavailable Bud, Astrit H Attending Unavailable Zenon Hernandez Attending Unavailable Zenon Hernandez ALaurita Referring Unavailable Radha Cantor Attending Unavailable Zenon Hernandez ALaurita Admitting Unavailable Zenon Hernandez ALaurita Attending Unavailable Zenon Hernandez ALaurita Referring Unavailable Mourany, Radha E. Admitting Unavailable Mourany, Radha E. Attending Unavailable Mourany, Radha E. Referring Unavailable SCHULDT, MISTY E Admitting Unavailable SCHULDT, MISTY E Attending Unavailable Miky, Han S. Attending Unavailable SCHULDT, MISTY E Attending Unavailable SCHULDT, MISTY E Admitting Unavailable Miky, Han S. Attending Unavailable Mouchli, Mohamad A. Attending Unavailable Dokken, Kaylinn A Attending Unavailable Hajdari, Astrit H Attending Unavailable Dokken, DO Kaylinn A Attending Unavailable Dokken, DO Kaylinn A Attending Unavailable Mouchli, Mohamad A. Attending Unavailable Mouchli, Mohamad A. Attending Unavailable Mouchli, Mohamad A. Admitting Unavailable Mouchli, Mohamad A. Attending Unavailable Hajdari, Astrit H Attending Unavailable Mouchli, Mohamad A. Referring Unavailable Mouchli, Mohamad A. Admitting Unavailable Mouchli, Mohamad A. Attending Unavailable Mouchli, Mohamad A. Attending Unavailable Mouchli, Mohamad A. Admitting Unavailable Miky, Han S. Attending Unavailable Miky, Han S. Attending Unavailable Miky, Han S. Attending Unavailable Fredi Ellington MD Primary Care Provider [phone] Hate, Astrit H Attending Unavailable Miky, Han S. Attending Unavailable Hajdari, Astrit H Attending Unavailable Fredi Ellington MD Primary Care Provider [phone] Robson White MD Attending Provider Jenn Sapp DO Emergency Provider Radha Whipple Attending Unavailable Radha Whipple Attending Unavailable Fredi Ellington MD Primary Care Provider [phone] Jenn Sapp Admitting Unavailable Jenn Sapp Attending Unavailable Fredi Ellington Primary Care Unavailable Robson White Admitting Unavailab Robson Aj Attending Unavailab Fredi Whitfield Primary Care Unavailable ROBBROLANDAY Attending Unavailable NURY MARTINA Attending Unavailable ROBB, RANJIT Attending Unavailable NURY, MARTINA Referring Unavailable ROBB, RANJIT Attending Unavailable ROBB, RANJIT Attending Unavailable NURY, MARTINA Attending Unavailable RANJIT ZAMUDIO Attending Unavailable MARTINA ARRINGTON Attending Unavailable RANJIT ZAMUDIO Attending Unavailable MARTINA ARRINGTON Attending Unavailable MARTINA ARRINGTON Attending Unavailable PEYTON QUIROZ Attending Unavailable Medications Current Medications Medication Drug Class(es) Dates Sig (Normalized) Sig (Original) acetaminophen 325 mg / butalbital 50 mg / caffeine 40 mg oral tablet (14 sources) Barbiturate, Central Nervous System Stimulant, Methylxanthine Start: 03-16-2023 take 1 tablet by mouth every four hours for headache APAP/butalbital/c affeine 325 mg-50 mg-40 mg Tab 1 tab(s), Oral, q4hr for headache, 15 tab(s), Refill(s) 0, [id number], 165.1, cm, 03/16/23 16:58:00 EDT, Height/Length Dosing, 118.1, kg, 03/16/23 16:58:00 EDT, Weight Dosing Start Date: 03/16/23 Status: Ordered acetaminophen 300 mg / codeine phosphate 30 mg oral tablet (20 sources) Opioid Agonist Start: 11-09-2024 End: 03-09-2025 take 1 tablet by mouth every six hours for pain acetaminophen-cod eine (Tylenol w/ Codeine #3) 300-30 MG tablet Indications: Third trimester ([facility]) , Stomach pain Take 1 tablet by mouth every 6 (six) hours if needed for moderate pain 20 tablet 02/23/2025 03/09/2025 Discontinued (Therapy completed) acetaminophen 325 mg / HYDROcodone bitartrate 5 mg oral tablet (11 sources) Opioid Agonist Start: 01-13-2024 take 1 tablet by mouth every six hours as needed for pain and pain, then take 8 tablets by mouth every four to six hours as needed for pain and pain [place] 325 mg-5 mg oral tablet 1 tab(s), Oral, q6hr for pain, 8 tab(s), Refill(s) 0, 1 to 2 tabs every 4 to 6 hours as needed for pain, Pain, [id number], 165.1, cm, 01/13/24 18:35:00 EDT, Height/Length Dosing, 117.7, kg, 01/13/24 18:35:00 EDT, Weight Dosing Start Date: 01/13/24 Status: Ordered brompheniramine maleate 0.4 mg/ml / dextromethorphan hydrobromide 2 mg/ml / pseudoephedrine hydrochloride 6 mg/ml oral solution (4 sources) alpha-Adrenergic Agonist, Uncompetitive Y-lixmqb-Z-aspartat e Receptor Antagonist, Sigma-1 Agonist Start: 05-22-2024 take 5 mL by mouth four times daily Bromfed DM oral syrup 5 mL, Oral, QID for cold symptoms, 200 mL, Refill(s) 0, [id number], 170.2, cm, 05/22/24 21:55:00 EDT, Height/Length Dosing, 115.8, kg, 05/22/24 21:55:00 EDT, Weight Dosing Start Date: 05/22/24 Status: Ordered Quantity: 200.0 Unit: mL Repeat number: 1 cefdinir (8 sources) Cephalosporin Antibacterial Start: 04-28-2019 Omnicef 250mg/5 mL oral suspension Oral, Refills(s) 0 Start Date: 04/28/19 Status: Ordered cephalexin 500 mg oral capsule (2 sources) Cephalosporin Antibacterial Start: 12-28-2024 End: 01-04-2025 take 1 capsule by mouth in the morning, then take 1 capsule by mouth in the evening, then take 1 capsule by mouth at bedtime cephalexin (Keflex) 500 MG capsule Indications: Phlebitis Take 1 capsule (500 mg) by mouth in the morning and 1 capsule (500 mg) in the evening and 1 capsule (500 mg) before bedtime. Do all this for 7 days. 21 capsule 12/28/2024 01/04/2025 Active cetirizine hydrochloride 5 mg oral tablet (20 sources) Histamine-1 Receptor Antagonist Start: 05-11-2023 take 2 tablets by mouth once daily cetirizine 5 mg oral tablet 10 mg = 2 tab(s), Oral, Daily, # 30 tab(s), Refills(s) 0 Start Date: 05/11/23 Status: Ordered Quantity: 30.0 Unit: tab(s) Repeat number: 1 Start: 03-10-2023 End: 09-26-2024 take 2 tablets by mouth once daily Cetirizine 10 mg tablet Active 20 MG PO Daily March 09, 2023 11:00pm Start: 03-10-2023 take 20 mg by mouth once daily Cetirizine Active 20 MG PO Daily March 10, 2023 12:00am cloNIDine hydrochloride 0.1 mg oral tablet (20 sources) Central alpha-2 Adrenergic Agonist Start: 05-11-2023 End: 09-26-2024 take 1 tablet by mouth once daily cloNIDine 0.1 mg tab 0.1 mg = 1 tab(s), Oral, Daily, Refills(s) 0 Start Date: 05/11/23 Status: Ordered Repeat number: 1 Start: 03-10-2023 End: 03-13-2023 take 0.15 mg by mouth at bedtime Clonidine Hcl 0.1 mg tablet Active 0.15 MG PO Bedtime March 13, 2023 8:40am Start: 03-10-2023 End: 03-13-2023 take 0.15 mg by mouth at bedtime Clonidine Hcl Active 0.15 MG PO Bedtime March 13, 2023 9:40am cyclobenzaprine hydrochloride 5 mg oral tablet (2 sources) Muscle Relaxant Start: 11-09-2024 End: 11-19-2024 take 1 tablet by mouth three times daily as needed for muscle spasms cyclobenzaprine (Flexeril) 5 MG tablet Indications: Stomach cramps , Stomach pain Take 1 tablet (5 mg) by mouth 3 (three) times a day as needed for muscle spasms for up to 10 days 30 tablet 11/09/2024 11/19/2024 Active Norethindrone-E.Estrad iol-Iron (20 sources) Estrogen Start: 03-10-2023 Norethindrone-E.Estra diol-Iron (08/22 ()) 1 mg-20 mcg (21)/75 mg (7) tablet Active 1 TAB PO Daily March 09, 2023 11:00pm Start: 03-10-2023 Norethindrone- E.Estradiol-Iron (08/22 ()) 1 mg-20 mcg (21)/75 mg (7) tablet Active 1 TAB PO Daily March 10, 2023 12:00am Start: 12-19-2022 take 1 tablet by jaz once daily 08/22 oral tablet Refill(s) 0, 2 8 EA, TAKE 1 TABLET BY MOUTH EVERY DAY Start Date: 12/19/22 Status: Ordered Repeat number: 1 take 1 tablet by once daily 08/22 1-20 MG-MCG tablet Take 1 tablet by mouth daily. 0 Active famotidine 10 mg oral tablet (11 sources) Histamine-2 Receptor Antagonist Start: 01-13-2024 take 1 tablet by mouth twice daily as needed for pain Pepcid AC 10 mg oral tablet 10 mg = 1 tab(s), Oral, BID, PRN Pain, # 30 tab(s), Refills(s) 0, Pharmacy: [id number], 165.1, cm, 01/13/24 18:35:00 EDT, [...] Status: Ordered FLUoxetine 40 mg oral capsule (20 sources) Serotonin Reuptake Inhibitor Start: 12-19-2022 End: 09-26-2024 FLUoxetine 40 mg Cap Refills(s) 0 Start Date: 12/19/22 Status: Ordered Repeat number: 1 60 actuat formoterol fumarate 0.005 mg/actuat / mometasone furoate 0.2 mg/actuat metered dose inhaler (1 source) Corticosteroid, beta2-Adrenergic Agonist take 2 puff(s) by inhalation every twelve hours mometasone Furo-Formoterol Fum (Dulera) 200-5 MCG/puff Aerosol Inhale 2 puffs every 12 hours. 0 Active lamoTRIgine 25 mg oral tablet (5 sources) Mood Stabilizer, Anti-epileptic Agent Start: 03-10-2023 take 1 tablet by mouth once daily Lamictal 25 mg Tab 25 mg = 1 tab(s), Oral, Daily, Refills(s) 0 Start Date: 05/11/23 Status: Ordered levETIRAcetam 500 mg oral tablet (10 sources) Start: 05-13-2023 take 1 tablet by mouth twice daily Keppra 500 mg Tab 500 mg = 1 tab(s), Oral, BID, # 60 tab(s), Refills(s) 0, Pharmacy: [id number], 165.1, cm, 05/11/23 8:01:00 EDT, Height/Length Dosing, 116.7, kg, 05/11/23 8:01:00 EDT, Weight Dosing Start Date: 05/13/23 Status: Ordered Start: 03-10-2023 End: 03-10-2023 take 1 tablet by mouth twice daily Levetiracetam 750 mg tablet Active 750 MG PO Twice daily March 09, 2023 11:00pm Start: 03-10-2023 End: 03-10-2023 Levetiracetam Discontinued M [...] anxiety, # 15 tab(s), Refills(s) 0, Pharmacy: [id number], 165, cm, 07/04/22 18:11:00 EST, Height/Length Dosing, 103.4, kg, 07/04/22 18:11:00 EST, Weight Dosing Start Date: 07/04/22 Status: Ordered lurasidone hydrochloride 60 mg oral tablet (20 sources) Atypical Antipsychotic Start: 03-10-2023 take 1 tablet by mouth once daily Lurasidone 60 mg tablet Active 60 MG PO Daily with supper March 09, 2023 11:00pm Start: 12-19-2022 lurasidone 60 mg oral tablet 30 EA, TAKE 1 TABLET BY ORAL ROUTE 1 TIME PER DAY WITH FOOD (AT LEAST 350 CALORIES), Refills(s) 0 Start Date: 12/19/22 Status: Ordered Repeat number: 1 lurasidone (Latu da) 40 MG tablet Take 20 mg by mouth in the evening. Take with meals Active take 1 tablet by jaz th at mealtime lurasidone (Latuda) 40 MG tablet Take 40 mg by mouth in the evening. Take with meals Active Melatonin (18 sources) Start: 04-25-2024 melatonin Refi lls(s) 0 Start Date: 04/25/24 Status: Ordered Repeat number: 1 Start: 04-25-2024 melatonin Refi lls(s) 0 Start Date: 04/25/24 Status: Ordered Start: 03-10-2023 take 1 tablet by jaz th at bedtime Melatonin 3 mg tablet extended release Active 3 MG PO Bedtime March 09, 2023 11:00pm End: 09-26-2024 take 1 tablet by mouth at bedtime melatonin 3 MG tablet Take 3 mg by mouth at bedtime 09/26/2024 Discontinued metoclopramide 10 mg oral tablet (20 sources) Dopamine-2 Receptor Antagonist Start: 11-30-2024 End: 03-09-2025 metoclopramide (Reglan) 10 MG tablet Indications: Nausea and vomiting during ([facility]) Take 1 tablet (10 mg) by mouth in the morning and 1 tablet (10 mg) at noon and 1 tablet (10 mg) in the evening. Take before meals. Take 1 tablet by mouth 30 minutes prior to meals 3 times daily as needed for nausea. 90 tablet 3 11/30/2024 03/09/2025 Discontinued (Therapy completed) metroNIDAZOLE 500 mg oral tablet (3 sources) Nitroimidazole Antimicrobial Start: 11-07-2024 End: 11-14-2024 take 1 tablet by mouth in the morning metroNIDAZOLE (Flagyl) 500 MG tablet Indications: BV (bacterial vaginosis) Take 1 tablet (500 mg) by mouth in the morning and 1 tablet (500 mg) before bedtime. Do all this for 7 days. Do not drink alcohol while taking this medication. 14 tablet 11/07/2024 11/14/2024 Active nystatin 100 unt/mg topical powder (1 source) Polyene Antifungal Start: 06-16-2023 nystatin 101072 UNIT/GM Powder powder Apply 1 Application topically. 0 06/16/2023 Active ondansetron 4 mg disintegrating oral tablet (20 sources) Serotonin-3 Receptor Antagonist Start: 08-18-2024 End: 03-09-2025 take 1 tablet by mouth every six hours for nausea ondansetron ODT (Zofran-ODT) 4 MG disintegrating tablet Indications: Nausea and vomiting during ([facility]) Take 1 tablet (4 mg) by mouth every 6 (six) hours if needed for nausea or vomiting 20 tablet 3 11/09/2024 03/09/2025 Discontinued (Therapy completed) Start: 06-18-2023 End: 06-18-2023 take 1 tablet by mouth once Ondansetron 4 MG Tab Dispe rsible tablet Take 1 tablet by mouth once. 0 06/18/2023 Active pantoprazole 40 mg delayed release oral tablet (20 sources) Proton Pump Inhibitor Start: 11-29-2024 take 1 tablet by mouth before mealtime pantoprazole (ProtoNix) 40 MG EC tablet Take 40 mg by mouth in the morning. Take before meals. 11/29/2024 Active Start: 05-11-2023 pantoprazole S odium (Protonix) 40 MG Pack Take 1 packet by mouth. 0 05/11/2023 Active Start: 05-11-2023 Protonix 40 mg tablet Refills(s) 0 Start Date: 05/11/23 Status: Ordered Repeat number: 1 Start: 05-11-2023 Protonix 40 mg tablet Refills(s) 0 Start Date: 05/11/23 Status: Ordered Start: 06-17-2017 End: 09-26-2024 take 1 tablet by mouth once daily Pantoprazole 40 tablet,delayed release (DR/EC) Discontinued 40 MG PO Daily June 17, 2017 12:00am March 10, 2023 4:27pm MV-Min-Fe Fum-FA-DHA ( 1 PO) (20 sources) MV-Min- Fe Fum-FA-DHA ( 1 PO) Take 1 each by mouth Daily Active promethazine hydrochloride 12.5 mg oral tablet (20 sources) Phenothiazine Start: 12-27-2024 End: 03-09-2025 take 1 tablet by mouth every six hours for nausea promethazine (Phenergan) 12.5 MG tablet Indications: Nausea and vomiting, unspecified vomiting type TAKE 1 TABLET (12.5 MG) BY MOUTH EVERY 6 (SIX) HOURS IF NEEDED FOR NAUSEA OR VOMITING 30 tablet 3 12/27/2024 03/09/2025 Discontinued (Therapy completed) Start: 09-26-2024 take 1 tablet by jaz th every six hours as needed for nausea and nausea, then take 1 tablet by mouth every six hours as needed for nausea and nausea promethazine (Phenergan) 12.5 MG tablet Indications: Nausea and vomiting, unspecified vomiting type Take 1 tablet (12.5 mg) by mouth every 6 (six) hours if needed for nausea or vomiting for up to 30 doses Take 1 tablet by mouth every 6 hours as needed for nausea. 30 tablet 2 09/26/2024 Active Start: 08-21-2024 take 1 tablet by jaz th every four hours promethazine 12.5 mg oral tablet 12.5 mg = 1 tab(s), Oral, q4hr, # 20 tab(s), Refills(s) 0, Pharmacy: [id number], 170, cm, 08/21/24 16:58:00 EST, Height/Length Dosing, 11.6, kg, 08/21/24 16:58:00 EST, Weight Dosing Start Date: 08/21/24 Status: Ordered Quantity: 20.0 Unit: tab(s) Repeat number: 1 traMADol hydrochloride 50 mg oral tablet (2 sources) Opioid Agonist Start: 01-12-2024 take 1-2 tablets by mouth every six hours as needed for pain traMADOL 50 mg Tab 1-2 tabs, Oral, q6hr, PRN Pain, # 8 tab(s), Refills(s) 0, Pharmacy: [id number], 165.1, cm, 01/12/24 15:00:00 EDT, Height/Length Dosing, 117.7, kg, 01/12/24 15:00:00 EDT, Weight Dosing Start Date: 01/12/24 Status: Ordered Zofran ODT 4 mg Tab-Dis (20 sources) Start: 05-22-2024 take 1 tablet by mouth every eight hours as needed for nausea Zofran ODT 4 mg Tab-Dis 4 mg = 1 tab(s), Oral, q8hr, PRN Nausea/Vomiting, # 12 tab(s), Refills(s) 0, [facility]: [id number], 170.2, cm, 05/22/24 21:55:00 EDT, Height/Length Dosing, 115.8, kg, 05/22/24 21:55:00 EDT, Weight Dosing Start Date: 05/22/24 Status: Ordered Quantity: 12.0 Unit: tab(s) Repeat number: 1 Start: 05-22-2024 take 1 tablet by jaz th every eight hours as needed for nausea Zofran ODT 4 mg Tab-Dis 4 mg = 1 tab(s), Oral, q8hr, PRN Nausea/Vomiting, # 12 tab(s), Refills(s) 0, [id number], cm, 05/22/24 21:55:00 EDT, Height/Length Dosing, 115.8, kg, 05/22/24 21:55:00 EDT, Weight Dosing Start Date: 05/22/24 Status: Ordered Start: 01-12-2024 take 1 tablet by jaz th every eight hours as needed for nausea Zofran ODT 4 mg Tab-Dis 4 mg = 1 tab(s), Oral, q8hr, PRN Nausea/Vomiting, # 12 tab(s), Refills(s) 0, [id number] 165.1, cm, 01/12/24 15:00:00 EDT, Height/Length Dosing, 117.7, kg, 01/12/24 15:00:00 EDT, Weight Dosing Start Date: 01/12/24 Status: Ordered Quantity: 12.0 Unit: tab(s) Repeat number: 1 Indication: Nausea Start: 01-12-2024 take 1 tablet by jaz th every eight hours as needed for nausea Zofran ODT 4 mg Tab-Dis 4 mg = 1 tab(s), Oral, q8hr, PRN Nausea/Vomiting, # 12 tab(s), Refills(s) 0, [id number] 165.1, cm, 01/12/24 15:00:00 EDT, Height/Length Dosing, 117.7, kg, 01/12/24 15:00:00 EDT, Weight Dosing Start Date: 01/12/24 Status: Ordered Completed/Discontinued Medications Medication Drug Class(es) Dates Sig (Normalized) Sig (Original) ethinyl estradiol 0.02 mg / norethindrone acetate 1 mg oral tablet (9 sources) Estrogen End: 09-26-2024 norethindrone-ethi nyl estradiol (08/22) 1-20 MG-MCG tablet Take 1 tablet by mouth Daily 09/26/2024 Discontinued hydrOXYzine hydrochloride 25 mg oral tablet (9 sources) Antihistamine Start: 10-15-2023 End: 09-26-2024 take 1 tablet by mouth every eight hours as needed for anxiety hydrOXYzine HCl (Atarax) 25 MG tablet TAKE 1 TABLET ORALLY EVERY 8 HOURS NEEDED FOR ANXIETY 10/15/2023 09/26/2024 Discontinued hyoscyamine sulfate 0.125 mg sublingual tablet (3 sources) Start: 06-17-2017 End: 03-10-2023 take 1 tablet under the tongue at bedtime Hyoscyamine Sulfate 0.125 mg tablet, sublingual Discontinued 0.125 MG SUBLINGUAL Before meals and at bedtime June 17, 2017 12:00am March 10, 2023 2:49pm melatonin 3 MG / pyridoxine hydrochloride 10 MG Extended Release Oral Tablet (16 sources) Start: 12-19-2022 take 1 tablet by mouth once at bedtime as needed melatonin-pyridoxi ne 3 mg-10 mg oral tablet, extended release Refill(s) 0, 30 EA, TAKE 1 TABLET BY ORAL ROUTE PER AT BEDTIME NEEDED FOR INSOMNIA Start Date: 12/19/22 Status: Ordered melatonin 3 mg / vitamin b6 10 mg oral tablet (2 sources) Start: 03-10-2023 End: 03-10-2023 Melatonin-Pyridoxi ne Hcl (B6) 3-10 mg tablet, IR and ER, biphasic Discontinued EACH PO March 09, 2023 11:00pm March 10, 2023 2:51pm montelukast 5 mg chewable tablet (3 sources) Leukotriene Receptor Antagonist Start: 06-17-2017 End: 03-10-2023 take 1 tablet by mouth once daily Montelukast 5 mg tablet,chewable Discontinued 5 MG PO Daily June 17, 2017 12:00am March 10, 2023 2:49pm naproxen 500 mg oral tablet (9 sources) Nonsteroidal Anti-inflammatory Drug Start: 01-31-2024 End: 09-26-2024 take 1 tablet by mouth every twelve hours at mealtime as needed naproxen (Naprosyn) 500 MG tablet TAKE 1 TABLET BY MOUTH EVERY 12 HOURS WITH FOOD OR MILK NEEDED 01/31/2024 09/26/2024 Discontinued QUEtiapine 25 mg oral tablet (3 sources) Atypical Antipsychotic Start: 07-15-2017 End: 03-10-2023 take 1 tablet by mouth once daily at bedtime Quetiapine (Seroquel) 25 mg Tablet Discontinued 25 MG PO Daily at bedtime July 15, 2017 12:00am March 10, 2023 2:49pm sertraline 50 mg oral tablet (3 sources) Serotonin Reuptake Inhibitor Start: 07-15-2017 End: 03-10-2023 take 1 tablet by mouth once daily Sertraline (Zoloft) 50 mg Tablet Discontinued 50 MG PO Daily July 15, 2017 12:00am March 10, 2023 2:49pm Problems Active Problems Problem Classification Problem Date Documented Da te Episodic/Chronic Abdominal pain (20 sources) Generalized abdominal pain; Translations: [Generalized abdominal pain] Onset: 4 Episodic Acute bronchitis (1 source) Acute bronchitis, unspecified; Translations: [ACUTE BRONCHITIS UNSPECIFIED] Onset: 3 Episodic Anxiety disorders (20 sources) Anxiety 05-11-2023 Chronic Conditions associated with [...] Onset: 2 Episodic Fluid and electrolyte disorders (2 sources) Hypokalemia; Translations: [Hypokalemia] Onset: 3 Episodic Headache; including migraine (1 source) Headache; Translations: [Headache, unspecified] Onset: 5 Episodic Immunizations and screening for infectious disease (2 sources) Exposure to sexually transmissible disorder; Translations: [Contact with and (suspected) exposure to infections with a predominantly sexual mode of transmission] 11-02-2024 Episodic Menstrual disorders (5 sources) Excessive and frequent menstruation with irregular cycle; Translations: [Missed period] Onset: 2 Chronic Miscellaneous mental health disorders (20 sources) Dissociative convulsions; 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-2024 Chronic Mood disorders (20 sources) Depressive disorder; Translations: [Depression] Onset: 3 07-15-2017 Chronic Nausea and vomiting (7 sources) Nausea with vomiting, unspecified; Translations: [Nausea] Onset: 2 Episodic Noninfectious gastroenteritis (17 sources) Gastroenteritis 01-20-2024 Episodic Nonmalignant breast conditions (1 source) Large breast; Translations: [Hypertrophy of breast] 06-30-2023 Episodic Other aftercare (1 source) Long-term current use of drug therapy; Translations: [Other group home (current) drug therapy] Onset: 3 Episodic Other complications of (1 source) Vomiting of ; Translations: [Vomiting of , unspecified] Onset: 5 Episodic Other complications of (1 source) Finding related to ; Translations: [Other specified related conditions, unspecified trimester] Onset: 5 Episodic Other complications of (4 sources) Vomiting of , unspecified; Translations: [Unspecified vomiting of , unspecified as to episode of care or not applicable] 11-09-2024 Episodic Other complications of (2 sources) size does not accord with dates; Translations: [Uterine size-date discrepancy, unspecified trimester] 02-01-2025 Episodic Other female genital disorders (2 sources) Vaginal discharge; Translations: [Other specified noninflammatory disorders of vagina] 11-02-2024 Episodic Other gastrointestinal disorders (1 source) H/O: gastrointestinal disease; Translations: [Personal history of other diseases of the digestive system] Onset: 3 Episodic Other gastrointestinal disorders (1 source) Diarrhea; Translations: [Diarrhea, unspecified] Onset: 4 Episodic Other gastrointestinal disorders (1 source) Dysphagia; Translations: [Other dysphagia] Onset: 4 Episodic Other gastrointestinal disorders (7 sources) Esophageal dysphagia 04-25-2024 Episodic Other liver diseases (1 source) Enzyme level - finding; Translations: [Abnormal levels of other serum enzymes] Onset: 4 Episodic Other nutritional; endocrine; and metabolic disorders (3 sources) Obesity; Translations: [Obesity, unspecified] Onset: 3 Chronic Other nutritional; endocrine; and metabolic disorders (1 source) Morbid obesity; Translations: [Morbid (severe) obesity due to excess calories] Onset: 3 Chronic Other nutritional; endocrine; and metabolic disorders (19 sources) Body mass index 40+ - severely obese; Translations: [Morbid (severe) obesity due to excess calories] Onset: 3 06-30-2023 Chronic Other nutritional; endocrine; and metabolic disorders (16 sources) Obesity caused by energy imbalance 02-09-2024 Chronic Other and delivery including normal (20 sources) ; Translations: [Encounter for supervision of normal , unspecified, unspecified trimester] 08-25-2024 Episodic Other screening for suspected conditions (not mental disorders or infectious disease) (8 sources) Encounter for observation for other suspected diseases and conditions ruled out; Translations: [Patient encounter status] Onset: 4 Episodic Other upper respiratory disease (1 source) Seasonal allergic rhinitis; Translations: [Other seasonal allergic rhinitis] Onset: 3 Chronic Other upper respiratory infections (7 sources) Acute sinusitis, unspecified; Translations: [Acute upper respiratory infection] Onset: 2 Episodic Pancreatic disorders (not diabetes) (20 sources) Acute pancreatitis; Translations: [Acute pancreatitis without necrosis or infection, unspecified] Onset: 4 Episodic Phlebitis; thrombophlebitis and thromboembolism (2 sources) Phlebitis; Translations: [Phlebitis and thrombophlebitis of unspecified site] 12-28-2024 Episodic Poisoning by other medications and drugs (3 sources) Accidental acetaminophen poisoning; Translations: [Poisoning by 4-Aminophenol derivatives, accidental (unintentional), initial encounter] Onset: 3 Episodic Residual codes; unclassified (2 sources) FH: Gastrointestinal disease; Translations: [Family history of other diseases of the digestive system] Onset: 4 Episodic Residual codes; unclassified (17 sources) Family history of disorder of pancreas 01-22-2024 Episodic Residual codes; unclassified (2 sources) Gestation period, 13 weeks; Translations: [13 weeks gestation of ] 09-26-2024 Episodic Residual codes; unclassified (2 sources) Gestation period, 18 weeks; Translations: [18 weeks gestation of ] 11-02-2024 Episodic Residual codes; unclassified (2 sources) Gestation period, 17 weeks; Translations: [17 weeks gestation of ] 11-09-2024 Episodic Residual codes; unclassified (2 sources) Gestation period, 22 weeks; Translations: [22 weeks gestation of ] 11-30-2024 Episodic Residual codes; unclassified (2 sources) Gestation period, 26 weeks; Translations: [26 weeks gestation of ] 12-28-2024 Episodic Residual codes; unclassified (2 sources) Gestation period, 29 weeks; Translations: [29 weeks gestation of ] 01-18-2025 Episodic Residual codes; unclassified (2 sources) Gestation period, 32 weeks; Translations: [32 weeks gestation of ] 02-01-2025 Episodic Residual codes; unclassified (2 sources) Gestation period, 34 weeks; Translations: [34 weeks gestation of ] 02-16-2025 Episodic Residual codes; unclassified (2 sources) Gestation period, 35 weeks; Translations: [35 weeks gestation of ] 02-23-2025 Episodic Residual codes; unclassified (4 sources) Gestation period, 36 weeks; Translations: [36 weeks gestation of ] 03-02-2025 Episodic Spondylosis; intervertebral disc disorders; other back problems (1 source) Pain in thoracic spine; Translations: [Pain in thoracic spine] 06-30-2023 Episodic Substance-related disorders (20 sources) Smoker; Translations: [Nicotine dependence] Onset: 4 05-24-2022 Chronic Comment on above: Added secondary to d ocumentation in Social History. Suicide and intentional self-inflicted injury (11 sources) Suicidal thoughts; Translations: [Suicidal ideations] Onset: 2 Episodic Unclassified (4 sources) CONTACT W/AND (SUSP) [...] injuries and conditions due to external causes (17 sources) Injury of head; Translations: [Unspecified injury of head, initial encounter] Onset: 03-16-2023 Episodic Other upper respiratory disease (1 source) Nasal congestion; Translations: [NASAL CONGESTION] Onset: 08-08-2022 Episodic Residual codes; unclassified (1 source) Pain, unspecified; Translations: [PAIN UNSPECIFIED] Onset: 03-08-2022 Episodic Residual codes; unclassified (17 sources) Insomnia; Translations: [Insomnia, unspecified] Onset: 05-11-2023 Episodic Residual codes; unclassified (20 sources) Altered mental status; Translations: [Altered mental status, unspecified] Onset: 02-03-2024 08-11-2024 Episodic Syncope (10 sources) Syncope and collapse; Translations: [Syncope and collapse] Onset: 10-06-2022 Episodic Unclassified (1 source) CONTACT W/AND (SUSP) EXPOS COVID-19; Translations: [CONTACT W/AND (SUSP) EXPOS COVID-19] Onset: 09-11-2022 Unclassified (1 source) COUGH, UNSPECIFIED; Translations: [COUGH, UNSPECIFIED] Onset: 07-24-2022 Results Test Name Value Interpretation Reference Range Facility Urinalysis macro (dipstick) panel (U)on 03-09-2025 Bilirubin, UA Negative Negative - 4(70) +++ mg/dL [facility] Blood, UA Negative Negative - 50 Balwinder/mcL [facility] Clarity, UA Clear [facility] Color, UA Yellow [facility] Glucose, UA Negative Negative - 1999(110) ++++ mg/dL [facility] Interpretation and review of laboratory results Normal [facility] Ketones, UA Negative Negative - 160(16) ++++ mg/dL [facility] Leukocytes, UA Negative Negative - 500+++ Uzair/mcL [facility] Nitrite, UA Negative Negative - Positive [facility] pH, UA 7 5 - 9 [facility] Protein, UA Negative Negative - 1999(20) ++++ mg/dL [facility] Spec Grav, UA 1.01 1 - 1.03 [facility] Urobilinogen, UA 1.0 0.2 - 12 mg/dL [facility] Urinalysis macro (dipstick) panel (U)on 03-02-2025 Bilirubin, UA Negative Negative - 4(70) +++ mg/dL [facility] Blood, UA Negative Negative - 50 Balwinder/mcL [facility] Clarity, UA Clear [facility] Color, UA Yellow [facility] Glucose, UA Negative Negative - 1999(110) ++++ mg/dL [facility] Interpretation and review of laboratory results Normal [facility] Ketones, UA Negative Negative - 160(16) ++++ mg/dL [facility] Leukocytes, UA Negative Negative - 500+++ Uzair/mcL [facility] Nitrite, UA Negative Negative - Positive [facility] pH, UA 6 5 - 9 [facility] Protein, UA Negative Negative - 1999(20) ++++ mg/dL [facility] Spec Grav, UA 1.015 1 - 1.03 [facility] Urobilinogen, UA 1.0 0.2 - 12 mg/dL [facility] US OB FOLLOW UP TRANSABDOMIN AL APPROACHon 02-16-2025 US OB FOLLOW UP TRANSABDOMINAL APPROACH FINDINGS: A single, live intrauterine is present [...] 341 grams ( 5 pound, 0 ounces). IMPRESSION: Single, live intrauterine , current sonographic age of 38 weeks and 6 days, with an estimated date of delivery of March 31, 2025. * Estimated Weight (g) by Percentile is based upon an accurate estimated age based on last menstrual period. TRANSCRIBED BY: ELECTRONICALLY SIGNED BY: Marcelo Jackson MD Normal Not Available Comment on above: Order Comment: US OB SCAN FOR GROWTH Estimated Date of Delivery: 03/30/25 Gestational Age as of 02/01/2025: 31w6d Urinalysis macro (dipstick) panel (U)on 02-16-2025 Bilirubin, UA Negative Negative - 4(70) +++ mg/dL [facility] Blood, UA Negative Negative - 50 Balwinder/mcL [facility] Clarity, UA Clear [facility] Color, UA Yellow [facility] Glucose, UA Negative Negative - 1999(110) ++++ mg/dL [facility] Interpretation and review of laboratory results Abnormal [facility] Ketones, UA Negative Negative - 160(16) ++++ mg/dL [facility] Leukocytes, UA Negative Negative - 500+++ Uzair/mcL [facility] Nitrite, UA Negative Negative - Positive [facility] pH, UA 7 5 - 9 [facility] Protein, UA Trace Negative - 1999(20) ++++ mg/dL [facility] Spec Grav, UA 1.015 1 - 1.03 [facility] Urobilinogen, UA 0.2 0.2 - 12 mg/dL [facility] Urinalysis macro (dipstick) panel (U)on 02-01-2025 Bilirubin, UA Positive Negative - 4(70) +++ mg/dL [facility] Comment on above: small Blood, UA Negative Negative - 50 Balwinder/mcL [facility] Clarity, UA Clear [facility] Color, UA Yellow [facility] Glucose, UA Negative Negative - 1999(110) ++++ mg/dL [facility] Interpretation and review of laboratory results Abnormal [facility] Ketones, UA Negative Negative - 160(16) ++++ mg/dL [facility] Leukocytes, UA Positive Negative - 500+++ Uzair/mcL [facility] Comment on above: small Nitrite, UA Negative Negative - Positive [facility] pH, UA 7.5 5 - 9 [facility] Protein, UA Positive Negative - 1999(20) ++++ mg/dL [facility] Comment on above: 100mg/dL Spec Grav, UA 1.02 1 - 1.03 [facility] Urobilinogen, UA 1.0 0.2 - 12 mg/dL [facility] Urinalysis macro (dipstick) panel (U)on 01-18-2025 Bilirubin, UA Negative Negative - 4(70) +++ mg/dL [facility] Blood, UA Negative Negative - 50 Balwinder/mcL [facility] Clarity, UA Clear [facility] Color, UA Yellow [facility] Glucose, UA Negative Negative - 1999(110) ++++ mg/dL [facility] Interpretation and review of laboratory results Abnormal [facility] Ketones, UA Negative Negative - 160(16) ++++ mg/dL [facility] Leukocytes, UA Negative Negative - 500+++ Uzair/mcL [facility] Nitrite, UA Negative Negative - Positive [facility] pH, UA 7 5 - 9 [facility] Protein, UA Negative Negative - 1999(20) ++++ mg/dL [facility] Spec Grav, UA 1.015 1 - 1.03 [facility] Urobilinogen, UA 0.2 0.2 - 12 mg/dL [facility] US OB LIMITED 1+ FETUSESon 0 12-28-2024 US OB LIMITED 1+ FETUSES EXAM: US OB LIMITED 1+ FETUSES HISTORY: [...] II, MD, PHD at 28-Dec-2024 11:19:30 PM [facility] Normal Not Available Comment on above: Order Comment: US OB INCOMPLETE ANATOMY Estimated Date of Delivery: 03/30/25 Gestational Age as of 11/30/2024: 22w6d Urinalysis macro (dipstick) panel (U)on 12-28-2024 Bilirubin, UA Negative Negative - 4(70) +++ mg/dL [facility] Blood, UA Negative Negative - 50 Balwinder/mcL [facility] Clarity, UA Clear [facility] Color, UA Yellow [facility] Glucose, UA Negative Negative - 2000(110) ++++ mg/dL [facility] Interpretation and review of laboratory results Abnormal [facility] Ketones, UA Negative Negative - 160(16) ++++ mg/dL [facility] Leukocytes, UA Negative Negative - 500+++ Uzair/mcL [facility] Nitrite, UA Negative Negative - Positive [facility] pH, UA 7 5 - 9 [facility] Protein, UA Trace Negative - 2000(20) ++++ mg/dL [facility] Spec Grav, UA 1.025 1 - 1.03 [facility] Urobilinogen, UA 1.0 0.2 - 12 mg/dL [facility] ALL CBC WITH AUTO DIFFon BASOPHILS ABSOLUTE AUTO 0 [facility] Basophils/100 WBC (Bld) 0.2 % 0.2 - 2.0 % [facility] Eosinophils/100 WBC (Bld) 2.3 % 0.9 - 7.0 % [facility] Erythrocyte distribution width (RBC) [Ratio] 13.5 % 11.0 - 15.0 % [facility] Hematocrit (Bld) [Volume fraction] 32.7 % Low 36.0 - 48.0 % [facility] Hemoglobin (Bld) [Mass/Vol] 11 g/dL Low 12.0 - 16.0 g/dL [facility] IMMATURE GRANULOCYTES ABS AUTO 0.03 [facility] Immature granulocytes/100 WBC (Bld) 0.3 % 0.0 - 0.5 % [facility] Interpretation and review of laboratory results Abnormal [facility] LYMPHOCYTES ABSOLUTE AUTO 2.2 [facility] Lymphocytes/100 WBC (Bld) 25 % 20.5 - 60.0 % [facility] MCH (RBC) [Entitic mass] 28.7 pg 26.7 - 34.0 pg [facility] MCHC (RBC) [Mass/Vol] 33.6 g/dL 29.9 - 35.2 g/dL [facility] MCV (RBC) [Entitic vol] 85.4 fL 81.0 - 99.0 fL [facility] MONOCYTES ABSOLUTE AUTO 0.5 [facility] Monocytes/100 WBC (Bld) 5.3 % 1.7 - 12.0 % [facility] NEUTROPHILS ABSOLUTE AUTO 5.9 [facility] Neutrophils/100 WBC (Bld) 66.9 % 43.0 - 75.0 % [facility] Platelet mean volume (Bld) [Entitic vol] 9.7 fL 9.5 - 13.5 fL [facility] TBH EO # 0.2 [facility]H PLT [address] [facility] RBC 3.83 Low [facility] TB WBC 8.8 [facility] Urinalysis macro (dipstick) panel (U)on 11-30-2024 Bilirubin, UA Negative Negative - 4(70) +++ mg/dL [facility] Blood, UA Negative Negative - 50 Balwinder/mcL [facility] Clarity, UA Clear [facility] Color, UA Yellow [facility] Glucose, UA Negative Negative - 2000(110) ++++ mg/dL [facility] Interpretation and review of laboratory results Abnormal [facility] Ketones, UA Positive Negative - 160(16) ++++ mg/dL [facility] Comment on above: trace Leukocytes, UA Negative Negative - 500+++ Uzair/mcL [facility] Nitrite, UA Negative Negative - Positive [facility] pH, UA 7 5 - 9 [facility] Protein, UA Positive Negative - 2000(20) ++++ mg/dL [facility] Comment on above: 30 Spec Grav, UA 1.025 1 - 1.03 [facility] Urobilinogen, UA 1.0 0.2 - 12 mg/dL [facility] ED Note-Physicianon 11-10-19 ED Note-Physician ED Note-Physician Basic Information Time Seen: Nickie Pablo MELÉNDEZ 11/08/2024 16:18 Chief Complaint Pt presnets to ED with complaints of abd pain, nausea and GLASER onset today. pt 19 weeks IUP, denies bleeding. History of Present Illness Patient is a 18-year-old 19-week female that presents today for evaluation of her abdominal pain with associated nausea, vomiting, and headache. Patient states that she does have a ultrasound 1 week ago that demonstrated intrauterine with no complications. She started to develop some new onset lower abdominal pain today. Has had continued nausea and vomiting but it is worsened today. Does have a mild headache. She denies any vaginal bleeding or discharge. States that she is having a little bit of dysuria and frequency. Denies any fevers, bodies, chills. Denies any cough or congestion. Denies any chest pain or shortness of breath. Review of Systems No other aggravating or relieving factors no other associated symptoms no other prior treatments or complaints. Family: Reviewed and noncontributory Social: lives at home Review of systems negative unless otherwise specified in the HPI. Physical Exam Vitals & Measurements T: 36.4 ???C(Oral) HR: 70(Monitored) RR: 20 BP: 117/64 SpO2: 96% HT: 170 cm WT: 111.6 kg BMI: 38.62 General: The patient appears well and in no apparent distress. Patient is resting comfortably on cart. Skin: Warm, dry, no pallor noted. Head: Normocephalic, atraumatic Neck: No JVD Eye: PERRLA, EOMI ENT: Moist mucus membranes Cardiovascular: Regular rate and rhythm. Normal peripheral perfusion Respiratory: CTA bilaterally. No respiratory distress no accessory muscle use no obvious audible wheezing Chest Wall: no deformity Musculoskeletal: normal ROM, no deformity, no swelling GI: Soft no obvious distention. No rebound or rigidity. No guarding. Diffuse lower abdominal tenderness. Neurological: A&O moves all extremities equal strength and symmetry Psychiatric: Cooperative and appropriate Medical Decision Making Patient is a 18-year-old 19-week female that presents today for evaluation of her abdominal pain with associated nausea, vomiting, and headache. Just had an ultrasound a week ago that was normal without complications. Started to have new onset lower abdominal pain today. Has had continued nausea and vomiting that is worse today as well as a mild headache. Denies any other systemic signs or symptoms aside from a little bit of dysuria. On exam patient is afebrile nontoxic-appearing. She does have diffuse lower abdominal tenderness. Remainder of the abdomen soft nontender with no evidence of guarding or distention. CTA to bilateral lung lujan. RRR. Labs demonstrate mild anemia with hemoglobin of 11.6 and hematocrit of 33.2. No other acute abnormalities identified. UA negative for UTI. Ultrasound of the appendix there is minimal visualization. Pelvic ultrasound demonstrates stable intrauterine with good heart tones. Patient was given a dose of acetaminophen and Phenergan here in the ED and is feeling better. Unsure of the exact etiology of her pain at this time but given she is feeling better with stable labs as well as negative workup patient will be discharged home with close follow-up with her [facility] Dr. Zamudio. We discussed if she has new or worsening symptoms she should promptly return to the ED for evaluation. Return to ED precautions were reviewed with the patient at length. Assessment/Plan Abdominal pain in (O26.899: Other specified related conditions, unspecified trimester) Headache (R51.9: Headache, unspecified) Nausea & vomiting (R11.2: Nausea with vomiting, unspecified) Unspecified abdominal pain (R10.9: Unspecified abdominal pain) Orders: acetaminophen, 975 mg = 3 tab(s), Tab, Oral, Once, Stop date 11/08/24 16:36:00 EDT, STAT, Start date 11/08/24 16:36:00 EDT, 11/08/24 16:36:00 EDT promethazine, 25 mg = 1 tab(s), Tab, Oral, Once, Stop date 11/08/24 16:35:00 EDT, STAT, Start date 11/08/24 16:35:00 EDT, 11/08/24 16:35:00 EDT Basic Metabolic Panel Beta hCG Quantitative CBC w/ Auto Diff eGFR Extra Blue Tube Extra SST Tube Hepatic Function Panel Lipase Level U Beta Hcg Qual UA with Cult Rflx US Appendix US Limited Medications Administered Given acetaminophen 325 mg Tab, 975 mg, Oral promethazine 25 mg Tab, 25 mg, Oral Disposition Plan Patient Discharge Condition Stable Discharge Disposition Home Discharge Prescription List Prescriptions No active prescription medications Follow-up With When Contact Information Ranjit ZAMUDIO In 3 days 11/11/2024 EDT [facility] [address] [facility] [place] [id number]- Business (1) Additional Instructions: Fredi Ellington In 3 days [address] [facility] [facility] [place] [address] [place] [id number]- Business (1) Additional Instructions: Patient Education Nausea and Vomiting, Ad (more content not included)... [facility] Comment on above: Result Comment: Elec tronically Signed By: Pablo Fu PA-C\.br\Date and Time Signed: 11/08/24 20:32 EDT\.br\Electronically Co-Signed By: Radha Whipple DO\.br\Date and Time Co-Signed: 11/09/24 07:10 EDT US Appendixon 11-09-2024 US Appendix Exam Date/Time: 11/08/2024 18:11 EDT Reason for Exam: Abdominal pain Report IMPRESSION: The appendix is not visualized. There are no secondary sonographic signs to suggest appendicitis. The above findings should be interpreted in the context of the patient's clinical presentation and laboratory values. REASON FOR EXAM: Currently . Right lower quadrant pain. Nausea and vomiting, present for the entire . COMPARISON: CT 03/03/2024. EXAMINATION: US Appendix TECHNIQUE: Longitudinal and transverse grayscale ultrasonographic images of the RIGHT lower abdominal quadrant were performed with graded compression. Color Doppler imaging was done in areas of interest. FINDINGS: APPENDIX: The appendix is not visualized. FLUID: There is no focal fluid collection or abscess. There is no right lower abdominal quadrant free fluid. RIGHT LOWER QUADRANT ABDOMINAL FAT: The right lower quadrant abdominal fat is grossly unremarkable. MESENTERIC LYMPH NODES: No pathologically large lymph nodes are observed. No lymph nodes are larger than 7 mm in short axis. ADDITIONAL FINDINGS: None. Ordering Provider: Pablo uF FINAL REPORT Dictated: 11/09/2024 9:32 am Mina Botello MD Signed (Electronic Signature): 11/09/2024 9:32 am Signed by: Mina Botello MD Transcribed by: GARTH Technologist: RENNY [facility] US Limitedon 11-09 US Limited Exam Date/Time: 11/08/2024 18:14 EDT Reason for Exam: low abdominal pain;Other (please specify) Report IMPRESSION: SINGLE LIVE INTRAUTERINE . Limited study performed. US Limited: 11/08/2024 5:27 PM CLINICAL HISTORY: Lower abdominal pain. Nausea and vomiting. Gestational Age by LMP: 19 weeks, 5 days COMPARISON: CT 03/03/2024. Transabdominal ultrasound of the gravid uterus was performed. FINDINGS: A single live intrauterine is noted in breech position. cardiac activity is measured at 128 bpm. The cervix is not well evaluated transabdominally but appears grossly closed. PLACENTA: Posterior placenta without evidence of placenta previa. The amniotic fluid volume appears within normal limits for gestation. MEASUREMENTS: No dedicated measurements were performed on this limited study. A full anatomy survey was not performed. Tech Comments: JESSICA 03-30-25 GA 19w5d 1 - Transabdominal Ultrasound Performed FHR (bpm) 128 Positioning Breech Report Ordering Provider: Pablo Fu FINAL REPORT Dictated: 11/09/2024 9:36 am Mina Botello MD. Signed (Electronic Signature): 11/09/2024 9:36 am Signed by: Mina Botello MD Transcribed by: GARTH Technologist: RENNY [facility] Urinalysis macro (dipstick) panel (U)on 11-09-2024 Bilirubin, UA Negative Negative - 4(70) +++ mg/dL [facility] Blood, UA Negative Negative - 50 Balwinder/mcL [facility] Clarity, UA Clear [facility] Color, UA Yellow [facility] Glucose, UA Negative Negative - 1999(110) ++++ mg/dL [facility] Interpretation and review of laboratory results Abnormal [facility] Ketones, UA Negative Negative - 160(16) ++++ mg/dL [facility] Leukocytes, UA Positive Negative - 500+++ Uzair/mcL [facility] Comment on above: small Nitrite, UA Negative Negative - Positive [facility] pH, UA 7 5 - 9 [facility] Protein, UA Negative Negative - 1999(20) ++++ mg/dL [facility] Spec Grav, UA 1.02 1 - 1.03 [facility] Urobilinogen, UA 0.2 0.2 - 12 mg/dL [facility] BMPon 11-08-2024 Anion gap [Moles/Vol] 12 mmol/L Normal 6-16 [facility] Comment on above: Performed By: #### 2 [id number] #### [facility] [address] [place] [address] Calcium [Mass/Vol] 8.4 mg/dL Low 8.9-11.1 [facility] Comment on above: Performed By: #### 2 [id number] #### [facility] [address] [place] [address] Chloride [Moles/Vol] 103 mmol/L Normal 101-111 [facility] Comment on above: Performed By: #### 2 [id number] #### [facility] [address] [place] [address] CO2 [Moles/Vol] 24 mmol/L Normal 21-31 [facility] Comment on above: Performed By: #### 2 [id number] #### [facility] [address] [place] [address] Creatinine [Mass/Vol] 0.6 mg/dL Normal 0.5-1.3 [facility] Comment on above: Performed By: #### 2 [id number] #### [facility] [address] [place] [address] Glucose [Mass/Vol] 97 mg/dL Normal 55-199 [facility] Comment on above: Performed By: #### 2 [id number] #### [facility] [address] [place] [address] Potassium [Moles/Vol] 3.5 mmol/L Normal 3.5-5.3 [facility] Comment on above: Performed By: #### 2 [id number] #### [facility] [address] [place] [address] Sodium [Moles/Vol] 135 mmol/L Normal 135-145 [facility] Comment on above: Performed By: #### 2 [id number] #### [facility] [address] [place] [address] Urea nitrogen [Mass/Vol] 6 mg/dL Normal 5-21 [facility] Comment on above: Performed By: #### 2 [id number] #### [facility] [address] [place] [address] Urea nitrogen/Creatinine [Mass ratio] 10 No Units Normal 10-20 [facility] Comment on above: Performed By: #### 2 [id number] #### [facility] [address] [place] [address] BhCG Quanton 11-08-2024 [place] [address] m[IU]/mL High 1-3 [facility] Comment on above: Result Comment: 'F N ON < 1 - 3' ' 0.2 - 1 WEEK = 5 TO 50' ' 1 - 2 WEEKS = 50 - 500' ' 2 - 3 WEEKS = 100 - 5000' ' 3 - 4 WEEKS = 500 - 04461' ' 4 - 5 WEEKS = 1000 - 00172' ' 5 - 6 WEEKS = 72744 - 082376' ' 6 - 8 WEEKS = 36695 - 141937' ' 8 - 12 WEEKS = 61923 - 396674' Performed By: #### 2 [id number] #### [facility] [address] [place] [address] CBC w/ Auto Diffon 5 Basophils/100 WBC (Bld) 0.4 % Normal 0.0-2.0 [facility] Comment on above: Performed By: #### 2 [id number] #### [facility] [address] [place] [address] Basophils/Leukocytes Auto (Bld) [Pure # fraction] 0.0 E9/L Normal 0.0-0.2 [facility] Comment on above: Performed By: #### 2 [id number] #### [facility] [address] [place] [address] Eosinophils (Bld) [#/Vol] 0.1 E9/L Normal 0.0-0.5 [facility] Comment on above: Performed By: #### 2 [id number] #### [facility] [address] [place] [address] Eosinophils/100 WBC (Bld) 1.8 % Normal 0.0-8.0 [facility] Comment on above: Performed By: #### 2 [id number] #### [facility] [address] [place] [address] Erythrocyte distribution width (RBC) [Ratio] 14.1 % Normal 10.9-14.2 [facility] Comment on above: Performed By: #### 2 [id number] #### [facility] [address] [place] [address] Hematocrit (Bld) [Volume fraction] 33.2 % Low 34.0-46.0 [facility] Comment on above: Performed By: #### 2 [id number] #### [facility] [address] [place] [address] Hemoglobin (Bld) [Mass/Vol] 11.6 g/dL Low 12.0-16.0 [facility] Comment on above: Performed By: #### 2 [id number] #### [facility] [address] [place] [address] Lymphocytes (Bld) [#/Vol] 1.8 E9/L Normal 1.0-4.0 [facility] Comment on above: Performed By: #### 2 [id number] #### [facility] [address] [place] [address] Lymphocytes/100 WBC (Bld) 21.6 % Normal 14.0-50.0 [facility] Comment on above: Performed By: #### 2 [id number] #### [facility] [address] [place] [address] MCH (RBC) [Entitic mass] 29.0 pg Normal 27.0-34.0 [facility] Comment on above: Performed By: #### 2 [id number] #### [facility] [address] [place] [address] MCHC (RBC) [Mass/Vol] 35.0 g/dL Normal 31.4-36.0 [facility] Comment on above: Performed By: #### 2 [id number] #### [facility] [address] [place] [address] MCV (RBC) [Entitic vol] 82.8 fL Normal 80.0-100.0 [facility] Comment on above: Performed By: #### 2 [id number] #### [facility] [address] [place] [address] Monocytes (Bld) [#/Vol] 0.5 E9/L Normal 0.2-1.0 [facility] Comment on above: Performed By: #### 2 [id number] #### [facility] [address] [place] [address] Neutrophils (Bld) [#/Vol] 5.9 E9/L Normal 2.0-7.5 [facility] Comment on above: Performed By: #### 2 [id number] #### [facility] [address] [place] [address] Neutrophils/100 WBC (Bld) 69.9 % Normal 36.0-75.0 [facility] Comment on above: Performed By: #### 2 147131 #### [facility] [address] [place] [address] Platelet 354.0 E9/L Normal 150.0-500. 0 [facility] Comment on above: Performed By: #### 2 [id number] #### [facility] [address] [place] [address] Platelet mean volume (Bld) [Entitic vol] 7.9 fL Normal 6.4-10.8 [facility] Comment on above: Performed By: #### 2 [id number] #### [facility] [address] [place] [address] RBC (Bld) [#/Vol] 4.0 E12/L Low 4.3-5.9 [facility] Comment on above: Performed By: #### 2 [id number] #### [facility] [address] [place] [address] WBC corrected for nucl RBC Auto (Bld) [#/Vol] 8.4 E9/L Normal 4.0-11.0 [facility] Comment on above: Performed By: #### 2 756259 #### [facility] [address] [place] [address] CHEMISTRYOrdered By: SYSTEM SYSTEM on 11-08-2024 Albumin [Mass/Vol] 3.2 g/dL Low 3.3 - 5.0 gm/dL [facility] Albumin/Globulin [Mass ratio] 0.9 {ratio} Low 1.1 - 2.2 [facility] ALP [Catalytic activity/Vol] 50 [iU]/d Normal 21 - 98 Int._Unit/ L [facility] ALT No additional P-5'-P [Catalytic activity/Vol] 7 [iU]/d Normal 6 - 46 Int._Unit/ L [facility] Anion gap [Moles/Vol] 12 mmol/L Normal 6 - 16 mEq/L [facility] AST [Catalytic activity/Vol] 10 [iU]/d Normal 5 - 43 Int._Unit/ L [facility] Bilirubin [Mass/Vol] 0.2 mg/dL Normal 0.0 - 1 .1 mg/dL [facility] Bilirubin.direct [Mass/Vol] 0.0 mg/dL Normal 0.0 - 0.4 mg/dL [facility] Bilirubin.indirect [Mass or moles/Vol] 0.2 mg/dL Normal 0.1 - 0.9 mg/dL [facility] Calcium [Mass/Vol] 8.4 mg/dL Low 8.9 - 11. 1 mg/dL [facility] Chloride [Moles/Vol] 103 mmol/L Normal 101 - 1 11 mmol/L [facility] CO2 [Moles/Vol] 24 mmol/L Normal 21 - 31 mmol/L [facility] Creatinine [Mass/Vol] 0.6 mg/dL Normal 0.5 - 1.3 mg/dL [facility] eGFR 132 mL/min/1.73 m2 Normal >=59mL/mi n /1.73 m2 [facility] Globulin (S) [Mass/Vol] 3.5 g/dL Normal 1.4 - 4.0 gm/dL [facility] Glucose [Mass/Vol] 97 mg/dL Normal 55 - 199 mg/dL [facility] [place] [address] m[IU]/mL High 1 - 3 mIU/mL [facility] Comment on above: Result Comment: 'F N ON < 1 - 3' ' 0.2 - 1 WEEK = 5 TO 50' ' 1 - 2 WEEKS = 50 - 500' ' 2 - 3 WEEKS = 100 - 5000' ' 3 - 4 WEEKS = 500 - 28085' ' 4 - 5 WEEKS = 1000 - 76090' ' 5 - 6 WEEKS = 78949 - 822910' ' 6 - 8 WEEKS = 36368 - 922951' ' 8 - 12 WEEKS = 38002 - 915266' Lipase [Catalytic activity/Vol] 29 U/L Normal 13 - 58 unit/L [facility] Potassium [Moles/Vol] 3.5 mmol/L Normal 3.5 - 5.3 mmol/L [facility] Protein [Mass/Vol] 6.7 g/dL Normal 6.0 - 7.8 gm/dL [facility] Sodium [Moles/Vol] 135 mmol/L Normal 135 - 145 mmol/L [facility] Urea nitrogen [Mass/Vol] 6 mg/dL Normal 5 - 21 mg/dL [facility] Urea nitrogen/Creatinine [Mass ratio] 10 mg/mg Normal 10 - 20 [facility] ED Clinical Summaryon 2024 ED Clinical Summary ED Clinical Summary [place] [address] ED Clinical Summary Person Information Name: ROSE MARY SCHNEIDER [facility] Age: 18 Years : 2005 Sex: Female Language: Wallisian PCP: Fredi Ellington MD Marital Status: Single Visit Id: Visit Reason: Abdominal pain - ; Headache; Nausea; Abdominal pain; STABBING PAIN IN ABDOMEN, MASSIVE HEADACHE AND IS 19 WEEKS Speciality: Acuity: 3 Enc Type: Emergency Med Service: Emergency Arrival: 11/08/2024 16:05:06 Discharge: 11/08/2024 18:27:06 LOS: 000 02:22 Checkin: 11/08/2024 16:05:06 Checkout: 11/08/2024 18:27:06 Dispo Type: Home (Routine DC) EVENTS: Event Name Event Status Request Date/Time Start Date/Time Complete Date/Time Arrive Complete 11/08/2024 16:05:06 11/08/2024 16:05:06 11/08/2024 16:05:06 Document Home Meds Request 11/08/2024 16:05:06 Triage Complete 11/08/2024 16:05:06 11/08/2024 16:15:34 11/08/2024 16:15:34 Bed Assign Complete 11/08/2024 16:15:51 11/08/2024 16:15:51 11/08/2024 16:15:51 Dr Exam Complete 11/08/2024 16:15:51 11/08/2024 16:18:52 11/08/2024 16:18:52 RN Exam Complete 11/08/2024 16:15:51 11/08/2024 16:32:18 11/08/2024 16:32:18 Registration Complete 11/08/2024 16:18:52 11/08/2024 16:55:15 11/08/2024 16:55:15 Dr Exam Complete 11/08/2024 16:24:55 11/08/2024 16:24:55 11/08/2024 16:24:55 Pending Labs Complete 11/08/2024 16:35:29 11/08/2024 16:55:49 11/08/2024 17:23:09 Lab Complete 11/08/2024 16:35:29 11/08/2024 17:23:09 Urine Collect Complete 11/08/2024 16:35:29 11/08/2024 17:08:28 US Complete 11/08/2024 16:35:29 11/08/2024 17:27:19 11/08/2024 18:11:55 Meds Admin Complete 11/08/2024 16:36:27 11/08/2024 17:04:48 Reg Complete Request 11/08/2024 16:55:15 Reg Bed Request Complete 11/08/2024 16:55:15 11/08/2024 16:55:15 11/08/2024 16:55:15 Pending Labs Complete 11/08/2024 16:55:17 11/08/2024 16:55:17 11/08/2024 17:23:09 Lab Complete 11/08/2024 16:55:17 11/08/2024 16:55:17 11/08/2024 17:23:09 Pending Labs Inlab 11/08/2024 16:56:13 11/08/2024 16:56:13 Lab Inlab 11/08/2024 16:56:13 11/08/2024 16:56:13 US Complete 11/08/2024 17:24:30 11/08/2024 17:27:08 11/08/2024 18:14:34 Discharge Complete 11/08/2024 18:16:25 11/08/2024 18:27:10 11/08/2024 18:27:10 Pending Labs Complete 11/08/2024 18:21:27 11/08/2024 18:21:27 11/08/2024 18:21:27 Transfer Complete 11/08/2024 18:27:10 11/08/2024 18:27:10 11/08/2024 18:27:10 ADDR[place]: [address] [place] [id number] PHYS DOC NOTES: MEDICAL INFORMATION: Prescriptions Given: Medications to Continue with No Changes Other Medications brompheniramine/dextromet horphan/PSE (Bromfed DM oral syrup) 5 Milliliter By Mouth 4 times a day as needed for cold symptoms. Refills: 0. cetirizine (cetirizine 5 mg oral tablet) 2 Tablets By Mouth every day. clonidine (cloNIDine 0.1 mg tab) 1 Tablets By Mouth every day. ethinyl estradiol-norethindrone (Junel Fe 08/22 oral tablet) 28 EA, TAKE 1 TABLET BY MOUTH EVERY DAY. fluoxetine (FLUoxetine 40 mg Cap) lurasidone (lurasidone 60 mg oral tablet) 30 EA, TAKE 1 TABLET BY ORAL ROUTE 1 TIME PER DAY WITH FOOD (AT LEAST 350 CALORIES). melatonin ondansetron (Zofran ODT 4 mg Tab-Dis) 1 Tablets By Mouth every 8 hours as needed Nausea/Vomiting. Refills: 0. ondansetron (Zofran ODT 4 mg Tab-Dis) 1 Tablets By Mouth every 8 hours as needed Nausea/Vomiting. Refills: 0. pantoprazole (Protonix 40 mg tablet) promethazine (promethazine 12.5 mg oral tablet) 1 Tablets By Mouth every 4 hours. Refills: 0. PATIENT EDUCATION INFORMATION: Instructions: Nausea and Vomiting, Adult; Abdominal Pain During Follow up: With: Address: When: [facility], [address] [place] [address] , [place] [address] Business (1) In 3 days 11/11/2024 With: Address: When: Fredi Ellington [address] [facility], [place] [address] Business (1) In 3 days DIAGNOSIS: Abdominal pain in ; Headache; Nausea & vomiting; Unspecified abdominal pain Normal [facility] ED Patient Summaryon 025 ED Patient Summary ED Patient Summary [address] [address] Patient Discharge Instructions Person Information Name: ROSE MARY SCHNEIDER Age: 18 Years Arrival Date: 11/08/2024 16:05:06 Discharge Diagnosis: Abdominal pain in ; Headache; Nausea & vomiting; Unspecified abdominal pain Primary Care Physician: Fredi Ellington MD Provider Information Primary Provider: Radha Whipple DO Advanced Shop Superintendent:Pablo Fu PA-C. The exam and treatment you received in the Emergency Department were for an urgent problem and are not intended as complete care. It is important that you follow up with a doctor, nurse practitioner, or physician???s financial planning assistant for ongoing care. If your symptoms become worse or you do not improve as expected and you are unable to reach your usual health care provider, you should return to the Emergency Department. We are available 24 hours a day. ROSE MARY SCHNEIDER has been given the following list of patient education materials, prescriptions and follow-up instructions: Follow-up Instructions: With: Address: When: [facility], [address] [place] [address] [place] [address] Keek (1) In 3 days 11/11/2024 With: Address: When: Fredi Ellington [address] [facility], [address] [place] [id number] Business (1) In 3 days In the event that this physician does not participate in your insurance network, please consult with your insurance company to find a nearby participating provider. Patient Education Materials: Nausea and Vomiting, Adult; Abdominal Pain During A MESSAGE TO ALL PATIENTS REGARDING OPIOIDS PRESCRIPTION OPIOIDS: WHAT YOU NEED TO KNOW Prescription opioids can be used to help relieve [id number] pain and are often prescribed following a [...] as well, even when taken as directed: ??? Tolerance???meaning you might need to take more of the medication for the same pain relief ??? Physical dependence???meaning you have symptoms of withdrawal when a medication is stopped ??? Increased sensitivity to pain ??? Constipation ??? Nausea, vomiting, and dry mouth ??? Sleepiness and dizziness ??? Confusion ??? Depression ??? Low levels of testosterone that can result in lower sex drive, energy, and strength ??? Itching and sweating RISKS ARE GREATER WITH: ??? History of drug misuse, substance use disorder, or overdose ??? Mental health conditions (such as depression or anxiety) ??? Sleep apnea ??? Older age (65 years and older) ??? Avoid alcohol while taking prescription opioids. Also, unless specifically advised by your health care provider, medications to avoid include: ??? Benzodiazepines (such as Xanax or Valium) ??? Muscle relaxants (such as Soma or Flexeril) ??? Hypnotics (such as Ambien or Lunesta) ??? Other prescription opioids KNOW YOUR OPTIONS Talk to your health care provider about ways to manage your pain that don???t involve prescription opioids. Some of these options may actually work better and have fewer risks and side effects. Options may include: ??? Pain relievers such as acetaminophen, ibuprofen, and naproxen ??? Some medication that are also used for depression or seizures ??? Physical therapy and exercise ??? Cognitive behavioral therapy, a psychological, goal-directed approach, in which patients learn how to modify physical, behavioral, and emotional triggers of pain and stress. IF YOU ARE PRESCRIBED OPIOIDS FOR PAIN: ??? Never take opioids in greater amounts or more often than prescribed. ??? Follow up with your primary health care provider. o Work together to create a plan on how to manage your pain. o Talk about ways to help manage your pain that don???t involve prescription opioids. o Talk about any and all concerns and side effects. ??? Help prevent misuse and abuse o Never sell or share prescription opioids. o Never use another person???s prescription opioids. ??? Store prescription opioids in a secure place and out of reach of others (this may include visitors, children, friends, and family). ??? Safely dispose of unused prescription opioids: Find your community drug take-back program or your pharmacy mail-back program, or flush them down the toilet, following guidance from (more content not included)... Normal [facility] Extra Blueon 11-08-2024 Tube Collected Plasma Yes Invalid Interpretation Code [facility] Comment on above: Performed By: #### 1 [id number] #### [facility] [address] [place] [address] HEMATOLOGYOrdered By: SYSTEM SYSTEM on 11-08-2024 Basophils/100 WBC (Bld) 0.4 % Normal 0.0 - 2.0 % [facility] Basophils/Leukocytes Auto (Bld) [Pure # fraction] 0.0 E9/L Normal 0.0 - 0.2 E9/L [facility] Eosinophils (Bld) [#/Vol] 0.1 E9/L Normal 0.0 - 0.5 E9/L [facility] Eosinophils/100 WBC (Bld) 1.8 % Normal 0.0 - 8.0 % [facility] Erythrocyte distribution width (RBC) [Ratio] 14.1 % Normal 10.9 - 14.2 % [facility] Hematocrit (Bld) [Volume fraction] 33.2 % Low 34.0 - 46.0 % [facility] Hemoglobin (Bld) [Mass/Vol] 11.6 g/dL Low 12.0 - 16.0 gm/dL [facility] Lymphocytes (Bld) [#/Vol] 1.8 E9/L Normal 1.0 - 4.0 E9/L [facility] Lymphocytes/100 WBC (Bld) 21.6 % Normal 14.0 - 50.0 % [facility] MCH (RBC) [Entitic mass] 29.0 pg Normal 27.0 - 34.0 pg [facility] MCHC (RBC) [Mass/Vol] 35.0 g/dL Normal 31.4 - 36.0 gm/dL [facility] MCV (RBC) [Entitic vol] 82.8 fL Normal 80.0 - 100.0 fL [facility] Monocytes (Bld) [#/Vol] 0.5 E9/L Normal 0.2 - 1.0 E9/L [facility] Monocytes/100 WBC (Bld) 6.3 % Normal 4.0 - 14.0 % [facility] Neutrophils (Bld) [#/Vol] 5.9 E9/L Normal 2.0 - 7.5 E9/L [facility] Neutrophils/100 WBC (Bld) 69.9 % Normal 36.0 - 75.0 % [facility] Platelet 354.0 E9/L Normal 150.0 - 500.0 E9/L [facility] Platelet mean volume (Bld) [Entitic vol] 7.9 fL Normal 6.4 - 10.8 fL [facility] RBC (Bld) [#/Vol] 4.0 E12/L Low 4.3 - 5.9 E12/L [facility] WBC corrected for nucl RBC Auto (Bld) [#/Vol] 8.4 E9/L Normal 4.0 - 11.0 E9/L [facility] Hep Func Panelon 11-08-2024 Albumin [Mass/Vol] 3.2 g/dL Low 3.3-5.0 [facility] Comment on above: Performed By: #### 2 [id number] #### [facility] [address] [place] [address] Albumin/Globulin (S) [Mass conc ratio] 0.9 Low 1.1-2.2 [facility] Comment on above: Performed By: #### 2 [id number] #### [facility] [address] [place] [address] ALP [Catalytic activity/Vol] 50 Int._Unit/L Normal 21-98 [facility] Comment on above: Performed By: #### 2 [id number] #### [facility] [address] [place] [address] ALT No additional P-5'-P [Catalytic activity/Vol] 7 Int._Unit/L Normal 6-46 [facility] Comment on above: Performed By: #### 2 [id number] #### [facility] [address] [place] [address] AST [Catalytic activity/Vol] 10 Int._Unit/L Normal 5-43 [facility] Comment on above: Performed By: #### 2 [id number] #### [facility] [address] [place] [address] Bilirubin [Mass/Vol] 0.2 mg/dL Normal 0.0-1.1 [facility] Comment on above: Performed By: #### 2 [id number] #### [facility] [address] [place] [address] Bilirubin.direct [Mass/Vol] 0.0 mg/dL Normal 0.0-0.4 [facility] Comment on above: Performed By: #### 2 [id number] #### [facility] [address] [place] [address] Bilirubin.indirect [Mass or moles/Vol] 0.2 mg/dL Normal 0.1-0.9 [facility] Comment on above: Performed By: #### 2 [id number] #### [facility] [address] [place] [address] Globulin (S) [Mass/Vol] 3.5 g/dL Normal 1.4-4.0 [facility] Comment on above: Performed By: #### 2 [id number] #### [facility] [address] [place] [address] Protein [Mass/Vol] 6.7 g/dL Normal 6.0-7.8 [facility] Comment on above: Performed By: #### 2 [id number] #### [facility] [address] [place] [address] Lipase Levelon 11-08-2024 Lipase [Catalytic activity/Vol] 29 U/L Normal 13-58 [facility] Comment on above: Performed By: #### 2 [id number] #### [facility] [address] [place] [address] SEROLOGYOrdered By: Susanna Daniel on 11-08-2024 HCG.beta subunit (U) [Moles/Vol] Positive (11/08/24 4:43 PM) Normal [facility] Man Sero U BetaHcg Qualon 11-08-2024 HCG.beta subunit (U) [Moles/Vol] Positive Normal [facility] Comment on above: Performed By: #### 2 [id number] #### [facility] [address] [place] [address] UA with Cult [employer]flxon 11-09-19 25 Bilirubin Ql (U) Negative Normal Negative [facility] Comment on above: Performed By: #### 4 [id number] #### [facility] [address] [place] [address] Clarity (U) Clear Normal Clear [facility] Comment on above: Performed By: #### 4 [id number] #### [facility] [address] [place] [address] Color (U) Light-Yellow Normal Yellow [facility] Comment on above: Result Comment: Micr oscopic readings are only performed on those samples that meet specific criteria set forth by [facility]. Performed By: #### 4 [id number] #### [facility] [address] [place] [address] Glucose Ql (U) Negative Normal Negative [facility] Comment on above: Performed By: #### 4 [id number] #### [facility] [address] [place] [address] Hemoglobin Auto test strip (U) [Mass/Vol] Negative Normal Negative [facility] Comment on above: Performed By: #### 4 [id number] #### [facility] [address] [place] [address] Ketones Auto test strip Ql (U) Negative Normal Negative [facility] Comment on above: Performed By: #### 4 [id number] #### [facility] [address] [place] [address] Leukocyte esterase Auto test strip Ql (U) Negative Normal Negative [facility] Comment on above: Performed By: #### 4 [id number] #### [facility] [address] [place] [address] Nitrite Auto test strip Ql (U) Negative Normal Negative [facility] Comment on above: Performed By: #### 4 [id number] #### [facility] [address] [place] [address] pH (U) 7.5 [pH] Invalid Interpretation Code 5.0-9.0 [facility] Comment on above: Performed By: #### 4 [id number] #### [facility] [address] [place] [address] Protein Ql (U) Negative Normal Negative [facility] Comment on above: Performed By: #### 4 [id number] #### [facility] [address] [place] [address] Specific gravity (U) [Rel density] 1.010 Invalid Interpretation Code 1.005-1.03 0 [facility] Comment on above: Performed By: #### 4 [id number] #### [facility] [address] [place] [address] Urobilinogen (U) [Mass/Vol] Negative Normal Negative [facility] Comment on above: Performed By: #### 4 [id number] #### [facility] [address] [place] [address] Type of Urine collection method Clean Catch Normal [facility] Comment on above: Performed By: #### 4 [id number] #### [facility] [address] [place] [address] URINALYSISOrdered By: SYSTEM SYSTEM on 11-08-2024 Bilirubin Ql (U) Negative Normal Negativemg /dL [facility] UA Auto SS Clarity (U) Clear (11/08/24 4:43 PM) Normal Clear [facility] UA Auto SS Color (U) Light-Yellow 1 (11/08/24 4:43 PM) Normal Yellow [facility] UA Auto SS Comment on above: Interpretive Data: M icroscopic readings are only performed on those samples that meet specific criteria set forth by [facility]. Glucose Ql (U) Negative Normal Negativemg /dL [facility] UA Auto SS Hemoglobin Auto test strip (U) [Mass/Vol] Negative Normal Negativemg /dL [facility] UA Auto SS Ketones Auto test strip Ql (U) Negative Normal Negativemg /dL [facility] UA Auto SS Leukocyte esterase Auto test strip Ql (U) Negative Normal NegativeLe u/uL [facility] UA Auto SS Nitrite Auto test strip Ql (U) Negative Normal Negativemg /dL [facility] UA Auto SS pH (U) 7.5 *NA* (11/08/24 4:43 PM) Invalid Interpretation Code 5.0 - 9.0 [facility] UA Auto SS Protein Ql (U) Negative Normal Negativemg /dL [facility] UA Auto SS Specific gravity (U) [Rel density] 1.010 *NA* (11/08/24 4:43 PM) Invalid Interpretation Code 1.005 - 1.030 [facility] UA Auto SS Urobilinogen (U) [Mass/Vol] Negative Normal Negativemg /dL [facility] UA Auto SS URINALYSISOrdered By: Pablo Fu on 11-08-2024 UA Spec Desc Clean Catch (11/08/24 4:43 PM) Normal [facility] UA Auto SS eGFRon 11-08-2024 eGFR 132 mL/min/1.73 m2 Normal >=59 [facility] Comment on above: Performed By: #### 1 [id number] #### [facility] [address] [place] [address] RECURRENT VAGINITIS (HTRX)on 11-04-2024 ATOPOBIUM VAGINAE 22.789 Abnormal [facility] ATOPOBIUM VAGINAE Detected Abnormal [facility] BVAB 2,3 (BACTERIAL VAGINOSIS ASSOCIATED BACTERIA 2, 3); MOBILUNCUS SPP 0 [facility] BVAB 2,3 (BACTERIAL VAGINOSIS ASSOCIATED BACTERIA 2, 3); MOBILUNCUS SPP Not detected [facility] ANITA ALBICANS, PARAPSILOSIS, TROPICALIS 0 [facility] ANITA ALBICANS, PARAPSILOSIS, TROPICALIS Not detected [facility] ANITA GLABRATA 0 [facility] ANITA GLABRATA Not detected [facility] ANITA KRUSEI 0 [facility] ANITA KRUSEI Not detected [facility] CHLAMYDIA TRACHOMATIS 0 [facility] CHLAMYDIA TRACHOMATIS Not detected [facility] ERMB, C; MEFA 23.693 Abnormal [facility] ERMB, C; MEFA Detected Abnormal [facility] GARDNERELLA VAGINALIS 20.707 Abnormal [facility] GARDNERELLA VAGINALIS Detected Abnormal [facility] Interpretation and review of laboratory results Abnormal [facility] MEGASPHAERA (TYPES 1, 2) 0 [facility] MEGASPHAERA (TYPES 1, 2) Not detected [facility] MYCOPLASMA GENITALIUM 0 [facility] MYCOPLASMA GENITALIUM Not detected [facility] NEISSERIA GONORRHOEAE 0 [facility] NEISSERIA GONORRHOEAE Not detected [facility] TET B, TET M 22.818 Abnormal [facility] TET B, TET M Detected Abnormal [facility] TRICHOMONAS VAGINALIS 0 [facility] TRICHOMONAS VAGINALIS Not detected [facility] US OB 14+ WEEKS ANATOMY SCAN on 11-02-2024 US OB 14+ WEEKS ANATOMY SCAN EXAM: US OB 14+ WEEKS ANATOMY SCAN HISTORY: anatomy. JESSICA 03/30/2025. G1. COMPARISON: U/S Ob 08/25/2024. TECHNIQUE: Two-dimensional transabdominal grayscale ultrasound imaging of the pelvis was performed. FINDINGS: This is a technically difficult study due to maternal body habitus. Gestation: Single Presentation: Variable Cardiac Activity: 148 beats per minute Placental Location: Posterior with a 2.7 x 1.4 x 2.6 cm subchorionic hemorrhage Distance from Placental Tip to Cervix: 3.4 cm Cervical Length: 5.5 cm Amniotic Fluid Index: Not measured, appears visually adequate MEASUREMENTS: BPD: 4.9 cm EGA: 20 weeks 5 days HC: 18.8 cm EGA: 21 weeks 1 days AC: 15.9 cm EGA: 21 weeks 0 days FL: 3.5 cm EGA: 21 weeks 1 days HC/AC Ratio: 1.18 (1.06-1.25) Gestational age by today's ultrasound is 21 weeks 0 days (+/- ten days gestation). Estimated Weight: 397 grams, +/- 60 grams ( 0 lb 14 oz). Weight Percentile for gestational age: 12% ANATOMY C-Spine: Unremarkable T-Spine: Unremarkable L-Spine: Unremarkable Sacrum: Unremarkable Four Chamber Heart: Unremarkable LVOT: Not visualized RVOT: Not visualized Stomach: Unremarkable Kidneys: Unremarkable Bladder: Unremarkable Diaphragm: Unremarkable Cord insertion: Suboptimally visualized Cord vessels: Unable to determine Lateral Ventricles: Unremarkable Cerebellum: Unremarkable Cisterna Magna: Unremarkable Posterior Fossa: Unremarkable Right Femur: Unremarkable Left Femur: Unremarkable Right Tib/Fib: Unremarkable Left Tib/Fib: Unremarkable Right Rad/Ulnar: Unremarkable Left Rad/Ulnar: Unremarkable Right Humerus: Unremarkable Left Humerus: Unremarkable Nose/Lips: Unremarkable Profile: Not visualized Orbits: Suboptimally visualized IMPRESSION: 1. Single, live intrauterine gestation 21 weeks, 6 days by LMP. Today's ultrasound measurements correlate with a gestational age of 21 weeks 0 days. 2. Nonvisualization of the LVOT, RVOT and profile. Suboptimal visualization of the orbits and cord insertion. A three-vessel cord is not confidently visualized on today's exam. 3. Small subchorionic hemorrhage. Normal Not Available Comment on above: Order Comment: US OB ANATOMY SINGLE W US OB CERVICAL LENGTH Estimated Date of Delivery: 03/30/25 Gestational Age as of 11/02/2024: 18w6d Urinalysis macro (dipstick) panel (U)on 11-02-2024 Bilirubin, UA Negative Negative - 4(70) +++ mg/dL [facility] Blood, UA Negative Negative - 50 Balwinder/mcL [facility] Clarity, UA Clear [facility] Color, UA Yellow [facility] Glucose, UA Negative Negative - 1999(110) ++++ mg/dL [facility] Interpretation and review of laboratory results Abnormal [facility] Ketones, UA Positive Negative - 160(16) ++++ mg/dL [facility] Comment on above: 15mg/dL Leukocytes, UA Positive Negative - 500+++ Uzair/mcL [facility] Comment on above: small Nitrite, UA Negative Negative - Positive [facility] pH, UA 7 5 - 9 [facility] Protein, UA Negative Negative - 1999(20) ++++ mg/dL [facility] Spec Grav, UA 1.02 1 - 1.03 [facility] Urobilinogen, UA 0.2 0.2 - 12 mg/dL [facility] Urinalysis macro (dipstick) panel (U)on 09-26-2024 Bilirubin, UA Positive Negative - 4(70) +++ mg/dL [facility] Comment on above: small Blood, UA Negative Negative - 50 Balwinder/mcL [facility] Clarity, UA Clear [facility] Color, UA Hansa [facility] Glucose, UA Positive Negative - 2000(110) ++++ mg/dL [facility] Comment on above: 100 Interpretation and review of laboratory results Abnormal [facility] Ketones, UA Negative Negative - 160(16) ++++ mg/dL [facility] Leukocytes, UA Negative Negative - 500+++ Uzair/mcL [facility] Nitrite, UA Negative Negative - Positive [facility] pH, UA 5.5 5 - 9 [facility] Protein, UA Positive Negative - 2000(20) ++++ mg/dL [facility] Comment on above: 100 Spec Grav, UA 1.03 1 - 1.03 [facility] Urobilinogen, UA 0.2 0.2 - 12 mg/dL [facility] Alanine aminotransferase [En zymatic activity/volume] in Serum or PlasmaOrdered By: Jenn Sapp on 09-09-2024 ALT [Catalytic activity/Vol] Alanine aminotransferase [Enzymatic activity/volume] in Serum or Plasma 7-[address] [facility] Albumin [Mass/volume] in Ser um or Plasma by Bromocresol green (BCG) dye binding methoOrdered By: Jenn Sapp on 09-09-2024 Albumin BCG dye [Mass/Vol] Albumin [Mass/volume] in Serum or Plasma by Bromocresol green (BCG) dye binding metho Low 3.5-5.[address] [facility] Alkaline phosphatase [Enzyma tic activity/volume] in Serum or PlasmaOrdered By: Jenn Sapp on 09-09-2024 ALP [Catalytic activity/Vol] Alkaline phosphatase [Enzymatic activity/volume] in Serum or Plasma 34-[address] [facility] Aspartate aminotransferase [ Enzymatic activity/volume] in Serum or PlasmaOrdered By: Jenn Sapp on 09-09-2024 AST [Catalytic activity/Vol] Aspartate aminotransferase [Enzymatic activity/volume] in Serum or Plasma 13-[address] [facility] Basophils Auto (Bld) [#/Vol] Ordered By: Jenn Sapp on 09-09-2024 Basophils (Bld) [#/Vol] Automated basophil count 0.0-0.[address] [facility] Basophils/100 WBC Auto (Bld) Ordered By: Jenn Sapp on 09-09-2024 Basophils/100 WBC (Bld) Automated basophil % . [facility] Bilirubin.total [Mass/volume ] in Serum or PlasmaOrdered By: Jenn Sapp on 09-09-2024 Bilirubin [Mass/Vol] Bilirubin.total [Mass/volume] in Serum or Plasma 0.3-1.[address] [facility] Calcium [Mass/volume] in Ser um or PlasmaOrdered By: Jenn Sapp on 09-09-2024 Calcium [Mass/Vol] Calcium [Mass/volume ] in Serum or Plasma Low 8.6-10.[address] [facility] Carbon dioxide, total [Moles /volume] in Serum or PlasmaOrdered By: Jenn Sapp on 09-09-2024 CO2 [Moles/Vol] Carbon dioxide, tota l [Moles/volume] in Serum or Plasma 21.0-31.[address] [facility] Chloride [Moles/volume] in S wesly or PlasmaOrdered By: Jenn Sapp on 09-09-2024 Chloride [Moles/Vol] Chloride [Moles/vol ume] in Serum or Plasma 98-[address] [facility] Complete Blood Count Auto Di ffon 09-09-2024 Basophils (Bld) [#/Vol] 0.1 10*3/uL Normal 0.0-0.2 [facility] Comment on above: Result Comment: PERF ORMED BY: [facility] [address] [place] [address] PATHOLOGIST [employer] BRICK ALINA VELASQUEZ M.D. Performed By: #### C BC, CMP, CK, HS TROP #### [facility] [address] Basophils/100 WBC (Bld) 0.8 % Normal . [facility] Comment on above: Performed By: #### C BC, CMP, CK, HS TROP #### [address] Eosinophils (Bld) [#/Vol] 0.2 10*3/uL Normal 0.0-0.45 [facility] Comment on above: Performed By: #### C BC, CMP, CK, HS TROP #### [address] Eosinophils/100 WBC (Bld) 3.0 % Normal . [facility] Comment on above: Performed By: #### C BC, CMP, CK, HS TROP #### [address] Erythrocyte distribution width (RBC) [Ratio] 15.8 % High 11.9-15.3 [facility] Comment on above: Performed By: #### C BC, CMP, CK, HS TROP #### [address] Hematocrit (Bld) [Volume fraction] 32.9 % Low 34.0-46.4 [facility] Comment on above: Performed By: #### C BC, CMP, CK, HS TROP #### [address] Hemoglobin (Bld) [Mass/Vol] 11.2 g/dL Low 11.8-15.4 [facility] Comment on above: Performed By: #### C BC, CMP, CK, HS TROP #### [place] [address] [place] Lymphocytes (Bld) [#/Vol] 1.6 10*3/uL Normal 1.00-4.8 [facility] Comment on above: Performed By: #### C BC, CMP, CK, HS TROP #### [place] [address] [place] Lymphocytes/100 WBC (Bld) 22.2 % Normal . [facility] Comment on above: Performed By: #### C BC, CMP, CK, HS TROP #### [address] MCH (RBC) [Entitic mass] 28.3 pg Normal 24.7-34.3 [facility] Comment on above: Performed By: #### C BC, CMP, CK, HS TROP #### [address] MCV (RBC) [Entitic vol] 83.3 fL Normal 80-100 [facility] Comment on above: Performed By: #### C BC, CMP, CK, HS TROP #### [address] Mean Corpuscular HGB Conc 33.9 g/dL Normal 32.0-35.0 [facility] Comment on above: Performed By: #### C BC, CMP, CK, HS TROP #### [address] Monocytes (Bld) [#/Vol] 0.4 10*3/uL Normal 0.0-0.8 [facility] Comment on above: Performed By: #### C BC, CMP, CK, HS TROP #### [address] Monocytes/100 WBC (Bld) 21.77 % High 0.00-20.00 [facility] Comment on above: Result Comment: For adults in ED, MDW > 20.0 may be associated with a higher risk of sepsis during the first 12 hrs of hospital admission Performed By: #### C BC, CMP, CK, HS TROP #### [address] Monocytes/100 WBC (Bld) 5.8 % Normal . [facility] Comment on above: Performed By: #### C BC, CMP, CK, HS TROP #### [place] [address] [place] Neutrophils (Bld) [#/Vol] 4.8 10*3/uL Normal 1.8-7.7 [facility] Comment on above: Performed By: #### C BC, CMP, CK, HS TROP #### [place] [address] [place] Neutrophils/100 WBC (Bld) 68.2 % Normal . [facility] Comment on above: Performed By: #### C BC, CMP, CK, HS TROP #### [address] NRBC% 0.1 /100{WBC} Normal 0-0.5 [facility] Comment on above: Performed By: #### C BC, CMP, CK, HS TROP #### [address] Platelet mean volume (Bld) [Entitic vol] 7.6 fL Normal 6.3-10.7 [facility] Comment on above: Performed By: #### C BC, CMP, CK, HS TROP #### [address] Platelets (Bld) [#/Vol] 336 10*3/uL Normal 150-450 [facility] Comment on above: Performed By: #### C BC, CMP, CK, HS TROP #### [address] RBC (Bld) [#/Vol] 3.95 10*6/uL Normal 3.60-5.00 [facility] Comment on above: Performed By: #### C BC, CMP, CK, HS TROP #### [address] WBC (Bld) [#/Vol] 7.1 10*3/uL Normal 3.8-11.6 [facility] Comment on above: Performed By: #### C BC, CMP, CK, HS TROP #### [address] Comprehensive Metabolic Pane mazin 09-09-2024 Albumin [Mass/Vol] 3.4 g/dL Low 3.5-5.7 [facility] Comment on above: Performed By: #### C BC, CMP, CK, HS TROP #### [address] Albumin/Globulin [Mass ratio] 1.1 {ratio} Normal [facility] Comment on above: Performed By: #### C BC, CMP, CK, HS TROP #### [facility] [address] [place] [address] [place] ALP [Catalytic activity/Vol] 41 U/L Normal 34-104 [facility] Comment on above: Performed By: #### C BC, CMP, CK, HS TROP #### [facility] [address] ALT [Catalytic activity/Vol] 11 U/L Normal 7-52 [facility] Comment on above: Performed By: #### C BC, CMP, CK, HS TROP #### [address] Anion gap [Moles/Vol] 7.7 mmol/L Normal 6.0-15.0 [facility] Comment on above: Performed By: #### C BC, CMP, CK, HS TROP #### [address] AST [Catalytic activity/Vol] 17 U/L Normal 13-39 [facility] Comment on above: Performed By: #### C BC, CMP, CK, HS TROP #### [place] [address] [place] Bilirubin [Mass/Vol] 0.3 mg/dL Normal 0.3-1.0 [facility] Comment on above: Performed By: #### C BC, CMP, CK, HS TROP #### [place] [address] [place] Calcium [Mass/Vol] 8.5 mg/dL Low 8.6-10.3 [facility] Comment on above: Performed By: #### C BC, CMP, CK, HS TROP #### [place] [address] [place] Chloride [Moles/Vol] 104 mmol/L Normal 98-107 [facility] Comment on above: Performed By: #### C BC, CMP, CK, HS TROP #### [place] [address] [place] CO2 [Moles/Vol] 26.0 mmol/L Normal 21.0-31.0 [facility] Comment on above: Performed By: #### C BC, CMP, CK, HS TROP #### [address] Creatinine [Mass/Vol] 0.60 mg/dL Normal 0.60-1.20 [facility] Comment on above: Performed By: #### C BC, CMP, CK, HS TROP #### [place] [address] [place] Creatinine Clr Calc Pharmacy 197.99 Normal [facility] Comment on above: Result Comment: PERF ORMED BY: [place] [address] PATHOLOGIST [employer] BRICK ALINA VELASQUEZ M.D. Performed By: #### C BC, CMP, CK, HS TROP #### [address] GFR/1.73 sq M.predicted MDRD (S/P/Bld) [Vol rate/Area] mL/min/{1.73_m2} Normal [facility] Comment on above: Performed By: #### C BC, CMP, CK, HS TROP #### [address] Globulin (S) [Mass/Vol] 3.2 g/dL Normal [facility] Comment on above: Performed By: #### C BC, CMP, CK, HS TROP #### [address] Glucose [Mass/Vol] 96 mg/dL Normal 70-100 [facility] Comment on above: Result Comment: [place] Glucose Reference Range is dependent on time and content of last meal. Glucose of more than 200 mg/dL in a nonstressed, ambulatory subject supports the diagnosis of Diabetes Mellitus. ADA recommended reference range Performed By: #### C BC, CMP, CK, HS TROP #### [address] Potassium [Moles/Vol] 3.7 mmol/L Normal 3.5-5.1 [facility] Comment on above: Performed By: #### C BC, CMP, CK, HS TROP #### [facility] [address] [place] [address] [place] Protein [Mass/Vol] 6.6 g/dL Normal 6.4-8.9 [facility] Comment on above: Performed By: #### C BC, CMP, CK, HS TROP #### [facility] [address] [place] [address] [place] Sodium [Moles/Vol] 134 mmol/L Low 136-145 [facility] Comment on above: Performed By: #### C BC, CMP, CK, HS TROP #### [facility] [address] [place] [address] [place] Urea nitrogen [Mass/Vol] 9 mg/dL Normal 7-25 [facility] Comment on above: Performed By: #### C BC, CMP, CK, HS TROP #### [facility] [address] [place] [id number] [place] Creatine Kinaseon 09-09-2024 CK [Catalytic activity/Vol] 26 U/L Low 30-223 [facility] Comment on above: Result Comment: PERF ORMED BY: [place] [address] PATHOLOGIST CH[employer] BU[employer] BRICK ALINA VELASQUEZ M.D. Performed By: #### C BC, CMP, CK, HS TROP #### [address] [address] [facility] Creatine kinase [Enzymatic a ctivity/volume] in Serum or PlasmaOrdered By: Jenn Sapp on 09-09-2024 CK [Catalytic activity/Vol] Creatine kinase [Enzymatic activity/volume] in Serum or Plasma Low 30-[address] [facility] Creatinine [Mass/volume] in Serum or PlasmaOrdered By: Jenn Sapp on 09-09-2024 Creatinine [Mass/Vol] Creatinine [Mass/v olume] in Serum or Plasma 0.60-1.[address] [facility] ECG 12 lead ECGon 09-09-2024 ECG 12 lead ECG [facility] Main [place] [address] [place] [address] Electrocardiograph Report Signed Patient: Rose Mary Schneider MR#: [id number] : 2005 Acct:[id number] Age/Sex: 18 / F ADM Date: 09/09/24 Loc: ER Room: Type: [facility] ER Attending Dr: Ordering Provider: Jenn Sapp DO Date of Service: 09/09/2402/24/1219 ECG/ECG 12 lead ECG: Syncope Copies to: Test Reason : Blood Pressure : 108/54 mmHG Vent. Rate : 82 BPM Atrial Rate : 82 BPM P-R Int : 130 ms QRS Dur : 88 ms QT Int : 372 ms P-R-T Axes : 72 90 54 degrees QTcB Int : 434 ms Normal sinus rhythm Rightward axis Borderline ECG When compared with ECG of 11-Mar-2023 07:05, No significant change was found Confirmed by JENN SAPP DO ([id number]) on 09/09/2024 4:32:05 PM Referred By: Electronically Signed By: JENN SAPP DO Transcribed By: [facility] Signed By Jenn Sapp DO 09/09 1632 Normal [facility] Eosinophils Auto (Bld) [#/Vo l]Ordered By: Jenn Sapp on 09-09-2024 Eosinophils (Bld) [#/Vol] Automated eosinophil count 0.0-0.[address] [facility] Eosinophils/100 WBC Auto (Bl d)Ordered By: Jenn Sapp on 09-09-2024 Eosinophils/100 WBC (Bld) Automated eosinophil % . [facility] Erythrocyte distribution wid th Auto (RBC) [Ratio]Ordered By: Jenn Sapp on 09-09-2024 Erythrocyte distribution width (RBC) [Ratio] Erythrocyte distribution width [Ratio] by Automated count High 11.9-15.[address] [facility] Globulin Calc (S) [Mass/Vol] Ordered By: Jenn Sapp on 09-09-2024 Globulin (S) [Mass/Vol] Serum globulin measurement by calculation (mass/volume) [facility] Glucose [Mass/volume] in Ser um or PlasmaOrdered By: Jenn Sapp on 09-09-2024 Glucose [Mass/Vol] Glucose [Mass/volume ] in Serum or Plasma 70-[address] [facility] Comment on above: ADA recommended refe rence rangeRandom Glucose Reference Range is dependent on time and content of last meal. Glucose of more than 200 mg/dL in a nonstressed, ambulatory subject supports the diagnosis of Diabetes Mellitus. Hematocrit Auto (Bld) [Volum e fraction]Ordered By: Jenn Sapp on 09-09-2024 Hematocrit (Bld) [Volume fraction] Hematocrit [Volume Fraction] of Blood by Automated count Low 34.0-46.[address] [facility] Hemoglobin [Mass/volume] in BloodOrdered By: Jenn Sapp on 09-09-2024 Hemoglobin (Bld) [Mass/Vol] Hemoglobin [Mass/volume] in Blood Low 11.8-15.[address] [facility] Leukocytes [#/volume] correc gamaliel for nucleated erythrocytes in Blood by Automated counOrdered By: Jenn Sapp on 09-09-2024 WBC corrected for nucl RBC Auto (Bld) [#/Vol] Leukocytes [#/volume] corrected for nucleated erythrocytes in Blood by Automated coun 3.8-11.[address] [facility] Lymphocytes Auto (Bld) [#/Vo l]Ordered By: Jenn Sapp on 09-09-2024 Lymphocytes (Bld) [#/Vol] Lymphocytes [#/volume] in Blood by Automated count 1.00-4.[address] [facility] Lymphocytes/100 WBC Auto (Bl d)Ordered By: Jenn Sapp on 09-09-2024 Lymphocytes/100 WBC (Bld) Lymphocytes/100 leukocytes in Blood by Automated count . [facility] MCH Auto (RBC) [Entitic mass ]Ordered By: Jenn Sapp on 09-09-2024 MCH (RBC) [Entitic mass] MCH [Entitic mass] by Automated count 24.7-34.[address] [facility] MCHC Auto (RBC) [Mass/Vol]Or dered By: Jenn Sapp on 09-09-2024 MCHC (RBC) [Mass/Vol] MCHC [Mass/volume] by Automated count 32.0-35.[address] [facility] MCV Auto (RBC) [Entitic vol] Ordered By: Jenn Sapp on 09-09-2024 MCV (RBC) [Entitic vol] MCV [Entitic vol ume] by Automated count 80-[address] [facility] Monocyte distribution width [Entitic volume] in Blood by AutomatedOrdered By: Jenn Sapp on 09-09-2024 Monocyte distribution width Auto (Bld) [Entitic vol] Monocyte distribution width [Entitic volume] in Blood by Automated High 0.00-20.[address] [facility] Comment on above: For adults in ED, MD W > 20.0 may be associated with a higher risk of sepsis during the first 12 hrs of hospital admission Monocytes Auto (Bld) [#/Vol] Ordered By: Jenn Sapp on 09-09-2024 Monocytes (Bld) [#/Vol] Automated blood monocyte count 0.0-0.[address] [facility] Monocytes/100 WBC Auto (Bld) Ordered By: Jenn Sapp on 09-09-2024 Monocytes/100 WBC (Bld) Automated monocyte % . [facility] Neutrophils Auto (Bld) [#/Vo l]Ordered By: Jenn Sapp on 09-09-2024 Neutrophils (Bld) [#/Vol] Neutrophils [#/volume] in Blood by Automated count 1.8-7.[address] [facility] Neutrophils/100 WBC Auto (Bl d)Ordered By: Jenn Sapp on 09-09-2024 Neutrophils/100 WBC (Bld) Automated neutrophil % . [facility] No Panel InformationOrdered By: Jenn Sapp on 09-09-2024 Estimated GFR (CKD-EPI) > 60.0 mL/Min [facility] Creatinine Clearance (Chem 197.[address] [facility] Nucleated erythrocytes [Pres ence] in Blood by Automated countOrdered By: Jenn Sapp on 09-09-2024 Nucleated RBC Auto Ql (Bld) Nucleated erythrocytes [Presence] in Blood by Automated count 0-0.[address] [facility] Platelet mean volume Auto (B ld) [Entitic vol]Ordered By: Jenn Sapp on 09-09-2024 Platelet mean volume (Bld) [Entitic vol] Platelet mean volume [Entitic volume] in Blood by Automated count 6.3-10.[address] [facility] Platelets Auto (Bld) [#/Vol] Ordered By: Jenn Sapp on 09-09-2024 Platelets (Bld) [#/Vol] Platelets [#/vol ume] in Blood by Automated count 150-[address] [facility] Potassium [Moles/volume] in Serum or PlasmaOrdered By: Jenn Sapp on 02-07-2025 Potassium [Moles/Vol] Potassium [Moles/v olume] in Serum or Plasma 3.5-5.[address] [facility] Protein [Mass/volume] in Ser um or PlasmaOrdered By: Jenn Sapp on 09-09-2024 Protein [Mass/Vol] Protein [Mass/volume ] in Serum or Plasma 6.4-8.[address] [facility] RBC Auto (Bld) [#/Vol]Ordere d By: Jenn Sapp on 09-09-2024 RBC (Bld) [#/Vol] Erythrocytes [#/volu me] in Blood by Automated count 3.60-5.[address] [facility] Serum or plasma albumin/glob ulin mass ratioOrdered By: Jenn Sapp on 09-09-2024 Albumin/Globulin [Mass ratio] Serum or plasma albumin/globulin mass ratio [facility] Serum or plasma anion gap de terminationOrdered By: Jenn Sapp on 09-09-2024 Anion gap [Moles/Vol] Serum or plasma an ion gap determination 6.0-15.[address] [facility] Sodium [Moles/volume] in Ser um or PlasmaOrdered By: Jenn Sapp on 09-09-2024 Sodium [Moles/Vol] Sodium [Moles/volume ] in Serum or Plasma Low 136-[address] [facility] Troponin I High Sensitivityo n 09-09-2024 Troponin I High Sensitivity <3 Normal 0-15 [facility] Comment on above: Result Comment: The Troponin units of report have been changed to meet the Chest Pain Accreditation requirement, element EC5.M1l2. Troponin units are changed from pg/ml to ng/L. Also, the decimal is removed and results are in whole numbers. PERFORMED BY: [place] [address] PATHOLOGIST [employer] BRICK ALINA VELASQUEZ M.D. Performed By: #### C BC, CMP, CK, HS TROP #### [address] Troponin I.cardiac [Mass/vol ume] in Serum or Plasma by Detection limit <= 0.01 ng/Ordered By: Jenn Sapp on 09-09-2024 Troponin I.cardiac DL <= 0.01 ng/mL [Mass/Vol] Troponin I.cardiac [Mass/volume] in Serum or Plasma by Detection limit <= 0.01 ng/ 0-[address] [facility] Comment on above: The Troponin units o f report have been changed to meet the Chest Pain Accreditation requirement, element EC5.M1l2. Troponin units are changed from pg/ml to ng/L. Also, the decimal is removed and results are in whole numbers. Urea nitrogen [Mass/volume] in Serum or PlasmaOrdered By: Jenn Sapp on 09-09-2024 Urea nitrogen [Mass/Vol] Urea nitrogen [Mass/volume] in Serum or Plasma 02-[address] [facility] WBC Auto (Bld) [#/Vol]Ordere d By: Jenn Sapp on 09-09-2024 WBC (Bld) [#/Vol] Leukocytes [#/volume ] in Blood by Automated count 3.8-11.[address] [facility] BOX TESTon 08-31-2024 BOX TEST SENT OUT [facility] BOX1 [facility] BOX2 08/31/24 [facility] HCG ( test) Ql (U)o n 08-25-2024 Interpretation and review of laboratory results Abnormal [facility] Preg Test, Ur Positive Negative [facility] US OB TRANSVAGINALon 025 US OB TRANSVAGINAL TITLE OF EXAM: OB Ultrasound: REASON FOR EXAM: Dating. COMPARISON: None TECHNIQUE: Grayscale and M-mode Doppler imaging is performed. FINDINGS: Measurements: heart rate: 166 bpm Sac: 3.9 cm CRL: 2.0 cm GA for sonogram: 8.6 wk (07.9-09.3) Cervix Length: 3.7 cm JESSICA: 03/30/2025 Anatomy Observed: Gestational Sac: Visualized Yolk Sac: Visualized Pole: Visualized Cardiac Activity: Visualized 166 bpm Uterus: Normal Uterine Position: Anteverted, anteflexed Right Ovary: 3.5 x 2.3 x 2.4 cm Volume 10.4 cm Corpus luteal Left Ovary: 2.2 x 1.3 x 2.3 cm Volume 3.6 cc Normal Cervical Length: 3.7 cm Closed IMPRESSION: Single viable intrauterine gestation with an estimated ultrasound age of 8 weeks 4 days. Dictated and transcribed 08/26/24/dpd This report has been electronically signed and approved by the interpreting radiologist. Normal Not Available Comment on above: Order Comment: US OB TRANSVAGINAL No LMP recorded. Patient is . Urinalysis macro (dipstick) panel (U)on 08-25-2024 Bilirubin, UA Negative Negative - 4(70) +++ mg/dL [facility] Blood, UA Negative Negative - 50 Balwinder/mcL [facility] Clarity, UA Clear [facility] Color, UA Yellow [facility] Glucose, UA Negative Negative - 2000(110) ++++ mg/dL [facility] Interpretation and review of laboratory results Normal [facility] Ketones, UA Negative Negative - 160(16) ++++ mg/dL [facility] Leukocytes, UA Trace Negative - 500+++ Uzair/mcL [facility] Nitrite, UA Negative Negative - Positive [facility] pH, UA 7 5 - 9 [facility] Protein, UA Negative Negative - 2000(20) ++++ mg/dL [facility] Spec Grav, UA 1.025 1 - 1.03 [facility] Urobilinogen, UA 0.2 0.2 - 12 mg/dL [facility] ED Note-Physicianon 08-22-19 ED Note-Physician ED Note-Physician Basic Information Time Seen: Nickie MELÉNDEZ, Pablo Delaney. 08/21/2024 17:05 Chief Complaint per mom pt has had cough, congestion, nausea, vomitting. pt states she is 8 weeks . has a hx of blacking out . History of Present Illness Patient is a 18-year-old 8-week female that presents today for evaluation of her nausea, vomiting, cough, congestion. Patient states that she has known about 8 weeks and has had some nausea and vomiting which she has attributed to morning sickness. She has not seen RIB CHOPPER yet but is planning on doing so in the next couple of weeks. She has been started on Zofran for this but it does not really help. She also has some cough and congestion has been going on for the last couple of weeks. She did start taking Augmentin prescribed to her by her PCP for coverage of any type o possible pneumonia. She states that she has a history of blacking out but has not had any syncopal episodes recently. Denies any chest pain or shortness of breath. Denies any abdominal pain. Denies any vaginal bleeding or vaginal discharge. Review of Systems No other aggravating or relieving factors no other associated symptoms no other prior treatments or complaints. Family: Reviewed and noncontributory Social: lives at home Review of systems negative unless otherwise specified in the HPI. Physical Exam Vitals & Measurements T: 36.8 ???C(Oral) HR: 72(Monitored) RR: 16 BP: 147/82 SpO2: 100% HT: 170 cm WT: 111.6 kg BMI: 38.62 Nurse's notes and vital signs reviewed. General: Alert, no acute distress, patient resting comfortably Patient is not toxic or lethargic. Skin: Warm, intact, no pallor noted. There is no evidence of rash at this time. Head: Normocephalic, atraumatic Eye: Normal conjunctiva Ears, Nose, Throat: Moist mucous membranes. Mild posterior pharyngeal erythema but no exudate swelling shift or mass. No trisumus no stridor. Tympanic membranes unremarkable bilaterally no injection erythema no posterior effusions perforation or pus. Neck: No meningeal signs. Cardio: Regular Rate and Rhythm with normal peripheral perfusion Respiratory: No acute distress, no stridor, no retractions. CTA bilaterally. Abdomen: Soft, nontender, no masses detected. No rebound, guarding, or rigidity Neurological: Appropriate for age Psychiatric: Cooperative Procedure [x] The patient was diagnosed with upper respiratory infection and was not prescribed an antibiotic. [SATISFIES MIPS PERFORMANCE] [ ] The patient has competing comorbid condition within the last 12 months. The comorbid condition was [] (e.g., neutropenia, cystic fibrosis, chronic bronchitis, pulmonary edema, respiratory failure, rheumatoid lung disease). [MIPS PERFORMANCE EXCEPTION/EXCLUSION [ ] The patient is already on antibiotics, or has taken them within the last 30 days. [MIPS PERFORMANCE EXCEPTION/EXCLUSION] [ ] The patient had a competing diagnosis of [] (e.g. acute otitis media, chronic sinusitis, UTI, etc.) [MIPS PERFORMANCE EXCEPTION/EXCLUSION] [ ] The patient was diagnosed with upper respiratory infection and was prescribed or dispensed an antibiotic. [DOES NOT SATISFY MIPS PERFORMANCE] Medical Decision Making Patient is a 18-year-old 8-week female presents today for evaluation of her nausea, vomiting, cough, congestion. Has been on Zofran for her morning sickness for the last couple of weeks. Is waiting to see her RIB CHOPPER. Has also had cough and congestion has been going on for the last couple of weeks. Started taking Augmentin prescribed by her PCP. Denies any other systemic signs or symptoms. On exam the patient is afebrile nontoxic-appearing. She does have mild posterior pharyngeal erythema but no exudate, swelling, shift, or mass. Left TM has some mild injection but no pus or posterior effusion. Right TM unremarkable. CTA to bilateral lung lujan. RRR. Abdomen is soft and nontender. Labs are WNL. UA negative for UTI. Patient was negative for strep, COVID, flu. Patient was given a dose of promethazine and a liter of fluids here in the ED with improvement. She was able to pass p.o. challenge. Symptoms are likely secondary to morning sickness as well as viral URI with cough. She is already on antibiotics prescribed by another provider and will continue on these. She will be discharged home with promethazine as needed for her morning sickness. She will have close follow-up with her RIB CHOPPER as well as her PCP. We discussed if she has new or worsening symptoms she should promptly return to the ED for reevaluation. Return to ED precautions were reviewed with the patient at length. Assessment/Plan Nausea and vomiting in (O21.9: Vomiting of , unspecified) Viral URI with cough (J06.9: Acute upper respiratory infection, unspecified) Orders: promethazine, 12.5 mg = 1 tab(s), Oral, q4hr, # 20 tab(s), Refills(s) 0, Pharmacy: [facility]/pharmacy #[id number], 170, cm, 08/21/24 16:58:00 EST, Height/Length Dosing, 11.6, (more content not included)... Normal [facility] Comment on above: Result Comment: Elec tronically Signed By: Pablo Fu PA-C\.br\Date and Time Signed: 08/21/24 23:55 EST\.br\Electronically Co-Signed By: Migue Farrell M.D..br\Date and Time Co-Signed: 08/22/24 07:26 EST Grp A Strp PCRon 08-22-2024 Group A Strep Negative Normal Negative [facility] Comment on above: Order Comment: Order Added on by Discern Rule. Result Comment: Test ing performed using DNA amplification. Performed By: #### 1 [id number] #### [facility] [address] [place] [address] Grp A Strp Intrl Ctrl Pass Normal [facility] Comment on above: Order Comment: Order Added on by Discern Rule. Performed By: #### 1 [id number] #### [facility] [address] [place] [address] BMPon 08-21-2024 Anion gap [Moles/Vol] 12 mmol/L Normal 6-16 [facility] Comment on above: Performed By: #### 2 [id number] #### [facility] [address] [place] [address] Calcium [Mass/Vol] 9.4 mg/dL Normal 8.9-11.1 [facility] Comment on above: Performed By: #### 2 [id number] #### [facility] [address] [place] [address] Chloride [Moles/Vol] 100 mmol/L Low 101-111 [facility] Comment on above: Performed By: #### 2 [id number] #### [facility] [address] [place] [address] CO2 [Moles/Vol] 25 mmol/L Normal 21-31 [facility] Comment on above: Performed By: #### 2 [id number] #### [facility] [address] [place] [address] Creatinine [Mass/Vol] 0.7 mg/dL Normal 0.5-1.3 [facility] Comment on above: Performed By: #### 2 [id number] #### [facility] [address] [place] [address] Glucose [Mass/Vol] 79 mg/dL Normal 55-199 [facility] Comment on above: Performed By: #### 2 [id number] #### [facility] [address] [place] [address] Potassium [Moles/Vol] 3.7 mmol/L Normal 3.5-5.3 [facility] Comment on above: Performed By: #### 2 [id number] #### [facility] [address] [place] [address] Sodium [Moles/Vol] 133 mmol/L Low 135-145 [facility] Comment on above: Performed By: #### 2 [id number] #### [facility] [address] [place] [address] Urea nitrogen [Mass/Vol] 10 mg/dL Normal 5-21 [facility] Comment on above: Performed By: #### 2 [id number] #### [facility] [address] [place] [address] Urea nitrogen/Creatinine [Mass ratio] 14 No Units Normal 10-20 [facility] Comment on above: Performed By: #### 2 [id number] #### [facility] [address] [place] [address] CBC w/ Auto Diffon 5 Basophils/100 WBC (Bld) 0.3 % Normal 0.0-2.0 [facility] Comment on above: Performed By: #### 2 [id number] #### [facility] [address] [place] [address] Basophils/Leukocytes Auto (Bld) [Pure # fraction] 0.0 E9/L Normal 0.0-0.2 [facility] Comment on above: Performed By: #### 2 [id number] #### [facility] [address] [place] [address] Eosinophils (Bld) [#/Vol] 0.2 E9/L Normal 0.0-0.5 [facility] Comment on above: Performed By: #### 2 [id number] #### [facility] [address] [place] [address] Eosinophils/100 WBC (Bld) 2.6 % Normal 0.0-8.0 [facility] Comment on above: Performed By: #### 2 [id number] #### [facility] [address] [place] [address] Erythrocyte distribution width (RBC) [Ratio] 15.7 % High 10.9-14.2 [facility] Comment on above: Performed By: #### 2 [id number] #### [facility] [address] [place] [address] Hematocrit (Bld) [Volume fraction] 38.3 % Normal 34.0-46.0 [facility] Comment on above: Performed By: #### 2 [id number] #### [facility] [address] [place] [address] Hemoglobin (Bld) [Mass/Vol] 13.0 g/dL Normal 12.0-16.0 [facility] Comment on above: Performed By: #### 2 [id number] #### [facility] [address] [place] [address] Lymphocytes (Bld) [#/Vol] 1.8 E9/L Normal 1.0-4.0 [facility] Comment on above: Performed By: #### 2 [id number] #### [facility] [address] [place] [address] Lymphocytes/100 WBC (Bld) 27.3 % Normal 14.0-50.0 [facility] Comment on above: Performed By: #### 2 [id number] #### [facility] [address] [place] [address] MCH (RBC) [Entitic mass] 27.7 pg Normal 27.0-34.0 [facility] Comment on above: Performed By: #### 2 [id number] #### [facility] [address] [place] [address] MCHC (RBC) [Mass/Vol] 33.9 g/dL Normal 31.4-36.0 [facility] Comment on above: Performed By: #### 2 [id number] #### [facility] [address] [place] [address] MCV (RBC) [Entitic vol] 81.8 fL Normal 80.0-100.0 [facility] Comment on above: Performed By: #### 2 [id number] #### [facility] [address] [place] [address] Monocytes (Bld) [#/Vol] 0.5 E9/L Normal 0.2-1.0 [facility] Comment on above: Performed By: #### 2 [id number] #### [facility] [address] [place] [address] Neutrophils (Bld) [#/Vol] 4.2 E9/L Normal 2.0-7.5 [facility] Comment on above: Performed By: #### 2 [id number] #### [facility] [address] [place] [address] Neutrophils/100 WBC (Bld) 61.9 % Normal 36.0-75.0 [facility] Comment on above: Performed By: #### 2 [id number] #### [facility] [address] [place] [address] Platelet 446.0 E9/L Normal 150.0-500. 0 [facility] Comment on above: Performed By: #### 2 [id number] #### [facility] [address] [place] [address] Platelet mean volume (Bld) [Entitic vol] 7.4 fL Normal 6.4-10.8 [facility] Comment on above: Performed By: #### 2 [id number] #### [facility] [address] [place] [address] RBC (Bld) [#/Vol] 4.7 E12/L Normal 4.3-5.9 [facility] Comment on above: Performed By: #### 2 [id number] #### [facility] [address] [place] [address] WBC corrected for nucl RBC Auto (Bld) [#/Vol] 6.8 E9/L Normal 4.0-11.0 [facility] Comment on above: Performed By: #### 2 [id number] #### [facility] [address] [place] [address] CHEMISTRYOrdered By: SYSTEM SYSTEM on 08-21-2024 Albumin [Mass/Vol] 4.1 g/dL Normal 3.3 - 5.0 gm/dL [facility] Albumin/Globulin [Mass ratio] 1.1 {ratio} Normal 1.1 - 2.2 [facility] ALP [Catalytic activity/Vol] 54 [iU]/d Normal 21 - 98 Int._Unit/ L [facility] ALT No additional P-5'-P [Catalytic activity/Vol] 32 [iU]/d Normal 6 - 46 Int._Unit/ L [facility] Anion gap [Moles/Vol] 12 mmol/L Normal 6 - 16 mEq/L [facility] AST [Catalytic activity/Vol] 27 [iU]/d Normal 5 - 43 Int._Unit/ L [facility] Bilirubin [Mass/Vol] 0.7 mg/dL Normal 0.0 - 1 .1 mg/dL [facility] Bilirubin.direct [Mass/Vol] 0.0 mg/dL Normal 0.0 - 0.4 mg/dL [facility] Bilirubin.indirect [Mass or moles/Vol] 0.7 mg/dL Normal 0.1 - 0.9 mg/dL [facility] Calcium [Mass/Vol] 9.4 mg/dL Normal 8.9 - 11. 1 mg/dL [facility] Chloride [Moles/Vol] 100 mmol/L Low 101 - 1 11 mmol/L [facility] CO2 [Moles/Vol] 25 mmol/L Normal 21 - 31 mmol/L [facility] Creatinine [Mass/Vol] 0.7 mg/dL Normal 0.5 - 1.3 mg/dL [facility] eGFR 127 mL/min/1.73 m2 Normal >=59mL/mi n /1.73 m2 [facility] Globulin (S) [Mass/Vol] 3.8 g/dL Normal 1.4 - 4.0 gm/dL [facility] Glucose [Mass/Vol] 79 mg/dL Normal 55 - 199 mg/dL [facility] Lipase [Catalytic activity/Vol] 20 U/L Normal 13 - 58 unit/L [facility] Potassium [Moles/Vol] 3.7 mmol/L Normal 3.5 - 5.3 mmol/L [facility] Protein [Mass/Vol] 7.9 g/dL High 6.0 - 7.8 gm/dL [facility] Sodium [Moles/Vol] 133 mmol/L Low 135 - 145 mmol/L [facility] Urea nitrogen [Mass/Vol] 10 mg/dL Normal 5 - 21 mg/dL [facility] Urea nitrogen/Creatinine [Mass ratio] 14 mg/mg Normal 10 - 20 [facility] ED Clinical Summaryon 2024 ED Clinical Summary ED Clinical Summary [place] [id number] ED Clinical Summary Person Information Name: ROSE MARY SCHNEIDER [facility] Age: 18 Years : 2005 Sex: Female Language: Wallisian PCP: Fredi Ellington MD Marital Status: Single Visit Id: Visit Reason: Sinus Pain/Congestion; Cough; Vomiting - ; Nausea and vomiting; N/V, 8 WEEKS Speciality: Acuity: 3 Enc Type: Emergency Med Service: Emergency Arrival: 08/21/2024 16:53:26 Discharge: 08/21/2024 20:37:55 LOS: 000 03:44 Checkin: 08/21/2024 16:53:26 Checkout: 08/21/2024 20:37:55 Dispo Type: Home (Routine DC) EVENTS: Event Name Event Status Request Date/Time Start Date/Time Complete Date/Time Arrive Complete 08/21/2024 16:53:26 08/21/2024 16:53:26 08/21/2024 16:53:26 Document Home Meds Request 08/21/2024 16:53:26 Triage Complete 08/21/2024 16:53:26 08/21/2024 16:58:32 08/21/2024 16:58:32 Bed Assign Complete 08/21/2024 16:55:39 08/21/2024 16:55:39 08/21/2024 16:55:39 Dr Exam Complete 08/21/2024 16:55:39 08/21/2024 17:05:35 08/21/2024 17:05:35 RN Exam Complete 08/21/2024 16:55:39 08/21/2024 17:55:34 08/21/2024 17:55:34 Registration Complete 08/21/2024 16:55:52 08/21/2024 16:55:52 08/21/2024 16:55:52 Reg Complete Request 08/21/2024 16:55:52 Reg Bed Request Complete 08/21/2024 16:55:52 08/21/2024 16:55:52 08/21/2024 16:55:52 Registration Request 08/21/2024 17:05:35 Dr Exam Complete 08/21/2024 17:09:50 08/21/2024 17:09:50 08/21/2024 17:09:50 Meds Admin Complete 08/21/2024 17:32:03 08/21/2024 17:49:30 Pending Labs Complete 08/21/2024 17:32:03 08/21/2024 19:10:24 Lab Complete 08/21/2024 17:32:03 08/21/2024 18:22:44 Pending Labs Complete 08/21/2024 17:32:39 08/21/2024 18:19:57 Swab Complete 08/21/2024 17:32:39 08/21/2024 18:19:57 Lab Complete 08/21/2024 17:32:39 08/21/2024 18:19:57 Pending Labs Complete 08/21/2024 17:56:21 08/21/2024 17:56:21 08/21/2024 18:22:44 Lab Complete 08/21/2024 17:56:21 08/21/2024 17:56:21 08/21/2024 18:22:44 Pending Labs Inlab 08/21/2024 18:19:58 08/21/2024 18:19:58 Pending Labs Complete 08/21/2024 19:15:53 08/21/2024 19:15:53 08/21/2024 19:15:53 Pending Labs Complete 08/21/2024 19:22:04 08/21/2024 19:22:04 08/21/2024 19:22:04 Discharge Complete 08/21/2024 20:13:41 08/21/2024 20:38:01 08/21/2024 20:38:01 Transfer Complete 08/21/2024 20:38:01 08/21/2024 20:38:01 08/21/2024 20:38:01 ADDRESS: [address] [place] [id number] PHYS DOC NOTES: MEDICAL INFORMATION: Prescriptions Given: New Medications [id number] [address] [place], [place] [id number], [phone] promethazine (promethazine 12.5 mg oral tablet) 1 Tablets By Mouth every 4 hours. Refills: 0. Medications to Continue with No Changes Other Medications brompheniramine/dextromet horphan/PSE (Bromfed DM oral syrup) 5 Milliliter By Mouth 4 times a day as needed for cold symptoms. Refills: 0. cetirizine (cetirizine 5 mg oral tablet) 2 Tablets By Mouth every day. clonidine (cloNIDine 0.1 mg tab) 1 Tablets By Mouth every day. ethinyl estradiol-norethindrone (Junel Fe 08/22 oral tablet) 28 EA, TAKE 1 TABLET BY MOUTH EVERY DAY. fluoxetine (FLUoxetine 40 mg Cap) lurasidone (lurasidone 60 mg oral tablet) 30 EA, TAKE 1 TABLET BY ORAL ROUTE 1 TIME PER DAY WITH FOOD (AT LEAST 350 CALORIES). melatonin ondansetron (Zofran ODT 4 mg Tab-Dis) 1 Tablets By Mouth every 8 hours as needed Nausea/Vomiting. Refills: 0. ondansetron (Zofran ODT 4 mg Tab-Dis) 1 Tablets By Mouth every 8 hours as needed Nausea/Vomiting. Refills: 0. pantoprazole (Protonix 40 mg tablet) PATIENT EDUCATION INFORMATION: Instructions: Upper Respiratory Infection, Adult; Morning Sickness Follow up: With: Address: When: Cheri Martin [facility] [address], [place], [place] [id number] Business (1) In 3 days 08/24/2024 With: Address: When: Fredi Ellington [facility] [facility], [place] [address] Business (1) In 3 days 08/24/2024 DIAGNOSIS: Nausea and vomiting in ; Viral URI with cough Normal [facility] ED Patient Summaryon 025 ED Patient Summary ED Patient Summary [place] [id number] Patient Discharge Instructions Person Information Name: ROSE MARY SCHNEIDER Age: 18 Years Arrival Date: 08/21/2024 16:53:26 Discharge Diagnosis: Nausea and vomiting in ; Viral URI with cough Primary Care Physician: Fredi Ellington MD Provider Information Primary Provider: Migue Farrell M.D. Advanced Shop Superintendent:Pablo Fu PA-C The exam and treatment you received in the Emergency Department were for an urgent problem and are not intended as complete care. It is important that you follow up with a doctor, nurse practitioner, or physician???s financial planning assistant for ongoing care. If your symptoms become worse or you do not improve as expected and you are unable to reach your usual health care provider, you should return to the Emergency Department. We are available 24 hours a day. ROSE MARY SCHNEIDER has been given the following list of patient education materials, prescriptions and follow-up instructions: Follow-up Instructions: With: Address: When: Cheri Joiner [address] [place], [place] [id number] Business (1) In 3 days 08/24/2024 With: Address: When: Fredi Rakel [address] [place], [place] [id number] [facility] (1) In 3 days 08/24/2024 In the event that this physician does not participate in your insurance network, please consult with your insurance company to find a nearby participating provider. Patient Education Materials: Upper Respiratory Infection, Adult; Morning Sickness A MESSAGE TO ALL PATIENTS REGARDING OPIOIDS PRESCRIPTION OPIOIDS: WHAT YOU NEED TO KNOW Prescription opioids can be used to help relieve zbrzupir-ns-wpaqin pain and are often prescribed following a [...] as well, even when taken as directed: ??? Tolerance???meaning you might need to take more of the medication for the same pain relief ??? Physical dependence???meaning you have symptoms of withdrawal when a medication is stopped ??? Increased sensitivity to pain ??? Constipation ??? Nausea, vomiting, and dry mouth ??? Sleepiness and dizziness ??? Confusion ??? Depression ??? Low levels of testosterone that can result in lower sex drive, energy, and strength ??? Itching and sweating RISKS ARE GREATER WITH: ??? History of drug misuse, substance use disorder, or overdose ??? Mental health conditions (such as depression or anxiety) ??? Sleep apnea ??? Older age (65 years and older) ??? Avoid alcohol while taking prescription opioids. Also, unless specifically advised by your health care provider, medications to avoid include: ??? Benzodiazepines (such as Xanax or Valium) ??? Muscle relaxants (such as Soma or Flexeril) ??? Hypnotics (such as Ambien or Lunesta) ??? Other prescription opioids KNOW YOUR OPTIONS Talk to your health care provider about ways to manage your pain that don???t involve prescription opioids. Some of these options may actually work better and have fewer risks and side effects. Options may include: ??? Pain relievers such as acetaminophen, ibuprofen, and naproxen ??? Some medication that are also used for depression or seizures ??? Physical therapy and exercise ??? Cognitive behavioral therapy, a psychological, goal-directed approach, in which patients learn how to modify physical, behavioral, and emotional triggers of pain and stress. IF YOU ARE PRESCRIBED OPIOIDS FOR PAIN: ??? Never take opioids in greater amounts or more often than prescribed. ??? Follow up with your primary health care provider. o Work together to create a plan on how to manage your pain. o Talk about ways to help manage your pain that don???t involve prescription opioids. o Talk about any and all concerns and side effects. ??? Help prevent misuse and abuse o Never sell or share prescription opioids. o Never use another person???s prescription opioids. ??? Store prescription opioids in a secure place and out of reach of others (this may include visitors, children, friends, and family). ??? Safely dispose of unused prescription opioids: Find your community drug take-back program or your pharmacy mail-back program, or flush them down the toilet, following guidance from the Food and Drug Administration (www.f (more content not included)... Normal [facility] Extra Blueon 08-21-2024 Tube Collected Plasma Yes Invalid Interpretation Code [facility] Comment on above: Performed By: #### 1 [id number] #### [facility] [address] [place] [address] HEMATOLOGYOrdered By: SYSTEM SYSTEM on 08-21-2024 Basophils/100 WBC (Bld) 0.3 % Normal 0.0 - 2.0 % Remisol Heme Basophils/Leukocytes Auto (Bld) [Pure # fraction] 0.0 E9/L Normal 0.0 - 0.2 E9/L Remisol Heme Eosinophils (Bld) [#/Vol] 0.2 E9/L Normal 0.0 - 0.5 E9/L Remisol Heme Eosinophils/100 WBC (Bld) 2.6 % Normal 0.0 - 8.0 % Remisol Heme Erythrocyte distribution width (RBC) [Ratio] 15.7 % High 10.9 - 14.2 % Remisol Heme Hematocrit (Bld) [Volume fraction] 38.3 % Normal 34.0 - 46.0 % Remisol Heme Hemoglobin (Bld) [Mass/Vol] 13.0 g/dL Normal 12.0 - 16.0 gm/dL Remisol Heme Lymphocytes (Bld) [#/Vol] 1.8 E9/L Normal 1.0 - 4.0 E9/L Remisol Heme Lymphocytes/100 WBC (Bld) 27.3 % Normal 14.0 - 50.0 % Remisol Heme MCH (RBC) [Entitic mass] 27.7 pg Normal 27.0 - 34.0 pg Remisol Heme MCHC (RBC) [Mass/Vol] 33.9 g/dL Normal 31.4 - 36.0 gm/dL Remisol Heme MCV (RBC) [Entitic vol] 81.8 fL Normal 80.0 - 100.0 fL Remisol Heme Monocytes (Bld) [#/Vol] 0.5 E9/L Normal 0.2 - 1.0 E9/L Remisol Heme Monocytes/100 WBC (Bld) 7.9 % Normal 4.0 - 14.0 % Remisol Heme Neutrophils (Bld) [#/Vol] 4.2 E9/L Normal 2.0 - 7.5 E9/L Remisol Heme Neutrophils/100 WBC (Bld) 61.9 % Normal 36.0 - 75.0 % Remisol Heme Platelet 446.0 E9/L Normal 150.0 - 500.0 E9/L Remisol Heme Platelet mean volume (Bld) [Entitic vol] 7.4 fL Normal 6.4 - 10.8 fL Remisol Heme RBC (Bld) [#/Vol] 4.7 E12/L Normal 4.3 - 5.9 E12/L Remisol Heme WBC corrected for nucl RBC Auto (Bld) [#/Vol] 6.8 E9/L Normal 4.0 - 11.0 E9/L Remisol Heme Hep Func Panelon 08-21-2024 Albumin [Mass/Vol] 4.1 g/dL Normal 3.3-5.0 [facility] Comment on above: Performed By: #### 2 [id number] #### [facility] [address] [place] [address] Albumin/Globulin (S) [Mass conc ratio] 1.1 Normal 1.1-2.2 [facility] Comment on above: Performed By: #### 2 [id number] #### [facility] [address] [place] [address] ALP [Catalytic activity/Vol] 54 Int._Unit/L Normal 21-98 [facility] Comment on above: Performed By: #### 2 [id number] #### [facility] [address] [place] [address] ALT No additional P-5'-P [Catalytic activity/Vol] 32 Int._Unit/L Normal 6-46 [facility] Comment on above: Performed By: #### 2 [id number] #### [facility] [address] [place] [address] AST [Catalytic activity/Vol] 27 Int._Unit/L Normal 5-43 [facility] Comment on above: Performed By: #### 2 [id number] #### [facility] [address] [place] [address] Bilirubin [Mass/Vol] 0.7 mg/dL Normal 0.0-1.1 [facility] Comment on above: Performed By: #### 2 [id number] #### [facility] [address] [place] [address] Bilirubin.direct [Mass/Vol] 0.0 mg/dL Normal 0.0-0.4 [facility] Comment on above: Performed By: #### 2 [id number] #### [facility] [address] [place] [address] Bilirubin.indirect [Mass or moles/Vol] 0.7 mg/dL Normal 0.1-0.9 [facility] Comment on above: Performed By: #### 2 [id number] #### [facility] [address] [place] [address] Globulin (S) [Mass/Vol] 3.8 g/dL Normal 1.4-4.0 [facility] Comment on above: Performed By: #### 2 [id number] #### [facility] [address] [place] [address] Protein [Mass/Vol] 7.9 g/dL High 6.0-7.8 [facility] Comment on above: Performed By: #### 2 [id number] #### [facility] [address] [place] [address] Influenza A&B Agon 5 Influenzae A Ag Negative Normal Negative [facility] Comment on above: Performed By: #### 1 [id number] #### [facility] [address] [place] [address] Influenzae B Ag Negative Normal Negative [facility] Comment on above: Result Comment: Test sensitivity and specificity vary for age group, specimen type, antigen types, and prevalence of disease. Test results must be evaluated in conjunction with other clinical data available to the physician. Individuals who received nasally administered Influenza A vaccine may have positive test results up to 3 days after vaccination. Performed By: #### 1 [id number] #### [facility] [address] [place] [address] Lipase Levelon 08-21-2024 Lipase [Catalytic activity/Vol] 20 U/L Normal 13-58 [facility] Comment on above: Performed By: #### 2 [id number] #### [facility] [address] [place] [address] MICRO OTHER TESTSOrdered By: Rafiq Norris on 08-21-2024 Influenzae A Ag Negative (08/21/24 5:50 PM) Normal Negative [facility] Man Sero Influenzae B Ag Negative 2 (08/21/24 5:50 PM) Normal Negative [facility] Man Sero Comment on above: Interpretive Data: T est sensitivity and specificity vary for age group, specimen type, antigen types, and prevalence of disease. Test results must be evaluated in conjunction with other clinical data available to the physician. Individuals who received nasally administered Influenza A vaccine may have positive test results up to 3 days after vaccination. Rapid COV Int NEG Ctl Pass (08/21/24 5:50 PM) Normal [facility] Man Sero Rapid COV Int POS Ctl Pass (08/21/24 5:50 PM) Normal [facility] Sero S. pyogenes Ag IA.rapid Ql (Throat) Negative (08/21/24 5:50 PM) Normal Negative [facility] Sero SARS-CoV+SARS-CoV-2 (COVID-19) Ag IA.rapid Ql (Resp) Not Detected 3 (08/21/24 5:50 PM) Normal Not Detected [facility] Man Sero Comment on above: Interpretive Data: T he Vidit Veritor System for Rapid Detection of SARS-CoV-2 is [...] be considered in the context of a patient s recent exposures, history and the presence of [...] laboratories certified under the CLIA, 42 U.S.C. 263a, that meet requirements to perform moderate, high, or waived complexity tests and at the Point of Care (POC), i.e., in patient care settings operating under a CLIA Certificate of Waiver, Certificate of Compliance, or Certificate of Accreditation. This test has been authorized only for [...] Section 564(b)(1) of the Act, 21 U.S.C. 360bbb-3(b)(1), unless the authorization is terminated or revoked sooner. Rapid COVID Antigen ([facility])on 08-21-2024 Rapid COV Int NEG Ctl Pass Normal [facility] Comment on above: Performed By: #### 2 [id number] #### [facility] [address] [place] [address] Rapid COV Int POS Ctl Pass Normal [facility] Comment on above: Performed By: #### 2 [id number] #### [facility] [address] [place] [address] SARS-CoV+SARS-CoV-2 (COVID-19) Ag IA.rapid Ql (Resp) Not detected Normal Not Detected [facility] Comment on above: Result Comment: The BD Veritor??? System for Rapid Detection of SARS-CoV-2 is [...] be considered in the context of a patient???s recent exposures, history and the presence of clinical signs and symptoms consistent with COVID-19, and confirmed with a molecular assay, if necessary, for patient management. For in vitro diagnostic use. In the [facility], only for use under an Emergency Use Authorization. In the [place], this test has not been FDA cleared or approved; this test has been authorized by FDA under an EUA for use by authorized laboratories; use by laboratories certified under the CLIA, 42 U.S.C. ???263a, that meet requirements to perform moderate, high, or waived complexity tests and at the Point of Care (POC), i.e., in patient care settings operating under a CLIA Certificate of Waiver, Certificate of Compliance, or Certificate of Accreditation. This test has been authorized only for the detection of proteins from SARS-CoV-2, not for any other viruses or pathogens; and, in the [facility], this test is only authorized for the duration of the declaration that circumstances exist justifying the authorization of emergency use of in vitro diagnostics for detection and/or diagnosis of the virus that causes COVID-19 under Section 564(b)(1) of the Act, 21 U.S.C. ??? 360bbb-3(b)(1), unless the authorization is terminated or revoked sooner. Performed By: #### 2 [id number] #### [facility] [address] [place] [address] Rapid Strep w/rfxon 08-21-19 25 S. pyogenes Ag IA.rapid Ql (Throat) Negative Normal Negative [facility] Comment on above: Performed By: #### 2 [id number] #### [facility] [address] [place] [address] UA with Cult Rflxon 08-21-19 25 Bilirubin Ql (U) Negative Normal Negative [facility] Comment on above: Performed By: #### 4 [id number] #### [facility] [address] [place] [address] Clarity (U) Clear Normal Clear [facility] Comment on above: Performed By: #### 4 [id number] #### [facility] [address] [place] [address] Color (U) Yellow Normal Yellow [facility] Comment on above: Result Comment: Micr oscopic readings are only performed on those samples that meet specific criteria set forth by [facility]. Performed By: #### 4 [id number] #### [facility] [address] [place] [address] Glucose Ql (U) Negative Normal Negative [facility] Comment on above: Performed By: #### 4 [id number] #### [facility] [address] [place] [address] Hemoglobin Auto test strip (U) [Mass/Vol] Negative Normal Negative [facility] Comment on above: Performed By: #### 4 [id number] #### [facility] [address] [place] [address] Ketones Auto test strip Ql (U) 1+ mg/dL Abnormal Negative [facility] Comment on above: Performed By: #### 4 [id number] #### [facility] [address] [place] [address] Leukocyte esterase Auto test strip Ql (U) Negative Normal Negative [facility] Comment on above: Performed By: #### 4 [id number] #### [facility] [address] [place] [address] Nitrite Auto test strip Ql (U) Negative Normal Negative [facility] Comment on above: Performed By: #### 4 [id number] #### [facility] [address] [place] [address] pH (U) 6.0 [pH] Invalid Interpretation Code 5.0-9.0 [facility] Comment on above: Performed By: #### 4 [id number] #### [facility] [address] [place] [address] Protein Ql (U) Negative Normal Negative [facility] Comment on above: Performed By: #### 4 [id number] #### [facility] [address] [place] [address] Specific gravity (U) [Rel density] 1.013 Invalid Interpretation Code 1.005-1.03 0 [facility] Comment on above: Performed By: #### 4 [id number] #### [facility] [address] [place] [address] Urobilinogen (U) [Mass/Vol] Negative Normal Negative [facility] Comment on above: Performed By: #### 4 [id number] #### [facility] [address] [place] [address] Type of Urine collection method Clean Catch Normal [facility] Comment on above: Performed By: #### 4 [id number] #### [facility] [address] [place] [address] URINALYSISOrdered By: SYSTEM SYSTEM on 08-21-2024 Bilirubin Ql (U) Negative Normal Negativemg /dL [facility] UA Auto SS Clarity (U) Clear (08/21/24 6:54 PM) Normal Clear [facility] UA Auto SS Color (U) Yellow 1 (08/21/24 6:54 PM) Normal Yellow [facility] UA Auto SS Comment on above: Interpretive Data: M icroscopic readings are only performed on those samples that meet specific criteria set forth by [facility]. Glucose Ql (U) Negative Normal Negativemg /dL [facility] UA Auto SS Hemoglobin Auto test strip (U) [Mass/Vol] Negative Normal Negativemg /dL [facility] UA Auto SS Ketones Auto test strip Ql (U) 1+ mg/dL Invalid Interpretation Code Negativemg /dL [facility] UA Auto SS Leukocyte esterase Auto test strip Ql (U) Negative Normal NegativeLe u/uL [facility] UA Auto SS Nitrite Auto test strip Ql (U) Negative Normal Negativemg /dL [facility] UA Auto SS pH (U) 6.0 *NA* (08/21/24 6:54 PM) Invalid Interpretation Code 5.0 - 9.0 [facility] UA Auto SS Protein Ql (U) Negative Normal Negativemg /dL [facility] UA Auto SS Specific gravity (U) [Rel density] 1.013 *NA* (08/21/24 6:54 PM) Invalid Interpretation Code 1.005 - 1.030 [facility] UA Auto SS Urobilinogen (U) [Mass/Vol] Negative Normal Negativemg /dL [facility] UA Auto SS URINALYSISOrdered By: Pablo Fu on 08-21-2024 UA Spec Desc Clean Catch (08/21/24 6:54 PM) Normal [facility] UA Auto SS eGFRon 08-21-2024 eGFR 127 mL/min/1.73 m2 Normal >=59 [facility] Comment on above: Performed By: #### 1 [id number] #### [facility] [address] [place] [address] BMPon 06-27-2024 Anion gap [Moles/Vol] 9 mmol/L Normal 6-16 [facility] Comment on above: Performed By: #### 2 [id number] #### [facility] [address] [place] [address] Calcium [Mass/Vol] 8.6 mg/dL Low 8.9-11.1 [facility] Comment on above: Performed By: #### 2 [id number] #### [facility] [address] [place] [address] Chloride [Moles/Vol] 106 mmol/L Normal 101-111 [facility] Comment on above: Performed By: #### 2 [id number] #### [facility] [address] [place] [address] CO2 [Moles/Vol] 29 mmol/L Normal 21-31 [facility] Comment on above: Performed By: #### 2 [id number] #### [facility] [address] [place] [address] Creatinine [Mass/Vol] 0.8 mg/dL Normal 0.5-1.3 [facility] Comment on above: Performed By: #### 2 [id number] #### [facility] [address] [place] [address] Glucose [Mass/Vol] 91 mg/dL Normal 55-199 [facility] Comment on above: Performed By: #### 2 [id number] #### [facility] [address] [place] [address] Potassium [Moles/Vol] 3.2 mmol/L Low 3.5-5.[address] [facility] Comment on above: Performed By: #### 2 [id number] #### [facility] [address] [place] [address] Sodium [Moles/Vol] 141 mmol/L Normal 135-145 [facility] Comment on above: Performed By: #### 2 [id number] #### [facility] [address] [place] [address] Urea nitrogen [Mass/Vol] 9 mg/dL Normal 5-21 [facility] Comment on above: Performed By: #### 2 [id number] #### [facility] [address] [place] [address] Urea nitrogen/Creatinine [Mass ratio] 11 No Units Normal 10-20 [facility] Comment on above: Performed By: #### 2 [id number] #### [facility] [address] [place] [address] CBC w/ Auto Diffon 06-27- 4 Basophils/100 WBC (Bld) 0.4 % Normal 0.0-2.0 [facility] Comment on above: Performed By: #### 2 [id number] #### [facility] [address] [place] [address] Basophils/Leukocytes Auto (Bld) [Pure # fraction] 0.0 E9/L Normal 0.0-0.2 [facility] Comment on above: Performed By: #### 2 [id number] #### [facility] [address] [place] [address] Eosinophils (Bld) [#/Vol] 0.2 E9/L Normal 0.0-0.5 [facility] Comment on above: Performed By: #### 2 [id number] #### [facility] [address] [place] [address] Eosinophils/100 WBC (Bld) 3.6 % Normal 0.0-8.0 [facility] Comment on above: Performed By: #### 2 [id number] #### [facility] [address] [place] [address] Erythrocyte distribution width (RBC) [Ratio] 14.7 % High 10.9-14.2 [facility] Comment on above: Performed By: #### 2 [id number] #### [facility] [address] [place] [address] Hematocrit (Bld) [Volume fraction] 36.6 % Normal 34.0-46.0 [facility] Comment on above: Performed By: #### 2 [id number] #### [facility] [address] [place] [address] Hemoglobin (Bld) [Mass/Vol] 12.4 g/dL Normal 12.0-16.0 [facility] Comment on above: Performed By: #### 2 [id number] #### [facility] [address] [place] [address] Lymphocytes (Bld) [#/Vol] 2.3 E9/L Normal 1.0-4.0 [facility] Comment on above: Performed By: #### 2 [id number] #### [facility] [address] [place] [address] Lymphocytes/100 WBC (Bld) 39.0 % Normal 14.0-50.0 [facility] Comment on above: Performed By: #### 2 [id number] #### [facility] [address] [place] [address] MCH (RBC) [Entitic mass] 28.0 pg Normal 27.0-34.0 [facility] Comment on above: Performed By: #### 2 [id number] #### [facility] [address] [place] [address] MCHC (RBC) [Mass/Vol] 34.0 g/dL Normal 31.4-36.0 [facility] Comment on above: Performed By: #### 2 [id number] #### [facility] [address] [place] [address] MCV (RBC) [Entitic vol] 82.4 fL Normal 80.0-100.0 [facility] Comment on above: Performed By: #### 2 [id number] #### [facility] [address] [place] [address] Monocytes (Bld) [#/Vol] 0.5 E9/L Normal 0.2-1.0 [facility] Comment on above: Performed By: #### 2 [id number] #### [facility] [address] [place] [address] Neutrophils (Bld) [#/Vol] 2.8 E9/L Normal 2.0-7.5 [facility] Comment on above: Performed By: #### 2 [id number] #### [facility] [address] [place] [address] Neutrophils/100 WBC (Bld) 48.2 % Normal 36.0-75.0 [facility] Comment on above: Performed By: #### 2 [id number] #### [facility] [address] [place] [address] Platelet mean volume (Bld) [Entitic vol] 7.5 fL Normal 6.4-10.8 [facility] Comment on above: Performed By: #### 2 [id number] #### [facility] [address] [place] [address] Platelets (Bld) [#/Vol] 430.0 E9/L Normal 150. 0-500. 0 [facility] Comment on above: Performed By: #### 2 [id number] #### [facility] [address] [place] [address] RBC (Bld) [#/Vol] 4.5 E12/L Normal 4.3-5.9 [facility] Comment on above: Performed By: #### 2 [id number] #### [facility] [address] [place] [address] WBC corrected for nucl RBC Auto (Bld) [#/Vol] 5.8 E9/L Normal 4.0-11.0 [facility] Comment on above: Performed By: #### 2 [id number] #### [facility] [address] [place] [address] CHEMISTRYOrdered By: SYSTEM SYSTEM on 06-27-2024 Anion gap [Moles/Vol] 9 mmol/L Normal 6 - 16 mEq/L [facility] Calcium [Mass/Vol] 8.6 mg/dL Low 8.9 - 11. 1 mg/dL [facility] Chloride [Moles/Vol] 106 mmol/L Normal 101 - 1 11 mmol/L [facility] CO2 [Moles/Vol] 29 mmol/L Normal 21 - 31 mmol/L [facility] Creatinine [Mass/Vol] 0.8 mg/dL Normal 0.5 - 1.3 mg/dL [facility] eGFR 108 mL/min/1.73 m2 Normal >=59mL/mi n /1.73 m2 [facility] Glucose [Mass/Vol] 91 mg/dL Normal 55 - 199 mg/dL [facility] Potassium [Moles/Vol] 3.2 mmol/L Low 3.5 - 5.3 mmol/L [facility] Sodium [Moles/Vol] 141 mmol/L Normal 135 - 145 mmol/L [facility] Troponin HS pg/mL Low 10.10 - 27.10 pg/mL [facility] Comment on above: Interpretive Data: T he 95% CI (Confidence Interval) PPV (Positive Predictive Value) for myocardial infarction in females is 38 pg/mL, in males 51 pg/mL. The results should be used in conjunction with clinical conditions of myocardial infarction. (Access High Sensitivity Troponin I Instructions For Use, Stephy Akhil, March 2018) Urea nitrogen [Mass/Vol] 9 mg/dL Normal 5 - 21 mg/dL [facility] Urea nitrogen/Creatinine [Mass ratio] 11 mg/mg Normal 10 - 20 [facility] COAGULATIONOrdered By: Pedro Norris on 06-27-2024 aPTT Coag (PPP) [Time] 32.9 s Normal 25.1 - 36.5 second(s) [facility] Auto Coag Comment on above: Interpretive Data: P arameter 15 days - 4 weeks 1 - [...] the same coagulation reagent and instrumentation as [facility]. Currently there are no coagulation studies available worldwide for children to 14 days, and no normal ranges. Heparin therapeutic range (represented by Anti-Factor Xa activity of 0.2 - 0.4 U/mL) corresponds to PTT of 56.6 - 109.0 sec. INR Coag (PPP) [Relative time] 0.99 {INR} Invalid Interpretation Code [facility] Auto Coag Comment on above: Interpretive Data: I NR results are specifically intended to assess patients stabilized on long-term Anticoagulation therapy suggested INR s Less Intensive Anticoagulation 2.0 3.0 Conventional Range 3.0 4.5 PT Coag (PPP) [Time] 11.1 s Normal 9.4 - 1 2.5 second(s) [facility] Auto Coag Comment on above: Interpretive Data: 1 5 days - 4 weeks 1 - 5 months 6 -11 months 1 5 years 6 10 years 11 -17 years Mean: 11.2 (9.5 12.6) Mean: 11.0 (9.7 12.8) Mean: 11.0 (9.8 13.0) Mean: 11.3 (9.9 13.4) Mean: 11.7 (10.0 14.6) Mean: 11.8 (10.0 - 14.1) Pediatric Reference ranges were obtained from a study by arcadio Ward al. prepared from 1437 samples obtained at 7 different centers using the same coagulation reagent and instrumentation as [facility]. Currently there are no coagulation studies available worldwide for children to 14 days, and no normal ranges. CT Head or Brain w/o Kranthi alejandro 06-27-2024 CT Head or Brain w/o Contrast Exam Date/Time: 06/26/2024 23:43 EST Reason for Exam: Injury Report IMPRESSION: NEGATIVE CT SCAN OF THE BRAIN. CLINICAL HISTORY: Injury. Passed out COMPARISON: 04/14/2024. COMMENT: Unenhanced images were obtained. The ventricles and basal cisterns and cortical sulci appear normal. There is no mass effect nor midline shift. No abnormal attenuation within the brain is noted. There is no evidence of intracranial hemorrhage nor extra-axial hematoma. No mass lesion is evident. No skull fracture is noted. All CT scans at this facility use dose modulation, iterative reconstruction, and/or weight based dosing when appropriate to reduce radiation dose to as low as reasonably achievable. Ordering Provider: Han Bolaños FINAL REPORT Dictated: 06/27/2024 8:31 am Orlando Harris M.D. Signed (Electronic Signature): 06/27/2024 8:31 am Signed by: Orlando Harris M.D. Transcribed by: GARTH Technologist: CARLOS Iqbal [facility] ED Clinical Summaryon 2023 ED Clinical Summary ED Clinical Summary [place] [id number] ED Clinical Summary Person Information Name: ROSE MARY SCHNEIDER/[facility] Age: 18 Years : 2005 Sex: Female Language: Wallisian PCP: Fredi Ellington MD Marital Status: Single Visit Id: Visit Reason: Headache; Syncope/Near syncope; passing out - might have hit her head while in the bathtub Speciality: Acuity: 3 Enc Type: Emergency Med Service: Emergency Arrival: 06/26/2024 23:10:41 Discharge: 06/27/2024 00:49:24 LOS: 000 01:39 Checkin: 06/26/2024 23:10:41 Checkout: 06/27/2024 00:49:24 Dispo Type: Home (Routine DC) EVENTS: Event Name Event Status Request Date/Time Start Date/Time Complete Date/Time Arrive Complete 06/26/2024 23:10:41 06/26/2024 23:10:41 06/26/2024 23:10:41 Document Home Meds Request 06/26/2024 23:10:41 Triage Complete 06/26/2024 23:10:41 06/26/2024 23:21:23 06/26/2024 23:21:23 Dr Exam Complete 06/26/2024 23:15:40 06/26/2024 23:15:40 06/26/2024 23:15:40 Registration Complete 06/26/2024 23:15:40 06/26/2024 23:21:32 06/26/2024 23:21:32 EKG Complete 06/26/2024 23:19:27 06/26/2024 23:29:49 Reg Complete Request 06/26/2024 23:21:32 Reg Bed Request Complete 06/26/2024 23:21:32 06/26/2024 23:21:32 06/26/2024 23:21:32 Bed Assign Complete 06/26/2024 23:21:39 06/26/2024 23:21:39 06/26/2024 23:21:39 RN Exam Complete 06/26/2024 23:21:39 06/26/2024 23:51:21 06/26/2024 23:51:21 Pending Labs Complete 06/26/2024 23:29:42 06/27/2024 00:35:46 Lab Complete 06/26/2024 23:29:42 06/27/2024 00:28:48 Patient Care Request 06/26/2024 23:29:42 X-Ray Complete 06/26/2024 23:29:42 06/26/2024 23:39:09 06/26/2024 23:46:40 Urine Collect Complete 06/26/2024 23:29:42 06/27/2024 00:13:45 CT Complete 06/26/2024 23:29:42 06/26/2024 23:30:12 06/26/2024 23:43:35 Wet Read Request 06/26/2024 23:46:40 Pending Labs Complete 06/27/2024 00:04:54 06/27/2024 00:04:54 06/27/2024 00:28:48 Lab Complete 06/27/2024 00:04:54 06/27/2024 00:04:54 06/27/2024 00:28:48 Meds Admin Complete 06/27/2024 00:36:35 06/27/2024 00:47:36 Discharge Complete 06/27/2024 00:41:15 06/27/2024 00:49:28 06/27/2024 00:49:28 Transfer Complete 06/27/2024 00:49:28 06/27/2024 00:49:28 06/27/2024 00:49:28 ADDRESS: [address] [facility] [id number] PHYS DOC NOTES: MEDICAL INFORMATION: Prescriptions Given: Medications to Continue with No Changes Other Medications brompheniramine/dextromet horphan/PSE (Bromfed DM oral syrup) 5 Milliliter By Mouth 4 times a day as needed for cold symptoms. Refills: 0. cetirizine (cetirizine 5 mg oral tablet) 2 Tablets By Mouth every day. clonidine (cloNIDine 0.1 mg tab) 1 Tablets By Mouth every day. ondansetron (Zofran ODT 4 mg Tab-Dis) 1 Tablets By Mouth every 8 hours as needed Nausea/Vomiting. Refills: 0. ondansetron (Zofran ODT 4 mg Tab-Dis) 1 Tablets By Mouth every 8 hours as needed Nausea/Vomiting. Refills: 0. pantoprazole (Protonix 40 mg tablet) PATIENT EDUCATION INFORMATION: Instructions: Hypokalemia; Non-Epileptic Seizures, Adult Follow up: With: Address: When: Melecio Rubio [facility], [address] [place] [address] Business (1) In 3 days 06/30/2024 With: Address: When: Fredi Ellington [address] [facility], [facility] [place] [phone] Business (1) In 3 days DIAGNOSIS: Hypokalemia; Nonepileptic episode Normal [facility] ED Note-Physicianon 06-27-20 ED Note-Physician ED Note-Physician Basic Information Time Seen: Han Bolaños DO 06/26/2024 23:15 Chief Complaint pt to ED with mother with c/o passing out . 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 mother states pt smoked weed and drank ETOH on Thursday and pt has been off since. pt alert and appropriate. denies vision changes or nausa. History of Present Illness HPI: Patient is a 18-year-old female with past medical history of pancreatitis who presents the ED with mother for unresponsive spells. Mother states that she has had these episodes in the past for which she has followed up with neurology and ultimately was ruled out of epileptic seizures but was told they thought it was more emotional seizures and that she has been taken off of seizure medications. Mother states that Thursday she gone out with friends and drank a mixture of alcohol and marijuana and since then she has been having increased episodes of this. She states that when this happened she stares off into space and does not respond anything for several minutes. Tonight she had these episodes in the bathroom and is unsure if she might of fallen during this episode but since she has had a generalized headache. ROS: Pertinent review of systems conducted and is negative except as noted above. Physical exam: General: nontoxic appearing and in no distress HEENT: Mucous membranes moist. No hemotympanums, Prado sign, or raccoon eyes. Neuro: awake and alert. Cranial nerves II through upper intact. Gross motor and sensation to all 4 extremities intact. Neck: supple, trachea midline Card: Heart regular rate and rhythm no murmur Resp: Lungs clear to auscultation no wheeze or rhonchi Abd: Soft and nondistended. No tenderness to palpation with no rebound or guarding. Ext: No gross deformity or edema Physical Exam Vitals & Measurements T: 37.0 ???C(Oral) HR: 89(Peripheral) RR: 18 BP: 117/78 SpO2: 99% HT: 170 cm WT: 115.7 kg BMI: 40.03 Medical Decision Making MEDICAL DECISION MAKING Number and Complexity of Problems Differential Diagnosis: [] [facility] Data External documents reviewed: N/A My EKG interpretation: Noted in chart if applicable My CT interpretation: N/A My X-ray interpretation: Noted in chart if applicable My Ultrasound interpretation: N/A Decision rules/scores evaluated: N/A Discussed with: N/A Treatment and Disposition ED Course: Patient is nontoxic. No distress. She is neurologically intact for me. She has an odd affect but otherwise normal exam. Since she is unsure if she fell and is complaining of a headache we will obtain a CT of the brain in addition to blood work and cardiac workup. The brain is read by teleradiology as unremarkable. Chest x-ray shows no acute process. Blood work shows a mild hypokalemia but is otherwise reassuring. She was given a dose of oral potassium replacement. Cussed the findings with the patient and mother at bedside. Discussed the plan of discharge with continued follow-up with her neurologist as well as primary care physician on outpatient basis. Patient was discharged in stable condition. Shared decision making: As above Code status: N/A Assessment/Plan Hypokalemia (E87.6: Hypokalemia) Nonepileptic episode (R56.9: Unspecified convulsions) Orders: potassium chloride, 40 mEq = 2 tab(s), Tab-ER, Oral, Once, Stop date 06/27/24 0:36:00 EST, STAT, Start date 06/27/24 0:36:00 EST, 06/27/24 0:36:00 EST Basic Metabolic Panel CBC w/ Auto Diff CT Head or Brain w/o Contrast Drug Screen Urine ED Cardiac Monitoring eGFR Oxygen Saturation PT & PTT Troponin 0 Hr. U Beta Hcg Qual UA with Cult Rflx XR Chest Single View Disposition Plan Discharge Prescription List Prescriptions No active prescription medications Follow-up With When Contact Information Melecio Rubio In 3 days 06/30/[address] [address]- Business (1) Additional Instructions: Fredi Ellington In 3 days [address] [facility] [place] [address]- Business (1) Additional Instructions: Patient Education Hypokalemia Non-Epileptic Seizures, Adult Problem List/Past Medical History Ongoing Acute pancreatitis BMI 40.0-44.9, adult Esophageal dysphagia Family history of pancreatitis Gastroenteritis Injury of head Insomnia Obesity due to excess calories Right upper quadrant pain Smoker Historical Seizure Procedure/Surgical History Myringotomy and drainage of middle ear. Medications Inpatient No active inpatient medications Home Bromfed DM oral syrup, 5 mL, Oral, QID, PRN cetirizine 5 mg oral tablet, 10 mg= 2 tab(s), Oral, Daily cloNIDine 0.1 mg tab, 0.1 mg= 1 tab(s), Oral, Daily FLUoxetine 40 mg Cap Junel Fe 08/22 oral tablet lurasidone 60 mg oral tablet melatonin Protonix 40 mg tablet Zofran ODT 4 mg Tab-Dis, 4 mg= 1 tab(s), Oral, q8hr, PRN Zofran ODT 4 mg Tab-Dis, 4 mg= 1 tab(s), Oral, q8hr, MT (more content not included)... Normal [facility] Comment on above: Result Comment: Elec tronically Signed By: Han Bolaños DO\.br\Date and Time Signed: 06/27/24 00:42 EST ED Patient Summaryon 024 ED Patient Summary ED Patient Summary [place] [id number] Patient Discharge Instructions Person Information Name: ROSE MARY SCHNEIDER Age: 18 Years Arrival Date: 06/26/2024 23:10:41 Discharge Diagnosis: Hypokalemia; Nonepileptic episode Primary Care Physician: Fredi Ellington MD Provider Information Primary Provider: Han Bolaños DO Advanced Shop Superintendent:None The exam and treatment you received in the Emergency Department were for an urgent problem and are not intended as complete care. It is important that you follow up with a doctor, nurse practitioner, or physician???s financial planning assistant for ongoing care. If your symptoms become worse or you do not improve as expected and you are unable to reach your usual health care provider, you should return to the Emergency Department. We are available 24 hours a day. ROSE MARY SCHNEIDER has been given the following list of patient education materials, prescriptions and follow-up instructions: Follow-up Instructions: With: Address: When: Melecio Rubio [facility], [address] [place] [address] Business (1) In 3 days 06/30/2024 With: Address: When: Fredi Ellington [address] [facility], [facility] [place] [address] Business (1) In 3 days In the event that this physician does not participate in your insurance network, please consult with your insurance company to find a nearby participating provider. Patient Education Materials: Hypokalemia; Non-Epileptic Seizures, Adult A MESSAGE TO ALL PATIENTS REGARDING OPIOIDS PRESCRIPTION OPIOIDS: WHAT YOU NEED TO KNOW Prescription opioids can be used to help relieve rocbvuwh-hk-edmyft pain and are often prescribed following a [...] as well, even when taken as directed: ??? Tolerance???meaning you might need to take more of the medication for the same pain relief ??? Physical dependence???meaning you have symptoms of withdrawal when a medication is stopped ??? Increased sensitivity to pain ??? Constipation ??? Nausea, vomiting, and dry mouth ??? Sleepiness and dizziness ??? Confusion ??? Depression ??? Low levels of testosterone that can result in lower sex drive, energy, and strength ??? Itching and sweating RISKS ARE GREATER WITH: ??? History of drug misuse, substance use disorder, or overdose ??? Mental health conditions (such as depression or anxiety) ??? Sleep apnea ??? Older age (65 years and older) ??? Avoid alcohol while taking prescription opioids. Also, unless specifically advised by your health care provider, medications to avoid include: ??? Benzodiazepines (such as Xanax or Valium) ??? Muscle relaxants (such as Soma or Flexeril) ??? Hypnotics (such as Ambien or Lunesta) ??? Other prescription opioids KNOW YOUR OPTIONS Talk to your health care provider about ways to manage your pain that don???t involve prescription opioids. Some of these options may actually work better and have fewer risks and side effects. Options may include: ??? Pain relievers such as acetaminophen, ibuprofen, and naproxen ??? Some medication that are also used for depression or seizures ??? Physical therapy and exercise ??? Cognitive behavioral therapy, a psychological, goal-directed approach, in which patients learn how to modify physical, behavioral, and emotional triggers of pain and stress. IF YOU ARE PRESCRIBED OPIOIDS FOR PAIN: ??? Never take opioids in greater amounts or more often than prescribed. ??? Follow up with your primary health care provider. o Work together to create a plan on how to manage your pain. o Talk about ways to help manage your pain that don???t involve prescription opioids. o Talk about any and all concerns and side effects. ??? Help prevent misuse and abuse o Never sell or share prescription opioids. o Never use another person???s prescription opioids. ??? Store prescription opioids in a secure place and out of reach of others (this may include visitors, children, friends, and family). ??? Safely dispose of unused prescription opioids: Find your community drug take-back program or your pharmacy mail-back program, or flush them down the toilet, following guidance from the Food and Drug Administration (www.fda.gov/Drugs/Resour cesForYou). ??? Visit www.cdc.gov/drug (more content not included)... Normal [facility] HEMATOLOGYOrdered By: SYSTEM SYSTEM on 06-27-2024 Basophils/100 WBC (Bld) 0.4 % Normal 0.0 - 2.0 % Remisol Heme Basophils/Leukocytes Auto (Bld) [Pure # fraction] 0.0 E9/L Normal 0.0 - 0.2 E9/L Remisol Heme Eosinophils (Bld) [#/Vol] 0.2 E9/L Normal 0.0 - 0.5 E9/L Remisol Heme Eosinophils/100 WBC (Bld) 3.6 % Normal 0.0 - 8.0 % Remisol Heme Erythrocyte distribution width (RBC) [Ratio] 14.7 % High 10.9 - 14.2 % Remisol Heme Hematocrit (Bld) [Volume fraction] 36.6 % Normal 34.0 - 46.0 % Rem[facility] Heme Hemoglobin (Bld) [Mass/Vol] 12.4 g/dL Normal 12.0 - 16.0 gm/dL Remisol Heme Lymphocytes (Bld) [#/Vol] 2.3 E9/L Normal 1.0 - 4.0 E9/L Remisol Heme Lymphocytes/100 WBC (Bld) 39.0 % Normal 14.0 - 50.0 % Remisol Heme MCH (RBC) [Entitic mass] 28.0 pg Normal 27.0 - 34.0 pg Remisol Heme MCHC (RBC) [Mass/Vol] 34.0 g/dL Normal 31.4 - 36.0 gm/dL Remisol Heme MCV (RBC) [Entitic vol] 82.4 fL Normal 80.0 - 100.0 fL Remisol Heme Monocytes (Bld) [#/Vol] 0.5 E9/L Normal 0.2 - 1.0 E9/L Remisol Heme Monocytes/100 WBC (Bld) 8.8 % Normal 4.0 - 14.0 % Remisol Heme Neutrophils (Bld) [#/Vol] 2.8 E9/L Normal 2.0 - 7.5 E9/L Remisol Heme Neutrophils/100 WBC (Bld) 48.2 % Normal 36.0 - 75.0 % [facility] Heme Platelet mean volume (Bld) [Entitic vol] 7.5 fL Normal 6.4 - 10.8 fL Remisol Heme Platelets (Bld) [#/Vol] 430.0 E9/L Normal 150. 0 - 500.0 E9/L [facility]isol Heme RBC (Bld) [#/Vol] 4.5 E12/L Normal 4.3 - 5.9 E12/L [facility] Heme WBC corrected for nucl RBC Auto (Bld) [#/Vol] 5.8 E9/L Normal 4.0 - 11.0 E9/L [facility] Heme PT & PTTon 06-27-2024 aPTT Coag (PPP) [Time] 32.9 second(s) Normal 25.1-36.5 [facility] Comment on above: Result Comment: Para [...] the same coagulation reagent and instrumentation as [facility]. Currently there are no coagulation studies available worldwide for children to 14 days, and no normal ranges. Heparin therapeutic range (represented by Anti-Factor Xa activity of 0.2 - 0.4 U/mL) corresponds to PTT of 56.6 - 109.0 sec. Performed By: #### 1 [id number] #### [facility] [address] [place] [address] INR Coag (PPP) [Relative time] 0.99 {INR} Invalid Interpretation Code [facility] Comment on above: Result Comment: INR results are specifically intended to assess patients stabilized on long-term Anticoagulation therapy suggested INR???s ???Less Intensive Anticoagulation??? 2.0 ??? 3.0 Conventional Range 3.0 ??? 4.5 Performed By: #### 1 [id number] #### [facility] [address] [place] [address] PT Coag (PPP) [Time] 11.1 second(s) Normal 9.4-12.5 [facility] Comment on above: Result Comment: 15 d ays - 4 weeks 1 - 5 months 6 -11 months 1 ??? 5 years 6 ??? 10 years 11 -17 years Mean: 11.2 (9.5 ??? 12.6) Mean: 11.0 (9.7 ??? 12.8) Mean: 11.0 (9.8 ??? 13.0) Mean: 11.3 (9.9 ??? 13.4) Mean: 11.7 (10.0 ??? 14.6) Mean: 11.8 (10.0 - 14.1) Pediatric Reference ranges were obtained from a study by Abimael London et al. prepared from 1437 samples obtained at 7 different centers using the same coagulation reagent and instrumentation as [facility]. Currently there are no coagulation studies available worldwide for children to 14 days, and no normal ranges. Performed By: #### 1 [id number] #### [facility] [address] [place] [address] Troponin 0 Hr.on 06-27-2024 Troponin HS <2.30 Low 10.10-27.1 0 [facility] Comment on above: Result Comment: The 95% CI (Confidence Interval) PPV (Positive Predictive Value) for myocardial infarction in females is 38 pg/mL, in males 51 pg/mL. The results should be used in conjunction with clinical conditions of myocardial infarction. (Access High Sensitivity Troponin I Instructions For Use, Stephy Stanton, March 2018) Performed By: #### 1 [id number] #### [facility] [address] [place] [address] U Drug Screenon 06-27-2024 Amphetamines Screen method >1000 ng/mL Ql (U) Negative Normal NEGATIVE [facility] Comment on above: Result Comment: Nega tive Cutoff: <1000 ng/mL Performed By: #### 2 [id number] #### [facility] [address] [place] [address] Barbiturates Screen Ql (U) Negative Normal NEGATIVE [facility] Comment on above: Result Comment: Nega tive Cutoff: <200 ng/mL Performed By: #### 2 [id number] #### [facility] [address] [place] [address] Benzodiazepines Ql (U) Negative Normal NEGATIVE [facility] Comment on above: Result Comment: Nega tive Cutoff: <200 ng/mL Performed By: #### 2 [id number] #### [facility] [address] [place] [address] Cannabinoids Screen Ql (U) Positive Abnormal NEGATIVE [facility] Comment on above: Result Comment: No C onfirmation Requested by Physician Result verified by repeat analysis, Unconfirmed by alternate method Critical Result called to Natali Pool by [email or web address] on 06/27/24 at 0012 Negative Cutoff: <50 ng/mL Performed By: #### 2 [id number] #### [facility] [address] [place] [address] Cocaine Ql (U) Negative Normal NEGATIVE [facility] Comment on above: Result Comment: Nega tive Cutoff: <300 ng/mL Performed By: #### 2 [id number] #### [facility] [address] [place] [address] Opiates Screen Ql (U) Negative Normal NEGATIVE [facility] Comment on above: Result Comment: Nega tive Cutoff: <300 ng/mL Performed By: #### 2 [id number] #### [facility] [address] [place] [address] Phencyclidine Screen method >25 ng/mL Ql (U) Negative Normal NEGATIVE [facility] Comment on above: Result Comment: Nega tive Cutoff: <25 ng/mL These drug screen results are to be used for medical (i.e., treatment) purposes only. Unconfirmed drug screening results must not be used for non-medical purposes (e.g., employment testing, legal testing). Performed By: #### 2 [id number] #### [facility] [address] [place] [address] U Fentanyl Negative Normal NEGATIVE [facility] Comment on above: Result Comment: Nega tive Cutoff: <5 ng/mL These drug screen results are to be used for medical (i.e., treatment) purposes only. Unconfirmed drug screening results must not be used for non-medical purposes (e.g., employment testing, legal testing). Performed By: #### 2 [id number] #### [facility] [address] [place] [address] XR Chest Single Viewon 06-27 XR Chest Single View Exam Date/Time: 06/26/2024 23:46 EST Reason for Exam: Chest pain Report IMPRESSION: NO EVIDENCE OF ACTIVE CHEST DISEASE. CLINICAL HISTORY: Chest pain. COMPARISON: 04/14/2024. COMMENT: AP portable. The heart is normal in size. The mediastinum is unremarkable. The lungs appear clear. No infiltration nor pleural effusion is evident. No significant change is noted when compared to the prior exam. Ordering Provider: Han Bolaños FINAL REPORT Dictated: 06/27/2024 10:16 am Orlando Harris M.D. Signed (Electronic Signature): 06/27/2024 10:16 am Signed by: Orlando Harris M.D. Transcribed by: GARTH Technologist: SANDY Technical Comments Radiation Dose: Ka,r in mGy = na DAP = na Normal [facility] eGFRon 06-27-2024 eGFR 108 mL/min/1.73 m2 Normal >=59 [facility] Comment on above: Performed By: #### 1 [id number] #### [facility] [address] [place] [address] CHEMISTRYOrdered By: SYSTEM SYSTEM on 06-26-2024 Amphetamines Screen method >1000 ng/mL Ql (U) NEGATIVE 8 (06/26/24 11:34 PM) Normal NEGATIVE [facility] Comment on above: Interpretive Data: N egative Cutoff: <1000 ng/mL Barbiturates Screen Ql (U) NEGATIVE 9 (06/26/24 11:34 PM) Normal NEGATIVE [facility] Comment on above: Interpretive Data: N egative Cutoff: <200 ng/mL Benzodiazepines Ql (U) NEGATIVE 1 (06/26/24 11:34 PM) Normal NEGATIVE [facility] Comment on above: Interpretive Data: N egative Cutoff: <200 ng/mL Cannabinoids Screen Ql (U) POSITIVE 6, 7 *ABN* (06/26/24 11:34 PM) Invalid Interpretation Code NEGATIVE [facility] Comment on above: Result Comment: No C onfirmation Requested by Physician Result verified by repeat analysis, Unconfirmed by alternate method Critical Result called to aNtali Pool by [facility] on 06/27/24 at 0012 Interpretive Data: N egative Cutoff: <50 ng/mL Cocaine Ql (U) NEGATIVE 2 (06/26/24 11:34 PM) Normal NEGATIVE [facility] Comment on above: Interpretive Data: N egative Cutoff: <300 ng/mL Opiates Screen Ql (U) NEGATIVE 4 (06/26/24 11:34 PM) Normal NEGATIVE [facility] Comment on above: Interpretive Data: N egative Cutoff: <300 ng/mL Phencyclidine Screen method >25 ng/mL Ql (U) NEGATIVE 5 (06/26/24 11:34 PM) Normal NEGATIVE [facility] Comment on above: Interpretive Data: N egative Cutoff: <25 ng/mL These drug screen results are to be used for medical (i.e., treatment) purposes only. Unconfirmed drug screening results must not be used for non-medical purposes (e.g., employment testing, legal testing). U Fentanyl NEGATIVE 14 (06/26/24 11:34 PM) Normal NEGATIVE [facility] Comment on above: Interpretive Data: N egative Cutoff: <5 ng/mL These drug screen results are to be used for medical (i.e., treatment) purposes only. Unconfirmed drug screening results must not be used for non-medical purposes (e.g., employment testing, legal testing). SEROLOGYOrdered By: Debby Cleveland on 06-26-2024 HCG.beta subunit (U) [Moles/Vol] Negative Normal [facility] Man Sero U BetaHcg Qualon 06-26-2024 HCG.beta subunit (U) [Moles/Vol] Negative Normal [facility] Comment on above: Performed By: #### 2 [id number] #### [facility] [address] [place] [address] UA with Cult Rflxon 06-26-20 Bilirubin Ql (U) Negative Normal Negative [facility] Comment on above: Performed By: #### 4 [id number] #### [facility] [address] [place] [address] Clarity (U) Clear Normal Clear [facility] Comment on above: Performed By: #### 4 [id number] #### [facility] [address] [place] [address] Color (U) Yellow Normal Yellow [facility] Comment on above: Result Comment: Micr oscopic readings are only performed on those samples that meet specific criteria set forth by [facility]. Performed By: #### 4 [id number] #### [facility] [address], [place] [address] Crystals.amorphous Computer assisted Ql (U) Present Abnormal [facility] Comment on above: Performed By: #### 4 [id number] #### [facility] [address] [place] [address] Epithelial cells.squamous Auto (Urine sed) [#/Area] 5-8 Invalid Interpretation Code [facility] Comment on above: Performed By: #### 4 [id number] #### [facility] [address] [place] [address] Glucose Ql (U) Negative Normal Negative [facility] Comment on above: Performed By: #### 4 [id number] #### [facility] [address] [place] [address] Hemoglobin Auto test strip (U) [Mass/Vol] Trace Abnormal Negative [facility] Comment on above: Performed By: #### 4 [id number] #### [facility] [address] [place] [address] Ketones Auto test strip Ql (U) Negative Normal Negative [facility] Comment on above: Performed By: #### 4 [id number] #### [facility] [address] [place] [address] Leukocyte esterase Auto test strip Ql (U) Negative Normal Negative [facility] Comment on above: Performed By: #### 4 [id number] #### [facility] [address] [place] [address] Mucus Auto Ql (U) 2+ CD:[id number] Abnormal Negative [facility] Comment on above: Performed By: #### 4 [id number] #### [facility] [address] [place] [address] Nitrite Auto test strip Ql (U) Negative Normal Negative [facility] Comment on above: Performed By: #### 4 [id number] #### [facility] [address] [place] [address] pH (U) 6.0 [pH] Invalid Interpretation Code 5.0-9.0 [facility] Comment on above: Performed By: #### 4 [id number] #### [facility] [address] [place] [address] Protein Ql (U) 1+ mg/dL Abnormal Negative [facility] Comment on above: Performed By: #### 4 [id number] #### [facility] [address] [place] [address] RBC Ql (U) 0-3 Normal 0-3 [facility] Comment on above: Performed By: #### 4 [id number] #### [facility] [address] [place] [address] Specific gravity (U) [Rel density] 1.031 Invalid Interpretation Code 1.005-1.03 0 [facility] Comment on above: Performed By: #### 4 [id number] #### [facility] [address] [place] [address] Urobilinogen (U) [Mass/Vol] 2 mg/dL Abnormal Negative [facility] Comment on above: Performed By: #### 4 [id number] #### [facility] [address] [place] [address] WBC Auto (Urine sed) [#/Area] 0-5 Normal 0-5 [facility] Comment on above: Performed By: #### 4 [id number] #### [facility] [address] [place] [address] Type of Urine collection method Clean Catch Normal [facility] Comment on above: Performed By: #### 4 [id number] #### [facility] [address] [place] [address] URINALYSISOrdered By: SYSTEM SYSTEM on 06-26-2024 Bilirubin Ql (U) Negative Normal Negativemg /dL [facility] UA Auto SS Clarity (U) Clear (06/26/24 11:34 PM) Normal Clear [facility] UA Auto SS Color (U) Yellow 3 (06/26/24 11:34 PM) Normal Yellow [facility] UA Auto SS Comment on above: Interpretive Data: M icroscopic readings are only performed on those samples that meet specific criteria set forth by [facility]. Crystals.amorphous Computer assisted Ql (U) Present graded/HPF Invalid Interpretation Code [facility] UA Auto SS Epithelial cells.squamous Auto (Urine sed) [#/Area] 5-8 graded/HPF Invalid Interpretation Code [facility] UA Auto SS Glucose Ql (U) Negative Normal Negativemg /dL [facility] UA Auto SS Hemoglobin Auto test strip (U) [Mass/Vol] Trace mg/dL Invalid Interpretation Code Negativemg /dL [facility] UA Auto SS Ketones Auto test strip Ql (U) Negative Normal Negativemg /dL [facility] UA Auto SS Leukocyte esterase Auto test strip Ql (U) Negative Normal NegativeLe u/uL [facility] UA Auto SS Mucus Auto Ql (U) 2+ graded/LPF Invalid Interpretation Code Negativegr aded/LPF [facility] UA Auto SS Nitrite Auto test strip Ql (U) Negative Normal Negativemg /dL [facility] UA Auto SS pH (U) 6.0 *NA* (06/26/24 11:34 PM) Invalid Interpretation Code 5.0 - 9.0 [facility] UA Auto SS Protein Ql (U) 1+ mg/dL Invalid Interpretation Code Negativemg /dL [facility] UA Auto SS RBC Ql (U) 0-3 graded/HPF Normal 0-3graded/ HPF [facility] UA Auto SS Specific gravity (U) [Rel density] 1.031 *NA* (06/26/24 11:34 PM) Invalid Interpretation Code 1.005 - 1.030 [facility] UA Auto SS Urobilinogen (U) [Mass/Vol] 2 mg/dL Invalid Interpretation Code Negativemg /dL [facility] UA Auto SS WBC Auto (Urine sed) [#/Area] 0-5 graded/HPF Normal 0-5graded/ HPF [facility] UA Auto SS URINALYSISOrdered By: Han hutchinson on 06-26-2024 UA Spec Desc Clean Catch (06/26/24 11:34 PM) Normal [facility] UA Auto SS Work Phone: Grp A Strp PCRon 05-23-2024 Group A Strep Negative Normal Negative [facility] Comment on above: Order Comment: Order Added on by Discern Rule. Result Comment: Test ing performed using DNA amplification. Performed By: #### 1 [id number] #### [facility] [address] [place] [address] Grp A Strp Intrl Ctrl Pass Normal Fis [facility] Comment on above: Order Comment: Order Added on by Discern Rule. Performed By: #### 1 [id number] #### [facility] [address] [place] [address] ED Clinical Summaryon 2023 ED Clinical Summary ED Clinical Summary [address] [address] ED Clinical Summary Person Information Name: ROSE MARY SCHNEIDER [place] Age: 18 Years : 2005 Sex: Female Language: Wallisian PCP: Fredi Ellington MD Marital Status: Single Visit Id: Visit Reason: Chills; Throat pain - Adult; Nausea; Vomiting; Cough; SORE THROAT/SOB/V/ Speciality: Acuity: 4 Enc Type: Emergency Med Service: Emergency Arrival: 05/22/2024 21:47:57 Discharge: 05/22/2024 22:41:51 LOS: 000 00:54 Checkin: 05/22/2024 21:47:57 Checkout: 05/22/2024 22:41:51 Dispo Type: Home (Routine DC) EVENTS: Event Name Event Status Request Date/Time Start Date/Time Complete Date/Time Arrive Complete 05/22/2024 21:47:57 05/22/2024 21:47:57 05/22/2024 21:47:57 Document Home Meds Request 05/22/2024 21:47:57 Triage Complete 05/22/2024 21:47:57 05/22/2024 21:55:26 05/22/2024 21:55:26 Registration Complete 05/22/2024 21:51:56 05/22/2024 21:51:56 05/22/2024 21:51:56 Reg Complete Request 05/22/2024 21:51:56 Reg Bed Request Complete 05/22/2024 21:51:56 05/22/2024 21:51:56 05/22/2024 21:51:56 Bed Assign Complete 05/22/2024 21:52:08 05/22/2024 21:52:08 05/22/2024 21:52:08 Dr Exam Complete 05/22/2024 21:52:08 05/22/2024 21:57:06 05/22/2024 21:57:06 RN Exam Complete 05/22/2024 21:52:08 05/22/2024 21:57:23 05/22/2024 21:57:23 Pending Labs Complete 05/22/2024 21:52:36 05/22/2024 22:24:17 Lab Complete 05/22/2024 21:52:36 05/22/2024 22:24:17 Swab Complete 05/22/2024 21:52:36 05/22/2024 22:24:17 Registration Request 05/22/2024 21:57:06 Dr Exam Complete 05/22/2024 22:01:08 05/22/2024 22:01:08 05/22/2024 22:01:08 Pending Labs Inlab 05/22/2024 22:19:16 05/22/2024 22:19:16 Meds Admin Complete 05/22/2024 22:28:26 05/22/2024 22:41:17 Discharge Complete 05/22/2024 22:28:54 05/22/2024 22:41:58 05/22/2024 22:41:58 Transfer Complete 05/22/2024 22:41:58 05/22/2024 22:41:58 05/22/2024 22:41:58 ADDRESS: [address] [place] [id number] PHYS DOC NOTES: MEDICAL INFORMATION: Prescriptions Given: New Medications [facility]/pharmacy #[id number], [address] [place] [address], [place] [id number], [phone] brompheniramine/dextromet horphan/PSE (Bromfed DM oral syrup) 5 Milliliter By Mouth 4 times a day as needed for cold symptoms. Refills: 0. Medications to Continue Taking That Have Changed [facility]/pharmacy #[id number], [address], [place] [id number], [phone] START: ondansetron (Zofran ODT 4 mg Tab-Dis) 1 Tablets By Mouth every 8 hours as needed Nausea/Vomiting. Refills: 0. Other Medications START: ondansetron (Zofran ODT 4 mg Tab-Dis) 1 Tablets By Mouth every 8 hours as needed Nausea/Vomiting. Refills: 0. Medications to Continue with No Changes Other Medications cetirizine (cetirizine 5 mg oral tablet) 2 Tablets By Mouth every day. clonidine (cloNIDine 0.1 mg tab) 1 Tablets By Mouth every day. pantoprazole (Protonix 40 mg tablet) PATIENT EDUCATION INFORMATION: Instructions: Upper Respiratory Infection, Adult, Molg-yb-Fzrc Follow up: With: Address: When: Fredi Ellington [address] [place] [address], [facility] [address] Business (1) In 3 days 05/25/2024 Comments: Call Dr for diagnosis based follow up DIAGNOSIS: Viral URI Normal [facility] ED Note-Physicianon 05-22-20 ED Note-Physician ED Note-Physician Basic Information Time Seen: Karl MELÉNDEZ, Alexandru Oglesby 05/22/2024 21:57 Chief Complaint Pt arrives to ed with c/o cough, chills, n/v that started approx 2 days ago. History of Present Illness A 18-year-old female reports to the emergency department with complaints of cough, chills, nausea or vomiting. Reports that started 2 days ago. She reports with her mother. Reports sister also had similar like symptoms previous in the week. Denies any allergies. Reports that the worst symptom is her sore throat. She reports has vomited a couple times. Denies any known fevers. Otherwise relatively healthy. Review of Systems No other aggravating or relieving factors no other associated symptoms no other prior treatments or complaints. Family: Reviewed and noncontributory Social: lives at home Review of systems negative unless otherwise specified in the HPI. Physical Exam Vitals & Measurements T: 36.8 ?C(Oral) HR: 110(Peripheral) RR: 16 BP: 160/98 SpO2: 97% HT: 170.18 cm WT: 115.8 kg BMI: 39.98 General: The patient appears well and in no apparent distress. Patient is resting comfortably in chair. Afebrile Skin: Warm, dry, no pallor noted. Head: Normocephalic, atraumatic Neck: No JVD Eye: PERRLA, EOMI ENT: Moist mucus membranes. Pharynx pink moist no erythema or exudates. Bilateral TMs intact with no erythema or bulging Cardiovascular: Regular rate normal peripheral perfusion Respiratory: No respiratory distress no accessory muscle use no obvious audible wheezing. Lung sounds clear Chest Wall: no deformity Musculoskeletal: normal ROM, no deformity, no swelling GI: No obvious distention soft nontender nondistended no guarding rebounding or rigidity Neurological: A&O moves all extremities equal strength and symmetry Psychiatric: Cooperative and appropriate Medical Decision Making MEDICAL DECISION MAKING Number and Complexity of Problems Differential Diagnosis: [] [facility] Data External documents reviewed: [] My EKG interpretation: [] My CT interpretation: [] My X-ray interpretation: [] My Ultrasound interpretation: [] Decision rules/scores evaluated: [] Discussed with: [] Treatment and Disposition ED Course: 18-year-old female reports to the emergency department with complaints of upper respiratory-like symptoms. These been going on for last couple of days. Reports sister had similar like symptoms as well. Exam of the patient rather benign. No acute findings. Afebrile. No acute distress. Due to concerns we did do COVID, strep, and flu swabs on the patient. These were negative. Discussed with the patient. Discussed likely acute upper respiratory infection. Discussed supportive therapy. Follow-up with your primary care provider in 3 to 5 days. If symptoms worsen, do not improve, or new symptoms arise please report back to emergency department for further evaluation. The patient was understanding and agreeable to plan moving forward. [x] The patient was diagnosed with upper respiratory infection and was not prescribed an antibiotic. [SATISFIES MIPS PERFORMANCE] [ ] The patient has competing comorbid condition within the last 12 months. The comorbid condition was [] (e.g., neutropenia, cystic fibrosis, chronic bronchitis, pulmonary edema, respiratory failure, rheumatoid lung disease). [MIPS PERFORMANCE EXCEPTION/EXCLUSION [ ] The patient is already on antibiotics, or has taken them within the last 30 days. [MIPS PERFORMANCE EXCEPTION/EXCLUSION] [ ] The patient had a competing diagnosis of [] (e.g. acute otitis media, chronic sinusitis, UTI, etc.) [MIPS PERFORMANCE EXCEPTION/EXCLUSION] [ ] The patient was diagnosed with upper respiratory infection and was prescribed or dispensed an antibiotic. [DOES NOT SATISFY MIPS PERFORMANCE] Shared decision making: [] Code status: [] Assessment/Plan Viral URI (J06.9: Acute upper respiratory infection, unspecified) Orders: brompheniramine/dextromet horphan/PSE, 5 mL, Oral, QID for cold symptoms, 200 mL, Refill(s) 0, [id number], 170.2, cm, 05/22/24 21:55:00 EDT, Height/Length Dosing, 115.8, kg, 05/22/24 21:55:00 EDT, Weight Dosing dexamethasone, 10 mg = 1 mL, Injection, Oral, Once, Stop date 05/22/24 22:28:00 EDT, STAT, Start date 05/22/24 22:28:00 EDT, [facility]- max dose 12 mg, 05/22/24 22:28:00 EDT ondansetron, 4 mg = 1 tab(s), Oral, q8hr, PRN Nausea/Vomiting, # 12 tab(s), Refills(s) 0, Pharmacy: [facility]/pharmacy #[id number], 170.2, cm, 05/22/24 21:55:00 EDT, Height/Length Dosing, 115.8, kg, 05/22/24 21:55:00 EDT, Weight Dosing Disposition Plan Patient Discharge Condition Stable Discharge Disposition To home Discharge Prescription List Prescriptions Bromfed DM oral syrup, 5 mL, Oral, QID, PRN Zofran ODT 4 mg Tab-Dis, 4 mg= 1 tab(s), Oral, q8hr, PRN Follow-up With When Contact Information Fredi Ellington In 3 days 05/25/[address] [place] [address] (more content not included)... Normal [facility] Comment on above: Result Comment: Elec tronically Signed By: Alexandru Barajas PA-C\.br\Date and Time Signed: 05/22/24 22:31 EDT\.br\Electronically Co-Signed By: Han Bolaños DO\.br\Date and Time Co-Signed: 05/22/24 23:23 EDT ED Patient Summaryon 024 ED Patient Summary ED Patient Summary [place] [id number] Patient Discharge Instructions Person Information Name: ROSE MARY SCHNEIDER Age: 18 Years Arrival Date: 05/22/2024 21:47:57 Discharge Diagnosis: Viral URI Primary Care Physician: Fredi Ellington MD Provider Information Primary Provider: Han Bolaños DO Advanced Shop Superintendent:None The exam and treatment you received in the Emergency Department were for an urgent problem and are not intended as complete care. It is important that you follow up with a doctor, nurse practitioner, or physician?s financial planning assistant for ongoing care. If your symptoms become worse or you do not improve as expected and you are unable to reach your usual health care provider, you should return to the Emergency Department. We are available 24 hours a day. ROSE MARY SCHNEIDRE has been given the following list of patient education materials, prescriptions and follow-up instructions: Follow-up Instructions: With: Address: When: Fredi Ellington [address] [place] [address], [address] [place] [phone] Business (1) In 3 days 05/25/2024 Comments: Call Dr for diagnosis based follow up In the event that this physician does not participate in your insurance network, please consult with your insurance company to find a nearby participating provider. Patient Education Materials: Upper Respiratory Infection, Adult, Vwaw-iw-Qcot A MESSAGE TO ALL PATIENTS REGARDING OPIOIDS PRESCRIPTION OPIOIDS: WHAT YOU NEED TO KNOW Prescription opioids can be used to help relieve aztlrsgn-qh-vgnshx pain and are often prescribed following a [...] with addiction, tell your health child care centre manager and ask fo (more content not included)... Normal [facility] Influenza A&B Agon 4 Influenzae A Ag Negative Normal Negative [facility] Comment on above: Performed By: #### 1 [id number] #### [facility] [address] [place] [address] Influenzae B Ag Negative Normal Negative [facility] Comment on above: Result Comment: Test sensitivity and specificity vary for age group, specimen type, antigen types, and prevalence of disease. Test results must be evaluated in conjunction with other clinical data available to the physician. Individuals who received nasally administered Influenza A vaccine may have positive test results up to 3 days after vaccination. Performed By: #### 1 [id number] #### [facility] [address] [place] [address] MICRO OTHER TESTSOrdered By: Ruth Miller on 05-22-2024 Influenzae A Ag Negative (05/22/24 10:00 PM) Normal Negative [facility] Man Sero Influenzae B Ag Negative 1 (05/22/24 10:00 PM) Normal Negative [facility] Man Sero Comment on above: Interpretive Data: T est sensitivity and specificity vary for age group, specimen type, antigen types, and prevalence of disease. Test results must be evaluated in conjunction with other clinical data available to the physician. Individuals who received nasally administered Influenza A vaccine may have positive test results up to 3 days after vaccination. Rapid COV Int NEG Ctl Pass (05/22/24 10:00 PM) Normal [facility] Man Sero Rapid COV Int POS Ctl Pass (05/22/24 10:00 PM) Normal [facility] Sero SARS-CoV+SARS-CoV-2 (COVID-19) Ag IA.rapid Ql (Resp) Not Detected 2 (05/22/24 10:00 PM) Normal Not Detected [facility] Sero Comment on above: Interpretive Data: T he Vidit Veritor System for Rapid Detection of SARS-CoV-2 is [...] be considered in the context of a patient s recent exposures, history and the presence of [...] laboratories certified under the CLIA, 42 U.S.C. 263a, that meet requirements to perform moderate, high, or waived complexity tests and at the Point of Care (POC), i.e., in patient care settings operating under a CLIA Certificate of Waiver, Certificate of Compliance, or Certificate of Accreditation. This test has been authorized only for the detection of proteins from SARS-CoV-2, not for any other viruses or pathogens; and, in the [facility], this test is only authorized for the duration of the declaration that circumstances exist justifying the authorization of emergency use of in vitro diagnostics for detection and/or diagnosis of the virus that causes COVID-19 under Section 564(b)(1) of the Act, 21 U.S.C. 360bbb-3(b)(1), unless the authorization is terminated or revoked sooner. MICRO OTHER TESTSOrdered By: Susanna Daniel on 05-22-2024 S. pyogenes Ag IA.rapid Ql (Throat) Negative (05/22/24 10:00 PM) Normal Negative [facility] Sero Rapid COVID Antigen (FT)on 05-22-2024 Rapid COV Int NEG Ctl Pass Normal [facility] Comment on above: Performed By: #### 2 [id number] #### [facility] [address] [place] [address] Rapid COV Int POS Ctl Pass Normal [facility] Comment on above: Performed By: #### 2 [id number] #### [facility] [address] [place] [address] SARS-CoV+SARS-CoV-2 (COVID-19) Ag IA.rapid Ql (Resp) Not detected Normal Not Detected [facility] Comment on above: Result Comment: The Aruspexitor? System for Rapid Detection of SARS-CoV-2 is [...] Waiver, Certificate of Compliance, or Certificate of Accreditation. This test has been authorized only for [...] or revoked sooner. Performed By: #### 2 [id number] #### [facility] [address] [place] [address] Rapid Strep w/rfxon 05-22-20 24 S. pyogenes Ag IA.rapid Ql (Throat) Negative Normal Negative [facility] Comment on above: Performed By: #### 2 [id number] #### [facility] [address] [place] [address] US Thyroidon 05-04-2024 US Thyroid Exam Date/Time: 05/02/2024 08:45 EDT Reason for Exam: E66.09;Lymph Node Report IMPRESSION: NORMAL EXAM. CLINICAL HISTORY: Enlarged thyroid. Lymph node. COMPARISONS: None available. FINDINGS: Biplanar images were obtained. The right lobe measures 3.4 cm x 1.4 cm x 1.4 cm with a volume of 3.4 cm3. The left lobe measures 3.7 cm x 1.3 cm x 1.4 cm with a volume of 3.6 cm3. The isthmus measures 0.3 cm. The thyroid gland is normal in size. Right Lobe: Unremarkable. Left Lobe: Unremarkable. No lymphadenopathy visualized. 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 :2005 Visit Date:04/25/2024 Ambulatory Visit Instructions Your Diagnosis Obesity due to excess calories Right upper quadrant pain BMI 40.0-44.9, adult Esophageal dysphagia Your Care Team Attending Physician - Zenon Hernandez MD Primary Care Physician - Fredi Ellington MD This Is Your Medications List Contact prescribing physician if questions or concerns cetirizine (cetirizine 5 mg oral tablet) clonidine (cloNIDine 0.1 mg tab) ethinyl estradiol-norethindrone (Junel Fe 08/22 oral tablet) fluoxetine (FLUoxetine 40 mg Cap) lurasidone (lurasidone 60 mg oral tablet) melatonin ondansetron (Zofran ODT 4 mg Tab-Dis) pantoprazole (Protonix 40 mg tablet) Procedures Performed Myringotomy and drainage of middle ear. Discharge Vitals Heart Rate (Peripheral) 67 Respiratory Rate 16 Blood Pressure 115/82 Height 170 cm Height 67 in Weight 115 kg Weight 253 lb BMI 39.79 What to do next You Need to Complete the Following T4 & TSH, Blood, Routine collect, 04/25/24, Order for future visit, Lab Collect, Obesity due to excess calories Right upper quadrant pain BMI 40.0-44.9, adult Esophageal dysphagia, Print Label By Order Location [facility] Bone Density DEXA, 04/25/24, Routine, Order for Future Visit, Transport Mode: Ambulatory, Reason: Other (please specify), Right upper quadrant pain History of pancreatitis, No, pp_set_radiology_subspeci hector [facility] Thyroid, 04/25/24, Routine, Order for future visit, Transport Mode: Ambulatory, Reason: Lymph Node, No, Obesity due to excess calories Right upper quadrant pain BMI 40.0-44.9, adult Esophageal dysphagia, pp_set_radiology_subspeci [facility]ctor [facility] Medications What How Much When Why Instructions Unchanged cetirizine (cetirizine 5 mg oral tablet) 2 Tablets By Mouth Every day Contact prescribing physician if questions or concerns Unchanged clonidine (cloNIDine 0.1 mg tab) 1 Tablets By Mouth Every day Contact prescribing physician if questions or concerns Unchanged ethinyl estradiol-norethindrone ( oral tablet) 28 EA, TAKE 1 TABLET BY MOUTH EVERY DAY Contact prescribing physician if questions or concerns Unchanged fluoxetine (FLUoxetine 40 mg Cap) Contact prescribing physician if questions or concerns Unchanged lurasidone (lurasidone 60 mg oral tablet) 30 EA, TAKE 1 TABLET BY ORAL ROUTE 1 TIME PER DAY WITH FOOD (AT LEAST 350 CALORIES) Contact prescribing physician if questions or concerns Unchanged melatonin Contact prescribing physician if questions or concerns Unchanged ondansetron (Zofran ODT 4 mg Tab-Dis) 1 Tablets By Mouth Every 8 hours as needed for Nausea/Vomiting Nausea Contact prescribing physician if questions or concerns Unchanged pantoprazole (Protonix 40 mg tablet) Contact prescribing physician if questions or concerns Allergies No Known Allergies Problems Ongoing - Any problem that you are currently receiving treatment for. Acute pancreatitis BMI 40.0-44.9, adult Esophageal dysphagia Family history of pancreatitis Gastroenteritis Injury of head Insomnia Obesity due to excess calories Right upper quadrant pain Smoker Historical - Any problem that you are no longer receiving treatment for. Seizure Patient Survey You may receive a survey via text or e-mail asking about your office visit. Please share your experience with us by completing your survey. We appreciate your feedback and thank you for choosing us for your care. Normal [facility] CHEMISTRYOrdered By: SYSTEM SYSTEM on 04-25-2024 T4 [Mass/Vol] 8.5 ug/dL Normal 4.6 - 9.1 mcg/dL Remisol Chem TSH Qn 2.55 m[IU]/L Normal 0.34 - 5.60 mcIU/mL Remisol Chem Gastroenterology Office/Clin ic Noteon 04-25-2024 Gastroenterology Office/Clinic Note Gastroenterology Office/Clinic Note Chief Complaint follow up to ER; abd pain, right sided HPI Staff This is a 18 year old female who presents today for a follow up from [facility] on 03/13/2024, for complaints of abdominal pain. right sided abd pain, sometimes radiates to the back. Patient also was seen at [facility] ER 03/14/2024 after taking 50 tabs of 200 mg ibuprofen. [facility] ED Note: 03/14/2024 Chief Complaint Took bottle of ibuprofen at 1915. 50 tabs of 200 mg tabs. States suicidal. States some ABD pain. History of Present Illness HPI: Patient is a 18-year-old female with past medical history of seizures and pancreatitis who presents the ED for suicide attempt. Patient states that at 1950 tonight she took 50 [id number] ibuprofen of the 200 mg strength. She states that she did not attempt to kill herself. She has had suicide attempts in the past. She denies any Co. ingestion. She has some mild upper abdominal discomfort but denies any other symptoms at this time. [facility] ER: 03/13/2024 Chief complaint: Nausea/Vomiting/Diarrhea HPI narrative: 18-year-old female presents for abdominal pain and nausea and vomiting. She states the abdominal pain started a month ago and she had a CAT scan and an ultrasound at another facility about a week ago. She threw up 6 times today. [facility]: 03/13/2024 Amylase 11 25-115 Low Lipase 36.0 16.0-77.0 Bilirubin Total 0.3 Bilirubin Direct 0.1 Aspartate Amino Transferase 23 Alanine Aminotransferase 35 Alkaline Phosphatase 50 Total Protein 6.7 Albumin Level 2.8 Globulin 3.9 Albumin Globulin Ratio 0.7 E coli: Negative Salmonella/Shigella: None recovered Campylobacter culture: No Campylobacter species isolated C Difficile PCR: Negative CT Abdomen w/ Contrast: 03/03/2024 IMPRESSION: CONSTIPATION. Dr Cantor: 02/09/2024 History of Present Illness Rose Mary Schneider is a 18-year-old female [...] the exception of a slightly elevated lipase. Assessment/Plan The patient is a 18-year-old female [...] 4. Smoker (F17.200: Nicotine dependence, unspecified, uncomplicated) Dr Hernandez: 01/22/2024 History of Present Illness pt with recent pancreatitis used to have pain and diarrhea after eating greasy food pt does not drink alcohol mother with recurrent pancreatitis s/p vianey back to regular diet Assessment/Plan 1. Acute pancreatitis (K85.90: Acute pancreatitis without necrosis or infection, unspecified) 2. Smoker (F17.200: Nicotine dependence, unspecified, uncomplicated) 3. Family history of pancreatitis (Z83.79: Family [...] workup if she continues to have flares Laboratory Results CBC CMP Basophil Absolute: 0 E9/L (03/14/24) A/G Ratio: 1.2 (03/14/24) Basophil Auto: 0.4 % (03/14/24) AGAP: 13 mEq/L (03/14/24) Eos Absolute: 0.2 E9/L (03/14/24) Albumin Lvl: 3.5 gm/dL (03/14/24) Eos Auto: 2.3 % (03/14/24) Alk Phos: 37 Int._Unit/L (03/14/24) Hct: 35.4 % (03/14/24) ALT: 19 Int._Unit/L (03/14/24) HGB: 12.2 gm/dL (03/14/24) AST: 18 Int._Unit/L (03/14/24) Lymph Absolute: 3.4 E9/L (03/14/24) Bili Total: 0.2 mg/dL (03/14/24) Lymph Auto: 52.2 % High (03/14/24) BUN: 8 mg/dL (03/14/24) MCH: 28.7 pg (03/14/24) BUN/Creat Ratio: 10 (03/14/24) MCHC: 34.3 gm/dL (03/14/24) Calcium Lvl: 8.5 mg/dL Low (03/14/24) MCV: 83.5 fL (03/14/24) Chloride: 104 mmol/L (03/14/24) Gosper Absolute: 0.6 E9/L ( (more content not included)... Normal [facility] Comment on above: Result Comment: Elec tronically Signed By: David MARCANO, Zenon Ratliff\.br\Date and Time Signed: 04/25/24 13:45 EDT T4 & TSHon 04-25-2024 TSH Qn 2.55 m[IU]/L Normal 0.34-5.60 [facility] Comment on above: Performed By: #### 1 [id number] #### [facility] [address] [place] [address] T4 [Mass/Vol] 8.5 microgram/dL Normal 4.6-9.1 [facility] Comment on above: Performed By: #### 1 [id number] #### [facility] [address] [place] [address] CT Head or Brain w/o Contras ton 04-15-2024 CT Head or Brain w/o Contrast Exam Date/Time: 04/14/2024 20:42 EDT Reason for Exam: Syncope Report Impression: No acute intracranial process. CT of the brain without intravenous contrast medium. History: Seizure. Technical factors: CT imaging of the brain was obtained and formatted as 5 mm contiguous axial images. 2.5 mm contiguous axial images were obtained through the osseous structures. Sagittal and coronal reconstruction obtained during postprocessing. Comparison: CT brain, April 06, 2021. MRI brain May 20, 2021. Findings: Extra-axial spaces: Normal. Intracranial hemorrhage: None. Ventricular system: Without anomaly. Basal Cisterns: Normal. Cerebral Parenchyma: Without anomaly. Midline Shift: None. Cerebellum: Normal. Paranasal sinuses and mastoid air cells: Normal. Visualized Orbits: Normal. All CT scans at this facility use dose modulation, iterative reconstruction, and/or weight based dosing when appropriate to reduce radiation dose to as low as reasonably achievable. Report Ordering Provider: Migue Farrell FINAL REPORT Dictated: 04/15/2024 9:40 am Theirry Mcknight MD Signed (Electronic Signature): 04/15/2024 9:40 am Signed by: Thierry Mcknight MD Transcribed by: GARTH Technologist: CARLOS Iqbal [facility] ED Note-Physicianon 04-15-20 ED Note-Physician ED Note-Physician Basic Information Time Seen: Migue Farrell M.D. 04/14/2024 20:08 Chief Complaint pt to ED with c/o fainting numerous times . seen here in ED recently with same complaint. boyfriend states patient passes out for approx 5 min and then wakes up laughing. dx with syncope last ED visit. denies other complaints. A&Ox4. History of Present Illness The patient is a 18-year-old female who presented to the emergency with her boyfriend for syncopal episodes. The patient states according to her boyfriend she was having blackouts. The boyfriend states that she kept blacking out repeatedly on and off and she was hitting her head against the wall. The boyfriend states then when she wakes up she will start laughing uncontrollably. The patient does not remember these episodes. She is complaining of mild headache and generalized bodyaches. The patient states she has chills. She denies any fever. Denies any nausea denies any vomiting. She denies any diarrhea. The patient denies any abdominal pain. She denies any shortness of breath. The patient denies any other associated symptoms. She states she had alcohol yesterday. She denies any drug use. The patient denies any other associated symptoms. Review of Systems Additional ROS info: Except as noted in the above Review of Systems and in the History of Present Illness all other systems have been reviewed and are negative or noncontributory. Physical Exam Vitals & Measurements T: 36.6 ?C(Oral) HR: 99(Peripheral) RR: 18 BP: 153/86 BP: 122/88(Standing) BP: 118/74(Supine) SpO2: 94% HT: 170 cm WT: 117.9 kg BMI: 40.8 General: alert, no acute distress Skin: warm, dry, Head: no trauma, normocephalic Neck: Trachea midline, no tenderness, supple Eye: normal conjunctiva, sclera clear, PERRL, EOMI, vision unchanged ENMT: Oral mucosa moist, no pharyngeal erythema or exudate Cardiovascular: regular rate and rhythm, Respiratory: Lungs CTA, respirations non labored, breath sounds equal, Chest wall: no deformity,notenderness Gastrointestinal: soft, non distended, no tenderness, no guarding, Extremities: no deformity, no trauma Neurological: Alert and oriented, CN II-XII intact, motor strength equal & normal bilaterally, sensation equal & normal bilaterally, speech normal, no focal neuro deficits Psychiatric: cooperative, affect appropriate for age, Medical Decision Making MEDICAL DECISION MAKING Number and Complexity of Problems Differential Diagnosis: [] [facility] Data External documents reviewed: [] My EKG interpretation: [] My CT interpretation: [] My X-ray interpretation: [] My Ultrasound interpretation: [] Decision rules/scores evaluated: [] Discussed with: [] Treatment and Disposition ED Course: The patient presented with multiple syncopal episodes according to her boyfriend. The patient has no focal neurological deficit. CT of the brain shows no acute intracranial process. Blood work reviewed unremarkable. is negative. The EKG is normal. Unclear etiology of her symptoms. Possible psychogenic. Will discharge patient home follow-up with primary care. She is instructed to return to the emergency room if her syncopal episode recurs or any new symptoms. Shared decision making: [] Code status: [] Assessment/Plan 1. Syncope (R55: Syncope and collapse) Orders: Basic Metabolic Panel CBC w/ Auto Diff CT Head or Brain w/o Contrast Drug Screen Urine ED Cardiac Monitoring eGFR Hepatic Function Panel Magnesium Level Oxygen Saturation Oxygen Therapy PT & PTT Rapid COVID Antigen ([facility]) Saline Lock Insert Troponin 0 Hr. Troponin 1 Hr. U Beta Hcg Qual UA with Cult Rflx XR Chest 2 Views Disposition Plan Patient Discharge Condition Stable Discharge Disposition Discharge home Discharge Prescription List Prescriptions No active prescription medications Follow-up With When Contact Information Fredi Ellington In 3 days 04/17/2024 EDT [address] [place] [address]- Business (1) Additional Instructions: Return to the emergency room if the syncopal episode recurs or any new symptoms Patient Education Syncope, Adult Problem List/Past Medical History Ongoing Acute pancreatitis [...] tab(s), Oral, Daily FLUoxetine 40 mg Cap June08/22 oral tablet lurasidone 60 mg oral tablet melatonin-pyridoxine 3 mg-10 mg oral tablet, extended release [place] 325 mg-5 mg ora (more content not included)... Normal [facility] Comment on above: Result Comment: Elec tronically Signed By: Migue Farrell M.D. H\.br\Date and Time Signed: 04/15/24 02:15 EDT XR Chest 2 Viewson XR Chest 2 Views Exam Date/Time: 04/14/2024 20:46 EDT Reason for Exam: Chest pain Report IMPRESSION: NO RADIOGRAPHIC EVIDENCE OF ACTIVE DISEASE IN THE CHEST. CLINICAL INFORMATION: Chest pain COMPARISON: MARCH 07, 2023 FINDINGS: Two views of the chest were obtained. Heart and mediastinum appear normal. The lungs appear clear. Visualized bony thorax and remainder of the chest appears unremarkable. Ordering Provider: Hajdari, Astrit FINAL REPORT Dictated: 04/15/2024 8:20 am Thierry Mcknight MD Signed (Electronic Signature): 04/15/2024 8:20 am Signed by: Thierry Mcknight MD Transcribed by: GARTH Technologist: CRICKET Technical Comments Radiation Dose: Ka,r in mGy = NA DAP = NA Normal [facility] BMPon 04-14-2024 Anion gap [Moles/Vol] 12 mmol/L Normal 6-16 [facility] Comment on above: Performed By: #### 2 [id number] #### [facility] [address] [place] [address] Calcium [Mass/Vol] 9.0 mg/dL Normal 8.9-11.1 [facility] Comment on above: Performed By: #### 2 [id number] #### [facility] [address] [place] [address] Chloride [Moles/Vol] 103 mmol/L Normal 101-111 [facility] Comment on above: Performed By: #### 2 [id number] #### [facility] [address] [place] [address] CO2 [Moles/Vol] 27 mmol/L Normal 21-31 [facility] Comment on above: Performed By: #### 2 [id number] #### [facility] [address] [place] [address] Creatinine [Mass/Vol] 0.9 mg/dL Normal 0.5-1.3 [facility] Comment on above: Performed By: #### 2 [id number] #### [facility] [address] [place] [address] Glucose [Mass/Vol] 90 mg/dL Normal 55-199 [facility] Comment on above: Performed By: #### 2 [id number] #### [facility] [address] [place] [address] Potassium [Moles/Vol] 3.7 mmol/L Normal 3.5-5.3 [facility] Comment on above: Performed By: #### 2 [id number] #### [facility] [address] [place] [address] Sodium [Moles/Vol] 138 mmol/L Normal 135-145 [facility] Comment on above: Performed By: #### 2 [id number] #### [facility] [address] [place] [address] Urea nitrogen [Mass/Vol] 13 mg/dL Normal 5-21 [facility] Comment on above: Performed By: #### 2 [id number] #### [facility] [address] [place] [address] Urea nitrogen/Creatinine [Mass ratio] 14 No Units Normal 10-20 [facility] Comment on above: Performed By: #### 2 [id number] #### [facility] [address] [place] [address] CBC w/ Auto Diffon 4 Basophils/100 WBC (Bld) 0.5 % Normal 0.0-2.0 [facility] Comment on above: Performed By: #### 2 [id number] #### [facility] [address] [place] [address] Basophils/Leukocytes Auto (Bld) [Pure # fraction] 0.1 E9/L Normal 0.0-0.2 [facility] Comment on above: Performed By: #### 2 [id number] #### [facility] [address] [place] [address] Eosinophils (Bld) [#/Vol] 0.6 E9/L High 0.0-0.5 [facility] Comment on above: Performed By: #### 2 [id number] #### [facility] [address] [place] [address] Eosinophils/100 WBC (Bld) 6.0 % Normal 0.0-8.0 [facility] Comment on above: Performed By: #### 2 [id number] #### [facility] [address] [place] [address] Erythrocyte distribution width (RBC) [Ratio] 13.7 % Normal 10.9-14.2 [facility] Comment on above: Performed By: #### 2 [id number] #### [facility] [address] [place] [address] Hematocrit (Bld) [Volume fraction] 36.0 % Normal 34.0-46.0 [facility] Comment on above: Performed By: #### 2 [id number] #### [facility] [address] [place] [address] Hemoglobin (Bld) [Mass/Vol] 12.1 g/dL Normal 12.0-16.0 [facility] Comment on above: Performed By: #### 2 [id number] #### [facility] [address] [place] [address] Lymphocytes (Bld) [#/Vol] 2.6 E9/L Normal 1.0-4.0 [facility] Comment on above: Performed By: #### 2 [id number] #### [facility] [address] [place] [address] Lymphocytes/100 WBC (Bld) 25.5 % Normal 14.0-50.0 [facility] Comment on above: Performed By: #### 2 [id number] #### [facility] [address] [place] [address] MCH (RBC) [Entitic mass] 28.1 pg Normal 27.0-34.0 [facility] Comment on above: Performed By: #### 2 [id number] #### [facility] [address] [place] [address] MCHC (RBC) [Mass/Vol] 33.7 g/dL Normal 31.4-36.0 [facility] Comment on above: Performed By: #### 2 [id number] #### [facility] [address] [place] [address] MCV (RBC) [Entitic vol] 83.2 fL Normal 80.0-100.0 [facility] Comment on above: Performed By: #### 2 [id number] #### [facility] [address] [place] [address] Monocytes (Bld) [#/Vol] 0.6 E9/L Normal 0.2-1.0 [facility] Comment on above: Performed By: #### 2 [id number] #### [facility] [address] [place] [address] Neutrophils (Bld) [#/Vol] 6.4 E9/L Normal 2.0-7.5 [facility] Comment on above: Performed By: #### 2 [id number] #### [facility] [address] [place] [address] Neutrophils/100 WBC (Bld) 62.5 % Normal 36.0-75.0 [facility] Comment on above: Performed By: #### 2 [id number] #### [facility] [address] [place] [address] Platelet mean volume (Bld) [Entitic vol] 7.3 fL Normal 6.4-10.8 [facility] Comment on above: Performed By: #### 2 [id number] #### [facility] [address] [place] [address] Platelets (Bld) [#/Vol] 449.0 E9/L Normal 150. 0-500. 0 [facility] Comment on above: Performed By: #### 2 [id number] #### [facility] [address] [place] [address] RBC (Bld) [#/Vol] 4.3 E12/L Normal 4.3-5.9 [facility] Comment on above: Performed By: #### 2 [id number] #### [facility] [address] [place] [address] WBC corrected for nucl RBC Auto (Bld) [#/Vol] 10.3 E9/L Normal 4.0-11.0 [facility] Comment on above: Performed By: #### 2 [id number] #### [facility] [address] [place] [address] CHEMISTRYOrdered By: SYSTEM SYSTEM on 04-14-2024 Troponin HS pg/mL Low 10.10 - 27.10 pg/mL [facility] Comment on above: Interpretive Data: Louis rivera 95% CI (Confidence Interval) PPV (Positive Predictive Value) for myocardial infarction in females is 38 pg/mL, in males 51 pg/mL. The results should be used in conjunction with clinical conditions of myocardial infarction. (Access High Sensitivity Troponin I Instructions For Use, Stephy Akhil, March 2018) Albumin [Mass/Vol] 3.8 g/dL Normal 3.3 - 5.0 gm/dL Rem[facility] Chem Albumin/Globulin [Mass ratio] 1.1 {ratio} Normal 1.1 - 2.2 [facility] ALP [Catalytic activity/Vol] 59 [iU]/d Normal 21 - 98 Int._Unit/ L [facility] Chem ALT No additional P-5'-P [Catalytic activity/Vol] 18 [iU]/d Normal 6 - 46 Int._Unit/ L [facility] Anion gap [Moles/Vol] 12 mmol/L Normal 6 - 16 mEq/L [facility] AST [Catalytic activity/Vol] 17 [iU]/d Normal 5 - 43 Int._Unit/ L [facility] Bilirubin [Mass/Vol] 0.3 mg/dL Normal 0.0 - 1 .1 mg/dL [facility] Bilirubin.direct [Mass/Vol] 0.0 mg/dL Normal 0.0 - 0.4 mg/dL [facility] Bilirubin.indirect [Mass or moles/Vol] 0.3 mg/dL Normal 0.1 - 0.9 mg/dL [facility] Calcium [Mass/Vol] 9.0 mg/dL Normal 8.9 - 11. 1 mg/dL [facility] Chloride [Moles/Vol] 103 mmol/L Normal 101 - 1 11 mmol/L [facility] CO2 [Moles/Vol] 27 mmol/L Normal 21 - 31 mmol/L [facility] Creatinine [Mass/Vol] 0.9 mg/dL Normal 0.5 - 1.3 mg/dL [facility] eGFR 94 mL/min/1.73 m2 Normal >=59mL/min /1.73 m2 [facility] Globulin (S) [Mass/Vol] 3.6 g/dL Normal 1.4 - 4.0 gm/dL [facility] Glucose [Mass/Vol] 90 mg/dL Normal 55 - 199 mg/dL [facility] Magnesium [Mass/Vol] 1.7 mg/dL Normal 1.3 - 2 .4 mg/dL [facility] Potassium [Moles/Vol] 3.7 mmol/L Normal 3.5 - 5.3 mmol/L [facility] Protein [Mass/Vol] 7.4 g/dL Normal 6.0 - 7.8 gm/dL [facility] Sodium [Moles/Vol] 138 mmol/L Normal 135 - 145 mmol/L [facility] Troponin HS 2.60 pg/mL Low 10.10 - 27.10 pg/mL [facility] Comment on above: Interpretive Data: T he 95% CI (Confidence Interval) PPV (Positive Predictive Value) for myocardial infarction in females is 38 pg/mL, in males 51 pg/mL. The results should be used in conjunction with clinical conditions of myocardial infarction. (Access High Sensitivity Troponin I Instructions For Use, Stephy [employer], March 2018) Urea nitrogen [Mass/Vol] 13 mg/dL Normal 5 - 21 mg/dL [facility] Urea nitrogen/Creatinine [Mass ratio] 14 mg/mg Normal 10 - 20 [facility] Amphetamines Screen method >1000 ng/mL Ql (U) NEGATIVE 7 (04/14/24 8:26 PM) Normal NEGATIVE [facility] Comment on above: Interpretive Data: N egative Cutoff: <1000 ng/mL Barbiturates Screen Ql (U) NEGATIVE 8 (04/14/24 8:26 PM) Normal NEGATIVE [facility] Comment on above: Interpretive Data: N egative Cutoff: <200 ng/mL Benzodiazepines Ql (U) NEGATIVE 1 (04/14/24 8:26 PM) Normal NEGATIVE [facility] Comment on above: Interpretive Data: N egative Cutoff: <200 ng/mL Cannabinoids Screen Ql (U) NEGATIVE 6 (04/14/24 8:26 PM) Normal NEGATIVE [facility] Comment on above: Interpretive Data: N egative Cutoff: <50 ng/mL Cocaine Ql (U) NEGATIVE 2 (04/14/24 8:26 PM) Normal NEGATIVE [facility] Comment on above: Interpretive Data: N egative Cutoff: <300 ng/mL Opiates Screen Ql (U) NEGATIVE 4 (04/14/24 8:26 PM) Normal NEGATIVE [facility] Comment on above: Interpretive Data: N egative Cutoff: <300 ng/mL Phencyclidine Screen method >25 ng/mL Ql (U) NEGATIVE 5 (04/14/24 8:26 PM) Normal NEGATIVE [facility] Comment on above: Interpretive Data: N egative Cutoff: <25 ng/mL These drug screen results are to be used for medical (i.e., treatment) purposes only. Unconfirmed drug screening results must not be used for non-medical purposes (e.g., employment testing, legal testing). U Fentanyl NEGATIVE 15 (04/14/24 8:26 PM) Normal NEGATIVE [facility] Comment on above: Interpretive Data: N egative Cutoff: <5 ng/mL These drug screen results are to be used for medical (i.e., treatment) purposes only. Unconfirmed drug screening results must not be used for non-medical purposes (e.g., employment testing, legal testing). COAGULATIONOrdered By: Ruth Miller on 04-14-2024 aPTT Coag (PPP) [Time] 37.7 s High 25.1 - 36.5 second(s) [facility] Auto Coag Comment on above: Interpretive Data: P arameter 15 days - 4 weeks 1 - [...] the same coagulation reagent and instrumentation as [facility]. Currently there are no coagulation studies available worldwide for children to 14 days, and no normal ranges. Heparin therapeutic range (represented by Anti-Factor Xa activity of 0.2 - 0.4 U/mL) corresponds to PTT of 56.6 - 109.0 sec. INR Coag (PPP) [Relative time] 0.97 {INR} Invalid Interpretation Code [facility] Auto Coag Comment on above: Interpretive Data: I NR results are specifically intended to assess patients stabilized on long-term Anticoagulation therapy suggested INR s Less Intensive Anticoagulation 2.0 3.0 Conventional Range 3.0 4.5 PT Coag (PPP) [Time] 10.9 s Normal 9.4 - 1 2.5 second(s) [facility] Auto Coag Comment on above: Interpretive Data: 1 5 days - 4 weeks 1 - 5 months 6 -11 months 1-5 years 6-10 years 11 -17 years Mean: 11.2 (9.5-12.6) Mean: 11.0 (9.7-12.8) Mean: 11.0 (9.8-13.0) Mean: 11.3 (9.9-13.4) Mean: 11.7 (10.0-14.6) Mean: 11.8 (10.0 - 14.1) Pediatric Reference ranges were obtained from a study by Abimael London et al. prepared from 1437 samples obtained at 7 different centers using the same coagulation reagent and instrumentation as [facility]. Currently there are no coagulation studies available worldwide for children to 14 days, and no normal ranges. ED Clinical Summaryon 2023 ED Clinical Summary ED Clinical Summary [place] [address] ED Clinical Summary Person Information Name: ROSE MARY SCHNEIDER Kimberly/[facility] Age: 18 Years : 2005 Sex: Female Language: Wallisian PCP: Fredi Ellington MD Marital Status: Single Visit Id: Visit Reason: Body aches; Syncope/Near syncope; FAINTING SPELLS, AMS Speciality: Acuity: 3 Enc Type: Emergency Med Service: Emergency Arrival: 04/14/2024 20:00:50 Discharge: 04/14/2024 22:31:15 LOS: 000 02:31 Checkin: 04/14/2024 20:00:50 Checkout: 04/14/2024 22:31:15 Dispo Type: Home (Routine DC) EVENTS: Event Name Event Status Request Date/Time Start Date/Time Complete Date/Time Arrive Complete 04/14/2024 20:00:50 04/14/2024 20:00:50 04/14/2024 20:00:50 Document Home Meds Request 04/14/2024 20:00:50 Triage Complete 04/14/2024 20:00:50 04/14/2024 20:09:00 04/14/2024 20:09:00 Bed Assign Complete 04/14/2024 20:04:09 04/14/2024 20:04:09 04/14/2024 20:04:09 Dr Exam Complete 04/14/2024 20:04:09 04/14/2024 20:08:07 04/14/2024 20:08:07 RN Exam Complete 04/14/2024 20:04:09 04/14/2024 22:22:27 04/14/2024 22:22:27 EKG Complete 04/14/2024 20:07:57 04/14/2024 20:21:39 Registration Complete 04/14/2024 20:08:07 04/14/2024 20:15:37 04/14/2024 20:15:37 Reg Complete Request 04/14/2024 20:15:37 Reg Bed Request Complete 04/14/2024 20:15:37 04/14/2024 20:15:37 04/14/2024 20:15:37 Pending Labs Complete 04/14/2024 20:20:21 04/14/2024 22:10:53 Lab Complete 04/14/2024 20:20:21 04/14/2024 21:02:10 Patient Care Request 04/14/2024 20:20:21 RT Request 04/14/2024 20:20:21 X-Ray Complete 04/14/2024 20:20:21 04/14/2024 20:34:29 04/14/2024 20:46:26 CT Complete 04/14/2024 20:20:21 04/14/2024 20:23:32 04/14/2024 20:42:37 Pending Labs Complete 04/14/2024 20:25:26 04/14/2024 21:22:18 Lab Complete 04/14/2024 20:25:26 04/14/2024 21:22:18 Pending Labs Complete 04/14/2024 20:29:05 04/14/2024 21:13:08 Lab Complete 04/14/2024 20:29:05 04/14/2024 21:13:08 Urine Collect Complete 04/14/2024 20:29:05 04/14/2024 21:13:08 Pending Labs Complete 04/14/2024 20:37:16 04/14/2024 20:37:16 04/14/2024 21:02:10 Lab Complete 04/14/2024 20:37:16 04/14/2024 20:37:16 04/14/2024 21:02:10 Wet Read Request 04/14/2024 20:46:26 Pending Labs Complete 04/14/2024 20:55:23 04/14/2024 21:03:18 Lab Complete 04/14/2024 20:55:23 04/14/2024 21:03:18 Urine Collect Complete 04/14/2024 20:55:23 04/14/2024 21:03:18 Discharge Complete 04/14/2024 22:23:45 04/14/2024 22:31:18 04/14/2024 22:31:18 Transfer Complete 04/14/2024 22:31:18 04/14/2024 22:31:18 04/14/2024 22:31:18 ADDRESS: [address] [place] [address] DR [place]ERTHA LYN [place] [id number] [facility] DOC NOTES: MEDICAL INFORMATION: Prescriptions Given: Medications to Continue with No Changes Other Medications acetaminophen-hydrocodone ([place] 325 mg-5 mg oral tablet) 1 Tablets [...] TAKE 1 TABLET BY MOUTH EVERY DAY. famotidine (Pepcid AC 10 mg oral tablet) 1 Tablets By Mouth 2 times a day as needed Pain. Refills: 0. fluoxetine (FLUoxetine 40 mg Cap) lurasidone (lurasidone 60 mg oral tablet) 30 [...] 40 mg tablet) PATIENT EDUCATION INFORMATION: Instructions: Syncope, Adult Follow up: With: Address: When: Fredi Ellington [address] [place], [place] [id number] Keek () In 3 days 04/17/2024 Comments: Return to the emergency room if the syncopal episode recurs or any new symptoms DIAGNOSIS: 1:Syncope Normal [facility] ED Patient Summaryon 024 ED Patient Summary ED Patient Summary [place] [address] Patient Discharge Instructions Person Information Name: ROSE MARY SCHNEIDER Age: 18 Years Arrival Date: 04/14/2024 20:00:50 Discharge Diagnosis: 1:Syncope Primary Care Physician: Fredi Ellington MD Provider Information Primary Provider: iMgue Farrell M.D. Advanced Shop Superintendent:None The exam and treatment you received in the Emergency Department were for an urgent problem and are not intended as complete care. It is important that you follow up with a doctor, nurse practitioner, or physician?s financial planning assistant for ongoing care. If your symptoms become worse or you do not improve as expected and you are unable to reach your usual health care provider, you should return to the Emergency Department. We are available 24 hours a day. ROSE MARY SCHNEIDER has been given the following list of patient education materials, prescriptions and follow-up instructions: Follow-up Instructions: With: Address: When: Fredi Ellington [address] [place] [id number] Business (1) In 3 days 04/17/2024 Comments: Return to the emergency room if the syncopal episode recurs or any new symptoms In the event that this physician does not participate in your insurance network, please consult with your insurance company to find a nearby participating provider. Patient Education Materials: Syncope, Adult A MESSAGE TO ALL PATIENTS REGARDING OPIOIDS PRESCRIPTION OPIOIDS: WHAT YOU NEED TO KNOW Prescription opioids can be used to help relieve mhqbiubf-rw-jnqked pain and are often prescribed following a [...] with addiction, tell your health child care centre manager an (more content not included)... Normal [facility] HEMATOLOGYOrdered By: SYSTEM SYSTEM on 04-14-2024 Basophils/100 WBC (Bld) 0.5 % Normal 0.0 - 2.0 % Remisol Heme Basophils/Leukocytes Auto (Bld) [Pure # fraction] 0.1 E9/L Normal 0.0 - 0.2 E9/L Remisol Heme Eosinophils (Bld) [#/Vol] 0.6 E9/L High 0.0 - 0.5 E9/L Remisol Heme Eosinophils/100 WBC (Bld) 6.0 % Normal 0.0 - 8.0 % Remisol Heme Erythrocyte distribution width (RBC) [Ratio] 13.7 % Normal 10.9 - 14.2 % Remisol Heme Hematocrit (Bld) [Volume fraction] 36.0 % Normal 34.0 - 46.0 % Remisol Heme Hemoglobin (Bld) [Mass/Vol] 12.1 g/dL Normal 12.0 - 16.0 gm/dL [facility]e Lymphocytes (Bld) [#/Vol] 2.6 E9/L Normal 1.0 - 4.0 E9/L [facility]e Lymphocytes/100 WBC (Bld) 25.5 % Normal 14.0 - 50.0 % Remisol Heme MCH (RBC) [Entitic mass] 28.1 pg Normal 27.0 - 34.0 pg Remisol Heme MCHC (RBC) [Mass/Vol] 33.7 g/dL Normal 31.4 - 36.0 gm/dL [facility] Heme MCV (RBC) [Entitic vol] 83.2 fL Normal 80.0 - 100.0 fL [facility] Heme Monocytes (Bld) [#/Vol] 0.6 E9/L Normal 0.2 - 1.0 E9/L [facility] Heme Monocytes/100 WBC (Bld) 5.5 % Normal 4.0 - 14.0 % Remisol Heme Neutrophils (Bld) [#/Vol] 6.4 E9/L Normal 2.0 - 7.5 E9/L [facility] Heme Neutrophils/100 WBC (Bld) 62.5 % Normal 36.0 - 75.0 % [facility] Heme Platelet mean volume (Bld) [Entitic vol] 7.3 fL Normal 6.4 - 10.8 fL [facility] Heme Platelets (Bld) [#/Vol] 449.0 E9/L Normal 150. 0 - 500.0 E9/L [facility] Heme RBC (Bld) [#/Vol] 4.3 E12/L Normal 4.3 - 5.9 E12/L [facility] WBC corrected for nucl RBC Auto (Bld) [#/Vol] 10.3 E9/L Normal 4.0 - 11.0 E9/L [facility] Heme Hep Func Panelon 04-14-2024 Albumin [Mass/Vol] 3.8 g/dL Normal 3.3-5.0 [facility] Comment on above: Performed By: #### 2 [id number] #### [facility] [address] [place] [address] Albumin/Globulin (S) [Mass conc ratio] 1.1 Normal 1.1-2.2 [facility] Comment on above: Performed By: #### 2 [id number] #### [facility] [address] [place] [address] ALP [Catalytic activity/Vol] 59 Int._Unit/L Normal 21-98 [facility] Comment on above: Performed By: #### 2 [id number] #### [facility] [address] [place] [address] ALT No additional P-5'-P [Catalytic activity/Vol] 18 Int._Unit/L Normal 6-46 [facility] Comment on above: Performed By: #### 2 [id number] #### [facility] [address] [place] [address] AST [Catalytic activity/Vol] 17 Int._Unit/L Normal 5-43 [facility] Comment on above: Performed By: #### 2 [id number] #### [facility] [address] [place] [address] Bilirubin [Mass/Vol] 0.3 mg/dL Normal 0.0-1.1 [facility] Comment on above: Performed By: #### 2 [id number] #### [facility] [address] [place] [address] Bilirubin.direct [Mass/Vol] 0.0 mg/dL Normal 0.0-0.4 [facility] Comment on above: Performed By: #### 2 [id number] #### [facility] [address] [place] [address] Bilirubin.indirect [Mass or moles/Vol] 0.3 mg/dL Normal 0.1-0.9 [facility] Comment on above: Performed By: #### 2 [id number] #### [facility] [address] [place] [address] Globulin (S) [Mass/Vol] 3.6 g/dL Normal 1.4-4.0 [facility] Comment on above: Performed By: #### 2 [id number] #### [facility] [address] [place] [address] Protein [Mass/Vol] 7.4 g/dL Normal 6.0-7.8 [facility] Comment on above: Performed By: #### 2 [id number] #### [facility] [address] [place] [address] MICRO OTHER TESTSOrdered By: Ruth Miller on 04-14-2024 Rapid COV Int NEG Ctl Pass (04/14/24 8:59 PM) Normal [facility] Man Sero Rapid COV Int POS Ctl Pass (04/14/24 8:59 PM) Normal [facility] Man Sero SARS-CoV+SARS-CoV-2 (COVID-19) Ag IA.rapid Ql (Resp) Not Detected 14 (04/14/24 8:59 PM) Normal Not Detected [facility] Man Sero Comment on above: Interpretive Data: Louis rivera Vidit Veritor System for Rapid Detection of SARS-CoV-2 is [...] be considered in the context of a patient s recent exposures, history and the presence of [...] laboratories certified under the CLIA, 42 U.S.C. 263a, that meet requirements to perform moderate, high, or waived complexity tests and at the Point of Care (POC), i.e., in patient care settings operating under a CLIA Certificate of Waiver, Certificate of Compliance, or Certificate of Accreditation. This test has been authorized only for [...] Section 564(b)(1) of the Act, 21 U.S.C. 360bbb-3(b)(1), unless the authorization is terminated or revoked sooner. Magnesiumon 04-14-2024 Magnesium [Mass/Vol] 1.7 mg/dL Normal 1.3-2.4 [facility] Comment on above: Performed By: #### 2 [id number] #### [facility] [address] [place] [address] PT & PTTon 04-14-2024 aPTT Coag (PPP) [Time] 37.7 second(s) High 25.1-36.5 [facility] Comment on above: Result Comment: Para [...] the same coagulation reagent and instrumentation as [facility]. Currently there are no coagulation studies available worldwide for children to 14 days, and no normal ranges. Heparin therapeutic range (represented by Anti-Factor Xa activity of 0.2 - 0.4 U/mL) corresponds to PTT of 56.6 - 109.0 sec. Performed By: #### 1 [id number] #### [facility] [address] [place] [address] INR Coag (PPP) [Relative time] 0.97 {INR} Invalid Interpretation Code [facility] Comment on above: Result Comment: INR results are specifically intended to assess patients stabilized on long-term Anticoagulation therapy suggested INR?s ?Less Intensive Anticoagulation? 2.0 ? 3.0 Conventional Range 3.0 ? 4.5 Performed By: #### 1 [id number] #### [facility] [address] [place] [address] PT Coag (PPP) [Time] 10.9 second(s) Normal 9.4-12.5 [facility] Comment on above: Result Comment: 15 d ays - 4 weeks 1 - 5 months 6 -11 months 1-5 years 6-10 years 11 -17 years Mean: 11.2 (9.5-12.6) Mean: 11.0 (9.7-12.8) Mean: 11.0 (9.8-13.0) Mean: 11.3 (9.9-13.4) Mean: 11.7 (10.0-14.6) Mean: 11.8 (10.0 - 14.1) Pediatric Reference ranges were obtained from a study by Abimael London et al. prepared from 1437 samples obtained at 7 different centers using the same coagulation reagent and instrumentation as [facility]. Currently there are no coagulation studies available worldwide for children to 14 days, and no normal ranges. Performed By: #### 1 [id number] #### [facility] [address] [place] [address] Rapid COVID Antigen ([facility])on 04-14-2024 Rapid COV Int NEG Ctl Pass Normal [facility] Comment on above: Performed By: #### 2 [id number] #### [facility] [address] [place] [address] Rapid COV Int POS Ctl Pass Normal [facility] Comment on above: Performed By: #### 2 [id number] #### [facility] [address] [place] [address] SARS-CoV+SARS-CoV-2 (COVID-19) Ag IA.rapid Ql (Resp) Not detected Normal Not Detected [facility] Comment on above: Result Comment: The Vidit Veritor? System for Rapid Detection of SARS-CoV-2 [...] Waiver, Certificate of Compliance, or Certificate of Accreditation. This test has been authorized only for [...] or revoked sooner. Performed By: #### 2 [id number] #### [facility] [address] [place] [address] SEROLOGYOrdered By: Ruth orellana on 04-14-2024 HCG.beta subunit (U) [Moles/Vol] Negative Normal [facility] Man Sero Troponin 0 Hr.on 04-14-2024 Troponin HS 2.60 pg/mL Low 10.10-27.1 0 [facility] Comment on above: Result Comment: The 95% CI (Confidence Interval) PPV (Positive Predictive Value) for myocardial infarction in females is 38 pg/mL, in males 51 pg/mL. The results should be used in conjunction with clinical conditions of myocardial infarction. (Access High Sensitivity Troponin I Instructions For Use, Stephy Stanton, March 2018) Performed By: #### 1 [id number] #### [facility] [address] [place] [address] Troponin 1 Hr.on 04-14-2024 Troponin HS <2.30 Low 10.10-27.1 0 [facility] Comment on above: Order Comment: 2129 Result Comment: The 95% CI (Confidence Interval) PPV (Positive Predictive Value) for myocardial infarction in females is 38 pg/mL, in males 51 pg/mL. The results should be used in conjunction with clinical conditions of myocardial infarction. (Access High Sensitivity Troponin I Instructions For Use, Stehpy Akhil, March 2018) Performed By: #### 1 [id number] #### [facility] [address] [place] [address] U BetaHcg Qualon 04-14-2024 HCG.beta subunit (U) [Moles/Vol] Negative Normal [facility] Comment on above: Performed By: #### 2 [id number] #### [facility] [address] [place] [address] U Drug Screenon 04-14-2024 Amphetamines Screen method >1000 ng/mL Ql (U) Negative Normal NEGATIVE [facility] Comment on above: Result Comment: Nega tive Cutoff: <1000 ng/mL Performed By: #### 2 [id number] #### [facility] [address] [place] [address] Barbiturates Screen Ql (U) Negative Normal NEGATIVE [facility] Comment on above: Result Comment: Nega tive Cutoff: <200 ng/mL Performed By: #### 2 [id number] #### [facility] [address] [place] [address] Benzodiazepines Ql (U) Negative Normal NEGATIVE [facility] Comment on above: Result Comment: Nega tive Cutoff: <200 ng/mL Performed By: #### 2 [id number] #### [facility] [address] [place] [address] Cannabinoids Screen Ql (U) Negative Normal NEGATIVE [facility] Comment on above: Result Comment: Nega tive Cutoff: <50 ng/mL Performed By: #### 2 [id number] #### [facility] [address] [place] [address] Cocaine Ql (U) Negative Normal NEGATIVE [facility] Comment on above: Result Comment: Nega tive Cutoff: <300 ng/mL Performed By: #### 2 [id number] #### [facility] [address] [place] [address] Opiates Screen Ql (U) Negative Normal NEGATIVE [facility] Comment on above: Result Comment: Nega tive Cutoff: <300 ng/mL Performed By: #### 2 [id number] #### [facility] [address] [place] [address] Phencyclidine Screen method >25 ng/mL Ql (U) Negative Normal NEGATIVE [facility] Comment on above: Result Comment: Nega tive Cutoff: <25 ng/mL These drug screen results are to be used for medical (i.e., treatment) purposes only. Unconfirmed drug screening results must not be used for non-medical purposes (e.g., employment testing, legal testing). Performed By: #### 2 [id number] #### [facility] [address] [place] [address] U Fentanyl Negative Normal NEGATIVE [facility] Comment on above: Result Comment: Nega tive Cutoff: <5 ng/mL These drug screen results are to be used for medical (i.e., treatment) purposes only. Unconfirmed drug screening results must not be used for non-medical purposes (e.g., employment testing, legal testing). Performed By: #### 2 [id number] #### [facility] [address] [place] [address] UA with Cult Rflxon 04-14-20 24 Bilirubin Ql (U) Negative Normal Negative [facility] Comment on above: Performed By: #### 4 [id number] #### [facility] [address] [place] [address] Clarity (U) Clear Normal Clear [facility] Comment on above: Performed By: #### 4 [id number] #### [facility] [address] [place] [address] Color (U) Light-Yellow Normal Yellow [facility] Comment on above: Result Comment: Micr oscopic readings are only performed on those samples that meet specific criteria set forth by [facility]. Performed By: #### 4 [id number] #### [facility] [address] [place] [address] Epithelial cells.squamous Auto (Urine sed) [#/Area] 5-8 Invalid Interpretation Code [facility] Comment on above: Performed By: #### 4 [id number] #### [facility] [address] [place] [address] Glucose Ql (U) Negative Normal Negative [facility] Comment on above: Performed By: #### 4 [id number] #### [facility] [address] [place] [address] Hemoglobin Auto test strip (U) [Mass/Vol] 1+ mg/dL Abnormal Negative [facility] Comment on above: Performed By: #### 4 [id number] #### [facility] [address] [place] [address] Ketones Auto test strip Ql (U) Negative Normal Negative [facility] Comment on above: Performed By: #### 4 [id number] #### [facility] [address] [place] [address] Leukocyte esterase Auto test strip Ql (U) Negative Normal Negative [facility] Comment on above: Performed By: #### 4 [id number] #### [facility] [address] [place] [address] Mucus Auto Ql (U) Trace Normal Negative [facility] Comment on above: Performed By: #### 4 [id number] #### [facility] [address] [place] [address] Nitrite Auto test strip Ql (U) Negative Normal Negative [facility] Comment on above: Performed By: #### 4 [id number] #### [facility] [address] [place] [address] pH (U) 5.5 [pH] Invalid Interpretation Code 5.0-9.0 [facility] Comment on above: Performed By: #### 4 [id number] #### [facility] [address] [place] [address] Protein Ql (U) Trace Abnormal Negative [facility] Comment on above: Performed By: #### 4 [id number] #### [facility] [address] [place] [address] RBC Ql (U) 4-20 Abnormal 0-3 [facility] Comment on above: Performed By: #### 4 [id number] #### [facility] [address] [place] [address] Specific gravity (U) [Rel density] 1.028 Invalid Interpretation Code 1.005-1.03 0 [facility] Comment on above: Performed By: #### 4 [id number] #### [facility] [address] [place] [address] Urobilinogen (U) [Mass/Vol] Negative Normal Negative [facility] Comment on above: Performed By: #### 4 [id number] #### [facility] [address] [place] [address] WBC Auto (Urine sed) [#/Area] 0-5 Normal 0-5 [facility] Comment on above: Performed By: #### 4 [id number] #### [facility] [address] [place] [address] Type of Urine collection method Clean Catch Normal [facility] Comment on above: Performed By: #### 4 [id number] #### [facility] [address] [place] [id number] URINALYSISOrdered By: SYSTEM SYSTEM on 04-14-2024 Bilirubin Ql (U) Negative Normal Negativemg /dL [facility] UA Auto SS Clarity (U) Clear (04/14/24 8:26 PM) Normal Clear [facility] UA Auto SS Color (U) Light-Yellow 3 (04/14/24 8:26 PM) Normal Yellow [facility] UA Auto SS Comment on above: Interpretive Data: M icroscopic readings are only performed on those samples that meet specific criteria set forth by [facility]. Epithelial cells.squamous Auto (Urine sed) [#/Area] 5-8 graded/HPF Invalid Interpretation Code [facility] UA Auto SS Glucose Ql (U) Negative Normal Negativemg /dL [facility] UA Auto SS Hemoglobin Auto test strip (U) [Mass/Vol] 1+ mg/dL Invalid Interpretation Code Negativemg /dL [facility] UA Auto SS Ketones Auto test strip Ql (U) Negative Normal Negativemg /dL [facility] UA Auto SS Leukocyte esterase Auto test strip Ql (U) Negative Normal NegativeLe u/uL [facility] UA Auto SS Mucus Auto Ql (U) Trace graded/LPF Normal Negati vegr aded/LPF [facility] UA Auto SS Nitrite Auto test strip Ql (U) Negative Normal Negativemg /dL [facility] UA Auto SS pH (U) 5.5 *NA* (04/14/24 8:26 PM) Invalid Interpretation Code 5.0 - 9.0 [facility] UA Auto SS Protein Ql (U) Trace mg/dL Invalid Interpretation Code Negativemg /dL [facility] UA Auto SS RBC Ql (U) 4-20 graded/HPF Invalid Interpretation Code 0-3graded/ HPF [facility] UA Auto SS Specific gravity (U) [Rel density] 1.028 *NA* (04/14/24 8:26 PM) Invalid Interpretation Code 1.005 - 1.030 [facility] UA Auto SS Urobilinogen (U) [Mass/Vol] Negative Normal Negativemg /dL [facility] UA Auto SS WBC Auto (Urine sed) [#/Area] 0-5 graded/HPF Normal 0-5graded/ HPF [facility] UA Auto SS URINALYSISOrdered By: Migue Farrell on 04-14-2024 UA Spec Desc Clean Catch (04/14/24 8:26 PM) Normal [facility] UA Auto SS eGFRon 04-14-2024 eGFR 94 mL/min/1.73 m2 Normal >=59 [facility] Comment on above: Order Comment: Order added by Discern Expert. Performed By: #### 1 [id number] #### [facility] [address] [place] [address] B hCG Qualon 04-10-2024 Beta HCG ( test) Ql Negative Normal [facility] Comment on above: Performed By: #### 2 [id number] #### [facility] [address] [place] [address] BMPon 04-10-2024 Anion gap [Moles/Vol] 12 mmol/L Normal 6-16 [facility] Comment on above: Performed By: #### 2 [id number] #### [facility] [address] [place] [address] Calcium [Mass/Vol] 8.9 mg/dL Normal 8.9-11.1 [facility] Comment on above: Performed By: #### 2 [id number] #### [facility] [address] [place] [address] Chloride [Moles/Vol] 101 mmol/L Normal 101-111 [facility] Comment on above: Performed By: #### 2 [id number] #### [facility] [address] [place] [address] CO2 [Moles/Vol] 27 mmol/L Normal 21-31 [facility] Comment on above: Performed By: #### 2 [id number] #### [facility] [address] [place] [address] Creatinine [Mass/Vol] 0.8 mg/dL Normal 0.5-1.3 [facility] Comment on above: Performed By: #### 2 [id number] #### [facility] [address] [place] [address] Glucose [Mass/Vol] 92 mg/dL Normal 55-199 [facility] Comment on above: Performed By: #### 2 [id number] #### [facility] [address] [place] [address] Potassium [Moles/Vol] 3.6 mmol/L Normal 3.5-5.3 [facility] Comment on above: Performed By: #### 2 [id number] #### [facility] [address] [place] [address] Sodium [Moles/Vol] 136 mmol/L Normal 135-145 [facility] Comment on above: Performed By: #### 2 [id number] #### [facility] [address] [place] [address] Urea nitrogen [Mass/Vol] 15 mg/dL Normal 5-21 [facility] Comment on above: Performed By: #### 2 [id number] #### [facility] [address] [place] [address] Urea nitrogen/Creatinine [Mass ratio] 19 No Units Normal 10-20 [facility] Comment on above: Performed By: #### 2 [id number] #### [facility] [address] [place] [address] CBC w/ Auto Diffon 4 Basophils/100 WBC (Bld) 0.6 % Normal 0.0-2.0 [facility] Comment on above: Performed By: #### 2 [id number] #### [facility] [address] [place] [address] Basophils/Leukocytes Auto (Bld) [Pure # fraction] 0.1 E9/L Normal 0.0-0.2 [facility] Comment on above: Performed By: #### 2 [id number] #### [facility] [address] [place] [address] Eosinophils (Bld) [#/Vol] 0.3 E9/L Normal 0.0-0.5 [facility] Comment on above: Performed By: #### 2 [id number] #### [facility] [address] [place] [address] Eosinophils/100 WBC (Bld) 2.6 % Normal 0.0-8.0 [facility] Comment on above: Performed By: #### 2 [id number] #### [facility] [address] [place] [address] Erythrocyte distribution width (RBC) [Ratio] 13.9 % Normal 10.9-14.2 [facility] Comment on above: Performed By: #### 2 [id number] #### [facility] [address] [place] [address] Hematocrit (Bld) [Volume fraction] 36.4 % Normal 34.0-46.0 [facility] Comment on above: Performed By: #### 2 [id number] #### [facility] [address] [place] [address] Hemoglobin (Bld) [Mass/Vol] 12.1 g/dL Normal 12.0-16.0 [facility] Comment on above: Performed By: #### 2 [id number] #### [facility] [address] [place] [address] Lymphocytes (Bld) [#/Vol] 3.2 E9/L Normal 1.0-4.0 [facility] Comment on above: Performed By: #### 2 [id number] #### [facility] [address] [place] [address] Lymphocytes/100 WBC (Bld) 25.9 % Normal 14.0-50.0 [facility] Comment on above: Performed By: #### 2 [id number] #### [facility] [address] [place] [address] MCH (RBC) [Entitic mass] 27.4 pg Normal 27.0-34.0 [facility] Comment on above: Performed By: #### 2 [id number] #### [facility] [address] [place] [address] MCHC (RBC) [Mass/Vol] 33.1 g/dL Normal 31.4-36.0 [facility] Comment on above: Performed By: #### 2 [id number] #### [facility] [address] [place] [address] MCV (RBC) [Entitic vol] 82.7 fL Normal 80.0-100.0 [facility] Comment on above: Performed By: #### 2 [id number] #### [facility] [address] [place] [address] Monocytes (Bld) [#/Vol] 0.9 E9/L Normal 0.2-1.0 [facility] Comment on above: Performed By: #### 2 [id number] #### [facility] [address] [place] [address] Neutrophils (Bld) [#/Vol] 8.0 E9/L High 2.0-7.5 [facility] Comment on above: Performed By: #### 2 [id number] #### [facility] [address] [place] [address] Neutrophils/100 WBC (Bld) 63.6 % Normal 36.0-75.0 [facility] Comment on above: Performed By: #### 2 [id number] #### [facility] [address] [place] [address] Platelet mean volume (Bld) [Entitic vol] 8.3 fL Normal 6.4-10.8 [facility] Comment on above: Performed By: #### 2 [id number] #### [facility] [address] [place] [address] Platelets (Bld) [#/Vol] 452.0 E9/L Normal 150. 0-500. 0 [facility] Comment on above: Performed By: #### 2 [id number] #### [facility] [address] [place] [address] RBC (Bld) [#/Vol] 4.4 E12/L Normal 4.3-5.9 [facility] Comment on above: Performed By: #### 2 [id number] #### [facility] [address] [place] [address] WBC corrected for nucl RBC Auto (Bld) [#/Vol] 12.5 E9/L High 4.0-11.0 [facility] Comment on above: Performed By: #### 2 [id number] #### [facility] [address] [place] [address] CHEMISTRYOrdered By: SYSTEM SYSTEM on 04-10-2024 Anion gap [Moles/Vol] 12 mmol/L Normal 6 - 16 mEq/L Remisol Chem Calcium [Mass/Vol] 8.9 mg/dL Normal 8.9 - 11. 1 mg/dL Remisol Chem Chloride [Moles/Vol] 101 mmol/L Normal 101 - 1 11 mmol/L Remisol Chem CO2 [Moles/Vol] 27 mmol/L Normal 21 - 31 mmol/L Remisol Chem Creatinine [Mass/Vol] 0.8 mg/dL Normal 0.5 - 1.3 mg/dL Remisol Chem eGFR 109 mL/min/1.73 m2 Normal >=59mL/mi n /1.73 m2 Remisol Chem Glucose [Mass/Vol] 92 mg/dL Normal 55 - 199 mg/dL Remisol Chem Magnesium [Mass/Vol] 1.9 mg/dL Normal 1.3 - 2 .4 mg/dL Remisol Chem Potassium [Moles/Vol] 3.6 mmol/L Normal 3.5 - 5.3 mmol/L Remisol Chem Sodium [Moles/Vol] 136 mmol/L Normal 135 - 145 mmol/L Remisol Chem Troponin HS 3.10 pg/mL Low 10.10 - 27.10 pg/mL [facility] Chem Comment on above: Interpretive Data: T he 95% CI (Confidence Interval) PPV (Positive Predictive Value) for myocardial infarction in females is 38 pg/mL, in males 51 pg/mL. The results should be used in conjunction with clinical conditions of myocardial infarction. (Access High Sensitivity Troponin I Instructions For Use, Stephy Stanton, March 2018) Urea nitrogen [Mass/Vol] 15 mg/dL Normal 5 - 21 mg/dL Remisol Chem Urea nitrogen/Creatinine [Mass ratio] 19 mg/mg Normal 10 - 20 Remisol Chem ED Clinical Summaryon 2023 ED Clinical Summary ED Clinical Summary [place] [id number] ED Clinical Summary Person Information Name: ROSE MARY SCHNEIDER/[facility] Age: 18 Years : 2005 Sex: Female Language: Wallisian PCP: Fredi Ellington MD Marital Status: Single Visit Id: Visit Reason: Medical problem - minor; LIGHTHEADED, THINK SHE BLACKED OUT 20 MINS AGO Speciality: Acuity: 4 Enc Type: Emergency Med Service: Emergency Arrival: 04/10/2024 04:28:55 Discharge: 04/10/2024 06:46:08 LOS: 000 02:18 Checkin: 04/10/2024 04:28:55 Checkout: 04/10/2024 06:46:08 Dispo Type: Home (Routine DC) EVENTS: Event Name Event Status Request Date/Time Start Date/Time Complete Date/Time Arrive Complete 04/10/2024 04:28:55 04/10/2024 04:28:55 04/10/2024 04:28:55 Document Home Meds Request 04/10/2024 04:28:55 Triage Complete 04/10/2024 04:28:55 04/10/2024 04:39:01 04/10/2024 04:39:01 Dr Exam Complete 04/10/2024 04:30:48 04/10/2024 04:30:48 04/10/2024 04:30:48 Registration Complete 04/10/2024 04:30:48 04/10/2024 04:39:06 04/10/2024 06:19:28 Bed Assign Complete 04/10/2024 04:39:06 04/10/2024 04:39:06 04/10/2024 04:39:06 RN Exam Complete 04/10/2024 04:39:06 04/10/2024 04:50:13 04/10/2024 04:50:13 Pending Labs Complete 04/10/2024 04:44:27 04/10/2024 06:25:54 Lab Complete 04/10/2024 04:44:27 04/10/2024 06:18:17 EKG Complete 04/10/2024 04:44:27 04/10/2024 04:49:53 Meds Admin Request 04/10/2024 04:44:27 Pending Labs Complete 04/10/2024 05:37:23 04/10/2024 05:37:23 04/10/2024 06:18:17 Lab Complete 04/10/2024 05:37:23 04/10/2024 05:37:23 04/10/2024 06:18:17 Reg Complete Request 04/10/2024 06:19:28 Reg Bed Request Complete 04/10/2024 06:19:28 04/10/2024 06:19:28 04/10/2024 06:19:28 Discharge Complete 04/10/2024 06:31:44 04/10/2024 06:46:14 04/10/2024 06:46:14 Transfer Complete 04/10/2024 06:46:14 04/10/2024 06:46:14 04/10/2024 06:46:14 ADDRESS: [address] [id number] PHYS DOC NOTES: MEDICAL INFORMATION: Prescriptions Given: Medications to Continue with No Changes Other Medications acetaminophen-hydrocodone ([place] 325 mg-5 mg oral tablet) 1 Tablets [...] 40 mg tablet) PATIENT EDUCATION INFORMATION: Instructions: Syncope, Adult, Eqez-br-Ywje Follow up: With: Address: When: Fredi Ellington [address] [place] [address], [address] [place] [phone] Business (1) In 3 days 04/13/2024 Comments: Follow-up with your primary care doctor for further evaluation and management. Please return to the ED for any new or worsening symptoms. DIAGNOSIS: Syncope Normal [facility] ED Note-Physicianon 04-10-20 ED Note-Physician ED Note-Physician Basic Information Time Seen: Ko Draper DO 04/10/2024 04:30 Chief Complaint pt to ED c/o passing out . boyfriend states pt would pass out and then wake up laughing . pt also reports trying to go to bed. pt denies complaints or pains. boyfriend wants pt checked out. pt denies drugs or alcohol. History of Present Illness Patient is a 18-year-old female with history of nonepileptic seizures, depression presenting to the ED for evaluation of reported unresponsive episodes. Patient's boyfriend states that she will wake up and then passed out be out for several minutes and then will wake up laughing and doing this again. Patient complaining of numbness and tingling throughout her body denies recent illness, fevers, chills, chest pain or shortness of breath. Review of Systems A 10 point review of systems is negative except as noted above. Medical and Surgical History: Reviewed and noted Social history: Lives at home Tobacco: Denies Physical Exam Vitals & Measurements T: 36.8 ?C(Oral) HR: 103(Peripheral) RR: 16 BP: 116/73 SpO2: 97% HT: 170 cm WT: 117.0 kg BMI: 40.48 General: Well developed, non toxic appearing, no acute distress HEENT: Head atraumatic, Mucosa moist, hearing grossly normal Neck: No JVD, tracheal deviation Cardiac: Regular rate, rhythm, no murmurs, or gallops, 2+ radial pulses Respiratory: Lungs clear to auscultation B/L, normal respiratory effort Abdomen: Soft non tender, no rebound or guarding, no peritoneal signs Extremities: No edema noted in the LE B/L, no tenderness to palpation Neurologic: Alert and oriented, speech clear Skin: No rashes or lesions Psych: Appropriate mood and behavior Medical Decision Making MEDICAL DECISION MAKING Number and Complexity of Problems Differential Diagnosis: [] [facility] Data External documents reviewed: [] My EKG interpretation: [] My CT interpretation: [] My X-ray interpretation: [] My Ultrasound interpretation: [] Decision rules/scores evaluated: [] Discussed with: [] Treatment and Disposition ED Course: Patient is a 18-year-old female history of nonepileptic seizures presenting to the ED for evaluation of unresponsive episodes. Patient nontoxic and on arrival, no acute stress. No deficits noted on examination. Basic laboratory evaluation is obtained, IV fluids ordered. Patient's laboratory evaluation is unremarkable, troponin is negative. Discussed findings with patient believe she is stable for discharge home. She is follow-up with her primary care doctor next 2 to 3 days for further evaluation management. She is to return to the ED for any new or worsening symptoms. Shared decision making: [] Code status: [] Assessment/Plan Syncope (R55: Syncope and collapse) Orders: Sodium Chloride 0.9% intravenous solution 1,000 mL, 1,000 mL, IV, 983.61 mL/hr, for 30 day(s), Stop date 05/10/24 4:43:00 EDT, STAT, Start date 04/10/24 4:44:00 EDT, 61 minute(s), Total volume (mL): 1,000, 117 kg, 2.35, m2 Basic Metabolic Panel Beta hCG Qual CBC w/ Auto Diff ECG 12 Lead Adult eGFR Magnesium Level Troponin 0 Hr. Medications Administered Given Sodium Chloride 0.9% IV Britney 1000 mL 1,000 mL, 1000 mL, IV Disposition Plan Discharge Prescription List Prescriptions No active prescription medications Follow-up With When Contact Information Fredi Ellington In 3 days 04/13/2024 EDT [address] [place] [phone]- Business (1) Additional Instructions: Follow-up with your primary care doctor for further evaluation and management. Please return to the ED for any new or worsening symptoms. Patient Education Syncope, Adult, Dgpk-iy-Oslo Problem List/Past Medical History Ongoing Acute pancreatitis [...] 3 mg-10 mg oral tablet, extended release [place] 325 mg-5 mg oral tablet, 1 tab(s), [...] Family history is negative Lab Results WBC: 12.5 E9/L High (04/10/24 05:37:00) RBC: 4.4 E12/L (04/10/24 05:37:00) HGB: (more content not included)... Normal [facility] Comment on above: Result Comment: Elec tronically Signed By: Ko Draper DO\.br\Date and Time Signed: 04/10/24 06:32 EDT ED Patient Summaryon 024 ED Patient Summary ED Patient Summary [address] [address] Patient Discharge Instructions Person Information Name: ROSE MARY SCHNEIDER Age: 18 Years Arrival Date: 04/10/2024 04:28:55 Discharge Diagnosis: Syncope Primary Care Physician: Fredi Ellington MD Provider Information Primary Provider: Ko Draper DO Advanced Shop Superintendent:None The exam and treatment you received in the Emergency Department were for an urgent problem and are not intended as complete care. It is important that you follow up with a doctor, nurse practitioner, or physician?s financial planning assistant for ongoing care. If your symptoms become worse or you do not improve as expected and you are unable to reach your usual health care provider, you should return to the Emergency Department. We are available 24 hours a day. ROSE MARY SCHNEIDER has been given the following list of patient education materials, prescriptions and follow-up instructions: Follow-up Instructions: With: Address: When: Fredi Ellington [address] [place] [address], [address] [place] [phone] Business (1) In 3 days 04/13/2024 Comments: Follow-up with your primary care doctor for further evaluation and management. Please return to the ED for any new or worsening symptoms. In the event that this physician does not participate in your insurance network, please consult with your insurance company to find a nearby participating provider. Patient Education Materials: Syncope, Adult, Wuxy-gk-Xuzu A MESSAGE TO ALL PATIENTS REGARDING OPIOIDS PRESCRIPTION OPIOIDS: WHAT YOU NEED TO KNOW Prescription opioids can be used to help relieve yfkftctm-bm-kgifay pain and are often prescribed following a [...] overdose. ? If you believe you may (more content not included)... Normal [facility] HEMATOLOGYOrdered By: SYSTEM SYSTEM on 04-10-2024 Basophils/100 WBC (Bld) 0.6 % Normal 0.0 - 2.0 % Remisol Heme Basophils/Leukocytes Auto (Bld) [Pure # fraction] 0.1 E9/L Normal 0.0 - 0.2 E9/L Remisol Heme Eosinophils (Bld) [#/Vol] 0.3 E9/L Normal 0.0 - 0.5 E9/L Remisol Heme Eosinophils/100 WBC (Bld) 2.6 % Normal 0.0 - 8.0 % Remisol Heme Erythrocyte distribution width (RBC) [Ratio] 13.9 % Normal 10.9 - 14.2 % Remisol Heme Hematocrit (Bld) [Volume fraction] 36.4 % Normal 34.0 - 46.0 % Remisol Heme Hemoglobin (Bld) [Mass/Vol] 12.1 g/dL Normal 12.0 - 16.0 gm/dL Remisol Heme Lymphocytes (Bld) [#/Vol] 3.2 E9/L Normal 1.0 - 4.0 E9/L Remisol Heme Lymphocytes/100 WBC (Bld) 25.9 % Normal 14.0 - 50.0 % Remisol Heme MCH (RBC) [Entitic mass] 27.4 pg Normal 27.0 - 34.0 pg Remisol Heme MCHC (RBC) [Mass/Vol] 33.1 g/dL Normal 31.4 - 36.0 gm/dL Remisol Heme MCV (RBC) [Entitic vol] 82.7 fL Normal 80.0 - 100.0 fL Remisol Heme Monocytes (Bld) [#/Vol] 0.9 E9/L Normal 0.2 - 1.0 E9/L Remisol Heme Monocytes/100 WBC (Bld) 7.3 % Normal 4.0 - 14.0 % Remisol Heme Neutrophils (Bld) [#/Vol] 8.0 E9/L High 2.0 - 7.5 E9/L Remisol Heme Neutrophils/100 WBC (Bld) 63.6 % Normal 36.0 - 75.0 % Remisol Heme Platelet mean volume (Bld) [Entitic vol] 8.3 fL Normal 6.4 - 10.8 fL Remisol Heme Platelets (Bld) [#/Vol] 452.0 E9/L Normal 150. 0 - 500.0 E9/L Remisol Heme RBC (Bld) [#/Vol] 4.4 E12/L Normal 4.3 - 5.9 E12/L Remisol Heme WBC corrected for nucl RBC Auto (Bld) [#/Vol] 12.5 E9/L High 4.0 - 11.0 E9/L Remisol Heme Magnesiumon 04-10-2024 Magnesium [Mass/Vol] 1.9 mg/dL Normal 1.3-2.4 [facility] Comment on above: Performed By: #### 2 [id number] #### [facility] [address] [place] [address] SEROLOGYOrdered By: Lio Sherman on 04-10-2024 Beta HCG ( test) Ql Negative (04/10/24 5:37 AM) Normal [facility] Man Sero Troponin 0 Hr.on 04-10-2024 Troponin HS 3.10 pg/mL Low 10.10-27.1 0 [facility] Comment on above: Result Comment: The 95% CI (Confidence Interval) PPV (Positive Predictive Value) for myocardial infarction in females is 38 pg/mL, in males 51 pg/mL. The results should be used in conjunction with clinical conditions of myocardial infarction. (Access High Sensitivity Troponin I Instructions For Use, Stephy Akhil, March 2018) Performed By: #### 1 [id number] #### [facility] [address] [place] [address] eGFRon 04-10-2024 eGFR 109 mL/min/1.73 m2 Normal >=59 [facility] Comment on above: Order Comment: Order added by Discern Expert. Performed By: #### 1 [id number] #### [facility] [address] [place] [address] C Urineon 03-16-2024 Bacteria identified Cx Nom (U) Microbiology PROCEDURE: Urine Culture [R1] SOURCE: U CleanCatch BODY SITE: COLLECTED DATE/TIME: 03/14/2024 22:22 EDT RECEIVED DATE/TIME: 03/14/2024 23:41 EDT START DATE/TIME: 03/14/2024 23:41 EDT FREE TEXT SOURCE: Han Bolaños DO, DO, Noah S. FINAL REPORTS Final Report [] Verified Date/Time: 03/16/2024 09:28 EDT 1,000 cfu/ml Mixed skin contaminants Performing Locations R1: This test was performed at: [facility], [address] [place] [address], [id number], [facility] Comment on above: Performed By: #### 2 [id number] #### [facility] [address] [place] [address] ED Clinical Summaryon 2023 ED Clinical Summary ED Clinical Summary [address] [address] ED Clinical Summary Person Information Name: ROSE MARY SCHNEIDER Kimberly/[facility] Age: 18 Years : 2005 Sex: Female Language: Wallisian PCP: Fredi Ellington MD Marital Status: Single Visit Id: Visit [...] 03/15/2024 01:10:59 03/15/2024 01:10:59 03/15/2024 01:10:59 ADDRESS: [address] [place] [id number] [facility] DOC NOTES: MEDICAL INFORMATION: Prescriptions Given: Medications to Continue with No Changes Other Medications acetaminophen-hydrocodone ([place] 325 mg-5 mg oral tablet) 1 Tablets [...] Help Yourself Follow up: With: Address: When: [facility] In 1 day 03/16/2024 With: Address: When: Fredi Ellington [address] [facility], [address] [place] [phone] Business (1) In 3 days DIAGNOSIS: Ibuprofen overdose Normal [facility] ED Note-Physicianon 03-15-20 ED Note-Physician ED Note-Physician Basic Information Time Seen: Han Bolaños DO 03/14/2024 21:47 Chief Complaint Took bottle of ibuprofen at 1915. 50 tabs of 200 mg tabs. States suicidal. States some ABD pain. History of Present Illness HPI: Patient is a 18-year-old female with past medical history of seizures and pancreatitis who presents the ED for suicide attempt. Patient states that at 1950 tonight she took 50 xhqi-ndc-lkyczmt ibuprofen of the 200 mg strength. She [...] and Complexity of Problems Differential Diagnosis: [] [facility] Data External documents reviewed: N/A My [...] safety plan of the patient with outpatient follow-up with for psychiatry. Patient remained stable here [...] prescription medications Follow-up With When Contact Information [facility] In 1 day 03/16/2024 EDT Additional Instructions: Fredi Ellington In 3 days [address] [place] [address]- [facility] (1) Additional Instructions: Patient Education Suicidal Feelings: [...] 3 mg-10 mg oral tablet, extended release [place] 325 mg-5 mg oral tablet, 1 tab(s), [...] Lymph Auto: 52.2 % High (03/14/24 22:04:00) Gosper Auto: 9.6 % (03/14/24 22:04:00) Eos Auto: 2.3 % (03/14/24 22:04:00) Basophil Auto: 0.4 % (03/14/24 22:04:00) Neutro (more content not included)... Normal [facility] Comment on above: Result Comment: Elec tronically Signed By: Han Bolaños DO\.br\Date and Time Signed: 03/15/24 00:56 EDT ED Patient Summaryon 024 ED Patient Summary ED Patient Summary [place] [id number] Patient Discharge Instructions Person Information Name: ROSE MARY SCHNEIDER Age: 18 Years Arrival Date: 03/14/2024 21:06:23 Discharge Diagnosis: Ibuprofen overdose Primary Care Physician: Fredi Ellington MD Provider Information Primary Provider: Han Bolaños DO Advanced Shop Superintendent:None The exam and treatment you received in the Emergency Department were for an urgent problem and are not intended as complete care. It is important that you follow up with a doctor, nurse practitioner, or physician?s financial planning assistant for ongoing care. If your symptoms become worse or you do not improve as expected and you are unable to reach your usual health care provider, you should return to the Emergency Department. We are available 24 hours a day. ROSE MARY SCHNEIDER has been given the following list of patient education materials, prescriptions and follow-up instructions: Follow-up Instructions: With: Address: When: [facility] In 1 day 03/16/2024 With: Address: When: Fredi Ellington [address] [place] [address], [facility] [address] [place] [phone] [facility] (1) In 3 days In the event that this physician does not participate in your insurance network, please consult with your insurance company to find a nearby participating provider. Patient Education Materials: Suicidal Feelings: How to Help Yourself A MESSAGE TO ALL PATIENTS REGARDING OPIOIDS PRESCRIPTION OPIOIDS: WHAT YOU NEED TO KNOW Prescription opioids can be used to help relieve ktjcswzr-jy-gslsfn pain and are often prescribed following a [...] struggling with addiction, tell your health care pr (more content not included)... Normal [facility] Acetamnphn Lvlon 03-14-2024 Acetaminoph Lvl <.1 Low 15.0-30.0 [facility] Comment on above: Performed By: #### 2 [id number] #### [facility] [address] [place] [address] CBC w/ Auto Diffon 4 Basophils/100 WBC (Bld) 0.4 % Normal 0.0-2.0 [facility] Comment on above: Performed By: #### 2 [id number] #### [facility] [address] [place] [address] Basophils/Leukocytes Auto (Bld) [Pure # fraction] 0.0 E9/L Normal 0.0-0.2 [facility] Comment on above: Performed By: #### 2 [id number] #### [facility] [address] [place] [address] Eosinophils (Bld) [#/Vol] 0.2 E9/L Normal 0.0-0.5 [facility] Comment on above: Performed By: #### 2 [id number] #### [facility] [address] [place] [address] Eosinophils/100 WBC (Bld) 2.3 % Normal 0.0-8.0 [facility] Comment on above: Performed By: #### 2 [id number] #### [facility] [address] [place] [address] Erythrocyte distribution width (RBC) [Ratio] 13.8 % Normal 10.9-14.2 [facility] Comment on above: Performed By: #### 2 [id number] #### [facility] [address] [place] [address] Hematocrit (Bld) [Volume fraction] 35.4 % Normal 34.0-46.0 [facility] Comment on above: Performed By: #### 2 [id number] #### [facility] [address] [place] [address] Hemoglobin (Bld) [Mass/Vol] 12.2 g/dL Normal 12.0-16.0 [facility] Comment on above: Performed By: #### 2 [id number] #### [facility] [address] [place] [address] Lymphocytes (Bld) [#/Vol] 3.4 E9/L Normal 1.0-4.0 [facility] Comment on above: Performed By: #### 2 [id number] #### [facility] [address] [place] [address] Lymphocytes/100 WBC (Bld) 52.2 % High 14.0-50.0 [facility] Comment on above: Performed By: #### 2 [id number] #### [facility] [address] [place] [address] MCH (RBC) [Entitic mass] 28.7 pg Normal 27.0-34.0 [facility] Comment on above: Performed By: #### 2 [id number] #### [facility] [address] [place] [address] MCHC (RBC) [Mass/Vol] 34.3 g/dL Normal 31.4-36.0 [facility] Comment on above: Performed By: #### 2 [id number] #### [facility] [address] [place] [address] MCV (RBC) [Entitic vol] 83.5 fL Normal 80.0-100.0 [facility] Comment on above: Performed By: #### 2 [id number] #### [facility] [address] [place] [address] Monocytes (Bld) [#/Vol] 0.6 E9/L Normal 0.2-1.0 [facility] Comment on above: Performed By: #### 2 [id number] #### [facility] [address] [place] [address] Neutrophils (Bld) [#/Vol] 2.3 E9/L Normal 2.0-7.5 [facility] Comment on above: Performed By: #### 2 [id number] #### [facility] [address] [place] [address] Neutrophils/100 WBC (Bld) 35.5 % Low 36.0-75.0 [facility] Comment on above: Performed By: #### 2 [id number] #### [facility] [address] [place] [address] Platelet 404.0 E9/L Normal 150.0-500. 0 [facility] Comment on above: Performed By: #### 2 [id number] #### [facility] [address] [place] [address] Platelet mean volume (Bld) [Entitic vol] 7.4 fL Normal 6.4-10.8 [facility] Comment on above: Performed By: #### 2 [id number] #### [facility] [address] [place] [id number] RBC (Bld) [#/Vol] 4.2 E12/L Low 4.3-5.9 [facility] Comment on above: Performed By: #### 2 [id number] #### [facility] [address] [place] [id number] WBC corrected for nucl RBC Auto (Bld) [#/Vol] 6.4 E9/L Normal 4.0-11.0 [facility] Comment on above: Performed By: #### 2 [id number] #### [facility] [address] [place] [id number] CHEMISTRYOrdered By: SYSTEM SYSTEM on 03-14-2024 Amphetamines Screen method >1000 ng/mL Ql (U) NEGATIVE 7 (03/14/24 10:22 PM) Normal NEGATIVE [facility] Comment on above: Interpretive Data: N egative Cutoff: <1000 ng/mL Barbiturates Screen Ql (U) NEGATIVE 8 (03/14/24 10:22 PM) Normal NEGATIVE [facility] Comment on above: Interpretive Data: N egative Cutoff: <200 ng/mL Benzodiazepines Ql (U) NEGATIVE 1 (03/14/24 10:22 PM) Normal NEGATIVE [facility] Comment on above: Interpretive Data: N egative Cutoff: <200 ng/mL Cannabinoids Screen Ql (U) NEGATIVE 6 (03/14/24 10:22 PM) Normal NEGATIVE [facility] Comment on above: Interpretive Data: N egative Cutoff: <50 ng/mL Cocaine Ql (U) NEGATIVE 2 (03/14/24 10:22 PM) Normal NEGATIVE [facility] Comment on above: Interpretive Data: N egative Cutoff: <300 ng/mL Opiates Screen Ql (U) NEGATIVE 4 (03/14/24 10:22 PM) Normal NEGATIVE [facility] Comment on above: Interpretive Data: N egative Cutoff: <300 ng/mL Phencyclidine Screen method >25 ng/mL Ql (U) NEGATIVE 5 (03/14/24 10:22 PM) Normal NEGATIVE [facility] Comment on above: Interpretive Data: N egative Cutoff: <25 ng/mL These drug screen results are to be used for medical (i.e., treatment) purposes only. Unconfirmed drug screening results must not be used for non-medical purposes (e.g., employment testing, legal testing). U Fentanyl NEGATIVE 9 (03/14/24 10:22 PM) Normal NEGATIVE [facility] Comment on above: Interpretive Data: N egative Cutoff: <5 ng/mL These drug screen results are to be used for medical (i.e., treatment) purposes only. Unconfirmed drug screening results must not be used for non-medical purposes (e.g., employment testing, legal testing). Acetaminoph Lvl microgram/mL Low 15.0 - 30.0 mcg/mL [facility] Albumin [Mass/Vol] 3.5 g/dL Normal 3.3 - 5.0 gm/dL [facility] Albumin/Globulin [Mass ratio] 1.2 {ratio} Normal 1.1 - 2.2 [facility] ALP [Catalytic activity/Vol] 37 [iU]/d Normal 21 - 98 Int._Unit/ L [facility] ALT No additional P-5'-P [Catalytic activity/Vol] 19 [iU]/d Normal 6 - 46 Int._Unit/ L [facility] Anion gap [Moles/Vol] 13 mmol/L Normal 6 - 16 mEq/L [facility] AST [Catalytic activity/Vol] 18 [iU]/d Normal 5 - 43 Int._Unit/ L [facility] Bilirubin [Mass/Vol] 0.2 mg/dL Normal 0.0 - 1 .1 mg/dL [facility] Calcium [Mass/Vol] 8.5 mg/dL Low 8.9 - 11. 1 mg/dL [facility] Chloride [Moles/Vol] 104 mmol/L Normal 101 - 1 11 mmol/L [facility] CO2 [Moles/Vol] 25 mmol/L Normal 21 - 31 mmol/L [facility] Creatinine [Mass/Vol] 0.8 mg/dL Normal 0.5 - 1.3 mg/dL [facility] eGFR 109 mL/min/1.73 m2 Normal >=59mL/mi n /1.73 m2 [facility] Ethanol Lvl mg/dL Normal <=11mg/dL [facility] Globulin (S) [Mass/Vol] 3.0 g/dL Normal 1.4 - 4.0 gm/dL [facility] Glucose [Mass/Vol] 86 mg/dL Normal 55 - 199 mg/dL [facility] Potassium [Moles/Vol] 3.7 mmol/L Normal 3.5 - 5.3 mmol/L [facility] Protein [Mass/Vol] 6.5 g/dL Normal 6.0 - 7.8 gm/dL [facility] Salicylate Lvl mg/dL Low 6 - 29 mg/dL [facility] Sodium [Moles/Vol] 138 mmol/L Normal 135 - 145 mmol/L [facility] Urea nitrogen [Mass/Vol] 8 mg/dL Normal 5 - 21 mg/dL [facility] Urea nitrogen/Creatinine [Mass ratio] 10 mg/mg Normal 10 - 20 [facility] CMPon 03-14-2024 Albumin [Mass/Vol] 3.5 g/dL Normal 3.3-5.0 [facility] Comment on above: Performed By: #### 2 [id number] #### [facility] [address] [place] [address] Albumin/Globulin (S) [Mass conc ratio] 1.2 Normal 1.1-2.2 [facility] Comment on above: Performed By: #### 2 [id number] #### [facility] [address] [place] [address] ALP [Catalytic activity/Vol] 37 Int._Unit/L Normal 21-98 [facility] Comment on above: Performed By: #### 2 [id number] #### [facility] [address] [place] [address] ALT No additional P-5'-P [Catalytic activity/Vol] 19 Int._Unit/L Normal 6-46 [facility] Comment on above: Performed By: #### 2 [id number] #### [facility] [address] [place] [address] Anion gap [Moles/Vol] 13 mmol/L Normal 6-16 [facility] Comment on above: Performed By: #### 2 [id number] #### [facility] [address] [place] [address] AST [Catalytic activity/Vol] 18 Int._Unit/L Normal 5-43 [facility] Comment on above: Performed By: #### 2 [id number] #### [facility] [address] [place] [address] Bilirubin [Mass/Vol] 0.2 mg/dL Normal 0.0-1.1 [facility] Comment on above: Performed By: #### 2 [id number] #### [facility] [address] [place] [address] Calcium [Mass/Vol] 8.5 mg/dL Low 8.9-11.1 [facility] Comment on above: Performed By: #### 2 [id number] #### [facility] [address] [place] [address] Chloride [Moles/Vol] 104 mmol/L Normal 101-111 [facility] Comment on above: Performed By: #### 2 [id number] #### [facility] [address] [place] [address] CO2 [Moles/Vol] 25 mmol/L Normal 21-31 [facility] Comment on above: Performed By: #### 2 [id number] #### [facility] [address] [place] [address] Creatinine [Mass/Vol] 0.8 mg/dL Normal 0.5-1.3 [facility] Comment on above: Performed By: #### 2 [id number] #### [facility] [address] [place] [address] Globulin (S) [Mass/Vol] 3.0 g/dL Normal 1.4-4.0 [facility] Comment on above: Performed By: #### 2 [id number] #### [facility] [address] [place] [address] Glucose [Mass/Vol] 86 mg/dL Normal 55-199 [facility] Comment on above: Performed By: #### 2 [id number] #### [facility] [address] [place] [address] Potassium [Moles/Vol] 3.7 mmol/L Normal 3.5-5.3 [facility] Comment on above: Performed By: #### 2 [id number] #### [facility] [address] [place] [address] Protein [Mass/Vol] 6.5 g/dL Normal 6.0-7.8 [facility] Comment on above: Performed By: #### 2 [id number] #### [facility] [address] [place] [address] Sodium [Moles/Vol] 138 mmol/L Normal 135-145 [facility] Comment on above: Performed By: #### 2 [id number] #### [facility] [address] [place] [address] Urea nitrogen [Mass/Vol] 8 mg/dL Normal 5-21 [facility] Comment on above: Performed By: #### 2 [id number] #### [facility] [address] [place] [address] Urea nitrogen/Creatinine [Mass ratio] 10 No Units Normal 10-20 [facility] Comment on above: Performed By: #### 2 [id number] #### [facility] [address] [place] [address] Ethanolon 03-14-2024 Ethanol Lvl <10 Normal <=11 [facility] Comment on above: Performed By: #### 2 [id number] #### [facility] [address] [place] [address] HEMATOLOGYOrdered By: SYSTEM SYSTEM on 03-14-2024 Basophils/100 WBC (Bld) 0.4 % Normal 0.0 [...] % [facility] Hematocrit (Bld) [Volume fraction] 35.4 % Normal 34.0 - 46.0 % [facility] Hemoglobin (Bld) [Mass/Vol] 12.2 g/dL Normal 12.0 - 16.0 gm/dL [facility] Lymphocytes (Bld) [#/Vol] 3.4 E9/L Normal 1.0 - 4.0 E9/L [facility] Lymphocytes/100 WBC (Bld) 52.2 % High 14.0 - 50.0 % [facility] MCH (RBC) [Entitic mass] 28.7 pg Normal 27.0 - 34.0 pg [facility] MCHC (RBC) [Mass/Vol] 34.3 g/dL Normal 31.4 - 36.0 gm/dL [facility] MCV (RBC) [Entitic vol] 83.5 fL Normal 80.0 - 100.0 fL [facility] Monocytes (Bld) [#/Vol] 0.6 E9/L Normal 0.2 - 1.0 E9/L [facility] Monocytes/100 WBC (Bld) 9.6 % Normal 4.0 - 14.0 % [facility] Neutrophils (Bld) [#/Vol] 2.3 E9/L Normal 2.0 - 7.5 E9/L [facility] Neutrophils/100 WBC (Bld) 35.5 % Low 36.0 - 75.0 % [facility] Platelet 404.0 E9/L Normal 150.0 - 500.0 E9/L [facility] Platelet mean volume (Bld) [Entitic vol] 7.4 fL Normal 6.4 - 10.8 fL [facility] RBC (Bld) [#/Vol] 4.2 E12/L Low 4.3 - 5.9 E12/L [facility] WBC corrected for nucl RBC Auto (Bld) [#/Vol] 6.4 E9/L Normal 4.0 - 11.0 E9/L [facility] - Microbiology an d Antimicrobial susceptibilityOrdered By: Yolanda Renee on 03-14-2024 Bacteria identified Cx Nom (U) No growth to date [facility] SEROLOGYOrdered By: Debby Cleveland on 03-14-2024 HCG.beta subunit (U) [Moles/Vol] Negative Normal [facility] Man Sero Salicylateon 03-14-2024 Salicylate Lvl <2 Low 6-29 [facility] Comment on above: Performed By: #### 2 [id number] #### [facility] [address] [place] [address] U BetaHcg Qualon 03-14-2024 HCG.beta subunit (U) [Moles/Vol] Negative Normal [facility] Comment on above: Performed By: #### 2 [id number] #### [facility] [address] [place] [address] U Drug Screenon 03-14-2024 Amphetamines Screen method >1000 ng/mL Ql (U) Negative Normal NEGATIVE [facility] Comment on above: Result Comment: Nega tive Cutoff: <1000 ng/mL Performed By: #### 2 [id number] #### [facility] [address] [place] [address] Barbiturates Screen Ql (U) Negative Normal NEGATIVE [facility] Comment on above: Result Comment: Nega tive Cutoff: <200 ng/mL Performed By: #### 2 [id number] #### [facility] [address] [place] [address] Benzodiazepines Ql (U) Negative Normal NEGATIVE [facility] Comment on above: Result Comment: Nega tive Cutoff: <200 ng/mL Performed By: #### 2 [id number] #### [facility] [address] [place] [address] Cannabinoids Screen Ql (U) Negative Normal NEGATIVE [facility] Comment on above: Result Comment: Nega tive Cutoff: <50 ng/mL Performed By: #### 2 [id number] #### [facility] [address] [place] [address] Cocaine Ql (U) Negative Normal NEGATIVE [facility] Comment on above: Result Comment: Nega tive Cutoff: <300 ng/mL Performed By: #### 2 [id number] #### [facility] [address] [place] [address] Opiates Screen Ql (U) Negative Normal NEGATIVE [facility] Comment on above: Result Comment: Nega tive Cutoff: <300 ng/mL Performed By: #### 2 [id number] #### [facility] [address] [place] [address] Phencyclidine Screen method >25 ng/mL Ql (U) Negative Normal NEGATIVE [facility] Comment on above: Result Comment: Nega tive Cutoff: <25 ng/mL These drug screen results are to be used for medical (i.e., treatment) purposes only. Unconfirmed drug screening results must not be used for non-medical purposes (e.g., employment testing, legal testing). Performed By: #### 2 [id number] #### [facility] [address] [place] [address] U Fentanyl Negative Normal NEGATIVE [facility] Comment on above: Result Comment: Nega tive Cutoff: <5 ng/mL These drug screen results are to be used for medical (i.e., treatment) purposes only. Unconfirmed drug screening results must not be used for non-medical purposes (e.g., employment testing, legal testing). Performed By: #### 2 [id number] #### [facility] [address] [place] [address] UA with Cult Rflxon 03-14-20 24 Bilirubin Ql (U) Negative Normal Negative [facility] Comment on above: Performed By: #### 4 [id number] #### [facility] [address] [place] [address] Clarity (U) Clear Normal Clear [facility] Comment on above: Performed By: #### 4 [id number] #### [facility] [address] [place] [address] Color (U) Light-Yellow Normal Yellow [facility] Comment on above: Result Comment: Micr oscopic readings are only performed on those samples that meet specific criteria set forth by [facility]. Performed By: #### 4 [id number] #### [facility] [address] [place] [address] Epithelial cells.squamous Auto (Urine sed) [#/Area] 5-8 Invalid Interpretation Code [facility] Comment on above: Performed By: #### 4 [id number] #### [facility] [address] [place] [address] Glucose Ql (U) Negative Normal Negative [facility] Comment on above: Performed By: #### 4 [id number] #### [facility] [address] [place] [address] Hemoglobin Auto test strip (U) [Mass/Vol] Negative Normal Negative [facility] Comment on above: Performed By: #### 4 [id number] #### [facility] [address] [place] [address] Hyaline casts LM Ql (Urine sed) 0-3 Normal 0-3 [facility] Comment on above: Performed By: #### 4 [id number] #### [facility] [address] [place] [address] Ketones Auto test strip Ql (U) 1+ mg/dL Abnormal Negative [facility] Comment on above: Performed By: #### 4 [id number] #### [facility] [address] [place] [address] Leukocyte esterase Auto test strip Ql (U) 75 Uzair/uL Abnormal Negative [facility] Comment on above: Performed By: #### 4 [id number] #### [facility] [address] [place] [address] Mucus Auto Ql (U) Negative Normal Negative [facility] Comment on above: Performed By: #### 4 [id number] #### [facility] [address] [place] [address] Nitrite Auto test strip Ql (U) Negative Normal Negative [facility] Comment on above: Performed By: #### 4 [id number] #### [facility] [address] [place] [address] pH (U) 6.0 [pH] Invalid Interpretation Code 5.0-9.0 [facility] Comment on above: Performed By: #### 4 [id number] #### [facility] [address] [place] [address] Protein Ql (U) Trace Abnormal Negative [facility] Comment on above: Performed By: #### 4 [id number] #### [facility] [address] [place] [address] RBC Ql (U) 0-3 Normal 0-3 [facility] Comment on above: Performed By: #### 4 [id number] #### [facility] [address] [place] [address] Specific gravity (U) [Rel density] 1.036 Invalid Interpretation Code 1.005-1.03 0 [facility] Comment on above: Performed By: #### 4 [id number] #### [facility] [address] [place] [address] Urobilinogen (U) [Mass/Vol] Negative Normal Negative [facility] Comment on above: Performed By: #### 4 [id number] #### [facility] [address] [place] [address] WBC Auto (Urine sed) [#/Area] 0-5 Normal 0-5 [facility] Comment on above: Performed By: #### 4 [id number] #### [facility] [address] [place] [address] Type of Urine collection method Clean Catch Normal [facility] Comment on above: Performed By: #### 4 [id number] #### [facility] [address] [place] [address] URINALYSISOrdered By: Lady Cleveland on 03-14-2024 Bilirubin Ql (U) Negative Normal Negativemg /dL [facility] UA Auto SS Clarity (U) Clear (03/14/24 10:22 PM) Normal Clear [facility] UA Auto SS Color (U) Light-Yellow 3 (03/14/24 10:22 PM) Normal Yellow [facility] UA Auto SS Comment on above: Interpretive Data: M icroscopic readings are only performed on those samples that meet specific criteria set forth by [facility]. Epithelial cells.squamous Auto (Urine sed) [#/Area] 5-8 graded/HPF Invalid Interpretation Code [facility] UA Auto SS Glucose Ql (U) Negative Normal Negativemg /dL [facility] UA Auto SS Hemoglobin Auto test strip (U) [Mass/Vol] Negative (03/14/24 10:22 PM) Normal Negative [facility] UA Auto SS Hyaline casts LM Ql (Urine sed) 0-3 graded/LPF Normal 0-3graded/ LPF [facility] UA Auto SS Ketones Auto test strip Ql (U) 1+ mg/dL Invalid Interpretation Code Negativemg /dL [facility] UA Auto SS Leukocyte esterase Auto test strip Ql (U) 75 Uzair/uL *ABN* (03/14/24 10:22 PM) Invalid Interpretation Code Negative [facility] UA Auto SS Mucus Auto Ql (U) Negative (03/14/24 10:22 PM) Normal Negative [facility] UA Auto SS Nitrite Auto test strip Ql (U) Negative Normal Negativemg /dL [facility] UA Auto SS pH (U) 6.0 *NA* (03/14/24 10:22 PM) Invalid Interpretation Code 5.0 - 9.0 [facility] UA Auto SS Protein Ql (U) Trace mg/dL Invalid Interpretation Code Negativemg /dL [facility] UA Auto SS RBC Ql (U) 0-3 graded/HPF Normal 0-3graded/ HPF [facility] UA Auto SS Specific gravity (U) [Rel density] 1.036 *NA* (03/14/24 10:22 PM) Invalid Interpretation Code 1.005 - 1.030 [facility] UA Auto SS Urobilinogen (U) [Mass/Vol] Negative Normal Negativemg /dL [facility] UA Auto SS WBC Auto (Urine sed) [#/Area] 0-5 graded/HPF Normal 0-5graded/ HPF [facility] UA Auto SS URINALYSISOrdered By: Han hutchinson on 03-14-2024 UA Spec Desc Clean Catch (03/14/24 10:22 PM) Normal [facility] UA Auto SS Work Phone: eGFRon 03-14-2024 eGFR 109 mL/min/1.73 m2 Normal >=59 [facility] Comment on above: Order Comment: Order added by Discern Expert. Performed By: #### 1 [id number] #### [facility] [address] [place] [address] CT Abdomen w/ Contraston CT Abdomen w/ [...] Oral contrast amount in ml's: 900 Normal [facility] CHEMISTRYOrdered By: SYSTEM SYSTEM on 03-03-2024 [...] Chem Triglyceride [Mass/Vol] 173 mg/dL High <=149mg/dL R em[facility] Chem CHEMISTRYOrdered By: Tiesha Newby on 03-03-2024 HbA1c (Bld) [Mass fraction] 5.3 % Normal <=5.9% [facility] ChemAutoSS Glu Fastingon 03-03-2024 Glucose [Mass/Vol] 91 mg/dL Normal 55-99 [facility] Comment on above: Performed By: #### 2 [id number] #### [facility] [address] [place] [address] [id number] 03-03-2024 HbA1c (Bld) [Mass fraction] 5.3 % Normal <=5.9 [facility] Comment on above: Performed By: #### 7 [id number] #### [facility] [address] [place] [address] Lipid Panelon 03-03-2024 Cholesterol [Mass/Vol] 225 mg/dL High 120-200 [facility] Comment on above: Performed By: #### 2 [id number] #### [facility] [address] [place] [address] Cholesterol in HDL [Mass/Vol] 53 mg/dL Invalid Interpretation Code [facility] Comment on above: Result Comment: '>= 60 LOW RISK' '<= 40 HIGH RISK' Performed By: #### 2 [id number] #### [facility] [address] [facility] [address] Cholesterol in LDL [Mass/Vol] 165 mg/dL High <=129 [facility] Comment on above: Performed By: #### 2 [id number] #### [facility] [address] [facility] [place] [address] Cholesterol in VLDL [Mass/Vol] 35 mg/dL Normal 7-40 [facility] Comment on above: Performed By: #### 2 [id number] #### [facility] [address] [facility] [address] Triglyceride [Mass/Vol] 173 mg/dL High <=149 [facility] Comment on above: Performed By: #### 2 [id number] #### [facility] [address] [facility] [place] [address] Vitamin D 25 Hydroxyon 03-03 25-hydroxyvitamin D3 [Mass/Vol] 18.5 ng/mL Low 30.0-100.0 [facility] Comment on above: Performed By: #### 5 [id number] #### [facility] [address] [facility] [address] US Gallbladderon 02-17-2024 US Gallbladder Exam Date/Time: [...] Mika Devine Transcribed by: GARTH Technologist: [facility] General Surgery Office/Clini c Noteon 02-09-2024 General Surgery Office/Clinic Note General Surgery Office/Clinic Note 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 female here for surgical consult Dr. Hernandez referring Patient has a hx of pancreatitis and family hx of pancreatitis. Last flare up CT abd/pel done 01/13/2024 She is having right sided pain History of Present Illness Consent: The patient or their guardian verbally consented to allow [employer] to record this visit. Rose Mary Schneider [...] with voice recognition artificial intelligence software, specifically [employer] and or [employer]. Substitutions may have occurred due to the inherent limitations of voice recognition and artificial intelligence software. ATTESTATION: Documentation services were performed after patient or guardian consented to allow [employer] to record this visit. CORINNE polymer specialist and provider reviewed before signing. CORINNE: [...] mg Cap 08/04 (more content not included)... Normal [facility] Comment on above: Result Comment: Elec tronically Signed By: Radha Cantor MD\.br\Date and Time Signed: 02/09/24 16:26 EDT\.br\Electronically Co-Signed By: Kelsie Bill\.br\Date and Time Co-Signed: 02/09/24 15:44 EDT Ambulatory Visit Summaryon 0 01-22-2024 Ambulatory Visit Summary LUIS SCHNEIDERBakari Stokes :2005 Visit Date:01/22/2024 Ambulatory Visit Instructions Your Diagnosis Acute pancreatitis Smoker Family history of pancreatitis Your Care Team Attending Physician - David MARCANO, Zenon Ratliff Primary Care Physician - Fredi Ellington MD This Is Your Medications List Contact prescribing physician if questions or concerns APAP/butalbital/caffeine (APAP/butalbital/caffeine 325 mg-50 mg-40 mg Tab) acetaminophen-hydrocodone ([place] 325 mg-5 mg oral tablet) cetirizine (cetirizine 5 mg oral tablet) clonidine (cloNIDine 0.1 mg tab) ethinyl estradiol-norethindrone (Junel Fe 1/20 oral tablet) famotidine (Pepcid AC 10 mg [...] Reason: Pancreatitis, No, No, Acute pancreatitis Normal [facility] Gastroenterology Office/Clin ic Noteon 01-22-2024 Gastroenterology Office/Clinic Note Chief Complaint follow up to er, abdominal pain, pancreatitis HPI Staff This is a 18 year old female who presents today for a follow up from [facility] ER on 01/12/2024 and 01/13/2024 abdominal pain, generalized abd pain [facility] ED: 01/13/2024 Chief Complaint seen here yesterday told she was just shy of pancreatitis. states abdominal pain worse. 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 Discharge Prescription List Prescriptions [place] 325 mg-5 mg oral tablet, 1 tab(s), Oral, q6hr, PRN Pepcid AC 10 mg oral tablet, 10 mg= 1 tab(s), Oral, BID, PRN [facility] ED: 01/12/2024 Chief Complaint abd pain all [...] 84.7 fL (01/13/24) Chloride: 105 mmol/L (01/13/24) Gosper Absolute: 0.5 E9/L (01/13/24) CO2: 27 mmol/L (01/13/24) Gosper Auto: 7.4 % (01/13/24) Creatinine: 0.8 mg/dL [...] drink alcohol mother with recurrent pancreatitis s/p vianey back to regular diet Review of Systems [...] soft, nontender (more content not included)... Normal [facility] Comment on above: Result Comment: Elec [...] against CT imaging as it will not exchange teller. Patient will be sent home with pain [...] Nausea/Vomiting, # 12 tab(s), Refills(s) 0, Pharmacy: [facility] #[id number], 165.1, cm, 01/12/24 15:00:00 EDT, Height/Length Dosing, 117.7, kg, 01/12/24 15:00:00 EDT, Weight Dosing 3. Elevated lipase (R74.8: Abnormal levels of other serum enzymes) Ordered: tram (more content not included)... Normal [facility] Comment on above: Result Comment: Elec [...] Contrast amount in ml's: 100 Normal [facility] ED Note-Physicianon 01-14-20 ED Note-Physician Basic Information Time Seen: Mirella Camilo PA-C 01/13/2024 18:36 Chief Complaint seen here yesterday told she was just shy of pancreatitis. states abdominal pain worse. 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 The patient is being discharged with [place] and Pepcid for pain management. Patient states [...] Pain, # 30 tab(s), Refills(s) 0, Pharmacy: [id number], 165.1, cm, 01/13/24 18:35:00 EDT, [...] Discharge Disposition home Discharge Prescription List Prescriptions [place] 325 mg-5 mg oral tablet, 1 tab(s), Oral, q6hr, PRN Pepcid AC 10 mg oral tablet, 10 mg= 1 tab(s), Oral, BID, PRN Follow- (more content not included)... Normal [facility] [facility] Comment on above: Result Comment: Elec tronically Signed By: Mirella Camilo PA-C\.br\Date and Time Signed: 01/13/24 21:12 EDT\.br\Electronically Co-Signed By: Mirella Camilo PA-C\.br\Date and Time Co-Signed: 01/14/24 00:04 EDT\.br\Electronically Co-Signed By: Migue Farrell M.D.\.br\Date and Time Co-Signed: 01/14/24 07:02 EDT BMPon 01-13-2024 Anion gap [Moles/Vol] 9 mmol/L Normal 6-16 [facility] Comment on above: Performed By: #### 2 [id number] #### [facility] [address] [address] Calcium [Mass/Vol] 8.6 mg/dL Low 8.9-11.1 [facility] Comment on above: Performed By: #### 2 315159 #### [facility] [address] [place] [address] Chloride [Moles/Vol] 105 mmol/L Normal 101-111 [facility] Comment on above: Performed By: #### 2 733896 #### [facility] [address] [place] [address] CO2 [Moles/Vol] 27 mmol/L Normal 21-31 [facility] Comment on above: Performed By: #### 2 401898 #### [facility] [address] [place] [address] Creatinine [Mass/Vol] 0.8 mg/dL Normal 0.5-1.3 [facility] Comment on above: Performed By: #### 2 337190 #### [facility] [address] [place] [address] Glucose [Mass/Vol] 96 mg/dL Normal 55-199 [facility] Comment on above: Performed By: #### 2 154452 #### [facility] [address] [place] [address] Potassium [Moles/Vol] 3.6 mmol/L Normal 3.5-5.3 [facility] Comment on above: Performed By: #### 2 244389 #### [facility] [address] [place] [address] Sodium [Moles/Vol] 137 mmol/L Normal 135-145 [facility] Comment on above: Performed By: #### 2 915905 #### [facility] [address] [place] [address] Urea nitrogen [Mass/Vol] 9 mg/dL Normal 5-21 [facility] Comment on above: Performed By: #### 2 148810 #### [facility] [address] [place] [address] Urea nitrogen/Creatinine [Mass ratio] 11 No Units Normal 10-20 [facility] Comment on above: Performed By: #### 2 670126 #### [facility] [address] [place] [address] CBC w/ Auto Diffon 4 Basophils/100 WBC (Bld) 0.6 % Normal 0.0-2.0 [facility] Comment on above: Performed By: #### 2 405248 #### [facility] [address] [place] [address] Basophils/Leukocytes Auto (Bld) [Pure # fraction] 0.0 E9/L Normal 0.0-0.2 [facility] Comment on above: Performed By: #### 2 265003 #### [facility] [address] [place] [address] Eosinophils (Bld) [#/Vol] 0.2 E9/L Normal 0.0-0.5 [facility] Comment on above: Performed By: #### 2 862516 #### [facility] [address] [place] [address] Eosinophils/100 WBC (Bld) 2.6 % Normal 0.0-8.0 [facility] Comment on above: Performed By: #### 2 475343 #### [facility] [address] [place] [address] Erythrocyte distribution width (RBC) [Ratio] 13.8 % Normal 10.9-14.2 [facility] Comment on above: Performed By: #### 2 [id number] #### [facility] [address] [place] [address] Hematocrit (Bld) [Volume fraction] 35.6 % Normal 34.0-46.0 [facility] Comment on above: Performed By: #### 2 240120 #### [facility] [address] [place] [address] Hemoglobin (Bld) [Mass/Vol] 11.8 g/dL Low 12.0-16.0 [facility] Comment on above: Performed By: #### 2 [id number] #### [facility] [address] [place] [address] Lymphocytes (Bld) [#/Vol] 2.9 E9/L Normal 1.0-4.0 [facility] Comment on above: Performed By: #### 2 516802 #### [facility] [address] [place] [address] Lymphocytes/100 WBC (Bld) 40.4 % Normal 14.0-50.0 [facility] Comment on above: Performed By: #### 2 892375 #### [facility] [address] [place] [address] MCH (RBC) [Entitic mass] 28.0 pg Normal 27.0-34.0 [facility] Comment on above: Performed By: #### 2 257823 #### [facility] [address] [place] [address] MCHC (RBC) [Mass/Vol] 33.1 g/dL Normal 31.4-36.0 [facility] Comment on above: Performed By: #### 2 548771 #### [facility] [address] [place] [address] MCV (RBC) [Entitic vol] 84.7 fL Normal 80.0-100.0 [facility] Comment on above: Performed By: #### 2 475357 #### [facility] [address] [place] [address] Monocytes (Bld) [#/Vol] 0.5 E9/L Normal 0.2-1.0 [facility] Comment on above: Performed By: #### 2 834767 #### [facility] [address] [place] [address] Neutrophils (Bld) [#/Vol] 3.5 E9/L Normal 2.0-7.5 [facility] Comment on above: Performed By: #### 2 276176 #### [facility] [address] [place] [address] Neutrophils/100 WBC (Bld) 49.0 % Normal 36.0-75.0 [facility] Comment on above: Performed By: #### 2 026431 #### [facility] [address] [place] [address] Platelet mean volume (Bld) [Entitic vol] 8.1 fL Normal 6.4-10.8 [facility] Comment on above: Performed By: #### 2 343339 #### [facility] [address] [place] [address] Platelets (Bld) [#/Vol] 394.0 E9/L Normal 150. 0-500. 0 [facility] Comment on above: Performed By: #### 2 419355 #### [facility] [address] [place] [address] RBC (Bld) [#/Vol] 4.2 E12/L Low 4.3-5.9 [facility] Comment on above: Performed By: #### 2 441185 #### [facility] [address] [place] [address] WBC corrected for nucl RBC Auto (Bld) [#/Vol] 7.1 E9/L Normal 4.0-11.0 [facility] Comment on above: Performed By: #### 2 184226 #### [facility] [address] [place] [address] CHEMISTRYOrdered By: SYSTEM SYSTEM on 01-13-2024 Albumin [Mass/Vol] 3.4 g/dL Normal 3.3 - 5.0 gm/dL [facility] Chem Albumin/Globulin [Mass ratio] 1.0 {ratio} Low 1.1 - 2.2 [facility] Chem ALP [Catalytic activity/Vol] 45 [iU]/d Normal 21 - 98 Int._Unit/ L Rem[facility] Chem ALT No additional P-5'-P [Catalytic activity/Vol] 11 [iU]/d Normal 6 - 46 Int._Unit/ L [facility] Chem Anion gap [Moles/Vol] 9 mmol/L Normal 6 - 16 mEq/L [facility] Chem AST [Catalytic activity/Vol] 12 [iU]/d Normal 5 - 43 Int._Unit/ L [facility] Chem Bilirubin [Mass/Vol] 0.3 mg/dL Normal [...] Chem eGFR 109 mL/min/1.73 m2 Normal >=59mL/mi n /1.73 m2 [facility] Chem Globulin (S) [Mass/Vol] 3.3 [...] Consent for Treatmenton 01-01 Consent for Treatment [id number] Normal [facility] Discharge Instructionson Discharge Instructions [id number] Normal [facility] ED Clinical Summaryon 2023 ED Clinical Summary (Inserted Image. Nida ble to display) [address] [address] ED Clinical Summary Person Information Name: ELIZABETH SCHNEIDERNICA Divya Harris/[facility] Age: 18 Years : 2005 Sex: Female Language: Wallisian PCP: Fredi Ellington MD Marital Status: Single Phone: [phone] Visit Id: Visit Reason: Abdominal pain; AB [...] 01/13/2024 21:12:34 01/13/2024 21:12:34 01/13/2024 21:12:34 ADDRESS: [address] [place] [id number] PHYS DOC NOTES: MEDICAL INFORMATION: Prescriptions Given: New Medications [facility]/pharmacy #[id number], [address] [place], [place] [id number], [phone] acetaminophen-hydrocodone ([place] 325 mg-5 mg oral tablet) 1 Tablets [...] 0. PATIENT EDUCATION INFORMATION: Instructions: Acute Pancreatitis, Ziov-pp-Udfp Follow up: With: Address: When: Zenon Hernandez [address] [place] [id number] [phone] Keek (1) In 3 days 01/16/2024 Comments: Call to schedule an appointment with the regional branch manager for further management of care With: Address: When: Fredi Ellington [address] [facility] [place] [address] Keek (1) In 3 days DIAGNOSIS: Acute pancreatitis; Mild nausea Normal [facility] ED Patient Education Noteon 01-13-2024 ED [...] these instructions at home: Medicines ? Take mszq-gel-dukxbim and prescription medicines only as told by [...] Reviewed: 06/10/2022 Elsevier Patient Education ? 2022 [employer] Normal [facility] ED Patient Summaryon 024 ED Patient Summary (Inserted Image. Nida ble to display) [address] [address] Patient Discharge Instructions Person Information Name: ROSE MARY SCHNEIDER Age: 18 Years Arrival Date: 01/13/2024 18:21:08 Discharge Diagnosis: Acute pancreatitis; Mild nausea Primary Care Physician: Fredi Ellington MD Provider Information Primary Provider: Ko Draper DO Advanced Shop Superintendent:Mirella Camilo PA-C The exam and treatment you received in the Emergency Department were for an urgent problem and are not intended as complete care. It is important that you follow up with a doctor, nurse practitioner, or physician?s financial planning assistant for ongoing care. If your symptoms [...] Follow-up Instructions: With: Address: When: Zenon Hernandez [address] [place] [address] [address] [phone] Keek (1) In 3 days 01/16/2024 Comments: Call to schedule an appointment with the regional branch manager for further management of care With: Address: When: Fredi Ellington [address] [facility] [address] [place] [phone] Keek (1) In 3 days In the event that this physician does not participate in your insurance network, please consult with your insurance company to find a nearby participating provider. Patient Education Materials: Acute Pancreatitis, Xixy-hr-Meff A MESSAGE TO ALL PATIENTS REGARDING OPIOIDS PRESCRIPTION OPIOIDS: WHAT YOU NEED TO KNOW Prescription opioids can be used to help relieve zwdcgzjp-fj-mpffig pain and are often prescribed following a [...] and Drug Administration (www.fda.gov/Drugs/Resour cesForYou). ? Visit www.[employer] (more content not included)... Normal [facility] HEMATOLOGYOrdered By: SYSTEM SYSTEM on 01-13-2024 [...] Heme Platelets (Bld) [#/Vol] 394.0 E9/L Normal 150. 0 - 500.0 E9/L Remisol Heme RBC (Bld) [#/Vol] 4.2 E12/L Low 4.3 - 5.9 E12/L Rem[facility] Heme WBC corrected for nucl RBC Auto (Bld) [#/Vol] 7.1 E9/L Normal 4.0 - 11.0 E9/L Remisol Heme Hep Func Panelon 01-13-2024 Albumin [Mass/Vol] 3.4 g/dL Normal 3.3-5.0 [facility] Comment on above: Performed By: #### 2 110330 #### [facility] [address] [place] [address] Albumin/Globulin (S) [Mass conc ratio] 1.0 Low 1.1-2.2 [facility] Comment on above: Performed By: #### 2 138235 #### [facility] [address] [place] [address] ALP [Catalytic activity/Vol] 45 Int._Unit/L Normal 21-98 [facility] Comment on above: Performed By: #### 2 632301 #### [facility] [address] [place] [address] ALT No additional P-5'-P [Catalytic activity/Vol] 11 Int._Unit/L Normal 6-46 [facility] Comment on above: Performed By: #### 2 089492 #### [facility] [address] [place] [address] AST [Catalytic activity/Vol] 12 Int._Unit/L Normal 5-43 [facility] Comment on above: Performed By: #### 2 958483 #### [facility] [address] [place] [address] Bilirubin [Mass/Vol] 0.3 mg/dL Normal 0.0-1.1 [facility] Comment on above: Performed By: #### 2 566752 #### [facility] [address] [place] [address] Bilirubin.direct [Mass/Vol] 0.0 mg/dL Normal 0.0-0.4 [facility] Comment on above: Performed By: #### 2 211853 #### [facility] [address] [place] [address] Bilirubin.indirect [Mass or moles/Vol] 0.3 mg/dL Normal 0.1-0.9 [facility] Comment on above: Performed By: #### 2 065478 #### [facility] [address] [place] [address] Globulin (S) [Mass/Vol] 3.3 g/dL Normal 1.4-4.0 [facility] Comment on above: Performed By: #### 2 904217 #### [facility] [address] [place] [address] Protein [Mass/Vol] 6.7 g/dL Normal 6.0-7.8 [facility] Comment on above: Performed By: #### 2 195903 #### [facility] [address] [place] [address] Lipase Levelon 01-13-2024 Lipase [Catalytic activity/Vol] 144 U/L High 13-58 [facility] Comment on above: Performed By: #### 2 935157 #### [facility] [address] [place] [address] RAD - Preliminary Cat Scan R eporton 01-13-2024 RAD - Preliminary Cat Scan Report [id number] Normal [facility] UA with Cult Rflxon 01-13-20 24 Bilirubin Ql (U) Negative Normal Negative [facility] Comment on above: Performed By: #### 4 [id number] ####[facility] [address] [place] [address] Clarity (U) Clear Normal Clear [facility] Comment on above: Performed By: #### 4 [id number] ####[facility] [address] [place] [address] Color (U) Colorless Abnormal Yellow [facility] Comment on above: Result Comment: Micr oscopic readings are only performed on those samples that meet specific criteria set forth by [facility]. Performed By: #### 4 [id number] ####[address] [address] Epithelial cells.squamous Auto (Urine sed) [#/Area] 0-2 Invalid Interpretation Code [facility] Comment on above: Performed By: #### 4 [id number] ####[address] [place] [address] Glucose Ql (U) Negative Normal Negative [facility] Comment on above: Performed By: #### 4 [id number] ####[address] [address] Hemoglobin Auto test strip (U) [Mass/Vol] 1+ mg/dL Abnormal Negative [facility] Comment on above: Performed By: #### 4 [id number] ####[address] [address] Ketones Auto test strip Ql (U) Negative Normal Negative [facility] Comment on above: Performed By: #### 4 [id number] ####[address] [address] Leukocyte esterase Auto test strip Ql (U) Negative Normal Negative [facility] Comment on above: Performed By: #### 4 [id number] ####[address] [address] Mucus Auto Ql (U) Negative Normal Negative [facility] Comment on above: Performed By: #### 4 [id number] ####[facility] [address] [place] [address] Nitrite Auto test strip Ql (U) Negative Normal Negative [facility] Comment on above: Performed By: #### 4 [id number] ####[address] [address] pH (U) 6.5 [pH] Invalid Interpretation Code 5.0-9.0 [facility] Comment on above: Performed By: #### 4 [id number] ####[place] [address] Protein Ql (U) Negative Normal Negative [facility] Comment on above: Performed By: #### 4 [id number] ####[place] [id number] RBC Ql (U) 0-3 Normal 0-3 [facility] Comment on above: Performed By: #### 4 [id number] ####[address] [id number] Specific gravity (U) [Rel density] 1.024 Invalid Interpretation Code 1.005-1.03 0 [facility] Comment on above: Performed By: #### 4 [id number] ####[place] [address] Urobilinogen (U) [Mass/Vol] Negative Normal Negative [facility] Comment on above: Performed By: #### 4 [id number] ####[place] [address] WBC Auto (Urine sed) [#/Area] 0-5 Normal 0-5 [facility] Comment on above: Performed By: #### 4 [id number] ####[place] [address] Type of Urine collection method Clean Catch Normal [facility] Comment on above: Performed By: #### 4 [id number] ####[place] [id number] URINALYSISOrdered By: SYSTEM SYSTEM on 01-13-2024 Bilirubin Ql (U) Negative Normal Negativemg /dL [facility] UA Auto SS Clarity (U) Clear (01/13/24 7:41 PM) Normal Clear [facility] UA Auto SS Color (U) Colorless 1 *ABN* (01/13/24 7:41 PM) Invalid Interpretation Code Yellow [facility] UA Auto SS Comment on above: Interpretive Data: M icroscopic readings are only performed on those samples that meet specific criteria set forth by [facility]. Epithelial cells.squamous Auto (Urine sed) [#/Area] 0-2 graded/HPF Invalid Interpretation Code [facility] UA Auto SS Glucose Ql (U) Negative Normal Negativemg /dL FT UA Auto SS Hemoglobin Auto test strip (U) [Mass/Vol] 1+ mg/dL Invalid Interpretation Code Negativemg /dL FT UA Auto SS Ketones Auto test strip Ql (U) Negative Normal Negativemg /dL FT UA Auto SS Leukocyte esterase Auto test strip Ql (U) Negative Normal NegativeLe u/uL FT UA Auto SS Mucus Auto Ql (U) Negative Normal Negativegr aded/LPF FT UA Auto SS Nitrite Auto test strip Ql (U) Negative Normal Negativemg /dL FT UA Auto SS pH (U) 6.5 *NA* (01/13/24 7:41 PM) Invalid Interpretation Code 5.0 - 9.0 [facility] UA Auto SS Protein Ql (U) Negative Normal Negativemg /dL FT UA Auto SS RBC Ql (U) 0-3 graded/HPF Normal 0-3graded/ HPF [facility] UA Auto SS Specific gravity (U) [Rel density] 1.024 *NA* (01/13/24 7:41 PM) Invalid Interpretation Code 1.005 - 1.030 [facility] UA Auto SS Urobilinogen (U) [Mass/Vol] Negative Normal Negativemg /dL [facility] UA Auto SS WBC Auto (Urine sed) [#/Area] 0-5 graded/HPF Normal 0-5graded/ HPF [facility] UA Auto SS URINALYSISOrdered By: Mirella Camilo on 01-13-2024 UA Spec Desc Clean Catch (01/13/24 7:41 PM) Normal [facility] UA Auto SS Work Phone: eGFRon 01-13-2024 eGFR 109 mL/min/1.73 m2 Normal >=59 [facility] Comment on above: Order Comment: Order added by Discern Expert. Performed By: #### 1 [id number] #### [facility] [address] [place] [address] CBC w/ Auto Diffon 4 Basophils/100 WBC (Bld) 0.4 % Normal 0.0-2.0 [facility] Comment on above: Performed By: #### 2 648762 #### [facility] [address] [place] [address] Basophils/Leukocytes Auto (Bld) [Pure # fraction] 0.0 E9/L Normal 0.0-0.2 [facility] Comment on above: Performed By: #### 2 735847 #### [facility] [address] [place] [address] Eosinophils (Bld) [#/Vol] 0.2 E9/L Normal 0.0-0.5 [facility] Comment on above: Performed By: #### 2 654137 #### [facility] [address] [place] [address] Eosinophils/100 WBC (Bld) 2.3 % Normal 0.0-8.0 [facility] Comment on above: Performed By: #### 2 [id number] #### [facility] [address] [place] [address] Erythrocyte distribution width (RBC) [Ratio] 13.9 % Normal 10.9-14.2 [facility] Comment on above: Performed By: #### 2 282551 #### [facility] [address] [place] [address] Hematocrit (Bld) [Volume fraction] 37.3 % Normal 34.0-46.0 [facility] Comment on above: Performed By: #### 2 042954 #### [facility] [address] [place] [address] Hemoglobin (Bld) [Mass/Vol] 12.7 g/dL Normal 12.0-16.0 [facility] Comment on above: Performed By: #### 2 774476 #### [facility] [address] [place] [address] Lymphocytes (Bld) [#/Vol] 2.3 E9/L Normal 1.0-4.0 [facility] Comment on above: Performed By: #### 2 461675 #### [facility] [address] [place] [address] Lymphocytes/100 WBC (Bld) 33.8 % Normal 14.0-50.0 [facility] Comment on above: Performed By: #### 2 425823 #### [facility] [address] [place] [address] MCH (RBC) [Entitic mass] 28.5 pg Normal 27.0-34.0 [facility] Comment on above: Performed By: #### 2 210351 #### [facility] [address] [place] [address] MCHC (RBC) [Mass/Vol] 34.0 g/dL Normal 31.4-36.0 [facility] Comment on above: Performed By: #### 2 469207 #### [facility] [address] [place] [address] MCV (RBC) [Entitic vol] 83.9 fL Normal 80.0-100.0 [facility] Comment on above: Performed By: #### 2 096604 #### [facility] [address] [place] [address] Monocytes (Bld) [#/Vol] 0.6 E9/L Normal 0.2-1.0 [facility] Comment on above: Performed By: #### 2 185979 #### [facility] [address] [place] [address] Neutrophils (Bld) [#/Vol] 3.8 E9/L Normal 2.0-7.5 [facility] Comment on above: Performed By: #### 2 108147 #### [facility] [address] [place] [address] Neutrophils/100 WBC (Bld) 55.0 % Normal 36.0-75.0 [facility] Comment on above: Performed By: #### 2 807410 #### [facility] [address] [place] [address] Platelet 454.0 E9/L Normal 150.0-500. 0 [facility] Comment on above: Performed By: #### 2 520625 #### [facility] [address] [place] [address] Platelet mean volume (Bld) [Entitic vol] 7.5 fL Normal 6.4-10.8 [facility] Comment on above: Performed By: #### 2 452653 #### [facility] [address] [place] [address] RBC (Bld) [#/Vol] 4.4 E12/L Normal 4.3-5.9 [facility] Comment on above: Performed By: #### 2 495645 #### [facility] [address] [place] [address] WBC corrected for nucl RBC Auto (Bld) [#/Vol] 6.9 E9/L Normal 4.0-11.0 [facility] Comment on above: Performed By: #### 2 569373 #### [facility] [address] [place] [address] CHEMISTRYOrdered By: SYSTEM SYSTEM on 01-12-2024 Albumin [Mass/Vol] 3.7 g/dL Normal 3.3 - 5.0 gm/dL Remisol Chem Albumin/Globulin [Mass ratio] 1.0 {ratio} Low 1.1 - 2.2 [facility] Chem ALP [Catalytic activity/Vol] 49 [iU]/d Normal 21 - 98 Int._Unit/ L Remisol Chem ALT No additional P-5'-P [Catalytic activity/Vol] 12 [iU]/d Normal 6 - 46 Int._Unit/ L [facility] Chem Anion gap [Moles/Vol] 9 mmol/L Normal 6 - 16 mEq/L Rem[facility] Chem AST [Catalytic activity/Vol] 12 [iU]/d Normal 5 - 43 Int._Unit/ L [facility] Chem Bilirubin [Mass/Vol] 0.3 mg/dL Normal [...] Chem eGFR 128 mL/min/1.73 m2 Normal >=59mL/mi n /1.73 m2 Rem[facility] Chem Globulin (S) [Mass/Vol] 3.7 [...] 01-12-2024 Albumin [Mass/Vol] 3.7 g/dL Normal 3.3-5.0 [facility] Comment on above: Performed By: #### 2 [id number] #### [facility] [address] [place] [address] Albumin/Globulin (S) [Mass conc ratio] 1.0 Low 1.1-2.2 [facility] Comment on above: Performed By: #### 2 451371 #### [facility] [address] [place] [address] ALP [Catalytic activity/Vol] 49 Int._Unit/L Normal 21-98 [facility] Comment on above: Performed By: #### 2 740645 #### [facility] [address] [place] [address] ALT No additional P-5'-P [Catalytic activity/Vol] 12 Int._Unit/L Normal 6-46 [facility] Comment on above: Performed By: #### 2 398712 #### [facility] [address] [place] [address] Anion gap [Moles/Vol] 9 mmol/L Normal 6-16 [facility] Comment on above: Performed By: #### 2 220777 #### [facility] [address] [place] [address] AST [Catalytic activity/Vol] 12 Int._Unit/L Normal 5-43 [facility] Comment on above: Performed By: #### 2 498162 #### [facility] [address] [place] [address] Bilirubin [Mass/Vol] 0.3 mg/dL Normal 0.0-1.1 [facility] Comment on above: Performed By: #### 2 348781 #### [facility] [address] [place] [address] Calcium [Mass/Vol] 9.2 mg/dL Normal 8.9-11.1 [facility] Comment on above: Performed By: #### 2 126612 #### [facility] [address] [place] [address] Chloride [Moles/Vol] 105 mmol/L Normal 101-111 [facility] Comment on above: Performed By: #### 2 316275 #### [facility] Laboratory [address] [place] [address] CO2 [Moles/Vol] 27 mmol/L Normal 21-31 [facility] Comment on above: Performed By: #### 2 [id number] #### [facility] Laboratory [address] [place] [address] Creatinine [Mass/Vol] 0.7 mg/dL Normal 0.5-1.3 [facility] Comment on above: Performed By: #### 2 [id number] #### [facility] Laboratory [address] [place] [address] Globulin (S) [Mass/Vol] 3.7 g/dL Normal 1.4-4.0 [facility] Comment on above: Performed By: #### 2 [id number] #### [facility] [address] [place] [address] Glucose [Mass/Vol] 89 mg/dL Normal 55-199 [facility] Comment on above: Performed By: #### 2 [id number] #### [facility] Laboratory [address] [place] [address] Potassium [Moles/Vol] 3.7 mmol/L Normal 3.5-5.3 [facility] Comment on above: Performed By: #### 2 [id number] #### [facility] [address] [place] [address] Protein [Mass/Vol] 7.4 g/dL Normal 6.0-7.8 [facility] Comment on above: Performed By: #### 2 [id number] #### [facility] [address] [place] [address] Sodium [Moles/Vol] 137 mmol/L Normal 135-145 [facility] Comment on above: Performed By: #### 2 247810 #### [facility] [address] [place] [address] Urea nitrogen [Mass/Vol] 8 mg/dL Normal 5-21 [facility] Comment on above: Performed By: #### 2 [id number] #### [facility] [address] [place] [address] Urea nitrogen/Creatinine [Mass ratio] 11 No Units Normal 10-20 [facility] Comment on above: Performed By: #### 2 274305 #### [facility] Laboratory [address] [place] [address] Consent for Treatmenton 01-01 Consent for Treatment [id number] Normal [facility] Discharge Instructionson Discharge Instructions [id number] Normal [facility] ED Clinical Summaryon 2023 ED Clinical Summary (Inserted Image. Nida ble to display) [address] [address] ED Clinical Summary Person Information Name: ROSE MARY SCHNEIDER Divya Harris/New_Lenny Age: 18 Years : 2005 Sex: Female Language: Wallisian PCP: Fredi Ellington MD Marital Status: Single Phone: [phone] Visit Id: Visit Reason: Abdominal pain; ABDOMINAL [...] 01/12/2024 17:22:14 01/12/2024 17:22:14 01/12/2024 17:22:14 ADDRESS: [address] [place] [id number] PHYS DOC NOTES: MEDICAL INFORMATION: Prescriptions Given: New Medications [facility]/pharmacy #[id number], [address] [place] [address], [place] [id number], [phone] ondansetron (Zofran ODT 4 mg Tab-Dis) 1 [...] INFORMATION: Instructions: Full Liquid Diet; Nausea, Adult, Fcjm-ns-Fgpr; Abdominal Pain, Adult, Lkop-hx-Tlsz Follow up: With: Address: When: Rakel MARCANO, [address] [address] In 3 days 01/15/2024 DIAGNOSIS: 1:Generalized abdominal pain; 2:Nausea; 3:Elevated lipase Normal [facility] ED Note-Nursingon 01-12-2024 ED Note-Nursing MARIE Morales at [facility] to discuss poc. Normal [facility] ED Patient Education Noteon 01-12-2024 ED [...] Water. Coffee and tea (caffeinated or decaffeinated). Jasper. Liquid nutritional supplements. Soft drinks. Nondairy milks, such as almond, coconut, rice, or soy milk. Sweets and desserts Custard. Pudding. Flavored gelatin. Smooth ice cream (without nuts or candy pieces). Sherbet. Frozen ice pops. Bhutanese ice. Pudding pops. Seasonings and condiments Salt and pepper. Spices. Vinegar. Ketchup. Yellow mustard. Smooth sauces, such as Hollandaise, cheese sauce, or white sauce. Soy sauce. Syrup. Honey. Jelly (without fruit pieces). Other foods Jasper powder. Cream soups. Strained soups. The items [...] This infor (more content not included)... Normal [facility] ED Patient Education Note Gastroenterology Nausea, [...] ? Low-calorie sports drinks. ? Eat bland, gvoq-ah-tvtyhs foods in small amounts as you are able, such as: ? Bananas. ? Applesauce. ? Rice. ? Low-fat (lean) meats. ? [place]. ? Crackers. ? Avoid drinking fluids that have a lot of sugar or caffeine in them. This includes energy drinks, sports drinks, and soda. ? Avoid alcohol. ? Avoid spicy or fatty foods. General instructions ? Take ysje-lyf-yjgrsau and prescription medicines only as told by [...] cannot use soap and water, use hand digital content specialist. ? Make sure that everyone in [...] drink what your doctor tells you. Take hqhe-cxx-vsnlsca and prescription medicines only as told by [...] provider. Document Revised: 01/24/2022 Document Reviewed: 01/24/2022 Elsevier Patient Education ? 2022 Elsevier Inc. Abdominal Pain, Adult Many things can cause belly (abdominal) pain. Most times, belly pain is not dangerous. Many cases of belly pain can be watched and treated at home. Sometimes, though, belly pain is serious. Your doctor will try to find the cause of your belly pain. Follow these instructions at home: Medicines ? Take lqms-htp-qdhrcca and prescription medicines only as told by [...] doctor if: (more content not included)... Normal [facility] ED Patient Summaryon 024 ED Patient Summary (Inserted Image. Nida ble to display) [address] [address] Patient Discharge Instructions Person Information Name: ROSE MARY SCHNEIDER Age: 18 Years Arrival Date: 01/12/2024 14:42:50 Discharge Diagnosis: 1:Generalized abdominal pain; 2:Nausea; 3:Elevated lipase Primary Care Physician: Fredi Ellington MD Provider Information Primary Provider: Radha Whipple DO Advanced Shop Superintendent:Liss Schroeder PA-C The exam and treatment you received in the Emergency Department were for an urgent problem and are not intended as complete care. It is important that you follow up with a doctor, nurse practitioner, or physician?s financial planning assistant for ongoing care. If your symptoms become worse or you do not improve as expected and you are unable to reach your usual health care provider, you should return to the Emergency Department. We are available 24 hours a day. ROSE MARY SCHNEIDER has been given the following list of patient education materials, prescriptions and follow-up instructions: Follow-up Instructions: With: Address: When: Fredi Ellington MD [address] [facility] [address] In 3 days 01/15/2024 In the event that this physician does not participate in your insurance network, please consult with your insurance company to find a nearby participating provider. Patient Education Materials: Full Liquid Diet; Nausea, Adult, Lyfp-dk-Ffxg; Abdominal Pain, Adult, Dobi-ue-Rbzt A MESSAGE TO ALL PATIENTS REGARDING OPIOIDS PRESCRIPTION OPIOIDS: WHAT YOU NEED TO KNOW Prescription opioids can be used to help relieve psvsibws-tr-amcjxn pain and are often prescribed following a [...] care professiona (more content not included)... Normal [facility] HEMATOLOGYOrdered By: SYSTEM SYSTEM on 01-12-2024 [...] Lipase [Catalytic activity/Vol] 158 U/L High 13-58 [facility] Comment on above: Performed By: #### 2 [id number] #### [facility] Laboratory [address] [place] [address] Prescriptions/Work Noteson 0 01-12-2024 Prescriptions/Work Notes [id number] Normal [facility] SEROLOGYOrdered By: Alisha Smart on 01-12-2024 HCG.beta subunit (U) [Moles/Vol] Negative Normal [facility] Man Sero U BetaHcg Qualon 01-12-2024 HCG.beta subunit (U) [Moles/Vol] Negative Normal [facility] Comment on above: Performed By: #### 2 [id number] #### [facility] [address] [place] [address] UA with Cult Rflxon 01-12-20 24 Bilirubin Ql (U) Negative Normal Negative [facility] Comment on above: Performed By: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 [facility] Comment on above: Performed By: #### 2 070055, 9150638, 9691357, 44236156, 45418491 ####[facility] [address] [place] [address] Urea nitrogen [Mass/Vol] 7 mg/dL Normal 5-21 [facility] Comment on above: Performed By: #### 2 723248, 6035623, 4714877, 58931222, 33070458 ####[facility] [address] [place] [address] Urea nitrogen/Creatinine [Mass ratio] 9 No Units Low 10-20 [facility] Comment on above: Performed By: #### 2 195108, 3283482, 9916076, 88746447, 12284362 ####[facility] [address] [place] [address] CHEMISTRYOrdered By: SYSTEM SYSTEM on 03-08-2023 Albumin [Mass/Vol] 3.0 g/dL Low 3.3 - 5.0 gm/dL [facility] Albumin/Globulin [Mass ratio] 0.7 {ratio} Low 1.1 - 2.2 [facility] ALP [Catalytic activity/Vol] 46 [iU]/d Normal 21 - 98 Int._Unit/ L [facility] ALT No additional P-5'-P [Catalytic activity/Vol] 14 [iU]/d Normal 6 - 46 Int._Unit/ L [facility] Remisol AST [Catalytic activity/Vol] 17 [iU]/d Normal 5 - 43 Int._Unit/ L [facility] Bilirubin [Mass/Vol] 0.3 mg/dL Normal [...] activity/Vol] 42 [iU]/d Normal 21 - 98 Int._Unit/ L [facility] Remisol ALT No additional P-5'-P [Catalytic activity/Vol] 12 [iU]/d Normal 6 - 46 Int._Unit/ L [facility] Rem[facility] Anion gap [Moles/Vol] 13 mmol/L Normal 6 - 16 mEq/L [facility]isol AST [Catalytic activity/Vol] 13 [iU]/d Normal 5 - 43 Int._Unit/ L [facility] Bilirubin [Mass/Vol] 0.4 mg/dL Normal [...] (S/P/Bld) [Vol rate/Area] 109 mL/min/1.73 m2 Normal >=59mL/min /1.73 m2 FT Chem S Globulin (S) [Mass/Vol] [...] s Normal 9.4 - 1 2.5 second(s) [facility] Auto Coag GetWell Education Videoon GetWell Education Video Avoiding Infecti ons in the Hospital Yes Patient Normal [facility] Hep Func Panelon 03-08-2023 Bilirubin.indirect [Mass or moles/Vol] UTC Abnormal 0.1-0.9 [facility] Comment on above: Result Comment: Resu lt verified by Discern Rule. Performed result UTC (Unable to Calculate) was sent as an Alpha code due the inability to calculate a valid numeric value. Performed By: #### 2 120827 #### [facility] [address] [place] [address] Albumin [Mass/Vol] 3.0 g/dL Low 3.3-5.0 [facility] Comment on above: Performed By: #### 2 246250 #### [facility] [address] [place] [address] Albumin/Globulin (S) [Mass conc ratio] 0.7 Low 1.1-2.2 [facility] Comment on above: Performed By: #### 2 766825 #### [facility] [address] [place] [address] ALP [Catalytic activity/Vol] 46 Int._Unit/L Normal 21-98 [facility] Comment on above: Performed By: #### 2 115288 #### [facility] [address] [place] [address] ALT No additional P-5'-P [Catalytic activity/Vol] 14 Int._Unit/L Normal 6-46 [facility] Comment on above: Performed By: #### 2 411557 #### [facility] [address] [place] [address] AST [Catalytic activity/Vol] 17 Int._Unit/L Normal 5-43 [facility] Comment on above: Performed By: #### 2 757723 #### [facility] [address] [place] [address] Bilirubin [Mass/Vol] 0.3 mg/dL Normal 0.0-1.1 [facility] Comment on above: Performed By: #### 2 165933 #### [facility] [address] [place] [address] Globulin (S) [Mass/Vol] 4.2 g/dL High 1.4-4.0 [facility] Comment on above: Performed By: #### 2 022303 #### [facility] [address] [place] [address] Protein [Mass/Vol] 7.2 g/dL Normal 6.0-7.8 [facility] Comment on above: Performed By: #### 2 831917 #### [facility] [address] [place] [address] Bilirubin.direct [Mass/Vol] mg/dL Normal 0.1-0.4 [facility] Comment on above: Performed By: #### 2 054518 #### [facility] [address] [place] [address] Bilirubin.indirect [Mass or moles/Vol] UTC Abnormal 0.1-0.9 [facility] Comment on above: Result Comment: Resu lt verified by Discern Rule. Performed result UTC (Unable to Calculate) was sent as an Alpha code due the inability to calculate a valid numeric value. Performed By: #### 2 998584, 9713618, 4893922, 62573590, 18403229 ####[facility] [address] [place] [address] Albumin [Mass/Vol] 3.0 g/dL Low 3.3-5.0 [facility] Comment on above: Performed By: #### 2 648900, 4712772, 2800119, 84559762, 51865228 ####[facility] [address] [place] [address] Albumin/Globulin (S) [Mass conc ratio] 0.7 Low 1.1-2.2 [facility] Comment on above: Performed By: #### 2 310171, 6829696, 1944071, 00983956, 00696659 ####[facility] [address] [place] [address] ALP [Catalytic activity/Vol] 42 Int._Unit/L Normal 21-98 [facility] Comment on above: Performed By: #### 2 462003, 4489854, 5616577, 25268219, 79800589 ####[facility] [address] [place] [address] ALT No additional P-5'-P [Catalytic activity/Vol] 12 Int._Unit/L Normal 6-46 [facility] Comment on above: Performed By: #### 2 895249, 2970935, 4423816, 97072198, 95228543 ####[facility] [address] [place] [address] AST [Catalytic activity/Vol] 13 Int._Unit/L Normal 5-43 [facility] Comment on above: Performed By: #### 2 000896, 8619473, 2918839, 29998057, 70627679 ####[facility] [address] [place] [address] Bilirubin [Mass/Vol] 0.4 mg/dL Normal 0.0-1.1 [facility] Comment on above: Performed By: #### 2 752462, 5614605, 3888030, 00128327, 64527560 ####[facility] [address] [place] [address] Globulin (S) [Mass/Vol] 4.2 g/dL High 1.4-4.0 [facility] Comment on above: Performed By: #### 2 238936, 3905706, 9859314, 29458777, 33055946 ####[facility] [address] [place] [address] Protein [Mass/Vol] 7.2 g/dL Normal 6.0-7.8 [facility] Comment on above: Performed By: #### 2 744939, 5440753, 3028431, 16513729, 67183406 ####[facility] [address] [place] [address] Bilirubin.direct [Mass/Vol] mg/dL Normal 0.1-0.4 [facility] Comment on above: Performed By: #### 2 542861, 4706976, 8993396, 77401566, 21540864 ####[facility] [address] [place] [address] Bilirubin.indirect [Mass or moles/Vol] UTC Abnormal 0.1-0.9 [facility] Comment on above: Result Comment: Resu lt verified by Discern Rule. Performed result UTC (Unable to Calculate) was sent as an Alpha code due the inability to calculate a valid numeric value. Performed By: #### 2 878534, 7343408 #### [facility] [address] [place] [address] Albumin [Mass/Vol] 2.9 g/dL Low 3.3-5.0 [facility] Comment on above: Performed By: #### 2 770854, 2135444 #### [facility] [address] [place] [address] Albumin/Globulin (S) [Mass conc ratio] 0.7 Low 1.1-2.2 [facility] Comment on above: Performed By: #### 2 825104, 5158554 #### [facility] [address] [place] [address] ALP [Catalytic activity/Vol] 40 Int._Unit/L Normal 21-98 [facility] Comment on above: Performed By: #### 2 778893, 0250403 #### [facility] [address] [place] [address] ALT No additional P-5'-P [Catalytic activity/Vol] 11 Int._Unit/L Normal 6-46 [facility] Comment on above: Performed By: #### 2 858946, 2775115 #### [facility] [address] [place] [address] AST [Catalytic activity/Vol] 16 Int._Unit/L Normal 5-43 [facility] Comment on above: Performed By: #### 2 965349, 5274225 #### [facility] [address] [place] [address] Bilirubin [Mass/Vol] 0.3 mg/dL Normal 0.0-1.1 [facility] Comment on above: Performed By: #### 2 404623, 6323592 #### [facility] [address] [place] [address] Globulin (S) [Mass/Vol] 4.0 g/dL Normal 1.4-4.0 [facility] Comment on above: Performed By: #### 2 844847, 3106578 #### [facility] [address] [place] [address] Protein [Mass/Vol] 6.9 g/dL Normal 6.0-7.8 [facility] Comment on above: Performed By: #### 2 641453, 2401029 #### [facility] [address] [place] [address] Bilirubin.direct [Mass/Vol] mg/dL Normal 0.1-0.4 [facility] Comment on above: Performed By: #### 2 280985, 9608137 #### [facility] [address] [place] [address] Interdisciplinary Note - Binu e Manageron 03-08-2023 Interdisciplinary Note - Master Cook CRM spoke with patient and mother in [...] has a sitter in the room. Normal [facility] Comment on above: Result Comment: Elec tronically Signed By: Don RN, Antoinette\.br\Date and Time Signed: 03/08/23 12:53 EDT Monitor Recordon 03-08-2023 Monitor Record [id number]#[id number]:1 27 Normal [facility] Monitor Record [id number]#1.00CD:1 27 Normal [facility] Monitor Record [id number]#1.00CD:1 27 Normal [facility] PT & PTTon 03-08-2023 aPTT Coag (PPP) [Time] 32.2 second(s) Normal 25.1-36.5 [facility] Comment on above: Result Comment: Para [...] the same coagulation reagent and instrumentation as [facility]. Currently there are no coagulation studies available worldwide for children to 14 days, and no normal ranges. Heparin therapeutic range (represented by Anti-Factor Xa activity of 0.2 - 0.4 U/mL) corresponds to PTT of 56.6 - 109.0 sec. Performed By: #### 2 952605, 5516355, 5750733, 23482421, 30910898 ####[facility] [facility] [address] [place] [address] INR Coag (PPP) [Relative time] 1.1 {INR} Invalid Interpretation Code [facility] Comment on above: Result Comment: INR results are specifically intended to assess patients stabilized on long-term Anticoagulation therapy suggested INR?s ?Less Intensive Anticoagulation? 2.0 ? 3.0 Conventional Range 3.0 ? 4.5 Performed By: #### 2 131936, 2878971, 7392970, 07939753, [id number] ####[facility] [address] [place] [address] PT Coag (PPP) [Time] 12.1 second(s) Normal 9.4-12.5 [facility] Comment on above: Result Comment: 15 [...] the same coagulation reagent and instrumentation as [facility]. Currently there are no coagulation studies available worldwide for children to 14 days, and no normal ranges. Performed By: #### 2 612738, 0581466, 1619158, 95288349, 15993307 ####[facility] [address] [place] [address] Progress Note-Nurseon 2022 Progress Note-Nurse Patient assisted to BSC and voids a small amount of clear yellow urine. Patient also ate a 6 inch sub and tolerated it well. She denies GI upset and tolerated it well. Observation continued and safety maintained. Normal [facility] Progress Note-Nurse Report taken and bed [...] Seizure pads intact and safety maintained. Normal [facility] Progress Note-Nurse 1340: This RN contac [...] will remain on regular nursing floor. Normal [facility] Progress Note-Physicianon Progress Note-Physician Assessment/Plan 17-year-old [...] overdose with Tylenol/diphenhydramine.? Secondary to suicide ideation/attempt. home economics extension worker evaluation. Acetaminophen level ekta to 40 but trended down to undetectable. Treating with IVF Thursday. LFTs within normal limit. Repeat LFTs and PT/INR in AM. Ordered: Basic Metabolic Panel Comprehensive Metabolic Panel Consult to Bariatric Surgeon eGFR Extra Lav Tube Hepatic Function Panel PT [facility] Care/Day Moderate 35 Minutes 58267 2. Suicidal ideation (R45.851: Suicidal ideations) Supportive care. home economics extension worker evaluation. Mental health evaluation in a.m. once medically stable. Ordered: Consult to Bariatric Surgeon [facility] Care/Day Moderate 35 Minutes 02802 3. Antihistamines overdose (T45.0X1A: Poisoning by antiallergic and antiemetic drugs, accidental (unintentional), initial encounter) Treated with charcoal. Respiratory status and circulation currently stable. Treated with IV fluid. Bladder scan?so far not retaining urine. Ordered: [facility] Care/Day Moderate 35 Minutes 95257 4. Hypokalemia (E87.6: Hypokalemia) Secondary to gastrointestinal loss and IV fluid. We will replace orally. Ordered: potassium chloride, 40 mEq = 2 tab(s), Tab-ER, Oral, BID for 2 dose(s), Stop date 03/09/23 8:59:00 EDT, Routine, Start date 03/08/23 9:00:00 EDT, 03/08/23 8:36:00 EDT Comprehensive Metabolic Panel [facility] Care/Day Moderate 35 Minutes 09530 5. Depression (F32.A: Depression, unspecified) On fluoxetine. Ordered: [facility] Care/Day Moderate 35 Minutes 12274 6. Seizure (R56.9: Unspecified convulsions) No reported seizure. On Lamictal and Keppra. Ordered: lorazepam, 1 mg = 0.5 mL, Injection, IV Push, QID PRN Seizure, Routine, Start date 03/07/23 18:04:00 EDT 7. Obesity (E66.9: Obesity, unspecified) Recommend therapeutic lifestyle modification changes. 8. On deep vein thrombosis (DVT) prophylaxis (Z79.899: Other incident response lead (current) drug therapy) SCDs. Disposition: Pending mental health evaluation in AM. I discussed the diagnosis and plan of care with the patient at the bedside. Moderate level of MDM based on addressing above issues. This documentation was transcribed using voice recognition software. Several attempts were made to ensure accuracy. However inadvertent computerized director heart errors may be present. Jennifer Retana. Hospitalist. [...] -- charco (more content not included)... Normal [facility] Comment on above: Result Comment: Elec tronically Signed By: DEBBIE MARCANO, Jennifer\.br\Date and Time Signed: 03/08/23 08:38 EDT Reference Laboratory Testing Ordered By: Mick DomainUser on 03-08-2023 lamoTRIgine [Mass/Vol] microgram/mL Low 2.0-2 0.0mc g/mL [facility] SendOutsSS Comment on above: Result Comment: Dete ction Limit = 1.0 Performed at: [facility] [id number] MD Jose Armando Feliz levETIRAcetam [Mass/Vol] 12.4 microgram/mL Invalid Interpretation Code 10.0-40.0m cg/mL [facility] Comment on above: Result Comment: Perf ormed at: [facility] [address] [id number] MD Jose Armando Feliz eGFRon 03-08-2023 GFR/1.73 sq M.predicted among non-blacks MDRD (S/P/Bld) [Vol rate/Area] 109 mL/min/1.73 m2 Normal >=59 [facility] Comment on above: Order Comment: Order added by Discern Expert. Result Comment: [employer] Machine Feeder marleny kidney disease could be indicated at eGFR's of less than 60 mL/min/1.73m2. Kidney failure is indicated at less than 15 mL/min/1.73m2. Performed By: #### 2 834893, 5558406, 9217465, 32248278, 27564998 ####[facility] [address] [place] [address] Acetamnphn Lvlon 03-07-2023 Acetaminophen [Mass/Vol] 40 microgram/mL Abnormal 15-30 [facility] Comment on above: Result Comment: Crit ical Result verified by repeat analysis\Critical Result S_ACTM:40.1 Called to ALLEN ZENG AT by SANIYA NEWBY And Read Back For Confirmation at: 03/07/2023 18:17:47 Performed By: #### 2 696937, [id number] #### [facility] [address] [place] [address] Acetaminophen [Mass/Vol] 35 microgram/mL High 15-30 [facility] Comment on above: Performed By: #### 1 6579790, 0760172, 0796751, 9095489, 04913743, 7447332, 3409050, 4406871, 5859441 #### [facility] [address] [place] [address] Auto Diffon 03-07-2023 Basophils/100 WBC (Bld) 0.5 % Normal 0.0-2.0 [facility] Comment on above: Order Comment: Order Added by Discern Expert. Performed By: #### 1 3330025, 3367786, 1926470, 8851162, 96731061, 8344600, 8358537, 6044391, 2863330 ####[facility] [address] [place] [address] Basophils/Leukocytes Auto (Bld) [Pure # fraction] 0.0 E9/L Normal 0.0-0.2 [facility] Comment on above: Order Comment: Order Added by Discern Expert. Performed By: #### 1 9382237, 9172186, 3929243, 6592466, 53028842, 6363099, 8090579, 5364860, 5565868 ####[facility] [address] [place] [address] Eosinophils/100 WBC (Bld) 1.9 % Normal 0.0-8.0 [facility] Comment on above: Order Comment: Order Added by Discern Expert. Performed By: #### 1 3416856, 7889853, 2748545, 1522223, 81497077, 9443640, 2728933, 9602499, 0891018 ####[facility] [address] [place] [address] Eosinophils/Leukocytes Auto (Bld) [Pure # fraction] 0.1 E9/L Normal 0.0-0.5 [facility] Comment on above: Order Comment: Order Added by Discern Expert. Performed By: #### 1 0373971, 2105140, 7269489, 1970090, 99268841, 6809996, 0309209, 2321077, 8456730 ####[address] [place] [address] Lymphocytes/100 WBC (Bld) 28.7 % Normal 14.0-50.0 [facility] Comment on above: Order Comment: Order Added by Discern Expert. Performed By: #### 1 5141637, 7942439, 8521064, 6759744, 46205480, 0187150, 5604072, 0319736, 7717746 ####[address] [place] [address] Lymphocytes/Leukocytes Auto (Bld) [Pure # fraction] 2.0 E9/L Normal 1.0-4.0 [facility] Comment on above: Order Comment: Order Added by Discern Expert. Performed By: #### 1 6965609, 7152570, 1827216, 7589966, 52635427, 1285894, 3886853, 6429961, 9364416 ####[address] [place] [address] Monocytes/100 WBC (Bld) 8.6 % Normal 4.0-14.0 [facility] Comment on above: Order Comment: Order Added by Discern Expert. Performed By: #### 1 7664227, 7920130, 6327829, 7917675, 24241652, 5417261, 5596335, 9595215, 2927182 ####[address] [place] [address] Monocytes/Leukocytes Auto (Bld) [Pure # fraction] 0.6 E9/L Normal 0.2-1.0 [facility] Comment on above: Order Comment: Order Added by Samantha Expert. Performed By: #### 1 9079925, 7218168, 2358480, 6704632, 58701540, 9323241, 9780012, 2519844, 0074282 ####[facility] [address] [place] [address] Neutrophils/100 WBC (Bld) 60.3 % Normal 36.0-75.0 [facility] Comment on above: Order Comment: Order Added by Discern Expert. Performed By: #### 1 4627192, 5613690, 5198747, 3720872, 31524240, 6838615, 8565337, 2422514, 4828611 ####[facility] [address] [place] [address] Neutrophils/Leukocytes Auto (Bld) [Pure # fraction] 4.1 E9/L Normal 2.0-7.5 [facility] Comment on above: Order Comment: Order Added by Discern Expert. Performed By: #### 1 9875521, 1084226, 4602456, 2101800, 31060686, 6185198, 2876269, 4708825, 7488972 ####[address] [address] B hCG Qualon 03-07-2023 Beta hCG Ql Negative Normal [facility] Comment on above: Performed By: #### 1 3308640, 4789189, 4671718, 7542339, 99281573, 6696533, 1278935, 6529584, 8805721 ####[facility] [address] [place] [address] BMPon 03-07-2023 Creatinine [Mass/Vol] 0.9 mg/dL Normal 0.5-1.3 [facility] Comment on above: Performed By: #### 1 1357256, 8383462, 5606203, 3729036, 56665916, 9097424, 4227649, 4731871, 2401971 ####[address] [place] [address] Urea nitrogen [Mass/Vol] 9 mg/dL Normal 5-21 [facility] Comment on above: Performed By: #### 1 7340490, 2466293, 6741987, 7823092, 88800127, 0397920, 9197831, 2440709, 2477508 ####[facility] [address] [place] [address] Urea nitrogen/Creatinine [Mass ratio] 10 No Units Normal 10-20 [facility] Comment on above: Performed By: #### 1 7082338, 8828579, 0310350, 6903568, 47539474, 8075871, 6410907, 2433387, 9468088 ####[facility] [address] [place] [address] Anion gap [Moles/Vol] 14 mmol/L Normal 6-16 [facility] Comment on above: Performed By: #### 1 0649970, 4454899, 8056469, 4701156, 93206342, 4854511, 1080817, 6004741, 1450414 ####[facility] [address] [place] [address] Calcium [Mass/Vol] 9.4 mg/dL Normal 8.9-11.1 [facility] Comment on above: Performed By: #### 1 1497363, 4468568, 8387666, 8465005, 96747057, 1264600, 3925122, 8081927, 5182831 ####[facility] [address] [place] [address] Chloride [Moles/Vol] 103 mmol/L Normal 101-111 [facility] Comment on above: Performed By: #### 1 1733094, 8719236, 6347925, 9995438, 72466162, 8631266, 0572406, 3448530, 1337158 ####[facility] [address] [place] [address] CO2 [Moles/Vol] 24 mmol/L Normal 21-31 [facility] Comment on above: Performed By: #### 1 4419826, 8194175, 8836066, 7513300, 67835441, 8356779, 7517780, 8935917, 4771261 ####[facility] [address] [place] [address] Glucose [Mass/Vol] 95 mg/dL Normal 55-199 [facility] Comment on above: Result Comment: If t his glucose result represents a fasting glucose, interpretation should refer to the following reference range: 55-99 mg/dL Performed By: #### 1 2475478, 2785216, 2142028, 2246134, 75330373, 0016260, 7530354, 7720597, 9555127 ####[facility] [address] [place] [address] Potassium [Moles/Vol] 3.6 mmol/L Normal 3.5-5.3 [facility] Comment on above: Performed By: #### 1 2817325, 9924504, 8903730, 3228262, 50163561, 1714238, 8805694, 3304186, 3805583 ####[facility] [address] [place] [address] Sodium [Moles/Vol] 137 mmol/L Normal 135-145 [facility] Comment on above: Performed By: #### 1 5606966, 3593440, 7821257, 2409163, 16227606, 7583752, 9147011, 8239987, 3883718 ####[facility] [address] [place] [address] CBC w/ Auto Diffon 3 Erythrocyte distribution width (RBC) [Ratio] 14.0 % Normal 10.9-14.2 [facility] Comment on above: Performed By: #### 1 6225588, 7444904, 5971481, 0276104, 91593721, 1275332, 6513479, 1931049, 9698728 ####[facility] [address] [place] [address] Hematocrit (Bld) [Volume fraction] 37.9 % Normal 34.0-46.0 [facility] Comment on above: Performed By: #### 1 7923172, 5568154, 7455884, 8272417, 93935002, 4659045, 1282577, 5675784, 0891703 ####[facility] [address] [place] [address] Hemoglobin (Bld) [Mass/Vol] 12.6 g/dL Normal 12.0-16.0 [facility] Comment on above: Performed By: #### 1 7050173, 3936195, 6466295, 8570416, 08468474, 7395472, 8277975, 3954407, 2297412 ####[facility] [address] [place] [address] MCH (RBC) [Entitic mass] 28.0 pg Normal 27.0-34.0 [facility] Comment on above: Performed By: #### 1 7451565, 3770949, 4199581, 3229371, 39775271, 0485198, 9007349, 5469042, 3411845 ####[address] [place] [address] MCHC (RBC) [Mass/Vol] 33.3 g/dL Normal 31.4-36.0 [facility] Comment on above: Performed By: #### 1 5820282, 7256227, 5378126, 4370262, 63218458, 6627244, 3758915, 2989839, 2400305 ####[address] [address] MCV (RBC) [Entitic vol] 84.0 fL Normal 80.0-100.0 [facility] Comment on above: Performed By: #### 1 7145239, 5861407, 6055829, 3007812, 58892576, 9174296, 5664905, 1930427, 1597863 ####[address] [place] [address] Platelet mean volume (Bld) [Entitic vol] 7.9 fL Normal 6.4-10.8 [facility] Comment on above: Performed By: #### 1 6178128, 3670794, 9058947, 6103005, 60291506, 7154632, 1031789, 7473949, 6005596 ####[address] [address] Platelets (Bld) [#/Vol] 442.0 E9/L Normal 150. 0-500. 0 [facility] Comment on above: Performed By: #### 1 5611715, 8815388, 3612798, 7387475, 83416078, 1892494, 2069811, 9732303, 8701018 ####[facility] [address] [place] [address] RBC (Bld) [#/Vol] 4.5 E12/L Normal 4.3-5.9 [facility] Comment on above: Performed By: #### 1 9966874, 2625459, 6547084, 8686180, 77396397, 2690142, 4712809, 4892876, 2576000 ####[facility] [address] [place] [address] WBC corrected for nucl RBC Auto (Bld) [#/Vol] 6.8 E9/L Normal 4.0-11.0 [facility] Comment on above: Performed By: #### 1 9983701, 3652001, 2301809, 7364866, 11968686, 9017962, 9085261, 7966062, 9248727 ####[facility] [address] [place] [address] CHEMISTRYOrdered By: Debby Cleveland on 03-07-2023 Acetaminophen [...] (S/P/Bld) [Vol rate/Area] 95 mL/min/1.73 m2 Normal >=59mL/min /1.73 m2 FT Chem S Glucose [Mass/Vol] 95 [...] Consent for Treatmenton 0 Consent for Treatment [id number]:12 7 Normal [facility] ED Clinical Summaryon 2022 ED Clinical Summary (Inserted Image. Nida ble to display) [place] [id number] ED Clinical Summary Person Information Name: ROSE MARY SCHNEIDER/New_Lenny Age: 17 Years : 2005 Sex: Female Language: Wallisian PCP: Fredi Ellington MD Marital Status: Single Phone: [phone] Visit Id: Visit Reason: Suicidal ideation; Intentional ingestion - overdose; SUICIDAL IDEATION Speciality: Acuity: 1 Enc Type: Observation Med Service: Emergency Arrival: 03/07/2023 14:06:45 Discharge: LOS: 000 04:36 Checkin: 03/07/2023 14:06:45 Checkout: 03/07/2023 18:42:28 Dispo Type: Admitted as IP to this [facility] EVENTS: Event Name Event Status Request [...] 18:42:28 03/07/2023 18:42:28 03/07/2023 18:42:28 ADDRESS: [address] [place] [id number] PHYS DOC NOTES: MEDICAL INFORMATION: Prescriptions Given: [...] 6:Obesity; 7:On deep vein thrombosis (DVT) prophylaxis [facility] ED Note-Physicianon 03-07-20 ED Note-Physician Basic Information [...] Oral Susp 240 mL, 50 gm, Oral [id number] [F] 175 mL + acetylSoln-IV [F] 09476 mg, IV Piggyback Dextrose 5% in Water [...] Seizure Procedure/ (more content not included)... Normal [facility] Comment on above: Result Comment: Elec tronically Signed By: Romero MARCANO, Justice\.br\Date and Time Signed: 03/07/23 17:43 EDT ED Patient Education Noteon 03-07-2023 ED Patient Education Note Normal [facility] ED Patient Summaryon 023 ED Patient Summary (Inserted Image. Nida ble to display) [address] [place] [id number] Patient Discharge Instructions Person Information Name: ROSE MARY SCHNEIDER Age: 17 Years Arrival Date: 03/07/2023 14:06:45 Discharge Diagnosis: 1:Intentional acetaminophen overdose; 2:Suicidal ideation; 3:Antihistamines overdose; 4:Depression; 5:Seizure; 6:Obesity; 7:On deep vein thrombosis (DVT) prophylaxis Primary Care Physician: Fredi Ellington MD Provider Information Primary Provider: Justice Browne MD Advanced Shop Superintendent:None The exam and treatment you received in the Emergency Department were for an urgent problem and are not intended as complete care. It is important that you follow up with a doctor, nurse practitioner, or physician?s financial planning assistant for ongoing care. If your symptoms [...] opioids can be used to help relieve thiandix-jr-gjmglc pain and are often prescribed following a [...] with addiction, tell your health child care centre manager and ask for guidance or call [facility] National Helpline at 3-896-122-IXPW. v Source: [place] Department of Health and Human (more content not included)... Normal [facility] Ethanolon 03-07-2023 Ethanol [Mass/Vol] mg/dL Normal <=7 [facility] Comment on above: Performed By: #### 2 582794 #### [facility] [address] [place] [address] HEMATOLOGYOrdered By: SYSTEM SYSTEM on 03-07-2023 Basophils/100 [...] 7.9 fL Normal 6.4 - 10.8 fL [facility] HemeAutoSS Platelets (Bld) [#/Vol] 442.0 E9/L Normal 150. 0 - 500.0 E9/L FT HemeAutoSS RBC (Bld) [#/Vol] 4.5 E12/L Normal 4.3 - 5.9 E12/L [facility] HemeAutoSS WBC corrected for nucl RBC Auto (Bld) [#/Vol] 6.8 E9/L Normal 4.0 - 11.0 E9/L [facility] HemeAutoSS Hep Func Panelon 03-07-2023 Albumin [Mass/Vol] 3.2 g/dL Low 3.3-5.0 [facility] Comment on above: Performed By: #### 2 208466, 3546233 #### [facility] [address] [place] [address] Albumin/Globulin (S) [Mass conc ratio] 0.7 Low 1.1-2.2 [facility] Comment on above: Performed By: #### 2 453312, 4585481 #### [facility] [address] [place] [address] ALP [Catalytic activity/Vol] 45 Int._Unit/L Normal 21-98 [facility] Comment on above: Performed By: #### 2 444775, 7906413 #### [facility] [address] [place] [address] ALT No additional P-5'-P [Catalytic activity/Vol] 12 Int._Unit/L Normal 6-46 [facility] Comment on above: Performed By: #### 2 904484, 6860342 #### [facility] [address] [place] [address] AST [Catalytic activity/Vol] 16 Int._Unit/L Normal 5-43 [facility] Comment on above: Performed By: #### 2 325681, 5996384 #### [facility] [address] [place] [address] Bilirubin [Mass/Vol] 0.2 mg/dL Normal 0.0-1.1 [facility] Comment on above: Performed By: #### 2 427363, 0376907 #### [facility] [address] [place] [address] Bilirubin.indirect [Mass or moles/Vol] UTC Abnormal 0.1-0.9 [facility] Comment on above: Result Comment: Resu lt verified by Discern Rule. Performed result UTC (Unable to Calculate) was sent as an Alpha code due the inability to calculate a valid numeric value. Performed By: #### 2 209274, 8163019 #### [facility] [address] [place] [address] Globulin (S) [Mass/Vol] 4.6 g/dL High 1.4-4.0 [facility] Comment on above: Performed By: #### 2 863968, 5011386 #### [facility] [address] [place] [address] Protein [Mass/Vol] 7.8 g/dL Normal 6.0-7.8 [facility] Comment on above: Performed By: #### 2 268671, 4122624 #### [facility] [address] [place] [address] Bilirubin.direct [Mass/Vol] mg/dL Normal 0.1-0.4 [facility] Comment on above: Performed By: #### 2 416328, 9107027 #### [facility] [address] [place] [address] Bilirubin.indirect [Mass or moles/Vol] UTC Abnormal 0.1-0.9 [facility] Comment on above: Result Comment: Resu lt verified by Discern Rule. Performed result UTC (Unable to Calculate) was sent as an Alpha code due the inability to calculate a valid numeric value. Performed By: #### 1 8178277, 7065512, 9500929, 2151614, 61691248, 5655425, 8227628, 6894704, 5017455 ####[facility] [address] [place] [address] Albumin [Mass/Vol] 3.1 g/dL Low 3.3-5.0 [facility] Comment on above: Performed By: #### 1 2976397, 7733732, 2101505, 2397586, 30095007, 4069997, 5648077, 3226045, 1927692 ####[address] [place] [address] Albumin/Globulin (S) [Mass conc ratio] 0.7 Low 1.1-2.2 [facility] Comment on above: Performed By: #### 1 0635395, 4968809, 1059128, 7377115, 75849173, 4288697, 1118527, 8639584, 1142321 ####[address] [address] ALP [Catalytic activity/Vol] 48 Int._Unit/L Normal 21-98 [facility] Comment on above: Performed By: #### 1 4348934, 1734240, 6112202, 3392641, 31628525, 9130662, 6028715, 2637311, 0662147 ####[address] [address] ALT No additional P-5'-P [Catalytic activity/Vol] 11 Int._Unit/L Normal 6-46 [facility] Comment on above: Performed By: #### 1 1847612, 1992285, 9752705, 1832466, 62103714, 3366452, 7884892, 1345530, 0396100 ####[address] [place] [address] AST [Catalytic activity/Vol] 16 Int._Unit/L Normal 5-43 [facility] Comment on above: Performed By: #### 1 6202415, 8313513, 8062885, 7496959, 14161988, 9285895, 3122889, 2073436, 2315153 ####[address] [address] Bilirubin [Mass/Vol] 0.5 mg/dL Normal 0.0-1.1 [facility] Comment on above: Performed By: #### 1 8740065, 5988784, 8491924, 0200022, 12593219, 0996085, 8141270, 0394444, 4628855 ####[facility] [address] [place] [address] Globulin (S) [Mass/Vol] 4.4 g/dL High 1.4-4.0 [facility] Comment on above: Performed By: #### 1 8753728, 9684544, 6152997, 0565117, 90824158, 2589397, 1571607, 1310884, 7271220 ####[facility] [address] [place] [address] Protein [Mass/Vol] 7.5 g/dL Normal 6.0-7.8 [facility] Comment on above: Performed By: #### 1 7338210, 1175695, 5484871, 4583232, 43559615, 3615837, 5326732, 1643895, 0798786 ####[facility] [address] [place] [address] Bilirubin.direct [Mass/Vol] mg/dL Normal 0.1-0.4 [facility] Comment on above: Performed By: #### 1 8158054, 8043252, 6199354, 8280496, 39293385, 3953860, 0785164, 1798433, 4400382 ####[facility] [address] [place] [address] Lipase Levelon 03-07-2023 Lipase [Catalytic activity/Vol] 24 U/L Normal 13-58 [facility] Comment on above: Performed By: #### 1 3721201, 5634401, 5524305, 5472357, 51490504, 6958607, 3650346, 1127253, 9893332 #### [facility] [address] [place] [address] Monitor Recordon 03-07-2023 Monitor Record [id number]:1 27 [facility] Monitor Record [id number]#[id number]:1 27 [facility] Monitor Record [id number]#[id number]:1 27 [facility] Pre-Arrival Noteon 3 Pre-Arrival Note Pre-Arrival Summary Name: , Current Date: 03/07/2023 14:11:15 EDT Gender: Date of : Age: 17 Pre-Arrival Type: EMS ETA: 03/07/2023 14:33:00 EDT Primary Care Physician: Presenting Problem: overdose tylenol PM Pre-Arrival User: Julianne Sanford RN Referring Source: Location: MD Completion Date/Time: 03/07/2023 14:03:00 [facility] Emergency Department Pre-Hospital Report Form ____ Vital Signs: Pre-Hospital Report: Treatment in Route: Response to Treatment: Misc. Issues: Normal [facility] Progress Note-Nurseon 2022 Progress Note-Nurse Poison Control aj d and spoke with Chiquis who verbalized [address] Browne aware [facility] SEROLOGYOrdered By: Kizzy Newby on 03-07-2023 Beta hCG Ql Negative (03/07/23 2:43 PM) Normal [facility] Man Sero Salicylateon 03-07-2023 Salicylates [Mass/Vol] mg/dL Low 6-29 [facility] Comment on above: Performed By: #### 1 [id number], [id number], [id number], [id number], [id number], [id number], [id number] #### [facility] [address] [place] [address] U Drug Screenon 03-07-2023 Amphetamines Screen method >1000 ng/mL Ql (U) Negative Normal Negative [facility] Comment on above: Result Comment: Nega tive Cutoff: <1000 ng/mL Performed By: #### 2 [id number] #### [facility] [address] [place] [address] Barbiturates Screen Ql (U) Negative Normal Negative [facility] Comment on above: Result Comment: Nega tive Cutoff: <200 ng/mL Performed By: #### 2 [id number] #### [facility] [address] [place] [address] Benzodiazepines Ql (U) Negative Normal Negative [facility] Comment on above: Result Comment: Nega tive Cutoff: <200 ng/mL Performed By: #### 2 [id number] #### [facility] [address] [place] [address] Cocaine Ql (U) Negative Normal Negative [facility] Comment on above: Result Comment: Nega tive Cutoff: <300 ng/mL Performed By: #### 2 [id number] #### [facility] [address] [place] [address] Opiates Screen Ql (U) Negative Normal Negative [facility] Comment on above: Result Comment: Nega tive Cutoff: <300 ng/mL Performed By: #### 2 [id number] #### [facility] [address] [place] [address] Phencyclidine Screen method >25 ng/mL Ql (U) Negative Normal Negative [facility] Comment on above: Result Comment: Nega tive Cutoff: <25 ng/mL These drug screen results are to be used for medical (i.e., treatment) purposes only. Unconfirmed drug screening results must not be used for non-medical purposes (e.g., employment testing, legal testing). Performed By: #### 2 [id number] #### [facility] [address] [place] [address] Tetrahydrocannabinol Screen method >50 ng/mL Ql (U) Negative Normal Negative [facility] Comment on above: Result Comment: Nega tive Cutoff: <50 ng/mL Performed By: #### 2 [id number] #### [facility] [address] [place] [address] XR Chest Single Viewon 03-07 XR Chest [...] mGy = na DAP = na Normal [facility] eGFRon 03-07-2023 GFR/1.73 sq M.predicted among non-blacks MDRD (S/P/Bld) [Vol rate/Area] 95 mL/min/1.73 m2 Normal >=59 [facility] Comment on above: Order Comment: Order added by Discern Expert. Result Comment: [employer] marleny kidney disease could be indicated at eGFR's of less than 60 mL/min/1.73m2. Kidney failure is indicated at less than 15 mL/min/1.73m2. Performed By: #### 1 [id number], [id number], [id number], [id number], [id number], [id number], [id number], [id number], [id number] ####[facility] [address] [place] [address] B hCG Qualon 02-27-2023 Beta hCG Ql Negative Normal [facility] Comment on above: Performed By: #### 2 [id number] #### [facility] [address] [place] [address] Consent for Treatmenton 02-01 Consent for Treatment [id number]:12 7 Normal [facility] Physician Orderon 02-27-2023 Physician Order [id number]:1 27 Normal [facility] SEROLOGYOrdered By: Kizzy Kirk on 02-27-2023 Beta hCG Ql Negative (02/27/23 12:39 PM) Normal [facility] Man Sero CHEMISTRYOrdered By: SYSTEM SYSTEM on 11-13-2022 Acetaminophen [Mass/Vol] microgram/mL Low 15 - 30 mcg/mL [facility] Remisol Albumin [Mass/Vol] 3.3 g/dL Normal 3.3 - 5.0 gm/dL [facility] Remisol Albumin/Globulin [Mass ratio] 0.9 {ratio} Low 1.1 - 2.2 [facility] Remisol ALP [Catalytic activity/Vol] 45 [iU]/d Low 48 - 283 Int._Unit/ L [facility] Remisol ALT No additional P-5'-P [Catalytic activity/Vol] 18 [iU]/d Normal 6 - 46 Int._Unit/ L [facility] Remisol Anion gap [Moles/Vol] 10 mmol/L Normal 6 - 16 mEq/L [facility] Remisol AST [Catalytic activity/Vol] 19 [iU]/d Normal 5 - 43 Int._Unit/ L [facility] Remisol Bilirubin [Mass/Vol] 0.5 mg/dL Normal [...] HemeAutoSS Platelets (Bld) [#/Vol] 397.0 E9/L Normal 150. 0 - 450.0 E9/L [facility] HemeAutoSS RBC (Bld) [#/Vol] 4.3 E12/L Normal 4.1 - 5.3 E12/L [facility] HemeAutoSS WBC corrected for nucl RBC Auto (Bld) [#/Vol] 7.1 E9/L Normal 4.0 - 10.5 E9/L [facility] HemeAutoSS SEROLOGYOrdered By: Cyn ward on 11-13-2022 Beta hCG Ql Negative (11/13/22 2:56 PM) Normal [facility] Man Sero URINALYSISOrdered By: Marilyn Rivas on [...] PM) Normal Negative [facility] UA Auto SS [place].plasma/[place]. RBC (Bld) [Mass ratio] 0-3 /HPF Normal 0-3/HPF [...] Desc Clean Catch (11/13/22 2:29 PM) Normal [facility] UA Auto SS Urobilinogen Qn (U) 0.7821289 {Ed'U}/dL Normal 0.0 - 1.0 EU/dL [facility] UA Auto SS WBC Auto Ql (U) Trace *ABN* (11/13/22 2:29 PM) Invalid Interpretation Code Negative [facility] UA Auto SS WBC LM.HPF (Urine sed) [#/Area] 0-5 /HPF Normal 0-5/HPF [facility] UA Auto SS CBC AUTO DIFFon 11-05-2022 BASO # 0.0 103/ul Normal 0.0-0.1 [facility] Comment on above: Performed By: #### C BC #### [facility] [address] [place] [address] Dr. Tara Jackson Basophils/100 WBC (Bld) 0.5 % Normal 0.2-2.0 [facility] Comment on above: Performed By: #### C BC #### [facility] [address] [place] [address] Dr. Tara Jackson EO # 0.3 103/ul Normal 0.0-0.7 [facility] Comment on above: Performed By: #### C BC #### [facility] [address] [place] [address] Dr. Tara Jackson Eosinophils/100 WBC (Bld) 4.9 % Normal 0.9-7.0 [facility] Comment on above: Performed By: #### C BC #### [facility] [address] [place] [address] Dr. Tara Jackson Erythrocyte distribution width (RBC) [Ratio] 12.8 % Normal 11.0-15.0 [facility] Comment on above: Performed By: #### C BC #### [facility] [address] [place] [address] Dr. Tara Jackson Hematocrit (Bld) [Volume fraction] 35.8 % Critically low 36.0-48.0 [facility] Comment on above: Performed By: #### C BC #### [facility] [address] [place] [address] Dr. Tara Jackson Hemoglobin (Bld) [Mass/Vol] 11.8 g/dL Critically low 12.0-16.0 [facility] Comment on above: Performed By: #### C BC #### [facility] [address] [place] [address] Dr. Tara Jackson IG # 0.01 10e3/ul Normal 0.00-0.03 [facility] Comment on above: Performed By: #### C BC #### [facility] [address] [place] [address] Dr. Traa Jackson IG % 0.2 % Normal 0.0-0.5 [facility] Comment on above: Performed By: #### C BC #### [facility] [address] [place] [address] Dr. Tara Jackson LYMPH # 1.7 103/ul Normal 1.2-3.8 [facility] Comment on above: Performed By: #### C BC #### [facility] [address] [place] [address] Dr. Tara Jackson Lymphocytes/100 WBC (Bld) 30.2 % Normal 20.5-60.0 [facility] Comment on above: Performed By: #### C BC #### [facility] [address] [place] [address] Dr. Tara Jackson MANUAL DIFF REQ NO Normal [facility] Comment on above: Performed By: #### C BC #### [facility] [address] [place] [address] Dr. Tara Jackson MCH (RBC) [Entitic mass] 27.6 pg Normal 26.7-34.0 [facility] Comment on above: Performed By: #### C BC #### [facility] [address] [place] [address] Dr. Tara Jackson MCHC (RBC) [Mass/Vol] 33.0 g/dL Normal 29.9-35.2 [facility] Comment on above: Performed By: #### C BC #### [facility] [address] [place] [address] Dr. Tara Jackson MCV (RBC) [Entitic vol] 83.8 fL Normal 79.1-95.6 [facility] Comment on above: Performed By: #### C BC #### [facility] [address] [place] [address] Dr. Tara Jackson MONO # 0.5 103/ul Normal 0.3-0.8 [facility] Comment on above: Performed By: #### C BC #### [facility] [address] [place] [address] Dr. Tara Jackson Monocytes/100 WBC (Bld) 7.9 % Normal 1.7-12.0 [facility] Comment on above: Performed By: #### C BC #### [facility] [address] [place] [address] Dr. Tara Jackson NEUT # 3.2 103/ul Normal 1.4-6.5 [facility] Comment on above: Performed By: #### C BC #### [facility] [address] [place] [address] Dr. Tara Jackson Neutrophils/100 WBC (Bld) 56.3 % Normal 43.0-75.0 [facility] Comment on above: Performed By: #### C BC #### [facility] [address] [place] [address] Dr. Tara Jackson Platelet mean volume (Bld) [Entitic vol] 9.0 fL Critically low 9.5-13.5 [facility] Comment on above: Performed By: #### C BC #### [facility] [address] [place] [address] Dr. Tara Jackson PLT 373 103/ul Normal 150-450 [facility] Comment on above: Performed By: #### C BC #### [facility] [address] [place] [address] Dr. Tara Jackson RBC 4.27 106/ul Normal 3.40-5.30 [facility] Comment on above: Performed By: #### C BC #### [facility] [address] [place] [address] Dr. Tara Jackson WBC 5.7 103/ul Normal 4.0-11.0 [facility] Comment on above: Performed By: #### C BC #### [facility] [address] [address] [address] 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 Admission #: [id number] Family : TEENA TRAN . Order #: [id number] CLICK HERE TO VIEW EXAM ECHOCARDIOGRAM REPORT [...] Tafoya M.D. on 11/06/2022 at 18:40 Normal [facility] PREG HCG QUALon 11-05-2022 , QUAL Negative Normal NEGATIVE [facility] Comment on above: Performed By: #### C BC #### [facility] [address] [place] [address] Dr. Tara Jackson PROF CHEM 8 (BAS METB)on Anion gap [Moles/Vol] 11.4 mmol/L Normal [facility] Comment on above: Performed By: #### C VDTBH #### [facility] [address] [place] [address] Dr. Tara Jackson Calcium [Mass/Vol] 8.5 mg/dL Normal 8.5-10.1 [facility] Comment on above: Performed By: #### C VDTBH #### [facility] [address] [place] [address] Dr. Tara Jackson Chloride [Moles/Vol] 103 mmol/L Normal 98-107 [facility] Comment on above: Performed By: #### C VDTBH #### [facility] [address] [place] [address] Dr. Tara Jackson CO2 [Moles/Vol] 27.5 mmol/L Normal 21.0-32.0 [facility] Comment on above: Performed By: #### C VDTBH #### [facility] [address] [place] [address] Dr. Tara Jackson Creatinine [Mass/Vol] 0.67 mg/dL Normal 0.55-1.02 [facility] Comment on above: Performed By: #### C VDTBH #### [facility] [address] [place] [address] Dr. Tara Jackson Glucose [Mass/Vol] 93 mg/dL Normal 74-106 [facility] Comment on above: Performed By: #### C VDTBH #### [facility] [address] [place] [address] Dr. Tara Jackson Potassium [Moles/Vol] 3.9 mmol/L Normal 3.5-5.1 [facility] Comment on above: Performed By: #### C VDTBH #### [facility] [address] [address] [address] Tara Jackson Sodium [Moles/Vol] 138 mmol/L Normal 136-145 [facility] Comment on above: Performed By: #### C VDTBH #### [facility] [address] [address] [address] Tara Jackson Urea nitrogen [Mass/Vol] 15.0 mg/dL Normal 6.4-19.3 [facility] Comment on above: Performed By: #### C VDTBH #### [facility] [address] [address] [address] Tara Jackson Urea nitrogen/Creatinine [Mass ratio] 22.4 mg/mg Normal [facility] Comment on above: Performed By: #### C VDTBH #### [facility] [address] [address] [address] Tara Jackson CHEMISTRYOrdered By: SYSTEM SYSTEM [...] activity/Vol] 61 [iU]/d Normal 48 - 283 Int._Unit/ L [facility] Remisol ALT No additional P-5'-P [Catalytic activity/Vol] 15 [iU]/d Normal 6 - 46 Int._Unit/ L [facility] Remisol Anion gap [Moles/Vol] 12 mmol/L Normal 6 - 16 mEq/L [facility] Remisol AST [Catalytic activity/Vol] 17 [iU]/d Normal 5 - 43 Int._Unit/ L [facility] Remisol Bilirubin [Mass/Vol] 0.4 mg/dL Normal [...] HemeAutoSS Platelets (Bld) [#/Vol] 415.0 E9/L Normal 150. 0 - 450.0 E9/L [facility] HemeAutoSS RBC (Bld) [...] 10-10-2022 HCG.beta subunit (U) [Moles/Vol] Negative Normal [facility] Man Sero CHEMISTRYOrdered By: SYSTEM SYSTEM on [...] mg/dL FT Remisol Urea nitrogen/Creatinine [Mass ratio] 15 mg/mg Normal 10 - 20 [facility] Remisol COAGULATIONOrdered By: Brennon Cleveland on 10-06-2022 aPTT Coag (PPP) [Time] 35.1 s Normal 25.1 - 36.5 second(s) [facility] Auto Coag INR Coag (PPP) [Relative time] 1.0 {INR} Invalid Interpretation Code [facility] Auto Coag PT Coag (PPP) [Time] 11.0 s Normal 9.4 - 1 2.5 second(s) [facility] Auto Coag HEMATOLOGYOrdered By: SYSTEM SYSTEM on 10-06-2022 Basophils/100 WBC (Bld) 0.3 % Normal 0.0 - 2.0 % [facility] HemeAutoSS Basophils/Leukocytes Auto (Bld) [Pure # fraction] 0.0 E9/L Normal 0.0 - 0.1 E9/L [facility] HemeAutoSS Eosinophils/100 WBC (Bld) 5.0 % Normal [...] HemeAutoSS Platelets (Bld) [#/Vol] 356.0 E9/L Normal 150. 0 - 450.0 E9/L [facility] HemeAutoSS RBC (Bld) [#/Vol] 4.2 E12/L Normal 4.1 - 5.3 E12/L [facility] HemeAutoSS WBC corrected for nucl RBC Auto (Bld) [#/Vol] 8.2 E9/L Normal 4.0 - 10.5 E9/L [facility] HemeAutoSS SEROLOGYOrdered By: Debby Cleveland on 10-06-2022 HCG.beta subunit (U) [Moles/Vol] Negative Normal [facility] Man Sero URINALYSISOrdered By: Lady Cleveland on [...] AM) Normal Negative [facility] UA Auto SS [place].plasma/[place]. RBC (Bld) [Mass ratio] 0-3 /HPF Normal 0-3/HPF [facility] UA Auto SS Mucus Ql (Urine sed) 2+ (10/06/22 1:20 AM) Normal [facility] UA Auto SS Nitrite Ql (U) Negative (10/06/22 1:20 AM) Normal Negative [facility] UA Auto SS pH (U) 6.0 *NA* (10/06/22 1:20 AM) Invalid Interpretation Code 5.0 - 9.0 [facility] UA Auto SS Protein (U) [Mass/Vol] Negative (10/06/22 1:20 AM) Normal Negative [facility] UA Auto SS Specific gravity (U) [Rel density] >=1.030 *NA* (10/06/22 1:20 AM) Invalid Interpretation Code 1.005 - 1.030 [facility] UA Auto SS UA Spec Desc Clean Catch (10/06/22 1:20 AM) Normal [facility] UA Auto SS Urobilinogen Qn (U) [id number] {Ed'U}/dL Normal 0.0 - 1.0 EU/dL [facility] UA Auto SS WBC Auto Ql (U) Negative (10/06/22 1:20 AM) Normal Negative [facility] UA Auto SS WBC LM.HPF (Urine sed) [#/Area] 0-5 /HPF Normal 0-5/HPF [facility] UA Auto SS CHEMISTRYOrdered By: Lab ROP User on 10-05-2022 Glucose [Mass/Vol] 131 mg/dL High 55 - 99 mg/dL [facility] POC Subsection Comment on above: Result Comment: Shanique percy Meter POC Device SN [id number] Invalid Interpretation Code [facility] POC Subsection POC User ID [id number] Invalid Interpretation Code [facility] POC Subsection POC Username PENNIE GARCIABakari Invalid Interpretation Code [facility] POC Subsection LEVETIRACETAM, SERUM OR PLAS MAon 09-27-2022 Levetiracetam, S 13.6 ug/mL Normal 10.0-40.0 [facility] Comment on above: Performed By: #### C BC #### [facility] [address] [place] [address] Dr. Tara Jackson INSULINon 09-26-2022 Insulin 21.0 uIU/mL Normal 2.6-24.9 [facility] Comment on above: Performed By: #### I NSULIN #### [facility] [address] [place] [address] Dr. Tara Jackson BILIRUBIN CONJUGATED (DIRECT )on 09-25-2022 BILI, CONJUGATED 0.1 mg/dL Normal 0.0-0.2 [facility] Comment on above: Performed By: #### C VDTBH #### [facility] [address] [place] [address] Dr. Tara Jackson CBC AUTO DIFFon 09-25-2022 BASO # 0.0 103/ul Normal 0.0-0.1 [facility] Comment on above: Performed By: #### C VDTBH #### [facility] [address] [place] [address] Dr. Tara Jackson Basophils/100 WBC (Bld) 0.6 % Normal 0.2-2.0 [facility] Comment on above: Performed By: #### C VDTBH #### [facility] [address] [place] [address] Dr. Tara Jackson EO # 0.3 103/ul Normal 0.0-0.7 [facility] Comment on above: Performed By: #### C VDTBH #### [facility] [address] [place] [address] Dr. Tara Jackson Eosinophils/100 WBC (Bld) 4.5 % Normal 0.9-7.0 [facility] Comment on above: Performed By: #### C VDTBH #### [facility] [address] [place] [address] Dr. Tara Jackson Erythrocyte distribution width (RBC) [Ratio] 12.2 % Normal 11.0-15.0 [facility] Comment on above: Performed By: #### C VDTBH #### [facility] [address] [place] [address] Dr. Tara Jackson Hematocrit (Bld) [Volume fraction] 38.4 % Normal 36.0-48.0 [facility] Comment on above: Performed By: #### C VDTBH #### [facility] [address] [place] [address] Dr. Tara Jackson Hemoglobin (Bld) [Mass/Vol] 13.0 g/dL Normal 12.0-16.0 [facility] Comment on above: Performed By: #### C VDTBH #### [facility] [address] [place] [address] Dr. Tara Jackson IG # 0.01 10e3/ul Normal 0.00-0.03 [facility] Comment on above: Performed By: #### C VDTBH #### [facility] [address] [place] [address] Dr. Tara Jackson IG % 0.2 % Normal 0.0-0.5 [facility] Comment on above: Performed By: #### C VDTBH #### [facility] [address] [place] [address] Dr. Tara Jackson LYMPH # 1.8 103/ul Normal 1.2-3.8 [facility] Comment on above: Performed By: #### C VDTBH #### [facility] [address] [place] [address] Dr. Tara Jackson Lymphocytes/100 WBC (Bld) 28.7 % Normal 20.5-60.0 [facility] Comment on above: Performed By: #### C VDTBH #### [facility] [address] [place] [address] Dr. Tara Jackson MANUAL DIFF REQ NO Normal [facility] Comment on above: Performed By: #### C VDTBH #### [facility] [address] [place] [address] Dr. Tara Jackson MCH (RBC) [Entitic mass] 28.6 pg Normal 26.7-34.0 [facility] Comment on above: Performed By: #### C VDTBH #### [facility] [address] [place] [address] Dr. Tara Jackson MCHC (RBC) [Mass/Vol] 33.9 g/dL Normal 29.9-35.2 [facility] Comment on above: Performed By: #### C VDTBH #### [facility] [address] [place] [address] Dr. Tara Jackson MCV (RBC) [Entitic vol] 84.4 fL Normal 79.1-95.6 [facility] Comment on above: Performed By: #### C VDTBH #### [facility] [address] [place] [address] Dr. Tara Jackson MONO # 0.4 103/ul Normal 0.3-0.8 [facility] Comment on above: Performed By: #### C VDTBH #### [facility] [address] [place] [address] Dr. Tara Jackson Monocytes/100 WBC (Bld) 6.5 % Normal 1.7-12.0 [facility] Comment on above: Performed By: #### C VDTBH #### [facility] [address] [place] [address] Dr. Tara Jackson NEUT # 3.7 103/ul Normal 1.4-6.5 [facility] Comment on above: Performed By: #### C VDTBH #### [facility] [address] [place] [address] Dr. Tara Jackson Neutrophils/100 WBC (Bld) 59.5 % Normal 43.0-75.0 [facility] Comment on above: Performed By: #### C VDTBH #### [facility] [address] [place] [address] Dr. Tara Jackson Platelet mean volume (Bld) [Entitic vol] 9.0 fL Critically low 9.5-13.5 [facility] Comment on above: Performed By: #### C VDTBH #### [facility] [address] [place] [address] Dr. Tara Jackson PLT 401 103/ul Normal 150-450 [facility] Comment on above: Performed By: #### C VDTBH #### [facility] [address] [place] [address] Dr. Tara Jackson RBC 4.55 106/ul Normal 3.40-5.30 [facility] Comment on above: Performed By: #### C VDTBH #### [facility] [address] [place] [address] Dr. Tara Jackson WBC 6.2 103/ul Normal 4.0-11.0 [facility] Comment on above: Performed By: #### C VDTBH #### [facility] [address] [place] [address] Dr. Tara Jackson FREE THYROXINE INDEX T7on FTI 2.77 Normal 1.30-4.50 [facility] Comment on above: Performed By: #### C BC #### [facility] [address] [place] [address] Dr. Tara Jackson T3U 36.0 % Normal 30.0-39.0 [facility] Comment on above: Performed By: #### C BC #### [facility] [address] [place] [address] Dr. Tara Jackson T4 [Mass/Vol] 7.70 ug/dL Normal 5.40-10.60 [facility] Comment on above: Performed By: #### C BC #### [facility] [address] [place] [address] Dr. Tara Jackson GLYCOHEMOGLOBIN A1Con 2022 ADA RECOMMENDATION SEE BELOW Normal [facility] Comment on above: Result Comment: ADA RECOMMENDED LIMIT 4.0 - 6.0 ADA THERAPEUTIC TARGET < 7.0 ACTION SUGGESTED > 7.0 Performed By: #### A 1C #### [facility] [address] [place] [address] Dr. Tara Jackson Glucose [Mass/Vol] 103 mg/dL Normal [facility] Comment on above: Performed By: #### A 1C #### [facility] [address] [place] [address] Dr. Tara Jackson HbA1c (Bld) [Mass fraction] 5.2 % Normal 4.5-6.2 [facility] Comment on above: Performed By: #### A 1C #### [facility] [address] [place] [address] Dr. Tara Jackson IRONon 09-25-2022 Iron [Mass/Vol] 33.0 ug/dL Critically low 50.0-170.0 [facility] Comment on above: Performed By: #### C VDTB #### [facility] [address] [place] [address] Dr. Tara Jackson LIPID PROFILEon 09-25-2022 CHOL-HDL RATIO NORM SEE BELOW Normal [facility] Comment on above: Result Comment: 3.3 - 4.4 LOW RISK 4.4 - 7.1 AVERAGE RISK 7.1 - 11.0 MODERATE RISK >11.0 HIGH RISK Performed By: #### C BC #### [facility] [address] [place] [address] Dr. Tara Jackson Cholesterol [Mass/Vol] 189 mg/dL Normal 104-227 [facility] Comment on above: Performed By: #### C BC #### [facility] [address] [place] [address] Dr. Tara Jackson Cholesterol in HDL [Mass/Vol] 36 mg/dL Normal 29-69 [facility] Comment on above: Performed By: #### C BC #### [facility] [address] [address] [address] Tara Jackson Cholesterol in LDL [Mass/Vol] 128.4 mg/dL Normal 46.0-140.0 [facility] Comment on above: Performed By: #### C BC #### [facility] [address] [place] [address] Dr. Tara Jackson Cholesterol.total/Vianey sterol in HDL [Mass ratio] 5.3 {ratio} Normal [facility] Comment on above: Performed By: #### C BC #### [facility] [address] [place] [address] Dr. Tara Jackson HDL NORMAL > or = 60 mg/dl - LO W CARDIOVASCULAR RISK <40 mg/dl - HIGH CARDIOVASCULAR RISK Normal [facility] Comment on above: Performed By: #### C BC #### [facility] [address] [place] [address] Dr. Tara Jackson LDL CALC NORMAL SEE BELOW Normal [facility] Comment on above: Result Comment: <100 mg/dl OPTIMAL 100 - 129 mg/dl NEAR OR ABOVE OPTIMAL 130 - 159 mg/dl BORDERLINE HIGH 160 - 189 mg/dl HIGH >190 mg/dl VERY HIGH Performed By: #### C BC #### [facility] [address] [place] [address] Dr. Tara Jackson Triglyceride [Mass/Vol] 123 mg/dL Normal 53-208 [facility] Comment on above: Performed By: #### C BC #### [facility] [address] [place] [address] Dr. Tara Jackson VLDL CALC 24.6 mg/dL Normal [facility] Comment on above: Performed By: #### C BC #### [facility] [address] [place] [address] Dr. Tara Jackson PROF 14(COMP METB)on 023 Albumin [Mass/Vol] 3.2 g/dL Critically low 3.4-5.0 [facility] Comment on above: Performed By: #### C BC #### [facility] [address] [place] [address] Dr. Tara Jackson Albumin/Globulin [Mass ratio] 0.7 {ratio} Normal [facility] Comment on above: Performed By: #### C BC #### [facility] [address] [place] [address] Dr. Tara Jackson ALP [Catalytic activity/Vol] 80 U/L Normal 65-260 [facility] Comment on above: Performed By: #### C BC #### [facility] [address] [place] [address] Dr. Tara Jackson ALT [Catalytic activity/Vol] 18 U/L Normal 14-59 [facility] Comment on above: Performed By: #### C BC #### [facility] [address] [place] [address] Dr. Tara Jackson Anion gap [Moles/Vol] 9.0 mmol/L Normal [facility] Comment on above: Performed By: #### C BC #### [facility] [address] [place] [address] Dr. Tara Jackson AST [Catalytic activity/Vol] 18 U/L Normal 15-37 [facility] Comment on above: Performed By: #### C BC #### [facility] [address] [place] [address] Dr. Tara Jackson Bilirubin [Mass/Vol] 0.2 mg/dL Normal 0.2-1.0 [facility] Comment on above: Performed By: #### C BC #### [facility] [address] [place] [address] Dr. Tara Jackson Calcium [Mass/Vol] 9.1 mg/dL Normal 8.5-10.1 [facility] Comment on above: Performed By: #### C BC #### [facility] [address] [place] [address] Dr. Tara Jackson Chloride [Moles/Vol] 101 mmol/L Normal 98-107 [facility] Comment on above: Performed By: #### C BC #### [facility] [address] [place] [address] Dr. Tara Jackson CO2 [Moles/Vol] 30.2 mmol/L Normal 21.0-32.0 [facility] Comment on above: Performed By: #### C BC #### [facility] [address] [address] [address] Tara Jackson Creatinine [Mass/Vol] 0.80 mg/dL Normal 0.55-1.02 [facility] Comment on above: Performed By: #### C BC #### [facility] [address] [address] [address] Tara Jackson Globulin (S) [Mass/Vol] 4.3 g/dL Normal [facility] Comment on above: Performed By: #### C BC #### [facility] [address] [place] [address] Dr. Tara Jackson Glucose [Mass/Vol] 101 mg/dL Normal 74-106 [facility] Comment on above: Performed By: #### C BC #### [facility] [address] [place] [address] Dr. Tara Jackson Potassium [Moles/Vol] 4.2 mmol/L Normal 3.5-5.1 [facility] Comment on above: Performed By: #### C BC #### [facility] [address] [place] [address] Dr. Tara Jackson Protein [Mass/Vol] 7.5 g/dL Normal 6.4-8.2 [facility] Comment on above: Performed By: #### C BC #### [facility] [address] [place] [address] Dr. Tara Jackson Sodium [Moles/Vol] 136 mmol/L Normal 136-145 [facility] Comment on above: Performed By: #### C BC #### [facility] [address] [address] [address] Tara Jackson Urea nitrogen [Mass/Vol] 11.0 mg/dL Normal 6.4-19.3 [facility] Comment on above: Performed By: #### C BC #### [facility] [address] [place] [address] Dr. Tara Jackson Urea nitrogen/Creatinine [Mass ratio] 13.8 mg/mg Normal [facility] Comment on above: Performed By: #### C BC #### [facility] [address] [place] [address] Dr. Tara Jackson TSHon 09-25-2022 TSH 5.240 uIU/mL Critically high 0.516-4.13 0 [facility] Comment on above: Performed By: #### C BC #### [facility] [address] [place] [address] Dr. Tara Jackson Covid-19 PCR ([facility])on SARS-CoV-2 (COVID-19) RNA CHRISTIAN+probe Ql (Unsp spec) Not detected Normal NOT DETECTED [facility] Comment on above: Result Comment: This test is not yet approved or cleared by the [place] FDA. When there are no FDA-approved or cleared tests available, and other criteria are met, FDA can make tests available under an emergency access mechanism called an Emergency Use Authorization (EUA). The EUA for this test is supported by the Radiation / Chemistry Technician of Health and Human Service's (HHS's) declaration [...] SARS-CoV-2. Performed By: #### C VDTBH #### [facility] [address] [place] [address] Dr. Tara Jackson INFLUENZA A AND B AGon 09-11 INFLUANEGH SEE BELOW Normal [facility] Comment on above: Result Comment: Nega tive for Flu A protein angiten. Infection due to Flu A cannot be ruled out. Flu A angiten in the sample may be below the detection limit of the test. Performed By: #### I NFLUAB #### [facility] [address] [place] [address] Dr. Tara Jackson INFLUBNEGH SEE BELOW Normal [facility] Comment on above: Result Comment: Nega tive for Flu B protein antigen. Infection due to Flu B cannot be ruled out. Flu B antigen in the sample may be below the detection limit of the test. Performed By: #### I NFLUAB #### [facility] [address] [place] [address] Dr. Tara Jackson INFLUENZA A AG Negative Normal NEGATIVE SEE COMMENT [facility] Comment on above: Performed By: #### I NFLUAB #### [facility] [address] [place] [address] Dr. Tara Jackson INFLUENZA B AG Negative Normal NEGATIVE SEE COMMENT [facility] Comment on above: Performed By: #### I NFLUAB #### [facility] [address] [place] [address] Dr. Tara Jackson [facility]on SARS-CoV-2 (COVID-19) RNA CHRISTIAN+probe Ql (Unsp spec) Not detected Normal NOT DETECTED [facility] Comment on above: Result Comment: When diagnostic [...] for this test is supported by the [place] of Health and Human Service's declaration that [...] used). Performed By: #### C VDTBH #### [facility] [address] [place] [address] Dr. Tara Jackson INFLUENZA A AND B AGon 08-05 INFLUANE SEE BELOW Normal [facility] Comment on above: Result Comment: Nega tive for Flu A protein angiten. Infection due to Flu A cannot be ruled out. Flu A angiten in the sample may be below the detection limit of the test. Performed By: #### I NFLUAB #### [facility] [address] [address] [address] Tara Jackson [facility] SEE BELOW Normal [facility] Comment on above: Result Comment: Nega tive for Flu B protein antigen. Infection due to Flu B cannot be ruled out. Flu B antigen in the sample may be below the detection limit of the test. Performed By: #### I NFLUAB #### [facility] [address] [address] [address] Tara Jackson INFLUENZA A AG Negative Normal NEGATIVE SEE COMMENT [facility] Comment on above: Performed By: #### I NFLUAB #### [facility] [address] [address] [address] Tara Jackson INFLUENZA B AG Negative Normal NEGATIVE SEE COMMENT [facility] Comment on above: Performed By: #### I NFLUAB #### [facility] [address] [address] [address] Tara Jackson Albumin [Mass/volume] in Ser um or PlasmaOrdered By: Fredi Ellington on 07-31-2022 Albumin [Mass/Vol] 3.2 g/dL 3.2-5.5 [facility] Basophils Auto (Bld) [#/Vol] Ordered By: Fredi Ellington on 07-31-2022 Basophils (Bld) [#/Vol] 0.0 10*3/uL 0.0-0.[address] [facility] Basophils/100 WBC Auto (Bld) Ordered By: Fredi Ellington on 07-31-2022 Basophils/100 WBC (Bld) 0.4 % . [facility] Cholesterol [Mass/volume] in Serum or PlasmaOrdered By: Fredi Ellington on 07-31-2022 Cholesterol [Mass/Vol] 264 mg/dL 140-200 [facility] Comment on above: Chol less than 200 m g/dl low riskChol 201-239 mg/dl borderline riskChol 240 mg/dl and greater high risk Cholesterol in LDL Calc [Mas s/Vol]Ordered By: Fredi Ellington on 07-31-2022 Cholesterol in LDL [Mass/Vol] 168 mg/dL 0-[address] [facility] Comment on above: LDL ATP III CLASSIFI CATIONLDL less than 100 mg/dL OptimalLDL 100-129 mg/dL Near or above optimalLDL 130-159 mg/dL Borderline highLDL 160-189 mg/dL HighLDL greater than 189 mg/dL Very high Cholesterol in VLDL Calc [Ma ss/Vol]Ordered By: Fredi Ellington on 07-31-2022 Cholesterol in VLDL [Mass/Vol] 17 mg/dL [facility] Creatinine and Glomerular fi ltration rate.predicted panel (S/P/Bld)Ordered By: Fredi Ellington on 07-31-2022 Creatinine [Mass/Vol] 0.87 mg/dL 0.44-1.03 [facility] Eosinophils Auto (Bld) [#/Vo l]Ordered By: Fredi Ellington on 07-31-2022 Eosinophils (Bld) [#/Vol] 0.0 10*3/uL 0.0-0.[address] [facility] Eosinophils/100 WBC Auto (Bl d)Ordered By: Fredi Ellington on 07-31-2022 Eosinophils/100 WBC (Bld) 0.5 % . [facility] Erythrocyte distribution wid th Auto (RBC) [Ratio]Ordered By: Fredi Ellington on 07-31-2022 Erythrocyte distribution width (RBC) [Ratio] 13.2 % 11.9-15.[address] [facility] Estimated glomerular filtrat ion rate (GFR) non- AmericanOrdered By: Fredi Ellington on 07-31-2022 GFR/1.73 sq M.predicted among non-blacks MDRD (S/P/Bld) [Vol rate/Area] N/A [facility] Globulin Calc (S) [Mass/Vol] Ordered By: Fredi Ellington on 07-31-2022 Globulin (S) [Mass/Vol] 3.3 g/dL [facility] Glucose mean value [Mass/vol ume] in Blood Estimated from glycated hemoglobinOrdered By: Fredi Ellington on 07-31-2022 Average glucose Estimated from glycated hemoglobin (Bld) [Mass/Vol] 114 mg/dL [facility] Hematocrit Auto (Bld) [Volum e fraction]Ordered By: Fredi Ellington on 07-31-2022 Hematocrit (Bld) [Volume fraction] 38.5 % 36.0-46.[address] [facility] Hemoglobin A1c percentageOrd ered By: Fredi Ellington on 07-31-2022 HbA1c (Bld) [Mass fraction] 5.6 % 4.3-5.[address] [facility] Comment on above: Increased risk for d iabetes: 5.7 - 6.4diabetes: >6.4glycemic control for adults with diabetes: <7.0 Hemoglobin [Mass/volume] in BloodOrdered By: Fredi Ellington on 07-31-2022 Hemoglobin (Bld) [Mass/Vol] 12.7 g/dL 12.0-16.[address] [facility] Iron [Mass/volume] in Serum or PlasmaOrdered By: Fredi Ellington on 07-31-2022 Iron [Mass/Vol] 74 ug/dL 40-[address] [facility] Leukocytes [#/volume] correc gamaliel for nucleated erythrocytes in Blood by Automated counOrdered By: Fredi Ellington on 07-31-2022 WBC corrected for nucl RBC Auto (Bld) [#/Vol] 8.3 10*3/uL 4.5-13.[address] [facility] Lymphocytes Auto (Bld) [#/Vo l]Ordered By: Fredi Ellington on 07-31-2022 Lymphocytes (Bld) [#/Vol] 2.3 10*3/uL 1.20-4.[address] [facility] Lymphocytes/100 WBC Auto (Bl d)Ordered By: Fredi Ellington on 07-31-2022 Lymphocytes/100 WBC (Bld) 27.9 % . [facility] MCH Auto (RBC) [Entitic mass ]Ordered By: Fredi Ellington on 07-31-2022 MCH (RBC) [Entitic mass] 28.4 pg 25.0-35.[address] [facility] MCHC Auto (RBC) [Mass/Vol]Or dered By: Fredi Ellington on 07-31-2022 MCHC (RBC) [Mass/Vol] 32.9 g/dL 31.0-37.0 [facility] MCV Auto (RBC) [Entitic vol] Ordered By: Fredi Ellington on 07-31-2022 MCV (RBC) [Entitic vol] 86.6 fL 78-102 [facility] Monocytes Auto (Bld) [#/Vol] Ordered By: Fredi Ellington on 07-31-2022 Monocytes (Bld) [#/Vol] 0.4 10*3/uL 0.1-1.[address] [facility] Monocytes/100 WBC Auto (Bld) Ordered By: Fredi Ellington on 07-31-2022 Monocytes/100 WBC (Bld) 5.0 % . [facility] Neutrophils Auto (Bld) [#/Vo l]Ordered By: Fredi Ellington on 07-31-2022 Neutrophils (Bld) [#/Vol] 5.5 10*3/uL 1.2-7.[address] [facility] Neutrophils/100 WBC Auto (Bl d)Ordered By: Fredi Ellington on 07-31-2022 Neutrophils/100 WBC (Bld) 66.2 % . [facility] No Panel InformationOrdered By: Freid Ellington on 07-31-2022 Estimated GFR () N/A [facility] Creatinine Clearance (Chem N/A [facility] Nucleated erythrocytes [Pres ence] in Blood by Automated countOrdered By: Fredi Ellington on 07-31-2022 Nucleated RBC Auto Ql (Bld) 0.1 /100{WBC} 0-0.[address] [facility] Platelet mean volume Auto (B ld) [Entitic vol]Ordered By: Fredi Ellington on 07-31-2022 Platelet mean volume (Bld) [Entitic vol] 7.5 fL 6.3-10.[address] [facility] Platelets Auto (Bld) [#/Vol] Ordered By: Fredi Ellington on 07-31-2022 Platelets (Bld) [#/Vol] 420 10*3/uL 150-[address] [facility] Protein [Mass/volume] in Ser um or PlasmaOrdered By: Frdei Ellington on 07-31-2022 Protein [Mass/Vol] 6.5 g/dL 6.1-7.9 [facility] RBC Auto (Bld) [#/Vol]Ordere d By: Fredi Rakel on 07-31-2022 RBC (Bld) [#/Vol] 4.45 10*6/uL 4.10-5.10 [facility] Serum or plasma alanine lucas otransferase measurement without P-5'-P (enzymatic activiOrdered By: Fredi Ellington on 07-31-2022 ALT No additional P-5'-P [Catalytic activity/Vol] 12 U/L 10-[address] [facility] Serum or plasma albumin/glob ulin mass ratioOrdered By: Fredi Ellington on 07-31-2022 Albumin/Globulin [Mass ratio] 1.0 {ratio} [facility] Serum or plasma alkaline rosmery sphatase measurement (enzymatic activity/volume)Ordered By: Fredi Ellington on 07-31-2022 ALP [Catalytic activity/Vol] 49 U/L 32-[address] [facility] Serum or plasma anion gap de terminationOrdered By: Fredi Ellington on 07-31-2022 Anion gap [Moles/Vol] 11.2 mmol/L 6.0-15.0 [facility] Serum or plasma aspartate am inotransferase measurement (enzymatic activity/volume)Ordered By: Fredi Ellington on 07-31-2022 AST [Catalytic activity/Vol] 13 U/L 10-[address] [facility] Serum or plasma calcium trish urement (mass/volume)Ordered By: Fredi Ellington on 07-31-2022 Calcium [Mass/Vol] 9.2 mg/dL 8.2-10.2 [facility] Serum or plasma chloride klarissa surement (moles/volume)Ordered By: Fredi Ellington on 07-31-2022 Chloride [Moles/Vol] 104 mmol/L 95-114 [facility] Serum or plasma glucose trish urement (mass/volume)Ordered By: Fredi Ellington on 07-31-2022 Glucose [Mass/Vol] 96 mg/dL 70-100 [facility] Comment on above: ADA recommended refe rence rangeRandom Glucose Reference Range is dependent on time and content of last meal. Glucose of more than 200 mg/dL in a nonstressed, ambulatory subject supports the diagnosis of Diabetes Mellitus. Serum or plasma high density lipoprotein (HDL) cholesterol measurementOrdered By: Fredi Ellington on 07-31-2022 Cholesterol in HDL [Mass/Vol] 78 mg/dL 35-[address] [facility] Comment on above: HDL CHOL ATP-III CLA SSIFICATION Cardiovascular RiskHDL > or equal to 60 mg/dL LOWHDL < 40 mg/dL HIGH Serum or plasma potassium me asurement (moles/volume)Ordered By: Fredi Ellington on 07-31-2022 Potassium [Moles/Vol] 4.0 mmol/L 3.5-5.1 [facility] Serum or plasma sodium measu rement (moles/volume)Ordered By: Fredi Ellington on 07-31-2022 Sodium [Moles/Vol] 137 mmol/L 138-145 [facility] Serum or plasma total biliru bin measurement (mass/volume)Ordered By: Fredi Ellington on 07-31-2022 Bilirubin [Mass/Vol] 0.5 mg/dL 0.3-1.2 [facility] Serum or plasma total carbon dioxide measurement (moles/volume)Ordered By: Fredi Ellington on 07-31-2022 CO2 [Moles/Vol] 25.8 mmol/L 22.0-30.[address] [facility] Serum or plasma total choles terol/high density lipoprotein (HDL) cholesterol mass ratOrdered By: Fredi Ellington on 07-31-2022 Cholesterol.total/Vianey sterol in HDL [Mass ratio] 3.4 {ratio} <5.[address] [facility] Serum or plasma urea nitroge n measurement (mass/volume)Ordered By: Fredi Ellington on 07-31-2022 Urea nitrogen [Mass/Vol] 18 mg/dL 9-[address] [facility] TSH DL <= 0.005 mIU/L QnOrde red By: Fredi Ellington on 07-31-2022 TSH Qn 3.47 m[IU]/L 0.45-5.[address] [facility] Thyroxine (T4) free [Mass/vo lume] in Serum or PlasmaOrdered By: Fredi Ellington on 07-31-2022 Free T4 [Mass/Vol] 1.03 ng/dL 0.61-1.12 [facility] Triglyceride [Mass/volume] i n Serum or PlasmaOrdered By: Fredi Ellington on 07-31-2022 Triglyceride [Mass/Vol] 89 mg/dL 35-149 [facility] Comment on above: TRIG ATP III CLASSIF ICATIONTRIG less than 150 mg/dL NormalTRIG 150-199 mg/dL Borderline highTRIG 200-500 mg/dL High TRIG greater than 500 mg/dL Very highStandard traceable to the Center for Disease Conrtrol and Prevention (CDC) test method. WBC Auto (Bld) [#/Vol]Ordere d By: Fredi Ellington on 07-31-2022 WBC (Bld) [#/Vol] 8.3 10*3/uL 4.5-13.5 [facility] Covid-19 PCR ([facility])on 07-04 SARS-CoV-2 (COVID-19) RNA CHRISTIAN+probe Ql (Unsp spec) Not detected Normal NOT DETECTED [facility] Comment on above: Result Comment: When diagnostic [...] for this test is supported by the [place] of Health and Human Service's declaration that [...] used). Performed By: #### C VDTB #### [facility] [address] [place] [address] Dr. Tara Jackson INFLUENZA A AND B AGon 07-23 INFLUENZA A AG Negative Normal NEGATIVE SEE COMMENT [facility] Comment on above: Performed By: #### I NFLUAB #### [facility] [address] [address] [address] Tara Jackson INFLUENZA B AG Negative Normal NEGATIVE SEE COMMENT [facility] Comment on above: Performed By: #### I NFLUAB #### [facility] [address] [address] [address] Tara Jackson INTERNAL CONTROLS Within Normal Limits Normal Wi thin Normal Limits [facility] Comment on above: Performed By: #### I NFLUAB #### [facility] [address] [address] [address] Tara Jackson RSVon 07-23-2022 RSV AG Negative Normal NEGATIVE [facility] Comment on above: Performed By: #### R SV #### [facility] [address] [address] [address] Tara Jackson CHEMISTRYOrdered By: SYSTEM SYSTEM [...] activity/Vol] 47 [iU]/d Low 48 - 283 Int._Unit/ L [facility] Remisol ALT No additional P-5'-P [Catalytic activity/Vol] 14 [iU]/d Normal 6 - 46 Int._Unit/ L [facility] Remisol Anion gap [Moles/Vol] 13 mmol/L Normal 6 - 16 mEq/L [facility] Remisol AST [Catalytic activity/Vol] 15 [iU]/d Normal 5 - 43 Int._Unit/ L [facility] Remisol Bilirubin [Mass/Vol] 0.3 mg/dL Normal [...] 10 - 20 [facility]isol Covid-19 PCR ([facility])on SARS-CoV-2 (COVID-19) RNA CHRISTIAN+probe Ql (Unsp spec) Not detected Normal NOT DETECTED [facility] Comment on above: Result Comment: This test is not yet approved or cleared by the [place] FDA. When there are no FDA-approved or cleared tests available, and other criteria are met, FDA can make tests available under an emergency access mechanism called an Emergency Use Authorization (EUA). The EUA for this test is supported by the Radiation / Chemistry Technician of Health and Human Service's (HHS's) declaration [...] consistent with SARS-CoV-2. Performed By: #### [facility] #### [facility] [address] [place] [address] Dr. Tara Jackson HEMATOLOGYOrdered By: SYSTEM SYSTEM [...] HemeAutoSS Platelets (Bld) [#/Vol] 304.0 E9/L Normal 150. 0 - 450.0 E9/L [facility] HemeAutoSS RBC (Bld) [#/Vol] 4.1 E12/L Normal 4.1 - 5.3 E12/L [facility] HemeAutoSS WBC corrected for nucl RBC Auto (Bld) [#/Vol] 8.7 E9/L Normal 4.0 - 10.5 E9/L [facility] HemeAutoSS INFLUENZA A AND B AGon 07-08 INFLUANEGH SEE BELOW Normal [facility] Comment on above: Result Comment: Nega tive for Flu A protein angiten. Infection due to Flu A cannot be ruled out. Flu A angiten in the sample may be below the detection limit of the test. Performed By: #### I NFLUAB #### [facility] [address] [address] [address] Tara Jackson [facility] SEE BELOW Normal [facility] Comment on above: Result Comment: Nega tive for Flu B protein antigen. Infection due to Flu B cannot be ruled out. Flu B antigen in the sample may be below the detection limit of the test. Performed By: #### I NFLUAB #### [facility] [address] [address] [address] Tara Jackson INFLUENZA A AG Negative Normal NEGATIVE SEE COMMENT [facility] Comment on above: Performed By: #### I NFLUAB #### [facility] [address] [place] [address] Dr. Tara Jackson INFLUENZA B AG Negative Normal NEGATIVE SEE COMMENT [facility] Comment on above: Performed By: #### I NFLUAB #### [facility] [address] [place] [address] Dr. Tara Jackson INTERNAL CONTROLS Within Normal Limits Normal Wi thin Normal Limits [facility] Comment on above: Performed By: #### I NFLUAB #### [facility] [address] [address] [address] Tara Jackson MICRO OTHER TESTSOrdered By: Chuck Jackson on 07-08-2022 S. pyogenes Ag IA.rapid Ql (Throat) Negative (07/08/22 8:55 PM) Normal Negative [facility] Man Sero SEROLOGYOrdered By: Chuck harrison on 07-08-2022 HCG.beta subunit (U) [Moles/Vol] Negative Normal [facility] Man Sero URINALYSISOrdered By: Chuck hall on [...] PM) Normal Negative [facility] UA Auto SS [place].plasma/[place]. RBC (Bld) [Mass ratio] 0-3 /HPF Normal 0-3/HPF [...] Desc Clean Catch (07/08/22 8:50 PM) Normal [facility] UA Auto SS Urobilinogen Qn (U) [id number] {Ed'U}/dL Normal 0.0 - 1.0 EU/dL [facility] [...] - 5.3 mmol/L [facility] Remisol Sodium [Moles/Vol] 132 mmol/L Low 135 - 145 mmol/L [facility] Remisol Urea nitrogen [Mass/Vol] 14 mg/dL Normal 5 - 21 mg/dL [facility] Remisol Urea nitrogen/Creatinine [Mass ratio] 23 mg/mg High 10 - 20 [facility] Remisol CHEMISTRYOrdered By: Lab ROP User on 07-02-2022 Glucose [Mass/Vol] 100 mg/dL High 55 - 99 mg/dL [facility] POC Subsection Comment on above: Result Comment: Shanique percy Meter POC Device SN [id number] Invalid Interpretation Code [facility] POC Subsection POC User ID [id number] Invalid Interpretation Code [facility] POC Subsection POC Username CAL NOLASCO Invalid Interpretation Code [facility] POC Subsection HEMATOLOGYOrdered By: SYSTEM SYSTEM on [...] 9.1 E9/L High 1.3 - 6.0 E9/L FT HemeAutoSS HEMATOLOGYOrdered By: Cyn Hastings on 07-02-2022 [...] 82.4 fL Normal 78.0 - 95.0 fL [facility] HemeAutoSS Platelet mean volume (Bld) [Entitic vol] 7.1 fL Normal 6.0 - 9.5 fL [facility] HemeAutoSS Platelets (Bld) [#/Vol] 303.0 E9/L Normal 150. 0 - 450.0 E9/L [facility] HemeAutoSS RBC (Bld) [#/Vol] 4.3 E12/L Normal 4.1 - 5.3 E12/L [facility] HemeAutoSS WBC corrected for nucl RBC Auto (Bld) [#/Vol] 11.5 E9/L High 4.0 - 10.5 E9/L [facility] HemeAutoSS INFLUENZA A AND B AGon 06-25 [facility] SEE BELOW Normal [facility] Comment on above: Result Comment: Nega tive for Flu A protein angiten. Infection due to Flu A cannot be ruled out. Flu A angiten in the sample may be below the detection limit of the test. Performed By: #### C [facility] #### [facility] [address] [place] [address] Dr. Tara Jackson [facility] SEE BELOW Normal [facility] Comment on above: Result Comment: Nega tive for Flu B protein antigen. Infection due to Flu B cannot be ruled out. Flu B antigen in the sample may be below the detection limit of the test. Performed By: #### C VDTBH #### [facility] [address] [place] [address] Dr. Tara Jackson INFLUENZA A AG Negative Normal NEGATIVE SEE COMMENT [facility] Comment on above: Performed By: #### C VDTBH #### [facility] [address] [address] [address] Tara Jackson INFLUENZA B AG Negative Normal NEGATIVE SEE COMMENT [facility] Comment on above: Performed By: #### C VDTBH #### [facility] [address] [place] [address] Dr. Tara Jackson INTERNAL CONTROLS Within Normal Limits Normal Wi thin Normal Limits [facility] Comment on above: Performed By: #### C VDTBH #### [facility] [address] [place] [address] Dr. Tara Jackson Covid-19 PCR (CVDTB)on 06-03 SARS-CoV-2 (COVID-19) RNA CHRISTIAN+probe Ql (Unsp spec) Not detected Normal NOT DETECTED [facility] Comment on above: Result Comment: This test is not yet approved or cleared by the [place] FDA. When there are no FDA-approved or cleared tests available, and other criteria are met, FDA can make tests available under an emergency access mechanism called an Emergency Use Authorization (EUA). The EUA for this test is supported by the Radiation / Chemistry Technician of Health and Human Service's (HHS's) declaration [...] SARS-CoV-2. Performed By: #### I NFLUAB #### [facility] [address] [place] [address] Dr. Tara aJckson Covid-19 PCR (CVDTBH)on 05-04 SARS-CoV-2 (COVID-19) RNA CHRISTIAN+probe Ql (Unsp spec) Not detected Normal NOT DETECTED [facility] Comment on above: Result Comment: This test is not yet approved or cleared by the [place] FDA. When there are no FDA-approved or cleared tests available, and other criteria are met, FDA can make tests available under an emergency access mechanism called an Emergency Use Authorization (EUA). The EUA for this test is supported by the [place] of Health and Human Service's (HHS's) declaration [...] SARS-CoV-2. Performed By: #### I NFLUAB #### [facility] [address] [place] [address] Dr. Tara Jackson AMYLASEon 04-26-2022 Amylase [Catalytic activity/Vol] 17 U/L Critically low 25-115 [facility] Comment on above: Performed By: #### I NFLUAB #### [facility] [address] [place] [address] Dr. Tara Jackson CBC AUTO DIFFon 04-26-2022 BASO # 0.0 103/ul Normal 0.0-0.1 [facility] Comment on above: Performed By: #### C VDTBH #### [facility] [address] [place] [address] Dr. Tara Jackson Basophils/100 WBC (Bld) 0.7 % Normal 0.2-2.0 [facility] Comment on above: Performed By: #### C VDTBH #### [facility] [address] [place] [address] Dr. Traa Jackson EO # 0.3 103/ul Normal 0.0-0.7 [facility] Comment on above: Performed By: #### C VDTBH #### [facility] [address] [place] [address] Dr. Tara Jackson Eosinophils/100 WBC (Bld) 5.1 % Normal 0.9-7.0 [facility] Comment on above: Performed By: #### C VDTBH #### [facility] [address] [place] [address] Dr. Tara Jackson Erythrocyte distribution width (RBC) [Ratio] 13.5 % Normal 11.0-15.0 [facility] Comment on above: Performed By: #### C VDTBH #### [facility] [address] [place] [address] Dr. Tara Jackson Hematocrit (Bld) [Volume fraction] 37.9 % Normal 36.0-48.0 [facility] Comment on above: Performed By: #### C VDTBH #### [facility] [address] [place] [address] Dr. Tara Jackson Hemoglobin (Bld) [Mass/Vol] 12.4 g/dL Normal 12.0-16.0 [facility] Comment on above: Performed By: #### C VDTBH #### [facility] [address] [place] [address] Dr. Tara Jackson IG # 0.01 10e3/ul Normal 0.00-0.03 [facility] Comment on above: Performed By: #### C VDTBH #### [facility] [address] [place] [address] Dr. Tara Jackson IG % 0.2 % Normal 0.0-0.5 [facility] Comment on above: Performed By: #### C VDTBH #### [facility] [address] [place] [address] Dr. Tara Jackson LYMPH # 1.6 103/ul Normal 1.2-3.8 [facility] Comment on above: Performed By: #### C VDTBH #### [facility] [address] [place] [address] Dr. Tara Jackson Lymphocytes/100 WBC (Bld) 28.8 % Normal 20.5-60.0 [facility] Comment on above: Performed By: #### C VDTBH #### [facility] [address] [place] [address] Dr. Tara Jackson MANUAL DIFF REQ NO Normal [facility] Comment on above: Performed By: #### C VDTBH #### [facility] [address] [place] [address] Dr. Tara Jackson MCH (RBC) [Entitic mass] 28.1 pg Normal 26.7-34.0 [facility] Comment on above: Performed By: #### C VDTBH #### [facility] [address] [place] [address] Dr. Tara Jackson MCHC (RBC) [Mass/Vol] 32.7 g/dL Normal 29.9-35.2 [facility] Comment on above: Performed By: #### C VDTBH #### [facility] [address] [place] [address] Dr. Tara Jackson MCV (RBC) [Entitic vol] 85.7 fL Normal 79.1-95.6 [facility] Comment on above: Performed By: #### C VDTBH #### [facility] [address] [place] [address] Dr. Tara Jackson MONO # 0.3 103/ul Normal 0.3-0.8 [facility] Comment on above: Performed By: #### C VDTBH #### [facility] [address] [place] [address] Dr. Tara Jackson Monocytes/100 WBC (Bld) 6.2 % Normal 1.7-12.0 [facility] Comment on above: Performed By: #### C VDTBH #### [facility] [address] [place] [address] Dr. Tara Jackson NEUT # 3.2 103/ul Normal 1.4-6.5 [facility] Comment on above: Performed By: #### C VDTBH #### [facility] [address] [place] [address] Dr. Tara Jackson Neutrophils/100 WBC (Bld) 59.0 % Normal 43.0-75.0 [facility] Comment on above: Performed By: #### C VDTBH #### [facility] [address] [place] [address] Dr. Tara Jackson Platelet mean volume (Bld) [Entitic vol] 9.7 fL Normal 9.5-13.5 [facility] Comment on above: Performed By: #### C VDTBH #### [facility] [address] [place] [address] Dr. Tara Jackson PLT 382 103/ul Normal 150-450 [facility] Comment on above: Performed By: #### C VDTBH #### [facility] [address] [place] [address] Dr. Tara Jackson RBC 4.42 106/ul Normal 3.40-5.30 [facility] Comment on above: Performed By: #### C VDTBH #### [facility] [address] [place] [address] Dr. Tara Jackson WBC 5.5 103/ul Normal 4.0-11.0 [facility] Comment on above: Performed By: #### C VDTBH #### [facility] [address] [place] [address] Dr. Tara Jackson IRONon 04-26-2022 Iron [Mass/Vol] 55.0 ug/dL Normal 50.0-170.0 [facility] Comment on above: Performed By: #### C VDTBH #### [facility] [address] [place] [address] Dr. Tara Jackson LIPASEon 04-26-2022 Lipase [Catalytic activity/Vol] 191.0 U/L Normal 73.0-393.0 [facility] Comment on above: Performed By: #### I NFLUAB #### [facility] [address] [place] [address] Dr. Tara Jackson PREG QUANT HCGon 04-26-2022 HCG QUANT <1 Normal [facility] Comment on above: Performed By: #### I NFLUAB #### [facility] [address] [place] [address] Dr. Tara Jackson HCG RANGE SEE BELOW Normal [facility] Comment on above: Result Comment: 5-50 0.2-1 WEEK 50-500 1-2 WEEKS 100-5,000 2-3 WEEKS 500-10,000 3-4 WEEKS 1,000-50,000 4-5 WEEKS 10,000-100,000 5-6 WEEKS 15,000-200,000 6-8 WEEKS 10,000-100,000 2-3 MONTHS Performed By: #### I NFLUAB #### [facility] [address] [place] [address] Dr. Tara Jackson PROF 14(COMP METB)on 022 Albumin [Mass/Vol] 3.0 g/dL Critically low 3.4-5.0 [facility] Comment on above: Performed By: #### I NFLUAB #### [facility] [address] [place] [address] Dr. Tara Jackson Albumin/Globulin [Mass ratio] 0.7 {ratio} Normal [facility] Comment on above: Performed By: #### I NFLUAB #### [facility] [address] [place] [address] Dr. Tara Jackson ALP [Catalytic activity/Vol] 58 U/L Critically low 65-260 [facility] Comment on above: Performed By: #### I NFLUAB #### [facility] [address] [place] [address] Dr. Tara Jackson ALT [Catalytic activity/Vol] 19 U/L Normal 14-59 [facility] Comment on above: Performed By: #### I NFLUAB #### [facility] [address] [place] [address] Dr. Tara Jackson Anion gap [Moles/Vol] 11.1 mmol/L Normal [facility] Comment on above: Performed By: #### I NFLUAB #### [facility] [address] [place] [address] Dr. Tara Jackson AST [Catalytic activity/Vol] 13 U/L Critically low 15-37 [facility] Comment on above: Performed By: #### I NFLUAB #### [facility] [address] [address] [address] Tara Jackson Bilirubin [Mass/Vol] 0.3 mg/dL Normal 0.2-1.0 [facility] Comment on above: Performed By: #### I NFLUAB #### [facility] [address] [address] [address] Tara Jackson Calcium [Mass/Vol] 8.7 mg/dL Normal 8.5-10.1 [facility] Comment on above: Performed By: #### I NFLUAB #### [facility] [address] [place] [address] Dr. Tara Jackson Chloride [Moles/Vol] 103 mmol/L Normal 98-107 [facility] Comment on above: Performed By: #### I NFLUAB #### [facility] [address] [place] [address] Dr. Tara Jackson CO2 [Moles/Vol] 25.0 mmol/L Normal 21.0-32.0 [facility] Comment on above: Performed By: #### I NFLUAB #### [facility] [address] [place] [address] Dr. Tara Jackson Creatinine [Mass/Vol] 0.88 mg/dL Normal 0.55-1.02 [facility] Comment on above: Performed By: #### I NFLUAB #### [facility] [address] [place] [address] Dr. Tara Jackson Globulin (S) [Mass/Vol] 4.6 g/dL Normal [facility] Comment on above: Performed By: #### I NFLUAB #### [facility] [address] [place] [address] Dr. Tara Jackson Glucose [Mass/Vol] 91 mg/dL Normal 74-106 [facility] Comment on above: Performed By: #### I NFLUAB #### [facility] [address] [place] [address] Dr. Tara Jackson Potassium [Moles/Vol] 4.1 mmol/L Normal 3.5-5.1 [facility] Comment on above: Performed By: #### I NFLUAB #### [facility] [address] [address] [address] Tara Jackson Protein [Mass/Vol] 7.6 g/dL Normal 6.4-8.2 [facility] Comment on above: Performed By: #### I NFLUAB #### [facility] [address] [address] [address] Tara Jackson Sodium [Moles/Vol] 135 mmol/L Critically low 136-145 [facility] Comment on above: Performed By: #### I NFLUAB #### [facility] [address] [address] [address] Tara Jackson Urea nitrogen [Mass/Vol] 9.0 mg/dL Normal 6.4-19.3 [facility] Comment on above: Performed By: #### I NFLUAB #### [facility] [address] [address] [address] Tara Jackson Urea nitrogen/Creatinine [Mass ratio] 10.2 mg/mg Normal [facility] Comment on above: Performed By: #### I NFLUAB #### [facility] [address] [address] [address] Tara Jackson CHEMISTRYOrdered By: SYSTEM SYSTEM on 04-04-2022 Cholesterol [Mass/Vol] 210 mg/dL High 120 - 200 mg/dL [facility] Remisol Cholesterol in HDL [Mass/Vol] 45 mg/dL Invalid Interpretation Code [facility] Remisol Cholesterol in LDL [Mass/Vol] 159 mg/dL High <=129mg/dL [facility] Remisol Cholesterol in VLDL [Mass/Vol] 20 mg/dL Normal 7 - 40 mg/dL [facility] Remisol Glucose post fast [Mass/Vol] 100 mg/dL High 55 - 99 mg/dL [facility] Remisol Triglyceride [Mass/Vol] 101 mg/dL Normal <=149mg/dL [facility] Remisol CHEMISTRYOrdered By: Valeriy Rivas on 04-04-2022 HbA1c (Bld) [Mass fraction] 5.3 % Normal <=5.9% [facility] ChemAutoSS Covid-19 PCR (CVDTBH)on 03-03 SARS-CoV-2 (COVID-19) RNA CHRISTIAN+probe Ql (Unsp spec) Not detected Normal NOT DETECTED [facility] Comment on above: Result Comment: This test is not yet approved or cleared by the [place] FDA. When there are no FDA-approved or cleared tests available, and other criteria are met, FDA can make tests available under an emergency access mechanism called an Emergency Use Authorization (EUA). The EUA for this test is supported by the [place] of Health and Human Service's (HHS's) declaration [...] SARS-CoV-2. Performed By: #### I NFLUAB #### [facility] [address] [place] [address] Dr. Tara Jackson [facility]on SARS-CoV-2 (COVID-19) RNA CHRISTIAN+probe Ql (Unsp spec) Not detected Normal NOT DETECTED [facility] Comment on above: Result Comment: This test is not yet approved or cleared by the [place] FDA. When there are no FDA-approved or cleared tests available, and other criteria are met, FDA can make tests available under an emergency access mechanism called an Emergency Use Authorization (EUA). The EUA for this test is supported by the Radiation / Chemistry Technician of Health and Human Service's (HHS's) declaration [...] SARS-CoV-2. Performed By: #### I NFLUAB #### [facility] [address] [place], [place] [address] Dr. Tara Jackson Covid-19 PCR ([facility]on 01-01 SARS-CoV-2 (COVID-19) RNA CHRISTIAN+probe Ql (Unsp spec) Not detected Normal NOT DETECTED [facility] Comment on above: Result Comment: This test is not yet approved or cleared by the [place] FDA. When there are no FDA-approved or cleared tests available, and other criteria are met, FDA can make tests available under an emergency access mechanism called an Emergency Use Authorization (EUA). The EUA for this test is supported by the Radiation / Chemistry Technician of Health and Human Service's (HHS's) declaration [...] SARS-CoV-2. Performed By: #### I NFLUAB #### [facility] [address] [place] [address] Dr. Tara Jackson SYMPTOMATIC COVID-19 ANTIGEN on 01-17-2022 EUA Statement SEE BELOW Normal [facility] Comment on above: Result Comment: This test [...] sooner. Performed By: #### C VDAGS #### [facility] [address] [place], [place] [address] Dr. Tara Jackson SARS-CoV-2 (COVID-19) RNA CHRISTIAN+probe Ql (Unsp spec) Negative Normal NEGATIVE [facility] Comment on above: Performed By: #### C VDAGS #### [facility] [address] [address] [address] Tara Jackson CHEMISTRYOrdered By: SYSTEM SYSTEM on 12-04-2021 Acetaminophen [Mass/Vol] microgram/mL Low 15 - 30 mcg/mL [facility] Remisol Albumin [Mass/Vol] 3.8 g/dL Normal 3.3 - 5.0 gm/dL [facility] Remisol Albumin/Globulin [Mass ratio] 1.0 {ratio} Low 1.1 - 2.2 [facility] Remisol ALP [Catalytic activity/Vol] 46 [iU]/d Low 48 - 283 Int._Unit/ L [facility] Remisol ALT No additional P-5'-P [Catalytic activity/Vol] 14 [iU]/d Normal 6 - 46 Int._Unit/ L [facility] Remisol Anion gap [Moles/Vol] 15 mmol/L Normal 6 - 16 mEq/L [facility] Remisol AST [Catalytic activity/Vol] 17 [iU]/d Normal 5 - 43 Int._Unit/ L [facility] Remisol Bilirubin [Mass/Vol] 0.5 mg/dL Normal [...] HemeAutoSS Platelets (Bld) [#/Vol] 382.0 E9/L Normal 150. 0 - 450.0 E9/L [facility] HemeAutoSS RBC (Bld) [#/Vol] 4.4 E12/L Normal 4.1 - 5.3 E12/L [facility] HemeAutoSS WBC corrected for nucl RBC Auto (Bld) [#/Vol] 6.5 E9/L Normal 4.0 - 10.5 E9/L [facility] HemeAutoSS MICRO OTHER TESTSOrdered By: Debby Cleveland on 12-04-2021 Rapid COV Int NEG Ctl Pass (12/04/21 11:18 PM) Normal [facility] Man Sero Rapid COV Int POS Ctl Pass (12/04/21 11:18 PM) Normal [facility] Man Sero SARS-CoV+SARS-CoV-2 (COVID-19) Ag IA.rapid Ql (Resp) Not Detected (12/04/21 11:18 PM) Normal Not Detected [facility] Man Sero SEROLOGYOrdered By: Debby Cleveland on 12-04-2021 Beta hCG Ql Negative (12/04/21 6:06 PM) Normal [facility] Man Sero Peds Pulmonary Medicine- Off ice [...] only phone number listed in the computer ([phone]) went straight to the mother's voicemail and it was not taking messages. Called back and requested to call another number - [phone] Today (10/24/2019) I did a telephone conference [...] update: no changes 1 Refills: yes Pharmacy: [facility] in [place] PCP: same 1 Amended By: Martina Bedolla; [...] moderate persistent; YANNA = N; Sent To: [facility]ARM[facility]Y #[id number] Asthma, moderate persistent, Chronic cough Renew: Cetirizine HCl - 10 MG Oral Tablet; TAKE 1 TABLET BY MOUTH DAILY Rx By: Martina Bedolla; Dispense: 0 Days ; #:1 X 30 Tablet Bottle; Refill: 3; For: Asthma, moderate persistent, Chronic cough; YANNA = N; Sent To: [facility]PHARM[facility]Y #6173 Non-allergic rhinitis Renew: Fluticasone Propionate 50 MCG/ACT Nasal Suspension; USE 2 SPRAYS IN EACH NOSTRIL ONCE DAILY Rx By: Martina Bedolla; Dispense: 0 Days ; #:1 X 16 GM Bottle; Refill: 6; For: Non-allergic rhinitis; YANNA = N; Sent To: [facility]/PHARMACY #[id number] Signatures Electronically signed by : Martina Bedolla DO; Oct 26 2019 3:32PM EST (Author) Normal [facility]- [...] or you have questions about the plan ([phone]). Please call us if you are having [...] Behavior appropriate for age. Results/Data Asthma Action [id number] 01:32PMartina Barron Test NameResultFlagReference See Scanned DocumetSee Scanned Document Summary / No summary entered : No summary entered Documents attached : [facility] Action Plan - Martina Bedolla; Enc: [id number] - Appointment - Martina Bedolla - (Pediatric Pulmonology) (Result Document) Spirometry loops personally reviewed. Test done today shows: rejected Orders Asthma, moderate persistent Renew: Dulera 200-5 MCG/ACT Inhalation Aerosol; Inhale 2 puffs twice daily with a spacer Rx By: Martina Bedolla; Dispense: 0 Days ; #:1 X 13 GM Inhaler; Refill: 6;For: Asthma, moderate persistent; YANNA = N; [facility]; Last Updated By: [employer]ures[employer]; 05/30/2019 3:29:40 PM Renew: Ventolin HFA 108 (90 Base) MCG/ACT Inhalation Aerosol Solution; Inhale 2-4 puffs every 4-6 hours as needed for cough, wheezing and shortness of breath and prior to exercise Rx By: Martina Bedolla; Dispense: 0 Days ; #:1 X 18 GM Inhaler; Refill: 6;For: Asthma, moderate persistent; YANNA = N; Verified Transmission to [facility]/PHARMACY #6152; Last Updated By: Neurescue; 05/30/2019 3:29:35 PM Attending Note Attestation: Comments/Additional Findings: Martina Chaudhari, hereby attest that the medical record entry [...] or you have questions about the plan ([phone]). Please call us if you are having [...] Plan; Status:Complete; Done: 26Jan2019 02:00PM Performed:In Office; Due:[id number]; Last Updated By:Monica Rowan; 01/26/2019 2:00:50 PM;Ordered; [...] Feb 13 2019 6:39PM EST (Author) Normal [facility] Peds Pulmonary Medicine- Off ice Visiton 11-24-2018 [...] persistent; YANNA = N; Verified Transmission to [facility]ARM[facility]Y #[id number]; Last Updated By: Duarte Orta; [...] SPRAYS IN EACH NOSTRIL ONCE DAILY; Therapy: [id number] to (Last Rx:02Sep2018) Requested for: 02Sep2018 Ordered Rx By: Martina Bedolla; Dispense: 0 Days ; #:1 X 16 GM Bottle; Refill: 5;For: Non-allergic rhinitis; YANNA = N; Print Rx Ibuprofen 800 MG Oral Tablet; Therapy: 26Jan2018 to Recorded Dispense: 20 Days ; #:60; Refill: 0; YANNA = N; Record; Last Updated By: Arminda Linda; 03/18/2018 2:27:47 PM 08/22 1-20 MG-MCG Oral Tablet; Therapy: [id number] to Recorded Dispense: 28 Days ; #:28; Refill: 0; YANNA = N; Record; Last Updated By: Arminda Linda; 03/18/2018 2:27:47 PM QUEtiapine Fumarate 200 MG Oral Tablet; TAKE 1 TABLET EVERY DAY AT BEDTIME; Therapy: [id number] to Recorded Rx By: PAZ; Dispense: 30 Days ; #:30; Refill: 0; YANNA = N; Record; Last Updated By: Martina Bedolla; 01/25/2018 2:11:18 PM Vitals Vital Signs Recorded: 29Oct2018 09:33AM Heart Rate78 Amiihnmgwck11 Hsmxlubr494 Hwkqvxdaz25 Gradmr227 cm 2-20 Stature Lofuiynvbo13 % Ccpyag59 kg 2-20 Weight Jqyskhanxx28 % BMI Cxjwqeyfea29.84 BMI Anfztwsimg03 % BSA Calculated1.71 O2 Lhwlskvbge54 Physical Exam Constitutional: awake, alert and cooperative. [...] persistent; YANNA = N; Verified Transmission to [id number]; Last Updated By: System, [employer]; 10/29/2018 1:37:58 PM Provider Impressions Asthma Severity: [...] or you have questions about the plan ([phone]). Please call us if you are having [...] date of service which is 10/29/2018. Normal [facility] Vital Signs Date Time Vital Sign Value Performing Clinician Facility 03-09-2025 09:39-0400 Body mass index (BMI) [Ratio] 41.64 kg/m2 Martina SALAZAR Work Phone: [facility] 03-09-2025 09:39-0400 Body weight 117.03 kg Martina SALAZAR Work Phone: [facility] 03-09-2025 09:39-0400 Diastolic blood pressure 72 mm[Hg] Martina SALAZAR Work Phone: [facility] 03-09-2025 09:39-0400 Systolic blood pressure 120 mm[Hg] Martina Nury PA Work Phone: [facility] 03-02-2025 11:19-0400 Body mass index (BMI) [Ratio] 41 kg/m2 Martina Stowell PA Work Phone: [facility] 03-02-2025 11:19-0400 Body weight 115.21 kg Martina Stowell PA Work Phone: [facility] 03-02-2025 11:19-0400 Diastolic blood pressure 72 mm[Hg] Martina Stowell PA Work Phone: [facility] 03-02-2025 11:19-0400 Systolic blood pressure 116 mm[Hg] Martina Stowell PA Work Phone: [facility] 02-23-2025 09:32-0400 Body mass index (BMI) [Ratio] 40.74 kg/m2 Ranjit Robb DO Work Phone: [facility] 02-23-2025 09:32-0400 Body weight 114.49 kg Ranjit Robb DO Work Phone: [facility] 02-23-2025 09:32-0400 Diastolic blood pressure 72 mm[Hg] Ranjit Robb DO Work Phone: [facility] 02-23-2025 09:32-0400 Systolic blood pressure 118 mm[Hg] Ranjit Robb DO Work Phone: [facility] 02-16-2025 12:06-0400 Body mass index (BMI) [Ratio] 39.87 kg/m2 Martina Stowell PA Work Phone: [facility] 02-16-2025 12:06-0400 Body weight 112.04 kg Martina Stowell PA Work Phone: [facility] 02-16-2025 12:06-0400 Diastolic blood pressure 76 mm[Hg] Martina Stowell PA Work Phone: [facility] 02-16-2025 12:06-0400 Systolic blood pressure 108 mm[Hg] Martina SALAZAR Work Phone: [facility] 02-01-2025 13:50-0400 Body mass index (BMI) [Ratio] 39.62 kg/m2 Ranjit Robb DO Work Phone: [facility] 02-01-2025 13:50-0400 Body weight 111.36 kg Ranjit Robb DO Work Phone: [facility] 02-01-2025 13:50-0400 Diastolic blood pressure 80 mm[Hg] Ranjit Robb DO Work Phone: [facility] 02-01-2025 13:50-0400 Systolic blood pressure 120 mm[Hg] Ranjit Robb DO Work Phone: [facility] 01-18-2025 14:57-0400 Body mass index (BMI) [Ratio] 39.77 kg/m2 Martina SALAZAR Work Phone: [facility] 01-18-2025 14:57-0400 Body weight 111.75 kg Martina SALAZAR Work Phone: [facility] 01-18-2025 14:57-0400 Diastolic blood pressure 76 mm[Hg] Martina SALAZAR Work Phone: [facility] 01-18-2025 14:57-0400 Systolic blood pressure 110 mm[Hg] Martina SALAZAR Work Phone: [facility] 12-28-2024 14:40-0400 Body mass index (BMI) [Ratio] 39.87 kg/m2 Ranjit Robb DO Work Phone: [facility] 12-28-2024 14:40-0400 Body weight 112.04 kg Ranjit Robb DO Work Phone: [facility] 12-28-2024 14:40-0400 Diastolic blood pressure 80 mm[Hg] Ranjit Robb DO Work Phone: [facility] 12-28-2024 14:40-0400 Systolic blood pressure 108 mm[Hg] Ranjit Robb DO Work Phone: [facility] 11-30-2024 14:33-0400 Body mass index (BMI) [Ratio] 39.09 kg/m2 Ranjit Robb DO Work Phone: [facility] 11-30-2024 14:33-0400 Body weight 109.86 kg Ranjit Orbb DO Work Phone: [facility] 11-30-2024 14:33-0400 Diastolic blood pressure 70 mm[Hg] Ranjit Robb DO Work Phone: [facility] 11-30-2024 14:33-0400 Systolic blood pressure 100 mm[Hg] Ranjit Robb DO Work Phone: [facility] 11-09-2024 12:56-0400 Body mass index (BMI) [Ratio] 39.4 kg/m2 Ranjit Robb DO Work Phone: [facility] 11-09-2024 12:56-0400 Body weight 110.73 kg Ranjit Robb DO Work Phone: [facility] 11-09-2024 12:56-0400 Diastolic blood pressure 70 mm[Hg] Ranjit Robb DO Work Phone: [facility] 11-09-2024 12:56-0400 Systolic blood pressure 110 mm[Hg] Ranjit Robb DO Work Phone: [facility] 11-08-2024 18:00-0400 Heart rate 70 /min Radha Whipple [facility] 11-08-2024 18:00-0400 Diastolic blood pressure 64 mm[Hg] Radha Whipple [facility] 11-08-2024 18:00-0400 Mean blood pressure 82 mm[Hg] Radha Whipple [facility] 11-08-2024 18:00-0400 Respiratory rate 20 /min Radha Whpiple [facility] 11-08-2024 18:00-0400 Systolic blood pressure 117 mm[Hg] Radha Whipple [facility] 11-08-2024 17:00-0400 SaO2% (BldA) [Mass fraction] 96 % Radha Chaparroe [facility] 11-08-2024 17:00-0400 Heart rate 88 /min Radha Chaparroe [facility] 11-08-2024 17:00-0400 Diastolic blood pressure 74 mm[Hg] Radha Chaparroe [facility] 11-08-2024 17:00-0400 Mean blood pressure 89 mm[Hg] Radha Whipple [facility] 11-08-2024 17:00-0400 Systolic blood pressure 119 mm[Hg] Radha Whipple [facility] 11-08-2024 16:13-0400 Body temperature 97.52 [degF] Radha Whipple [facility] 11-08-2024 16:13-0400 bodymassindex 2.07 kg/m2 Radha Whipple [facility] Comment on above: Result Comment: ^~:!ZScore Source - [facility] 11-08-2024 16:13-0400 Diastolic blood pressure 90 mm[Hg] Radha Whipple [facility] 11-08-2024 16:13-0400 Heart rate 100 /min Radha Chaparroe [facility] 11-08-2024 16:13-0400 Height/Length Percentile 84.91 1 Radha Chaparroe [facility] Comment on above: Result Comment: ^~:!Percentile Source -[facility] 11-08-2024 16:13-0400 Height/Length Z-Score 1.03 1 Radha Chaparroe [facility] Comment on above: Result Comment: ^~:!ZScore [facility] 11-08-2024 16:13-0400 Respiratory rate 18 /min Radha Whipple [facility] 11-08-2024 16:13-0400 SaO2% (BldA) [Mass fraction] 96 % Radha Whipple [facility] 11-08-2024 16:13-0400 Systolic blood pressure 146 mm[Hg] Radha Whipple [facility] 11-08-2024 16:13-0400 weight 2.48 1 Radha Whipple [facility] Comment on above: Result Comment: ^~:!ZScore [facility] 11-08-2024 16:13-0400 Weight Percentile 99.34 % Radha Whipple [facility] Comment on above: Result Comment: ^~:!Percentile Source [facility] 11-02-2024 15:22-0400 Body mass index (BMI) [Ratio] 39.46 kg/m2 Martina Arrington PA Work Phone: [facility] 11-02-2024 15:22-0400 Body weight 110.9 kg Martina Arrington PA Work Phone: [facility] 11-02-2024 15:22-0400 Diastolic blood pressure 72 mm[Hg] Martina Arrington PA Work Phone: [facility] 11-02-2024 15:22-0400 Systolic blood pressure 108 mm[Hg] Martina Stowell PA Work Phone: [facility] 09-26-2024 10:41-0500 Body mass index (BMI) [Ratio] 39.54 kg/m2 Ranjit Robb DO Work Phone: [facility] 09-26-2024 10:41-0500 Body weight 111.13 kg Ranjit Robb DO Work Phone: [facility] 09-26-2024 10:41-0500 Diastolic blood pressure 60 mm[Hg] Ranjit Robb DO Work Phone: [facility] 09-26-2024 10:41-0500 Systolic blood pressure 100 mm[Hg] Ranjit Robb DO Work Phone: [facility] 09-09-2024 14:06-0500 Diastolic blood pressure 62 mm[Hg] Fredi Ellington MD Work Phone: [facility] 09-09-2024 14:06-0500 Heart rate 89 /min Fredi Ellington MD Work Phone: [facility] 09-09-2024 14:06-0500 Respiratory rate 18 /min Fredi Ellington MD Work Phone: [facility] 09-09-2024 14:06-0500 SaO2% (BldA) [Mass fraction] 99 % Fredi Ellington MD Work Phone: [facility] 09-09-2024 14:06-0500 Systolic blood pressure 116 mm[Hg] Fredi Ellington MD Work Phone: [facility] 09-09-2024 11:41-0500 Body height 170.18 cm Fredi Ellington MD Work Phone: [facility] 09-09-2024 11:41-0500 Body temperature 98.3 [degF] Fredi Ellington MD Work Phone: [facility] 09-09-2024 11:41-0500 Body weight 115.5 kg Fredi Ellington MD Work Phone: [facility] 08-25-2024 13:52-0500 Body mass index (BMI) [Ratio] 39.87 kg/m2 [facility] Nurse [facility] 08-25-2024 13:52-0500 Body weight 112.04 kg [facility] Nurse [facility] 08-21-2024 20:00-0500 Diastolic blood pressure 82 mm[Hg] [facility] 08-21-2024 20:00-0500 Mean blood pressure 104 mm[Hg] [facility] 08-21-2024 20:00-0500 Systolic blood pressure 147 mm[Hg] [facility] 08-21-2024 19:30-0500 Diastolic blood pressure 73 mm[Hg] [facility] 08-21-2024 19:30-0500 Mean blood pressure 96 mm[Hg] [facility] 08-21-2024 19:30-0500 Systolic blood pressure 142 mm[Hg] [facility] 08-21-2024 19:00-0500 Diastolic blood pressure 83 mm[Hg] [facility] 08-21-2024 19:00-0500 Heart rate 72 /min [facility] 08-21-2024 19:00-0500 Mean blood pressure 99 mm[Hg] [facility] 08-21-2024 19:00-0500 Systolic blood pressure 131 mm[Hg] [facility] 08-21-2024 18:30-0500 Heart rate 71 /min [facility] 08-21-2024 18:30-0500 Respiratory rate 16 /min [facility] 08-21-2024 18:30-0500 SaO2% (BldA) [Mass fraction] 100 % [facility] 08-21-2024 16:56-0500 Body temperature 98.24 [degF] [facility] 08-21-2024 16:56-0500 bodymassindex 2.09 kg/m2 [facility] Comment on above: [facility] 16[facility]-0500 Heart rate 81 /min [facility] 08-21-2024 16:56-0500 Height/Length Percentile 84.97 1 [facility] Comment on above: Result Comment: ^~:!Percentile Source [facility] 08-21-2024 16:56-0500 Height/Length Z-Score 1.04 1 [facility] Comment on above: Result Comment: [facility]-21-[facility] 16:56-0500 weight 2.47 1 [facility] Comment on above: Result Comment: ^[facility] 08-21-2024 16:56-0500 Weight Percentile 99.33 % [facility] Comment on above: Result Comment: ^~:!Percentile Source [facility] ^~:!Percentile [facility] 08-11-2024 16:12-0500 Body height 167.6 cm Peyton Riddler [employer] DEVEL[employer] Work Phone: [facility] 08-11-2024 16:12-0500 Body mass index (BMI) [Ratio] 43.42 kg/m2 Peyton Daynamor [employer] DEVELOPER Work Phone: [facility] 08-11-2024 16:12-0500 Body weight 122.02 kg Peyton Daynamor [employer] DEVELOPER Work Phone: [facility] 08-11-2024 16:12-0500 Diastolic blood pressure 89 mm[Hg] Peyton Mcintoshmor [employer] DEVELOPER Work Phone: [facility] 08-11-2024 16:12-0500 Heart rate 97 /min Peyton Daynamor [employer] DEVELOPER Work Phone: [facility] 08-11-2024 16:12-0500 Systolic blood pressure 132 mm[Hg] Peyton Mcintoshmor [employer] DEVELOPER Work Phone: [facility] 06-27-2024 00:48-0500 Diastolic blood pressure 106 mm[Hg] Han Bolaños [facility] 06-27-2024 00:48-0500 Heart rate 70 /min Han Miky [facility] 06-27-2024 00:48-0500 Respiratory rate 17 /min Han Miky [facility] 06-27-2024 00:48-0500 SaO2% (BldA) [Mass fraction] 96 % Han Miky [facility] 06-27-2024 00:48-0500 Systolic blood pressure 133 mm[Hg] Han Miky [facility] 06-26-2024 23:15-0500 Body temperature 98.6 [degF] Han Miky [facility] 06-26-2024 23:15-0500 bodymassindex 2.16 kg/m2 Han Miky [facility] Comment on above: Result Comment: ^~:!ZScore [facility] 06-26-2024 23:15-0500 Diastolic blood pressure 78 mm[Hg] Han Miky [facility] 06-26-2024 23:15-0500 Heart rate 89 /min Han Miky [facility] 06-26-2024 23:15-0500 Height/Length Percentile 85.02 1 Han Miky [facility] Comment on above: Result Comment: ^~:!Percentile Source -[facility] 06-26-2024 23:15-0500 Height/Length Z-Score 1.04 1 Han Miky [facility] Comment on above: Result Comment: ^~:!ZScore [facility] 06-26-2024 23:15-0500 Respiratory rate 18 /min Han Miky [facility] 06-26-2024 23:15-0500 SaO2% (BldA) [Mass fraction] 99 % Han Miky [facility] 06-26-2024 23:15-0500 Systolic blood pressure 117 mm[Hg] Han Miky [facility] 06-26-2024 23:15-0500 Weight Percentile 99.44 % Han Miky [facility] Comment on above: Result Comment: ^~:!Percentile Source [facility] 06-26-2024 23:15-0500 Weight Z-Score 2.54 1 Han Miky [facility] Comment on above: Result Comment: ^~:!ZScore [facility] 05-22-2024 21:52-0400 Body temperature 98.24 [degF] Han Miky [facility] 05-22-2024 21:52-0400 bodymassindex 2.17 kg/m2 Han Miky [facility] Comment on above: Result Comment: ^~:!ZScore [facility] 05-22-2024 21:52-0400 Diastolic blood pressure 98 mm[Hg] Han Miky [facility] 05-22-2024 21:52-0400 Heart rate 110 /min Han Miky [facility] 05-22-2024 21:52-0400 Height/Length Percentile 85.68 1 Han Miky [facility] Comment on above: Result Comment: ^~:!Percentile Source [facility] 05-22-2024 21:52-0400 Height/Length Z-Score 1.07 1 Han Miky [facility] Comment on above: Result Comment: ^~:!ZScore [facility] 05-22-2024 21:52-0400 Respiratory rate 16 /min Han Miky [facility] 05-22-2024 21:52-0400 SaO2% (BldA) [Mass fraction] 97 % Han Miky [facility] 05-22-2024 21:52-0400 Systolic blood pressure 160 mm[Hg] Han Miky [facility] 05-22-2024 21:52-0400 Weight Percentile 99.44 % Han Bolaños [facility] Comment on above: Result Comment: ^~:!Percentile Source -[facility] 05-22-2024 21:52-0400 Weight Z-Score 2.54 1 Han Bolaños [facility] Comment on above: Result Comment: ^~:!ZScore [facility] 04-25-2024 13:15-0400 Blood Pressure Location Zenon Simonli [facility] 04-25-2024 13:15-0400 bodymassindex 2.16 kg/m2 Ritubrenda Aurorali [facility] Comment on above: Result Comment: ^~:!ZScore [facility] 04-25-2024 13:15-0400 Diastolic blood pressure 82 mm[Hg] Ritubrenda Carrillonandoli [facility] 04-25-2024 13:15-0400 Heart rate 67 /min Ritud Carrillouchli [facility] 04-25-2024 13:15-0400 Height/Length Percentile 85.07 1 Ritud Carrillouchli [facility] Comment on above: Result Comment: ^~:!Percentile Source -[facility] 04-25-2024 13:15-0400 Height/Length Z-Score 1.04 1 Mohamad Mouchli [facility] Comment on above: Result Comment: ^~:!ZScore [facility] 04-25-2024 13:15-0400 Respiratory rate 16 /min Zenon Hernandez [facility] 04-25-2024 13:15-0400 Systolic blood pressure 115 mm[Hg] Zenon Hernandez [facility] 04-25-2024 13:15-0400 Weight Percentile 99.41 % Zenon Hernandez [facility] Comment on above: Result Comment: ^~:!Percentile [facility] 04-25-2024 13:15-0400 Weight Z-Score 2.52 1 Zenon Hernandez [facility] Comment on above: Result Comment: [facility]-14-[facility] 20:04-0400 Body temperature 97.88 [degF] [facility] 04-14-2024 20:04-0400 bodymassindex 2.2 kg/m2 [facility] Comment on above: Result Comment: [facility] 04-14-2024 20:04-0400 Diastolic blood pressure 86 mm[Hg] [facility] 04-14-2024 20:04-0400 Heart rate 99 /min [facility] 04-14-2024 20:04-0400 Height/Length Percentile 85.07 1 [facility] Comment on above: Result Comment: ^~:!Percentile Source [facility] 04-14-2024 20:04-0400 Height/Length Z-Score 1.04 1 [facility] Comment on above: Result Comment: ^~:!ZScore [facility] 04-14-2024 20:04-0400 Respiratory rate 18 /min [facility] 04-14-2024 20:04-0400 SaO2% (BldA) [Mass fraction] 94 % [facility] 04-14-2024 20:04-0400 Systolic blood pressure 153 mm[Hg] [facility] 04-14-2024 20:04-0400 Weight Percentile 99.48 % [facility] Comment on above: Result Comment: ^~:!Percentile Source -[facility] 04-14-2024 20:04-0400 Weight Z-Score 2.57 1 [facility] Comment on above: Result Comment: ^~:!ZScore Source -[facility] 04-10-2024 06:16-0400 Diastolic blood pressure 98 mm[Hg] Kaylinn Dokken [facility] 04-10-2024 06:16-0400 Heart rate 84 /min Kaylinn Dokken [facility] 04-10-2024 06:16-0400 Mean blood pressure 106 mm[Hg] Kaylinn Dokken [facility] 04-10-2024 06:16-0400 SaO2% (BldA) [Mass fraction] 99 % Kaylinn Dokken [facility] 04-10-2024 06:16-0400 Systolic blood pressure 122 mm[Hg] Kaylinn Dokken [facility] 04-10-2024 06:09-0400 Heart rate 85 /min Kaylinn Dokken [facility] 04-10-2024 06:09-0400 SaO2% (BldA) [Mass fraction] 99 % Kaylinn Dokken [facility] 04-10-2024 04:33-0400 Body temperature 98.24 [degF] Kaylinn Dokken [facility] 04-10-2024 04:33-0400 bodymassindex 2.19 kg/m2 Rockyylinn Dokken [facility] Comment on above: Result Comment: [facility] 04:33-0400 Diastolic blood pressure 73 mm[Hg] Rockyylinn Dokken [facility] 04-10-2024 04:33-0400 Heart rate 103 /min Rockyylinn Dokken [facility] 04-10-2024 04:33-0400 Height/Length Percentile 85.07 1 Rockyylinn Dokken [facility] Comment on above: Result Comment: ^~:!Percentile Source -[facility] 04-10-2024 04:33-0400 Height/Length Z-Score 1.04 1 Alexinn Dokken [facility] Comment on above: Result Comment: [facility] 04-10-2024 04:33-0400 Respiratory rate 16 /min Alexinn Dokken [facility] 04-10-2024 04:33-0400 SaO2% (BldA) [Mass fraction] 97 % Rockyylinn Dokken [facility] 04-10-2024 04:33-0400 Systolic blood pressure 116 mm[Hg] Rockyylinn Dokken [facility] 04-10-2024 04:33-0400 Weight Percentile 99.46 % Rockyylinn Dokken [facility] Comment on above: Result Comment: ^~:!Percentile Source -[facility] 04-10-2024 04:33-0400 Weight Z-Score 2.55 1 Ko Draper [facility] Comment on above: Result Comment: ^~:!ZSrolanda [facility] 03-15-2024 01:00-0400 Diastolic blood pressure 98 mm[Hg] Han Miky [facility] 03-15-2024 01:00-0400 Heart rate 68 /min Han Miky [facility] 03-15-2024 01:00-0400 Mean blood pressure 114 mm[Hg] Han Miky [facility] 03-15-2024 01:00-0400 Respiratory rate 18 /min Han Miky [facility] 03-15-2024 01:00-0400 SaO2% (BldA) [Mass fraction] 100 % Han Miky [facility] 03-15-2024 01:00-0400 Systolic blood pressure 145 mm[Hg] Han Miky [facility] 03-15-2024 00:00-0400 Diastolic blood pressure 88 mm[Hg] Han Miky [facility] 03-15-2024 00:00-0400 Heart rate 80 /min Han Miky [facility] 03-15-2024 00:00-0400 Mean blood pressure 103 mm[Hg] Han Miky [facility] 03-15-2024 00:00-0400 Respiratory rate 11 /min Ahn Miky [facility] 03-15-2024 00:00-0400 SaO2% (BldA) [Mass fraction] 98 % Han Miky [facility] 03-15-2024 00:00-0400 Systolic blood pressure 133 mm[Hg] Han Miky [facility] 03-14-2024 23:00-0400 Diastolic blood pressure 62 mm[Hg] Han Miky [facility] 03-14-2024 23:00-0400 Heart rate 75 /min Han Miky [facility] 03-14-2024 23:00-0400 Mean blood pressure 79 mm[Hg] Han Miky [facility] 03-14-2024 23:00-0400 Respiratory rate 20 /min Han Miky [facility] 03-14-2024 23:00-0400 SaO2% (BldA) [Mass fraction] 97 % Han Miky [facility] 03-14-2024 23:00-0400 Systolic blood pressure 113 mm[Hg] Han Miky [facility] 03-14-2024 21:40-0400 Body temperature 97.88 [degF] Han Miky [facility] 03-14-2024 21:40-0400 bodymassindex 2.2 kg/m2 Han Miky [facility] Comment on above: Result Comment: ^~:!ZScore Source -[facility] 03-14-2024 21:40-0400 Heart rate 92 /min Han Miky [facility] 03-14-2024 21:40-0400 Height/Length Percentile 85.45 1 Han Imky [facility] Comment on above: Result Comment: ^~:!Percentile Source -[facility] 03-14-2024 21:40-0400 Height/Length Z-Score 1.06 1 Han Miky [facility] Comment on above: Result Comment: ^~:!ZScore [facility] 03-14-2024 21:40-0400 Respiratory rate 16 /min Han Miky [facility] 03-14-2024 21:40-0400 Weight Percentile 99.46 % Han Miky [facility] Comment on above: Result Comment: ^~:!Percentile Source -[facility] 03-14-2024 21:40-0400 Weight Z-Score 2.55 1 Han Miky [facility] Comment on above: Result Comment: ^~:!ZScore [facility] 02-09-2024 14:30-0400 Blood Pressure Location Radha Steeny [facility] [place] 02-09-2024 14:30-0400 bodymassindex 2.26 kg/m2 Radha Steeny [facility] Comment on above: Result Comment: ^~:!ZScore [facility] 02-09-2024 14:30-0400 Diastolic blood pressure 80 mm[Hg] Radha Vizcainourany [facility] 02-09-2024 14:30-0400 Heart rate 92 /min Radha Vizcainourany [facility] [place] 02-09-2024 14:30-0400 Height/Length Percentile 60.56 1 Radha Mourany [facility] Comment on above: Result Comment: ^~:!Percentile Source -[facility] 02-09-2024 14:30-0400 Height/Length Z-Score 0.27 1 Radha Mourany [facility] [place] Comment on above: Result Comment: ^~:!ZScore [facility] 02-09-2024 14:30-0400 Systolic blood pressure 110 mm[Hg] Radha Cantor [facility] [place] 02-09-2024 14:30-0400 Weight Percentile 99.39 % Radha Cantor [facility] Comment on above: Result Comment: ^~:!Percentile Source -[facility] 02-09-2024 14:30-0400 Weight Z-Score 2.51 1 Radha Cantor [facility] Comment on above: Result Comment: ^~:!ZScore [facility] 01-22-2024 09:44-0400 Blood Pressure Location Bonfyregray Simonli [facility] 01-22-2024 09:44-0400 bodymassindex 2.28 kg/m2 Mohgray Mouchli [facility] Comment on above: Result Comment: ^~:!ZScore [facility] 01-22-2024 09:44-0400 Diastolic blood pressure 78 mm[Hg] Ritud Mouchli [facility] 01-22-2024 09:44-0400 Heart rate 94 /min Mohashleyd Mouchli [facility] 01-22-2024 09:44-0400 Height/Length Percentile 60.60 1 Mohamad Mouchli [facility] Comment on above: Result Comment: ^~:!Percentile Source -[facility] 01-22-2024 09:44-0400 Height/Length Z-Score 0.27 1 Mohamad Mouchli [facility] Comment on above: Result Comment: ^~:!ZScore [facility] 01-22-2024 09:44-0400 Respiratory rate 16 /min Zenon Hernandez [facility] 01-22-2024 09:44-0400 Systolic blood pressure 111 mm[Hg] Zneon Simonli [facility] 01-22-2024 09:44-0400 Weight Percentile 99.42 % Zenon Hernandez [place] [facility] Comment on above: Result Comment: ^~:!Percentile Source -[facility] 01-22-2024 09:44-0400 Weight Z-Score 2.52 1 Zenon Hernandez [place] [facility] Comment on above: Result Comment: ^~:!ZScore Source [facility] 01-13-2024 21:06-0400 Body temperature 98.06 [degF] [facility] 01-13-2024 21:06-0400 Diastolic blood pressure 93 mm[Hg] [facility] 01-13-2024 21:06-0400 Heart rate 71 /min [facility] 01-13-2024 21:06-0400 Mean blood pressure 105 mm[Hg] [facility] 01-13-2024 21:06-0400 Respiratory rate 18 /min [facility] 01-13-2024 21:06-0400 SaO2% (BldA) [Mass fraction] 96 % [facility] 01-13-2024 21:06-0400 Systolic blood pressure 130 mm[Hg] [facility] 01-13-2024 20:40-0400 Diastolic blood pressure 90 mm[Hg] [facility] 01-13-2024 20:40-0400 Heart rate 74 /min [facility] 01-13-2024 20:40-0400 Mean blood pressure 112 mm[Hg] [facility] 01-13-2024 20:40-0400 Systolic blood pressure 156 mm[Hg] [facility] 01-13-2024 19:43-0400 Diastolic blood pressure 84 mm[Hg] [facility] 01-13-2024 19:43-0400 Heart rate 76 /min [facility] 01-13-2024 19:43-0400 Mean blood pressure 100 mm[Hg] [facility] 01-13-2024 19:43-0400 Respiratory rate 18 /min [facility] 01-13-2024 19:43-0400 SaO2% (BldA) [Mass fraction] 97 % [facility] 01-13-2024 19:43-0400 Systolic blood pressure 131 mm[Hg] [facility] 01-13-2024 19:01-0400 Respiratory rate 16 /min [facility] 01-13-2024 19:01-0400 SaO2% (BldA) [Mass fraction] 97 % [facility] 01-13-2024 18:29-0400 Body temperature 98.42 [degF] [facility] 01-13-2024 18:29-0400 bodymassindex 2.3 kg/m2 [facility] Comment on above: [facility]: [facility] 18:29-0400 Heart rate 75 /min [facility] 01-13-2024 18:29-0400 Height/Length Percentile 61.20 1 [facility] Comment on above: Result Comment: ^~:!Percentile [facility] 01-13-2024 18:29-0400 Height/Length Z-Score 0.28 1 [facility] Comment on above: Result Comment: ^~:!ZScore [facility] 01-13-2024 18:29-0400 Weight Percentile 99.46 % [facility] Comment on above: Result Comment: ^~:!Percentile Source -[facility] 01-13-2024 18:29-0400 Weight Z-Score 2.55 1 [facility] Comment on above: Result Comment: ^~:!ZScore Source -[facility] 01-12-2024 17:20-0400 Diastolic blood pressure 91 mm[Hg] [facility] 01-12-2024 17:20-0400 Heart rate 74 /min [facility] 01-12-2024 17:20-0400 Mean blood pressure 108 mm[Hg] [facility] 01-12-2024 17:20-0400 Respiratory rate 16 /min [facility] 01-12-2024 17:20-0400 SaO2% (BldA) [Mass fraction] 100 % [facility] 01-12-2024 17:20-0400 Systolic blood pressure 143 mm[Hg] [facility] 01-12-2024 16:59-0400 Blood Pressure Location [facility] 01-12-2024 16:59-0400 Diastolic blood pressure 91 mm[Hg] [facility] 01-12-2024 16:59-0400 Heart rate 82 /min [facility] 01-12-2024 16:59-0400 Mean blood pressure 108 mm[Hg] [facility] 01-12-2024 16:59-0400 Respiratory rate 16 /min [facility] 01-12-2024 16:59-0400 SaO2% (BldA) [Mass fraction] 100 % [facility] 01-12-2024 16:59-0400 Systolic blood pressure 143 mm[Hg] [facility] 01-12-2024 14:56-0400 Body temperature 98.6 [degF] [facility] 01-12-2024 14:56-0400 bodymassindex 2.3 kg/m2 [facility] Comment on above: Result Comment: ^~:!ZScore [facility] 01-12-2024 14:56-0400 Diastolic blood pressure 86 mm[Hg] [facility] 01-12-2024 14:56-0400 Heart rate 93 /min [facility] 01-12-2024 14:56-0400 Height/Length Percentile 61.20 1 [facility] Comment on above: Result Comment: ^~:!Percentile Source [facility] 01-12-2024 14:56-0400 Height/Length Z-Score 0.28 1 [facility] Comment on above: Result Comment: ^~:!ZScore [facility] 01-12-2024 14:56-0400 Respiratory rate 18 /min [facility] 01-12-2024 14:56-0400 SaO2% (BldA) [Mass fraction] 99 % [facility] 01-12-2024 14:56-0400 Systolic blood pressure 135 mm[Hg] [facility] 01-12-2024 14:56-0400 Weight Percentile 99.46 % [facility] Comment on above: Result Comment: ^~:!Percentile Source -[facility] 01-12-2024 14:56-0400 Weight Z-Score 2.55 1 [facility] Comment on above: Result Comment: ^~:!ZScore Source [facility] 06-30-2023 13:40-0500 Body height 165.1 cm Valorie Hansen MD Work Phone: [facility] 06-30-2023 13:40-0500 Body mass index (BMI) [Percentile] Per age and sex 99.59 % Valorie Hansen MD Work Phone: [facility] 06-30-2023 13:40-0500 Body mass index (BMI) [Ratio] 43.4 kg/m2 Valorie Hansen MD Work Phone: [facility] 06-30-2023 13:40-0500 Body weight 118.3 kg Valorie Hansen MD Work Phone: [facility] 06-30-2023 13:40-0500 Respiratory rate 16 /min Valorie Hansen MD Work Phone: [facility] 05-13-2023 13:00-0400 Hourly Rounding [facility] 05-13-2023 13:00-0400 Promise to Return [facility] 05-13-2023 12:00-0400 Body temperature 98.24 [degF] [facility] 05-13-2023 12:00-0400 Diastolic blood pressure 84 mm[Hg] [facility] 05-13-2023 12:00-0400 Heart rate 76 /min [facility] 05-13-2023 12:00-0400 Hourly Rounding [facility] 05-13-2023 12:00-0400 Mean blood pressure 93 mm[Hg] [facility] 05-13-2023 12:00-0400 Promise to Return [facility] 05-13-2023 12:00-0400 Respiratory rate 14 /min [facility] 05-13-2023 12:00-0400 SaO2% (BldA) [Mass fraction] 96 % [facility] 05-13-2023 12:00-0400 Systolic blood pressure 112 mm[Hg] [facility] 05-13-2023 11:00-0400 Diastolic blood pressure 71 mm[Hg] [facility] 05-13-2023 11:00-0400 Heart rate 90 /min [facility] 05-13-2023 11:00-0400 Hourly Rounding [facility] 05-13-2023 11:00-0400 Mean blood pressure 84 mm[Hg] [facility] 05-13-2023 11:00-0400 Promise to Return [facility] 05-13-2023 11:00-0400 Respiratory rate 13 /min [facility] 05-13-2023 11:00-0400 SaO2% (BldA) [Mass fraction] 97 % [facility] 05-13-2023 11:00-0400 Systolic blood pressure 111 mm[Hg] [facility] 05-13-2023 10:00-0400 Diastolic blood pressure 86 mm[Hg] [facility] 05-13-2023 10:00-0400 Heart rate 75 /min [facility] 05-13-2023 10:00-0400 Mean blood pressure 97 mm[Hg] [facility] 05-13-2023 10:00-0400 Systolic blood pressure 119 mm[Hg] [facility] 05-13-2023 08:00-0400 Body temperature 98.78 [degF] [facility] 05-13-2023 06:00-0400 Blood Pressure Location [facility] 05-13-2023 05:27-0400 weight 2.47 1 [facility] Comment on above: Result Comment: ^~:!ZScore Source -[facility] 05-13-2023 05:27-0400 Weight Percentile 99.33 % [facility] Comment on above: Result Comment: ^~:!Percentile Source -[facility] 05-13-2023 04:00-0400 Body temperature 97.88 [degF] [facility] 05-12-2023 09:00-0400 weight 2.48 1 [facility] Comment on above: Result Comment: ^~:!ZScore Source [facility] 05-12-2023 09:00-0400 Weight Percentile 99.34 % [facility] Comment on above: Result Comment: ^~:!Percentile Source [facility] 05-12-2023 06:18-0400 weight 2.46 1 [facility] Comment on above: Result Comment: ^~:!ZScore Source -CDC ^~:!ZScore Source [facility] 05-12-2023 06:18-0400 Weight Percentile 99.30 % [facility] Comment on above: Result Comment: ^~:!Percentile Source [facility] ^~:!Percentile Source [facility] 05-11-2023 20:00-0400 Body temperature 97.88 [degF] [facility] 05-11-2023 08:01-0400 bodymassindex 2.34 kg/m2 [facility] Comment on above: Result Comment: ^~:!ZScore Source -[facility] 05-11-2023 08:01-0400 Height/Length Percentile 61.66 1 [facility] Comment on above: Result Comment: ^~:!Percentile Source -[facility] 05-11-2023 08:01-0400 Height/Length Z-Score 0.30 1 [facility] Comment on above: Result Comment: [facility] 05-11-2023 07:58-0400 bodymassindex 2.34 kg/m2 [facility] Comment on above: Result Comment: [facility] 07:58-0400 Height/Length Percentile 61.66 1 Hasarchana [facility] Comment on above: Result Comment: ^~:!Percentile Source -[facility] 05-11-2023 07:58-0400 Height/Length Z-Score 0.30 1 Hasarchana [facility] Comment on above: Result Comment: [facility]-16-2023 17:47-0400 Diastolic blood pressure 80 mm[Hg] [facility] 03-16-2023 17:47-0400 Heart rate 84 /min [facility] 03-16-2023 17:47-0400 Respiratory rate 17 /min [facility] 03-16-2023 17:47-0400 SaO2% (BldA) [Mass fraction] 99 % [facility] 03-16-2023 17:47-0400 Systolic blood pressure 133 mm[Hg] [facility] 03-16-2023 16:52-0400 Body temperature 98.42 [degF] [facility] 03-16-2023 16:52-0400 bodymassindex 2.36 [facility] Comment on above: Result Comment: [facility]-16-2023 16:52-0400 Diastolic blood pressure 92 mm[Hg] [facility] 03-16-2023 16:52-0400 Heart rate 104 /min [facility] 03-16-2023 16:52-0400 Height/Length Percentile 61.80 [facility]ha [facility] Comment on above: Result Comment: ^~:!Percentile Source -[facility] 03-16-2023 16:52-0400 Height/Length Z-Score 0.30 [facility] Comment on above: Result Comment: [facility]-16-2023 16:52-0400 Respiratory rate 17 /min [facility] 03-16-2023 16:52-0400 SaO2% (BldA) [Mass fraction] 98 % [facility] 03-16-2023 16:52-0400 Systolic blood pressure 118 mm[Hg] [facility] 03-16-2023 16:52-0400 weight 2.52 [facility] Comment on above: Result Comment: ^~:![facility] 03-16-2023 16:52-0400 Weight Percentile 99.41 % [facility] Comment on above: Result Comment: ^~:!Percentile Source -[facility] 03-13-2023 07:30-0400 Body temperature 98.1 [degF] MD Fredi Ellington Work Phone: [facility] 03-13-2023 07:30-0400 Diastolic blood pressure 65 mm[Hg] MD Fredi Ellington Work Phone: [facility] 03-13-2023 07:30-0400 Heart rate 60 /min MD Fredi Ellington Work Phone: [facility] 03-13-2023 07:30-0400 Respiratory rate 16 /min MD Fredi Ellington Work Phone: [facility] 03-13-2023 07:30-0400 SaO2% (BldA) [Mass fraction] 95 % MD Fredi Ellington Work Phone: [facility] 03-13-2023 07:30-0400 Systolic blood pressure 97 mm[Hg] MD Fredi Ellington Work Phone: [facility] 03-11-2023 15:15-0400 Body height 165.1 cm MD Fredi Ellington Work Phone: [facility] 03-10-2023 15:55-0400 Body weight 113.39 kg MD Fredi Ellington Work Phone: [facility] 03-10-2023 13:00-0400 Hourly Rounding [facility] 03-10-2023 13:00-0400 Promise to Return [facility] 03-10-2023 12:28-0400 Hourly Rounding [facility] 03-10-2023 12:28-0400 Promise to Return [facility] 03-10-2023 11:00-0400 Blood Pressure Location [facility] 03-10-2023 11:00-0400 Body temperature 98.06 [degF] [facility] 03-10-2023 11:00-0400 Diastolic blood pressure 73 mm[Hg] [facility] 03-10-2023 11:00-0400 Heart rate 91 /min [facility] 03-10-2023 11:00-0400 Hourly Rounding [facility] 03-10-2023 11:00-0400 Mean blood pressure 85 mm[Hg] [facility] 03-10-2023 11:00-0400 Promise to Return [facility] 03-10-2023 11:00-0400 Respiratory rate 16 /min [facility] 03-10-2023 11:00-0400 SaO2% (BldA) [Mass fraction] 97 % [facility] 03-10-2023 11:00-0400 Systolic blood pressure 109 mm[Hg] [facility] 03-10-2023 07:00-0400 Body temperature 97.88 [degF] [facility] 03-10-2023 07:00-0400 Diastolic blood pressure 72 mm[Hg] [facility] 03-10-2023 07:00-0400 Heart rate 87 /min [facility] 03-10-2023 07:00-0400 Mean blood pressure 86 mm[Hg] [facility] 03-10-2023 07:00-0400 Respiratory rate 18 /min [facility] 03-10-2023 07:00-0400 SaO2% (BldA) [Mass fraction] 96 % [facility] 03-10-2023 07:00-0400 Systolic blood pressure 115 mm[Hg] [facility] 03-10-2023 05:04-0400 weight 2.52 [facility] Comment on above: Result Comment: ^~:!ZScore [facility] 03-10-2023 05:04-0400 Weight Percentile 99.41 % [facility] Comment on above: Result Comment: ^~:!Percentile Source -[facility] 03-10-2023 00:14-0400 Blood Pressure Location [facility] 03-10-2023 00:14-0400 Body temperature 98.06 [degF] [facility] 03-10-2023 00:14-0400 Diastolic blood pressure 74 mm[Hg] [facility] 03-10-2023 00:14-0400 Heart rate 79 /min [facility] 03-10-2023 00:14-0400 Mean blood pressure 89 mm[Hg] [facility] 03-10-2023 00:14-0400 Respiratory rate 16 /min [facility] 03-10-2023 00:14-0400 Systolic blood pressure 118 mm[Hg] [facility] 03-09-2023 19:28-0400 SaO2% (BldA) [Mass fraction] 95 % [facility] 03-09-2023 19:28-0400 Mean blood pressure 91 mm[Hg] [facility] 03-09-2023 19:27-0400 Body temperature 98.06 [degF] [facility] 03-09-2023 12:39-0400 weight 2.44 [facility] Comment on above: Result Comment: ^~:!ZScore [facility] 03-09-2023 12:39-0400 Weight Percentile 99.26 % [facility] Comment on above: Result Comment: ^~:!Percentile Source -[facility] 03-08-2023 10:57-0400 Body temperature 97.88 [degF] [facility] 03-08-2023 10:56-0400 Mean blood pressure 89 mm[Hg] [facility] 03-08-2023 07:28-0400 Mean blood pressure 97 mm[Hg] [facility] 03-08-2023 07:28-0400 Heart rate 81 /min [facility] 03-08-2023 07:28-0400 Respiratory rate 21 /min [facility] 03-08-2023 06:49-0400 weight 2.80 [facility] Comment on above: Result Comment: ^~:!Debbie [facility] 03-08-2023 06:49-0400 Weight Percentile 99.74 % [facility] Comment on above: Result Comment: ^~:!Percentile Source -[facility] 03-07-2023 23:48-0400 Respiratory rate 18 /min [facility] 03-07-2023 20:57-0400 Respiratory rate 18 /min [facility] 03-07-2023 20:02-0400 bodymassindex 2.58 [facility] Comment on above: Result Comment: [facility] 20:02-0400 Height/Length Percentile 61.80 [facility] Comment on above: Result Comment: ^~:!Percentile Source -[facility] 03-07-2023 20:02-0400 Height/Length Z-Score 0.30 [facility] Comment on above: Result Comment: ^~:!ZScore [facility] 03-07-2023 18:52-0400 bodymassindex 2.58 [facility] Comment on above: Result Comment: ^~:!ZScore [facility] 03-07-2023 18:52-0400 Heart rate 91 /min [facility] 03-07-2023 18:52-0400 Height/Length Percentile 61.80 [facility] Comment on above: Result Comment: ^~:!Percentile Source -[facility] 03-07-2023 18:52-0400 Height/Length Z-Score 0.30 [facility] Comment on above: Result Comment: ^~:!ZScore [facility] 03-07-2023 14:11-0400 bodymassindex 2.33 [facility] Comment on above: Result Comment: ^~:!ZScore [facility] 03-07-2023 14:11-0400 Heart rate 105 /min [facility] 03-07-2023 14:11-0400 Height/Length Percentile 61.21 [facility] Comment on above: Result Comment: ^~:!Percentile Source -[facility] 03-07-2023 14:11-0400 Height/Length Z-Score 0.28 [facility] Comment on above: Result Comment: ^~:!ZScore [facility] 11-13-2022 13:56-0400 Body temperature 98.06 [degF] Wilfredo [facility] 11-13-2022 13:56-0400 bodymassindex 2.31 Wilfred[facility] Comment on above: Result Comment: ^~:![facility] 11-13-2022 13:56-0400 Diastolic blood pressure 85 mm[Hg] Wilfredo [facility] 11-13-2022 13:56-0400 Heart rate 94 /min Wilfredo [facility] 11-13-2022 13:56-0400 Height/Length Percentile 61.53 Wilfredo [facility] Comment on above: Result Comment: ^~:!Percentile Source -[facility] [place] 11-13-2022 13:56-0400 Height/Length Z-Score 0.29 Wilfredo [facility] Comment on above: Result Comment: ^~:![facility] 11-13-2022 13:56-0400 Respiratory rate 16 /min Wilfredo [facility] 11-13-2022 13:56-0400 SaO2% (BldA) [Mass fraction] 97 % Wilfredo [facility] 11-13-2022 13:56-0400 Systolic blood pressure 135 mm[Hg] Wilfredo [facility] 11-13-2022 13:56-0400 weight 2.42 Wilfredo [facility] Comment on above: Result Comment: ^~:![facility] 11-13-2022 13:56-0400 Weight Percentile 99.23 % Wilfred[facility] Comment on above: Result Comment: ^~:!Percentile Source -[facility] 10-11-2022 01:10-0500 Diastolic blood pressure 74 mm[Hg] Kaylinn [facility] 10-11-2022 01:10-0500 Heart rate 85 /min [facility] 10-11-2022 01:10-0500 Respiratory rate 12 /min [facility] 10-11-2022 01:10-0500 SaO2% (BldA) [Mass fraction] 98 % [facility]linn [facility] 10-11-2022 01:10-0500 Systolic blood pressure 118 mm[Hg] [facility] 10-11-2022 00:04-0500 Diastolic blood pressure 74 mm[Hg] [facility] 10-11-2022 00:04-0500 Heart rate 74 /min [facility] 10-11-2022 00:04-0500 Respiratory rate 12 /min [facility] 10-11-2022 00:04-0500 SaO2% (BldA) [Mass fraction] 97 % Kaylinn [facility] 10-11-2022 00:04-0500 Systolic blood pressure 101 mm[Hg] [facility] 10-10-2022 23:00-0500 Diastolic blood pressure 85 mm[Hg] Kayl[facility] 10-10-2022 23:00-0500 Heart rate 87 /min [facility] 10-10-2022 23:00-0500 Mean blood pressure 92 mm[Hg] Kaylinn [facility] 10-10-2022 23:00-0500 Respiratory rate 20 /min [facility] 10-10-2022 23:00-0500 Systolic blood pressure 105 mm[Hg] Rockyylinn [facility] 10-10-2022 21:54-0500 Body temperature 98.42 [degF] Rockyylinn [facility] 10-10-2022 21:54-0500 bodymassindex 2.32 Kaylinn [facility] Comment on above: Result Comment: ^~:![facility] 10-10-2022 21:54-0500 Height/Length Percentile 62.20 Kayl[facility] Comment on above: Result Comment: ^~:![facility] 10-10-2022 21:54-0500 Height/Length Z-Score 0.31 Rockyylinn [facility] Comment on above: Result Comment: [facility]-10-[facility] 21:54-0500 Respiratory rate 15 /min Rockyylinn [facility] 10-10-2022 21:54-0500 weight 2.43 Kayl[facility] Comment on above: Result Comment: [facility] 10-10-2022 21:54-0500 Weight Percentile 99.24 % Kaylinn [facility] Comment on above: Result Comment: ^~:!Percentile Source -[facility] 10-06-2022 14:00-0500 Diastolic blood pressure 69 mm[Hg] Han [facility] 10-06-2022 14:00-0500 Heart rate 79 /min [facility] 10-06-2022 14:00-0500 Mean blood pressure 87 mm[Hg] Han [facility] 10-06-2022 14:00-0500 Respiratory rate 18 /min [facility] 10-06-2022 14:00-0500 SaO2% (BldA) [Mass fraction] 95 % Han [facility] 10-06-2022 14:00-0500 Systolic blood pressure 122 mm[Hg] Han [facility] 10-06-2022 00:30-0500 Diastolic blood pressure 60 mm[Hg] Han [facility] 10-06-2022 00:30-0500 Heart rate 88 /min [facility] 10-06-2022 00:30-0500 Respiratory rate 18 /min [facility] 10-06-2022 00:30-0500 SaO2% (BldA) [Mass fraction] 96 % Han [facility] 10-06-2022 00:30-0500 Systolic blood pressure 102 mm[Hg] Han [facility] 10-05-2022 23:51-0500 Body temperature 97.7 [degF] [facility] 10-05-2022 23:51-0500 bodymassindex 2.34 Han [facility] Comment on above: Result Comment: [facility]-05-2022 23:51-0500 Diastolic blood pressure 78 mm[Hg] Han [facility] 10-05-2022 23:51-0500 Heart rate 89 /min [facility] 10-05-2022 23:51-0500 Height/Length Percentile 61.61 Han [facility] Comment on above: Result Comment: ^~:!Percentile [facility] 10-05-2022 23:51-0500 Height/Length Z-Score 0.30 Han [facility] Comment on above: Result Comment: [facility] 10-05-2022 23:51-0500 Respiratory rate 18 /min Han [facility] 10-05-2022 23:51-0500 SaO2% (BldA) [Mass fraction] 95 % Han [facility] 10-05-2022 23:51-0500 Systolic blood pressure 171 mm[Hg] Han [facility] 10-05-2022 23:51-0500 weight 2.45 Han [facility] Comment on above: Result Comment: [facility] 10-05-2022 23:51-0500 Weight Percentile 99.29 % Han [facility] Comment on above: Result Comment: ^~:!Percentile Source -[facility] 07-08-2022 22:00-0500 Body temperature 98.78 [degF] Kaylinn [facility] 07-08-2022 22:00-0500 Diastolic blood pressure 74 mm[Hg] Kaylinn [facility] 07-08-2022 22:00-0500 Heart rate 77 /min Kaylinn [facility] 07-08-2022 22:00-0500 Mean blood pressure 86 mm[Hg] Kaylinn [facility] 07-08-2022 22:00-0500 Respiratory rate 12 /min Kaylinn [facility] 07-08-2022 22:00-0500 SaO2% (BldA) [Mass fraction] 97 % Kaylinn [facility] 07-08-2022 22:00-0500 Systolic blood pressure 110 mm[Hg] Kaylinn [facility] 07-08-2022 21:44-0500 Body temperature 99.32 [degF] Kaylinn [facility] 07-08-2022 21:44-0500 Diastolic blood pressure 73 mm[Hg] Kayl[facility] 07-08-2022 21:44-0500 Heart rate 90 /min Kayl[facility] 07-08-2022 21:44-0500 Mean blood pressure 88 mm[Hg] Kayl[facility] 07-08-2022 21:44-0500 Respiratory rate 16 /min [facility] 07-08-2022 21:44-0500 SaO2% (BldA) [Mass fraction] 96 % [facility] 07-08-2022 21:44-0500 Systolic blood pressure 119 mm[Hg] Kayl[facility] 07-08-2022 21:00-0500 Diastolic blood pressure 67 mm[Hg] Kayl[facility] 07-08-2022 21:00-0500 Heart rate 80 /min [facility] 07-08-2022 21:00-0500 Mean blood pressure 83 mm[Hg] Kayl[facility] 07-08-2022 21:00-0500 SaO2% (BldA) [Mass fraction] 98 % [facility] 07-08-2022 21:00-0500 Systolic blood pressure 116 mm[Hg] [facility] 07-08-2022 18:52-0500 Body temperature 100.04 [degF] Kaylinn [facility] 07-08-2022 18:52-0500 bodymassindex 2.38 Kaylinn [facility] Comment on above: Result [facility]: [facility] Heart rate 86 /min Kaylinn D[facility] 07-08-2022 18:52-0500 Height/Length Percentile 61.90 % Ko Draper [facility] Comment on above: Result Comment: ^~:!Percentile Source -[facility] 07-08-2022 18:52-0500 Height/Length Z-Score 0.30 Ko Draper [facility] Comment on above: Result Comment: ^~:![facility]Score [facility] 07-08-2022 18:52-0500 Respiratory rate 18 /min Ko Draper [facility] 07-08-2022 18:52-0500 weight 2.47 Ko Draper [facility] Comment on above: Result Comment: ^~:![facility]Score [facility] 07-08-2022 18:52-0500 Weight Percentile 99.33 % Ko Draper [facility] Comment on above: Result Comment: ^~:!Percentile Source -[facility] 07-04-2022 18:09-0500 Body temperature 98.06 [degF] Radha Wh[facility] 07-04-2022 18:09-0500 bodymassindex 2.21 Radha Whipple [facility] Comment on above: Result Comment: ^~:![facility]Score [facility] 07-04-2022 18:09-0500 Diastolic blood pressure 83 mm[Hg] Radha Whipple [facility] 07-04-2022 18:09-0500 Heart rate 99 /min Radha Whipple [facility] 07-04-2022 18:09-0500 Height/Length Percentile 61.90 % Radha Whipple [facility] Comment on above: Result Comment: ^~:!Percentile Source -[facility] 07-04-2022 18:09-0500 Height/Length Z-Score 0.30 Radha Whipple [facility] Comment on above: Result Comment: ^~:![facility] 07-04-2022 18:09-0500 Respiratory rate 18 /min Radha Whipple [facility] 07-04-2022 18:09-0500 SaO2% (BldA) [Mass fraction] 97 % Radha Whipple [facility] 07-04-2022 18:09-0500 Systolic blood pressure 121 mm[Hg] Radha Whipple [facility] 07-04-2022 18:09-0500 weight 2.29 Radha Whipple [facility] Comment on above: Result Comment: ^~:![facility] 07-04-2022 18:09-0500 Weight Percentile 98.88 % Radha Whipple [facility] Comment on above: Result Comment: ^~:!Percentile Source -[facility] 07-02-2022 16:02-0500 Diastolic blood pressure 64 mm[Hg] Wilfredo [facility] 07-02-2022 16:02-0500 Heart rate 95 /min Wilfredo Villareal [facility] 07-02-2022 16:02-0500 Respiratory rate 18 /min Wilfredo [facility] 07-02-2022 16:02-0500 SaO2% (BldA) [Mass fraction] 95 % Wilfredo Villareal [facility] 07-02-2022 16:02-0500 Systolic blood pressure 108 mm[Hg] Wilfredo Villareal [facility] 07-02-2022 14:24-0500 Diastolic blood pressure 78 mm[Hg] Wilfredo Villareal [facility] 07-02-2022 14:24-0500 Heart rate 95 /min Wilfredo Vill[facility]al [facility] 07-02-2022 14:24-0500 Respiratory rate 18 /min Wilfredo Vill[facility] 07-02-2022 14:24-0500 SaO2% (BldA) [Mass fraction] 96 % Wilfredo Villareal [facility] 07-02-2022 14:24-0500 Systolic blood pressure 137 mm[Hg] Wilfredo Villareal [facility] 07-02-2022 13:28-0500 Body temperature 98.06 [degF] Wilfredo Villareal [facility] 07-02-2022 13:28-0500 bodymassindex 2.21 Wilfredo Villareal [facility] Comment on above: Result Comment: ^~:![facility]Score [facility] 07-02-2022 13:28-0500 Diastolic blood pressure 74 mm[Hg] Wilfredo Villareal [facility] 07-02-2022 13:28-0500 Heart rate 108 /min Wilfredo Vill[facility]al [facility] 07-02-2022 13:28-0500 Height/Length Percentile 61.90 % Wilfredo Villareal [facility] Comment on above: Result Comment: ^~:!Percentile Source [facility] 07-02-2022 13:28-0500 Height/Length Z-Score 0.30 Wilfredo Villareal [facility] Comment on above: Result Comment: ^~:![facility]Score [facility] 07-02-2022 13:28-0500 Respiratory rate 18 /min Wilfredo Villareal [facility] 07-02-2022 13:28-0500 SaO2% (BldA) [Mass fraction] 98 % Wilfredo Villareal [facility] 07-02-2022 13:28-0500 Systolic blood pressure 130 mm[Hg] Wilfredo Villareal [facility] 07-02-2022 13:28-0500 weight 2.29 Wilfredo Villareal [facility] Comment on above: Result Comment: ^~:!ZScore Source -[facility] 07-02-2022 13:28-0500 Weight Percentile 98.88 % Wilfredo Villareal [facility] Comment on above: Result Comment: ^~:!Percentile Source -[facility] 12-05-2021 22:39-0400 Blood Pressure Location Wilfredo Mono [facility] 12-05-2021 22:39-0400 Body temperature 98.42 [degF] Wilfredo Villareal [facility] 12-05-2021 22:39-0400 Diastolic blood pressure 98 mm[Hg] Wilfredo Villareal [facility] 12-05-2021 22:39-0400 Heart rate 114 /min Wilfredo Villareal [facility] 12-05-2021 22:39-0400 Mean blood pressure 110 mm[Hg] Wilfredo Mono [facility] 12-05-2021 22:39-0400 Respiratory rate 16 /min Wilfredo Villareal [facility] 12-05-2021 22:39-0400 SaO2% (BldA) [Mass fraction] 95 % Wilfredo Mono [facility] 12-05-2021 22:39-0400 Systolic blood pressure 133 mm[Hg] Wilfredo Mono [facility] 12-05-2021 19:45-0400 Blood Pressure Location Wilfredo Villareal [facility] 12-05-2021 19:45-0400 Body temperature 99.68 [degF] Wilfredo Villareal [facility] 12-05-2021 19:45-0400 Diastolic blood pressure 91 mm[Hg] Wilfredo Mono [facility] 12-05-2021 19:45-0400 Heart rate 107 /min Wilfredo Mono [facility] 12-05-2021 19:45-0400 Mean blood pressure 101 mm[Hg] Wilfredo Mono [facility] 12-05-2021 19:45-0400 Respiratory rate 16 /min Wilfredo Mono [facility] 12-05-2021 19:45-0400 SaO2% (BldA) [Mass fraction] 99 % Wilfredo Villareal [facility] 12-05-2021 19:45-0400 Systolic blood pressure 122 mm[Hg] Wilfredo Mono [facility] 12-05-2021 18:51-0400 Blood Pressure Location Wilfredokeysha Villareal [facility] 12-05-2021 18:51-0400 Diastolic blood pressure 64 mm[Hg] Wilfredokeysha Villareal [facility] 12-05-2021 18:51-0400 Heart rate 74 /min Wilfredo Mono [facility] 12-05-2021 18:51-0400 Mean blood pressure 88 mm[Hg] Wilfredo Villareal [facility] 12-05-2021 18:51-0400 Respiratory rate 16 /min Wilfredo Villareal [facility] 12-05-2021 18:51-0400 SaO2% (BldA) [Mass fraction] 99 % Wilfredo Villareal [facility] 12-05-2021 18:51-0400 Systolic blood pressure 137 mm[Hg] Wilfredo Villareal [facility] 12-05-2021 07:00-0400 Body temperature 98.6 [degF] Wilfredo Villareal [facility] Encounters Encounter Date Encounter Type Care Provider Facility Start: 03-09-2025 End: 03-09-2025 Bamboo flowsheet Martina SALAZAR Work Phone: [facility] Start: 03-09-2025 End: 03-09-2025 Bamboo flowsheet Martina SALAZAR Work Phone: [facility] Start: 03-09-2025 End: 03-09-2025 ambulatory MARTINA ARRINGTON Not Available Start: 03-09-2025 End: 03-09-2025 Office outpatient visit 15 minutes Martina SALAZAR Work Phone: [facility] Comment on above: Third trimester preg lisa ([facility]); 36 weeks gestation of ([facility]) Start: 03-02-2025 End: 03-02-2025 Bamboo flowsheet Martina SALAZAR Work Phone: [facility] Start: 03-02-2025 End: 03-02-2025 Bamboo flowsheet Martina SALAZAR Work Phone: [facility] Start: 03-02-2025 End: 03-02-2025 ambulatory MARTINA ARRINGTON Not Available Start: 03-02-2025 End: 03-02-2025 Office outpatient visit 15 minutes Martina SALAZAR Work Phone: [facility] Comment on above: Third trimester preg lisa ([facility]); 36 weeks gestation of ([facility]) Start: 02-23-2025 End: 02-23-2025 Bamboo flowsheet Ranjit Robb DO Work Phone: [facility] Start: 02-23-2025 End: 02-23-2025 Bamboo flowsheet Ranjit Robb DO Work Phone: [facility] Start: 02-23-2025 End: 02-23-2025 ambulatory RANJIT ROBB Not Available Start: 02-23-2025 End: 02-23-2025 Office outpatient visit 15 minutes Ranjit Robb DO Work Phone: [facility] Comment on above: Stomach pain (Primar y Dx); Third trimester ([facility]); 35 weeks gestation of ([facility]) Start: 02-16-2025 End: 02-16-2025 Office outpatient visit 15 minutes Martina SALAZAR Work Phone: [facility] Comment on above: Third trimester preg lisa ([facility]); 34 weeks gestation of ([facility]) Start: 02-16-2025 End: 02-16-2025 ambulatory MARTINA ARRINGTON Not Available Start: 02-01-2025 End: 02-01-2025 ambulatory RANJIT ROBB Not Available Start: 02-01-2025 End: 02-01-2025 Office outpatient visit 15 minutes Ranjit Robb DO Work Phone: [facility] Comment on above: Third trimester preg lisa ([facility]); 32 weeks gestation of ([facility]); size inconsistent with dates ([facility]) Start: 01-30-2025 ambulatory Robson Harris acility:[facility] Start: 01-18-2025 End: 01-18-2025 ambulatory MARTINA ARRINGTON Not Available Start: 01-18-2025 End: 01-18-2025 Office outpatient visit 15 minutes Martina SALAZAR Work Phone: [facility] Comment on above: Third trimester preg lisa ([facility]); 29 weeks gestation of ([facility]) Start: 01-18-2025 End: 01-18-2025 Bamboo flowsheet Martina SALAZAR Work Phone: [facility] Start: 01-18-2025 End: 01-18-2025 Bamboo flowsheet Martina SALAZAR Work Phone: [facility] Start: 12-28-2024 End: 12-28-2024 Office outpatient visit 15 minutes Ranjit Robb DO Work Phone: [facility] Comment on above: Phlebitis (Primary D x); Second trimester ; 26 weeks gestation of Start: 12-28-2024 End: 12-28-2024 ambulatory RANJIT ROBB Not Available Start: 12-01-2024 End: 12-01-2024 Clinisync Result Encounter Ranjit Robb DO Work Phone: [facility] External Department Unsolicited Start: 12-01-2024 End: 12-01-2024 Clinisync Result Encounter Ranjit Robb DO Work Phone: [facility] External Department Unsolicited Start: 11-30-2024 End: 11-30-2024 Office outpatient visit 15 minutes Ranjit Robb DO Work Phone: [facility] Comment on above: 22 weeks gestation o f ; Second trimester ; Encounter for follow-up ultrasound of anatomy; Diabetes mellitus screening; Nausea and vomiting during Start: 11-30-2024 End: 11-30-2024 ambulatory RANJIT ROBB Not Available Start: 11-30-2024 End: 11-30-2024 Bamboo flowsheet Ranjit Robb DO Work Phone: [facility] Start: 11-30-2024 End: 11-30-2024 Bamboo flowsheet Ranjit Robb DO Work Phone: [facility] Start: 11-23-2024 End: 11-23-2024 ambulatory MARTINA ARRINGTON Not Available Start: 11-09-2024 End: 11-09-2024 Bamboo flowsheet Ranjit Robb DO Work Phone: [facility] Start: 11-09-2024 End: 11-09-2024 Bamboo flowsheet Ranjit Robb DO Work Phone: [facility] Start: 11-09-2024 End: 11-09-2024 Office outpatient visit 15 minutes Ranjit Robb DO Work Phone: [facility] Comment on above: 17 weeks gestation o f ; Second trimester ; Stomach cramps; Stomach pain; Nausea and vomiting during Start: 11-09-2024 End: 11-09-2024 ambulatory RANJIT ROBB Not Available Start: 11-08-2024 End: 11-08-2024 Emergency department patient visit Radha Whipple [facility] Start: 11-02-2024 End: 11-02-2024 Office outpatient visit 15 minutes Martina SALAZAR Work Phone: [facility] Comment on above: Screening, , for anatomic survey; Second trimester ; 18 weeks gestation of ; Vaginal discharge; STD exposure Start: 11-02-2024 End: 11-02-2024 ambulatory MARTINA ARRINGTON Not Available Start: 11-02-2024 End: 11-02-2024 Bamboo flowsheet Martina SALAZAR Work Phone: [facility] Start: 11-02-2024 End: 11-04-2024 Bamboo flowsheet Martina SALAZAR Work Phone: [facility] Start: 11-02-2024 End: 11-04-2024 External Result Encounter Ranjit Robb DO Work Phone: [facility] External Department Unsolicited Start: 09-26-2024 End: 09-26-2024 Bamboo flowsheet Ranjit Robb DO Work Phone: [facility] Start: 09-26-2024 End: 09-26-2024 Bamboo flowsheet Rnajit Robb DO Work Phone: [facility] Start: 09-26-2024 End: 09-26-2024 Office outpatient visit 15 minutes Ranjit Robb DO Work Phone: [facility] Comment on above: 13 weeks gestation o f ; Second trimester ; Nausea and vomiting, unspecified vomiting type Start: 09-26-2024 End: 09-26-2024 ambulatory RANJIT ROBB Not Available Start: 09-09-2024 End: 09-09-2024 Emergency department patient visit Fredi Ellington MD Work Phone: [facility] Work Phone: Start: 09-09-2024 Registered Recurring Fredi hicks MD Work Phone: [facility] Start: 09-06-2024 End: 09-06-2024 Telephone encounter Tracie Ferrell MA [facility] Start: 08-31-2024 End: 08-31-2024 Clinisync Result Encounter Ranjit Robb DO Work Phone: [facility] External Department Unsolicited Start: 08-31-2024 End: 08-31-2024 Clinisync Result Encounter Ranjit Robb DO Work Phone: [facility] External Department Unsolicited Start: 08-25-2024 End: 08-25-2024 ambulatory [facility] Robb Nurse [facility] Comment on above: GA: [id number] Start: 08-21-2024 End: 08-21-2024 Emergency department patient visit [facility] Start: 08-11-2024 End: 08-11-2024 Office outpatient visit 15 minutes Peyton Quiroz ICT DEVELOPER Work Phone: [facility] Comment on above: Psychogenic nonepile ptic seizure (CMS/HCC) (Primary Dx); Mood disorder (CMS/HCC); Altered mental status, unspecified altered mental status type Start: 08-11-2024 End: 08-11-2024 ambulatory PEYTON QUIROZ Not Available Start: 08-11-2024 End: 08-11-2024 Bamboo flowsheet Peyton Quiroz ICT DEVELOPER Work Phone: [facility] Start: 08-11-2024 End: 08-11-2024 Wesleyboo flowsheet Peyton Richie DUPREE Work Phone: [facility] Start: 06-26-2024 End: 06-27-2024 Emergency department patient visit Han Bolaños [facility] Start: 05-22-2024 End: 05-22-2024 Emergency department patient visit Han Bolaños [facility] Start: 05-02-2024 End: 05-02-2024 ambulatory Zenon Hernandez Facility:[facility] Start: 05-02-2024 End: 05-02-2024 Patient encounter procedure Zenon Hernandez [facility] Start: 04-25-2024 End: 04-25-2024 ambulatory Zenon Hernandez Facility:[facility] Start: 04-25-2024 End: 04-25-2024 Patient encounter procedure Zenon Hernandez [facility] Start: 04-14-2024 End: 04-14-2024 Emergency department patient visit Migue Farrell Facility:[facility] Start: 04-10-2024 End: 04-10-2024 Emergency department patient visit Ko Draper [facility] Start: 04-07-2024 End: 04-07-2024 ambulatory Zenon Hernandez Facility:[facility] Start: 04-07-2024 End: 04-07-2024 Patient encounter procedure Zenon Hernandez [facility] Start: 03-31-2024 ambulatory Zenon Hernandez Faci lity:[facility] Start: 03-31-2024 End: 03-31-2024 Patient encounter procedure Zenon Hernandez [facility] Start: 03-14-2024 End: 03-15-2024 Emergency department patient visit Han Bolaños [facility] Start: 03-03-2024 End: 03-03-2024 ambulatory Zenon Hernandez Facility:[facility] Start: 03-03-2024 End: 03-03-2024 Patient encounter procedure Zenon Hernandez [facility] Start: 02-16-2024 End: 02-16-2024 ambulatory Radha Cantor Facility:[facility] Start: 02-16-2024 End: 02-16-2024 Patient encounter procedure Radha Cantor [facility] Start: 02-09-2024 End: 02-09-2024 ambulatory Zenon Hernandez Facility:[facility] Start: 02-09-2024 End: 02-09-2024 Patient encounter procedure Radha Cantor [facility] [place] Start: 01-28-2024 ambulatory [place] Start: 01-25-2024 ambulatory Astrit Hate Facility :[facility] Start: 01-22-2024 End: 01-22-2024 ambulatory Zenon Hernandez Facility:[facility] Start: 01-22-2024 End: 01-22-2024 Patient encounter procedure Zenon Hernandez [facility] Start: 01-14-2024 ambulatory Migue Farrell Facility :[facility] Start: 01-13-2024 End: 01-13-2024 Emergency department patient visit Migue Farrell [facility] Start: 01-12-2024 End: 01-12-2024 Emergency department patient visit Radha Whipple Facility:[facility] Start: 06-30-2023 ambulatory VALORIE HANSEN [facility] Start: 06-30-2023 End: 06-30-2023 Office outpatient new 30 minutes Valorie Hansen MD Work Phone: [facility] Comment on above: Macromastia (Primary Dx); Thoracic spine pain Start: 05-11-2023 End: 05-13-2023 Evaluation and management of inpatient Akosua LR [facility] Start: 03-16-2023 End: 03-16-2023 Emergency department patient visit Radha Whipple [facility] Start: 03-10-2023 End: 03-13-2023 Evaluation and management of inpatient MD Fredi Ellington Work Phone: [address] Work Phone: Start: 03-10-2023 End: 03-10-2023 ambulatory FREDI ELLINGTON [facility] Start: 03-08-2023 End: 03-10-2023 Evaluation and management of inpatient Lawrence Reveles Facility:[facility] Start: 03-07-2023 End: 03-10-2023 Evaluation and management of inpatient Orlando Wade [facility] Start: 02-27-2023 End: 02-27-2023 ambulatory MISTY MACKEY Facility:[facility] Start: 02-27-2023 End: 02-27-2023 Patient encounter procedure MISTY ROBKERRY [facility] Start: 11-14-2022 End: 11-14-2022 ambulatory [facility] Start: 11-13-2022 End: 11-13-2022 Emergency department patient visit Wilfredo Villareal [facility] Start: 11-05-2022 End: 11-06-[address] FREDI ELLINGTON . Facility:[facility] Start: 11-05-2022 End: 11-05-2022 ambulatory TEENA MARC . Facility:[facility] Start: 10-15-2022 End: 10-15-2022 ambulatory JUAN MIGUEL HUYNH [facility] Start: 10-13-2022 End: 10-13-2022 ambulatory [facility] Start: 10-10-2022 End: 10-11-2022 Emergency department patient visit Ko Draper [facility] Start: 10-06-2022 End: 10-06-2022 ambulatory [facility] Start: 10-05-2022 End: 10-06-2022 Emergency department patient visit Han Bolaños [facility] Start: 10-03-[address] FREDI ELLINGTON . Facili ty:[facility] Start: 09-25-2022 End: 09-26-[address] FREDI ELLINGTON . Facility:[facility] Start: 09-24-2022 End: 09-25-[address] FREDI ELLINGTON . Facility:[facility] Start: 09-11-2022 End: 09-11-[address] FREDI ELLINGTON . Facility:[facility] Start: 08-05-2022 End: 08-05-[address] FREDI ELLINGTON . Facility:[facility] Start: 07-31-2022 End: 07-31-2022 ambulatory MD rFedi Ellington Work Phone: [facility] Work Phone: Start: 07-31-2022 End: 07-31-2022 Patient encounter procedure MD Fredi Ellington Work Phone: [facility] [place] Work Phone: Start: 07-24-2022 End: 07-24-[address] FREDI ELLINGTON . Facility:[facility] Start: 07-23-2022 End: 07-23-[address] FREDI ELLINGTON . Facility:[facility] Start: 07-08-2022 End: 07-08-2022 Emergency department patient visit Ko Villegas Baron [facility] Start: 07-08-2022 End: 07-08-[address] FREDI ELLINGTON . Facility:[facility] Start: 07-04-2022 End: 07-04-2022 Emergency department patient visit Radha Whipple [facility] Start: 07-02-2022 End: 07-02-2022 Emergency department patient visit Wilfredo Villareal [facility] Start: 06-25-2022 End: 06-25-[address] FREDI ELLINGTON . Facility:[facility] Start: 06-20-2022 End: 06-20-[address] FREDI ELLINGTON . Facility:[facility] Start: 05-26-2022 End: 05-26-[address] RFEDI ELLINGTON . Facility:[facility] Start: 05-14-2022 End: 05-14-2022 ambulatory FREDI ELLINGTON [facility] Start: 04-26-2022 End: 04-27-[address] FREDI ELLINGTON . Facility:[facility] Start: 04-04-2022 End: 04-04-2022 Patient encounter procedure MISTY MACKEY [facility] Start: 03-20-2022 End: 03-20-[address] FREDI ELLINGTON . Facility:[facility] Start: 03-05-2022 End: 03-05-[address] FREDI ELLINGTON . Facility:[facility] Start: 01-17-2022 End: 01-17-[address] FREDI ELLINGTON . Facility:[facility] Start: 12-04-2021 End: 12-05-2021 Emergency department patient visit Wilfredo Villareal [facility] Start: 09-02-2018 Patient encounter procedure Martina Bedolla Facility:[id number] Start: 03-29-2018 Patient encounter procedure Martina Bedolla Facility:[id number] Start: 03-18-2018 Patient encounter procedure Liss Shaw [place] Facility:[id number] Start: 01-25-2018 Patient encounter procedure Martina Bedolla Facility:[id number] Procedures Date Procedure Procedure Detail Performing Clinician Start: 03-09-2025 Urnls dip stick/tabl et rgnt non-auto w/o micrscp Martina SALAZAR Work Phone: Start: 03-02-2025 Urnls dip stick/tabl et rgnt non-auto w/o micrscp Martina SALAZAR Work Phone: Start: 02-16-2025 Urnls dip stick/tabl et rgnt non-auto w/o micrscp Martina SALAZAR Work Phone: Start: 02-01-2025 Urnls dip stick/tabl et rgnt non-auto w/o micrscp Ranjit Robb DO Work Phone: Start: 01-18-2025 Urnls dip stick/tabl et rgnt non-auto w/o micrscp Martina SALAZAR Work Phone: Start: 12-28-2024 Urnls dip stick/tabl et rgnt non-auto w/o micrscp Ranjit Robb DO Work Phone: Start: 12-01-2024 ALL CBC WITH AUTO DIFF Ranjit Robb DO Work Phone: Start: 11-30-2024 Urnls dip stick/tabl et rgnt non-auto w/o micrscp Ranjit Robb DO Work Phone: Start: 11-09-2024 Urnls dip stick/tabl et rgnt non-auto w/o micrscp Ranjit Robb DO Work Phone: Start: 11-02-2024 RECURRENT VAGINITIS (HTRX) Ranjit Robb DO Work Phone: Start: 11-02-2024 Urnls dip stick/tabl et rgnt non-auto w/o micrscp Martina SALAZAR Work Phone: Start: 09-26-2024 Urnls dip stick/tabl et rgnt non-auto w/o micrscp Ranjit Robb DO Work Phone: Start: 08-31-2024 BOX TEST Ranjit Fazi o DO Work Phone: Start: 08-25-2024 End: 08-25-2024 Urnls dip stick/tablet rgnt non-auto w/o micrscp Ranjit Robb DO Work Phone: Myringotomy and antwan strickland of middle ear Wilfredo Villareal Plan of Treatment Date Care Activity Detail Author Start: 01-29-[address] [facility] Start: 04-03-2025 Influenza vaccination [facility] Start: 03-15-2025 End: 03-15-2025 Patient encounter procedure 03/15/2025 11:20 AM EDT Routine KEV MILLER [address] [place] [address] Ranjit Zamudio DO [address] [place] [address] KEV MILLER Start: 03-09-2025 End: 03-09-2025 Patient encounter procedure 03/09/2025 9:20 AM EDT Routine [facility] [address] [place] [id number] Martina Arrington PA [address] [place] [address] [facility] [place] [facility] Start: 03-02-2025 End: 03-02-2026 CULTURE, GROUP B STREP WITH SUSCEPTIBLITY CULTURE, GROUP B STREP WITH SUSCEPTIBLITY Lab Routine Third trimester ([facility]) Expected: 03/02/2025, Expires: 03/02/2026 [facility] Work Phone: Comment on above: Expected: 03/02/2025 , Expires: 03/02/2026 Start: 02-23-2025 End: 02-23-2025 Patient encounter procedure 02/23/2025 9:00 AM EDT Routine [facility] [address] [place] [phone] Ranjit Zamudio DO [address] [place], [place] [id number] [facility] Start: 02-21-2025 End: 02-21-2025 Patient encounter procedure 02/21/2025 1:00 PM EDT Office Visit MARTINA CONKLIN [address] [place] [phone] Peyton Quiroz NP [address] [place], [place] MARTINA CONKLIN Start: 02-16-2025 End: 02-16-2025 Patient encounter procedure 02/16/2025 11:40 AM EDT Routine [facility] [address] [place] [address] Martina Arrington, PA [address] [place], [place] [id number] [facility] Start: 02-16-2025 End: 02-16-2025 Professional / ancillary services management 02/16/2025 11:00 AM EDT Ancillary Procedure [facility] [address] [place] [id number] [facility] Start: 02-01-2025 End: 06-04-2025 US for US OB follow up transabdominal approach Imaging Routine size inconsistent with dates ([facility] Expected: 02/01/2025, Expires: 06/04/2025 [facility] Work Phone: Comment on above: Expected: 02/01/2025 , Expires: 06/04/2025 Start: 01-16-2025 End: 01-16-2025 Patient encounter procedure 01/16/2025 2:10 PM EDT Routine [facility] [address] [place] [id number] Ranjit Zamudio, DO [facility] [place] [address] [facility] Start: 12-28-2024 End: 12-28-2024 Patient encounter procedure 12/28/2024 2:30 PM EDT Routine [facility] [address] [place] [phone] Ranjit Zamudio, DO [facility] [place] [address] [facility] Start: 12-28-2024 End: 12-28-2024 Professional / ancillary services management 12/28/2024 2:00 PM EDT Ancillary Procedure [facility] [address] [place] [id number] [facility] Start: 11-30-2024 End: 11-30-2024 Patient encounter procedure [facility] Comment on above: Arrived Start: 11-30-2024 End: 11-30-2025 CBC panel - Blood by Automated count CBC Lab Routine Diabetes mellitus screening Expected: 11/30/2024 (Approximate), Expires: 11/30/2025 [facility] Comment on above: Expected: 11/30/2024 (Approximate), Expires: 11/30/2025 Start: 11-30-2024 End: 11-30-2025 Measurement of glucose 1 hour after glucose challenge for glucose tolerance test Glucose tolerance, 1 hour Lab Routine Diabetes mellitus screening Expected: 11/30/2024 (Approximate), Expires: 11/30/2025 [facility] Comment on above: Expected: 11/30/2024 (Approximate), Expires: 11/30/2025 Start: 11-30-2024 End: 03-01-2025 US for US OB limited 1+ fetuses Imaging Routine Encounter for follow-up ultrasound of anatomy Expected: 11/30/2024, Expires: 03/01/2025 [facility] Work Phone: Comment on above: Expected: 11/30/2024 , Expires: 03/01/2025 Start: 11-23-2024 End: 11-23-2024 Professional / ancillary services management 11/23/2024 10:00 AM EDT Ancillary Procedure [facility] [address] [facility] [place] [phone] [facility] Start: 11-09-2024 End: 11-09-2024 Patient encounter procedure 11/09/2024 1:00 PM EDT Routine [facility] [address] [facility] [place] [phone] Ranjit Zamudio DO [address] [place] [address] Arrived [facility] Comment on above: Arrived Start: 11-02-2024 End: 11-02-2024 Patient encounter procedure 11/02/2024 2:50 PM EDT Routine [facility] [address] [place] [address] Martina Arrington, PA [address] [place], [place] [id number] Arrived [facility] Comment on above: Arrived Start: 11-02-2024 End: 01-02-2025 Alpha fetoprotein, maternal Alpha fetoprotein, maternal Lab Routine 18 weeks gestation of Expected: 11/02/2024 (Approximate), Expires: 01/02/2025 [facility] Comment on above: Expected: 11/02/2024 (Approximate), Expires: 01/02/2025 Start: 11-02-2024 End: 11-02-2025 US for US OB 14+ weeks anatomy scan Imaging Routine Screening, , for anatomic survey Expected: 11/02/2024, Expires: 11/02/2025 [facility] Comment on above: Expected: 11/02/2024 , Expires: 11/02/2025 Start: 10-25-2024 End: 10-25-2024 Patient encounter procedure 10/25/2024 1:30 PM EDT Routine [facility] [address] [place] [address] Martina Arrington PA [address] [place] [address] [facility] Start: 09-26-2024 End: 09-26-2024 Patient encounter procedure [facility] Comment on above: Arrived Start: 08-25-2024 End: 08-25-2025 ABO/Rh ABO/Rh Lab Routine Missed menses , unspecified gestational age Expected: 08/25/2024 (Approximate), Expires: 08/25/2025 [facility] Comment on above: Expected: 08/25/2024 (Approximate), Expires: 08/25/2025 Start: 08-25-2024 End: 08-25-2025 Blood type and Indirect antibody screen panel - Blood Type and screen Lab Routine Missed menses , unspecified gestational age Expected: 08/25/2024 (Approximate), Expires: 08/25/2025 [facility] Work Phone: Comment on above: Expected: 08/25/2024 (Approximate), Expires: 08/25/2025 Start: 08-25-2024 End: 08-25-2025 Drugs of abuse panel - Urine by Screen method Rapid drug screen, urine Lab Routine , unspecified gestational age Encounter for supervision of normal first in first trimester Expected: 08/25/2024 (Approximate), Expires: 08/25/2025 [facility] Comment on above: Expected: 08/25/2024 (Approximate), Expires: 08/25/2025 Start: 08-25-2024 End: 08-25-2024 ambulatory 08/25/2024 1:30 PM EST Initial [facility] [address] [place] [address] [facility] Start: 08-25-2024 End: 08-25-2024 Professional / ancillary services management 08/25/2024 1:00 PM EST Ancillary Procedure [facility] [address] [facility] [place] [phone] [facility] Start: 08-11-2024 End: 08-11-2024 Patient encounter procedure 08/11/2024 4:20 PM EST Office Visit [facility] [address] [place] [address] Peyton Quiroz, ICT DEVELOPER [address] [place] Arrived [facility] Comment on above: Arrived Start: 04-03-2024 Influenza vaccination Influenza Vacc ine (#1) [facility] Start: 04-03-2023 COVID-19 VACCINE ( season) COVID-19 VACCINE ( season) [facility] Start: 03-13-[address] [facility] Start: 03-10-2023 Hospital admission [facility] Start: 03-10-[address] [facility] Start: 2020 Screening for Chlamy patricia trachomatis CHLAMYDIA SCREEN [facility] Start: 12-31-2019 HIV screening HIV SCREENING DISCUSSI ON [facility] Start: 2004 Hepatitis C screening HEPATITI S C VIRUS SCREENING [facility] Start: 2004 Screening for Chlamy patricia trachomatis GONORRHEA SCREEN [facility] Bacteria identified in Urine by Culture Urine culture Microbiology Routine Missed menses Ordered: 08/25/2024 [facility] Comment on above: Ordered: 08/25/2024 CBC W Auto Different ial panel - Blood CBC and differential Lab Routine Missed menses , unspecified gestational age Ordered: 08/25/2024 [facility] Comment on above: Ordered: 08/25/2024 CHLAMYDIA TRACHOMATI S (GENITO/STI) CHLAMYDIA TRACHOMATIS (GENITO/STI) Lab Routine Vaginal discharge STD exposure Ordered: 11/02/2024 [facility] Comment on above: Ordered: 11/02/2024 Hemoglobin A1c/Hemoglobin.total in Blood Hemoglobin A1c Lab Routine Missed menses , unspecified gestational age Ordered: 08/25/2024 [facility] Comment on above: Ordered: 08/25/2024 Hepatitis B virus surface Ag [Presence] in Serum or Plasma by Immunoassay Hepatitis B surface antigen Lab Routine Missed menses , unspecified gestational age Ordered: 08/25/2024 [facility] Comment on above: Ordered: 08/25/2024 Hepatitis C virus Ab [Presence] in Serum or Plasma by Immunoassay Hepatitis C antibody Lab Routine Missed menses , unspecified gestational age Ordered: 08/25/2024 [facility] Comment on above: Ordered: 08/25/2024 HIV-1/HIV-2 antigen/antibody combination immunoassay HIV-1 and HIV-2 antibodies Lab Routine Missed menses , unspecified gestational age Ordered: 08/25/2024 [facility] Comment on above: Ordered: 08/25/2024 Neisseria gonorrhoea e DNA [Presence] in Unspecified specimen by CHRISTIAN with probe detection Neisseria gonorrhea DNA probe, direct Lab Routine Vaginal discharge STD exposure Ordered: 11/02/2024 [facility] Comment on above: Ordered: 11/02/2024 Patient Education [facility] Work Phone: Patient referral [facility] Work Phone: Reagin Ab [Presence] in Serum by RPR RPR Lab Routine Missed menses , unspecified gestational age Ordered: 08/25/2024 [facility] Comment on above: Ordered: 08/25/2024 Rubella antibody, IgG Rubella an tibody, IgG Lab Routine Missed menses , unspecified gestational age Ordered: 08/25/2024 [facility] Comment on above: Ordered: 08/25/2024 SURESWAB(R) ADVANCED VAGINITIS PLUS, TMA SURESWAB(R) ADVANCED VAGINITIS PLUS, TMA Pathology and Cytology Routine Vaginal discharge STD exposure Ordered: 11/02/2024 [facility] Work Phone: Comment on above: Ordered: 11/02/2024 Immunizations Immunization Date Immunization Notes Care Provider Fa tyron 05-06-2023 influenza virus vaccine, unspecified formulation Zenon Hernandez [facility] 10-03-2022 SARS-CoV-2 (COVID-19 ) [id number] Orlando Paster [facility] 07-31-2022 meningococcal B vaccine, fully recombinant Orlando Paster [facility] 07-31-2022 SARS-CoV-2 (COVID-19 ) mRNA-1273 vaccine Orlando Paster [facility] 07-01-2022 influenza virus vaccine, unspecified formulation Orlando Paster [facility] 07-01-2022 meningococcal ACWY vaccine, unspecified formulation Orlando Paster [facility] 07-01-2022 meningococcal B vaccine, fully recombinant Orlando Paster [facility] 07-01-2022 SARS-CoV-2 (COVID-19 ) mRNA-1273 vaccine Orlando Paster [facility] 08-09-2019 HPV, unspecified formulation Orlando Paster [facility] 08-09-2019 influenza virus vaccine, unspecified formulation Orlando Paster [facility] 01-28-2018 meningococcal ACWY vaccine, unspecified formulation Orlando Paster [facility] 01-28-2018 tetanus toxoid, redu elisabeth diphtheria toxoid, and acellular pertussis vaccine, adsorbed Orlando Paster [facility] 01-26-2018 HPV, unspecified formulation Orlando Paster [facility] 07-21-2011 hepatitis A vaccine, unspecified formulation Orlando Paster [facility] 07-21-2011 influenza virus vaccine, live, attenuated, for intranasal use Zenon Vizcainowei [facility] 01-16-2011 Diphtheria, tetanus toxoids and acellular pertussis vaccine, and poliovirus vaccine, inactivated Orlando Paster [facility] 01-16-2011 hepatitis A vaccine, unspecified formulation Orlando Paster [facility] 01-16-2011 measles, mumps, rubella, and varicella virus vaccine Orlando Paster [facility] 04-20-2006 diphtheria, tetanus toxoids and acellular pertussis vaccine Orlando Paster [facility] 04-20-2006 varicella virus vaccine Will alexis Paster [facility] 01-28-2006 Hib, unspecified formulation Orlando Paster [facility] 01-28-2006 measles, mumps and rubella virus vaccine Orlando Paster [facility] 07-23-2005 DTaP-hepatitis B and poliovirus vaccine Orlando Paster [facility] 07-23-2005 haemophilus influenz ae type b vaccine, PRP-T conjugate Orlando Paster [facility] 05-28-2005 DTaP-hepatitis B and poliovirus vaccine Orlando Paster [facility] 05-28-2005 haemophilus influenz ae type b vaccine, PRP-T conjugate Orlando Pastedivya [facility] 03-27-2005 DTaP-hepatitis B and poliovirus vaccine Orlando Paster [facility] 03-27-2005 haemophilus influenz ae type b vaccine, PRP-T conjugate Orlando Paster [facility] 2004 hepatitis B vaccine, pediatric or pediatric/adolescent dosage Orlando Paster [facility] Payers Date Payer Category Payer Private Health Insurance [facility]ICA[facility] [id number] 2023 Unknown [id number]. [id number] 2022 Self-pay [id number] 2004 Unknown [id number] 2.16.840.1.123746.3.579.2. 479 2004 Unknown [id number] 2.16.840.1.721132.3.579.2. 983 2004 Unknown [id number] 2.16.840.1.881799.3.579.2. 727 2004 Unknown [id number] 2.16.840.1.613748.3.579.2. 2004 Unknown [id number] 2.16.840.1.720824.3.579.2 2004 Unknown [id number] 2.16.840.1.372995.3.579.2 2004 Unknown [id number] 2.16.840.1.240880.3.579.2 2004 Unknown [id number] 2.16.840.1.820310.3.579.2 2004 Unknown [id number] 2.16.840.1.349340.3.579. 2004 Unknown [id number] 2.16.840.1.891115.3.579. 2004 Unknown [id number] 2.16840.1.045798.3.579. 2004 Unknown [id number] 2.16.840.1.426334.3.579. 2004 Unknown [id number] 2.16.840.1.643615.3.579. 2004 Unknown [id number] 2.16.840.1.412679.3.579.2 2004 Unknown [id number] 2.16.840.1.528372.3.579.2 2004 Unknown [id number] 2.16.840.1.774615.3.579.2 2004 Unknown [id number] 2.16.840.1.665325.3.579.2 2004 Unknown [id number] 2.16.840.1.769666.3.579.2 2004 Unknown [id number] 2.16.840.1.346219.3.579.2 2004 Unknown [id number] 2.16.840.1.123907.3.579.2. 2004 Unknown [id number] 2.16.840.1.466820.3.579.2 2004 Unknown [id number] 2.16.840.1.154594.3.579.2 2004 Unknown [id number] 2.16.840.1.402102.3.579.2 2004 Unknown [id number] 2.16.840.1.857067.3.579.2 2004 Unknown [id number] 2.16.840.1.700633.3.579.2 2004 Unknown [id number] 2.16.840.1.880547.3.579.2 2004 Unknown [id number] 2.16840.1.691820.3.579.2 2004 Unknown [id number] 2.16840.1.122559.3.579.2 2004 Unknown [id number] 2.16840.1.007720.3.579.2 2004 Unknown [id number] 2.16.840.1.113043.3.579.2 2004 Unknown [id number] 2.16840.1.234969.3.579.2 2004 Unknown [id number] 2.16.840.1.617168.3.579.2 2004 Unknown [id number] 2.16.840.1.165648.3.579.2 2004 Unknown [id number] 2.16.840.1.768286.3.579.2 2004 Unknown [id number] 2.16.840.1.859103.3.579.2 2004 Unknown [id number] 2.16.840.1.041594.3.579.2. 1258 2004 Unknown [id number] 2.16.840.1.080192.3.579.2. 1258 2004 Unknown [id number] 2.16.840.1.142841.3.579.2. 1258 2004 Unknown [id number] 2.16.840.1.311779.3.579.2. 1258 2004 Unknown [id number] 2.16.840.1.293515.3.579.2. 1258 2004 Unknown [id number] 2.16840.1.353198.3.579.2. 1258 2004 Unknown [id number] 2.16840.1.883345.3.579.2. 1258 2004 Unknown [id number] 2.16840.1.615416.3.579.2. 1258 2004 Unknown [id number] 2.16840.1.044039.3.579.2. 1258 2004 Unknown [id number] 2.16840.1.176805.3.579.2. 1258 2004 Unknown [id number] 2.16840.1.884438.3.579.2. 1258 2004 Unknown [id number] 2.16840.1.690537.3.579.2. 1258 2004 Unknown [id number] 2.16840.1.296481.3.579.2. 1258 2004 Unknown [id number] 2.16840.1.580406.3.579.2. 1258 2004 Unknown [id number] 2.16840.1.570689.3.579.2. 1258 2004 Unknown [id number] 2.16840.1.889490.3.579.2. 1258 2004 Unknown [id number] 2.16.840.1.242650.3.579.2. 1259 1979 Unknown [id number] 2.16.840.1.877135.3.579.2. 356 1979 Unknown [id number] 2.16.840.1.694710.3.579.2. 356 1979 Unknown [id number] 2.16.840.1.741734.3.579.2. 356 1979 Unknown [id number] 2.16.840.1.966071.3.579.2. 356 1979 Unknown [id number] 2.16.840.1.607229.3.579.2. 593 1979 Unknown [id number] 2.16.840.1.979713.3.579.2. 593 1979 Unknown [id number] 2.16.840.1.423534.3.579.2. 593 1979 Unknown [id number] 2.16.840.1.244890.3.579.2. 593 1979 Unknown [id number] 2.16.840.1.687139.3.579.2. 593 1979 Unknown [id number] 2.16.840.1.865081.3.579.2. 593 1979 Unknown [id number] 2.16.840.1.145220.3.579.2. 593 1979 Unknown [id number] 2.16.840.1.198165.3.579.2. 593 1979 Unknown [id number] 2.16.840.1.574566.3.579.2. 593 1979 Unknown [id number] 2.16.840.1.119320.3.579.2. 593 1979 Unknown [id number] 2.16.840.1.277308.3.579.2. 593 1979 Unknown [id number] 2.16.840.1.518637.3.579.2. 593 1979 Unknown [id number] 2.16.840.1.918790.3.579.2. 593 1979 Unknown [id number] 2.16.840.1.362981.3.579.2. 593 1979 Unknown [id number] 2.16.840.1.442640.3.579.2. 593 1979 Unknown [id number] 2.16.840.1.272473.3.579.2. 593 1979 Unknown [id number] 2.16.840.1.839355.3.579.2. 593 1979 Unknown [id number] 2.16.840.1.027327.3.579.2. 593 1979 Unknown [id number] 2.16.840.1.586598.3.579.2. 479 1979 Unknown [id number] 2.16.840.1.460311.3.579.2. 479 1979 Unknown [id number] 2.16.840.1.104461.3.579.2. 479 1979 Unknown [id number] 2.16.840.1.909776.3.579.2. 479 1979 Unknown [id number] 2.16.840.1.924158.3.579.2. 479 1959 Unknown [id number] 1959 Unknown [id number] Unknown [id number] 2.16.840.1.107424.3.579.2. 531 Unknown [id number] 2.16.840.1.967417.3.579.2. 531 Social History Date Type Detail Facility Start: 12-04-2021 End: 03-01-2024 Tobacco smoking status Never smoked tobacco (finding) [facility] Start: 06-30-2023 End: 08-11-2024 Sex Assigned At Female [facility] Comment on above: denies Denies. Tobacco smoking status [facility] Start: 2004 Sex Assigned At Female F [facility] Start: 06-30-2023 Tobacco smoking stat [facility] Occasional tobacco smoker [facility] Start: 06-30-2023 End: 08-11-2024 History of Social function [facility] Start: 06-30-2023 Tobacco Comment vape [facility] Start: 2004 Sex Assigned At Not on file [facility] Start: 03-01-2024 Tobacco use and exposure Smokeless tobacco non-user [facility] Start: 08-11-2024 End: 03-09-2025 Alcoholic beverage intake Lifetime non-drinker (finding) [facility] Start: 02-03-2024 Alcohol Comment caffeine: 1-2 cups per day [facility] Start: 07-07-[address] [facility] Start: 09-09-2024 Tobacco smoking stat [facility] Ex-smoker (finding) [facility] Start: 11-14-2009 End: 09-09-2024 Sex Female (finding) [facility] Goals Date Patient Goal Desired Activity /State Functional Status Date Assessment Result Facility 11-08-2024 Functional Status N/A [facility] 08-21-2024 Functional Status N/A [facility] 06-26-2024 Functional Status N/A [facility] 05-22-2024 Functional Status N/A [facility] 04-25-2024 Functional Status N/A [facility] 04-14-2024 Functional Status N/A [facility] 04-10-2024 Functional Status N/A [facility] 03-14-2024 Functional Status N/A [facility] 01-22-2024 Functional Status N/A [facility] 01-13-2024 Functional Status N/A [facility] 01-12-2024 Functional Status N/A [facility] 05-11-2023 Functional Status N/A [facility] 03-16-2023 Functional Status N/A [facility] 03-13-2023 Functional status Patient at [facility] Work Phone: 03-07-2023 Functional Status N/A [facility] 03-07-2023 Functional Status [facility] 11-13-2022 Functional Status N/A [facility] 10-10-2022 Functional Status N/A [facility] 10-05-2022 Functional Status N/A [facility] 07-08-2022 Functional Status N/A [facility] 07-04-2022 Functional Status N/A [facility] 07-02-2022 Functional Status N/A [facility] Mental Status Date Assessment Result Facility 03-13-2023 Cognitive function Cognitive Sta tus Patient at [facility] Work Phone: Clinical Notes 07-02-2022 to 03-09-2025 MARIE Flores - 03/09/2025 9:20 AM MARIE Samuel - 03/02/2025 10:50 AM Rnoal Rivera CLINICAL PROJECT COORDINATOR - 02/23/2025 9:00 AM MARIE Samuel - 02/16/2025 11:40 AM Nader Larkin CLINICAL PROJECT COORDINATOR - 02/01/2025 1:30 PM EDT Note Date & Type Note Facility 03-09-2025 History of Present illness Narrative Reason for Appointment: Patient ID: Rose Mary Schneider is a 19 y.o. female who presents [...] Vitals: Estimated body mass index is 41 kg/m as calculated from the following: Height as of 08/11/24: 5' 6 . Weight as of 03/02/25: 254 lb. BP: Patient's last menstrual period was 06/23/2024. ASSESSMENT & PLAN ICD-10-CM 1. Third trimester ([facility]) Z34.93 2. 36 weeks gestation of ([facility]) Z3A.36 Return OB: Patient presents today for [...] of: MARIE Flores documented in this encounter [facility] 03-02-2025 History of Present illness Narrative Reason for Appointment: Patient ID: Rose Mary Schneider is a 19 y.o. female who presents [...] Past Medical History: Diagnosis Date Anxiety Asthma ([facility]) Depression DMDD (disruptive mood dysregulation disorder) ([facility]) History of being hospitalized 2020 HISTORY PAST MEDICAL HISTORY SOCIAL HISTORY Past Medical History: Diagnosis Date Anxiety Asthma ([facility]) Depression DMDD (disruptive mood dysregulation disorder) ([facility]) History of being hospitalized 2020 seizure Social [...] nursing note reviewed. Exam conducted with a line installation supervisor present. Vitals: Estimated body mass index is 40.74 kg/m as calculated from the following: Height as of 08/11/24: 5' 6 . Weight as of 02/23/25: 252 lb 6.4 oz. BP: Patient's last menstrual period was 06/23/2024. ASSESSMENT & PLAN ICD-10-CM 1. Third trimester ([facility]) Z34.93 POCT urinalysis dipstick manually resulted CULTURE, GROUP B STREP WITH SUSCEPTIBLITY CULTURE, GROUP B STREP WITH SUSCEPTIBLITY 2. 36 weeks gestation of ([facility]) Z3A.36 Patient is doing well but has [...] of: MARIE Flores documented in this encounter [facility] 02-23-2025 History of Present illness Narrative Reason for Appointment: Patient ID: Rose Mary Schneider is a 19 y.o. female who presents for Routine Visit Patient presents today for Return OB appointment. MEDICATIONS Current Outpatient Medications Medication Instructions acetaminophen-codeine (Tylenol w/ Codeine #3) 300-30 MG tablet 1 tablet, Every 6 hours PRN lurasidone (LATUDA) 20 [...] Past Medical History: Diagnosis Date Anxiety Asthma ([facility]) Depression DMDD (disruptive mood dysregulation disorder) ([facility]) History of being hospitalized 2020 HISTORY PAST MEDICAL HISTORY SOCIAL HISTORY Past Medical History: Diagnosis Date Anxiety Asthma ([facility]) Depression DMDD (disruptive mood dysregulation disorder) ([facility]) History of being hospitalized 2020 seizure Social History Tobacco Use Smoking status: Never Smokeless tobacco: Never Substance Use Topics Alcohol use: Never Comment: caffeine: 1-2 cups per day Drug use: Never FAMILY HISTORY Family History Problem Relation Name Age of Onset Allergies Mother Depression Mother Migraines Mother ADD / ADHD Father Allergies Father Allergies Sibling Depression Sibling SURGICAL HISTORY No past surgical history on file. REVIEW OF SYSTEMS Review of Systems: Review of Systems Constitutional: Negative. HENT: Negative. Eyes: Negative. Respiratory: Negative. Cardiovascular: Negative. Gastrointestinal: Negative. Genitourinary: Negative. Musculoskeletal: Negative. Skin: Negative. Neurological: Negative. All other systems reviewed and are negative. Hematological: Negative. Endocrine: Negative. Allergic/Immunologic: Negative. OBJECTIVE Objective: Physical Exam Constitutional: Appearance: Normal appearance. She is well-developed. Cardiovascular: Rate and Rhythm: Normal rate and regular rhythm. Pulmonary: Effort: Pulmonary effort is normal. Breath sounds: Normal breath sounds. Abdominal: General: Bowel sounds are normal. There is no distension. Palpations: Abdomen is soft. Tenderness: There is no abdominal tenderness. There is no guarding or rebound. Musculoskeletal: General: No swelling. Normal range of motion. Right lower leg: No edema. Left lower leg: No edema. Neurological: Mental Status: She is alert and oriented to person, place, and time. Skin: General: Skin is warm and dry. Psychiatric: Mood and Affect: Mood normal. Behavior: Behavior normal. Vitals and nursing note reviewed. Exam conducted with a line installation supervisor present. Vitals: Estimated body mass index is 40.74 kg/m as calculated from the following: Height as of 08/11/24: 5' 6 . Weight as of this encounter: 252 lb 6.4 oz. BP: 118/72 Patient's last menstrual period was 06/23/2024. ASSESSMENT & PLAN ICD-10-CM 1. Stomach pain R10.9 2. Third trimester ([facility]) Z34.93 POCT urinalysis dipstick manually resulted 3. 35 weeks gestation of ([facility]) Z3A.35 Patient presents today for a routine obstetrics appointment. Patient is currently 35w0d with a Estimated Date of Delivery: 03/30/25. Patient still complaints of abdominal pain. Patient to return to clinic in 1 week for GBS and routine OB. Documented by Deneen Rivera LPN on behalf of: Ranjit Zamudio DO documented in this encounter [facility] 02-16-2025 History of Present illness Narrative Reason for Appointment: Patient ID: Rose Mary Schneider is a 19 y.o. female who presents for Routine Visit Patient presents today for Return OB appointment. MEDICATIONS Current Outpatient Medications Medication Instructions acetaminophen-codeine (Tylenol w/ Codeine #3) 300-30 MG tablet 1 tablet, Every 6 hours PRN lurasidone (LATUDA) 20 [...] (HCC) Depression DMDD (disruptive mood dysregulation disorder) ([facility]) History of being hospitalized 2020 HISTORY PAST MEDICAL HISTORY SOCIAL HISTORY Past Medical History: Diagnosis Date Anxiety Asthma (HCC) Depression DMDD (disruptive mood dysregulation disorder) ([facility]) History of being hospitalized 2020 seizure Social History Tobacco Use Smoking status: Never Smokeless tobacco: Never Substance Use Topics Alcohol use: Never Comment: caffeine: 1-2 cups per day Drug use: Never FAMILY HISTORY Family History Problem Relation Name Age of Onset Allergies Mother Depression Mother Migraines Mother ADD / ADHD Father Allergies Father Allergies Sibling Depression Sibling SURGICAL HISTORY No past surgical history on file. REVIEW OF SYSTEMS Review of Systems: Review of Systems Constitutional: Negative. HENT: Negative. Eyes: Negative. Respiratory: Negative. Cardiovascular: Negative. Gastrointestinal: Negative. Genitourinary: Negative. Musculoskeletal: Negative. Skin: Negative. Neurological: Negative. All other systems reviewed and are negative. Hematological: Negative. Endocrine: Negative. Allergic/Immunologic: Negative. OBJECTIVE Objective: Physical Exam Constitutional: Appearance: Normal appearance. She is normal weight. HENT: Head: Normocephalic. Cardiovascular: Rate and Rhythm: Normal rate. Pulses: Normal pulses. Pulmonary: Effort: Pulmonary effort is normal. Breath sounds: Normal breath sounds. Abdominal: Palpations: Abdomen is soft. Musculoskeletal: General: Normal range of motion. Neurological: General: No focal deficit present. Mental Status: She is alert and oriented to person, place, and time. Psychiatric: Mood and Affect: Mood normal. Behavior: Behavior normal. Thought Content: Thought content normal. Judgment: Judgment normal. Vitals and nursing note reviewed. Vitals: Estimated body mass index is 39.62 kg/m as calculated from the following: Height as of 08/11/24: 5' 6 . Weight as of 02/01/25: 245 lb 8 oz. BP: Patient's last menstrual period was 06/23/2024. ASSESSMENT & PLAN ICD-10-CM 1. Third trimester ([facility]) Z34.93 POCT urinalysis dipstick manually resulted 2. 34 weeks gestation of ([facility]) Z3A.34 Return OB: Patient presents today for a routine obstetrics appointment. Patient is currently 34w0d . Patient states she is doing well but has complaints of being tired due to current . Patient has verbalizes frequent movement. labor precautions was discussed/given and patient was instructed to perform kick counts three times a day. Orders Placed This Encounter Procedures POCT urinalysis dipstick manually resulted Follow Up: Patient is to return to office in 1 week for routine OB appointment. documented in this encounter [facility] 02-01-2025 History of Present illness Narrative Reason for Appointment: Patient ID: Rose Mary Schneider is a 19 y.o. female who presents for Routine Visit Patient presents today for Return OB appointment. MEDICATIONS Current Outpatient Medications Medication Instructions acetaminophen-codeine (Tylenol w/ Codeine #3) 300-30 MG tablet 1 tablet, Every 6 hours PRN lurasidone (LATUDA) 20 [...] (HCC) Depression DMDD (disruptive mood dysregulation disorder) ([facility]) History of being hospitalized 2020 HISTORY PAST MEDICAL HISTORY SOCIAL HISTORY Past Medical History: Diagnosis Date Anxiety Asthma (HCC) Depression DMDD (disruptive mood dysregulation disorder) ([facility]) History of being hospitalized 2020 seizure Social History Tobacco Use Smoking status: Never Smokeless tobacco: Never Substance Use Topics Alcohol use: Never Comment: caffeine: 1-2 cups per day Drug use: Never FAMILY HISTORY Family History Problem Relation Name Age of Onset Allergies Mother Depression Mother Migraines Mother ADD / ADHD Father Allergies Father Allergies Sibling Depression Sibling SURGICAL HISTORY No past surgical history on file. REVIEW OF SYSTEMS Review of Systems: Review of Systems Constitutional: Negative. HENT: Negative. Eyes: Negative. Respiratory: Negative. Cardiovascular: Negative. Gastrointestinal: Negative. Genitourinary: Negative. Musculoskeletal: Negative. Skin: Negative. Neurological: Negative. All other systems reviewed and are negative. Hematological: Negative. Endocrine: Negative. Allergic/Immunologic: Negative. OBJECTIVE Objective: Physical Exam Constitutional: Appearance: Normal appearance. She is well-developed. Cardiovascular: Rate and Rhythm: Normal rate and regular rhythm. Pulmonary: Effort: Pulmonary effort is normal. Breath sounds: Normal breath sounds. Abdominal: General: Bowel sounds are normal. There is no distension. Palpations: Abdomen is soft. Tenderness: There is no abdominal tenderness. There is no guarding or rebound. Musculoskeletal: General: No swelling. Normal range of motion. Right lower leg: No edema. Left lower leg: No edema. Neurological: Mental Status: She is alert and oriented to person, place, and time. Skin: General: Skin is warm and dry. Psychiatric: Mood and Affect: Mood normal. Behavior: Behavior normal. Vitals and nursing note reviewed. Exam conducted with a line installation supervisor present. Vitals: Estimated body mass index is 39.62 kg/m as calculated from the following: Height as of 08/11/24: 5' 6 . Weight as of this encounter: 245 lb 8 oz. BP: 120/80 Patient's last menstrual period was 06/23/2024. ASSESSMENT & PLAN ICD-10-CM 1. Third trimester ([facility]) Z34.93 POCT urinalysis dipstick manually resulted 2. 32 weeks gestation of ([facility]) Z3A.32 Return OB: Patient presents today for a routine obstetrics appointment. Patient is currently 31w6d . Patient states she is doing well but has complaints of being tired due to current . Patient has verbalizes frequent movement. labor precautions was discussed/given and patient was instructed to perform kick counts three times a day. Pt having decreased appetite. Pt advised to drink protein shakes. Pt voiced understanding. Orders Placed This Encounter Procedures POCT urinalysis dipstick manually resulted Follow Up: Patient is to return to office in 2 week for routine OB appointment. Documented by Kaila Larkin LPN on behalf of: Ranjit Zamudio DO documented in this encounter [facility] 01-18-2025 History of Present illness Narrative Reason for Appointment: Patient ID: Rose Mary Schneider is a 19 y.o. female who presents for Routine Visit Patient presents today for Return OB appointment. MEDICATIONS Current Outpatient Medications Medication Instructions acetaminophen-codeine (Tylenol w/ Codeine #3) 300-30 MG tablet 1 tablet, Every 6 hours PRN lurasidone (LATUDA) 20 [...] Father Allergies Sibling Depression Sibling SURGICAL HISTORY No past surgical history on file. REVIEW OF SYSTEMS Review of Systems: Review of Systems Constitutional: Negative. HENT: Negative. Eyes: Negative. Respiratory: Negative. Cardiovascular: Negative. Gastrointestinal: Negative. Genitourinary: Negative. Musculoskeletal: Negative. Skin: Negative. Neurological: Negative. All other systems reviewed and are negative. Hematological: Negative. Endocrine: Negative. Allergic/Immunologic: Negative. OBJECTIVE Objective: Physical Exam Constitutional: Appearance: Normal appearance. She is well-developed. Cardiovascular: Rate and Rhythm: Normal rate and regular rhythm. Pulmonary: Effort: Pulmonary effort is normal. Breath sounds: Normal breath sounds. Abdominal: General: Bowel sounds are normal. There is no distension. Palpations: Abdomen is soft. Tenderness: There is no abdominal tenderness. There is no guarding or rebound. Musculoskeletal: General: No swelling. Normal range of motion. Right lower leg: No edema. Left lower leg: No edema. Neurological: Mental Status: She is alert and oriented to person, place, and time. Skin: General: Skin is warm and dry. Psychiatric: Mood and Affect: Mood normal. Behavior: Behavior normal. Vitals and nursing note reviewed. Exam conducted with a line installation supervisor present. Vitals: Estimated body mass index is 39.77 kg/m as calculated from the following: Height as of 08/11/24: 5' 6 . Weight as of this encounter: 246 lb 6 oz. BP: 110/76 Patient's last menstrual period was 06/23/2024. ASSESSMENT & PLAN ICD-10-CM 1. Third trimester ([facility]) Z34.93 POCT urinalysis dipstick manually resulted 2. 29 weeks gestation of ([facility]) Z3A.29 Return OB: Patient presents today for a routine obstetrics appointment. Patient is currently 29w6d . Patient states she is doing well but has complaints of being tired due to current . Patient has verbalizes frequent movement. labor precautions was discussed/given and patient was instructed to perform kick counts three times a day. Orders Placed This Encounter Procedures POCT urinalysis dipstick manually resulted Follow Up: Patient is to return to office in 2 week for routine OB appointment. Documented by Neeta Garrido NP on behalf of: Neeta Garrido NP documented in this encounter [facility] 12-28-2024 History of Present illness Narrative Reason for Appointment: Patient ID: Rose Mary Schneider is a 18 y.o. female who presents for Routine Visit Patient presents today for Return OB appointment. MEDICATIONS Current Outpatient Medications Medication Instructions acetaminophen-codeine (Tylenol w/ Codeine #3) 300-30 MG tablet 1 tablet, Every 6 hours PRN lurasidone (LATUDA) 20 [...] Ambulatory Problems Diagnosis Date Noted Mood disorder ([facility]) 02/03/2024 Altered mental status 02/03/2024 Psychogenic nonepileptic seizure 02/03/2024 Resolved Ambulatory Problems Diagnosis Date Noted No Resolved Ambulatory Problems Past Medical History: Diagnosis Date Anxiety Asthma Depression ([facility]) DMDD (disruptive mood dysregulation disorder) ([facility]) History of being hospitalized 2020 HISTORY PAST MEDICAL HISTORY SOCIAL HISTORY Past Medical History: Diagnosis Date Anxiety Asthma Depression ([facility]) DMDD (disruptive mood dysregulation disorder) ([facility]) History of being hospitalized 2020 seizure Social History Tobacco Use Smoking status: Never Smokeless tobacco: Never Substance Use Topics Alcohol use: Never Comment: caffeine: 1-2 cups per day Drug use: Never FAMILY HISTORY Family History Problem Relation Name Age of Onset Allergies Mother Depression Mother Migraines Mother ADD / ADHD Father Allergies Father Allergies Sibling Depression Sibling SURGICAL HISTORY No past surgical history on file. REVIEW OF SYSTEMS Review of Systems: Review of Systems Constitutional: Negative. HENT: Negative. Eyes: Negative. Breasts: Complaints of pain to left breast with redness Respiratory: Negative. Cardiovascular: Negative. Gastrointestinal: Negative. Genitourinary: Negative. Musculoskeletal: Negative. Skin: Negative. Neurological: Negative. All other systems reviewed and are negative. Hematological: Negative. Endocrine: Negative. Allergic/Immunologic: Negative. OBJECTIVE Objective: Physical Exam Constitutional: Appearance: Normal appearance. She is well-developed. Genitourinary: Vulva normal. Genitourinary Comments: Phlebitis to left breast 1 cm X 1.5 cm Cardiovascular: Rate and Rhythm: Normal rate and regular rhythm. Pulmonary: Effort: Pulmonary effort is normal. Breath sounds: Normal breath sounds. Chest: Abdominal: General: Bowel sounds are normal. There is no distension. Palpations: Abdomen is soft. Tenderness: There is no abdominal tenderness. There is no guarding or rebound. Musculoskeletal: General: No swelling. Normal range of motion. Right lower leg: No edema. Left lower leg: No edema. Neurological: Mental Status: She is alert and oriented to person, place, and time. Skin: General: Skin is warm and dry. Psychiatric: Mood and Affect: Mood normal. Behavior: Behavior normal. Vitals and nursing note reviewed. Exam conducted with a line installation supervisor present. Vitals: Estimated body mass index is 39.87 kg/m as calculated from the following: Height as of 08/11/24: 5' 6 . Weight as of this encounter: 247 lb. BP: 108/80 Patient's last menstrual period was 06/23/2024. ASSESSMENT & PLAN ICD-10-CM 1. Second trimester Z34.92 POCT urinalysis dipstick manually resulted 2. 26 weeks gestation of Z3A.26 Return OB: Patient presents today for a routine obstetrics appointment. Patient is currently 26w6d . Patient states she is doing well but has complaints of being tired due to current . Patient has verbalizes frequent movement. labor precautions was discussed/given and patient was instructed to perform kick counts three times a day. Orders Placed This Encounter Procedures POCT urinalysis dipstick manually resulted Follow Up: Patient is to return to office in 3 week for routine OB appointment. Phlebitis to left breast, mild erythema and tender to touch. Keflex prescription sent to pharmacy. Patient is gaining weight and no longer vomiting. Discontinued Zofran pump Documented by Neeta Garrido NP on behalf of: Ranjit Zamudio DO documented in this encounter [facility] 11-30-2024 History of Present illness Narrative Reason for Appointment: Patient ID: Rose Mary Schneider is a 18 y.o. female who presents for Routine Visit Patient presents today for Return OB appointment. MEDICATIONS Current Outpatient Medications Medication Instructions acetaminophen-codeine (Tylenol w/ Codeine #3) 300-30 MG tablet 1 tablet, Every 6 hours PRN lurasidone (LATUDA) 20 mg, Daily with evening meal ondansetron ODT (ZOFRAN-ODT) 4 mg, Oral, Every 6 hours PRN pantoprazole (PROTONIX) 40 mg, Daily before breakfast MV-Min-Fe Fum-FA-DHA ( 1 PO) 1 each, Daily promethazine (PHENERGAN) 12.5 mg, Oral, Every 6 hours PRN, Take 1 tablet by mouth every 6 hours as needed for nausea. ALLERGIES No Known Allergies PROBLEMS Active Ambulatory Problems Diagnosis Date Noted Mood disorder ([facility]) 02/03/2024 Altered mental status 02/03/2024 Psychogenic nonepileptic seizure 02/03/2024 Resolved Ambulatory Problems Diagnosis Date Noted No Resolved Ambulatory Problems Past Medical History: Diagnosis Date Anxiety Asthma Depression ([facility]) DMDD (disruptive mood dysregulation disorder) ([facility]) History of being hospitalized 2020 HISTORY PAST MEDICAL HISTORY SOCIAL HISTORY Past Medical History: Diagnosis Date Anxiety Asthma Depression ([facility]) DMDD (disruptive mood dysregulation disorder) ([facility]) History of being hospitalized 2020 seizure Social [...] Objective: Physical Exam Constitutional: Appearance: Normal appearance. She is well-developed. Cardiovascular: Rate and Rhythm: Normal rate and regular rhythm. Pulmonary: Effort: Pulmonary effort is normal. Breath sounds: Normal breath sounds. Abdominal: General: Bowel sounds are normal. There is no distension. Palpations: Abdomen is soft. Tenderness: There is no abdominal tenderness. There is no guarding or rebound. Musculoskeletal: General: No swelling. Normal range of motion. Right lower leg: No edema. Left lower leg: No edema. Neurological: Mental Status: She is alert and oriented to person, place, and time. Skin: General: Skin is warm and dry. Psychiatric: Mood and Affect: Mood normal. Behavior: Behavior normal. Vitals and nursing note reviewed. Exam conducted with a line installation supervisor present. Vitals: Estimated body mass index is 39.09 kg/m as calculated from the following: Height as of 08/11/24: 5' 6 . Weight as of this encounter: 242 lb 3.2 oz. BP: 100/70 Patient's last menstrual period was 06/23/2024. ASSESSMENT & PLAN ICD-10-CM 1. 22 weeks gestation of Z3A.22 POCT urinalysis dipstick manually resulted 2. Second trimester Z34.92 POCT urinalysis dipstick manually resulted 3. Encounter for follow-up ultrasound of anatomy Z36.2 US OB limited 1+ fetuses 4. Diabetes mellitus screening Z13.1 CBC Glucose tolerance, 1 hour CBC Glucose tolerance, 1 hour Patient presents today for a routine obstetrics appointment. Patient is currently 22w6d with a Estimated Date of Delivery: 03/30/25. Pt given glucola order and repeat ultrasound to have done in 4 weeks. Pt to return in 4 weeks for scheduled OB appt Documented by Kaila Larkin LPN on behalf of: Ranjit Zamudio DO documented in this encounter [facility] 11-09-2024 History of Present illness Narrative Reason for Appointment: Patient ID: Rose Mary Schneider is a 18 y.o. female who presents for ER Follow-up (Stomach cramping and pain) Patient presents today for Return OB appointment. MEDICATIONS Current Outpatient Medications Medication Instructions lurasidone (LATUDA) 20 mg, Daily with evening meal metroNIDAZOLE (FLAGYL) 500 mg, Oral, 2 times daily, Do not drink alcohol while taking this medication ondansetron ODT (ZOFRAN-ODT) 4 mg, Every 6 hours PRN MV-Min-Fe Fum-FA-DHA ( 1 PO) 1 each, Daily promethazine (PHENERGAN) 12.5 mg, Oral, Every 6 hours PRN, Take 1 tablet by mouth every 6 hours as needed for nausea. ALLERGIES No Known Allergies PROBLEMS Active Ambulatory Problems Diagnosis Date Noted Mood disorder ([facility]) 02/03/2024 Altered mental status 02/03/2024 Psychogenic nonepileptic seizure 02/03/2024 Resolved Ambulatory Problems Diagnosis Date Noted No Resolved Ambulatory Problems Past Medical History: Diagnosis Date Anxiety Asthma Depression ([facility]) DMDD (disruptive mood dysregulation disorder) ([facility]) History of being hospitalized 2020 HISTORY PAST MEDICAL HISTORY SOCIAL HISTORY Past Medical History: Diagnosis Date Anxiety Asthma Depression ([facility]) DMDD (disruptive mood dysregulation disorder) ([facility]) History of being hospitalized 2020 seizure Social [...] Objective: Physical Exam Constitutional: Appearance: Normal appearance. She is well-developed. Cardiovascular: Rate and Rhythm: Normal rate and regular rhythm. Pulmonary: Effort: Pulmonary effort is normal. Breath sounds: Normal breath sounds. Abdominal: General: Bowel sounds are normal. There is no distension. Palpations: Abdomen is soft. Tenderness: There is no abdominal tenderness. There is no guarding or rebound. Musculoskeletal: General: No swelling. Normal range of motion. Right lower leg: No edema. Left lower leg: No edema. Neurological: Mental Status: She is alert and oriented to person, place, and time. Skin: General: Skin is warm and dry. Psychiatric: Mood and Affect: Mood normal. Behavior: Behavior normal. Vitals and nursing note reviewed. Exam conducted with a line installation supervisor present. Vitals: Estimated body mass index is 39.4 kg/m as calculated from the following: Height as of 08/11/24: 5' 6 . Weight as of this encounter: 244 lb 1.9 oz. BP: 110/70 Patient's last menstrual period was 06/23/2024. ASSESSMENT & PLAN ICD-10-CM 1. 17 weeks gestation of Z3A.17 POCT urinalysis dipstick manually resulted 2. Second trimester Z34.92 POCT urinalysis dipstick manually resulted 3. Stomach cramps R10.9 POCT urinalysis dipstick manually resulted 4. Stomach pain R10.9 POCT urinalysis dipstick manually resulted Patient presents today for a routine obstetrics appointment. Patient is currently 19w6d with a Estimated Date of Delivery: 03/30/25. Pt was seen in ER last evening for stomach cramps. Reviewed labs with pt in detail. Reassurrance given to pt. Rx for flexeril and zofran faxed to pharmacy. Pt given a script for tylenol with codeine Documented by Kaila Larkin LPN on behalf of: Ranjit Zamudio DO documented in this encounter [facility] 11-08-2024 Hospital Discharge instructions Patient Education 11/08/2024 18:27:10 Nausea and Vomiting, Adult Nausea and Vomiting, Adult Nausea is the feeling that you have an upset stomach or that you are about to vomit. As nausea gets worse, it can lead to vomiting. Vomiting is when stomach contents forcefully come out of your mouth as a result of nausea. Vomiting can make you feel weak and cause you to become dehydrated. Dehydration can make you feel tired and thirsty, cause you to have a dry mouth, and decrease how often you urinate. Older adults and people with other diseases or a weak disease-fighting system (immune system) are at higher risk for dehydration. It is important to treat your nausea and vomiting as told by your health care provider. Follow these instructions at home: Watch your symptoms for any changes. Tell your health care provider about them. Eating and drinking Take an oral rehydration solution (ORS). This is a drink that is sold at pharmacies and retail stores. Drink clear fluids slowly and in small amounts as you are able. Clear fluids include water, ice chips, low-calorie sports drinks, and fruit juice that has water added (diluted fruit juice). Eat bland, [id number] foods in small amounts as you are able. These foods include bananas, applesauce, rice, lean meats, toast, and crackers. Avoid fluids that contain a lot of sugar or caffeine, such as energy drinks, sports drinks, and soda. Avoid alcohol. Avoid spicy or fatty foods. General instructions Take [id number] and prescription medicines only as told by your health care provider. Drink enough fluid to keep your urine pale yellow. Wash your hands often using soap and water for at least 20 seconds. If soap and water are not available, use hand digital content specialist. Make sure that everyone in your household washes their hands well and often. Rest at home while you recover. Watch your condition for any changes. Take slow and deep breaths when you feel nauseous. Keep all follow-up visits. This is important. Contact a health care provider if: Your symptoms get worse. You have new symptoms. You have a fever. You cannot drink fluids without vomiting. Your nausea does not go away after 2 days. You feel light-headed or dizzy. You have a headache. You have muscle cramps. You have a rash. You have pain while urinating. Get help right away if: You have pain in your chest, neck, arm, or jaw. You feel extremely weak or you faint. You have persistent vomiting. You have vomit that is bright red or looks like black coffee grounds. You have bloody or black stools (feces) or stools that look like tar. You have a severe headache, a stiff neck, or both. You have severe pain, cramping, or bloating in your abdomen. You have difficulty breathing, or you are breathing very quickly. Your heart is beating very quickly. Your skin feels cold and clammy. You feel confused. You have signs of dehydration, such as: ?Dark urine, very little urine, or no urine. ?Cracked lips. ?Dry mouth. ?Sunken eyes. ?Sleepiness. ?Weakness. These symptoms may be an emergency. Get help right away. Call 911. Do not wait to see if the symptoms will go away. Do not drive yourself to the hospital. Summary Nausea is the feeling that you have an upset stomach or that you are about to vomit. As nausea gets worse, it can lead to vomiting. Vomiting can make you feel weak and cause you to become dehydrated. Follow instructions from your health care provider about eating and drinking to prevent dehydration. Take vdpl-qyh-xgiinyd and prescription medicines only as told by your health care provider. Contact your health care provider if your symptoms get worse, or you have new symptoms. Keep all follow-up visits. This is important. This information is not intended to replace advice given to you by your health care provider. Make sure you discuss any questions you have with your health care provider. Document Revised: 01/24/2022 Document Reviewed: 01/24/2022 [employer] Patient Education 2023 [employer]. 11/08/2024 18:27:10 Abdominal Pain During Abdominal Pain During Abdominal pain is common during and has many possible causes. Some causes are more serious than others, and sometimes the cause is not known. Abdominal pain can be a sign that labor is starting. It can also be caused by normal growth of your baby causing stretching of muscles and ligaments during . Always tell your health care provider if you have any abdominal pain. Follow these instructions at home: Do not have sex or put anything in your vagina until your pain goes away completely. Get plenty of rest until your pain improves. Drink enough fluid to keep your urine pale yellow. Take wrxj-hte-liiiupe and prescription medicines only as told by your health care provider. Keep all follow-up visits. This is important. Contact a health care provider if: Your pain continues or gets worse after resting. You have lower abdominal pain that: ?Comes and goes at regular intervals. ?Spreads to your back. ?Is similar to menstrual cramps. You have pain or burning when you urinate. Get help right away if: You have a fever, chills, or shortness of breath. You have vaginal bleeding. You are leaking fluid or passing tissue from your vagina. You have vomiting or diarrhea that lasts for more than 24 hours. Your baby is moving less than usual. You feel very weak or faint. You develop severe pain in your upper abdomen. Summary Abdominal pain is common during and has many possible causes. If you experience abdominal pain during , tell your health care provider right away. Follow your health care provider's home care instructions and keep all follow-up visits as told. This information is not intended to replace advice given to you by your health care provider. Make sure you discuss any questions you have with your health care provider. Document Revised: 04/02/2021 Document Reviewed: 04/02/2021 [employer] Patient Education 2023 [employer]. Follow Up Care 11/08/2024 16:08:40 With:Ranjit ZAMUDIO Address: [address] [place] [address]- Business (1) When:11/11/2024 18:16:21 With:Fredi Ellington Address: [address] [place] [address] [place] [address]- Business (1) When:Within 3 Day(s) [facility] 11-08-2024 Note ED Patient Education Note Gastroenterology Nausea and Vomiting, Adult Nausea is the feeling that you have an upset stomach or that you are about to vomit. As nausea gets worse, it can lead to vomiting. Vomiting is when stomach contents forcefully come out of your mouth as a result of nausea. Vomiting can make you feel weak and cause you to become dehydrated. Dehydration can make you feel tired and thirsty, cause you to have a dry mouth, and decrease how often you urinate. Older adults and people with other diseases or a weak disease-fighting system (immune system) are at higher risk for dehydration. It is important to treat your nausea and vomiting as told by your health care provider. Follow these instructions at home: Watch your symptoms for any changes. Tell your health care provider about them. Eating and drinking ??? Take an oral rehydration solution (ORS). This is a drink that is sold at pharmacies and retail stores. ??? Drink clear fluids slowly and in small amounts as you are able. Clear fluids include water, ice chips, low-calorie sports drinks, and fruit juice that has water added (diluted fruit juice). ??? Eat bland, skog-dc-zkvoxm foods in small amounts as you are able. These foods include bananas, applesauce, rice, lean meats, toast, and crackers. ??? Avoid fluids that contain a lot of sugar or caffeine, such as energy drinks, sports drinks, and soda. ??? Avoid alcohol. ??? Avoid spicy or fatty foods. General instructions ??? Take jekh-xfs-rpipqtf and prescription medicines only as told by your health care provider. ??? Drink enough fluid to keep your urine pale yellow. ??? Wash your hands often using soap and water for at least 20 seconds. If soap and water are not available, use hand digital content specialist. ??? Make sure that everyone in your household washes their hands well and often. ??? Rest at home while you recover. ??? Watch your condition for any changes. ??? Take slow and deep breaths when you feel nauseous. ??? Keep all follow-up visits. This is important. Contact a health care provider if: ??? Your symptoms get worse. ??? You have new symptoms. ??? You have a fever. ??? You cannot drink fluids without vomiting. ??? Your nausea does not go away after 2 days. ??? You feel light-headed or dizzy. ??? You have a headache. ??? You have muscle cramps. ??? You have a rash. ??? You have pain while urinating. Get help right away if: ??? You have pain in your chest, neck, arm, or jaw. ??? You feel extremely weak or you faint. ??? You have persistent vomiting. ??? You have vomit that is bright red or looks like black coffee grounds. ??? You have bloody or black stools (feces) or stools that look like tar. ??? You have a severe headache, a stiff neck, or both. ??? You have severe pain, cramping, or bloating in your abdomen. ??? You have difficulty breathing, or you are breathing very quickly. ??? Your heart is beating very quickly. ??? Your skin feels cold and clammy. ??? You feel confused. ??? You have signs of dehydration, such as: ? Dark urine, very little urine, or no urine. ? Cracked lips. ? Dry mouth. ? Sunken eyes. ? Sleepiness. ? Weakness. These symptoms may be an emergency. Get help right away. Call 911. ??? Do not wait to see if the symptoms will go away. ??? Do not drive yourself to the hospital. Summary ??? Nausea is the feeling that you have an upset stomach or that you are about to vomit. As nausea gets worse, it can lead to vomiting. Vomiting can make you feel weak and cause you to become dehydrated. ??? Follow instructions from your health care provider about eating and drinking to prevent dehydration. ??? Take rdwb-hgd-pvoybdi and prescription medicines only as told by your health care provider. ??? Contact your health care provider if your symptoms get worse, or you have new symptoms. ??? Keep all follow-up visits. This is important. This information is not intended to replace advice given to you by your health care provider. Make sure you discuss any questions you have with your health care provider. Document Revised: 01/24/2022 Document Reviewed: 01/24/2022 [employer] Patient Education ? 2023 [employer]. Obstetrics and Gynecology Abdominal Pain During Abdominal pain is common during and has many possible causes. Some causes are more serious than others, and sometimes the cause is not known. Abdominal pain can be a sign that labor is starting. It can also be caused by normal growth of your baby causing stretching of muscles and ligaments during . Always tell your health care provider if you have any abdominal pain. Follow these instructions at home: ??? Do not have sex or put anything in your vagina until your pain goes away completely. ??? Get plenty of rest until your pain improves. ??? Drink enough fluid t (more content not included)... [facility] 11-02-2024 History of Present illness Narrative Reason for Appointment: Patient ID: Rose Mary Schneider is a 18 y.o. female who presents for Routine Visit Patient presents today for Return OB appointment. MEDICATIONS Current Outpatient Medications Medication Instructions lurasidone (LATUDA) 20 mg, Daily with evening meal ondansetron ODT (ZOFRAN-ODT) 4 mg, Every 6 hours PRN MV-Min-Fe Fum-FA-DHA ( 1 PO) 1 each, Daily promethazine (PHENERGAN) 12.5 mg, Oral, Every 6 hours PRN, Take 1 tablet by mouth every 6 hours as needed for nausea. ALLERGIES No Known Allergies PROBLEMS Active Ambulatory Problems Diagnosis Date Noted Mood disorder ([facility]) 02/03/2024 Altered mental status 02/03/2024 Psychogenic nonepileptic seizure 02/03/2024 Resolved Ambulatory Problems Diagnosis Date Noted No Resolved Ambulatory Problems Past Medical History: Diagnosis Date Anxiety Asthma ([facility]) Depression ([facility]) DMDD (disruptive mood dysregulation disorder) ([facility]) History of being hospitalized 2020 HISTORY PAST MEDICAL HISTORY SOCIAL HISTORY Past Medical History: Diagnosis Date Anxiety Asthma (CMS/HCC) Depression (CMS/HCC) DMDD (disruptive mood dysregulation disorder) ([facility]) History of being hospitalized 2020 seizure Social History Tobacco Use Smoking status: Never Smokeless tobacco: Never Substance Use Topics Alcohol use: Never Comment: caffeine: 1-2 cups per day Drug use: Never FAMILY HISTORY Family History Problem Relation Name Age of Onset Allergies Mother Depression Mother Migraines Mother ADD / ADHD Father Allergies Father Allergies Sibling Depression Sibling SURGICAL HISTORY No past surgical history on file. REVIEW OF SYSTEMS Review of Systems: Review of Systems Constitutional: Negative. HENT: Negative. Eyes: Negative. Respiratory: Negative. Cardiovascular: Negative. Gastrointestinal: Positive for nausea and vomiting. Genitourinary: Negative. Musculoskeletal: Negative. Skin: Negative. Neurological: Negative. All other systems reviewed and are negative. Hematological: Negative. Endocrine: Negative. Allergic/Immunologic: Negative. OBJECTIVE Objective: Physical Exam Constitutional: Appearance: Normal appearance. She is well-developed. Cardiovascular: Rate and Rhythm: Normal rate and regular rhythm. Pulmonary: Effort: Pulmonary effort is normal. Breath sounds: Normal breath sounds. Abdominal: General: Bowel sounds are normal. There is no distension. Palpations: Abdomen is soft. Tenderness: There is no abdominal tenderness. There is no guarding or rebound. Musculoskeletal: General: No swelling. Normal range of motion. Right lower leg: No edema. Left lower leg: No edema. Neurological: Mental Status: She is alert and oriented to person, place, and time. Skin: General: Skin is warm and dry. Psychiatric: Mood and Affect: Mood normal. Behavior: Behavior normal. Vitals and nursing note reviewed. Exam conducted with a line installation supervisor present. Vitals: Estimated body mass index is 39.54 kg/m as calculated from the following: Height as of 08/11/24: 5' 6 . Weight as of 09/26/24: 245 lb. BP: Patient's last menstrual period was 06/23/2024. ASSESSMENT & PLAN ICD-10-CM 1. Screening, , for anatomic survey Z36.89 US OB 14+ weeks anatomy scan US OB 14+ weeks anatomy scan 2. Second trimester Z34.92 POCT urinalysis dipstick manually resulted 3. 18 weeks gestation of Z3A.18 Alpha fetoprotein, maternal Alpha fetoprotein, maternal 4. Vaginal discharge N89.8 SURESWAB(R) ADVANCED VAGINITIS PLUS, TMA CHLAMYDIA TRACHOMATIS (GENITO/STI) Neisseria gonorrhea DNA probe, direct 5. STD exposure Z20.2 SURESWAB(R) ADVANCED VAGINITIS PLUS, TMA CHLAMYDIA TRACHOMATIS (GENITO/STI) Neisseria gonorrhea DNA probe, direct Return OB: Patient presents today for a routine obstetrics appointment. Patient is currently 18w6d . Patient states she is doing well but has complaints of being tired and with continued Nausea and Vomiting. She has continued with Zofran and promethazine without relief. She has had recent weight loss. Given hyperemesis will recommend Zofran pump. Should she have any worsening symptoms or concerns she is to reach out to our office. Orders Placed This Encounter Procedures US OB 14+ weeks anatomy scan CHLAMYDIA TRACHOMATIS (GENITO/STI) Neisseria gonorrhea DNA probe, direct Alpha fetoprotein, maternal POCT urinalysis dipstick manually resulted Follow Up: Patient is to return to office in 4 week for routine OB appointment. Documented by Neeta Garrido NP on behalf of: MARIE Flores documented in this encounter [facility] 09-26-2024 History of Present illness Narrative Reason for Appointment: Patient ID: Rose Mary Schneider is a 18 y.o. female who presents for No chief complaint on file. Patient presents today for Return OB appointment. MEDICATIONS Current Outpatient Medications Medication Instructions lurasidone (LATUDA) 20 mg, Daily with evening meal ondansetron ODT (ZOFRAN-ODT) 4 mg, Every 6 hours PRN MV-Min-Fe Fum-FA-DHA ( 1 PO) 1 each, Daily promethazine (PHENERGAN) 12.5 mg, Oral, Every 6 hours PRN, Take 1 tablet by mouth every 6 hours as needed for nausea. ALLERGIES No Known Allergies PROBLEMS Active Ambulatory Problems Diagnosis Date Noted Mood disorder ([facility]) 02/03/2024 Altered mental status 02/03/2024 Psychogenic nonepileptic seizure ([facility]) 02/03/2024 Resolved Ambulatory Problems Diagnosis Date Noted No Resolved Ambulatory Problems Past Medical History: Diagnosis Date Anxiety Asthma ([facility]) Depression ([facility]) DMDD (disruptive mood dysregulation disorder) ([facility]) History of being hospitalized 2020 HISTORY PAST MEDICAL HISTORY SOCIAL HISTORY Past Medical History: Diagnosis Date Anxiety Asthma ([facility]) Depression ([facility]) DMDD (disruptive mood dysregulation disorder) ([facility]) History of being hospitalized 2020 seizure Social [...] SYSTEMS Review of Systems: Review of Systems All other systems reviewed and are negative. OBJECTIVE Objective: Physical Exam Constitutional: Appearance: Normal appearance. She is well-developed. Cardiovascular: Rate and Rhythm: Normal rate and regular rhythm. Pulmonary: Effort: Pulmonary effort is normal. Breath sounds: Normal breath sounds. Abdominal: General: Bowel sounds are normal. There is no distension. Palpations: Abdomen is soft. Tenderness: There is no abdominal tenderness. There is no guarding or rebound. Musculoskeletal: General: No swelling. Normal range of motion. Right lower leg: No edema. Left lower leg: No edema. Neurological: Mental Status: She is alert and oriented to person, place, and time. Skin: General: Skin is warm and dry. Psychiatric: Mood and Affect: Mood normal. Behavior: Behavior normal. Vitals and nursing note reviewed. Exam conducted with a line installation supervisor present. Vitals: Estimated body mass index is 39.54 kg/m as calculated from the following: Height as of 08/11/24: 5' 6 . Weight as of this encounter: 245 lb. BP: 100/60 Patient's last menstrual period was 06/23/2024. ASSESSMENT & PLAN ICD-10-CM 1. 13 weeks gestation of Z3A.13 POCT urinalysis dipstick manually resulted 2. Second trimester Z34.92 POCT urinalysis dipstick manually resulted 3. Nausea and vomiting, unspecified vomiting type R11.2 promethazine (Phenergan) 12.5 MG tablet New OB: Patient presents today for 1st time obstetrics appointment with provider. Patient is currently 13w4d . Patients history has been reviewed in great detail including any potential risks. Patient stated she currently has no complaints. Expectations throughout regarding labs, ultrasounds, and appointments have been discussed with the patient in detail. It was reiterated that the patient is to drink 6-8 glasses of water a day, eat 6 small meals a day, do not consume raw or undercooked meat, and stay away from [facility]. Patient has been consulted regarding any further do's and don'ts of . Patient voiced understanding and all questions and concerns were answered. Patient voiced that she is still having nausea, phenergan sent to patients pharmacy to help with symptoms. Patient voiced itching all over, advised patient to ensure she uses lotion due to time of year. Patient to monitor symptoms and if persistent then lab work would be ordered. Orders Placed This Encounter Procedures POCT urinalysis dipstick manually resulted Follow Up: Patient is to return in 4 weeks for routine OB appointment. Documented by Deneen Rivera LPN on behalf of: Ranjit Zamudio DO documented in this encounter [facility] 09-06-[address] Palma a psych doctor of the patient called office to speak w/a nurse in regards to this patient. Dr. Palma asked if I knew of someone or Dr. Zamudio advising the pt to stop taking all her medication? The doctor continued to say that the patient is on a few psych medications and is suppose to stay on the medication due to her mental state. I advised Dr. Palma that I was the one who did her new OB nurse visit on 08/25/2024. I stated to the doctor that during her intake, one of the questions I asked the patient was if she is on any medication besides PNV that we should be aware of? The pt stated that she is on some medication her doctor has her on and if she stop taking her medication. Pt was advised to continue taking her medication as prescribed by her physician, and to please tell Dr. Zamudio what medications your concerned about at the next OB visit. Pt verbally understood before she left our office. I advised Dr. Palma that Dr. Zamudio will determine if the pt should continue the medication or stop the medication. Dr. Palma said that he didn't think we would have done that since he had already spoke w/Dr. Zamudio prior to pt seeing us and was in an agreement with pt mental status/meds. I advised the doctor we do not tell patients to stop taking medication unless if comes from Dr. Zamudio himself. Dr. Palma states patient just stopped taking her medication and just wanted to clear the matter up and see what had happened/was discussed at the visit. I reassured the doctor we do not tell patients to stop taking medication w/o consulting w/our OB doctor. Dr. Palma stated he will talk to the patient and clear up the misunderstanding. Doctor Louie thanked me for my time in this matter. [facility] 09-06-[address] Palma a psych doctor of the patient called office to speak w/a nurse in regards to this patient. Dr. Palma asked if I knew of someone or Dr. Zamudio advising the pt to stop taking all her medication? The doctor continued to say that the patient is on a few psych medications and is suppose to stay on the medication due to her mental state. I advised Dr. Palma that I was the one who did her new OB nurse visit on 08/25/2024. I stated to the doctor that during her intake, one of the questions I asked the patient was if she is on any medication besides PNV that we should be aware of? The pt stated that she is on some medication her doctor has her on and if she stop taking her medication. Pt was advised to continue taking her medication as prescribed by her physician, and to please tell Dr. Zamudio what medications your concerned about at the next OB visit. Pt verbally understood before she left our office. I advised Dr. Palma that Dr. Zamudio will determine if the pt should continue the medication or stop the medication. Dr. Palma said that he didn't think we would have done that since he had already spoke w/Dr. Zamudio prior to pt seeing us and was in an agreement with pt mental status/meds. I advised the doctor we do not tell patients to stop taking medication unless if comes from Dr. Zamudio himself. Dr. Palma states patient just stopped taking her medication and just wanted to clear the matter up and see what had happened/was discussed at the visit. I reassured the doctor we do not tell patients to stop taking medication w/o consulting w/our OB doctor. Dr. Palma stated he will talk to the patient and clear up the misunderstanding. Doctor Louie thanked me for my time in this matter. documented in this encounter [facility] 08-25-2024 History of Present illness Narrative Reason for Appointment: Patient ID: Rose Mary Schneider is a 18 y.o. female who presents for Amenorrhea Patient presents today for a Nurse OB Intake appointment. Patient is 9w0d with a Estimated Date of Delivery: 03/30/25 OB History Para Term AB Living 1 SAB IAB Ectopic Multiple Live Births # Outcome Date GA Lbr Chuy/2nd Weight Sex Type Anes PTL Lv 1 Current Current Medications: has a current medication list which includes the following prescription(s): cetirizine, clonidine, fluoxetine, hydroxyzine hcl, lurasidone, melatonin, naproxen, norethindrone-ethinyl estradiol, and pantoprazole. Medical History: Active Ambulatory Problems Diagnosis Date Noted Mood disorder ([facility]) 02/03/2024 Altered mental status 02/03/2024 Psychogenic nonepileptic seizure ([facility]) 02/03/2024 Resolved Ambulatory Problems Diagnosis Date Noted No Resolved Ambulatory Problems Past Medical History: Diagnosis Date Anxiety Asthma ([facility]) Depression ([facility]) DMDD (disruptive mood dysregulation disorder) ([facility]) History of being hospitalized 2020 Family History Problem Relation Name Age of Onset Allergies Mother Depression Mother Migraines Mother ADD /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 these do control her anxiety/mood and events, she may have to decide risk vs benefit on some of her meds The patient was counseled on proper sleep hygiene and adequate hours of sleep. This was discussed with the patient and her mother, all questions were answered they agreed with the treatment plan. They will call for worsening of symptoms, and/or increase in amount of seizure activity. Return to clinic: 6 months documented in this encounter [facility] 06-27-2024 Hospital Discharge instructions Patient Education 06/27/2024 00:49:28 Hypokalemia Hypokalemia Hypokalemia means that the amount of potassium in the blood is lower than normal. Potassium is a mineral (electrolyte) that helps regulate the amount of fluid in the body. It also stimulates muscle tightening (contraction) and helps nerves work properly. Normally, most of the body's potassium is inside cells, and only a very small amount is in the blood. Because the amount in the blood is so small, minor changes to potassium levels in the blood can be life-threatening. What are the causes? This condition may be caused by: Antibiotic medicine. Diarrhea or vomiting. Taking too much of a medicine that helps you have a bowel movement (laxative) can cause diarrhea and lead to hypokalemia. Chronic kidney disease (CKD). Medicines that help the body get rid of excess fluid (diuretics). Eating disorders, such as anorexia or bulimia. Low magnesium levels in the body. Sweating a lot. What are the signs or symptoms? Symptoms of this condition include: Weakness. Constipation. Fatigue. Muscle cramps. Mental confusion. Skipped heartbeats or irregular heartbeat (palpitations). Tingling or numbness. How is this diagnosed? This condition is diagnosed with a blood test. How is this treated? This condition may be treated by: Taking potassium supplements. Adjusting the medicines that you take. Eating more foods that contain a lot of potassium. If your potassium level is very low, you may need to get potassium through an IV and be monitored in the hospital. Follow these instructions at home: Eating and drinking Eat a healthy diet. A healthy diet includes fresh fruits and vegetables, whole grains, healthy fats, and lean proteins. If told, eat more foods that contain a lot of potassium. These include: ?Nuts, such as peanuts and pistachios. ?Seeds, such as sunflower seeds and pumpkin seeds. ?Peas, lentils, and tracy beans. ?Whole grain and bran cereals and breads. ?Fresh fruits and vegetables, such as apricots, avocado, bananas, cantaloupe, kiwi, oranges, tomatoes, asparagus, and potatoes. ?Juices, such as orange, tomato, and prune. ?Lean meats, including fish. ?Milk and milk products, such as yogurt. General instructions Take mqhu-mni-ydmjebq and prescription medicines only as told by your health care provider. This includes vitamins, natural food products, and supplements. Keep all follow-up visits. This is important. Contact a health care provider if: You have weakness that gets worse. You feel your heart pounding or racing. You vomit. You have diarrhea. You have diabetes and you have trouble keeping your blood sugar in your target range. Get help right away if: You have chest pain. You have shortness of breath. You have vomiting or diarrhea that lasts for more than 2 days. You faint. These symptoms may be an emergency. Get help right away. Call 911. Do not wait to see if the symptoms will go away. Do not drive yourself to the hospital. Summary Hypokalemia means that the amount of potassium in the blood is lower than normal. This condition is diagnosed with a blood test. Hypokalemia may be treated by taking potassium supplements, adjusting the medicines that you take, or eating more foods that are high in potassium. If your potassium level is very low, you may need to get potassium through an IV and be monitored in the hospital. This information is not intended to replace advice given to you by your health care provider. Make sure you discuss any questions you have with your health care provider. Document Revised: 04/03/2022 Document Reviewed: 04/03/2022 [employer] Patient Education 2023 [employer]. 06/27/2024 00:49:28 Non-Epileptic Seizures, Adult Non-Epileptic Seizures, Adult A non-epileptic seizure is an event that can cause abnormal movements or a loss of consciousness. These events differ from epileptic seizures because they are not caused by abnormal electrical and chemical activity in the brain. There are two types of non-epileptic seizures: Physiologic. This type results from an underlying problem with body function. Psychogenic. This type results from an underlying mental health disorder. What are the causes? The cause of this condition depends on the kind of non-epileptic seizure that you have. Causes of physiologic non-epileptic seizures Sudden drop in blood pressure or heart rhythm problems. Low blood sugar (glucose) or low levels of salt (sodium) in your blood. Migraine. Sleep disorders or movement disorders. Certain medicines. Heavy use of drugs or alcohol. Head injuries. Causes of psychogenic non-epileptic seizures Stress. Emotional trauma. Sexual or physical abuse. Big life events, such as divorce or of a loved one. Mental health disorders, including anxiety and depression. What are the signs or symptoms? Symptoms of a non-epileptic seizure can be similar to those of an epileptic seizure. They may include: A change in attention or behavior. A loss of consciousness or fainting. Uncontrollable shaking (convulsions) with fast, jerking movements. Drooling, tongue biting, or grunting. Rapid eye movements. Being unable to control when you urinate or have bowel movements. After a non-epileptic seizure, you may: Have a headache or sore muscles. Feel confused or sleepy. Non-epileptic seizures usually: Do not cause physical injuries. Start slowly. Include crying or shrieking. Last longer than 2 minutes. Include pelvic thrusting. How is this diagnosed? Non-epileptic seizures may be diagnosed by medical history, physical exam, and symptoms. Your health care provider may: Talk with your friends or relatives who have seen you have a seizure. Ask you to write down your seizure activity and the things that led up to the seizure, and ask you to share that information with him or her. You may also have tests to look for causes of physiologic non-epileptic seizures. Tests may include: An electroencephalogram (EEG) to check the electrical activity in your brain. Video EEG in the hospital. This takes 2 7 days. Blood tests. An electrocardiogram (ECG) to check for an abnormal heart rhythm. A CT scan. If your health care provider thinks you have had a psychogenic non-epileptic seizure, you may need to be evaluated by a mental health specialist. How is this treated? The treatment for your non-epileptic seizures will depend on their cause. When the underlying condition is treated, your non-epileptic seizures should stop. Medicines to treat seizures do not help with non-epileptic events. If your non-epileptic seizures are being caused by emotional trauma or stress, your health care provider may recommend that you see a mental health specialist. Treatment may include: Relaxation therapy or cognitive behavioral therapy (CBT). Medicines for depression or anxiety. Individual or family counseling. Some people have both psychogenic non-epileptic seizures and epileptic seizures. If you have both of these types, you may be prescribed medicine to manage the epileptic seizures. Follow these instructions at home: Home care will depend on the type of non-epileptic seizures that you have. Follow this general guidance: Avoid alcohol and drug use Avoid using any substance that may prevent your medicine from working properly. If you are prescribed medicine for seizures: Do not use drugs. Limit or avoid drinking alcohol. If you drink alcohol: ?Limit how much you have to: ?0 1 drink a day for women who are not . ?0 2 drinks a day for men. ?Know how much alcohol is in your drink. In the [place] one drink equals one 12 oz bottle of beer (355 mL), one 5 oz glass of wine (148 mL), or one 1 oz glass of hard liquor (44 mL). Involve family, friends, and coworkers Make sure family members, friends, and coworkers are trained in how to help you if you have a seizure. If you have a seizure, they should: Lay you on the ground to prevent a fall. Place a pillow or piece of clothing under your head. Loosen any clothing around your neck. Turn you onto your side. If you vomit, this position will help keep your windpipe clear. General instructions Follow all instructions from your health care provider. These may include ways to prevent seizures and what to do if you have a seizure. Take xnav-huf-ghtyxfw and prescription medicines only as told by your health care provider. Keep all follow-up visits. This is important. Contact a health care provider if: Your non-epileptic seizures change or happen more often. Your non-epileptic seizures do not stop after treatment. Get help right away if: You injure yourself during a non-epileptic seizure. You have one non-epileptic seizure after another. You have trouble recovering from a non-epileptic seizure. You have chest pain or trouble breathing. You have a non-epileptic seizure that lasts longer than 5 minutes. These symptoms may represent a serious problem that is an emergency. Do not wait to see if the symptoms will go away. Get medical help right away. Call your local emergency services (965 in the [place] Do not drive yourself to the hospital. If you ever feel like you may hurt yourself or others, or have thoughts about taking your own life, get help right away. Go to your nearest emergency department or: Call your local emergency services (566 in the [place] Call a suicide crisis helpline, such as the National Suicide Prevention Lifeline at or 585 in the [place] This is open 24 hours a day in the [place] Text the Crisis Text Line at 062398 (in the [place] Summary Non-epileptic seizures are events that can cause abnormal movements or a loss of consciousness. These events are caused by an underlying problem with body function or a mental health disorder. The treatment for your non-epileptic seizures will depend on their cause. When the underlying condition is treated, your non-epileptic seizures should stop. Medicines for seizures do not treat non-epileptic events. People with non-epileptic seizures may also have epileptic seizures and may need medicines to treat seizures. Make sure family members, friends, and coworkers are trained in how to help you if you have a non-epileptic seizure. This includes laying you on the ground to prevent a fall, protecting your head and neck, and turning you onto your side. This information is not intended to replace advice given to you by your health care provider. Make sure you discuss any questions you have with your health care provider. Document Revised: 02/12/2022 Document Reviewed: 01/04/2021 Else[employer] Patient Education 2023 [employer]. Follow Up Care 06/26/2024 23:14:27 With:Melecio Rubio Address: [address] [place] [address]- Business (1) When:06/30/2024 With:Fredi Rakel Address: [facility] [place] [address]- Business (1) When:Within 3 Day(s) [facility] 06-27-2024 Note ED Patient Education Note Gastroenterology Hypokalemia Hypokalemia means that the amount of potassium in the blood is lower than normal. Potassium is a mineral (electrolyte) that helps regulate the amount of fluid in the body. It also stimulates muscle tightening (contraction) and helps nerves work properly. Normally, most of the body's potassium is inside cells, and only a very small amount is in the blood. Because the amount in the blood is so small, minor changes to potassium levels in the blood can be life-threatening. What are the causes? This condition may be caused by: ??? Antibiotic medicine. ??? Diarrhea or vomiting. Taking too much of a medicine that helps you have a bowel movement (laxative) can cause diarrhea and lead to hypokalemia. ??? Chronic kidney disease (CKD). ??? Medicines that help the body get rid of excess fluid (diuretics). ??? Eating disorders, such as anorexia or bulimia. ??? Low magnesium levels in the body. ??? Sweating a lot. What are the signs or symptoms? Symptoms of this condition include: ??? Weakness. ??? Constipation. ??? Fatigue. ??? Muscle cramps. ??? Mental confusion. ??? Skipped heartbeats or irregular heartbeat (palpitations). ??? Tingling or numbness. How is this diagnosed? This condition is diagnosed with a blood test. How is this treated? This condition may be treated by: ??? Taking potassium supplements. ??? Adjusting the medicines that you take. ??? Eating more foods that contain a lot of potassium. If your potassium level is very low, you may need to get potassium through an IV and be monitored in the hospital. Follow these instructions at home: Eating and drinking ??? Eat a healthy diet. A healthy diet includes fresh fruits and vegetables, whole grains, healthy fats, and lean proteins. ??? If told, eat more foods that contain a lot of potassium. These include: ? Nuts, such as peanuts and pistachios. ? Seeds, such as sunflower seeds and pumpkin seeds. ? Peas, lentils, and tracy beans. ? Whole grain and bran cereals and breads. ? Fresh fruits and vegetables, such as apricots, avocado, bananas, cantaloupe, kiwi, oranges, tomatoes, asparagus, and potatoes. ? Juices, such as orange, tomato, and prune. ? Lean meats, including fish. ? Milk and milk products, such as yogurt. General instructions ??? Take esmv-kpf-mxmoaij and prescription medicines only as told by your health care provider. This includes vitamins, natural food products, and supplements. ??? Keep all follow-up visits. This is important. Contact a health care provider if: ??? You have weakness that gets worse. ??? You feel your heart pounding or racing. ??? You vomit. ??? You have diarrhea. ??? You have diabetes and you have trouble keeping your blood sugar in your target range. Get help right away if: ??? You have chest pain. ??? You have shortness of breath. ??? You have vomiting or diarrhea that lasts for more than 2 days. ??? You faint. These symptoms may be an emergency. Get help right away. Call 911. ??? Do not wait to see if the symptoms will go away. ??? Do not drive yourself to the hospital. Summary ??? Hypokalemia means that the amount of potassium in the blood is lower than normal. ??? This condition is diagnosed with a blood test. ??? Hypokalemia may be treated by taking potassium supplements, adjusting the medicines that you take, or eating more foods that are high in potassium. ??? If your potassium level is very low, you may need to get potassium through an IV and be monitored in the hospital. This information is not intended to replace advice given to you by your health care provider. Make sure you discuss any questions you have with your health care provider. Document Revised: 04/03/2022 Document Reviewed: 04/03/2022 [employer] Patient Education ? 2023 [employer]. Neurology Non-Epileptic Seizures, Adult A non-epileptic seizure is an event that can cause abnormal movements or a loss of consciousness. These events differ from epileptic seizures because they are not caused by abnormal electrical and chemical activity in the brain. There are two types of non-epileptic seizures: ??? Physiologic. This type results from an underlying problem with body function. ??? Psychogenic. This type results from an underlying mental health disorder. What are the causes? The cause of this condition depends on the kind of non-epileptic seizure that you have. Causes of physiologic non-epileptic seizures ??? Sudden drop in blood pressure or heart rhythm problems. ??? Low blood sugar (glucose) or low levels of salt (sodium) in your blood. ??? Migraine. ??? Sleep disorders or movement disorders. ??? Certain medicines. ??? Heavy use of drugs or alcohol. ??? Head injuries. Causes of psychogenic non-epileptic seizures ??? Stress. ??? Emotional trauma. ??? Sexual or physical abuse. ??? Big life events, such as (more content not included)... [facility] 06-26-2024 Evaluation + Plan note Extrac gamaliel from: Title:ED Note Author:Han Bolaños DO Date :06/26/24 Hypokalemia (E87.6: Hypokale tc) Nonepileptic episode (R56.9: Unspecified convulsions) Orders: potassium chloride, 40 mEq = 2 tab(s), Tab-ER, Oral, Once, Stop date 06/27/24 0:36:00 EST, STAT, Start date 06/27/24 0:36:00 EST, 06/27/24 0:36:00 EST Basic Metabolic Panel CBC w/ Auto Diff CT Head or Brain w/o Contrast Drug Screen Urine ED Cardiac Monitoring eGFR Oxygen Saturation PT & PTT Troponin 0 Hr. U Beta Hcg Qual UA with Cult Rflx XR Chest Single View Future Scheduled Tests Radiology* BD Bone Density DEXA 04/25/24 [facility] 10-21-2024 Hospital Discharge instructions Patient Education 05/22/2024 22:41:58 Upper Respiratory Infection, Adult, Fxfo-ld-Jlpl Upper Respiratory Infection, Adult An upper respiratory infection (URI) affects the nose, throat, and upper airways that lead to the lungs. The most common type of URI is often called the common cold. URIs usually get better on their own, without medical treatment. What are the causes? A URI is caused by a germ (virus). You may catch these germs by: Breathing in droplets from an infected person's cough or sneeze. Touching something that has the germ on it (is contaminated) and then touching your mouth, nose, oreyes. What increases the risk? You are more likely to get a URI if: You are very young or very old. You have close contact with others, such as at work, school, or a health care facility. You smoke. You have long-term (chronic) heart or lung disease. You have a weakened disease-fighting system (immune system). You have nasal allergies or asthma. You have a lot of stress. You have poor nutrition. What are the signs or symptoms? Runny or stuffy (congested) nose. Cough. Sneezing. Sore throat. Headache. Feeling tired (fatigue). Fever. Not wanting to eat as much as usual. Pain in your forehead, behind your eyes, and over your cheekbones (sinus pain). Muscle aches. Redness or irritation of the eyes. Pressure in the ears or face. How is this treated? URIs usually get better on their own within 7 10 days. Medicines cannot cure URIs, but your doctor may recommend certain medicines to help relieve symptoms, such as: Scsy-btb-jbunfqd cold medicines. Medicines to reduce coughing (cough suppressants). Coughing is a type of defense against infection that helps to clear the nose, throat, windpipe, and lungs (respiratory system). Take these medicinesonly as told by your doctor. Medicines to lower your fever. Follow these instructions at home: Activity Rest as needed. If you have a fever, stay home from work or school until your fever is gone, or until your doctor says you may return to work or school. ?You should stay home until you cannot spread the infection anymore (you are not contagious). ?Your doctor may have you wear a face mask so you have less risk of spreading the infection. Relieving symptoms Rinse your mouth often with salt water. To make salt water, dissolve 1 tsp (3 6 g) of salt in 1 cup(237 mL) of warm water. Use a cool-mist humidifier to add moisture to the air. This can help you breathe more easily. Eating and drinking Drink enough fluid to keep your pee (urine) pale yellow. Eat soups and other clear broths. General instructions Take cvdr-akm-xcrhato and prescription medicines only as told by your doctor. Do not smoke or use any products that contain nicotine or tobacco. If you need help quitting, ask your doctor. Avoid being where people are smoking (avoid secondhand smoke). Stay up to date on all your shots (immunizations), and get the flu shot every year. Keep all follow-up visits. How to prevent the spread of infection to others Wash your hands with soap and water for at least 20 seconds. If you cannot use soap and water, use hand digital content specialist. Avoid touching your mouth, face, eyes, or nose. Cough or sneeze into a tissue or your sleeve or elbow. Do not cough or sneeze into your hand or into the air. Contact a doctor if: You are getting worse, not better. You have any of these: ?A fever or chills. ?Brown or red mucus in your nose. ?Yellow or brown fluid (discharge)coming from your nose. ?Pain in your face, especially when you bend forward. ?Swollen neck glands. ?Pain when you swallow. ?White areas in the back of your throat. Get help right away if: You have shortness of breath that gets worse. You have very bad or constant: ?Headache. ?Ear pain. ?Pain in your forehead, behind your eyes, and over your cheekbones (sinus pain). ?Chest pain. You have long-lasting (chronic) lung disease along with any of these: ?Making high-pitched whistling sounds when you breathe, most often when you breathe out (wheezing). ?Long-lasting cough (more than 14 days). ?Coughing up blood. ?A change in your usual mucus. You have a stiff neck. You have changes in your: ?Vision. ?Hearing. ?Thinking. ?Mood. These symptoms may be an emergency. Get help right away. Call 911. Do not wait to see if the symptoms will go away. Do not drive yourself to the hospital. Summary An upper respiratory infection (URI) is caused by a germ (virus). The most common type of URI is often called the common cold. URIs usually get better within 7 10 days. Take qpuh-rvw-qzosaiy and prescription medicines only as told by your doctor. This information is not intended to replace advice given to you by your health care provider. Make sure you discuss any questions you have with your health care provider. Document Revised: 02/19/2022 Document Reviewed: 02/19/2022 [employer] Patient Education 2023 [employer]. Follow Up Care 05/22/2024 21:50:15 With:Fredi Ellington Address: [address] [place] [address] Business (1) When:05/25/2024 Comments:Call Dr for diagnosis based follow up [facility] 10-20-2024 NoteED Patient Education Note Infectious Disease Upper Respiratory Infection, Adult An upper respiratory infection (URI) affects the nose, throat, and upper airways that lead to the lungs. The most common type of URI is often called the common cold. URIs usually get better on their own, without medical treatment. What are the causes? A URI is caused by a germ (virus). You may catch these germs by: ? Breathing in droplets from an infected person's cough or sneeze. ? Touching something that has the germ on it (is contaminated) and then touching your mouth, nose, or eyes. What increases the risk? You are more likely to get a URI if: ? You are very young or very old. ? You have close contact with others, such as at work, school, or a health care facility. ? You smoke. ? You have long-term (chronic) heart or lung disease. ? You have a weakened disease-fighting system (immune system). ? You have nasal allergies or asthma. ? You have a lot of stress. ? You have poor nutrition. What are the signs or symptoms? ? Runny or stuffy (congested) nose. ? Cough. ? Sneezing. ? Sore throat. ? Headache. ? Feeling tired (fatigue). ? Fever. ? Not wanting to eat as much as usual. ? Pain in your forehead, behind your eyes, and over your cheekbones (sinus pain). ? Muscle aches. ? Redness or irritation of the eyes. ? Pressure in the ears or face. How is this treated? URIs usually get better on their own within 7?10 days. Medicines cannot cure URIs, but your doctor may recommend certain medicines to help relieve symptoms, such as: ? Ourd-jov-njiwojt cold medicines. ? Medicines to reduce coughing (cough suppressants). Coughing is a type of defense against infection that helps to clear the nose, throat, windpipe, and lungs (respiratory system). Take these medicines only as told by your doctor. ? Medicines to lower your fever. Follow these instructions at home: Activity ? Rest as needed. ? If you have a fever, stay home from work or school until your fever is gone, or until your doctorsays you may return to work or school. ? You should stay home until you cannot spread the infection anymore (you are not contagious). ? Your doctor may have you wear a face mask so you have less risk of spreading the infection. Relieving symptoms ? Rinse your mouth often with salt water. To make salt water, dissolve ??1 tsp (3?6 g) of salt in 1cup (237 mL) of warm water. ? Use a cool-mist humidifier to add moisture to the air. This can help you breathe more easily. Eating and drinking ? Drink enough fluid to keep your pee (urine) pale yellow. ? Eat soups and other clear broths. General instructions ? Take cawj-rdb-wyzzasz and prescription medicines only as told by your doctor. ? Do not smoke or use any products that contain nicotine or tobacco. If you need help quitting, askyour doctor. ? Avoid being where people are smoking (avoid secondhand smoke). ? Stay up to date on all your shots (immunizations), and get the flu shot every year. ? Keep all follow-up visits. How to prevent the spread of infection to others ? Wash your hands with soap and water for at least 20 seconds. If you cannot use soap and water, use hand digital content specialist. ? Avoid touching your mouth, face, eyes, or nose. ? Cough or sneeze into a tissue or your sleeve or elbow. Do not cough or sneeze into your hand or into the air. Contact a doctor if: ? You are getting worse, not better. ? You have any of these: ? A fever or chills. ? Brown or red mucus in your nose. ? Yellow or brown fluid (discharge)coming from your nose. ? Pain in your face, especially when you bend forward. ? Swollen neck glands. ? Pain when you swallow. ? White areas in the back of your throat. Get help right away if: ? You have shortness of breath that gets worse. ? You have very bad or constant: ? Headache. ? Ear pain. ? Pain in your forehead, behind your eyes, and over your cheekbones (sinus pain). ? Chest pain. ? You have long-lasting (chronic) lung disease along with any of these: ? Making high-pitched whistling sounds when you breathe, most often when you breathe out (wheezing). ? Long-lasting cough (more than 14 days). ? Coughing up blood. ? A change in your usual mucus. ? You have a stiff neck. ? You have changes in your: ? Vision. ? Hearing. ? Thinking. ? Mood. These symptoms may be an emergency. Get help right away. Call 911. ? Do not wait to see if the symptoms will go away. ? Do not drive yourself to the hospital. Summary ? An upper respiratory infection (URI) is caused by a germ (virus). The most common type of URI is often called the common cold. ? URIs usually get better within 7?10 days. ? Take dhqz-kpp-kvekatv and prescription medicines only as told by your doctor. This information is not intended to replace advice given (more content not included)...[facility]10-20-2024 Evaluation + Plan note Extracted from: Title:ED Note Author:Alexandru Barajas PA-C te:05/22/24 Viral URI (J06.9: Acute uppe r respiratory infection, unspecified) Orders: brompheniramine/dextromethorphan/PSE, 5 mL, Oral, QID for cold symptoms, 200 mL, Refill(s) 0, [id number], 170.2, cm, 05/22/24 21:55:00 EDT, Height/Length Dosing, 115.8, kg, 05/22/24 21:55:00 EDT, Weight Dosing dexamethasone, 10 mg = 1 mL, Injection, Oral, Once, Stop date 05/22/24 22:28:00 EDT, STAT, Start date 05/22/24 22:28:00 EDT, [facility]- max dose 12 mg, 05/22/24 22:28:00 EDT ondansetron, 4 mg = 1 tab(s), Oral, q8hr, PRN Nausea/Vomiting, # 12 tab(s), Refills(s) 0, Pharmacy: [id number], 170.2, cm, 05/22/24 21:55:00 EDT, Height/Length Dosing, 115.8, kg, 05/22/24 21:55:00 EDT, Weight Dosing Diagnostic Tests Pending * Group A Strep by PCR 05/22/24 Future Scheduled Tests Radiology* BD Bone Density DEXA 04/25/24 [facility] 09-23-2024 Evaluation + Plan note Future Scheduled Tests Radiology* US Thyroid 04/25/24 * BD Bone Density DEXA 04/25/24 [facility] 09-23-2024 Evaluation + Plan note Future Scheduled Tests Radiology* BD Bone Density DEXA 04/25/24 [facility] 09-13-2024 Hospital Discharge instructions Patient Education 04/14/2024 22:31:19 Syncope, Adult Syncope, Adult Syncope refers to a condition in which a person temporarily loses consciousness. Syncope may also be called fainting or passing out. It is caused by a sudden decrease in blood flow to the brain. Thiscan happen for a variety of reasons. Most causes of syncope are not dangerous. It can be triggered by things such as needle sticks, seeing blood, pain, or intense emotion. However, syncope can also be a sign of a serious medical problem, such as a heart abnormality. Other causes can include dehydration, migraines, or taking medicines that lower blood pressure. Your health care provider may do tests to find the reason why you are having syncope. If you faint, get medical help right away. Call your local emergency services (911 in the [place] Follow these instructions at home: Pay attention to any changes in your symptoms. Take these actions to stay safe and to help relieve your symptoms: Knowing when you may be about to faint Signs that you may be about to faint include: ?Feeling dizzy, weak, light-headed, or like the room is spinning. ?Feeling nauseous. ?Seeing spots or seeing all white or all black in your field of vision. ?Having cold, clammy skin or feeling warm and sweaty. ?Hearing ringing in the ears (tinnitus). If you start to feel like you might faint, sit or lie down right away. If sitting, put your head down between your legs. If lying down, raise (elevate) your feet above the level of your heart. ?Breathe deeply and steadily. Wait until all the symptoms have passed. ?Have someone stay with you until you feel stable. Medicines Take vlsy-kzm-lhrdryw and prescription medicines only as told by your health care provider. If you are taking blood pressure or heart medicine, get up slowly and take several minutes to sit and then stand. This can reduce dizziness and decrease the risk of syncope. Lifestyle Do not drive, use machinery, or play sports until your health care provider says it is okay. Do not drink alcohol. Do not use any products that contain nicotine or tobacco. These products include cigarettes, chewing tobacco, and vaping devices, such as e-cigarettes. If you need help quitting, ask your health careprovider. Avoid hot tubs and saunas. General instructions Talk with your health care provider about your symptoms. You may need to have testing to understandthe cause of your syncope. Drink enough fluid to keep your urine pale yellow. Avoid prolonged standing. If you must stand for a long time, do movements such as: ?Moving your legs. ?Crossing your legs. ?Flexing and stretching your leg muscles. ?Squatting. Keep all follow-up visits. This is important. Contact a health care provider if: You have episodes of near fainting. Get help right away if: You faint. You hit your head or are injured after fainting. You have any of these symptoms that may indicate trouble with your heart: ?Fast or irregular heartbeats (palpitations). ?Unusual pain in your chest, abdomen, or back. ?Shortness of breath. You have a seizure. You have a severe headache. You are confused. You have vision problems. You have severe weakness or trouble walking. You are bleeding from your mouth or rectum, or you have black or tarry stool. These symptoms may represent a serious problem [...] sudden vision changes, or cold, clammy skin. Even though most causes of syncope are not dangerous, syncope can be a sign of a serious medical problem. Get help right away if you faint. If you start to feel like you might faint, sit or lie down right away. If sitting, put your head down between your legs. If lying down, raise (elevate) your feet above the level of your heart. This information is not intended to replace advice given to you by your health care provider. Make sure you discuss any questions you have with your health care provider. Document Revised: 11/28/2021 Document Reviewed: 11/28/2021 [employer] Patient Education 2023 [employer] Follow Up Care 04/14/2024 20:02:23 With:Fredi Ellington Address: [address] [place] [id number] Business (1) When:04/17/2024 Comments:Return to the emergency room if the syncopal episode recurs or any new symptoms [facility] 09-12-2024 NoteED Patient Education Note Neurology Syncope, Adult Syncope refers to a condition in which a person temporarily loses consciousness. Syncope may also be called fainting or passing out. It is caused by a sudden decrease in blood flow to the brain. Thiscan happen for a variety of reasons. Most causes of syncope are not dangerous. It can be triggered by things such as needle sticks, seeing blood, pain, or intense emotion. However, syncope can also be a sign of a serious medical problem, such as a heart abnormality. Other causes can include dehydration, migraines, or taking medicines that lower blood pressure. Your health care provider may do tests to find the reason why you are having syncope. If you faint, get medical help right away. Call your local emergency services (911 in the [place] Follow these instructions at home: Pay attention to any changes in your symptoms. Take these actions to stay safe and to help relieve your symptoms: Knowing when you may be about to faint ? Signs that you may be about to faint include: ? Feeling dizzy, weak, light-headed, or like the room is spinning. ? Feeling nauseous. ? Seeing spots or seeing all white or all black in your field of vision. ? Having cold, clammy skin or feeling warm and sweaty. ? Hearing ringing in the ears (tinnitus). ? If you start to feel like you might faint, sit or lie down right away. If sitting, put your head down between your legs. If lying down, raise (elevate) your feet above the level of your heart. ? Breathe deeply and steadily. Wait until all the symptoms have passed. ? Have someone stay with you until you feel stable. Medicines ? Take ncuh-kvf-hjkublz and prescription medicines only as told by your health care provider. ? If you are taking blood pressure or heart medicine, get up slowly and take several minutes to sitand then stand. This can reduce dizziness and decrease the risk of syncope. Lifestyle ? Do not drive, use machinery, or play sports until your health care provider says it is okay. ? Do not drink alcohol. ? Do not use any products that contain nicotine or tobacco. These products include cigarettes, chewing tobacco, and vaping devices, such as e-cigarettes. If you need help quitting, ask your health care provider. ? Avoid hot tubs and saunas. General instructions ? Talk with your health care provider about your symptoms. You may need to have testing to understand the cause of your syncope. ? Drink enough fluid to keep your urine pale yellow. ? Avoid prolonged standing. If you must stand for a long time, do movements such as: ? Moving your legs. ? Crossing your legs. ? Flexing and stretching your leg muscles. ? Squatting. ? Keep all follow-up visits. This is important. Contact a health care provider if: ? You have episodes of near fainting. Get help right away if: ? You faint. ? You hit your head or are injured after fainting. ? You have any of these symptoms that may indicate trouble with your heart: ? Fast or irregular heartbeats (palpitations). ? Unusual pain in your chest, abdomen, or back. ? Shortness of breath. ? You have a seizure. ? You have a severe headache. ? You are confused. ? You have vision problems. ? You have severe weakness or trouble walking. ? You are bleeding from your mouth or rectum, or you have black or tarry stool. These symptoms may represent a serious problem that is an emergency. Do not wait to see if your symptoms will go away. Get medical help right away. Call your local emergency services (911 in the [place] Do not drive yourself to the hospital. Summary ? Syncope refers to a condition in which a person temporarily loses consciousness. Syncope may alsobe called fainting or passing out. It is caused by a sudden decrease in blood flow to the brain. ? Signs that you may be about to faint include dizziness, feeling light-headed, feeling nauseous, sudden vision changes, or cold, clammy skin. ? Even though most causes of syncope are not dangerous, syncope can be a sign of a serious medical problem. Get help right away if you faint. ? If you start to feel like you might faint, sit or lie down right away. If sitting, put your head down between your legs. If lying down, raise (elevate) your feet above the level of your heart. This information is not intended to replace advice given to you by your health care provider. Make sure you discuss any questions you have with your health care provider. Document Revised: 11/28/2021 Document Reviewed: 11/28/2021 [employer] Patient Education ? 2023 [employer].[facility] 04-14-2024 Evaluation + Plan noteExtracted from: Title:ED Note Author:Migue Farrell M.D. te:04/14/24 1. Syncope (R55: Syncope and collapse) Orders: Basic Metabolic Panel CBC w/ Auto Diff CT Head or Brain w/o Contrast Drug Screen Urine ED Cardiac Monitoring eGFR Hepatic Function Panel Magnesium Level Oxygen Saturation Oxygen Therapy PT & PTT Rapid COVID Antigen ([facility]) Saline Lock Insert Troponin 0 Hr. Troponin 1 Hr. U Beta Hcg Qual UA with Cult Rflx XR Chest 2 Views Future Appointments Appointment Date:04/25/2024 01:15:00 PM Scheduled Provider:Zenon Hernandez MD Location:[facility] Appointment Type:[facility] Follow Up [facility] 09-08-2024 Evaluation + Plan noteExtracted from: Title:ED Note Author:Ko Draper DO Date :04/10/24 Syncope (R55: Syncope and co llapse) Orders: Sodium Chloride 0.9% intravenous solution 1,000 mL, 1,000 mL, IV, 983.61 mL/hr, for 30 day(s), Stop date 05/10/24 4:43:00 EDT, STAT, Start date 04/10/24 4:44:00 EDT, 61 minute(s), Total volume (mL): 1,000, 117 kg, 2.35, m2 Basic Metabolic Panel Beta hCG Qual CBC w/ Auto Diff ECG 12 Lead Adult eGFR Magnesium Level Troponin 0 Hr. Future Appointments Appointment Date:04/25/2024 01:15:00 PM Scheduled Provider:Zenon Hernandez MD Location:[facility] Appointment Type:[facility] Follow Up [facility] 09-08-2024 Hospital Discharge instructions Patient Education 04/10/2024 06:46:15 Syncope, Adult, Cmbd-st-Bqcs Syncope, Adult Syncope is when you pass out or faint for a short time. It is caused by a sudden decrease in blood flow to the brain. This can happen for many reasons. It can sometimes happen when seeing blood, getting a shot (injection), or having pain or strong emotions. Most causes of fainting are not dangerous, but in some cases it can be a sign of a serious medical problem. If you faint, get help right away. Call your local emergency services (911 in the [place] Follow these instructions at home: Watch for any changes in your symptoms. Take these actions to stay safe and help with your symptoms: Knowing when you may be about to faint Signs that you may be about to faint include: ?Feeling dizzy or light-headed. It may feel like the room is spinning. ?Feeling weak. ?Feeling like you may vomit (nauseous). ?Seeing spots or seeing all white or all black. ?Having cold, clammy skin. ?Feeling warm and sweaty. ?Hearing ringing in the ears. If you start to feel like you might faint, sit or lie down right away. If sitting, lower your head down between your legs. If lying down, raise (elevate) your feet above the level of your heart. ?Breathe deeply and steadily. Wait until all of the symptoms are gone. ?Have someone stay with you until you feel better. Medicines Take vzvp-eza-vmtwnwg and prescription medicines only as told by your doctor. If you are taking blood pressure or heart medicine, sit up and stand up slowly. Spend a few minutesgetting ready to sit and then stand. This can help you feel less dizzy. Lifestyle Do not drive, use machinery, or play sports until your doctor says it is okay. Do not drink alcohol. Do not smoke or use any products that contain nicotine or tobacco. If you need help quitting, ask your doctor. Avoid hot tubs and saunas. General instructions Talk with your doctor about your symptoms. You may need to have testing to help find the cause. Drink enough fluid to keep your pee (urine) pale yellow. Avoid standing for a long time. If you must stand for a long time, do movements such as: ?Moving your legs. ?Crossing your legs. ?Flexing and stretching your leg muscles. ?Squatting. Keep all follow-up visits. Contact a doctor if: You have episodes of near fainting. Get help right away if: You pass out or faint. You hit your head or are injured after fainting. You have any of these symptoms: ?Fast or uneven heartbeats (palpitations). ?Pain in your chest, belly, or back. ?Shortness of breath. You have jerky movements that you cannot control (seizure). You have a very bad headache. You are confused. You have problems with how you see (vision). You are very weak. You have trouble walking. You are bleeding from your mouth or your butt (rectum). You have black or tarry poop (stool). These symptoms may be an emergency. Get help right away. Call your local emergency services (911 inthe [place] Do not wait to see if the symptoms will go away. Do not drive yourself to the hospital. Summary Syncope is when you pass out or faint for a short time. It is caused by a sudden decrease in blood flow to the brain. Signs that you may be about to faint include feeling dizzy or light-headed, feeling like you may vomit, seeing all white or all black, or having cold, clammy skin. If you start to feel like you might faint, sit or lie down right away. Lower your head if sitting, or raise (elevate) your feet if lying down. Breathe deeply and steadily. Wait until all of the symptoms are gone. This information is not intended to replace advice given to you by your health care provider. Make sure you discuss any questions you have with your health care provider. Document Revised: 11/28/2021 Document Reviewed: 11/28/2021 [employer] Patient Education 2023 [employer]. Follow Up Care 04/10/2024 04:30:28 With:Fredi Rakel Address: [address] [place], [place] [id number] Business (1) When:04/13/2024 06:31:35 Comments:Follow-up with your primary care doctor for further evaluation and management. Please return to theED for any new or worsening symptoms. [facility] 09-08-2024 NoteED Patient Education Note Neurology Syncope, Adult Syncope is when you pass out or faint for a short time. It is caused by a sudden decrease in blood flow to the brain. This can happen for many reasons. It can sometimes happen when seeing blood, getting a shot (injection), or having pain or strong emotions. Most causes of fainting are not dangerous, but in some cases it can be a sign of a serious medical problem. If you faint, get help right away. Call your local emergency services (911 in the [place] Follow these instructions at home: Watch for any changes in your symptoms. Take these actions to stay safe and help with your symptoms: Knowing when you may be about to faint ? Signs that you may be about to faint include: ? Feeling dizzy or light-headed. It may feel like the room is spinning. ? Feeling weak. ? Feeling like you may vomit (nauseous). ? Seeing spots or seeing all white or all black. ? Having cold, clammy skin. ? Feeling warm and sweaty. ? Hearing ringing in the ears. ? If you start to feel like you might faint, sit or lie down right away. If sitting, lower your head down between your legs. If lying down, raise (elevate) your feet above the level of your heart. ? Breathe deeply and steadily. Wait until all of the symptoms are gone. ? Have someone stay with you until you feel better. Medicines ? Take wvzm-cnn-ejyrvjc and prescription medicines only as told by your doctor. ? If you are taking blood pressure or heart medicine, sit up and stand up slowly. Spend a few minutes getting ready to sit and then stand. This can help you feel less dizzy. Lifestyle ? Do not drive, use machinery, or play sports until your doctor says it is okay. ? Do not drink alcohol. ? Do not smoke or use any products that contain nicotine or tobacco. If you need help quitting, askyour doctor. ? Avoid hot tubs and saunas. General instructions ? Talk with your doctor about your symptoms. You may need to have testing to help find the cause. ? Drink enough fluid to keep your pee (urine) pale yellow. ? Avoid standing for a long time. If you must stand for a long time, do movements such as: ? Moving your legs. ? Crossing your legs. ? Flexing and stretching your leg muscles. ? Squatting. ? Keep all follow-up visits. Contact a doctor if: ? You have episodes of near fainting. Get help right away if: ? You pass out or faint. ? You hit your head or are injured after fainting. ? You have any of these symptoms: ? Fast or uneven heartbeats (palpitations). ? Pain in your chest, belly, or back. ? Shortness of breath. ? You have jerky movements that you cannot control (seizure). ? You have a very bad headache. ? You are confused. ? You have problems with how you see (vision). ? You are very weak. ? You have trouble walking. ? You are bleeding from your mouth or your butt (rectum). ? You have black or tarry poop (stool). These symptoms may be an emergency. Get help right away. Call your local emergency services (665 inthe [place] ? Do not wait to see if the symptoms will go away. ? Do not drive yourself to the hospital. Summary ? Syncope is when you pass out or faint for a short time. It is caused by a sudden decrease in blood flow to the brain. ? Signs that you may be about to faint include feeling dizzy or light-headed, feeling like you may vomit, seeing all white or all black, or having cold, clammy skin. ? If you start to feel like you might faint, sit or lie down right away. Lower your head if sitting, or raise (elevate) your feet if lying down. Breathe deeply and steadily. Wait until all of the symptoms are gone. This information is not intended to replace advice given to you by your health care provider. Make sure you discuss any questions you have with your health care provider. Document Revised: 11/28/2021 Document Reviewed: 11/28/2021 [employer] Patient Education ? 2023 [employer].[facility] 03-15-2024 Hospital Discharge instructions Patient Education 03/15/2024 01:10:59 Suicidal Feelings: How to Help Yourself Suicidal [...] services (911 in the [place] Call the Community [facility] and human services helpline (211 in the [place] Call or text a suicide hotline to speak with a trained counselor. The following suicide hotlines are available in the [place]: ?7-207-208-TALK ( or 988 in the [place] ?0-892-CLCDAIQ ( ). ?Text 467493. This is the Crisis Text Line in the [place] ? . This is a hotline for [place] speakers. ? . This is a hotline for TTY users. ?7-707-0-U-ELIZA ( ). This is a hotline for lesbian, schultz, bisexual, transgender, or questioning youth. ?For a list of hotlines in [place], visit suicide.org/hotlines/international/nhzpqn-bylytsx-xirjixfm.html Contact a crisis center or a local [...] list of crisis centers in [place], visit: suicideprevention.ks How to help yourself feel better Promise [...] to anyone or being with other people. ?Zolc-he-oged conversation is best to help them understand [...] physical and a mental health checkup. Take fmcc-lra-hbvbzoc and prescription medicines only as told by [...] National Suicide Prevention Lifeline: www.suicidepreventionlifeline.org Hopeline: www.hopeline.com [employer] for Suicide Prevention: www.afsp.org The Eliza Project (for lesbian, schultz, bisexual, transgender, or questioning youth): www.thetrevorproject.org National [employer] of Mental Health: www.nimh.nih.gov/health/topics/suicide-prevention Suicide Prevention Resources: afsp.org/wlypmmg-mwhcfpboog-gmuhhvvgr Contact a health care provider if: You [...] provider. Document Revised: 02/13/2022 Document Reviewed: 11/28/2021 [employer] Patient Education 2022 [employer]. Follow Up Care 03/14/2024 21:07:34 With:[facility] Address:Unknown When:03/16/2024 With:Fredi Ellington Address: [facility] [place] [address]- Business (1) When:Within 3 Day(s) [facility] 08-13-2024 NoteED Patient Education Note Mental and Behavioral Health [...] life,get help right away. To get help: ? Go to your nearest emergency department. ? Call your local emergency services (911 in the [place] ? Call the Community Health and human services helpline (211 in the [place] ? Call or text a suicide hotline to speak with a trained counselor. The following suicide hotlines are available in the [place]: ? 4-455-231-TALK ( or 360 in the [place] ? 9-539-FGHYQKK ( ). ? Text 369016. This is the Crisis Text Line in the [place] ? . This is a hotline for [place] speakers. ? . This is a hotline for TTY users. ? 9-031-5-U-ELIZA ( ). This is a hotline for lesbian, schultz, bisexual, transgender, or questioning youth. ? For a list of hotlines in [place], visit suicide.org/hotlines/international/bhnbmi-lrzfrgh-tovofirs.html ? Contact a crisis center or a [...] anyone or being with other people. ? Pcml-yl-tngk conversation is best to help them understand [...] medicine to someone who can give it toyou as prescribed. ? If you are on antidepressants and are concerned you will overdose, tell your health care providerso that he or she can give you [...] and a mental health checkup. ? Take qtqc-hni-liiiddx and prescription medicines only as told by your health care provider. ? Ask your health care provider about the possible side effects of any medicines you are taking. ? Ask your health care provider about whether suicidal ideation is a possible side effect of any ofyour medicines. ? Learn about suicidal ideation and [...] with help. Conditions can be treated, and youcan learn behaviors and wa (more content not included)... [facility]08-12-2024 Evaluation + Plan noteExtracted from: Title:ED Note Author:Han Bolaños DO Date :03/14/24 Ibuprofen overdose (T39.311A : Poisoning by propionic acid derivatives, accidental (unintentional), initial encounter) Orders: Acetaminophen Level CBC w/ Auto Diff Communication Order Comprehensive Metabolic Panel Consult to Mental Health Drug Screen Urine ECG 12 Lead Adult eGFR Ethanol Level Salicylate Level U Beta Hcg Qual UA with Cult Rflx Urine Culture Future Appointments Appointment Date:03/31/2024 10:15:00 AM Scheduled Provider:David MARCANO, Zenon Ratliff Location:[facility] Health Appointment Type:[facility] Follow Up [facility] 07-16-2024 Evaluation + Plan note Future Scheduled Tests Radiology* CT Abdomen w/ Contrast 02/16/24 [facility]06-21-2024 Evaluation + Plan note Future Scheduled Tests Radiology* CT Abdomen w/ Contrast 01/22/24 [facility] 06-12-2024 Hospital Discharge instructions Patient Education 01/13/2024 20:49:15 Acute Pancreatitis, Tsoa-rw-Jlst Acute Pancreatitis Acute pancreatitis happens when there [...] may be very bad. It often gets worseafter you eat. A tender and swollen belly. [...] Follow these instructions at home: Medicines Take fffj-vcy-gconouf and prescription medicines only as told by [...] the symptoms will go away. Get help rightaway. Call 911. Summary Acute pancreatitis happens when [...] provider. Document Revised: 06/10/2022 Document Reviewed: 06/10/2022 [employer] Patient Education 2022 [employer]. Follow Up Care 01/13/2024 18:23:07 With:Zenon Hernandez Address: [address] [address] [phone] Business (1) When:01/16/2024 20:48:55 Comments:Call to schedule an appointment with the regional branch manager for further management of care With:Fredi Ellington Address: [address] [place] [address] [place] [address]- Business (1) When:Within 3 Day(s) [facility]06-11-2024 Hospital Discharge instructions Patient Education 01/12/2024 17:04:35 Full Liquid Diet Full Liquid Diet A full liquid diet refers to fluids and foods that are liquid, or will become liquid, at room temperature. This diet should only be used for a short period of time to help you recover from illness orsurgery. Your health care provider or dietitian will [...] at room temperature. The food is considered aliquid if it can be poured off a [...] Canola, almond, avocado, corn, grapeseed, sunflower, and sesameoils. Gravy. Beverages Water. Coffee and tea (caffeinated or decaffeinated). Jasper. Liquid nutritional supplements. Soft drinks. Nondairy milks, such as almond, coconut, rice, or soy milk. Sweets and desserts Custard. Pudding. Flavored gelatin. Smooth ice cream (without nuts or candy pieces). Sherbet. Frozen ice pops. Bhutanese ice. Pudding pops. Seasonings and condiments Salt and pepper. Spices. Vinegar. Ketchup. Yellow mustard. Smooth sauces, such as Hollandaise, cheese sauce, or white sauce. Soy sauce. Syrup. Honey. Jelly (without fruit pieces). Other foods Jasper powder. Cream soups. Strained soups. The items [...] soy protein. Nuts and nut butters. Precooked orcured meat, such as sausages or meat loaves. [...] provider. Document Revised: 05/07/2021 Document Reviewed: 05/07/2021 [employer] Patient Education 2022 [employer]. 01/12/2024 16:42:34 Nausea, Adult, Mvpj-wh-Ubar Nausea, Adult Nausea is feeling like you may vomit. Feeling like you may vomit is usually not serious, but it maybe an early sign of a more serious [...] fruit juice). ?Low-calorie sports drinks. Eat bland, kemb-ro-qqxsop foods in small amounts as you are able, such as: ?Bananas. ?Applesauce. ?Rice. ?Low-fat (lean) meats. ?[place]. ?Crackers. Avoid drinking fluids that have a lot of sugar or caffeine in them. This includes energy drinks, sports drinks, and soda. Avoid alcohol. Avoid spicy or fatty foods. General instructions Take fjcf-xjd-hrofblg and prescription medicines only as told by [...] cannot use soap and water, use hand digital content specialist. Make sure that everyone in your [...] drink what your doctor tells you. Take khll-xvi-uywkedv and prescription medicines only as told by your doctor. Contact a doctor right away if your symptoms get worse or you have new symptoms. Keep all follow-up visits. This information is not intended to replace advice given to you by your health care provider. Make sure you discuss any questions you have with your health care provider. Document Revised: 01/24/2022 Document Reviewed: 01/24/2022 [employer] Patient Education 2022 [employer]. 01/12/2024 16:42:31 Abdominal Pain, Adult, Qfsz-rp-Knqm Abdominal Pain, Adult Many things can cause belly (abdominal) pain. Most times, belly pain is not dangerous. Many cases of belly pain can be watched and treated at home. Sometimes, though, belly pain is serious. Your doctor will try to find the cause of your belly pain. Follow these instructions at home: Medicines Take zndj-qvm-ekfxevl and prescription medicines only as told by [...] your belly pain for any changes. Take bsyp-jtz-uphljnl and prescription medicines only as told by [...] provider. Document Revised: 11/28/2019 Document Reviewed: 11/28/2019 [employer] Patient Education 2022 [employer]. Follow Up Care 01/12/2024 14:44:40 With:Fredi Ellington MD Address: [address] [place] [address]- When:01/15/2024 [facility]11-28-2023 History of Present illness Narrative* Valorie Hansen MD - 06/30/2023 2:00 PM EST Referring Provider: Fredi Ellington MD Reason for Consultation: Rose Mary [...] breast reduction surgery. Her current bra cup sizeis H. She has been wearing this bra for multiple years. She has been considering surgical breast reduction for due to significant problems with upper back and shoulder pain. She has tried conservative measures such as supportive bras, heat and ice and massage. The supportive measures have been ineffective. Patient complains of the following symptoms that shefeels are related to the size, weight and [...] minimize her perioperative risk. documented in this [facility]10-23-2023 NoteAdmission and Discharge Information Admit Date/Time:05/11/2023 07:29 Admitting Physician - Akosua LR MD Referring Physician - PEYTON QUIROZ CNP [...] 46.4 % Lymph Auto - 41.3 % Gosper Auto - 8.8 % Eos Auto - 3.1 % Basophil Auto - 0.4 % Neutro Absolute - 2.6 E9/L Lymph Absolute - 2.3 E9/L Gosper Absolute - 0.5 E9/L Eos Absolute - 0.2 E9/L Basophil Absolute - 0.0 E9/L Capillary Glucose POC (05/12/2023) Glucose Cap - 84 mg/dL POC Device SN - [id number] POC User ID - [id number] POC Username - NERY ALCALA CBC w/ [...] Follow-up With When Contact Information Joann Zamorano [address] [phone]- Business (1) Additional Instructions: Call for hospital followup appointment 2-3 weeks Fredi Ellington [address] [facility] [place] [address]- Business (1) Additional Instructions: Call for followup appointment Patient Education Seizure, [facility]:Result Comment: Electronically Signed By: Shazia NUNES\.br\Date and Time Signed: 05/24/23 18:49 EDT\.br\Electronically Co-Signed By: Akosua LR MD\.br\Date and Time Co-Signed: 05/25/2307:00 [id number] Hospital Discharge instructions Patient Education 05/13/2023 12:04:21 [...] This type of seizure causes tightening (contraction) ofthe muscles of the whole body and loss [...] activity in the brain. An EEG can predictwhether seizures will return. A spinal tap, also [...] happen, if you have epilepsy that does notrespond to medicines. A diet low in carbohydrates and high in fat (ketogenic diet). Follow these instructions at home: Medicines Take sszl-vqe-uaqwyvy and prescription medicines only as told by [...] of motor vehicles (DMV) to find out aboutlocal driving laws. Each state has specific rules [...] low levels of blood sugar or salt, andcertain conditions. Most seizures will stop on their own in less than 5 minutes. Seizures that last longer than 5 minutes are a medical emergency and need treatment right away. Many medicines are used to treat seizures. Take cgvb-abu-fhnuurl and prescription medicines only astold by your health care provider. This information is not intended to replace advice given to you by your health care provider. Make sure you discuss any questions you have with your health care provider. Document Revised: 01/25/2021 Document Reviewed: 01/25/2021 [employer] Patient Education 2022 [employer] Follow Up Care 04/22/2023 12:48:03 With:Joann Zamorano Address: [address] [phone]- Business (1) When: Unknown Comments:Call for hospital followup appointment 2-3 weeks With:Fredi Ellington Address: [facility] [facility] [place] [address]- Business (1) When: Unknown Comments:Call for followup appointment [facility]10-11-2023 Evaluation + Plan noteExtracted from: Title:APSO Note-neurology Author:George Tidwell RN Date:05/13/23 [...] date 05/11/23 16:03:00 EDT, 05/11/23 16:03:00 EDT [facility] [place], lurasidone 60 mg oral tablet, Oral, [...] Extracted from: Title:Consult Note-neurology Author:Jonelle Tidwell RN ichole Date:05/11/23 The patient is an 17-year-ol [...] on the hospitalization course and therapeutic plan. [facility]10-10-2023 NoteChief Complaint LTME Reason for Consultation LTME [...] sensation in all 4 extremities Cerebellar exam: Hldrtx-vg-awfz reveals no ataxia. Gait is normal Assessment/Plan [...] 12/04/2021 Immunizations Vaccine Date Status SARS-CoV-2 (COVID-19) [id number].ORD![id number] 10/03/2022 Recorded meningococcal group B vaccine 07/31/2022 [...] hepatitis A pediatric vaccine (more content not included)...[facility]Result Comment: Electronically Signed By: [...] sensation in all 4 extremities. Cerebellar exam: Zagxqp-qr-vfgb reveals no ataxia. Gait is normal. Assessment/Plan [...] 12/04/2021 Immunizations Vaccine Date Status SARS-CoV-2 (COVID-19) mRNAMUL.ORD![id number] 10/03/2022 Recorded meningococcal group B vaccine 07/31/2022 [...] 05/28/2005 Recorded haemophilus b (more content not included)...[facility]:Result Comment: Electronically Signed By: Riya Tidwell RN\.br\Date and Time Signed: 05/11/23 09:39 EDT\.br\Electronically Co-Signed By: Melecio Rubio MD\.br\Date and Time Co-Signed: 05/12/23 08:36 [id number] NoteBasic Information Admit Date/Time:05/11/2023 07:29 Chief Complaint [...] reviewed and are negative or noncontributory. Scoring Rooeny Fall Risk Score: 15 (05/11/23) Physical Exam [...] date 05/11/23 16:03:00 EDT, 05/11/23 16:03:00 EDT [facility] [place], lurasidone 60 mg oral tablet, Oral, [...] agreement with POC. P (more content not included)...[facility]: Result Comment: Electronically Signed By: Alicia Sidhu\.br\Date and Time Signed: 05/11/23 20:00 EDT\.br\Electronically Co-Signed By: Akosua RL MD\.br\Date and Time Co-Signed: 05/12/23 06:56 [id number] Hospital Discharge instructions Patient Education 03/16/2023 17:50:47 [...] Follow these instructions at home: Medicines Take weyu-xly-fvkoqqv and prescription medicines only as told by [...] and water are not available, use hand digital content specialist. ?Leave stitches (sutures), skin glue, or [...] provider. Document Revised: 10/24/2021 Document Reviewed: 10/24/2021 [employer] Patient Education 2022 [employer]. 03/16/2023 17:50:47 Head Injury, Adult Head Injury, [...] Ask your health care provider for a ybaf-bh-wwyo plan for gradually returning to activities. Ask [...] your friends, family, a trusted colleague, and tool worker about your injury, symptoms, and restrictions. Have them watch for any new or worsening problems. General instructions Take nfwe-orl-hlhzslw and prescription medicines only as told by [...] provider. Document Revised: 06/01/2020 Document Reviewed: 06/01/2020 [employer] Patient Education 2022 [employer]. Follow Up Care 03/16/2023 16:19:26 With:Fredi Ellington Address: [address] [place], [place] [phone] Business (1) When:03/19/2023 17:36:52 [facility]08-11-2023 Discharge summary Author John Monson [facility] March 13, 2023 9:40am Note Date/Time March 13, 2023 9: 40am [facility] [address] [place] [id number] Discharge Summary Signed Patient: Rose Mary Schneider MR#: [id number] : 2005 Acct:[id number] Age/Sex: 17 / F Adm Date: 3 Loc: Room: [address] [place] [address]: John Monson MD Copies to: MD Fredi Avila MD~ Providers Date of Discharge: 03/13/23 Discharging Provider: John Monson Primary Care Provider: Fredi Ellington Discharge Diagnosis (1) Depression: Final Diagnosis Final Discharge Diagnosis: Major depressive disorder Summary Hospital Course Hospital course: According to admission note: This is a 17-year-old female with reported history of depression and suicidal ideation who presents for inpatient admission due to worsening of suicidal thoughts. Reportedly (per admission note),the patient was pink slipped from [employer] and acknowledged she attempted suicide by [...] No Activity Restrictions Instructions: Depression, Adult (DC), [facility] DC Instructions Prescriptions: Continued levetiracetam [...] 14 Days Qty: 21 0RF Follow Up: [facility] [Outside] [facility] [Outside] (Sees Dr. Mackey.) Joann Zamorano DO [Courtesy/Consulting Physician] - (Contact your neurologist with any needs related to history of seizures. ) Fredi Ellington MD [Primary Care Provider] - (Contact your primary care providerwith any medical needs. ) Documented By: John Monson MD 03/13/23937 Signed By: <Electronically signed by John Monson MD> 03/13/23939 [facility] Work Phone: 1(462) 599-952708-10-2023 Progress note Author John Monson [facility] March 12, 2023 1:37pm Note Date/Time March 12, 2023 1: 37pm [facility] [address] [place] [address] Psychiatry Progress Note Signed Patient: Rose Mary Schneider MR#: [id number] : 2005 Acct:[id number] Age/Sex: 17 / F Adm Date: 3 Loc: Room: [address] [place] [address] Type : ADM IN Attending Dr: John [...] therapy Documented By: John Monson MD 03/12/23 1153 Signed By: <Electronically signed by John Monson MD> 03/12/23 1337 [facility] Work Phone: 1(685) 367-236608-09-2023 History and physical note Author John Monson [facility] March 11, 2023 1:28pm Note Date/Time March 11, 2023 1:2 8pm [facility] [address] [place] [address] Psychiatry H&P Signed Patient: Rose Mary Schneider MR#: [id number] : 2005 Acct:[id number] Age/Sex: 17 / F Adm Date: 3 Loc: 1S Room: 6T5205-0 Type: ADM IN Attending Dr: John Monson MD Copies to: MD Fredi Avila MD~ Date of Service: 03/11/2023 HPI History of Present Illness History of present illness: This is a 17-year-old female with reported history of depression and suicidal ideation who presents for inpatient admission due to worsening of suicidal thoughts. Reportedly (per admission note),the patient was pink slipped from [employer] and acknowledged she attempted suicide by [...] and she stated that she was compliant. [facility] Vaccinated for COVID-19?: Yes Medical History (Updated [...] signed by John Monson MD> 03/11/23 1328 [facility] Work Phone: 1(133) 599-259608-08-2023 Hospital Discharge instructions Patient Education 03/10/2023 12:40:41 [...] services (911 in the [place] Call the Community Health and human services helpline (211 in the [place] Call or text a suicide hotline to speak with a trained counselor. The following suicide hotlines are available in the [place]: ?0-951-131-TALK ( or 243 in the [place] ?2-417-SQVKWPS ( ). ?Text 068990. This is the Crisis Text Line in the [place] ? . This is a hotline for Grenadian speakers. ? . This is a hotline for TTY users. ?5-475-5-U-ELIZA ( ). This is a hotline for lesbian, schultz, bisexual, transgender, or questioning youth. ?For a list of hotlines in [place], visit suicide.org/hotlines/international/mopfff-atmbwye-puexrvfl.html Contact a crisis center or a local [...] to anyone or being with other people. ?Icri-cr-ecpk conversation is best to help them understand [...] physical and a mental health checkup. Take jdni-urk-putoasd and prescription medicines only as told by [...] information National Suicide Prevention Lifeline: www.suicidepreventionlifeline.org Hopeline: www.hopeline.Yi Fang Education [employer] Foundation for Suicide Prevention: www.afsp.org The Eliza Project (for lesbian, schultz, bisexual, transgender, or questioning youth): www.thetrevorproject.org National Carlock of Mental Health: www.nimh.nih.gov/health/topics/suicide-prevention Suicide Prevention Resources: afsp.org/ctthqth-zktgmyevvm-nygnmuhpp Contact a health care provider if: You [...] department or crisis center. Call emergency services (725 in the [place] Call or text a [...] provider. Document Revised: 02/13/2022 Document Reviewed: 11/28/2021 [employer] Patient Education 2022 [employer]. Follow Up Care 03/07/2023 14:09:50 With:Fredi Rakel Address: [address] [place] [address]- Business (1) When: Unknown Comments:Call for followup appointment With:Joann Zamorano DO, [facility] Address: When:2 to 4 weeks [facility]08-08-2023 Evaluation + Plan noteExtracted from: Title:Discharge Note Author:Lawrence Reveles DO Date:03/10/23 stable Discharge To, Anticipated II - Psychiatric Unit Transported by, Anticipated - Family Discharge Diet(s): Regular (03/10/23 11:06:00) Prescriptions No active prescription medications Home FLUoxetine 40 mg Cap Junel Fe 08/22 oral tablet Keppra, BID lurasidone 60 mg oral tablet melatonin-pyridoxine 3 mg-10 mg oral tablet, extended release With When Contact Information Fredi Rakel [address] [place] [phone] Business (1) Additional Instructions: Call for followup [...] this morning are within normal limits Ordered: [facility] Care/Day Moderate 35 Minutes 34442 2. Hypokalemia, (E87.6: Hypokalemia)Hypokalemia Resolved Ordered: [facility] Care/Day Moderate 35 Minutes 44631 2. Suicidal ideation (R45.851: Suicidal ideations) No longer expressing suicidal ideation She was pink slipped yesterday; awaiting MHP Ordered: [facility] Care/Day Moderate 35 Minutes 17435 3. Antihistamines overdose (T45.0X1A: Poisoning by antiallergic and antiemetic drugs, accidental (unintentional), initial encounter) Ordered: [facility] Care/Day Moderate 35 Minutes 31959 5. Depression (F32.A: Depression, unspecified) Continue fluoxetine Ordered: [facility] Care/Day Moderate 35 Minutes 91914 6. Seizure (R56.9: Unspecified convulsions) Continue Keppra, Lamictal and lurasidone Seizure precautions Ordered: [facility] Care/Day Moderate 35 Minutes 44195 7. Obesity (E66.9: Obesity, unspecified) Ordered: [facility] Care/Day Moderate 35 Minutes 89200 8. On deep vein thrombosis (DVT) prophylaxis (Z79.899: Other group home (current) drug therapy) Early ambulation with SCDs Ordered: [facility] Care/Day Moderate 35 Minutes 41820 Orders: Transfer Patient to Transfer Patient to [...] deep vein thrombosis (DVT) prophylaxis (Z79.899: Other group home (current) drug therapy) Early ambulation and SCDs [...] deep vein thrombosis (DVT) prophylaxis (Z79.899: Other group home (current) drug therapy) Extracted from: Title:APSO Note Author:DEBBIE MRACANO, Mbanefo Date: 17-year-old female with history of [...] overdose with Tylenol/diphenhydramine. Secondary to suicide ideation/attempt. home economics extension worker evaluation. Acetaminophen level ekta to 40 but trended down to undetectable. Treating with IVF Thursday. LFTs within normal limit. Repeat LFTs and PT/INR in AM. Ordered: Basic Metabolic Panel Comprehensive Metabolic Panel Consult to Bariatric Surgeon eGFR Extra Lav Tube Hepatic Function Panel [facility] Hospital Care/Day Moderate 35 Minutes 21869 2. Suicidal ideation (R45.851: Suicidal ideations) Supportive care. home economics extension worker evaluation. Mental health evaluation in a.m. once medically stable. Ordered: Consult to Bariatric Surgeon [facility] Care/Day Moderate 35 Minutes 35212 3. Antihistamines overdose (T45.0X1A: Poisoning by antiallergic and antiemetic drugs, accidental (unintentional), initial encounter) Treated with charcoal. Respiratory status and circulation currently stable. Treated with IV fluid. Bladder scan so far not retaining urine. Ordered: [facility] Care/Day Moderate 35 Minutes 69023 4. Hypokalemia (E87.6: Hypokalemia) Secondary to gastrointestinal loss and IV fluid. We will replace orally. Ordered: potassium chloride, 40 mEq = 2 tab(s), Tab-ER, Oral, BID for 2 dose(s), Stop date 03/09/23 8:59:00 EDT, Routine, Start date 03/08/23 9:00:00 EDT, 03/08/23 8:36:00 EDT Comprehensive Metabolic Panel [facility] Care/Day Moderate 35 Minutes 50354 5. Depression (F32.A: Depression, unspecified) On fluoxetine. Ordered: [facility] Care/Day Moderate 35 Minutes 56587 6. Seizure (R56.9: Unspecified convulsions) No reported seizure. On Lamictal and Keppra. Ordered: lorazepam, 1 mg = 0.5 mL, Injection, IV Push, QID PRN Seizure, Routine, Start date 03/07/23 18:04:00 EDT 7. Obesity (E66.9: Obesity, unspecified) Recommend therapeutic lifestyle modification changes. 8. On deep vein thrombosis (DVT) prophylaxis (Z79.899: Other incident response lead (current) drug therapy) SCDs. Disposition: Pending mental health evaluation in AM. I discussed the diagnosis and plan of care with the patient at the bedside. Moderate level of MDM based on addressing above issues. This documentation was transcribed using voice recognition software. Several attempts were made to ensure accuracy. However inadvertent computerized director heart errors may be present. Jennifer Retana. Hospitalist. [...] observation. Ordered: Basic Metabolic Panel Consult to Bariatric Surgeon Hepatic Function Panel Initial Hospital Care/Day High 75 Minutes 68476 2. Suicidal ideation (R45.851: Suicidal ideations) Supportive care. Social work evaluation. Mental health evaluation once medically stable. Ordered: Consult to Bariatric Surgeon Initial Hospital Care/Day High 75 Minutes 54982 3. Antihistamines overdose (T45.0X1A: Poisoning by antiallergic and antiemetic drugs, accidental (unintentional), initial encounter) Treated with charcoal. Currently sedated with secured and circulation stable. Monitor patient with end-tidal CO2 monitor. We will observe for delirium/agitation and may treat with physostigmine. Bladder scan every 6 hours to check for urinary retention. Ordered: Initial Hospital Care/Day High 75 Minutes 62248 4. Depression (F32.A: Depression, unspecified) On fluoxetine at home. Ordered: Initial Hospital Care/Day High 75 Minutes 19528 5. Seizure (R56.9: Unspecified convulsions) On Keppra and Lamictal. Ordered: lorazepam, 1 mg = 0.5 mL, Injection, IV Push, QID PRN Seizure, Routine, Start date 03/07/23 18:04:00 EDT, 03/07/23 18:04:00 EDT Initial Hospital Care/Day High 75 Minutes 76918 6. Obesity (E66.9: Obesity, unspecified) Recommend therapeutic lifestyle modification changes. 7. On deep vein thrombosis (DVT) prophylaxis (Z79.899: Other incident response lead (current) drug therapy) SCDs. Disposition: The patient [...] made to ensure accuracy. However inadvertent computerized director heart errors may be present. Jennifer Retana. Hospitalist. [...] Continuous Salicylate Level XR Chest Single View [facility]08-08-2023 NoteAdmission and Discharge Information Admit Date/Time:03/08/2023 17:43 Admitting Physician - Orlando Wade DO Consulting Physician - Melecio Rubio MD Admitting Diagnoses: 1. Poisoning by 4-Aminophenol derivatives, intentional self-harm, initial encounter, 03/09/2023 2. Hypokalemia, 03/09/2023 Discharge Order Date Discharge Patient - Ordered -- 03/10/23 12:22:00 EDT, [address] Discharge Diagnoses 1. Intentional acetaminophen overdose, [...] the setting of OD, Consult and Co-manage Bariatric Surgeon Consult - Completed -- 03/07/23 17:58:00 EDT, [...] 60.3 % Lymph Auto - 28.7 % Gosper Auto - 8.6 % Eos Auto - 1.9 % Basophil Auto - 0.5 % Neutro Absolute - 4.1 E9/L Lymph Absolute - 2.0 E9/L Gosper Absolute - 0.6 E9/L Eos Absolute - [...] - 7.2 gm/dL A (more content not included)...[facility] HospitalComment on above: Result Comment: Electronically Signed By: Lawrence Reveles DO\Date and Time Signed: 03/10/23 12:27 [id number] NoteCRM entered the room to discuss dc planning. PCP, DME and insurance discussed. Patient is alert andinvolved in plan of care. Contact information provided and whiteboard updated. CRM spoke to pt and mother about pink slip. Pt is agreeable to inpt psych stay. Pending [facility] eval and bed. [place] slip willexp at 2pm. SW is following up. Ant dc 03/10. CRM to follow. [facility] will facilitate transport.[facility] HospitalComment on above:Result Comment: Electronically Signed By: Peyton Mccarty\Date and Time Signed: 03/10/23 12:11 [id number] NoteChief Complaint I over dose of tylenol [...] deep vein thrombosis (DVT) prophylaxis (Z79.899: Other incident response lead (current) drug therapy) Problem List/Past Medical History [...] 12/04/2021 Immunizations Vaccine Date Status SARS-CoV-2 (COVID-19) [id number] 10/03/2022 Recorded (more content not included)...[facility] HospitalComment on above:Result Comment: Electronically Signed By: Irene Harding RN\.br\Date and Time Signed: 03/09/23 11:35 EDT\.br\Electronically Co-Signed By: Daniel Reaves DO\.br\Date and Time Co-Signed: 03/09/23 11:52 [id number] Note13:50: Nursing requested patient evaluation at bedside, [...] po bid. EEG ordered, will be completed tomorrowUnc Health Lenoirer [facility] CenterComment on above: Result Comment: Electronically Signed By: ADELINE MARCANO, Akosua\.br\Date and Time Signed: 03/08/23 16:06 [id number] NoteChief Complaint patient c/o dizziness, lethargy and [...] 100 pills that are in the bottle. [place] very dizzy and sleepy was also having [...] 14:43:00) Lymph Auto: 28.7 % (03/07/23 14:43:00) Gosper Auto: 8.6 % (03/07/23 14:43:00) Eos Auto: 1.9 % (03/07/23 14:43:00) Basophil Auto: 0.5 % (03/07/23 14:43:00) Neutro Absolute: 4.1 E9/L (03/07/23 14:43:00) Lymph Absolute: 2 E9/L (03/07/23 14:43:00) Gosper Absolute: 0.6 E9/L (03/07/23 14:43:00) Eos Absolute: [...] (03/07/23 14:43:00) Bili I (more content not included)...[facility] HospitalComment on above:Result Comment: Electronically Signed By: DEBBIE MARCANO, Jennifer\.br\Date and Time Signed: 03/07/23 18:12 [id number] Hospital Discharge instructions Patient Education 11/13/2022 18:45:15 [...] emergency services (911 in the [place] The [facility] and human services helpline (211 in the [place] Go to your nearest emergency department. Call a suicide hotline to speak with a trained counselor. The following suicide hotlines are available in the [place]: ?2-704-391-TALK ( ). ?0-810-FDJJIWD ( ). ? . This is a hotline for Grenadian speakers. ? . This is a hotline for TTY users. ?6-936-6-U-ELIZA ( ). This is a hotline for lesbian, schultz, bisexual, transgender, or questioning youth. ?For a list of hotlines in [place], visit www.suicide.org/hotlines/international/gplaaz-pxjxtrh-yehkjkjs.html Contact a crisis center or a local [...] list of crisis centers in [place], visit: suicideprevention.ks How to help yourself feel better Promise [...] day, even if you do notfeel sociable. Wpwr-rs-vqkh conversation is best to help them understand [...] day can help you feel better. Take ospf-thg-yhetkzt and prescription medicines only as told by [...] National Suicide Prevention Lifeline: www.suicidepreventionlifeline.org Hopeline: www.hopeline.com [employer] Foundation for Suicide Prevention: www.afsp.org The Eliza [...] away. Call emergency services, go to your [facility] or crisis center, or call [...] 2004 Document Revised: 11/10/2019 Document Reviewed: 03/02/2018 [employer] Patient Education 2020 [employer]. Follow Up Care 11/13/2022 13:37:26 With:[facility] Address:Unknown When:11/16/2022 18:44:48 Comments:Return should you have worsening symptoms or feel unsafe. Call 911 or mental health counseling at any time. With:Fredi Ellington Address: [address] [place] [phone]- [place] (1) When:11/16/2022 18:44:44 Comments:Call the office of [...] you develop any new or worsening symptoms. [facility]04-13-2023 Evaluation + Plan noteExtracted from: Title:ED Note Author:Mono GONZALEZ Wilfredo M. Date: Suicidal ideation (R45.851: Suicidal ideations) Orders: Acetaminophen Level Automated Diff Beta hCG Qual CBC w/ Auto Diff Communication Order Comprehensive Metabolic Panel Consult to Mental Health Drug Screen Urine ECG Pediatric Ethanol Level Extra Blue Tube Salicylate Level UA With Cult Reflex [facility]03-11-2023 Hospital Discharge instructions Patient Education 10/11/2022 02:00:07 [...] what your health care provider or the forest fire fighters dispatcher recommends for you. What are the signs [...] Follow these instructions at home: Medicines Take xhia-xgo-qjdkviv and prescription medicines only as told by your health care provider. Avoid any medicines that contain acetaminophen for as long as told by your health care provider. Todo this: ?Check all medicine labels for the presence of acetaminophen. Acetaminophen is found in many syzw-yfz-aglfmau and prescription medicines. These include medicines for [...] the hospital. Call: Your local emergency services (853 in the [place] Your local poison control [...] 05/04/2015 Document Revised: 02/18/2019 Document Reviewed: 02/18/2019 [employer] Patient Education 2020 [employer] Follow Up Care 10/10/2022 21:52:59 With:[facility] Address:Unknown When:10/14/2022 Comments:Please follow-up with your primary care doctor in addition to your counselor in the next 1 to 2 days. Return to the ED for any new or worsening symptoms. With:Fredi Ellington Address: [address] [place], [place] [phone] Business (1) When:10/14/2022 [facility]03-10-2023 Evaluation + Plan noteExtracted from: Title:ED Note [...] ([facility]) Salicylate Level U Beta Hcg Qual [facility]03-06-2023 Evaluation + Plan noteExtracted from: Title:ED Note Author:Han Bolaños DO Date :10/06/22 Syncope (R55: Syncope and co llapse) Orders: Automated Diff Basic Metabolic Panel Capillary Glucose POC CBC w/ Auto Diff ECG Pediatric ED Cardiac Monitoring Oxygen Saturation Oxygen Therapy PT & PTT Saline Lock Insert Troponin 0 Hr. U Beta Hcg Qual UA With Cult Reflex XR Chest Single View [facility]03-06-2023 Hospital Discharge instructions Patient Education 10/06/2022 02:29:09 [...] your urine pale yellow. General instructions Take ipvp-nrv-neanybz and prescription medicines only as told by [...] 07/20/2006 Document Revised: 07/02/2018 Document Reviewed: 06/28/2018 [employer] Patient Education 2020 [employer]. Follow Up Care 10/05/2022 23:50:01 With:Fredi Ellington Address: [address] [place], [place] [phone] Business (1) When:Within 3 Day(s) [facility]12-07-2022 Hospital Discharge instructions Patient Education 07/08/2022 22:30:47 [...] until he or she recovers. Medicines Give gtcc-juv-vdepvpb and prescription medicines only as told by [...] check with your local DMV (department of [employer] to find out about local driving laws. [...] 07/20/2006 Document Revised: 10/07/2019 Document Reviewed: 10/07/2019 [employer] Patient Education 2019 [employer]. Follow Up Care 07/08/2022 18:51:22 With:Fredi Rakel Address: [address] [place], [place] [id number] Business (1) When:07/11/2022 [facility]12-06-2022 Evaluation + Plan note Diagnostic Tests Pending * Rapid COVID Antigen ([facility]) 07/08/22 * Influenza A&B Ag 07/08/22 * Group A Strep by PCR 07/08/22 [facility]12-02-2022 Hospital Discharge instructions Patient Education 07/04/2022 19:27:04 [...] and regular daily exercise. Give your child vuei-wpd-plpxohu and prescription medicines only as told by [...] to find more information Epilepsy Foundation: www.epilepsy.com Armenian Epilepsy Society: www.aesnet.org Contact a health care [...] 10/29/2017 Document Revised: 11/10/2019 Document Reviewed: 10/29/2017 [employer] Patient Education 2020 [employer] 07/04/2022 19:27:04 Non-Epileptic Seizures, Pediatric Non-Epileptic [...] she has a seizure. Give your child blyo-ocs-ojkinjv and prescription medicines only as told by [...] 10/26/2017 Document Revised: 07/02/2018 Document Reviewed: 10/26/2017 [employer] Patient Education 2020 [employer]. Follow Up Care 07/04/2022 18:04:21 With:Joann Zamorano Address: [facility] [address] [place] [id number]- Business (1) When:07/07/2022 19:23:00 With:Fredi Rakel Address: [address] [place] [address] [place] [address]- Business (1) When:07/07/2022 19:22:49 Comments:Follow-up with your primary care provider in 3 to 5 days. If symptoms worsen, do not improve, or new symptoms arise please report back to emergency department for further evaluation. [facility]11-30-2022 Hospital Discharge instructions Patient Education 07/02/2022 16:03:45 [...] she has a seizure. Give your child tijz-bep-yfjyhgt and prescription medicines only as told by [...] 10/26/2017 Document Revised: 07/02/2018 Document Reviewed: 10/26/2017 [employer] Patient Education 2020 [employer]. 07/02/2022 16:03:45 Helping Your Child Manage Non-Epileptic [...] and regular daily exercise. Give your child eekn-vrl-wpesbsl and prescription medicines only as told by [...] to find more information Epilepsy Foundation: www.epilepsy.com Armenian Epilepsy Society: www.aesnet.org Contact a health care [...] 10/29/2017 Document Revised: 11/10/2019 Document Reviewed: 10/29/2017 [employer] Patient Education 2020 [employer]. Follow Up Care 07/02/2022 13:18:31 With:Joann Zamorano Address:Unknown When:07/05/2022 15:30:57 Comments:Follow-up with Dr. Zamorano for further evaluation of your seizure-like activity. With:Fredi Ellington Address: [address] [place], [place] [phone] [facility] (1) When:07/05/2022 15:30:49 Comments:Follow-up with your primary care provider in 3 to 5 days. If symptoms worsen, do not improve, or new symptoms arise please report back to emergency department for further evaluation. [facility]11-30-2022 Evaluation + Plan noteExtracted from: Title:ED Note Author:Alexandru Barajas PA-C te:07/02/22 Seizure-like activity (R56.9 : Unspecified convulsions) Orders: Automated Diff Basic Metabolic Panel CBC w/ Auto Diff [facility] No data available for this section [facility] Future Appointments Appointment Date:02/16/2024 10:30:00 AM Scheduled Provider: Location:.[facility] Appointment Type:US Abdominal/Pelvis (FT) Future Scheduled Tests Radiology* US Gallbladder 02/16/24 * CT Abdomen w/ Contrast 02/16/24 [facility] [place] Evaluation + Plan note Future Appointments Appointment Date:04/07/2024 10:00:00 AM Scheduled Provider:Zenon Hernandez MD Location:[facility] Appointment Type:BAD Follow Up [facility] Evaluation + Plan note Future Appointments Appointment Date:04/25/2024 01:15:00 PM Scheduled Provider:Zenon Hernandez MD Location:[facility] Appointment Type[facility] Follow Up [facility] evaluation noteNo assessment information available [facility] Work Phone: evaluation note* Diagnosis Onset Date Resolution Status Depression acute Suicidal ideations acute [facility] Work Phone: evaluation note* Diagnosis Macromastia- Primary Hypertrophy of breast Thoracic spine pain Pain in thoracic spine [facility] Diagnosis Psychogenic nonepileptic seizure (CMS/HCC)- Primary Mood disorder (CMS/HCC) Unspecified episodic mood disorder Altered mental status, unspecified altered mental status type [facility] Diagnosis Missed menses , unspecified gestational age Encounter for supervision of normal first in first trimester [facility]* Diagnosis 13 weeks gestation of Second trimester state, incidental Nausea and vomiting, unspecified vomiting type [facility]* Diagnosis Screening, , for anatomic survey Encounter for anatomic survey Second trimester state, incidental 18 weeks gestation of Vaginal discharge Leukorrhea, not specified as infective STD exposure [facility]* Diagnosis 17 weeks gestation of Second trimester state, incidental Stomach cramps Abdominal pain, unspecified site Stomach pain Dyspepsia and other specified disorders of function of stomach Nausea and vomiting during [facility]* Diagnosis 22 weeks gestation of Second trimester state, incidental Encounter for follow-up ultrasound of anatomy Diabetes mellitus screening Screening for diabetes mellitus Nausea and vomiting during [facility]* Diagnosis Phlebitis- Primary Phlebitis and thrombophlebitis of unspecified site Second trimester state, incidental 26 weeks gestation of [facility]* Diagnosis Third trimester (HHS-HCC) state, incidental 29 weeks gestation of (HHS-HCC) [facility]* Diagnosis Third trimester (HHS-HCC) state, incidental 32 weeks gestation of (HHS-HCC) size inconsistent with dates (HHS-HCC) [facility]* Diagnosis Third trimester (HHS-HCC) state, incidental 34 weeks gestation of (HHS-HCC) [facility]* Diagnosis Stomach pain- Primary Dyspepsia and other specified disorders of function of stomach Third trimester (HHS-HCC) state, incidental 35 weeks gestation of (HHS-HCC) [facility]* Diagnosis Third trimester (HHS-HCC) state, incidental 36 weeks gestation of (HHS-HCC) [facility]* Diagnosis Third trimester (HHS-HCC) state, incidental 36 weeks gestation of (HHS-HCC) [facility] No data available for this section [facility] Additional Instructions Regular Diet No [facility]: Progress note No data available for this section [facility] Summary Purpose Family History No Family History [...] this section No Family History Records Found No data available [...] ttempt Reason for Visit Depression Suicidal ideations Chief Complaint Admit Date September 09, 2024 1 0:33am Syncope, IUP September 09, 2024 1 1:37am Additional Source Comments INFORMATION SOURCE (unrecogn ized section and content) DATE CREATED AUTHOR 09/20/2018 [facility] DATE CREATED AUTHOR AUTHOR'S ORGANIZ ATION 10/27/2019 [employer] DATE CREATED AUTHOR AUTHOR'S ORGANIZ ATION 11/08/2022 [facility] DATE CREATED AUTHOR AUTHOR'S ORGANIZ ATION 03/11/2023 [facility] DATE CREATED AUTHOR AUTHOR'S ORGANIZ ATION 07/02/2023 [facility] DATE CREATED AUTHOR AUTHOR'S ORGANIZ ATION 01/13/2024 [facility] DATE CREATED AUTHOR AUTHOR'S ORGANIZ ATION 01/15/2024 [facility] DATE CREATED AUTHOR AUTHOR'S ORGANIZ ATION 01/16/2024 [facility] DATE CREATED AUTHOR AUTHOR'S ORGANIZ ATION 02/24/2024 [place] DATE CREATED AUTHOR AUTHOR'S ORGANIZ ATION 03/05/2024 [facility] DATE CREATED AUTHOR AUTHOR'S ORGANIZ ATION 03/09/2024 [facility] DATE CREATED AUTHOR AUTHOR'S ORGANIZ ATION 03/16/2024 [facility] DATE CREATED AUTHOR AUTHOR'S ORGANIZ ATION 03/30/2024 [facility] DATE CREATED AUTHOR AUTHOR'S ORGANIZ ATION 04/11/2024 [facility] DATE CREATED AUTHOR AUTHOR'S ORGANIZ ATION 04/17/2024 [facility] DATE CREATED AUTHOR AUTHOR'S ORGANIZ ATION 04/27/2024 [facility] DATE CREATED AUTHOR AUTHOR'S ORGANIZ ATION 05/24/2024 [facility] DATE CREATED AUTHOR AUTHOR'S ORGANIZ ATION 06/28/2024 [facility] DATE CREATED AUTHOR AUTHOR'S ORGANIZ ATION 08/23/2024 [facility] DATE CREATED AUTHOR AUTHOR'S ORGANIZ ATION 11/10/2024 [facility] DATE CREATED AUTHOR AUTHOR'S ORGANIZ ATION 11/13/2024 [facility] DATE CREATED AUTHOR AUTHOR'S ORGANIZ ATION 01/31/2025 [facility] DATE CREATED AUTHOR AUTHOR'S ORGANIZ ATION 03/11/2025 [facility] Care Team (unrecognized sect ion and content) Team Status: Active Member Role Status Dates Fredi Ellington MD Primary Care Provider Active Team Status: Active Member Role Status Dates Fredi Ellington MD Primary Care Provider Active Start: September 09, 2024 Robson White MD Attending Provider Active Start: September 09, 2024 Team Status: Inactive Member Role Status Dates Fredi Ellignton MD Primary Care Provider Active Start: September 09, 2024 End: September 09, 2024 Jenn Sapp DO Emergency Provider Active Sta rt: September 09, 2024 End: September 09, 2024 Team Status: Inactive Member Role Status Dates Fredi Ellington MD Primary Care Provider, Attending Pr ovider Active Team Status: Inactive Member Role Status Dates Fredi Ellington MD Primary Care Provider Active John oMnson MD Admit Provider, Attending Provider Active [employer] Relationship Specialty Start Date End Date Fredi Ellington MD [address] [place] [address] PCP - General Family Medicine 06/10/23 [employer] Relationship Specialty Start Date End Date Fredi Ellington MD [address] [place] [address] PCP - General Family Medicine 02/08/24 [employer] Relationship Specialty Start Date End Date Fredi Ellington MD [address] [place] [address] PCP - General Family Medicine 02/08/24 [employer] Relationship Specialty Start Date End Date Fredi Ellington MD [address] [place] [address] PCP - General Family Medicine 02/08/24 [employer] Relationship Specialty Start Date End Date Fredi Ellington MD [address] [facility] [place] [address] PCP - General Family Medicine 02/08/24 [employer] Relationship Specialty Start Date End Date Fredi Ellington MD [address] [facility] [place] [address] PCP - General Family Medicine 02/08/24 [employer] Relationship Specialty Start Date End Date Fredi Ellington MD [address] [facility] [place] [address] PCP - General Family Medicine 02/08/24 [employer] Relationship Specialty Start Date End Date Fredi Ellington MD [address] [facility] [place] [address] PCP - General Family Medicine 02/08/24 [employer] Relationship Specialty Start Date End Date Fredi Ellington MD [address] [facility] [place] [address] PCP - General Family Medicine 02/08/24 [employer] Relationship Specialty Start Date End Date Fredi Ellington MD [address] [facility] [place] [address] PCP - General Family Medicine 02/08/24 [employer] Relationship Specialty Start Date End Date Fredi Ellington MD [address] [facility] [place] [address] PCP - General Family Medicine 02/08/24 [employer] Relationship Specialty Start Date End Date Fredi Ellington MD [address] [place] [address] PCP - General Family Medicine 02/08/24 [employer] Relationship Specialty Start Date End Date Fredi Ellington MD [address] [place] [address] PCP - General Family Medicine 02/08/24 [employer] Relationship Specialty Start Date End Date Fredi Ellington MD [address] [place] [address] PCP - General Family Medicine 02/08/24 [employer] Relationship Specialty Start Date End Date Fredi Ellington MD [address] [place] [address] PCP - General Family Medicine 02/08/24 [employer] Relationship Specialty Start Date End Date Fredi Ellington MD [address] [place] [address] PCP - General Family Medicine 02/08/24 Goals (unrecognized section and content) Goals may be documented in a n alternate section Reason for Visit (unrecogniz ed section and content) Reason Comments Breast Reduction Back pain and hard t o get up out of bed Specialty Diagnoses / Procedures Referred By Contac t Referred To Contact Plastic Surgery Diagnoses breast reduction Procedures NEW PATIENT - LYNNETTE Fredi Ellington MD [address] [place] [address] Valorie Hansen MD [address] [place] [id number] Referral ID Status Reason Start Date Expiration Date V isits Requested Visits Authorized [id number] Pending Review 06/30/2023 07/24/2024 1 1 Reason Comments Altered Mental Status Seizures Reason Comments Amenorrhea Reason Comments Routine Visit Reason Comments ER Follow-up Stomach cramping and pain Reason Comments Routine Visit FOR RECORDS PERTAINING TO PATIENTS WHO ARE [...] BE BASED ON THE PRIMARY CLINICAL RECORDS. [facility] [employer] [facility]. provides no warranty or guarantee of the accuracy or completeness of information in this document.
== END 2025-03-15 10:16 | disposition home or self-care (01) ==
LOC: LAB 10:16
PROVIDERS: PCP Family Medicine; Visit Provider Family Medicine
DX: J01.90 Acute sinusitis, unspecified (principal); K52.9 Noninfective gastroenteritis and colitis, unspecified
CPT/HCPCS: 36415; 86615; 87045; 87046; 87427; 87493

== ENCOUNTER 2025-03-15 10:16 | Outpatient (OUT) | payer OTHER, SELFPAY ==
--- OUTSIDE RECORDS SUMMARY | 2025-03-02 10:50 | XMS_ITS | Encounter Summary ---
Author Organization [facility] Address [address] [facility] [place] [address] Care Team Providers Care Insole Buffer Name Role Phone Fredi Mcleod MD Primary Care Provider [phone] Reason for Visit * Reason Comments Routine Visit Encounter Details Date Type Department Care Team (Late st Contact Info) Description 03/02/2025 10:50 AM EDT Routine [facility] [address] [place] [phone] Martina Arrington PA [address] [place], [facility]11 Third trimester ([facility]); 36 weeks gestation of ([facility]) Social History Tobacco Use Types Packs/Day Years Used Date Smoking Tobacco: Never Smokeless Tobacco: Never Alcohol Use Standard Drinks/Week Comments Never 0 (1 standard drink = 0.6 oz pur e alcohol) caffeine: 1-2 cups per day Estimated Date of Delivery Comme nts Yes 03/30/2025 Based on last me nstrual period of 06/23/2024 Sex and Gender Information Value Date Recorded Sex Assigned at Not on file Legal Sex Female 7:00 PM EDT Gender Identity Not on file Sexual Orientation Not on file documented as of this encounter Last Filed Vital Signs Vital Sign Reading Time Taken Comments Blood Pressure 116/72 03/02/2025 11:19 AM EDT Pulse - - Temperature - - Respiratory Rate - - Oxygen Saturation - - Inhaled Oxygen Concentration - - Weight 115 kg (254 lb) 03/02/2025 11:19 AM EDT Height - - Body Mass Index 41 08/11/2024 4:12 PM EST documented in this encounter Progress Notes * MARIE Flores - 03/02/2025 10:50 AM EDT Reason for Appointment: Patient ID: Rose Mary Romeo is a 19 y.o. female who presents for Routine Visit Patient presents today for Return OB appointment. MEDICATIONS Current Outpatient Medications Medication Instructions acetaminophen-codeine (Tylenol w/ Codeine #3) 300-30 MG tablet 1 tablet, Oral, Every 6 hours PRN lurasidone (LATUDA) 20 mg, Daily with evening meal metoclopramide (REGLAN) 10 mg, Oral, 3 times daily before meals, Take 1 tablet by mouth 30 minutes prior to meals 3 times daily as needed for nausea. ondansetron ODT (ZOFRAN-ODT) 4 mg, Oral, Every 6 hours PRN pantoprazole (PROTONIX) 40 mg, Daily before breakfast MV-Min-Fe Fum-FA-DHA ( 1 PO) 1 each, Daily promethazine (Phenergan) 12.5 MG tablet TAKE 1 TABLET (12.5 MG) BY MOUTH EVERY 6 (SIX) HOURS IF NEEDED FOR NAUSEA OR VOMITING ALLERGIES No Known Allergies PROBLEMS Active Ambulatory Problems Diagnosis Date Noted Mood disorder 02/03/2024 Altered mental status 02/03/2024 Psychogenic nonepileptic seizure 02/03/2024 Resolved Ambulatory Problems Diagnosis Date Noted No Resolved Ambulatory Problems Past Medical History: Diagnosis Date Anxiety Asthma (HCC) Depression DMDD (disruptive mood dysregulation disorder) ([facility]) History of being hospitalized 2020 HISTORY PAST MEDICAL HISTORY SOCIAL HISTORY Past Medical History: Diagnosis Date Anxiety Asthma (HCC) Depression DMDD (disruptive mood dysregulation disorder) ([facility]) History of being hospitalized 2020 seizure Social History Tobacco Use Smoking status: Never Smokeless tobacco: Never Substance Use Topics Alcohol use: Never Comment: caffeine: 1-2 cups per day Drug use: Never FAMILY HISTORY Family History Problem Relation Name Age of Onset Allergies Mother Depression Mother Migraines Mother ADD / ADHD Father Allergies Father Allergies Sibling Depression Sibling SURGICAL HISTORY History reviewed. No pertinent surgical history. REVIEW OF SYSTEMS Review of Systems: Review of Systems Constitutional: Negative. HENT: Negative. Eyes: Negative. Respiratory: Negative. Cardiovascular: Negative. Gastrointestinal: Negative. Genitourinary: Negative. Musculoskeletal: Negative. Skin: Negative. Neurological: Negative. All other systems reviewed and are negative. Hematological: Negative. Endocrine: Negative. Allergic/Immunologic: Negative. OBJECTIVE Objective: Physical Exam Constitutional: Appearance: Normal appearance. Genitourinary: Right Adnexa: not tender and no mass present. Left Adnexa: not tender and no mass present. No cervical discharge. Breasts: Breasts are soft. Right: Normal. Left: Normal. HENT: Head: Normocephalic. Nose: Nose normal. Mouth/Throat: Mouth: Mucous membranes are moist. Cardiovascular: Rate and Rhythm: Normal rate. Pulmonary: Effort: Pulmonary effort is normal. Abdominal: General: Bowel sounds are normal. Palpations: Abdomen is soft. Musculoskeletal: General: Normal range of motion. Cervical back: Normal range of motion. Neurological: General: No focal deficit present. Mental Status: She is alert. Skin: General: Skin is warm and dry. Psychiatric: Mood and Affect: Mood normal. Vitals and nursing note reviewed. Exam conducted with a plant maintenance manager present. Vitals: Estimated body mass index is 40.74 kg/m?? as calculated from the following: Height as of 08/11/24: 5' 6 . Weight as of 02/23/25: 252 lb 6.4 oz. BP: Patient's last menstrual period was 06/23/2024. ASSESSMENT & PLAN ICD-10-CM 1. Third trimester ([facility]) Z34.93 POCT urinalysis dipstick manually resulted CULTURE, GROUP B STREP WITH SUSCEPTIBLITY CULTURE, GROUP B STREP WITH SUSCEPTIBLITY 2. 36 weeks gestation of ([facility]) Z3A.36 Patient is doing well but has complaints of being tired and having maternal discomfort due to . Patient verbalized frequent movement and was instructed to perform kick counts three times per day. labor precautions were given, LARC consent was signed/declined, and GBS was obtained. Cervical check was performed and patient is 0cm dilated. Orders Placed This Encounter Procedures CULTURE, GROUP B STREP WITH SUSCEPTIBLITY POCT urinalysis dipstick manually resulted Follow Up: Patient is to return to office in 1 week for routine OB appointment Documented by Tracie Ferrell MA on behalf of: MARIE Flores documented in this encounter Plan of Treatment Upcoming Encounters Date Type Department Care Team (Late st Contact Info) Description 03/15/2025 11:20 AM EDT Routine [facility] [address] [place] [address] Ranjit Zamudio, DO [address] [place], [place] [id number] documented as of this encounter Procedures Procedure Name Priority Date/Time Associated Diagnosis Comments POCT URINALYSIS DIPSTICK Routine 03/02/2025 11:29 AM EDT Third trimester ([facility]) CULTURE, GROUP B STREP WITH SUSCEPTIBLITY Routine 03/02/2025 11:15 AM EDT Third trimester ([facility]) documented in this encounter Results * POCT urinalysis dipstick manually resulted (03/02/2025 11:29 AM EDT) Color, UA Yellow Clarity, UA Clear Glucose, UA Negative Negative - 2000(110) ++++ mg/dL Bilirubin, UA Negative Negative - 4(70) +++ mg/dL Ketones, UA Negative Negative - 160(16) ++++ mg/dL Spec Grav, UA 1.015 1 - 1.03 Blood, UA Negative Negative - 50 Balwinder/mcL pH, UA 6.0 5 - 9 Protein, UA Negative Negative - 2000(20) ++++ mg/dL Urobilinogen, UA 1.0 0.2 - 12 mg/dL Leukocytes, UA Negative Negative - 500+++ Uzair/mcL Nitrite, UA Negative Negative - Positive Urine 03/02/2025 11:2 9 AM EDT us Martina SALAZAR POINT OF CARE TEST ENTER/EDIT OR DERABLES Final Result * CULTURE, GROUP B STREP WITH SUSCEPTIBLITY (03/02/2025 11:15 AM EDT) Swab 03/02/2025 11:1 5 AM EDT us Martina SALAZAR LAB BLOOD ORDERABLES Final Resul t EXTERNAL LAB documented in this encounter Visit Diagnoses Diagnosis Third trimester ([facility]) state, incidental 36 weeks gestation of ([facility]) documented in this encounter Care Teams Insole Buffer Relationship Specialty Start Date End Date Fredi Mcleod MD [address] [place] [address] PCP - General Family Medicine 02/08/24 documented as of this encounter
--- OUTSIDE RECORDS SUMMARY | 2025-03-09 09:20 | XMS_ITS | Encounter Summary ---
Author Organization [facility] Address [address] [place] [address] Care Team Providers Care Car Mover Name Role Phone Fredi Mcleod MD Primary Care Provider [phone] Reason for Visit * Reason Comments Routine Visit Encounter Details Date Type Department Care Team (Late st Contact Info) Description 03/09/2025 9:20 AM EDT Routine [facility] [address] [place] [phone] Martina Arrington PA [address] [place], [id number] Third trimester ([facility] 36 weeks gestation of ([facility]) Social History Tobacco Use Types Packs/Day Years [...] Sign Reading Time Taken Comments Blood Pressure 120/72 03/09/2025 9:39 AM EDT Pulse - - Temperature - - Respiratory Rate - - Oxygen Saturation - - Inhaled Oxygen Concentration - - Weight 117 kg (258 lb) 03/09/2025 9:39 AM EDT Height - - Body Mass Index 41.64 08/11/2024 4:12 PM EST documented in this encounter Progress Notes * MARIE Flores - 03/09/2025 9:20 AM EDT Reason for Appointment: Patient ID: Rose Mary Romeo is a 19 y.o. female who presents for Routine Visit Patient presents today for Return OB appointment. MEDICATIONS Current Outpatient Medications Medication Instructions lurasidone (LATUDA) 20 mg, Daily with evening meal pantoprazole (PROTONIX) 40 mg, Daily before breakfast MV-Min-Fe Fum-FA-DHA ( 1 PO) 1 each, Daily ALLERGIES No Known Allergies PROBLEMS Active Ambulatory Problems Diagnosis Date Noted Mood disorder 02/03/2024 Altered mental status 02/03/2024 Psychogenic nonepileptic seizure 02/03/2024 Resolved Ambulatory Problems Diagnosis Date Noted No Resolved Ambulatory Problems Past Medical History: Diagnosis Date Anxiety Asthma (HCC) Depression DMDD (disruptive mood dysregulation disorder) (HCC) History of being hospitalized 2020 HISTORY PAST MEDICAL HISTORY SOCIAL HISTORY Past Medical History: Diagnosis Date Anxiety Asthma (HCC) Depression DMDD (disruptive mood dysregulation disorder) (HCC) History of being hospitalized 2020 seizure Social [...] SYSTEMS Review of Systems: Review of Systems OBJECTIVE Objective: OBGyn Exam Vitals: Estimated body mass index is 41 kg/m?? as calculated from the following: Height as of 08/11/24: 5' 6 . Weight as of 03/02/25: 254 lb. BP: Patient's last menstrual period was 06/23/2024. ASSESSMENT & PLAN ICD-10-CM 1. Third trimester ([facility]) Z34.93 2. 36 weeks gestation of ([facility]) Z3A.36 Return OB: Patient presents today for a routine obstetrics appointment. Patient is currently 37w0d . Patient states she is doing well but has complaints of being tired due to current . Patient has verbalizes frequent movement. labor precautions was discussed/given and patient was instructed to perform kick counts three times a day. No orders of the defined types were placed in this encounter. Follow Up: Patient is to return to office in 1 week for routine OB appointment. Documented by Tracie Ferrell MA on behalf of: MARIE Flores documented in this encounter Plan of Treatment Upcoming Encounters Date Type Department Care Team (Late st Contact Info) Description 03/15/2025 11:20 AM EDT Routine [facility] [address] [place] [address] Ranjit Zamudio DO [address] [place] [address] documented as of this encounter Procedures Procedure Name Priority Date/Time Associated Diagnosis Comments POCT URINALYSIS DIPSTICK Routine 03/09/2025 9:51 AM EDT Third trimester ([facility]) documented in this encounter Results * POCT urinalysis dipstick manually resulted (03/09/2025 9:51 AM EDT) Color, UA Yellow Clarity, UA Clear Glucose, UA Negative Negative - 2000(110) ++++ mg/dL Bilirubin, UA Negative Negative - 4(70) +++ mg/dL Ketones, UA Negative Negative - 160(16) ++++ mg/dL Spec Grav, UA 1.010 1 - 1.03 Blood, UA Negative Negative - 50 Balwinder/mcL pH, UA 7.0 5 - 9 Protein, UA Negative Negative - 2000(20) ++++ mg/dL Urobilinogen, UA 1.0 0.2 - 12 mg/dL Leukocytes, UA Negative Negative - 500+++ Uzair/mcL Nitrite, UA Negative Negative - Positive Urine 03/09/2025 9:51 AM EDT us Martina SALAZAR POINT OF CARE TEST ENTER/EDIT OR DERABLES Final Result documented in this encounter Visit Diagnoses Diagnosis Third trimester ([facility]) state, incidental 36 weeks gestation of ([facility]) documented in this encounter Care Teams Car Mover Relationship Specialty Start Date End Date Fredi Mcleod MD [address] [place] [phone] PCP - General Family Medicine 02/08/24 documented as of this encounter
--- OUTSIDE RECORDS SUMMARY | 2025-03-15 10:19 | XMS_ITS | Encounter Summary ---
Author Organization [facility] Address [address] [facility] [place] [address] Care Team Providers Care Oil Tester Name Role Phone Fredi Mcleod MD Primary Care Provider [phone] Encounter Details Date Type Department Care Team (Late Contact Info) Description 12/20/2024 Abstract [facility] [address] [place] [phone] Ranjit Zamudio DO [address] [place], [facility]11 Social History Tobacco Use Types Packs/Day Years [...] on file documented as of this encounter Plan of Treatment Upcoming Encounters Date Type Department Care Team (Late Contact Info) Description 03/15/2025 11:20 AM EDT Routine [facility] [address] [place] [address] Ranjit Zamudio DO [address] [place], [place] [id number] documented as of this encounter Visit Diagnoses Not on filedocumented in this encounter Care Teams Oil Tester Relationship Specialty Start Date End Date Fredi Mcleod MD [address] [place] [address] PCP - General Family Medicine 02/08/24 documented as of this encounter
--- OUTSIDE RECORDS SUMMARY | 2025-03-15 10:19 | XMS_ITS | Encounter Summary ---
Author Organization [facility] Address [address] [place] [address] Phone Care Team Providers Care Tower Foreman Name Role Phone Fredi Mcleod MD Primary Care Provider [phone] Encounter Details Date Type Department Care Team (Late st Contact Info) Description 03/29/2018 Orders Only [facility] [address] [place] [address] Conversion, Onbase Social History Tobacco Use Types Packs/Day Years Used Date Smoking Tobacco: Never Assessed Comments Unknown Sex and Gender Information Value Date Recorded Sex Assigned at Not on file Legal Sex Female 7:43 AM EST Gender Identity Not on file Sexual Orientation Not on file documented as of this encounter Plan of Treatment Scheduled Orders Name Type Priority Associated Diagnoses Orde r Schedule OUTSIDE LAB SCAN Lab Ordered: 03/29/2018 documented as of this encounter Visit Diagnoses Not on filedocumented in this encounter Care Teams Tower Foreman Relationship Specialty Start Date End Date Fredi Mcleod MD [address] [place] [address] PCP - General 04 documented as of this encounter
--- OUTSIDE RECORDS SUMMARY | 2025-03-15 10:19 | XMS_ITS | Encounter Summary ---
Author Organization [facility] Address [address] [place] [address] Care Team Providers Care Route Process Administrator Name Role Phone Fredi Mcleod MD Primary Care Provider [phone] Encounter Details Date Type Department Care Team (Late Contact Info) Description 03/09/2025 Bamboo flowsheet [facility] [address] [phone] Martina Arrington PA [address] [place], [facility]11 Social History Tobacco Use Types Packs/Day Years [...] 03/15/2025 11:20 AM EDT Routine [facility] [address] [address] Ranjit Zamudio DO [address] [place], [facility] documented as of this encounter Visit Diagnoses Not on filedocumented in this encounter Care Teams Route Process Administrator Relationship Specialty Start Date End Date Fredi Mcleod MD [address] [place] [address] PCP - General Family Medicine 02/08/24 documented as of this encounter
--- OUTSIDE RECORDS SUMMARY | 2025-03-15 10:19 | XMS_ITS ---
Author Organization [facility] (Clinical[facility]) Address Unknown Care Team Providers Care Men'S Designer Name Role Phone Unavailable Primary Care Physician Unavailab le Results * [UNITY] ANEUPLOIDY NIPT Performed by: Cryo[employer] Component Value Range Date Fraction 3.3% 09/05/2024 09 :45 pm UTC Sex Chromosome Aneuploidy NOT DETECTED 09:45 pm UTC Monosomy X LOW RISK <1 in 10,000 2024 09:45 pm UTC Trisomy 13 LOW RISK <1 in 10,000 2024 09:45 pm UTC Trisomy 18 LOW RISK <1 in 10,000 2024 09:45 pm UTC Trisomy 21 LOW RISK <1 in 10,000 2024 09:45 pm UTC Sex FEMALE 09/05/2024 09:4 5 pm UTC Gestation SKAGGS 09/05/19 09:45 pm UTC For detailed report, see PDF See PDF 09/05/2024 09:45 pm UTC 09/05/2024 09:4 5 pm UTC Social History Observation Value Start Date End Date
--- OUTSIDE RECORDS SUMMARY | 2025-03-15 10:19 | XMS_ITS | Clinical Summary ---
Author Organization [facility] Address [address] [place] [address] Care Team Providers Care Sash Installer Name Role Phone Fredi Mcleod MD Primary Care Provider [phone] Medications pantoprazole Sodium (Protonix) 40 MG Pack Take 1 packet by mouth. 3 Active Ondansetron 4 MG Tab Dispersible tablet Take 1 tablet by mouth once. 3 Active nystatin 647647 UNIT/GM Powder powder Apply 1 Application topically. 3 Active mometasone Furo-Formoterol Fum (Dulera) 200-5 MCG/puff Aerosol Inhale 2 puffs every 12 hours. Active Junel FE 08/22 1-20 MG-MCG tablet Take 1 tablet by mouth daily. Active Active Problems Problem Noted Date Diagnosed Date body mass index of 40.0-49.9 06/30/2023 Social History Tobacco Use Types Packs/Day Years Used Date Smoking Tobacco: Some Days Tobacco Cessation:Ready to Q uit: Not Asked; Counseling Given: Not Answered Comments:vape Comments Unknown Sex and Gender Information Value Date Recorded Sex Assigned at Not on file Legal Sex Female 8:58 AM EST Gender Identity Not on file Sexual Orientation Not on file Last Filed Vital Signs Vital Sign Reading Time Taken Comments Blood Pressure - - Pulse - - Temperature - - Respiratory Rate 16 06/30/2023 1:40 PM EST Oxygen Saturation - - Inhaled Oxygen Concentration - - Weight 118.3 kg (260 lb 12.8 oz) 06/30/2023 1:40 PM EST Height 165.1 cm (5' 5 ) 06/30/2023 1:40 PM EST Body Mass Index 43.4 06/30/2023 1:40 PM EST Plan of Treatment Health Maintenance Due Date Last Done Comments GONORRHEA SCREEN 2004 HEPATITIS C VIRUS SCREENING 2004 HIV SCREENING DISCUSSION 12/31/2019 CHLAMYDIA SCREEN 2020 PNEUMOCOCCAL VACCINE SERIES (1 of 2 - PCV) 12/31/2023 01/28/2006, 07/23/2005, 05/28/2005, Additional history exists COVID-19 VACCINE (4 - 2023-2 5 season) 2024 10/03/2022, 07/31/2022, 07/01/2022 INFLUENZA VACCINE (#1) 2025 , 07/01/2022, 07/01/2022, Additional history exists TETANUS 01/29/2028 01/28/2018, 01/01, 04/20/2006, Additional history exists HEP B VACCINE Completed 07/23/2005, 05/04, 03/27/2005, Additional history exists TDAP (ADULT) Completed 01/28/2018, 04/20/2006 HPV VACCINE ADOL Completed 08/09/2019, 02/2020, 01/26/2018, Additional history exists HPV VACCINE Completed 08/09/2019, 02/2020, 01/26/2018, Additional history exists MCV4 VACCINE Discontinued 07/01/2022, 06/04, 01/28/2018, Additional history exists Insurance [employer] Care Teams Sash Installer Relationship Specialty Start Date End Date Fredi Mcleod MD PCP - General Family Medicine 06/10/23
--- OUTSIDE RECORDS SUMMARY | 2025-03-15 10:19 | XMS_ITS | Encounter Summary ---
Author Organization [facility] Address [address] [facility] [place] [address] Care Team Providers Care Forestry Worker Name Role Phone Fredi Mcleod MD Primary Care Provider [phone] Encounter Details Date Type Department Care Team (Late Contact Info) Description 03/02/2025 Bamboo flowsheet [facility] [address] [phone] Martina Arrington PA [address] [place], [facility]11 Social History Tobacco Use Types Packs/Day Years [...] AM EDT Routine [facility] [address] [address] Ranjit Zamudio DO [address] [place], [facility] documented as of this encounter Visit Diagnoses Not on filedocumented in this encounter Care Teams Forestry Worker Relationship Specialty Start Date End Date Fredi Mcleod MD [address] [place] [address] PCP - General Family Medicine 02/08/24 documented as of this encounter
--- OUTSIDE RECORDS SUMMARY | 2025-03-15 10:19 | XMS_ITS | Encounter Summary ---
Author Organization [facility] Address [address] [place] [address] Care Team Providers Care Music Rehabilitation Therapist Name Role Phone Fredi Mcleod MD Primary Care Provider [phone] Encounter Details Date Type Department Care Team (Late st Contact Info) Description 11/25/2024 Results Follow-Up [facility] [address] [facility] [place] [address] Marichuy Torres LPN [address] [employer] [place] [id number] Social History Tobacco Use Types Packs/Day Years [...] on file documented as of this encounter Miscellaneous Notes * Result Encounter Note - Marichuy Torres LPN - 11/25/2024 9:10 AM EDT Done! documented in this encounter Plan of Treatment Upcoming Encounters Date Type Department Care Team (Late st Contact Info) Description 03/15/2025 11:20 AM EDT Routine [facility] [address] [employer] [place] [address] Ranjit Zamudio DO [address] [facility] [place] [address] documented as of this encounter Visit Diagnoses Not on filedocumented in this encounter Care Teams Music Rehabilitation Therapist Relationship Specialty Start Date End Date Fredi Mcleod MD [address] [facility] [place] [phone] PCP - General Family Medicine 02/08/24 documented as of this encounter
--- OUTSIDE RECORDS SUMMARY | 2025-03-15 10:19 | XMS_ITS | Encounter Summary ---
Author Organization [facility] Address [address] [facility] [place] [address] Care Team Providers Care Ortho Nurse Name Role Phone Fredi Mcleod MD Primary Care Provider [phone] Encounter Details Date Type Department Care Team (Late Contact Info) Description 08/25/2024 Abstract [facility] [address] [place] [phone] Ranjit Zamudio DO [address] [place], [place] [id number] Social History Tobacco Use Types Packs/Day Years [...] EDT Routine [facility] [address] [place] [address] Ranjit Zamudio DO [address] [place], [place] [id number] documented as of this encounter Visit Diagnoses Not on filedocumented in this encounter Care Teams Ortho Nurse Relationship Specialty Start Date End Date Fredi Mcleod MD [address] [place] [address] PCP - General Family Medicine 02/08/24 documented as of this encounter
--- OUTSIDE RECORDS SUMMARY | 2025-03-15 10:19 | XMS_ITS | Encounter Summary ---
Author Organization [facility] Address [address] [facility] [place] [address] Care Team Providers Care Gang Supervisor Name Role Phone Fredi Mcleod MD Primary Care Provider [phone] Encounter Details Date Type Department Care Team (Late Contact Info) Description 09/20/2024 Abstract [facility] [address] [place] [phone] Ranjit Zamudio DO [address], [facility]11 Social History Tobacco Use Types Packs/Day [...] EDT Routine [facility] [address] [place] [address] Ranjit Zamudio DO [address] [place], [place] [id number] documented as of this encounter Visit Diagnoses Not on filedocumented in this encounter Care Teams Gang Supervisor Relationship Specialty Start Date End Date Fredi Mcleod MD [address] [place] [address] PCP - General Family Medicine 02/08/24 documented as of this encounter
--- OUTSIDE RECORDS SUMMARY | 2025-03-15 10:19 | XMS_ITS | Encounter Summary ---
Author Organization [facility] Address [address] [place] [address] Care Team Providers Care Administrative Services Director Name Role Phone Fredi Mcleod MD Primary Care Provider [phone] Encounter Details Date Type Department Care Team (Late Contact Info) Description 02/01/2025 Abstract NOMPatrice MILLER [address] [place] [phone] Ranjit Zamudio DO [address] [place], [place] [phone] Social History Tobacco Use Types Packs/Day Years [...] EDT Routine NOMPatrice MILLER [address] [place] [address] Ranjit Zamudio DO [address] [place], [place] [phone] documented as of this encounter Visit Diagnoses Not on filedocumented in this encounter Care Teams Administrative Services Director Relationship Specialty Start Date End Date Fredi Mcleod MD [address] [place] [address] PCP - General Family Medicine 02/08/24 documented as of this encounter
--- OUTSIDE RECORDS SUMMARY | 2025-03-15 10:19 | XMS_ITS | Encounter Summary ---
Author Organization [facility] Address [address] [place] [address] Care Team Providers Care Sales Development Associate Name Role Phone Fredi Mcleod MD Primary Care Provider [phone] Encounter Details Date Type Department Care Team (Late Contact Info) Description 09/06/2024 Abstract NOMPatrice MILLER [address] [place] [phone] Ranjit Zamudio DO [address] [place], [place] [phone] Social History Tobacco Use Types Packs/Day Years [...] 11:20 AM EDT Routine NOMPatrice MILLER [address] [place] [address] Ranjit Zamudio DO [address] [place], [place] [phone] documented as of this encounter Visit Diagnoses Not on filedocumented in this encounter Care Teams Sales Development Associate Relationship Specialty Start Date End Date Fredi Mcleod MD [address] [place] [address] PCP - General Family Medicine 02/08/24 documented as of this encounter
--- OUTSIDE RECORDS SUMMARY | 2025-03-15 10:19 | XMS_ITS | Encounter Summary ---
Author Organization [facility] Address [address] [facility] [place] [address] Care Team Providers Care Program Director/Traffic Director Name Role Phone Fredi Mcleod MD Primary Care Provider [phone] Encounter Details Date Type Department Care Team (Late Contact Info) Description 09/15/2024 Abstract NOMPatrice MILLER [address] [place] [phone] Ranjit Zamudio DO [address] [place], [facility] Social History Tobacco Use Types Packs/Day Years [...] EDT Routine NOMPatrice MILLER [address] [place] [address] Ranjit Zamudio DO [address] [place], [place] [phone] documented as of this encounter Visit Diagnoses Not on filedocumented in this encounter Care Teams Program Director/Traffic Director Relationship Specialty Start Date End Date Fredi Mcleod MD [address] [place] [address] PCP - General Family Medicine 02/08/24 documented as of this encounter
--- OUTSIDE RECORDS SUMMARY | 2025-03-15 10:19 | XMS_ITS | Encounter Summary ---
Author Organization [facility] Address [address] [facility] [place] [address] Care Team Providers Care Stock Layer Name Role Phone Fredi Mcleod MD Primary Care Provider [phone] Encounter Details Date Type Department Care Team (Late st Contact Info) Description 12/16/2024 Abstract [facility] MILLER [address] [phone] Jerica Monroe MA Social History Tobacco Use Types Packs/Day Years [...] Info) Description 03/15/2025 11:20 AM EDT Routine KEV MILLER [address] [place] [phone] Ranjit Zamudio DO [address] [facility] [address] [place], [place] [phone] documented as of this encounter Visit Diagnoses Not on filedocumented in this encounter Care Teams Stock Layer Relationship Specialty Start Date End Date Fredi Mcleod MD [address] [facility] [place] [address] PCP - General Family Medicine 02/08/24 documented as of this encounter
--- OUTSIDE RECORDS SUMMARY | 2025-03-15 10:19 | XMS_ITS | Encounter Summary ---
Author Organization [facility] Address [address] [place] [address] Phone Care Team Providers Care Auto Body Repair Technician Name Role Phone Fredi Mcleod MD Primary Care Provider [phone] Encounter Details Date Type Department Care Team (Late st Contact Info) Description 02/13/2018 Orders Only [facility] [address] [place] [address] Conversion, Onbase Social History Tobacco Use Types [...] r Schedule OUTSIDE LAB SCAN Lab Ordered: 02/13/2018 documented as of this encounter Visit Diagnoses Not on filedocumented in this encounter Care Teams Auto Body Repair Technician Relationship Specialty Start Date End Date Fredi Mcleod MD [address] [place] [address] PCP - General 04 documented as of this encounter
--- OUTSIDE RECORDS SUMMARY | 2025-03-15 10:19 | XMS_ITS | Encounter Summary ---
Author Organization [facility] Address [address] [place] [address] Phone Care Team Providers Care Lock Installer Name Role Phone Fredi Mcleod MD Primary Care Provider [phone] Encounter Details Date Type Department Care Team (Late st Contact Info) Description 03/27/2018 Orders Only [facility] [address] [place] [address] Conversion, Onbase Social History Tobacco Use Types [...] r Schedule OUTSIDE LAB SCAN Lab Ordered: 03/27/2018 OUTSIDE LAB SCAN Lab Ordered: 03/27/2018 documented as of this encounter Visit Diagnoses Not on filedocumented in this encounter Care Teams Lock Installer Relationship Specialty Start Date End Date Fredi Mcleod MD [address] [place] [address] PCP - General 04 documented as of this encounter
--- OUTSIDE RECORDS SUMMARY | 2025-03-15 10:19 | XMS_ITS | Clinical Summary ---
Author Organization [facility] Address [address] [place] [address] Care Team Providers Care Sales Record Clerk Name Role Phone Unavailable Primary Care Provider Unavailabl e Allergies No known active allergies Social History Tobacco Use Types Packs/Day Years Used Date Smoking Tobacco: Never Tobacco Cessation:Counseling Given: Not Answered Area Deprivation Index Answer Date Ron rded National Score (1-100), lower number is lower ri sk 60 08/04/2024 State Score (1-10), lower number is lower risk 4 08/04/2024 Data from: https://www.neighborhoodatlas.medicine.[facility]/. Last address used for calculation [address] 08/04/2024 Comments Unknown Sex and Gender Information Value Date Recorded Sex Assigned at Not on file Legal Sex Female 2:35 PM EST Gender Identity Not on file Sexual Orientation Not on file Last Filed Vital Signs Vital Sign Reading Time Taken Comments Blood Pressure 120/76 08/03/2024 5:17 PM EST Pulse 88 08/03/2024 5:14 PM EST Temperature 36.9 C (98.5 F) 08/03/2024 5:14 PM EST Respiratory Rate 20 08/03/2024 5:14 PM EST Oxygen Saturation 98% 08/03/2024 5:14 PM EST Inhaled Oxygen Concentration - - Weight 112 kg (247 lb) 08/03/2024 3:21 PM EST Height - - Body Mass Index - - Plan of Treatment Health Maintenance Due Date Last Done Comments Peds To Adult Transition Ini tial Discussion 2016 Peds To Adult Transition Kierra ual Assessment 2018 Anxiety Screening 2022 Depression Screening 2022 HIV Screening 2022 Hepatitis C Screening 2022 Influenza Vaccine (#1) 2025 , 07/01/2022, 08/09/2019, Additional history exists Chlamydia Screening (18-24) 08/03/2025 08/03/2024 GC (Gonorrhea) Screening (18-24) 08/03/2025 08/03/19 25 DTaP,Tdap,Td Vaccine (7 - Td or Tdap) 01/29/2028 01/28/2018, 01/16/2011, 04/20/2006, Additional history exists Hepatitis B Vaccine Completed 07/23/2005, 05/28/2005, 03/27/2005, Additional history exists HPV Vaccine Completed 08/09/2019, 01/26/2018 Meningococcal B Vaccine Completed 07/31/2022, 07/01 Procedures Procedure Name Priority Date/Time Associated Diagnosis Comments GONORRHEA/CHLAMYDIA NAAT STAT 08/03/2024 4:57 PM EST from Last 3 Months or Most Recently Relevant to Health Maintenance Results * GONORRHEA/CHLAMYDIA NAAT (08/03/2024 4:57 PM EST) Neisseria gonorrhoeae RNA Not detected Not detected [facility] 08/04/2024 2:11 AM EST [facility] Chlamydia trachomatis RNA Not detected Not detected [facility] 08/04/2024 2:11 AM EST [facility] Urine URINE / Unknown Non Blood / Unknown 08/03/2024 4:57 PM EST 08/03/2024 5:07 PM EST [facility] - 08/04/2024 2:11 AM EST For screening asymptomatic women, a vaginal swab specimen(APTIMA vaginal swab [id number]) is optimal. Urine specimens have reduced sensitivity for Chlamydia trachomatis or Neisseria gonorrhoeae infection in female patients without symptoms. This FDA-approved assay has been modified to accept rectal swabs self-collected in a healthcare setting. For self-collected rectal swabs, the test was developed and its performance characteristics determined by the [facility]'s [facility] [place] ([facility]). It has not been cleared or approved by the FDA. [facility] is regulated under CLIA as qualified to perform high-complexity testing. This test is used for clinical purposes. It should not be regarded as investigational or for research. Sarwta Lockwood MD MICROBIOLOGY Final Result [facility] [address] [facility] [address] [place] [address], [place] from Last 3 Months or Most Recently Relevant to Health Maintenance Insurance [employer]
--- OUTSIDE RECORDS SUMMARY | 2025-03-15 10:19 | XMS_ITS | Encounter Summary ---
Author Organization [facility] Address [address] [facility] [address] Care Team Providers Care C D Stripper Name Role Phone Fredi Mcleod MD Primary Care Provider [phone] Encounter Details Date Type Department Care Team (Late Contact Info) Description 09/06/2024 Abstract NOMPatrice MILLER [address] [place] [phone] Ranjit Zamudio DO [address] [place], [place] [phone] Social History Tobacco Use Types Packs/Day Years [...] EDT Routine NOMPatrice MILLER [address] [place] [address] Ranjit Zamudio DO [address] [place], [place] [phone] documented as of this encounter Visit Diagnoses Not on filedocumented in this encounter Care Teams C D Stripper Relationship Specialty Start Date End Date Fredi Mcleod MD [address] [place] [address] PCP - General Family Medicine 02/08/24 documented as of this encounter
--- OUTSIDE RECORDS SUMMARY | 2025-03-15 10:19 | XMS_ITS | Clinical Summary ---
Author Organization [facility] Address [address] [place] [address] Care Team Providers Care Nitroglycerin Neutralizer Name Role Phone Fredi Mcleod MD Primary Care Provider [phone] Allergies No known active allergies Medications lurasidone (Latuda) 40 MG tablet Take 20 mg by mouth in the evening. Take with meals Active MV-Min-Fe Fum-FA-DHA ( 1 PO) Take 1 each by mouth Daily Active pantoprazole (ProtoNix) 40 MG EC tablet Take 40 mg by mouth in the morning. Take before meals. 5 Active ondansetron ODT (Zofran-ODT) 4 MG disintegrating tabletIndications: Nausea and vomiting during ([facility]) Take 1 tablet (4 mg) by mouth every 6 (six) hours if needed for nausea or vomiting 20 tablet 3 5 025 Discontin ued(Thera py completed ) acetaminophen-code ine (Tylenol w/ Codeine #3) 300-30 MG tablet Take 1 tablet by mouth every 6 (six) hours if needed for moderate pain 5 025 Discontin ued(Reord er) metoclopramide (Reglan) 10 MG tabletIndications: Nausea and vomiting during ([facility]) Take 1 tablet (10 mg) by mouth in the morning and 1 tablet (10 mg) at noon and 1 tablet (10 mg) in the evening. Take before meals. Take 1 tablet by mouth 30 minutes prior to meals 3 times daily as needed for nausea. 90 tablet 3 5 025 Discontin ued(Thera py completed ) promethazine (Phenergan) 12.5 MG tabletIndications: Nausea and vomiting, unspecified vomiting type TAKE 1 TABLET (12.5 MG) BY MOUTH EVERY 6 (SIX) HOURS IF NEEDED FOR NAUSEA OR VOMITING 30 tablet 3 5 025 Discontin ued(Thera py completed ) acetaminophen-code ine (Tylenol w/ Codeine #3) 300-30 MG tabletIndications: Third trimester ([facility]),Stomach pain Take 1 tablet by mouth every 6 (six) hours if needed for moderate pain 20 tablet 5 025 Discontin ued(Thera py completed ) Active Problems Problem Noted Date Diagnosed Date Mood disorder 02/03/2024 Altered mental status 02/03/2024 Psychogenic nonepileptic seizure 02/03/2024 Estimated Date of Delivery Comme nts Yes 03/30/2025 Based on last me nstrual period of 06/23/2024 Encounters Date Type Department Care Team Description 03/09/2025 9:20 AM EDT Routine [facility] [place] [address] Martina Arrington PA Third trimester ([facility]); 36 weeks gestation of ([facility]) 03/09/2025 Bamboo flowsheet [facility] [place] [address] Martina Arrington PA 03/02/2025 10:50 AM EDT Routine [facility] [address] Martina Arrington PA Third trimester ([facility]); 36 weeks gestation of ([facility]) 03/02/2025 Bamboo flowsheet [facility] [place] [address] Martina Arrington PA 02/23/2025 9:00 AM EDT Routine [facility] [address] Ranjit Zamudio DO Stomach pain (Primary Dx); Third trimester ([facility]); 35 weeks gestation of ([facility]) 02/23/2025 Bamboo flowsheet [facility] [address] [place] [address] Ranjit Zamudio, 02/16/2025 11:40 AM EDT Routine [facility] [address] [facility] [facility] [place] [address] Martina Arrington PA Third trimester ([facility]); 34 weeks gestation of ([facility]) 02/16/2025 11:00 AM EDT Ancillary Procedure [facility] [address] [place] [address] size inconsistent with dates ([facility]) 02/13/2025 Refill [facility] [address] [place] [address] Ranjit Zamudio DO 02/01/2025 1:30 PM EDT Routine [facility] [address] [facility] [facility] [place] [address] Ranjit Zamudio, Third trimester ([facility]); 32 weeks gestation of ([facility]); size inconsistent with dates ([facility]) 02/01/2025 Abstract [facility] [address] [place] [address] Ranjit Zamudio, 01/18/2025 2:30 PM EDT Routine [facility] [address] [facility] [place] [address] Martina Arrington PA Third trimester ([facility]); 29 weeks gestation of ([facility]) 01/18/2025 Bamboo flowsheet [facility] [address] [place] [address] Martina Arrington PA 12/28/2024 2:30 PM EDT Routine [facility] [address] [place] [address] Ranjit aZmudio DO Phlebitis (Primary Dx); Second trimester ([facility]); 26 weeks gestation of ([facility]) 12/28/2024 2:00 PM EDT Ancillary Procedure [facility] [phone] Encounter for follow-up ultrasound of anatomy ([facility]) 12/22/2024 Refill [facility] [place] [address] Ranjit Zamudio DO Nausea and vomiting, unspecified vomiting type 12/20/2024 Abstract [facility] Gilbert MILLER [address] [place] [address] [place] [address] Ranjit Zamudio DO 12/16/2024 Abstract [facility] MILLER [address] [place] [address] [place] [address] Jerica Monroe MA from Last 3 Months Family History Medical History Relation Name Comments ADD / ADHD Father Allergies Father Allergies Mother Depression Mother Migraines Mother Allergies Sibling Depression Sibling Relation Name Status Comments Father Mother Sibling Social History Tobacco Use Types Packs/Day Years [...] Pressure 120/72 03/09/2025 9:39 AM EDT Pulse 97 08/11/2024 4:12 PM EST Temperature - - Respiratory Rate - - Oxygen Saturation - - Inhaled Oxygen Concentration - - Weight 117 kg (258 lb) 03/09/2025 9:39 AM EDT Height 167.6 cm (5' 6 ) 08/11/2024 4:12 PM EST Body Mass Index 41.64 08/11/2024 4:12 PM EST Plan of Treatment Upcoming Encounters Date Type Department Care Team (Late st Contact Info) Description 03/15/2025 11:20 AM EDT Routine [facility] [address] [facility] [facility] [place] [address] RobbRanjit perry, DO [address] [facility] [place] [address] Health Maintenance Due Date Last Done Comments Influenza Vaccine (#1) 2025 3, 07/01/2022, 08/09/2019, Additional history exists Procedures Procedure Name Priority Date/Time Associated Diagnosis Comments POCT URINALYSIS DIPSTICK Routine 03/09/2025 9:51 AM EDT Third trimester ([facility]) POCT URINALYSIS DIPSTICK Routine 03/02/2025 11:29 AM EDT Third trimester ([facility]) CULTURE, GROUP B STREP WITH SUSCEPTIBLITY Routine 03/02/2025 11:15 AM EDT Third trimester ([facility]) POCT URINALYSIS DIPSTICK Routine 02/16/2025 2:10 PM EDT Third trimester ([facility]) US OB FOLLOW UP TRANSABDOMINAL APPROACH Routine 02/16/2025 11:22 AM EDT size inconsistent with dates ([facility]) POCT URINALYSIS DIPSTICK Routine 02/01/2025 2:00 PM EDT Third trimester ([facility]) POCT URINALYSIS DIPSTICK Routine 01/18/2025 3:04 PM EDT Third trimester ([facility]) POCT URINALYSIS DIPSTICK Routine 12/28/2024 2:47 PM EDT Second trimester ([facility]) US OB LIMITED 1+ FETUSES Routine 12/28/2024 2:29 PM EDT Encounter for follow-up ultrasound of anatomy ([facility]) from Last 3 Months Results * POCT urinalysis dipstick manually resulted (03/09/2025 9:51 AM EDT) Only the most recent of6 resultswithin the time period is included. Color, UA Yellow Clarity, UA Clear Glucose, [...] BLOOD ORDERABLES Final Resul t EXTERNAL LAB * US OB follow up transabdominal approach (02/16/2025 11:22 AM EDT) Anatomical Region Laterality Modality Body Ultrasound 02/16/2025 11:2 6 AM EDT Impressions 02/16/2025 12:09 PM EDT Single, live intrauterine , current sonographic age of 38 weeks and 6 days, with an estimated date of delivery of March 31, 2025. * Estimated Weight (g) by Percentile is based upon an accurate estimated age based on last menstrual period. TRANSCRIBED BY: ELECTRONICALLY SIGNED BY: Marcelo Jackson MD Narrative 02/16/2025 12:09 PM EDT FINDINGS: A single, live intrauterine is present with normal cardiac rate of 153 beats per minute. Normal activity and amniotic fluid volume. Amniotic fluid index is 10.0 cm. Morphology is grossly normal. The cervix not visualized due to cephalic presentation. The current sonographic age is 33 weeks and 6 days, based on the following measurements: BPD 8.2cm (33 weeks, 1 days) Head Circumference 30.9cm (34 weeks, 4 days) Abdominal Circumference 29.7cm 33( weeks, 5 days) Femur Length 6.6cm (34 weeks, 0 days) Presentation cephalic Weight (g) by Percentile 36.8% * These measurements result in an estimated date of delivery of March 31, 2025 The current estimated weight is 2275+/- 341 grams ( 5 pound, 0 ounces). Procedure Note Marcelo Jackson MD - 02/16/2025 FINDINGS: A single, live intrauterine is present with normal cardiacrate of 153 beats per minute. Normal activity and amniotic fluidvolume. Amniotic fluid index is 10.0 cm. Morphology is grossly normal.The cervix not visualized due to cephalic presentation. The currentsonographic age is 33 weeks and 6 days, based on the followingmeasurements: BPD 8.2cm (33 weeks, 1 days) Head Circumference 30.9cm (34 weeks, 4 days) Abdominal Circumference 29.7cm 33( weeks, 5 days) Femur Length 6.6cm (34 weeks, 0 days) Presentation cephalic Weight (g) by Percentile 36.8% * These measurements result in an estimated date of delivery of March The current estimated weight is 2275+/- 341 grams ( 5 pound,0 ounces). IMPRESSION: Single, live intrauterine , current sonographic age of 38 weeksand 6 days, with an estimated date of delivery of March 31, 2025. * Estimated Weight (g) by Percentile is based upon an accurateestimated age based on last menstrual period. TRANSCRIBED BY: ELECTRONICALLY SIGNED BY: Marcelo Jackson MD us Ranjit Robb DO IMG OB US PROCEDURES Final Resul t * US OB limited 1+ fetuses (12/28/2024 2:29 PM EDT) Anatomical Region Laterality Modality Body Ultrasound 12/28/2024 11:2 1 PM EDT Narrative 12/28/2024 11:21 PM EDT EXAM: US OB LIMITED 1+ FETUSES HISTORY: Follow up anatomy. COMPARISON: Ob ultrasound 11/23/2024. TECHNIQUE: Two-dimensional transabdominal grayscale ultrasound imaging of the pelvis was performed. FINDINGS: Gestation: Single Presentation: Breech Cardiac Activity: 147 beats per minute Placental Location: Posterior with no sonographic abnormalities identified. Amniotic Fluid: Appears adequate ANATOMY LVOT: Unremarkable RVOT: Unremarkable Cord insertion: Unremarkable Cord vessels: Three Orbits: Unremarkable Profile: Unremarkable IMPRESSION: 1. Single, live intrauterine gestation 26 weeks, 6 days by LMP. JESSICA is 03/30/2025. 2. Unremarkable follow up anatomy, as described above. Interpreted by: Electronically signed by CHERI BRIDGES II, MD, PHD at 28-Dec-2024 11:19:30 PM [facility] Procedure Note Cheri Bridges MD - 12/28/2024 EXAM: US OB LIMITED 1+ FETUSES HISTORY: Follow up anatomy. COMPARISON: Ob ultrasound 11/23/2024. TECHNIQUE: Two-dimensional transabdominal grayscale ultrasound imaging ofthe pelvis was performed. FINDINGS: Gestation: Single Presentation: Breech Cardiac Activity: 147 beats per minute Placental Location: Posterior with no sonographic abnormalitiesidentified. Amniotic Fluid: Appears adequate ANATOMY LVOT: Unremarkable RVOT: Unremarkable Cord insertion: Unremarkable Cord vessels: Three Orbits: Unremarkable Profile: Unremarkable IMPRESSION: 1. Single, live intrauterine gestation 26 weeks, 6 days by LMP. JESSICA is03/30/2025. 2. Unremarkable follow up anatomy, as described above. Interpreted by: Electronically signed by CHERI BRIDGES II, MD, PHD [id number] 11:19:30 PM [facility] us Ranjit Robb DO IMG OB US PROCEDURES Final Resul t from Last 3 Months Insurance [facility] MEDICAID Care Teams Nitroglycerin Neutralizer Relationship Specialty Start Date End Date Fredi Mcleod MD [address] [place] [phone] PCP - General Family Medicine 02/08/24
--- OUTSIDE RECORDS SUMMARY | 2025-03-15 10:19 | XMS_ITS | Clinical Summary ---
Author Organization [facility] Address [address] [place] [address] Phone Care Team Providers Care Mason Foreman/Superintendant Name Role Phone Fredi Mcleod MD Primary Care Provider [phone] Social History Tobacco Use Types Packs/Day Years Used Date Smoking Tobacco: Never Assessed Comments Unknown Sex and Gender Information Value Date Recorded Sex Assigned at Not on file Legal Sex Female 7:43 AM EST Gender Identity Not on file Sexual Orientation Not on file Last Filed Vital Signs Vital Sign Reading Time Taken Comments Blood Pressure 113/63 10/29/2018 9:33 AM EDT Pulse 78 10/29/2018 9:33 AM EDT Temperature 36.4 C (97.6 F) 09/02/2018 10:28 AM EST Respiratory Rate 20 10/29/2018 9:33 AM EDT Oxygen Saturation 96% 10/29/2018 9:33 AM EDT Inhaled Oxygen Concentration - - Weight 66 kg (145 lb 8.1 oz) 10/29/2018 9:33 AM EDT Height 163 cm (5' 4.17 ) 10/29/2018 9:33 AM EDT Body Mass Index 24.84 10/29/2018 9:33 AM EDT Plan of Treatment Not on file Care Teams Mason Foreman/Superintendant Relationship Specialty Start Date End Date Fredi Mcleod MD [address] [facility] [place] [address] PCP - General 04
--- OUTSIDE RECORDS SUMMARY | 2025-03-15 10:19 | XMS_ITS | Encounter Summary ---
Author Organization [facility] Address [address] [facility] [place] [address] Care Team Providers Care Yard Stocker Name Role Phone Fredi Mcleod MD Primary Care Provider [phone] Encounter Details Date Type Department Care Team (Late Contact Info) Description 12/08/2024 Abstract [facility] [address] [place] [id number] Ranjit Zamudio DO [address], [id number] Social History Tobacco Use Types Packs/Day Years [...] EDT Routine NOMPatrice MILLER [address] [place] [address] Ranjit Zamudio DO [address], [place] [id number] documented as of this encounter Visit Diagnoses Not on filedocumented in this encounter Care Teams Yard Stocker Relationship Specialty Start Date End Date Fredi Mcleod MD [address] [place] [address] PCP - General Family Medicine 02/08/24 documented as of this encounter
--- OUTSIDE RECORDS SUMMARY | 2025-03-15 10:37 | XMS_ITS | CCD ---
Author Organization [facility] Care Team Providers Care Police Communications Dispatcher Name Role Phone Martina Bedolla Attending Unavailable [...] Unavailable MD Fredi Ellington Primary Care Provider [phone] MD Ermias John Admit Provider MD John Monson Attending Provider [phone] Fredi Ellington MD Primary Care Provider [phone] VALORIE HANSEN Attending Unavailable FREDI ELLINGTON M Primary Care Unavailable FREDI ELLINGTON M Referring Unavailable Lawrence Reveles. Attending Unavailable Landing, Melecio Consulting Unavailable Jennifer RETANA Admitting Unavailable MD Melecio Rubio Consulting Unavailable Landing, Melecio Consulting Unavailable Landing, Melecio Consulting Unavailable Landing, Melecio Consulting Unavailable Landing, Melecio Consulting Unavailable Landing, Melecio Consulting Unavailable Landing, Melecio Consulting Unavailable Landing, Melecio Consulting Unavailable Radha Whipple Attending Unavailable Radha Whipple Attending Unavailable DAYNAMOCHERYL Stokes Referring UnavailAkosua Moore Admitting Unavailable Akosua LR Attending Unavailable Ramiro, Melecio Consulting Unavailable MD Melecio Rubio Consulting Unavailable Landing, Melecio Consulting Unavailable Landing, Melecio Consulting Unavailable Landing, Melecio Consulting Unavailable Landing, Melecio Consulting Unavailable Landing, Melecio Consulting Unavailable Landing, Melecio Consulting Unavailable Landing, Melecio Consulting Unavailable MISTY MACKEY Attending Unavailable [...] Unavailable Fredi Ellington MD Primary Care Provider [phone] Hate, Astrit H Attending Unavailable Miky, Han S. Attending Unavailable Hajdari, Astrit H Attending Unavailable Fredi Ellington MD Primary Care Provider [phone] Robson White MD Attending Provider Jenn Sapp DO Emergency Provider Radha Whipple Attending Unavailable Radha Whipple Attending Unavailable Fredi Ellington MD Primary Care Provider [phone] Jenn Sapp Admitting Unavailable Jenn Sapp Attending [...] #3) 300-30 MG tablet Indications: Third trimester ([facility]) , Stomach pain Take 1 tablet by [...] hours as needed for pain and pain Cornell 325 mg-5 mg oral tablet 1 tab(s), [...] oral solution (4 sources) alpha-Adrenergic Agonist, Uncompetitive E-stdsff-J-aspartat e Receptor Antagonist, Sigma-1 Agonist Start: 05-22-2024 take 5 mL by mouth four times daily Bromfed DM oral syrup 5 mL, Oral, QID for cold symptoms, 200 mL, Refill(s) 0, [facility]/pharmacy #[id number], 170.2, cm, 05/22/24 21:55:00 EDT, Height/Length [...] Pain, # 30 tab(s), Refills(s) 0, Pharmacy: [facility]/pharmacy #[id number], 165.1, cm, 01/13/24 18:35:00 EDT, Height/Length [...] BID, # 60 tab(s), Refills(s) 0, Pharmacy: [facility]/pharmacy #[id number], 165.1, cm, 05/11/23 8:01:00 EDT, Height/Length [...] anxiety, # 15 tab(s), Refills(s) 0, Pharmacy: [facility]/pharmacy #[id number], 165, cm, 07/04/22 18:11:00 EST, Height/Length [...] MG tablet Indications: Nausea and vomiting during ([facility]) Take 1 tablet (10 mg) by [...] (1 source) Polyene Antifungal Start: 06-16-2023 nystatin [id number] UNIT/GM Powder powder Apply 1 Application topically. 0 06/16/2023 Active ondansetron 4 mg disintegrating oral tablet (20 sources) Serotonin-3 Receptor Antagonist Start: 08-18-2024 End: 03-09-2025 take 1 tablet by mouth every six hours for nausea ondansetron ODT (Zofran-ODT) 4 MG disintegrating tablet Indications: Nausea and vomiting during ([facility]) Take 1 tablet (4 mg) by [...] q4hr, # 20 tab(s), Refills(s) 0, Pharmacy: [facility]/pharmacy #[id number], 170, cm, 08/21/24 16:58:00 EST, Height/Length [...] Pain, # 8 tab(s), Refills(s) 0, Pharmacy: [facility]/pharmacy #[id number], 165.1, cm, 01/12/24 15:00:00 EDT, Height/Length [...] Nausea/Vomiting, # 12 tab(s), Refills(s) 0, [id number] 170.2, cm, 05/22/24 21:55:00 EDT, Height/Length Dosing, 115.8, kg, 05/22/24 21:55:00 EDT, Weight Dosing Start Date: 05/22/24 Status: Ordered Start: 01-12-2024 take 1 tablet by jaz th every eight hours as needed for nausea Zofran ODT 4 mg Tab-Dis 4 mg = 1 tab(s), Oral, q8hr, PRN Nausea/Vomiting, # 12 tab(s), Refills(s) 0, [id number], 165.1, cm, 01/12/24 15:00:00 EDT, Height/Length [...] Nausea/Vomiting, # 12 tab(s), Refills(s) 0, [id number], 165.1, cm, 01/12/24 15:00:00 EDT, Height/Length [...] current use of drug therapy; Translations: [Other jail (current) drug therapy] Onset: 3 Episodic Other [...] Negative Negative - 4(70) +++ mg/dL [facility] Blood, UA Negative Negative - 50 Blawinder/mcL [facility] Clarity, UA Clear [facility] Color, UA Yellow [facility] Glucose, UA Negative Negative - 1999(110) ++++ mg/dL [facility] Interpretation and review of laboratory results Normal [facility] Ketones, UA Negative Negative - 160(16) ++++ mg/dL [facility] Leukocytes, UA Negative Negative - 500+++ Uzair/mcL [facility] Nitrite, UA Negative Negative - Positive [facility] pH, UA 7 5 - 9 [facility] Protein, UA Negative Negative - 1999(20) ++++ mg/dL [facility] Spec Grav, UA 1.01 1 - 1.03 [facility] Urobilinogen, UA 1.0 0.2 - 12 mg/dL [facility] Urinalysis macro (dipstick) panel (U)on 03-02-2025 Bilirubin, UA Negative Negative - 4(70) +++ mg/dL [facility] Blood, UA Negative Negative - 50 Balwinder/mcL [facility] Clarity, UA Clear [facility] Color, UA Yellow [facility] Glucose, UA Negative Negative - 1999(110) ++++ mg/dL [facility] Interpretation and review of laboratory results Normal [facility] Ketones, UA Negative Negative - 160(16) ++++ mg/dL [facility] Leukocytes, UA Negative Negative - 500+++ Uzair/mcL [facility] Nitrite, UA Negative Negative - Positive [facility] pH, UA 6 5 - 9 [facility] Protein, UA Negative Negative - 1999(20) ++++ mg/dL [facility] Spec Grav, UA 1.015 1 - 1.03 [facility] Urobilinogen, UA 1.0 0.2 - 12 mg/dL [facility] US OB FOLLOW UP TRANSABDOMIN AL APPROACHon [...] Negative Negative - 4(70) +++ mg/dL [facility] Blood, UA Negative Negative - 50 Balwinder/mcL [facility] Clarity, UA Clear [facility] Color, UA Yellow [facility] Glucose, UA Negative Negative - 1999(110) ++++ mg/dL [facility] Interpretation and review of laboratory results Abnormal [facility] Ketones, UA Negative Negative - 160(16) ++++ mg/dL [facility] Leukocytes, UA Negative Negative - 500+++ Uzair/mcL [facility] Nitrite, UA Negative Negative - Positive [facility] pH, UA 7 5 - 9 [facility] Protein, UA Trace Negative - 1999(20) ++++ mg/dL [facility] Spec Grav, UA 1.015 1 - 1.03 [facility] Urobilinogen, UA 0.2 0.2 - 12 mg/dL [facility] Urinalysis macro (dipstick) panel (U)on 02-01-2025 Bilirubin, UA Positive Negative - 4(70) +++ mg/dL [facility] Comment on above: small Blood, UA Negative Negative - 50 Balwinder/mcL [facility] Clarity, UA Clear [facility] Color, UA Yellow [facility] Glucose, UA Negative Negative - 1999(110) ++++ mg/dL [facility] Interpretation and review of laboratory results Abnormal [facility] Ketones, UA Negative Negative - 160(16) ++++ mg/dL [facility] Leukocytes, UA Positive Negative - 500+++ Uzair/mcL [facility] Comment on above: small Nitrite, UA Negative Negative - Positive [facility] pH, UA 7.5 5 - 9 [facility] Protein, UA Positive Negative - 1999(20) ++++ mg/dL [facility] Comment on above: 100mg/dL Spec Grav, UA 1.02 1 - 1.03 [facility] Urobilinogen, UA 1.0 0.2 - 12 mg/dL [facility] Urinalysis macro (dipstick) panel (U)on 01-18-2025 Bilirubin, UA Negative Negative - 4(70) +++ mg/dL [facility] Blood, UA Negative Negative - 50 Balwinder/mcL [facility] Clarity, UA Clear [facility] Color, UA Yellow [facility] Glucose, UA Negative Negative - 1999(110) ++++ mg/dL [facility] Interpretation and review of laboratory results Abnormal [facility] Ketones, UA Negative Negative - 160(16) ++++ mg/dL [facility] Leukocytes, UA Negative Negative - 500+++ Uzair/mcL [facility] Nitrite, UA Negative Negative - Positive [facility] pH, UA 7 5 - 9 [facility] Protein, UA Negative Negative - 1999(20) ++++ mg/dL [facility] Spec Grav, UA 1.015 1 - 1.03 [facility] Urobilinogen, UA 0.2 0.2 - 12 mg/dL [facility] US OB LIMITED 1+ FETUSESon 0 12-28-2024 [...] II, MD, PHD at 28-Dec-2024 11:19:30 PM [facility] Normal Not Available Comment on above: Order Comment: US OB INCOMPLETE ANATOMY Estimated Date of Delivery: 03/30/25 Gestational Age as of 11/30/2024: 22w6d Urinalysis macro (dipstick) panel (U)on 12-28-2024 Bilirubin, UA Negative Negative - 4(70) +++ mg/dL [facility] Blood, UA Negative Negative - 50 Balwinder/mcL [facility] Clarity, UA Clear [facility] Color, UA Yellow [facility] Glucose, UA Negative Negative - 2000(110) ++++ mg/dL [facility] Interpretation and review of laboratory results Abnormal [facility] Ketones, UA Negative Negative - 160(16) ++++ mg/dL [facility] Leukocytes, UA Negative Negative - 500+++ Uzair/mcL [facility] Nitrite, UA Negative Negative - Positive [facility] pH, UA 7 5 - 9 [facility] Protein, UA Trace Negative - 2000(20) ++++ mg/dL [facility] Spec Grav, UA 1.025 1 - 1.03 [facility] Urobilinogen, UA 1.0 0.2 - 12 mg/dL [facility] ALL CBC WITH AUTO DIFFon BASOPHILS ABSOLUTE AUTO 0 N [facility] Basophils/100 WBC (Bld) 0.2 % 0.2 - 2.0 % [facility] Eosinophils/100 WBC (Bld) 2.3 % 0.9 - 7.0 % [facility] Erythrocyte distribution width (RBC) [Ratio] 13.5 % 11.0 - 15.0 % [facility] Hematocrit (Bld) [Volume fraction] 32.7 % Low 36.0 - 48.0 % [facility] Hemoglobin (Bld) [Mass/Vol] 11 g/dL Low 12.0 - 16.0 g/dL [facility] IMMATURE GRANULOCYTES ABS AUTO 0.03 [facility] Immature granulocytes/100 WBC (Bld) 0.3 % 0.0 - 0.5 % [facility] Interpretation and review of laboratory results Abnormal [facility] LYMPHOCYTES ABSOLUTE AUTO 2.2 [facility] Lymphocytes/100 WBC (Bld) 25 % 20.5 - 60.0 % [facility] MCH (RBC) [Entitic mass] 28.7 pg 26.7 - 34.0 pg [facility] MCHC (RBC) [Mass/Vol] 33.6 g/dL 29.9 - 35.2 g/dL [facility] MCV (RBC) [Entitic vol] 85.4 fL 81.0 - 99.0 fL [facility] MONOCYTES ABSOLUTE AUTO 0.5 N [facility] Monocytes/100 WBC (Bld) 5.3 % 1.7 - 12.0 % [facility] NEUTROPHILS ABSOLUTE AUTO 5.9 [facility] Neutrophils/100 WBC (Bld) 66.9 % 43.0 - 75.0 % [facility] Platelet mean volume (Bld) [Entitic vol] 9.7 fL 9.5 - 13.5 fL [facility] TBH EO # 0.2 [facility] TBH PLT [address] [facility] RBC 3.83 Low [facility] TB WBC 8.8 [facility] Urinalysis macro (dipstick) panel (U)on 11-30-2024 Bilirubin, UA Negative Negative - 4(70) +++ mg/dL [facility] Blood, UA Negative Negative - 50 Balwinder/mcL [facility] Clarity, UA Clear [facility] Color, UA Yellow [facility] Glucose, UA Negative Negative - 2000(110) ++++ mg/dL [facility] Interpretation and review of laboratory results Abnormal [facility] Ketones, UA Positive Negative - 160(16) ++++ mg/dL [facility] Comment on above: trace Leukocytes, UA Negative Negative - 500+++ Uzair/mcL [facility] Nitrite, UA Negative Negative - Positive [facility] pH, UA 7 5 - 9 [facility] Protein, UA Positive Negative - 2000(20) ++++ mg/dL [facility] Comment on above: 30 Spec Grav, UA 1.025 1 - 1.03 [facility] Urobilinogen, UA 1.0 0.2 - 12 mg/dL [facility] ED Note-Physicianon 11-10-19 ED Note-Physician ED Note-Physician [...] discharged home with close follow-up with her SURG PHYSICIAN ASST Dr. Zamudio. We discussed if she has [...] Ranjit ZAMUDIO In 3 days 11/11/2024 EDT [facility] [address] [facility] [place] [address]- Business (1) Additional Instructions: Fredi Ellington In 3 days [address] [facility] [place] [address] [place] [address]- Business (1) Additional Instructions: Patient Education Nausea and Vomiting, Ad (more content not included)... [facility] Comment on above: Result Comment: [...] axis. ADDITIONAL FINDINGS: None. Ordering Provider: Pablo Fu FINAL REPORT Dictated: 11/09/2024 9:32 am Mina Botello MD Signed (Electronic Signature): 11/09/2024 9:32 am Signed by: Mina Botello MD Transcribed by: GARTH Technologist: RENNY [facility] US Limitedon 11-09 US Limited Exam Date/Time: [...] MD Transcribed by: GARTH Technologist: RENNY Iqbal [facility] Urinalysis macro (dipstick) panel (U)on 11-09-2024 Bilirubin, UA Negative Negative - 4(70) +++ mg/dL [facility] Blood, UA Negative Negative - 50 Balwinder/mcL [facility] Clarity, UA Clear [facility] Color, UA Yellow [facility] Glucose, UA Negative Negative - 1999(110) ++++ mg/dL [facility] Interpretation and review of laboratory results Abnormal [facility] Ketones, UA Negative Negative - 160(16) ++++ mg/dL [facility] Leukocytes, UA Positive Negative - 500+++ Uzair/mcL [facility] Comment on above: small Nitrite, UA Negative Negative - Positive [facility] pH, UA 7 5 - 9 [facility] Protein, UA Negative Negative - 1999(20) ++++ mg/dL [facility] Spec Grav, UA 1.02 1 - 1.03 [facility] Urobilinogen, UA 0.2 0.2 - 12 mg/dL [facility] BMPon 11-08-2024 Anion gap [Moles/Vol] 12 mmol/L Normal 6-16 [facility] Comment on above: Performed By: #### 2 [id number] #### [facility] [address] [place] [address] Calcium [Mass/Vol] 8.4 mg/dL Low 8.9-11.1 [facility] Comment on above: Performed By: #### 2 [id number] #### [facility] [address] [place] [address] Chloride [Moles/Vol] 103 mmol/L Normal 101-111 [facility] Comment on above: Performed By: #### 2 [id number] #### [facility] [address] [place] [address] CO2 [Moles/Vol] 24 mmol/L Normal 21-31 [facility] Comment on above: Performed By: #### 2 [id number] #### [facility] [address] [place] [address] Creatinine [Mass/Vol] 0.6 mg/dL Normal 0.5-1.3 [facility] Comment on above: Performed By: #### 2 [id number] #### [facility] [address] [place] [address] Glucose [Mass/Vol] 97 mg/dL Normal 55-199 [facility] Comment on above: Performed By: #### 2 [id number] #### [facility] [address] [place] [address] Potassium [Moles/Vol] 3.5 mmol/L Normal 3.5-5.3 [facility] Comment on above: Performed By: #### 2 [id number] #### [facility] [address] [place] [address] Sodium [Moles/Vol] 135 mmol/L Normal 135-145 [facility] Comment on above: Performed By: #### 2 [id number] #### [facility] [address] [place] [address] Urea nitrogen [Mass/Vol] 6 mg/dL Normal 5-21 [facility] Comment on above: Performed By: #### 2 [id number] #### [facility] [address] [place] [address] Urea nitrogen/Creatinine [Mass ratio] 10 No Units Normal 10-20 [facility] Comment on above: Performed By: #### 2 [id number] #### [facility] [address] [place] [address] BhCG Quanton 11-08-2024 [place] [address] m[IU]/mL High 1-3 [facility] Comment on above: Result Comment: 'F N ON < 1 - 3' ' 0.2 - 1 WEEK = 5 TO 50' ' 1 - 2 WEEKS = 50 - 500' ' 2 - 3 WEEKS = 100 - 5000' ' 3 - 4 WEEKS = 500 - 63984' ' 4 - 5 WEEKS = 1000 - 14381' ' 5 - 6 WEEKS = 77696 - 856352' ' 6 - 8 WEEKS = 77243 - 756036' ' 8 - 12 WEEKS = 32956 - 541593' Performed By: #### 2 [id number] #### [facility] [address] [place] [address] CBC w/ Auto Diffon 5 Basophils/100 WBC (Bld) 0.4 % Normal 0.0-2.0 [facility] Comment on above: Performed By: #### 2 [id number] #### [facility] [address] [place] [address] Basophils/Leukocytes Auto (Bld) [Pure # fraction] 0.0 E9/L Normal 0.0-0.2 [facility] Comment on above: Performed By: #### 2 [id number] #### [facility] [address] [place] [address] Eosinophils (Bld) [#/Vol] 0.1 E9/L Normal 0.0-0.5 [facility] Comment on above: Performed By: #### 2 311482 #### [facility] [address] [place] [address] Eosinophils/100 WBC (Bld) 1.8 % Normal 0.0-8.0 [facility] Comment on above: Performed By: #### 2 035195 #### [facility] [address] [place] [address] Erythrocyte distribution width (RBC) [Ratio] 14.1 % Normal 10.9-14.2 [facility] Comment on above: Performed By: #### 2 [id number] #### [facility] [address] [place] [address] Hematocrit (Bld) [Volume fraction] 33.2 % Low 34.0-46.0 [facility] Comment on above: Performed By: #### 2 [id number] #### [facility] [address] [place] [address] Hemoglobin (Bld) [Mass/Vol] 11.6 g/dL Low 12.0-16.0 [facility] Comment on above: Performed By: #### 2 422411 #### [facility] [address] [place] [address] Lymphocytes (Bld) [#/Vol] 1.8 E9/L Normal 1.0-4.0 [facility] Comment on above: Performed By: #### 2 412353 #### [facility] [address] [place] [address] Lymphocytes/100 WBC (Bld) 21.6 % Normal 14.0-50.0 [facility] Comment on above: Performed By: #### 2 534996 #### [facility] [address] [place] [address] MCH (RBC) [Entitic mass] 29.0 pg Normal 27.0-34.0 [facility] Comment on above: Performed By: #### 2 464341 #### [facility] [address] [place] [address] MCHC (RBC) [Mass/Vol] 35.0 g/dL Normal 31.4-36.0 [facility] Comment on above: Performed By: #### 2 [id number] #### [facility] [address] [place] [address] MCV (RBC) [Entitic vol] 82.8 fL Normal 80.0-100.0 [facility] Comment on above: Performed By: #### 2 872872 #### [facility] [address] [place] [address] Monocytes (Bld) [#/Vol] 0.5 E9/L Normal 0.2-1.0 [facility] Comment on above: Performed By: #### 2 813804 #### [facility] [address] [place] [address] Neutrophils (Bld) [#/Vol] 5.9 E9/L Normal 2.0-7.5 [facility] Comment on above: Performed By: #### 2 096420 #### [facility] [address] [place] [address] Neutrophils/100 WBC (Bld) 69.9 % Normal 36.0-75.0 [facility] Comment on above: Performed By: #### 2 567876 #### [facility] [address] [place] [address] Platelet 354.0 E9/L Normal 150.0-500. 0 [facility] Comment on above: Performed By: #### 2 [id number] #### [facility] [address] [place] [address] Platelet mean volume (Bld) [Entitic vol] 7.9 fL Normal 6.4-10.8 [facility] Comment on above: Performed By: #### 2 281331 #### [facility] [address] [place] [address] RBC (Bld) [#/Vol] 4.0 E12/L Low 4.3-5.9 [facility] Comment on above: Performed By: #### 2 363628 #### [facility] [address] [place] [address] WBC corrected for nucl RBC Auto (Bld) [#/Vol] 8.4 E9/L Normal 4.0-11.0 [facility] Comment on above: Performed By: #### 2 112960 #### [facility] [address] [place] [address] CHEMISTRYOrdered By: SYSTEM SYSTEM on 11-08-2024 Albumin [...] 199 mg/[place] [address] m[IU]/mL High 1 - 3 mIU/mL [facility] Comment on above: Result Comment: 'F N ON < 1 - 3' ' 0.2 - 1 WEEK = 5 TO 50' ' 1 - 2 WEEKS = 50 - 500' ' 2 - 3 WEEKS = 100 - 5000' ' 3 - 4 WEEKS = 500 - 65274' ' 4 - 5 WEEKS = 1000 - 09661' ' 5 - 6 WEEKS = 15271 - 516360' ' 6 - 8 WEEKS = 12740 - 352535' ' 8 - 12 WEEKS = 90000 - 057319' Lipase [Catalytic activity/Vol] 29 U/L Normal 13 [...] 2024 ED Clinical Summary ED Clinical Summary [place] [address] ED Clinical Summary Person Information Name: ROSE MARY SCHNEIDER [facility] Age: 18 Years : 2005 Sex: Female Language: Kazakh PCP: Fredi Ellington MD Marital Status: Single [...] 18:27:10 11/08/2024 18:27:10 11/08/2024 18:27:10 ADDRESS: [address] [facility] [place] [id number] PHYS DOC NOTES: MEDICAL INFORMATION: Prescriptions Given: [...] Pain During Follow up: With: Address: When: [facility], [address] [place] [address] , [place] [address] Business (1) In 3 days 11/11/2024 With: Address: When: Fredi Ellington [address] [facility] [facility], [place] [address] Business (1) In 3 days DIAGNOSIS: Abdominal pain in ; Headache; Nausea & vomiting; Unspecified abdominal pain Normal [facility] ED Patient Summaryon 025 ED Patient Summary ED Patient Summary [address] [address] Patient Discharge Instructions Person Information Name: ROSE MARY SCHNEIDER Age: 18 Years Arrival Date: 11/08/2024 16:05:06 Discharge Diagnosis: Abdominal pain in ; Headache; Nausea & vomiting; Unspecified abdominal pain Primary Care Physician: Fredi Ellington MD Provider Information Primary Provider: Radha Whipple DO Advanced Shuttle Preparation Supervisor:Pablo Fu PA-C. The exam and treatment you received in the Emergency Department were for an urgent problem and are not intended as complete care. It is important that you follow up with a doctor, nurse practitioner, or physician???s sales assistant displays for ongoing care. If your symptoms become worse or you do not improve as expected and you are unable to reach your usual health care provider, you should return to the Emergency Department. We are available 24 hours a day. ROSE MARY SCHNEIDER has been given the following list of patient education materials, prescriptions and follow-up instructions: Follow-up Instructions: With: Address: When: [facility], [address] [place] [address] [place] [address] [email or web address] (1) In 3 days 11/11/2024 With: Address: When: Fredi Ellington [address] [facility], [address] [place] [id number] Business (1) In 3 days In the event that this physician does not participate in your insurance network, please consult with your insurance company to find a nearby participating provider. Patient Education Materials: Nausea and Vomiting, Adult; Abdominal Pain During A MESSAGE TO ALL PATIENTS REGARDING OPIOIDS PRESCRIPTION OPIOIDS: WHAT YOU NEED TO KNOW Prescription opioids can be used to help relieve codtompn-vs-igfkvu pain and are often prescribed following a [...] guidance from (more content not included)... Normal [facility] Extra Blueon 11-08-2024 Tube Collected Plasma Yes Invalid Interpretation Code [facility] Comment on above: Performed By: #### 1 [id number] #### [facility] [address] [place] [id number] HEMATOLOGYOrdered By: SYSTEM SYSTEM on 11-08-2024 Basophils/100 [...] 11-08-2024 Albumin [Mass/Vol] 3.2 g/dL Low 3.3-5.0 [facility] Comment on above: Performed By: #### 2 [id number] #### [facility] [address] [place] [address] Albumin/Globulin (S) [Mass conc ratio] 0.9 Low 1.1-2.2 [facility] Comment on above: Performed By: #### 2 [id number] #### [facility] [address] [place] [address] ALP [Catalytic activity/Vol] 50 Int._Unit/L Normal 21-98 [facility] Comment on above: Performed By: #### 2 [id number] #### [facility] [address] [place] [address] ALT No additional P-5'-P [Catalytic activity/Vol] 7 Int._Unit/L Normal 6-46 [facility] Comment on above: Performed By: #### 2 [id number] #### [facility] [address] [place] [address] AST [Catalytic activity/Vol] 10 Int._Unit/L Normal 5-43 [facility] Comment on above: Performed By: #### 2 [id number] #### [facility] [address] [place] [address] Bilirubin [Mass/Vol] 0.2 mg/dL Normal 0.0-1.1 [facility] Comment on above: Performed By: #### 2 [id number] #### [facility] [address] [place] [address] Bilirubin.direct [Mass/Vol] 0.0 mg/dL Normal 0.0-0.4 [facility] Comment on above: Performed By: #### 2 [id number] #### [facility] [address] [place] [address] Bilirubin.indirect [Mass or moles/Vol] 0.2 mg/dL Normal 0.1-0.9 [facility] Comment on above: Performed By: #### 2 [id number] #### [facility] [address] [place] [address] Globulin (S) [Mass/Vol] 3.5 g/dL Normal 1.4-4.0 [facility] Comment on above: Performed By: #### 2 [id number] #### [facility] [address] [place] [address] Protein [Mass/Vol] 6.7 g/dL Normal 6.0-7.8 [facility] Comment on above: Performed By: #### 2 [id number] #### [facility] [address] [place] [address] Lipase Levelon 11-08-2024 Lipase [Catalytic activity/Vol] 29 U/L Normal 13-58 [facility] Comment on above: Performed By: #### 2 [id number] #### [facility] [address] [place] [address] SEROLOGYOrdered By: Susanna Daniel on 11-08-2024 HCG.beta subunit (U) [Moles/Vol] Positive (11/08/24 4:43 PM) Normal [facility] Man Sero U BetaHcg Qualon 11-08-2024 HCG.beta subunit (U) [Moles/Vol] Positive Normal [facility] Comment on above: Performed By: #### 2 [id number] #### [facility] [address] [place] [address] UA with Cult Rflxon 11-09-19 25 Bilirubin Ql (U) Negative Normal Negative [facility] Comment on above: Performed By: #### 4 [id number] #### [facility] [address] [place] [address] Clarity (U) Clear Normal Clear [facility] Comment on above: Performed By: #### 4 [id number] #### [facility] [address] [place] [address] Color (U) Light-Yellow Normal Yellow [facility] Comment on above: Result Comment: Micr oscopic readings are only performed on those samples that meet specific criteria set forth by [facility]. Performed By: #### 4 [id number] #### [facility] [address] [place] [address] Glucose Ql (U) Negative Normal Negative [facility] Comment on above: Performed By: #### 4 [id number] #### [facility] [address] [place] [address] Hemoglobin Auto test strip (U) [Mass/Vol] Negative Normal Negative [facility] Comment on above: Performed By: #### 4 [id number] #### [facility] [address] [place] [address] Ketones Auto test strip Ql (U) Negative Normal Negative [facility] Comment on above: Performed By: #### 4 [id number] #### [facility] [address] [place] [address] Leukocyte esterase Auto test strip Ql (U) Negative Normal Negative [facility] Comment on above: Performed By: #### 4 [id number] #### [facility] [address] [place] [address] Nitrite Auto test strip Ql (U) Negative Normal Negative [facility] Comment on above: Performed By: #### 4 [id number] #### [facility] [address] [place] [address] pH (U) 7.5 [pH] Invalid Interpretation Code 5.0-9.0 [facility] Comment on above: Performed By: #### 4 [id number] #### [facility] [address] [place] [address] Protein Ql (U) Negative Normal Negative [facility] Comment on above: Performed By: #### 4 [id number] #### [facility] [address] [place] [address] Specific gravity (U) [Rel density] 1.010 Invalid Interpretation Code 1.005-1.03 0 [facility] Comment on above: Performed By: #### 4 [id number] #### [facility] [address] [place] [address] Urobilinogen (U) [Mass/Vol] Negative Normal Negative [facility] Comment on above: Performed By: #### 4 [id number] #### [facility] [address] [place] [address] Type of Urine collection method Clean Catch Normal [facility] Comment on above: Performed By: #### 4 [id number] #### [facility] [address] [place] [address] URINALYSISOrdered By: SYSTEM SYSTEM on 11-08-2024 Bilirubin Ql (U) Negative Normal Negativemg /dL [facility] UA Auto SS Clarity (U) Clear (11/08/24 4:43 PM) Normal Clear [facility] UA Auto SS Color (U) Light-Yellow 1 (11/08/24 4:43 PM) Normal Yellow [facility] UA Auto SS Comment on above: Interpretive Data: M icroscopic readings are only performed on those samples that meet specific criteria set forth by [facility]. Glucose Ql (U) Negative Normal Negativemg [...] 11-08-2024 eGFR 132 mL/min/1.73 m2 Normal >=59 [facility] Comment on above: Performed By: #### 1 [id number] #### [facility] [address] [place] [address] RECURRENT VAGINITIS (HTRX)on 11-04-2024 ATOPOBIUM VAGINAE 22.789 [...] Negative Negative - 4(70) +++ mg/dL [facility] Blood, UA Negative Negative - 50 Balwinder/mcL [facility] Clarity, UA Clear [facility] Color, UA Yellow [facility] Glucose, UA Negative Negative - 1999(110) ++++ mg/dL [facility] Interpretation and review of laboratory results Abnormal [facility] Ketones, UA Positive Negative - 160(16) ++++ mg/dL [facility] Comment on above: 15mg/dL Leukocytes, UA Positive Negative - 500+++ Uzair/mcL [facility] Comment on above: small Nitrite, UA Negative Negative - Positive [facility] pH, UA 7 5 - 9 [facility] Protein, UA Negative Negative - 1999(20) ++++ mg/dL [facility] Spec Grav, UA 1.02 1 - 1.03 [facility] Urobilinogen, UA 0.2 0.2 - 12 mg/dL [facility] Urinalysis macro (dipstick) panel (U)on 09-26-2024 Bilirubin, UA Positive Negative - 4(70) +++ mg/dL [facility] Comment on above: small Blood, UA Negative Negative - 50 Balwinder/mcL [facility] Clarity, UA Clear [facility] Color, UA Hansa [facility] Glucose, UA Positive Negative - 2000(110) ++++ mg/dL [facility] Comment on above: 100 Interpretation and review of laboratory results Abnormal [facility] Ketones, UA Negative Negative - 160(16) ++++ mg/dL [facility] Leukocytes, UA Negative Negative - 500+++ Uzair/mcL [facility] Nitrite, UA Negative Negative - Positive [facility] pH, UA 5.5 5 - 9 [facility] Protein, UA Positive Negative - 2000(20) ++++ mg/dL [facility] Comment on above: 100 Spec Grav, UA 1.03 1 - 1.03 [facility] Urobilinogen, UA 0.2 0.2 - 12 mg/dL [facility] Alanine aminotransferase [En zymatic activity/volume] in Serum or PlasmaOrdered By: Jenn Sapp on 09-09-2024 ALT [Catalytic activity/Vol] Alanine aminotransferase [Enzymatic activity/volume] in Serum or Plasma 7-52 [facility] Albumin [Mass/volume] in Ser um or Plasma by Bromocresol green (BCG) dye binding methoOrdered By: Jenn Sapp on 09-09-2024 Albumin BCG dye [Mass/Vol] Albumin [Mass/volume] in Serum or Plasma by Bromocresol green (BCG) dye binding metho Low 3.5-5.7 [facility] Alkaline phosphatase [Enzyma tic activity/volume] in Serum or PlasmaOrdered By: Jenn Sapp on 09-09-2024 ALP [Catalytic activity/Vol] Alkaline phosphatase [Enzymatic activity/volume] in Serum or Plasma 34-104 [facility] Aspartate aminotransferase [ Enzymatic activity/volume] in Serum or PlasmaOrdered By: Jenn Sapp on 09-09-2024 AST [Catalytic activity/Vol] Aspartate aminotransferase [Enzymatic activity/volume] in Serum or Plasma 13-39 [facility] Basophils Auto (Bld) [#/Vol] Ordered By: Jenn Sapp on 09-09-2024 Basophils (Bld) [#/Vol] Automated basophil count 0.0-0.2 [facility] Basophils/100 WBC Auto (Bld) Ordered By: Jenn Sapp on 09-09-2024 Basophils/100 WBC (Bld) Automated basophil % . [facility] Bilirubin.total [Mass/volume ] in Serum or PlasmaOrdered By: Jenn Sapp on 09-09-2024 Bilirubin [Mass/Vol] Bilirubin.total [Mass/volume] in Serum or Plasma 0.3-1.0 [facility] Calcium [Mass/volume] in Ser um or PlasmaOrdered By: Jenn Sapp on 09-09-2024 Calcium [Mass/Vol] Calcium [Mass/volume ] in Serum or Plasma Low 8.6-10.3 [facility] Carbon dioxide, total [Moles /volume] in Serum or PlasmaOrdered By: Jenn Sapp on 09-09-2024 CO2 [Moles/Vol] Carbon dioxide, tota l [Moles/volume] in Serum or Plasma 21.0-31.0 [facility] Chloride [Moles/volume] in S wesly or PlasmaOrdered By: Jenn Sapp on 09-09-2024 Chloride [Moles/Vol] Chloride [Moles/vol ume] in Serum or Plasma 98-107 [facility] Complete Blood Count Auto Di ffon 09-09-2024 Basophils (Bld) [#/Vol] 0.1 10*3/uL Normal 0.0-0.2 [facility] Comment on above: Result Comment: PERF ORMED BY: [facility] [address] [place] [address] PATHOLOGIST BUILDING [employer] HELPER ALINA VELASQUEZ M.D. Performed By: #### C BC, CMP, CK, HS TROP #### [facility] [address] Basophils/100 WBC (Bld) 0.8 % Normal . [facility] Comment on above: Performed By: #### C BC, CMP, CK, HS TROP #### [address] Eosinophils (Bld) [#/Vol] 0.2 10*3/uL Normal 0.0-0.45 [facility] Comment on above: Performed By: #### C BC, CMP, CK, HS TROP #### [address] Eosinophils/100 WBC (Bld) 3.0 % Normal . [facility] Comment on above: Performed By: #### C BC, CMP, CK, HS TROP #### [address] Erythrocyte distribution width (RBC) [Ratio] 15.8 % High 11.9-15.3 [facility] Comment on above: Performed By: #### C BC, CMP, CK, HS TROP #### [address] Hematocrit (Bld) [Volume fraction] 32.9 % Low 34.0-46.4 [facility] Comment on above: Performed By: #### C BC, CMP, CK, HS TROP #### [address] Hemoglobin (Bld) [Mass/Vol] 11.2 g/dL Low 11.8-15.4 [facility] Comment on above: Performed By: #### C BC, CMP, CK, HS TROP #### [place] [address] [place] Lymphocytes (Bld) [#/Vol] 1.6 10*3/uL Normal 1.00-4.8 [facility] Comment on above: Performed By: #### C BC, CMP, CK, HS TROP #### [place] [address] [place] Lymphocytes/100 WBC (Bld) 22.2 % Normal . [facility] Comment on above: Performed By: #### C BC, CMP, CK, HS TROP #### [address] MCH (RBC) [Entitic mass] 28.3 pg Normal 24.7-34.3 [facility] Comment on above: Performed By: #### C BC, CMP, CK, HS TROP #### [address] MCV (RBC) [Entitic vol] 83.3 fL Normal 80-100 [facility] Comment on above: Performed By: #### C BC, CMP, CK, HS TROP #### [address] Mean Corpuscular HGB Conc 33.9 g/dL Normal 32.0-35.0 [facility] Comment on above: Performed By: #### C BC, CMP, CK, HS TROP #### [address] Monocytes (Bld) [#/Vol] 0.4 10*3/uL Normal 0.0-0.8 [facility] Comment on above: Performed By: #### C BC, CMP, CK, HS TROP #### [address] Monocytes/100 WBC (Bld) 21.77 % High 0.00-20.00 [facility] Comment on above: Result Comment: For adults in ED, MDW > 20.0 may be associated with a higher risk of sepsis during the first 12 hrs of hospital admission Performed By: #### C BC, CMP, CK, HS TROP #### [address] Monocytes/100 WBC (Bld) 5.8 % Normal . [facility] Comment on above: Performed By: #### C BC, CMP, CK, HS TROP #### [place] [address] [place] Neutrophils (Bld) [#/Vol] 4.8 10*3/uL Normal 1.8-7.7 [facility] Comment on above: Performed By: #### C BC, CMP, CK, HS TROP #### [place] [address] [place] Neutrophils/100 WBC (Bld) 68.2 % Normal . [facility] Comment on above: Performed By: #### C BC, CMP, CK, HS TROP #### [address] NRBC% 0.1 /100{WBC} Normal 0-0.5 [facility] Comment on above: Performed By: #### C BC, CMP, CK, HS TROP #### [address] Platelet mean volume (Bld) [Entitic vol] 7.6 fL Normal 6.3-10.7 [facility] Comment on above: Performed By: #### C BC, CMP, CK, HS TROP #### [address] Platelets (Bld) [#/Vol] 336 10*3/uL Normal 150-450 [facility] Comment on above: Performed By: #### C BC, CMP, CK, HS TROP #### [address] RBC (Bld) [#/Vol] 3.95 10*6/uL Normal 3.60-5.00 [facility] Comment on above: Performed By: #### C BC, CMP, CK, HS TROP #### [address] WBC (Bld) [#/Vol] 7.1 10*3/uL Normal 3.8-11.6 [facility] Comment on above: Performed By: #### C BC, CMP, CK, HS TROP #### [address] Comprehensive Metabolic Pane mazin 09-09-2024 Albumin [Mass/Vol] 3.4 g/dL Low 3.5-5.7 [facility] Comment on above: Performed By: #### C BC, CMP, CK, HS TROP #### [address] Albumin/Globulin [Mass ratio] 1.1 {ratio} Normal [facility] Comment on above: Performed By: #### C BC, CMP, CK, HS TROP #### [facility] [address] [place] [address] [place] ALP [Catalytic activity/Vol] 41 U/L Normal 34-104 [facility] Comment on above: Performed By: #### C BC, CMP, CK, HS TROP #### [facility] [address] ALT [Catalytic activity/Vol] 11 U/L Normal 7-52 [facility] Comment on above: Performed By: #### C BC, CMP, CK, HS TROP #### [address] Anion gap [Moles/Vol] 7.7 mmol/L Normal 6.0-15.0 [facility] Comment on above: Performed By: #### C BC, CMP, CK, HS TROP #### [address] AST [Catalytic activity/Vol] 17 U/L Normal 13-39 [facility] Comment on above: Performed By: #### C BC, CMP, CK, HS TROP #### [place] [address] [place] Bilirubin [Mass/Vol] 0.3 mg/dL Normal 0.3-1.0 [facility] Comment on above: Performed By: #### C BC, CMP, CK, HS TROP #### [place] [address] [place] Calcium [Mass/Vol] 8.5 mg/dL Low 8.6-10.3 [facility] Comment on above: Performed By: #### C BC, CMP, CK, HS TROP #### [place] [address] [place] Chloride [Moles/Vol] 104 mmol/L Normal 98-107 [facility] Comment on above: Performed By: #### C BC, CMP, CK, HS TROP #### [place] [address] [place] CO2 [Moles/Vol] 26.0 mmol/L Normal 21.0-31.0 [facility] Comment on above: Performed By: #### C BC, CMP, CK, HS TROP #### [address] Creatinine [Mass/Vol] 0.60 mg/dL Normal 0.60-1.20 [facility] Comment on above: Performed By: #### C BC, CMP, CK, HS TROP #### [place] [address] [place] Creatinine Clr Calc Pharmacy 197.99 Normal [facility] Comment on above: Result Comment: PERF ORMED BY: [place] [address] PATHOLOGIST BUILDING [employer] HELPER ALINA VELASQUEZ M.D. Performed By: #### C BC, CMP, CK, HS TROP #### [address] GFR/1.73 sq M.predicted MDRD (S/P/Bld) [Vol rate/Area] mL/min/{1.73_m2} Normal [facility] Comment on above: Performed By: #### C BC, CMP, CK, HS TROP #### [address] Globulin (S) [Mass/Vol] 3.2 g/dL Normal [facility] Comment on above: Performed By: #### C BC, CMP, CK, HS TROP #### [address] Glucose [Mass/Vol] 96 mg/dL Normal 70-100 [facility] Comment on above: Result Comment: [place] Glucose Reference Range is dependent on time and content of last meal. Glucose of more than 200 mg/dL in a nonstressed, ambulatory subject supports the diagnosis of Diabetes Mellitus. ADA recommended reference range Performed By: #### C BC, CMP, CK, HS TROP #### [address] Potassium [Moles/Vol] 3.7 mmol/L Normal 3.5-5.1 [facility] Comment on above: Performed By: #### C BC, CMP, CK, HS TROP #### [facility] [address] [place] [address] [place] Protein [Mass/Vol] 6.6 g/dL Normal 6.4-8.9 [facility] Comment on above: Performed By: #### C BC, CMP, CK, HS TROP #### [facility] [address] [place] [address] [place] Sodium [Moles/Vol] 134 mmol/L Low 136-145 [facility] Comment on above: Performed By: #### C BC, CMP, CK, HS TROP #### [facility] [address] [place] [address] [place] Urea nitrogen [Mass/Vol] 9 mg/dL Normal 7-25 [facility] Comment on above: Performed By: #### C BC, CMP, CK, HS TROP #### [facility] [address] [place] [id number] [place] Creatine Kinaseon 09-09-2024 CK [Catalytic activity/Vol] 26 U/L Low 30-223 [facility] Comment on above: Result Comment: PERF ORMED BY: [place] [address] PATHOLOGIST BUILDING [employer] HELPER ALINA VELASQUEZ M.D. Performed By: #### C BC, CMP, CK, HS TROP #### [address] [address] [facility] Creatine kinase [Enzymatic a ctivity/volume] in Serum or PlasmaOrdered By: Jenn Sapp on 09-09-2024 CK [Catalytic activity/Vol] Creatine kinase [Enzymatic activity/volume] in Serum or Plasma Low 30-223 [facility] Creatinine [Mass/volume] in Serum or PlasmaOrdered By: Jenn Sapp on 09-09-2024 Creatinine [Mass/Vol] Creatinine [Mass/v olume] in Serum or Plasma 0.60-1.20 [facility] ECG 12 lead ECGon 09-09-2024 ECG 12 lead ECG [facility] [place] [address] [place] [address] Electrocardiograph Report Signed Patient: Rose Mary Schneider MR#: [id number] : 2005 Acct:[id number] Age/Sex: 18 / F ADM Date: 09/09/24 Loc: ER Room: Type: [facility] ER Attending Dr: Ordering Provider: Jenn Sapp [...] was found Confirmed by JENN SAPP DO ([id number]) on 09/09/2024 4:32:05 PM Referred By: Electronically Signed By: JENN SAPP DO Transcribed By: MUS Signed By Jenn Sapp DO 09/09 1632 Normal [facility] Eosinophils Auto (Bld) [#/Vo l]Ordered By: Jenn Sapp on 09-09-2024 Eosinophils (Bld) [#/Vol] Automated eosinophil count 0.0-0.45 [facility] Eosinophils/100 WBC Auto (Bl d)Ordered By: Jenn Sapp on 09-09-2024 Eosinophils/100 WBC (Bld) Automated eosinophil % . [facility] Erythrocyte distribution wid th Auto (RBC) [Ratio]Ordered By: Jenn Sapp on 09-09-2024 Erythrocyte distribution width (RBC) [Ratio] Erythrocyte distribution width [Ratio] by Automated count High 11.9-15.3 [facility] Globulin Calc (S) [Mass/Vol] Ordered By: Jenn Sapp on 09-09-2024 Globulin (S) [Mass/Vol] Serum globulin measurement by calculation (mass/volume) [facility] Glucose [Mass/volume] in Ser um or PlasmaOrdered By: Jenn Sapp on 09-09-2024 Glucose [Mass/Vol] Glucose [Mass/volume ] in Serum or Plasma 70-100 [facility] Comment on above: ADA recommended [...] of Blood by Automated count Low 34.0-46.4 [facility] Hemoglobin [Mass/volume] in BloodOrdered By: Jenn Sapp on 09-09-2024 Hemoglobin (Bld) [Mass/Vol] Hemoglobin [Mass/volume] in Blood Low 11.8-15.4 [facility] Leukocytes [#/volume] correc gamaliel for nucleated erythrocytes in Blood by Automated counOrdered By: Jenn Sapp on 09-09-2024 WBC corrected for nucl RBC Auto (Bld) [#/Vol] Leukocytes [#/volume] corrected for nucleated erythrocytes in Blood by Automated coun 3.8-11.6 [facility] Lymphocytes Auto (Bld) [#/Vo l]Ordered By: Jenn Sapp on 09-09-2024 Lymphocytes (Bld) [#/Vol] Lymphocytes [#/volume] in Blood by Automated count 1.00-4.8 [facility] Lymphocytes/100 WBC Auto (Bl d)Ordered By: Jenn Sapp on 09-09-2024 Lymphocytes/100 WBC (Bld) Lymphocytes/100 leukocytes in Blood by Automated count . [facility] MCH Auto (RBC) [Entitic mass ]Ordered By: Jenn Sapp on 09-09-2024 MCH (RBC) [Entitic mass] MCH [Entitic mass] by Automated count 24.7-34.3 [facility] MCHC Auto (RBC) [Mass/Vol]Or dered By: Jenn Sapp on 09-09-2024 MCHC (RBC) [Mass/Vol] MCHC [Mass/volume] by Automated count 32.0-35.0 [facility] MCV Auto (RBC) [Entitic vol] Ordered By: Jenn Sapp on 09-09-2024 MCV (RBC) [Entitic vol] MCV [Entitic vol ume] by Automated count 80-100 [facility] Monocyte distribution width [Entitic volume] in Blood by AutomatedOrdered By: Jenn Sapp on 09-09-2024 Monocyte distribution width Auto (Bld) [Entitic vol] Monocyte distribution width [Entitic volume] in Blood by Automated High 0.00-20.00 [facility] Comment on above: For adults in ED, MD W > 20.0 may be associated with a higher risk of sepsis during the first 12 hrs of hospital admission Monocytes Auto (Bld) [#/Vol] Ordered By: Jenn Sapp on 09-09-2024 Monocytes (Bld) [#/Vol] Automated blood monocyte count 0.0-0.8 [facility] Monocytes/100 WBC Auto (Bld) Ordered By: Jenn Sapp on 09-09-2024 Monocytes/100 WBC (Bld) Automated monocyte % . [facility] Neutrophils Auto (Bld) [#/Vo l]Ordered By: Jenn Sapp on 09-09-2024 Neutrophils (Bld) [#/Vol] Neutrophils [#/volume] in Blood by Automated count 1.8-7.7 [facility] Neutrophils/100 WBC Auto (Bl d)Ordered By: Jenn Sapp on 09-09-2024 Neutrophils/100 WBC (Bld) Automated neutrophil % . [facility] No Panel InformationOrdered By: Jenn Sapp on 09-09-2024 Estimated GFR (CKD-EPI) > 60.0 mL/Min [facility] Creatinine Clearance (Chem 197.99 [facility] Nucleated erythrocytes [Pres ence] in Blood by Automated countOrdered By: Jenn Sapp on 09-09-2024 Nucleated RBC Auto Ql (Bld) Nucleated erythrocytes [Presence] in Blood by Automated count 0-0.5 [facility] Platelet mean volume Auto (B ld) [Entitic vol]Ordered By: Jenn Sapp on 09-09-2024 Platelet mean volume (Bld) [Entitic vol] Platelet mean volume [Entitic volume] in Blood by Automated count 6.3-10.7 [facility] Platelets Auto (Bld) [#/Vol] Ordered By: Jenn Sapp on 09-09-2024 Platelets (Bld) [#/Vol] Platelets [#/vol ume] in Blood by Automated count 150-450 [facility] Potassium [Moles/volume] in Serum or PlasmaOrdered By: Jenn Sapp on 02-07-2025 Potassium [Moles/Vol] Potassium [Moles/v olume] in Serum or Plasma 3.5-5.1 [facility] Protein [Mass/volume] in Ser um or PlasmaOrdered By: Jenn Sapp on 09-09-2024 Protein [Mass/Vol] Protein [Mass/volume ] in Serum or Plasma 6.4-8.9 [facility] RBC Auto (Bld) [#/Vol]Ordere d By: Jenn Sapp on 09-09-2024 RBC (Bld) [#/Vol] Erythrocytes [#/volu me] in Blood by Automated count 3.60-5.00 [facility] Serum or plasma albumin/glob ulin mass ratioOrdered By: Jenn Sapp on 09-09-2024 Albumin/Globulin [Mass ratio] Serum or plasma albumin/globulin mass ratio [facility] Serum or plasma anion gap de terminationOrdered By: Jenn Sapp on 09-09-2024 Anion gap [Moles/Vol] Serum or plasma an ion gap determination 6.0-15.0 [facility] Sodium [Moles/volume] in Ser um or PlasmaOrdered By: Jenn Sapp on 09-09-2024 Sodium [Moles/Vol] Sodium [Moles/volume ] in Serum or Plasma Low 136-145 [facility] Troponin I High Sensitivityo n 09-09-2024 Troponin I High Sensitivity <3 Normal 0-15 [facility] Comment on above: Result Comment: The Troponin units of report have been changed to meet the Chest Pain Accreditation requirement, element EC5.M1l2. Troponin units are changed from pg/ml to ng/L. Also, the decimal is removed and results are in whole numbers. PERFORMED BY: [place] [address] PATHOLOGIST BUILDING CARPENTER HELPER ALINA VELASQUEZ M.D. Performed By: #### C BC, CMP, CK, HS TROP #### [address] Troponin I.cardiac [Mass/vol ume] in Serum or Plasma by Detection limit <= 0.01 ng/Ordered By: Jenn Sapp on 09-09-2024 Troponin I.cardiac DL <= 0.01 ng/mL [Mass/Vol] Troponin I.cardiac [Mass/volume] in Serum or Plasma by Detection limit <= 0.01 ng/ 0-15 [facility] Comment on above: The Troponin units o f report have been changed to meet the Chest Pain Accreditation requirement, element EC5.M1l2. Troponin units are changed from pg/ml to ng/L. Also, the decimal is removed and results are in whole numbers. Urea nitrogen [Mass/volume] in Serum or PlasmaOrdered By: Jenn Sapp on 09-09-2024 Urea nitrogen [Mass/Vol] Urea nitrogen [Mass/volume] in Serum or Plasma 02-24 [facility] WBC Auto (Bld) [#/Vol]Ordere d By: Jenn Sapp on 09-09-2024 WBC (Bld) [#/Vol] Leukocytes [#/volume ] in Blood by Automated count 3.8-11.6 [facility] BOX TESTon 08-31-2024 BOX TEST SENT OUT [facility] BOX1 [facility] BOX2 08/31/24 [facility] HCG ( test) Ql (U)o n 08-25-2024 Interpretation and review of laboratory results Abnormal [facility] Preg Test, Ur Positive Negative [facility] US OB TRANSVAGINALon 025 US OB TRANSVAGINAL [...] Negative Negative - 4(70) +++ mg/dL [facility] Blood, UA Negative Negative - 50 Balwinder/mcL [facility] Clarity, UA Clear [facility] Color, UA Yellow [facility] Glucose, UA Negative Negative - 2000(110) ++++ mg/dL [facility] Interpretation and review of laboratory results Normal [facility] Ketones, UA Negative Negative - 160(16) ++++ mg/dL [facility] Leukocytes, UA Trace Negative - 500+++ Uzair/mcL [facility] Nitrite, UA Negative Negative - Positive [facility] pH, UA 7 5 - 9 [facility] Protein, UA Negative Negative - 2000(20) ++++ mg/dL [facility] Spec Grav, UA 1.025 1 - 1.03 [facility] Urobilinogen, UA 0.2 0.2 - 12 mg/dL [facility] ED Note-Physicianon 08-22-19 ED Note-Physician ED Note-Physician [...] to morning sickness. She has not seen SURG PHYSICIAN ASST yet but is planning on doing so [...] of weeks. Is waiting to see her SURG PHYSICIAN ASST. Has also had cough and congestion has [...] She will have close follow-up with her SURG PHYSICIAN ASST as well as her PCP. We discussed [...] q4hr, # 20 tab(s), Refills(s) 0, Pharmacy: [facility]/pharmacy #[id number], 170, cm, 08/21/24 16:58:00 EST, Height/Length Dosing, 11.6, (more content not included)... Normal [facility] Comment on above: Result Comment: Elec tronically Signed By: Pablo Fu PA-C\.br\Date and Time Signed: 08/21/24 23:55 EST\.br\Electronically Co-Signed By: Migue Farrell M.D..br\Date and Time Co-Signed: 08/22/24 07:26 EST Grp A Strp PCRon 08-22-2024 Group A Strep Negative Normal Negative [facility] Comment on above: Order Comment: Order Added on by Discern Rule. Result Comment: Test ing performed using DNA amplification. Performed By: #### 1 [id number] #### [facility] [address] [place] [address] Grp A Strp Intrl Ctrl Pass Normal [facility] Comment on above: Order Comment: Order Added on by Discern Rule. Performed By: #### 1 [id number] #### [facility] [address] [place] [address] BMPon 08-21-2024 Anion gap [Moles/Vol] 12 mmol/L Normal 6-16 [facility] Comment on above: Performed By: #### 2 [id number] #### [facility] [address] [place] [address] Calcium [Mass/Vol] 9.4 mg/dL Normal 8.9-11.1 [facility] Comment on above: Performed By: #### 2 [id number] #### [facility] [address] [place] [address] Chloride [Moles/Vol] 100 mmol/L Low 101-111 [facility] Comment on above: Performed By: #### 2 [id number] #### [facility] [address] [place] [address] CO2 [Moles/Vol] 25 mmol/L Normal 21-31 [facility] Comment on above: Performed By: #### 2 [id number] #### [facility] [address] [place] [address] Creatinine [Mass/Vol] 0.7 mg/dL Normal 0.5-1.3 [facility] Comment on above: Performed By: #### 2 [id number] #### [facility] [address] [place] [address] Glucose [Mass/Vol] 79 mg/dL Normal 55-199 [facility] Comment on above: Performed By: #### 2 [id number] #### [facility] [address] [place] [address] Potassium [Moles/Vol] 3.7 mmol/L Normal 3.5-5.3 [facility] Comment on above: Performed By: #### 2 [id number] #### [facility] [address] [place] [address] Sodium [Moles/Vol] 133 mmol/L Low 135-145 [facility] Comment on above: Performed By: #### 2 [id number] #### [facility] [address] [place] [address] Urea nitrogen [Mass/Vol] 10 mg/dL Normal 5-21 [facility] Comment on above: Performed By: #### 2 [id number] #### [facility] [address] [place] [address] Urea nitrogen/Creatinine [Mass ratio] 14 No Units Normal 10-20 [facility] Comment on above: Performed By: #### 2 [id number] #### [facility] [address] [place] [address] CBC w/ Auto Diffon 5 Basophils/100 WBC (Bld) 0.3 % Normal 0.0-2.0 [facility] Comment on above: Performed By: #### 2 [id number] #### [facility] [address] [place] [address] Basophils/Leukocytes Auto (Bld) [Pure # fraction] 0.0 E9/L Normal 0.0-0.2 [facility] Comment on above: Performed By: #### 2 822126 #### [facility] [address] [place] [address] Eosinophils (Bld) [#/Vol] 0.2 E9/L Normal 0.0-0.5 [facility] Comment on above: Performed By: #### 2 [id number] #### [facility] [address] [place] [address] Eosinophils/100 WBC (Bld) 2.6 % Normal 0.0-8.0 [facility] Comment on above: Performed By: #### 2 082710 #### [facility] [address] [place] [address] Erythrocyte distribution width (RBC) [Ratio] 15.7 % High 10.9-14.2 [facility] Comment on above: Performed By: #### 2 [id number] #### [facility] [address] [place] [address] Hematocrit (Bld) [Volume fraction] 38.3 % Normal 34.0-46.0 [facility] Comment on above: Performed By: #### 2 [id number] #### [facility] [address] [place] [address] Hemoglobin (Bld) [Mass/Vol] 13.0 g/dL Normal 12.0-16.0 [facility] Comment on above: Performed By: #### 2 [id number] #### [facility] [address] [place] [address] Lymphocytes (Bld) [#/Vol] 1.8 E9/L Normal 1.0-4.0 [facility] Comment on above: Performed By: #### 2 [id number] #### [facility] [address] [place] [address] Lymphocytes/100 WBC (Bld) 27.3 % Normal 14.0-50.0 [facility] Comment on above: Performed By: #### 2 [id number] #### [facility] [address] [place] [address] MCH (RBC) [Entitic mass] 27.7 pg Normal 27.0-34.0 [facility] Comment on above: Performed By: #### 2 805874 #### [facility] [address] [place] [address] MCHC (RBC) [Mass/Vol] 33.9 g/dL Normal 31.4-36.0 [facility] Comment on above: Performed By: #### 2 [id number] #### [facility] [address] [place] [address] MCV (RBC) [Entitic vol] 81.8 fL Normal 80.0-100.0 [facility] Comment on above: Performed By: #### 2 [id number] #### [facility] [address] [place] [address] Monocytes (Bld) [#/Vol] 0.5 E9/L Normal 0.2-1.0 [facility] Comment on above: Performed By: #### 2 [id number] #### [facility] [address] [place] [address] Neutrophils (Bld) [#/Vol] 4.2 E9/L Normal 2.0-7.5 [facility] Comment on above: Performed By: #### 2 [id number] #### [facility] [address] [place] [address] Neutrophils/100 WBC (Bld) 61.9 % Normal 36.0-75.0 [facility] Comment on above: Performed By: #### 2 [id number] #### [facility] [address] [place] [address] Platelet 446.0 E9/L Normal 150.0-500. 0 [facility] Comment on above: Performed By: #### 2 726184 #### [facility] [address] [place] [address] Platelet mean volume (Bld) [Entitic vol] 7.4 fL Normal 6.4-10.8 [facility] Comment on above: Performed By: #### 2 572117 #### [facility] [address] [place] [address] RBC (Bld) [#/Vol] 4.7 E12/L Normal 4.3-5.9 [facility] Comment on above: Performed By: #### 2 670975 #### [facility] [address] [place] [address] WBC corrected for nucl RBC Auto (Bld) [#/Vol] 6.8 E9/L Normal 4.0-11.0 [facility] Comment on above: Performed By: #### 2 [id number] #### [facility] [address] [place] [address] CHEMISTRYOrdered By: SYSTEM SYSTEM on 08-21-2024 Albumin [...] 2024 ED Clinical Summary ED Clinical Summary [place] [id number] ED Clinical Summary Person Information Name: ROSE MARY SCHNEIDER [facility]ly[facility] Age: 18 Years : 2005 Sex: Female Language: Kazakh PCP: Fredi Ellington MD Marital Status: Single [...] 08/21/2024 20:38:01 ADDRESS: [address] [place] [id number] PHYS DOC NOTES: MEDICAL INFORMATION: Prescriptions Given: New Medications [id number] [address] [facility] [place], [place] [id number], [phone] promethazine (promethazine 12.5 mg oral tablet) 1 [...] Follow up: With: Address: When: Cheri Martin [facility] [address], [place], [place] [id number] Business (1) In 3 days 08/24/2024 With: Address: When: Fredi Ellington [facility], [place] [address] Business (1) In 3 days 08/24/2024 DIAGNOSIS: Nausea and vomiting in ; Viral URI with cough Normal [facility] ED Patient Summaryon 025 ED Patient Summary ED Patient Summary [place] [id number] Patient Discharge Instructions Person Information Name: ROSE MARY SCHNEIDER Age: 18 Years Arrival Date: 08/21/2024 16:53:26 Discharge Diagnosis: Nausea and vomiting in ; Viral URI with cough Primary Care Physician: Fredi Ellington MD Provider Information Primary Provider: Migue Farrell M.D. Advanced Shuttle Preparation Supervisor:Pablo Fu PA-C The exam and treatment you received in the Emergency Department were for an urgent problem and are not intended as complete care. It is important that you follow up with a doctor, nurse practitioner, or physician???s sales assistant displays for ongoing care. If your symptoms become [...] Follow-up Instructions: With: Address: When: Cheri Joiner [address] [place], [place] [id number] Business (1) In 3 days 08/24/2024 With: Address: When: Fredi Rakel [address] [place], [place] [id number] [facility] (1) In 3 days 08/24/2024 In the event that this physician does not participate in your insurance network, please consult with your insurance company to find a nearby participating provider. Patient Education Materials: Upper Respiratory Infection, Adult; Morning Sickness A MESSAGE TO ALL PATIENTS REGARDING OPIOIDS PRESCRIPTION OPIOIDS: WHAT YOU NEED TO KNOW Prescription opioids can be used to help relieve ianwkaef-yr-qmzxyl pain and are often prescribed following a [...] Administration (www.f (more content not included)... Normal [facility] Extra Blueon 08-21-2024 Tube Collected Plasma Yes Invalid Interpretation Code [facility] Comment on above: Performed By: #### 1 [id number] #### [facility] [address] [place] [address] HEMATOLOGYOrdered By: SYSTEM SYSTEM on 08-21-2024 Basophils/100 [...] 08-21-2024 Albumin [Mass/Vol] 4.1 g/dL Normal 3.3-5.0 [facility] Comment on above: Performed By: #### 2 [id number] #### [facility] [address] [place] [address] Albumin/Globulin (S) [Mass conc ratio] 1.1 Normal 1.1-2.2 [facility] Comment on above: Performed By: #### 2 [id number] #### [facility] [address] [place] [address] ALP [Catalytic activity/Vol] 54 Int._Unit/L Normal 21-98 [facility] Comment on above: Performed By: #### 2 [id number] #### [facility] [address] [place] [address] ALT No additional P-5'-P [Catalytic activity/Vol] 32 Int._Unit/L Normal 6-46 [facility] Comment on above: Performed By: #### 2 [id number] #### [facility] [address] [place] [address] AST [Catalytic activity/Vol] 27 Int._Unit/L Normal 5-43 [facility] Comment on above: Performed By: #### 2 [id number] #### [facility] [address] [place] [address] Bilirubin [Mass/Vol] 0.7 mg/dL Normal 0.0-1.1 [facility] Comment on above: Performed By: #### 2 778078 #### [facility] [address] [place] [address] Bilirubin.direct [Mass/Vol] 0.0 mg/dL Normal 0.0-0.4 [facility] Comment on above: Performed By: #### 2 [id number] #### [facility] [address] [place] [address] Bilirubin.indirect [Mass or moles/Vol] 0.7 mg/dL Normal 0.1-0.9 [facility] Comment on above: Performed By: #### 2 979397 #### [facility] [address] [place] [address] Globulin (S) [Mass/Vol] 3.8 g/dL Normal 1.4-4.0 [facility] Comment on above: Performed By: #### 2 799271 #### [facility] [address] [place] [address] Protein [Mass/Vol] 7.9 g/dL High 6.0-7.8 [facility] Comment on above: Performed By: #### 2 192598 #### [facility] [address] [place] [address] Influenza A&B Agon 5 Influenzae A Ag Negative Normal Negative [facility] Comment on above: Performed By: #### 1 [id number] #### [facility] [address] [place] [address] Influenzae B Ag Negative Normal Negative [facility] Comment on above: Result Comment: Test sensitivity and specificity vary for age group, specimen type, antigen types, and prevalence of disease. Test results must be evaluated in conjunction with other clinical data available to the physician. Individuals who received nasally administered Influenza A vaccine may have positive test results up to 3 days after vaccination. Performed By: #### 1 [id number] #### [facility] [address] [place] [address] Lipase Levelon 08-21-2024 Lipase [Catalytic activity/Vol] 20 U/L Normal 13-58 [facility] Comment on above: Performed By: #### 2 [id number] #### [facility] [address] [place] [address] MICRO OTHER TESTSOrdered By: Rafiq Norris on 08-21-2024 Influenzae A Ag Negative (08/21/24 5:50 PM) Normal Negative [facility] Man Sero Influenzae B Ag Negative 2 (08/21/24 5:50 PM) Normal Negative [facility] Comment on above: Interpretive Data: [...] NEG Ctl Pass (08/21/24 5:50 PM) Normal [facility] Rapid COV Int POS Ctl Pass (08/21/24 5:50 PM) Normal [facility] Sero S. pyogenes Ag IA.rapid Ql (Throat) Negative (08/21/24 5:50 PM) Normal Negative [facility] Sero SARS-CoV+SARS-CoV-2 (COVID-19) Ag IA.rapid Ql (Resp) Not Detected 3 (08/21/24 5:50 PM) Normal Not Detected [facility] Comment on above: Interpretive Data: T he [employer] Veritor System for Rapid Detection of SARS-CoV-2 [...] terminated or revoked sooner. Rapid COVID Antigen ([facility])on 08-21-2024 Rapid COV Int NEG Ctl Pass Normal [facility] Comment on above: Performed By: #### 2 [id number] #### [facility] [address] [place] [address] Rapid COV Int POS Ctl Pass Normal [facility] Comment on above: Performed By: #### 2 [id number] #### [facility] [address] [place] [address] SARS-CoV+SARS-CoV-2 (COVID-19) Ag IA.rapid Ql (Resp) Not detected Normal Not Detected [facility] Comment on above: Result Comment: The BD [...] For in vitro diagnostic use. In the [facility], only for use under an Emergency Use [...] other viruses or pathogens; and, in the [facility], this test is only authorized for the duration of the declaration that circumstances exist justifying the authorization of emergency use of in vitro diagnostics for detection and/or diagnosis of the virus that causes COVID-19 under Section 564(b)(1) of the Act, 21 U.S.C. ??? 360bbb-3(b)(1), unless the authorization is terminated or revoked sooner. Performed By: #### 2 [id number] #### [facility] [address] [place] [address] Rapid Strep w/rfxon 08-21-19 25 S. pyogenes Ag IA.rapid Ql (Throat) Negative Normal Negative [facility] Comment on above: Performed By: #### 2 [id number] #### [facility] [address] [place] [address] UA with Cult Rflxon 08-21-19 25 Bilirubin Ql (U) Negative Normal Negative [facility] Comment on above: Performed By: #### 4 [id number] #### [facility] [address] [place] [address] Clarity (U) Clear Normal Clear [facility] Comment on above: Performed By: #### 4 [id number] #### [facility] [address] [place] [address] Color (U) Yellow Normal Yellow [facility] Comment on above: Result Comment: Micr oscopic readings are only performed on those samples that meet specific criteria set forth by [facility]. Performed By: #### 4 [id number] #### [facility] [address] [place] [address] Glucose Ql (U) Negative Normal Negative [facility] Comment on above: Performed By: #### 4 [id number] #### [facility] [address] [place] [address] Hemoglobin Auto test strip (U) [Mass/Vol] Negative Normal Negative [facility] Comment on above: Performed By: #### 4 [id number] #### [facility] [address] [place] [address] Ketones Auto test strip Ql (U) 1+ mg/dL Abnormal Negative [facility] Comment on above: Performed By: #### 4 [id number] #### [facility] [address] [place] [address] Leukocyte esterase Auto test strip Ql (U) Negative Normal Negative [facility] Comment on above: Performed By: #### 4 [id number] #### [facility] [address] [place] [address] Nitrite Auto test strip Ql (U) Negative Normal Negative [facility] Comment on above: Performed By: #### 4 [id number] #### [facility] [address] [place] [address] pH (U) 6.0 [pH] Invalid Interpretation Code 5.0-9.0 [facility] Comment on above: Performed By: #### 4 [id number] #### [facility] [address] [place] [address] Protein Ql (U) Negative Normal Negative [facility] Comment on above: Performed By: #### 4 [id number] #### [facility] [address] [place] [address] Specific gravity (U) [Rel density] 1.013 Invalid Interpretation Code 1.005-1.03 0 [facility] Comment on above: Performed By: #### 4 [id number] #### [facility] [address] [place] [address] Urobilinogen (U) [Mass/Vol] Negative Normal Negative [facility] Comment on above: Performed By: #### 4 [id number] #### [facility] [address] [place] [address] Type of Urine collection method Clean Catch Normal [facility] Comment on above: Performed By: #### 4 [id number] #### [facility] [address] [place] [address] URINALYSISOrdered By: SYSTEM SYSTEM on 08-21-2024 Bilirubin Ql (U) Negative Normal Negativemg /dL [facility] UA Auto SS Clarity (U) Clear (08/21/24 6:54 PM) Normal Clear [facility] UA Auto SS Color (U) Yellow 1 (08/21/24 6:54 PM) Normal Yellow [facility] UA Auto SS Comment on above: Interpretive Data: M icroscopic readings are only performed on those samples that meet specific criteria set forth by [facility]. Glucose Ql (U) Negative Normal Negativemg [...] Urobilinogen (U) [Mass/Vol] Negative Normal Negativemg /dL [facility] UA Auto SS URINALYSISOrdered By: Pablo Fu on 08-21-2024 UA Spec Desc Clean Catch (08/21/24 6:54 PM) Normal [facility] UA Auto SS eGFRon 08-21-2024 eGFR 127 mL/min/1.73 m2 Normal >=59 [facility] Comment on above: Performed By: #### 1 [id number] #### [facility] [address] [place] [address] BMPon 06-27-2024 Anion gap [Moles/Vol] 9 mmol/L Normal 6-16 [facility] Comment on above: Performed By: #### 2 [id number] #### [facility] [address] [place] [address] Calcium [Mass/Vol] 8.6 mg/dL Low 8.9-11.1 [facility] Comment on above: Performed By: #### 2 [id number] #### [facility] [address] [place] [address] Chloride [Moles/Vol] 106 mmol/L Normal 101-111 [facility] Comment on above: Performed By: #### 2 [id number] #### [facility] [address] [place] [address] CO2 [Moles/Vol] 29 mmol/L Normal 21-31 [facility] Comment on above: Performed By: #### 2 [id number] #### [facility] [address] [place] [address] Creatinine [Mass/Vol] 0.8 mg/dL Normal 0.5-1.3 [facility] Comment on above: Performed By: #### 2 [id number] #### [facility] [address] [place] [address] Glucose [Mass/Vol] 91 mg/dL Normal 55-199 [facility] Comment on above: Performed By: #### 2 [id number] #### [facility] [address] [place] [address] Potassium [Moles/Vol] 3.2 mmol/L Low 3.5-5.3 [facility] Comment on above: Performed By: #### 2 [id number] #### [facility] [address] [place] [address] Sodium [Moles/Vol] 141 mmol/L Normal 135-145 [facility] Comment on above: Performed By: #### 2 [id number] #### [facility] [address] [place] [address] Urea nitrogen [Mass/Vol] 9 mg/dL Normal 5-21 [facility] Comment on above: Performed By: #### 2 [id number] #### [facility] [address] [place] [address] Urea nitrogen/Creatinine [Mass ratio] 11 No Units Normal 10-20 [facility] Comment on above: Performed By: #### 2 [id number] #### [facility] [address] [place] [address] CBC w/ Auto Diffon 06-27- 4 Basophils/100 WBC (Bld) 0.4 % Normal 0.0-2.0 [facility] Comment on above: Performed By: #### 2 [id number] #### [facility] [address] [place] [address] Basophils/Leukocytes Auto (Bld) [Pure # fraction] 0.0 E9/L Normal 0.0-0.2 [facility] Comment on above: Performed By: #### 2 [id number] #### [facility] [address] [place] [address] Eosinophils (Bld) [#/Vol] 0.2 E9/L Normal 0.0-0.5 [facility] Comment on above: Performed By: #### 2 [id number] #### [facility] [address] [place] [address] Eosinophils/100 WBC (Bld) 3.6 % Normal 0.0-8.0 [facility] Comment on above: Performed By: #### 2 612060 #### [facility] [address] [place] [address] Erythrocyte distribution width (RBC) [Ratio] 14.7 % High 10.9-14.2 [facility] Comment on above: Performed By: #### 2 [id number] #### [facility] [address] [place] [address] Hematocrit (Bld) [Volume fraction] 36.6 % Normal 34.0-46.0 [facility] Comment on above: Performed By: #### 2 [id number] #### [facility] [address] [place] [address] Hemoglobin (Bld) [Mass/Vol] 12.4 g/dL Normal 12.0-16.0 [facility] Comment on above: Performed By: #### 2 [id number] #### [facility] [address] [place] [address] Lymphocytes (Bld) [#/Vol] 2.3 E9/L Normal 1.0-4.0 [facility] Comment on above: Performed By: #### 2 580891 #### [facility] [address] [place] [address] Lymphocytes/100 WBC (Bld) 39.0 % Normal 14.0-50.0 [facility] Comment on above: Performed By: #### 2 708422 #### [facility] [address] [place] [address] MCH (RBC) [Entitic mass] 28.0 pg Normal 27.0-34.0 [facility] Comment on above: Performed By: #### 2 962462 #### [facility] [address] [place] [address] MCHC (RBC) [Mass/Vol] 34.0 g/dL Normal 31.4-36.0 [facility] Comment on above: Performed By: #### 2 622794 #### [facility] [address] [place] [address] MCV (RBC) [Entitic vol] 82.4 fL Normal 80.0-100.0 [facility] Comment on above: Performed By: #### 2 820076 #### [facility] [address] [place] [address] Monocytes (Bld) [#/Vol] 0.5 E9/L Normal 0.2-1.0 [facility] Comment on above: Performed By: #### 2 986474 #### [facility] [address] [place] [address] Neutrophils (Bld) [#/Vol] 2.8 E9/L Normal 2.0-7.5 [facility] Comment on above: Performed By: #### 2 373957 #### [facility] [address] [place] [address] Neutrophils/100 WBC (Bld) 48.2 % Normal 36.0-75.0 [facility] Comment on above: Performed By: #### 2 855839 #### [facility] [address] [place] [address] Platelet mean volume (Bld) [Entitic vol] 7.5 fL Normal 6.4-10.8 [facility] Comment on above: Performed By: #### 2 781609 #### [facility] [address] [place] [address] Platelets (Bld) [#/Vol] 430.0 E9/L Normal 150. 0-500. 0 [facility] Comment on above: Performed By: #### 2 347271 #### [facility] [address] [place] [address] RBC (Bld) [#/Vol] 4.5 E12/L Normal 4.3-5.9 [facility] Comment on above: Performed By: #### 2 338047 #### [facility] [address] [place] [address] WBC corrected for nucl RBC Auto (Bld) [#/Vol] 5.8 E9/L Normal 4.0-11.0 [facility] Comment on above: Performed By: #### 2 853766 #### [facility] [address] [place] [address] CHEMISTRYOrdered By: SYSTEM SYSTEM on 06-27-2024 Anion [...] 32.9 s Normal 25.1 - 36.5 second(s) [facility] Auto Coag Comment on above: Interpretive Data: [...] [Relative time] 0.99 {INR} Invalid Interpretation Code [facility] Auto Coag Comment on above: Interpretive Data: I NR results are specifically intended to assess patients stabilized on long-term Anticoagulation therapy suggested INR s Less Intensive Anticoagulation 2.0 3.0 Conventional Range 3.0 4.5 PT Coag (PPP) [Time] 11.1 s Normal 9.4 - 1 2.5 second(s) [facility] Auto Coag Comment on above: Interpretive Data: [...] M.D. Transcribed by: GARTH Technologist: CARLOS Iqbal [facility] ED Clinical Summaryon 2023 ED Clinical Summary ED Clinical Summary [place] [id number] ED Clinical Summary Person Information Name: ROSE MARY SCHNEIDER/[facility] Age: 18 Years : 2005 Sex: Female Language: Kazakh PCP: Fredi Ellington MD Marital Status: Single [...] 06/27/2024 00:49:28 06/27/2024 00:49:28 ADDRESS: [address] [facility] [id number] PHYS DOC NOTES: MEDICAL INFORMATION: Prescriptions Given: [...] Follow up: With: Address: When: Melecio Rubio [facility], [address] [place] [address] Business (1) In 3 days 06/30/2024 With: Address: When: Fredi Ellington [address] [facility] [place] [phone] Business (1) In 3 days DIAGNOSIS: Hypokalemia; Nonepileptic episode Normal [facility] ED Note-Physicianon 06-27-20 ED Note-Physician ED Note-Physician [...] and Complexity of Problems Differential Diagnosis: [] [facility] Data External documents reviewed: N/A My [...] Information Melecio Rubio In 3 days 06/30/[address] [address]- Business (1) Additional Instructions: Fredi Ellington In 3 days [address] [facility] [place] [address]- Business (1) Additional Instructions: Patient Education Hypokalemia [...] Tab-Dis, 4 mg= 1 tab(s), Oral, q8hr, MD (more content not included)... Normal [facility] Comment on above: Result Comment: Elec tronically Signed By: Han Bolaños DO\.br\Date and Time Signed: 06/27/24 00:42 EST ED Patient Summaryon 024 ED Patient Summary ED Patient Summary [place] [id number] Patient Discharge Instructions Person Information Name: ROSE MARY SCHNEIDER Age: 18 Years Arrival Date: 06/26/2024 23:10:41 Discharge Diagnosis: Hypokalemia; Nonepileptic episode Primary Care Physician: Fredi Ellington MD Provider Information Primary Provider: Han Bolaños DO Advanced Shuttle Preparation Supervisor:None The exam and treatment you received in the Emergency Department were for an urgent problem and are not intended as complete care. It is important that you follow up with a doctor, nurse practitioner, or physician???s sales assistant displays for ongoing care. If your symptoms become [...] Follow-up Instructions: With: Address: When: Melecio Rubio [facility], [address] [place] [address] Business (1) In 3 days 06/30/2024 With: Address: When: Fredi Ellington [address] [facility], [facility] [address] Business (1) In 3 days In the event that this physician does not participate in your insurance network, please consult with your insurance company to find a nearby participating provider. Patient Education Materials: Hypokalemia; Non-Epileptic Seizures, Adult A MESSAGE TO ALL PATIENTS REGARDING OPIOIDS PRESCRIPTION OPIOIDS: WHAT YOU NEED TO KNOW Prescription opioids can be used to help relieve ompyybif-fa-fzhxac pain and are often prescribed following a [...] Visit www.cdc.gov/drug (more content not included)... Normal [facility] HEMATOLOGYOrdered By: SYSTEM SYSTEM on 06-27-2024 Basophils/100 [...] Coag (PPP) [Time] 32.9 second(s) Normal 25.1-36.5 [facility] Comment on above: Result Comment: Para meter [...] - 109.0 sec. Performed By: #### 1 [id number] #### [facility] [address] [place] [address] INR Coag (PPP) [Relative time] 0.99 {INR} Invalid Interpretation Code [facility] Comment on above: Result Comment: INR results are specifically intended to assess patients stabilized on long-term Anticoagulation therapy suggested INR???s ???Less Intensive Anticoagulation??? 2.0 ??? 3.0 Conventional Range 3.0 ??? 4.5 Performed By: #### 1 [id number] #### [facility] [address] [place] [address] PT Coag (PPP) [Time] 11.1 second(s) Normal 9.4-12.5 [facility] Comment on above: Result Comment: [...] no normal ranges. Performed By: #### 1 [id number] #### [facility] [address] [place] [address] Troponin 0 Hr.on 06-27-2024 Troponin HS <2.30 Low 10.10-27.1 0 [facility] Comment on above: Result Comment: The 95% CI (Confidence Interval) PPV (Positive Predictive Value) for myocardial infarction in females is 38 pg/mL, in males 51 pg/mL. The results should be used in conjunction with clinical conditions of myocardial infarction. (Access High Sensitivity Troponin I Instructions For Use, Stephy [place], March 2018) Performed By: #### 1 [id number] #### [facility] [address] [place] [address] U Drug Screenon 06-27-2024 Amphetamines Screen method >1000 ng/mL Ql (U) Negative Normal NEGATIVE [facility] Comment on above: Result Comment: Nega tive Cutoff: <1000 ng/mL Performed By: #### 2 [id number] #### [facility] [address] [place] [address] Barbiturates Screen Ql (U) Negative Normal NEGATIVE [facility] Comment on above: Result Comment: Nega tive Cutoff: <200 ng/mL Performed By: #### 2 [id number] #### [facility] [address] [place] [address] Benzodiazepines Ql (U) Negative Normal NEGATIVE [facility] Comment on above: Result Comment: Nega tive Cutoff: <200 ng/mL Performed By: #### 2 [id number] #### [facility] [address] [place] [address] Cannabinoids Screen Ql (U) Positive Abnormal NEGATIVE [facility] Comment on above: Result Comment: No C onfirmation Requested by Physician Result verified by repeat analysis, Unconfirmed by alternate method Critical Result called to Natali Pool by [email or web address] on 06/27/24 at 0012 Negative Cutoff: <50 ng/mL Performed By: #### 2 [id number] #### [facility] [address] [place] [address] Cocaine Ql (U) Negative Normal NEGATIVE [facility] Comment on above: Result Comment: Nega tive Cutoff: <300 ng/mL Performed By: #### 2 [id number] #### [facility] [address] [place] [address] Opiates Screen Ql (U) Negative Normal NEGATIVE [facility] Comment on above: Result Comment: Nega tive Cutoff: <300 ng/mL Performed By: #### 2 [id number] #### [facility] [address] [place] [address] Phencyclidine Screen method >25 ng/mL Ql (U) Negative Normal NEGATIVE [facility] Comment on above: Result Comment: Nega tive Cutoff: <25 ng/mL These drug screen results are to be used for medical (i.e., treatment) purposes only. Unconfirmed drug screening results must not be used for non-medical purposes (e.g., employment testing, legal testing). Performed By: #### 2 629109 #### [facility] [address] [place] [address] U Fentanyl Negative Normal NEGATIVE [facility] Comment on above: Result Comment: Nega tive Cutoff: <5 ng/mL These drug screen results are to be used for medical (i.e., treatment) purposes only. Unconfirmed drug screening results must not be used for non-medical purposes (e.g., employment testing, legal testing). Performed By: #### 2 [id number] #### [facility] [address] [place] [address] XR Chest Single Viewon 06-27 XR Chest [...] mGy = na DAP = na Normal [facility] eGFRon 06-27-2024 eGFR 108 mL/min/1.73 m2 Normal >=59 [facility] Comment on above: Performed By: #### 1 [id number] #### [facility] [address] [place] [address] CHEMISTRYOrdered By: SYSTEM SYSTEM on 06-26-2024 Amphetamines [...] Critical Result called to Natali Pool by [facility] on 06/27/24 at 0012 Interpretive Data: [...] 06-26-2024 HCG.beta subunit (U) [Moles/Vol] Negative Normal [facility] Man Sero U BetaHcg Qualon 06-26-2024 HCG.beta subunit (U) [Moles/Vol] Negative Normal [facility] Comment on above: Performed By: #### 2 [id number] #### [facility] [address] [place] [address] UA with Cult Rflxon 06-26-20 Bilirubin Ql (U) Negative Normal Negative [facility] Comment on above: Performed By: #### 4 [id number] #### [facility] [address] [place] [address] Clarity (U) Clear Normal Clear [facility] Comment on above: Performed By: #### 4 [id number] #### [facility] [address] [place] [address] Color (U) Yellow Normal Yellow [facility] Comment on above: Result Comment: Micr oscopic readings are only performed on those samples that meet specific criteria set forth by [facility]. Performed By: #### 4 [id number] #### [facility] [address] [place] [address] Crystals.amorphous Computer assisted Ql (U) Present Abnormal [facility] Comment on above: Performed By: #### 4 [id number] #### [facility] [address] [place] [address] Epithelial cells.squamous Auto (Urine sed) [#/Area] 5-8 Invalid Interpretation Code [facility] Comment on above: Performed By: #### 4 [id number] #### [facility] [address] [place] [address] Glucose Ql (U) Negative Normal Negative [facility] Comment on above: Performed By: #### 4 [id number] #### [facility] [address] [place] [address] Hemoglobin Auto test strip (U) [Mass/Vol] Trace Abnormal Negative [facility] Comment on above: Performed By: #### 4 [id number] #### [facility] [address] [place] [address] Ketones Auto test strip Ql (U) Negative Normal Negative [facility] Comment on above: Performed By: #### 4 [id number] #### [facility] [address] [place] [address] Leukocyte esterase Auto test strip Ql (U) Negative Normal Negative [facility] Comment on above: Performed By: #### 4 [id number] #### [facility] [address] [place] [address] Mucus Auto Ql (U) 2+ CD:[id number] Abnormal Negative [facility] Comment on above: Performed By: #### 4 [id number] #### [facility] [address] [place] [address] Nitrite Auto test strip Ql (U) Negative Normal Negative [facility] Comment on above: Performed By: #### 4 [id number] #### [facility] [address] [place] [address] pH (U) 6.0 [pH] Invalid Interpretation Code 5.0-9.0 [facility] Comment on above: Performed By: #### 4 [id number] #### [facility] [address] [place] [address] Protein Ql (U) 1+ mg/dL Abnormal Negative [facility] Comment on above: Performed By: #### 4 [id number] #### [facility] [address] [place] [address] RBC Ql (U) 0-3 Normal 0-3 [facility] Comment on above: Performed By: #### 4 [id number] #### [facility] [address] [place] [address] Specific gravity (U) [Rel density] 1.031 Invalid Interpretation Code 1.005-1.03 0 [facility] Comment on above: Performed By: #### 4 [id number] #### [facility] [address] [place] [address] Urobilinogen (U) [Mass/Vol] 2 mg/dL Abnormal Negative [facility] Comment on above: Performed By: #### 4 [id number] #### [facility] [address] [place] [address] WBC Auto (Urine sed) [#/Area] 0-5 Normal 0-5 [facility] Comment on above: Performed By: #### 4 [id number] #### [facility] [address] [place] [address] Type of Urine collection method Clean Catch Normal [facility] Comment on above: Performed By: #### 4 [id number] #### [facility] [address] [place] [address] URINALYSISOrdered By: SYSTEM SYSTEM on 06-26-2024 Bilirubin Ql (U) Negative Normal Negativemg /dL [facility] UA Auto SS Clarity (U) Clear (06/26/24 11:34 PM) Normal Clear [facility] UA Auto SS Color (U) Yellow 3 (06/26/24 11:34 PM) Normal Yellow [facility]A Auto SS Comment on above: Interpretive Data: M icroscopic readings are only performed on those samples that meet specific criteria set forth by [facility]. Crystals.amorphous Computer assisted Ql (U) Present graded/HPF Invalid Interpretation Code [facility] UA Auto SS Epithelial cells.squamous Auto (Urine [...] 2 mg/dL Invalid Interpretation Code Negativemg /dL [facility] UA Auto SS WBC Auto (Urine sed) [#/Area] 0-5 graded/HPF Normal 0-5graded/ HPF [facility] UA Auto SS URINALYSISOrdered By: Han hutchinson on 06-26-2024 UA Spec Desc Clean Catch (06/26/24 11:34 PM) Normal [facility] UA Auto SS Work Phone: Grp A Strp PCRon 05-23-2024 Group A Strep Negative Normal Negative [facility] Comment on above: Order Comment: Order Added on by Discern Rule. Result Comment: Test ing performed using DNA amplification. Performed By: #### 1 [id number] #### [facility] [address] [place] [address] Grp A Strp Intrl Ctrl Pass Normal Fis [facility] Comment on above: Order Comment: Order Added on by Discern Rule. Performed By: #### 1 [id number] #### [facility] [address] [place] [address] ED Clinical Summaryon 2023 ED Clinical Summary ED Clinical Summary [address] [address] ED Clinical Summary Person Information Name: ROSE MARY SCHNEIDER [place] Age: 18 Years : 2005 Sex: Female Language: Kazakh PCP: Fredi Ellington MD Marital Status: Single [...] 22:41:58 05/22/2024 22:41:58 ADDRESS: [address] [place] [id number] PHYS DOC NOTES: MEDICAL INFORMATION: Prescriptions Given: New Medications [facility]/pharmacy #[id number], [address], [place] [id number], [phone] brompheniramine/dextromet horphan/PSE (Bromfed DM oral syrup) 5 Milliliter By Mouth 4 times a day as needed for cold symptoms. Refills: 0. Medications to Continue Taking That Have Changed [facility]/pharmacy #[id number], [address], [place] [phone], [phone] START: ondansetron (Zofran ODT 4 mg Tab-Dis) [...] EDUCATION INFORMATION: Instructions: Upper Respiratory Infection, Adult, Ymzi-lo-Kahk Follow up: With: Address: When: Fredi Ellington [address] [place] [address], [facility] [address] Business (1) In 3 days 05/25/2024 Comments: Call Dr for diagnosis based follow up DIAGNOSIS: Viral URI Normal [facility] ED Note-Physicianon 05-22-20 ED Note-Physician ED Note-Physician [...] and Complexity of Problems Differential Diagnosis: [] [facility] Data External documents reviewed: [] My [...] EDT, STAT, Start date 05/22/24 22:28:00 EDT, [facility]- max dose 12 mg, 05/22/24 22:28:00 EDT ondansetron, 4 mg = 1 tab(s), Oral, q8hr, PRN Nausea/Vomiting, # 12 tab(s), Refills(s) 0, Pharmacy: [facility]/pharmacy #[id number], 170.2, cm, 05/22/24 21:55:00 EDT, Height/Length Dosing, 115.8, kg, 05/22/24 21:55:00 EDT, Weight Dosing Disposition Plan Patient Discharge Condition Stable Discharge Disposition To home Discharge Prescription List Prescriptions Bromfed DM oral syrup, 5 mL, Oral, QID, PRN Zofran ODT 4 mg Tab-Dis, 4 mg= 1 tab(s), Oral, q8hr, PRN Follow-up With When Contact Information Fredi Ellington In 3 days 05/25/[address] [place] [address] (more content not included)... Normal [facility] Comment on above: Result Comment: Elec tronically Signed By: Alexandru Barajas PA-C\.br\Date and Time Signed: 05/22/24 22:31 EDT\.br\Electronically Co-Signed By: Han Bolaños DO\.br\Date and Time Co-Signed: 05/22/24 23:23 EDT ED Patient Summaryon 024 ED Patient Summary ED Patient Summary [place] [id number] Patient Discharge Instructions Person Information Name: ROSE MARY SCHNEIDER Age: 18 Years Arrival Date: 05/22/2024 21:47:57 Discharge Diagnosis: Viral URI Primary Care Physician: Fredi Ellington MD Provider Information Primary Provider: Han Bolaños DO Advanced Shuttle Preparation Supervisor:None The exam and treatment you received in the Emergency Department were for an urgent problem and are not intended as complete care. It is important that you follow up with a doctor, nurse practitioner, or physician?s sales assistant displays for ongoing care. If your symptoms become [...] Follow-up Instructions: With: Address: When: Fredi Ellington [address] [place] [address], [address] [place] [phone] Business (1) In 3 days 05/25/2024 Comments: Call Dr for diagnosis based follow up In the event that this physician does not participate in your insurance network, please consult with your insurance company to find a nearby participating provider. Patient Education Materials: Upper Respiratory Infection, Adult, Kooh-wm-Hngw A MESSAGE TO ALL PATIENTS REGARDING OPIOIDS PRESCRIPTION OPIOIDS: WHAT YOU NEED TO KNOW Prescription opioids can be used to help relieve zorvpcqy-lc-qlxbvi pain and are often prescribed following a [...] struggling with addiction, tell your health care information associate and ask fo (more content not included)... Normal [facility] Influenza A&B Agon 4 Influenzae A Ag Negative Normal Negative [facility] Comment on above: Performed By: #### 1 [id number] #### [facility] [address] [place] [address] Influenzae B Ag Negative Normal Negative [facility] Comment on above: Result Comment: Test sensitivity and specificity vary for age group, specimen type, antigen types, and prevalence of disease. Test results must be evaluated in conjunction with other clinical data available to the physician. Individuals who received nasally administered Influenza A vaccine may have positive test results up to 3 days after vaccination. Performed By: #### 1 [id number] #### [facility] [address] [place] [address] MICRO OTHER TESTSOrdered By: Ruth Miller on 05-22-2024 Influenzae A Ag Negative (05/22/24 10:00 PM) Normal Negative [facility] Man Sero Influenzae B Ag Negative 1 (05/22/24 10:00 PM) Normal Negative [facility] Comment on above: Interpretive Data: [...] NEG Ctl Pass (05/22/24 10:00 PM) Normal [facility] Man Sero Rapid COV Int POS Ctl Pass (05/22/24 10:00 PM) Normal [facility] Sero SARS-CoV+SARS-CoV-2 (COVID-19) Ag IA.rapid Ql (Resp) Not Detected 2 (05/22/24 10:00 PM) Normal Not Detected [facility]ero Comment on above: Interpretive Data: T he Cam[employer] Veritor System for Rapid Detection of SARS-CoV-2 [...] other viruses or pathogens; and, in the [facility], this test is only authorized for the [...] COV Int NEG Ctl Pass Normal Fis [facility] Comment on above: Performed By: #### 2 [id number] #### [facility] [address] [place] [address] Rapid COV Int POS Ctl Pass Normal [facility] Comment on above: Performed By: #### 2 [id number] #### [facility] [address] [place] [address] SARS-CoV+SARS-CoV-2 (COVID-19) Ag IA.rapid Ql (Resp) Not detected Normal Not Detected [facility] Comment on above: Result Comment: The [employer]? System for Rapid Detection of SARS-CoV-2 is [...] or revoked sooner. Performed By: #### 2 [id number] #### [facility] [address] [place] [address] Rapid Strep w/rfxon 05-22-20 24 S. 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 Thyroid, 04/25/24, Routine, Order for future visit, Transport Mode: Ambulatory, Reason: Lymph Node, No, Obesity due to excess calories Right upper quadrant pain BMI 40.0-44.9, adult Esophageal dysphagia, pp_set_radiology_subspeci hector [facility] Medications What How Much When Why Instructions [...] for choosing us for your care. Normal [facility] CHEMISTRYOrdered By: SYSTEM SYSTEM on 04-25-2024 T4 [...] presents today for a follow up from [facility] on 03/13/2024, for complaints of abdominal pain. right sided abd pain, sometimes radiates to the back. Patient also was seen at [facility] ER 03/14/2024 after taking 50 tabs of 200 mg ibuprofen. [facility] ED Note: 03/14/2024 Chief Complaint Took bottle of ibuprofen at 1915. 50 tabs of 200 mg tabs. States suicidal. States some ABD pain. History of Present Illness HPI: Patient is a 18-year-old female with past medical history of seizures and pancreatitis who presents the ED for suicide attempt. Patient states that at 1950 tonight she took 50 hksg-dtr-tyjkmfb ibuprofen of the 200 mg strength. She states that she did not attempt to kill herself. She has had suicide attempts in the past. She denies any Co. ingestion. She has some mild upper abdominal discomfort but denies any other symptoms at this time. [facility] ER: 03/13/2024 Chief complaint: Nausea/Vomiting/Diarrhea HPI narrative: 18-year-old female presents for abdominal pain and nausea and vomiting. She states the abdominal pain started a month ago and she had a CAT scan and an ultrasound at another facility about a week ago. She threw up 6 times today. [facility]: 03/13/2024 Amylase 11 25-115 Low Lipase [...] 83.5 fL (03/14/24) Chloride: 104 mmol/L (03/14/24) Peach Absolute: 0.6 E9/L ( (more content not included)... Normal [facility] Comment on above: Result Comment: Elec tronically Signed By: David MARCANO, Zenon Ratliff\.br\Date and Time Signed: 04/25/24 13:45 EDT T4 & TSHon 04-25-2024 TSH Qn 2.55 m[IU]/L Normal 0.34-5.60 [facility] Comment on above: Performed By: #### 1 [id number] #### [facility] [address] [place] [address] T4 [Mass/Vol] 8.5 microgram/dL Normal 4.6-9.1 [facility] Comment on above: Performed By: #### 1 [id number] #### [facility] [address] [place] [address] CT Head or Brain w/o Contras ton [...] Farrell FINAL REPORT Dictated: 04/15/2024 9:40 am Thierry Mcknight MD Signed (Electronic Signature): 04/15/2024 9:40 am Signed by: Thierry Mcknight MD Transcribed by: GARTH Technologist: CARLOS Iqbal [facility] ED Note-Physicianon 04-15-20 ED Note-Physician ED Note-Physician [...] and Complexity of Problems Differential Diagnosis: [] [facility] Data External documents reviewed: [] My [...] Therapy PT & PTT Rapid COVID Antigen ([facility]) Saline Lock Insert Troponin 0 Hr. Troponin 1 Hr. U Beta Hcg Qual UA with Cult Rflx XR Chest 2 Views Disposition Plan Patient Discharge Condition Stable Discharge Disposition Discharge home Discharge Prescription List Prescriptions No active prescription medications Follow-up With When Contact Information Fredi Ellington In 3 days 04/17/2024 EDT [address] [place] [address]- Business (1) Additional Instructions: Return to the [...] 3 mg-10 mg oral tablet, extended release Cornell 325 mg-5 mg ora (more content not included)... Normal [facility] Comment on above: Result Comment: [...] mGy = NA DAP = NA Normal [facility] BMPon 04-14-2024 Anion gap [Moles/Vol] 12 mmol/L Normal 6-16 [facility] Comment on above: Performed By: #### 2 [id number] #### [facility] [address] [place] [address] Calcium [Mass/Vol] 9.0 mg/dL Normal 8.9-11.1 [facility] Comment on above: Performed By: #### 2 [id number] #### [facility] [address] [place] [address] Chloride [Moles/Vol] 103 mmol/L Normal 101-111 [facility] Comment on above: Performed By: #### 2 [id number] #### [facility] [address] [place] [address] CO2 [Moles/Vol] 27 mmol/L Normal 21-31 [facility] Comment on above: Performed By: #### 2 [id number] #### [facility] [address] [place] [address] Creatinine [Mass/Vol] 0.9 mg/dL Normal 0.5-1.3 [facility] Comment on above: Performed By: #### 2 [id number] #### [facility] [address] [place] [address] Glucose [Mass/Vol] 90 mg/dL Normal 55-199 [facility] Comment on above: Performed By: #### 2 [id number] #### [facility] [address] [place] [address] Potassium [Moles/Vol] 3.7 mmol/L Normal 3.5-5.3 [facility] Comment on above: Performed By: #### 2 [id number] #### [facility] [address] [place] [address] Sodium [Moles/Vol] 138 mmol/L Normal 135-145 [facility] Comment on above: Performed By: #### 2 [id number] #### [facility] [address] [place] [address] Urea nitrogen [Mass/Vol] 13 mg/dL Normal 5-21 [facility] Comment on above: Performed By: #### 2 [id number] #### [facility] [address] [place] [address] Urea nitrogen/Creatinine [Mass ratio] 14 No Units Normal 10-20 [facility] Comment on above: Performed By: #### 2 [id number] #### [facility] [address] [place] [address] CBC w/ Auto Diffon 4 Basophils/100 WBC (Bld) 0.5 % Normal 0.0-2.0 [facility] Comment on above: Performed By: #### 2 [id number] #### [facility] [address] [place] [address] Basophils/Leukocytes Auto (Bld) [Pure # fraction] 0.1 E9/L Normal 0.0-0.2 [facility] Comment on above: Performed By: #### 2 [id number] #### [facility] [address] [place] [address] Eosinophils (Bld) [#/Vol] 0.6 E9/L High 0.0-0.5 [facility] Comment on above: Performed By: #### 2 [id number] #### [facility] [address] [place] [address] Eosinophils/100 WBC (Bld) 6.0 % Normal 0.0-8.0 [facility] Comment on above: Performed By: #### 2 [id number] #### [facility] [address] [place] [address] Erythrocyte distribution width (RBC) [Ratio] 13.7 % Normal 10.9-14.2 [facility] Comment on above: Performed By: #### 2 [id number] #### [facility] [address] [place] [address] Hematocrit (Bld) [Volume fraction] 36.0 % Normal 34.0-46.0 [facility] Comment on above: Performed By: #### 2 [id number] #### [facility] [address] [place] [address] Hemoglobin (Bld) [Mass/Vol] 12.1 g/dL Normal 12.0-16.0 [facility] Comment on above: Performed By: #### 2 [id number] #### [facility] [address] [place] [address] Lymphocytes (Bld) [#/Vol] 2.6 E9/L Normal 1.0-4.0 [facility] Comment on above: Performed By: #### 2 [id number] #### [facility] [address] [place] [address] Lymphocytes/100 WBC (Bld) 25.5 % Normal 14.0-50.0 [facility] Comment on above: Performed By: #### 2 [id number] #### [facility] [address] [place] [address] MCH (RBC) [Entitic mass] 28.1 pg Normal 27.0-34.0 [facility] Comment on above: Performed By: #### 2 [id number] #### [facility] [address] [place] [address] MCHC (RBC) [Mass/Vol] 33.7 g/dL Normal 31.4-36.0 [facility] Comment on above: Performed By: #### 2 [id number] #### [facility] [address] [place] [address] MCV (RBC) [Entitic vol] 83.2 fL Normal 80.0-100.0 [facility] Comment on above: Performed By: #### 2 [id number] #### [facility] [address] [place] [address] Monocytes (Bld) [#/Vol] 0.6 E9/L Normal 0.2-1.0 [facility] Comment on above: Performed By: #### 2 [id number] #### [facility] [address] [place] [address] Neutrophils (Bld) [#/Vol] 6.4 E9/L Normal 2.0-7.5 [facility] Comment on above: Performed By: #### 2 [id number] #### [facility] [address] [place] [address] Neutrophils/100 WBC (Bld) 62.5 % Normal 36.0-75.0 [facility] Comment on above: Performed By: #### 2 [id number] #### [facility] [address] [place] [address] Platelet mean volume (Bld) [Entitic vol] 7.3 fL Normal 6.4-10.8 [facility] Comment on above: Performed By: #### 2 [id number] #### [facility] [address] [place] [address] Platelets (Bld) [#/Vol] 449.0 E9/L Normal 150. 0-500. 0 [facility] Comment on above: Performed By: #### 2 [id number] #### [facility] [address] [place] [address] RBC (Bld) [#/Vol] 4.3 E12/L Normal 4.3-5.9 [facility] Comment on above: Performed By: #### 2 [id number] #### [facility] [address] [place] [address] WBC corrected for nucl RBC Auto (Bld) [#/Vol] 10.3 E9/L Normal 4.0-11.0 [facility] Comment on above: Performed By: #### 2 [id number] #### [facility] [address] [place] [address] CHEMISTRYOrdered By: SYSTEM SYSTEM on 04-14-2024 Troponin [...] Sensitivity Troponin I Instructions For Use, Stephy [employer], March 2018) Urea nitrogen [Mass/Vol] 13 mg/dL [...] 37.7 s High 25.1 - 36.5 second(s) [facility] Auto Coag Comment on above: Interpretive Data: [...] [Relative time] 0.97 {INR} Invalid Interpretation Code [facility] Auto Coag Comment on above: Interpretive Data: I NR results are specifically intended to assess patients stabilized on long-term Anticoagulation therapy suggested INR s Less Intensive Anticoagulation 2.0 3.0 Conventional Range 3.0 4.5 PT Coag (PPP) [Time] 10.9 s Normal 9.4 - 1 2.5 second(s) [facility] Auto Coag Comment on above: Interpretive Data: [...] 2023 ED Clinical Summary ED Clinical Summary [place] [address] ED Clinical Summary Person Information Name: ROSE MARY SCHNEIDER [facility] Age: 18 Years : 2005 Sex: Female Language: Kazakh PCP: Fredi Ellington MD Marital Status: Single [...] 04/14/2024 22:31:18 04/14/2024 22:31:18 04/14/2024 22:31:18 ADDRESS: [address] [place] [address] [address] [place] [id number] [facility] DOC NOTES: MEDICAL INFORMATION: Prescriptions Given: Medications to Continue with No Changes Other Medications acetaminophen-hydrocodone (Cornell 325 mg-5 mg oral tablet) 1 Tablets [...] Follow up: With: Address: When: Fredi Ellington [address] [place], [place] [id number] [email or web address] () In 3 days 04/17/2024 Comments: Return to the emergency room if the syncopal episode recurs or any new symptoms DIAGNOSIS: 1:Syncope Normal [facility] ED Patient Summaryon 024 ED Patient Summary ED Patient Summary [place] [address] Patient Discharge Instructions Person Information Name: ROSE MARY SCHNEIDER Age: 18 Years Arrival Date: 04/14/2024 20:00:50 Discharge Diagnosis: 1:Syncope Primary Care Physician: Fredi Ellington MD Provider Information Primary Provider: Migue Farrell M.D. Advanced Shuttle Preparation Supervisor:None The exam and treatment you received in the Emergency Department were for an urgent problem and are not intended as complete care. It is important that you follow up with a doctor, nurse practitioner, or physician?s sales assistant displays for ongoing care. If your symptoms become [...] Follow-up Instructions: With: Address: When: Fredi Ellington [address] [place] [id number] Business (1) In 3 days 04/17/2024 [...] opioids can be used to help relieve liykcigv-rc-adqqnt pain and are often prescribed following a [...] struggling with addiction, tell your health care information associate an (more content not included)... Normal [facility] HEMATOLOGYOrdered By: SYSTEM SYSTEM on 04-14-2024 Basophils/100 [...] 04-14-2024 Albumin [Mass/Vol] 3.8 g/dL Normal 3.3-5.0 [facility] Comment on above: Performed By: #### 2 [id number] #### [facility] [address] [place] [address] Albumin/Globulin (S) [Mass conc ratio] 1.1 Normal 1.1-2.2 [facility] Comment on above: Performed By: #### 2 [id number] #### [facility] [address] [place] [address] ALP [Catalytic activity/Vol] 59 Int._Unit/L Normal 21-98 [facility] Comment on above: Performed By: #### 2 [id number] #### [facility] [address] [place] [address] ALT No additional P-5'-P [Catalytic activity/Vol] 18 Int._Unit/L Normal 6-46 [facility] Comment on above: Performed By: #### 2 [id number] #### [facility] [address] [place] [address] AST [Catalytic activity/Vol] 17 Int._Unit/L Normal 5-43 [facility] Comment on above: Performed By: #### 2 [id number] #### [facility] [address] [place] [address] Bilirubin [Mass/Vol] 0.3 mg/dL Normal 0.0-1.1 [facility] Comment on above: Performed By: #### 2 [id number] #### [facility] [address] [place] [address] Bilirubin.direct [Mass/Vol] 0.0 mg/dL Normal 0.0-0.4 [facility] Comment on above: Performed By: #### 2 [id number] #### [facility] [address] [place] [address] Bilirubin.indirect [Mass or moles/Vol] 0.3 mg/dL Normal 0.1-0.9 [facility] Comment on above: Performed By: #### 2 [id number] #### [facility] [address] [place] [address] Globulin (S) [Mass/Vol] 3.6 g/dL Normal 1.4-4.0 [facility] Comment on above: Performed By: #### 2 [id number] #### [facility] [address] [place] [address] Protein [Mass/Vol] 7.4 g/dL Normal 6.0-7.8 [facility] Comment on above: Performed By: #### 2 [id number] #### [facility] [address] [place] [address] MICRO OTHER TESTSOrdered By: Ruth Miller on 04-14-2024 Rapid COV Int NEG Ctl Pass (04/14/24 8:59 PM) Normal [facility] Man Sero Rapid COV Int POS Ctl Pass (04/14/24 8:59 PM) Normal [facility] Man Sero SARS-CoV+SARS-CoV-2 (COVID-19) Ag IA.rapid Ql (Resp) Not Detected 14 (04/14/24 8:59 PM) Normal Not Detected [facility] Comment on above: Interpretive Data: Louis rivera [employer] System for Rapid Detection of SARS-CoV-2 [...] 04-14-2024 Magnesium [Mass/Vol] 1.7 mg/dL Normal 1.3-2.4 [facility] Comment on above: Performed By: #### 2 [id number] #### [facility] [address] [place] [address] PT & PTTon 04-14-2024 aPTT Coag (PPP) [Time] 37.7 second(s) High 25.1-36.5 [facility] Comment on above: Result Comment: Para meter [...] - 109.0 sec. Performed By: #### 1 [id number] #### [facility] [address] [place] [address] INR Coag (PPP) [Relative time] 0.97 {INR} Invalid Interpretation Code [facility] Comment on above: Result Comment: INR results are specifically intended to assess patients stabilized on long-term Anticoagulation therapy suggested INR?s ?Less Intensive Anticoagulation? 2.0 ? 3.0 Conventional Range 3.0 ? 4.5 Performed By: #### 1 [id number] #### [facility] [address] [place] [address] PT Coag (PPP) [Time] 10.9 second(s) Normal 9.4-12.5 [facility] Comment on above: Result Comment: [...] no normal ranges. Performed By: #### 1 [id number] #### [facility] [address] [place] [address] Rapid COVID Antigen ([facility])on 04-14-2024 Rapid COV Int NEG Ctl Pass Normal [facility] Comment on above: Performed By: #### 2 [id number] #### [facility] [address] [place] [address] Rapid COV Int POS Ctl Pass Normal [facility] Comment on above: Performed By: #### 2 [id number] #### [facility] [address] [place] [address] SARS-CoV+SARS-CoV-2 (COVID-19) Ag IA.rapid Ql (Resp) Not detected Normal Not Detected [facility] Comment on above: Result Comment: The [employer]? System for Rapid Detection of SARS-CoV-2 [...] or revoked sooner. Performed By: #### 2 [id number] #### [facility] [address] [place] [address] SEROLOGYOrdered By: Ruth orellana on 04-14-2024 HCG.beta subunit (U) [Moles/Vol] Negative Normal [facility] Man Sero Troponin 0 Hr.on 04-14-2024 Troponin HS 2.60 pg/mL Low 10.10-27.1 0 [facility] Comment on above: Result Comment: The 95% CI (Confidence Interval) PPV (Positive Predictive Value) for myocardial infarction in females is 38 pg/mL, in males 51 pg/mL. The results should be used in conjunction with clinical conditions of myocardial infarction. (Access High Sensitivity Troponin I Instructions For Use, Stephy [place], March 2018) Performed By: #### 1 [id number] #### [facility] [address] [place] [address] Troponin 1 Hr.on 04-14-2024 Troponin HS <2.30 Low 10.10-27.1 0 [facility] Comment on above: Order Comment: 2129 Result Comment: The 95% CI (Confidence Interval) PPV (Positive Predictive Value) for myocardial infarction in females is 38 pg/mL, in males 51 pg/mL. The results should be used in conjunction with clinical conditions of myocardial infarction. (Access High Sensitivity Troponin I Instructions For Use, Stephy [place], March 2018) Performed By: #### 1 [id number] #### [facility] [address] [place] [address] U BetaHcg Qualon 04-14-2024 HCG.beta subunit (U) [Moles/Vol] Negative Normal [facility] Comment on above: Performed By: #### 2 [id number] #### [facility] [address] [place] [address] U Drug Screenon 04-14-2024 Amphetamines Screen method >1000 ng/mL Ql (U) Negative Normal NEGATIVE [facility] Comment on above: Result Comment: Nega tive Cutoff: <1000 ng/mL Performed By: #### 2 [id number] #### [facility] [address] [place] [address] Barbiturates Screen Ql (U) Negative Normal NEGATIVE [facility] Comment on above: Result Comment: Nega tive Cutoff: <200 ng/mL Performed By: #### 2 [id number] #### [facility] [address] [place] [address] Benzodiazepines Ql (U) Negative Normal NEGATIVE [facility] Comment on above: Result Comment: Nega tive Cutoff: <200 ng/mL Performed By: #### 2 [id number] #### [facility] [address] [place] [address] Cannabinoids Screen Ql (U) Negative Normal NEGATIVE [facility] Comment on above: Result Comment: Nega tive Cutoff: <50 ng/mL Performed By: #### 2 [id number] #### [facility] [address] [place] [address] Cocaine Ql (U) Negative Normal NEGATIVE [facility] Comment on above: Result Comment: Nega tive Cutoff: <300 ng/mL Performed By: #### 2 [id number] #### [facility] [address] [place] [address] Opiates Screen Ql (U) Negative Normal NEGATIVE [facility] Comment on above: Result Comment: Nega tive Cutoff: <300 ng/mL Performed By: #### 2 [id number] #### [facility] [address] [place] [address] Phencyclidine Screen method >25 ng/mL Ql (U) Negative Normal NEGATIVE [facility] Comment on above: Result Comment: Nega tive Cutoff: <25 ng/mL These drug screen results are to be used for medical (i.e., treatment) purposes only. Unconfirmed drug screening results must not be used for non-medical purposes (e.g., employment testing, legal testing). Performed By: #### 2 [id number] #### [facility] [address] [place] [address] U Fentanyl Negative Normal NEGATIVE [facility] Comment on above: Result Comment: Nega tive Cutoff: <5 ng/mL These drug screen results are to be used for medical (i.e., treatment) purposes only. Unconfirmed drug screening results must not be used for non-medical purposes (e.g., employment testing, legal testing). Performed By: #### 2 [id number] #### [facility] [address] [place] [address] UA with Cult Rflxon 04-14-20 24 Bilirubin Ql (U) Negative Normal Negative [facility] Comment on above: Performed By: #### 4 [id number] #### [facility] [address] [place] [address] Clarity (U) Clear Normal Clear [facility] Comment on above: Performed By: #### 4 [id number] #### [facility] [address] [place] [address] Color (U) Light-Yellow Normal Yellow [facility] Comment on above: Result Comment: Micr oscopic readings are only performed on those samples that meet specific criteria set forth by [facility]. Performed By: #### 4 [id number] #### [facility] [address] [place] [address] Epithelial cells.squamous Auto (Urine sed) [#/Area] 5-8 Invalid Interpretation Code [facility] Comment on above: Performed By: #### 4 [id number] #### [facility] [address] [place] [address] Glucose Ql (U) Negative Normal Negative [facility] Comment on above: Performed By: #### 4 [id number] #### [facility] [address] [place] [address] Hemoglobin Auto test strip (U) [Mass/Vol] 1+ mg/dL Abnormal Negative [facility] Comment on above: Performed By: #### 4 [id number] #### [facility] [address] [place] [address] Ketones Auto test strip Ql (U) Negative Normal Negative [facility] Comment on above: Performed By: #### 4 [id number] #### [facility] [address] [place] [address] Leukocyte esterase Auto test strip Ql (U) Negative Normal Negative [facility] Comment on above: Performed By: #### 4 [id number] #### [facility] [address] [place] [address] Mucus Auto Ql (U) Trace Normal Negative [facility] Comment on above: Performed By: #### 4 [id number] #### [facility] [address] [place] [address] Nitrite Auto test strip Ql (U) Negative Normal Negative [facility] Comment on above: Performed By: #### 4 [id number] #### [facility] [address] [place] [address] pH (U) 5.5 [pH] Invalid Interpretation Code 5.0-9.0 [facility] Comment on above: Performed By: #### 4 [id number] #### [facility] [address] [place] [address] Protein Ql (U) Trace Abnormal Negative [facility] Comment on above: Performed By: #### 4 [id number] #### [facility] [address] [place] [address] RBC Ql (U) 4-20 Abnormal 0-3 [facility] Comment on above: Performed By: #### 4 [id number] #### [facility] [address] [place] [address] Specific gravity (U) [Rel density] 1.028 Invalid Interpretation Code 1.005-1.03 0 [facility] Comment on above: Performed By: #### 4 [id number] #### [facility] [address] [place] [address] Urobilinogen (U) [Mass/Vol] Negative Normal Negative [facility] Comment on above: Performed By: #### 4 [id number] #### [facility] [address] [place] [address] WBC Auto (Urine sed) [#/Area] 0-5 Normal 0-5 [facility] Comment on above: Performed By: #### 4 [id number] #### [facility] [address] [place] [address] Type of Urine collection method Clean Catch Normal [facility] Comment on above: Performed By: #### 4 [id number] #### [facility] [address] [place] [id number] URINALYSISOrdered By: SYSTEM SYSTEM on 04-14-2024 Bilirubin Ql (U) Negative Normal Negativemg /dL [facility] UA Auto SS Clarity (U) Clear (04/14/24 8:26 PM) Normal Clear [facility] UA Auto SS Color (U) Light-Yellow 3 (04/14/24 8:26 PM) Normal Yellow [facility] UA Auto SS Comment on above: Interpretive Data: M icroscopic readings are only performed on those samples that meet specific criteria set forth by [facility]. Epithelial cells.squamous Auto (Urine sed) [#/Area] 5-8 graded/HPF Invalid Interpretation Code [facility] UA Auto SS Glucose Ql (U) Negative Normal Negativemg /dL [facility] UA Auto SS Hemoglobin Auto test strip [...] Desc Clean Catch (04/14/24 8:26 PM) Normal [facility] UA Auto SS eGFRon 04-14-2024 eGFR 94 mL/min/1.73 m2 Normal >=59 [facility] Comment on above: Order Comment: Order added by Discern Expert. Performed By: #### 1 [id number] #### [facility] [address] [place] [address] B hCG Qualon 04-10-2024 Beta HCG ( test) Ql Negative Normal [facility] Comment on above: Performed By: #### 2 [id number] #### [facility] [address] [place] [address] BMPon 04-10-2024 Anion gap [Moles/Vol] 12 mmol/L Normal 6-16 [facility] Comment on above: Performed By: #### 2 [id number] #### [facility] [address] [place] [address] Calcium [Mass/Vol] 8.9 mg/dL Normal 8.9-11.1 [facility] Comment on above: Performed By: #### 2 [id number] #### [facility] [address] [place] [address] Chloride [Moles/Vol] 101 mmol/L Normal 101-111 [facility] Comment on above: Performed By: #### 2 [id number] #### [facility] [address] [place] [address] CO2 [Moles/Vol] 27 mmol/L Normal 21-31 [facility] Comment on above: Performed By: #### 2 [id number] #### [facility] [address] [place] [address] Creatinine [Mass/Vol] 0.8 mg/dL Normal 0.5-1.3 [facility] Comment on above: Performed By: #### 2 [id number] #### [facility] [address] [place] [address] Glucose [Mass/Vol] 92 mg/dL Normal 55-199 [facility] Comment on above: Performed By: #### 2 [id number] #### [facility] [address] [place] [address] Potassium [Moles/Vol] 3.6 mmol/L Normal 3.5-5.3 [facility] Comment on above: Performed By: #### 2 [id number] #### [facility] [address] [place] [address] Sodium [Moles/Vol] 136 mmol/L Normal 135-145 [facility] Comment on above: Performed By: #### 2 [id number] #### [facility] [address] [place] [address] Urea nitrogen [Mass/Vol] 15 mg/dL Normal 5-21 [facility] Comment on above: Performed By: #### 2 752118 #### [facility] [address] [place] [address] Urea nitrogen/Creatinine [Mass ratio] 19 No Units Normal 10-20 [facility] Comment on above: Performed By: #### 2 [id number] #### [facility] [address] [place] [address] CBC w/ Auto Diffon 4 Basophils/100 WBC (Bld) 0.6 % Normal 0.0-2.0 [facility] Comment on above: Performed By: #### 2 [id number] #### [facility] [address] [place] [address] Basophils/Leukocytes Auto (Bld) [Pure # fraction] 0.1 E9/L Normal 0.0-0.2 [facility] Comment on above: Performed By: #### 2 [id number] #### [facility] [address] [place] [address] Eosinophils (Bld) [#/Vol] 0.3 E9/L Normal 0.0-0.5 [facility] Comment on above: Performed By: #### 2 [id number] #### [facility] [address] [place] [address] Eosinophils/100 WBC (Bld) 2.6 % Normal 0.0-8.0 [facility] Comment on above: Performed By: #### 2 109010 #### [facility] [address] [place] [address] Erythrocyte distribution width (RBC) [Ratio] 13.9 % Normal 10.9-14.2 [facility] Comment on above: Performed By: #### 2 412852 #### [facility] [address] [place] [address] Hematocrit (Bld) [Volume fraction] 36.4 % Normal 34.0-46.0 [facility] Comment on above: Performed By: #### 2 097230 #### [facility] [address] [place] [address] Hemoglobin (Bld) [Mass/Vol] 12.1 g/dL Normal 12.0-16.0 [facility] Comment on above: Performed By: #### 2 316555 #### [facility] [address] [place] [address] Lymphocytes (Bld) [#/Vol] 3.2 E9/L Normal 1.0-4.0 [facility] Comment on above: Performed By: #### 2 485879 #### [facility] [address] [place] [address] Lymphocytes/100 WBC (Bld) 25.9 % Normal 14.0-50.0 [facility] Comment on above: Performed By: #### 2 715613 #### [facility] [address] [place] [address] MCH (RBC) [Entitic mass] 27.4 pg Normal 27.0-34.0 [facility] Comment on above: Performed By: #### 2 711831 #### [facility] [address] [place] [address] MCHC (RBC) [Mass/Vol] 33.1 g/dL Normal 31.4-36.0 [facility] Comment on above: Performed By: #### 2 843606 #### [facility] [address] [place] [address] MCV (RBC) [Entitic vol] 82.7 fL Normal 80.0-100.0 [facility] Comment on above: Performed By: #### 2 246236 #### [facility] [address] [place] [address] Monocytes (Bld) [#/Vol] 0.9 E9/L Normal 0.2-1.0 [facility] Comment on above: Performed By: #### 2 677874 #### [facility] [address] [place] [address] Neutrophils (Bld) [#/Vol] 8.0 E9/L High 2.0-7.5 [facility] Comment on above: Performed By: #### 2 501203 #### [facility] [address] [place] [address] Neutrophils/100 WBC (Bld) 63.6 % Normal 36.0-75.0 [facility] Comment on above: Performed By: #### 2 754174 #### [facility] [address] [place] [address] Platelet mean volume (Bld) [Entitic vol] 8.3 fL Normal 6.4-10.8 [facility] Comment on above: Performed By: #### 2 096196 #### [facility] [address] [place] [address] Platelets (Bld) [#/Vol] 452.0 E9/L Normal 150. 0-500. 0 [facility] Comment on above: Performed By: #### 2 165806 #### [facility] [address] [place] [address] RBC (Bld) [#/Vol] 4.4 E12/L Normal 4.3-5.9 [facility] Comment on above: Performed By: #### 2 005589 #### [facility] [address] [place] [address] WBC corrected for nucl RBC Auto (Bld) [#/Vol] 12.5 E9/L High 4.0-11.0 [facility] Comment on above: Performed By: #### 2 [id number] #### [facility] [address] [place] [address] CHEMISTRYOrdered By: SYSTEM SYSTEM on 04-10-2024 Anion [...] Sensitivity Troponin I Instructions For Use, Stephy [place], March 2018) Urea nitrogen [Mass/Vol] 15 mg/dL Normal 5 - 21 mg/dL Remisol Chem Urea nitrogen/Creatinine [Mass ratio] 19 mg/mg Normal 10 - 20 Remisol Chem ED Clinical Summaryon 2023 ED Clinical Summary ED Clinical Summary [place] [id number] ED Clinical Summary Person Information Name: ROSE MARY SCHNEIDER/[facility] Age: 18 Years : 2005 Sex: Female Language: Kazakh PCP: Fredi Ellington MD Marital Status: Single [...] 06:46:14 04/10/2024 06:46:14 AD[address]ESS: [address] [place] [id number] PHYS DOC NOTES: MEDICAL INFORMATION: Prescriptions Given: Medications to Continue with No Changes Other Medications acetaminophen-hydrocodone (Cornell 325 mg-5 mg oral tablet) 1 Tablets [...] tablet) PATIENT EDUCATION INFORMATION: Instructions: Syncope, Adult, Fbsm-hb-Oyin Follow up: With: Address: When: Fredi Ellington [address] [place] [address], [address] [place] [phone] Business (1) In 3 days 04/13/2024 Comments: Follow-up with your primary care doctor for further evaluation and management. Please return to the ED for any new or worsening symptoms. DIAGNOSIS: Syncope Normal [facility] ED Note-Physicianon 04-10-20 ED Note-Physician ED Note-Physician [...] and Complexity of Problems Differential Diagnosis: [] [facility] Data External documents reviewed: [] My [...] Ellington In 3 days 04/13/2024 EDT [address] [place] [id number]- Business (1) Additional Instructions: Follow-up with your primary care doctor for further evaluation and management. Please return to the ED for any new or worsening symptoms. Patient Education Syncope, Adult, Hthf-bv-Myiq Problem List/Past Medical History Ongoing Acute pancreatitis [...] 3 mg-10 mg oral tablet, extended release Cornell 325 mg-5 mg oral tablet, 1 tab(s), [...] 05:37:00) HGB: (more content not included)... Normal [facility] Comment on above: Result Comment: Elec tronically Signed By: Ko Draper DO\.br\Date and Time Signed: 04/10/24 06:32 EDT ED Patient Summaryon 024 ED Patient Summary ED Patient Summary [address] [address] Patient Discharge Instructions Person Information Name: ROSE MARY SCHNEIDER Age: 18 Years Arrival Date: 04/10/2024 04:28:55 Discharge Diagnosis: Syncope Primary Care Physician: Fredi Ellington MD Provider Information Primary Provider: Ko Draper DO Advanced Shuttle Preparation Supervisor:None The exam and treatment you received in the Emergency Department were for an urgent problem and are not intended as complete care. It is important that you follow up with a doctor, nurse practitioner, or physician?s sales assistant displays for ongoing care. If your symptoms become [...] Follow-up Instructions: With: Address: When: Fredi Ellington [address] [place] [address], [address] [place] [phone] Business (1) In 3 days 04/13/2024 Comments: Follow-up with your primary care doctor for further evaluation and management. Please return to the ED for any new or worsening symptoms. In the event that this physician does not participate in your insurance network, please consult with your insurance company to find a nearby participating provider. Patient Education Materials: Syncope, Adult, Quum-em-Jivn A MESSAGE TO ALL PATIENTS REGARDING OPIOIDS PRESCRIPTION OPIOIDS: WHAT YOU NEED TO KNOW Prescription opioids can be used to help relieve gxlamhnb-hc-mqpbkg pain and are often prescribed following a [...] you may (more content not included)... Normal [facility] HEMATOLOGYOrdered By: SYSTEM SYSTEM on 04-10-2024 Basophils/100 [...] 04-10-2024 Magnesium [Mass/Vol] 1.9 mg/dL Normal 1.3-2.4 [facility] Comment on above: Performed By: #### 2 [id number] #### [facility] [address] [place] [address] SEROLOGYOrdered By: Lio Sherman on 04-10-2024 Beta HCG ( test) Ql Negative (04/10/24 5:37 AM) Normal [facility] Man Sero Troponin 0 Hr.on 04-10-2024 Troponin HS 3.10 pg/mL Low 10.10-27.1 0 [facility] Comment on above: Result Comment: The 95% CI (Confidence Interval) PPV (Positive Predictive Value) for myocardial infarction in females is 38 pg/mL, in males 51 pg/mL. The results should be used in conjunction with clinical conditions of myocardial infarction. (Access High Sensitivity Troponin I Instructions For Use, Stephy [place], March 2018) Performed By: #### 1 [id number] #### [facility] [address] [place] [address] eGFRon 04-10-2024 eGFR 109 mL/min/1.73 m2 Normal >=59 [facility] Comment on above: Order Comment: Order added by Discern Expert. Performed By: #### 1 [id number] #### [facility] [address] [place] [address] C Urineon 03-16-2024 Bacteria identified Cx Nom [...] Locations R1: This test was performed at: [facility], [address] [place] [address], [id number], [facility] Comment on above: Performed By: #### 2 [id number] #### [facility] [address] [place] [address] ED Clinical Summaryon 2023 ED Clinical Summary ED Clinical Summary [address] [address] ED Clinical Summary Person Information Name: ROSE MARY SCHNEIDER Kimberly/[facility] Age: 18 Years : 2005 Sex: Female Language: Kazakh PCP: Fredi Ellington MD Marital Status: Single [...] 03/15/2024 01:10:59 03/15/2024 01:10:59 03/15/2024 01:10:59 ADDRESS: [address] [place] [id number] [facility] DOC NOTES: MEDICAL INFORMATION: Prescriptions Given: Medications to Continue with No Changes Other Medications acetaminophen-hydrocodone (Cornell 325 mg-5 mg oral tablet) 1 Tablets [...] Help Yourself Follow up: With: Address: When: [facility] In 1 day 03/16/2024 With: Address: When: Fredi Ellington [address] [facility], [address] [place] [phone] Business (1) In 3 days DIAGNOSIS: Ibuprofen overdose Normal [facility] ED Note-Physicianon 03-15-20 ED Note-Physician ED Note-Physician [...] that at 1950 tonight she took 50 yllx-kck-xszqftt ibuprofen of the 200 mg strength. She [...] and Complexity of Problems Differential Diagnosis: [] [facility] Data External documents reviewed: N/A My [...] prescription medications Follow-up With When Contact Information [facility] In 1 day 03/16/2024 EDT Additional Instructions: Fredi Ellington In 3 days [address] [place] [address]- [facility] (1) Additional Instructions: Patient Education [...] 3 mg-10 mg oral tablet, extended release Cornell 325 mg-5 mg oral tablet, 1 tab(s), [...] Lymph Auto: 52.2 % High (03/14/24 22:04:00) Peach Auto: 9.6 % (03/14/24 22:04:00) Eos Auto: 2.3 % (03/14/24 22:04:00) Basophil Auto: 0.4 % (03/14/24 22:04:00) Neutro (more content not included)... Normal [facility] Comment on above: Result Comment: Elec tronically Signed By: Han Bolaños DO\.br\Date and Time Signed: 03/15/24 00:56 EDT ED Patient Summaryon 024 ED Patient Summary ED Patient Summary [place] [id number] Patient Discharge Instructions Person Information Name: ROSE MARY SCHNEIDER Age: 18 Years Arrival Date: 03/14/2024 21:06:23 Discharge Diagnosis: Ibuprofen overdose Primary Care Physician: Fredi Ellington MD Provider Information Primary Provider: Han Bolaños DO Advanced Shuttle Preparation Supervisor:None The exam and treatment you received in the Emergency Department were for an urgent problem and are not intended as complete care. It is important that you follow up with a doctor, nurse practitioner, or physician?s sales assistant displays for ongoing care. If your symptoms become worse or you do not improve as expected and you are unable to reach your usual health care provider, you should return to the Emergency Department. We are available 24 hours a day. ROSE MARY SCHNEIDER has been given the following list of patient education materials, prescriptions and follow-up instructions: Follow-up Instructions: With: Address: When: [facility] In 1 day 03/16/2024 With: Address: When: Fredi Ellington [address] [place] [address], [facility] [address] [place] [phone] [facility] (1) In 3 days In the event that this physician does not participate in your insurance network, please consult with your insurance company to find a nearby participating provider. Patient Education Materials: Suicidal Feelings: How to Help Yourself A MESSAGE TO ALL PATIENTS REGARDING OPIOIDS PRESCRIPTION OPIOIDS: WHAT YOU NEED TO KNOW Prescription opioids can be used to help relieve myqrdnxq-si-wmfhpk pain and are often prescribed following a [...] care pr (more content not included)... Normal [facility] Acetamnphn Lvlon 03-14-2024 Acetaminoph Lvl <.1 Low 15.0-30.0 [facility] Comment on above: Performed By: #### 2 [id number] #### [facility] [address] [place] [address] CBC w/ Auto Diffon 4 Basophils/100 WBC (Bld) 0.4 % Normal 0.0-2.0 [facility] Comment on above: Performed By: #### 2 [id number] #### [facility] [address] [place] [address] Basophils/Leukocytes Auto (Bld) [Pure # fraction] 0.0 E9/L Normal 0.0-0.2 [facility] Comment on above: Performed By: #### 2 [id number] #### [facility] [address] [place] [address] Eosinophils (Bld) [#/Vol] 0.2 E9/L Normal 0.0-0.5 [facility] Comment on above: Performed By: #### 2 418600 #### [facility] [address] [place] [address] Eosinophils/100 WBC (Bld) 2.3 % Normal 0.0-8.0 [facility] Comment on above: Performed By: #### 2 920310 #### [facility] [address] [place] [address] Erythrocyte distribution width (RBC) [Ratio] 13.8 % Normal 10.9-14.2 [facility] Comment on above: Performed By: #### 2 409113 #### [facility] [address] [place] [address] Hematocrit (Bld) [Volume fraction] 35.4 % Normal 34.0-46.0 [facility] Comment on above: Performed By: #### 2 422577 #### [facility] [address] [place] [address] Hemoglobin (Bld) [Mass/Vol] 12.2 g/dL Normal 12.0-16.0 [facility] Comment on above: Performed By: #### 2 831234 #### [facility] [address] [place] [address] Lymphocytes (Bld) [#/Vol] 3.4 E9/L Normal 1.0-4.0 [facility] Comment on above: Performed By: #### 2 153901 #### [facility] [address] [place] [address] Lymphocytes/100 WBC (Bld) 52.2 % High 14.0-50.0 [facility] Comment on above: Performed By: #### 2 149460 #### [facility] [address] [place] [address] MCH (RBC) [Entitic mass] 28.7 pg Normal 27.0-34.0 [facility] Comment on above: Performed By: #### 2 607209 #### [facility] [address] [place] [address] MCHC (RBC) [Mass/Vol] 34.3 g/dL Normal 31.4-36.0 [facility] Comment on above: Performed By: #### 2 327210 #### [facility] [address] [place] [address] MCV (RBC) [Entitic vol] 83.5 fL Normal 80.0-100.0 [facility] Comment on above: Performed By: #### 2 862066 #### [facility] [address] [place] [address] Monocytes (Bld) [#/Vol] 0.6 E9/L Normal 0.2-1.0 [facility] Comment on above: Performed By: #### 2 853216 #### [facility] [address] [place] [address] Neutrophils (Bld) [#/Vol] 2.3 E9/L Normal 2.0-7.5 [facility] Comment on above: Performed By: #### 2 052364 #### [facility] [address] [place] [address] Neutrophils/100 WBC (Bld) 35.5 % Low 36.0-75.0 [facility] Comment on above: Performed By: #### 2 828477 #### [facility] [address] [place] [address] Platelet 404.0 E9/L Normal 150.0-500. 0 [facility] Comment on above: Performed By: #### 2 [id number] #### [facility] [address] [place] [address] Platelet mean volume (Bld) [Entitic vol] 7.4 fL Normal 6.4-10.8 [facility] Comment on above: Performed By: #### 2 535394 #### [facility] [address] [place] [id number] RBC (Bld) [#/Vol] 4.2 E12/L Low 4.3-5.9 [facility] Comment on above: Performed By: #### 2 566881 #### [facility] [address] [place] [id number] WBC corrected for nucl RBC Auto (Bld) [#/Vol] 6.4 E9/L Normal 4.0-11.0 [facility] Comment on above: Performed By: #### 2 476121 #### [facility] [address] [place] [id number] CHEMISTRYOrdered By: SYSTEM SYSTEM on 03-14-2024 Amphetamines [...] 03-14-2024 Albumin [Mass/Vol] 3.5 g/dL Normal 3.3-5.0 [facility] Comment on above: Performed By: #### 2 275104 #### [facility] [address] [place] [address] Albumin/Globulin (S) [Mass conc ratio] 1.2 Normal 1.1-2.2 [facility] Comment on above: Performed By: #### 2 802361 #### [facility] [address] [place] [address] ALP [Catalytic activity/Vol] 37 Int._Unit/L Normal 21-98 [facility] Comment on above: Performed By: #### 2 465222 #### [facility] [address] [place] [address] ALT No additional P-5'-P [Catalytic activity/Vol] 19 Int._Unit/L Normal 6-46 [facility] Comment on above: Performed By: #### 2 753790 #### [facility] [address] [place] [address] Anion gap [Moles/Vol] 13 mmol/L Normal 6-16 [facility] Comment on above: Performed By: #### 2 [id number] #### [facility] [address] [place] [address] AST [Catalytic activity/Vol] 18 Int._Unit/L Normal 5-43 [facility] Comment on above: Performed By: #### 2 [id number] #### [facility] [address] [place] [address] Bilirubin [Mass/Vol] 0.2 mg/dL Normal 0.0-1.1 [facility] Comment on above: Performed By: #### 2 [id number] #### [facility] [address] [place] [address] Calcium [Mass/Vol] 8.5 mg/dL Low 8.9-11.1 [facility] Comment on above: Performed By: #### 2 [id number] #### [facility] [address] [place] [address] Chloride [Moles/Vol] 104 mmol/L Normal 101-111 [facility] Comment on above: Performed By: #### 2 [id number] #### [facility] [address] [place] [address] CO2 [Moles/Vol] 25 mmol/L Normal 21-31 [facility] Comment on above: Performed By: #### 2 [id number] #### [facility] [address] [place] [address] Creatinine [Mass/Vol] 0.8 mg/dL Normal 0.5-1.3 [facility] Comment on above: Performed By: #### 2 [id number] #### [facility] [address] [place] [address] Globulin (S) [Mass/Vol] 3.0 g/dL Normal 1.4-4.0 [facility] Comment on above: Performed By: #### 2 [id number] #### [facility] [address] [place] [address] Glucose [Mass/Vol] 86 mg/dL Normal 55-199 [facility] Comment on above: Performed By: #### 2 [id number] #### [facility] [address] [place] [address] Potassium [Moles/Vol] 3.7 mmol/L Normal 3.5-5.3 [facility] Comment on above: Performed By: #### 2 [id number] #### [facility] [address] [place] [address] Protein [Mass/Vol] 6.5 g/dL Normal 6.0-7.8 [facility] Comment on above: Performed By: #### 2 853165 #### [facility] [address] [place] [address] Sodium [Moles/Vol] 138 mmol/L Normal 135-145 [facility] Comment on above: Performed By: #### 2 [id number] #### [facility] [address] [place] [address] Urea nitrogen [Mass/Vol] 8 mg/dL Normal 5-21 [facility] Comment on above: Performed By: #### 2 [id number] #### [facility] [address] [place] [address] Urea nitrogen/Creatinine [Mass ratio] 10 No Units Normal 10-20 [facility] Comment on above: Performed By: #### 2 [id number] #### [facility] [address] [place] [address] Ethanolon 03-14-2024 Ethanol Lvl <10 Normal <=11 [facility] Comment on above: Performed By: #### 2 787872 #### [facility] [address] [place] [address] HEMATOLOGYOrdered By: SYSTEM SYSTEM on 03-14-2024 Basophils/100 [...] Cx Nom (U) No growth to date [facility] SEROLOGYOrdered By: Debby Cleveland on 03-14-2024 HCG.beta subunit (U) [Moles/Vol] Negative Normal [facility] Man Sero Salicylateon 03-14-2024 Salicylate Lvl <2 Low 6-29 [facility] Comment on above: Performed By: #### 2 [id number] #### [facility] [address] [place] [address] U BetaHcg Qualon 03-14-2024 HCG.beta subunit (U) [Moles/Vol] Negative Normal [facility] Comment on above: Performed By: #### 2 [id number] #### [facility] [address] [place] [address] U Drug Screenon 03-14-2024 Amphetamines Screen method >1000 ng/mL Ql (U) Negative Normal NEGATIVE [facility] Comment on above: Result Comment: Nega tive Cutoff: <1000 ng/mL Performed By: #### 2 925590 #### [facility] [address] [place] [address] Barbiturates Screen Ql (U) Negative Normal NEGATIVE [facility] Comment on above: Result Comment: Nega tive Cutoff: <200 ng/mL Performed By: #### 2 978729 #### [facility] [address] [place] [address] Benzodiazepines Ql (U) Negative Normal NEGATIVE [facility] Comment on above: Result Comment: Nega tive Cutoff: <200 ng/mL Performed By: #### 2 [id number] #### [facility] [address] [place] [address] Cannabinoids Screen Ql (U) Negative Normal NEGATIVE [facility] Comment on above: Result Comment: Nega tive Cutoff: <50 ng/mL Performed By: #### 2 [id number] #### [facility] [address] [place] [address] Cocaine Ql (U) Negative Normal NEGATIVE [facility] Comment on above: Result Comment: Nega tive Cutoff: <300 ng/mL Performed By: #### 2 796716 #### [facility] [address] [place] [address] Opiates Screen Ql (U) Negative Normal NEGATIVE [facility] Comment on above: Result Comment: Nega tive Cutoff: <300 ng/mL Performed By: #### 2 [id number] #### [facility] [address] [place] [address] Phencyclidine Screen method >25 ng/mL Ql (U) Negative Normal NEGATIVE [facility] Comment on above: Result Comment: Nega tive Cutoff: <25 ng/mL These drug screen results are to be used for medical (i.e., treatment) purposes only. Unconfirmed drug screening results must not be used for non-medical purposes (e.g., employment testing, legal testing). Performed By: #### 2 [id number] #### [facility] [address] [place] [address] U Fentanyl Negative Normal NEGATIVE [facility] Comment on above: Result Comment: Nega tive Cutoff: <5 ng/mL These drug screen results are to be used for medical (i.e., treatment) purposes only. Unconfirmed drug screening results must not be used for non-medical purposes (e.g., employment testing, legal testing). Performed By: #### 2 [id number] #### [facility] [address] [place] [address] UA with Cult Rflxon 03-14-20 24 Bilirubin Ql (U) Negative Normal Negative [facility] Comment on above: Performed By: #### 4 [id number] #### [facility] [address] [place] [address] Clarity (U) Clear Normal Clear [facility] Comment on above: Performed By: #### 4 [id number] #### [facility] [address] [place] [address] Color (U) Light-Yellow Normal Yellow [facility] Comment on above: Result Comment: Micr oscopic readings are only performed on those samples that meet specific criteria set forth by [facility]. Performed By: #### 4 [id number] #### [facility] [address] [place] [address] Epithelial cells.squamous Auto (Urine sed) [#/Area] 5-8 Invalid Interpretation Code [facility] Comment on above: Performed By: #### 4 [id number] #### [facility] [address] [place] [address] Glucose Ql (U) Negative Normal Negative [facility] Comment on above: Performed By: #### 4 [id number] #### [facility] [address] [place] [address] Hemoglobin Auto test strip (U) [Mass/Vol] Negative Normal Negative [facility] Comment on above: Performed By: #### 4 [id number] #### [facility] [address] [place] [address] Hyaline casts LM Ql (Urine sed) 0-3 Normal 0-3 [facility] Comment on above: Performed By: #### 4 [id number] #### [facility] [address] [place] [address] Ketones Auto test strip Ql (U) 1+ mg/dL Abnormal Negative [facility] Comment on above: Performed By: #### 4 [id number] #### [facility] [address] [place] [address] Leukocyte esterase Auto test strip Ql (U) 75 Uzair/uL Abnormal Negative [facility] Comment on above: Performed By: #### 4 [id number] #### [facility] [address] [place] [address] Mucus Auto Ql (U) Negative Normal Negative [facility] Comment on above: Performed By: #### 4 [id number] #### [facility] [address] [place] [address] Nitrite Auto test strip Ql (U) Negative Normal Negative [facility] Comment on above: Performed By: #### 4 [id number] #### [facility] [address] [place] [address] pH (U) 6.0 [pH] Invalid Interpretation Code 5.0-9.0 [facility] Comment on above: Performed By: #### 4 [id number] #### [facility] [address] [place] [address] Protein Ql (U) Trace Abnormal Negative [facility] Comment on above: Performed By: #### 4 [id number] #### [facility] [address] [place] [address] RBC Ql (U) 0-3 Normal 0-3 [facility] Comment on above: Performed By: #### 4 [id number] #### [facility] [address] [place] [address] Specific gravity (U) [Rel density] 1.036 Invalid Interpretation Code 1.005-1.03 0 [facility] Comment on above: Performed By: #### 4 [id number] #### [facility] [address] [place] [address] Urobilinogen (U) [Mass/Vol] Negative Normal Negative [facility] Comment on above: Performed By: #### 4 [id number] #### [facility] [address] [place] [address] WBC Auto (Urine sed) [#/Area] 0-5 Normal 0-5 [facility] Comment on above: Performed By: #### 4 [id number] #### [facility] [address] [place] [address] Type of Urine collection method Clean Catch Normal [facility] Comment on above: Performed By: #### 4 [id number] #### [facility] [address] [place] [address] URINALYSISOrdered By: Lady Cleveland on 03-14-2024 Bilirubin Ql (U) Negative Normal Negativemg /dL [facility] UA Auto SS Clarity (U) Clear (03/14/24 10:22 PM) Normal Clear [facility] UA Auto SS Color (U) Light-Yellow 3 (03/14/24 10:22 PM) Normal Yellow [facility] UA Auto SS Comment on above: Interpretive Data: M icroscopic readings are only performed on those samples that meet specific criteria set forth by [facility]. Epithelial cells.squamous Auto (Urine sed) [#/Area] [...] 03-14-2024 eGFR 109 mL/min/1.73 m2 Normal >=59 [facility] Comment on above: Order Comment: Order added by Discern Expert. Performed By: #### 1 [id number] #### [facility] [address] [place] [address] CT Abdomen w/ Contraston CT Abdomen w/ [...] Oral contrast amount in ml's: 900 Normal [facility] CHEMISTRYOrdered By: SYSTEM SYSTEM on 03-03-2024 25-hydroxyvitamin [...] 03-03-2024 Glucose [Mass/Vol] 91 mg/dL Normal 55-99 [facility] Comment on above: Performed By: #### 2 [id number] #### [facility] [address] [place] [address] [id number] 03-03-2024 HbA1c (Bld) [Mass fraction] 5.3 % Normal <=5.9 [facility] Comment on above: Performed By: #### 7 [id number] #### [facility] [address] [place] [address] Lipid Panelon 03-03-2024 Cholesterol [Mass/Vol] 225 mg/dL High 120-200 [facility] Comment on above: Performed By: #### 2 [id number] #### [facility] [address] [place] [address] Cholesterol in HDL [Mass/Vol] 53 mg/dL Invalid Interpretation Code [facility] Comment on above: Result Comment: '>= 60 LOW RISK' '<= 40 HIGH RISK' Performed By: #### 2 [id number] #### [facility] [address] [place] [address] Cholesterol in LDL [Mass/Vol] 165 mg/dL High <=129 [facility] Comment on above: Performed By: #### 2 [id number] #### [facility] [address] [facility] [place] [facility] [place] [address] Cholesterol in VLDL [Mass/Vol] 35 mg/dL Normal 7-40 [facility] Comment on above: Performed By: #### 2 [id number] #### [facility] [address] [place] [address] Triglyceride [Mass/Vol] 173 mg/dL High <=149 [facility] Comment on above: Performed By: #### 2 [id number] #### [facility] [address] [facility] [place] [facility] [place] [address] Vitamin D 25 Hydroxyon 03-03 25-hydroxyvitamin D3 [Mass/Vol] 18.5 ng/mL Low 30.0-100.0 [facility] Comment on above: Performed By: #### 5 [id number] #### [facility] [address] [place] [address] US Gallbladderon 02-17-2024 US Gallbladder Exam Date/Time: [...] Devine Transcribed by: GARTH Technologist: LI [facility] General Surgery Office/Clini c Noteon 02-09-2024 General Surgery Office/Clinic Note General Surgery Office/Clinic Note 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 female here for surgical consult Dr. Hernandez referring Patient has a hx of pancreatitis and family hx of pancreatitis. Last flare up CT abd/pel done 01/13/2024 She is having right sided pain History of Present Illness Consent: The patient or their guardian verbally consented to allow [employer] to record this visit. Rose Mary Schneider [...] with voice recognition artificial intelligence software, specifically [employer], [employer] and or [employer]. Substitutions may have occurred due to the inherent limitations of voice recognition and artificial intelligence software. ATTESTATION: Documentation services were performed after patient or guardian consented to allow [employer] to record this visit. CORINNE health education specialist and provider reviewed before signing. CORINNE: [...] Cap 08/04 (more content not included)... Normal [facility] Comment on above: Result Comment: [...] (APAP/butalbital/caffeine 325 mg-50 mg-40 mg Tab) acetaminophen-hydrocodone (Cornell 325 mg-5 mg oral tablet) cetirizine (cetirizine [...] Pancreatitis, No, No, Acute pancreatitis Normal [facility] Gastroenterology Office/Clin ic Noteon 01-22-2024 Gastroenterology Office/Clinic [...] pain worse. 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 Discharge Prescription List Prescriptions Cornell 325 mg-5 mg oral tablet, 1 tab(s), [...] 84.7 fL (01/13/24) Chloride: 105 mmol/L (01/13/24) Peach Absolute: 0.5 E9/L (01/13/24) CO2: 27 mmol/L (01/13/24) Peach Auto: 7.4 % (01/13/24) Creatinine: 0.8 mg/dL [...] soft, nontender (more content not included)... 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 Patient will be sent home with pain [...] Nausea/Vomiting, # 12 tab(s), Refills(s) 0, Pharmacy: [facility] #[id number], 165.1, cm, 01/12/24 15:00:00 EDT, Height/Length Dosing, 117.7, kg, 01/12/24 15:00:00 EDT, Weight Dosing 3. Elevated lipase (R74.8: Abnormal levels of other serum enzymes) Ordered: tram (more content not included)... Normal [facility] Comment on above: Result Comment: [...] Contrast amount in ml's: 100 Normal [facility] ED Note-Physicianon 01-14-20 ED Note-Physician Basic Information Time Seen: Mirella Camilo PA-C 01/13/2024 18:36 Chief Complaint seen here yesterday told she was just shy of pancreatitis. states abdominal pain worse. 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 The patient is being discharged with Cornell and Pepcid for pain management. Patient states [...] Discharge Disposition home Discharge Prescription List Prescriptions Cornell 325 mg-5 mg oral tablet, 1 tab(s), Oral, q6hr, PRN Pepcid AC 10 mg oral tablet, 10 mg= 1 tab(s), Oral, BID, PRN Follow- (more content not included)... Normal [facility] Comment on above: Result Comment: Elec tronically Signed By: Mirella Camilo PA-C\.br\Date and Time Signed: 01/13/24 21:12 EDT\.br\Electronically Co-Signed By: Mirella Camilo PA-C\.br\Date and Time Co-Signed: 01/14/24 00:04 EDT\.br\Electronically Co-Signed By: Migue Farrell M.D.\.br\Date and Time Co-Signed: 01/14/24 07:02 EDT BMPon 01-13-2024 Anion gap [Moles/Vol] 9 mmol/L Normal 6-16 [facility] Comment on above: Performed By: #### 2 [id number] #### [facility] [address] [place] [address] Calcium [Mass/Vol] 8.6 mg/dL Low 8.9-11.1 [facility] Comment on above: Performed By: #### 2 [id number] #### [facility] [address] [place] [address] Chloride [Moles/Vol] 105 mmol/L Normal 101-111 [facility] Comment on above: Performed By: #### 2 [id number] #### [facility] [address] [place] [address] CO2 [Moles/Vol] 27 mmol/L Normal 21-31 [facility] Comment on above: Performed By: #### 2 [id number] #### [facility] [address] [place] [address] Creatinine [Mass/Vol] 0.8 mg/dL Normal 0.5-1.3 [facility] Comment on above: Performed By: #### 2 [id number] #### [facility] [address] [place] [address] Glucose [Mass/Vol] 96 mg/dL Normal 55-199 [facility] Comment on above: Performed By: #### 2 [id number] #### [facility] [address] [place] [address] Potassium [Moles/Vol] 3.6 mmol/L Normal 3.5-5.3 [facility] Comment on above: Performed By: #### 2 [id number] #### [facility] [address] [place] [address] Sodium [Moles/Vol] 137 mmol/L Normal 135-145 [facility] Comment on above: Performed By: #### 2 [id number] #### [facility] [address] [place] [address] Urea nitrogen [Mass/Vol] 9 mg/dL Normal 5-21 [facility] Comment on above: Performed By: #### 2 [id number] #### [facility] [address] [place] [address] Urea nitrogen/Creatinine [Mass ratio] 11 No Units Normal 10-20 [facility] Comment on above: Performed By: #### 2 [id number] #### [facility] [address] [place] [address] CBC w/ Auto Diffon 4 Basophils/100 WBC (Bld) 0.6 % Normal 0.0-2.0 [facility] Comment on above: Performed By: #### 2 [id number] #### [facility] [address] [place] [address] Basophils/Leukocytes Auto (Bld) [Pure # fraction] 0.0 E9/L Normal 0.0-0.2 [facility] Comment on above: Performed By: #### 2 [id number] #### [facility] [address] [place] [address] Eosinophils (Bld) [#/Vol] 0.2 E9/L Normal 0.0-0.5 [facility] Comment on above: Performed By: #### 2 704294 #### [facility] [address] [place] [address] Eosinophils/100 WBC (Bld) 2.6 % Normal 0.0-8.0 [facility] Comment on above: Performed By: #### 2 [id number] #### [facility] [address] [place] [address] Erythrocyte distribution width (RBC) [Ratio] 13.8 % Normal 10.9-14.2 [facility] Comment on above: Performed By: #### 2 [id number] #### [facility] [address] [place] [address] Hematocrit (Bld) [Volume fraction] 35.6 % Normal 34.0-46.0 [facility] Comment on above: Performed By: #### 2 261582 #### [facility] [address] [place] [address] Hemoglobin (Bld) [Mass/Vol] 11.8 g/dL Low 12.0-16.0 [facility] Comment on above: Performed By: #### 2 908507 #### [facility] [address] [place] [address] Lymphocytes (Bld) [#/Vol] 2.9 E9/L Normal 1.0-4.0 [facility] Comment on above: Performed By: #### 2 853624 #### [facility] [address] [place] [address] Lymphocytes/100 WBC (Bld) 40.4 % Normal 14.0-50.0 [facility] Comment on above: Performed By: #### 2 239687 #### [facility] [address] [place] [address] MCH (RBC) [Entitic mass] 28.0 pg Normal 27.0-34.0 [facility] Comment on above: Performed By: #### 2 243403 #### [facility] [address] [place] [address] MCHC (RBC) [Mass/Vol] 33.1 g/dL Normal 31.4-36.0 [facility] Comment on above: Performed By: #### 2 203538 #### [facility] [address] [place] [address] MCV (RBC) [Entitic vol] 84.7 fL Normal 80.0-100.0 [facility] Comment on above: Performed By: #### 2 696792 #### [facility] [address] [place] [address] Monocytes (Bld) [#/Vol] 0.5 E9/L Normal 0.2-1.0 [facility] Comment on above: Performed By: #### 2 723349 #### [facility] [address] [place] [address] Neutrophils (Bld) [#/Vol] 3.5 E9/L Normal 2.0-7.5 [facility] Comment on above: Performed By: #### 2 [id number] #### [facility] [address] [place] [address] Neutrophils/100 WBC (Bld) 49.0 % Normal 36.0-75.0 [facility] Comment on above: Performed By: #### 2 019677 #### [facility] [address] [place] [address] Platelet mean volume (Bld) [Entitic vol] 8.1 fL Normal 6.4-10.8 [facility] Comment on above: Performed By: #### 2 611826 #### [facility] [address] [place] [address] Platelets (Bld) [#/Vol] 394.0 E9/L Normal 150. 0-500. 0 [facility] Comment on above: Performed By: #### 2 147640 #### [facility] [address] [place] [address] RBC (Bld) [#/Vol] 4.2 E12/L Low 4.3-5.9 [facility] Comment on above: Performed By: #### 2 412363 #### [facility] [address] [place] [address] WBC corrected for nucl RBC Auto (Bld) [#/Vol] 7.1 E9/L Normal 4.0-11.0 [facility] Comment on above: Performed By: #### 2 [id number] #### [facility] [address] [place] [address] CHEMISTRYOrdered By: SYSTEM SYSTEM on 01-13-2024 Albumin [...] Consent for Treatmenton 01-01 Consent for Treatment [id number] Normal [facility] Discharge Instructionson Discharge Instructions [id number] Normal [facility] ED Clinical Summaryon 2023 ED Clinical Summary (Inserted Image. Nida ble to display) [address] [address] ED Clinical Summary Person Information Name: ELIZABETH SCHNEIDERNICA Divya [facility] Age: 18 Years : 2005 Sex: Female Language: Kazakh PCP: Fredi Ellington MD Marital Status: Single Phone: [phone] Visit Id: Visit Reason: Abdominal pain; AB [...] 01/13/2024 21:12:34 01/13/2024 21:12:34 01/13/2024 21:12:34 ADDRESS: [address] [place] [phone] PHYS DOC NOTES: MEDICAL INFORMATION: Prescriptions Given: New Medications [facility]/pharmacy #[id number], [address] [place], [place] [id number], [phone] acetaminophen-hydrocodone (Cornell 325 mg-5 mg oral tablet) 1 Tablets [...] 0. PATIENT EDUCATION INFORMATION: Instructions: Acute Pancreatitis, Ytbn-to-Iavw Follow up: With: Address: When: Zenon Hernandez [address] [place] [phone] [employer] (1) In 3 days 01/16/2024 Comments: Call to schedule an appointment with the sawmilling operator for further management of care With: Address: When: Fredi Ellington [address] [facility] [place] [address] [employer] (1) In 3 days DIAGNOSIS: Acute pancreatitis; Mild nausea Normal [facility] ED Patient Education Noteon 01-13-2024 ED Patient [...] these instructions at home: Medicines ? Take [id number] and prescription medicines only as told by [...] Reviewed: 06/10/2022 Elsevier Patient Education ? 2022 [employer] Normal [facility] ED Patient Summaryon 024 ED Patient Summary (Inserted Image. Nida ble to display) [address] [address] Patient Discharge Instructions Person Information Name: ROSE MARY SCHNEIDER Age: 18 Years Arrival Date: 01/13/2024 18:21:08 Discharge Diagnosis: Acute pancreatitis; Mild nausea Primary Care Physician: Fredi Ellington MD Provider Information Primary Provider: Ko Draper DO [employer] Supervisor:Mirella Camilo PA-C The exam and treatment you received in the Emergency Department were for an urgent problem and are not intended as complete care. It is important that you follow up with a doctor, nurse practitioner, or physician?s sales assistant displays for ongoing care. If your symptoms become [...] Follow-up Instructions: With: Address: When: Zenon Hernandez [address] [place] [address] [address] [phone] [email or web address] (1) In 3 days 01/16/2024 Comments: Call to schedule an appointment with the sawmilling operator for further management of care With: Address: When: Fredi Ellington [address] [facility] [address] [place] [phone] [employer] (1) In 3 days In the event that this physician does not participate in your insurance network, please consult with your insurance company to find a nearby participating provider. Patient Education Materials: Acute Pancreatitis, Iwrp-mm-Flsa A MESSAGE TO ALL PATIENTS REGARDING OPIOIDS PRESCRIPTION OPIOIDS: WHAT YOU NEED TO KNOW Prescription opioids can be used to help relieve ofrmzpmc-yv-vxckvr pain and are often prescribed following a [...] and Drug Administration (www.fda.gov/Drugs/Resour cesForYou). ? Visit www.MakuCell (more content not included)... Normal [facility] HEMATOLOGYOrdered By: SYSTEM SYSTEM on 01-13-2024 Basophils/100 [...] 01-13-2024 Albumin [Mass/Vol] 3.4 g/dL Normal 3.3-5.0 [facility] Comment on above: Performed By: #### 2 [id number] #### [facility] [address] [place] [address] Albumin/Globulin (S) [Mass conc ratio] 1.0 Low 1.1-2.2 [facility] Comment on above: Performed By: #### 2 [id number] #### [facility] [address] [place] [address] ALP [Catalytic activity/Vol] 45 Int._Unit/L Normal 21-98 [facility] Comment on above: Performed By: #### 2 [id number] #### [facility] [address] [place] [address] ALT No additional P-5'-P [Catalytic activity/Vol] 11 Int._Unit/L Normal 6-46 [facility] Comment on above: Performed By: #### 2 [id number] #### [facility] [address] [place] [address] AST [Catalytic activity/Vol] 12 Int._Unit/L Normal 5-43 [facility] Comment on above: Performed By: #### 2 [id number] #### [facility] [address] [place] [address] Bilirubin [Mass/Vol] 0.3 mg/dL Normal 0.0-1.1 [facility] Comment on above: Performed By: #### 2 [id number] #### [facility] [address] [place] [address] Bilirubin.direct [Mass/Vol] 0.0 mg/dL Normal 0.0-0.4 [facility] Comment on above: Performed By: #### 2 [id number] #### [facility] [address] [place] [address] Bilirubin.indirect [Mass or moles/Vol] 0.3 mg/dL Normal 0.1-0.9 [facility] Comment on above: Performed By: #### 2 471321 #### [facility] [address] [place] [address] Globulin (S) [Mass/Vol] 3.3 g/dL Normal 1.4-4.0 [facility] Comment on above: Performed By: #### 2 113125 #### [facility] [address] [place] [address] Protein [Mass/Vol] 6.7 g/dL Normal 6.0-7.8 [facility] Comment on above: Performed By: #### 2 043117 #### [facility] [address] [place] [address] Lipase Levelon 01-13-2024 Lipase [Catalytic activity/Vol] 144 U/L High 13-58 [facility] Comment on above: Performed By: #### 2 124488 #### [facility] [address] [place] [address] RAD - Preliminary Cat Scan R eporton 01-13-2024 RAD - Preliminary Cat Scan Report [id number]#1.00TIFF Normal [facility] UA with Cult Rflxon 01-13-20 24 Bilirubin Ql (U) Negative Normal Negative [facility] Comment on above: Performed By: #### 4 [id number] ####[facility] [address] [place] [address] Clarity (U) Clear Normal Clear [facility] Comment on above: Performed By: #### 4 [id number] ####[facility] [address] [place] [address] Color (U) Colorless Abnormal Yellow [facility] Comment on above: Result Comment: Micr oscopic readings are only performed on those samples that meet specific criteria set forth by [facility]. Performed By: #### 4 [id number] ####[address] [address] Epithelial cells.squamous Auto (Urine sed) [#/Area] 0-2 Invalid Interpretation Code [facility] Comment on above: Performed By: #### 4 [id number] ####[address] [place] [address] Glucose Ql (U) Negative Normal Negative [facility] Comment on above: Performed By: #### 4 [id number] ####[address] [address] Hemoglobin Auto test strip (U) [Mass/Vol] 1+ mg/dL Abnormal Negative [facility] Comment on above: Performed By: #### 4 [id number] ####[address] [address] Ketones Auto test strip Ql (U) Negative Normal Negative [facility] Comment on above: Performed By: #### 4 [id number] ####[address] [address] Leukocyte esterase Auto test strip Ql (U) Negative Normal Negative [facility] Comment on above: Performed By: #### 4 [id number] ####[address] [address] Mucus Auto Ql (U) Negative Normal Negative [facility] Comment on above: Performed By: #### 4 [id number] ####[facility] [address] [place] [address] Nitrite Auto test strip Ql (U) Negative Normal Negative [facility] Comment on above: Performed By: #### 4 [id number] ####[address] [address] pH (U) 6.5 [pH] Invalid Interpretation Code 5.0-9.0 [facility] Comment on above: Performed By: #### 4 [id number] ####[place] [address] Protein Ql (U) Negative Normal Negative [facility] Comment on above: Performed By: #### 4 [id number] ####[place] [address] RBC Ql (U) 0-3 Normal 0-3 [facility] Comment on above: Performed By: #### 4 [id number] ####[place] [address] Specific gravity (U) [Rel density] 1.024 Invalid Interpretation Code 1.005-1.03 0 [facility] Comment on above: Performed By: #### 4 [id number] ####[place] [address] Urobilinogen (U) [Mass/Vol] Negative Normal Negative [facility] Comment on above: Performed By: #### 4 [id number] ####[place] [address] WBC Auto (Urine sed) [#/Area] 0-5 Normal 0-5 [facility] Comment on above: Performed By: #### 4 [id number] ####[place] [address] Type of Urine collection method Clean Catch Normal [facility] Comment on above: Performed By: #### 4 [id number] ####[place] [id number] URINALYSISOrdered By: SYSTEM SYSTEM on 01-13-2024 Bilirubin Ql (U) Negative Normal Negativemg /dL [facility] UA Auto SS Clarity (U) Clear (01/13/24 7:41 PM) Normal Clear [facility] UA Auto SS Color (U) Colorless 1 *ABN* (01/13/24 7:41 PM) Invalid Interpretation Code Yellow [facility] UA Auto SS Comment on above: Interpretive Data: M icroscopic readings are only performed on those samples that meet specific criteria set forth by [facility]. Epithelial cells.squamous Auto (Urine sed) [#/Area] 0-2 graded/HPF Invalid Interpretation Code [facility] UA Auto SS Glucose Ql (U) Negative [...] [facility] [place] UA Auto SS Protein Ql (U) Negative Normal Negativemg /dL [facility] UA Auto SS RBC Ql (U) 0-3 graded/HPF Normal 0-3graded/ HPF [facility] UA Auto SS Specific gravity (U) [Rel density] 1.024 *NA* (01/13/24 7:41 PM) Invalid Interpretation Code 1.005 - 1.030 [facility] UA Auto SS Urobilinogen (U) [Mass/Vol] Negative Normal Negativemg /dL [facility] UA Auto SS WBC Auto (Urine sed) [#/Area] 0-5 graded/HPF Normal 0-5graded/ HPF [facility] UA Auto SS URINALYSISOrdered By: Mirella Camilo on 01-13-2024 UA Spec Desc Clean Catch (01/13/24 7:41 PM) Normal [facility] UA Auto SS Work Phone: eGFRon 01-13-2024 eGFR 109 mL/min/1.73 m2 Normal >=59 [facility] Comment on above: Order Comment: Order added by Discern Expert. Performed By: #### 1 [id number] #### [facility] [address] [place] [address] CBC w/ Auto Diffon 4 Basophils/100 WBC (Bld) 0.4 % Normal 0.0-2.0 [facility] Comment on above: Performed By: #### 2 136339 #### [facility] [address] [place] [address] Basophils/Leukocytes Auto (Bld) [Pure # fraction] 0.0 E9/L Normal 0.0-0.2 [facility] Comment on above: Performed By: #### 2 973232 #### [facility] [address] [place] [address] Eosinophils (Bld) [#/Vol] 0.2 E9/L Normal 0.0-0.5 [facility] Comment on above: Performed By: #### 2 883795 #### [facility] [address] [place] [address] Eosinophils/100 WBC (Bld) 2.3 % Normal 0.0-8.0 [facility] Comment on above: Performed By: #### 2 170571 #### [facility] [address] [place] [address] Erythrocyte distribution width (RBC) [Ratio] 13.9 % Normal 10.9-14.2 [facility] Comment on above: Performed By: #### 2 821091 #### [facility] [address] [place] [address] Hematocrit (Bld) [Volume fraction] 37.3 % Normal 34.0-46.0 [facility] Comment on above: Performed By: #### 2 076215 #### [facility] [address] [place] [address] Hemoglobin (Bld) [Mass/Vol] 12.7 g/dL Normal 12.0-16.0 [facility] Comment on above: Performed By: #### 2 525651 #### [facility] [address] [place] [address] Lymphocytes (Bld) [#/Vol] 2.3 E9/L Normal 1.0-4.0 [facility] Comment on above: Performed By: #### 2 009560 #### [facility] [address] [place] [address] Lymphocytes/100 WBC (Bld) 33.8 % Normal 14.0-50.0 [facility] Comment on above: Performed By: #### 2 561080 #### [facility] [address] [place] [address] MCH (RBC) [Entitic mass] 28.5 pg Normal 27.0-34.0 [facility] Comment on above: Performed By: #### 2 964269 #### [facility] [address] [place] [address] MCHC (RBC) [Mass/Vol] 34.0 g/dL Normal 31.4-36.0 [facility] Comment on above: Performed By: #### 2 701059 #### [facility] [address] [place] [address] MCV (RBC) [Entitic vol] 83.9 fL Normal 80.0-100.0 [facility] Comment on above: Performed By: #### 2 672696 #### [facility] [address] [place] [address] Monocytes (Bld) [#/Vol] 0.6 E9/L Normal 0.2-1.0 [facility] Comment on above: Performed By: #### 2 146423 #### [facility] [address] [place] [address] Neutrophils (Bld) [#/Vol] 3.8 E9/L Normal 2.0-7.5 [facility] Comment on above: Performed By: #### 2 243999 #### [facility] [address] [place] [address] Neutrophils/100 WBC (Bld) 55.0 % Normal 36.0-75.0 [facility] Comment on above: Performed By: #### 2 913649 #### [facility] [address] [place] [address] Platelet 454.0 E9/L Normal 150.0-500. 0 [facility] Comment on above: Performed By: #### 2 062739 #### [facility] [address] [place] [address] Platelet mean volume (Bld) [Entitic vol] 7.5 fL Normal 6.4-10.8 [facility] Comment on above: Performed By: #### 2 239917 #### [facility] [address] [place] [address] RBC (Bld) [#/Vol] 4.4 E12/L Normal 4.3-5.9 [facility] Comment on above: Performed By: #### 2 221130 #### [facility] [address] [place] [address] WBC corrected for nucl RBC Auto (Bld) [#/Vol] 6.9 E9/L Normal 4.0-11.0 [facility] Comment on above: Performed By: #### 2 288628 #### [facility] [address] [place] [address] CHEMISTRYOrdered By: SYSTEM SYSTEM on 01-12-2024 Albumin [...] 01-12-2024 Albumin [Mass/Vol] 3.7 g/dL Normal 3.3-5.0 [facility] Comment on above: Performed By: #### 2 638486 #### [facility] [address] [place] [address] Albumin/Globulin (S) [Mass conc ratio] 1.0 Low 1.1-2.2 [facility] Comment on above: Performed By: #### 2 607890 #### [facility] [address] [place] [address] ALP [Catalytic activity/Vol] 49 Int._Unit/L Normal 21-98 [facility] Comment on above: Performed By: #### 2 695586 #### [facility] [address] [place] [address] ALT No additional P-5'-P [Catalytic activity/Vol] 12 Int._Unit/L Normal 6-46 [facility] Comment on above: Performed By: #### 2 166577 #### [facility] [address] [place] [address] Anion gap [Moles/Vol] 9 mmol/L Normal 6-16 [facility] Comment on above: Performed By: #### 2 053918 #### [facility] [address] [place] [address] AST [Catalytic activity/Vol] 12 Int._Unit/L Normal 5-43 [facility] Comment on above: Performed By: #### 2 722082 #### [facility] [address] [place] [address] Bilirubin [Mass/Vol] 0.3 mg/dL Normal 0.0-1.1 [facility] Comment on above: Performed By: #### 2 268404 #### [facility] [address] [place] [address] Calcium [Mass/Vol] 9.2 mg/dL Normal 8.9-11.1 [facility] Comment on above: Performed By: #### 2 872946 #### [facility] [address] [place] [address] Chloride [Moles/Vol] 105 mmol/L Normal 101-111 [facility] Comment on above: Performed By: #### 2 462241 #### [facility] [address] [place] [address] CO2 [Moles/Vol] 27 mmol/L Normal 21-31 [facility] Comment on above: Performed By: #### 2 474639 #### [facility] [address] [place] [address] Creatinine [Mass/Vol] 0.7 mg/dL Normal 0.5-1.3 [facility] Comment on above: Performed By: #### 2 322221 #### [facility] [address] [place] [address] Globulin (S) [Mass/Vol] 3.7 g/dL Normal 1.4-4.0 [facility] Comment on above: Performed By: #### 2 048810 #### [facility] [address] [place] [address] Glucose [Mass/Vol] 89 mg/dL Normal 55-199 [facility] Comment on above: Performed By: #### 2 770191 #### [facility] [address] [place] [address] Potassium [Moles/Vol] 3.7 mmol/L Normal 3.5-5.3 [facility] Comment on above: Performed By: #### 2 130962 #### [facility] [address] [place] [address] Protein [Mass/Vol] 7.4 g/dL Normal 6.0-7.8 [facility] Comment on above: Performed By: #### 2 586000 #### [facility] [address] [place] [address] Sodium [Moles/Vol] 137 mmol/L Normal 135-145 [facility] Comment on above: Performed By: #### 2 791160 #### [facility] [address] [place] [address] Urea nitrogen [Mass/Vol] 8 mg/dL Normal 5-21 [facility] Comment on above: Performed By: #### 2 834156 #### [facility] [address] [place] [address] Urea nitrogen/Creatinine [Mass ratio] 11 No Units Normal 10-20 [facility] Comment on above: Performed By: #### 2 172500 #### [facility] [address] [place] [address] Consent for Treatmenton 01-01 Consent for Treatment [id number] Normal [facility] Discharge Instructionson Discharge Instructions [id number]#1.00TIFF Normal [facility] ED Clinical Summaryon 2023 ED Clinical Summary (Inserted Image. Nida ble to display) [address] [address] ED Clinical Summary Person Information Name: ROSE MARY SCHNEIDER Divya Harris/New_Lenny Age: 18 Years : 2005 Sex: Female Language: Kazakh PCP: Fredi Ellington MD Marital Status: Single Phone: [phone] Visit Id: Visit Reason: Abdominal pain; ABDOMINAL [...] 01/12/2024 17:22:14 01/12/2024 17:22:14 01/12/2024 17:22:14 ADDRESS: [address] [place] [id number] PHYS DOC NOTES: MEDICAL INFORMATION: Prescriptions Given: New Medications [facility]/pharmacy #[id number], [address], [place] [phone], [phone] ondansetron (Zofran ODT 4 mg Tab-Dis) 1 [...] INFORMATION: Instructions: Full Liquid Diet; Nausea, Adult, Bonh-vt-Mkcf; Abdominal Pain, Adult, Jrop-db-Erpf Follow up: With: Address: When: Rakel MARCANO, [address] [address] In 3 days 01/15/2024 DIAGNOSIS: 1:Generalized abdominal pain; 2:Nausea; 3:Elevated lipase Normal [facility] ED Note-Nursingon 01-12-2024 ED Note-Nursing MARIE Morales at [facility] to discuss poc. Normal [facility] ED Patient Education Noteon 01-12-2024 ED Patient [...] Water. Coffee and tea (caffeinated or decaffeinated). [place]. Liquid nutritional supplements. Soft drinks. Nondairy milks, such as almond, coconut, rice, or soy milk. Sweets and desserts Custard. Pudding. Flavored gelatin. Smooth ice cream (without nuts or candy pieces). Sherbet. Frozen ice pops. [place] ice. Pudding pops. Seasonings and condiments Salt and pepper. Spices. Vinegar. Ketchup. Yellow mustard. Smooth sauces, such as Hollandaise, cheese sauce, or white sauce. Soy sauce. Syrup. Honey. Jelly (without fruit pieces). Other foods [place] powder. Cream soups. Strained soups. The items [...] This infor (more content not included)... Normal [facility] ED Patient Education Note Gastroenterology Nausea, Adult [...] ? Low-calorie sports drinks. ? Eat bland, sadr-hk-jlvnzp foods in small amounts as you are able, such as: ? Bananas. ? Applesauce. ? Rice. ? Low-fat (lean) meats. ? [place]. ? Crackers. ? Avoid drinking fluids that have a lot of sugar or caffeine in them. This includes energy drinks, sports drinks, and soda. ? Avoid alcohol. ? Avoid spicy or fatty foods. General instructions ? Take qyde-jle-prdjhms and prescription medicines only as told by [...] cannot use soap and water, use hand iron carrier. ? Make sure that everyone in your [...] drink what your doctor tells you. Take tvid-xzn-sqyizpa and prescription medicines only as told by [...] these instructions at home: Medicines ? Take fyty-oho-lxzeuje and prescription medicines only as told by [...] doctor if: (more content not included)... Normal [facility] ED Patient Summaryon 024 ED Patient Summary (Inserted Image. Nida ble to display) [address] [address] Patient Discharge Instructions Person Information Name: ROSE MARY SCHNEIDER Age: 18 Years Arrival Date: 01/12/2024 14:42:50 Discharge Diagnosis: 1:Generalized abdominal pain; 2:Nausea; 3:Elevated lipase Primary Care Physician: Fredi Ellington MD Provider Information Primary Provider: Radha Whipple DO [employer] Supervisor:Liss Schroeder PA-C The exam and treatment you received in the Emergency Department were for an urgent problem and are not intended as complete care. It is important that you follow up with a doctor, nurse practitioner, or physician?s sales assistant displays for ongoing care. If your symptoms become [...] With: Address: When: Fredi Ellington MD [address] [facility] [place] [address] In 3 days 01/15/2024 In the event that this physician does not participate in your insurance network, please consult with your insurance company to find a nearby participating provider. Patient Education Materials: Full Liquid Diet; Nausea, Adult, Nzto-db-Zeiy; Abdominal Pain, Adult, Klkb-jm-Grgg A MESSAGE TO ALL PATIENTS REGARDING OPIOIDS PRESCRIPTION OPIOIDS: WHAT YOU NEED TO KNOW Prescription opioids can be used to help relieve vjwiaauc-ud-ohimuq pain and are often prescribed following a [...] care professiona (more content not included)... Normal [facility] HEMATOLOGYOrdered By: SYSTEM SYSTEM on 01-12-2024 Basophils/100 [...] Lipase [Catalytic activity/Vol] 158 U/L High 13-58 [facility] Comment on above: Performed By: #### 2 [id number] #### [facility] [address] [place] [address] Prescriptions/Work Noteson 0 01-12-2024 Prescriptions/Work Notes [id number]#1.00TIFF Normal [facility] SEROLOGYOrdered By: Alisha Smart on 01-12-2024 HCG.beta subunit (U) [Moles/Vol] Negative Normal [facility] Man Sero U BetaHcg Qualon 01-12-2024 HCG.beta subunit (U) [Moles/Vol] Negative Normal [facility] Comment on above: Performed By: #### 2 [id number] #### [facility] [address] [place] [address] UA with Cult Rflxon 01-12-20 24 Bilirubin Ql (U) Negative Normal Negative [facility] Comment on above: Performed By: #### 4 [id number] #### [facility] [address] [place] [address] Clarity (U) Clear Normal Clear [facility] Comment on above: Performed By: #### 4 [id number] #### [facility] [address] [place] [address] Color (U) Light-Yellow Normal Yellow [facility] Comment on above: Result Comment: Micr oscopic readings are only performed on those samples that meet specific criteria set forth by [facility]. Performed By: #### 4 [id number] #### [facility] [address] [place] [address] Epithelial cells.squamous Auto (Urine sed) [#/Area] 3-4 Invalid Interpretation Code [facility] Comment on above: Performed By: #### 4 [id number] #### [facility] [address] [place] [address] Glucose Ql (U) Negative Normal Negative [facility] Comment on above: Performed By: #### 4 [id number] #### [facility] [address] [place] [address] Hemoglobin Auto test strip (U) [Mass/Vol] 2+ mg/dL Abnormal Negative [facility] Comment on above: Performed By: #### 4 [id number] #### [facility] [address] [place] [address] Ketones Auto test strip Ql (U) Negative Normal Negative [facility] Comment on above: Performed By: #### 4 [id number] #### [facility] [address] [place] [address] Leukocyte esterase Auto test strip Ql (U) Negative Normal Negative [facility] Comment on above: Performed By: #### 4 [id number] #### [facility] [address] [place] [address] Mucus Auto Ql (U) Trace Normal Negative [facility] Comment on above: Performed By: #### 4 [id number] #### [facility] [address] [place] [address] Nitrite Auto test strip Ql (U) Negative Normal Negative [facility] Comment on above: Performed By: #### 4 [id number] #### [facility] [address] [place] [address] pH (U) 6.5 [pH] Invalid Interpretation Code 5.0-9.0 [facility] Comment on above: Performed By: #### 4 [id number] #### [facility] [address] [place] [address] Protein Ql (U) Negative Normal Negative [facility] Comment on above: Performed By: #### 4 [id number] #### [facility] [address] [place] [address] RBC Ql (U) 0-3 Normal 0-3 [facility] Comment on above: Performed By: #### 4 [id number] #### [facility] [address] [place] [address] Specific gravity (U) [Rel density] 1.021 Invalid Interpretation Code 1.005-1.03 0 [facility] Comment on above: Performed By: #### 4 [id number] #### [facility] [address] [place] [address] Urobilinogen (U) [Mass/Vol] Negative Normal Negative [facility] Comment on above: Performed By: #### 4 [id number] #### [facility] [address] [place] [address] WBC Auto (Urine sed) [#/Area] 0-5 Normal 0-5 [facility] Comment on above: Performed By: #### 4 [id number] #### [facility] [address] [place] [address] Type of Urine collection method Random Urine Normal [facility] Comment on above: Performed By: #### 4 [id number] #### [facility] [address] [place] [address] URINALYSISOrdered By: SYSTEM SYSTEM on 01-12-2024 Bilirubin Ql (U) Negative Normal Negativemg /dL [facility] UA Auto SS Clarity (U) Clear (01/12/24 4:20 PM) Normal Clear [facility] UA Auto SS Color (U) Light-Yellow 1 (01/12/24 4:20 PM) Normal Yellow [facility] UA Auto SS Comment on above: Interpretive Data: M icroscopic readings are only performed on those samples that meet specific criteria set forth by [facility]. Epithelial cells.squamous Auto (Urine sed) [#/Area] [...] 01-12-2024 eGFR 128 mL/min/1.73 m2 Normal >=59 [facility] Comment on above: Order Comment: Order added by Discern Expert. Performed By: #### 1 [id number] #### [facility] [address] [place] [address] EEGon 05-23-2023 EEG This is a long-term continuous video electroencephalogram monitor performed on an 17-year-old female using standard 10/20 lead placement and a BonzerDarg system. All data were obtained digitally and [...] stimulation. Melecio Rubio M.D. ca Dictated: 05/15/2023 [id number] Typed: 05/15/2023 Normal [facility] Comment on above: Result Comment: Elec tronically Signed By: Ramiro MARCANO, Melecio\.br\Date and Time Signed: 05/23/23 08:20 EDT EEG This is a continuati on of the previous 24-hour recording. This is a continuous video electroencephalogram performed on an 17-year-old female using standard 10/20 lead placement and a CoverItLiveon-testhub system. All data were available for reformatting [...] required. Melecio Rubio M.D. nargis Dictated: 05/15/2023 [id number] Typed: 05/15/2023 [facility] Comment on above: Result Comment: [...] 42.81 While BMI may be coded from district attorney or nursing documentation, the weight-related diagnosis must [...] H please code as morbid obesity Normal [facility] Discharge Instructionson Discharge Instructions [id number]#1.00TIFF Normal [facility] Inpatient Clinical Summaryon 05-13-2023 Inpatient Clinical Summary [address] [address] Clinical Summary Person Information: Name: ROSE MARY SCHNEIDER Age: 17 Years : 2005 Sex: Female PCP: Fredi Ellington MD Marital Status: Single Phone: [phone] Race: White Ethnicity: Non- or Language: Kazakh Visit Id: Visit Reason: R56.9 Unspecified convulsions Speciality: Acuity: Enc Type: Inpatient Med Service: Neurology Clinic Arrival: 05/11/2023 07:26:33 Discharge: Dispo Type: Address: [address] [place] [id number] Provider Notes: Diagnosis: 1:Seizures; 2:History of gastroesophageal [...] Follow up: With: Address: When: Joann MACK [facility], [address] [place] [address] Business (1) Comments: Call for hospital followup appointment 2-3 weeks With: Address: When: Fredi Ellington [address] [facility], [place] [address] Business (1) Comments: Call for followup appointment Patient Education Information: Seizure, Adult Keppra Normal [facility] Inpatient Patient Summaryon 05-13-2023 Inpatient [...] Pending Diagnostic Test Results None Pharmacy Information [facility] Discharge Instructions NO DRIVING until cleared by neurology New Follow Up Appointments after Discharge Follow Up with Joann Zamorano When: Comments: Call for hospital followup appointment 2-3 weeks Where: [facility] [address] [place] [address]- Business (1) Follow Up with Fredi Ellington When: Comments: Call for followup appointment Where: [address] [facility] [place] [address]- Business (1) Medications What How Much When Instructions Next Dose Changed levetiracetam (Keppra 500 mg Tab) 1 Tablets By Mouth 2 times a day Pickup at [facility]/pharmacy #[id number] 10 9pm Unchanged APAP/ butalbital/ caffeine [...] (Protonix 40 mg tablet) Resume Pharmacy Information [facility]/pharmacy #[id number]: [address] [place], [place] [id number] [phone] Test Results CBC BMP WBC: 5.6 E9/L [...] ? Metabolic (more content not included)... Normal [facility] Inpatient Patient Summary [place] [id number] Patient Discharge Instructions PERSON INFORMATION Name: ROSE [...] Follow up: With: Address: When: Joann Zamorano [facility], [address] [place] [address] Business (1) Comments: Call for hospital followup appointment 2-3 weeks With: Address: When: Fredi Ellington [facility], [place] [address] [email or web address] (1) Comments: Call for followup appointment In [...] Medications to Continue Taking That Have Changed [facility]/pharmacy #[id number], [address] [place] [id number], [phone] START: levetiracetam (Keppra 500 mg Tab) 1 [...] 3 mg-10 (more content not included)... Normal [facility] Interdisciplinary Note - Binu e Manageron 05-13-2023 Interdisciplinary Note - Black Top Raker CRM entered the room to discuss dc planning. Pt is sleeping. Neuro following. ANt dc TBD. CRM to follow. Normal [facility] Comment on above: Result Comment: Elec tronically Signed By: Peyton Mccarty.hemant\Date and Time Signed: 05/13/23 09:22 EDT Monitor Recordon 05-13-2023 Monitor Record [id number]#1.00TIFF [facility] Monitor Record [id number]#1.00TIFF [facility] Progress Note-Physicianon Progress Note-Physician Basic Informatio n [...] sensation in all 4 extremities. Cerebellar exam: Lqvjwo-xe-vyts reveals no ataxia. Gait is normal. [4] [3] Lab Results Glucose Cap: 84 mg/dL (05/12/23 21:54:00) POC Device SN: [id number] (05/12/23 21:54:00) POC User ID: [id number] (05/12/23 21:54:00) POC Username: CARI NERY (05/12/23 [...] PRN ceti (more content not included)... Normal [facility] Comment on above: Result Comment: Elec tronically Signed By: Riya Tidwell RN\.br\Date and Time Signed: 05/13/23 09:16 EDT\.br\Electronically Co-Signed By: Melecio Rbuio MD\.br\Date and Time Co-Signed: 05/13/23 16:14 EDT [...] 05:50:00) Lymph Auto: 41.3 % (05/12/23 05:50:00) Peach Auto: 8.8 % (05/12/23 05:50:00) Eos Auto: 3.1 % (05/12/23 05:50:00) Basophil Auto: 0.4 % (05/12/23 05:50:00) Neutro Absolute: 2.6 E9/L (05/12/23 05:50:00) Lymph Absolute: 2.3 E9/L (05/12/23 05:50:00) Peach Absolute: 0.5 E9/L (05/12/23 05:50:00) Eos Absolute: [...] (05/12/23 05:50:0 (more content not included)... Normal [facility] Comment on above: Result Comment: Elec tronically Signed By: Alicia Sidhu\.br\Date and Time Signed: 05/12/23 15:34 EDT\.br\Electronically Co-Signed By: Akosua LR MD\.br\Date and Time Co-Signed: 05/13/23 07:06 EDT Auto Diffon 05-12-2023 Basophils/100 WBC (Bld) 0.4 % Normal 0.0-2.0 [facility] Comment on above: Order Comment: Order Added by Discern Expert. Performed By: #### 2 [id number], [id number] #### [facility] [address] [place] [id number] Basophils/Leukocytes Auto (Bld) [Pure # fraction] 0.0 E9/L Normal 0.0-0.2 [facility] Comment on above: Order Comment: Order Added by Discern Expert. Performed By: #### 2 [id number], [id number] #### [facility] [address] [place] [address] Eosinophils/100 WBC (Bld) 3.1 % Normal 0.0-8.0 [facility] Comment on above: Order Comment: Order Added by Discern Expert. Performed By: #### 2 252451, [id number] #### [facility] [address] [place] [address] Eosinophils/Leukocytes Auto (Bld) [Pure # fraction] 0.2 E9/L Normal 0.0-0.5 [facility] Comment on above: Order Comment: Order Added by Discern Expert. Performed By: #### 2 [id number], [id number] #### [facility] [address] [place] [address] Lymphocytes/100 WBC (Bld) 41.3 % Normal 14.0-50.0 [facility] Comment on above: Order Comment: Order Added by Discern Expert. Performed By: #### 2 080446, [id number] #### [facility] [address] [place] [address] Lymphocytes/Leukocytes Auto (Bld) [Pure # fraction] 2.3 E9/L Normal 1.0-4.0 [facility] Comment on above: Order Comment: Order Added by Discern Expert. Performed By: #### 2 576511, [id number] #### [facility] [address] [place] [address] Monocytes/100 WBC (Bld) 8.8 % Normal 4.0-14.0 [facility] Comment on above: Order Comment: Order Added by Discern Expert. Performed By: #### 2 000992, [id number] #### [facility] [address] [place] [address] Monocytes/Leukocytes Auto (Bld) [Pure # fraction] 0.5 E9/L Normal 0.2-1.0 [facility] Comment on above: Order Comment: Order Added by Discern Expert. Performed By: #### 2 983867, [id number] #### [facility] [address] [place] [address] Neutrophils/100 WBC (Bld) 46.4 % Normal 36.0-75.0 [facility] Comment on above: Order Comment: Order Added by Discern Expert. Performed By: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 [facility] Comment on above: Order Comment: per tejas Brito wants us to wait till 0800 to draw labs [id number] 03/09/2023 06:41:32 EDT Performed By: #### 2 805539, 6556173 #### [facility] [address] [place] [address] CO2 [Moles/Vol] 24 mmol/L Normal 21-31 [facility] Comment on above: Order Comment: per tejas Brito wants us to wait till 0800 to draw labs [id number] 03/09/2023 06:41:32 EDT Performed By: #### 2 931936, 8673070 #### [facility] [address] [place] [address] Creatinine [Mass/Vol] 0.7 mg/dL Normal 0.5-1.3 [facility] Comment on above: Order Comment: per tejas Brito wants us to wait till 0800 to draw labs [id number] 03/09/2023 06:41:32 EDT Performed By: #### 2 995365, 8568951 #### [facility] [address] [place] [address] Globulin (S) [Mass/Vol] 4.0 g/dL Normal 1.4-4.0 [facility] Comment on above: Order Comment: per tejas Kauffman RN Alisha wants us to wait till 0800 to draw labs [id number] 03/09/2023 06:41:32 EDT Performed By: #### 2 840668, 5612467 #### [facility] [address] [place] [address] Glucose [Mass/Vol] 93 mg/dL Normal 55-199 [facility] Comment on above: Order Comment: per tejas Kauffman RN Alisha wants us to wait till 0800 to draw labs [id number] 03/09/2023 06:41:32 EDT Result Comment: If t his glucose result represents a fasting glucose, interpretation should refer to the following reference range: 55-99 mg/dL Performed By: #### 2 904599, [id number] #### [facility] [address] [place] [address] Potassium [Moles/Vol] 4.0 mmol/L Normal 3.5-5.3 [facility] Comment on above: Order Comment: per tejas Kauffman RN Alisha wants us to wait till 0800 to draw labs [id number] 03/09/2023 06:41:32 EDT Performed By: #### 2 600145, 3665664 #### [facility] [address] [place] [address] Protein [Mass/Vol] 7.1 g/dL Normal 6.0-7.8 [facility] Comment on above: Order Comment: per tejas Kauffman RN Alisha wants us to wait till 0800 to draw labs [id number] 03/09/2023 06:41:32 EDT Performed By: #### 2 529984, 0791002 #### [facility] [address] [place] [address] Sodium [Moles/Vol] 137 mmol/L Normal 135-145 [facility] Comment on above: Order Comment: per tejas Brito wants us to wait till 0800 to draw labs [id number] 03/09/2023 06:41:32 EDT Performed By: #### 2 510857, 9116988 #### [facility] [address] [place] [address] Urea nitrogen [Mass/Vol] 11 mg/dL Normal 5-21 [facility] Comment on above: Order Comment: per tejas Brito wants us to wait till 0800 to draw labs [id number] 03/09/2023 06:41:32 EDT Performed By: #### 2 717934, 7417596 #### [facility] [address] [place] [address] Urea nitrogen/Creatinine [Mass ratio] 16 No Units Normal 10-20 [facility] Comment on above: Order Comment: per tejas Brito wants us to wait till 0800 to draw labs [id number] 03/09/2023 06:41:32 EDT Performed By: #### 2 453118, 5676978 #### [facility] [address] [place] [address] COAGULATIONOrdered By: Chepe Ragland on 03-09-2023 INR [...] Preliminary By: Justice Browne MD 03/07/2023 15:05:51 Title Attorney has Agreed this ED Review [facility] Insurance Correspondence Off ice03-09-2023 Insurance Correspondence Office [id number]#[id number]:1 27 [facility] Interdisciplinary Note - Binu e Manageron 03-09-2023 Interdisciplinary Note - Black Top Raker Pt is in bed sleeping. According to juwan, pt has not been having SI. Dr Reveles will assess for need of [place] slip and MHP. Nursing will have to call MHP if needed. Pending SW and Neurology. ANt dc TBD. CRM to follow. [facility] Comment on above: Result Comment: Elec tronically Signed By: Peyton Mccarty.hemant\Date and Time Signed: 03/09/23 09:25 EDT Interdisciplinary Note - Mayra singon 03-09-2023 Interdisciplinary Note - Nursing 1405 spoke with [facility] hotline. they requested chart be faxed to them. 1420 chart and pink slip faxed to [facility]. 1436 original fax did not go through. refaxed at this time. 1500 fax did not go trough. re attempted. [facility] Interdisciplinary Note - Soc ial Workeron 03-09-2023 Interdisciplinary Note - Dot Compliance Specialist Consult received by SW regarding an intentional acetaminophen overdose / SI . Awaiting MHP consult. SW will follow [facility]'s plan moving forward. [facility] Monitor Recordon 03-09-2023 Monitor Record [id number]#1.00CD:1 27 [facility] Monitor Record [id number]#1.00CD:1 27 [facility] Monitor Record [id number]#1.00CD:1 27 [facility] PTon 03-09-2023 INR Coag (PPP) [Relative time] 1.0 {INR} Invalid Interpretation Code [facility] Comment on above: Result Comment: INR results are specifically intended to assess patients stabilized on long-term Anticoagulation therapy suggested INR?s ?Less Intensive Anticoagulation? 2.0 ? 3.0 Conventional Range 3.0 ? 4.5 Performed By: #### 2 270838, 9990052 #### [facility] [address] [place] [address] PT Coag (PPP) [Time] 10.6 second(s) Normal 9.4-12.5 [facility] Comment on above: Result Comment: [...] no normal ranges. Performed By: #### 2 476619, [id number] #### [facility] [address] [place] [address] Progress Note-Nurseon 2022 Progress Note-Nurse Dr. Eamon marie via [employer]. Patient has PT and CMP 8 at 0600. Physician notified of current lab orders and no further orders received at this time. [facility] Progress Note-Nurse Patient is afebrile, VS as documented, and patient in no distress. She denies pain, gi upset, and distress. Safety maintained and supervision continued. [facility] Progress Note-Physicianon Progress Note-Physician Subjective Doing well [...] (E66.9: Obesi (more content not included)... [facility] Comment on above: Result Comment: Elec tronically Signed By: Lawrence Reveles DO.br\Date and Time Signed: 03/09/23 14:30 EDT eGFRon 03-09-2023 GFR/1.73 sq M.predicted among non-blacks MDRD (S/P/Bld) [Vol rate/Area] 128 mL/min/1.73 m2 Normal >=59 [facility] Comment on above: Order Comment: Order added by Discern Expert. Result Comment: Radiological Defense Officer marleny kidney disease could be indicated at eGFR's of less than 60 mL/min/1.73m2. Kidney failure is indicated at less than 15 mL/min/1.73m2. Performed By: #### 2 907974, 6244907 #### [facility] [address] [place] [address] Acetamnphn Lvlon 03-08-2023 Acetaminophen [Mass/Vol] ug/mL Low 15-30 [facility] Comment on above: Performed By: #### 2 777634, 8242975 #### [facility] [address] [place] [address] Acetaminophen [Mass/Vol] 10 microgram/mL Low 15-30 [facility] Comment on above: Performed By: #### 2 461347, 9021336 #### [facility] [address] [place] [address] BMPon 03-08-2023 Anion gap [Moles/Vol] 13 mmol/L Normal 6-16 [facility] Comment on above: Performed By: #### 2 307312, 9775425, 3197584, 65773206, 81878727 ####[facility] [address] [place] [address] Calcium [Mass/Vol] 9.1 mg/dL Normal 8.9-11.1 [facility] Comment on above: Performed By: #### 2 507426, 7866184, 0849850, 28298363, 47271620 ####[facility] [address] [place] [address] Chloride [Moles/Vol] 105 mmol/L Normal 101-111 [facility] Comment on above: Performed By: #### 2 882512, 7080452, 4658309, 65244343, 03063828 ####[facility] [address] [place] [address] CO2 [Moles/Vol] 23 mmol/L Normal 21-31 [facility] Comment on above: Performed By: #### 2 471533, 3293393, 7763170, 14961414, 69584468 ####[facility] [address] [place] [address] Creatinine [Mass/Vol] 0.8 mg/dL Normal 0.5-1.3 [facility] Comment on above: Performed By: #### 2 150566, 6863741, 4275285, 53778465, 67585059 ####[facility] [address] [place] [address] Glucose [Mass/Vol] 103 mg/dL Normal 55-199 [facility] Comment on above: Result Comment: If t his glucose result represents a fasting glucose, interpretation should refer to the following reference range: 55-99 mg/dL Performed By: #### 2 099649, 5252162, 6879856, 31838189, 19972942 ####[facility] [address] [place] [address] Potassium [Moles/Vol] 3.3 mmol/L Low 3.5-5.3 [facility] Comment on above: Performed By: #### 2 078689, 9151987, 2494357, 51709120, 13696013 ####[facility] [address] [place] [address] Sodium [Moles/Vol] 138 mmol/L Normal 135-145 [facility] Comment on above: Performed By: #### 2 077429, 9729480, 5952226, 42743228, 90294552 ####[facility] [address] [place] [address] Urea nitrogen [Mass/Vol] 7 mg/dL Normal 5-21 [facility] Comment on above: Performed By: #### 2 970271, 7353931, 1362748, 83077839, 09760385 ####[facility] [address] [place] [address] Urea nitrogen/Creatinine [Mass ratio] 9 No Units Low 10-20 [facility] Comment on above: Performed By: #### 2 965061, 6263194, 7364302, 24543546, 47545307 ####[facility] [address] [place] [address] CHEMISTRYOrdered By: SYSTEM SYSTEM on 03-08-2023 Albumin [...] ons in the Hospital Yes Patient Normal [facility] Hep Func Panelon 03-08-2023 Bilirubin.indirect [Mass or moles/Vol] UTC Abnormal 0.1-0.9 [facility] Comment on above: Result Comment: Resu lt verified by Discern Rule. Performed result UTC (Unable to Calculate) was sent as an Alpha code due the inability to calculate a valid numeric value. Performed By: #### 2 295504 #### [facility] [address] [place] [address] Albumin [Mass/Vol] 3.0 g/dL Low 3.3-5.0 [facility] Comment on above: Performed By: #### 2 520954 #### [facility] [address] [place] [address] Albumin/Globulin (S) [Mass conc ratio] 0.7 Low 1.1-2.2 [facility] Comment on above: Performed By: #### 2 904884 #### [facility] [address] [place] [address] ALP [Catalytic activity/Vol] 46 Int._Unit/L Normal 21-98 [facility] Comment on above: Performed By: #### 2 184468 #### [facility] [address] [place] [address] ALT No additional P-5'-P [Catalytic activity/Vol] 14 Int._Unit/L Normal 6-46 [facility] Comment on above: Performed By: #### 2 177111 #### [facility] [address] [place] [address] AST [Catalytic activity/Vol] 17 Int._Unit/L Normal 5-43 [facility] Comment on above: Performed By: #### 2 511001 #### Main [facility] [address] [place] [address] Bilirubin [Mass/Vol] 0.3 mg/dL Normal 0.0-1.1 [facility] Comment on above: Performed By: #### 2 245713 #### [facility] [address] [place] [address] Globulin (S) [Mass/Vol] 4.2 g/dL High 1.4-4.0 [facility] Comment on above: Performed By: #### 2 891151 #### [facility] [address] [place] [address] Protein [Mass/Vol] 7.2 g/dL Normal 6.0-7.8 [facility] Comment on above: Performed By: #### 2 085268 #### [facility] [address] [place] [address] Bilirubin.direct [Mass/Vol] mg/dL Normal 0.1-0.4 [facility] Comment on above: Performed By: #### 2 952706 #### [facility] [address] [place] [address] Bilirubin.indirect [Mass or moles/Vol] UTC Abnormal 0.1-0.9 [facility] Comment on above: Result Comment: Resu lt verified by Discern Rule. Performed result UTC (Unable to Calculate) was sent as an Alpha code due the inability to calculate a valid numeric value. Performed By: #### 2 183915, 7861323, 4519602, 08377740, 49318982 ####[facility] [address] [place] [address] Albumin [Mass/Vol] 3.0 g/dL Low 3.3-5.0 [facility] Comment on above: Performed By: #### 2 550270, 6108279, 3077036, 08238349, 19743829 ####[facility] [address] [place] [address] Albumin/Globulin (S) [Mass conc ratio] 0.7 Low 1.1-2.2 [facility] Comment on above: Performed By: #### 2 766979, 0462098, 6895067, 10339406, 59703989 ####[facility] [address] [place] [address] ALP [Catalytic activity/Vol] 42 Int._Unit/L Normal 21-98 [facility] Comment on above: Performed By: #### 2 384286, 8602281, 0800386, 59076325, 60016689 ####[facility] [address] [place] [address] ALT No additional P-5'-P [Catalytic activity/Vol] 12 Int._Unit/L Normal 6-46 [facility] Comment on above: Performed By: #### 2 971432, 3537748, 0386883, 48604022, 88617989 ####[facility] [address] [place] [address] AST [Catalytic activity/Vol] 13 Int._Unit/L Normal 5-43 [facility] Comment on above: Performed By: #### 2 104617, 6772968, 6320453, 24042234, 85247318 ####[facility] [address] [place] [address] Bilirubin [Mass/Vol] 0.4 mg/dL Normal 0.0-1.1 [facility] Comment on above: Performed By: #### 2 600097, 8097799, 0619287, 24829270, 95743017 ####[facility] [address] [place] [address] Globulin (S) [Mass/Vol] 4.2 g/dL High 1.4-4.0 [facility] Comment on above: Performed By: #### 2 169325, 0583178, 0126176, 35179329, 19042084 ####[facility] [address] [place] [address] Protein [Mass/Vol] 7.2 g/dL Normal 6.0-7.8 [facility] Comment on above: Performed By: #### 2 073855, 3400606, 1771996, 40981847, 02097221 ####[facility] [address] [place] [address] Bilirubin.direct [Mass/Vol] mg/dL Normal 0.1-0.4 [facility] Comment on above: Performed By: #### 2 667187, 9356516, 6197712, 41154659, 92191942 ####[facility] [address] [place] [address] Bilirubin.indirect [Mass or moles/Vol] UTC Abnormal 0.1-0.9 [facility] Comment on above: Result Comment: Resu lt verified by Discern Rule. Performed result UTC (Unable to Calculate) was sent as an Alpha code due the inability to calculate a valid numeric value. Performed By: #### 2 394711, 3592283 #### [facility] [address] [place] [address] Albumin [Mass/Vol] 2.9 g/dL Low 3.3-5.0 [facility] Comment on above: Performed By: #### 2 013451, 6541680 #### [facility] [address] [place] [address] Albumin/Globulin (S) [Mass conc ratio] 0.7 Low 1.1-2.2 [facility] Comment on above: Performed By: #### 2 834051, 6658527 #### [facility] [address] [place] [address] ALP [Catalytic activity/Vol] 40 Int._Unit/L Normal 21-98 [facility] Comment on above: Performed By: #### 2 719895, 9084885 #### [facility] [address] [place] [address] ALT No additional P-5'-P [Catalytic activity/Vol] 11 Int._Unit/L Normal 6-46 [facility] Comment on above: Performed By: #### 2 217399, 3299400 #### [facility] [address] [place] [address] AST [Catalytic activity/Vol] 16 Int._Unit/L Normal 5-43 [facility] Comment on above: Performed By: #### 2 165485, 6914150 #### [facility] [address] [place] [address] Bilirubin [Mass/Vol] 0.3 mg/dL Normal 0.0-1.1 [facility] Comment on above: Performed By: #### 2 795083, 9211975 #### [facility] [address] [place] [address] Globulin (S) [Mass/Vol] 4.0 g/dL Normal 1.4-4.0 [facility] Comment on above: Performed By: #### 2 238980, 0211663 #### [facility] [address] [place] [address] Protein [Mass/Vol] 6.9 g/dL Normal 6.0-7.8 [facility] Comment on above: Performed By: #### 2 834361, 9568289 #### [facility] [address] [place] [address] Bilirubin.direct [Mass/Vol] mg/dL Normal 0.1-0.4 [facility] Comment on above: Performed By: #### 2 852753, 4111831 #### [facility] [address] [place] [address] Interdisciplinary Note - Binu e Manageron 03-08-2023 Interdisciplinary Note - Black Top Raker CRM spoke with patient and mother in [...] has a sitter in the room. Normal [facility] Comment on above: Result Comment: Elec tronically Signed By: Don RN, Antoinette\.br\Date and Time Signed: 03/08/23 12:53 EDT Monitor Recordon 03-08-2023 Monitor Record [id number]#1.00CD:1 27 Normal [facility] Monitor Record [id number]#1.00CD:1 27 Normal [facility] Monitor Record [id number]#1.00CD:1 27 Normal [facility] PT & PTTon 03-08-2023 aPTT Coag (PPP) [Time] 32.2 second(s) Normal 25.1-36.5 [facility] Comment on above: Result Comment: Para meter [...] - 109.0 sec. Performed By: #### 2 442947, 9146146, 0599967, 09735461, 45865270 ####[facility] [address] [place] [address] INR Coag (PPP) [Relative time] 1.1 {INR} Invalid Interpretation Code [facility] Comment on above: Result Comment: INR results are specifically intended to assess patients stabilized on long-term Anticoagulation therapy suggested INR?s ?Less Intensive Anticoagulation? 2.0 ? 3.0 Conventional Range 3.0 ? 4.5 Performed By: #### 2 299218, 1722494, 0280225, 06027204, 55026590 ####[facility] [address] [place] [address] PT Coag (PPP) [Time] 12.1 second(s) Normal 9.4-12.5 [facility] Comment on above: Result Comment: [...] no normal ranges. Performed By: #### 2 403037, 2334911, 3989927, 82936840, 83150807 ####[facility] [address] [place] [address] Progress Note-Nurseon 2022 Progress Note-Nurse Patient assisted to BSC and voids a small amount of clear yellow urine. Patient also ate a 6 inch sub and tolerated it well. She denies GI upset and tolerated it well. Observation continued and safety maintained. Normal [facility] Progress Note-Nurse Report taken and bed side [...] Seizure pads intact and safety maintained. Normal [facility] Progress Note-Nurse 1340: This RN contac gamaliel [...] will remain on regular nursing floor. Normal [facility] Progress Note-Physicianon Progress Note-Physician Assessment/Plan 17-year-old female [...] overdose with Tylenol/diphenhydramine.? Secondary to suicide ideation/attempt. telephone sex worker evaluation. Acetaminophen level ekta to 40 but trended down to undetectable. Treating with IVF Thursday. LFTs within normal limit. Repeat LFTs and PT/INR in AM. Ordered: Basic Metabolic Panel Comprehensive Metabolic Panel Consult to Product Design Engineer eGFR Extra Lav Tube Hepatic Function Panel PT [facility] Hospital Care/Day Moderate 35 Minutes 84235 2. Suicidal ideation (R45.851: Suicidal ideations) Supportive care. telephone sex worker evaluation. Mental health evaluation in a.m. once medically stable. Ordered: Consult to Product Design Engineer [facility] Hospital Care/Day Moderate 35 Minutes 90785 3. Antihistamines overdose (T45.0X1A: Poisoning by antiallergic and antiemetic drugs, accidental (unintentional), initial encounter) Treated with charcoal. Respiratory status and circulation currently stable. Treated with IV fluid. Bladder scan?so far not retaining urine. Ordered: [facility] Hospital Care/Day Moderate 35 Minutes 14173 4. Hypokalemia (E87.6: Hypokalemia) Secondary to gastrointestinal loss and IV fluid. We will replace orally. Ordered: potassium chloride, 40 mEq = 2 tab(s), Tab-ER, Oral, BID for 2 dose(s), Stop date 03/09/23 8:59:00 EDT, Routine, Start date 03/08/23 9:00:00 EDT, 03/08/23 8:36:00 EDT Comprehensive Metabolic Panel [facility] Hospital Care/Day Moderate 35 Minutes 12968 5. Depression (F32.A: Depression, unspecified) On fluoxetine. Ordered: [facility] Hospital Care/Day Moderate 35 Minutes 50555 6. Seizure (R56.9: Unspecified convulsions) No reported seizure. On Lamictal and Keppra. Ordered: lorazepam, 1 mg = 0.5 mL, Injection, IV Push, QID PRN Seizure, Routine, Start date 03/07/23 18:04:00 EDT 7. Obesity (E66.9: Obesity, unspecified) Recommend therapeutic lifestyle modification changes. 8. On deep vein thrombosis (DVT) prophylaxis (Z79.899: Other longwall shearer operator (current) drug therapy) SCDs. Disposition: Pending mental health evaluation in AM. I discussed the diagnosis and plan of care with the patient at the bedside. Moderate level of MDM based on addressing above issues. This documentation was transcribed using voice recognition software. Several attempts were made to ensure accuracy. However inadvertent computerized rollway man errors may be present. Jennifer Retana. Hospitalist. [...] -- charco (more content not included)... Normal [facility] Comment on above: Result Comment: Elec tronically Signed By: DEBBIE MARCANO, Jennifer\.br\Date and Time Signed: 03/08/23 08:38 EDT Reference Laboratory Testing Ordered By: Mick DomainUser on 03-08-2023 lamoTRIgine [Mass/Vol] microgram/mL Low 2.0-2 0.0mc g/mL [facility] Comment on above: Result Comment: Dete ction Limit = 1.0 Performed at: [facility] [id number] MD Jose Armando Feliz levETIRAcetam [Mass/Vol] 12.4 microgram/mL Invalid Interpretation Code 10.0-40.0m cg/mL [facility] Comment on above: Result Comment: Perf ormed at: [facility] [address] [id number] MD Jose Armando Feliz eGFRon 03-08-2023 GFR/1.73 sq M.predicted among non-blacks MDRD (S/P/Bld) [Vol rate/Area] 109 mL/min/1.73 m2 Normal >=59 [facility] Comment on above: Order Comment: Order added by Discern Expert. Result Comment: Radiological Defense Officer marleny kidney disease could be indicated at eGFR's of less than 60 mL/min/1.73m2. Kidney failure is indicated at less than 15 mL/min/1.73m2. Performed By: #### 2 792846, 1875116, 8957761, 08039833, 27470103 ####[facility] [address] [place] [address] Acetamnphn Lvlon 03-07-2023 Acetaminophen [Mass/Vol] 40 microgram/mL Abnormal 15-30 [facility] Comment on above: Result Comment: Crit ical Result verified by repeat analysis\Critical Result S_ACTM:40.1 Called to ALLEN ZENG AT by SANIYA NEWBY And Read Back For Confirmation at: 03/07/2023 18:17:47 Performed By: #### 2 484999, 4532871 #### [facility] [address] [place] [address] Acetaminophen [Mass/Vol] 35 microgram/mL High 15-30 [facility] Comment on above: Performed By: #### 1 5192848, 8874042, 2996048, 1911628, 07801423, 0665151, 0649201, 2789155, 2622039 #### [facility] [address] [place] [address] Auto Diffon 03-07-2023 Basophils/100 WBC (Bld) 0.5 % Normal 0.0-2.0 [facility] Comment on above: Order Comment: Order Added by Discern Expert. Performed By: #### 1 8633570, 5677906, 7531318, 1020463, 87970967, 1025479, 2510757, 2752859, 2141904 ####[facility] [address] [place] [address] Basophils/Leukocytes Auto (Bld) [Pure # fraction] 0.0 E9/L Normal 0.0-0.2 [facility] Comment on above: Order Comment: Order Added by Discern Expert. Performed By: #### 1 6376984, 9674329, 7302172, 6201504, 88621650, 6002017, 0662288, 6298994, 2320856 ####[facility] [address] [place] [address] Eosinophils/100 WBC (Bld) 1.9 % Normal 0.0-8.0 [facility] Comment on above: Order Comment: Order Added by Discern Expert. Performed By: #### 1 7415620, 8582785, 6256620, 3680809, 30291305, 3498299, 1246653, 7435901, 6538573 ####[facility] [address] [place] [address] Eosinophils/Leukocytes Auto (Bld) [Pure # fraction] 0.1 E9/L Normal 0.0-0.5 [facility] Comment on above: Order Comment: Order Added by Discern Expert. Performed By: #### 1 2693387, 0575518, 4974250, 0016268, 60686852, 3445486, 5621613, 4581121, 3403124 ####[address] [place] [address] Lymphocytes/100 WBC (Bld) 28.7 % Normal 14.0-50.0 [facility] Comment on above: Order Comment: Order Added by Discern Expert. Performed By: #### 1 5766784, 5739709, 1050140, 5636840, 89551988, 5642125, 6114142, 0703550, 8894540 ####[address] [place] [address] Lymphocytes/Leukocytes Auto (Bld) [Pure # fraction] 2.0 E9/L Normal 1.0-4.0 [facility] Comment on above: Order Comment: Order Added by Discern Expert. Performed By: #### 1 9473046, 4323753, 4309537, 3182757, 82146512, 1672207, 7376378, 3038931, 5149181 ####[address] [place] [address] Monocytes/100 WBC (Bld) 8.6 % Normal 4.0-14.0 [facility] Comment on above: Order Comment: Order Added by Discern Expert. Performed By: #### 1 0881765, 5577065, 7046202, 9075192, 94771341, 7045735, 8265505, 1576445, 5485597 ####[address] [place] [address] Monocytes/Leukocytes Auto (Bld) [Pure # fraction] 0.6 E9/L Normal 0.2-1.0 [facility] Comment on above: Order Comment: Order Added by Samantha Expert. Performed By: #### 1 6516810, 1951858, 2875088, 2455422, 76755985, 7270641, 3594740, 2525551, 0294406 ####[facility] [address] [place] [address] Neutrophils/100 WBC (Bld) 60.3 % Normal 36.0-75.0 [facility] Comment on above: Order Comment: Order Added by Discern Expert. Performed By: #### 1 5081871, 8697286, 9819224, 3355438, 96585033, 5481195, 0021213, 9373281, 8359226 ####[facility] [address] [place] [address] Neutrophils/Leukocytes Auto (Bld) [Pure # fraction] 4.1 E9/L Normal 2.0-7.5 [facility] Comment on above: Order Comment: Order Added by Discern Expert. Performed By: #### 1 6050150, 8481157, 2140622, 1082612, 80603233, 3898439, 5135231, 1703748, 1683221 ####[address] [address] B hCG Qualon 03-07-2023 Beta hCG Ql Negative Normal [facility] Comment on above: Performed By: #### 1 2238898, 4749444, 1829772, 6469049, 79738070, 4960915, 5667538, 1623501, 1719396 ####[facility] [address] [place] [address] BMPon 03-07-2023 Creatinine [Mass/Vol] 0.9 mg/dL Normal 0.5-1.3 [facility] Comment on above: Performed By: #### 1 7363841, 4484225, 6716860, 3567895, 67452122, 2298387, 7383739, 0595676, 6414079 ####[address] [place] [address] Urea nitrogen [Mass/Vol] 9 mg/dL Normal 5-21 [facility] Comment on above: Performed By: #### 1 7923693, 0200254, 4996602, 5071235, 73762958, 9131570, 3866399, 3215418, 4936437 ####[facility] [address] [place] [address] Urea nitrogen/Creatinine [Mass ratio] 10 No Units Normal 10-20 [facility] Comment on above: Performed By: #### 1 0456564, 1911284, 3882516, 9368798, 59997465, 8245641, 1699440, 3281571, 2214797 ####[facility] [address] [place] [address] Anion gap [Moles/Vol] 14 mmol/L Normal 6-16 [facility] Comment on above: Performed By: #### 1 8110854, 9794287, 1222842, 9557321, 55734976, 7086751, 6870460, 1793534, 6487885 ####[facility] [address] [place] [address] Calcium [Mass/Vol] 9.4 mg/dL Normal 8.9-11.1 [facility] Comment on above: Performed By: #### 1 6814496, 5898576, 3334995, 8554640, 44801254, 7520655, 6946918, 0356276, 7391605 ####[facility] [address] [place] [address] Chloride [Moles/Vol] 103 mmol/L Normal 101-111 [facility] Comment on above: Performed By: #### 1 0360104, 1656328, 5007753, 0341106, 13143622, 7747010, 3171683, 4079732, 2965030 ####[facility] [address] [place] [address] CO2 [Moles/Vol] 24 mmol/L Normal 21-31 [facility] Comment on above: Performed By: #### 1 7860046, 5988051, 4528789, 8311559, 06979779, 3656404, 0436920, 1150577, 5364599 ####[facility] [address] [place] [address] Glucose [Mass/Vol] 95 mg/dL Normal 55-199 [facility] Comment on above: Result Comment: If t his glucose result represents a fasting glucose, interpretation should refer to the following reference range: 55-99 mg/dL Performed By: #### 1 6268858, 6907951, 2824473, 1645884, 63106218, 4693595, 6330574, 2667103, 7512329 ####[facility] [address] [place] [address] Potassium [Moles/Vol] 3.6 mmol/L Normal 3.5-5.3 [facility] Comment on above: Performed By: #### 1 0230305, 3067655, 1718299, 6315794, 57875164, 2402415, 2266481, 9561454, 9292177 ####[facility] [address] [place] [address] Sodium [Moles/Vol] 137 mmol/L Normal 135-145 [facility] Comment on above: Performed By: #### 1 8663434, 3499236, 5827254, 2628957, 32640029, 5944586, 1797342, 9050021, 8522448 ####[facility] [address] [place] [address] CBC w/ Auto Diffon 3 Erythrocyte distribution width (RBC) [Ratio] 14.0 % Normal 10.9-14.2 [facility] Comment on above: Performed By: #### 1 7444854, 2210982, 1124225, 9108137, 60293497, 6005906, 3048996, 3718929, 0234016 ####[facility] [address] [place] [address] Hematocrit (Bld) [Volume fraction] 37.9 % Normal 34.0-46.0 [facility] Comment on above: Performed By: #### 1 7200472, 1310140, 6111234, 7231876, 92120764, 0383199, 4316637, 9485907, 4363335 ####[facility] [address] [place] [address] Hemoglobin (Bld) [Mass/Vol] 12.6 g/dL Normal 12.0-16.0 [facility] Comment on above: Performed By: #### 1 5980347, 6116044, 7838535, 8851031, 21311683, 3478150, 4507574, 7126716, 3745624 ####[facility] [address] [place] [address] MCH (RBC) [Entitic mass] 28.0 pg Normal 27.0-34.0 [facility] Comment on above: Performed By: #### 1 4643981, 9784592, 0645375, 6831213, 59642856, 5167429, 1345705, 1993991, 8570640 ####[address] [place] [address] MCHC (RBC) [Mass/Vol] 33.3 g/dL Normal 31.4-36.0 [facility] Comment on above: Performed By: #### 1 4862316, 7088437, 4131947, 3583442, 78449206, 6066280, 8071820, 7610398, 9028497 ####[address] [address] MCV (RBC) [Entitic vol] 84.0 fL Normal 80.0-100.0 [facility] Comment on above: Performed By: #### 1 9780641, 7343901, 4050549, 1648833, 87192489, 6756434, 0326303, 2766152, 7874403 ####[address] [place] [address] Platelet mean volume (Bld) [Entitic vol] 7.9 fL Normal 6.4-10.8 [facility] Comment on above: Performed By: #### 1 0345557, 3443481, 4365965, 5649587, 41511223, 7267665, 0640710, 9613483, 2244337 ####[address] [address] Platelets (Bld) [#/Vol] 442.0 E9/L Normal 150. 0-500. 0 [facility] Comment on above: Performed By: #### 1 6346431, 8734338, 4756940, 6461401, 65216013, 6937382, 7399262, 5021853, 0392525 ####[facility] [address] [place] [address] RBC (Bld) [#/Vol] 4.5 E12/L Normal 4.3-5.9 [facility] Comment on above: Performed By: #### 1 0226688, 2539324, 8948288, 6833662, 47438240, 2670087, 1291963, 6596148, 2889087 ####[facility] [address] [place] [address] WBC corrected for nucl RBC Auto (Bld) [#/Vol] 6.8 E9/L Normal 4.0-11.0 [facility] Comment on above: Performed By: #### 1 0276275, 8538402, 5230238, 6839697, 91720732, 1735311, 3532838, 9767614, 1987185 ####[facility] [address] [place] [id number] CHEMISTRYOrdered By: Debby Cleveland on 03-07-2023 Acetaminophen [...] Consent for Treatmenton 0 Consent for Treatment [id number]:12 7 Normal [facility] ED Clinical Summaryon 2022 ED Clinical Summary (Inserted Image. Nida ble to display) [place] [id number] ED Clinical Summary Person Information Name: ROSE MARY SCHNEIDER/New_Lenny Age: 17 Years : 2005 Sex: Female Language: Kazakh PCP: Fredi Ellington MD Marital Status: Single Phone: [phone] Visit Id: Visit Reason: Suicidal ideation; Intentional ingestion - overdose; SUICIDAL IDEATION Speciality: Acuity: 1 Enc Type: Observation Med Service: Emergency Arrival: 03/07/2023 14:06:45 Discharge: LOS: 000 04:36 Checkin: 03/07/2023 14:06:45 Checkout: 03/07/2023 18:42:28 Dispo Type: Admitted as IP to this [facility] EVENTS: Event Name Event [...] 18:42:28 03/07/2023 18:42:28 03/07/2023 18:42:28 ADDRESS: [address] [place] [id number] PHYS DOC NOTES: MEDICAL INFORMATION: Prescriptions Given: [...] 6:Obesity; 7:On deep vein thrombosis (DVT) prophylaxis [facility] ED Note-Physicianon 03-07-20 ED Note-Physician [...] Oral Susp 240 mL, 50 gm, Oral Qhfkyq896-ZT [F] 175 mL + acetylSoln-IV [F] 61694 mg, IV Piggyback Dextrose 5% in Water [...] Seizure Procedure/ (more content not included)... Normal [facility] Comment on above: Result Comment: Elec tronically Signed By: Romero MARCANO, Justice\.br\Date and Time Signed: 03/07/23 17:43 EDT ED Patient Education Noteon 03-07-2023 ED Patient Education Note Normal [facility] ED Patient Summaryon 023 ED Patient Summary (Inserted Image. Nida ble to display) [place] [id number] Patient Discharge Instructions Person Information Name: ROSE MARY SCHNEIDER Age: 17 Years Arrival Date: 03/07/2023 14:06:45 Discharge Diagnosis: 1:Intentional acetaminophen overdose; 2:Suicidal ideation; 3:Antihistamines overdose; 4:Depression; 5:Seizure; 6:Obesity; 7:On deep vein thrombosis (DVT) prophylaxis Primary Care Physician: Fredi Ellington MD Provider Information Primary Provider: Justice Browne MD Advanced Shuttle Preparation Supervisor:None The exam and treatment you received in the Emergency Department were for an urgent problem and are not intended as complete care. It is important that you follow up with a doctor, nurse practitioner, or physician?s sales assistant displays for ongoing care. If your symptoms become [...] opioids can be used to help relieve fbhrokzk-kh-vyzqks pain and are often prescribed following a [...] struggling with addiction, tell your health care information associate and ask for guidance or call [facility] National Helpline at 3-358-229-LXRS. v Source: [place] Department of Health and Human (more content not included)... Normal [facility] Ethanolon 03-07-2023 Ethanol [Mass/Vol] mg/dL Normal <=7 [facility] Comment on above: Performed By: #### 2 202215 #### [facility] [address] [place] [address] HEMATOLOGYOrdered By: SYSTEM SYSTEM on 03-07-2023 Basophils/100 [...] fL Normal 6.4 - 10.8 fL [facility] HemeAutoSS Platelets (Bld) [#/Vol] 442.0 E9/L Normal 150. 0 - 500.0 E9/L [facility] HemeAutoSS RBC (Bld) [#/Vol] 4.5 E12/L Normal 4.3 - 5.9 E12/L [facility] HemeAutoSS WBC corrected for nucl RBC Auto (Bld) [#/Vol] 6.8 E9/L Normal 4.0 - 11.0 E9/L [facility] HemeAutoSS Hep Func Panelon 03-07-2023 Albumin [Mass/Vol] 3.2 g/dL Low 3.3-5.0 [facility] Comment on above: Performed By: #### 2 [id number], [id number] #### [facility] [address] [place] [address] Albumin/Globulin (S) [Mass conc ratio] 0.7 Low 1.1-2.2 [facility] Comment on above: Performed By: #### 2 886121, 7610693 #### [facility] [address] [place] [address] ALP [Catalytic activity/Vol] 45 Int._Unit/L Normal 21-98 [facility] Comment on above: Performed By: #### 2 210023, 7534640 #### [facility] [address] [place] [address] ALT No additional P-5'-P [Catalytic activity/Vol] 12 Int._Unit/L Normal 6-46 [facility] Comment on above: Performed By: #### 2 370596, 3399667 #### [facility] [address] [place] [address] AST [Catalytic activity/Vol] 16 Int._Unit/L Normal 5-43 [facility] Comment on above: Performed By: #### 2 693706, [id number] #### [facility] [address] [place] [address] Bilirubin [Mass/Vol] 0.2 mg/dL Normal 0.0-1.1 [facility] Comment on above: Performed By: #### 2 322067, 5404520 #### [facility] [address] [place] [address] Bilirubin.indirect [Mass or moles/Vol] UTC Abnormal 0.1-0.9 [facility] Comment on above: Result Comment: Resu lt verified by Discern Rule. Performed result UTC (Unable to Calculate) was sent as an Alpha code due the inability to calculate a valid numeric value. Performed By: #### 2 [id number], [id number] #### [facility] [address] [place] [address] Globulin (S) [Mass/Vol] 4.6 g/dL High 1.4-4.0 [facility] Comment on above: Performed By: #### 2 506242, 4601500 #### [facility] [address] [place] [address] Protein [Mass/Vol] 7.8 g/dL Normal 6.0-7.8 [facility] Comment on above: Performed By: #### 2 756455, 9280287 #### [facility] [address] [place] [address] Bilirubin.direct [Mass/Vol] mg/dL Normal 0.1-0.4 [facility] Comment on above: Performed By: #### 2 935194, 0303733 #### [facility] [address] [place] [address] Bilirubin.indirect [Mass or moles/Vol] UTC Abnormal 0.1-0.9 [facility] Comment on above: Result Comment: Resu lt verified by Discern Rule. Performed result UTC (Unable to Calculate) was sent as an Alpha code due the inability to calculate a valid numeric value. Performed By: #### 1 4990965, 4519286, 0469220, 5447577, 62686601, 0963398, 0847066, 7445252, 4068353 ####[facility] [address] [place] [address] Albumin [Mass/Vol] 3.1 g/dL Low 3.3-5.0 [facility] Comment on above: Performed By: #### 1 3865555, 3345949, 4934584, 3358827, 93469586, 7348500, 6299501, 4972152, 9754961 ####[address] [place] [address] Albumin/Globulin (S) [Mass conc ratio] 0.7 Low 1.1-2.2 [facility] Comment on above: Performed By: #### 1 1709295, 2024458, 3087794, 0307887, 52586639, 5517695, 4961910, 8031583, 7407977 ####[address] [address] ALP [Catalytic activity/Vol] 48 Int._Unit/L Normal 21-98 [facility] Comment on above: Performed By: #### 1 1694080, 2151827, 0179503, 0600306, 52026827, 3766221, 9532420, 4545377, 6065465 ####[address] [address] ALT No additional P-5'-P [Catalytic activity/Vol] 11 Int._Unit/L Normal 6-46 [facility] Comment on above: Performed By: #### 1 5356311, 4183246, 6814586, 1962964, 44008335, 9991258, 7739795, 6424947, 5535521 ####[address] [place] [address] AST [Catalytic activity/Vol] 16 Int._Unit/L Normal 5-43 [facility] Comment on above: Performed By: #### 1 7022248, 9148094, 2196378, 9251246, 66090763, 2831089, 3303596, 5790506, 9133774 ####[address] [address] Bilirubin [Mass/Vol] 0.5 mg/dL Normal 0.0-1.1 [facility] Comment on above: Performed By: #### 1 9028650, 0163884, 1738137, 9729648, 52931281, 5892927, 5934704, 8905494, 4477577 ####[facility] [address] [place] [address] Globulin (S) [Mass/Vol] 4.4 g/dL High 1.4-4.0 [facility] Comment on above: Performed By: #### 1 5137066, 6355901, 9525803, 0930414, 28430938, 2302819, 3067087, 6962000, 4672240 ####[facility] [address] [place] [address] Protein [Mass/Vol] 7.5 g/dL Normal 6.0-7.8 [facility] Comment on above: Performed By: #### 1 7429432, 8969139, 5678560, 4055102, 01833505, 6058001, 9347455, 9582111, 4763587 ####[facility] [address] [place] [address] Bilirubin.direct [Mass/Vol] mg/dL Normal 0.1-0.4 [facility] Comment on above: Performed By: #### 1 9435316, 4305245, 9224837, 6547070, 07125217, 9336085, 1624624, 2997750, 0244425 ####[facility] [address] [place] [address] Lipase Levelon 03-07-2023 Lipase [Catalytic activity/Vol] 24 U/L Normal 13-58 [facility] Comment on above: Performed By: #### 1 3784557, 3510551, 1099343, 7053171, 13586424, 5487961, 7193193, 7504880, 3599788 #### [facility] [address] [place] [address] Monitor Recordon 03-07-2023 Monitor Record [id number]#[id number]:1 27 [facility] Monitor Record [id number]#1.00CD:1 27 [facility] Monitor Record [id number]#1.00CD:1 27 [facility] Pre-Arrival Noteon 3 Pre-Arrival Note Pre-Arrival Summary Name: , Current Date: 03/07/2023 14:11:15 EDT Gender: Date of : Age: 17 Pre-Arrival Type: EMS ETA: 03/07/2023 14:33:00 EDT Primary Care Physician: Presenting Problem: overdose tylenol PM Pre-Arrival User: Julianne Sanford RN Referring Source: Location: [place] Completion Date/Time: 03/07/2023 14:03:00 [facility] Emergency Department Pre-Hospital Report Form ____ Vital Signs: Pre-Hospital Report: Treatment in Route: Response to Treatment: Misc. Issues: Normal [facility] Progress Note-Nurseon 2022 Progress Note-Nurse Poison Control aj d and spoke with Chiquis who verbalized [address] Browne aware [facility] SEROLOGYOrdered By: Kizzy Newby on 03-07-2023 Beta hCG Ql Negative (03/07/23 2:43 PM) Normal [facility] Man Sero Salicylateon 03-07-2023 Salicylates [Mass/Vol] mg/dL Low 6-29 [facility] Comment on above: Performed By: #### 1 [id number], 3764239, 7990704, 8469023, 55564922, 6031239, 4681149, 3125511, 1729793 #### [facility] [address] [place] [address] U Drug Screenon 03-07-2023 Amphetamines Screen method >1000 ng/mL Ql (U) Negative Normal Negative [facility] Comment on above: Result Comment: Nega tive Cutoff: <1000 ng/mL Performed By: #### 2 086321 #### [facility] [address] [place] [address] Barbiturates Screen Ql (U) Negative Normal Negative [facility] Comment on above: Result Comment: Nega tive Cutoff: <200 ng/mL Performed By: #### 2 470021 #### [facility] [address] [place] [address] Benzodiazepines Ql (U) Negative Normal Negative [facility] Comment on above: Result Comment: Nega tive Cutoff: <200 ng/mL Performed By: #### 2 987914 #### [facility] [address] [place] [address] Cocaine Ql (U) Negative Normal Negative [facility] Comment on above: Result Comment: Nega tive Cutoff: <300 ng/mL Performed By: #### 2 828732 #### [facility] [address] [place] [address] Opiates Screen Ql (U) Negative Normal Negative [facility] Comment on above: Result Comment: Nega tive Cutoff: <300 ng/mL Performed By: #### 2 843605 #### [facility] [address] [place] [address] Phencyclidine Screen method >25 ng/mL Ql (U) Negative Normal Negative [facility] Comment on above: Result Comment: Nega tive Cutoff: <25 ng/mL These drug screen results are to be used for medical (i.e., treatment) purposes only. Unconfirmed drug screening results must not be used for non-medical purposes (e.g., employment testing, legal testing). Performed By: #### 2 609159 #### [facility] [address] [place] [address] Tetrahydrocannabinol Screen method >50 ng/mL Ql (U) Negative Normal Negative [facility] Comment on above: Result Comment: Nega tive Cutoff: <50 ng/mL Performed By: #### 2 178750 #### [facility] [address] [place] [address] XR Chest Single Viewon 03-07 XR Chest [...] mGy = na DAP = na Normal [facility] eGFRon 03-07-2023 GFR/1.73 sq M.predicted among non-blacks MDRD (S/P/Bld) [Vol rate/Area] 95 mL/min/1.73 m2 Normal >=59 [facility] Comment on above: Order Comment: Order added by Discern Expert. Result Comment: Radiological Defense Officer marleny kidney disease could be indicated at eGFR's of less than 60 mL/min/1.73m2. Kidney failure is indicated at less than 15 mL/min/1.73m2. Performed By: #### 1 9342231, 5002269, 3390544, 1736089, 88725427, 9896126, 4767798, 9942416, 2096997 ####[facility] [address] [place] [address] B hCG Qualon 02-27-2023 Beta hCG Ql Negative Normal [facility] Comment on above: Performed By: #### 2 027883, 7407465 #### [facility] [address] [place] [address] Consent for Treatmenton 02-01 Consent for Treatment [id number]#1.00CD:12 7 Normal [facility] Physician Orderon 02-27-2023 Physician Order [id number]#1.00CD:1 27 Normal [facility] SEROLOGYOrdered By: Kizzy Kirk on 02-27-2023 Beta [...] PM) Normal Negative [facility] UA Auto SS [place].plasma/[place]. RBC (Bld) [Mass ratio] 0-3 /HPF Normal [...] Desc Clean Catch (11/13/22 2:29 PM) Normal [facility] UA Auto SS Urobilinogen Qn (U) 0.0483556 {Ed'U}/dL Normal 0.0 - 1.0 EU/dL [facility] UA Auto SS WBC Auto Ql (U) Trace *ABN* (11/13/22 2:29 PM) Invalid Interpretation Code Negative [facility] UA Auto SS WBC LM.HPF (Urine sed) [#/Area] 0-5 /HPF Normal 0-5/HPF [facility] UA Auto SS CBC AUTO DIFFon 11-05-2022 BASO # 0.0 103/ul Normal 0.0-0.1 [facility] Comment on above: Performed By: #### C BC #### [facility] [address] [place] [address] Dr. Tara Jackson Basophils/100 WBC (Bld) 0.5 % Normal 0.2-2.0 [facility] Comment on above: Performed By: #### C BC #### [facility] [address] [place] [address] Dr. Tara Jackson EO # 0.3 103/ul Normal 0.0-0.7 [facility] Comment on above: Performed By: #### C BC #### [facility] [address] [place] [address] Dr. Tara Jackson Eosinophils/100 WBC (Bld) 4.9 % Normal 0.9-7.0 [facility] Comment on above: Performed By: #### C BC #### [facility] [address] [place] [address] Dr. Tara Jackson Erythrocyte distribution width (RBC) [Ratio] 12.8 % Normal 11.0-15.0 [facility] Comment on above: Performed By: #### C BC #### [facility] [address] [place] [address] Dr. Tara Jackson Hematocrit (Bld) [Volume fraction] 35.8 % Critically low 36.0-48.0 [facility] Comment on above: Performed By: #### C BC #### [facility] [address] [place] [address] Dr. Tara Jackson Hemoglobin (Bld) [Mass/Vol] 11.8 g/dL Critically low 12.0-16.0 [facility] Comment on above: Performed By: #### C BC #### [facility] [address] [place] [address] Dr. Tara Jackson IG # 0.01 10e3/ul Normal 0.00-0.03 [facility] Comment on above: Performed By: #### C BC #### [facility] [address] [place] [address] Dr. Tara Jackson IG % 0.2 % Normal 0.0-0.5 [facility] Comment on above: Performed By: #### C BC #### [facility] [address] [place] [address] Dr. Tara Jackson LYMPH # 1.7 103/ul Normal 1.2-3.8 [facility] Comment on above: Performed By: #### C BC #### [facility] [address] [place] [address] Dr. Tara Jackson Lymphocytes/100 WBC (Bld) 30.2 % Normal 20.5-60.0 [facility] Comment on above: Performed By: #### C BC #### [facility] [address] [place] [address] Dr. Tara Jackson MANUAL DIFF REQ NO Normal [facility] Comment on above: Performed By: #### C BC #### [facility] [address] [place] [address] Dr. Tara Jackson MCH (RBC) [Entitic mass] 27.6 pg Normal 26.7-34.0 [facility] Comment on above: Performed By: #### C BC #### [facility] [address] [place] [address] Dr. Tara Jackson MCHC (RBC) [Mass/Vol] 33.0 g/dL Normal 29.9-35.2 [facility] Comment on above: Performed By: #### C BC #### [facility] [address] [place] [address] Dr. Tara Jackson MCV (RBC) [Entitic vol] 83.8 fL Normal 79.1-95.6 [facility] Comment on above: Performed By: #### C BC #### [facility] [address] [place] [address] Dr. Tara Jackson MONO # 0.5 103/ul Normal 0.3-0.8 [facility] Comment on above: Performed By: #### C BC #### [facility] [address] [place] [address] Dr. Tara Jackson Monocytes/100 WBC (Bld) 7.9 % Normal 1.7-12.0 [facility] Comment on above: Performed By: #### C BC #### [facility] [address] [place] [address] Dr. Tara Jackson NEUT # 3.2 103/ul Normal 1.4-6.5 [facility] Comment on above: Performed By: #### C BC #### [facility] [address] [place] [address] Dr. Tara Jackson Neutrophils/100 WBC (Bld) 56.3 % Normal 43.0-75.0 [facility] Comment on above: Performed By: #### C BC #### [facility] [address] [place] [address] Dr. Tara Jackson Platelet mean volume (Bld) [Entitic vol] 9.0 fL Critically low 9.5-13.5 [facility] Comment on above: Performed By: #### C BC #### [facility] [address] [place] [address] Dr. Tara Jackson PLT 373 103/ul Normal 150-450 [facility] Comment on above: Performed By: #### C BC #### [facility] [address] [place] [address] Dr. Tara Jackson RBC 4.27 106/ul Normal 3.40-5.30 [facility] Comment on above: Performed By: #### C BC #### [facility] [address] [place] [address] Dr. Tara Jackson WBC 5.7 103/ul Normal 4.0-11.0 [facility] Comment on above: Performed By: #### C BC #### [facility] [address] [address] [address] 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 Admission #: [id number] Family : TEENA TRAN . Order #: [id number] CLICK HERE TO VIEW EXAM ECHOCARDIOGRAM REPORT [...] Tafoya M.D. on 11/06/2022 at 18:40 Normal [facility] PREG HCG QUALon 11-05-2022 , QUAL Negative Normal NEGATIVE [facility] Comment on above: Performed By: #### C BC #### [facility] [address] [place] [address] Dr. Tara Jackson PROF CHEM 8 (BAS METB)on Anion gap [Moles/Vol] 11.4 mmol/L Normal [facility] Comment on above: Performed By: #### C VDTBH #### [facility] [address] [place] [address] Dr. Tara Jackson Calcium [Mass/Vol] 8.5 mg/dL Normal 8.5-10.1 [facility] Comment on above: Performed By: #### C VDTBH #### [facility] [address] [place] [address] Dr. Tara Jackson Chloride [Moles/Vol] 103 mmol/L Normal 98-107 [facility] Comment on above: Performed By: #### C VDTBH #### [facility] [address] [place] [address] Dr. Tara Jackson CO2 [Moles/Vol] 27.5 mmol/L Normal 21.0-32.0 [facility] Comment on above: Performed By: #### C VDTBH #### [facility] [address] [place] [address] Dr. Tara Jackson Creatinine [Mass/Vol] 0.67 mg/dL Normal 0.55-1.02 [facility] Comment on above: Performed By: #### C VDTBH #### [facility] [address] [place] [address] Dr. Tara Jackson Glucose [Mass/Vol] 93 mg/dL Normal 74-106 [facility] Comment on above: Performed By: #### C VDTBH #### [facility] [address] [place] [address] Dr. Tara Jackson Potassium [Moles/Vol] 3.9 mmol/L Normal 3.5-5.1 [facility] Comment on above: Performed By: #### C VDTBH #### [facility] [address] [address] [address] Tara Jackson Sodium [Moles/Vol] 138 mmol/L Normal 136-145 [facility] Comment on above: Performed By: #### C VDTBH #### [facility] [address] [address] [address] Tara Jackson Urea nitrogen [Mass/Vol] 15.0 mg/dL Normal 6.4-19.3 [facility] Comment on above: Performed By: #### C VDTBH #### [facility] [address] [address] [address] Tara Jackson Urea nitrogen/Creatinine [Mass ratio] 22.4 mg/mg Normal [facility] Comment on above: Performed By: #### C VDTBH #### [facility] [address] [address] [address] Tara Jackson CHEMISTRYOrdered By: SYSTEM SYSTEM [...] 8.2 E9/L Normal 4.0 - 10.5 E9/L [facility] HemeAutoSS SEROLOGYOrdered By: Debby Cleveland on 10-06-2022 HCG.beta subunit (U) [Moles/Vol] Negative Normal [facility] Man Sero URINALYSISOrdered By: Lady Cleveland on [...] AM) Normal Negative [facility] UA Auto SS [place].plasma/[place]. RBC (Bld) [Mass ratio] 0-3 /HPF Normal [...] [facility] UA Auto SS Urobilinogen Qn (U) 0.4288584 {Ed'U}/dL Normal 0.0 - 1.0 EU/dL [place] [...] Comment: Shanique percy Meter POC Device SN [id number] Invalid Interpretation Code [facility] POC Subsection POC User ID [id number] Invalid Interpretation Code [facility] POC Subsection POC Username PENNIE GARCIABakari Invalid Interpretation Code [facility] POC Subsection LEVETIRACETAM, SERUM OR PLAS MAon 09-27-2022 Levetiracetam, S 13.6 ug/mL Normal 10.0-40.0 [facility] Comment on above: Performed By: #### C BC #### [facility] [address] [place] [address] Dr. Tara Jackson INSULINon 09-26-2022 Insulin 21.0 uIU/mL Normal 2.6-24.9 [facility] Comment on above: Performed By: #### I NSULIN #### [facility] [address] [place] [address] Dr. Tara Jackson BILIRUBIN CONJUGATED (DIRECT )on 09-25-2022 BILI, CONJUGATED 0.1 mg/dL Normal 0.0-0.2 [facility] Comment on above: Performed By: #### C VDTBH #### [facility] [address] [place] [address] Dr. Tara Jackson CBC AUTO DIFFon 09-25-2022 BASO # 0.0 103/ul Normal 0.0-0.1 [facility] Comment on above: Performed By: #### C VDTBH #### [facility] [address] [place] [address] Dr. Tara Jackson Basophils/100 WBC (Bld) 0.6 % Normal 0.2-2.0 [facility] Comment on above: Performed By: #### C VDTBH #### [facility] [address] [place] [address] Dr. Tara Jackson EO # 0.3 103/ul Normal 0.0-0.7 [facility] Comment on above: Performed By: #### C VDTBH #### [facility] [address] [place] [address] Dr. Tara Jackson Eosinophils/100 WBC (Bld) 4.5 % Normal 0.9-7.0 [facility] Comment on above: Performed By: #### C VDTBH #### [facility] [address] [place] [address] Dr. Tara Jackson Erythrocyte distribution width (RBC) [Ratio] 12.2 % Normal 11.0-15.0 [facility] Comment on above: Performed By: #### C VDTBH #### [facility] [address] [place] [address] Dr. Tara Jackson Hematocrit (Bld) [Volume fraction] 38.4 % Normal 36.0-48.0 [facility] Comment on above: Performed By: #### C VDTBH #### [facility] [address] [place] [address] Dr. Tara Jackson Hemoglobin (Bld) [Mass/Vol] 13.0 g/dL Normal 12.0-16.0 [facility] Comment on above: Performed By: #### C VDTBH #### [facility] [address] [place] [address] Dr. Tara Jackson IG # 0.01 10e3/ul Normal 0.00-0.03 [facility] Comment on above: Performed By: #### C VDTBH #### [facility] [address] [place] [address] Dr. Tara Jackson IG % 0.2 % Normal 0.0-0.5 [facility] Comment on above: Performed By: #### C VDTBH #### [facility] [address] [place] [address] Dr. Tara Jackson LYMPH # 1.8 103/ul Normal 1.2-3.8 [facility] Comment on above: Performed By: #### C VDTBH #### [facility] [address] [place] [address] Dr. Tara Jackson Lymphocytes/100 WBC (Bld) 28.7 % Normal 20.5-60.0 [facility] Comment on above: Performed By: #### C VDTBH #### [facility] [address] [place] [address] Dr. Tara Jackson MANUAL DIFF REQ NO Normal [facility] Comment on above: Performed By: #### C VDTBH #### [facility] [address] [place] [address] Dr. Tara Jackson MCH (RBC) [Entitic mass] 28.6 pg Normal 26.7-34.0 [facility] Comment on above: Performed By: #### C VDTBH #### [facility] [address] [place] [address] Dr. Tara Jackson MCHC (RBC) [Mass/Vol] 33.9 g/dL Normal 29.9-35.2 [facility] Comment on above: Performed By: #### C VDTBH #### [facility] [address] [place] [address] Dr. Tara Jackson MCV (RBC) [Entitic vol] 84.4 fL Normal 79.1-95.6 [facility] Comment on above: Performed By: #### C VDTBH #### [facility] [address] [place] [address] Dr. Tara Jackson MONO # 0.4 103/ul Normal 0.3-0.8 [facility] Comment on above: Performed By: #### C VDTBH #### [facility] [address] [place] [address] Dr. Tara Jackson Monocytes/100 WBC (Bld) 6.5 % Normal 1.7-12.0 [facility] Comment on above: Performed By: #### C VDTBH #### [facility] [address] [place] [address] Dr. Tara Jackson NEUT # 3.7 103/ul Normal 1.4-6.5 [facility] Comment on above: Performed By: #### C VDTBH #### [facility] [address] [place] [address] Dr. Tara Jackson Neutrophils/100 WBC (Bld) 59.5 % Normal 43.0-75.0 [facility] Comment on above: Performed By: #### C VDTBH #### [facility] Laboratory [address] [place] [address] Dr. Tara Jackson Platelet mean volume (Bld) [Entitic vol] 9.0 fL Critically low 9.5-13.5 [facility] Comment on above: Performed By: #### C VDTBH #### [facility] [address] [place] [address] Dr. Tara Jackson PLT 401 103/ul Normal 150-450 [facility] Comment on above: Performed By: #### C VDTBH #### [facility] [address] [place] [address] Dr. Tara Jackson RBC 4.55 106/ul Normal 3.40-5.30 [facility] Comment on above: Performed By: #### C VDTBH #### [facility] [address] [place] [address] Dr. Tara Jackson WBC 6.2 103/ul Normal 4.0-11.0 [facility] Comment on above: Performed By: #### C VDTBH #### [facility] [address] [place] [address] Dr. Tara Jackson FREE THYROXINE INDEX T7on FTI 2.77 Normal 1.30-4.50 [facility] Comment on above: Performed By: #### C BC #### [facility] [address] [place] [address] Dr. Tara Jackson T3U 36.0 % Normal 30.0-39.0 [facility] Comment on above: Performed By: #### C BC #### [facility] [address] [place] [address] Dr. Tara Jackson T4 [Mass/Vol] 7.70 ug/dL Normal 5.40-10.60 [facility] Comment on above: Performed By: #### C BC #### [facility] [address] [place] [address] Dr. Tara Jackson GLYCOHEMOGLOBIN A1Con 2022 ADA RECOMMENDATION SEE BELOW Normal [facility] Comment on above: Result Comment: ADA RECOMMENDED LIMIT 4.0 - 6.0 ADA THERAPEUTIC TARGET < 7.0 ACTION SUGGESTED > 7.0 Performed By: #### A 1C #### [facility] [address] [place] [address] Dr. Tara Jackson Glucose [Mass/Vol] 103 mg/dL Normal [facility] Comment on above: Performed By: #### A 1C #### [facility] [address] [place] [address] Dr. Tara Jackson HbA1c (Bld) [Mass fraction] 5.2 % Normal 4.5-6.2 [facility] Comment on above: Performed By: #### A 1C #### [facility] [address] [place] [address] Dr. Tara Jackson IRONon 09-25-2022 Iron [Mass/Vol] 33.0 ug/dL Critically low 50.0-170.0 [facility] Comment on above: Performed By: #### C VDTB #### [facility] [address] [place] [address] Dr. Tara Jackson LIPID PROFILEon 09-25-2022 CHOL-HDL RATIO NORM SEE BELOW Normal [facility] Comment on above: Result Comment: 3.3 - 4.4 LOW RISK 4.4 - 7.1 AVERAGE RISK 7.1 - 11.0 MODERATE RISK >11.0 HIGH RISK Performed By: #### C BC #### [facility] [address] [place] [address] Dr. Tara Jackson Cholesterol [Mass/Vol] 189 mg/dL Normal 104-227 [facility] Comment on above: Performed By: #### C BC #### [facility] [address] [place] [address] Dr. Tara Jackson Cholesterol in HDL [Mass/Vol] 36 mg/dL Normal 29-69 [facility] Comment on above: Performed By: #### C BC #### [facility] [address] [address] [address] Tara Jackson Cholesterol in LDL [Mass/Vol] 128.4 mg/dL Normal 46.0-140.0 [facility] Comment on above: Performed By: #### C BC #### [facility] [address] [place] [address] Dr. Tara Jackson Cholesterol.total/Vianey sterol in HDL [Mass ratio] 5.3 {ratio} Normal [facility] Comment on above: Performed By: #### C BC #### [facility] [address] [place] [address] Dr. Tara Jackson HDL NORMAL > or = 60 mg/dl - LO W CARDIOVASCULAR RISK <40 mg/dl - HIGH CARDIOVASCULAR RISK Normal [facility] Comment on above: Performed By: #### C BC #### [facility] [address] [place] [address] Dr. Tara Jackson LDL CALC NORMAL SEE BELOW Normal [facility] Comment on above: Result Comment: <100 mg/dl OPTIMAL 100 - 129 mg/dl NEAR OR ABOVE OPTIMAL 130 - 159 mg/dl BORDERLINE HIGH 160 - 189 mg/dl HIGH >190 mg/dl VERY HIGH Performed By: #### C BC #### [facility] [address] [place] [address] Dr. Tara Jackson Triglyceride [Mass/Vol] 123 mg/dL Normal 53-208 [facility] Comment on above: Performed By: #### C BC #### [facility] [address] [place] [address] Dr. Tara Jackson VLDL CALC 24.6 mg/dL Normal [facility] Comment on above: Performed By: #### C BC #### [facility] [address] [place] [address] Dr. Tara Jackson PROF 14(COMP METB)on 023 Albumin [Mass/Vol] 3.2 g/dL Critically low 3.4-5.0 [facility] Comment on above: Performed By: #### C BC #### [facility] [address] [place] [address] Dr. Tara Jackson Albumin/Globulin [Mass ratio] 0.7 {ratio} Normal [facility] Comment on above: Performed By: #### C BC #### [facility] [address] [place] [address] Dr. Tara Jackson ALP [Catalytic activity/Vol] 80 U/L Normal 65-260 [facility] Comment on above: Performed By: #### C BC #### [facility] [address] [place] [address] Dr. Tara Jackson ALT [Catalytic activity/Vol] 18 U/L Normal 14-59 [facility] Comment on above: Performed By: #### C BC #### [facility] [address] [place] [address] Dr. Tara Jackson Anion gap [Moles/Vol] 9.0 mmol/L Normal [facility] Comment on above: Performed By: #### C BC #### [facility] [address] [place] [address] Dr. Tara Jackson AST [Catalytic activity/Vol] 18 U/L Normal 15-37 [facility] Comment on above: Performed By: #### C BC #### [facility] [address] [place] [address] Dr. Tara Jackson Bilirubin [Mass/Vol] 0.2 mg/dL Normal 0.2-1.0 [facility] Comment on above: Performed By: #### C BC #### [facility] [address] [place] [address] Dr. Tara Jackson Calcium [Mass/Vol] 9.1 mg/dL Normal 8.5-10.1 [facility] Comment on above: Performed By: #### C BC #### [facility] [address] [place] [address] Dr. Tara Jackson Chloride [Moles/Vol] 101 mmol/L Normal 98-107 [facility] Comment on above: Performed By: #### C BC #### [facility] [address] [place] [address] Dr. Tara Jackson CO2 [Moles/Vol] 30.2 mmol/L Normal 21.0-32.0 [facility] Comment on above: Performed By: #### C BC #### [facility] [address] [address] [address] Tara Jackson Creatinine [Mass/Vol] 0.80 mg/dL Normal 0.55-1.02 [facility] Comment on above: Performed By: #### C BC #### [facility] [address] [address] [address] Tara Jackson Globulin (S) [Mass/Vol] 4.3 g/dL Normal [facility] Comment on above: Performed By: #### C BC #### [facility] [address] [place] [address] Dr. Tara Jackson Glucose [Mass/Vol] 101 mg/dL Normal 74-106 [facility] Comment on above: Performed By: #### C BC #### [facility] [address] [place] [address] Dr. Tara Jackson Potassium [Moles/Vol] 4.2 mmol/L Normal 3.5-5.1 [facility] Comment on above: Performed By: #### C BC #### [facility] [address] [place] [address] Dr. Tara Jackson Protein [Mass/Vol] 7.5 g/dL Normal 6.4-8.2 [facility] Comment on above: Performed By: #### C BC #### [facility] [address] [place] [address] Dr. Tara Jackson Sodium [Moles/Vol] 136 mmol/L Normal 136-145 [facility] Comment on above: Performed By: #### C BC #### [facility] [address] [address] [address] Tara Jackson Urea nitrogen [Mass/Vol] 11.0 mg/dL Normal 6.4-19.3 [facility] Comment on above: Performed By: #### C BC #### [facility] [address] [place] [address] Dr. Tara Jackson Urea nitrogen/Creatinine [Mass ratio] 13.8 mg/mg Normal [facility] Comment on above: Performed By: #### C BC #### [facility] [address] [place] [address] Dr. Tara Jackson TSHon 09-25-2022 TSH 5.240 uIU/mL Critically high 0.516-4.13 0 [facility] Comment on above: Performed By: #### C BC #### [facility] [address] [place] [address] Dr. Tara Jackson Covid-19 PCR ([facility])on SARS-CoV-2 (COVID-19) RNA CHRISTIAN+probe Ql (Unsp spec) Not detected Normal NOT DETECTED [facility] Comment on above: Result Comment: This test is not yet approved or cleared by the [place] FDA. When there are no FDA-approved or cleared tests available, and other criteria are met, FDA can make tests available under an emergency access mechanism called an Emergency Use Authorization (EUA). The EUA for this test is supported by the [place] of Health and Human Service's (HHS's) declaration [...] SARS-CoV-2. Performed By: #### C VDTBH #### [facility] [address] [place] [address] Dr. Tara Jackson INFLUENZA A AND B AGon 09-11 INFLUANEGH SEE BELOW Normal [facility] Comment on above: Result Comment: Nega tive for Flu A protein angiten. Infection due to Flu A cannot be ruled out. Flu A angiten in the sample may be below the detection limit of the test. Performed By: #### I NFLUAB #### [facility] [address] [place] [address] Dr. Tara Jackson INFLUBNEGH SEE BELOW Normal [facility] Comment on above: Result Comment: Nega tive for Flu B protein antigen. Infection due to Flu B cannot be ruled out. Flu B antigen in the sample may be below the detection limit of the test. Performed By: #### I NFLUAB #### [facility] [address] [place] [address] Dr. Tara Jackson INFLUENZA A AG Negative Normal NEGATIVE SEE COMMENT [facility] Comment on above: Performed By: #### I NFLUAB #### [facility] [address] [place] [address] Dr. Tara Jackson INFLUENZA B AG Negative Normal NEGATIVE SEE COMMENT [facility] Comment on above: Performed By: #### I NFLUAB #### [facility] [address] [place] [address] Dr. Tara Jackson [facility] SARS-CoV-2 (COVID-19) RNA CHRISTIAN+probe Ql (Unsp spec) Not detected Normal NOT DETECTED [facility] Comment on above: Result Comment: When [...] for this test is supported by the [place] of Health and Human Service's declaration that [...] used). Performed By: #### C VDTBH #### [facility] [address] [place] [address] Dr. Tara Jackson INFLUENZA A AND B AGon 08-05 INFLUANE SEE BELOW Normal [facility] Comment on above: Result Comment: Nega tive for Flu A protein angiten. Infection due to Flu A cannot be ruled out. Flu A angiten in the sample may be below the detection limit of the test. Performed By: #### I NFLUAB #### [facility] [address] [address] [address] [facility] SEE BELOW Normal [facility] Comment on above: Result Comment: Nega tive for Flu B protein antigen. Infection due to Flu B cannot be ruled out. Flu B antigen in the sample may be below the detection limit of the test. Performed By: #### I NFLUAB #### [facility] [address] [address] [address] Tara Jackson INFLUENZA A AG Negative Normal NEGATIVE SEE COMMENT [facility] Comment on above: Performed By: #### I NFLUAB #### [facility] [address] [address] [address] Tara Jackson INFLUENZA B AG Negative Normal NEGATIVE SEE COMMENT [facility] Comment on above: Performed By: #### I NFLUAB #### [facility] [address] [address] [address] Tara Jackson Albumin [Mass/volume] in Ser um or PlasmaOrdered By: Fredi Ellington on 07-31-2022 Albumin [Mass/Vol] 3.2 g/dL 3.2-5.5 [facility] Basophils Auto (Bld) [#/Vol] Ordered By: Fredi Ellington on 07-31-2022 Basophils (Bld) [#/Vol] 0.0 10*3/uL 0.0-0.1 [facility] Basophils/100 WBC Auto (Bld) Ordered By: Fredi Ellington on 07-31-2022 Basophils/100 WBC (Bld) 0.4 % . F [facility] Cholesterol [Mass/volume] in Serum or PlasmaOrdered By: Fredi Ellington on 07-31-2022 Cholesterol [Mass/Vol] 264 mg/dL 140-200 [facility] Comment on above: Chol less than 200 m g/dl low riskChol 201-239 mg/dl borderline riskChol 240 mg/dl and greater high risk Cholesterol in LDL Calc [Mas s/Vol]Ordered By: Fredi Ellington on 07-31-2022 Cholesterol in LDL [Mass/Vol] 168 mg/dL 0-100 [facility] Comment on above: LDL ATP III CLASSIFI CATIONLDL less than 100 mg/dL OptimalLDL 100-129 mg/dL Near or above optimalLDL 130-159 mg/dL Borderline highLDL 160-189 mg/dL HighLDL greater than 189 mg/dL Very high Cholesterol in VLDL Calc [Ma ss/Vol]Ordered By: Fredi Ellington on 07-31-2022 Cholesterol in VLDL [Mass/Vol] 17 mg/dL [facility] Creatinine and Glomerular fi ltration rate.predicted panel (S/P/Bld)Ordered By: Fredi Ellington on 07-31-2022 Creatinine [Mass/Vol] 0.87 mg/dL 0.44-1.03 [facility] Eosinophils Auto (Bld) [#/Vo l]Ordered By: Fredi Ellington on 07-31-2022 Eosinophils (Bld) [#/Vol] 0.0 10*3/uL 0.0-0.7 [facility] Eosinophils/100 WBC Auto (Bl d)Ordered By: Fredi Ellington on 07-31-2022 Eosinophils/100 WBC (Bld) 0.5 % . [facility] Erythrocyte distribution wid th Auto (RBC) [Ratio]Ordered By: Fredi Ellington on 07-31-2022 Erythrocyte distribution width (RBC) [Ratio] 13.2 % 11.9-15.3 [facility] Estimated glomerular filtrat ion rate (GFR) non- AmericanOrdered By: Fredi Ellington on 07-31-2022 GFR/1.73 sq M.predicted among non-blacks MDRD (S/P/Bld) [Vol rate/Area] N/A [facility] Globulin Calc (S) [Mass/Vol] Ordered By: Fredi Ellington on 07-31-2022 Globulin (S) [Mass/Vol] 3.3 g/dL F [facility] Glucose mean value [Mass/vol ume] in Blood Estimated from glycated hemoglobinOrdered By: Fredi Ellington on 07-31-2022 Average glucose Estimated from glycated hemoglobin (Bld) [Mass/Vol] 114 mg/dL [facility] Hematocrit Auto (Bld) [Volum e fraction]Ordered By: Fredi Ellington on 07-31-2022 Hematocrit (Bld) [Volume fraction] 38.5 % 36.0-46.0 [facility] Hemoglobin A1c percentageOrd ered By: Fredi Ellington on 07-31-2022 HbA1c (Bld) [Mass fraction] 5.6 % 4.3-5.6 [facility] Comment on above: Increased risk for d iabetes: 5.7 - 6.4diabetes: >6.4glycemic control for adults with diabetes: <7.0 Hemoglobin [Mass/volume] in BloodOrdered By: Fredi Ellington on 07-31-2022 Hemoglobin (Bld) [Mass/Vol] 12.7 g/dL 12.0-16.0 [facility] Iron [Mass/volume] in Serum or PlasmaOrdered By: Fredi Ellington on 07-31-2022 Iron [Mass/Vol] 74 ug/dL 40-150 [facility] Leukocytes [#/volume] correc gamaliel for nucleated erythrocytes in Blood by Automated counOrdered By: Fredi Ellington on 07-31-2022 WBC corrected for nucl RBC Auto (Bld) [#/Vol] 8.3 10*3/uL 4.5-13.5 [facility] Lymphocytes Auto (Bld) [#/Vo l]Ordered By: Fredi Ellington on 07-31-2022 Lymphocytes (Bld) [#/Vol] 2.3 10*3/uL 1.20-4.8 [facility] Lymphocytes/100 WBC Auto (Bl d)Ordered By: Fredi Ellington on 07-31-2022 Lymphocytes/100 WBC (Bld) 27.9 % . [facility] MCH Auto (RBC) [Entitic mass ]Ordered By: Fredi Ellington on 07-31-2022 MCH (RBC) [Entitic mass] 28.4 pg 25.0-35.0 [facility] MCHC Auto (RBC) [Mass/Vol]Or dered By: Fredi Ellington on 07-31-2022 MCHC (RBC) [Mass/Vol] 32.9 g/dL 31.0-37.0 [facility] MCV Auto (RBC) [Entitic vol] Ordered By: Fredi Ellington on 07-31-2022 MCV (RBC) [Entitic vol] 86.6 fL 78-102 F [facility] Monocytes Auto (Bld) [#/Vol] Ordered By: Fredi Ellington on 07-31-2022 Monocytes (Bld) [#/Vol] 0.4 10*3/uL 0.1-1.00 [facility] Monocytes/100 WBC Auto (Bld) Ordered By: Fredi Ellington on 07-31-2022 Monocytes/100 WBC (Bld) 5.0 % . F [facility] Neutrophils Auto (Bld) [#/Vo l]Ordered By: Fredi Ellington on 07-31-2022 Neutrophils (Bld) [#/Vol] 5.5 10*3/uL 1.2-7.7 [facility] Neutrophils/100 WBC Auto (Bl d)Ordered By: Fredi Ellington on 07-31-2022 Neutrophils/100 WBC (Bld) 66.2 % . [facility] No Panel InformationOrdered By: Fredi Ellington on 07-31-2022 Estimated GFR () N/A [facility] Creatinine Clearance (Chem N/A [facility] Nucleated erythrocytes [Pres ence] in Blood by Automated countOrdered By: Fredi Ellington on 07-31-2022 Nucleated RBC Auto Ql (Bld) 0.1 /100{WBC} 0-0.5 [facility] Platelet mean volume Auto (B ld) [Entitic vol]Ordered By: Fredi Ellington on 07-31-2022 Platelet mean volume (Bld) [Entitic vol] 7.5 fL 6.3-10.7 [facility] Platelets Auto (Bld) [#/Vol] Ordered By: Fredi Ellington on 07-31-2022 Platelets (Bld) [#/Vol] 420 10*3/uL 150-450 [facility] Protein [Mass/volume] in Ser um or PlasmaOrdered By: Fredi Ellington on 07-31-2022 Protein [Mass/Vol] 6.5 g/dL 6.1-7.9 [facility] RBC Auto (Bld) [#/Vol]Ordere d By: Fredi Rakel on 07-31-2022 RBC (Bld) [#/Vol] 4.45 10*6/uL 4.10-5.10 [facility] Serum or plasma alanine lucas otransferase measurement without P-5'-P (enzymatic activiOrdered By: Fredi Ellington on 07-31-2022 ALT No additional P-5'-P [Catalytic activity/Vol] 12 U/L 10-60 [facility] Serum or plasma albumin/glob ulin mass ratioOrdered By: Fredi Ellington on 07-31-2022 Albumin/Globulin [Mass ratio] 1.0 {ratio} [facility] Serum or plasma alkaline rosmery sphatase measurement (enzymatic activity/volume)Ordered By: Fredi Ellington on 07-31-2022 ALP [Catalytic activity/Vol] 49 U/L 32-92 [facility] Serum or plasma anion gap de terminationOrdered By: Fredi Ellington on 07-31-2022 Anion gap [Moles/Vol] 11.2 mmol/L 6.0-15.0 [facility] Serum or plasma aspartate am inotransferase measurement (enzymatic activity/volume)Ordered By: Fredi Ellington on 07-31-2022 AST [Catalytic activity/Vol] 13 U/L 10-42 [facility] Serum or plasma calcium trish urement (mass/volume)Ordered By: Fredi Ellington on 07-31-2022 Calcium [Mass/Vol] 9.2 mg/dL 8.2-10.2 [facility] Serum or plasma chloride klarissa surement (moles/volume)Ordered By: Fredi Ellington on 07-31-2022 Chloride [Moles/Vol] 104 mmol/L 95-114 [facility] Serum or plasma glucose trish urement (mass/volume)Ordered By: Fredi Ellington on 07-31-2022 Glucose [Mass/Vol] 96 mg/dL 70-100 [facility] Comment on above: ADA recommended refe rence rangeRandom Glucose Reference Range is dependent on time and content of last meal. Glucose of more than 200 mg/dL in a nonstressed, ambulatory subject supports the diagnosis of Diabetes Mellitus. Serum or plasma high density lipoprotein (HDL) cholesterol measurementOrdered By: Fredi Ellington on 07-31-2022 Cholesterol in HDL [Mass/Vol] 78 mg/dL 35-85 [facility] Comment on above: HDL CHOL ATP-III CLA SSIFICATION Cardiovascular RiskHDL > or equal to 60 mg/dL LOWHDL < 40 mg/dL HIGH Serum or plasma potassium me asurement (moles/volume)Ordered By: Fredi Ellington on 07-31-2022 Potassium [Moles/Vol] 4.0 mmol/L 3.5-5.1 [facility] Serum or plasma sodium measu rement (moles/volume)Ordered By: Fredi Ellington on 07-31-2022 Sodium [Moles/Vol] 137 mmol/L 138-145 [facility] Serum or plasma total biliru bin measurement (mass/volume)Ordered By: Fredi Ellington on 07-31-2022 Bilirubin [Mass/Vol] 0.5 mg/dL 0.3-1.2 [facility] Serum or plasma total carbon dioxide measurement (moles/volume)Ordered By: Fredi Ellington on 07-31-2022 CO2 [Moles/Vol] 25.8 mmol/L 22.0-30.0 [facility] Serum or plasma total choles terol/high density lipoprotein (HDL) cholesterol mass ratOrdered By: Fredi Ellington on 07-31-2022 Cholesterol.total/Vianey sterol in HDL [Mass ratio] 3.4 {ratio} <5.0 [facility] Serum or plasma urea nitroge n measurement (mass/volume)Ordered By: Fredi Ellington on 07-31-2022 Urea nitrogen [Mass/Vol] 18 mg/dL 9-23 [facility] TSH DL <= 0.005 mIU/L QnOrde red By: Fredi Ellington on 07-31-2022 TSH Qn 3.47 m[IU]/L 0.45-5.33 [facility] Thyroxine (T4) free [Mass/vo lume] in Serum or PlasmaOrdered By: Fredi Ellington on 07-31-2022 Free T4 [Mass/Vol] 1.03 ng/dL 0.61-1.12 [facility] Triglyceride [Mass/volume] i n Serum or PlasmaOrdered By: Fredi Ellington on 07-31-2022 Triglyceride [Mass/Vol] 89 mg/dL 35-149 F [facility] Comment on above: TRIG ATP III CLASSIF ICATIONTRIG less than 150 mg/dL NormalTRIG 150-199 mg/dL Borderline highTRIG 200-500 mg/dL High TRIG greater than 500 mg/dL Very highStandard traceable to the Center for Disease Conrtrol and Prevention (CDC) test method. WBC Auto (Bld) [#/Vol]Ordere d By: Fredi Ellington on 07-31-2022 WBC (Bld) [#/Vol] 8.3 10*3/uL 4.5-13.5 [facility] Covid-19 PCR ([facility])on 07-04 SARS-CoV-2 (COVID-19) RNA CHRISTIAN+probe Ql (Unsp spec) Not detected Normal NOT DETECTED [facility] Comment on above: Result Comment: When [...] for this test is supported by the [place] of Health and Human Service's declaration that [...] used). Performed By: #### C VDTB #### [facility] [address] [place] [address] Dr. Tara Jackson INFLUENZA A AND B AGon 07-23 INFLUENZA A AG Negative Normal NEGATIVE SEE COMMENT [facility] Comment on above: Performed By: #### I NFLUAB #### [facility] [address] [address] [address] Tara Jackson INFLUENZA B AG Negative Normal NEGATIVE SEE COMMENT [facility] Comment on above: Performed By: #### I NFLUAB #### [facility] [address] [address] [address] Tara Jackson INTERNAL CONTROLS Within Normal Limits Normal Wi thin Normal Limits [facility] Comment on above: Performed By: #### I NFLUAB #### [facility] [address] [address] [address] Tara Jackson RSVon 07-23-2022 RSV AG Negative Normal NEGATIVE [facility] Comment on above: Performed By: #### R SV #### [facility] [address] [address] [address] Tara Jackson CHEMISTRYOrdered By: SYSTEM SYSTEM [...] spec) Not detected Normal NOT DETECTED [facility] Comment on above: Result Comment: This test is not yet approved or cleared by the [place] FDA. When there are no FDA-approved or cleared tests available, and other criteria are met, FDA can make tests available under an emergency access mechanism called an Emergency Use Authorization (EUA). The EUA for this test is supported by the Panel Maker of Health and Human Service's (HHS's) declaration [...] consistent with SARS-CoV-2. Performed By: #### [facility] #### [facility] [address] [place] [address] Dr. Tara Jackson HEMATOLOGYOrdered By: SYSTEM SYSTEM [...] AGon 07-08 INFLUANEGH SEE BELOW Normal [facility] Comment on above: Result Comment: Nega tive for Flu A protein angiten. Infection due to Flu A cannot be ruled out. Flu A angiten in the sample may be below the detection limit of the test. Performed By: #### I NFLUAB #### [facility] [address] [facility] SEE BELOW Normal [facility] Comment on above: Result Comment: Nega tive for Flu B protein antigen. Infection due to Flu B cannot be ruled out. Flu B antigen in the sample may be below the detection limit of the test. Performed By: #### I NFLUAB #### [facility] [address] [address] [address] Tara Jackson INFLUENZA A AG Negative Normal NEGATIVE SEE COMMENT [facility] Comment on above: Performed By: #### I NFLUAB #### [facility] [address] [place] [address] Dr. Tara Jackson INFLUENZA B AG Negative Normal NEGATIVE SEE COMMENT [facility] Comment on above: Performed By: #### I NFLUAB #### [facility] [address] [place] [address] Dr. Tara Jackson INTERNAL CONTROLS Within Normal Limits Normal Wi thin Normal Limits [facility] Comment on above: Performed By: #### I NFLUAB #### [facility] [address] [address] [address] Tara Jackson MICRO OTHER TESTSOrdered By: Chuck Jackson on 07-08-2022 S. pyogenes Ag IA.rapid Ql (Throat) Negative (07/08/22 8:55 PM) Normal Negative [facility] Man Sero SEROLOGYOrdered By: Chuck harrison on [...] PM) Normal Negative [facility] UA Auto SS [place].plasma/[place]. RBC (Bld) [Mass ratio] 0-3 /HPF Normal [...] [place] UA Auto SS Urobilinogen Qn (U) [id number] {Ed'U}/dL Normal 0.0 - 1.0 EU/dL [facility] [...] Comment: Shanique percy Meter POC Device SN [id number] Invalid Interpretation Code [facility] POC Subsection POC User ID [id number] Invalid Interpretation Code [facility] POC Subsection POC Username CLA NOLASCO Invalid Interpretation Code [facility] [...] HemeAutoSS INFLUENZA A AND B AGon 06-25 [facility] SEE BELOW Normal [facility] Comment on above: Result Comment: Nega tive for Flu A protein angiten. Infection due to Flu A cannot be ruled out. Flu A angiten in the sample may be below the detection limit of the test. Performed By: #### C [facility] #### [facility] [address] [place] [address] [facility] SEE BELOW Normal [facility] Comment on above: Result Comment: Nega tive for Flu B protein antigen. Infection due to Flu B cannot be ruled out. Flu B antigen in the sample may be below the detection limit of the test. Performed By: #### C VDTBH #### [facility] [address] [place] [address] Dr. Tara Jackson INFLUENZA A AG Negative Normal NEGATIVE SEE COMMENT [facility] Comment on above: Performed By: #### C VDTBH #### [facility] [address] [address] [address] Tara Jackson INFLUENZA B AG Negative Normal NEGATIVE SEE COMMENT [facility] Comment on above: Performed By: #### C VDTBH #### [facility] [address] [place] [address] Dr. Tara Jackson INTERNAL CONTROLS Within Normal Limits Normal Wi thin Normal Limits [facility] Comment on above: Performed By: #### C VDTBH #### [facility] [address] [place] [address] Dr. Tara Jackson Covid-19 PCR (CVDTB)on 06-03 SARS-CoV-2 (COVID-19) RNA CHRISTIAN+probe Ql (Unsp spec) Not detected Normal NOT DETECTED [facility] Comment on above: Result Comment: This test is not yet approved or cleared by the [place] FDA. When there are no FDA-approved or cleared tests available, and other criteria are met, FDA can make tests available under an emergency access mechanism called an Emergency Use Authorization (EUA). The EUA for this test is supported by the Panel Maker of Health and Human Service's (HHS's) declaration [...] SARS-CoV-2. Performed By: #### I NFLUAB #### [facility] [address] [place] [address] Dr. Tara Jackson Covid-19 PCR (CVDTBH)on 05-04 SARS-CoV-2 (COVID-19) RNA CHRISTIAN+probe Ql (Unsp spec) Not detected Normal NOT DETECTED [facility] Comment on above: Result Comment: This test is not yet approved or cleared by the [place] FDA. When there are no FDA-approved or cleared tests available, and other criteria are met, FDA can make tests available under an emergency access mechanism called an Emergency Use Authorization (EUA). The EUA for this test is supported by the [place] of Health and Human Service's (HHS's) declaration [...] SARS-CoV-2. Performed By: #### I NFLUAB #### [facility] [address] [place] [address] Dr. Tara Jackson AMYLASEon 04-26-2022 Amylase [Catalytic activity/Vol] 17 U/L Critically low 25-115 [facility] Comment on above: Performed By: #### I NFLUAB #### [facility] [address] [place] [address] Dr. Tara Jackson CBC AUTO DIFFon 04-26-2022 BASO # 0.0 103/ul Normal 0.0-0.1 [facility] Comment on above: Performed By: #### C VDTBH #### [facility] [address] [place] [address] Dr. Tara Jackson Basophils/100 WBC (Bld) 0.7 % Normal 0.2-2.0 [facility] Comment on above: Performed By: #### C VDTBH #### [facility] [address] [place] [address] Dr. Tara Jackson EO # 0.3 103/ul Normal 0.0-0.7 [facility] Comment on above: Performed By: #### C VDTBH #### [facility] [address] [place] [address] Dr. Tara Jackson Eosinophils/100 WBC (Bld) 5.1 % Normal 0.9-7.0 [facility] Comment on above: Performed By: #### C VDTBH #### [facility] [address] [place] [address] Dr. Tara Jackson Erythrocyte distribution width (RBC) [Ratio] 13.5 % Normal 11.0-15.0 [facility] Comment on above: Performed By: #### C VDTBH #### [facility] [address] [place] [address] Dr. Tara Jackson Hematocrit (Bld) [Volume fraction] 37.9 % Normal 36.0-48.0 [facility] Comment on above: Performed By: #### C VDTBH #### [facility] [address] [place] [address] Dr. Tara Jackson Hemoglobin (Bld) [Mass/Vol] 12.4 g/dL Normal 12.0-16.0 [facility] Comment on above: Performed By: #### C VDTBH #### [facility] [address] [place] [address] Dr. Tara Jackson IG # 0.01 10e3/ul Normal 0.00-0.03 [facility] Comment on above: Performed By: #### C VDTBH #### [facility] [address] [place] [address] Dr. Tara Jackson IG % 0.2 % Normal 0.0-0.5 [facility] Comment on above: Performed By: #### C VDTBH #### [facility] [address] [place] [address] Dr. Tara Jackson LYMPH # 1.6 103/ul Normal 1.2-3.8 [facility] Comment on above: Performed By: #### C VDTBH #### [facility] [address] [place] [address] Dr. Tara Jackson Lymphocytes/100 WBC (Bld) 28.8 % Normal 20.5-60.0 [facility] Comment on above: Performed By: #### C VDTBH #### [facility] [address] [place] [address] Dr. Tara Jackson MANUAL DIFF REQ NO Normal [facility] Comment on above: Performed By: #### C VDTBH #### [facility] [address] [place] [address] Dr. Tara Jackson MCH (RBC) [Entitic mass] 28.1 pg Normal 26.7-34.0 [facility] Comment on above: Performed By: #### C VDTBH #### [facility] [address] [place] [address] Dr. Tara Jackson MCHC (RBC) [Mass/Vol] 32.7 g/dL Normal 29.9-35.2 [facility] Comment on above: Performed By: #### C VDTBH #### [facility] [address] [place] [address] Dr. Tara Jackson MCV (RBC) [Entitic vol] 85.7 fL Normal 79.1-95.6 [facility] Comment on above: Performed By: #### C VDTBH #### [facility] [address] [place] [address] Dr. Tara Jackson MONO # 0.3 103/ul Normal 0.3-0.8 [facility] Comment on above: Performed By: #### C VDTBH #### [facility] [address] [place] [address] Dr. Tara Jackson Monocytes/100 WBC (Bld) 6.2 % Normal 1.7-12.0 [facility] Comment on above: Performed By: #### C VDTBH #### [facility] [address] [place] [address] Dr. Tara Jackson NEUT # 3.2 103/ul Normal 1.4-6.5 [facility] Comment on above: Performed By: #### C VDTBH #### [facility] [address] [place] [address] Dr. Tara Jackson Neutrophils/100 WBC (Bld) 59.0 % Normal 43.0-75.0 [facility] Comment on above: Performed By: #### C VDTBH #### [facility] [address] [place] [address] Dr. Tara Jackson Platelet mean volume (Bld) [Entitic vol] 9.7 fL Normal 9.5-13.5 [facility] Comment on above: Performed By: #### C VDTBH #### [facility] [address] [place] [address] Dr. Tara Jackson PLT 382 103/ul Normal 150-450 [facility] Comment on above: Performed By: #### C VDTBH #### [facility] [address] [place] [address] Dr. Tara Jackson RBC 4.42 106/ul Normal 3.40-5.30 [facility] Comment on above: Performed By: #### C VDTBH #### [facility] [address] [place] [address] Dr. Tara Jackson WBC 5.5 103/ul Normal 4.0-11.0 [facility] Comment on above: Performed By: #### C VDTBH #### [facility] [address] [place] [address] Dr. Tara Jackson IRONon 04-26-2022 Iron [Mass/Vol] 55.0 ug/dL Normal 50.0-170.0 [facility] Comment on above: Performed By: #### C VDTBH #### [facility] [address] [place] [address] Dr. Tara Jackson LIPASEon 04-26-2022 Lipase [Catalytic activity/Vol] 191.0 U/L Normal 73.0-393.0 [facility] Comment on above: Performed By: #### I NFLUAB #### [facility] [address] [place] [address] Dr. Tara Jackson PREG QUANT HCGon 04-26-2022 HCG QUANT <1 Normal [facility] Comment on above: Performed By: #### I NFLUAB #### [facility] [address] [place] [address] Dr. Tara Jackson HCG RANGE SEE BELOW Normal [facility] Comment on above: Result Comment: 5-50 0.2-1 WEEK 50-500 1-2 WEEKS 100-5,000 2-3 WEEKS 500-10,000 3-4 WEEKS 1,000-50,000 4-5 WEEKS 10,000-100,000 5-6 WEEKS 15,000-200,000 6-8 WEEKS 10,000-100,000 2-3 MONTHS Performed By: #### I NFLUAB #### [facility] [address] [place] [address] Dr. Tara Jackson PROF 14(COMP METB)on 022 Albumin [Mass/Vol] 3.0 g/dL Critically low 3.4-5.0 [facility] Comment on above: Performed By: #### I NFLUAB #### [facility] [address] [place] [address] Dr. Tara Jackson Albumin/Globulin [Mass ratio] 0.7 {ratio} Normal [facility] Comment on above: Performed By: #### I NFLUAB #### [facility] [address] [place] [address] Dr. Tara Jackson ALP [Catalytic activity/Vol] 58 U/L Critically low 65-260 [facility] Comment on above: Performed By: #### I NFLUAB #### [facility] [address] [place] [address] Dr. Tara Jackson ALT [Catalytic activity/Vol] 19 U/L Normal 14-59 [facility] Comment on above: Performed By: #### I NFLUAB #### [facility] [address] [place] [address] Dr. Tara Jackson Anion gap [Moles/Vol] 11.1 mmol/L Normal [facility] Comment on above: Performed By: #### I NFLUAB #### [facility] [address] [place] [address] Dr. Tara Jackson AST [Catalytic activity/Vol] 13 U/L Critically low 15-37 [facility] Comment on above: Performed By: #### I NFLUAB #### [facility] [address] [address] [address] Tara Jackson Bilirubin [Mass/Vol] 0.3 mg/dL Normal 0.2-1.0 [facility] Comment on above: Performed By: #### I NFLUAB #### [facility] [address] [address] [address] Tara Jackson Calcium [Mass/Vol] 8.7 mg/dL Normal 8.5-10.1 [facility] Comment on above: Performed By: #### I NFLUAB #### [facility] [address] [place] [address] Dr. Tara Jackson Chloride [Moles/Vol] 103 mmol/L Normal 98-107 [facility] Comment on above: Performed By: #### I NFLUAB #### [facility] [address] [place] [address] Dr. Tara Jackson CO2 [Moles/Vol] 25.0 mmol/L Normal 21.0-32.0 [facility] Comment on above: Performed By: #### I NFLUAB #### [facility] [address] [place] [address] Dr. Tara Jackson Creatinine [Mass/Vol] 0.88 mg/dL Normal 0.55-1.02 [facility] Comment on above: Performed By: #### I NFLUAB #### [facility] [address] [place] [address] Dr. Tara Jackson Globulin (S) [Mass/Vol] 4.6 g/dL Normal [facility] Comment on above: Performed By: #### I NFLUAB #### [facility] [address] [place] [address] Dr. Tara Jackson Glucose [Mass/Vol] 91 mg/dL Normal 74-106 [facility] Comment on above: Performed By: #### I NFLUAB #### [facility] [address] [place] [address] Dr. Tara Jackson Potassium [Moles/Vol] 4.1 mmol/L Normal 3.5-5.1 [facility] Comment on above: Performed By: #### I NFLUAB #### [facility] [address] [address] [address] Tara Jackson Protein [Mass/Vol] 7.6 g/dL Normal 6.4-8.2 [facility] Comment on above: Performed By: #### I NFLUAB #### [facility] [address] [address] [address] Tara Jackson Sodium [Moles/Vol] 135 mmol/L Critically low 136-145 [facility] Comment on above: Performed By: #### I NFLUAB #### [facility] [address] [address] [address] Tara Jackson Urea nitrogen [Mass/Vol] 9.0 mg/dL Normal 6.4-19.3 [facility] Comment on above: Performed By: #### I NFLUAB #### [facility] [address] [address] [address] Tara Jackson Urea nitrogen/Creatinine [Mass ratio] 10.2 mg/mg Normal [facility] Comment on above: Performed By: #### I NFLUAB #### [facility] [address] [address] [address] Tara Jackson CHEMISTRYOrdered By: SYSTEM SYSTEM on 04-04-2022 Cholesterol [Mass/Vol] 210 mg/dL High 120 - 200 mg/dL [facility] Remisol Cholesterol in HDL [Mass/Vol] 45 mg/dL Invalid Interpretation Code [facility] Remisol Cholesterol in LDL [Mass/Vol] 159 mg/dL High <=129mg/dL [facility] Remisol Cholesterol in VLDL [Mass/Vol] 20 mg/dL Normal 7 - 40 mg/dL [facility] Remisol Glucose post fast [Mass/Vol] 100 mg/dL High 55 - 99 mg/dL [facility] Remisol Triglyceride [Mass/Vol] 101 mg/dL Normal <=149mg/dL [facility] Remisol CHEMISTRYOrdered By: Valeriy Rivas on 04-04-2022 HbA1c (Bld) [Mass fraction] 5.3 % Normal <=5.9% [facility] ChemAutoSS Covid-19 PCR (CVDTBH)on 03-03 SARS-CoV-2 (COVID-19) RNA CHRISTIAN+probe Ql (Unsp spec) Not detected Normal NOT DETECTED [facility] Comment on above: Result Comment: This test is not yet approved or cleared by the [place] FDA. When there are no FDA-approved or cleared tests available, and other criteria are met, FDA can make tests available under an emergency access mechanism called an Emergency Use Authorization (EUA). The EUA for this test is supported by the [place] of Health and Human Service's (HHS's) declaration [...] SARS-CoV-2. Performed By: #### I NFLUAB #### [facility] [address] [place] [address] Dr. Tara Jackson [facility]on SARS-CoV-2 (COVID-19) RNA CHRISTIAN+probe Ql (Unsp spec) Not detected Normal NOT DETECTED [facility] Comment on above: Result Comment: This test is not yet approved or cleared by the [place] FDA. When there are no FDA-approved or cleared tests available, and other criteria are met, FDA can make tests available under an emergency access mechanism called an Emergency Use Authorization (EUA). The EUA for this test is supported by the Panel [place] of Health and Human Service's (HHS's) declaration [...] SARS-CoV-2. Performed By: #### I NFLUAB #### [facility] [address] [place], [place] [id number] Dr. Tara Jackson Covid-19 PCR ([facility])on 01-01 SARS-CoV-2 (COVID-19) RNA CHRISTIAN+probe Ql (Unsp spec) Not detected Normal NOT DETECTED [facility] Comment on above: Result Comment: This test is not yet approved or cleared by the [place] FDA. When there are no FDA-approved or cleared tests available, and other criteria are met, FDA can make tests available under an emergency access mechanism called an Emergency Use Authorization (EUA). The EUA for this test is supported by the Panel Maker of Health and Human Service's (HHS's) declaration [...] SARS-CoV-2. Performed By: #### I NFLUAB #### [facility] [address] [place] [address] Dr. Tara Jackson SYMPTOMATIC COVID-19 ANTIGEN on 01-17-2022 EUA Statement SEE BELOW Normal [facility] Comment on above: Result Comment: This [...] sooner. Performed By: #### C VDAGS #### [facility] [address] [place], [place] [address] Dr. Tara Jackson SARS-CoV-2 (COVID-19) RNA CHRISTIAN+probe Ql (Unsp spec) Negative Normal NEGATIVE [facility] Comment on above: Performed By: #### C VDAGS #### [facility] [address] [address] [address] Tara Jackson CHEMISTRYOrdered By: SYSTEM SYSTEM [...] E9/L Normal 150. 0 - 450.0 E9/L [facility] HemeAutoSS RBC (Bld) [#/Vol] 4.4 E12/L Normal 4.1 - 5.3 E12/L [facility] HemeAutoSS WBC corrected for nucl RBC Auto (Bld) [#/Vol] 6.5 E9/L Normal 4.0 - 10.5 E9/L [facility] HemeAutoSS MICRO OTHER TESTSOrdered By: Debby Cleveland [...] only phone number listed in the computer ([phone]) went straight to the mother's voicemail and it was not taking messages. Called back and requested to call another number - [phone] Today (10/24/2019) I did a telephone conference [...] update: no changes 1 Refills: yes Pharmacy: [facility] in [place] PCP: same 1 Amended By: Martina Bedolla; [...] moderate persistent; YANNA = N; Sent To: [facility]Y #[id number] Asthma, moderate persistent, Chronic cough Renew: Cetirizine HCl - 10 MG Oral Tablet; TAKE 1 TABLET BY MOUTH DAILY Rx By: Martina Bedolla; Dispense: 0 Days ; #:1 X 30 Tablet Bottle; Refill: 3; For: Asthma, moderate persistent, Chronic cough; YANNA = N; Sent To: [facility]/PHARMACY #6173 Non-allergic rhinitis Renew: Fluticasone Propionate 50 MCG/ACT Nasal Suspension; USE 2 SPRAYS IN EACH NOSTRIL ONCE DAILY Rx By: Martina Bedolla; Dispense: 0 Days ; #:1 X 16 GM Bottle; Refill: 6; For: Non-allergic rhinitis; YANNA = N; Sent To: [facility]/PHARMACY #[id number] Signatures Electronically signed by : Martina Bedolla [...] or you have questions about the plan ([phone]). Please call us if you are having [...] Behavior appropriate for age. Results/Data Asthma Action [id number] 01:32PMartina Barron Test NameResultFlagReference See Scanned DocumetSee Scanned Document Summary / No summary entered : No summary entered Documents attached : [facility] Action Plan - Martina Bedolla; Enc: [id number] - Appointment - Martina Bedolla - (Pediatric Pulmonology) (Result Document) Spirometry loops personally reviewed. Test done today shows: rejected Orders Asthma, moderate persistent Renew: Dulera 200-5 MCG/ACT Inhalation Aerosol; Inhale 2 puffs twice daily with a spacer Rx By: Martina Bedolla; Dispense: 0 Days ; #:1 X 13 GM Inhaler; Refill: 6;For: Asthma, moderate persistent; YANNA = N; Verified Transmission [facility]; Last Updated By: GameDuell; 05/30/2019 3:29:40 PM Renew: Ventolin HFA 108 (90 Base) MCG/ACT Inhalation Aerosol Solution; Inhale 2-4 puffs every 4-6 hours as needed for cough, wheezing and shortness of breath and prior to exercise Rx By: Martina Bedolla; Dispense: 0 Days ; #:1 X 18 GM Inhaler; Refill: 6;For: Asthma, moderate persistent; YANNA = N; Verified Transmission to [facility] #6169; Last Updated By: GameDuell; 05/30/2019 3:29:35 PM Attending Note Attestation: Comments/Additional [...] or you have questions about the plan ([phone]). Please call us if you are having [...] Bedolla; 01/25/2018 1:28:29 PM Pigweed Recorded By: Agnisezka Callaway; 09/02/2018 10:35:18 AM Current Meds Medication [...] Plan; Status:Complete; Done: 26Jan2019 02:00PM Performed:In Office; Due:[id number]; Last Updated By:Monica Rowan; 01/26/2019 2:00:50 PM;Ordered; [...] Feb 13 2019 6:39PM EST (Author) Normal [facility] Peds Pulmonary Medicine- Off ice Visiton 11-24-2018 [...] persistent; YANNA = N; Verified Transmission to [facility]Y #[id number]; Last Updated By: Duarte Orta; 01/25/2018 [...] SPRAYS IN EACH NOSTRIL ONCE DAILY; Therapy: [id number] to (Last Rx:02Sep2018) Requested for: 02Sep2018 Ordered Rx By: Martina Bedolla; Dispense: 0 Days ; #:1 X 16 GM Bottle; Refill: 5;For: Non-allergic rhinitis; YANNA = N; Print Rx Ibuprofen 800 MG Oral Tablet; Therapy: 26Jan2018 to Recorded Dispense: 20 Days ; #:60; Refill: 0; YANNA = N; Record; Last Updated By: Arminda Linda; 03/18/2018 2:27:47 PM 08/22 1-20 MG-MCG Oral Tablet; Therapy: [id number] to Recorded Dispense: 28 Days ; #:28; Refill: 0; YANNA = N; Record; Last Updated By: Arminda Linda; 03/18/2018 2:27:47 PM QUEtiapine Fumarate 200 MG Oral Tablet; TAKE 1 TABLET EVERY DAY AT BEDTIME; Therapy: [id number] to Recorded Rx By: PAZ; Dispense: 30 Days ; #:30; Refill: 0; YANNA = N; Record; Last Updated By: Martina Bedolla; 01/25/2018 2:11:18 PM Vitals Vital Signs Recorded: 29Oct2018 09:33AM Heart Rate78 Somyerzdgpi08 Uywktdpl024 Tyzspubiw93 Rslrpt200 cm 2-20 Stature Pgomchuumd73 % Gfzepe08 kg 2-20 Weight Qdjiwairib38 % BMI Ifhjauyzyg72.84 BMI Hkpexeadwh42 % BSA Calculated1.71 O2 Cjoachdpqx78 Physical Exam Constitutional: awake, alert and cooperative. [...] persistent; YANNA = N; Verified Transmission to [id number]; Last Updated By: System, [employer]; 10/29/2018 1:37:58 PM Provider Impressions Asthma Severity: [...] or you have questions about the plan ([phone]). Please call us if you are having [...] date of service which is 10/29/2018. [facility] Vital Signs Date Time Vital Sign Value Performing Clinician Facility 03-09-2025 09:39-0400 Body mass index (BMI) [Ratio] 41.64 kg/m2 Martina SALAZAR Work Phone: [facility] 03-09-2025 09:39-0400 Body weight 117.03 kg Martina SALAZAR Work Phone: [facility] 03-09-2025 09:39-0400 Diastolic blood pressure 72 mm[Hg] Martina SALAZAR Work Phone: [facility] 03-09-2025 09:39-0400 Systolic blood pressure 120 mm[Hg] Martina Nury PA Work Phone: [facility] 03-02-2025 11:19-0400 Body mass index (BMI) [Ratio] 41 kg/m2 Martina Rupert PA Work Phone: [facility] 03-02-2025 11:19-0400 Body weight 115.21 kg Martina Rupert PA Work Phone: [facility] 03-02-2025 11:19-0400 Diastolic blood pressure 72 mm[Hg] Martina Rupert PA Work Phone: [facility] 03-02-2025 11:19-0400 Systolic blood pressure 116 mm[Hg] Martina Rupert PA Work Phone: [facility] 02-23-2025 09:32-0400 Body mass index (BMI) [Ratio] 40.74 kg/m2 Ranjit Robb DO Work Phone: [facility] 02-23-2025 09:32-0400 Body weight 114.49 kg Ranjit Robb DO Work Phone: [facility] 02-23-2025 09:32-0400 Diastolic blood pressure 72 mm[Hg] Ranjit Robb DO Work Phone: [facility] 02-23-2025 09:32-0400 Systolic blood pressure 118 mm[Hg] Ranjit Robb DO Work Phone: [facility] 02-16-2025 12:06-0400 Body mass index (BMI) [Ratio] 39.87 kg/m2 Martina Rupert PA Work Phone: [facility] 02-16-2025 12:06-0400 Body weight 112.04 kg Martina Rupert PA Work Phone: [facility] 02-16-2025 12:06-0400 Diastolic blood pressure 76 mm[Hg] Martina Rupert PA Work Phone: [facility] 02-16-2025 12:06-0400 Systolic blood pressure 108 mm[Hg] Martina SALAZAR Work Phone: [facility] 02-01-2025 13:50-0400 Body mass index (BMI) [Ratio] 39.62 kg/m2 Ranjit Robb DO Work Phone: [facility] 02-01-2025 13:50-0400 Body weight 111.36 kg Ranjit Robb DO Work Phone: [facility] 02-01-2025 13:50-0400 Diastolic blood pressure 80 mm[Hg] Ranjit Robb DO Work Phone: [facility] 02-01-2025 13:50-0400 Systolic blood pressure 120 mm[Hg] Ranjit Robb DO Work Phone: [facility] 01-18-2025 14:57-0400 Body mass index (BMI) [Ratio] 39.77 kg/m2 Martina SALAZAR Work Phone: [facility] 01-18-2025 14:57-0400 Body weight 111.75 kg Martina SALAZAR Work Phone: [facility] 01-18-2025 14:57-0400 Diastolic blood pressure 76 mm[Hg] Martina SALAZAR Work Phone: [facility] 01-18-2025 14:57-0400 Systolic blood pressure 110 mm[Hg] Martina SALAZAR Work Phone: [facility] 12-28-2024 14:40-0400 Body mass index (BMI) [Ratio] 39.87 kg/m2 Ranjit Robb DO Work Phone: [facility] 12-28-2024 14:40-0400 Body weight 112.04 kg Ranjit Robb DO Work Phone: [facility] 12-28-2024 14:40-0400 Diastolic blood pressure 80 mm[Hg] Ranjit Robb DO Work Phone: [facility] 12-28-2024 14:40-0400 Systolic blood pressure 108 mm[Hg] Ranjit Robb DO Work Phone: [facility] 11-30-2024 14:33-0400 Body mass index (BMI) [Ratio] 39.09 kg/m2 Ranjit Robb DO Work Phone: [facility] 11-30-2024 14:33-0400 Body weight 109.86 kg Ranjit Robb DO Work Phone: [facility] 11-30-2024 14:33-0400 Diastolic blood pressure 70 mm[Hg] Ranjit Robb DO Work Phone: [facility] 11-30-2024 14:33-0400 Systolic blood pressure 100 mm[Hg] Ranjit Robb DO Work Phone: [facility] 11-09-2024 12:56-0400 Body mass index (BMI) [Ratio] 39.4 kg/m2 Ranjit Robb DO Work Phone: [facility] 11-09-2024 12:56-0400 Body weight 110.73 kg Ranjit Robb DO Work Phone: [facility] 11-09-2024 12:56-0400 Diastolic blood pressure 70 mm[Hg] Ranjit Robb DO Work Phone: [facility] 11-09-2024 12:56-0400 Systolic blood pressure 110 mm[Hg] Ranjit Robb DO Work Phone: [facility] 11-08-2024 18:00-0400 Heart rate 70 /min Radha Whipple [facility] 11-08-2024 18:00-0400 Diastolic blood pressure 64 mm[Hg] Radha Whipple [facility] 11-08-2024 18:00-0400 Mean blood pressure 82 mm[Hg] Radha Whipple [facility] 11-08-2024 18:00-0400 Respiratory rate 20 /min Radha Whipple [facility] 11-08-2024 18:00-0400 Systolic blood pressure 117 mm[Hg] Radha Whipple [facility] 11-08-2024 17:00-0400 SaO2% (BldA) [Mass fraction] 96 % Radha Chaparroe [facility] 11-08-2024 17:00-0400 Heart rate 88 /min Radha Chaparroe [facility] 11-08-2024 17:00-0400 Diastolic blood pressure 74 mm[Hg] Radha Chaparroe [facility] 11-08-2024 17:00-0400 Mean blood pressure 89 mm[Hg] Radha Whipple [facility] 11-08-2024 17:00-0400 Systolic blood pressure 119 mm[Hg] Radha Whipple [facility] 11-08-2024 16:13-0400 Body temperature 97.52 [degF] Radha Whipple [facility] 11-08-2024 16:13-0400 bodymassindex 2.07 kg/m2 Radha Whipple [facility] Comment on above: Result Comment: ^~:!ZScore Source - [facility] 11-08-2024 16:13-0400 Diastolic blood pressure 90 mm[Hg] Radha Whipple [facility] 11-08-2024 16:13-0400 Heart rate 100 /min Radha Chaparroe [facility] 11-08-2024 16:13-0400 Height/Length Percentile 84.91 1 Radha Chaparroe [facility] Comment on above: Result Comment: ^~:!Percentile Source -[facility] 11-08-2024 16:13-0400 Height/Length Z-Score 1.03 1 Radha Chaparroe [facility] Comment on above: Result Comment: ^~:!ZScore [facility] 11-08-2024 16:13-0400 Respiratory rate 18 /min Radha Whipple [facility] 11-08-2024 16:13-0400 SaO2% (BldA) [Mass fraction] 96 % Radha Whipple [facility] 11-08-2024 16:13-0400 Systolic blood pressure 146 mm[Hg] Radha Whipple [facility] 11-08-2024 16:13-0400 weight 2.48 1 Radha Whipple [facility] Comment on above: Result Comment: ^~:!ZScore [facility] 11-08-2024 16:13-0400 Weight Percentile 99.34 % Radha Whipple [facility] Comment on above: Result Comment: ^~:!Percentile Source [facility] 11-02-2024 15:22-0400 Body mass index (BMI) [Ratio] 39.46 kg/m2 Martina Arrington PA Work Phone: [facility] 11-02-2024 15:22-0400 Body weight 110.9 kg Martina Arrington PA Work Phone: [facility] 11-02-2024 15:22-0400 Diastolic blood pressure 72 mm[Hg] Martina Arrington PA Work Phone: [facility] 11-02-2024 15:22-0400 Systolic blood pressure 108 mm[Hg] Martina Rupert PA Work Phone: [facility] 09-26-2024 10:41-0500 Body mass index (BMI) [Ratio] 39.54 kg/m2 Ranjit Robb DO Work Phone: [facility] 09-26-2024 10:41-0500 Body weight 111.13 kg Ranjit Robb DO Work Phone: [facility] 09-26-2024 10:41-0500 Diastolic blood pressure 60 mm[Hg] Ranjit Robb DO Work Phone: [facility] 09-26-2024 10:41-0500 Systolic blood pressure 100 mm[Hg] Ranjit Robb DO Work Phone: [facility] 09-09-2024 14:06-0500 Diastolic blood pressure 62 mm[Hg] Fredi Ellington MD Work Phone: [facility] 09-09-2024 14:06-0500 Heart rate 89 /min Fredi Ellington MD Work Phone: [facility] 09-09-2024 14:06-0500 Respiratory rate 18 /min Fredi Ellington MD Work Phone: [facility] 09-09-2024 14:06-0500 SaO2% (BldA) [Mass fraction] 99 % Fredi Ellington MD Work Phone: [facility] 09-09-2024 14:06-0500 Systolic blood pressure 116 mm[Hg] Fredi Ellington MD Work Phone: [facility] 09-09-2024 11:41-0500 Body height 170.18 cm Fredi Ellington MD Work Phone: [facility] 09-09-2024 11:41-0500 Body temperature 98.3 [degF] Fredi Ellington MD Work Phone: [facility] 09-09-2024 11:41-0500 Body weight 115.5 kg Fredi Ellington MD Work Phone: [facility] 08-25-2024 13:52-0500 Body mass index (BMI) [Ratio] 39.87 kg/m2 [facility] Nurse [facility] 08-25-2024 13:52-0500 Body weight 112.04 kg [facility] Nurse [facility] 08-21-2024 20:00-0500 Diastolic blood pressure 82 mm[Hg] [facility] 08-21-2024 20:00-0500 Mean blood pressure 104 mm[Hg] [facility] 08-21-2024 20:00-0500 Systolic blood pressure 147 mm[Hg] [facility] 08-21-2024 19:30-0500 Diastolic blood pressure 73 mm[Hg] [facility] 08-21-2024 19:30-0500 Mean blood pressure 96 mm[Hg] [facility] 08-21-2024 19:30-0500 Systolic blood pressure 142 mm[Hg] [facility] 08-21-2024 19:00-0500 Diastolic blood pressure 83 mm[Hg] [facility] 08-21-2024 19:00-0500 Heart rate 72 /min [facility] 08-21-2024 19:00-0500 Mean blood pressure 99 mm[Hg] [facility] 08-21-2024 19:00-0500 Systolic blood pressure 131 mm[Hg] [facility] 08-21-2024 18:30-0500 Heart rate 71 /min [facility] 08-21-2024 18:30-0500 Respiratory rate 16 /min [facility] 08-21-2024 18:30-0500 SaO2% (BldA) [Mass fraction] 100 % [facility] 08-21-2024 16:56-0500 Body temperature 98.24 [degF] [facility] 08-21-2024 16:56-0500 bodymassindex 2.09 kg/m2 [facility] Comment on above: [facility] 16:56-0500 Heart rate 81 /min [facility] 08-21-2024 16:56-0500 Height/Length Percentile 84.97 1 [facility] Comment on above: Result Comment: ^~:!Percentile Source [facility] 08-21-2024 16:56-0500 Height/Length Z-Score 1.04 1 [facility] Comment on above: Result Comment: [facility] 08-21-2024 16:56-0500 weight 2.47 1 [facility] Comment on above: Result Comment: ^[facility] 08-21-2024 16:56-0500 Weight Percentile 99.33 % [facility] Comment on above: Result Comment: ^~:!Percentile Source [facility] ^~:!Percentile [facility] 08-11-2024 16:12-0500 Body height 167.6 cm Peyton Riddler [employer] Work Phone: [facility] 08-11-2024 16:12-0500 Body mass index (BMI) [Ratio] 43.42 kg/m2 Peyton Daynamor [employer] Work Phone: [facility] 08-11-2024 16:12-0500 Body weight 122.02 kg Peyton Daynamor [employer] Work Phone: [facility] 08-11-2024 16:12-0500 Diastolic blood pressure 89 mm[Hg] Peyton Mcintoshmor [employer] Work Phone: [facility] 08-11-2024 16:12-0500 Heart rate 97 /min Peyton Daynamor [employer] Work Phone: [facility] 08-11-2024 16:12-0500 Systolic blood pressure 132 mm[Hg] Peyton Mcintoshmor [employer] Work Phone: [facility] 06-27-2024 00:48-0500 Diastolic blood pressure 106 mm[Hg] Han Bolaños [facility] 06-27-2024 00:48-0500 Heart rate 70 /min Han Miky [facility] 06-27-2024 00:48-0500 Respiratory rate 17 /min Han Miky [facility] 06-27-2024 00:48-0500 SaO2% (BldA) [Mass fraction] 96 % Han Miky [facility] 06-27-2024 00:48-0500 Systolic blood pressure 133 mm[Hg] Han Miky [facility] 06-26-2024 23:15-0500 Body temperature 98.6 [degF] Han Miky [facility] 06-26-2024 23:15-0500 bodymassindex 2.16 kg/m2 Han Miky [facility] Comment on above: Result Comment: ^~:!ZScore [facility] 06-26-2024 23:15-0500 Diastolic blood pressure 78 mm[Hg] Han Miky [facility] 06-26-2024 23:15-0500 Heart rate 89 /min Han Miky [facility] 06-26-2024 23:15-0500 Height/Length Percentile 85.02 1 Han Miky [facility] Comment on above: Result Comment: ^~:!Percentile Source -[facility] 06-26-2024 23:15-0500 Height/Length Z-Score 1.04 1 Han Miky [facility] Comment on above: Result Comment: ^~:!ZScore [facility] 06-26-2024 23:15-0500 Respiratory rate 18 /min Han Miky [facility] 06-26-2024 23:15-0500 SaO2% (BldA) [Mass fraction] 99 % Han Miky [facility] 06-26-2024 23:15-0500 Systolic blood pressure 117 mm[Hg] Han Miky [facility] 06-26-2024 23:15-0500 Weight Percentile 99.44 % Han Miky [facility] Comment on above: Result Comment: ^~:!Percentile Source [facility] 06-26-2024 23:15-0500 Weight Z-Score 2.54 1 Han Miky [facility] Comment on above: Result Comment: ^~:!ZScore [facility] 05-22-2024 21:52-0400 Body temperature 98.24 [degF] Han Miky [facility] 05-22-2024 21:52-0400 bodymassindex 2.17 kg/m2 Han Miky [facility] Comment on above: Result Comment: ^~:!ZScore [facility] 05-22-2024 21:52-0400 Diastolic blood pressure 98 mm[Hg] Han Miky [facility] 05-22-2024 21:52-0400 Heart rate 110 /min Han Miky [facility] 05-22-2024 21:52-0400 Height/Length Percentile 85.68 1 Han Miky [facility] Comment on above: Result Comment: ^~:!Percentile Source -[facility] 05-22-2024 21:52-0400 Height/Length Z-Score 1.07 1 Han Miyk [facility] Comment on above: Result Comment: ^~:!ZScore [facility] 05-22-2024 21:52-0400 Respiratory rate 16 /min Han Miky [facility] 05-22-2024 21:52-0400 SaO2% (BldA) [Mass fraction] 97 % Han Miky [facility] 05-22-2024 21:52-0400 Systolic blood pressure 160 mm[Hg] Han Miky [facility] 05-22-2024 21:52-0400 Weight Percentile 99.44 % Han Bolaños [facility] Comment on above: Result Comment: ^~:!Percentile Source -[facility] 05-22-2024 21:52-0400 Weight Z-Score 2.54 1 Han Bolaños [facility] Comment on above: Result Comment: ^~:!ZScore [facility] 04-25-2024 13:15-0400 Blood Pressure Location Zenon Simonli [facility] 04-25-2024 13:15-0400 bodymassindex 2.16 kg/m2 Ritubrenda Aurorali [facility] Comment on above: Result Comment: ^~:!ZScore [facility] 04-25-2024 13:15-0400 Diastolic blood pressure 82 mm[Hg] Ritubrenda Carrillonandoli [facility] 04-25-2024 13:15-0400 Heart rate 67 /min Ritud Carrillouchli [facility] 04-25-2024 13:15-0400 Height/Length Percentile 85.07 1 Ritud Carrillouchli [facility] Comment on above: Result Comment: ^~:!Percentile Source -[facility] 04-25-2024 13:15-0400 Height/Length Z-Score 1.04 1 Mohamad Mouchli [facility] Comment on above: Result Comment: ^~:!ZScore [facility] 04-25-2024 13:15-0400 Respiratory rate 16 /min Zenon Hernandez [facility] 04-25-2024 13:15-0400 Systolic blood pressure 115 mm[Hg] Zenon Hernandez [facility] 04-25-2024 13:15-0400 Weight Percentile 99.41 % Zenon Hernandez [facility] Comment on above: Result Comment: ^~:!Percentile [facility] 04-25-2024 13:15-0400 Weight Z-Score 2.52 1 Zenon Hernandez [facility] Comment on above: Result Comment: [facility] 04-14-2024 20:04-0400 Body temperature 97.88 [degF] [facility] 04-14-2024 20:04-0400 bodymassindex 2.2 kg/m2 [facility] Comment on above: Result Comment: [facility] 04-14-2024 20:04-0400 Diastolic blood pressure 86 mm[Hg] [facility] 04-14-2024 20:04-0400 Heart rate 99 /min [facility] 04-14-2024 20:04-0400 Height/Length Percentile 85.07 1 [facility] Comment on above: Result Comment: ^~:!Percentile Source [facility] 04-14-2024 20:04-0400 Height/Length Z-Score 1.04 1 [facility] Comment on above: Result Comment: ^~:!ZScore [facility] 04-14-2024 20:04-0400 Respiratory rate 18 /min [facility] 04-14-2024 20:04-0400 SaO2% (BldA) [Mass fraction] 94 % [facility] 04-14-2024 20:04-0400 Systolic blood pressure 153 mm[Hg] [facility] 04-14-2024 20:04-0400 Weight Percentile 99.48 % [facility] Comment on above: Result Comment: ^~:!Percentile Source -[facility] 04-14-2024 20:04-0400 Weight Z-Score 2.57 1 [facility] Comment on above: Result Comment: ^~:!ZScore Source -[facility] 04-10-2024 06:16-0400 Diastolic blood pressure 98 mm[Hg] Kaylinn Dokken [facility] 04-10-2024 06:16-0400 Heart rate 84 /min Kaylinn Dokken [facility] 04-10-2024 06:16-0400 Mean blood pressure 106 mm[Hg] Kaylinn Dokken [facility] 04-10-2024 06:16-0400 SaO2% (BldA) [Mass fraction] 99 % Kaylinn Dokken [facility] 04-10-2024 06:16-0400 Systolic blood pressure 122 mm[Hg] Kaylinn Dokken [facility] 04-10-2024 06:09-0400 Heart rate 85 /min Kaylinn Dokken [facility] 04-10-2024 06:09-0400 SaO2% (BldA) [Mass fraction] 99 % Kaylinn Dokken [facility] 04-10-2024 04:33-0400 Body temperature 98.24 [degF] Kaylinn Dokken [facility] 04-10-2024 04:33-0400 bodymassindex 2.19 kg/m2 Rockyylinn Dokken [facility] Comment on above: Result Comment: [facility]-2024 04:33-0400 Diastolic blood pressure 73 mm[Hg] Rockyylinn Dokken [facility] 04-10-2024 04:33-0400 Heart rate 103 /min Rockyylinn Dokken [facility] 04-10-2024 04:33-0400 Height/Length Percentile 85.07 1 Rockyylinn Dokken [facility] Comment on above: Result Comment: ^~:!Percentile Source -[facility] 04-10-2024 04:33-0400 Height/Length Z-Score 1.04 1 Alexinn Dokken [facility] Comment on above: Result Comment: [facility] 04-10-2024 04:33-0400 Respiratory rate 16 /min Alexinn Dokken [facility] 04-10-2024 04:33-0400 SaO2% (BldA) [Mass fraction] 97 % Rockyylinn Dokken [facility] 04-10-2024 04:33-0400 Systolic blood pressure 116 mm[Hg] Rockyylinn Dokken [facility] 04-10-2024 04:33-0400 Weight Percentile 99.46 % Rockyylinn Dokken [facility] Comment on above: Result Comment: ^~:!Percentile Source -[facility] 04-10-2024 04:33-0400 Weight Z-Score 2.55 1 Ko Draper [facility] Comment on above: Result Comment: ^~:!ZSrolanda [facility] 03-15-2024 01:00-0400 Diastolic blood pressure 98 mm[Hg] Han Miky [facility] 03-15-2024 01:00-0400 Heart rate 68 /min Han Miky [facility] 03-15-2024 01:00-0400 Mean blood pressure 114 mm[Hg] Han Miky [facility] 03-15-2024 01:00-0400 Respiratory rate 18 /min Han Miky [facility] 03-15-2024 01:00-0400 SaO2% (BldA) [Mass fraction] 100 % Han Miky [facility] 03-15-2024 01:00-0400 Systolic blood pressure 145 mm[Hg] Han Miky [facility] 03-15-2024 00:00-0400 Diastolic blood pressure 88 mm[Hg] Han Miky [facility] 03-15-2024 00:00-0400 Heart rate 80 /min Han Miky [facility] 03-15-2024 00:00-0400 Mean blood pressure 103 mm[Hg] Han Miky [facility] 03-15-2024 00:00-0400 Respiratory rate 11 /min Han Miky [facility] 03-15-2024 00:00-0400 SaO2% (BldA) [Mass fraction] 98 % Han Miky [facility] 03-15-2024 00:00-0400 Systolic blood pressure 133 mm[Hg] Han Miky [facility] 03-14-2024 23:00-0400 Diastolic blood pressure 62 mm[Hg] Han Miky [facility] 03-14-2024 23:00-0400 Heart rate 75 /min Han Miky [facility] 03-14-2024 23:00-0400 Mean blood pressure 79 mm[Hg] Han Miky [facility] 03-14-2024 23:00-0400 Respiratory rate 20 /min Han Miky [facility] 03-14-2024 23:00-0400 SaO2% (BldA) [Mass fraction] 97 % Han Miky [facility] 03-14-2024 23:00-0400 Systolic blood pressure 113 mm[Hg] Han Miky [facility] 03-14-2024 21:40-0400 Body temperature 97.88 [degF] Han Miky [facility] 03-14-2024 21:40-0400 bodymassindex 2.2 kg/m2 Han Miky [facility] Comment on above: Result Comment: ^~:!ZScore Source -[facility] 03-14-2024 21:40-0400 Heart rate 92 /min Han Miky [facility] 03-14-2024 21:40-0400 Height/Length Percentile 85.45 1 Han Miky [facility] Comment on above: Result Comment: ^~:!Percentile Source -[facility] 03-14-2024 21:40-0400 Height/Length Z-Score 1.06 1 Han Miky [facility] Comment on above: Result Comment: ^~:!ZScore [facility] 03-14-2024 21:40-0400 Respiratory rate 16 /min Han Miky [facility] 03-14-2024 21:40-0400 Weight Percentile 99.46 % Han Miky [facility] Comment on above: Result Comment: ^~:!Percentile Source -[facility] 03-14-2024 21:40-0400 Weight Z-Score 2.55 1 Han Miky [facility] Comment on above: Result Comment: ^~:!ZScore [facility] 02-09-2024 14:30-0400 Blood Pressure Location Radha Steeny [facility] [place] 02-09-2024 14:30-0400 bodymassindex 2.26 kg/m2 Radha Steeny [facility] Comment on above: Result Comment: ^~:!ZScore [facility] 02-09-2024 14:30-0400 Diastolic blood pressure 80 mm[Hg] Radha Vizcainourany [facility] 02-09-2024 14:30-0400 Heart rate 92 /min Radha Vizcainourany [facility] [place] 02-09-2024 14:30-0400 Height/Length Percentile 60.56 1 Radha Mourany [facility] Comment on above: Result Comment: ^~:!Percentile Source -[facility] 02-09-2024 14:30-0400 Height/Length Z-Score 0.27 1 Radha Mourany [facility] [place] Comment on above: Result Comment: ^~:!ZScore [facility] 02-09-2024 14:30-0400 Systolic blood pressure 110 mm[Hg] Radha Cantor [facility] [place] 02-09-2024 14:30-0400 Weight Percentile 99.39 % Radha Cantor [facility] Comment on above: Result Comment: ^~:!Percentile Source -C MD 02-09-2024 14:30-0400 Weight Z-Score 2.51 1 Radha Cantor [facility] Comment on above: Result Comment: ^~:!ZScore [facility] 01-22-2024 09:44-0400 Blood Pressure Location Xcaliagray Simonli [facility] 01-22-2024 09:44-0400 bodymassindex 2.28 kg/m2 Mohgray Mouchli [facility] Comment on above: Result Comment: ^~:!ZScore [facility] 01-22-2024 09:44-0400 Diastolic blood pressure 78 mm[Hg] Ritud Mouchli [facility] 01-22-2024 09:44-0400 Heart rate 94 /min Mohashleyd Mouchli [facility] 01-22-2024 09:44-0400 Height/Length Percentile 60.60 1 Mohamad Mouchli [facility] Comment on above: Result Comment: ^~:!Percentile Source -C MD 01-22-2024 09:44-0400 Height/Length Z-Score 0.27 1 Mohamad Mouchli [facility] Comment on above: Result Comment: ^~:!ZScore [facility] 01-22-2024 09:44-0400 Respiratory rate 16 /min Zenon Hernandez [facility] 01-22-2024 09:44-0400 Systolic blood pressure 111 mm[Hg] Zenon Simonli [facility] 01-22-2024 09:44-0400 Weight Percentile 99.42 % Zenon Hernandez [facility] Comment on above: Result Comment: ^~:!Percentile Source -[facility] 01-22-2024 09:44-0400 Weight Z-Score 2.52 1 Zenon Hernandez [facility] Comment on above: Result Comment: ^~:!ZScore Source [facility] 01-13-2024 21:06-0400 Body temperature 98.06 [degF] [facility] 01-13-2024 21:06-0400 Diastolic blood pressure 93 mm[Hg] [facility] 01-13-2024 21:06-0400 Heart rate 71 /min [facility] 01-13-2024 21:06-0400 Mean blood pressure 105 mm[Hg] [facility] 01-13-2024 21:06-0400 Respiratory rate 18 /min [facility] 01-13-2024 21:06-0400 SaO2% (BldA) [Mass fraction] 96 % [facility] 01-13-2024 21:06-0400 Systolic blood pressure 130 mm[Hg] [facility] 01-13-2024 20:40-0400 Diastolic blood pressure 90 mm[Hg] [facility] 01-13-2024 20:40-0400 Heart rate 74 /min [facility] 01-13-2024 20:40-0400 Mean blood pressure 112 mm[Hg] [facility] 01-13-2024 20:40-0400 Systolic blood pressure 156 mm[Hg] [facility] 01-13-2024 19:43-0400 Diastolic blood pressure 84 mm[Hg] [facility] 01-13-2024 19:43-0400 Heart rate 76 /min [facility] 01-13-2024 19:43-0400 Mean blood pressure 100 mm[Hg] [facility] 01-13-2024 19:43-0400 Respiratory rate 18 /min [facility] 01-13-2024 19:43-0400 SaO2% (BldA) [Mass fraction] 97 % [facility] 01-13-2024 19:43-0400 Systolic blood pressure 131 mm[Hg] [facility] 01-13-2024 19:01-0400 Respiratory rate 16 /min [facility] 01-13-2024 19:01-0400 SaO2% (BldA) [Mass fraction] 97 % [facility] 01-13-2024 18:29-0400 Body temperature 98.42 [degF] [facility] 01-13-2024 18:29-0400 bodymassindex 2.3 kg/m2 [facility] Comment on above: [facility] 18:29-0400 Heart rate 75 /min [facility] 01-13-2024 18:29-0400 Height/Length Percentile 61.20 1 [facility] Comment on above: Result Comment: ^~:!Percentile [facility] 01-13-2024 18:29-0400 Height/Length Z-Score 0.28 1 [facility] Comment on above: Result Comment: ^~:!ZScore [facility] 01-13-2024 18:29-0400 Weight Percentile 99.46 % [facility] Comment on above: Result Comment: ^~:!Percentile Source -[facility] 01-13-2024 18:29-0400 Weight Z-Score 2.55 1 [facility] Comment on above: Result Comment: ^~:!ZScore Source -[facility] 01-12-2024 17:20-0400 Diastolic blood pressure 91 mm[Hg] Radha Sole [facility] 01-12-2024 17:20-0400 Heart rate 74 /min Radha Sole [facility] 01-12-2024 17:20-0400 Mean blood pressure 108 mm[Hg] Radha Sole [facility] 01-12-2024 17:20-0400 Respiratory rate 16 /min Radha Sole [facility] 01-12-2024 17:20-0400 SaO2% (BldA) [Mass fraction] 100 % Radha Sole [facility] 01-12-2024 17:20-0400 Systolic blood pressure 143 mm[Hg] Radha Sole [facility] 01-12-2024 16:59-0400 Blood Pressure Location Radha Sole [facility] 01-12-2024 16:59-0400 Diastolic blood pressure 91 mm[Hg] Radha Sole [facility] 01-12-2024 16:59-0400 Heart rate 82 /min Radha Sole [facility] 01-12-2024 16:59-0400 Mean blood pressure 108 mm[Hg] Radha Sole [facility] 01-12-2024 16:59-0400 Respiratory rate 16 /min Radha Sole [facility] 01-12-2024 16:59-0400 SaO2% (BldA) [Mass fraction] 100 % Radha Chaparroe [facility] 01-12-2024 16:59-0400 Systolic blood pressure 143 mm[Hg] Radha Chaparroe [facility] 01-12-2024 14:56-0400 Body temperature 98.6 [degF] Radha Chaparroe [facility] 01-12-2024 14:56-0400 bodymassindex 2.3 kg/m2 Radha Chaparroe [facility] Comment on above: Result Comment: ^~:!ZScore [facility] 01-12-2024 14:56-0400 Diastolic blood pressure 86 mm[Hg] Radha Whipple [facility] 01-12-2024 14:56-0400 Heart rate 93 /min Radha Whipple [facility] 01-12-2024 14:56-0400 Height/Length Percentile 61.20 1 Radha Whipple [facility] Comment on above: Result Comment: ^~:!Percentile Source [facility] 01-12-2024 14:56-0400 Height/Length Z-Score 0.28 1 Radha Whipple [facility] Comment on above: Result Comment: ^~:!ZScore [facility] 01-12-2024 14:56-0400 Respiratory rate 18 /min Radha Whipple [facility] 01-12-2024 14:56-0400 SaO2% (BldA) [Mass fraction] 99 % Radha Whipple [facility] 01-12-2024 14:56-0400 Systolic blood pressure 135 mm[Hg] Radha Chaparroe [facility] 01-12-2024 14:56-0400 Weight Percentile 99.46 % Radha Whipple [facility] Comment on above: Result Comment: ^~:!Percentile Source -[facility] 01-12-2024 14:56-0400 Weight Z-Score 2.55 1 Radha Whipple [facility] Comment on above: Result Comment: ^~:!ZScore Source [facility] 06-30-2023 13:40-0500 Body height 165.1 cm Valorie Hansen MD Work Phone: [facility] 06-30-2023 13:40-0500 Body mass index (BMI) [Percentile] Per age and sex 99.59 % Valorie Hansen MD Work Phone: [facility] 06-30-2023 13:40-0500 Body mass index (BMI) [Ratio] 43.4 kg/m2 Valorie Hansen MD Work Phone: [facility] 06-30-2023 13:40-0500 Body weight 118.3 kg Valorie Hansen MD Work Phone: [facility] 06-30-2023 13:40-0500 Respiratory rate 16 /min Valorie Hansen MD Work Phone: [facility] 05-13-2023 13:00-0400 Hourly Rounding Hasan AMIR [facility] 05-13-2023 13:00-0400 Promise to Return Hasan AMIR [facility] 05-13-2023 12:00-0400 Body temperature 98.24 [degF] Hasan AMIR [facility] 05-13-2023 12:00-0400 Diastolic blood pressure 84 mm[Hg] Hasan AMIR [facility] 05-13-2023 12:00-0400 Heart rate 76 /min Hasan AMIR [facility] 05-13-2023 12:00-0400 Hourly Rounding Hasan AMIR [facility] 05-13-2023 12:00-0400 Mean blood pressure 93 mm[Hg] Hasan AMIR [facility] 05-13-2023 12:00-0400 Promise to Return Hasan AMIR [facility] 05-13-2023 12:00-0400 Respiratory rate 14 /min Hasan AMIR [facility] 05-13-2023 12:00-0400 SaO2% (BldA) [Mass fraction] 96 % Hasan AMIR [facility] 05-13-2023 12:00-0400 Systolic blood pressure 112 mm[Hg] Hasan AMIR [facility] 05-13-2023 11:00-0400 Diastolic blood pressure 71 mm[Hg] Hasan AMIR [facility] 05-13-2023 11:00-0400 Heart rate 90 /min Hasan AMIR [facility] 05-13-2023 11:00-0400 Hourly Rounding Hasan AMIR [facility] 05-13-2023 11:00-0400 Mean blood pressure 84 mm[Hg] Hasan AMIR [facility] 05-13-2023 11:00-0400 Promise to Return Hasan AMIR [facility] 05-13-2023 11:00-0400 Respiratory rate 13 /min Hasan AMIR [facility] 05-13-2023 11:00-0400 SaO2% (BldA) [Mass fraction] 97 % Hasan AMIR [facility] 05-13-2023 11:00-0400 Systolic blood pressure 111 mm[Hg] Hasan AMIR [facility] 05-13-2023 10:00-0400 Diastolic blood pressure 86 mm[Hg] Hasan AMIR [facility] 05-13-2023 10:00-0400 Heart rate 75 /min Hasan AMIR [facility] 05-13-2023 10:00-0400 Mean blood pressure 97 mm[Hg] Hasan AMIR [facility] 05-13-2023 10:00-0400 Systolic blood pressure 119 mm[Hg] Hasan AMIR [facility] 05-13-2023 08:00-0400 Body temperature 98.78 [degF] Hasan AMIR [facility] 05-13-2023 06:00-0400 Blood Pressure Location Hasan AMIR [facility] 05-13-2023 05:27-0400 weight 2.47 1 Hasan AMIR [facility] Comment on above: Result Comment: ^~:!ZScore Source -[facility] 05-13-2023 05:27-0400 Weight Percentile 99.33 % Hasan AMIR [facility] Comment on above: Result Comment: ^~:!Percentile Source -[facility] 05-13-2023 04:00-0400 Body temperature 97.88 [degF] Hasan AMIR [facility] 05-12-2023 09:00-0400 weight 2.48 1 Hasan AMIR [facility] Comment on above: Result Comment: ^~:!ZScore Source [facility] 05-12-2023 09:00-0400 Weight Percentile 99.34 % Hasan AMIR [facility] Comment on above: Result Comment: ^~:!Percentile Source -[facility] 05-12-2023 06:18-0400 weight 2.46 1 Hasan AMIR [facility] Comment on above: Result Comment: ^~:!ZScore Source -CDC ^~:!ZScore Source [facility] 05-12-2023 06:18-0400 Weight Percentile 99.30 % Hasan AMIR [facility] Comment on above: Result Comment: ^~:!Percentile Source -[facility] ^~:!Percentile Source [facility] 05-11-2023 20:00-0400 Body temperature 97.88 [degF] Hasan AMIR [facility] 05-11-2023 08:01-0400 bodymassindex 2.34 kg/m2 Hasan AMIR [facility] Comment on above: Result Comment: ^~:!ZScore Source -[facility] 05-11-2023 08:01-0400 Height/Length Percentile 61.66 1 Hasan AMIR [facility] Comment on above: Result Comment: ^~:!Percentile Source -[facility] 05-11-2023 08:01-0400 Height/Length Z-Score 0.30 1 Hasan AMIR [facility] Comment on above: Result Comment: [facility] 05-11-2023 07:58-0400 bodymassindex 2.34 kg/m2 Hasan AMIR [facility] Comment on above: [facility]: [facility]-11-[facility] 07:58-0400 Height/Length Percentile 61.66 1 Hasarchana AMIR [facility] Comment on above: Result Comment: ^~:!Percentile Source -[facility] 05-11-2023 07:58-0400 Height/Length Z-Score 0.30 1 Hasarchana AMIR [facility] Comment on above: Result Comment: [facility] 03-16-2023 17:47-0400 Diastolic blood pressure 80 mm[Hg] Radha Whipple [facility] 03-16-2023 17:47-0400 Heart rate 84 /min Radha Whipple [facility] 03-16-2023 17:47-0400 Respiratory rate 17 /min Radha Whipple [facility] 03-16-2023 17:47-0400 SaO2% (BldA) [Mass fraction] 99 % Radha Whipple [facility] 03-16-2023 17:47-0400 Systolic blood pressure 133 mm[Hg] Radha Whipple [facility] 03-16-2023 16:52-0400 Body temperature 98.42 [degF] Radha Whipple [facility] 03-16-2023 16:52-0400 bodymassindex 2.36 Radha Whipple [facility] Comment on above: Result Comment: ^[facility] 03-16-2023 16:52-0400 Diastolic blood pressure 92 mm[Hg] Radha Whipple [facility] 03-16-2023 16:52-0400 Heart rate 104 /min Radha Whipple [facility] 03-16-2023 16:52-0400 Height/Length Percentile 61.80 Radha Chaparroe [facility] Comment on above: Result Comment: ^~:!Percentile Source -[facility] 03-16-2023 16:52-0400 Height/Length Z-Score 0.30 Radha Whipple [facility] Comment on above: Result Comment: ^[facility] 03-16-2023 16:52-0400 Respiratory rate 17 /min Radha Whipple [facility] 03-16-2023 16:52-0400 SaO2% (BldA) [Mass fraction] 98 % Radha Whipple [facility] 03-16-2023 16:52-0400 Systolic blood pressure 118 mm[Hg] Radha Whipple [facility] 03-16-2023 16:52-0400 weight 2.52 Radha Whipple [facility] Comment on above: Result Comment: ^~:![facility] 03-16-2023 16:52-0400 Weight Percentile 99.41 % Radha Whipple [facility] Comment on above: Result Comment: ^~:!Percentile Source -C MD 03-13-2023 07:30-0400 Body temperature 98.1 [degF] MD Fredi Ellington Work Phone: [facility] 03-13-2023 07:30-0400 Diastolic blood pressure 65 mm[Hg] MD Fredi Ellington Work Phone: [facility] 03-13-2023 07:30-0400 Heart rate 60 /min MD Fredi Ellington Work Phone: [facility] 03-13-2023 07:30-0400 Respiratory rate 16 /min MD Fredi Ellington Work Phone: [facility] 03-13-2023 07:30-0400 SaO2% (BldA) [Mass fraction] 95 % MD Fredi Ellington Work Phone: [facility] 03-13-2023 07:30-0400 Systolic blood pressure 97 mm[Hg] MD Fredi Ellington Work Phone: [facility] 03-11-2023 15:15-0400 Body height 165.1 cm MD Fredi Ellington Work Phone: [facility] 03-10-2023 15:55-0400 Body weight 113.39 kg MD Fredi Ellington Work Phone: [facility] 03-10-2023 13:00-0400 Hourly Rounding Orlando Paster [facility] 03-10-2023 13:00-0400 Promise to Return Orlando Paster [facility] 03-10-2023 12:28-0400 Hourly Rounding Orlando Paster [facility] 03-10-2023 12:28-0400 Promise to Return Orlando Paster [facility] 03-10-2023 11:00-0400 Blood Pressure Location Orlando Paster [facility] 03-10-2023 11:00-0400 Body temperature 98.06 [degF] Orlando Paster [facility] 03-10-2023 11:00-0400 Diastolic blood pressure 73 mm[Hg] Orlando Paster [facility] 03-10-2023 11:00-0400 Heart rate 91 /min Orlando Paster [facility] 03-10-2023 11:00-0400 Hourly Rounding Orlando Paster [facility] 03-10-2023 11:00-0400 Mean blood pressure 85 mm[Hg] Orlando Paster [facility] 03-10-2023 11:00-0400 Promise to Return Orlando Paster [facility] 03-10-2023 11:00-0400 Respiratory rate 16 /min Orlando Paster [facility] 03-10-2023 11:00-0400 SaO2% (BldA) [Mass fraction] 97 % Orlando Paster [facility] 03-10-2023 11:00-0400 Systolic blood pressure 109 mm[Hg] Orlando Paster [facility] 03-10-2023 07:00-0400 Body temperature 97.88 [degF] Orlando Paster [facility] 03-10-2023 07:00-0400 Diastolic blood pressure 72 mm[Hg] Orlando Paster [facility] 03-10-2023 07:00-0400 Heart rate 87 /min Orlando Paster [facility] 03-10-2023 07:00-0400 Mean blood pressure 86 mm[Hg] Orlando Paster [facility] 03-10-2023 07:00-0400 Respiratory rate 18 /min Orlando Paster [facility] 03-10-2023 07:00-0400 SaO2% (BldA) [Mass fraction] 96 % Orlando Paster [facility] 03-10-2023 07:00-0400 Systolic blood pressure 115 mm[Hg] Orlando Paster [facility] 03-10-2023 05:04-0400 weight 2.52 Orlando Paster [facility] Comment on above: Result Comment: ^~:!ZScore [facility] 03-10-2023 05:04-0400 Weight Percentile 99.41 % Orlando Paster [facility] Comment on above: Result Comment: ^~:!Percentile Source -[facility] 03-10-2023 00:14-0400 Blood Pressure Location Orlando Paster [facility] 03-10-2023 00:14-0400 Body temperature 98.06 [degF] Orlando Paster [facility] 03-10-2023 00:14-0400 Diastolic blood pressure 74 mm[Hg] Orlando Paster [facility] 03-10-2023 00:14-0400 Heart rate 79 /min Orlando Paster [facility] 03-10-2023 00:14-0400 Mean blood pressure 89 mm[Hg] Orlando Paster [facility] 03-10-2023 00:14-0400 Respiratory rate 16 /min Orlando Paster [facility] 03-10-2023 00:14-0400 Systolic blood pressure 118 mm[Hg] Orlando Paster [facility] 03-09-2023 19:28-0400 SaO2% (BldA) [Mass fraction] 95 % Orlando Paster [facility] 03-09-2023 19:28-0400 Mean blood pressure 91 mm[Hg] Orlando Paster [facility] 03-09-2023 19:27-0400 Body temperature 98.06 [degF] Orlando Paster [facility] 03-09-2023 12:39-0400 weight 2.44 Orlando Paster [facility] Comment on above: Result Comment: ^~:!ZScore [facility] 03-09-2023 12:39-0400 Weight Percentile 99.26 % Orlando Paster [facility] Comment on above: Result Comment: ^~:!Percentile Source -C [facility] 03-08-2023 10:57-0400 Body temperature 97.88 [degF] Orlando Paster [facility] 03-08-2023 10:56-0400 Mean blood pressure 89 mm[Hg] Orlando Paster [facility] 03-08-2023 07:28-0400 Mean blood pressure 97 mm[Hg] Orladno Paster [facility] 03-08-2023 07:28-0400 Heart rate 81 /min Orlando Paster [facility] 03-08-2023 07:28-0400 Respiratory rate 21 /min Orlando Paster [facility] 03-08-2023 06:49-0400 weight 2.80 Orlando Paster [facility] Comment on above: Result Comment: ^~:!Debbie [facility] 03-08-2023 06:49-0400 Weight Percentile 99.74 % Orlando Paster [facility] Comment on above: Result Comment: ^~:!Percentile Source -[facility] 03-07-2023 23:48-0400 Respiratory rate 18 /min Orlando Paster [facility] 03-07-2023 20:57-0400 Respiratory rate 18 /min Olrando Paster [facility] 03-07-2023 20:02-0400 bodymassindex 2.58 Orlando Paster [facility] Comment on above: Result Comment: [facility]-07-[facility] 20:02-0400 Height/Length Percentile 61.80 Orlando Paster [facility] Comment on above: Result Comment: ^~:!Percentile Source -[facility] 03-07-2023 20:02-0400 Height/Length Z-Score 0.30 Orlando Paster [facility] Comment on above: Result Comment: ^~:!ZScore [facility] 03-07-2023 18:52-0400 bodymassindex 2.58 Orlando Paster [facility] Comment on above: Result Comment: ^~:!ZScore [facility] 03-07-2023 18:52-0400 Heart rate 91 /min Orlando Paster [facility] 03-07-2023 18:52-0400 Height/Length Percentile 61.80 Orlando Paster [facility] Comment on above: Result Comment: ^~:!Percentile Source -C MD 03-07-2023 18:52-0400 Height/Length Z-Score 0.30 Orlando Paster [facility] Comment on above: Result Comment: ^~:!ZScore [facility] 03-07-2023 14:11-0400 bodymassindex 2.33 Orlando Paster [facility] Comment on above: Result Comment: ^~:!ZScore [facility] 03-07-2023 14:11-0400 Heart rate 105 /min Orlando Paster [facility] 03-07-2023 14:11-0400 Height/Length Percentile 61.21 Orlando Paster [facility] Comment on above: Result Comment: ^~:!Percentile Source -C MD 03-07-2023 14:11-0400 Height/Length Z-Score 0.28 Orlando Paster [facility] Comment on above: Result Comment: ^~:!ZScore [facility] 11-13-2022 13:56-0400 Body temperature 98.06 [degF] Wilfredo Villareal [facility] 11-13-2022 13:56-0400 bodymassindex 2.31 Wilfredo Villareal [facility] Comment on above: Result Comment: ^~:![employer] [facility] 11-13-2022 13:56-0400 Diastolic blood pressure 85 mm[Hg] Wilfredo [facility] 11-13-2022 13:56-0400 Heart rate 94 /min Wilfredo [facility] 11-13-2022 13:56-0400 Height/Length Percentile 61.53 Wilfredo [facility] Comment on above: Result Comment: ^~:!Percentile Source -[employer] MD 11-13-2022 13:56-0400 Height/Length Z-Score 0.29 Wilfredo [facility] Comment on above: Result Comment: ^~:![employer] [facility] 11-13-2022 13:56-0400 Respiratory rate 16 /min Wilfredo [facility] 11-13-2022 13:56-0400 SaO2% (BldA) [Mass fraction] 97 % Wilfredo [facility] 11-13-2022 13:56-0400 Systolic blood pressure 135 mm[Hg] Wilfredo [facility] 11-13-2022 13:56-0400 weight 2.42 Wilfredo [facility] Comment on above: Result Comment: ^~:![employer] [facility] 11-13-2022 13:56-0400 Weight Percentile 99.23 % Wilfredo [facility] Comment on above: Result Comment: ^~:!Percentile Source -[facility] 10-11-2022 01:10-0500 Diastolic blood pressure 74 mm[Hg] Kaylinn [facility] 10-11-2022 01:10-0500 Heart rate 85 /min Kaylinn [facility] 10-11-2022 01:10-0500 Respiratory rate 12 /min Kaylinn Dokken [facility] 10-11-2022 01:10-0500 SaO2% (BldA) [Mass fraction] 98 % Kaylinn Dokken [facility] 10-11-2022 01:10-0500 Systolic blood pressure 118 mm[Hg] Kaylinn Dokken [facility] 10-11-2022 00:04-0500 Diastolic blood pressure 74 mm[Hg] Kaylinn Dokken [facility] 10-11-2022 00:04-0500 Heart rate 74 /min Kaylinn Dokken [facility] 10-11-2022 00:04-0500 Respiratory rate 12 /min Kaylinn Dokken [facility] 10-11-2022 00:04-0500 SaO2% (BldA) [Mass fraction] 97 % Kaylinn [facility] 10-11-2022 00:04-0500 Systolic blood pressure 101 mm[Hg] Kaylinn [facility] 10-10-2022 23:00-0500 Diastolic blood pressure 85 mm[Hg] Kaylinn [facility] 10-10-2022 23:00-0500 Heart rate 87 /min Kaylinn Dokken [facility] 10-10-2022 23:00-0500 Mean blood pressure 92 mm[Hg] Kaylinn D[facility] 10-10-2022 23:00-0500 Respiratory rate 20 /min Kaylinn Dok[facility] 10-10-2022 23:00-0500 Systolic blood pressure 105 mm[Hg] Rockyylinn Dokken [facility] 10-10-2022 21:54-0500 Body temperature 98.42 [degF] Rockyylinn Dokken [facility] 10-10-2022 21:54-0500 bodymassindex 2.32 Kaylinn Dokken [facility] Comment on above: Result Comment: ^~:![facility] 10-10-2022 21:54-0500 Height/Length Percentile 62.20 Kaylinn Dokken [facility] Comment on above: Result Comment: ^~:![facility] 10-10-2022 21:54-0500 Height/Length Z-Score 0.31 Rockyylinn Dokken [facility] Comment on above: [facility]: [facility] 10-10-2022 21:54-0500 Respiratory rate 15 /min Rockyylinn Dokken [facility] 10-10-2022 21:54-0500 weight 2.43 Kaylinn Dokken [facility] Comment on above: Result Comment: [facility] 10-10-2022 21:54-0500 Weight Percentile 99.24 % Kaylinn Dokken [facility] Comment on above: Result Comment: ^~:!Percentile Source -[facility] 10-06-2022 14:00-0500 Diastolic blood pressure 69 mm[Hg] Han Miky [facility] 10-06-2022 14:00-0500 Heart rate 79 /min Han Miky [facility] 10-06-2022 14:00-0500 Mean blood pressure 87 mm[Hg] Han [facility] 10-06-2022 14:00-0500 Respiratory rate 18 /min Han Miky [facility] 10-06-2022 14:00-0500 SaO2% (BldA) [Mass fraction] 95 % Han Miky [facility] 10-06-2022 14:00-0500 Systolic blood pressure 122 mm[Hg] Han Miky [facility] 10-06-2022 00:30-0500 Diastolic blood pressure 60 mm[Hg] Han Miky [facility] 10-06-2022 00:30-0500 Heart rate 88 /min Han Miky [facility] 10-06-2022 00:30-0500 Respiratory rate 18 /min Han Miky [facility] 10-06-2022 00:30-0500 SaO2% (BldA) [Mass fraction] 96 % Han Miky [facility] 10-06-2022 00:30-0500 Systolic blood pressure 102 mm[Hg] Han Miky [facility] 10-05-2022 23:51-0500 Body temperature 97.7 [degF] Han Miky [facility] 10-05-2022 23:51-0500 bodymassindex 2.34 Han Miky [facility] Comment on above: Result Comment: ^[facility] 10-05-2022 23:51-0500 Diastolic blood pressure 78 mm[Hg] Han Miky [facility] 10-05-2022 23:51-0500 Heart rate 89 /min Han Miky [facility] 10-05-2022 23:51-0500 Height/Length Percentile 61.61 Han Miky [facility] Comment on above: Result Comment: ^~:!Percentile [facility] 10-05-2022 23:51-0500 Height/Length Z-Score 0.30 Han Miky [facility] Comment on above: Result Comment: ^[facility] 10-05-2022 23:51-0500 Respiratory rate 18 /min Han Miky [facility] 10-05-2022 23:51-0500 SaO2% (BldA) [Mass fraction] 95 % Han Miky [facility] 10-05-2022 23:51-0500 Systolic blood pressure 171 mm[Hg] Han Miky [facility] 10-05-2022 23:51-0500 weight 2.45 Han Miky [facility] Comment on above: Result Comment: ^[facility] 10-05-2022 23:51-0500 Weight Percentile 99.29 % Han Miky [facility] Comment on above: Result Comment: ^~:!Percentile Source -[facility] MD 07-08-2022 22:00-0500 Body temperature 98.78 [degF] Kaylinn [facility] 07-08-2022 22:00-0500 Diastolic blood pressure 74 mm[Hg] Kaylinn [facility] 07-08-2022 22:00-0500 Heart rate 77 /min Kaylinn [facility] 07-08-2022 22:00-0500 Mean blood pressure 86 mm[Hg] Kaylinn Dok[facility] 07-08-2022 22:00-0500 Respiratory rate 12 /min Kaylinn Dokken [facility] 07-08-2022 22:00-0500 SaO2% (BldA) [Mass fraction] 97 % Kaylinn D[facility] 07-08-2022 22:00-0500 Systolic blood pressure 110 mm[Hg] Kaylinn [facility] 07-08-2022 21:44-0500 Body temperature 99.32 [degF] Kaylinn Dokken [facility] 07-08-2022 21:44-0500 Diastolic blood pressure 73 mm[Hg] Kaylinn Dokken [facility] 07-08-2022 21:44-0500 Heart rate 90 /min Kaylinn Dokken [facility] 07-08-2022 21:44-0500 Mean blood pressure 88 mm[Hg] Kaylinn Dokken [facility] 07-08-2022 21:44-0500 Respiratory rate 16 /min Kaylinn Dokken [facility] 07-08-2022 21:44-0500 SaO2% (BldA) [Mass fraction] 96 % Kaylinn Dokken [facility] 07-08-2022 21:44-0500 Systolic blood pressure 119 mm[Hg] Kaylinn Dokken [facility] 07-08-2022 21:00-0500 Diastolic blood pressure 67 mm[Hg] Kaylinn Dokken [facility] 07-08-2022 21:00-0500 Heart rate 80 /min Kaylinn Dokken [facility] 07-08-2022 21:00-0500 Mean blood pressure 83 mm[Hg] Kaylinn Dokken [facility] 07-08-2022 21:00-0500 SaO2% (BldA) [Mass fraction] 98 % Kaylinn Dokken [facility] 07-08-2022 21:00-0500 Systolic blood pressure 116 mm[Hg] Kaylinn Dok[facility] 07-08-2022 18:52-0500 Body temperature 100.04 [degF] Kaylinn [facility]ok[facility] 07-08-2022 18:52-0500 bodymassindex 2.38 Kaylinn [facility]okken [facility] Comment on above: Result Comment: ^[facility] 07-08-2022 18:52-0500 Heart rate 86 /min Kaylinn Dok[facility] 07-08-2022 18:52-0500 Height/Length Percentile 61.90 % Ko Draper [facility] Comment on above: Result Comment: ^~:!Percentile Source -[facility] 07-08-2022 18:52-0500 Height/Length Z-Score 0.30 Ko Draper [facility] Comment on above: Result Comment: ^~:![employer] [facility] 07-08-2022 18:52-0500 Respiratory rate 18 /min Ko Draper [facility] 07-08-2022 18:52-0500 weight 2.47 Ko Draper [facility] Comment on above: Result Comment: ^~:![employer] [facility] 07-08-2022 18:52-0500 Weight Percentile 99.33 % Ko Draper [facility] Comment on above: Result Comment: ^~:!Percentile Source -[facility] 07-04-2022 18:09-0500 Body temperature 98.06 [degF] Radha [facility] 07-04-2022 18:09-0500 bodymassindex 2.21 Radha [facility] Comment on above: Result Comment: ^~:![employer] [facility] 07-04-2022 18:09-0500 Diastolic blood pressure 83 mm[Hg] Radha [facility] 07-04-2022 18:09-0500 Heart rate 99 /min Radha [facility] 07-04-2022 18:09-0500 Height/Length Percentile 61.90 % Radha Wh[facility] Comment on above: Result Comment: ^~:!Percentile Source -[facility] 07-04-2022 18:09-0500 Height/Length Z-Score 0.30 Radha Wh[facility] Comment on above: Result Comment: ^~:![employer] [facility] 07-04-2022 18:09-0500 Respiratory rate 18 /min Radha [facility] 07-04-2022 18:09-0500 SaO2% (BldA) [Mass fraction] 97 % Radha Wh[facility] 07-04-2022 18:09-0500 Systolic blood pressure 121 mm[Hg] Radha Whipple [facility] 07-04-2022 18:09-0500 weight 2.29 Radha Whipple [facility] Comment on above: Result Comment: ^~:![employer] [facility] 07-04-2022 18:09-0500 Weight Percentile 98.88 % Radha Whipple [facility] Comment on above: Result Comment: ^~:!Percentile Source -[facility] 07-02-2022 16:02-0500 Diastolic blood pressure 64 mm[Hg] Wilfredo Mono [facility] 07-02-2022 16:02-0500 Heart rate 95 /min Wilfredo [facility] 07-02-2022 16:02-0500 Respiratory rate 18 /min Wilfredo [facility] 07-02-2022 16:02-0500 SaO2% (BldA) [Mass fraction] 95 % Wilfredo [facility] 07-02-2022 16:02-0500 Systolic blood pressure 108 mm[Hg] Wilfredo [facility] 07-02-2022 14:24-0500 Diastolic blood pressure 78 mm[Hg] Wilfredo [facility] 07-02-2022 14:24-0500 Heart rate 95 /min Wilfredo [facility] 07-02-2022 14:24-0500 Respiratory rate 18 /min Wilfredo [facility] 07-02-2022 14:24-0500 SaO2% (BldA) [Mass fraction] 96 % Wilfredo [facility] 07-02-2022 14:24-0500 Systolic blood pressure 137 mm[Hg] Wilfredo [facility] 07-02-2022 13:28-0500 Body temperature 98.06 [degF] Wilfredo [facility] 07-02-2022 13:28-0500 bodymassindex 2.21 Wilfredo [facility] Comment on above: Result Comment: ^~:![facility] 07-02-2022 13:28-0500 Diastolic blood pressure 74 mm[Hg] Wilfredo [facility] 07-02-2022 13:28-0500 Heart rate 108 /min Wilfredo [facility] 07-02-2022 13:28-0500 Height/Length Percentile 61.90 % Wilfredo [facility] Comment on above: Result Comment: ^~:!Percentile Source [facility] 07-02-2022 13:28-0500 Height/Length Z-Score 0.30 Wilfredo [facility] Comment on above: Result Comment: ^~:![facility] [facility] 07-02-2022 13:28-0500 Respiratory rate 18 /min Wilfredo [facility] 07-02-2022 13:28-0500 SaO2% (BldA) [Mass fraction] 98 % Wilfredo [facility] 07-02-2022 13:28-0500 Systolic blood pressure 130 mm[Hg] Wilfredo [facility] 07-02-2022 13:28-0500 weight 2.29 Wilfredo [facility] Comment on above: Result Comment: ^~:!ZScore Source -[facility] 07-02-2022 13:28-0500 Weight Percentile 98.88 % Wilfredo [facility] Comment on above: Result Comment: ^~:!Percentile Source -[facility] 12-05-2021 22:39-0400 Blood Pressure Location Wilfredo [facility] 12-05-2021 22:39-0400 Body temperature 98.42 [degF] Wilfredo [facility] 12-05-2021 22:39-0400 Diastolic blood pressure 98 mm[Hg] Wilfredo [facility] 12-05-2021 22:39-0400 Heart rate 114 /min Wilfredo [facility] 12-05-2021 22:39-0400 Mean blood pressure 110 mm[Hg] Wilfredo [facility] 12-05-2021 22:39-0400 Respiratory rate 16 /min Wilfredo [facility] 12-05-2021 22:39-0400 SaO2% (BldA) [Mass fraction] 95 % Wilfredo [facility] 12-05-2021 22:39-0400 Systolic blood pressure 133 mm[Hg] Wilfredo [facility] 12-05-2021 19:45-0400 Blood Pressure Location Wilfredo [facility] 12-05-2021 19:45-0400 Body temperature 99.68 [degF] Wilfredo [facility] 12-05-2021 19:45-0400 Diastolic blood pressure 91 mm[Hg] Wilfredo [facility] 12-05-2021 19:45-0400 Heart rate 107 /min Wilfredo [facility] 12-05-2021 19:45-0400 Mean blood pressure 101 mm[Hg] Wilfredo [facility] 12-05-2021 19:45-0400 Respiratory rate 16 /min Wilfredo [facility] 12-05-2021 19:45-0400 SaO2% (BldA) [Mass fraction] 99 % Wilfredo [facility] 12-05-2021 19:45-0400 Systolic blood pressure 122 mm[Hg] Wilfredo [facility] 12-05-2021 18:51-0400 Blood Pressure Location Wilfredokeysha [facility] 12-05-2021 18:51-0400 Diastolic blood pressure 64 mm[Hg] Wilfredokeysha [facility] 12-05-2021 18:51-0400 Heart rate 74 /min Wilfredo [facility] 12-05-2021 18:51-0400 Mean blood pressure 88 mm[Hg] Wilfredo [facility] 12-05-2021 18:51-0400 Respiratory rate 16 /min Wilfredo [facility] 12-05-2021 18:51-0400 SaO2% (BldA) [Mass fraction] 99 % Wilfredo [facility] 12-05-2021 18:51-0400 Systolic blood pressure 137 mm[Hg] Wilfredo [facility] 12-05-2021 07:00-0400 Body temperature 98.6 [degF] Wilfredo [facility] Encounters Encounter Date Encounter Type Care [...] Comment on above: Third trimester preg lisa ([facility]); 36 weeks gestation of ([facility]) Start: 03-02-2025 End: 03-02-2025 Bamboo flowsheet Martina SALAZAR Work Phone: [facility] Start: 03-02-2025 End: 03-02-2025 Bamboo flowsheet Martina SALAZAR Work Phone: [facility] Start: 03-02-2025 End: 03-02-2025 ambulatory MARTINA ARRINGTON Not Available Start: 03-02-2025 End: 03-02-2025 Office outpatient visit 15 minutes Martina SALAZAR Work Phone: [facility] Comment on above: Third trimester preg lisa ([facility]); 36 weeks gestation of ([facility]) Start: 02-23-2025 End: 02-23-2025 Bamboo flowsheet Ranjit [...] Stomach pain (Primar y Dx); Third trimester ([facility]); 35 weeks gestation of ([facility]) Start: 02-16-2025 End: 02-16-2025 Office outpatient visit 15 minutes Martina SALAZAR Work Phone: [facility] Comment on above: Third trimester preg lisa ([facility]); 34 weeks gestation of ([facility]) Start: 02-16-2025 End: 02-16-2025 ambulatory MARTINA ARRINGTON Not Available Start: 02-01-2025 End: 02-01-2025 ambulatory RANJIT ROBB Not Available Start: 02-01-2025 End: 02-01-2025 Office outpatient visit 15 minutes Ranjit Robb DO Work Phone: [facility] Comment on above: Third trimester preg lisa ([facility]); 32 weeks gestation of ([facility]); size inconsistent with dates ([facility]) Start: 01-30-2025 ambulatory Robson Harris acility:[facility] Start: 01-18-2025 End: 01-18-2025 ambulatory MARTINA ARRINGTON Not Available Start: 01-18-2025 End: 01-18-2025 Office outpatient visit 15 minutes Martina SALAZAR Work Phone: [facility] Comment on above: Third trimester preg lisa ([facility]); 29 weeks gestation of ([facility]) Start: 01-18-2025 End: 01-18-2025 Bamboo flowsheet Martina [...] Result Encounter Ranjit Robb DO Work Phone: [facility] External Department Unsolicited Start: 12-01-2024 End: 12-01-2024 Clinisync Result Encounter Ranjit Robb DO Work Phone: [facility] External Department Unsolicited Start: 11-30-2024 End: [...] OB Start: 11-09-2024 End: 11-09-2024 Bamboo flowsheet Rnajit Robb DO Work Phone: [facility] Start: 11-09-2024 End: 11-09-2024 Office outpatient visit 15 minutes Ranjit Robb DO Work Phone: [facility] Comment on above: 17 weeks gestation o f ; Second trimester ; Stomach cramps; Stomach pain; Nausea and vomiting during Start: 11-09-2024 End: 11-09-2024 ambulatory RANJIT ROBB Not Available Start: 11-08-2024 End: 11-08-2024 Emergency department patient visit Radha Whipple [facility] Start: 11-02-2024 End: 11-02-2024 Office outpatient visit 15 minutes Martina SALAZAR Work Phone: [facility] Comment on above: Screening, , for anatomic survey; Second trimester ; 18 weeks gestation of ; Vaginal discharge; STD exposure Start: 11-02-2024 End: 11-02-2024 ambulatory MARTINA ARRINGTON Not Available Start: 11-02-2024 End: 11-02-2024 Bamboo flowsheet Martina SALAZAR Work Phone: [facility] Start: 11-02-2024 End: 11-04-2024 Bamboo flowsheet Martina SALAZAR Work Phone: [facility] Start: 11-02-2024 End: 11-04-2024 External Result Encounter Ranjit Robb DO Work Phone: [facility] External Department Unsolicited Start: 09-26-2024 End: 09-26-2024 Bamboo flowsheet Ranjit Robb DO Work Phone: [facility] Start: 09-26-2024 End: 09-26-2024 Bamboo flowsheet Ranjit Robb DO Work Phone: [facility] Start: 09-26-2024 End: 09-26-2024 Office outpatient visit 15 minutes Ranjit Robb DO Work Phone: [facility] Comment on above: 13 weeks gestation o f ; Second trimester ; Nausea and vomiting, unspecified vomiting type Start: 09-26-2024 End: 09-26-2024 ambulatory RANJIT ROBB Not Available Start: 09-09-2024 End: 09-09-2024 Emergency department patient visit Fredi Ellington MD Work Phone: [facility] Work Phone: Start: 09-09-2024 Registered Recurring Fredi hicks MD Work Phone: [facility] Start: 09-06-2024 End: 09-06-2024 Telephone encounter [...] 08-21-2024 End: 08-21-2024 Emergency department patient visit [facility] Start: 08-11-2024 End: 08-11-2024 Office outpatient visit 15 minutes Peyton Quiroz [employer] Work Phone: [facility] Comment on above: Psychogenic nonepile ptic seizure (CMS/HCC) (Primary Dx); Mood disorder (CMS/HCC); Altered mental status, unspecified altered mental status type Start: 08-11-2024 End: 08-11-2024 ambulatory PEYTON QUIROZ Not Available Start: 08-11-2024 End: 08-11-2024 Bamboo flowsheet Peyton Quiroz [employer] Work Phone: [facility] Start: 08-11-2024 End: 08-11-2024 Wesleyboo flowsheet Peyton Richie DUPREE Work Phone: [facility] Start: 06-26-2024 End: 06-27-2024 Emergency department patient visit Han Bolaños [facility] Start: 05-22-2024 End: 05-22-2024 Emergency department patient visit Han Bolaños [facility] Start: 05-02-2024 End: 05-02-2024 ambulatory Zenon Hernandez Facility:[facility] Start: 05-02-2024 End: 05-02-2024 Patient encounter procedure Zenon Hernandez [facility] Start: 04-25-2024 End: 04-25-2024 ambulatory Zenon Hernandez Facility:[facility] Start: 04-25-2024 End: 04-25-2024 Patient encounter procedure Zenon Hernandez [facility] Start: 04-14-2024 End: 04-14-2024 Emergency department patient visit Migue Farrell Facility:[facility] Start: 04-10-2024 End: 04-10-2024 Emergency department patient visit Ko Draper [facility] Start: 04-07-2024 End: 04-07-2024 ambulatory Zenon Hernandez Facility:[facility] Start: 04-07-2024 End: 04-07-2024 Patient encounter procedure Zenon Hernandez [facility] Start: 03-31-2024 ambulatory Zenon Hernandez Faci lity:[facility] Start: 03-31-2024 End: 03-31-2024 Patient encounter procedure Zenon Hernandez [facility] Start: 03-14-2024 End: 03-15-2024 Emergency department patient visit Han Bolaños [facility] Start: 03-03-2024 End: 03-03-2024 ambulatory Zenon Hernandez Facility:[facility] Start: 03-03-2024 End: 03-03-2024 Patient encounter procedure Zenon Hernandez [facility] Start: 02-16-2024 End: 02-16-2024 ambulatory Radha Cantor Facility:[facility] Start: 02-16-2024 End: 02-16-2024 Patient encounter procedure Radha Cantor [facility] Start: 02-09-2024 End: 02-09-2024 ambulatory Zenon Hernandez Facility:[facility] Start: 02-09-2024 End: 02-09-2024 Patient encounter procedure Radha Cantor [facility] [place] Start: 01-28-2024 ambulatory Byers Start: 01-25-2024 ambulatory Astrit Hate Facility :[facility] Start: 01-22-2024 End: 01-22-2024 ambulatory Zenon Hernandez Facility:[facility] Start: 01-22-2024 End: 01-22-2024 Patient encounter procedure Zenon Hernandez [facility] Start: 01-14-2024 ambulatory Migue Farrell Facility :[facility] Start: 01-13-2024 End: 01-13-2024 Emergency department patient visit Migue Farrell [facility] Start: 01-12-2024 End: 01-12-2024 Emergency department patient visit Radha Whipple Facility:[facility] Start: 06-30-2023 ambulatory VALORIE HANSEN [facility] Start: 06-30-2023 End: 06-30-2023 Office outpatient new 30 minutes Valorie Hansen MD Work Phone: [facility] Comment on above: Macromastia (Primary Dx); Thoracic spine pain Start: 05-11-2023 End: 05-13-2023 Evaluation and management of inpatient Akosua LR [facility] Start: 03-16-2023 End: 03-16-2023 Emergency department patient visit Radha Whipple [facility] Start: 03-10-2023 End: 03-13-2023 Evaluation and management of inpatient MD Fredi Ellington Work Phone: [address] Work Phone: Start: 03-10-2023 End: 03-10-2023 ambulatory FREDI ELLINGTON [facility] Start: 03-08-2023 End: 03-10-2023 Evaluation and management of inpatient Lawrence Reveles Facility:[facility] Start: 03-07-2023 End: 03-10-2023 Evaluation and management of inpatient Orlando Wade [facility] Start: 02-27-2023 End: 02-27-2023 ambulatory MISTY MACKEY Facility:[facility] Start: 02-27-2023 End: 02-27-2023 Patient encounter procedure MISTY ROBKERRY [facility] Start: 11-14-2022 End: 11-14-2022 ambulatory [facility] Start: 11-13-2022 End: 11-13-2022 Emergency department patient visit Wilfredo Villareal [facility] Start: 11-05-2022 End: 11-06-[address] FREDI ELLINGTON . Facility:[facility] Start: 11-05-2022 End: 11-05-2022 ambulatory TEENA MARC . Facility:[facility] Start: 10-15-2022 End: 10-15-2022 ambulatory JUAN MIGUEL HUYNH [facility] Start: 10-13-2022 End: 10-13-2022 ambulatory [facility] Start: 10-10-2022 End: 10-11-2022 Emergency department patient visit Ko Draper [facility] Start: 10-06-2022 End: 10-06-2022 ambulatory [facility] Start: 10-05-2022 End: 10-06-2022 Emergency department patient visit Han Bolaños [facility] Start: 10-03-[address] FREDI ELLINGTON . Facili ty:[facility] Start: 09-25-2022 End: 09-26-[address] FREDI ELLINGTON . Facility:[facility] Start: 09-24-2022 End: 09-25-[address] FREDI ELLINGTON . Facility:[facility] Start: 09-11-2022 End: 09-11-[address] RFEDI ELLINGTON . Facility:[facility] Start: 08-05-2022 End: 08-05-[address] FREDI ELLINGTON . Facility:[facility] Start: 07-31-2022 End: 07-31-2022 ambulatory MD Fredi Ellington Work Phone: [facility] Work Phone: Start: 07-31-2022 End: 07-31-2022 Patient encounter procedure MD Fredi Ellington Work Phone: [facility] [place] Work Phone: Start: 07-24-2022 End: 07-24-[address] FREDI ELLINGTON . Facility:[facility] Start: 07-23-2022 End: 07-23-[address] FREDI ELLINGTON . Facility:[facility] Start: 07-08-2022 End: 07-08-2022 Emergency department patient visit Ko Villegas Baron [facility] Start: 07-08-2022 End: 07-08-[address] FREDI ELLINGTON . Facility:[facility] Start: 07-04-2022 End: 07-04-2022 Emergency department patient visit Radha Whipple [facility] Start: 07-02-2022 End: 07-02-2022 Emergency department patient visit Wilfredo Villareal [facility] Start: 06-25-2022 End: 06-25-[address] FREDI ELLINGTON . Facility:[facility] Start: 06-20-2022 End: 06-20-[address] FREDI ELLINGTON . Facility:[facility] Start: 05-26-2022 End: 05-26-[address] FREDI ELLINGTON . Facility:[facility] Start: 05-14-2022 End: 05-14-2022 ambulatory FREDI ELLINGTON [facility] Start: 04-26-2022 End: 04-27-[address] FREDI ELLINGTON . Facility:[facility] Start: 04-04-2022 End: 04-04-2022 Patient encounter procedure MISTY MACKEY [facility] Start: 03-20-2022 End: 03-20-[address] FREDI ELLINGTON . Facility:[facility] Start: 03-05-2022 End: 03-05-[address] FREDI ELLINGTON . Facility:[facility] Start: 01-17-2022 End: 01-17-[address] FREDI ELLINGTON . Facility:[facility] Start: 12-04-2021 End: 12-05-2021 Emergency department patient visit Wilfredo Villareal [facility] Start: 09-02-2018 Patient encounter procedure Martina Bedolla Facility:[id number] Start: 03-29-2018 Patient encounter procedure Martina Bedolla [...] Detail Author Start: 01-29-2028 Tetanus vaccination TETANUS [facility] Start: 04-03-2025 Influenza vaccination N [facility] Start: 03-15-2025 End: 03-15-2025 Patient encounter procedure 03/15/2025 11:20 AM EDT Routine KEV MILLER [address] [place] [address] Ranjit Zamudio DO [address] [place] [address] KEV MILLER Start: 03-09-2025 End: 03-09-2025 Patient encounter procedure 03/09/2025 9:20 AM EDT Routine [facility] [address] [place] [place] [phone] Martina Arrington PA [address] [place] [address] [facility] Start: 03-02-2025 End: 03-02-2026 CULTURE, GROUP B STREP WITH SUSCEPTIBLITY CULTURE, GROUP B STREP WITH SUSCEPTIBLITY Lab Routine Third trimester ([facility]) Expected: 03/02/2025, Expires: 03/02/2026 [facility] Work Phone: Comment on above: Expected: 03/02/2025 , Expires: 03/02/2026 Start: 02-23-2025 End: 02-23-2025 Patient encounter procedure 02/23/2025 9:00 AM EDT Routine [facility] [address] [place] [phone] Ranjit Zamudio DO [address] [place], [place] [id number] [facility] Start: 02-21-2025 End: 02-21-2025 Patient encounter procedure 02/21/2025 1:00 PM EDT Office Visit MARTINA CONKLIN [address] [place] [phone] Peyton Quiroz NP [address] [place], [place] MARTINA CONKLIN Start: 02-16-2025 End: 02-16-2025 Patient encounter procedure 02/16/2025 11:40 AM EDT Routine [facility] [address] [place] [address] Martina Arrington, PA [address] [place], [place] [id number] [facility] Start: 02-16-2025 End: 02-16-2025 Professional / ancillary services management 02/16/2025 11:00 AM EDT Ancillary Procedure [facility] [address] [place] [phone] [facility] Start: 02-01-2025 End: 06-04-2025 US for US OB follow up transabdominal approach Imaging Routine size inconsistent with dates ([facility]) Expected: 02/01/2025, Expires: 06/04/2025 [facility] Work Phone: Comment on above: Expected: 02/01/2025 , Expires: 06/04/2025 Start: 01-16-2025 End: 01-16-2025 Patient encounter procedure 01/16/2025 2:10 PM EDT Routine [facility] [address] [place] [phone] Ranjit Zamudio, DO [facility] [place] [address] [facility] Start: 12-28-2024 End: 12-28-2024 Patient encounter procedure 12/28/2024 2:30 PM EDT Routine [facility] [address] [place] [phone] Ranjit Zamudio, DO [facility] [place] [address] [facility] Start: 12-28-2024 End: 12-28-2024 Professional / ancillary services management 12/28/2024 2:00 PM EDT Ancillary Procedure [facility] [address] [place] [phone] [facility] Start: 11-30-2024 End: 11-30-2024 Patient encounter procedure [facility] Comment on above: Arrived Start: 11-30-2024 End: 11-30-2025 CBC panel - Blood by Automated count CBC Lab Routine Diabetes mellitus screening Expected: 11/30/2024 (Approximate), Expires: 11/30/2025 [facility] Comment on above: Expected: 11/30/2024 (Approximate), Expires: 11/30/2025 Start: 11-30-2024 End: 11-30-2025 Measurement of glucose 1 hour after glucose challenge for glucose tolerance test Glucose tolerance, 1 hour Lab Routine Diabetes mellitus screening Expected: 11/30/2024 (Approximate), Expires: 11/30/2025 [facility] Comment on above: Expected: 11/30/2024 (Approximate), Expires: 11/30/2025 Start: 11-30-2024 End: 03-01-2025 US for US OB limited 1+ fetuses Imaging Routine Encounter for follow-up ultrasound of anatomy Expected: 11/30/2024, Expires: 03/01/2025 [facility] Work Phone: Comment on above: Expected: 11/30/2024 , Expires: 03/01/2025 Start: 11-23-2024 End: 11-23-2024 Professional / ancillary services management 11/23/2024 10:00 AM EDT Ancillary Procedure [facility] [address] [facility] [place] [phone] [facility] Start: 11-09-2024 End: 11-09-2024 Patient encounter procedure 11/09/2024 1:00 PM EDT Routine [facility] [address] [facility] [place] [phone] Ranjit Zamudio DO [address] [place] [address] Arrived [facility] Comment on above: Arrived Start: 11-02-2024 End: 11-02-2024 Patient encounter procedure 11/02/2024 2:50 PM EDT Routine [facility] [address] [place] [address] Martina Arrington, PA [address] [place], [place] [id number] Arrived [facility] Comment on above: Arrived [...] encounter procedure 10/25/2024 1:30 PM EDT Routine [facility] [address] [place] [address] Martina Arrington PA [address] [place] [address] [facility] Start: 09-26-2024 End: 09-26-2024 Patient encounter procedure [facility] Comment on above: Arrived Start: 08-25-2024 End: 08-25-2025 ABO/Rh ABO/Rh Lab Routine Missed menses , unspecified gestational age Expected: 08/25/2024 (Approximate), Expires: 08/25/2025 [facility] Healthcare Comment on above: Expected: 08/25/2024 [...] trimester Expected: 08/25/2024 (Approximate), Expires: 08/25/2025 [facility] Comment on above: Expected: 08/25/2024 (Approximate), Expires: 08/25/2025 Start: 08-25-2024 End: 08-25-2024 ambulatory 08/25/2024 1:30 PM EST Initial [facility] [address] [place] [address] [facility] Start: 08-25-2024 End: 08-25-2024 Professional / ancillary services management 08/25/2024 1:00 PM EST Ancillary Procedure [facility] [address] [facility] [place] [phone] [facility] Start: 08-11-2024 End: 08-11-2024 Patient encounter procedure 08/11/2024 4:20 PM EST Office Visit MARTINA LYN [address] [place] [address] Peyton Quiroz, HAND [employer]ER [address] [place], [place] Arrived MARTINA LYN Comment on above: Arrived Start: 04-03-2024 Influenza vaccination Influenza Vacc ine (#1) [facility] Start: 04-03-2023 COVID-19 VACCINE ( season) COVID-19 VACCINE ( season) [facility] Start: 03-13-2023 [facility] Start: 03-10-2023 Hospital admission [facility] Start: 03-10-2023 [facility] Start: 2020 Screening for Chlamy patricia trachomatis CHLAMYDIA SCREEN [facility] Start: 12-31-2019 HIV screening HIV SCREENING DISCUSSI ON [facility] Start: 2004 Hepatitis C screening HEPATITI S C VIRUS SCREENING [facility] Start: 2004 Screening for Chlamy patricia trachomatis GONORRHEA SCREEN [facility] Bacteria identified in Urine by Culture Urine culture Microbiology Routine Missed menses Ordered: 08/25/2024 [facility] Comment on above: Ordered: 08/25/2024 CBC W Auto Different ial panel - Blood CBC and differential Lab Routine Missed menses , unspecified gestational age Ordered: 08/25/2024 [facility] Comment on above: Ordered: 08/25/2024 CHLAMYDIA TRACHOMATI S (GENITO/STI) CHLAMYDIA TRACHOMATIS (GENITO/STI) Lab Routine Vaginal discharge STD exposure Ordered: 11/02/2024 [facility] Comment on above: Ordered: 11/02/2024 Hemoglobin A1c/Hemoglobin.total in Blood Hemoglobin A1c Lab Routine Missed menses , unspecified gestational age Ordered: 08/25/2024 [facility] Comment on above: Ordered: 08/25/2024 Hepatitis B virus surface Ag [Presence] in Serum or Plasma by Immunoassay Hepatitis B surface antigen Lab Routine Missed menses , unspecified gestational age Ordered: 08/25/2024 [facility] Comment on above: Ordered: 08/25/2024 Hepatitis C virus Ab [Presence] in Serum or Plasma by Immunoassay Hepatitis C antibody Lab Routine Missed menses , unspecified gestational age Ordered: 08/25/2024 [facility] Comment on above: Ordered: 08/25/2024 HIV-1/HIV-2 antigen/antibody combination immunoassay HIV-1 and HIV-2 antibodies Lab Routine Missed menses , unspecified gestational age Ordered: 08/25/2024 [facility] Comment on above: Ordered: 08/25/2024 Neisseria gonorrhoea e DNA [Presence] in Unspecified specimen by CHRISTIAN with probe detection Neisseria gonorrhea DNA probe, direct Lab Routine Vaginal discharge STD exposure Ordered: 11/02/2024 [facility] Comment on above: Ordered: 11/02/2024 Patient Education [facility] Work Phone: Patient referral [facility] Work Phone: Reagin Ab [Presence] in Serum by RPR RPR Lab Routine Missed menses , unspecified gestational age Ordered: 08/25/2024 [facility] Comment on above: Ordered: 08/25/2024 Rubella antibody, IgG Rubella an tibody, IgG Lab Routine Missed menses , unspecified gestational age Ordered: 08/25/2024 [facility] Comment on above: Ordered: 08/25/2024 SURESWAB(R) ADVANCED VAGINITIS PLUS, TMA SURESWAB(R) ADVANCED VAGINITIS PLUS, TMA Pathology and Cytology Routine Vaginal discharge STD exposure Ordered: 11/02/2024 [facility] Work Phone: Comment on above: Ordered: 11/02/2024 Immunizations Immunization Date Immunization Notes Care Provider Fa tyron 05-06-2023 influenza virus vaccine, unspecified formulation Zenon Hernandez [facility] 10-03-2022 SARS-CoV-2 (COVID-19 ) [id number] Orlando Paster [facility] 07-31-2022 meningococcal B vaccine, fully recombinant Orlando Paster [facility] 07-31-2022 SARS-CoV-2 (COVID-19 ) mRNA-1273 vaccine Orlando Paster [facility] 07-01-2022 influenza virus vaccine, unspecified formulation Orlando Paster [facility] 07-01-2022 meningococcal ACWY vaccine, unspecified formulation Orlando Paster [facility] 07-01-2022 meningococcal B vaccine, fully recombinant Orlando Paster [facility] 07-01-2022 SARS-CoV-2 (COVID-19 ) mRNA-1273 vaccine Orlando Paster [facility] 08-09-2019 HPV, unspecified formulation Orlando Paster [facility] 08-09-2019 influenza virus vaccine, unspecified formulation Orlando Paster [facility] 01-28-2018 meningococcal ACWY vaccine, unspecified formulation Orlando Paster [facility] 01-28-2018 tetanus toxoid, redu elisabeth diphtheria toxoid, and acellular pertussis vaccine, adsorbed Orlando Paster [facility] 01-26-2018 HPV, unspecified formulation Orlando Paster [facility] 07-21-2011 hepatitis A vaccine, unspecified formulation Orlando Paster [facility] 07-21-2011 influenza virus vaccine, live, attenuated, for intranasal use Zenon Vizcainowei [facility] 01-16-2011 Diphtheria, tetanus toxoids and acellular pertussis vaccine, and poliovirus vaccine, inactivated Orlando Paster [facility] 01-16-2011 hepatitis A vaccine, unspecified formulation Orlando Paster [facility] 01-16-2011 measles, mumps, rubella, and varicella virus vaccine Orlando Paster [facility] 04-20-2006 diphtheria, tetanus toxoids and acellular pertussis vaccine Orlando Paster [facility] 04-20-2006 varicella virus vaccine Will alexis Paster [facility] 01-28-2006 Hib, unspecified formulation Orlando Paster [facility] 01-28-2006 measles, mumps and rubella virus vaccine Orlando Paster [facility] 07-23-2005 DTaP-hepatitis B and poliovirus vaccine Orlando Paster [facility] 07-23-2005 haemophilus influenz ae type b vaccine, PRP-T conjugate Orlando Paster [facility] 05-28-2005 DTaP-hepatitis B and poliovirus vaccine Orlando Paster [facility] 05-28-2005 haemophilus influenz ae type b vaccine, PRP-T conjugate Orlando Pastedivya [facility] 03-27-2005 DTaP-hepatitis B and poliovirus vaccine Orlando Paster [facility] 03-27-2005 haemophilus influenz ae type b vaccine, PRP-T conjugate Orlando Paster [facility] 2004 hepatitis B vaccine, pediatric or pediatric/adolescent dosage Orlando Paster [facility] Payers Date Payer Category Payer Private Health Insurance [facility] MEDICAID [id number] 2023 Unknown [id number] 2022 Self-pay [id number] 2004 Unknown [id number] 2.16.840.1.828068.3.579.2. 479 2004 Unknown [id number] 2.16.840.1.879388.3.579.2. 983 2004 Unknown [id number] 2.16.840.1.654450.3.579.2. 727 2004 Unknown [id number] 2.16.840.1.663520.3.579.2. 2004 Unknown [id number] 2.16.840.1.280159.3.579.2 2004 Unknown [id number] 2.16.840.1.455770.3.579.2 2004 Unknown [id number] 2.16.840.1.985732.3.579.2 2004 Unknown [id number] 2.16.840.1.274111.3.579.2 2004 Unknown [id number] 2.16.840.1.863070.3.579. 2004 Unknown [id number] 2.16.840.1.031230.3.579. 2004 Unknown [id number] 2.16840.1.215573.3.579. 2004 Unknown [id number] 2.16.840.1.935210.3.579. 2004 Unknown [id number] 2.16.840.1.241521.3.579. 2004 Unknown [id number] 2.16.840.1.294409.3.579.2 2004 Unknown [id number] 2.16.840.1.925541.3.579.2 2004 Unknown [id number] 2.16.840.1.042893.3.579.2 2004 Unknown [id number] 2.16.840.1.551215.3.579.2 2004 Unknown [id number] 2.16.840.1.457806.3.579.2 2004 Unknown [id number] 2.16.840.1.413296.3.579.2 2004 Unknown [id number] 2.16.840.1.744118.3.579.2. 2004 Unknown [id number] 2.16.840.1.003467.3.579.2 2004 Unknown [id number] 2.16.840.1.648863.3.579.2 2004 Unknown [id number] 2.16.840.1.291931.3.579.2 2004 Unknown [id number] 2.16.840.1.687875.3.579.2 2004 Unknown [id number] 2.16.840.1.810358.3.579.2 2004 Unknown [id number] 2.16.840.1.969410.3.579.2 2004 Unknown [id number] 2.16840.1.001824.3.579.2 2004 Unknown [id number] 2.16840.1.167794.3.579.2 2004 Unknown [id number] 2.16840.1.831916.3.579.2 2004 Unknown [id number] 2.16.840.1.324570.3.579.2 2004 Unknown [id number] 2.16840.1.674832.3.579.2 2004 Unknown [id number] 2.16.840.1.887971.3.579.2 2004 Unknown [id number] 2.16.840.1.265911.3.579.2 2004 Unknown [id number] 2.16.840.1.425115.3.579.2 2004 Unknown [id number] 2.16.840.1.663946.3.579.2 2004 Unknown [id number] 2.16.840.1.968764.3.579.2. 1258 2004 Unknown [id number] 2.16.840.1.329041.3.579.2. 1258 2004 Unknown [id number] 2.16.840.1.312241.3.579.2. 1258 2004 Unknown [id number] 2.16.840.1.712938.3.579.2. 1258 2004 Unknown [id number] 2.16.840.1.784015.3.579.2. 1258 2004 Unknown [id number] 2.16840.1.628659.3.579.2. 1258 2004 Unknown [id number] 2.16840.1.709121.3.579.2. 1258 2004 Unknown [id number] 2.16840.1.217459.3.579.2. 1258 2004 Unknown [id number] 2.16840.1.300944.3.579.2. 1258 2004 Unknown [id number] 2.16840.1.190424.3.579.2. 1258 2004 Unknown [id number] 2.16840.1.807455.3.579.2. 1258 2004 Unknown [id number] 2.16840.1.393155.3.579.2. 1258 2004 Unknown [id number] 2.16840.1.026807.3.579.2. 1258 2004 Unknown [id number] 2.16840.1.200950.3.579.2. 1258 2004 Unknown [id number] 2.16840.1.270446.3.579.2. 1258 2004 Unknown [id number] 2.16840.1.067510.3.579.2. 1258 2004 Unknown [id number] 2.16.840.1.864983.3.579.2. 1259 1979 Unknown [id number] 2.16.840.1.520214.3.579.2. 356 1979 Unknown [id number] 2.16.840.1.320967.3.579.2. 356 1979 Unknown [id number] 2.16.840.1.145000.3.579.2. 356 1979 Unknown [id number] 2.16.840.1.762498.3.579.2. 356 1979 Unknown [id number] 2.16.840.1.947788.3.579.2. 593 1979 Unknown [id number] 2.16.840.1.692864.3.579.2. 593 1979 Unknown [id number] 2.16.840.1.259541.3.579.2. 593 1979 Unknown [id number] 2.16.840.1.164788.3.579.2. 593 1979 Unknown [id number] 2.16.840.1.556573.3.579.2. 593 1979 Unknown [id number] 2.16.840.1.034711.3.579.2. 593 1979 Unknown [id number] 2.16.840.1.765265.3.579.2. 593 1979 Unknown [id number] 2.16.840.1.361137.3.579.2. 593 1979 Unknown [id number] 2.16.840.1.295183.3.579.2. 593 1979 Unknown [id number] 2.16.840.1.263482.3.579.2. 593 1979 Unknown [id number] 2.16.840.1.426131.3.579.2. 593 1979 Unknown [id number] 2.16.840.1.283136.3.579.2. 593 1979 Unknown [id number] 2.16.840.1.287467.3.579.2. 593 1979 Unknown [id number] 2.16.840.1.492490.3.579.2. 593 1979 Unknown [id number] 2.16.840.1.168062.3.579.2. 593 1979 Unknown [id number] 2.16.840.1.195106.3.579.2. 593 1979 Unknown [id number] 2.16.840.1.039219.3.579.2. 593 1979 Unknown [id number] 2.16.840.1.197555.3.579.2. 593 1979 Unknown [id number] 2.16.840.1.709360.3.579.2. 479 1979 Unknown [id number] 2.16.840.1.478098.3.579.2. 479 1979 Unknown [id number] 2.16.840.1.891287.3.579.2. 479 1979 Unknown [id number] 2.16.840.1.360512.3.579.2. 479 1979 Unknown [id number] 2.16.840.1.181248.3.579.2. 479 1959 Unknown [id number] 1959 Unknown [id number] Unknown [id number] 2.16.840.1.809137.3.579.2. 531 Unknown [id number] 2.16.840.1.009213.3.579.2. 531 Social History Date Type Detail Facility Start: 12-04-2021 End: 03-01-2024 Tobacco smoking status Never smoked tobacco (finding) [facility] Start: 06-30-2023 End: 08-11-2024 Sex Assigned At Female [facility] Tobacco [facility] Comment on above: denies Denies. Tobacco smoking status [facility] Start: 2004 Sex Assigned At Female F [facility] Start: 06-30-2023 Tobacco smoking stat [facility] Occasional tobacco smoker [facility] Start: 06-30-2023 End: 08-11-2024 History of Social function [facility] Start: 06-30-2023 Tobacco Comment vape [facility] Start: 2004 Sex Assigned At Not on file A [facility] Start: 03-01-2024 Tobacco use and exposure Smokeless tobacco non-user [facility] Start: 08-11-2024 End: 03-09-2025 Alcoholic beverage intake Lifetime non-drinker (finding) [facility] Start: 02-03-2024 Alcohol Comment caffeine: 1-2 cups per day [facility] Start: 07-07-2024 [facility] Start: 09-09-2024 Tobacco smoking stat [facility] Ex-smoker (finding) [facility] Start: 11-14-2009 End: 09-09-2024 Sex Female (finding) [facility] Goals Date Patient Goal Desired Activity /State Functional Status Date Assessment Result Facility 11-08-2024 Functional Status N/A [facility] [facility] Functional Status N/A [facility] 06-26-2024 Functional Status N/A [facility] 05-22-2024 Functional Status N/A [facility] 04-25-2024 Functional Status N/A [facility] 04-14-2024 Functional Status N/A [facility] 04-10-2024 Functional Status N/A [facility] 03-14-2024 Functional Status N/A [facility] 01-22-2024 Functional Status N/A [facility] 01-13-2024 Functional Status N/A [facility] 01-12-2024 Functional Status N/A [facility] 05-11-2023 Functional Status N/A [facility] 03-16-2023 Functional Status N/A [facility] 03-13-2023 Functional status Patient at [facility] Work Phone: 03-07-2023 Functional Status N/A [facility] 03-07-2023 Functional Status [facility] 11-13-2022 Functional Status N/A [facility] 10-10-2022 Functional Status N/A [facility] 10-05-2022 Functional Status N/A [facility] 07-08-2022 Functional Status N/A [facility] 07-04-2022 Functional Status N/A [facility] 07-02-2022 Functional Status N/A [facility] Mental Status Date Assessment Result Facility 03-13-2023 Cognitive function Cognitive Sta tus Patient at [facility] Work Phone: Clinical Notes 07-02-2022 to 03-09-2025 MARIE Flores - 03/09/2025 9:20 AM MARIE Samuel - 03/02/2025 10:50 AM Ronal Rivera INVASIVE CARDIOVASCULAR TECHNOLOGIST - 02/23/2025 9:00 AM MARIE Samuel - 02/16/2025 11:40 AM Nader Larkin INVASIVE CARDIOVASCULAR TECHNOLOGIST - 02/01/2025 1:30 PM EDT Note Date [...] ASSESSMENT & PLAN ICD-10-CM 1. Third trimester ([facility]) Z34.93 2. 36 weeks gestation of ([facility]) Z3A.36 Return OB: Patient presents today for [...] MARIE Flores documented in this encounter [facility] 03-02-2025 History of Present illness Narrative Reason [...] Past Medical History: Diagnosis Date Anxiety Asthma ([facility]) Depression DMDD (disruptive mood dysregulation disorder) ([facility]) History of being hospitalized 2020 HISTORY PAST MEDICAL HISTORY SOCIAL HISTORY Past Medical History: Diagnosis Date Anxiety Asthma (HCC) Depression DMDD (disruptive mood dysregulation disorder) ([facility]) History of being hospitalized 2020 seizure Social [...] nursing note reviewed. Exam conducted with a web applications programmer present. Vitals: Estimated body mass index is 40.74 kg/m as calculated from the following: Height as of 08/11/24: 5' 6 . Weight as of 02/23/25: 252 lb 6.4 oz. BP: Patient's last menstrual period was 06/23/2024. ASSESSMENT & PLAN ICD-10-CM 1. Third trimester ([facility]) Z34.93 POCT urinalysis dipstick manually resulted CULTURE, GROUP B STREP WITH SUSCEPTIBLITY CULTURE, GROUP B STREP WITH SUSCEPTIBLITY 2. 36 weeks gestation of ([facility]) Z3A.36 Patient is doing well but has [...] MARIE Flores documented in this encounter [facility] 02-23-2025 History of Present illness Narrative Reason [...] Past Medical History: Diagnosis Date Anxiety Asthma ([facility]) Depression DMDD (disruptive mood dysregulation disorder) ([facility]) History of being hospitalized 2020 HISTORY PAST MEDICAL HISTORY SOCIAL HISTORY Past Medical History: Diagnosis Date Anxiety Asthma (HCC) Depression DMDD (disruptive mood dysregulation disorder) ([facility]) History of being hospitalized 2020 seizure Social [...] nursing note reviewed. Exam conducted with a web applications programmer present. Vitals: Estimated body mass index is 40.74 kg/m as calculated from the following: Height as of 08/11/24: 5' 6 . Weight as of this encounter: 252 lb 6.4 oz. BP: 118/72 Patient's last menstrual period was 06/23/2024. ASSESSMENT & PLAN ICD-10-CM 1. Stomach pain R10.9 2. Third trimester ([facility]) Z34.93 POCT urinalysis dipstick manually resulted 3. 35 weeks gestation of ([facility]) Z3A.35 Patient presents today for a routine obstetrics appointment. Patient is currently 35w0d with a Estimated Date of Delivery: 03/30/25. Patient still complaints of abdominal pain. Patient to return to clinic in 1 week for GBS and routine OB. Documented by Deneen Rivera LPN on behalf of: Ranjit Zamudio DO documented in this encounter [facility] 02-16-2025 History of Present illness Narrative Reason [...] (HCC) Depression DMDD (disruptive mood dysregulation disorder) ([facility]) History of being hospitalized 2020 HISTORY PAST MEDICAL HISTORY SOCIAL HISTORY Past Medical History: Diagnosis Date Anxiety Asthma (HCC) Depression DMDD (disruptive mood dysregulation disorder) ([facility]) History of being hospitalized 2020 seizure Social [...] ASSESSMENT & PLAN ICD-10-CM 1. Third trimester ([facility]) Z34.93 POCT urinalysis dipstick manually resulted 2. 34 weeks gestation of ([facility]) Z3A.34 Return OB: Patient presents today for [...] OB appointment. documented in this encounter [facility] 02-01-2025 History of Present illness Narrative Reason [...] (HCC) Depression DMDD (disruptive mood dysregulation disorder) ([facility]) History of being hospitalized 2020 HISTORY PAST MEDICAL HISTORY SOCIAL HISTORY Past Medical History: Diagnosis Date Anxiety Asthma (HCC) Depression DMDD (disruptive mood dysregulation disorder) ([facility]) History of being hospitalized 2020 seizure Social [...] nursing note reviewed. Exam conducted with a web applications programmer present. Vitals: Estimated body mass index is 39.62 kg/m as calculated from the following: Height as of 08/11/24: 5' 6 . Weight as of this encounter: 245 lb 8 oz. BP: 120/80 Patient's last menstrual period was 06/23/2024. ASSESSMENT & PLAN ICD-10-CM 1. Third trimester ([facility]) Z34.93 POCT urinalysis dipstick manually resulted 2. 32 weeks gestation of ([facility]) Z3A.32 Return OB: Patient presents today for [...] Zamudio DO documented in this encounter [facility] 01-18-2025 History of Present illness Narrative Reason [...] nursing note reviewed. Exam conducted with a web applications programmer present. Vitals: Estimated body mass index is 39.77 kg/m as calculated from the following: Height as of 08/11/24: 5' 6 . Weight as of this encounter: 246 lb 6 oz. BP: 110/76 Patient's last menstrual period was 06/23/2024. ASSESSMENT & PLAN ICD-10-CM 1. Third trimester ([facility]) Z34.93 POCT urinalysis dipstick manually resulted 2. 29 weeks gestation of ([facility]) Z3A.29 Return OB: Patient presents today for [...] Garrido NP documented in this encounter [facility] 12-28-2024 History of Present illness Narrative Reason [...] Ambulatory Problems Diagnosis Date Noted Mood disorder ([facility]) 02/03/2024 Altered mental status 02/03/2024 Psychogenic nonepileptic seizure 02/03/2024 Resolved Ambulatory Problems Diagnosis Date Noted No Resolved Ambulatory Problems Past Medical History: Diagnosis Date Anxiety Asthma Depression ([facility]) DMDD (disruptive mood dysregulation disorder) ([facility]) History of being hospitalized 2020 HISTORY PAST MEDICAL HISTORY SOCIAL HISTORY Past Medical History: Diagnosis Date Anxiety Asthma Depression ([facility]) DMDD (disruptive mood dysregulation disorder) ([facility]) History of being hospitalized 2020 seizure Social [...] nursing note reviewed. Exam conducted with a web applications programmer present. Vitals: Estimated body mass index is [...] Zamudio DO documented in this encounter [facility] 11-30-2024 History of Present illness Narrative Reason [...] Ambulatory Problems Diagnosis Date Noted Mood disorder ([facility]) 02/03/2024 Altered mental status 02/03/2024 Psychogenic nonepileptic seizure 02/03/2024 Resolved Ambulatory Problems Diagnosis Date Noted No Resolved Ambulatory Problems Past Medical History: Diagnosis Date Anxiety Asthma Depression ([facility]) DMDD (disruptive mood dysregulation disorder) ([facility]) History of being hospitalized 2020 HISTORY PAST MEDICAL HISTORY SOCIAL HISTORY Past Medical History: Diagnosis Date Anxiety Asthma Depression ([facility]) DMDD (disruptive mood dysregulation disorder) ([facility]) History of being hospitalized 2020 seizure Social [...] nursing note reviewed. Exam conducted with a web applications programmer present. Vitals: Estimated body mass index is [...] Zamudio DO documented in this encounter [facility] 11-09-2024 History of Present illness Narrative Reason [...] Ambulatory Problems Diagnosis Date Noted Mood disorder ([facility]) 02/03/2024 Altered mental status 02/03/2024 Psychogenic nonepileptic seizure 02/03/2024 Resolved Ambulatory Problems Diagnosis Date Noted No Resolved Ambulatory Problems Past Medical History: Diagnosis Date Anxiety Asthma Depression ([facility]) DMDD (disruptive mood dysregulation disorder) ([facility]) History of being hospitalized 2020 HISTORY PAST MEDICAL HISTORY SOCIAL HISTORY Past Medical History: Diagnosis Date Anxiety Asthma Depression ([facility]) DMDD (disruptive mood dysregulation disorder) ([facility]) History of being hospitalized 2020 seizure Social [...] nursing note reviewed. Exam conducted with a web applications programmer present. Vitals: Estimated body mass index is [...] Zamudio DO documented in this encounter [facility] 11-08-2024 Hospital Discharge instructions Patient Education 11/08/2024 [...] water added (diluted fruit juice). Eat bland, jezk-fn-fvtasj foods in small amounts as you are able. These foods include bananas, applesauce, rice, lean meats, toast, and crackers. Avoid fluids that contain a lot of sugar or caffeine, such as energy drinks, sports drinks, and soda. Avoid alcohol. Avoid spicy or fatty foods. General instructions Take aspj-rif-gszksuj and prescription medicines only as told by your health care provider. Drink enough fluid to keep your urine pale yellow. Wash your hands often using soap and water for at least 20 seconds. If soap and water are not available, use hand iron carrier. Make sure that everyone in your household [...] eating and drinking to prevent dehydration. Take innp-dfa-hgnyhle and prescription medicines only as told by [...] provider. Document Revised: 01/24/2022 Document Reviewed: 01/24/2022 [employer]MOS Patient Education 2023 [employer]. 11/08/2024 18:27:10 Abdominal Pain During Abdominal Pain [...] to keep your urine pale yellow. Take yfet-lpf-oabtybd and prescription medicines only as told by [...] provider. Document Revised: 04/02/2021 Document Reviewed: 04/02/2021 XMOS Patient Education 2023 [employer]. Follow Up Care 11/08/2024 16:08:40 With:Ranjit ZAMUDIO Address: [address] [place] [address]- Business (1) When:11/11/2024 18:16:21 With:Fredi Ellington Address: [address] [place] [address] [place] [address]- Business (1) When:Within 3 Day(s) [facility] 11-08-2024 Note ED Patient Education Note Gastroenterology [...] added (diluted fruit juice). ??? Eat bland, arhq-cx-hbdtut foods in small amounts as you are able. These foods include bananas, applesauce, rice, lean meats, toast, and crackers. ??? Avoid fluids that contain a lot of sugar or caffeine, such as energy drinks, sports drinks, and soda. ??? Avoid alcohol. ??? Avoid spicy or fatty foods. General instructions ??? Take dwpm-rfw-wtwztyu and prescription medicines only as told by your health care provider. ??? Drink enough fluid to keep your urine pale yellow. ??? Wash your hands often using soap and water for at least 20 seconds. If soap and water are not available, use hand iron carrier. ??? Make sure that everyone in your [...] and drinking to prevent dehydration. ??? Take jbpu-tnn-chjjqgw and prescription medicines only as told by [...] provider. Document Revised: 01/24/2022 Document Reviewed: 01/24/2022 XMOS Patient Education ? 2023 [employer]. Obstetrics and Gynecology Abdominal Pain During Abdominal [...] enough fluid t (more content not included)... [facility] 11-02-2024 History of Present illness Narrative Reason [...] Ambulatory Problems Diagnosis Date Noted Mood disorder ([facility]) 02/03/2024 Altered mental status 02/03/2024 Psychogenic nonepileptic seizure 02/03/2024 Resolved Ambulatory Problems Diagnosis Date Noted No Resolved Ambulatory Problems Past Medical History: Diagnosis Date Anxiety Asthma ([facility]) Depression ([facility]) DMDD (disruptive mood dysregulation disorder) ([facility]) History of being hospitalized 2020 HISTORY PAST MEDICAL HISTORY SOCIAL HISTORY Past Medical History: Diagnosis Date Anxiety Asthma (CMS/HCC) Depression (CMS/HCC) DMDD (disruptive mood dysregulation disorder) ([facility]) History of being hospitalized 2020 seizure Social [...] nursing note reviewed. Exam conducted with a web applications programmer present. Vitals: Estimated body mass index is [...] MARIE Flores documented in this encounter [facility] 09-26-2024 History of Present illness Narrative Reason [...] Ambulatory Problems Diagnosis Date Noted Mood disorder ([facility]) 02/03/2024 Altered mental status 02/03/2024 Psychogenic nonepileptic seizure ([facility]) 02/03/2024 Resolved Ambulatory Problems Diagnosis Date Noted No Resolved Ambulatory Problems Past Medical History: Diagnosis Date Anxiety Asthma ([facility]) Depression ([facility]) DMDD (disruptive mood dysregulation disorder) ([facility]) History of being hospitalized 2020 HISTORY PAST MEDICAL HISTORY SOCIAL HISTORY Past Medical History: Diagnosis Date Anxiety Asthma ([facility]) Depression ([facility]) DMDD (disruptive mood dysregulation disorder) ([facility]) History of being hospitalized 2020 seizure Social [...] nursing note reviewed. Exam conducted with a web applications programmer present. Vitals: Estimated body mass index is [...] or undercooked meat, and stay away from [facility]. Patient has been consulted regarding any [...] Zamudio DO documented in this encounter [facility] 09-06-[address] Palma a [...] me for my time in this matter. [facility] 09-06-[address] Palma [...] this matter. documented in this encounter [facility] 08-25-2024 History of Present illness Narrative Reason [...] Ambulatory Problems Diagnosis Date Noted Mood disorder ([facility]) 02/03/2024 Altered mental status 02/03/2024 Psychogenic nonepileptic seizure ([facility]) 02/03/2024 Resolved Ambulatory Problems Diagnosis Date Noted No Resolved Ambulatory Problems Past Medical History: Diagnosis Date Anxiety Asthma ([facility]) Depression ([facility]) DMDD (disruptive mood dysregulation disorder) ([facility]) History of being hospitalized 2020 Family History [...] or undercooked meat, and stay away from [facility]. Patient has also been advised to [...] Ferrell MA documented in this encounter [facility] 08-21-2024 Hospital Discharge instructions Patient Education 08/21/2024 [...] medicines to help relieve symptoms, such as: Nmto-bim-eoytwxv cold medicines. Cough suppressants. Coughing is a [...] and other clear broths. General instructions Take lpqq-ulo-piwjnls and prescription medicines only as told by [...] and water are not available, use hand iron carrier. Avoid touching your mouth, face, eyes, or [...] provider. Document Revised: 02/19/2022 Document Reviewed: 02/19/2022 XMOS Patient Education 2023 [employer]. 08/21/2024 20:38:01 Morning Sickness Morning Sickness Morning [...] Follow these instructions at home: Medicines Take yvim-bqz-qskhkpi and prescription medicines only as told by your health care provider. Do not use any prescription, cfzr-jnd-erzmqdr, or herbal medicines for morning sickness without [...] provider. Document Revised: 03/04/2021 Document Reviewed: 02/11/2021 XMOS Patient Education 2023 [employer]. Follow Up Care 08/21/2024 16:54:48 With:Cheri Joiner Address: [address], [address] [address]- Business (1) When:08/24/2024 20:13:36 With:Fredi Rakel Address: [facility] [place] [address]- Business (1) When:08/24/2024 20:13:28 [facility] 08-21-2024 Note ED Patient Education Note Infectious [...] to help relieve symptoms, such as: ??? Lflv-vzc-xpvkhum cold medicines. ??? Cough suppressants. Coughing is [...] other clear broths. General instructions ??? Take lwen-tnc-ssaulwo and prescription medicines only as told by [...] and water are not available, use hand iron carrier. ??? Avoid touching your mouth, face, eyes, [...] a stiff n (more content not included)... [facility] 08-21-2024 Evaluation + Plan note Diagnostic Tests PendingGroup A Strep by PCR 08/21/24 Future Scheduled TestsBD Bone Density DEXA 04/25/24 [facility] 08-11-2024 History of Present illness Narrative Images [...] Past Medical History: Diagnosis Date Anxiety Asthma ([facility]) Depression ([facility]) DMDD (disruptive mood dysregulation disorder) ([facility]) History of being hospitalized 2020 seizure No [...] 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 She started to develop these events where she will black out and then start to shake but can hear people talking to her. She did have myoclonic jerks at times. She did have an awake/sleep EEG 04/12/2021 at [facility] that was normal. Another EEG did show [...] was walking to EMS and went to [facility]. She had EKG labs and urine [...] 6 months documented in this encounter [facility] 06-27-2024 Hospital Discharge instructions Patient Education 06/27/2024 [...] products, such as yogurt. General instructions Take oair-fba-blnhctf and prescription medicines only as told by [...] provider. Document Revised: 04/03/2022 Document Reviewed: 04/03/2022 XMOS Patient Education 2023 [employer]. 06/27/2024 00:49:28 Non-Epileptic Seizures, Adult Non-Epileptic Seizures, [...] do if you have a seizure. Take pxrp-cij-pqktroj and prescription medicines only as told by [...] right away. Call your local emergency services (277 in the [place] Do not drive yourself to the hospital. If you ever feel like you may hurt yourself or others, or have thoughts about taking your own life, get help right away. Go to your nearest emergency department or: Call your local emergency services (286 in the [place] Call a suicide crisis helpline, such as the National Suicide Prevention Lifeline at or 262 in the [place] This is open 24 hours a day in the [place] Text the Crisis Text Line at 796118 (in the [place] Summary Non-epileptic seizures are [...] Document Reviewed: 01/04/2021 Elsevier Patient Education 2023 [employer]. Follow Up Care 06/26/2024 23:14:27 With:Melecio Rubio Address: [place] [address] [place] [address]- Business (1) When:06/30/2024 With:Fredi Rakel Address: [facility] [place] [address]- Business (1) When:Within 3 Day(s) [facility] 06-27-2024 Note ED Patient Education Note Gastroenterology [...] such as yogurt. General instructions ??? Take jxuy-utp-xiwjiuj and prescription medicines only as told by [...] provider. Document Revised: 04/03/2022 Document Reviewed: 04/03/2022 Else[employer]aretribe Patient Education ? 2023 [employer]. Neurology Non-Epileptic Seizures, Adult A non-epileptic seizure [...] events, such as (more content not included)... [facility] 06-26-2024 Evaluation + Plan note Extrac gamaliel [...] Tests Radiology* BD Bone Density DEXA 04/25/24 [facility] 10-21-2024 Hospital Discharge instructions Patient Education 05/22/2024 22:41:58 Upper Respiratory Infection, Adult, Wxtj-wo-Tbks Upper Respiratory Infection, Adult An upper respiratory [...] medicines to help relieve symptoms, such as: Ifsz-ajl-lhnzlou cold medicines. Medicines to reduce coughing (cough [...] and other clear broths. General instructions Take cqqa-bkr-vyicthw and prescription medicines only as told by [...] cannot use soap and water, use hand iron carrier. Avoid touching your mouth, face, eyes, or [...] get better within 7 10 days. Take vutp-dak-yawsovk and prescription medicines only as told by your doctor. This information is not intended to replace advice given to you by your health care provider. Make sure you discuss any questions you have with your health care provider. Document Revised: 02/19/2022 Document Reviewed: 02/19/2022 XMOS Patient Education 2023 [employer]. Follow Up Care 05/22/2024 21:50:15 With:Fredi Ellington Address: [address] [place] [address] Business (1) When:05/25/2024 Comments:Call Dr for diagnosis based follow up [facility] 10-20-2024 NoteED Patient Education Note Infectious Disease [...] to help relieve symptoms, such as: ? Thrj-ewt-vajxokr cold medicines. ? Medicines to reduce coughing [...] other clear broths. General instructions ? Take kpdm-uat-ojwrlmx and prescription medicines only as told by [...] cannot use soap and water, use hand iron carrier. ? Avoid touching your mouth, face, eyes, [...] get better within 7?10 days. ? Take syau-vcu-tpnovpq and prescription medicines only as told by your doctor. This information is not intended to replace advice given (more content not included)...[facility] Evaluation + Plan note Extracted from: Title:ED [...] EDT, STAT, Start date 05/22/24 22:28:00 EDT, [facility]- max dose 12 mg, 05/22/24 22:28:00 EDT ondansetron, 4 mg = 1 tab(s), Oral, q8hr, PRN Nausea/Vomiting, # 12 tab(s), Refills(s) 0, Pharmacy: [id number], 170.2, cm, 05/22/24 21:55:00 EDT, Height/Length Dosing, 115.8, kg, 05/22/24 21:55:00 EDT, Weight Dosing Diagnostic Tests Pending * Group A Strep by PCR 05/22/24 Future Scheduled Tests Radiology* BD Bone Density DEXA 04/25/24 [facility] 09-23-2024 Evaluation + Plan note Future Scheduled Tests Radiology* US Thyroid 04/25/24 * BD Bone Density DEXA 04/25/24 [facility] 09-23-2024 Evaluation + Plan note Future Scheduled Tests Radiology* BD Bone Density DEXA 04/25/24 [facility] 09-13-2024 Hospital Discharge instructions Patient Education 04/14/2024 [...] you until you feel stable. Medicines Take zwdg-evx-lbarjed and prescription medicines only as told by [...] provider. Document Revised: 11/28/2021 Document Reviewed: 11/28/2021 XMOS Patient Education 2023 [employer] Follow Up Care 04/14/2024 20:02:23 With:Fredi Ellington Address: [address] [place] [phone] Business (1) When:04/17/2024 Comments:Return to the emergency room if the syncopal episode recurs or any new symptoms [facility] 09-12-2024 NoteED Patient Education Note Neurology Syncope, [...] until you feel stable. Medicines ? Take qjgi-ryg-ihbllji and prescription medicines only as told by [...] provider. Document Revised: 11/28/2021 Document Reviewed: 11/28/2021 XMOS Patient Education ? 2023 [employer] 04-14-2024 Evaluation + Plan noteExtracted from: Title:ED Note Author:Migue Farrell M.D. te:04/14/24 1. Syncope (R55: Syncope and collapse) Orders: Basic Metabolic Panel CBC w/ Auto Diff CT Head or Brain w/o Contrast Drug Screen Urine ED Cardiac Monitoring eGFR Hepatic Function Panel Magnesium Level Oxygen Saturation Oxygen Therapy PT & PTT Rapid COVID Antigen ([facility]) Saline Lock Insert Troponin 0 Hr. Troponin 1 Hr. U Beta Hcg Qual UA with Cult Rflx XR Chest 2 Views Future Appointments Appointment Date:04/25/2024 01:15:00 PM Scheduled Provider:Zenon Hernandez MD Location:[facility] Appointment Type:[facility] Follow Up [facility] 09-08-2024 Evaluation + Plan noteExtracted from: Title:ED [...] Date:04/25/2024 01:15:00 PM Scheduled Provider:Zenon Hernandez MD Location:[facility] Appointment Type:[facility] Follow Up [facility] 09-08-2024 Hospital Discharge instructions Patient Education 04/10/2024 06:46:15 Syncope, Adult, Jioa-ug-Tust Syncope, Adult Syncope is when you pass [...] you until you feel better. Medicines Take tyca-aze-pmpyjmn and prescription medicines only as told by [...] provider. Document Revised: 11/28/2021 Document Reviewed: 11/28/2021 XMOS Patient Education 2023 [employer]. Follow Up Care 04/10/2024 04:30:28 With:Fredi Rakel Address: [address] [place], [place] [phone] Business (1) When:04/13/2024 06:31:35 Comments:Follow-up with your primary care doctor for further evaluation and management. Please return to theED for any new or worsening symptoms. [facility] 09-08-2024 NoteED Patient Education Note Neurology Syncope, [...] until you feel better. Medicines ? Take lncb-bxw-otxwnpw and prescription medicines only as told by [...] right away. Call your local emergency services (630 inthe [place] ? Do not wait to [...] provider. Document Revised: 11/28/2021 Document Reviewed: 11/28/2021 XMOS Patient Education ? 2023 [employer] 03-15-2024 Hospital Discharge instructions Patient Education 03/15/2024 [...] services (911 in the [place].). Call the [facility] and human services helpline (211 in the [place] Call or text a suicide hotline to speak with a trained counselor. The following suicide hotlines are available in the [place]: ?4-416-776-TALK ( or 988 in the [place] ?2-730-ZVVHDUU ( ). ?Text 691698. This is the Crisis Text Line in the [place]. ? . This is a hotline for Cape Verdean speakers. ? . This is a hotline for TTY users. ?6-363-9-U-ELIZA ( ). This is a hotline for lesbian, schultz, bisexual, transgender, or questioning youth. ?For a list of hotlines in [place], visit suicide.org/hotlines/international/pzfvdl-qkktmte-tqkbsyus.html Contact a crisis center or a local [...] list of crisis centers in [place], visit: suicideprevention.wa How to help yourself feel better Promise [...] to anyone or being with other people. ?Thlw-gm-fepv conversation is best to help them understand [...] physical and a mental health checkup. Take wzxo-oct-zomdnlo and prescription medicines only as told by [...] National Suicide Prevention Lifeline: www.suicidepreventionlifeline.org Hopeline: www.hopeline.com Moroccan Foundation for Suicide Prevention: www.afsp.org The Eliza Project (for lesbian, schultz, bisexual, transgender, or questioning youth): www.thetrevorproject.org National [place] of Mental Health: www.nimh.nih.gov/health/topics/suicide-prevention Suicide Prevention Resources: afsp.org/kafnboj-rqhpzhpnzl-zfbjudnqb Contact a health care provider if: You [...] provider. Document Revised: 02/13/2022 Document Reviewed: 11/28/2021 XMOS Patient Education 2022 [employer]. Follow Up Care 03/14/2024 21:07:34 With:[facility] Address:Unknown When:03/16/2024 With:Fredi Ellington Address: [facility] [place] [address]- Business (1) When:Within 3 Day(s) [facility] 08-13-2024 NoteED Patient Education Note Mental and [...] (911 in the [place].S.). ? Call the [facility] and human services helpline (211 in the [place] ? Call or text a suicide hotline to speak with a trained counselor. The following suicide hotlines are available in the [place]: ? 3-003-840-TALK ( or 414 in the [place].S.). ? 7-270-YIDMCAS ( ). ? Text 516181. This is the Crisis Text Line in the [place]. ? . This is a hotline for [place] Ver[place]an speakers. ? . This is a hotline for TTY users. ? 9-117-4-U-ELIZA ( ). This is a hotline for lesbian, schultz, bisexual, transgender, or questioning youth. ? For a list of hotlines in [place], visit suicide.org/hotlines/international/jfxoir-jfhotfi-zlleubld.html ? Contact a crisis center or a [...] anyone or being with other people. ? Fqxb-eo-sfie conversation is best to help them understand [...] and a mental health checkup. ? Take lkgt-rgf-bdkdacu and prescription medicines only as told by [...] behaviors and wa (more content not included)... [facility]08-12-2024 Evaluation + Plan noteExtracted from: Title:ED Note [...] 10:15:00 AM Scheduled Provider:David MARCANO, Zenon Ratliff Location:[facility] Appointment Type:[facility] Follow Up [facility] 07-16-2024 Evaluation + Plan note Future Scheduled Tests Radiology* CT Abdomen w/ Contrast 02/16/24 [facility]06-21-2024 Evaluation + Plan note Future Scheduled Tests Radiology* CT Abdomen w/ Contrast 01/22/24 [facility] 06-12-2024 Hospital Discharge instructions Patient Education 01/13/2024 20:49:15 Acute Pancreatitis, Uskt-oc-Pfgc Acute Pancreatitis Acute pancreatitis happens when there [...] Follow these instructions at home: Medicines Take olle-lwe-cmsvtpw and prescription medicines only as told by [...] provider. Document Revised: 06/10/2022 Document Reviewed: 06/10/2022 XMOS Patient Education 2022 [employer]. 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 Coffee and tea (caffeinated or decaffeinated). Tonalea. Liquid nutritional supplements. Soft drinks. Nondairy milks, such as almond, coconut, rice, or soy milk. Sweets and desserts Custard. Pudding. Flavored gelatin. Smooth ice cream (without nuts or candy pieces). Sherbet. Frozen ice pops. [place] Citizen ice. Pudding pops. Seasonings and condiments Salt and pepper. Spices. Vinegar. Ketchup. Yellow mustard. Smooth sauces, such as Hollandaise, cheese sauce, or white sauce. Soy sauce. Syrup. Honey. Jelly (without fruit pieces). Other foods Tonalea powder. Cream soups. Strained soups. The items [...] provider. Document Revised: 05/07/2021 Document Reviewed: 05/07/2021 XMOS Patient Education 2022 [employer]. 01/12/2024 16:42:34 Nausea, Adult, Egdd-rv-Voga Nausea, Adult Nausea is feeling like you [...] fruit juice). ?Low-calorie sports drinks. Eat bland, fzfa-na-uzseka foods in small amounts as you are able, such as: ?Bananas. ?Applesauce. ?Rice. ?Low-fat (lean) meats. ?[place]. ?Crackers. Avoid drinking fluids that have a lot of sugar or caffeine in them. This includes energy drinks, sports drinks, and soda. Avoid alcohol. Avoid spicy or fatty foods. General instructions Take qhuh-hmq-rsldtlg and prescription medicines only as told by [...] cannot use soap and water, use hand iron carrier. Make sure that everyone in your home [...] drink what your doctor tells you. Take gpgw-orl-yksvhmf and prescription medicines only as told by your doctor. Contact a doctor right away if your symptoms get worse or you have new symptoms. Keep all follow-up visits. This information is not intended to replace advice given to you by your health care provider. Make sure you discuss any questions you have with your health care provider. Document Revised: 01/24/2022 Document Reviewed: 01/24/2022 XMOS Patient Education 2022 [employer]. 01/12/2024 16:42:31 Abdominal Pain, Adult, Qkqf-ol-Ljte Abdominal Pain, Adult Many things can cause belly (abdominal) pain. Most times, belly pain is not dangerous. Many cases of belly pain can be watched and treated at home. Sometimes, though, belly pain is serious. Your doctor will try to find the cause of your belly pain. Follow these instructions at home: Medicines Take omsp-mho-gdlhgnr and prescription medicines only as told by [...] your belly pain for any changes. Take wlhf-uaw-hpzdhvb and prescription medicines only as told by [...] provider. Document Revised: 11/28/2019 Document Reviewed: 11/28/2019 XMOS Patient Education 2022 [employer]. Follow Up Care 01/12/2024 14:44:40 With:Fredi Ellington MD Address: [address] [place] [address]- When:01/15/2024 [facility]11-28-2023 History of Present illness Narrative* Valorie Hansen [...] minimize her perioperative risk. documented in this [facility]10-23-2023 NoteAdmission and Discharge Information Admit Date/Time:05/11/2023 07:29 [...] 46.4 % Lymph Auto - 41.3 % Peach Auto - 8.8 % Eos Auto - 3.1 % Basophil Auto - 0.4 % Neutro Absolute - 2.6 E9/L Lymph Absolute - 2.3 E9/L Peach Absolute - 0.5 E9/L Eos Absolute - 0.2 E9/L Basophil Absolute - 0.0 E9/L Capillary Glucose POC (05/12/2023) Glucose Cap - 84 mg/dL POC Device SN - [id number] POC User ID - [id number] POC Username - NERY ALCALA CBC w/ [...] Follow-up With When Contact Information Joann Zamorano [address] [address]- Business (1) Additional Instructions: Call for hospital followup appointment 2-3 weeks Fredi Ellington [address] [facility] [place] [address]- Business (1) Additional Instructions: Call for followup appointment Patient Education [facility]Result Comment: Electronically Signed By: Shazia NUNES\.br\Date and Time Signed: 05/24/23 18:49 EDT\.br\Electronically Co-Signed By: Akosua LR MD\.br\Date and Time Co-Signed: 05/25/2307:00 [id number] Hospital Discharge instructions Patient Education 05/13/2023 12:04:21 [...] Follow these instructions at home: Medicines Take wiul-kgk-kzplrrw and prescription medicines only as told by [...] medicines are used to treat seizures. Take tznb-mxr-jlomtzs and prescription medicines only astold by your health care provider. This information is not intended to replace advice given to you by your health care provider. Make sure you discuss any questions you have with your health care provider. Document Revised: 01/25/2021 Document Reviewed: 01/25/2021 XMOS Patient Education 2022 [employer] Follow Up Care 04/22/2023 12:48:03 With:Joann Zamorano Address: [address] [address]- Business (1) When: Unknown Comments:Call for hospital followup appointment 2-3 weeks With:Fredi Ellington Address: [facility] [facility] [place] [address]- Business (1) When: Unknown Comments:Call for followup appointment [facility]10-11-2023 Evaluation + Plan noteExtracted from: Title:APSO Note-neurology [...] on the hospitalization course and therapeutic plan. [facility]10-10-2023 NoteChief Complaint LTME Reason for Consultation [...] sensation in all 4 extremities Cerebellar exam: Hzbwsl-sl-gidh reveals no ataxia. Gait is normal Assessment/Plan [...] 12/04/2021 Immunizations Vaccine Date Status SARS-CoV-2 (COVID-19) [id number].[id number] 10/03/2022 Recorded meningococcal group B vaccine 07/31/2022 [...] hepatitis A pediatric vaccine (more content not included)...[facility]Result Comment: Electronically Signed By: Constanza [...] sensation in all 4 extremities. Cerebellar exam: Knwmjl-be-wbar reveals no ataxia. Gait is normal. Assessment/Plan [...] 12/04/2021 Immunizations Vaccine Date Status SARS-CoV-2 (COVID-19) mRNAMUL.ORD![id number] 10/03/2022 Recorded meningococcal group B vaccine 07/31/2022 [...] 05/28/2005 Recorded haemophilus b (more content not included)...[facility]:Result Comment: Electronically Signed By: Riya Tidwell RN\.br\Date and Time Signed: 05/11/23 09:39 EDT\.br\Electronically Co-Signed By: Melecio Rubio MD\.br\Date and Time Co-Signed: 05/12/23 08:36 [id number] NoteBasic Information Admit Date/Time:05/11/2023 07:29 Chief Complaint [...] agreement with POC. P (more content not included)...[facility]: Result Comment: Electronically Signed By: Alicia Sidhu\.br\Date and Time Signed: 05/11/23 20:00 EDT\.br\Electronically Co-Signed By: Akosua LR MD\.br\Date and Time Co-Signed: 05/12/23 06:56 [id number] Hospital Discharge instructions Patient Education 03/16/2023 17:50:47 [...] Follow these instructions at home: Medicines Take dstl-ubw-tukbulb and prescription medicines only as told by [...] and water are not available, use hand iron carrier. ?Leave stitches (sutures), skin glue, or adhesive [...] provider. Document Revised: 10/24/2021 Document Reviewed: 10/24/2021 XMOS Patient Education 2022 [employer]. 03/16/2023 17:50:47 Head Injury, Adult Head Injury, [...] Ask your health care provider for a utmu-oo-fuid plan for gradually returning to activities. Ask [...] your friends, family, a trusted colleague, and asbestos abatement worker about your injury, symptoms, and restrictions. Have them watch for any new or worsening problems. General instructions Take lcul-vxb-pyqemql and prescription medicines only as told by [...] provider. Document Revised: 06/01/2020 Document Reviewed: 06/01/2020 XMOS Patient Education 2022 [employer]. Follow Up Care 03/16/2023 16:19:26 With:Fredi Ellington Address: [address] [place], [place] [phone] Business (1) When:03/19/2023 17:36:52 [facility]08-11-2023 Discharge summary Author John Monson [facility] March 13, 2023 9:40am Note Date/Time March 13, 2023 9: 40am [facility] [address] [place] [address] Discharge Summary Signed Patient: Rose Mary Schneider MR#: [id number] : 2005 Acct:[id number] Age/Sex: 17 / F Adm Date: 3 Loc: Room: [address] [place] [address]: John Monson MD Copies to: [...] admission note),the patient was pink slipped from [employer] and acknowledged she attempted suicide by overdosing [...] No Activity Restrictions Instructions: Depression, Adult (DC), [facility] DC Instructions Prescriptions: Continued levetiracetam [...] 14 Days Qty: 21 0RF Follow Up: [facility] [Outside] [facility] [Outside] (Sees Dr. Mackey.) Joann Zamorano DO [Courtesy/Consulting Physician] - (Contact your neurologist with any needs related to history of seizures. ) Fredi Ellington MD [Primary Care Provider] - (Contact your primary care providerwith any medical needs. ) Documented By: John Monson MD 03/13/239[address] Signed By: <Electronically signed by John Monson MD> 03/13/23939 [facility] Work Phone: 1(381) 274-866808-10-2023 Progress note Author John Monson [facility] March 12, 2023 1:37pm Note Date/Time March 12, 2023 1: 37pm [facility] [address] [place] [address] Psychiatry Progress Note Signed Patient: Rose Mary Schneider MR#: [id number] : 2005 Acct:[id number] Age/Sex: 17 / F Adm Date: 3 Loc: Room: [address] [place] [address] Type : ADM IN Attending Dr: John [...] signed by John Monson MD> 03/12/23 1337 [facility] Work Phone: 1(566) 601-737208-09-2023 History and physical note Author John Monson [facility] March 11, 2023 1:28pm Note Date/Time March 11, 2023 1:2 8pm [facility] [address] [place] [address] Psychiatry H&P Signed Patient: Rose Mary Schneider MR#: [id number] : 2005 Acct:[id number] Age/Sex: 17 / F Adm Date: 3 Loc: 1S Room: 9S1306-2 Type: ADM IN Attending Dr: John Monson MD Copies to: MD Fredi Avila MD~ Date of Service: 03/11/2023 HPI History of Present Illness History of present illness: This is a 17-year-old female with reported history of depression and suicidal ideation who presents for inpatient admission due to worsening of suicidal thoughts. Reportedly (per admission note),the patient was pink slipped from [employer] and acknowledged she attempted suicide by overdosing [...] and she stated that she was compliant. [facility]?: Yes Medical History (Updated [...] signed by John Monson MD> 03/11/23 1328 [facility] Work Phone: 1(309) 749-733108-08-2023 Hospital Discharge instructions Patient Education 03/10/2023 12:40:41 [...] services (911 in the [place] Call the [facility] and human services helpline (211 in the [place] Call or text a suicide hotline to speak with a trained counselor. The following suicide hotlines are available in the [place]: ?3-711-124-TALK ( or 099 in the [place] ?4-552-YILPYDS ( ). ?Text 728502. This is the Crisis Text Line in the [place] ? . This is a hotline for [place] speakers. ? . This is a hotline for TTY users. ?5-430-5-U-ELIZA ( ). This is a hotline for lesbian, schultz, bisexual, transgender, or questioning youth. ?For a list of hotlines in [place], visit suicide.org/hotlines/international/kjfkws-mckaytb-ruzyznzo.html Contact a crisis center or a local [...] to anyone or being with other people. ?Binc-oj-nwnw conversation is best to help them understand [...] physical and a mental health checkup. Take ywou-jof-ncpjyoe and prescription medicines only as told by [...] information National Suicide Prevention Lifeline: www.suicidepreventionlifeline.org Hopeline: www.hopeline.[employer] Mor[place] Foundation for Suicide Prevention: www.afsp.org The Eliza Project (for lesbian, schultz, bisexual, transgender, or questioning youth): www.thetrevorproject.org National [place] of Mental Health: www.nimh.nih.gov/health/topics/suicide-prevention Suicide Prevention Resources: afsp.org/evzapsu-gyhzrhfjbl-ctctlsszq Contact a health care provider if: You [...] department or crisis center. Call emergency services (588 in the [place] Call or text a [...] provider. Document Revised: 02/13/2022 Document Reviewed: 11/28/2021 XMOS Patient Education 2022 [employer]. Follow Up Care 03/07/2023 14:09:50 With:Fredi Rakel Address: [address] [place] [address]- Business (1) When: Unknown Comments:Call for followup appointment With:Joann Zamorano DO, [facility] Address: When:2 to 4 weeks [facility]08-08-2023 Evaluation + Plan noteExtracted from: Title:Discharge [...] release With When Contact Information Fredi Rakel [address] [place] [phone] Business (1) Additional Instructions: Call for followup [...] this morning are within normal limits Ordered: [facility] Hospital Care/Day Moderate 35 Minutes 99599 2. Hypokalemia, (E87.6: Hypokalemia)Hypokalemia Resolved Ordered: [facility] Hospital Care/Day Moderate 35 Minutes 75151 2. Suicidal ideation (R45.851: Suicidal ideations) No longer expressing suicidal ideation She was pink slipped yesterday; awaiting MHP Ordered: [facility] Hospital Care/Day Moderate 35 Minutes 79796 3. Antihistamines overdose (T45.0X1A: Poisoning by antiallergic and antiemetic drugs, accidental (unintentional), initial encounter) Ordered: [facility] Hospital Care/Day Moderate 35 Minutes 09363 5. Depression (F32.A: Depression, unspecified) Continue fluoxetine Ordered: [facility] Hospital Care/Day Moderate 35 Minutes 83660 6. Seizure (R56.9: Unspecified convulsions) Continue Keppra, Lamictal and lurasidone Seizure precautions Ordered: [facility] Hospital Care/Day Moderate 35 Minutes 18720 7. Obesity (E66.9: Obesity, unspecified) Ordered: [facility] Hospital Care/Day Moderate 35 Minutes 08066 8. On deep vein thrombosis (DVT) prophylaxis (Z79.899: Other jail (current) drug therapy) Early ambulation with SCDs Ordered: [facility] Hospital Care/Day Moderate 35 Minutes 01206 Orders: Transfer Patient to Transfer Patient to [...] deep vein thrombosis (DVT) prophylaxis (Z79.899: Other jail (current) drug therapy) Early ambulation and SCDs [...] deep vein thrombosis (DVT) prophylaxis (Z79.899: Other jail (current) drug therapy) Extracted from: Title:APSO Note [...] overdose with Tylenol/diphenhydramine. Secondary to suicide ideation/attempt. telephone sex worker evaluation. Acetaminophen level ekta to 40 but trended down to undetectable. Treating with IVF Thursday. LFTs within normal limit. Repeat LFTs and PT/INR in AM. Ordered: Basic Metabolic Panel Comprehensive Metabolic Panel Consult to Product Design Engineer eGFR Extra Lav Tube Hepatic Function Panel PT [facility] Hospital Care/Day Moderate 35 Minutes 73038 2. Suicidal ideation (R45.851: Suicidal ideations) Supportive care. telephone sex worker evaluation. Mental health evaluation in a.m. once medically stable. Ordered: Consult to Product Design Engineer [facility] Hospital Care/Day Moderate 35 Minutes 62837 3. Antihistamines overdose (T45.0X1A: Poisoning by antiallergic and antiemetic drugs, accidental (unintentional), initial encounter) Treated with charcoal. Respiratory status and circulation currently stable. Treated with IV fluid. Bladder scan so far not retaining urine. Ordered: [facility] Hospital Care/Day Moderate 35 Minutes 73360 4. Hypokalemia (E87.6: Hypokalemia) Secondary to gastrointestinal loss and IV fluid. We will replace orally. Ordered: potassium chloride, 40 mEq = 2 tab(s), Tab-ER, Oral, BID for 2 dose(s), Stop date 03/09/23 8:59:00 EDT, Routine, Start date 03/08/23 9:00:00 EDT, 03/08/23 8:36:00 EDT Comprehensive Metabolic Panel [facility] Care/Day Moderate 35 Minutes 15173 5. Depression (F32.A: Depression, unspecified) On fluoxetine. Ordered: [facility] Care/Day Moderate 35 Minutes 70307 6. Seizure (R56.9: Unspecified convulsions) No reported seizure. On Lamictal and Keppra. Ordered: lorazepam, 1 mg = 0.5 mL, Injection, IV Push, QID PRN Seizure, Routine, Start date 03/07/23 18:04:00 EDT 7. Obesity (E66.9: Obesity, unspecified) Recommend therapeutic lifestyle modification changes. 8. On deep vein thrombosis (DVT) prophylaxis (Z79.899: Other longwall shearer operator (current) drug therapy) SCDs. Disposition: Pending mental health evaluation in AM. I discussed the diagnosis and plan of care with the patient at the bedside. Moderate level of MDM based on addressing above issues. This documentation was transcribed using voice recognition software. Several attempts were made to ensure accuracy. However inadvertent computerized rollway man errors may be present. Jennifer Retana. Hospitalist. [...] observation. Ordered: Basic Metabolic Panel Consult to Product Design Engineer Hepatic Function Panel Initial Hospital Care/Day High 75 Minutes 28166 2. Suicidal ideation (R45.851: Suicidal ideations) Supportive care. Social work evaluation. Mental health evaluation once medically stable. Ordered: Consult to Product Design Engineer Initial Hospital Care/Day High 75 Minutes 70338 3. Antihistamines overdose (T45.0X1A: Poisoning by antiallergic and antiemetic drugs, accidental (unintentional), initial encounter) Treated with charcoal. Currently sedated with secured and circulation stable. Monitor patient with end-tidal CO2 monitor. We will observe for delirium/agitation and may treat with physostigmine. Bladder scan every 6 hours to check for urinary retention. Ordered: Initial Hospital Care/Day High 75 Minutes 83129 4. Depression (F32.A: Depression, unspecified) On fluoxetine at home. Ordered: Initial Hospital Care/Day High 75 Minutes 66554 5. Seizure (R56.9: Unspecified convulsions) On Keppra and Lamictal. Ordered: lorazepam, 1 mg = 0.5 mL, Injection, IV Push, QID PRN Seizure, Routine, Start date 03/07/23 18:04:00 EDT, 03/07/23 18:04:00 EDT Initial Hospital Care/Day High 75 Minutes 22758 6. Obesity (E66.9: Obesity, unspecified) Recommend therapeutic lifestyle modification changes. 7. On deep vein thrombosis (DVT) prophylaxis (Z79.899: Other longwall shearer operator (current) drug therapy) SCDs. Disposition: The patient [...] made to ensure accuracy. However inadvertent computerized rollway man errors may be present. Jennifer Retana. Hospitalist. [...] Continuous Salicylate Level XR Chest Single View [facility]08-08-2023 NoteAdmission and Discharge Information Admit Date/Time:03/08/2023 17:43 Admitting Physician - Orlando Wade DO Consulting Physician - Melecio Rubio MD Admitting Diagnoses: 1. Poisoning by 4-Aminophenol derivatives, intentional self-harm, initial encounter, 03/09/2023 2. Hypokalemia, 03/09/2023 Discharge Order Date Discharge Patient - Ordered -- 03/10/23 12:22:00 EDT, [address] Discharge Diagnoses 1. Intentional acetaminophen overdose, [...] the setting of OD, Consult and Co-manage Product Design Engineer Consult - Completed -- 03/07/23 17:58:00 EDT, [...] 60.3 % Lymph Auto - 28.7 % Peach Auto - 8.6 % Eos Auto - 1.9 % Basophil Auto - 0.5 % Neutro Absolute - 4.1 E9/L Lymph Absolute - 2.0 E9/L Peach Absolute - 0.6 E9/L Eos Absolute - [...] - 7.2 gm/dL A (more content not included)...[facility]: Result Comment: Electronically Signed By: Lawrence Reveles DO\Date and Time Signed: 03/10/23 12:27 [id number] NoteCRM entered the room to discuss dc planning. PCP, DME and insurance discussed. Patient is alert andinvolved in plan of care. Contact information provided and whiteboard updated. CRM spoke to pt and mother about pink slip. Pt is agreeable to inpt psych stay. Pending [facility] eval and bed. [place] slip willexp at 2pm. SW is following up. Ant dc 03/10. CRM to follow. [facility] will facilitate transport.[facility] Center[facility] above:Result Comment: Electronically Signed By: Peyton Mccarty\Date and Time Signed: 03/10/23 12:11 [id number] NoteChief Complaint I over dose of tylenol [...] vein thrombosis (DVT) prophylaxis (Z79.899: Other longwall shearer operator (current) drug therapy) Problem List/Past Medical [...] 12/04/2021 Immunizations Vaccine Date Status SARS-CoV-2 (COVID-19) [id number] 10/03/2022 Recorded (more content not included)...[facility]:Result Comment: Electronically Signed By: Irene Harding RN\.br\Date and Time Signed: 03/09/23 11:35 EDT\.br\Electronically Co-Signed By: Daniel Reaves DO\.br\Date and Time Co-Signed: 03/09/23 11:52 [id number] Note13:50: Nursing requested patient evaluation at bedside, [...] bid. EEG ordered, will be completed tomorrowFormerly [facility], [facility] InstituteComment on above: Result Comment: Electronically Signed By: ADELINE MARCANO, Akosua\.br\Date and Time Signed: 03/08/23 16:06 [id number] NoteChief Complaint patient c/o dizziness, lethargy and [...] 100 pills that are in the bottle. Cerulean very dizzy and sleepy was also having [...] 14:43:00) Lymph Auto: 28.7 % (03/07/23 14:43:00) Peach Auto: 8.6 % (03/07/23 14:43:00) Eos Auto: 1.9 % (03/07/23 14:43:00) Basophil Auto: 0.5 % (03/07/23 14:43:00) Neutro Absolute: 4.1 E9/L (03/07/23 14:43:00) Lymph Absolute: 2 E9/L (03/07/23 14:43:00) Peach Absolute: 0.6 E9/L (03/07/23 14:43:00) Eos Absolute: [...] (03/07/23 14:43:00) Bili I (more content not included)...[facility] Center[facility] above:Result Comment: Electronically Signed By: DEBBIE MARCANO, Jennifer\.br\Date and Time Signed: 03/07/23 18:12 [id number] Hospital Discharge instructions Patient Education 11/13/2022 18:45:15 [...] emergency services (911 in the [place] [facility] and human services helpline (211 in the [place] Go to your nearest emergency department. Call a suicide hotline to speak with a trained counselor. The following suicide hotlines are available in the [place]: ?5-951-231-TALK ( ). ?9-984-DJWTAHI ( ). ? . This is a hotline for [place] Verdean speakers. ? . This is a hotline for TTY users. ?5-164-4-U-ELIZA ( ). This is a hotline for lesbian, schultz, bisexual, transgender, or questioning youth. ?For a list of hotlines in [place], visit www.suicide.org/hotlines/international/phifbo-gtefyta-pssmkyjv.html Contact a crisis center or a local [...] list of crisis centers in [place], visit: suicideprevention.wa How to help yourself feel better Promise [...] day, even if you do notfeel sociable. Liqr-qm-ioif conversation is best to help them understand [...] day can help you feel better. Take qiqc-xli-gxdjhyi and prescription medicines only as told by [...] National Suicide Prevention Lifeline: www.suicidepreventionlifeline.org Hopeline: www.hopeline.com [place] Foundation for Suicide Prevention: www.afsp.org The Eliza [...] away. Call emergency services, go to your [facility] or crisis center, or call [...] 2004 Document Revised: 11/10/2019 Document Reviewed: 03/02/2018 XMOS Patient Education 2020 [employer]. Follow Up Care 11/13/2022 13:37:26 With:[facility] Address:Unknown When:11/16/2022 18:44:48 Comments:Return should you have worsening symptoms or feel unsafe. Call 911 or mental health counseling at any time. With:Fredi Ellington Address: [address] [place] [phone] [email or web address] (1) When:11/16/2022 18:44:44 Comments:Call the office of [...] you develop any new or worsening symptoms. [facility]04-13-2023 Evaluation + Plan noteExtracted from: Title:ED Note Author:Mono GONZALEZ Wilfredo M. Date: Suicidal ideation (R45.851: Suicidal ideations) Orders: Acetaminophen Level Automated Diff Beta hCG Qual CBC w/ Auto Diff Communication Order Comprehensive Metabolic Panel Consult to Mental Health Drug Screen Urine ECG Pediatric Ethanol Level Extra Blue Tube Salicylate Level UA With Cult Reflex [facility]03-11-2023 Hospital Discharge instructions Patient Education 10/11/2022 [...] what your health care provider or the transport company manager recommends for you. What are the [...] Follow these instructions at home: Medicines Take qauy-mix-dbcrefg and prescription medicines only as told by your health care provider. Avoid any medicines that contain acetaminophen for as long as told by your health care provider. Todo this: ?Check all medicine labels for the presence of acetaminophen. Acetaminophen is found in many aoub-sxz-bgxpnhp and prescription medicines. These include medicines for [...] the hospital. Call: Your local emergency services (265 in the [place] Your local poison control [...] 05/04/2015 Document Revised: 02/18/2019 Document Reviewed: 02/18/2019 XMOS Patient Education 2020 [employer] Follow Up Care 10/10/2022 21:52:59 With:[facility] Address:Unknown When:10/14/2022 Comments:Please follow-up with your primary care doctor in addition to your counselor in the next 1 to 2 days. Return to the ED for any new or worsening symptoms. With:Fredi Ellington Address: [address] [place], [place] [phone] Business (1) When:10/14/2022 [facility]03-10-2023 Evaluation + Plan noteExtracted from: Title:ED Note Author:oK Draper DO Date :10/10/22 Attempted suicide (T14.91XA: [...] ([facility]) Salicylate Level U Beta Hcg Qual [facility]03-06-2023 Evaluation + Plan noteExtracted from: Title:ED Note Author:Han Bolaños DO Date :10/06/22 Syncope (R55: Syncope and co llapse) Orders: Automated Diff Basic Metabolic Panel Capillary Glucose POC CBC w/ Auto Diff ECG Pediatric ED Cardiac Monitoring Oxygen Saturation Oxygen Therapy PT & PTT Saline Lock Insert Troponin 0 Hr. U Beta Hcg Qual UA With Cult Reflex XR Chest Single View [facility]03-06-2023 Hospital Discharge instructions Patient Education 10/06/2022 [...] your urine pale yellow. General instructions Take fyem-rsg-dngnbsv and prescription medicines only as told by [...] 07/20/2006 Document Revised: 07/02/2018 Document Reviewed: 06/28/2018 XMOS Patient Education 2020 [employer]. Follow Up Care 10/05/2022 23:50:01 With:Fredi Ellington Address: [address] [place], [place] [phone] Business (1) When:Within 3 Day(s) [facility]12-07-2022 Hospital Discharge instructions Patient Education 07/08/2022 [...] until he or she recovers. Medicines Give yoob-dhn-evbhigf and prescription medicines only as told by [...] check with your local DMV (department of [place]) to find out about local driving laws. [...] 07/20/2006 Document Revised: 10/07/2019 Document Reviewed: 10/07/2019 XMOS Patient Education 2019 [employer]. Follow Up Care 07/08/2022 18:51:22 With:Fredi Rakel Address: [address] [place], [place] [phone] Business (1) When:07/11/2022 [facility]12-06-2022 Evaluation + Plan note Diagnostic Tests Pending * Rapid COVID Antigen ([facility]) 07/08/22 * Influenza A&B Ag 07/08/22 * Group A Strep by PCR 07/08/22 [facility]12-02-2022 Hospital Discharge instructions Patient Education 07/04/2022 [...] and regular daily exercise. Give your child lexf-jxk-hvrauaw and prescription medicines only as told by [...] to find more information Epilepsy Foundation: www.epilepsy.com [place] Epilepsy Society: www.aesnet.org Contact a health care [...] 10/29/2017 Document Revised: 11/10/2019 Document Reviewed: 10/29/2017 XMOS Patient Education 2020 [employer] 07/04/2022 19:27:04 Non-Epileptic Seizures, Pediatric Non-Epileptic [...] she has a seizure. Give your child ffel-znh-snahiaz and prescription medicines only as told by [...] 10/26/2017 Document Revised: 07/02/2018 Document Reviewed: 10/26/2017 XMOS Patient Education 2020 [employer]. Follow Up Care 07/04/2022 18:04:21 With:Joann Zamorano Address: [facility] [address] [place] [phone]- Business (1) When:07/07/2022 19:23:00 With:Fredi Rakel Address: [address] [place] [address] [place] [address]- Business (1) When:07/07/2022 19:22:49 Comments:Follow-up with your primary care provider in 3 to 5 days. If symptoms worsen, do not improve, or new symptoms arise please report back to emergency department for further evaluation. [facility]11-30-2022 Hospital Discharge instructions Patient Education 07/02/2022 [...] she has a seizure. Give your child mmfb-wwl-oudpvdx and prescription medicines only as told by [...] 10/26/2017 Document Revised: 07/02/2018 Document Reviewed: 10/26/2017 XMOS Patient Education 2020 [employer]. 07/02/2022 16:03:45 Helping Your Child Manage Non-Epileptic [...] and regular daily exercise. Give your child ikhz-wcm-srcnjio and prescription medicines only as told by [...] to find more information Epilepsy Foundation: www.epilepsy.com [place] Epilepsy Society: www.aesnet.org Contact a health care [...] 10/29/2017 Document Revised: 11/10/2019 Document Reviewed: 10/29/2017 XMOS Patient Education 2020 [employer]. Follow Up Care 07/02/2022 13:18:31 With:Joann Zamorano Address:Unknown When:07/05/2022 15:30:57 Comments:Follow-up with Dr. Zamorano for further evaluation of your seizure-like activity. With:Fredi Ellington Address: [address] [place], [place] [phone] [facility] (1) When:07/05/2022 15:30:49 Comments:Follow-up with your primary care provider in 3 to 5 days. If symptoms worsen, do not improve, or new symptoms arise please report back to emergency department for further evaluation. [facility]11-30-2022 Evaluation + Plan noteExtracted from: Title:ED Note Author:Alexandru Barajas PA-C te:07/02/22 Seizure-like activity (R56.9 : Unspecified convulsions) Orders: Automated Diff Basic Metabolic Panel CBC w/ Auto Diff [facility] No data available for this section [facility] Future Appointments Appointment Date:02/16/2024 10:30:00 AM Scheduled Provider: Location:.[facility] Appointment Type:US Abdominal/Pelvis ([facility]) Future Scheduled Tests Radiology* US Gallbladder 02/16/24 * CT Abdomen w/ Contrast 02/16/24 [facility] [place] Evaluation + Plan note Future Appointments Appointment Date:04/07/2024 10:00:00 AM Scheduled Provider:Zenon Hernandez MD Location:[facility] Appointment Type:BAD Follow Up [facility] Evaluation + Plan note Future Appointments Appointment Date:04/25/2024 01:15:00 PM Scheduled Provider:Zenon Hernandez MD Location:[facility] Appointment Type:[facility] Follow Up [facility] evaluation noteNo assessment information available [facility] Work Phone: evaluation note* Diagnosis Onset Date Resolution Status Depression acute Suicidal ideations acute [facility] Work Phone: evaluation note* Diagnosis Macromastia- Primary Hypertrophy of breast Thoracic spine pain Pain in thoracic spine [facility] Diagnosis Psychogenic nonepileptic seizure [...] instructions No data available for this section [facility] Additional Instructions Regular Diet No Activity [facility] Work Phone: Progress note No data available for this section [facility] Summary Purpose Family History No Family [...] section and content) DATE CREATED AUTHOR 09/20/2018 [facility] DATE CREATED AUTHOR AUTHOR'S ORGANIZ ATION 10/27/2019 [employer] DATE CREATED AUTHOR AUTHOR'S ORGANIZ ATION 11/08/2022 [facility] DATE CREATED AUTHOR AUTHOR'S ORGANIZ ATION 03/11/2023 [facility] DATE CREATED AUTHOR AUTHOR'S ORGANIZ ATION 07/02/2023 [facility] DATE CREATED AUTHOR AUTHOR'S ORGANIZ ATION 01/13/2024 [facility] DATE CREATED AUTHOR AUTHOR'S ORGANIZ ATION 01/15/2024 [facility] DATE CREATED AUTHOR AUTHOR'S ORGANIZ ATION 01/16/2024 [facility] DATE CREATED AUTHOR AUTHOR'S ORGANIZ ATION 02/24/2024 [facility] DATE CREATED AUTHOR AUTHOR'S ORGANIZ ATION 03/05/2024 [facility] DATE CREATED AUTHOR AUTHOR'S ORGANIZ ATION 03/09/2024 [facility] DATE CREATED AUTHOR AUTHOR'S ORGANIZ ATION 03/16/2024 [facility] DATE CREATED AUTHOR AUTHOR'S [...] CREATED AUTHOR AUTHOR'S ORGANIZ ATION 08/23/2024 [facility] DATE CREATED AUTHOR AUTHOR'S ORGANIZ ATION 11/10/2024 [facility] DATE CREATED AUTHOR AUTHOR'S ORGANIZ ATION 11/13/2024 [facility] DATE CREATED AUTHOR AUTHOR'S ORGANIZ ATION 01/31/2025 [facility] DATE CREATED AUTHOR AUTHOR'S ORGANIZ ATION 03/11/2025 [facility] Care Team (unrecognized sect ion and content) [...] Monson MD Admit Provider, Attending Provider Active 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 Communications 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 Relationship Specialty Start Date End Date Fredi Ellington MD [address] [place] [address] PCP - General Family Medicine 06/10/23 Police [employer] Dispatcher Relationship Specialty Start Date End Date Fredi Ellington MD [address] [place] [address] PCP - General Family Medicine 02/08/24 [employer] Dispatcher Relationship Specialty Start Date End Date Fredi Ellington MD [address] [place] [address] PCP - General Family Medicine 02/08/24 [employer] Dispatcher Relationship Specialty Start Date End Date Fredi Ellington MD [address] [place] [address] PCP - General Family Medicine 02/08/24 Police Communications 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 Relationship Specialty Start Date End Date Fredi Ellington MD [address] [place] [facility] [address] PCP - General Family Medicine 02/08/24 Police Communications 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 Relationship Specialty Start Date End Date Fredi Ellington MD [address] [place] [facility] [address] PCP - General Family Medicine 02/08/24 Police Communications 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 Relationship Specialty Start Date End Date Fredi Ellington MD [address] [place] [facility] [address] PCP - General Family Medicine 02/08/24 Police Communications 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 Relationship Specialty Start Date End Date Fredi Ellington MD [address] [place] [facility] [address] PCP - General Family Medicine 02/08/24 Police Communications Dispatcher Relationship Specialty Start Date End Date Fredi Ellington MD [address] [place] [facility] [address] PCP - General Family Medicine 02/08/24 Police [employer] Dispatcher Relationship Specialty Start Date End Date Fredi Ellington MD [address] [place] [facility] [address] PCP - General Family Medicine 02/08/24 Police Communications Dispatcher Relationship Specialty Start Date End Date Fredi Ellington MD [address] [place] [facility] [address] PCP - General Family Medicine 02/08/24 [employer] Dispatcher Relationship Specialty Start Date End Date Fredi Ellington MD [address] [place] [address] PCP - General Family Medicine 02/08/24 [employer] Dispatcher Relationship Specialty Start Date End Date Fredi Ellington MD [address] [place] [address] PCP - General Family Medicine 02/08/24 [employer] Dispatcher Relationship Specialty Start Date End Date Fredi Ellington MD [address] [place] [address] PCP - General Family Medicine 02/08/24 [employer] Dispatcher Relationship Specialty Start Date End Date Fredi Ellington MD [address] [place] [address] PCP - General Family Medicine 02/08/24 [employer] Communications Dispatcher Relationship Specialty Start Date End Date Fredi Ellington MD [address] [place] [address] PCP - General Family Medicine 02/08/24 Goals [...] - LYNNETTE Fredi Ellington MD [address] [place] [address] Valorie Hansen MD [address] [place] [id number] Referral ID Status Reason Start Date Expiration Date V isits Requested Visits Authorized [id number] Pending Review 06/30/2023 07/24/2024 1 1 Reason [...] BE BASED ON THE PRIMARY CLINICAL RECORDS. [facility] [employer] [facility]. provides no warranty or guarantee of the accuracy or completeness of information in this document.
[2025-03-15 11:06] LABS: Cholesterol 315 mg/dL (<=200); Glucose 108 mg/dL (74-106); HDL Cholesterol 74 mg/dL (40-60); Triglycerides 331 mg/dL (<=150); VLDL CHOLESTEROL 66.2 mg/dL
== END 2025-03-15 10:17 | disposition home or self-care (01) ==
PROVIDERS: PCP Family Medicine; Visit Provider Psychiatry & Neurology Psychiatry
DX: F31.9 Bipolar disorder, unspecified (principal); Z79.899 Other long term (current) drug therapy; J01.90 Acute sinusitis, unspecified; K52.9 Noninfective gastroenteritis and colitis, unspecified
CPT/HCPCS: 36415; 80061; 82947; 83036; 86615

== ENCOUNTER 2025-03-23 04:56 | Inpatient (IN) | payer OTHER, SELFPAY ==
[2025-03-23] VITALS (83 sets, daily range): BP systolic 87–149; BP diastolic 51–90; PULSE 59–184; TEMP 35.8–36.8
--- OUTSIDE RECORDS SUMMARY | 2025-03-23 05:03 | XMS_ITS | CCD ---
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 Attending Unavailable Laurel, Melecio Consulting Unavailable Jennifer RETANA Admitting Unavailable MD Melecio Rubio Consulting Unavailable Laurel, Melecio Consulting Unavailable Laurel, Melecio Consulting Unavailable Laurel, Melecio Consulting Unavailable Laurel, Melecio Consulting Unavailable Laurel, Melecio Consulting Unavailable Laurel, Melecio Consulting Unavailable Laurel, Melecio Consulting Unavailable Radha Whipple Attending Unavailable Radha Whipple Attending Unavailable DAYNAMOCHERYL Stokes Referring UnavailAkosua Moore Admitting Unavailable Akosua LR Attending Unavailable Ramiro, Melecio Consulting Unavailable MD Melecio Rubio Consulting Unavailable Laurel, Melecio Consulting Unavailable Laurel, Melecio Consulting Unavailable Laurel, Melecio Consulting Unavailable Laurel, Melecio Consulting Unavailable Laurel, Melecio Consulting Unavailable Laurel, Melecio Consulting Unavailable Laurel, Melecio Consulting Unavailable MISTY MACKEY Attending Unavailable [...] Unavailable Fredi Ellington MD Primary Care Provider [phone] Hate, Astrit H Attending Unavailable Miky, Han S. Attending Unavailable Hajdari, Astrit H Attending Unavailable Fredi Ellington MD Primary Care Provider [phone] Robson White MD Attending Provider [phone] Jenn Sapp DO Emergency Provider Radha Whipple Attending Unavailable Radha Whipple Attending Unavailable Fredi Ellington MD Primary Care Provider [phone] Jenn Sapp Admitting Unavailable Jenn Sapp Attending Unavailable Fredi Ellington Primary Care Unavailable Robson White Admitting Unavailab Robson Aj Attending Unavailab Fredi Whitfield Primary Care Unavailable ROBBROLANDAY Attending Unavailable NURY MARTINA Attending Unavailable ROBB, RANJIT Attending Unavailable NURY, MARTINA Referring Unavailable ROBB, RANJIT Attending Unavailable ROBB, RANJIT Attending Unavailable NURY, MARTINA Attending Unavailable ROBB, RANJIT Attending Unavailable NURY, MARTINA Attending Unavailable ROBB, RANJIT Attending Unavailable NURY, MARTINA Attending Unavailable NURY, MARTINA Attending Unavailable ROBB, RANJIT Attending Unavailable ROBB, RANJIT Attending Unavailable PEYTON QUIROZ Attending Unavailable Medications [...] #3) 300-30 MG tablet Indications: Third trimester ([facility]) , Stomach pain Take 1 tablet by [...] hours as needed for pain and pain [place] 325 mg-5 mg oral tablet 1 tab(s), [...] oral solution (4 sources) alpha-Adrenergic Agonist, Uncompetitive E-hnribf-Y-aspartat e Receptor Antagonist, Sigma-1 Agonist Start: 05-22-2024 take 5 mL by mouth four times daily Bromfed DM oral syrup 5 mL, Oral, QID for cold symptoms, 200 mL, Refill(s) 0, [facility]/pharmacy #[id number], 170.2, cm, 05/22/24 21:55:00 EDT, Height/Length [...] (20 sources) Estrogen Start: 03-10-2023 Norethindrone-E.Estra diol-Iron ( Fe 08/22 ()) 1 mg-20 mcg (21)/75 mg (7) tablet Active 1 TAB PO Daily March 09, 2023 11:00pm Start: 03-10-2023 Norethindrone- E.Estradiol-Iron ( Fe 08/22 ()) 1 mg-20 mcg (21)/75 mg (7) tablet Active 1 TAB PO Daily March 10, 2023 12:00am Start: 12-19-2022 take 1 tablet by jaz once daily 08/22 oral tablet Refill(s) 0, 2 8 EA, TAKE 1 TABLET BY MOUTH EVERY DAY Start Date: 12/19/22 Status: Ordered Repeat number: 1 take 1 tablet by [facility] once daily 08/22 1-20 MG-MCG tablet Take 1 tablet by mouth daily. 0 Active famotidine 10 mg oral tablet (11 sources) Histamine-2 Receptor Antagonist Start: 01-13-2024 take 1 tablet by mouth twice daily as needed for pain Pepcid AC 10 mg oral tablet 10 mg = 1 tab(s), Oral, BID, PRN Pain, # 30 tab(s), Refills(s) 0, Pharmacy: [facility]/pharmacy #[id number], 165.1, cm, 01/13/24 18:35:00 [...] BID, # 60 tab(s), Refills(s) 0, Pharmacy: [facility]/pharmacy #[id number], 165.1, cm, 05/11/23 8:01:00 EDT, Height/Length [...] anxiety, # 15 tab(s), Refills(s) 0, Pharmacy: [facility]/pharmacy #[id number], 165, cm, 07/04/22 18:11:00 EST, Height/Length [...] MG tablet Indications: Nausea and vomiting during ([facility]) Take 1 tablet (10 mg) by mouth [...] (1 source) Polyene Antifungal Start: 06-16-2023 nystatin 230034 UNIT/GM Powder powder Apply 1 Application topically. 0 06/16/2023 Active ondansetron 4 mg disintegrating oral tablet (20 sources) Serotonin-3 Receptor Antagonist Start: 08-18-2024 End: 03-09-2025 take 1 tablet by mouth every six hours for nausea ondansetron ODT (Zofran-ODT) 4 MG disintegrating tablet Indications: Nausea and vomiting during ([facility]) Take 1 tablet (4 mg) by mouth [...] q4hr, # 20 tab(s), Refills(s) 0, Pharmacy: [facility]/pharmacy #[id number], 170, cm, 08/21/24 16:58:00 EST, Height/Length [...] Pain, # 8 tab(s), Refills(s) 0, Pharmacy: [facility]/pharmacy #[id number], 165.1, cm, 01/12/24 15:00:00 EDT, Height/Length Dosing, 117.7, kg, 01/12/24 15:00:00 EDT, Weight Dosing Start Date: 01/12/24 Status: Ordered Zofran ODT 4 mg Tab-Dis (20 sources) Start: 05-22-2024 take 1 tablet by mouth every eight hours as needed for nausea Zofran ODT 4 mg Tab-Dis 4 mg = 1 tab(s), Oral, q8hr, PRN Nausea/Vomiting, # 12 tab(s), Refills(s) 0, [id number] 170.2, cm, 05/22/24 21:55:00 EDT, Height/Length Dosing, 115.8, kg, 05/22/24 21:55:00 EDT, Weight Dosing Start Date: 05/22/24 Status: Ordered Quantity: 12.0 Unit: tab(s) Repeat number: 1 Start: 05-22-2024 take 1 tablet by jaz th every eight hours as needed for nausea Zofran ODT 4 mg Tab-Dis 4 mg = 1 tab(s), Oral, q8hr, PRN Nausea/Vomiting, # 12 tab(s), Refills(s) 0, [id number], 170.2, cm, 05/22/24 21:55:00 EDT, Height/Length Dosing, 115.8, kg, 05/22/24 21:55:00 EDT, Weight Dosing Start Date: 05/22/24 Status: Ordered Start: 01-12-2024 take 1 tablet by jaz th every eight hours as needed for nausea Zofran ODT 4 mg Tab-Dis 4 mg = 1 tab(s), Oral, q8hr, PRN Nausea/Vomiting, # 12 tab(s), Refills(s) 0, [id number], 165.1, cm, 01/12/24 15:00:00 EDT, Height/Length [...] Nausea/Vomiting, # 12 tab(s), Refills(s) 0, [id number], 165.1, cm, 01/12/24 15:00:00 EDT, Height/Length [...] current use of drug therapy; Translations: [Other intermodal dispatcher (current) drug therapy] Onset: 3 Episodic Other circulatory disease (2 sources) Elevated blood-pressure reading without diagnosis of hypertension; Translations: [Elevated blood-pressure reading, without diagnosis of hypertension] 03-21-2025 Episodic Other complications of (1 source) Vomiting [...] [36 weeks gestation of ] 03-02-2025 Episodic Residual codes; unclassified (2 sources) Gestation period, 37 weeks; Translations: [37 weeks gestation of ] 03-15-2025 Episodic Residual codes; unclassified (2 sources) Gestation period, 38 weeks; Translations: [38 weeks gestation of ] 03-21-2025 Episodic Spondylosis; intervertebral disc disorders; other back [...] Range Facility Urinalysis macro (dipstick) panel (U)on 03-21-2025 Bilirubin, UA Negative Negative - 4(70) +++ mg/dL [facility] Blood, UA Negative Negative - 50 Balwinder/mcL [facility] Clarity, UA Clear [facility] Color, UA Hansa [facility] Glucose, UA Negative Negative - 1999(110) ++++ mg/dL [facility] Interpretation and review of laboratory results Abnormal [facility] Ketones, UA Negative Negative - 160(16) ++++ mg/dL [facility] Leukocytes, UA Positive Negative - 500+++ Uzair/mcL [facility] Nitrite, UA Negative Negative - Positive [facility] pH, UA 6 5 - 9 [facility] Protein, UA Positive Negative - 1999(20) ++++ mg/dL [facility] Comment on above: 1+ Spec Grav, UA 1.03 1 - 1.03 [facility] Urobilinogen, UA 1.0 0.2 - 12 mg/dL [facility] Urinalysis macro (dipstick) panel (U)on 03-15-2025 Bilirubin, UA Negative Negative - 4(70) +++ mg/dL [facility] Blood, UA Negative Negative - 50 Balwinder/mcL [facility] Clarity, UA Clear [facility] Color, UA Hansa [facility] Glucose, UA Negative Negative - 1999(110) ++++ mg/dL [facility] Interpretation and review of laboratory results Abnormal [facility] Ketones, UA Negative Negative - 160(16) ++++ mg/dL [facility] Leukocytes, UA Negative Negative - 500+++ Uzair/mcL [facility] Nitrite, UA Negative Negative - Positive [facility] pH, UA 6 5 - 9 [facility] Protein, UA Negative Negative - 1999(20) ++++ mg/dL [facility] Spec Grav, UA 1.03 1 - 1.03 [facility] Urobilinogen, UA 1.0 0.2 - 12 mg/dL [facility] Urinalysis macro (dipstick) panel (U)on 03-09-2025 Bilirubin, UA Negative Negative - 4(70) +++ mg/dL [facility] Blood, UA Negative Negative - 50 Balwinder/mcL [facility] Clarity, UA Clear [facility] Color, UA Yellow [facility] Glucose, UA Negative Negative - 1999(110) ++++ mg/dL [facility] Interpretation and review of laboratory results Normal [facility] Ketones, UA Negative Negative - 160(16) ++++ mg/dL [facility] Leukocytes, UA Negative Negative - 500+++ Uzair/mcL [facility] Nitrite, UA Negative Negative - Positive [facility] pH, UA 7 5 - 9 [facility] Protein, UA Negative Negative - 1999(20) ++++ mg/dL [facility] Spec Grav, UA 1.01 1 - 1.03 [facility] Urobilinogen, UA 1.0 0.2 - 12 mg/dL [facility] Urinalysis macro (dipstick) panel (U)on 03-02-2025 Bilirubin, UA Negative Negative - 4(70) +++ mg/dL [facility] Blood, UA Negative Negative - 50 Balwinder/mcL [facility] Clarity, UA Clear [facility] Color, UA Yellow [facility] Glucose, UA Negative Negative - 1999(110) ++++ mg/dL [facility] Interpretation and review of laboratory results Normal [facility] Ketones, UA Negative Negative - 160(16) ++++ mg/dL [facility] Leukocytes, UA Negative Negative - 500+++ Uzair/mcL [facility] Nitrite, UA Negative Negative - Positive [facility] pH, UA 6 5 - 9 [facility] Protein, UA Negative Negative - 1999(20) ++++ mg/dL [facility] Spec Grav, UA 1.015 1 - 1.03 [facility] Urobilinogen, UA 1.0 0.2 - 12 mg/dL [facility] US OB FOLLOW UP TRANSABDOMIN AL APPROACHon [...] UA Negative Negative - 4(70) +++ mg/dL [facility] Blood, UA Negative Negative - 50 Balwinder/mcL [facility] Clarity, UA Clear [facility] Color, UA Yellow [facility] Glucose, UA Negative Negative - 1999(110) ++++ mg/dL [facility] Interpretation and review of laboratory results Abnormal [facility] Ketones, UA Negative Negative - 160(16) ++++ mg/dL [facility] Leukocytes, UA Negative Negative - 500+++ Uzair/mcL [facility] Nitrite, UA Negative Negative - Positive [facility] pH, UA 7 5 - 9 [facility] Protein, UA Trace Negative - 1999(20) ++++ mg/dL [facility] Spec Grav, UA 1.015 1 - 1.03 [facility] Urobilinogen, UA 0.2 0.2 - 12 mg/dL [facility] Urinalysis macro (dipstick) panel (U)on 02-01-2025 Bilirubin, UA Positive Negative - 4(70) +++ mg/dL [facility] Comment on above: small Blood, UA Negative Negative - 50 Balwinder/mcL [facility] Clarity, UA Clear [facility] Color, UA Yellow [facility] Glucose, UA Negative Negative - 1999(110) ++++ mg/dL [facility] Interpretation and review of laboratory results Abnormal [facility] Ketones, UA Negative Negative - 160(16) ++++ mg/dL [facility] Leukocytes, UA Positive Negative - 500+++ Uzair/mcL [facility] Comment on above: small Nitrite, UA Negative Negative - Positive [facility] pH, UA 7.5 5 - 9 [facility] Protein, UA Positive Negative - 1999(20) ++++ mg/dL [facility] Comment on above: 100mg/dL Spec Grav, UA 1.02 1 - 1.03 [facility] Urobilinogen, UA 1.0 0.2 - 12 mg/dL [facility] Urinalysis macro (dipstick) panel (U)on 01-18-2025 Bilirubin, UA Negative Negative - 4(70) +++ mg/dL [facility] Blood, UA Negative Negative - 50 Balwinder/mcL [facility] Clarity, UA Clear [facility] Color, UA Yellow [facility] Glucose, UA Negative Negative - 1999(110) ++++ mg/dL [facility] Interpretation and review of laboratory results Abnormal [facility] Ketones, UA Negative Negative - 160(16) ++++ mg/dL [facility] Leukocytes, UA Negative Negative - 500+++ Uzair/mcL [facility] Nitrite, UA Negative Negative - Positive [facility] pH, UA 7 5 - 9 [facility] Protein, UA Negative Negative - 1999(20) ++++ mg/dL [facility] Spec Grav, UA 1.015 1 - 1.03 [facility] Urobilinogen, UA 0.2 0.2 - 12 mg/dL [facility] US OB LIMITED 1+ FETUSESon 0 12-28-2024 [...] II, MD, PHD at 28-Dec-2024 11:19:30 PM [facility] Normal Not Available Comment on above: Order Comment: US OB INCOMPLETE ANATOMY Estimated Date of Delivery: 03/30/25 Gestational Age as of 11/30/2024: 22w6d Urinalysis macro (dipstick) panel (U)on 12-28-2024 Bilirubin, UA Negative Negative - 4(70) +++ mg/dL [facility] Blood, UA Negative Negative - 50 Balwinder/mcL [facility] Clarity, UA Clear [facility] Color, UA Yellow [facility] Glucose, UA Negative Negative - 2000(110) ++++ mg/dL [facility] Interpretation and review of laboratory results Abnormal [facility] Ketones, UA Negative Negative - 160(16) ++++ mg/dL [facility] Leukocytes, UA Negative Negative - 500+++ Uzair/mcL [facility] Nitrite, UA Negative Negative - Positive [facility] pH, UA 7 5 - 9 [facility] Protein, UA Trace Negative - 2000(20) ++++ mg/dL [facility] Spec Grav, UA 1.025 1 - 1.03 [facility] Urobilinogen, UA 1.0 0.2 - 12 mg/dL [facility] ALL CBC WITH AUTO DIFFon BASOPHILS ABSOLUTE AUTO 0 N [facility] Basophils/100 WBC (Bld) 0.2 % 0.2 - 2.0 % [facility] Eosinophils/100 WBC (Bld) 2.3 % 0.9 - 7.0 % [facility] Erythrocyte distribution width (RBC) [Ratio] 13.5 % 11.0 - 15.0 % [facility] Hematocrit (Bld) [Volume fraction] 32.7 % Low 36.0 - 48.0 % [facility] Hemoglobin (Bld) [Mass/Vol] 11 g/dL Low 12.0 - 16.0 g/dL [facility] IMMATURE GRANULOCYTES ABS AUTO 0.03 [facility] Immature granulocytes/100 WBC (Bld) 0.3 % 0.0 - 0.5 % [facility] Interpretation and review of laboratory results Abnormal [facility] LYMPHOCYTES ABSOLUTE AUTO 2.2 [facility] Lymphocytes/100 WBC (Bld) 25 % 20.5 - 60.0 % [facility] MCH (RBC) [Entitic mass] 28.7 pg 26.7 - 34.0 pg [facility] MCHC (RBC) [Mass/Vol] 33.6 g/dL 29.9 - 35.2 g/dL [facility] MCV (RBC) [Entitic vol] 85.4 fL 81.0 - 99.0 fL [facility] MONOCYTES ABSOLUTE AUTO 0.5 N [facility] Monocytes/100 WBC (Bld) 5.3 % 1.7 - 12.0 % [facility] NEUTROPHILS ABSOLUTE AUTO 5.9 [facility] Neutrophils/100 WBC (Bld) 66.9 % 43.0 - 75.0 % [facility] Platelet mean volume (Bld) [Entitic vol] 9.7 fL 9.5 - 13.5 fL [facility] TBH EO # 0.2 [facility] TB PLT [facility] RBC 3.83 Low [facility] TB WBC 8.8 [facility] Urinalysis macro (dipstick) panel (U)on 11-30-2024 Bilirubin, UA Negative Negative - 4(70) +++ mg/dL [facility] Blood, UA Negative Negative - 50 Balwinder/mcL [facility] Clarity, UA Clear [facility] Color, UA Yellow [facility] Glucose, UA Negative Negative - 1999(110) ++++ mg/dL [facility] Interpretation and review of laboratory results Abnormal [facility] Ketones, UA Positive Negative - 160(16) ++++ mg/dL [facility] Comment on above: trace Leukocytes, UA Negative Negative - 500+++ Uzair/mcL [facility] Nitrite, UA Negative Negative - Positive [facility] pH, UA 7 5 - 9 [facility] Protein, UA Positive Negative - 1999(20) ++++ mg/dL [facility] Comment on above: 30 Spec Grav, UA 1.025 1 - 1.03 [facility] Urobilinogen, UA 1.0 0.2 - 12 mg/dL [facility] ED Note-Physicianon 11-10-19 ED Note-Physician ED Note-Physician Basic Information Time Seen: Pablo Fu PA-C 11/08/2024 16:18 Chief Complaint Pt presnets to [...] discharged home with close follow-up with her BRICK PITCHER Dr. Zamudio. We discussed if she has [...] Ranjit ZAMUDIO In 3 days 11/11/2024 EDT [facility] [address] [facility] [place] [address]- Business (1) Additional Instructions: Fredi Ellington In 3 days [address] [facility] [address] [place] [address] [address] [place] [address]- Business (1) Additional Instructions: Patient Education Nausea and Vomiting, Ad (more content not included)... Normal [facility] Comment on above: Result Comment: Elec [...] Botello MD Transcribed by: GARTH Technologist: RENNY [facility] US Limitedon 11-09 US Limited Exam Date/Time: [...] REPORT Dictated: 11/09/2024 9:36 am Mina Botello MD Signed (Electronic Signature): 11/09/2024 9:36 am Signed by: Mina Botello MD Transcribed by: GARTH Technologist: RENNY [facility] Urinalysis macro (dipstick) panel (U)on 11-09-2024 Bilirubin, UA Negative Negative - 4(70) +++ mg/dL [facility] Blood, UA Negative Negative - 50 Balwinder/mcL [facility] Clarity, UA Clear [facility] Color, UA Yellow [facility] Glucose, UA Negative Negative - 1999(110) ++++ mg/dL [facility] Interpretation and review of laboratory results Abnormal [facility] Ketones, UA Negative Negative - 160(16) ++++ mg/dL [facility] Leukocytes, UA Positive Negative - 500+++ Uzair/mcL [facility] Comment on above: small Nitrite, UA Negative Negative - Positive [facility] pH, UA 7 5 - 9 [facility] Protein, UA Negative Negative - 1999(20) ++++ mg/dL [facility] Spec Grav, UA 1.02 1 - 1.03 [facility] Urobilinogen, UA 0.2 0.2 - 12 mg/dL [facility] BMPon 11-08-2024 Anion gap [Moles/Vol] 12 mmol/L Normal 6-16 [facility] Comment on above: Performed By: #### 2 [id number] #### [facility] [address] [place] [address] Calcium [Mass/Vol] 8.4 mg/dL Low 8.9-11.1 [facility] Comment on above: Performed By: #### 2 [id number] #### [facility] [address] [place] [address] Chloride [Moles/Vol] 103 mmol/L Normal 101-111 [facility] Comment on above: Performed By: #### 2 [id number] #### [facility] [address] [place] [address] CO2 [Moles/Vol] 24 mmol/L Normal 21-31 [facility] Comment on above: Performed By: #### 2 [id number] #### [facility] [address] [place] [address] Creatinine [Mass/Vol] 0.6 mg/dL Normal 0.5-1.3 [facility] Comment on above: Performed By: #### 2 [id number] #### [facility] [address] [place] [address] Glucose [Mass/Vol] 97 mg/dL Normal 55-199 [facility] Comment on above: Performed By: #### 2 [id number] #### [facility] [address] [place] [address] Potassium [Moles/Vol] 3.5 mmol/L Normal 3.5-5.3 [facility] Comment on above: Performed By: #### 2 [id number] #### [facility] [address] [place] [address] Sodium [Moles/Vol] 135 mmol/L Normal 135-145 [facility] Comment on above: Performed By: #### 2 [id number] #### [facility] [address] [place] [address] Urea nitrogen [Mass/Vol] 6 mg/dL Normal 5-21 [facility] Comment on above: Performed By: #### 2 [id number] #### [facility] [address] [place] [address] Urea nitrogen/Creatinine [Mass ratio] 10 No Units Normal 10-20 [facility] Comment on above: Performed By: #### 2 [id number] #### [facility] [address] [place] [address] BhCG Quanton 11-08-2024 [place] [address] m[IU]/mL High 1-3 [facility] Comment on above: Result Comment: 'F N ON < 1 - 3' ' 0.2 - 1 WEEK = 5 TO 50' ' 1 - 2 WEEKS = 50 - 500' ' 2 - 3 WEEKS = 100 - 5000' ' 3 - 4 WEEKS = 500 - 65365' ' 4 - 5 WEEKS = 1000 - 61513' ' 5 - 6 WEEKS = 80024 - 140616' ' 6 - 8 WEEKS = 79924 - 876078' ' 8 - 12 WEEKS = 17107 - 816056' Performed By: #### 2 [id number] #### [facility] [address] [place] [address] CBC w/ Auto Diffon 5 Basophils/100 WBC (Bld) 0.4 % Normal 0.0-2.0 [facility] Comment on above: Performed By: #### 2 [id number] #### [facility] [address] [place] [address] Basophils/Leukocytes Auto (Bld) [Pure # fraction] 0.0 E9/L Normal 0.0-0.2 [facility] Comment on above: Performed By: #### 2 [id number] #### [facility] [address] [place] [address] Eosinophils (Bld) [#/Vol] 0.1 E9/L Normal 0.0-0.5 [facility] Comment on above: Performed By: #### 2 [id number] #### [facility] [address] [place] [address] Eosinophils/100 WBC (Bld) 1.8 % Normal 0.0-8.0 [facility] Comment on above: Performed By: #### 2 [id number] #### [facility] [address] [place] [address] Erythrocyte distribution width (RBC) [Ratio] 14.1 % Normal 10.9-14.2 [facility] Comment on above: Performed By: #### 2 [id number] #### [facility] [address] [place] [id number] Hematocrit (Bld) [Volume fraction] 33.2 % Low 34.0-46.0 [facility] Comment on above: Performed By: #### 2 [id number] #### [facility] [address] [place] [address] [address] Hemoglobin (Bld) [Mass/Vol] 11.6 g/dL Low 12.0-16.0 [facility] Comment on above: Performed By: #### 2 [id number] #### [facility] [address] [place] [address] Lymphocytes (Bld) [#/Vol] 1.8 E9/L Normal 1.0-4.0 [facility] Comment on above: Performed By: #### 2 [id number] #### [facility] [address] [place] [address] Lymphocytes/100 WBC (Bld) 21.6 % Normal 14.0-50.0 [facility] Comment on above: Performed By: #### 2 [id number] #### [facility] [address] [place] [address] MCH (RBC) [Entitic mass] 29.0 pg Normal 27.0-34.0 [facility] Comment on above: Performed By: #### 2 [id number] #### [facility] [address] [place] [address] MCHC (RBC) [Mass/Vol] 35.0 g/dL Normal 31.4-36.0 [facility] Comment on above: Performed By: #### 2 [id number] #### [facility] [address] [place] [address] MCV (RBC) [Entitic vol] 82.8 fL Normal 80.0-100.0 [facility] Comment on above: Performed By: #### 2 [id number] #### [facility] [address] [place] [address] Monocytes (Bld) [#/Vol] 0.5 E9/L Normal 0.2-1.0 [facility] Comment on above: Performed By: #### 2 [id number] #### [facility] [address] [place] [address] Neutrophils (Bld) [#/Vol] 5.9 E9/L Normal 2.0-7.5 [facility] Comment on above: Performed By: #### 2 [id number] #### [facility] [address] [place] [address] Neutrophils/100 WBC (Bld) 69.9 % Normal 36.0-75.0 [facility] Comment on above: Performed By: #### 2 [id number] #### [facility] [address] [place] [address] Platelet 354.0 E9/L Normal 150.0-500. 0 [facility] Comment on above: Performed By: #### 2 [id number] #### [facility] [address] [place] [address] Platelet mean volume (Bld) [Entitic vol] 7.9 fL Normal 6.4-10.8 [facility] Comment on above: Performed By: #### 2 [id number] #### [facility] [address] [place] [address] RBC (Bld) [#/Vol] 4.0 E12/L Low 4.3-5.9 [facility] Comment on above: Performed By: #### 2 [id number] #### [facility] [address] [place] [address] WBC corrected for nucl RBC Auto (Bld) [#/Vol] 8.4 E9/L Normal 4.0-11.0 [facility] Comment on above: Performed By: #### 2 [id number] #### [facility] [address] [place] [address] CHEMISTRYOrdered By: SYSTEM SYSTEM on 11-08-2024 Albumin [...] 199 mg/[place] [address] m[IU]/mL High 1 - 3 mIU/mL [facility] Comment on above: Result Comment: 'F N ON < 1 - 3' ' 0.2 - 1 WEEK = 5 TO 50' ' 1 - 2 WEEKS = 50 - 500' ' 2 - 3 WEEKS = 100 - 5000' ' 3 - 4 WEEKS = 500 - 46387' ' 4 - 5 WEEKS = 1000 - 57492' ' 5 - 6 WEEKS = 93895 - 875909' ' 6 - 8 WEEKS = 02793 - 474919' ' 8 - 12 WEEKS = 76105 - 918863' Lipase [Catalytic activity/Vol] 29 U/L Normal 13 [...] 2024 ED Clinical Summary ED Clinical Summary [place] [id number] ED Clinical Summary Person Information Name: ROSE MARY SCHNEIDER/[facility] Age: 18 Years : 2005 Sex: Female Language: Niuean PCP: Fredi Ellington MD Marital Status: Single [...] 18:27:10 11/08/2024 18:27:10 11/08/2024 18:27:10 ADDRESS: [address] [place] [id number] [facility] DOC NOTES: MEDICAL INFORMATION: Prescriptions Given: [...] Pain During Follow up: With: Address: When: Ranjit Varma [facility], [address] [place] [address] , [place] [id number] Business (1) In 3 days 11/11/2024 With: Address: When: Fredi Rakel [address] [facility] [place] [address] Business (1) In 3 days DIAGNOSIS: Abdominal pain in ; Headache; Nausea & vomiting; Unspecified abdominal pain Normal [facility] ED Patient Summaryon 025 ED Patient Summary ED Patient Summary [place] [id number] Patient Discharge Instructions Person Information Name: ROSE MARY SCHNEIDER Age: 18 Years Arrival Date: 11/08/2024 16:05:06 Discharge Diagnosis: Abdominal pain in ; Headache; Nausea & vomiting; Unspecified abdominal pain Primary Care Physician: Fredi Ellington MD Provider Information Primary Provider: Radha Whipple DO [facility] Former:Pablo Fu PA-C The exam and treatment you received in the Emergency Department were for an urgent problem and are not intended as complete care. It is important that you follow up with a doctor, nurse practitioner, or physician???s assistant men's soccer coach for ongoing care. If your symptoms become worse or you do not improve as expected and you are unable to reach your usual health care provider, you should return to the Emergency Department. We are available 24 hours a day. ROSE MARY SCHNEIDER has been given the following list of patient education materials, prescriptions and follow-up instructions: Follow-up Instructions: With: Address: When: Ranjit ZAMUDIO [facility], [address] [facility] [place] [address] Business (1) In 3 days 11/11/2024 With: Address: When: Fredi Ellington [address] [facility], [place] [address] Business (1) In 3 days [...] opioids can be used to help relieve cpoqcxmb-ib-eufcds pain and are often prescribed following a [...] guidance from (more content not included)... Normal [facility] Extra Blueon 11-08-2024 Tube Collected Plasma Yes Invalid Interpretation Code [facility] Comment on above: Performed By: #### 1 [id number] #### [facility] [address] [place] [address] HEMATOLOGYOrdered By: SYSTEM SYSTEM on 11-08-2024 Basophils/100 [...] 11-08-2024 Albumin [Mass/Vol] 3.2 g/dL Low 3.3-5.0 [facility] Comment on above: Performed By: #### 2 [id number] #### [facility] [address] [place] [address] Albumin/Globulin (S) [Mass conc ratio] 0.9 Low 1.1-2.2 [facility] Comment on above: Performed By: #### 2 [id number] #### [facility] [address] [place] [address] ALP [Catalytic activity/Vol] 50 Int._Unit/L Normal 21-98 [facility] Comment on above: Performed By: #### 2 [id number] #### [facility] [address] [place] [address] ALT No additional P-5'-P [Catalytic activity/Vol] 7 Int._Unit/L Normal 6-46 [facility] Comment on above: Performed By: #### 2 [id number] #### [facility] [address] [place] [address] AST [Catalytic activity/Vol] 10 Int._Unit/L Normal 5-43 [facility] Comment on above: Performed By: #### 2 [id number] #### [facility] [address] [place] [address] Bilirubin [Mass/Vol] 0.2 mg/dL Normal 0.0-1.1 [facility] Comment on above: Performed By: #### 2 [id number] #### [facility] [address] [place] [address] Bilirubin.direct [Mass/Vol] 0.0 mg/dL Normal 0.0-0.4 [facility] Comment on above: Performed By: #### 2 [id number] #### [facility] [address] [place] [address] Bilirubin.indirect [Mass or moles/Vol] 0.2 mg/dL Normal 0.1-0.9 [facility] Comment on above: Performed By: #### 2 [id number] #### [facility] [address] [place] [address] Globulin (S) [Mass/Vol] 3.5 g/dL Normal 1.4-4.0 [facility] Comment on above: Performed By: #### 2 [id number] #### [facility] [address] [place] [address] Protein [Mass/Vol] 6.7 g/dL Normal 6.0-7.8 [facility] Comment on above: Performed By: #### 2 [id number] #### [facility] [address] [place] [address] Lipase Levelon 11-08-2024 Lipase [Catalytic activity/Vol] 29 U/L Normal 13-58 [facility] Comment on above: Performed By: #### 2 [id number] #### [facility] [address] [place] [address] SEROLOGYOrdered By: Susanna Daniel on 11-08-2024 HCG.beta subunit (U) [Moles/Vol] Positive (11/08/24 4:43 PM) Normal [facility] Man Sero U BetaHcg Qualon 11-08-2024 HCG.beta subunit (U) [Moles/Vol] Positive Normal [facility] Comment on above: Performed By: #### 2 [id number] #### [facility] [address] [place] [address] UA with Cult Rflxon 11-09-19 Bilirubin Ql (U) Negative Normal Negative [facility] Comment on above: Performed By: #### 4 [id number] #### [facility] [address] [place] [address] Clarity (U) Clear Normal Clear [facility] Comment on above: Performed By: #### 4 [id number] #### [facility] [address] [place] [address] Color (U) Light-Yellow Normal Yellow [facility] Comment on above: Result Comment: Micr oscopic readings are only performed on those samples that meet specific criteria set forth by [facility]. Performed By: #### 4 [id number] #### [facility] [address] [place] [address] Glucose Ql (U) Negative Normal Negative [facility] Comment on above: Performed By: #### 4 [id number] #### [facility] [address] [place] [address] Hemoglobin Auto test strip (U) [Mass/Vol] Negative Normal Negative [facility] Comment on above: Performed By: #### 4 [id number] #### [facility] [address] [place] [address] Ketones Auto test strip Ql (U) Negative Normal Negative [facility] Comment on above: Performed By: #### 4 [id number] #### [facility] [address] [place] [address] Leukocyte esterase Auto test strip Ql (U) Negative Normal Negative [facility] Comment on above: Performed By: #### 4 [id number] #### [facility] [address] [place] [address] Nitrite Auto test strip Ql (U) Negative Normal Negative [facility] Comment on above: Performed By: #### 4 [id number] #### [facility] [address] [place] [address] pH (U) 7.5 [pH] Invalid Interpretation Code 5.0-9.0 [facility] Comment on above: Performed By: #### 4 [id number] #### [facility] [address] [place] [address] Protein Ql (U) Negative Normal Negative [facility] Comment on above: Performed By: #### 4 [id number] #### [facility] [address] [place] [address] Specific gravity (U) [Rel density] 1.010 Invalid Interpretation Code 1.005-1.03 0 [facility] Comment on above: Performed By: #### 4 [id number] #### [facility] [address] [place] [address] Urobilinogen (U) [Mass/Vol] Negative Normal Negative [facility] Comment on above: Performed By: #### 4 [id number] #### [facility] [address] [place] [address] Type of Urine collection method Clean Catch Normal [facility] Comment on above: Performed By: #### 4 [id number] #### [facility] [address] [place] [address] URINALYSISOrdered By: SYSTEM SYSTEM on 11-08-2024 Bilirubin Ql (U) Negative Normal Negativemg /dL FT UA Auto SS Clarity (U) Clear (11/08/24 4:43 PM) Normal Clear [facility] UA Auto SS Color (U) Light-Yellow 1 (11/08/24 4:43 PM) Normal Yellow [facility] UA Auto SS Comment on above: Interpretive Data: M icroscopic readings are only performed on those samples that meet specific criteria set forth by [facility]. Glucose Ql (U) Negative Normal [...] /dL FT UA Auto SS pH (U) 7.5 *NA* (11/08/24 4:43 PM) Invalid Interpretation Code 5.0 - 9.0 [facility] UA Auto SS Protein Ql (U) Negative Normal Negativemg /dL FT UA Auto SS Specific gravity (U) [Rel density] 1.010 *NA* (11/08/24 4:43 PM) Invalid Interpretation Code 1.005 - 1.030 [facility] UA Auto SS Urobilinogen (U) [Mass/Vol] Negative Normal Negativemg /dL [facility] UA Auto SS URINALYSISOrdered By: Pablo Fu on 11-08-2024 UA Spec Desc Clean Catch (11/08/24 4:43 PM) Normal [facility] UA Auto SS eGFRon 11-08-2024 eGFR 132 mL/min/1.73 m2 Normal >=59 [facility] Comment on above: Performed By: #### 1 [id number] #### [facility] [address] [place] [address] RECURRENT VAGINITIS (HTRX)on 11-04-2024 ATOPOBIUM VAGINAE 22.789 [...] UA Negative Negative - 4(70) +++ mg/dL [facility] Blood, UA Negative Negative - 50 Balwinder/mcL [facility] Clarity, UA Clear [facility] Color, UA Yellow [facility] Glucose, UA Negative Negative - 2000(110) ++++ mg/dL [facility] Interpretation and review of laboratory results Abnormal [facility] Ketones, UA Positive Negative - 160(16) ++++ mg/dL [facility] Comment on above: 15mg/dL Leukocytes, UA Positive Negative - 500+++ Uzair/mcL [facility] Comment on above: small Nitrite, UA Negative Negative - Positive [facility] pH, UA 7 5 - 9 [facility] Protein, UA Negative Negative - 1999(20) ++++ mg/dL [facility] Spec Grav, UA 1.02 1 - 1.03 [facility] Urobilinogen, UA 0.2 0.2 - 12 mg/dL [facility] Urinalysis macro (dipstick) panel (U)on 09-26-2024 Bilirubin, UA Positive Negative - 4(70) +++ mg/dL [facility] Comment on above: small Blood, UA Negative Negative - 50 Balwinder/mcL [facility] Clarity, UA Clear [facility] Color, UA Hansa [facility] Glucose, UA Positive Negative - 1999(110) ++++ mg/dL [facility] Comment on above: 100 Interpretation and review of laboratory results Abnormal [facility] Ketones, UA Negative Negative - 160(16) ++++ mg/dL [facility] Leukocytes, UA Negative Negative - 500+++ Uzair/mcL [facility] Nitrite, UA Negative Negative - Positive [facility] pH, UA 5.5 5 - 9 [facility] Protein, UA Positive Negative - 1999(20) ++++ mg/dL [facility] Comment on above: 100 Spec Grav, UA 1.03 1 - 1.03 [facility] Urobilinogen, UA 0.2 0.2 - 12 mg/dL [facility] Alanine aminotransferase [En zymatic activity/volume] in Serum or PlasmaOrdered By: Jenn Sapp on 09-09-2024 ALT [Catalytic activity/Vol] Alanine aminotransferase [Enzymatic activity/volume] in Serum or Plasma 7-52 [facility] Albumin [Mass/volume] in Ser um or Plasma by Bromocresol green (BCG) dye binding methoOrdered By: Jenn Sapp on 09-09-2024 Albumin BCG dye [Mass/Vol] Albumin [Mass/volume] in Serum or Plasma by Bromocresol green (BCG) dye binding metho Low 3.5-5.7 [facility] Alkaline phosphatase [Enzyma tic activity/volume] in Serum or PlasmaOrdered By: Jenn Sapp on 09-09-2024 ALP [Catalytic activity/Vol] Alkaline phosphatase [Enzymatic activity/volume] in Serum or Plasma 34-104 [facility] Aspartate aminotransferase [ Enzymatic activity/volume] in Serum or PlasmaOrdered By: Jenn Sapp on 09-09-2024 AST [Catalytic activity/Vol] Aspartate aminotransferase [Enzymatic activity/volume] in Serum or Plasma 13-39 [facility] Basophils Auto (Bld) [#/Vol] Ordered By: Jenn Sapp on 09-09-2024 Basophils (Bld) [#/Vol] Automated basophil count 0.0-0.2 [facility] Basophils/100 WBC Auto (Bld) Ordered By: Jenn Sapp on 09-09-2024 Basophils/100 WBC (Bld) Automated basophil % . [facility] Bilirubin.total [Mass/volume ] in Serum or PlasmaOrdered By: Jenn Sapp on 09-09-2024 Bilirubin [Mass/Vol] Bilirubin.total [Mass/volume] in Serum or Plasma 0.3-1.0 [facility] Calcium [Mass/volume] in Ser um or PlasmaOrdered By: Jenn Sapp on 09-09-2024 Calcium [Mass/Vol] Calcium [Mass/volume ] in Serum or Plasma Low 8.6-10.3 [facility] Carbon dioxide, total [Moles /volume] in Serum or PlasmaOrdered By: Jenn Sapp on 09-09-2024 CO2 [Moles/Vol] Carbon dioxide, tota l [Moles/volume] in Serum or Plasma 21.0-31.0 [facility] Chloride [Moles/volume] in S wesly or PlasmaOrdered By: Jenn Sapp on 09-09-2024 Chloride [Moles/Vol] Chloride [Moles/vol ume] in Serum or Plasma 98-107 [facility] Complete Blood Count Auto Di ffon 09-09-2024 Basophils (Bld) [#/Vol] 0.1 10*3/uL Normal 0.0-0.2 [facility] Comment on above: Result Comment: PERF ORMED BY: [address] [address] PATHOLOGIST HAND FORMER ALINA VELASQUEZ M.D. Performed By: #### C BC, CMP, CK, HS TROP #### [address] Basophils/100 WBC (Bld) 0.8 % Normal . [facility] Comment on above: Performed By: #### C BC, CMP, CK, HS TROP #### [address] Eosinophils (Bld) [#/Vol] 0.2 10*3/uL Normal 0.0-0.45 [facility] Comment on above: Performed By: #### C BC, CMP, CK, HS TROP #### [address] Eosinophils/100 WBC (Bld) 3.0 % Normal . [facility] Comment on above: Performed By: #### C BC, CMP, CK, HS TROP #### [address] Erythrocyte distribution width (RBC) [Ratio] 15.8 % High 11.9-15.3 [facility] Comment on above: Performed By: #### C BC, CMP, CK, HS TROP #### [address] Hematocrit (Bld) [Volume fraction] 32.9 % Low 34.0-46.4 [facility] Comment on above: Performed By: #### C BC, CMP, CK, HS TROP #### [address] Hemoglobin (Bld) [Mass/Vol] 11.2 g/dL Low 11.8-15.4 [facility] Comment on above: Performed By: #### C BC, CMP, CK, HS TROP #### [place] [address] [place] Lymphocytes (Bld) [#/Vol] 1.6 10*3/uL Normal 1.00-4.8 [facility] Comment on above: Performed By: #### C BC, CMP, CK, HS TROP #### [place] [address] [place] Lymphocytes/100 WBC (Bld) 22.2 % Normal . [facility] Comment on above: Performed By: #### C BC, CMP, CK, HS TROP #### [address] MCH (RBC) [Entitic mass] 28.3 pg Normal 24.7-34.3 [facility] Comment on above: Performed By: #### C BC, CMP, CK, HS TROP #### [address] MCV (RBC) [Entitic vol] 83.3 fL Normal 80-100 [facility] Comment on above: Performed By: #### C BC, CMP, CK, HS TROP #### [address] Mean Corpuscular HGB Conc 33.9 g/dL Normal 32.0-35.0 [facility] Comment on above: Performed By: #### C BC, CMP, CK, HS TROP #### [address] Monocytes (Bld) [#/Vol] 0.4 10*3/uL Normal 0.0-0.8 [facility] Comment on above: Performed By: #### C BC, CMP, CK, HS TROP #### [address] Monocytes/100 WBC (Bld) 21.77 % High 0.00-20.00 [facility] Comment on above: Result Comment: For adults in ED, MDW > 20.0 may be associated with a higher risk of sepsis during the first 12 hrs of hospital admission Performed By: #### C BC, CMP, CK, HS TROP #### [address] Monocytes/100 WBC (Bld) 5.8 % Normal . [facility] Comment on above: Performed By: #### C BC, CMP, CK, HS TROP #### [address] Neutrophils (Bld) [#/Vol] 4.8 10*3/uL Normal 1.8-7.7 [facility] Comment on above: Performed By: #### C BC, CMP, CK, HS TROP #### [address] Neutrophils/100 WBC (Bld) 68.2 % Normal . [facility] Comment on above: Performed By: #### C BC, CMP, CK, HS TROP #### [address] NRBC% 0.1 /100{WBC} Normal 0-0.5 [facility] Comment on above: Performed By: #### C BC, CMP, CK, HS TROP #### [address] Platelet mean volume (Bld) [Entitic vol] 7.6 fL Normal 6.3-10.7 [facility] Comment on above: Performed By: #### C BC, CMP, CK, HS TROP #### [address] Platelets (Bld) [#/Vol] 336 10*3/uL Normal 150-450 [facility] Comment on above: Performed By: #### C BC, CMP, CK, HS TROP #### [address] RBC (Bld) [#/Vol] 3.95 10*6/uL Normal 3.60-5.00 [facility] Comment on above: Performed By: #### C BC, CMP, CK, HS TROP #### [address] WBC (Bld) [#/Vol] 7.1 10*3/uL Normal 3.8-11.6 [facility] Comment on above: Performed By: #### C BC, CMP, CK, HS TROP #### [address] Comprehensive Metabolic Pane mazin 09-09-2024 Albumin [Mass/Vol] 3.4 g/dL Low 3.5-5.7 [facility] Comment on above: Performed By: #### C BC, CMP, CK, HS TROP #### [address] Albumin/Globulin [Mass ratio] 1.1 {ratio} Normal [facility] Comment on above: Performed By: #### C BC, CMP, CK, HS TROP #### [facility] [address] ALP [Catalytic activity/Vol] 41 U/L Normal 34-104 [facility] Comment on above: Performed By: #### C BC, CMP, CK, HS TROP #### [address] ALT [Catalytic activity/Vol] 11 U/L Normal 7-52 [facility] Comment on above: Performed By: #### C BC, CMP, CK, HS TROP #### [address] Anion gap [Moles/Vol] 7.7 mmol/L Normal 6.0-15.0 [facility] Comment on above: Performed By: #### C BC, CMP, CK, HS TROP #### [address] AST [Catalytic activity/Vol] 17 U/L Normal 13-39 [facility] Comment on above: Performed By: #### C BC, CMP, CK, HS TROP #### [address] Bilirubin [Mass/Vol] 0.3 mg/dL Normal 0.3-1.0 [facility] Comment on above: Performed By: #### C BC, CMP, CK, HS TROP #### [address] Calcium [Mass/Vol] 8.5 mg/dL Low 8.6-10.3 [facility] Comment on above: Performed By: #### C BC, CMP, CK, HS TROP #### [address] Chloride [Moles/Vol] 104 mmol/L Normal 98-107 [facility] Comment on above: Performed By: #### C BC, CMP, CK, HS TROP #### [address] CO2 [Moles/Vol] 26.0 mmol/L Normal 21.0-31.0 [facility] Comment on above: Performed By: #### C BC, CMP, CK, HS TROP #### [address] Creatinine [Mass/Vol] 0.60 mg/dL Normal 0.60-1.20 [facility] Comment on above: Performed By: #### C BC, CMP, CK, HS TROP #### [place] [address] [place] Creatinine Clr Calc Pharmacy 197.99 Normal [facility] Comment on above: Result Comment: PERF ORMED BY: [place] [address] PATHOLOGIST HAND FORMER ALINA VELASQUEZ M.D. Performed By: #### C BC, CMP, CK, HS TROP #### [place] [address] [place] GFR/1.73 sq M.predicted MDRD (S/P/Bld) [Vol rate/Area] mL/min/{1.73_m2} Normal [facility] Comment on above: Performed By: #### C BC, CMP, CK, HS TROP #### [address] Globulin (S) [Mass/Vol] 3.2 g/dL Normal [facility] Comment on above: Performed By: #### C BC, CMP, CK, HS TROP #### [address] Glucose [Mass/Vol] 96 mg/dL Normal 70-100 [facility] Comment on above: Result Comment: [place] Glucose Reference Range is dependent on time and content of last meal. Glucose of more than 200 mg/dL in a nonstressed, ambulatory subject supports the diagnosis of Diabetes Mellitus. ADA recommended reference range Performed By: #### C BC, CMP, CK, HS TROP #### [address] [place] [address] [place] Potassium [Moles/Vol] 3.7 mmol/L Normal 3.5-5.1 [facility] Comment on above: Performed By: #### C BC, CMP, CK, HS TROP #### [facility] [address] [id number] [facility] Protein [Mass/Vol] 6.6 g/dL Normal 6.4-8.9 [facility] Comment on above: Performed By: #### C BC, CMP, CK, HS TROP #### [facility] [address] Sodium [Moles/Vol] 134 mmol/L Low 136-145 [facility] Comment on above: Performed By: #### C BC, CMP, CK, HS TROP #### [facility] [address] Urea nitrogen [Mass/Vol] 9 mg/dL Normal 7-25 [facility] Comment on above: Performed By: #### C BC, CMP, CK, HS TROP #### [facility] [address] [place] [address] [place] Creatine Kinaseon 09-09-2024 CK [Catalytic activity/Vol] 26 U/L Low 30-223 [facility] Comment on above: Result Comment: PERF ORMED BY: [place] [address] PATHOLOGIST HAND FORMER ALINA VELASQUEZ M.D. Performed By: #### C BC, CMP, CK, HS TROP #### [place] [id number] [place] Creatine kinase [Enzymatic a ctivity/volume] in Serum or PlasmaOrdered By: Jenn Sapp on 09-09-2024 CK [Catalytic activity/Vol] Creatine kinase [Enzymatic activity/volume] in Serum or Plasma Low 30-223 [facility] Creatinine [Mass/volume] in Serum or PlasmaOrdered By: Jenn Sapp on 09-09-2024 Creatinine [Mass/Vol] Creatinine [Mass/v olume] in Serum or Plasma 0.60-1.20 [facility] ECG 12 lead ECGon 09-09-2024 ECG 12 lead ECG [facility] [address] Electrocardiograph Report Signed Patient: Rose Mary Schneider MR#: [id number] : 2005 Acct:[id number] Age/Sex: 18 / F ADM Date: 09/09/24 Loc: ER Room: Type: [facility] ER Attending Dr: Ordering Provider: Jenn Sapp [...] was found Confirmed by JENN SAPP DO ([id number]) on 09/09/2024 4:32:05 PM Referred By: Electronically Signed By: JENN SAPP DO Transcribed By: MUS Signed By Jenn Sapp DO 09/09 1632 Normal [facility] Eosinophils Auto (Bld) [#/Vo l]Ordered By: Jenn Sapp on 09-09-2024 Eosinophils (Bld) [#/Vol] Automated eosinophil count 0.0-0.45 [facility] Eosinophils/100 WBC Auto (Bl d)Ordered By: Jenn Sapp on 09-09-2024 Eosinophils/100 WBC (Bld) Automated eosinophil % . [facility] Erythrocyte distribution wid th Auto (RBC) [Ratio]Ordered By: Jenn Sapp on 09-09-2024 Erythrocyte distribution width (RBC) [Ratio] Erythrocyte distribution width [Ratio] by Automated count High 11.9-15.3 [facility] Globulin Calc (S) [Mass/Vol] Ordered By: Jenn Sapp on 09-09-2024 Globulin (S) [Mass/Vol] Serum globulin measurement by calculation (mass/volume) [facility] Glucose [Mass/volume] in Ser um or PlasmaOrdered By: Jenn Sapp on 09-09-2024 Glucose [Mass/Vol] Glucose [Mass/volume ] in Serum or Plasma 70-100 [facility] Comment on above: ADA recommended refe rence rangeRandom Glucose Reference Range is dependent on time and content of last meal. Glucose of more than 200 mg/dL in a nonstressed, ambulatory subject supports the diagnosis of Diabetes Mellitus. Hematocrit Auto (Bld) [Volum e fraction]Ordered By: Jenn Sapp on 09-09-2024 Hematocrit (Bld) [Volume fraction] Hematocrit [Volume Fraction] of Blood by Automated count Low 34.0-46.4 [facility] Hemoglobin [Mass/volume] in BloodOrdered By: Jenn Sapp on 09-09-2024 Hemoglobin (Bld) [Mass/Vol] Hemoglobin [Mass/volume] in Blood Low 11.8-15.4 [facility] Leukocytes [#/volume] correc gamaliel for nucleated erythrocytes in Blood by Automated counOrdered By: Jenn Sapp on 09-09-2024 WBC corrected for nucl RBC Auto (Bld) [#/Vol] Leukocytes [#/volume] corrected for nucleated erythrocytes in Blood by Automated coun 3.8-11.6 [facility] Lymphocytes Auto (Bld) [#/Vo l]Ordered By: Jenn Sapp on 09-09-2024 Lymphocytes (Bld) [#/Vol] Lymphocytes [#/volume] in Blood by Automated count 1.00-4.8 [facility] Lymphocytes/100 WBC Auto (Bl d)Ordered By: Jenn Sapp on 09-09-2024 Lymphocytes/100 WBC (Bld) Lymphocytes/100 leukocytes in Blood by Automated count . [facility] MCH Auto (RBC) [Entitic mass ]Ordered By: Jenn Sapp on 09-09-2024 MCH (RBC) [Entitic mass] MCH [Entitic mass] by Automated count 24.7-34.3 [facility] MCHC Auto (RBC) [Mass/Vol]Or dered By: Jenn Sapp on 09-09-2024 MCHC (RBC) [Mass/Vol] MCHC [Mass/volume] by Automated count 32.0-35.0 [facility] MCV Auto (RBC) [Entitic vol] Ordered By: Jenn Sapp on 09-09-2024 MCV (RBC) [Entitic vol] MCV [Entitic vol ume] by Automated count 80-100 [facility] Monocyte distribution width [Entitic volume] in Blood by AutomatedOrdered By: Jenn Sapp on 09-09-2024 Monocyte distribution width Auto (Bld) [Entitic vol] Monocyte distribution width [Entitic volume] in Blood by Automated High 0.00-20.00 [facility] Comment on above: For adults in ED, MD W > 20.0 may be associated with a higher risk of sepsis during the first 12 hrs of hospital admission Monocytes Auto (Bld) [#/Vol] Ordered By: Jenn Sapp on 09-09-2024 Monocytes (Bld) [#/Vol] Automated blood monocyte count 0.0-0.8 [facility] Monocytes/100 WBC Auto (Bld) Ordered By: Jenn Sapp on 09-09-2024 Monocytes/100 WBC (Bld) Automated monocyte % . [facility] Neutrophils Auto (Bld) [#/Vo l]Ordered By: Jenn Sapp on 09-09-2024 Neutrophils (Bld) [#/Vol] Neutrophils [#/volume] in Blood by Automated count 1.8-7.7 [facility] Neutrophils/100 WBC Auto (Bl d)Ordered By: Jenn Sapp on 09-09-2024 Neutrophils/100 WBC (Bld) Automated neutrophil % . [facility] No Panel InformationOrdered By: Jenn Sapp on 09-09-2024 Estimated GFR (CKD-EPI) > 60.0 mL/Min [facility] Creatinine Clearance (Chem 197.99 [facility] Nucleated erythrocytes [Pres ence] in Blood by Automated countOrdered By: Jenn Sapp on 09-09-2024 Nucleated RBC Auto Ql (Bld) Nucleated erythrocytes [Presence] in Blood by Automated count 0-0.5 [facility] Platelet mean volume Auto (B ld) [Entitic vol]Ordered By: Jenn Sapp on 09-09-2024 Platelet mean volume (Bld) [Entitic vol] Platelet mean volume [Entitic volume] in Blood by Automated count 6.3-10.7 [facility] Platelets Auto (Bld) [#/Vol] Ordered By: Jenn Sapp on 09-09-2024 Platelets (Bld) [#/Vol] Platelets [#/vol ume] in Blood by Automated count 150-450 [facility] Potassium [Moles/volume] in Serum or PlasmaOrdered By: Jenn Sapp on 09-09-2024 Potassium [Moles/Vol] Potassium [Moles/v olume] in Serum or Plasma 3.5-5.1 [facility] Protein [Mass/volume] in Ser um or PlasmaOrdered By: Jenn Sapp on 09-09-2024 Protein [Mass/Vol] Protein [Mass/volume ] in Serum or Plasma 6.4-8.9 [facility] RBC Auto (Bld) [#/Vol]Ordere d By: Jenn Sapp on 09-09-2024 RBC (Bld) [#/Vol] Erythrocytes [#/volu me] in Blood by Automated count 3.60-5.00 [facility] Serum or plasma albumin/glob ulin mass ratioOrdered By: Jenn Sapp on 09-09-2024 Albumin/Globulin [Mass ratio] Serum or plasma albumin/globulin mass ratio [facility] Serum or plasma anion gap de terminationOrdered By: Jenn Sapp on 09-09-2024 Anion gap [Moles/Vol] Serum or plasma an ion gap determination 6.0-15.0 [facility] Sodium [Moles/volume] in Ser um or PlasmaOrdered By: Jenn Sapp on 09-09-2024 Sodium [Moles/Vol] Sodium [Moles/volume ] in Serum or Plasma Low 136-145 [facility] Troponin I High Sensitivityo n 09-09-2024 Troponin I High Sensitivity <3 Normal 0-15 [facility] Comment on above: Result Comment: The Troponin units of report have been changed to meet the Chest Pain Accreditation requirement, element EC5.M1l2. Troponin units are changed from pg/ml to ng/L. Also, the decimal is removed and results are in whole numbers. PERFORMED BY: [place] [address] PATHOLOGIST HAND FORMER ALINA VELASQUEZ M.D. Performed By: #### C BC, CMP, CK, HS TROP #### [address] Troponin I.cardiac [Mass/vol ume] in Serum or Plasma by Detection limit <= 0.01 ng/Ordered By: Jenn Sapp on 09-09-2024 Troponin I.cardiac DL <= 0.01 ng/mL [Mass/Vol] Troponin I.cardiac [Mass/volume] in Serum or Plasma by Detection limit <= 0.01 ng/ 0-15 [facility] Comment on above: The Troponin units [...] nitrogen [Mass/volume] in Serum or Plasma 02-24 [facility] WBC Auto (Bld) [#/Vol]Ordere d By: Jenn Sapp on 09-09-2024 WBC (Bld) [#/Vol] Leukocytes [#/volume ] in Blood by Automated count 3.8-11.6 [facility] BOX TESTon 08-31-2024 BOX TEST SENT OUT [employer] BOX1 [facility] BOX2 08/31/24 [facility] ( test) Ql (U)o n 08-25-2024 Interpretation and review of laboratory results Abnormal [facility] Preg Test, Ur Positive Negative [facility] US OB TRANSVAGINALon 025 US OB TRANSVAGINAL [...] 8 weeks 4 days. Dictated and transcribed 08/26/24/dpbrenda This report has been electronically signed and approved by the interpreting radiologist. Normal Not Available Comment on above: Order Comment: US OB TRANSVAGINAL No LMP recorded. Patient is . Urinalysis macro (dipstick) panel (U)on 08-25-2024 Bilirubin, UA Negative Negative - 4(70) +++ mg/dL [facility] Blood, UA Negative Negative - 50 Balwinder/mcL [facility] Clarity, UA Clear [facility] Color, UA Yellow [facility] Glucose, UA Negative Negative - 1999(110) ++++ mg/dL [facility] Interpretation and review of laboratory results Normal [facility] Ketones, UA Negative Negative - 160(16) ++++ mg/dL [facility] Leukocytes, UA Trace Negative - 500+++ Uzair/mcL [facility] Nitrite, UA Negative Negative - Positive [facility] pH, UA 7 5 - 9 [facility] Protein, UA Negative Negative - 1999(20) ++++ mg/dL [facility] Spec Grav, UA 1.025 1 - 1.03 [facility] Urobilinogen, UA 0.2 0.2 - 12 mg/dL [facility] ED Note-Physicianon 08-22-19 ED Note-Physician ED Note-Physician Basic Information Time Seen: Pablo Fu PA-C 08/21/2024 17:05 Chief Complaint per mom pt [...] to morning sickness. She has not seen BRICK PITCHER yet but is planning on doing so [...] of weeks. Is waiting to see her BRICK PITCHER. Has also had cough and congestion has [...] She will have close follow-up with her BRICK PITCHER as well as her PCP. We discussed [...] q4hr, # 20 tab(s), Refills(s) 0, Pharmacy: [facility]/pharmacy #[id number], 170, cm, 08/21/24 16:58:00 EST, Height/Length Dosing, 11.6, (more content not included)... Normal [facility] Comment on above: Result Comment: Elec tronically Signed By: Nickie MELÉNDEZ, Pablo [place]\.br\Date and Time Signed: 08/21/24 23:55 EST\.br\Electronically Co-Signed By: Hajdari M.D., Astrit H\.br\Date and Time Co-Signed: 08/22/24 07:26 EST Grp A Strp PCRon 08-22-2024 Group A Strep Negative Normal Negative [facility] Comment on above: Order Comment: Order Added on by Discern Rule. Result Comment: Test ing performed using DNA amplification. Performed By: #### 1 [id number] #### [facility] [address] [place] [address] Grp A Strp Intrl Ctrl Pass Normal [facility] Comment on above: Order Comment: Order Added on by Discern Rule. Performed By: #### 1 [id number] #### [facility] [address] [place] [address] BMPon 08-21-2024 Anion gap [Moles/Vol] 12 mmol/L Normal 6-16 [facility] Comment on above: Performed By: #### 2 [id number] #### [facility] [address] [place] [address] Calcium [Mass/Vol] 9.4 mg/dL Normal 8.9-11.1 [facility] Comment on above: Performed By: #### 2 [id number] #### [facility] [address] [place] [address] Chloride [Moles/Vol] 100 mmol/L Low 101-111 [facility] Comment on above: Performed By: #### 2 [id number] #### [facility] [address] [place] [address] CO2 [Moles/Vol] 25 mmol/L Normal 21-31 [facility] Comment on above: Performed By: #### 2 [id number] #### [facility] [address] [place] [address] Creatinine [Mass/Vol] 0.7 mg/dL Normal 0.5-1.3 [facility] Comment on above: Performed By: #### 2 [id number] #### [facility] [address] [place] [address] Glucose [Mass/Vol] 79 mg/dL Normal 55-199 [facility] Comment on above: Performed By: #### 2 [id number] #### [facility] [address] [place] [address] Potassium [Moles/Vol] 3.7 mmol/L Normal 3.5-5.3 [facility] Comment on above: Performed By: #### 2 [id number] #### [facility] [address] [place] [address] Sodium [Moles/Vol] 133 mmol/L Low 135-145 [facility] Comment on above: Performed By: #### 2 [id number] #### [facility] [address] [place] [address] Urea nitrogen [Mass/Vol] 10 mg/dL Normal 5-21 [facility] Comment on above: Performed By: #### 2 [id number] #### [facility] [address] [place] [address] Urea nitrogen/Creatinine [Mass ratio] 14 No Units Normal 10-20 [facility] Comment on above: Performed By: #### 2 [id number] #### [facility] [address] [place] [address] CBC w/ Auto Diffon 5 Basophils/100 WBC (Bld) 0.3 % Normal 0.0-2.0 [facility] Comment on above: Performed By: #### 2 [id number] #### [facility] [address] [place] [address] Basophils/Leukocytes Auto (Bld) [Pure # fraction] 0.0 E9/L Normal 0.0-0.2 [facility] Comment on above: Performed By: #### 2 [id number] #### [facility] [address] [place] [address] Eosinophils (Bld) [#/Vol] 0.2 E9/L Normal 0.0-0.5 [facility] Comment on above: Performed By: #### 2 [id number] #### [facility] [address] [place] [address] Eosinophils/100 WBC (Bld) 2.6 % Normal 0.0-8.0 [facility] Comment on above: Performed By: #### 2 [id number] #### [facility] [address] [place] [address] Erythrocyte distribution width (RBC) [Ratio] 15.7 % High 10.9-14.2 [facility] Comment on above: Performed By: #### 2 [id number] #### [facility] [address] [place] [address] Hematocrit (Bld) [Volume fraction] 38.3 % Normal 34.0-46.0 [facility] Comment on above: Performed By: #### 2 [id number] #### [facility] [address] [place] [address] Hemoglobin (Bld) [Mass/Vol] 13.0 g/dL Normal 12.0-16.0 [facility] Comment on above: Performed By: #### 2 885125 #### [facility] [address] [place] [address] Lymphocytes (Bld) [#/Vol] 1.8 E9/L Normal 1.0-4.0 [facility] Comment on above: Performed By: #### 2 776235 #### [facility] [address] [place] [address] Lymphocytes/100 WBC (Bld) 27.3 % Normal 14.0-50.0 [facility] Comment on above: Performed By: #### 2 898690 #### [facility] [address] [place] [address] MCH (RBC) [Entitic mass] 27.7 pg Normal 27.0-34.0 [facility] Comment on above: Performed By: #### 2 [id number] #### [facility] [address] [place] [address] MCHC (RBC) [Mass/Vol] 33.9 g/dL Normal 31.4-36.0 [facility] Comment on above: Performed By: #### 2 489461 #### [facility] [address] [place] [address] MCV (RBC) [Entitic vol] 81.8 fL Normal 80.0-100.0 [facility] Comment on above: Performed By: #### 2 [id number] #### [facility] [address] [place] [address] Monocytes (Bld) [#/Vol] 0.5 E9/L Normal 0.2-1.0 [facility] Comment on above: Performed By: #### 2 [id number] #### [facility] [address] [place] [address] Neutrophils (Bld) [#/Vol] 4.2 E9/L Normal 2.0-7.5 [facility] Comment on above: Performed By: #### 2 343035 #### [facility] [address] [place] [address] Neutrophils/100 WBC (Bld) 61.9 % Normal 36.0-75.0 [facility] Comment on above: Performed By: #### 2 980259 #### [facility] [address] [place] [address] Platelet 446.0 E9/L Normal 150.0-500. 0 [facility] Comment on above: Performed By: #### 2 139193 #### [facility] [address] [place] [address] Platelet mean volume (Bld) [Entitic vol] 7.4 fL Normal 6.4-10.8 [facility] Comment on above: Performed By: #### 2 [id number] #### [facility] [address] [place] [address] RBC (Bld) [#/Vol] 4.7 E12/L Normal 4.3-5.9 [facility] Comment on above: Performed By: #### 2 123033 #### [facility] [address] [place] [address] WBC corrected for nucl RBC Auto (Bld) [#/Vol] 6.8 E9/L Normal 4.0-11.0 [facility] Comment on above: Performed By: #### 2 [id number] #### [facility] [address] [place] [address] CHEMISTRYOrdered By: SYSTEM SYSTEM on 08-21-2024 Albumin [...] 2024 ED Clinical Summary ED Clinical Summary [place] [id number] ED Clinical Summary Person Information Name: [facility] Age: 18 Years : 2005 Sex: Female Language: Niuean PCP: Fredi Ellington MD Marital Status: Single [...] 08/21/2024 20:38:01 08/21/2024 20:38:01 08/21/2024 20:38:01 ADDRESS: [address] [facility] [id number] PHYS DOC NOTES: MEDICAL INFORMATION: Prescriptions Given: New Medications [facility]/pharmacy #[id number], [address] [place], [place] [id number], [phone] promethazine (promethazine 12.5 mg oral tablet) 1 [...] Sickness Follow up: With: Address: When: Cheri Joiner [address] [place] [address] [place], [facility] [address], [place] [address] Business (1) In 3 days 08/24/2024 With: Address: When: Fredi Ellington [address] [place] [address] Business (1) In 3 days 08/24/2024 DIAGNOSIS: Nausea and vomiting in ; Viral URI with cough Normal [facility] ED Patient Summaryon 025 ED Patient Summary ED Patient Summary [address] [address] Patient Discharge Instructions Person Information Name: ROSE MARY SCHNEIDER Age: 18 Years Arrival Date: 08/21/2024 16:53:26 Discharge Diagnosis: Nausea and vomiting in ; Viral URI with cough Primary Care Physician: Fredi Ellington MD Provider Information Primary Provider: Migue Farrell M.D. Advanced Hand Former:Pablo Fu PA-C The exam and treatment you received in the Emergency Department were for an urgent problem and are not intended as complete care. It is important that you follow up with a doctor, nurse practitioner, or physician???s assistant men's soccer coach for ongoing care. If your symptoms become [...] Follow-up Instructions: With: Address: When: Cheri Joiner [address] [place] [id number] Business (1) In 3 days 08/24/2024 With: Address: When: Fredi Rakel [address] [place] [address] Business (1) In 3 days 08/24/2024 In the event that this physician does not participate in your insurance network, please consult with your insurance company to find a nearby participating provider. Patient Education Materials: Upper Respiratory Infection, Adult; Morning Sickness A MESSAGE TO ALL PATIENTS REGARDING OPIOIDS PRESCRIPTION OPIOIDS: WHAT YOU NEED TO KNOW Prescription opioids can be used to help relieve rblhjtlg-ye-obpgaw pain and are often prescribed following a [...] Administration (www.f (more content not included)... Normal [facility] Extra Blueon 08-21-2024 Tube Collected Plasma Yes Invalid Interpretation Code [facility] Comment on above: Performed By: #### 1 [id number] #### [facility] [address] [place] [address] HEMATOLOGYOrdered By: SYSTEM SYSTEM on 08-21-2024 Basophils/100 [...] 08-21-2024 Albumin [Mass/Vol] 4.1 g/dL Normal 3.3-5.0 [facility] Comment on above: Performed By: #### 2 [id number] #### [facility] [address] [place] [address] Albumin/Globulin (S) [Mass conc ratio] 1.1 Normal 1.1-2.2 [facility] Comment on above: Performed By: #### 2 [id number] #### [facility] [address] [place] [address] ALP [Catalytic activity/Vol] 54 Int._Unit/L Normal 21-98 [facility] Comment on above: Performed By: #### 2 [id number] #### [facility] [address] [place] [address] ALT No additional P-5'-P [Catalytic activity/Vol] 32 Int._Unit/L Normal 6-46 [facility] Comment on above: Performed By: #### 2 [id number] #### [facility] [address] [place] [address] AST [Catalytic activity/Vol] 27 Int._Unit/L Normal 5-43 [facility] Comment on above: Performed By: #### 2 [id number] #### [facility] [address] [place] [address] Bilirubin [Mass/Vol] 0.7 mg/dL Normal 0.0-1.1 [facility] Comment on above: Performed By: #### 2 [id number] #### [facility] [address] [place] [address] Bilirubin.direct [Mass/Vol] 0.0 mg/dL Normal 0.0-0.4 [facility] Comment on above: Performed By: #### 2 [id number] #### [facility] [address] [place] [address] Bilirubin.indirect [Mass or moles/Vol] 0.7 mg/dL Normal 0.1-0.9 [facility] Comment on above: Performed By: #### 2 120445 #### [facility] [address] [place] [address] Globulin (S) [Mass/Vol] 3.8 g/dL Normal 1.4-4.0 [facility] Comment on above: Performed By: #### 2 459141 #### [facility] [address] [place] [address] Protein [Mass/Vol] 7.9 g/dL High 6.0-7.8 [facility] Comment on above: Performed By: #### 2 [id number] #### [facility] [address] [place] [address] Influenza A&B Agon 5 Influenzae A Ag Negative Normal Negative [facility] Comment on above: Performed By: #### 1 [id number] #### [facility] [address] [place] [address] Influenzae B Ag Negative Normal Negative [facility] Comment on above: Result Comment: Test sensitivity and specificity vary for age group, specimen type, antigen types, and prevalence of disease. Test results must be evaluated in conjunction with other clinical data available to the physician. Individuals who received nasally administered Influenza A vaccine may have positive test results up to 3 days after vaccination. Performed By: #### 1 [id number] #### [facility] [address] [place] [address] Lipase Levelon 08-21-2024 Lipase [Catalytic activity/Vol] 20 U/L Normal 13-58 [facility] Comment on above: Performed By: #### 2 [id number] #### [facility] [address] [place] [address] MICRO OTHER TESTSOrdered By: Rafiq Norris on 08-21-2024 Influenzae A Ag Negative (08/21/24 5:50 PM) Normal Negative [facility] Man Sero Influenzae B Ag Negative 2 (08/21/24 5:50 PM) Normal Negative [facility] Sero Comment on above: Interpretive Data: [...] NEG Ctl Pass (08/21/24 5:50 PM) Normal FT Man Sero Rapid COV Int POS Ctl Pass (08/21/24 5:50 PM) Normal [facility] Man Sero S. pyogenes Ag IA.rapid Ql (Throat) Negative (08/21/24 5:50 PM) Normal Negative [facility] Man Sero SARS-CoV+SARS-CoV-2 (COVID-19) Ag IA.rapid Ql (Resp) Not Detected 3 (08/21/24 5:50 PM) Normal Not Detected [facility] Comment on above: Interpretive Data: T he Cibando Veritor System for Rapid Detection of SARS-CoV-2 [...] For in vitro diagnostic use. In the [facility], only for use under an Emergency [...] other viruses or pathogens; and, in the [facility], this test is only authorized for the duration of the declaration that circumstances exist justifying the authorization of emergency use of in vitro diagnostics for detection and/or diagnosis of the virus that causes COVID-19 under Section 564(b)(1) of the Act, 21 U.S.C. 360bbb-3(b)(1), unless the authorization is terminated or revoked sooner. Rapid COVID Antigen ([facility])on 08-21-2024 Rapid COV Int NEG Ctl Pass Normal Fis [facility] Comment on above: Performed By: #### 2 [id number] #### [facility] [address] [place] [address] Rapid COV Int POS Ctl Pass Normal [facility] Comment on above: Performed By: #### 2 [id number] #### [facility] [address] [place] [address] SARS-CoV+SARS-CoV-2 (COVID-19) Ag IA.rapid Ql (Resp) Not detected Normal Not Detected [facility] Comment on above: Result Comment: The Cibando Veritor??? System for Rapid Detection of SARS-CoV-2 [...] or revoked sooner. Performed By: #### 2 [id number] #### [facility] [address] [place] [address] Rapid Strep w/rfxon 08-21-19 25 S. pyogenes Ag IA.rapid Ql (Throat) Negative Normal Negative [facility] Comment on above: Performed By: #### 2 [id number] #### [facility] [address] [place] [address] UA with Cult Rflxon 08-21-19 25 Bilirubin Ql (U) Negative Normal Negative [facility] Comment on above: Performed By: #### 4 [id number] #### [facility] [address] [place] [address] Clarity (U) Clear Normal Clear [facility] Comment on above: Performed By: #### 4 [id number] #### [facility] [address] [place] [address] Color (U) Yellow Normal Yellow [facility] Comment on above: Result Comment: Micr oscopic readings are only performed on those samples that meet specific criteria set forth by [facility]. Performed By: #### 4 [id number] #### [facility] [address] [place] [address] Glucose Ql (U) Negative Normal Negative [facility] Comment on above: Performed By: #### 4 [id number] #### [facility] [address] [place] [address] Hemoglobin Auto test strip (U) [Mass/Vol] Negative Normal Negative [facility] Comment on above: Performed By: #### 4 [id number] #### [facility] [address] [place] [address] Ketones Auto test strip Ql (U) 1+ mg/dL Abnormal Negative [facility] Comment on above: Performed By: #### 4 [id number] #### [facility] [address] [place] [address] Leukocyte esterase Auto test strip Ql (U) Negative Normal Negative [facility] Comment on above: Performed By: #### 4 [id number] #### [facility] [address] [place] [address] Nitrite Auto test strip Ql (U) Negative Normal Negative [facility] Comment on above: Performed By: #### 4 [id number] #### [facility] [address] [place] [address] pH (U) 6.0 [pH] Invalid Interpretation Code 5.0-9.0 [facility] Comment on above: Performed By: #### 4 [id number] #### [facility] [address] [place] [address] Protein Ql (U) Negative Normal Negative [facility] Comment on above: Performed By: #### 4 [id number] #### [facility] [address] [place] [address] Specific gravity (U) [Rel density] 1.013 Invalid Interpretation Code 1.005-1.03 0 [facility] Comment on above: Performed By: #### 4 [id number] #### [facility] [address] [place] [address] Urobilinogen (U) [Mass/Vol] Negative Normal Negative [facility] Comment on above: Performed By: #### 4 [id number] #### [facility] [address] [place] [address] Type of Urine collection method Clean Catch Normal [facility] Comment on above: Performed By: #### 4 [id number] #### [facility] [address] [place] [address] URINALYSISOrdered By: SYSTEM SYSTEM on 08-21-2024 Bilirubin Ql (U) Negative Normal Negativemg /dL [facility] UA Auto SS Clarity (U) Clear (08/21/24 6:54 PM) Normal Clear FT UA Auto SS Color (U) Yellow 1 (08/21/24 6:54 PM) Normal Yellow FT UA Auto SS Comment on above: Interpretive Data: M icroscopic readings are only performed on those samples that meet specific criteria set forth by [facility]. Glucose Ql (U) Negative Normal [...] PM) Invalid Interpretation Code 5.0 - 9.0 [facility] UA Auto SS Protein Ql (U) Negative Normal Negativemg /dL [facility] UA Auto SS Specific gravity (U) [Rel density] 1.013 *NA* (08/21/24 6:54 PM) Invalid Interpretation Code 1.005 - 1.030 [facility] UA Auto SS Urobilinogen (U) [Mass/Vol] Negative Normal Negativemg /dL [facility] UA Auto SS URINALYSISOrdered By: Pablo Fu on 08-21-2024 UA Spec Desc Clean Catch (08/21/24 6:54 PM) Normal [facility] UA Auto SS eGFRon 08-21-2024 eGFR 127 mL/min/1.73 m2 Normal >=59 [facility] Comment on above: Performed By: #### 1 [id number] #### [facility] [address] [place] [address] BMPon 06-27-2024 Anion gap [Moles/Vol] 9 mmol/L Normal 6-16 [facility] Comment on above: Performed By: #### 2 [id number] #### [facility] [address] [place] [address] Calcium [Mass/Vol] 8.6 mg/dL Low 8.9-11.1 [facility] Comment on above: Performed By: #### 2 [id number] #### [facility] [address] [place] [address] Chloride [Moles/Vol] 106 mmol/L Normal 101-111 [facility] Comment on above: Performed By: #### 2 [id number] #### [facility] [address] [place] [address] CO2 [Moles/Vol] 29 mmol/L Normal 21-31 [facility] Comment on above: Performed By: #### 2 [id number] #### [facility] [address] [place] [address] Creatinine [Mass/Vol] 0.8 mg/dL Normal 0.5-1.3 [facility] Comment on above: Performed By: #### 2 [id number] #### [facility] [address] [place] [address] Glucose [Mass/Vol] 91 mg/dL Normal 55-199 [facility] Comment on above: Performed By: #### 2 [id number] #### [facility] [address] [place] [address] Potassium [Moles/Vol] 3.2 mmol/L Low 3.5-5.3 [facility] Comment on above: Performed By: #### 2 [id number] #### [facility] [address] [place] [address] Sodium [Moles/Vol] 141 mmol/L Normal 135-145 [facility] Comment on above: Performed By: #### 2 [id number] #### [facility] [address] [place] [address] Urea nitrogen [Mass/Vol] 9 mg/dL Normal 5-21 [facility] Comment on above: Performed By: #### 2 [id number] #### [facility] [address] [place] [address] Urea nitrogen/Creatinine [Mass ratio] 11 No Units Normal 10-20 [facility] Comment on above: Performed By: #### 2 [id number] #### [facility] [address] [place] [address] CBC w/ Auto Diffon 4 Basophils/100 WBC (Bld) 0.4 % Normal 0.0-2.0 F [facility] Comment on above: Performed By: #### 2 [id number] #### [facility] [address] [place] [address] Basophils/Leukocytes Auto (Bld) [Pure # fraction] 0.0 E9/L Normal 0.0-0.2 [facility] Comment on above: Performed By: #### 2 [id number] #### [facility] [address] [place] [address] Eosinophils (Bld) [#/Vol] 0.2 E9/L Normal 0.0-0.5 [facility] Comment on above: Performed By: #### 2 [id number] #### [facility] [address] [place] [address] Eosinophils/100 WBC (Bld) 3.6 % Normal 0.0-8.0 [facility] Comment on above: Performed By: #### 2 [id number] #### [facility] [address] [place] [address] Erythrocyte distribution width (RBC) [Ratio] 14.7 % High 10.9-14.2 [facility] Comment on above: Performed By: #### 2 [id number] #### [facility] [address] [place] [address] Hematocrit (Bld) [Volume fraction] 36.6 % Normal 34.0-46.0 [facility] Comment on above: Performed By: #### 2 [id number] #### [facility] [address] [place] [address] Hemoglobin (Bld) [Mass/Vol] 12.4 g/dL Normal 12.0-16.0 [facility] Comment on above: Performed By: #### 2 [id number] #### [facility] [address] [place] [address] Lymphocytes (Bld) [#/Vol] 2.3 E9/L Normal 1.0-4.0 [facility] Comment on above: Performed By: #### 2 [id number] #### [facility] [address] [place] [address] Lymphocytes/100 WBC (Bld) 39.0 % Normal 14.0-50.0 [facility] Comment on above: Performed By: #### 2 [id number] #### [facility] [address] [place] [address] MCH (RBC) [Entitic mass] 28.0 pg Normal 27.0-34.0 [facility] Comment on above: Performed By: #### 2 [id number] #### [facility] [address] [place] [address] MCHC (RBC) [Mass/Vol] 34.0 g/dL Normal 31.4-36.0 [facility] Comment on above: Performed By: #### 2 [id number] #### [facility] [address] [place] [address] MCV (RBC) [Entitic vol] 82.4 fL Normal 80.0-100.0 F [facility] Comment on above: Performed By: #### 2 [id number] #### [facility] [address] [place] [address] Monocytes (Bld) [#/Vol] 0.5 E9/L Normal 0.2-1.0 [facility] Comment on above: Performed By: #### 2 [id number] #### [facility] [address] [place] [address] Neutrophils (Bld) [#/Vol] 2.8 E9/L Normal 2.0-7.5 [facility] Comment on above: Performed By: #### 2 [id number] #### [facility] [address] [place] [address] Neutrophils/100 WBC (Bld) 48.2 % Normal 36.0-75.0 [facility] Comment on above: Performed By: #### 2 [id number] #### [facility] [address] [place] [address] Platelet mean volume (Bld) [Entitic vol] 7.5 fL Normal 6.4-10.8 [facility] Comment on above: Performed By: #### 2 [id number] #### [facility] [address] [place] [address] Platelets (Bld) [#/Vol] 430.0 E9/L Normal 150. 0-500. 0 [facility] Comment on above: Performed By: #### 2 [id number] #### [facility] [address] [place] [address] RBC (Bld) [#/Vol] 4.5 E12/L Normal 4.3-5.9 [facility] Comment on above: Performed By: #### 2 [id number] #### [facility] [address] [place] [address] WBC corrected for nucl RBC Auto (Bld) [#/Vol] 5.8 E9/L Normal 4.0-11.0 [facility] Comment on above: Performed By: #### 2 [id number] #### [facility] [address] [place] [address] CHEMISTRYOrdered By: SYSTEM SYSTEM on 06-27-2024 Anion [...] 32.9 s Normal 25.1 - 36.5 second(s) [facility] Auto Coag Comment on above: Interpretive Data: [...] same coagulation reagent and instrumentation as [facility]. Currently there are no coagulation studies available worldwide for children to 14 days, and no normal ranges. Heparin therapeutic range (represented by Anti-Factor Xa activity of 0.2 - 0.4 U/mL) corresponds to PTT of 56.6 - 109.0 sec. INR Coag (PPP) [Relative time] 0.99 {INR} Invalid Interpretation Code [facility] Auto Coag Comment on above: Interpretive Data: I NR results are specifically intended to assess patients stabilized on long-term Anticoagulation therapy suggested INR s Less Intensive Anticoagulation 2.0 3.0 Conventional Range 3.0 4.5 PT Coag (PPP) [Time] 11.1 s Normal 9.4 - 1 2.5 second(s) [facility] Auto Coag Comment on above: Interpretive Data: [...] obtained from a study by arcadio Ward alLaurita prepared from 1437 samples obtained at 7 different centers using the same coagulation reagent and instrumentation as [facility]. Currently there are no coagulation studies available worldwide for children to 14 days, and no normal ranges. CT Head or Brain w/o Contras ton 06-27-2024 CT Head or Brain w/o Contrast [...] M.D. Transcribed by: GARTH Technologist: CARLOS Iqbal [facility] ED Clinical Summaryon 2023 ED Clinical Summary ED Clinical Summary [place] [address] ED Clinical Summary Person Information Name: ROSE MARY SCHNEIDER/[facility] Age: 18 Years : 2005 Sex: Female Language: Niuean PCP: Fredi Ellington MD Marital Status: Single [...] 06/27/2024 00:49:28 06/27/2024 00:49:28 06/27/2024 00:49:28 ADDRESS: [address] [place] [id number] PHYS DOC NOTES: MEDICAL INFORMATION: Prescriptions Given: [...] Follow up: With: Address: When: [facility], [address] [place] [address] [place] [address] [employer] (1) In 3 days 06/30/2024 With: Address: When: Fredi Ellington [address] [facility] [address], [place] [address] Business (1) In 3 days DIAGNOSIS: Hypokalemia; Nonepileptic episode Normal [facility] ED Note-Physicianon 06-27-20 ED Note-Physician ED [...] and Complexity of Problems Differential Diagnosis: [] [facility] Data External documents reviewed: N/A My EKG [...] Information [facility] In 3 days 06/30/[address] [address]- Business (1) Additional Instructions: Fredi Ellington In 3 days [address] [place] [address]- Business (1) Additional Instructions: Patient Education Hypokalemia [...] Tab-Dis, 4 mg= 1 tab(s), Oral, q8hr, IA (more content not included)... Normal [facility] Comment on above: Result Comment: Elec tronically Signed By: Han Bolaños DO\.br\Date and Time Signed: 06/27/24 00:42 EST ED Patient Summaryon 024 ED Patient Summary ED Patient Summary [address] [address] Patient Discharge Instructions Person Information Name: ROSE MARY SCHNEIDER Age: 18 Years Arrival Date: 06/26/2024 23:10:41 Discharge Diagnosis: Hypokalemia; Nonepileptic episode Primary Care Physician: Fredi Ellington MD Provider Information Primary Provider: Han Bolaños DO Advanced Hand Former:None The exam and treatment you received in the Emergency Department were for an urgent problem and are not intended as complete care. It is important that you follow up with a doctor, nurse practitioner, or physician???s assistant men's soccer coach for ongoing care. If your symptoms become [...] Follow-up Instructions: With: Address: When: [facility], [address] [address] Business (1) In 3 days 06/30/2024 With: Address: When: Fredi Ellington [address] [facility] [place] [address] Business (1) In 3 days In the event that this physician does not participate in your insurance network, please consult with your insurance company to find a nearby participating provider. Patient Education Materials: Hypokalemia; Non-Epileptic Seizures, Adult A MESSAGE TO ALL PATIENTS REGARDING OPIOIDS PRESCRIPTION OPIOIDS: WHAT YOU NEED TO KNOW Prescription opioids can be used to help relieve mufgqanh-rt-mvquyr pain and are often prescribed following a [...] Visit www.cdc.gov/drug (more content not included)... Normal [facility] HEMATOLOGYOrdered By: SYSTEM SYSTEM on 06-27-2024 [...] Coag (PPP) [Time] 32.9 second(s) Normal 25.1-36.5 [facility] Comment on above: Result Comment: Para [...] same coagulation reagent and instrumentation as [facility]. Currently there are no coagulation studies available worldwide for children to 14 days, and no normal ranges. Heparin therapeutic range (represented by Anti-Factor Xa activity of 0.2 - 0.4 U/mL) corresponds to PTT of 56.6 - 109.0 sec. Performed By: #### 1 [id number] #### [facility] [address] [place] [address] INR Coag (PPP) [Relative time] 0.99 {INR} Invalid Interpretation Code [facility] Comment on above: Result Comment: INR results are specifically intended to assess patients stabilized on long-term Anticoagulation therapy suggested INR???s ???Less Intensive Anticoagulation??? 2.0 ??? 3.0 Conventional Range 3.0 ??? 4.5 Performed By: #### 1 [id number] #### [facility] [address] [place] [address] PT Coag (PPP) [Time] 11.1 second(s) Normal 9.4-12.5 [facility] Comment on above: Result Comment: 15 [...] same coagulation reagent and instrumentation as [facility]. Currently there are no coagulation studies available worldwide for children to 14 days, and no normal ranges. Performed By: #### 1 [id number] #### [facility] [address] [place] [address] Troponin 0 Hr.on 06-27-2024 Troponin HS <2.30 Low 10.10-27.1 0 [facility] Comment on above: Result Comment: The 95% CI (Confidence Interval) PPV (Positive Predictive Value) for myocardial infarction in females is 38 pg/mL, in males 51 pg/mL. The results should be used in conjunction with clinical conditions of myocardial infarction. (Access High Sensitivity Troponin I Instructions For Use, Stephy Hopkins, March 2018) Performed By: #### 1 [id number] #### [facility] [address] [place] [address] U Drug Screenon 06-27-2024 Amphetamines Screen method >1000 ng/mL Ql (U) Negative Normal NEGATIVE [facility] Comment on above: Result Comment: Nega tive Cutoff: <1000 ng/mL Performed By: #### 2 [id number] #### [facility] [address] [place] [address] Barbiturates Screen Ql (U) Negative Normal NEGATIVE [facility] Comment on above: Result Comment: Nega tive Cutoff: <200 ng/mL Performed By: #### 2 [id number] #### [facility] [address] [place] [address] Benzodiazepines Ql (U) Negative Normal NEGATIVE Fi [facility] Comment on above: Result Comment: Nega tive Cutoff: <200 ng/mL Performed By: #### 2 [id number] #### [facility] [address] [place] [address] Cannabinoids Screen Ql (U) Positive Abnormal NEGATIVE [facility] Comment on above: Result Comment: No C onfirmation Requested by Physician Result verified by repeat analysis, Unconfirmed by alternate method Critical Result called to Natali Pool by [email or web address] on 06/27/24 at 0012 Negative Cutoff: <50 ng/mL Performed By: #### 2 [id number] #### [facility] [address] [place] [address] Cocaine Ql (U) Negative Normal NEGATIVE [facility] Comment on above: Result Comment: Nega tive Cutoff: <300 ng/mL Performed By: #### 2 [id number] #### [facility] [address] [place] [address] Opiates Screen Ql (U) Negative Normal NEGATIVE Fis [facility] Comment on above: Result Comment: Nega tive Cutoff: <300 ng/mL Performed By: #### 2 [id number] #### [facility] [address] [place] [address] Phencyclidine Screen method >25 ng/mL Ql (U) Negative Normal NEGATIVE [facility] Comment on above: Result Comment: Nega tive Cutoff: <25 ng/mL These drug screen results are to be used for medical (i.e., treatment) purposes only. Unconfirmed drug screening results must not be used for non-medical purposes (e.g., employment testing, legal testing). Performed By: #### 2 [id number] #### [facility] [address] [place] [address] U Fentanyl Negative Normal NEGATIVE [facility] Comment on above: Result Comment: Nega tive Cutoff: <5 ng/mL These drug screen results are to be used for medical (i.e., treatment) purposes only. Unconfirmed drug screening results must not be used for non-medical purposes (e.g., employment testing, legal testing). Performed By: #### 2 [id number] #### [facility] [address] [place] [address] XR Chest Single Viewon 06-27 XR Chest [...] Orlando Harris M.D. Transcribed by: GARTH Technologist: SKS Technical Comments Radiation Dose: Ka,r in mGy = na DAP = na Normal [facility] eGFRon 06-27-2024 eGFR 108 mL/min/1.73 m2 Normal >=59 [facility] Comment on above: Performed By: #### 1 [id number] #### [facility] [address] [place] [address] CHEMISTRYOrdered By: SYSTEM SYSTEM on 06-26-2024 Amphetamines [...] Critical Result called to Natali Pool by [facility] on 06/27/24 at 0012 Interpretive Data: N [...] 06-26-2024 HCG.beta subunit (U) [Moles/Vol] Negative Normal [facility] Man Sero U BetaHcg Qualon 06-26-2024 HCG.beta subunit (U) [Moles/Vol] Negative Normal [facility] Comment on above: Performed By: #### 2 [id number] #### [facility] [address] [place] [address] UA with Cult Rflxon 06-26-20 Bilirubin Ql (U) Negative Normal Negative [facility] Comment on above: Performed By: #### 4 [id number] #### [facility] [address] [place] [address] Clarity (U) Clear Normal Clear [facility] Comment on above: Performed By: #### 4 [id number] #### [facility] [address] [place] [address] Color (U) Yellow Normal Yellow [facility] Comment on above: Result Comment: Micr oscopic readings are only performed on those samples that meet specific criteria set forth by [facility]. Performed By: #### 4 [id number] #### [facility] [address] [place] [address] Crystals.amorphous Computer assisted Ql (U) Present Abnormal [facility] Comment on above: Performed By: #### 4 [id number] #### [facility] [address] [place] [address] Epithelial cells.squamous Auto (Urine sed) [#/Area] 5-8 Invalid Interpretation Code [facility] Comment on above: Performed By: #### 4 [id number] #### [facility] [address] [place] [address] Glucose Ql (U) Negative Normal Negative [facility] Comment on above: Performed By: #### 4 [id number] #### [facility] [address] [place] [address] Hemoglobin Auto test strip (U) [Mass/Vol] Trace Abnormal Negative [facility] Comment on above: Performed By: #### 4 [id number] #### [facility] [address] [place] [address] Ketones Auto test strip Ql (U) Negative Normal Negative [facility] Comment on above: Performed By: #### 4 [id number] #### [facility] [address] [place] [address] Leukocyte esterase Auto test strip Ql (U) Negative Normal Negative [facility] Comment on above: Performed By: #### 4 [id number] #### [facility] [address] [place] [address] Mucus Auto Ql (U) 2+ CD:[id number] Abnormal Negative [facility] Comment on above: Performed By: #### 4 [id number] #### [facility] [address] [place] [address] Nitrite Auto test strip Ql (U) Negative Normal Negative [facility] Comment on above: Performed By: #### 4 [id number] #### [facility] [address] [place] [address] pH (U) 6.0 [pH] Invalid Interpretation Code 5.0-9.0 [facility] Comment on above: Performed By: #### 4 [id number] #### [facility] [address] [place] [address] Protein Ql (U) 1+ mg/dL Abnormal Negative [facility] Comment on above: Performed By: #### 4 [id number] #### [facility] [address] [place] [address] RBC Ql (U) 0-3 Normal 0-3 [facility] Comment on above: Performed By: #### 4 [id number] #### [facility] [address] [place] [address] Specific gravity (U) [Rel density] 1.031 Invalid Interpretation Code 1.005-1.03 0 [facility] Comment on above: Performed By: #### 4 [id number] #### [facility] [address] [place] [id number] Urobilinogen (U) [Mass/Vol] 2 mg/dL Abnormal Negative [facility] Comment on above: Performed By: #### 4 [id number] #### [facility] [address] [place] [address] WBC Auto (Urine sed) [#/Area] 0-5 Normal 0-5 [facility] Comment on above: Performed By: #### 4 [id number] #### [facility] [address] [place] [address] Type of Urine collection method Clean Catch Normal [facility] Comment on above: Performed By: #### 4 [id number] #### [facility] [address] [place] [address] URINALYSISOrdered By: SYSTEM SYSTEM on 06-26-2024 Bilirubin Ql (U) Negative Normal Negativemg /dL [facility] UA Auto SS Clarity (U) Clear (06/26/24 11:34 PM) Normal Clear [facility] UA Auto SS Color (U) Yellow 3 (06/26/24 11:34 PM) Normal Yellow [facility]A Auto SS Comment on above: Interpretive Data: M icroscopic readings are only performed on those samples that meet specific criteria set forth by [facility]. Crystals.amorphous Computer assisted Ql (U) Present graded/HPF Invalid Interpretation Code [facility] UA Auto SS Epithelial cells.squamous Auto (Urine [...] strip Ql (U) Negative Normal Negativemg /dL [facility] UA Auto SS pH (U) 6.0 *NA* (06/26/24 11:34 PM) Invalid Interpretation Code 5.0 - 9.0 [facility] UA Auto SS Protein Ql (U) 1+ mg/dL Invalid Interpretation Code Negativemg /dL [facility] UA Auto SS RBC Ql (U) 0-3 graded/HPF Normal 0-3graded/ HPF [facility] UA Auto SS Specific gravity (U) [Rel density] 1.031 *NA* (06/26/24 11:34 PM) Invalid Interpretation Code 1.005 - 1.030 [facility] UA Auto SS Urobilinogen (U) [Mass/Vol] 2 mg/dL Invalid Interpretation Code Negativemg /dL [facility] UA Auto SS WBC Auto (Urine sed) [#/Area] 0-5 graded/HPF Normal 0-5graded/ HPF [facility] UA Auto SS URINALYSISOrdered By: Han hutchinson on 06-26-2024 UA Spec Desc Clean Catch (06/26/24 11:34 PM) Normal [facility] UA Auto SS Work Phone: Grp A Strp PCRon 05-23-2024 Group A Strep Negative Normal Negative [facility] Comment on above: Order Comment: Order Added on by Discern Rule. Result Comment: Test ing performed using DNA amplification. Performed By: #### 1 [id number] #### [facility] [address] [place] [address] Grp A Strp Intrl Ctrl Pass Normal Fis [facility] Comment on above: Order Comment: Order Added on by Discern Rule. Performed By: #### 1 [id number] #### [facility] [address] [place] [address] ED Clinical Summaryon 2023 ED Clinical Summary ED Clinical Summary [address] [address] ED Clinical Summary Person Information Name: ROSE MARY SCHNEIDER Kimberly/[facility] Age: 18 Years : 2005 Sex: Female Language: Niuean PCP: Fredi Ellington MD Marital Status: Single [...] 05/22/2024 22:41:58 05/22/2024 22:41:58 05/22/2024 22:41:58 ADDRESS: [address] [facility] [phone] PHYS DOC NOTES: MEDICAL INFORMATION: Prescriptions Given: New Medications [facility]/pharmacy #[id number], [address], [place] [id number], [phone] brompheniramine/dextromet horphan/PSE (Bromfed DM oral syrup) 5 Milliliter By Mouth 4 times a day as needed for cold symptoms. Refills: 0. Medications to Continue Taking That Have Changed [facility]/pharmacy #[id number], [address], [place] [id number], [phone] START: ondansetron (Zofran ODT 4 mg Tab-Dis) [...] EDUCATION INFORMATION: Instructions: Upper Respiratory Infection, Adult, Vryh-up-Dror Follow up: With: Address: When: Fredi Ellington [address] [facility] [address], [address] [place] [phone] Business (1) In 3 days 05/25/2024 Comments: Call Dr for diagnosis based follow up DIAGNOSIS: Viral URI Normal [facility] ED Note-Physicianon 05-22-20 ED Note-Physician ED [...] and Complexity of Problems Differential Diagnosis: [] [facility] Data External documents reviewed: [] My EKG [...] for cold symptoms, 200 mL, Refill(s) 0, [facility]/pharmacy #[id number], 170.2, cm, 05/22/24 21:55:00 EDT, Height/Length Dosing, 115.8, kg, 05/22/24 21:55:00 EDT, Weight Dosing dexamethasone, 10 mg = 1 mL, Injection, Oral, Once, Stop date 05/22/24 22:28:00 EDT, STAT, Start date 05/22/24 22:28:00 EDT, [facility]- max dose 12 mg, 05/22/24 22:28:00 EDT ondansetron, 4 mg = 1 tab(s), Oral, q8hr, PRN Nausea/Vomiting, # 12 tab(s), Refills(s) 0, Pharmacy: [facility]/pharmacy #[id number], 170.2, cm, 05/22/24 21:55:00 EDT, Height/Length Dosing, 115.8, kg, 05/22/24 21:55:00 EDT, Weight Dosing Disposition Plan Patient Discharge Condition Stable Discharge Disposition To home Discharge Prescription List Prescriptions Bromfed DM oral syrup, 5 mL, Oral, QID, PRN Zofran ODT 4 mg Tab-Dis, 4 mg= 1 tab(s), Oral, q8hr, PRN Follow-up With When Contact Information Fredi Ellington In 3 days 05/25/2024 EDT [facility] [place] [address]- (more content not included)... Normal [facility] Comment on above: Result Comment: Elec tronically Signed By: Alexandru Barajas PA-C\.br\Date and Time Signed: 05/22/24 22:31 EDT\.br\Electronically Co-Signed By: Han Bolaños DO\.br\Date and Time Co-Signed: 05/22/24 23:23 EDT ED Patient Summaryon ED Patient Summary ED Patient Summary [address] [address] Patient Discharge Instructions Person Information Name: ROSE MARY SCHNEIDER Age: 18 Years Arrival Date: 05/22/2024 21:47:57 Discharge Diagnosis: Viral URI Primary Care Physician: Fredi Ellington MD Provider Information Primary Provider: Han Bolaños DO Advanced Hand Former:None The exam and treatment you received in the Emergency Department were for an urgent problem and are not intended as complete care. It is important that you follow up with a doctor, nurse practitioner, or physician?s assistant men's soccer coach for ongoing care. If your symptoms become worse or you do not improve as expected and you are unable to reach your usual health care provider, you should return to the Emergency Department. We are available 24 hours a day. JENNIE ROSE MARY Stokes has been given the following list of patient education materials, prescriptions and follow-up instructions: Follow-up Instructions: With: Address: When: Fredi Ellington [address] [place] [address], [facility] [place] [address] Business (1) In 3 days 05/25/2024 Comments: Call Dr for diagnosis based follow up In the event that this physician does not participate in your insurance network, please consult with your insurance company to find a nearby participating provider. Patient Education Materials: Upper Respiratory Infection, Adult, Awcp-au-Jtpa A MESSAGE TO ALL PATIENTS REGARDING OPIOIDS PRESCRIPTION OPIOIDS: WHAT YOU NEED TO KNOW Prescription opioids can be used to help relieve imrxpnxb-cy-tgvfld pain and are often prescribed following a [...] be struggling with addiction, tell your health medicare compliance auditor and ask fo (more content not included)... Normal [facility] Influenza A&B Agon 4 Influenzae A Ag Negative Normal Negative [facility] Comment on above: Performed By: #### 1 [id number] #### [facility] [address] [place] [address] Influenzae B Ag Negative Normal Negative [facility] Comment on above: Result Comment: Test sensitivity and specificity vary for age group, specimen type, antigen types, and prevalence of disease. Test results must be evaluated in conjunction with other clinical data available to the physician. Individuals who received nasally administered Influenza A vaccine may have positive test results up to 3 days after vaccination. Performed By: #### 1 [id number] #### [facility] [address] [place] [address] MICRO OTHER TESTSOrdered By: Ruth Miller on 05-22-2024 Influenzae A Ag Negative (05/22/24 10:00 PM) Normal Negative [facility] Influenzae B Ag Negative 1 (05/22/24 10:00 PM) Normal Negative [facility] Comment on above: Interpretive Data: T [...] NEG Ctl Pass (05/22/24 10:00 PM) Normal [facility] Rapid COV Int POS Ctl Pass (05/22/24 10:00 PM) Normal [facility] SARS-CoV+SARS-CoV-2 (COVID-19) Ag IA.rapid Ql (Resp) Not Detected 2 (05/22/24 10:00 PM) Normal Not Detected [facility] Comment on above: Interpretive Data: T he Cibando Veritor System for Rapid Detection of SARS-CoV-2 [...] (Throat) Negative (05/22/24 10:00 PM) Normal Negative [facility] Rapid COVID Antigen ([facility])on 05-22-2024 Rapid COV Int NEG Ctl Pass Normal [facility] Comment on above: Performed By: #### 2 [id number] #### [facility] [address] [place] [address] Rapid COV Int POS Ctl Pass Normal [facility] Comment on above: Performed By: #### 2 [id number] #### [facility] [address] [place] [address] SARS-CoV+SARS-CoV-2 (COVID-19) Ag IA.rapid Ql (Resp) Not detected Normal Not Detected [facility] Comment on above: Result Comment: The NeuroLogicaitor? System for Rapid Detection of SARS-CoV-2 is [...] For in vitro diagnostic use. In the [facility], only for use under an Emergency [...] other viruses or pathogens; and, in the [facility], this test is only authorized for the duration of the declaration that circumstances exist justifying the authorization of emergency use of in vitro diagnostics for detection and/or diagnosis of the virus that causes COVID-19 under Section 564(b)(1) of the Act, 21 U.S.C. ? 360bbb-3(b)(1), unless the authorization is terminated or revoked sooner. Performed By: #### 2 [id number] #### [facility] [address] [place] [address] Rapid Strep w/rfxon 05-22-20 24 S. pyogenes Ag IA.rapid Ql (Throat) Negative Normal Negative [facility] Comment on above: Performed By: #### 2 [id number] #### [facility] [address] [place] [address] US Thyroidon 05-04-2024 US Thyroid Exam Date/Time: [...] Paul DO Transcribed by: GARTH Technologist: ABENA [facility] Ambulatory Visit Summaryon 0 04-25-2024 Ambulatory [...] mg tab) ethinyl estradiol-norethindrone (08/22 oral tablet) fluoxetine (FLUoxetine [...] quadrant pain History of pancreatitis, No, [facility] Thyroid, 04/25/24, Routine, Order for future visit, Transport Mode: Ambulatory, Reason: Lymph Node, No, Obesity due to excess calories Right upper quadrant pain BMI 40.0-44.9, adult Esophageal dysphagia, pp[facility]radiology[facility]spec[facility] Medications What How Much When Why Instructions Unchanged cetirizine (cetirizine 5 mg oral tablet) 2 Tablets By Mouth Every day Contact prescribing physician if questions or concerns Unchanged clonidine (cloNIDine 0.1 mg tab) 1 Tablets By Mouth Every day Contact prescribing physician if questions or concerns Unchanged ethinyl estradiol-norethindrone (Junel Fe oral tablet) [...] for choosing us for your care. Normal [facility] CHEMISTRYOrdered By: SYSTEM SYSTEM on 04-25-2024 [...] presents today for a follow up from [facility] on 03/13/2024, for complaints of abdominal pain. right sided abd pain, sometimes radiates to the back. Patient also was seen at [facility] ER 03/14/2024 after taking 50 tabs of 200 mg ibuprofen. [facility] ED Note: 03/14/2024 Chief Complaint Took bottle of ibuprofen at 1915. 50 tabs of 200 mg tabs. States suicidal. States some ABD pain. History of Present Illness HPI: Patient is a 18-year-old female with past medical history of seizures and pancreatitis who presents the ED for suicide attempt. Patient states that at 1950 tonight she took 50 lcsw-kbm-xdjmbve ibuprofen of the 200 mg strength. She states that she did not attempt to kill herself. She has had suicide attempts in the past. She denies any Co. ingestion. She has some mild upper abdominal discomfort but denies any other symptoms at this time. [facility] ER: 03/13/2024 Chief complaint: Nausea/Vomiting/Diarrhea HPI narrative: 18-year-old female presents for abdominal pain and nausea and vomiting. She states the abdominal pain started a month ago and she had a CAT scan and an ultrasound at another facility about a week ago. She threw up 6 times today. [facility]: 03/13/2024 Amylase 11 25-115 Low Lipase [...] 83.5 fL (03/14/24) Chloride: 104 mmol/L (03/14/24) [place] Absolute: 0.6 E9/L ( (more content not included)... Normal [facility] Comment on above: Result Comment: Elec tronically Signed By: David MARCANO, Zenon Ratliff\.br\Date and Time Signed: 04/25/24 13:45 EDT T4 & TSHon 04-25-2024 TSH Qn 2.55 m[IU]/L Normal 0.34-5.60 [facility] Comment on above: Performed By: #### 1 [id number] #### [facility] [address] [place] [address] T4 [Mass/Vol] 8.5 microgram/dL Normal 4.6-9.1 [facility] Comment on above: Performed By: #### 1 [id number] #### [facility] [address] [place] [address] CT Head or Brain w/o Contras ton [...] Thierry Mcknight MD Transcribed by: GARTH Technologist: CAROLS [facility] ED Note-Physicianon 04-15-20 ED Note-Physician ED [...] and Complexity of Problems Differential Diagnosis: [] [facility] Data External documents reviewed: [] My EKG [...] Therapy PT & PTT Rapid COVID Antigen ([facility]) Saline Lock Insert Troponin 0 Hr. Troponin 1 Hr. U Beta Hcg Qual UA with Cult Rflx XR Chest 2 Views Disposition Plan Patient Discharge Condition Stable Discharge Disposition Discharge home Discharge Prescription List Prescriptions No active prescription medications Follow-up With When Contact Information Fredi Ellington In 3 days 04/17/2024 EDT [address] [place] [phone] Business (1) Additional Instructions: Return to the [...] FLUoxetine 40 mg Cap 08/22 oral tablet lurasidone 60 mg oral tablet melatonin-pyridoxine 3 mg-10 mg oral tablet, extended release [place] 325 mg-5 mg ora (more content not included)... Normal [facility] Comment on above: Result Comment: Elec tronically Signed By: Bud Louis, Migue Brito\.hemant\Date and Time Signed: 04/15/24 02:15 EDT XR Chest 2 Viewson 4 XR Chest 2 Views Exam Date/Time: 04/14/2024 20:46 EDT Reason for Exam: Chest pain Report IMPRESSION: NO RADIOGRAPHIC EVIDENCE OF ACTIVE DISEASE IN THE CHEST. CLINICAL INFORMATION: Chest pain COMPARISON: MARCH 07, 2023 FINDINGS: Two views of the chest were obtained. Heart and mediastinum appear normal. The lungs appear clear. Visualized bony thorax and remainder of the chest appears unremarkable. Ordering Provider: Migue Farrell FINAL REPORT Dictated: 04/15/2024 8:20 am Thierry Mcknight MD Signed (Electronic Signature): 04/15/2024 8:20 am Signed by: Thierry Mcknight MD Transcribed by: GARTH Technologist: CRICKET Technical Comments Radiation Dose: Ka,r in mGy = NA DAP = NA Normal [facility] BMPon 04-14-2024 Anion gap [Moles/Vol] 12 mmol/L Normal 6-16 [facility] Comment on above: Performed By: #### 2 [id number] #### [facility] [address] [place] [address] Calcium [Mass/Vol] 9.0 mg/dL Normal 8.9-11.1 [facility] Comment on above: Performed By: #### 2 [id number] #### [facility] [address] [facility] [place] [address] Chloride [Moles/Vol] 103 mmol/L Normal 101-111 [facility] Comment on above: Performed By: #### 2 [id number] #### [facility] [address] [place] [address] CO2 [Moles/Vol] 27 mmol/L Normal 21-31 [facility] Comment on above: Performed By: #### 2 [id number] #### [facility] [address] [place] [address] Creatinine [Mass/Vol] 0.9 mg/dL Normal 0.5-1.3 [facility] Comment on above: Performed By: #### 2 [id number] #### [facility] [address] [place] [address] Glucose [Mass/Vol] 90 mg/dL Normal 55-199 [facility] Comment on above: Performed By: #### 2 [id number] #### [facility] [address] [place] [address] Potassium [Moles/Vol] 3.7 mmol/L Normal 3.5-5.3 [facility] Comment on above: Performed By: #### 2 [id number] #### [facility] [address] [place] [address] Sodium [Moles/Vol] 138 mmol/L Normal 135-145 [facility] Comment on above: Performed By: #### 2 [id number] #### [facility] [address] [place] [address] Urea nitrogen [Mass/Vol] 13 mg/dL Normal 5-21 [facility] Comment on above: Performed By: #### 2 [id number] #### [facility] [address] [place] [address] Urea nitrogen/Creatinine [Mass ratio] 14 No Units Normal 10-20 [facility] Comment on above: Performed By: #### 2 [id number] #### [facility] [address] [place] [address] CBC w/ Auto Diffon 4 Basophils/100 WBC (Bld) 0.5 % Normal 0.0-2.0 [facility] Comment on above: Performed By: #### 2 [id number] #### [facility] [address] [place] [address] Basophils/Leukocytes Auto (Bld) [Pure # fraction] 0.1 E9/L Normal 0.0-0.2 [facility] Comment on above: Performed By: #### 2 [id number] #### [facility] [address] [place] [address] Eosinophils (Bld) [#/Vol] 0.6 E9/L High 0.0-0.5 [facility] Comment on above: Performed By: #### 2 [id number] #### [facility] [address] [place] [address] Eosinophils/100 WBC (Bld) 6.0 % Normal 0.0-8.0 [facility] Comment on above: Performed By: #### 2 [id number] #### [facility] [address] [place] [address] Erythrocyte distribution width (RBC) [Ratio] 13.7 % Normal 10.9-14.2 [facility] Comment on above: Performed By: #### 2 [id number] #### [facility] [address] [place] [address] Hematocrit (Bld) [Volume fraction] 36.0 % Normal 34.0-46.0 [facility] Comment on above: Performed By: #### 2 [id number] #### [facility] [address] [place] [address] Hemoglobin (Bld) [Mass/Vol] 12.1 g/dL Normal 12.0-16.0 [facility] Comment on above: Performed By: #### 2 [id number] #### [facility] [address] [place] [address] Lymphocytes (Bld) [#/Vol] 2.6 E9/L Normal 1.0-4.0 [facility] Comment on above: Performed By: #### 2 [id number] #### [facility] [address] [place] [address] Lymphocytes/100 WBC (Bld) 25.5 % Normal 14.0-50.0 [facility] Comment on above: Performed By: #### 2 [id number] #### [facility] [address] [place] [address] MCH (RBC) [Entitic mass] 28.1 pg Normal 27.0-34.0 [facility] Comment on above: Performed By: #### 2 [id number] #### [facility] [address] [place] [address] MCHC (RBC) [Mass/Vol] 33.7 g/dL Normal 31.4-36.0 [facility] Comment on above: Performed By: #### 2 [id number] #### [facility] [address] [place] [address] MCV (RBC) [Entitic vol] 83.2 fL Normal 80.0-100.0 [facility] Comment on above: Performed By: #### 2 [id number] #### [facility] [address] [place] [address] Monocytes (Bld) [#/Vol] 0.6 E9/L Normal 0.2-1.0 [facility] Comment on above: Performed By: #### 2 [id number] #### [facility] [address] [place] [address] Neutrophils (Bld) [#/Vol] 6.4 E9/L Normal 2.0-7.5 [facility] Comment on above: Performed By: #### 2 [id number] #### [facility] [address] [place] [address] Neutrophils/100 WBC (Bld) 62.5 % Normal 36.0-75.0 [facility] Comment on above: Performed By: #### 2 [id number] #### [facility] [address] [place] [address] Platelet mean volume (Bld) [Entitic vol] 7.3 fL Normal 6.4-10.8 [facility] Comment on above: Performed By: #### 2 [id number] #### [facility] [address] [place] [address] Platelets (Bld) [#/Vol] 449.0 E9/L Normal 150. 0-500. 0 [facility] Comment on above: Performed By: #### 2 [id number] #### [facility] [address] [place] [address] RBC (Bld) [#/Vol] 4.3 E12/L Normal 4.3-5.9 [facility] Comment on above: Performed By: #### 2 [id number] #### [facility] [address] [place] [address] WBC corrected for nucl RBC Auto (Bld) [#/Vol] 10.3 E9/L Normal 4.0-11.0 [facility] Comment on above: Performed By: #### 2 [id number] #### [facility] [address] [place] [address] CHEMISTRYOrdered By: SYSTEM SYSTEM on 04-14-2024 Troponin HS pg/mL Low 10.10 - 27.10 pg/mL [facility] Comment on above: Interpretive Data: T nicole 95% CI (Confidence Interval) PPV (Positive Predictive [...] Stephy Akhil, March 2018) Urea nitrogen [Mass/Vol] 13 mg/dL [...] 37.7 s High 25.1 - 36.5 second(s) [facility] Comment on above: Interpretive Data: P patymeter 15 days - 4 weeks 1 - [...] same coagulation reagent and instrumentation as [facility]. Currently there are no coagulation studies available worldwide for children to 14 days, and no normal ranges. Heparin therapeutic range (represented by Anti-Factor Xa activity of 0.2 - 0.4 U/mL) corresponds to PTT of 56.6 - 109.0 sec. INR Coag (PPP) [Relative time] 0.97 {INR} Invalid Interpretation Code [facility] Comment on above: Interpretive Data: I NR results are specifically intended to assess patients stabilized on long-term Anticoagulation therapy suggested INR s Less Intensive Anticoagulation 2.0 3.0 Conventional Range 3.0 4.5 PT Coag (PPP) [Time] 10.9 s Normal 9.4 - 1 2.5 second(s) [facility] Comment on above: Interpretive Data: [...] same coagulation reagent and instrumentation as [facility]. Currently there are no coagulation studies available worldwide for children to 14 days, and no normal ranges. ED Clinical Summaryon 2023 ED Clinical Summary ED Clinical Summary [place] [address] ED Clinical Summary Person Information Name: ROSE MARY SCHNEIDER [facility] Age: 18 Years : 2005 Sex: Female Language: Niuean PCP: Fredi Ellington MD Marital Status: Single [...] 04/14/2024 22:31:18 04/14/2024 22:31:18 04/14/2024 22:31:18 ADDRESS: [address] [place] [address] [address] [place] [phone] PHYS DOC NOTES: MEDICAL INFORMATION: Prescriptions Given: Medications to Continue with No Changes Other Medications acetaminophen-hydrocodone ([place] 325 mg-5 mg oral tablet) 1 Tablets [...] Follow up: With: Address: When: Fredi Ellington [address] [place] [address] [place] [phone] Business (1) In 3 days 04/17/2024 Comments: Return to the emergency room if the syncopal episode recurs or any new symptoms DIAGNOSIS: 1:Syncope Normal [facility] ED Patient Summaryon ED Patient Summary ED Patient Summary [address] [address] Patient Discharge Instructions Person Information Name: ROSE MARY SCHNEIDER Age: 18 Years Arrival Date: 04/14/2024 20:00:50 Discharge Diagnosis: 1:Syncope Primary Care Physician: Fredi Ellington MD Provider Information Primary Provider: Migue Farrell M.D. Advanced Hand Former:None The exam and treatment you received in the Emergency Department were for an urgent problem and are not intended as complete care. It is important that you follow up with a doctor, nurse practitioner, or physician?s assistant men's soccer coach for ongoing care. If your symptoms become worse or you do not improve as expected and you are unable to reach your usual health care provider, you should return to the Emergency Department. We are available 24 hours a day. SCHNEIDER, ROSE MARY R has been given the following list of patient education materials, prescriptions and follow-up instructions: Follow-up Instructions: With: Address: When: Fredi Ellington [address] [facility], [address] [place] [phone] Business (1) In 3 days 04/17/2024 Comments: [...] opioids can be used to help relieve ocrxnqdx-lm-qwefhf pain and are often prescribed following a [...] be struggling with addiction, tell your health medicare compliance auditor an (more content not included)... Normal [facility] HEMATOLOGYOrdered By: SYSTEM SYSTEM on 04-14-2024 [...] 04-14-2024 Albumin [Mass/Vol] 3.8 g/dL Normal 3.3-5.0 [facility] Comment on above: Performed By: #### 2 [id number] #### [facility] [address] [place] [address] Albumin/Globulin (S) [Mass conc ratio] 1.1 Normal 1.1-2.2 [facility] Comment on above: Performed By: #### 2 [id number] #### [facility] [address] [place] [address] ALP [Catalytic activity/Vol] 59 Int._Unit/L Normal 21-98 [facility] Comment on above: Performed By: #### 2 [id number] #### [facility] [address] [place] [address] ALT No additional P-5'-P [Catalytic activity/Vol] 18 Int._Unit/L Normal 6-46 [facility] Comment on above: Performed By: #### 2 [id number] #### [facility] [address] [place] [address] AST [Catalytic activity/Vol] 17 Int._Unit/L Normal 5-43 [facility] Comment on above: Performed By: #### 2 [id number] #### [facility] [address] [place] [address] Bilirubin [Mass/Vol] 0.3 mg/dL Normal 0.0-1.1 [facility] Comment on above: Performed By: #### 2 [id number] #### [facility] [address] [place] [address] Bilirubin.direct [Mass/Vol] 0.0 mg/dL Normal 0.0-0.4 [facility] Comment on above: Performed By: #### 2 [id number] #### [facility] [address] [place] [address] Bilirubin.indirect [Mass or moles/Vol] 0.3 mg/dL Normal 0.1-0.9 [facility] Comment on above: Performed By: #### 2 [id number] #### [facility] [address] [place] [address] Globulin (S) [Mass/Vol] 3.6 g/dL Normal 1.4-4.0 [facility] Comment on above: Performed By: #### 2 [id number] #### [facility] [address] [place] [address] Protein [Mass/Vol] 7.4 g/dL Normal 6.0-7.8 [facility] Comment on above: Performed By: #### 2 [id number] #### [facility] [address] [place] [address] MICRO OTHER TESTSOrdered By: Ruth Miller on 04-14-2024 Rapid COV Int NEG Ctl Pass (04/14/24 8:59 PM) Normal FT Man Sero Rapid COV Int POS Ctl Pass (04/14/24 8:59 PM) Normal [facility] Man Sero SARS-CoV+SARS-CoV-2 (COVID-19) Ag IA.rapid Ql (Resp) Not Detected 14 (04/14/24 8:59 PM) Normal Not Detected [facility] Comment on above: Interpretive Data: Louis rivera Cibando Veritor System for Rapid Detection of SARS-CoV-2 [...] For in vitro diagnostic use. In the [facility], only for use under an Emergency Use Authorization. In the [facility], this test has not been FDA cleared [...] 04-14-2024 Magnesium [Mass/Vol] 1.7 mg/dL Normal 1.3-2.4 [facility] Comment on above: Performed By: #### 2 [id number] #### [facility] [address] [place] [address] PT & PTTon 04-14-2024 aPTT Coag (PPP) [Time] 37.7 second(s) High 25.1-36.5 [facility] Comment on above: Result Comment: Para [...] same coagulation reagent and instrumentation as [facility]. Currently there are no coagulation studies available worldwide for children to 14 days, and no normal ranges. Heparin therapeutic range (represented by Anti-Factor Xa activity of 0.2 - 0.4 U/mL) corresponds to PTT of 56.6 - 109.0 sec. Performed By: #### 1 [id number] #### [facility] [address] [place] [address] INR Coag (PPP) [Relative time] 0.97 {INR} Invalid Interpretation Code [facility] Comment on above: Result Comment: INR results are specifically intended to assess patients stabilized on long-term Anticoagulation therapy suggested INR?s ?Less Intensive Anticoagulation? 2.0 ? 3.0 Conventional Range 3.0 ? 4.5 Performed By: #### 1 [id number] #### [facility] [address] [place] [address] PT Coag (PPP) [Time] 10.9 second(s) Normal 9.4-12.5 [facility] Comment on above: Result Comment: 15 [...] same coagulation reagent and instrumentation as [facility]. Currently there are no coagulation studies available worldwide for children to 14 days, and no normal ranges. Performed By: #### 1 [id number] #### [facility] [address] [place] [address] Rapid COVID Antigen ([facility])on 04-14-2024 Rapid COV Int NEG Ctl Pass Normal [facility] Comment on above: Performed By: #### 2 [id number] #### [facility] [address] [place] [address] Rapid COV Int POS Ctl Pass Normal [facility] Comment on above: Performed By: #### 2 [id number] #### [facility] [address] [place] [address] SARS-CoV+SARS-CoV-2 (COVID-19) Ag IA.rapid Ql (Resp) Not detected Normal Not Detected [facility] Comment on above: Result Comment: The [employer]Log[employer]or[employer] System for Rapid Detection of SARS-CoV-2 is [...] other viruses or pathogens; and, in the [facility], this test is only authorized for the duration of the declaration that circumstances exist justifying the authorization of emergency use of in vitro diagnostics for detection and/or diagnosis of the virus that causes COVID-19 under Section 564(b)(1) of the Act, 21 U.S.C. ? 360bbb-3(b)(1), unless the authorization is terminated or revoked sooner. Performed By: #### 2 [id number] #### [facility] [address] [place] [address] SEROLOGYOrdered By: Ruth orellana on 04-14-2024 HCG.beta subunit (U) [Moles/Vol] Negative Normal [facility] Man Sero Troponin 0 Hr.on 04-14-2024 Troponin HS 2.60 pg/mL Low 10.10-27.1 0 [facility] Comment on above: Result Comment: The 95% CI (Confidence Interval) PPV (Positive Predictive Value) for myocardial infarction in females is 38 pg/mL, in males 51 pg/mL. The results should be used in conjunction with clinical conditions of myocardial infarction. (Access High Sensitivity Troponin I Instructions For Use, Stephy Hopkins, March 2018) Performed By: #### 1 [id number] #### [facility] [address] [place] [address] Troponin 1 Hr.on 04-14-2024 Troponin HS <2.30 Low 10.10-27.1 0 [facility] Comment on above: Order Comment: 2129 Result Comment: The 95% CI (Confidence Interval) PPV (Positive Predictive Value) for myocardial infarction in females is 38 pg/mL, in males 51 pg/mL. The results should be used in conjunction with clinical conditions of myocardial infarction. (Access High Sensitivity Troponin I Instructions For Use, Stephy Akhil, March 2018) Performed By: #### 1 [id number] #### [facility] [address] [place] [address] U BetaHcg Qualon 04-14-2024 HCG.beta subunit (U) [Moles/Vol] Negative Normal [facility] Comment on above: Performed By: #### 2 [id number] #### [facility] [address] [place] [address] U Drug Screenon 04-14-2024 Amphetamines Screen method >1000 ng/mL Ql (U) Negative Normal NEGATIVE [facility] Comment on above: Result Comment: Nega tive Cutoff: <1000 ng/mL Performed By: #### 2 [id number] #### [facility] [address] [place] [address] Barbiturates Screen Ql (U) Negative Normal NEGATIVE [facility] Comment on above: Result Comment: Nega tive Cutoff: <200 ng/mL Performed By: #### 2 [id number] #### [facility] [address] [place] [address] Benzodiazepines Ql (U) Negative Normal NEGATIVE [facility] Comment on above: Result Comment: Nega tive Cutoff: <200 ng/mL Performed By: #### 2 [id number] #### [facility] [address] [place] [address] Cannabinoids Screen Ql (U) Negative Normal NEGATIVE [facility] Comment on above: Result Comment: Nega tive Cutoff: <50 ng/mL Performed By: #### 2 [id number] #### [facility] [address] [place] [address] Cocaine Ql (U) Negative Normal NEGATIVE [facility] Comment on above: Result Comment: Nega tive Cutoff: <300 ng/mL Performed By: #### 2 [id number] #### [facility] [address] [place] [address] Opiates Screen Ql (U) Negative Normal NEGATIVE [facility] Comment on above: Result Comment: Nega tive Cutoff: <300 ng/mL Performed By: #### 2 [id number] #### [facility] [address] [place] [address] Phencyclidine Screen method >25 ng/mL Ql (U) Negative Normal NEGATIVE [facility] Comment on above: Result Comment: Nega tive Cutoff: <25 ng/mL These drug screen results are to be used for medical (i.e., treatment) purposes only. Unconfirmed drug screening results must not be used for non-medical purposes (e.g., employment testing, legal testing). Performed By: #### 2 [id number] #### [facility] [address] [place] [address] U Fentanyl Negative Normal NEGATIVE [facility] Comment on above: Result Comment: Nega tive Cutoff: <5 ng/mL These drug screen results are to be used for medical (i.e., treatment) purposes only. Unconfirmed drug screening results must not be used for non-medical purposes (e.g., employment testing, legal testing). Performed By: #### 2 [id number] #### [facility] [address] [place] [address] UA with Cult Rflxon 04-14-20 24 Bilirubin Ql (U) Negative Normal Negative [facility] Comment on above: Performed By: #### 4 [id number] #### [facility] [address] [place] [address] Clarity (U) Clear Normal Clear [facility] Comment on above: Performed By: #### 4 [id number] #### [facility] [address] [place] [address] Color (U) Light-Yellow Normal Yellow [facility] Comment on above: Result Comment: Micr oscopic readings are only performed on those samples that meet specific criteria set forth by [facility]. Performed By: #### 4 [id number] #### [facility] [address] [place] [address] Epithelial cells.squamous Auto (Urine sed) [#/Area] 5-8 Invalid Interpretation Code [facility] Comment on above: Performed By: #### 4 [id number] #### [facility] [address] [place] [address] Glucose Ql (U) Negative Normal Negative [facility] Comment on above: Performed By: #### 4 [id number] #### [facility] [address] [place] [address] Hemoglobin Auto test strip (U) [Mass/Vol] 1+ mg/dL Abnormal Negative [facility] Comment on above: Performed By: #### 4 [id number] #### [facility] [address] [place] [address] Ketones Auto test strip Ql (U) Negative Normal Negative [facility] Comment on above: Performed By: #### 4 [id number] #### [facility] [address] [place] [address] Leukocyte esterase Auto test strip Ql (U) Negative Normal Negative [facility] Comment on above: Performed By: #### 4 [id number] #### [facility] [address] [place] [address] Mucus Auto Ql (U) Trace Normal Negative [facility] Comment on above: Performed By: #### 4 [id number] #### [facility] [address] [place] [address] Nitrite Auto test strip Ql (U) Negative Normal Negative [facility] Comment on above: Performed By: #### 4 [id number] #### [facility] [address] [place] [address] pH (U) 5.5 [pH] Invalid Interpretation Code 5.0-9.0 [facility] Comment on above: Performed By: #### 4 [id number] #### [facility] [address] [place] [address] Protein Ql (U) Trace Abnormal Negative [facility] Comment on above: Performed By: #### 4 [id number] #### [facility] [address] [place] [address] RBC Ql (U) 4-20 Abnormal 0-3 [facility] Comment on above: Performed By: #### 4 [id number] #### [facility] [address] [place] [address] Specific gravity (U) [Rel density] 1.028 Invalid Interpretation Code 1.005-1.03 0 [facility] Comment on above: Performed By: #### 4 [id number] #### [facility] [address] [place] [address] Urobilinogen (U) [Mass/Vol] Negative Normal Negative [facility] Comment on above: Performed By: #### 4 [id number] #### [facility] [address] [place] [address] WBC Auto (Urine sed) [#/Area] 0-5 Normal 0-5 [facility] Comment on above: Performed By: #### 4 [id number] #### [facility] [address] [place] [address] Type of Urine collection method Clean Catch Normal [facility] Comment on above: Performed By: #### 4 [id number] #### [facility] [address] [place] [address] URINALYSISOrdered By: SYSTEM SYSTEM on 04-14-2024 Bilirubin Ql (U) Negative Normal Negativemg /dL FT UA Auto SS Clarity (U) Clear (04/14/24 8:26 PM) Normal Clear FT UA Auto SS Color (U) Light-Yellow 3 (04/14/24 8:26 PM) Normal Yellow FT UA Auto SS Comment on above: Interpretive Data: M icroscopic readings are only performed on those samples that meet specific criteria set forth by [facility]. Epithelial cells.squamous Auto (Urine sed) [#/Area] 5-8 graded/HPF Invalid Interpretation Code FT UA Auto [...] /dL FT UA Auto SS pH (U) 5.5 *NA* (04/14/24 8:26 PM) Invalid Interpretation Code 5.0 - 9.0 [facility] UA Auto SS Protein Ql (U) Trace mg/dL Invalid Interpretation Code Negativemg /dL FT UA Auto SS RBC Ql (U) 4-20 graded/HPF Invalid Interpretation Code 0-3graded/ HPF [facility] UA Auto SS Specific gravity (U) [Rel density] 1.028 *NA* (04/14/24 8:26 PM) Invalid Interpretation Code 1.005 - 1.030 [facility] UA Auto SS Urobilinogen (U) [Mass/Vol] Negative Normal Negativemg /dL [facility] UA Auto SS WBC Auto (Urine sed) [#/Area] 0-5 graded/HPF Normal 0-5graded/ HPF [facility] UA Auto SS URINALYSISOrdered By: Migue Farrell on 04-14-2024 UA Spec Desc Clean Catch (04/14/24 8:26 PM) Normal [facility] UA Auto SS eGFRon 04-14-2024 eGFR 94 mL/min/1.73 m2 Normal >=59 [facility] Comment on above: Order Comment: Order added by Discern Expert. Performed By: #### 1 [id number] #### [facility] [address] [place] [address] B hCG Qualon 04-10-2024 Beta HCG ( test) Ql Negative Normal [facility] Comment on above: Performed By: #### 2 [id number] #### [facility] [address] [place] [address] BMPon 04-10-2024 Anion gap [Moles/Vol] 12 mmol/L Normal 6-16 [facility] Comment on above: Performed By: #### 2 [id number] #### [facility] [address] [place] [address] Calcium [Mass/Vol] 8.9 mg/dL Normal 8.9-11.1 [facility] Comment on above: Performed By: #### 2 [id number] #### [facility] [address] [place] [address] Chloride [Moles/Vol] 101 mmol/L Normal 101-111 [facility] Comment on above: Performed By: #### 2 [id number] #### [facility] [address] [place] [address] CO2 [Moles/Vol] 27 mmol/L Normal 21-31 [facility] Comment on above: Performed By: #### 2 [id number] #### [facility] [address] [place] [address] Creatinine [Mass/Vol] 0.8 mg/dL Normal 0.5-1.3 [facility] Comment on above: Performed By: #### 2 [id number] #### [facility] [address] [place] [address] Glucose [Mass/Vol] 92 mg/dL Normal 55-199 [facility] Comment on above: Performed By: #### 2 [id number] #### [facility] [address] [place] [address] Potassium [Moles/Vol] 3.6 mmol/L Normal 3.5-5.3 [facility] Comment on above: Performed By: #### 2 [id number] #### [facility] [address] [place] [address] Sodium [Moles/Vol] 136 mmol/L Normal 135-145 [facility] Comment on above: Performed By: #### 2 [id number] #### [facility] [address] [place] [address] Urea nitrogen [Mass/Vol] 15 mg/dL Normal 5-21 [facility] Comment on above: Performed By: #### 2 [id number] #### [facility] [address] [place] [address] Urea nitrogen/Creatinine [Mass ratio] 19 No Units Normal 10-20 [facility] Comment on above: Performed By: #### 2 [id number] #### [facility] [address] [place] [address] CBC w/ Auto Diffon 4 Basophils/100 WBC (Bld) 0.6 % Normal 0.0-2.0 [facility] Comment on above: Performed By: #### 2 [id number] #### [facility] [address] [place] [address] Basophils/Leukocytes Auto (Bld) [Pure # fraction] 0.1 E9/L Normal 0.0-0.2 [facility] Comment on above: Performed By: #### 2 [id number] #### [facility] [address] [place] [address] Eosinophils (Bld) [#/Vol] 0.3 E9/L Normal 0.0-0.5 [facility] Comment on above: Performed By: #### 2 [id number] #### [facility] [address] [place] [address] Eosinophils/100 WBC (Bld) 2.6 % Normal 0.0-8.0 [facility] Comment on above: Performed By: #### 2 [id number] #### [facility] [address] [place] [address] Erythrocyte distribution width (RBC) [Ratio] 13.9 % Normal 10.9-14.2 [facility] Comment on above: Performed By: #### 2 [id number] #### [facility] [address] [place] [address] Hematocrit (Bld) [Volume fraction] 36.4 % Normal 34.0-46.0 [facility] Comment on above: Performed By: #### 2 [id number] #### [facility] [address] [place] [address] Hemoglobin (Bld) [Mass/Vol] 12.1 g/dL Normal 12.0-16.0 [facility] Comment on above: Performed By: #### 2 [id number] #### [facility] [facility] [address] [place] [address] Lymphocytes (Bld) [#/Vol] 3.2 E9/L Normal 1.0-4.0 [facility] Comment on above: Performed By: #### 2 [id number] #### [facility] [address] [place] [address] Lymphocytes/100 WBC (Bld) 25.9 % Normal 14.0-50.0 [facility] Comment on above: Performed By: #### 2 [id number] #### [facility] [address] [place] [address] MCH (RBC) [Entitic mass] 27.4 pg Normal 27.0-34.0 [facility] Comment on above: Performed By: #### 2 [id number] #### [facility] [address] [place] [address] MCHC (RBC) [Mass/Vol] 33.1 g/dL Normal 31.4-36.0 [facility] Comment on above: Performed By: #### 2 [id number] #### [facility] [address] [place] [address] MCV (RBC) [Entitic vol] 82.7 fL Normal 80.0-100.0 [facility] Comment on above: Performed By: #### 2 [id number] #### [facility] [address] [place] [address] Monocytes (Bld) [#/Vol] 0.9 E9/L Normal 0.2-1.0 [facility] Comment on above: Performed By: #### 2 [id number] #### [facility] [address] [place] [address] Neutrophils (Bld) [#/Vol] 8.0 E9/L High 2.0-7.5 [facility] Comment on above: Performed By: #### 2 [id number] #### [facility] [address] [place] [address] Neutrophils/100 WBC (Bld) 63.6 % Normal 36.0-75.0 [facility] Comment on above: Performed By: #### 2 [id number] #### [facility] [address] [place] [address] Platelet mean volume (Bld) [Entitic vol] 8.3 fL Normal 6.4-10.8 [facility] Comment on above: Performed By: #### 2 [id number] #### [facility] [address] [place] [address] Platelets (Bld) [#/Vol] 452.0 E9/L Normal 150. 0-500. 0 [facility] Comment on above: Performed By: #### 2 [id number] #### [facility] [address] [place] [address] RBC (Bld) [#/Vol] 4.4 E12/L Normal 4.3-5.9 [facility] Comment on above: Performed By: #### 2 [id number] #### [facility] [address] [place] [address] WBC corrected for nucl RBC Auto (Bld) [#/Vol] 12.5 E9/L High 4.0-11.0 [facility] Comment on above: Performed By: #### 2 [id number] #### [facility] [address] [place] [address] CHEMISTRYOrdered By: SYSTEM SYSTEM on 04-10-2024 Anion [...] Stephy Akhil, March 2018) Urea nitrogen [Mass/Vol] 15 mg/dL Normal 5 - 21 mg/dL Remisol Chem Urea nitrogen/Creatinine [Mass ratio] 19 mg/mg Normal 10 - 20 Remisol Chem ED Clinical Summaryon 2023 ED Clinical Summary ED Clinical Summary [place] [address] ED Clinical Summary Person Information Name: ROSE MARY SCHNEIDER [facility] Age: 18 Years : 2005 Sex: Female Language: Niuean PCP: Fredi Ellington MD Marital Status: Single [...] 06:46:14 04/10/2024 06:46:14 04/10/2024 06:46:14 AD[address]ESS: [address] [place] [id number] PHYS DOC NOTES: MEDICAL INFORMATION: Prescriptions Given: Medications to Continue with No Changes Other Medications acetaminophen-hydrocodone ([place] 325 mg-5 mg oral tablet) 1 Tablets [...] tablet) PATIENT EDUCATION INFORMATION: Instructions: Syncope, Adult, Fdct-vh-Tscb Follow up: With: Address: When: Fredi Ellington [address] [place] [address], [facility] [place] [phone] Business (1) In 3 days 04/13/2024 Comments: Follow-up with your primary care doctor for further evaluation and management. Please return to the ED for any new or worsening symptoms. DIAGNOSIS: Syncope Normal [facility] ED Note-Physicianon 04-10-20 24 ED Note-Physician ED Note-Physician Basic Information Time [...] and Complexity of Problems Differential Diagnosis: [] [facility] Data External documents reviewed: [] My EKG [...] Ellington In 3 days 04/13/2024 EDT [address] [place] [address]- Business (1) Additional Instructions: Follow-up with your primary care doctor for further evaluation and management. Please return to the ED for any new or worsening symptoms. Patient Education Syncope, Adult, Pkss-lh-Belm Problem List/Past Medical History Ongoing Acute pancreatitis [...] 3 mg-10 mg oral tablet, extended release [place] 325 mg-5 mg oral tablet, 1 tab(s), [...] 05:37:00) HGB: (more content not included)... Normal [facility] Comment on above: Result Comment: Elec tronically Signed By: Ko Draper DO\.br\Date and Time Signed: 04/10/24 06:32 EDT ED Patient Summaryon 024 ED Patient Summary ED Patient Summary [address] [address] Patient Discharge Instructions Person Information Name: ROSE MAYR SCHNEIDER Age: 18 Years Arrival Date: 04/10/2024 04:28:55 Discharge Diagnosis: Syncope Primary Care Physician: Fredi Ellington MD Provider Information Primary Provider: Ko Draper DO Advanced Hand Former:None The exam and treatment you received in the Emergency Department were for an urgent problem and are not intended as complete care. It is important that you follow up with a doctor, nurse practitioner, or physician?s assistant men's soccer coach for ongoing care. If your symptoms become [...] Follow-up Instructions: With: Address: When: Fredi Ellington [address] [place] [address], [facility] [place] [address] Business (1) In 3 days 04/13/2024 Comments: Follow-up with your primary care doctor for further evaluation and management. Please return to the ED for any new or worsening symptoms. In the event that this physician does not participate in your insurance network, please consult with your insurance company to find a nearby participating provider. Patient Education Materials: Syncope, Adult, Ajiv-xo-Vldr A MESSAGE TO ALL PATIENTS REGARDING OPIOIDS PRESCRIPTION OPIOIDS: WHAT YOU NEED TO KNOW Prescription opioids can be used to help relieve fehkcpeo-bs-wiobxe pain and are often prescribed following a [...] you may (more content not included)... Normal [facility] HEMATOLOGYOrdered By: SYSTEM SYSTEM on 04-10-2024 [...] 04-10-2024 Magnesium [Mass/Vol] 1.9 mg/dL Normal 1.3-2.4 [facility] Comment on above: Performed By: #### 2 [id number] #### [facility] [address] [place] [address] SEROLOGYOrdered By: Lio Sherman on 04-10-2024 Beta HCG ( test) Ql Negative (04/10/24 5:37 AM) Normal [facility] Man Sero Troponin 0 Hr.on 04-10-2024 Troponin HS 3.10 pg/mL Low 10.10-27.1 0 [facility] Comment on above: Result Comment: The 95% CI (Confidence Interval) PPV (Positive Predictive Value) for myocardial infarction in females is 38 pg/mL, in males 51 pg/mL. The results should be used in conjunction with clinical conditions of myocardial infarction. (Access High Sensitivity Troponin I Instructions For Use, Stephy Hopkins, March 2018) Performed By: #### 1 [id number] #### [facility] [address] [place] [address] eGFRon 04-10-2024 eGFR 109 mL/min/1.73 m2 Normal >=59 [facility] Comment on above: Order Comment: Order added by Discern Expert. Performed By: #### 1 [id number] #### [facility] [address] [place] [address] C Urineon 03-16-2024 Bacteria identified Cx Nom [...] Locations R1: This test was performed at: [facility], [address] [place] [address], [phone] , , [facility] Comment on above: Performed By: #### 2 [id number] #### [facility] [address] [place] [address] ED Clinical Summaryon 2023 ED Clinical Summary ED Clinical Summary [address] [address] ED Clinical Summary Person Information Name: ROSE MARY SCHNEIDER [facility] Age: 18 Years : 2005 Sex: Female Language: Niuean PCP: Fredi Ellington MD Marital Status: Single [...] 03/15/2024 01:10:59 03/15/2024 01:10:59 03/15/2024 01:10:59 ADDRESS: [address] [place] [id number] [facility] DOC NOTES: MEDICAL INFORMATION: Prescriptions Given: Medications to Continue with No Changes Other Medications acetaminophen-hydrocodone ([place] 325 mg-5 mg oral tablet) 1 Tablets [...] Help Yourself Follow up: With: Address: When: [facility] In 1 day 03/16/2024 With: Address: When: Fredi Ellington [address] [facility], [place] [address] Business (1) In 3 days DIAGNOSIS: Ibuprofen overdose Normal [facility] ED Note-Physicianon 03-15-20 ED Note-Physician ED [...] that at 1950 tonight she took 50 kpig-tkj-xgciiyc ibuprofen of the 200 mg strength. She [...] and Complexity of Problems Differential Diagnosis: [] [facility] Data External documents reviewed: N/A My EKG [...] prescription medications Follow-up With When Contact Information [facility] In 1 day 03/16/2024 EDT Additional Instructions: Fredi Ellington In 3 days [address] [place] [phone] [facility] (1) Additional Instructions: Patient Education [...] 3 mg-10 mg oral tablet, extended release [place] 325 mg-5 mg oral tablet, 1 tab(s), [...] Lymph Auto: 52.2 % High (03/14/24 22:04:00) [place] Auto: 9.6 % (03/14/24 22:04:00) Eos Auto: 2.3 % (03/14/24 22:04:00) Basophil Auto: 0.4 % (03/14/24 22:04:00) Neutro (more content not included)... Normal [facility] Comment on above: Result Comment: Elec tronically Signed By: Han Bolaños DO\.br\Date and Time Signed: 03/15/24 00:56 EDT ED Patient Summaryon 024 ED Patient Summary ED Patient Summary [place] [id number] Patient Discharge Instructions Person Information Name: ROSE MARY SCHNEIDER Age: 18 Years Arrival Date: 03/14/2024 21:06:23 Discharge Diagnosis: Ibuprofen overdose Primary Care Physician: Fredi Ellington MD Provider Information Primary Provider: Hna Bolaños DO Advanced Hand Former:None The exam and treatment you received in the Emergency Department were for an urgent problem and are not intended as complete care. It is important that you follow up with a doctor, nurse practitioner, or physician?s assistant men's soccer coach for ongoing care. If your symptoms become worse or you do not improve as expected and you are unable to reach your usual health care provider, you should return to the Emergency Department. We are available 24 hours a day. ROSE MARY SCHNEIDER has been given the following list of patient education materials, prescriptions and follow-up instructions: Follow-up Instructions: With: Address: When: [facility] In 1 day 03/16/2024 With: Address: When: Fredi Ellington [address] [place] [address] [place] [phone] [facility] () In 3 days In the event that this physician does not participate in your insurance network, please consult with your insurance company to find a nearby participating provider. Patient Education Materials: Suicidal Feelings: How to Help Yourself A MESSAGE TO ALL PATIENTS REGARDING OPIOIDS PRESCRIPTION OPIOIDS: WHAT YOU NEED TO KNOW Prescription opioids can be used to help relieve fgwiegac-pm-jqlnql pain and are often prescribed following a [...] care pr (more content not included)... Normal [facility] Acetamnphn Lvlon 03-14-2024 Acetaminoph Lvl <.1 Low 15.0-30.0 [facility] Comment on above: Performed By: #### 2 [id number] #### [facility] [address] [place] [address] CBC w/ Auto Diffon 4 Basophils/100 WBC (Bld) 0.4 % Normal 0.0-2.0 [facility] Comment on above: Performed By: #### 2 [id number] #### [facility] [address] [place] [address] Basophils/Leukocytes Auto (Bld) [Pure # fraction] 0.0 E9/L Normal 0.0-0.2 [facility] Comment on above: Performed By: #### 2 [id number] #### [facility] [address] [place] [address] Eosinophils (Bld) [#/Vol] 0.2 E9/L Normal 0.0-0.5 [facility] Comment on above: Performed By: #### 2 [id number] #### [facility] [address] [place] [address] Eosinophils/100 WBC (Bld) 2.3 % Normal 0.0-8.0 [facility] Comment on above: Performed By: #### 2 [id number] #### [facility] [address] [place] [address] Erythrocyte distribution width (RBC) [Ratio] 13.8 % Normal 10.9-14.2 [facility] Comment on above: Performed By: #### 2 [id number] #### [facility] [address] [place] [address] Hematocrit (Bld) [Volume fraction] 35.4 % Normal 34.0-46.0 [facility] Comment on above: Performed By: #### 2 [id number] #### [facility] [address] [place] [address] Hemoglobin (Bld) [Mass/Vol] 12.2 g/dL Normal 12.0-16.0 [facility] Comment on above: Performed By: #### 2 636683 #### [facility] [address] [place] [address] Lymphocytes (Bld) [#/Vol] 3.4 E9/L Normal 1.0-4.0 [facility] Comment on above: Performed By: #### 2 [id number] #### [facility] [address] [place] [address] Lymphocytes/100 WBC (Bld) 52.2 % High 14.0-50.0 [facility] Comment on above: Performed By: #### 2 449144 #### [facility] [address] [place] [address] MCH (RBC) [Entitic mass] 28.7 pg Normal 27.0-34.0 [facility] Comment on above: Performed By: #### 2 [id number] #### [facility] [address] [place] [address] MCHC (RBC) [Mass/Vol] 34.3 g/dL Normal 31.4-36.0 [facility] Comment on above: Performed By: #### 2 [id number] #### [facility] [address] [place] [address] MCV (RBC) [Entitic vol] 83.5 fL Normal 80.0-100.0 [facility] Comment on above: Performed By: #### 2 [id number] #### [facility] [address] [place] [address] Monocytes (Bld) [#/Vol] 0.6 E9/L Normal 0.2-1.0 [facility] Comment on above: Performed By: #### 2 [id number] #### [facility] [address] [place] [address] Neutrophils (Bld) [#/Vol] 2.3 E9/L Normal 2.0-7.5 [facility] Comment on above: Performed By: #### 2 594171 #### [facility] [address] [place] [address] Neutrophils/100 WBC (Bld) 35.5 % Low 36.0-75.0 [facility] Comment on above: Performed By: #### 2 936486 #### [facility] [address] [place] [address] Platelet 404.0 E9/L Normal 150.0-500. 0 [facility] Comment on above: Performed By: #### 2 [id number] #### [facility] [address] [place] [address] Platelet mean volume (Bld) [Entitic vol] 7.4 fL Normal 6.4-10.8 [facility] Comment on above: Performed By: #### 2 [id number] #### [facility] [address] [place] [address] RBC (Bld) [#/Vol] 4.2 E12/L Low 4.3-5.9 [facility] Comment on above: Performed By: #### 2 689325 #### [facility] [address] [place] [address] WBC corrected for nucl RBC Auto (Bld) [#/Vol] 6.4 E9/L Normal 4.0-11.0 [facility] Comment on above: Performed By: #### 2 [id number] #### [facility] [address] [place] [address] CHEMISTRYOrdered By: SYSTEM SYSTEM on 03-14-2024 Amphetamines [...] 03-14-2024 Albumin [Mass/Vol] 3.5 g/dL Normal 3.3-5.0 [facility] Comment on above: Performed By: #### 2 [id number] #### [facility] [address] [place] [address] Albumin/Globulin (S) [Mass conc ratio] 1.2 Normal 1.1-2.2 [facility] Comment on above: Performed By: #### 2 [id number] #### [facility] [address] [place] [address] ALP [Catalytic activity/Vol] 37 Int._Unit/L Normal 21-98 [facility] Comment on above: Performed By: #### 2 [id number] #### [facility] [address] [place] [address] ALT No additional P-5'-P [Catalytic activity/Vol] 19 Int._Unit/L Normal 6-46 [facility] Comment on above: Performed By: #### 2 [id number] #### [facility] [address] [place] [address] Anion gap [Moles/Vol] 13 mmol/L Normal 6-16 [facility] Comment on above: Performed By: #### 2 [id number] #### [facility] [address] [place] [address] AST [Catalytic activity/Vol] 18 Int._Unit/L Normal 5-43 [facility] Comment on above: Performed By: #### 2 [id number] #### [facility] [address] [place] [address] Bilirubin [Mass/Vol] 0.2 mg/dL Normal 0.0-1.1 [facility] Comment on above: Performed By: #### 2 144909 #### [facility] [address] [place] [address] Calcium [Mass/Vol] 8.5 mg/dL Low 8.9-11.1 [facility] Comment on above: Performed By: #### 2 [id number] #### [facility] [address] [place] [address] Chloride [Moles/Vol] 104 mmol/L Normal 101-111 [facility] Comment on above: Performed By: #### 2 508382 #### [facility] [address] [place] [address] CO2 [Moles/Vol] 25 mmol/L Normal 21-31 [facility] Comment on above: Performed By: #### 2 [id number] #### [facility] [address] [place] [address] Creatinine [Mass/Vol] 0.8 mg/dL Normal 0.5-1.3 [facility] Comment on above: Performed By: #### 2 600405 #### [facility] [address] [place] [address] Globulin (S) [Mass/Vol] 3.0 g/dL Normal 1.4-4.0 [facility] Comment on above: Performed By: #### 2 [id number] #### [facility] [address] [place] [address] Glucose [Mass/Vol] 86 mg/dL Normal 55-199 [facility] Comment on above: Performed By: #### 2 [id number] #### [facility] [address] [place] [address] Potassium [Moles/Vol] 3.7 mmol/L Normal 3.5-5.3 [facility] Comment on above: Performed By: #### 2 596541 #### [facility] [address] [place] [address] Protein [Mass/Vol] 6.5 g/dL Normal 6.0-7.8 [facility] Comment on above: Performed By: #### 2 146698 #### [facility] [address] [place] [address] Sodium [Moles/Vol] 138 mmol/L Normal 135-145 [facility] Comment on above: Performed By: #### 2 054348 #### [facility] [address] [place] [address] Urea nitrogen [Mass/Vol] 8 mg/dL Normal 5-21 [facility] Comment on above: Performed By: #### 2 [id number] #### [facility] [address] [place] [address] Urea nitrogen/Creatinine [Mass ratio] 10 No Units Normal 10-20 [facility] Comment on above: Performed By: #### 2 [id number] #### [facility] [address] [place] [address] Ethanolon 03-14-2024 Ethanol Lvl <10 Normal <=11 [facility] Comment on above: Performed By: #### 2 949177 #### [facility] [address] [place] [address] HEMATOLOGYOrdered By: SYSTEM SYSTEM on 03-14-2024 Basophils/100 [...] Cx Nom (U) No growth to date [facility] SEROLOGYOrdered By: Debby Cleveland on 03-14-2024 HCG.beta subunit (U) [Moles/Vol] Negative Normal [facility] Man Sero Salicylateon 03-14-2024 Salicylate Lvl <2 Low 6-29 [facility] Comment on above: Performed By: #### 2 [id number] #### [facility] [address] [place] [address] U BetaHcg Qualon 03-14-2024 HCG.beta subunit (U) [Moles/Vol] Negative Normal [facility] Comment on above: Performed By: #### 2 [id number] #### [facility] [address] [place] [address] U Drug Screenon 03-14-2024 Amphetamines Screen method >1000 ng/mL Ql (U) Negative Normal NEGATIVE [facility] Comment on above: Result Comment: Nega tive Cutoff: <1000 ng/mL Performed By: #### 2 737222 #### [facility] [address] [place] [address] Barbiturates Screen Ql (U) Negative Normal NEGATIVE [facility] Comment on above: Result Comment: Nega tive Cutoff: <200 ng/mL Performed By: #### 2 [id number] #### [facility] [address] [place] [address] Benzodiazepines Ql (U) Negative Normal NEGATIVE [facility] Comment on above: Result Comment: Nega tive Cutoff: <200 ng/mL Performed By: #### 2 [id number] #### [facility] [address] [place] [address] Cannabinoids Screen Ql (U) Negative Normal NEGATIVE [facility] Comment on above: Result Comment: Nega tive Cutoff: <50 ng/mL Performed By: #### 2 [id number] #### [facility] [address] [place] [address] Cocaine Ql (U) Negative Normal NEGATIVE [facility] Comment on above: Result Comment: Nega tive Cutoff: <300 ng/mL Performed By: #### 2 [id number] #### [facility] [address] [place] [address] Opiates Screen Ql (U) Negative Normal NEGATIVE [facility] Comment on above: Result Comment: Nega tive Cutoff: <300 ng/mL Performed By: #### 2 [id number] #### [facility] [address] [place] [address] Phencyclidine Screen method >25 ng/mL Ql (U) Negative Normal NEGATIVE [facility] Comment on above: Result Comment: Nega tive Cutoff: <25 ng/mL These drug screen results are to be used for medical (i.e., treatment) purposes only. Unconfirmed drug screening results must not be used for non-medical purposes (e.g., employment testing, legal testing). Performed By: #### 2 [id number] #### [facility] [address] [place] [address] U Fentanyl Negative Normal NEGATIVE [facility] Comment on above: Result Comment: Nega tive Cutoff: <5 ng/mL These drug screen results are to be used for medical (i.e., treatment) purposes only. Unconfirmed drug screening results must not be used for non-medical purposes (e.g., employment testing, legal testing). Performed By: #### 2 [id number] #### [facility] [address] [place] [address] UA with Cult Rflxon 03-14-20 24 Bilirubin Ql (U) Negative Normal Negative [facility] Comment on above: Performed By: #### 4 [id number] #### [facility] [address] [place] [address] Clarity (U) Clear Normal Clear [facility] Comment on above: Performed By: #### 4 [id number] #### [facility] [address] [place] [address] Color (U) Light-Yellow Normal Yellow [facility] Comment on above: Result Comment: Micr oscopic readings are only performed on those samples that meet specific criteria set forth by [facility]. Performed By: #### 4 [id number] #### [facility] [address] [place] [address] Epithelial cells.squamous Auto (Urine sed) [#/Area] 5-8 Invalid Interpretation Code [facility] Comment on above: Performed By: #### 4 [id number] #### [facility] [facility] [address] [place] [address] Glucose Ql (U) Negative Normal Negative [facility] Comment on above: Performed By: #### 4 [id number] #### [facility] [address] [place] [address] Hemoglobin Auto test strip (U) [Mass/Vol] Negative Normal Negative [facility] Comment on above: Performed By: #### 4 [id number] #### [facility] [address] [place] [address] Hyaline casts LM Ql (Urine sed) 0-3 Normal 0-3 [facility] Comment on above: Performed By: #### 4 [id number] #### [facility] [address] [place] [address] Ketones Auto test strip Ql (U) 1+ mg/dL Abnormal Negative [facility] Comment on above: Performed By: #### 4 [id number] #### [facility] [address] [place] [address] Leukocyte esterase Auto test strip Ql (U) 75 Uzair/uL Abnormal Negative [facility] Comment on above: Performed By: #### 4 [id number] #### [facility] [address] [place] [address] Mucus Auto Ql (U) Negative Normal Negative [facility] Comment on above: Performed By: #### 4 [id number] #### [facility] [address] [place] [address] Nitrite Auto test strip Ql (U) Negative Normal Negative [facility] Comment on above: Performed By: #### 4 [id number] #### [facility] [address] [place] [address] pH (U) 6.0 [pH] Invalid Interpretation Code 5.0-9.0 [facility] Comment on above: Performed By: #### 4 [id number] #### [facility] [address] [place] [address] Protein Ql (U) Trace Abnormal Negative [facility] Comment on above: Performed By: #### 4 [id number] #### [facility] [address] [place] [address] RBC Ql (U) 0-3 Normal 0-3 [facility] Comment on above: Performed By: #### 4 [id number] #### [facility] [address] [place] [address] Specific gravity (U) [Rel density] 1.036 Invalid Interpretation Code 1.005-1.03 0 [facility] Comment on above: Performed By: #### 4 [id number] #### [facility] [address] [place] [address] Urobilinogen (U) [Mass/Vol] Negative Normal Negative [facility] Comment on above: Performed By: #### 4 [id number] #### [facility] [address] [place] [address] WBC Auto (Urine sed) [#/Area] 0-5 Normal 0-5 [facility] Comment on above: Performed By: #### 4 [id number] #### [facility] [address] [place] [address] Type of Urine collection method Clean Catch Normal [facility] Comment on above: Performed By: #### 4 [id number] #### [facility] [address] [place] [address] URINALYSISOrdered By: Lady Cleveland on 03-14-2024 Bilirubin Ql (U) Negative Normal Negativemg /dL [facility] UA Auto SS Clarity (U) Clear (03/14/24 10:22 PM) Normal Clear [facility] UA Auto SS Color (U) Light-Yellow 3 (03/14/24 10:22 PM) Normal Yellow [facility] UA Auto SS Comment on above: Interpretive Data: M icroscopic readings are only performed on those samples that meet specific criteria set forth by [facility]. Epithelial cells.squamous Auto (Urine sed) [...] Desc Clean Catch (03/14/24 10:22 PM) Normal [facility] UA Auto SS Work Phone: eGFRon 03-14-2024 eGFR 109 mL/min/1.73 m2 Normal >=59 [facility] Comment on above: Order Comment: Order added by Discern Expert. Performed By: #### 1 [id number] #### [facility] [address] [place] [address] CT Abdomen w/ Contraston CT Abdomen w/ [...] Oral contrast amount in ml's: 900 Normal [facility] CHEMISTRYOrdered By: SYSTEM SYSTEM on 03-03-2024 [...] [Mass fraction] 5.3 % Normal <=5.9% [facility] ChemAutoSS Glu Fastingon 03-03-2024 Glucose [Mass/Vol] 91 mg/dL Normal 55-99 [facility] Comment on above: Performed By: #### 2 [id number] #### [facility] [address] [place] [address] [id number] 03-03-2024 HbA1c (Bld) [Mass fraction] 5.3 % Normal <=5.9 [facility] Comment on above: Performed By: #### 7 [id number] #### [facility] [address] [place] [address] Lipid Panelon 03-03-2024 Cholesterol [Mass/Vol] 225 mg/dL High 120-200 Fi [facility] Comment on above: Performed By: #### 2 [id number] #### [facility] [address] [place] [address] Cholesterol in HDL [Mass/Vol] 53 mg/dL Invalid Interpretation Code [facility] Comment on above: Result Comment: '>= 60 LOW RISK' '<= 40 HIGH RISK' Performed By: #### 2 [id number] #### [facility] [address] [place] [address] Cholesterol in LDL [Mass/Vol] 165 mg/dL High <=129 [facility] Comment on above: Performed By: #### 2 [id number] #### [facility] [address] [place] [address] Cholesterol in VLDL [Mass/Vol] 35 mg/dL Normal 7-40 [facility] Comment on above: Performed By: #### 2 [id number] #### [facility] [address] [place] [address] Triglyceride [Mass/Vol] 173 mg/dL High <=149 F [facility] Comment on above: Performed By: #### 2 [id number] #### [facility] [address] [place] [address] Vitamin D 25 Hydroxyon 03-03 25-hydroxyvitamin D3 [Mass/Vol] 18.5 ng/mL Low 30.0-100.0 [facility] Comment on above: Performed By: #### 5 [id number] #### [facility] [address] [place] [address] US Gallbladderon 02-17-2024 US Gallbladder Exam Date/Time: [...] Devine Transcribed by: GARTH Technologist: LI [facility] General Surgery Office/Clini c Noteon 02-09-2024 General Surgery Office/Clinic Note General Surgery Office/Clinic Note Chief Complaint [employer] Right sided pain HPI Staff [employer] Rose Mary is a 18 y.o. female here for surgical consult Dr. Hernandez referring Patient has a hx of pancreatitis and family hx of pancreatitis. Last flare up CT abd/pel done 01/13/2024 She is having right sided pain History of Present Illness Consent: The patient or their guardian verbally consented to allow [employer] to record this visit. Rose Mary Schneider [...] with voice recognition artificial intelligence software, specifically [employer], [employer] and or [employer]. Substitutions may have occurred due to the inherent limitations of voice recognition and artificial intelligence software. ATTESTATION: Documentation services were performed after patient or guardian consented to allow [employer] to record this visit. CORINNE senior accounts payable specialist and provider reviewed before signing. CORINNE: [...] tab(s), Oral, Daily FLUoxetine 40 mg Cap June 08/04 (more content not included)... Normal [facility] Comment on above: Result Comment: Elec [...] (APAP/butalbital/caffeine 325 mg-50 mg-40 mg Tab) acetaminophen-hydrocodone ([place] 325 mg-5 mg oral tablet) cetirizine (cetirizine [...] Reason: Pancreatitis, No, No, Acute pancreatitis Normal [facility] Gastroenterology Office/Clin ic Noteon 01-22-2024 Gastroenterology Office/Clinic Note Chief Complaint follow up to er, abdominal pain, pancreatitis HPI Staff This is a 18 year old female who presents today for a follow up from [facility] ER on 01/12/2024 and 01/13/2024 abdominal pain, generalized abd pain [facility] ED: 01/13/2024 Chief Complaint seen here yesterday told she was just shy of pancreatitis. states abdominal pain worse. tramadol for pain, ld 3hrs [employer]. denies n/v History of Present Illness Patient [...] currently on control. Discharge Prescription List Prescriptions [place]ia 325 mg-5 mg oral tablet, 1 tab(s), Oral, q6hr, PRN Pepcid AC 10 mg oral tablet, 10 mg= 1 tab(s), Oral, BID, PRN [facility] ED: 01/12/2024 Chief Complaint abd [...] 84.7 fL (01/13/24) Chloride: 105 mmol/L (01/13/24) [place] Absolute: 0.5 E9/L (01/13/24) CO2: 27 mmol/L (01/13/24) [place] Auto: 7.4 % (01/13/24) Creatinine: 0.8 mg/dL [...] soft, nontender (more content not included)... Normal [facility] Comment on above: Result Comment: Elec [...] against CT imaging as it will not pack changer. Patient will be sent home with [...] Nausea/Vomiting, # 12 tab(s), Refills(s) 0, Pharmacy: [facility]/pharmacy #[id number], 165.1, cm, 01/12/24 15:00:00 EDT, Height/Length Dosing, 117.7, kg, 01/12/24 15:00:00 EDT, Weight Dosing 3. Elevated lipase (R74.8: Abnormal levels of other serum enzymes) Ordered: tram (more content not included)... Normal [facility] Comment on above: Result Comment: Elec tronically Signed By: Liss Schroeder PA-C\.br\Date and Time Signed: 01/12/24 17:06 EDT\.br\Electronically Co-Signed By: Radha Whipple DO\.hemant\Date and Time Co-Signed: 01/15/24 07:[address] [...] 300 Contrast amount in ml's: 100 Normal [facility] ED Note-Physicianon 01-14-20 ED Note-Physician Basic Information Time Seen: Ton MELÉNDEZ, Mirella AriLaurita 01/13/2024 18:36 Chief Complaint seen here yesterday told she was just shy of pancreatitis. states abdominal pain worse. tramadol for pain, ld 3hrs [employer]. denies n/v History of Present Illness Patient [...] processes. The patient is being discharged with [place]ia and Pepcid for pain management. Patient states [...] Pain, # 30 tab(s), Refills(s) 0, Pharmacy: [facility]/pharmacy #[id number], 165.1, cm, 01/13/24 18:35:00 [...] Discharge Disposition home Discharge Prescription List Prescriptions [place] 325 mg-5 mg oral tablet, 1 tab(s), Oral, q6hr, PRN Pepcid AC 10 mg oral tablet, 10 mg= 1 tab(s), Oral, BID, PRN Follow- (more content not included)... Normal [facility] Comment on above: Result Comment: Elec tronically Signed By: Mirella Camilo PA-C\.br\Date and Time Signed: 01/13/24 21:12 EDT\.br\Electronically Co-Signed By: Mirella Camilo PA-C.br\Date and Time Co-Signed: 01/14/24 00:04 EDT\.br\Electronically Co-Signed By: Migue Farrell M.D.\.br\Date and Time Co-Signed: 01/14/24 07:02 EDT BMPon 01-13-2024 Anion gap [Moles/Vol] 9 mmol/L Normal 6-16 [facility] Comment on above: Performed By: #### 2 [id number] #### [facility] [address] [place] [address] Calcium [Mass/Vol] 8.6 mg/dL Low 8.9-11.1 [facility] Comment on above: Performed By: #### 2 [id number] #### [facility] [address] [place] [address] Chloride [Moles/Vol] 105 mmol/L Normal 101-111 [facility] Comment on above: Performed By: #### 2 [id number] #### [facility] [address] [place] [address] CO2 [Moles/Vol] 27 mmol/L Normal 21-31 [facility] Comment on above: Performed By: #### 2 [id number] #### [facility] [address] [place] [address] Creatinine [Mass/Vol] 0.8 mg/dL Normal 0.5-1.3 [facility] Comment on above: Performed By: #### 2 [id number] #### [facility] [address] [place] [address] Glucose [Mass/Vol] 96 mg/dL Normal 55-199 [facility] Comment on above: Performed By: #### 2 [id number] #### [facility] [address] [place] [address] Potassium [Moles/Vol] 3.6 mmol/L Normal 3.5-5.3 [facility] Comment on above: Performed By: #### 2 [id number] #### [facility] [address] [place] [address] Sodium [Moles/Vol] 137 mmol/L Normal 135-145 [facility] Comment on above: Performed By: #### 2 [id number] #### [facility] [address] [place] [address] Urea nitrogen [Mass/Vol] 9 mg/dL Normal 5-21 [facility] Comment on above: Performed By: #### 2 [id number] #### [facility] [address] [place] [address] Urea nitrogen/Creatinine [Mass ratio] 11 No Units Normal 10-20 [facility] Comment on above: Performed By: #### 2 [id number] #### [facility] [address] [place] [address] CBC w/ Auto Diffon 4 Basophils/100 WBC (Bld) 0.6 % Normal 0.0-2.0 [facility] Comment on above: Performed By: #### 2 [id number] #### [facility] [address] [place] [address] Basophils/Leukocytes Auto (Bld) [Pure # fraction] 0.0 E9/L Normal 0.0-0.2 [facility] Comment on above: Performed By: #### 2 [id number] #### [facility] [address] [place] [address] Eosinophils (Bld) [#/Vol] 0.2 E9/L Normal 0.0-0.5 [facility] Comment on above: Performed By: #### 2 [id number] #### [facility] [address] [place] [address] Eosinophils/100 WBC (Bld) 2.6 % Normal 0.0-8.0 [facility] Comment on above: Performed By: #### 2 [id number] #### [facility] [address] [place] [address] Erythrocyte distribution width (RBC) [Ratio] 13.8 % Normal 10.9-14.2 [facility] Comment on above: Performed By: #### 2 [id number] #### [facility] [address] [place] [address] Hematocrit (Bld) [Volume fraction] 35.6 % Normal 34.0-46.0 [facility] Comment on above: Performed By: #### 2 [id number] #### [facility] [address] [place] [address] Hemoglobin (Bld) [Mass/Vol] 11.8 g/dL Low 12.0-16.0 [facility] Comment on above: Performed By: #### 2 [id number] #### [facility] [address] [place] [address] Lymphocytes (Bld) [#/Vol] 2.9 E9/L Normal 1.0-4.0 [facility] Comment on above: Performed By: #### 2 [id number] #### [facility] [address] [place] [address] Lymphocytes/100 WBC (Bld) 40.4 % Normal 14.0-50.0 [facility] Comment on above: Performed By: #### 2 [id number] #### [facility] [address] [place] [address] MCH (RBC) [Entitic mass] 28.0 pg Normal 27.0-34.0 [facility] Comment on above: Performed By: #### 2 [id number] #### [facility] [address] [place] [address] MCHC (RBC) [Mass/Vol] 33.1 g/dL Normal 31.4-36.0 [facility] Comment on above: Performed By: #### 2 [id number] #### [facility] [address] [place] [address] MCV (RBC) [Entitic vol] 84.7 fL Normal 80.0-100.0 F [facility] Comment on above: Performed By: #### 2 [id number] #### [facility] [address] [place] [address] Monocytes (Bld) [#/Vol] 0.5 E9/L Normal 0.2-1.0 [facility] Comment on above: Performed By: #### 2 [id number] #### [facility] [address] [place] [address] Neutrophils (Bld) [#/Vol] 3.5 E9/L Normal 2.0-7.5 [facility] Comment on above: Performed By: #### 2 106109 #### [facility] [address] [place] [address] Neutrophils/100 WBC (Bld) 49.0 % Normal 36.0-75.0 [facility] Comment on above: Performed By: #### 2 [id number] #### [facility] [address] [place] [address] Platelet mean volume (Bld) [Entitic vol] 8.1 fL Normal 6.4-10.8 [facility] Comment on above: Performed By: #### 2 [id number] #### [facility] [address] [place] [address] Platelets (Bld) [#/Vol] 394.0 E9/L Normal 150. 0-500. 0 [facility] Comment on above: Performed By: #### 2 [id number] #### [facility] [address] [place] [address] RBC (Bld) [#/Vol] 4.2 E12/L Low 4.3-5.9 [facility] Comment on above: Performed By: #### 2 [id number] #### [facility] [address] [place] [address] WBC corrected for nucl RBC Auto (Bld) [#/Vol] 7.1 E9/L Normal 4.0-11.0 [facility] Comment on above: Performed By: #### 2 [id number] #### [facility] [address] [place] [address] CHEMISTRYOrdered By: SYSTEM SYSTEM on 01-13-2024 Albumin [...] Consent for Treatmenton 01-01 Consent for Treatment [id number] Normal [facility] Discharge Instructionson Discharge Instructions [id number] Normal [facility] ED Clinical Summaryon 2023 ED Clinical Summary (Inserted Image. Nida ble to display) [place] [id number] ED Clinical Summary Person Information Name: ROSE MARY SCHNEIDER/Maria Luisa Age: 18 Years : 2005 Sex: Female Language: Niuean PCP: Fredi Ellington MD Marital Status: Single Phone: [phone] Visit Id: Visit Reason: Abdominal pain; AB [...] 01/13/2024 21:12:34 01/13/2024 21:12:34 01/13/2024 21:12:34 ADDRESS: [address] [place] [id number] PHYS DOC NOTES: MEDICAL INFORMATION: Prescriptions Given: New Medications [facility]/pharmacy #[id number], [address] [place] [id number], [phone] acetaminophen-hydrocodone ([place] 325 mg-5 mg oral tablet) 1 Tablets [...] 0. PATIENT EDUCATION INFORMATION: Instructions: Acute Pancreatitis, Bdli-oo-Jopj Follow up: With: Address: When: Zenno Hernandez [address] [place] [address], [address] [place] [phone] [employer] (1) In 3 days 01/16/2024 Comments: Call to schedule an appointment with the director of admissions for further management of care With: Address: When: Fredi Rakel [address] [facility], [place] [address] [employer] (1) In 3 days DIAGNOSIS: Acute pancreatitis; Mild nausea Normal [facility] ED Patient Education Noteon 01-13-2024 ED [...] these instructions at home: Medicines ? Take nhwf-bws-qxwcdjz and prescription medicines only as told by [...] provider. Document Revised: 06/10/2022 Document Reviewed: 06/10/2022 [employer] Patient Education ? 2022 Androcial. [facility] ED Patient Summaryon 024 ED Patient Summary (Inserted Image. Nida ble to display) [place] [id number] Patient Discharge Instructions Person Information Name: ROSE MARY SCHNEIDER Age: 18 Years Arrival Date: 01/13/2024 18:21:08 Discharge Diagnosis: Acute pancreatitis; Mild nausea Primary Care Physician: Fredi Ellington MD Provider Information Primary Provider: Ko Draper DO Advanced [facility] Former:Mirella Camilo PA-C The exam and treatment you received in the Emergency Department were for an urgent problem and are not intended as complete care. It is important that you follow up with a doctor, nurse practitioner, or physician?s assistant men's soccer coach for ongoing care. If your symptoms become [...] Follow-up Instructions: With: Address: When: Zenon Hernandez [address] [place] [address] [address] [place] [phone] [employer] (1) In 3 days 01/16/2024 Comments: Call to schedule an appointment with the director of admissions for further management of care With: Address: When: Fredi Ellington [address] [facility] [place] [address] [employer] (1) In 3 days In the event that this physician does not participate in your insurance network, please consult with your insurance company to find a nearby participating provider. Patient Education Materials: Acute Pancreatitis, Xuhf-cu-Yhkl A MESSAGE TO ALL PATIENTS REGARDING OPIOIDS PRESCRIPTION OPIOIDS: WHAT YOU NEED TO KNOW Prescription opioids can be used to help relieve shnnashp-mw-lvdpyu pain and are often prescribed following a [...] and Drug Administration (www.fda.gov/Drugs/Resour cesForYou). ? Visit www.cd (more content not included)... Normal [facility] HEMATOLOGYOrdered By: SYSTEM SYSTEM on 01-13-2024 [...] 01-13-2024 Albumin [Mass/Vol] 3.4 g/dL Normal 3.3-5.0 [facility] Comment on above: Performed By: #### 2 [id number] #### [facility] [address] [place] [address] Albumin/Globulin (S) [Mass conc ratio] 1.0 Low 1.1-2.2 [facility] Comment on above: Performed By: #### 2 [id number] #### [facility] [address] [place] [address] ALP [Catalytic activity/Vol] 45 Int._Unit/L Normal 21-98 [facility] Comment on above: Performed By: #### 2 [id number] #### [facility] [address] [place] [address] ALT No additional P-5'-P [Catalytic activity/Vol] 11 Int._Unit/L Normal 6-46 [facility] Comment on above: Performed By: #### 2 [id number] #### [facility] [address] [place] [address] AST [Catalytic activity/Vol] 12 Int._Unit/L Normal 5-43 [facility] Comment on above: Performed By: #### 2 [id number] #### [facility] [address] [place] [address] Bilirubin [Mass/Vol] 0.3 mg/dL Normal 0.0-1.1 [facility] Comment on above: Performed By: #### 2 [id number] #### [facility] [address] [place] [address] Bilirubin.direct [Mass/Vol] 0.0 mg/dL Normal 0.0-0.4 [facility] Comment on above: Performed By: #### 2 [id number] #### [facility] [address] [place] [address] Bilirubin.indirect [Mass or moles/Vol] 0.3 mg/dL Normal 0.1-0.9 [facility] Comment on above: Performed By: #### 2 380151 #### [facility] [address] [place] [address] Globulin (S) [Mass/Vol] 3.3 g/dL Normal 1.4-4.0 [facility] Comment on above: Performed By: #### 2 [id number] #### [facility] [address] [place] [address] Protein [Mass/Vol] 6.7 g/dL Normal 6.0-7.8 [facility] Comment on above: Performed By: #### 2 [id number] #### [facility] [address] [place] [address] Lipase Levelon 01-13-2024 Lipase [Catalytic activity/Vol] 144 U/L High 13-58 [facility] Comment on above: Performed By: #### 2 [id number] #### [facility] [address] [place] [address] RAD - Preliminary Cat Scan R eporton 01-13-2024 RAD - Preliminary Cat Scan Report [id number] Normal [facility] UA with Cult Rflxon 01-13-20 24 Bilirubin Ql (U) Negative Normal Negative [facility] Comment on above: Performed By: #### 4 [id number] ####[facility] [address] [place] [address] Clarity (U) Clear Normal Clear [facility] Comment on above: Performed By: #### 4 [id number] ####[facility] [address] [place] [address] Color (U) Colorless Abnormal Yellow [facility] Comment on above: Result Comment: Micr oscopic readings are only performed on those samples that meet specific criteria set forth by [facility]. Performed By: #### 4 [id number] ####[facility] [address]sc[address] [place] [address] Epithelial cells.squamous Auto (Urine sed) [#/Area] 0-2 Invalid Interpretation Code [facility] Comment on above: Performed By: #### 4 [id number] ####[facility] [address] [place] [address] Glucose Ql (U) Negative Normal Negative [facility] Comment on above: Performed By: #### 4 [id number] ####[facility] [address] [place] [address] Hemoglobin Auto test strip (U) [Mass/Vol] 1+ mg/dL Abnormal Negative [facility] Comment on above: Performed By: #### 4 [id number] ####[facility] [address] [facility] [place] [address] Ketones Auto test strip Ql (U) Negative Normal Negative [facility] Comment on above: Performed By: #### 4 [id number] ####[facility] In[address] [place] [address] Leukocyte esterase Auto test strip Ql (U) Negative Normal Negative [facility] Comment on above: Performed By: #### 4 [id number] ####[facility] [address] [place] [address] Mucus Auto Ql (U) Negative Normal Negative [facility] Comment on above: Performed By: #### 4 [id number] ####[facility] [address] [facility] [place] [address] Nitrite Auto test strip Ql (U) Negative Normal Negative [facility] Comment on above: Performed By: #### 4 [id number] ####[facility] [address] [place] [address] pH (U) 6.5 [pH] Invalid Interpretation Code 5.0-9.0 [facility] Comment on above: Performed By: #### 4 [id number] ####[address] [address] Protein Ql (U) Negative Normal Negative [facility] Comment on above: Performed By: #### 4 [id number] ####[address] [address] RBC Ql (U) 0-3 Normal 0-3 [facility] Comment on above: Performed By: #### 4 [id number] ####[place] [id number] Specific gravity (U) [Rel density] 1.024 Invalid Interpretation Code 1.005-1.03 0 [facility] Comment on above: Performed By: #### 4 [id number] ####[place] [id number] Urobilinogen (U) [Mass/Vol] Negative Normal Negative [facility] Comment on above: Performed By: #### 4 [id number] ####[place] [id number] WBC Auto (Urine sed) [#/Area] 0-5 Normal 0-5 [facility] Comment on above: Performed By: #### 4 [id number] ####[place] [id number] Type of Urine collection method Clean Catch Normal [facility] Comment on above: Performed By: #### 4 [id number] ####[address] [address] URINALYSISOrdered By: SYSTEM SYSTEM on 01-13-2024 Bilirubin Ql (U) Negative Normal Negativemg /dL [facility] UA Auto SS Clarity (U) Clear (01/13/24 7:41 PM) Normal Clear [facility] UA Auto SS Color (U) Colorless 1 *ABN* (01/13/24 7:41 PM) Invalid Interpretation Code Yellow [facility] UA Auto SS Comment on above: Interpretive Data: M icroscopic readings are only performed on those samples that meet specific criteria set forth by [facility]. Epithelial cells.squamous Auto (Urine sed) [...] Ql (U) 0-3 graded/HPF Normal 0-3graded/ HPF [facility] UA Auto SS Specific gravity (U) [Rel density] 1.024 *NA* (01/13/24 7:41 PM) Invalid Interpretation Code 1.005 - 1.030 [facility] UA Auto SS Urobilinogen (U) [Mass/Vol] Negative Normal Negativemg /dL [facility] UA Auto SS WBC Auto (Urine sed) [#/Area] 0-5 graded/HPF Normal 0-5graded/ HPF [facility] UA Auto SS URINALYSISOrdered By: Mirella Camilo on 01-13-2024 UA Spec Desc Clean Catch (01/13/24 7:41 PM) Normal [facility] UA Auto SS Work Phone: eGFRon 01-13-2024 eGFR 109 mL/min/1.73 m2 Normal >=59 [facility] Comment on above: Order Comment: Order added by Discern Expert. Performed By: #### 1 [id number] #### [facility] [address] [place] [address] CBC w/ Auto Diffon 4 Basophils/100 WBC (Bld) 0.4 % Normal 0.0-2.0 [facility] Comment on above: Performed By: #### 2 [id number] #### [facility] [address] [place] [address] Basophils/Leukocytes Auto (Bld) [Pure # fraction] 0.0 E9/L Normal 0.0-0.2 [facility] Comment on above: Performed By: #### 2 [id number] #### [facility] [address] [place] [address] Eosinophils (Bld) [#/Vol] 0.2 E9/L Normal 0.0-0.5 [facility] Comment on above: Performed By: #### 2 [id number] #### [facility] [address] [place] [address] Eosinophils/100 WBC (Bld) 2.3 % Normal 0.0-8.0 [facility] Comment on above: Performed By: #### 2 [id number] #### [facility] [address] [place] [address] Erythrocyte distribution width (RBC) [Ratio] 13.9 % Normal 10.9-14.2 [facility] Comment on above: Performed By: #### 2 [id number] #### [facility] [address] [place] [address] Hematocrit (Bld) [Volume fraction] 37.3 % Normal 34.0-46.0 [facility] Comment on above: Performed By: #### 2 [id number] #### [facility] [address] [place] [address] Hemoglobin (Bld) [Mass/Vol] 12.7 g/dL Normal 12.0-16.0 [facility] Comment on above: Performed By: #### 2 [id number] #### [facility] [address] [place] [address] Lymphocytes (Bld) [#/Vol] 2.3 E9/L Normal 1.0-4.0 [facility] Comment on above: Performed By: #### 2 [id number] #### [facility] [address] [place] [address] Lymphocytes/100 WBC (Bld) 33.8 % Normal 14.0-50.0 [facility] Comment on above: Performed By: #### 2 [id number] #### [facility] [address] [place] [address] MCH (RBC) [Entitic mass] 28.5 pg Normal 27.0-34.0 [facility] Comment on above: Performed By: #### 2 [id number] #### [facility] [address] [place] [address] MCHC (RBC) [Mass/Vol] 34.0 g/dL Normal 31.4-36.0 [facility] Comment on above: Performed By: #### 2 [id number] #### [facility] [address] [place] [address] MCV (RBC) [Entitic vol] 83.9 fL Normal 80.0-100.0 [facility] Comment on above: Performed By: #### 2 [id number] #### [facility] [address] [place] [address] Monocytes (Bld) [#/Vol] 0.6 E9/L Normal 0.2-1.0 [facility] Comment on above: Performed By: #### 2 [id number] #### [facility] [address] [place] [address] Neutrophils (Bld) [#/Vol] 3.8 E9/L Normal 2.0-7.5 [facility] Comment on above: Performed By: #### 2 [id number] #### [facility] [address] [place] [address] Neutrophils/100 WBC (Bld) 55.0 % Normal 36.0-75.0 [facility] Comment on above: Performed By: #### 2 [id number] #### [facility] [address] [place] [address] Platelet 454.0 E9/L Normal 150.0-500. 0 [facility] Comment on above: Performed By: #### 2 [id number] #### [facility] [address] [place] [address] Platelet mean volume (Bld) [Entitic vol] 7.5 fL Normal 6.4-10.8 [facility] Comment on above: Performed By: #### 2 [id number] #### [facility] [address] [place] [address] RBC (Bld) [#/Vol] 4.4 E12/L Normal 4.3-5.9 [facility] Comment on above: Performed By: #### 2 [id number] #### [facility] [address] [place] [address] WBC corrected for nucl RBC Auto (Bld) [#/Vol] 6.9 E9/L Normal 4.0-11.0 [facility] Comment on above: Performed By: #### 2 [id number] #### [facility] [address] [place] [address] CHEMISTRYOrdered By: SYSTEM SYSTEM on 01-12-2024 Albumin [...] 01-12-2024 Albumin [Mass/Vol] 3.7 g/dL Normal 3.3-5.0 [facility] Comment on above: Performed By: #### 2 [id number] #### [facility] [address] [place] [address] Albumin/Globulin (S) [Mass conc ratio] 1.0 Low 1.1-2.2 [facility] Comment on above: Performed By: #### 2 [id number] #### [facility] [address] [place] [address] ALP [Catalytic activity/Vol] 49 Int._Unit/L Normal 21-98 [facility] Comment on above: Performed By: #### 2 [id number] #### [facility] [address] [place] [address] ALT No additional P-5'-P [Catalytic activity/Vol] 12 Int._Unit/L Normal 6-46 [facility] Comment on above: Performed By: #### 2 [id number] #### [facility] [address] [place] [address] Anion gap [Moles/Vol] 9 mmol/L Normal 6-16 [facility] Comment on above: Performed By: #### 2 [id number] #### [facility] [address] [place] [address] AST [Catalytic activity/Vol] 12 Int._Unit/L Normal 5-43 [facility] Comment on above: Performed By: #### 2 [id number] #### [facility] [address] [place] [address] Bilirubin [Mass/Vol] 0.3 mg/dL Normal 0.0-1.1 [facility] Comment on above: Performed By: #### 2 [id number] #### [facility] [address] [place] [address] Calcium [Mass/Vol] 9.2 mg/dL Normal 8.9-11.1 [facility] Comment on above: Performed By: #### 2 [id number] #### [facility] [address] [place] [address] Chloride [Moles/Vol] 105 mmol/L Normal 101-111 [facility] Comment on above: Performed By: #### 2 [id number] #### [facility] [address] [place] [address] CO2 [Moles/Vol] 27 mmol/L Normal 21-31 [facility] Comment on above: Performed By: #### 2 [id number] #### [facility] [address] [place] [address] Creatinine [Mass/Vol] 0.7 mg/dL Normal 0.5-1.3 [facility] Comment on above: Performed By: #### 2 [id number] #### [facility] [address] [place] [address] Globulin (S) [Mass/Vol] 3.7 g/dL Normal 1.4-4.0 [facility] Comment on above: Performed By: #### 2 [id number] #### [facility] [address] [place] [address] Glucose [Mass/Vol] 89 mg/dL Normal 55-199 [facility] Comment on above: Performed By: #### 2 084662 #### [facility] [address] [place] [address] Potassium [Moles/Vol] 3.7 mmol/L Normal 3.5-5.3 [facility] Comment on above: Performed By: #### 2 905303 #### [facility] [address] [place] [address] Protein [Mass/Vol] 7.4 g/dL Normal 6.0-7.8 [facility] Comment on above: Performed By: #### 2 881800 #### [facility] [address] [place] [address] Sodium [Moles/Vol] 137 mmol/L Normal 135-145 [facility] Comment on above: Performed By: #### 2 569286 #### [facility] [address] [place] [address] Urea nitrogen [Mass/Vol] 8 mg/dL Normal 5-21 [facility] Comment on above: Performed By: #### 2 [id number] #### [facility] [address] [place] [address] Urea nitrogen/Creatinine [Mass ratio] 11 No Units Normal 10-20 [facility] Comment on above: Performed By: #### 2 277396 #### [facility] [address] [place] [address] Consent for Treatmenton 01-01 Consent for Treatment [id number] Normal [facility] Discharge Instructionson Discharge Instructions [id number] Normal [facility] ED Clinical Summaryon 2023 ED Clinical Summary (Inserted Image. Nida ble to display) [address] [address] ED Clinical Summary Person Information Name: ROSE MARY SCHNEIDER/NewLester Age: 18 Years : 2005 Sex: Female Language: Niuean PCP: Fredi Ellington MD Marital Status: Single Phone: [phone] Visit Id: Visit Reason: Abdominal pain; ABDOMINAL [...] 01/12/2024 17:22:14 01/12/2024 17:22:14 01/12/2024 17:22:14 ADDRESS: [address] [place] [id number] PHYS DOC NOTES: MEDICAL INFORMATION: Prescriptions Given: New Medications [facility]/pharmacy #[id number], [address], [place] [id number], [phone] ondansetron (Zofran ODT 4 mg Tab-Dis) 1 [...] INFORMATION: Instructions: Full Liquid Diet; Nausea, Adult, Gsub-ii-Zcnm; Abdominal Pain, Adult, Ucvu-pm-Tdee Follow up: With: Address: When: Rakel MARCANO, [address] [address] In 3 days 01/15/2024 DIAGNOSIS: 1:Generalized abdominal pain; 2:Nausea; 3:Elevated lipase Normal [facility] ED Note-Nursingon 01-12-2024 ED Note-Nursing MARIE Morales at [facility] to discuss poc. Normal [facility] ED Patient Education Noteon 01-12-2024 ED [...] Water. Coffee and tea (caffeinated or decaffeinated). Bowlegs. Liquid nutritional supplements. Soft drinks. Nondairy milks, such as almond, coconut, rice, or soy milk. Sweets and desserts Custard. Pudding. Flavored gelatin. Smooth ice cream (without nuts or candy pieces). Sherbet. Frozen ice pops. Senegalese ice. Pudding pops. Seasonings and condiments Salt and pepper. Spices. Vinegar. Ketchup. Yellow mustard. Smooth sauces, such as Hollandaise, cheese sauce, or white sauce. Soy sauce. Syrup. Honey. Jelly (without fruit pieces). Other foods Bowlegs powder. Cream soups. Strained soups. The items [...] This infor (more content not included)... Normal [facility] ED Patient Education Note Gastroenterology Nausea, [...] ? Low-calorie sports drinks. ? Eat bland, uhmq-wo-vmeubn foods in small amounts as you are able, such as: ? Bananas. ? Applesauce. ? Rice. ? Low-fat (lean) meats. ? [place]. ? Crackers. ? Avoid drinking fluids that have a lot of sugar or caffeine in them. This includes energy drinks, sports drinks, and soda. ? Avoid alcohol. ? Avoid spicy or fatty foods. General instructions ? Take nrao-shi-edsield and prescription medicines only as told by [...] cannot use soap and water, use hand supervisor grounds. ? Make sure that everyone in your [...] drink what your doctor tells you. Take hptm-vgg-kwhspwc and prescription medicines only as told by [...] provider. Document Revised: 01/24/2022 Document Reviewed: 01/24/2022 [employer] Patient Education ? 2022 [employer] Abdominal Pain, Adult Many things can cause belly (abdominal) pain. Most times, belly pain is not dangerous. Many cases of belly pain can be watched and treated at home. Sometimes, though, belly pain is serious. Your doctor will try to find the cause of your belly pain. Follow these instructions at home: Medicines ? Take lary-wqd-eebjrbc and prescription medicines only as told by [...] doctor if: (more content not included)... Normal [facility] ED Patient Summaryon 024 ED Patient Summary (Inserted Image. Nida ble to display) [address] [address] Patient Discharge Instructions Person Information Name: ROSE MARY SCHNEIDER Age: 18 Years Arrival Date: 01/12/2024 14:42:50 Discharge Diagnosis: 1:Generalized abdominal pain; 2:Nausea; 3:Elevated lipase Primary Care Physician: Fredi Ellington MD Provider Information Primary Provider: Radha Whipple DO Advanced Hand Former:Liss Schroeder PA-C The exam and treatment you received in the Emergency Department were for an urgent problem and are not intended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 #### 2 693377 #### [facility] [address] [place] [address] Bilirubin.direct [Mass/Vol] mg/dL Normal 0.1-0.4 [facility] Comment on above: Performed By: #### 2 326370 #### [facility] [address] [place] [address] Bilirubin.indirect [Mass or moles/Vol] UTC Abnormal 0.1-0.9 [facility] Comment on above: Result Comment: Resu lt verified by Discern Rule. Performed result UTC (Unable to Calculate) was sent as an Alpha code due the inability to calculate a valid numeric value. Performed By: #### 2 483275, 5820370, 5212500, 84757192, 00537394 ####[facility] [address] [place] [address] Albumin [Mass/Vol] 3.0 g/dL Low 3.3-5.0 [facility] Comment on above: Performed By: #### 2 974556, 7449028, 2532443, 57047033, 93721259 ####[facility] [address] [place] [address] Albumin/Globulin (S) [Mass conc ratio] 0.7 Low 1.1-2.2 [facility] Comment on above: Performed By: #### 2 370090, 1807621, 8206198, 71301193, 27299339 ####[facility] [address] [place] [address] ALP [Catalytic activity/Vol] 42 Int._Unit/L Normal 21-98 [facility] Comment on above: Performed By: #### 2 876684, 3152272, 6235352, 71018599, 72918945 ####[address] [place] [address] ALT No additional P-5'-P [Catalytic activity/Vol] 12 Int._Unit/L Normal 6-46 [facility] Comment on above: Performed By: #### 2 562107, 8780188, 7417445, 55708768, 59731851 ####[address] [place] [address] AST [Catalytic activity/Vol] 13 Int._Unit/L Normal 5-43 [facility] Comment on above: Performed By: #### 2 113172, 6721357, 2409460, 34805019, 62498948 ####[facility] [address] [place] [address] Bilirubin [Mass/Vol] 0.4 mg/dL Normal 0.0-1.1 [facility] Comment on above: Performed By: #### 2 908281, 3367840, 2780118, 92409892, 30535445 ####[facility] [address] [place] [address] Globulin (S) [Mass/Vol] 4.2 g/dL High 1.4-4.0 [facility] Comment on above: Performed By: #### 2 801976, 6167735, 5786374, 24861028, 63560038 ####[facility] [address] [place] [address] Protein [Mass/Vol] 7.2 g/dL Normal 6.0-7.8 [facility] Comment on above: Performed By: #### 2 769050, 8917909, 6771418, 78158864, 64507186 ####[facility] [address] [place] [address] Bilirubin.direct [Mass/Vol] mg/dL Normal 0.1-0.4 [facility] Comment on above: Performed By: #### 2 693191, 3165549, 3294609, 48236628, 97299322 ####[facility] [address] [place] [address] Bilirubin.indirect [Mass or moles/Vol] UTC Abnormal 0.1-0.9 [facility] Comment on above: Result Comment: Resu lt verified by Discern Rule. Performed result UTC (Unable to Calculate) was sent as an Alpha code due the inability to calculate a valid numeric value. Performed By: #### 2 116520, 4900736 #### [facility] [address] [place] [address] Albumin [Mass/Vol] 2.9 g/dL Low 3.3-5.0 [facility] Comment on above: Performed By: #### 2 871409, 5091068 #### [facility] [address] [place] [address] Albumin/Globulin (S) [Mass conc ratio] 0.7 Low 1.1-2.2 [facility] Comment on above: Performed By: #### 2 772355, 6866278 #### [facility] [address] [place] [address] ALP [Catalytic activity/Vol] 40 Int._Unit/L Normal 21-98 [facility] Comment on above: Performed By: #### 2 748380, 4551903 #### [facility] [address] [place] [address] ALT No additional P-5'-P [Catalytic activity/Vol] 11 Int._Unit/L Normal 6-46 [facility] Comment on above: Performed By: #### 2 932974, 1650301 #### [facility] [address] [place] [address] AST [Catalytic activity/Vol] 16 Int._Unit/L Normal 5-43 [facility] Comment on above: Performed By: #### 2 232217, 4542220 #### [facility] [address] [place] [address] Bilirubin [Mass/Vol] 0.3 mg/dL Normal 0.0-1.1 [facility] Comment on above: Performed By: #### 2 496435, 1071021 #### [facility] [address] [place] [address] Globulin (S) [Mass/Vol] 4.0 g/dL Normal 1.4-4.0 F [facility] Comment on above: Performed By: #### 2 829262, 9985595 #### [facility] [address] [place] [address] Protein [Mass/Vol] 6.9 g/dL Normal 6.0-7.8 [facility] Comment on above: Performed By: #### 2 229678, 7202273 #### [facility] [address] [place] [address] Bilirubin.direct [Mass/Vol] mg/dL Normal 0.1-0.4 [facility] Comment on above: Performed By: #### 2 776548, 0243887 #### [facility] [address] [place] [address] Interdisciplinary Note - Binu e Manageron 03-08-2023 Interdisciplinary Note - Middleware Systems Architect CRM spoke with patient and mother in [...] has a sitter in the room. Normal [facility] Comment on above: Result Comment: Elec tronically Signed By: Don SHER, Antoinette\.br\Date and Time Signed: 03/08/23 12:53 EDT Monitor Recordon 03-08-2023 Monitor Record [id number]:1 27 Normal [facility] Monitor Record [id number]#[id number]:1 27 Normal [facility] Monitor Record [id number]#[id number]:1 27 Normal [facility] PT & PTTon 03-08-2023 aPTT Coag (PPP) [Time] 32.2 second(s) Normal 25.1-36.5 [facility] Comment on above: Result Comment: Para [...] same coagulation reagent and instrumentation as [facility]. Currently there are no coagulation studies available worldwide for children to 14 days, and no normal ranges. Heparin therapeutic range (represented by Anti-Factor Xa activity of 0.2 - 0.4 U/mL) corresponds to PTT of 56.6 - 109.0 sec. Performed By: #### 2 532977, 9784232, 9847926, 78719220, 21220134 ####[facility] [address] [place] [address] INR Coag (PPP) [Relative time] 1.1 {INR} Invalid Interpretation Code [facility] Comment on above: Result Comment: INR results are specifically intended to assess patients stabilized on long-term Anticoagulation therapy suggested INR?s ?Less Intensive Anticoagulation? 2.0 ? 3.0 Conventional Range 3.0 ? 4.5 Performed By: #### 2 616873, 5786080, 4108561, 91754553, 21010440 ####[facility] [address] [place] [address] PT Coag (PPP) [Time] 12.1 second(s) Normal 9.4-12.5 [facility] Comment on above: Result Comment: 15 [...] same coagulation reagent and instrumentation as [facility]. Currently there are no coagulation studies available worldwide for children to 14 days, and no normal ranges. Performed By: #### 2 193600, 7318320, 7324877, 97897887, 70565459 ####[facility] [address] [place] [address] Progress Note-Nurseon 2022 Progress Note-Nurse Patient assisted to [facility] and voids a small amount of clear yellow urine. Patient also ate a 6 inch sub and tolerated it well. She denies GI upset and tolerated it well. Observation continued and safety maintained. Normal [facility] Progress Note-Nurse Report taken and bed [...] Seizure pads intact and safety maintained. Normal [facility] Progress Note-Nurse 1340: This RN contac [...] will remain on regular nursing floor. Normal [facility] Progress Note-Physicianon Progress Note-Physician Assessment/Plan 17-year-old [...] overdose with Tylenol/diphenhydramine.? Secondary to suicide ideation/attempt. galley worker evaluation. Acetaminophen level ekta to 40 but trended down to undetectable. Treating with IVF Thursday. LFTs within normal limit. Repeat LFTs and PT/INR in AM. Ordered: Basic Metabolic Panel Comprehensive Metabolic Panel Consult to Form Coverer eGFR Extra Lav Tube Hepatic Function Panel PT [facility] Hospital Care/Day Moderate 35 Minutes 32081 2. Suicidal ideation (R45.851: Suicidal ideations) Supportive care. galley worker evaluation. Mental health evaluation in a.m. once medically stable. Ordered: Consult to Form Coverer [facility] Hospital Care/Day Moderate 35 Minutes 15184 3. Antihistamines overdose (T45.0X1A: Poisoning by antiallergic and antiemetic drugs, accidental (unintentional), initial encounter) Treated with charcoal. Respiratory status and circulation currently stable. Treated with IV fluid. Bladder scan?so far not retaining urine. Ordered: [facility] Hospital Care/Day Moderate 35 Minutes 73441 4. Hypokalemia (E87.6: Hypokalemia) Secondary to gastrointestinal loss and IV fluid. We will replace orally. Ordered: potassium chloride, 40 mEq = 2 tab(s), Tab-ER, Oral, BID for 2 dose(s), Stop date 03/09/23 8:59:00 EDT, Routine, Start date 03/08/23 9:00:00 EDT, 03/08/23 8:36:00 EDT Comprehensive Metabolic Panel [facility] Care/Day Moderate 35 Minutes 20768 5. Depression (F32.A: Depression, unspecified) On fluoxetine. Ordered: [facility] Care/Day Moderate 35 Minutes 10173 6. Seizure (R56.9: Unspecified convulsions) No reported [...] made to ensure accuracy. However inadvertent computerized pulp piler errors may be present. Jennifer Retana. Hospitalist. [...] -- charco (more content not included)... Normal [facility] Comment on above: Result Comment: Elec tronically Signed By: DEBBIE MARCANO, Jennifer\.br\Date and Time Signed: 03/08/23 08:38 EDT Reference Laboratory Testing Ordered By: Mick DomainUser on 03-08-2023 lamoTRIgine [Mass/Vol] microgram/mL Low 2.0-2 0.0mc g/mL [facility] SendOutsSS Comment on above: Result Comment: Dete ction Limit = 1.0 Performed at: [address] [id number] MD Jose Armando Feliz levETIRAcetam [Mass/Vol] 12.4 microgram/mL Invalid Interpretation Code 10.0-40.0m cg/mL [facility] SendOutsSS Comment on above: Result Comment: Perf ormed at: [address] [id number] MD Jose Armando Feliz eGFRon 03-08-2023 GFR/1.73 sq M.predicted among non-blacks MDRD (S/P/Bld) [Vol rate/Area] 109 mL/min/1.73 m2 Normal >=59 [facility] Comment on above: Order Comment: Order added by Discern Expert. Result Comment: Studio Grip marleny kidney disease could be indicated at eGFR's of less than 60 mL/min/1.73m2. Kidney failure is indicated at less than 15 mL/min/1.73m2. Performed By: #### 2 699928, 0248938, 1531699, 15654022, 99710354 ####[facility] [address] [place] [address] Acetamnphn Lvlon 03-07-2023 Acetaminophen [Mass/Vol] 40 microgram/mL Abnormal 15-30 [facility] Comment on above: Result Comment: Crit ical Result verified by repeat analysis\Critical Result S_ACTM:40.1 Called to ALLEN ZENG AT by SANIYA NEWBY And Read Back For Confirmation at: 03/07/2023 18:17:47 Performed By: #### 2 061998, 4122932 #### [facility] [address] [place] [address] Acetaminophen [Mass/Vol] 35 microgram/mL High 15-30 [facility] Comment on above: Performed By: #### 1 8880578, 1284620, 3517242, 3876944, 80364880, 0981346, 5563591, 8373582, 5429183 #### [facility] [address] [place] [address] Auto Diffon 03-07-2023 Basophils/100 WBC (Bld) 0.5 % Normal 0.0-2.0 [facility] Comment on above: Order Comment: Order Added by Discern Expert. Performed By: #### 1 5449716, 6393652, 0459449, 7795992, 70122213, 0265566, 0852448, 9271324, 2326445 ####[facility] [address] [place] [address] Basophils/Leukocytes Auto (Bld) [Pure # fraction] 0.0 E9/L Normal 0.0-0.2 [facility] Comment on above: Order Comment: Order Added by Discern Expert. Performed By: #### 1 1131191, 0063342, 3930100, 9540686, 02026787, 0208303, 9609455, 0154876, 9651998 ####[facility] [address] [place] [address] Eosinophils/100 WBC (Bld) 1.9 % Normal 0.0-8.0 [facility] Comment on above: Order Comment: Order Added by Discern Expert. Performed By: #### 1 4161442, 6255795, 1361143, 0387173, 65423564, 7884877, 8508917, 3418623, 3158947 ####[address] [place] [address] Eosinophils/Leukocytes Auto (Bld) [Pure # fraction] 0.1 E9/L Normal 0.0-0.5 [facility] Comment on above: Order Comment: Order Added by Discern Expert. Performed By: #### 1 1491681, 4874135, 7907871, 3229617, 61198819, 1475547, 7348235, 2666749, 7189514 ####[address] [address] Lymphocytes/100 WBC (Bld) 28.7 % Normal 14.0-50.0 [facility] Comment on above: Order Comment: Order Added by Discern Expert. Performed By: #### 1 9456283, 9841830, 6547350, 0973099, 84077269, 9098619, 9935038, 8878637, 1388277 ####[address] [address] Lymphocytes/Leukocytes Auto (Bld) [Pure # fraction] 2.0 E9/L Normal 1.0-4.0 [facility] Comment on above: Order Comment: Order Added by Discern Expert. Performed By: #### 1 7031498, 3574870, 0298975, 3341278, 63008439, 6629618, 9334014, 3423494, 5057346 ####[address] [address] Monocytes/100 WBC (Bld) 8.6 % Normal 4.0-14.0 [facility] Comment on above: Order Comment: Order Added by Discern Expert. Performed By: #### 1 3066761, 0413702, 7909894, 2217833, 10080410, 5254478, 2620777, 6883500, 5032850 ####[address] [place] [address] Monocytes/Leukocytes Auto (Bld) [Pure # fraction] 0.6 E9/L Normal 0.2-1.0 [facility] Comment on above: Order Comment: Order Added by Discern Expert. Performed By: #### 1 3503028, 4371626, 2942175, 1690612, 99787690, 1953766, 7299216, 7835367, 7765581 ####[facility] [address] [place] [address] Neutrophils/100 WBC (Bld) 60.3 % Normal 36.0-75.0 [facility] Comment on above: Order Comment: Order Added by Discern Expert. Performed By: #### 1 5643612, 0670240, 9007922, 4145332, 07062697, 2372875, 4098302, 2424290, 6913614 ####[address] [place] [address] Neutrophils/Leukocytes Auto (Bld) [Pure # fraction] 4.1 E9/L Normal 2.0-7.5 [facility] Comment on above: Order Comment: Order Added by Samantha Expert. Performed By: #### 1 1336513, 3036805, 1532933, 2127715, 95680003, 3792257, 0996276, 0389952, 0089309 ####[facility] [address] [place] [address] B hCG Qualon 03-07-2023 Beta hCG Ql Negative Normal [facility] Comment on above: Performed By: #### 1 8828835, 0489672, 8792938, 7600732, 69179392, 9444668, 9890259, 6006281, 9899815 ####[facility] [address] [place] [address] BMPon 03-07-2023 Creatinine [Mass/Vol] 0.9 mg/dL Normal 0.5-1.3 [facility] Comment on above: Performed By: #### 1 0128309, 4240272, 2147221, 7324952, 51309505, 3825097, 6083106, 4941462, 5755579 ####[facility] [address] [place] [address] Urea nitrogen [Mass/Vol] 9 mg/dL Normal 5-21 [facility] Comment on above: Performed By: #### 1 3409983, 7640576, 6388663, 0135555, 99730982, 0203219, 9750611, 9298753, 1822765 ####[facility] [address] [place] [address] Urea nitrogen/Creatinine [Mass ratio] 10 No Units Normal 10-20 [facility] Comment on above: Performed By: #### 1 3074086, 1920142, 0784763, 5090556, 54222211, 5527059, 7419979, 8426104, 0997733 ####[facility] [address] [place] [address] Anion gap [Moles/Vol] 14 mmol/L Normal 6-16 [facility] Comment on above: Performed By: #### 1 8068598, 3832965, 8669846, 5681128, 26286669, 2860563, 2795763, 6646314, 9387097 ####[facility] [address] [place] [address] Calcium [Mass/Vol] 9.4 mg/dL Normal 8.9-11.1 [facility] Comment on above: Performed By: #### 1 9550246, 8620965, 5991311, 6385512, 61156780, 8581971, 4462968, 4487599, 3242049 ####[facility] [address] [place] [address] Chloride [Moles/Vol] 103 mmol/L Normal 101-111 [facility] Comment on above: Performed By: #### 1 5048469, 7445509, 2713558, 6221256, 64031712, 0908569, 8453991, 7203733, 9254082 ####[facility] [address] [place] [address] CO2 [Moles/Vol] 24 mmol/L Normal 21-31 [facility] Comment on above: Performed By: #### 1 0749933, 2911624, 7403473, 4295916, 22055112, 0177903, 8689704, 0722831, 6359146 ####[facility] [address] [place] [address] Glucose [Mass/Vol] 95 mg/dL Normal 55-199 [facility] Comment on above: Result Comment: If t his glucose result represents a fasting glucose, interpretation should refer to the following reference range: 55-99 mg/dL Performed By: #### 1 3322518, 8184059, 5643816, 0412221, 51323320, 4163478, 7671138, 7526567, 0239596 ####[facility] [address] [place] [address] Potassium [Moles/Vol] 3.6 mmol/L Normal 3.5-5.3 [facility] Comment on above: Performed By: #### 1 9415861, 8729880, 6219931, 8081157, 35091749, 3278366, 6356967, 2282866, 8110491 ####[facility] [address] [place] [address] Sodium [Moles/Vol] 137 mmol/L Normal 135-145 [facility] Comment on above: Performed By: #### 1 8788931, 2000545, 9362705, 9532832, 38297620, 3863897, 9720859, 8943236, 4495795 ####[facility] [address] [place] [address] CBC w/ Auto Diffon 3 Erythrocyte distribution width (RBC) [Ratio] 14.0 % Normal 10.9-14.2 [facility] Comment on above: Performed By: #### 1 7719560, 6459579, 7019727, 0343377, 05348749, 4180093, 8242010, 1017370, 7725577 ####[facility] [address] [place] [address] Hematocrit (Bld) [Volume fraction] 37.9 % Normal 34.0-46.0 [facility] Comment on above: Performed By: #### 1 3685901, 0439931, 4040512, 2324644, 98176728, 7018599, 5253251, 0483886, 7857538 ####[facility] [address] [place] [address] Hemoglobin (Bld) [Mass/Vol] 12.6 g/dL Normal 12.0-16.0 [facility] Comment on above: Performed By: #### 1 4224431, 3582543, 2505706, 2345161, 37376887, 1443415, 7582363, 3456528, 5110695 ####[address] [place] [address] MCH (RBC) [Entitic mass] 28.0 pg Normal 27.0-34.0 [facility] Comment on above: Performed By: #### 1 3444859, 6540994, 1486385, 7680681, 48959725, 8206080, 1257770, 9020591, 6408342 ####[place] [address] MCHC (RBC) [Mass/Vol] 33.3 g/dL Normal 31.4-36.0 [facility] Comment on above: Performed By: #### 1 9458839, 2983437, 6305184, 3044057, 68640380, 1828561, 4656495, 6745282, 8323222 ####[address] [address] MCV (RBC) [Entitic vol] 84.0 fL Normal 80.0-100.0 F [facility] Comment on above: Performed By: #### 1 8263863, 2166945, 0429611, 9280493, 58113097, 5187220, 6723509, 6835937, 2823251 ####[address] [place] [address] Platelet mean volume (Bld) [Entitic vol] 7.9 fL Normal 6.4-10.8 [facility] Comment on above: Performed By: #### 1 1376036, 2158186, 2127897, 5136979, 16714057, 2618252, 1420024, 4535175, 2273208 ####[facility] [address] [place] [address] Platelets (Bld) [#/Vol] 442.0 E9/L Normal 150. 0-500. 0 [facility] Comment on above: Performed By: #### 1 9789244, 1565406, 1151100, 4202740, 43468856, 2976435, 4393965, 1653338, 2224998 ####[facility] [address] [place] [address] RBC (Bld) [#/Vol] 4.5 E12/L Normal 4.3-5.9 [facility] Comment on above: Performed By: #### 1 4958033, 9064325, 6825197, 5609177, 07699025, 1910805, 7323291, 7426740, 7092134 ####[facility] [address] [place] [address] WBC corrected for nucl RBC Auto (Bld) [#/Vol] 6.8 E9/L Normal 4.0-11.0 [facility] Comment on above: Performed By: #### 1 7921813, 3199555, 3267993, 7654557, 16134359, 8529114, 0129159, 8196860, 0479042 ####[facility] [address] [place] [address] CHEMISTRYOrdered By: Debby Cleveland on 03-07-2023 Acetaminophen [...] 95 mL/min/1.73 m2 Normal >=59mL/min /1.73 m2 [facility] Chem S Glucose [Mass/Vol] 95 [...] (U) Negative (03/07/23 2:39 PM) Normal Negative [facility] Remisol Consent for Treatmenton Consent for Treatment [id number]:12 7 Normal [facility] ED Clinical Summaryon 2022 ED Clinical Summary (Inserted Image. Nida ble to display) [place] [id number] ED Clinical Summary Person Information Name: ROSE MARY SCHNEIDER/[facility] Age: 17 Years : 2005 Sex: Female Language: Niuean PCP: Fredi Ellington MD Marital Status: Single Phone: [phone] Visit Id: Visit Reason: Suicidal ideation; Intentional ingestion - overdose; SUICIDAL IDEATION Speciality: Acuity: 1 Enc Type: Observation Med Service: Emergency Arrival: 03/07/2023 14:06:45 Discharge: LOS: 000 04:36 Checkin: 03/07/2023 14:06:45 Checkout: 03/07/2023 18:42:28 Dispo Type: Admitted as IP to this [facility] EVENTS: Event Name Event Status [...] 18:42:28 03/07/2023 18:42:28 03/07/2023 18:42:28 AD[address]: [address] [place] [id number] [facility] DOC NOTES: MEDICAL INFORMATION: Prescriptions Given: Medications to Continue with No Changes Other Medications ethinyl estradiol-norethindrone (June08/22 oral tablet) 28 EA, [...] deep vein thrombosis (DVT) prophylaxis [facility] ED Note-Physicianon 03-07-20 ED Note-Physician Basic [...] Oral Susp 240 mL, 50 gm, Oral Sorkzg112-YR [F] 175 mL + acetylSoln-IV [F] 03815 mg, IV Piggyback Dextrose 5% in Water [...] Seizure Procedure/ (more content not included)... Normal [facility] Comment on above: Result Comment: Elec tronically Signed By: Justice Browne MD\.br\Date and Time Signed: 03/07/23 17:43 EDT ED Patient Education Noteon 03-07-2023 ED Patient Education Note Normal [facility] ED Patient Summaryon 023 ED Patient Summary (Inserted Image. Nida ble to display) [place] [id number] Patient Discharge Instructions Person Information Name: ROSE MARY SCHNEIDER Age: 17 Years Arrival Date: 03/07/2023 14:06:45 Discharge Diagnosis: 1:Intentional acetaminophen overdose; 2:Suicidal ideation; 3:Antihistamines overdose; 4:Depression; 5:Seizure; 6:Obesity; 7:On deep vein thrombosis (DVT) prophylaxis Primary Care Physician: Fredi Ellington MD Provider Information Primary Provider: Justice Browne MD Advanced Hand Former:None The exam and treatment you received in the Emergency Department were for an urgent problem and are not intended as complete care. It is important that you follow up with a doctor, nurse practitioner, or physician?s assistant men's soccer coach for ongoing care. If your symptoms become [...] opioids can be used to help relieve dhnnxyep-lz-dhgvuk pain and are often prescribed following a [...] be struggling with addiction, tell your health medicare compliance auditor and ask for guidance or call [facility] National Helpline at 1-499-789-XVTN. i Source: Department of Health and Human (more content not included)... Normal [facility] Ethanolon 03-07-2023 Ethanol [Mass/Vol] mg/dL Normal <=7 [facility] Comment on above: Performed By: #### 2 [id number] #### [facility] Laboratory [address] [place] [address] HEMATOLOGYOrdered By: SYSTEM SYSTEM on 03-07-2023 Basophils/100 [...] E9/L Normal 4.0 - 11.0 E9/L [facility] HemeAutoSS Hep Func Panelon 03-07-2023 Albumin [Mass/Vol] 3.2 g/dL Low 3.3-5.0 [facility] Comment on above: Performed By: #### 2 [id number], [id number] #### [facility] Laboratory [address] [place] [address] Albumin/Globulin (S) [Mass conc ratio] 0.7 Low 1.1-2.2 [facility] Comment on above: Performed By: #### 2 963535, [id number] #### [facility] [address] [place] [address] ALP [Catalytic activity/Vol] 45 Int._Unit/L Normal 21-98 [facility] Comment on above: Performed By: #### 2 984428, 5298732 #### [facility] [address] [place] [address] ALT No additional P-5'-P [Catalytic activity/Vol] 12 Int._Unit/L Normal 6-46 [facility] Comment on above: Performed By: #### 2 776798, [id number] #### [facility] [address] [place] [address] AST [Catalytic activity/Vol] 16 Int._Unit/L Normal 5-43 [facility] Comment on above: Performed By: #### 2 818657, 1191510 #### [facility] [address] [place] [address] Bilirubin [Mass/Vol] 0.2 mg/dL Normal 0.0-1.1 [facility] Comment on above: Performed By: #### 2 234017, 3614267 #### [facility] [address] [place] [address] Bilirubin.indirect [Mass or moles/Vol] UTC Abnormal 0.1-0.9 [facility] Comment on above: Result Comment: Resu lt verified by Discern Rule. Performed result UTC (Unable to Calculate) was sent as an Alpha code due the inability to calculate a valid numeric value. Performed By: #### 2 999879, [id number] #### [facility] [address] [place] [address] Globulin (S) [Mass/Vol] 4.6 g/dL High 1.4-4.0 [facility] Comment on above: Performed By: #### 2 102144, 1179180 #### [facility] [address] [place] [address] Protein [Mass/Vol] 7.8 g/dL Normal 6.0-7.8 [facility] Comment on above: Performed By: #### 2 937818, 8843470 #### [facility] [address] [place] [address] Bilirubin.direct [Mass/Vol] mg/dL Normal 0.1-0.4 [facility] Comment on above: Performed By: #### 2 193790, 0946429 #### [facility] [address] [place] [address] Bilirubin.indirect [Mass or moles/Vol] UTC Abnormal 0.1-0.9 [facility] Comment on above: Result Comment: Resu lt verified by Discern Rule. Performed result UTC (Unable to Calculate) was sent as an Alpha code due the inability to calculate a valid numeric value. Performed By: #### 1 [id number], 2961998, 7672431, 4931074, 81598797, 7738850, 4741739, 0167487, 5085352 ####[place] [address] [place] [address] Albumin [Mass/Vol] 3.1 g/dL Low 3.3-5.0 [facility] Comment on above: Performed By: #### 1 8845481, 3388509, 5062945, 5656995, 54990828, 4534565, 1195077, 2410033, 8324957 ####[place] [address] [address] [place] [address] Albumin/Globulin (S) [Mass conc ratio] 0.7 Low 1.1-2.2 [facility] Comment on above: Performed By: #### 1 1628624, 1090151, 4244243, 7887139, 97780525, 4809843, 9526559, 3286990, 4657967 ####[address] [address] ALP [Catalytic activity/Vol] 48 Int._Unit/L Normal 21-98 [facility] Comment on above: Performed By: #### 1 7609193, 1509071, 7958544, 9150421, 81437121, 6225482, 3485198, 0973501, 5894119 ####[place] [address] [place] [address] ALT No additional P-5'-P [Catalytic activity/Vol] 11 Int._Unit/L Normal 6-46 [facility] Comment on above: Performed By: #### 1 6137626, 1335495, 2311721, 7850072, 00551947, 7656539, 6463726, 4375869, 2277154 ####[place] [address] [place] [address] AST [Catalytic activity/Vol] 16 Int._Unit/L Normal 5-43 [facility] Comment on above: Performed By: #### 1 2735825, 5786680, 1316919, 7149802, 03991348, 0766609, 7488309, 3846355, 9857881 ####[facility] [address] [place] [address] Bilirubin [Mass/Vol] 0.5 mg/dL Normal 0.0-1.1 [facility] Comment on above: Performed By: #### 1 2181212, 3279583, 7579434, 3637014, 10157463, 0182518, 4454612, 5778017, 8994789 ####[place] [address] [place] [address] Globulin (S) [Mass/Vol] 4.4 g/dL High 1.4-4.0 [facility] Comment on above: Performed By: #### 1 5651805, 5124625, 2783307, 0630148, 57090184, 5536941, 5994657, 6117260, 4745619 ####[address] [address] Protein [Mass/Vol] 7.5 g/dL Normal 6.0-7.8 [facility] Comment on above: Performed By: #### 1 9773199, 8333528, 9189437, 9115907, 29803212, 8942792, 5104341, 9541309, 6055523 ####[address] [address] Bilirubin.direct [Mass/Vol] mg/dL Normal 0.1-0.4 [facility] Comment on above: Performed By: #### 1 9566730, 5805761, 9662420, 7963741, 93852631, 5811129, 1173944, 2352748, 3654020 ####[place] [address] [place] [address] Lipase Levelon 03-07-2023 Lipase [Catalytic activity/Vol] 24 U/L Normal 13-58 [facility] Comment on above: Performed By: #### 1 8660518, 4007257, 3126691, 7596824, 73446894, 7395090, 6964937, 8457344, 8257679 #### [facility] Laboratory [address] [place] [address] Monitor Recordon 03-07-2023 Monitor Record [id number]#[id number]:1 27 [facility] Monitor Record [id number]#[id number]:1 27 [facility] Monitor Record [id number]#[id number]:1 27 [facility] Pre-Arrival Noteon Pre-Arrival Note Pre-Arrival Summary Name: , Current Date: 03/07/2023 14:11:15 EDT Gender: Date of : Age: 17 Pre-Arrival Type: EMS ETA: 03/07/2023 14:33:00 EDT Primary Care Physician: Presenting Problem: overdose tylenol PM Pre-Arrival User: Julianne Sanford RN Referring Source: Location: [place] Completion Date/Time: 03/07/2023 14:03:00 [facility] Emergency Department Pre-Hospital Report Form ____ Vital Signs: Pre-Hospital Report: Treatment in Route: Response to Treatment: Misc. Issues: [facility] Progress Note-Nurseon 2022 Progress Note-Nurse Poison Control aj d and spoke with Chiquis who verbalized [address] Andrew jauregui [facility] SEROLOGYOrdered By: Kizzy Newby on 03-07-2023 Beta hCG Ql Negative (03/07/23 2:43 PM) Normal [facility] Man Sero Salicylateon 03-07-2023 Salicylates [Mass/Vol] mg/dL Low 6-[address] [facility] Comment on above: Performed By: #### 1 [id number], 0136632, 4967843, 3892257, 67211989, 9294823, 2169468, 3303708, 3269158 #### [facility] [address] [place] [address] U Drug Screenon 03-07-2023 Amphetamines Screen method >1000 ng/mL Ql (U) Negative Normal Negative [facility] Comment on above: Result Comment: Nega tive Cutoff: <1000 ng/mL Performed By: #### 2 801925 #### [facility] [address] [place] [address] Barbiturates Screen Ql (U) Negative Normal Negative [facility] Comment on above: Result Comment: Nega tive Cutoff: <200 ng/mL Performed By: #### 2 614426 #### [facility] [address] [place] [address] Benzodiazepines Ql (U) Negative Normal Negative [facility] Comment on above: Result Comment: Nega tive Cutoff: <200 ng/mL Performed By: #### 2 366075 #### [facility] [address] [place] [address] Cocaine Ql (U) Negative Normal Negative [facility] Comment on above: Result Comment: Nega tive Cutoff: <300 ng/mL Performed By: #### 2 979330 #### [facility] [address] [place] [address] Opiates Screen Ql (U) Negative Normal Negative [facility] Comment on above: Result Comment: Nega tive Cutoff: <300 ng/mL Performed By: #### 2 641353 #### [facility] [address] [place] [address] Phencyclidine Screen method >25 ng/mL Ql (U) Negative Normal Negative [facility] Comment on above: Result Comment: Nega tive Cutoff: <25 ng/mL These drug screen results are to be used for medical (i.e., treatment) purposes only. Unconfirmed drug screening results must not be used for non-medical purposes (e.g., employment testing, legal testing). Performed By: #### 2 875375 #### [facility] [address] [place] [address] Tetrahydrocannabinol Screen method >50 ng/mL Ql (U) Negative Normal Negative [facility] Comment on above: Result Comment: Nega tive Cutoff: <50 ng/mL Performed By: #### 2 060073 #### [facility] [address] [place] [address] XR Chest Single Viewon 03-07 XR Chest [...] GARTH Technologist: AJ, Technical Comments Radiation Dose: Kar in mGy = na DAP = na Normal [facility] eGFRon 03-07-2023 GFR/1.73 sq M.predicted among non-blacks MDRD (S/P/Bld) [Vol rate/Area] 95 mL/min/1.73 m2 Normal >=59 [facility] Comment on above: Order Comment: Order added by Discern Expert. Result Comment: Studio Grip marleny kidney disease could be indicated at eGFR's of less than 60 mL/min/1.73m2. Kidney failure is indicated at less than 15 mL/min/1.73m2. Performed By: #### 1 6350096, 7125869, 4590148, 1756652, 03872551, 3047921, 8016435, 0995204, 5656154 ####[facility] [address] [place] [address] B hCG Qualon 02-27-2023 Beta hCG Ql Negative Normal [facility] Comment on above: Performed By: #### 2 552932, 6997470 #### [facility] Laboratory [address] [place] [address] Consent for Treatmenton 02-01 Consent for Treatment [id number]#1.00CD:12 7 Normal [facility] Physician Orderon 02-27-2023 Physician Order [id number]#1.00CD:1 27 Normal [facility] SEROLOGYOrdered By: Kizzy Kirk on 02-27-2023 [...] PM) Normal Negative [facility] UA Auto SS [place].plasma/[place]. RBC (Bld) [Mass ratio] 0-3 /HPF Normal [...] PM) Invalid Interpretation Code 1.005 - 1.030 [facility] UA Auto SS UA Spec Desc Clean Catch (11/13/22 2:29 PM) Normal [facility] UA Auto SS Urobilinogen Qn (U) 0.3775165 {Ed'U}/dL Normal 0.0 - 1.0 EU/dL [facility] UA Auto SS WBC Auto Ql (U) Trace *ABN* (11/13/22 2:29 PM) Invalid Interpretation Code Negative [facility] UA Auto SS WBC LM.HPF (Urine sed) [#/Area] 0-5 /HPF Normal 0-5/HPF [facility] UA Auto SS CBC AUTO DIFFon 11-05-2022 BASO # 0.0 103/ul Normal 0.0-0.1 [facility] Comment on above: Performed By: #### C BC #### [facility] [address] [address] [address] Tara Jackson Basophils/100 WBC (Bld) 0.5 % Normal 0.2-2.0 [facility] Comment on above: Performed By: #### C BC #### [facility] [address] [address] [address] Tara Jackson EO # 0.3 103/ul Normal 0.0-0.7 [facility] Comment on above: Performed By: #### C BC #### [facility] [address] [address] [address] Tara Jackson Eosinophils/100 WBC (Bld) 4.9 % Normal 0.9-7.0 [facility] Comment on above: Performed By: #### C BC #### [facility] [address] [address] [address] Tara Jackson Erythrocyte distribution width (RBC) [Ratio] 12.8 % Normal 11.0-15.0 [facility] Comment on above: Performed By: #### C BC #### [facility] [address] [place] [address] Dr. Tara Jackson Hematocrit (Bld) [Volume fraction] 35.8 % Critically low 36.0-48.0 [facility] Comment on above: Performed By: #### C BC #### [facility] [address] [place] [address] Dr. Tara Jackson Hemoglobin (Bld) [Mass/Vol] 11.8 g/dL Critically low 12.0-16.0 [facility] Comment on above: Performed By: #### C BC #### [facility] [address] [place] [address] Dr. Tara Jackson IG # 0.01 10e3/ul Normal 0.00-0.03 [facility] Comment on above: Performed By: #### C BC #### [facility] [address] [place] [address] Dr. Tara Jackson IG % 0.2 % Normal 0.0-0.5 [facility] Comment on above: Performed By: #### C BC #### [facility] [address] [place] [address] Dr. Tara Jackson LYMPH # 1.7 103/ul Normal 1.2-3.8 [facility] Comment on above: Performed By: #### C BC #### [facility] [address] [place] [address] Dr. Tara Jackson Lymphocytes/100 WBC (Bld) 30.2 % Normal 20.5-60.0 [facility] Comment on above: Performed By: #### C BC #### [facility] [address] [place] [address] Dr. Tara Jackson MANUAL DIFF REQ NO Normal [facility] Comment on above: Performed By: #### C BC #### [facility] [address] [place] [address] Dr. Tara Jackson MCH (RBC) [Entitic mass] 27.6 pg Normal 26.7-34.0 [facility] Comment on above: Performed By: #### C BC #### [facility] [address] [place] [address] Dr. Tara Jackson MCHC (RBC) [Mass/Vol] 33.0 g/dL Normal 29.9-35.2 [facility] Comment on above: Performed By: #### C BC #### [facility] [address] [address] [address] Tara Jackson MCV (RBC) [Entitic vol] 83.8 fL Normal 79.1-95.6 [facility] Comment on above: Performed By: #### C BC #### [facility] [address] [address] [address] Tara Jackson MONO # 0.5 103/ul Normal 0.3-0.8 [facility] Comment on above: Performed By: #### C BC #### [facility] [address] [place] [address] Dr. Tara Jackson Monocytes/100 WBC (Bld) 7.9 % Normal 1.7-12.0 [facility] Comment on above: Performed By: #### C BC #### [facility] [address] [place] [address] Dr. Tara Jackson NEUT # 3.2 103/ul Normal 1.4-6.5 [facility] Comment on above: Performed By: #### C BC #### [facility] [address] [place] [address] Dr. Tara Jackson Neutrophils/100 WBC (Bld) 56.3 % Normal 43.0-75.0 [facility] Comment on above: Performed By: #### C BC #### [facility] [address] [place] [address] Dr. Tara Jackson Platelet mean volume (Bld) [Entitic vol] 9.0 fL Critically low 9.5-13.5 [facility] Comment on above: Performed By: #### C BC #### [facility] [address] [place] [address] Dr. Tara Jackson PLT 373 103/ul Normal 150-450 [facility] Comment on above: Performed By: #### C BC #### [facility] [address] [place] [address] Dr. Tara Jackson RBC 4.27 106/ul Normal 3.40-5.30 [facility] Comment on above: Performed By: #### C BC #### [facility] [address] [place], [place] [address] Dr. Tara Jackson WBC 5.7 103/ul Normal 4.0-11.0 [facility] Comment on above: Performed By: #### C #### [facility] [address] [place], [place] [address] Dr. 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 Admission #: [id number] Family : TEENA TRAN . Order #: [id number] CLICK HERE TO VIEW EXAM ECHOCARDIOGRAM REPORT [...] Tafoya M.D. on 11/06/2022 at 18:40 Normal [facility] PREG HCG QUALon 11-05-2022 , QUAL Negative Normal NEGATIVE [facility] Comment on above: Performed By: #### C BC #### [facility] [address] [place] [address] Dr. Tara Jackson PROF CHEM 8 (BAS METB)on Anion gap [Moles/Vol] 11.4 mmol/L Normal [facility] Comment on above: Performed By: #### C VDTBH #### [facility] [address] [place] [address] Dr. Tara Jackson Calcium [Mass/Vol] 8.5 mg/dL Normal 8.5-10.1 [facility] Comment on above: Performed By: #### C VDTBH #### [facility] [address] [place] [address] Dr. Tara Jackson Chloride [Moles/Vol] 103 mmol/L Normal 98-107 [facility] Comment on above: Performed By: #### C VDTBH #### [facility] [address] [place] [address] Dr. Tara Jackson CO2 [Moles/Vol] 27.5 mmol/L Normal 21.0-32.0 [facility] Comment on above: Performed By: #### C VDTBH #### [facility] [address] [place] [address] Dr. Tara Jackson Creatinine [Mass/Vol] 0.67 mg/dL Normal 0.55-1.02 [facility] Comment on above: Performed By: #### C VDTBH #### [facility] [address] [place] [address] Dr. Tara Jackson Glucose [Mass/Vol] 93 mg/dL Normal 74-106 [facility] Comment on above: Performed By: #### C VDTBH #### [facility] [address] [place] [address] Dr. Tara Jackson Potassium [Moles/Vol] 3.9 mmol/L Normal 3.5-5.1 [facility] Comment on above: Performed By: #### C VDTBH #### [facility] [address] [place] [address] Dr. Tara Jackson Sodium [Moles/Vol] 138 mmol/L Normal 136-145 [facility] Comment on above: Performed By: #### C VDTBH #### [facility] [address] [place] [address] Dr. Tara Jackson Urea nitrogen [Mass/Vol] 15.0 mg/dL Normal 6.4-19.3 [facility] Comment on above: Performed By: #### C VDTBH #### [facility] [address] [place] [address] Dr. Tara Jackson Urea nitrogen/Creatinine [Mass ratio] 22.4 mg/mg Normal [facility] Comment on above: Performed By: #### C VDTBH #### [facility] [address] [place] [address] Dr. Tara Jackson CHEMISTRYOrdered By: SYSTEM SYSTEM [...] 3.8 E9/L Normal 1.3 - 6.0 E9/L FT HemeAutoSS HEMATOLOGYOrdered By: Ruth Miller on 10-10-2022 [...] NEG Ctl Pass (10/10/22 10:09 PM) Normal [facility] Man Sero Rapid COV Int POS Ctl Pass (10/10/22 10:09 PM) Normal [facility] Man Sero SARS-CoV+SARS-CoV-2 (COVID-19) Ag IA.rapid Ql (Resp) Not Detected (10/10/22 10:09 PM) Normal Not Detected [facility] Man Sero SEROLOGYOrdered By: Ruth orellana on 10-10-2022 HCG.beta subunit (U) [Moles/Vol] Negative Normal [facility] Man Sero CHEMISTRYOrdered By: SYSTEM SYSTEM on [...] 0.3 % Normal 0.0 - 2.0 % FT HemeAutoSS Basophils/Leukocytes Auto (Bld) [Pure # fraction] [...] AM) Normal Negative [facility] UA Auto SS [place].plasma/[place]. RBC (Bld) [Mass ratio] 0-3 /HPF Normal [...] Invalid Interpretation Code 1.005 - 1.030 [facility] UA Auto SS UA Spec Desc Clean Catch (10/06/22 1:20 AM) Normal [facility] UA Auto SS Urobilinogen Qn (U) 0.7505422 {Ed'U}/dL Normal 0.0 - 1.0 EU/dL [facility] UA Auto SS WBC Auto Ql (U) Negative (10/06/22 1:20 AM) Normal Negative [facility] UA Auto SS WBC LM.HPF (Urine sed) [#/Area] 0-5 /HPF Normal 0-5/HPF [facility] UA Auto SS CHEMISTRYOrdered By: Lab ROP User on 10-05-2022 Glucose [Mass/Vol] 131 mg/dL High 55 - 99 mg/dL [facility] POC Subsection Comment on above: Result Comment: Shanique percy Meter POC Device SN [id number] Invalid Interpretation Code [facility] POC Subsection POC User ID [id number] Invalid Interpretation Code [facility] POC Subsection POC Username PENNIE GARCIABakari Invalid Interpretation Code [facility] POC Subsection LEVETIRACETAM, SERUM OR PLAS MAon 09-27-2022 Levetiracetam, S 13.6 ug/mL Normal 10.0-40.0 [facility] Comment on above: Performed By: #### C BC #### [facility] [address] [place] [address] Dr. Tara Jackson INSULINon 09-26-2022 Insulin 21.0 uIU/mL Normal 2.6-24.9 [facility] Comment on above: Performed By: #### I NSULIN #### [facility] [address] [place] [address] Dr. Tara Jackson BILIRUBIN CONJUGATED (DIRECT )on 09-25-2022 BILI, CONJUGATED 0.1 mg/dL Normal 0.0-0.2 [facility] Comment on above: Performed By: #### C VDTBH #### [facility] [address] [place] [address] Dr. Tara Jackson CBC AUTO DIFFon 09-25-2022 BASO # 0.0 103/ul Normal 0.0-0.1 [facility] Comment on above: Performed By: #### C VDTBH #### [facility] [address] [place] [address] Dr. Tara Jackson Basophils/100 WBC (Bld) 0.6 % Normal 0.2-2.0 [facility] Comment on above: Performed By: #### C VDTBH #### [facility] [address] [place] [address] Dr. Tara Jackson EO # 0.3 103/ul Normal 0.0-0.7 [facility] Comment on above: Performed By: #### C VDTBH #### [facility] Laboratory [address] [place] [address] Dr. Taar Jackson Eosinophils/100 WBC (Bld) 4.5 % Normal 0.9-7.0 [facility] Comment on above: Performed By: #### C VDTBH #### [facility] Laboratory [address] [place] [address] Dr. Tara Jackson Erythrocyte distribution width (RBC) [Ratio] 12.2 % Normal 11.0-15.0 [facility] Comment on above: Performed By: #### C VDTBH #### [facility] Laboratory [address] [place] [address] Dr. Tara Jackson Hematocrit (Bld) [Volume fraction] 38.4 % Normal 36.0-48.0 [facility] Comment on above: Performed By: #### C VDTBH #### [facility] Laboratory [address] [place] [address] Dr. Tara Jackson Hemoglobin (Bld) [Mass/Vol] 13.0 g/dL Normal 12.0-16.0 [facility] Comment on above: Performed By: #### C VDTBH #### [facility] Laboratory [address] [place] [address] Dr. Tara Jackson IG # 0.01 10e3/ul Normal 0.00-0.03 [facility] Comment on above: Performed By: #### C VDTBH #### [facility] [address] [place] [address] Dr. Tara Jackson IG % 0.2 % Normal 0.0-0.5 [facility] Comment on above: Performed By: #### C VDTBH #### [facility] [address] [place] [address] Dr. Tara Jackson LYMPH # 1.8 103/ul Normal 1.2-3.8 [facility] Comment on above: Performed By: #### C VDTBH #### [facility] Laboratory [address] [place] [address] Dr. Tara Jackson Lymphocytes/100 WBC (Bld) 28.7 % Normal 20.5-60.0 [facility] Comment on above: Performed By: #### C VDTBH #### [facility] Laboratory [address] [place] [address] Dr. Tara Jackson MANUAL DIFF REQ NO Normal [facility] Comment on above: Performed By: #### C VDTBH #### [facility] [address] [place] [address] Dr. Tara Jackson MCH (RBC) [Entitic mass] 28.6 pg Normal 26.7-34.0 [facility] Comment on above: Performed By: #### C VDTBH #### [facility] Laboratory [address] [place] [address] Dr. Tara Jackson MCHC (RBC) [Mass/Vol] 33.9 g/dL Normal 29.9-35.2 [facility] Comment on above: Performed By: #### C VDTBH #### [facility] Laboratory [address] [place] [address] Dr. Tara Jackson MCV (RBC) [Entitic vol] 84.4 fL Normal 79.1-95.6 [facility] Comment on above: Performed By: #### C VDTBH #### [facility] Laboratory [address] [place] [address] Dr. Tara Jacksno MONO # 0.4 103/ul Normal 0.3-0.8 [facility] Comment on above: Performed By: #### C VDTBH #### [facility] [address] [place] [address] Dr. Tara Jackson Monocytes/100 WBC (Bld) 6.5 % Normal 1.7-12.0 [facility] Comment on above: Performed By: #### C VDTBH #### [facility] Laboratory [address] [address] [address] Tara Jackson NEUT # 3.7 103/ul Normal 1.4-6.5 [facility] Comment on above: Performed By: #### C VDTBH #### [facility] [address] [address] [address] Tara Jackson Neutrophils/100 WBC (Bld) 59.5 % Normal 43.0-75.0 [facility] Comment on above: Performed By: #### C VDTBH #### [facility] [address] [address] [address] Tara Jackson Platelet mean volume (Bld) [Entitic vol] 9.0 fL Critically low 9.5-13.5 [facility] Comment on above: Performed By: #### C VDTBH #### [facility] [address] [place] [address] Dr. Tara Jackson PLT 401 103/ul Normal 150-450 [facility] Comment on above: Performed By: #### C VDTBH #### [facility] [address] [place] [address] Dr. Tara Jackson RBC 4.55 106/ul Normal 3.40-5.30 [facility] Comment on above: Performed By: #### C VDTBH #### [facility] [address] [place] [address] Dr. Tara Jackson WBC 6.2 103/ul Normal 4.0-11.0 [facility] Comment on above: Performed By: #### C VDTBH #### [facility] [address] [place] [address] Dr. Tara Jackson FREE THYROXINE INDEX T7on FTI 2.77 Normal 1.30-4.50 [facility] Comment on above: Performed By: #### C BC #### [facility] [address] [place] [address] Dr. Tara Jackson T3U 36.0 % Normal 30.0-39.0 [facility] Comment on above: Performed By: #### C BC #### [facility] [address] [place] [address] Dr. Tara Jackson T4 [Mass/Vol] 7.70 ug/dL Normal 5.40-10.60 [facility] Comment on above: Performed By: #### C BC #### [facility] [address] [place] [address] Dr. Tara Jackson GLYCOHEMOGLOBIN A1Con 2022 ADA RECOMMENDATION SEE BELOW Normal [facility] Comment on above: Result Comment: ADA RECOMMENDED LIMIT 4.0 - 6.0 ADA THERAPEUTIC TARGET < 7.0 ACTION SUGGESTED > 7.0 Performed By: #### A 1C #### [facility] [address] [place] [address] Dr. Tara Jackson Glucose [Mass/Vol] 103 mg/dL Normal [facility] Comment on above: Performed By: #### A 1C #### [facility] [address] [place] [address] Dr. Tara Jackson HbA1c (Bld) [Mass fraction] 5.2 % Normal 4.5-6.2 [facility] Comment on above: Performed By: #### A 1C #### [facility] [address] [place] [address] Dr. Tara Jackson IRONon 09-25-2022 Iron [Mass/Vol] 33.0 ug/dL Critically low 50.0-170.0 [facility] Comment on above: Performed By: #### C VDTB #### [facility] [address] [place] [address] Dr. Tara Jackson LIPID PROFILEon 09-25-2022 CHOL-HDL RATIO NORM SEE BELOW Normal [facility] Comment on above: Result Comment: 3.3 - 4.4 LOW RISK 4.4 - 7.1 AVERAGE RISK 7.1 - 11.0 MODERATE RISK >11.0 HIGH RISK Performed By: #### C BC #### [facility] [address] [place] [address] Dr. Tara Jackson Cholesterol [Mass/Vol] 189 mg/dL Normal 104-[address] [facility] Comment on above: Performed By: #### C BC #### [facility] [address] [address] [address] Tara Jackson Cholesterol in HDL [Mass/Vol] 36 mg/dL Normal 29-69 [facility] Comment on above: Performed By: #### C BC #### [facility] [address] [id number] Tara Jackson Cholesterol in LDL [Mass/Vol] 128.4 mg/dL Normal 46.0-140.0 [facility] Comment on above: Performed By: #### C BC #### [facility] [address] [place] [address] Dr. Tara Jackson Cholesterol.total/Vianey sterol in HDL [Mass ratio] 5.3 {ratio} Normal [facility] Comment on above: Performed By: #### C BC #### [facility] [address] [place] [address] Dr. Tara Jackson HDL NORMAL > or = 60 mg/dl - LO W CARDIOVASCULAR RISK <40 mg/dl - HIGH CARDIOVASCULAR RISK Normal [facility] Comment on above: Performed By: #### C BC #### [facility] [address] [place] [address] Dr. Tara Jackson LDL CALC NORMAL SEE BELOW Normal [facility] Comment on above: Result Comment: <100 mg/dl OPTIMAL 100 - 129 mg/dl NEAR OR ABOVE OPTIMAL 130 - 159 mg/dl BORDERLINE HIGH 160 - 189 mg/dl HIGH >190 mg/dl VERY HIGH Performed By: #### C BC #### [facility] [address] [place] [address] Dr. Tara Jackson Triglyceride [Mass/Vol] 123 mg/dL Normal 53-208 T [facility] Comment on above: Performed By: #### C BC #### [facility] [address] [place] [address] Dr. Tara Jackson VLDL CALC 24.6 mg/dL Normal [facility] Comment on above: Performed By: #### C BC #### [facility] [address] [place] [address] Dr. Tara Jackson PROF 14(COMP METB)on 023 Albumin [Mass/Vol] 3.2 g/dL Critically low 3.4-5.0 Th e [facility] Comment on above: Performed By: #### C BC #### [facility] [address] [place] [address] Dr. Tara Jackson Albumin/Globulin [Mass ratio] 0.7 {ratio} Normal [facility] Comment on above: Performed By: #### C BC #### [facility] [address] [place] [address] Dr. Tara Jackson ALP [Catalytic activity/Vol] 80 U/L Normal 65-260 [facility] Comment on above: Performed By: #### C BC #### [facility] [address] [place] [address] Dr. Tara Jackson ALT [Catalytic activity/Vol] 18 U/L Normal 14-59 [facility] Comment on above: Performed By: #### C BC #### [facility] [address] [place] [address] Dr. Tara Jackson Anion gap [Moles/Vol] 9.0 mmol/L Normal [facility] Comment on above: Performed By: #### C BC #### [facility] [address] [place] [address] Dr. Tara Jackson AST [Catalytic activity/Vol] 18 U/L Normal 15-37 [facility] Comment on above: Performed By: #### C BC #### [facility] [address] [place] [address] Dr. Tara Jackson Bilirubin [Mass/Vol] 0.2 mg/dL Normal 0.2-1.0 [facility] Comment on above: Performed By: #### C BC #### [facility] [address] [place] [address] Dr. Tara Jackson Calcium [Mass/Vol] 9.1 mg/dL Normal 8.5-10.1 [facility] Comment on above: Performed By: #### C BC #### [facility] [address] [place] [address] Dr. Tara Jackson Chloride [Moles/Vol] 101 mmol/L Normal 98-107 [facility] Comment on above: Performed By: #### C BC #### [facility] [address] [address] [address] Tara Jackson CO2 [Moles/Vol] 30.2 mmol/L Normal 21.0-32.0 [facility] Comment on above: Performed By: #### C BC #### [facility] [address] [address] [address] Tara Jackson Creatinine [Mass/Vol] 0.80 mg/dL Normal 0.55-1.02 [facility] Comment on above: Performed By: #### C BC #### [facility] [address] [address] [address] Tara Jackson Globulin (S) [Mass/Vol] 4.3 g/dL Normal T [facility] Comment on above: Performed By: #### C BC #### [facility] [address] [address] [address] Tara Jackson Glucose [Mass/Vol] 101 mg/dL Normal 74-106 [facility] Comment on above: Performed By: #### C BC #### [facility] [address] [address] [address] Tara Jackson Potassium [Moles/Vol] 4.2 mmol/L Normal 3.5-5.1 [facility] Comment on above: Performed By: #### C BC #### [facility] [address] [place] [address] Dr. Tara Jackson Protein [Mass/Vol] 7.5 g/dL Normal 6.4-8.2 [facility] Comment on above: Performed By: #### C BC #### [facility] [address] [address] [address] Tara Jackson Sodium [Moles/Vol] 136 mmol/L Normal 136-145 [facility] Comment on above: Performed By: #### C BC #### [facility] [address] [address] [address] Tara Jackson Urea nitrogen [Mass/Vol] 11.0 mg/dL Normal 6.4-19.3 [facility] Comment on above: Performed By: #### C BC #### [facility] [address] [address] [address] Tara Jackson Urea nitrogen/Creatinine [Mass ratio] 13.8 mg/mg Normal [facility] Comment on above: Performed By: #### C BC #### [facility] [address] [address] [address] Tara Jackson TSHon 09-25-2022 TSH 5.240 uIU/mL Critically high 0.516-4.13 0 [facility] Comment on above: Performed By: #### C BC #### [facility] [address] [address] [address] Tara Jackson Covid-19 PCR (CVDTB)on SARS-CoV-2 (COVID-19) RNA CHRISTIAN+probe Ql (Unsp spec) Not detected Normal NOT DETECTED [facility] Comment on above: Result Comment: This test is not yet approved or cleared by the [place] FDA. When there are no FDA-approved or cleared tests available, and other criteria are met, FDA can make tests available under an emergency access mechanism called an Emergency Use Authorization (EUA). The EUA for this test is supported by the Developmental Therapist of Health and Human Service's (HHS's) declaration [...] By: #### C VDTB #### [facility] Laboratory [address] [place] [address] Dr. Tara Jackson INFLUENZA A AND B AGon 09-11 INFLUANEGH SEE BELOW Normal [facility] Comment on above: Result Comment: Nega tive for Flu A protein angiten. Infection due to Flu A cannot be ruled out. Flu A angiten in the sample may be below the detection limit of the test. Performed By: #### I NFLUAB #### [facility] Laboratory [address] [place] [address] Dr. Tara Jackson [facility] SEE BELOW Normal [facility] Comment on above: Result Comment: Nega tive for Flu B protein antigen. Infection due to Flu B cannot be ruled out. Flu B antigen in the sample may be below the detection limit of the test. Performed By: #### I NFLUAB #### [facility] Laboratory [address] [place] [address] Dr. Tara Jackson INFLUENZA A AG Negative Normal NEGATIVE SEE COMMENT [facility] Comment on above: Performed By: #### I NFLUAB #### [facility] Laboratory [address] [place] [address] Dr. Tara Jackson INFLUENZA B AG Negative Normal NEGATIVE SEE COMMENT [facility] Comment on above: Performed By: #### I NFLUAB #### [facility] Laboratory [address] [place] [address] Dr. Tara Jackson [facility]on SARS-CoV-2 (COVID-19) RNA CHRISTIAN+probe Ql (Unsp spec) Not detected Normal NOT DETECTED [facility] Comment on above: Result Comment: [...] for this test is supported by the Developmental Therapist of Health and Human Service's declaration that [...] By: #### C VDTBH #### [facility] Laboratory [address] [place] [address] Dr. Tara Jackson INFLUENZA A AND B AGon 08-05 [facility] SEE BELOW Normal [facility] Comment on above: Result Comment: Nega tive for Flu A protein angiten. Infection due to Flu A cannot be ruled out. Flu A angiten in the sample may be below the detection limit of the test. Performed By: #### I NFLUAB #### [facility] Laboratory [address] [place] [address] Dr. [facility] Normal [facility] Comment on above: Result Comment: Nega tive for Flu B protein antigen. Infection due to Flu B cannot be ruled out. Flu B antigen in the sample may be below the detection limit of the test. Performed By: #### I NFLUAB #### [facility] Laboratory [address] [place] [address] Dr. Tara Jackson INFLUENZA A AG Negative Normal NEGATIVE SEE COMMENT [facility] Comment on above: Performed By: #### I NFLUAB #### [facility] Laboratory [address] [place] [address] Dr. Tara Jackson INFLUENZA B AG Negative Normal NEGATIVE SEE COMMENT [facility] Comment on above: Performed By: #### I NFLUAB #### [facility] Laboratory [address] [place] [address] Dr. Tara Jackson Albumin [Mass/volume] in Ser um or PlasmaOrdered By: Fredi Ellington on 07-31-2022 Albumin [Mass/Vol] 3.2 g/dL 3.2-5.5 [facility] Basophils Auto (Bld) [#/Vol] Ordered By: Fredi Ellington on 07-31-2022 Basophils (Bld) [#/Vol] 0.0 10*3/uL 0.0-0.1 [facility] Basophils/100 WBC Auto (Bld) Ordered By: Fredi Ellington on 07-31-2022 Basophils/100 WBC (Bld) 0.4 % . F [facility] Cholesterol [Mass/volume] in Serum or PlasmaOrdered By: Fredi Ellington on 07-31-2022 Cholesterol [Mass/Vol] 264 mg/dL 140-200 [facility] Comment on above: Chol less than 200 m g/dl low riskChol 201-239 mg/dl borderline riskChol 240 mg/dl and greater high risk Cholesterol in LDL Calc [Mas s/Vol]Ordered By: Fredi Ellington on 07-31-2022 Cholesterol in LDL [Mass/Vol] 168 mg/dL 0-100 [facility] Comment on above: LDL ATP III CLASSIFI CATIONLDL less than 100 mg/dL OptimalLDL 100-129 mg/dL Near or above optimalLDL 130-159 mg/dL Borderline highLDL 160-189 mg/dL HighLDL greater than 189 mg/dL Very high Cholesterol in VLDL Calc [Ma ss/Vol]Ordered By: Fredi Ellington on 07-31-2022 Cholesterol in VLDL [Mass/Vol] 17 mg/dL [facility] Creatinine and Glomerular fi ltration rate.predicted panel (S/P/Bld)Ordered By: Fredi Ellington on 07-31-2022 Creatinine [Mass/Vol] 0.87 mg/dL 0.44-1.03 [facility] Eosinophils Auto (Bld) [#/Vo l]Ordered By: Fredi Ellington on 07-31-2022 Eosinophils (Bld) [#/Vol] 0.0 10*3/uL 0.0-0.7 [facility] Eosinophils/100 WBC Auto (Bl d)Ordered By: Fredi Ellington on 07-31-2022 Eosinophils/100 WBC (Bld) 0.5 % . [facility] Erythrocyte distribution wid th Auto (RBC) [Ratio]Ordered By: Fredi Ellington on 07-31-2022 Erythrocyte distribution width (RBC) [Ratio] 13.2 % 11.9-15.3 [facility] Estimated glomerular filtrat ion rate (GFR) non- AmericanOrdered By: Fredi Ellington on 07-31-2022 GFR/1.73 sq M.predicted among non-blacks MDRD (S/P/Bld) [Vol rate/Area] N/A [facility] Globulin Calc (S) [Mass/Vol] Ordered By: Fredi Ellington on 07-31-2022 Globulin (S) [Mass/Vol] 3.3 g/dL F [facility] Glucose mean value [Mass/vol ume] in Blood Estimated from glycated hemoglobinOrdered By: Fredi Ellington on 07-31-2022 Average glucose Estimated from glycated hemoglobin (Bld) [Mass/Vol] 114 mg/dL [facility] Hematocrit Auto (Bld) [Volum e fraction]Ordered By: Fredi Ellington on 07-31-2022 Hematocrit (Bld) [Volume fraction] 38.5 % 36.0-46.0 [facility] Hemoglobin A1c percentageOrd ered By: Fredi Ellington on 07-31-2022 HbA1c (Bld) [Mass fraction] 5.6 % 4.3-5.6 [facility] Comment on above: Increased risk for d iabetes: 5.7 - 6.4diabetes: >6.4glycemic control for adults with diabetes: <7.0 Hemoglobin [Mass/volume] in BloodOrdered By: Fredi Ellington on 07-31-2022 Hemoglobin (Bld) [Mass/Vol] 12.7 g/dL 12.0-16.0 [facility] Iron [Mass/volume] in Serum or PlasmaOrdered By: Fredi Ellington on 07-31-2022 Iron [Mass/Vol] 74 ug/dL 40-150 [facility] Leukocytes [#/volume] correc gamaliel for nucleated erythrocytes in Blood by Automated counOrdered By: Fredi Ellington on 07-31-2022 WBC corrected for nucl RBC Auto (Bld) [#/Vol] 8.3 10*3/uL 4.5-13.5 [facility] Lymphocytes Auto (Bld) [#/Vo l]Ordered By: Fredi Ellington on 07-31-2022 Lymphocytes (Bld) [#/Vol] 2.3 10*3/uL 1.20-4.8 [facility] Lymphocytes/100 WBC Auto (Bl d)Ordered By: Fredi Ellington on 07-31-2022 Lymphocytes/100 WBC (Bld) 27.9 % . [facility] MCH Auto (RBC) [Entitic mass ]Ordered By: Fredi Ellington on 07-31-2022 MCH (RBC) [Entitic mass] 28.4 pg 25.0-35.0 [facility] MCHC Auto (RBC) [Mass/Vol]Or dered By: Fredi Ellington on 07-31-2022 MCHC (RBC) [Mass/Vol] 32.9 g/dL 31.0-37.0 [facility] MCV Auto (RBC) [Entitic vol] Ordered By: Fredi Ellington on 07-31-2022 MCV (RBC) [Entitic vol] 86.6 fL 78-102 F [facility] Monocytes Auto (Bld) [#/Vol] Ordered By: Fredi Ellington on 07-31-2022 Monocytes (Bld) [#/Vol] 0.4 10*3/uL 0.1-1.00 [facility] Monocytes/100 WBC Auto (Bld) Ordered By: Fredi Ellington on 07-31-2022 Monocytes/100 WBC (Bld) 5.0 % . F [facility] Neutrophils Auto (Bld) [#/Vo l]Ordered By: Fredi Ellington on 07-31-2022 Neutrophils (Bld) [#/Vol] 5.5 10*3/uL 1.2-7.7 [facility] Neutrophils/100 WBC Auto (Bl d)Ordered By: Fredi Ellington on 07-31-2022 Neutrophils/100 WBC (Bld) 66.2 % . [facility] No Panel InformationOrdered By: Fredi Ellington on 07-31-2022 Estimated GFR () N/A [facility] Creatinine Clearance (Chem N/A [facility] Nucleated erythrocytes [Pres ence] in Blood by Automated countOrdered By: Fredi Ellington on 07-31-2022 Nucleated RBC Auto Ql (Bld) 0.1 /100{WBC} 0-0.5 [facility] Platelet mean volume Auto (B ld) [Entitic vol]Ordered By: Fredi Ellington on 07-31-2022 Platelet mean volume (Bld) [Entitic vol] 7.5 fL 6.3-10.7 [facility] Platelets Auto (Bld) [#/Vol] Ordered By: Fredi Ellington on 07-31-2022 Platelets (Bld) [#/Vol] 420 10*3/uL 150-450 [facility] Protein [Mass/volume] in Ser um or PlasmaOrdered By: Fredi Ellington on 07-31-2022 Protein [Mass/Vol] 6.5 g/dL 6.1-7.9 [facility] RBC Auto (Bld) [#/Vol]Ordere d By: Fredi Ellington on 07-31-2022 RBC (Bld) [#/Vol] 4.45 10*6/uL 4.10-5.10 [facility] Serum or plasma alanine lucas otransferase measurement without P-5'-P (enzymatic activiOrdered By: Fredi Ellington on 07-31-2022 ALT No additional P-5'-P [Catalytic activity/Vol] 12 U/L 10-60 [facility] Serum or plasma albumin/glob ulin mass ratioOrdered By: Fredi Ellington on 07-31-2022 Albumin/Globulin [Mass ratio] 1.0 {ratio} [facility] Serum or plasma alkaline rosmery sphatase measurement (enzymatic activity/volume)Ordered By: Fredi Ellington on 07-31-2022 ALP [Catalytic activity/Vol] 49 U/L 32-92 [facility] Serum or plasma anion gap de terminationOrdered By: Fredi Ellington on 07-31-2022 Anion gap [Moles/Vol] 11.2 mmol/L 6.0-15.0 [facility] Serum or plasma aspartate am inotransferase measurement (enzymatic activity/volume)Ordered By: Fredi Ellington on 07-31-2022 AST [Catalytic activity/Vol] 13 U/L 10-42 [facility] Serum or plasma calcium trish urement (mass/volume)Ordered By: Fredi Ellington on 07-31-2022 Calcium [Mass/Vol] 9.2 mg/dL 8.2-10.2 [facility] Serum or plasma chloride klarissa surement (moles/volume)Ordered By: Fredi Ellington on 07-31-2022 Chloride [Moles/Vol] 104 mmol/L 95-114 [facility] Serum or plasma glucose trish urement (mass/volume)Ordered By: Fredi Ellington on 07-31-2022 Glucose [Mass/Vol] 96 mg/dL 70-100 [facility] Comment on above: ADA recommended refe rence rangeRandom Glucose Reference Range is dependent on time and content of last meal. Glucose of more than 200 mg/dL in a nonstressed, ambulatory subject supports the diagnosis of Diabetes Mellitus. Serum or plasma high density lipoprotein (HDL) cholesterol measurementOrdered By: Fredi Ellington on 07-31-2022 Cholesterol in HDL [Mass/Vol] 78 mg/dL 35-85 [facility] Comment on above: HDL CHOL ATP-III CLA SSIFICATION Cardiovascular RiskHDL > or equal to 60 mg/dL LOWHDL < 40 mg/dL HIGH Serum or plasma potassium me asurement (moles/volume)Ordered By: Fredi Ellington on 07-31-2022 Potassium [Moles/Vol] 4.0 mmol/L 3.5-5.1 [facility] Serum or plasma sodium measu rement (moles/volume)Ordered By: Fredi Ellington on 07-31-2022 Sodium [Moles/Vol] 137 mmol/L 138-145 [facility] Serum or plasma total biliru bin measurement (mass/volume)Ordered By: Fredi Ellington on 07-31-2022 Bilirubin [Mass/Vol] 0.5 mg/dL 0.3-1.2 [facility] Serum or plasma total carbon dioxide measurement (moles/volume)Ordered By: Fredi Ellington on 07-31-2022 CO2 [Moles/Vol] 25.8 mmol/L 22.0-30.0 [facility] Serum or plasma total choles terol/high density lipoprotein (HDL) cholesterol mass ratOrdered By: Fredi Ellington on 07-31-2022 Cholesterol.total/Vianey sterol in HDL [Mass ratio] 3.4 {ratio} <5.0 [facility] Serum or plasma urea nitroge n measurement (mass/volume)Ordered By: Fredi Ellington on 07-31-2022 Urea nitrogen [Mass/Vol] 18 mg/dL 9- [facility] TSH DL <= 0.005 mIU/L QnOrde red By: Fredi Ellington on 07-31-2022 TSH Qn 3.47 m[IU]/L 0.45-5.33 [facility] Thyroxine (T4) free [Mass/vo lume] in Serum or PlasmaOrdered By: Fredi Ellington on 07-31-2022 Free T4 [Mass/Vol] 1.03 ng/dL 0.61-1.12 [facility] Triglyceride [Mass/volume] i n Serum or PlasmaOrdered By: Fredi Ellington on 07-31-2022 Triglyceride [Mass/Vol] 89 mg/dL 35-149 [facility] Comment on above: TRIG ATP III CLASSIF ICATIONTRIG less than 150 mg/dL NormalTRIG 150-199 mg/dL Borderline highTRIG 200-500 mg/dL High TRIG greater than 500 mg/dL Very highStandard traceable to the Center for Disease Conrtrol and Prevention (CDC) test method. WBC Auto (Bld) [#/Vol]Ordere d By: Fredi Ellington on 07-31-2022 WBC (Bld) [#/Vol] 8.3 10*3/uL 4.5-13.5 [facility] Covid-19 PCR (CVDTB)on 07-04 SARS-CoV-2 (COVID-19) RNA CHRISTIAN+probe Ql (Unsp spec) Not detected Normal NOT DETECTED [facility] Comment on above: Result Comment: [...] for this test is supported by the [place] of Health and Human Service's declaration that [...] used). Performed By: #### C VDTB #### [facility] [address] [place] [address] Dr. Tara Jackson INFLUENZA A AND B AGon 07-23 INFLUENZA A AG Negative Normal NEGATIVE SEE COMMENT [facility] Comment on above: Performed By: #### I NFLUAB #### [facility] [address] [place] [address] Dr. Tara Jackson INFLUENZA B AG Negative Normal NEGATIVE SEE COMMENT [facility] Comment on above: Performed By: #### I NFLUAB #### [facility] [address] [address] [address] Tara Jackson INTERNAL CONTROLS Within Normal Limits Normal Wi thin Normal Limits [facility] Comment on above: Performed By: #### I NFLUAB #### [facility] [address] [place] [address] Dr. Tara Jackson RSVon 07-23-2022 RSV AG Negative Normal NEGATIVE [facility] Comment on above: Performed By: #### R SV #### [facility] [address] [place] [address] Dr. Tara Jackson CHEMISTRYOrdered By: SYSTEM SYSTEM [...] 10 - 20 [facility] Remisol Covid-19 PCR ([facility])on SARS-CoV-2 (COVID-19) RNA CHRISTIAN+probe Ql (Unsp spec) Not detected Normal NOT DETECTED [facility] Comment on above: Result Comment: This test is not yet approved or cleared by the [place] FDA. When there are no FDA-approved or cleared tests available, and other criteria are met, FDA can make tests available under an emergency access mechanism called an Emergency Use Authorization (EUA). The EUA for this test is supported by the Developmental Therapist of Health and Human Service's (HHS's) declaration [...] consistent with SARS-CoV-2. Performed By: #### C [facility] #### [facility] [address] [place] [address] Dr. Tara Jackson HEMATOLOGYOrdered By: SYSTEM SYSTEM [...] AGon 07-08 INFLUANEGH SEE BELOW Normal [facility] Comment on above: Result Comment: Nega tive for Flu A protein angiten. Infection due to Flu A cannot be ruled out. Flu A angiten in the sample may be below the detection limit of the test. Performed By: #### I NFLUAB #### [facility] [address] [place] [address] Dr. Tara Jackson [facility] SEE BELOW Normal [facility] Comment on above: Result Comment: Nega tive for Flu B protein antigen. Infection due to Flu B cannot be ruled out. Flu B antigen in the sample may be below the detection limit of the test. Performed By: #### I NFLUAB #### [facility] [address] [place] [address] Dr. Tara Jackson INFLUENZA A AG Negative Normal NEGATIVE SEE COMMENT [facility] Comment on above: Performed By: #### I NFLUAB #### [facility] [address] [place] [address] Dr. Tara Jackson INFLUENZA B AG Negative Normal NEGATIVE SEE COMMENT [facility] Comment on above: Performed By: #### I NFLUAB #### [facility] [address] [place] [address] Dr. Tara Jackson INTERNAL CONTROLS Within Normal Limits Normal Wi thin Normal Limits [facility] Comment on above: Performed By: #### I NFLUAB #### [facility] [address] [place] [address] Dr. Tara Jackson MICRO OTHER TESTSOrdered By: [...] PM) Normal Negative [facility] UA Auto SS [place].plasma/[place]. RBC (Bld) [Mass ratio] 0-3 /HPF Normal 0-3/HPF [facility] UA Auto SS Nitrite Ql (U) Negative (07/08/22 8:50 PM) Normal Negative [facility] UA Auto SS pH (U) 6.5 *NA* (07/08/22 8:50 PM) Invalid Interpretation Code 5.0 - 9.0 [facility] UA Auto SS Protein (U) [Mass/Vol] Negative (07/08/22 8:50 PM) Normal Negative [facility] UA Auto SS Specific gravity (U) [Rel density] 1.015 *NA* (07/08/22 8:50 PM) Invalid Interpretation Code 1.005 - 1.030 [facility] UA Auto SS UA Spec Desc Clean Catch (07/08/22 8:50 PM) Normal [facility] UA Auto SS Urobilinogen Qn (U) [id number] {Ed'U}/dL Normal 0.0 - 1.0 EU/dL [facility] UA Auto SS WBC Auto Ql (U) Negative (07/08/22 8:50 PM) Normal Negative [facility] UA Auto SS WBC LM.HPF (Urine sed) [#/Area] 0-5 /HPF Normal 0-5/HPF [facility] UA Auto SS CHEMISTRYOrdered By: SYSTEM SYSTEM on 07-02-2022 Anion gap [Moles/Vol] 10 mmol/L Normal 6 - 16 mEq/L [facility] Remisol Calcium [Mass/Vol] 8.7 mg/dL Low 8.9 - 11. 1 mg/dL [facility]isol Chloride [Moles/Vol] 100 mmol/L Low 101 - 1 11 mmol/L [facility] Remisol CO2 [Moles/Vol] 26 mmol/L Normal 21 - 31 mmol/L [facility] Remisol Creatinine [Mass/Vol] 0.6 mg/dL Normal 0.5 - 1.3 mg/dL [facility] Remisol Glucose [Mass/Vol] 96 mg/dL Normal 55 - 199 mg/dL [facility] Remisol Potassium [Moles/Vol] 4.0 mmol/L Normal 3.5 - 5.3 mmol/L [facility] Remisol Sodium [Moles/Vol] 132 mmol/L Low 135 - 145 mmol/L [facility] Remisol Urea nitrogen [Mass/Vol] 14 mg/dL Normal 5 - 21 mg/dL [facility] Remisol Urea nitrogen/Creatinine [Mass ratio] 23 mg/mg High 10 - 20 [facility] Remisol CHEMISTRYOrdered By: Lab ROP User on 07-02-2022 Glucose [Mass/Vol] 100 mg/dL High 55 - 99 mg/dL [facility] POC Subsection Comment on above: Result Comment: Shanique percy Meter POC Device SN [id number] Invalid Interpretation Code [facility] POC Subsection POC User ID [id number] Invalid Interpretation Code [facility] POC Subsection POC Username [email or web address] Invalid Interpretation Code [facility] POC Subsection HEMATOLOGYOrdered By: SYSTEM [...] 7.1 fL Normal 6.0 - 9.5 fL [facility] HemeAutoSS Platelets (Bld) [#/Vol] 303.0 E9/L Normal 150. 0 - 450.0 E9/L [facility] HemeAutoSS RBC (Bld) [#/Vol] 4.3 E12/L Normal 4.1 - 5.3 E12/L [facility] HemeAutoSS WBC corrected for nucl RBC Auto (Bld) [#/Vol] 11.5 E9/L High 4.0 - 10.5 E9/L [facility] HemeAutoSS IN[facility]ENZA A AND B [facility] Normal [facility] Comment on above: Result Comment: Nega tive for Flu A protein angiten. Infection due to Flu A cannot be ruled out. Flu A angiten in the sample may be below the detection limit of the test. Performed By: #### [facility] #### [facility] [address] [place] [address] Dr. Tara Jackson INFLUBNEGH SEE BELOW Normal [facility] Comment on above: Result Comment: Nega tive for Flu B protein antigen. Infection due to Flu B cannot be ruled out. Flu B antigen in the sample may be below the detection limit of the test. Performed By: #### C VDTBH #### [facility] [address] [place] [address] Dr. Tara Jackson INFLUENZA A AG Negative Normal NEGATIVE SEE COMMENT [facility] Comment on above: Performed By: #### C VDTBH #### [facility] [address] [place] [address] Dr. Tara Jackson INFLUENZA B AG Negative Normal NEGATIVE SEE COMMENT [facility] Comment on above: Performed By: #### C VDTBH #### [facility] [address] [place] [address] Dr. Tara Jackson INTERNAL CONTROLS Within Normal Limits Normal Wi thin Normal Limits [facility] Comment on above: Performed By: #### C VDTBH #### [facility] [address] [place] [address] Dr. Tara Jackson Covid-19 PCR ([facility])on 06-03 SARS-CoV-2 (COVID-19) RNA CHRISTIAN+probe Ql (Unsp spec) Not detected Normal NOT DETECTED [facility] Comment on above: Result Comment: This test is not yet approved or cleared by the [place] FDA. When there are no FDA-approved or cleared tests available, and other criteria are met, FDA can make tests available under an emergency access mechanism called an Emergency Use Authorization (EUA). The EUA for this test is supported by the Developmental Therapist of Health and Human Service's (HHS's) declaration [...] By: #### I NFLUAB #### [facility] [address] [place] [address] Dr. Tara Jackson Covid-19 PCR ([facility])on 05-04 SARS-CoV-2 (COVID-19) RNA CHRISTIAN+probe Ql (Unsp spec) Not detected Normal NOT DETECTED [facility] Comment on above: Result Comment: This test is not yet approved or cleared by the [place] FDA. When there are no FDA-approved or cleared tests available, and other criteria are met, FDA can make tests available under an emergency access mechanism called an Emergency Use Authorization (EUA). The EUA for this test is supported by the [place] of Health and Human Service's (HHS's) declaration [...] By: #### I NFLUAB #### [facility] [address] [place] [address] Dr. Tara Jackson AMYLASEon 04-26-2022 Amylase [Catalytic activity/Vol] 17 U/L Critically low 25-115 [facility] Comment on above: Performed By: #### I NFLUAB #### [facility] [address] [place] [address] Dr. Tara Jackson CBC AUTO DIFFon 04-26-2022 BASO # 0.0 103/ul Normal 0.0-0.1 [facility] Comment on above: Performed By: #### C VDTBH #### [facility] [address] [place] [address] Dr. Tara Jackson Basophils/100 WBC (Bld) 0.7 % Normal 0.2-2.0 [facility] Comment on above: Performed By: #### C VDTBH #### [facility] [address] [place] [address] Dr. Tara Jackson EO # 0.3 103/ul Normal 0.0-0.7 [facility] Comment on above: Performed By: #### C VDTBH #### [facility] [address] [place] [address] Dr. Tara Jackson Eosinophils/100 WBC (Bld) 5.1 % Normal 0.9-7.0 [facility] Comment on above: Performed By: #### C VDTBH #### [facility] [address] [place] [address] Dr. Tara Jackson Erythrocyte distribution width (RBC) [Ratio] 13.5 % Normal 11.0-15.0 [facility] Comment on above: Performed By: #### C VDTBH #### [facility] [address] [place] [address] Dr. Tara Jackson Hematocrit (Bld) [Volume fraction] 37.9 % Normal 36.0-48.0 [facility] Comment on above: Performed By: #### C VDTBH #### [facility] [address] [place] [address] Dr. Tara Jackson Hemoglobin (Bld) [Mass/Vol] 12.4 g/dL Normal 12.0-16.0 [facility] Comment on above: Performed By: #### C VDTBH #### [facility] [address] [place] [address] Dr. Tara Jackson IG # 0.01 10e3/ul Normal 0.00-0.03 [facility] Comment on above: Performed By: #### C VDTBH #### [facility] [address] [place] [address] Dr. Tara Jackson IG % 0.2 % Normal 0.0-0.5 [facility] Comment on above: Performed By: #### C VDTBH #### [facility] [address] [place] [address] Dr. Tara Jackson LYMPH # 1.6 103/ul Normal 1.2-3.8 [facility] Comment on above: Performed By: #### C VDTBH #### [facility] [address] [place] [address] Dr. Tara Jackson Lymphocytes/100 WBC (Bld) 28.8 % Normal 20.5-60.0 [facility] Comment on above: Performed By: #### C VDTBH #### [facility] [address] [place] [address] Dr. Tara Jackson MANUAL DIFF REQ NO Normal [facility] Comment on above: Performed By: #### C VDTBH #### [facility] [address] [place] [address] Dr. Tara Jackson MCH (RBC) [Entitic mass] 28.1 pg Normal 26.7-34.0 [facility] Comment on above: Performed By: #### C VDTBH #### [facility] [address] [place] [address] Dr. Tara Jackson MCHC (RBC) [Mass/Vol] 32.7 g/dL Normal 29.9-35.2 [facility] Comment on above: Performed By: #### C VDTBH #### [facility] [address] [place] [address] Dr. Tara Jackson MCV (RBC) [Entitic vol] 85.7 fL Normal 79.1-95.6 [facility] Comment on above: Performed By: #### C VDTBH #### [facility] [address] [place] [address] Dr. Tara Jackson MONO # 0.3 103/ul Normal 0.3-0.8 [facility] Comment on above: Performed By: #### C VDTBH #### [facility] [address] [place] [address] Dr. Tara Jackson Monocytes/100 WBC (Bld) 6.2 % Normal 1.7-12.0 [facility] Comment on above: Performed By: #### C VDTBH #### [facility] [address] [place] [address] Dr. Tara Jackson NEUT # 3.2 103/ul Normal 1.4-6.5 [facility] Comment on above: Performed By: #### C VDTBH #### [facility] [address] [place] [address] Dr. Tara Jackson Neutrophils/100 WBC (Bld) 59.0 % Normal 43.0-75.0 [facility] Comment on above: Performed By: #### C VDTBH #### [facility] [address] [place] [address] Dr. Tara Jackson Platelet mean volume (Bld) [Entitic vol] 9.7 fL Normal 9.5-13.5 [facility] Comment on above: Performed By: #### C VDTBH #### [facility] [address] [place] [address] Dr. Tara Jackson PLT 382 103/ul Normal 150-450 [facility] Comment on above: Performed By: #### C VDTBH #### [facility] [address] [place] [address] Dr. Tara Jackson RBC 4.42 106/ul Normal 3.40-5.30 [facility] Comment on above: Performed By: #### C VDTBH #### [facility] [address] [place] [address] Dr. Tara Jackson WBC 5.5 103/ul Normal 4.0-11.0 [facility] Comment on above: Performed By: #### C VDTBH #### [facility] [address] [place] [address] Dr. Tara Jackson IRONon 04-26-2022 Iron [Mass/Vol] 55.0 ug/dL Normal 50.0-170.0 [facility] Comment on above: Performed By: #### C VDTBH #### [facility] [address] [place] [address] Dr. Tara Jackson LIPASEon 04-26-2022 Lipase [Catalytic activity/Vol] 191.0 U/L Normal 73.0-393.0 [facility] Comment on above: Performed By: #### I NFLUAB #### [facility] [address] [place] [address] Dr. Tara Jackson PREG QUANT HCGon 04-26-2022 HCG QUANT <1 Normal [facility] Comment on above: Performed By: #### I NFLUAB #### [facility] [address] [place] [address] Dr. Tara Jackson HCG RANGE SEE BELOW Normal [facility] Comment on above: Result Comment: 5-50 0.2-1 WEEK 50-500 1-2 WEEKS 100-5,000 2-3 WEEKS 500-10,000 3-4 WEEKS 1,000-50,000 4-5 WEEKS 10,000-100,000 5-6 WEEKS 15,000-200,000 6-8 WEEKS 10,000-100,000 2-3 MONTHS Performed By: #### I NFLUAB #### [facility] [address] [place] [address] Dr. Tara Jackson PROF 14(COMP METB)on 022 Albumin [Mass/Vol] 3.0 g/dL Critically low 3.4-5.0 [facility] Comment on above: Performed By: #### I NFLUAB #### [facility] [address] [place] [address] Dr. Tara Jackson Albumin/Globulin [Mass ratio] 0.7 {ratio} Normal [facility] Comment on above: Performed By: #### I NFLUAB #### [facility] [address] [place] [address] Dr. Tara Jackson ALP [Catalytic activity/Vol] 58 U/L Critically low 65-260 [facility] Comment on above: Performed By: #### I NFLUAB #### [facility] [address] [place] [address] Dr. Tara Jackson ALT [Catalytic activity/Vol] 19 U/L Normal 14-59 [facility] Comment on above: Performed By: #### I NFLUAB #### [facility] [address] [place] [address] Dr. Tara Jackson Anion gap [Moles/Vol] 11.1 mmol/L Normal [facility] Comment on above: Performed By: #### I NFLUAB #### [facility] [address] [address] [address] Tara Jackson AST [Catalytic activity/Vol] 13 U/L Critically low 15-37 [facility] Comment on above: Performed By: #### I NFLUAB #### [facility] [address] [address] [address] Tara Jackson Bilirubin [Mass/Vol] 0.3 mg/dL Normal 0.2-1.0 [facility] Comment on above: Performed By: #### I NFLUAB #### [facility] [address] [place] [address] Dr. Tara Jackson Calcium [Mass/Vol] 8.7 mg/dL Normal 8.5-10.1 [facility] Comment on above: Performed By: #### I NFLUAB #### [facility] [address] [place] [address] Dr. Tara Jackson Chloride [Moles/Vol] 103 mmol/L Normal 98-107 [facility] Comment on above: Performed By: #### I NFLUAB #### [facility] [address] [place] [address] Dr. Tara Jackson CO2 [Moles/Vol] 25.0 mmol/L Normal 21.0-32.0 [facility] Comment on above: Performed By: #### I NFLUAB #### [facility] [address] [place] [address] Dr. Tara Jackson Creatinine [Mass/Vol] 0.88 mg/dL Normal 0.55-1.02 [facility] Comment on above: Performed By: #### I NFLUAB #### [facility] [address] [place] [address] Dr. Tara Jackson Globulin (S) [Mass/Vol] 4.6 g/dL Normal T [facility] Comment on above: Performed By: #### I NFLUAB #### [facility] [address] [place] [address] Dr. Tara Jackson Glucose [Mass/Vol] 91 mg/dL Normal 74-106 [facility] Comment on above: Performed By: #### I NFLUAB #### [facility] [address] [address] [address] Tara Jackson Potassium [Moles/Vol] 4.1 mmol/L Normal 3.5-5.1 [facility] Comment on above: Performed By: #### I NFLUAB #### [facility] [address] [address] [address] Tara Jackson Protein [Mass/Vol] 7.6 g/dL Normal 6.4-8.2 [facility] Comment on above: Performed By: #### I NFLUAB #### [facility] [address] [address] [address] Tara Jackson Sodium [Moles/Vol] 135 mmol/L Critically low 136-[address] [facility] Comment on above: Performed By: #### I NFLUAB #### [facility] [address] [place] [address] Dr. Tara Jackson Urea nitrogen [Mass/Vol] 9.0 mg/dL Normal 6.4-19.3 [facility] Comment on above: Performed By: #### I NFLUAB #### [facility] [address] [address] [address] Tara Jackson Urea nitrogen/Creatinine [Mass ratio] 10.2 mg/mg Normal [facility] Comment on above: Performed By: #### I NFLUAB #### [facility] [address] [place] [address] Dr. Tara Jackson CHEMISTRYOrdered By: SYSTEM SYSTEM [...] Triglyceride [Mass/Vol] 101 mg/dL Normal <=149mg/dL [facility] Remisol CHEMISTRYOrdered By: Valeriy Rivas on 04-04-2022 HbA1c (Bld) [Mass fraction] 5.3 % Normal <=5.9% [facility] ChemAutoSS Covid-19 PCR (CVDTB)on 03-03 SARS-CoV-2 (COVID-19) RNA CHRISTIAN+probe Ql (Unsp spec) Not detected Normal NOT DETECTED [facility] Comment on above: Result Comment: This test is not yet approved or cleared by the [place] FDA. When there are no FDA-approved or cleared tests available, and other criteria are met, FDA can make tests available under an emergency access mechanism called an Emergency Use Authorization (EUA). The EUA for this test is supported by the Developmental Therapist of Health and Human Service's (HHS's) declaration [...] By: #### I NFLUAB #### [facility] [address] [place] [address] Dr. Tara Jackson Covid-19 PCR (CVDTB)on SARS-CoV-2 (COVID-19) RNA CHRISTIAN+probe Ql (Unsp spec) Not detected Normal NOT DETECTED [facility] Comment on above: Result Comment: This test is not yet approved or cleared by the [place] FDA. When there are no FDA-approved or cleared tests available, and other criteria are met, FDA can make tests available under an emergency access mechanism called an Emergency Use Authorization (EUA). The EUA for this test is supported by the [place] of Health and Human Service's (HHS's) declaration [...] By: #### I NFLUAB #### [facility] [address] [address] [address] Tara Jackson [facility]01 SARS-CoV-2 (COVID-19) RNA CHRISTIAN+probe Ql (Unsp spec) Not detected Normal NOT DETECTED [facility] Comment on above: Result Comment: This test is not yet approved or cleared by the [place] FDA. When there are no FDA-approved or cleared tests available, and other criteria are met, FDA can make tests available under an emergency access mechanism called an Emergency Use Authorization (EUA). The EUA for this test is supported by the [place] of Health and Human Service's (HHS's) declaration [...] By: #### I NFLUAB #### [facility] [address] [place], [place] [address] Dr. Tara Jackson SYMPTOMATIC COVID-19 ANTIGEN on 01-17-2022 EUA Statement SEE BELOW Normal [facility] Comment on above: Result Comment: [...] By: #### C VDAGS #### [facility] [address] [place] [address] Dr. Tara Jackson SARS-CoV-2 (COVID-19) RNA CHRISTIAN+probe Ql (Unsp spec) Negative Normal NEGATIVE [facility] Comment on above: Performed By: #### C VDAGS #### [facility] [address] [place] [address] Dr. Tara Jackson CHEMISTRYOrdered By: SYSTEM SYSTEM [...] 86.3 fL Normal 78.0 - 95.0 fL [facility] HemeAutoSS Platelet mean volume (Bld) [Entitic vol] 7.7 fL Normal 6.0 - 9.5 fL FT HemeAutoSS Platelets (Bld) [#/Vol] 382.0 E9/L Normal 150. 0 - 450.0 E9/L FT HemeAutoSS RBC (Bld) [#/Vol] 4.4 E12/L Normal 4.1 - 5.3 E12/L FT HemeAutoSS WBC corrected for nucl RBC Auto (Bld) [#/Vol] 6.5 E9/L Normal 4.0 - 10.5 E9/L FT HemeAutoSS MICRO OTHER TESTSOrdered By: Debby Cleveland on 12-04-2021 Rapid COV Int NEG Ctl Pass (12/04/21 11:18 PM) Normal [facility] Man Sero Rapid COV Int POS Ctl Pass (12/04/21 11:18 PM) Normal [facility] Sero SARS-CoV+SARS-CoV-2 (COVID-19) Ag IA.rapid Ql (Resp) Not Detected (12/04/21 11:18 PM) Normal Not Detected [facility] Man Sero SEROLOGYOrdered By: Debby Cleveland on 12-04-2021 Beta hCG Ql Negative (12/04/21 6:06 PM) Normal [facility] Sero Peds Pulmonary Medicine- Off ice Visiton [...] only phone number listed in the computer ([phone]) went straight to the mother's voicemail and it was not taking messages. Called back and requested to call another number - [phone] Today (10/24/2019) I did a telephone conference [...] update: no changes 1 Refills: yes Pharmacy: [facility] in [place] PCP: same 1 Amended By: Martina Bedolla; [...] ONCE DAILY Ibuprofen 800 MG Oral Tablet June FE 08/22 1-20 MG-MCG Oral Tablet QUEtiapine [...] moderate persistent; YANNA = N; Sent To: [facility]/PHARMACY #[id number] Asthma, moderate persistent, Chronic cough Renew: Cetirizine HCl - 10 MG Oral Tablet; TAKE 1 TABLET BY MOUTH DAILY Rx By: Martina Bedolla; Dispense: 0 Days ; #:1 X 30 Tablet Bottle; Refill: 3; For: Asthma, moderate persistent, Chronic cough; YANNA = N; Sent To: [facility]/PHARMACY #[id number] Non-allergic rhinitis Renew: Fluticasone Propionate 50 MCG/ACT Nasal Suspension; USE 2 SPRAYS IN EACH NOSTRIL ONCE DAILY Rx By: Martina Bedolla; Dispense: 0 Days ; #:1 X 16 GM Bottle; Refill: 6; For: Non-allergic rhinitis; YANNA = N; Sent To: [facility]/PHARMACY #[id number] Signatures Electronically signed by : Martina Bedolla [...] or you have questions about the plan ([phone]). Please call us if you are having [...] Behavior appropriate for age. Results/Data Asthma Action [id number] 01:32PMartina Barron Test NameResultFlagReference See Scanned DocumetSee Scanned Document Summary / No summary entered : No summary entered Documents attached : [facility] Action Plan - Martina Bedolla; Enc: [id number] - Appointment - Martina Bedolla - (Pediatric Pulmonology) (Result Document) Spirometry loops personally reviewed. Test done today shows: rejected Orders Asthma, moderate persistent Renew: Dulera 200-5 MCG/ACT Inhalation Aerosol; Inhale 2 puffs twice daily with a spacer Rx By: Martina Bedolla; Dispense: 0 Days ; #:1 X 13 GM Inhaler; Refill: 6;For: Asthma, moderate persistent; YANNA = N; Verified Transmission to [facility]/PHARMACY #[id number]; Last Updated By: [employer]; 05/30/2019 3:29:40 PM Renew: Ventolin HFA 108 (90 Base) MCG/ACT Inhalation Aerosol Solution; Inhale 2-4 puffs every 4-6 hours as needed for cough, wheezing and shortness of breath and prior to exercise Rx By: Martina Bedolla; Dispense: 0 Days ; #:1 X 18 GM Inhaler; Refill: 6;For: Asthma, moderate persistent; YANNA = N; Verified Transmission to [facility]/PHARMACY #[id number]; Last Updated By: System, [facility]; 05/30/2019 3:29:35 PM Attending Note Attestation: Comments/Additional [...] Jun 01 2019 11:38PM EST (Author) Normal [facility] Peds Pulmonary Medicine- Off ice Visiton 02-13-2019 [...] or you have questions about the plan ([phone]). Please call us if you are having [...] ONCE DAILY Ibuprofen 800 MG Oral Tablet June FE 08/22 1-20 MG-MCG Oral Tablet QUEtiapine [...] Plan; Status:Complete; Done: 26Jan2019 02:00PM Performed:In Office; Due:[id number]; Last Updated By:Monica Rowan; 01/26/2019 2:00:50 PM;Ordered; [...] Feb 13 2019 6:39PM EST (Author) Normal [facility] Peds Pulmonary Medicine- Off ice Visiton 11-24-2018 [...] persistent; YANNA = N; Verified Transmission to [facility]/PHARMACY #[id number]; Last Updated By: Duarte Orta; 01/25/2018 [...] SPRAYS IN EACH NOSTRIL ONCE DAILY; Therapy: [id number] to (Last Rx:02Sep2018) Requested for: 02Sep2018 Ordered Rx By: Martina Bedolla; Dispense: 0 Days ; #:1 X 16 GM Bottle; Refill: 5;For: Non-allergic rhinitis; YANNA = N; Print Rx Ibuprofen 800 MG Oral Tablet; Therapy: 26Jan2018 to Recorded Dispense: 20 Days ; #:60; Refill: 0; YANNA = N; Record; Last Updated By: Arminda Linda; 03/18/2018 2:27:47 PM 08/22 1-20 MG-MCG Oral Tablet; Therapy: [id number] to Recorded Dispense: 28 Days ; #:28; Refill: 0; YANNA = N; Record; Last Updated By: Arminda Linda; 03/18/2018 2:27:47 PM QUEtiapine Fumarate 200 MG Oral Tablet; TAKE 1 TABLET EVERY DAY AT BEDTIME; Therapy: [id number] to Recorded Rx By: PAZ; Dispense: 30 Days ; #:30; Refill: 0; YANNA = N; Record; Last Updated By: Martina Bedolla; 01/25/2018 2:11:18 PM Vitals Vital Signs Recorded: 29Oct2018 09:33AM Heart Rate78 Eslxqaosfaa66 Ogaazaig037 Mszbyzbui35 Gzhsdh211 cm 2-20 Stature Htrwwugcny57 % Oopgtw13 kg 2-20 Weight Xvczgncujr49 % BMI Zjyzljeapp24.84 BMI Ksvvbhqaeu56 % BSA Calculated1.71 O2 Ngrvyocisq03 Physical Exam Constitutional: awake, alert and cooperative. [...] persistent; YANNA = N; Verified Transmission to [facility] #[id number]; Last Updated By: Duarte [...] or you have questions about the plan ([phone]). Please call us if you are having [...] date of service which is 10/29/2018. Normal [facility] Vital Signs Date Time Vital Sign Value Performing Clinician Facility 03-21-2025 11:21-0400 Body mass index (BMI) [Ratio] 41.5 kg/m2 Ranjit Zamudio DO Work Phone: [facility] 03-21-2025 11:21-0400 Body weight 116.63 kg Ranjit Robb DO Work Phone: [facility] 03-21-2025 11:21-0400 Diastolic blood pressure 86 mm[Hg] Ranjit Robb DO Work Phone: [facility] 03-21-2025 11:21-0400 Systolic blood pressure 138 mm[Hg] Ranjit Robb DO Work Phone: [facility] 03-15-2025 11:02-0400 Body mass index (BMI) [Ratio] 41.77 kg/m2 Ranjit Robb DO Work Phone: [facility] 03-15-2025 11:02-0400 Body weight 117.39 kg Ranjit Robb DO Work Phone: [facility] 03-15-2025 11:02-0400 Diastolic blood pressure 78 mm[Hg] Ranjit Robb DO Work Phone: [facility] 03-15-2025 11:02-0400 Systolic blood pressure 120 mm[Hg] Ranjit Robb DO Work Phone: [facility] 03-09-2025 09:39-0400 Body mass index (BMI) [Ratio] 41.64 kg/m2 Martina Arrington PA Work Phone: [facility] 03-09-2025 09:39-0400 Body weight 117.03 kg Martina Nury PA Work Phone: [facility] 03-09-2025 09:39-0400 Diastolic blood pressure 72 mm[Hg] Martina Tampa PA Work Phone: [facility] 03-09-2025 09:39-0400 Systolic blood pressure 120 mm[Hg] Martina Tampa PA Work Phone: [facility] 03-02-2025 11:19-0400 Body mass index (BMI) [Ratio] 41 kg/m2 Martina Tampa PA Work Phone: [facility] 03-02-2025 11:19-0400 Body weight 115.21 kg Martina Nury PA Work Phone: [facility] 03-02-2025 11:19-0400 Diastolic blood pressure 72 mm[Hg] Martina Nury PA Work Phone: [facility] 03-02-2025 11:19-0400 Systolic blood pressure 116 mm[Hg] Martina Tampa PA Work Phone: [facility] 02-23-2025 09:32-0400 Body mass index (BMI) [Ratio] 40.74 kg/m2 Ranjit Robb DO Work Phone: [facility] 02-23-2025 09:32-0400 Body weight 114.49 kg Ranjit Robb DO Work Phone: [facility] 02-23-2025 09:32-0400 Diastolic blood pressure 72 mm[Hg] Ranjit Robb DO Work Phone: [facility] 02-23-2025 09:32-0400 Systolic blood pressure 118 mm[Hg] Ranjit Robb DO Work Phone: [facility] 02-16-2025 12:06-0400 Body mass index (BMI) [Ratio] 39.87 kg/m2 Martina Nury PA Work Phone: [facility] 02-16-2025 12:06-0400 Body weight 112.04 kg Martina Nury PA Work Phone: [facility] 02-16-2025 12:06-0400 Diastolic blood pressure 76 mm[Hg] Martina Nury PA Work Phone: [facility] 02-16-2025 12:06-0400 Systolic blood pressure 108 mm[Hg] Martina Nury PA Work Phone: [facility] 02-01-2025 13:50-0400 Body mass index (BMI) [Ratio] 39.62 kg/m2 Ranjit Robb DO Work Phone: [facility] 02-01-2025 13:50-0400 Body weight 111.36 kg Ranjit Robb DO Work Phone: [facility] 02-01-2025 13:50-0400 Diastolic blood pressure 80 mm[Hg] Ranjit Robb DO Work Phone: [facility] 02-01-2025 13:50-0400 Systolic blood pressure 120 mm[Hg] Ranjit Robb DO Work Phone: [facility] 01-18-2025 14:57-0400 Body mass index (BMI) [Ratio] 39.77 kg/m2 Martina Arrington PA Work Phone: [facility] 01-18-2025 14:57-0400 Body weight 111.75 kg Martina Nury PA Work Phone: [facility] 01-18-2025 14:57-0400 Diastolic blood pressure 76 mm[Hg] Martina Arrington PA Work Phone: [facility] 01-18-2025 14:57-0400 Systolic blood pressure 110 mm[Hg] Martina Arrington PA Work Phone: [facility] 12-28-2024 14:40-0400 Body mass index (BMI) [Ratio] 39.87 kg/m2 Ranjit Robb DO Work Phone: [facility] 12-28-2024 14:40-0400 Body weight 112.04 kg Ranjit Robb DO Work Phone: [facility] 12-28-2024 14:40-0400 Diastolic blood pressure 80 mm[Hg] Ranjit Robb DO Work Phone: [facility] 12-28-2024 14:40-0400 Systolic blood pressure 108 mm[Hg] Ranjit Robb DO Work Phone: [facility] 11-30-2024 14:33-0400 Body mass index (BMI) [Ratio] 39.09 kg/m2 Ranjit Robb DO Work Phone: [facility] 11-30-2024 14:33-0400 Body weight 109.86 kg Ranjit Robb DO Work Phone: [facility] 11-30-2024 14:33-0400 Diastolic blood pressure 70 mm[Hg] Ranjit Robb DO Work Phone: [facility] 11-30-2024 14:33-0400 Systolic blood pressure 100 mm[Hg] Ranjit Robb DO Work Phone: [facility] 11-09-2024 12:56-0400 Body mass index (BMI) [Ratio] 39.4 kg/m2 Ranjit Robb DO Work Phone: [facility] 11-09-2024 12:56-0400 Body weight 110.73 kg Ranjit Robb DO Work Phone: [facility] 11-09-2024 12:56-0400 Diastolic blood pressure 70 mm[Hg] Ranjit Robb DO Work Phone: [facility] 11-09-2024 12:56-0400 Systolic blood pressure 110 mm[Hg] Ranjit Robb DO Work Phone: [facility] 11-08-2024 18:00-0400 Heart rate 70 /min Radha Whipple [facility] 11-08-2024 18:00-0400 Diastolic blood pressure 64 mm[Hg] Radha Chaparroe [facility] 11-08-2024 18:00-0400 Mean blood pressure 82 mm[Hg] Radha Chaparroe [facility] 11-08-2024 18:00-0400 Respiratory rate 20 /min Radha Chaparroe [facility] 11-08-2024 18:00-0400 Systolic blood pressure 117 mm[Hg] Radha Chaparroe [facility] 11-08-2024 17:00-0400 SaO2% (BldA) [Mass fraction] 96 % Radha Chaparroe [facility] 11-08-2024 17:00-0400 Heart rate 88 /min Radha Whipple [facility] 11-08-2024 17:00-0400 Diastolic blood pressure 74 mm[Hg] Radha Chaparroe [facility] 11-08-2024 17:00-0400 Mean blood pressure 89 mm[Hg] Radha Chaparroe [facility] 11-08-2024 17:00-0400 Systolic blood pressure 119 mm[Hg] Radha Chaparroe [facility] 11-08-2024 16:13-0400 Body temperature 97.52 [degF] Radha Whipple [facility] 11-08-2024 16:13-0400 bodymassindex 2.07 kg/m2 Radha Chaparroe [facility] Comment on above: Result Comment: ^~:!ZScore [facility] 11-08-2024 16:13-0400 Diastolic blood pressure 90 mm[Hg] Radha Whipple [facility] 11-08-2024 16:13-0400 Heart rate 100 /min Radha Chaparroe [facility] 11-08-2024 16:13-0400 Height/Length Percentile 84.91 1 Radha Whipple [facility] Comment on above: Result Comment: ^~:!Percentile Source -[facility] 11-08-2024 16:13-0400 Height/Length Z-Score 1.03 1 Radha Whipple [facility] Comment on above: Result Comment: ^~:!ZScore Source [facility] 11-08-2024 16:13-0400 Respiratory rate 18 /min Radha Chaparroe [facility] 11-08-2024 16:13-0400 SaO2% (BldA) [Mass fraction] 96 % Radha Chaparroe [facility] 11-08-2024 16:13-0400 Systolic blood pressure 146 mm[Hg] Radha Whipple [facility] 11-08-2024 16:13-0400 weight 2.48 1 Radha Whipple [facility] Comment on above: Result Comment: ^~:!ZScore Source -[facility] 11-08-2024 16:13-0400 Weight Percentile 99.34 % Radha Whipple [facility] Comment on above: Result Comment: ^~:!Percentile Source -[facility] 11-02-2024 15:22-0400 Body mass index (BMI) [Ratio] 39.46 kg/m2 Martina Arrington PA Work Phone: [facility] 11-02-2024 15:22-0400 Body weight 110.9 kg Martina Tampa PA Work Phone: [facility] 11-02-2024 15:22-0400 Diastolic blood pressure 72 mm[Hg] Martina Nury PA Work Phone: [facility] 11-02-2024 15:22-0400 Systolic blood pressure 108 mm[Hg] Martina Nury PA Work Phone: [facility] 09-26-2024 10:41-0500 Body mass index (BMI) [Ratio] 39.54 kg/m2 Ranjit Robb DO Work Phone: [facility] 09-26-2024 10:41-0500 Body weight 111.13 kg Ranjit Robb DO Work Phone: [facility] 09-26-2024 10:41-0500 Diastolic blood pressure 60 mm[Hg] Ranjit Robb DO Work Phone: [facility] 09-26-2024 10:41-0500 Systolic blood pressure 100 mm[Hg] Ranjit Robb DO Work Phone: [facility] 09-09-2024 14:06-0500 Diastolic blood pressure 62 mm[Hg] Fredi Ellington MD Work Phone: [facility] 09-09-2024 14:06-0500 Heart rate 89 /min Fredi Ellington MD Work Phone: [facility] 09-09-2024 14:06-0500 Respiratory rate 18 /min Fredi Ellington MD Work Phone: [facility] 09-09-2024 14:06-0500 SaO2% (BldA) [Mass fraction] 99 % Fredi Ellington MD Work Phone: [facility] 09-09-2024 14:06-0500 Systolic blood pressure 116 mm[Hg] Fredi Ellington MD Work Phone: [facility] 09-09-2024 11:41-0500 Body height 170.18 cm Fredi Ellington MD Work Phone: [facility] 09-09-2024 11:41-0500 Body temperature 98.3 [degF] Fredi Ellington MD Work Phone: [facility] 09-09-2024 11:41-0500 Body weight 115.5 kg Fredi Ellington MD Work Phone: [facility] 08-25-2024 13:52-0500 Body mass index (BMI) [Ratio] 39.87 kg/m2 [facility] Nurse [facility] 08-25-2024 13:52-0500 Body weight 112.04 [facility] 08-21-2024 20:00-0500 Diastolic blood pressure 82 mm[Hg] [facility] 08-21-2024 20:00-0500 Mean blood pressure 104 mm[Hg] [facility] 08-21-2024 20:00-0500 Systolic blood pressure 147 mm[Hg] [facility] 08-21-2024 19:30-0500 Diastolic blood pressure 73 mm[Hg] [facility] 08-21-2024 19:30-0500 Mean blood pressure 96 mm[Hg] [facility] 08-21-2024 19:30-0500 Systolic blood pressure 142 mm[Hg] [facility] 08-21-2024 19:00-0500 Diastolic blood pressure 83 mm[Hg] [facility] 08-21-2024 19:00-0500 Heart rate 72 /min [facility] 08-21-2024 19:00-0500 Mean blood pressure 99 mm[Hg] [facility] 08-21-2024 19:00-0500 Systolic blood pressure 131 mm[Hg] [facility] 08-21-2024 18:30-0500 Heart rate 71 /min [facility] 08-21-2024 18:30-0500 Respiratory rate 16 /min [facility] 08-21-2024 18:30-0500 SaO2% (BldA) [Mass fraction] 100 % [facility] 08-21-2024 16:56-0500 Body temperature 98.24 [degF] [facility] 08-21-2024 16:56-0500 bodymassindex 2.09 kg/m2 [facility] Comment on above: Result Comment: ^~:![facility] 08-21-2024 16:56-0500 Heart rate 81 /min [facility] 08-21-2024 16:56-0500 Height/Length Percentile 84.97 1 [facility] Comment on above: Result Comment: ^~:![facility] 08-21-2024 16:56-0500 Height/Length Z-Score 1.04 1 [facility] Comment on above: Result Comment: ^~:![facility] 08-21-2024 16:56-0500 weight 2.47 1 [facility] Comment on above: Result Comment: ^~:![facility] ^~:!ZScore Source -[facility] 08-21-2024 16:56-0500 Weight Percentile 99.33 % Migue Farrell [facility] Comment on above: Result Comment: ^~:!Percentile Source - [place] ^~:!Percentile [facility] 08-11-2024 16:12-0500 Body height 167.6 cm Peyton Daynamor [employer] Work Phone: [facility] 08-11-2024 16:12-0500 Body mass index (BMI) [Ratio] 43.42 kg/m2 Peyton Gillmor [employer] Work Phone: [facility] 08-11-2024 16:12-0500 Body weight 122.02 kg Peyton Daynamor [employer] Work Phone: [facility] 08-11-2024 16:12-0500 Diastolic blood pressure 89 mm[Hg] Peyton Daynamor [employer] Work Phone: [facility] 08-11-2024 16:12-0500 Heart rate 97 /min Peyton Gillmor [employer] Work Phone: [facility] 08-11-2024 16:12-0500 Systolic blood pressure 132 mm[Hg] Peyton Daynamor [employer] Work Phone: [facility] 06-27-2024 00:48-0500 Diastolic blood pressure 106 mm[Hg] Han Miky [facility] 06-27-2024 00:48-0500 Heart rate 70 /min Han Miky [facility] 06-27-2024 00:48-0500 Respiratory rate 17 /min Han Miky [facility] 06-27-2024 00:48-0500 SaO2% (BldA) [Mass fraction] 96 % Han Miky [facility] 06-27-2024 00:48-0500 Systolic blood pressure 133 mm[Hg] Han Miky [facility] 06-26-2024 23:15-0500 Body temperature 98.6 [degF] Han Miky [facility] 06-26-2024 23:15-0500 bodymassindex 2.16 kg/m2 Han Miky [facility] Comment on above: Result Comment: ^~:![facility] 06-26-2024 23:15-0500 Diastolic blood pressure 78 mm[Hg] Han Miky [facility] 06-26-2024 23:15-0500 Heart rate 89 /min Han Miky [facility] 06-26-2024 23:15-0500 Height/Length Percentile 85.02 1 Han Miky [facility] Comment on above: Result Comment: ^~:![facility] 06-26-2024 23:15-0500 Height/Length Z-Score 1.04 1 Han Miky [facility] Comment on above: Result Comment: ^~:![facility] 06-26-2024 23:15-0500 Respiratory rate 18 /min Han Miky [facility] 06-26-2024 23:15-0500 SaO2% (BldA) [Mass fraction] 99 % Han Miky [facility] 06-26-2024 23:15-0500 Systolic blood pressure 117 mm[Hg] Han Miky [facility] 06-26-2024 23:15-0500 Weight Percentile 99.44 % Han Miky [facility] Comment on above: Result Comment: ^~:!Percentile Source [facility] 06-26-2024 23:15-0500 Weight Z-Score 2.54 1 Han Miky [facility] Comment on above: Result Comment: ^~:!ZScore [facility] 05-22-2024 21:52-0400 Body temperature 98.24 [degF] Han Miky [facility] 05-22-2024 21:52-0400 bodymassindex 2.17 kg/m2 Han Miky [facility] Comment on above: Result Comment: ^~:![facility] 05-22-2024 21:52-0400 Diastolic blood pressure 98 mm[Hg] Han Miky [facility] 05-22-2024 21:52-0400 Heart rate 110 /min Han Miky [facility] 05-22-2024 21:52-0400 Height/Length Percentile 85.68 1 Han Miky [facility] Comment on above: Result Comment: ^~:!Percentile Source [facility] 05-22-2024 21:52-0400 Height/Length Z-Score 1.07 1 Han Miky [facility] Comment on above: Result Comment: ^~:![facility] 05-22-2024 21:52-0400 Respiratory rate 16 /min Han Miky [facility] 05-22-2024 21:52-0400 SaO2% (BldA) [Mass fraction] 97 % Han Miky [facility] 05-22-2024 21:52-0400 Systolic blood pressure 160 mm[Hg] Han Miky [facility] 05-22-2024 21:52-0400 Weight Percentile 99.44 % Han Vazquezner [facility] Comment on above: Result Comment: ^~:!Percentile Source -[facility] 05-22-2024 21:52-0400 Weight Z-Score 2.54 1 Han Miky [facility] Comment on above: Result Comment: ^~:!ZScore [facility] 04-25-2024 13:15-0400 Blood Pressure Location Mohamad Mouchli [facility] 04-25-2024 13:15-0400 bodymassindex 2.16 kg/m2 Mohamad Mouchli [facility] Comment on above: Result Comment: ^~:!ZScore [facility] 04-25-2024 13:15-0400 Diastolic blood pressure 82 mm[Hg] Mohamad Mouchli [facility] 04-25-2024 13:15-0400 Heart rate 67 /min Mohamad Mouchli [facility] 04-25-2024 13:15-0400 Height/Length Percentile 85.07 1 Mohamad Mouchli [facility] Comment on above: Result Comment: ^~:!Percentile Source -[facility] 04-25-2024 13:15-0400 Height/Length Z-Score 1.04 1 Mohamad Mouchli [facility] Comment on above: Result Comment: ^~:!ZScore [facility] 04-25-2024 13:15-0400 Respiratory rate 16 /min Mohamad Mouchli [facility] 04-25-2024 13:15-0400 Systolic blood pressure 115 mm[Hg] Mohamad Mouchli [facility] 04-25-2024 13:15-0400 Weight Percentile 99.41 % Zenon Hernandez [facility] Comment on above: Result Comment: ^~:!Percentile Cele [facility] 04-25-2024 13:15-0400 Weight Z-Score 2.52 1 Zenon Hernandez [facility] Comment on above: Result Comment: ^~:![facility] 04-14-2024 20:04-0400 Body temperature 97.88 [degF] [facility] 04-14-2024 20:04-0400 bodymassindex 2.2 kg/m2 [facility] Comment on above: Result Comment: ^~:![facility] 04-14-2024 20:04-0400 Diastolic blood pressure 86 mm[Hg] [facility] 04-14-2024 20:04-0400 Heart rate 99 /min [facility] 04-14-2024 20:04-0400 Height/Length Percentile 85.07 1 [facility] Comment on above: Result Comment: ^~:!Percentile Cele [facility] 04-14-2024 20:04-0400 Height/Length Z-Score 1.04 1 [facility] Comment on above: Result Comment: ^~:![facility] 04-14-2024 20:04-0400 Respiratory rate 18 /min [facility] 04-14-2024 20:04-0400 SaO2% (BldA) [Mass fraction] 94 % [facility] 04-14-2024 20:04-0400 Systolic blood pressure 153 mm[Hg] [facility] 04-14-2024 20:04-0400 Weight Percentile 99.48 % [facility] Comment on above: Result Comment: ^~:!Percentile Cele [facility] 04-14-2024 20:04-0400 Weight Z-Score 2.57 1 Migue Farrell [facility] Comment on above: Result Comment: ^~:![facility] 04-10-2024 06:16-0400 Diastolic blood pressure 98 mm[Hg] Kaylinn Dokken [facility] 04-10-2024 06:16-0400 Heart rate 84 /min Kaylinn Dokken [facility] 04-10-2024 06:16-0400 Mean blood pressure 106 mm[Hg] Kaylinn Dokken [facility] 04-10-2024 06:16-0400 SaO2% (BldA) [Mass fraction] 99 % Kaylinn Dokken [facility] 04-10-2024 06:16-0400 Systolic blood pressure 122 mm[Hg] Kaylinn Dokken [facility] 04-10-2024 06:09-0400 Heart rate 85 /min Kaylinn Dokken [facility] 04-10-2024 06:09-0400 SaO2% (BldA) [Mass fraction] 99 % Kaylinn Dokken [facility] 04-10-2024 04:33-0400 Body temperature 98.24 [degF] Kaylinn Dokken [facility] 04-10-2024 04:33-0400 bodymassindex 2.19 kg/m2 Kaylinn Dokken [facility] Comment on above: Result Comment: ^~:![facility] 04-10-2024 04:33-0400 Diastolic blood pressure 73 mm[Hg] Kaylinn Dokken [facility] 04-10-2024 04:33-0400 Heart rate 103 /min Kaylinn Dokken [facility] 04-10-2024 04:33-0400 Height/Length Percentile 85.07 1 Kaylinn Dokken [facility] Comment on above: Result Comment: ^~:!Percentile Source [facility] 04-10-2024 04:33-0400 Height/Length Z-Score 1.04 1 Kaylinn Dokken [facility] Comment on above: Result Comment: ^~:!ZScore [facility] 04-10-2024 04:33-0400 Respiratory rate 16 /min Rockyylinn Dokken [facility] 04-10-2024 04:33-0400 SaO2% (BldA) [Mass fraction] 97 % Rockyylinn Dokken [facility] 04-10-2024 04:33-0400 Systolic blood pressure 116 mm[Hg] Kaylinn Dokken [facility] 04-10-2024 04:33-0400 Weight Percentile 99.46 % Rockyylinn Dokken [facility] Comment on above: Result Comment: ^~:!Percentile [facility] 04-10-2024 04:33-0400 Weight Z-Score 2.55 1 Kaylinn Dokken [facility] Comment on above: Result Comment: ^~:!ZScore [facility] 03-15-2024 01:00-0400 Diastolic blood pressure 98 mm[Hg] Han Miky [facility] 03-15-2024 01:00-0400 Heart rate 68 /min Han Miky [facility] 03-15-2024 01:00-0400 Mean blood pressure 114 mm[Hg] Han Miky [facility] 03-15-2024 01:00-0400 Respiratory rate 18 /min Han Miky [facility] 03-15-2024 01:00-0400 SaO2% (BldA) [Mass fraction] 100 % Han Miky [facility] 03-15-2024 01:00-0400 Systolic blood pressure 145 mm[Hg] Han Miky [facility] 03-15-2024 00:00-0400 Diastolic blood pressure 88 mm[Hg] Han Miky [facility] 03-15-2024 00:00-0400 Heart rate 80 /min Han Miky [facility] 03-15-2024 00:00-0400 Mean blood pressure 103 mm[Hg] Han Miky [facility] 03-15-2024 00:00-0400 Respiratory rate 11 /min Han Miky [facility] 03-15-2024 00:00-0400 SaO2% (BldA) [Mass fraction] 98 % Han Miky [facility] 03-15-2024 00:00-0400 Systolic blood pressure 133 mm[Hg] Han Miky [facility] 03-14-2024 23:00-0400 Diastolic blood pressure 62 mm[Hg] Han Miky [facility] 03-14-2024 23:00-0400 Heart rate 75 /min Han Miky [facility] 03-14-2024 23:00-0400 Mean blood pressure 79 mm[Hg] Han Miky [facility] 03-14-2024 23:00-0400 Respiratory rate 20 /min Han Miky [facility] 03-14-2024 23:00-0400 SaO2% (BldA) [Mass fraction] 97 % Han Miky [facility] 03-14-2024 23:00-0400 Systolic blood pressure 113 mm[Hg] Han Miky [facility] 03-14-2024 21:40-0400 Body temperature 97.88 [degF] Han Miky [facility] 03-14-2024 21:40-0400 bodymassindex 2.2 kg/m2 Han Miky [facility] Comment on above: Result Comment: ^~:!ZScore [facility] 03-14-2024 21:40-0400 Heart rate 92 /min Han Miky [facility] 03-14-2024 21:40-0400 Height/Length Percentile 85.45 1 Han Miky [facility] Comment on above: Result Comment: ^~:!Percentile [facility] 03-14-2024 21:40-0400 Height/Length Z-Score 1.06 1 Han Miky [facility] Comment on above: Result Comment: ^~:!ZScore [facility] 03-14-2024 21:40-0400 Respiratory rate 16 /min Han Miky [facility] 03-14-2024 21:40-0400 Weight Percentile 99.46 % Han Miky [facility] Comment on above: Result Comment: ^~:!Percentile Source [place] [place] 03-14-2024 21:40-0400 Weight Z-Score 2.55 1 Han Bolaños [facility] Comment on above: Result Comment: ^~:!ZScore [facility] 02-09-2024 14:30-0400 Blood Pressure Location Radha Steeny [facility] 02-09-2024 14:30-0400 bodymassindex 2.26 kg/m2 Radha Vizcainourany [facility] Comment on above: Result Comment: ^~:!ZScore [facility] 02-09-2024 14:30-0400 Diastolic blood pressure 80 mm[Hg] Radha Vizcainourany [facility] 02-09-2024 14:30-0400 Heart rate 92 /min Radha Vizcainourany [facility] 02-09-2024 14:30-0400 Height/Length Percentile 60.56 1 Radha Mourany [facility] Comment on above: Result Comment: ^~:!Percentile Source -[facility] 02-09-2024 14:30-0400 Height/Length Z-Score 0.27 1 Radha Mourany [facility] Comment on above: Result Comment: ^~:!ZScore [facility] 02-09-2024 14:30-0400 Systolic blood pressure 110 mm[Hg] Radha Mourany [facility] 02-09-2024 14:30-0400 Weight Percentile 99.39 % Radha Mourany [facility] Comment on above: Result Comment: ^~:!Percentile Source -[facility] [place] 02-09-2024 14:30-0400 Weight Z-Score 2.51 1 Radha Cantor [facility] [place] Comment on above: Result Comment: ^~:!ZScore [facility] 01-22-2024 09:44-0400 Blood Pressure Location Mohamad Mouchli [facility] 01-22-2024 09:44-0400 bodymassindex 2.28 kg/m2 Mohamad Mouchli [facility] Comment on above: Result Comment: ^~:![facility] 01-22-2024 09:44-0400 Diastolic blood pressure 78 mm[Hg] Mohamad Mouchli [facility] 01-22-2024 09:44-0400 Heart rate 94 /min Mohamad Mouchli [facility] 01-22-2024 09:44-0400 Height/Length Percentile 60.60 1 Mohamad Mouchli [facility] Comment on above: Result Comment: ^~:![facility] 01-22-2024 09:44-0400 Height/Length Z-Score 0.27 1 Mohamabrenda Mouchli [facility] Comment on above: Result Comment: ^~:![facility] 01-22-2024 09:44-0400 Respiratory rate 16 /min Mohamad Mouchli [facility] 01-22-2024 09:44-0400 Systolic blood pressure 111 mm[Hg] Mohamad Mouchli [facility] 01-22-2024 09:44-0400 Weight Percentile 99.42 % Mohamad Mouchli [facility] Comment on above: Result Comment: ^~:!Percentile Source - [place] 01-22-2024 09:44-0400 Weight Z-Score 2.52 1 Zenon Hernandez [facility] Comment on above: Result Comment: ^~:!ZScore Source -[facility] 01-13-2024 21:06-0400 Body temperature 98.06 [degF] [facility] 01-13-2024 21:06-0400 Diastolic blood pressure 93 mm[Hg] [facility] 01-13-2024 21:06-0400 Heart rate 71 /min [facility] 01-13-2024 21:06-0400 Mean blood pressure 105 mm[Hg] [facility] 01-13-2024 21:06-0400 Respiratory rate 18 /min [facility] 01-13-2024 21:06-0400 SaO2% (BldA) [Mass fraction] 96 % [facility] 01-13-2024 21:06-0400 Systolic blood pressure 130 mm[Hg] [facility] 01-13-2024 20:40-0400 Diastolic blood pressure 90 mm[Hg] [facility] 01-13-2024 20:40-0400 Heart rate 74 /min [facility] 01-13-2024 20:40-0400 Mean blood pressure 112 mm[Hg] [facility] 01-13-2024 20:40-0400 Systolic blood pressure 156 mm[Hg] [facility] 01-13-2024 19:43-0400 Diastolic blood pressure 84 mm[Hg] [facility] 01-13-2024 19:43-0400 Heart rate 76 /min [facility] 01-13-2024 19:43-0400 Mean blood pressure 100 mm[Hg] [facility] 01-13-2024 19:43-0400 Respiratory rate 18 /min [facility] 01-13-2024 19:43-0400 SaO2% (BldA) [Mass fraction] 97 % [facility] 01-13-2024 19:43-0400 Systolic blood pressure 131 mm[Hg] [facility] 01-13-2024 19:01-0400 Respiratory rate 16 /min [facility] 01-13-2024 19:01-0400 SaO2% (BldA) [Mass fraction] 97 % [facility] 01-13-2024 18:29-0400 Body temperature 98.42 [degF] [facility] 01-13-2024 18:29-0400 bodymassindex 2.3 kg/m2 [facility] Comment on above: Result Comment: ^~:![facility] 01-13-2024 18:29-0400 Heart rate 75 /min [facility] 01-13-2024 18:29-0400 Height/Length Percentile 61.20 1 [facility] Comment on above: Result Comment: ^~:!Percentile [facility] 01-13-2024 18:29-0400 Height/Length Z-Score 0.28 1 [facility] Comment on above: Result Comment: ^~:![facility] 01-13-2024 18:29-0400 Weight Percentile 99.46 % [facility] Comment on above: Result Comment: ^~:!Percentile [facility] 01-13-2024 18:29-0400 Weight Z-Score 2.55 1 [facility] Comment on above: Result Comment: ^~:![facility] 01-12-2024 17:20-0400 Diastolic blood pressure 91 mm[Hg] Radha Whipple [facility] 01-12-2024 17:20-0400 Heart rate 74 /min Radha Chaparroe [facility] 01-12-2024 17:20-0400 Mean blood pressure 108 mm[Hg] Radha Sole [facility] 01-12-2024 17:20-0400 Respiratory rate 16 /min Radha Sole [facility] 01-12-2024 17:20-0400 SaO2% (BldA) [Mass fraction] 100 % Radha Sole [facility] 01-12-2024 17:20-0400 Systolic blood pressure 143 mm[Hg] Radha Sole [facility] 01-12-2024 16:59-0400 Blood Pressure Location Radha Chaparroe [facility] 01-12-2024 16:59-0400 Diastolic blood pressure 91 mm[Hg] Radha Sole [facility] 01-12-2024 16:59-0400 Heart rate 82 /min Radha Chaparroe [facility] 01-12-2024 16:59-0400 Mean blood pressure 108 mm[Hg] Radha Chaparroe [facility] 01-12-2024 16:59-0400 Respiratory rate 16 /min Radha Sole [facility] 01-12-2024 16:59-0400 SaO2% (BldA) [Mass fraction] 100 % Radha Sole [facility] 01-12-2024 16:59-0400 Systolic blood pressure 143 mm[Hg] Radha Osle [facility] 01-12-2024 14:56-0400 Body temperature 98.6 [degF] Radha Sole [facility] 01-12-2024 14:56-0400 bodymassindex 2.3 kg/m2 Radha Whipple [facility] Comment on above: Result Comment: ^~:!ZScore [facility] 01-12-2024 14:56-0400 Diastolic blood pressure 86 mm[Hg] Radha Whipple [facility] 01-12-2024 14:56-0400 Heart rate 93 /min Radha Whipple [facility] 01-12-2024 14:56-0400 Height/Length Percentile 61.20 1 Radha Whipple [facility] Comment on above: Result Comment: ^~:!Percentile Source -[facility] 01-12-2024 14:56-0400 Height/Length Z-Score 0.28 1 Radha Whipple [facility] Comment on above: Result Comment: ^~:![email or web address] 01-12-2024 14:56-0400 Respiratory rate 18 /min Radha Whipple [facility] 01-12-2024 14:56-0400 SaO2% (BldA) [Mass fraction] 99 % Radha Whipple [facility] 01-12-2024 14:56-0400 Systolic blood pressure 135 mm[Hg] Radha Whipple [facility] 01-12-2024 14:56-0400 Weight Percentile 99.46 % Radha Whipple [facility] Comment on above: Result Comment: ^~:!Percentile Source -[facility] [place] 01-12-2024 14:56-0400 Weight Z-Score 2.55 1 Radha Whipple [facility] Comment on above: Result Comment: ^~:!ZScore [facility] 06-30-2023 13:40-0500 Body height 165.1 cm Valorie Hansen MD Work Phone: [facility] 06-30-2023 13:40-0500 Body mass index (BMI) [Percentile] Per age and sex 99.59 % Valorie Hansen MD Work Phone: [facility] 06-30-2023 13:40-0500 Body mass index (BMI) [Ratio] 43.4 kg/m2 Valorie Hansen MD Work Phone: [facility] 06-30-2023 13:40-0500 Body weight 118.3 kg Valorie Hansen MD Work Phone: [facility] 06-30-2023 13:40-0500 Respiratory rate 16 /min Valorie Hansen MD Work Phone: [facility] 05-13-2023 13:00-0400 Hourly Rounding Hasan AMIR [facility] 05-13-2023 13:00-0400 Promise to Return Hasan AMIR [facility] 05-13-2023 12:00-0400 Body temperature 98.24 [degF] Hasan AMIR [facility] 05-13-2023 12:00-0400 Diastolic blood pressure 84 mm[Hg] Hasan AMIR [facility] 05-13-2023 12:00-0400 Heart rate 76 /min Hasan AMIR [facility] 05-13-2023 12:00-0400 Hourly Rounding Hasan AMIR [facility] 05-13-2023 12:00-0400 Mean blood pressure 93 mm[Hg] Hasan AMIR [facility] 05-13-2023 12:00-0400 Promise to Return Hasan AMIR [facility] 05-13-2023 12:00-0400 Respiratory rate 14 /min Hasan AMIR [facility] 05-13-2023 12:00-0400 SaO2% (BldA) [Mass fraction] 96 % Hasan AMIR [facility] 05-13-2023 12:00-0400 Systolic blood pressure 112 mm[Hg] Hasan AMIR [facility] 05-13-2023 11:00-0400 Diastolic blood pressure 71 mm[Hg] Hasan AMIR [facility] 05-13-2023 11:00-0400 Heart rate 90 /min Hasan AMIR [facility] 05-13-2023 11:00-0400 Hourly Rounding Hasan AMIR [facility] 05-13-2023 11:00-0400 Mean blood pressure 84 mm[Hg] Hasan AMIR [facility] 05-13-2023 11:00-0400 Promise to Return Hasan AMIR [facility] 05-13-2023 11:00-0400 Respiratory rate 13 /min Hasan AMIR [facility] 05-13-2023 11:00-0400 SaO2% (BldA) [Mass fraction] 97 % Hasan AMIR [facility] 05-13-2023 11:00-0400 Systolic blood pressure 111 mm[Hg] Hasan AMIR [facility] 05-13-2023 10:00-0400 Diastolic blood pressure 86 mm[Hg] Hasan AMIR [facility] 05-13-2023 10:00-0400 Heart rate 75 /min Hasan AMIR [facility] 05-13-2023 10:00-0400 Mean blood pressure 97 mm[Hg] Hasan AMIR [facility] 05-13-2023 10:00-0400 Systolic blood pressure 119 mm[Hg] Hasan AMIR [facility] 05-13-2023 08:00-0400 Body temperature 98.78 [degF] Hasan AMIR [facility] 05-13-2023 06:00-0400 Blood Pressure Location Hasan AMIR [facility] 05-13-2023 05:27-0400 weight 2.47 1 Hasan AMIR [facility] Comment on above: Result Comment: ^~:![facility] 05-13-2023 05:27-0400 Weight Percentile 99.33 % Hasan AMIR [facility] Comment on above: Result Comment: ^~:!Percentile Source [facility] 05-13-2023 04:00-0400 Body temperature 97.88 [degF] Hasan AMIR [facility] 05-12-2023 09:00-0400 weight 2.48 1 Hasan AMIR [facility] Comment on above: Result Comment: ^~:!ZScore [facility] 05-12-2023 09:00-0400 Weight Percentile 99.34 % Hasan AMIR [facility] Comment on above: Result Comment: ^~:!Percentile Source [facility] 05-12-2023 06:18-0400 weight 2.46 1 Hasan AMIR [facility] Comment on above: Result Comment: ^~:![facility] ^[facility] 05-12-2023 06:18-0400 Weight Percentile 99.30 % Hasan AMIR [facility] Comment on above: Result Comment: ^~:!Percentile Source -[facility] ^~:!Percentile [facility] 05-11-2023 20:00-0400 Body temperature 97.88 [degF] Hasan AMIR [facility] 05-11-2023 08:01-0400 bodymassindex 2.34 kg/m2 Hasan AMIR [facility] Comment on above: Result Comment: ^~:![facility] 05-11-2023 08:01-0400 Height/Length Percentile 61.66 1 Hasan AMIR [facility] Comment on above: Result Comment: ^~:!Percentile Source -[facility] [place] 05-11-2023 08:01-0400 Height/Length Z-Score 0.30 1 Hasan AMIR [facility] Comment on above: Result Comment: ^~:!Debbie [facility] 05-11-2023 07:58-0400 bodymassindex 2.34 kg/m2 Hasan AMIR [facility] Comment on above: Result Comment: ^~:!Debbie [facility] 05-11-2023 07:58-0400 Height/Length Percentile 61.66 1 Hasan AMIR [facility] Comment on above: Result Comment: ^~:!Percentile Source -[facility] [place] 05-11-2023 07:58-0400 Height/Length Z-Score 0.30 1 Hasan AMIR [facility] Comment on above: Result Comment: ^~:![facility] 03-16-2023 17:47-0400 Diastolic blood pressure 80 mm[Hg] Radha Whipple [facility] 03-16-2023 17:47-0400 Heart rate 84 /min Radha Whipple [facility] 03-16-2023 17:47-0400 Respiratory rate 17 /min Radha Whipple [facility] 03-16-2023 17:47-0400 SaO2% (BldA) [Mass fraction] 99 % Radha Whipple [facility] 03-16-2023 17:47-0400 Systolic blood pressure 133 mm[Hg] Radha Whipple [facility] 03-16-2023 16:52-0400 Body temperature 98.42 [degF] Radha Whipple [facility] 03-16-2023 16:52-0400 bodymassindex 2.36 Radah Whipple [facility] Comment on above: Result Comment: ^~:![facility] 03-16-2023 16:52-0400 Diastolic blood pressure 92 mm[Hg] Radha Whipple [facility] 03-16-2023 16:52-0400 Heart rate 104 /min Radha Whipple [facility] 03-16-2023 16:52-0400 Height/Length Percentile 61.80 Radha Chaparroe [facility] Comment on above: Result Comment: ^~:!Percentile [facility] 03-16-2023 16:52-0400 Height/Length Z-Score 0.30 Radha Chaparroe [facility] Comment on above: Result Comment: ^~:![facility] 03-16-2023 16:52-0400 Respiratory rate 17 /min Radha Whipple [facility] 03-16-2023 16:52-0400 SaO2% (BldA) [Mass fraction] 98 % Radha Whipple [facility] 03-16-2023 16:52-0400 Systolic blood pressure 118 mm[Hg] Radha Whipple [facility] 03-16-2023 16:52-0400 weight 2.52 Radha Whipple [facility] Comment on above: Result Comment: ^~:![facility] 03-16-2023 16:52-0400 Weight Percentile 99.41 % Radha Whipple [facility] Comment on above: Result Comment: ^~:!Percentile Source -[facility] 03-13-2023 07:30-0400 Body temperature 98.1 [degF] MD Fredi Ellington Work Phone: [facility] 03-13-2023 07:30-0400 Diastolic blood pressure 65 mm[Hg] MD Fredi Ellington Work Phone: [facility] 03-13-2023 07:30-0400 Heart rate 60 /min MD Fredi Ellington Work Phone: [facility] 03-13-2023 07:30-0400 Respiratory rate 16 /min MD Fredi Ellington Work Phone: [facility] 03-13-2023 07:30-0400 SaO2% (BldA) [Mass fraction] 95 % MD Fredi Ellington Work Phone: [facility] 03-13-2023 07:30-0400 Systolic blood pressure 97 mm[Hg] MD Fredi Ellington Work Phone: [facility] 03-11-2023 15:15-0400 Body height 165.1 cm MD Ferdi Ellington Work Phone: [facility] 03-10-2023 15:55-0400 Body weight 113.39 kg MD Fredi Ellington Work Phone: [facility] 03-10-2023 13:00-0400 Hourly Rounding Orlando Paster [facility] 03-10-2023 13:00-0400 Promise to Return Orlando Paster [facility] 03-10-2023 12:28-0400 Hourly Rounding Orlando Paster [facility] 03-10-2023 12:28-0400 Promise to Return Orlando Paster [facility] 03-10-2023 11:00-0400 Blood Pressure Location Orlando Paster [facility] 03-10-2023 11:00-0400 Body temperature 98.06 [degF] Orlando Paster [facility] 03-10-2023 11:00-0400 Diastolic blood pressure 73 mm[Hg] Orlando Paster [facility] 03-10-2023 11:00-0400 Heart rate 91 /min Orlando Paster [facility] 03-10-2023 11:00-0400 Hourly Rounding Orlando Paster [facility] 03-10-2023 11:00-0400 Mean blood pressure 85 mm[Hg] Orlando Paster [facility] 03-10-2023 11:00-0400 Promise to Return Orlando Paster [facility] 03-10-2023 11:00-0400 Respiratory rate 16 /min Orlando Paster [facility] 03-10-2023 11:00-0400 SaO2% (BldA) [Mass fraction] 97 % Orlando Paster [facility] 03-10-2023 11:00-0400 Systolic blood pressure 109 mm[Hg] Orlando Paster [facility] 03-10-2023 07:00-0400 Body temperature 97.88 [degF] Orlando Paster [facility] 03-10-2023 07:00-0400 Diastolic blood pressure 72 mm[Hg] Orlando Paster [facility] 03-10-2023 07:00-0400 Heart rate 87 /min Orlando Paster [facility] 03-10-2023 07:00-0400 Mean blood pressure 86 mm[Hg] Orlando Paster [facility] 03-10-2023 07:00-0400 Respiratory rate 18 /min Orlando Paster [facility] 03-10-2023 07:00-0400 SaO2% (BldA) [Mass fraction] 96 % Orlando Paster [facility] 03-10-2023 07:00-0400 Systolic blood pressure 115 mm[Hg] [facility] [facility] 03-10-2023 05:04-0400 weight 2.52 Orlando Paster [facility] Comment on above: Result Comment: ^~:!ZScore Source -[facility] 03-10-2023 05:04-0400 Weight Percentile 99.41 % Orlando Paster [facility] Comment on above: Result Comment: ^~:!Percentile Source -[facility] 03-10-2023 00:14-0400 Blood Pressure Location Orlando Paster [facility] 03-10-2023 00:14-0400 Body temperature 98.06 [degF] Orlando Paster [facility] 03-10-2023 00:14-0400 Diastolic blood pressure 74 mm[Hg] Orlando Paster [facility] 03-10-2023 00:14-0400 Heart rate 79 /min Orlando Paster [facility] 03-10-2023 00:14-0400 Mean blood pressure 89 mm[Hg] Orlando Paster [facility] 03-10-2023 00:14-0400 Respiratory rate 16 /min Orlando Paster [facility] 03-10-2023 00:14-0400 Systolic blood pressure 118 mm[Hg] Orlando Paster [facility] 03-09-2023 19:28-0400 SaO2% (BldA) [Mass fraction] 95 % Orlando Paster [facility] 03-09-2023 19:28-0400 Mean blood pressure 91 mm[Hg] Orlando Paster [facility] 03-09-2023 19:27-0400 Body temperature 98.06 [degF] Orlando Paster [facility] 03-09-2023 12:39-0400 weight 2.44 Orlando Paster [facility] Comment on above: Result Comment: ^~:!ZScore Source -[facility] 03-09-2023 12:39-0400 Weight Percentile 99.26 % Orlando Paster [facility] Comment on above: Result Comment: ^~:!Percentile Source -[facility] 03-08-2023 10:57-0400 Body temperature 97.88 [degF] Orlando Paster [facility] 03-08-2023 10:56-0400 Mean blood pressure 89 mm[Hg] Orlando Paster [facility] 03-08-2023 07:28-0400 Mean blood pressure 97 mm[Hg] Orlando Paster [facility] 03-08-2023 07:28-0400 Heart rate 81 /min Orlando Paster [facility] 03-08-2023 07:28-0400 Respiratory rate 21 /min Orlando Paster [facility] 03-08-2023 06:49-0400 weight 2.80 Orladno Paster [facility] Comment on above: Result Comment: ^~:![facility] 03-08-2023 06:49-0400 Weight Percentile 99.74 % Orlando Paster [facility] Comment on above: Result Comment: ^~:!Percentile Source -[facility] 03-07-2023 23:48-0400 Respiratory rate 18 /min Orlando Paster [facility] 03-07-2023 20:57-0400 Respiratory rate 18 /min Orlando Paster [facility] 03-07-2023 20:02-0400 bodymassindex 2.58 Orlando Paster [facility] Comment on above: Result Comment: ^~:!ZScore [facility] 03-07-2023 20:02-0400 Height/Length Percentile 61.80 Orlando Paster [facility] Comment on above: Result Comment: ^~:!Percentile Source -[facility] 03-07-2023 20:02-0400 Height/Length Z-Score 0.30 Orlando Paster [facility] Comment on above: Result Comment: ^~:![facility] 03-07-2023 18:52-0400 bodymassindex 2.58 Orlando Paster [facility] Comment on above: Result Comment: ^~:!Debbie [facility] 03-07-2023 18:52-0400 Heart rate 91 /min Orlando Paster [facility] 03-07-2023 18:52-0400 Height/Length Percentile 61.80 Orlando Paster [facility] Comment on above: Result Comment: ^~:!Percentile Source [facility] 03-07-2023 18:52-0400 Height/Length Z-Score 0.30 Orlando Paster [facility] Comment on above: Result Comment: ^~:!Debbie [facility] 03-07-2023 14:11-0400 bodymassindex 2.33 Orlando Paster [facility] Comment on above: Result Comment: ^~:!Debbie [facility] 03-07-2023 14:11-0400 Heart rate 105 /min Orlando Paster [facility] 03-07-2023 14:11-0400 Height/Length Percentile 61.21 Orlando Paster [facility] Comment on above: Result Comment: ^~:!Vandana Oakley [facility] 03-07-2023 14:11-0400 Height/Length Z-Score 0.28 Orlando Paster [facility] Comment on above: Result Comment: ^~:!Debbie [facility] 11-13-2022 13:56-0400 Body temperature 98.06 [degF] Wilfredo Villareal [facility] 11-13-2022 13:56-0400 bodymassindex 2.31 Wilfredo Villareal [facility] Comment on above: Result Comment: ^~:![facility] 11-13-2022 13:56-0400 Diastolic blood pressure 85 mm[Hg] Wilfredo Villareal [facility] 11-13-2022 13:56-0400 Heart rate 94 /min Wilfredo Villareal [facility] 11-13-2022 13:56-0400 Height/Length Percentile 61.53 Wilfredo Villareal [facility] Comment on above: Result Comment: ^~:!Percentile Source -[facility] 11-13-2022 13:56-0400 Height/Length Z-Score 0.29 Wilfredo Villareal [facility] Comment on above: Result Comment: ^~:![facility] 11-13-2022 13:56-0400 Respiratory rate 16 /min Wilfredo Villareal [facility] 11-13-2022 13:56-0400 SaO2% (BldA) [Mass fraction] 97 % Wilfredo Villareal [facility] 11-13-2022 13:56-0400 Systolic blood pressure 135 mm[Hg] Wilfredo Villareal [facility] 11-13-2022 13:56-0400 weight 2.42 Wilfredo Villareal [facility] Comment on above: Result Comment: ^~:![facility] 11-13-2022 13:56-0400 Weight Percentile 99.23 % Wilfredo Villareal [facility] Comment on above: Result Comment: ^~:!Percentile Source -[facility] 10-11-2022 01:10-0500 Diastolic blood pressure 74 mm[Hg] Kaylinn Dokken [facility] 10-11-2022 01:10-0500 Heart rate 85 /min Kaylinn Dokken [facility] 10-11-2022 01:10-0500 Respiratory rate 12 /min Kaylinn Dokken [facility] 10-11-2022 01:10-0500 SaO2% (BldA) [Mass fraction] 98 % Kaylinn Dokken [facility] 10-11-2022 01:10-0500 Systolic blood pressure 118 mm[Hg] Kaylinn Dokken [facility] 10-11-2022 00:04-0500 Diastolic blood pressure 74 mm[Hg] Kaylinn Dokken [facility] 10-11-2022 00:04-0500 Heart rate 74 /min Kaylinn Dokken [facility] 10-11-2022 00:04-0500 Respiratory rate 12 /min Kaylinn Dokken [facility] 10-11-2022 00:04-0500 SaO2% (BldA) [Mass fraction] 97 % Kaylinn Dokken [facility] 10-11-2022 00:04-0500 Systolic blood pressure 101 mm[Hg] Kaylinn Dokken [facility] 10-10-2022 23:00-0500 Diastolic blood pressure 85 mm[Hg] Kaylinn Dokken [facility] 10-10-2022 23:00-0500 Heart rate 87 /min Kaylinn Dokken [facility] 10-10-2022 23:00-0500 Mean blood pressure 92 mm[Hg] Kaylinn Dokken [facility] 10-10-2022 23:00-0500 Respiratory rate 20 /min Kaylinn Dokken [facility] 03-10-2023 23:00-0500 Systolic blood pressure 105 mm[Hg] Ko Draper [facility] 10-10-2022 21:54-0500 Body temperature 98.42 [degF] Ko Draper [facility] 10-10-2022 21:54-0500 bodymassindex 2.32 Ko Draper [facility] Comment on above: Result Comment: ^~:!ZScore [facility] 10-10-2022 21:54-0500 Height/Length Percentile 62.20 Ko Draper [facility] Comment on above: Result Comment: ^~:!Percentile Source -[facility] 10-10-2022 21:54-0500 Height/Length Z-Score 0.31 Ko Draper [facility] Comment on above: Result Comment: ^~:!ZScore [facility] 10-10-2022 21:54-0500 Respiratory rate 15 /min Ko Draper [facility] 10-10-2022 21:54-0500 weight 2.43 Ko Draper [facility] Comment on above: Result Comment: ^~:!ZScore [facility] 10-10-2022 21:54-0500 Weight Percentile 99.24 % Ko Draper [facility] Comment on above: Result Comment: ^~:!Percentile Source -[facility] 10-06-2022 14:00-0500 Diastolic blood pressure 69 mm[Hg] Han Miky [facility] 10-06-2022 14:00-0500 Heart rate 79 /min Han Miky [facility] 10-06-2022 14:00-0500 Mean blood pressure 87 mm[Hg] Han Miky [facility] 10-06-2022 14:00-0500 Respiratory rate 18 /min Han Miky [facility] 10-06-2022 14:00-0500 SaO2% (BldA) [Mass fraction] 95 % Han Miky [facility] 10-06-2022 14:00-0500 Systolic blood pressure 122 mm[Hg] Han Miky [facility] 10-06-2022 00:30-0500 Diastolic blood pressure 60 mm[Hg] Han Miky [facility] 10-06-2022 00:30-0500 Heart rate 88 /min Han Miky [facility] 10-06-2022 00:30-0500 Respiratory rate 18 /min Han Miky [facility] 10-06-2022 00:30-0500 SaO2% (BldA) [Mass fraction] 96 % Han Miky [facility] 10-06-2022 00:30-0500 Systolic blood pressure 102 mm[Hg] Han Miky [facility] 10-05-2022 23:51-0500 Body temperature 97.7 [degF] Han Miky [facility] 10-05-2022 23:51-0500 bodymassindex 2.34 Han Miky [facility] Comment on above: Result Comment: ^~:![facility] 10-05-2022 23:51-0500 Diastolic blood pressure 78 mm[Hg] Han Miky [facility] 10-05-2022 23:51-0500 Heart rate 89 /min Han Miky [facility] 10-05-2022 23:51-0500 Height/Length Percentile 61.61 Han Miky [facility] Comment on above: Result Comment: ^~:!Percentile Source -[facility] 10-05-2022 23:51-0500 Height/Length Z-Score 0.30 Han Miky [facility] Comment on above: Result Comment: ^~:!ZScore [facility] 10-05-2022 23:51-0500 Respiratory rate 18 /min Ahn Miky [facility] 10-05-2022 23:51-0500 SaO2% (BldA) [Mass fraction] 95 % Han Miky [facility] 10-05-2022 23:51-0500 Systolic blood pressure 171 mm[Hg] Han Miky [facility] 10-05-2022 23:51-0500 weight 2.45 Han Miky [facility] Comment on above: Result Comment: ^~:!ZScore [facility] 10-05-2022 23:51-0500 Weight Percentile 99.29 % Han Miky [facility] Comment on above: Result Comment: ^~:!Percentile Source -[facility] 07-08-2022 22:00-0500 Body temperature 98.78 [degF] Alexinn Dokken [facility] 07-08-2022 22:00-0500 Diastolic blood pressure 74 mm[Hg] Kaylinn Dokken [facility] 07-08-2022 22:00-0500 Heart rate 77 /min Kaylinn Dokken [facility] 07-08-2022 22:00-0500 Mean blood pressure 86 mm[Hg] Kaylinn Dokken [facility] 07-08-2022 22:00-0500 Respiratory rate 12 /min Kaylinn Dokken [facility] 07-08-2022 22:00-0500 SaO2% (BldA) [Mass fraction] 97 % Kaylinn Dokken [facility] 07-08-2022 22:00-0500 Systolic blood pressure 110 mm[Hg] Kaylinn Dokken [facility] 07-08-2022 21:44-0500 Body temperature 99.32 [degF] Kaylinn Dokken [facility] 07-08-2022 21:44-0500 Diastolic blood pressure 73 mm[Hg] Kaylinn Dokken [facility] 07-08-2022 21:44-0500 Heart rate 90 /min Kaylinn Dokken [facility] 07-08-2022 21:44-0500 Mean blood pressure 88 mm[Hg] Kaylinn Dokken [facility] 07-08-2022 21:44-0500 Respiratory rate 16 /min Kaylinn Dokken [facility] 07-08-2022 21:44-0500 SaO2% (BldA) [Mass fraction] 96 % Kaylinn Dokken [facility] 07-08-2022 21:44-0500 Systolic blood pressure 119 mm[Hg] Kaylinn Dokken [facility] 07-08-2022 21:00-0500 Diastolic blood pressure 67 mm[Hg] Kaylinn Dokken [facility] 07-08-2022 21:00-0500 Heart rate 80 /min Kaylinn Dokken [facility] 07-08-2022 21:00-0500 Mean blood pressure 83 mm[Hg] Kaylinn Dokken [facility] 07-08-2022 21:00-0500 SaO2% (BldA) [Mass fraction] 98 % Kaylinn Dokken [facility] 07-08-2022 21:00-0500 Systolic blood pressure 116 mm[Hg] Kaylinn Dokken [facility] 07-08-2022 18:52-0500 Body temperature 100.04 [degF] Kaylinn Dokken [facility] 07-08-2022 18:52-0500 bodymassindex 2.38 Kaylinn Dokken [facility] Comment on above: Result Comment: ^~:![facility] 07-08-2022 18:52-0500 Heart rate 86 /min Kaylinn Dokken [facility] 07-08-2022 18:52-0500 Height/Length Percentile 61.90 % Kaylinn Dokken [facility] Comment on above: Result Comment: ^~:![facility] 07-08-2022 18:52-0500 Height/Length Z-Score 0.30 Kaylinn Dokken [facility] Comment on above: Result Comment: ^~:!ZScore [facility] 07-08-2022 18:52-0500 Respiratory rate 18 /min Ko Draper [facility] 07-08-2022 18:52-0500 weight 2.47 Ko Draper [facility] Comment on above: Result Comment: ^~:!ZScore [facility] 07-08-2022 18:52-0500 Weight Percentile 99.33 % Ko Draper [facility] Comment on above: Result Comment: ^~:!Percentile Source -[facility] 07-04-2022 18:09-0500 Body temperature 98.06 [degF] Radha Whipple [facility] 07-04-2022 18:09-0500 bodymassindex 2.21 Radha Whipple [facility] Comment on above: Result Comment: ^~:![email or web address] [facility] 07-04-2022 18:09-0500 Diastolic blood pressure 83 mm[Hg] Radha Whipple [facility] 07-04-2022 18:09-0500 Heart rate 99 /min Radha Whipple [facility] 07-04-2022 18:09-0500 Height/Length Percentile 61.90 % Radha Whipple [facility] Comment on above: Result Comment: ^~:!Percentile Source -[facility] 07-04-2022 18:09-0500 Height/Length Z-Score 0.30 Radha Whipple [facility] Comment on above: Result Comment: ^~:![email or web address] 07-04-2022 18:09-0500 Respiratory rate 18 /min Radha Whipple [facility] 07-04-2022 18:09-0500 SaO2% (BldA) [Mass fraction] 97 % Radha Whipple [facility] 07-04-2022 18:09-0500 Systolic blood pressure 121 mm[Hg] Radha Whipple [facility] 07-04-2022 18:09-0500 weight 2.29 Radha Whipple [facility] Comment on above: Result Comment: ^~:!ZScore Source -[facility] 07-04-2022 18:09-0500 Weight Percentile 98.88 % Radha Whipple [facility] Comment on above: Result Comment: ^~:!Percentile Source -[facility] 07-02-2022 16:02-0500 Diastolic blood pressure 64 mm[Hg] Wilfredo Mono [facility] 07-02-2022 16:02-0500 Heart rate 95 /min Wilfredo Mono [facility] 07-02-2022 16:02-0500 Respiratory rate 18 /min Wilfredo Mono [facility] 07-02-2022 16:02-0500 SaO2% (BldA) [Mass fraction] 95 % Wilfredo Mono [facility] 07-02-2022 16:02-0500 Systolic blood pressure 108 mm[Hg] Wilfredo Mono [facility] 07-02-2022 14:24-0500 Diastolic blood pressure 78 mm[Hg] Wilfredo Mono [facility] 07-02-2022 14:24-0500 Heart rate 95 /min Wilfredo Mono [facility] 07-02-2022 14:24-0500 Respiratory rate 18 /min Wilfredo Mono [facility] 07-02-2022 14:24-0500 SaO2% (BldA) [Mass fraction] 96 % Wilfredo Mono [facility] 07-02-2022 14:24-0500 Systolic blood pressure 137 mm[Hg] Wilfredo Villareal [facility] 07-02-2022 13:28-0500 Body temperature 98.06 [degF] Wilfredo Villareal [facility] 07-02-2022 13:28-0500 bodymassindex 2.21 Wilfredo Villareal [facility] Comment on above: Result Comment: ^~:![facility] 07-02-2022 13:28-0500 Diastolic blood pressure 74 mm[Hg] Wilfredo Villareal [facility] 07-02-2022 13:28-0500 Heart rate 108 /min Wilfredo Mono [facility] 07-02-2022 13:28-0500 Height/Length Percentile 61.90 % Wilfredo Villareal [facility] Comment on above: Result Comment: ^~:![facility] 07-02-2022 13:28-0500 Height/Length Z-Score 0.30 Wilfredo Villareal [facility] Comment on above: Result Comment: ^~:![facility] 07-02-2022 13:28-0500 Respiratory rate 18 /min Wilfredo Villareal [facility] 07-02-2022 13:28-0500 SaO2% (BldA) [Mass fraction] 98 % Wilfredo Villareal [facility] 07-02-2022 13:28-0500 Systolic blood pressure 130 mm[Hg] Wilfredo Mono [facility] 07-02-2022 13:28-0500 weight 2.29 Wilfredo Villareal [facility] Comment on above: Result Comment: ^~:!ZScore Source -[facility] 07-02-2022 13:28-0500 Weight Percentile 98.88 % Wilfredo Villareal [facility] Comment on above: Result Comment: ^~:!Percentile Source -[facility] 12-05-2021 22:39-0400 Blood Pressure Location Wilfredo Villareal [facility] 12-05-2021 22:39-0400 Body temperature 98.42 [degF] Wilfredo Villareal [facility] 12-05-2021 22:39-0400 Diastolic blood pressure 98 mm[Hg] Wilfredo Villareal [facility] 12-05-2021 22:39-0400 Heart rate 114 /min Wilfredo Villareal [facility] 12-05-2021 22:39-0400 Mean blood pressure 110 mm[Hg] Wilfredo Villareal [facility] 12-05-2021 22:39-0400 Respiratory rate 16 /min Wilfredo Villareal [facility] 12-05-2021 22:39-0400 SaO2% (BldA) [Mass fraction] 95 % Wilfredo Villareal [facility] 12-05-2021 22:39-0400 Systolic blood pressure 133 mm[Hg] Wilfredo Villareal [facility] 12-05-2021 19:45-0400 Blood Pressure Location Wilfredo Villareal [facility] 12-05-2021 19:45-0400 Body temperature 99.68 [degF] Wilfredo Mono [facility] 12-05-2021 19:45-0400 Diastolic blood pressure 91 mm[Hg] Wilfredo Mono [facility] 12-05-2021 19:45-0400 Heart rate 107 /min Wilfredo Mono [facility] 12-05-2021 19:45-0400 Mean blood pressure 101 mm[Hg] Wilfredo Mono [facility] 12-05-2021 19:45-0400 Respiratory rate 16 /min Wilfredo Mono [facility] 12-05-2021 19:45-0400 SaO2% (BldA) [Mass fraction] 99 % Wilfredo Mono [facility] 12-05-2021 19:45-0400 Systolic blood pressure 122 mm[Hg] Wilfredo Mono [facility] 12-05-2021 18:51-0400 Blood Pressure Location Wilfredokeysha Villareal [facility] 12-05-2021 18:51-0400 Diastolic blood pressure 64 mm[Hg] Wilfredo Mono [facility] 12-05-2021 18:51-0400 Heart rate 74 /min Wilfredo Mono [facility] 12-05-2021 18:51-0400 Mean blood pressure 88 mm[Hg] Wilfredo Mono [facility] 12-05-2021 18:51-0400 Respiratory rate 16 /min Wilfredo Mono [facility] 12-05-2021 18:51-0400 SaO2% (BldA) [Mass fraction] 99 % Wilfredo Mono [facility] 12-05-2021 18:51-0400 Systolic blood pressure 137 mm[Hg] Wilfredo Mono [facility] 12-05-2021 07:00-0400 Body temperature 98.6 [degF] Wilfredo Mono [facility] Encounters Encounter Date Encounter Type Care Provider Facility Start: 03-21-2025 End: 03-21-2025 Bamboo flowsheet Ranjit Robb DO Work Phone: [facility] Start: 03-21-2025 End: 03-21-2025 Bamboo flowsheet Ranjit Robb DO Work Phone: [facility] Start: 03-21-2025 End: 03-21-2025 Office outpatient visit 15 minutes Ranjit Robb DO Work Phone: [facility] Comment on above: 38 weeks gestation o f ([facility]); Third trimester ([facility]); Elevated BP without diagnosis of hypertension Start: 03-21-2025 End: 03-21-2025 ambulatory RANJIT ROBB Not Available Start: 03-15-2025 End: 03-15-2025 Bamboo flowsheet Ranjit Robb DO Work Phone: [facility] Start: 03-15-2025 End: 03-15-2025 Bamboo flowsheet Ranjit Robb DO Work Phone: [facility] Start: 03-15-2025 End: 03-15-2025 Office outpatient visit 15 minutes Ranjit Robb DO Work Phone: [facility] Comment on above: 37 weeks gestation o f ([facility]); Third trimester ([facility]); Stomach pain Start: 03-15-2025 End: 03-15-2025 ambulatory RANJIT ROBB Not Available Start: 03-09-2025 End: 03-09-2025 Bamboo flowsheet Martina SALAZAR Work Phone: [facility] Start: 03-09-2025 End: 03-09-2025 Bamboo flowsheet Martina SALAZAR Work Phone: [facility] Start: 03-09-2025 End: 03-09-2025 ambulatory MARTINA ARRINGTON Not Available Start: 03-09-2025 End: 03-09-2025 Office outpatient visit 15 minutes Martina SALAZAR Work Phone: [facility] Comment on above: Third trimester preg lisa ([facility]); 36 weeks gestation of ([facility]) Start: 03-02-2025 End: 03-02-2025 Bamboo flowsheet Martina Arrington PA Work Phone: [facility] Start: 03-02-2025 End: 03-02-2025 Bamboo flowsheet Martina Arrington PA Work Phone: [facility] Start: 03-02-2025 End: 03-02-2025 ambulatory MARTINA ARRINGTON Not Available Start: 03-02-2025 End: 03-02-2025 Office outpatient visit 15 minutes Martina SALAZAR Work Phone: [facility] Comment on above: Third trimester preg lisa ([facility]); 36 weeks gestation of ([facility]) Start: 02-23-2025 End: 02-23-2025 Bamboo flowsheet Ranjit [...] Stomach pain (Primar y Dx); Third trimester ([facility]); 35 weeks gestation of ([facility]) Start: 02-16-2025 End: 02-16-2025 Office outpatient visit 15 minutes Martina SALAZAR Work Phone: [facility] Comment on above: Third trimester preg lisa ([facility]); 34 weeks gestation of ([facility]) Start: 02-16-2025 End: 02-16-2025 ambulatory MARTINA ARRINGTON Not Available Start: 02-01-2025 End: 02-01-2025 ambulatory RANJIT ROBB Not Available Start: 02-01-2025 End: 02-01-2025 Office outpatient visit 15 minutes Ranjit Robb DO Work Phone: [facility] Comment on above: Third trimester preg lisa ([facility]); 32 weeks gestation of ([facility]); size inconsistent with dates ([facility]) Start: 01-30-2025 ambulatory Robson Harris acility:[facility] Start: 01-18-2025 End: 01-18-2025 ambulatory MARTINA ARRINGTON Not Available Start: 01-18-2025 End: 01-18-2025 Office outpatient visit 15 minutes Martina Arrington PA Work Phone: [facility] Comment on above: Third trimester preg lisa ([facility]); 29 weeks gestation of ([facility]) Start: 01-18-2025 End: 01-18-2025 Bamboo flowsheet Martina [...] Work Phone: [facility] Unsolicited Start: 12-01-2024 End: 12-01-2024 Clinisync Result Encounter Ranjit Robb DO Work Phone: [facility] External Department Unsolicited Start: 11-30-2024 End: 11-30-2024 Office outpatient visit 15 minutes Ranjit Robb DO Work Phone: [facility] Comment on above: 22 weeks gestation o f ; Second trimester ; Encounter for follow-up ultrasound of anatomy; Diabetes mellitus screening; Nausea and vomiting during Start: 11-30-2024 End: 11-30-2024 ambulatory RANJIT ROBB Not Available Start: 11-30-2024 End: 11-30-2024 Bamboo flowsheet Ranjit Robb DO Work Phone: [facility] Start: 11-30-2024 End: 11-30-2024 Bamboo flowsheet Ranjit Robb DO Work Phone: [facility] Start: 11-23-2024 End: 11-23-2024 ambulatory MARTINA ARRINGTON Not Available Start: 11-09-2024 End: 11-09-2024 Bamboo flowsheet Ranjit Robb DO Work Phone: [facility] Start: 11-09-2024 End: 11-09-2024 Bamboo flowsheet Ranjit Robb DO Work Phone: [facility] Start: 11-09-2024 End: 11-09-2024 Office outpatient visit 15 minutes Ranjit Robb DO Work Phone: [facility] Comment on above: 17 weeks gestation o f ; Second trimester ; Stomach cramps; Stomach pain; Nausea and vomiting during Start: 11-09-2024 End: 11-09-2024 ambulatory RANJIT ROBB Not Available Start: 11-08-2024 End: 11-08-2024 Emergency department patient visit Radha Whipple [facility] Start: 11-02-2024 End: 11-02-2024 Office outpatient visit 15 minutes Martina SALAZAR Work Phone: [facility] Comment on above: Screening, , for anatomic survey; Second trimester ; 18 weeks gestation of ; Vaginal discharge; STD exposure Start: 11-02-2024 End: 11-02-2024 ambulatory MARTINA ARRINGTON Not Available Start: 11-02-2024 End: 11-02-2024 Bamboo flowsheet Martina SALAZAR Work Phone: [facility] Start: 11-02-2024 End: 11-04-2024 Bamboo flowsheet Martina SALAZAR Work Phone: [facility] Start: 11-02-2024 End: 11-04-2024 External Result Encounter Ranjit Robb DO Work Phone: [facility] External Department Unsolicited Start: 09-26-2024 End: 09-26-2024 Bamboo flowsheet Ranjit Robb DO Work Phone: [facility] Start: 09-26-2024 End: 09-26-2024 Bamboo flowsheet Ranjit Robb DO Work Phone: [facility] Start: 09-26-2024 End: 09-26-2024 Office outpatient visit 15 minutes Ranjit Robb DO Work Phone: [facility] Comment on above: 13 weeks gestation o f ; Second trimester ; Nausea and vomiting, unspecified vomiting type Start: 09-26-2024 End: 09-26-2024 ambulatory RANJIT ROBB Not Available Start: 09-09-2024 End: 09-09-2024 Emergency department patient visit Fredi Ellington MD Work Phone: [facility] Work Phone: Start: 09-09-2024 Registered Recurring Fredi hicks MD Work Phone: [facility] Credible Start: 09-06-2024 End: 09-06-2024 Telephone encounter Tracie Ferrell MA [facility] Start: 08-31-2024 End: 08-31-2024 Clinisync Result Encounter Ranjit Robb DO Work Phone: [facility] External Department Unsolicited Start: 08-31-2024 End: 08-31-2024 Clinisync Result Encounter Ranjit Arnettzio DO Work Phone: [facility] External Department Unsolicited Start: 08-25-2024 End: 08-25-2024 ambulatory [facility] Robb Nurse [facility] Comment on above: GA: [id number] Start: 08-21-2024 End: 08-21-2024 Emergency department patient visit Migue Farrell [facility] Start: 08-11-2024 End: 08-11-2024 Office outpatient visit 15 minutes Peyton Quiroz [employer] Work Phone: [facility] Comment on above: Psychogenic nonepile ptic seizure (CMS/HCC) (Primary Dx); Mood disorder (CMS/HCC); Altered mental status, unspecified altered mental status type Start: 08-11-2024 End: 08-11-2024 ambulatory PEYTON QUIROZ Not Available Start: 08-11-2024 End: 08-11-2024 Bamboo flowsheet Peyton Quiroz [employer] Work Phone: [facility] Start: 08-11-2024 End: 08-11-2024 Bamboo flowsheet Peyton Riddler [employer] Work Phone: [facility] Start: 06-26-2024 End: 06-27-2024 Emergency department patient visit Hannan Vazquezner [facility] Start: 05-22-2024 End: 05-22-2024 Emergency department patient visit Han Bolaños [facility] Start: 05-02-2024 End: 05-02-2024 ambulatory Zenon Hernandez Facility:[facility] Start: 05-02-2024 End: 05-02-2024 Patient encounter procedure Zenon Hernandez [facility] Start: 04-25-2024 End: 04-25-2024 ambulatory Zenon Hernandez Facility:[facility] Start: 04-25-2024 End: 04-25-2024 Patient encounter procedure Zenon Hernandez [facility] Start: 04-14-2024 End: 04-14-2024 Emergency department patient visit Migue Farrell Facility:[facility] Start: 04-10-2024 End: 04-10-2024 Emergency department patient visit Ko Draper [facility] Start: 04-07-2024 End: 04-07-2024 ambulatory Zenon Hernandez Facility:[facility] Start: 04-07-2024 End: 04-07-2024 Patient encounter procedure Zenon Hernandez [facility] Start: 03-31-2024 ambulatory Zenon Hernandez Faci lity:[facility] Start: 03-31-2024 End: 03-31-2024 Patient encounter procedure Zenon Hernandez [facility] Start: 03-14-2024 End: 03-15-2024 Emergency department patient visit Han SLaurita Bolaños [facility] Start: 03-03-2024 End: 03-03-2024 ambulatory Zenon Hernandez Facility:[facility] Start: 03-03-2024 End: 03-03-2024 Patient encounter procedure Zenon Hernandez [facility] Start: 02-16-2024 End: 02-16-2024 ambulatory Radha Cantor Facility:[facility] Start: 02-16-2024 End: 02-16-2024 Patient encounter procedure Radha Cantor [facility] Start: 02-09-2024 End: 02-09-2024 ambulatory Zenon Hernandez Facility:[facility] Start: 02-09-2024 End: 02-09-2024 Patient encounter procedure Radha Cantor [facility] [place] Start: 01-28-2024 ambulatory Mckittrick Start: 01-25-2024 ambulatory Migue Farrell Facility :[facility] Start: 01-22-2024 End: 01-22-2024 ambulatory Zenon Hernandez Facility:[facility] Start: 01-22-2024 End: 01-22-2024 Patient encounter procedure Zenon Hernandez [facility] Start: 01-14-2024 ambulatory Migue Farrell Facility :[facility] Start: 01-13-2024 End: 01-13-2024 [facility] Start: 01-12-2024 End: 01-12-2024 Emergency department patient visit Radha Whipple Facility:[facility] Start: 06-30-2023 ambulatory VALORIE HANSEN [facility] Start: 06-30-2023 End: 06-30-2023 Office outpatient new 30 minutes Valorie Hansen MD Work Phone: [facility] Comment on above: Macromastia (Primary Dx); Thoracic spine pain Start: 05-11-2023 End: 05-13-2023 Evaluation and management of inpatient Hasarchana AMIDivya [facility] Start: 03-16-2023 End: 03-16-2023 Emergency department patient visit Radha Whipple [facility] Start: 03-10-2023 End: 03-13-2023 Evaluation and management of inpatient MD Fredi Ellington Work Phone: [facility] Work Phone: Start: 03-10-2023 End: 03-10-2023 ambulatory FREDI Shahzad [facility] Start: 03-08-2023 End: 03-10-2023 Evaluation and management of inpatient Lawrence Reveles Facility:[facility] Start: 03-07-2023 End: 03-10-2023 Evaluation and management of inpatient Orlando Wade [facility] Start: 02-27-2023 End: 02-27-2023 ambulatory MISTY MACKEY Facility:[facility] Start: 02-27-2023 End: 02-27-2023 Patient encounter procedure MISTY MACKEY [facility] Start: 11-14-2022 End: 11-14-2022 ambulatory FREDI Shahzad [facility] Start: 11-13-2022 End: 11-13-2022 Emergency department patient visit Wilfredo Villareal [facility] Start: 11-05-2022 End: 11-06-[address] FREDI ELLINGTON . Facility:[facility] Start: 11-05-2022 End: 11-05-2022 ambulatory TEENA TRAN . Facility:[facility] Start: 10-15-2022 End: 10-15-2022 ambulatory JUAN MIGUEL HUYNH [facility] Start: 10-13-2022 End: 10-13-2022 ambulatory FREDI M Em [facility] Start: 10-10-2022 End: 10-11-2022 Emergency department patient visit Ko Draper [facility] Start: 10-06-2022 End: 10-06-2022 ambulatory FREDI ELLINGTON [facility] Start: 10-05-2022 End: 10-06-2022 Emergency department patient visit Han IbrahimLaurita Bolaños [facility] Start: 10-03-[address] FREDI ELLINGTON . Facili ty:[facility] Start: 09-25-2022 End: 09-26-[address] FREDI ELLINGTON . Facility:[facility] Start: 09-24-2022 End: 09-25-[address] FREDI ELLINGTON . Facility:[facility] Start: 09-11-2022 End: 09-11-[address] FREDI ELLINGTON . Facility:[facility] Start: 08-05-2022 End: 08-05-[address] FREDI ELLINGTON . Facility:[facility] Start: 07-31-2022 End: 07-31-2022 ambulatory MD Fredi Ellington Work Phone: [facility] Work Phone: Start: 07-31-2022 End: 07-31-2022 Patient encounter procedure MD Fredi Ellington Work Phone: [facility] [place] Work Phone: Start: 07-24-2022 End: 07-24-[address] FREDI ELLINGTON . Facility:[facility] Start: 07-23-2022 End: 07-23-[address] FREDI ELLINGTON . Facility:[facility] Start: 07-08-2022 End: 07-08-2022 Emergency department patient visit Ko Draper [facility] Start: 07-08-2022 End: 07-08-[address] FREDI ELLINGTON . Facility:[facility] Start: 07-04-2022 End: 07-04-2022 Emergency department patient visit Radha Whipple [facility] Start: 07-02-2022 End: 07-02-2022 Emergency department patient visit Wilfredo Villareal [facility] Start: 06-25-2022 End: 06-25-[address] FREDI ELLINGTON . Facility:[facility] Start: 06-20-2022 End: 06-20-[address] FREDI ELLINGTON . Facility:[facility] Start: 05-26-2022 End: 05-26-[address] FREDI ELLINGTON . Facility:[facility] Start: 05-14-2022 End: 05-14-2022 ambulatory FREDI ELLINGTON [facility] Start: 04-26-2022 End: 04-27-[address] FREDI ELLINGTON . Facility:[facility] Start: 04-04-2022 End: 04-04-2022 Patient encounter procedure MISTY MACKEY [facility] Start: 03-20-2022 End: 03-20-[address] FREDI ELLINGTON . Facility:[facility] Start: 03-05-2022 End: 03-05-[address] FREDI ELLINGTON . Facility:[facility] Start: 01-17-2022 End: 01-17-[address] FREDI ELLINGTON . Facility:[facility] Start: 12-04-2021 End: 12-05-2021 Emergency department patient visit Wilfredo Villareal [facility] Start: 09-02-2018 Patient encounter procedure Martina Bedolla Facility:[id number] Start: 03-29-2018 Patient encounter procedure Martina Bedolla Facility:[id number] Start: 03-18-2018 Patient encounter procedure Liss Salvador Facility:[id number] Start: 01-25-2018 Patient encounter procedure Martina Bedolla Facility:[id number] Procedures Date Procedure Procedure Detail Performing Clinician Start: 03-21-2025 Urnls dip stick/tabl et rgnt non-auto w/o micrscp Ranjit Robb DO Work Phone: Start: 03-15-2025 Urnls dip stick/tabl et rgnt non-auto w/o micrscp Ranjit Robb DO Work Phone: Start: 03-09-2025 Urnls dip stick/tabl et rgnt [...] Detail Author Start: 01-29-2028 Tetanus vaccination TETANUS [facility] Start: 04-03-2025 Influenza vaccination N [facility] Start: 03-21-2025 End: 09-21-2025 US biophysical profile w non stress test US biophysical profile w non stress test Imaging Routine Elevated BP without diagnosis of hypertension Expected: 03/21/2025 (Approximate), Expires: 09/21/2025 [facility] Work Phone: Comment on above: Expected: 03/21/2025 (Approximate), Expires: 09/21/2025 Start: 03-21-2025 End: 03-21-2025 Patient encounter procedure [facility]in [facility] Comment on above: Arrived Start: 03-15-2025 End: 03-15-2025 Patient encounter procedure [facility] Comment on above: Arrived Start: 03-09-2025 End: 03-09-2025 Patient encounter procedure 03/09/2025 9:20 AM EDT Routine KEV MILLER [address] [place] [phone] Martina Arrington PA [address] [place] [address] [facility] Start: 03-02-2025 End: 03-02-2026 CULTURE, GROUP B STREP WITH SUSCEPTIBLITY CULTURE, GROUP B STREP WITH SUSCEPTIBLITY Lab Routine Third trimester ([facility]) Expected: 03/02/2025, Expires: 03/02/2026 [facility] Work Phone: Comment on above: Expected: 03/02/2025 , Expires: 03/02/2026 Start: 02-23-2025 End: 02-23-2025 Patient encounter procedure 02/23/2025 9:00 AM EDT Routine [facility] [address] [place] [address] Ranjit Zamudio DO [address] [place], [place] [id number] [facility] Start: 02-21-2025 End: 02-21-2025 Patient encounter procedure 02/21/2025 1:00 PM EDT Office Visit MARTINA [facility] [address] [place] [phone] Peyton Quiroz NP [address] [place], [place] MARTINA CONKLIN Start: 02-16-2025 End: 02-16-2025 Patient encounter procedure 02/16/2025 11:40 AM EDT Routine [facility] [address] [place] [address] Martina Arrington PA [address] [place] [address] [facility] Start: 02-16-2025 End: 02-16-2025 Professional / ancillary services management 02/16/2025 11:00 AM EDT Ancillary Procedure [facility] [address] [place] [address] [facility] Start: 02-01-2025 End: 06-04-2025 US for US OB follow up transabdominal approach Imaging Routine size inconsistent with dates ([facility]) Expected: 02/01/2025, Expires: 06/04/2025 [facility] Work Phone: Comment on above: Expected: 02/01/2025 , Expires: 06/04/2025 Start: 01-16-2025 End: 01-16-2025 Patient encounter procedure 01/16/2025 2:10 PM EDT Routine [facility] [address] [facility] [place] [phone] Ranjit Zamudio, DO [address] [place] [address] [facility] Start: 12-28-2024 End: 12-28-2024 Patient encounter procedure 12/28/2024 2:30 PM EDT Routine [facility] [address] [facility] [place] [phone] Ranjit Zamudio, DO [address] [place] [address] [facility] Start: 12-28-2024 End: 12-28-2024 Professional / ancillary services management 12/28/2024 2:00 PM EDT Ancillary Procedure [facility] [address] [facility] [place] [address] [facility] Start: 11-30-2024 End: 11-30-2024 Patient encounter procedure [facility] Comment on above: Arrived Start: 11-30-2024 End: 11-30-2025 CBC panel - Blood by Automated count CBC Lab Routine Diabetes mellitus screening Expected: 11/30/2024 (Approximate), Expires: 11/30/2025 [facility] Comment on above: Expected: 11/30/2024 (Approximate), Expires: 11/30/2025 Start: 11-30-2024 End: 11-30-2025 Measurement of glucose 1 hour after glucose challenge for glucose tolerance test Glucose tolerance, 1 hour Lab Routine Diabetes mellitus screening Expected: 11/30/2024 (Approximate), Expires: 11/30/2025 [facility] Comment on above: Expected: 11/30/2024 (Approximate), Expires: 11/30/2025 Start: 11-30-2024 End: 03-01-2025 US for US OB limited 1+ fetuses Imaging Routine Encounter for follow-up ultrasound of anatomy Expected: 11/30/2024, Expires: 03/01/2025 [facility] Work Phone: Comment on above: Expected: 11/30/2024 , Expires: 03/01/2025 Start: 11-23-2024 End: 11-23-2024 Professional / ancillary services management 11/23/2024 10:00 AM EDT Ancillary Procedure [facility] [address] [facility] [place] [phone] [facility] Start: 11-09-2024 End: 11-09-2024 Patient encounter procedure 11/09/2024 1:00 PM EDT Routine [facility] [address] [facility] [place] [phone] Ranjit Zamudio DO [address] [place] [address] Arrived [facility] Comment on above: Arrived Start: 11-02-2024 End: 11-02-2024 Patient encounter procedure 11/02/2024 2:50 PM EDT Routine [facility] [address] [facility] [place] [phone] Martina Arrington PA [address] [place] [address] Arrived [facility] Comment on above: Arrived Start: 11-02-2024 End: 01-02-2025 Alpha fetoprotein, maternal Alpha fetoprotein, maternal Lab Routine 18 weeks gestation of Expected: 11/02/2024 (Approximate), Expires: 01/02/2025 [facility] Comment on above: Expected: 11/02/2024 (Approximate), Expires: 01/02/2025 Start: 11-02-2024 End: 11-02-2025 US for US OB 14+ weeks anatomy scan Imaging Routine Screening, , for anatomic survey Expected: 11/02/2024, Expires: 11/02/2025 [facility] Comment on above: Expected: 11/02/2024 , Expires: 11/02/2025 Start: 10-25-2024 End: 10-25-2024 Patient encounter procedure 10/25/2024 1:30 PM EDT Routine [facility] [address] [place] [address] Martina Arrington PA [address] [facility] [place] [address] [facility] Start: 09-26-2024 End: 09-26-2024 Patient encounter procedure [facility] Comment on above: Arrived Start: 08-25-2024 End: 08-25-2025 ABO/Rh ABO/Rh Lab Routine Missed menses , unspecified gestational age Expected: 08/25/2024 (Approximate), Expires: 08/25/2025 [facility] Comment on above: Expected: 08/25/2024 (Approximate), Expires: 08/25/2025 Start: 08-25-2024 End: 08-25-2025 Blood type and Indirect antibody screen panel - Blood Type and screen Lab Routine Missed menses , unspecified gestational age Expected: 08/25/2024 (Approximate), Expires: 08/25/2025 [facility] Work Phone: Comment on above: Expected: 08/25/2024 (Approximate), Expires: 08/25/2025 Start: 08-25-2024 End: 08-25-2025 Drugs of abuse panel - Urine by Screen method Rapid drug screen, urine Lab Routine , unspecified gestational age Encounter for supervision of normal first in first trimester Expected: 08/25/2024 (Approximate), Expires: 08/25/2025 [facility] Comment on above: Expected: 08/25/2024 (Approximate), Expires: 08/25/2025 Start: 08-25-2024 End: 08-25-2024 ambulatory 08/25/2024 1:30 PM EST Initial [facility] [address] [place] [address] [facility] Start: 08-25-2024 End: 08-25-2024 Professional / ancillary services management 08/25/2024 1:00 PM EST Ancillary Procedure [facility] [address] [place] [address] [facility] Start: 08-11-2024 End: 08-11-2024 Patient encounter procedure 08/11/2024 4:20 PM EST Office Visit MARTINA LYN [address] [place] [address] Peyton Quiroz, [employer] [address] [place], [place] Arrived [facility] LYN Comment on above: Arrived Start: 04-03-2024 Influenza vaccination Influenza Vacc ine (#1) [facility] Start: 04-03-2023 COVID-19 VACCINE ( season) COVID-19 VACCINE () [facility] Start: 03-13-2023 [facility] Start: 03-10-2023 Hospital admission [facility] Start: 03-10-2023 [facility] Start: 2020 Screening for Chlamy patricia trachomatis CHLAMYDIA SCREEN [facility] Start: 12-31-2019 HIV screening HIV SCREENING DISCUSSI ON [facility] Start: 2004 Hepatitis C screening HEPATITI S C VIRUS SCREENING [facility] Start: 2004 Screening for Chlamy patricia trachomatis GONORRHEA SCREEN [facility] Bacteria identified in Urine by Culture Urine culture Microbiology Routine Missed menses Ordered: 08/25/2024 [facility] Comment on above: Ordered: 08/25/2024 CBC W Auto Different ial panel - Blood CBC and differential Lab Routine Missed menses , unspecified gestational age Ordered: 08/25/2024 [facility] Comment on above: Ordered: 08/25/2024 CHLAMYDIA TRACHOMATI S (GENITO/STI) CHLAMYDIA TRACHOMATIS (GENITO/STI) Lab Routine Vaginal discharge STD exposure Ordered: 11/02/2024 [facility] Comment on above: Ordered: 11/02/2024 Hemoglobin A1c/Hemoglobin.total in Blood Hemoglobin A1c Lab Routine Missed menses , unspecified gestational age Ordered: 08/25/2024 [facility] Comment on above: Ordered: 08/25/2024 Hepatitis B virus surface Ag [Presence] in Serum or Plasma by Immunoassay Hepatitis B surface antigen Lab Routine Missed menses , unspecified gestational age Ordered: 08/25/2024 [facility] Comment on above: Ordered: 08/25/2024 Hepatitis C virus Ab [Presence] in Serum or Plasma by Immunoassay Hepatitis C antibody Lab Routine Missed menses , unspecified gestational age Ordered: 08/25/2024 [facility] Comment on above: Ordered: 08/25/2024 HIV-1/HIV-2 antigen/antibody combination immunoassay HIV-1 and HIV-2 antibodies Lab Routine Missed menses , unspecified gestational age Ordered: 08/25/2024 [facility] Comment on above: Ordered: 08/25/2024 Neisseria gonorrhoea e DNA [Presence] in Unspecified specimen by CHRISTIAN with probe detection Neisseria gonorrhea DNA probe, direct Lab Routine Vaginal discharge STD exposure Ordered: 11/02/2024 [facility] Comment on above: Ordered: 11/02/2024 Patient Education [facility] Work Phone: Patient referral [facility] Work Phone: Reagin Ab [Presence] in Serum by RPR RPR Lab Routine Missed menses , unspecified gestational age Ordered: 08/25/2024 [facility] Comment on above: Ordered: 08/25/2024 Rubella antibody, IgG Rubella an tibody, IgG Lab Routine Missed menses , unspecified gestational age Ordered: 08/25/2024 [facility] Comment on above: Ordered: 08/25/2024 SURESWAB(R) ADVANCED VAGINITIS PLUS, TMA SURESWAB(R) ADVANCED VAGINITIS PLUS, TMA Pathology and Cytology Routine Vaginal discharge STD exposure Ordered: 11/02/2024 [facility] Work Phone: Comment on above: Ordered: 11/02/2024 Immunizations Immunization Date Immunization Notes Care Provider Hope ackerman 05-06-2023 influenza virus vaccine, unspecified formulation Zenon Hernandez [facility] 10-03-2022 SARS-CoV-2 (COVID-19 ) [id number] Orlando Paster [facility] 07-31-2022 meningococcal B vaccine, fully recombinant Orlando Paster [facility] 07-31-2022 SARS-CoV-2 (COVID-19 ) [id number] vaccine Orlando Paster [facility] 07-01-2022 influenza virus vaccine, unspecified formulation Orlando Paster [facility] 07-01-2022 meningococcal ACWY vaccine, unspecified formulation Orlando Paster [facility] 07-01-2022 meningococcal B vaccine, fully recombinant Orlando Paster [facility] 07-01-2022 SARS-CoV-2 (COVID-19 ) [id number] vaccine Orlando Paster [facility] 08-09-2019 HPV, unspecified formulation Orlando Paster [facility] 08-09-2019 influenza virus vaccine, unspecified formulation Orlando Paster [facility] 01-28-2018 meningococcal ACWY vaccine, unspecified formulation Orlando Paster [facility] 01-28-2018 tetanus toxoid, redu elisabeth diphtheria toxoid, and acellular pertussis vaccine, adsorbed Orlando Paster [facility] 01-26-2018 HPV, unspecified formulation Orlando Paster [facility] 07-21-2011 hepatitis A vaccine, unspecified formulation Orlando Paster [facility] 07-21-2011 influenza virus vaccine, live, attenuated, for intranasal use Zenon Hernandez [facility] 01-16-2011 Diphtheria, tetanus toxoids and acellular pertussis vaccine, and poliovirus vaccine, inactivated Orlando Paster [facility] 01-16-2011 hepatitis A vaccine, unspecified formulation Orlando Paster [facility] 01-16-2011 measles, mumps, rubella, and varicella virus vaccine Orlando Paster [facility] 04-20-2006 diphtheria, tetanus toxoids and acellular pertussis vaccine Orlando Paster [facility] 04-20-2006 varicella virus vaccine Will alexis Paster [facility] 01-28-2006 Hib, unspecified formulation [place] Paster [facility] 01-28-2006 measles, mumps and rubella virus vaccine [place] Paster [facility] 07-23-2005 DTaP-hepatitis B and poliovirus vaccine [place] Paster [facility] 07-23-2005 haemophilus influenz ae type b vaccine, PRP-T conjugate [place] Paster [facility] 05-28-2005 DTaP-hepatitis B and poliovirus vaccine [place] Paster [facility] 05-28-2005 haemophilus influenz ae type b vaccine, PRP-T conjugate Orlando Paster [facility] 03-27-2005 DTaP-hepatitis B and poliovirus vaccine Orlando Paster [facility] 03-27-2005 haemophilus influenz ae type b vaccine, PRP-T conjugate [place] Espinodivya [facility] 2004 hepatitis B vaccine, pediatric or pediatric/adolescent dosage [place] Espinodivya [facility] Payers Date Payer Category Payer Private Health Insurance [employer] [id number] 2023 Unknown [id number] 2022 Self-pay [id number] 2004 Unknown [id number] 2.16.840.1.002569.3.579.2. 479 2004 Unknown [id number] 2.16.840.1.131213.3.579.2. 983 2004 Unknown [id number] 2.16.840.1.547919.3.579.2. 727 2004 Unknown [id number] 2.16.840.1.065556.3.579.2. 727 2004 Unknown [id number] 2.16.840.1.702612.3.579.2. 727 2004 Unknown [id number] 2.16.840.1.395308.3.579.2. 727 2004 Unknown [id number] 2.16.840.1.926134.3.579.2 2004 Unknown [id number] 2.16.840.1.559123.3.579.2 2004 Unknown [id number] 2.16.840.1.008107.3.579.2 2004 Unknown [id number] 2.16.840.1.418150.3.579.2 2004 Unknown [id number] 2.16.840.1.876249.3.579.2 2004 Unknown [id number] 2.16.840.1.463498.3.579.2 2004 Unknown [id number] 2.16.840.1.399906.3.579.2 2004 Unknown [id number] 2.16840.1.201284.3.579.2 2004 Unknown [id number] 2.16.840.1.309627.3.579.2 2004 Unknown [id number] 2.16.840.1.065595.3.579.2 2004 Unknown [id number] 2.16.840.1.286619.3.579.2 2004 Unknown [id number] 2.16.840.1.755012.3.579.2 2004 Unknown [id number] 2.16.840.1.656172.3.579.2 2004 Unknown [id number] 2.16.840.1.500909.3.579.2 2004 Unknown [id number] 2.16.840.1.658176.3.579.2 2004 Unknown [id number] 2.16.840.1.192412.3.579.2 2004 Unknown [id number] 2.16.840.1.682640.3.579.2. 2004 Unknown [id number] 2.16.840.1.974712.3.579.2. 2004 Unknown [id number] 2.16.840.1.991771.3.579.2 2004 Unknown [id number] 2.16.840.1.300313.3.579.2. 2004 Unknown [id number] 2.16.840.1.009642.3.579.2 2004 Unknown [id number] 2.16.840.1.566472.3.579.2 2004 Unknown [id number] 2.16.840.1.797601.3.579.2 2004 Unknown [id number] 2.16840.1.232108.3.579.2 2004 Unknown [id number] 2.16840.1.295188.3.579.2 2004 Unknown [id number] 2.16.840.1.139069.3.579.2 2004 Unknown [id number] 2.16840.1.610047.3.579.2 2004 Unknown [id number] 2.16840.1.896701.3.579.2. 2004 Unknown [id number] 2.16.840.1.003202.3.579.2 2004 Unknown [id number] 2.16.840.1.893535.3.579.2. 1258 2004 Unknown [id number] 2.16.840.1.365542.3.579.2. 1258 2004 Unknown [id number] 2.16.840.1.082138.3.579.2. 1258 2004 Unknown [id number] 2.16.840.1.326722.3.579.2. 1258 2004 Unknown [id number] 2.16.840.1.191674.3.579.2. 1258 2004 Unknown [id number] 2.16.840.1.987364.3.579.2. 1258 2004 Unknown [id number] 2.16840.1.331689.3.579.2. 1258 2004 Unknown [id number] 2.16840.1.193974.3.579.2. 1258 2004 Unknown [id number] 2.16840.1.733622.3.579.2. 1258 2004 Unknown [id number] 2.16840.1.549410.3.579.2. 1258 2004 Unknown [id number] 2.840.1.647006.3.579.2. 1258 2004 Unknown [id number] 2.840.1.639093.3.579.2. 1258 2004 Unknown [id number] 2.840.1.638835.3.579.2. 1258 2004 Unknown [id number] 2.840.1.676629.3.579.2. 1258 2004 Unknown [id number] 2.840.1.294199.3.579.2. 1258 2004 Unknown [id number] 2.16840.1.711308.3.579.2. 1258 2004 Unknown [id number] 2.16840.1.654722.3.579.2. 1258 2004 Unknown [id number] 2.16840.1.639200.3.579.2. 1258 2004 Unknown [id number] 2.16840.1.048880.3.579.2. 1258 1979 Unknown [id number] 2.16.840.1.683628.3.579.2. 356 1979 Unknown [id number] 2.16.840.1.366587.3.579.2. 356 1979 Unknown [id number] 2.16.840.1.672575.3.579.2. 356 1979 Unknown [id number] 2.16.840.1.471398.3.579.2. 356 1979 Unknown [id number] 2.16.840.1.103711.3.579.2. 593 1979 Unknown [id number] 2.16.840.1.914221.3.579.2. 593 1979 Unknown [id number] 2.16.840.1.750698.3.579.2. 593 1979 Unknown [id number] 2.840.1.401428.3.579.2. 593 1979 Unknown [id number] 2.16.840.1.639182.3.579.2. 593 1979 Unknown [id number] 2.16.840.1.659984.3.579.2. 593 1979 Unknown [id number] 2.16.840.1.175654.3.579.2. 593 1979 Unknown [id number] 2..840.1.876694.3.579.2. 593 1979 Unknown [id number] 2.16.840.1.506451.3.579.2. 593 1979 Unknown [id number] 2.16.840.1.424291.3.579.2. 593 1979 Unknown [id number] 2.16.840.1.830137.3.579.2. 593 1979 Unknown [id number] 2.16.840.1.563775.3.579.2. 593 1979 Unknown [id number] 2.16.840.1.430562.3.579.2. 593 1979 Unknown [id number] 2.16.840.1.997576.3.579.2. 593 1979 Unknown [id number] 2.16.840.1.960045.3.579.2. 593 1979 Unknown [id number] 2.16.840.1.409108.3.579.2. 593 1979 Unknown [id number] 2.16.840.1.440996.3.579.2. 593 1979 Unknown [id number] 2.16.840.1.302777.3.579.2. 593 1979 Unknown [id number] 2.16.840.1.842466.3.579.2. 479 1979 Unknown [id number] 2.16.840.1.707474.3.579.2. 479 1979 Unknown [id number] 2.16.840.1.906704.3.579.2. 479 1979 Unknown [id number] 2.16.840.1.584057.3.579.2. 479 1979 Unknown [id number] 2.16.840.1.987893.3.579.2. 479 1959 Unknown [id number] 1959 Unknown [id number] Unknown [id number] 2.16.840.1.251806.3.579.2. 531 Unknown [id number] 2.16.840.1.361340.3.579.2. 531 Social History Date Type Detail Facility Start: 12-04-2021 End: 03-01-2024 Tobacco smoking status Never smoked tobacco (finding) [facility] Start: 06-30-2023 End: 08-11-2024 Sex Assigned At Female [facility] Tobacco [facility] Comment on above: denies Denies. Tobacco smoking status Alfonzo stokes [facility] Start: 2004 Sex Assigned At Female F [facility] Start: 06-30-2023 Tobacco smoking stat [facility] Occasional tobacco smoker [facility] Start: 06-30-2023 End: 08-11-2024 History of Social function [facility] Start: 06-30-2023 [facility] Start: 2004 Sex Assigned At Not on file A [facility] Start: 03-01-2024 Tobacco use and exposure Smokeless tobacco non-user [facility] Start: 08-11-2024 End: 03-21-2025 Alcoholic beverage intake Lifetime non-drinker (finding) [facility] Start: 02-03-2024 Alcohol Comment caffeine: 1-2 cups per day [facility] Start: 07-07-2024 [facility] Start: 09-09-2024 Tobacco smoking stat [facility] Ex-smoker (finding) [facility] Start: 11-14-2009 End: 09-09-2024 Sex Female (finding) [facility] Goals Date Patient Goal Desired Activity /State Functional Status Date Assessment Result Facility 11-08-2024 Functional Status N/A [facility] 08-21-2024 Functional Status N/A [facility] 06-26-2024 Functional Status N/A [facility] 05-22-2024 Functional Status N/A [facility] 04-25-2024 Functional Status N/A [facility] 04-14-2024 Functional Status N/A [facility] 04-10-2024 Functional Status N/A [facility] 03-14-2024 Functional Status N/A [facility] 01-22-2024 Functional Status N/A [facility] 01-13-2024 Functional Status N/A [facility] 01-12-2024 Functional Status N/A [facility] 05-11-2023 Functional Status N/A [facility] 03-16-2023 Functional Status N/A [facility] 03-13-2023 Functional status Patient at [facility] Work Phone: 03-07-2023 Functional Status N/A [facility] 03-07-2023 Functional Status [facility] 11-13-2022 Functional Status N/A [facility] 10-10-2022 Functional Status N/A [facility] 10-05-2022 Functional Status N/A [facility] 07-08-2022 Functional Status N/A [facility] 07-04-2022 Functional Status N/A [facility] 07-02-2022 Functional Status N/A [facility] Mental Status Date Assessment Result Facility 03-13-2023 Cognitive function Cognitive Sta tus Patient at [facility] Work Phone: Clinical Notes 07-02-2022 to 03-21-2025 Kaila Larkin LPN - 03/21/2025 11:00 AM EDTKaila Larkin LPN - 03/15/2025 11:20 AM MARIE Sameul - 03/09/2025 9:20 AM MARIE Samuel - 03/02/2025 10:50 AM MARIE Samuel - 02/16/2025 11:40 AM EDT Note Date & Type Note Facility 03-21-2025 History of Present illness Narrative Reason for [...] (HCC) Depression DMDD (disruptive mood dysregulation disorder) ([facility]) History of being hospitalized 2020 HISTORY PAST MEDICAL HISTORY SOCIAL HISTORY Past Medical History: Diagnosis Date Anxiety Asthma ([facility]) Depression DMDD (disruptive mood dysregulation disorder) ([facility]) History of being hospitalized 2020 seizure Social [...] appearance. She is well-developed. Genitourinary: Vulva normal. Cardiovascular: Rate and Rhythm: Normal rate and [...] nursing note reviewed. Exam conducted with a hydrostatic tester present. Vitals: Estimated body mass index is 41.5 kg/m as calculated from the following: Height as of 08/11/24: 5' 6 . Weight as of this encounter: 257 lb 1.9 oz. BP: 138/86 Patient's last menstrual period was 06/23/2024. ASSESSMENT & PLAN ICD-10-CM 1. 38 weeks gestation of ([facility]) Z3A.38 POCT urinalysis dipstick manually resulted 2. Third trimester ([facility]) Z34.93 POCT urinalysis dipstick manually resulted Return OB: Patient presents today for a routine obstetrics appointment. Patient is currently 38w5d . Patient states she is doing well but has complaints of being tired due to current . Patient has verbalizes frequent movement. labor precautions was discussed/given and patient was instructed to perform kick counts three times a day. Pt feels baby kicking harder, feels like baby is coming. Pt to be delivered 03/23/25 at 0500 Orders Placed This Encounter Procedures POCT urinalysis dipstick manually resulted Follow Up: Patient is to return to office in 1 week for routine OB appointment. Documented by Kaila Larkin LPN on behalf of: Ranjit Zamudio DO documented in this encounter [facility] 03-15-2025 History of Present illness Narrative Reason for [...] (HCC) Depression DMDD (disruptive mood dysregulation disorder) ([facility]) History of being hospitalized 2020 HISTORY PAST MEDICAL HISTORY SOCIAL HISTORY Past Medical History: Diagnosis Date Anxiety Asthma (HCC) Depression DMDD (disruptive mood dysregulation disorder) ([facility]) History of being hospitalized 2020 seizure Social [...] appearance. She is well-developed. Genitourinary: Vulva normal. Cardiovascular: Rate and Rhythm: Normal rate and [...] nursing note reviewed. Exam conducted with a hydrostatic tester present. Vitals: Estimated body mass index is 41.77 kg/m as calculated from the following: Height as of 08/11/24: 5' 6 . Weight as of this encounter: 258 lb 12.8 oz. BP: 120/78 Patient's last menstrual period was 06/23/2024. ASSESSMENT & PLAN ICD-10-CM 1. 37 weeks gestation of ([facility]) Z3A.37 POCT urinalysis dipstick manually resulted 2. Third trimester ([facility]) Z34.93 POCT urinalysis dipstick manually resulted 3. Stomach pain R10.9 Return OB: Patient presents today for a routine obstetrics appointment. Patient is currently 37w6d . Patient states she is doing well [...] Ranjit Zamudio DO documented in this encounter [facility] 03-09-2025 History of Present illness Narrative Reason [...] ASSESSMENT & PLAN ICD-10-CM 1. Third trimester ([facility]) Z34.93 2. 36 weeks gestation of ([facility] Z3A.36 Return OB: Patient presents today for [...] of: MARIE Flores documented in this encounter [facility] 03-02-2025 History of Present illness Narrative [...] nursing note reviewed. Exam conducted with a hydrostatic tester present. Vitals: Estimated body mass index is 40.74 kg/m as calculated from the following: Height as of 08/11/24: 5' 6 . Weight as of 02/23/25: 252 lb 6.4 oz. BP: Patient's last menstrual period was 06/23/2024. ASSESSMENT & PLAN ICD-10-CM 1. Third trimester ([facility]) Z34.93 POCT urinalysis dipstick manually resulted CULTURE, GROUP B STREP WITH SUSCEPTIBLITY CULTURE, GROUP B STREP WITH SUSCEPTIBLITY 2. 36 weeks gestation of ([facility]) Z3A.36 Patient is doing well but has [...] of: MARIE Flores documented in this encounter [facility] 02-23-2025 History of Present illness Narrative [...] (HCC) Depression DMDD (disruptive mood dysregulation disorder) ([facility]) History of being hospitalized 2020 HISTORY PAST MEDICAL HISTORY SOCIAL HISTORY Past Medical History: Diagnosis Date Anxiety Asthma (HCC) Depression DMDD (disruptive mood dysregulation disorder) ([facility]) History of being hospitalized 2020 seizure Social [...] nursing note reviewed. Exam conducted with a hydrostatic tester present. Vitals: Estimated body mass index is 40.74 kg/m as calculated from the following: Height as of 08/11/24: 5' 6 . Weight as of this encounter: 252 lb 6.4 oz. BP: 118/72 Patient's last menstrual period was 06/23/2024. ASSESSMENT & PLAN ICD-10-CM 1. Stomach pain R10.9 2. Third trimester ([facility]) Z34.93 POCT urinalysis dipstick manually resulted 3. 35 weeks gestation of ([facility]) Z3A.35 Patient presents today for a routine obstetrics appointment. Patient is currently 35w0d with a Estimated Date of Delivery: 03/30/25. Patient still complaints of abdominal pain. Patient to return to clinic in 1 week for GBS and routine OB. Documented by Deneen Rivera LPN on behalf of: Ranjit Zamudio DO documented in this encounter [facility] 02-16-2025 History of Present illness Narrative [...] (HCC) Depression DMDD (disruptive mood dysregulation disorder) ([facility]) History of being hospitalized 2020 HISTORY PAST MEDICAL HISTORY SOCIAL HISTORY Past Medical History: Diagnosis Date Anxiety Asthma (HCC) Depression DMDD (disruptive mood dysregulation disorder) ([facility]) History of being hospitalized 2020 seizure Social [...] ASSESSMENT & PLAN ICD-10-CM 1. Third trimester ([facility]) Z34.93 POCT urinalysis dipstick manually resulted 2. 34 weeks gestation of ([facility]) Z3A.34 Return OB: Patient presents today for [...] routine OB appointment. documented in this encounter [facility] 02-01-2025 History of Present illness Narrative [...] (HCC) Depression DMDD (disruptive mood dysregulation disorder) ([facility]) History of being hospitalized 2020 HISTORY PAST MEDICAL HISTORY SOCIAL HISTORY Past Medical History: Diagnosis Date Anxiety Asthma (HCC) Depression DMDD (disruptive mood dysregulation disorder) ([facility]) History of being hospitalized 2020 seizure Social [...] nursing note reviewed. Exam conducted with a hydrostatic tester present. Vitals: Estimated body mass index is 39.62 kg/m as calculated from the following: Height as of 08/11/24: 5' 6 . Weight as of this encounter: 245 lb 8 oz. BP: 120/80 Patient's last menstrual period was 06/23/2024. ASSESSMENT & PLAN ICD-10-CM 1. Third trimester ([facility]) Z34.93 POCT urinalysis dipstick manually resulted 2. 32 weeks gestation of ([facility]) Z3A.32 Return OB: Patient presents today for [...] Ranjit Zamudio DO documented in this encounter [facility] 01-18-2025 History of Present illness Narrative [...] nursing note reviewed. Exam conducted with a hydrostatic tester present. Vitals: Estimated body mass index is 39.77 kg/m as calculated from the following: Height as of 08/11/24: 5' 6 . Weight as of this encounter: 246 lb 6 oz. BP: 110/76 Patient's last menstrual period was 06/23/2024. ASSESSMENT & PLAN ICD-10-CM 1. Third trimester ([facility]) Z34.93 POCT urinalysis dipstick manually resulted 2. 29 weeks gestation of ([facility]) Z3A.29 Return OB: Patient presents today for [...] Neeta Garrido NP documented in this encounter [facility] 12-28-2024 History of Present illness Narrative [...] Ambulatory Problems Diagnosis Date Noted Mood disorder ([facility]) 02/03/2024 Altered mental status 02/03/2024 Psychogenic nonepileptic seizure 02/03/2024 Resolved Ambulatory Problems Diagnosis Date Noted No Resolved Ambulatory Problems Past Medical History: Diagnosis Date Anxiety Asthma Depression ([facility]) DMDD (disruptive mood dysregulation disorder) ([facility]) History of being hospitalized 2020 HISTORY PAST MEDICAL HISTORY SOCIAL HISTORY Past Medical History: Diagnosis Date Anxiety Asthma Depression ([facility]) DMDD (disruptive mood dysregulation disorder) ([facility]) History of being hospitalized 2020 seizure Social [...] nursing note reviewed. Exam conducted with a hydrostatic tester present. Vitals: Estimated body mass index is [...] Ranjit Zamudio DO documented in this encounter [facility] 11-30-2024 History of Present illness Narrative [...] Ambulatory Problems Diagnosis Date Noted Mood disorder (CMS/HCC) 02/03/2024 Altered mental status 02/03/2024 Psychogenic nonepileptic seizure 02/03/2024 Resolved Ambulatory Problems Diagnosis Date Noted No Resolved Ambulatory Problems Past Medical History: Diagnosis Date Anxiety Asthma Depression (CMS/HCC) DMDD (disruptive mood dysregulation disorder) ([facility]) History of being hospitalized 2020 HISTORY PAST MEDICAL HISTORY SOCIAL HISTORY Past Medical History: Diagnosis Date Anxiety Asthma Depression (CMS/HCC) DMDD (disruptive mood dysregulation disorder) ([facility]) History of being hospitalized 2020 seizure Social [...] nursing note reviewed. Exam conducted with a hydrostatic tester present. Vitals: Estimated body mass index is [...] 22w6d with a Estimated Date of Delivery: 8/28/25. Pt given glucola order and repeat ultrasound to have done in 4 weeks. Pt to return in 4 weeks for scheduled OB appt Documented by Kaila Larkin LPN on behalf of: Ranjit Zamudio DO documented in this encounter [facility] 11-09-2024 History of Present illness Narrative [...] Ambulatory Problems Diagnosis Date Noted Mood disorder ([facility]) 02/03/2024 Altered mental status 02/03/2024 Psychogenic nonepileptic seizure 02/03/2024 Resolved Ambulatory Problems Diagnosis Date Noted No Resolved Ambulatory Problems Past Medical History: Diagnosis Date Anxiety Asthma Depression ([facility]) DMDD (disruptive mood dysregulation disorder) ([facility]) History of being hospitalized 2020 HISTORY PAST MEDICAL HISTORY SOCIAL HISTORY Past Medical History: Diagnosis Date Anxiety Asthma Depression ([facility]) DMDD (disruptive mood dysregulation disorder) ([facility]) History of being hospitalized 2020 seizure Social [...] nursing note reviewed. Exam conducted with a hydrostatic tester present. Vitals: Estimated body mass index is [...] Ranjit Zamudio DO documented in this encounter [facility] 11-08-2024 Hospital Discharge instructions Patient Education [...] water added (diluted fruit juice). Eat bland, iynj-ck-hoaqvg foods in small amounts as you are able. These foods include bananas, applesauce, rice, lean meats, toast, and crackers. Avoid fluids that contain a lot of sugar or caffeine, such as energy drinks, sports drinks, and soda. Avoid alcohol. Avoid spicy or fatty foods. General instructions Take ejyr-bxk-vralrlv and prescription medicines only as told by your health care provider. Drink enough fluid to keep your urine pale yellow. Wash your hands often using soap and water for at least 20 seconds. If soap and water are not available, use hand supervisor grounds. Make sure that everyone in your household [...] eating and drinking to prevent dehydration. Take jdbt-jpm-cdwutcz and prescription medicines only as told by [...] provider. Document Revised: 01/24/2022 Document Reviewed: 01/24/2022 [employer] Patient Education 2023 [employer]. 11/08/2024 18:27:10 Abdominal Pain During Abdominal Pain [...] to keep your urine pale yellow. Take dhty-ybx-pawmdts and prescription medicines only as told by [...] provider. Document Revised: 04/02/2021 Document Reviewed: 04/02/2021 [employer] Patient Education 2023 [employer]. Follow Up Care 11/08/2024 16:08:40 With:Ranjit ZAMUDIO Address: [address] [place] [address]- Business (1) When:11/11/2024 18:16:21 With:Fredi Ellington Address: [address] [place] [phone]- Business (1) When:Within 3 Day(s) [facility] 11-08-2024 Note ED Patient Education Note [...] added (diluted fruit juice). ??? Eat bland, kvub-up-skrymi foods in small amounts as you are able. These foods include bananas, applesauce, rice, lean meats, toast, and crackers. ??? Avoid fluids that contain a lot of sugar or caffeine, such as energy drinks, sports drinks, and soda. ??? Avoid alcohol. ??? Avoid spicy or fatty foods. General instructions ??? Take zrdj-oso-ivsejwu and prescription medicines only as told by your health care provider. ??? Drink enough fluid to keep your urine pale yellow. ??? Wash your hands often using soap and water for at least 20 seconds. If soap and water are not available, use hand supervisor grounds. ??? Make sure that everyone in your [...] and drinking to prevent dehydration. ??? Take hdyr-igd-pokxike and prescription medicines only as told by [...] provider. Document Revised: 01/24/2022 Document Reviewed: 01/24/2022 [employer] Patient Education ? 2023 [employer] Obstetrics and Gynecology Abdominal Pain During Abdominal [...] enough fluid t (more content not included)... [facility] 11-02-2024 History of Present illness Narrative [...] Ambulatory Problems Diagnosis Date Noted Mood disorder ([facility]) 02/03/2024 Altered mental status 02/03/2024 Psychogenic nonepileptic seizure 02/03/2024 Resolved Ambulatory Problems Diagnosis Date Noted No Resolved Ambulatory Problems Past Medical History: Diagnosis Date Anxiety Asthma ([facility]) Depression ([facility]) DMDD (disruptive mood dysregulation disorder) ([facility]) History of being hospitalized 2020 HISTORY PAST MEDICAL HISTORY SOCIAL HISTORY Past Medical History: Diagnosis Date Anxiety Asthma ([facility]) Depression ([facility] DMDD (disruptive mood dysregulation disorder) ([facility]) History of being hospitalized 2020 seizure Social [...] nursing note reviewed. Exam conducted with a hydrostatic tester present. Vitals: Estimated body mass index is [...] of: MARIE Flores documented in this encounter [facility] 09-26-2024 History of Present illness Narrative [...] Ambulatory Problems Diagnosis Date Noted Mood disorder ([facility]) 02/03/2024 Altered mental status 02/03/2024 Psychogenic nonepileptic seizure ([facility]) 02/03/2024 Resolved Ambulatory Problems Diagnosis Date Noted No Resolved Ambulatory Problems Past Medical History: Diagnosis Date Anxiety Asthma ([facility]) Depression ([facility]) DMDD (disruptive mood dysregulation disorder) ([facility]) History of being hospitalized 2020 HISTORY PAST MEDICAL HISTORY SOCIAL HISTORY Past Medical History: Diagnosis Date Anxiety Asthma (CMS/HCC) Depression (CMS/HCC) DMDD (disruptive mood dysregulation disorder) ([facility]) History of being hospitalized 2020 seizure Social [...] nursing note reviewed. Exam conducted with a hydrostatic tester present. Vitals: Estimated body mass index is [...] or undercooked meat, and stay away from [facility]. Patient has been consulted regarding any further [...] Ranjit Zamudio DO documented in this encounter [facility] 09-06-[address] Palma [...] me for my time in this matter. [facility] 09-06-[address] Palma a psych [...] in this matter. documented in this encounter [facility] 08-25-2024 History of Present illness Narrative [...] Ambulatory Problems Diagnosis Date Noted Mood disorder ([facility]) 02/03/2024 Altered mental status 02/03/2024 Psychogenic nonepileptic seizure ([facility]) 02/03/2024 Resolved Ambulatory Problems Diagnosis Date Noted No Resolved Ambulatory Problems Past Medical History: Diagnosis Date Anxiety Asthma ([facility]) Depression ([facility]) DMDD (disruptive mood dysregulation disorder) ([facility]) History of being hospitalized 2020 Family History [...] or undercooked meat, and stay away from [facility]. Patient has also been advised to not [...] Tracie Ferrell MA documented in this encounter [facility] 08-21-2024 Hospital Discharge instructions Patient Education [...] medicines to help relieve symptoms, such as: Twov-ikh-mmpoxko cold medicines. Cough suppressants. Coughing is a [...] and other clear broths. General instructions Take obhr-fns-hhszbyh and prescription medicines only as told by [...] and water are not available, use hand supervisor grounds. Avoid touching your mouth, face, eyes, or [...] provider. Document Revised: 02/19/2022 Document Reviewed: 02/19/2022 [employer] Patient Education 2023 [employer]. 08/21/2024 20:38:01 Morning Sickness Morning Sickness Morning [...] Follow these instructions at home: Medicines Take madr-oxb-epvzlnk and prescription medicines only as told by your health care provider. Do not use any prescription, efjx-gql-qojbnhb, or herbal medicines for morning sickness without [...] provider. Document Revised: 03/04/2021 Document Reviewed: 02/11/2021 [employer] Patient Education 2023 Androcial. Follow Up Care 08/21/2024 16:54:48 With:Cheri Joiner Address: [address] [place] [phone]- Business (1) When:08/24/2024 20:13:36 With:Fredi Ellington Address: [facility] [place] [address]- Business (1) When:08/24/2024 20:13:28 [facility] 08-21-2024 Note ED Patient Education Note [...] to help relieve symptoms, such as: ??? Toht-qsl-uoqbyte cold medicines. ??? Cough suppressants. Coughing is [...] other clear broths. General instructions ??? Take uvnb-szp-ifqgvcy and prescription medicines only as told by [...] and water are not available, use hand supervisor grounds. ??? Avoid touching your mouth, face, eyes, [...] a stiff n (more content not included)... [facility] 08-21-2024 Evaluation + Plan note Diagnostic Tests PendingGroup A Strep by PCR 08/21/24 Future Scheduled TestsBD Bone Density DEXA 04/25/24 [facility] 08-11-2024 History of Present illness Narrative Images from the original note were not included. 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 She started to develop these events where she will black out and then start to shake but can hear people talking to her. She did have myoclonic jerks at times. She did have an awake/sleep EEG 04/12/2021 at [facility] that was normal. Another EEG did [...] was walking to EMS and went to [facility]. She had EKG labs and urine [...] much that day and was at boyfriend's [place]. . . . Plan She has been [...] clinic: 6 months documented in this encounter [facility] 06-27-2024 Hospital Discharge instructions Patient Education [...] products, such as yogurt. General instructions Take gxap-ode-nzsvtwq and prescription medicines only as told by [...] provider. Document Revised: 04/03/2022 Document Reviewed: 04/03/2022 [employer] Patient Education 2023 Androcial. 06/27/2024 00:49:28 Non-Epileptic Seizures, Adult Non-Epileptic Seizures, [...] do if you have a seizure. Take vhpg-igf-qgaraxx and prescription medicines only as told by [...] right away. Call your local emergency services (853 in the [place] Do not drive yourself to the hospital. If you ever feel like you may hurt yourself or others, or have thoughts about taking your own life, get help right away. Go to your nearest emergency department or: Call your local emergency services (431 in the [place] Call a suicide crisis helpline, such as the National Suicide Prevention Lifeline at or 904 in the [place] This is open 24 hours a day in the [place] Text the Crisis Text Line at 994819 (in the [place] Summary Non-epileptic seizures are [...] provider. Document Revised: 02/12/2022 Document Reviewed: 01/04/2021 [employer] Patient Education 2023 Androcial. Follow Up Care 06/26/2024 23:14:27 With:Melecio Rubio Address: [address] [phone]- Business (1) When:06/30/2024 With:Fredi Ellington Address: [address] [place] [phone]- Business (1) When:Within 3 Day(s) [facility] 06-27-2024 Note ED Patient Education Note [...] such as yogurt. General instructions ??? Take rwsc-qez-nkjmhbg and prescription medicines only as told by [...] provider. Document Revised: 04/03/2022 Document Reviewed: 04/03/2022 [employer] Patient Education ? 2023 Androcial. Neurology Non-Epileptic Seizures, Adult A non-epileptic seizure [...] events, such as (more content not included)... [facility] 06-26-2024 Evaluation + Plan note Extrac [...] Tests Radiology* BD Bone Density DEXA 04/25/24 [facility] 10-21-2024 Hospital Discharge instructions Patient Education 05/22/2024 22:41:58 Upper Respiratory Infection, Adult, Vaja-wh-Gmxh Upper Respiratory Infection, Adult An upper respiratory [...] medicines to help relieve symptoms, such as: Xzkb-grj-jsjeukg cold medicines. Medicines to reduce coughing (cough [...] and other clear broths. General instructions Take wdxy-ddi-ufqbzwl and prescription medicines only as told by [...] cannot use soap and water, use hand supervisor grounds. Avoid touching your mouth, face, eyes, or [...] get better within 7 10 days. Take ipxw-fxs-siywddr and prescription medicines only as told by your doctor. This information is not intended to replace advice given to you by your health care provider. Make sure you discuss any questions you have with your health care provider. Document Revised: 02/19/2022 Document Reviewed: 02/19/2022 [employer] Patient Education 2023 Androcial. Follow Up Care 05/22/2024 21:50:15 With:Fredi Ellington Address: [address] [place], [place] [phone] Business (1) When:05/25/2024 Comments:Call for diagnosis based follow up [facility] 10-20-2024 NoteED Patient Education Note Infectious [...] to help relieve symptoms, such as: ? Mehi-yqe-bsuakfq cold medicines. ? Medicines to reduce coughing [...] other clear broths. General instructions ? Take ryun-efy-gdkghys and prescription medicines only as told by [...] cannot use soap and water, use hand supervisor grounds. ? Avoid touching your mouth, face, eyes, [...] get better within 7?10 days. ? Take kzcr-jtv-ealwcfw and prescription medicines only as told by your doctor. This information is not intended to replace advice given (more content not included)...[facility] Evaluation + Plan note Extracted from: Title:ED Note Author:Alexandru Barajas PA-C te:05/22/24 Viral URI (J06.9: Acute uppe r respiratory infection, unspecified) Orders: brompheniramine/dextromethorphan/PSE, 5 mL, Oral, QID for cold symptoms, 200 mL, Refill(s) 0, [facility]/pharmacy #[id number], 170.2, cm, 05/22/24 21:55:00 EDT, Height/Length Dosing, 115.8, kg, 05/22/24 21:55:00 EDT, Weight Dosing dexamethasone, 10 mg = 1 mL, Injection, Oral, Once, Stop date 05/22/24 22:28:00 EDT, STAT, Start date 05/22/24 22:28:00 EDT, [facility]- max dose 12 mg, 05/22/24 22:28:00 EDT ondansetron, 4 mg = 1 tab(s), Oral, q8hr, PRN Nausea/Vomiting, # 12 tab(s), Refills(s) 0, Pharmacy: [facility]/pharmacy #[id number], 170.2, cm, 05/22/24 21:55:00 EDT, Height/Length Dosing, 115.8, kg, 05/22/24 21:55:00 EDT, Weight Dosing Diagnostic Tests Pending * Group A Strep by PCR 05/22/24 Future Scheduled Tests Radiology* BD Bone Density DEXA 04/25/24 [facility] 09-23-2024 Evaluation + Plan note Future Scheduled Tests Radiology* US Thyroid 04/25/24 * BD Bone Density DEXA 04/25/24 [facility] 09-23-2024 Evaluation + Plan note Future Scheduled Tests Radiology* BD Bone Density DEXA 04/25/24 [facility] 09-13-2024 Hospital Discharge instructions Patient Education [...] you until you feel stable. Medicines Take acnv-boy-scdxlzf and prescription medicines only as told by [...] provider. Document Revised: 11/28/2021 Document Reviewed: 11/28/2021 [employer] Patient Education 2023 Androcial. Follow Up Care 04/14/2024 20:02:23 With:Fredi Ellington Address: [address] [place] [address] [place] [phone] Business (1) When:04/17/2024 Comments:Return to the emergency room if the syncopal episode recurs or any new symptoms [facility] 09-12-2024 NoteED Patient Education Note Neurology [...] until you feel stable. Medicines ? Take lnaq-ldp-vwzfwuv and prescription medicines only as told by [...] provider. Document Revised: 11/28/2021 Document Reviewed: 11/28/2021 [employer] Patient Education ? 2023 Androcial.[facility] 04-14-2024 Evaluation + Plan noteExtracted from: Title:ED Note Author:Bud Louis, Migue Kendall te:04/14/24 1. Syncope (R55: Syncope and collapse) Orders: Basic Metabolic Panel CBC w/ Auto Diff CT Head or Brain w/o Contrast Drug Screen Urine ED Cardiac Monitoring eGFR Hepatic Function Panel Magnesium Level Oxygen Saturation Oxygen Therapy PT & PTT Rapid COVID Antigen ([facility]) Saline Lock Insert Troponin 0 Hr. Troponin 1 Hr. U Beta Hcg Qual UA with Cult Rflx XR Chest 2 Views Future Appointments Appointment Date:04/25/2024 01:15:00 PM Scheduled Provider:David MARCANO, Zenon Ratliff Location:[facility] Appointment Type:[facility] Follow Up [facility] 09-08-2024 Evaluation + Plan noteExtracted from: [...] Date:04/25/2024 01:15:00 PM Scheduled Provider:Zenon Hernandez MD Location:[facility] Appointment Type:[facility] Follow Up [facility] 09-08-2024 Hospital Discharge instructions Patient Education 04/10/2024 06:46:15 Syncope, Adult, Pubz-bj-Nldp Syncope, Adult Syncope is when you pass [...] you until you feel better. Medicines Take hwfc-hnz-mwizoas and prescription medicines only as told by [...] away. Call your local emergency services (911 int [place] Do not wait to see if [...] provider. Document Revised: 11/28/2021 Document Reviewed: 11/28/2021 [employer] Patient Education 2023 [employer]rocial. Follow Up Care 04/10/2024 04:30:28 With:Fredi Ellington Address: [address] [place] [phone]- Business (1) When:04/13/2024 06:31:35 Comments:Follow-up with your primary care doctor for further evaluation and management. Please return to theED for any new or worsening symptoms. [facility] 09-08-2024 NoteED Patient Education Note Neurology [...] until you feel better. Medicines ? Take fjlj-dqh-beghdcv and prescription medicines only as told by [...] away. Call your local emergency services (911 int [place] ? Do not wait to see [...] provider. Document Revised: 11/28/2021 Document Reviewed: 11/28/2021 [employer] Patient Education ? 2023 [employer] 03-15-2024 Hospital Discharge instructions Patient Education [...] (911 in the [place] Call the [facility] and human services helpline (211 in the [place] Call or text a suicide hotline to speak with a trained counselor. The following suicide hotlines are available in the [place]: ?6-472-784-TALK ( or 986 in the [place] ?1-657-YUVSBFD ( ). ?Text 991407. This is the Crisis Text Line in the [place] ? . This is a hotline for Cook Islander speakers. ? . This is a hotline for TTY users. ?3-487-0-U-ELIZA ( ). This is a hotline for lesbian, schultz, bisexual, transgender, or questioning youth. ?For a list of hotlines in [place], visit suicide.org/hotlines/international/rqdymd-dyuuatd-cupklvbj.html Contact a crisis center or a local [...] to anyone or being with other people. ?Yaso-st-yevh conversation is best to help them understand [...] physical and a mental health checkup. Take nmya-pbn-oijluee and prescription medicines only as told by [...] information National Suicide Prevention Lifeline: www.suicidepreventionlifeline.org Hopeline: www.hopeline.Teez.mobi [place] Foundation for Suicide Prevention: www.afsp.org The Eliza Project (for lesbian, schultz, bisexual, transgender, or questioning youth): www.thetrevorproject.org National Trilla of Mental Health: www.nimh.nih.gov/health/topics/suicide-prevention Suicide Prevention Resources: afsp.org/hzuacxe-iwpkslrrog-qqwzolamg Contact a health care provider if: You [...] provider. Document Revised: 02/13/2022 Document Reviewed: 11/28/2021 [employer] Patient Education 2022 Androcial. Follow Up Care 03/14/2024 21:07:34 With:[facility] Address:Unknown When:03/16/2024 With:Fredi Ellington Address: [address] [place] [address]- Business (1) When:Within 3 Day(s) [facility] 08-13-2024 NoteED Patient Education Note Mental [...] (911 in the [place] ? Call the [facility] and human services helpline (211 in the [place] ? Call or text a suicide hotline to speak with a trained counselor. The following suicide hotlines are available in the [place]: ? 4-075-304-TALK ( or 080 in the [place] ? 0-140-FQAAHPR ( ). ? Text 476305. This is the Crisis Text Line in the [place]. ? . This is a hotline for [place] Islander speakers. ? . This is a hotline for TTY users. ? 5-709-7-U-ELIZA ( ). This is a hotline for lesbian, schultz, bisexual, transgender, or questioning youth. ? For a list of hotlines in [place], visit suicide.org/hotlines/international/lnlqee-ivzamzq-eczhtwxp.html ? Contact a crisis center or a [...] anyone or being with other people. ? Tcfj-no-rdog conversation is best to help them understand [...] and a mental health checkup. ? Take glem-wyf-hodofbj and prescription medicines only as told by [...] behaviors and wa (more content not included)... [facility]08-12-2024 Evaluation + Plan noteExtracted from: Title:ED [...] 10:15:00 AM Scheduled Provider:David MARCANO, Zenon Ratliff Location:[facility] Appointment Type:[facility] Follow Up [facility] 07-16-2024 Evaluation + Plan note Future Scheduled Tests Radiology* CT Abdomen w/ Contrast 02/16/24 [facility]06-21-2024 Evaluation + Plan note Future Scheduled Tests Radiology* CT Abdomen w/ Contrast 01/22/24 [facility] 06-12-2024 Hospital Discharge instructions Patient Education 01/13/2024 20:49:15 Acute Pancreatitis, Mqaj-wv-Nram Acute Pancreatitis Acute pancreatitis happens when there [...] Follow these instructions at home: Medicines Take hbdo-sfm-gejymtp and prescription medicines only as told by [...] provider. Document Revised: 06/10/2022 Document Reviewed: 06/10/2022 [employer] Patient Education 2022 Androcial. Follow Up Care 01/13/2024 18:23:07 With:Zenon Hernandez Address: [address] [place] [address], [address] [place] [phone] Business (1) When:01/16/2024 20:48:55 Comments:Call to schedule an appointment with the director of admissions for further management of care With:Fredi Ellington Address: [address] [place] [address] [place] [phone]- Business (1) When:Within 3 Day(s) [facility]06-11-2024 Hospital Discharge instructions Patient Education 01/12/2024 [...] Water. Coffee and tea (caffeinated or decaffeinated). Bowlegs. Liquid nutritional supplements. Soft drinks. Nondairy milks, such as almond, coconut, rice, or soy milk. Sweets and desserts Custard. Pudding. Flavored gelatin. Smooth ice cream (without nuts or candy pieces). Sherbet. Frozen ice pops. Senegalese ice. Pudding pops. Seasonings and condiments Salt and pepper. Spices. Vinegar. Ketchup. Yellow mustard. Smooth sauces, such as Hollandaise, cheese sauce, or white sauce. Soy sauce. Syrup. Honey. Jelly (without fruit pieces). Other foods Bowlegs powder. Cream soups. Strained soups. The items [...] provider. Document Revised: 05/07/2021 Document Reviewed: 05/07/2021 [employer] Patient Education 2022 [employer]cial. 01/12/2024 16:42:34 Nausea, Adult, Lkqo-jf-Qinh Nausea, Adult Nausea is feeling like you [...] fruit juice). ?Low-calorie sports drinks. Eat bland, ojmd-tr-jkjjtj foods in small amounts as you are able, such as: ?Bananas. ?Applesauce. ?Rice. ?Low-fat (lean) meats. ?[place]. ?Crackers. Avoid drinking fluids that have a lot of sugar or caffeine in them. This includes energy drinks, sports drinks, and soda. Avoid alcohol. Avoid spicy or fatty foods. General instructions Take xolr-nys-bstrewn and prescription medicines only as told by [...] cannot use soap and water, use hand supervisor grounds. Make sure that everyone in your home [...] drink what your doctor tells you. Take flju-dds-lskvxci and prescription medicines only as told by your doctor. Contact a doctor right away if your symptoms get worse or you have new symptoms. Keep all follow-up visits. This information is not intended to replace advice given to you by your health care provider. Make sure you discuss any questions you have with your health care provider. Document Revised: 01/24/2022 Document Reviewed: 01/24/2022 [employer] Patient Education 2022 [employer]cial. 01/12/2024 16:42:31 Abdominal Pain, Adult, Arty-zh-Vnzt Abdominal Pain, Adult Many things can cause belly (abdominal) pain. Most times, belly pain is not dangerous. Many cases of belly pain can be watched and treated at home. Sometimes, though, belly pain is serious. Your doctor will try to find the cause of your belly pain. Follow these instructions at home: Medicines Take hwve-fpx-vphjivq and prescription medicines only as told by [...] your belly pain for any changes. Take vzqo-egf-himesxe and prescription medicines only as told by [...] provider. Document Revised: 11/28/2019 Document Reviewed: 11/28/2019 [employer] Patient Education 2022 Androcial. Follow Up Care 01/12/2024 14:44:40 With:Fredi Ellington MD Address: [address] [place], [place] [phone] When:01/15/2024 [facility]11-28-2023 History of Present illness Narrative* Valorie [...] minimize her perioperative risk. documented in this [facility]10-23-2023 NoteAdmission and Discharge Information Admit Date/Time:05/11/2023 [...] 46.4 % Lymph Auto - 41.3 % [place] Auto - 8.8 % Eos Auto - 3.1 % Basophil Auto - 0.4 % Neutro Absolute - 2.6 E9/L Lymph Absolute - 2.3 E9/L [place] Absolute - 0.5 E9/L Eos Absolute - 0.2 E9/L Basophil Absolute - 0.0 E9/L Capillary Glucose POC (05/12/2023) Glucose Cap - 84 mg/dL POC Device SN - [id number] POC User ID - [id number] POC Username - CARI NERY CBC w/ Auto Diff (05/12/2023) WBC [...] Follow-up With When Contact Information Joann Zamorano [facility] [address] [place] [address]- Business (1) Additional Instructions: Call for hospital followup appointment 2-3 weeks Fredi Ellington [address] [facility] [place] [address] [place] [address]- Business (1) Additional Instructions: Call for followup appointment Patient Education Seizure, AdultPark[facility] HospitalComment on above:Result Comment: Electronically Signed By: Shazia NUNES\.br\Date and Time Signed: 05/24/23 18:49 EDT\.br\Electronically Co-Signed By: Akosua LR MD\.br\Date and Time Co-Signed: 05/25/2307:00 [id number] Hospital Discharge instructions Patient Education 05/13/2023 12:04:21 [...] Follow these instructions at home: Medicines Take hiqa-rvf-yxyosvm and prescription medicines only as told by [...] medicines are used to treat seizures. Take vxpo-uwj-ckamkuk and prescription medicines only astold by your health care provider. This information is not intended to replace advice given to you by your health care provider. Make sure you discuss any questions you have with your health care provider. Document Revised: 01/25/2021 Document Reviewed: 01/25/2021 [employer] Patient Education 2022 [employer]rocial. Follow Up Care 04/22/2023 12:48:03 With:Joann Zamorano Address: [address] [phone] Business (1) When: Unknown Comments:Call for hospital followup appointment 2-3 weeks With:Fredi Rakel Address: [address] [place] [phone] Business (1) When: Unknown Comments:Call for followup appointment [facility]10-11-2023 Evaluation + Plan noteExtracted from: Title:APSO [...] from: Title:APSO Note- Neurology Author:Rocky Landin LPN N Date:05/12/23 The patient is an 17-year-ol d [...] from: Title:Consult Note- Neurology Author:Constanza Landin LPN N Date:05/12/23 The patient is admitted for long-term [...] date 05/11/23 16:03:00 EDT, 05/11/23 16:03:00 EDT [facility] Prescription, lurasidone 60 mg [...] the hospitalization course and therapeutic plan. [facility]10-10-2023 NoteChief Complaint LTME Reason for Consultation [...] sensation in all 4 extremities Cerebellar exam: Tycbrg-iq-vmua reveals no ataxia. Gait is normal Assessment/Plan [...] 12/04/2021 Immunizations Vaccine Date Status SARS-CoV-2 (COVID-19) [id number] 10/03/2022 Recorded meningococcal group B vaccine 07/31/2022 [...] hepatitis A pediatric vaccine (more content not included)...[facility] on [facility]:Result Comment: Electronically Signed By: [...] sensation in all 4 extremities. Cerebellar exam: Xoyjaf-cq-ydaj reveals no ataxia. Gait is normal. Assessment/Plan [...] 12/04/2021 Immunizations Vaccine Date Status SARS-CoV-2 (COVID-19) mRNAMUL.ORD![id number] 10/03/2022 Recorded meningococcal group B vaccine 07/31/2022 [...] 05/28/2005 Recorded haemophilus b (more content not included)...[facility] HospitalComment on above:Result Comment: Electronically Signed By: Diann SHER, Riya\.br\Date and Time Signed: 05/11/23 09:39 EDT\.br\Electronically Co-Signed By: Melecio Rubio MD\.br\Date and Time Co-Signed: 05/12/23 08:36 [id number] NoteBasic Information Admit Date/Time:05/11/2023 07:29 Chief Complaint [...] date 05/11/23 16:03:00 EDT, 05/11/23 16:03:00 EDT [facility] Prescription, lurasidone 60 mg [...] agreement with POC. P (more content not included)...[facility] HospitalComment on above: Result Comment: Electronically Signed By: Alicia Sidhu\.br\Date and Time Signed: 05/11/23 20:00 EDT\.br\Electronically Co-Signed By: Akosua LR MD\.br\Date and Time Co-Signed: 05/12/23 06:56 [id number] Hospital Discharge instructions Patient Education 03/16/2023 17:50:47 [...] Follow these instructions at home: Medicines Take gacs-voe-fxtsdgs and prescription medicines only as told by [...] and water are not available, use hand supervisor grounds. ?Leave stitches (sutures), skin glue, or adhesive [...] provider. Document Revised: 10/24/2021 Document Reviewed: 10/24/2021 [employer] Patient Education 2022 [employer]cial. 03/16/2023 17:50:47 Head Injury, Adult Head Injury, [...] Ask your health care provider for a imkv-cn-lftx plan for gradually returning to activities. Ask [...] your friends, family, a trusted colleague, and network lead about your injury, symptoms, and restrictions. Have them watch for any new or worsening problems. General instructions Take gook-zps-svufyst and prescription medicines only as told by [...] provider. Document Revised: 06/01/2020 Document Reviewed: 06/01/2020 [employer] Patient Education 2022 [employer]rocial. Follow Up Care 03/16/2023 16:19:26 With:Fredi Ellington Address: [address] [place] [id number]- Business (1) When:03/19/2023 17:36:52 [facility]08-11-2023 Discharge summary Author John Monson [facility] March 13, 2023 9:40am Note Date/Time March 13, 2023 9: 40am [facility] [address] [place] [address] Discharge Summary Signed Patient: Rose Mary Schneider MR#: [id number] : 2005 Acct:[id number] Age/Sex: 17 / F Adm Date: 3 Loc: 1S Room: 3H7273-[address]: John Monson MD Copies to: [...] admission note),the patient was pink slipped from [employer] and acknowledged she attempted suicide by overdosing [...] denies working currently.? Previously worked at a [employer] until October of this year. Relationships: Reports [...] No Activity Restrictions Instructions: Depression, Adult (DC), [facility] DC Instructions Prescriptions: Continued levetiracetam [...] 14 Days Qty: 21 0RF Follow Up: [facility] [Outside] [facility] [Outside] (Sees Dr. Mackey.) Jonan Zamorano DO [Courtesy/Consulting Physician] - (Contact your neurologist with any needs related to history of seizures. ) Fredi Ellington MD [Primary Care Provider] - (Contact your primary care providerwith any medical needs. ) Documented By: John Monson MD 03/13/2338 Signed By: <Electronically signed by John Monson MD> 03/13/23939 [facility] Work Phone: 1(565) 624-523008-10-2023 Progress note Author John Monson [facility] March 12, 2023 1:37pm Note Date/Time March 12, 2023 1: 37pm [facility] [address] [place] [address] Psychiatry Progress Note Signed Patient: Rose Mary Schneider MR#: [id number] : 2005 Acct:[id number] Age/Sex: 17 / F Adm Date: 3 Loc: Room: [address] [place] [address] Type : ADM IN Attending Dr: John [...] therapy Documented By: John Monson MD 03/12/23 1157 Signed By: <Electronically signed by John Monson MD> 03/12/23 6467 [facility] Work Phone: 1(541) 678-920308-09-2023 History and physical note Author John Monson [facility] March 11, 2023 1:28pm Note Date/Time March 11, 2023 1:2 8pm [facility] [address] [place] [address] Psychiatry H&P Signed Patient: Rose Mary Schneider MR#: [id number] : 2005 Acct:[id number] Age/Sex: 17 / F Adm Date: 3 Loc: Room: 8J0561-1 Type: ADM IN Attending Dr: John Monson MD Copies to: MD Fredi Avila MD~ Date of Service: 03/11/2023 HPI History of Present Illness History of present illness: This is a 17-year-old female with reported history of depression and suicidal ideation who presents for inpatient admission due to worsening of suicidal thoughts. Reportedly (per admission note),the patient was pink slipped from [employer] and acknowledged she attempted suicide by overdosing [...] denies working currently. Previously worked at a [employer] until October of this year. Relationships: Reports [...] signed by John Monson MD> 03/11/23 1328 [facility] Work Phone: 1(361) 770-609708-08-2023 Hospital Discharge instructions Patient Education 03/10/2023 12:40:41 [...] services (911 in the [place] Call the [facility] health and human services helpline (211 in the [place] Call or text a suicide hotline to speak with a trained counselor. The following suicide hotlines are available in the [place]: ?3-617-056-TALK ( or 561 in the [place].S[place] ?5-436-NZHKAEZ ( ). ?Text 148574. This is the Crisis Text Line in the [place] ? . This is a hotline for Cook Islander speakers. ? . This is a hotline for TTY users. ?9-504-9-USOREN ( ). This is a hotline for lesbian, schultz, bisexual, transgender, or questioning youth. ?For a list of hotlines in [place], visit suicide.org/hotlines/international/ougdsd-jtonvju-ojhpuwuf.html Contact a crisis center or a local [...] to anyone or being with other people. ?Nktj-lh-qtkl conversation is best to help them understand [...] physical and a mental health checkup. Take lhco-uqm-lgthnhv and prescription medicines only as told by [...] National Suicide Prevention Lifeline: www.suicidepreventionlifeline.org Hopeline: www.hopeline.com [place] Foundation for Suicide Prevention: www.afsp.org The Eliza Project (for lesbian, schultz, bisexual, transgender, or questioning youth): www.thetrevorproject.org National Trilla of Mental Health: www.nimh.nih.gov/health/topics/suicide-prevention Suicide Prevention Resources: afsp.org/ihsxuyh-mfznadykhq-oiyetzpqu Contact a health care provider if: You [...] provider. Document Revised: 02/13/2022 Document Reviewed: 11/28/2021 [employer] Patient Education 2022 [employer]rocial. Follow Up Care 03/07/2023 14:09:50 With:Fredi Ellington Address: [address] [place] [address] [facility] (1) When: Unknown Comments:Call for followup appointment With:Joann Zamorano DO, [facility] Address: When:2 to 4 weeks [facility]08-08-2023 Evaluation + Plan noteExtracted from: Title:Discharge [...] extended release With When Contact Information Fredi Ellington [address] [facility] [place] [address] [place] [address]- Business (1) Additional Instructions: Call for followup [...] this morning are within normal limits [facility]Day Moderate 35 Minutes 90101 2. Hypokalemia, (E87.6: Hypokalemia)Hypokalemia Resolved Ordered: [facility] Care/Day Moderate 35 Minutes 84949 2. Suicidal ideation (R45.851: Suicidal ideations) No longer expressing suicidal ideation She was pink slipped yesterday; awaiting [facility]HP Ordered: [facility] Care/Day Moderate 35 Minutes 37498 3. Antihistamines overdose (T45.0X1A: Poisoning by antiallergic and antiemetic drugs, accidental (unintentional), initial encounter) Ordered: [facility] Hospital Care/Day Moderate 35 Minutes 28938 5. Depression (F32.A: Depression, unspecified) Continue fluoxetine Ordered: [facility] Hospital Care/Day Moderate 35 Minutes 24960 6. Seizure (R56.9: Unspecified convulsions) Continue Keppra, Lamictal and lurasidone Seizure precautions Ordered: [facility] Hospital Care/Day Moderate 35 Minutes 76212 7. Obesity (E66.9: Obesity, unspecified) Ordered: [facility] Hospital Care/Day Moderate 35 Minutes 62329 8. On deep vein thrombosis (DVT) prophylaxis (Z79.899: Other intermodal dispatcher (current) drug therapy) Early ambulation with SCDs Ordered: [facility] Hospital Care/Day Moderate 35 Minutes 33785 Orders: Transfer Patient to Transfer Patient to [...] (Z79.899: Other skilled nursing (current) drug therapy) Extracted from: Title:APSO Note [...] overdose with Tylenol/diphenhydramine. Secondary to suicide ideation/attempt. galley worker evaluation. Acetaminophen level ekta to 40 but trended down to undetectable. Treating with IVF Thursday. LFTs within normal limit. Repeat LFTs and PT/INR in AM. Ordered: Basic Metabolic Panel Comprehensive Metabolic Panel Consult to Form Coverer eGFR Extra Lav Tube Hepatic Function Panel PT [facility] Hospital Care/Day Moderate 35 Minutes 49267 2. Suicidal ideation (R45.851: Suicidal ideations) Supportive care. galley worker evaluation. Mental health evaluation in a.m. once medically stable. Ordered: Consult to Form Coverer [facility] Hospital Care/Day Moderate 35 Minutes 02825 3. Antihistamines overdose (T45.0X1A: Poisoning by antiallergic and antiemetic drugs, accidental (unintentional), initial encounter) Treated with charcoal. Respiratory status and circulation currently stable. Treated with IV fluid. Bladder scan so far not retaining urine. Ordered: [facility] Hospital Care/Day Moderate 35 Minutes 09358 4. Hypokalemia (E87.6: Hypokalemia) Secondary to gastrointestinal loss and IV fluid. We will replace orally. Ordered: potassium chloride, 40 mEq = 2 tab(s), Tab-ER, Oral, BID for 2 dose(s), Stop date 03/09/23 8:59:00 EDT, Routine, Start date 03/08/23 9:00:00 EDT, 03/08/23 8:36:00 EDT Comprehensive Metabolic Panel [facility] Hospital Care/Day Moderate 35 Minutes 24599 5. Depression (F32.A: Depression, unspecified) On fluoxetine. Ordered: [facility] Hospital Care/Day Moderate 35 Minutes 82066 6. Seizure (R56.9: Unspecified convulsions) No reported [...] made to ensure accuracy. However inadvertent computerized pulp piler errors may be present. Jennifer Retana. Hospitalist. [...] observation. Ordered: Basic Metabolic Panel Consult to Form Coverer Hepatic Function Panel Initial Hospital Care/Day High 75 Minutes 61932 2. Suicidal ideation (R45.851: Suicidal ideations) Supportive care. Social work evaluation. Mental health evaluation once medically stable. Ordered: Consult to Form Coverer Initial Hospital Care/Day High 75 Minutes 24668 3. Antihistamines overdose (T45.0X1A: Poisoning by antiallergic and antiemetic drugs, accidental (unintentional), initial encounter) Treated with charcoal. Currently sedated with secured and circulation stable. Monitor patient with end-tidal CO2 monitor. We will observe for delirium/agitation and may treat with physostigmine. Bladder scan every 6 hours to check for urinary retention. Ordered: Initial Hospital Care/Day High 75 Minutes 88126 4. Depression (F32.A: Depression, unspecified) On fluoxetine at home. Ordered: Initial Hospital Care/Day High 75 Minutes 89607 5. Seizure (R56.9: Unspecified convulsions) On Keppra and Lamictal. Ordered: lorazepam, 1 mg = 0.5 mL, Injection, IV Push, QID PRN Seizure, Routine, Start date 03/07/23 18:04:00 EDT, 03/07/23 18:04:00 EDT Initial Hospital Care/Day High 75 Minutes 75100 6. Obesity (E66.9: Obesity, unspecified) Recommend therapeutic lifestyle modification changes. 7. On deep vein thrombosis (DVT) prophylaxis (Z79.899: Other intermodal dispatcher (current) drug therapy) SCDs. Disposition: The patient [...] made to ensure accuracy. However inadvertent computerized pulp piler errors may be present. Jennifer Retana. Hospitalist. [...] Salicylate Level XR Chest Single View [facility]08-08-2023 NoteAdmission and Discharge Information Admit Date/Time:03/08/2023 17:43 Admitting Physician - Orlando Wade DO Consulting Physician - Melecio Rubio MD Admitting Diagnoses: 1. Poisoning by 4-Aminophenol derivatives, intentional self-harm, initial encounter, 03/09/2023 2. Hypokalemia, 03/09/2023 Discharge Order Date Discharge Patient - Ordered -- 03/10/23 12:22:00 EDT, [address] Discharge Diagnoses 1. Intentional acetaminophen overdose, [...] normal. We did pink slip her for P to evaluate her. She is excepted to 1 S. Procedures and Treatment Provided Neurology consultation Services Consulted Consult to Neurology - Ordered -- 03/08/23 13:54:00 EDT, AMS in the setting of OD, Consult and Co-manage Form Coverer Consult - Completed -- 03/07/23 17:58:00 EDT, [...] 60.3 % Lymph Auto - 28.7 % [place] Auto - 8.6 % Eos Auto - 1.9 % Basophil Auto - 0.5 % Neutro Absolute - 4.1 E9/L Lymph Absolute - 2.0 E9/L [place]ster Absolute - 0.6 E9/L Eos Absolute - [...] - 7.2 gm/dL A (more content not included)...[facility] on above: Result Comment: Electronically Signed By: Abdirizak DO, Lawrence M.\.br\Date and Time Signed: 03/10/23 12:27 [id number] NoteCRM entered the room to discuss dc planning. PCP, DME and insurance discussed. Patient is alert andinvolved in plan of care. Contact information provided and whiteboard updated. CRM spoke to pt and mother about pink slip. Pt is agreeable to inpt psych stay. Pending MHP eval and bed. [place] slip willexp at 2pm. SW is following up. Ant dc 03/10. CRM to follow. MHP will facilitate transport.[facility] HospitalComment on above:Result Comment: Electronically Signed By: Peyton Mccarty\.br\Date and Time Signed: 03/10/23 12:11 [id number] NoteChief Complaint I over dose of tylenol [...] Home FLUoxetine 40 mg Cap Junel Fe /20 oral tablet Keppra, BID lurasidone 60 mg oral tablet melatonin-pyridoxine 3 mg-10 mg oral tablet, extended release Allergies No Known Allergies Social History Alcohol Substance Abuse Tobacco Current vaping or e-cigarette use Smokeless Tobacco Use:., 12/19/2022 Never (less than 100 in lifetime) Tobacco Use:., 12/04/2021 Immunizations Vaccine Date Status SARS-CoV-2 (COVID-19) mRNAMUL.ORD![id number] 10/03/2022 Recorded (more content not included)...[facility] HospitalComment on above:Result Comment: Electronically Signed By: Irene Harding RN\.br\Date and Time Signed: 03/09/23 11:35 EDT\.br\Electronically Co-Signed By: Daniel Reaves DO\.br\Date and Time Co-Signed: 03/09/23 11:52 [id number] Note13:50: Nursing requested patient evaluation at bedside, [...] po bid. EEG ordered, will be completed tomorrowFisher [facility] Cross HospitalComment on above: Result Comment: Electronically Signed By: ADELINE MARCANO, Akosua\.br\Date and Time Signed: 03/08/23 16:06 [id number] NoteChief Complaint patient c/o dizziness, lethargy and [...] 100 pills that are in the bottle. [place] very dizzy and sleepy was also having [...] 14:43:00) Lymph Auto: 28.7 % (03/07/23 14:43:00) Winchester Auto: 8.6 % (03/07/23 14:43:00) Eos Auto: 1.9 % (03/07/23 14:43:00) Basophil Auto: 0.5 % (03/07/23 14:43:00) Neutro Absolute: 4.1 E9/L (03/07/23 14:43:00) Lymph Absolute: 2 E9/L (03/07/23 14:43:00) [place]ster Absolute: 0.6 E9/L (03/07/23 14:43:00) Eos Absolute: [...] (03/07/23 14:43:00) Bili I (more content not included)...[facility] HospitalComment on above:Result Comment: Electronically Signed By: DEBBIE MARCANO, Tejasanefo\.br\Date and Time Signed: 03/07/23 18:12 [id number] Hospital Discharge instructions Patient Education 11/13/2022 18:45:15 [...] services (911 in the [place].). The [facility] and human services helpline (211 in the [place] Go to your nearest emergency department. Call a suicide hotline to speak with a trained counselor. The following suicide hotlines are available in the [place]: ?0-618-233-TALK ( ). ?4-432-IPMMMRR ( ). ? . This is a hotline for [place] Islander speakers. ? . This is a hotline for TTY users. ?7-921-5-U-ELIZA ( ). This is a hotline for lesbian, schultz, bisexual, transgender, or questioning youth. ?For a list of hotlines in [place], visit www.suicide.org/hotlines/international/oyadmx-clopkjs-gwirpmci.html Contact a crisis center or a local [...] list of crisis centers in [place], visit: suicideprevention.id How to help yourself feel better Promise [...] day, even if you do notfeel sociable. Vrty-zy-eums conversation is best to help them understand [...] day can help you feel better. Take yyqa-nqq-rivznzx and prescription medicines only as told by [...] National Suicide Prevention Lifeline: www.suicidepreventionlifeline.org Hopeline: www.hopeline.com [place] Foundation for Suicide Prevention: www.afsp.org The Eliza [...] away. Call emergency services, go to your [facility] er department or crisis center, or call a [...] 2004 Document Revised: 11/10/2019 Document Reviewed: 03/02/2018 [employer] Patient Education 2020 [employer] Follow Up Care 11/13/2022 13:37:26 With:[facility] Address:Unknown When:11/16/2022 18:44:48 Comments:Return should you have worsening symptoms or feel unsafe. Call 911 or mental health counseling at any time. With:Fredi Ellington Address: [address] [place] [phone]- Business (1) When:11/16/2022 18:44:44 Comments:Call the office [...] develop any new or worsening symptoms. [facility]04-13-2023 Evaluation + Plan noteExtracted from: Title:ED Note Author:Wilfredo Villareal DO Date: Suicidal ideation (R45.851: Suicidal ideations) Orders: Acetaminophen Level Automated Diff Beta hCG Qual CBC w/ Auto Diff Communication Order Comprehensive Metabolic Panel Consult to Mental Health Drug Screen Urine ECG Pediatric Ethanol Level Extra Blue Tube Salicylate Level UA With Cult Reflex [facility]03-11-2023 Hospital Discharge instructions Patient Education 10/11/2022 [...] what your health care provider or the dental cream maker recommends for you. What are the signs [...] Follow these instructions at home: Medicines Take htoz-dwi-iqrywnh and prescription medicines only as told by your health care provider. Avoid any medicines that contain acetaminophen for as long as told by your health care provider. Todo this: ?Check all medicine labels for the presence of acetaminophen. Acetaminophen is found in many exgs-cnz-upxximg and prescription medicines. These include medicines for [...] the hospital. Call: Your local emergency services (911 in the [place] Your local poison control [...] 05/04/2015 Document Revised: 02/18/2019 Document Reviewed: 02/18/2019 [employer] Patient Education 2020 [employer]. Follow Up Care 10/10/2022 21:52:59 With:[facility] Address:Unknown When:10/14/2022 Comments:Please follow-up with your primary care doctor in addition to your counselor in the next 1 to 2 days. Return to the ED for any new or worsening symptoms. With:Fredi Ellington Address: [address] [place], [place] [id number] Business (1) When:10/14/2022 [facility]03-10-2023 Evaluation + Plan noteExtracted from: Title:ED [...] PT & PTT Rapid COVID Antigen ([facility]) Salicylate Level U Beta Hcg Qual [facility]03-06-2023 Evaluation + Plan noteExtracted from: Title:ED Note Author:Miky Han GONZALEZLaurita Date :10/06/22 Syncope (R55: Syncope and co llapse) Orders: Automated Diff Basic Metabolic Panel Capillary Glucose POC CBC w/ Auto Diff ECG Pediatric ED Cardiac Monitoring Oxygen Saturation Oxygen Therapy PT & PTT Saline Lock Insert Troponin 0 Hr. U Beta Hcg Qual UA With Cult Reflex XR Chest Single View [facility]03-06-2023 Hospital Discharge instructions Patient Education 10/06/2022 [...] your urine pale yellow. General instructions Take xkyd-ufa-qsbgvez and prescription medicines only as told by [...] 07/20/2006 Document Revised: 07/02/2018 Document Reviewed: 06/28/2018 [employer] Patient Education 2019 [employer]cial. Follow Up Care 10/05/2022 23:50:01 With:Fredi Ellington Address: [address] [place] [id number]- Business (1) When:Within 3 Day(s) [facility]12-07-2022 Hospital Discharge instructions Patient Education 07/08/2022 [...] until he or she recovers. Medicines Give lyyh-njg-jayruja and prescription medicines only as told by [...] check with your local DMV (department of [employer] vehicles) to find out about local driving [...] 10/07/2019 Document Reviewed: 10/07/2019 Elsevier Patient Education 2020 Androcial. Follow Up Care 07/08/2022 18:51:22 With:Fredi Ellington Address: [address] [place] [phone]- Business (1) When:07/11/2022 [facility]12-06-2022 Evaluation + Plan note Diagnostic Tests Pending * Rapid COVID Antigen ([facility]) 07/08/22 * Influenza A&B Ag 07/08/22 * Group A Strep by PCR 07/08/22 [facility]12-02-2022 Hospital Discharge instructions Patient Education 07/04/2022 [...] and regular daily exercise. Give your child nrmb-ewj-bdcxocc and prescription medicines only as told by [...] to find more information Epilepsy Foundation: www.epilepsy.com [place] Epilepsy Society: www.aesnet.org Contact a health care [...] 10/29/2017 Document Revised: 11/10/2019 Document Reviewed: 10/29/2017 [employer] Patient Education 2019 [employer] 07/04/2022 19:27:04 Non-Epileptic Seizures, Pediatric Non-Epileptic [...] she has a seizure. Give your child poms-nun-qufgolc and prescription medicines only as told by [...] 10/26/2017 Document Revised: 07/02/2018 Document Reviewed: 10/26/2017 [employer] Patient Education 2020 [employer]. Follow Up Care 07/04/2022 18:04:21 With:Joann Zamorano Address: [facility] [address] [phone]- Business (1) When:07/07/2022 19:23:00 With:Fredi Ellington Address: [address] [place] [address]- Business (1) When:07/07/2022 19:22:49 Comments:Follow-up with your primary care provider in 3 to 5 days. If symptoms worsen, do not improve, or new symptoms arise please report back to emergency department for further evaluation. [facility]11-30-2022 Hospital Discharge instructions Patient Education 07/02/2022 [...] she has a seizure. Give your child jcut-pae-gajbord and prescription medicines only as told by [...] 10/26/2017 Document Revised: 07/02/2018 Document Reviewed: 10/26/2017 [employer] Patient Education 2020 [employer]. 07/02/2022 16:03:45 Helping Your Child Manage Non-Epileptic [...] and regular daily exercise. Give your child pgvk-rbb-ihcfoev and prescription medicines only as told by [...] to find more information Epilepsy Foundation: www.epilepsy.com [place] Epilepsy Society: www.aesnet.org Contact a health care [...] 10/29/2017 Document Revised: 11/10/2019 Document Reviewed: 10/29/2017 [employer] Patient Education 2020 [employer]. Follow Up Care 07/02/2022 13:18:31 With:Joann Zamorano Address:Unknown When:07/05/2022 15:30:57 Comments:Follow-up with Dr. Zamorano for further evaluation of your seizure-like activity. With:Fredi Ellington Address: [address] [place] [phone]- Business (1) When:07/05/2022 15:30:49 Comments:Follow-up with your primary care provider in 3 to 5 days. If symptoms worsen, do not improve, or new symptoms arise please report back to emergency department for further evaluation. [facility] [facility] Evaluation + Plan noteExtracted from: Title:ED Note Author:Alexandru Barajas PA-C te:07/02/22 Seizure-like activity (R56.9 : Unspecified convulsions) Orders: Automated Diff Basic Metabolic Panel CBC w/ Auto Diff [facility] No data available for this section [facility] Future Appointments Appointment Date:02/16/2024 10:30:00 AM Scheduled Provider: Location:.[facility] Appointment Type:US Abdominal/Pelvis () Future Scheduled Tests Radiology* US Gallbladder 02/16/24 * CT Abdomen w/ Contrast 02/16/24 [facility] General Surgery [place] Evaluation + Plan note Future Appointments Appointment Date:04/07/2024 10:00:00 AM Scheduled Provider:Zenon Hernandez MD [place] Appointment Type:[facility] Follow Up [facility] Evaluation + Plan note Future Appointments Appointment Date:04/25/2024 01:15:00 PM Scheduled Provider:Zenon Hernandez MD Location[place] Appointment Type:[facility] Follow Up [facility] evaluation noteNo assessment information available [facility] Work Phone: evaluation note* Diagnosis Onset Date Resolution Status Depression acute Suicidal ideations acute [facility] Work Phone: evaluation note* Diagnosis Macromastia- Primary Hypertrophy of breast Thoracic spine pain Pain in thoracic spine documented in this encounter [facility] System[facility]* Diagnosis Psychogenic nonepileptic seizure (CMS/HCC)- Primary Mood disorder (CMS/HCC) Unspecified episodic mood disorder Altered mental status, unspecified altered mental status type documented in this encounter [facility] HealthcareEvaluation note* Diagnosis Missed menses , unspecified [...] in this encounter [facility]* Diagnosis 37 weeks gestation of (HHS-HCC) Third trimester (HHS-HCC) state, incidental Stomach pain Dyspepsia and other specified disorders of function of stomach documented in this encounter [facility]* Diagnosis 38 weeks gestation of (HHS-HCC) Third trimester ([facility]-HCC) state, incidental Elevated BP without diagnosis of hypertension documented in this encounter [facility] Discharge instructions No data available for this section [facility] Additional Instructions Regular Diet No [facility] Work Phone: Progress note No data available for this section [facility] Summary Purpose Family History No Family [...] section and content) DATE CREATED AUTHOR 09/20/2018 [facility] DATE CREATED AUTHOR AUTHOR'S ORGANIZ ATION 10/27/2019 [employer] DATE CREATED AUTHOR AUTHOR'S ORGANIZ ATION 11/08/2022 [facility] DATE CREATED AUTHOR AUTHOR'S ORGANIZ ATION 03/11/2023 [facility] DATE CREATED AUTHOR AUTHOR'S ORGANIZ ATION 07/02/2023 [facility] DATE CREATED AUTHOR AUTHOR'S ORGANIZ ATION 01/13/2024 [facility] ical Center DATE CREATED AUTHOR AUTHOR'S ORGANIZ ATION 01/15/2024 [facility] ical Center DATE CREATED AUTHOR AUTHOR'S ORGANIZ ATION 01/16/2024 [facility] ical Center DATE CREATED AUTHOR AUTHOR'S ORGANIZ ATION 02/24/2024 [facility] DATE CREATED AUTHOR AUTHOR'S ORGANIZ ATION 03/05/2024 [facility] ical Center DATE CREATED AUTHOR AUTHOR'S ORGANIZ ATION 03/09/2024 [facility] DATE CREATED AUTHOR AUTHOR'S ORGANIZ ATION 03/16/2024 [facility] DATE CREATED AUTHOR AUTHOR'S ORGANIZ ATION 03/30/2024 [facility] DATE CREATED AUTHOR AUTHOR'S ORGANIZ ATION 04/11/2024 [facility] DATE CREATED AUTHOR AUTHOR'S ORGANIZ ATION 04/17/2024 [facility] DATE CREATED AUTHOR AUTHOR'S ORGANIZ ATION 04/27/2024 [facility] DATE CREATED AUTHOR AUTHOR'S ORGANIZ ATION 05/24/2024 [facility] DATE CREATED AUTHOR AUTHOR'S ORGANIZ ATION 06/28/2024 [facility] DATE CREATED AUTHOR AUTHOR'S ORGANIZ ATION 08/23/2024 [facility] DATE CREATED AUTHOR AUTHOR'S ORGANIZ ATION 11/10/2024 [facility] DATE CREATED AUTHOR AUTHOR'S ORGANIZ ATION 11/13/2024 [facility] DATE CREATED AUTHOR AUTHOR'S ORGANIZ ATION 01/31/2025 [facility] DATE CREATED AUTHOR AUTHOR'S ORGANIZ ATION 03/22/2025 [facility] Care Team (unrecognized sect ion and [...] Provider, Attending Pr omer Active Team Status: Inactive Member Role Status Dates Fredi Ellington MD Primary Care Provider Active John Monson MD Admit Provider, Attending Provider Active 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 Relationship Specialty Start Date End Date Fredi Ellington MD [address] [facility] [place] [address] PCP - General Family Medicine 06/10/23 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 Relationship Specialty Start Date End Date Fredi Ellington MD [address] [place] [facility] [address] PCP - General Family Medicine 02/08/24 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 Relationship Specialty Start Date End Date Fredi Ellington MD [address] [place] [facility] [address] PCP - General Family Medicine 02/08/24 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 Relationship Specialty Start Date End Date Fredi Ellington MD [address] [place] [facility] [address] PCP - General Family Medicine 02/08/24 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 Relationship Specialty Start Date End Date Fredi Ellington MD [address] [place] [facility] [address] PCP - General Family Medicine 02/08/24 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 Relationship Specialty Start Date End Date Fredi Ellington MD [address] [place] [facility] [address] PCP - General Family Medicine 02/08/24 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 Relationship Specialty Start Date End Date Fredi Ellington MD [address] [place] [facility] [address] PCP - General Family Medicine 02/08/24 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 Relationship Specialty Start Date End Date Fredi Ellington MD [address] [place] [facility] [address] PCP - General Family Medicine 02/08/24 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 Relationship Specialty Start Date End Date Fredi Ellington MD [address] [place] [facility] [address] PCP - General Family Medicine 02/08/24 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 Relationship Specialty Start Date End Date Fredi Ellington MD [address] [place] [facility] [address] PCP - General Family Medicine 02/08/24 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 Relationship Specialty Start Date End Date Fredi Ellington MD [address] [place] [facility] [address] PCP - General Family Medicine 02/08/24 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 Relationship Specialty Start Date End Date Fredi Ellington MD [address] [place] [facility] [address] PCP - General Family Medicine 02/08/24 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 Relationship Specialty Start Date End Date Fredi Ellington MD [address] [place] [facility] [address] PCP - General Family Medicine 02/08/24 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 Relationship Specialty Start Date End Date Fredi Ellington MD [address] [place] [facility] [address] PCP - General Family Medicine 02/08/24 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 Relationship Specialty Start Date End Date Fredi Ellington MD [address] [place] [facility] [address] PCP - General Family Medicine 02/08/24 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 Relationship Specialty Start Date End Date Fredi Ellington MD [address] [place] [address] PCP - General Family Medicine 02/08/24 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 Relationship Specialty Start Date End Date Fredi Ellington MD [address] [place] [address] PCP - General Family Medicine 02/08/24 Goals [...] - LYNNETTE Fredi Ellington MD [address] [place] [address] Valorie Hansen MD [address] [address] Referral ID Status Reason Start Date Expiration Date V isits Requested Visits Authorized [id number] Pending Review 06/30/2023 07/24/2024 1 1 Reason [...] BE BASED ON THE PRIMARY CLINICAL RECORDS. [employer] provides no warranty or guarantee of the accuracy or completeness of information in this document.
[2025-03-23 05:38] LABS: Hematocrit 30.2 % (36.0-48.0); Hemoglobin 10.1 g/dL (12.0-16.0); Mean Corpuscular HGB Conc 33.4 g/dL (29.9-35.2); Mean Corpuscular Hemoglobin 27.4 pg (26.7-34.0); Mean Corpuscular Volume 81.8 fL (81.0-99.0); Platelet Count 374 10^3/uL (150-450); Red Blood Count 3.69 10^6/uL (4.20-5.40); White Blood Count 7.5 10^3/uL (4.0-11.0)
[2025-03-23 05:51] LABS: Cannabinoid Screen Urine NEGATIVE (NEGATIVE); Methamphetamines Screen Urine NEGATIVE (NEGATIVE); Tricyclic Antidepressant Urine NEGATIVE (NEGATIVE)
[2025-03-23] MEDS: 0.9 % SODIUM CHLORIDE 1,000 ML 125 ML IV ×3 (05:57→23:21)
[2025-03-23] MEDS: OXYTOCIN/0.9 % SODIUM CHLORIDE 10 UNITS/500 ML PLAST..BAG 6 UNIT IV (05:59)
[2025-03-23] MEDS: 0.9 % SODIUM CHLORIDE 1,000 ML 1000 ML IV (11:40)
[2025-03-23] MEDS: ROPIVACAINE HCL/PF 400 MG/200 ML PREMIX 10 MG EPIDURAL ×2 (12:04→22:53)
[2025-03-23] MEDS: OXYTOCIN/0.9 % SODIUM CHLORIDE 10 UNITS/500 ML PLAST..BAG 60 UNIT IV (17:56)
[2025-03-23] MEDS: ACETAMINOPHEN 500 MG TABLET 1000 MG PO (22:41)
[2025-03-24] VITALS (17 sets, daily range): BP systolic 112–147; BP diastolic 62–87; PULSE 78–151; TEMP 35.8–37.3
[2025-03-24] MEDS: FAMOTIDINE/PF 20 MG/2 ML VIAL IV (01:31)
[2025-03-24] MEDS: CEFAZOLIN SODIUM/DEXTROSE,ISO 2 GM/50 ML PIGGYBACK IV (01:38)
[2025-03-24] MEDS: LIDOCAINE HCL 1% 200 MG/20 ML MDV INJ (02:00)
[2025-03-24] MEDS: OXYTOCIN/0.9 % SODIUM CHLORIDE 20 UNITS/1,000 ML PLAST..BAG 125 UNIT IV (02:06)
--- NOTE | 2025-03-24 02:22 | PM.OBPRCVD ---
Procedure Procedure: Procedures Operation Date: 03/24/25 02:00 <No data on this case meets the specified criteria> Intrapartal events: None Induction method: per pitocin protocol Delivery augmentation: rupture of membranes and pitocin Delivery monitor: external FHT and external uterine Route of delivery: Episiotomy Description: midline L&D Laceration Description: perineal - 2nd degree Delivery repair: Vicryl Estimated blood loss (mL): 350 Anesthesia type: Epidural Disposition: floor Infant Delivery date: 03/24/25 Gender: female presentation: vertex Placental delivery description: Spontaneous cord description: 3 Vessels
[2025-03-24] MEDS: IBUPROFEN 600 MG TABLET PO ×2 (03:13→16:51)
[2025-03-24] MEDS: GLYCERIN/WITCH HAZEL PADS 1 PAD TOPICAL (05:20)
[2025-03-24] MEDS: BENZOCAINE/MENTHOL 85 GRAM SPRAY BOTTLE 1 APPLIC TOPICAL (05:20)
[2025-03-24] MEDS: LATUDA 20 MG 20 EACH PO (10:00)
--- NOTE | 2025-03-24 10:49 | PC.NURSE ---
0108: Dr. Zamudio at bedside per RN request d/t patient being inconsolable, unable to stay still. Rn unable to get proper cervical exam. Dr. Zamudio does exam. States that cervical exam is unchanged and discusses plan of a with the patient. Patient screaming and crying Get this baby out of me! I want to be done! 0109: Dr. Zamudio states to call for a . 0115: Patient rolling around bed and inconsolable. Rn at bedside prepping patient for procedure. Dr. Zamudio in to receive consent from patient. 0140: RN removes FSE. Patient transported back to OR by OR team. 0142: Dr. Zamudio checks patient in OR before transferring patient to operating table, d/t patient grunting and attempting to push. 0145: Dr. Zamudio states that patient is complete and requests for the delivery table to be brought to the OR. 0150: Dr. Zamudio orders to transport patient back to personal room d/t being unable to monitor heart tones in the OR. 0155: Patient returns to room. RN applies US to patient. FHTs tracing in the 130s. Dr. Zamudio and nurses at bedside for delivery. 0159: Dr. Zamudio injects lidocaine and cuts a midline episiotomy. 0200: infant delivered.
[2025-03-25 00:09] VITALS: TEMP 35.4
[2025-03-25 00:10] VITALS: BP 130/80; PULSE 82; TEMP 36.7
[2025-03-25] MEDS: IBUPROFEN 600 MG TABLET PO (00:15)
[2025-03-25] MEDS: PANTOPRAZOLE SODIUM 40 MG TABLET.DR PO (06:13)
[2025-03-25] MEDS: LATUDA 20 MG 20 EACH PO (07:30)
[2025-03-25 07:58] LABS: Hematocrit 28.6 % (36.0-48.0); Hemoglobin 9.1 g/dL (12.0-16.0); Immature Granulocytes Abs Auto 0.01 10^3/uL (0.00-0.03); Immature Granulocytes Pct Auto 0.1 % (0.0-0.5); Lymphocytes Absolute Auto 3.1 10^3/uL (1.2-3.8); Mean Corpuscular HGB Conc 31.8 g/dL (29.9-35.2); Mean Corpuscular Hemoglobin 26.6 pg (26.7-34.0); Mean Corpuscular Volume 83.6 fL (81.0-99.0); Platelet Count 332 10^3/uL (150-450); Red Blood Count 3.42 10^6/uL (4.20-5.40); White Blood Count 8.7 10^3/uL (4.0-11.0)
[2025-03-25 08:31] VITALS: BP 119/70; PULSE 88; TEMP 36.9
[2025-03-25] MEDS: DOCUSATE SODIUM 100 MG CAPSULE PO ×2 (08:44→20:34)
--- NOTE | 2025-03-25 10:28 | PM.OBPN ---
OB - PN: Subj Subjective Patient comments: no complaints [place] status: doing well feeding status: breast and bottle feeding Exam Constitutional Vital Signs, click to edit/add: Last Vital Signs Temp 98.5 F 03/25/25 08:31 Pulse 88 03/25/25 08:31 Resp 16 03/25/25 00:10 BP 119/70 03/25/25 08:31 O2 Del Method Room Air 03/25/25 08:41 Documenting provider has reviewed patient's vital signs: yes Common normals: no apparent distress General appearance: cooperative and comfortable Orientation/consciousness: Yes awake, Yes oriented to person, Yes oriented to place and Yes oriented to time HENMT Common normals: normocephalic Eye Common normals: EOMs intact bilaterally General eye: normal appearance of both eyes Neck & C-Spine Common normals: full ROM Lymph Lymphatic: no lymphadenopathy noted Respiratory Common normals: normal respiratory effort Effort & inspection: able to speak in complete sentences Auscultation: clear to auscultation bilaterally Cardio Common normals: regular rate and regular rhythm Rate: regular rate Rhythm: regular rhythm GI Inspection: normal to inspection Palpation: soft Common normals: no CVA tenderness Back & Pelvis Common normals: no CVA tenderness Extremity Common normals: normal to inspection Neuro Common normals: oriented x3 Sensorium/orientation: awake, alert, oriented to person, oriented to place and oriented to time Psych Common normals: mental status grossly normal, thought process normal, cooperative, affect normal, speech normal, activity/motor behavior normal, denies hallucinations, denies homicidal ideation and denies suicidal ideation Appearance: grossly normal Attitude: calm Results Labs Labs: Short CBC 03/25/25 Range/Units 07:33 WBC 8.7 (4.0-11.0) 10^3/uL Hgb 9.1 L (12.0-16.0) g/dL Hct 28.6 L (36.0-48.0) % Plt Count 332 (150-450) 10^3/uL OB - PN: A/P Plan - Vaginal Delivery day: 1 Plan: routine care Time Spent with Patient Time: Total time spent is greater than 50% in coordination of care (as documented) at patient's floor/unit and/or counseling patient: Total time spent with greater than 50% in coordination of care (as documented) at patient's floor/unit and/or counseling patient: less than 15 minutes
[2025-03-25 17:58] VITALS: BP 122/74; PULSE 84; TEMP 35.8; TEMP 36.8
[2025-03-25 17:59] VITALS: BP 122/74; PULSE 84
--- NOTE | 2025-03-25 19:01 | PC.NURSE ---
pt able to hold a pleasant conversation with nurse, willing to learn. However, pt and S.O. needs re educated about teaching multiple times of self and infant. pt has watched videos, went through handouts, spoke with nurse and still needs re education with things like feeding and burping often, how to swaddled infant. Care of self and . pt will chew on lip, have nervous twitching and rocking back and forth in bed through out the day when she is anxious or overwhelmed. pt state she was on a bunch of psych meds but stopped them cold turkey and said her Dr doesn't know because she was worried about the baby. Pt states she does take the Latuda though. pt states she still does counseling and is scheduled with a psychiatrist april [address] [place] in [place]. pts s.o. states he had his one year old taken away d/t his anger disorder and depression issues, he has since been hospitalized and medicated. pt states her s.o is considering going back into counseling as to not have break and injury her or the baby. pt and S.O. live with pts mother in a 2 bedroom apartment.pt and S.O. do not drive and are not licensed, pt and S.O. are looking to get their own apartment. Social Service was placed, social security benefits interviewer has not seen pt at this time. pt states she does receive government assistance, and has good support from her mother and grandmother.
[2025-03-26 00:08] VITALS: BP 119/58; PULSE 83; TEMP 36.7
[2025-03-26] MEDS: PANTOPRAZOLE SODIUM 40 MG TABLET.DR PO (06:29)
--- NOTE | 2025-03-26 07:30 | PC.NURSE ---
Educated patient throughout the night about infant cues, feeding routines and sleep patterns. Patient requires extra education throughout the night with reminders often on feeding. Patient receptive to education and desires to learn.
--- NOTE | 2025-03-26 08:07 | PM.OBPN ---
OB - PN: Subj Subjective Patient comments: no complaints [place] status: doing well feeding status: exclusively bottle feeding Exam Constitutional Vital Signs, click to edit/add: Last Vital Signs Temp 98.1 F 03/26/25 00:08 Pulse 83 03/26/25 00:08 Resp 18 03/26/25 00:05 BP 119/58 03/26/25 00:08 O2 Del Method Room Air 03/26/25 00:05 Documenting provider has reviewed patient's vital signs: yes Common normals: no apparent distress Orientation/consciousness: Yes awake, Yes oriented to person, Yes oriented to place and Yes oriented to time HENMT Common normals: normocephalic Eye Common normals: EOMs intact bilaterally Neck & C-Spine Common normals: full ROM General: normal visual inspection Lymph Lymphatic: no lymphadenopathy noted Chest Common normals: inspection of chest normal Respiratory Common normals: normal respiratory effort, no retractions, no use of accessory muscles and clear to auscultation bilaterally Effort & inspection: able to speak in complete sentences Cardio Common normals: regular rate and regular rhythm Rate: regular rate Rhythm: regular rhythm GI Common normals: Normal to inspection, nondistended, normoactive bowel sounds present Inspection: normal to inspection Auscultation: normoactive bowel sounds Palpation: soft Common normals: no CVA tenderness Back & Pelvis Common normals: no CVA tenderness Extremity Common normals: normal to inspection and full ROM Neuro Common normals: oriented x3 Sensorium/orientation: awake, alert, oriented to person, oriented to place and oriented to time Psych Common normals: mental status grossly normal, thought process normal, cooperative, affect normal, speech normal, activity/motor behavior normal, denies hallucinations, denies homicidal ideation and denies suicidal ideation Attitude: calm OB - PN: A/P Plan - Vaginal Delivery day: 2 Plan: discharge home Time Spent with Patient Time: Total time spent is greater than 50% in coordination of care (as documented) at patient's floor/unit and/or counseling patient: Total time spent with greater than 50% in coordination of care (as documented) at patient's floor/unit and/or counseling patient: less than 15 minutes
--- NOTE | 2025-03-26 08:46 | PC.NURSE ---
nurse spoke with yann Dewitt social science analyst today. Yann aware of concerns of pt not taking medications as prescribed for her mental health per pt statement, pt does follow up with psychiatry on Apr 19, 2025 and sees counseling tomorrow. pt willing to learn and care for however pt being told same information 3-4 times in multiple ways by 2 nurses verbalizing understanding and then not following through and telling nurse nobody told her. Notified concerns of pt and S.O. have no means of travel as neither have a license and live with pts mother who can not drive at this time. pts S.O. also has significant mental health hx and is on medication however, does not have rights or custody of one year old per his own statement. Also per his own statement he does not see counseling. pt would like s.o. to get into counseling so he doesn't throw hands at her and baby . pt does not have follow up creel operator scheduled for and nurse assisted with helping them with creel operator choices. pt staying longer with infant to make sure she has proper resources and education to care for self and . Yann notifying CPS in [facility] myla David from case management.
[2025-03-26 09:14] VITALS: BP 124/74; PULSE 65; TEMP 35.8; TEMP 35.9
[2025-03-26] MEDS: DOCUSATE SODIUM 100 MG CAPSULE PO ×2 (09:19→21:04)
[2025-03-26] MEDS: IBUPROFEN 600 MG TABLET PO ×2 (09:34→21:04)
--- NOTE | 2025-03-26 12:13 | PC.NURSE ---
Sherry social and political studies professor called in spoke with RN, [facility] service social and political studies professor on way to speak with pt at this time. Sherry currently speaking with pt on phone and educating pt on [facility] coming to speak with pt and spouse. Sherry also notified that pt states that her mom can't drive because she got a MARYLU d/t taking a muscle relaxer and driving. pts S.O. states he can't drive as he has to pay for outstanding warrants from when he was in alf from his brother which have been expunged from his record since.
--- NOTE | 2025-03-26 13:36 | PC.NURSE ---
Joann from [facility] CPS speaks with ptAlem pts mother, pts grandmother and explains concerns, safety plan, answers questions. All family memebers verbalize understanding of safety plan and sign consent. appointment made for on03/28/25 at 0930 for peds on wheels at the house. [facility] CPS performing home visit tomorrow after discharge at 1600.
[2025-03-26] MEDS: LATUDA 20 MG 20 EACH PO (13:46)
[2025-03-26 16:33] VITALS: BP 110/59; PULSE 86; TEMP 37.1
[2025-03-26 21:00] VITALS: PULSE 100; TEMP 36.6
[2025-03-26 21:07] VITALS: BP 127/79; PULSE 100
[2025-03-27] MEDS: IBUPROFEN 600 MG TABLET PO (03:19)
[2025-03-27] MEDS: PANTOPRAZOLE SODIUM 40 MG TABLET.DR PO (06:38)
--- NOTE | 2025-03-27 08:06 | SWNOTE1 ---
DARREN received a call on Thursday03/26/25 from Hansa in [facility]. Concerns for safety and mental health for discharge of pt and baby. Pt and baby were ready for discharge on Thursday, but due to the concerns, they are staying until Thursday. Requested CPS be called. Pt has an extensive psych history. She has Pseudo Seizures, Anxiety, Depression, Bipolar Disorder, and Disruptive Mood Regulation Disorder. She has told nursing that she stopped taking all of her psych meds except Latuda. She does see a Psychiatrist, Dr. Melecio Plama, but she did not inform him that she stopped taking her meds. She does also see a counselor. Per nurse she did show signs of ticking, rocking back and forth, and tremors during her stay. She does have an apt with Psychiatrist on April 19, but nurse is going to work on moving that appointment up prior to discharge. Also concerns with father of baby. Pt has voiced she wants him to be in counseling so he does not hurt her of the baby. Nurse voiced he admitted to having anger disorder and Major Depressive Disorder. He was hospitalized for it and had to give up his rights of his one year old daughter and is not able to see her. If he gets stable then he can visit with her. Nurse did also note that on Thursday03/25/25 around 4:00pm father of baby did become irritable and manic. Nurse has education both mother and father about feeding baby and the appropriate length of time between feedings and burping baby, but nursing has to repeatedly tell them the same thing. Nurse voiced they are now over feeding baby and every time baby cries they are feeding baby to put baby to sleep. Also not burping baby at times as well, even though nurse has educated several times. Nurse would educate mother and father on care of baby, but then patient would state to nurse that nobody had ever told her. Nurse has several safety concerns for baby. Pt and father of baby do not have a license. They do live with pt's mother at this time, but she can't drive either. The grandmother is the one who transports them to and from appointments. Nurse also assisted with finding a coring machine operator, but pt never called to schedule. On Thursday03/26/25 DARREN called [facility] CPS and informed of the concerns. SW received a call back from Joann Rivas at [facility] and she will be coming to see pt. DARREN called back Nurse Hansa in [facility] and updated. SW spoke with pt over the phone and let her know CPS was coming to see her due to safety concerns and to assist with any resources that are needed. DARREN called back after CPS was done and spoke to nurse Ford. Joann from [facility] did leave a progress note with safety plan in chart. SW to review on Thursday. DARREN completed HIPAA form and sent to
--- NOTE | 2025-03-27 08:27 | P.OBPN_ITS ---
OB - PN: Subj Subjective Patient comments: no complaints and pain well controlled [place] status: doing well Exam Constitutional Vital Signs, click to edit/add: Last Vital Signs Temp 98 F 03/26/25 21:00 Pulse 100 H 03/26/25 21:07 Resp 16 03/26/25 21:00 BP 127/79 03/26/25 21:07 O2 Del Method Room Air 03/26/25 21:00 Documenting provider has reviewed patient's vital signs: yes Common normals: no apparent distress Respiratory Common normals: normal respiratory effort and clear to auscultation bilaterally Cardio Common normals: regular rate and regular rhythm GI Common normals: Normal to inspection, nondistended, normoactive bowel sounds present Extremity Common normals: no clubbing, cyanosis or edema and no calf tenderness OB - PN: A/P Plan - Vaginal Delivery day: 3 Plan: routine care, discharge home and follow up 6 weeks Time Spent with Patient Time: Total time spent is greater than 50% in coordination of care (as documented) at patient's floor/unit and/or counseling patient: Total time spent with greater than 50% in coordination of care (as documented) at patient's floor/unit and/or counseling patient: less than 15 minutes
[2025-03-27] MEDS: LATUDA 20 MG 20 EACH PO (09:12)
[2025-03-27] MEDS: DOCUSATE SODIUM 100 MG CAPSULE PO (09:14)
[2025-03-27 09:15] VITALS: BP 127/64; PULSE 83; TEMP 35.9; TEMP 36; TEMP 36.4
--- NOTE | 2025-03-27 09:48 | SWNOTE1 ---
DARREN reviewed pts' chart. Safety plan is in chart. Pt and father have to have pt's Mother Abbie or grandmother Ruth Ann present at all times. Ruth Ann or Abbie have to be present at discharge of baby. DARREN spoke to from [facility] CPS will be meeting with family at house today at 4:00. DARREN spoke to pt and father of baby in room. Pt is making appointments at this time and her psychiatrist appointment is Thursday and she has counseling visit via telehealth today at 1:00. She also scheduled WIC and research and development manager appointment. Pt and father of baby aware of safety plan as well. No further questions at this time.
--- NOTE | 2025-03-27 15:05 | PC.NURSE ---
Gaudencio Kulkarni RN reviews and agrees with all charting completed by Shayla Hastings LPN.
--- NOTE | 2025-03-27 15:30 | SWNOTE1 ---
DARREN received a call from nurse Carmen. She voiced that when she was reviewing discharge information, pt and father of baby were not paying attention. She also voiced that pt had requested Isidro, father of baby, change baby diaper since it had not been since 10am. Diaper was eventually changed prior to baby discharging, but Isidro threw the diaper at pt and told her to throw it away. DARREN called Joann at [facility] and reported this to her.
== END 2025-03-27 15:05 | disposition home or self-care (01) | DRG 560 ==
PROVIDERS: Admitting Provider Obstetrics & Gynecology; PCP Family Medicine; Visit Provider Obstetrics & Gynecology
PROC: 10E0XZZ Delivery of Products of Conception, External Approach (ICD-10-PCS; CPT 59514; principal; 2025-03-24 02:00)
DX: O99.214 Obesity complicating childbirth (principal); E66.01 Morbid (severe) obesity due to excess calories; O99.344 Other mental disorders complicating childbirth; O70.1 Second degree perineal laceration during delivery; Z3A.39 39 weeks gestation of pregnancy; Z37.0 Single live birth; F39 Unspecified mood [affective] disorder; G40.89 Other seizures; O99.354 Diseases of the nervous system complicating childbirth
CPT/HCPCS: 36415; 51702; 59050; 59410; 80307; 85025; 85027; 86850; 86900; 86901; J0665; J0690; J2274; J2405; J2795; J3010; J3490

== ENCOUNTER 2025-06-13 10:18 | Outpatient (OUT) | payer OTHER, SELFPAY ==
--- OUTSIDE RECORDS SUMMARY | 2024-07-06 05:45 | XMS_ITS ---
Author Organization [facility] in [place] Address [address] [place] [address] Care Team Providers Care Carbider Name Role Phone Patrick Mcleod Primary Care Provider [phone] Jasmin Alvarado [phone] REASON FOR VISIT [facility] [place] [place] passing out potassium low Encounters Encounter Location Date Provider Diagnosis [address] [id number] 07/06/2024 Jasmin Nance Plan Of Treatment No Information Progress Notes * Elly ROMEOB:[birth year] (19 yo F)Acc No.[id number]:07/06/2024 UNLOCKED PROGRESS NOTE Progress Note Patient: Rose Mary GTZ :?Jasmin Nance ([facility]), CNPDOB:2005 ???Age:18 Y???Sex:FemaleDate:07/06/2024hone:[phone]:[address], [place], [id number]:Patrick Mcleod Subjective: * Chief Complaints: * 1 . [facility] passing out potassium low. * Medical History: Objective: * Vitals: Assessment: Plan: * Treatment: * * Electronic signature of Jasmin Nance NP, STAFFING MANAGER.[email or web address] on 06/13/2025 at 10:19 AM ESTSign off status: PendingVisit Status:?CANC (Cancelled) * Provider: Aysha Nance ([facility]), EXHAUST WORKER Date: 1 09/06/2023 Generated for Printing/Faxing/eTransmitting on:?06/13/2025 10:19 AM EST
--- OUTSIDE RECORDS SUMMARY | 2024-08-16 04:29 | XMS_ITS | Continuity of Care Document ---
Author Organization [facility] Address [address] [place] [address] Phone Care Team Providers Care Payable Representative Name Role Phone Rene VALP Alice GALLOWAY Unavailable Unavaila ble Allergies, Adverse Reactions, Alerts Substance Reaction Status Criticality No Known Allergies Active No Inform ation Medications Medication Instructions Dosage Effective Dates (start - stop) Status Comments AUROVELA FE 1-20 TABLET TAKE 1 TABLET BY MOUTH EVERY DAY - Active PreviDent 5000 Plus 1.1 % cream Section with this tooth paste every night before bed, do not eat or drink after. - Active nystatin 100,000 unit/gram topical powder apply by topical route 2 times every day to the affected area(s) 0.00 - Active Lamictal 25 mg tablet take 2 tablet by o ral route 2 times every day 50 MG - Active melatonin ER 5 mg tablet,immediate and extended release 1 x a day - Active Dulera 100 mcg-5 mcg/actuation HFA aerosol inhaler inhale 1 puff by inhalation route every day in the morning and evening 1 puff - Active IBUPROFEN 800 MG TABLET TAKE 1 TABLET BY MOUTH THREE TIMES A DAY WITH FOOD - Active Latuda 60 mg tablet take 1 tablet by ora l route every day with food (at least 350 calories) 60 MG - Active Protonix 20 mg tablet,delayed release take 2 tablet by oral route every day 40 MG - Active fluoxetine 40 mg capsule take 1 capsule by oral route every day in the morning 40 MG - Active Zyrtec 10 mg tablet take 1 tablet by ora l route every day 10 MG - Active Ventolin HFA 90 mcg/actuation aerosol inhaler inhale 2 puff by inhalation route every 4 - 6 hours as needed - Active Problems Condition Type Effective Dates (start - stop) Clini jaylan Status Comments No Known Problems Procedures Procedure Date Resin Three Surfaces Anterior Resin One Surface; Anterior Bitewings Four Films Prophylaxis Adult High Risk [employer] [place] Dis Apr Oral Hygiene Instruction Intraoral-periapical 1st Film [id number]-pklgflymip-ovfc Additional Apr Ypsejklok-rgomrcclus-acli Additional Apr Topical Application Of Fluoride Varnish Periodic Oral Eval Estab Patient 2023 Imm Admin Through 18 Yrs Of Age 023 FLU VAC NO PRSV 4 JOSAFAT 3 YRS+ OFFICE/OUTPATIENT VISIT, EST URINE TEST PREV VISIT, EST, AGE 18-39 Prophylaxis Adult Topical Ovi Of Flouride Varnish 023 High Risk [employer] [place] Dis Nov Oral Hygiene Instruction Periodic Oral Eval Estab Patient 2022 Admin Moderna Bvalent Booster 18 And Old er Moderna Bivalent Booster 18 And Older Ma URINE TEST OFFICE/OUTPATIENT VISIT, EST Imm Admin Through 18 Yrs Of Age 022 MENB RP W/OMV VACCINE IM Moderna COVID Vaccine Admin Dose 2 Moderna COVID-19 Vaccine Resin Composite 1s; Posterior Oral Hygiene Instruction Treatment Completed Imm Admin Through 18 Yrs Of Age FLU VAC NO PRSV 4 JOSAFAT 3 YRS+ Imm Admin Through 18 Yrs Of Age Meningococcal Conjugate Vaccine Imm Admin Through 18 Yrs Of Age MENB RP W/OMV VACCINE IM Moderna COVID Vaccine Admin Dose 1 Moderna COVID-19 Vaccine Resin Composite 2s; Posterior [employer] [place] Dis Apr Oral Hygiene Instruction Resin One Surface; Anterior OFFICE/OUTPATIENT VISIT, EST Prophylaxis Adult Topical Ovi Of Flouride Varnish Periodic Oral Eval Estab Patient 2021 [employer] [place] Dis Jan URINALYSIS NONAUTO W/O SCOPE Depo Provera 1 Ml PREV VISIT, EST, AGE 12-17 THER/PROPH/DIAG INJ, SC/IM OFFICE/OUTPATIENT VISIT, EST Depo Provera 1 Ml THER/PROPH/DIAG INJ, SC/IM URINE TEST OFFICE/OUTPATIENT VISIT, EST OFFICE/OUTPATIENT VISIT, EST Depo Provera 1 Ml Rocephin Injection ROUTINE VENIPUNCTURE THER/PROPH/DIAG INJ, SC/IM URINE TEST Office Visit/FQ URINE TEST Depo Provera 1 Ml OFFICE/OUTPATIENT VISIT, EST THER/PROPH/DIAG INJ, SC/IM Office Visit/FQ Prophylaxis Adult Periodic Oral Eval Estab Patient 2020 Topical Ovi Of Flouride Varnish 021 Bitewings Four Films Oral Hygiene Instruction Depo Provera 1 Ml OFFICE/OUTPATIENT VISIT, EST THER/PROPH/DIAG INJ, SC/IM PREV VISIT, EST, AGE 12-17 Depo Provera 1 Ml THER/PROPH/DIAG INJ, SC/IM Office Visit/[facility] Imm Admin Through 18 Yrs Of Age 020 HPV 9 Valent Imm Admin Through 17 Yrs Of Age 020 FLU VAC NO PRSV 4 JOSAFAT 3 YRS+ PREV VISIT, EST, AGE 12-17 Office Visit/[facility] Bitewings-three Films Prophylaxis Adult Periodic Oral Eval Estab Patient 2018 Topical Ovi Of Flouride Varnish 019 High Risk [employer] [place] Dis Apr Oral Hygiene Instruction Sealant Excluded OFFICE/OUTPATIENT VISIT, EST Imm Admin Through 18 Yrs Of Age 018 TDAP VACCINE >7 IM Imm Admin Through 18 Yrs Of Age 018 Meningococcal Conjugate Vaccine 018 PREV VISIT, EST, AGE 12-17 Imm Admin Through 18 Yrs Of Age 018 HPV 9 Valent Bitewings Four Films Topical Ovi Of Flouride Varnish 018 Periodic Oral Eval Estab Patient 2017 Prophylaxis Child High Risk Sealant Excluded Oral Hygiene Instruction Resin Composite 1s; Posterior 8 Periodic Oral Eval Estab Patient 2016 Prophylaxis Child Topical Ovi Of Flouride Varnish 017 Oral Hygiene Instruction Moderate Risk Prophylaxis Child Topical Ovi Of Flouride Varnish 017 Oral Hygiene Instruction Panoramic Film Comp Oral Eval New/estab Patient 2015 OFFICE/OUTPATIENT VISIT, EST HEP A VACC, PED/ADOL, 2 DOSE FLU VACCINE, NASAL OFFICE/OUTPATIENT VISIT, EST HEP A VACC, PED/ADOL, 2 DOSE DTAP-IPV VACC 4-6 YR IM MMRV VACCINE, SC Advance Directives Directive Yes / No Effective Date File Name No Information Encounters Encounter Description Practice Location Reason(s) For Visit Diagnoses Date Provider Providers Copied on Encounter [facility], [address] [place] [address], [id number] , [place] tel:[phone] [facility] No Information 5 [facility] Alice. [address] [place] [address], [id number], [place]. tel:[phone] [facility], [address] [place] [address], [id number] , [place] tel:[phone] [facility] No Information 4 [facility] Alice. [address] [place] [address], [id number], [place]. tel:[phone] [facility], [address] [place] [address], [id number] , [place] tel:[phone] [facility] Clinic filling (chief complaint) Encounter for screening for dental disorders 4 Jair VANGS Cher. . tel:[phone] [facility], [address] [place] [address], [id number] , [place] tel:[phone] [facility] pa (chief complaint) Body mass index [BMI]40.0-44.9 , adultEncounter for screening for dental disorders 4 Jair VANGS Cher. . tel:[phone] OFFICE/OUTPA TIENT VISIT, EST [facility], [address], [place], [id number] , [place] tel: [phone] [facility] RILEY (chief complaint) ChlamydiaEncou nter for STI screeningBody mass index [BMI]40.0-44.9 , adult- STD High risk heterosexual behavior May- 3 [facility] Alice. [address], [place], [id number], [place]. tel:[phone] PREV VISIT, EST, AGE 18-39 [facility], [address], [place], [id number] , [place] tel: [phone] [facility] annual exam (chief complaint) Encounter for gynecological examination (general) (routine) without abnormal findingsEncoun ter for test, result negativeEncoun ter for STI screeningBody mass index [BMI]40.0-44.9 , adultOCP follow up Rx 3 [facility] Alice. [address], [place], [id number], [place]. tel:[phone] [facility], [address], [place], [id number] , [place] tel: [phone] [facility] AP (chief complaint) Encounter for screening for dental disorders 3 Jair m2p-labs Cher. . tel:[phone] [facility], [address], [place], [id number] , [place] tel: [phone] [facility] No Information 3 Subhash Barakat. [address], [place], [id number], [place]. tel:[phone] OFFICE/OUTPA TIENT VISIT, EST [facility], [address], [place], [id number] , [place] tel: [phone] [facility] vaginal discharge/itch ing (chief complaint) Encounter for test, result negativeEncoun ter for STI screening- STD High risk heterosexual behaviorPre-co nception counseling 3 Rene [facility] Alice. [address], [place], [id number], [place]. tel:[phone] [facility], [address], [place], [id number] , [place] tel:[phone] [facility] No Information 3 Subhash Barakat. [address], [place], [id number], [place]. tel:[phone] [facility], [address], [place], [id number] , [place] tel:[phone] [facility] No Information 2 Subhash Barakat. [address], [place], [id number], [place]. tel:[phone] [facility], [address], [place], [id number] , [place] tel:[phone] [facility] Fill (chief complaint) Encounter for screening for dental disorders 2 Jair [facility] Cher. . tel:[phone] [facility], [address], [place], [id number] , [place] tel:[phone] [facility] Filling (chief complaint) No Information 2 Subhash Barakat. [address], [place], [id number], [place]. tel:[phone] [facility], [address], [place], [id number] , [place] tel:[phone] [facility] Encounter for screening for dental disorders 2 Tristin [facility] Ej. [address] [place], [address], [place]. tel:[phone] [facility], [address], [place], [id number] , [place] tel:[phone] [facility] Filling (chief complaint) Encounter for screening for dental disorders 2 Tristin SI[facility] Ej. [address] [place], [address], [place]. tel:[phone] OFFICE/OUTPA TIENT VISIT, EST [facility], [address], [place], [id number] , [place] tel: [phone] [facility] contraception (chief complaint) Body mass index [BMI]40.0-44.9 , adultOCP follow up Rx 2 [facility] Alice. [address], [place], [id number], [place]. tel:[phone] [facility], [address], [place], [id number] , [place] tel:[phone] [facility] PA (chief complaint) Encounter for screening for dental disorders 2 Yazmin [facility] Mc Herrera. [address], [place], [id number], [place]. tel:[phone] PREV VISIT, EST, AGE 12-17 [facility], [address], [place], [id number] , [place] tel:[phone] [facility] annual exam (chief complaint) - Well woman normal findingsEncoun ter for STI screeningOther problems related to lifestyleEncou nter for surveillance of injectable contraceptiveD ysuriaBody mass index [BMI] 38.0-38.9, adult Nov- 2 [facility] Alice. [address], [place], [id number], [place]. tel:[phone] OFFICE/OUTPA TIENT VISIT, EST [facility], [address], [place], [id number] , [place] tel:[phone] [facility] contraception (chief complaint) Encounter for surveillance of injectable contraceptiveB efren mass index [BMI] 34.0-34.9, adult Aug- 2 [facility] [place]. [address], [place], [id number], [place]. tel:[phone] OFFICE/OUTPA TIENT VISIT, [facility], [address], [place], [id number] , [place] tel: [phone] [facility] Test (chief complaint) Encounter for test, result negativeBody mass index [BMI] 33.0-33.9, adult Aug- 2 [facility] [place]. [address], [place], [id number], [place]. tel:[phone] OFFICE/OUTPA TIENT VISIT, [facility], [address], [place], [id number] , [place] tel: [phone] [facility] abnormal bleeding (chief complaint) Encounter for test, result negative- HIVOther problems related to lifestyleEncou nter for STI screeningEncou nter for surveillance of injectable contraceptive 1 [facility] [place]. [address], [place], [id number], [place]. tel:[phone] OFFICE/OUTPA TIENT VISIT, [facility], [address], [place], [id number] , [place] tel: [phone] [facility] contraception (chief complaint) Body mass index [BMI] 29.0-29.9, adultEncounter for test, result negativeEncoun ter for surveillance of injectable contraceptive 1 [facility] [place]. [address], [place], [id number], [place]. tel:[phone] [facility], [address], [place], [id number] , [place] tel: [phone] [facility] Clinic prophy (chief complaint)prop hy (chief complaint) Encounter for screening for dental disorders 1 Lamine Enriquez. [address] [place] [address], [address], [place]. tel:[phone] OFFICE/OUTPA TIENT VISIT, [facility], [address] [place] [address], [id number] , [place] tel: [phone] [facility] contraception (chief complaint) Body mass index [BMI] 26.0-26.9, adultEncounter for surveillance of injectable contraceptive 1 [facility] [place]. [address], [place], [id number], [place]. tel:[phone] PREV VISIT, EST, AGE 12-17 [facility], [address], [place], [id number] , [place] tel: [phone] [facility] annual exam (chief complaint) Encounter for STI screeningOther problems related to lifestyleBody mass index [BMI] 26.0-26.9, adult- Well woman normal findingsEncoun ter for initial prescription of injectable contraceptive 1 [facility] [place]. [address], [place], [id number], [place]. tel:[phone] PREV VISIT, EST, AGE 12-17 [facility], [address] [place] [address], [id number] , [place] tel: [phone] [facility] annual exam (chief complaint) Body mass index (BMI) 26.0-26.9, adult- Well woman normal findings- STD education 0 [facility] [place]. [address], [place], [id number], [place]. tel:[phone] [facility], [address], [place], [id number] , [place] tel: [phone] [facility] Child Prophy (chief complaint) Encounter for screening for dental disorders 9 Dina Taylor. [address], [place], [id number], [place]. tel:[phone] [facility], [address] [place] [address], [id number] , [place] tel: [phone] [facility] No Information 8 [facility] Alice. [address] [place] [address], [id number], [place]. tel:[phone] OFFICE/OUTPA TIENT VISIT, EST [facility], [address], [place], [id number] , [place] tel: [phone] [facility] contraception (chief complaint) OCP follow up RxBody mass index (BMI) 25.0-25.9, adult Sep-0 8 [facility] [place]. [address], [place], [id number], [place]. tel:[phone] [facility], [address], [place], [id number] , [place] tel: [phone] [facility] No Information 8 Visci DO Yoel. [address], [place], [id number], [place]. tel:[phone] PREV VISIT, EST, AGE 12-17 [facility], [address] [place] [address], [id number] , [place] tel: [phone] [facility] annual exam (chief complaint) - Well woman normal findingsDysmen orrheaOCP initial Rx- STD education 8 [facility] Alice. [address] [place] [address], [id number], [place]. tel:[phone] [facility], [address] [place] [address], [id number] , [place] tel: [phone] [facility] prophy child (chief complaint) Encounter for screening for dental disorders 8 Mayru gerardo DMD Deepasulocha na. [address] [place], [address], [place]. tel:[phone] [facility], [address] [place] [address], [id number] , [place] tel: [phone] [facility] Encounter for screening for dental disorders 8 Leighton perea DMD Sushaen. [address] [place] [address], [address], [place]. tel:[phone] [facility], [address] [place] [address], [id number] , [place] tel: [phone] [facility] Child Prophy (chief complaint) Encounter for screening for dental disorders Sep 2 7 Leonardomile Zion. [address] [place], [place], [id number], [place]. tel:[phone] [facility], [address], [place], [id number] , [place] tel: [phone] [facility] prophy (chief complaint) Encounter for screening for dental disorders 6 7 Ezequiel MONSIVAIS Jinbo. [address] [place], [address], [place]. tel:[phone] [facility], [address] [place] [address], [id number] , [place] tel: [phone] [facility] Encounter for screening for dental disorders 8 6 Ezequiel MONSIVAIS Jinbo. [address] [place] [address], [address], [place]. tel:[phone] OFFICE/OUTPA TIENT VISIT, [facility], [address], [place], [id number] , [place] tel: [phone] [facility] Need for prophylactic vaccination and inoculation against viralhepatitis 1 Subhash Barakat. [address], [place], [id number], [place]. tel:[phone] OFFICE/OUTPA TIENT VISIT, [facility], [address], [place], [id number] , [place] tel: [phone] [facility] No Information 1 Subhash Barakat. [address], [place], [id number], [place]. tel:[phone] Family History Family Member Type Diagnosis Age At Onset Sister Problem Irritable bowel syndrome Mother Problem (finding) depression Mother Problem (finding) Alive and well Father Problem (finding) asthma Sister Problem (finding) Allergies Mother Problem (finding) Allergies Mother Problem Irritable bowel syndrome Mother Problem asthma Father Problem hypertension Father Problem (finding) attention deficit hyper activity disorder Sister Problem (finding) depression Father Problem (finding) depression Father Problem (finding) Alive and well Father Problem (finding) Allergies Sister Problem (finding) asthma Sister Problem Mental illness Mother Problem Mental illness Father Problem (finding) alcoholism Mother Problem (finding) migraine Immunizations Vaccine Date Status Comments Flulaval/ Fluarix administered Source: Ne w Immunization Record Moderna BIV(6Y+) administered Source: New Immunization Record Moderna Covid(12+) administered Source: N ew Immunization Record meningococcal B, OMV, 2 dose schedule administered Source: New Immuniza tion Record Moderna COVID administered Source: New Im munization Record Flulaval/ Fluarix administered Source: Ne w Immunization Record Meningococcal MCV4O administered Source: New Immunization Record meningococcal B, OMV, 2 dose schedule administered Source: New Immuniza tion Record Influenza virus vaccine, quadrivalent, split virus, preservative free administered Source: New Immuniza tion Record HPV (9-valent) administered Source: New I mmunization Record Meningococcal MCV4O administered Source: Other Registry MCV4 administered Source: New Imm unization Record Tdap administered Source: New Imm unization Record HPV (9-valent) administered Source: New I mmunization Record FluMist administered Source: New Imm unization Record Hep A (ped/adol, 2 dose) administered Kira rce: New Immunization Record Kinrix administered Source: New Imm unization Record ProQuad administered Source: New Imm unization Record Hep A (ped/adol, 2 dose) administered Kira rce: New Immunization Record varicella administered Source: Other R egistry DTaP administered Source: Other R egistry pneumococcal conjugate PCV 7 administered Source: Other Registry MMR administered Source: Other R egistry Hib, unspecified formulation administered Source: Other Registry pneumococcal conjugate PCV 7 administered Source: Other Registry Hib (PRP-T) administered Source: Other R egistry DTaP-Hep B-IPV administered Source: Other Registry pneumococcal conjugate PCV 7 administered Source: Other Registry Hib (PRP-T) administered Source: Other R egistry DTaP-Hep B-IPV administered Source: Other Registry pneumococcal conjugate PCV 7 administered Source: Other Registry Hib (PRP-T) administered Source: Other R egistry DTaP-Hep B-IPV administered Source: Other Registry Hep B, adolescent or pediatric administer ed Source: Other Registry Payers Payer name Insurance type Covered green party ID Matty yeung(s) D [employer] [facility] [id number] D Medicaid Wrap - [facility] [id number] [employer] Medicaid [facility] [id number] Medicaid Wrap - FQHC [id number] [employer] Medicaid [facility] 0223 [id number] Medicaid Wrap - [place]QHC [id number] Medicaid Wrap - [place]HC [id number] Medicaid Wrap - [facility]HC [id number] Medicaid Wrap - [facility]HC [id number] Medicaid Wrap - [facility]HC [id number] Medicaid Wrap - [facility]HC [id number] [employer] [id number] Medicaid Wrap - [facility]HC [id number] [employer] [id number] Medicaid Wrap - [facility] [id number] Social History Type Description Quantity Date Captured Comments Sex Female Smoking Status No Information Sexual Orientation Bisexual Gender Identity Female Chief Complaint And Reason For Visit No Information Reason For Referral Reason For Referral No Information Plan Of Treatment Date Type Action Status Goal RLP. Due on due Goal Depression screening. Due on due Goal Tdap Vaccine. Due on 2027 due Goal Tdap due Goal PRAPARE ASSESSMENT. Due on O ct-08-2024 due Goal Unhealthy drug use screening . Due on due Goal Influenza vaccine. Due on due Goal Hepatitis C screening. Due o n due Goal Tdap Vaccine. Due on 2027 due Goal Depression screening. Due on due Goal Hepatitis C screening. Due o n due Goal Tdap due Goal Unhealthy drug use screening . Due on due Goal Influenza vaccine. Due on due Goal PRAPARE ASSESSMENT. Due on S due Goal RLP. Due on due Goal Dietary management education , guidance, and counseling completed Goal Tdap Vaccine. Due on 2027 due Goal PRAPARE ASSESSMENT. Due on O due Goal Influenza vaccine. Due on due Goal RLP. Due on due Goal Unhealthy drug use screening . Due on due Goal Depression screening. Due on due Goal Hepatitis C screening. Due o n due Goal Tdap due Goal Dietary management education , guidance, and counseling completed Goal RLP. Due on due Goal Depression screening. Due on due Goal Tdap due Goal Tdap Vaccine. Due on 2027 due Goal Influenza vaccine. Due on due Goal PRAPARE ASSESSMENT. Due on due Goal Dietary management education , guidance, and counseling completed Goal Tdap due Goal Influenza vaccine. Due on due Goal Depression screening. Due on due Goal RLP. Due on due Goal Tdap Vaccine. Due on 2027 due Goal Hep A. Due on du e Goal Tdap Vaccine. Due on 2027 due Goal Hep A. Due on du e Goal Influenza vaccine. Due on due Goal RLP. Due on due Goal Depression screening. Due on due Goal Tdap due Goal Tdap due Goal RLP. Due on due Goal Influenza vaccine. Due on due Goal Depression screening. Due on due Goal Hep A. Due on du e Goal Tdap Vaccine. Due on 2027 due Goal Hep A. Due on du e Goal Influenza vaccine. Due on due Goal Tdap due Goal Tdap Vaccine. Due on 2027 due Goal Hep A. Due on du e Goal RLP. Due on due Goal Depression screening. Due on due Goal Influenza vaccine. Due on due Goal Depression screening. Due on due Goal Tdap due Goal RLP. Due on due Goal RLP. Due on due Goal Influenza vaccine. Due on due Goal Tdap due Goal Depression screening. Due on due Goal RLP. Due on due Goal Influenza vaccine. Due on due Goal Tdap due Goal Depression screening. Due on due Goal RLP. Due on due Goal Depression screening. Due on due Goal Tdap due Goal Influenza vaccine. Due on due Goal Depression screening. Due on due Goal Tdap due Goal Influenza vaccine. Due on due Goal RLP. Due on due Goal Dietary management education , guidance, and counseling completed Goal Dietary management education , guidance, and counseling completed Goal Dietary management education , guidance, and counseling completed Goal Dietary management education , guidance, and counseling completed Goal Dietary management education , guidance, and counseling completed Goal Dietary management education , guidance, and counseling completed Goal Dietary management education , guidance, and counseling completed Goal Dietary management education , guidance, and counseling completed Goal Dietary management education , guidance, and counseling completed Referral Ordered: Fredi Mcleod MD timeframe: 6 Months. (related to Body mass index [BMI] 40.0-44.9, adult) [id number] Ordered: Referrals: [facility] ordered History Of Present Illness Encounter Date Complaint History Of Arjun nt Illness filling filling carlos alberto carcamo RILEY Patient is here for RILEY for Chlamydia. States she has not been sexually active since being tested. Her partner has not been treated as he is waiting for his mother to make his appt. annual exam Currently pregna nt: no. Patient is not contemplating . The patient states she uses condoms, male for control. Last LMP was 03/10/2023. Her menses is regular with varies flow with a frequency of every 28 days. Negative for dysmenorrhea and menorrhagia. Negative for: breast discharge, breast lump(s), breast pain and breast self exam.Negative for Hormone replacement therapy. The patient does not use tobacco. She does not drink alcohol. Additional information: Patient is here for annual exam. She states her menses are regular menses as she is still on OCPs. She desires to get in the near future. She and her partner have been together for 1 month and she states he is also okay with her getting . Isidoro has a seizure disorder and on several medication. It has been 2 months since her last seizure. When she does get a seizure the last for 2-5 min. She continues to have blackout episodes, but the neurologist is still trying to figure out if they are associated with her seizure disorder. . AP AP vaginal discharge/itching Her sy mptoms began 1 Week ago. Presently the patient is experiencing vaginal itching, vaginal irritation and vaginal odor. Presently the patient is not experiencing vaginal discharge. The patient is premenopausal. Last menstrual period was 09/16/2022. Additional information: Patient c/o increased vaginal discharge and desires to get STD testing. she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
--- OUTSIDE RECORDS SUMMARY | 2024-12-28 10:30 | XMS_ITS ---
Author Organization The [facility] in [place] Address [address] [place] [address] Care Team Providers Care Senior It Auditor Name Role Phone Patrick Mcleod Primary Care Provider REASON FOR VISIT breast issue Encounters Encounter Location Date Provider Diagnosis [id number] [place] [address] 12/28/2024 Patrick Mcleod Plan Of Treatment No Information Progress Notes * Elly ROMEOB:[birth year] (19 yo F)Acc No.[id number]:12/28/2024 UNLOCKED PROGRESS NOTE Progress Note Patient: Rose Mary GTZ :?Fredi Mcleod (NEERU), MDDOB:2005???Age: 18 Y???Sex:FemaleDate:12/28/2024Phone:[phone]:[address], [place], [place] Subjective: * Chief Complaints: * 1 . Breast issue. * Medical History: Objective: * Vitals: Assessment: Plan: * Treatment: * * Electronic signature of Patrick Mcleod MD, [id number] on 06/13/2025 at 10:20 AM EST Sign off status: PendingVisit Status:?N/S N/C (No Show/No Charge) * Provider: Brenda Mcleod MD (TTC) Date: 0 12/28/2024 Generated for Printing/Faxing/eTransmitting on:?06/13/2025 10:20 AM EST
--- OUTSIDE RECORDS SUMMARY | 2025-06-05 11:30 | XMS_ITS ---
Author Organization [facility] in [place] Address [address] [place] [address] Care Team Providers Care Supply Clerk Name Role Phone Patrick Mcleod Primary Care Provider [phone] Allergies No Known Allergies REASON FOR VISIT bowel issues, bowel movement 5-10 times a day mostly diarrhea, right sided pains, started yesterday Medications Medication SIG (Take, Route, Frequency, Duration) Notes Start Date End Date Status Reglan Not-TakingPantoprazole Sodium 40 MGTAKE 1 TABLET BY MOUTH EVERY DAY; Duration: 90ActivePromethazine HClActiveOndansetron 4 MG1 tablet on the tongue and allow to dissolve Orally qid; Duration: 5 days5ActiveVentolin HFA 108 (90 Base) MCG/ACT2 puff as needed Inhalation every 4 hrsPRNActiveMupirocin 2 %1 application Externally Twice a day; Duration: 5 days5ActiveHyoscyamine Sulfate 0.125 MG1-2 tabs SL SL every 4 hrs PRN abd pain05/12/2025Not-Taking Lurasidone HCl 40 MG1 tablet Oral with supper; Duration: 30 daysActiveXifaxan 550 MG1 tablet Orally 3 times a day; Duration: 14 days5Active Dicyclomine HCl 20 MG1 tablet Orally QID; Duration: 30 days5Active Social History Tobacco Use: Social History Observation Description Date Details (start date - stop date) Never Smoker NA - NA Tobacco Use/Smoking Question Answer Notes Patient is a nonsmoker AUDIT-C (Standard) Question Answer Notes Did you have a drink containing alcohol in the p ast year? Yes How often did you have six or more drinks on one occasion in the past year?Never (0 point)How many drinks did you have on a typical day when you were drinking in the past year?1 or 2 drinks (0 point)How often did you have a drink containing alcohol in the past year?2 to 3 times a week (3 points)Ctdmzs4Fbfdwcqiwftukv Positive Problems Problem Type SNOMED Code ICD Code Onset Dates Problem Status W/U Status Risk Notes Problem Irritable bowel (36013550) Irritable esteban l (K58.9) Activeconfirmed Vital Signs Weight 241 lbs 06/05/2025 Height 65 in 06/05/2025 Blood pressure systolic 120 mm Hg 06/05/20 25 Blood pressure diastolic 70 mm Hg 025 BMI 40.1 kg/m2 06/05/2025 Encounters Encounter Location Date Provider Diagnosis [facility] [address] [place] [address] 06/05/2025 Patrick Mcleod Irritable bowel K58. 9 Assessments Encounter Date Diagnosis (ICD Code) Assessment Notes Treatment Notes Treatment Clinical Notes Section Notes 06/05/2025 Irritable bowel (ICD-10 - K58.9) Plan Of Treatment Medication Medication Name Sig Start Date Stop Date Notes Xifaxan 550 MG 1 tablet Orally 3 times a day; Duration : 14 days 06/05/2025 Pending Test Test Name Order Date CULTURE, STOOL 06/05/2025 CALPROTECTIN STOOL 06/05/2025 Lactoferrin, Stool 06/05/2025 C DIFF TOX PCR STOOL 06/05/2025 OCCULT BLOOD X 1, STOOL 06/05/2025 Progress Notes * Patsy ROMEOLeroyB:[birth year] (19 yo F)Acc No.[id number]:06/05/2025 Progress Note Patient: Rose Mary GTZ :?Fredi MLaurita Mcleod ([facility]), MDDOB:2005???Age: 19 Y???Sex:FemaleDate:06/05/2025Phone:[phone]:13 Rolf Thao, BERTHA Todd, [phone] In:04:40 PM ESTCheck Out:05:37 PM EST Subjective: * Chief Complaints: * B owel issues, bowel movement 5-10 times a day mostly diarrhea, right sided pains, started yesterday * HPI: ???General:? Diyclomine helped a litte -? [facility] levsisdaxa dindt help. * ROS: ???EENT:?hearing changes?denies.?visual changes?denies. non-healing mouth sores?denies.?swollen glands or neck lumps?denies.?hoarseness?denies.?sore throat?denies.?difficulty swallowing?denies.?nose bleeds?denies.?nasal congestion?denies.?ear ache?denies.?ear discharge denies.?ringing in ears?denies.?light sensitivity?denies.?eye pain?denies.?blurring?denies.?eye irritation?denies.?double vision?denies. vision loss?denies.?General/Constitutional:?Sweats:?Denies.?Fatigue?denies.?Sleep proble ms?denies.?Anorexia?denies.?Malaise?denies.?Weight loss?denies. Fatigue or Weakness?denies.?Fever or Chills?denies.?Cardiovascular:?Shortness of Breath w/lying flat?denies.?Lightheadedne ss/dizziness?denies.?Chest tightness/ heavy pressure?denies.?Swelling of legs, a nkles, or feet?denies.?Waking up with shortness of breath?denies.?Chest pain&#16 0;denies.?Palpitations?denies.?Weight gain?denies.?Respiratory:?Chronic or frequent cough?denies.?Coughing up blood&#1 60;denies.?Difficulty breathing?denies.?Productive cough?denies.?Snoring&#1 60;denies.?Shortness of breath that awakens from sleep (PND)?denies.?Chest pain? denies.?Sputum production?denies.?Wheezing?denies.?Musculoskeletal:?Joint pain?denies.?Joint Fluid?denies.?Backpain?denies.?Knee pain?denies.?Neck pain?denies.?Joint Stiffness?denies.?Muscle cramps?denies.?Weakness of muscles?denies.?Arthritis?denies.?Muscle aches?denies.?Pain in shoulder(s)?denies.?Swollen joints?denies.? * Active Problem List R35.1 Nocturia Modified On:11/26/2022 Status:vjzsxwjveA77.5Hyperlipidemia Modified On:11/26/2022 Status:hppcgobaiZ94.9Anxiety Modified On:11/26/2022 Status:svudugrbbI71.9Seizures Modified On:11/26/2022 Status:rcgaugvbhV00.9Eczema Modified On:11/26/2022 Status:winoltevrD34.9Allergic rhinitis Modified On:11/26/2022 Status:gjinegllpO92.9Acute bronchitis Modified On:09/01/2023 Status:gnkkqcljhI73Vuqzxvc and collapse Modified On:11/26/2022 Status:mgpoqmfgqC84.40Asthma, moderate persistent Modified On:11/26/2022 Status:riisljhhmX90.3Over weight Modified On:11/26/2022 Status:ronayvjgzD68.2Nausea & vomiting Modified On:11/26/2022 Status:iirzwjrhtZ17.2Allergic rhinitis, seasonal Modified On:11/26/2022 Status:dicmrntdjY82.1Menometrorrhagia Modified On:11/26/2022 Status:ppxfbqqxsK31Nbbs aches Modified On:06/03/2023 Status:hobtjueieS92.129Well child visit Modified On:11/26/2022 Status:idmqenvggX89.2Severe recurrent major depression Modified On:11/26/2022 Status:iudplddglG78.9Dermatitis, seborrheic Modified On:11/26/2022 Status:mfvwanedyZ92.2Plantar fasciitis Modified On:11/26/2022 Status:afdnsqsqhU94.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, unspecified foot Modified On:11/26/2022 Status:cvrtpbrkqG31.1COVID-19 virus infection Modified On:11/26/2022 Status:rebdhknjsM17.9Cough, unspecified Modified On:11/26/2022 Status:vqdocndmqB50.90Acute sinus infection Modified On:06/18/2023 Status:afntyakdpJ87.6Irregular menstruation, unspecified Modified On:08/12/2023 Status:itnowbjiiH69.8Dysfunctional uterine bleeding Modified On:08/12/2023 Status:xfehxsuwlG09.0Ingrown toenail Modified On:10/19/2023 Status:wdldvwrsfB30.9Gastroenteritis Modified On:10/19/2023 Status:gyrxlqkscA88.9Acute gastroenteritis Modified On:03/10/2024 Status:ihrueivklF19.2Neck pain Modified On:10/04/2024 Status:bqmocveqvF15.90Cellulitis Modified On:12/22/2024 Status:hvzphbddbN60.89Pelvic pain syndrome Modified On:05/12/2025 Status:xvmrquiwjA30.9Irritable bowel Modified On:06/05/2025 Status:confirmed * Medical History: * Surgical History: t ubes ears 08/2007 * Hospitalization/Major Diagno stic Procedure: d epression 10/2022 * Family History: F ather: alive 46 yrs. M other: alive 46 yrs. P aternal Grandmother: alive 66 yrs, diagnosed with Arthritis. M aternal Grandmother: alive 67 yrs, diagnosed with Hypertension. 3 sister(s) - healthy. . * Social History: ???Tobacco Use:?Tobacco Use/Smoking?Patient is a?nonsmoker ???Drug/Alcohol:?AUDIT-C (Standard)?Did you have a drink containing alcohol in the past year??Yes ?How often did you have six or more drinks on one occasion in the past year??Never (0 point) ?How many drinks did you have on a typical daywhen you were drinking in the past year??1 or 2 drinks (0 point) ?How often did you have a drink containing alcohol in the past year??2 to 3 times a week (3 points) ?Points?3 ?Interpretation?Positive * Medications: T akingDicyclomine HCl 20 MG Tablet 1 tablet Orally QID Lurasidone HCl 40 MG Tablet 1 tablet Oral with supper Mupirocin 2 % Ointment 1 application Externally Twice a day Ondansetron 4 MG Tablet Disintegrating 1 tablet on the tongue and allow to dissolve Orally qid Pantoprazole Sodium 40 MG Tablet Delayed Release TAKE 1 TABLET BY MOUTH EVERY DAY Promethazine HCl Ventolin HFA(Albuterol Sulfate HFA) 108 (90 Base) MCG/ACT Aerosol Solution 2 puff as needed Inhalation every 4 hrs , Notes to Pharmacist: PRNTaking Dicyclomine HCl 20 MG Tablet 1 tablet Orally QID Taking Lurasidone HCl 40 MG Tablet 1 tablet Oral with supper Taking Mupirocin 2 % Ointment 1 application Externally Twice a day Taking Ondansetron 4 MG Tablet Disintegrating 1 tablet on the tongue and allow to dissolve Orally qid Taking Pantoprazole Sodium 40 MG Tablet Delayed Release TAKE 1 TABLET BY MOUTH EVERY DAY Taking Promethazine HCl Taking Ventolin HFA(Albuterol Sulfate HFA) 108 (90 Base) MCG/ACT Aerosol Solution 2 puff as needed Inhalation every 4 hrs , Notes to Pharmacist: PRNNot- Taking/PRNHyoscyamine Sulfate 0.125 MG Tablet Sublingual 1-2 tabs SL SL every 4 hrs PRN abd pain Reglan Medication List reviewed and reconciled with the patientNot-Taking/PRN Hyoscyamine Sulfate 0.125 MG Tablet Sublingual 1-2 tabs SL SL every 4 hrs PRN abd pain Not-Taking/PRN Reglan Medication List reviewed and reconciled with the patient * Allergies: N .K.D.A.no[Allergies Verified] Objective: * Vitals: W t:241lbs, Ht: 65 in, BP:120/70mm Hg, BMI:40.1Index, Ht-cm: 165.1 cm, Wt-k.32 kg. * Examination: ???Physical Exam: ?GENERAL:?well developed, well nourished, in no acute distress.?HEAD:?normocephalic/atraumatic.?EYES:?pupils equal, round and reactive to light, conjunctivae and sclerae normal.?EARS:?no deformity or lesion of external ear, canals and TM appear normal bilaterally, TM's intact, not inflamed with normal light reflex, hearing grossly normal to conversational speech.?NOSE:?no deformity, discharge, inflammation, or lesions. ?MOUTH:?mucous membranes moist, normal oropharynx and posterior pharynx without lesions or exudates, tongue normal, dentition normal.?NECK:?neck supple, no masses or palpable cervical nodes, trachea midline, thyroid without nodules, masses, tenderness, or enlargement.?CHEST:?no chest wall deformity, no chest wall tenderness. ?LUNGS:?normal respiratory effort and clear to auscultation, no wheezes, rales, or rhonchi, good air exchange.?CARDIO:?regular rate and rhythm, normal S1 and S2, nor murmur, rub, or gallop.?PULSES:?normal capillary refill.?ABDOMEN:?soft, non-distended, non-tender, no masses.?MUSCULOSKELETAL:?no deformity or scoliosis noted, normal range of motion, joints normal, no erythema, edema, effusion, or ecchymosis.?EXTREMITY:?no clubbing, cyanosis, edema, or deformity withnormal ROM in both upper and lower bilateral extremities.?NEUROLOGIC:?grossly normal.?SKIN:?no rashes, ulcerations, or suspicious lesions.?LYMPH NODES:?no cervical adenopathy, nodes normal.?MENTAL STATUS:?alert and oriented x3, normal mood and affect.? Assessment: * Assessment: 1.?Irritable bowel - K58.9 (Primary)??? Plan: * Treatment: Start Xifaxan Tablet, 550 MG, 1 tablet, Orally, 3 times a day, 14 days, 42 Tablet, Refills 0.?LAB: CULTURE, STOOL ?LAB: CALPROTECTIN STOOL ?LAB: Lactoferrin, Stool ?LAB: C DIFF TOX PCR STOOL ?LAB: OCCULT BLOOD X 1, STOOL * Procedure Codes: * Preventive Medicine: ??Screenings/Counseling:?BMI ACTION PLAN?Above Normal BMI Follow-up?Dietary management education, guidance, and counseling * * Sign off status: CompletedVisit Status:?CHK (Check Out) true * Provider: Brenda Mcleod ([facility])MD Date: 1 08/05/2024 Generated for Printing/Faxing/eTransmitting on:?06/13/2025 10:19 AM EST History and Physical Notes * HPI (History of Present Illness) CategorySub-CategoryDetailNotesCategory NotesGeneral Diyclomine helped a adrianate - [place] help Examination CategorySub-CategoryDetailNotesCategory NotesPhysical ExamGENERAL:well developed, well nourished, in no acute distressHEAD:normocephalic/atraumatic EYES:pupils equal, round and reactive to light, conjunctivae and sclerae normal EARS:no deformity or lesion of external ear, canals and TM appear normal bilaterally, TM's intact, not inflamed with normal light reflex, hearing grossly normal to conversational speechNOSE:no deformity, discharge, inflammation, or lesionsMOUTH:mucous membranes moist, normal oropharynx and posterior pharynx without lesions or exudates, tonguenormal, dentition normalNECK:neck supple, no masses or palpable cervical nodes, trachea midline, thyroid without nodules, masses, tenderness, or enlargementCHEST:no chest wall deformity, no chest wall tendernessLUNGS:normal respiratory effort and clear to auscultation, no wheezes, rales, or rhonchi, good air exchangeCARDIO:regular rate and rhythm, normal S1 and S2, nor murmur, rub, or gallopPULSES:normal capillary refillABDOMEN:soft, non-distended, non-tender, no massesRECTAL:MUSCULOSKELETAL:no deformity or scoliosis noted, normal range of motion, joints normal, no erythema, edema, effusion, or ecchymosisEXTREMITY:no clubbing, cyanosis, edema, or deformity with normal ROM in both upper and lower bilateral extremitiesNEUROLOGIC:grossly normalSKIN:no rashes, ulcerations, or suspicious lesionsLYMPH NODES:no cervical adenopathy, nodes normalMENTAL STATUS:alert and oriented x3, normal mood and affect
--- OUTSIDE RECORDS SUMMARY | 2025-06-13 10:19 | XMS_ITS | Clinical Summary ---
Author Organization [facility] Address [address] [place] [address] Phone Care Team Providers Care Credit Reporter Name Role Phone Fredi Mcleod MD Primary Care Provider [phone] Social History Tobacco UseTypesPacks/DayYears UsedDateSmoking Tobacco: Never Assessed CommentsUnknownSex and Gender InformationValueDate RecordedSex Assigned at Not on fileLegal PceJwprre85/26/2022 7:43 AM ESTGender IdentityNot on fileSexual OrientationNot on file Last Filed Vital Signs Vital SignReadingTime TakenCommentsBlood Cxhnyexn929/6303 9:33 AM EDT Nulzo805110/29/2018 9:33 AM ERZXwkuizgjkle23.4 ??C (97.6 ??F)09/02/2018 10:28 AM ESTRespiratory Kxvp479610/29/2018 9:33 AM EDTOxygen Onbuigqyqt76%10/29/2018 9:33 AM EDTInhaled Oxygen Concentration--Ywaowt86 kg (145 lb 8.1 oz)10/29/2018 9:33 AM KZNXqpdnj706 cm (5' 4.17 )10/29/2018 9:33 AM EDTBody Mass Index24.84 10/29/2018 9:33 AM EDT Plan of Treatment Not on file Care Teams Team MemberRelationshipSpecialtyStart DateEnd Date Fredi Mcleod MD [address] [facility] [place] [address] [facility]04
--- OUTSIDE RECORDS SUMMARY | 2025-06-13 10:19 | XMS_ITS | Clinical Summary ---
Author Organization [facility] Address [address] [place] [id number] Care Team Providers Care Counter Top Maker Name Role Phone Unavailable Primary Care Provider Unavailabl e Allergies No known active allergies Social History Tobacco UseTypesPacks/DayYears UsedDateSmoking Tobacco: Never Tobacco Cessation:Counseling Given: Not Answered Area Deprivation IndexAnswerDate RecordedNational Score (1-100), lower number is lower biqn100208/04/2024State Score (1-10), lower number is lower hbbp22908/04/2024 Data from: https://www.neighborhoodatlas.[facility].edu/. Last address used for [address] [place]/04/2024CommentsUnknownSex and Gender InformationValueDate RecordedSex Assigned at BirthNot on fileLegal SexFemale 08/03/2024 2:35 PM ESTGender IdentityNot on fileSexual OrientationNot on file Last Filed Vital Signs Vital SignReadingTime TakenCommentsBlood Hbotyalw338/76008/03/2024 5:17 PM EST Njdaj030108/03/2024 5:14 PM NOYRvktdwajaid06.9 ??C (98.5 ??F)08/03/2024 5:14 PM ESTRespiratory Hnkj718408/03/2024 5:14 PM ESTOxygen Hmfuafzmyn54%08/03/2024 5:14 PM ESTInhaled Oxygen Concentration--Qplpmx875 kg (247 lb)08/03/2024 3:21 PM EST Height--Body Mass Index-- Plan of Treatment Health MaintenanceDue DateLast DoneCommentsPeds To Adult Transition Initial Llhengjzmt44/30/2017Peds To Adult Transition Annual Wfzdwczdtd72/30/2019Anxiety Yboeobwbz17/30/2023epression Lzqpmeozf06/30/2023HIV Ihdckogki53/30/2023 Hepatitis C Vjunajcsn33/30/2023ovid-19 Vaccine ( season)2025 10/03/2022, 07/31/2022, 07/01/2022Influenza Vaccine (#1)/11/2022, 07/01/2022, 08/09/2019, Additional history existsChlamydia Screening (18-) GC (Gonorrhea) Screening (-) DTaP,Tdap,Td Vaccine (7 - Td or Tdap), 01/16/2011, 04/20/2006, Additional history existsHepatitis B BpvgvryUbjinpffj29/21/2005, 05/28/2005, 03/27/2005, Additional history existsHPV BfkqnwmBjpajkglo15/07/2020, 01/26/2018Meningococcal B UmhqxnqWmjbpjlng78/29/2022, 07/01/2022 Procedures Procedure NamePriorityDate/TimeAssociated DiagnosisCommentsGONORRHEA/CHLAMYDIA CNODOKFV52/01/2025 4:57 PM EST from Last 3 Months or Most Recently Relevant to Health Maintenance Results * GONORRHEA/CHLAMYDIA NAAT (08/03/2024 4:57 PM EST)ComponentValueRef RangeTest MethodAnalysis TimePerformed AtPathologist SignatureNeisseria gonorrhoeae RNA Not detectedNot detected [facility] 08/04/2024 2:11 AM [facility] LABChlamydia trachomatis RNA Not detectedNot detected [facility] 08/04/2024 2:11 AM [facility] LABSpecimen (Source) Anatomical Location / LateralityCollection Method / VolumeCollection Time Received TimeUrineURINE / UnknownNon Blood / Yikhwns7508/03/2024 4:57 PM EST 08/03/2024 5:07 PM EST Narrative [facility] - 08/04/2024 2:11 AM EST For screening asymptomatic women, a vaginal swab specimen(APTIMA vaginal swab [id number]) is optimal. Urine specimens have reduced sensitivity for Chlamydia trachomatis or Neisseria gonorrhoeae infection in female patients without symptoms. This FDA-approved assay has been modified to accept rectal swabs self-collected in a healthcare setting. For self-collected rectal swabs, the test was developed and its performance characteristics determined by the [facility]'s [facility] Laboratory Medicine [place] ([facility]). It has not been cleared or approved by the FDA. [facility] is regulated under CLIA as qualified to perform high-complexity testing. This test is used for clinical purposes. It should not be regarded as investigational or for research. Authorizing ProviderResult TypeResult StatusJuan X Mandie MDMICROBIOLOGYFinal ResultPerforming OrganizationAddressCity/State/ZIP CodePhone Number [facility] [address] [address], from Last 3 Months or Most Recently Relevant to Health Maintenance Insurance
--- OUTSIDE RECORDS SUMMARY | 2025-06-13 10:20 | XMS_ITS | Patient Health Record ---
Author Organization [facility] in [place] Address [address] [place] [address] Care Team Providers Care Seed Expert Name Role Phone Patrick Mcleod Primary Care Provider Jasmin Nance [phone] Allergies No Known Allergies Results Component Value Reference Range Notes COVID-19, Flu A+B IH Reviewed date:12/01/2024 12:24:16 PM Interpretation: Performing Lab: Notes/Report: COVID neg FLU AnegFLU BnegControlpresentCOVID-19, Flu A+B IH Reviewed date:12/01/2024 12:24:16 PM Interpretation: Performing Lab: Notes/Report: COVID-FLU A-FLU B-Control+UA DIP NONAUTO WO MICRO (92790) - IN OFFICE (Not yet reviewed by provider) Interpretation: Performing Lab: Notes/Report: COLORlight yelliwCLARITYclearGLUCOSEnBILIRUBINnKETONEnSPECIFIC GRAVITY1.010BLOOD nPH6.0CBMEUGP75VSMZIUSCYOILuRRSIETBoSAZLVCHUT ESTERASEnRUBELLA AB IGG Reviewed date:09/01/2024 08:02:56 PM Interpretation: Performing Lab: Notes/Report: [facility] ,Rubella Antibodies, IgG1.09Immune >0.99 index Chief Clerk Shelter: Boubacar Richardson PhD, Phone: [phone] Non-immune <0.90 [address] [place], [place] [id number] Equivocal 0.90 - 0.99 Immune >0.99 Performed at: [facility] Performing Lab:see [facility] LBType and Screen Reviewed date:09/01/2024 08:02:56 PM Interpretation: Performing Lab: Notes/Report: [facility] ,Blood TypeA PositiveAntibody ScreenNEGATIVEHIV Ab/p24 Ag with Reflex Reviewed date:09/01/2024 08:02:56 PM Interpretation: Performing Lab: Notes/Report: [facility] ,HIV Ab/p24 Ag ScreenNon ReactiveNon Reactive HIV Negative Performed at: [facility] HIV-1/HIV-2 antibodies and HIV-1 p24 antigen were NOT Chief Clerk Shelter: Boubacar Richardson PhD, Phone: [phone] [address] [place] [phone] detected. There is no laboratory evidence of HIV infection. Performing Lab:[facility]ody RFX to Quant PCR Reviewed date:09/01/2024 08:02:56 PM Interpretation: Performing Lab: Notes/Report: [facility] ,HCV AbNon ReactiveNon ReactiveInterpretation:Comment. infection. Not infected with HCV unless early or acute infection is suspected (which may be delayed in an immunocompromised individual), or other evidence exists to indicate HCV Performing Lab:see [facility] LBBenzodiazepine Conf, MS, UR Reviewed date:09/03/2024 04:18:03 PM Interpretation: Performing Lab: Notes/Report: [facility] ,XpunmtvrrdtdqbsZjmankziEthfdw=866 Chief Clerk Shelter: Reagan Rinaldi PhD, Phone: [phone] Performed at: [facility] [address], [place] [id number] Performing Lab:see [facility] LBGLUCOSE BLOOD Reviewed date:03/15/2025 12:38:13 PM Interpretation: Performing Lab: Notes/Report: [facility] ,Jekmxmp56323-846 mg/dLPerforming Lab:see juan - [facility] LB GLYCOHEMOGLOBIN A1C Reviewed date:03/15/2025 12:38:13 PM Interpretation: Performing Lab: Notes/Report: [facility] ,Glycohemoglobin A1C5.34.5-6.2 % ACTION SUGGESTED ADA THERAPEUTIC TARGET < 7.0 > 7.0 ADA RECOMMENDED LIMIT 4.0 - 6.0 Estimated Average Aqgdwdc982Lqjlmmfsoz Lab:see noteML - [facility] LB LIPID PROFILE Reviewed date:03/15/2025 12:38:13 PM Interpretation: Performing Lab: Notes/Report: [facility] ,Rvxrbavflkmoa384<=150 mg/fUWtfukiklgdf642<=200 mg/dLHDL Ipvaynvtjwr2681-81 mg/dL > or =60 mg/dl - LOW CARDIOVASCULAR RISK <40 mg/dl - HIGH CARDIOVASCULAR RISK LDL Cholesterol Cmeseqxkzt077.0 130-159 mg/dl BORDERLINE HIGH 100-129 mg/dl NEAR OR ABOVE OPTIMAL >190 mg/dl VERY HIGH <100 mg/dl OPTIMAL 160-189 mg/dl HIGH VLDL FJDRAMYBRNJ37.2Chol HDL Ratio4.3 3.3 - 4.4 LOW RISK 7.1 - 11.0 MODERATE RISK 4.4 - 7.1 AVERAGE RISK >11.0 HIGH RISK Performing Lab:see noteML - [facility] LBE coli Shiga Toxin EIA Reviewed date:03/18/2025 04:47:25 PM Interpretation: Performing Lab: Notes/Report: [facility] ,E coli Shiga Toxin EIASee Below For ReportE coli Shiga Toxin EIAE coli Shiga Toxin EIANegativeE coli Shiga Toxin EIAE coli Shiga Toxin EIAPerformed at: - [facility] coli Shiga Toxin EIAE coli Shiga Toxin [address] [place], [place] [id number] coli Shiga Toxin EIAE coli Shiga Toxin EIALab Director: Boubacar Richardson PhD, Phone: [phone] coli Shiga Toxin EIAPerforming Lab:see note SEE REPORT - Casing In Line Setter Id information not found for OBX-specific furniture reproducer legend LC - [facility] LB Campylobacter Culture Reviewed date:03/20/2025 01:30:36 PM Interpretation: Performing Lab: Notes/Report: [facility] ,Campylobacter CultureSee Below For Report Campylobacter Culture No Campylobacter species isolated. Performing Lab:see noteLC - [facility] LBB pertussis IgG/M/A Ab Reviewed date:03/22/2025 12:59:44 PM Interpretation: Performing Lab: Notes/Report: [facility] ,B pertussis IgG Ab1.410.00-0.94 index Negative <0.95 Positive >1.04 Equivocal 0.95 - 1.04 B pertussis IgM Ab<1.00.0-0.9 index Negative <1.0 Borderline 1.0 - 1.1 Positive >1.1 B pertussis IgA Ab<1.00.0-0.9 index Borderline 1.0 - 1.1 Chief Clerk Shelter: Trini Suárez MD, Phone: [phone] Performed at: - [facility] Sulphur Negative <1.0 [address], [place] [id number] Positive >1.1 Performing Lab:see noteLC - [facility] LBDRUG SCREEN RAPID (URINE) Reviewed date:03/23/2025 12:41:27 PM Interpretation: Performing Lab: Notes/Report: [facility] ,Cannabinoid Screen UrineNEGATIVENEGATIVEPhencyclidine Screen UrineNEGATIVE NEGATIVECocaine Screen UrineNEGATIVENEGATIVEMethamphetamines Screen Urine NEGATIVENEGATIVEOpiate Screen UrineNEGATIVENEGATIVEAmphetamine Screen Urine NEGATIVENEGATIVEBenzodiazepines Screen UrineNEGATIVENEGATIVETricyclic Antidepressant UrineNEGATIVENEGATIVEMethadone Screen UrineNEGATIVENEGATIVE Barbiturates Screen UrineNEGATIVENEGATIVEOxycodone Screen UrineNEGATIVENEGATIVE Buprenorphine Screen UrineNEGATIVENEGATIVE PCP (Phencyclidine): 25 ng/mL BAR (Barbiturates): 200 ng/mL OXY (Oxycodone): 100 ng/mL AMP (Amphetamine): 500 ng/mL BZO (Benzodiazepines): 150 ng/mL TCA (Trycyclic Antidepressants): 300 ng/mL BUP (Buprenorphine): 10 ng/mL mAMP (Methamphetamine): 500 ng/mL THC (Cannabinoids): 50 ng/mL RAJAT (Cocaine): 150 ng/mL MTD (Methadone): 200 ng/mL DRUG CLASS TEST SYSTEM CUT-OFF CONCENTRATIONS ARE OPI (Opiates): 100 ng/mL FOLLOWS: Performing Lab:see noteML - [facility] LBCBC no Diff (Hemogram) Reviewed date:03/23/2025 12:41:27 PM Interpretation: Performing Lab: Notes/Report: [facility] ,White Blood Count7.54.0-11.0 10 3/uLRed Blood Count3.694.20-5.40 10 6/uL Pbcsmwxqxv22.112.0-16.0 g/tXMugumzkdxi95.236.0-48.0 %Mean Corpuscular Gpxmue95.8 81.0-99.0 fLMean Corpuscular Nzrouconmr25.426.7-34.0 pgMean Corpuscular HGB Conc 33.429.9-35.2 g/dLRed Cell Distribution Width14.511.0-15.0 %Platelet Ckvay375 150-450 10 3/uLMean Platelet Zizvpd27.49.5-13.5 fLPerforming Lab:see noteML - [facility] LBType and Screen Reviewed date:03/23/2025 12:41:27 PM Interpretation: Performing Lab: Notes/Report: [facility] ,Blood TypeA PositiveAntibody ScreenNEGATIVECBC AUTO DIFF Reviewed date:03/26/2025 11:07:19 AM Interpretation: Performing Lab: Notes/Report: [facility] ,White Blood Count8.74.0-11.0 10 3/uLRed Blood Count3.424.20-5.40 10 6/uL Hemoglobin9.112.0-16.0 g/uCIzrcdvqmts17.636.0-48.0 %Mean Corpuscular Csiuwj73.6 81.0-99.0 fLMean Corpuscular Owyjbnnzyd11.626.7-34.0 pgMean Corpuscular HGB Conc 31.829.9-35.2 g/dLRed Cell Distribution Width14.711.0-15.0 %Platelet Ubugj916 150-450 10 3/uLMean Platelet Iquhsw66.19.5-13.5 fLNeutrophils Percent Auto55.3 43.0-75.0 %Lymphocytes Percent Auto35.520.5-60.0 %Monocytes Percent Auto7.11.7- 12.0 %Eosinophils Percent Auto1.70.9-7.0 %Basophils Percent Auto0.30.2-2.0 % Immature Granulocytes Pct Auto0.10.0-0.5 %Neutrophils Absolute Auto4.81.4-6.5 10 3/uLLymphocytes Absolute Auto3.11.2-3.8 10 3/uLMonocytes Absolute Auto0.60.3-0.8 10 3/uLEosinophils Absolute Auto0.20.0-0.7 10 3/uLBasophils Absolute Auto0.00.0- 0.1 10 3/uLImmature Granulocytes Abs Auto0.010.00-0.03 10 3/uLPerforming Lab:see noteML - [facility] LBE coli Shiga Toxin EIA Reviewed date:03/20/2025 01:30:36 PM Interpretation: Performing Lab: Notes/Report: [facility] ,E coli Shiga Toxin EIASee Below For Report E coli Shiga Toxin EIA E coli Shiga Toxin EIANegative E coli Shiga Toxin EIA E coli Shiga Toxin EIAPerformed at: - [facility] E coli Shiga Toxin EIA E coli Shiga Toxin [id number] [place], [place] [id number] E coli Shiga Toxin EIA E coli Shiga Toxin EIALab Director: Boubacar Richardson PhD, Phone: [phone] E coli Shiga Toxin EIA Performing Lab:see note SEE REPORT - Casing In Line Setter Id information not found for OBX-specific furniture reproducer legend LC - [facility] LB Salmonella/Shigella Screen Reviewed date:03/20/2025 01:30:36 PM Interpretation: Performing Lab: Notes/Report: [facility] ,Salmonella/Shigella ScreenSee Below For Report Salmonella/Shigella Screen Salmonella/Shigella ScreenNo Salmonella or Shigella recovered. Salmonella/Shigella Screen Performing Lab:see noteLC - [facility] LBStrep Gp B Culture+Rflx Reviewed date:03/07/2025 02:41:05 PM Interpretation: Performing Lab: Notes/Report: [facility] ,Strep Gp B Culture+RflxSee Below For ReportStrep Gp B Culture+RflxStrep Gp B Culture+RflxNegativeStrep Gp B Culture+RflxStrep Gp B Culture+RflxCenters for Disease Control and Prevention (CDC) andStrep Gp B Culture+RflxStrep Gp B Culture+RflxAmerican Congress of Obstetricians and GynecologistsStrep Gp B Culture+RflxStrep Gp B Culture+Rflx(ACOG) guidelines for prevention of group BStrep Gp B Culture+RflxStrep Gp B Culture+Rflxstreptococcal (GBS) disease specify co-collection ofStrep Gp B Culture+RflxStrep Gp B Culture+Rflxa vaginal and rectal swab specimen to maximizeStrep Gp B Culture+RflxStrep Gp B Culture+Rflxsensitivity of GBS detection. Per the CDC and ACOG,Strep Gp B Culture+RflxStrep Gp B Culture+Rflxswabbing both the lower vagina and rectum Strep Gp B Culture+RflxStrep Gp B Culture+Rflxsubstantially increases the yield of detectionStrep Gp B Culture+RflxStrep Gp B Culture+Rflxcompared with sampling the vagina alone.Strep Gp B Culture+RflxStrep Gp B Culture+RflxPenicillin G, ampicillin, or cefazolin are indicatedStrep Gp B Culture+RflxStrep Gp B Culture+Rflxfor intrapartum prophylaxis of GBSStrep Gp B Culture+Rflx Strep Gp B Culture+Rflxcolonization. Reflex susceptibility testing should be Strep Gp B Culture+RflxStrep Gp B Culture+Rflxperformed prior to use of clindamycin only on GBSStrep Gp B Culture+RflxStrep Gp B Culture+Rflxisolates from penicillin-allergic women who areStrep Gp B Culture+RflxStrep Gp B Culture+Rflxconsidered a high risk for anaphylaxis. Treatment withStrep Gp B Culture+RflxStrep Gp B Culture+Rflxvancomycin without additional testing is warranted ifStrep Gp B Culture+RflxStrep Gp B Culture+Rflxresistance to clindamycin is noted.Strep Gp B Culture+RflxStrep Gp B Culture+RflxPerformed at: CB - [facility] RoswellStrep Gp B Culture+RflxStrep Gp B Culture+[address] [place], [place] [id number] Gp B Culture+RflxStrep Gp B Culture+RflxLab Director: Boubacar Richardson PhD, Phone: [phone] Gp B Culture+Rflx Performing Lab:see note LC - [facility] LB SEE REPORT - Casing In Line Setter Id information not found for OBX-specific furniture reproducer legend Glucose 1 Hour Reviewed date:12/01/2024 12:24:16 PM Interpretation: Performing Lab: Notes/Report: [facility] ,Glucose 1 Azga640<130 mg/dLPerforming Lab:see noteML - [facility] LB AFP, Serum, Open Spina Bifida Reviewed date:12/03/2024 05:23:02 PM Interpretation: Performing Lab: Notes/Report: N N LMP [id number] 6 21 N 1 Y 244 N N N N N White/ [facility] ,ResultsReport.Test Results:*Screen Negative*.Gest. Age on Collection Date23.0. weeksGestat. Age Based OnLMP. by LMP and ultrasound are within 10 days. Recalculations are not recommended when gestational dating Maternal Age At EDD20.2. yrRaceCaucasian.Tomdlp343. lbsInsulin Dep DiabetesNo. Multiple GestationNo.AFP Value56.8. ng/mLAFP MoM0.90.OSBR Risk 1 [id number]. InterpretationComment. Down Syndrome or Trisomy 18. If screening for Down Syndrome Interpretation: Screen Negative detected by this test. This test does not screen for or Trisomy 18 is desired, contact [facility] to discuss available options. The Finnish calculated is based on the gestational age provided. MS-AFP This result is screen negative for OSB. The AFP MoM amniocentesis be offered to women age 35 and older. Closed neural tube defects and some open defects may not be College of Obstetricians and Gynecologists recommends can identify up to 80% of open neural tube defects. Comment:Comment. This test was developed and its performance characteristics Elena Andrea, Ph.D., DABCC determined by [employer]. It has not been cleared or approved Abbreviation Definitions IDD 2.0 Twins 4.5 Director Performed at: [facility] by the Food and Drug Administration. IDD - Insulin Dep Diabetes OSBR - Open Spina Bifida Risk Multiples Of Median Cutoffs References: Available Upon Request. For further inquiries contact [facility] at [phone]. [address], [place] [phone] For AFP Elevations Chief Clerk Shelter: Ximena Almeida [facility], Phone: [phone] [place] 2.5 Black 2.8 Performing Lab:see noteLC - [facility] LBCBC AUTO DIFF Reviewed date:12/01/2024 12:24:16 PM Interpretation: Performing Lab: Notes/Report: [facility] ,White Blood Count8.84.0-11.0 10 3/uLRed Blood Count3.834.20-5.40 10 6/uL Bzxawlxwru86.012.0-16.0 g/hWTnbwuewlad02.736.0-48.0 %Mean Corpuscular Txlmuu96.4 81.0-99.0 fLMean Corpuscular Iiblouubem63.726.7-34.0 pgMean Corpuscular HGB Conc 33.629.9-35.2 g/dLRed Cell Distribution Width13.511.0-15.0 %Platelet Uyxtb989 150-450 10 3/uLMean Platelet Volume9.79.5-13.5 fLNeutrophils Percent Auto66.9 43.0-75.0 %Lymphocytes Percent Auto25.020.5-60.0 %Monocytes Percent Auto5.31.7- 12.0 %Eosinophils Percent Auto2.30.9-7.0 %Basophils Percent Auto0.20.2-2.0 % Immature Granulocytes Pct Auto0.30.0-0.5 %Neutrophils Absolute Auto5.91.4-6.5 10 3/uLLymphocytes Absolute Auto2.21.2-3.8 10 3/uLMonocytes Absolute Auto0.50.3-0.8 10 3/uLEosinophils Absolute Auto0.20.0-0.7 10 3/uLBasophils Absolute Auto0.00.0- 0.1 10 3/uLImmature Granulocytes Abs Auto0.030.00-0.03 10 3/uLPerforming Lab:see noteML - [facility] LBBox Test Reviewed date:08/31/2024 08:49:09 PM Interpretation: Performing Lab: Notes/Report: [facility] ,BOX Test Sent OutUNITYBOX Test Reference LabUNITYBOX Test Date Sent08/31/24 Performing Lab:see noteML - [facility] LBUrine Culture, Routine Reviewed date:09/03/2024 04:18:03 PM Interpretation: Performing Lab: Notes/Report: [facility] ,Urine Culture, RoutineSee Below For ReportUrine Culture, RoutineUrine Culture, RoutineMixed urogenital floraUrine Culture, RoutineUrine Culture, RoutineLess than 10,000 colonies/mLUrine Culture, RoutineUrine Culture, RoutinePerformed at: CB - [facility] RoswellUrine Culture, RoutineUrine Culture, [address] [place], [place] [id number] Culture, RoutineUrine Culture, RoutineLab Director: Boubacar Richardson PhD, Phone: [phone] Culture, RoutinePerforming Lab:see note - [facility] LB SEE REPORT - Casing In Line Setter Id information not found for OBX-specific furniture reproducer legend HBsAg Screen Reviewed date:09/01/2024 08:02:56 PM Interpretation: Performing Lab: Notes/Report: [facility] ,HBsAg ScreenNegativeNegative [address] [place], [place] [id number] Performed at: [facility] Chief Clerk Shelter: Boubacar Richardson PhD, Phone: [phone] Performing Lab:[facility] LBRapid Plasma Reagin, Quant Reviewed date:09/01/2024 08:02:56 PM Interpretation: Performing Lab: Notes/Report: [facility] ,Rapid Plasma Reagin, QuantNon ReactiveNonRea<1:1 titer screening and diagnosis of syphilis. This test is (468853). infection, a reflex cascade that includes both RPR and a [address] [place], [place] [id number] Treponema pallidum (Syphilis) Screening [place] (803545) or Rapid Plasma Reagin (RPR) Test With Reflex to Quantitative treated for syphilis infection. To screen for syphilis Performed at: [facility] treponema-specific assay should be utilized, such as Chief Clerk Shelter: Boubacar Richardson PhD, Phone: [phone] Please Note: This test does not meet current guidelines for intended for following treatment response in patients being RPR and Confirmatory Treponema pallidum Antibodies Performing Lab:[facility] LBGLYCOHEMOGLOBIN A1C Reviewed date:08/31/2024 08:49:09 PM Interpretation: Performing Lab: Notes/Report: [facility] ,Glycohemoglobin A1C4.94.5-6.2 % > 7.0 ADA RECOMMENDED LIMIT 4.0 - 6.0 ACTION SUGGESTED ADA THERAPEUTIC TARGET < 7.0 Estimated Average Llkqtvh55Otlmjaozez Lab:see noteML - [facility] LB DRUG SCREEN RAPID (URINE) Reviewed date:08/31/2024 08:49:09 PM Interpretation: Performing Lab: Notes/Report: [facility] ,Cannabinoid Screen UrineNEGATIVENEGATIVEPhencyclidine Screen UrineNEGATIVE NEGATIVECocaine Screen UrineNEGATIVENEGATIVEMethamphetamines Screen Urine NEGATIVENEGATIVEOpiate Screen UrineNEGATIVENEGATIVEAmphetamine Screen Urine NEGATIVENEGATIVEBenzodiazepines Screen UrinePOSITIVENEGATIVETricyclic Antidepressant UrineNEGATIVENEGATIVEMethadone Screen UrineNEGATIVENEGATIVE Barbiturates Screen UrineNEGATIVENEGATIVEOxycodone Screen UrineNEGATIVENEGATIVE Buprenorphine Screen UrineNEGATIVENEGATIVE OPI (Opiates): 100 ng/mL BUP (Buprenorphine): 10 ng/mL BZO (Benzodiazepines): 150 ng/mL FOLLOWS: RAJAT (Cocaine): 150 ng/mL mAMP (Methamphetamine): 500 ng/mL MTD (Methadone): 200 ng/mL BAR (Barbiturates): 200 ng/mL PCP (Phencyclidine): 25 ng/mL OXY (Oxycodone): 100 ng/mL DRUG CLASS TEST SYSTEM CUT-OFF CONCENTRATIONS ARE TCA (Trycyclic Antidepressants): 300 ng/mL THC (Cannabinoids): 50 ng/mL AMP (Amphetamine): 500 ng/mL Performing Lab:see noteML - [facility] LBCBC AUTO DIFF Reviewed date:08/31/2024 08:49:09 PM Interpretation: Performing Lab: Notes/Report: [facility] ,White Blood Count7.04.0-11.0 10 3/uLRed Blood Count4.644.20-5.40 10 6/uL Yvcuukoyct20.812.0-16.0 g/sBSgkjnipfjy15.836.0-48.0 %Mean Corpuscular Zbldok81.6 81.0-99.0 fLMean Corpuscular Wuhrifwjcz12.626.7-34.0 pgMean Corpuscular HGB Conc 33.029.9-35.2 g/dLRed Cell Distribution Width14.811.0-15.0 %Platelet Gjcup563 150-450 10 3/uLMean Platelet Volume9.49.5-13.5 fLNeutrophils Percent Auto62.7 43.0-75.0 %Lymphocytes Percent Auto25.920.5-60.0 %Monocytes Percent Auto6.61.7- 12.0 %Eosinophils Percent Auto4.30.9-7.0 %Basophils Percent Auto0.40.2-2.0 % Immature Granulocytes Pct Auto0.10.0-0.5 %Neutrophils Absolute Auto4.41.4-6.5 10 3/uLLymphocytes Absolute Auto1.81.2-3.8 10 3/uLMonocytes Absolute Auto0.50.3-0.8 10 3/uLEosinophils Absolute Auto0.30.0-0.7 10 3/uLBasophils Absolute Auto0.00.0- 0.1 10 3/uLImmature Granulocytes Abs Auto0.010.00-0.03 10 3/uLPerforming Lab:see noteML - [facility] LBXR cervical spine 2-3V Reviewed date:10/04/2024 03:49:13 PM Interpretation: Performing Lab: Notes/Report: Source Facility: [place] [address] [place] [address] XRay Report Signed Patient: ROSE MARY ROMEO MR#: [id number] : 2005 Acct:[id number] Age/Sex: 18 / F ADM Date: 10/04/24 Loc: RAD Attending Dr: JASMIN NANCE Ordering Physician: JASMIN NANCE Date of Service: 10/04/24 Procedure(s): XR cervical spine 2-3V Accession Number(s): [id number] cc: JASMIN NANCE ; Fredi Mcleod M.D. [place] [address] Patient Name: ROSE MARY ROMEO MRN: [id number] date: 2005 Sex: F Assigned Patient Location: [facility] Current Patient Location: [facility] Accession/Order Number: [id number] Exam Date: 10/04/2024 15:18 Report Date: 10/04/2024 15:20 At the request of: JASMIN NANCE Procedure: XR cervical spine 2-3V CERVICAL SPINE - 3 views: CLINICAL HISTORY: Posterior neck pain since fall 2 weeks ago COMPARISON: None AP lateral and odontoid views were obtained. There is straightening of the normal cervical lordosis. There is minimal anterolisthesis of C2 on C3 and C3 on C4. No acute fractures are identified. No disproportionate disc space narrowing or hypertrophy is seen. The atlantoaxial relationship is maintained. There is no prevertebral soft tissue swelling. XR/XR cervical spine 2-3V IMPRESSION: LOSS OF THE NORMAL CERVICAL LORDOSIS. NO ACUTE BONY FINDINGS. Impression dictated by: Kaila Naqvi M.D.10/04/2024 3:20 PM Dictation Location: [place] [address] Electronically authenticated by: [id number] Y Date: 10/04/2024 15:20 Dictated By: Kaila Naqvi M.D. Signed By: 10/04/24 1523 DD/ 1520 TD/TT: Commodity Buyer: Reason For Referral No Information Medications Medication SIG (Take, Route, Frequency, Duration) Notes Start Date End Date Status Reglan Not-TakingPantoprazole Sodium 40 MGTAKE 1 TABLET BY MOUTH EVERY DAY; Duration: 90ActivePromethazine HClActiveMupirocin 2 %1 application Externally Twice a day; Duration: 5 days5ActiveOndansetron 4 MG1 tablet on the tongue and allow to dissolve Orally qid; Duration: 5 days5ActiveHyoscyamine Sulfate 0.125 MG1-2 tabs SL SL every 4 hrs PRN abd pain05/12/2025Not-TakingLurasidone HCl 40 MG1 tablet Oral with supper; Duration: 30 daysActiveXifaxan 550 MG1 tablet Orally 3 times a day; Duration: 14 days5ActiveDicyclomine HCl 20 MG1 tablet Orally QID; Duration: 30 days5ActiveVentolin HFA 108 (90 Base) MCG/ACT2 puff as needed Inhalation every 4 hrsPRNActive Social History Tobacco Use: Social History Observation Description Date Details (start date - stop date) Never Smoker NA - NA Tobacco Use/Smoking Question Answer Notes Patient is a nonsmoker Alcohol Screen (Audit-C) Question Answer Notes Did you have a drink containing alcohol in the p ast year? No Lfqoki1OvcexnmlemuqgwGjldexjfRREXI-M (Standard) Question Answer Notes Did you have [...] year?2 to 3 times a week (3 points)Fulmie8Zcpuqhpuiteidf Positive Problems Problem Type SNOMED Code ICD Code Onset Dates Problem Status W/U Status Risk Notes Problem Syncope and collapse (251204553) Syncope and collapse (R55) ActiveconfirmedProblemIrregular menstruation (72582411)Irregular menstruation, unspecified (N92.6)ActiveconfirmedProblemNocturia (335350211)Nocturia (R35.1) ActiveconfirmedProblemHyperlipidemia (51905615)Hyperlipidemia (E78.5)Active confirmedProblemAnxiety (79038657)Anxiety (F41.9)ActiveconfirmedProblemSeizure (41423545)Seizures (R56.9)ActiveconfirmedProblemNeck pain (23223896)Neck pain (M54.2)ActiveconfirmedProblemEczema (08863456)Eczema (L30.9)Activeconfirmed ProblemAllergic rhinitis (42901352)Allergic rhinitis (J30.9)Activeconfirmed ProblemAcute bronchitis (11419335)Acute bronchitis (J20.9)ActiveconfirmedProblem Cellulitis (019671006)Cellulitis (L03.90)ActiveconfirmedProblemModerate persistent asthma (652517306)Asthma, moderate persistent (J45.40)Activeconfirmed ProblemIngrown toenail (315207536)Ingrown toenail (L60.0)ActiveconfirmedProblem Plantar fasciitis (660642652)Plantar fasciitis (M72.2)ActiveconfirmedProblem Acute sinusitis (76359300)Acute sinus infection (J01.90)ActiveconfirmedProblem Gastroenteritis (96009604)Gastroenteritis (K52.9)ActiveconfirmedProblem Overweight (935025629)Over weight (E66.3)ActiveconfirmedProblemNausea and vomiting (30987306)Nausea & vomiting (R11.2)ActiveconfirmedProblemSeasonal allergic rhinitis (971999547)Allergic rhinitis, seasonal (J30.2)Activeconfirmed ProblemMenometrorrhagia (753334608)Menometrorrhagia (N92.1)Activeconfirmed ProblemDysfunctional uterine bleeding (59777358645964)Dysfunctional uterine bleeding (N93.8)ActiveconfirmedProblemAcute gastroenteritis (31352264)Acute gastroenteritis (K52.9)ActiveconfirmedProblemIrritable bowel (17151534)Irritable bowel (K58.9)ActiveconfirmedProblemGeneralized aches and pains (45590817)Body aches (R52)ActiveconfirmedProblemWell child visit (710781301)Well child visit (Z00.129)ActiveconfirmedProblemSevere recurrent major depression (959500558636) Severe recurrent major depression (F33.2)ActiveconfirmedProblemSeborrheic dermatitis (83121054)Dermatitis, seborrheic (L21.9)ActiveconfirmedProblemPelvic pain syndrome (N94.89)ActiveconfirmedProblemCongenital metatarsus primus varus, 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)ActiveconfirmedProblemDisease caused by Severe acute respiratory syndrome coronavirus 2 (disorder) (959886443)COVID-19 virus infection (U07.1)ActiveconfirmedProblemCough (finding) (07770400)Cough, unspecified (R05.9)Activeconfirmed Vital Signs Temperature 98.4 degrees Fahrenheit 05/12/2025 Blood pressure evnoiskjn01 mm Hg06/05/2025MI Xkbxhavtjk49.51 %12/22/2024Height 65 in06/05/2025lood pressure mm Hg06/05/20259933Dactgp086 lbs108/05/2024 BMI40.1 kg/m206/05/2025 Encounters Encounter Location Date Provider Diagnosis [address] [place] [address] 10/24/2024 Patrick Hoy Body aches R52 ; Cou gh R05.9 and Acute bronchitis, unspecified organism J20.9 [facility] [address] [place] [address] 03/15/2025 Patrick Hoy Acute non-recurrent sinusitis, unspecified location J01.90 ; Nasal congestion R09.81 and Gastroenteritis K52.[address] [address] 10/04/2024 Jasmin Nance Nasal congestion R09 .81 and Neck pain M54.[address] [address] 12/22/2024 Patrick Hoy Cellulitis L03.[address] [address] 05/12/2025 Patrick Hoy Gastroenteritis K52. 9 ; UTI (urinary tract infection) N39.0 and Pelvic pain syndrome N94.[address] [address] 06/05/2025 Patrick Hoy Irritable bowel K58. [address] [address] 07/06/2024 Patrick Hoy Syncope R55 [address] [place] [address] 08/18/2024 Patrick Hoy Body aches R52 ; Productive cough R05.8 ; Acute non-recurrent sinusitis, unspecified location J01.90 and Nasal congestion R09.[address] [address] 10/04/2024 Jasmin Nance [address] [place] [address] 03/15/2025[facility] [place] [address]/[facility] [place] [address] [facility] [place] [address]/Doquincy Mcledo Assessments Encounter Date Diagnosis (ICD Code) Assessment Notes Treatment Notes Treatment Clinical Notes Section Notes 07/06/2024 Syncope (ICD-10 - R55) 08/18/2024ody aches (ICD-10 - R52)08/18/2024Productive cough (ICD-10 - R05.8) 10/04/2024Nasal congestion (ICD-10 - R09.81) negative flu and covid supportive care 10/04/2024Neck pain (ICD-10 - M54.2) after a fall on ice not getting better 5Body aches (ICD-10 - R52)5Cough (ICD-10 - R05.9)12/22/2024 Cellulitis (ICD-10 - L03.90)5Acute non-recurrent sinusitis, unspecified location (ICD-10 - J01.90)Rest and drink more liquids, especially water. You may use a humidifier or vaporizer to help keep the drainage moist. Ytoi-yrb-nttovxh Nasal Saline may help the stuffy and runny nose. Use Ibuprofen and or Tylenol as needed for fever, chills, body aches or pain. Children 5 years old should not be given hisy-awr-zaypglu cough and cold medications such as guaifenesin and dextromethorphan. If you're over age 5, you may try gfnh-ojc-efclyek cold medications such as guaifenesin and dextromethorphan, or multi-symptom cold reliever such as Dayquil to help reduce the symptoms. Antibiotics have been pre scribed. You should take these until completed and follow the directions. Antibiotics can sometimescause upset stomach, and in rare cases, serious allergic reactions or serious gastrointestinal problems. If you start having severe abdominal pain, severe vomiting, or bloody diarrhea, you should be r eevaluated by your physician or urgent care immediately. Follow up with your Primary Care Provider or return to clinic if symptoms do not improve within 3-5 days05/12/2025UTI (urinary tract infection) (ICD-10 - N39.0)05/12/2025 Gastroenteritis (ICD-10 - K52.9)06/05/2025Irritable bowel (ICD-10 - K58.9) 05/12/2025Pelvic pain syndrome (ICD-10 - N94.89)03/15/2025Nasal congestion (ICD- 10 - R09.81)03/15/2025Gastroenteritis (ICD-10 - K52.9)5Acute bronchitis, unspecified organism (ICD-10 - J20.9)Rest and drink more liquids, especially water. You may use a humidifier or vaporizer to help keep the drainage moist. Czwk-ahy-sopapce Nasal Saline may help the stuffy and runny nose. Use Ibuprofen and or Tylenol as needed for fever, chills, body aches or pain. Children 5 years old should not be given fmmw-voe-zocsvjr cough and cold medications such as guaifenesin and dextromethorphan. If you're over age 5, you may try jfje-zbh-jhlqrbo cold medications such as guaifenesin and dextromethorphan, or multi-symptom cold reliever such as Dayquil to help reduce the symptoms. Antibiotics have been prescribed. You should take these until completed and follow the directions. Antibiotics can sometimescause upset stomach, and in rare cases, serious allergic reactions or serious gastrointestinal problems. If you start having severe abdominal pain, severe vomiting, or bloody diarrhea, you should be reevaluated by your physician or urgent care immediately. Follow up with your Primary Care Provider or return to clinic if symptoms do not improve within 3-5 days. If you develop severe symptoms such as shortness of breath, repeated vomiting, coughing up blood, or chest pain you should go to the emergency room or call [phone]/5Acute non- recurrent sinusitis, unspecified location (ICD-10 - J01.90)Rest and drink more liquids, especially water. You may use a humidifier or vaporizer to help keep th e drainage moist. Afdo-wcd-aaxfpqv Nasal Saline may help the stuffy and runny nose. Use Ibuprofen and or Tylenol as needed for fever, chills, body aches or pain. Children 5 years old should not be given pgqb-ypg-pdbkebu cough and cold medications such as guaifenesin and dextromethorphan. If you're over age 5, you may try sqbm-ibw-pcxmoxo cold medications such as guaifenesin and dextromethorphan, or multi-symptom cold reliever such as Dayquil to help reduce the symptoms. Antibiotics have been prescribed. You should take these until completed and follow the directions. Antibiotics can sometimescause upset stomach, and in rare cases, serious allergic reactions or serious gastrointestinal problems. If you start having severe abdominal pain, severe vomiting, or bloody diarrhea, you should be reevaluated by your physician or urgent care immediately. Follow up with your Primary Care Provider or return to clinic if symptoms do not improve within 3-5 days08/18/2024Nasal congestion (ICD-10 - R09.81) Plan Of Treatment Pending Test Test Name Order Date Tilt Table Test 11/10/2022 CULTURE, STOOL 06/05/2025 CULTURE, STOOL 03/10/2024 CULTURE, STOOL 03/15/2025 XR Chest PA and Lateral (Routine CXR) * 01/27/2024 CALPROTECTIN STOOL 06/05/2025 UA DIP NONAUTO WO MICRO (06495) - IN OFF ICE 05/12/2025 Lactoferrin, Stool 06/05/2025 C DIFF TOX PCR STOOL 06/05/2025 C DIFF TOX PCR STOOL 03/15/2025 C DIFF TOX PCR STOOL 03/10/2024 COVID-19, Flu A+B IH 10/24/2024 SARS COVID-2 NASAL - PCR 04/14/2023 US PELVIS AND TRANSVAG 05/12/2025 XR FOOT LT MIN 3 VIEWS 12/31/2023 XR WRIST LT MIN 3 V 12/31/2023 B. PERTUSSIS AB IGA/IGG/IGM 03/15/2025 OCCULT BLOOD X 1, STOOL 06/05/2025 Insurance Providers Payer Name Payer Address Payer Phone Subscriber Number Group Number Insured Name Patient Relationship to Insured Coverage Start Date Coverage End Date [employer] [place] [employer] [address] [place] [address] [id number] Lula Romeo - patient is the [id number] 2022 Medical (General) History Medical History History ICD Code Syncope and collapse R55 Hyperlipidemia E78.5 Acute bronchitis J20.9 Menometrorrhagia N92.1 Acute sinusitis J01.90 Cough, unspecified R05.9 Nausea & vomiting R11.2 Body aches R52 COVID-19 virus infection U07.1 Seizures R56.9 Allergic rhinitis J30.9 Asthma, moderate persistent J45.40 Over weight E66.3 Anxiety F41.9 Plantar fasciitis M72.2 Dermatitis, seborrheic L21.9 Severe recurrent major depression F33.2 Allergic rhinitis, seasonal J30.2 Nocturia R35.1 Eczema L30.9 Well child visit Z00.129 Congenital metatarsus primus varus, 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
--- OUTSIDE RECORDS SUMMARY | 2025-06-13 10:20 | XMS_ITS | Clinical Summary ---
Author Organization [facility] Address [address] [place] [address] Care Team Providers Care Classification Analyst Name Role Phone Fredi Mcleod MD Primary Care Provider [phone] Medications MedicationSigDispense QuantityRefillsLast FilledStart DateEnd DateStatus pantoprazole Sodium (Protonix) 40 MG Pack Take 1 packet by mouth.05/11/2023ctive Ondansetron 4 MG Tab Dispersible tablet Take 1 tablet by mouth once.06/18/2023ctive nystatin 869781 UNIT/GM Powder powder Apply 1 Application topically.06/16/2023ctive mometasone Furo-Formoterol Fum (Dulera) 200-5 MCG/puff Aerosol Inhale 2 puffs every 12 hours.Active 08/22 1-20 MG-MCG tablet Take 1 tablet by mouth daily.Active Active Problems ProblemNoted DateDiagnosed Datebody mass index of 40.0-49.9108/30/2022 Social History Tobacco UseTypesPacks/DayYears UsedDateSmoking Tobacco: Some Days Tobacco Cessation:Ready to Q uit: Not Asked; Counseling Given: Not Answered Comments:vape CommentsUnknownSex and Gender InformationValueDate RecordedSex Assigned at BirthNot on fileLegal JzhBsnorn98/08/2023 8:58 AM ESTGender IdentityNot on fileSexual OrientationNot on file Last Filed Vital Signs Vital SignReadingTime TakenCommentsBlood Pressure--Pulse--Temperature-- Respiratory Dvnl910608/30/2022 1:40 PM ESTOxygen Saturation--Inhaled Oxygen Concentration--Uaqgqw734.3 kg (260 lb 12.8 oz)06/30/2023 1:40 PM TEOYxphia238.1 cm (5' 5 )06/30/2023 1:40 PM ESTBody Mass Index43. 1:40 PM EST Plan of Treatment Health MaintenanceDue DateLast DoneCommentsGONORRHEA WOTXOG89 2004HEPATITIS C VIRUS JLPFYLIBN25/30/2005HIV SCREENING ZTXLRNOVTJ43/30/2020CHLAMYDIA SCREEN 1PNEUMOCOCCAL VACCINE SERIES (1 of 2 - PCV)/, 07/23/2005, 05/28/2005, Additional history existsCOVID-19 VACCINE ( season)503/10/2022, 07/31/2022, 07/01/2022INFLUENZA VACCINE (#1) 510/11/2022, 07/01/2022, 07/01/2022, Additional history existsTETANUS 8001/28/2018, 01/16/2011, 04/20/2006, Additional history existsHEP B ZWREBYCJnyiufyok10/21/2005, 05/28/2005, 03/27/2005, Additional history exists TDAP (ADULT)Juxnygdwl17/28/2018, 04/20/2006HPV VACCINE SOLBIviihcwlx80/07/2020, 08/09/2019, 01/26/2018, Additional history existsHPV OBXCXFHGwbqnxkhj86/07/2020, 08/09/2019, 01/26/2018, Additional history existsMCV4 VACCINEDiscontinued 07/01/2022, 07/01/2022, 01/28/2018, Additional history exists Insurance Care Teams Team MemberRelationshipSpecialtyStart DateEnd Fredi Mcleod MD PCP - GeneralFamily Byeqrxvp26/8/23
--- OUTSIDE RECORDS SUMMARY | 2025-06-13 10:20 | XMS_ITS | Clinical Summary ---
Author Organization [facility] Address [address] [place] [address] Care Team Providers Care Bisque Ware Dipper Name Role Phone Fredi Mcleod MD Primary Care Provider [phone] Allergies No known active allergies Medications MedicationSigDispense QuantityRefillsLast FilledStart DateEnd DateStatus lurasidone (Latuda) 40 MG tablet Take 20 mg by mouth in the evening. Take with mealsActive MV-Min-Fe Fum-FA-DHA ( 1 PO) Take 1 each by mouth DailyActive pantoprazole (ProtoNix) 40 MG EC tablet Take 40 mg by mouth in the morning. Take before meals.5Active norethindrone-ethinyl estradiol (08/22) 1-20 MG-MCG tablet Indications:6 weeks follow-up ([facility])Take 1 tablet by mouth Daily for 28 days Take 1 tablet by mouth daily 28 tablet 1115Active Active Problems ProblemNoted DateDiagnosed DateMood /03/2024Altered mental status 4Psychogenic nonepileptic tdrlhni6702/03/2024 Encounters DateTypeDepartmentCare FwhrFfgkfrpmjik91/06/2025 10:30 AM EDTPostpartum Visit KEV MILLER [address] [place] [address] [place] [address] Neeta Garrido NP 6 weeks follow-up ([facility])03/26/2025bstract KEV MILLER [address] [place] [address] Jewell Almanzar CNM 03/26/2025bstract [facility] [address] [place] [address] Jewell Almanzar [facility] 5Clinisync Result Encounter [facility] Unsolicited Ranjit Zamudio, DO 03/24/2025bstract [facility] [address] [place] [address] Ranjit Zamudio, DO 03/24/2025bstract [facility] [address] [place] [address] Ranjit Zamudio, DO 03/24/2025bstract [facility] [address] [place] [address] Ranjit Zamudio, DO 5Clinisync Result Encounter [facility] Unsolicited Ranjit Zamudio, DO 03/22/2025Telephone [facility] [address] [place] [address] Ranjit Zamudio, DO 03/21/2025 11:00 AM EDTRoutine [facility] [address] [place] [address] Ranjit Zamudio, DO 38 weeks gestation of ([facility]); Third trimester ([facility]); Elevated BP without diagnosis of oocngugdekvh41/19/2025amboo flowsheet [facility] [address] [place] [address] Ranjit Zamudio, DO 03/15/2025 11:20 AM EDTRoutine [facility] [address] [place] [address] Ranjit Zamudio, DO 37 weeks gestation of ([facility]); Third trimester ([facility]); Stomach pain03/15/2025amboo flowsheet [facility] [address] [place] [address] Ranjit Zamudio DO from Last 3 Months Family History Medical HistoryRelationNameCommentsADD / ADHDFatherAllergiesFatherAllergies MotherDepressionMotherMigrainesMotherAllergiesSiblingDepressionSiblingRelation NameStatusCommentsFatherMotherSibling Social History Tobacco UseTypesPacks/DayYears UsedDateSmoking Tobacco: NeverSmokeless Tobacco: NeverAlcohol UseStandard Drinks/WeekCommentsNever0 (1 standard drink = 0.6 oz pure alcohol)caffeine: 1-2 cups per dayCommentsNoSex and Gender InformationValueDate RecordedSex Assigned at BirthNot on fileLegal SexFemale 10/15/2022 7:00 PM EDTGender IdentityNot on fileSexual OrientationNot on file Last Filed Vital Signs Vital SignReadingTime TakenCommentsBlood Ztkyyeyx788/8410 10:41 AM EDT Wdpjv2076 4:12 PM ESTTemperature--Respiratory Rate--Oxygen Saturation-- Inhaled Oxygen Concentration--Oljjoi793 kg (244 lb 6 oz)05/08/2025 10:41 AM EDT Noykep419.6 cm (5' 6 )08/11/2024 4:12 PM ESTBody Mass Index39.44008/11/2024 4:12 PM EST Plan of Treatment DateTypeDepartmentCare Team (Latest Contact Info)Zmnbrussafd49/02/2026 1:00 PM EDTProcedure Visit [facility] [address] [place] [address] Ranjit Zamudio DO [address] [place], [place] [id number] Health MaintenanceDue DateLast DoneCommentsCOVID-19 Vaccine ( season) , 07/31/2022, 07/01/2022Influenza Vaccine (#1)2025 05/06/2023, 07/01/2022, 08/09/2019, Additional history existsPneumococcal Vaccine: Pediatrics (0 to 5 Years) and At-Risk Patients (6 to 64 Years)Aged Out No longer eligible based on patient's age to complete this topic Procedures Procedure NamePriorityDate/TimeAssociated DiagnosisCommentsALL CBC WITH AUTO MOYERsoyyim12/23/2025 7:33 AM EDT [facility] CBC WITH PLATELET NO SYFZVXZKGFAYCcjnyqx90/21/2025 5:25 AM EDT [facility] DRUG SCREEN RAPID (URINE)Dovhgom7903/23/2025 5:20 AM EDT POCT URINALYSIS GLSGZQKCEudckpf60/19/2025 11:27 AM EDT 38 weeks gestation of ([facility]) Third trimester ([facility]) POCT URINALYSIS AOFBFQKRLwsyppd86/13/2025 11:08 AM EDT 37 weeks gestation of ([facility]) Third trimester ([facility]) from Last 3 Months Results * (ABNORMAL) ALL CBC WITH AUTO DIFF (03/25/2025 7:33 AM EDT)ComponentValueRef RangeTest MethodAnalysis TimePerformed AtPathologist SignatureTBH WBC8.74.0 - 11.0 10 3/uLTBHTBH RBC3.42(L)4.20 - 5.40 10 6/uLTBHTBH HGB9.1(L)12.0 - 16.0 g/dLTBHTBH HCT28.6(L)36.0 - 48.0 %TBHTBH MCV83.681.0 - 99.0 fLTBHTBH MCH26.6 (L)26.7 - 34.0 pgTBHTBH MCHC31.829.9 - 35.2 g/dLTBHTBH RDW14.711.0 - 15.0 %TBH TB TTI471290 - 450 10 3/uLTBHTBH MPV10.19.5 - 13.5 fLTBHNEUTROPHILS PERCENT AUTO55.343.0 - 75.0 %TBHLYMPHOCYTES PERCENT AUTO35.520.5 - 60.0 %TBHMONOCYTES PERCENT AUTO7.11.7 - 12.0 %TBHTBH EO %1.70.9 - 7.0 %TBHBASOPHILS PERCENT AUTO 0.30.2 - 2.0 %TBHIMMATURE GRANULOCYTES PCT AUTO0.10.0 - 0.5 %TBHNEUTROPHILS ABSOLUTE AUTO4.81.4 - 6.5 10 3/uLTBHLYMPHOCYTES ABSOLUTE AUTO3.11.2 - 3.8 10 3/uLTBHMONOCYTES ABSOLUTE AUTO0.60.3 - 0.8 10 3/uLTBHTBH EO #0.20.0 - 0.7 10 3/uLTBHBASOPHILS ABSOLUTE AUTO0.00.0 - 0.1 10 3/uLTBHIMMATURE GRANULOCYTES ABS AUTO0.010.00 - 0.03 10 3/uLTBHSpecimen (Source)Anatomical Location / LateralityCollection Method / VolumeCollection TimeReceived Time03/25/2025 7:33 AM EDT03/25/2025 7:50 AM EDT Narrative CLINISYNC - 03/25/2025 8:01 AM EDT Authorizing ProviderResult TypeResult StatusCorey Robb DOCLINISYNCFinal Result Performing OrganizationAddressCity/State/ZIP CodePhone Number [facility] * (ABNORMAL) [facility] CBC WITH PLATELET NO DIFFERENTIAL (03/23/2025 5:25 AM EDT) ComponentValueRef RangeTest MethodAnalysis TimePerformed AtPathologist SignatureTBH WBC7.54.0 - 11.0 10 3/uLTBHTBH RBC3.69(L)4.20 - 5.40 10 6/uLTBH TBH HGB10.1(L)12.0 - 16.0 g/dLTBHTBH HCT30.2(L)36.0 - 48.0 %TBHTBH MCV81.881.0 - 99.0 fLTBHTBH MCH27.426.7 - 34.0 pgTBHTBH MCHC33.429.9 - 35.2 g/dLTBHTBH RDW 14.511.0 - 15.0 %TBHTBH FGJ552240 - 450 10 3/uLTBHTBH MPV10.49.5 - 13.5 fLTBH Specimen (Source)Anatomical Location / LateralityCollection Method / Volume Collection TimeReceived Time03/23/2025 5:25 AM EDT03/23/2025 5:36 AM EDT Narrative CLINISYNC - 03/23/2025 5:43 AM EDT Authorizing ProviderResult TypeResult StatusCorey Robb DOCLINISYNCFinal Result Performing OrganizationAddressCity/State/ZIP CodePhone Number [facility] * [facility] DRUG SCREEN RAPID (URINE) (03/23/2025 5:20 AM EDT)ComponentValueRef Range Test MethodAnalysis TimePerformed AtPathologist SignatureCANNABINOID SCREEN URINENEGATIVENEGATIVETBHPHENCYCLIDINE SCREEN URINENEGATIVENEGATIVETBHCOCAINE SCREEN URINENEGATIVENEGATIVETBHMETHAMPHETAMINES SCREEN URINENEGATIVENEGATIVE TBHOPIATE SCREEN URINENEGATIVENEGATIVETBHAMPHETAMINE SCREEN URINENEGATIVE NEGATIVETBHBENZODIAZEPINES SCREEN URINENEGATIVENEGATIVETBHTRICYCLIC ANTIDEPRESSANT URINENEGATIVENEGATIVETBHMETHADONE SCREEN URINENEGATIVENEGATIVE TBHBARBITURATES SCREEN URINENEGATIVENEGATIVETBHOXYCODONE SCREEN URINENEGATIVE NEGATIVETBHBUPRENORPHINE SCREEN URINENEGATIVENEGATIVETBHComment: DRUG CLASS TEST SYSTEM CUT-OFF CONCENTRATIONS ARE FOLLOWS: AMP (Amphetamine): 500 ng/mL BAR (Barbiturates): 200 ng/mL BZO (Benzodiazepines): 150 ng/mL BUP (Buprenorphine): 10 ng/mL RAJAT (Cocaine): 150 ng/mL mAMP (Methamphetamine): 500 ng/mL MTD (Methadone): 200 ng/mL OPI (Opiates): 100 ng/mL OXY (Oxycodone): 100 ng/mL PCP (Phencyclidine): 25 ng/mL THC (Cannabinoids): 50 ng/mL TCA (Trycyclic Antidepressants): 300 ng/mL Specimen (Source)Anatomical Location / LateralityCollection Method / Volume Collection TimeReceived Time03/23/2025 5:20 AM EDT03/23/2025 5:36 AM EDT Narrative CLINISYNC - 03/23/2025 5:51 AM EDT Authorizing ProviderResult TypeResult StatusCorey Robb DOCLINISYNCFinal Result Performing OrganizationAddressCity/State/ZIP CodePhone Number [facility] * (ABNORMAL) POCT urinalysis dipstick manually resulted (03/21/2025 11:27 AM EDT) Only the most recent of2 resultswithin the time period is included. ComponentValueRef RangeTest MethodAnalysis TimePerformed AtPathologist Signature Color, UAAmberClarity, UAClearGlucose, UANegativeNegative - 2000(110) ++++ mg/dL Bilirubin, UANegativeNegative - 4(70) +++ mg/dLKetones, UANegativeNegative - 160(16) ++++ mg/dLSpec Grav, UA1.0301 - 1.03Blood, UANegativeNegative - 50 Balwinder/mcLpH, UA6.05 - 9Protein, UAPositiveNegative - 2000(20) ++++ mg/dLComment:1+ Urobilinogen, UA1.00.2 - 12 mg/dLLeukocytes, UAPositiveNegative - 500+++ Uzair/mcL Nitrite, UANegativeNegative - PositiveSpecimen (Source)Anatomical Location / LateralityCollection Method / VolumeCollection TimeReceived ViqaPmylf69/19/2025 11:27 AM EDT Narrative Authorizing ProviderResult TypeResult StatusCorey Robb DOPOINT OF CARE TEST ENTER/EDIT ORDERABLESFinal Result from Last 3 Months Insurance Care Teams Team MemberRelationshipSpecialtyStart DateEnd Date Fredi Mcleod MD [address] [place] [address] PCP - Generalmi Medicine02/08/24
--- NOTE | 2025-06-13 10:23 | US_ITS ---
The [address] [address] Patient Name: VAL SCHNEIDER MRN: [id number] date: 2005 Sex: F Assigned Patient Location: US Current Patient Location: US Accession/Order Number: [id number] Exam Date: 06/13/2025 10:30 Report Date: 06/13/2025 11:48 At the request of: CLAUDIA ELLINGTON MD Procedure: US pelvis w/ transvaginal ULTRASOUND PELVIS WITH TRANSVAGINAL CLINICAL DATA: Pelvic pain since giving 3 months ago. COMPARISON: None Real-time ultrasound evaluation the pelvis was performed utilizing both a transabdominal and transvaginal approach. TRANSABDOMINAL: Estimated uterine size is approximately 8.2 x 2.9 x 4.8 cm. No focal myometrial abnormalities are seen. The endometrial lining is estimated at 5 mm. Both ovaries are identified. The right ovary measures 2.2 x 2.3 x 1.7 cm. The left ovary is high and measures 3.0 x 3.3 x 2.2 cm. There are no adnexal cysts. TRANSVAGINAL: Transvaginal imaging was performed to better evaluate the uterus and adnexa. No focal myometrial abnormalities are seen. By this approach the endometrial lining is estimated at 4 - 5 mm. The right ovary is again seen however the left is not identified due to positioning. There are no adnexal cysts. No free fluid is seen. US/US pelvis w/ transvaginal IMPRESSION: WITHIN NORMAL LIMITS. Impression dictated by: Kaila Naqvi M.D. 06/13/2025 11:48 AM Dictation Location: [place] [address] Electronically authenticated by: [id number] Y Date: 06/13/2025 11:48
== END 2025-06-13 10:19 | disposition home or self-care (01) ==
LOC: US 10:18
PROVIDERS: PCP Family Medicine; Visit Provider Family Medicine
DX: N94.89 Other specified conditions associated with female genital organs and menstrual cycle (principal)
CPT/HCPCS: 76830; 76856